=== PATIENT | male | born 1945 | race Caucasian/White ===

== ENCOUNTER 2018-05-28 19:17 | Emergency (ER) | payer MEDICARE, OTHER, SELFPAY ==
[2018-05-28 19:19] VITALS: BP 155/89; PULSE 85; PULSE 89; RESP 17; TEMP 36.7; O2SAT 95; BMI 34.6
[2018-05-28] MEDS: Ondansetron 4 MG/2 ML Vial IV (19:55)
[2018-05-28] MEDS: Morphine 4 MG/ML Syringe IV (19:55)
[2018-05-28] MEDS: 0.9% Normal Saline 1,000 ML 100 ML IV (19:55)
--- NOTE | 2018-05-28 20:10 | RAD_ITS ---
STUDY: X-RAY CHEST REASON FOR EXAM: Male, 72 years old. Cough, chills. TECHNIQUE: PA and lateral views of the chest. COMPARISON: November 28, 2013 FINDINGS: The lungs remain hyperinflated. There is no new focal consolidation. Normal size heart. Normal mediastinum and lou. Normal visualized pulmonary arteries. Normal visualized aortic arch and descending thoracic aorta. There are diffuse degenerative changes of the visualized thoracic spine. Normal visualized ribs, clavicles, and shoulders. There are air-fluid levels within distended loops of small bowel within the visualized abdomen. RAD/Chest PA and Lateral IMPRESSION: No acute cardiopulmonary process. Possible small bowel ileus or evolving partial obstruction. Electronically Signed: Deisy Henriquez MD at 21:13 EST Tel , Service support ,
[2018-05-28 20:16] LABS: Absolute Lymphocyte Count 0.95 X10^3/ul (0.83-4.51); Absolute Neutrophil Count 4.9 X10^3/uL (2.0-7.7); Basophil# 0.02 X10^3/uL; Basophil% 0.3 % (0-1); Eosinophil# 0.22 X10^3/uL; Eosinophils% 3.3 % (0-5); Hematocrit 45.4 % (40-54); Hemoglobin 14.7 g/dl (13.0-16.5); Lymphocyte # 0.95 X10^3/ul (4.0); Lymphocyte % 14.2 % (19-41); Mean Corp Hgb Conc 32.4 g/gl (32-36); Mean Corpuscular Hgb 29.1 pg (27.0-32.0); Mean Corpuscular Volume 89.7 fL (80-94); Mean Platelet Vol. 9.3 fl (6.2-12.0); Neutrophil # 4.87 X10^3/uL (2.7-7.7); Neutrophil % 73.1 % (47-70); POSITIVE COUNT NO; POSITIVE DIFFERENTIAL NO; POSITIVE MORPHOLOGY NO; Platelet Count 140 K/mm3 (150-450); RBC Distribution Width CV 14.2 % (11.6-14.6); RBC Distribution Width SD 46.1 fl (35.1-43.9); Red Blood Count 5.06 M/mm3 (4.6-6.2); White Blood Count 6.7 K/mm3 (4.4-11.0)
[2018-05-28 20:30] LABS: AST(SGOT) 22 U/L (15-37); Alanine Aminotransfer ALT/SGPT 36 U/L (16-61); Albumin, Serum 3.5 g/dL (3.2-5.0); Alkaline Phosphatase 87 U/L (45-117); Anion Gap 9 (5-15); BUN 17 mg/dL (7-18); BUN/Creat Ratio 9.2 RATIO (10-20); Bilirubin, Direct 0.13 mg/dL (0.00-0.30); Calcium,Total 8.9 mg/dL (8.5-10.1); Chloride 105 mmol/L (98-107); Creatinine, Serum 1.85 mg/dL (0.70-1.30); EST Glomerular Filtration Rate 38 mL/min (>60); Est Glom Filt Rate - Afr Amer 47 mL/min (>60); Estimated Creatinine Clearance 33.05 ml/min; Globulin 3.3 g/dL (2.2-4.2); Glucose 158 mg/dL (74-106); Potassium 3.9 mmol/L (3.5-5.1); Protein, Total 6.8 g/dL (6.4-8.2); Sodium Level 139 mmol/L (136-145)
[2018-05-28 20:42] LABS: Bacteria 0 SEEN /hpf (None Seen); Mucous, Urine 0 SEEN /hpf (<or=2+)
[2018-05-28 20:46] LABS: Color, Urine Yellow (Yellow); Glucose, Dipstick Normal (Normal); Ketone-Dipstick Negative (Negative); Leukocyte Esterase-Dipstick 25 /ul (Negative); Nitrite-Dipstick Negative (Negative); Occult Blood-Urine 25 /ul (Negative); Protein-Dipstick 15 mg/dl (Negative); Urine Bilirubin Dipstick Negative (Negative); Urine Clarity Clear (Clear); Urine Urobilinogen Normal (Normal)
[2018-05-28 21:13] LABS: Red Blood Cells-Urine 0-5 SEEN /hpf (0-5); Squamous Epithelial Cells - UA 0-5 SEEN /hpf (0-5); White Blood Cells 0-5 SEEN /hpf (0-5)
--- NOTE | 2018-05-28 22:11 | ED.DCSUM_ITS ---
- ER Visit Summary Date of Service: 05/28/18 Chief Complaint: Cough, chills, body aches History of Present Illness: The patient is a 72 M who became ill yesterday with body aches, chills, cough. He has not been bringing up any mucus. He has tried Tylenol and Robitussin without relief of his symptoms. He has a history of CHF and tells me he has a bad liver. Physical Examination: Vital signs gross unremarkable. He is afebrile here. Head neck examination reveals dry mucous membranes. Heart is regular rate and rhythm. Lungs sounds are mildly diminished. No wheezes or rhonchi. Abdomen is soft and nontender. Hypoactive but present bowel sounds are noted throughout. Lower extreme examination was no significant calf tenderness. Test Results: CBC is significant only for platelet count of 140,000. Chemistry studies significant for a creatinine 1.85. LFTs normal. Urinalysis unremarkable. Influenza swab negative. Two-view chest x-ray shows no acute process in the lungs. There is a possible small bowel ileus or evolving partial obstruction. Emergency Department Course and Treatment: Patient received IV fluids at 100 cc/h, morphine, and Zofran. On repeat exam patient feels improved. We discussed the abdominal findings on his x-ray. He reports having chronic diarrhea for greater than 1 year. He is passing gas and having bowel movements. He denies abdominal pain. He will continue to monitor his symptoms and if his abdominal symptoms worsen at all he will return. Treatment Plan: [] Disposition: Discharge Impression: Viral syndrome This note was generated with [employer] dictation software. It may contain incorrect words, spelling, and punctuation that were not noted in review of the chart prior to signing ED Disposition - Plan for ED Patient: Chief Complaint: General Illness Referrals: [facility] ,Out of [Primary Care Provider] -
--- NOTE | 2018-05-28 22:11 | ED.DEP ---
ED Disposition - Plan for ED Patient: Disposition: Home or Assisted Living Chief Complaint: General Illness Instructions: ED Viral Syndrome Referrals: [facility],Out of [Primary Care Provider] - 3-5 Days if not improving
[2018-05-28 22:27] VITALS: BP 132/95; PULSE 72; RESP 18
== END 2018-05-28 22:27 | disposition home or self-care (01) ==
PROVIDERS: Emergency Provider Emergency Medicine
DX: B34.9 Viral infection, unspecified (principal); I50.9 Heart failure, unspecified; Z79.51 Long term (current) use of inhaled steroids; Z79.899 Other long term (current) drug therapy
CPT/HCPCS: 71046; 80048; 80076; 81001; 85025; 87804; 96361; 96374; 96375; 99283; J7030; J2405

== ENCOUNTER → 2018-07-29 12:37 | Outpatient (CLI) | payer MEDICARE, OTHER, SELFPAY ==
--- NOTE | 2018-07-29 12:48 | RAD_ITS ---
STUDY: X-RAY CHEST REASON FOR EXAM: Male, 72 years old. Cough TECHNIQUE: Frontal and lateral views of the chest. COMPARISON: None. FINDINGS: The lungs are clear and expanded. There is no demonstrated pleural abnormality. Normal size heart. Normal mediastinum and lou. Normal visualized pulmonary arteries. Normal visualized aortic arch and descending thoracic aorta. Normal visualized thoracic spine. Normal visualized ribs, clavicles, and shoulders. Stable upper lumbar compression deformity. There is no demonstrated abnormality of the visualized soft tissue structures of the upper abdomen. RAD/Chest PA and Lateral IMPRESSION: No acute pulmonary findings. Electronically Signed: Saturnino Sky MD at 15:14 EDT Tel , Service support ,
== END ==
PROVIDERS: Referring Provider Internal Medicine; Visit Provider Internal Medicine
DX: R06.02 Shortness of breath (principal)
CPT/HCPCS: 71046

== ENCOUNTER → 2018-10-09 | Outpatient (CLI) | payer MEDICARE, OTHER, SELFPAY ==
--- NOTE | 2018-10-09 10:45 | STEWCON_ITS ---
Reason For Study: Chest Pain Stress Results Protocol: Luc Protocol WITH DEFINITY Maximum Predicted HR: 148 bpm Target HR: 126 bpm % Maximum Predicted HR: 85 % Heart Stage Duration Rate BP Comment (mm:ss) (bpm) Baseline 62 140/901 cc definity Unable to obtain BP d/t this nurse assisting with supporting on STAGE 1 3:00 117 / treadmill. Noted Increased SOB and leg discomfort at end of stage 1 STAGE 2 1:02 126 / Leg weakness and increased SOB noted, 1cc definity Recovery 84 152/94 Stress Duration: 4:02 mm:ss Maximum Stress HR: 126 bpm Baseline Echocardiogram Findings The estimated ejection fraction is 65 %. Stress Echo Wall motion Data Resting WM Intermediate WM Stress WM Resting Wall Motion Wall Motion Stress No regional wall motion Anterio-Basal: Hypokinetic. abnormalities noted. Basal anteroseptal: Mildly hypokinetic. Mid-anteroseptal : Mildly hypokinetic. EKG Data The baseline ECG displays normal sinus rhythm. The patient exercised according to the regular Luc protocol for a total duration of 4:01. The maximum heart rate attained was 127 beats per minute. This was 85% of maximum predicted heart rate. The patient exercised into stage 2 of the Luc protocol. During stress, there were no ST or T wave changes noted to suggest ischemia. No clinical angina was noted. Interpretation Summary The estimated ejection fraction is 65 %. Abnormal, adequate, treadmill echocardiogram. Positive for ischemia by echocardiographic criteria. No anginal symptoms noted. Rare PVCs noted. Appropriate blood pressure response to exercise. Below average exercise capacity for age. Patient appeared to develop mid anteroseptal hypokinesis at peak exercise. Poor echo windows requiring Definity contrast agent may affect results of echocardiogram test. Test terminated due to the attainment of target heart rate, and severe dyspnea. No complications. The study was technically difficult. Contrast injection was performed. Performed By: Christiano Bowers RCS
== END | disposition home or self-care (01) ==
LOC: CVS 10:40
DX: R07.89 Other chest pain (principal)
CPT/HCPCS: 93017; 93350; Q9957; A4216; C8928

== ENCOUNTER → 2018-11-10 | Outpatient (CLI) | payer MEDICARE, OTHER, SELFPAY ==
[2018-11-10 08:25] VITALS: BMI 33.9
--- NOTE | 2018-11-10 10:25 | ECHOCS_ITS ---
Reason For Study: CHF Procedure This was a 2D Doppler, Color Flow transthoracic echocardiogram. The study was technically difficult. Contrast injection was performed. Exam performed in department. Left Ventricle Normal size and thickness. The estimated ejection fraction is 60 %. Stage 1 diastolic dysfunction. No regional wall motion abnormalities noted. Right Ventricle Normal size and thickness. Normal systolic function. Atria Normal left atrium. Normal right atrium. Normal atrial septum. Mitral Valve The mitral valve is structurally normal. No prolapse or stenosis seen. Tricuspid Valve Normal tricuspid valve. Trivial tricuspid valve insufficiency. Right ventricular systolic pressure estimated to be 19 mmHg. Aortic Valve Normal aortic valve. Trisinus/trileaflet aortic valve. Pulmonic Valve Normal pulmonic valve. Great Vessels Normal aortic root. Normal arch. Normal inferior vena cava. Inferior vena cava collapse with sniff. Pericardium/Pleural No pericardial effusion. Medication 22 gauge I.V. with prn adaptor inserted into right arm. Diluted definity 3ml given slow IV push to enhance endocardial definition. MMode/2D Measurements & Calculations LVIDd: 4.2 cm IVSd: 1.2 cm LA dimension: 4.2 cm LVIDs: 2.9 cm LVPWd: 0.92 cm FS: 32.0 % LAV(MOD-bp): 50.5 ml LVAd ap4: 33.2 cm2 SV(MOD-sp4): 52.3 ml LAV(MOD-bp) Indexed: 24.7 ml/m2 EDV(MOD-sp4): 104.1 ml LAV(MOD-sp2): 41.5 ml EDV(sp4-el): 111.1 ml LAV(MOD-sp4): 55.3 ml LVAs ap4: 20.5 cm2 ESV(MOD-sp4): 51.9 ml ESV(sp4-el): 52.9 ml EF(MOD-sp4): 50.2 % EF(sp4-el): 52.4 % SV(sp4-el): 58.2 ml LA A4 area: 19.7 cm2 RA A4 area: 11.1 cm2 Time Measurements MV dec time: 0.30 sec Doppler Measurements & Calculations MV E max ariel: 48.7 cm/sec Lat Peak E' Ariel: 4.5 cm/sec Med Peak E' Ariel: 4.8 cm/sec MV A max ariel: 80.4 cm/sec E/E' lat: 10.9 E/E' med: 10.2 MV E/A: 0.61 MV V2 max: 78.9 cm/sec MV P1/2t max ariel: 52.2 cm/sec Ao V2 max: 87.4 cm/sec MV max P.5 mmHg MV P1/2t: 85.1 msec Ao max P.1 mmHg MV V2 mean: 38.1 cm/sec Ao V2 mean: 57.7 cm/sec MV mean P.71 mmHg MV dec slope: 179.6 cm/sec2 Ao mean P.5 mmHg MV V2 VTI: 19.8 cm MVA(P1/2t): 2.6 cm2 Ao V2 VTI: 17.4 cm LV V1 max: 81.5 cm/sec PA V2 max: 129.0 cm/sec TR max ariel: 202.2 cm/sec LV V1 max P.7 mmHg TR max P.5 mmHg LV V1 mean P.2 mmHg LV V1 mean: 51.1 cm/sec LV V1 VTI: 15.8 cm Interpretation Summary The estimated ejection fraction is 60 %. Stage 1 diastolic dysfunction. Trivial tricuspid valve insufficiency. Right ventricular systolic pressure estimated to be 19 mmHg. The study was technically difficult. Contrast injection was performed. There is no comparison study available. Ordering Physician: Louie Mercado Referring Physician: Louie Mercado Performed By: Christiano Bowers [facility]
== END | disposition home or self-care (01) ==
LOC: CVS 10:06
PROVIDERS: Referring Provider Internal Medicine Cardiovascular Disease; Visit Provider Internal Medicine Cardiovascular Disease
DX: I50.22 Chronic systolic (congestive) heart failure (principal); R94.39 Abnormal result of other cardiovascular function study; R07.9 Chest pain, unspecified; R06.02 Shortness of breath
CPT/HCPCS: 93306; Q9957; A4216; C8929

== ENCOUNTER 2018-11-12 06:17 | Day surgery (SDC) | payer MEDICARE, OTHER, SELFPAY ==
[2018-11-10 08:25] VITALS: BMI 33.9
[2018-11-10 10:51] LABS: Hematocrit 45.7 % (40-54); Hemoglobin 14.8 g/dl (13.0-16.5); Mean Corp Hgb Conc 32.4 g/gl (32-36); Mean Corpuscular Volume 86.4 fL (80-94); Mean Platelet Vol. 9.5 fl (6.2-12.0); Platelet Count 207 K/mm3 (150-450); RBC Distribution Width CV 14.7 % (11.6-14.6); RBC Distribution Width SD 46.8 fl (35.1-43.9); Red Blood Count 5.29 M/mm3 (4.6-6.2); White Blood Count 6.1 K/mm3 (4.4-11.0)
[2018-11-10 10:55] LABS: Scan Indicated on CBC? Y/N NO
[2018-11-10 11:02] LABS: International Normalized Ratio 1.1; Prothrombin Time (Protime)PT. 13.5 SECONDS (11.7-14.9)
[2018-11-10 11:03] LABS: Partial Thromboplast Time 36.5 Seconds (24.1-36.2)
[2018-11-10 11:16] LABS: AST(SGOT) 19 U/L (15-37); Alanine Aminotransfer ALT/SGPT 29 U/L (16-61); Albumin, Serum 3.5 g/dL (3.2-5.0); Alkaline Phosphatase 106 U/L (45-117); Anion Gap 8 (5-15); BUN 26 mg/dL (7-18); BUN/Creat Ratio 12.4 RATIO (10-20); Bilirubin, Direct 0.13 mg/dL (0.00-0.30); Calcium,Total 9.2 mg/dL (8.5-10.1); Chloride 104 mmol/L (98-107); Cholesterol 171 mg/dL (200); Creatinine, Serum 2.09 mg/dL (0.70-1.30); EST Glomerular Filtration Rate 33 mL/min (>60); Est Glom Filt Rate - Afr Amer 40 mL/min (>60); Glucose 111 mg/dL (74-106); High Density Lipoprotein 46 mg/dL; Potassium 4.3 mmol/L (3.5-5.1); Protein, Total 7.5 g/dL (6.4-8.2); Sodium Level 140 mmol/L (136-145); Triglycerides 138 mg/dL; Very Low Density Lipoprotein 28 mg/dL (5-40)
[2018-11-11 08:15] VITALS: BMI 33.9
--- NOTE | 2018-11-12 08:40 | CL.D_ITS ---
Patient Name: REBEKAH REID Study Date: 11/12/2018 Performing: Louie Mercado MD Ht: 66.14 inches 168 cm : 1945 Wt: 209.44 lbs 95 kg Age: 73 Gender: male BSA: 2.04 PROCEDURE(S) PERFORMED TM33-COV/COR/LV CLINICAL PROFILE AND INDICATIONS Indications: New Onset Angina <= 2 months, Suspected CAD Heart Failure: None Stress/Imaging Date: 10/09/2018Stress Echocardiogram: Positive Low Risk Angina Classification Anginal Classification w/in 2 Weeks: CCS III CAD Presentations: Unstable angina. Other: Dyspnea on exertion Comorbidities/Risk Factors: Hypertension CONCLUSIONS Normal coronary arteries Normal LV size, wall motion,and systolic function Normal Left Ventricular systolic function LVEF: by LV gram 60 % Normal Left Ventricular End Diastolic Pressure RECOMMENDATIONS No recommendations -> Normal findings D/c plavix, f/u with Dr Awad for pulmonary Wegeners Manual sheath removal. DESCRIPTION OF PROCEDURE The patient arrived to the procedure lab. The risks and benefits of the procedure as well as a full d escription of our services here and current unavailability of surgical backup were fully explained to the patient and/or their significant other prior to the catheterization. The Timeout was completed, verifying the correct patient and procedure. The patient's procedural site was prepped and draped in the usual fashion. Local anesthetic was given subcutaneously to right groin region with Lidocaine 2%. Using a modified Seldinger technique, arterial access was obtained via the right femoral artery, a 4 Fr sheath was inserted Left Coronary Artery selective angiography was performed in multiple views us ing a 4 Fr. JL5 catheter. Right Coronary Artery selective angiography was then performed in multiple views using a 4 Fr. 3DRC catheter. Left Ventriculography was performed in STERN projection using a 4 Fr . Pigtail catheter. LV to AO pullback pressures were then recorded.The arterial sheath was pulled and manual compression applied until hemostasis is achieved. CORONARY ANGIOGRAPHY DOMINANCE: Co- Dominant LEFT HEART ASSESSMENT Left Ventricular Ejection Fraction: by LV Gram 55-60 % Normal LV wall motion Normal Left Ventricular systolic function Normal Left Ventricular systolic function LVEDP: 6 mmHg LEFT MAIN: Angiographically normal LEFT ANTERIOR DESCENDING ARTERY: Angiographically normal CIRCUMFLEX ARTERY: Angiographically normal RIGHT CORONARY ARTERY: Angiographically normal COMPLICATIONS No Complications PROCEDURE MEDICATIONS Oxygen: 2 L/min via nasal cannula IV Fluids: .9 NaCl IV started @ 200 ml/hr 11/12/2018 07:11:52 SUMMARY OF HEMODYNAMIC DATA Time AIR REST ECG 07:07:09 AO 148/90 (111) SA 08:19:29 LV 133/-10, 6 08:26:09 LV 134/-9, 12 08:26:16 LVp 131/-11, 6 08:26:22 AOp 136/82 (103) 08:26:27 Signed By Louie Mercado MD On 11/12/2018 08:39:27 Louie Mercado MD
== END 2018-11-12 12:55 | disposition home or self-care (01) ==
LOC: CLSP 06:18
PROVIDERS: Referring Provider Internal Medicine Cardiovascular Disease; Visit Provider Internal Medicine Cardiovascular Disease
DX: I20.9 Angina pectoris, unspecified (principal); R07.9 Chest pain, unspecified; E78.5 Hyperlipidemia, unspecified; M31.31 Wegener's granulomatosis with renal involvement; N18.3 Chronic kidney disease, stage 3 (moderate); I11.0 Hypertensive heart disease with heart failure; I50.22 Chronic systolic (congestive) heart failure; G47.33 Obstructive sleep apnea (adult) (pediatric); R06.02 Shortness of breath; N40.0 Benign prostatic hyperplasia without lower urinary tract symptoms; Z87.891 Personal history of nicotine dependence; Z79.51 Long term (current) use of inhaled steroids; Z79.899 Other long term (current) drug therapy
CPT/HCPCS: 36415; 80048; 80061; 80076; 85027; 85610; 85730; 93458; J7040; Q9967; C1769

== ENCOUNTER 2018-12-05 23:51 | Emergency (ER) | payer MEDICARE, OTHER, SELFPAY ==
[2018-11-11 08:15] VITALS: BMI 33.9
[2018-12-05 23:52] VITALS: BP 144/94; PULSE 82; RESP 18; TEMP 36.6; O2SAT 97; BMI 34.5
--- NOTE | 2018-12-06 00:19 | ED.VIS.GEN ---
History of Present Illness Chief Complaint: Other, Pain/Inj Informant: Patient Onset: Days - Several Context: Gradual Onset Timing: Continuous Quality: Achy Location: Joints of all 4 extremities, back mostly lower Current Severity: Severe Maximum Severity: Severe Worsened by: Moving around Relieved by: Rest. Tylenol did not help much. Did not try any other medicines. Associated Symptoms: Swelling in ankles only Narrative: Achy in all joints, mostly ankles, fingers, shoulders, and low back but the low back discomfort is more to the right. No other back problem. Hurts more to move around, better to rest. No fevers, redness, no injury, no recent illness. - Past Medical History (1) BPH (benign prostatic hyperplasia) Status: Chronic (2) Chronic systolic heart failure Status: Chronic Comment: 65% per echo 11/29/[address] Driscoll @ [facility]; 46% per echo 04/03/14 @ [facility]. 65% per stress echo 10/10/18. (3) Essential hypertension Status: Chronic (4) Obstructive sleep apnea Status: Chronic (5) Prediabetes Status: Chronic (6) Zach's granulomatosis Status: Chronic Past Medical History - Allergies and Home Meds Allergies/Adverse Reactions: Allergies aspirin Adverse Reaction (Severe, Verified 12/05/18 23:52) cannot take d/t Zach's Vasculitis Primary Care Physician: [facility],Out of [Primary Care Provider] - Surgical History: total knee arthroplasty Lives: With Family Smoking Status: Former smoker - Family History Maternal Family History: Family History (Last Reviewed 11/10/18 @ 08:25 by Carolann Gutierres) Mother CAD (coronary artery disease) Congestive heart failure Father Prostate cancer Lung cancer Brother Colon cancer Sister Colon cancer Family History: Reports: No pertinent history Review of Systems General: Denies: Chills, Fever, Sweats Eyes: Denies: Visual changes - bilaterally, Diplopia ENT: Denies: Rhinorrhea, Sore throat Cardiovascular: Denies: Chest pain, Palpitations Respiratory: Denies: Dyspnea, Cough, Dyspnea on exertion Gastrointestinal: Reports: Diarrhea - Chronic, unchanged. Probiotics help temporarily.. Denies: Abdominal pain, Nausea, Vomiting, Melena, Hematochezia Genitourinary: Reports: - - Urinating as usual. Denies: Dysuria, Hematuria, Frequency Musculoskeletal: Reports: Arthralgias, Back pain, Swelling, Extremity Pain Skin: Denies: Rash, Wounds Neurological: Denies: Headache, Weakness, Numbness Physical Exam Vital Signs/Narrative: Vital Signs Temp Pulse Resp BP Pulse Ox 12/05/18 23:52 97.8 F 82 18 144/94 H 97 Inital Vital Signs reviewed: Yes General: Well nourished, Well developed, Obese - Truncal, No Acute Distress Head: Normocephalic, Atraumatic Eyes: Perrl, EOMI ENT: Moist mucous membranes, No rhinorrhea Neck: Supple, Nontender Cardiovascular: Regular rate, Regular rhythm, No murmurs. Negative for: Tachycardia Respiratory: No distress, CTA bilaterally, Chest nontender Abdomen: Soft, Nontender, Nondistended, Normal bowel sounds, Ventral hernia, Hernia reducible Back: Nontender, Normal Inspection. Negative for: CVA tenderness, Spinal tenderness Extremities: Tenderness - Both ankles, no warmth or erythema, Edema - Both ankles, but not proximal to this. 1+. Symmetric.. Negative for: Calf Tenderness Skin: Normal color, No rash, No Trauma Neurological: Alert, Oriented x3, Cranial nerves II-XII grossly intact, Normal Strength, Normal Sensation Psychological: Normal affect, Normal Mood Diagnostic/Tx/Re-eval Laboratory Results 12/06/18 12/06/18 12/06/18 00:30 00:30 00:37 WBC 8.4 RBC 5.11 Hgb 14.5 Hct 44.8 MCV 87.7 MCH 28.4 MCHC 32.4 RDW Std Deviation 49.1 H RDW Coeff of Misael 15.3 H Plt Count 178 MPV 9.0 Immature Gran % (Auto) 1.100 H Neut % (Auto) 73.8 H Lymph % (Auto) 13.5 L [place] % (Auto) 8.2 Eos % (Auto) 2.7 Baso % (Auto) 0.7 Absolute Neuts (auto) 6.2 Absolute Lymphs (auto) 1.14 Absolute Nucleated RBC 0.00 Nucleated RBC % 0 Sodium 132 L Potassium 4.4 Chloride 101 Carbon Dioxide 29.0 Anion Gap 2 L BUN 26 H Creatinine 1.82 H Estim Creat Clear Calc 33.11 Est GFR (MDRD) Af Amer 47 L Est GFR (MDRD) Non-Af 39 L BUN/Creatinine Ratio 14.3 Glucose 117 H Calcium 9.7 Urine Color Yellow Urine Clarity Sl. Cloudy Urine pH 6.0 Ur Specific [place] 1.015 Urine Protein 30 H Urine Glucose (UA) Normal Urine Ketones Negative Urine Occult Blood 150 H Urine Nitrite Negative Urine Bilirubin Negative Urine Urobilinogen Normal Ur Leukocyte Esterase Negative Urine RBC 10-25 SEEN Urine WBC 0-5 SEEN Ur Squamous Epith Cells 0 SEEN Urine Bacteria 0 SEEN Urine Mucus 0 SEEN - Medical Decision Making Lab shows some renal insufficiency, improved compared with a month ago, and the rest of them are unremarkable. Patient now tells me that a week ago he decided to take 20 mg of leftover prednisone one day and it helped this, but then the symptoms gradually returned. I do think prednisone is a reasonable empiric treatment to try, I will give him 40 mg daily for 5 days and advised that he follow-up. He is comfortable with that plan. ED Disposition - Plan for ED Patient: Disposition: Home or Assisted Living Diagnosis: Diffuse arthralgia, Zach's granulomatosis Instructions: Arthralgia Prescriptions: Prednisone [Deltasone] 40 mg PO DAILY #10 tab Transmission Status: Pending to [id number] Referrals: [facility] Doctor,Out of [Primary Care Provider] - 3-5 Days if not improving
[2018-12-06 00:34] LABS: Absolute Lymphocyte Count 1.14 X10^3/uL (0.83-4.51); Absolute Neutrophil Count 6.2 X10^3/uL (2.0-7.7); Basophil# 0.06 X10^3/uL; Basophil% 0.7 % (0-1); Eosinophil# 0.23 X10^3/uL; Eosinophils% 2.7 % (0-5); Hematocrit 44.8 % (40-54); Hemoglobin 14.5 g/dL (13.0-16.5); Lymphocyte # 1.14 X10^3/ul (4.0); Lymphocyte % 13.5 % (19-41); Mean Corp Hgb Conc 32.4 g/dL (32-36); Mean Corpuscular Hgb 28.4 pg (27.0-32.0); Mean Corpuscular Volume 87.7 fL (80-94); Monocyte# 0.69 X10^3/uL; Monocyte% 8.2 % (0-10); NRBC Flagged by Analyzer 0 % (0-5); Neutrophil # 6.22 X10^3/uL (2.7-7.7); Neutrophil % 73.8 % (47-70); Platelet Count 178 K/mm3 (150-450); RBC Distribution Width CV 15.3 % (11.6-14.6); RBC Distribution Width SD 49.1 fl (35.1-43.9); Red Blood Count 5.11 M/mm3 (4.6-6.2); White Blood Count 8.4 K/mm3 (4.4-11.0)
[2018-12-06 00:38] LABS: POSITIVE COUNT NO; POSITIVE DIFFERENTIAL NO; POSITIVE MORPHOLOGY NO
[2018-12-06 00:46] LABS: Anion Gap 2 (5-15); BUN 26 mg/dL (7-18); BUN/Creat Ratio 14.3 RATIO (10-20); Calcium,Total 9.7 mg/dL (8.5-10.1); Chloride 101 mmol/L (98-107); Creatinine, Serum 1.82 mg/dL (0.70-1.30); EST Glomerular Filtration Rate 39 mL/min (>60); Est Glom Filt Rate - Afr Amer 47 mL/min (>60); Estimated Creatinine Clearance 33.11 ml/min; Glucose 117 mg/dL (74-106); Potassium 4.4 mmol/L (3.5-5.1); Sodium Level 132 mmol/L (136-145)
[2018-12-06 00:47] LABS: Bacteria 0 SEEN /hpf (None Seen); Mucous, Urine 0 SEEN /hpf (<or=2+); Squamous Epithelial Cells - UA 0 SEEN /hpf (0-5)
[2018-12-06 00:49] LABS: Color, Urine Yellow (Yellow); Glucose, Dipstick Normal (Normal); Ketone-Dipstick Negative (Negative); Leukocyte Esterase-Dipstick Negative /ul (Negative); Nitrite-Dipstick Negative (Negative); Occult Blood-Urine 150 /ul (Negative); Protein-Dipstick 30 mg/dl (Negative); Specific Gravity, Urine 1.015 (1.002-1.030); Urine Bilirubin Dipstick Negative (Negative); Urine Clarity Sl. Cloudy (Clear); Urine Urobilinogen Normal (Normal)
[2018-12-06 01:01] LABS: Red Blood Cells-Urine 10-25 SEEN /hpf (0-5); White Blood Cells 0-5 SEEN /hpf (0-5)
[2018-12-06 02:02] VITALS: BP 154/97; PULSE 91; RESP 22; O2SAT 97
[2018-12-06 02:59] VITALS: BP 137/58; PULSE 81; RESP 18; O2SAT 95
== END 2018-12-06 03:00 | disposition home or self-care (01) ==
PROVIDERS: Emergency Provider Emergency Medicine
DX: M31.30 Wegener's granulomatosis without renal involvement (principal); M25.572 Pain in left ankle and joints of left foot; M25.571 Pain in right ankle and joints of right foot; M25.542 Pain in joints of left hand; M25.541 Pain in joints of right hand; M25.512 Pain in left shoulder; M25.511 Pain in right shoulder; M54.5 Low back pain; I11.0 Hypertensive heart disease with heart failure; I50.22 Chronic systolic (congestive) heart failure; N40.0 Benign prostatic hyperplasia without lower urinary tract symptoms; G47.33 Obstructive sleep apnea (adult) (pediatric); Z79.899 Other long term (current) drug therapy; Z87.891 Personal history of nicotine dependence; E66.9 Obesity, unspecified
CPT/HCPCS: 80048; 81001; 85025; 99282

== ENCOUNTER 2019-02-25 20:33 | Emergency (ER) | payer MEDICARE, OTHER, SELFPAY ==
[2019-02-25 20:34] VITALS: BP 111/70; PULSE 88; RESP 14; TEMP 37; O2SAT 97; BMI 33.0
--- NOTE | 2019-02-25 20:41 | EKG12_ITS ---
Test Reason : Blood Pressure : / mmHG Vent. Rate : 085 BPM Atrial Rate : 085 BPM P-R Int : 166 ms QRS Dur : 068 ms QT Int : 368 ms P-R-T Axes : 044 033 037 degrees QTc Int : 437 ms Normal sinus rhythm Normal ECG Confirmed by DANYA SUMMERS, RUFUS ([id number]), manager editorial SHELBY SWANN ([id number]) on 03/03/2019 9:37:09 AM Referred By: JOSHUA Confirmed By:JANET HAGAN MD
--- NOTE | 2019-02-25 20:41 | RAD_ITS ---
STUDY: X-RAY CHEST REASON FOR EXAM: Male, 73 years old. Chest pain and hypotension. TECHNIQUE: Single AP portable view of the chest. COMPARISON: Prior chest radiograph of July 29, 2018. FINDINGS: The lungs are clear and expanded. Negative for new consolidation, focal atelectasis or a substantial pleural effusion. Normal size heart. Normal mediastinum and lou. Normal visualized pulmonary arteries. Normal visualized aortic arch and descending thoracic aorta. There are diffuse degenerative changes of the visualized thoracic spine. Normal visualized ribs, clavicles, and shoulders. There is no demonstrated abnormality of the visualized soft tissue structures of the upper abdomen. RAD/Chest 1 View (Portable) IMPRESSION: No acute cardiopulmonary findings or changes. Electronically Signed: Nubia Pepper MD at 21:07 EDT , Service support ,
[2019-02-25 20:50] VITALS: O2SAT 95
[2019-02-25 21:01] LABS: Absolute Lymphocyte Count 1.04 X10^3/uL (0.83-4.51); Absolute Neutrophil Count 5.4 X10^3/uL (2.0-7.7); Basophil# 0.07 X10^3/uL; Eosinophil# 0.18 X10^3/uL; Eosinophils% 2.5 % (0-5); Hematocrit 44.6 % (40-54); Hemoglobin 14.4 g/dL (13.0-16.5); Lymphocyte # 1.04 X10^3/ul (4.0); Lymphocyte % 14.3 % (19-41); Mean Corp Hgb Conc 32.3 g/dL (32-36); Mean Corpuscular Hgb 28.7 pg (27.0-32.0); Mean Corpuscular Volume 88.8 fL (80-94); Mean Platelet Vol. 8.9 fl (6.2-12.0); Monocyte# 0.51 X10^3/uL; NRBC Flagged by Analyzer 0 % (0-5); Neutrophil # 5.42 X10^3/uL (2.7-7.7); Neutrophil % 74.8 % (47-70); Platelet Count 214 K/mm3 (150-450); RBC Distribution Width SD 45.5 fl (35.1-43.9); Red Blood Count 5.02 M/mm3 (4.6-6.2); White Blood Count 7.3 K/mm3 (4.4-11.0)
--- NOTE | 2019-02-25 21:17 | ED.VIS.GEN ---
History of Present Illness Chief Complaint: Hypotension Informant: Patient Onset: Today Current Severity: Mild Maximum Severity: Mild Narrative: Patient complains of generalized fatigue and a blood pressure at home of about 90. Indicates he has a main diagnosis of Zach's granulomatosis and some renal insufficiency, he has no history of ID PE or DVT. Indicates that he takes Lasix for his medical conditions, he usually takes 80 a day, yesterday he took 120 and all night long he indicates he urinated at least a gallon of urine: A large amount of urine more than his normal he woke up feeling relatively normal except slightly fatigued he was able to actually go fishing he was out in the sun for a few hours, as he was coming home he felt fatigued, he ate dinner and was more fatigued took his blood pressure was about 85-90 he was brought to the hospital He indicates it is not unusual for him to have a low blood pressure to that range it usually responds without therapy, he indicates he has had no fever no cough no chest pain normal bowel bladder habits except of the above increased urination with Lasix, his current blood pressure is about 110 without specific therapy he is resting comfortably in the bed in no distress, at one point time the doctors were concerned he might have congestive heart failure but it turns out he does not have that condition and indicates he does not have any history of cardiovascular disease other than blood pressure issues from the Zach's and occasional hematuria from Zach's but has not had either recently Past Medical History - Allergies and Home Meds Allergies/Adverse Reactions: Allergies aspirin Adverse Reaction (Severe, Verified 02/25/19 20:36) cannot take d/t Zach's Vasculitis Primary Care Physician: [facility] Doctor,Out of [Primary Care Provider] - Past Medical History: - - Zach's granulomatosis and renal condition, and blood pressure issues by his report Surgical History: total knee arthroplasty Smoking Status: Former smoker - Family History Maternal Family History: Family History (Last Reviewed 11/10/18 @ 08:25 by Carolann Gutierres) Mother CAD (coronary artery disease) Congestive heart failure Father Prostate cancer Lung cancer Brother Colon cancer Sister Colon cancer Family History: Reports: No pertinent history Review of Systems General: Reports: - - Only complaint is generalized fatigue. Denies: Chills, Fever, Sweats Eyes: Denies: Visual changes - bilaterally, Diplopia ENT: Denies: Rhinorrhea, Sore throat Cardiovascular: Denies: Chest pain, Palpitations Respiratory: Denies: Dyspnea, Cough, Dyspnea on exertion Gastrointestinal: Denies: Abdominal pain, Nausea, Vomiting, Diarrhea, Melena, Hematochezia Genitourinary: Denies: Dysuria, Hematuria, Frequency Musculoskeletal: Denies: Back pain, Extremity Pain Skin: Denies: Rash, Wounds Neurological: Denies: Headache, Weakness, Numbness Physical Exam Vital Signs/Narrative: Vital Signs Temp Pulse Resp BP Pulse Ox 02/25/19 20:50 95 02/25/19 20:34 98.6 F 88 14 111/70 97 General: Well nourished, Well developed, No Acute Distress Head: Normocephalic, Atraumatic Eyes: Perrl, EOMI ENT: Moist mucous membranes, No rhinorrhea Neck: Supple, Nontender Cardiovascular: Regular rate, Regular rhythm, No murmurs Respiratory: No distress, CTA bilaterally, Chest nontender Abdomen: Soft, Nontender, Nondistended, Normal bowel sounds Back: Nontender, Normal Inspection Extremities: Nontender, No edema Skin: Normal color, No rash Neurological: Alert, Oriented x3, Cranial nerves II-XII grossly intact, Normal Strength, Normal Sensation Psychological: Normal affect, Normal Mood Diagnostic/Tx/Re-eval - Medical Decision Making Physical exam is unremarkable he is resting comfortably in the bed his blood pressure is within normal range at this time he is moving all 4 extremities his family is in the room with him all the above EKG is obtained which shows a sinus rhythm no acute injury pattern appreciated all intervals normal labs IV fluids oral fluids, he is taking oral fluids IV fluids, creatinine baseline is around 2 today 3 Evaluation is resting company the bed his blood pressure is about 100/60 he is had blood pressures as high as 110/60 we discussed inpatient versus outpatient management him in the family he does not wish to be admitted he prefers outpatient management he states he feels fine he is under the belief that the Lasix caused excessive diuresis yesterday which is happened in the past he knows how to use the Lasix and he prefers outpatient management He will avoid the Lasix, rest drink plenty of fluids including Gatorade without sugar, follow-up with his outpatient providers and return for change in symptoms Home stable Final impression genRealized weakness and hypotension suspect related to dehydration excess Lasix use, history of renal insufficiency Zach's granulomatosis ED Disposition - Plan for ED Patient: Diagnosis: Zach's granulomatosis, Generalized weakness, Hypotension Instructions: HYPOTENSION, Orthostatic, HYPOTENSION, All Causes Referrals: [facility] Doctor,Out of [Primary Care Provider] -
[2019-02-25 21:19] LABS: Anion Gap 9 (5-15); BUN 37 mg/dL (7-18); BUN/Creat Ratio 12.1 RATIO (10-20); Chloride 99 mmol/L (98-107); Creatinine, Serum 3.07 mg/dL (0.70-1.30); EST Glomerular Filtration Rate 21 mL/min (>60); Est Glom Filt Rate - Afr Amer 26 mL/min (>60); Estimated Creatinine Clearance 19.63 ml/min; Glucose 205 mg/dL (74-106); Potassium 3.8 mmol/L (3.5-5.1); Sodium Level 134 mmol/L (136-145)
[2019-02-25 21:31] LABS: BNP,B-Type NATRIURETIC PEPTIDE 23.8 pg/mL (0-100)
[2019-02-25 21:57] VITALS: BP 101/68; PULSE 82; RESP 15; O2SAT 96
[2019-02-25 22:22] VITALS: BP 93/66; PULSE 75; RESP 18; O2SAT 98
== END 2019-02-25 22:22 | disposition home or self-care (01) ==
LOC: ED 20:59
PROVIDERS: Emergency Provider Emergency Medicine
DX: M31.30 Wegener's granulomatosis without renal involvement (principal); I95.9 Hypotension, unspecified; R53.1 Weakness; N28.9 Disorder of kidney and ureter, unspecified; Z79.899 Other long term (current) drug therapy; Z87.891 Personal history of nicotine dependence
CPT/HCPCS: 71045; 80048; 83880; 84484; 85025; 93005; 96360; 99284; J7030; A4216

== ENCOUNTER 2019-12-11 20:46 | Emergency (ER) | payer MEDICARE, SELFPAY ==
[2019-12-11 20:48] VITALS: BP 154/93; PULSE 76; RESP 22; TEMP 36; O2SAT 96; BMI 31.4
--- NOTE | 2019-12-11 22:06 | EKG12_ITS ---
Test Reason : Blood Pressure : / mmHG Vent. Rate : 078 BPM Atrial Rate : 078 BPM P-R Int : 142 ms QRS Dur : 066 ms QT Int : 360 ms P-R-T Axes : 056 006 050 degrees QTc Int : 410 ms Sinus rhythm with frequent and consecutive Premature ventricular complexes Abnormal ECG Confirmed by AFSHAN SUMMERS, DAVID ([id number]), newspaper managing editor SHELBY SWANN ([id number]) on 12/13/2019 1:14:51 PM Referred By: Confirmed By:DAVID CAVANAUGH MD
--- NOTE | 2019-12-11 22:10 | RAD_ITS ---
STUDY: X-RAY CHEST REASON FOR EXAM: Male, 74 years old. Fatigue. TECHNIQUE: AP portable upright COMPARISON: 02/25/2019 CXR FINDINGS: No evidence of pneumonia, pulmonary edema, pneumothorax or pleural effusion. Cardiac silhouette, hilar and mediastinal contours with no acute findings. Heart size normal. Atherosclerosis of the thoracic aorta. Degenerative osseous changes with no acute osseous abnormality. RAD/Chest 1 View (Portable) IMPRESSION: No acute findings. Electronically Signed: Boom Estes, at 22:54 EDT Tel , Service support ,
[2019-12-11 22:28] LABS: Hematocrit 35.1 % (40-54); Mean Corp Hgb Conc 31.3 g/dL (32-36); Mean Corpuscular Hgb 28.1 pg (27.0-32.0); Mean Corpuscular Volume 89.8 fL (80-94); Mean Platelet Vol. 9.4 fl (6.2-12.0); POSITIVE COUNT YES; POSITIVE DIFFERENTIAL YES; Platelet Count 92 K/mm3 (150-450); RBC Distribution Width CV 18.5 % (11.6-14.6); RBC Distribution Width SD 59.8 fl (35.1-43.9); Red Blood Count 3.91 M/mm3 (4.6-6.2); White Blood Count 7.4 K/mm3 (4.4-11.0)
[2019-12-11 22:35] LABS: ALB/GLOB Ratio 1.2 RATIO (0.9-2.4); AST(SGOT) 9 U/L (15-37); Alanine Aminotransfer ALT/SGPT 29 U/L (16-61); Albumin, Serum 2.9 g/dL (3.2-5.0); Alkaline Phosphatase 37 U/L (45-117); Anion Gap 7 (5-15); BUN 62 mg/dL (7-18); BUN/Creat Ratio 20.7 RATIO (10-20); Calcium,Total 7.9 mg/dL (8.5-10.1); Chloride 109 mmol/L (98-107); EST Glomerular Filtration Rate 22 mL/min (>60); Est Glom Filt Rate - Afr Amer 27 mL/min (>60); Estimated Creatinine Clearance 19.79 ml/min; Globulin 2.5 g/dL (2.2-4.2); Glucose 209 mg/dL (74-106); Potassium 5.2 mmol/L (3.5-5.1); Protein, Total 5.4 g/dL (6.4-8.2); Sodium Level 137 mmol/L (136-145)
[2019-12-11 22:45] LABS: Bacteria 0 SEEN /hpf (None Seen); Mucous, Urine 0 SEEN /hpf (<or=2+); White Blood Cells 0 SEEN /hpf (0-5)
[2019-12-11 22:51] LABS: Color, Urine Yellow (Yellow); Glucose, Dipstick 250 mg/dl (Normal); Ketone-Dipstick Negative (Negative); Leukocyte Esterase-Dipstick Negative /ul (Negative); Nitrite-Dipstick Negative (Negative); Occult Blood-Urine 150 /ul (Negative); Protein-Dipstick 100 mg/dl (Negative); Specific Gravity, Urine 1.015 (1.002-1.030); Urine Bilirubin Dipstick Negative (Negative); Urine Clarity Clear (Clear); Urine Urobilinogen Normal (Normal)
--- NOTE | 2019-12-11 22:56 | ED.VISSUMM ---
- ER Visit Summary Date of Service: 12/11/19 Chief Complaint: Fatigue and weakness History of Present Illness: The patient is a [address] Mendez and Dr. Calle. 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 His last dose was November 14. He reports that typically after chemo he feels fatigued and weak. However, this time he has not bounced back. Patient reports that he has mild shortness of breath. He denies any fever, chills, or cough. He denies any abdominal pain, nausea, vomiting, diarrhea. He had loose stools for the past 2 days. No melena or hematochezia. He had frequent urination, but no dysuria. Patient denies sick contacts. He does report he is been wearing a mask when he goes out. Physical Examination: Vitals: Stable. Afebrile. General: Well-nourished and well-developed. Head: Normocephalic atraumatic. Neck: Supple, no lymphadenopathy. No JVD. Nontender. Cardiovascular: Regular rate and rhythm. 2 out of 6 systolic murmur. Respiratory: No respiratory distress. Clear to auscultation bilaterally. Abdominal: Soft, nontender, nondistended, normal bowel sounds. No guarding, rebound, or peritoneal signs. Back: Nontender. Extremities: Nontender, 1+ pitting edema lower extremities bilaterally. Skin: Normal color, no rash. Neurologic: Alert and oriented ?3. Cranial nerves II through XII are intact. Normal strength and sensation. Psych: Normal affect. Test Results: CBC shows an H&H 11.0 and 35.1, platelets 92, 7 neutrophils of 90, lymphocytes of 3. He has immature GliaSite to 5%. Chem-7 shows a potassium of 5.2, chloride 109, glucose of 2 9, creatinine 3.0. His baseline creatinine is 1.85?3.07 in 2019. LFTs show globulin of 5.4 and albumin of 2.9. His corrected calcium is 8.8. Alk phos is 37 and AST is 9. UA shows 5-10 red blood cells. Troponin is negative. COVID is negative. Chest x-ray shows chronic changes. Emergency Department Course and Treatment: Patient was given a liter of normal saline and is resting comfortably. He would like to go home. Treatment Plan: Patient be discharged with instructions to follow-up with his primary care physician in 2 days if not improving. Return to the emergency department for any worsening symptoms. Disposition: To home in improved and stable condition. Impression: 1. Fatigue, uncertain cause. 2. Chronic renal insufficiency. 3. Zach's granulomatosis on chemotherapy. This note was generated with [employer] dictation software. It may contain incorrect words, spelling, and punctuation that were not noted in review of the chart prior to signing ED Disposition - Plan for ED Patient: Disposition: Home or Assisted Living Instructions: ED Weakness [facility] Referrals: Doctor,Your [STAFF PHYSICIAN] - 2 Days
[2019-12-11 23:02] LABS: BNP,B-Type NATRIURETIC PEPTIDE 54.4 pg/mL (0-100)
[2019-12-11 23:03] LABS: Red Blood Cells-Urine 5-10 SEEN /hpf (0-5); Squamous Epithelial Cells - UA 0-5 SEEN /hpf (0-5)
[2019-12-11 23:16] VITALS: BP 138/93; PULSE 74; RESP 18; O2SAT 95
[2019-12-11 23:53] LABS: Differential Indicated MANUAL DIFF
[2019-12-12 00:02] LABS: Differential Comment SCANNED; Lymphocyte 6 % (19-41); Monocyte 2 % (0-10); Myelocyte 2 (0-0); Neutrophil-Band 1 % (0-5); Neutrophil-Segmented 89 % (47-70)
[2019-12-12 00:03] LABS: Anisocytosis 2+; Ovalocyte RARE; Platelet Estimate MOD DEC (ADEQ); Tear Drop Cell RARE
[2019-12-12 00:05] LABS: Absolute Lymphocyte Count 0.44 X10^3/uL (0.83-4.51); Absolute Neutrophil Count 6.7 X10^3/uL (2.0-7.7); Lymphocyte # 0.44 X10^3/ul (4.0); Neutrophil # 6.66 X10^3/uL (2.7-7.7)
[2019-12-12 00:20] LABS: Probe Check PASS; Specimen Processing Control PASS
[2019-12-12 00:35] VITALS: BP 147/91; PULSE 76; RESP 13; O2SAT 97
[2019-12-13 12:57] LABS: Pathologist Review Reviewed
== END 2019-12-12 00:35 | disposition home or self-care (01) ==
LOC: ED 22:02
PROVIDERS: Emergency Provider Emergency Medicine
DX: R53.83 Other fatigue (principal); M31.31 Wegener's granulomatosis with renal involvement; I11.0 Hypertensive heart disease with heart failure; I50.9 Heart failure, unspecified; E11.9 Type 2 diabetes mellitus without complications; Z79.899 Other long term (current) drug therapy
CPT/HCPCS: 71045; 80053; 81001; 83880; 84484; 85025; 87635; 93005; 94799; 96360; 99284; J7030; A4216; U0003

== ENCOUNTER 2020-11-04 13:42 | Observation (INO) | payer MEDICARE, OTHER, SELFPAY ==
[2020-11-04] VITALS (9 sets, daily range): BP systolic 142–163; BP diastolic 88–98; PULSE 80–92; RESP 14–20; TEMP 36.8–38.4; O2SAT 95–99; BMI 31.8; BMI 31.6
--- NOTE | 2020-11-04 15:04 | EKG12_ITS ---
Test Reason : SOB Blood Pressure : / mmHG Vent. Rate : 092 BPM Atrial Rate : 092 BPM P-R Int : 160 ms QRS Dur : 070 ms QT Int : 344 ms P-R-T Axes : 044 013 040 degrees QTc Int : 425 ms Sinus rhythm with frequent Premature ventricular complexes Otherwise normal ECG Confirmed by DANYA SUMMERS, RUFUS ([id number]), continuity editor AURORA DEL VALLE ([id number]) on 11/06/2020 10:43:02 A M Referred By: CRISTHIAN Confirmed By:JANET HAGAN MD
--- NOTE | 2020-11-04 15:15 | RAD_ITS ---
HISTORY: FATIGUE EXAMINATION/TECHNIQUE: XR Chest 1 View: AP portable upright chest x-ray COMPARISON: 12/11/19 FINDINGS: LINES/DEVICES: None. LUNGS: No consolidation, edema or effusion. No pneumothorax. MEDIASTINUM AND CARDIOVASCULAR STRUCTURES: Cardiac silhouette not enlarged. Central airways and mediastinal contour are unremarkable. BONES AND SOFT TISSUES: No acute bony abnormalities. RAD/Chest 1 View (Portable) IMPRESSION: No radiographic evidence of acute cardiopulmonary disease. at 1615 Reported and signed by: Hadley Melton MD Electronically Signed: Hadley Melton MD at 16:14 EDT Tel , Service support ,
--- NOTE | 2020-11-04 15:29 | EDS_ITS ---
HPI History of Present Illness Chief Complaint: Fatigue Detail of Chief Complaint: Cough and generalized weakness Informant: patient and spouse/S.O. Onset/Context/Timing Onset: Yesterday Context: Gradual Onset Timing: Continuous Current Severity: Mild Maximum Severity: Moderate Narrative Narrative: 75-year-old male history of Zach's granulomatosis with renal insufficiency. Had chemotherapy for his Zach's approximately a year ago. Said yesterday started having a cough progressively gotten more fatigued and weak in the last 24 hours. States the cough is nonproductive. He denies any nausea vomiting or diarrhea. He denies any fever chills clinically feels warm. He did get his Covid vaccinations x2. He denies any recent hospitalization. Prior similar symptoms: No Recent Illness/Hospitalization: No PFSH PFSH Medical History Abnormal stress echo BPH (benign prostatic hyperplasia) Chest pain Chronic kidney disease, stage 3 (moderate) Chronic systolic heart failure Claudication Essential hypertension Hard of hearing History of tobacco use Obstructive sleep apnea Prediabetes Shortness of breath Zach's granulomatosis Home Medications albuterol sulfate 2 puff INHALATION Q6H PRN PRN 05/28/18 [History Last Taken Unknown] fluticasone propionate 2 spray NASAL DAILY PRN 05/28/18 [History Last Taken Unknown] metoprolol tartrate 25 mg PO BID 05/28/18 [History Last Taken 11/12/18] omeprazole 40 mg capsule,delayed release 40 mg PO DAILY 11/04/18 [History Last Taken 11/12/18] gabapentin 100 mg capsule 100 mg PO DAILY cap 11/10/18 [History Last Taken Unknown] omega-3 fatty acids 1,000 mg capsule 1,000 mg PO DAILY 11/10/18 [History Last Taken Unknown] sodium bicarbonate 1 tab PO TID 12/11/19 [History Last Taken Unknown] azathioprine 100 mg PO DAILY 11/04/20 [History Last Taken Unknown] cholecalciferol (vitamin D3) [Vitamin D3] 25 mcg PO DAILY 11/04/20 [History Last Taken Unknown] clotrimazole [Mycelex] 10 mg MUCOUS MEMBRANE TID 11/04/20 [History Last Taken Unknown] gabapentin 200 mg PO QHS 11/04/20 [History Last Taken Unknown] oxycodone-acetaminophen 1 tab PO Q6H PRN 11/04/20 [History Last Taken Unknown] sulfamethoxazole-trimethoprim 1 tab PO DAILY 11/04/20 [History Last Taken Unknown] Allergy/AdvReac Type Severity Reaction Status Date / Time aspirin AdvReac Severe cannot Verified 11/04/20 13:47 take d/t Zach's Vasculitis Family History Mother CAD (coronary artery disease) Congestive heart failure Father Prostate cancer Lung cancer Brother Colon cancer Sister Colon cancer Surgical History H/O arthroscopy of left knee (1988) History of colonoscopy History of endoscopy (01/02/16) History of left heart catheterization (11/12/18) History of prostate biopsy (01/11/14) History of total right hip arthroplasty (02/05/16) S/P arthroscopic surgery of left knee (1989) Status post biopsy of kidney (12/2013) Social History Smoking Status: Never smoker ROS ROS ED ROS Narrative Cough and fatigue. Review of Systems ROS Unobtainable: Denies due to encephalopathy Constitutional Constitutional ED: Reports chills; Denies fever(s) Eyes Eyes: Denies change in vision ENT ENT ED: Denies ear pain or sore throat Cardiovascular Cardiovascular: Denies chest pain or palpitations Respiratory/Chest Respiratory/Chest: Reports cough and dyspnea; Denies sputum Gastrointestinal Gastrointestinal: Denies abdominal pain, diarrhea, nausea or vomiting Genitourinary Genitourinary ED: Denies dysuria or hematuria Musculoskeletal Musculoskeletal: Reports myalgias Integumentary Denies abscess or rash Neurologic Neurologic: Denies headache(s) Psychiatric Psychiatric: Denies depression Endocrine Endocrinology: Denies polyuria Allergic/Immunologic Allergic/Immunologic ED: Denies urticaria EXAM Physical Exam Narrative Exam Narrative: Elderly male looks generally weak. His vital signs are stable his temperature is 99 to I presume is actually warmer than that. Pulse ox 96% on room air. Initial blood pressure is 163/93. HEENT exam unremarkable mildly dry mucous membranes. Neck nontender no lymphadenopathy. Lungs wet cough no rales or rhonchi. Heart regular rhythm rate about 90 no murmur. Abdomen soft nontender normal bowel sounds no peritoneal signs. Extremities moves all 4. Calves nontender without edema or cords. Neurologically patient is awake alert with no focal motor deficits. Const Vital Signs: 11/04/20 13:43 11/04/20 15:12 11/04/20 16:14 Temperature 99.2 F H 99.2 F H Temperature Source Oral Temporal Pulse Rate 89 92 Respiratory Rate 14 20 H Respiratory Pattern Normal Blood Pressure 163/93 H 159/92 H Blood Pressure Mean 116 114 Pulse Ox 96 96 97 Oxygen Delivery Method Room Air Room Air Room Air 11/04/20 16:53 Temperature 101.1 F H Temperature Source Oral Pulse Rate 89 Respiratory Rate 20 H Respiratory Pattern Blood Pressure 146/91 H Blood Pressure Mean 109 Pulse Ox 97 Oxygen Delivery Method Room Air Positive well nourished and well developed General Appearance ED: well developed HEENT Reports dry mucous membranes Negative for trauma or tenderness Mouth ED: Yes dry mucous membranes Mouth: dry mucous membranes Eyes PERRL and EOMs intact bilaterally Neck no lymphadenopathy, supple and no JVD General: Negative for tenderness Chest Wall inspection of chest normal and palpation of chest normal Resp normal respiratory effort and clear to auscultation bilaterally Effort and Inspection: Negative for pain with movement Auscultation: Negative for rhonchi or diminished lung sounds Cardio regular rate, regular rhythm and no murmurs GI normal to inspection, nondistended, normoactive bowel sounds, non-tender, non- distended and no masses Auscultation: normoactive bowel sounds Palpation: soft; Negative for tender or guarding Back/Spine no CVA tenderness General Back: Negative for CVA tenderness Extremity normal to inspection General Extremety ED: Negative for edema or tenderness General Extremity: Negative for edema Neuro oriented x3 and CN's II-XII intact bilaterally Sensorium / Orientation: alert Motor Exam: strength 5/5 throughout Psych mental status grossly normal Skin no rashes or lesions noted and no wounds MDM MDM MDM Narrative Medical decision making narrative: Older male with fatigue and cough differential diagnosis obviously infectious etiology pneumonia versus Covid versus other. Undergo a septic work-up and received IV fluids. And will need admission. Repeat exam no change at 5:20 PM. Patient feel that he is too weak to go home and he cannot walk at home. I spoke to the hospitalist there also could obtain a Covid PCR the patient will be admitted. Lab Data Attestation: I reviewed the patient's lab results. Lab results narrative: CBC normal white count of 7. Hemoglobin 13. Electrolytes unremarkable gap is 7. He is known chronic renal insufficiency his creatinine is 3.6 and at his baseline. Lactic acid normal 1.0. PT INR unremarkable. Chest x-ray shows chronic changes portable 1 view interpreted bot h by myself and the radiologist. Labs: Laboratory Results - last 24 hr 11/04/20 11/04/20 11/04/20 15:08 15:08 15:43 WBC 7.1 RBC 4.42 L Hgb 13.6 Hct 42.3 MCV 95.7 H MCH 30.8 MCHC 32.2 RDW Std Deviation 48.5 H RDW Coeff of Imsael 13.7 Plt Count 141 L MPV 9.9 Immature Gran % (Auto) 0.600 Neut % (Auto) 86.3 H Lymph % (Auto) 6.3 L Bradley % (Auto) 6.1 Eos % (Auto) 0.4 Baso % (Auto) 0.3 Absolute Neuts (auto) 6.1 Absolute Lymphs (auto) 0.45 L Nucleated RBC % 0 PT INR APTT Sodium 137 Potassium 5.0 Chloride 105 Carbon Dioxide 25.0 Anion Gap 7 BUN 35 H Creatinine 3.63 H Estim Creat Clear Calc 17.27 Est GFR (MDRD) Af Amer 21 L Est GFR (MDRD) Non-Af 18 L BUN/Creatinine Ratio 9.6 L Glucose 116 H Lactic Acid 1.0 Calcium 9.5 11/04/20 16:30 WBC RBC Hgb Hct MCV MCH MCHC RDW Std Deviation RDW Coeff of Misael Plt Count MPV Immature Gran % (Auto) Neut % (Auto) Lymph % (Auto) Bradley % (Auto) Eos % (Auto) Baso % (Auto) Absolute Neuts (auto) Absolute Lymphs (auto) Nucleated RBC % PT 13.8 INR 1.1 APTT 30.5 Sodium Potassium Chloride Carbon Dioxide Anion Gap BUN Creatinine Estim Creat Clear Calc Est GFR (MDRD) Af Amer Est GFR (MDRD) Non-Af BUN/Creatinine Ratio Glucose Lactic Acid Calcium Radiography Chest X-Ray - ED: 1 View, Read by ED Physician, Read by Radiologist, Unchanged, Normal, Heart, Lungs, Mediastinum and Bony Structures Diagnostic Testing: Radiology Impression Chest X-Ray 11/04/20 15:15 IMPRESSION: No radiographic evidence of acute cardiopulmonary disease. at 1615 Reported and signed by: Hadley Melton MD Electronically Signed: Hadley Melton MD at 16:14 EDT Tel , Service support , Rhythm Strip Rhythm Strip: Sinus Rhythm Rate: 92 Ectopy: PVC(s) EKG Initial EKG: Attestation: I personally reviewed and interpreted this EKG as follows: Interpretation: Sinus Rhythm and No Acute Injury Pattern Comments: Normal sinus rhythm rate of 92 with PVCs. No signs of NV nor ischemia. Prior EKG tracings: not available for review Discharge Plan Dx/Rx/DC Orders Clinical Impression: Upper respiratory infection, viral, Generalized weakness, Zach's granulomatosis Disposition Disposition: Acute Care Hospital [facility]
[2020-11-04 15:35] LABS: Absolute Lymphocyte Count 0.45 X10^3/uL (0.83-4.51); Absolute Neutrophil Count 6.1 X10^3/uL (2.0-7.7); Basophil# 0.02 X10^3/uL; Basophil% 0.3 % (0-1); Eosinophil# 0.03 X10^3/uL; Eosinophils% 0.4 % (0-5); Hematocrit 42.3 % (40-54); Hemoglobin 13.6 g/dL (13.0-16.5); Lymphocyte # 0.45 X10^3/ul (0.83-4.51); Lymphocyte % 6.3 % (19-41); Mean Corp Hgb Conc 32.2 g/dL (32-36); Mean Corpuscular Hgb 30.8 pg (27.0-32.0); Mean Corpuscular Volume 95.7 fL (80-94); Mean Platelet Vol. 9.9 fl (6.2-12.0); Monocyte# 0.43 X10^3/uL; Monocyte% 6.1 % (0-10); NRBC Flagged by Analyzer 0 % (0-5); Neutrophil # 6.13 X10^3/uL (2.7-7.7); Neutrophil % 86.3 % (47-70); POSITIVE DIFFERENTIAL YES; Platelet Count 141 K/mm3 (150-450); RBC Distribution Width CV 13.7 % (11.6-14.6); RBC Distribution Width SD 48.5 fl (35.1-43.9); Red Blood Count 4.42 M/mm3 (4.6-6.2); White Blood Count 7.1 K/mm3 (4.4-11.0)
[2020-11-04 15:39] LABS: Differential Indicated SCAN CRITERIA MET
[2020-11-04 15:40] LABS: Anion Gap 7 (5-15); BUN 35 mg/dL (7-18); BUN/Creat Ratio 9.6 RATIO (10-20); Calcium,Total 9.5 mg/dL (8.5-10.1); Chloride 105 mmol/L (98-107); Creatinine, Serum 3.63 mg/dL (0.70-1.30); EST Glomerular Filtration Rate 18 mL/min (>60); Est Glom Filt Rate - Afr Amer 21 mL/min (>60); Estimated Creatinine Clearance 17.27 ml/min; Glucose 116 mg/dL (74-106); Sodium Level 137 mmol/L (136-145)
[2020-11-04] MEDS: Acetaminophen 500 MG Tablet 1000 MG PO (16:29)
[2020-11-04] MEDS: 0.9% Normal Saline 1,000 ML 999 ML IV (16:29)
[2020-11-04 16:46] LABS: International Normalized Ratio 1.1; Partial Thromboplast Time 30.5 Seconds (24.1-36.2); Prothrombin Time (Protime)PT. 13.8 SECONDS (11.7-14.9)
--- NOTE | 2020-11-04 17:28 | HP.PCM.HOS_ITS ---
HPI - General General Date of Admission: 11/04/20 HPI Narrative REBEKAH REID, is a 75 M with a PMH as outlined who was admitted through the ED on 11/04/2020 with a complaint of general debility and cough. He has been getting progressively weaker over the last 24 hours. He denied any fever chills denied any nausea vomiting or diarrhea. Review of systems otherwise negative. Patient has received his Covid vaccinations. Vitals in the ED showed blood pressure of 146/91, respiratory rate of 20 and temperature of 101.1 Fahrenheit with pulse rate of 89. CBC showed hemoglobin of 13.6 with WBC of 7.1 and platelets of 141. Chemistry showed creatinine of 3.63 but was otherwise unrema rkable. Chest x-ray showed no acute cardiopulmonary process. Covid antigen testing was negative and PCR was pending. He has been admitted to be managed for debility and upper respiratory tract infection. [facility] Medical History (Updated 11/04/20 @ 21:43 by Melissa Quintana) Abnormal stress echo BPH (benign prostatic hyperplasia) Chest pain Chronic kidney disease, stage 3 (moderate) Chronic systolic heart failure Claudication Congestive heart failure (CHF) Essential hypertension Former smoker GERD (gastroesophageal reflux disease) Hard of hearing History of tobacco use Hypertension Irregular heart beat Kidney disease Obstructive sleep apnea Prediabetes Shortness of breath Zach's granulomatosis Home Medications fluticasone propionate 2 spray NASAL DAILY PRN 05/28/18 [History Last Taken Unknown] metoprolol tartrate 25 mg PO BID 05/28/18 [History Last Taken 11/04/20 08:00] omeprazole 40 mg capsule,delayed release 40 mg PO DAILY 11/04/18 [History Last Taken 11/04/20 08:00] gabapentin 100 mg capsule 100 mg PO DAILY cap 11/10/18 [History Last Taken 11/04/20 08:00] sodium bicarbonate 1 tab PO TID 12/11/19 [History Last Taken 11/04/20 12:00] azathioprine 100 mg PO DAILY 11/04/20 [History Last Taken 11/04/20 12:00] cholecalciferol (vitamin D3) [Vitamin D3] 25 mcg PO DAILY 11/04/20 [History Last Taken 11/04/20 12:00] clotrimazole [Mycelex] 10 mg MUCOUS MEMBRANE TID 11/04/20 [History Last Taken 11/04/20 12:00] gabapentin 200 mg PO QHS 11/04/20 [History Last Taken 11/03/20 20:00] oxycodone-acetaminophen 1 tab PO Q6H PRN 11/04/20 [History Last Taken 11/04/20 10:00] sulfamethoxazole-trimethoprim 1 tab PO DAILY 11/04/20 [History Last Taken 11/04/20 12:00] Allergy/AdvReac Type Severity Reaction Status Date / Time aspirin AdvReac Severe cannot Verified 11/04/20 13:47 take d/t Zach's Vasculitis Family History Mother CAD (coronary artery disease) Congestive heart failure Father Prostate cancer Lung cancer Brother Colon cancer Sister Colon cancer Surgical History H/O arthroscopy of left knee (1988) History of colonoscopy History of endoscopy (01/02/16) History of left heart catheterization (11/12/18) History of prostate biopsy (01/11/14) History of total right hip arthroplasty (02/05/16) S/P arthroscopic surgery of left knee (1989) Status post biopsy of kidney (12/2013) Social History Smoking Status: Former smoker ROS Review of Systems ROS Unobtainable: Denies due to encephalopathy Constitutional Constitutional: Reports anorexia, chills, fatigue, malaise and weakness; Denies change in weight or fever(s) Eyes Eyes: Denies blurry vision ENT HEENT: Denies dysphagia, hearing loss or nasal discharge Cardiovascular Cardiovascular: Denies chest pain, dyspnea on exertion, lightheadedness or orthopnea Respiratory/Chest Respiratory/Chest: Reports cough, dyspnea, productive cough, shortness of breath at rest and shortness of breath with exertion; Denies excessive phlegm production, hemoptysis or wheezing Gastrointestinal Gastrointestinal: Denies abdominal pain, constipation, diarrhea, dyspepsia, melena, nausea or vomiting Genitourinary Genitourinary: Denies burning urination or dysuria Musculoskeletal Musculoskeletal: Denies arthralgias, joint pain or joint swelling Neurologic Neurologic: Denies confusion, dizziness or focal weakness Psychiatric Psychiatric: Denies anxiety Endocrine Endocrinology: Denies change in body appearance Vital Signs Vital Signs Vital Signs: 11/04/20 13:43 11/04/20 15:12 11/04/20 16:14 Temperature 99.2 F H 99.2 F H Temperature Source Oral Temporal Pulse Rate 89 92 Respiratory Rate 14 20 H Respiratory Pattern Normal Blood Pressure 163/93 H 159/92 H Blood Pressure Mean 116 114 Pulse Ox 96 96 97 Oxygen Delivery Method Room Air Room Air Room Air 11/04/20 16:53 Temperature 101.1 F H Temperature Source Oral Pulse Rate 89 Respiratory Rate 20 H Respiratory Pattern Blood Pressure 146/91 H Blood Pressure Mean 109 Pulse Ox 97 Oxygen Delivery Method Room Air Weight Weight: 209 lb 7.026 oz Body Mass Index (BMI) 31.8 Physical Exam Const alert and oriented x3 General Appearance: cooperative Orientation / Consciousness: lethargic HEENT normocephalic, head/scalp atraumatic, hearing grossly normal bilaterally and moist oral mucous membranes Eyes PERRL, EOMs intact bilaterally and conjunctivae normal Neck no lymphadenopathy, supple, no JVD and no carotid bruits Resp normal respiratory effort, no retractions, no use of accessory muscles and clear to auscultation bilaterally Cardio regular rate, regular rhythm, S1 normal heart sound, S2 normal heart sound and no murmurs GI normal to inspection, nondistended, normoactive bowel sounds, soft to palpation, non-tender and non-distended Extremity normal to inspection and full ROM Peripheral Pulses: Yes pulses 2+ throughout Skin no rashes or lesions noted Neuro oriented x3 Sensorium / Orientation: awake and alert Psych affect normal Results Lab / Micro Data Result Diagrams: 11/05/20 04:31 11/05/20 04:31 Labs: Laboratory Results - last 24 hr 11/04/20 11/04/20 11/04/20 15:08 15:08 15:43 WBC 7.1 RBC 4.42 L Hgb 13.6 Hct 42.3 MCV 95.7 H MCH 30.8 MCHC 32.2 RDW Std Deviation 48.5 H RDW Coeff of Misael 13.7 Plt Count 141 L MPV 9.9 Immature Gran % (Auto) 0.600 Neut % (Auto) 86.3 H Lymph % (Auto) 6.3 L Mcintosh % (Auto) 6.1 Eos % (Auto) 0.4 Baso % (Auto) 0.3 Absolute Neuts (auto) 6.1 Absolute Lymphs (auto) 0.45 L Nucleated RBC % 0 PT INR APTT Sodium 137 Potassium 5.0 Chloride 105 Carbon Dioxide 25.0 Anion Gap 7 BUN 35 H Creatinine 3.63 H Estim Creat Clear Calc 17.27 Est GFR (MDRD) Af Amer 21 L Est GFR (MDRD) Non-Af 18 L BUN/Creatinine Ratio 9.6 L Glucose 116 H Lactic Acid 1.0 Calcium 9.5 11/04/20 16:30 WBC RBC Hgb Hct MCV MCH MCHC RDW Std Deviation RDW Coeff of Misael Plt Count MPV Immature Gran % (Auto) Neut % (Auto) Lymph % (Auto) Mcintosh % (Auto) Eos % (Auto) Baso % (Auto) Absolute Neuts (auto) Absolute Lymphs (auto) Nucleated RBC % PT 13.8 INR 1.1 APTT 30.5 Sodium Potassium Chloride Carbon Dioxide Anion Gap BUN Creatinine Estim Creat Clear Calc Est GFR (MDRD) Af Amer Est GFR (MDRD) Non-Af BUN/Creatinine Ratio Glucose Lactic Acid Calcium Micro: Microbiology 11/04/20 15:17 SARS-CoV-2 Antigen (Rapid) - Final Mucosa - Nose Radiology Impression Chest X-Ray 11/04/20 15:15 IMPRESSION: No radiographic evidence of acute cardiopulmonary disease. at 1615 Reported and signed by: Hadley Melton MD Electronically Signed: Hadley Melton MD at 16:14 EDT Tel , Service support , Assessment & Plan Assessment/Plan (1) Upper respiratory infection, viral: (2) Generalized weakness: PLAN: 75 y/o admitted with a complaint of generalised weakness and cough. #Debility due to URTI * Covid antigen test was negative. Covid PCR pending. * [facility] * Breathing treatments bronchodilators. Tylenol for fever and pain as needed. * Titrate oxygen to maintain saturations above 90%. * check respiratory panel * CXR showed no acute cardiopulmonary process * #Zach's granulomatosis: Stable. On azathioprine and Bactrim daily #Hypertension: On metoprolol DVT prophylaxis: Lovenox CODE STATUS: Full code * Patient and counseled about differences between full code, DNR CCA and DNR CCA. Patient elects to be full code. * Total [id number] time 17 minutes. Charges/Coding Visit Charges Inpatient E&M: 67894 Init Hosp L3 Multi Select Codes Hospitalists' Procedures Procedures: 04681 Advncd Care Plan 30 Min
[2020-11-04 18:32] LABS: Bacteria 0 SEEN /hpf (None Seen); Mucous, Urine 0 SEEN /hpf (<or=2+); Squamous Epithelial Cells - UA 0 SEEN /hpf (0-5); White Blood Cells 0 SEEN /hpf (0-5)
[2020-11-04 18:34] LABS: Color, Urine Yellow (Yellow); Glucose, Dipstick Normal (Normal); Ketone-Dipstick Negative (Negative); Leukocyte Esterase-Dipstick Negative /ul (Negative); Nitrite-Dipstick Negative (Negative); Occult Blood-Urine 25 /ul (Negative); Protein-Dipstick 100 mg/dl (Negative); Urine Bilirubin Dipstick Negative (Negative); Urine Clarity Clear (Clear); Urine Urobilinogen Normal (Normal)
[2020-11-04 18:39] LABS: Red Blood Cells-Urine 0-5 SEEN /hpf (0-5)
[2020-11-04] MEDS: Metoprolol Tartrate 25 MG Tablet PO (22:33)
[2020-11-04] MEDS: Clotrimazole 10 MG Troche MUCOUS MEM (22:33)
[2020-11-04] MEDS: Gabapentin 100 MG Capsule 200 MG PO (22:33)
[2020-11-04] MEDS: Sodium Bicarbonate 650 MG Tablet PO (22:33)
[2020-11-04] MEDS: 0.9% Normal Saline 1,000 ML 125 ML IV (22:34)
[2020-11-04] MEDS: Acetaminophen 325 MG Tablet 650 MG PO (22:36)
[2020-11-04] MEDS: guaiFENesin 10 ML UDC (200MG/10ML) 20 ML PO (22:37)
[2020-11-04] MEDS: Albuterol 2.5 MG/3 ML VIAL.NEB. INHALATION (22:52)
[2020-11-05] VITALS (11 sets, daily range): BP systolic 142–151; BP diastolic 80–98; PULSE 75–101; RESP 18; TEMP 36.8–37.2; O2SAT 97–98
[2020-11-05] MEDS: oxyCODONE 5 MG Tablet PO (03:28)
[2020-11-05 04:57] LABS: Absolute Lymphocyte Count 0.39 X10^3/uL (0.83-4.51); Absolute Neutrophil Count 4.1 X10^3/uL (2.0-7.7); Basophil# 0.03 X10^3/uL; Basophil% 0.6 % (0-1); Eosinophil# 0.05 X10^3/uL; Hematocrit 35.4 % (40-54); Hemoglobin 11.6 g/dL (13.0-16.5); Lymphocyte # 0.39 X10^3/ul (0.83-4.51); Lymphocyte % 7.8 % (19-41); Mean Corp Hgb Conc 32.8 g/dL (32-36); Mean Corpuscular Volume 94.7 fL (80-94); Mean Platelet Vol. 9.3 fl (6.2-12.0); NRBC Flagged by Analyzer 0 % (0-5); Neutrophil # 4.13 X10^3/uL (2.7-7.7); Neutrophil % 82.2 % (47-70); POSITIVE DIFFERENTIAL YES; Platelet Count 101 K/mm3 (150-450); RBC Distribution Width CV 13.6 % (11.6-14.6); RBC Distribution Width SD 47.8 fl (35.1-43.9); Red Blood Count 3.74 M/mm3 (4.6-6.2)
[2020-11-05 05:04] LABS: Differential Indicated SCAN CRITERIA MET
[2020-11-05 05:28] LABS: Anion Gap 7 (5-15); BUN 31 mg/dL (7-18); BUN/Creat Ratio 10.1 RATIO (10-20); Calcium,Total 8.8 mg/dL (8.5-10.1); Chloride 108 mmol/L (98-107); Creatinine, Serum 3.06 mg/dL (0.70-1.30); EST Glomerular Filtration Rate 21 mL/min (>60); Est Glom Filt Rate - Afr Amer 26 mL/min (>60); Estimated Creatinine Clearance 20.49 ml/min; Glucose 98 mg/dL (74-106); Potassium 4.4 mmol/L (3.5-5.1); Sodium Level 139 mmol/L (136-145)
[2020-11-05] MEDS: Sodium Bicarbonate 650 MG Tablet PO ×3 (06:20→21:31)
[2020-11-05] MEDS: Clotrimazole 10 MG Troche MUCOUS MEM ×3 (06:20→21:31)
[2020-11-05] MEDS: 0.9% Normal Saline 1,000 ML 125 ML IV (06:20)
[2020-11-05] MEDS: Gabapentin 100 MG Capsule PO (08:14)
[2020-11-05] MEDS: Cholecalciferol (VIT D3) 25 MCG TABLET (1,000 UNITS) PO (08:14)
[2020-11-05] MEDS: azaTHIOprine 50 MG Tablet 100 MG PO (08:14)
[2020-11-05] MEDS: Pantoprazole Sodium 40 MG Tablet PO (08:14)
[2020-11-05] MEDS: Smz/Tmp Ds Tablet 0.5 TABLET PO (08:14)
[2020-11-05] MEDS: Metoprolol Tartrate 25 MG Tablet PO ×2 (08:14→21:31)
--- NOTE | 2020-11-05 13:31 | PCM.PN.HOSP ---
Subjective Subjective Patient seen and examined. He still complains of coughing and feeling weak but thinks he is improving relative to yesterday when he presented. He denied any fever or chills or shortness of breath and review of systems otherwise negative. He has remained hemodynamically stable. Objective Data Objective Data Vital Signs: Vital Signs Temp Pulse Resp BP Pulse Ox 98.5 F 91 18 147/80 H 98 11/05/20 09:07 11/05/20 09:07 11/05/20 09:07 11/05/20 09:07 11/05/20 09:07 Oxygen Delivery Method Room Air Weight: 208 lb 1.862 oz Body Mass Index (BMI) 31.6 Intake & Output: Intake and Output for Last 24 Hours 11/03/20 11/04/20 11/05/20 23:59 23:59 23:59 Intake Total 1240 / 1240 1320.83 / 1320.83 Output Total 250 / 250 400 / 400 Balance 990 / 990 920.83 / 920.83 Lab / Micro Data Result Diagrams: 11/05/20 04:31 11/05/20 04:31 Labs: Laboratory Results - last 24 hr 11/04/20 11/04/20 11/04/20 15:08 15:08 15:43 WBC 7.1 RBC 4.42 L Hgb 13.6 Hct 42.3 MCV 95.7 H MCH 30.8 MCHC 32.2 RDW Std Deviation 48.5 H RDW Coeff of Misael 13.7 Plt Count 141 L MPV 9.9 Immature Gran % (Auto) 0.600 Neut % (Auto) 86.3 H Lymph % (Auto) 6.3 L Blanco % (Auto) 6.1 Eos % (Auto) 0.4 Baso % (Auto) 0.3 Absolute Neuts (auto) 6.1 Absolute Lymphs (auto) 0.45 L Nucleated RBC % 0 PT INR APTT Sodium 137 Potassium 5.0 Chloride 105 Carbon Dioxide 25.0 Anion Gap 7 BUN 35 H Creatinine 3.63 H Estim Creat Clear Calc 17.27 Est GFR (MDRD) Af Amer 21 L Est GFR (MDRD) Non-Af 18 L BUN/Creatinine Ratio 9.6 L Glucose 116 H Lactic Acid 1.0 Calcium 9.5 Urine Color Urine Clarity Urine pH Ur Specific [place] Urine Protein Urine Glucose (UA) Urine Ketones Urine Occult Blood Urine Nitrite Urine Bilirubin Urine Urobilinogen Ur Leukocyte Esterase Urine RBC Urine WBC Ur Squamous Epith Cells Urine Bacteria Urine Mucus COVID-19 ([facility]) 11/04/20 11/04/20 11/04/20 16:30 18:25 18:29 WBC RBC Hgb Hct MCV MCH MCHC RDW Std Deviation RDW Coeff of Misael Plt Count MPV Immature Gran % (Auto) Neut % (Auto) Lymph % (Auto) Blanco % (Auto) Eos % (Auto) Baso % (Auto) Absolute Neuts (auto) Absolute Lymphs (auto) Nucleated RBC % PT 13.8 INR 1.1 APTT 30.5 Sodium Potassium Chloride Carbon Dioxide Anion Gap BUN Creatinine Estim Creat Clear Calc Est GFR (MDRD) Af Amer Est GFR (MDRD) Non-Af BUN/Creatinine Ratio Glucose Lactic Acid Calcium Urine Color Yellow Urine Clarity Clear Urine pH 6.0 Ur Specific [place] 1.010 Urine Protein 100 H Urine Glucose (UA) Normal Urine Ketones Negative Urine Occult Blood 25 H Urine Nitrite Negative Urine Bilirubin Negative Urine Urobilinogen Normal Ur Leukocyte Esterase Negative Urine RBC 0-5 SEEN Urine WBC 0 SEEN Ur Squamous Epith Cells 0 SEEN Urine Bacteria 0 SEEN Urine Mucus 0 SEEN COVID-19 ([facility]) Not Detected 11/05/20 11/05/20 04:31 04:31 WBC 5.0 RBC 3.74 L Hgb 11.6 L Hct 35.4 L MCV 94.7 H MCH 31.0 MCHC 32.8 RDW Std Deviation 47.8 H RDW Coeff of Misael 13.6 Plt Count 101 L MPV 9.3 Immature Gran % (Auto) 0.400 Neut % (Auto) 82.2 H Lymph % (Auto) 7.8 L Blanco % (Auto) 8.0 Eos % (Auto) 1.0 Baso % (Auto) 0.6 Absolute Neuts (auto) 4.1 Absolute Lymphs (auto) 0.39 L Nucleated RBC % 0 PT INR APTT Sodium 139 Potassium 4.4 Chloride 108 H Carbon Dioxide 24.0 Anion Gap 7 BUN 31 H Creatinine 3.06 H Estim Creat Clear Calc 20.49 Est GFR (MDRD) Af Amer 26 L Est GFR (MDRD) Non-Af 21 L BUN/Creatinine Ratio 10.1 Glucose 98 Lactic Acid Calcium 8.8 Urine Color Urine Clarity Urine pH Ur Specific [place] Urine Protein Urine Glucose (UA) Urine Ketones Urine Occult Blood Urine Nitrite Urine Bilirubin Urine Urobilinogen Ur Leukocyte Esterase Urine RBC Urine WBC Ur Squamous Epith Cells Urine Bacteria Urine Mucus COVID-19 ([facility]) Micro: Microbiology 11/04/20 18:29 Urine, Clean Catch Urine Culture - Preliminary Culture exhibits no growth. 11/04/20 18:25 Mucosa - Nose Respiratory Panel (PCR) - Final Rhinovirus 11/04/20 15:17 Mucosa - Nose SARS-CoV-2 Antigen (Rapid) - Final Radiography Diagnostic Testing: Radiology Impression Chest X-Ray 11/04/20 15:15 IMPRESSION: No radiographic evidence of acute cardiopulmonary disease. at 1615 Reported and signed by: Hadley Melton MD Electronically Signed: Hadley Melton MD at 16:14 EDT Tel , Service support , Rhythm Strip Rhythm Strip: Sinus Rhythm Rate: 92 Ectopy: PVC(s) Physical Exam Const alert, oriented x3 and no apparent distress General Appearance: cooperative Exam Limitations: no limitations HEENT normocephalic, head/scalp atraumatic, hearing grossly normal bilaterally and moist oral mucous membranes Head and Scalp: normocephalic Eyes PERRL, EOMs intact bilaterally and conjunctivae normal Neck no lymphadenopathy, supple, no JVD and no carotid bruits Resp normal respiratory effort, no retractions, no use of accessory muscles and clear to auscultation bilaterally Cardio regular rate, regular rhythm, S1 normal heart sound, S2 normal heart sound and no murmurs GI normal to inspection, nondistended, normoactive bowel sounds, soft to palpation, non-tender and non-distended Extremity normal to inspection and full ROM Peripheral Pulses: Yes pulses 2+ throughout Skin no rashes or lesions noted Neuro oriented x3 Sensorium / Orientation: awake and alert Psych affect normal Assessment & Plan Assessment/Plan (1) Upper respiratory infection, viral: (2) Generalized weakness: PLAN: #Debility due to URTI Covid PCR was negative respiratory panel positive for Rhinovirus Admit to [facility] telemetry Breathing treatments bronchodilators. Tylenol for fever and pain as needed. Titrate oxygen to maintain saturations above 90%. CXR showed no acute cardiopulmonary process #URTI due to Rhinovirus infection: as above #Zach's granulomatosis: Stable. On azathioprine and Bactrim daily #Hypertension: On metoprolol DVT prophylaxis: Lovenox Disposition: for likely DC home tomorrow, patient wants to stay one more day. CODE STATUS: Full code Charges/Coding Visit Charges Inpatient E&M: 58595 Subs Hosp L2
[2020-11-05] MEDS: guaiFENesin 10 ML UDC (200MG/10ML) 20 ML PO ×2 (13:55→21:30)
[2020-11-05] MEDS: Gabapentin 100 MG Capsule 200 MG PO (21:30)
[2020-11-05] MEDS: Calcium Carbonate 500 MG Tablet 1000 MG PO (21:30)
[2020-11-06 02:48] VITALS: BP 159/94; PULSE 74; RESP 18; TEMP 36.8; O2SAT 96
[2020-11-06 03:02] VITALS: PULSE 76
[2020-11-06] MEDS: Clotrimazole 10 MG Troche MUCOUS MEM (06:32)
[2020-11-06] MEDS: guaiFENesin 10 ML UDC (200MG/10ML) 20 ML PO (06:32)
[2020-11-06] MEDS: Sodium Bicarbonate 650 MG Tablet PO ×2 (06:32→14:10)
[2020-11-06 07:03] LABS: Absolute Lymphocyte Count 0.77 X10^3/uL (0.83-4.51); Absolute Neutrophil Count 3.1 X10^3/uL (2.0-7.7); Basophil# 0.03 X10^3/uL; Basophil% 0.6 % (0-1); Eosinophil# 0.19 X10^3/uL; Eosinophils% 4.1 % (0-5); Hematocrit 39.6 % (40-54); Hemoglobin 12.7 g/dL (13.0-16.5); Lymphocyte # 0.77 X10^3/ul (0.83-4.51); Lymphocyte % 16.6 % (19-41); Mean Corp Hgb Conc 32.1 g/dL (32-36); Mean Corpuscular Hgb 30.5 pg (27.0-32.0); Mean Corpuscular Volume 95.2 fL (80-94); Mean Platelet Vol. 9.5 fl (6.2-12.0); Monocyte# 0.55 X10^3/uL; Monocyte% 11.9 % (0-10); NRBC Flagged by Analyzer 0 % (0-5); Neutrophil # 3.09 X10^3/uL (2.7-7.7); Neutrophil % 66.6 % (47-70); Platelet Count 118 K/mm3 (150-450); RBC Distribution Width CV 13.4 % (11.6-14.6); RBC Distribution Width SD 47.7 fl (35.1-43.9); Red Blood Count 4.16 M/mm3 (4.6-6.2); White Blood Count 4.6 K/mm3 (4.4-11.0)
[2020-11-06 07:27] LABS: Anion Gap 8 (5-15); BUN 32 mg/dL (7-18); BUN/Creat Ratio 11.1 RATIO (10-20); Calcium,Total 9.5 mg/dL (8.5-10.1); Chloride 104 mmol/L (98-107); Creatinine, Serum 2.88 mg/dL (0.70-1.30); EST Glomerular Filtration Rate 23 mL/min (>60); Est Glom Filt Rate - Afr Amer 28 mL/min (>60); Estimated Creatinine Clearance 21.77 ml/min; Glucose 94 mg/dL (74-106); Potassium 4.2 mmol/L (3.5-5.1); Sodium Level 137 mmol/L (136-145)
[2020-11-06 08:53] VITALS: BP 148/99; PULSE 89; RESP 16; TEMP 36.8; O2SAT 95
[2020-11-06 09:05] VITALS: PULSE 89
[2020-11-06] MEDS: Pantoprazole Sodium 40 MG Tablet PO (09:05)
[2020-11-06] MEDS: Smz/Tmp Ds Tablet 0.5 TABLET PO (09:05)
[2020-11-06] MEDS: Cholecalciferol (VIT D3) 25 MCG TABLET (1,000 UNITS) PO (09:05)
[2020-11-06] MEDS: Gabapentin 100 MG Capsule PO (09:05)
[2020-11-06] MEDS: Metoprolol Tartrate 25 MG Tablet PO (09:05)
[2020-11-06] MEDS: azaTHIOprine 50 MG Tablet 100 MG PO (09:06)
--- NOTE | 2020-11-06 11:20 | CASEMGMT ---
SEBAS ARRIOLA Assessment: Face to Face with pt for initial transition planning/care coordination assessment. SEBAS ARRIOLA introduced self and role at [facility], pt voices understanding and consents to assessment. Pt is A/O x4 and answers all questions appropriately at this time. Pt in no distress and is at bedside. Care providers, pharmacy, and demographics verified/updated. 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 His DPOA is his daughter Leonarda Rosario. LNOK: Kaley Burton, ; Leonarda Rosario, daughter Living Arrangements: Pt lives in a double wide with 3 steps to enter with rail with his . Pt reports being I in ADL's and denies concerns at home. Transportation: Pt drives as well as his . Denies concerns with transportation. DME/HHC/SNF: Pt has a straight cane at home. Pt reports having HHC in the past but is unsure of the agency. Pt denies SNF stays. Pt aware of the recommendation of a FWW and further therapy by therapy. Pt is agreeable to the FWW. Pt provided list of local in network DME companies. Pt chose [facility]. Pt also provided a list of HHC providers including quality and resource use data and consistent with the patient?s preferred geographic region, medical needs, and insurance network. Pt states that he feels that he is at his baseline. He states he feels therapy would be a waste of their time and mine. Pt very kind when expressing this. 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 Pt is aware that if he changes his mind, he can contact his PCP to order. Script for FWW signed and faxed to [facility], spoke to Lina with confirmation of receipt. Pt states no concerns with going home at time of dc. Pt states no further concerns/needs. CM to follow. Advised pt to ask CM if any further question/concerns/needs arise, voices understanding. Pt Goal: Home Plan: Home with family support.
--- NOTE | 2020-11-06 11:47 | PCM.DC ---
Discharge Instructions Diet Discharge Diet: Low fat / Low cholesterol Activity Discharge Activity: Return to Normal Activity Dressing / Incision Call your doctor if you observe: Fever of 101 or Higher, Shortness of breath, Dizziness, Swelling in the ankles, Chest pain and Increased palpitations (irregular heartbeat) Follow Up Care Test Results: Test results from this visit will be discussed in further detail at your follow-up appointment, if applicable. Discharge Plan Admission Admit Date/Time: 11/04/20 17:45 Attending Provider: Cornel Martinez Instructions Patient Instructions: ED Chest Pain, Noncardiac Discharge Orders/Prescriptions Prescriptions: Continued omeprazole 40 mg capsule,delayed release(DR/EC) 40 mg PO DAILY RF: 0 fluticasone propionate 1 SPRAY spray,suspension 2 spray NASAL DAILY PRN (Reason: allergies) RF: 0 metoprolol tartrate 25 MG tablet 25 mg PO BID RF: 0 gabapentin 100 mg capsule 100 mg PO DAILY RF: 0 sodium bicarbonate 650 mg tablet 1 tab PO TID RF: 0 clotrimazole 10 mg Jade 10 mg MUCOUS MEMBRANE TID RF: 0 sulfamethoxazole-trimethoprim 400-80 mg tablet 1 tab PO DAILY RF: 0 azathioprine 50 mg tablet 100 mg PO DAILY RF: 0 oxycodone-acetaminophen 5-325 mg tablet 1 tab PO Q6H PRN (Reason: Pain) RF: 0 gabapentin 100 mg Capsule 200 mg PO QHS RF: 0 cholecalciferol (vitamin D3) [Vitamin D3] 25 mcg (1,000 unit) Tablet 25 mcg PO DAILY RF: 0 Referrals / Follow Up: RAHEL MATA [Other] RAHEL MATA [Other] Disposition Disposition (needs filled in before D/C Order can be placed): Home, self care
--- NOTE | 2020-11-06 12:26 | PHA.DC.MR ---
Pharmacy Service has performed discharge medication reconciliation for this patient. The patient's discharge medication list was reviewed for discrepancies and discrepancies were resolved. Home Medications fluticasone propionate 2 spray NASAL DAILY PRN 05/28/18 metoprolol tartrate 25 mg PO BID 05/28/18 omeprazole 40 mg capsule,delayed release 40 mg PO DAILY 11/04/18 gabapentin 100 mg capsule 100 mg PO DAILY cap 11/10/18 sodium bicarbonate 1 tab PO TID 12/11/19 azathioprine 100 mg PO DAILY 11/04/20 cholecalciferol (vitamin D3) [Vitamin D3] 25 mcg PO DAILY 11/04/20 clotrimazole 10 mg MUCOUS MEMBRANE TID 11/04/20 gabapentin 200 mg PO QHS 11/04/20 oxycodone-acetaminophen 1 tab PO Q6H PRN 11/04/20 sulfamethoxazole-trimethoprim 1 tab PO DAILY 11/04/20
[2020-11-06 14:03] VITALS: BP 143/98; PULSE 70; RESP 18; TEMP 36.5; O2SAT 96
--- NOTE | 2020-11-06 15:04 | CASEMGMT ---
Noted pt had been dc'd prior to [employer] delivering walker. TC to pt cell phone and spoke with patient. Pt to return to hospital and came to floor to leaf size picker walker.
--- NOTE | 2020-11-06 15:32 | CASEMGMT ---
RN CM: Pt with a LACE strata of 3 indicating pt at risk for readmission. Palliative care screening tool completed and pt does not meet criteria for palliative care at this time. Aguilar Carrion RN CM
--- NOTE | 2020-11-06 16:03 | PCM.DC.SUM ---
Providers Date of Admission: 11/04/20 Primary Care Physician: RAHEL MATA Reason For Visit: URTI, DEBILITY Diagnosis Discharge Diagnosis (1) Upper respiratory infection, viral: Status: Acute Code(s): J06.9 - Acute upper respiratory infection, unspecified (2) Generalized weakness: Status: Acute Code(s): R53.1 - Weakness Medications at Discharge Home Medications fluticasone propionate 2 spray NASAL DAILY PRN 05/28/18 metoprolol tartrate 25 mg PO BID 05/28/18 omeprazole 40 mg capsule,delayed release 40 mg PO DAILY 11/04/18 gabapentin 100 mg capsule 100 mg PO DAILY cap 11/10/18 sodium bicarbonate 1 tab PO TID 12/11/19 azathioprine 100 mg PO DAILY 11/04/20 cholecalciferol (vitamin D3) [Vitamin D3] 25 mcg PO DAILY 11/04/20 clotrimazole 10 mg MUCOUS MEMBRANE TID 11/04/20 gabapentin 200 mg PO QHS 11/04/20 oxycodone-acetaminophen 1 tab PO Q6H PRN 11/04/20 sulfamethoxazole-trimethoprim 1 tab PO DAILY 11/04/20 Hospital Course Operations None Procedures None Summary of Care Provided Minutes Spent on Discharge: 37 Hospital Course: Per HPI: REBEKAH REID, is a 75 M with a PMH as outlined who was admitted through the ED on 11/04/2020 with a complaint of general debility and cough. He has been getting progressively weaker over the last 24 hours. He denied any fever chills denied any nausea vomiting or diarrhea. Review of systems otherwise negative. Patient has received his Covid vaccinations. Vitals in the ED showed blood pressure of 146/91, respiratory rate of 20 and temperature of 101.1 Fahrenheit with pulse rate of 89. CBC showed hemoglobin of 13.6 with WBC of 7.1 and platelets of 141. Chemistry showed creatinine of 3.63 but was otherwise unremarkable. Chest x-ray showed no acute cardiopulmonary process. Covid antigen testing was negative and PCR was pending. He has been admitted to be managed for debility and upper respiratory tract infection. Hospital Course: 1. Debility secondary to a [id number]-old male presented to the hospital with increased weakness over the last 24 hours prior to admission. He denies any fevers or chills and has been vaccinated for Covid. His Covid PCR was negative but he did test positive for rhinovirus. He is on room air and ambulating well though still weak, PT/OT evaluated him and felt he needed additional therapy however he prefers to go home. His agrees that he should come home with her and is willing to take care of him. We did discuss with him the potential advantages of having home PT however he did not want that either. I did discuss with him the plan for discharge today and he expressed understanding of the risk and benefits of going home and still wants to go home today. 2. Hypertension, Zach's granulomatosis her chronic medical conditions which complicate his care. His home medications were continued where appropriate. Physical Exam Const alert, oriented x3 and no apparent distress General Appearance: cooperative HEENT normocephalic and moist oral mucous membranes Eyes PERRL, EOMs intact bilaterally and conjunctivae normal Neck supple and no JVD Resp normal respiratory effort, no retractions, no use of accessory muscles and clear to auscultation bilaterally Auscultation: Negative for crackles, rales, rhonchi or wheezes Cardio regular rate, regular rhythm, S1 normal heart sound, S2 normal heart sound and no murmurs GI soft to palpation, non-tender and non-distended; Negative for hepatosplenomegaly Extremity no clubbing, cyanosis or edema Skin no rashes or lesions noted Neuro no focal motor deficits and no sensory deficits noted Psych affect normal Appearance: appropriate Weight / BMI Weight Weight: 208 lb 1.862 oz Body Mass Index (BMI) 31.6 ABG / Lab / Microbiology Data Result Diagrams: 11/06/20 06:35 11/06/20 06:35 Laboratory: Laboratory Results - last 24 hr 11/06/20 11/06/20 06:35 06:35 WBC 4.6 RBC 4.16 L Hgb 12.7 L Hct 39.6 L MCV 95.2 H MCH 30.5 MCHC 32.1 RDW Std Deviation 47.7 H RDW Coeff of Misael 13.4 Plt Count 118 L MPV 9.5 Immature Gran % (Auto) 0.200 Neut % (Auto) 66.6 Lymph % (Auto) 16.6 L Atkinson % (Auto) 11.9 H Eos % (Auto) 4.1 Baso % (Auto) 0.6 Absolute Neuts (auto) 3.1 Absolute Lymphs (auto) 0.77 L Nucleated RBC % 0 Sodium 137 Potassium 4.2 Chloride 104 Carbon Dioxide 25.0 Anion Gap 8 BUN 32 H Creatinine 2.88 H Estim Creat Clear Calc 21.77 Est GFR (MDRD) Af Amer 28 L Est GFR (MDRD) Non-Af 23 L BUN/Creatinine Ratio 11.1 Glucose 94 Calcium 9.5 Microbiology: Microbiology 11/04/20 18:29 Urine Culture - Final Urine, Clean Catch Mixed Gram Positive Organisms Microbiology 11/04/20 18:29 Urine, Clean Catch Urine Culture - Final Mixed Gram Positive Organisms 11/04/20 18:25 Mucosa - Nose Respiratory Panel (PCR) - Final Rhinovirus 11/04/20 15:17 Mucosa - Nose SARS-CoV-2 Antigen (Rapid) - Final D/C Instructions Discharge Diet: Low fat / Low cholesterol Call your doctor if you observe: Fever of 101 or Higher, Shortness of breath, Dizziness, Swelling in the ankles, Chest pain and Increased palpitations (irregular heartbeat) Meaningful Use Info Meaningful Use Diagnoses (Choose all that apply): None applicable Discharge Plan Admission Admit Date/Time: 11/04/20 17:45 Attending Provider: Cornel Martinez Instructions Patient Instructions: ED Chest Pain, Noncardiac Discharge Orders/Prescriptions Prescriptions: Continued omeprazole 40 mg capsule,delayed release(DR/EC) 40 mg PO DAILY RF: 0 fluticasone propionate 1 SPRAY spray,suspension 2 spray NASAL DAILY PRN (Reason: allergies) RF: 0 metoprolol tartrate 25 MG tablet 25 mg PO BID RF: 0 gabapentin 100 mg capsule 100 mg PO DAILY RF: 0 sodium bicarbonate 650 mg tablet 1 tab PO TID RF: 0 clotrimazole 10 mg Jade 10 mg MUCOUS MEMBRANE TID RF: 0 sulfamethoxazole-trimethoprim 400-80 mg tablet 1 tab PO DAILY RF: 0 azathioprine 50 mg tablet 100 mg PO DAILY RF: 0 oxycodone-acetaminophen 5-325 mg tablet 1 tab PO Q6H PRN (Reason: Pain) RF: 0 gabapentin 100 mg Capsule 200 mg PO QHS RF: 0 cholecalciferol (vitamin D3) [Vitamin D3] 25 mcg (1,000 unit) Tablet 25 mcg PO DAILY RF: 0 Referrals / Follow Up: RAHEL MATA [Other] RAHEL MATA [Other] Disposition Disposition (needs filled in before D/C Order can be placed): Home, self care Charges/Coding Visit Charges OBSV E&M: 93676 Observation care discharge
== END 2020-11-06 14:33 | disposition home or self-care (01) ==
LOC: ED 17:31 → MS3 17:52
PROVIDERS: Admitting Provider Student in an Organized Health Care Education/Training Program; Emergency Provider Emergency Medicine; Visit Provider Family Medicine
DX: J06.9 Acute upper respiratory infection, unspecified (principal); R53.1 Weakness; I13.0 Hypertensive heart and chronic kidney disease with heart failure and stage 1 through stage 4 chronic kidney disease, or unspecified chronic kidney disease; I50.22 Chronic systolic (congestive) heart failure; N18.30 Chronic kidney disease, stage 3 unspecified; N40.0 Benign prostatic hyperplasia without lower urinary tract symptoms; G47.33 Obstructive sleep apnea (adult) (pediatric); R73.03 Prediabetes; M31.30 Wegener's granulomatosis without renal involvement; K21.9 Gastro-esophageal reflux disease without esophagitis; Z87.891 Personal history of nicotine dependence; Z79.899 Other long term (current) drug therapy
CPT/HCPCS: 36415; 71045; 80048; 81001; 83605; 85025; 85610; 85730; 87040; 87086; 87088; 87426; 87633; 87635; 93005; 94640; 96360; 96361; 97110; 97162; 97165; 97530; 97535; 97802; 99218; 99285; J7030; U0005; A4216; G0378; U0003

== ENCOUNTER 2021-02-09 17:19 | Emergency (ER) | payer MEDICARE, OTHER, SELFPAY ==
[2021-02-09 17:19] VITALS: BP 143/99; PULSE 83; RESP 18; TEMP 36.7; O2SAT 97; BMI 34.2
--- NOTE | 2021-02-09 19:51 | EKG12_ITS ---
Test Reason : DYSRHYTHMIA Blood Pressure : / mmHG Vent. Rate : 068 BPM Atrial Rate : 068 BPM P-R Int : 168 ms QRS Dur : 074 ms QT Int : 386 ms P-R-T Axes : 046 010 038 degrees QTc Int : 410 ms Sinus rhythm with occasional Premature ventricular complexes Otherwise normal ECG Confirmed by KEMAL SUMMERS, LUIGI ([id number]), non linear editor [facility] ([id number]) on 02/12/2021 11:37:51 AM Referred By: WARREN Confirmed By:LUIGI SOMMER MD
--- NOTE | 2021-02-09 19:51 | EDS_ITS ---
HPI History of Present Illness Chief Complaint: Weakness Detail of Chief Complaint: Generalized weakness that started today Informant: patient Narrative Narrative: Patient states that he just has no energy and has had a low-grade temp at home. Patient denies cough or sore throat. 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 Patient denies any dysuria. Patient has had a Covid vaccine. Patient denies any chest pain. He denies nausea or vomiting or diarrhea. Patient denies any blood in the stool or black tarry stool. Patient states he had similar episodes like this in the past and no etiology has been found. Prior similar symptoms: Yes [facility] Medical History (Updated 02/09/21 @ 22:[address] Isela Pendleton, DO) Abnormal stress echo BPH (benign prostatic hyperplasia) Chest pain Chronic kidney disease, stage 3 (moderate) Chronic systolic heart failure Claudication Congestive heart failure (CHF) Essential hypertension Former smoker GERD (gastroesophageal reflux disease) Hard of hearing History of tobacco use Hypertension Irregular heart beat Kidney disease Obstructive sleep apnea Prediabetes Shortness of breath Zach's granulomatosis Home Medications fluticasone propionate 2 spray NASAL DAILY PRN 05/28/18 [History Last Taken Unknown] metoprolol tartrate 25 mg PO BID 05/28/18 [History Last Taken 11/04/20 08:00] omeprazole 40 mg capsule,delayed release 40 mg PO DAILY 11/04/18 [History Last Taken 11/04/20 08:00] gabapentin 100 mg capsule 100 mg PO DAILY cap 11/10/18 [History Last Taken 11/04/20 08:00] sodium bicarbonate 1 tab PO TID 12/11/19 [History Last Taken 11/04/20 12:00] azathioprine 100 mg PO DAILY 11/04/20 [History Last Taken 11/04/20 12:00] cholecalciferol (vitamin D3) [Vitamin D3] 25 mcg PO DAILY 11/04/20 [History Last Taken 11/04/20 12:00] clotrimazole 10 mg MUCOUS MEMBRANE TID 11/04/20 [History Last Taken 11/04/20 12:00] gabapentin 200 mg PO QHS 11/04/20 [History Last Taken 11/03/20 20:00] oxycodone-acetaminophen 1 tab PO Q6H PRN 11/04/20 [History Last Taken 11/04/20 10:00] sulfamethoxazole-trimethoprim 1 tab PO DAILY 11/04/20 [History Last Taken 11/04/20 12:00] Allergy/AdvReac Type Severity Reaction Status Date / Time aspirin AdvReac Severe cannot Verified 02/09/21 17:21 take d/t Zach's Vasculitis Family History Mother CAD (coronary artery disease) Congestive heart failure Father Prostate cancer Lung cancer Brother Colon cancer Sister Colon cancer Surgical History H/O arthroscopy of left knee (1988) History of colonoscopy History of endoscopy (01/02/16) History of left heart catheterization (11/12/18) History of prostate biopsy (01/11/14) History of total right hip arthroplasty (02/05/16) S/P arthroscopic surgery of left knee (1989) Status post biopsy of kidney (12/2013) Social History Smoking Status: Former smoker ROS ROS ED ROS Narrative Generalized weakness Constitutional Constitutional ED: Reports systems reviewed and no addt'l complaints, except as documented, chills, fever(s) and sweats; Denies body ache(s) or change in weight Eyes Eyes: Denies acute decrease in peripheral vision, change in vision, double vision or loss of vision ENT ENT ED: Reports none; Denies ear pain, lip swelling, loss taste/smell, neck pain, otalgia or sore throat Cardiovascular Cardiovascular: Reports none; Denies abdominal pain, chest pain with activity, leg edema, lightheadedness, palpitations, rapid heart rate or syncope Respiratory/Chest Respiratory/Chest: Reports none; Denies change in mental status, dry cough, dyspnea, hemoptysis, shortness of breath at rest or shortness of breath with exertion Gastrointestinal Gastrointestinal: Reports none; Denies abdominal pain, change in stool character, diarrhea, hematemesis, hematochezia, melena, rectal bleeding or vomiting Genitourinary Genitourinary ED: Reports none; Denies abdominal discomfort, anuria, dysuria, genital pain or polyuria Musculoskeletal Musculoskeletal: Reports none; Denies arthralgias, back pain, difficulty walking, extremity pain, muscle weakness or myalgias Integumentary Reports none; Denies abscess or rash Neurologic Neurologic: Reports none; Denies abnormal gait, confusion, focal weakness, frequent falls, headache(s), loss of vision, numbness, paresthesias, radicular pain, vertigo or weakness Psychiatric Psychiatric: Reports systems reviewed and no addt'l complaints, except as documented and none; Denies behavioral changes, confusion, difficulty concentrating, hallucinations, suicidal ideation, tactile hallucinations or visual hallucinations Endocrine Endocrinology: Denies none, cold intolerance, excessive sweating, fatigue or heat intolerance Hematologic/Lymphatic Hematologic/Lymphatic: Reports none; Denies anemia, easy bleeding or easy bruising Allergic/Immunologic Allergic/Immunologic ED: Denies as per HPI, none, lip swelling, mouth swelling, throat swelling, tongue swelling or hives EXAM Physical Exam Const Vital Signs: 02/09/21 17:19 02/09/21 20:29 02/09/21 21:51 Temperature 98.1 F 98.5 F Temperature Source Temporal Oral Pulse Rate 83 66 Respiratory Rate 18 16 Respiratory Effort Normal Non-Labored Respiratory Pattern Normal Blood Pressure 143/99 H 153/96 H Blood Pressure Mean 113 115 Pulse Ox 97 97 Oxygen Delivery Method Room Air Room Air Positive well nourished and well developed General Appearance ED: well developed and NAD HEENT Reports TM's clear and moist mucous membranes normocephalic and atraumatic; Negative for trauma or tenderness Tympanic Membrane ED: Yes TM's clear Eyes PERRL and EOMs intact bilaterally General Eye ED: Negative for pale conjunctiva or scleral icterus Neck no lymphadenopathy, supple and no JVD General: Negative for tenderness Chest Wall inspection of chest normal and palpation of chest normal Chest: Negative for tenderness Resp normal respiratory effort and clear to auscultation bilaterally Effort and Inspection: Negative for respiratory distress or pain with movement Auscultation: Negative for rhonchi, wheezes or diminished lung sounds Cardio regular rate, regular rhythm, S1 normal heart sound, S2 normal heart sound and no murmurs Peripheral Pulses: pulses 2+ throughout GI normal to inspection, nondistended, normoactive bowel sounds, soft to palpation, non-tender, non-distended and no masses Back/Spine no CVA tenderness and no thoracic nor lumbar tenderness Extremity normal to inspection General Extremety ED: Negative for edema General Extremity: Negative for edema Neuro oriented x3, CN's II-XII intact bilaterally, no sensory deficits noted and gait normal Sensorium / Orientation: awake, alert, oriented to person, oriented to place and oriented to time Motor Exam: strength 5/5 throughout and strength abnormal Psych mental status grossly normal Skin no rashes or lesions noted and no wounds MDM MDM MDM Narrative Medical decision making narrative: IV line established on arrival. Patient had an IV line established he was given IV fluids. Blood cultures ordered and will be pending. At this point etiology of his symptoms are unclear. Patient looks well and actually states that he feels much better. He will be discharged to home with instructions to follow-up with primary care physician in 3 to 5 days. Lab Data Attestation: I reviewed the patient's lab results. Labs: Laboratory Results - last 24 hr 02/09/21 02/09/21 02/09/21 20:20 20:20 20:20 WBC 8.6 RBC 4.30 L Hgb 13.3 Hct 40.8 MCV 94.9 H MCH 30.9 MCHC 32.6 RDW Std Deviation 46.3 H RDW Coeff of Misael 13.2 Plt Count 138 L MPV 9.5 Immature Gran % (Auto) 0.200 Neut % (Auto) 79.7 H Lymph % (Auto) 12.1 L [place] % (Auto) 6.9 Eos % (Auto) 0.5 Baso % (Auto) 0.6 Absolute Neuts (auto) 6.9 Absolute Lymphs (auto) 1.04 Nucleated RBC % 0 Sodium 135 L Potassium 4.7 Chloride 107 Carbon Dioxide 27.0 Anion Gap 1 L BUN 38 H Creatinine 3.24 H Estim Creat Clear Calc 18.05 Est GFR (MDRD) Af Amer 24 L Est GFR (MDRD) Non-Af 20 L BUN/Creatinine Ratio 11.7 Glucose 103 Lactic Acid 1.0 Calcium 9.3 Troponin I High Sens 7 Urine Color Urine Clarity Urine pH Ur Specific Butler Urine Protein Urine Glucose (UA) Urine Ketones Urine Occult Blood Urine Nitrite Urine Bilirubin Urine Urobilinogen Ur Leukocyte Esterase Urine RBC Urine WBC Ur Squamous Epith Cells Urine Bacteria Urine Mucus 02/09/21 21:40 WBC RBC Hgb Hct MCV MCH MCHC RDW Std Deviation RDW Coeff of Misael Plt Count MPV Immature Gran % (Auto) Neut % (Auto) Lymph % (Auto) [place] % (Auto) Eos % (Auto) Baso % (Auto) Absolute Neuts (auto) Absolute Lymphs (auto) Nucleated RBC % Sodium Potassium Chloride Carbon Dioxide Anion Gap BUN Creatinine Estim Creat Clear Calc Est GFR (MDRD) Af Amer Est GFR (MDRD) Non-Af BUN/Creatinine Ratio Glucose Lactic Acid Calcium Troponin I High Sens Urine Color Yellow Urine Clarity Clear Urine pH 7.0 Ur Specific Butler 1.010 Urine Protein 100 H Urine Glucose (UA) Normal Urine Ketones Negative Urine Occult Blood 10 H Urine Nitrite Negative Urine Bilirubin Negative Urine Urobilinogen Normal Ur Leukocyte Esterase Negative Urine RBC 0-5 SEEN Urine WBC 0 SEEN Ur Squamous Epith Cells 0-5 SEEN Urine Bacteria 0 SEEN Urine Mucus 0 SEEN Radiography Chest X-Ray - ED: 1 View Diagnostic Testing: Radiology Impression Chest X-Ray 02/09/21 20:55 IMPRESSION: No acute radiographic abnormalities. Electronically Signed: Michael Valentine MD at 21:53 EDT Tel , Service support , 1 view chest x-ray obtained interpreted by myself as no acute disease process. Radiology in agreement. EKG Initial EKG: Attestation: I personally reviewed and interpreted this EKG as follows: Comments: Sinus rhythm with a ventricular rate of 68 bpm with occasional PVCs. Discharge Plan Triage Chief Complaint: Weakness ED Provider: Isela Pendleton Dx/Rx/DC Orders Clinical Impression: Fever, Weakness Instructions: ED FUO Adult, ED Weakness (Uncertain Cause) Prescriptions: No Action omeprazole 40 mg capsule,delayed release(DR/EC) 40 mg PO DAILY RF: 0 fluticasone propionate 1 SPRAY spray,suspension 2 spray NASAL DAILY PRN (Reason: allergies) RF: 0 metoprolol tartrate 25 MG tablet 25 mg PO BID RF: 0 gabapentin 100 mg capsule 100 mg PO DAILY RF: 0 sodium bicarbonate 650 mg tablet 1 tab PO TID RF: 0 clotrimazole 10 mg Jade 10 mg MUCOUS MEMBRANE TID RF: 0 sulfamethoxazole-trimethoprim 400-80 mg tablet 1 tab PO DAILY RF: 0 azathioprine 50 mg tablet 100 mg PO DAILY RF: 0 oxycodone-acetaminophen 5-325 mg tablet 1 tab PO Q6H PRN (Reason: Pain) RF: 0 gabapentin 100 mg Capsule 200 mg PO QHS RF: 0 cholecalciferol (vitamin D3) [Vitamin D3] 25 mcg (1,000 unit) Tablet 25 mcg PO DAILY RF: 0 Referrals: RAHEL MATA [Other] Activity Restrictions/Additional Instructions: Follow-up with primary care physician in 3 to 5 days. Disposition Disposition: Home, Self Care
[2021-02-09 20:38] LABS: Absolute Lymphocyte Count 1.04 X10^3/uL (0.83-4.51); Absolute Neutrophil Count 6.9 X10^3/uL (2.0-7.7); Basophil# 0.05 X10^3/uL; Basophil% 0.6 % (0-1); Eosinophil# 0.04 X10^3/uL; Eosinophils% 0.5 % (0-5); Hematocrit 40.8 % (40-54); Hemoglobin 13.3 g/dL (13.0-16.5); Lymphocyte # 1.04 X10^3/ul (0.83-4.51); Lymphocyte % 12.1 % (19-41); Mean Corp Hgb Conc 32.6 g/dL (32-36); Mean Corpuscular Hgb 30.9 pg (27.0-32.0); Mean Corpuscular Volume 94.9 fL (80-94); Mean Platelet Vol. 9.5 fl (6.2-12.0); Monocyte# 0.59 X10^3/uL; Monocyte% 6.9 % (0-10); NRBC Flagged by Analyzer 0 % (0-5); Neutrophil # 6.87 X10^3/uL (2.7-7.7); Neutrophil % 79.7 % (47-70); Platelet Count 138 K/mm3 (150-450); RBC Distribution Width CV 13.2 % (11.6-14.6); RBC Distribution Width SD 46.3 fl (35.1-43.9); White Blood Count 8.6 K/mm3 (4.4-11.0)
[2021-02-09 20:54] LABS: Anion Gap 1 (5-15); BUN 38 mg/dL (7-18); BUN/Creat Ratio 11.7 RATIO (10-20); Calcium,Total 9.3 mg/dL (8.5-10.1); Chloride 107 mmol/L (98-107); Creatinine, Serum 3.24 mg/dL (0.70-1.30); EST Glomerular Filtration Rate 20 mL/min (>60); Est Glom Filt Rate - Afr Amer 24 mL/min (>60); Estimated Creatinine Clearance 18.05 ml/min; Glucose 103 mg/dL (74-106); Potassium 4.7 mmol/L (3.5-5.1); Sodium Level 135 mmol/L (136-145); Troponin-I HS 7 pg/mL (3.0-78.0)
--- NOTE | 2021-02-09 20:55 | RAD_ITS ---
INDICATION: fever EXAMINATION/TECHNIQUE: X-RAY - XR Chest 1 View COMPARISON: 11/04/2020. FINDINGS: The lungs are clear. The cardiomediastinal silhouette is unremarkable. No pleural effusion or pneumothorax. No acute osseous abnormalities. RAD/Chest 1 View (Portable) IMPRESSION: No acute radiographic abnormalities. Electronically Signed: Michael Valentine MD at 21:53 EDT Tel , Service support ,
[2021-02-09] MEDS: 0.9% Normal Saline 1,000 ML 150 ML IV (21:44)
[2021-02-09 21:51] VITALS: BP 153/96; PULSE 66; RESP 16; TEMP 36.9; O2SAT 97
[2021-02-09 21:51] LABS: Bacteria 0 SEEN /hpf (None Seen); Mucous, Urine 0 SEEN /hpf (<or=2+); White Blood Cells 0 SEEN /hpf (0-5)
[2021-02-09 22:03] LABS: Color, Urine Yellow (Yellow); Glucose, Dipstick Normal (Normal); Ketone-Dipstick Negative (Negative); Leukocyte Esterase-Dipstick Negative /ul (Negative); Nitrite-Dipstick Negative (Negative); Occult Blood-Urine 10 /ul (Negative); Protein-Dipstick 100 mg/dl (Negative); Urine Bilirubin Dipstick Negative (Negative); Urine Clarity Clear (Clear); Urine Urobilinogen Normal (Normal)
[2021-02-09 22:15] LABS: Red Blood Cells-Urine 0-5 SEEN /hpf (0-5); Squamous Epithelial Cells - UA 0-5 SEEN /hpf (0-5)
== END 2021-02-09 22:41 | disposition home or self-care (01) ==
PROVIDERS: Emergency Provider Emergency Medicine
DX: R53.1 Weakness (principal); R50.9 Fever, unspecified; M31.30 Wegener's granulomatosis without renal involvement; I13.0 Hypertensive heart and chronic kidney disease with heart failure and stage 1 through stage 4 chronic kidney disease, or unspecified chronic kidney disease; N18.30 Chronic kidney disease, stage 3 unspecified; I50.22 Chronic systolic (congestive) heart failure; K21.9 Gastro-esophageal reflux disease without esophagitis; Z79.899 Other long term (current) drug therapy; Z87.891 Personal history of nicotine dependence
CPT/HCPCS: 71045; 80048; 81001; 83605; 84484; 85025; 87040; 87426; 93005; 96360; 99284; J7030; A4216

== ENCOUNTER 2021-05-26 15:38 | Emergency (ER) | payer MEDICARE, OTHER, SELFPAY ==
[2021-05-26 15:38] VITALS: BP 127/73; PULSE 78; RESP 18; TEMP 36.1; O2SAT 100; BMI 36.0
--- NOTE | 2021-05-26 16:01 | EKG12_ITS ---
Test Reason : SOB\CP Blood Pressure : / mmHG Vent. Rate : 077 BPM Atrial Rate : 077 BPM P-R Int : 178 ms QRS Dur : 080 ms QT Int : 370 ms P-R-T Axes : 053 013 048 degrees QTc Int : 418 ms Sinus rhythm with occasional Premature ventricular complexes Low voltage QRS (limb leads) Confirmed by KEMAL SUMMERS, LUIGI ([id number]), society editor SHEFALI BRODY ([id number]) on 05/29/2021 12:49:11 PM Referred By: CRUZITO/CRISTHIAN Confirmed By:LUIGI SOMMER MD
--- NOTE | 2021-05-26 16:04 | EDS_ITS ---
HPI History of Present Illness Chief Complaint: Chest Pain Informant: patient Narrative Narrative: Patient presents with episode of lower chest pain. He states he was standing at home next to a table. It just came on. It was a deep ache. It radiated from his lower middle chest out really everywhere to his upper chest and shoulders. It did radiate into his back a little bit under his shoulder blades. It did not go down in the abdomen. He felt short of breath when it occurred. However, he was not lightheaded or near syncopal or syncopal. He did not have nausea vomiting or diaphoresis. The pain lasted for about 20 or 30 minutes. It then came down but has not gone completely away. The dyspnea is gone. He states is just an ache now. He has had this before but it is not this bad normally. He did have a heart catheterization that I looked up from about 2-1/2 years ago. That showed overall normal coronary arteries and preserved ejection fraction. Patient does have a history of Zach's granulomatosis. He has had mostly renal dysfunction with this. [facility] Medical History Abnormal stress echo BPH (benign prostatic hyperplasia) Chest pain Chronic kidney disease, stage 3 (moderate) Chronic systolic heart failure Claudication Congestive heart failure (CHF) Essential hypertension Former smoker GERD (gastroesophageal reflux disease) Hard of hearing History of tobacco use Hypertension Irregular heart beat Kidney disease Obstructive sleep apnea Prediabetes Shortness of breath Zach's granulomatosis Home Medications metoprolol tartrate 25 mg PO BID 05/28/18 [History Last Taken 11/04/20 08:00] omeprazole 40 mg capsule,delayed release 40 mg PO DAILY 11/04/18 [History Last Taken 11/04/20 08:00] gabapentin 100 mg capsule 100 mg PO DAILY cap 11/10/18 [History Last Taken 11/04/20 08:00] sodium bicarbonate 1 tab PO TID 12/11/19 [History Last Taken 11/04/20 12:00] azathioprine 100 mg PO DAILY 11/04/20 [History Last Taken 11/04/20 12:00] cholecalciferol (vitamin D3) [Vitamin D3] 25 mcg PO DAILY 11/04/20 [History Last Taken 11/04/20 12:00] clotrimazole 10 mg MUCOUS MEMBRANE TID 11/04/20 [History Last Taken 11/04/20 12:00] gabapentin 200 mg PO QHS 11/04/20 [History Last Taken 11/03/20 20:00] oxycodone-acetaminophen 1 tab PO Q6H PRN 11/04/20 [History Last Taken 11/04/20 10:00] sulfamethoxazole-trimethoprim 1 tab PO DAILY 11/04/20 [History Last Taken 11/04/20 12:00] Allergy/AdvReac Type Severity Reaction Status Date / Time aspirin AdvReac Severe cannot Verified 05/26/21 15:55 take d/t Zach's Vasculitis Family History Mother CAD (coronary artery disease) Congestive heart failure Father Prostate cancer Lung cancer Brother Colon cancer Sister Colon cancer Surgical History H/O arthroscopy of left knee (1988) History of colonoscopy History of endoscopy (01/02/16) History of left heart catheterization (11/12/18) History of prostate biopsy (01/11/14) History of total right hip arthroplasty (02/05/16) S/P arthroscopic surgery of left knee (1989) Status post biopsy of kidney (12/2013) Social History Smoking Status: Former smoker ROS ROS ED Constitutional Constitutional ED: Denies chills or fever(s) Eyes Eyes: Denies blurry vision or change in vision ENT ENT ED: Denies rhinorrhea or sore throat Cardiovascular Cardiovascular: Reports as per HPI Respiratory/Chest Respiratory/Chest: Reports dyspnea; Denies cough, dyspnea on exertion or sputum Gastrointestinal Gastrointestinal: Denies abdominal pain, nausea or vomiting Musculoskeletal Musculoskeletal: Denies back pain Integumentary Denies rash Neurologic Neurologic: Denies headache(s), paresthesias or weakness Endocrine Endocrinology: Denies polydipsia or polyuria Hematologic/Lymphatic Hematologic/Lymphatic: Denies easy bleeding or easy bruising Allergic/Immunologic Allergic/Immunologic ED: Denies mouth swelling or urticaria EXAM Physical Exam Const Vital Signs: 05/26/21 15:38 05/26/21 16:04 05/26/21 16:48 Temperature 97.0 F L Temperature Source Temporal Pulse Rate 78 79 Respiratory Rate 18 21 H Blood Pressure 127/73 H Blood Pressure Mean 91 Pulse Ox 100 Oxygen Delivery Method Room Air Room Air 05/26/21 17:05 05/26/21 18:27 Temperature Temperature Source Pulse Rate 74 106 H Respiratory Rate 19 H 14 Blood Pressure 138/77 H Blood Pressure Mean 97 Pulse Ox 100 Oxygen Delivery Method Room Air Positive well nourished, well developed and obese General Appearance ED: well developed and NAD Nutritional Appearance: obese HEENT Reports moist mucous membranes Eyes General Eye ED: Negative for pale conjunctiva or scleral icterus Neck no JVD Chest Wall inspection of chest normal and palpation of chest normal Resp normal respiratory effort and clear to auscultation bilaterally Resp Narrative: No pain with deep breath Effort and Inspection: Negative for respiratory distress or pain with movement Auscultation: Negative for rales, rhonchi or wheezes Cardio regular rate and regular rhythm Rate: other Other Details: No murmur heard. Tones are not muffled. Equal pulses x4 extremities. GI normal to inspection, nondistended, normoactive bowel sounds, soft to palpation, non-tender, non-distended and no masses GI Narrative: Abdomen is obese but benign. There is no tenderness. I hear no bruit. I feel no mass. No discomfort whatsoever pressing on the abdomen. Back/Spine no CVA tenderness Extremity normal to inspection General Extremety ED: Negative for edema, pulses abnormal or tenderness General Extremity: Negative for edema or pulses abnormal Neuro Sensorium / Orientation: awake and alert Psych mental status grossly normal Skin no rashes or lesions noted MDM MDM MDM Narrative Medical decision making narrative: Patient CBC showed some mildly low white count. With this we did add Covid which was negative. Hemoglobin is stable for him. His creatinine is slowly worsening but he knows that. They are planning to get a vascular access for possible dialysis soon. Glucose is minimally up at 132. Troponin is only 8 despite symptoms starting at 930 this morning. D-dimer was negative. Chest x-ray showed no acute process. We did do CT scan of his chest and abdomen without contrast. We had a long talk that this does not show vascular structures as well. But we also do not want to hasten the loss of his kidneys. There is no sign of significant aneurysm blood abscess or other issue. Patient now states he has had this happen before it is just that this was worse than normal. He states he was standing up and he turned to the left and as soon as he turned he got the pain. He does not know if he strained something. But he states he feels fine now. He would prefer to go home. We did talk about repeating the troponin. However he states since his symptoms started so long ago would not the test be positive. And I agreed that it likely would. He also has a heart catheterization summer 2018 that showed angiographically normal coronaries. We discussed reasons to return. Lab Data Attestation: I reviewed the patient's lab results. Labs: Laboratory Results - last 24 hr 05/26/21 05/26/21 05/26/21 16:11 16:11 16:11 WBC 4.1 L RBC 3.94 L Hgb 11.7 L Hct 37.8 L MCV 95.9 H MCH 29.7 MCHC 31.0 L RDW Std Deviation 47.4 H RDW Coeff of Misael 13.3 Plt Count 119 L MPV 9.1 Immature Gran % (Auto) 0.200 Neut % (Auto) 66.9 Lymph % (Auto) 22.3 [place] % (Auto) 8.2 Eos % (Auto) 1.7 Baso % (Auto) 0.7 Absolute Neuts (auto) 2.8 Absolute Lymphs (auto) 0.92 Nucleated RBC % 0 D-Dimer Quant (PE/DVT) 0.46 Sodium 138 Potassium 5.0 Chloride 107 Carbon Dioxide 24.0 Anion Gap 7 BUN 43 H Creatinine 3.85 H Estim Creat Clear Calc 15.19 Est GFR (MDRD) Af Amer 20 L Est GFR (MDRD) Non-Af 16 L BUN/Creatinine Ratio 11.2 Glucose 132 H Calcium 9.0 Troponin I High Sens 8 Radiography Diagnostic Testing: Clinical Impression(s) from Imaging Studies Chest X-Ray 05/26/21 16:15 IMPRESSION: No radiographic evidence of acute cardiopulmonary disease. at 1700 Reported and signed by: Lamont San MD Electronically Signed: Lamont San MD at 16:59 EST Tel , Service support , Chest/Abdomen/Pelvis CT 05/26/21 16:59 IMPRESSION: Moderate stool in the colon which may represent early constipation. No other acute abnormalities are identified. Individualized dose optimization techniques were used for this CT. at 1846 Reported and signed by: Lamont San MD Electronically Signed: Lamont San MD at 18:45 EST Tel , Service support , EKG Initial EKG: Comments: EKG done for chest pain read by me showed normal sinus rhythm with overall rate of 77. There was a rare PVC. No acute ST elevation or depression. [place] interval, QRS S duration and QTc are all normal. Discharge Plan Triage Chief Complaint: Chest Pain ED Provider: Ez Campos Dx/Rx/DC Orders Clinical Impression: Chest pain Instructions: ED Chest Pain, Uncertain Cause Prescriptions: No Action omeprazole 40 mg capsule,delayed release(DR/EC) 40 mg PO DAILY RF: 0 metoprolol tartrate 25 MG tablet 25 mg PO BID RF: 0 gabapentin 100 mg capsule 100 mg PO DAILY RF: 0 sodium bicarbonate 650 mg tablet 1 tab PO TID RF: 0 clotrimazole 10 mg Jade 10 mg MUCOUS MEMBRANE TID RF: 0 sulfamethoxazole-trimethoprim 400-80 mg tablet 1 tab PO DAILY RF: 0 azathioprine 50 mg tablet 100 mg PO DAILY RF: 0 oxycodone-acetaminophen 5-325 mg tablet 1 tab PO Q6H PRN (Reason: Pain) RF: 0 gabapentin 100 mg Capsule 200 mg PO QHS RF: 0 cholecalciferol (vitamin D3) [Vitamin D3] 25 mcg (1,000 unit) Tablet 25 mcg PO DAILY RF: 0 Referrals: RAHEL MATA [Other] - 3-5 Days Disposition Disposition: Home, Self Care
--- NOTE | 2021-05-26 16:15 | RAD_ITS ---
EXAM: XR CHEST, 1 VIEW : 1945 CLINICAL INDICATION: chest pain TECHNIQUE: Frontal view of the chest. This report was created using [employer] report generation technology. COMPARISON: 02/09/2021 FINDINGS: LUNGS AND PLEURAL SPACES: Unremarkable. No consolidation or edema. No pneumothorax. No effusion. HEART: Unremarkable. Cardiac silhouette not enlarged. MEDIASTINUM: Central airways and mediastinal contour are unremarkable. BONES/JOINTS: Unremarkable. SOFT TISSUES: Unremarkable. RAD/Chest 1 View (Portable) IMPRESSION: No radiographic evidence of acute cardiopulmonary disease. at 1700 Reported and signed by: Lamont San MD Electronically Signed: Lamont San MD at 16:59 EST Tel , Service support ,
[2021-05-26 16:17] LABS: Absolute Lymphocyte Count 0.92 X10^3/uL (0.83-4.51); Absolute Neutrophil Count 2.8 X10^3/uL (2.0-7.7); Basophil# 0.03 X10^3/uL; Basophil% 0.7 % (0-1); Eosinophil# 0.07 X10^3/uL; Eosinophils% 1.7 % (0-5); Hematocrit 37.8 % (40-54); Hemoglobin 11.7 g/dL (13.0-16.5); Lymphocyte # 0.92 X10^3/ul (0.83-4.51); Lymphocyte % 22.3 % (19-41); Mean Corpuscular Hgb 29.7 pg (27.0-32.0); Mean Corpuscular Volume 95.9 fL (80-94); Mean Platelet Vol. 9.1 fl (6.2-12.0); Monocyte# 0.34 X10^3/uL; Monocyte% 8.2 % (0-10); NRBC Flagged by Analyzer 0 % (0-5); Neutrophil # 2.76 X10^3/uL (2.7-7.7); Neutrophil % 66.9 % (47-70); Platelet Count 119 K/mm3 (150-450); RBC Distribution Width CV 13.3 % (11.6-14.6); RBC Distribution Width SD 47.4 fl (35.1-43.9); Red Blood Count 3.94 M/mm3 (4.6-6.2); White Blood Count 4.1 K/mm3 (4.4-11.0)
[2021-05-26 16:29] LABS: D-Dimer Quantitative (DVT/PE) 0.46 FEU/ug/m (0.27-0.49)
[2021-05-26 16:39] LABS: Anion Gap 7 (5-15); BUN 43 mg/dL (7-18); BUN/Creat Ratio 11.2 RATIO (10-20); Chloride 107 mmol/L (98-107); Creatinine, Serum 3.85 mg/dL (0.70-1.30); EST Glomerular Filtration Rate 16 mL/min (>60); Est Glom Filt Rate - Afr Amer 20 mL/min (>60); Estimated Creatinine Clearance 15.19 ml/min; Glucose 132 mg/dL (74-106); Sodium Level 138 mmol/L (136-145); Troponin-I HS 8 pg/mL (3.0-78.0)
[2021-05-26 16:48] VITALS: PULSE 79; RESP 21
--- NOTE | 2021-05-26 16:59 | CT_ITS ---
EXAM: CT CHEST, ABDOMEN AND PELVIS WITHOUT INTRAVENOUS CONTRAST : 1945 CLINICAL INDICATION: pain -- NO IV contrast TECHNIQUE: Helically acquired images were obtained of the chest, abdomen and pelvis without intravenous contrast. This CT exam was performed using one or more of the following dose reduction techniques: automated exposure control, adjustment of the mA and/or kV according to patient size, and/or use of iterative reconstruction technique. This report was created using [employer] report generation technology. COMPARISON: None. FINDINGS: CHEST: LUNGS AND PLEURAL SPACES: Unremarkable. No mass. No consolidation or edema. No pleural effusion or thickening. No pneumothorax. HEART: Unremarkable. Heart size is normal. No pericardial effusion. No significant coronary artery calcifications. MEDIASTINUM: There is a calcified subcarinal node. Esophagus is unremarkable. No hiatal hernia. THYROID: Unremarkable. No thyroid lesions. ABDOMEN: LIVER: Unremarkable. Homogeneous. GALLBLADDER AND BILE DUCTS: Unremarkable. No calcified gallstones. No gallbladder distention or wall edema. No intra- or extrahepatic biliary ductal dilation. PANCREAS: Unremarkable. No focal cystic mass. SPLEEN: Unremarkable. Normal size without focal cystic or solid mass. ADRENALS: Unremarkable. No nodules. KIDNEYS AND URETERS: There is a low-density mass in the left kidney compatible with a cyst. No follow-up imaging is necessary. No hydronephrosis. STOMACH AND BOWEL: There is moderate stool in the colon which may represent constipation. No stomach or bowel distention. No focal inflammatory change. PELVIS: APPENDIX: No evidence of acute appendicitis. BLADDER: Unremarkable. REPRODUCTIVE: Unremarkable as visualized. No mass. CHEST, ABDOMEN and PELVIS: INTRAPERITONEAL SPACE: Unremarkable. No ascites or other fluid collection. No free air. BONES/JOINTS: There is beam hardening artifact from a right hip prosthesis. No suspicious lytic or blastic abnormality. SOFT TISSUES: Unremarkable. No discrete abdominal or pelvic wall hernia. VASCULATURE: Unremarkable. Aorta is non-dilated. LYMPH NODES: See above. CT/CT Chest, Abd, Pelvis WO Cont IMPRESSION: Moderate stool in the colon which may represent early constipation. No other acute abnormalities are identified. Individualized dose optimization techniques were used for this CT. at 1846 Reported and signed by: Lamont San MD Electronically Signed: Lamont San MD at 18:45 EST Tel , Service support ,
[2021-05-26 17:05] VITALS: PULSE 74; RESP 19
[2021-05-26 18:27] VITALS: BP 138/77; PULSE 106; RESP 14; O2SAT 100
[2021-05-26 20:03] VITALS: BP 137/88; PULSE 81; RESP 17; O2SAT 98
== END 2021-05-26 20:04 | disposition home or self-care (01) ==
PROVIDERS: Emergency Provider Emergency Medicine; Visit Provider Emergency Medicine
DX: R07.9 Chest pain, unspecified (principal); M31.30 Wegener's granulomatosis without renal involvement; I13.0 Hypertensive heart and chronic kidney disease with heart failure and stage 1 through stage 4 chronic kidney disease, or unspecified chronic kidney disease; I50.22 Chronic systolic (congestive) heart failure; N18.30 Chronic kidney disease, stage 3 unspecified; R06.02 Shortness of breath; Z87.891 Personal history of nicotine dependence; N40.0 Benign prostatic hyperplasia without lower urinary tract symptoms; K21.9 Gastro-esophageal reflux disease without esophagitis; G47.33 Obstructive sleep apnea (adult) (pediatric); Z79.899 Other long term (current) drug therapy; E66.9 Obesity, unspecified; I49.3 Ventricular premature depolarization; Z68.36 Body mass index [BMI] 36.0-36.9, adult
CPT/HCPCS: 71045; 71250; 74176; 80048; 84484; 85025; 85379; 87426; 93005; 99284

== ENCOUNTER 2022-01-18 18:15 | Observation (INO) | payer MEDICARE, OTHER, SELFPAY ==
[2022-01-18] VITALS (9 sets, daily range): BP systolic 106–171; BP diastolic 71–94; PULSE 84–89; RESP 13–18; TEMP 37–37.9; O2SAT 95–97; BMI 33.7; BMI 30.5
[2022-01-18 18:36] LABS: Mucous, Urine 0 SEEN /hpf (<or=2+); Red Blood Cells-Urine 0 SEEN /hpf (0-5); Squamous Epithelial Cells - UA 0 SEEN /hpf (0-5); White Blood Cells 0 SEEN /hpf (0-5)
[2022-01-18 18:46] LABS: Color, Urine Yellow (Yellow); Glucose, Dipstick Normal (Normal); Ketone-Dipstick Negative (Negative); Leukocyte Esterase-Dipstick Negative /ul (Negative); Nitrite-Dipstick Negative (Negative); Occult Blood-Urine 10 /ul (Negative); Protein-Dipstick 100 mg/dl (Negative); Urine Bilirubin Dipstick Negative (Negative); Urine Clarity Clear (Clear); Urine Urobilinogen Normal (Normal)
[2022-01-18 18:59] LABS: Bacteria RARE /hpf (None Seen)
--- NOTE | 2022-01-18 20:07 | EKG12_ITS ---
Test Reason : SYNCOPE Blood Pressure : / mmHG Vent. Rate : 085 BPM Atrial Rate : 085 BPM P-R Int : 170 ms QRS Dur : 070 ms QT Int : 346 ms P-R-T Axes : 048 008 032 degrees QTc Int : 411 ms Normal sinus rhythm Normal ECG Confirmed by DANYA SUMMERS, RUFUS ([id number]), publications editor [employer] ([id number]) on 01/22/2022 8:59:16 AM Referred By: ZARINA Confirmed By:JANET HAGAN MD
--- NOTE | 2022-01-18 20:08 | EX.ED.DYSGE1 ---
HPI History of Present Illness Chief Complaint: Complaint Detail of Chief Complaint: Weakness and confusion, possible UTI Informant: patient, spouse/S.O. and family Onset/Context/Timing Onset: Today Narrative Narrative: Patient presents with family secondary to evaluation of weakness and confusion. They state in the past when he is got like this he had an infection and the most recent episode was from UTI. Family states that he seemed very confused and just want to sit at rest today and not take part in activities. They deny that he has had a cough. He has not been eating well recently. He does have renal failure and is undergoing the process to initiate dialysis. He has not yet started dialysis, states it was going to be reevaluated in February. [facility] Medical History Abnormal stress echo BPH (benign prostatic hyperplasia) Chest pain Chronic kidney disease, stage 3 (moderate) Chronic systolic heart failure Claudication Congestive heart failure (CHF) Essential hypertension Former smoker GERD (gastroesophageal reflux disease) Hard of hearing History of tobacco use Hypertension Irregular heart beat Kidney disease Obstructive sleep apnea Prediabetes Shortness of breath Zach's granulomatosis Home Medications metoprolol tartrate 25 mg tablet 25 mg PO BID BP 05/28/18 [History Last Taken 11/04/20 08:00] omeprazole 40 mg capsule,delayed release 40 mg PO DAILY stomach 11/04/18 [History Last Taken 11/04/20 08:00] sodium bicarbonate 650 mg tablet 1 tab PO TID supplement & stomach 12/11/19 [History Last Taken 11/04/20 12:00] azathioprine 50 mg tablet 100 mg PO DAILY chemo 11/04/20 [History Last Taken 11/04/20 12:00] cholecalciferol (vitamin D3) 25 mcg (1,000 unit) tablet (Vitamin D3) 25 mcg PO DAILY supplement 11/04/20 [History Last Taken 11/04/20 12:00] clotrimazole 10 mg chuy 10 mg mucous membrane TID mouth sores 11/04/20 [History Last Taken 11/04/20 12:00] gabapentin 100 mg capsule 100 mg PO TID neuropathy 11/04/20 [History Last Taken 11/03/20 20:00] oxycodone-acetaminophen 5 mg-325 mg tablet 1 tab PO Q8H PRN Pain 11/04/20 [History Last Taken 11/04/20 10:00] sulfamethoxazole 400 mg-trimethoprim 80 mg tablet 1 tab PO DAILY infection 11/04/20 [History Last Taken 11/04/20 12:00] patiromer calcium sorbitex 8.4 gram oral powder packet (Veltassa) 8.4 g PO DAILY 01/18/22 [History Last Taken Unknown] Allergy/AdvReac Type Severity Reaction Status Date / Time aspirin AdvReac Severe cannot Verified 01/18/22 18:19 take d/t Zach's Vasculitis Family History Mother CAD (coronary artery disease) Congestive heart failure Father Prostate cancer Lung cancer Brother Colon cancer Sister Colon cancer Surgical History H/O arthroscopy of left knee (1988) History of colonoscopy History of endoscopy (01/02/16) History of left heart catheterization (11/12/18) History of prostate biopsy (01/11/14) History of total right hip arthroplasty (02/05/16) S/P arthroscopic surgery of left knee (1989) Status post biopsy of kidney (12/2013) Social History Smoking Status: Former smoker ROS ROS ED Constitutional Constitutional ED: Reports chills; Denies fever(s) Eyes Eyes: Denies change in vision or discharge from eye(s) ENT ENT ED: Denies discharge from eye(s), rhinorrhea or sore throat Cardiovascular Cardiovascular: Denies chest pain or palpitations Respiratory/Chest Respiratory/Chest: Denies cough or dyspnea Gastrointestinal Gastrointestinal: Denies abdominal pain, nausea or vomiting Genitourinary Genitourinary ED: Denies difficulty urinating or dysuria Musculoskeletal Musculoskeletal: Denies back pain or extremity pain Integumentary Denies Abrasions or rash Neurologic Neurologic: Reports weakness; Denies headache(s) Allergic/Immunologic Allergic/Immunologic ED: Denies lip swelling or urticaria EXAM Physical Exam Const Vital Signs: 01/18/22 18:15 01/18/22 18:19 01/18/22 19:19 Temperature 98.9 F 98.9 F 100.2 F H Temperature Source Temporal Temporal Oral Pulse Rate 89 89 86 Respiratory Rate 18 18 16 Blood Pressure 134/74 H 134/74 H 148/71 H Blood Pressure Mean 94 94 96 Pulse Ox 96 96 97 Oxygen Delivery Method Room Air Room Air Room Air 01/18/22 20:13 01/18/22 20:14 01/18/22 22:27 Temperature 99.4 F H Temperature Source Oral Pulse Rate 86 Respiratory Rate 13 Blood Pressure 171/94 H Blood Pressure Mean 119 Pulse Ox 95 97 Oxygen Delivery Method Room Air Room Air 01/18/22 22:28 Temperature 98.7 F Temperature Source Temporal Pulse Rate Respiratory Rate Blood Pressure Blood Pressure Mean Pulse Ox Oxygen Delivery Method Positive well nourished and well developed General Appearance ED: well developed HEENT Reports dry mucous membranes Mouth ED: Yes dry mucous membranes Mouth: dry mucous membranes Eyes EOMs intact bilaterally Chest Wall inspection of chest normal and palpation of chest normal Resp normal respiratory effort and clear to auscultation bilaterally Cardio regular rate and regular rhythm GI non-tender Palpation: soft Extremity normal to inspection Neuro oriented x3 Sensorium / Orientation: alert Skin no rashes or lesions noted MDM MDM MDM Narrative Medical decision making narrative: Sepsis work-up initiated. COVID and flu swabs also obtained. Lab Data Attestation: I reviewed the patient's lab results. Labs: Laboratory Results - last 24 hr 01/18/22 01/18/22 01/18/22 18:32 19:53 19:53 WBC 4.6 RBC 4.33 L Hgb 13.4 Hct 41.1 MCV 94.9 H MCH 30.9 MCHC 32.6 RDW Std Deviation 47.4 H RDW Coeff of Misael 13.4 Plt Count 131 L MPV 10.3 Immature Gran % (Auto) 0.600 Neut % (Auto) 82.1 H Lymph % (Auto) 5.8 L [place] % (Auto) 10.0 Eos % (Auto) 1.1 Baso % (Auto) 0.4 Absolute Neuts (auto) 3.8 Absolute Lymphs (auto) 0.27 L Nucleated RBC % 0 Differential Comment SCANNED PT 13.8 INR 1.1 APTT 30.2 Sodium Potassium Chloride Carbon Dioxide Anion Gap BUN Creatinine Estim Creat Clear Calc Est GFR (MDRD) Af Amer Est GFR (MDRD) Non-Af BUN/Creatinine Ratio Glucose Lactic Acid Calcium Total Bilirubin AST ALT Alkaline Phosphatase Total Protein Albumin Globulin Albumin/Globulin Ratio Urine Color Yellow Urine Clarity Clear Urine pH 8.0 Ur Specific [place] 1.010 Urine Protein 100 H Urine Glucose (UA) Normal Urine Ketones Negative Urine Occult Blood 10 H Urine Nitrite Negative Urine Bilirubin Negative Urine Urobilinogen Normal Ur Leukocyte Esterase Negative Urine RBC 0 SEEN Urine WBC 0 SEEN Ur Squamous Epith Cells 0 SEEN Urine Bacteria RARE Urine Mucus 0 SEEN 01/18/22 01/18/22 19:53 19:53 WBC RBC Hgb Hct MCV MCH MCHC RDW Std Deviation RDW Coeff of Misael Plt Count MPV Immature Gran % (Auto) Neut % (Auto) Lymph % (Auto) [place] % (Auto) Eos % (Auto) Baso % (Auto) Absolute Neuts (auto) Absolute Lymphs (auto) Nucleated RBC % Differential Comment PT INR APTT Sodium 137 Potassium 5.3 H Chloride 106 Carbon Dioxide 25.0 Anion Gap 6 BUN 31 H Creatinine 3.43 H Estim Creat Clear Calc 16.79 Est GFR (MDRD) Af Amer 23 L Est GFR (MDRD) Non-Af 19 L BUN/Creatinine Ratio 9.0 L Glucose 111 H Lactic Acid 0.9 Calcium 9.0 Total Bilirubin 0.50 AST 13 L ALT 16 Alkaline Phosphatase 114 Total Protein 6.9 Albumin 3.9 Globulin 3.0 Albumin/Globulin Ratio 1.3 Urine Color Urine Clarity Urine pH Ur Specific [place] Urine Protein Urine Glucose (UA) Urine Ketones Urine Occult Blood Urine Nitrite Urine Bilirubin Urine Urobilinogen Ur Leukocyte Esterase Urine RBC Urine WBC Ur Squamous Epith Cells Urine Bacteria Urine Mucus Radiography Chest X-Ray - ED: 1 View, Read by ED Physician and Chronic Changes Diagnostic Testing: Clinical Impression(s) from Imaging Studies Chest X-Ray 01/18/22 20:32 IMPRESSION: No radiographic evidence of acute cardiopulmonary disease and no interval change when compared to 05/26/2021. Electronically Signed: Steve Flores MD at 21:01 EDT , EKG Initial EKG: Attestation: I personally reviewed and interpreted this EKG as follows: Interpretation: Sinus Rhythm (Sinus 85 with no acute ischemia.) Treatment and Re-Evaluation Narrative: CBC, coags, urinalysis all unremarkable. COVID test is positive. Chemistry studies significant for slightly elevated potassium at 5.3 with chronic renal failure at baseline. Creatinine is 3.43. Lactic acid is normal. Chest x-ray per my interpretation reveals no acute findings, chronic changes only. Radiology interpretation is also reviewed. Test results are discussed with patient and family at bedside. Given his significant weakness and unable to care for him prior to arrival I do feel he will require observation overnight. I will speak with the hospitalist. At this time patient is not hypoxic. Discharge Plan Triage Chief Complaint: Complaint ED Provider: Maegan Donohue Dx/Rx/DC Orders Clinical Impression: COVID-19, Weakness, Hyperkalemia, Chronic kidney failure Prescriptions: No Action omeprazole 40 mg capsule,delayed release(DR/EC) 40 mg PO DAILY metoprolol tartrate 25 MG tablet 25 mg PO BID Label Comments: Heart medication sodium bicarbonate 650 mg tablet 1 tab PO TID Label Comments: TAKE 1 TABLET BY MOUTH TWICE DAILY FOR 30 DAYS clotrimazole 10 mg Chuy 10 mg MUCOUS MEMBRANE TID sulfamethoxazole-trimethoprim 400-80 mg tablet 1 tab PO DAILY azathioprine 50 mg tablet 100 mg PO DAILY oxycodone-acetaminophen 5-325 mg tablet 1 tab PO Q8H PRN (Reason: Pain) gabapentin 100 mg Capsule 100 mg PO TID cholecalciferol (vitamin D3) [Vitamin D3] 25 mcg (1,000 unit) Tablet 25 mcg PO DAILY Veltassa 8.4 gram Powder In Packet 8.4 g PO DAILY Primary Care Provider: RAHEL AMTA Referrals: RAHEL MATA [Other] Disposition Disposition: Acute Care Hospital [facility]
[2022-01-18 20:30] LABS: Absolute Lymphocyte Count 0.27 X10^3/uL (0.83-4.51); Absolute Neutrophil Count 3.8 X10^3/uL (2.0-7.7); Basophil# 0.02 X10^3/uL; Basophil% 0.4 % (0-1); Eosinophil# 0.05 X10^3/uL; Eosinophils% 1.1 % (0-5); Hematocrit 41.1 % (40-54); Hemoglobin 13.4 g/dL (13.0-16.5); Lymphocyte # 0.27 X10^3/ul (0.83-4.51); Lymphocyte % 5.8 % (19-41); Mean Corp Hgb Conc 32.6 g/dL (32-36); Mean Corpuscular Hgb 30.9 pg (27.0-32.0); Mean Corpuscular Volume 94.9 fL (80-94); Mean Platelet Vol. 10.3 fl (6.2-12.0); Monocyte# 0.46 X10^3/uL; NRBC Flagged by Analyzer 0 % (0-5); Neutrophil # 3.79 X10^3/uL (2.7-7.7); Neutrophil % 82.1 % (47-70); POSITIVE DIFFERENTIAL YES; Platelet Count 131 K/mm3 (150-450); RBC Distribution Width CV 13.4 % (11.6-14.6); RBC Distribution Width SD 47.4 fl (35.1-43.9); Red Blood Count 4.33 M/mm3 (4.6-6.2); White Blood Count 4.6 K/mm3 (4.4-11.0)
--- NOTE | 2022-01-18 20:32 | RAD_ITS ---
EXAM: XR CHEST, 1 VIEW CLINICAL INDICATION: Fever. TECHNIQUE: Frontal view of the chest. This report was created using [employer] report generation technology. COMPARISON: 05/26/2021. FINDINGS: LUNGS AND PLEURAL SPACES: Unremarkable. No consolidation or edema. No pneumothorax. No effusion. HEART: Unremarkable. Cardiac silhouette not enlarged. MEDIASTINUM: Central airways and mediastinal contour are unremarkable. BONES/JOINTS: Unremarkable. SOFT TISSUES: Unremarkable. RAD/Chest 1 View (Portable) IMPRESSION: No radiographic evidence of acute cardiopulmonary disease and no interval change when compared to 05/26/2021. Electronically Signed: Steve Flores MD at 21:01 EDT ,
[2022-01-18 20:36] LABS: Lactic Acid 0.9 mmol/L (0.4-1.9)
[2022-01-18 20:48] LABS: International Normalized Ratio 1.1; Prothrombin Time (Protime)PT. 13.8 SECONDS (11.7-14.9)
[2022-01-18 20:49] LABS: Partial Thromboplast Time 30.2 Seconds (24.1-36.2)
[2022-01-18 20:52] LABS: Differential Indicated SCAN CRITERIA MET
[2022-01-18 21:00] LABS: ALB/GLOB Ratio 1.3 RATIO (0.9-2.4); AST(SGOT) 13 U/L (15-37); Alanine Aminotransfer ALT/SGPT 16 U/L (16-61); Albumin, Serum 3.9 g/dL (3.2-5.0); Alkaline Phosphatase 114 U/L (45-117); Anion Gap 6 (5-15); BUN 31 mg/dL (7-18); Chloride 106 mmol/L (98-107); Creatinine, Serum 3.43 mg/dL (0.70-1.30); EST Glomerular Filtration Rate 19 mL/min (>60); Est Glom Filt Rate - Afr Amer 23 mL/min (>60); Estimated Creatinine Clearance 16.79 ml/min; Glucose 111 mg/dL (74-106); Potassium 5.3 mmol/L (3.5-5.1); Protein, Total 6.9 g/dL (6.4-8.2); Sodium Level 137 mmol/L (136-145)
[2022-01-18 21:15] LABS: Differential Comment SCANNED
[2022-01-18] MEDS: Acetaminophen 325 MG Tablet 650 MG PO (22:26)
--- NOTE | 2022-01-18 23:01 | HP.PCM.HOS_ITS ---
HPI - General General Date of Admission: 01/18/22 Date of Service: 01/18/22 Chief Complaint: Weakness HPI Narrative REBEKAH REID, is a 76 M with a significant history of granulomatosis with polyangiitis and on azathioprine and Bactrim who presents to the emergency department with persistent weakness that started on the same day of prese ntation. Patient is so weak the family unable to take care of him. Further he reports malaise and. Per family patient had some confusion. Patient has poor appetite. [facility] Medical History Abnormal stress echo BPH (benign prostatic hyperplasia) Chest pain Chronic kidney disease, stage 3 (moderate) Chronic systolic heart failure Claudication Congestive heart failure (CHF) Essential hypertension Former smoker GERD (gastroesophageal reflux disease) Hard of hearing History of tobacco use Hypertension Irregular heart beat Kidney disease Obstructive sleep apnea Prediabetes Shortness of breath Zach's granulomatosis Home Medications metoprolol tartrate 25 mg tablet 25 mg PO BID BP 05/28/18 [History Last Taken 11/04/20 08:00] omeprazole 40 mg capsule,delayed release 40 mg PO DAILY stomach 11/04/18 [History Last Taken 11/04/20 08:00] sodium bicarbonate 650 mg tablet 1 tab PO TID supplement & stomach 12/11/19 [History Last Taken 11/04/20 12:00] azathioprine 50 mg tablet 100 mg PO DAILY chemo 11/04/20 [History Last Taken 11/04/20 12:00] cholecalciferol (vitamin D3) 25 mcg (1,000 unit) tablet (Vitamin D3) 25 mcg PO DAILY supplement 11/04/20 [History Last Taken 11/04/20 12:00] clotrimazole 10 mg chuy 10 mg mucous membrane TID mouth sores 11/04/20 [History Last Taken 11/04/20 12:00] gabapentin 100 mg capsule 100 mg PO TID neuropathy 11/04/20 [History Last Taken 11/03/20 20:00] oxycodone-acetaminophen 5 mg-325 mg tablet 1 tab PO Q8H PRN Pain 11/04/20 [History Last Taken 11/04/20 10:00] sulfamethoxazole 400 mg-trimethoprim 80 mg tablet 1 tab PO DAILY infection 11/04/20 [History Last Taken 11/04/20 12:00] patiromer calcium sorbitex 8.4 gram oral powder packet (Veltassa) 8.4 g PO DAILY 01/18/22 [History Last Taken Unknown] Allergy/AdvReac Type Severity Reaction Status Date / Time aspirin AdvReac Severe cannot Verified 01/18/22 18:19 take d/t Zach's Vasculitis Family History Mother CAD (coronary artery disease) Congestive heart failure Father Prostate cancer Lung cancer Brother Colon cancer Sister Colon cancer Surgical History H/O arthroscopy of left knee (1988) History of colonoscopy History of endoscopy (01/02/16) History of left heart catheterization (11/12/18) History of prostate biopsy (01/11/14) History of total right hip arthroplasty (02/05/16) S/P arthroscopic surgery of left knee (1989) Status post biopsy of kidney (12/2013) Social History Smoking Status: Former smoker ROS ROS Narrative Pertinent positives and pertinent negatives as noted in HPI. All other systems were reviewed and are negative Vital Signs Vital Signs Vital Signs: 01/18/22 18:15 01/18/22 18:19 01/18/22 19:19 Temperature 98.9 F 98.9 F 100.2 F H Temperature Source Temporal Temporal Oral Pulse Rate 89 89 86 Respiratory Rate 18 18 16 Blood Pressure 134/74 H 134/74 H 148/71 H Blood Pressure Mean 94 94 96 Pulse Ox 96 96 97 Oxygen Delivery Method Room Air Room Air Room Air 01/18/22 20:13 01/18/22 20:14 01/18/22 22:27 Temperature 99.4 F H Temperature Source Oral Pulse Rate 86 Respiratory Rate 13 Blood Pressure 171/94 H Blood Pressure Mean 119 Pulse Ox 95 97 Oxygen Delivery Method Room Air Room Air 01/18/22 22:28 Temperature 98.7 F Temperature Source Temporal Pulse Rate Respiratory Rate Blood Pressure Blood Pressure Mean Pulse Ox Oxygen Delivery Method Weight Weight: 94.801 kg Body Mass Index (BMI) 33.7 Physical Exam Narrative Physical exam: General: Well-nourished, well-developed. Head: Normocephalic, atraumatic, no tenderness Eyes: Vision is grossly intact. EOMI ENT, no trauma, moist mucous membranes, no rhinorrhea Neck: Nontender, full range of motion CVS: Regular rate and rhythm. S1-S2 present. No murmur, gallop or rub. Respiratory : Rales at bilateral bases, chest wall nontender, no wheezing Abdomen: Soft, nontender, nondistended, normal bowel sounds, no masses : Deferred Back: Nontender, no CVA tenderness. Extremities: Dialysis fistula with thrill and bruit in left upper extremity. Nontender full range of motion, no trauma Skin: Normal color, no trauma, abrasions Neuro: Lethargic, knows where he is. Knows his name. Knows the year. Does not know the month. Psychiatry: Normal mood. Normal affect. Psychomotor retardation. Results Lab / Micro Data Result Diagrams: 01/18/22 19:53 01/18/22 19:53 Labs: Laboratory Results - last 24 hr 01/18/22 18:32: Urine Color Yellow, Urine Clarity Clear, Urine pH 8.0, Ur Specific [place] 1.010, Urine Protein 100 H, Urine Glucose (UA) Normal, Urine Ketones Negative, Urine Occult Blood 10 H, Urine Nitrite Negative, Urine Bilirubin Negative, Urine Urobilinogen Normal, Ur Leukocyte Esterase Negative, Urine RBC 0 SEEN, Urine WBC 0 SEEN, Ur Squamous Epith Cells 0 SEEN, Urine Bacteria RARE, Urine Mucus 0 SEEN 01/18/22 19:53: WBC 4.6, RBC 4.33 L, Hgb 13.4, Hct 41.1, MCV 94.9 H, MCH 30.9, MCHC 32.6, RDW Std Deviation 47.4 H, RDW Coeff of Misael 13.4, Plt Count 131 L, MPV 10.3, Immature Gran % (Auto) 0.600, Neut % (Auto) 82.1 H, Lymph % (Auto) 5.8 L, [place] % (Auto) 10.0, Eos % (Auto) 1.1, Baso % (Auto) 0.4, Absolute Neuts (auto) 3.8, Absolute Lymphs (auto) 0.27 L, Nucleated RBC % 0, Differential Comment SCANNED 01/18/22 19:53: PT 13.8, INR 1.1, APTT 30.2 01/18/22 19:53: Sodium 137, Potassium 5.3 H, Chloride 106, Carbon Dioxide 25.0, Anion Gap 6, BUN 31 H, Creatinine 3.43 H, Estim Creat Clear Calc 16.79, Est GFR (MDRD) Af Amer 23 L, Est GFR (MDRD) Non-Af 19 L, BUN/Creatinine Ratio 9.0 L, Glucose 111 H, Calcium 9.0, Total Bilirubin 0.50, AST 13 L, ALT 16, Alkaline Phosphatase 114, Total Protein 6.9, Albumin 3.9, Globulin 3.0, Albumin/Globulin Ratio 1.3 01/18/22 19:53: Lactic Acid 0.9 Micro: Microbiology 01/18/22 20:10 Nasal Secretion SARS-CoV-2 & FLU Antigen (Rapid) - Final SARS-CoV-2 (COVID 19) Radiology Impression Chest X-Ray 01/18/22 20:32 IMPRESSION: No radiographic evidence of acute cardiopulmonary disease and no interval change when compared to 05/26/2021. Electronically Signed: Steve Flores MD at 21:01 EDT , Assessment & Plan Assessment/Plan (1) Generalized weakness: (2) COVID-19: (3) Hyperkalemia: (4) Chronic kidney failure: (5) Encephalopathy acute: PLAN: Plan Generalized weakness/debility PT and OT to work with patient for strengthening and balance training. Case management consult for disposition. Acute encephalopathy Improved. Discussed with patient we will hold gabapentin and oxycodone for now. As needed Tylenol for pain. Check TSH. Check vitamin B12. COVID-19 infection Rapid COVID 19 antigen positive. Enhanced contact isolation precautions. CXR was visualized independent interpreted and agree with interpretation of no acute cardiopulmonary process and no interval change compared to previous. 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 Stable Hyperkalemia Potassium presentation was 5.3. Likely secondary to CKD. Trend BMP. DVT Prophylaxis: Subcutaneous Lovenox ordered Charges/Coding Visit Charges OBSV E&M: 17392 Initial observation care L3
[2022-01-19] MEDS: Acetaminophen 325 MG Tablet 650 MG PO ×2 (04:50→12:52)
[2022-01-19 05:45] VITALS: BP 150/82; PULSE 84; RESP 17; TEMP 36.8; O2SAT 95
[2022-01-19 07:01] LABS: Absolute Lymphocyte Count 0.34 X10^3/uL (0.83-4.51); Absolute Neutrophil Count 2.8 X10^3/uL (2.0-7.7); Basophil# 0.02 X10^3/uL; Basophil% 0.6 % (0-1); Eosinophil# 0.01 X10^3/uL; Eosinophils% 0.3 % (0-5); Hematocrit 40.6 % (40-54); Lymphocyte # 0.34 X10^3/ul (0.83-4.51); Lymphocyte % 9.6 % (19-41); Mean Corpuscular Hgb 30.2 pg (27.0-32.0); Mean Corpuscular Volume 94.4 fL (80-94); Mean Platelet Vol. 9.2 fl (6.2-12.0); Monocyte# 0.42 X10^3/uL; Monocyte% 11.8 % (0-10); NRBC Flagged by Analyzer 0 % (0-5); Neutrophil # 2.75 X10^3/uL (2.7-7.7); Neutrophil % 77.1 % (47-70); POSITIVE COUNT YES; POSITIVE DIFFERENTIAL YES; Platelet Count 98 K/mm3 (150-450); RBC Distribution Width CV 13.5 % (11.6-14.6); RBC Distribution Width SD 46.6 fl (35.1-43.9); White Blood Count 3.6 K/mm3 (4.4-11.0)
[2022-01-19 07:05] LABS: Differential Indicated SCAN CRITERIA MET
[2022-01-19 07:26] LABS: Differential Comment SCANNED; Platelet Estimate SLT DEC (ADEQ)
[2022-01-19 07:38] LABS: Anion Gap 8 (5-15); BUN 30 mg/dL (7-18); BUN/Creat Ratio 9.4 RATIO (10-20); Calcium,Total 8.7 mg/dL (8.5-10.1); Chloride 105 mmol/L (98-107); EST Glomerular Filtration Rate 20 mL/min (>60); Est Glom Filt Rate - Afr Amer 25 mL/min (>60); Glucose 102 mg/dL (74-106); Potassium 4.6 mmol/L (3.5-5.1); Sodium Level 135 mmol/L (136-145); Thyroid Stim Hormone (TSH) 1.14 uIU/mL (0.358-3.74)
[2022-01-19 07:44] VITALS: O2SAT 95
[2022-01-19 09:45] VITALS: BP 149/74; PULSE 88; RESP 16; TEMP 36.6; O2SAT 97
[2022-01-19] MEDS: Metoprolol Tartrate 25 MG Tablet PO (09:45)
[2022-01-19] MEDS: Pantoprazole Sodium 40 MG Tablet PO (09:45)
[2022-01-19] MEDS: Sodium Bicarbonate 650 MG Tablet PO ×2 (09:45→12:52)
[2022-01-19] MEDS: Cholecalciferol (VIT D3) 25 MCG TABLET (1,000 UNITS) PO (09:45)
[2022-01-19] MEDS: azaTHIOprine 50 MG Tablet 100 MG PO (09:45)
[2022-01-19] MEDS: Smz/Tmp Ds Tablet 0.5 TABLET PO (09:45)
--- NOTE | 2022-01-19 11:56 | PCM.PN.HOSP ---
Subjective Subjective Doing well, no issues overnight. Maintaining his oxygen saturations on room air Objective Data Objective Data Vital Signs: Vital Signs Temp Pulse Resp BP Pulse Ox O2 Del Method 97.9 F 88 16 149/74 H 97 Room Air 01/19/22 09:45 01/19/22 09:45 01/19/22 09:45 01/19/22 09:45 01/19/22 09:45 01/19/22 09:45 Oxygen Delivery Method Room Air Weight: 201 lb 0.985 oz Body Mass Index (BMI) 30.5 Lab / Micro Data Result Diagrams: 01/19/22 06:50 01/19/22 06:50 Labs: Laboratory Results - last 24 hr 01/18/22 18:32: Urine Color Yellow, Urine Clarity Clear, Urine pH 8.0, Ur Specific [place] 1.010, Urine Protein 100 H, Urine Glucose (UA) Normal, Urine Ketones Negative, Urine Occult Blood 10 H, Urine Nitrite Negative, Urine Bilirubin Negative, Urine Urobilinogen Normal, Ur Leukocyte Esterase Negative, Urine RBC 0 SEEN, Urine WBC 0 SEEN, Ur Squamous Epith Cells 0 SEEN, Urine Bacteria RARE, Urine Mucus 0 SEEN 01/18/22 19:53: WBC 4.6, RBC 4.33 L, Hgb 13.4, Hct 41.1, MCV 94.9 H, MCH 30.9, MCHC 32.6, RDW Std Deviation 47.4 H, RDW Coeff of Misael 13.4, Plt Count 131 L, MPV 10.3, Immature Gran % (Auto) 0.600, Neut % (Auto) 82.1 H, Lymph % (Auto) 5.8 L, [place] % (Auto) 10.0, Eos % (Auto) 1.1, Baso % (Auto) 0.4, Absolute Neuts (auto) 3.8, Absolute Lymphs (auto) 0.27 L, Nucleated RBC % 0, Differential Comment SCANNED 01/18/22 19:53: PT 13.8, INR 1.1, APTT 30.2 01/18/22 19:53: Sodium 137, Potassium 5.3 H, Chloride 106, Carbon Dioxide 25.0, Anion Gap 6, BUN 31 H, Creatinine 3.43 H, Estim Creat Clear Calc 16.79, Est GFR (MDRD) Af Amer 23 L, Est GFR (MDRD) Non-Af 19 L, BUN/Creatinine Ratio 9.0 L, Glucose 111 H, Calcium 9.0, Total Bilirubin 0.50, AST 13 L, ALT 16, Alkaline Phosphatase 114, Total Protein 6.9, Albumin 3.9, Globulin 3.0, Albumin/Globulin Ratio 1.3 01/18/22 19:53: Lactic Acid 0.9 01/19/22 06:50: WBC 3.6 L, RBC 4.30 L, Hgb 13.0, Hct 40.6, MCV 94.4 H, MCH 30.2, MCHC 32.0, RDW Std Deviation 46.6 H, RDW Coeff of Misael 13.5, Plt Count 98 L, MPV 9.2, Immature Gran % (Auto) 0.600, Neut % (Auto) 77.1 H, Lymph % (Auto) 9.6 L, [place] % (Auto) 11.8 H, Eos % (Auto) 0.3, Baso % (Auto) 0.6, Absolute Neuts (auto) 2.8, Absolute Lymphs (auto) 0.34 L, Nucleated RBC % 0, Differential Comment SCANNED, Diff Path Review September, Platelet Estimate SLT 01/19/22 06:50: Sodium 135 L, Potassium 4.6, Chloride 105, Carbon Dioxide 22.0, Anion Gap 8, BUN 30 H, Creatinine 3.20 H, Estim Creat Clear Calc 19.30, Est GFR (MDRD) Af Amer 25 L, Est GFR (MDRD) Non-Af 20 L, BUN/Creatinine Ratio 9.4 L, Glucose 102, Calcium 8.7, TSH 1.14 Micro: Microbiology 01/18/22 20:10 Nasal Secretion SARS-CoV-2 & FLU Antigen (Rapid) - Final SARS-CoV-2 (COVID 19) Radiography Diagnostic Testing: Radiology Impression Chest X-Ray 01/18/22 20:32 IMPRESSION: No radiographic evidence of acute cardiopulmonary disease and no interval change when compared to 05/26/2021. Electronically Signed: Steve Flores MD at 21:01 EDT , Physical Exam Narrative General: Alert, Oriented x3, Cooperative, No apparent distress HEENT: Atraumatic, PERRLA, EOMI, Normocephalic Oral: Moist Mucosa Neck: Supple, No JVD Lungs: Clear to auscultation, Normal air movement, No rhonchi, No wheeze, No rales Cardiovascular: Regular rate, Regular Rhythm, Normal S1, Normal S2, No murmurs Abdomen: Soft, Non Tender, Non-Distended, No Hepato-splenomegaly Extremities: No edema, Capillary Refill Less than 3 Seconds Skin: No rashes, No breakdown Musculoskeletal: No Tenderness to Palpation of Joints or Extremities Neurological: Cranial nerves II-XII grossly intact, Motor Exam 5/5 strength throughout, Sensory exam intact to light touch and pain Psych/Mental Status: Normal Affect, Appropriate Assessment & Plan Assessment/Plan (1) Generalized weakness: (2) COVID-19: (3) Hyperkalemia: (4) Chronic kidney failure: (5) Encephalopathy acute: PLAN: Plan Generalized weakness/debility PT and OT to work with patient for strengthening and balance training. Case management consult for disposition. Acute encephalopathy Improved. Discussed with patient we will hold gabapentin and oxycodone for now. As needed Tylenol for pain. Check TSH. Check vitamin B12. COVID-19 infection Rapid COVID 19 antigen positive. Enhanced contact isolation precautions. CXR was visualized independent interpreted and agree with interpretation of no acute cardiopulmonary process and no interval change compared to previous. 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 Stable Hyperkalemia Potassium presentation was 5.3. Likely secondary to CKD. Trend BMP. DVT Prophylaxis: Subcutaneous Lovenox ordered
--- NOTE | 2022-01-19 13:09 | CASEMGMT ---
Social Work As per admitting industrial manufacturing technician, Estephania Rosario is pt's medical POA. Pt is not able to bring in LW/POA papers at this time. JACK Rogers
[2022-01-19 14:13] VITALS: BP 156/78; PULSE 82; RESP 18; TEMP 36.7; O2SAT 96
[2022-01-19 14:17] VITALS: O2SAT 96; O2SAT 97
--- NOTE | 2022-01-19 14:18 | DCINST_ITS ---
Discharge Instructions Diet Discharge Diet: Low fat / Low cholesterol Activity Discharge Activity: Return to Normal Activity Dressing / Incision Call your doctor if you observe: Fever of 101 or Higher, Shortness of breath, Dizziness, Fainting spells, Swelling in the ankles, Chest pain and Increased palpitations (irregular heartbeat) Follow Up Care Test Results: Test results from this visit will be discussed in further detail at your follow- up appointment, if applicable. Discharge Plan Admission Admit Date/Time: 01/18/22 22:53 Attending Provider: Cornel Martinez Primary Care Provider: RAHEL MATA Consulting Providers: José Miguel Mitchell Discharge Orders/Prescriptions Prescriptions: Continued omeprazole 40 mg capsule,delayed release(DR/EC) 40 mg PO DAILY metoprolol tartrate 25 MG tablet 25 mg PO BID Label Comments: Heart medication sodium bicarbonate 650 mg tablet 1 tab PO TID Label Comments: TAKE 1 TABLET BY MOUTH TWICE DAILY FOR 30 DAYS sulfamethoxazole-trimethoprim [Bactrim] 400-80 mg tablet 1 tab PO DAILY azathioprine 50 mg tablet 100 mg PO DAILY oxycodone-acetaminophen 5-325 mg tablet 1 tab PO Q8H PRN PRN (Reason: Pain) gabapentin 100 mg Capsule 100 mg PO TID Referrals / Follow Up: RAHEL MATA [Other] RAHEL MATA [Other] Disposition Disposition (needs filled in before D/C Order can be placed): Home, Self Care
--- NOTE | 2022-01-19 14:20 | DS.PCM_ITS ---
Providers Date of Admission: 01/18/22 Primary Care Physician: RAHEL MATA Reason For Visit: COVID, WEAKNESS, CONFUSION Diagnosis Discharge Diagnosis (1) Generalized weakness: Status: Acute Code(s): R53.1 - Weakness (2) COVID-19: Status: Acute Code(s): U07.1 - COVID-19 (3) Hyperkalemia: Status: Acute Code(s): E87.5 - Hyperkalemia (4) Chronic kidney failure: Status: Chronic Code(s): N18.9 - Chronic kidney disease, unspecified (5) Encephalopathy acute: Status: Acute Code(s): G93.40 - Encephalopathy, unspecified Medications at Discharge Home Medications metoprolol tartrate 25 mg tablet 25 mg PO BID BP 05/28/18 omeprazole 40 mg capsule,delayed release 40 mg PO DAILY stomach 11/04/18 sodium bicarbonate 650 mg tablet 1 tab PO TID supplement & stomach 12/11/19 azathioprine 50 mg tablet 100 mg PO DAILY chemo 11/04/20 gabapentin 100 mg capsule 100 mg PO TID neuropathy 11/04/20 oxycodone-acetaminophen 5 mg-325 mg tablet 1 tab PO Q8H PRN PRN Pain 11/04/20 sulfamethoxazole 400 mg-trimethoprim 80 mg tablet (Bactrim) 1 tab PO DAILY infection 11/04/20 Hospital Course Operations None Procedures None Summary of Care Provided Minutes Spent on Discharge: 39 Hospital Course: Per HPI: REBEKAH REID, is a 76 M with a significant history of granulomatosis with polyangiitis and on azathioprine and Bactrim who presents to the emergency department with persistent weakness that started on the same day of presentation.? Patient is so weak the family unable to take care of him.? Further he reports malaise and.? Per family patient had some confusion. Patient has poor appetite. Hospital Course: 1. COVID-19 with generalized weakness and encephalopathy?76-year-old male presents from home with generalized weakness. 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 He tested positive for COVID on the day of presentation and he was extremely weak which is why family brought him in. He states that he has probably noticed some increased joint achiness for about the last week or 2 which may be the start of his COVID symptoms. Today he is feeling much better and is ambulating without any assistance. His confusion has completely resolved and he would like to go home. I discussed with him and his that going home is a possibility, and they expressed understanding of the risk and benefits of going home and they would still like to go home. I did offer the possibility of staying 1 more day just to monitor his renal function and any progressive shortness of breath that he could develop with COVID however they still elected to go home. He did have an ambulatory pulse ox prior to discharge and he did not need any oxygen. On his admission his potassium was also 5.3, this has resolved and his renal function remains at baseline with CKD stage IV. 2. 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 His home medications were continued where appropriate Physical Exam Narrative General: Alert, Oriented x3, Cooperative, No apparent distress HEENT: Atraumatic, PERRLA, EOMI, Normocephalic Oral: Moist Mucosa Neck: Supple, No JVD Lungs: Clear to auscultation, Normal air movement, No rhonchi, No wheeze, No rales Cardiovascular: Regular rate, Regular Rhythm, Normal S1, Normal S2, No murmurs Abdomen: Soft, Non Tender, Non-Distended, No Hepato-splenomegaly Extremities: No edema, Capillary Refill Less than 3 Seconds Skin: No rashes, No breakdown Musculoskeletal: No Tenderness to Palpation of Joints or Extremities Neurological: Cranial nerves II-XII grossly intact, Motor Exam 5/5 strength throughout, Sensory exam intact to light touch and pain Psych/Mental Status: Normal Affect, Appropriate Weight / BMI Weight Weight: 201 lb 0.985 oz Body Mass Index (BMI) 30.5 ABG / Lab / Microbiology Data Result Diagrams: 01/19/22 06:50 01/19/22 06:50 Laboratory: Laboratory Results - last 24 hr 01/18/22 18:32: Urine Color Yellow, Urine Clarity Clear, Urine pH 8.0, Ur Specific [place] 1.010, Urine Protein 100 H, Urine Glucose (UA) Normal, Urine Ketones Negative, Urine Occult Blood 10 H, Urine Nitrite Negative, Urine Bilirubin Negative, Urine Urobilinogen Normal, Ur Leukocyte Esterase Negative, Urine RBC 0 SEEN, Urine WBC 0 SEEN, Ur Squamous Epith Cells 0 SEEN, Urine Bacteria RARE, Urine Mucus 0 SEEN 01/18/22 19:53: WBC 4.6, RBC 4.33 L, Hgb 13.4, Hct 41.1, MCV 94.9 H, MCH 30.9, MCHC 32.6, RDW Std Deviation 47.4 H, RDW Coeff of Misael 13.4, Plt Count 131 L, MPV 10.3, Immature Gran % (Auto) 0.600, Neut % (Auto) 82.1 H, Lymph % (Auto) 5.8 L, [place] % (Auto) 10.0, Eos % (Auto) 1.1, Baso % (Auto) 0.4, Absolute Neuts (auto) 3.8, Absolute Lymphs (auto) 0.27 L, Nucleated RBC % 0, Differential Comment SCANNED 01/18/22 19:53: PT 13.8, INR 1.1, APTT 30.2 01/18/22 19:53: Sodium 137, Potassium 5.3 H, Chloride 106, Carbon Dioxide 25.0, Anion Gap 6, BUN 31 H, Creatinine 3.43 H, Estim Creat Clear Calc 16.79, Est GFR (MDRD) Af Amer 23 L, Est GFR (MDRD) Non-Af 19 L, BUN/Creatinine Ratio 9.0 L, Glucose 111 H, Calcium 9.0, Total Bilirubin 0.50, AST 13 L, ALT 16, Alkaline Phosphatase 114, Total Protein 6.9, Albumin 3.9, Globulin 3.0, Albumin/Globulin Ratio 1.3 01/18/22 19:53: Lactic Acid 0.9 01/19/22 06:50: WBC 3.6 L, RBC 4.30 L, Hgb 13.0, Hct 40.6, MCV 94.4 H, MCH 30.2, MCHC 32.0, RDW Std Deviation 46.6 H, RDW Coeff of Misael 13.5, Plt Count 98 L, MPV 9.2, Immature Gran % (Auto) 0.600, Neut % (Auto) 77.1 H, Lymph % (Auto) 9.6 L, [place] % (Auto) 11.8 H, Eos % (Auto) 0.3, Baso % (Auto) 0.6, Absolute Neuts (auto) 2.8, Absolute Lymphs (auto) 0.34 L, Nucleated RBC % 0, Differential Comment SCANNED, Diff Path Review September foll, Platelet Estimate SLT 01/19/22 06:50: Sodium 135 L, Potassium 4.6, Chloride 105, Carbon Dioxide 22.0, Anion Gap 8, BUN 30 H, Creatinine 3.20 H, Estim Creat Clear Calc 19.30, Est GFR (MDRD) Af Amer 25 L, Est GFR (MDRD) Non-Af 20 L, BUN/Creatinine Ratio 9.4 L, Glucose 102, Calcium 8.7, TSH 1.14 Microbiology: Microbiology 01/18/22 18:32 Urine, Clean Catch Urine Culture - Preliminary Mixed Gram Pos & Gram Neg Org 01/18/22 20:10 Nasal Secretion SARS-CoV-2 & FLU Antigen (Rapid) - Final SARS-CoV-2 (COVID 19) Radiography Diagnostic Testing: Radiology Impression Chest X-Ray 01/18/22 20:32 IMPRESSION: No radiographic evidence of acute cardiopulmonary disease and no interval change when compared to 05/26/2021. Electronically Signed: Steve Flores MD at 21:01 EDT , D/C Instructions Discharge Diet: Low fat / Low cholesterol Call your doctor if you observe: Fever of 101 or Higher, Shortness of breath, Di zziness, Fainting spells, Swelling in the ankles, Chest pain and Increased palpitations (irregular heartbeat) Meaningful Use Info Meaningful Use Diagnoses (Choose all that apply): None applicable Discharge Plan Admission Admit Date/Time: 01/18/22 22:53 Attending Provider: Cornel Martinez Primary Care Provider: RAHEL MATA Consulting Providers: José Migule Mitchell Discharge Orders/Prescriptions Prescriptions: Continued omeprazole 40 mg capsule,delayed release(DR/EC) 40 mg PO DAILY metoprolol tartrate 25 MG tablet 25 mg PO BID Label Comments: Heart medication sodium bicarbonate 650 mg tablet 1 tab PO TID Label Comments: TAKE 1 TABLET BY MOUTH TWICE DAILY FOR 30 DAYS sulfamethoxazole-trimethoprim [Bactrim] 400-80 mg tablet 1 tab PO DAILY azathioprine 50 mg tablet 100 mg PO DAILY oxycodone-acetaminophen 5-325 mg tablet 1 tab PO Q8H PRN PRN (Reason: Pain) gabapentin 100 mg Capsule 100 mg PO TID Referrals / Follow Up: RAHEL MATA [Other] RAHEL MATA [Other] Disposition Disposition (needs filled in before D/C Order can be placed): Home, Self Care Charges/Coding Visit Charges OBSV E&M: 04222 Observation care discharge
[2022-01-21 08:46] LABS: Vitamin B12 289 pg/mL (211-911)
[2022-01-22 13:42] LABS: Pathologist Review Reviewed
== END 2022-01-19 14:18 | disposition home or self-care (01) ==
LOC: ED 22:48 → PCU 01-19 01:30
PROVIDERS: Admitting Provider Hospitalist; Emergency Provider Emergency Medicine; Visit Provider Family Medicine
DX: U07.1 COVID-19 (principal); I50.22 Chronic systolic (congestive) heart failure; I13.0 Hypertensive heart and chronic kidney disease with heart failure and stage 1 through stage 4 chronic kidney disease, or unspecified chronic kidney disease; N18.4 Chronic kidney disease, stage 4 (severe); G93.40 Encephalopathy, unspecified; E87.5 Hyperkalemia; R53.1 Weakness; Z87.891 Personal history of nicotine dependence; Z79.899 Other long term (current) drug therapy; N40.0 Benign prostatic hyperplasia without lower urinary tract symptoms; G47.33 Obstructive sleep apnea (adult) (pediatric); R73.03 Prediabetes
CPT/HCPCS: 36415; 71045; 80048; 80053; 81001; 82607; 83605; 84443; 85025; 85610; 85730; 87040; 87086; 87088; 87428; 93005; 97802; 99218; 99285; A4216; G0378

== ENCOUNTER 2022-06-25 07:59 | Day surgery (SDC) | payer MEDICARE, OTHER, SELFPAY ==
[2022-06-25] VITALS (7 sets, daily range): BP systolic 122–152; BP diastolic 59–79; PULSE 62–68; RESP 16–18; TEMP 36.1–37.1; O2SAT 94–97; BMI 33.4
--- NOTE | 2022-06-25 | COLBX_PTH ---
PATIENT: REBEKAH REID LOC: EN U#:[id number] AGE/SX: 76/M ROOM: RE06/25/[address]: Dr. Julio Davidson MD : 1945 BED: DIS: 06/25/2022 SPEC #: [id number] RECD: 06/25/22 12:31 STATUS: NIGEL TONY #: [id number] ECHO: 06/25/22 00:[address]: Julio Davidson DEPT: SURGICAL PATHOLOGY RECD BY: Carlin Nichols ENTERED: 06/25/22 12:31 SP TYPE: COLON BX OTHR DR: Dr. Catalina Noguera MD Tissues: A - Cecum, NOS B - Ascending colon C - Transverse colon Procedures: Surgery Specimen Level IV HEADER OPERATION: Colonoscopy (MAC) with polypectomy PRE-OP DIAGNOSIS: GERD, family history malignant neoplasm of colon TISSUE SUBMITTED: A ? Cecum polyp x3 snare and biopsy, B ? Proximal ascending colon polyp biopsy and hot snare, C ? Proximal transverse colon polyp MICROSCOPIC DIAGNOSIS A. Cecum polyp, biopsy: Fragments of tubular adenoma. B. Proximal ascending colon, biopsy: Tubular adenoma. C. Proximal transverse colon polyp, biopsy: Rare benign glandular epithelium. AM:jacqueline 06/26/22 MICROSCOPIC DESCRIPTION Slides are reviewed. GROSS DESCRIPTION A. Received is one container labeled with the patient?s name and designated cecum polyp. The specimen consists of three irregular fragments of light downs soft tissue that in aggregate measure 1 x 0.8 x 0.1 cm. The specimen is totally submitted in one cassette. B. Received is one container labeled with the patient?s name and designated proximal ascending colon. The specimen consists of one irregular fragment of light downs soft tissue that measures 0.3 x 0.3 x 0.3 cm. The specimen is totally submitted in one cassette. C. Received is one container labeled with the patient?s name and designated proximal transverse colon polyp. The specimen consists of light downs mucoid material that measures 0.1 x <0.1 x <0.1 cm. The specimen is totally submitted in one cassette. /AM:jacqueline 06/26/2022 TC: 5 CPT: 06034 x3
--- NOTE | 2022-06-25 08:36 | HP.PCM_ITS ---
History and Physical Date of Admission: 06/25/22 Visit Reasons:?COLONOSCOPY Chief Complaint: colonscopy Is patient in pain?: No Allergies aspirin Adverse Reaction (Severe, Verified 06/14/22 09:06) cannot take d/t Zach's Vasculitis Medications metoprolol tartrate 25 mg tablet 25 mg PO BID BP 05/28/18 [History Confirmed 06/14/22] omeprazole 40 mg capsule,delayed release 40 mg PO DAILY stomach 11/04/18 [History Confirmed 06/14/22] sodium bicarbonate 650 mg tablet 1 tab PO TID supplement & stomach 12/11/19 [History Confirmed 06/14/22] azathioprine 50 mg tablet 100 mg PO DAILY chemo 11/04/20 [History Confirmed 06/14/22] sulfamethoxazole 400 mg-trimethoprim 80 mg tablet (Bactrim) 1 tab PO DAILY infection 11/04/20 [History Confirmed 06/14/22] clotrimazole 10 mg chuy 10 mg mucous membrane TID 02/13/22 [History Confirmed 06/14/22] gabapentin 100 mg capsule 200 mg PO QHS neuropathy 02/13/22 [History Confirmed 06/14/22] oxycodone-acetaminophen 5 mg-325 mg tablet 1 tab PO .Q6 PRN PRN Pain 02/13/22 [History Confirmed 06/14/22] patiromer calcium sorbitex 8.4 gram oral powder packet (Veltassa) 8.4 g PO DAILY 02/13/22 [History Confirmed 06/14/22] PFSH Medical History?(Updated 06/14/22 @ 05:[address] Julio Davidson MD) Abnormal stress echo BPH (benign prostatic hyperplasia) Chest pain Chronic kidney disease, stage 3 (moderate) Chronic systolic heart failure Claudication Essential hypertension Former smoker GERD (gastroesophageal reflux disease) Hard of hearing History of tobacco use Irregular heart beat Obstructive sleep apnea Prediabetes Rheumatoid arthritis Shortness of breath Zach's granulomatosis Surgical History? AV fistula Cataract extraction status H/O arthroscopy of left knee (1988) History of colonoscopy History of endoscopy (01/02/16) History of left heart catheterization (11/12/18) History of prostate biopsy (01/11/14) History of total right hip arthroplasty (02/05/16) S/P arthroscopic surgery of left knee (1989) S/P TURP Status post biopsy of kidney (12/2013) Family History? Mother CAD (coronary artery disease) Congestive heart failureFather Prostate cancer Lung cancerBrother Colon cancerSister Colon cancerGrandmother Diabetes Social History? household members:? spouse housing:? house 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 status:? 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 Former smoker quit date: 07/26/81 pack-years: 19 Electronic Cigarette Use:? not used alcohol intake:? never substance use type:? does not use what type of physical activity do you participate in:? none seatbelt use:? always do you feel safe at home:? Yes HPI HPI HPI: 76-year-old gentleman who is being referred by Dr. Beti Noguera for surgical consultation regarding a screening colonoscopy and a written copy of my surgical consult recommendations will return to her.? 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 He does take omeprazole for heartburn symptoms.? The patient has chronic pain issues and is on chronic narcotics.? He does have a history of sleep apnea.? The patient has a family history of colon cancer in her brother and his sister. The patient has Zach's granulomatosis.? He was treated with steroids which cause diabetes and fluid retention and congestive heart failure.? He was not felt to survive that.? Subsequently he stabilized to the point where he is not yet on hemodialysis.? About a year ago he had a left upper arm brachiocephalic arteriovenous hemodialysis fistula created has not been utilized.? Is functioning well. The timing of any previous colonoscopy is indeterminate.? He is being referred for screening examination. The patient has symptoms of gastroesophageal reflux disease and has been on long-term omeprazole therapy. ROS General General: Yes fatigue; No weight change, appetite, colon cancer, breast cancer or weakness HEENT HEENT: Yes eye surgery; No difficulty swallowing, eye injury, swollen glands or hoarseness Endo Endocrine: No thyroid disease, diabetes mellitus, thyroid cancer, Hair loss, heat intolerance or cold intolerance Skin Skin: No rash or changing moles Musc Musculoskeletal: No back problems, arthritis, rheumatoid arthritis, gout or joint pain Cardio Cardiovascular: Yes heart disease and high blood pressure; No murmur, pacemaker, atrial fibrillation, heart attack, heart stent, palpitations, shortness of breat with exertion or chest pain Psych Psychiatric: No depression, anxiety or hearing voices Resp Respiratory: No shortness of breath, No sleep apnea, No cough, No COPD, No asthma, No emphysema and No wheezing Gastro Gastrointestinal: No abdominal pain, No nausea or vomiting, No diarrhea, Yes constipation, No blood in stool, Yes acid reflux, No hemorrhoids, No ulcers, No gallbladder problem and No black,tarry stools Héctor Hematologic: No blood thinners, No blood disorders, No bleeding, No anemia and No blood clots Neuro Neurologic: No system reviewed and no additional complaints, except as documented, No as per HPI, No abnormal gait, No abnormal hearing, No abnormal movements, No abnormal speech, No behavioral changes, No burning sensations, No confusion, No convulsions, No disequilibrium, No dizziness, No localized weakness, No frequent falls, No headache(s), No lack of coordination, No loss of vision, No memory loss, No numbness, No other visual disturbances, No radicular pain, No restless legs, No sensory deficit, No syncope, No tingling, No t remor(s), No weakness and No other Exam Const General: cooperative, comfortable and no acute distress Other: Hard of hearing [facility] Head: normal to inspection Eyes General: appearance normal, both eyes and all related structures Resp Effort & Inspection: normal respiratory effort Auscultation: clear to auscultation bilaterally Cardio Rate: regular rate Rhythm: regular rhythm Other: 2/6 systolic ejection murmur GI Other: Soft, mildly overweight, nontender Skin General: no rashes or lesions noted Neuro General: patient alert, patient awake and patient oriented x3 Other: Hard of hearing Extrem Other: 2+ bilateral extremity edema Psych Appearance: grossly normal Assessment and Plan Assessment and Plan (1) GERD (gastroesophageal reflux disease): ?Status:?Acute (2) Family history of malignant neoplasm of colon: ?Status:?Acute ?Plan: 76-year-old gentleman.? I do concur that with a personal history of colon polyps that a follow-up colonoscopy would pertinent.? He currently is not yet on hemodialysis and has been relatively stable. He also has gastroesophageal reflux disease symptoms.? I have offered him consideration for combining an esophagogastroduodenoscopy at that same setting. He has declined this offer He has had an opportunity ask and have questions answered.? We will proceed at his discretion. Copy: Dr. Beti Davidson M.D., F.A.C.S I have examined the patient and the H&P has been reviewed. There are no clinical changes since date of exam. Julio Davidson M.D., F.A.C.S.
--- NOTE | 2022-06-25 10:39 | OP.CCLET_ITS ---
06/25/2022 Catalina Noguera Md Re : Colonoscopy procedure for Franklin Burton Dear Chuckie This procedure was performed on Saturday, June 25, 2022. My impressions and recommendations are as follows: Impressions : - Non-thrombosed external hemorrhoids, non-thrombosed internal hemorrhoids, internal hemorrhoids that prolapse with straining, but spontaneously regress to the resting position (Grade II) and enlarged prostate found on digital rectal exam. - Diverticulosis in the entire examined colon. - Three 2 to 4 mm polyps in the cecum, removed with a hot snare. Resected and retrieved. - One 4 mm polyp in the proximal ascending colon, removed with a hot snare. Resected and retrieved. - One 4 mm polyp in the proximal ascending colon, removed with a cold biopsy forceps. Resected and retrieved. - One 6 mm polyp in the proximal transverse colon, removed with a hot snare. Resected and retrieved. Recommendations : - Repeat colonoscopy in 3 years for surveillance. - Telephone my office for pathology results in 1 week. - Continue present medications. My findings are described in the full procedure note, which is enclosed. If I can be of further assistance, please feel free to contact me at Doctor phone number(s): Work: . Sincerely, Julio Davidson MD 06/25/2022 10:39:04 AM This report has been signed electronically.
--- NOTE | 2022-06-25 10:39 | OP.COLON_ITS ---
Patient Name: Franklin Burton Procedure Date: 06/25/2022 10:05 AM Date of : 1945 Age: 76 Procedure: Colonoscopy Indications: High risk colon cancer surveillance: Personal history of colonic polyps Providers: Julio Davidson MD Medicines: See the Anesthesia note for documentation of the administered medications Patient Profile: Last Colonoscopy: date unknown. Complications: No immediate complications. Procedure: Pre-Anesthesia Assessment: - Prior to the procedure, a History and Physical was performed, and patient medications and allergies were reviewed. The patient's tolerance of previous anesthesia was also reviewed. The risks and benefits of the procedure and the sedation options and risks were discussed with the patient. All questions were answered, and informed consent was obtained. Prior Anticoagulants: The patient has taken no previous anticoagulant or antiplatelet agents. ASA Grade Assessment: III - A patient with severe systemic disease. After reviewing the risks and benefits, the patient was deemed in satisfactory condition to undergo the procedure. After I obtained informed consent, the scope was passed under direct vision. Throughout the procedure, the patient's blood pressure, pulse, and oxygen saturations were monitored continuously. The adult colonoscope was introduced through the anus and advanced to the cecum, identified by appendiceal orifice and ileocecal valve. The colonoscopy was somewhat difficult due to a redundant colon. The patient tolerated the procedure well. The quality of the bowel preparation was adequate to identify polyps. The ileocecal valve was photographed. Scope In: 10:08:16 AM Scope Withdrawal Time 0 hours 18 minutes 58 seconds Scope Out: 10:32:27 AM Total Procedure Duration Time 0 hours 24 minutes 11 seconds Findings: The digital rectal exam findings include non-thrombosed external hemorrhoids, non-thrombosed internal hemorrhoids, internal hemorrhoids that prolapse with straining, but spontaneously regress to the resting position (Grade II) and enlarged prostate. Multiple diverticula were found in the entire colon. Three sessile polyps were found in the cecum. The polyps were 2 to 4 mm in size. These polyps were removed with a hot snare. Resection and retrieval were complete. A 4 mm polyp was found in the proximal ascending colon. The polyp was sessile. The polyp was removed with a hot snare. Resection and retrieval were complete. A 4 mm polyp was found in the proximal ascending colon. The polyp was sessile. The polyp was removed with a cold biopsy forceps. Resection and retrieval were complete. A 6 mm polyp was found in the proximal transverse colon. The polyp was sessile. The polyp was removed with a hot snare. Resection and retrieval were complete. Impression: - Non-thrombosed external hemorrhoids, non-thrombosed internal hemorrhoids, internal hemorrhoids that prolapse with straining, but spontaneously regress to the resting position (Grade II) and enlarged prostate found on digital rectal exam. - Diverticulosis in the entire examined colon. - Three 2 to 4 mm polyps in the cecum, removed with a hot snare. Resected and retrieved. - One 4 mm polyp in the proximal ascending colon, removed with a hot snare. Resected and retrieved. - One 4 mm polyp in the proximal ascending colon, removed with a cold biopsy forceps. Resected and retrieved. - One 6 mm polyp in the proximal transverse colon, removed with a hot snare. Resected and retrieved. Recommendation: - Repeat colonoscopy in 3 years for surveillance. - Telephone my office for pathology results in 1 week. - Continue present medications. Procedure Code(s): --- Professional --- 19906, Colonoscopy, flexible; with removal of tumor(s), polyp(s), or other lesion(s) by snare technique 54127, 59, Colonoscopy, flexible; with biopsy, single or multiple Diagnosis Code(s): --- Professional --- Z86.010, Personal history of colonic polyps K64.1, Second degree hemorrhoids K64.4, Residual hemorrhoidal skin tags D12.0, Benign neoplasm of cecum D12.2, Benign neoplasm of ascending colon D12.3, Benign neoplasm of transverse colon (hepatic flexure or splenic flexure) N40.0, Benign prostatic hyperplasia without lower urinary tract symptoms K57.30, Diverticulosis of large intestine without perforation or abscess without bleeding CPT copyright 2017 [employer]. All rights reserved. The codes documented in this report are preliminary and upon labor relations worker review may be revised to meet current compliance requirements. Julio Davidson MD 06/25/2022 10:39:04 AM This report has been signed electronically. Number of Addenda: 0 Note Initiated On: 06/25/2022 10:05 AM
== END 2022-06-25 11:55 | disposition home or self-care (01) ==
LOC: EN 07:59 → AC 08:01
PROVIDERS: PCP Internal Medicine; Referring Provider Internal Medicine; Visit Provider Surgery
PROC: 0DJD8ZZ Inspection of Lower Intestinal Tract, Via Natural or Artificial Opening Endoscopic (ICD-10-PCS; CPT 45378; principal; 2022-06-25 09:25)
DX: Z12.11 Encounter for screening for malignant neoplasm of colon (principal); I50.22 Chronic systolic (congestive) heart failure; I13.0 Hypertensive heart and chronic kidney disease with heart failure and stage 1 through stage 4 chronic kidney disease, or unspecified chronic kidney disease; E11.22 Type 2 diabetes mellitus with diabetic chronic kidney disease; N18.30 Chronic kidney disease, stage 3 unspecified; K57.30 Diverticulosis of large intestine without perforation or abscess without bleeding; Z87.891 Personal history of nicotine dependence; K64.4 Residual hemorrhoidal skin tags; K21.9 Gastro-esophageal reflux disease without esophagitis; Z86.010 Personal history of colon polyps; G89.29 Other chronic pain; Z79.899 Other long term (current) drug therapy; K64.1 Second degree hemorrhoids; N40.0 Benign prostatic hyperplasia without lower urinary tract symptoms; D12.0 Benign neoplasm of cecum; D12.2 Benign neoplasm of ascending colon
CPT/HCPCS: 45380; 45385; 88305; J7040; J7120; J2405

== ENCOUNTER → 2022-09-10 | Outpatient (CLI) | payer MEDICARE, OTHER, SELFPAY | END | disposition home or self-care (01) | LOC: LAB 11:13 | PROVIDERS: PCP Internal Medicine; Referring Provider Urology; Visit Provider Urology | DX: R97.20 Elevated prostate specific antigen [PSA] (principal) | CPT/HCPCS: 36415; 84153 ==

== ENCOUNTER 2022-11-09 06:09 | Emergency (ER) | payer MEDICARE, OTHER, SELFPAY ==
[2022-11-09 06:10] VITALS: BP 203/122; PULSE 86; RESP 16; TEMP 35.6; O2SAT 99; BMI 33.5
--- NOTE | 2022-11-09 06:19 | EX.ED.GUMALE ---
HPI History of Present Illness Chief Complaint: Complaint Detail of Chief Complaint: Unable to urinate since 9 PM last night. Informant: patient Pain Onset: Today and Hours Context: Gradual Onset Timing: Continuous Current Severity: Mild Maximum Severity: Mild Narrative Narrative: 77-year-old male history of BPH, CHF, end-stage renal disease dialysis. Went to bed last night around 9 PM. Was unable to urinate since that time. He has had a history of urinary retention before. He is not on oral anticoagulants but he does get heparin when he gets dialysis. When he was unable to urinate he tried to straight cath himself and was only able to get blood clots. Last dialysis was Friday. Yesterday's dialysis was unsuccessful due to an issue with the dialysis needle Prior similar symptoms: Yes Recent Illness/Hospitalization: No PFSH PFSH Medical History Abnormal stress echo Anemia Arthritis Back pain BPH (benign prostatic hyperplasia) Cardiology follow-up encounter Chest pain Chronic kidney disease, stage 3 (moderate) Chronic systolic heart failure Claudication Essential hypertension Former smoker Gastric reflux GERD (gastroesophageal reflux disease) Hard of hearing History of CHF (congestive heart failure) History of echocardiogram History of edema History of renal disease History of tobacco use Irregular heart beat Neuropathy Normal stress echocardiogram Obstructive sleep apnea Prediabetes Prostate disease Rheumatoid arthritis Shortness of breath Wears dentures Wears glasses Wears hearing aid Zach's granulomatosis Home Medications metoprolol tartrate 25 mg tablet 25 mg PO BID BP 05/28/18 [History Last Taken 06/25/22] omeprazole 40 mg capsule,delayed release 40 mg PO DAILY stomach 11/04/18 [History Last Taken 01/18/22] gabapentin 100 mg tablet 200 mg PO QHS 08/29/22 [History Last Taken Unknown] handicap placard #1 ea 08/29/22 [Rx Last Taken Unknown] leg brace (ANDRÉS Ankle Brace) #1 ea 08/29/22 [Rx Last Taken Unknown] oxycodone-acetaminophen 5 mg-325 mg tablet 1 tab PO Q8H PRN Pain 30 days #90 tabs 11/04/22 [Rx Last Taken Unknown] Allergy/AdvReac Type Severity Reaction Status Date / Time aspirin AdvReac Severe cannot Verified 08/29/22 09:56 take d/t Zach's Vasculitis Family History Mother CAD (coronary artery disease) Congestive heart failure Father Prostate cancer Lung cancer Brother Colon cancer Sister Colon cancer Grandmother Diabetes Surgical History AV fistula Cataract extraction status H/O arthroscopy of left knee (1988) History of colonoscopy History of endoscopy (01/02/16) History of left heart catheterization (11/12/18) History of prostate biopsy (01/11/14) History of total right hip arthroplasty (02/05/16) Hx of bilateral cataract extraction S/P arthroscopic surgery of left knee (1989) S/P TURP Status post biopsy of kidney (12/2013) Social History household members: spouse housing: house 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 Review of Systems ROS Unobtainable: Denies due to encephalopathy Constitutional Constitutional ED: Denies chills Eyes Eyes: Denies blurry vision ENT ENT ED: Denies ear pain Cardiovascular Cardiovascular: Denies chest pain Respiratory/Chest Respiratory/Chest: Denies cough Gastrointestinal Gastrointestinal: Denies abdominal pain Genitourinary Genitourinary ED: Denies dysuria Musculoskeletal Musculoskeletal: Denies arthralgias Integumentary Denies abscess Neurologic Neurologic: Denies headache(s) Psychiatric Psychiatric: Denies anxiety Endocrine Endocrinology: Denies polydipsia Hematologic/Lymphatic Hematologic/Lymphatic: Denies easy bleeding Allergic/Immunologic Allergic/Immunologic ED: Denies mouth swelling EXAM Physical Exam Narrative Exam Narrative: 77-year-old male. Complaining of suprapubic pain. Vital signs are stable. Blood pressure is elevated at 203/122 most likely elevated due to pain. H EENT exam unremarkable. Lungs clear. Heart regular rhythm rate about 85. Abdomen soft, nondistended normal bowel sounds no peritoneal signs. He does have tenderness in his suprapubic region. Moving all 4 extremities. Trace edema both lower extremities. Neurologically is awake alert with no focal motor deficits. Const Vital Signs: 11/09/22 06:10 Temperature 96.0 F L Temperature Source Temporal Pulse Rate 86 Respiratory Rate 16 Blood Pressure 203/122 H Blood Pressure Mean 149 Pulse Ox 99 Oxygen Delivery Method Room Air Positive well nourished and well developed; Negative for cachectic or contractures General Appearance ED: well developed; Negative for cachectic, contractures, NAD or pallor Nutritional Appearance: Negative for cachectic HEENT Reports moist mucous membranes normocephalic and atraumatic; Negative for trauma or tenderness Eyes PERRL and EOMs intact bilaterally General Eye ED: Negative for pale conjunctiva, scleral icterus or other Neck no lymphadenopathy, supple and no JVD General: Negative for tenderness Resp normal respiratory effort and clear to auscultation bilaterally Effort and Inspection: Negative for retractions Auscultation: Negative for rales, rhonchi or wheezes Cardio regular rate, regular rhythm, S1 normal heart sound, S2 normal heart sound and no murmurs Rate: Negative for bradycardia or tachycardic Rhythm: Negative for abnormal rhythm Heart Sounds: Negative for other GI non-distended and no masses; Negative for non-tender GI Narrative: Suprapubic tenderness only. Inspection: Negative for abdominal distention Auscultation: normoactive bowel sounds Palpation: soft and tender Extremity Negative for normal to inspection General Extremety ED: Yes edema General Extremity: edema Neuro oriented x3, CN's II-XII intact bilaterally, moves all extremities and no focal motor deficits Sensorium / Orientation: alert, oriented to person, oriented to place and oriented to time; Negative for orientation impaired, confused, lethargic or stuporous Motor Exam: strength 5/5 throughout Psych mental status grossly normal Attitude: No agitated Mood & Affect: Negative for depressed, anxious or tearful Thought Process: normal thought process Thought Content: normal thought content Skin General Skin Exam: Negative for jaundice or pallor Lesions: no lesions Rashes: no rashes Trauma: Negative for abrasion or laceration MDM MDM MDM Narrative Medical decision making narrative: 77-year-old with end-stage renal disease but still makes urine. Was unable to urinate today due to urinary retention. Tried to straight cath himself finally had blood clots return. Nurses were attempting to place a Villanueva catheter. They were unsuccessful both with a regular 22 [place]ian Villanueva catheter and a coud? catheter. They were able to enter the urethra but not get past the prostate. They did obtain a bladder scan and it was 457 cc of urine. I spoke to Dr. Sarath Decker on-call for urology who being evaluate the patient and attempt to place Villanueva catheter. Patient will be turned over to the incoming [facility] emergency physician. History & Record Review Discussion w/independent historian: Patient and Family Additional record(s) reviewed:: Prior inpatient record, Prior outpatient record, Prior ED visit and Prior labs Discharge Plan Triage Chief Complaint: Complaint ED Provider: Vinay Gomez Dx/Rx/DC Orders Clinical Impression: Acute urinary retention, History of BPH, History of end stage renal disease Prescriptions: No Action omeprazole 40 mg capsule,delayed release(DR/EC) 40 mg PO DAILY gabapentin 100 mg tablet 200 mg PO QHS (DME) ANDRÉS Ankle Brace Misc See Rx Instructions .Route Qty: 1 0RF Rx Instructions: daily (DME) handicap placard See Rx Instructions .ROUTE .MEDSUPPLY Qty: 1 0RF Rx Instructions: Length of time: 5 years Diagnosis: Impaired physical mobility z74.09 metoprolol tartrate 25 MG tablet 25 mg PO BID Label Comments: Heart medication oxycodone-acetaminophen 5-325 mg tablet 1 tab PO Q8H PRN (Reason: Pain) 30 Days Qty: 90 0RF Primary Care Provider: Catalina Noguera Referrals: Catalina Noguera MD [Primary Care Provider] - Kael Decker MD [Med Staff - Active Staff] - As soon as possible Activity Restrictions/Additional Instructions: Follow-up with Dr. Sarath Decker to be reevaluated and to determine when he will remove your Villanueva catheter. Any problems with the Villanueva catheter such as its not working, not draining or leaking follow-up with his office or return to the emergency department. Disposition Disposition: Home, Self Care
--- NOTE | 2022-11-09 06:48 | ED.RN ---
ATTEMPTED TO PLACE CATHTERX2 WITH ASSIST OF TWO NURSES AND UNABLE. DR MORROW MADE AWARE,PAGE TO DR SHEPHERD.
--- NOTE | 2022-11-09 07:58 | CON.PCM.UR_ITS ---
Assessment & Plan Assessment/Plan (1) BPH (benign prostatic hyperplasia): PLAN: Plan to do cystoscopy and Villanueva placement (2) Acute urinary retention: HPI Consult Data Date of Consult: 11/09/22 HPI Narrative Reason for Consultation: Retention of urine gross hematuria HPI Narrative: REBEKAH REID, is a 77 M who presents to the emergency room he typically self caths to empty his bladder he is on dialysis but still makes plenty of urine last night he was not able to catheterize himself developed retention of urine and could not catheterize himself came to the emergency room and the nursing staff tried a few times carefully to place a catheter but there was still unsuccessful so I was called in. When I saw the patient I tried to catheterize him as well advance an 18 [place]i catheter through the urethra and then somewhere in the prostate the catheter was not getting into the bladder did not force it remove the catheter I tried to place a wire x2 with no success so we will have to do a surgical procedure to place a catheter. [facility] Medical History Abnormal stress echo Anemia Arthritis Back pain BPH (benign prostatic hyperplasia) Cardiology follow-up encounter Chest pain Chronic kidney disease, stage 3 (moderate) Chronic systolic heart failure Claudication Essential hypertension Former smoker Gastric reflux GERD (gastroesophageal reflux disease) Hard of hearing History of CHF (congestive heart failure) History of echocardiogram History of edema History of renal disease History of tobacco use Irregular heart beat Neuropathy Normal stress echocardiogram Obstructive sleep apnea Prediabetes Prostate disease Rheumatoid arthritis Shortness of breath Wears dentures Wears glasses Wears hearing aid Zach's granulomatosis Home Medications metoprolol tartrate 25 mg tablet 25 mg PO BID BP 05/28/18 [History Last Taken 06/25/22] omeprazole 40 mg capsule,delayed release 40 mg PO DAILY stomach 11/04/18 [History Last Taken 01/18/22] gabapentin 100 mg tablet 200 mg PO QHS 08/29/22 [History Last Taken Unknown] handicap placard #1 ea 08/29/22 [Rx Last Taken Unknown] leg brace (ANDRÉS Ankle Brace) #1 ea 08/29/22 [Rx Last Taken Unknown] oxycodone-acetaminophen 5 mg-325 mg tablet 1 tab PO Q8H PRN Pain 30 days #90 tabs 11/04/22 [Rx Last Taken Unknown] Allergy/AdvReac Type Severity Reaction Status Date / Time aspirin AdvReac Severe cannot Verified 08/29/22 09:56 take d/t Zach's Vasculitis Family History Mother CAD (coronary artery disease) Congestive heart failure Father Prostate cancer Lung cancer Brother Colon cancer Sister Colon cancer Grandmother Diabetes Surgical History AV fistula Cataract extraction status H/O arthroscopy of left knee (1988) History of colonoscopy History of endoscopy (01/02/16) History of left heart catheterization (11/12/18) History of prostate biopsy (01/11/14) History of total right hip arthroplasty (02/05/16) Hx of bilateral cataract extraction S/P arthroscopic surgery of left knee (1989) S/P TURP Status post biopsy of kidney (12/2013) Social History household members: spouse housing: house 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 Smoking Status: Former smoker quit date: 07/26/81 pack-years: 19 Electronic Cigarette Use: not used alcohol intake: never substance use type: does not use what type of physical activity do you participate in: none seatbelt use: always do you feel safe at home: Yes ROS Constitutional Constitutional: Denies chills, fever(s) or malaise Eyes Eyes: Denies blurry vision or change in vision ENT HEENT: Reports none Cardiovascular Cardiovascular: Denies chest pain or palpitations Respiratory/Chest Respiratory/Chest: Denies cough or shortness of breath with exertion Gastrointestinal Gastrointestinal: Denies abdominal pain, constipation or diarrhea Musculoskeletal Musculoskeletal: Denies back pain, joint stiffness or joint swelling Integumentary Integumentary: Denies dry skin, jaundice, lesions or rash Neurologic Neurologic: Denies confusion, syncope or weakness Psychiatric Psychiatric: Reports none; Denies anxiety or depression Endocrine Endocrinology: Denies excessive sweating, fatigue or flushing Hematologic/Lymphatic Hematologic/Lymphatic: Denies anemia, easy bleeding or easy bruising Physical Exam Const alert and oriented x3 General Appearance: cooperative HEENT normocephalic, head/scalp atraumatic, EAC's normal and TM's normal bilaterally Eyes PERRL and EOMs intact bilaterally Pupil: sluggish Neck no lymphadenopathy, supple and no JVD General: trachea midline Lymph Lymphatic: no lymphadenopathy noted, lymphedema and lymphadenopathy Resp normal respiratory effort, normal air movement and clear to auscultation bilate rally Cardio regular rate, regular rhythm and peripheral pulses 2+ throughout GI soft to palpation, non-tender and non-distended Narrative: Uncircumcised penis normal Epididymis: Right: Normal and Left: Normal Extremity normal capillary refill and no clubbing, cyanosis or edema General Extremity: no tenderness to palpation of joints or extremities Skin no rashes or lesions noted General Skin Exam: turgor normal Lesions: no lesions Rashes: no rashes Neuro CN's II-XII intact bilaterally Speech: speech normal Motor Exam: strength 5/5 throughout; Negative for general weakness Psych thought process normal, cooperative and affect normal Appearance: appropriate
[2022-11-09] MEDS: oxyCODONE 5 MG Tablet PO (08:01)
--- NOTE | 2022-11-09 08:01 | OP.PCM_ITS ---
Report of Operation Date of Procedure: 11/09/22 Pre-Operative Diagnosis: BPH retention of urine difficult Villanueva Post-Operative Diagnosis: The same Surgery/Procedure Performed:: Cystoscopy and Villanueva placement Description of Surgical Findings:: Penis and testicles were prepped and draped in usual sterile fashion went through the urethra with a flexible cystoscope then along the entire urethra channel there was a significant amount of blood difficult to see got to the sphincter and turned up to the prostate and then I was able to navigate through the prostate again is very bloody very difficult to see but finally got into the bladder then through the cystoscope advanced a wire backloaded the scope off the wire and then over the wire I placed a 16 [place] tip catheter into the bladder he had an immediate return of over a liter of urine and a significant relief of pain and the urine was fairly bloody. He will to go home with a catheter prior leave this in 2 to 3 weeks let it heal up he can follow-up in my office to remove the catheter and resume self-catheterization. Surgeon: Kael Decker Type of Anesthesia: General Drains: 16 [place] catheter Admit VTE Documentation VTE Present on Admission: No VTE Mechan Device Prophylaxis: SCD's VTE Pharm Prophylaxis ordered?: No
[2022-11-09 08:10] VITALS: RESP 20
[2022-11-09] MEDS: Cephalexin 250 MG Capsule 500 MG PO (08:27)
== END 2022-11-09 08:31 | disposition home or self-care (01) ==
LOC: ED 06:58
PROVIDERS: Emergency Provider Emergency Medicine; PCP Internal Medicine; Visit Provider Emergency Medicine
DX: R33.9 Retention of urine, unspecified (principal); I13.2 Hypertensive heart and chronic kidney disease with heart failure and with stage 5 chronic kidney disease, or end stage renal disease; Z99.2 Dependence on renal dialysis; I50.22 Chronic systolic (congestive) heart failure; N18.6 End stage renal disease; Z87.891 Personal history of nicotine dependence; N40.1 Benign prostatic hyperplasia with lower urinary tract symptoms
CPT/HCPCS: 51702; 99284; J7030

== ENCOUNTER 2022-11-27 03:49 | Emergency (ER) | payer MEDICARE, OTHER, SELFPAY ==
[2022-11-27 03:50] VITALS: BP 151/88; PULSE 89; RESP 20; TEMP 36.4; O2SAT 93; BMI 33.2
--- NOTE | 2022-11-27 06:04 | EX.ED.DYSGE1 ---
HPI History of Present Illness Chief Complaint: Complaint Informant: patient and spouse/S.O. Narrative Narrative: Patient is a 77-year-old male with past medical history of end-stage renal disease on dialysis however he still makes urine. He also has history of systolic heart failure hypertension and Zach's granulomatosis. Patient was seen in the ER a few weeks ago secondary to acute urinary retention and had a Villanueva catheter placed. He had the catheter kept in since that time and it was removed 2 days ago. Patient states that after the catheter was removed he has been able to urinate small amounts but he does not feel he has been completely emptying his bladder. He reports that he believes he last had a small amount of urination last night November 26 around 9 PM. However since that time he has been able to sleep as he has had increasing abdominal discomfort and pain and difficulty urinating and therefore comes in for evaluation [facility] Medical History Abnormal stress echo Anemia Arthritis Back pain BPH (benign prostatic hyperplasia) Cardiology follow-up encounter Chest pain Chronic kidney disease, stage 3 (moderate) Chronic systolic heart failure Claudication Essential hypertension Former smoker Gastric reflux GERD (gastroesophageal reflux disease) Hard of hearing History of CHF (congestive heart failure) History of echocardiogram History of edema History of renal disease History of tobacco use Irregular heart beat Neuropathy Normal stress echocardiogram Obstructive sleep apnea Prediabetes Prostate disease Rheumatoid arthritis Shortness of breath Wears dentures Wears glasses Wears hearing aid Zach's granulomatosis Home Medications metoprolol tartrate 25 mg tablet 25 mg PO BID BP 05/28/18 [History Last Taken 06/25/22] omeprazole 40 mg capsule,delayed release 40 mg PO DAILY stomach 11/04/18 [History Last Taken 01/18/22] gabapentin 100 mg tablet 200 mg PO QHS 08/29/22 [History Last Taken Unknown] handicap placard #1 ea 08/29/22 [Rx Last Taken Unknown] leg brace (ANDRÉS Ankle Brace) #1 ea 08/29/22 [Rx Last Taken Unknown] oxycodone-acetaminophen 5 mg-325 mg tablet 1 tab PO Q8H PRN Pain 30 days #90 tabs 11/04/22 [Rx Last Taken Unknown] cephalexin 500 mg capsule 500 mg PO Q12 #14 CAPSULES 11/09/22 [Rx Last Taken Unknown] Allergy/AdvReac Type Severity Reaction Status Date / Time aspirin AdvReac Severe cannot Verified 11/27/22 03:50 take d/t Zach's Vasculitis Family History Mother CAD (coronary artery disease) Congestive heart failure Father Prostate cancer Lung cancer Brother Colon cancer Sister Colon cancer Grandmother Diabetes Surgical History AV fistula Cataract extraction status H/O arthroscopy of left knee (1988) History of colonoscopy History of endoscopy (01/02/16) History of left heart catheterization (11/12/18) History of prostate biopsy (01/11/14) History of total right hip arthroplasty (02/05/16) Hx of bilateral cataract extraction S/P arthroscopic surgery of left knee (1989) S/P TURP Status post biopsy of kidney (12/2013) Social History household members: spouse housing: house 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 status: 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 Smoking Status: Former smoker quit date: 07/26/81 pack-years: 19 Electronic Cigarette Use: not used alcohol intake: never substance use type: does not use what type of physical activity do you participate in: none seatbelt use: always do you feel safe at home: Yes ROS ROS ED Constitutional Constitutional ED: Denies chills or fever(s) ENT ENT ED: Denies sore throat Cardiovascular Cardiovascular: Denies chest pain Respiratory/Chest Respiratory/Chest: Denies cough or dyspnea Gastrointestinal Gastrointestinal: Reports abdominal pain; Denies diarrhea, nausea or vomiting Genitourinary Genitourinary ED: Reports hematuria and other Details: Positive urinary retention Musculoskeletal Musculoskeletal: Denies myalgias Integumentary Denies rash Neurologic Neurologic: Denies headache(s) Hematologic/Lymphatic Hematologic/Lymphatic: Denies easy bleeding or easy bruising EXAM Physical Exam Const Vital Signs: 11/27/22 03:50 Temperature 97.6 F L Temperature Source Temporal Pulse Rate 89 Respiratory Rate 20 H Blood Pressure 151/88 H Blood Pressure Mean 109 Pulse Ox 93 Positive well nourished, well developed and obese General Appearance ED: well developed Nutritional Appearance: obese HEENT Reports moist mucous membranes Eyes PERRL and EOMs intact bilaterally General Eye ED: Negative for scleral icterus Neck supple Resp normal respiratory effort and clear to auscultation bilaterally Cardio regular rate and regular rhythm GI GI Narrative: In the suprapubic/lower midline region there is organomegaly present consistent with a distended bladder. There is pain on palpation at the site. The upper abdomen is soft and nondistended with normal active bowel sounds. No pulsatile mass Auscultation: normoactive bowel sounds Palpation: soft Narrative: No testicular swelling or masses. No obvious bleeding at the urethral meatus. No surrounding soft tissue changes to suggest Cosme's gangrene Extremity normal to inspection Neuro oriented x3 and CN's II-XII intact bilaterally Sensorium / Orientation: alert Psych mental status grossly normal Skin no rashes or lesions noted MDM MDM MDM Narrative Medical decision making narrative: Patient presented to the ER afebrile with a history and exam consistent with recurrent urinary retention. Secondary to this a Villanueva catheter was placed. Upon inserting the Villanueva catheter there is a large amount of blood and clots present most likely the reason for the patient's recurrent retention and discomfort. The patient underwent continuous irrigation secondary to this. With irrigation the urine cleared. After irrigation was completed the patient was watched for another 15 to 20 minutes. There was still production of urine however it now was returning to blood-tinged discoloration but was translucent in nature indicating old blood and not an acute bleed. As its only been roughly 9 hours since the patient's last urination I felt no need to check laboratory studies as my concern for infection is low and as patient already has end-stage renal disease on dialysis kidney function changes would not change treatment. The patient denies any blood thinner use other than heparin injections after dialysis. At this time patient has no signs of recurrent obstruction and therefore the Villanueva catheter will be kept in place. This plan of care was discussed with urology on-call Dr. Decker. He has seen the patient in the past and he does agree with this plan of care and will follow him as an outpatient. He reports that the patient had a stricture at his initial visit and that he fell keeping the catheter in from was 10 days would be sufficient for healing but that as bleeding returned leading to recurrent obstruction but the catheter must stay in longer in order for healing to take place History & Record Review Discussion w/independent historian: Patient and Significant other Discharge Plan Triage Chief Complaint: Complaint ED Provider: Beau Cardenas Dx/Rx/DC Orders Clinical Impression: Acute urinary retention, Zach's granulomatosis, Essential hypertension, End-stage renal disease needing dialysis Prescriptions: No Action omeprazole 40 mg capsule,delayed release(DR/EC) 40 mg PO DAILY gabapentin 100 mg tablet 200 mg PO QHS (DME) ANDR[employer]S Ankle Brace Misc See Rx Instructions .Route Qty: 1 0RF Rx Instructions: daily (DME) handicap placard See Rx Instructions .ROUTE .MEDSUPPLY Qty: 1 0RF Rx Instructions: Length of time: 5 years Diagnosis: Impaired physical mobility z74.09 metoprolol tartrate 25 MG tablet 25 mg PO BID Patient Comments: Heart medication cephalexin 500 mg capsule 500 mg PO Q12 Qty: 14 0RF oxycodone-acetaminophen 5-325 mg tablet 1 tab PO Q8H PRN (Reason: Pain) 30 Days Qty: 90 0RF Primary Care Provider: Catalina Noguera Referrals: Catalina Noguera MD [Primary Care Provider] - Kael Decker MD [Med Staff - Active Staff] - Activity Restrictions/Additional Instructions: Please contact Dr. Decker's office to schedule a repeat evaluation and if you have any worsening of symptoms or return of obstruction return for repeat evaluation Disposition Disposition: Home, Self Care
[2022-11-27 06:40] VITALS: BP 134/71; PULSE 65; RESP 18; O2SAT 99
== END 2022-11-27 06:43 | disposition home or self-care (01) ==
PROVIDERS: Emergency Provider Emergency Medicine; PCP Internal Medicine; Visit Provider Emergency Medicine
DX: R33.9 Retention of urine, unspecified (principal); I13.2 Hypertensive heart and chronic kidney disease with heart failure and with stage 5 chronic kidney disease, or end stage renal disease; Z99.2 Dependence on renal dialysis; M31.30 Wegener's granulomatosis without renal involvement; I50.22 Chronic systolic (congestive) heart failure; N18.6 End stage renal disease; Z87.891 Personal history of nicotine dependence; R31.9 Hematuria, unspecified; E66.9 Obesity, unspecified
CPT/HCPCS: 51702; 99283; A4216

== ENCOUNTER → 2022-11-28 | Outpatient (CLI) | payer MEDICARE, OTHER, SELFPAY ==
[2022-11-28 11:10] LABS: Bacteria 0 SEEN /hpf (None Seen); Mucous, Urine 0 SEEN /hpf (<or=2+)
[2022-11-28 12:33] LABS: Basophil# 0.05 X10^3/uL; Basophil% 0.7 % (0-1); Eosinophil# 0.16 X10^3/uL; Eosinophils% 2.3 % (0-5); Hematocrit 35.5 % (40-54); Hemoglobin 11.1 g/dL (13.0-16.5); Mean Corp Hgb Conc 31.3 g/dL (32-36); Mean Corpuscular Hgb 30.4 pg (27.0-32.0); Mean Corpuscular Volume 97.3 fL (80-94); Mean Platelet Vol. 9.3 fl (6.2-12.0); Monocyte# 0.59 X10^3/uL; Monocyte% 8.6 % (0-10); NRBC Flagged by Analyzer 0 % (0-5); Neutrophil # 4.95 X10^3/uL (2.7-7.7); Platelet Count 163 K/mm3 (150-450); RBC Distribution Width CV 13.9 % (11.6-14.6); RBC Distribution Width SD 49.6 fl (35.1-43.9); Red Blood Count 3.65 M/mm3 (4.6-6.2); White Blood Count 6.9 K/mm3 (4.4-11.0)
[2022-11-28 12:47] LABS: Color, Urine Amber (Yellow); Glucose, Dipstick Normal (Normal); Ketone-Dipstick 5 mg/dl (Negative); Leukocyte Esterase-Dipstick 500 /ul (Negative); Nitrite-Dipstick Negative (Negative); Occult Blood-Urine 250 /ul (Negative); Protein-Dipstick 500 mg/dl (Negative); Specific Gravity, Urine 1.015 (1.002-1.030); Urine Bilirubin Dipstick Negative (Negative); Urine Clarity Cloudy (Clear); Urine Urobilinogen Normal (Normal); Urine pH 6.5 (5.0 - 8.0)
[2022-11-28 13:03] LABS: White Blood Cells >100 SEEN /hpf (0-5)
[2022-11-28 13:04] LABS: Red Blood Cells-Urine > 100 SEEN /hpf (0-5); Squamous Epithelial Cells - UA 5-10 SEEN /hpf (0-5)
[2022-11-28 13:15] LABS: ALB/GLOB Ratio 1.1 RATIO (0.9-2.4); AST(SGOT) 16 U/L (15-37); Alanine Aminotransfer ALT/SGPT 16 U/L (16-61); Albumin, Serum 3.4 g/dL (3.2-5.0); Alkaline Phosphatase 86 U/L (45-117); Anion Gap 6 (5-15); BUN 41 mg/dL (7-18); BUN/Creat Ratio 8.3 RATIO (10-20); Calcium,Total 8.9 mg/dL (8.5-10.1); Chloride 101 mmol/L (98-107); Cholesterol 149 mg/dL (200); Creatinine, Serum 4.96 mg/dL (0.70-1.30); EST Glomerular Filtration Rate 12 mL/min (>60); Est Glom Filt Rate - Afr Amer 15 mL/min (>60); Glucose 88 mg/dL (74-106); High Density Lipoprotein 52 mg/dL; Potassium 4.9 mmol/L (3.5-5.1); Protein, Total 6.4 g/dL (6.4-8.2); Sodium Level 134 mmol/L (136-145); Triglycerides 98 mg/dL; Very Low Density Lipoprotein 20 mg/dL (5-40)
== END | disposition home or self-care (01) ==
LOC: BIMLAB 10:38
PROVIDERS: PCP Internal Medicine; Referring Provider Internal Medicine; Visit Provider Internal Medicine
DX: R33.8 Other retention of urine (principal); M31.31 Wegener's granulomatosis with renal involvement; N18.4 Chronic kidney disease, stage 4 (severe)
CPT/HCPCS: 36415; 80053; 80061; 81001; 85025; 87077; 87086; 87088; 87186

== ENCOUNTER 2023-02-25 17:56 | Emergency (ER) | payer MEDICARE, OTHER, SELFPAY ==
[2023-02-25 17:56] VITALS: BP 155/75; PULSE 96; RESP 16; TEMP 36.1; O2SAT 98; BMI 32.2
--- NOTE | 2023-02-25 20:26 | CT_ITS ---
STUDY: CT ABDOMEN AND PELVIS WITH CONTRAST REASON FOR EXAM: Male, 77 years old. Abdominal pain RADIATION DOSAGE (If Supplied By Facility): CTDIvol = ( 21.82 ) mGy, DLP = ( 1481.19 ) mGycm TECHNIQUE: IV 100mL Isovue-370 was administered. Transaxial images were obtained from the dome of the diaphragm to the symphysis pubis. Multiplanar coronal and sagittal images were reformatted. Individualized Dose Optimization Techniques Were Used For This CT. COMPARISON: Prior study dated: 05/26/2021. FINDINGS: The visualized lung bases are unremarkable. The visualized portions of the heart are within normal limits. Normal liver. Contracted gallbladder without evidence of gallstones There are multiple benign calcified granulomata of the spleen. 5 mm low-density in the spleen could represent cyst. There is diffuse atrophy of the pancreas. 1.1 cm low-density nodule adjacent to the body of the pancreas essentially unchanged. Similar 1.2 cm low-density adjacent to the pancreas again unchanged. Normal bilateral adrenal glands. Somewhat atrophic kidneys. Stable 3.9 cm simple cyst in the left kidney for which no further follow-up exam is needed. No evidence of hydronephrosis. Fluid-filled antrum and proximal duodenum. Normal caliber small bowel loops. Diverticulosis of the ethmoid: Without evidence of acute diverticulitis. History distention. 3 There is diffuse atherosclerotic calcification of the abdominal aorta with elongation and tortuosity, but without a demonstrated aneurysm. No retroperitoneal adenopathy. Circumferential thickening of the bladder wall. Bladder however is not well distended. There is enlargement of the prostate gland. Drainage catheter entering the abdomen just right to the umbilicus and extends to the pelvic region. There is a small umbilical hernia containing fat. Severe compression fracture of L1 vertebra unchanged. Degenerative changes. CT/Abdomen/Pelvis W IV Cont ONLY IMPRESSION: 1. Nonspecific fluid-filled gastric antrum and proximal duodenum could reflect gastritis and duodenitis. Endoscopy might be of value. 2. Diverticulosis without evidence of acute diverticulitis. 3. Circumferential thickening of the bladder wall could be due to underdistention. Cystitis or chronic bladder outlet obstruction cannot be excluded. 4. Enlarged prostate. Correlation with PSA level is recommended. 5. Low-density lesion/cysts adjacent to the body and head of the pancreas essentially unchanged prior exam. Electronically Signed: Pollo Flowers MD at 21:45 EDT ,
--- NOTE | 2023-02-25 20:30 | EX.ED.DYSGE1 ---
HPI History of Present Illness Chief Complaint: Constipation Narrative Narrative: 77-year-old male on home peritoneal dialysis presenting to the emergency room with abdominal pain. Patient states that on Friday night he had diarrhea. He then developed a gradual diffuse abdominal pain that becomes sharp around his umbilicus particularly with breathing. No fevers. He states he did dialysis today and did not notice really anything with the fluid other than it was at 3800 cc instead of 3600 cc. He states he did have a bowel movement on Friday or today. PFSH [facility] Medical History Abnormal stress echo Anemia Arthritis Back pain BPH (benign prostatic hyperplasia) Cardiology follow-up encounter Chest pain Chronic kidney disease, stage 3 (moderate) Chronic systolic heart failure Claudication Dialysis patient Essential hypertension Former smoker Gastric reflux GERD (gastroesophageal reflux disease) Hard of hearing History of CHF (congestive heart failure) History of echocardiogram History of edema History of renal disease History of tobacco use Irregular heart beat Neuropathy Normal stress echocardiogram Obstructive sleep apnea Prediabetes Prostate disease Rheumatoid arthritis Shortness of breath Wears dentures Wears glasses Wears hearing aid Zach's granulomatosis Home Medications omeprazole 40 mg capsule,delayed release 40 mg PO DAILY stomach 11/04/18 [History Last Taken 01/18/22] gabapentin 100 mg tablet 200 mg PO QHS 08/29/22 [History Last Taken Unknown] handicap placard #1 ea 08/29/22 [Rx Last Taken Unknown] oxybutynin chloride 10 mg tablet,extended release 24 hr 10 mg PO DAILY 11/28/22 [History Last Taken Unknown] metoprolol tartrate 25 mg tablet 25 mg PO DAILY BP 01/14/23 [History Last Taken Unknown] oxycodone-acetaminophen 5 mg-325 mg tablet (Percocet) 1 tab PO Q8H PRN pain 30 days #90 tabs 02/17/23 [Rx Last Taken Unknown] Allergy/AdvReac Type Severity Reaction Status Date / Time aspirin AdvReac Severe cannot Verified 02/25/23 17:56 take d/t Zach's Vasculitis Family History Mother CAD (coronary artery disease) Congestive heart failure Father Prostate cancer Lung cancer Brother Colon cancer Sister Colon cancer Grandmother Diabetes Surgical History AV fistula Cataract extraction status H/O arthroscopy of left knee (1988) History of colonoscopy History of endoscopy (01/02/16) History of left heart catheterization (11/12/18) History of prostate biopsy (01/11/14) History of total right hip arthroplasty (02/05/16) Hx of bilateral cataract extraction S/P arthroscopic surgery of left knee (1989) S/P TURP Status post biopsy of kidney (12/2013) Social History household members: spouse housing: house 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 Smoking Status: Former smoker quit date: 07/26/81 pack-years: 19 Electronic Cigarette Use: not used alcohol intake: never substance use type: does not use what type of physical activity do you participate in: none seatbelt use: always do you feel safe at home: Yes ROS ROS ED Constitutional Constitutional ED: Denies chills, fever(s) or weight loss Eyes Eyes: Denies change in vision or diplopia ENT ENT ED: Denies ear pain, rhinorrhea or sore throat Cardiovascular Cardiovascular: Denies chest pain, orthopnea, palpitations or racing heartbeat Respiratory/Chest Respiratory/Chest: Denies cough, dyspnea or orthopnea Gastrointestinal Gastrointestinal: Reports abdominal pain, constipation and diarrhea; Denies nausea or vomiting Genitourinary Genitourinary ED: Denies dysuria, hematuria or urinary frequency Musculoskeletal Musculoskeletal: Denies arthralgias or myalgias Integumentary Denies abscess or rash Neurologic Neurologic: Denies headache(s) or weakness Psychiatric Psychiatric: Denies anxiety, depression, suicidal ideation or suicidal thoughts Endocrine Endocrinology: Denies polydipsia, polyphagia or polyuria Allergic/Immunologic Allergic/Immunologic ED: Denies mouth swelling, tongue swelling or urticaria EXAM Physical Exam Const Vital Signs: 02/25/23 17:56 Temperature 97 F L Temperature Source Temporal Pulse Rate 96 Respiratory Rate 16 Blood Pressure 155/75 H Blood Pressure Mean 101 Pulse Ox 98 Positive well nourished and well developed General Appearance ED: well developed HEENT Reports normocephalic, head/scalp atraumatic and moist mucous membranes Eyes PERRL and EOMs intact bilaterally Neck no lymphadenopathy, supple and no JVD Resp normal respiratory effort and clear to auscultation bilaterally Cardio regular rate, regular rhythm and no murmurs GI Inspection: Negative for abdominal distention Auscultation: normoactive bowel sounds Palpation: soft and tender epigastric, LUQ, RUQ and periumbilical Back/Spine no CVA tenderness and normal ROM Extremity normal to inspection General Extremety ED: Negative for edema General Extremity: Negative for edema Neuro oriented x3 and CN's II-XII intact bilaterally Sensorium / Orientation: alert Motor Exam: strength 5/5 throughout Psych mental status grossly normal Mood & Affect: Negative for depressed or tearful Skin no rashes or lesions noted and no wounds MDM MDM MDM Narrative Medical decision making narrative: White count is normal at 5.6. Hemoglobin 11.8. Creatinine 3.14 which is chronic. CO2 of 29. Lactic acid is normal at 1. Cyst tender when he 5 white cells no bacteria negative nitrates. Liver enzymes are within normal limits and lipase is normal at 16. CT of the abdomen pelvis with IV contrast was obtained. This demonstrates no obvious bowel obstruction. Nonspecific fluid-filled gastric antrum and proximal duodenum which could reflect gastritis and duodenitis. Patient received a GI cocktail. He achieved no significant change. I reevaluated the patient and asked him to again take me through his story. This time he is pointing to his epigastrium and radiating down to the right into the left as the area that hurts particularly with bending forward and deep breathing. The abdomen is soft. It is tender but without rebound. Based on the location of pain and the exam with lack of fever normal white count normal lactic acid I doubt that this is acute peritonitis. Lab Data Attestation: I reviewed the patient's lab results. Labs: Laboratory Results - last 24 hr 02/25/23 20:55 WBC 5.6 RBC 3.67 L Hgb 11.8 L Hct 35.6 L MCV 97.0 H MCH 32.2 H MCHC 33.1 RDW Std Deviation 48.9 H RDW Coeff of Misael 13.7 Plt Count 120 L MPV 9.3 Immature Gran % (Auto) 0.400 Neut % (Auto) 78.8 H Lymph % (Auto) 12.[address] [place] % (Auto) 6.6 Eos % (Auto) 1.4 Baso % (Auto) 0.4 Absolute Neuts (auto) 4.4 Absolute Lymphs (auto) 0.69 L Nucleated RBC % 0 Sodium 137 Potassium 4.1 Chloride 105 Carbon Dioxide 29.0 Anion Gap 3 L BUN 31 H Creatinine 3.14 H Estim Creat Clear Calc 19.36 Est GFR (MDRD) Af Amer 25 L Est GFR (MDRD) Non-Af 21 L BUN/Creatinine Ratio 9.9 L Glucose 122 H Lactic Acid 1.0 Calcium 8.4 L Total Bilirubin 0.40 Direct Bilirubin 0.22 AST 22 ALT 28 Alkaline Phosphatase 114 Total Protein 5.3 L Albumin 2.8 L Globulin 2.5 Lipase 16 Urine Color Yellow Urine Clarity Clear Urine pH 7.0 Ur Specific [place] 1.010 Urine Protein 30 H Urine Glucose (UA) 50 H Urine Ketones Negative Urine Occult Blood 10 H Urine Nitrite Negative Urine Bilirubin Negative Urine Urobilinogen Normal Ur Leukocyte Esterase 100 H Urine RBC 0-5 SEEN Urine WBC 10-25 SEEN Ur Squamous Epith Cells 0 SEEN Urine Bacteria 0 SEEN Urine Mucus 0 SEEN Radiography Diagnostic Testing: Clinical Impression(s) from Imaging Studies Abdomen/Pelvis CT 02/25/23 20:26 IMPRESSION: 1. Nonspecific fluid-filled gastric antrum and proximal duodenum could reflect gastritis and duodenitis. Endoscopy might be of value. 2. Diverticulosis without evidence of acute diverticulitis. 3. Circumferential thickening of the bladder wall could be due to underdistention. Cystitis or chronic bladder outlet obstruction cannot be excluded. 4. Enlarged prostate. Correlation with PSA level is recommended. 5. Low-density lesion/cysts adjacent to the body and head of the pancreas essentially unchanged prior exam. Electronically Signed: Pollo Flowers MD at 21:45 EDT , Discharge Plan Triage Chief Complaint: Constipation ED Provider: Louie Aguilar Dx/Rx/DC Orders Clinical Impression: Peritoneal dialysis status, Abdominal pain Instructions: Abdominal Pain Prescriptions: No Action omeprazole 40 mg capsule,delayed release(DR/EC) 40 mg PO DAILY gabapentin 100 mg tablet 200 mg PO QHS (DME) handicap placard See Rx Instructions .ROUTE .MEDSUPPLY Qty: 1 0RF Rx Instructions: Length of time: 5 years Diagnosis: Impaired physical mobility z74.09 oxybutynin chloride 10 mg tablet extended release 24hr 10 mg PO DAILY metoprolol tartrate 25 mg tablet 25 mg PO DAILY Patient Comments: Heart medication oxycodone-acetaminophen [Percocet] 5-325 mg tablet 1 tab PO Q8H PRN (Reason: pain) 30 Days Qty: 90 0RF Primary Care Provider: Catalina Noguera Referrals: Catalina Noguera MD [Primary Care Provider] - 1-2 Days if not improving Activity Restrictions/Additional Instructions: Please monitor for any changes in the pain. Monitor for fever. At this time I do not see an obvious cause for your pain. Please continue to monitor return if any concerns Disposition Disposition: Home, Self Care
[2023-02-25 21:05] LABS: Bacteria 0 SEEN /hpf (None Seen); Mucous, Urine 0 SEEN /hpf (<or=2+); Squamous Epithelial Cells - UA 0 SEEN /hpf (0-5)
[2023-02-25 21:09] LABS: Absolute Lymphocyte Count 0.69 X10^3/uL (0.83-4.51); Absolute Neutrophil Count 4.4 X10^3/uL (2.0-7.7); Basophil# 0.02 X10^3/uL; Basophil% 0.4 % (0-1); Eosinophil# 0.08 X10^3/uL; Eosinophils% 1.4 % (0-5); Hematocrit 35.6 % (40-54); Hemoglobin 11.8 g/dL (13.0-16.5); Lymphocyte # 0.69 X10^3/ul (0.83-4.51); Lymphocyte % 12.4 % (19-41); Mean Corp Hgb Conc 33.1 g/dL (32-36); Mean Corpuscular Hgb 32.2 pg (27.0-32.0); Mean Platelet Vol. 9.3 fl (6.2-12.0); Monocyte# 0.37 X10^3/uL; Monocyte% 6.6 % (0-10); NRBC Flagged by Analyzer 0 % (0-5); Neutrophil % 78.8 % (47-70); Platelet Count 120 K/mm3 (150-450); RBC Distribution Width CV 13.7 % (11.6-14.6); RBC Distribution Width SD 48.9 fl (35.1-43.9); Red Blood Count 3.67 M/mm3 (4.6-6.2); White Blood Count 5.6 K/mm3 (4.4-11.0)
[2023-02-25 21:10] LABS: Color, Urine Yellow (Yellow); Glucose, Dipstick 50 mg/dl (Normal); Ketone-Dipstick Negative (Negative); Leukocyte Esterase-Dipstick 100 /ul (Negative); Nitrite-Dipstick Negative (Negative); Occult Blood-Urine 10 /ul (Negative); Protein-Dipstick 30 mg/dl (Negative); Urine Bilirubin Dipstick Negative (Negative); Urine Clarity Clear (Clear); Urine Urobilinogen Normal (Normal)
[2023-02-25 21:17] LABS: Red Blood Cells-Urine 0-5 SEEN /hpf (0-5); White Blood Cells 10-25 SEEN /hpf (0-5)
[2023-02-25 21:25] LABS: AST(SGOT) 22 U/L (15-37); Alanine Aminotransfer ALT/SGPT 28 U/L (16-61); Albumin, Serum 2.8 g/dL (3.2-5.0); Alkaline Phosphatase 114 U/L (45-117); Anion Gap 3 (5-15); BUN 31 mg/dL (7-18); BUN/Creat Ratio 9.9 RATIO (10-20); Bilirubin, Direct 0.22 mg/dL (0.00-0.30); Calcium,Total 8.4 mg/dL (8.5-10.1); Chloride 105 mmol/L (98-107); Creatinine, Serum 3.14 mg/dL (0.70-1.30); EST Glomerular Filtration Rate 21 mL/min (>60); Est Glom Filt Rate - Afr Amer 25 mL/min (>60); Estimated Creatinine Clearance 19.36 ml/min; Globulin 2.5 g/dL (2.2-4.2); Glucose 122 mg/dL (74-106); Lipase 16 U/L (13-75); Potassium 4.1 mmol/L (3.5-5.1); Protein, Total 5.3 g/dL (6.4-8.2); Sodium Level 137 mmol/L (136-145)
[2023-02-25] MEDS: Mag Hydrox/Al Hydrox/Simeth 30 ML UDC PO (23:03)
[2023-02-25] MEDS: Famotidine 20 MG Tablet 40 MG PO (23:50)
[2023-02-25] MEDS: HYDROcodone Bitartrate/Apap 5/325 Tablet PO (23:50)
== END 2023-02-25 23:56 | disposition home or self-care (01) ==
PROVIDERS: Emergency Provider Emergency Medicine; PCP Internal Medicine; Visit Provider Emergency Medicine
DX: R10.9 Unspecified abdominal pain (principal); Z99.2 Dependence on renal dialysis; I50.22 Chronic systolic (congestive) heart failure; I13.0 Hypertensive heart and chronic kidney disease with heart failure and stage 1 through stage 4 chronic kidney disease, or unspecified chronic kidney disease; N18.30 Chronic kidney disease, stage 3 unspecified; Z87.891 Personal history of nicotine dependence
CPT/HCPCS: 99283; 74177; 80048; 80076; 81001; 83605; 83690; 85025; Q9967; A4216

== ENCOUNTER 2023-02-27 04:08 | Inpatient (IN) | payer MEDICARE, OTHER, SELFPAY ==
[2023-02-27] VITALS (9 sets, daily range): BP systolic 123–189; BP diastolic 62–101; PULSE 79–126; RESP 16–19; TEMP 36.8–37.6; O2SAT 96–99; BMI 33.3; BMI 32.0
--- NOTE | 2023-02-27 04:26 | EKG12_ITS ---
Test Reason : DYSRHYTHMIA Blood Pressure : / mmHG Vent. Rate : 118 BPM Atrial Rate : 118 BPM P-R Int : 172 ms QRS Dur : 066 ms QT Int : 296 ms P-R-T Axes : 065 038 056 degrees QTc Int : 414 ms Sinus tachycardia with occasional Premature ventricular complexes Otherwise normal ECG Confirmed by AFSHAN SUMMERS, DAVID ([id number]), digital editor MATT ECKERT ([id number]) on 03/03/2023 2:03:58 PM Referred By: Confirmed By:DAVID CAVANAUGH MD
--- NOTE | 2023-02-27 04:26 | RAD_ITS ---
EXAM: XR CHEST, 1 VIEW CLINICAL INDICATION: weakness TECHNIQUE: Frontal view of the chest. COMPARISON: Previous chest radiographs of 01/18/2022 and 05/26/2021. FINDINGS: LUNGS AND PLEURAL SPACES: Unremarkable. No consolidation or edema. No pneumothorax. No effusion. HEART: Upper normal heart size. Normal pulmonary vasculature. MEDIASTINUM: Minimal elongation of the thoracic aorta. BONES/JOINTS: Thoracic degenerative spurring. No acute osseous abnormality. SOFT TISSUES: Unremarkable. RAD/Chest 1 View (Portable) IMPRESSION: No significant interval change. No radiographic evidence of acute cardiopulmonary disease. Electronically Signed: Darien Cole MD at 5:28 EDT ,
--- NOTE | 2023-02-27 04:29 | CT_ITS ---
EXAM: CT HEAD WITHOUT INTRAVENOUS CONTRAST CLINICAL INDICATION: confusion TECHNIQUE: Multiple axial images were obtained of the head without intravenous contrast. This CT exam was performed using one or more of the following dose reduction techniques: automated exposure control, adjustment of the mA and/or kV according to patient size, and/or use of iterative reconstruction technique. RADIATION DOSE: Total DLP: 779.24 mGy-cm. COMPARISON: No relevant prior studies available. FINDINGS: BRAIN AND EXTRA-AXIAL SPACES : Mild age-related atrophy is present with prominence of cortical sulci, basal cisterns, sylvian fissures and ventricles. Minimal chronic small vessel ischemic changes noted within the deep white matter tracts. Prominent perivascular space noted within the inferior right basal ganglia. No intra- or extra-axial hemorrhage. No intracranial mass or mass effect. Posterior fossa structures are unremarkable. Bates-white matter differentiation is preserved. BONES/JOINTS: Unremarkable. No discrete lytic or blastic abnormalities. VASCULATURE: Atherosclerotic vascular calcification is present. The middle cerebral arteries are not hyperdense. SINUSES: : Minimal mucosal thickening at the base of the maxillary antra, left greater than right. No paranasal sinus air-fluid levels. MASTOID AIR CELLS: Unremarkable. Clear. ORBITS: Visualized globes, extraocular muscles, optic nerves and retrobulbar fat appear unremarkable. CT/Brain/Head without Contrast IMPRESSION: 1. Mild age-related atrophy. 2. Minimal maxillary sinus mucosal disease. 3. No hemorrhage or other acute intracranial abnormality. Electronically Signed: Darien Cole MD at 5:32 EDT ,
--- NOTE | 2023-02-27 04:30 | EX.ED.DYSGE1 ---
HPI History of Present Illness Chief Complaint: Syncope Informant: patient and family Narrative Narrative: Patient presenting after waking up on the floor after apparently falling out of bed in the middle of the night. He denies having any pain or injury. Family is concerned that he is a little disoriented from his normal and complaining of abdominal pain which is their main concern. They present at 4 AM. Patient states he started having abdominal pain last night at 7 PM when he injected his peritoneal dialysis fluid. They called the kidney nurse who advised them to withdraw all the fluid, he states that the pain improved then but has not gone away. It is still there now but not as bad. Apparently this has been off-and-on for the past 3 or [address] Pacheco for nephrology. Has been on peritoneal dialysis since July, was doing hemodialysis before that. At 1 point patient states that the peritoneal dialysis fluid, when he withdraws it, looks similar to usual. At another point, he states it was cloudy. The family does not know for sure. Patient denies any other symptoms recently. [facility] Medical History Abnormal stress echo Anemia Arthritis Back pain BPH (benign prostatic hyperplasia) Cardiology follow-up encounter Chest pain Chronic kidney disease, stage 3 (moderate) Chronic systolic heart failure Claudication Dialysis patient Essential hypertension Former smoker Gastric reflux GERD (gastroesophageal reflux disease) Hard of hearing History of CHF (congestive heart failure) History of echocardiogram History of edema History of renal disease History of tobacco use Irregular heart beat Neuropathy Normal stress echocardiogram Obstructive sleep apnea Prediabetes Prostate disease Rheumatoid arthritis Shortness of breath Wears dentures Wears glasses Wears hearing aid Zach's granulomatosis Home Medications omeprazole 40 mg capsule,delayed release 40 mg PO DAILY stomach 11/04/18 [History Last Taken 01/18/22] gabapentin 100 mg tablet 200 mg PO QHS 08/29/22 [History Last Taken Unknown] handicap placard #1 ea 08/29/22 [Rx Last Taken Unknown] oxybutynin chloride 10 mg tablet,extended release 24 hr 10 mg PO DAILY 11/28/22 [History Last Taken Unknown] metoprolol tartrate 25 mg tablet 25 mg PO DAILY BP 01/14/23 [History Last Taken Unknown] oxycodone-acetaminophen 5 mg-325 mg tablet (Percocet) 1 tab PO Q8H PRN pain 30 days #90 tabs 02/17/23 [Rx Last Taken Unknown] Allergy/AdvReac Type Severity Reaction Status Date / Time aspirin AdvReac Severe cannot Verified 02/25/23 17:56 take d/t Zach's Vasculitis Family History Mother CAD (coronary artery disease) Congestive heart failure Father Prostate cancer Lung cancer Brother Colon cancer Sister Colon cancer Grandmother Diabetes Surgical History AV fistula Cataract extraction status H/O arthroscopy of left knee (1988) History of colonoscopy History of endoscopy (01/02/16) History of left heart catheterization (11/12/18) History of prostate biopsy (01/11/14) History of total right hip arthroplasty (02/05/16) Hx of bilateral cataract extraction S/P arthroscopic surgery of left knee (1989) S/P TURP Status post biopsy of kidney (12/2013) Social History household members: spouse housing: house 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 status: retired 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 Smoking Status: Former smoker quit date: 07/26/81 pack-years: 19 Electronic Cigarette Use: not used alcohol intake: never substance use type: does not use what type of physical activity do you participate in: none seatbelt use: always do you feel safe at home: Yes ROS ROS ED Constitutional Constitutional ED: Reports malaise and weakness; Denies chills or fever(s) Eyes Eyes: Denies change in vision or diplopia ENT ENT ED: Denies rhinorrhea or sore throat Cardiovascular Cardiovascular: Denies chest pain or palpitations Respiratory/Chest Respiratory/Chest: Denies cough or dyspnea Gastrointestinal Gastrointestinal: Reports abdominal pain; Denies melena, nausea or vomiting Genitourinary Genitourinary ED: Denies dysuria or hematuria Musculoskeletal Musculoskeletal: Denies back pain or neck pain Integumentary Denies abscess or rash Neurologic Neurologic: Reports as per HPI and confusion; Denies focal weakness, headache(s), paresthesias, seizure-like activity or syncope Psychiatric Psychiatric: Denies depression or suicidal thoughts EXAM Physical Exam Const Vital Signs: 10/12/23 04:09 02/27/23 04:47 02/27/23 06:22 Temperature 99.7 F H Temperature Source Temporal Pulse Rate 126 H 118 H Respiratory Rate 18 18 Blood Pressure 189/101 H 157/92 H Blood Pressure Mean 130 113 Pulse Ox 96 Oxygen Delivery Method Room Air Room Air Positive well nourished, well developed and obese General Appearance ED: well developed and NAD Nutritional Appearance: obese HEENT Reports moist mucous membranes normocephalic and atraumatic Eyes PERRL and EOMs intact bilaterally Neck full ROM and supple Resp normal respiratory effort and clear to auscultation bilaterally Cardio regular rate, regular rhythm and no murmurs Rate: tachycardic GI GI Narrative: Tender throughout upper abdomen, with some involuntary guarding and mild rebound tenderness throughout although nontender lower abdomen except for the right lower quadrant where he is just mildly tender. Peritoneal dialysis tubing site is benign. There is no fluid within the tubing. Inspection: abdominal distention Auscultation: normoactive bowel sounds Palpation: soft Back/Spine no CVA tenderness General Back: other FROM Extremity normal to inspection General Extremety ED: Negative for edema, pulses abnormal or tenderness General Extremity: Negative for edema or pulses abnormal Neuro CN's II-XII intact bilaterally and no sensory deficits noted Sensorium / Orientation: awake, alert and orientation impaired Motor Exam: strength 5/5 throughout Psych mental status grossly normal Skin no rashes or lesions noted and no wounds MDM MDM MDM Narrative Medical decision making narrative: Has tachycardia, low-grade fever, some peritoneal signs, and a little disoriented after a fall out of bed. Wide differential, however I reviewed the EMR and the patient was here 2 days ago, which was not mentioned by the family but I reviewed that visit. He had a work-up including a CT of the abdomen/pelvis that showed chronic findings without anything acute requiring treatment. Clinically I am most concerned about peritonitis given the history and exam and now low-grade fever 99.7 and patient is becoming somewhat encephalopathic. His white blood count is only 6.9 but he does have a predilection for neutrophils. His chronic kidney disease is noted, his electrolytes are stable, CT of the head shows no acute explanation for his disorientation, my interpretation of the CT agrees with that of the radiologist. Chest x-ray 1 view shows no acute infiltrates on my interpretation, of which radiology is in agreement. His lactic acid is within normal limits, his vital signs of remained stable he is hypertensive but not emergently so, his tachycardia has improved with some IV fluids and Tylenol. I discussed with his pit worker power shovel Dr. Pacheco, who does not come to this hospital which I did not realize, he states usually the [facility] sees his patient so I discussed with Dr. Smith who was on-call for them. He agrees with admitting the patient, and recommends giving ceftaz and vancomycin immediately after we obtain a sample of his peritoneal fluid from his dialysis catheter empirically without waiting for results (we do not have ceftazidime at this hospital, so we will give a different third-generation cephalosporin, ceftriaxone instead). At the current time at this hospital, we do not have peritoneal dialysis services, and we do not have the necessary equipment to perform peritoneal dialysis, however the patient has all of this necessary equipment at home. We require this in order to even obtain a sample from his catheter, because he has the sterile caps and we do not have those at this hospital. Family does want him to stay here, and they went home to get the equipment so that we can obtain a sample and start the appropriate antibiotics. We did discuss doing a paracentesis instead, although certainly this would in my judgment put the patient at increased risk for injury and complications of the procedure, and I think these risks outweigh the potential benefits of getting a sample sooner because the patient is not septic and is doing relatively well clinically I think he can wait 1-2 hours for the patient's family to go home and get the equipment at return. Will discuss with hospitalist for admission. History & Record Review Additional record(s) reviewed:: Prior ED visit Lab Data Attestation: I reviewed the patient's lab results. Labs: Laboratory Results - last 24 hr 02/27/23 02/27/23 02/27/23 04:26 04:44 04:53 WBC 6.9 RBC 4.04 L Hgb 12.6 L Hct 38.7 L MCV 95.8 H MCH 31.2 MCHC 32.6 RDW Std Deviation 48.0 H RDW Coeff of Misael 13.5 Plt Count 128 L MPV 9.5 Immature Gran % (Auto) 0.400 Neut % (Auto) 89.2 H Lymph % (Auto) 4.9 L Todd % (Auto) 4.6 Eos % (Auto) 0.6 Baso % (Auto) 0.3 Absolute Neuts (auto) 6.1 Absolute Lymphs (auto) 0.34 L Nucleated RBC % 0 Differential Comment SCANNED PT 14.2 INR 1.1 APTT 31.2 Sodium 134 L Potassium 4.2 Chloride 104 Carbon Dioxide 27.0 Anion Gap 3 L BUN 27 H Creatinine 3.18 H Estim Creat Clear Calc 18.48 Est GFR (MDRD) Af Amer 25 L Est GFR (MDRD) Non-Af 20 L BUN/Creatinine Ratio 8.5 L Glucose 140 H Lactic Acid 0.9 Calcium 8.8 Total Bilirubin 0.70 AST 19 ALT 27 Alkaline Phosphatase 136 H Troponin I High Sens 18 Total Protein 6.1 L Albumin 3.0 L Globulin 3.1 Albumin/Globulin Ratio 1.0 Lipase 14 Urine Color Yellow Urine Clarity Clear Urine pH 7.0 Ur Specific Page 1.005 Urine Protein 30 H Urine Glucose (UA) Normal Urine Ketones Negative Urine Occult Blood 25 H Urine Nitrite Negative Urine Bilirubin Negative Urine Urobilinogen Normal Ur Leukocyte Esterase 500 H Urine RBC 0-5 SEEN Urine WBC 25-50 SEEN Ur Squamous Epith Cells 0 SEEN Urine Bacteria 1+ Urine Mucus 0 SEEN Radiography Diagnostic Testing: Clinical Impression(s) from Imaging Studies Chest X-Ray 02/27/23 04:26 IMPRESSION: No significant interval change. No radiographic evidence of acute cardiopulmonary disease. Electronically Signed: Darien Cole MD at 5:28 EDT Reading Location ID and State: [facility] / [place] Tel , Service support , Brain CT 02/27/23 04:29 IMPRESSION: 1. Mild age-related atrophy. 2. Minimal maxillary sinus mucosal disease. 3. No hemorrhage or other acute intracranial abnormality. Electronically Signed: Darine Cole MD at 5:32 EDT , Rhythm Strip Rhythm Strip: Sinus Tach Rate: 125 Ectopy: None EKG Initial EKG: Attestation: I personally reviewed and interpreted this EKG as follows: Interpretation: No Acute Injury Pattern and Sinus Tachycardia Management Discussion w/another healthcare provider: Hospitalist and Turn Down Worker (nephrology Drs. Pacheco, Sarah) Discharge Plan Triage Chief Complaint: Syncope ED Provider: Tha Leblanc Dx/Rx/DC Orders Clinical Impression: ESRD on peritoneal dialysis, Acute encephalopathy, Acute peritonitis Prescriptions: No Action omeprazole 40 mg capsule,delayed release(DR/EC) 40 mg PO DAILY gabapentin 100 mg tablet 200 mg PO QHS (DME) handicap placard See Rx Instructions .ROUTE .MEDSUPPLY Qty: 1 0RF Rx Instructions: Length of time: 5 years Diagnosis: Impaired physical mobility z74.09 oxybutynin chloride 10 mg tablet extended release 24hr 10 mg PO DAILY metoprolol tartrate 25 mg tablet 25 mg PO DAILY Patient Comments: Heart medication oxycodone-acetaminophen [Percocet] 5-325 mg tablet 1 tab PO Q8H PRN (Reason: pain) 30 Days Qty: 90 0RF Primary Care Provider: Catalina Noguera Referrals: Ctaalina Noguera MD [Primary Care Provider] -
[2023-02-27 04:41] LABS: Absolute Lymphocyte Count 0.34 X10^3/uL (0.83-4.51); Absolute Neutrophil Count 6.1 X10^3/uL (2.0-7.7); Basophil# 0.02 X10^3/uL; Basophil% 0.3 % (0-1); Eosinophil# 0.04 X10^3/uL; Eosinophils% 0.6 % (0-5); Hematocrit 38.7 % (40-54); Hemoglobin 12.6 g/dL (13.0-16.5); Lymphocyte # 0.34 X10^3/ul (0.83-4.51); Lymphocyte % 4.9 % (19-41); Mean Corp Hgb Conc 32.6 g/dL (32-36); Mean Corpuscular Hgb 31.2 pg (27.0-32.0); Mean Corpuscular Volume 95.8 fL (80-94); Mean Platelet Vol. 9.5 fl (6.2-12.0); Monocyte# 0.32 X10^3/uL; Monocyte% 4.6 % (0-10); NRBC Flagged by Analyzer 0 % (0-5); Neutrophil # 6.14 X10^3/uL (2.7-7.7); Neutrophil % 89.2 % (47-70); POSITIVE DIFFERENTIAL YES; Platelet Count 128 K/mm3 (150-450); RBC Distribution Width CV 13.5 % (11.6-14.6); Red Blood Count 4.04 M/mm3 (4.6-6.2); White Blood Count 6.9 K/mm3 (4.4-11.0)
[2023-02-27 04:42] LABS: Differential Indicated SCAN CRITERIA MET
[2023-02-27 04:48] LABS: Color, Urine Yellow (Yellow); Glucose, Dipstick Normal (Normal); Ketone-Dipstick Negative (Negative); Leukocyte Esterase-Dipstick 500 /ul (Negative); Mucous, Urine 0 SEEN /hpf (<or=2+); Nitrite-Dipstick Negative (Negative); Occult Blood-Urine 25 /ul (Negative); Protein-Dipstick 30 mg/dl (Negative); Specific Gravity, Urine 1.005 (1.002-1.030); Squamous Epithelial Cells - UA 0 SEEN /hpf (0-5); Urine Bilirubin Dipstick Negative (Negative); Urine Clarity Clear (Clear); Urine Urobilinogen Normal (Normal)
[2023-02-27 04:50] LABS: International Normalized Ratio 1.1; Prothrombin Time (Protime)PT. 14.2 SECONDS (11.7-14.9)
[2023-02-27 04:51] LABS: Partial Thromboplast Time 31.2 Seconds (24.1-36.2)
[2023-02-27] MEDS: 0.9% Normal Saline (250mL Bag) 250 ML 999 ML IV (04:55)
[2023-02-27 05:01] LABS: Bacteria 1+ /hpf (None Seen); Red Blood Cells-Urine 0-5 SEEN /hpf (0-5); White Blood Cells 25-50 SEEN /hpf (0-5)
[2023-02-27 05:04] LABS: Differential Comment SCANNED
[2023-02-27 05:18] LABS: AST(SGOT) 19 U/L (15-37); Alanine Aminotransfer ALT/SGPT 27 U/L (16-61); Alkaline Phosphatase 136 U/L (45-117); Anion Gap 3 (5-15); BUN 27 mg/dL (7-18); BUN/Creat Ratio 8.5 RATIO (10-20); Calcium,Total 8.8 mg/dL (8.5-10.1); Chloride 104 mmol/L (98-107); Creatinine, Serum 3.18 mg/dL (0.70-1.30); EST Glomerular Filtration Rate 20 mL/min (>60); Est Glom Filt Rate - Afr Amer 25 mL/min (>60); Estimated Creatinine Clearance 18.48 ml/min; Globulin 3.1 g/dL (2.2-4.2); Glucose 140 mg/dL (74-106); Lipase 14 U/L (13-75); Potassium 4.2 mmol/L (3.5-5.1); Protein, Total 6.1 g/dL (6.4-8.2); Sodium Level 134 mmol/L (136-145); Troponin-I HS 18 pg/mL (3.0-78.0)
[2023-02-27 05:48] LABS: Lactic Acid 0.9 mmol/L (0.4-1.9)
[2023-02-27] MEDS: Acetaminophen 500 MG Tablet 1000 MG PO (06:59)
--- NOTE | 2023-02-27 07:22 | ED.RN ---
atb's not up d/t need of peritoneal fluid for cx. family to bring in supplies for
--- NOTE | 2023-02-27 08:02 | PCM.HP.STD ---
HPI - General General Date of Admission: 02/27/23 Date of Service: 02/27/23 Chief Complaint: Abd pain, gen weakness HPI Narrative REBEKAH REID, is a 77-year-old male with end-stage renal disease on peritoneal dialysis since July and hemodialysis before, BPH, heart failure with preserved ejection fraction who presented to [facility] 02/27/2023 after he woke up on the floor after a fall last night. His main complaint was abdominal pain and he endorsed that last night at 7 PM he infused his peritoneal dialysis fluid when he began to have the pain, there dialysis nurse recommended removing fluid and it helped some but he still had the pain and upon further discussion its been present off and on for 3 to [address] Pacheco with nephrology on outpatient basis. In ED patient slightly confused and temp 99.7 and patient tachycardic. Despite white blood cell count being 6.9 he has a left shift and there is concern for peritonitis. Our nephrology team contacted as his car driver does not come to our hospital and it was recommended giving ceftaz (nonformulary so we will give Rocephin) and Vanco after getting a peritoneal fluid sample. Hospitalist contacted for admission. Patient seen with at bedside, he does endorse the abdominal pain off and on for several days that is worse anytime he puts and or takes out peritoneal fluid, also hurts when he moves and touches his abdomen. Feels generally weak and tired and has had a dull headache. Reports chronically he gets some intermittent tingling in his fingers though that is not necessarily new, denies diarrhea, does make urine. Denies any other acute complaints. Patient and do endorse that family is bringing in peritoneal dialysis supplies and that patient does this at home with his 's help and they verbalized understanding that they will have to do it while he is inpatient here as we do not have the capabilities. This was confirmed multiple times that they understood this requirement [facility] Medical History Abnormal stress echo Anemia Arthritis Back pain BPH (benign prostatic hyperplasia) Cardiology follow-up encounter Chest pain Chronic kidney disease, stage 3 (moderate) Chronic systolic heart failure Claudication Dialysis patient Essential hypertension Former smoker Gastric reflux GERD (gastroesophageal reflux disease) Hard of hearing History of CHF (congestive heart failure) History of echocardiogram History of edema History of renal disease History of tobacco use Irregular heart beat Neuropathy Normal stress echocardiogram Obstructive sleep apnea Prediabetes Prostate disease Rheumatoid arthritis Shortness of breath Wears dentures Wears glasses Wears hearing aid Zach's granulomatosis Home Medications omeprazole 40 mg capsule,delayed release 40 mg PO DAILY stomach 11/04/18 [History Last Taken 01/18/22] gabapentin 100 mg tablet 200 mg PO QHS 08/29/22 [History Last Taken Unknown] handicap placard #1 ea 08/29/22 [Rx Last Taken Unknown] oxybutynin chloride 10 mg tablet,extended release 24 hr 10 mg PO DAILY 11/28/22 [History Last Taken Unknown] metoprolol tartrate 25 mg tablet 25 mg PO DAILY BP 01/14/23 [History Last Taken Unknown] oxycodone-acetaminophen 5 mg-325 mg tablet (Percocet) 1 tab PO Q8H PRN pain 30 days #90 tabs 02/17/23 [Rx Last Taken Unknown] Allergy/AdvReac Type Severity Reaction Status Date / Time aspirin AdvReac Severe cannot Verified 02/25/23 17:56 take d/t Zach's Vasculitis Family History Mother CAD (coronary artery disease) Congestive heart failure Father Prostate cancer Lung cancer Brother Colon cancer Sister Colon cancer Grandmother Diabetes Surgical History AV fistula Cataract extraction status H/O arthroscopy of left knee (1988) History of colonoscopy History of endoscopy (01/02/16) History of left heart catheterization (11/12/18) History of prostate biopsy (01/11/14) History of total right hip arthroplasty (02/05/16) Hx of bilateral cataract extraction S/P arthroscopic surgery of left knee (1989) S/P TURP Status post biopsy of kidney (12/2013) Social History household members: spouse housing: house 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 status: 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 Smoking Status: Former smoker quit date: 07/26/81 pack-years: 19 Electronic Cigarette Use: not used alcohol intake: never substance use type: does not use what type of physical activity do you participate in: none seatbelt use: always do you feel safe at home: Yes ROS ROS Narrative General: Denies fever/chills at home HENT: Dull headache, denies stuffy nose, denies sore throat EYES: Denies changes in vision Resp: Denies cough, denies shortness of breath Cardiac: Denies chest pain GI: Generalized abdominal pain, denies changes in bowel, denies nausea/vomiting : Denies changes in urination Extremity: Some chronic ankle swelling MSK: Generalized weakness Neuro: Occasional tingling in hands Heme: Denies any bleeding or bruising Skin: Denies rashes Psychiatric: No complaints voiced Vital Signs Vital Signs Vital Signs: 02/27/23 04:09 02/27/23 04:47 02/27/23 06:22 Temperature 99.7 F H Temperature Source Temporal Pulse Rate 126 H 118 H Respiratory Rate 18 18 Blood Pressure 189/101 H 157/92 H Blood Pressure Mean 130 113 Pulse Ox 96 Oxygen Delivery Method Room Air Room Air 02/27/23 07:40 Temperature 98.7 F Temperature Source Pulse Rate 114 H Respiratory Rate 19 H Blood Pressure 137/86 H Blood Pressure Mean 103 Pulse Ox 97 Oxygen Delivery Method Weight Weight: 96.7 kg Body Mass Index (BMI) 33.3 Physical Exam Narrative General: Awake and answering questions, does appear tired HEENT: Atraumatic, normocephalic Eyes: Anicteric, normal conjunctiva, extraocular movements grossly intact Neck: Supple Respiratory: Clear to auscultation bilaterally, normal respiratory effort Cardiovascular: Regular rate and rhythm GI: Soft, slightly distended, diffusely tender but not overtly rigid Extremities: 1+ bilateral lower extremity edema Musculoskeletal: Moving all extremities Neuro: No overt focal neurological deficits Skin: No rashes appreciated Psych: Cooperative Results Lab / Micro Data 02/27/23 04:26 02/27/23 04:26 Labs: Laboratory Results - last 24 hr 02/27/23 04:26: WBC 6.9, RBC 4.04 L, Hgb 12.6 L, Hct 38.7 L, MCV 95.8 H, MCH 31.2, MCHC 32.6, RDW Std Deviation 48.0 H, RDW Coeff of Misael 13.5, Plt Count 128 L, MPV 9.5, Immature Gran % (Auto) 0.400, Neut % (Auto) 89.2 H, Lymph % (Auto) 4.9 L, [place] % (Auto) 4.6, Eos % (Auto) 0.6, Baso % (Auto) 0.3, Absolute Neuts (auto) 6.1, Absolute Lymphs (auto) 0.34 L, Nucleated RBC % 0, Differential Comment SCANNED, PT 14.2, INR 1.1, APTT 31.2, Sodium 134 L, Potassium 4.2, Chloride 104, Carbon Dioxide 27.0, Anion Gap 3 L, BUN 27 H, Creatinine 3.18 H, Estim Creat Clear Calc 18.48, Est GFR (MDRD) Af Amer 25 L, Est GFR (MDRD) Non-Af 20 L, BUN/Creatinine Ratio 8.5 L, Glucose 140 H, Calcium 8.8, Total Bilirubin 0.70, AST 19, ALT 27, Alkaline Phosphatase 136 H, Troponin I High Sens 18, Total Protein 6.1 L, Albumin 3.0 L, Globulin 3.1, Albumin/Globulin Ratio 1.0, Lipase 14 02/27/23 04:44: Urine Color Yellow, Urine Clarity Clear, Urine pH 7.0, Ur Specific Rossiter 1.005, Urine Protein 30 H, Urine Glucose (UA) Normal, Urine Ketones Negative, Urine Occult Blood 25 H, Urine Nitrite Negative, Urine Bilirubin Negative, Urine Urobilinogen Normal, Ur Leukocyte Esterase 500 H, Urine RBC 0-5 SEEN, Urine WBC 25-50 SEEN, Ur Squamous Epith Cells 0 SEEN, Urine Bacteria 1+, Urine Mucus 0 SEEN 02/27/23 04:53: Lactic Acid 0.9 Rhythm Strip Rhythm Strip: Sinus Tach Rate: 125 Ectopy: None Radiology Impression Chest X-Ray 02/27/23 04:26 IMPRESSION: No significant interval change. No radiographic evidence of acute cardiopulmonary disease. Electronically Signed: Darien Cole MD at 5:28 EDT , Brain CT 02/27/23 04:29 IMPRESSION: 1. Mild age-related atrophy. 2. Minimal maxillary sinus mucosal disease. 3. No hemorrhage or other acute intracranial abnormality. Electronically Signed: Darien Cole MD at 5:32 EDT , Assessment & Plan Assessment/Plan (1) Abdominal pain: (2) BPH (benign prostatic hyperplasia): (3) Chronic kidney failure: QUALIFIERS: Chronic kidney disease stage: stage 5 Qualified Code(s): N18.5 - Chronic kidney disease, stage 5 (4) ESRD on peritoneal dialysis: (5) Essential hypertension: PLAN: Plan #Abdominal pain and concern for peritonitis in setting of ESRD on PD -Family to bring in PD supplies for PD to continue and also so PD sample can be obtained-discussed with patient and and they verbalized their understanding that they would have to complete the peritoneal dialysis as we do not have those capabilities -Given pt not septic currently awaiting supplies to arrive to get sample for cx to start abx, cefepime and vanc -Does feel generally weak and is mildly tachycardic, given very small amount of fluid in ED, suspect this will improve with antibiotics -Blood cultures -C/s nephro -Await cx, supportive care #End-stage renal disease on peritoneal dialysis -Patient's family bringing in his old supply and patient verbalized understanding multiple times that they would be responsible for his peritoneal dialysis while he was in the hospital as we do not yet have these capabilities -Daily weights, I's and O's #Macrocytic anemia -Similar to previous, suspect due to chronic disease/kidney failure -Continue to monitor #Thrombocytopenia -Platelets 128, were 120 several days ago -May be secondary to illness -Trend -Treat underlying cause which I suspect is infection related #Overactive bladder -Continue oxybutynin #GERD -Continue PPI #Hypertension/chronic heart failure with preserved ejection fraction -EF within normal limits in 2019 but had stage I diastolic dysfunction -Continue metoprolol -Daily weights, I's and O's #DVT ppx: Heparin subcu Chey Bates MD Time spent in the patient's overall evaluation,decision-making process, review of diagnostic data, adjustment of management, discussion with other providers, nursing nursing and ancillary staff involved in patient's care documentation, 60 minutes Charges/Coding Visit Charges Inpatient E&M: 36207 Init Hosp L2
[2023-02-27 09:57] LABS: Body Fluid Mononuclear WBC # 0.379 10^3/uL; Body Fluid Mononuclear WBC % 33.1 %; Body Fluid Polynuclear WBC # 0.765 10^3/uL; Body Fluid Polynuclear WBC % 66.9 %; White Blood Count/Body Fluid 1.144 10^3/uL
--- NOTE | 2023-02-27 10:26 | CON.PCM.RE_ITS ---
Documented by User: EDER Gonzalez 02/27/23 10:42 Assessment & Plan Assessment/Plan (1) Abdominal pain: (2) ESRD on peritoneal dialysis: PLAN: Plan This is a 77-year-old male with past medical history significant for end-stage renal disease who is on peritoneal dialysis who was admitted to the hospital after presenting with complaints of abdominal pain, concern for peritonitis. Patient last had his peritoneal dialysis on Friday. It was attempted to obtain PD culture and cell count today however there was small amount of fluid in abdomen so not sure if enough fluid obtained for cultures. Patient and family aware they are to bring in PD cycler and solutions. Patient and family will attempt to dwell 2 L PD solution today in and out and attempt to obtain PD cell count and culture again. Patient is afebrile, white count is normal. We will probably plan for peritoneal dialysis tomorrow however if unable to do peritoneal dialysis, patient does have functioning AV fistula for hemodialysis. There is no acute indication for COOK DINNER today. Volume status, potassium and acid- base acceptable. CT scan abdomen reviewed, CXR clear. Patient has received IV antibiotics, vancomycin ceftriaxone. Cefepime ordered. Patient is constipated therefore we will give lactulose until good bm. Further orders forthcoming as hospitalization evolves, thank you for allowing us to participate in the care of Mr. Reid. HPI Consult Data Date of Consult: 02/27/23 HPI Narrative HPI Narrative: REBEKAH REID, is a 77 M with past medical history significant for ESRD who is on peritoneal dialysis support who presented to the emergency room with complaints of abdominal pain and generalized weakness. Patient was admitted for further evaluation and treatment; concern for peritonitis. Patient is followed by Dr. Pacheoc. Patient just recently transitioned from in center hemodialysis via left upper arm AV fistula to peritoneal dialysis support. Patient reports that he had been using cycler at night for peritoneal dialysis however recently had issues with his cycler machine therefore transition to manual peritoneal exchanges. Patient reports his last peritoneal dialysis was on Friday. Patient denies any recent fevers or chills at home. Patient reports peritoneal dialysis solution has been clear. Denies any shortness of breath. Denies noting any drainage from around PD catheter insertion site. Patient does report that last week he had loose bowel movements and after taking something for diarrhea patient has not had a bowel movement since at least Friday. [facility] Medical History Abnormal stress echo Anemia Arthritis Back pain BPH (benign prostatic hyperplasia) Cardiology follow-up encounter Chest pain Chronic kidney disease, stage 3 (moderate) Chronic systolic heart failure Claudication Dialysis patient Essential hypertension Former smoker Gastric reflux GERD (gastroesophageal reflux disease) Hard of hearing History of CHF (congestive heart failure) History of echocardiogram History of edema History of renal disease History of tobacco use Irregular heart beat Neuropathy Normal stress echocardiogram Obstructive sleep apnea Prediabetes Prostate disease Rheumatoid arthritis Shortness of breath Wears dentures Wears glasses Wears hearing aid Zach's granulomatosis Home Medications omeprazole 40 mg capsule,delayed release 40 mg PO DAILY stomach 11/04/18 [History Last Taken 01/18/22] gabapentin 100 mg tablet 200 mg PO QHS 08/29/22 [History Last Taken Unknown] handicap placard #1 ea 08/29/22 [Rx Last Taken Unknown] oxybutynin chloride 10 mg tablet,extended release 24 hr 10 mg PO DAILY 11/28/22 [History Last Taken Unknown] metoprolol tartrate 25 mg tablet 25 mg PO DAILY BP 01/14/23 [History Last Taken Unknown] oxycodone-acetaminophen 5 mg-325 mg tablet (Percocet) 1 tab PO Q8H PRN pain 30 days #90 tabs 02/17/23 [Rx Last Taken Unknown] Allergy/AdvReac Type Severity Reaction Status Date / Time aspirin AdvReac Severe cannot Verified 02/25/23 17:56 take d/t Zach's Vasculitis Family History Mother CAD (coronary artery disease) Congestive heart failure Father Prostate cancer Lung cancer Brother Colon cancer Sister Colon cancer Grandmother Diabetes Surgical History AV fistula Cataract extraction status H/O arthroscopy of left knee (1988) History of colonoscopy History of endoscopy (01/02/16) History of left heart catheterization (11/12/18) History of prostate biopsy (01/11/14) History of total right hip arthroplasty (02/05/16) Hx of bilateral cataract extraction S/P arthroscopic surgery of left knee (1989) S/P TURP Status post biopsy of kidney (12/2013) Social History household members: spouse housing: house 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 PD catheter intact. Removed dressing no redness or drainage noted around PD catheter/ insertion site No edema Left upper arm AV fistula positive thrill and bruit Lab / Micro Data 02/27/23 04:26 02/27/23 04:26 Labs: Laboratory Results - last 24 hr 02/27/23 04:26: WBC 6.9, RBC 4.04 L, Hgb 12.6 L, Hct 38.7 L, MCV 95.8 H, MCH 31.2, MCHC 32.6, RDW Std Deviation 48.0 H, RDW Coeff of Misael 13.5, Plt Count 128 L, MPV 9.5, Immature Gran % (Auto) 0.400, Neut % (Auto) 89.2 H, Lymph % (Auto) 4.9 L, [place] % (Auto) 4.6, Eos % (Auto) 0.6, Baso % (Auto) 0.3, Absolute Neuts (auto) 6.1, Absolute Lymphs (auto) 0.34 L, Nucleated RBC % 0, Differential Comment SCANNED, PT 14.2, INR 1.1, APTT 31.2, Sodium 134 L, Potassium 4.2, Chloride 104, Carbon Dioxide 27.0, Anion Gap 3 L, BUN 27 H, Creatinine 3.18 H, Estim Creat Clear Calc 18.48, Est GFR (MDRD) Af Amer 25 L, Est GFR (MDRD) Non-Af 20 L, BUN/Creatinine Ratio 8.5 L, Glucose 140 H, Calcium 8.8, Total Bilirubin 0.70, AST 19, ALT 27, Alkaline Phosphatase 136 H, Troponin I High Sens 18, Total Protein 6.1 L, Albumin 3.0 L, Globulin 3.1, Albumin/Globulin Ratio 1.0, Lipase 14 02/27/23 04:44: Urine Color Yellow, Urine Clarity Clear, Urine pH 7.0, Ur Specific [place] 1.005, Urine Protein 30 H, Urine Glucose (UA) Normal, Urine Ketones Negative, Urine Occult Blood 25 H, Urine Nitrite Negative, Urine Bilirubin Negative, Urine Urobilinogen Normal, Ur Leukocyte Esterase 500 H, Urine RBC 0-5 SEEN, Urine WBC 25-50 SEEN, Ur Squamous Epith Cells 0 SEEN, Urine Bacteria 1+, Urine Mucus 0 SEEN 02/27/23 04:53: Lactic Acid 0.9 Rhythm Strip Rhythm Strip: Sinus Tach Rate: 125 Ectopy: None Radiology Impression Chest X-Ray 02/27/23 04:26 IMPRESSION: No significant interval change. No radiographic evidence of acute cardiopulmonary disease. Electronically Signed: Darien Cole MD at 5:28 EDT , Brain CT 02/27/23 04:29 IMPRESSION: 1. Mild age-related atrophy. 2. Minimal maxillary sinus mucosal disease. 3. No hemorrhage or other acute intracranial abnormality. Electronically Signed: Darien Cole MD at 5:32 EDT , Documented by User: Dr. Jazmyne Smith MD 02/27/23 17:11 Assessment & Plan Assessment/Plan (1) Abdominal pain: (2) ESRD on peritoneal dialysis: PLAN: Plan This is a 77-year-old male with past medical history significant for end-stage renal disease who is on peritoneal dialysis who was admitted to the hospital after presenting with complaints of abdominal pain, concern for peritonitis. Patient last had his peritoneal dialysis on Friday. It was attempted to obtain PD culture and cell count today however there was small amount of fluid in abdomen so not sure if enough fluid obtained for cultures. Patient and family aware they are to bring in PD cycler and solutions. Patient and family will attempt to dwell 2 L PD solution today in and out and attempt to obtain PD cell count and culture again. Patient is afebrile, white count is normal. We will probably plan for peritoneal dialysis tomorrow however if unable to do peritoneal dialysis, patient does have functioning AV fistula for hemodialysis. There is no acute indication for COOK DINNER today. Volume status, potassium and acid- base acceptable. CT scan abdomen reviewed, CXR clear. Patient has received IV antibiotics, vancomycin ceftriaxone. Cefepime ordered. Patient is constipated therefore we will give lactulose until good bm. Further orders forthcoming as hospitalization evolves, thank you for allowing us to participate in the care of Mr. Reid. dw [place] ESRD on HD. recently started PD. Presented with abdomen pain. PD fluid analysis with WBC 1100 consistent with peritonitis. cultures pending. continue IV vanco and ceftaz for now. We may just do HD while inpatient. called and spoke to PD nurse. he does have antibiotic kits at home. They can train on IP abx at the time of dc. HPI Consult Data Date of Consult: 02/27/23 [facility] Medical History Abnormal stress echo Anemia Arthritis Back pain BPH (benign prostatic hyperplasia) Cardiology follow-up encounter Chest pain Chronic kidney disease, stage 3 (moderate) Chronic systolic heart failure Claudication Dialysis patient Essential hypertension Former smoker Gastric reflux GERD (gastroesophageal reflux disease) Hard of hearing History of CHF (congestive heart failure) History of echocardiogram History of edema History of renal disease History of tobacco use Irregular heart beat Neuropathy Normal stress echocardiogram Obstructive sleep apnea Prediabetes Prostate disease Rheumatoid arthritis Shortness of breath Wears dentures Wears glasses Wears hearing aid Zach's granulomatosis Home Medications omeprazole 40 mg capsule,delayed release 40 mg PO DAILY stomach 11/04/18 [History Last Taken 01/18/22] gabapentin 100 mg tablet 200 mg PO QHS 08/29/22 [History Last Taken Unknown] handicap placard #1 ea 08/29/22 [Rx Last Taken Unknown] oxybutynin chloride 10 mg tablet,extended release 24 hr 10 mg PO DAILY 11/28/22 [History Last Taken Unknown] metoprolol tartrate 25 mg tablet 25 mg PO DAILY BP 01/14/23 [History Last Taken Unknown] oxycodone-acetaminophen 5 mg-325 mg tablet (Percocet) 1 tab PO Q8H PRN pain 30 days #90 tabs 02/17/23 [Rx Last Taken Unknown] Allergy/AdvReac Type Severity Reaction Status Date / Time aspirin AdvReac Severe cannot Verified 02/25/23 17:56 take d/t Zach's Vasculitis Family History Mother CAD (coronary artery disease) Congestive heart failure Father Prostate cancer Lung cancer Brother Colon cancer Sister Colon cancer Grandmother Diabetes Surgical History AV fistula Cataract extraction status H/O arthroscopy of left knee (1988) History of colonoscopy History of endoscopy (01/02/16) History of left heart catheterization (11/12/18) History of prostate biopsy (01/11/14) History of total right hip arthroplasty (02/05/16) Hx of bilateral cataract extraction S/P arthroscopic surgery of left knee (1989) S/P TURP Status post biopsy of kidney (12/2013) Social History household members: spouse housing: house 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
[2023-02-27] MEDS: Cefepime HCl 2 GM in 0.9% Normal Saline (100mL MB+) 100 ML IV (10:37)
[2023-02-27] MEDS: Metoprolol Tartrate 25 MG Tablet 12.5 MG PO ×2 (10:39→21:14)
[2023-02-27] MEDS: Tolterodine Tartrate 2 MG CAP.SA PO (10:40)
[2023-02-27] MEDS: Pantoprazole Sodium 40 MG Tablet PO (10:40)
--- NOTE | 2023-02-27 10:55 | CASEMGMT ---
RN CM Face to Face with patient for initial transition planning/care coordination assessment. RN CM introduced self and role at [facility]. Patient lying in bed, alert and oriented, son and daughter at bedside. Patient willing to participate in assessment and is able to answer all questions appropriately. Care providers, pharmacy, and demographics verified. Patient wishes to discharge home, denies need for home health at this time, will monitor progress with therapy. Patient states he has no further needs or concerns at this time. CM to follow for discharge planning needs that may arise. PCP: Chuckie Specialists: Brianne, urologist; Sarah, bow making machine operator Preferred Pharmacy: [facility] Insurance: [employer], [employer] [place] Prescription Benefit: yes Living Will/HPOA: yes, son Nathan Burton and daughter Leonarda Rosario LNOK:, son, daughter Living Arrangements: Patient lives with in a single story home with 4 steps and railing at home. Patient states he is independent at home. Transportation: self, son, DME/HHC: Patient has shower chair, raised toilet, cane, grab bars, power wheelchair. Patient completed Peritoneal Dialysis at home. Patient has had HHC in the past but does not recall agency. No previous SNF. Disposition Plan: Patient to discharge home with family support and follow-up plans in place. Will monitor for HHC pending therapy. Coty MAHAJAN, RN, CM
[2023-02-27 11:26] LABS: Appearance/Body Fluid SL CLDY; Auto B Fluid Analyzer BKGD Ct COUNTS W/IN LIMITS (W/IN LIMITS); Color/Body Fluid COLORLESS; Source- Body Fluid PERITONEAL FLUID
[2023-02-27] MEDS: Vancomycin HCl 1,500 MG in 0.9% Normal Saline (500mL Bag) 500 ML 250 MG IV (11:32)
[2023-02-27] MEDS: Lactulose 20 GM/30 ML UDC PO (11:33)
--- NOTE | 2023-02-27 11:46 | PCM.RX.CS ---
Consult Antibiotic Management Pharmacy has been consulted to manage selected antiobiotic: Vancomycin Type of Intervention Type of Consult: New start Suspected Infection Suspected Infection: Other (INTRA-ABDOMINAL) Prior Doses of Antibiotics Prior Doses of Antibiotics Received/Current Regimen: Vancomycin 1500 mg IV x 1 loading dose on 02/27/23 @ 1132 Labs Labs: Sodium 134 mmol/L (136-145) L 02/27/23 04:26 Potassium 4.2 mmol/L (3.5-5.1) 02/27/23 04:26 Chloride 104 mmol/L (98-107) 02/27/23 04:26 Carbon Dioxide 27.0 mmol/L (21.0-32.0) 02/27/23 04:26 Anion Gap 3 (5-15) L 02/27/23 04:26 BUN 27 mg/dL (7-18) H 02/27/23 04:26 Creatinine 3.18 mg/dL (0.70-1.30) H 02/27/23 04:26 Est GFR (MDRD) Af Amer 25 mL/min (>60) L 02/27/23 04:26 Est GFR (MDRD) Non-Af 20 mL/min (>60) L 02/27/23 04:26 BUN/Creatinine Ratio 8.5 RATIO (10-20) L 02/27/23 04:26 Glucose 140 mg/dL (74-106) H 02/27/23 04:26 Dosing Weight Weight used for dosin kg Goal Trough Goal Trough: 15-20 mcg/mL Pharmacy Plan for Drug Dosing Pharmacy Plan for Drug Dosing: Vancomycin 1500 mg IV x 1 given on 02/27/23. Patient is on peritoneal dialysis, will only give loading dose and get a random level on 03/01 in the AM. Pharmacy Service will continue to monitor and adjust dosing as required. Follow-Up Labs Follow-Up Labs: Trough: Vancomycin (random) Date/Time Labs Ordered Labs to be done on [date and time ordered]: 03/01/23 @ 0600
--- NOTE | 2023-02-27 12:44 | CHAPLAIN ---
Type of Pastoral Visit _x__ Initial Visit ___ Follow-up Visit ___ On-call Visit ___ General Patient Visit ___ Spiritual Assessment ___ Family Conference ___ Bereavement ___ Rapid Response ___ Code Blue ___ Other (describe below) Pastoral Care Referral From _x__ Patient ___ Family ___ Nurse ___ Physician ___ Tower Operator ___ Control Panel Assembler ___ Other (describe below) Sacrament/Intervention _x__ Active listening ___ Anointing ___ Mu-Ism ___ Bereavement ___ Communion _x__ Briseyda exploration ___ _x__ Life review _x__ Prayer ___ Reconciliation ___ Sacrament of Sick _x__ Supportive presence ___ Wedding ___ Other (describe below) Pastoral Comments patient reports on his health need and hope for answers; pt also reports on how this has impacted his briseyda and thoughts about eternal life; pt has already survived longer than doctors told him to expect and he credits God; pt has good family support but gets emotional when speaks of the briseyda community and their great care and provision for him; a daughter and a son are present with pt; pt welcomes prayer for support and expresses thanks for the visit
[2023-02-27 13:13] LABS: Red Cell Count/Body Fluid < 0 /mm3
[2023-02-27] MEDS: Oxycodone/Apap 5/325 Tablet PO (13:40)
[2023-02-27 14:24] LABS: Body Fluid QC Type(s) BF1Q
[2023-02-27] MEDS: Acetaminophen 325 MG Tablet 650 MG PO (16:14)
[2023-02-27] MEDS: Gabapentin 100 MG Capsule 200 MG PO (21:15)
[2023-02-28] VITALS (15 sets, daily range): BP systolic 128–247; BP diastolic 51–98; PULSE 91–119; RESP 12–18; TEMP 36.7–37; O2SAT 97–100; BMI 32.2; BMI 32.0
[2023-02-28 06:15] LABS: Absolute Lymphocyte Count 0.44 X10^3/uL (0.83-4.51); Absolute Neutrophil Count 5.5 X10^3/uL (2.0-7.7); Basophil# 0.03 X10^3/uL; Basophil% 0.5 % (0-1); Eosinophil# 0.12 X10^3/uL; Eosinophils% 1.8 % (0-5); Hematocrit 33.9 % (40-54); Hemoglobin 11.2 g/dL (13.0-16.5); Lymphocyte # 0.44 X10^3/ul (0.83-4.51); Lymphocyte % 6.8 % (19-41); Mean Corpuscular Volume 96.9 fL (80-94); Mean Platelet Vol. 9.4 fl (6.2-12.0); Monocyte% 6.2 % (0-10); NRBC Flagged by Analyzer 0 % (0-5); Neutrophil # 5.48 X10^3/uL (2.7-7.7); Neutrophil % 84.4 % (47-70); POSITIVE DIFFERENTIAL YES; Platelet Count 113 K/mm3 (150-450); RBC Distribution Width CV 13.8 % (11.6-14.6); RBC Distribution Width SD 49.6 fl (35.1-43.9); White Blood Count 6.5 K/mm3 (4.4-11.0)
[2023-02-28 06:55] LABS: ALB/GLOB Ratio 0.8 RATIO (0.9-2.4); AST(SGOT) 17 U/L (15-37); Alanine Aminotransfer ALT/SGPT 21 U/L (16-61); Albumin, Serum 2.4 g/dL (3.2-5.0); Alkaline Phosphatase 115 U/L (45-117); Anion Gap 9 (5-15); BUN 26 mg/dL (7-18); BUN/Creat Ratio 8.7 RATIO (10-20); Calcium,Total 8.4 mg/dL (8.5-10.1); Chloride 106 mmol/L (98-107); EST Glomerular Filtration Rate 22 mL/min (>60); Est Glom Filt Rate - Afr Amer 26 mL/min (>60); Estimated Creatinine Clearance 20.27 ml/min; Globulin 2.9 g/dL (2.2-4.2); Glucose 100 mg/dL (74-106); Magnesium 2.4 mg/dL (1.6-2.6); Phosphorus 2.1 mg/dL (2.5-4.9); Potassium 4.7 mmol/L (3.5-5.1); Protein, Total 5.3 g/dL (6.4-8.2); Sodium Level 138 mmol/L (136-145)
[2023-02-28 07:05] LABS: Differential Indicated SCAN CRITERIA MET
[2023-02-28 07:06] LABS: Differential Comment SCANNED
--- NOTE | 2023-02-28 07:42 | PN.HOSP_ITS ---
Reason for Visit Reason for Visit: Diagnoses Essential (primary) hypertension (02/27/23) Chronic kidney disease, stage 5 (02/27/23) End stage renal disease (02/27/23) Benign prostatic hyperplasia without lower urinary tract symptoms (02/27/23) Unspecified abdominal pain (02/27/23) Dependence on renal dialysis (02/27/23) Subjective Subjective Still continues to have abdominal pain, mostly when pushing it or moving around Objective Data Objective Data Vital Signs: Vital Signs Temp Pulse Resp BP Pulse Ox O2 Del Method 98.2 F 95 16 142/82 H 100 Room Air 02/28/23 03:00 02/28/23 03:00 02/28/23 03:00 02/28/23 03:00 02/28/23 03:00 02/28/23 03:00 Oxygen Delivery Method Room Air Weight: 96.1 kg Body Mass Index (BMI) 32.2 Intake & Output: Intake and Output for Last 24 Hours 02/26/23 02/27/23 02/28/23 23:59 23:59 23:59 Intake Total 1600 / 1600 Output Total 550 / 1000 450 / 450 Balance 1050 / 600 -450 / -450 Lab / Micro Data 02/28/23 05:32 02/28/23 05:32 Labs: Laboratory Results - last 24 hr 02/27/23 08:45: Fluid Source PERITONEAL FLUID, Fluid Color COLORLESS, Fluid Appearance SL CLDY, Fluid WBC 1.144, Fluid RBC < 0, Fluid Tot Cell Count 1.190, Fld Polynuclear WBCs # 0.765, Fld Polynuclear WBCs % 66.9, Fluid Mononuclear WBCs 0.379, Fld Mononuclear WBCs % 33.1, Fl Pathologist Comment May follow, Fluid Comment 2 SEE COMMENT 02/28/23 05:32: WBC 6.5, RBC 3.50 L, Hgb 11.2 L, Hct 33.9 L, MCV 96.9 H, MCH 32.0, MCHC 33.0, RDW Std Deviation 49.6 H, RDW Coeff of Misael 13.8, Plt Count 113 L, MPV 9.4, Immature Gran % (Auto) 0.300, Neut % (Auto) 84.4 H, Lymph % (Auto) 6.8 L, [place] % (Auto) 6.2, Eos % (Auto) 1.8, Baso % (Auto) 0.5, Absolute Neuts (auto) 5.5, Absolute Lymphs (auto) 0.44 L, Nucleated RBC % 0, Differential Comment SCANNED, Sodium 138, Potassium 4.7, Chloride 106, Carbon Dioxide 23.0, Anion Gap 9, BUN 26 H, Creatinine 3.00 H, Estim Creat Clear Calc 20.27, Est GFR (MDRD) Af Amer 26 L, Est GFR (MDRD) Non-Af 22 L, BUN/Creatinine Ratio 8.7 L, Glucose 100, Calcium 8.4 L, Phosphorus 2.1 L, Magnesium 2.4, Total Bilirubin 0.70, AST 17, ALT 21, Alkaline Phosphatase 115, Total Protein 5.3 L, Albumin 2.4 L, Globulin 2.9, Albumin/Globulin Ratio 0.8 L Rhythm Strip Rhythm Strip: Sinus Tach Rate: 125 Ectopy: None Physical Exam Narrative General: Awake and answering questions, appears more alert today HEENT: Atraumatic, normocephalic Eyes: Anicteric, normal conjunctiva, extraocular movements grossly intact Neck: Supple Respiratory: Clear to auscultation bilaterally, normal respiratory effort Cardiovascular: Regular rate and rhythm GI: Soft, slightly distended, diffusely tender but not rigid Extremities: 1+ bilateral lower extremity edema Musculoskeletal: Moving all extremities Neuro: No overt focal neurological deficits Skin: No rashes appreciated Psych: Cooperative Assessment & Plan Assessment/Plan (1) Abdominal pain: (2) BPH (benign prostatic hyperplasia): (3) Chronic kidney failure: QUALIFIERS: Chronic kidney disease stage: stage 5 Qualified Code(s): N18.5 - Chronic kidney disease, stage 5 (4) ESRD on peritoneal dialysis: (5) Essential hypertension: PLAN: Plan #Abdominal pain and concern for peritonitis in setting of ESRD on PD -Family to bring in PD supplies for PD to continue and also so PD sample can be obtained-discussed with patient and and they verbalized their understanding that they would have to complete the peritoneal dialysis as we do not have those capabilities -Given pt not septic currently awaiting supplies to arrive to get sample for cx to start abx, cefepime and vanc -Does feel generally weak and is mildly tachycardic, given very small amount of fluid in ED, suspect this will improve with antibiotics -Blood cultures -C/s nephro -Await cx, supportive care -02/28: Peritoneal fluid with elevated white blood cell count and PMNs, concern for peritonitis, continue cefepime and vancomycin, monitoring cultures. Patient with improvement in his tachycardia after initiation of antibiotics. Discussed with nephrology, patient having pain with peritoneal dialysis and was unable to complete this, will do HD today but needs transfer to a facility with those capabilities. [facility] accepted, pending transfer #End-stage renal disease on peritoneal dialysis -Patient's family bringing in his old supply and patient verbalized understanding multiple times that they would be responsible for his peritoneal dialysis while he was in the hospital as we do not yet have these capabilities -Daily weights, I's and O's -02/28: We will have HD today pending transfer to [facility] #Macrocytic anemia -Similar to previous, suspect due to chronic disease/kidney failure -Continue to monitor -02/28: Slightly down compared to yesterday however similar to previous and all cell lines slightly down #Thrombocytopenia -Platelets 128, were 120 several days ago -May be secondary to illness -Trend -Treat underlying cause which I suspect is infection related -02/28: Continue to monitor for improvement now the patient has had antibiotics initiated #Overactive bladder -Continue oxybutynin #GERD -Continue PPI #Hypertension/chronic heart failure with preserved ejection fraction -EF within normal limits in 2019 but had stage I diastolic dysfunction -Continue metoprolol -Daily weights, I's and O's -02/28: Continue to monitor BP, daily weights, I's and O's/fluid status #DVT ppx: SCDs Chey Bates MD Time spent in the patient's overall evaluation,decision-making process, review of diagnostic data, adjustment of management, discussion with other providers, nursing nursing and ancillary staff involved in patient's care documentation, 40 minutes Charges/Coding Visit Charges Inpatient E&M: 28941 Subs Hosp L2
--- NOTE | 2023-02-28 08:56 | NURSING ---
Patient peritoneal catheter dressing soiled & not sticking to skin. This RN removed old dressing. catheter exit site appears slightly reddened & patient c/o of tenderness around exit site. site cleansed w/ chlorohexidine & new sterile 4x4 dressing applied- secured on 3 sides w/ surgical tape w/ no tape applied to catheter tubing- findings discussed w/ SLAG EXPANDER Judith Ocampo.
[2023-02-28] MEDS: Cefepime HCl 2 GM in 0.9% Normal Saline (100mL MB+) 100 ML IV (09:10)
[2023-02-28] MEDS: 0.9% Saline Lock 10 ML Syringe IV (09:14)
[2023-02-28] MEDS: Lactulose 20 GM/30 ML UDC PO ×2 (09:15→17:45)
[2023-02-28] MEDS: Oxycodone/Apap 5/325 Tablet PO ×2 (09:16→17:06)
[2023-02-28] MEDS: Senna/Docusate Sodium 1 Tablet 2 TABLET PO (09:17)
[2023-02-28] MEDS: Metoprolol Tartrate 25 MG Tablet 12.5 MG PO ×2 (09:17→21:16)
[2023-02-28] MEDS: Pantoprazole Sodium 40 MG Tablet PO (09:18)
[2023-02-28] MEDS: Tolterodine Tartrate 2 MG CAP.SA PO (09:18)
--- NOTE | 2023-02-28 09:37 | PN.RENAL_ITS ---
Subjective Subjective Resting in bed. Family at bedside. Had small bowel movement last evening. Complains of abdominal pain. Objective Data Objective Data Vital Signs: Vital Signs Temp Pulse Resp BP Pulse Ox O2 Del Method 98.6 F 119 H 16 128/76 H 98 Room Air 02/28/23 09:07 02/28/23 09:17 02/28/23 09:07 02/28/23 09:17 02/28/23 09:07 02/28/23 09:07 Oxygen Delivery Method Room Air Weight: 96.1 kg Body Mass Index (BMI) 32.2 Intake & Output: Intake and Output for Last 24 Hours 02/26/23 02/27/23 02/28/23 23:59 23:59 23:59 Intake Total 1600 / 1600 Output Total 550 / 1000 450 / 450 Balance 1050 / 600 -450 / -450 Lab / Micro Data 02/28/23 05:32 02/28/23 05:32 Labs: Laboratory Results - last 24 hr 02/27/23 08:45: Fluid Source PERITONEAL FLUID, Fluid Color COLORLESS, Fluid Appearance SL CLDY, Fluid WBC 1.144, Fluid RBC < 0, Fluid Tot Cell Count 1.190, Fld Polynuclear WBCs # 0.765, Fld Polynuclear WBCs % 66.9, Fluid Mononuclear WBCs 0.379, Fld Mononuclear WBCs % 33.1, Fl Pathologist Comment May follow, Fluid Comment 2 SEE COMMENT 02/28/23 05:32: WBC 6.5, RBC 3.50 L, Hgb 11.2 L, Hct 33.9 L, MCV 96.9 H, MCH 32.0, MCHC 33.0, RDW Std Deviation 49.6 H, RDW Coeff of Misael 13.8, Plt Count 113 L, MPV 9.4, Immature Gran % (Auto) 0.300, Neut % (Auto) 84.4 H, Lymph % (Auto) 6.8 L, [place] % (Auto) 6.2, Eos % (Auto) 1.8, Baso % (Auto) 0.5, Absolute Neuts (auto) 5.5, Absolute Lymphs (auto) 0.44 L, Nucleated RBC % 0, Differential Comment SCANNED, Sodium 138, Potassium 4.7, Chloride 106, Carbon Dioxide 23.0, Anion Gap 9, BUN 26 H, Creatinine 3.00 H, Estim Creat Clear Calc 20.27, Est GFR (MDRD) Af Amer 26 L, Est GFR (MDRD) Non-Af 22 L, BUN/Creatinine Ratio 8.7 L, Glucose 100, Calcium 8.4 L, Phosphorus 2.1 L, Magnesium 2.4, Total Bilirubin 0.70, AST 17, ALT 21, Alkaline Phosphatase 115, Total Protein 5.3 L, Albumin 2.4 L, Globulin 2.9, Albumin/Globulin Ratio 0.8 L Rhythm Strip Rhythm Strip: Sinus Tach Rate: 125 Ectopy: None Physical Exam Narrative Alert and oriented x3, no apparent stress S1, S2, RRR Lung sounds clear anteriorly and posteriorly, no wheezes, rhonchi or rales noted Abdomen soft, positive bowel sounds, tender upon palpation. PD catheter intact. No drainage noted around PD catheter/ insertion site No edema to legs or arms Left upper arm AV fistula positive thrill and bruit Assessment & Plan Assessment/Plan (1) Abdominal pain: (2) ESRD on peritoneal dialysis: PLAN: Plan This is a 77-year-old male with past medical history significant for end-stage renal disease who recently started peritoneal dialysis (had been dialyzing in- center at [facility] via left UA AVF; followed by Dr. Pacheco) who was admitted to the hospital after presenting with complaints of abdominal pain, concern for peritonitis. Patient last had his peritoneal dialysis on 02/25/2023. - abdominal pain/ PD fluid analysis WBC 1100 consistent with peritonitis; Patient (with help of ) attempted to instill 2 L of 1.5% Dianeal solution into abdomen yesterday however unable to tolerate as patient immediately devel oped pain to abdomen as soon as solution was instilled. PD fluid analysis with WBC 1100 consistent with peritonitis, cultures pending. Given concern for Peritonitis recommend transfer to tertiary center. We will hold off on peritoneal dialysis today, patient does have functioning AV fistula for he modialysis therefore patient to undergo hemodialysis today over 3.5 hours on 2K bath with minimal to no fluid removal. Patient appears to be near dry weight. CT scan abdomen reviewed, diverticulosis without evidence of acute diverticulitis. CXR clear. Patient has received IV antibiotics, vancomycin, ceftriaxone. Cefepime ordered. Continue laculose prn for constipation. - anemia of chronic disease; hgb 11.2 - bps acceptable on metoprolol - discussed with Dr. Bates
[2023-02-28] MEDS: 0.9% Normal Saline 1,000 ML IV.SOLN. 1000 ML OPERA.SITE (11:05)
[2023-02-28] MEDS: PureFlow B 2K Dialysis Soln 1 BAG 6 BAG PF (11:05)
[2023-02-28 13:19] LABS: Pathologist Comment/Body Fluid Reviewed
[2023-02-28] MEDS: Lidocaine/Prilocaine HCl 5 GM Tube TOPICAL (15:09)
--- NOTE | 2023-02-28 20:31 | NURSING ---
Notified [facility] of transfer tonight to [facility]. States eta is 45 minutes
[2023-02-28] MEDS: Gabapentin 100 MG Capsule 200 MG PO (21:16)
--- NOTE | 2023-02-28 21:54 | NURSING ---
Hospitalist Dr Mitchell was notified that patient has been transferred.
== END 2023-02-28 21:40 | disposition short-term general hospital (02) | DRG 919 ==
LOC: ED 04:54 → PCU 07:59
PROVIDERS: Admitting Provider Internal Medicine; Emergency Provider Emergency Medicine; PCP Internal Medicine; Visit Provider Internal Medicine
DX: T85.71XA Infection and inflammatory reaction due to peritoneal dialysis catheter, initial encounter (principal); K65.0 Generalized (acute) peritonitis; N18.6 End stage renal disease; I13.2 Hypertensive heart and chronic kidney disease with heart failure and with stage 5 chronic kidney disease, or end stage renal disease; I50.32 Chronic diastolic (congestive) heart failure; D63.1 Anemia in chronic kidney disease; Z99.2 Dependence on renal dialysis; M06.9 Rheumatoid arthritis, unspecified; K21.9 Gastro-esophageal reflux disease without esophagitis; G47.33 Obstructive sleep apnea (adult) (pediatric); K59.00 Constipation, unspecified; Y82.8 Other medical devices associated with adverse incidents; N32.81 Overactive bladder; N40.0 Benign prostatic hyperplasia without lower urinary tract symptoms; Z87.891 Personal history of nicotine dependence
CPT/HCPCS: 36415; 70450; 71045; 74177; 80048; 80053; 80076; 81001; 83605; 83690; 83735; 84100; 84484; 85025; 85610; 85730; 87040; 87070; 87075; 87077; 87086; 87088; 87186; 87205; 89050; 90937; 93005; 94668; 97162; 97166; 99283; 99284; J7030; J7040; J7050; Q9967; A4216; G0257

== ENCOUNTER 2023-03-17 19:35 | Emergency (ER) | payer MEDICARE, OTHER, SELFPAY ==
[2023-03-17 19:36] VITALS: BP 119/70; PULSE 104; RESP 16; TEMP 36.4; O2SAT 98
--- NOTE | 2023-03-17 20:11 | EDS_ITS ---
<Statement entered by Maegan Donohue MD - 03/17/23 21:04> I have personally performed a face to face assessment of the patient and have reviewed the KUSH Note. Patient presents secondary to abdominal wound packing. He had surgery at [facility] on the to have his peritoneal dialysis catheter removed. He had packing placed at that time. He has seen his primary care physician as well as another local ER since that time but no one else has removed the packing. He states he went to his hemodialysis appointment today and they told him it should be removed before it gets infected. He has not followed up with his surgeon and just presented to the emergency room hoping to get his packing removed. Patient lying in bed no acute distress. Heart is regular rate and rhythm. Lung sounds are clear. Abdominal exam reveals abdomen to be soft and nontender. He has a small wound that is packed with iodoform gauze just to the right of the umbilicus. No surrounding erythema. No drainage. Packing is removed without difficulty. Wound is cleansed. Antibiotic ointment is placed along with a dressing. Wound care as discussed. HPI History of Present Illness Chief Complaint: Wound Narrative Narrative: Patient is a 77-year-old male with history of Zach's disease, end-stage renal disease on dialysis GERD, CHF who presents to the emergency department for a wound check. Patient had peritoneal dialysis catheter removed on March 05, 2023. He still has the packing in from the original surgery on the and was told he needs to get it removed. The patient's family, the patient did not call the surgeons office, states he did not get great instructions. Patient denies any significant pain, he does would like this out. [facility] Medical History Abnormal stress echo Anemia Arthritis Back pain BPH (benign prostatic hyperplasia) Cardiology follow-up encounter Chest pain Chronic kidney disease, stage 3 (moderate) Chronic systolic heart failure Claudication Dialysis patient Essential hypertension Former smoker Gastric reflux GERD (gastroesophageal reflux disease) Hard of hearing History of CHF (congestive heart failure) History of echocardiogram History of edema History of renal disease History of tobacco use Irregular heart beat Neuropathy Normal stress echocardiogram Obstructive sleep apnea Prediabetes Prostate disease Rheumatoid arthritis Shortness of breath Wears dentures Wears glasses Wears hearing aid Zach's granulomatosis Home Medications omeprazole 40 mg capsule,delayed release 40 mg PO DAILY stomach 11/04/18 [History Last Taken 01/18/22] gabapentin 100 mg tablet 200 mg PO QHS 08/29/22 [History Last Taken Unknown] handicap placard #1 ea 08/29/22 [Rx Last Taken Unknown] metoprolol tartrate 25 mg tablet 25 mg PO DAILY BP 01/14/23 [History Last Taken Unknown] oxycodone-acetaminophen 5 mg-325 mg tablet (Percocet) 1 tab PO Q8H PRN pain 30 days #90 tabs 02/17/23 [Rx Last Taken Unknown] azathioprine 50 mg tablet 50 mg PO DAILY 03/12/23 [History Last Taken Unknown] handicap placard #1 ea 03/12/23 [Rx Last Taken Unknown] levofloxacin 500 mg tablet 500 mg PO Q48H 03/12/23 [History Last Taken Unknown] minocycline 100 mg capsule 100 mg PO BID 03/12/23 [History Last Taken Unknown] mirtazapine 15 mg tablet 15 mg PO QHS 03/12/23 [History Last Taken Unknown] polyethylene glycol 3350 17 gram/dose oral powder (ClearLax) 4 g PO DAILY 03/12/23 [History Last Taken Unknown] pregabalin 25 mg capsule 25 mg PO BID 03/12/23 [History Last Taken Unknown] sennosides 8.6 mg tablet (senna) 17.2 mg PO BID 03/12/23 [History Last Taken Unknown] Allergy/AdvReac Type Severity Reaction Status Date / Time aspirin AdvReac Severe cannot Verified 03/12/23 09:43 take d/t Zach's Vasculitis Family History Mother CAD (coronary artery disease) Congestive heart failure Father Prostate cancer Lung cancer Brother Colon cancer Sister Colon cancer Grandmother Diabetes Surgical History AV fistula Cataract extraction status H/O arthroscopy of left knee (1988) History of colonoscopy History of endoscopy (01/02/16) History of left heart catheterization (11/12/18) History of prostate biopsy (01/11/14) History of total right hip arthroplasty (02/05/16) Hx of bilateral cataract extraction S/P arthroscopic surgery of left knee (1989) S/P TURP Status post biopsy of kidney (12/2013) Social History household members: spouse housing: house 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 Smoking Status: Former smoker quit date: 07/26/81 pack-years: 19 Electronic Cigarette Use: not used alcohol intake: never substance use type: does not use what type of physical activity do you participate in: none seatbelt use: always do you feel safe at home: Yes ROS ROS ED ROS Narrative Constitutional: Negative for fever, chills, weight loss, weakness Eyes: Negative for vision loss, vision change, double vision ENT: Negative for any sore throat, ear pain, congestion Cardiovascular: Negative for any chest pain, tightness, palpitations Respiratory: Negative for any cough, sputum production, hemoptysis, dyspnea, dyspnea on exertion, orthopnea Gastrointestinal: Negative for any abdominal pain, nausea, vomiting, diarrhea, constipation, blood in stool, blood in vomit : Negative for any urinary frequency, dysuria, retention, blood in urine Muscle skeletal: Negative for any muscle joint pain, stiffness, myalgias, arthralgias, neck pain, back pain Neurological: Negative for any headache, syncope, numbness or tingling, dizziness Skin: Negative for any rashes, lumps, itching, abrasions, lacerations. Patient has a packing to the right lower abdomen where the peritoneal dialysis port was located. Psychiatric: Negative for any depression, anxiety, stress, suicidal ideation, homicidal ideation Hematologic: Negative for any easy bruising, excessive bruising, easy bleeding Allergies: Negative for any eczema, hives, rash EXAM Physical Exam Narrative Exam Narrative: Vital signs reviewed. HEET: Head normocephalic atraumatic, TMs clear bilaterally. Posterior pharynx is clear, moist mucous membranes. Nares clear bilaterally. Neck: Supple with no lymphadenopathy or tenderness. No signs of meningismus, negative jolt sign. Cardiac: Regular rate and rhythm no murmurs gallops or rubs, equal peripheral pulses bilaterally. Respiratory: Lungs clear to auscultation bilaterally. No chest tenderness. Abdomen: Soft, nontender, nondistended. No abdominal bruit or pulsatile masses. No hepatosplenomegaly to the right lower quadrant has a packing 1 inch where the peritoneal catheter was. There is no crepitus, there is no peritoneal signs. Active bowel sounds in all quadrants. There is some drainage however no significant cellulitis. Extremities: No peripheral edema, no signs of gross trauma or deformity. Active full range of motion of all extremities. Neuro: Cranial nerves II through XII intact, no focal neurological deficits. Skin: Clean dry and intact with no rash, purpura, petechiae, vesicles or pustules. Backs/flank: No CVA tenderness, no midline spinal tenderness, no deformity. Psych: Normal mood and affect. No SI, HI or acute psychosis. Const Vital Signs: 03/17/23 19:36 Temperature 97.5 F L Temperature Source Temporal Pulse Rate 104 H Respiratory Rate 16 Blood Pressure 119/70 Blood Pressure Mean 86 Pulse Ox 98 Oxygen Delivery Method Room Air Positive well nourished and well developed General Appearance ED: well developed MDM MDM Treatment and Re-Evaluation :: Patient appears generally well, patient appears nontoxic, vital signs are stable. Presenting to the emergency department with complaints of a wound chec k. Patient has a packing in place to the right lower abdomen where the peritoneal dialysis catheter was. They are here to have it removed. They were unsure about the instructions, they have not called the surgeons office from [facility] regarding this issue. The attending in the emergency department did pull out the packing. Roughly 14 cm long. It was clean. Patient was redressed. Patient continue to follow-up outpatient. At this time, is no evidence of any cellulitis, deep tissue infection. Instructed return for any worsening symptoms. Patient will keep his scheduled with his hemodialysis. Stable for discharge Discharge Plan Triage Chief Complaint: Wound ED Midlevel Provider: Puneet Sanchez ED Provider: Maegan Donohue Dx/Rx/DC Orders Clinical Impression: Visit for wound check Instructions: ED Wound Care Prescriptions: No Action omeprazole 40 mg capsule,delayed release(DR/EC) 40 mg PO DAILY gabapentin 100 mg tablet 200 mg PO QHS (DME) handicap placard See Rx Instructions .ROUTE .MEDSUPPLY Qty: 1 0RF Rx Instructions: Length of time: 5 years Diagnosis: Impaired physical mobility z74.09 sennosides [senna] 8.6 mg tablet 17.2 mg PO BID minocycline 100 mg capsule 100 mg PO BID azathioprine 50 mg tablet 50 mg PO DAILY mirtazapine 15 mg tablet 15 mg PO QHS polyethylene glycol 3350 [ClearLax] 17 gram/dose powder 4 g PO DAILY levofloxacin 500 mg tablet 500 mg PO Q48H pregabalin 25 mg capsule 25 mg PO BID (DME) handicap placard See Rx Instructions .ROUTE .MEDSUPPLY Qty: 1 0RF Rx Instructions: Length of time: 5 years Diagnosis: Impaired physical mobility z74.09 metoprolol tartrate 25 mg tablet 25 mg PO DAILY Patient Comments: Heart medication oxycodone-acetaminophen [Percocet] 5-325 mg tablet 1 tab PO Q8H PRN (Reason: pain) 30 Days Qty: 90 0RF Primary Care Provider: Catalina Noguera Referrals: Catalina Noguera MD [Primary Care Provider] - Activity Restrictions/Additional Instructions: Please keep the area clean and dry. Follow-up outpatient. Disposition Disposition: Home, Self Care
== END 2023-03-17 20:43 | disposition home or self-care (01) ==
LOC: ED 20:37
PROVIDERS: Emergency Provider Emergency Medicine; PCP Internal Medicine; Visit Provider Emergency Medicine
DX: Z48.01 Encounter for change or removal of surgical wound dressing (principal); I13.2 Hypertensive heart and chronic kidney disease with heart failure and with stage 5 chronic kidney disease, or end stage renal disease; Z99.2 Dependence on renal dialysis; I50.22 Chronic systolic (congestive) heart failure; N18.6 End stage renal disease; Z87.891 Personal history of nicotine dependence
CPT/HCPCS: 99282

== ENCOUNTER → 2023-04-03 | Outpatient (CLI) | payer MEDICARE, OTHER, SELFPAY ==
[2023-04-03 13:59] LABS: Absolute Lymphocyte Count 0.63 X10^3/uL (0.83-4.51); Absolute Neutrophil Count 3.5 X10^3/uL (2.0-7.7); Basophil# 0.05 X10^3/uL; Eosinophil# 0.21 X10^3/uL; Eosinophils% 4.4 % (0-5); Hemoglobin 9.2 g/dL (13.0-16.5); Lymphocyte # 0.63 X10^3/ul (0.83-4.51); Lymphocyte % 13.1 % (19-41); Mean Corp Hgb Conc 30.7 g/dL (32-36); Mean Platelet Vol. 9.6 fl (6.2-12.0); Monocyte# 0.43 X10^3/uL; Monocyte% 8.9 % (0-10); NRBC Flagged by Analyzer 0 % (0-5); Neutrophil # 3.47 X10^3/uL (2.7-7.7); Platelet Count 101 K/mm3 (150-450); RBC Distribution Width CV 15.1 % (11.6-14.6); RBC Distribution Width SD 56.4 fl (35.1-43.9); Red Blood Count 2.97 M/mm3 (4.6-6.2); White Blood Count 4.8 K/mm3 (4.4-11.0)
[2023-04-03 14:25] LABS: AST(SGOT) 18 U/L (15-37); Alanine Aminotransfer ALT/SGPT 17 U/L (16-61); Albumin, Serum 2.7 g/dL (3.2-5.0); Alkaline Phosphatase 85 U/L (45-117); Anion Gap 3 (5-15); BUN 27 mg/dL (7-18); BUN/Creat Ratio 8.4 RATIO (10-20); Calcium,Total 8.5 mg/dL (8.5-10.1); Chloride 102 mmol/L (98-107); Creatinine, Serum 3.22 mg/dL (0.70-1.30); EST Glomerular Filtration Rate 20 mL/min (>60); Est Glom Filt Rate - Afr Amer 24 mL/min (>60); Ferritin 754 ng/mL (26-388); Globulin 2.8 g/dL (2.2-4.2); Glucose 132 mg/dL (74-106); Iron 53 ug/dL (65-175); Iron Binding Capacity,Total 220 ug/dL (250-450); PERCENT IRON SATURATION 24.1 % (15.0-55.0); Potassium 3.8 mmol/L (3.5-5.1); Protein, Total 5.5 g/dL (6.4-8.2); Sodium Level 138 mmol/L (136-145); Vitamin B12 538 pg/mL (211-911)
[2023-04-03 14:28] LABS: Hemoglobin A1c 5.8 % (3.8-5.6)
== END | disposition home or self-care (01) ==
LOC: LAB 13:24
PROVIDERS: PCP Internal Medicine; Visit Provider Internal Medicine
DX: I50.22 Chronic systolic (congestive) heart failure (principal); Z99.2 Dependence on renal dialysis; N18.6 End stage renal disease; E53.8 Deficiency of other specified B group vitamins; R73.03 Prediabetes
CPT/HCPCS: 36415; 80053; 82607; 82728; 83036; 83540; 83550; 85025

== ENCOUNTER → 2023-05-26 | Outpatient (CLI) | payer MEDICARE, OTHER, SELFPAY | END | disposition home or self-care (01) | LOC: LAB 14:00 | PROVIDERS: PCP Internal Medicine; Referring Provider Nurse Practitioner; Visit Provider Nurse Practitioner | DX: R97.20 Elevated prostate specific antigen [PSA] (principal) | CPT/HCPCS: 36415; 84153 ==

== ENCOUNTER → 2023-09-09 | Outpatient (CLI) | payer MEDICARE, OTHER, SELFPAY | END | disposition home or self-care (01) | PROVIDERS: PCP Internal Medicine; Visit Provider Internal Medicine | DX: G89.29 Other chronic pain (principal); Z79.2 Long term (current) use of antibiotics | CPT/HCPCS: 36415 ==

== ENCOUNTER → 2024-01-27 | Outpatient (CLI) | payer MEDICARE, OTHER, SELFPAY ==
--- NOTE | 2024-01-27 08:41 | BI_ITS ---
MAMMOGRAPHY - BILATERAL DIAGNOSTIC REASON FOR EXAM: Male, 78 years old. 6 month history of bilateral breast pain. PERTINENT HISTORY: Non-contributory. TECHNIQUE: Digital bilateral breast sascha (3D mammographic acquisition) in the CC and MLO projections. 2-D mediolateral oblique (MLO) and craniocaudad (CC) views of both breasts were obtained. CAD: Full Field Digital Mammography with Computer Added Detection was performed. COMPARISON: None. Baseline examination. FINDINGS: Breast Composition: There are scattered areas of fibroglandular density. Asymmetry of breast tissue in the retroareolar region of both breasts more prominent on the left side. This most likely represents gynecomastia although a targeted ultrasound correlation recommended. No other significant abnormalities are identified. BI/DIAG MAMM W/CAD, BILAT IMPRESSION: Asymmetrical retroareolar breast tissue more prominent on the left side suggestive of bilateral gynecomastia. Correlation with a targeted ultrasound recommended. ASSESSMENT CATEGORY: BIRADS Category 0: Incomplete. Need additional imaging evaluation. A letter regarding these results will be sent to the patient by the facility within 30 days. Approximately 10% of breast cancers are not detected by mammography. A normal mammogram should not delay biopsy of a clinically suspicious abnormality. Electronically Signed: Robin Bingham MD at 10:41 EDT ,
--- NOTE | 2024-01-27 08:41 | US_ITS ---
STUDY: ULTRASOUND BREAST - RIGHT REASON FOR EXAM: Male, 78 years old. Pain in the right breast. TECHNIQUE: Axial and longitudinal images of the RIGHT breast were performed with a high resolution ultrasound transducer. # OF IMAGES: 25 COMPARISON: Comparison is made with prior mammogram done earlier today. FINDINGS: RIGHT Breast: The retroareolar region of the breast was examined with ultrasound. There is evidence of retroareolar breast tissue in keeping with gynecomastia. IMPRESSION: Findings suggestive of gynecomastia. ASSESSMENT CATEGORY: BIRADS Category 2: Benign. A letter regarding these results will be sent to the patient by the facility within 30 days. Electronically Signed: Robin Bingham MD at 14:45 EDT , STUDY: ULTRASOUND BREAST - LEFT REASON FOR EXAM: Male, 78 years old. Retroareolar pain. TECHNIQUE: Axial and longitudinal images of the LEFT breast were performed with a high resolution ultrasound transducer. # OF IMAGES: 25 COMPARISON: Comparison is made with prior mammogram done earlier today. FINDINGS: LEFT Breast: The retroareolar region of the left breast was examined with ultrasound. There is evidence of glandular tissue in keeping with gynecomastia. US/Breast Limited Unilateral IMPRESSION: Findings in keeping with gynecomastia. ASSESSMENT CATEGORY: BIRADS Category 2: Benign. A letter regarding these results will be sent to the patient by the facility within 30 days. Electronically Signed: Robin Bingham MD at 14:46 EDT ,
== END | disposition home or self-care (01) ==
LOC: OPBI 08:40
PROVIDERS: PCP Internal Medicine; Referring Provider Physician Assistant; Visit Provider Physician Assistant
DX: N64.4 Mastodynia (principal)
CPT/HCPCS: 76642; 77062; 77066; G0279

== ENCOUNTER → 2024-03-09 | Outpatient (CLI) | payer MEDICARE, OTHER, SELFPAY ==
[2024-03-09 12:24] LABS: Absolute Lymphocyte Count 0.67 X10^3/uL (0.83-4.51); Absolute Neutrophil Count 3.3 X10^3/uL (2.0-7.7); Basophil# 0.03 X10^3/uL; Basophil% 0.7 % (0-1); Eosinophil# 0.08 X10^3/uL; Eosinophils% 1.8 % (0-5); Hematocrit 39.7 % (40-54); Hemoglobin 12.9 g/dL (13.0-16.5); Lymphocyte # 0.67 X10^3/ul (0.83-4.51); Mean Corp Hgb Conc 32.5 g/dL (32-36); Mean Corpuscular Hgb 31.6 pg (27.0-32.0); Mean Corpuscular Volume 97.3 fL (80-94); Mean Platelet Vol. 9.9 fl (6.2-12.0); Monocyte# 0.37 X10^3/uL; Monocyte% 8.3 % (0-10); NRBC Flagged by Analyzer 0 % (0-5); Neutrophil # 3.31 X10^3/uL (2.7-7.7); Neutrophil % 73.8 % (47-70); Platelet Count 137 K/mm3 (150-450); RBC Distribution Width CV 13.2 % (11.6-14.6); RBC Distribution Width SD 47.8 fl (35.1-43.9); Red Blood Count 4.08 M/mm3 (4.6-6.2); White Blood Count 4.5 K/mm3 (4.4-11.0)
[2024-03-09 12:37] LABS: Hemoglobin A1c 6.3 % (3.8-5.6)
[2024-03-09 12:47] LABS: AST(SGOT) 16 U/L (15-37); Alanine Aminotransfer ALT/SGPT 21 U/L (16-61); Albumin, Serum 3.4 g/dL (3.2-5.0); Alkaline Phosphatase 90 U/L (45-117); Anion Gap 5 (5-15); BUN 34 mg/dL (7-18); BUN/Creat Ratio 7.4 RATIO (10-20); Calcium,Total 9.5 mg/dL (8.5-10.1); Chloride 97 mmol/L (98-107); Cholesterol 158 mg/dL (200); Creatinine, Serum 4.59 mg/dL (0.70-1.30); EST Glomerular Filtration Rate 13 mL/min (>60); Est Glom Filt Rate - Afr Amer 16 mL/min (>60); Globulin 3.5 g/dL (2.2-4.2); Glucose 151 mg/dL (74-106); High Density Lipoprotein 44 mg/dL; Potassium 3.6 mmol/L (3.5-5.1); Protein, Total 6.9 g/dL (6.4-8.2); Sodium Level 135 mmol/L (136-145); Triglycerides 154 mg/dL; Very Low Density Lipoprotein 31 mg/dL (5-40)
== END | disposition home or self-care (01) ==
LOC: BIMLAB 10:08
PROVIDERS: PCP Internal Medicine; Visit Provider Internal Medicine
DX: I50.22 Chronic systolic (congestive) heart failure (principal); R73.03 Prediabetes
CPT/HCPCS: 36415; 80053; 80061; 83036; 85025

== ENCOUNTER 2024-04-19 13:19 | Emergency (ER) | payer MEDICARE, OTHER, SELFPAY ==
[2024-04-19] VITALS (7 sets, daily range): BP systolic 105–128; BP diastolic 70–87; PULSE 84–101; RESP 16–19; TEMP 36.1–37.2; O2SAT 94–96; BMI 35.1
--- NOTE | 2024-04-19 15:25 | EX.ED.DYSGE1 ---
HPI History of Present Illness Chief Complaint: Weakness Informant: patient, spouse/S.O. and family Onset/Context/Timing Onset: Days Context: Gradual Onset Timing: Continuous Quality: Weakness Location: Generalized Worsened by: Activity Relieved by: Nothing Narrative Narrative: Patient presents with generalized weakness that has been getting worse over the past few days. Patient went to dialysis today and had a complete run of dialysis. Patient states that the staff at the dialysis center told him he was too weak to go home and that he should go to the emergency department. Patient states he has been having a cough. Patient denies any shortness of breath. Patient denies any fevers or chills. Patient states his weakness is worse with any activity. Patient states he feels weak all over. Patient states nothing seems to help with it. Patient admits to occasional low back pain. [facility] Medical History Dialysis patient Wears hearing aid Wears dentures Wears glasses Arthritis Prostate disease Anemia History of renal disease Back pain Gastric reflux Neuropathy History of edema History of CHF (congestive heart failure) History of echocardiogram Normal stress echocardiogram Cardiology follow-up encounter Family history of malignant neoplasm of colon Rheumatoid arthritis GERD (gastroesophageal reflux disease) Former smoker Irregular heart beat Chronic systolic heart failure Hard of hearing Obstructive sleep apnea Zach's granulomatosis BPH (benign prostatic hyperplasia) Chronic kidney disease, stage 3 (moderate) Claudication Prediabetes Essential hypertension History of tobacco use Shortness of breath Chest pain Abnormal stress echo Home Medications ?Medication ?Instructions ?Recorded ?Last Taken ?Type handicap placard #1 ea 08/29/22 Unknown Rx handicap placard #1 ea 03/12/23 Unknown Rx salicylic acid 6 % topical cream 1 applic topical QHS #454 grams 09/09/23 Unknown Rx triamcinolone acetonide 0.1 % 1 applic topical DAILY PRN 09/09/23 Unknown Rx topical ointment rash/itching #15 grams tamsulosin 0.4 mg capsule 0.8 mg PO QDAY 01/15/24 Unknown History azathioprine 50 mg tablet 50 mg PO DAILY #30 tabs 02/06/24 Unknown Rx omeprazole 40 mg capsule,delayed 40 mg PO DAILY stomach #90 caps 02/09/24 Unknown Rx release metoprolol tartrate 25 mg tablet 25 mg PO DAILY BP #90 tabs 03/09/24 Unknown Rx mirtazapine 15 mg tablet 15 mg PO QHS #30 tabs 03/09/24 Unknown Rx gabapentin 100 mg capsule 200 mg (2 x 100 mg) PO QHS #60 caps 04/12/24 Unknown Rx oxycodone-acetaminophen 5 mg-325 1 tab PO Q8H PRN pain 30 days #90 04/12/24 Unknown Rx mg tablet (Percocet) tabs pregabalin 25 mg capsule 25 mg PO BID #60 caps 04/12/24 Unknown Rx Allergy/AdvReac Type Severity Reaction Status Date / Time finasteride Allergy Intermediate mastodynia Verified 04/19/24 13:19 aspirin AdvReac Severe cannot Verified 04/19/24 13:19 take d/t Zach's Vasculitis Family History Mother CAD (coronary artery disease) Congestive heart failure Father Prostate cancer Lung cancer Brother Colon cancer Sister Colon cancer Grandmother Diabetes Surgical History Hx of bilateral cataract extraction S/P TURP Cataract extraction status AV fistula History of left heart catheterization (11/12/18) History of endoscopy (01/02/16) History of prostate biopsy (01/11/14) S/P arthroscopic surgery of left knee (1989) H/O arthroscopy of left knee (1988) Status post biopsy of kidney (12/2013) History of total right hip arthroplasty (02/05/16) History of colonoscopy Social History household members: spouse housing: house 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 status: 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 Smoking Status: Former smoker quit date: 07/26/81 pack-years: 19 Electronic Cigarette Use: not used alcohol intake: never substance use type: does not use what type of physical activity do you participate in: none seatbelt use: always do you feel safe at home: Yes ROS ROS ED Constitutional Constitutional ED: Denies chills or fever(s) Eyes Eyes: Denies blurry vision or change in vision ENT ENT ED: Reports rhinorrhea and sore throat Cardiovascular Cardiovascular: Denies chest pain or palpitations Respiratory/Chest Respiratory/Chest: Reports cough; Denies dyspnea Gastrointestinal Gastrointestinal: Denies nausea or vomiting Genitourinary Genitourinary ED: Denies dysuria or hematuria Musculoskeletal Musculoskeletal: Reports back pain; Denies neck pain Integumentary Denies abscess or rash Neurologic Neurologic: Denies headache(s) or weakness Allergic/Immunologic Allergic/Immunologic ED: Denies mouth swelling or urticaria EXAM Physical Exam Const Vital Signs: 04/19/24 13:19 04/19/24 14:58 04/19/24 14:58 Temperature 98.9 F 98.3 F Temperature Source Oral Oral Pulse Rate 101 H 89 Pulse Rate [Lying] Pulse Rate [Sitting (for 1 minute prior to obtaining)] Pulse Rate [Standing (for 1 minute prior to obtaining)] Respiratory Rate 18 19 H 19 H Respiratory Effort Respiratory Pattern Blood Pressure 122/75 H 119/75 Blood Pressure [Lying] Blood Pressure [Sitting (for 1 minute prior to obtaining)] Blood Pressure [Standing (for 1 minute prior to obtaining)] Blood Pressure Mean 90 89 Blood Pressure Mean [Lying] Blood Pressure Mean [Sitting (for 1 minute prior to obtaining)] Blood Pressure Mean [Standing (for 1 minute prior to obtaining)] Pulse Ox 95 96 96 Oxygen Delivery Method Room Air Room Air Room Air 04/19/24 14:59 04/19/24 14:59 04/19/24 15:57 Temperature 98.8 F Temperature Source Oral Pulse Rate 91 Pulse Rate [Lying] Pulse Rate [Sitting (for 1 minute prior to obtaining)] Pulse Rate [Standing (for 1 minute prior to obtaining)] Respiratory Rate 16 Respiratory Effort Normal Non-Labored Respiratory Pattern Normal Blood Pressure 111/74 Blood Pressure [Lying] Blood Pressure [Sitting (for 1 minute prior to obtaining)] Blood Pressure [Standing (for 1 minute prior to obtaining)] Blood Pressure Mean 86 Blood Pressure Mean [Lying] Blood Pressure Mean [Sitting (for 1 minute prior to obtaining)] Blood Pressure Mean [Standing (for 1 minute prior to obtaining)] Pulse Ox 96 Oxygen Delivery Method Room Air Room Air 04/19/24 17:00 04/19/24 18:55 04/19/24 18:57 Temperature 98.1 F 98.1 F Temperature Source Oral Oral Pulse Rate 86 84 Pulse Rate [Lying] 84 Pulse Rate [Sitting (for 1 minute prior to obtaining)] 84 Pulse Rate [Standing (for 1 minute prior to obtaining)] 84 Respiratory Rate 19 H 18 Respiratory Effort Respiratory Pattern Blood Pressure 105/73 128/83 H Blood Pressure [Lying] 113/87 H Blood Pressure [Sitting (for 1 minute prior to obtaining)] 113/70 Blood Pressure [Standing (for 1 minute prior to obtaining)] 128/83 H Blood Pressure Mean 83 98 Blood Pressure Mean [Lying] 95 Blood Pressure Mean [Sitting (for 1 minute prior to obtaining)] 84 Blood Pressure Mean [Standing (for 1 minute prior to obtaining)] 98 Pulse Ox 95 96 Oxygen Delivery Method Room Air Positive well nourished and well developed General Appearance ED: well developed and NAD HEENT Reports moist mucous membranes Eyes PERRL and EOMs intact bilaterally General Eye ED: Negative for scleral icterus Neck supple and no JVD Resp normal respiratory effort and clear to auscultation bilaterally Cardio regular rate and regular rhythm GI non-tender and non-distended Palpation: soft Extremity normal to inspection General Extremety ED: Negative for edema or tenderness General Extremity: Negative for edema Neuro oriented x3, CN's II-XII intact bilaterally and no sensory deficits noted Sensorium / Orientation: alert Motor Exam: strength 5/5 throughout Psych mental status grossly normal Skin no rashes or lesions noted MDM MDM MDM Narrative Medical decision making narrative: Differential diagnosis includes urinary tract infection, pneumonia, electrolyte abnormality, cardiac dysrhythmia, cardiac ischemia, and viral illness. EKG will be obtained to assess for cardiac dysrhythmia and cardiac ischemia. Chest x-ray will be obtained to assess for pneumonia and pneumothorax. CBC will be obtained to assess for leukocytosis and anemia. Comprehensive metabolic profile will be obtained to assess for hepatic function, renal function, and electrolyte abnormality. Urinalysis will be obtained to assess for urinary tract infection and hematuria. COVID-19, influenza, and RSV PCR will be obtained to assess for viral illness. Lab Data Attestation: I reviewed the patient's lab results. Lab results narrative: CBC was reviewed. There is a mild anemia with a hemoglobin of 12.9 and hematocrit of 38.8. Platelets are slightly low at 142. The remainder is within normal limits. Comprehensive metabolic profile was reviewed. CO2 was 33. BUN was 22 and creatinine was 3.95. These are improved from previous results. Glucose was 134. Alkaline phosphatase was slightly elevated at 126. The remainder is within normal limits. Serum lactate was reviewed and was normal. PT with INR and PTT were reviewed and were within normal limits. COVID-19 PCR was reviewed and was negative. Influenza PCR was reviewed and was negative for influenza A and influenza B. RSV PCR was reviewed and was negative. Labs: Laboratory Results - last 24 hr 04/19/24 15:50 WBC 6.5 RBC 4.08 L Hgb 12.9 L Hct 38.8 L MCV 95.1 H MCH 31.6 MCHC 33.2 RDW Std Deviation 46.3 H RDW Coeff of Misael 13.2 Plt Count 142 L MPV 9.5 Immature Gran % (Auto) 0.300 Neut % (Auto) 78.4 H Lymph % (Auto) 9.6 L [place] % (Auto) 9.9 Eos % (Auto) 1.2 Baso % (Auto) 0.6 Absolute Neuts (auto) 5.1 Absolute Lymphs (auto) 0.63 L Nucleated RBC % 0 PT 13.8 INR 1.1 APTT 29.9 Sodium 136 Potassium 3.8 Chloride 96 L Carbon Dioxide 33.0 H Anion Gap 7 BUN 22 H Creatinine 3.95 H Estim Creat Clear Calc 18.41 Est GFR (MDRD) Af Amer 19 L Est GFR (MDRD) Non-Af 16 L BUN/Creatinine Ratio 5.6 L Glucose 134 H Lactic Acid 1.6 Calcium 9.5 Total Bilirubin 0.60 Direct Bilirubin 0.26 AST 23 ALT 34 Alkaline Phosphatase 126 H Total Protein 7.4 Albumin 3.6 Globulin 3.8 Radiography Diagnostic Testing: Clinical Impression(s) from Imaging Studies Chest X-Ray 04/19/24 16:05 IMPRESSION: No radiographic evidence of acute cardiopulmonary disease. Electronically Signed: Chance Gonzales DO at 16:31 EST Reading Location ID and State: [facility] / [place] Tel [phone], Service support , [place] and lateral chest x-ray was obtained. There are 2 views. On my independent interpretation, lung mccabe are clear. There is normal cardiac silhouette. Bony thorax is normal. There is no acute process noted. Radiologist also interpreted the x-ray and agrees. EKG Initial EKG: Attestation: I personally reviewed and interpreted this EKG as follows: Interpretation: Sinus Rhythm (With occasional PACs with a rate of 88) and No Acute Injury Pattern Comments: EKG was obtained. On my independent interpretation, it showed a normal sinus rhythm with occasional PACs with a rate of 88. [place] interval, QRS interval, and QTc intervals were all normal. [place] was normal. There are no acute ST or T wave changes. Treatment and Re-Evaluation :: Patient was given a dose of Tylenol here. Patient was advised of his findings. Patient was feeling better on reevaluation. Patient had no urine in his bladder to assess for urinary tract infection. Patient states he only makes minimal urine. Patient was able to ambulate here in the emergency department without difficulty. Patient feels better and wants to go home. Patient was instructed to follow-up with his primary care physician in 3 to 5 days. Patient was instructed to return if worse in any way. Patient understood and was agreeable with the plan. All questions were answered. Discharge Plan Triage Chief Complaint: Weakness ED Provider: Jesus Christian Dx/Rx/DC Orders Clinical Impression: Episode of generalized weakness, Zach's granulomatosis, Dialysis patient Instructions: ED Weakness (Uncertain Cause) Prescriptions: No Action (DME) handicap placard See Rx Instructions .ROUTE .MEDSUPPLY Qty: 1 0RF Rx Instructions: Length of time: 5 years Diagnosis: Impaired physical mobility z74.09 (DME) handicap placard See Rx Instructions .ROUTE .MEDSUPPLY Qty: 1 0RF Rx Instructions: Length of time: 5 years Diagnosis: Impaired physical mobility z74.09 triamcinolone acetonide 0.1 % ointment 1 applic topical DAILY PRN (Reason: rash/itching) Qty: 15 0RF salicylic acid 6 % cream 1 applic topical QHS Qty: 454 0RF Rx Instructions: hydrate skin for >=5 mins before use; occlude area overnight; wash off in morning mirtazapine 15 mg tablet 15 mg PO QHS Qty: 30 2RF metoprolol tartrate 25 mg tablet 25 mg PO DAILY Qty: 90 1RF tamsulosin 0.4 mg capsule 0.8 mg PO QDAY azathioprine 50 mg tablet 50 mg PO DAILY Qty: 30 0RF omeprazole 40 mg capsule,delayed release(DR/EC) 40 mg PO DAILY Qty: 90 1RF gabapentin 100 mg capsule 200 mg PO QHS Qty: 60 0RF pregabalin 25 mg capsule 25 mg PO BID Qty: 60 0RF oxycodone-acetaminophen [Percocet] 5-325 mg tablet 1 tab PO Q8H PRN (Reason: pain) 30 Days Qty: 90 0RF Primary Care Provider: Catalina Noguera Referrals: Catalina Noguera MD [Primary Care Provider] - 3-5 Days Print Language: Malian Disposition Disposition: Home, Self Care
--- NOTE | 2024-04-19 15:32 | EKG12_ITS ---
Test Reason : WEAKNESS Blood Pressure : */* mmHG Vent. Rate : 88 BPM Atrial Rate : 88 BPM P-R Int : 178 ms QRS Dur : 74 ms QT Int : 348 ms P-R-T Axes : 57 53 68 degrees QTcB Int : 421 ms Sinus rhythm with Premature supraventricular complexes Otherwise normal ECG When compared with ECG of 27-Feb-2023 04:51, Premature ventricular complexes are no longer Present Premature supraventricular complexes are now Present Confirmed by Fawad Whittaker ([id number]), business editor SHEFALI BRODY ([id number]) on 04/23/2024 6:47:47 AM Referred By: Confirmed By: Fawad Whittaker
[2024-04-19] MEDS: Acetaminophen 325 MG Tablet 650 MG PO (15:55)
--- NOTE | 2024-04-19 16:05 | RAD_ITS ---
INDICATION: Weakness EXAMINATION/TECHNIQUE: X-RAY - XR Chest 2 Views COMPARISON: FINDINGS: LINES/DEVICES: None. LUNGS: No consolidation, edema or effusion. No pneumothorax. MEDIASTINUM AND CARDIOVASCULAR STRUCTURES: Cardiac silhouette not enlarged. Central airways and mediastinal contour are unremarkable. BONES AND SOFT TISSUES: Degenerative vertebral changes. Compression of lower thoracic and upper lumbar vertebral segments. RAD/Chest PA and Lateral IMPRESSION: No radiographic evidence of acute cardiopulmonary disease. Electronically Signed: Chance Gonzales DO at 16:31 EST ,
[2024-04-19 16:10] LABS: Absolute Lymphocyte Count 0.63 X10^3/uL (0.83-4.51); Absolute Neutrophil Count 5.1 X10^3/uL (2.0-7.7); Basophil# 0.04 X10^3/uL; Basophil% 0.6 % (0-1); Eosinophil# 0.08 X10^3/uL; Eosinophils% 1.2 % (0-5); Hematocrit 38.8 % (40-54); Hemoglobin 12.9 g/dL (13.0-16.5); Lymphocyte # 0.63 X10^3/ul (0.83-4.51); Lymphocyte % 9.6 % (19-41); Mean Corp Hgb Conc 33.2 g/dL (32-36); Mean Corpuscular Hgb 31.6 pg (27.0-32.0); Mean Corpuscular Volume 95.1 fL (80-94); Mean Platelet Vol. 9.5 fl (6.2-12.0); Monocyte# 0.65 X10^3/uL; Monocyte% 9.9 % (0-10); NRBC Flagged by Analyzer 0 % (0-5); Neutrophil # 5.12 X10^3/uL (2.7-7.7); Neutrophil % 78.4 % (47-70); Platelet Count 142 K/mm3 (150-450); RBC Distribution Width CV 13.2 % (11.6-14.6); RBC Distribution Width SD 46.3 fl (35.1-43.9); Red Blood Count 4.08 M/mm3 (4.6-6.2); White Blood Count 6.5 K/mm3 (4.4-11.0)
[2024-04-19 16:22] LABS: International Normalized Ratio 1.1; Partial Thromboplast Time 29.9 Seconds (24.1-36.2); Prothrombin Time (Protime)PT. 13.8 SECONDS (11.7-14.9)
[2024-04-19 16:29] LABS: AST(SGOT) 23 U/L (15-37); Alanine Aminotransfer ALT/SGPT 34 U/L (16-61); Albumin, Serum 3.6 g/dL (3.2-5.0); Alkaline Phosphatase 126 U/L (45-117); Bilirubin, Direct 0.26 mg/dL (0.00-0.30); Globulin 3.8 g/dL (2.2-4.2); Protein, Total 7.4 g/dL (6.4-8.2)
[2024-04-19 16:31] LABS: Anion Gap 7 (5-15); BUN 22 mg/dL (7-18); BUN/Creat Ratio 5.6 RATIO (10-20); Calcium,Total 9.5 mg/dL (8.5-10.1); Chloride 96 mmol/L (98-107); Creatinine, Serum 3.95 mg/dL (0.70-1.30); EST Glomerular Filtration Rate 16 mL/min (>60); Est Glom Filt Rate - Afr Amer 19 mL/min (>60); Estimated Creatinine Clearance 18.41 ml/min; Glucose 134 mg/dL (74-106); Potassium 3.8 mmol/L (3.5-5.1); Sodium Level 136 mmol/L (136-145)
[2024-04-19 16:40] LABS: Lactic Acid 1.6 mmol/L (0.4-1.9)
--- NOTE | 2024-04-19 18:58 | ED.RN ---
Assisted patient to bedside to use urinal with no results. Repositioned in bed and straight cath preformed with no results. Doctor updated.
== END 2024-04-19 20:01 | disposition home or self-care (01) ==
PROVIDERS: Emergency Provider Emergency Medicine; PCP Internal Medicine; Visit Provider Emergency Medicine
DX: R53.1 Weakness (principal); M06.9 Rheumatoid arthritis, unspecified; M31.30 Wegener's granulomatosis without renal involvement; I50.22 Chronic systolic (congestive) heart failure; I13.0 Hypertensive heart and chronic kidney disease with heart failure and stage 1 through stage 4 chronic kidney disease, or unspecified chronic kidney disease; N18.30 Chronic kidney disease, stage 3 unspecified; R05.9 Cough, unspecified; I49.1 Atrial premature depolarization; D64.9 Anemia, unspecified; M54.50 Low back pain, unspecified; K21.9 Gastro-esophageal reflux disease without esophagitis; N40.0 Benign prostatic hyperplasia without lower urinary tract symptoms; G62.9 Polyneuropathy, unspecified; G47.33 Obstructive sleep apnea (adult) (pediatric); Z99.2 Dependence on renal dialysis; Z79.899 Other long term (current) drug therapy; Z87.891 Personal history of nicotine dependence; Z96.641 Presence of right artificial hip joint
CPT/HCPCS: 71046; 80048; 80076; 83605; 85025; 85610; 85730; 87631; 93005; 94760; 99285; P9612; A4216

== ENCOUNTER → 2024-07-20 | Outpatient (CLI) | payer MEDICARE, OTHER, SELFPAY ==
[2024-07-20 12:55] LABS: PSA,Total- Diagnostic 5.52 ng/mL (0.00-4.00)
== END | disposition home or self-care (01) ==
LOC: LAB 11:09
PROVIDERS: PCP Internal Medicine; Referring Provider Urology; Visit Provider Urology
DX: N40.1 Benign prostatic hyperplasia with lower urinary tract symptoms (principal)
CPT/HCPCS: 36415; 84153

== ENCOUNTER 2024-12-08 01:14 | Emergency (ER) | payer MEDICARE, OTHER, SELFPAY ==
[2024-12-08 01:16] VITALS: BP 121/66; PULSE 86; RESP 17; TEMP 36.5; O2SAT 99; BMI 33.3
--- NOTE | 2024-12-08 01:44 | EKG12_ITS ---
Test Reason : SYNCOPE Blood Pressure : */* mmHG Vent. Rate : 88 BPM Atrial Rate : 88 BPM P-R Int : 148 ms QRS Dur : 74 ms QT Int : 366 ms P-R-T Axes : 1 8 36 degrees QTcB Int : 442 ms Sinus rhythm with occasional Premature ventricular complexes Otherwise normal ECG Confirmed by Fawad Whittaker ([id number]), science editor SHEFALI BRODY ([id number]) on 12/08/2024 1:49:40 PM Referred By: CONCEPCION Confirmed By: Fawad Whittaker
--- NOTE | 2024-12-08 01:44 | CT_ITS ---
PROCEDURE: BRAIN/HEAD WITHOUT CONTRAST 12/08/2024 REASON FOR EXAM: SYNCOPE TECHNIQUE: BRAIN/HEAD WITHOUT CONTRAST Coronal and Sagittal reconstruction series were provided. One or more dose reduction techniques were used (e.g., Automated exposure control, adjustment of the mA and/or kV according to patient size, use of iterative reconstruction technique. RADIATION DOSE SUMMARY: CTDlvol: 45 mGy DLP: 847 mGycm COMPARISON: 02/27/2023 FINDINGS: Mild atrophy. Arterial calcifications. 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 Mild white matter change. No acute abnormal brain densities. No intracranial hemorrhage. No hydrocephalus or midline shift. Bilateral lens extraction. Clear sinuses. CT/Brain/Head without Contrast IMPRESSION: No acute intracranial findings [facility]
[2024-12-08 01:55] LABS: Hematocrit 33.2 % (40-54); Hemoglobin 10.8 g/dL (13.0-16.5); Immature Granulocytes Count 0.040 X10^3/uL (0.0-0.0); Mean Corp Hgb Conc 32.5 g/dL (32-36); Mean Corpuscular Volume 93.3 fL (80-94); Mean Platelet Vol. 9.7 fl (6.2-12.0); NRBC Flagged by Analyzer 0 % (0-5); POSITIVE DIFFERENTIAL YES; Platelet Count 167 K/mm3 (150-450); RBC Distribution Width CV 13.5 % (11.6-14.6); RBC Distribution Width SD 46.2 fl (35.1-43.9); Red Blood Count 3.56 M/mm3 (4.6-6.2); White Blood Count 6.5 K/mm3 (4.4-11.0)
--- NOTE | 2024-12-08 01:55 | RAD_ITS ---
PROCEDURE: CHEST 1 VIEW (PORTABLE) 12/08/2024 REASON FOR EXAM: WEAKNESS TECHNIQUE: Frontal view of the chest. COMPARISON: 04/19/2024 FINDINGS: Normal heart size. Slightly under aerated lung bases. Faint left mid and lower lung zone airspace opacity. Otherwise, no consolidation effusion or pneumothorax. RAD/Chest 1 View (Portable) IMPRESSION: There is faint left mid and lower lung zone airspace opacity, atelectasis/conso lidation. Recommend follow up imaging. Reading Location: [facility]-
[2024-12-08 02:12] LABS: Anion Gap 11 (5-15); BUN 20 mg/dL (4-19); BUN/Creat Ratio 5.1 RATIO (10-20); Calcium,Total 9.2 mg/dL (7.6-11.0); Carbon Dioxide 25.8 mmol/L (21.0-32.0); Chloride 97 mmol/L (98-108); Estimated Creatinine Clearance 17.61 ml/min (50-250); Glucose 139 mg/dL (70-99); Magnesium 2.0 mg/dL (1.5-2.2); Potassium 4.2 mmol/L (3.3-5.1)
[2024-12-08] MEDS: 0.9% Normal Saline (500mL Bag) 500 ML 999 ML IV ×2 (02:36→03:45)
--- NOTE | 2024-12-08 02:37 | ED.RN ---
This RN attempted to complete the patient's medication reconciliation, however neither the patient nor the family members at bedside know the patient's medications. notified
[2024-12-08 02:38] LABS: Mucous, Urine 0 SEEN /hpf (<or=2+); Squamous Epithelial Cells - UA 0 SEEN /hpf (0-5)
[2024-12-08 02:41] LABS: Color, Urine Yellow (Yellow); Glucose, Dipstick 50 mg/dl (Normal); Ketone-Dipstick Negative (Negative); Leukocyte Esterase-Dipstick 100 /ul (Negative); Nitrite-Dipstick Negative (Negative); Occult Blood-Urine 10 /ul (Negative); Protein-Dipstick 30 mg/dl (Negative); Specific Gravity, Urine 1.010 (1.002-1.030); Urine Bilirubin Dipstick Negative (Negative)
--- OUTSIDE RECORDS SUMMARY | 2024-12-08 02:53 | XMS RPT_ITS | CCD ---
Author Organization [facility] Care Team Providers Care Artist Manager Name Role Phone Danielle Graf Unavailable Unavailable Rahel Mendez Unavailable Unavailable PROVIDER, UNKNOWN Unavailable Unavailable Abby Arango Unavailable Kaelyn Zamorano Unavailable Unavailable Charlotte Kingsley Unavailable Unavailable Unavailable Unavailable Abby Arango Attending Unavailable Abby Arango Consulting Unavailable Rahel Mendez Primary Care Provider Rahel Mendez Primary Care Provider Rahel Mendez Primary Care Provider Rahel Mendez MD Primary Care Provide r Rahel Mendez MD Primary Care Provide r RAHEL MATA Primary Care Provider [phone] Dr. Maegan Donohue Emergency Provider Dr. José Miguel Mitchell Admit Provider Dr. José Miguel Mitchell Attending Provider Dr. José Miguel Mitchell Other Provider Dr. Cornel Martinez Attending Provider Dr. Cornel Martinez Other Provider Dr. Matilde Noguera Primary Care Provider Dr. Matilde Noguera Attending Provider Dr. Matilde Noguera Referring Provider Dr. Julio Davidson Attending Provider Dr. Julio Davidson Other Provider Dr. Matilde Noguera Primary Care Provider Dr. Matilde Noguera Attending Provider [phone] Dr. Matilde Noguera Referring Provider [phone] Dr. Julio Davidson Attending Provider Dr. Julio Davidson Other Provider Andrea SUMMERS, Rahel [facility] Provide r Dr. Matilde Noguera Primary Care Provider Dr. Matilde Noguera Attending Provider [phone]) Dr. Matilde Noguera Referring Provider 1([facility])347 Unavailable Primary Care Provider Unavailrebecca Mendez MD, Rahel [facility] Provide r Dr. Matilde Noguera Primary Care Provider Dr. Matilde Noguera Attending Provider [phone] Dr. Matilde Noguera Referring Provider 1([facility])[phone] Tha Leblanc Emergency Provider 1([facility])[phone] Chey Bates Admit Provider Dr. Chey Bates Attending Provider 1([facility])[phone] Chey Bates Other Provider Dr. Jazmyne Smith Other Provider [phone] Tha Leblanc Emergency Provider [phone] Chey Bates Admit Provider Dr. Chey Bates Attending Provider 1([facility])[phone] Chey Bates Other Provider Dr. Jazmyne Smith Other Provider JAMES YADAV Attending Unavaila BRIGITTE Watters Consulting UnavailCHEY Krueger Referring Unavailable CHIDI FRAZIER Admitting Unavailable Dr. Matilde Noguera Primary Care Provider Dr. Matilde Noguera Attending Provider [phone]) Dr. Matilde Noguera Referring Provider [phone]) Dr. Tha Leblanc Emergency Provider [phone] Chey Bates Admit Provider Dr. Chey Bates Attending Provider Dr. Chey Bates Other Provider Dr. Jazmyne Smith Other Provider Dr. Matilde Noguera Primary Care Provider Dr. Matilde Noguera Attending Provider 1(330) Dr. Matilde Noguera Referring Provider 1(330) INOCENTE White Attending Provider Unavailable Unavailable Primary Care Provider Unavailabl e Dr. Matilde Noguera Primary Care Provider Dr. Matilde Noguera Attending Provider 1(330) Dr. Matilde Noguera Referring Provider 1(330) JULIUS Grove Attending Provider 1(330) Dr. Matilde Noguera MD Primary Care Provider [phone] Dr. Jesus Christian DO Attending Provider Dr. Jesus Christian DO Emergency Provider Dr. Matilde Noguera MD Attending Provider Alice SUMMERS, Dr. Arnold Referring Provider Brianne SUMMERS, Dr. Kael Clemens Attending Provider Brianne SUMMERS, Dr. Kael Clemens Referring Provider [phone] Alice SUMMERS, Dr. Arnold Primary Care Provider [phone]) Alice SUMMERS, Dr. Arnold Attending Provider Alice SUMMERS, Dr. Arnold Referring Provider José Miguel Grove Attending Provider Matilde Noguera MD Primary Care Provider JOSÉ MIGUEL HEWITT DO Attending Unavailable JOSÉ MIGUEL HEWITT DO Primary Care Unavailable JOSÉ MIGUEL HEWITT DO Admitting Unavailable BUCKTOWARSINJoanne, INO SUMMERS Admitting Unava ilable BUCKTOWARSING, INO SUMMERS Attending Unava ilable BUCKTOWARSING, INO SUMMERS Primary Care Unava ilable JAQUI, TAYLOR Referring Unavailable ALICE, MATILDE Primary Care Unavailable JAQUI, TAYLOR Referring Unavailable ALICE, MATILDE Primary Care Unavailable JOSÉ MIGUEL HEWITT Referring Unavailable ALICE, MATILDE Primary Care Unavailable FANG SMALLWOOD Consulting Unavailable FLOR JENSEN Admitting Unavailable AZIZA CHRISTIANSON Attending Unavailable José Miguel Ruelas Attending Unavailable [place], Matilde Primary Care Unavailable Alice, Matilde Referring Unavailable Alice, Matilde Primary Care Unavailable Denise Livingston Attending Unavailable Alice, Matilde Referring Unavailable José Miguel Ruelas Attending Unavailable [place], Matilde Referring Unavailable Alice, Matilde Primary Care Unavailable Alice, Matilde Attending Unavailable Alice, Matilde Referring Unavailable Alice, Matilde Primary Care Unavailable [place], Matilde Primary Care Unavailable Jesus Christian Attending Unavailable BrianneKael Attending Unavailable BrianneKael Referring Unavailable [place], Matilde Primary Care Unavailable [place], Matilde Primary Care Unavailable Alice, Matilde Attending Unavailable José Miguel Ruelas Attending Unavailable José Miguel Ruelas Referring Unavailable Alice, Matilde Primary Care Unavailable [place], Matilde Primary Care Unavailable Alice, Matilde Attending Unavailable [place], Matilde Referring Unavailable [place], Matilde Primary Care Unavailable [place], Matilde Attending Unavailable [place], Matilde Referring Unavailable Alice, Matilde Attending Unavailable [place], Matilde Referring Unavailable Alice, Matilde Primary Care Unavailable Alice, Matilde Primary Care Unavailable Alice, Matilde Attending Unavailable [place], Matilde Referring Unavailable Allergies Allergy Classification Reported Allergen(s) Allergy Type Date of Onset Reaction(s) Facility (20 sources) Aluminum aspirin; Translations: [ASPIRIN] Drug Allergy 9 Other [place], [place] (16 sources) Aspirin Drug Allergy 2 Other: See Comments [place] (16 sources) Other Allergy to substance 2 [facility] (3 sources) Seasonal allergy; Translations: [SEASONAL ALLERGIES] Propensity to adverse reactions (disorder) 2 Other: See Comments [facility] Repository (3 sources) Finasteride Drug Allergy 5 mastodynia [place] (1 source) Aspirin Drug Allergy [facility] Repository (1 source) Aspirin Drug Allergy 5 [place] [facility] (1 source) Finasteride Drug Allergy 5 [place] Repository Medications Current Medications Medication Drug Class(es) Dates Sig (Normalized) Sig (Original) acetaminophen 325 mg / oxyCODONE hydrochloride 5 mg oral tablet (20 sources) Opioid Agonist Start: 11-30-2024 End: 12-05-2024 take 1 tablet by mouth every six hours as needed for pain oxyCODONE-acetami nophen (Percocet) 5-325 MG tablet Indications: Neuropathy Take 1 tablet by mouth every 6 hours as needed for severe pain (7-10) for up to 5 days. 15 tablet 11/30/2024 12/05/2024 Active Start: 08-30-2024 End: 09-28-2024 Oxycodone-Acetaminophen (Per cocet) 5-325 mg tablet Active 1 {tbl} PO Q8H as needed for pain September 28, 2024 October 27, 2024 12:00am Start: 07-26-2024 End: 08-25-2024 Oxycodone-Acetaminophen (Per cocet) 5-325 mg tablet Discontinued 1 {tbl} PO Q8H as needed for pain 90 July 26, 2024 August 24, 2024 12:00am August 25, 2024 12:09am Start: 06-23-2024 End: 07-23-2024 Oxycodone-Acetaminophen (Per cocet) 5-325 mg tablet Discontinued 1 {tbl} PO Q8H as needed for pain 90 June 23, 2024 July 22, 2024 1:00am July 23, 2024 1:15am Start: 05-19-2024 End: 06-18-2024 Oxycodone-Acetaminophen (Per cocet) 5-325 mg tablet Discontinued 1 {tbl} PO Q8H as needed for pain May 19, 2024 June 17, 2024 1:00am June 18, 2024 1:19am Start: 04-12-2024 End: 05-12-2024 Oxycodone-Acetaminophen (Per cocet) 5-325 mg tablet Discontinued 1 {tbl} PO Q8H as needed for pain April 12, 2024 May 11, 2024 1:00am May 12, 2024 1:09am Start: 03-09-2024 End: 04-08-2024 Oxycodone-Acetaminophen (Per cocet) 5-325 mg tablet Discontinued 1 {tbl} PO Q8H as needed for pain March 09, 2024 April 07, 2024 1:00am April 08, 2024 1:09am Start: 02-06-2024 End: 03-07-2024 Oxycodone-Acetaminophen (Per cocet) 5-325 mg tablet Discontinued 1 {tbl} PO Q8H as needed for pain February 06, 2024 March 06, 2024 12:00am March 07, 2024 12:08am Start: 01-06-2024 End: 02-05-2024 Oxycodone-Acetaminophen (Per cocet) 5-325 mg tablet Discontinued 1 {tbl} PO Q8H as needed for pain January 06, 2024 February 04, 2024 12:00am February 05, 2024 12:05am Start: 11-21-2023 End: 12-29-2023 Oxycodone-Acetaminophen (Per cocet) 5-325 mg tablet Discontinued 1 {tbl} PO Q8H as needed for pain 17 03December 19, 2023 December 28, 2023 12:00am December 29, 2023 12:04am Start: 10-19-2023 End: 11-18-2023 Oxycodone-Acetaminophen (Per cocet) 5-325 mg tablet Discontinued 1 {tbl} PO Q8H as needed for pain October 19, 2023 November 17, 2023 12:00am November 18, 2023 12:04am Start: 09-09-2023 End: 10-09-2023 Oxycodone-Acetaminophen (Per cocet) 5-325 mg tablet Discontinued 1 {tbl} PO Q8H as needed for pain September 09, 2023 October 08, 2023 12:00am October 09, 2023 12:04am Start: 08-05-2023 End: 09-04-2023 Oxycodone-Acetaminophen (Per cocet) 5-325 mg tablet Discontinued 1 {tbl} PO Q8H as needed for pain August 05, 2023 September 03, 2023 12:00am September 04, 2023 12:06am Start: 07-02-2023 End: 08-01-2023 Oxycodone-Acetaminophen (Per cocet) 5-325 mg tablet Discontinued 1 {tbl} PO Q8H as needed for pain July 02, 2023 July 31, 2023 12:00am August 01, 2023 12:06am Start: 05-27-2023 End: 06-26-2023 Oxycodone-Acetaminophen (Per cocet) 5-325 mg tablet Discontinued 1 {tbl} PO Q8H as needed for pain May 27, 2023 June 25, 2023 1:00am June 26, 2023 1:03am Start: 04-24-2023 End: 05-24-2023 Oxycodone-Acetaminophen (Per cocet) 5-325 mg tablet Discontinued 1 {tbl} PO Q8H as needed for pain April 24, 2023 May 23, 2023 1:00am May 24, 2023 1:25am Start: 03-24-2023 End: 04-02-2023 Oxycodone-Acetaminophen (Per cocet) 5-325 mg tablet Discontinued 1 {tbl} PO Q8H as needed for pain March 24, 2023 April 22, 2023 1:00am April 02, 2023 9:30am Start: 02-17-2023 End: 03-19-2023 Oxycodone-Acetaminophen (Per cocet) 5-325 mg tablet Discontinued 1 {tbl} PO Q8H as needed for pain 90 February 17, 2023 March 18, 2023 12:00am March 19, 2023 12:05am Start: 01-14-2023 End: 02-13-2023 Oxycodone-Acetaminophen (Per cocet) 5-325 mg tablet Discontinued 1 {tbl} PO Q8H as needed for pain January 14, 2023 February 12, 2023 12:00am February 13, 2023 12:04am Start: 12-31-2022 End: 01-05-2023 take 1 tablet by mouth every six hours as needed for pain oxyCODONE-acetaminophen (Percocet) 5-325 MG tablet Indications: Peritoneal dialysis catheter in place (CMS/HCC) (HCC) Take 1 tablet by mouth every 6 hours as needed for severe pain (7-10) for up to 5 days. 15 tablet 0 12/31/2022 01/05/2023 Active Start: 12-05-2022 End: 01-04-2023 take 1 tablet by mouth every eight hours Oxycodone-Acetaminophen Discontinued 1 TABLET PO Q8H 90 December 05, 2022 January 04, 2023 12:10am Start: 11-04-2022 End: 12-04-2022 take 1 tablet by mouth every eight hours Oxycodone-Acetaminophen Discontinued 1 TABLET PO Q8H 90 November 04, 2022 December 04, 2022 12:03am Start: 10-01-2022 End: 10-31-2022 take 1 tablet by mouth every eight hours Oxycodone-Acetaminophen Discontinued 1 TABLET PO Q8H 90 October 01, 2022 October 31, 2022 12:04am Start: 08-31-2022 End: 09-30-2022 take 1 tablet by mouth every eight hours Oxycodone-Acetaminophen Discontinued 1 TABLET PO Q8H 90 August 31, 2022 September 30, 2022 12:04am Start: 07-02-2022 End: 08-29-2022 take 1 tablet by mouth every eight hours Oxycodone-Acetaminophen Discontinued 1 TABLET PO Q8H 90 August 01, 2022 August 29, 2022 10:46am Start: 02-13-2022 End: 07-02-2022 take 6 tablets by mouth once as needed for pain Oxycodone-Acetaminophen 5-325 mg tablet Discontinued 1 {tbl} PO .Q6 PRN as needed for Pain February 13, 2022 10:38am July 02, 2022 2:05pm Start: 02-13-2022 End: 07-02-2022 take 6 tablets by mouth once as needed Oxycodone-Acetaminophen Discontinued 1 TABLET PO .Q6 PRN February 13, 2022 10:38am July 02, 2022 2:05pm Start: 01-11-2021 End: 02-10-2021 take 1 tablet by mouth every twelve hours as needed for pain oxyCODONE-acetaminophen (PERCOCET) 5-325 MG per tablet Indications: Other chronic pain Take 1 tablet by mouth every 12 hours as needed for Pain for up to 30 days. Take lowest dose possible to manage pain 60 tablet 0 01/11/2021 02/10/2021 Active Start: 11-04-2020 End: 11-25-2024 Oxycodone-Acetaminophen 5-32 5 mg tablet Discontinued 1 {tbl} PO Q8H as needed for Pain 90 30 December 05, 2022 January 03, 2023 12:00am January 04, 2023 12:10am Start: 11-04-2020 End: 02-13-2022 take 1 tablet by mouth every eight hours as needed Oxycodone-Acetaminophen Discontinued 1 TABLET PO EVERY 8 HOURS NEEDED November 04, 2020 12:00am February 13, 2022 10:41am Start: 04-06-2020 oxyCODONE-acet aminophen (PERCOCET) 5-325 MG per tablet 1 tablet Start: 03-09-2020 End: 04-07-2020 take 1 tablet by mouth every twelve hours as needed for pain, then take 1 tablet by mouth as needed for pain oxyCODONE-acetaminophen (PERCOCET) 5-325 MG per tablet Indications: Other chronic pain Take 1 tablet by mouth every 12 hours as needed for Pain for up to 14 days. Intended supply: 14 days. Take lowest dose possible to manage pain 28 tablet 0 03/24/2020 04/07/2020 Active Start: 12-02-2019 End: 12-16-2019 take 1 tablet by mouth every twelve hours as needed for pain 1 tablet, Oral, EVERY 12 HOURS PRN, Pain Moderate (4-6), Starting Fri12/14/19 at 0125 Maximum dose of acetaminophen is 4000 mg from all sources in 24 hours. Start: 11-03-2019 End: 11-10-2019 take 1 tablet by mouth every six hours as needed for pain, then take 1 tablet by mouth as needed for pain oxyCODONE-acetaminophen (PERCOCET) 5-325 MG per tablet Indications: Compression fracture of L1 vertebra, sequela Take 1 tablet by mouth every 6 hours as needed for Pain for up to 7 days. Intended supply: 3 days. Take lowest dose possible to manage pain 28 tablet 0 11/03/2019 11/10/2019 Active Start: 10-21-2019 take 1 tablet by wolfgang every six hours as needed for pain 1 tablet, Oral, EVERY 6 HOURS PRN, Pain Moderate (4-6), Pain Severe (7-10), Starting Samia 10/21/19 at 0022 Maximum dose of acetaminophen is 4000 mg from all sources in 24 hours. Comment on above: TAKE 1 TABLET BY WOLFGANG EVERY 8 HOURS NEEDED FOR PAIN FOR 30 DAYS albuterol 0.833 mg/ml / ipratropium bromide 0.167 mg/ml inhalant solution (1 source) Anticholinergic, beta2-Adrenergic Agonist Start: 0 1 ampule, Inhalation, EVERY 4 HOURS PRN, Shortness of Breath, Starting Fri10/20/19 at 2227 albuterol sulfate HFA 108 (90 Base) MCG/ACT inhaler 2 puff (1 source) Start: 0 take 2 puff(s) by inhalation every six hours as needed for wheezing 2 puff, Inhalation, EVERY 6 HOURS PRN, Wheezing, Starting Samia 04/06/20 at 1615 aspirin 81 mg chewable tablet (20 sources) Platelet Aggregation Inhibitor, Nonsteroidal Anti-inflammatory Drug Start: 0 aspirin chewable tablet 81 mg Start: 12-03-2013 take 1 tablet by wolfgang th in the morning aspirin 81 MG EC tablet Take 81 mg by mouth in the morning. 0 12/03/2013 Active Start: 03-18-2013 End: 12-01-2013 take 1 tablet by mouth every four hours as needed for pain Aspirin 325 MG tablet Discontinued 325 mg PO EVERY 4 HOURS NEEDED as needed for Pain March 18, 2013 12:00am December 01, 2013 9:36am take 1 tablet by wolfgang th every six hours as needed aspirin 325 mg tablet Take 325 mg by mouth every 6 hours as needed. For pain 0 Active Comment on above: Take 325 mg by mouth every 6 hours as needed. For pain Take 1 tablet by wolfgang th once daily. atorvastatin 40 mg oral tablet (20 sources) HMG-CoA Reductase Inhibitor Start: 5 End: 5 take 1 tablet by mouth once daily atorvastatin (Lipitor) 40 MG tablet Take 1 tablet (40 mg) by mouth Nightly. 30 tablet 1 11/30/2024 01/29/2025 Active Start: 10-21-2019 End: 12-13-2019 take 40 mg by mouth once daily 40 mg, Oral, DAILY, Fir st dose on Samia 10/21/19 at 0900 Start: 06-25-2018 End: 11-10-2018 take 1 tablet by mouth at bedtime Atorvastatin 40 mg tablet Discontinued 40 mg PO AT BEDTIME November 04, 2018 12:00am November 10, 2018 8:48am benzocaine 200 mg/ml topical spray (4 sources) Standardized Chemical Allergen Start: 11-30-2024 End: 12-30-2024 benzocaine (Hurricaine) 20 % aerosol Use 2 sprays in the mouth or throat as needed (sore throat). 57 g 11/30/2024 12/30/2024 Active Start: 11-28-2024 End: 11-30-2024 2 spray, Mouth/Throat, PRN, sore throat, Starting on 11/28/24 at 1049 benzonatate 100 mg oral capsule (1 source) Non-narcotic Antitussive Start: 10-20-2019 take 100 mg by mouth three times daily as needed for cough 100 mg, Oral, 3 TIMES DAILY PRN, Cough, Starting Fri10/20/19 at 2232 betamethasone 0.0005 mg/mg topical ointment (1 source) Corticosteroid Start: 04-06-2020 apply 1 dose topically twice daily Topical, 2 TIMES DAILY, First dose on Samia 04/06/20 at 2100 Apply to tip of penis. Substituted for Betamethasone valerate (VALISONE). budesonide 0.25 mg/ml inhalant solution (12 sources) Corticosteroid Start: 04-06-2020 take 500 ug by mouth twice daily 500 mcg, Nebulization, 2 TIMES DAILY, First dose on Samia 04/06/20 at 2100 Rinse mouth out with water (without swallowing) after every dose. Start: 12-14-2019 take 500 ug by mouth twice daily 500 mcg, Nebulization, 2 TIMES DAILY, First dose on Fri12/14/19 at 0145 Rinse mouth out with water (without swallowing) after every dose. Start: 07-22-2019 budesonide (PU LMICORT) 0.5 MG/2ML nebulizer suspension Take 2 mLs by nebulization 2 times daily Add 1 ampule into saline nasal rinse per use 60 ampule 3 07/22/2019 Active capsaicin 0.25 mg/ml topical cream (4 sources) Start: 11-29-2024 End: 11-30-2025 capsaicin (Zostrix) 0.025 % cream Apply topically 2 times daily. 56.6 g 11/30/2024 11/30/2025 Active carboxymethylcellulose sodium 5 mg/ml ophthalmic solution (4 sources) Start: 11-26-2024 End: 11-30-2024 take 1 drop(s) into the eye(s) four times daily as needed carboxymethylcellulose PF (Refresh Plus) 0.5 % ophthalmic solution Administer 1 drop into both eyes 4 times daily as needed for dry eyes. 30 each 11/30/2024 Active cefdinir 300 mg oral capsule (1 source) Cephalosporin Antibacterial Start: 04-25-2020 End: 05-02-2020 take 1 capsule by mouth once daily cefdinir (OMNICEF) 300 MG capsule Take 1 capsule by mouth daily for 7 days 7 capsule 0 04/25/2020 05/02/2020 Active ciprofloxacin 500 mg oral tablet (3 sources) Quinolone Antimicrobial Start: 12-15-2019 End: 12-17-2019 take 1 tablet by mouth once daily ciprofloxacin (CIPRO) 500 MG tablet Take 1 tablet by mouth daily for 1 day 1 tablet 0 12/16/2019 12/17/2019 Active Start: 12-14-2019 End: 12-14-2019 ciprofloxacin (CIPRO) IVPB 4 00 mg clopidogrel 75 mg oral tablet (19 sources) P2Y12 Platelet Inhibitor Start: 11-25-2024 End: 01-30-2025 take 1 tablet by mouth once daily clopidogrel (Plavix) 75 MG tablet Take 1 tablet (75 mg) by mouth daily. 30 tablet 1 12/01/2024 01/30/2025 Active Start: 11-10-2018 End: 11-10-2018 take 1 tablet by mouth once daily Clopidogrel (Plavix) 75 mg tablet Discontinued 75 mg PO .COMPLEX November 10, 2018 12:00am November 10, 2018 9:39am 75 mg PO Take 4 tablets by mouth today 11/10/18 then one tablet daily for cath on 11/12/18; clotrimazole 10 mg oral lozenge (1 source) Azole Antifungal Start: 11-04-2020 Clotrimazole Active 10 MG MUCOUS MEM THREE TIMES A DAY November 04, 2020 12:00am dicyclomine hydrochloride 10 mg oral capsule (1 source) Anticholinergic Start: 10-20-2019 take 10 mg by mouth three times daily as needed for pain 10 mg, Oral, 3 TIMES DAILY PRN, abdominal cramping/pain, Starting 10/20/19 at 2232 250 ml DOBUTamine 2 mg/ml injection (1 source) beta-Adrenergic Agonist Start: 12-14-2019 DOBUTamine (DOBUTREX) 500 mg in dextrose 5 % 250 mL infusion docusate sodium 50 mg / sennosides, shelter 8.6 mg oral tablet (4 sources) Start: 11-26-2024 End: 01-30-2025 take 2 tablets by mouth once daily senna-docusate sodium (Senokot-S) 8.6-50 MG tablet Take 2 tablets by mouth daily. 60 tablet 1 12/01/2024 01/30/2025 Active doxycycline hyclate 100 mg oral tablet (1 source) Tetracycline-class Drug take 1 tablet by mouth twice daily doxycycline hyclate (VIBRA-TABS) 100 MG tablet Take 100 mg by mouth 2 times daily 0 Active 0.3 ml enoxaparin sodium 100 mg/ml prefilled syringe (2 sources) Low Molecular Weight Heparin Start: 04-06-2020 inject 30 mg by subcutaneous injection once daily 30 mg, Subcutaneous, DAILY, First dose on Samia 04/06/20 at 1645 Start: 12-14-2019 enoxaparin (LO VENOX) injection 30 mg 1 ml EPINEPHrine 1 mg/ml injection (1 source) alpha-Adrenergic Agonist, beta-Adrenergic Agonist, Catecholamine Start: 10-25-2019 EPINEPHrine PF 1 MG/ML injection 0.3 mg fexofenadine hydrochloride 180 mg oral tablet (1 source) Histamine-1 Receptor Antagonist take 1 tablet by mouth once daily fexofenadine (SM FEXOFENADINE HCL) 180 MG tablet Take 180 mg by mouth daily 0 Active finasteride 5 mg oral tablet (5 sources) 5-alpha Reductase Inhibitor take 1 tablet by mouth once daily finasteride (Proscar) 5 MG tablet Take 5 mg by mouth daily. Do not crush, chew, or split. Active handicap placard (20 sources) Start: 03-12-2023 handicap placard Active 0 .ROUTE .MEDSUPPLY March 12, 2023 9:33am Length of time: 5 years Diagnosis: Impaired physical mobility z74.09 Start: 03-12-[address] Active 0 .ROUTE .MEDSUPPLY March 12, 2023 10:33am Length of time: 5 years Diagnosis: Impaired physical mobility z74.09 Start: 03-12-2023 End: 03-12-2023 handicap placard Discontinue d 0 .ROUTE .MEDSUPPLY March 12, 2023 9:31am March 12, 2023 9:33am Length of time: 5 years Diagnosis: Impaired physical mobility z74.09 Start: 03-12-2023 End: 03-12-2023 handicap placard Discontinue d 0 .ROUTE .MEDSUPPLY March 12, 2023 10:31am March 12, 2023 10:33am Length of time: 5 years Diagnosis: Impaired physical mobility z74.09 Start: 03-12-2023 End: 03-12-2023 handicap placard Discontinue d 0 .ROUTE .MEDSUPPLY March 11, 2023 11:00pm March 12, 2023 9:31am Length of time: 5 years Diagnosis: Impaired physical mobility Start: 03-12-2023 End: 03-12-2023 handicap placard Discontinue d 0 .ROUTE .MEDSUPPLY March 12, 2023 12:00am March 12, 2023 10:31am Length of time: 5 years Diagnosis: Impaired physical mobility Start: 08-29-[address] Active 0 .ROUTE .MEDSUPPLY 1 August 29, 2022 9:30am Length of time: 5 years Diagnosis: Impaired physical mobility z74.09 Start: 08-29-[address] Active 0 .ROUTE .MEDSUPPLY 1 August 29, 2022 10:30am Length of time: 5 years Diagnosis: Impaired physical mobility z74.09 Start: 08-29-2022 End: 08-29-2022 handicap placard Discontinue d 0 .ROUTE .MEDSUPPLY 1 August 29, 2022 9:29am August 29, 2022 9:31am Length of time: 5 years Diagnosis: Impaired physical mobility z74.09 Start: 08-29-2022 End: 08-29-2022 handicap placard Discontinue d 0 .ROUTE .MEDSUPPLY 1 August 29, 2022 10:29am August 29, 2022 10:31am Length of time: 5 years Diagnosis: Impaired physical mobility z74.09 Start: 08-29-2022 End: 08-29-2022 handicap placard Discontinue d 0 .ROUTE .MEDSUPPLY 1 August 28, 2022 11:00pm August 29, 2022 9:30am Length of time: 5 years Diagnosis: Impaired physical mobility z74.09 Start: 08-29-2022 End: 08-29-2022 handicap placard Discontinue d 0 .ROUTE .MEDSUPPLY 1 August 29, 2022 12:00am August 29, 2022 10:30am Length of time: 5 years Diagnosis: Impaired physical mobility z74.09 Handicap Placard MISC (2 sources) Start: 11-17-[address] MISC by Does not apply route Dx: Debility. Duration: 5 years 2 each 0 11/17/2017 Active hydrALAZINE hydrochloride 25 mg oral tablet (2 sources) Arteriolar Vasodilator Start: 12-11-2020 take 1 tablet by mouth twice daily hydrALAZINE (APRESOLINE) 25 MG tablet Take 1 tablet by mouth 2 times daily 180 tablet 3 12/11/2020 Active Start: 10-21-2019 End: 10-21-2019 hydrALAZINE (APRESOLINE) inj ection insulin glargine 100 unt/ml injectable solution (11 sources) Insulin Analog Start: 12-14-2019 inject 5 [IU] by subcutaneous injection once daily in the morning 5 Units, Subcutaneous, EVERY MORNING, First dose on Fri12/14/19 at 0900 Start: 10-26-2019 insulin glargi ne (LANTUS) 100 UNIT/ML injection vial Inject 5 Units into the skin every morning 1 vial 3 10/26/2019 Active Start: 10-26-2019 insulin glargi ne (LANTUS) injection vial 5 Units insulin lispro 100 unt/ml injectable solution (4 sources) Insulin Analog Start: 12-15-2019 insulin lispro (HUMALOG) injection vial 0-12 Units Start: 10-22-2019 insulin lispro (HUMALOG) injection vial 0-3 Units magna life (2 sources) Start: 10-15-2024 magna life Act gavi TOPICAL October 15, 2024 12:00am magna life cream topically to bilateral feet every evening melatonin 5 mg oral tablet (9 sources) Start: 11-28-2024 End: 11-30-2024 take 1 tablet by mouth once daily melatonin 5 MG tablet Take 1 tablet (5 mg) by mouth Nightly. 1 tablet 11/30/2024 Active Start: 09-07-2024 End: 10-14-2024 take 1 capsule by mouth at bedtime as needed for sleep Melatonin 3 mg capsule Active 3 mg PO BEDTIME as needed for sleep October 14, 2024 2:43pm Start: 10-20-2019 take 3 mg by mouth o nce daily as needed for sleep 3 mg, Oral, NIGHTLY PRN, Sleep, Starting Fri10/20/19 at 2232 Mis. Devices MISC (10 sources) Start: 07-09-2019 Misc. 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 Use prn bathing. 1 Device 0 07/09/2019 Active morphine sulfate (PF) injection 2 mg (1 source) Start: 04-06-2020 morphine sulfa te (PF) injection 2 mg mupirocin 0.02 mg/mg topical ointment (10 sources) RNA Synthetase Inhibitor Antibacterial Start: 07-22-2019 mupirocin (BACTROBAN ) 2 % ointment Add 1/2 inch in nasal rinse per application 1 Tube 1 07/22/2019 Active naloxone hydrochloride 40 mg/ml nasal spray (4 sources) Opioid Antagonist Start: 11-30-2024 End: 11-30-2025 naloxone (Narcan) 4 MG/0.1ML nasal spray Administer 1 spray (4 mg) into affected nostril(s) as needed for opioid reversal. May repeat every 2-3 minutes if needed, alternating nostrils, until medical assistance becomes available. 2 each 11/30/2024 11/30/2025 Active Start: 11-30-2024 End: 11-30-2024 0.4 mg, IntraVENous, Every 5 min PRN, opioid reversal, respiratory depression, Starting on Fri11/30/24 at 0637, +++ For RR nitroglycerin 0.4 mg sublingual tablet (1 source) Nitrate Vasodilator Start: 12-13-2019 nitroGLYCERIN (NITROSTAT) SL tablet 0.4 mg omeprazole 40 mg delayed release oral capsule (20 sources) Proton Pump Inhibitor Start: 06-25-2018 End: 07-26-2024 take 1 capsule by mouth once daily omeprazole (PriLOSEC) [address] capsule Take 1 capsule (40 mg) by mouth daily. 90 capsule 3 10/15/2022 Active Start: 12-03-2013 take 1 capsule by mo ut once daily before breakfast omeprazole (PRILOSEC) 20 mg capsule Take 1 capsule by mouth daily before breakfast. 1/2 hr before meal. 0 12/03/2013 Active Start: 11-29-2013 End: 11-04-2018 take 2 capsules by mouth once daily Omeprazole 20 MG capsule Discontinued 40 mg PO DAILY November 29, 2013 12:00am November 04, 2018 12:30pm Start: 11-29-2013 End: 11-04-2018 take 40 mg by mouth once daily Omeprazole Discontinued 40 MG PO DAILY November 29, 2013 12:00am November 04, 2018 12:30pm Comment on above: Take 1 capsule by mo ut daily before breakfast. 1/2 hr before meal. 2 ml ondansetron 2 mg/ml injection (2 sources) Serotonin-3 Receptor Antagonist Start: 12-13-2019 ondansetron (ZOFRAN) injection 4 mg Start: 10-20-2019 take 4 mg by mouth e very eight hours as needed for nausea 4 mg, Oral, EVERY 8 HOURS PRN, Nausea, Vomiting, Starting Fri10/20/19 at 2232 pantoprazole 40 mg delayed release oral tablet (2 sources) Proton Pump Inhibitor Start: 12-14-2019 take 40 mg by mouth once daily before breakfast 40 mg, Oral, DAILY BEFORE BREAKFAST, First dose on Tu12/14/19 at 0700 Do not crush or break. Substituted for Omeprazole (PRILOSEC). Start: 10-21-2019 take 40 mg by mouth once daily before breakfast 40 mg, Oral, DAILY BEFORE BREAKFAST, First dose on Samia 10/21/19 at 0700 Do not crush or break. Substituted for Omeprazole (PRILOSEC). patiromer 8400 mg powder for oral suspension (13 sources) Potassium Binder Start: 01-18-2022 Patiromer Michael cium Sorbitex (Veltassa) 8.4 gram Powder In Packet Active 8.4 GM PO DAILY January 18, 2022 12:00am End: 08-07-2023 Patiromer Sorbitex Calcium 8 .4 g pack Take 8.4 g by mouth. 0 08/07/2023 Discontinued perflutren lipid microspheres (DEFINITY) injection 1.65 mg (1 source) Start: 12-14-2019 perflutren lip id microspheres (DEFINITY) injection 1.65 mg Promethazine (2 sources) Phenothiazine Start: 04-06-2020 promethazine ( PHENERGAN) tablet 12.5 mg Start: 10-20-2019 take 12.5 mg intrave nous route every six hours as needed for nausea 12.5 mg, Intravenous, EVERY 6 HOURS PRN, Nausea, Vomiting, Starting Fri10/20/19 at 2232 If PO nausea medication ordered, please use PO FIRST. Use IV or IM Phenergan if patient cannot tolerate PO order or use following PO medication if the patient is having breakthrough nausea For IV administration, dilute to 10ml with normal saline. Must be administered over at least 10 minutes. simethicone 80 mg chewable tablet (4 sources) Start: 11-26-2024 End: 12-10-2024 simethicone (Mylicon) 80 MG chewable tablet Chew 1 tablet (80 mg) 4 times daily as needed for flatulence for up to 10 days. 30 tablet 11/30/2024 12/10/2024 Active sodium chloride flush 0.9 % injection 3 mL (2 sources) Start: 04-25-2020 sodium chlorid e flush 0.9 % injection 3 mL Start: 12-13-2019 sodium chlorid e flush 0.9 % injection 3 mL triamcinolone acetonide 0.001 mg/mg topical ointment (17 sources) Corticosteroid Start: 09-09-2023 Triamcinolone Acetonide 0.1 % ointment Active 1 NMA TOPICAL DAILY as needed for rash/itching September 09, 2023 12:00am Start: 02-20-2022 End: 08-07-2023 triamcinolone (Kenalog) 0.1 % ointment Apply topically 2 times daily. 0 02/20/2022 08/07/2023 Discontinued Start: 04-02-2019 End: 04-09-2019 triamcinolone (KENALOG) 0.1 % ointment Apply topically 2 times daily. 15 g 1 04/02/2019 04/09/2019 Active Completed/Discontinued Medications Medication Drug Class(es) Dates Sig (Normalized) Sig (Original) acetaminophen 500 mg oral tablet (18 sources) Start: 11-30-2024 End: 11-30-2024 take 1 tablet by mouth every eight hours 500 mg, Oral, Every 8 hours, First dose on Fri11/30/24 at 0600, Maximum dose of acetaminophen is 4000 mg from all sources in 24 hours. Start: 11-25-2024 End: 11-25-2024 650 mg, IntraVENous, at 260 mL/hr, Administer over 15 Minutes, Once, On Fri11/25/24 at 1230, For 1 dose Start: 12-31-2022 End: 12-31-2022 acetaminophen (Tylenol) tabl et 1,000 mg Start: 04-06-2020 650 mg, Oral, EVERY 4 HOURS PRN, Pain Mild (1-3), Pain Mild (1-3) or Fever greater than 100.5 F (38 C), Starting Fri04/06/20 at 1615 Maximum dose of acetaminophen is 4000 mg from all sources in 24 hours. Start: 04-06-2020 End: 04-06-2020 acetaminophen (TYLENOL) tabl et 1,000 mg Start: 12-14-2019 acetaminophen (TYLENOL) tablet 1,000 mg Start: 11-15-2019 End: 11-15-2019 acetaminophen (TYLENOL) tabl et 650 mg Start: 11-08-2019 End: 11-08-2019 acetaminophen (TYLENOL) tabl et 650 mg Start: 11-01-2019 End: 11-01-2019 acetaminophen (TYLENOL) tabl et 650 mg Start: 10-25-2019 End: 10-25-2019 acetaminophen (TYLENOL) tabl et 650 mg Start: 10-20-2019 acetaminophen (TYLENOL) tablet 650 mg acetaminophen (T ylenol Extra Strength) 500 MG tablet every 6 hours. Active acetaminophen 300 mg / codeine phosphate 30 mg oral tablet (1 source) Opioid Agonist Start: 01-21-2014 End: 12-01-2022 take 1 tablet by mouth every six hours as needed acetaminophen-codeine (TYLENOL-CODEINE #3) 300-30 mg per tablet Take 1 tablet by mouth every 6 hours as needed for Pain. 30 tablet 0 01/21/2014 12/01/2022 Discontinued Comment on above: Take 1 tablet by wolfgang every 6 hours as needed for Pain. [id number] 200 actuat albuterol 0.09 mg/actuat metered dose inhaler (20 sources) beta2-Adrener gic Agonist Start: 02-13-2022 End: 02-13-2022 Albuterol Sulfate (Proair Hfa) 90 mcg/actuation HFA aerosol inhaler Discontinued 2 NMA INHALATION EVERY 6 HOURS as needed February 13, 2022 12:00am February 13, 2022 10:41am Start: 02-13-2022 End: 02-13-2022 take 1 puff(s) by inhalation every six hours Albuterol Sulfate (Proair Hfa) 90 mcg/actuation HFA aerosol inhaler Discontinued 2 PUFF INHALATION EVERY 6 HOURS February 13, 2022 12:00am February 13, 2022 10:41am Start: 06-05-2020 End: 08-07-2023 take 2 puff(s) by inhalation every six hours as needed albuterol 108 (90 Base) MCG/ACT inhaler Inhale 2 puffs every 6 hours as needed. 0 06/05/2020 08/07/2023 Discontinued Start: 06-05-2016 take 2 puff(s) by in halation every six hours as needed for wheezing albuterol sulfate HFA 108 (90 BASE) MCG/ACT inhaler Inhale 2 puffs into the lungs every 6 hours as needed for Wheezing 1 Inhaler 3 06/05/2016 Active Start: 06-05-2016 take 2 puff(s) by in halation every six hours as needed for wheezing albuterol sulfate HFA 108 (90 BASE) MCG/ACT inhaler Inhale 2 puffs into the lungs every 6 hours as needed for Wheezing 1 Inhaler 3 06/05/2016 Active Start: 12-02-2013 take 2 puff(s) by in halation every four hours as needed albuterol HFA (PROAIR HFA) 90 mcg/actuation inhaler Inhale 2 Puffs as instructed every 4 hours as needed. 0 12/02/2013 Active Albuterol Sulfat e HFA 108 (90 Base) MCG/ACT Inhalation Aerosol Solution 2 puffs for wheezing prn prn (108 (90 Base) MCG/ACT) Active Comment on above: Inhale 2 Puffs as in structed every 4 hours as needed. ALPRAZolam 0.25 mg disintegrating oral tablet (1 source) Benzodiazepine Start: 023 End: ALPRAZolam (Xanax) disintegrating tablet 0.25 mg amitriptyline hydrochloride 50 mg oral tablet (2 sources) Tricyclic Antidepressant Start: End: take 1 mg by mouth once daily at bedtime Amitriptyline HCl 50 MG Oral Tablet 1 (one) Milligram qhs for 0 days Quantity: 30 {Tablet} Refills: 2 Ordered: 12-Aug-2018 Abby Arango DO, DO, Kathleen Start : 12-Aug-2018 End : 12-Aug-2018 Discontinued Comments: insomnia Start: 07-29-2018 take 1 mg by mouth o nce daily at bedtime Amitriptyline HCl 50 MG Oral Tablet 1 (one) Milligram qhs for 0 days Quantity: 30 {Tablet} Refills: 2 Ordered: 29-Jul-2018 Abby Arango DO, DO, Kathleen Start : 29-Jul-2018 Active Comment on above: insomnia amoxicillin 500 mg / clavulanate 125 mg oral tablet (5 sources) Penicillin-class Antibacterial Start: 05-04-2024 End: 06-08-2024 Amoxicillin-Pot Clavulanate (Augmentin) 500-125 mg tablet Discontinued 1 {tbl} PO daily May 04, 2024 1:00am June 08, 2024 11:14am take after dialysis on dialysis days take 1 tablet by mouth twice otilio ly Amoxicillin-Pot Clavulanate 875-125 MG Oral Tablet 1 bid (875-125 MG) Active azaTHIOprine 50 mg oral tablet (20 sources) Purine Antimetabolite Start: 12-04-2020 take 2 tablets by mouth once daily azaTHIOprine (Imuran) 50 MG tablet TAKE 2 TABLETS BY MOUTH ONCE DAILY 0 12/04/2020 Active Start: 11-04-2020 End: 11-30-2024 take 50 mg by mouth once daily at lunch 50 mg, Oral, Daily With Lunch, First dose on Fri11/25/24 at 1200 Start: 11-04-2020 End: 08-29-2022 take 100 mg by mouth once daily Azathioprine Discontinued 100 MG PO DAILY November 04, 2020 12:00am August 29, 2022 9:57am betamethasone 0.5 mg/ml / clotrimazole 10 mg/ml topical cream (15 sources) Azole Antifungal, Corticosteroid Start: 04-07-2020 End: 08-07-2023 clotrimazole-betamethasone (Lotrisone) cream Apply topically 2 times daily as needed. 0 04/07/2020 08/07/2023 Discontinued Start: 04-07-2020 clotrimazole-b etamethasone (LOTRISONE) 1-0.05 % cream Apply topically 2 times daily. 45 g 0 04/07/2020 Active calcitriol 0.16023 mg oral capsule (20 sources) Vitamin D3 Analog Start: 03-04-2022 End: 08-29-2022 Calcitriol 0.25 mcg capsule Discontinued 0.25 ug PO .3 TIMES WEEKLY June 20, 2022 1:00am August 29, 2022 9:57am Start: 03-04-2022 End: 08-07-2023 take 2 capsules by mouth every other day calcitriol (Rocaltrol) 0.25 MCG capsule Take 2 capsules by mouth every other day. M-W-F 0 03/04/2022 08/07/2023 Discontinued calcium chloride 0.0014 meq/ml / potassium chloride 0.004 meq/ml / sodium chloride 0.103 meq/ml / sodium lactate 0.028 meq/ml injectable solution (1 source) Start: 04-06-2020 End: 04-06-2020 lactated ringers infusion cephalexin 500 mg oral capsule (13 sources) Cephalosporin Antibacterial Start: 11-09-2022 End: 01-14-2023 take 1 capsule by mouth every twelve hours Cephalexin 500 mg capsule Discontinued 500 mg PO EVERY 12 HOURS 14 November 09, 2022 12:00am January 14, 2023 11:32am Start: 04-04-2020 End: 04-25-2020 take 1 capsule by mouth twice daily cephALEXin (KEFLEX) 500 MG capsule Take 1 capsule by mouth 2 times daily 14 capsule 0 04/04/2020 04/25/2020 Discontinued (LIST CLEANUP) cholecalciferol 0.025 mg oral capsule (20 sources) Vitamin D Start: 02-13-2022 End: 02-13-2022 take 1 capsule by mouth once daily Cholecalciferol (Vitamin D3) 25 mcg (1,000 unit) capsule Discontinued 25 ug PO DAILY February 13, 2022 12:00am February 13, 2022 10:41am Start: 11-04-2020 take 1 tablet by wolfgang once daily Cholecalciferol (Vitamin D3) (Vitamin D3) 25 mcg (1,000 unit) Tablet Active 25 MCG PO DAILY November 04, 2020 12:00am cholecalciferol (Vitamin D-3) 1.25 MG (13767 UT) capsule Take by mouth. 0 Active cholecalciferol 9.52 unt/ml / glucose 357 mg/ml oral gel (2 sources) Vitamin D Start: 11-25-2024 End: 11-30-2024 15 g, Oral, As needed, low blood sugar, Starting on Samia 11/25/24 at 1710, If blood glucose less than 50 mg/dL and patient ALERT and NOT NPO, give 2 tubes glucose gel. If blood glucose less than 70 mg/dL and patient ALERT and NOT NPO, give 1 tube glucose gel. Repeat blood glucose in 15 minutes. If blood glucose is less than 70 mg/dL, repeat treatment and recheck blood glucose in 15 minutes x2 and notify provider. codeine phosphate 2 mg/ml / guaiFENesin 20 mg/ml oral solution (1 source) Opioid Agonist Start: 12-02-2013 take 5-10 mL by mouth every six hours as needed codeine-guaiFENesin 10-100 mg/5 mL syrup Take 5-10 mL by mouth four times daily as needed for Cough. May cause drowsiness. 120 mL 0 12/02/2013 Active Comment on above: Take 5-10 mL by mout h four times daily as needed for Cough. May cause drowsiness. 100 ml dexmedetomidine 0.004 mg/ml injection (2 sources) Central alpha-2 Adrenergic Agonist Start: 11-25-2024 End: 11-27-2024 0.1-1.5 mcg/kg/hr 103 kg (2.575-38.625 mL/hr, rounded to 2.58-38.63 mL/hr), IntraVENous, Continuous, Starting on Samia 11/25/24 at 1815, If Titrate Infusion? is "No": Disregard instructions below. If Titrate infusion? is "Yes": Titrate in increments of 0.2 mcg/kg/hr no more frequently than every 30 minutes to goal of therapy. If after titration rate change patient exhibits adverse hemodynamic response, next titration rate change may be adjusted by one-half of the previous rate change. If patient fails sedation interruption, resume dexmedetomidine infusion at 50% of previous rate., Titrate Infusion? Yes, Initial Infusion Dose: 0.2 mcg/kg/hr, Goal of Therapy: RASS 0 to -1, Contact Provider if: New onset HR less than 50 bpm, New onset SBP less than 90 mmHg, Patient is receiving maximum dose and is not achieving the goal of therapy, If held outside of ordered parameters contact provider for further direction diphenhydrAMINE hydrochloride 25 mg oral tablet (4 sources) Histamine-1 Receptor Antagonist Start: 11-15-2019 End: 11-15-2019 diphenhydrAMINE (BENADRYL) tablet 25 mg Start: 11-08-2019 End: 11-08-2019 diphenhydrAMINE (BENADRYL) t ablet 25 mg Start: 11-01-2019 End: 11-01-2019 diphenhydrAMINE (BENADRYL) t ablet 25 mg Start: 10-25-2019 End: 10-25-2019 diphenhydrAMINE (BENADRYL) i njection 25 mg famotidine 20 mg oral tablet (2 sources) Histamine-2 Receptor Antagonist Start: 12-31-2022 End: 12-31-2022 famotidine (Pepcid) tablet 20 mg Start: 04-06-2020 End: 04-06-2020 famotidine (PEPCID) tablet 2 0 mg 2 ml fentaNYL 0.05 mg/ml injection (2 sources) Opioid Agonist Start: 12-31-2022 End: 12-31-2022 fentaNYL (Sublimaze) injection 25 mcg Start: 10-21-2019 End: 10-21-2019 fentaNYL (SUBLIMAZE) injecti on 60 actuat fluticasone propionate 0.05 mg/actuat dry powder inhaler (20 sources) Corticosteroid Start: 02-13-2022 End: 02-13-2022 Fluticasone Propionate 50 mcg/actuation blister with device Discontinued 2 NMA INHALATION TWICE A DAY as needed February 13, 2022 12:00am February 13, 2022 10:41am Start: 02-13-2022 End: 02-13-2022 Fluticasone Propionate Disco ntinued 2 INH INHALATION TWICE A DAY February 13, 2022 12:00am February 13, 2022 10:41am Start: 04-06-2020 2 spray, Nasal , DAILY, First dose on Samia 04/06/20 at 1645 Start: 12-14-2019 2 spray, Nasal , DAILY, First dose on 12/14/19 at 0900 Start: 10-21-2019 2 spray, Nasal , DAILY, First dose on Samia 10/21/19 at 0900 Start: 02-02-2015 take 2 spray(s) nasa l route in the morning fluticasone (Flonase) 50 MCG/ACT nasal spray Administer 2 sprays into affected nostril(s) in the morning. 0 02/02/2015 Active Start: 02-02-2015 fluticasone (F LONASE) 50 MCG/ACT nasal spray 2 sprays by Nasal route daily 1 Bottle 3 02/02/2015 Active End: 08-07-2023 fluticasone (Flonase) 50 MCG /ACT nasal spray Every 24 hours. 0 08/07/2023 Discontinued furosemide 80 mg oral tablet (20 sources) Loop Diuretic Start: 11-17-2017 End: 10-25-2019 take 1 tablet by mouth once daily furosemide (LASIX) 80 MG tablet Take 1 tablet by mouth daily 60 tablet 3 11/17/2017 10/25/2019 Discontinued (Stop Taking at Discharge) Start: 04-08-2014 End: 11-04-2018 Furosemide 40 MG tablet Disc ontinued 80 mg PO NEEDED as needed for Swelling April 08, 2014 1:00am November 04, 2018 12:31pm Start: 04-08-2014 End: 11-04-2018 Furosemide Discontinued 80 M G PO NEEDED April 08, 2014 1:00am November 04, 2018 12:31pm End: 08-07-2023 furosemide (Lasix) 40 MG tab let Every 24 hours. 0 08/07/2023 Discontinued gabapentin 300 mg oral capsule (20 sources) Anti-epileptic Agent Start: 11-30-2024 End: 11-30-2024 take 300 mg by mouth once daily 300 mg, Oral, Nightly, First dose (after last modification) on Fri11/30/24 at 2099 Start: 11-30-2024 End: 11-30-2024 take 300 mg by mouth once daily 300 mg, Oral, Nightly, First dose (after last modification) on Fri11/30/24 at 2099 Start: 11-30-2024 End: 11-30-2025 take 1 capsule by mouth once daily gabapentin (Neurontin) 300 MG capsule Take 1 capsule (300 mg) by mouth Nightly. 30 capsule 11/30/2024 11/30/2025 Active Start: 11-25-2024 End: 11-30-2024 take 200 mg by mouth once daily 200 mg, Oral, Nightly, First dose on Fri11/25/242099 Start: 04-18-2023 End: 09-01-2023 take 200 mg by mouth at bedtime Gabapentin Active 200 MG PO AT BEDTIME 60 September 01, 2023 7:59pm Start: 08-29-2022 End: 04-18-2023 take 200 mg by mouth at bedtime Gabapentin Discontinue d 200 MG PO AT BEDTIME August 29, 2022 12:00am April 18, 2023 5:10pm Start: 08-29-2022 End: 04-18-2023 take 200 mg by mouth at bedtime Gabapentin Discontinue d 200 MG PO AT BEDTIME August 28, 2022 11:00pm April 18, 2023 4:10pm Start: 08-29-2022 take 200 mg by mouth at bedtim e Gabapentin Active 200 MG PO AT BEDTIME August 28, 2022 11:00pm Start: 08-29-2022 take 200 mg by mouth at bedtim e Gabapentin Active 200 MG PO AT BEDTIME August 29, 2022 12:00am Start: 02-13-2022 End: 11-30-2024 take 2 capsules by mouth once daily gabapentin (Neurontin) 100 MG capsule Take 2 capsules by mouth Nightly. 03/04/2022 11/30/2024 Discontinued (Stop taking at discharge) Start: 02-13-2022 End: 08-29-2022 take 200 mg by mouth at bedtime Gabapentin Discontinue d 200 MG PO AT BEDTIME February 13, 2022 10:37am August 29, 2022 9:57am Start: 11-04-2020 End: 02-13-2022 take 1 capsule by mouth three times daily Gabapentin 100 mg Capsule Discontinued 100 mg PO THREE TIMES A DAY November 04, 2020 12:00am February 13, 2022 10:41am Start: 08-25-2019 End: 05-30-2020 take 1 capsule by mouth three times daily gabapentin (NEURONTIN) 100 MG capsule Take 1 capsule by mouth 3 times daily for 180 days. 270 capsule 3 12/02/2019 05/30/2020 Active Start: 05-28-2018 End: 05-03-2019 take 1 capsule by mouth three times daily Gabapentin 100 MG capsule Discontinued 100 mg PO THREE TIMES A DAY May 28, 2018 1:00am November 10, 2018 8:49am Comment on above: TAKE 2 CAPSULES BY M OUTH ONCE DAILY AT BEDTIME FOR 90 DAYS gelatin adsorbable (GELFOAM) sponge (1 source) Start: 10-21-2019 End: 10-21-2019 gelatin adsorbable (GELFOAM) sponge glucagon (rdna) 1 mg injection (4 sources) Antihypoglycemic Agent Start: 11-25-2024 End: 11-30-2024 1 mg, IntraMUSCular, PRN, low blood sugar, Blood glucose less than 70 mg/dL and patient NOT ALERT or NPO and does not have IV access., Starting on Fri11/25/24 at 1710, After administration, attempt intravenous access and start D5W at 100 mL/hr. Repeat blood glucose in 15 minutes x2 and notify provider. Start: 12-14-2019 glucagon (rDNA ) injection 1 mg Start: 10-22-2019 glucagon (rDNA ) injection 1 mg 50 ml glucose 50 mg/ml injection (10 sources) Start: 11-25-2024 End: 11-30-2024 100 mL/hr, IntraVENous, PRN, Blood sugar less than 70mg/dL, Starting on Samia 11/25/24 at 1710, Start infusion following administration of dextrose 50% or glucagon. Start: 11-25-2024 End: 11-30-2024 12.5 g, IntraVENous, PRN, lo w blood sugar, Blood glucose less than 70 mg/dL and patient NOT ALERT or NPO., Starting on Fri11/25/24 at 1710, If patient does not respond within 5 minutes, repeat dose x1. Start D5W at 100 mL/hour until ordering provider can be reached. Repeat blood glucose in 15 minutes. If blood glucose is less than 70 mg/dL, repeat treatment and recheck blood glucose in 15 minutes x2. If using Glucostabilizer, dose as instructed per system. Start: 12-14-2019 glucose (GLUTO SE) 40 % oral gel 15 g Start: 12-14-2019 dextrose 50 % IV solution Start: 12-14-2019 dextrose 5 % s olution Start: 10-22-2019 dextrose 5 % s olution Start: 10-22-2019 glucose (GLUTO SE) 40 % oral gel 15 g Start: 10-22-2019 dextrose 50 % IV solution 1 ml haloperidol 5 mg/ml prefilled syringe (2 sources) Typical Antipsychotic Start: 11-29-2024 End: 11-30-2024 inject 0.5 mg by intramuscular injection every six hours as needed 0.5 mg, IntraMUSCular, Every 6 hours PRN, agitation, second line for agitation, [place] PRN Haldol for ONLY if danger to self/others/treatment, Starting on Fri11/29/24 at 1243, IM route of administration preferred. Because of the risk of TdP and QT prolongation, ECG monitoring is recommended if haloperidol is given IV 0.5 ml heparin sodium, porcine 79105 unt/ml prefilled syringe (4 sources) Unfractionated Heparin, Anti-coagulant Start: 11-25-2024 End: 11-30-2024 inject 1 dose by subcutaneous injection twice daily 5,000 Units, SubCUTAneous, Every 12 hours scheduled (2 times per day), First dose on Samia 11/25/24 at 0900 Start: 10-25-2019 End: 10-26-2019 heparin flush 100 UNIT/ML injection 500 Units Start: 10-20-2019 inject 5000 [IU] by subcutaneous injection every eight hours 5,000 Units, Subcutaneous, EVERY 8 HOURS, First dose on Fri10/20/19 at 2300 1 ml HYDROmorphone hydrochloride 1 mg/ml cartridge (1 source) Opioid Agonist Start: 04-06-2020 End: 04-06-2020 HYDROmorphone (DILAUDID) injection 0.5 mg hydrOXYzine pamoate 25 mg oral capsule (2 sources) Antihistamine Start: 11-28-2024 End: 11-28-2024 take 25 mg by mouth once 25 mg, Oral, Once, On Fri11/28/24 at 1930, For 1 dose iron sucrose (VENOFER) 100 mg in sodium chloride 0.9 % 100 mL IVPB (1 source) Start: 10-24-2019 End: 10-24-2019 iron sucrose (VENOFER) 100 mg in sodium chloride 0.9 % 100 mL IVPB iron sucrose (VENOFER) 300 mg in sodium chloride 0.9 % 250 mL IVPB (1 source) Start: 04-02-2019 End: 04-02-2019 iron sucrose (VENOFER) 300 mg in sodium chloride 0.9 % 250 mL IVPB 4 ml labetalol hydrochloride 5 mg/ml cartridge (2 sources) beta-Adrenergic Richy Start: 04-06-2020 End: 04-06-2020 labetalol (NORMODYNE;TRANDATE ) injection 5 mg Start: 10-20-2019 10 mg, Intrave nous, EVERY 4 HOURS PRN, High Blood Pressure, SBP>160. Use first prior to hydralazine order, Starting Fri10/20/19 at 2232 HOLD for HR<60 Leg Brace (Andrés Ankle Brace) misc (12 sources) Start: 08-29-2022 End: 11-28-2022 Leg Brace (Andrés Ankle Brace) misc Discontinued 0 .Route 1 August 28, 2022 11:00pm November 28, 2022 8:54am daily Start: 08-29-2022 End: 11-28-2022 Leg Brace (Andrés Ankle Brace) misc Discontinued 0 .Route August 29, 2022 12:00am November 28, 2022 9:54am daily Start: 08-29-2022 Leg Brace ([employer]) misc Active 0 .Route 1 August 29, 2022 12:00am daily levoFLOXacin 500 mg oral tablet (20 sources) Quinolone Antimicrobial Start: 03-12-2023 End: 04-02-2023 Levofloxacin 500 mg tablet Discontinued 500 mg PO Q48H March 12, 2023 12:00am April 02, 2023 9:30am Start: 11-21-2013 End: 12-01-2013 take 1 tablet by mouth once daily Levofloxacin 500 MG tablet Discontinued 500 mg PO DAILY November 21, 2013 12:00am December 01, 2013 9:42am 10 ml lidocaine hydrochloride 10 mg/ml injection (1 source) Antiarrhythmic, Amide Local Anesthetic Start: 10-21-2019 End: 10-21-2019 lidocaine PF 1 % injection 1 ml LORazepam 2 mg/ml injection (2 sources) Benzodiazepine Start: 11-25-2024 End: 11-25-2024 0.25 mg, IntraVENous, Once, On Samia 11/25/24 at 0930, For 1 dose, For IV doses dilute dose with 1ml NS. 1 ml meperidine hydrochloride 25 mg/ml cartridge (1 source) Opioid Agonist Start: 04-06-2020 End: 04-06-2020 meperidine (DEMEROL) injection 12.5 mg methylPREDNISolone sodium (SOLU-MEDROL) 1,000 mg in sodium chloride 0.9 % 250 mL IVPB (2 sources) Start: 10-23-2019 End: 10-23-2019 methylPREDNISolone sodium (SOLU-MEDROL) 1,000 mg in sodium chloride 0.9 % 250 mL IVPB Start: 10-21-2019 End: 10-22-2019 methylPREDNISolone sodium (S STEFAN-MEDROL) 1,000 mg in sodium chloride 0.9 % 250 mL IVPB metoprolol tartrate 25 mg oral tablet (20 sources) beta-Adrenergic Richy Start: 11-25-2024 End: 11-30-2024 take 25 mg by mouth twice daily 25 mg, Oral, 2 times daily, First dose on Samia 11/25/24 at 0900 Start: 01-14-2023 End: 09-13-2024 take 1 tablet by mouth once daily Metoprolol Tartrate 25 mg tablet Discontinued 25 mg PO DAILY December 01, 2023 4:07pm December 11, 2023 10:45am Start: 12-14-2019 metoprolol (LO PRESSOR) injection 5 mg Start: 05-28-2018 End: 01-14-2023 take 1 tablet by mouth twice daily Metoprolol Tartrate 25 MG tablet Discontinued 25 mg PO TWICE A DAY May 28, 2018 8:45pm January 14, 2023 9:36am Start: 12-20-2013 take 0.5 tablet by m outh twice daily metoprolol tartrate, short acting, 25 mg tablet Take 0.5 tablets by mouth twice daily. 30 tablet 0 12/20/2013 Active Start: 12-01-2013 End: 05-28-2018 Metoprolol Tartrate 25 MG ta blet Discontinued 12.5 mg PO TWICE A DAY December 01, 2013 12:00am May 28, 2018 8:46pm Start: 12-01-2013 End: 05-28-2018 take 12.5 mg by mouth twice daily Metoprolol Tartrate Discontinued 12.5 MG PO TWICE A DAY December 01, 2013 12:00am May 28, 2018 8:46pm metoprolol tartr ate (Lopressor) 25 MG tablet every 12 hours. Active Comment on above: Take 0.5 tablets by mouth twice daily. 1 ml midazolam 5 mg/ml cartridge (1 source) Benzodiazepine Start: 10-21-19 End: 10-21-19 midazolam (VERSED) injection minocycline 100 mg oral capsule (7 sources) Tetracycline-class Drug Start: 03-12-20 End: 04-02-20 take 1 capsule by mouth twice daily Minocycline 100 mg capsule Discontinued 100 mg PO TWICE A DAY March 12, 2023 12:00am April 02, 2023 9:30am mirtazapine 15 mg oral tablet (20 sources) Start: 03-12-20 End: 06-08-19 take 1 tablet by mouth at bedtime Mirtazapine 15 mg tablet Discontinued 15 mg PO AT BEDTIME December 10, 2023 4:27pm March 09, 2024 11:09am nystatin [id number] unt/ml oral suspension (12 sources) Polyene Antifungal Start: 12-02-19 End: 08-07-19 nystatin (Mycostatin) [id number] UNIT/ML suspension Start: 12-01-2022 End: 12-15-2022 nystatin (MYCOSTATIN) 100,00 0 unit/mL suspension Indications: Thrush (oral) Take 5 mL by mouth four times daily for 14 days. 1tsp swish in mouth for several minutes, then swallow (or expectorate) 4 times daily until gone. 200 mL 0 12/01/2022 12/15/2022 Active Comment on above: Take 5 mL by mouth f our times daily for 14 days. 1tsp swish in mouth for several minutes, then swallow (or expectorate) 4 times daily until gone. 24 hr oxybutynin chloride 10 mg extended release oral tablet (20 sources) Cholinergic Muscarinic Antagonist Start: 11-13-19 End: 08-07-19 take 1 tablet by mouth once daily Oxybutynin Chloride 10 mg tablet extended release 24hr Discontinued 10 mg PO DAILY November 28, 2022 12:00am March 12, 2023 9:51am oxyCODONE hydrochloride 5 mg oral capsule (1 source) Opioid Agonist End: 08-07-19 oxyCODONE (Oxy-IR) 5 MG immediate release capsule every 6 hours. 0 08/07/2023 Discontinued perflutren protein A microsphere (Optison) 3 mL in sodium chloride (PF) 0.9 % 10 mL IV (4 sources) Start: 11-29-19 End: 12-01-19 Start: 11-25-2024 End: 11-25-2024 0-10 mL, IntraVENous, IMG on ce PRN, other, Starting on Samia 11/25/24 at 1450, For 1 dose, CV Procedural Medications, Draw entire 3 mL vial of perflutren protein A microspheres into a syringe along with 7 ml of NS from a vial to a total volume of 10 mL. polyethylene glycol 3350 41034 mg powder for oral solution (12 sources) Osmotic Laxative Start: 11-25-2024 End: 11-30-2024 take 17 g by mouth every twenty-four hours as needed for constipation Start: 03-12-2023 End: 04-02-2023 Polyethylene Glycol 3350 (Cl earlax) 17 gram/dose powder Discontinued 4 g PO DAILY March 12, 2023 12:00am April 02, 2023 9:30am Start: 04-06-2020 17 g, Oral, DA FREDA PRN, Constipation, Starting [facility] 04/06/20 at 1615 First line therapy for constipation Start: 12-13-2019 polyethylene g lycol (GLYCOLAX) packet 17 g Start: 10-20-2019 17 g, Oral, DA FREDA PRN, Constipation, Starting [facility] 10/20/19 at 2229 First line therapy for constipation potassium phosphate 155 mg / sodium phosphate, dibasic 852 mg / sodium phosphate, monobasic 130 mg oral tablet (2 sources) Start: 11-28-2024 End: 11-28-2024 1 tablet (250 mg), Oral, Onc e, On Fri11/28/24 at 1600, For 1 dose, Each tablet contains 250 mg phosphorus, 298 mg sodium, 1.1 mEq potassium. predniSONE 2.5 mg oral table t (13 sources) Start: 01-27-2020 End: 04-07-2020 predniSONE (DELTASONE) 2.5 M G tablet Take by mouth 0 01/27/2020 04/07/2020 Discontinued (Stop Taking at Discharge) Start: 12-16-2019 End: 12-26-2019 take 2 tablets by mouth once daily predniSONE (DELTASONE) 20 MG tablet Indications: pt already has this medication at home Take 2 tablets by mouth daily for 10 days Indications: pt already has this medication at home 20 tablet 0 12/16/2019 12/26/2019 Active Start: 12-14-2019 take 40 mg by mouth once daily 40 mg, Oral, DAILY, First dose on Fri12/14/19 at 0900 Start: 10-25-2019 End: 12-15-2019 take 3 tablets by mouth once daily predniSONE (DELTASONE) 20 MG tablet Take 3 tablets by mouth daily 150 tablet 0 10/25/2019 12/15/2019 Discontinued (Stop Taking at Discharge) Start: 10-24-2019 predniSONE (DE LTASONE) tablet 60 mg Start: 12-03-2013 take 1 tablet by wolfgang th twice daily predniSONE 20 mg tablet Take 1 tablet by mouth twice daily. 0 12/03/2013 Active Start: 12-02-2013 take 4 tablets by mo [facility] once daily at mealtime predniSONE 10 mg tablet Take 40 mg po daily with food. 0 12/02/2013 Active Comment on above: Take 40 mg po daily with food. Take 1 tablet by wolfgang twice daily. pregabalin 25 mg oral capsule (20 sources) Start: 3 End: take 1 capsule by mouth twice daily Pregabalin 25 mg capsule Discontinued 25 mg PO TWICE A DAY 60 August 30, 2024 4:15pm September 28, 2024 8:44am QUEtiapine 25 mg oral tablet (8 sources) Atypical Antipsychotic Start: 5 End: take 12.5 mg by mouth twice daily as needed 12.5 mg, Oral, 2 times daily PRN, agitation, first line for agitation,[place] PRN Seroquel for ONLY if danger to self/others/treatmen t, Starting on Fri11/29/24 at 1242 Start: 11-27-2024 End: 11-30-2024 take 1 tablet by mouth once daily QUEtiapine (SEROquel) 25 MG tablet Take 1 tablet (25 mg) by mouth Nightly. 30 tablet 11/30/2024 11/30/2024 Discontinued (Stop taking at discharge) Start: 11-27-2024 End: 11-27-2024 take 12.5 mg by mouth once 12.5 mg, Oral, Once, On 11/27/24 at 0200, For 1 dose Start: 11-27-2024 End: 11-27-2024 take 12.5 mg by mouth once 12.5 mg, Oral, Once, On 11/27/24 at 0200, For 1 dose riTUXimab (RITUXAN) 770 mg i n sodium chloride 0.9 % 500 mL chemo IVPB (2 sources) Start: 11-15-2019 End: 11-15-2019 riTUXimab (RITUXAN) 770 mg i n sodium chloride 0.9 % 500 mL chemo IVPB Start: 10-25-2019 End: 10-25-2019 riTUXimab (RITUXAN) 770 mg i n sodium chloride 0.9 % 500 mL chemo IVPB riTUXimab (RITUXAN) 780 mg i n sodium chloride 0.9 % 500 mL chemo IVPB (2 sources) Start: 11-08-2019 End: 11-08-2019 riTUXimab (RITUXAN) 780 mg i n sodium chloride 0.9 % 500 mL chemo IVPB Start: 11-01-2019 End: 11-01-2019 riTUXimab (RITUXAN) 780 mg i n sodium chloride 0.9 % 500 mL chemo IVPB salicylic acid 30 mg/ml topical cream (8 sources) Start: 09-09-2023 End: 09-09-2023 Salicylic Acid 3 % cream Discontinued 1 NMA TOPICAL DAILY September 09, 2023 12:00am September 09, 2023 2:29pm Start: 09-09-2023 End: 10-15-2024 Salicylic Acid 6 % cream Dis continued 1 NMA TOPICAL AT BEDTIME 454 September 09, 2023 12:00am October 15, 2024 1:14pm hydrate skin for >=5 mins before use; occlude area overnight; wash off in morning Start: 09-09-2023 Salicylic Acid Active 1 APPLIC TOPICAL AT BEDTIME 454 September 09, 2023 12:00am hydrate skin for >=5 mins before use; occlude area overnight; wash off in morning Sennosides (Senna) 8.6 mg tablet (7 sources) Start: 03-12-2023 End: 04-02-2023 take 2 tablets by mouth twice daily Sennosides (Senna) 8.6 mg tablet Discontinued 17.2 mg PO TWICE A DAY March 12, 2023 12:00am April 02, 2023 9:30am Start: 03-12-2023 End: 04-02-2023 take 2 tablets by mouth twice daily Sennosides (Senna) 8.6 mg tablet Discontinued 17.2 MG PO TWICE A DAY March 12, 2023 12:00am April 02, 2023 9:30am Start: 03-12-2023 End: 04-02-2023 take 2 tablets by mouth twice daily Sennosides (Senna) 8.6 mg tablet Discontinued 17.2 MG PO TWICE A DAY March 11, 2023 11:00pm April 02, 2023 8:30am Start: 03-12-2023 take 2 tablets by mo [facility] twice daily Sennosides (Senna) 8.6 mg tablet Active 17.2 MG PO TWICE A DAY March 12, 2023 12:00am sodium bicarbonate 650 mg or al tablet (20 sources) Start: 12-11-2019 End: 08-29-2022 Sodium Bicarbonate 650 mg ta blet Discontinued 1 {tbl} PO THREE TIMES A DAY December 11, 2019 12:00am August 29, 2022 9:57am Start: 12-11-2019 End: 08-29-2022 take 1 tablet by mouth three times daily Sodium Bicarbonate Discontinued 1 TABLET PO THREE TIMES A DAY December 11, 2019 12:00am August 29, 2022 9:57am Start: 10-23-2019 take 1 tablet by [facility] twice daily sodium bicarbonate 650 MG tablet Take 1 tablet by mouth 2 times daily 30 tablet 0 10/25/2019 Active 50 ml sodium chloride 9 mg/ml injection (20 sources) Start: 11-25-2024 End: 11-27-2024 take 50 mL intravenously every hour 50 mL/hr, IntraVENous, Continuous, Starting on Fri11/25/24 at 0630 Start: 11-25-2024 End: 11-30-2024 take 5-40 mL intravenously every twelve hours 5-40 mL, IntraVENous, Every 12 hours, First dose on Fri11/25/24 at 0630, For Line Patency: Peripheral IV = 5 mL; Midline or Central Line = 10 mL/lumen. If following IV push medication, administer flush at same rate as the IV push. Flush volume is determined by type of infusion therapy being given. For non-viscous solutions use: Peripheral IV = 5 mL Midline or Central Line = 10 mL/lumen For viscous solutions (i.e. blood components, parenteral nutrition, contrast media, or after obtaining blood sample) use: Peripheral IV = 10 mL Midline or Central Line = 20 mL/lumen Start: 11-25-2024 End: 11-30-2024 Start: 11-25-2024 End: 11-30-2024 Start: 12-31-2022 End: 12-31-2022 sodium chloride 0.9% (NS) fl ush 10 mL Start: 12-31-2022 End: 12-31-2022 sodium chloride 0.9 % infusi on Start: 12-31-2022 End: 12-31-2022 sodium chloride 0.9% (NS) fl ush 5-40 mL Start: 04-06-2020 10 mL, Intrave nous, EVERY 12 HOURS SCHEDULED (2 times per day), First dose on Samia 04/06/20 at 2100 Start: 04-06-2020 Intravenous, a t 150 mL/hr, CONTINUOUS, Starting Samia 04/06/20 at 1645 Start: 04-06-2020 take 10 mL intraveno us route once as needed 10 mL, Intravenous, PRN, Line Care, After every IV line use, Starting Samia 04/06/20 at 1615 Start: 12-13-2019 sodium chlorid e flush 0.9 % injection 10 mL Start: 12-13-2019 End: 12-14-2019 0.9 % sodium chloride bolus Start: 11-15-2019 End: 11-15-2019 0.9 % sodium chloride infusi on Start: 11-08-2019 End: 11-08-2019 0.9 % sodium chloride infusi on Start: 11-01-2019 End: 11-01-2019 0.9 % sodium chloride infusi on Start: 10-25-2019 End: 10-26-2019 sodium chloride flush 0.9 % injection 5 mL Start: 10-25-2019 End: 10-25-2019 0.9 % sodium chloride infusi on Start: 10-20-2019 10 mL, Intrave nous, EVERY 12 HOURS SCHEDULED (2 times per day), First dose on Fri10/20/19 at 2300 Start: 10-20-2019 take 10 mL intraveno us route once as needed 10 mL, Intravenous, PRN, Line Care, After every IV line use, Starting Fri10/20/19 at 2229 sodium phosphates 10 mmol in dextrose 5 % 100 mL IVPB (2 sources) Start: 11-27-2024 End: 11-27-2024 10 mmol, IntraVENous, at 66.7 mL/hr, Administer over 90 Minutes, Once, On 11/27/24 at 0630, For 1 dose sulfamethoxazole 400 mg / trimethoprim 80 mg oral tablet (20 sources) Dihydrofolate Reductase Inhibitor Antibacterial, Sulfonamide Antimicrobial Start: 11-04-2020 take 1 tablet by mouth once daily Sulfamethoxazole- Trimethoprim Active 1 TABLET PO DAILY November 04, 2020 12:00am Start: 09-04-2020 End: 08-07-2023 Sulfamethoxazole-Trimethopri m (Bactrim) 400-80 mg tablet Discontinued 1 {tbl} PO DAILY November 04, 2020 12:00am August 29, 2022 9:57am Start: 09-04-2020 take 1 tablet by wolfgang th in the morning sulfamethoxazole-trimethoprim (Bactrim) 400-80 MG tablet Take 1 tablet by mouth in the morning. 0 09/04/2020 Active Start: 10-26-2019 End: 05-08-2020 take 1 tablet by mouth once daily sulfamethoxazole-trimethoprim (BACTRIM;SEPTRA) 400-80 MG per tablet Take 1 tablet by mouth daily 90 tablet 1 02/08/2020 05/08/2020 Active Start: 10-24-2019 sulfamethoxazo le-trimethoprim (BACTRIM;SEPTRA) 400-80 MG per tablet 1 tablet tamsulosin hydrochloride 0.4 mg oral capsule (20 sources) alpha-Adrenergic Richy Start: 11-25-2024 End: 11-30-2024 take 0.4 mg by mouth once daily 0.4 mg, Oral, Daily, First dose on Fri11/25/24 at 0900, Do not crush, chew, or split. Start: 01-15-2024 End: 08-30-2024 take 2 capsules by mouth once daily Tamsulosin 0.4 mg capsule Active 0.8 mg PO daily 60 August 30, 2024 4:14pm Start: 12-28-2019 take 1 capsule by mo ut twice daily tamsulosin (FLOMAX) 0.4 MG capsule Take 1 capsule by mouth 2 times daily 60 capsule 5 12/28/2019 Active Start: 08-11-2018 take 0.4 mg by mouth once pretty y 0.4 mg, Oral, DAILY, First dose on Fri12/14/19 at 0900 Do not crush or break. tamsulosin (Flom ax) 0.4 MG 24 hr capsule Every 24 hours. Active take 1 capsule by mo uth every twenty-four hours in the morning tamsulosin (Flomax) 0.4 MG 24 hr capsule Take 1 capsule by mouth in the morning. 0 Active Comment on above: Take 0.4 mg by mouth once daily. traZODone hydrochloride 50 mg oral tablet (1 source) Serotonin Reuptake Inhibitor End: 4 traZODone (Desyrel) 50 MG tablet Every 24 hours. 0 08/07/2023 Discontinued zolpidem tartrate 5 mg oral tablet (1 source) gamma-Aminobutyric Acid-ergic Agonist Start: 4 take 1 tablet by mouth every twenty-four hours as needed zolpidem (AMBIEN) 5 mg tablet Take 1 tablet by mouth at bedtime as needed for Sedation. 0 12/02/2013 Active Comment on above: Take 1 tablet by wolfgang th at bedtime as needed for Sedation. Problems Active Problems Problem Classification Problem Date Documented Date Episodic/Chronic Acute and unspecified renal failure (10 sources) [id number] renal failure; Translations: [Acute worsening of stage 4 chronic kidney disease (HCC)] Onset: 6 10-20-2019 Chronic Administrative/social admission (4 sources) Counseling procedure with explicit context; Translations: [Persons encountering health services in other specified circumstances] 07-29-2018 Episodic Allergic reactions (11 sources) Allergic condition; Translations: [Allergy, unspecified, initial encounter] Onset: 3 08-07-2023 Episodic Chronic kidney disease (20 sources) Chronic kidney disease stage 3; Translations: [Chronic kidney disease] Onset: 6 07-29-2018 Chronic Comment on above: Began tx 08/02/22 Coagulation and hemorrhagic disorders (5 sources) Blood coagulation disorder; Translations: [Coagulation defect, unspecified] Onset: 3 08-07-2023 Chronic Congestive heart failure; nonhypertensive (20 sources) Congestive heart failure, unspecified; Translations: [Heart failure] Onset: 1 Resolved: 0 07-29-2018 Chronic Comment on above: 65% per echo 11/29/[address] Driscoll @ [facility]; 46% per echo 04/03/14 @ [facility]/[place].65% per stress echo 10/10/18. Diabetes mellitus with complications (20 sources) Type 2 diabetes mellitus with diabetic chronic kidney disease; Translations: [Type 2 diabetes mellitus in obese] Onset: 9 Resolved: 9 08-12-2018 Chronic Diabetes mellitus without complication (20 sources) Prediabetes; Translations: [Prediabetes] Onset: 3 12-06-2018 Episodic Diabetes mellitus without complication (3 sources) Diabetes mellitus without complication Diverticulosis and diverticulitis (20 sources) Diverticulosis of large intestine without diverticulitis; Translations: [Diverticulosis of large intestine without perforation or abscess without bleeding] Onset: 8 08-22-2017 Chronic Esophageal disorders (20 sources) Gastroesophageal reflux disease; Translations: [Gastro-esophageal reflux disease without esophagitis] Onset: 0 07-29-2018 Chronic Esophageal disorders (2 sources) Esophageal disorders Essential hypertension (20 sources) Hypertensive disorder; Translations: [Essential (primary) hypertension] Onset: 0 07-29-2018 Chronic Comment on above: pt to work on wt los s Genitourinary symptoms and ill-defined conditions (12 sources) Urge incontinence of urine; Translations: [Urge incontinence] Onset: 7 07-24-2016 Chronic Genitourinary symptoms and ill-defined conditions (20 sources) Increased frequency of urination; Translations: [Delay when starting to pass urine] Onset: 3 Resolved: 9 03-10-2017 Episodic Hemorrhoids (1 source) Internal hemorrhoids grade I; Translations: [First degree hemorrhoids] 08-22-2017 Hyperplasia of prostate (20 sources) Benign prostatic hypertrophy with outflow obstruction; Translations: [Benign prostatic hyperplasia with lower urinary tract symptoms] Onset: 7 07-29-2018 Chronic Hypertension with complications and secondary hypertension (20 sources) 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; Translations: [Hypertensive chronic kidney disease with stage 5 chronic kidney disease or end stage renal disease] Onset: 1 03-01-2022 Chronic Miscellaneous mental health disorders (12 sources) Psychophysiologic insomnia; Translations: [Insomnia, unspecified] Onset: 4 04-02-2023 Chronic Mycoses (1 source) Candidiasis of mouth; Translations: [Candidal stomatitis] 12-01-2022 Episodic Neoplasms of unspecified nature or uncertain behavior (5 sources) Neoplasm of unspecified behavior of bone, soft tissue, and skin; Translations: [Neoplasm of unspecified nature of bone, soft tissue, and skin] 01-14-2023 Episodic Nutritional deficiencies (20 sources) Vitamin D deficiency; Translations: [Vitamin D deficiency, unspecified] Onset: 6 11-29-2015 Chronic Open wounds of head; neck; and trunk (1 source) Tear of skin; Translations: [Full-term ] 09-09-2023 Episodic Osteoporosis (20 sources) Age-related osteoporosis without current pathological fracture; Translations: [Osteoporosis] Onset: 6 10-09-2015 Chronic Other aftercare (7 sources) Wound finding; Translations: [Encounter for other specified aftercare] 03-17-2023 Episodic Other aftercare (3 sources) Encounter for follow-up examination after completed treatment for conditions other than malignant neoplasm; Translations: [Other follow-up examination] 03-12-2023 Episodic Other aftercare (1 source) Other fci (current) drug therapy; Translations: [Other fci (current) drug therapy] Onset: 5 Episodic Other bone disease and musculoskeletal deformities (20 sources) Avascular necrosis of bone of hip; Translations: [Idiopathic aseptic necrosis of unspecified femur] Onset: 6 07-09-2019 Chronic Other bone disease and musculoskeletal deformities (2 sources) Other specified disorders of bone density and structure, unspecified site; Translations: [Oth disrd of bone density and structure, unspecified site] Onset: 8 Episodic Other circulatory disease (16 sources) Arteriovenous fistula; Translations: [Arteriovenous fistula, acquired] Onset: 2 03-01-2022 Chronic Other circulatory disease (15 sources) Low blood pressure; Translations: [Hypotension, unspecified] 02-26-2019 Episodic Other connective tissue disease (1 source) History of total replacement of right hip joint; Translations: [Presence of right artificial hip joint] 08-07-2023 Chronic Other connective tissue disease (17 sources) Neuralgia and neuritis, unspecified; Translations: [Neuralgia, neuritis, and radiculitis, unspecified] 06-03-2022 Episodic Other connective tissue disease (1 source) Trochanteric bursitis of right hip; Translations: [Trochanteric bursitis, right hip] 08-07-2023 Episodic Other connective tissue disease (12 sources) Neurological symptom; Translations: [Unspecified symptoms and signs involving the nervous system] Onset: 5 11-25-2024 Episodic Other connective tissue disease (2 sources) Unspecified symptoms and signs involving the nervous system; Translations: [Unspecified symptoms and signs involving the nervous system] Onset: 5 Episodic Other diseases of kidney and ureters (5 sources) Hyperparathyroidism due to renal insufficiency; Translations: [Secondary hyperparathyroidism of renal origin] Onset: 3 08-07-2023 Chronic Other ear and sense organ disorders (20 sources) Hearing loss; Translations: [Unspecified hearing loss, unspecified ear] Onset: 5 04-04-2015 Chronic Comment on above: wears hearing aids Other ear and sense organ disorders (5 sources) Sensorineural hearing loss, bilateral; Translations: [Sensorineural hearing loss, bilateral] Onset: 4 08-07-2023 Chronic Other gastrointestinal disorders (13 sources) Heartburn; Translations: [Heartburn] 06-03-2022 Episodic Other hereditary and degenerative nervous system conditions (20 sources) Restless legs; Translations: [Restless legs syndrome] Onset: 3 05-30-2022 Chronic Other hereditary and degenerative nervous system conditions (4 sources) Restless legs syndrome; Translations: [Restless legs syndrome (RLS)] 04-02-2023 Chronic Other lower respiratory disease (20 sources) Dyspnea; Translations: [Shortness of breath] Resolved: 9 07-29-2018 Episodic Comment on above: due to thick mucous -- so will resume and see if hleps hwile doing w/u Other lower respiratory disease (1 source) Cough; Translations: [Cough in adult] 05-04-2024 Episodic Other male genital disorders (11 sources) H/O: male genital disorder; Translations: [Personal history of other diseases of male genital organs] 11-09-2022 Episodic Other nervous system disorders (20 sources) Neuropathy; Translations: [Polyneuropathy, unspecified] Onset: 2 07-29-2018 Chronic Comment on above: woudl like improvemt n with degree of it -- cont neurontin and try adding amitryplline woudl like improvemt n with degree of it -- cont neurontin and try adding amitryplline-- dint tolerate -- if needed in future: consider increasing gabapentin Other nervous system disorders (20 sources) Toxic polyneuropathy; Translations: [Polyneuropathy due to other toxic agents] Onset: 8 11-17-2017 Chronic Other nervous system disorders (20 sources) Disorder of brain; Translations: [Encephalopathy, unspecified] Onset: 2 02-12-2022 Chronic Other nervous system disorders (9 sources) Encephalopathy, unspecified; Translations: [Encephalopathy, unspecified] Onset: 5 Chronic Other nervous system disorders (3 sources) Polyneuropathy, unspecified; Translations: [Peripheral polyneuropathy] Onset: 3 Chronic Other nervous system disorders (1 source) Tremor, unspecified; Translations: [Abnormal involuntary movements] 06-09-2023 Episodic Other nervous system disorders (3 sources) Finding of hand region; Translations: [Tremor, unspecified] 12-11-2023 Episodic Other nervous system disorders (4 sources) Impaired cognition; Translations: [Other symptoms and signs involving cognitive functions and awareness] 11-30-2024 Episodic Other nervous system disorders (2 sources) Other symptoms and signs involving cognitive functions and awareness; Translations: [Other symptoms and signs involving cognitive functions and awareness] Onset: 5 Episodic Other non-traumatic joint disorders (5 sources) Pain in left ankle and joints of left foot; Translations: [Pain in joint, ankle and foot] 06-03-2022 Episodic Other non-traumatic joint disorders (3 sources) Effusion, right wrist; Translations: [Effusion of joint, forearm] 03-12-2023 Episodic Other nutritional; endocrine; and metabolic disorders (19 sources) Body mass index 30+ - obesity; Translations: [Obesity, unspecified] Onset: 8 07-29-2018 Chronic Other nutritional; endocrine; and metabolic disorders (20 sources) Morbid obesity; Translations: [Morbid (severe) obesity due to excess calories] Onset: 9 Resolved: 9 10-21-2019 Chronic Other skin disorders (6 sources) Actinic keratosis; Translations: [Actinic keratosis] 06-03-2022 Episodic Other skin disorders (1 source) Disorder of the skin and subcutaneous tissue, unspecified; Translations: [Unspecified disorder of skin and subcutaneous tissue] 09-09-2023 Episodic Other upper respiratory disease (5 sources) Allergic rhinitis; Translations: [Allergic rhinitis, unspecified] Onset: 4 08-07-2023 Chronic Other upper respiratory infections (17 sources) Chronic ethmoidal sinusitis; Translations: [Chronic ethmoidal sinusitis] Onset: 5 Resolved: 8 07-30-2017 Chronic Peripheral and visceral atherosclerosis (20 sources) Intermittent claudication; Translations: [Peripheral vascular disease, unspecified] Onset: 3 12-06-2018 Chronic Peritonitis and intestinal abscess (18 sources) Acute peritonitis; Translations: [Generalized (acute) peritonitis] Onset: 3 02-27-2023 Episodic Residual codes; unclassified (20 sources) Obstructive sleep apnea syndrome; Translations: [Obstructive sleep apnea (adult) (pediatric)] Onset: 0 10-20-2019 Chronic Residual codes; unclassified (2 sources) Obstructive sleep apnea (adult) (pediatric); Translations: [Obstructive sleep apnea (adult)(pediatric)] 06-03-2022 Chronic Residual codes; unclassified (2 sources) H/O: Disorder; Translations: [Diabetic Neuropathy] 07-29-2018 Episodic Residual codes; unclassified (20 sources) Family history of cancer of colon; Translations: [Family history of malignant neoplasm of digestive organs] Onset: 6 Resolved: 7 03-10-2017 Episodic Residual codes; unclassified (4 sources) Family history of malignant neoplasm of digestive organs; Translations: [Family history of malignant neoplasm of gastrointestinal tract] 06-03-2022 Episodic Residual codes; unclassified (3 sources) Altered mental status, unspecified; Translations: [Altered mental status, unspecified] Onset: Episodic Screening and history of mental health and substance abuse codes (15 sources) Tobacco use and exposure - finding; Translations: [Personal history of nicotine dependence] 06-03-2022 Episodic Sexually transmitted infections (not HIV or hepatitis) (1 source) Early congenital syphilitic osteochondropathy; Translations: [Early congenital syphilitic osteochondropathy] Onset: 5 Episodic Systemic lupus erythematosus and connective tissue disorders (20 sources) Granulomatosis with polyangiitis; Translations: [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] Onset: 5 Resolved: 7 07-29-2018 Chronic Unclassified (2 sources) Nutritional counseling Unclassified (2 sources) Diarrhea, unspecified type Unclassified (3 sources) BPH associated with nocturia Unclassified (3 sources) Hypertension, unspecified type Unclassified (2 sources) Elevated blood pressure reading Unclassified (3 sources) BMI 36.0-36.9,adult Unclassified (1 source) Cough, unspecified; Translations: [Cough, unspecified] Onset: 5 Urinary tract infections (1 source) Urinary tract infectious disease; Translations: [Urinary tract infection without hematuria, site unspecified] Episodic Past or Other Problems Problem Classification Problem Date Documented Da te Episodic/Chronic Abdominal hernia (20 sources) Hernia of abdominal cavity; Translations: [Left inguinal hernia ] Onset: 3 07-09-2019 Episodic Abdominal pain (15 sources) Abdominal pain; Translations: [Unspecified abdominal pain] Onset: 3 02-25-2023 Episodic Chronic obstructive pulmonary disease and bronchiectasis (20 sources) Bronchitis; Translations: [Bronchitis, not specified as acute or chronic] Onset: 3 02-12-2022 Episodic Complication of device; implant or graft (8 sources) Pain due to hip joint prosthesis; Translations: [Pain due to internal orthopedic prosthetic devices, implants and grafts, initial encounter] Onset: 3 08-04-2023 Episodic Deficiency and other anemia (20 sources) Iron deficiency anemia; Translations: [Iron deficiency anemia, unspecified] Onset: 9 10-21-2019 Episodic Diabetes mellitus without complication (14 sources) Diabetes mellitus without mention of complication, type II or unspecified type, not stated as uncontrolled; Translations: [Diabetes mellitus without complication] Onset: 7 Resolved: 1 07-29-2018 Chronic Esophageal disorders (12 sources) Disorder of esophagus; Translations: [Other specified diseases of esophagus] Resolved: 8 11-17-2017 Episodic Fever of unknown origin (20 sources) Fever; Translations: [Fever, unspecified] Onset: 3 02-17-2021 Episodic Fluid and electrolyte disorders (20 sources) Hyperkalemia; Translations: [Hyperkalemia] Onset: 2 Episodic Genitourinary congenital anomalies (4 sources) H/O: urinary anomaly; Translations: [Personal history of other specified conditions] Onset: 0 03-01-2020 Episodic Hemorrhoids (1 source) Internal hemorrhoids grade I 08-22-2017 Episodic Malaise and fatigue (20 sources) Fatigue; Translations: [Asthenia] Onset: 2 07-29-2018 Episodic Comment on above: mutifactorial -- win ter and overwt and lack of fitness-- and autoimmunity process -- with Wegners-- he states when he feels good he isnt tired Noninfectious gastroenteritis (5 sources) Noninfectious gastroenteritis; Translations: [Noninfective gastroenteritis and colitis, unspecified] Onset: 3 08-07-2023 Episodic Nonmalignant breast conditions (4 sources) Breast lump; Translations: [Unspecified lump in unspecified breast] Onset: 4 01-15-2024 Episodic Nonspecific chest pain (20 sources) Chest pain; Translations: [Chest pain, unspecified] Onset: 0 12-13-2019 Episodic Other aftercare (1 source) Anticoagulant effect; Translations: [half-way (current) use of anticoagulants] Resolved: 6 03-04-2016 Episodic Other and unspecified benign neoplasm (12 sources) Benign neoplasm of cecum; Translations: [Benign neoplasm of cecum] Resolved: 8 11-17-2017 Episodic Other and unspecified benign neoplasm (14 sources) History of adenomatous polyp of colon; Translations: [Personal history of colonic polyps] Onset: 8 Resolved: 8 07-30-2017 Episodic Other and unspecified benign neoplasm (20 sources) Adenomatous polyp of colon ; Translations: [Benign neoplasm of colon, unspecified] Onset: 6 01-27-2016 Episodic Other and unspecified benign neoplasm (12 sources) History of polyp of colon; Translations: [Personal history of colonic polyps] Resolved: 8 11-17-2017 Episodic Other circulatory disease (17 sources) Elevated blood pressure; Translations: [Elevated blood-pressure reading, without diagnosis of hypertension] Onset: 3 07-29-2018 Episodic Other connective tissue disease (12 sources) History of total hip arthroplasty; Translations: [Presence of right artificial hip joint] Onset: 6 Resolved: 7 03-10-2017 Chronic Other connective tissue disease (1 source) History of repair of hip joint; Translations: [Presence of right artificial hip joint] Onset: 6 Resolved: 0 07-09-2019 Chronic Other connective tissue disease (2 sources) Plantar fascial fibromatosis; Translations: [Plantar fascia syndrome] Onset: 7 12-16-2016 Episodic Other connective tissue disease (20 sources) Chronic neuropathic pain; Translations: [Neuralgia and neuritis, unspecified] Onset: 3 06-03-2022 Episodic Other connective tissue disease (5 sources) Swelling of upper limb; Translations: [Other specified soft tissue disorders] Onset: 4 08-07-2023 Episodic Other disorders of stomach and duodenum (12 sources) Nonulcer dyspepsia; Translations: [Other diseases of stomach and duodenum] Resolved: 8 11-17-2017 Episodic Other ear and sense organ disorders (5 sources) Bilateral tinnitus; Translations: [Tinnitus, bilateral] Onset: 4 08-07-2023 Episodic Other fractures (20 sources) Compression fracture of lumbar spine; Translations: [Wedge compression fracture of first lumbar vertebra, initial encounter for closed fracture] Onset: 5 12-30-2014 Episodic Other gastrointestinal disorders (17 sources) Diarrhea; Translations: [Diarrhea, unspecified] Onset: 3 07-29-2018 Episodic Comment on above: no blood -- EGD adn colonoscopy 2017-- both normal per patient-- DR Brian in [facility] did scope--if no better try XIfaxin Other gastrointestinal disorders (12 sources) Gastrointestinal symptom; Translations: [Other specified symptoms and signs involving the digestive system and abdomen] Resolved: 8 11-17-2017 Episodic Other gastrointestinal disorders (12 sources) H/O: gastrointestinal disease; Translations: [Personal history of other specified conditions] Resolved: 8 11-17-2017 Episodic Other gastrointestinal disorders (18 sources) Heartburn; Translations: [Heartburn] Onset: 3 12-02-2022 Episodic Other injuries and conditions due to external causes (6 sources) Motion sickness; Translations: [Motion sickness, initial encounter] Onset: 3 12-24-2022 Episodic Other nervous system disorders (5 sources) Tremor; Translations: [Tremor, unspecified] Onset: 4 08-07-2023 Episodic Other non-traumatic joint disorders (20 sources) Joint pain; Translations: [Pain in unspecified joint] Onset: 3 12-07-2018 Episodic Other non-traumatic joint disorders (15 sources) Ankle pain; Translations: [Pain in unspecified ankle and joints of unspecified foot] Onset: 3 12-02-2022 Episodic Other screening for suspected conditions (not mental disorders or infectious disease) (20 sources) Raised prostate specific antigen; Translations: [Elevated prostate specific antigen [PSA]] Onset: 3 12-16-2016 Episodic Other upper respiratory disease (20 sources) Bleeding from nose; Translations: [Epistaxis] Onset: 3 07-29-2018 Episodic Comment on above: h/o weroque -- s/p b alloon by Dr Orozco- and he was instructed to call them for instructions-- he will try nasal spry ( prob degocn) to see if holep coughetc again Other upper respiratory disease (5 sources) Nasal obstruction; Translations: [Other specified disorders of nose and nasal sinuses] Onset: 4 08-07-2023 Episodic Other upper respiratory disease (5 sources) Perforation of nasal septum; Translations: [Other specified disorders of nose and nasal sinuses] Onset: 4 08-07-2023 Episodic Other upper respiratory infections (20 sources) Viral upper respiratory tract infection; Translations: [Acute upper respiratory infection, unspecified] Onset: 3 02-12-2022 Episodic Residual codes; unclassified (12 sources) Past history of procedure; Translations: [Other specified postprocedural states] Onset: 6 Resolved: 6 01-30-2016 Episodic Residual codes; unclassified (12 sources) Family history of malignant neoplasm of gastrointestinal tract; Translations: [Family history of malignant neoplasm of digestive organs] Resolved: 9 06-25-2018 Episodic Residual codes; unclassified (13 sources) Family history of prostate cancer; Translations: [Family history of malignant neoplasm of prostate] Onset: 3 Resolved: 9 06-25-2018 Episodic Residual codes; unclassified (1 source) Patient care statuses; Translations: [Other specified health status] Onset: 6 Resolved: 7 03-10-2017 Episodic Residual codes; unclassified (15 sources) History of cardiac catheterization; Translations: [Other specified postprocedural states] Onset: 9 02-12-2022 Episodic Comment on above: Normal coronary sosa carly; Normal LV size, wall motion,and systolic function; Normal Left Ventricular systolic function; LVEF: by LV gram 60 %; Normal Left Ventricular End Diastolic Pressure Residual codes; unclassified (5 sources) Pain; Translations: [Pain, unspecified] Onset: 3 08-07-2023 Episodic Spondylosis; intervertebral disc disorders; other back problems (20 sources) Backache; Translations: [Dorsalgia, unspecified] Onset: 7 Resolved: 7 03-10-2017 Episodic Unclassified (2 sources) Non-smoker; Translations: [Non-smoker] 08-12-2018 Unclassified (1 source) Unclassified (11 sources) Anticoagulant effect; Translations: [Anticoagulated on Coumadin] Resolved: 6 03-04-2016 Unclassified (11 sources) History of repair of hip joint; Translations: [Status post right hip replacement] Onset: 6 Resolved: 0 07-09-2019 Unclassified (11 sources) Patient care statuses; Translations: [Health alf, active care coordination] Onset: 6 Resolved: 7 03-10-2017 Viral infection (20 sources) Disease caused by 2019-nCoV; Translations: [COVID-19] Onset: 2 Episodic Results Test Name Value Interpretation Reference Range Facility 25-hydroxyvitamin D3 [Mass/V ol]on 11-30-2024 Interpretation and review of laboratory results Normal [facility] Target concentration : 30 - 40 ng/mL; toxicity seen at concentrations >100 ng/mL Less than 20 ng/mL: Indicative of Vit D deficiency Test performed by [facility], measuring Total Vitamin D, not individual fractions. [facility] 30on 11-30-2024 30 Problem: Knowledge Deficit Goal: Patient/family/caregi reyes demonstrates understanding of disease process, treatment plan, medications, and discharge instructions Outcome: Adequate for Discharge Problem: Neurological Deficit Goal: Neurological status is stable or improving Outcome: Adequate for Discharge Problem: Activity Intolerance/Impaired Mobility Goal: Mobility/activity is maintained at optimum level for patient Outcome: Adequate for Discharge Problem: Potential for Aspiration Goal: Non-ventilated patient's risk of aspiration is minimized Outcome: Adequate for Discharge Goal: Ventilated patient's risk of aspiration is minimized Outcome: Adequate for Discharge Problem: Nutrition Goal: Nutritional status is improving Outcome: Adequate for Discharge Normal [facility] 30 Problem: Knowledge Deficit Goal: Patient/family/caregi reyes demonstrates understanding of disease process, treatment plan, medications, and discharge instructions Outcome: Progressing Problem: Neurological Deficit Goal: Neurological status is stable or improving Outcome: Progressing Problem: Activity Intolerance/Impaired Mobility Goal: Mobility/activity is maintained at optimum level for patient Outcome: Progressing Problem: Potential for Aspiration Goal: Non-ventilated patient's risk of aspiration is minimized Outcome: Progressing Goal: Ventilated patient's risk of aspiration is minimized Outcome: Progressing Normal [facility] [id number] 11-30-2024 [id number] Patient Choice Patient Name: FRANKLIN BURTON Date of : 1945 All Providers Sent Referral Name: Jaswinder Padilla (Formerly [facility]) Address: [address] [place] [address] Name: [facility] Phone: [phone] Address: [address] [place] [address] [address] [place] [address] Name: [facility] Phone: [phone] Address: [address] [place], [place] [address] [address] Name: [facility] Phone: [phone] Address: [address] [place] [address] Name: [facility] Address: [address] [place] [address] Name: [facility] Address: [address] [place] [address] Name: [facility] Address: [address] [place] [address] Name: [facility] (formerly known as [facility]) Phone: [phone] Address: [address] [facility] [address] [place] [address] Name: [facility] Address: [address] [facility] [address] [place] [address] Name: [facility] Phone: [phone] Address: [address] [place] [address] Name: [facility] Address: [address] [facility] [address] [place] [address] Name: [facility] [place] [facility] Address: [address] [place] [address] Name: [facility] Address: [address] [facility] [address] [place] [address] Name: [facility] Address: [address] [facility] [address] [place] [address] Name: [facility] Phone: [phone] Address: [address] [place] [address] Name: [facility] Phone: [phone] Address: [address] [facility] [address] [place] [address] Normal [facility] Bacteria identified Cx Nom ( Bld)on 11-30-2024 Interpretation and review of laboratory results Normal [facility] Blood Collection Site: Right Antecubital [facility] Interpretation and review of laboratory results Normal [facility] Blood Collection Site: Left Forearm [facility] CBC (HEMOGRAM)on 11-30-2024 Erythrocyte distribution width (RBC) [Ratio] 13.0 % Normal 11.5-15.0 [facility] Comment on above: Performed By: #### L [id number] ####Chief Gauger: LYNDSEY NICOLE ([id number])[facility])[address] [place] [address] Hematocrit (Bld) [Volume fraction] 36.0 % Low 40.0-52.0 [facility] Comment on above: Performed By: #### L [id number] ####Chief Gauger: LYNDSEY NICOLE ([id number])[facility])[address] [place] [address] Hemoglobin (Bld) [Mass/Vol] 12.0 g/dL Low 13.0-18.0 [facility] Comment on above: Performed By: #### L [id number] ####Chief Gauger: LYNDSEY NICOLE ([id number])[facility])[address] [place] [address] MCH (RBC) [Entitic mass] 30.8 pg Normal 26.0-34.0 [facility] Comment on above: Performed By: #### L [id number] ####Chief Gauger: LYNDSEY NICOLE ([id number])[facility])[address] [place] [address] MCHC 33.3 % Normal 30.5-36.0 [facility] Comment on above: Performed By: #### L [id number] ####Chief Gauger: LYNDSEY NICOLE ([id number])[facility] ([facility])[address] [place] [address] MCV (RBC) [Entitic vol] 92.5 fL Normal 77.0-99.0 [facility] Comment on above: Performed By: #### L [id number] ####Chief Gauger: LYNDSEY NICOLE ([id number])[facility])[address] [place] [address] Platelet mean volume (Bld) [Entitic vol] 9.5 fL Normal 9.0-12.7 [facility] Comment on above: Performed By: #### L [id number] ####Chief Gauger: LYNDSEY NICOLE ([id number])[facility])[address] [place] [address] Platelets (Bld) [#/Vol] 152 10*3/uL Normal 140-440 [facility] Comment on above: Performed By: #### L [id number] ####Chief Gauger: LYNDSEY NICOLE ([phone])[address] RBC (Bld) [#/Vol] 3.89 10*6/uL Low 4.40-5.90 [facility] Comment on above: Performed By: #### L [id number] ####Chief Gauger: LYNDSEY NICOLE ([id number])[facility] ([facility])[address] [place] [address] WBC (Bld) [#/Vol] 5.2 10*3/uL Normal 3.6-10.7 [facility] Comment on above: Performed By: #### L [id number] ####Chief Gauger: LYNDSEY NICOLE ([id number])[address] CBC panel Auto (Bld)on 11-30 Erythrocyte distribution width (RBC) [Ratio] 13 % 11.5 - 15.0 % [facility] Hematocrit (Bld) [Volume fraction] 36 % Low 40.0 - 52.0 % [facility] Hemoglobin (Bld) [Mass/Vol] 12 g/dL Low 13.0 - 18.0 g/dL [facility] Interpretation and review of laboratory results Abnormal [facility] MCH (RBC) [Entitic mass] 30.8 pg 26.0 - 34.0 pg [facility] MCHC (RBC) [Mass/Vol] 33.3 % 30.5 - 36.0 % [facility] MCV (RBC) [Entitic vol] 92.5 fL 77.0 - 99.0 fL [facility] Platelet mean volume (Bld) [Entitic vol] 9.5 fL 9.0 - 12.7 fL [facility] Platelets (Bld) [#/Vol] 152 10*3/uL 140 - 440 10*3/uL [facility] RBC (Bld) [#/Vol] 3.89 10*6/uL Low 4.40 - 5.9 0 10*6/uL [facility] WBC (Bld) [#/Vol] 5.2 10*3/uL 3.6 - 10.7 10*3/uL [facility] COMPREHENSIVE METABOLIC PANE Jase 11-30-2024 Albumin [Mass/Vol] 3.4 g/dL Normal 3.4-4.8 [facility] Comment on above: Performed By: #### L AB108, [id number], [id number], LAB17 ####Chief Gauger: LYNDSEY NICOLE ([id number])[facility] ([facility])[address] [place] [address] ALP [Catalytic activity/Vol] 105 U/L Normal 40-150 [facility] Comment on above: Performed By: #### L AB108, [id number], [id number], LAB17 ####Chief Gauger: LYNDSEY NICOLE ([id number])[facility] ([facility])[address] [place] [address] ALT [Catalytic activity/Vol] 28 U/L Normal <40 [facility] Comment on above: Performed By: #### L AB108, [id number], [id number], LAB17 ####Chief Gauger: LYNDSEY NICOLE ([id number])[facility] ([facility])[address] [place] [address] Anion gap [Moles/Vol] 5 mmol/L Normal 3-13 [facility] Comment on above: Performed By: #### L AB108, [id number], [id number], LAB17 ####Chief Gauger: LYNDSEY NICOLE ([id number])[facility] ([facility])[address] [place] [address] AST [Catalytic activity/Vol] 33 U/L Normal <34 [facility] Comment on above: Performed By: #### L AB108, [id number], [id number], LAB17 ####Chief Gauger: LYNDSEY NICOLE ([id number])[facility])[address] [place] [address] Bilirubin [Mass/Vol] 0.9 mg/dL Normal <1.2 [facility] Comment on above: Performed By: #### L AB108, [id number], [id number], LAB17 ####Chief Gauger: LYNDSEY NICOLE ([id number])[facility])[address] [place] [address] Calcium [Mass/Vol] 9.5 mg/dL Normal 8.8-10.0 [facility] Comment on above: Performed By: #### L AB108, [id number], ANQ897, LAB17 ####Chief Gauger: LYNDSEY NICOLE ([id number])[facility] [place] [address] [place] Chloride [Moles/Vol] 105 mmol/L Normal 98-107 [facility] Comment on above: Performed By: #### L AB108, [id number], JGS291, LAB17 ####Chief Gauger: LYNDSEY NICOLE ([id number])[facility] [place] [address] CO2 [Moles/Vol] 25 mmol/L Normal 23-31 [facility] Comment on above: Performed By: #### L AB108, [id number], [id number], LAB17 ####Chief Gauger: LYNDSEY NICOLE ([id number])[facility] [place] [address] Creatinine [Mass/Vol] 2.91 mg/dL High 0.72-1.25 [facility] Comment on above: Performed By: #### L AB108, JAN751, ISA225, LAB17 ####Chief Gauger: LYNDSEY NICOLE ([id number])[facility] ([facility])[address] [place] [address] [place] GLOMERULAR FILTRATION RATE ML/MIN/1.73 SQ M.PREDICTED 21.4 mL/min/1.73m*2 Low >60.0 [facility] Comment on above: Result Comment: Calc ulation based on the Chronic Kidney Disease Epidemiology Collaboration (CKD-EPI) equation refit without adjustment for race Performed By: #### L AB108, SSF074, XQD246, LAB17 ####Chief Gauger: LYNDSEY NICOLE ([id number])[facility] [place] [address] [place] Glucose [Mass/Vol] 108 mg/dL Normal 82-115 [facility] Comment on above: Performed By: #### L AB108, [id number], ILO838, LAB17 ####Chief Gauger: LYNDSEY NICOLE ([id number])[facility])[address] [place] [address] Potassium [Moles/Vol] 4.0 mmol/L Normal 3.5-5.1 [facility] Comment on above: Result Comment: [facility] potassium values may be up to 0.5 mmol/L lower than serum values. Performed By: #### L AB108, [id number], RYD538, LAB17 ####Chief Gauger: LYNDSEY NICOLE ([id number])[facility] ([facility])[address] [place] [address] Protein [Mass/Vol] 6.6 g/dL Normal 6.4-8.3 [facility] Comment on above: Performed By: #### L AB108, [id number], [id number], LAB17 ####Chief Gauger: LYNDSEY NICOLE ([id number])[facility] ([facility])[address] [place] [address] Sodium [Moles/Vol] 135 mmol/L Low 136-145 [facility] Comment on above: Performed By: #### L AB108, [id number], [id number], LAB17 ####Chief Gauger: LYNDSEY NICOLE ([phone])[facility] ([facility])[address] [place] [address] Urea nitrogen [Mass/Vol] 14 mg/dL Normal 9-23 [facility] Comment on above: Performed By: #### L AB108, [id number], [id number], LAB17 ####Chief Gauger: LYNDSEY NICOLE ([phone])[facility] ([facility])[address] [place] [address] Comprehensive metabolic 1998 panelOrdered By: Miah Mathews on 11-30-2024 Albumin [Mass/Vol] 3.4 g/dL 3.4 - 4.8 g/dL [facility] ALP [Catalytic activity/Vol] 105 U/L 40 - 150 U/L [facility] ALT [Catalytic activity/Vol] 28 U/L NINF - 40 U/L [facility] Anion gap [Moles/Vol] 5 mmol/L 3 - 13 mmol/L [facility] AST [Catalytic activity/Vol] 33 [facility] Bilirubin [Mass/Vol] 0.9 mg/dL NINF - 1.2 mg/dL [facility] Calcium [Mass/Vol] 9.5 mg/dL 8.8 - 10. 0 mg/dL [facility] Chloride [Moles/Vol] 105 mmol/L 98 - 10 7 mmol/L [facility] CO2 [Moles/Vol] 25 mmol/L 23 - 31 mmol/L [facility] Creatinine [Mass/Vol] 2.91 mg/dL High 0.72 - 1.25 mg/dL [facility] GFR/1.73 sq M.predicted (S/P/Bld) [Vol rate/Area] 21.4 mL/min Low - PINF [facility] Comment on above: Calculation based on the Chronic Kidney Disease Epidemiology Collaboration (CKD-EPI) equation refit without adjustment for race Glucose [Mass/Vol] 108 mg/dL 82 - 115 mg/dL [facility] Interpretation and review of laboratory results Abnormal [facility] Potassium [Moles/Vol] 4 mmol/L 3.5 - 5.1 mmol/L [facility] Comment on above: Plasma potassium carson ues may be up to 0.5 mmol/L lower than serum values. Protein [Mass/Vol] 6.6 g/dL 6.4 - 8.3 g/dL [facility] Sodium [Moles/Vol] 135 mmol/L Low 136 - 145 mmol/L [facility] Urea nitrogen [Mass/Vol] 14 mg/dL 9 - 23 mg/dL [facility] Laboratory - Chemistry and C hemistry - challengeon 11-30-2024 25-hydroxyvitamin D3 [Mass/Vol] 49 ng/mL 20 - 50 ng/mL [facility] Glucose [Mass/Vol] 106 mg/dL High 70 - 100 mg/dL [facility] Parathyrin.intact [Mass/Vol] 202.5 pg/mL High 22.6 - 120.3 pg/mL [facility] Magnesium [Mass/Vol] 2 mg/dL 1.6 - 2 .6 mg/dL [facility] Laboratory - Microbiology an d Antimicrobial susceptibilityon 11-30-2024 Bacteria identified Cx Nom (Bld) No growth at 5 days [facility] Bacteria identified Cx Nom (Bld) No growth at 5 days [facility] MAGNESIUMon 11-30-2024 Magnesium [Mass/Vol] 2.0 mg/dL Normal 1.6-2.6 [facility] Comment on above: Result Comment: KP Martínez COMMENTS: Higher values can be expected in females during menses. Performed By: #### L AB108, [id number], [id number], LAB17 ####Chief Gauger: LYNDSEY NICOLE ([phone])[facility] ([facility])[address] [place] [address] Magnesium [Mass/Vol]on 11-30 Interpretation and review of laboratory results Normal [facility] Higher values can be expected in females during menses. [facility] No Panel Informationon 11-30 Interpretation and review of laboratory results Abnormal [facility] Performed by: [place] [address] CLIA ID: [id number] [facility] PHOSPHORUSon 11-30-2024 Phosphate [Mass/Vol] 2.1 mg/dL Low 2.3-4.7 [facility] Comment on above: Performed By: #### L AB108, [id number], [id number], LAB17 ####Chief Gauger: LYNDSEY NICOLE ([phone])[facility])[address] [place] [address] PTH INTACTon 11-30-2024 PTH, INTACT 202.5 pg/mL High 22.6-120.3 [facility] Comment on above: Performed By: #### L AB108, [id number], JYM019, LAB17 ####Chief Gauger: LYNDSEY NICOLE ([phone])[facility])[address] [place] [address] Parathyrin.intact [Mass/Vol] on 11-30-2024 Interpretation and review of laboratory results Abnormal [facility] Phosphate [Moles/Vol]on 11-16 Interpretation and review of laboratory results Abnormal [facility] Phosphate [Mass/Vol] 2.1 mg/dL Low 2.3 - 4 .7 mg/dL [facility] [employer] Progress Noteon 11-30-2024 Progress Note Speech-Language Pathology SPEECH LANGUAGE PATHOLOGY [facility] Dysphagia Treatment Note Patient Name: Franklin Burton Evaluation Date: 11/30/2024 Date of : 1945 Admission Date: 11/25/2024 5:45 AM Age: 79 y.o. Room[facility]: [facility] A Subjective Patient was awake and cooperative. Decreased appetite reported. Current Diet: Dietary Orders (From admission, onward) Start Ordered 11/29/24 1252 Adult diet Dysphagia - Minced and Moist Diet effective now Comments: Pureed/thin with 1:1 assist Question: Diet type Answer: Dysphagia - Minced and Moist 11/29/24 1251 11/26/24 1536 Supplement:Lunch, Dinner; Vanilla Magic Cup Until discontinued Question Answer Comment Frequency Lunch Frequency Dinner Select supplement: Vanilla Magic Cup 11/26/24 1536 Aspiration Precautions: - Upright positioning for all PO intake - Slow rate of intake - Small bites/sips - Supervision with PO - Alternate solid and liquids Oxygen: Oxygen Therapy: None (Room air) Pain: Pt denies any current pain. Does report mouth pain when consuming harder foods. PPE Worn: gloves Objective & Assessment Dysphagia Treatment # of Activities: 1 Dysphagia Activity 1: assess diet tolerance and potential for advancement Patient was presented with minced/moist solids and thin liquid via straw. Also given a very small amount of soft solids. Mastication was prolonged - especially with a bite sized piece of solids. Suspect same is due to recently pulled lower teeth. Oral clearance was achieved when given extra time. No s/s of aspiration with any PO presented. Tolerating current diet, not appropriate for diet advancement until gums heal. Plan & Recommendations Recommend Minced and moist solids and Thin liquids and meds as tolerated and the following precautions: - Upright positioning for all PO intake - Slow rate of intake - Small bites/sips - Alternate solid and liquids Patient has achieved all acute care [employer] goals. Speech therapy to sign off at this time. D/C Recommendations: No follow up therapy recommended post discharge Education Education Given: swallowing strategies, diet recommendations Given To: patient and spouse and daughter? Response: verbalizes understanding Goals Patient Stated Goal: to order soup for lunch Encounter Problems Encounter Problems (Resolved) Swallowing Patient will tolerate the least restrictive diet consistency to allow for safe consumption of daily meals (Completed) Start: 11/25/24 Expected End: 12/09/24 Resolved: 11/30/24 Patient will demonstrate safe swallowing Intervention/techniqu es (Completed) Start: 11/25/24 Expected End: 12/09/24 Resolved: 11/30/24 Patient will participate in repeat clinical dysphagia evaluation (Completed) Start: 11/25/24 Expected End: 12/09/24 Resolved: 11/26/24 Therapy Time [employer] Individual Minutes Time In: 1020 Time Out: 1030 Minutes: 10 Yana Pleitez MA, CCC/[employer] Normal [facility] Progress Note [facility] Geriatric Medicine Inpatient Consult Service Admission Date: 11/25/2024 Assessment Principal Problem: Stroke-like symptoms Active Problems: Stroke-like symptom Plan Acute Metabolic Encephalopathy --Improved, likely at cognitive baseline --Etiology likely multifactorial related to medication effect, polypharmacy, hospital environment. Risk factors include age, cognitive deficits. --Evaluated by neurology. EEG with no observed seizures. 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 Recommend to wean as able. Hold for sedation. Do not anticipate needing at discharge --[place] PRN Seroquel and Haldol for ONLY if danger to self/others/treatment --If antipsychotics are necessary for agitation, recommend seroquel 12.5 mg BID prn agitation (first line) and haldol 0.5 mg IM q6hr prn agitation (2nd line) ---Would avoid benzodiazepines in this older adult patient as this drug class increases risk of falls and confusion along with other potentially negative side effects which would outweigh any theoretical benefit. --Continue scheduled melatonin at HS --Monitor for constipation/urinary retention - last BM 11/30 --Possible medication contributions: Agree with continuing gabapentin due to risk for withdrawal (see below) Recommend to avoid hydroxyzine due to anticholinergic side effects, Cognitive deficits --+ history of cognitive decline at home. Unclear history of decline in ADL's and IADL's --TSH WNL, B12 WNL --Head imaging - MRI brain on 11/27 showing chronic ischemic and atrophic changes --Recommend outpatient follow up at [facility] ([facility]) for more in depth cognitive evaluation when in usual state of health. Discussed with family again today. Information placed on discharge paperwork. Polypharmacy Medications reviewed with geriatric pharmacist with recommendations as below. Discussed recommendations with patient, , and daughter at bedside today with geriatric pharmacist. --Recommend to stop pregabalin at discharge, plan to continue gabapentin at increased dose nightly to reduce risk for withdrawal (see below) --Continue gabapentin 300 mg nightly at discharge --Recommend prescripting Narcan at discharge as he is prescribed Percocet outpatient --Continue home Percocet 5-325 mg PRN BID --Recommend scheduled acetaminophen 500 mg BID for pain control --Ensure referral to pain management is placed --Recommend increased family supervision for medication management and administration Debility --Related to acute illness, deconditioning, diabetes, RLS, neuropathy --Continue PT/OT as able while inpatient --Anticipate d/c to SNF for ongoing daily PT/OT per PT recommendations. Patient and family plan for patient to return home with [facility] at discharge -- vitamin D level pending Neuropathy RLS -Denies symptoms of RLS at time of visit. Pain well controlled at time time. -Agree with continuing gabapentin 300 mg nighly to avoid withdrawal. -Agree with renally dosing given his diagnosis of end-stage renal disease on hemodialysis. Plan discussed with Dr. Christianson, geriatric pharmacist, and patient's and daughter at bedside. Addendum: Call placed to patient's daughter Leonarda. Recommend not to continue scheduled Seroquel at discharge as this medication was used acutely during hospitalization for management of agitation. Loenarda verbalized understanding. Discussed with Dr. Christianson. Follow-up: Follow up at [facility] in 4 weeks Subjective Chief Complaint: stroke-like symptoms Geriatrics consulted for "rec confusion" HPI- The patient is known to me. 79 y.o. year-old male admitted to acute care from outside facility for altered mental stays. Diagnosed with acute metabolic encephalopathy. Admitted for neurological evaluation however complicated by agitation. Ammonia, vitamin B12 WNL. Patient transferred to ICU for completion management of agitation to complete EEG and MRI brain. Transferred from ICU 11/28. Hospital stay complicated by delirium. Interval History: Remains on 3W. No documented overnight events. Labs reviewed with sodium 135, BUN 14, creatinine 2.91, hemoglobin 12.0. Has not received PRN medications. Completed HD session yesterday. Plan for discharge home with [facility]. Patient awake and alert in bed with daughter and at bedside. Conversation held regarding recommendations for patient's medications at time of discharge as mentioned above. Patient reports his leg and back pain sometimes wakes him at night and he may take extra doses of medication (he states Tylenol or Percocet) to help with pain. Long conversation regarding only taking medications how he i (more content not included)... Normal [facility] VITAMIN D DEFICIENCY SCREENI NG (VIT D 25)on 11-30-2024 VIT D 25-OH, TOTAL 49 ng/mL Normal See comment [facility] Comment on above: Result Comment: KP Martínez COMMENTS: Target concentration: 30 - 40 ng/mL; toxicity seen at concentrations >100 ng/mL Less than 20 ng/mL: Indicative of Vit D deficiency Test performed by [employer], measuring Total Vitamin D, not individual fractions. Performed By: #### L [id number] ####Chief Gauger: LYNDSEY NICOLE ([phone])[facility] ([address] 3011-29-2024 30 Problem: Knowledge Deficit Goal: Patient/family/caregi reyes demonstrates understanding of disease process, treatment plan, medications, and discharge instructions Outcome: Progressing Problem: Neurological Deficit Goal: Neurological status is stable or improving Outcome: Progressing Problem: Activity Intolerance/Impaired Mobility Goal: Mobility/activity is maintained at optimum level for patient Outcome: Progressing Problem: Potential for Aspiration Goal: Non-ventilated patient's risk of aspiration is minimized Outcome: Progressing Goal: Ventilated patient's risk of aspiration is minimized Outcome: Progressing Problem: Nutrition Goal: Nutritional status is improving Outcome: Progressing Normal [facility] [id number] 11-29-2024 [phone] [facility] is agency of choice. [facility] unable to service as patient is out of service area. Educated patient and daughter Leonarda on Home Care and services available. Patient is agreeable to receiving home care services at this time. Patient was given choice of home care agencies available in the area and is agreeable to having referrals made with agencies that staff the patients service location. Referrals have been sent via [employer]. Liaison to discuss available agencies to accept case with patient upon receiving responses. [facility] [phone] Planning Intern following case for Discharge Needs. [facility] [phone] 11-29-2024 [phone] Met with patient, Kaley and daughter Leonarda discussed patient would like a new PCP did not have a PCP in mind. Scheduled with [facility] in [place]. Plan of Treatment Plan of Treatment - Upcoming Encounters Upcoming Encounters Date Type Department Care Team (Latest Contact Info) Description 01/13/2025 11:00 AM EDT Office Visit Family Medicine [place] [address] [place] [address], [place] [phone] Alycia Jennings MD [address], [place] [phone] Normal [facility] CBC (HEMOGRAM)on 11-29-2024 Erythrocyte distribution width (RBC) [Ratio] 12.9 % Normal 11.5-15.0 [facility] Comment on above: Performed By: #### L [id number] ####Chief Gauger: LYNDSEY NICOLE ([phone])[address] Hematocrit (Bld) [Volume fraction] 32.1 % Low 40.0-52.0 [facility] Comment on above: Performed By: #### L AB294 ####Chief Gauger: LYNDSEY NICOLE ([phone])[address] Hemoglobin (Bld) [Mass/Vol] 10.7 g/dL Low 13.0-18.0 [facility] Comment on above: Performed By: #### L [id number] ####Chief Gauger: LYNDSEY NICOLE ([phone])[address] [place] [address] [place] MCH (RBC) [Entitic mass] 30.9 pg Normal 26.0-34.0 [facility] Comment on above: Performed By: #### L AB294 ####Chief Gauger: LYNDSEY NICOLE ([phone])[facility] ([facility])[address] [place] [address] MCHC 33.3 % Normal 30.5-36.0 [facility] Comment on above: Performed By: #### L AB294 ####Chief Gauger: LYNDSEY NICOLE ([phone])[facility] ([facility])[address] [place] [address] MCV (RBC) [Entitic vol] 92.8 fL Normal 77.0-99.0 [facility] Comment on above: Performed By: #### L [id number] ####Chief Gauger: LYNDSEY NICOLE ([phone])[facility] ([facility])[address] [place] [address] Platelet mean volume (Bld) [Entitic vol] 10.1 fL Normal 9.0-12.7 [facility] Comment on above: Performed By: #### L AB294 ####Chief Gauger: LYNDSEY NICOLE ([phone])[facility] ([facility])[address] [place] [address] Platelets (Bld) [#/Vol] 123 10*3/uL Low 140-440 [facility] Comment on above: Performed By: #### L AB294 ####Chief Gauger: LYNDSEY NICOLE ([phone])[facility] ([facility])[address] [place] [address] RBC (Bld) [#/Vol] 3.46 10*6/uL Low 4.40-5.90 [facility] Comment on above: Performed By: #### L AB294 ####Chief Gauger: LYNDSEY NICOLE ([phone])[facility] ([facility])[address] [place] [address] WBC (Bld) [#/Vol] 4.2 10*3/uL Normal 3.6-10.7 [facility] Comment on above: Performed By: #### L AB294 ####Chief Gauger: LYNDSEY NICOLE ([phone])[facility] ([facility])[address] [place] [address] CBC panel Auto (Bld)on 11-29 Erythrocyte distribution width (RBC) [Ratio] 12.9 % 11.5 - 15.0 % [facility] Hematocrit (Bld) [Volume fraction] 32.1 % Low 40.0 - 52.0 % [facility] Hemoglobin (Bld) [Mass/Vol] 10.7 g/dL Low 13.0 - 18.0 g/dL [facility] Interpretation and review of laboratory results Abnormal [facility] MCH (RBC) [Entitic mass] 30.9 pg 26.0 - 34.0 pg [facility] MCHC (RBC) [Mass/Vol] 33.3 % 30.5 - 36.0 % [facility] MCV (RBC) [Entitic vol] 92.8 fL 77.0 - 99.0 fL [facility] Platelet mean volume (Bld) [Entitic vol] 10.1 fL 9.0 - 12.7 fL [facility] Platelets (Bld) [#/Vol] 123 10*3/uL Low 140 - 440 10*3/uL [facility] RBC (Bld) [#/Vol] 3.46 10*6/uL Low 4.40 - 5.9 0 10*6/uL [facility] WBC (Bld) [#/Vol] 4.2 10*3/uL 3.6 - 10.7 10*3/uL [facility] COMPREHENSIVE METABOLIC PANE Jase 11-29-2024 Albumin [Mass/Vol] 3.2 g/dL Low 3.4-4.8 [facility] Comment on above: Performed By: #### L AB129, [id number], PCI248, LAB17 ####Chief Gauger: LYNDSEY NICOLE ([phone])[facility] ([facility])[address] [place] [address] ALP [Catalytic activity/Vol] 91 U/L Normal 40-150 [facility] Comment on above: Performed By: #### L AB129, [id number], ZGE046, LAB17 ####Chief Gauger: LYNDSEY NICOLE ([phone])[facility] ([facility])[address] [place] [address] ALT [Catalytic activity/Vol] 25 U/L Normal <40 [facility] Comment on above: Performed By: #### L AB129, SIP857, VOH706, LAB17 ####Chief Gauger: LYNDSEY NICOLE ([phone])[facility] ([facility])[address] [place] [address] Anion gap [Moles/Vol] 7 mmol/L Normal 3-13 [facility] Comment on above: Performed By: #### L AB129, [id number], EGR596, LAB17 ####Chief Gauger: LYNDSEY NICOLE ([phone])[facility] ([facility])[address] [place] [address] AST [Catalytic activity/Vol] 35 U/L High <34 [facility] Comment on above: Performed By: #### L AB129, [id number], [id number], LAB17 ####Chief Gauger: LYNDSEY INCOLE ([phone])[facility] ([facility])[address] [place] [address] Bilirubin [Mass/Vol] 0.9 mg/dL Normal <1.2 [facility] Comment on above: Performed By: #### L AB129, [id number], RNC515, LAB17 ####Chief Gauger: LYNDSEY NICOLE ([phone])[facility] ([facility])[address] [place] [address] Calcium [Mass/Vol] 8.8 mg/dL Normal 8.8-10.0 [facility] Comment on above: Performed By: #### L AB129, [id number], QIL282, LAB17 ####Chief Gauger: LYNDSEY NICOLE ([phone])[facility])[address] [place] [address] Chloride [Moles/Vol] 106 mmol/L Normal 98-107 [facility] Comment on above: Performed By: #### L AB129, [id number], GBY987, LAB17 ####Chief Gauger: LYNDSEY NICOLE ([id number])[facility])[address] [place] [address] CO2 [Moles/Vol] 21 mmol/L Low 23-31 [facility] Comment on above: Performed By: #### L AB129, BFF134, XCH481, LAB17 ####Chief Gauger: LYNDSEY NICOLE ([id number])[facility])[address] [place] [address] Creatinine [Mass/Vol] 4.03 mg/dL High 0.72-1.25 [facility] Comment on above: Performed By: #### L AB129, YHR518, FEJ113, LAB17 ####Chief Gauger: LYNDSEY NICOLE ([phone])[facility])[address] [place] [address] GLOMERULAR FILTRATION RATE ML/MIN/1.73 SQ M.PREDICTED 14.5 mL/min/1.73m*2 Low >60.0 [facility] Comment on above: Result Comment: Calc ulation based on the Chronic Kidney Disease Epidemiology Collaboration (CKD-EPI) equation refit without adjustment for race Performed By: #### L AB129, [id number], YGH831, LAB17 ####Chief Gauger: LYNDSEY NICOLE ([phone])[facility])[address] [place] [address] Glucose [Mass/Vol] 94 mg/dL Normal 82-115 [facility] Comment on above: Performed By: #### L AB129, [id number], RHM489, LAB17 ####Chief Gauger: LYNDSEY NICOLE ([phone])[address] Potassium [Moles/Vol] 3.8 mmol/L Normal 3.5-5.1 [facility] Comment on above: Result Comment: [facility] potassium values may be up to 0.5 mmol/L lower than serum values. Performed By: #### L AB129, NHN217, BZT866, LAB17 ####Chief Gauger: LYNDSEY NICOLE ([id number])[facility] ([facility])[address] [place] [address] Protein [Mass/Vol] 6.1 g/dL Low 6.4-8.3 [facility] Comment on above: Performed By: #### L AB129, TDN801, ZDI165, LAB17 ####Chief Gauger: LYNDSEY NICOLE ([id number])[facility] ([facility])[address] [place] [address] Sodium [Moles/Vol] 134 mmol/L Low 136-145 [facility] Comment on above: Performed By: #### L AB129, VWV999, TMM664, LAB17 ####Chief Gauger: LYNDSEY NICOLE ([id number])[facility] ([facility])[address] [place] [address] Urea nitrogen [Mass/Vol] 31 mg/dL High 9-23 [facility] Comment on above: Performed By: #### L AB129, ATI183, URC279, LAB17 ####Chief Gauger: LYNDSEY NICOLE ([id number])[facility] [place] [address] Comprehensive metabolic 1998 panelon 11-29-2024 Albumin [Mass/Vol] 3.2 g/dL Low 3.4 - 4.8 g/dL [facility] ALP [Catalytic activity/Vol] 91 U/L 40 - 150 U/L [facility] ALT [Catalytic activity/Vol] 25 U/L NINF - 40 U/L [facility] Anion gap [Moles/Vol] 7 mmol/L 3 - 13 mmol/L [facility] AST [Catalytic activity/Vol] 35 U/L High NINF - 34 U/L [facility] Bilirubin [Mass/Vol] 0.9 mg/dL NINF - 1.2 mg/dL [facility] Calcium [Mass/Vol] 8.8 mg/dL 8.8 - 10. 0 mg/dL [facility] Chloride [Moles/Vol] 106 mmol/L 98 - 10 7 mmol/L [facility] CO2 [Moles/Vol] 21 mmol/L Low 23 - 31 mmol/L [facility] Creatinine [Mass/Vol] 4.03 mg/dL High 0.72 - 1.25 mg/dL [facility] [employer] GFR/1.73 sq M.predicted (S/P/Bld) [Vol rate/Area] 14.5 mL/min Low - PINF [facility] Comment on above: Calculation based on the Chronic Kidney Disease Epidemiology Collaboration (CKD-EPI) equation refit without adjustment for race Glucose [Mass/Vol] 94 mg/dL 82 - 115 mg/dL [facility] Interpretation and review of laboratory results Abnormal [facility] [employer] Potassium [Moles/Vol] 3.8 mmol/L 3.5 - 5.1 mmol/L [facility] Comment on above: Plasma potassium carson ues may be up to 0.5 mmol/L lower than serum values. Protein [Mass/Vol] 6.1 g/dL Low 6.4 - 8.3 g/dL [facility] [employer] Sodium [Moles/Vol] 134 mmol/L Low 136 - 145 mmol/L [facility] Urea nitrogen [Mass/Vol] 31 mg/dL High 9 - 23 mg/dL [facility] ED MED ADMINISTRATION DETAIL on 11-29-2024 ED MED ADMINISTRATION DETAIL University Archivist Medication Administration Record [address] [place] [address] [id number] 11/24/2024 Patient: FRANKLIN BURTON Sex: Male : 1945 Age: 79y MEASUREMENTS: Wt: 99.8 kg, Ht/Jhon: 66.0 in, BMI: 35.51 ALLERGIES: aspirin Medication Ordered Medication Administration Date/Time LORazepam 20:43 07 LORazepam (Ativan) IVP 0.5 mg given via Site# 1. Given (Ativan) IVP 0.5 mg Allergies verified and confirmed 5 rights. IV patency established. IV 20:43 11/24/2024 (NOW x1) site checked: no pain, redness, or swelling. IV flushed thoroughly Addie Montano R.N. pre-medication administration. IVP given by nurse. Information Scanned reviewed with patient and spouse including sedative warning. Verbalizes understanding. Medication Wastage: 1.5 mg wasted. - 20:43 Addie Montano R.N. LORazepam 23:39 0709 LORazepam (Ativan) IVP 0.5 mg given via Site# 1. Given (Ativan) IVP 0.5 mg Allergies verified and confirmed 5 rights. IV patency established. IV 23:39 11/24/2024 (NOW x1) site checked: no pain, redness, or swelling. IV flushed thoroughly Addie Montano R.N. pre-medication administration. IVP given by nurse. Information Scanned reviewed with patient and spouse including sedative warning. Verbalizes understanding. Medication Wastage: 1.5 mg wasted. - 23:40 Addie Montano R.N. LORazepam 02:11/25 LORazepam (Ativan) IVP 0.5 mg given via Site# 1. Given (Ativan) IVP 0.5 mg Allergies verified and confirmed 5 rights. IV patency established. IV 02:23 11/25/2024 (NOW x1) site checked: no pain, redness, or swelling. IV flushed thoroughly Addie Montano R.N. pre-medication administration. IVP given by nurse. Information Scanned reviewed with patient and family including sedative warning. Verbalizes understanding. Medication Wastage: 1.5 mg wasted. - 02:24 Addie Montano R.N. 1 of 2 University Archivist 2 of 2 [facility] ED NURSES CLINICAL NOTEon ED NURSES CLINICAL NOTE Nurse Narrative Nurse Clinical Narrative [address] [address] [id number] 11/24/2024 17:02:00 Patient: FRANKLIN BURTON Sex: Male : 1945 Age: 79y Disposition: Transfer to [facility] Disposition Decision Time: 19:34 11/24/2024 Departure Time: 04:18 11/25/2024 TRIAGE Arrived by EMS. Historian: (patient and family). Accompanied by family. Triage time: 17:13 11/24/2024. Acuity: LEVEL 2. Chief Complaint: FACIAL DROOP. This started today. Patient was last known well (16:00 11/24/2024). The patient has had altered mental status. EMS Treatment HEADER SET UP OPERATOR: Finger stick glucose performed (110). SEPSIS SCREEN: NEGATIVE. SIRS criteria negative. No possible sources of infection. NIH STROKE SCALE: Score 10. Performed at 17:14 11/24/2024. Level of Consciousness: drowsy (1). LOC Questions: neither (2). LOC Commands: both (0). Best gaze: normal (0). Visual field loss: none (0). Facial palsy: minor (1). Motor arm: no drift left arm (0) and some effort against gravity right arm (2). Motor leg: no drift left leg (0) and some effort against gravity right leg (2). Limb ataxia: none (0). Sensory loss: none (0). Aphasia: mild to moderate (1). Dysarthria: mild to moderate (1). Extinction and inattention: none (0). -- 17:11/24/24 ELIDA Meyers R.N. 17:11/24/24. BP: 135/72 MAP: 93. HR: 72. RR: 16. O2 saturation: 95% Temperature: 98.2 F. Pain level now 0/10. -- 17:11/24/24 ELIDA Meyers R.N. 1 of 5 Nurse Narrative Measurements: 17:11/24/24 Wt: 99.8 kg, Ht/Jhon: 66.0 in, BMI: 35.51 -- 17:11/24/24 ELIDA Meyers R.N. Medications: tamsulosin 0.4 mg capsule -- 17:11/24/24 ELIDA Meyesr R.N. oxycodone-acetaminoph en 5 mg-325 mg tablet -- 17:11/24/24 ELIDA Meyers R.N. melatonin 3 mg tablet: TAKE 1 TABLET BY MOUTH AT BEDTIME NEEDED FOR SLEEP -- 17:11/24/24 ELIDA Meyers R.N. gabapentin 100 mg capsule -- 17:11/24/24 ELIDA Meyers R.N. metoprolol tartrate 25 mg tablet -- 17:11/24/24 ELIDA Meyers R.N. omeprazole 40 mg capsule,delayed release -- 17:11/24/24 ELIDA Meyers R.N. pregabalin 25 mg capsule -- 17:33 11/24/24 EDT Praneeth Meyers R.N. Allergies: aspirin -- 17:50 11/24/24 EDT Clayton Del Real R.N. 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 Chronic kidney disease (disorder) -- 17:29 11/24/24 EDT Praneeth Meyers R.N. Hypertension -- 17:30 11/24/24 TOOT Praneeth Meyers R.N. Surgeries: fistula placement -- 17:30 11/24/24 TOOT Praneeth Meyers R.N. History 17:13 11/24/24. SOCIAL HX: Never smoker. No alcohol use or drug use. The patient has not traveled outside the [place] Infectious disease exposure: No infectious disease exposure. ABUSE ASSESSMENT: No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 11/26/24 1536 Supplement:Lunch, Dinner; Vanilla Magic Cup Until discontinued Question Answer Comment Frequency Lunch Frequency Dinner Select supplement: Vanilla Magic Cup 11/26/24 1536 11/26/24 1030 Adult diet Dysphagia - Pureed Diet effective now Comments: Pureed/thin with 1:1 assist Question: Diet type Answer: Dysphagia - Pureed 11/26/24 1031 Aspiration Precautions: - Upright positioning for all PO intake - Slow rate of intake - Small bites/sips - PO when fully alert - 1:1 Assistance - as needed - Single sips Oxygen: Oxygen Therapy: None (Room air) O2 Delivery Method: Nasal cannula O2 Flow Rate (L/min): 2 L/min Pain: Pt denies any current pain. PPE Worn: gloves Objective & Assessment Activity 1: diet tolerance Pt was repositioned in bed to be upright. Agreeable to PO trials. Reports bottom dentition were pulled last month and gums are "Finally healing". Upper dentures in place. Accepted liquids via cup edge, self-fed, WFL. Tolerated puree solids WFL. Trialed minced/moist & soft/bite sized textures this date. Pt tolerated minced/moist solids with timely mastication, achieved full bolus clearance. Soft/bite sized solids resulted in more prolonged mastication/oral holding "I have to let it soak in my mouth a bit". Pt did clear soft/bite sized solids but also complained of gums "feeling sore". There were no overt s/s of aspiration/penetratio n noted. Vocal quality remained clear. Appropriate for small diet advancement. Plan & Recommendations Plan: Continue acute [employer] therapy per initial plan of care and established goals. Recommend Minced and moist solids and Thin liquids and meds as tolerated and the following precautions: - Upright positioning for all PO intake - Slow rate of intake - Small bites/sips - Supervision with PO - Alternate solid and liquids D/C Recommendations: to be determined Education Education Given: swallowing strategies, diet recommendations Given To: patient, spouse, and RN Response: verbalizes understanding Goals Patient Stated Goal: get up and move a bit" Encounter Problems Encounter Problems (Active) Swallowing Patient will tolerate the least restrictive diet consistency to allow for safe consumption of daily meals (Progressing) Start: 11/25/24 Expected End: 12/09/24 Patient will demonstrate safe swallowing Intervention/techniqu es (Progressing) Start: 11/25/24 Expected End: 12/09/24 Patient will participate in repeat clinical dysphagia evaluation (Completed) Start: 11/25/24 Expected End: 12/09/24 Resolved: 11/26/24 Therapy Time [employer] Individual Minutes Time In: 1110 Time Out: 1125 Minutes: 15 Sarah Bass CCC-[employer] Normal [facility] Progress Note [facility] Geriatric Medicine Inpatient Consult Service Admission Date: 11/25/2024 Assessment Principal Problem: Stroke-like symptoms Active Problems: Stroke-like symptom Plan Acute Metabolic Encephalopathy --Waxing/waning --Etiology likely multifactorial related to medication effect, polypharmacy, dialysis, hospital environment. Risk factors include age, cognitive deficits. --Evaluated by neurology. EEG with no observed seizures. 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 Recommend to wean as able. Hold for sedation. --[place] PRN Seroquel and Haldol for ONLY if danger to self/others/treatment --If antipsychotics are necessary for agitation, recommend seroquel 12.5 mg BID prn agitation (first line) and haldol 0.5 mg IM q6hr prn agitation (2nd line) ---Would avoid benzodiazepines in this older adult patient as this drug class increases risk of falls and confusion along with other potentially negative side effects which would outweigh any theoretical benefit. --Continue scheduled melatonin at HS --Monitor for constipation/urinary retention - last BM 11/29 --Possible medication contributions: Agree with continuing gabapentin due to risk for withdrawal Recommend to avoid hydroxyzine due to anticholinergic side effects, Cognitive deficits --+ history of cognitive decline at home. Unclear history of decline in ADL's and IADL's --TSH WNL, B12 WNL --Head imaging - MRI brain on 11/27 showing chronic ischemic and atrophic changes --Recommend outpatient follow up at [facility]) for more in depth cognitive evaluation when in usual state of health. Polypharmacy Medications reviewed with geriatric pharmacist with recommendations as below --Monitor for opioid withdrawal symptoms and uncontrolled pain. Consider initiation of oxycodone 2.5 mg PO BID PRN moderate-severe pain or low-dose oral hydromorphone (0.5 mg PO BID PRN moderate-severe pain). If agitated, first screen for pain. --Uncertain need for both pregabalin and gabapentin. Agree with elimination of pregabalin but, to avoid withdrawal, consider changing gabapentin to 300 mg PO QHS if pregabalin 25 mg PO BID is stopped abruptly. --Agree with fasting iron panel to detect reversible contributors to restless legs syndrome. --Consider initiation of acetaminophen 1000 mg PO TID and discontinuation of PRN order. Debility --Related to acute illness, deconditioning, diabetes, RLS, neuropathy --Continue PT/OT as able while inpatient --Anticipate d/c to SNF for ongoing daily PT/OT --Will check vitamin D level Neuropathy RLS -Denies symptoms of RLS at time of visit. Pain well controlled at time time. - Agree with continuing gabapentin to avoid withdrawal. - Agree with renally dosing given his diagnosis of end-stage renal disease on hemodialysis. Plan discussed with Dr. Lott and geriatric pharmacist. Follow-up: will follow with you Subjective Chief Complaint: stroke-like symptoms Geriatrics consulted for "rec confusion" HPI- The patient is new to me but seen by the Geriatric Inpatient Consult team. 79 y.o. year-old male admitted to acute care from outside facility for altered mental stays. Diagnosed with acute metabolic encephalopathy. Admitted for neurological evaluation however complicated by agitation. Ammonia, vitamin B12 WNL. Patient transferred to ICU for completion management of agitation to complete EEG and MRI brain. Interval History: Transferred to telemetry. Per review of chart, mentation improved on 11/26 and felt to be dialysis disequilibrium syndrome per neurology evaluation. Received PRN Haldol 2 mg overnight and PRN hydroxyzine. Seen by nephology this morning with AMS unlikely to be Dds. Plan for HD today. Per progress note, information provided for new PCP. Labs reviewed with sodium 134, BUN 31, creatinine 4.03, hemoglobin 10.7. Patient awake and alert in bed. Ambulated back to bed with nurse aide and nurse strawberry grower at bedside. Patient denies pain and reports he slept well overnight. Reports he takes pregabalin, gabapentin, and percocet for RLS to help with the pain. Spoke to at bedside. Patient's mentation has improved since his admission. He is close to baseline mentation. Overnight he told his he had screws and was looking for a drawer to put the screws in. She states he was not this confused at night prior to admission. Reports he was forgetful at times. She is agreeable to follow up with geriatrics outpatient. Will provide information on discharge paperwork. Spoke to nurse strawberry grower at bedside. Patient was agitated overnight and received PRN medications. No reported agitation this mor (more content not included)... Normal [facility] THYROID STIMULATING HORMONEo n 11-29-2024 THYROID STIMULATING HORMONE 1.38 uIU/mL Normal 0.35-4.94 [facility] Comment on above: Performed By: #### L AB129, QAI140, [id number], LAB17 ####Chief Gauger: LYNDSEY NICOLE ([id number])[facility] ([facility])[address] [place] [address] TSH Qnon 11-29-2024 Interpretation and review of laboratory results Normal [facility] 30on 11-28-2024 30 Problem: Knowledge Deficit Goal: Patient/family/caregi reyes demonstrates understanding of disease process, treatment plan, medications, and discharge instructions Outcome: Progressing Problem: Neurological Deficit Goal: Neurological status is stable or improving Outcome: Progressing Problem: Activity Intolerance/Impaired Mobility Goal: Mobility/activity is maintained at optimum level for patient Outcome: Progressing Problem: Potential for Aspiration Goal: Non-ventilated patient's risk of aspiration is minimized Outcome: Progressing Goal: Ventilated patient's risk of aspiration is minimized Outcome: Progressing Problem: Nutrition Goal: Nutritional status is improving Outcome: Progressing Normal [facility] 30 Problem: Knowledge Deficit Goal: Patient/family/caregi reyes demonstrates understanding of disease process, treatment plan, medications, and discharge instructions 11/28/2024 05 by Lucero Coelho RN Outcome: Progressing 11/28/2024 0546 by Lucero Coelho RN Outcome: Progressing Problem: Neurological Deficit Goal: Neurological status is stable or improving 11/28/2024 0555 by Lucero Coelho RN Outcome: Progressing 11/28/2024 0546 by Lucero Coelho RN Outcome: Progressing Problem: Activity Intolerance/Impaired Mobility Goal: Mobility/activity is maintained at optimum level for patient 11/28/2024 05 by Lucero Coelho RN Outcome: Progressing 11/28/2024 0546 by Lucero Coelho RN Outcome: Progressing Problem: Potential for Aspiration Goal: Non-ventilated patient's risk of aspiration is minimized 11/28/2024 0555 by Lucero Coelho RN Outcome: Progressing 11/28/2024 0546 by Lucero Coelho RN Outcome: Progressing Goal: Ventilated patient's risk of aspiration is minimized 11/28/2024 0555 by Lucero Coelho RN Outcome: Progressing 11/28/2024 0546 by Lucero Coelho RN Outcome: Progressing Problem: Nutrition Goal: Nutritional status is improving 11/28/2024 0555 by Lucero Coelho RN Outcome: Progressing 11/28/2024 0546 by Lucero Coelho RN Outcome: Progressing Normal [facility] 30 Problem: Knowledge Deficit Goal: Patient/family/caregi reyes demonstrates understanding of disease process, treatment plan, medications, and discharge instructions Outcome: Progressing Problem: Neurological Deficit Goal: Neurological status is stable or improving Outcome: Progressing Problem: Activity Intolerance/Impaired Mobility Goal: Mobility/activity is maintained at optimum level for patient Outcome: Progressing Problem: Potential for Aspiration Goal: Non-ventilated patient's risk of aspiration is minimized Outcome: Progressing Goal: Ventilated patient's risk of aspiration is minimized Outcome: Progressing Problem: Nutrition Goal: Nutritional status is improving Outcome: Progressing Normal [facility] CBC (HEMOGRAM)on 11-28-2024 Erythrocyte distribution width (RBC) [Ratio] 13.1 % Normal 11.5-15.0 [facility] Comment on above: Performed By: #### L AB294 ####Chief Gauger: LYNDSEY NICOLE ([id number])[facility])[address] [place] [address] Hematocrit (Bld) [Volume fraction] 31.9 % Low 40.0-52.0 [facility] Comment on above: Performed By: #### L AB294 ####Chief Gauger: LYNDSEY NICOLE ([id number])[facility])[address] [place] [address] Hemoglobin (Bld) [Mass/Vol] 10.5 g/dL Low 13.0-18.0 [facility] Comment on above: Performed By: #### L AB294 ####Chief Gauger: LYNDSEY NICOLE ([phone])[facility])[address] [place] [address] MCH (RBC) [Entitic mass] 30.8 pg Normal 26.0-34.0 [facility] Comment on above: Performed By: #### L AB294 ####Chief Gauger: LYNDSEY NICOLE ([id number])[facility])[address] [place] [address] MCHC 32.9 % Normal 30.5-36.0 [facility] Comment on above: Performed By: #### L AB294 ####Chief Gauger: LYNDSEY NICOLE ([id number])[facility])[address] [place] [address] MCV (RBC) [Entitic vol] 93.5 fL Normal 77.0-99.0 [facility] Comment on above: Performed By: #### L AB294 ####Chief Gauger: LYNDSEY NICOLE ([id number])[facility])[address] [place] [address] Platelet mean volume (Bld) [Entitic vol] 9.8 fL Normal 9.0-12.7 [facility] Comment on above: Performed By: #### L AB294 ####Chief Gauger: LYNDSEY NICOLE ([id number])[facility] ([facility])[address] [place] [address] Platelets (Bld) [#/Vol] 118 10*3/uL Low 140-440 [facility] Comment on above: Performed By: #### L AB294 ####Chief Gauger: LYNDSEY NICOLE ([id number])[facility] ([facility])[address] [place] [address] RBC (Bld) [#/Vol] 3.41 10*6/uL Low 4.40-5.90 [facility] Comment on above: Performed By: #### L AB294 ####Chief Gauger: LYNDSEY NICOLE ([id number])[facility] ([facility])[address] [place] [address] WBC (Bld) [#/Vol] 4.6 10*3/uL Normal 3.6-10.7 [facility] Comment on above: Performed By: #### L AB294 ####Chief Gauger: LYNDSEY NICOLE ([id number])[facility] ([facility])[address] [place] [address] CBC panel Auto (Bld)on 11-28 Erythrocyte distribution width (RBC) [Ratio] 13.1 % 11.5 - 15.0 % [facility] Hematocrit (Bld) [Volume fraction] 31.9 % Low 40.0 - 52.0 % [facility] Hemoglobin (Bld) [Mass/Vol] 10.5 g/dL Low 13.0 - 18.0 g/dL [facility] Interpretation and review of laboratory results Abnormal [facility] MCH (RBC) [Entitic mass] 30.8 pg 26.0 - 34.0 pg [facility] MCHC (RBC) [Mass/Vol] 32.9 % 30.5 - 36.0 % [facility] MCV (RBC) [Entitic vol] 93.5 fL 77.0 - 99.0 fL [facility] Platelet mean volume (Bld) [Entitic vol] 9.8 fL 9.0 - 12.7 fL [facility] Platelets (Bld) [#/Vol] 118 10*3/uL Low 140 - 440 10*3/uL [facility] RBC (Bld) [#/Vol] 3.41 10*6/uL Low 4.40 - 5.9 0 10*6/uL [facility] WBC (Bld) [#/Vol] 4.6 10*3/uL 3.6 - 10.7 10*3/uL [facility] COMPREHENSIVE METABOLIC PANE Jase 11-28-2024 Albumin [Mass/Vol] 3.1 g/dL Low 3.4-4.8 [facility] Comment on above: Performed By: #### L AB103, WQC109, LAB17 ####Chief Gauger: LYNDSEY NICOLE ([id number])[facility] ([facility])[address] [place] [address] ALP [Catalytic activity/Vol] 82 U/L Normal 40-150 [facility] Comment on above: Performed By: #### L AB103, UTT213, LAB17 ####Chief Gauger: LYNDSEY NICOLE ([id number])[facility] ([facility])[address] [place] [address] ALT [Catalytic activity/Vol] 16 U/L Normal <40 [facility] Comment on above: Performed By: #### L AB103, PMQ914, LAB17 ####Chief Gauger: LYNDSEY NICOLE ([id number])[facility])[address] [place] [address] Anion gap [Moles/Vol] 7 mmol/L Normal 3-13 [facility] Comment on above: Performed By: #### L AB103, NDG133, LAB17 ####Chief Gauger: LYNDSEY NICOLE ([id number])[facility])[address] [place] [address] AST [Catalytic activity/Vol] 31 U/L Normal <34 [facility] Comment on above: Performed By: #### L AB103, GIC210, LAB17 ####Chief Gauger: LYNDSEY NICOLE ([id number])[facility] [place] [address] [place] Bilirubin [Mass/Vol] 0.8 mg/dL Normal <1.2 [facility] Comment on above: Performed By: #### L AB103, XUT978, LAB17 ####Chief Gauger: LYNDSEY NICOLE ([id number])[facility])[address] [place] [address] Calcium [Mass/Vol] 8.8 mg/dL Normal 8.8-10.0 [facility] Comment on above: Performed By: #### L AB103, RHV353, LAB17 ####Chief Gauger: LYNDSEY NICOLE ([id number])[facility])[address] [place] [address] Chloride [Moles/Vol] 105 mmol/L Normal 98-107 [facility] Comment on above: Performed By: #### L AB103, HVO587, LAB17 ####Chief Gauger: LYNDSEY NICOLE ([id number])[facility] [place] [address] [place] CO2 [Moles/Vol] 22 mmol/L Low 23-31 [facility] Comment on above: Performed By: #### L AB103, ETI981, LAB17 ####Chief Gauger: LYNDSEY NICOLE ([id number])[facility])[address] [place] [address] Creatinine [Mass/Vol] 3.52 mg/dL High 0.72-1.25 [facility] Comment on above: Performed By: #### L AB103, OGG558, LAB17 ####Chief Gauger: LYNDSEY NICOLE ([id number])[facility])[address] [place] [address] [place] GLOMERULAR FILTRATION RATE ML/MIN/1.73 SQ M.PREDICTED 17.0 mL/min/1.73m*2 Low >60.0 [facility] Comment on above: Result Comment: Calc ulation based on the Chronic Kidney Disease Epidemiology Collaboration (CKD-EPI) equation refit without adjustment for race Performed By: #### Jin AB103, FAL699, LAB17 ####Chief Gauger: LYNDSEY NICOLE ([id number])[facility])[address] [place] [address] Glucose [Mass/Vol] 97 mg/dL Normal 82-115 [facility] Comment on above: Performed By: #### Jin ABReyna, YGD266, LAB17 ####Chief Gauger: LYNDSEY NICOLE ([id number])[facility])[address] [place] [address] Potassium [Moles/Vol] 4.1 mmol/L Normal 3.5-5.1 [facility] Comment on above: Result Comment: [facility] potassium values may be up to 0.5 mmol/L lower than serum values. Performed By: #### Jin ABReyna, [id number], LAB17 ####Chief Gauger: LYNDSEY NICOLE ([phone])[facility])[address] [place] [address] Protein [Mass/Vol] 6.0 g/dL Low 6.4-8.3 [facility] Comment on above: Performed By: #### Jin SARAH, [id number], LAB17 ####Chief Gauger: LYNDSEY NICOLE ([phone])[facility])[address] [place] [address] Sodium [Moles/Vol] 134 mmol/L Low 136-145 [facility] Comment on above: Performed By: #### Jin SARAH, [id number], LAB17 ####Chief Gauger: LYNDSEY NICOLE ([phone])[facility])[address] [place] [address] [place] Urea nitrogen [Mass/Vol] 26 mg/dL High 9-23 [facility] Comment on above: Performed By: #### Jin AB103, UCM525, LAB17 ####Chief Gauger: LYNDSEY NICOLE ([phone])[facility])[address] [place] [address] Comprehensive metabolic 1998 panelon 11-28-2024 Albumin [Mass/Vol] 3.1 g/dL Low 3.4 - 4.8 g/dL [facility] ALP [Catalytic activity/Vol] 82 U/L 40 - 150 U/L [facility] ALT [Catalytic activity/Vol] 16 U/L NINF - 40 U/L [facility] Anion gap [Moles/Vol] 7 mmol/L 3 - 13 mmol/L [facility] AST [Catalytic activity/Vol] 31 U/L NINF - 34 U/L [facility] Bilirubin [Mass/Vol] 0.8 mg/dL NINF - 1.2 mg/dL [facility] Calcium [Mass/Vol] 8.8 mg/dL 8.8 - 10. 0 mg/dL [facility] Chloride [Moles/Vol] 105 mmol/L 98 - 10 7 mmol/L [facility] CO2 [Moles/Vol] 22 mmol/L Low 23 - 31 mmol/L [facility] Creatinine [Mass/Vol] 3.52 mg/dL High 0.72 - 1.25 mg/dL [facility] GFR/1.73 sq M.predicted (S/P/Bld) [Vol rate/Area] 17 mL/min Low - PINF [facility] Comment on above: Calculation based on the Chronic Kidney Disease Epidemiology Collaboration (CKD-EPI) equation refit without adjustment for race Glucose [Mass/Vol] 97 mg/dL 82 - 115 mg/dL [facility] Potassium [Moles/Vol] 4.1 mmol/L 3.5 - 5.1 mmol/L [facility] Comment on above: Plasma potassium carson ues may be up to 0.5 mmol/L lower than serum values. Protein [Mass/Vol] 6 g/dL Low 6.4 - 8.3 g/dL [facility] Sodium [Moles/Vol] 134 mmol/L Low 136 - 145 mmol/L [facility] Urea nitrogen [Mass/Vol] 26 mg/dL High 9 - 23 mg/dL [facility] Laboratory - Chemistry and C hemistry - challengeon 11-28-2024 Glucose [Mass/Vol] 112 mg/dL High 70 - 100 mg/dL [facility] Glucose [Mass/Vol] 119 mg/dL High 70 - 100 mg/dL [facility] Glucose [Mass/Vol] 107 mg/dL High 70 - 100 mg/dL [facility] Magnesium [Mass/Vol] 1.9 mg/dL 1.6 - 2 .6 mg/dL [facility] Glucose [Mass/Vol] 96 mg/dL 70 - 100 mg/dL [facility] MAGNESIUMon 11-28-2024 Magnesium [Mass/Vol] 1.9 mg/dL Normal 1.6-2.6 [facility] Comment on above: Result Comment: KP Martínez COMMENTS: Higher values can be expected in females during menses. Performed By: #### L AB103, [id number], LAB17 ####Chief Gauger: LYNDSEY NICOLE ([phone])[facility] [place] [address] [place] Magnesium [Mass/Vol]on 11-28 Interpretation and review of laboratory results Normal [facility] Higher values can be expected in females during menses. [facility] [employer] No Panel Informationon 11-28 Interpretation and review of laboratory results Abnormal [facility] [employer] Performed by: [address] [address] CLIA ID: [id number] [facility] Interpretation and review of laboratory results Abnormal [facility] Performed by: [address] [address] CLIA ID: [id number] [facility] Interpretation and review of laboratory results Abnormal [facility] Performed by: [address] [address] CLIA ID: [id number] [facility] Interpretation and review of laboratory results Abnormal [facility] Interpretation and review of laboratory results Normal [facility] Performed by: [address] [address] CLIA ID: [id number] [facility] PHOSPHORUSon 11-28-2024 Phosphate [Mass/Vol] 2.0 mg/dL Low 2.3-4.7 [facility] Comment on above: Performed By: #### L AB103, [id number], LAB17 ####Chief Gauger: LYNDSEY NICOLE ([phone])[facility] ([facility])[address] [place] [address] [place] Phosphate [Moles/Vol]on 11-16 Phosphate [Mass/Vol] 2 mg/dL Low 2.3 - 4 .7 mg/dL [facility] CBC (HEMOGRAM)on 11-27-2024 Erythrocyte distribution width (RBC) [Ratio] 13.1 % Normal 11.5-15.0 [facility] Comment on above: Performed By: #### L AB294 ####Chief Gauger: LYNDSEY NICOLE ([phone])[facility])[address] [place] [address] Hematocrit (Bld) [Volume fraction] 33.7 % Low 40.0-52.0 [facility] Comment on above: Performed By: #### L AB294 ####Chief Gauger: LYNDSEY NICOLE ([phone])[facility])[address] [place] [address] Hemoglobin (Bld) [Mass/Vol] 11.1 g/dL Low 13.0-18.0 [facility] Comment on above: Performed By: #### L AB294 ####Chief Gauger: LYNDSEY NICOLE ([phone])[facility])[address] [place] [address] MCH (RBC) [Entitic mass] 30.8 pg Normal 26.0-34.0 [facility] Comment on above: Performed By: #### L AB294 ####Chief Gauger: LYNDSEY NICOLE ([phone])[facility])[address] [place] [address] MCHC 32.9 % Normal 30.5-36.0 [facility] Comment on above: Performed By: #### L AB294 ####Chief Gauger: LYNDSEY NICOLE ([phone])[facility])[address] [place] [address] MCV (RBC) [Entitic vol] 93.6 fL Normal 77.0-99.0 [facility] Comment on above: Performed By: #### L AB294 ####Chief Gauger: LYNDSEY NICOLE ([phone])[facility])[address] [place] [address] Platelet mean volume (Bld) [Entitic vol] 9.7 fL Normal 9.0-12.7 [facility] Comment on above: Performed By: #### L AB294 ####Chief Gauger: LYNDSEY NICOLE ([phone])[facility] ([facility])[address] [place] [address] Platelets (Bld) [#/Vol] 114 10*3/uL Low 140-440 [facility] Comment on above: Performed By: #### L AB294 ####Chief Gauger: LYNDSEY NICOLE ([phone])[facility] ([facility])[address] [place] [address] RBC (Bld) [#/Vol] 3.60 10*6/uL Low 4.40-5.90 [facility] Comment on above: Performed By: #### L AB294 ####Chief Gauger: LYNDSEY NICOLE ([phone])[facility] ([facility])[address] [place] [address] WBC (Bld) [#/Vol] 5.9 10*3/uL Normal 3.6-10.7 [facility] Comment on above: Performed By: #### L AB294 ####Chief Gauger: LYNDSEY NICOLE ([phone])[facility] ([facility])[address] [place] [address] CBC panel Auto (Bld)on 11-27 Erythrocyte distribution width (RBC) [Ratio] 13.1 % 11.5 - 15.0 % [facility] Hematocrit (Bld) [Volume fraction] 33.7 % Low 40.0 - 52.0 % [facility] Hemoglobin (Bld) [Mass/Vol] 11.1 g/dL Low 13.0 - 18.0 g/dL [facility] Interpretation and review of laboratory results Abnormal [facility] MCH (RBC) [Entitic mass] 30.8 pg 26.0 - 34.0 pg [facility] MCHC (RBC) [Mass/Vol] 32.9 % 30.5 - 36.0 % [facility] MCV (RBC) [Entitic vol] 93.6 fL 77.0 - 99.0 fL [facility] Platelet mean volume (Bld) [Entitic vol] 9.7 fL 9.0 - 12.7 fL [facility] Platelets (Bld) [#/Vol] 114 10*3/uL Low 140 - 440 10*3/uL [facility] RBC (Bld) [#/Vol] 3.6 10*6/uL Low 4.40 - 5.9 0 10*6/uL [facility] WBC (Bld) [#/Vol] 5.9 10*3/uL 3.6 - 10.7 10*3/uL [facility] COMPREHENSIVE METABOLIC PANE Jase 11-27-2024 Albumin [Mass/Vol] 3.3 g/dL Low 3.4-4.8 [facility] Comment on above: Performed By: #### Jin AB17, YRG379, DBZ382 ####Chief Gauger: LYNDSEY NICOLE ([phone])[facility] ([facility])[address] [place] [address] ALP [Catalytic activity/Vol] 83 U/L Normal 40-150 [facility] Comment on above: Performed By: #### Jin AB17, TQR841, TMG843 ####Chief Gauger: LYNDSEY NICOLE ([phone])[facility] ([facility])[address] [place] [address] ALT [Catalytic activity/Vol] 9 U/L Normal <40 [facility] Comment on above: Performed By: #### Jin AB17, TAD453, KPP233 ####Chief Gauger: LYNDSEY NICOLE ([phone])[facility] ([facility])[address] [place] [address] Anion gap [Moles/Vol] 9 mmol/L Normal 3-13 [facility] Comment on above: Performed By: #### L AB17, OAH081, KEV012 ####Chief Gauger: LYNDSEY NICOLE ([phone])[facility])[address] [place] [address] AST [Catalytic activity/Vol] 27 U/L Normal <34 [facility] Comment on above: Performed By: #### L AB17, GZT115, ZMT656 ####Chief Gauger: LYNDSEY NICOLE ([phone])[facility] ([facility])[address] [place] [address] [place] Bilirubin [Mass/Vol] 1.2 mg/dL High <1.2 [facility] Comment on above: Performed By: #### L AB17, LQR529, TPW111 ####Chief Gauger: LYNDSEY NICOLE ([phone])[facility])[address] [place] [address] Calcium [Mass/Vol] 8.9 mg/dL Normal 8.8-10.0 [facility] Comment on above: Performed By: #### L AB17, ILF223, ENL612 ####Chief Gauger: LYNDSEY NICOLE ([phone])[facility])[address] [place] [address] Chloride [Moles/Vol] 103 mmol/L Normal 98-107 [facility] Comment on above: Performed By: #### L AB17, PIT516, LZI497 ####Chief Gauger: LYNDSEY NICOLE ([phone])[facility])[address] [place] [address] CO2 [Moles/Vol] 24 mmol/L Normal 23-31 [facility] Comment on above: Performed By: #### L AB17, HGS244, GJB428 ####Chief Gauger: LYNDSEY NICOLE ([phone])[facility] ([facility])[address] [place] [address] [place] Creatinine [Mass/Vol] 2.84 mg/dL High 0.72-1.25 [facility] Comment on above: Performed By: #### L AB17, FPT828, VDQ356 ####Chief Gauger: LYNDSEY NICOLE ([phone])[facility])[address] [place] [address] [place] GLOMERULAR FILTRATION RATE ML/MIN/1.73 SQ M.PREDICTED 22.0 mL/min/1.73m*2 Low >60.0 [facility] Comment on above: Result Comment: Calc ulation based on the Chronic Kidney Disease Epidemiology Collaboration (CKD-EPI) equation refit without adjustment for race Performed By: #### Jin AB17, TUH865, UTE983 ####Chief Gauger: LYNDSEY NICOLE ([id number])[facility])[address] [place] [address] Glucose [Mass/Vol] 110 mg/dL Normal 82-115 [facility] Comment on above: Performed By: #### Jin AB17, WLH053, FXT107 ####Chief Gauger: LYNDSEY NICOLE ([phone])[facility])[address] [place] [address] Potassium [Moles/Vol] 3.9 mmol/L Normal 3.5-5.1 [facility] Comment on above: Result Comment: [facility] potassium values may be up to 0.5 mmol/L lower than serum values. Performed By: #### Jin HURTADO17, SJZ128, HCA888 ####Chief Gauger: LYNDSEY NICOLE ([phone])[facility])[address] [place] [address] Protein [Mass/Vol] 6.3 g/dL Low 6.4-8.3 [facility] Comment on above: Performed By: #### Jin MCWILLIAMS, WRY705, GTS242 ####Chief Gauger: LYNDSEY NICOLE ([phone])[facility])[address] [place] [address] Sodium [Moles/Vol] 136 mmol/L Normal 136-145 [facility] Comment on above: Performed By: #### Jin MCWILLIAMS, BBR743, NCA795 ####Chief Gauger: LYNDSEY NICOLE ([phone])[facility])[address] [place] [address] Urea nitrogen [Mass/Vol] 16 mg/dL Normal 9-23 [facility] Comment on above: Performed By: #### Jin AB17, EEV356, RIJ929 ####Chief Gauger: LYNDSEY NICOLE ([phone])[facility])[address] [place] [address] Comprehensive metabolic 1998 panelOrdered By: Meghna Jensen on 11-27-2024 Albumin [Mass/Vol] 3.3 g/dL Low 3.4 - 4.8 g/dL [facility] ALP [Catalytic activity/Vol] 83 U/L 40 - 150 U/L [facility] ALT [Catalytic activity/Vol] 9 U/L NINF - 40 U/L [facility] Anion gap [Moles/Vol] 9 mmol/L 3 - 13 mmol/L [facility] AST [Catalytic activity/Vol] 27 U/L NINF - 34 U/L [facility] Bilirubin [Mass/Vol] 1.2 mg/dL High NINF - 1.2 mg/dL [facility] Calcium [Mass/Vol] 8.9 mg/dL 8.8 - 10. 0 mg/dL [facility] Chloride [Moles/Vol] 103 mmol/L 98 - 10 7 mmol/L [facility] CO2 [Moles/Vol] 24 mmol/L 23 - 31 mmol/L [facility] Creatinine [Mass/Vol] 2.84 mg/dL High 0.72 - 1.25 mg/dL [facility] GFR/1.73 sq M.predicted (S/P/Bld) [Vol rate/Area] 22 mL/min Low - PINF [facility] Comment on above: Calculation based on the Chronic Kidney Disease Epidemiology Collaboration (CKD-EPI) equation refit without adjustment for race Glucose [Mass/Vol] 110 mg/dL 82 - 115 mg/dL [facility] Interpretation and review of laboratory results Abnormal [facility] Potassium [Moles/Vol] 3.9 mmol/L 3.5 - 5.1 mmol/L [facility] Comment on above: Plasma potassium carson ues may be up to 0.5 mmol/L lower than serum values. Protein [Mass/Vol] 6.3 g/dL Low 6.4 - 8.3 g/dL [facility] Sodium [Moles/Vol] 136 mmol/L 136 - 145 mmol/L [facility] Urea nitrogen [Mass/Vol] 16 mg/dL 9 - 23 mg/dL [facility] Laboratory - Chemistry and C hemistry - challengeon 11-27-2024 Glucose [Mass/Vol] 110 mg/dL High 70 - 100 mg/dL [facility] Glucose [Mass/Vol] 100 mg/dL 70 - 100 mg/dL [facility] Magnesium [Mass/Vol] 1.9 mg/dL 1.6 - 2 .6 mg/dL [facility] Glucose [Mass/Vol] 111 mg/dL High 70 - 100 mg/dL [facility] MAGNESIUMon 11-27-2024 Magnesium [Mass/Vol] 1.9 mg/dL Normal 1.6-2.6 [facility] Comment on above: Result Comment: KP Martínez COMMENTS: Higher values can be expected in females during menses. Performed By: #### L AB17, [id number], PER029 ####Chief Gauger: LYNDSEY NICOLE ([phone])[facility] ([facility])[address] [place] [address] MR Brain WO contraston 11-27 1. No acute intracranial findings. 2. Probable chronic ischemic and atrophic changes. Report Dictated on Electronically Signed By: Robin Sandoval MD Electronically Signed Date/Time: 11/27/2024 12:01 AM EDT [facility] Patient Name: FRANKLIN BURTON : 1945 Exam Date/Time: 11/26/2024 16:53 Procedure: MR BRAIN WO CONTRAST Ordering Provider: WEINBERG LATHA Reason For Exam: Stroke, follow up; COncerns for dialysis dysequilibrium syndrome MRI OF THE BRAIN WITHOUT GADOLINIUM CLINICAL INDICATION: Stroke, follow up; Concerns for dialysis dysequilibrium syndrome TECHNIQUE: Routine MRI of the brain without IV gadolinium. COMPARISON: CT brain, 1 day prior. FINDINGS: Motion artifact limits examination somewhat. No apparent mass, mass effect, hemorrhage, midline shift or hydrocephalus. No acute infarct seen on diffusion weighted imaging. Patchy foci of T2 and FLAIR bright signal in the periventricular and subcortical white matter are nonspecific, but may relate to chronic small vessel ischemic change. Mild-moderate, diffuse volume loss. No pathologic extra-axial fluid collection. No pineal region or sellar masses. No cerebellar tonsillar herniation. [facility] Robin Sandoval MD - 11/27/2024 Patient Name: FRANKLIN BURTON : 1945 Exam Date/Time: 11/26/2024 16:53 Procedure: MR BRAIN WO CONTRAST Ordering Provider: WEINBERG LATHA Reason For Exam: Stroke, follow up; COncerns for dialysis dysequilibrium syndrome MRI OF THE BRAIN WITHOUT GADOLINIUM CLINICAL INDICATION: Stroke, follow up; Concerns for dialysis dysequilibrium syndrome TECHNIQUE: Routine MRI of the brain without IV gadolinium. COMPARISON: CT brain, 1 day prior. FINDINGS: Motion artifact limits examination somewhat. No apparent mass, mass effect, hemorrhage, midline shift or hydrocephalus. No acute infarct seen on diffusion weighted imaging. Patchy foci of T2 and FLAIR bright signal in the periventricular and subcortical white matter are nonspecific, but may relate to chronic small vessel ischemic change. Mild-moderate, diffuse volume loss. No pathologic extra-axial fluid collection. No pineal region or sellar masses. No cerebellar tonsillar herniation. IMPRESSION: 1. No acute intracranial findings. 2. Probable chronic ischemic and atrophic changes. Report Dictated on Electronically Signed By: Robin Sandoval MD Electronically Signed Date/Time: 11/27/2024 12:01 AM EDT [facility] MR Brain WO contrastOrdered By: Robin Sandoval on 11-27-2024 [facility] [employer] Work Phone: Magnesium [Mass/Vol]on 11-27 Interpretation and review of laboratory results Normal [facility] Higher values can be expected in females during menses. [facility] No Panel Informationon 11-27 Interpretation and review of laboratory results Abnormal [facility] Performed by: [address] [address] CLIA ID: [id number] [facility] Interpretation and review of laboratory results Normal [facility] Performed by: [address] [address] CLIA ID: [id number] [facility] Joselito Rehman MD PhD 11/27/2024 1:21 PM [facility] [address] [place] [address] CONTINUOUS LONG-TERM VIDEO EEG MONITORING REPORT Patient Name: Franklin Burton : 1945 Date of Study: 11/27/2024 Duration Recorded: 13:50:00 EEG#: [id number] STAMP MAKER: Alvaro HARDY PROVIDER REQUESTING STUDY: Erasmo Singh DO REASON FOR EXAM: Evaluate for seizures DIAGNOSIS TAG: Encephalopathy NOS (ENC-NOS) HISTORY: Franklin Burton is a 79 y.o. male with history of rFanklin is a 79 y.o. male with past medical history below who was transferred from outside hospital for altered mentation. Patient not able to provide any history. Family at bedside. Reported that a few hours after dialysis patient became confused. Not coherent. Family reports having same episodes previously as well after dialysis. Which seems to have improved much earlier rather than this time. No fever. No recent travel no sick contacts family has not noticed any seizures. Patient evaluated at outside hospital and transferred to [facility] for further evaluation management. MEDICATIONS: Current Medications[1] TECHNICAL ASPECTS: This continuous scalp EEG study with video was carried out at [facility]. Scalp electrodes were positioned in person by an cytogenetic technologist, following patient education, according to the 10-20 International system of electrode placement and maintained for integrity and quality of the recording. An abbreviated set of electrodes was placed which included FP1/2, T7/8, C3/4, O1/2, Fz-Cz-Pz. EEG data with video was recorded continuously and digitally stored. The cytogenetic technologist reviewed all automated detections and manual events and prepared the data for archiving and provider review. Referential and bipolar montages were used for review. TECHNOLOGIST NOTES: No skull or scalp defects were observed. This video-EEG monitoring was continuously monitored, 4 patients per technologist. BACKGROUND ACTIVITY: Posterior background activity: A continuous organized 7-8 Hz, 10-25 uV rhythm was seen over the posterior head regions bilaterally. Beta range: Diffuse alpha-beta range activity (8-25 Hz, 10-20 uV) was seen. Sleep: Stage N2 sleep was reached as evidenced by the appearance of vertex waves and sleep spindles seen over the fronto-central head regions bilaterally. Normal Variants: None 00:00:37 -Background activity (AP Bipolar, LFF=1Hz, HFF=70Hz, Sens=7 uV/mm) SLOWING: Continuous (greater than 90% of the recording) diffuse delta range (6.5-7.5 Hz, 10-35 uV) irregular to semirhythmical slow wave activity was seen non-responsive to stimulation. INTERICTAL EPILEPTIFORM ACTIVITY: No epileptiform activity was seen. ICTAL ACTIVITY: No ictal activity was seen. NON-EPILEPTIC EVENTS: None. ACTIVATION PROCEDURES: Photic stimulation was not performed. Hyperventilation was not performed. IMPRESSION AND ACTIONS TAKEN: This continuous EEG with video is abnormal. Continuous diffuse mild slowing is seen not responsive to stimulation. Sleep architecture is observed. Posterior dominant rhythms are seen during wakefulness. No interictal epileptiform activity or seizures are observed. The findings are supportive of a stable mild global encephalopathy non-specific as to etiology. Compared with the previous recording, no change in the background rhythms are appreciated. The findings were communicated to the neurocritical care service (Dr. Emmanuelle Joseph) at 13:15 on 11/27/2024. Will disconnect vEEG monitoring. Joselito Rehman MD PhD Epilepsy Attending [1] Current Facility-Administered Medications Medication Dose Route Frequency Provider Last Rate Last Admin acetaminophen (Tylenol) tablet 650 mg 650 mg Oral q6h PRN Erasmo Singh DO 650 mg at 11/26/241999 Or acetaminophen (Tylenol) suppository 650 mg 650 mg Rectal q6h PRN Erasmo Singh DO atorvastatin (Lipitor) tablet 40 mg 40 mg Oral Nightly Erasmo Singh DO 40 mg at 11/26/241999 azaTHIOprine (Imuran) tablet 50 mg 50 mg Oral Lunch Erasmo Singh DO bisacodyl (Dulcolax) suppository 10 mg 10 mg Rectal Daily PRN Erasmo Singh DO carboxymethylcellulos e PF (Refresh Plus) 0.5 % ophthalmic solution 1 drop 1 drop Both Eyes 4x daily PRN Cristi Dasilva MD clopidogrel (Plavix) tablet 75 mg 75 mg Oral Daily Erasmo Singh DO 75 mg at 11/26/24 1015 dextrose 5 % infusion 100 mL/hr IntraVENous PRN Erasmo Singh DO dextrose 50 % solution 12.5 g 12.5 g IntraVENous PRN Erasmo Singh DO gabapentin (Neurontin) capsule 200 mg 200 mg Oral Nightly Erasmo Singh DO 200 mg at 11/26/241999 glucagon (human recombinant) (more content not included)... [facility] Interpretation and review of laboratory results Abnormal [facility] Performed by: [facility], [address] [place] [address] CLIA ID: [id number] [facility] PHOSPHORUSon 11-27-2024 Phosphate [Mass/Vol] 1.6 mg/dL Low 2.3-4.7 [facility] Comment on above: Performed By: #### L AB17, RGS189, IGY582 ####Chief Gauger: LYNDSEY NICOLE ([phone])[facility] ([facility])[address] [place], [place] [id number] [facility] Phosphate [Moles/Vol]on 11-16 Interpretation and review of laboratory results Abnormal [facility] Phosphate [Mass/Vol] 1.6 mg/dL Low 2.3 - 4 .7 mg/dL [facility] Progress Noteon 11-27-2024 Progress Note - Attestation signed by Fawad Ruiz MD at 11/27/2024 4:23 PM (Updated) I have personally seen the patient and examined along with the resident. I personally obtained the jorge and relevent portions of the history and performed physical exam. I reviewed the chart including MAR, labs, and radiology and agree with the patient's plan of action as discussed with the resident. This note reflects my plan of care as I have edited the note to reflect my findings and my assessment and plan. ROS documentation was reviewed and negative unless otherwise stated in HPI. Chief Complaint: Acute Metabolic Encephalopathy Additional pertinent interval history, ROS, and physical exam findings: Patient seen and examined. Asleep on precedex. Non-labored breathing. MRI without acute intracranial findings. Assessment and Plan: Acute Encephalopathy - unclear etiology ESRD on HD MWF Chronic anemia Thrombocytopenia Back pain with neuropathy DMII without hyperglycemia Hx ROYAL Hx RLS HFpEF - Avoid benzodiazepines given concern for worsening delirium - Stop precedex. Can utilize haldol/seroquel for agitation. - Nephrology following for HD - NeuroCC consulted - no need for LP. - NPO pending improvement. - speech eval - PT/OT Code Status: DNR-CCA, ok for intubation Disposition: Transfer to [facility] Time spent preparing to see the patient, obtaining/reviewing separately obtained history, completing an appropriate medical examination of the patient, ordering medications/tests/pro cedures, documenting clinical information on the EMR, and/or coordinating care is a subsequent visit: 35 minutes (Level II). Fawad Ruiz MD Pulmonary and Critical Care Medicine Attending Pager #[phone] ICU Progress Note Name: Franklin Burton : 1945(79 y.o.) Date: 11/27/24 Team: MICU Attending: Dr. Ruiz Subjective: Hospital Summary: 79 y/o M with PMHx ESRD on iHD, BPH, T2DM, Obesity, ROYAL, RLS, GPA, HFpEF (EF 50% on 11/25/24), chronic back pain with neuropathy who presented to [facility] as a transfer from outside facility for evaluation of AMS. Pt admitted to the hospitalist service with neurology consult. Plan is for EEG and MRI for further evaluation. However, the patient was notably too agitated for these studies to be completed. ICU consulted for admission for control of agitation. Interval Events: Overnight, patient became delirious and required 12.5 mg of Seroquel and was restarted on precedex. Also, he was complaining of abdominal discomfort so senna and simethicone were given. This morning patient is heavily sedated due to precedex. He is only responding to verbal stimuli and is not following commands. Family updated regarding plan for potential transfer to floor later in the day. Scheduled Meds:Scheduled Meds[1] Continuous Infusions:Continuous Meds[2] Objective: Last Vitals: BP MAP 144/66 (11/27/24 0600) 87 (11/27/24 06) Arterial BP MAP Temp 36.9 ?C (98.4 ?F) (11/27/24 0400) Pulse 80 (11/27/24 06) Resp (!) 27 (11/27/24 06) SpO2 96 % (11/27/24599) Weight 103 kg (228 lb) (11/25/24 1336) BMI Body mass index is 34.68 kg/m?. I/O: 11/26 699 - 11/27 658 In: 1510.3 [I.V.:1510.3] Out: 225 [Urine:225] Ventilator: Oxygen Delivery: O2 Flow Rate (L/min): 2 L/min Invasive Lines / Tubes / Drains: Peripheral IV 11/25/24 Anterior;Distal;Right ;Upper Arm (Active) Number of days: 1 Peripheral IV 11/26/24 Anterior;Distal;Right Forearm (Active) Number of days: 0 Central Line Indication: NA - patient does not have a central line Osorio Indications: Hourly I&Os (Critical Care ONLY) Restraints: NA - patient is not restrained. Wounds: Constitutional: General Appearance [x]WDWN [x]Obese []Cachectic []Thin []Ill Eyes: Inspection of Pupils/Irises Pupils round and react: []Yes []No Sclera: []Icteric []Non-Icteric Inspection of Conjunctiva/Lids Conjunctiva: []Injected []Non-Injected Lids: [x]Intact []Lesion Present ENT/Mouth: External Inspection of ears/nose [] Normal [] Scar/Lesion/Mass Inspection of teeth/lips/gums Dentition: [][place] Teeth []Dentures Lips/Gums: []Intact []Lesion Present Mucosa: [][place] []Moist []Dry Neck: External Appearance Overall Appearance: []Normal []Lesion/Mass/Crepitu s Present Trachea midline: []Yes []No Thyroid []Normal []Enlarged []Tender []Mass []Absent Respiratory: Respiratory effort []Labored [x]Non-Labored [] Mechanically-Ventilat ed Auscultation [x]Clear []Crackles []Wheezes []Rhonchi Cardiovascular: Auscultation Rate: [x]Regular []Irregular []Tachycardia []Bradycardia Rhythm: [x]Regular []Irregular Murmur: []Present [x]Absent Extremities Peripheral Edema: (more content not included)... Normal [facility] BLOOD GAS, VENOUSon 11-27-19 25 AMOUNT OF OXYGEN Normal [facility] Comment on above: Result Comment: KP Martínez COMMENTS: Assessment of oxygenation is best done with an arterial blood gas determination. Reference ranges for pO2, bicarbonate, and base excess are for mixed venous blood. Specimens drawn from a peripheral vein will often have higher values. Performed By: #### L [id number] ####Chief Gauger: LYNDSEY NICOLE ([phone])[facility])[address] [place] [address] Base excess Calc (BldV) [Moles/Vol] -1.3000 mmol/L Normal -3.0-3.0 [facility] Comment on above: Performed By: #### L [id number] ####Chief Gauger: LYNDSEY NICOLE ([phone])[facility])[address] [place] [address] CO2 [Moles/Vol] 26.0 mmol/L Normal 24.0-28.0 [facility] Comment on above: Performed By: #### L [id number] ####Chief Gauger: LYNDSEY NICOLE ([phone])[facility])[address] [place] [address] HCO3 (Bld) [Moles/Vol] 24.6 mmol/L Normal 23.0-27.0 [facility] Comment on above: Performed By: #### L [id number] ####Chief Gauger: LYNDSEY NICOLE ([phone])[facility])[address] [place] [address] Hemoglobin (Bld) [Mass/Vol] 12.0 g/dL Normal Screen only [facility] Comment on above: Performed By: #### L [id number] ####Chief Gauger: LYNDSEY [id number])[facility])[address] [place] [address] OXYGEN (MM HG) IN VENOUS BLOOD 58.4 mm Hg Normal [facility] Comment on above: Performed By: #### L [id number] ####Chief Gauger: LYNDSEY NICOLE ([phone])[facility])[address] [place] [address] OXYGEN SATURATION (%) IN VENOUS BLOOD 87.5 % Normal [facility] Comment on above: Performed By: #### L [id number] ####Chief Gauger: LYNDSEY NICOLE ([phone])[facility] ([facility])[address] [place] [address] PCO2, JANKI 46.2 mm Hg Normal 40.0-55.0 [facility] Comment on above: Performed By: #### L [id number] ####Chief Gauger: LYNDSEY NICOLE ([phone])[facility])[address] [place] [address] PH VENOUS 7.344 Normal 7.330-7.430 [facility] Comment on above: Performed By: #### L [id number] ####Chief Gauger: LYNDSEY NICOLE ([phone])[facility] ([facility])[address] [place] [address] SOURCE OF OXYGEN Nasal Cannula (LPM) Normal [facility] Comment on above: Performed By: #### L [id number] ####Chief Gauger: LYNDSEY NICOLE ([phone])[facility])[address] [place] [address] CBC (HEMOGRAM)on 11-26-2024 Erythrocyte distribution width (RBC) [Ratio] 13.1 % Normal 11.5-15.0 [facility] Comment on above: Performed By: #### L [id number] ####Chief Gauger: LYNDSEY NICOLE ([phone])[facility])[address] [place] [address] Hematocrit (Bld) [Volume fraction] 35.8 % Low 40.0-52.0 [facility] Comment on above: Performed By: #### L [id number] ####Chief Gauger: LYNDSEY [id number])[facility] ([facility])[address] [place] [address] Hemoglobin (Bld) [Mass/Vol] 11.6 g/dL Low 13.0-18.0 [facility] Comment on above: Performed By: #### L [id number] ####Chief Gauger: LYNDSEY NICOLE ([phone])[facility])[address] [place] [address] MCH (RBC) [Entitic mass] 30.9 pg Normal 26.0-34.0 [facility] Comment on above: Performed By: #### L [id number] ####Chief Gauger: LYNDSEY NICOLE ([phone])[facility])[address] [place] [address] MCHC 32.4 % Normal 30.5-36.0 [facility] Comment on above: Performed By: #### L [id number] ####Chief Gauger: LYNDSEY NICOLE ([id number])[facility] ([facility])[address] [place] [address] MCV (RBC) [Entitic vol] 95.5 fL Normal 77.0-99.0 [facility] Comment on above: Performed By: #### L [id number] ####Chief Gauger: LYNDSEY NICOLE ([id number])[facility])[address] [place] [address] Platelet mean volume (Bld) [Entitic vol] 9.5 fL Normal 9.0-12.7 [facility] Comment on above: Performed By: #### L [id number] ####Chief Gauger: LYNDSEY NICOLE ([phone])[facility] ([facility])[address] [place] [address] Platelets (Bld) [#/Vol] 101 10*3/uL Low 140-440 [facility] Comment on above: Performed By: #### L [id number] ####Chief Gauger: LYNDSEY NICOLE ([phone])[facility])[address] [place] [address] RBC (Bld) [#/Vol] 3.75 10*6/uL Low 4.40-5.90 [facility] Comment on above: Performed By: #### L [id number] ####Chief Gauger: LYNDSEY NICOLE ([id number])[facility] ([facility])[address] [place] [address] WBC (Bld) [#/Vol] 6.5 10*3/uL Normal 3.6-10.7 [facility] Comment on above: Performed By: #### L [id number] ####Chief Gauger: LYNDSEY NICOLE ([phone])[facility] [place] [address] CBC panel Auto (Bld)on 11-26 Erythrocyte distribution width (RBC) [Ratio] 13.1 % 11.5 - 15.0 % [facility] Hematocrit (Bld) [Volume fraction] 35.8 % Low 40.0 - 52.0 % [facility] Hemoglobin (Bld) [Mass/Vol] 11.6 g/dL Low 13.0 - 18.0 g/dL [facility] Interpretation and review of laboratory results Abnormal [facility] MCH (RBC) [Entitic mass] 30.9 pg 26.0 - 34.0 pg [facility] MCHC (RBC) [Mass/Vol] 32.4 % 30.5 - 36.0 % [facility] MCV (RBC) [Entitic vol] 95.5 fL 77.0 - 99.0 fL [facility] Platelet mean volume (Bld) [Entitic vol] 9.5 fL 9.0 - 12.7 fL [facility] Platelets (Bld) [#/Vol] 101 10*3/uL Low 140 - 440 10*3/uL [facility] RBC (Bld) [#/Vol] 3.75 10*6/uL Low 4.40 - 5.9 0 10*6/uL [facility] WBC (Bld) [#/Vol] 6.5 10*3/uL 3.6 - 10.7 10*3/uL [facility] COMPREHENSIVE METABOLIC PANE Jase 11-26-2024 Albumin [Mass/Vol] 3.4 g/dL Normal 3.4-4.8 [facility] Comment on above: Performed By: #### L [id number], LAB17, NFX125, [id number] ####Chief Gauger: LYNDSEY NICOLE ([phone])[facility] ([facility])[address] [place] [address] ALP [Catalytic activity/Vol] 81 U/L Normal 40-150 [facility] Comment on above: Performed By: #### L [id number], LAB17, [id number], [id number] ####Chief Gauger: LYNDSEY NICOLE ([phone])[facility] ([facility])[address] [place] [address] ALT [Catalytic activity/Vol] 10 U/L Normal <40 [facility] Comment on above: Performed By: #### Jin [id number], LAB17, [id number], FEP230 ####Chief Gauger: LYNDSEY NICOLE ([id number])[facility] ([facility])[address] [place] [address] Anion gap [Moles/Vol] 4 mmol/L Normal 3-13 [facility] Comment on above: Performed By: #### L [id number], LAB17, ODM396, BHD024 ####Chief Gauger: LYNDSEY NICOLE ([id number])[facility] ([facility])[address] [place] [address] AST [Catalytic activity/Vol] 25 U/L Normal <34 [facility] Comment on above: Performed By: #### Jin [id number], LAB17, JTU918, [id number] ####Chief Gauger: LYNDSEY NICOLE ([id number])[facility] ([facility])[address] [place] [address] Bilirubin [Mass/Vol] 0.8 mg/dL Normal <1.2 [facility] Comment on above: Performed By: #### L [id number], LAB17, ENK632, UQQ744 ####Chief Gauger: LYNDSEY NICOLE ([id number])[facility] ([facility])[address] [place] [address] Calcium [Mass/Vol] 9.0 mg/dL Normal 8.8-10.0 [facility] Comment on above: Performed By: #### L [id number], LAB17, QIF545, FCM438 ####Chief Gauger: LYNDSEY NICOLE ([id number])[facility] ([facility])[address] [place] [address] Chloride [Moles/Vol] 102 mmol/L Normal 98-107 [facility] Comment on above: Performed By: #### L [id number], LAB17, YZE382, GRL830 ####Chief Gauger: LYNDSEY NICOLE ([id number])[facility] ([facility])[address] [place] [address] CO2 [Moles/Vol] 24 mmol/L Normal 23-31 [facility] Comment on above: Performed By: #### L [id number], LAB17, DIN883, [id number] ####Chief Gauger: LYNDSEY NICOLE ([id number])[facility])[address] [place] [address] Creatinine [Mass/Vol] 3.67 mg/dL High 0.72-1.25 [facility] Comment on above: Performed By: #### L [id number], LAB17, HEM586, ZMU455 ####Chief Gauger: LYNDSEY NICOLE ([phone])[facility] ([facility])[address] [place] [address] GLOMERULAR FILTRATION RATE ML/MIN/1.73 SQ M.PREDICTED 16.2 mL/min/1.73m*2 Low >60.0 [facility] Comment on above: Result Comment: Calc ulation based on the Chronic Kidney Disease Epidemiology Collaboration (CKD-EPI) equation refit without adjustment for race Performed By: #### L [id number], LAB17, VQI330, WWL088 ####Chief Gauger: LYNDSEY NICOLE ([phone])[facility])[address] [place] [address] Glucose [Mass/Vol] 108 mg/dL Normal 82-115 [facility] Comment on above: Performed By: #### L [id number], LAB17, YXT259, EBS823 ####Chief Gauger: LYNDSEY NICOLE ([id number])[facility])[address] [place] [address] Potassium [Moles/Vol] 5.6 mmol/L High 3.5-5.1 [facility] Comment on above: Result Comment: [facility] potassium values may be up to 0.5 mmol/L lower than serum values. Performed By: #### L [id number], LAB17, FDP824, TRS373 ####Chief Gauger: LYNDSEY NICOLE ([phone])[facility] ([facility])[address] [place] [address] Protein [Mass/Vol] 6.5 g/dL Normal 6.4-8.3 [facility] Comment on above: Performed By: #### L [id number], LAB17, NOH363, KBA348 ####Chief Gauger: LYNDSEY NICOLE ([id number])[facility])[address] [place] [address] Sodium [Moles/Vol] 130 mmol/L Low 136-145 [facility] Comment on above: Performed By: #### L [id number], LAB17, SKS835, FQE922 ####Chief Gauger: LYNDSEY NICOLE ([id number])[facility])[address] [place] [address] Urea nitrogen [Mass/Vol] 18 mg/dL Normal 9-23 [facility] Comment on above: Performed By: #### L [id number], LAB17, EWT395, SOM306 ####Chief Gauger: LYNDSEY NICOLE ([id number])[facility])[address] [place] [address] Comprehensive metabolic 1998 panelOrdered By: Maribeth Carlson on 11-26-2024 Albumin [Mass/Vol] 3.4 g/dL 3.4 - 4.8 g/dL [facility] ALP [Catalytic activity/Vol] 81 U/L 40 - 150 U/L [facility] ALT [Catalytic activity/Vol] 10 U/L NINF - 40 U/L [facility] Anion gap [Moles/Vol] 4 mmol/L 3 - 13 mmol/L [facility] AST [Catalytic activity/Vol] 25 U/L NINF - 34 U/L [facility] Bilirubin [Mass/Vol] 0.8 mg/dL NINF - 1.2 mg/dL [facility] Calcium [Mass/Vol] 9 mg/dL 8.8 - 10. 0 mg/dL [facility] Chloride [Moles/Vol] 102 mmol/L 98 - 10 7 mmol/L [facility] CO2 [Moles/Vol] 24 mmol/L 23 - 31 mmol/L [facility] Creatinine [Mass/Vol] 3.67 mg/dL High 0.72 - 1.25 mg/dL [facility] GFR/1.73 sq M.predicted (S/P/Bld) [Vol rate/Area] 16.2 mL/min Low - PINF [facility] Comment on above: Calculation based on the Chronic Kidney Disease Epidemiology Collaboration (CKD-EPI) equation refit without adjustment for race Glucose [Mass/Vol] 108 mg/dL 82 - 115 mg/dL [facility] Interpretation and review of laboratory results Abnormal [facility] Potassium [Moles/Vol] 5.6 mmol/L High 3.5 - 5.1 mmol/L [facility] Comment on above: Plasma potassium carson ues may be up to 0.5 mmol/L lower than serum values. Protein [Mass/Vol] 6.5 g/dL 6.4 - 8.3 g/dL [facility] Sodium [Moles/Vol] 130 mmol/L Low 136 - 145 mmol/L [facility] Urea nitrogen [Mass/Vol] 18 mg/dL 9 - 23 mg/dL [facility] Consulton 11-26-2024 Consult Acknowledges case management consult. Case management will follow for discharge planning. Normal [facility] Consult [facility] Geriatric Medicine Inpatient Consult Service Admission Date: 11/25/2024 Admission Status: INPATIENT Reason for Appointment No chief complaint on file. Geriatrics consulted for rec confusion Assessment Principal Problem: Stroke-like symptoms Active Problems: Stroke-like symptom Plan During this encounter, I spent 55 minutes -Reviewing previous notes, -Reviewing labs, -Obtaining and/or reviewing separately obtained history, -Counseling/educating the patient/family/caregi reyes, -Documenting clinical information in the patients electronic record, -Coordination of care for the patient, and -Performing a medically appropriate exam and/or evaluation. Encephalopathy -Improving. Unclear etiology. Agree with ruling out neurologic event as symptoms do seem to be most consistent with this. Predisposing factors for this patient include: Advanced age, cognitive impairment, end-stage renal disease Precipitating factors for this patient include: Medication effect, medication withdrawal, dialysis, ICU stay - He did not tolerate Precedex. 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 - Agree with continuing gabapentin and lyrica to avoid withdrawal as a contributor to any confusion that he may be having. -Delirium protocol - Continue evidence-based nonpharmacologic interventions for prevention and treatment of delirium: - redirect/reorient/francisco ssure frequently - avoid restraints and instead utilize sitter as needed for safety - early mobilization as medically appropriate, OOB for meals as able - have patient use glasses and hearing aides - use familiar objects (family photos and items from home) - sleep hygiene, limit nighttime care to promote sleep/wake cycle - hydrate and encourage PO intake when medically appropriate - minimize/camouflage lines and tethers as able - minimize narcotics as long as pain is adequately controlled - avoid benzos and anticholinergic medications -Avoid antipsychotics unless patient is a danger to themselves or others. -Encourage PO intake, time up in chair, family visits, supervised ambulation, and sleep hygiene -If agitated, assess for and consider treating for pain -QTc= 438 -Monitor for constipation/urinary retention - Cognitive Impairment -Plan for f/up with [facility]. - He does endorse some worsening memory and his [id number] and other family members endorse concern for his driving. Debility - PT/OT evaluation pending. - May benefit from rehab following admission. Neuropathy -Poorly controlled per his report - Agree with continuing gabapentin and pregabalin to avoid withdrawal. - Agree with renally dosing gabapentin and Neurontin given his diagnosis of end-stage renal disease on hemodialysis. Subjective: HPI 79 y.o. year-old male presented from outside hospital for altered mental status on 11/25/2024 . He was transferred from an outside hospital to [facility]. Per review of history and physical episode of confusion was fairly acute onset following dialysis. CT head showed no acute findings. Diffuse cortical volume loss and chronic small vessel ischemic changes noted. Neurology consulted MRI brain ordered. MRI brain unable to be obtained due to agitation. He was ultimately transferred to the ICU due to persistent confusion and possible need for a Precedex drip. Nephrology was consulted as he is on hemodialysis B12 within normal limits ammonia and troponin within normal limits. His spouse told the ICU team that the evening after dialysis his mental status became altered and persisted into the next morning. EEG showed findings supportive of a moderate to marked global encephalopathy that was nonspecific. No interictal epileptiform activity or seizures observed. He did receive Precedex while in the ICU but became somnolent so this was discontinued. He had noticeable improvement in his mentation while in the ICU and primary team this morning reports that he was following commands and answering simple questions. Further into the day they noted that he became alert and oriented x 4. EEG performed today showed notable improvement on the encephalopathy degree. MRI brain showedno acute intracranial fat lesions probable chronic ischemic and atrophic changes noted. Collateral history obtained from , [id number]. Feels that this memory is slipping away. States that he would not drive if he felt that he was losing the ability to do so. Takes lyrica and gabapentin. States that he takes them togetehr because his doctor felt that the lyrica would enhance the gabapentin effect. He also takes percocet q 8 hours. States that he does not feel that he is getting relief from his current regimen. Wishes that he could take the percocet more frequently. Familky states that he has had other epiisodes of altered (more content not included)... Normal [facility] HIGH SENSITIVITY TROPONIN, S AGA THIRD TESTon 11-26-2024 4H TROPONIN HS (SERIAL 3RD TROPONIN) 16 ng/L Normal <=35 [facility] Comment on above: Result Comment: 4h t roponin (3rd troponin) samples collected between 1h 40 min and 2h and 20 min of the 2h troponin collection time can be utilized to interpret delta troponins as per [facility] algorithms. Samples collected outside this timeframe need to be interpreted clinically. Rising or falling troponin delta between 2 ??? 15 ng/L as compared to 2h troponin value requires further evaluation. Performed By: #### L [id number], LAB17, [id number], [id number] ####Chief Gauger: LYNDSEY NICOLE ([id number])[facility] [place] [address] Laboratory - Chemistry and C hemistry - challengeOrdered By: Glen Rod on 11-26-2024 Base excess Calc (BldV) [Moles/Vol] -1.3000 mmol/L -3.0 - 3.0 mmol/L [facility] CO2 (BldV) [Partial pressure] 46.2 mm[Hg] [facility] CO2 [Moles/Vol] 26 mmol/L 24.0 - 28.0 mmol/L [facility] HCO3 (Bld) [Moles/Vol] 24.6 mmol/L 23.0 - 27.0 mmol/L [facility] Oxygen (BldV) [Partial pressure] 58.4 mm[Hg] mm Hg [facility] pH (BldV) 7.344 [pH] 7.330 - 7.430 [facility] - Chemistry and C hemistry - challengeon 11-26-2024 Glucose [Mass/Vol] 104 mg/dL High 70 - 100 mg/dL [facility] Magnesium [Mass/Vol] 2 mg/dL 1.6 - 2 .6 mg/dL [facility] Glucose [Mass/Vol] 111 mg/dL High 70 - 100 mg/dL [facility] - Hematology and Cell countsOrdered By: Glen Rod on 11-26-2024 Hemoglobin (Bld) [Mass/Vol] 12 g/dL 7.0 g/dl [facility] MAGNESIUMon 11-26-2024 Magnesium [Mass/Vol] 2.0 mg/dL Normal 1.6-2.6 [facility] Comment on above: Result Comment: KP Martínez COMMENTS: Higher values can be expected in females during menses. Performed By: #### L [id number], LAB17, [id number], IFZ901 ####Chief Gauger: LYNDSEY NICOLE ([phone])[facility] ([facility])[address] [place] [address] MR Brain WO contraston 11-26 Radiology Study observation (narrative) [facility] Magnesium [Mass/Vol]on 11-26 Interpretation and review of laboratory results Normal [facility] Higher values can be expected in females during menses. [facility] No Panel Informationon 11-26 Joselito Rehman MD PhD 11/27/2024 1:16 PM [facility] [address] [place] [address] CONTINUOUS LONG-TERM VIDEO EEG MONITORING REPORT Patient Name: Franklin Burton : 1945 Date of Study: 11/26/2024 Duration Recorded: 18:45:43 EEG#: [id number] STAMP MAKER: Alvaro HARDY PROVIDER REQUESTING STUDY: Erasmo Singh DO REASON FOR EXAM: Evaluate for seizures DIAGNOSIS TAG: Encephalopathy NOS (ENC-NOS) HISTORY: Franklin Burton is a 79 y.o. male with history of Franklin is a 79 y.o. male with past medical history below who was transferred from outside hospital for altered mentation. Patient not able to provide any history. Family at bedside. Reported that a few hours after dialysis patient became confused. Not coherent. Family reports having same episodes previously as well after dialysis. Which seems to have improved much earlier rather than this time. No fever. No recent travel no sick contacts family has not noticed any seizures. Patient evaluated at outside hospital and transferred to [facility] for further evaluation management. MEDICATIONS: Current Medications[1] TECHNICAL ASPECTS: This continuous scalp EEG study with video was carried out at [facility]. Scalp electrodes were positioned in person by an cytogenetic technologist, following patient education, according to the 10-20 International system of electrode placement and maintained for integrity and quality of the recording. An abbreviated set of electrodes was placed which included FP1/2, T7/8, C3/4, O1/2, Fz-Cz-Pz. EEG data with video was recorded continuously and digitally stored. The cytogenetic technologist reviewed all automated detections and manual events and prepared the data for archiving and provider review. Referential and bipolar montages were used for review. TECHNOLOGIST NOTES: No skull or scalp defects were observed. This video-EEG monitoring was continuously monitored, 4 patients per technologist. BACKGROUND ACTIVITY: Posterior background activity: A continuous organized 7-8 Hz, 10-25 uV rhythm was seen over the posterior head regions bilaterally. Beta range: Diffuse alpha-beta range activity (8-25 Hz, 10-20 uV) was seen. Sleep: Stage N2 sleep was reached as evidenced by the appearance of vertex waves and sleep spindles seen over the fronto-central head regions bilaterally. Normal Variants: None 09:06:38 -Background activity (Referential to average, LFF=1Hz, HFF=30Hz, Sens=7 uV/mm) SLOWING: Continuous (greater than 90% of the recording) diffuse delta range (6.5-7.5 Hz, 10-35 uV) irregular to semirhythmical slow wave activity was seen non-responsive to stimulation. INTERICTAL EPILEPTIFORM ACTIVITY: No epileptiform activity was seen. ICTAL ACTIVITY: No ictal activity was seen. NON-EPILEPTIC EVENTS: None. ACTIVATION PROCEDURES: Photic stimulation was not performed. Hyperventilation was not performed. IMPRESSION AND ACTIONS TAKEN: This continuous EEG with video is abnormal. Continuous diffuse mild slowing is seen non-responsive to stimulation. Sleep architecture is observed. Posterior dominant rhythms are seen during wakefulness. No interictal epileptiform activity or seizures are observed. The findings are supportive of an improving mild global encephalopathy non-specific as to etiology. Compared with the previous recording, there is a notable improvement on the degree of encephalopathy. Anam Guerrier, PhD Clinical Neurophysiologist Joselito Rehman MD PhD Epilepsy Attending [1] Current Facility-Administered Medications Medication Dose Route Frequency Provider Last Rate Last Admin acetaminophen (Tylenol) tablet 650 mg 650 mg Oral q6h PRN Erasmo Singh DO Or acetaminophen (Tylenol) suppository 650 mg 650 mg Rectal q6h PRN Erasmo Singh DO atorvastatin (Lipitor) tablet 40 mg 40 mg Oral Nightly Erasmo Singh DO azaTHIOprine (Imuran) tablet 50 mg 50 mg Oral Lunch Erasmo Singh DO bisacodyl (Dulcolax) suppository 10 mg 10 mg Rectal Daily PRN Erasmo Singh DO clopidogrel (Plavix) tablet 75 mg 75 mg Oral Daily Erasmo Singh DO 75 mg at 11/26/24 1015 dexmedeTOMIDine in NS (Precedex) 400 mcg in 100 mL (4 mcg/mL) infusion 0.1-1.5 mcg/kg/hr IntraVENous Continuous Erasmo Singh DO Stopped at 11/26/24 0438 dextrose 5 % infusion 100 mL/hr IntraVENous PRN Erasmo Singh DO dextrose 50 % solution 12.5 g 12.5 g IntraVENous PRN Erasmo Singh DO gabapentin (Neurontin) capsule 200 mg 200 mg Oral Nightly Erasmo Singh DO glucagon (human recombinant) injection 1 mg 1 mg IntraMUSCular PRN Erasmo Singh DO gluc (more content not included)... [facility] Interpretation and review of laboratory results Abnormal [facility] Performed by: [facility], [address] [place] [id number] CLIA ID: [id number] [facility] 4h Troponin HS (Serial 3rd Troponin) 16 ng/L NINF - 35 ng/L [facility] Comment on above: 4h troponin (3rd tro ponin) samples collected between 1h 40 min and 2h and 20 min of the 2h troponin collection time can be utilized to interpret delta troponins as per [facility] algorithms. Samples collected outside this timeframe need to be interpreted clinically. Rising or falling troponin delta between 2 15 ng/L as compared to 2h troponin value requires further evaluation. Interpretation and review of laboratory results Normal [facility] Interpretation and review of laboratory results Abnormal [facility] Performed by: [address] [address] CLIA ID: [id number] [facility] No Panel InformationOrdered By: Glen Rod on 11-26-2024 Amount Of Oxygen [facility] Source Of Oxygen Nasal Cannula (LPM) [facility] Assessment of oxygenation is best done with an arterial blood gas determination. Reference ranges for pO2, bicarbonate, and base excess are for mixed venous blood. Specimens drawn from a peripheral vein will often have higher values. [facility] Nursing Noteon 11-26-2024 Nursing Note 2L removed with tx, less than 10min hold time per site, dressing c/d/I 11/26/24 1440 Vital Signs BP 147/77 During Hemodialysis Assessment Blood Flow Rate (mL/min) 400 mL/min Arterial Pressure (mmHg) -140 mmHg Venous Pressure (mmHg) 170 mmHg TMP 70 DFR 500 Intra-Hemodialysis Comments LVSD, HD complpleted, blood rinsed back without diffiuclty, dressing c/d/i Access Visible Yes Hemodialysis Arteriovenous Fistula 11/25/24 Left Upper arm Placement Date/Time: 11/25/24 (c) 1840 Earliest Known Present: 11/25/24 Orientation: Left Access Location: Upper arm AV Fistula Thrill present;Bruit present Site Assessment Clean;Dry;Intact Status Deaccessed Dressing Status Clean, dry & intact Dressing Intervention New dressing Post-Hemodialysis Assessment Post-Treatment Procedures Blood returned;Access bleeding time < 10 minutes Machine Disinfection Process Exterior Machine Disinfection Rinseback Volume (mL) 200 mL Total Liters Processed (L/min) 80.7 L/min Dialyzer Clearance Lightly streaked Hemodialysis Intake (ml) 400 ml Hemodialysis Output (ml) 2400 ml NET Removed (ml) 2000 ml Tolerated Treatment Good Patient Response to Treatment stable condition Physician Notified No Patient Disposition Remain in ICU/ED $ IP Hemodialysis Charge Hemodialysis Normal [facility] PHOSPHORUSon 11-26-2024 Phosphate [Mass/Vol] 2.7 mg/dL Normal 2.3-4.7 [facility] Comment on above: Performed By: #### L [id number], [id number], [id number], [id number] ####Chief Gauger: LYNDSEY NICOLE ([id number])[facility] ([facility])[address] [place] [address] Phosphate [Moles/Vol]on 11-16 Interpretation and review of laboratory results Normal [facility] Phosphate [Mass/Vol] 2.7 mg/dL 2.3 - 4 .7 mg/dL [facility] Progress Noteon 11-26-2024 Progress Note Nutrition Assessment Type and Reason for Visit: Initial Nutrition Recommendations/Plan: Continue with pureed diet. Ordered Magic Cup on lunch and dinner via MNT protocol. Monitor nutritional status. Malnutrition Assessment: Malnutrition Status: Insufficient data Context: Acute Illness Nutrition Assessment: Pt is a 79-year-old male with PMH significant for ESRD on HD, BPH, DMII, obesity, ROYAL, RLS, HFpEF 50% who presented from outside facility with altered mental status. Admitted for neurology evaluation and further work up however patient persistently agitated prohibiting further work up. CT head demonstrated chronic small vessel changes. Metabolic encephalopathy work up including ammonia, troponin, and B12 were normal. Neurology requesting MRI brain, cEEG monitoring however patient unable to cooperate and agitated prohibiting evaluation. Per reports patient treated with ativan however had not received any anti-psychotics while on the floor. ICU consulted for management of agitation. Pt calm this a.m. [employer] evaluated today and recommends a pureed solids and Thin liquids and meds crushed in puree diet; pt is on same. Multiple staff in room, unable to interview pt. Estimated Daily Nutrient Needs: Energy Requirements Based On: Kcal/kg Weight Used for Energy Requirements: [place] Weight for Energy Calculation (kg): 70 kg Total Energy Requirements (kcals/day): 25-30 kcals/kg = 9566-6212 kcals/day Weight Used for Protein Requirements: [place] Weight in Kg Used for Protein Requirements: 70 kg Estimated Total Protein (g/day): 1.1-1.3g protein/kg IBW = 77-91g protein/day Estimated Daily Total Fluid (ml/day): 1750 mls Nutrition Related Findings: Net IO Since Admission: -85.23 mL [11/26/24 1531] Lives with: Spouse/significant other, Children, Orientation Level: Oriented to place, Oriented to time, Oriented to person, Cognition: Follows commands, Best Verbal Response: Oriented, Patient Behaviors/Mood: Calm, Cooperative Teeth: Dentures upper Feeding: Dependent Room Service Room Service: Assist Shawn Scale Score: 15. Gastrointestinal (WDL): Within Defined Limits Edema: Generalized Edema: Non-pitting, RUE Edema: None, LUE Edema: None, RLE Edema: Non-pitting, LLE Edema: Non-pitting Oxygen Therapy: None (Room air), O2 Delivery Method: Nasal cannula, O2 Flow Rate (L/min): 2 L/min Meds reviewed: Scheduled: Scheduled Meds[1] Continuous: Continuous Meds[2] Current Nutrition Therapies: Adult diet Dysphagia - Pureed Current Oral Intake Average Meal Intake: Unable to assess Average Supplements Intake: None Ordered Anthropometric Measures: Height: 172.7 cm (5' 7.99") Current Body Weight: 103 kg (227 lb 1.2 oz) [place] Body Weight (lbs) (Calculated): 154 lbs [place] Body Weight (Kg) (Calculated): 70 kg % [place] Body Weight (Calculated): 147.5 % BMI (kg/m2) (Calculated): 34.5 BMI Categories: Obese Class 1 (BMI 30.0-34.9) Wt Readings from Last 10 Encounters: 11/25/24 103 kg (228 lb) 08/07/23 103 kg (228 lb) 01/09/23 96.6 kg (213 lb) 12/31/22 97.1 kg (214 lb) 12/24/22 97.1 kg (214 lb) 12/16/22 95.3 kg (210 lb) 11/28/21 92.3 kg (203 lb 6.4 oz) 07/25/21 96.6 kg (213 lb) 05/16/21 101 kg (222 lb) 05/16/21 101 kg (222 lb) LABS: Recent Labs 11/25/24 0702 11/26/24 0420 NA 133* 130* K 4.6 5.6* CL 101 102 CO2 27 24 BUN 13 18 CREATININE 3.06* 3.67* GLUCOSE 103 108 CALCIUM 9.2 9.0 MG -- 2.0 PHOS -- 2.7 Cr - elevated, BUN is low for pt on HD, low Na+ Recent Labs 11/25/24 0702 11/26/24 0420 AST 22 25 ALT 13 10 BILITOT 0.6 0.8 ALKPHOS 81 81 TRIG 104 -- Nutrition Diagnosis: Swallowing difficulty related to swallowing difficulty as evidenced by swallow study results Nutrition Interventions: Nutrition Education/Counseling: No recommendation at this time Coordination of Nutrition Care: Continue to monitor while inpatient Goals: Goals: PO intake 50% or greater, by next RD assessment Nutrition Monitoring and Evaluation: Food/Nutrient Intake Outcomes: Food and Nutrient Intake, Supplement Intake Physical Signs/Symptoms Outcomes: Biochemical Data, GI Status, Weight, Skin, Nutrition Focused Physical Findings, Hemodynamic Status, Fluid Status or Edema Discharge Planning: Too soon to determine Yana Pulido RD,LD,CNSC Contact: *[phone] or [facility] Chat [1] atorvastatin, 40 mg, Oral, Nightly azaTHIOprine, 50 mg, Oral, Lunch clopidogrel, 75 mg, Oral, Daily gabapentin, 200 mg, Oral, Nightly heparin, 5,000 Units, SubCUTAneous, 2 times per day metoprolol tartrate, 25 mg, Oral, BID pantoprazole, 40 mg, Oral, Nightly Or pantoprazole (ProtoNix) 40 mg in sodium chloride (PF) 0.9 % 10 mL injection, 40 mg, IntraVENous, Nightly sodium chloride 0.9%, 5-40 mL, IntraVENous, q12h tamsulosin, 0.4 mg, Oral, Daily [2] dexmedeTOMIDine in NS, 0.1-1.5 mcg/kg/hr, Last Rate: Stopped (11/26/24 0438) sodium chloride, 50 mL/hr, Last Rate: 50 mL/hr (0 (more content not included)... Normal [facility] Progress Note General Neurology Follow-up Date of Service: 11/26/2024 Chief complaint: Encephalopathy Subjective: Much improved in mentation today, in the ICU, off the Precedex drip Medications: Scheduled Meds:Scheduled Meds[1] Continuous Infusions:Continuous Meds[2] PRN Meds:PRN Meds[3] Allergies[4] Objective: Exam: BP 143/79 Pulse 90 Temp 36.6 ?C (97.9 ?F) Resp 21 Ht 5' 7.99" (1.727 m) Wt 228 lb (103 kg) SpO2 100% BMI 34.68 kg/m? GENERAL APPEARANCE: Not in distress. HEENT: Normocephalic and atraumatic; PERRL, neck supple. Oropharynx unremarkable. NEURO: MENTAL STATUS: Patient awake but lethargic, he is oriented to self, place, month and the year which is much improved from yesterday. Speech is fluent, with no aphasia or dysarthria CRANIAL NERVES: CN II: Visual field unremarkable CN III, IV, : Pupils equal, round and reactive to light and accommodation; extra ocular movements full and intact. CN V: Facial sensation normal. CN VII: No facial asymmetry. CN IX, X: Palate elevates symmetrically. CN XII: Tongue protrusion midline. MOTOR: Normal bulk. Tone normal and symmetrical throughout. Strength 5/5 in bilateral uppers, 4/5 in bilateral lowers Bicep Tricep Delt Grasp IP Q H DF PF EHL Left Right SENSATION: Sensation grossly intact to fine touch, COORDINATION: [id number] normal for age and symmetric. Data: LABS: Recent Results (from the past 24 hours) Ammonia Collection Time: 11/25/24 12:58 PM Result Value Ref Range AMMONIA 20 18 - 72 umol/L Blood culture Site #1 - Suspected Infection Collection Time: 11/25/24 12:58 PM Specimen: Blood, Venous Result Value Ref Range Blood Culture Blood culture incubation started Transthoracic echocardiogram (TTE) complete with contrast, bubble, strain, and 3D PRN Collection Time: 11/25/24 2:35 PM Result Value Ref Range IVSd 1.0 0.6 - 1.0 cm LVIDd 4.4 4.2 - 5.9 cm LVIDs 3.2 cm LVOT Diameter 2.0 cm LVPWd 0.9 0.6 - 1.0 cm EF BP 50 (A) 55 - 100 % LV Ejection Fraction A2C 44 % LV Ejection Fraction A4C 58 % LV EDV A2C 107 mL LV EDV A4C 156 mL LV EDV BP 129 67 - 155 mL LV ESV A2C 60 mL LV ESV A4C 65 mL LV ESV BP 65 (A) 22 - 58 mL LVOT Cardiac Output 10.1 liter/minute LVOT Peak Gradient 10 mmHg LVOT Mean Gradient 4 mmHg LVOT SV 94.8 ml LVOT Peak Velocity 1.6 m/s LVOT VTI 30.2 cm RV Free Wall Peak S' 22 cm/s LA Diameter 4.8 cm LA Volume A/L 55 mL LA Volume 2C 61 (A) 18 - 58 mL LA Volume 4C 42 18 - 58 mL LA Volume BP 52 18 - 58 mL RA Area 4C 35.5 mL AV Area by Peak Velocity 2.8 cm2 AV Area by VTI 2.7 cm2 AV Peak Gradient 14 mmHg AV Mean Gradient 7 mmHg AV Peak Velocity 1.9 m/s AV Mean Velocity 1.2 m/s AV VTI 36.8 cm LV E' Lateral Velocity 12 cm/s LV E' Septal Velocity 11 cm/s TAPSE 1.9 >=1.7 cm TR Peak Gradient 54 mmHg TR Max Velocity 3.68 m/s Ascending Aorta 3.6 cm Fractional Shortening 2D 27 28 - 44 % LV ESV Index BP 30 mL/m2 LV EDV Index BP 60 mL/m2 LV ESV Index A4C 30 mL/m2 LV EDV Index A4C 72 mL/m2 LV ESV Index A2C 28 mL/m2 LV EDV Index A2C 50 mL/m2 LVIDd Index 2.04 cm/m2 LVIDs Index 1.48 cm/m2 LV RWT Ratio 0.41 LV Mass 2D 137.8 88 - 224 g LV Mass 2D Index 63.8 49 - 115 g/m2 LA Volume Index BP 24 16 - 34 ml/m2 LA Volume Index A/L 25 16 - 34 mL/m2 LVOT Stroke Volume Index 43.9 mL/m2 LVOT Area 3.1 cm2 LA Volume Index 2C 28 16 - 34 mL/m2 LA Volume Index 4C 19 16 - 34 mL/m2 LA Size Index 2.22 cm/m2 Ascending Aorta Index 1.67 cm/m2 AV Velocity Ratio 0.84 LVOT:AV VTI Index 0.82 MELANIE/BSA VTI 1.3 cm2/m2 MELANIE/BSA Peak Velocity 1.3 cm2/m2 Aortic Sinus Valsalva 3.2 cm Aortic Sinus Valsalva Index 1.48 cm/m2 POCT glucose meter Collection Time: 11/26/24 12:32 AM Result Value Ref Range Glucose 111 (H) 70 - 100 mg/dL Troponin, Serial, Third Test Collection Time: 11/26/24 4:20 AM Result Value Ref Range 4h Troponin HS (Serial 3rd Troponin) 16 <=35 ng/L Comprehensive metabolic panel Collection Time: 11/26/24 4:20 AM Result Value Ref Range SODIUM 130 (L) 136 - 145 mmol/L POTASSIUM 5.6 (H) 3.5 - 5.1 mmol/L CHLORIDE 102 98 - 107 mmol/L CARBON DIOXIDE 24 23 - 31 mmol/L ANION GAP 4 3 - 13 mmol/L UREA NITROGEN 18 9 - 23 mg/dL CREATININE 3.67 (H) 0.72 - 1.25 mg/dL GLUCOSE 108 82 - 115 mg/dL CALCIUM 9.0 8.8 - 10.0 mg/dL AST (SGOT) 25 <34 U/L ALT 10 <40 U/L ALKALINE PHOSPHATASE 81 40 - 150 U/L ALBUMIN 3.4 3.4 - 4.8 g/dL BILIRUBIN, TOTAL 0.8 <1.2 mg/dL TOTAL PROTEIN 6.5 6.4 - 8.3 g/dL eGFR 16.2 (L) >60.0 mL/min/1.73m*2 CBC Collection Time: 11/26/24 4:20 AM Result Value Ref Range Auto WBC 6.5 3.6 - 10.7 10*3/uL RBC 3.75 (L) 4.40 - 5.90 10*6/uL Hemoglobin 11.6 (L) 13.0 - 18.0 g/dL Hematocrit 35.8 (L) 40.0 - 52.0 % MCV 95.5 77.0 - 99.0 fL MCH 30.9 26.0 - 34.0 pg MCHC 32.4 30.5 - 36.0 % RDW 13.1 11.5 - 15.0 % Platelets 101 (L) 140 - 440 10*3/uL MPV 9.5 9.0 - 12.7 fL Magnesium Collection Time: 11/26/24 (more content not included)... Normal [facility] Progress Note PHYSICAL THERAPY [facility] Name/MRN: Franklin Burton ([id number]) Date: 11/26/2024 Attempt note Pt on iHD. Will re-attempt as able. Andrés Beachaldito, PT Normal [facility] Progress Note Speech-Language Pathology SPEECH LANGUAGE PATHOLOGY [facility] Dysphagia Treatment Note Patient Name: Franklin Burton Evaluation Date: 11/26/2024 Date of : 1945 Admission Date: 11/25/2024 5:45 AM Age: 79 y.o. Room/Bed: T2-/T2 A Subjective Patient lethargic and cooperative. Seen upright in bed. Answers some basic questions with clear vocal quality. Follows all basic commands. Visitors at bedside - spouse and family. Spoke with SEBAS Bolivar who cleared pt for treatment. Current Diet: Dietary Orders (From admission, onward) Start Ordered 11/25/24 0620 NPO diet without enteral medications Diet effective now Comments: May complete swallow screen. Question: Medications? Answer: without enteral medications 11/25/24 0624 Aspiration Precautions: - Upright positioning for all PO intake - Slow rate of intake - Small bites/sips - PO when fully alert - 1:1 Assistance - Single sips Oxygen: Oxygen Therapy: None (Room air) Pain: Pt denies any current pain. PPE Worn: gloves Objective & Assessment Dysphagia Treatment # of Activities: 1 Dysphagia Activity 1: Re-assess swallow function Patient is significantly more co-operative this date, requesting water. Patient's upper denture is loose fitting and patient is agreeable to removal so it can soak in spinneret cleaner. Patient with minimal dried secretions in posterior oral cavity. Oral care with suctioning is provided. Patient complains of mouth pain and pain with swallow - posterior oral cavity does appear slightly red with dry tongue. Patient trials ice chips and thin liquids by spoon, cup sip, and small straw sip. Patient's swallow is slightly effortful, suspect secondary to pain. Patient performs 2-3 swallows per bolus with clinically timely swallow onset. There is no change in vocal quality or cough post swallow. Patient further trials puree bolus. His bolus management is slightly prolonged, but functional with full oral clearance. Patient is appropriate to start a conservative diet at this time. Plan & Recommendations Plan: ST to follow to ensure diet tolerance and advance as able. Continue acute [employer] therapy per initial plan of care and established goals. Recommend Pureed solids and Thin liquids and meds crushed in puree and the following precautions: - Upright positioning for all PO intake - Slow rate of intake - Small bites/sips - 1:1 Assistance - PO only when fully alert - Single sips D/C Recommendations: to be determined Education Education Given: swallowing strategies, diet recommendations Given To: patient, spouse, and RN Response: verbalizes understanding Goals Patient Stated Goal: To have more water. Encounter Problems Encounter Problems (Active) Swallowing Patient will tolerate the least restrictive diet consistency to allow for safe consumption of daily meals (Progressing) Start: 11/25/24 Expected End: 12/09/24 Patient will demonstrate safe swallowing Intervention/techniqu es (Progressing) Start: 11/25/24 Expected End: 12/09/24 Patient will participate in repeat clinical dysphagia evaluation (Completed) Start: 11/25/24 Expected End: 12/09/24 Resolved: 11/26/24 Therapy Time [employer] Individual Minutes Time In: 0848 Time Out: 0903 Minutes: 15 JAILENE Trujillo [facility] Progress Note - Attestation signed by Fawad Ruiz MD at 11/26/2024 4:42 PM I have personally seen the patient and examined along with the resident. I personally obtained the jorge and relevent portions of the history and performed physical exam. I reviewed the chart including MAR, labs, and radiology and agree with the patient's plan of action as discussed with the resident. This note reflects my plan of care as I have edited the note to reflect my findings and my assessment and plan. ROS documentation was reviewed and negative unless otherwise stated in HPI. Chief Complaint: Acute Metabolic encephalopathy Additional pertinent interval history, ROS, and physical exam findings: Patient seen and examined. Awake, alert, remains on precedex 0.6. On cEEG. Non-labored breathing otherwise in no acute distress. Assessment and Plan: Acute Encephalopathy - unclear etiology ESRD on HD MWF Chronic anemia Thrombocytopenia Back pain with neuropathy DMII without hyperglycemia Hx ROYAL Hx RLS HFpEF - Avoid benzodiazepines given concern for worsening delirium - continue precedex for MRI and cEEG evaluation - will need LP in coming days, follow initial studies. - Nephrology following for HD - NeuroCC consulted - NPO pending improvement. - speech eval - PT/OT Code Status: DNR-CCA, ok for intubation Disposition: Remain in ICU for ongoing care Time spent preparing to see the patient, obtaining/reviewing separately obtained history, completing an appropriate medical examination of the patient, ordering medications/tests/pro cedures, documenting clinical information on the EMR, and/or coordinating care is a subsequent visit: 35 minutes (Level II). Fawad Ruiz MD Pulmonary and Critical Care Medicine Attending Pager #[phone] ICU Progress Note Name: Franklin Burton : 1945(79 y.o.) Date: 11/26/24 Team: MICU Attending: Dr. Ruiz Subjective: Hospital Summary: 79 y/o M with PMHx ESRD on iHD, BPH, T2DM, Obesity, ROYAL, RLS, GPA, HFpEF (EF 50% on 11/25/24), chronic back pain with neuropathy who presented to [facility] as a transfer from outside facility for evaluation of AMS. Pt admitted to the hospitalist service with neurology consult. Plan is for EEG and MRI for further evaluation. However, the patient was notably too agitated for these studies to be completed. ICU consulted for admission for control of agitation. Interval Events: This morning, we were paged about the patient being somnolent while on precedex. Precedex was turned off and later in the morning patient was following commands and answering simple questions. He denies any chest pain, shortness of breath, and abdominal pain. He is oriented only to person. Later in the afternoon, he became Aox4. Patients son was in the room and says he his mostly independent at baseline. Able to drive and converse normally with occasional incompressible content. Also, reports that this has happened multiple times post dialysis. Scheduled Meds:Scheduled Meds[1] Continuous Infusions:Continuous Meds[2] Objective: Last Vitals: BP MAP 122/67 (11/26/24699) 84 (11/26/24699) Arterial BP MAP Temp 36.2 ?C (97.1 ?F) (11/26/24 0400) Pulse 67 (11/26/24699) Resp 24 (11/26/24699) SpO2 100 % (11/26/24699) Weight 103 kg (228 lb) (11/25/24 1336) BMI Body mass index is 34.67 kg/m?. I/O: 11/25 699 - 11/26 0559 In: 189.8 [I.V.:189.8] Out: 300 [Urine:300] Ventilator: Oxygen Delivery: O2 Flow Rate (L/min): 2 L/min Invasive Lines / Tubes / Drains: Peripheral IV 11/25/24 Anterior;Distal;Right ;Upper Arm (Active) Number of days: 1 Peripheral IV 11/26/24 Anterior;Distal;Right Forearm (Active) Number of days: 0 Central Line Indication: NA - patient does not have a central line Osorio Indications: Hourly I&Os (Critical Care ONLY) Restraints: NA - patient is not restrained. Wounds: Constitutional: General Appearance [x]WDWN [x]Obese []Cachectic []Thin []Ill Eyes: Inspection of Pupils/Irises Pupils round and react: [x]Yes []No Sclera: []Icteric [x]Non-Icteric Inspection of Conjunctiva/Lids Conjunctiva: []Injected [x]Non-Injected Lids: [x]Intact []Lesion Present ENT/Mouth: External Inspection of ears/nose [] Normal [] Scar/Lesion/Mass Inspection of teeth/lips/gums Dentition: [][place] Teeth []Dentures Lips/Gums: []Intact []Lesion Present Mucosa: [][place] []Moist []Dry Neck: External Appearance Overall Appearance: []Normal []Lesion/Mass/Crepitu s Present Trachea midline: []Yes []No Thyroid []Normal []Enlarged []Tender []Mass []Absent Respiratory: Respiratory effort []Labored [x]Non-Labored [] Mechanically-Ventilat ed Auscultation [x]Clear []Crackl (more content not included)... Normal [facility] Vital signsOrdered By: Rickey Rod on 11-26-2024 Oxygen saturation in Venous blood 87.5 % [facility] 30on 11-25-2024 30 Problem: Knowledge Deficit Goal: Patient/family/caregi reyes demonstrates understanding of disease process, treatment plan, medications, and discharge instructions 11/25/20241616 by Katheryn Wong RN Outcome: Progressing 11/25/2024 1009 by Katheryn Wong RN Outcome: Progressing Problem: Neurological Deficit Goal: Neurological status is stable or improving 11/25/20241616 by Katheryn Wong RN Outcome: Progressing 11/25/2024 1009 by Katheryn Wong RN Outcome: Progressing Problem: Activity Intolerance/Impaired Mobility Goal: Mobility/activity is maintained at optimum level for patient 11/25/20241616 by Katheryn Wong RN Outcome: Progressing 11/25/2024 1009 by Katheryn Wong RN Outcome: Progressing Problem: Potential for Aspiration Goal: Non-ventilated patient's risk of aspiration is minimized 11/25/20247 by Katheryn Wong RN Outcome: Progressing 11/25/2024 1009 by Katheryn Wong RN Outcome: Progressing Normal [facility] 30 Problem: Knowledge Deficit Goal: Patient/family/caregi reyes demonstrates understanding of disease process, treatment plan, medications, and discharge instructions Outcome: Progressing Problem: Neurological Deficit Goal: Neurological status is stable or improving Outcome: Progressing Problem: Activity Intolerance/Impaired Mobility Goal: Mobility/activity is maintained at optimum level for patient Outcome: Progressing Problem: Potential for Aspiration Goal: Non-ventilated patient's risk of aspiration is minimized Outcome: Progressing Normal [facility] AMMONIAon 11-25-2024 Ammonia (P) [Moles/Vol] 20 umol/L Normal 18-72 [facility] Comment on above: Performed By: #### L [id number] ####Chief Gauger: LYNDSEY NICOLE ([phone])[facility])[address] [place] [address] BLOOD CULTUREon 11-25-2024 Bacteria identified Cx Nom (Bld) BLOOD CULTURE Reference No growth at 5 days ORDER COMMENTS: Blood Collection Site: Right Antecubital [ S = SUSCEPTIBLE R = RESISTANT I = INTERMEDIATE S-DD = Susceptible-dose dependent NS = Non-susceptible NO = No Interpretation ] Normal [facility] Comment on above: Performed By: #### L [id number] #### Chief Gauger: LYNDSEY NICOLE ([phone]) [facility]) [address] [place] [address] Bacteria identified Cx Nom (Bld) BLOOD CULTURE Reference No growth at 5 days ORDER COMMENTS: Blood Collection Site: Left Forearm [ S = SUSCEPTIBLE R = RESISTANT I = INTERMEDIATE S-DD = Susceptible-dose dependent NS = Non-susceptible NO = No Interpretation ] Normal [facility] Comment on above: Performed By: #### L [id number] ####Chief Gauger: LYNDSEY NICOLE ([phone])[facility])[address] [place] [address] CBC (HEMOGRAM)on 11-25-2024 Erythrocyte distribution width (RBC) [Ratio] 13.2 % Normal 11.5-15.0 [facility] Comment on above: Performed By: #### L [id number] ####Chief Gauger: LYNDSEY NICOLE ([phone])[facility])[address] [place] [address] Hematocrit (Bld) [Volume fraction] 35.2 % Low 40.0-52.0 [facility] Comment on above: Performed By: #### L [id number] ####Chief Gauger: LYNDSEY NICOLE ([phone])[facility])[address] [place] [address] Hemoglobin (Bld) [Mass/Vol] 11.3 g/dL Low 13.0-18.0 [facility] Comment on above: Performed By: #### L [id number] ####Chief Gauger: LYNDSEY NICOLE ([phone])[facility] ([facility])[address] [place] [address] MCH (RBC) [Entitic mass] 30.8 pg Normal 26.0-34.0 [facility] Comment on above: Performed By: #### L [id number] ####Chief Gauger: LYNDSEY NICOLE ([phone])[facility] ([facility])[address] [place] [address] MCHC 32.1 % Normal 30.5-36.0 [facility] Comment on above: Performed By: #### L [id number] ####Chief Gauger: LYNDSEY NICOLE ([id number])[facility] ([facility])[address] [place] [address] MCV (RBC) [Entitic vol] 95.9 fL Normal 77.0-99.0 [facility] Comment on above: Performed By: #### L [id number] ####Chief Gauger: LYNDSEY NICOLE ([phone])[facility] ([facility])[address] [place] [address] Platelet mean volume (Bld) [Entitic vol] 9.7 fL Normal 9.0-12.7 [facility] Comment on above: Performed By: #### L [id number] ####Chief Gauger: LYNDSEY NICOLE ([phone])[facility] ([facility])[address] [place] [address] Platelets (Bld) [#/Vol] 114 10*3/uL Low 140-440 [facility] Comment on above: Performed By: #### L [id number] ####Chief Gauger: LYNDSEY NICOLE ([phone])[facility] ([facility])[address] [place] [address] RBC (Bld) [#/Vol] 3.67 10*6/uL Low 4.40-5.90 [facility] Comment on above: Performed By: #### L [id number] ####Chief Gauger: LYNDSEY NICOLE ([phone])[facility] ([facility])[address] [place] [address] WBC (Bld) [#/Vol] 6.3 10*3/uL Normal 3.6-10.7 [facility] Comment on above: Performed By: #### L [id number] ####Chief Gauger: LYNDSEY NICOLE ([phone])[facility] ([facility])[address] [place] [address] CBC panel Auto (Bld)on 11-25 Erythrocyte distribution width (RBC) [Ratio] 13.2 % 11.5 - 15.0 % [facility] Hematocrit (Bld) [Volume fraction] 35.2 % Low 40.0 - 52.0 % [facility] Hemoglobin (Bld) [Mass/Vol] 11.3 g/dL Low 13.0 - 18.0 g/dL [facility] Interpretation and review of laboratory results Abnormal [facility] MCH (RBC) [Entitic mass] 30.8 pg 26.0 - 34.0 pg [facility] MCHC (RBC) [Mass/Vol] 32.1 % 30.5 - 36.0 % [facility] MCV (RBC) [Entitic vol] 95.9 fL 77.0 - 99.0 fL [facility] Platelet mean volume (Bld) [Entitic vol] 9.7 fL 9.0 - 12.7 fL [facility] Platelets (Bld) [#/Vol] 114 10*3/uL Low 140 - 440 10*3/uL [facility] RBC (Bld) [#/Vol] 3.67 10*6/uL Low 4.40 - 5.9 0 10*6/uL [facility] WBC (Bld) [#/Vol] 6.3 10*3/uL 3.6 - 10.7 10*3/uL [facility] COMPREHENSIVE METABOLIC PANE Jase 11-25-2024 Albumin [Mass/Vol] 3.7 g/dL Normal 3.4-4.8 [facility] Comment on above: Performed By: #### L [id number], LAB67, LAB18, LAB17 ####Chief Gauger: LYNDSEY NICOLE ([id number])[facility] [place] [address] ALP [Catalytic activity/Vol] 81 U/L Normal 40-150 [facility] Comment on above: Performed By: #### L [id number], LAB67, LAB18, LAB17 ####Chief Gauger: LYNDSEY NICOLE ([phone])[facility] ([facility])[address] [place] [address] ALT [Catalytic activity/Vol] 13 U/L Normal <40 [facility] Comment on above: Performed By: #### L [id number], LAB67, LAB18, LAB17 ####Chief Gauger: LYNDSEY NICOLE ([phone])[facility] ([facility])[address] [place] [address] Anion gap [Moles/Vol] 5 mmol/L Normal 3-13 [facility] Comment on above: Performed By: #### L [id number], LAB67, LAB18, LAB17 ####Chief Gauger: LYNDSEY NICOLE ([phone])[facility] ([facility])[address] [place] [address] AST [Catalytic activity/Vol] 22 U/L Normal <34 [facility] Comment on above: Performed By: #### L [id number], LAB67, LAB18, LAB17 ####Chief Gauger: LYNDSEY NICOLE ([phone])[facility] ([facility])[address] [place] [address] Bilirubin [Mass/Vol] 0.6 mg/dL Normal <1.2 [facility] Comment on above: Performed By: #### L [id number], LAB67, LAB18, LAB17 ####Chief Gauger: LYNDSEY NICOLE ([phone])[facility] ([facility])[address] [place] [address] Calcium [Mass/Vol] 9.2 mg/dL Normal 8.8-10.0 [facility] Comment on above: Performed By: #### L [id number], LAB67, LAB18, LAB17 ####Chief Gauger: LYNDSEY NICOLE ([id number])[facility] ([facility])[address] [place] [address] Chloride [Moles/Vol] 101 mmol/L Normal 98-107 [facility] Comment on above: Performed By: #### L [id number], LAB67, LAB18, LAB17 ####Chief Gauger: LYNDSEY NICOLE ([phone])[facility] ([facility])[address] [place] [address] CO2 [Moles/Vol] 27 mmol/L Normal 23-31 [facility] Comment on above: Performed By: #### L [id number], LAB67, LAB18, LAB17 ####Chief Gauger: LYNDSEY NICOLE ([phone])[facility])[address] [place] [address] Creatinine [Mass/Vol] 3.06 mg/dL High 0.72-1.25 [facility] Comment on above: Performed By: #### L [id number], LAB67, LAB18, LAB17 ####Chief Gauger: LYNDSEY NICOLE ([phone])[facility])[address] [place] [address] GLOMERULAR FILTRATION RATE ML/MIN/1.73 SQ M.PREDICTED 20.1 mL/min/1.73m*2 Low >60.0 [facility] Comment on above: Result Comment: Calc ulation based on the Chronic Kidney Disease Epidemiology Collaboration (CKD-EPI) equation refit without adjustment for race Performed By: #### L [id number], LAB67, LAB18, LAB17 ####Chief Gauger: LYNDSEY NICOLE ([phone])[facility] ([facility])[address] [place] [address] [place] Glucose [Mass/Vol] 103 mg/dL Normal 82-115 [facility] Comment on above: Performed By: #### L [id number], LAB67, LAB18, LAB17 ####Chief Gauger: LYNDSEY NICOLE ([phone])[facility] ([address] Potassium [Moles/Vol] 4.6 mmol/L Normal 3.5-5.1 [facility] Comment on above: Result Comment: [facility] potassium values may be up to 0.5 mmol/L lower than serum values. Performed By: #### L [id number], LAB67, LAB18, LAB17 ####Chief Gauger: LYNDSEY NICOLE ([phone])[facility])[address] [place] [address] Protein [Mass/Vol] 6.8 g/dL Normal 6.4-8.3 [facility] Comment on above: Performed By: #### L [id number], LAB67, LAB18, LAB17 ####Chief Gauger: LYNDSEY NICOLE ([phone])[facility])[address] [place] [address] Sodium [Moles/Vol] 133 mmol/L Low 136-145 [facility] Comment on above: Performed By: #### L [id number], LAB67, LAB18, LAB17 ####Chief Gauger: LYNDSEY NICOLE ([phone])[facility])[address] [place] [address] Urea nitrogen [Mass/Vol] 13 mg/dL Normal 9-23 [facility] Comment on above: Performed By: #### L [id number], LAB67, LAB18, LAB17 ####Chief Gauger: LYNDSEY NICOLE ([phone])[address] HEAD WO IV CONTRASTon CT HEAD WO IV CONTRAST Patient Name: FRANKLIN BURTON : 1945 Exam Date/Time: 11/25/2024 10:53 Procedure: CT HEAD WO IV CONTRAST Ordering Provider: HEBERT HARINOOR Reason For Exam: Neuro deficit, acute, stroke suspected; Seizure, new-onset, no history of trauma EXAM: CT Head Without Intravenous Contrast CLINICAL INDICATION: Neuro deficit, acute, stroke suspected; Seizure, new-onset, no history of trauma TECHNIQUE: Axial computed tomography images of the head/brain without intravenous contrast. This CT exam was performed using one or more of the following dose reduction techniques: automated exposure control, adjustment of the mA and/or kV according to patient size, and/or use of iterative reconstruction technique. COMPARISON: CT sinus study from 12/31/2013. FINDINGS: BRAIN AND EXTRA-AXIAL SPACES: Moderate diffuse cortical volume loss. Chronic small vessel ischemic changes in the bilateral periventricular white matter. No acute intracranial hemorrhage. No midline shift. BONES/JOINTS: Unremarkable. No acute fracture. SOFT TISSUES: Unremarkable. SINUSES: Mild mucosal thickening in the right maxillary sinus. MASTOID AIR CELLS: Unremarkable as visualized. No mastoid effusion. IMPRESSION: 1. No acute intracranial abnormality. 2. Diffuse cortical volume loss and chronic small vessel ischemic changes. Report Dictated on Electronically Signed By: Mehreen Vargas MD Electronically Signed Date/Time: 11/25/2024 11:35 AM EDT Best possible, patient medicated and out of it. Won't hold still Normal [facility] CT Head WO contraston 2024 1. No acute intracranial abnormality. 2. Diffuse cortical volume loss and chronic small vessel ischemic changes. Report Dictated on Electronically Signed By: Mehreen Vargas MD Electronically Signed Date/Time: 11/25/2024 11:35 AM EDT [facility] 1945 [id number] Exam Date/Time: 11/25/2024 10:53 Procedure: CT HEAD WO IV CONTRAST Ordering Provider: HEBERT HARINOOR Reason For Exam: Neuro deficit, acute, stroke suspected; Seizure, new-onset, no history of trauma EXAM: CT Head Without Intravenous Contrast CLINICAL INDICATION: Neuro deficit, acute, stroke suspected; Seizure, new-onset, no history of trauma TECHNIQUE: Axial computed tomography images of the head/brain without intravenous contrast. This CT exam was performed using one or more of the following dose reduction techniques: automated exposure control, adjustment of the mA and/or kV according to patient size, and/or use of iterative reconstruction technique. COMPARISON: CT sinus study from 12/31/2013. FINDINGS: BRAIN AND EXTRA-AXIAL SPACES: Moderate diffuse cortical volume loss. Chronic small vessel ischemic changes in the bilateral periventricular white matter. No acute intracranial hemorrhage. No midline shift. BONES/JOINTS: Unremarkable. No acute fracture. SOFT TISSUES: Unremarkable. SINUSES: Mild mucosal thickening in the right maxillary sinus. MASTOID AIR CELLS: Unremarkable as visualized. No mastoid effusion. [facility] Mehreen Vargas M D - 11/25/2024 [facility] Name: FRANK[facility]UR[facility] 1945 [id number] Exam Date/Time: 11/25/2024 10:53 Procedure: CT HEAD WO IV CONTRAST Ordering Provider: HEBERT HARINOOR Reason For Exam: Neuro deficit, acute, stroke suspected; Seizure, new-onset, no history of trauma EXAM: CT Head Without Intravenous Contrast CLINICAL INDICATION: Neuro deficit, acute, stroke suspected; Seizure, new-onset, no history of trauma TECHNIQUE: Axial computed tomography images of the head/brain without intravenous contrast. This CT exam was performed using one or more of the following dose reduction techniques: automated exposure control, adjustment of the mA and/or kV according to patient size, and/or use of iterative reconstruction technique. COMPARISON: CT sinus study from 12/31/2013. FINDINGS: BRAIN AND EXTRA-AXIAL SPACES: Moderate diffuse cortical volume loss. Chronic small vessel ischemic changes in the bilateral periventricular white matter. No acute intracranial hemorrhage. No midline shift. BONES/JOINTS: Unremarkable. No acute fracture. SOFT TISSUES: Unremarkable. SINUSES: Mild mucosal thickening in the right maxillary sinus. MASTOID AIR CELLS: Unremarkable as visualized. No mastoid effusion. IMPRESSION: 1. No acute intracranial abnormality. 2. Diffuse cortical volume loss and chronic small vessel ischemic changes. Report Dictated on Electronically Signed By: Mehreen Vargas MD Electronically Signed Date/Time: 11/25/2024 11:35 AM EDT [facility] Radiology Study observation (narrative) [facility] alth Cobalamin (Vitamin B12) [Mas s/Vol]on 11-25-2024 Interpretation and review of laboratory results Normal [facility] Comprehensive metabolic 1998 panelon 11-25-2024 Albumin [Mass/Vol] 3.7 g/dL 3.4 - 4.8 g/dL [facility] ALP [Catalytic activity/Vol] 81 U/L 40 - 150 U/L [facility] ALT [Catalytic activity/Vol] 13 U/L NINF - 40 U/L [facility] Anion gap [Moles/Vol] 5 mmol/L 3 - 13 mmol/L [facility] AST [Catalytic activity/Vol] 22 U/L NINF - 34 U/L [facility] Bilirubin [Mass/Vol] 0.6 mg/dL NINF - 1.2 mg/dL [facility] Calcium [Mass/Vol] 9.2 mg/dL 8.8 - 10. 0 mg/dL [facility] Chloride [Moles/Vol] 101 mmol/L 98 - 10 7 mmol/L [facility] CO2 [Moles/Vol] 27 mmol/L 23 - 31 mmol/L [facility] Creatinine [Mass/Vol] 3.06 mg/dL High 0.72 - 1.25 mg/dL [facility] GFR/1.73 sq M.predicted (S/P/Bld) [Vol rate/Area] 20.1 mL/min Low - PINF [facility] Comment on above: Calculation based on the Chronic Kidney Disease Epidemiology Collaboration (CKD-EPI) equation refit without adjustment for race Glucose [Mass/Vol] 103 mg/dL 82 - 115 mg/dL [facility] Potassium [Moles/Vol] 4.6 mmol/L 3.5 - 5.1 mmol/L [facility] Comment on above: Plasma potassium carson ues may be up to 0.5 mmol/L lower than serum values. Protein [Mass/Vol] 6.8 g/dL 6.4 - 8.3 g/dL [facility] Sodium [Moles/Vol] 133 mmol/L Low 136 - 145 mmol/L [facility] Urea nitrogen [Mass/Vol] 13 mg/dL 9 - 23 mg/dL [facility] Consulton 11-25-2024 Consult - Attestation signed by Fawad Ruiz MD at 11/25/2024 8:48 PM Attending Supervising Physician's Attestation Statement for ICU Admission I have personally seen the patient and examined along with the resident. I personally obtained the jorge and relevent portions of the history and performed physical exam. I reviewed the chart including MAR, labs, and radiology and agree with the patient's plan of action as discussed with the resident. This note reflects my plan of care as I have edited the note to reflect my findings and my assessment and plan. ROS documentation was reviewed and negative unless otherwise stated in HPI. Chief Complaint: Acute Metabolic Encephalopathy Additional pertinent history, ROS, and physical exam findings: 79 yo M PMH ESRD on HD, BPH, DMII, obesity, ROYAL, RLS, HFpEF 50% who presented from outside facility with altered mental status. Admitted for neurology evaluation and further work up however patient persistently agitated prohibiting further work up. CT head demonstrated chronic small vessel changes. Metabolic encephalopathy work up including ammonia, troponin, and B12 were normal. Neurology requesting MRI brain, cEEG monitoring however patient unable to cooperate and agitated prohibiting evaluation. Per reports patient treated with ativan however had not received any anti-psychotics while on the floor. ICU consulted for management of agitation. Patient seen and examined upon transfer to ICU. Awake, alert, calm. Denies acute complaints. Pleasantly confused but not agitated or aggressive. Non-labored breathing. Physical Exam Constitutional: General Appearance [x]Elderly []Obese []Cachectic []Thin []Ill Eyes: Inspection of Pupils/Irises Pupils round and react: [x]Yes []No Sclera: []Icteric [x]Non-Icteric Inspection of Conjunctiva/Lids Conjunctiva:[]Injecte d [x]Non-Injected Lids: [x]Intact []Lesion Present ENT/Mouth: External Inspection of ears/nose [x] Normal [] Scar/Lesion/Mass Inspection of teeth/lips/gums Dentition:[][place] Teeth []Dentures Lips/Gums:[x]Intact []Lesion Present Mucosa: [x][place] [x]Moist []Dry Neck: External Appearance Overall Appearance:[x]Normal []Lesion/Mass/Crepitu s Present Trachea midline:[x]Yes []No Thyroid [x]Normal []Enlarged []Tender []Mass []Absent Respiratory: Respiratory effort []Labored[x]Non-Labor ed[] Mechanically-Ventilat ed Auscultation [x]Clear[]Crackles[]W heezes[]Rhonchi Cardiovascular: Auscultation Rate: [x]Regular[]Irregular []Tachycardia []Bradycardia Rhythm:[x]Regular []Irregular Murmur:[]Present[x]Ab sent Extremities Peripheral Edema:[]Present [x]Absent Varicosities: []Present []Absent Gastrointestinal: Abdomen Palpation: [x]Soft []Firm[]Tender[x]Non- Tender []Distended [x]Non-distended Mass: []Present [x]Absent Bowel Sounds:[x]Present []Absent Hernia:[]Present []Absent Liver/Spleen:[]Hepato splenomegaly []Organomegaly Absent Musculoskeletal: Inspection of Digits and Nails Cyanosis:[]Present [x]Absent Clubbing:[]Present [x]Absent Ischemia:[]Present [x]Absent Infection:[]Present [x]Absent Extremities CROOKS Equally: Except ([]RUE []RLE []LUE []LLE) Strength/Tone: Intact and Normal ([x]RUE [x]RLE [x]LUE [x]LLE) Skin: Inspection [x]Normal[]Rash[]Lesi on[]Ulcer Palpation [x]Warm []Cool []Dry []Clammy []Nodules []Induration []Skin-tightening Cap-Refill: [x] <3 sec [] >3 seconds (delayed) Neurologic: GCS EYE: 4 - Opens spontaneously GCS MOTOR: 6 - Obeys commands for movement GCS VERBAL: 4 - Confused Total GCS: 14 [x] Sensation grossly intact Psych: Mental Status Alert:[x]Yes[] No Oriented: []x0 [x]X1[]X2[]x3 Mood/Affect [x]Normal []Flat []Agitated []Depressed []Anxious []Calm []Sedated []NAD Assessment and Plan: Acute Encephalopathy - unclear etiology ESRD on HD MWF Chronic anemia Thrombocytopenia Back pain with neuropathy DMII without hyperglycemia Hx ROYAL Hx RLS HFpEF - Transfer to ICU - Avoid benzodiazepines given concern for worsening delirium - can start precedex for agitation however not requiring as of yet - plan for cEEG monitoring and MRI - will need LP in coming days, follow initial studies. - Nephrology following for HD - NeuroCC consulted - NPO pending improvement. - speech eval - continue home eval Code Status: DNR-CCA, ok for intubation Disposition: Transfer to ICU Time spent preparing to see the patient, obtaining/reviewing separately obtained history, completing an appropriate medical examination of the patient, ordering medications/tests/pro cedures, documenting clinical information on the EMR, and/or coordinating care is an initial visit: 75 minutes (Level III). Fawad Ruiz MD Pulmonary and Critical Care Medicine Attending Pager #[phone] ----- (more content not included)... [facility] Consult Nephrology Consult Note Patient: Franklin Burton Room number: [id number]/[id number] A Date of Admit: 11/25/2024 LOS: 0 days Referring physician: Taylor Weinberg MD Outpatient Armored Car Guard: Tamia [facility] Reason for Consult ESRD on HD Chief complaint: AMS Assessment / Plan Franklin Burton is a 79 y.o. male with a past medical history of ESRD on HD MWF at [facility], GPA, DM type 2, HTN, HFrEF, BPH, GERD, ROYAL, OA, obesity, RLS, neuropathy, who was brought in from OSH due to AMS. Pt had HD yesterday and went home, then woke up agitated, feeling nauseated and confused. Renal plan: 1-ESRD on HD: -will plan for next HD tomorrow -he is on gabapentin, lyrica discontinued -would be careful with hydration, currently on NS @ 50 ml/hr -will obtain records from dialysis facility 2-Anemia: -Hgb 11.3, above goal -hold JENNIFER 3-QAMAR: -last Ca was 9.2 -will check a phosphorus level 4-BP/volume status: -last BP was 168/101 -he is on metoprolol 25 mg bid -TTE ordered -will investigate EDW 5-AMS: -neuro following -MRI planned -critical care consulted 6-ID: -blood cx sent -consider checking urine studies -not on Abs currently -he is on azathioprine Thank you for allowing us to participate in the care of this patient. Please call with any questions. Aleyda Martinez MD [facility] ([facility]) Office phone: [phone] Office fax: [phone] 11/25/2024 History of Present Illness Franklin Burton is a 79 y.o. male with a past medical history of ESRD on HD MWF at [facility], GPA, DM type 2, HTN, HFrEF, BPH, GERD, ROYAL, OA, obesity, RLS, neuropathy, who was brought in from OSH due to AMS. Pt had HD yesterday and went home, then woke up agitated, feeling nauseated and confused. He was brought to [facility], then here to [facility]. Upon transfer here, his temp was 97.7 HR 93 RR 18 BP 154/87 and O2sat 95% on 2 L NC. Neurology was consulted and imaging was obtained. Spouse and family are at bedside this afternoon. They report he has had about 3-4 episodes where this has happened before. Last one was about 1 year ago. This has been the most severe one. They report he was otherwise doing ok over the last several days but complained of severe back pain. They didn't notice any fever or chills. He still makes urine, he didn't have any complaints about urination. Family reports prior hospitalizations this year for prostate issues. They can't comment on new medication changes, they said sister is the one who manages meds and she is out of state. Home Medications: reviewed. Past Medical History Allergic rhinitis BPH (benign prostatic hyperplasia) BPH (benign prostatic hyperplasia) CHF (congestive heart failure) ([facility]) Chronic back pain Chronic kidney disease Chronic systolic heart failure ([facility]) 06/05/2020 Compression fracture spring 2014 T12 Diabetes mellitus without complication ([facility]) ([facility]) 07/24/2016 no diabetes GERD (gastroesophageal reflux disease) [place] (hard of hearing) 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 Hypertension Indwelling Osorio catheter present Obesity ROYAL (obstructive sleep apnea) Osteoarthritis Restless legs syndrome Status post right hip replacement 03/19/2016 Urge incontinence 07/24/2016 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HCC) Past Surgical History CATARACT EXTRACTION Bilateral COLONOSCOPY COLONOSCOPY 01/02/2016 Repeat in 3 years, colon polyps, diverticulosis and internal hemorrhoid COLONOSCOPY 08/24/2017 by Joana Moreno, repeat in 5 years, diverticulosis, internal hemorrhoid EYE SURGERY HIP ARTHROPLASTY Right 02/05/2016 right hip HX AV FISTULA CREATION Left 02/20/2021 JOINT REPLACEMENT KNEE ARTHROSCOPY Left 1988 ORTHOPEDIC SURGERY Left 1989 knee- left knee mensicus arthroscopic surgery PROSTATE BIOPSY 01/11/2014 trus bx- negative RENAL BIOPSY 12/2013 TRANSURETHRAL RESECTION OF PROSTATE 04/06/2020 Button TURP. [place] UPPER GASTROINTESTINAL ENDOSCOPY 01/02/2016 gasttitis, duodentits, GERD with esophagitis UPPER GASTROINTESTINAL ENDOSCOPY 08/22/[address] Bernard, no BE , gastritis, duodenitis and esophagus WISDOM TOOTH EXTRACTION Family History Bleeding Prob Other Diabetes Maternal Grandmother Colon cancer Sister 70.00 Colon cancer Brother Tucker 70.00 Prostate cancer Father Lung cancer Father Heart failure Mother Heart disease Mother Social History Social History[1] Medications Scheduled Meds:Scheduled Meds[2] Continuous Infusions:Continuous Meds[3] Allergies Allergies[4] Review of Systems Unable to obtain Vital Signs Vitals: 11/25/24 0606 11/25/24 1023 11/25/24 1336 BP: 154/87 (!) 168/101 BP Location: Right arm Patient Position: Lying Pulse: 93 97 Resp: 18 20 Temp: 36.5 ?C (97.7 ?F) 36.3 ?C (97.4 ?F) TempSrc: Temporal Temporal SpO2: 95% 94% Weight: 103 kg (228 lb) Height: 1.727 m (5' 8") Wt Readings from Last 3 Enc (more content not included)... Normal [facility] ECG 12-LEADon 11-25-2024 ECG 12-LEAD IMPRESSION: Sinus rhythm Occasional PAC Baseline wander in multiple leads Electronically Signed On 11-25-2024 07:44:47 EDT by Evan Hyman Normal [facility] HBV surface Ab IA Qnon 11-25 Interpretation: <8.0 Non-Reactive 8.0-11.9 Equivocal >= 12.0 Ab Detected Note: If an equivocal result is interpreted, an antibody status is unable to be determined. Collect new specimen if clinically indicated. [facility] HBV surface Ag IA Qlon 11-25 Interpretation and review of laboratory results Normal [facility] HEMOGLOBIN A1Con 11-25-2024 Glucose [Mass/Vol] 120 mg/dL Normal [facility] Comment on above: Result Comment: KP Martínez COMMENTS: HbA1c values of 5.7-6.4 percent indicate an increased risk for developing diabetes mellitus. HbA1c values greater than or equal to 6.5 percent are diagnostic of diabetes mellitus. For diagnosis of diabetes in individuals without unequivocal hyperglycemia, results should be confirmed by repeat testing. Performed By: #### L [id number] ####Chief Gauger: LYNDSEY NICOLE ([id number])[address] HEMOGLOBIN A1C 5.8 %HbA1C High <5.7 [facility] Comment on above: Result Comment: Norm al less than 5.7% Prediabetes 5.7% to 6.4% Diabetes 6.5% or higher --HgbA1C levels may not be accurate in patients who have renal disease, received recent blood transfusions, are anemic, or who have dyshemoglobinemia. Performed By: #### L [id number] ####Chief Gauger: LYNDSEY NICOLE ([id number])[address] HEPATITIS B SURFACE ANTIBODY on 11-25-2024 HEPATITIS B VIRUS SURFACE AB 23.8 mIU/mL Normal [facility] Comment on above: Result Comment: KP R COMMENTS: Interpretation: <8.0 Non-Reactive 8.0-11.9 Equivocal >= 12.0 Ab Detected Note: If an equivocal result is interpreted, an antibody status is unable to be determined. Collect new specimen if clinically indicated. Performed By: #### L [id number], [id number] ####Chief Gauger: LYNDSEY NICOLE ([id number])[address] HEPATITIS B SURFACE ANTIGENo n 11-25-2024 HEPATITIS B VIRUS SURFACE AG Not detected Normal Not Detected [facility] Comment on above: Performed By: #### L [id number], [id number] ####Chief Gauger: LYNDSEY NICOLE ([id number])[facility] ([facility])[address] [place] [address] HIGH SENSITIVITY TROPONIN, S ERIAL BASELINEon 11-25-2024 TROPONIN HS SERIAL BASELINE 5 ng/L Normal <=35 [facility] Comment on above: Result Comment: In i ndividuals presenting with symptoms > 2h, a baseline troponin <= 5 ng/L suggests acute cardiac injury is unlikely and further serial testing is generally not indicated. Performed By: #### L [id number], [id number], LAB18, LAB17 ####Chief Gauger: LYNDSEY NICOLE ([phone])[facility] ([facility])[address] [place] [address] HIGH SENSITIVITY TROPONIN, S ERIAL, SECOND TESTon 11-25-2024 2H TROPONIN HS (SERIAL 2ND TROPONIN) 7 ng/L Normal <=35 [facility] Comment on above: Result Comment: 2h t roponin (2nd troponin) samples collected between 1h 40 min and 2h and 20 min of the baseline collection time can be utilized to interpret delta troponins as per [employer] algorithms. Samples collected outside this timeframe need to be interpreted clinically. Rising or falling troponin delta below 2 ng/L as compared to baseline value suggests that acute cardiac injury is unlikely. Performed By: #### L [id number] ####Chief Gauger: LYNDSEY NICOLE ([id number])[facility] ([facility])[address] [place] [address] LIPID PANELon 11-25-2024 Cholesterol [Mass/Vol] 146 mg/dL Normal <200 [facility] Comment on above: Performed By: #### L [id number], LAB67, LAB18, LAB17 ####Chief Gauger: LYNDSEY NICOLE ([id number])[facility])[address] [place] [address] Cholesterol in HDL [Mass/Vol] 39 mg/dL Low >=60 [facility] Comment on above: Performed By: #### L [id number], LAB67, LAB18, LAB17 ####Chief Gauger: LYNDSEY NICOLE ([id number])[facility])[address] [place] [address] Cholesterol.total/Carol sterol in HDL [Mass ratio] 4 {ratio} Normal [facility] Comment on above: Result Comment: Ref Range: < 3 Low Risk for CHD 3-6 Mod Risk for CHD > 6 High Risk for CHD Performed By: #### L [id number], LAB67, LAB18, LAB17 ####Chief Gauger: LYNDSEY NICOLE ([id number])[facility] ([facility])[address] [place] [address] LOW DENSITY LIPOPROTEIN 86 mg/dL Normal 0-<100 [facility] Comment on above: Performed By: #### Jin [id number], LAB67, LAB18, LAB17 ####Chief Gauger: LYNDSEY NICOLE ([id number])[facility] ([facility])[address] [place] [address] NON-HDL CHOLESTEROL, CALCULATED 107 Normal <130 [facility] Comment on above: Performed By: #### Jin [id number], LAB67, LAB18, LAB17 ####Chief Gauger: LYNDSEY NICOLE ([id number])[facility] ([facility])[address] [place] [address] Triglyceride [Mass/Vol] 104 mg/dL Normal <150 [facility] Comment on above: Performed By: #### Jin [id number], LAB67, LAB18, LAB17 ####Chief Gauger: LYNDSEY NICOLE ([id number])[facility] ([facility])[address] [place] [address] VERY LOW DENSITY LIPOPROTEIN, CALCULATED 21 mg/dL Normal <=30 [facility] Comment on above: Performed By: #### L [id number], LAB67, LAB18, LAB17 ####Chief Gauger: LYNDSEY NICOLE ([id number])[facility])[address] [place] [address] Laboratory - Chemistry and C hemistry - challengeon 11-25-2024 Cobalamin (Vitamin B12) [Mass/Vol] 429 pg/mL 213 - 816 pg/mL [facility] Ammonia (P) [Moles/Vol] 20 umol/L 18 - 72 umol/L [facility] Average glucose Estimated from glycated hemoglobin (Bld) [Mass/Vol] 120 mg/dL [facility] Laboratory - Hematology and Cell countson 11-25-2024 HbA1c (Bld) [Mass fraction] 5.8 % High [facility] Comment on above: Normal less than 5.7 % Prediabetes 5.7% to 6.4% Diabetes 6.5% or higher --HgbA1C levels may not be accurate in patients who have renal disease, received recent blood transfusions, are anemic, or who have dyshemoglobinemia. Laboratory - Microbiology an d Antimicrobial susceptibilityon 11-25-2024 HBV surface Ab IA Qn 23.8 m[IU]/mL mIU/mL [facility] HBV surface Ag IA Ql Not detected Not Detected [facility] Lipid 1996 panelon 5 Cholesterol [Mass/Vol] 146 mg/dL NINF - 200 mg/dL [facility] Cholesterol in HDL [Mass/Vol] 39 mg/dL Low 60 - PINF mg/dL [facility] Cholesterol in LDL [Mass/Vol] 86 mg/dL 0 - <100 [facility] Cholesterol.total/Carol sterol in HDL [Mass ratio] 4 {ratio} [facility] Comment on above: Ref Range: < 3 Low Risk for CHD 3-6 Mod Risk for CHD > 6 High Risk for CHD NON-HDL CHOLESTEROL, CALCULATED 107 NINF - 130 [facility] Triglyceride [Mass/Vol] 104 mg/dL [facility] mg/dL [facility] VERY LOW DENSITY LIPOPROTEIN, CALCULATED 21 mg/dL [facility] - 30 mg/dL [facility] Medical Studenton 11-25-2024 Medical Student - Attestation signed by Nuha Hebert MD at 11/25/2024 1:50 PM (Updated) I have personally performed a face to face diagnostic evaluation on this patient . I have reviewed and agree with the care plan as documented above by my KUSH/resident with exceptions as listed below. 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 The history was obtained by talking to the patient's son and who are at bedside. This is the fourth episode of this happening. Per the son, every time he has this episode, it is worse than the last 1. Between these episodes, he is usually at his baseline. There is also some concern of very slow onset of some memory issues for some time now. Per the son, this always happens after his dialysis and he usually gets better within 48 hours. Yesterday, the patient was in his usual state of health, no fevers, recent sicknesses and drove himself to the dialysis. Followed by this, he came home and laid down to rest. Soon after, started yelling his 's name and he was noticed that he was significantly confused and his speech was not clear. [facility] where he had a CT scan of the head and CT angiogram of the head and neck. He was offered tenecteplase but the family refused given similar episodes in the past. He was then transferred to [facility]. At [facility] on arrival, blood pressure 154/87, blood work showed sodium 133, creatinine 3.06, LDL 86, A1c 5.8. On exam, the patient is stuporous, does open commands and answer me questions, able to tell me his name, states that he is in the hospital, unable to tell me the current year. He is able to follow simple commands. On cranial examination, pupils are equal reactive, extraocular muscle movements are intact, no facial droop, no facial numbness, tongue is midline and palate elevation is symmetric. He has 5/5 strength in bilateral upper extremities, on exam he does have some asterixis but no [id number] dystaxia or dysmetria. No numbness on light touch in his arms or leg. Able to lift both legs antigravity with 4/5 strength bilaterally. Reflexes are 1+ in the uppers, unable to elicit in the lowers. Denies any spine tenderness. Negative Kernig's and Brezinski. 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 There is no clear seizure-like activity but postdialysis disequilibrium syndrome can also cause seizures and we will get a urgent EEG. I have repeated a stat CT head which did not show any significant abnormality. With the possibility it is PRES given he is on Imuran versus toxic metabolic etiologies versus infectious etiology which is less likely but if his symptoms do not start to improve, he might need a spinal tap. Addendum: discussed with primary: will need med rec, I do not recommend both Gabapentin and Lyrica I personally spent [] 25 [x]79 minutes in time for this patient. During that time I performed a face to face diagnostic evaluation of this patient reviewing labs, imaging studies and the electronic medical record; as well as counseling/coordinati ng care and provided discussion regarding diagnostic impressions and the plan of care with the consulting team Nuha Hebert MD INITIAL CONSULT NOTE. STROKE SERVICE Patient Name: Franklin Burton Patient : 1945 Acct: [id number] Date of Admission: 11/25/2024 [facility] PCP: Matilde Noguera MD History of Present Ilness: 79 y.o. male with PMH of granulomatosis with polyangiitis, ESRD on hemodialysis, HTN, neuropathy, and pre-diabetes who presents with the chief Complaint of: altered mental status and confusion following a dialysis session. According to the patient's son, [id number], and , Mr. Burton returned from a routine dialysis session on 11/24 and laid down to rest. Soon after, he began yelling his 's name and was observed having his knees give out to collapse. He did not hit his head but was nauseous, severely confused, and his speech was not clear. At baseline, he speaks fluently with only occasional incomprehensibility of content. He is able to drive himself to and from dialysis appointments but uses a wheelchair and walker to ambulate. The patient was taken to [facility], where the stroke neurologist determined that he was not having any LVO based on CTA and did not need TNK. The team at [facility] felt this may have been related to fluid shift in relation (more content not included)... Normal [facility] No Panel Informationon 11-25 Joselito Rehman MD PhD 11/27/2024 1:15 PM [facility] [address] [place] [address] CONTINUOUS LONG-TERM VIDEO EEG MONITORING REPORT Patient Name: Franklin Burton : 1945 Date of Study: 11/25/2024 Duration Recorded: 02:14:39 EEG#: [id number] STAMP MAKER: Alvaro HARDY PROVIDER REQUESTING STUDY: Erasmo Singh DO REASON FOR EXAM: Evaluate for seizures DIAGNOSIS TAG: Encephalopathy NOS (ENC-NOS) HISTORY: Franklni Burton is a 79 y.o. male with history of Franklin is a 79 y.o. male with past medical history below who was transferred from outside hospital for altered mentation. Patient not able to provide any history. Family at bedside. Reported that a few hours after dialysis patient became confused. Not coherent. Family reports having same episodes previously as well after dialysis. Which seems to have improved much earlier rather than this time. No fever. No recent travel no sick contacts family has not noticed any seizures. Patient evaluated at outside hospital and transferred to [facility] for further evaluation management. MEDICATIONS: Current Medications[1] TECHNICAL ASPECTS: This continuous scalp EEG study with video was carried out at [facility]. Scalp electrodes were positioned in person by an cytogenetic technologist, following patient education, according to the 10-20 International system of electrode placement and maintained for integrity and quality of the recording. An abbreviated set of electrodes was placed which included FP1/2, T7/8, C3/4, O1/2, Fz-Cz-Pz. EEG data with video was recorded continuously and digitally stored. The cytogenetic technologist reviewed all automated detections and manual events and prepared the data for archiving and provider review. Referential and bipolar montages were used for review. TECHNOLOGIST NOTES: No skull or scalp defects were observed. This video-EEG monitoring was continuously monitored, 4 patients per technologist. BACKGROUND ACTIVITY: Posterior background activity: No observable posterior dominant rhythm was seen. Beta range: Diffuse alpha-beta range activity (8-25 Hz, 10-20 uV) was seen, at times reminiscent of sleep architecture. Sleep: No clearcut sleep architecture was observed. Normal Variants: None SLOWING: Continuous (greater than 90% of the recording) diffuse delta range (0.5-7 Hz, 20-45 uV) irregular to semirhythmical slow wave activity is seen These features are non-responsive to stimulation. 21:56:05 -Continuous slowing, generalized + diffuse alpha range activuty (AP Bipolar, LFF=1Hz, HFF=30Hz, Sens=5 uV/mm) INTERICTAL EPILEPTIFORM ACTIVITY: No epileptiform activity was seen. ICTAL ACTIVITY: No ictal activity was seen. NON-EPILEPTIC EVENTS: None. ACTIVATION PROCEDURES: Photic stimulation was not performed. Hyperventilation was not performed. IMPRESSION AND ACTIONS TAKEN: This continuous EEG with video is abnormal. Continuous diffuse moderate to marked slowing is seen non-responsive to stimulation. No interictal epileptiform activity or seizures are observed. The findings are supportive of a mbwtlnwa-ha-gaxupr global encephalopathy non-specific as to etiology. Anam Guerrier, PhD Clinical Neurophysiologist Joselito Rehman MD PhD Epilepsy Attending [1] Current Facility-Administered Medications Medication Dose Route Frequency Provider Last Rate Last Admin acetaminophen (Tylenol) tablet 650 mg 650 mg Oral q6h PRN Erasmo Singh DO Or acetaminophen (Tylenol) suppository 650 mg 650 mg Rectal q6h PRN Erasmo Singh DO atorvastatin (Lipitor) tablet 40 mg 40 mg Oral Nightly Erasmo Singh DO azaTHIOprine (Imuran) tablet 50 mg 50 mg Oral Lunch Erasmo Singh DO bisacodyl (Dulcolax) suppository 10 mg 10 mg Rectal Daily PRN Erasmo Singh DO clopidogrel (Plavix) tablet 75 mg 75 mg Oral Daily Erasmo Yoseph Kabellar, DO dexmedeTOMIDine in NS (Precedex) 400 mcg in 100 mL (4 mcg/mL) infusion 0.1-1.5 mcg/kg/hr IntraVENous Continuous Erasmo Singh DO 15.45 mL/hr at 11/25/242240 0.6 mcg/kg/hr at 11/25/242240 dextrose 5 % infusion 100 mL/hr IntraVENous PRN Erasmo Singh, DO dextrose 50 % solution 12.5 g 12.5 g IntraVENous PRN Erasmo Singh DO gabapentin (Neurontin) capsule 200 mg 200 mg Oral Nightly Erasmo Singh DO glucagon (human recombinant) injection 1 mg 1 mg IntraMUSCular PRN Erasmo Singh DO glucose oral gel 15 g 15 g Oral PRN Erasmo Singh, DO heparin injection 5,000 Units 5,000 Units SubCUTAneous 2 times per day Erasmo Singh DO 5,000 Units at 11/25/242107 labetalol (Normodyne,Trandate) in (more content not included)... [facility] Interpretation and review of laboratory results Normal [facility] 2h Troponin HS (Serial 2nd Troponin) 7 ng/L NINF - 35 ng/L [facility] Comment on above: 2h troponin (2nd tro ponin) samples collected between 1h 40 min and 2h and 20 min of the baseline collection time can be utilized to interpret delta troponins as per [facility] algorithms. Samples collected outside this timeframe need to be interpreted clinically. Rising or falling troponin delta below 2 ng/L as compared to baseline value suggests that acute cardiac injury is unlikely. Interpretation and review of laboratory results Normal [facility] Loree Jamison 11/25/2024 8:39 AM I attempted to complete routine EEG, pt thrashing around in bed, family currently in room and does not feel patient will tolerate testing at this time. Please re-order when patient is more cooperative [facility] Interpretation and review of laboratory results Abnormal [facility] HbA1c values of 5.7-6.4 percent indicate an increased risk for developing diabetes mellitus. HbA1c values greater than or equal to 6.5 percent are diagnostic of diabetes mellitus. For diagnosis of diabetes in individuals without unequivocal hyperglycemia, results should be confirmed by repeat testing. [facility] Sinus rhythm Occasional PAC Baseline wander in multiple leads Electronically Signed On 11-25-2024 07:44:47 EDT by Evan Hyman CV Evan Eden MD - 11/25/2024 IMPRESSION: Sinus rhythm Occasional PAC Baseline wander in multiple leads Electronically Signed On 11-25-2024 07:44:47 EDT by Evan Hyman [facility] Interpretation and review of laboratory results Normal [facility] Troponin HS Serial Baseline 5 ng/L NINF - 35 ng/L [facility] Comment on above: In individuals prese nting with symptoms > 2h, a baseline troponin <= 5 ng/L suggests acute cardiac injury is unlikely and further serial testing is generally not indicated. [facility] Interpretation and review of laboratory results Abnormal [employer] No Panel InformationOrdered By: Evan Hyman on 11-25-2024 P Cosby 68 degrees [facility] Work Phone: WA Interval 185 ms [facility] Work Phone: QRS Cosby 35 degrees [employer] Work Phone: QRSD Interval 83 ms [employer] [facility] Work Phone: QT Interval 347 ms [employer] Work Phone: QTC Interval 438 ms [employer] Work Phone: T Wave Cosby 38 degrees [employer] Work Phone: [facility] Work Phone: Nursing Noteon 11-25-2024 Nursing Note - Attestation signed by Nuha Hebert MD at 11/25/2024 12:43 PM Made aware of the ativan ordered by primary. Told the nurse not to give it and I was informed that it was already given [address] Weinberg after pt seen thrashing about in bed seeming restless. Family reports pt does have restless leg syndrome, and also requested that he have something to aid in his level of comfort. 0843 Dr. Weibnerg stated he would see the patient, and this RN responded "Ok, he is quite uncomfortable so I hope that is soon". 0906 Dr. Weinberg put in for seroquel PO. Patient has been NPO since failing swallow test early this morning. 0907 This RN messaged to educate Dr. Weinberg that pt was NPO, and clarified further that he had failed a swallow test. 0912 Patient continues to thrash in bed, continued restlessness as physicians continue to put orders for imaging in for patient, added Dr. Hebert from neurology to chat so he was aware of situaton and difficulty that would be had getting appropriate imaging considering patient's inability to stay still. 1023 Dr Hernandez states patient should be able to lie flat for a CT. Neuro team was then on the floor and approached this RN asking why he could not have imaging done. This RN again reported patients unresolved psychomotor agitation and restlessness, for which Dr. Weinberg had put in an order for 0.[address] Hernandez had been added to the chat. At this time neuro expressed concern regarding administration of medication, which they unfortunately were not able to advise against administering despite being aware of patient's needs for medication due to discomfort as evidenced by restlessness that has persisted since 0837 AM. Normal [facility] Progress Noteon 11-25-2024 Progress Note I spoke with family at bedside (, adult son, and [id number]) as well as daughter via telephone, all of whom confirm that the patient would want to be DNR-CCA, OK for intubation & ICU transfer. Code status updated. Normal [facility] Progress Note Speech-Language Pathology SPEECH LANGUAGE PATHOLOGY [facility] Bedside Swallow Evaluation Patient Name: Franklin Burton Evaluation Date: 11/25/2024 Date of : 1945 Admission Date: 11/25/2024 5:45 AM Age: 79 y.o. Room[facility]Bed: [facility] IMPRESSION: S/s oropharyngeal dysphagia. No overt clinical s/s pulmonary compromise with PO. Risk factors for aspiration include decreased mentation, previous nausea (none currently), MS changes, ESRD. RECOMMENDATION: Recommend strict NPO with ok for few ice chips per RN for comfort. NON-oral medications. Dysphagia NOMS: Level 2: Individual is not able to swallow safely by mouth for nutrition and hydration, but may take some consistency with consistent maximal cues in a therapy env only. Alternative method of feeding is required. Pt would benefit from skilled acute [employer] services to ensure patient tolerance of the recommended diet, assess for potential diet upgrade, and repeat bedside swallow evaluation. Frequency: 3 days/wk for 2 weeks Barriers: Confusion and decreased mentation Prognosis: fair D/C Recommendations: to be determined Subjective Patient lethargic and cooperative, with increased arousal. Seen upright in bed, after repositioning. Answers few basic questions with hoarse vocal quality. Follows some basic commands. Visitors at bedside - and family. Spoke with SEBAS Campa who cleared pt to be evaluated. Dysphagia History: No history of [employer] services in EMR with retrospective chart review Baseline Diet: Regular diet with thin liquids Current Diet: Dietary Orders (From admission, onward) Start Ordered 11/25/24 0620 NPO diet without enteral medications Diet effective now Comments: May complete swallow screen. Question: Medications? Answer: without enteral medications 11/25/24 0624 Tube Feeding: no Tracheostomy: no Recent Chest Xray/CT of Chest: No results found for this visit on 11/25/24. Oxygen: Oxygen Therapy: None (Room air) Past Medical History: Medical History[1] Past Surgical History: Surgical History[2] Admission Diagnosis: Patient Active Problem List Diagnosis Date Noted Stroke-like symptom 11/25/2024 Stroke-like symptoms 11/25/2024 Allergic rhinitis 08/07/2023 Chronic insomnia 08/07/2023 Chronic maxillary sinusitis 08/07/2023 Nasal obstruction 08/07/2023 Nasal septal perforation 08/07/2023 Sensorineural hearing loss (SNHL), bilateral 08/07/2023 Swelling of upper extremity 08/07/2023 Tinnitus, bilateral 08/07/2023 Tremor 08/07/2023 Malnutrition of mild degree ([facility]) 03/09/2023 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 ([facility]) 03/01/2023 Peritoneal dialysis catheter in situ (CMS/HCC) ([facility]) 03/01/2023 Periumbilical abdominal pain 03/01/2023 Motion sickness 12/24/2022 Arthralgia 12/02/2022 Bronchitis 12/02/2022 Chest pain 12/02/2022 Chronic back pain 12/02/2022 Diarrhea 12/02/2022 Epistaxis 12/02/2022 Fever 12/02/2022 Finding of above normal blood pressure 12/02/2022 Hearing loss 12/02/2022 Heartburn 12/02/2022 Intermittent claudication ([facility]) 12/02/2022 Obesity with body mass index 30 or greater 12/02/2022 Prediabetes 12/02/2022 Restless legs syndrome 12/02/2022 Viral upper respiratory tract infection 12/02/2022 Chronic neuropathic pain 11/28/2022 Pain, unspecified 10/25/2022 Ankle pain 08/29/2022 Other mechanical complication of surgically created arteriovenous fistula, initial encounter ([facility]) 08/21/2022 Coagulation defect, unspecified ([facility]) 08/20/2022 Abnormal echocardiography 08/05/2022 Allergy, unspecified, initial encounter 08/01/2022 Anaphylactic shock, unspecified, initial encounter 08/01/2022 ESRD (end stage renal disease) ([facility]) 08/01/2022 Anemia in chronic kidney disease 07/30/2022 Dialysis patient ([facility]) 07/30/2022 Noninfective gastroenteritis and colitis, unspecified 07/30/2022 Secondary hyperparathyroidism of renal origin ([facility]) 07/30/2022 Chronic systolic heart failure ([facility]) 06/03/2022 Neuropathy 03/26/2022 Heart failure ([facility]) 03/26/2022 Disease due to severe acute respiratory syndrome coronavirus 2 (SARS-CoV-2) 01/22/2022 Disorder of brain 01/22/2022 Fatigue 01/22/2022 Hyperkalemia 01/22/2022 Stage 3 chronic kidney disease ([facility]) 01/22/2022 Arteriovenous fistula (CMS/HCC) ([facility]) 07/25/2021 Stage 5 chronic kidney disease due to hypertension ([facility]) 02/20/2021 BPH with urinary obstruction 04/06/2020 Zach's granulomatosis with renal involvement ([facility]) 10/27/2019 Gastroesophageal reflux disease 10/21/2019 Hypertension 10/21/2019 Morbidly obese ([facility]) 10/21/2019 Iron deficiency anemia, unspecified 10/21/2019 Obstructive sleep apnea syndrome 10/20/2019 Avascular necrosis of bone of hip ([facility]) ([facility]) 07/09/2019 Abdominal hernia 07/09/2019 Polyneuropathy due to other toxic agents ([facility]) 11/17/2017 Diverticulosis of large intestine without diverticulitis 08/22/2017 BPH (more content not included)... [facility] Progress Note At bedside with family to discuss pt's evolving mental status, agitation, and reports of pain. Pt has chronic muscular back pain with neuropathy for which he is chronically treated with acetaminophen, gabapentin, and pregabalin. Pt is currently NPO and unable to take any of these medications due to his mental status. Given the concern for pt's admitting diagnosis of mental status change and the current wide differentials for etiology of this problem, opiates and benzodiazepines are not a good choice of medications as they may further affect his mentation and alter his course of treatment. I discussed these concerns with the family, who understood the need to allow the patient to wake on his own and our concern for iatrogenically worsening his mental status. I also discussed these concerns with the RN. We decided to try IV acetaminophen for now. We will try a dose of haldol to see if this can facilitate testing to help narrow our diagnosis and therefore treatment plan. EEG and MRI need to be planned accordingly. If this dose of haldol is ineffective, a consult to ICU can be considered so that precedex can be used for sedation without affecting his neuro exam. This plan was discussed in consultation with Dr. Hebert. Kya Mcfarland, FACING CUTTING MACHINE OPERATOR - FURNITURE POLISHER/WHEEL SETTER [facility] US Heart TransthoracicOrdere d By: Jose Arreola on 11-25-2024 Aortic Sinus Valsalva 3.2 cm [facility] [employer] Work Phone: Aortic Sinus Valsalva Index 1.48 cm/m2 [facility] [employer] Work Phone: Aortic valve Mean systole pressure gradient by US.doppler derived full Bernoulli 7 mmHg [facility] Work Phone: Aortic valve Orifice area by US 3.1 cm2 [facility] Work Phone: Aortic valve Peak systolic flow by US.doppler 1.2 m/s [facility] Work Phone: Ascending Aorta 3.6 cm [facility] Work Phone: Ascending Aorta Index 1.67 cm/m2 [facility] Work Phone: AV Area by Peak Velocity 2.8 cm2 [facility] Work Phone: AV Area by VTI 2.7 cm2 [facility] Work Phone: AV Peak Gradient 14 mmHg [facility] Work Phone: AV Peak Velocity 1.9 m/s [facility] Work Phone: AV Velocity Ratio 0.84 [facility]alt Work Phone: AV VTI 36.8 cm [facility] Work Phone: MELANIE/BSA Peak Velocity 1.3 cm2/m2 [facility] Work Phone: MELANIE/BSA VTI 1.3 cm2/m2 [facility] Work Phone: Fractional Shortening 2D 27 % 28 - 44 % [facility] [employer] Work Phone: Interpretation and review of laboratory results Abnormal [facility] Work Phone: IVSd 1 cm 0.6 - 1.0 cm [facility] Work Phone: LA Diameter 4.8 cm [facility] Work Phone: LA Size Index 2.22 cm/m2 [facility] Work Phone: LA Volume 2C 61 mL Abnormal 18 - 58 mL [facility] Work Phone: LA Volume 4C 42 mL 18 - 58 mL [facility] Work Phone: LA Volume A/L 55 mL [facility] Work Phone: LA Volume BP 52 mL 18 - 58 mL [facility] Work Phone: LA Volume Index 2C 28 mL/m2 16 - 34 mL/m2 [facility] Work Phone: LA Volume Index 4C 19 mL/m2 16 - 34 mL/m2 [facility] Work Phone: LA Volume Index A/L 25 mL/m2 16 - 34 mL/m2 [facility] Work Phone: LA Volume Index BP 24 ml/m2 16 - 34 ml/m2 [facility] Work Phone: Left ventricular Ejection fraction by US.2D+Calculated by biplane method of disks 50 % Abnormal 55 - 100 % [facility] Work Phone: LV E' Lateral Velocity 12 cm/s [facility] Work Phone: LV E' Septal Velocity 11 cm/s [facility] Work Phone: LV EDV A2C 107 mL [facility] Work Phone: LV EDV A4C 156 mL [facility] Work Phone: LV EDV BP 129 mL 67 - 155 mL [facility] Work Phone: LV EDV Index A2C 50 mL/m2 [facility] Work Phone: LV EDV Index A4C 72 mL/m2 [facility] Work Phone: LV EDV Index BP 60 mL/m2 [facility] Work Phone: LV Ejection Fraction A2C 44 % [facility] Work Phone: LV Ejection Fraction A4C 58 % [facility] Work Phone: LV ESV A2C 60 mL [facility] Work Phone: LV ESV A4C 65 mL [facility] Work Phone: LV ESV BP 65 mL Abnormal 22 - 58 mL [facility] Work Phone: LV ESV Index A2C 28 mL/m2 [facility] Work Phone: LV ESV Index A4C 30 mL/m2 [facility] Work Phone: LV ESV Index BP 30 mL/m2 [facility] Work Phone: LV Mass 2D 137.8 g 88 - 224 g [facility] Work Phone: LV Mass 2D Index 63.8 g/m2 49 - 115 g/m2 [facility] Work Phone: LV RWT Ratio 0.41 [facility] Work Phone: LVIDd 4.4 cm 4.2 - 5.9 cm [facility] Work Phone: LVIDd Index 2.04 cm/m2 [facility] Work Phone: LVIDs 3.2 cm [facility] Work Phone: LVIDs Index 1.48 cm/m2 [facility] Work Phone: LVOT Cardiac Output 10.1 liter/minute [facility] Work Phone: LVOT Diameter 2 cm [facility] Work Phone: LVOT Mean Gradient 4 mmHg [facility] Work Phone: LVOT Peak Gradient 10 mmHg [facility] Work Phone: LVOT Peak Velocity 1.6 m/s [facility] Work Phone: LVOT Stroke Volume Index 43.9 mL/m2 [facility] Work Phone: LVOT SV 94.8 ml [facility] Work Phone: LVOT VTI 30.2 cm [facility] Work Phone: LVOT:AV VTI Index 0.82 [facility] Work Phone: LVPWd 0.9 cm 0.6 - 1.0 cm [facility] Work Phone: RA Area 4C 35.5 mL [facility] Work Phone: RV Free Wall Peak S' 22 cm/s [facility] Work Phone: TAPSE 1.9 cm 1.7 cm [facility] Work Phone: TR Max Velocity 3.68 m/s [facility] Work Phone: TR Peak Gradient 54 mmHg Rossana Stone [facility] Work Phone: [facility] Work Phone: Heart Transthoracicon Technically difficul t study. Left Ventricle: Left ventricle size is normal. Normal wall thickness. Low normal left ventricular systolic function. EF by 2D Simpsons Biplane is 50%. Normal wall motion. Right Ventricle: Not well visualized. Normal systolic function. Tricuspid Valve: Unable to accurately assess RVSP due to not being able to assess RA pressure. RVSP is at least 57 mmHg. Pulmonary Arteries: Pulmonary artery was not well visualized. Pulmonary hypertension present. Aorta: Normal sized sinuses of Valsalva. Mildly dilated ascending aorta. Ao ascending diameter is 3.6 cm. Left Ventricle Left ventricle size is normal. Normal wall thickness. Low normal left ventricular systolic function. EF by 2D Simpsons Biplane is 50%. Normal wall motion. Indeterminate diastolic function. Right Ventricle Not well visualized. Normal systolic function. Left Atrium Left atrium size is normal (LA volume index 16-34 mL/m2).LA Vol Index is 24 ml/m2. LA Volume Index A/L is 25 mL/m2. Right Atrium Right atrium size is normal. IVC/SVC IVC was not well visualized. Cannot estimate RA pressure due to the IVC not being visualized. Mitral Valve Valve structure is normal. Trace regurgitation. No stenosis noted. Tricuspid Valve Not well visualized. Mild (1+) regurgitation. Unable to accurately assess RVSP due to not being able to assess RA pressure. RVSP is at least 57 mmHg. Aortic Valve Trileaflet. Mildly calcified cusps. Moderate annular calcification. Trace regurgitation. No stenosis. Pulmonic Valve The pulmonic valve was not well visualized. Trace regurgitation. Ascending Aorta Normal sized sinuses of Valsalva. Mildly dilated ascending aorta. Ao ascending diameter is 3.6 cm. Pericardium No pericardial effusion. Septum Interatrial septum was not well visualized. Pulmonary Artery Pulmonary artery was not well visualized. Pulmonary hypertension present. Study Details Image quality: technically difficult. Heart rate: 99 bpm. Blood pressure: 168/101 mmHg. Technical qualifiers: Technically difficult study, technically difficult study with poor endocardial visualization, technically difficult study due to patient's body habitus and procedure performed with the patient in a supine position. Ultrasound enhancement agent was given to enhance imaging. Patient supine and unable to stop moving/shaking throughout exam. Comparison Study There is no prior study available for comparison Echo Additional Conclusions Technically difficult study. CV CPACS VITAMIN B1, WHOLE BLOOD (BKR QUEST)on 11-25-2024 [employer] VITAMIN B1 (THIAMINE), BLOOD, LC/MS/MS 98 nmol/L Normal 78-185 [facility] Comment on above: Result Comment: Vitamin supplementation within 24 hours prior to blood draw may affect the accuracy of the results. This test was developed and its analytical performance characteristics have been determined by [employer] [place], [place]. It has not been cleared or approved by the U.S. Food and Drug Administration. This assay has been validated pursuant to the CLIA regulations and is used for clinical purposes. Test Performed by [facility], [employer] [facility], [address] [place] [address] Jerod Briseno M.D., Ph.D., Director of Laboratories , CLIA [id number] Performed By: #### L [id number] #### [employer] (AMDB[employer]) [address] [place] [address] [facility] VITAMIN B12on 11-25-2024 Cobalamin (Vitamin B12) [Mass/Vol] 429 pg/mL Normal 213-816 [facility] Comment on above: Performed By: #### L [id number], [id number], LAB18, LAB17 ####Chief Gauger: LYNDSEY NICOLE ([id number])[facility] ([address] Vital signsOrdered By: Cherie Hyman on 11-25-2024 Heart rate 96 /min bpm [facility] [employer] Work Phone: XR ABDOMEN 1 VIEWon 11-26-19 25 XR ABDOMEN 1 VIEW Patient Name: FRANKLIN BURTON : 1945 Exam Date/Time: 11/25/2024 10:40 Procedure: XR ABDOMEN 1 VIEW Ordering Provider: WEINBERG LATHA Reason For Exam: MRI clearance EXAM: XR Abdomen, 1 View CLINICAL INDICATION: MRI clearance TECHNIQUE: Frontal supine view of the abdomen/pelvis. COMPARISON: Pelvic radiograph from 02/03/2017 FINDINGS: GASTROINTESTINAL TRACT: Nonobstructive bowel gas pattern. BONES/JOINTS: Right hip arthroplasty. Mild left hip joint DJD. Degenerative change of the lower lumbar spine. Bilateral sacroiliac joint DJD. No acute fracture. IMPRESSION: No findings that preclude MR imaging. Report Dictated on Electronically Signed By: Mehreen Vargas MD Electronically Signed Date/Time: 11/25/2024 12:22 PM EDT [facility] XR Abdomen Single viewon No findings that preclude MR imaging. Report Dictated on Electronically Signed By: Mehreen Vargas MD Electronically Signed Date/Time: 11/25/2024 12:22 PM EDT [facility] Patient Name: FRANKLIN BURTON : 1945 Exam Date/Time: 11/25/2024 10:40 Procedure: XR ABDOMEN 1 VIEW Ordering Provider: WEINBERG LATHA Reason For Exam: MRI clearance EXAM: XR Abdomen, 1 View CLINICAL INDICATION: MRI clearance TECHNIQUE: Frontal supine view of the abdomen/pelvis. COMPARISON: Pelvic radiograph from 02/03/2017 FINDINGS: GASTROINTESTINAL TRACT: Nonobstructive bowel gas pattern. BONES/JOINTS: Right hip arthroplasty. Mild left hip joint DJD. Degenerative change of the lower lumbar spine. Bilateral sacroiliac joint DJD. No acute fracture. [facility] Mehreen Vargas M D - 11/25/2024 Patient Name: FRANKLIN BURTON : 1945 Exam Date/Time: 11/25/2024 10:40 Procedure: XR ABDOMEN 1 VIEW Ordering Provider: WEINBERG LATHA Reason For Exam: MRI clearance EXAM: XR Abdomen, 1 View CLINICAL INDICATION: MRI clearance TECHNIQUE: Frontal supine view of the abdomen/pelvis. COMPARISON: Pelvic radiograph from 02/03/2017 FINDINGS: GASTROINTESTINAL TRACT: Nonobstructive bowel gas pattern. BONES/JOINTS: Right hip arthroplasty. Mild left hip joint DJD. Degenerative change of the lower lumbar spine. Bilateral sacroiliac joint DJD. No acute fracture. IMPRESSION: No findings that preclude MR imaging. Report Dictated on Electronically Signed By: Mehreen Vargas MD Electronically Signed Date/Time: 11/25/2024 12:22 PM EDT [facility] [employer] Radiology Study observation (narrative) [facility] XR Abdomen Single viewOrdere d By: Mehreen Vargas on 11-25-2024 [employer] Work Phone: XR CHEST 1 VIEWon 11-25-2024 XR CHEST 1 VIEW Patient Name: FRANKLIN BURTON : 1945 Exam Date/Time: 11/25/2024 16:04 Procedure: XR CHEST 1 VIEW Ordering Provider: WEINBERG LATHA Reason For Exam: for mri CHEST X-RAY AP CLINICAL INDICATION: MRI clearance AP radiograph of the chest was obtained. COMPARISON: April 25, 2020 FINDINGS: The cardiac silhouette is within normal limits. No focal consolidation or opacification is seen within the lungs. No pleural effusion or pneumothorax is identified. Degenerative changes of the thoracic spine are noted. IMPRESSION: No acute cardiopulmonary process. The patient may proceed with MRI in regards to this exam. Report Dictated on Electronically Signed By: Carlin Esteban MD Electronically Signed Date/Time: 11/25/2024 7:40 PM EDT Normal [facility] XR Chest Single viewon 11-25 No acute cardiopulmonary process. The patient may proceed with MRI in regards to this exam. Report Dictated on Electronically Signed By: Carlin Esteban MD Electronically Signed Date/Time: 11/25/2024 7:40 PM EDT [facility] Patient Name: FRANKLIN BURTON : 1945 Exam Date/Time: 11/25/2024 16:04 Procedure: XR CHEST 1 VIEW Ordering Provider: WEINBERG LATHA Reason For Exam: for mri CHEST X-RAY AP CLINICAL INDICATION: MRI clearance AP radiograph of the chest was obtained. COMPARISON: April 25, 2020 FINDINGS: The cardiac silhouette is within normal limits. No focal consolidation or opacification is seen within the lungs. No pleural effusion or pneumothorax is identified. Degenerative changes of the thoracic spine are noted. [facility] Carlin Esteban MD - 11/25/2024 Patient Name: FRANKLIN BURTON : 1945 Exam Date/Time: 11/25/2024 16:04 Procedure: XR CHEST 1 VIEW Ordering Provider: WEINBERG LATHA Reason For Exam: for mri CHEST X-RAY AP CLINICAL INDICATION: MRI clearance AP radiograph of the chest was obtained. COMPARISON: April 25, 2020 FINDINGS: The cardiac silhouette is within normal limits. No focal consolidation or opacification is seen within the lungs. No pleural effusion or pneumothorax is identified. Degenerative changes of the thoracic spine are noted. IMPRESSION: No acute cardiopulmonary process. The patient may proceed with MRI in regards to this exam. Report Dictated on Electronically Signed By: Carlin Esteban MD Electronically Signed Date/Time: 11/25/2024 7:40 PM EDT [facility] Radiology Study observation (narrative) [facility]th XR Chest Single viewOrdered By: Carlin Esteban on 11-25-2024 [facility] Work Phone: APTTon 11-24-2024 aPTT Coag (Bld) [Time] 24.8 s Low 25.4 - 38.4 J [facility] Comment on above: Performed By: #### [id number] #### [facility],[address] [place] [address] CBC + DIFFon 07-09-2025 Baso # 0.01 x10EE3/UL Normal 0.00 - 0.10 [facility] Comment on above: Performed By: #### [id number] #### [facility],[address] [place] [id number] Basophils/100 WBC (Bld) 0.3 % Normal 0.0 - 2.0 [facility] Comment on above: Performed By: #### 2 [id number] #### [facility],[address] [place] [address] CBC + DIFF Normal [facility] Comment on above: Result Comment: CBC- COMPLETE BLOOD COUNT Performed By: #### 2 [id number] #### [facility],[address] [place] [address] EO # 0.09 x10EE3/UL Normal 0.00 - 0.50 [facility] Comment on above: Performed By: #### 2 [id number] #### [facility],[address] [place] [address] Eosinophils/100 WBC (Bld) 2.7 % Normal 0.0 - 7.0 [facility] Comment on above: Performed By: #### 2 [id number] #### [facility],[address] [place] [address] Erythrocyte distribution width (RBC) [Ratio] 13.0 % Normal 12.0 - 15.6 [facility] Comment on above: Performed By: #### 2 [id number] #### [facility],[address] [place] [address] Hematocrit (Bld) [Volume fraction] 28.3 % Low 40.0 - 52.0 [facility] Comment on above: Performed By: #### 2 73071 #### [facility],[address] [place], [place] [id number] Hemoglobin (Bld) [Mass/Vol] 9.5 g/dL Low 13.0 - 17.5 [facility] Comment on above: Performed By: #### 2 86617 #### [facility],[address] [place] [address] 93952 Lymph # 0.51 x10EE3/UL Low 0.80 - 2.80 [facility] Comment on above: Performed By: #### 2 79987 #### [facility],[address] [place] [address] 61243 Lymphocytes/100 WBC (Bld) 16.0 % Low 20.0 - 45.0 [facility] Comment on above: Performed By: #### 2 21157 #### [facility],[address] [place] [address] MANUAL DIFF N/A Normal [facility] Comment on above: Performed By: #### 2 05231 #### [facility],[address] [place] [address] MCH (RBC) [Entitic mass] 31 pg Normal 27 - 33 [facility] Comment on above: Performed By: #### 2 53123 #### [facility],[address] [place] [address] MCHC 34 X10 3 Normal 32 - 36 [facility] Comment on above: Performed By: #### 2 22828 #### [facility],[address] [place] [address] 55211 MCV (RBC) [Entitic vol] 93 fL Normal 81 - 98 [facility] Comment on above: Performed By: #### 2 18706 #### [facility],[address] [place] [address] 42785 Chippewa # 0.25 x10EE3/UL Normal 0.20 - 1.00 [facility] Comment on above: Performed By: #### 2 87741 #### [facility],[address] [place] [address] 14340 MONOS % 7.9 % Normal 0.0 - 10.0 [facility] Comment on above: Performed By: #### 2 99044 #### [facility],[address] [place] [address] 60375 Morphology Yunior (Bld) [Interp] N/A Normal [facility] Comment on above: Performed By: #### 2 78729 #### [facility],[address] [place] [address] 08990 Neut # 2.36 x10EE3/UL Normal 1.50 - 7.10 [facility] Comment on above: Performed By: #### 2 12004 #### [facility],[address] [place] [address] 44700 Neutrophils/100 WBC (Bld) 73.2 % Normal 46.0 - 76.0 [facility] Comment on above: Performed By: #### 2 93767 #### [facility],[address] [place] [address] 45864 PLATELET 104 x10EE3/UL Low 150 - 450 [facility] Comment on above: Performed By: #### 2 28106 #### [facility],[address] [place] [address] 71446 Platelet mean volume (Bld) [Entitic vol] 7.5 fL Normal 6.4 - 10.5 [facility] Comment on above: Result Comment: AUTO MATED DIFFERENTIAL Performed By: #### 2 92505 #### [facility],[address] [place] [address] 91308 RBC 3.04 x 10EE6/UL Low 4.50 - 6.00 [facility] Comment on above: Performed By: #### 2 39081 #### [facility],[address] [place] [address] 73760 WBC 3.2 x 10EE3/UL Low 4.5 - 10.8 [facility] Comment on above: Performed By: #### 2 89018 #### [facility],[address] [place] [address] 05648 CHEST 1 VIEWon 11-24-2024 CHEST 1 VIEW [place] [address] Patient: FRANKLIN BURTON Phone#: : 1945 Age: 79 Gender: M Pt. Type: ER Account: [id number] Location: [facility] Ordering: DR. JOSÉ MIGUEL HEWITT Exam Date: 11/24/2024/18:19 Family Phys: Charge Code: [id number] Physician: Dimmit Order #: [id number] Dose#: PROCEDURE: X-RAY CHEST 1 VIEW COMPARISON: [facility], XR, CHEST 1 VIEW, 03/14/2023, 20:37. INDICATIONS: Weakness. FINDINGS: LUNGS: Normal. No significant pulmonary parenchymal abnormalities. VASCULATURE: Normal. Unremarkable pulmonary vasculature. CARDIAC: Normal. No cardiac silhouette abnormality or cardiomegaly. MEDIASTINUM: The aorta is ectatic. PLEURA: Normal. No effusion or pleural thickening. BONES: Normal. No fracture or visible bony lesion. OTHER: Negative. CONCLUSION: No acute disease. No significant change has occurred. Dictated by: Davida Lazar MD on 11/24/2024 at 19:19 Approved by: Davida Lazar MD on 11/24/2024 at 19:21 Normal [facility] CMP with eGFRon 11-24-2024 AGE 79 years Normal [facility] Comment on above: Performed By: #### 2 51766 #### [facility],[address] [place] [address] 22960 Albumin [Mass/Vol] 2.8 g/dL Low 3.4 - 5.0 [facility] Comment on above: Performed By: #### 2 07644 #### [facility],[address] [place] [address] 91231 Albumin/Globulin [Mass ratio] 1.0 {ratio} Normal 0.9 - 1.6 [facility] Comment on above: Performed By: #### 2 13870 #### [facility],[address] [place] [address] 81040 ALK PHOS 60 U/L Normal 46 - 116 [facility] Comment on above: Performed By: #### 2 79008 #### [facility],[address] [place] [address] 06495 ALT [Catalytic activity/Vol] 14 U/L Low 16 - 63 [facility] Comment on above: Performed By: #### 2 31575 #### [facility],[address] [place] [address] 10479 Anion gap [Moles/Vol] 8 mmol/L Low 10 - 20 [facility] Comment on above: Performed By: #### 2 75487 #### [facility],[address] [place] [address] 76759 AST [Catalytic activity/Vol] 13 U/L Low 15 - 37 [facility] Comment on above: Performed By: #### 2 97224 #### [facility],[address] [place] [address] 94568 B/C RATIO 4 ratio Normal 0 - 30 [facility] Comment on above: Performed By: #### 2 09590 #### [facility],[address] [place] [address] 08843 Bilirubin [Mass/Vol] 0.3 mg/dL Normal 0.2 - 1.0 [facility] Comment on above: Performed By: #### 2 20048 #### [facility],[address] [place] [address] 76633 Calcium [Mass/Vol] 7.8 mg/dL Low 8.5 - 10.1 [facility] Comment on above: Performed By: #### 2 44227 #### [facility],[address] [place] [address] 21979 Chloride [Moles/Vol] 100 mmol/L Normal 98 - 107 [facility] Comment on above: Performed By: #### 2 21874 #### [facility],[address] [place] [address] 46010 CMP with eGFR Normal [facility] Comment on above: Result Comment: COMP REHENSIVE METABOLIC PANEL Performed By: #### 2 33214 #### [facility],[address] [place] [address] 71678 CO2 [Moles/Vol] 31.8 mmol/L Normal 21.0 - 32.0 [facility] Comment on above: Performed By: #### 2 21979 #### [facility],[address] [place] [address] 74613 Creatinine [Mass/Vol] 2.26 mg/dL High 0.70 - 1.30 [facility] Comment on above: Performed By: #### 2 28047 #### [facility],[address] [place] [address] eGFR 28 ML/MINUTE Low 60 - 999 [facility] Comment on above: Performed By: #### 2 58232 #### [facility],[address] [place] [address] 65475 eGFR(AA) 34 ML/MINUTE Low 60 - 999 [facility] Comment on above: Result Comment: ACCO RDING TO THE NATIONAL KIDNEY DISEASE EDUCATION PROGRAM(NKDE), A NORMAL eGFR IS A VALUE GREATER THAN OR EQUAL TO 60 ML/MIN/1.73 SQ METERS. CHRONIC KIDNEY DISEASE: <60mL/MIN/1.73 SQ METERS KIDNEY FAILURE: <15mL/MIN/1.73 SQ METERS THIS TEST SHOULD ONLY BE USED FOR PATIENTS 18 YEARS OF AGE AND OLDER. Performed By: #### 2 67995 #### [facility],[address] [place] [address] 23596 Globulin (S) [Mass/Vol] 2.8 g/dL Normal 1.5 - 3.8 [facility] Comment on above: Performed By: #### 2 78893 #### [facility],[address] [place] [address] 69619 Glucose [Mass/Vol] 115 mg/dL High 74 - 106 [facility] Comment on above: Performed By: #### 2 17356 #### [facility],[address] [place] [address] 29228 Potassium [Moles/Vol] 4.3 mmol/L Normal 3.5 - 5.1 [facility] Comment on above: Performed By: #### 2 38342 #### [facility],[address] [place] [address] 14000 Protein [Mass/Vol] 5.6 g/dL Low 6.4 - 8.2 [facility] Comment on above: Performed By: #### 2 28664 #### [facility],[address] [place] [address] 86110 Sodium [Moles/Vol] 135 mmol/L Low 136 - 145 [facility] Comment on above: Performed By: #### 2 54755 #### [facility],[address] [place] [address] 79531 Urea nitrogen [Mass/Vol] 9 mg/dL Normal 7 - 18 [facility] Comment on above: Performed By: #### 2 51747 #### [facility],[address] [place] [address] ANGIOGRAPHY HEAD W/CONTRA STon 11-24-2024 CT ANGIOGRAPHY HEAD W/CONTRAST [place] [address] Patient: FRANKLIN BURTON Phone#: : 1945 Age: 79 Gender: M Pt. Type: ER Account: [id number] Location: [facility] Ordering: DR. JOSÉ MIGUEL HEWITT Exam Date: 11/24/2024/17:09 Family Phys: Charge Code: [id number] Physician: Dimmit Order #: [id number] Dose#: 8.1 PROCEDURE: CT ANGIOGRAPHY HEAD WITH CONTRAST COMPARISON: None. INDICATIONS: stroke alert TECHNIQUE: After obtaining the patient's consent, CT images of the head were obtained with non- ionic contrast, and MPR and 3D imaging were created and interpreted to optimize visualization of vascular anatomy. All CT scans at this facility use dose modulation, iterative reconstruction, and/or weight based dosing when appropriate to reduce radiation dose to as low as reasonably achievable. IV CONTRAST: Visipaque 320,70ml TOTAL DOSE: 8.10 CTDIvol(mGy) FINDINGS: VASCULATURE: Normal. No significant stenosis. No visible aneurysm or vascular malformation. VENTRICLES: Normal for age. No enlargement or displacement. CEREBRUM: Normal for age. No excessive atrophy, mass, or hemorrhage, or abnormal enhancement. CEREBELLUM: Normal for age. No excessive atrophy, mass, or hemorrhage, or abnormal enhancement. BRAINSTEM: Normal for age. No excessive atrophy, mass, or hemorrhage, or abnormal enhancement. BASAL CISTERNS: Normal. No subarachnoid hemorrhage or effacement. SKULL: Negative. CONCLUSION: 1. There is no evidence of significant stenosis or aneurysmal dilatation. Dictated by: Davida Lazar MD on 11/24/2024 at 17:57 Approved by: Davida Lazar MD on 11/24/2024 at 18:03 Normal [facility] CT ANGIOGRAPHY [facility] 2024 CT ANGIOGRAPHY [place] [address] Patient: FRANKLIN BURTON Phone#: : 1945 Age: 79 Gender: M Pt. Type: ER Account: [id number] Location: [facility] Ordering: DR. JOSÉ MIGUEL HEWITT Exam Date: 11/24/2024/17:09 Family Phys: Charge Code: [id number] Physician: Dimmit Order #: [id number] Dose#: 8.1 PROCEDURE: CT ANGIOGRAPHY CAROTIDS WITH CONTRAST COMPARISON: None. INDICATIONS: stroke protocol TECHNIQUE: After obtaining the patient's consent, CT images of the neck were obtained with non- ionic intravenous contrast material. MPR/MIPS and 3D images were created to optimize visualization of vascular anatomy. All CT scans at this facility use dose modulation, iterative reconstruction, and/or weight based dosing when appropriate to reduce radiation dose to as low as reasonably achievable. IV CONTRAST: No IV contrast used,ml TOTAL DOSE: CTDIvol(mGy) FINDINGS: LEFT INTERNAL CAROTID: No hemodynamically significant stenosis or dissection. EXTERNAL CAROTID: No hemodynamically significant stenosis or dissection. COMMON CAROTID: No hemodynamically significant stenosis or dissection. Hard plaque is present at the bulb without significant stenosis. VERTEBRAL: No hemodynamically significant stenosis or dissection. Left vertebral artery is dominant. RIGHT INTERNAL CAROTID: No hemodynamically significant stenosis or dissection. EXTERNAL CAROTID: No hemodynamically significant stenosis or dissection. COMMON CAROTID: No hemodynamically significant stenosis or dissection. Hard plaque is present at the bulb without significant stenosis. VERTEBRAL: No hemodynamically significant stenosis or dissection. OTHER: The visualized soft tissues of the neck are also unremarkable. CONCLUSION: Continued Report - Page 2 of 2 Patient: FRANKLIN BURTON Phone#: : 1945 Age: 79 Gender: M Pt. Type: ER Account: [id number] Location: 052 Ordering: DR. JOSÉ MIGUEL HEWITT Exam Date: 11/24/202417:09 Family Phys: Charge Code: [id number] Physician: Dimmit Order #: [id number] Dose#: 8.1 1. Hard plaque is present at the bulb bilaterally. There is no evidence of significant stenosis or aneurysmal dilatation. Dictated by: Davida Lazar MD on 11/24/2024 at 18:03 Approved by: Davida Lazar MD on 11/24/2024 at 18:05 Normal [facility] CT BRAIN W/O CONTRASTon 07-0 CT BRAIN W/O CONTRAST [place] [address] Patient: FRANKLIN BURTON Phone#: : 1945 Age: 79 Gender: M Pt. Type: ER Account: [id number] Location: 052 Ordering: DR. JOSÉ MIGUEL HEIWTT Exam Date: 11/24/2024/17:09 Family Phys: Charge Code: [id number] Physician: Dimmit Order #: [id number] Dose#: 8.20 mGy PROCEDURE: CT BRAIN WITHOUT CONTRAST COMPARISON: None. INDICATIONS: stroke alert TECHNIQUE: CT images were obtained without contrast material. All CT scans at this facility use dose modulation, iterative reconstruction, and/or weight based dosing when appropriate to reduce radiation dose to as low as reasonably achievable. IV CONTRAST: No IV contrast used,0ml TOTAL DOSE: CTDIvol(mGy) FINDINGS: CEREBRUM: Age-appropriate atrophy is present, without visible acute hemorrhage or lesion. CEREBELLUM: No edema, hemorrhage, mass, acute infarction, or inappropriate atrophy. BRAINSTEM: No edema, hemorrhage, mass, acute infarction, or inappropriate atrophy. CSF SPACES: Ventricles, cisterns, and sulci are appropriate for age. No hydrocephalus, subarachnoid hemorrhage, or mass. SKULL: No mass or other significant visible lesion. SINUSES: There is mild mucosal thickening in the ethmoid and maxillary sinuses. ORBITS: Limited views are unremarkable. OTHER: Negative. CONCLUSION: 1. There is no evidence of acute intracranial abnormality. Dictated by: Davida Lazar MD on 11/24/2024 at 17:51 Approved by: Davida Lazar MD on 11/24/2024 at 17:57 Normal [facility] MAGNESIUMon 11-24-2024 Magnesium [Mass/Vol] 1.7 mg/dL Low 1.8 - 2.4 [facility] Comment on above: Performed By: #### 2 98937 #### [facility],[address] [place], [place] [address] PROTHROMBIN TIME AND INRon 0 11-24-2024 INR Coag (PPP) [Relative time] 1.1 {INR} Normal 0.8 - 1.2 [facility] Comment on above: Result Comment: T HE HEMOSIL THROMBOPLASTIN REAGENT USED IN THE PROTHROMBIN TIME TEST INTERACTS WITH THE DRUG CUBICIN (DAPTOMYCIN) AND WILL RESULT IN FALSELY ELEVATED PT / INR RESULTS INR INTERPRETATION INR INDICATION PREVENTION AND TREATMENT OF THROMBOEMBOLISM ASSOCIATED WITH: 2.0 - 3.0 ATRIAL FIBRILLATION, BIOPROSTHETIC HEART VALVES, PULMONARY EMBOLISM, VENOUS THROMBOSIS, SYSTEMIC EMBOLISM POST MYOCARDIAL INFARCTION 2.5 - 3.5 MECHANICAL HEART VALVES Performed By: #### 2 83005 #### [facility],[address] [place] [address] 61436 PROTHROMBIN TIME AND INR Normal [facility] Comment on above: Result Comment: PROT HROMBIN TIME AND INR Performed By: #### 2 39527 #### [facility],[address] [place] [address] 70712 PT-COUMADIN 12.9 sec Normal 9.3 - 14.1 [facility] Comment on above: Performed By: #### 2 40371 #### [facility],[address] [place] [address] 43131 SEDRATEon 11-24-2024 SEDRATE 14 mm/hr Normal 0 - 20 [facility] Comment on above: Performed By: #### 2 99012 #### [facility],[address] [place] [address] 35016 TROPONINon 11-24-2024 HS TROPONIN 8.2 pg/mL Normal 0.0 - 76.2 [facility] Comment on above: Performed By: #### 2 80290 #### [facility],[address] [place], [place] [address] Internal Medicine Office Vis iton 10-15-2024 Internal Medicine Office Visit [facility] [address] [place] [address] [place] [address] OFFICE VISIT Date of Service: 10/15/24 MR#: [id number] Acct: [id number] Name: FRANKLIN BURTON Rep #: [id number] : 1945 Provider: JULIUS Lazo Age/Sex: 79/M Location: [facility] Status: Signed Intake Vital Signs 09/07/24 08:59 10/15/24 13:17 Height 5 ft 8 in 5 ft 8 in Weight: 230 lb 229 lb BMI 34.9 34.8 BP 112/66 134/78 H Blood Pressure Location Rt brachial Rt brachial Position Sitting Sitting Respiration 18 19 H Pulse 74 83 Pulse Source Monitor Monitor Temp 97.6 F L 98.5 F Temp Source Temporal Temporal Pulse Oximetry (%) 98 98 Oxygen Delivery Method room air room air Intake Visit Reasons: ACUTE-ITCHY AREAS ON WRIST/ANKLE Chief Complaint: ACUTE- ITCHY AREAS ON WRIST/ANKLE Is patient in pain?: Yes (5 in feet ) Allergies finasteride Allergy (Intermediate, Verified 09/07/24 08:45) mastodynia aspirin Adverse Reaction (Severe, Verified 09/07/24 08:45) cannot take d/t Zach's Vasculitis Medications ???Medication ???Instructions ???Recorded ???Confirmed ???Type handicap placard #1 ea 08/29/22 10/15/24 Rx handicap placard #1 ea 03/12/23 10/15/24 Rx triamcinolone acetonide 0.1 % 1 applic topical DAILY PRN 4 10/15/24 Rx topical ointment rash/itching #15 grams mirtazapine 15 mg tablet 15 mg PO QHS #90 tabs 06/08/24 Rx omeprazole 40 mg capsule,delayed 40 mg PO DAILY stomach #90 caps 10/15/24 Rx release tamsulosin 0.4 mg capsule 0.8 mg (2 x 0.4 mg) PO QDAY #60 10/15/24 Rx caps metoprolol tartrate 25 mg tablet 25 mg PO DAILY BP #90 tabs 5 10/15/24 Rx oxycodone-acetaminoph en 5 mg-325 1 tab PO Q8H PRN pain 30 days #90 09/28/24 10/15/24 Rx mg tablet (Percocet) tabs pregabalin 25 mg capsule 25 mg PO BID #60 caps 09/28/24 Rx gabapentin 100 mg capsule 200 mg (2 x 100 mg) PO QHS #60 cap s 10/12/24 10/15/24 Rx melatonin 3 mg capsule 3 mg PO HS PRN sleep #30 caps 09/1710/15/24 Rx magna life topical 10/15/24 History Have you fallen in the past year?: No Nurse's Note: pt reports that for the past week he has been having "itchy bumps on left wrist and both ankles" pt states he has tried over the counter medications including benadryl to try to have relief. reports these have been inneffective pt reports that he stopped taking Azathioprine, mirtazapine, calcitrol PFSH Medical History Dialysis patient Wears hearing aid Wears dentures Wears glasses Arthritis Prostate disease Anemia History of renal disease Back pain Gastric reflux Neuropathy History of edema History of CHF (congestive heart failure) History of echocardiogram Normal stress echocardiogram Cardiology follow-up encounter Family history of malignant neoplasm of colon Rheumatoid arthritis GERD (gastroesophageal reflux disease) Former smoker Irregular heart beat Chronic systolic heart failure Hard of hearing Obstructive sleep apnea Zach's granulomatosis BPH (benign prostatic hyperplasia) Chronic kidney disease, stage 3 (moderate) Claudication Prediabetes Essential hypertension History of tobacco use Shortness of breath Chest pain Abnormal stress echo Surgical History Hx of bilateral cataract extraction S/P TURP Cataract extraction status AV fistula History of left heart catheterization (11/12/18) History of endoscopy (01/02/16) History of prostate biopsy (01/11/14) S/P arthroscopic surgery of left knee (1989) H/O arthroscopy of left knee (1988) Status post biopsy of kidney (12/2013) History of total right hip arthroplasty (02/05/16) History of colonoscopy Family History Mother CAD (coronary artery disease) Congestive heart failure Father Prostate cancer Lung cancer Brother Colon cancer Sister Colon cancer Grandmother Diabetes Social History household members: spouse housing: house 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 Normal [place] BUNon 09-10-2024 Urea nitrogen [Mass/Vol] 41 mg/dL High 7 - 18 [facility] Comment on above: Performed By: #### 2 17571 #### [facility],[address] [place] [address] 38787 Urea nitrogen [Mass/Vol] 11 mg/dL Normal [facility] Comment on above: Performed By: #### 2 77764 #### [facility],[address] [place] [address] 76096 CBC + DIFFon 09-10-2024 Baso # 0.01 x10EE3/UL Normal 0.00 - 0.10 [facility] Comment on above: Performed By: #### 2 49929 #### [facility],[address] [place], [place] [address] Basophils/100 WBC (Bld) 0.4 % Normal 0.0 - 2.0 [facility] Comment on above: Performed By: #### 2 97781 #### [facility],[address] [place] [address] CBC + DIFF Normal [facility] Comment on above: Result Comment: CBC- COMPLETE BLOOD COUNT Performed By: #### 2 24923 #### [facility],[address] [place] [address] 25311 CELL COUNT 100 Normal [facility] Comment on above: Performed By: #### 2 22184 #### [facility],[address] [place] [address] 77275 EO 4.0 % Normal 0.0 - 7.0 [facility] Comment on above: Performed By: #### 2 86079 #### [facility],[address] [place] [address] 70508 EO # 0.15 x10EE3/UL Normal 0.00 - 0.50 [facility] Comment on above: Performed By: #### 2 60359 #### [facility],[address] [place] [address] 11133 Eosinophils/100 WBC (Bld) 3.6 % Normal 0.0 - 7.0 [facility] Comment on above: Performed By: #### 2 12562 #### [facility],[address] [place] [address] Erythrocyte distribution width (RBC) [Ratio] 13.7 % Normal 12.0 - 15.6 [facility] Comment on above: Performed By: #### 2 12368 #### [facility],[address] [place] [address] Hematocrit (Bld) [Volume fraction] 34.7 % Low 40.0 - 52.0 [facility] Comment on above: Performed By: #### 2 43372 #### [facility],[address] [place] [address] Hemoglobin (Bld) [Mass/Vol] 11.8 g/dL Low 13.0 - 17.5 [facility] Comment on above: Performed By: #### 2 87585 #### [facility],[address] [place] [address] Lymph # 0.93 x10EE3/UL Normal 0.80 - 2.80 [facility] Comment on above: Performed By: #### 2 05712 #### [facility],[address] [place] [address] Lymphocytes/100 WBC (Bld) 22.0 % Normal 20.0 - 45.0 [facility] Comment on above: Performed By: #### 2 18150 #### [facility],[address] [place] [address] Lymphocytes/100 WBC (Bld) 24 % Normal 20 - 45 [facility] Comment on above: Performed By: #### 2 15632 #### [facility],[address] [place] [address] MANUAL DIFF SEE BELOW Normal [facility] Comment on above: Performed By: #### 2 54268 #### [facility],[address],[place] [address] MCH (RBC) [Entitic mass] 32 pg Normal 27 - 33 [facility] Comment on above: Performed By: #### 2 13106 #### [facility],[address] [place] [address] MCHC 34 X10 3 Normal 32 - 36 [facility] Comment on above: Performed By: #### 2 56618 #### Main [facility],[address] [place] [address] MCV (RBC) [Entitic vol] 93 fL Normal 81 - 98 [facility] Comment on above: Performed By: #### 2 60735 #### [facility],[address] [place] [address] [place]wa # 0.31 x10EE3/UL Normal 0.20 - 1.00 [facility] Comment on above: Performed By: #### 2 65093 #### [facility],[address] [place] [address] 11580 MONOS 7 % Normal 0 - 10 [facility] Comment on above: Performed By: #### 2 77729 #### [facility],[address] [place] [address] 12076 MONOS % 7.4 % Normal 0.0 - 10.0 [facility] Comment on above: Performed By: #### 2 41236 #### [facility],[address] [place], [place] [id number] Morphology Yunior (Bld) [Interp] NORMAL Normal [facility] Comment on above: Performed By: #### 2 11414 #### [facility],[address] [place] [address] Neut # 2.80 x10EE3/UL Normal 1.50 - 7.10 [facility] Comment on above: Performed By: #### 2 68513 #### [facility],[address] [place] [address] Neutrophils/100 WBC (Bld) 66.6 % Normal 46.0 - 76.0 [facility] Comment on above: Performed By: #### 2 49067 #### [facility],[address] [place] [address]25 PLATELET 136 x10EE3/UL Low 150 - 450 [facility] Comment on above: Performed By: #### 2 96336 #### [facility],[address] [place] [address] Platelet mean volume (Bld) [Entitic vol] 8.3 fL Normal 6.4 - 10.5 [facility] Comment on above: Result Comment: AUTO MATED DIFFERENTIAL Performed By: #### 2 63672 #### [facility],[address] [place] [address] RBC 3.74 x 10EE6/UL Low 4.50 - 6.00 [facility] Comment on above: Performed By: #### 2 31954 #### [facility],[address] [place] [address] SEGS 65 % Normal 46 - 76 [facility] Comment on above: Performed By: #### 2 76611 #### [facility],[address] [place] [address] 12077 WBC 4.2 x 10EE3/UL Low 4.5 - 10.8 [facility] Comment on above: Performed By: #### 2 80292 #### [facility],[address] [place] [address] POTASSIUMon 09-10-2024 Potassium [Moles/Vol] 3.7 mmol/L Normal 3.5 - 5.1 [facility] Comment on above: Performed By: #### 2 37914 #### [facility],[address] [place] [address] Laboratory - Hematology and Cell countsOrdered By: Matilde Noguera on 09-07-2024 HbA1c (Bld) [Mass fraction] 6.3 % 4.2-6.3 [facility] Office Vis iton 09-06-2024 Internal Medicine Office Visit [facility] [address] [place] [address] [place] [address] OFFICE VISIT Date of Service: 09/07/24 MR#: [id number] Acct: [id number] Name: FRANKLIN BURTON Rep #: [id number] : 1945 Provider: Dr. Matilde hernandez MD Age/Sex: 79/M Location: [facility] Status: Signed Intake Vital Signs 06/08/24 09:47 09/07/24 08:59 Height 5 ft 8 in 5 ft 8 in Weight: 230 lb BMI 34.9 BP 112/66 Blood Pressure Location Rt brachial Position Sitting Respiration 18 Pulse 74 Pulse Source Monitor Temp 97.6 F L Temp Source Temporal Pulse Oximetry (%) 98 Oxygen Delivery Method room air Intake Visit Reasons: 3 M FU Chief Complaint: f/u Plastic Cutter Required: No Is patient in pain?: No Allergies finasteride Allergy (Intermediate, Verified 09/07/24 08:45) mastodynia aspirin Adverse Reaction (Severe, Verified 09/07/24 08:45) cannot take d/t Zach's Vasculitis Medications ???Medication ???Instructions ???Recorded ???Confirmed ???Type handicap placard #1 ea 08/29/22 09/07/24 Rx handicap placard #1 ea 03/12/23 09/07/24 Rx salicylic acid 6 % topical cream 1 applic topical QHS #454 grams 09/07/24 Rx triamcinolone acetonide 0.1 % 1 applic topical DAILY PRN 4 09/07/24 Rx topical ointment rash/itching #15 grams azathioprine 50 mg tablet 50 mg PO DAILY #30 tabs 02/06/24 0 09/07/24 Rx metoprolol tartrate 25 mg tablet 25 mg PO DAILY BP #90 tabs 4 09/07/24 Rx mirtazapine 15 mg tablet 15 mg PO QHS #90 tabs 06/08/24 Rx omeprazole 40 mg capsule,delayed 40 mg PO DAILY stomach #90 caps 09/07/24 Rx release oxycodone-acetaminoph en 5 mg-325 1 tab PO Q8H PRN pain 30 days #90 08/30/24 09/07/24 Rx mg tablet (Percocet) tabs pregabalin 25 mg capsule 25 mg PO BID #60 caps 08/30/24 Rx tamsulosin 0.4 mg capsule 0.8 mg (2 x 0.4 mg) PO QDAY #60 09/07/24 Rx caps gabapentin 100 mg capsule 200 mg (2 x 100 mg) PO QHS #60 cap s 09/07/24 09/07/24 Rx melatonin 3 mg capsule 3 mg PO HS PRN sleep #30 caps /07/1309/07/24 Rx Have you fallen in the past year?: No Nurse's Note: Pt States he is having a lot of itching all over, off and on for most of his life and it can not be calmed. Pt states there is no rash or visible differences in skin. This episode has been going on for a month now. Has tried a special bath soap to help w/ itching which helps some. He states the itching is worse at night when he lays down. has not tried anithistamine or any creams. Wonders if it is all physcological as his mind wanders. Also states he is waking up frequently and is unable to stay asleep. Even w/ all the meds he is on he is able to get to sleep, but only gets a few hours he states there is not a reason to the nighttime awakenings and is unable to fall back asleep. this has been going on for a long time. He sometimes can get back to sleep w/ an additional percocet but doesn't like to take them if they are not needed and he is not in pain. [facility] Medical History Dialysis patient Wears hearing aid Wears dentures Wears glasses Arthritis Prostate disease Anemia History of renal disease Back pain Gastric reflux Neuropathy History of edema History of CHF (congestive heart failure) History of echocardiogram Normal stress echocardiogram Cardiology follow-up encounter Family history of malignant neoplasm of colon Rheumatoid arthritis GERD (gastroesophageal reflux disease) Former smoker Irregular heart beat Chronic systolic heart failure Hard of hearing Obstructive sleep apnea Zach's granulomatosis BPH (benign prostatic hyperplasia) Chronic kidney disease, stage 3 (moderate) Claudication Prediabetes Essential hypertension History of tobacco use Shortness of breath Chest pain Abnormal stress echo Surgical History Hx of bilateral cataract extraction S/P TURP Cataract extraction status AV fistula History of left heart catheterization (11/12/18) History of endoscopy (01/02/16) History of prostate biopsy (01/11/14) S/P arthroscopic surgery of left knee (1989) H/O arthroscopy of left knee (1988) Status post biopsy of kidney (12/2013) History of total right hip arthroplasty (02/05/16) History of colonoscopy Family History Mother CAD (coronary artery disease) Congestive heart failure Father Prostate cancer Lung cancer Brother Colon cancer Sister Colon cancer Grandmother Diabetes Social History household members: spouse housing: house 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 status: retired [employer] (more content not included)... Normal [facility] total prostate sp ecific antigen (PSA) measurementOrdered By: Kael Decker on 07-20-2024 Prostate Specific Antigen Total 5.52 ng/mL High 0.00-4.00 [facility] Comment on above: This test was perfor med using the [facility] [employer] tPSA method. Measured values of a patient sample can vary depending on the testing procedure used. PSA values determined on patient samples by different testing procedures cannot be used interchangeably. If there is a change in PSA assays while monitoring therapy, sequential testing should be performed to confirm baseline values. PSA,Total- [employer] PSA, DIAGNOSTIC 5.52 ng/mL High 0.00-4.00 [facility] Comment on above: Result Comment: This test was performed using the [facility] [employer] tPSA method. Measured values of a patient??sample can vary depending on the testing procedure used. PSA values determined on patient samples by different testing procedures cannot be used interchangeably. If there is a change in PSA assays while monitoring therapy, sequential testing should be performed to confirm baseline values. Performed By: #### L [phone] #### [facility] [address] [place], [address] Internal Medicine Office Vis iton 06-07-2024 Internal Medicine Office Visit [facility] [address] [place] [address] [place] [address] OFFICE VISIT Date of Service: 06/08/24 MR#: [id number] Acct: [id number] Name: FRANKLIN BURTON Rep #: [id number] : 1945 Provider: Dr. Matilde hernandez MD Age/Sex: 78/M Location: [facility] Status: Signed Intake Vital Signs 03/09/24 09:26 05/04/24 07:26 06/08/24 09:47 Height 5 ft 8 in 5 ft 8 in 5 ft 8 in Weight: 229 lb BMI 34.8 BP 112/78 Blood Pressure Location Rt brachial Position Sitting Respiration 16 Pulse 61 Pulse Source Monitor Temp 96.1 F L Temp Source Temporal Pulse Oximetry (%) 98 Oxygen Delivery Method room air Intake Visit Reasons: 3 M FU Chief Complaint: f/u Plastic Cutter Required: No Accompanied by: Self Is patient in pain?: No Allergies finasteride Allergy (Intermediate, Verified 06/08/24 09:44) mastodynia aspirin Adverse Reaction (Severe, Verified 06/08/24 09:44) cannot take d/t Zach's Vasculitis Medications ???Medication ???Instructions ???Recorded ???Confirmed ???Type handicap placard #1 ea 08/29/22 06/08/24 Rx handicap placard #1 ea 03/12/23 06/08/24 Rx salicylic acid 6 % topical cream 1 applic topical QHS #454 grams 09/09/23 06/08/24 Rx triamcinolone acetonide 0.1 % 1 applic topical DAILY PRN 09/09/23 06/08/24 Rx topical ointment rash/itching #15 grams tamsulosin 0.4 mg capsule 0.8 mg PO QDAY 01/15/24 06/08/24 History azathioprine 50 mg tablet 50 mg PO DAILY #30 tabs 02/06/24 06/08/24 Rx omeprazole 40 mg capsule,delayed 40 mg PO DAILY stomach #90 caps 02/09/24 06/08/24 Rx release metoprolol tartrate 25 mg tablet 25 mg PO DAILY BP #90 tabs 03/09/24 06/08/24 Rx gabapentin 100 mg capsule 200 mg (2 x 100 mg) PO QHS #60 caps 05/19/24 06/08/24 Rx oxycodone-acetaminoph en 5 mg-325 1 tab PO Q8H PRN pain 30 days #90 05/19/24 06/08/24 Rx mg tablet (Percocet) tabs pregabalin 25 mg capsule 25 mg PO BID #60 caps 05/19/24 06/08/24 Rx mirtazapine 15 mg tablet 15 mg PO QHS #90 tabs 06/08/24 06/08/24 Rx Have you fallen in the past year?: No PFSH Medical History Dialysis patient Wears hearing aid Wears dentures Wears glasses Arthritis Prostate disease Anemia History of renal disease Back pain Gastric reflux Neuropathy History of edema History of CHF (congestive heart failure) History of echocardiogram Normal stress echocardiogram Cardiology follow-up encounter Family history of malignant neoplasm of colon Rheumatoid arthritis GERD (gastroesophageal reflux disease) Former smoker Irregular heart beat Chronic systolic heart failure Hard of hearing Obstructive sleep apnea Zach's granulomatosis BPH (benign prostatic hyperplasia) Chronic kidney disease, stage 3 (moderate) Claudication Prediabetes Essential hypertension History of tobacco use Shortness of breath Chest pain Abnormal stress echo Surgical History Hx of bilateral cataract extraction S/P TURP Cataract extraction status AV fistula History of left heart catheterization (11/12/18) History of endoscopy (01/02/16) History of prostate biopsy (01/11/14) S/P arthroscopic surgery of left knee (1989) H/O arthroscopy of left knee (1988) Status post biopsy of kidney (12/2013) History of total right hip arthroplasty (02/05/16) History of colonoscopy Family History Mother CAD (coronary artery disease) Congestive heart failure Father Prostate cancer Lung cancer Brother Colon cancer Sister Colon cancer Grandmother Diabetes Social History household members: spouse housing: house 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 He is up to date on his routine blood work.??? He is up to date on his screening and isn't due for any immunizations. He reports he had his flu shot done at the dialysis center.??? The patient doesn't smoke and does need refills today.??? He reports he is eating healthy.??? He reports his activity level has been low. 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 He follows with nephrology. He is currently doing hemodialysis and tolerating that well. He goes MWF and reports it has been going well. He does still make urine. The pat (more content not included)... Normal [facility] Vis blaine 05-03-2024 Internal Medicine Office Visit [facility] [facility] [place] [address] OFFICE VISIT Date of Service: 05/04/24 MR#: [id number] Acct: [id number] Name: FRANKLIN BURTON Rep #: [id number] : 1945 Provider: Dr. Matilde hernandez MD Age/Sex: 78/M Location: [facility] Status: Signed Intake Vital Signs 04/19/24 15:56 05/04/24 07:26 Height 5 ft 8.11 in 5 ft 8 in Weight: 234 lb BMI 35.6 BP 122/78 H Blood Pressure Location Rt brachial Position Sitting Respiration 20 H Pulse 87 Pulse Source Monitor Temp 97.9 F Temp Source Temporal Pulse Oximetry (%) 99 Oxygen Delivery Method room air Intake Visit Reasons: BAD COUGH Chief Complaint: f/u Plastic Cutter Required: No Is patient in pain?: No Allergies finasteride Allergy (Intermediate, Verified 05/04/24 07:20) mastodynia aspirin Adverse Reaction (Severe, Verified 05/04/24 07:20) cannot take d/t Zach's Vasculitis Medications ???Medication ???Instructions ???Recorded ???Confirmed ???Type handicap placard #1 ea 08/29/22 05/04/24 Rx handicap placard #1 ea 03/12/23 05/04/24 Rx salicylic acid 6 % topical cream 1 applic topical QHS #454 grams 09/09/23 05/04/24 Rx triamcinolone acetonide 0.1 % 1 applic topical DAILY PRN 09/09/23 05/04/24 Rx topical ointment rash/itching #15 grams tamsulosin 0.4 mg capsule 0.8 mg PO QDAY 01/15/24 05/04/24 History azathioprine 50 mg tablet 50 mg PO DAILY #30 tabs 02/06/24 05/04/24 Rx omeprazole 40 mg capsule,delayed 40 mg PO DAILY stomach #90 caps 02/09/24 05/04/24 Rx release metoprolol tartrate 25 mg tablet 25 mg PO DAILY BP #90 tabs 03/09/24 05/04/24 Rx mirtazapine 15 mg tablet 15 mg PO QHS #30 tabs 03/09/24 05/04/24 Rx gabapentin 100 mg capsule 200 mg (2 x 100 mg) PO QHS #60 caps 04/12/24 05/04/24 Rx oxycodone-acetaminoph en 5 mg-325 1 tab PO Q8H PRN pain 30 days #90 04/12/24 05/04/24 Rx mg tablet (Percocet) tabs pregabalin 25 mg capsule 25 mg PO BID #60 caps 04/12/24 05/04/24 Rx amoxicillin 500 mg-potassium 1 tab PO QDAY #10 tabs 05/04/24 05/04/24 Rx clavulanate 125 mg tablet (Augmentin) Have you fallen in the past year?: No Nurse's Note: States for a couple of weeks he has had nasal congestion, SOB on exertion chest congestion a bad cough which is nonproductive and tight. Denies body aches, fevers, chills. Has been using dayquil. [facility] Medical History Dialysis patient Wears hearing aid Wears dentures Wears glasses Arthritis Prostate disease Anemia History of renal disease Back pain Gastric reflux Neuropathy History of edema History of CHF (congestive heart failure) History of echocardiogram Normal stress echocardiogram Cardiology follow-up encounter Family history of malignant neoplasm of colon Rheumatoid arthritis GERD (gastroesophageal reflux disease) Former smoker Irregular heart beat Chronic systolic heart failure Hard of hearing Obstructive sleep apnea Zach's granulomatosis BPH (benign prostatic hyperplasia) Chronic kidney disease, stage 3 (moderate) Claudication Prediabetes Essential hypertension History of tobacco use Shortness of breath Chest pain Abnormal stress echo Surgical History Hx of bilateral cataract extraction S/P TURP Cataract extraction status AV fistula History of left heart catheterization (11/12/18) History of endoscopy (01/02/16) History of prostate biopsy (01/11/14) S/P arthroscopic surgery of left knee (1989) H/O arthroscopy of left knee (1988) Status post biopsy of kidney (12/2013) History of total right hip arthroplasty (02/05/16) History of colonoscopy Family History Mother CAD (coronary artery disease) Congestive heart failure Father Prostate cancer Lung cancer Brother Colon cancer Sister Colon cancer Grandmother Diabetes Social History household members: spouse housing: house 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 He has concerns about a cough and congestion. He reports it started a couple of weeks ago. He has been taking dayquil which was helping, but doesn't seem to be helping any longer. He denies any sick contacts. The patient was seen in the ED (more content not included)... Normal [facility] 12 Lead EKGon 04-19-2024 12 Lead EKG [facility] [address] [place] [address] 12 Lead EKG 04/19/24 1546 MR#: [id number] Acct: [id number] Name: FRANKLIN BURTON Rep #: [id number] : 1945 78 From: Fawad Whittaker MD Attending Dr: Status: DEP ER Ordering Dr: Jesus Christian DO Date: 04/19/24 Location: ED Sex: M C Admitted: Test Reason : WEAKNESS Blood Pressure : */* mmHG Vent. Rate : 88 BPM Atrial Rate : 88 BPM P-R Int : 178 ms QRS Dur : 74 ms QT Int : 348 ms P-R-T Axes : 57 53 68 degrees QTcB Int : 421 ms Sinus rhythm with Premature supraventricular complexes Otherwise normal ECG When compared with ECG of 27-Feb-2023 04:51, Premature ventricular complexes are no longer Present Premature supraventricular complexes are now Present Confirmed by Fawad Whittaker ([id number]), videotape editor SHEFALI BRODY ([id number]) on 04/23/2024 6:47:47 AM Referred By: Confirmed By: Fawad Whittaker 04/23/24 0647 Date Fawad Whittaker MD CC: Dr. Matilde Noguera MD; Dr. Jesus Christian DO Signed Normal [facility] Absolute neutrophil countOrd ered By: Jesus Christian on 04-19-2024 Neutrophils (Bld) [#/Vol] 5.1 10*3/uL 2.0-7.7 [facility] Basic Metabolic Profile (BMP )on 04-19-2024 BUN/CRE 5.6 RATIO Low 03-07 [facility] Comment on above: Performed By: #### L 500.2500, L100.0100 #### [facility] [address] [place], [address] CA,Total 9.5 mg/dL Normal 8.5-10.1 [facility] Comment on above: Performed By: #### L 500.2500, L100.0100 #### [facility] [address] [place], [address] Chloride [Moles/Vol] 96 mmol/L Low 98-107 [facility] Comment on above: Performed By: #### L 500.2500, L100.0100 #### [facility] [address] [place], [address] CO2 [Moles/Vol] 33.0 mmol/L High 21.0-32.0 [facility] Comment on above: Performed By: #### L 500.2500, L100.0100 #### [facility] [address] [place], [address] Creatinine [Mass/Vol] 3.95 mg/dL High 0.70-1.30 [facility] Comment on above: Result Comment: The validity of the calculated GFR GFRAA in patients over 70 years has not been determined. Clinical correlation is essential. Performed By: #### L 500.2500, L100.0100 #### [facility] [address] [place], [address] ECRCL 18.41 ml/min Normal [facility] Comment on above: Performed By: #### L 500.2500, L100.0100 #### [facility] [address] [place], [address] EST GFR - AA 19 mL/min Low >60 [facility] Comment on above: Result Comment: Afri can Sudanese GFR Calc Performed By: #### L 500.2500, L100.0100 #### [facility] [address] [place], [address] GAP 7 Normal 5-15 [facility] Comment on above: Performed By: #### L 500.2500, L100.0100 #### [facility] [address] [place], [address] GFR/1.73 sq M.predicted among non-blacks MDRD (S/P/Bld) [Vol rate/Area] 16 mL/min/{1.73_m2} Low >60 [facility] Comment on above: Result Comment: Non- GFR Calc Performed By: #### L 500.2500, L100.0100 #### [facility] [address] [place], [address] Glucose [Mass/Vol] 134 mg/dL High 74-106 [facility] Comment on above: Result Comment: Fast ing Glucose result greater than or equal to 126 mg/dL suggests DIABETES MELLITUS per A.D.A. criteria. Performed By: #### L 500.2500, L100.0100 #### [facility] [address] [place], [address] Potassium [Moles/Vol] 3.8 mmol/L Normal 3.5-5.1 [facility] Comment on above: Performed By: #### L 500.2500, L100.0100 #### [facility] [address] [place], [address] Sodium [Moles/Vol] 136 mmol/L Normal 136-145 [facility] Comment on above: Performed By: #### L 500.2500, L100.0100 #### [facility] [address] [place], [address] Urea nitrogen [Mass/Vol] 22 mg/dL High 7-18 [facility] Comment on above: Performed By: #### L 500.2500, L100.0100 #### [facility] [address] [place], [address] Basophil percentageOrdered B y: Jesus Christian on 04-19-2024 Basophils/100 WBC (Bld) 0.6 % 0-[address] [facility] Bilirubin directOrdered By: Jesus Christian on 04-19-2024 Bilirubin.direct [Mass/Vol] 0.26 mg/dL 0.00-0.30 [facility] Bilirubin, totalOrdered By: Jesus Christian on 04-19-2024 Bilirubin [Mass/Vol] 0.60 mg/dL 0.20-1.00 [facility] Comment on above: For patients on eltr ombopag therapy, use of Dimension [place] TBIL is not recommended. Blood urea nitrogen (BUN)/cr eatinine ratioOrdered By: Jesus Christian on 04-19-2024 Urea nitrogen/Creatinine [Mass ratio] 5.6 mg/mg Low 10-20 [facility] CBC W/Diff, Automatedon - Absolute Lymph 0.63 X10 3/uL Low 0.83-4.51 [facility] Comment on above: Performed By: #### L 500.2500, L100.0100 #### [facility] [address] [place], [address] Absolute Neut 5.1 X10 3/uL Normal 2.0-7.7 [facility] Comment on above: Performed By: #### L 500.2500, L100.0100 #### [facility] [address] [place], [address] Basophils/100 WBC (Bld) 0.6 % Normal 0-[address] [facility] Comment on above: Performed By: #### L 500.2500, L100.0100 #### [facility] [address] [place], [address] Eosinophils/100 WBC (Bld) 1.2 % Normal 0-5 [facility] Comment on above: Performed By: #### L 500.2500, L100.0100 #### [facility] [address] [place], [address] Erythrocyte distribution width (RBC) [Ratio] 13.2 % Normal 11.6-14.6 [facility] Comment on above: Performed By: #### L 500.2500, L100.0100 #### [facility] [address] [place], [address] Hematocrit (Bld) [Volume fraction] 38.8 % Low 40-54 [facility] Comment on above: Performed By: #### L 500.2500, L100.0100 #### [facility] [address] [place], [address] Hemoglobin (Bld) [Mass/Vol] 12.9 g/dL Low 13.0-16.5 [facility] Comment on above: Performed By: #### L 500.2500, L100.0100 #### [facility] [address] [place], [address] IG% 0.300 Normal 0.0-0.9 [facility] Comment on above: Result Comment: IG% - Immature Granulocytes (promyelocytes, myelocytes and metamyelocytes) > 1% indicates that a LEFT SHIFT is Present. Performed By: #### L 500.2500, L100.0100 #### [facility] [address] [place], [address] Lymphocytes/100 WBC (Bld) 9.6 % Low 19-41 [facility] Comment on above: Performed By: #### L 500.2500, L100.0100 #### [facility] [address] [place], [address] MCH (RBC) [Entitic mass] 31.6 pg Normal 27.0-32.0 [facility] Comment on above: Performed By: #### L 500.2500, L100.0100 #### [facility] [address] [place], [address] MCHC (RBC) [Mass/Vol] 33.2 g/dL Normal 32-36 [facility] Comment on above: Performed By: #### L 500.2500, L100.0100 #### [facility] [address] [place], [address] MCV (RBC) [Entitic vol] 95.1 fL High 80-[address] [facility] Comment on above: Performed By: #### L 500.2500, L100.0100 #### [facility] [address] [place], [address] Monocytes/100 WBC (Bld) 9.9 % Normal 0-10 [facility] Comment on above: Performed By: #### L 500.2500, L100.0100 #### [facility] [address] [place], [address] Neutrophils/100 WBC (Bld) 78.4 % High 47-70 [facility] Comment on above: Performed By: #### L 500.2500, L100.0100 #### [facility] [address] [place], [address] Nucleated RBC (Bld) [#/Vol] 0 10*3/uL Normal 0-5 [facility] Comment on above: Performed By: #### L 500.2500, L100.0100 #### [facility] [address] [place], [address] Platelet mean volume (Bld) [Entitic vol] 9.5 fL Normal 6.2-12.0 [facility] Comment on above: Performed By: #### L 500.2500, L100.0100 #### [facility] [address] [place], [address] Platelets (Bld) [#/Vol] 142 10*3/uL Low 150-450 [facility] Comment on above: Performed By: #### L 500.2500, L100.0100 #### [facility] [address] [place], [address] RBC (Bld) [#/Vol] 4.08 10*6/uL Low 4.6-6.2 [facility] Comment on above: Performed By: #### L 500.2500, L100.0100 #### [facility] [address] [place], [address] RDW SD 46.3 fl High 35.1-43.9 [facility] Comment on above: Performed By: #### L 500.2500, L100.0100 #### [facility] [address] [place], [address] WBC (Bld) [#/Vol] 6.5 10*3/uL Normal 4.4-11.0 [facility] Comment on above: Performed By: #### L 500.2500, L100.0100 #### [facility] [address] [place], [address] Carbon dioxide measurementOr dered By: Jesus Christian on 04-19-2024 CO2 [Moles/Vol] 33.0 mmol/L High 21.0-32.0 [facility] Chest PA and Lateralon 04-19 Chest PA and Lateral [facility] Imaging Services [address] [place] [address] Chest PA and Lateral MR#: [id number] Acct: [id number] Name: FRANKLIN BURTON Rep #: [id number] : 1945 M 78 From: Chance Gonzales DO PCP: Dr. Matilde Noguera MD Status: [facility] ER Study: Chest PA and Lateral Date of Exam: 04/19/24 Exam# [id number] Ordering Dr: Jesus Christian DO [id number] INDICATION: Weakness EXAMINATION/TECHNIQUE : X-RAY - XR Chest 2 Views COMPARISON: __ FINDINGS: LINES/DEVICES: None. LUNGS: No consolidation, edema or effusion. No pneumothorax. MEDIASTINUM AND CARDIOVASCULAR STRUCTURES: Cardiac silhouette not enlarged. Central airways and mediastinal contour are unremarkable. BONES AND SOFT TISSUES: Degenerative vertebral changes. Compression of lower thoracic and upper lumbar vertebral segments. RAD/Chest PA and Lateral IMPRESSION: No radiographic evidence of acute cardiopulmonary disease. Electronically Signed: Chance Gonzales DO at 16:31 EST , CC: Dr. Matilde Noguera MD; Dr. Jesus Christian DO Mission Commander: Signed Normal [facility] Chloride measurementOrdered By: Jesus Christian on 04-19-2024 Chloride [Moles/Vol] 96 mmol/L Low 98-107 [facility] Emergency Department Summary on 04-19-2024 Emergency Department Summary [facility] Medical Records Department [address] [place] [address] Emergency Department Summary 04/19/24 MR#: [id number] Acct: [id number] Name: FRANKLIN BURTON Rep #: [id number] : 1945 78 From: Jesus Christian DO PCP: Dr. Matilde Noguera MD Status:DEP ER Location: ED HPI History of Present Illness Chief Complaint: Weakness Informant: patient, spouse/S.O. and family Onset/Context/Timing Onset: Days Context: Gradual Onset Timing: Continuous Quality: Weakness Location: Generalized Worsened by: Activity Relieved by: Nothing Narrative Narrative: Patient presents with generalized weakness that has been getting worse over the past few days. Patient went to dialysis today and had a complete run of dialysis. Patient states that the staff at the dialysis center told him he was too weak to go home and that he should go to the emergency department. Patient states he has been having a cough. Patient denies any shortness of breath. Patient denies any fevers or chills. Patient states his weakness is worse with any activity. Patient states he feels weak all over. Patient states nothing seems to help with it. Patient admits to occasional low back pain. [facility] Dialysis patient Wears hearing aid Wears dentures Wears glasses Arthritis Prostate disease Anemia History of renal disease Back pain Gastric reflux Neuropathy History of edema History of CHF (congestive heart failure) History of echocardiogram Normal stress echocardiogram Cardiology follow-up encounter Family history of malignant neoplasm of colon Rheumatoid arthritis GERD (gastroesophageal reflux disease) Former smoker Irregular heart beat Chronic systolic heart failure Hard of hearing Obstructive sleep apnea Zach's granulomatosis BPH (benign prostatic hyperplasia) Chronic kidney disease, stage 3 (moderate) Claudication Prediabetes Essential hypertension History of tobacco use Shortness of breath Chest pain Abnormal stress echo Home Medications ???Medication ???Instructions ???Recorded ???Last Taken ???Type handicap placard #1 ea 08/29/22 Unknown Rx handicap placard #1 ea 03/12/23 Unknown Rx salicylic acid 6 % topical cream 1 applic topical QHS #454 grams 09/09/23 Unknown Rx triamcinolone acetonide 0.1 % 1 applic topical DAILY PRN 09/09/23 Unknown Rx topical ointment rash/itching #15 grams tamsulosin 0.4 mg capsule 0.8 mg PO QDAY 01/15/24 Unknown History azathioprine 50 mg tablet 50 mg PO DAILY #30 tabs 02/06/24 Unknown Rx omeprazole 40 mg capsule,delayed 40 mg PO DAILY stomach #90 caps 02/09/24 Unknown Rx release metoprolol tartrate 25 mg tablet 25 mg PO DAILY BP #90 tabs 03/09/24 Unknown Rx mirtazapine 15 mg tablet 15 mg PO QHS #30 tabs 03/09/24 Unknown Rx gabapentin 100 mg capsule 200 mg (2 x 100 mg) PO QHS #60 caps 04/12/24 Unknown Rx oxycodone-acetaminoph en 5 mg-325 1 tab PO Q8H PRN pain 30 days #90 04/12/24 Unknown Rx mg tablet (Percocet) tabs pregabalin 25 mg capsule 25 mg PO BID #60 caps 04/12/24 Unknown Rx Allergy/AdvReac Type Severity Reaction Status Date / Time finasteride Allergy Intermediate mastodynia Verified 04/19/24 13:19 aspirin AdvReac Severe cannot Verified 04/19/24 13:19 take d/t Zach's Vasculitis Family History Mother CAD (coronary artery disease) Congestive heart failure Father Prostate cancer Lung cancer Brother Colon cancer Sister Colon cancer Grandmother Diabetes Surgical History Hx of bilateral cataract extraction S/P TURP Cataract extraction status AV fistula History of left heart catheterization (11/12/18) History of endoscopy (01/02/16) History of prostate biopsy (01/11/14) S/P arthroscopic surgery of left knee (1989) H/O arthroscopy of left knee (1988) Status post biopsy of kidney (12/2013) History of total right hip arthroplasty (02/05/16) History of colonoscopy Social History household members: spouse housing: house 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 Normal [facility] Eosinophil percentageOrdered By: Jesus Christian on 04-19-2024 Eosinophils/100 WBC (Bld) 1.2 % 0-5 [facility] Erythrocyte distribution wid th ratioOrdered By: Jesus Christian on 04-19-2024 Erythrocyte distribution width (RBC) [Ratio] 13.2 % 11.6-14.6 [facility] Erythrocyte distribution wid th standard deviationOrdered By: Jesus Christian on 04-19-2024 Erythrocyte distribution width (RBC) [Entitic vol] 46.3 fL High 35.1-43.9 [facility] Estimated glomerular filtrat ion rate (GFR) AmericanOrdered By: Jesus Christian on 04-19-2024 Estimated GFR (MDRD) Amer 19 mL/min Low >60 [facility] Comment on above: GFR Calc Estimation of creatinine shanthi aranceOrdered By: Jesus Christian on 04-19-2024 Estimated Creatinine Clearance Calc 18.41 ml/min [facility] Glomerular filtration rate ( GFR) estimationOrdered By: Jesus Christian on 04-19-2024 Estimated GFR (MDRD) Non-Af Amer 16 mL/min Low >60 [facility] Comment on above: Non- GFR Calc Glucose measurementOrdered B y: Jesus Christian on 04-19-2024 Glucose [Mass/Vol] 134 mg/dL High 74-106 [facility] Comment on above: Fasting Glucose resu lt greater than or equal to 126 mg/dL suggests DIABETES MELLITUS per A.D.A. criteria. Hematocrit Auto (Bld) [Volum e fraction]Ordered By: Jesus Christian on 04-19-2024 Hematocrit (Bld) [Volume fraction] 38.8 % Low 40-54 [facility] Hemoglobin measurementOrdere d By: Jesus Christian on 04-19-2024 Hemoglobin (Bld) [Mass/Vol] 12.9 g/dL Low 13.0-16.5 [facility] Immature granulocytes/100 WB C Auto (Bld)Ordered By: Jesus Christian on 04-19-2024 Immature granulocytes/100 WBC (Bld) 0.300 % 0.0-0.9 [facility] Comment on above: IG% - Immature Granu locytes (promyelocytes, myelocytes and metamyelocytes) > 1% indicates that a LEFT SHIFT is Present. Influenza virus A and B and SARS-CoV-2 (COVID-19) and Respiratory syncytial virus RNAOrdered By: Jesus Christian on 04-19-2024 SARS-CoV-2 (COVID-19) RNA SHAE+probe Ql (Unsp spec) [facility] normalized rat io (INR) calculationOrdered By: Jesus Christian on 04-19-2024 INR Coag (Bld) [Relative time] 1.1 {INR} [facility] - Chemistry and C hemistry - challengeOrdered By: Jesus Christian on 04-19-2024 AST [Catalytic activity/Vol] 23 U/L 15-37 [facility] Lactic Acidon 12-02-2024 Lactate [Moles/Vol] 1.6 mmol/L Normal 0.4-1.9 [facility] Comment on above: Order Comment: Y Performed By: #### L 503.6005, L300.4310, L300.3900, L500.3400 ####[facility] [address] [place], [address] Lactic acid measurementOrder ed By: Jesus Christian on 04-19-2024 Lactate [Moles/Vol] 1.6 mmol/L 0.4-2.0 [facility] Liver Profileon 04-19-2024 Albumin [Mass/Vol] 3.6 g/dL Normal 3.2-5.0 [facility] Comment on above: Performed By: #### L 503.6005, L300.4310, L300.3900, L500.3400 #### [facility] [address] [place], [address] ALK P 126 U/L High 45-117 [facility] Comment on above: Performed By: #### L 503.6005, L300.4310, L300.3900, L500.3400 #### [facility] [address] [place], [address] ALT [Catalytic activity/Vol] 34 U/L Normal 16-61 [facility] Comment on above: Performed By: #### L 503.6005, L300.4310, L300.3900, L500.3400 #### [facility] [address] [place], [address] AST [Catalytic activity/Vol] 23 U/L Normal 15-37 [facility] Comment on above: Performed By: #### L 503.6005, L300.4310, L300.3900, L500.3400 #### [facility] [address] [place], [address] Bilirubin [Mass/Vol] 0.60 mg/dL Normal 0.20-1.00 [facility] Comment on above: Result Comment: For patients on eltrombopag therapy, use of Dimension [place] TBIL is not recommended. Performed By: #### L 503.6005, L300.4310, L300.3900, L500.3400 #### [facility] [address] [place], [address] Bilirubin.direct [Mass/Vol] 0.26 mg/dL Normal 0.00-0.30 [facility] Comment on above: Performed By: #### L 503.6005, L300.4310, L300.3900, L500.3400 #### [facility] [address] [place], [address] Globulin (S) [Mass/Vol] 3.8 g/dL Normal 2.2-4.2 [facility] Comment on above: Performed By: #### L 503.6005, L300.4310, L300.3900, L500.3400 #### [facility] [address] [place], [address] T PROT 7.4 g/dL Normal 6.4-8.2 [facility] Comment on above: Performed By: #### L 503.6005, L300.4310, L300.3900, L500.3400 #### [facility] [address] [place], [address] Lymphocytes Auto (Unsp spec) [#/Vol]Ordered By: Jesus Christian on 04-19-2024 Lymphocytes (Bld) [#/Vol] 0.63 10*3/uL Low 0.83-4.51 [facility] Lymphocytes/100 WBC Auto (Un sp spec)Ordered By: Jesus Christian on 04-19-2024 Lymphocytes/100 WBC (Bld) 9.6 % Low 19-41 [facility] M100.678on 04-19-2024 M100.678 Pending SARS-CoV-2 (COVID 19) Negative INFLUENZA A Negative INFLUENZA B Negative RSV PCR Negative Normal [facility] Comment on above: Performed By: #### L 500.4100, L501.9985, L500.4050, L100.0100 #### [facility] [address] [place], [place], [id number] MCV (mean corpuscular volume ) determinationOrdered By: Jesus Christian on 04-19-2024 MCV (RBC) [Entitic vol] 95.1 fL High 80-[address] [facility] Mean corpuscular hemoglobin (MCH) determinationOrdered By: Jesus Christian on 04-19-2024 MCH (RBC) [Entitic mass] 31.6 pg 27.0-32.0 [facility] Mean corpuscular hemoglobin concentration (MCHC) determinationOrdered By: Jesus Christian on 04-19-2024 MCHC (RBC) [Mass/Vol] 33.2 g/dL 32-36 [facility] Mean platelet volume determi nationOrdered By: Jesus Christian on 04-19-2024 Platelet mean volume (Bld) [Entitic vol] 9.5 fL 6.2-12.0 [facility] Monocyte percentageOrdered B y: Jesus Christian on 04-19-2024 Monocytes/100 WBC (Bld) 9.9 % 0-[address] [facility] Neutrophil percentageOrdered By: Jesus Christian on 04-19-2024 Neutrophils/100 WBC (Bld) 78.4 % High 47-70 [facility] Nucleated red blood cell per centageOrdered By: Jesus Christian on 04-19-2024 Nucleated RBC/100 WBC (Bld) [Ratio] 0 % 0-5 [facility] Partial Thromboplast Timeon 04-19-2024 aPTT Coag (Bld) [Time] 29.9 s Normal 24.1-36.2 [facility] Comment on above: Performed By: #### L 503.6005, L300.4310, L300.3900, L500.3400 ####[facility] [address] [place], [place], [id number] Platelet countOrdered By: Jeannie Christian on 04-19-2024 Platelets (Bld) [#/Vol] 142 10*3/uL Low 150-450 [facility] Potassium measurementOrdered By: Jesus Christian on 04-19-2024 Potassium [Moles/Vol] 3.8 mmol/L 3.5-5.1 [facility] Prothrombin Time w/INRon INR Coag (PPP) [Relative time] 1.1 {INR} Normal [facility] Comment on above: Performed By: #### L 503.6005, L300.4310, L300.3900, L500.3400 ####[facility] [address] [place], [address] PT Coag (PPP) [Time] 13.8 s Normal 11.7-14.9 [facility] Comment on above: Performed By: #### L 503.6005, L300.4310, L300.3900, L500.3400 ####[facility] [address] [place], [address] Prothrombin timeOrdered By: Jesus Christian on 04-19-2024 PT Coag (PPP) [Time] 13.8 s 11.7-14.9 [facility] RBC Auto (Bld) [#/Vol]Ordere d By: Jesus Christian on 04-19-2024 RBC (Bld) [#/Vol] 4.08 10*6/uL Low 4.6-6.2 [facility] Serum anion gap measurementO rdered By: Jesus Christian on 04-19-2024 Anion gap [Moles/Vol] 7 mmol/L 5-15 [facility] Serum globulin measurementOr dered By: Jesus Christian on 04-19-2024 Globulin (S) [Mass/Vol] 3.8 g/dL 2.2-4.2 [facility] Serum or plasma alanine suresh otransferase (ALT) measurementOrdered By: Jesus Christian on 04-19-2024 ALT [Catalytic activity/Vol] 34 U/L 16-61 [facility] Serum or plasma albumin satish urement (mass/volume)Ordered By: Jesus Christian on 04-19-2024 Albumin [Mass/Vol] 3.6 g/dL 3.2-5.0 [facility] Serum or plasma alkaline jennifer sphatase measurementOrdered By: Jesus Christian on 04-19-2024 ALP [Catalytic activity/Vol] 126 U/L High 45-117 [facility] Serum or plasma calcium satish urement (mass/volume)Ordered By: Jesus Christian on 04-19-2024 Calcium [Mass/Vol] 9.5 mg/dL 8.5-10.1 [facility] Serum or plasma creatinine m easurement (mass/volume)Ordered By: Jesus Christian on 04-19-2024 Creatinine [Mass/Vol] 3.95 mg/dL High 0.70-1.30 [facility] Comment on above: The validity of the calculated GFR & GFRAA in patients over 70 years has not been determined. Clinical correlation is essential. Serum or plasma urea nitroge n measurement (mass/volume)Ordered By: Jesus Christian on 04-19-2024 Urea nitrogen [Mass/Vol] 22 mg/dL High 7-18 [facility] Sodium levelOrdered By: Jesus Christian on 04-19-2024 Sodium [Moles/Vol] 136 mmol/L 136-145 [facility] Total proteinOrdered By: Soo Christian on 04-19-2024 Protein [Mass/Vol] 7.4 g/dL 6.4-8.2 [facility] Urinalysis, Completeon 04-19 BACTERIA Normal None Seen [facility] Comment on above: Order Comment: CLEAN CATCH Result Comment: PT D ISCHARGED Performed By: #### L 500.4100, L501.9985, L500.4050, L100.0100 #### [facility] [address] [place], [address] BILIRUBIN URINE Normal Negative [facility] Comment on above: Order Comment: CLEAN CATCH Result Comment: PT D ISCHARGED Performed By: #### L 500.4100, L501.9985, L500.4050, L100.0100 #### [facility] [address] [place], [address] Clarity (U) Normal Clear [facility] Comment on above: Order Comment: CLEAN CATCH Result Comment: PT D ISCHARGED Performed By: #### L 500.4100, L501.9985, L500.4050, L100.0100 #### [facility] [address] [place], [address] Color (U) Normal Yellow [facility] Comment on above: Order Comment: CLEAN CATCH Result Comment: PT D ISCHARGED Performed By: #### L 500.4100, L501.9985, L500.4050, L100.0100 #### [facility] [address] [place], [address] EPI,SQUAMOUS Normal 0-5 [facility] Comment on above: Order Comment: CLEAN CATCH Result Comment: PT D ISCHARGED Performed By: #### L 500.4100, L501.9985, L500.4050, L100.0100 #### [facility] [address] [place], [address] GLUCOSE, UR Normal Normal [facility] Comment on above: Order Comment: CLEAN CATCH Result Comment: PT D ISCHARGED Performed By: #### L 500.4100, L501.9985, L500.4050, L100.0100 #### [facility] [address] [place], [address] KETONE UR Normal Negative [facility] Comment on above: Order Comment: CLEAN CATCH Result Comment: PT D ISCHARGED Performed By: #### L 500.4100, L501.9985, L500.4050, L100.0100 #### [facility] [address] [place], [address] LEUK ESTERASE Normal Negative [facility] Comment on above: Order Comment: CLEAN CATCH Result Comment: PT D ISCHARGED Performed By: #### L 500.4100, L501.9985, L500.4050, L100.0100 #### [facility] [address] [place], [address] Mucus Ql (Urine sed) Normal [facility] Comment on above: Order Comment: CLEAN CATCH Result Comment: PT D ISCHARGED Performed By: #### L 500.4100, L501.9985, L500.4050, L100.0100 #### [facility] [address] [place], [address] Nitrite Ql (U) Normal Negative [facility] Comment on above: Order Comment: CLEAN CATCH Result Comment: PT D ISCHARGED Performed By: #### L 500.4100, L501.9985, L500.4050, L100.0100 #### [facility] [address] [place], [address] OCCULT BLOOD-UR Normal Negative [facility] Comment on above: Order Comment: CLEAN CATCH Result Comment: PT D ISCHARGED Performed By: #### L 500.4100, L501.9985, L500.4050, L100.0100 #### [facility] [address] [place], [address] pH UR Normal 5.0 - 8.0 [facility] Comment on above: Order Comment: CLEAN CATCH Result Comment: PT D ISCHARGED Performed By: #### L 500.4100, L501.9985, L500.4050, L100.0100 #### [facility] [address] [place], [address] PROT DIPSTX Normal Negative [facility] Comment on above: Order Comment: CLEAN CATCH Result Comment: PT D ISCHARGED Performed By: #### L 500.4100, L501.9985, L500.4050, L100.0100 #### [facility] [address] [place], [address] RBC Normal 0-5 [facility] Comment on above: Order Comment: CLEAN CATCH Result Comment: PT D ISCHARGED Performed By: #### L 500.4100, L501.9985, L500.4050, L100.0100 #### [facility] [address] [place], [address] SP.GR. DIPSTX Normal 1.002-1.030 [facility] Comment on above: Order Comment: CLEAN CATCH Result Comment: PT D ISCHARGED Performed By: #### L 500.4100, L501.9985, L500.4050, L100.0100 #### [facility] [address] [place], [address] UR Preservative Normal [facility] Comment on above: Order Comment: CLEAN CATCH Result Comment: PT D ISCHARGED Performed By: #### L 500.4100, L501.9985, L500.4050, L100.0100 #### [facility] [address] [place], [address] UROBILI Normal Normal [facility] Comment on above: Order Comment: CLEAN CATCH Result Comment: PT D ISCHARGED Performed By: #### L 500.4100, L501.9985, L500.4050, L100.0100 #### [facility] [address] [place], [address] WBC Normal 0-5 [facility] Comment on above: Order Comment: CLEAN CATCH Result Comment: PT D ISCHARGED Performed By: #### L 500.4100, L501.9985, L500.4050, L100.0100 #### [facility] [address] [place], [address] White blood cell (WBC) count Ordered By: Jesus Christian on 04-19-2024 WBC (Bld) [#/Vol] 6.5 10*3/uL 4.4-11.0 [facility] aPTT Coag (PPP) [Time]Ordere d By: Jesus Christian on 04-19-2024 aPTT Coag (Bld) [Time] 29.9 s 24.1-36.2 [facility] CBC W/Diff, Automatedon 10-2 -2023 Absolute Lymph 0.67 X10 3/uL Low 0.83-4.51 [facility] Comment on above: Performed By: #### L 500.4100, L501.9985, L500.4050, L100.0100 #### [facility] [address] [place], [address] Absolute Neut 3.3 X10 3/uL Normal 2.0-7.7 [facility] Comment on above: Performed By: #### L 500.4100, L501.9985, L500.4050, L100.0100 #### [facility] [address] [place], [address] Basophils/100 WBC (Bld) 0.7 % Normal 0-[address] [facility] Comment on above: Performed By: #### L 500.4100, L501.9985, L500.4050, L100.0100 #### [facility] [address] [place], [address] Eosinophils/100 WBC (Bld) 1.8 % Normal 0-5 [facility] Comment on above: Performed By: #### L 500.4100, L501.9985, L500.4050, L100.0100 #### [facility] [address] [place], [address] Erythrocyte distribution width (RBC) [Ratio] 13.2 % Normal 11.6-14.6 [facility] Comment on above: Performed By: #### L 500.4100, L501.9985, L500.4050, L100.0100 #### [facility] [address] [place], [address] Hematocrit (Bld) [Volume fraction] 39.7 % Low 40-54 [facility] Comment on above: Performed By: #### L 500.4100, L501.9985, L500.4050, L100.0100 #### [facility] [address] [place], [address] Hemoglobin (Bld) [Mass/Vol] 12.9 g/dL Low 13.0-16.5 [facility] Comment on above: Performed By: #### L 500.4100, L501.9985, L500.4050, L100.0100 #### [facility] [address] [place], [address] IG% 0.400 Normal 0.0-0.9 [facility] Comment on above: Result Comment: IG% - Immature Granulocytes (promyelocytes, myelocytes and metamyelocytes) > 1% indicates that a LEFT SHIFT is Present. Performed By: #### L 500.4100, L501.9985, L500.4050, L100.0100 #### [facility] [address] [place], [address] Lymphocytes/100 WBC (Bld) 15.0 % Low 19-41 [facility] Comment on above: Performed By: #### L 500.4100, L501.9985, L500.4050, L100.0100 #### [facility] [address] [place], [address] MCH (RBC) [Entitic mass] 31.6 pg Normal 27.0-32.0 [facility] Comment on above: Performed By: #### L 500.4100, L501.9985, L500.4050, L100.0100 #### [facility] [address] [place], [address] MCHC (RBC) [Mass/Vol] 32.5 g/dL Normal 32-36 [facility] Comment on above: Performed By: #### L 500.4100, L501.9985, L500.4050, L100.0100 #### [facility] [address] [place], [address] MCV (RBC) [Entitic vol] 97.3 fL High 80-[address] [facility] Comment on above: Performed By: #### L 500.4100, L501.9985, L500.4050, L100.0100 #### [facility] [address] [place], [address] Monocytes/100 WBC (Bld) 8.3 % Normal 0-[address] [facility] Comment on above: Performed By: #### L 500.4100, L501.9985, L500.4050, L100.0100 #### [facility] [address] [place], [address] Neutrophils/100 WBC (Bld) 73.8 % High 47-70 [facility] Comment on above: Performed By: #### L 500.4100, L501.9985, L500.4050, L100.0100 #### [facility] [address] [place], [address] Nucleated RBC (Bld) [#/Vol] 0 10*3/uL Normal 0-5 [facility] Comment on above: Performed By: #### L 500.4100, L501.9985, L500.4050, L100.0100 #### [facility] [address] [place], [address] Platelet mean volume (Bld) [Entitic vol] 9.9 fL Normal 6.2-12.0 [facility] Comment on above: Performed By: #### L 500.4100, L501.9985, L500.4050, L100.0100 #### [facility] [address] [place], [address] Platelets (Bld) [#/Vol] 137 10*3/uL Low 150-450 [facility] Comment on above: Performed By: #### L 500.4100, L501.9985, L500.4050, L100.0100 #### [facility] [address] [place], [address] RBC (Bld) [#/Vol] 4.08 10*6/uL Low 4.6-6.2 [facility] Comment on above: Performed By: #### L 500.4100, L501.9985, L500.4050, L100.0100 #### [facility] [address] [place], [address] RDW SD 47.8 fl High 35.1-43.9 [facility] Comment on above: Performed By: #### L 500.4100, L501.9985, L500.4050, L100.0100 #### [facility] [address] [place], [address] WBC (Bld) [#/Vol] 4.5 10*3/uL Normal 4.4-11.0 [facility] Comment on above: Performed By: #### L 500.4100, L501.9985, L500.4050, L100.0100 #### [facility] [address] [place], [address] Comprehensive Metabolic [facility] 03-09-2024 Albumin [Mass/Vol] 3.4 g/dL Normal 3.2-5.0 [facility] Comment on above: Performed By: #### L 500.4100, L501.9985, L500.4050, L100.0100 #### [facility] [address] [place], [address] Albumin/Globulin [Mass ratio] 1.0 {ratio} Normal 0.9-2.4 [facility] Comment on above: Performed By: #### L 500.4100, L501.9985, L500.4050, L100.0100 #### [facility] [address] [place], [address] ALK P 90 U/L Normal 45-117 [facility] Comment on above: Performed By: #### L 500.4100, L501.9985, L500.4050, L100.0100 #### [facility] [address] [place], [address] ALT [Catalytic activity/Vol] 21 U/L Normal 16-61 [facility] Comment on above: Performed By: #### L 500.4100, L501.9985, L500.4050, L100.0100 #### [facility] [address] [place], [address] AST [Catalytic activity/Vol] 16 U/L Normal 15-37 [facility] Comment on above: Performed By: #### L 500.4100, L501.9985, L500.4050, L100.0100 #### [facility] [address] [place], [address] Bilirubin [Mass/Vol] 0.80 mg/dL Normal 0.20-1.00 [facility] Comment on above: Result Comment: For patients on eltrombopag therapy, use of Dimension [place] TBIL is not recommended. Performed By: #### L 500.4100, L501.9985, L500.4050, L100.0100 #### [facility] [address] [place], [address] BUN/CRE 7.4 RATIO Low 10-20 [facility] Comment on above: Performed By: #### L 500.4100, L501.9985, L500.4050, L100.0100 #### [facility] [address] [place], [address] CA,Total 9.5 mg/dL Normal 8.5-10.1 [facility] Comment on above: Performed By: #### L 500.4100, L501.9985, L500.4050, L100.0100 #### [facility] [address] [place], [address] Chloride [Moles/Vol] 97 mmol/L Low 98-107 [facility] Comment on above: Performed By: #### L 500.4100, L501.9985, L500.4050, L100.0100 #### [facility] [address] [place], [address] CO2 [Moles/Vol] 33.0 mmol/L High 21.0-32.0 [facility] Comment on above: Performed By: #### L 500.4100, L501.9985, L500.4050, L100.0100 #### [facility] [address] [place], [address] Creatinine [Mass/Vol] 4.59 mg/dL High 0.70-1.30 [facility] Comment on above: Result Comment: The validity of the calculated GFR GFRAA in patients over 70 years has not been determined. Clinical correlation is essential. Performed By: #### L 500.4100, L501.9985, L500.4050, L100.0100 #### [facility] [address] [place], [address] EST GFR - AA 16 mL/min Low >60 [facility] Comment on above: Result Comment: Afri can Sudanese GFR Calc Performed By: #### L 500.4100, L501.9985, L500.4050, L100.0100 #### [facility] [address] [place], [address] GAP 5 Normal 5-15 [facility] Comment on above: Performed By: #### L 500.4100, L501.9985, L500.4050, L100.0100 #### [facility] [address] [place], [address] GFR/1.73 sq M.predicted among non-blacks MDRD (S/P/Bld) [Vol rate/Area] 13 mL/min/{1.73_m2} Low >60 [facility] Comment on above: Result Comment: Non- GFR Calc Performed By: #### L 500.4100, L501.9985, L500.4050, L100.0100 #### [facility] [address] [place], [address] Globulin (S) [Mass/Vol] 3.5 g/dL Normal 2.2-4.2 [facility] Comment on above: Performed By: #### L 500.4100, L501.9985, L500.4050, L100.0100 #### [facility] [address] [place], [address] Glucose [Mass/Vol] 151 mg/dL High 74-106 [facility] Comment on above: Result Comment: Fast ing Glucose result greater than or equal to 126 mg/dL suggests DIABETES MELLITUS per A.D.A. criteria. Performed By: #### L 500.4100, L501.9985, L500.4050, L100.0100 #### [facility] [address] [place], [address] Potassium [Moles/Vol] 3.6 mmol/L Normal 3.5-5.1 [facility] Comment on above: Performed By: #### L 500.4100, L501.9985, L500.4050, L100.0100 #### [facility] [address] [place], [address] Sodium [Moles/Vol] 135 mmol/L Low 136-145 [facility] Comment on above: Performed By: #### L 500.4100, L501.9985, L500.4050, L100.0100 #### [facility] [address] [place], [address] T PROT 6.9 g/dL Normal 6.4-8.2 [facility] Comment on above: Performed By: #### L 500.4100, L501.9985, L500.4050, L100.0100 #### [facility] [address] [place], [address] Urea nitrogen [Mass/Vol] 34 mg/dL High 7-18 [facility] Comment on above: Performed By: #### L 500.4100, L501.9985, L500.4050, L100.0100 #### [facility] [address] [place], [address] Hemoglobin A1con 03-09-2024 HbA1c (Bld) [Mass fraction] 6.3 % High 3.8-5.6 [facility] Comment on above: Result Comment: Norm al < 5.7 % Prediabetic 5.7 - 6.4 % Diabetic >or= 6.5 % Please note range changes. Performed By: #### L 500.4100, L501.9985, L500.4050, L100.0100 #### [facility] [address] [place], [address] Lipid Profileon 03-09-2024 Cholesterol [Mass/Vol] 158 mg/dL Normal 200 [facility] Comment on above: Result Comment: <200 mg/dL Desirable 200-240 mg/dL Borderline >240 mg/dL High Risk Performed By: #### L 500.4100, L501.9985, L500.4050, L100.0100 #### [facility] [address] [place], [address] Cholesterol in HDL [Mass/Vol] 44 mg/dL Normal [facility] Comment on above: Result Comment: The drugs N-Acetylcysteine and Metamizole may falsely depress this assay. Reference Range HDL <40 mg/dL Low HDL Cholesterol HDL >or= 60 mg/dL High HDL Cholesterol Performed By: #### L 500.4100, L501.9985, L500.4050, L100.0100 #### [facility] [address] [place], [address] Cholesterol in LDL [Mass/Vol] 83 mg/dL Normal 0-130 [facility] Comment on above: Performed By: #### L 500.4100, L501.9985, L500.4050, L100.0100 #### [facility] [address] [place], [address] Cholesterol in VLDL [Mass/Vol] 31 mg/dL Normal 5-40 [facility] Comment on above: Performed By: #### L 500.4100, L501.9985, L500.4050, L100.0100 #### [facility] [address] [place], [address] Triglyceride [Mass/Vol] 154 mg/dL Normal [facility] Comment on above: Result Comment: The drugs N-Acetylcysteine and Metamizole may falsely depress this assay. Serum Triglycerides Reference Interval Normal <150 mg/dL Borderline high 150 - 199 mg/dL High 200 - 499 mg/dL Very High > or = 500 mg/dL Performed By: #### L 500.4100, L501.9985, L500.4050, L100.0100 #### [facility] [address] [place], [address] Internal Medicine Office Vis [place] 03-08-2024 Internal Medicine Office Visit [facility] [address] [place] [address] [place] [address] OFFICE VISIT Date of Service: 03/09/24 MR#: [id number] Acct: [id number] Name: FRANKLIN BURTON Rep #: [id number] : 1945 Provider: Dr. Matilde hernandez MD Age/Sex: 78/M Location: [facility] Status: Signed Intake Vital Signs 12/11/23 10:03 01/15/24 14:22 03/09/24 09:26 Height 5 ft 8 in 5 ft 8 in 5 ft 8 in Weight: 230 lb BMI 34.9 BP 122/72 H Blood Pressure Location Lt brachial Position Sitting Respiration 16 Pulse 70 Pulse Source Monitor Temp 97.3 F L Temp Source Temporal Pulse Oximetry (%) 99 Oxygen Delivery Method room air Intake Visit Reasons: 3 M FU Chief Complaint: f/u Plastic Cutter Required: No Accompanied by: Is patient in pain?: No Allergies finasteride Allergy (Intermediate, Verified 03/09/24 09:19) mastodynia aspirin Adverse Reaction (Severe, Verified 03/09/24 09:19) cannot take d/t Zach's Vasculitis Medications ???Medication ???Instructions ???Recorded ???Confirmed ???Type handicap placard #1 ea 08/29/22 03/09/24 Rx handicap placard #1 ea 03/12/23 03/09/24 Rx salicylic acid 6 % topical cream 1 applic topical QHS #454 grams 09/09/23 03/09/24 Rx triamcinolone acetonide 0.1 % 1 applic topical DAILY PRN 09/09/23 03/09/24 Rx topical ointment rash/itching #15 grams tamsulosin 0.4 mg capsule 0.8 mg PO QDAY 01/15/24 03/09/24 History azathioprine 50 mg tablet 50 mg PO DAILY #30 tabs 02/06/24 03/09/24 Rx omeprazole 40 mg capsule,delayed 40 mg PO DAILY stomach #90 caps 02/09/24 03/09/24 Rx release gabapentin 100 mg capsule 200 mg (2 x 100 mg) PO QHS #60 caps 03/09/24 03/09/24 Rx metoprolol tartrate 25 mg tablet 25 mg PO DAILY BP #90 tabs 03/09/24 03/09/24 Rx mirtazapine 15 mg tablet 15 mg PO QHS #30 tabs 03/09/24 03/09/24 Rx oxycodone-acetaminoph en 5 mg-325 1 tab PO Q8H PRN pain 30 days #90 03/09/24 03/09/24 Rx mg tablet (Percocet) tabs pregabalin 25 mg capsule 25 mg PO BID #60 caps 03/09/24 03/09/24 Rx Have you fallen in the past year?: No PFSH Medical History Dialysis patient Wears hearing aid Wears dentures Wears glasses Arthritis Prostate disease Anemia History of renal disease Back pain Gastric reflux Neuropathy History of edema History of CHF (congestive heart failure) History of echocardiogram Normal stress echocardiogram Cardiology follow-up encounter Family history of malignant neoplasm of colon Rheumatoid arthritis GERD (gastroesophageal reflux disease) Former smoker Irregular heart beat Chronic systolic heart failure Hard of hearing Obstructive sleep apnea Zach's granulomatosis BPH (benign prostatic hyperplasia) Chronic kidney disease, stage 3 (moderate) Claudication Prediabetes Essential hypertension History of tobacco use Shortness of breath Chest pain Abnormal stress echo Surgical History Hx of bilateral cataract extraction S/P TURP Cataract extraction status AV fistula History of left heart catheterization (11/12/18) History of endoscopy (01/02/16) History of prostate biopsy (01/11/14) S/P arthroscopic surgery of left knee (1989) H/O arthroscopy of left knee (1988) Status post biopsy of kidney (12/2013) History of total right hip arthroplasty (02/05/16) History of colonoscopy Family History Mother CAD (coronary artery disease) Congestive heart failure Father Prostate cancer Lung cancer Brother Colon cancer Sister Colon cancer Grandmother Diabetes Social History household members: spouse housing: house 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 He is due for some routine blood work.??? He is up to date on his screening and isn't due for any immunizations. He reports he had his flu shot done at the dialysis center.??? The patient doesn't smoke and does need refills today.??? He reports he is eating healthy.??? He reports his activity level has been low. 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 He follows with nephrology. He is currently doing hemodialysis and tolerating that well. He goes MWF and reports it has been going well. He does still make urine. The patient reports his heartb (more content not included)... Normal [facility] Limited Unilateralon 01-27-2024 Breast Limited Unilateral [facility] [address] [place] [address] Breast Limited Unilateral MR#: [id number] Acct: [id number] Name: FRANKLIN BURTON Rep #: [id number] : 1945 M 78 From: Robin ahumada MD PCP: Dr. Matilde Noguera MD Status: REG CLI Study: Breast Limited Unilateral Date of Exam: Exam# [id number] Ordering Dr: Vivienne Yadav MD [id number] STUDY: ULTRASOUND BREAST - RIGHT REASON FOR EXAM: Male, 78 years old. Pain in the right breast. TECHNIQUE: Axial and longitudinal images of the RIGHT breast were performed with a high resolution ultrasound transducer. # OF IMAGES: 25 COMPARISON: Comparison is made with prior mammogram done earlier today. FINDINGS: RIGHT Breast: The retroareolar region of the breast was examined with ultrasound. There is evidence of retroareolar breast tissue in keeping with gynecomastia. IMPRESSION: Findings suggestive of gynecomastia. ASSESSMENT CATEGORY: BIRADS Category 2: Benign. A letter regarding these results will be sent to the patient by the facility within 30 days. Electronically Signed: Robin Bingham MD at 14:45 EDT , [id number] STUDY: ULTRASOUND BREAST - LEFT REASON FOR EXAM: Male, 78 years old. Retroareolar pain. TECHNIQUE: Axial and longitudinal images of the LEFT breast were performed with a high resolution ultrasound transducer. # OF IMAGES: 25 COMPARISON: Comparison is made with prior mammogram done earlier today. FINDINGS: LEFT Breast: The retroareolar region of the left breast was examined with ultrasound. There is evidence of glandular tissue in keeping with gynecomastia. US/Breast Limited Unilateral IMPRESSION: Findings in keeping with gynecomastia. ASSESSMENT CATEGORY: BIRADS Category 2: Benign. A letter regarding these results will be sent to the patient by the facility within 30 days. Electronically Signed: Robin Bingham MD at 14:46 EDT , CC: Dr. Matilde Noguera MD; Dr. Vivienne Yadav MD Mission Commander: Signed Normal [facility] DIAG MAMM W/CAD, BILATon DIAG MAMM W/CAD, [facility] [address] [place], [place] [id number] DIAG MAMM W/CAD, BILAT MR#: [id number] Acct: [id number] Name: FRANKLIN BURTON Rep #: [id number] : 1945 M 78 From: Robin ahumada MD PCP: Dr. Matilde Noguera MD Status: REG CL Study: DIAG MAMM W/CAD, BILAT Date of Exam: 01/27/24 Exam# [id number] Ordering Dr: José Miguel Reulas [place] [id number] MAMMOGRAPHY - BILATERAL DIAGNOSTIC REASON FOR EXAM: Male, 78 years old. 6 month history of bilateral breast pain. PERTINENT HISTORY: Non-contributory. TECHNIQUE: Digital bilateral breast sascha (3D mammographic acquisition) in the CC and MLO projections. 2-D mediolateral oblique (MLO) and craniocaudad (CC) views of both breasts were obtained. CAD: Full Field Digital Mammography with Computer Added Detection was performed. COMPARISON: None. Baseline examination. FINDINGS: Breast Composition: There are scattered areas of fibroglandular density. Asymmetry of breast tissue in the retroareolar region of both breasts more prominent on the left side. This most likely represents gynecomastia although a targeted ultrasound correlation recommended. No other significant abnormalities are identified. BI/DIAG MAMM W/CAD, BILAT IMPRESSION: Asymmetrical retroareolar breast tissue more prominent on the left side suggestive of bilateral gynecomastia. Correlation with a targeted ultrasound recommended. ASSESSMENT CATEGORY: BIRADS Category 0: Incomplete. Need additional imaging evaluation. A letter regarding these results will be sent to the patient by the facility within 30 days. Approximately 10% of breast cancers are not detected by mammography. A normal mammogram should not delay biopsy of a clinically suspicious abnormality. Electronically Signed: Robin Bingham MD at 10:41 EDT , CC: Dr. Matilde Noguera MD; JULIUS Lazo Mission Commander: Signed Normal [facility] Office Vis it[place] 01-15-2024 Internal Medicine Office Visit [facility] [address] [place] [address] [place] [address] OFFICE VISIT Date of Service: 01/15/24 MR#: [id number] Acct: [id number] Name: FRANKLIN BURTON Rep #: [id number] : 1945 Provider: JULIUS Lazo Age/Sex: 78/M Location: [facility] Status: Signed Intake Vital Signs 12/11/23 10:03 01/15/24 14:22 Height 5 ft 8 in 5 ft 8 in Weight: 228 lb 232 lb BMI 34.7 35.2 BP 122/80 H 112/70 Blood Pressure Location Rt brachial Lt brachial Position Sitting Sitting Respiration 16 14 Pulse 82 63 Pulse Source Monitor Monitor Temp 98.9 F 100.2 F H Temp Source Temporal Temporal Pulse Oximetry (%) 92 99 Oxygen Delivery Method room air room air Intake Visit Reasons: acute - concerns about breasts Chief Complaint: f/u Plastic Cutter Required: No Is patient in pain?: No Allergies finasteride Allergy (Intermediate, Verified 01/15/24 14:12) mastodynia aspirin Adverse Reaction (Severe, Verified 01/15/24 14:12) cannot take d/t Zach's Vasculitis Medications ???Medication ???Instructions ???Recorded ???Confirmed ???Type handicap placard #1 ea 08/29/22 01/15/24 Rx handicap placard #1 ea 03/12/23 01/15/24 Rx salicylic acid 6 % topical cream 1 applic topical QHS #454 grams 09/09/23 01/15/24 Rx triamcinolone acetonide 0.1 % 1 applic topical DAILY PRN 09/09/23 01/15/24 Rx topical ointment rash/itching #15 grams pregabalin 25 mg capsule 25 mg PO BID #60 caps 12/01/23 01/15/24 Rx mirtazapine 15 mg tablet 15 mg PO QHS #30 tabs 12/10/23 01/15/24 Rx metoprolol tartrate 25 mg tablet 25 mg PO DAILY BP #90 tabs 12/11/23 01/15/24 Rx omeprazole 40 mg capsule,delayed 40 mg PO DAILY stomach #90 caps 12/11/23 01/15/24 Rx release gabapentin 100 mg capsule 200 mg (2 x 100 mg) PO QHS #60 caps 01/06/24 01/15/24 Rx oxycodone-acetaminoph en 5 mg-325 1 tab PO Q8H PRN pain 30 days #90 01/06/24 01/15/24 Rx mg tablet (Percocet) tabs pregabalin 25 mg capsule 25 mg PO BID #60 caps 01/06/24 01/15/24 Rx azathioprine 50 mg tablet 50 mg PO DAILY #30 tabs 01/14/24 01/15/24 Rx tamsulosin 0.4 mg capsule 0.8 mg PO QDAY 01/15/24 01/15/24 History Have you fallen in the past year?: No Nurse's Note: States his whole L breast is sore and the nipple is very tender. he states the R one is somewhat tender but not as bad as the L. States it has been going on a couple of months. He states when he started on finasteride is when it started. Denies any skin changes or lumps. Has not taken finasteride for some time now. It is not improving with dc'd finasteride. States he is having trouble sleeping because when he rolls and touches it is sharp. Denies any breast changes including discharge, itching, lumps, skin changes, puckering. States he was on a med previously that can cause breast cancer even though it shrinks prostate in men. [facility] Medical History Dialysis patient Wears hearing aid Wears dentures Wears glasses Arthritis Prostate disease Anemia History of renal disease Back pain Gastric reflux Neuropathy History of edema History of CHF (congestive heart failure) History of echocardiogram Normal stress echocardiogram Cardiology follow-up encounter Family history of malignant neoplasm of colon Rheumatoid arthritis GERD (gastroesophageal reflux disease) Former smoker Irregular heart beat Chronic systolic heart failure Hard of hearing Obstructive sleep apnea Zach's granulomatosis BPH (benign prostatic hyperplasia) Chronic kidney disease, stage 3 (moderate) Claudication Prediabetes Essential hypertension History of tobacco use Shortness of breath Chest pain Abnormal stress echo Surgical History Hx of bilateral cataract extraction S/P TURP Cataract extraction status AV fistula History of left heart catheterization (11/12/18) History of endoscopy (01/02/16) History of prostate biopsy (01/11/14) S/P arthroscopic surgery of left knee (1989) H/O arthroscopy of left knee (1988) Status post biopsy of kidney (12/2013) History of total right hip arthroplasty (02/05/16) History of colonoscopy Family History Mother CAD (coronary artery disease) Congestive heart failure Father Prostate cancer Lung cancer Brother Colon cancer Sister Colon cancer Grandmother Diabetes Social History household members: spouse housing: house 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 Normal [facility] Office Vis [place] 12-11-2023 Internal Medicine Office Visit [facility] [place] [address] [place] [address] OFFICE VISIT Date of Service: 12/11/23 MR#: [id number] Acct: [id number] Name: FRANKLIN BURTON Rep #: [id number] : 1945 Provider: EDER de la rosa Age/Sex: 78/M Location: [facility] Status: Signed with Addenda ADDENDUM by EDER Livingston on 12/11/23 at 1403 HPI Details: FRANKLIN BURTON, is a 78 M who presents to the office today for Assessment and Plan Assessment and Plan (1) Essential hypertension: Status: Chronic (2) ESRD on peritoneal dialysis: Status: Acute (3) BPH (benign prostatic hyperplasia): Status: Chronic Qualifiers: Lower urinary tract symptom presence: symptoms absent Qualified Code(s): N40.0 - Benign prostatic hyperplasia without lower urinary tract symptoms (4) GERD (gastroesophageal reflux disease): Status: Acute Qualifiers: Esophagitis presence: without esophagitis Qualified Code(s): K21.9 - Gastro-esophageal reflux disease without esophagitis (5) Prediabetes: Status: Chronic (6) Chronic back pain: Status: Chronic Qualifiers: Back pain location: low back pain Back pain laterality: bilateral Sciatica presence: without sciatica Qualified Code(s): M54.50 - Low back pain, unspecified; G89.29 - Other chronic pain (7) RLS (restless legs syndrome): Status: Acute (8) Tremor of both hands: Status: Acute (9) Zach's granulomatosis: Status: Chronic Qualifiers: Granulomatosis renal involvement: with renal involvement Qualified Code(s): M31.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 Discussed fall risks. Orders: Orders POC A1C Today R73.03 - Prediabetes Medications: Refilled metoprolol tartrate 25 mg PO DAILY 90 tabs 1RF BP omeprazole 40 mg PO DAILY 90 caps 1RF stomach 12/11/23 1403 Date Denise Livingston ASSOCIATE APPLICATION DEVELOPER-C cc: * Signed Intake Vital Signs 09/09/23 09:08 12/11/23 10:03 Height 5 ft 8 in 5 ft 8 in Weight: 232 lb 228 lb BMI 35.2 34.7 BP 110/68 122/80 H Blood Pressure Location Rt brachial Rt brachial Position Sitting Sitting Respiration 18 16 Pulse 56 L 82 Pulse Source Monitor Monitor Temp 98.5 F 98.9 F Temp Source Temporal Temporal Pulse Oximetry (%) 98 92 Oxygen Delivery Method room air room air Intake Visit Reasons: 3 M FU Chief Complaint: f/u Plastic Cutter Required: No Is patient in pain?: No Allergies finasteride Allergy (Intermediate, Verified 12/11/23 10:03) mastodynia aspirin Adverse Reaction (Severe, Verified 12/11/23 09:50) cannot take d/t Zach's Vasculitis Medications ???Medication ???Instructions ???Recorded ???Confirmed ???Type handicap placard #1 ea 08/29/22 12/11/23 Rx azathioprine 50 mg tablet 50 mg PO DAILY 03/12/23 12/11/23 History handicap placard #1 ea 03/12/23 12/11/23 Rx salicylic acid 6 % topical cream 1 applic topical QHS #454 grams 09/09/23 12/11/23 Rx triamcinolone acetonide 0.1 % 1 applic topical DAILY PRN 09/09/23 12/11/23 Rx topical ointment rash/itching #15 grams oxycodone-acetaminoph en 5 mg-325 1 tab PO Q8H PRN pain 30 days #90 11/21/23 12/11/23 Rx mg tablet (Percocet) tabs gabapentin 100 mg capsule 200 mg (2 x 100 mg) PO QHS #60 caps 12/01/23 12/11/23 Rx pregabalin 25 mg capsule 25 mg PO BID #60 caps 12/01/23 12/11/23 Rx mirtazapine 15 mg tablet 15 mg PO QHS #30 tabs 12/10/23 12/11/23 Rx metoprolol tartrate 25 mg tablet 25 mg PO DAILY BP #90 tabs 12/11/23 12/11/23 Rx omeprazole 40 mg capsule,delayed 40 mg PO DAILY stomach #90 caps 12/11/23 12/11/23 Rx release Have you fallen in the past year?: No Nurse's Note: Is wanting scripts rewritten for metoporol, and omeprazole. Is concerned about hands shaking, has been going on last 3 months . Is worse upon movement and holding things. Denies dropping anything. bilateral hands are affected. he notices it more when he needs to hold still. [facility] Medical History Abnormal stress echo Anemia Arthritis Back pain BPH (benign prostatic hyperplasia) Cardiology follow-up encounter Chest pain Chronic kidney disease, stage 3 (moderate) Chronic systolic heart failure Claudication Dialysis patient Essential hypertension Family history of malignant neoplasm of colon Former smoker Gastric reflux GERD (gastroesophageal reflux disease) Hard of hearing History of CHF (congestive heart failure) History of echocardiogram History of edema History of renal disease History of tobacco use Irregular heart beat Neuropathy Normal stress echocardiogram Obstructive sleep apnea Prediabetes Prostate disease Rheumatoid arthritis Shortness of breath Wears dentu (more content not included)... Normal [facility] - Hematology and Cell countson 09-09-2023 HbA1c (Bld) [Mass fraction] 6.4 % 4.2-6.3 [facility] No Panel InformationOrdered By: Ally Pruitt on 05-26-2023 Prostate Specific Antigen Total 11.00 ng/mL 0.0-4.0 [facility] Comment on above: This test was perfor med using the TPSA assay method for [employer] chemistry system. Values obtained with differentassay methods cannot be used interchangably.When changing PSA assays in the course of monitoring apatient, additional sequential testing should be carriedout to confirm baseline values. Absolute lymphocyte countOrd ered By: Matilde Noguera on 04-03-2023 Lymphocytes Auto (Unsp spec) [#/Vol] 0.63 10*3/uL 0.83-4.51 [facility] Basophil percentageOrdered B y: Matilde Noguera on 04-03-2023 Basophils/100 WBC (Bld) 1.0 % 0-[address] [facility] Bilirubin [Mass/Vol] 0.50 mg/dL 0.20-1.00 [facility] Comment on above: For patients on eltr ombopag therapy, use of Dimension [place] TBIL is not recommended. Chloride [Moles/Vol] 102 mmol/L 98-107 [facility] Eosinophils/100 WBC (Bld) 4.4 % 0-5 [facility] Glucose [Mass/Vol] 132 mg/dL 74-106 [facility] Comment on above: Fasting Glucose resu lt greater than or equal to 126 mg/dL suggests DIABETES MELLITUS per A.D.A. criteria. Neutrophils (Bld) [#/Vol] 3.5 10*3/uL 2.0-7.7 [facility] Neutrophils/100 WBC (Bld) 72.0 % 47-70 [facility] Potassium [Moles/Vol] 3.8 mmol/L 3.5-5.1 [facility] Protein [Mass/Vol] 5.5 g/dL 6.4-8.2 [facility] Sodium [Moles/Vol] 138 mmol/L 136-145 [facility] WBC (Bld) [#/Vol] 4.8 10*3/uL 4.4-11.0 [facility] Blood erythrocytes count (nu mber/volume)Ordered By: Matilde Noguera on 04-03-2023 RBC (Bld) [#/Vol] 2.97 10*6/uL 4.6-6.2 [facility] Blood hemoglobin measurement (mass/volume)Ordered By: Matilde Noguera on 04-03-2023 Hemoglobin (Bld) [Mass/Vol] 9.2 g/dL 13.0-16.5 [facility] Blood lymphocytes/100 leukoc ytesOrdered By: Matilde Noguera on 04-03-2023 Lymphocytes/100 WBC (Bld) 13.1 % 19-41 [facility] Blood monocytes/100 leukocyt esOrdered By: Matilde Noguera on 04-03-2023 Monocytes/100 WBC (Bld) 8.9 % 0-[address] [facility] Blood platelet mean volumeOr dered By: Matilde Noguera on 04-03-2023 Platelet mean volume (Bld) [Entitic vol] 9.6 fL 6.2-12.0 [facility] Determination of erythrocyte mean corpuscular volume (MCV)Ordered By: Matilde Noguera on 04-03-2023 MCV (RBC) [Entitic vol] 101.0 fL 80-[address] [facility] Hematocrit Auto (Bld) [Volum e fraction]Ordered By: Matilde Noguera on 04-03-2023 Hematocrit (Bld) [Volume fraction] 30.0 % 40-54 [facility] Iron measurement (mass/mass) Ordered By: Matilde Noguera on 04-03-2023 Iron (Unsp spec) [Mass/Mass] 53 ug/dL 65-175 [facility] - Chemistry and C hemistry - challengeOrdered By: Matilde Noguera on 04-03-2023 ALP [Catalytic activity/Vol] 85 U/L 45-117 [facility] ALT [Catalytic activity/Vol] 17 U/L 16-61 [facility] CO2 [Moles/Vol] 33.0 mmol/L 21.0-32.0 [facility] Cobalamin (Vitamin B12) [Mass/Vol] 538 pg/mL 211-911 [facility] Globulin (S) [Mass/Vol] 2.8 g/dL 2.2-4.[address] [facility] Urea nitrogen/Creatinine [Mass ratio] 8.4 mg/mg 10-20 [facility] - Hematology and Cell countsOrdered By: Matilde Noguera on 04-03-2023 Erythrocyte distribution width (RBC) [Entitic vol] 56.4 fL 35.1-43.9 [facility] Erythrocyte distribution width (RBC) [Ratio] 15.1 % 11.6-14.6 [facility] Immature granulocytes/100 WBC (Bld) 0.600 % 0.0-0.9 [facility] Comment on above: IG% - Immature Granu locytes (promyelocytes, myelocytes and metamyelocytes) > 1% indicates that a LEFT SHIFT is Present. MCH (RBC) [Entitic mass] 31.0 pg 27.0-32.0 [facility] Nucleated RBC/100 WBC (Bld) [Ratio] 0 % 0-5 [facility] MCHC Auto (RBC) [Mass/Vol]Or dered By: Matilde Noguera on 04-03-2023 MCHC (RBC) [Mass/Vol] 30.7 g/dL 32-36 [facility] No Panel InformationOrdered By: Matilde Noguera on 04-03-2023 Estimated GFR (MDRD) Amer 24 mL/min >60 [facility] Comment on above: GFR Calc Estimated GFR (MDRD) Non-Af Amer 20 mL/min >60 [facility] Comment on above: Non- GFR Calc Total Iron Binding Capacity 220 ug/dL 250-450 [facility] Platelets bldOrdered By: Kwasi Noguera on 04-03-2023 Platelets (Bld) [#/Vol] 101 10*3/uL 150-450 [facility] Serum or plasma albumin satish urement (mass/volume)Ordered By: Matilde Noguera on 04-03-2023 Albumin [Mass/Vol] 2.7 g/dL 3.2-5.0 [facility] Serum or plasma albumin/glob ulin mass ratioOrdered By: Matilde Noguera on 04-03-2023 Albumin/Globulin [Mass ratio] 1.0 {ratio} 0.9-2.4 [facility] Serum or plasma calcium satish urement (mass/volume)Ordered By: Matilde Noguera on 04-03-2023 Calcium [Mass/Vol] 8.5 mg/dL 8.5-10.1 [facility] Serum or plasma creatinine m easurement (mass/volume)Ordered By: Matilde Noguera on 04-03-2023 Creatinine [Mass/Vol] 3.22 mg/dL 0.70-1.30 [facility] Comment on above: The validity of the calculated GFR & GFRAA in patients over 70 years has not been determined. Clinical correlation is essential. Serum or plasma ferritin deandre surement (mass/volume)Ordered By: Matilde Noguera on 04-03-2023 Ferritin [Mass/Vol] 754 ng/mL 26-388 [facility] Serum or plasma iron saturat ion measurement (mass fraction)Ordered By: Matilde Noguera on 04-03-2023 Iron saturation [Mass fraction] 24.1 % 15.0-55.0 [facility] Serum or plasma urea nitroge n measurement (mass/volume)Ordered By: Matilde Noguera on 04-03-2023 Urea nitrogen [Mass/Vol] 27 mg/dL 7-18 [facility] Thin prep Papanicolaou smear with manual screeningOrdered By: Matilde Noguera on 04-03-2023 Thin prep Papanicolaou smear with manual screening 18 U/L 15-37 [facility] Thin prep Papanicolaou smear with manual screening 3 5-15 [facility] Whole blood hemoglobin A1c/t otal hemoglobin ratio (mass fraction)Ordered By: Matilde Noguera on 04-03-2023 HbA1c (Bld) [Mass fraction] 5.8 % 3.8-5.6 [facility] Comment on above: Normal < 5.7 % Predi abetic 5.7 - 6.4 % Diabetic >or= 6.5 % Please note range changes. [place] 03-10-2023 CNDS HNO ID: [id number] Author: James Yadav MD Service: Hospital Medicine Author Type: Physician Type: Discharge Summary Filed: 03/10/2023 2:55 PM Note Text: DISCHARGE SUMMARY PATIENT NAME: Franklin Burton Code Status: Full Code Highest Readmission Risk Score: 22 The 30 day readmissions risk score is derived from an internally validated risk model which evaluates patient level characteristics, utilization history, medication orders and lab results up until the day of discharge. Patients with a score of 40 or above are considered highest risk for readmission. Specific patient level drivers will be listed at the bottom of the summary. Admission Information Admission Information ADMIT DATE: 02/28/2023 DISCHARGE DATE 03/10/2023 MY DOCTORS AND MEDICAL TEAM: My Main Hospital Doctor: James Yadav,* Primary Care Provider: No primary care provider on file. My Medical Team Members: Treatment Team: Attending Provider: James Yadav MD Consulting: Daniel Pacheco MD Primary Service: CANDACE BARCLAY MY CONDITION AT DISCHARGE: Stable REASON I WAS IN THE HOSPITAL: Bacterial peritonitis SUMMARY OF WHAT HAPPENED WHILE I WAS IN THE HOSPITAL: 77-year-old male with history of end-stage renal disease who recently had peritoneal dialysis catheter placed. Presented to hospital with abdominal pain. Diagnosed with peritoneal dialysis catheter related to bacterial peritonitis. Peritoneal fluid cultures growing stenotrophomonas maltophilia. Peritoneal dialysis catheter was removed and patient treated with IV antibiotics and oral antibiotics as well. Patient had tunneled hemodialysis catheter placed by vascular surgery. Significant improvement overall and patient stable for discharge home. Patient to follow-up with primary care physician in 1 week. Outpatient hemodialysis has been set up. 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 His peritoneal dialysis catheter was removed 03/05/2023. He was started on levofloxacin eravacycline inpatient with plans to send home on levofloxacin and minocycline. 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 - S/p PD catheter removal 03/05. - Cont levofloxacin and eravacycline (home on levofloxacin and minocycline) - Patient needs a community HD chair. CM following. 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 HD via LUE fistula 03/05 # Abdominal pain due to peritonitis - Oxycodone worked better than Dilaudid - Oxycodone 5 to 10 mg p.o. for moderate to severe pain respectively #Peripheral neuropathy. Controlled. Continue gabapentin 100 mg p.o. twice daily #HTN. Controlled. Continue metoprolol 12.5 mg p.o. twice daily #CKD anemia. Hb stable. Monitor #Constipation. 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 Normal [facility] THERAPY NTon 03-10-2023 THERAPY NT HNO ID: [id number] Author: Judith Dupont, PT Service: Physical Therapy Author Type: Physical Therapist Type: Therapy (PT/OT/Speech/Resp) Filed: 03/10/2023 9:47 AM Note Text: PHYSICAL THERAPY MISSED VISIT SERVICE DATE: 03/10/2023 SERVICE TIME: 945 to 945 ROOM: [place] [address] Patient not seen due to Test / Procedure. Called to see patient, transportation present to take patient to HD. Will reattempt as able. SIGNATURE: Judith Dupont, PT PATIENT NAME: Franklin Burton DATE: March 10, 2023 TIME: 9:46 AM Normal [facility] NUTRITIONon 03-09-2023 NUTRITION HNO ID: [id number] Author: Lacey Garcia RD Service: Nutrition Therapy Author Type: Registered Dietitian Type: Nutrition Filed: 03/09/2023 2:55 PM Note Text: INITIAL ASSESSMENT SERVICE DATE: 03/09/2023 SERVICE TIME: 1140 AM Nutrition Assessment: Recommended Malnutrition Diagnosis: Mild Protein-Calorie Malnutrition In the context of: Acute Illness or Injury Based on: Insufficient Energy Intake Nutrition Diagnosis: Problem: Suboptimal oral intake Related to: Acute illness As evidenced by: Medical condition, Patient/family self-report Estimated kilocalorie needs: 2653-2666 Calorie Calculation Method: [place] Body Weight, 30-35 kcals/kg Estimated protein needs (grams): 84-105 Grams protein determined by: 1.2 - 1.5 g/kg, [place] body weight Care Plan: Continue current diet Supplements: Nepro (BID) Monitor and Evaluation: Meet greater than 75% of estimated needs, Monitor bowel function, Monitor fluid/electrolyte balance, Monitor labs, I/Os, vital signs, weight Discharge Recommendations: Diet Diet: Renal HPI: 77 yo male, LOS 8 days, presented with abdominal pain - found to have peritoneal dialysis related bacterial peritonitis with stenotrophomonas maltophilia, on antibiotics, ID and Nephrology following, awaiting OP dialysis setup, on dental soft diet with po good, BM 03/03. Meds and labs reviewed - lytes noted, afebrile, no edema with wt 96.5 kg (admit wt 96.5 kg), and GI with tender abdomen. Intake History: Nutrition Intake Prior to Admission: Greater than 75% estimated energy needs greater than or equal to 3 months Current Nutrition Intake: Less than 75% estimated energy needs Current Intake Over time: Greater than or equal to 7 days (reports decreased appetite and not hungry) Diet Orders (From admission, onward) Start Ordered 03/08/23 1800 DIET FOOD CONSISTENCY CONTROLLED START NOW Question: Food Consistency Answer: DENTAL SOFT 03/08/23 5957 Anthropometrics: Height: 172.7 cm (5' 8") Weight: 96.5 kg (212 lb 11.2 oz) Dosing Weight: 69.9 kg (154 lb) Usual Weight: 96.2 kg (212 lb) Past year Usual Weight Obtained From: Patient Body mass index is 32.34 kg/m?. Weight change percentage over time: Stable Last Wt 02/28/23 : 96.5 kg (212 lb 11.2 oz) 12/01/22 : 96.6 kg (213 lb) 12/03/13 : 88 kg (194 lb) 03/22/13 : 92.1 kg (203 lb) 02/26/13 : 91.9 kg (202 lb 11.2 oz) 02/04/13 : 88.6 kg (195 lb 6.4 oz) 01/19/13 : 90.7 kg (200 lb) 01/11/13 : 89.8 kg (198 lb) 12/28/12 : 91.7 kg (202 lb 3.2 oz) 12/08/12 : 90.7 kg (200 lb) 12/03/12 : 92.4 kg (203 lb 12.8 oz) 09/07/12 : 97 kg (213 lb 12.8 oz) 09/17/11 : 91.9 kg (202 lb 9.6 oz) Physical Exam: Subcutaneous fat loss: No fat loss Muscle loss: No muscle loss Potential micronutrient deficiency: No deficiency identified Edema/Ascites: No edema GI Symptoms: None Functional Status: No Change Potential Signs of Inflammation: Hypoalbuminemia, Chronic condition, Microbiologic cultures CKD MNT Billing: $ Initial Assessment: 1-15 minutes SIGNATURE: Lacey Garcia RD PATIENT NAME: Franklin Burton DATE: March 09, 2023 TIME: 10:17 AM Normal [facility] Renal function 2000 panelon 03-09-2023 Albumin [Mass/Vol] 3.0 g/dL Low 3.9-4.9 [facility] Comment on above: Order Comment: Camilo redman Type: BLOOD SPECIMEN Ordering Facility: [facility] Address: [address] [place] [address] Performed By: #### 2 4362-6 #### [facility] CLIA [id number] [address] STATES [place] [facility] Anion gap [Moles/Vol] 9 mmol/L Normal 9-18 [facility] Comment on above: Order Comment: Camilo redman Type: BLOOD SPECIMEN Ordering Facility: [facility] Address: [address] [place] [address] Performed By: #### 2 4362-6 #### [facility] CLIA [id number] [address] [place] Calcium [Mass/Vol] 8.4 mg/dL Low 8.5-10.2 [facility] Comment on above: Order Comment: Camilo redman Type: BLOOD SPECIMEN Ordering Facility: [facility] Address: [address] [place] [address] Performed By: #### 2 4362-6 #### [facility] CLIA [id number] [address] [place] Chloride [Moles/Vol] 100 mmol/L Normal 97-105 [facility] Comment on above: Order Comment: Speci men Type: BLOOD SPECIMEN Ordering Facility: [facility] Address: [address] [place] [address] Performed By: #### 2 4362-6 #### [facility] CLIA [id number] [address] [place] CO2 [Moles/Vol] 24 mmol/L Normal 22-30 [facility] Comment on above: Order Comment: Speci men Type: BLOOD SPECIMEN Ordering Facility: [facility] Address: [address] [place] [address] Performed By: #### 2 4362-6 #### [facility] CLIA [id number] [address] [place] [address] [place] Creatinine [Mass/Vol] 3.44 mg/dL High 0.73-1.22 [facility] Comment on above: Order Comment: Speci men Type: BLOOD SPECIMEN Ordering Facility: [facility] Address: [address] [place] [address] Performed By: #### 2 4362-6 #### [facility] CLIA [id number] [address] Creatinine and Glomerular filtration rate.predicted panel (S/P/Bld) 18 mL/min/1.73m??? Low >=60 [facility] Comment on above: Order Comment: Speci men Type: BLOOD SPECIMEN Ordering Facility: [facility] Address: [address] [place] [address] Result Comment: Zoë mated Glomerular Filtration Rate (eGFR) is calculated using the 2020 CKD-EPI creatinine equation. This equation utilizes serum creatinine, sex, and age as parameters. The creatinine assay has traceable calibration to isotope dilution-mass spectrometry. Refer to KDIGO guidelines for clinical interpretation. In patients with unstable renal function, e.g. those with acute kidney injury, the eGFR may not accurately reflect actual GFR. Performed By: #### 2 4362-6 #### [facility] CLIA [id number] [address] [place] [address] [place] Glucose [Mass/Vol] 99 mg/dL Normal 74-99 [facility] Comment on above: Order Comment: Camilo redman Type: BLOOD SPECIMEN Ordering Facility: [facility] Address: [address] [place] [address] Result Comment: The [place] [employer] (ADA) provides guidance for cutoff values for fasting glucose and random glucose. The ADA defines fasting as no caloric intake for at least 8 hours. Fasting plasma glucose results between 100 to 125 mg/dL indicate increased risk for diabetes (prediabetes). Fasting plasma glucose results greater than or equal to 126 mg/dL meet the criteria for diagnosis of diabetes. In the absence of unequivocal hyperglycemia, results should be confirmed by repeat testing. In a patient with classic symptoms of hyperglycemia or hyperglycemic crisis, random plasma glucose results greater than or equal to 200 mg/dL meet the criteria for diagnosis of diabetes. Reference: Standards of Medical Care in Diabetes 2016, [place] [employer]. Diabetes Care. 2016.39(Suppl 1). Performed By: #### 2 4362-6 #### [facility] CLIA [id number] [address] [place] [address] [place] Phosphate [Mass/Vol] 3.2 mg/dL Normal 2.7-4.8 [facility] Comment on above: Order Comment: Camilo redman Type: BLOOD SPECIMEN Ordering Facility: [facility] Address: [address] [place] [address] Performed By: #### 2 4362-6 #### [facility] CLIA [id number] [address] [place] [address] [place] Potassium [Moles/Vol] 4.6 mmol/L Normal 3.7-5.1 [facility] Comment on above: Order Comment: Camilo redman Type: BLOOD SPECIMEN Ordering Facility: [facility] Address: [address] [place] [address] Performed By: #### 2 4362-6 #### [facility] CLIA [id number] [address] Sodium [Moles/Vol] 133 mmol/L Low 136-144 [facility] Comment on above: Order Comment: Speci men Type: BLOOD SPECIMEN Ordering Facility: [facility] Address: [address] [place] [address] Performed By: #### 2 4362-6 #### [facility] CLIA [id number] [address] Urea nitrogen [Mass/Vol] 47 mg/dL High 9-24 [facility] Comment on above: Order Comment: Speci men Type: BLOOD SPECIMEN Ordering Facility: [facility] Address: [address] [place] [address] Performed By: #### 2 4362-6 #### [facility] CLIA [id number] [address] NURSING PROGon 03-08-2023 NURSING PROG HNO ID: [id number] Author: Kwasi Milton, RN Service: Nursing Author Type: Registered Nurse Type: Nursing Progress Note Filed: 03/08/2023 6:12 PM Note Text: Nursing Progress Note Patient Name: Franklin Burton Patient Location: [id number]/[place] [id number] [id number] Top of patient's right arm noted to be slightly edematous, red, and warm. Dr. Yadav notified. Received OK to remove IV access. This note was completed by: Kwasi Milton Normal [facility] Renal function 2000 panelon 03-08-2023 Albumin [Mass/Vol] 2.8 g/dL Low 3.9-4.9 [facility] Comment on above: Order Comment: Speci men Type: BLOOD SPECIMEN Ordering Facility: [facility] Address: [address] [place] [address] Performed By: #### 5 7021-8 #### [facility] CLIA [id number] [address] [place] Anion gap [Moles/Vol] 10 mmol/L Normal 9-18 [facility] Comment on above: Order Comment: Speci men Type: BLOOD SPECIMEN Ordering Facility: [facility] Address: [address] [place] [address] Performed By: #### 5 7021-8 #### [facility] CLIA [id number] [address] [place] [address] [place] Calcium [Mass/Vol] 8.2 mg/dL Low 8.5-10.2 [facility] Comment on above: Order Comment: Speci men Type: BLOOD SPECIMEN Ordering Facility: [facility] Address: [address] [place] [address] Performed By: #### 5 7021-8 #### [facility] CLIA [id number] [address] [place] [address] [place] Chloride [Moles/Vol] 99 mmol/L Normal 97-105 [facility] Comment on above: Order Comment: Speci men Type: BLOOD SPECIMEN Ordering Facility: [facility] Address: [address] [place] [address] Performed By: #### 5 7021-8 #### [facility] CLIA [id number] [address] [place] CO2 [Moles/Vol] 24 mmol/L Normal 22-30 [facility] Comment on above: Order Comment: Speci men Type: BLOOD SPECIMEN Ordering Facility: [facility] Address: [address] [place] [address] Performed By: #### 5 7021-8 #### [facility] CLIA [id number] [address] [place] [address] [place] Creatinine [Mass/Vol] 2.79 mg/dL High 0.73-1.22 [facility] Comment on above: Order Comment: Speci men Type: BLOOD SPECIMEN Ordering Facility: [facility] Address: [address] [place] [address] Performed By: #### 5 7021-8 #### [facility] CLIA [id number] [address] [place] Creatinine and Glomerular filtration rate.predicted panel (S/P/Bld) 23 mL/min/1.73m??? Low >=60 [facility] Comment on above: Order Comment: Camilo redman Type: BLOOD SPECIMEN Ordering Facility: [facility] Address: [address] [place] [address] Result Comment: Zoë mated Glomerular Filtration Rate (eGFR) is calculated using the 2020 CKD-EPI creatinine equation. This equation utilizes serum creatinine, sex, and age as parameters. The creatinine assay has traceable calibration to isotope dilution-mass spectrometry. Refer to KDIGO guidelines for clinical interpretation. In patients with unstable renal function, e.g. those with acute kidney injury, the eGFR may not accurately reflect actual GFR. Performed By: #### 5 7021-8 #### [facility] CLIA [id number] [address] [place] [address] [place] Glucose [Mass/Vol] 96 mg/dL Normal 74-99 [facility] Comment on above: Order Comment: Camilo redman Type: BLOOD SPECIMEN Ordering Facility: [facility] Address: [address] [place] [address] Result Comment: The [place] [employer] (ADA) provides guidance for cutoff values for fasting glucose and random glucose. The ADA defines fasting as no caloric intake for at least 8 hours. Fasting plasma glucose results between 100 to 125 mg/dL indicate increased risk for diabetes (prediabetes). Fasting plasma glucose results greater than or equal to 126 mg/dL meet the criteria for diagnosis of diabetes. In the absence of unequivocal hyperglycemia, results should be confirmed by repeat testing. In a patient with classic symptoms of hyperglycemia or hyperglycemic crisis, random plasma glucose results greater than or equal to 200 mg/dL meet the criteria for diagnosis of diabetes. Reference: Standards of Medical Care in Diabetes 2016, [place] [employer]. Diabetes Care. 2016.39(Suppl 1). Performed By: #### 5 7021-8 #### [facility] CLIA [id number] 1 [place] [address] [place] Phosphate [Mass/Vol] 3.1 mg/dL Normal 2.7-4.8 [facility] Comment on above: Order Comment: Speci men Type: BLOOD SPECIMEN Ordering Facility: [facility] Address: [address] [place] [address] Performed By: #### 5 7021-8 #### [facility] CLIA [id number] [address] [place] Potassium [Moles/Vol] 4.3 mmol/L Normal 3.7-5.1 [facility] Comment on above: Order Comment: Speci men Type: BLOOD SPECIMEN Ordering Facility: [facility] Address: [address] [place] [address] Performed By: #### 5 7021-8 #### [facility] CLIA [id number] [address] Sodium [Moles/Vol] 133 mmol/L Low 136-144 [facility] Comment on above: Order Comment: Speci men Type: BLOOD SPECIMEN Ordering Facility: [facility] Address: [address] [place] [address] Performed By: #### 5 7021-8 #### [facility] CLIA [id number] [address] [place] [facility] Urea nitrogen [Mass/Vol] 37 mg/dL High 9-24 [facility] Comment on above: Order Comment: Speci men Type: BLOOD SPECIMEN Ordering Facility: [facility] Address: [address] [place] [address] Performed By: #### 5 7021-8 #### [facility] CLIA [id number] [address] [place] ANES POSTPROC EVALon 023 ANES POSTPROC EVAL HNO ID: [id number] Author: Junior Garcia MD Service: Anesthesiology Author Type: Anesthesiologist Type: Anesthesia Postprocedure Evaluation Filed: 03/07/2023 6:40 AM Note Text: POST ANESTHESIA EVALUATION NOTE : 1945 Procedure Summary Date: 03/05/23 Room / Location: [place] OR 17 / [place] OR Anesthesia Start: 843 Anesthesia Stop: 939 Procedure: REMOVAL OF PERMANENT INTRAPERITONEAL CATHETER (Abdomen) Diagnosis: Peritonitis (HCC) (Peritonitis (HCC) [K65.9]) Surgeons: Louie Lee MD Responsible Provider: Junior Garcia MD Anesthesia Type: general ASA Status: 3 Anesthesia Type: general Airway Type: ETT Last Vitals Vitals Value Taken Time BP 138/66 03/05/23 1015 Temp 36.1 ?C (97 ?F) 03/05/23 1015 HR SpO2 75 03/05/23 1023 Resp 17 03/05/23 1023 SpO2 94 % 03/05/23 1023 Vitals shown include unvalidated device data. Post Anesthesia Patient Status Patient Evaluation: PACU. PACU/ICU Patient Condition: stable. Anticipated Disposition: inpatient floor planned admission. Neurological Status: aware and responsive. Pulmonary Status: breathing comfortably on supplemental oxygen Airway Control: returned to baseline unsupported. Cardiovascular Status: stable. Pain Management: clinically adequate Postoperative Hydration: acceptable. Intraoperative Events: no significant anesthesia events Post Operative Nausea/Vomiting Status: no significant post operative nausea or vomiting Recommendation: further care per PACU/ICU/floor team. Anesthesia Observations No Documentation SIGNATURE: Junior Garcia MD PATIENT NAME: Franklin Burton DATE: March 07, 2023 TIME: 6:39 AM CSN: [id number] Normal [facility] NURSING PROGon 03-07-2023 NURSING PROG HNO ID: [id number] Author: Marine Perdomo RN Service: ? Author Type: Registered Nurse Type: Nursing Progress Note Filed: 03/07/2023 12:19 PM Note Text: Hemodialysis tx completed Negra well Stable Fluid Balance -1000 ml off Last bp 94/67 p 100 rr 18 temp 36.5 See flow sheet for details Report given Normal [facility] Renal function 2000 panelon 03-07-2023 Albumin [Mass/Vol] 3.2 g/dL Low 3.9-4.9 [facility] Comment on above: Order Comment: Speci men Type: BLOOD SPECIMEN Ordering Facility: [facility] Address: [address] [place] [address] Performed By: #### 2 2654-6 #### [facility] CLIA [id number] [address] [place] Anion gap [Moles/Vol] 7 mmol/L Low 9-18 [facility] Comment on above: Order Comment: Speci men Type: BLOOD SPECIMEN Ordering Facility: [facility] Address: [address] [place] [address] Performed By: #### 2 4362-6 #### [facility] CLIA [id number] 1 [place] [address] [place] Calcium [Mass/Vol] 8.8 mg/dL Normal 8.5-10.2 [facility] Comment on above: Order Comment: Speci men Type: BLOOD SPECIMEN Ordering Facility: [facility] Address: [address] [place] [address] Performed By: #### 2 4362-6 #### [facility] [facility] CLIA [id number] [address] [place] Chloride [Moles/Vol] 100 mmol/L Normal 97-105 [facility] Comment on above: Order Comment: Speci men Type: BLOOD SPECIMEN Ordering Facility: [facility] Address: [address] [place] [address] Performed By: #### 2 4362-6 #### [facility] CLIA [id number] [address] [place] CO2 [Moles/Vol] 24 mmol/L Normal 22-30 [facility] Comment on above: Order Comment: Speci men Type: BLOOD SPECIMEN Ordering Facility: [facility] Address: [address] [place] [address] Performed By: #### 2 4362-6 #### [facility] CLIA [id number] [address] [place] Creatinine [Mass/Vol] 2.70 mg/dL High 0.73-1.22 [facility] Comment on above: Order Comment: Speci men Type: BLOOD SPECIMEN Ordering Facility: [facility] Address: [address] [place] [address] Performed By: #### 2 4362-6 #### [facility] CLIA [id number] 1 [place] [address] [place] Creatinine and Glomerular filtration rate.predicted panel (S/P/Bld) 24 mL/min/1.73m??? Low >=60 [facility] Comment on above: Order Comment: Camilo redman Type: BLOOD SPECIMEN Ordering Facility: [facility] Address: [place] [address] Result Comment: Zoë mated Glomerular Filtration Rate (eGFR) is calculated using the 2020 CKD-EPI creatinine equation. This equation utilizes serum creatinine, sex, and age as parameters. The creatinine assay has traceable calibration to isotope dilution-mass spectrometry. Refer to KDIGO guidelines for clinical interpretation. In patients with unstable renal function, e.g. those with acute kidney injury, the eGFR may not accurately reflect actual GFR. Performed By: #### 2 4362-6 #### [facility] CLIA [id number] 1 [place] [address] [place] Glucose [Mass/Vol] 101 mg/dL High 74-99 [facility] Comment on above: Order Comment: Specloretta redman Type: BLOOD SPECIMEN Ordering Facility: [facility] Address: [address] [place] [address] Result Comment: The [place] Diabetes [employer] (ADA) provides guidance for cutoff values for fasting glucose and random glucose. The ADA defines fasting as no caloric intake for at least 8 hours. Fasting plasma glucose results between 100 to 125 mg/dL indicate increased risk for diabetes (prediabetes). Fasting plasma glucose results greater than or equal to 126 mg/dL meet the criteria for diagnosis of diabetes. In the absence of unequivocal hyperglycemia, results should be confirmed by repeat testing. In a patient with classic symptoms of hyperglycemia or hyperglycemic crisis, random plasma glucose results greater than or equal to 200 mg/dL meet the criteria for diagnosis of diabetes. Reference: Standards of Medical Care in Diabetes 2016, [place] [employer]. Diabetes Care. 2016.39(Suppl 1). Performed By: #### 2 4362-6 #### [facility] CLIA [id number] 1 [place] [address] [place] Phosphate [Mass/Vol] 2.6 mg/dL Low 2.7-4.8 [facility] Comment on above: Order Comment: Speci men Type: BLOOD SPECIMEN Ordering Facility: [facility] Address: [address] [place] [address] Performed By: #### 2 4362-6 #### [facility] CLIA [id number] [address] [facility] Potassium [Moles/Vol] 4.9 mmol/L Normal 3.7-5.1 [facility] Comment on above: Order Comment: Speci men Type: BLOOD SPECIMEN Ordering Facility: [facility] Address: [address] [place] [address] Performed By: #### 2 4362-6 #### [facility] CLIA [id number] [address] Sodium [Moles/Vol] 131 mmol/L Low 136-144 [facility] Comment on above: Order Comment: Speci men Type: BLOOD SPECIMEN Ordering Facility: [facility] Address: [address] [place] [address] Performed By: #### 2 4362-6 #### [facility] CLIA [id number] [address] Urea nitrogen [Mass/Vol] 40 mg/dL High 9-24 [facility] Comment on above: Order Comment: Speci men Type: BLOOD SPECIMEN Ordering Facility: [facility] Address: [address] [place] [address] Performed By: #### 2 4362-6 #### [facility] CLIA [id number] [address] OF [facility] THERAPY NTon 03-07-2023 THERAPY NT HNO ID: [id number] Author: Charlotte Agosto OTR/L Service: Occupational Therapy Author Type: Occupational Therapist Type: Therapy (PT/OT/Speech/Resp) Filed: 03/07/2023 3:43 PM Note Text: Occupational Therapy Evaluation SERVICE DATE: 03/07/2023 SERVICE TIME: 1420 to 1443 ROOM: [id number] Recommended Discharge Disposition: Home OT Recommended Discharge Disposition Comments: Family able to assist as needed Anticipated Discharge Needs: Physical Assist at Home Physical Assist at Home for: Transportation, Shopping, Cleaning, Laundry OT 6 Clicks Score: 19 Patient seen bedside, agreeable to OT. Patient is currently requiring increased assist with ADLs and functional transfers due to increased weakness. Pt motivated to work with OT. Recommend Home OT and assist from family as needed. 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) s/p laparoscopic peritoneal dialysis catheter placement 12/31/22 Response to Therapy Interventions: Good Participation in Activities Continued Skilled Needs Due to: Functional Impairment Occupational Therapy Problem List: Impaired Self Care Cognition/Communicati on Deficits Responsiveness: Alert Follows Commands: 3-step Commands, Cueing Needed Cueing to Follow Commands: Minimum Treatment Interventions: Self Care/Home Management Plan for Next Visit: Bathing Training, Bed Mobility, Dressing Training, Fall Prevention, Grooming Training Home Environment Patient Lives With: Spouse (and sometimes adult son) Assistance Available: 24-Hour Entry To Home: Stairs Number Of Stairs Into Home: 3 (has stair lift) Number Of Stairs To Bed/Bath: 0 Tub/Shower Type: walk in shower Laundry: spouse does the laundry Equipment Owned: Cane, Grab Bars- Shower, Shower Chair, Walker- Wheeled Prior Functional Level: Within Functional Limits Prior Functional Level Comments: Per patient he is normally independent with self care and IADLs Baseline Cognition: Oriented to self, Oriented to place, Oriented to time, Oriented to situation Occupational Factors Life Roles: Spouse/Significant Other, Parent, Family Member, Friend Identified Strengths: Good Support System, Involvement in Hobbies/Leisure Activities, Positive Coping Strategies, Self-Regulation, Effective Communication Skills, Strong Awareness of Deficit(s), Open to Adaptive Equipment/Strategies, Motivation, Safety Awareness, Health Literacy, Memory/Attention, Follows Multi-Step Commands, Problem-Solving Skills, Access to Healthcare Identified Barriers: Difficulty with ADLs/IADLs Subjective: Pt seen bedside, agreeable to OT CURRENT FUNCTIONAL STATUS: Most recent performance Current Activities of Daily Living Assist Level Additional Information Feeding Independent Grooming Set Up, Additional Information provided patient with the opportunity to complete grooming task while seated in chair, provided setup assist to complete task Bathing Upper Body Set Up Bathing Lower Body Minimal Assistance Dressing Upper Body Set Up Dressing Lower Body Contact Guard Assistance, Additional Information Provided patient with cues for proper sequencing to complete LB dressing task Toileting Contact Guard Assistance Instrumental Activities of Daily Living Assist Level Additional Information Meal/Beverage Prep Cleaning Laundry Medication Management with Strategies Functional Mobility Assist Level Additional Information Rolling Supine to Sit Sit to Supine Scooting Sit to Stand Contact Guard Assistance, Additional Information provided patient with cues for proper hand placement to complete sit to stand from chair Stand to Sit Contact Guard Assistance Bed to Chair Toilet/Commode Shower Functional Mobility Contact Guard Assistance Blank mccabe indicate activity not attempted Range of Motion: WFL Strength: Upper Extremity Comments Right Upper Extremity Strength Comments: 4/5 Left Upper Extremity Strength Comments: 4/5 Activity Tolerance: Sitting Activity, Standing Activity Sitting Activity: LB ADLS Sitting Activity Tolerance (in minutes): 5 Standing Activity: functional mobility Standing Activity Tolerance (in minutes): 2 Learning/Educational Needs: Discharge Plan, Self Care, Safety Goals for Plan of Care: Patient/Caregiver Goals: Participate in meaningful activities Upper Body Bathing with: Independent Upper Body Dressing with: Independent Lower Body Bathing with: Independent Lower Body Dressing with: Independent Toilet Hygiene with: Independent Toilet Transfer with: Independent Tolerate (minutes of functional activity): 20 Functional Activity with: Independent Rehab Potential: Good Patient will be disconti (more content not included)... Normal [facility] THERAPY NT HNO ID: [id number] Author: Mónica Hughes PT Service: Physical Therapy Author Type: Physical Therapist Type: Therapy (PT/OT/Speech/Resp) Filed: 03/07/2023 12:06 PM Note Text: PHYSICAL THERAPY MISSED VISIT SERVICE DATE: 03/07/2023 SERVICE TIME: 1131 to 1131 ROOM: [place] [address] ([facility]) Patient not seen due to Test / Procedure (at HD). SIGNATURE: Mónica Hughes PT PATIENT NAME: Franklin Burton DATE: March 07, 2023 TIME: 12:06 PM Normal [facility] CBC W Auto Differential pane l (Bld)on 03-06-2023 Basophils (Bld) [#/Vol] 0.06 10*3/uL Normal <0.11 [facility] Comment on above: Order Comment: Speci men Type: BLOOD SPECIMEN Ordering Facility: [facility] Address: [address] [place] [address] Performed By: #### 5 7021-8 #### [facility] CLIA [id number] [address] Basophils/100 WBC (Bld) 0.6 % Normal A [facility] Comment on above: Order Comment: Speci men Type: BLOOD SPECIMEN Ordering Facility: [facility] Address: [address] [place] [address] Performed By: #### 5 7021-8 #### [facility] CLIA [id number] [address] Differential cell count method Nom (Bld) Auto Normal [facility] Comment on above: Order Comment: Speci men Type: BLOOD SPECIMEN Ordering Facility: [facility] Address: [address] [place] [address] Performed By: #### 5 7021-8 #### [facility] CLIA [id number] [address] [place] Eosinophils (Bld) [#/Vol] 0.06 10*3/uL Normal <0.46 [facility] Comment on above: Order Comment: Speci men Type: BLOOD SPECIMEN Ordering Facility: [facility] Address: [address] [place] [address] Performed By: #### 5 7021-8 #### [facility] CLIA [id number] [address] Eosinophils/100 WBC (Bld) 0.6 % Normal [facility] Comment on above: Order Comment: Speci men Type: BLOOD SPECIMEN Ordering Facility: [facility] Address: [address] [place] [address] Performed By: #### 5 7021-8 #### [facility] CLIA [id number] [address] [place] Erythrocyte distribution width (RBC) [Ratio] 13.2 % Normal 11.5-15.0 [facility] Comment on above: Order Comment: Speci men Type: BLOOD SPECIMEN Ordering Facility: [facility] Address: [address] [place] [address] Performed By: #### 5 7021-8 #### [facility] CLIA [id number] [address] [place] Hematocrit (Bld) [Volume fraction] 36.3 % Low 39.0-51.0 [facility] Comment on above: Order Comment: Speci men Type: BLOOD SPECIMEN Ordering Facility: [facility] Address: [address] [place] [address] Performed By: #### 5 7021-8 #### [facility] CLIA [id number] [address] [place] Hemoglobin (Bld) [Mass/Vol] 12.2 g/dL Low 13.0-17.0 [facility] Comment on above: Order Comment: Speci men Type: BLOOD SPECIMEN Ordering Facility: [facility] Address: [address] [place] [address] Performed By: #### 5 7021-8 #### [facility] CLIA [id number] [address] [place] Immature granulocytes (Bld) [#/Vol] 0.08 10*3/uL Normal <0.10 [facility] Comment on above: Order Comment: Speci men Type: BLOOD SPECIMEN Ordering Facility: [facility] Address: [address] [place] [address] Performed By: #### 5 7021-8 #### [facility] CLIA [id number] [address] [place] Immature granulocytes/100 WBC (Bld) 0.8 % Normal [facility] Comment on above: Order Comment: Speci men Type: BLOOD SPECIMEN Ordering Facility: [facility] Address: [address] [place] [address] Performed By: #### 5 7021-8 #### [facility] CLIA [id number] [address] OF [facility] Lymphocytes (Bld) [#/Vol] 0.95 10*3/uL Low 1.00-4.00 [facility] Comment on above: Order Comment: Speci men Type: BLOOD SPECIMEN Ordering Facility: [facility] Address: [address] [place] [address] Performed By: #### 5 7021-8 #### [facility] CLIA [id number] [address] Lymphocytes/100 WBC (Bld) 9.6 % Normal [facility] Comment on above: Order Comment: Speci men Type: BLOOD SPECIMEN Ordering Facility: [facility] Address: [address] [place] [address] Performed By: #### 5 7021-8 #### [facility] CLIA [id number] [address] OF [facility] MCH (RBC) [Entitic mass] 31.4 pg Normal 26.0-34.0 [facility] Comment on above: Order Comment: Speci men Type: BLOOD SPECIMEN Ordering Facility: [facility] Address: [address] [place] [address] Performed By: #### 5 7021-8 #### [facility] CLIA [id number] [address] STATES OF [facility] MCHC (RBC) [Mass/Vol] 33.6 g/dL Normal 30.5-36.0 [facility] Comment on above: Order Comment: Speci men Type: BLOOD SPECIMEN Ordering Facility: [facility] Address: [address] [place] [address] Performed By: #### 5 7021-8 #### [facility] CLIA [id number] [address] MCV (RBC) [Entitic vol] 93.3 fL Normal 80.0-100.0 [facility] Comment on above: Order Comment: Speci men Type: BLOOD SPECIMEN Ordering Facility: [facility] Address: [address] [place] [address] Performed By: #### 5 7021-8 #### [facility] CLIA [id number] [address] [place] Monocytes (Bld) [#/Vol] 0.99 10*3/uL High <0.87 [facility] Comment on above: Order Comment: Speci men Type: BLOOD SPECIMEN Ordering Facility: [facility] Address: [address] [place] [address] Performed By: #### 5 7021-8 #### [facility] CLIA [id number] [address] Monocytes/100 WBC (Bld) 10.0 % Normal A [facility] Comment on above: Order Comment: Speci men Type: BLOOD SPECIMEN Ordering Facility: [facility] Address: [address] [place] [address] Performed By: #### 5 7021-8 #### [facility] CLIA [id number] [address] [place] Neutrophils (Bld) [#/Vol] 7.72 10*3/uL High 1.45-7.50 [facility] Comment on above: Order Comment: Speci men Type: BLOOD SPECIMEN Ordering Facility: [facility] Address: [address] [place] [address] Performed By: #### 5 7021-8 #### [facility] CLIA [id number] [address] Neutrophils/100 WBC (Bld) 78.4 % Normal [facility] Comment on above: Order Comment: Speci men Type: BLOOD SPECIMEN Ordering Facility: [facility] Address: [address] [place] [address] Performed By: #### 5 7021-8 #### [facility] CLIA [id number] [address] [place] Nucleated RBC (Bld) [#/Vol] 10*3/uL Normal <0.01 [facility] Comment on above: Order Comment: Speci men Type: BLOOD SPECIMEN Ordering Facility: [facility] Address: [address] [place] [address] Performed By: #### 5 7021-8 #### [facility] CLIA [id number] [address] [place] Nucleated RBC/100 WBC (Bld) [Ratio] 0.0 /100 WBC Normal [facility] Comment on above: Order Comment: Speci men Type: BLOOD SPECIMEN Ordering Facility: [facility] Address: [address] [place] [address] Performed By: #### 5 7021-8 #### [facility] CLIA [id number] [address] [place] Platelet mean volume (Bld) [Entitic vol] 9.3 fL Normal 9.0-12.7 [facility] Comment on above: Order Comment: Speci men Type: BLOOD SPECIMEN Ordering Facility: [facility] Address: [address] [place] [address] Performed By: #### 5 7021-8 #### [facility] CLIA [id number] [address] [place] Platelets (Bld) [#/Vol] 203 10*3/uL Normal 150-400 [facility] Comment on above: Order Comment: Speci men Type: BLOOD SPECIMEN Ordering Facility: [facility] Address: [address] [place] [address] Performed By: #### 5 7021-8 #### [facility] CLIA [id number] [address] [place] RBC (Bld) [#/Vol] 3.89 10*6/uL Low 4.20-6.00 [facility] Comment on above: Order Comment: Speci men Type: BLOOD SPECIMEN Ordering Facility: [facility] Address: [address] [place] [address] Performed By: #### 5 7021-8 #### [facility] CLIA [id number] [address] [place] WBC (Bld) [#/Vol] 9.86 10*3/uL Normal 3.70-11.00 [facility] Comment on above: Order Comment: Speci men Type: BLOOD SPECIMEN Ordering Facility: [facility] Address: [place] [address] Performed By: #### 5 7021-8 #### [facility] CLIA [id number] [address] [place] [id number] [place] CONSULT PROGon 03-06-2023 CONSULT PROG HNO ID: [id number] Author: January Hunter MD Service: Infectious Disease Author Type: Physician Type: Consult Progress Note Filed: 03/06/2023 5:57 PM Note Text: PROGRESS NOTE INFECTIOUS DISEASE Attending saw patient March 06 at 1600 independently BRIEF SUMMARY: This is a 77 YO Quaker male who was seen by ID consultation for PD catheter infection. Patient is a 77 YO male with past medical history of ESRD due to GPA, HTN, T2DM who was transferred from [facility] for peritonits in the setting of peritoneal dialysis associated infection. House medicine requested consult based on [facility] medical records revealing PD catheter aspirate was positive for stenotrophomonas maltophilia. PD catheter was removed. ASSESSMENT: Patient has peritoneal dialysis related infection with stenotrophomonas maltophilia. Blood cultures show no growth for 2 days. This morning he appears more fatigued, diaphoretic. His abdomen is non distended, soft, and displays no signs of peritonitis. PD catheter insertion site is dry without warmth, drainage, erythema. Patient is currently afebrile. 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 Recommend treatment for 2 to 3 weeks levofloxacin and eravacycline -Blood cultures no growth for 4 days -Home will be PO of levofloxacin and minocycline #Peritonits from PD catheter -Patient's catheter will no flush or aspirate fluid, can try to salvage or consider removal, would recommend removal if nephrology agrees based on catheter's current non patent status and patient's ability to do hemodialysis via AV fistula #Fever and Chills from infection -CBC shows WBC continuing to trend down -Continue monitoring patient's clinical status, vitals, and CBC #ESRD in the setting of GPA -Patient placed back on hemodialysis -may affect dosages of abx, levofloxacin is cleared 80% by kidney, eravacycline does not require renal dose adjustments RECOMMENDATIONS: - Continue levofloxacin, eravacycline IV and switch to oral equivalents at discharge -PD catheter removed on 03/05/2023, monitor anaerobic culture results in case antibiotic regimen change is needed Agree with above assessment and plan but see attending independent assessment and plan below Subjective SUBJECTIVE: Interval Events: 03/06 today patient is feeling better, but overall still feels "lousy". He still has some abdominal pain, but says there is no increase in pain with movement. He describes the pain as constant and achy. He endorses nausea and feels like he needs to vomit, but there is nothing coming up". He endorses a minor tension headache of 3/10, gum soreness which makes it difficult to eat, and pain on defecation w/o any blood in stool. He denies fever chills, diarrhea, chills, rigors, CVA tenderness, vertebral tenderness, neck stiffness. Independent attending history: Agree with above states he is feeling a little better but still has the peritoneal pain no worse since the line came out. Currently no complaints of headache, fever, chills, nausea or vomiting, antibiotic issues. Not sure yet when his dialysis schedule cycles will be Active Antimicrobials (From admission, onward) Start Stop 03/04/23 0900 levoFLOXacin 500 mg tab(s) (LEVAQUIN) 500 mg, ORAL, EVERY 48 HOURS -- 03/03/23 1500 eravacycline 100 mg in NaCl 0.9% 250 mL (XERAVA) 1 mg/kg/dose, INTRAVENOUS, EVERY 12 HOURS -- 03/01/23 1300 nystatin 5 mL oral liquid (MYCOSTATIN) 5 mL, ORAL, 4 TIMES DAILY -- Immunosuppressant: Patient does not take any immunosuppressant medication Objective Medications: Current Facility-Administered Medications Medication Dose Route Frequency NaCl 0.9% iv flush bag 20 mL INTRAVENOUS PRN metoprolol tartrate (short acting) 12.5 mg tab(s) (LOPRESSOR) 12.5 mg ORAL BID heparin 5,000 Units injection 5,000 Units SUBCUTANEOUS q 12 H senna 17.2 mg tab(s) (SENOKOT) 17.2 mg ORAL DAILY polyethylene glycol 3350 17 g packet 17 g ORAL DAILY nystatin 5 mL oral liquid (MYCOSTATIN) 5 mL ORAL QID pregabalin 25 mg cap(s) (LYRICA) 25 mg ORAL BID oxyCODONE IR 5-10 mg tab(s) (ROXICODONE) 5-10 mg ORAL q 6 H PRN levoFLOXacin 500 mg tab(s) (LEVAQUIN) 500 mg ORAL q 48 HR eravacycline 100 mg in NaCl 0.9% 250 mL (XERAVA) 1 mg/kg/dose INTRAVENOUS q 12 H metoclopramide HCl 5 mg (REGLAN) 5 mg ORAL q 8 H PRN oxymetazoline 0.05 % 2 [place] (GENASAL) 2 [place] EACH NOSTRIL BID PRN calcium carbonate 1,000 mg chewable tab(s) (TUMS) 1,000 mg ORAL TID PRN OBJECTIVE: Physical Exam: BP 143/77 Pulse 93 Temp (Src) 98.6 (Oral) Resp 18 Ht 5' 8" (1.73m) Wt 212 lb 11.2 oz (96.5kg) SpO2 95% BMI 32.35 kg/(m2). O2 Therapy: Room Air Lines, Drains, and Airways Line Duration Peripheral 03/04/232136 [facility] (more content not included)... Normal [facility] Renal function 2000 panelon 03-06-2023 Albumin [Mass/Vol] 3.4 g/dL Low 3.9-4.9 [facility] Comment on above: Order Comment: Speci men Type: BLOOD SPECIMEN Ordering Facility: [facility] Address: [address] [place] [address] Performed By: #### 5 7021-8 #### [facility] CLIA [id number] [address] [place] [address] STATES OF [facility] Anion gap [Moles/Vol] 9 mmol/L Normal 9-18 [facility] Comment on above: Order Comment: Speci men Type: BLOOD SPECIMEN Ordering Facility: [facility] Address: [address] [place] [address] Performed By: #### 5 7021-8 #### [facility] CLIA [id number] [address] STATES OF [facility] Calcium [Mass/Vol] 8.8 mg/dL Normal 8.5-10.2 [facility] Comment on above: Order Comment: Speci men Type: BLOOD SPECIMEN Ordering Facility: [facility] Address: [address] [place] [address] Performed By: #### 5 7021-8 #### [facility] CLIA [id number] [address] Chloride [Moles/Vol] 99 mmol/L Normal 97-105 [facility] Comment on above: Order Comment: Speci men Type: BLOOD SPECIMEN Ordering Facility: [facility] Address: [address] [place] [address] Performed By: #### 5 7021-8 #### [facility] CLIA [id number] [address] CO2 [Moles/Vol] 25 mmol/L Normal 22-30 [facility] Comment on above: Order Comment: Speci men Type: BLOOD SPECIMEN Ordering Facility: [facility] Address: [address] [place] [address] Performed By: #### 5 7021-8 #### [facility] CLIA [id number] [address] OF [facility] Creatinine [Mass/Vol] 2.39 mg/dL High 0.73-1.22 [facility] Comment on above: Order Comment: Speci men Type: BLOOD SPECIMEN Ordering Facility: [facility] Address: [address] [place] [address] Performed By: #### 5 7021-8 #### [facility] CLIA [id number] [address] Creatinine and Glomerular filtration rate.predicted panel (S/P/Bld) 27 mL/min/1.73m??? Low >=60 [facility] Comment on above: Order Comment: Speci men Type: BLOOD SPECIMEN Ordering Facility: [facility] Address: [address] [place] [address] Result Comment: Zoë mated Glomerular Filtration Rate (eGFR) is calculated using the 2020 CKD-EPI creatinine equation. This equation utilizes serum creatinine, sex, and age as parameters. The creatinine assay has traceable calibration to isotope dilution-mass spectrometry. Refer to KDIGO guidelines for clinical interpretation. In patients with unstable renal function, e.g. those with acute kidney injury, the eGFR may not accurately reflect actual GFR. Performed By: #### 5 7021-8 #### [facility] CLIA [id number] [address] [place] [address] [place] Glucose [Mass/Vol] 118 mg/dL High 74-99 [facility] Comment on above: Order Comment: Camilo redman Type: BLOOD SPECIMEN Ordering Facility: [facility] Address: [address] [place] [address] Result Comment: The [place] [employer] (ADA) provides guidance for cutoff values for fasting glucose and random glucose. The ADA defines fasting as no caloric intake for at least 8 hours. Fasting plasma glucose results between 100 to 125 mg/dL indicate increased risk for diabetes (prediabetes). Fasting plasma glucose results greater than or equal to 126 mg/dL meet the criteria for diagnosis of diabetes. In the absence of unequivocal hyperglycemia, results should be confirmed by repeat testing. In a patient with classic symptoms of hyperglycemia or hyperglycemic crisis, random plasma glucose results greater than or equal to 200 mg/dL meet the criteria for diagnosis of diabetes. Reference: Standards of Medical Care in Diabetes 2016, [place] [employer]. Diabetes Care. 2016.39(Suppl 1). Performed By: #### 5 7021-8 #### [facility] CLIA [id number] [address] [place] [address] [place] Phosphate [Mass/Vol] 2.5 mg/dL Low 2.7-4.8 [facility] Comment on above: Order Comment: Camilo redman Type: BLOOD SPECIMEN Ordering Facility: [facility] Address: [address] [place] [address] Performed By: #### 5 7021-8 #### [facility] CLIA [id number] [address] [place] [address] [place] Potassium [Moles/Vol] 4.3 mmol/L Normal 3.7-5.1 [facility] Comment on above: Order Comment: Camilo redman Type: BLOOD SPECIMEN Ordering Facility: [facility] Address: [address] [place] [address] Performed By: #### 5 7021-8 #### [facility] CLIA [id number] [address] Sodium [Moles/Vol] 133 mmol/L Low 136-144 [facility] Comment on above: Order Comment: Speci men Type: BLOOD SPECIMEN Ordering Facility: [facility] Address: [address] [place] [address] Performed By: #### 5 7021-8 #### [facility] CLIA [id number] [address] Urea nitrogen [Mass/Vol] 29 mg/dL High 9-24 [facility] Comment on above: Order Comment: Speci men Type: BLOOD SPECIMEN Ordering Facility: [facility] Address: [address] [place] [address] Performed By: #### 5 7021-8 #### [facility] CLIA [id number] [address] THERAPY NTon 03-06-2023 THERAPY NT HNO ID: [id number] Author: Anay Burnett OT/Jin Service: Occupational Therapy Author Type: Occupational Therapist Type: Therapy (PT/OT/Speech/Resp) Filed: 03/06/2023 3:53 PM Note Text: OCCUPATIONAL THERAPY MISSED VISIT SERVICE DATE: 03/06/2023 SERVICE TIME: 1548 to 1550 ROOM: [place] [address] Patient not seen due to declined Treatment .Patient not feeling well, c/o increased abdominal pain and not feeling up to any activity. RN confirms Having a rough day. Maybe tomorrow." Patient had been getting up to bathroom with limited assist of one, but has had increased weakness and not up as much.Will follow up as patient status and schedule permit. SIGNATURE: HERMELINDA [place] PATIENT NAME: Franklin Burton DATE: March 06, 2023 TIME: 3:52 PM Normal [facility] ANES PRE-OPon 03-05-2023 ANES PRE-OP HNO ID: [id number] Author: Junior Garcia MD Service: Anesthesiology Author Type: Anesthesiologist Type: Anesthesia Preprocedure Evaluation Filed: 03/05/2023 8:10 AM Note Text: ANESTHESIOLOGY DAY OF SURGERY NOTE : 1945 Procedure Information Date/Time: 03/05/23829 Procedure: REMOVAL OF PERMANENT INTRAPERITONEAL CATHETER (Abdomen) Location: [place] OR 17 / [place] [facility] Surgeons: Louie Lee MD Estimated body mass index is 32.34 kg/m? as calculated from the following: Height as of this encounter: 172.7 cm (5' 8"). Weight as of this encounter: 96.5 kg (212 lb 11.2 oz). 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 Dialyzed MWF via LUE AVF. Last dialysis 03/03. K 4.9 this AM Peritonitis 2/2 PD catheter infection. Afebrile, HDS on RA. WBC WNL Hx G2a view with DL. I - PHYSICAL EVALUATION AIRWAY Patient intubated: No. Tracheostomy tube not present Mallampati: III. TM distance: >3 FB. Neck ROM: full ROM without neurological symptoms. Mouth opening: adequate. Short neck: no. Thick neck: no Sarkar present: yes DENTAL Dental findings: edentulous. Additional exam findings: no II - ANESTHESIA PLAN ASA Score: 3 Anesthetic Plan: general Airway type: ETT The patient is not a current smoker. NPO Status: adequate Beta Richy Monitoring Plan Monitoring plan: standard ASA. Post Procedure Analgesic Plan Postoperative analgesic plan: parenteral or oral opioids. Informed Consent Anesthetic risks, benefits, alternatives, personnel and consent discussed: yes. Patient / Responsible [employer] agrees to proceed: yes Patient / Surrogate agrees to blood products: Yes Significant changes in the patient condition since the History and Physical, not otherwise documented in primary service progress note: no. Potential Anesthesia issues that may suggest increased risk of complications or contraindication to planned procedure: none. Vitals Value Taken Time BP 130/82 03/05/23531 Pulse 87 03/05/23531 Resp 18 03/05/23531 Temp 37.1 ?C (98.8 ?F) 03/05/23531 SpO2 97 % 03/05/23531 Facility-Administered Medications as of 03/05/2023 Medication Dose Route Frequency - metoclopramide HCl 5 mg (REGLAN) 5 mg ORAL q 8 H PRN - oxymetazoline 0.05 % 2 [place] (GENASAL) 2 [place] EACH NOSTRIL BID PRN - calcium carbonate 1,000 mg chewable tab(s) (TUMS) 1,000 mg ORAL TID PRN - oxyCODONE IR 5-10 mg tab(s) (ROXICODONE) 5-10 mg ORAL q 6 H PRN - levoFLOXacin 500 mg tab(s) (LEVAQUIN) 500 mg ORAL q 48 HR - eravacycline 100 mg in NaCl 0.9% 250 mL (XERAVA) 1 mg/kg/dose INTRAVENOUS q 12 H - metoprolol tartrate (short acting) 12.5 mg tab(s) (LOPRESSOR) 12.5 mg ORAL BID - heparin 5,000 Units injection 5,000 Units SUBCUTANEOUS q 12 H - senna 17.2 mg tab(s) (SENOKOT) 17.2 mg ORAL DAILY - polyethylene glycol 3350 17 g packet 17 g ORAL DAILY - nystatin 5 mL oral liquid (MYCOSTATIN) 5 mL ORAL QID - [] peritoneal dialysis dextrose 1.5% low Ca 500 mL solution (DIANEAL) 500 mL INTRAPERITONEAL ONCE - [COMPLETED] vancomycin 1.5 g in D5W 250 mL (VANCOCIN) 1.5 g INTRAVENOUS ONCE - pregabalin 25 mg cap(s) (LYRICA) 25 mg ORAL BID - [COMPLETED] acetaminophen 650 mg tab(s) (TYLENOL) 650 mg ORAL ONCE - [COMPLETED] acetaminophen 325 mg tab(s) (TYLENOL) 325 mg ORAL ONCE - NaCl 0.9% iv flush bag 20 mL INTRAVENOUS PRN Outpatient Medications as of 03/05/2023 Medication Sig - gabapentin (NEURONTIN) 100 mg capsule TAKE 2 CAPSULES BY MOUTH ONCE DAILY AT BEDTIME FOR 90 DAYS - oxyCODONE-acetaminoph en (PERCOCET) 5-325 mg tablet TAKE 1 TABLET BY MOUTH EVERY 8 HOURS NEEDED FOR PAIN FOR 30 DAYS - metoprolol tartrate, short acting, 25 mg tablet Take 0.5 tablets by mouth twice daily. - omeprazole (PRILOSEC) 20 mg capsule Take 1 capsule by mouth daily before breakfast. 1/2 hr before meal. (Patient taking differently: Take 40 mg by mouth daily before breakfast. 1/2 hr before meal.) I have interviewed and examined the patient. I have reviewed the medical record and/or the pre-anesthesia evaluation, pertinent labs, and test results. This contains updated information obtained within 48 hours of Surgery/Procedure. SIGNATURE: Junior Garcia MD PATIENT NAME: Franklin Burton DATE: March 05, 2023 TIME: 7:18 AM CSN: [id number] [facility] BRIEF OP NOTon 03-05-2023 BRIEF OP NOT HNO ID: [id number] Author: Yair Hassan DO Service: General Surgery Author Type: Resident Type: Brief Op Note Filed: 03/05/2023 9:47 AM Note Text: Attestation signed by Louie Lee MD at 04/01/2023 12:37 PM Attestation: I was present for the critical and jorge portions of the surgery and I was immediately available to provide assistance. Louie Lee MD GENERAL SURGERY BRIEF OP NOTE LOG ID: [id number] Surgery/Procedure Date: 03/05/2023 Incision/Procedure Start Time: 9:12 AM Incision Close/Procedure End Time: 9:40 AM Surgeon(s) and Business Sales Consultant(s): Surgeon(s) and Role: * Louie Lee MD - Primary * Yair Hassan DO - Resident - Assisting * Irving Osorio DO - Resident - Assisting No Additional Staff Procedure(s): REMOVAL OF PERMANENT INTRAPERITONEAL DIALYSIS CATHETER Anesthesia: General Findings: Well incorporated PD catheter Please see operative report for full details Drains: None IV Fluids: Per anesthesia report Estimated Blood Loss: 5 cc Estimated Urine Output: 0cc, Per anesthesia report Specimens: ID Type Source Tests Collected by Time Destination 1 : PERITONEAL DIALYSIS CATHETER TIP Device NONVASCULAR TIP ABSCESS AND WOUND CULTURE WITH GRAM STAIN, ANAEROBE CULTURE FOR OR Louie Lee MD 03/05/2023 9:23 AM A : PERITONEAL DIALYSIS CATHETER Device DEVICE SURGICAL PATHOLOGY Louie Lee MD 03/05/2023 9:25 AM Wound Classification: Class 4, operative dirty wound with acute bacterial inflammation Complications: None Pre-Op/Pre-Procedure Diagnosis: Pre-Op Diagnosis Codes: * Peritonitis (HCC) [K65.9] Post-Op/Post-Procedur e Diagnosis: * Peritonitis (HCC) [K65.9] * PD catheter infection SIGNATURE: Yair Hassan DO PATIENT NAME: Franklin Burton DATE: March 05, 2023 TIME: 9:46 AM PAGER/CONTACT #: [phone] From 5pm to 6 am and on weekends, please page general surgery on-call [phone] Normal [facility] Bacteria Spec Anaerobe Culto n 03-05-2023 Bacteria identified Anaer cx Nom (Unsp spec) Negative Normal [facility] Comment on above: Performed By: #### 6 35-3, 6462-6 ####[facility] [id number] [place] [address] [place] Bacteria Wnd Culton 03-05-20 23 Bacteria identified Cx Nom (Wound) ORGANISM ID: 1 Few Stenotrophomonas maltophilia This test was developed and its performance characteristics determined by [facility]'s [facility]io [facility]). It has not been cleared or approved by the FDA. [facility] is regulated under CLIA as q ualified to perform high-complexity testing. This test is used for clinical purposes. It should not be regarded as investigational or for research. GRAM STAIN: No organisms seen Many Polymorphonuclear leukocytes ORGANISM ID: 1 (STENOTROPHOMONAS MALTOPHILIA) ------ ANTIBIOTIC INTERPRETATION OLAYINKA STATUS REFERENCE RANGE ------ Trimeth sulfameth S 1 F Stenotrophomonas maltophilia is intrinsically resistant to aminoglycosides and most B-lactam agents including carbapenem. Levofloxacin S 1 F Susceptible <=2 , Intermediate >2 , Resistant >4 Abnormal [facility] Comment on above: Performed By: #### 6 35-3, 6462-6 ####[facility] [id number] [place] [id number] [place] NURSING PROGon 03-05-2023 NURSING PROG HNO ID: [id number] Author: Marine Perdomo RN Service: ? Author Type: Registered Nurse Type: Nursing Progress Note Filed: 03/05/2023 4:49 PM Note Text: Hemodialysis tx completed Negra well Stable Fluid Balance -300 ml off Last bp 131/76 p 93 rr 18 temp 36.5 See flow sheet for details Report given Normal [facility] OPERATIVE NOon 03-05-2023 OPERATIVE NO HNO ID: [id number] Author: Yair Hassan DO Service: General Surgery Author Type: Resident Type: Operative Report Filed: 03/05/2023 9:54 AM Note Text: Attestation signed by Louie Lee MD at 03/13/2023 3:43 PM Attestation: I was present for the critical and jorge portions of the surgery and I was immediately available to provide assistance. Louie Lee MD OPERATIVE REPORT LOG ID: [id number] Surgery/Procedure Date: 03/05/2023 Incision/Procedure Start Time: 9:12 AM Incision Close/Procedure End Time: 9:40 AM Surgeon(s)/Procedural ist(s) and Business Sales Consultant(s): Surgeon(s) and Role: * Louie Lee MD - Primary * Yair Hassan DO - Resident - Assisting * Irving Osorio DO - Resident - Assisting No Additional Staff Procedure(s): REMOVAL OF PERMANENT INTRAPERITONEAL DIALYSIS CATHETER Anesthesia: General Findings: Well incorporated PD catheter Please see operative report for full details Drains: None IV Fluids: Per anesthesia report Estimated Blood Loss: 5 cc Estimated Urine Output: 0cc, Per anesthesia report Specimens: ID Type Source Tests Collected by Time Destination 1 : PERITONEAL DIALYSIS CATHETER TIP Device NONVASCULAR TIP ABSCESS AND WOUND CULTURE WITH GRAM STAIN, ANAEROBE CULTURE FOR OR Louie Lee MD 03/05/2023 9:23 AM A : PERITONEAL DIALYSIS CATHETER Device DEVICE SURGICAL PATHOLOGY Louie Lee MD 03/05/2023 9:25 AM Antibiotics: Current Anti-Infective Meds (From admission, onward) Start Stop Route Frequency Ordered 03/02/23 0730 cefepime 1 g in D5W 100 mL Vial-Bag (MAXIPIME) Status: Discontinued 03/03/23 1412 INTRAVENOUS Every 12 hours 03/02/23 0711 03/01/23 0900 cefTRIAXone iv piggyback 1 g in dextrose (iso-osmotic) 50 mL (ROCEPHIN) Status: Discontinued 03/02/23 0711 INTRAVENOUS EVERY 24 HOURS 02/28/23 2336 03/03/23 1500 [Held on Transfer] eravacycline 100 mg in NaCl 0.9% 250 mL (XERAVA) (Held on Transfer since Fri03/05/2023 at 0718.Hold Reason: Hold Unreviewed Transfer Orders) -- INTRAVENOUS EVERY 12 HOURS 03/03/23 1412 03/04/23 0900 [Held on Transfer] levoFLOXacin 500 mg tab(s) (LEVAQUIN) (Held on Transfer since Fri03/05/2023 at 0718.Hold Reason: Hold Unreviewed Transfer Orders) -- ORAL EVERY 48 HOURS 03/03/23 1412 03/02/23 1400 levoFLOXacin 750 mg tab(s) (LEVAQUIN) Status: Discontinued 03/02/23 1447 ORAL EVERY 48 HOURS 03/02/23 1400 03/03/23 0900 levoFLOXacin iv piggyback 250 mg in D5W 50 mL (LEVAQUIN) Status: Discontinued 03/02/23 1400 INTRAVENOUS DAILY 03/02/23 1230 03/02/23 1230 levoFLOXacin iv piggyback 750 mg in D5W 150 mL (LEVAQUIN) Status: Discontinued 03/02/23 1400 INTRAVENOUS ONCE 03/02/23 1230 03/01/23 1300 [Held on Transfer] nystatin 5 mL oral liquid (MYCOSTATIN) (Held on Transfer since Fri03/05/2023 at 0718.Hold Reason: Hold Unreviewed Transfer Orders) -- ORAL 4 TIMES DAILY 03/01/23 1104 03/03/23 1300 sulfamethoxazole-trim ethoprim 800-160 mg 0.5 tablet (BACTRIM DS) Status: Discontinued 03/03/23 1412 ORAL EVERY FRI-FRI-Fri03/03/23 1239 03/01/23 1130 vancomycin 1.5 g in D5W 250 mL (VANCOCIN) 03/01/23 1334 INTRAVENOUS ONCE 03/01/23 1121 03/01/23 0000 vancomycin iv piggyback 1 g in D5W 200 mL (VANCOCIN) Status: Discontinued 02/28/23 2347 INTRAVENOUS EVERY 12 HOURS 02/28/236 Wound Classification: Class 4, operative dirty wound with acute bacterial inflammation Complications: None Pre-Op/Pre-Procedure Diagnosis: Pre-Op Diagnosis Codes: * Peritonitis (HCC) [K65.9] Post-Op/Post-Procedur e Diagnosis: * Peritonitis (HCC) [K65.9] * PD catheter infection Indication for Procedure: Franklin Burton is a 77 year old who presented with abdominal pain he had fluid cultures of his peritoneal cavity that were growing stenotrophomonas maltophilia, infectious disease was consulted and recommended PD cath removal. History, exam, laboratory evaluation and imaging were notable for peritonitis and peritoneal dialysis catheter infection. 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 The risks discussed include but are not limited to potential complications of anesthesia, infection, bleeding, nerve injury, postoperative pain, need for a blood transfusion, infection, operative site hernia, injury to adjacent structures, need for additional operation or procedure and other factors. All questions were answered and consent was obtained from the patient. Description of Procedure: After a pre-operative huddle the patient was taken to the operating room. After induction of general anesthesia, administration/confir mation of marlyn-operative antibiotics and VTE prophylaxis, the patient was positioned, prepped and draped in us (more content not included)... Normal [facility] PT panel Coag (PPP)on 2022 INR Coag (PPP) [Relative time] 1.2 {INR} Normal 0.9-1.3 [facility] Comment on above: Order Comment: Speci men Type: BLOOD SPECIMEN Ordering Facility: [facility] Address: [address] [place] [address] Result Comment: Lidia min K Antagonist (VKA) Therapeutic Range: INR 2 to 3 (Target INR of 2.5) Note: For patients treated with VKA drugs, such as warfarin, the [employer] 2012 Guideline recommends a therapeutic INR range of 2 to 3 (target INR of 2.5). This recommendation includes high-risk patients with antiphospholipid syndrome with previous arterial or venous thromboembolism, current-generation mechanical or bioprosthetic aortic heart valve replacement. Note: Patients with mechanical aortic valve replacement and additional risk factors for thromboembolic events (atrial fibrillation, previous thromboembolism, LV dysfunction, hypercoagulable conditions) or an older generation mechanical AVR (i.e., ball in-Cage) or any mechanical MVR should have a INR therapeutic range of 2.5 to 3.5 (target INR of 3). Manoj MARTINEZ, et al. Chest 2012, 141:7S-47S Nidia WEST et al. [facility] 2017, 70: 252-289 Performed By: #### 5 7021-8 #### [facility] CLIA [id number] [address] OF [facility] PT Coag (PPP) [Time] 12.2 s Normal 9.7-13.0 [facility] Comment on above: Order Comment: Specloretta redman Type: BLOOD SPECIMEN Ordering Facility: [facility] Address: [address] [place] [address] Performed By: #### 5 7021-8 #### [facility] CLIA [id number] [address] [place] Renal function 2000 panelon 03-05-2023 Albumin [Mass/Vol] 3.4 g/dL Low 3.9-4.9 [facility] Comment on above: Order Comment: Camilo redman Type: BLOOD SPECIMEN Ordering Facility: [facility] Address: [address] [place] [address] Performed By: #### 5 7021-8 #### [facility] CLIA [id number] [address] Anion gap [Moles/Vol] 8 mmol/L Low - [facility] Comment on above: Order Comment: Speci men Type: BLOOD SPECIMEN Ordering Facility: [facility] Address: [address] [place] [address] Performed By: #### 5 7021-8 #### [facility] CLIA [id number] [address] Calcium [Mass/Vol] 9.3 mg/dL Normal 8.5-10.2 [facility] Comment on above: Order Comment: Mykei men Type: BLOOD SPECIMEN Ordering Facility: [facility] Address: [address] [place] [address] Performed By: #### 5 7021-8 #### [facility] CLIA [id number] [address] [place] Chloride [Moles/Vol] 101 mmol/L Normal 97-105 [facility] Comment on above: Order Comment: Speci feroz Type: BLOOD SPECIMEN Ordering Facility: [facility] Address: [address] [place] [address] Performed By: #### 5 7021-8 #### [facility] CLIA [id number] [address] OF [facility] CO2 [Moles/Vol] 23 mmol/L Normal 22-30 [facility] Comment on above: Order Comment: Camilo redman Type: BLOOD SPECIMEN Ordering Facility: [facility] Address: [address] [place] [address] Performed By: #### 5 7021-8 #### [facility] CLIA [id number] [address] STATES OF [facility] Creatinine [Mass/Vol] 2.55 mg/dL High 0.73-1.22 [facility] Comment on above: Order Comment: Speci feroz Type: BLOOD SPECIMEN Ordering Facility: [facility] Address: [address] [place] [address] Performed By: #### 5 7021-8 #### [facility] CLIA [id number] [address] Creatinine and Glomerular filtration rate.predicted panel (S/P/Bld) 25 mL/min/1.73m??? Low >=60 [facility] Comment on above: Order Comment: Camilo redman Type: BLOOD SPECIMEN Ordering Facility: [facility] Address: [address] [place] [address] Result Comment: Zoë mated Glomerular Filtration Rate (eGFR) is calculated using the 2020 CKD-EPI creatinine equation. This equation utilizes serum creatinine, sex, and age as parameters. The creatinine assay has traceable calibration to isotope dilution-mass spectrometry. Refer to KDIGO guidelines for clinical interpretation. In patients with unstable renal function, e.g. those with acute kidney injury, the eGFR may not accurately reflect actual GFR. Performed By: #### 5 7021-8 #### [facility] CLIA [id number] [address] [place] [address] [place] Glucose [Mass/Vol] 102 mg/dL High 74-99 [facility] Comment on above: Order Comment: Camilo redman Type: BLOOD SPECIMEN Ordering Facility: [facility] Address: [address] [place] [address] Result Comment: The [place] [employer] (ADA) provides guidance for cutoff values for fasting glucose and random glucose. The ADA defines fasting as no caloric intake for at least 8 hours. Fasting plasma glucose results between 100 to 125 mg/dL indicate increased risk for diabetes (prediabetes). Fasting plasma glucose results greater than or equal to 126 mg/dL meet the criteria for diagnosis of diabetes. In the absence of unequivocal hyperglycemia, results should be confirmed by repeat testing. In a patient with classic symptoms of hyperglycemia or hyperglycemic crisis, random plasma glucose results greater than or equal to 200 mg/dL meet the criteria for diagnosis of diabetes. Reference: Standards of Medical Care in Diabetes 2016, [place] [employer]. Diabetes Care. 2016.39(Suppl 1). Performed By: #### 5 7021-8 #### [facility] CLIA [id number] 1 [place] [address] [place] Phosphate [Mass/Vol] 2.9 mg/dL Normal 2.7-4.8 [facility] Comment on above: Order Comment: Camilo redman Type: BLOOD SPECIMEN Ordering Facility: [facility] Address: [address] [place] [address] Performed By: #### 5 7021-8 #### [facility] CLIA [id number] 1 [place] [address] [place] Potassium [Moles/Vol] 4.9 mmol/L Normal 3.7-5.1 [facility] Comment on above: Order Comment: Camilo redman Type: BLOOD SPECIMEN Ordering Facility: [facility] Address: [address] [place] [address] Performed By: #### 5 7021-8 #### [facility] CLIA [id number] [address] Sodium [Moles/Vol] 132 mmol/L Low 136-144 [facility] Comment on above: Order Comment: Speci men Type: BLOOD SPECIMEN Ordering Facility: [facility] Address: [address] [place] [address] Performed By: #### 5 7021-8 #### [facility] CLIA [id number] [address] Urea nitrogen [Mass/Vol] 33 mg/dL High 9-24 [facility] Comment on above: Order Comment: Speci men Type: BLOOD SPECIMEN Ordering Facility: [facility] Address: [address] [place] [address] Performed By: #### 5 7021-8 #### [facility] CLIA [id number] [address] SURGICAL PATHOLOGYon CASE REPORT Normal [facility] Comment on above: Order Comment: Speci men Type: DEVICE SPECIMEN Ordering Facility: [facility] Address: [address] [place] [address] Result Comment: Surg ica Pathology Report Case: [id number] Authorizing Provider: Louie Lee MD Collected: 03/05/2023 09:25 AM Ordering Location: [facility] Received: 03/05/2023 01:22 PM Pathologist: Jesus Newton MD Specimen: DEVICE, PERITONEAL DIALYSIS CATHETER Performed By: #### S #### [facility] CLIA [id number] [address] CLINICAL HISTORY Normal [facility] Comment on above: Order Comment: Speci men Type: DEVICE SPECIMEN Ordering Facility: [facility] Address: [address] [place] [address] Result Comment: Pre- op diagnosis: Peritonitis (HCC) [K65.9] Performed By: #### S #### [facility] CLIA [id number] [address] [place] FINAL DIAGNOSIS Normal [facility] Comment on above: Order Comment: Speci men Type: DEVICE SPECIMEN Ordering Facility: [facility] Address: [address] [place] [address] Result Comment: A. P eritoneal dialysis catheter, removal: - Unremarkable medical receptionist. Gross diagnosis only Performed By: #### S #### [facility] CLIA [id number] [address] FINAL PERFORMING LAB Normal [facility] Comment on above: Order Comment: Speci men Type: DEVICE SPECIMEN Ordering Facility: [facility] Address: [address] [place] [address] Result Comment: Diag nostic interpretation performed at [facility], [address] [place] [address] CLIA# [id number] Gas Or Water Meter Installer: Jesus Newton M.D. Performed By: #### S #### [facility] CLIA [id number] [address] [place] [address] GROSS DESCRIPTION A. DEVICE Normal [facility] Comment on above: Order Comment: Speci men Type: DEVICE SPECIMEN Ordering Facility: [facility] Address: [address] [place] [address] Result Comment: A. R eceived fresh labeled "peritoneal dialysis catheter" is a segment of tubing measuring 33 cm in length and 0.5 cm in greatest width. No sections are submitted. The specimen is for gross examination only. Gross examination performed at [facility], [address] [place] [address] KVB March 05, 2023 2:16 PM Performed By: #### S #### [facility] CLIA [id number] [address] [place] [address] XR CHEST 1V FRONTALon 2022 XR CHEST 1V FRONTAL * * *Final Report* * * DATE OF EXAM: Mar 05 2023 12:41PM [id number] [id number] - XR CHEST 1V FRONTAL / PROCEDURE REASON: Pre-op * * * * Physician Interpretation * * * * EXAMINATION: CHEST RADIOGRAPH (SINGLE VIEW AP OR PA) CLINICAL HISTORY: Pre-op MQ: XC1_5 Comparison: No significant additional findings. RESULT: Lines, tubes, and devices: None. Lungs and pleura: Lung volumes with probable atelectasis at the lung bases. Lungs are otherwise clear. Cardiomediastinal silhouette: Normal cardiomediastinal silhouette. Other: No significant additional findings. IMPRESSION: Small lung volumes with probable subsegmental atelectasis at the lung bases. Mission Commander: PSCB Transcribe Date/Time: Mar 05 2023 1:35P Dictated by : DANIEL RAMIREZ MD This examination was interpreted and the report reviewed and electronically signed by: DANIEL RAMIREZ MD on Mar 05 2023 1:36PM EST [id number] Normal [facility] CONSULTon 03-04-2023 CONSULT HNO ID: [id number] Author: Leanne Sanchez DO Service: General Surgery Author Type: Resident Type: Consults Filed: 03/04/2023 10:38 AM Note Text: Attestation signed by Louie Lee MD at 04/01/2023 12:38 PM I personally saw and examined the patient on 03/04/23. I reviewed the resident's note. I agree with the resident's assessment and plan unless otherwise noted. Louie Lee MD CONSULT: [facility] SERVICE DATE: 03/04/2023 SERVICE TIME: 10:09 AM REASON FOR CONSULT: infected PD catheter REQUESTING PHYSICIAN: Dr. 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 Initially presented to [facility] and 02/25 CTAP showed gastritis, duodenitis; bladder wall thickening, enlarged prostate. He had fluid cultures of his peritonael cavity that were growing stenotrophomonas maltophilia. He had his PD catheter placed by Dr. Thoams at [facility] on 12/31/22. He has a RUE AVF for which he has been receiving dialysis through (placed in 2021). Denies drainage or surrounding erythema or cellulitis on abdominal wall. States his abdominal pain is worse with a BM but has been urinating and having regular bowel movements. Admits to fevers, chills and sweats. ID is following and he is on levaquin and eravacyclin, planning for an extended course of a few weeks. His PD catheter can be flushed but will not draw back. FUNCTIONAL STATUS: Independent No past medical history on file. PAST SURGICAL HISTORY Procedure Laterality Date KNEE ARTHROSCOPY/SURGERY [address] Left knee-[address] FAMILY HISTORY Problem Relation Age of Onset Prostate Cancer Father Heart Mother Diabetes Maternal Grandmother Diabetes Paternal Grandmother Social History Tobacco Use Smoking status: Former Types: Cigarettes Quit date: 05/19/1981 Years since quittin.8 Substance Use Topics Alcohol use: No Drug use: No gabapentin (NEURONTIN) 100 mg capsule, TAKE 2 CAPSULES BY MOUTH ONCE DAILY AT BEDTIME FOR 90 DAYS, Disp: , Rfl: oxyCODONE-acetaminoph en (PERCOCET) 5-325 mg tablet, TAKE 1 TABLET BY MOUTH EVERY 8 HOURS NEEDED FOR PAIN FOR 30 DAYS, Disp: , Rfl: metoprolol tartrate, short acting, 25 mg tablet, Take 0.5 tablets by mouth twice daily., Disp: 30 tablet, Rfl: 0 omeprazole (PRILOSEC) 20 mg capsule, Take 1 capsule by mouth daily before breakfast. 1/2 hr before meal. (Patient taking differently: Take 40 mg by mouth daily before breakfast. 1/2 hr before meal.), Disp: , Rfl: 0 Current Facility-Administered Medications Medication Dose Route Frequency NaCl 0.9% iv flush bag 20 mL INTRAVENOUS PRN metoprolol tartrate (short acting) 12.5 mg tab(s) (LOPRESSOR) 12.5 mg ORAL BID heparin 5,000 Units injection 5,000 Units SUBCUTANEOUS q 12 H senna 17.2 mg tab(s) (SENOKOT) 17.2 mg ORAL DAILY polyethylene glycol 3350 17 g packet 17 g ORAL DAILY nystatin 5 mL oral liquid (MYCOSTATIN) 5 mL ORAL QID pregabalin 25 mg cap(s) (LYRICA) 25 mg ORAL BID oxyCODONE IR 5-10 mg tab(s) (ROXICODONE) 5-10 mg ORAL q 6 H PRN levoFLOXacin 500 mg tab(s) (LEVAQUIN) 500 mg ORAL q 48 HR eravacycline 100 mg in NaCl 0.9% 250 mL (XERAVA) 1 mg/kg/dose INTRAVENOUS q 12 H metoclopramide HCl 5 mg (REGLAN) 5 mg ORAL q 8 H PRN Allergies As of Date: 02/28/2023 Allergen Noted Reaction ASPIRIN 12/01/2022 Other: See Comments SEASONAL ALLERGIES 09/17/2011 Other: See Comments Fully Assessed 02/28/2023 COMPLETE REVIEW OF SYSTEMS: GENERAL: denies fevers or chills HEAD: denies headache or dizziness RESPIRATORY: denies shortness of breath or cough CARDIOVASCULAR: denies chest pain or palpitations GI: + abdominal pain, denies nausea : denies hematuria or dysuria SKIN: denies jaundice or rashes NEURO: denies numbness or weakness PHYSICAL EXAM: GENERAL: resting comfortably, in no acute distress HEENT: normocephalic, atraumatic, EOMI NECK: trachea midline, no JVD LUNGS: Unlabored breathing on RA, equal chest rise bilaterally, no use of accessory muscles CARDIAC: Regular rate as above, extremities warm and well perfused ABDOMEN: Soft, TTP in low midline and LLQ with guarding, PD catheter CDI without surrounding cellulitis or drainage EXTREMITIES: CROOKS, No gross deformities SKIN: Skin color, texture, turgor normal NEURO: AANDO, no gross neurological deficits PSYCH: normal mood and affect DATA: Labs: Recent Labs 03/04/23 0443 03/03/23 0453 NA 135* 134* K 4.5 4.7 CHLOR 101 102 CO2 24 22 BUN 23 28* CREAT 2.28* 2.82* GLUC 104* 100* ANION 10 10 CA 8.3* 9.0 P 2.1* 2.3* ALB 3.4* 3.3* WBC -- 6.44 HB -- 11.0* (more content not included)... Normal [facility] Renal function 2000 panelon 03-04-2023 Albumin [Mass/Vol] 3.4 g/dL Low 3.9-4.9 [facility] Comment on above: Order Comment: Speci men Type: BLOOD SPECIMEN Ordering Facility: [facility] Address: [address] [place] [address] Performed By: #### 2 4362-6 #### [facility] CLIA [id number] [address] [place] Anion gap [Moles/Vol] 10 mmol/L Normal 9-18 [facility] Comment on above: Order Comment: Speci men Type: BLOOD SPECIMEN Ordering Facility: [facility] Address: [address] [place] [address] Performed By: #### 2 4362-6 #### [facility] CLIA [id number] [address] [place] Calcium [Mass/Vol] 8.3 mg/dL Low 8.5-10.2 [facility] Comment on above: Order Comment: Speci men Type: BLOOD SPECIMEN Ordering Facility: [facility] Address: [address] [place] [address] Performed By: #### 2 4362-6 #### [facility] CLIA [id number] 1 [place] [address] [place] Chloride [Moles/Vol] 101 mmol/L Normal 97-105 [facility] Comment on above: Order Comment: Speci men Type: BLOOD SPECIMEN Ordering Facility: [facility] Address: [address] [place] [address] Performed By: #### 2 4362-6 #### [facility] CLIA [id number] 1 [place] [address] [place] CO2 [Moles/Vol] 24 mmol/L Normal 22-30 [facility] Comment on above: Order Comment: Camilo redman Type: BLOOD SPECIMEN Ordering Facility: [facility] Address: [address] [place] [address] Performed By: #### 2 4362-6 #### [facility] CLIA [id number] [address] [place] Creatinine [Mass/Vol] 2.28 mg/dL High 0.73-1.22 [facility] Comment on above: Order Comment: Camilo feroz Type: BLOOD SPECIMEN Ordering Facility: [facility] Address: [address] [place] [address] Performed By: #### 2 4362-6 #### [facility] CLIA [id number] [address] Creatinine and Glomerular filtration rate.predicted panel (S/P/Bld) 29 mL/min/1.73m??? Low >=60 [facility] Comment on above: Order Comment: Camilo feroz Type: BLOOD SPECIMEN Ordering Facility: [facility] Address: [address] [place] [address] Result Comment: Zoë mated Glomerular Filtration Rate (eGFR) is calculated using the 2020 CKD-EPI creatinine equation. This equation utilizes serum creatinine, sex, and age as parameters. The creatinine assay has traceable calibration to isotope dilution-mass spectrometry. Refer to KDIGO guidelines for clinical interpretation. In patients with unstable renal function, e.g. those with acute kidney injury, the eGFR may not accurately reflect actual GFR. Performed By: #### 2 4362-6 #### [facility] CLIA [id number] [address] [place] [address] [place] Glucose [Mass/Vol] 104 mg/dL High 74-99 [facility] Comment on above: Order Comment: Camilo feroz Type: BLOOD SPECIMEN Ordering Facility: [facility] Address: [address] [place] [address] Result Comment: The [place] [employer] (ADA) provides guidance for cutoff values for fasting glucose and random glucose. The ADA defines fasting as no caloric intake for at least 8 hours. Fasting plasma glucose results between 100 to 125 mg/dL indicate increased risk for diabetes (prediabetes). Fasting plasma glucose results greater than or equal to 126 mg/dL meet the criteria for diagnosis of diabetes. In the absence of unequivocal hyperglycemia, results should be confirmed by repeat testing. In a patient with classic symptoms of hyperglycemia or hyperglycemic crisis, random plasma glucose results greater than or equal to 200 mg/dL meet the criteria for diagnosis of diabetes. Reference: Standards of Medical Care in Diabetes 2016, [place] [employer]. Diabetes Care. 2016.39(Suppl 1). Performed By: #### 2 4362-6 #### [facility] CLIA [id number] [address] STATES OF [facility] Phosphate [Mass/Vol] 2.1 mg/dL Low 2.7-4.8 [facility] Comment on above: Order Comment: Camilo men Type: BLOOD SPECIMEN Ordering Facility: [facility] Address: [address] [place] [address] Performed By: #### 2 4362-6 #### [facility] CLIA [id number] [address] [place] [address] [place] Potassium [Moles/Vol] 4.5 mmol/L Normal 3.7-5.1 [facility] Comment on above: Order Comment: Mykei men Type: BLOOD SPECIMEN Ordering Facility: [facility] Address: [address] [place] [address] Performed By: #### 2 4362-6 #### [facility] CLIA [id number] [address] [place] [address] [place] Sodium [Moles/Vol] 135 mmol/L Low 136-144 [facility] Comment on above: Order Comment: Speci men Type: BLOOD SPECIMEN Ordering Facility: [facility] Address: [address] [place] [address] Performed By: #### 2 4362-6 #### [facility] CLIA [id number] [address] [place] [address] [place] Urea nitrogen [Mass/Vol] 23 mg/dL Normal 9-24 [facility] Comment on above: Order Comment: Mykei men Type: BLOOD SPECIMEN Ordering Facility: [facility] Address: [address] [place] [address] Performed By: #### 2 4362-6 #### [facility] [id number] [address] THERAPY NTon 03-04-2023 THERAPY NT HNO ID: [id number] Author: Christine Osorio OTR/L Service: Occupational Therapy Author Type: Occupational Therapist Type: Therapy (PT/OT/Speech/Resp) Filed: 03/04/2023 4:08 PM Note Text: OCCUPATIONAL THERAPY MISSED VISIT SERVICE DATE: 03/04/2023 SERVICE TIME: 1553 to 1604 ROOM: [place] [address] Patient not seen due to Clinical Appropriateness. Pt currently nauseated and had episode of emesis a few minutes prior to start of session. Discussed home set up and prior level of functioning with pt and , Kaley. Will reattempt as able/appropriate. SIGNATURE: SUMMER Gore PATIENT NAME: Franklin Burton DATE: March 04, 2023 TIME: 4:07 PM Normal [facility] THERAPY NT HNO ID: [id number] Author: Mónica Hughes, PT Service: Physical Therapy Author Type: Physical Therapist Type: Therapy (PT/OT/Speech/Resp) Filed: 03/04/2023 12:06 PM Note Text: Physical Therapy Evaluation SERVICE DATE: 03/04/2023 SERVICE TIME: 1015 to 1030 ROOM: [place] [address] Recommended Discharge Disposition: Home PT 6 Clicks Score: 20 Isolation Type: None Current Hospital Course: peripheral neuropathy, ESRD, laparoscopic PD cath placement 12/31/22 Reason for Hospital Admission: abdominal pain Response to Therapy Interventions: Good Participation in Activities, Low Activity Tolerance, Multiple Ongoing Medical Issues Continued Skilled Needs Due to: Functional Mobility/Skill Impairments Physical Therapy Problem List: Education Deficit, Safety Deficits, Decreased Strength, Functional Mobility Impairment, Balance Impaired Treatment Interventions: Education, Strengthening, Functional Mobility Training, Balance Training Home Environment Patient Lives With: Spouse (and sometimes adult son) Assistance Available: 24-Hour Entry To Home: Stairs Number Of Stairs Into Home: 3 (has a stairlift if he didnt want to walk up the steps) Tub/Shower Type: tub Laundry: spouse does Equipment Owned: Cane, Grab Bars- Shower, Shower Chair, Walker- Wheeled Prior Functional Level: Within Functional Limits Prior Functional Level Comments: Independent, does his own ADLs, spouse does majority of IADLs, drives Subjective: peritonitis due to PD cath, stenotrophomomas maltophelia infection. CURRENT FUNCTIONAL STATUS: Most recent performance Current Functional Mobility Assist Level Additional Information Rolling Supine to Sit Stand By Assistance Sit to Supine Stand By Assistance Scooting Sit to Stand Additional Information limited by nauesa Stand to Sit Bed to Chair Toilet/Commode Gait Stairs Curb Step Car Transfer Blank mccabe indicate activity not attempted Range of Motion: WFL Strength: WFL JH-HLM: 3: Sit at edge of bed Learning/Educational Needs: Discharge Plan, Functional Activities/Mobility, Plan of Care, Safety Goals for Plan of Care: Patient/Caregiver Goals: Go Home Able to Perform HEP with: Independent Rolling with: Independent Transfer Supine to/from Sit with: Independent Transfer Sit to/from Stand with: Independent Ambulate with: Independent Distance: 100 Device: No Device Rehab Potential: Good Patient will be discontinued from Physical Therapy when no further skilled needs are identified in this setting. PLAN: PT Frequency: 3 Times Per Week (2-3) Plan of Care developed with: Patient TREATMENT INTERVENTIONS: Therapy Diagnosis: Reduced mobility-other, Muscle Weakness (generalized) Interventions Provided: Evaluation $ Evaluation-Low (96863) Billed Units: 1 unit Training AND Education Provided in: Benefits of In-Hospital Mobility, Role of Physical Therapy The Following Therapeutic Skills Were Used: Movement Facilitation Skilled Treatment Time (minutes): 15 Please see discipline specific clinical documentation flowsheet for complete details for this therapy evaluation/treatment. SIGNATURE: Mónica Hughes, PT PATIENT NAME: Franklin Burton DATE: March 04, 2023 TIME: 12:06 PM Normal [facility] CBC W Auto Differential pane l (Bld)on 03-03-2023 Basophils (Bld) [#/Vol] 0.04 10*3/uL Normal <0.11 [facility] Comment on above: Order Comment: Speci men Type: BLOOD SPECIMEN Ordering Facility: [facility] Address: [address] [place] [address] Performed By: #### 5 7021-8 #### [facility] CLIA [id number] [address] Basophils/100 WBC (Bld) 0.6 % Normal A [facility] Comment on above: Order Comment: Speci men Type: BLOOD SPECIMEN Ordering Facility: [facility] Address: [address] [place] [address] Performed By: #### 5 7021-8 #### [facility] CLIA [id number] [address] Differential cell count method Nom (Bld) Auto Normal [facility] Comment on above: Order Comment: Speci men Type: BLOOD SPECIMEN Ordering Facility: [facility] Address: [address] [place] [address] Performed By: #### 5 7021-8 #### [facility] CLIA [id number] [address] Eosinophils (Bld) [#/Vol] 0.27 10*3/uL Normal <0.46 [facility] Comment on above: Order Comment: Speci men Type: BLOOD SPECIMEN Ordering Facility: [facility] Address: [address] [place] [address] Performed By: #### 5 7021-8 #### [facility] CLIA [id number] [address] Eosinophils/100 WBC (Bld) 4.2 % Normal [facility] Comment on above: Order Comment: Speci men Type: BLOOD SPECIMEN Ordering Facility: [facility] Address: [address] [place] [address] Performed By: #### 5 7021-8 #### [facility] CLIA [id number] [address] [place] Erythrocyte distribution width (RBC) [Ratio] 13.4 % Normal 11.5-15.0 [facility] Comment on above: Order Comment: Speci men Type: BLOOD SPECIMEN Ordering Facility: [facility] Address: [address] [place] [address] Performed By: #### 5 7021-8 #### [facility] CLIA [id number] [address] [place] Hematocrit (Bld) [Volume fraction] 33.4 % Low 39.0-51.0 [facility] Comment on above: Order Comment: Speci men Type: BLOOD SPECIMEN Ordering Facility: [facility] Address: [address] [place] [address] Performed By: #### 5 7021-8 #### [facility] CLIA [id number] [address] [place] [address] [place] Hemoglobin (Bld) [Mass/Vol] 11.0 g/dL Low 13.0-17.0 [facility] Comment on above: Order Comment: Speci men Type: BLOOD SPECIMEN Ordering Facility: [facility] Address: [address] [place] [address] Performed By: #### 5 7021-8 #### [facility] CLIA [id number] [address] [place] Immature granulocytes (Bld) [#/Vol] 0.07 10*3/uL Normal <0.10 [facility] Comment on above: Order Comment: Speci men Type: BLOOD SPECIMEN Ordering Facility: [facility] Address: [address] [place] [address] Performed By: #### 5 7021-8 #### [facility] CLIA [id number] [address] [place] Immature granulocytes/100 WBC (Bld) 1.1 % Normal [facility] Comment on above: Order Comment: Speci men Type: BLOOD SPECIMEN Ordering Facility: [facility] Address: [address] [place] [address] Performed By: #### 5 7021-8 #### [facility] CLIA [id number] [address] [place] Lymphocytes (Bld) [#/Vol] 0.54 10*3/uL Low 1.00-4.00 [facility] Comment on above: Order Comment: Speci men Type: BLOOD SPECIMEN Ordering Facility: [facility] Address: [address] [place] [address] Performed By: #### 5 7021-8 #### [facility] CLIA [id number] [address] Lymphocytes/100 WBC (Bld) 8.4 % Normal [facility] Comment on above: Order Comment: Speci men Type: BLOOD SPECIMEN Ordering Facility: [facility] Address: [address] [place] [address] Performed By: #### 5 7021-8 #### [facility] CLIA [id number] [address] MCH (RBC) [Entitic mass] 31.3 pg Normal 26.0-34.0 [facility] Comment on above: Order Comment: Speci men Type: BLOOD SPECIMEN Ordering Facility: [facility] Address: [address] [place] [address] Performed By: #### 5 7021-8 #### [facility] CLIA [id number] [address] MCHC (RBC) [Mass/Vol] 32.9 g/dL Normal 30.5-36.0 [facility] Comment on above: Order Comment: Speci men Type: BLOOD SPECIMEN Ordering Facility: [facility] Address: [address] [place] [address] Performed By: #### 5 7021-8 #### [facility] CLIA [id number] [address] MCV (RBC) [Entitic vol] 95.2 fL Normal 80.0-100.0 [facility] Comment on above: Order Comment: Speci men Type: BLOOD SPECIMEN Ordering Facility: [facility] Address: [address] [place] [address] Performed By: #### 5 7021-8 #### [facility] CLIA [id number] [address] Monocytes (Bld) [#/Vol] 0.61 10*3/uL Normal <0.87 [facility] Comment on above: Order Comment: Speci men Type: BLOOD SPECIMEN Ordering Facility: [facility] Address: [address] [place] [address] Performed By: #### 5 7021-8 #### [facility] CLIA [id number] [address] [place] Monocytes/100 WBC (Bld) 9.5 % Normal A [facility] Comment on above: Order Comment: Speci men Type: BLOOD SPECIMEN Ordering Facility: [facility] Address: [address] [place] [address] Performed By: #### 5 7021-8 #### [facility] CLIA [id number] [address] [place] [address] [place] Neutrophils (Bld) [#/Vol] 4.91 10*3/uL Normal 1.45-7.50 [facility] Comment on above: Order Comment: Speci men Type: BLOOD SPECIMEN Ordering Facility: [facility] Address: [address] [place] [address] Performed By: #### 5 7021-8 #### [facility] CLIA [id number] [address] [place] Neutrophils/100 WBC (Bld) 76.2 % Normal [facility] Comment on above: Order Comment: Speci men Type: BLOOD SPECIMEN Ordering Facility: [facility] Address: [address] [place] [address] Performed By: #### 5 7021-8 #### [facility] CLIA [id number] [address] [place] Nucleated RBC (Bld) [#/Vol] 10*3/uL Normal <0.01 [facility] Comment on above: Order Comment: Speci men Type: BLOOD SPECIMEN Ordering Facility: [facility] Address: [address] [place] [address] Performed By: #### 5 7021-8 #### [facility] CLIA [id number] [address] [place] Nucleated RBC/100 WBC (Bld) [Ratio] 0.0 /100 WBC Normal [facility] Comment on above: Order Comment: Speci men Type: BLOOD SPECIMEN Ordering Facility: [facility] Address: [address] [place] [address] Performed By: #### 5 7021-8 #### [facility] CLIA [id number] [address] Platelet mean volume (Bld) [Entitic vol] 9.6 fL Normal 9.0-12.7 [facility] Comment on above: Order Comment: Speci men Type: BLOOD SPECIMEN Ordering Facility: [facility] Address: [address] [place] [address] Performed By: #### 5 7021-8 #### [facility] CLIA [id number] [address] [place] Platelets (Bld) [#/Vol] 140 10*3/uL Low 150-400 [facility] Comment on above: Order Comment: Speci men Type: BLOOD SPECIMEN Ordering Facility: [facility] Address: [address] [place] [address] Performed By: #### 5 7021-8 #### [facility] CLIA [id number] [address] [place] RBC (Bld) [#/Vol] 3.51 10*6/uL Low 4.20-6.00 [facility] Comment on above: Order Comment: Speci men Type: BLOOD SPECIMEN Ordering Facility: [facility] Address: [address] [place] [address] Performed By: #### 5 7021-8 #### [facility] CLIA [id number] [address] [place] WBC (Bld) [#/Vol] 6.44 10*3/uL Normal 3.70-11.00 [facility] Comment on above: Order Comment: Speci men Type: BLOOD SPECIMEN Ordering Facility: [facility] Address: [address] [place] [address] Performed By: #### 5 7021-8 #### [facility] CLIA [id number] [address] [place] CONSULTon 03-03-2023 CONSULT HNO ID: [id number] Author: January Hunter MD Service: Infectious Disease Author Type: Physician Type: Consults Filed: 03/03/2023 2:10 PM Note Text: INITIAL CONSULT INFECTIOUS DISEASE SERVICE DATE: 03/03/2023 SERVICE TIME: 1120 We were asked to evaluate Mr. Franklin Burton, a 77 year old yo male by Dr. Sandovalist for PD catheter with infection/peritonitis can we salvage catheter?. Our findings and recommendations will be communicated through the shared medical record. 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 Would treat 2 to 3 weeks possibly 3 since this organism likes to become resistant and there has been data for combination therapy for serious infection such as pneumonia. Cefepime frequently does not cover this so I will change him over to levofloxacin if it is not already ordered as he did receive a dose on the and also eravacycline for now. Possibly home could be levofloxacin and minocycline #2-peritonitis from PD catheter-even if catheter was fully functional and he could get proper therapy for 2- 3 weeks, all we can say is you can attempt salvage understanding the fact that there is a higher risk of recurrence and you would have to start all over and remove the catheter at that point. This patient however has a catheter that is not functioning so my opinion if renal agrees it might need to be removed #3-fever and chills from earlier in infection currently down #4-dialysis patient now back on hemodialysis which affects dosing #5-comorbidities of hypertension, history of Zach's granulomatosis 6-antibiotic monitoring-tolerates RECOMMENDATIONS: -Levofloxacin and have a cyclin for now with eventual possibly all oral equals IV therapy at discharge -Strongly consider catheter change since its not working and therefore high risk of retained organisms causing treatment failure. This needs to be discussed with renal Subjective SUBJECTIVE: HPI: 77 year old male , Quaker male on PD since December 31, 2022 when he had his first catheter put in (hemodialysis with left arm AV fistula since July 2022), history of Zach's granulomatosis that he states no longer on medications for but in 2013 had some chemotherapy and other medications that he cannot remember-H [employer] list this is in remission, still has bad sinuses plus the kidney failure but not sure about lung disease, presented to [facility] 02/[facility]/2023 for transfer from [facility] where he had been for about 3 days after about 10 to 14 days of progressive abdominal pain and inability to do peritoneal dialysis due to pain exacerbation with such. Transferred here with PD associated peritonitis and catheter infection. Patient cannot remember antibiotics at [facility] but currently on cefepime and recently had vancomycin which may have done a phlebitis with pain and itching of the right forearm from an IV site that is now removed as of 03/02, and states some improvement in peritonitis pain. Some of the history is per his and daughter whom he gives permission to be in the room and later his son and [id number]. Patient states he is feeling better and that he has very lower abdominal pain but not as severe and not as much. Had a fever and chills since he has been here and felt worse and weak when he first went in the [facility]. He is now back on dialysis. Denies antibiotic issues, shortness of breath, cardiac complaints. Per pharmacy note on February 28 patient must of started on vancomycin February 27 Patient had fluid aspirate sent at [facility] but apparently they cannot draw back on the catheter here nor flush. Apparently he initially came over on vancomycin and ceftriaxone. No antibiotic allergies Active Antimicrobials (From admission, onward) Start Stop 03/03/23 1300 sulfamethoxazole-trim ethoprim 800-160 mg 0.5 tablet (BACTRIM DS) 0.5 tablet, ORAL, EVERY FRI-FRI-FRI -- 03/02/23 0730 cefepime 1 g in D5W 100 mL Vial-Bag (MAXIPIME) 1 g, INTRAVENOUS, Every 12 hours -- 03/01/23 1300 nystatin 5 mL oral liquid (MYCOSTATIN) 5 mL, ORAL, 4 TIMES DAILY -- 03/01/23 0000 vancomycin dosing and monitoring per pharmacy OTHER, DIRECTED -- Immunosuppressants: Patient cannot remember when he went off of the Current other medications reviewed. Current Facility-Administered Medications Medication Dose Route Frequency vancomycin dosing and monitoring per pharmacy OTHER As Directed NaCl 0.9% iv flush bag 20 mL INTRAVENOUS PRN metoprolol tartrate (short acting) 12.5 mg tab(s) (LOPRESSOR) 12.5 mg ORAL BID heparin 5,000 Units injection 5,000 Units SUBCUTANEOUS q 12 H senna 17.2 mg tab(s) (SENOKOT) 17.2 mg ORAL DAILY polyethylene glycol 3350 17 g packet 17 g ORAL DAILY nystatin 5 mL oral liquid (MYCOSTATIN) 5 mL ORAL QID pregabalin 25 mg cap(s) (LYRICA) 25 mg ORAL BID cefepime 1 g in D5W 100 mL Vial-Bag (MAXIPIME) 1 g INTRAVENOUS q12 (more content not included)... Normal [facility] CONSULT PROGon 03-03-2023 CONSULT PROG HNO ID: [id number] Author: Maurice Kiran MD Service: Nephrology Author Type: Physician Type: Consult Progress Note Filed: 03/03/2023 6:26 PM Note Text: Medical Intensive Care Consult Note / HANDP March 03, 2023 Patient Name: Franklin Burton Patient Location: [id number]* Admission Date: 02/28/2023 Length of Stay: 2 History of present illness: This is a 77-year-old male who was seen by nephrology consultation for peritoneal dialysis, resulting peritonitis. 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 Patient has a left arm fistula in place, and reportedly he received hemodialysis but was took. He is also scheduled to receive hemodialysis today. Per records from [facility], cultures of the PD catheter showed stenotrophomis maltphitous, sensitive to Bactrim and ceftriaxone. Patient however has been on Vanco and cefepime. Subjective ROS REVIEW OF SYSTEMS 10 points of ROS completed Patient denies any fever, chills No double or blurry vision, no headache or dizziness No cough, dyspnea or any chest pain No abd pain diarrhea or constipation No dysuria, or incontinence No skin rash or lesion or itching No weight loss No mood change or insomnia The rest of positive findings seen in HPI No past medical history on file. PAST SURGICAL HISTORY Procedure Laterality Date KNEE ARTHROSCOPY/SURGERY [address] knee-[address] Family History Problem Relation Age of Onset Prostate Cancer Father Heart Mother Diabetes Maternal Grandmother Diabetes Paternal Grandmother Social History Tobacco Use Smoking status: Former Types: Cigarettes Quit date: 05/19/1981 Years since quittin.8 Substance Use Topics Alcohol use: No Drug use: No No current facility-administered medications on file prior to encounter. Current Outpatient Medications on File Prior to Encounter Medication Sig gabapentin (NEURONTIN) 100 mg capsule TAKE 2 CAPSULES BY MOUTH ONCE DAILY AT BEDTIME FOR 90 DAYS metoprolol tartrate, short acting, 25 mg tablet Take 0.5 tablets by mouth twice daily. omeprazole (PRILOSEC) 20 mg capsule Take 1 capsule by mouth daily before breakfast. 1/2 hr before meal. (Patient taking differently: Take 40 mg by mouth daily before breakfast. 1/2 hr before meal.) oxyCODONE-acetaminoph en (PERCOCET) 5-325 mg tablet TAKE 1 TABLET BY MOUTH EVERY 8 HOURS NEEDED FOR PAIN FOR 30 DAYS Objective Present Condition: 03/02/23 1800 03/02/23 2130 03/03/23 0443 03/03/23 0749 BP: 146/77 140/77 124/71 149/76 Pulse: 86 66 75 94 Resp: 20 18 18 18 Temp: 36.8 ?C (98.2 ?F) 36.9 ?C (98.4 ?F) 37.2 ?C (99 ?F) 36.9 ?C (98.4 ?F) TempSrc: Oral Oral Oral Oral SpO2: 96% 96% 98% 97% Weight: Height: Physical Exam Constitutional: Appearance: Normal appearance. HENT: Head: Normocephalic and atraumatic. Nose: Nose normal. Mouth/Throat: Mouth: Mucous membranes are moist. Eyes: Extraocular Movements: Extraocular movements intact. Cardiovascular: Rate and Rhythm: Normal rate and regular rhythm. Abdominal: General: Abdomen is flat. There is distension. Palpations: Abdomen is soft. Tenderness: There is abdominal tenderness. Musculoskeletal: Right lower leg: No edema. Left lower leg: No edema. Skin: Capillary Refill: Capillary refill takes less than 2 seconds. Neurological: Mental Status: He is alert. Labs: CBC: Recent Labs 03/03/23 0453 03/01/23 0946 WBC 6.44 7.12 HB 11.0* 10.6* HCT 33.4* 32.3* PLT 140* 118* MCV 95.2 95.3 RDWCV 13.4 14.0 NEUTP 76.2 83.3 ABSNEUT 4.91 5.93 LYMPHP 8.4 7.4 MONOP 9.5 4.8 COAG: No results for input(s): "APTT", "INR" in the last 168 hours. BMP: Recent Labs 03/03/2345203/02/23 0256 03/01/23 0946 GLUC 100* 127* 154* NA 134* 131* 134* K 4.7 4.5 4.2 CHLOR 102 101 103 CO2 22 22 22 ANION 10 8* 9 BUN 28* 26* 22 CREAT 2.82* 2.94* 2.71* 2.71* CHEM: Recent Labs 03/03/233 03/02/23 0256 03/01/23 0946 ALB 3.3* 3.1* 3.1* TPROT -- -- 5.3* CA 9.0 8.7 8.7 HEPATIC: Recent Labs 03/01/23 0946 ALKPHOS 125* ALT 14 AST 19 TBILI 0.4 URINALYSIS:No results for input(s): "PH", "SPGR", "UGLUC", "UBILI", "UKET", "UHB", "UPROT", "UROBIL", "UWBC", "SSA" in the last 168 hours. Invalid input(s): NITR CARDIAC: No results for input(s): "CKTEST", "CKMB", "CKMBP" in the last 168 hours.TROPONIN@:8,No results found for: "BNP":8)@ Assessment/Plan Assessment/Plan: ESRD on PD, now requiring HD with currently fistula Scheduled for HD today F/u ID recc's on antibiotics May need PD catheter replacement Will continue to follow Signed: Constantin Fernandez MD, PGY-3 Pager: [phone] Date: March 03, 2023 Time: 2:40 PM Recommendations are not finalized until co-signed by Staff physician. JACINDA (more content not included)... Normal [facility] CONSULT PROG HNO ID: [id number] Author: Talia Amador RPh Service: Pharmacy Author Type: Pharmacist Type: Consult Progress Note Filed: 03/03/2023 2:35 PM Note Text: PHARMACY VANCOMYCIN DOSING NOTE Patient Name: Franklin Burton Admission Date: 02/28/2023 Date of Consult: 03/03/2023 Time of Consult: 2:34 PM Vancomycin therapy has been discontinued. Vancomycin level(s) have been discontinued: Yes. Pharmacy vancomycin dosing service will sign off. Thank you for allowing us to participate in this patient's care. Please contact pharmacy if there are questions. Talia Amador, [facility] Normal [facility] HBV surface Ag Ser Qlon 10-1 HBV surface Ag Ql (S) Non-Reactive Normal Nonreactive [facility] Comment on above: Order Comment: Camilo redman Type: BLOOD SPECIMEN Ordering Facility: [facility] Address: [address] [place] [address] Performed By: #### 5 195-3 #### [facility] CLIA [id number] [address] [place] Renal function 2000 panelon 03-03-2023 Albumin [Mass/Vol] 3.3 g/dL Low 3.9-4.9 [facility] Comment on above: Order Comment: Camilo redman Type: BLOOD SPECIMEN Ordering Facility: [facility] Address: [address] [place] [address] Performed By: #### 2 4362-6 #### [facility] CLIA [id number] [address] [place] [address] [place] Anion gap [Moles/Vol] 10 mmol/L Normal 9-18 [facility] Comment on above: Order Comment: Camilo redman Type: BLOOD SPECIMEN Ordering Facility: [facility] Address: [address] [place] [address] Performed By: #### 2 4362-6 #### [facility] CLIA [id number] [address] [place] [address] [place] Calcium [Mass/Vol] 9.0 mg/dL Normal 8.5-10.2 [facility] Comment on above: Order Comment: Mykei men Type: BLOOD SPECIMEN Ordering Facility: [facility] Address: [address] [place] [address] Performed By: #### 2 4362-6 #### [facility] CLIA [id number] [address] [place] [address] [place] Chloride [Moles/Vol] 102 mmol/L Normal 97-105 [facility] Comment on above: Order Comment: Speci men Type: BLOOD SPECIMEN Ordering Facility: [facility] Address: [address] [place] [address] Performed By: #### 2 4362-6 #### [facility] CLIA [id number] [address] [place] CO2 [Moles/Vol] 22 mmol/L Normal 22-30 [facility] Comment on above: Order Comment: Speci men Type: BLOOD SPECIMEN Ordering Facility: [facility] Address: [address] [place] [address] Performed By: #### 2 4362-6 #### [facility] CLIA [id number] [address] [place] [address] [facility] Creatinine [Mass/Vol] 2.82 mg/dL High 0.73-1.22 [facility] Comment on above: Order Comment: Speci men Type: BLOOD SPECIMEN Ordering Facility: [facility] Address: [address] [place] [address] Performed By: #### 2 4362-6 #### [facility] CLIA [id number] [address] [place] [address] Creatinine and Glomerular filtration rate.predicted panel (S/P/Bld) 22 mL/min/1.73m??? Low >=60 [facility] Comment on above: Order Comment: Speci men Type: BLOOD SPECIMEN Ordering Facility: [facility] Address: [address] [place] [address] Result Comment: Zoë mated Glomerular Filtration Rate (eGFR) is calculated using the 2020 CKD-EPI creatinine equation. This equation utilizes serum creatinine, sex, and age as parameters. The creatinine assay has traceable calibration to isotope dilution-mass spectrometry. Refer to KDIGO guidelines for clinical interpretation. In patients with unstable renal function, e.g. those with acute kidney injury, the eGFR may not accurately reflect actual GFR. Performed By: #### 2 4362-6 #### [facility] CLIA [id number] [address] [place] [address] [place] Glucose [Mass/Vol] 100 mg/dL High 74-99 [facility] Comment on above: Order Comment: Camilo redman Type: BLOOD SPECIMEN Ordering Facility: [facility] Address: [address] [place] [address] Result Comment: The [place] [employer] (ADA) provides guidance for cutoff values for fasting glucose and random glucose. The ADA defines fasting as no caloric intake for at least 8 hours. Fasting plasma glucose results between 100 to 125 mg/dL indicate increased risk for diabetes (prediabetes). Fasting plasma glucose results greater than or equal to 126 mg/dL meet the criteria for diagnosis of diabetes. In the absence of unequivocal hyperglycemia, results should be confirmed by repeat testing. In a patient with classic symptoms of hyperglycemia or hyperglycemic crisis, random plasma glucose results greater than or equal to 200 mg/dL meet the criteria for diagnosis of diabetes. Reference: Standards of Medical Care in Diabetes 2016, [place] [employer]. Diabetes Care. 2016.39(Suppl 1). Performed By: #### 2 4362-6 #### [facility] CLIA [id number] 1 [place] [address] [place] Phosphate [Mass/Vol] 2.3 mg/dL Low 2.7-4.8 [facility] Comment on above: Order Comment: Camilo redman Type: BLOOD SPECIMEN Ordering Facility: [facility] Address: [address] [place] [address] Performed By: #### 2 4362-6 #### [facility] CLIA [id number] 1 [place] [address] [place] Potassium [Moles/Vol] 4.7 mmol/L Normal 3.7-5.1 [facility] Comment on above: Order Comment: Camilo redman Type: BLOOD SPECIMEN Ordering Facility: [facility] Address: [address] [place] [address] Performed By: #### 2 4362-6 #### [facility] CLIA [id number] 1 [place] [address] [place] Sodium [Moles/Vol] 134 mmol/L Low 136-144 [facility] Comment on above: Order Comment: Camilo redman Type: BLOOD SPECIMEN Ordering Facility: [facility] Address: [address] [place] [address] Performed By: #### 2 4362-6 #### [facility] CLIA [id number] [address] STATES OF [facility] Urea nitrogen [Mass/Vol] 28 mg/dL High 9-24 [facility] Comment on above: Order Comment: Speci men Type: BLOOD SPECIMEN Ordering Facility: [facility] Address: [place] [address] Performed By: #### 2 4362-6 #### [facility] CLIA [id number] [address] [place] THERAPY NTon 03-03-2023 THERAPY NT HNO ID: [id number] Author: Mónica Hughes, PT Service: Physical Therapy Author Type: Physical Therapist Type: Therapy (PT/OT/Speech/Resp) Filed: 03/03/2023 1:41 PM Note Text: PHYSICAL THERAPY MISSED VISIT SERVICE DATE: 03/03/2023 SERVICE TIME: 1339 to 1339 ROOM: [place] [address] ([facility]) Patient not seen due to Test / Procedure (at HD). SIGNATURE: Mónica Hughes, PT PATIENT NAME: Franklin Burton DATE: March 03, 2023 TIME: 1:40 PM Normal [facility] Vancomycin random [Mass/Vol] on 03-03-2023 Vancomycin [Mass/Vol] 15.8 ug/mL Normal 10.0-20.0 [facility] Comment on above: Order Comment: Speci men Type: BLOOD SPECIMEN Ordering Facility: [facility] Address: [address] [place] [address] Result Comment: Refe rence ranges and high/low indicator flags are provided as general guidelines only. The treating physician must determine appropriate target levels/dosing based on the specific clinical situation. Performed By: #### 2 4362-6 #### [facility] CLIA [id number] [address] [place] Bacteria Bld Culton 03-02-20 23 Bacteria identified Cx Nom (Bld) CULTURE, BLOOD: No growth 5 days Normal [facility] Comment on above: Performed By: #### 6 00-7 #### [facility] CLIA [id number] [address] Bacteria identified Cx Nom (Bld) CULTURE, BLOOD: No growth 5 days Normal [facility] Comment on above: Performed By: #### 6 00-7 #### [facility] CLIA [id number] [address] CONSULT PROGon 03-02-2023 CONSULT PROG HNO ID: [id number] Author: Coty Sheppard RPh Service: Pharmacy Author Type: Pharmacist Type: Consult Progress Note Filed: 03/02/2023 7:20 AM Note Text: PHARMACY PROGRESS NOTE Patient Name: Franklin Burton Admission Date: 02/28/2023 Date of Consult: 03/02/2023 Time of Consult: 7:19 AM In accordance with the pharmacy dose optimization service, the following medication changes have been made: Medication Dose Frequency Indication Assessment/Plan Cefepime 1g q12H Infection Order has been modified to standard dosing based on the patient's estimated renal function: CrCl 24.1ml/min Medications opted-in to the pharmacy dose optimization service (From admission, onward) Start Ordered 03/02/23 0900 cefepime 1 g in D5W 100 mL Vial-Bag (MAXIPIME) EVERY 24 HOURS Question Answer Comment Antimicrobial indication Empiric Pharmacist may modify dose per [facility] dose optimization consult agreement Yes 03/02/23 0711 For medications which dose is dependent on renal function, a pharmacist will monitor renal function daily and adjust doses accordingly. Any dose adjustments needed based on changes in indication will require an LIP to enter a new order. Estimated Creatinine Clearance: 24.1 mL/min (A) (based on SCr of 2.94 mg/dL (H)). Serum creatinine and eGFR results 72 hours 03/02/2023 03/01/2023 2:56 AM 9:46 AM SCr 2.94 2.71 2.71 eGFR 21 24 24 Comment for eGFR at 2:56 AM on 03/02/2023: Estimated Glomerular Filtration Rate (eGFR) is calculated using the 2020 CKD-EPI creatinine equation. This equation utilizes serum creatinine, sex, and age as parameters. The creatinine assay has traceable calibration to isotope dilution-mass spectrometry. Refer to KDIGO guidelines for clinical interpretation. In patients with unstable renal function, e.g. those with acute kidney injury, the eGFR may not accurately reflect actual GFR. Comment for eGFR at 9:46 AM on 03/01/2023: Estimated Glomerular Filtration Rate (eGFR) is calculated using the 2020 CKD-EPI creatinine equation. This equation utilizes serum creatinine, sex, and age as parameters. The creatinine assay has traceable calibration to isotope dilution-mass spectrometry. Refer to KDIGO guidelines for clinical interpretation. In patients with unstable renal function, e.g. those with acute kidney injury, the eGFR may not accurately reflect actual GFR. Comment for eGFR at 9:46 AM on 03/01/2023: Estimated Glomerular Filtration Rate (eGFR) is calculated using the 2020 CKD-EPI creatinine equation. This equation utilizes serum creatinine, sex, and age as parameters. The creatinine assay has traceable calibration to isotope dilution-mass spectrometry. Refer to KDIGO guidelines for clinical interpretation. In patients with unstable renal function, e.g. those with acute kidney injury, the eGFR may not accurately reflect actual GFR. Estimated Glomerular Filtration Rate (eGFR) is calculated using the 2020 CKD-EPI creatinine equation. This equation utilizes serum creatinine, sex, and age as parameters. The creatinine assay has traceable calibration to isotope dilution-mass spectrometry. Refer to KDIGO guidelines for clinical interpretation. In patients with unstable renal function, e.g. those with acute kidney injury, the eGFR may not accurately reflect actual GFR. Allergies: ALLERGIES Allergen Reactions Aspirin Other: See Comments Kidney issues Seasonal Allergies Other: See Comments Sneezing, itchy and watery eyes Last 3 Encounter Wt Readings: Date: Wt: 02/28/2023 96.5 kg (212 lb 11.2 oz) 12/01/2022 96.6 kg (213 lb) 12/03/2013 88 kg (194 lb) Last 1 Encounter Ht Readings: Date: Ht: 02/28/2023 172.7 cm (5' 8") Temp (24hrs), Av.8 ?C (100.1 ?F), Min:36.6 ?C (97.9 ?F), Max:39.3 ?C (102.7 ?F) - Current Temp: 36.6 ?C (97.9 ?F) Coty Sheppard, [facility] March 02, 2023 7:19 AM Normal [facility] Renal function 2000 panelon 03-02-2023 Albumin [Mass/Vol] 3.1 g/dL Low 3.9-4.9 [facility] Comment on above: Order Comment: Speci men Type: BLOOD SPECIMEN Ordering Facility: [facility] Address: [address] [place] [address] Performed By: #### 2 4362-6 #### [facility] CLIA [id number] 1 [place] [address] [place] Anion gap [Moles/Vol] 8 mmol/L Low 9-18 [facility] Comment on above: Order Comment: Speci men Type: BLOOD SPECIMEN Ordering Facility: [facility] Address: [address] [place] [address] Performed By: #### 2 4362-6 #### [facility] CLIA [id number] 1 [place] [address] [place] Calcium [Mass/Vol] 8.7 mg/dL Normal 8.5-10.2 [facility] Comment on above: Order Comment: Speci men Type: BLOOD SPECIMEN Ordering Facility: [facility] Address: [address] [place] [address] Performed By: #### 2 4362-6 #### [facility] CLIA [id number] 1 [place] [address] [place] Chloride [Moles/Vol] 101 mmol/L Normal 97-105 [facility] Comment on above: Order Comment: Speci men Type: BLOOD SPECIMEN Ordering Facility: [facility] Address: [address] [place] [address] Performed By: #### 2 4362-6 #### [facility] CLIA [id number] 1 [place] [address] [place] CO2 [Moles/Vol] 22 mmol/L Normal 22-30 [facility] Comment on above: Order Comment: Speci men Type: BLOOD SPECIMEN Ordering Facility: [facility] Address: [address] [place] [address] Performed By: #### 2 4362-6 #### [facility] CLIA [id number] 1 [place] [address] [place] Creatinine [Mass/Vol] 2.94 mg/dL High 0.73-1.22 [facility] Comment on above: Order Comment: Specloretta redman Type: BLOOD SPECIMEN Ordering Facility: [facility] Address: [address] [place] [address] Performed By: #### 2 4362-6 #### [facility] CLIA [id number] [address] OF [facility] Creatinine and Glomerular filtration rate.predicted panel (S/P/Bld) 21 mL/min/1.73m??? Low >=60 [facility] Comment on above: Order Comment: Camilo redman Type: BLOOD SPECIMEN Ordering Facility: [facility] Address: [address] [place] [address] Result Comment: Zoë mated Glomerular Filtration Rate (eGFR) is calculated using the 2020 CKD-EPI creatinine equation. This equation utilizes serum creatinine, sex, and age as parameters. The creatinine assay has traceable calibration to isotope dilution-mass spectrometry. Refer to KDIGO guidelines for clinical interpretation. In patients with unstable renal function, e.g. those with acute kidney injury, the eGFR may not accurately reflect actual GFR. Performed By: #### 2 4362-6 #### [facility] CLIA [id number] [address] [place] Glucose [Mass/Vol] 127 mg/dL High 74-99 [facility] Comment on above: Order Comment: Camilo redman Type: BLOOD SPECIMEN Ordering Facility: [facility] Address: [address] [place] [address] Result Comment: The [place] Diabetes Association (ADA) provides guidance for cutoff values for fasting glucose and random glucose. The ADA defines fasting as no caloric intake for at least 8 hours. Fasting plasma glucose results between 100 to 125 mg/dL indicate increased risk for diabetes (prediabetes). Fasting plasma glucose results greater than or equal to 126 mg/dL meet the criteria for diagnosis of diabetes. In the absence of unequivocal hyperglycemia, results should be confirmed by repeat testing. In a patient with classic symptoms of hyperglycemia or hyperglycemic crisis, random plasma glucose results greater than or equal to 200 mg/dL meet the criteria for diagnosis of diabetes. Reference: Standards of Medical Care in Diabetes 2016, [place] [employer]. Diabetes Care. 2016.39(Suppl 1). Performed By: #### 2 4362-6 #### [facility] CLIA [id number] [address] STATES [place] [facility] Phosphate [Mass/Vol] 2.6 mg/dL Low 2.7-4.8 [facility] Comment on above: Order Comment: Speci men Type: BLOOD SPECIMEN Ordering Facility: [facility] Address: [address] [place] [address] Performed By: #### 2 4362-6 #### [facility] CLIA [id number] [address] [place] Potassium [Moles/Vol] 4.5 mmol/L Normal 3.7-5.1 [facility] Comment on above: Order Comment: Speci men Type: BLOOD SPECIMEN Ordering Facility: [facility] Address: [address] [place] [address] Performed By: #### 2 4362-6 #### [facility] CLIA [id number] [address] STATES [facility] Sodium [Moles/Vol] 131 mmol/L Low 136-144 [facility] Comment on above: Order Comment: Speci men Type: BLOOD SPECIMEN Ordering Facility: [facility] Address: [address] [place] [address] Performed By: #### 2 4362-6 #### [facility] CLIA [id number] [address] [place] Urea nitrogen [Mass/Vol] 26 mg/dL High 9-24 [facility] Comment on above: Order Comment: Speci men Type: BLOOD SPECIMEN Ordering Facility: [facility] Address: [address] [place] [address] Performed By: #### 2 4362-6 #### [facility] CLIA [id number] [address] OF [facility] CBC W Auto Differential pane l (Bld)on 03-01-2023 Basophils (Bld) [#/Vol] 10*3/uL Normal <0.11 [facility] Comment on above: Order Comment: Speci men Type: BLOOD SPECIMEN Ordering Facility: [facility] Address: [address] [place] [address] Performed By: #### 5 7021-8 #### [facility] CLIA [id number] [address] Basophils/100 WBC (Bld) 0.3 % Normal A [facility] Comment on above: Order Comment: Speci men Type: BLOOD SPECIMEN Ordering Facility: [facility] Address: [address] [place] [address] Performed By: #### 5 7021-8 #### [facility] CLIA [id number] [address] Differential cell count method Nom (Bld) Auto Normal [facility] Comment on above: Order Comment: Speci men Type: BLOOD SPECIMEN Ordering Facility: [facility] Address: [address] [place] [address] Performed By: #### 5 7021-8 #### [facility] CLIA [id number] [address] OF [facility] Eosinophils (Bld) [#/Vol] 0.25 10*3/uL Normal <0.46 [facility] Comment on above: Order Comment: Speci men Type: BLOOD SPECIMEN Ordering Facility: [facility] Address: [address] [place] [address] Performed By: #### 5 7021-8 #### [facility] CLIA [id number] [address] Eosinophils/100 WBC (Bld) 3.5 % Normal [facility] Comment on above: Order Comment: Speci men Type: BLOOD SPECIMEN Ordering Facility: [facility] Address: [address] [place] [address] Performed By: #### 5 7021-8 #### [facility] CLIA [id number] [address] Erythrocyte distribution width (RBC) [Ratio] 14.0 % Normal 11.5-15.0 [facility] Comment on above: Order Comment: Speci men Type: BLOOD SPECIMEN Ordering Facility: [facility] Address: [address] [place] [address] Performed By: #### 5 7021-8 #### [facility] CLIA [id number] [address] OF [facility] Hematocrit (Bld) [Volume fraction] 32.3 % Low 39.0-51.0 [facility] Comment on above: Order Comment: Speci men Type: BLOOD SPECIMEN Ordering Facility: [facility] Address: [address] [place] [address] Performed By: #### 5 7021-8 #### [facility] CLIA [id number] [address] [place] Hemoglobin (Bld) [Mass/Vol] 10.6 g/dL Low 13.0-17.0 [facility] Comment on above: Order Comment: Speci men Type: BLOOD SPECIMEN Ordering Facility: [facility] Address: [address] [place] [address] Performed By: #### 5 7021-8 #### [facility] CLIA [id number] [address] Immature granulocytes (Bld) [#/Vol] 0.05 10*3/uL Normal <0.10 [facility] Comment on above: Order Comment: Speci men Type: BLOOD SPECIMEN Ordering Facility: [facility] Address: [address] [place] [address] Performed By: #### 5 7021-8 #### [facility] CLIA [id number] [address] Immature granulocytes/100 WBC (Bld) 0.7 % Normal [facility] Comment on above: Order Comment: Speci men Type: BLOOD SPECIMEN Ordering Facility: [facility] Address: [address] [place] [address] Performed By: #### 5 7021-8 #### [facility] CLIA [id number] [address] Lymphocytes (Bld) [#/Vol] 0.53 10*3/uL Low 1.00-4.00 [facility] Comment on above: Order Comment: Speci men Type: BLOOD SPECIMEN Ordering Facility: [facility] Address: [address] [place] [address] Performed By: #### 5 7021-8 #### [facility] CLIA [id number] [address] Lymphocytes/100 WBC (Bld) 7.4 % Normal [facility] Comment on above: Order Comment: Speci men Type: BLOOD SPECIMEN Ordering Facility: [facility] Address: [address] [place] [address] Performed By: #### 5 7021-8 #### [facility] CLIA [id number] [address] MCH (RBC) [Entitic mass] 31.3 pg Normal 26.0-34.0 [facility] Comment on above: Order Comment: Speci men Type: BLOOD SPECIMEN Ordering Facility: [facility] Address: [address] [place] [address] Performed By: #### 5 7021-8 #### [facility] CLIA [id number] [address] MCHC (RBC) [Mass/Vol] 32.8 g/dL Normal 30.5-36.0 [facility] Comment on above: Order Comment: Speci men Type: BLOOD SPECIMEN Ordering Facility: [facility] Address: [address] [place] [address] Performed By: #### 5 7021-8 #### [facility] CLIA [id number] [address] MCV (RBC) [Entitic vol] 95.3 fL Normal 80.0-100.0 [facility] Comment on above: Order Comment: Speci men Type: BLOOD SPECIMEN Ordering Facility: [facility] Address: [address] [place] [address] Performed By: #### 5 7021-8 #### [facility] CLIA [id number] [address] [place] Monocytes (Bld) [#/Vol] 0.34 10*3/uL Normal <0.87 [facility] Comment on above: Order Comment: Speci men Type: BLOOD SPECIMEN Ordering Facility: [facility] Address: [address] [place] [address] Performed By: #### 5 7021-8 #### [facility] CLIA [id number] [address] Monocytes/100 WBC (Bld) 4.8 % Normal A [facility] Comment on above: Order Comment: Speci men Type: BLOOD SPECIMEN Ordering Facility: [facility] Address: [address] [place] [address] Performed By: #### 5 7021-8 #### [facility] CLIA [id number] [address] [place] Neutrophils (Bld) [#/Vol] 5.93 10*3/uL Normal 1.45-7.50 [facility] Comment on above: Order Comment: Speci men Type: BLOOD SPECIMEN Ordering Facility: [facility] Address: [address] [place] [address] Performed By: #### 5 7021-8 #### [facility] CLIA [id number] [address] [place] Neutrophils/100 WBC (Bld) 83.3 % Normal [facility] Comment on above: Order Comment: Speci men Type: BLOOD SPECIMEN Ordering Facility: [facility] Address: [address] [place] [address] Performed By: #### 5 7021-8 #### [facility] CLIA [id number] [address] [place] Nucleated RBC (Bld) [#/Vol] 10*3/uL Normal <0.01 [facility] Comment on above: Order Comment: Speci men Type: BLOOD SPECIMEN Ordering Facility: [facility] Address: [address] [place] [address] Performed By: #### 5 7021-8 #### [facility] CLIA [id number] [address] [place] Nucleated RBC/100 WBC (Bld) [Ratio] 0.0 /100 WBC Normal [facility] Comment on above: Order Comment: Speci men Type: BLOOD SPECIMEN Ordering Facility: [facility] Address: [address] [place] [address] Performed By: #### 5 7021-8 #### [facility] CLIA [id number] [address] [place] Platelet mean volume (Bld) [Entitic vol] 9.1 fL Normal 9.0-12.7 [facility] Comment on above: Order Comment: Speci men Type: BLOOD SPECIMEN Ordering Facility: [facility] Address: [address] [place] [address] Performed By: #### 5 7021-8 #### [facility] CLIA [id number] [address] [place] Platelets (Bld) [#/Vol] 118 10*3/uL Low 150-400 [facility] Comment on above: Order Comment: Speci men Type: BLOOD SPECIMEN Ordering Facility: [facility] Address: [address] [place] [address] Performed By: #### 5 7021-8 #### [facility] CLIA [id number] [address] [place] [address] [place] RBC (Bld) [#/Vol] 3.39 10*6/uL Low 4.20-6.00 [facility] Comment on above: Order Comment: Speci men Type: BLOOD SPECIMEN Ordering Facility: [facility] Address: [address] [place] [address] Performed By: #### 5 7021-8 #### [facility] CLIA [id number] [address] [place] WBC (Bld) [#/Vol] 7.12 10*3/uL Normal 3.70-11.00 [facility] Comment on above: Order Comment: Speci men Type: BLOOD SPECIMEN Ordering Facility: [facility] Address: [place] [address] Performed By: #### 5 7021-8 #### [facility] CLIA [id number] [address] CONSULTon 03-01-2023 CONSULT HNO ID: [id number] Author: Aleyda Wright MD Service: Nephrology Author Type: Physician Type: Consults Filed: 03/01/2023 11:01 AM Note Text: [facility] ([facility]) Nephrology Consult HANDP March 01, 2023 10:47 AM Patient: Franklin Burton [id number]* Date of Admit: 02/28/2023 LOS: 0 Referring physician: Chidi Frazier MD Outpatient Armored Car Guard: Tara Reason for Consult Peritonitis Chief complaint: abdominal pain Assessment AND Plan Franklin Burton is a 77 year old male with a past medical history of ESRD on PD, GPA, DM type 2, HTN, HFrEF, BPH, GERD, ROYAL, OA, obesity, RLS, who was transferred from [facility] with peritonitis. Recommendations: 1.ESRD on PD: -per sign out there was no cell count or culture available. Will see if patient is able to tolerate a dwell of 500 ml of 1.5% solution over 4 hours to obtain cell count and culture, though it appears he has been on antibiotics for a few days. -he is on ceftriaxone and vancomycin by levels. -please recheck vanc level as he had hemodialysis yesterday. -will add nystatin for fungal prophylaxis while on broad spectrum antibiotics -last BUN was 22 and serum creatinine was 2.7. Patient reports he had regular HD yesterday. States he has been very sore on his abdomen and not sure if he can tolerate a dwell. Will see how he does today with dwell, with tentative plan for HD on Friday. 2. Electrolytes/acid-bas e: last Na was 134, K 4.2, bicarb 22, stable. 3. Anemia: last Hgb was 10.6, he is on mircera per protocol. 4. QAMAR: last Ca was 8.7, will add a phosphorus level. He is not on any binder at this time. 5.BP/volume status: he is on metoprolol 12.5 mg bid. Last BP was 126/77. 6-ID: he is on ceftriaxone and vancomycin per pharmacy dosing. 7-Syncope: work up per primary team. Thank you for allowing us to participate in the care of this patient. Please call with any questions Signed: Aleyda Martinez MD [facility] ([facility]) Personal Pager: [phone] Office Number: [phone] Office March 01, 2023 10:47 AM History of Present Illness Franklin Burton is a 77 year old male with a past medical history of ESRD on PD, GPA, DM type 2, HTN, HFrEF, BPH, GERD, ROYAL, OA, obesity, RLS, who was transferred from [facility] with peritonitis. Per patient, he was previously on HD since July 2022 and was transitioned to PD about 1 month ago. This last Friday he noticed it was painful when he started PD. He reports [facility], and he didn't know how he got there. He reports he was started on treatment for presumptive peritonitis. Per ict educator, PD cell counts and culture were not done. He underwent dialysis through his [facility] yesterday. Patient reports his abdomen is still very sore. He denied any fever, chills, nausea, vomiting, SOB. He reports last BM was 2 days ago. He makes a lot of urine. He is no longer having LE edema. Review of Systems Significant as listed in HPI otherwise 10 point ROS negative Past Medical History As above. Past Surgical History PAST SURGICAL HISTORY Procedure Laterality Date KNEE ARTHROSCOPY/SURGERY [address] knee-[address] Family History FAMILY HISTORY Problem Relation Age of Onset Prostate Cancer Father Heart Mother Diabetes Maternal Grandmother Diabetes Paternal Grandmother Social History Social History Tobacco Use Smoking status: Former Types: Cigarettes Quit date: 05/19/1981 Years since quittin.8 Substance Use Topics Alcohol use: No Drug use: No Medications Home Meds: reviewed. Inpatient Meds: Current Facility-Administered Medications Medication Dose Route Frequency cefTRIAXone iv piggyback 1 g in dextrose (iso-osmotic) 50 mL (ROCEPHIN) 1 g INTRAVENOUS q 24 H vancomycin dosing and monitoring per pharmacy OTHER As Directed NaCl 0.9% iv flush bag 20 mL INTRAVENOUS PRN metoprolol tartrate (short acting) 12.5 mg tab(s) (LOPRESSOR) 12.5 mg ORAL BID gabapentin 100 mg cap(s) (NEURONTIN) 100 mg ORAL q 12 H heparin 5,000 Units injection 5,000 Units SUBCUTANEOUS q 12 H HYDROmorphone 0.5 mg injection (DILAUDID) 0.5 mg INTRAVENOUS q 3 H PRN HYDROmorphone 2 mg tab(s) (DILAUDID) 2 mg ORAL q 3 H PRN senna 17.2 mg tab(s) (SENOKOT) 17.2 mg ORAL DAILY polyethylene glycol 3350 17 g packet 17 g ORAL DAILY ALLERGIES Allergen Reactions Aspirin Other: See Comments Kidney issues Seasonal Allergies Other: See Comments Sneezing, itchy and watery eyes Vital Signs 02/28/238 02/28/23 2312 03/01/23 0928 BP: 138/76 126/77 Pulse: 108 106 Resp: 18 18 Temp: 36.7 ?C (98.1 ?F) 37.1 ?C (98.8 ?F) TempSrc: Oral Oral SpO2: 97% 96% Weight: 96.5 kg (212 lb 11.2 oz) Height: 172.7 cm (5' 8") BP 126/77 Pulse 106 Temp 37.1 ?C (98.8 ?F) (Oral) Resp 18 Ht 172.7 cm (5' 8") Wt 96.5 kg (212 lb 11.2 oz (more content not included)... Normal [facility] CONSULT PROGon 03-01-2023 CONSULT PROG HNO ID: [id number] Author: Beau Day RPh Service: Pharmacy Author Type: Pharmacist Type: Consult Progress Note Filed: 03/01/2023 11:24 AM Note Text: PHARMACY VANCOMYCIN DOSING NOTE Patient Name: Franklin Burton Admission Date: 02/28/2023 Date of Consult: 03/01/2023 Time of Consult: 11:21 AM Indication: Intra-abdominal infection Goal Range: 10-20 mcg/mL RECOMMENDATIONS/PLAN: Pharmacy consulted for vancomycin dosing for Franklin Burton, a 77 year old male. 1. Patient is currently ordered Vancomycin dosed by level. Today is day 3 of therapy. 2. The most recent vancomycin level was 8.8 mcg/mL drawn at 946 on 03/01. This is a ~45 hour level on the 3 day of therapy. 3. Vancomycin level is below or within therapeutic goal. Will re dose vancomycin 1.5 g x 1 dose today. 4. The next vancomycin level has been ordered for 03/03 (Completed) We will follow patient renal function, vancomycin levels and doses with you during the course of therapy. Additional recommendations will appear in follow up notes. If you have [place] [phone]. Age: [age] year old Allergies: ALLERGIES Allergen Reactions Aspirin Other: See Comments Kidney issues Seasonal Allergies Other: See Comments Sneezing, itchy and watery eyes Last 3 Encounter Wt Readings: Date: Wt: 02/28/2023 96.5 kg (212 lb 11.2 oz) 12/01/2022 96.6 kg (213 lb) 12/03/2013 88 kg (194 lb) Last 1 Encounter Ht Readings: Date: Ht: 02/28/2023 172.7 cm (5' 8") Peritoneal hemodialysis Temp (24hrs), Av.9 ?C (98.5 ?F), Min:36.7 ?C (98.1 ?F), Max:37.1 ?C (98.8 ?F) - Current Temp: 37.1 ?C (98.8 ?F) Labs BUN (mg/dL) Date Value 03/01/2023 22 06/03/2014 63 (H) 12/28/2012 12 Creatinine (mg/dL) Date Value 03/01/2023 2.71 (H) 03/01/2023 2.71 (H) 06/03/2014 2.88 (H) 06/03/2014 36.54 (H) WBC (k/uL) Date Value 03/01/2023 7.12 12/28/2012 9.76 Vancomycin Levels: Vancomycin (ug/mL) Date/Time Value 03/01/2023 0946 8.8 (L) Beau Day [facility] Normal [facility] CONSULT PROG HNO ID: [id number] Author: Alyssa Esposito RPh Service: Pharmacy Author Type: Pharmacist Type: Consult Progress Note Filed: 03/01/2023 3:13 AM Note Text: PHARMACY VANCOMYCIN DOSING NOTE Patient Name: Franklin Burton Admission Date: 02/28/2023 Date of Consult: 02/28/2023 Time of Consult: 11:46 PM Indication: Intra-abdominal infection Goal Range: 10-20 mcg/mL RECOMMENDATIONS/PLAN: Pharmacy consulted for vancomycin dosing for Franklin Burton, a 77 year old male. 1. Patient is currently ordered Vancomycin 1 g IV q12h. Today is day 2 of therapy. The patient is a transfer from [facility] where chart documentation states patient was started on vancomycin 02/27/2023. (Confirmed the patient received a dose of vancomycin 1.5 grams IV x ONCE 02/27/2023 @ 1132 in [place].) 2. No vancomycin level has been drawn for this dosing regimen. 3. The patient receives peritoneal dialysis. We will discontinue scheduled regimen at this time and order level as appropriate. 4. The next vancomycin level has been ordered for 03/01/2023 @ 1000 48 hours post dose (Completed) We will follow patient renal function, vancomycin levels and doses with you during the course of therapy. Additional recommendations will appear in follow up notes. If you have any questions[place] [phone]. Age: [age] year old Allergies: ALLERGIES Allergen Reactions Aspirin Other: See Comments Kidney issues Seasonal Allergies Other: See Comments Sneezing, itchy and watery eyes Last 3 Encounter Wt Readings: Date: Wt: 02/28/2023 96.5 kg (212 lb 11.2 oz) 12/01/2022 96.6 kg (213 lb) 12/03/2013 88 kg (194 lb) Last 1 Encounter Ht Readings: Date: Ht: 02/28/2023 172.7 cm (5' 8") Peritoneal hemodialysis Temp (24hrs), Av.7 ?C (98.1 ?F), Min:36.7 ?C (98.1 ?F), Max:36.7 ?C (98.1 ?F) - Current Temp: 36.7 ?C (98.1 ?F) Labs BUN (mg/dL) Date Value 06/03/2014 63 (H) 12/28/2012 12 Creatinine (mg/dL) Date Value 06/03/2014 2.88 (H) 06/03/2014 36.54 (H) 12/28/2012 0.95 WBC (k/uL) Date Value 12/28/2012 9.76 Vancomycin Levels: No results found for: JOSH Esposito, D., [facility] Normal [facility] CREATININE BLDon 03-01-2023 Creatinine [Mass/Vol] 2.71 mg/dL High 0.73-1.22 [facility] Comment on above: Order Comment: Speci men Type: BLOOD SPECIMEN Ordering Facility: [facility] Address: [address] [place] [address] Performed By: #### 5 7021-8 #### [facility] CLIA [id number] [address] [place] [address] Creatinine and Glomerular filtration rate.predicted panel (S/P/Bld) 24 mL/min/1.73m??? Low >=60 [facility] Comment on above: Order Comment: Speci men Type: BLOOD SPECIMEN Ordering Facility: [facility] Address: [address] [place] [address] Result Comment: Zoë mated Glomerular Filtration Rate (eGFR) is calculated using the 202 CKD-EPI creatinine equation. This equation utilizes serum creatinine, sex, and age as parameters. The creatinine assay has traceable calibration to isotope dilution-mass spectrometry. Refer to KDIGO guidelines for clinical interpretation. In patients with unstable renal function, e.g. those with acute kidney injury, the eGFR may not accurately reflect actual GFR. Estimated Glomerular Filtration Rate (eGFR) is calculated using the 2021 CKD-EPI creatinine equation. This equation utilizes serum creatinine, sex, and age as parameters. The creatinine assay has traceable calibration to isotope dilution-mass spectrometry. Refer to KDIGO guidelines for clinical interpretation. In patients with unstable renal function, e.g. those with acute kidney injury, the eGFR may not accurately reflect actual GFR. Performed By: #### 5 7021-8 #### [facility] CLIA [id number] [address] [place] [address] [place] Result Comment: Zoë mated Glomerular Filtration Rate (eGFR) is calculated using the 2020 CKD-EPI creatinine equation. This equation utilizes serum creatinine, sex, and age as parameters. The creatinine assay has traceable calibration to isotope dilution-mass spectrometry. Refer to KDIGO guidelines for clinical interpretation. In patients with unstable renal function, e.g. those with acute kidney injury, the eGFR may not accurately reflect actual GFR. Comprehensive metabolic 2000 panelon 03-01-2023 Albumin [Mass/Vol] 3.1 g/dL Low 3.9-4.9 [facility] Comment on above: Order Comment: Speci men Type: BLOOD SPECIMEN Ordering Facility: [facility] Address: [address] [place] [address] Performed By: #### 5 7021-8 #### [facility] CLIA [id number] [address] [place] [address] ALP [Catalytic activity/Vol] 125 U/L High 38-113 [facility] Comment on above: Order Comment: Mykei men Type: BLOOD SPECIMEN Ordering Facility: [facility] Address: [address] [place] [address] Performed By: #### 5 7021-8 #### [facility] CLIA [id number] [address] [place] [address] ALT With P-5'-P [Catalytic activity/Vol] 14 U/L Normal 10-54 [facility] Comment on above: Order Comment: Speci men Type: BLOOD SPECIMEN Ordering Facility: [facility] Address: [address] [place] [address] Performed By: #### 5 7021-8 #### [facility] CLIA [id number] [address] [place] [address] Anion gap [Moles/Vol] 9 mmol/L Normal 9-18 [facility] Comment on above: Order Comment: Mykei men Type: BLOOD SPECIMEN Ordering Facility: [facility] Address: [address] [place] [address] Performed By: #### 5 7021-8 #### [facility] CLIA [id number] [address] [place] [address] [place] AST With P-5'-P [Catalytic activity/Vol] 19 U/L Normal 14-40 [facility] Comment on above: Order Comment: Speci men Type: BLOOD SPECIMEN Ordering Facility: [facility] Address: [address] [place] [address] Performed By: #### 5 7021-8 #### [facility] CLIA [id number] [address] [place] Bilirubin [Mass/Vol] 0.4 mg/dL Normal 0.2-1.3 [facility] Comment on above: Order Comment: Speci men Type: BLOOD SPECIMEN Ordering Facility: [facility] Address: [address] [place] [address] Performed By: #### 5 7021-8 #### [facility] CLIA [id number] [address] [place] Calcium [Mass/Vol] 8.7 mg/dL Normal 8.5-10.2 [facility] Comment on above: Order Comment: Speci men Type: BLOOD SPECIMEN Ordering Facility: [facility] Address: [address] [place] [address] Performed By: #### 5 7021-8 #### [facility] CLIA [id number] [address] [place] [address] [place] Chloride [Moles/Vol] 103 mmol/L Normal 97-105 [facility] Comment on above: Order Comment: Speci men Type: BLOOD SPECIMEN Ordering Facility: [facility] Address: [address] [place] [address] Performed By: #### 5 7021-8 #### [facility] CLIA [id number] [address] [place] [address] [place] CO2 [Moles/Vol] 22 mmol/L Normal 22-30 [facility] Comment on above: Order Comment: Speci men Type: BLOOD SPECIMEN Ordering Facility: [facility] Address: [address] [place] [address] Performed By: #### 5 7021-8 #### [facility] CLIA [id number] [address] [place] [address] [place] Glucose [Mass/Vol] 154 mg/dL High 74-99 [facility] Comment on above: Order Comment: Camilo redman Type: BLOOD SPECIMEN Ordering Facility: [facility] Address: [address] [place] [address] Result Comment: The [place] [employer] (ADA) provides guidance for cutoff values for fasting glucose and random glucose. The ADA defines fasting as no caloric intake for at least 8 hours. Fasting plasma glucose results between 100 to 125 mg/dL indicate increased risk for diabetes (prediabetes). Fasting plasma glucose results greater than or equal to 126 mg/dL meet the criteria for diagnosis of diabetes. In the absence of unequivocal hyperglycemia, results should be confirmed by repeat testing. In a patient with classic symptoms of hyperglycemia or hyperglycemic crisis, random plasma glucose results greater than or equal to 200 mg/dL meet the criteria for diagnosis of diabetes. Reference: Standards of Medical Care in Diabetes 2016, [place] [employer]. Diabetes Care. 2016.39(Suppl 1). Performed By: #### 5 7021-8 #### [facility] CLIA [id number] [address] [place] [address] [place] Potassium [Moles/Vol] 4.2 mmol/L Normal 3.7-5.1 [facility] Comment on above: Order Comment: Camilo redman Type: BLOOD SPECIMEN Ordering Facility: [facility] Address: [address] [place] [address] Performed By: #### 5 7021-8 #### [facility] CLIA [id number] [address] [place] [address] [place] Protein [Mass/Vol] 5.3 g/dL Low 6.3-8.0 [facility] Comment on above: Order Comment: Camilo redman Type: BLOOD SPECIMEN Ordering Facility: [facility] Address: [address] [place] [address] Performed By: #### 5 7021-8 #### [facility] CLIA [id number] [address] [place] [address] [place] Sodium [Moles/Vol] 134 mmol/L Low 136-144 [facility] Comment on above: Order Comment: Speci men Type: BLOOD SPECIMEN Ordering Facility: [facility] Address: [place] [address] Performed By: #### 5 7021-8 #### [facility] CLIA [id number] [address] Urea nitrogen [Mass/Vol] 22 mg/dL Normal 9-24 [facility] Comment on above: Order Comment: Speci men Type: BLOOD SPECIMEN Ordering Facility: [facility] Address: [place] [address] Performed By: #### 5 7021-8 #### [facility] CLIA [id number] [address] [facility] HISTORY PHYSICALon HISTORY PHYSICAL HNO ID: [id number] Author: Chidi Frazier MD Service: Hospital Medicine Author Type: Physician Type: HANDP Filed: 03/01/2023 2:21 PM Note Text: INTERNAL MEDICINE ADMISSION NOTE HISTORY AND PHYSICAL Patient Name: Franklin Burton Admission Date: 02/28/2023 Date of Evaluation: 03/01/2023 Time of Evaluation: 1417 Subjective CHIEF COMPLAINT: " Abdominal pain". 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 Patient noted worsening abdominal pain associated with PD dialysate infusion. Pain worse with movement. Afebrile. Patient denies sob, headache, N/V, diarrhea, or dysuria. REVIEW OF SYSTEMS: (since the onset of symptoms) All other systems reviewed and are negative. Please refer to the pertinent positives in the HPI. PAST MEDICAL HISTORY: No past medical history on file. PAST SURGICAL HISTORY: PAST SURGICAL HISTORY Procedure Laterality Date KNEE ARTHROSCOPY/SURGERY 1988 Left knee-St SOCIAL HISTORY: Social History Tobacco Use Smoking status: Former Types: Cigarettes Quit date: 05/19/1981 Years since quittin.8 Substance Use Topics Alcohol use: No Drug use: No FAMILY HISTORY: FAMILY HISTORY Problem Relation Age of Onset Prostate Cancer Father Heart Mother Diabetes Maternal Grandmother Diabetes Paternal Grandmother HOME MEDICATIONS: Current Facility-Administered Medications Medication Dose Route Frequency cefTRIAXone iv piggyback 1 g in dextrose (iso-osmotic) 50 mL (ROCEPHIN) 1 g INTRAVENOUS q 24 H gabapentin 100 mg cap(s) (NEURONTIN) 100 mg ORAL q 12 H heparin 5,000 Units injection 5,000 Units SUBCUTANEOUS q 12 H HYDROmorphone 0.5 mg injection (DILAUDID) 0.5 mg INTRAVENOUS q 3 H PRN HYDROmorphone 2 mg tab(s) (DILAUDID) 2 mg ORAL q 3 H PRN metoprolol tartrate (short acting) 12.5 mg tab(s) (LOPRESSOR) 12.5 mg ORAL BID NaCl 0.9% iv flush bag 20 mL INTRAVENOUS PRN nystatin 5 mL oral liquid (MYCOSTATIN) 5 mL ORAL QID peritoneal dialysis dextrose 1.5% low Ca 500 mL solution (DIANEAL) 500 mL INTRAPERITONEAL ONCE polyethylene glycol 3350 17 g packet 17 g ORAL DAILY senna 17.2 mg tab(s) (SENOKOT) 17.2 mg ORAL DAILY vancomycin dosing and monitoring per pharmacy OTHER As Directed ALLERGIES: ALLERGIES Allergen Reactions Aspirin Other: See Comments Kidney issues Seasonal Allergies Other: See Comments Sneezing, itchy and watery eyes Objective PHYSICAL EXAM: Vital Signs: BP 126/77 Pulse 106 Temp 37.1 ?C (98.8 ?F) (Oral) Resp 18 Ht 172.7 cm (5' 8") Wt 96.5 kg (212 lb 11.2 oz) SpO2 96% BMI 32.34 kg/m? Body mass index is 32.34 kg/m?. General: No acute distress Eyes: Sclera anicteric ENMT: MMM. No LAD. No JVD Pulm: CTAB CV: RRR, S1/2 audible, no murmur Abd: Soft, lower abdominal tenderness , non-distended. BS+. Peritoneal dialysis insertion site without warmth or erythema Ext: No edema. Atraumatic Neuro: AANDO DATA: LABORATORY TESTS: CBC: Recent Labs 03/01/23 0946 WBC 7.12 HB 10.6* PLT 118* MCV 95.3 NEUTP 83.3 ABSNEUT 5.93 LYMPHP 7.4 CHEM: Recent Labs 03/01/23 0946 NA 134* K 4.2 CA 8.7 P 1.9* ANION 9 CHLOR 103 CO2 22 GLUC 154* BUN 22 CREAT 2.71* 2.71* HEPATIC: Recent Labs 03/01/23 0946 ALT 14 AST 19 TBILI 0.4 ALKPHOS 125* ALB 3.1* TPROT 5.3* URINALYSIS:No results for input(s): "SPGR", "UBACTERIA", "LEUKEST", "SSA", "UWBC", "URBC", "UHB", "UPROT", "UGLUC", "UKET" in the last 168 hours. Invalid input(s): NITR COAG: No results for input(s): "APTT", "INR" in the last 168 hours. CARDIAC: No results for input(s): "CKMB", "CKMBP", "TROPT", "PBNP" in the last 168 hours. Lab Results Component Value Date/Time CULT No growth (<1,000 CFU/ml) 12/08/2012 12:50 PM RADIOLOGY: CT-Brain/Head without Contrast IMPORT Result Date: 02/28/2023 Images were obtained outside of [facility] CT-Abdomen/Pelvis W IV Cont ONLY IMPORT Result Date: 02/28/2023 Images were obtained outside of [facility] OT-Chest 1 View (Portable) IMPORT Result Date: 02/28/2023 Images were obtained outside of [facility] Assessment/Plan Peritonitis (HCC) (POA: Yes) ESRD (end stage renal disease) (HCC) (POA: Yes) Peritoneal dialysis catheter in situ (HCC) (POA: Yes) 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 (HCC) (POA: Yes) History of granulomatosis with polyangiitis (POA: Yes) Periumbilical abdominal pain (POA: Yes) Peripheral polyneuropathy (POA: Yes) ASSESSMENT: Franklin Burton is a 77 year old with PMH of HTN, peripheral neuropathy, ESRD due to h/o GPA (in remission) s/p laparoscopic peritoneal dialysis catheter placeme (more content not included)... Normal [facility] NURSING PROGon 03-01-2023 NURSING PROG HNO ID: [id number] Author: Maegan Veliz, RN Service: Nursing Author Type: Registered Nurse Type: Nursing Progress Note Filed: 03/01/2023 7:47 PM Note Text: Other: sound paged for sepsis alert. HR 124 Temp 39.3 1945 Repeated temp 38.2 oral and 38.1 oral HR 118 Normal [facility] Phosphate SerPl-mCncon 03-01 Phosphate [Mass/Vol] 1.9 mg/dL Low 2.7-4.8 [facility] Comment on above: Order Comment: Speci men Type: BLOOD SPECIMEN Ordering Facility: [facility] Address: [address] [place] [address] Performed By: #### 5 7021-8 #### [facility] CLIA [id number] [address] Vancomycin random [Mass/Vol] on 03-01-2023 Vancomycin [Mass/Vol] 8.8 ug/mL Low 10.0-20.0 [facility] Comment on above: Order Comment: Speci men Type: BLOOD SPECIMEN Ordering Facility: [facility] Address: [address] [place] [address] Result Comment: Refe rence ranges and high/low indicator flags are provided as general guidelines only. The treating physician must determine appropriate target levels/dosing based on the specific clinical situation. Performed By: #### 2 4362-6 #### [facility] CLIA [id number] [address] [place] XR ABDOMEN 1V SUPINEon 03-01 XR ABDOMEN 1V SUPINE * * *Final Report* * * DATE OF EXAM: Mar 01 2023 7:55PM [id number] - XR ABDOMEN 1V SUPINE / PROCEDURE REASON: Evaluate tube, line or lead position * * * * Physician Interpretation * * * * Supine view of the abdomen, 03/01/2023. Reason for examination: Evaluate peritoneal dialysis catheter position. COMPARISON: CT of the abdomen and pelvis dated February 25, 2023. FINDINGS: The patient's peritoneal dialysis catheter projects over the pelvis with the internal portion coiled over the mid pelvic region. Positioning is likely within normal limits. No obvious catheter discontinuity is appreciated. There is mild gastric distention. Gas is noted within nondistended small bowel segments and colonic segments. 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 There is a partially visualized right hip arthroplasty. IMPRESSION: Grossly intact peritoneal dialysis catheter which appears to be within normal limits in terms of positioning. Mission Commander: KRISS Transcribe Date/Time: Mar 02 2023 10:58A Dictated by : DIMITRI HERNANDEZ MD This examination was interpreted and the report reviewed and electronically signed by: DIMITRI HERNANDEZ MD on Mar 02 2023 11:02AM EST [id number] Normal [facility] Absolute lymphocyte countOrd ered By: Chey Paulo on 02-28-2023 Lymphocytes Auto (Unsp spec) [#/Vol] 0.44 10*3/uL 0.83-4.51 [place] Basophil percentageOrdered B y: Chey Bates on 02-28-2023 Basophil percentage 2.1 mg/dL 2.5-4.9 [facility] Basophils/100 WBC (Bld) 0.5 % 0-1 [facility] Bilirubin [Mass/Vol] 0.70 mg/dL 0.20-1.00 [facility] Comment on above: For patients on eltr ombopag therapy, use of Dimension [place] TBIL is not recommended. Chloride [Moles/Vol] 106 mmol/L 98-107 [facility] Eosinophils/100 WBC (Bld) 1.8 % 0-5 [place] Glucose [Mass/Vol] 100 mg/dL 74-106 [facility] Comment on above: Fasting Glucose resu lt from 100 to 125 mg/dL suggests IMPAIRED HOMEOSTASIS per A.D.A. criteria. Neutrophils (Bld) [#/Vol] 5.5 10*3/uL 2.0-7.7 [place] Neutrophils/100 WBC (Bld) 84.4 % 47-70 [place] Potassium [Moles/Vol] 4.7 mmol/L 3.5-5.1 [place] Protein [Mass/Vol] 5.3 g/dL 6.4-8.2 [facility] Sodium [Moles/Vol] 138 mmol/L 136-145 [facility] WBC (Bld) [#/Vol] 6.5 10*3/uL 4.4-11.0 [facility] Blood erythrocytes count (nu mber/volume)Ordered By: Chey Bates on 02-28-2023 RBC (Bld) [#/Vol] 3.50 10*6/uL 4.6-6.2 [facility] [facility] Blood hemoglobin measurement (mass/volume)Ordered By: Chey Bates on 02-28-2023 Hemoglobin (Bld) [Mass/Vol] 11.2 g/dL 13.0-16.5 [place] Blood lymphocytes/100 leukoc ytesOrdered By: Chey Bates on 02-28-2023 Lymphocytes/100 WBC (Bld) 6.8 % 19-41 [place] Blood manual differential co mment interpretation (narrative result)Ordered By: Chey Bates on 02-28-2023 Manual differential comment Yunior (Bld) [Interp] SCANNED [place] Comment on above: LYMPHOPENIA NOTED Blood monocytes/100 leukocyt esOrdered By: Chey Bates on 02-28-2023 Monocytes/100 WBC (Bld) 6.2 % 0-[address] [facility] Blood platelet mean volumeOr dered By: Chey Bates on 02-28-2023 Platelet mean volume (Bld) [Entitic vol] 9.4 fL 6.2-12.0 [place] Determination of erythrocyte mean corpuscular volume (MCV)Ordered By: Chey Bates on 02-28-2023 MCV (RBC) [Entitic vol] 96.9 fL 80-[address] [facility] Hematocrit Auto (Bld) [Volum e fraction]Ordered By: Chey Bates on 02-28-2023 Hematocrit (Bld) [Volume fraction] 33.9 % 40-54 [place] [facility] - Chemistry and C hemistry - challengeOrdered By: Chey Bates on 02-28-2023 ALP [Catalytic activity/Vol] 115 U/L 45-117 [place] ALT [Catalytic activity/Vol] 21 U/L 16-61 [place] CO2 [Moles/Vol] 23.0 mmol/L 21.0-32.0 [place] Globulin (S) [Mass/Vol] 2.9 g/dL 2.2-4.[address] [facility] Magnesium [Mass/Vol] 2.4 mg/dL 1.6-2.6 [facility] Urea nitrogen/Creatinine [Mass ratio] 8.7 mg/mg 10-20 [facility] - Hematology and Cell countsOrdered By: Chey Bates on 02-28-2023 Erythrocyte distribution width (RBC) [Entitic vol] 49.6 fL 35.1-43.9 [facility] Erythrocyte distribution width (RBC) [Ratio] 13.8 % 11.6-14.6 [facility] Immature granulocytes/100 WBC (Bld) 0.300 % 0.0-0.9 [facility] Comment on above: IG% - Immature Granu locytes (promyelocytes, myelocytes and metamyelocytes) > 1% indicates that a LEFT SHIFT is Present. MCH (RBC) [Entitic mass] 32.0 pg 27.0-32.0 [facility] Nucleated RBC/100 WBC (Bld) [Ratio] 0 % 0-5 [facility] MCHC Auto (RBC) [Mass/Vol]Or dered By: Chey Bates on 02-28-2023 MCHC (RBC) [Mass/Vol] 33.0 g/dL 32-36 [facility] No Panel InformationOrdered By: Chey Bates on 02-28-2023 Estimated Creatinine Clearance Calc 20.27 ml/min [facility] Estimated GFR (MDRD) Amer 26 mL/min >60 [facility] Comment on above: GFR Calc Estimated GFR (MDRD) Non-Af Amer 22 mL/min >60 [facility] Comment on above: Non- GFR Calc Platelets bldOrdered By: Tc Bates on 02-28-2023 Platelets (Bld) [#/Vol] 113 10*3/uL 150-450 [facility] Serum or plasma albumin satish urement (mass/volume)Ordered By: Chey Bates on 02-28-2023 Albumin [Mass/Vol] 2.4 g/dL 3.2-5.0 [facility] Serum or plasma albumin/glob ulin mass ratioOrdered By: Chey Bates on 02-28-2023 Albumin/Globulin [Mass ratio] 0.8 {ratio} 0.9-2.4 [facility] Serum or plasma calcium satish urement (mass/volume)Ordered By: Chey Bates on 02-28-2023 Calcium [Mass/Vol] 8.4 mg/dL 8.5-10.1 [facility] Serum or plasma creatinine m easurement (mass/volume)Ordered By: Chey Bates on 02-28-2023 Creatinine [Mass/Vol] 3.00 mg/dL 0.70-1.30 [facility] Comment on above: The validity of the calculated GFR & GFRAA in patients over 70 years has not been determined. Clinical correlation is essential. Serum or plasma urea nitroge n measurement (mass/volume)Ordered By: Chey Bates on 02-28-2023 Urea nitrogen [Mass/Vol] 26 mg/dL 7-18 [facility] Thin prep Papanicolaou smear with manual screeningOrdered By: Chey Bates on 02-28-2023 Thin prep Papanicolaou smear with manual screening 17 U/L 15-37 [facility] Thin prep Papanicolaou smear with manual screening 9 5-15 [facility] Absolute lymphocyte countOrd ered By: Tha Leblanc on 02-27-2023 Lymphocytes Auto (Unsp spec) [#/Vol] 0.34 10*3/uL 0.83-4.51 [facility] Anaerobic cultureOrdered By: Tha Leblanc on 02-27-2023 Bacteria identified Anaer cx Nom (Unsp spec) No growth in 5 days. [facility] Bacteria identified Anaer cx Nom (Unsp spec) No growth in 5 days. [facility] Bacteria identified Cx Nom ( Body fld)Ordered By: Tha Leblanc on 02-27-2023 Body Fluid Culture Stenotrophomonas maltophilia [facility] Basophil percentageOrdered B y: Tha Leblanc on 02-27-2023 Lactate [Moles/Vol] 0.9 mmol/L 0.4-2.0 [facility] Basophil percentage 25-50 SEEN /hpf 0-5 [facility] Basophils/100 WBC (Bld) 0.3 % 0-[address] [facility] Bilirubin [Mass/Vol] 0.70 mg/dL 0.20-1.00 [facility] Comment on above: For patients on eltr ombopag therapy, use of Dimension [place] TBIL is not recommended. Chloride [Moles/Vol] 104 mmol/L 98-107 [facility] Eosinophils/100 WBC (Bld) 0.6 % 0-5 [facility] Glucose [Mass/Vol] 140 mg/dL 74-106 [facility] Comment on above: Fasting Glucose resu lt greater than or equal to 126 mg/dL suggests DIABETES MELLITUS per A.D.A. criteria. Neutrophils (Bld) [#/Vol] 6.1 10*3/uL 2.0-7.7 [facility] Neutrophils/100 WBC (Bld) 89.2 % 47-70 [facility] Potassium [Moles/Vol] 4.2 mmol/L 3.5-5.1 [facility] Protein [Mass/Vol] 6.1 g/dL 6.4-8.2 [facility] Sodium [Moles/Vol] 134 mmol/L 136-145 [facility] WBC (Bld) [#/Vol] 6.9 10*3/uL 4.4-11.0 [facility] Bilirubin Test strip Ql (U)O rdered By: Tha Leblanc on 02-27-2023 Bilirubin Ql (U) Negative Negative [facility] Blood erythrocytes count (nu mber/volume)Ordered By: Tha Leblanc on 02-27-2023 RBC (Bld) [#/Vol] 4.04 10*6/uL 4.6-6.2 [facility] Blood hemoglobin measurement (mass/volume)Ordered By: Tha Leblanc on 02-27-2023 Hemoglobin (Bld) [Mass/Vol] 12.6 g/dL 13.0-16.5 [facility] Blood lymphocytes/100 leukoc ytesOrdered By: Tha Leblanc on 02-27-2023 Lymphocytes/100 WBC (Bld) 4.9 % 19-41 [facility] Blood manual differential co mment interpretation (narrative result)Ordered By: Tha Leblanc on 02-27-2023 Manual differential comment Yunior (Bld) [Interp] SCANNED [facility] Comment on above: LYMPHOPENIA NOTED Blood monocytes/100 leukocyt esOrdered By: Tha Leblanc on 02-27-2023 Monocytes/100 WBC (Bld) 4.6 % 0-[address] [facility] Blood platelet mean volumeOr dered By: Tha Leblanc on 02-27-2023 Platelet mean volume (Bld) [Entitic vol] 9.5 fL 6.2-12.0 [facility] Body fluid appearanceOrdered By: Tha Leblanc on 02-27-2023 Appearance (Body fld) SL CLDY [facility] Body fluid color determinati onOrdered By: Tha Leblanc on 02-27-2023 Color (Body fld) COLORLESS [facility] Body fluid leukocytes count (number/volume)Ordered By: Tha Leblanc on 02-27-2023 WBC (Body fld) [#/Vol] 1.144 10*3/uL [facility] Culture, urineOrdered By: rTuong Leblanc on 02-27-2023 Bacteria identified Cx Nom (U) Meth. resistant Staph. aureus [facility] Bacteria identified Cx Nom (U) Meth. resistant Staph. aureus [facility] Determination of erythrocyte mean corpuscular volume (MCV)Ordered By: Tha Leblanc on 02-27-2023 MCV (RBC) [Entitic vol] 95.8 fL 80-[address] [facility] Gram stain for investigation of transfusion reactionOrdered By: Tha Leblanc on 02-27-2023 Microscopic observation Gram stain Nom (Unsp spec) [facility] Microscopic observation Gram stain Nom (Unsp spec) [facility] Hematocrit Auto (Bld) [Volum e fraction]Ordered By: Tha Leblanc on 02-27-2023 Hematocrit (Bld) [Volume fraction] 38.7 % 40-54 [facility] INR in Blood by Coagulation assayOrdered By: Tha Leblanc on 02-27-2023 INR Coag (Bld) [Relative time] 1.1 {INR} [facility] Ketones Test strip Ql (U)Ord ered By: Tha Leblanc on 02-27-2023 Ketones Ql (U) Negative Negative [facility] - Chemistry and C hemistry - challengeOrdered By: Tha Leblanc on 02-27-2023 ALP [Catalytic activity/Vol] 136 U/L 45-117 [facility] ALT [Catalytic activity/Vol] 27 U/L 16-61 [facility] CO2 [Moles/Vol] 27.0 mmol/L 21.0-32.0 [facility] Globulin (S) [Mass/Vol] 3.1 g/dL 2.2-4.[address] [facility] Lipase [Catalytic activity/Vol] 14 U/L 13-75 [facility] Comment on above: Please note:LIPASE r evised reference range effective 22. New Lipase methodology. Expected to produce lower values than the previous assay method. NEW Reference Range: 13 - 75 U/L Urea nitrogen/Creatinine [Mass ratio] 8.5 mg/mg 10-20 [facility] - CoagulationOrde red By: Tha Leblanc on 02-27-2023 aPTT Coag (Bld) [Time] 31.2 s 24.1-36.2 [facility] Coag (PPP) [Time] 14.2 s 11.7-14.9 [facility] - Hematology and Cell countsOrdered By: Tha Leblanc on 02-27-2023 Erythrocyte distribution width (RBC) [Entitic vol] 48.0 fL 35.1-43.9 [facility] Erythrocyte distribution width (RBC) [Ratio] 13.5 % 11.6-14.6 [facility] Immature granulocytes/100 WBC (Bld) 0.400 % 0.0-0.9 [facility] Comment on above: IG% - Immature Granu locytes (promyelocytes, myelocytes and metamyelocytes) > 1% indicates that a LEFT SHIFT is Present. MCH (RBC) [Entitic mass] 31.2 pg 27.0-32.0 [facility] Nucleated RBC/100 WBC (Bld) [Ratio] 0 % 0-5 [facility] - Microbiology an d Antimicrobial susceptibilityOrdered By: Tha Leblanc on 02-27-2023 Bacteria identified Cx Nom (Bld) No growth in 5 days. [facility] Bacteria identified Cx Nom (Bld) No growth in 5 days. [facility] MCHC Auto (RBC) [Mass/Vol]Or dered By: Tha Leblanc on 02-27-2023 MCHC (RBC) [Mass/Vol] 32.6 g/dL 32-36 [facility] Mononuclear cells Auto (Body fld) [#/Vol]Ordered By: Tha Leblanc on 02-27-2023 Mononuclear cells (Body fld) [#/Vol] 0.379 10*3/uL [facility] Mucus LM Ql (Urine sed)Order ed By: Tha Leblanc on 02-27-2023 Mucus Ql (Urine sed) 0 SEEN /hpf [facility] Nitrite Test strip Ql (U)Ord ered By: Tha Leblanc on 02-27-2023 Nitrite Ql (U) Negative Negative [facility] No Panel InformationOrdered By: Tha Leblanc on 02-27-2023 Body Fluid Comment 2 SEE COMMENT [facility] Comment on above: .INTERPRETATION OF R ESULTS: Differentiation of transudate and exudate fluid: TRANSUDATE EXUDATE Color- Clear,straw colored Clear,turbid,bloody,purulent RBCs- Usually none to few Often present in high numbers WBCs- Usually none to few Often present in high numbers DIFF Few lymphocytes or Lymphocytes, neutrophils, andCount- mesothelial cells. polymorphonuclear cells . Body Fluid Mononuclear WBCs (%) 33.1 % [facility] Body Fluid Pathologist Comment Reviewed [facility] Comment on above: Previous reported re sult: May follow Edited by: BRIAN on 02/28/23:1319Abundant bacteria present.Clinical correlation necessary.Joss Shaw D.O. 02/28/23 AMENDED REPORT 02/28/23 1319 PATH COMM/BF previously reported as: May follow Body Fluid Polynuclear WBCs (#) 0.765 10^3/uL [facility] Body Fluid Polynuclear WBCs (%) 66.9 % [facility] Body Fluid RBC < 0 /mm3 [facility] Estimated Creatinine Clearance Calc 18.48 ml/min [facility] Estimated GFR (MDRD) Amer 25 mL/min >60 [facility] Comment on above: GFR Calc Estimated GFR (MDRD) Non-Af Amer 20 mL/min >60 [facility] Comment on above: Non- GFR Calc Troponin I High Sensitivity 18 pg/mL 3.0-78.0 [facility] Comment on above: Please Note: New Margareth t Units and Gender Specific Reference Ranges. For more information see Policy Stat Procedure [place] High Sensitivity Troponin (TNIH) and attachments. Platelets bldOrdered By: Dipesh Leblanc on 02-27-2023 Platelets (Bld) [#/Vol] 128 10*3/uL 150-450 [facility] Protein Test strip Ql (U)Ord ered By: Tha Leblanc on 02-27-2023 Protein Ql (U) 30 mg/dl Negative [facility] Serum or plasma albumin satish urement (mass/volume)Ordered By: Tha Leblanc on 02-27-2023 Albumin [Mass/Vol] 3.0 g/dL 3.2-5.0 [facility] Serum or plasma albumin/glob ulin mass ratioOrdered By: Tha Leblanc on 02-27-2023 Albumin/Globulin [Mass ratio] 1.0 {ratio} 0.9-2.4 [facility] Serum or plasma calcium satish urement (mass/volume)Ordered By: Tha Leblanc on 02-27-2023 Calcium [Mass/Vol] 8.8 mg/dL 8.5-10.1 [facility] Serum or plasma creatinine m easurement (mass/volume)Ordered By: Tha Leblanc on 02-27-2023 Creatinine [Mass/Vol] 3.18 mg/dL 0.70-1.30 [facility] Comment on above: The validity of the calculated GFR & GFRAA in patients over 70 years has not been determined. Clinical correlation is essential. Serum or plasma urea nitroge n measurement (mass/volume)Ordered By: Tha Leblanc on 02-27-2023 Urea nitrogen [Mass/Vol] 27 mg/dL 7-18 [facility] Specimen source identificati on of body fluidOrdered By: Tha Leblanc on 02-27-2023 Specimen source Nom (Body fld) PERITONEAL FLUID [facility] Squamous epithelial cells de tection in urine sediment by light microscopyOrdered By: Tha Leblanc on 02-27-2023 Epithelial cells.squamous LM Ql (Urine sed) 0 SEEN /hpf 0-5 [facility] Thin prep Papanicolaou smear with manual screeningOrdered By: Tha Leblanc on 02-27-2023 Thin prep Papanicolaou smear with manual screening 19 U/L 15-37 [facility] Thin prep Papanicolaou smear with manual screening 3 5-15 [facility] Total cell countOrdered By: Tha Leblanc on 02-27-2023 Cells counted Molgen (Bld/Tiss) [#] 1.190 10^3/ul [facility] Comment on above: This is the Total Nu mber of Nucleated Cell Types in the Body Fluid. Urine blood detectionOrdered By: Tha Leblanc on 02-27-2023 RBC Ql (U) 25 /ul Negative [facility] RBC Ql (U) 0-5 SEEN /hpf 0-5 [facility] Urine clarityOrdered By: Dipesh Leblanc on 02-27-2023 Clarity (U) Clear Clear [facility] Urine color determinationOrd ered By: Tha Leblanc on 02-27-2023 Color (U) Yellow Yellow [facility] Urine glucose detectionOrder ed By: Tha Leblanc on 02-27-2023 Glucose Ql (U) Normal mg/dl Normal [facility] Urine leukocyte esterase det ection by dipstickOrdered By: Tha Leblanc on 02-27-2023 Leukocyte esterase Test strip Ql (U) 500 /ul Negative [facility] Urine pHOrdered By: Tha Leblanc on 02-27-2023 pH (U) 7.0 [pH] 5.0 - 8.0 [facility] Urine sediment bacteria coun t by microscopy (number/high power field)Ordered By: Tah Leblanc on 02-27-2023 Bacteria LM.HPF (Urine sed) [#/Area] 1 /[HPF] None Seen [facility] Urine specific gravity measu rementOrdered By: Tha Leblanc on 02-27-2023 Specific gravity (U) [Rel density] 1.005 1.002-1.030 [facility] Urobilinogen Auto test strip Ql (U)Ordered By: Tha Leblanc on 02-27-2023 Urobilinogen Ql (U) Normal mg/dl Normal [facility] Absolute lymphocyte countOrd ered By: Louie Aguilar on 02-25-2023 Lymphocytes Auto (Unsp spec) [#/Vol] 0.69 10*3/uL 0.83-4.51 [facility] Basophil percentageOrdered B y: Louie Aguilar on 02-25-2023 Basophil percentage 10-25 SEEN /hpf 0-5 [facility] Basophils/100 WBC (Bld) 0.4 % 0-[address] [facility] Bilirubin [Mass/Vol] 0.40 mg/dL 0.20-1.00 [facility] Comment on above: For patients on eltr ombopag therapy, use of Dimension [place] TBIL is not recommended. Chloride [Moles/Vol] 105 mmol/L 98-107 [facility] Eosinophils/100 WBC (Bld) 1.4 % 0-5 [facility] Glucose [Mass/Vol] 122 mg/dL 74-106 [facility] Comment on above: Fasting Glucose resu lt from 100 to 125 mg/dL suggests IMPAIRED HOMEOSTASIS per A.D.A. criteria. Lactate [Moles/Vol] 1.0 mmol/L 0.4-2.0 [facility] Neutrophils (Bld) [#/Vol] 4.4 10*3/uL 2.0-7.7 [facility] Neutrophils/100 WBC (Bld) 78.8 % 47-70 [facility] Potassium [Moles/Vol] 4.1 mmol/L 3.5-5.1 [facility] Protein [Mass/Vol] 5.3 g/dL 6.4-8.2 [facility] Sodium [Moles/Vol] 137 mmol/L 136-145 [facility] WBC (Bld) [#/Vol] 5.6 10*3/uL 4.4-11.0 [facility] Bilirubin Test strip Ql (U)O rdered By: Louie Aguilar on 02-25-2023 Bilirubin Ql (U) Negative Negative [facility] Blood erythrocytes count (nu mber/volume)Ordered By: Louie Aguilar on 02-25-2023 RBC (Bld) [#/Vol] 3.67 10*6/uL 4.6-6.2 [facility] Blood hemoglobin measurement (mass/volume)Ordered By: Louie Aguilar on 02-25-2023 Hemoglobin (Bld) [Mass/Vol] 11.8 g/dL 13.0-16.5 [facility] Blood lymphocytes/100 leukoc ytesOrdered By: Louie Aguilar on 02-25-2023 Lymphocytes/100 WBC (Bld) 12.4 % 19-41 [facility] Blood monocytes/100 leukocyt esOrdered By: Louie Aguilar on 02-25-2023 Monocytes/100 WBC (Bld) 6.6 % 0-[address] [facility] Blood platelet mean volumeOr dered By: Louie Aguilar on 02-25-2023 Platelet mean volume (Bld) [Entitic vol] 9.3 fL 6.2-12.0 [facility] Determination of erythrocyte mean corpuscular volume (MCV)Ordered By: Louie Aguilar on 02-25-2023 MCV (RBC) [Entitic vol] 97.0 fL 80-[address] [facility] Direct bilirubinOrdered By: Louie Aguilar on 02-25-2023 Bilirubin.direct [Mass/Vol] 0.22 mg/dL 0.00-0.30 [facility] Hematocrit Auto (Bld) [Volum e fraction]Ordered By: Louie Aguilar on 02-25-2023 Hematocrit (Bld) [Volume fraction] 35.6 % 40-54 [facility] Ketones Test strip Ql (U)Ord ered By: Louie Aguilar on 02-25-2023 Ketones Ql (U) Negative Negative [facility] - Chemistry and C hemistry - challengeOrdered By: Louie Aguilar on 02-25-2023 ALP [Catalytic activity/Vol] 114 U/L 45-117 [facility] ALT [Catalytic activity/Vol] 28 U/L 16-61 [facility] CO2 [Moles/Vol] 29.0 mmol/L 21.0-32.0 [facility] Globulin (S) [Mass/Vol] 2.5 g/dL 2.2-4.[address] [facility] Lipase [Catalytic activity/Vol] 16 U/L 13-75 [facility] Comment on above: Please note:LIPASE r evised reference range effective 22. New Lipase methodology. Expected to produce lower values than the previous assay method. NEW Reference Range: 13 - 75 U/L Urea nitrogen/Creatinine [Mass ratio] 9.9 mg/mg 10-20 [facility] - Hematology and Cell countsOrdered By: Louie Aguilar on 02-25-2023 Erythrocyte distribution width (RBC) [Entitic vol] 48.9 fL 35.1-43.9 [facility] Erythrocyte distribution width (RBC) [Ratio] 13.7 % 11.6-14.6 [facility] Immature granulocytes/100 WBC (Bld) 0.400 % 0.0-0.9 [facility] Comment on above: IG% - Immature Granu locytes (promyelocytes, myelocytes and metamyelocytes) > 1% indicates that a LEFT SHIFT is Present. MCH (RBC) [Entitic mass] 32.2 pg 27.0-32.0 [facility] Nucleated RBC/100 WBC (Bld) [Ratio] 0 % 0-5 [facility] MCHC Auto (RBC) [Mass/Vol]Or dered By: Louie Aguilar on 02-25-2023 MCHC (RBC) [Mass/Vol] 33.1 g/dL 32-36 [facility] Mucus LM Ql (Urine sed)Order ed By: Louei Aguilar on 02-25-2023 Mucus Ql (Urine sed) 0 SEEN /hpf [facility] Nitrite Test strip Ql (U)Ord ered By: Louie Aguilar on 02-25-2023 Nitrite Ql (U) Negative Negative [facility] No Panel InformationOrdered By: Louie Aguilar on 02-25-2023 Estimated Creatinine Clearance Calc 19.36 ml/min [facility] Estimated GFR (MDRD) Amer 25 mL/min >60 [facility] Comment on above: GFR Calc Estimated GFR (MDRD) Non-Af Amer 21 mL/min >60 [facility] Comment on above: Non- GFR Calc Platelets bldOrdered By: John Aguilar on 02-25-2023 Platelets (Bld) [#/Vol] 120 10*3/uL 150-450 [facility] Protein Test strip Ql (U)Ord ered By: Louie Aguilar on 02-25-2023 Protein Ql (U) 30 mg/dl Negative [facility] Serum or plasma albumin satish urement (mass/volume)Ordered By: Louie Aguilar on 02-25-2023 Albumin [Mass/Vol] 2.8 g/dL 3.2-5.0 [facility] Serum or plasma calcium satish urement (mass/volume)Ordered By: Louie Aguilar on 02-25-2023 Calcium [Mass/Vol] 8.4 mg/dL 8.5-10.1 [facility] Serum or plasma creatinine m easurement (mass/volume)Ordered By: Louie Aguilar on 02-25-2023 Creatinine [Mass/Vol] 3.14 mg/dL 0.70-1.30 [facility] Comment on above: The validity of the calculated GFR & GFRAA in patients over 70 years has not been determined. Clinical correlation is essential. Serum or plasma urea nitroge n measurement (mass/volume)Ordered By: Louie Aguilar on 02-25-2023 Urea nitrogen [Mass/Vol] 31 mg/dL 7-18 [facility] Squamous epithelial cells de tection in urine sediment by light microscopyOrdered By: Louie Aguilar on 02-25-2023 Epithelial cells.squamous LM Ql (Urine sed) 0 SEEN /hpf 0-5 [facility] Thin prep Papanicolaou smear with manual screeningOrdered By: Louie Aguilar on 02-25-2023 Thin prep Papanicolaou smear with manual screening 22 U/L 15-37 [facility] Thin prep Papanicolaou smear with manual screening 3 5-15 [facility] Urine blood detectionOrdered By: Louie Aguilar on 02-25-2023 RBC Ql (U) 10 /ul Negative [facility] RBC Ql (U) 0-5 SEEN /hpf 0-5 [facility] Urine clarityOrdered By: John Aguilar on 02-25-2023 Clarity (U) Clear Clear [facility] Urine color determinationOrd ered By: Louie Aguilar on 02-25-2023 Color (U) Yellow Yellow [facility] Urine glucose detectionOrder ed By: Louie Aguilar on 02-25-2023 Glucose Ql (U) 50 mg/dl Normal [facility] Urine leukocyte esterase det ection by dipstickOrdered By: Louie Aguilar on 02-25-2023 Leukocyte esterase Test strip Ql (U) 100 /ul Negative [facility] Urine pHOrdered By: Louie pulliam on 02-25-2023 pH (U) 7.0 [pH] 5.0 - 8.0 [facility] Urine sediment bacteria coun t by microscopy (number/high power field)Ordered By: Louie Aguilar on 02-25-2023 Bacteria LM.HPF (Urine sed) [#/Area] 0 /[HPF] None Seen [facility] Urine specific gravity measu rementOrdered By: Louie Aguilar on 02-25-2023 Specific gravity (U) [Rel density] 1.010 1.002-1.030 [facility] Urobilinogen Auto test strip Ql (U)Ordered By: Louie Aguilar on 02-25-2023 Urobilinogen Ql (U) Normal mg/dl Normal [facility] Basic metabolic 1998 panelon 12-31-2022 Anion gap [Moles/Vol] 9 mmol/L 3 - 13 mmol/L [facility] Calcium [Mass/Vol] 8.8 mg/dL 8.4 - 10. 4 mg/dL [facility] Chloride [Moles/Vol] 96 mmol/L Low 98 - 10 7 mmol/L [facility] CO2 [Moles/Vol] 29 mmol/L 22 - 30 mmol/L [facility] Creatinine [Mass/Vol] 3.17 mg/dL High 0.66 - 1.25 mg/dL [facility] GFR/1.73 sq M.predicted MDRD (S/P/Bld) [Vol rate/Area] 19.5 mL/min/{1.73_m2} Low - PINF [facility] th Comment on above: Calculation based on the Chronic Kidney Disease Epidemiology Collaboration (CKD-EPI) equation refit without adjustment for race Glucose [Mass/Vol] 98 mg/dL 70 - 100 mg/dL [facility] Interpretation and review of laboratory results Abnormal [facility] Potassium [Moles/Vol] 3.8 mmol/L 3.5 - 5.1 mmol/L [facility] [employer] Sodium [Moles/Vol] 134 mmol/L Low 135 - 145 mmol/L [facility] Urea nitrogen [Mass/Vol] 24 mg/dL High 9 - 20 mg/dL [facility] POCT glucose meteron 023 Glucose [Mass/Vol] 103 mg/dL High 70 - 100 mg/dL [facility] Interpretation and review of laboratory results Abnormal [facility], [address], [place] [address] CLIA ID: [id number] [facility] CNOVon 12-01-2022 CNOV Office Visit (UCWSTR ) FRANKLIN BURTON ([id number]) 1945 M Date Time Provider Department 12/01/22 11:30 AM [facility] During your visit today, we recorded the following information about you: Temperature Pulse Respiration Blood pressure 98.8 degrees 63/minute 18/minute 110/70 Weight 96.6 kg Ilene Vasques APRN.CNP 12/01/2022 11:48 AM Signed ASSESSMENT/PLAN: 1. Sore throat - ICD9: 462, ICD10: J02.9 (primary diagnosis) - Alere Strep Test negative, no culture pending - Discussed supportive care treatment with fluids, rest and analgesia. - STREP A MOLECULAR (POC) 2. Thrush (oral) - ICD9: 112.0, ICD10: B37.0 - NYSTATIN 100,000 UNIT/ML ORAL SUSPENSION - likely due to recent antibiotic use. - Follow-up with your PCP in 3-5 days if symptoms have not improved or sooner if symptoms worsen - Discussed red flags and need for immediate medical evaluation if any occur. - Discussed supportive care treatment with fluids, rest and analgesia. - Discussed expected course of illness HUONG Mabry APRN.CNP 12/01/2022 11:56 AM Signed Subjective Sore Throat Pertinent negatives include no congestion, coughing, ear pain or headaches. Franklin Burton is a 77 year old male who presents with a sore mouth and throat. He has had this for 4 days but it got much worse last night. He states his mouth is very dry and his tongue felt swollen last night. He has used a sore throat spray at home without relief. He denies fever or any associated URI symptoms. Review of Systems Constitutional: Negative for chills and fever. HENT: Positive for sore throat. Negative for congestion and ear pain. See HPI Respiratory: Negative for cough. Cardiovascular: Negative. Musculoskeletal: Negative. Neurological: Negative for headaches. BP 110/70 Pulse 63 Temp 37.1 ?C (98.8 ?F) Resp 18 Wt 96.6 kg (213 lb) SpO2 97% BMI 34.38 kg/m? No past medical history on file. PAST SURGICAL HISTORY Procedure Laterality Date KNEE ARTHROSCOPY/SURGERY 1988 Left knee-St ALLERGIES Aspirin and Seasonal Allergies MEDICATIONS gabapentin (NEURONTIN) 100 mg capsule TAKE 2 CAPSULES BY MOUTH ONCE DAILY AT BEDTIME FOR 90 DAYS oxyCODONE-acetaminoph en (PERCOCET) 5-325 mg tablet TAKE 1 TABLET BY MOUTH EVERY 8 HOURS NEEDED FOR PAIN FOR 30 DAYS metoprolol tartrate, short acting, 25 mg tablet Take 0.5 tablets by mouth twice daily. omeprazole (PRILOSEC) 20 mg capsule Take 1 capsule by mouth daily before breakfast. 1/2 hr before meal. (Patient taking differently: Take 40 mg by mouth daily before breakfast. 1/2 hr before meal.) nystatin (MYCOSTATIN) 100,000 unit/mL suspension Take 5 mL by mouth four times daily for 14 days. 1tsp swish in mouth for several minutes, then swallow (or expectorate) 4 times daily until gone. albuterol HFA (PROAIR HFA) 90 mcg/actuation inhaler Inhale 2 Puffs as instructed every 4 hours as needed. (Patient not taking: Reported on 12/01/2022) codeine-guaiFENesin 10-100 mg/5 mL syrup Take 5-10 mL by mouth four times daily as needed for Cough. May cause drowsiness. (Patient not taking: Reported on 12/01/2022) zolpidem (AMBIEN) 5 mg tablet Take 1 tablet by mouth at bedtime as needed for Sedation. (Patient not taking: Reported on 12/01/2022) predniSONE 10 mg tablet Take 40 mg po daily with food. (Patient not taking: Reported on 12/01/2022) aspirin, enteric coated (ASPIR-LOW) 81 mg EC tablet Take 1 tablet by mouth once daily. (Patient not taking: Reported on 12/01/2022) predniSONE 20 mg tablet Take 1 tablet by mouth twice daily. (Patient not taking: Reported on 12/01/2022) tamsulosin 0.4 mg cp24 Take 0.4 mg by mouth once daily. (Patient not taking: Reported on 12/01/2022) aspirin 325 mg tablet Take 325 mg by mouth every 6 hours as needed. For pain (Patient not taking: Reported on 12/01/2022) FAMILY HISTORY Problem Relation Age of Onset Prostate Cancer Father Heart Mother Diabetes Maternal Grandmother Diabetes Paternal Grandmother Social History Tobacco Use Smoking status: Former Types: Cigarettes Quit date: 05/19/1981 Years since quittin.5 Substance Use Topics Alcohol use: No Drug use: No Objective Physical Exam Vitals and nursing note reviewed. Constitutional: Appearance: Normal appearance. HENT: Mouth/Throat: Lips: [place]. Mouth: Mucous membranes are dry. Pharynx: Posterior oropharyngeal erythema present. Cardiovascular: Rate and Rhythm: Normal rate and regular rhythm. Heart sounds: Murmur heard. Pulmonary: Effort: Pulmonary effort is normal. No respiratory distress. Breath sounds: Normal breath sounds. No wheezing or rales. Neurological: Mental Status: He is alert. ASSESSMENT/PLAN: 1. Sore throat - ICD9: 462, ICD10: J02.9 (primary diagnosis) - Alere Strep Test negative, no culture pending - Di (more content not included)... Normal [facility] STREP A MOLECULAR (POC)on Procedural Control Valid [facility] Strep A (POCT) Negative Negative [facility] Absolute lymphocyte countOrd ered By: Matilde Noguera on 11-28-2022 Lymphocytes Auto (Unsp spec) [#/Vol] 1.10 10*3/uL 0.83-4.51 [place] Basophil percentageOrdered B y: Matilde Noguera on 11-28-2022 Basophil percentage >100 SEEN /hpf 0-[address] [facility] Basophils/100 WBC (Bld) 0.7 % 0-[address] [facility] Bilirubin [Mass/Vol] 0.70 mg/dL 0.20-1.00 [facility] Comment on above: For patients on eltr ombopag therapy, use of Dimension [place] TBIL is not recommended. Chloride [Moles/Vol] 101 mmol/L 98-107 [facility] Cholesterol [Mass/Vol] 149 mg/dL <200 [facility] Comment on above: <200 mg/dL Desirable 200-240 mg/dL Borderline >240 mg/dL High Risk Eosinophils/100 WBC (Bld) 2.3 % 0-5 [place] Glucose [Mass/Vol] 88 mg/dL 74-106 [facility] Neutrophils (Bld) [#/Vol] 5.0 10*3/uL 2.0-7.7 [place] Neutrophils/100 WBC (Bld) 72.0 % 47-70 [place] Potassium [Moles/Vol] 4.9 mmol/L 3.5-5.1 [place] Protein [Mass/Vol] 6.4 g/dL 6.4-8.2 [facility] Sodium [Moles/Vol] 134 mmol/L 136-145 [facility] Triglyceride [Mass/Vol] 98 mg/dL <[address] [facility] Comment on above: The drugs N-Acetylcy steine and Metamizole may falsely depress this assay.Serum Triglycerides Reference Interval Normal <150 mg/dL Borderline high 150 - 199 mg/dL High 200 - 499 mg/dL Very High > or = 500 mg/dL WBC (Bld) [#/Vol] 6.9 10*3/uL 4.4-11.0 [facility] Bilirubin Test strip Ql (U)O rdered By: Matilde Noguera on 11-28-2022 Bilirubin Ql (U) Negative Negative [place] Blood erythrocytes count (nu mber/volume)Ordered By: Matilde Noguera on 11-28-2022 RBC (Bld) [#/Vol] 3.65 10*6/uL 4.6-6.2 [facility] Blood hemoglobin measurement (mass/volume)Ordered By: Matilde Noguera on 11-28-2022 Hemoglobin (Bld) [Mass/Vol] 11.1 g/dL 13.0-16.5 [place] Blood lymphocytes/100 leukoc ytesOrdered By: Matilde Noguera on 11-28-2022 Lymphocytes/100 WBC (Bld) 16.0 % 19-41 [place] Blood monocytes/100 leukocyt esOrdered By: Matilde Noguera on 11-28-2022 Monocytes/100 WBC (Bld) 8.6 % 0-[address] [facility] Blood platelet mean volumeOr dered By: Matilde Noguera on 11-28-2022 Platelet mean volume (Bld) [Entitic vol] 9.3 fL 6.2-12.0 [place] Culture, urineOrdered By: Marvin Noguera on 11-28-2022 Bacteria identified Cx Nom (U) Meth. resistant Staph. aureus [place] Determination of erythrocyte mean corpuscular volume (MCV)Ordered By: Matilde Noguera on 11-28-2022 MCV (RBC) [Entitic vol] 97.3 fL 80-[address] [facility] Hematocrit Auto (Bld) [Volum e fraction]Ordered By: Matilde Noguera on 11-28-2022 Hematocrit (Bld) [Volume fraction] 35.5 % 40-54 [place] Ketones Test strip Ql (U)Ord ered By: Matilde Noguera on 11-28-2022 Ketones Ql (U) 5 mg/dl Negative [place] [facility] - Chemistry and C hemistry - challengeOrdered By: Matilde Noguera on 11-28-2022 ALP [Catalytic activity/Vol] 86 U/L 45-117 [place] ALT [Catalytic activity/Vol] 16 U/L 16-61 [place] CO2 [Moles/Vol] 27.0 mmol/L 21.0-32.0 [place] Globulin (S) [Mass/Vol] 3.0 g/dL 2.2-4.[address] [facility] Urea nitrogen/Creatinine [Mass ratio] 8.3 mg/mg 10-20 [place] [facility] - Hematology and Cell countsOrdered By: Matilde Noguera on 11-28-2022 Erythrocyte distribution width (RBC) [Entitic vol] 49.6 fL 35.1-43.9 [place] Erythrocyte distribution width (RBC) [Ratio] 13.9 % 11.6-14.6 [place] Immature granulocytes/100 WBC (Bld) 0.400 % 0.0-0.9 [place] Comment on above: IG% - Immature Granu locytes (promyelocytes, myelocytes and metamyelocytes) > 1% indicates that a LEFT SHIFT is Present. MCH (RBC) [Entitic mass] 30.4 pg 27.0-32.0 [place] Nucleated RBC/100 WBC (Bld) [Ratio] 0 % 0-5 [place] MCHC Auto (RBC) [Mass/Vol]Or dered By: Matilde Noguera on 11-28-2022 MCHC (RBC) [Mass/Vol] 31.3 g/dL 32-36 [place] Mucus LM Ql (Urine sed)Order ed By: Matilde Noguera on 11-28-2022 Mucus Ql (Urine sed) 0 SEEN /hpf [place] Nitrite Test strip Ql (U)Ord ered By: Matilde Noguera on 11-28-2022 Nitrite Ql (U) Negative Negative [place] No Panel InformationOrdered By: Matilde Noguera on 11-28-2022 Urine Transitional Epithelial Cells See comment 0-5 [place] Comment on above: Microscopic field is filled. Other elements may be obscured. Estimated GFR (MDRD) Amer 15 mL/min >60 [place] Comment on above: GFR Calc Estimated GFR (MDRD) Non-Af Amer 12 mL/min >60 [place] Comment on above: Non- GFR Calc Platelets bldOrdered By: Kwasi Noguera on 11-28-2022 Platelets (Bld) [#/Vol] 163 10*3/uL 150-450 [place] Protein Test strip Ql (U)Ord ered By: Matilde Noguera on 11-28-2022 Protein Ql (U) 500 mg/dl Negative [place] Serum or plasma albumin satish urement (mass/volume)Ordered By: Matilde Noguera on 11-28-2022 Albumin [Mass/Vol] 3.4 g/dL 3.2-5.0 [facility] Serum or plasma albumin/glob ulin mass ratioOrdered By: Matilde Noguera on 11-28-2022 Albumin/Globulin [Mass ratio] 1.1 {ratio} 0.9-2.4 [place] Serum or plasma calcium satish urement (mass/volume)Ordered By: Matilde Noguera on 11-28-2022 Calcium [Mass/Vol] 8.9 mg/dL 8.5-10.1 [facility] Serum or plasma cholesterol in HDL measurement (mass/volume)Ordered By: Matilde Noguera on 11-28-2022 Cholesterol in HDL [Mass/Vol] 52 mg/dL >40 [place] Comment on above: The drugs N-Acetylcy steine and Metamizole may falsely depress this assay. Reference Range HDL <40 mg/dL Low HDL Cholesterol HDL >or= 60 mg/dL High HDL Cholesterol Serum or plasma cholesterol in VLDL measurement (mass/volume)Ordered By: Matilde Noguera on 11-28-2022 Cholesterol in VLDL [Mass/Vol] 20 mg/dL 5-40 [place] Serum or plasma creatinine m easurement (mass/volume)Ordered By: Matilde Noguera on 11-28-2022 Creatinine [Mass/Vol] 4.96 mg/dL 0.70-1.30 [place] Comment on above: The validity of the calculated GFR & GFRAA in patients over 70 years has not been determined. Clinical correlation is essential. Serum or plasma low density lipoprotein (LDL) cholesterol measurement (mass/volume)Ordered By: Matilde Noguera on 11-28-2022 Cholesterol in LDL [Mass/Vol] 77 mg/dL 0-130 [place] Serum or plasma urea nitroge n measurement (mass/volume)Ordered By: Matilde Noguera on 11-28-2022 Urea nitrogen [Mass/Vol] 41 mg/dL 7-18 [place] Squamous epithelial cells de tection in urine sediment by light microscopyOrdered By: Matilde Noguera on 11-28-2022 Epithelial cells.squamous LM Ql (Urine sed) 5-10 SEEN /hpf 0-5 [place] Thin prep Papanicolaou smear with manual screeningOrdered By: Matilde Noguera on 11-28-2022 Thin prep Papanicolaou smear with manual screening 16 U/L 15-37 [place] Thin prep Papanicolaou smear with manual screening 6 5-15 [place] Urine blood detectionOrdered By: Matilde Noguera on 11-28-2022 RBC Ql (U) 250 /ul Negative [place] RBC Ql (U) > 100 SEEN /hpf 0-5 [place] Urine clarityOrdered By: Kwasi Noguera on 11-28-2022 Clarity (U) Cloudy Clear [place] Urine color determinationOrd ered By: Matilde Noguera on 11-28-2022 Color (U) Leydi Yellow [place] Urine glucose detectionOrder ed By: Matilde Noguera on 11-28-2022 Glucose Ql (U) Normal mg/dl Normal [place] Urine leukocyte esterase det ection by dipstickOrdered By: Matilde Noguera on 11-28-2022 Leukocyte esterase Test strip Ql (U) 500 /ul Negative [place] Urine pHOrdered By: Matilde villa on 11-28-2022 pH (U) 6.5 [pH] 5.0 - 8.0 [place] Urine sediment bacteria coun t by microscopy (number/high power field)Ordered By: Matilde Noguera on 11-28-2022 Bacteria LM.HPF (Urine sed) [#/Area] 0 /[HPF] None Seen [place] Urine specific gravity measu rementOrdered By: Matilde Noguera on 11-28-2022 Specific gravity (U) [Rel density] 1.015 1.002-1.030 [place] Urobilinogen Auto test strip Ql (U)Ordered By: Matilde Noguera on 11-28-2022 Urobilinogen Ql (U) Normal mg/dl Normal [place] No Panel InformationOrdered By: Dr. Decker on 09-10-2022 Prostate Specific Antigen Total 11.40 ng/mL 0.0-4.0 [place] Comment on above: This test was perfor med using the TPSA assay method for theIotera2theloo chemistry system. Values obtained with differentassay methods cannot be used interchangably.When changing PSA assays in the course of monitoring apatient, additional sequential testing should be carriedout to confirm baseline values. HBV core IgM Ser Qlon 2022 HBV core IgM Ql (S) Negative Normal Negative [facility] Comment on above: Order Comment: Speci men Type: BLOOD SPECIMEN Ordering Facility: [facility] Address: [facility] [place] [address] Result Comment: No e vidence of recent infection with Hepatitis B virus. Should recent infection be suspected, repeat testing may be considered 3-4 weeks after this draw. Performed By: #### 5 195-3, 69571-8, 30437-1 #### [facility] CLIA [id number] [address] [place] [address] [place] HBV surface Ab Ql (S)on 06-20 HBV surface Ab Qn (S) <8.00 Low >=12.00 [facility] Comment on above: Order Comment: Speci [facility] Type: BLOOD SPECIMEN Ordering Facility: [facility] Address: [facility] [place] [address] Performed By: #### 5 -3, , 02889-7 #### [facility] CLIA [id number] [address] [place] [address] [place] HBV surface Ab Ser Qlon 06-20 HBV surface Ab Ql (S) Negative Abnormal Positive [facility] Comment on above: Order Comment: Speci [facility] Type: BLOOD SPECIMEN Ordering Facility: [facility] Address: [facility] [place] [address] Result Comment: No e vidence of antibodies to Hepatitis B surface antigen. Performed By: #### 5 -3, , 83973-4 #### [facility] CLIA [id number] [address] [place] [address] [place] HBV surface Ag Ser Qlon 06-20 HBV surface Ag Ql (S) Negative Normal Negative [facility] Comment on above: Order Comment: Speci [facility] Type: BLOOD SPECIMEN Ordering Facility: [facility] Address: [facility] [place] [address] Performed By: #### 5 195-3, 93291-1, 26449-2 #### [facility] CLIA [id number] [address] [place] [address] [place] PROTEINASE 3 ANTIBODYon 02-0 Proteinase 3 Ab Qn (S) 1.0 AI High <1.0 [facility] Comment on above: Order Comment: Speci men Type: BLOOD SPECIMEN Ordering Facility: [facility] Address[facility] [place] [address] Performed By: #### A NCAC #### [facility] CLIA [id number] [address] [place] [address] [place] PTH-Intact SerPl-mCncon 02-0 Parathyrin.intact [Mass/Vol] 160 pg/mL High 15-65 [facility] Comment on above: Order Comment: Speci men Type: BLOOD SPECIMEN Ordering Facility: [facility] [place] [address] Performed By: #### 2 731-8 #### [facility] CLIA [id number] [address] [place] [address] [place] PROTEINASE 3 ANTIBODYon 10-0 Proteinase 3 Ab Qn (S) 1.1 AI High <1.0 [facility] Comment on above: Order Comment: Speci men Type: BLOOD SPECIMEN Ordering Facility: [facility] Address: [facility] [place] [address] Performed By: #### A NCAC #### [facility] CLIA [id number] [address] [place] [address] [place] PTH-Intact SerPl-mCncon 100 Parathyrin.intact [Mass/Vol] 150 pg/mL High 15-65 [facility] Comment on above: Order Comment: Speci men Type: BLOOD SPECIMENOrdering Facility: [facility] Address: [facility] [place] [address] Performed By: #### 2 731-8 ####[facility] [id number] [place] [address] [place] Absolute lymphocyte counton 01-19-2022 Lymphocytes Auto (Unsp spec) [#/Vol] 0.34 10*3/uL 0.83-4.51 [place] Work Phone: Basophil percentageon 2021 Basophils/100 WBC (Bld) 0.6 % 0-[address] [facility] Work Phone: Chloride [Moles/Vol] 105 mmol/L 98-107 [facility] Work Phone: Eosinophils/100 WBC (Bld) 0.3 % 0-5 [place] Work Phone: Glucose [Mass/Vol] 102 mg/dL 74-106 [facility] Work Phone: Comment on above: Fasting Glucose resu lt from 100 to 125 mg/dL suggests IMPAIRED HOMEOSTASIS per A.D.A. criteria. Neutrophils (Bld) [#/Vol] 2.8 10*3/uL 2.0-7.7 [place] Work Phone: Neutrophils/100 WBC (Bld) 77.1 % 47-70 [place] Work Phone: Potassium [Moles/Vol] 4.6 mmol/L 3.5-5.1 [facility] Work Phone: Sodium [Moles/Vol] 135 mmol/L 136-145 [facility] Work Phone: WBC (Bld) [#/Vol] 3.6 10*3/uL 4.4-11.0 [facility] Work Phone: Blood erythrocytes count (nu mber/volume)on 01-19-2022 RBC (Bld) [#/Vol] 4.30 10*6/uL 4.6-6.2 [facility] Work Phone: Blood hemoglobin measurement (mass/volume)on 01-19-2022 Hemoglobin (Bld) [Mass/Vol] 13.0 g/dL 13.0-16.5 [place] Work Phone: Blood lymphocytes/100 leukoc yteson 01-19-2022 Lymphocytes/100 WBC (Bld) 9.6 % 19-41 [place] Work Phone: Blood manual differential co mment interpretation (narrative result)on 01-19-2022 Manual differential comment Yunior (Bld) [Interp] SCANNED [place] Work Phone: Blood monocytes/100 leukocyt eson 01-19-2022 Monocytes/100 WBC (Bld) 11.8 % 0-[address] [facility] Work Phone: Blood platelet adequacy dete ction by light microscopyon 01-19-2022 Platelets LM Ql (Bld) SLT DEC ADEQ [place] Work Phone: Blood platelet mean volumeon 01-19-2022 Platelet mean volume (Bld) [Entitic vol] 9.2 fL 6.2-12.0 [place] Work Phone: Determination of erythrocyte mean corpuscular volume (MCV)on 01-19-2022 MCV (RBC) [Entitic vol] 94.4 fL 80-[address] [facility] Work Phone: Hematocrit Auto (Bld) [Volum e fraction]on 01-19-2022 Hematocrit (Bld) [Volume fraction] 40.6 % 40-54 [place] Work Phone: Laboratory - Chemistry and C hemistry - challengeon 01-19-2022 CO2 [Moles/Vol] 22.0 mmol/L 21.0-32.0 [place] Work Phone: Urea nitrogen/Creatinine [Mass ratio] 9.4 mg/mg 10-20 [place] Work Phone: Laboratory - Hematology and Cell countson 01-19-2022 Erythrocyte distribution width (RBC) [Entitic vol] 46.6 fL 35.1-43.9 [place] Work Phone: Erythrocyte distribution width (RBC) [Ratio] 13.5 % 11.6-14.6 [place] Work Phone: Immature granulocytes/100 WBC (Bld) 0.600 % 0.0-0.9 [place] Work Phone: Comment on above: IG% - Immature Granu locytes (promyelocytes, myelocytes and metamyelocytes) > 1% indicates that a LEFT SHIFT is Present. MCH (RBC) [Entitic mass] 30.2 pg 27.0-32.0 [place] Work Phone: Nucleated RBC/100 WBC (Bld) [Ratio] 0 % 0-5 [place] Work Phone: MCHC Auto (RBC) [Mass/Vol]on 01-19-2022 MCHC (RBC) [Mass/Vol] 32.0 g/dL 32-36 [place] Work Phone: No Panel Informationon 01-19 Estimated Creatinine Clearance Calc 19.30 ml/min [place] Work Phone: Estimated GFR (MDRD) Amer 25 mL/min >60 [place] Work Phone: Comment on above: GFR Calc Estimated GFR (MDRD) Non-Af Amer 20 mL/min >60 [place] Work Phone: Comment on above: Non- GFR Calc Thyroid Stimulating Hormone (TSH) 1.14 uIU/mL 0.358-3.74 [place] Work Phone: Platelets bldon 01-19-2022 Platelets (Bld) [#/Vol] 98 10*3/uL 150-[address] [facility] Work Phone: Review by pathologiston Pathologist review Yunior (Unsp spec) [Interp] September hu [place] Work Phone: Serum or plasma calcium satish urement (mass/volume)on 01-19-2022 Calcium [Mass/Vol] 8.7 mg/dL 8.5-10.1 [facility] Work Phone: Serum or plasma creatinine m easurement (mass/volume)on 01-19-2022 Creatinine [Mass/Vol] 3.20 mg/dL 0.70-1.30 [place] Work Phone: Comment on above: The validity of the calculated GFR & GFRAA in patients over 70 years has not been determined. Clinical correlation is essential. Serum or plasma urea nitroge n measurement (mass/volume)on 01-19-2022 Urea nitrogen [Mass/Vol] 30 mg/dL 7-18 [place] Work Phone: Thin prep Papanicolaou smear with manual screeningon 01-19-2022 Thin prep Papanicolaou smear with manual screening 8 5-15 [place] Work Phone: Absolute lymphocyte counton 01-18-2022 Lymphocytes Auto (Unsp spec) [#/Vol] 0.27 10*3/uL 0.83-4.51 [place] Work Phone: Basophil percentageon 2021 Basophils/100 WBC (Bld) 0.4 % 0-[address] [facility] Work Phone: Bilirubin [Mass/Vol] 0.50 mg/dL 0.20-1.00 [facility] Work Phone: Comment on above: For patients on eltr ombopag therapy, use of Dimension [place] TBIL is not recommended. Chloride [Moles/Vol] 106 mmol/L 98-107 [facility] Work Phone: Eosinophils/100 WBC (Bld) 1.1 % 0-5 [place] Work Phone: Glucose [Mass/Vol] 111 mg/dL 74-106 [facility] Work Phone: Comment on above: Fasting Glucose resu lt from 100 to 125 mg/dL suggests IMPAIRED HOMEOSTASIS per A.D.A. criteria. Lactate [Moles/Vol] 0.9 mmol/L 0.4-2.0 [facility] Work Phone: Neutrophils (Bld) [#/Vol] 3.8 10*3/uL 2.0-7.7 [place] Work Phone: Neutrophils/100 WBC (Bld) 82.1 % 47-70 [place] Work Phone: Potassium [Moles/Vol] 5.3 mmol/L 3.5-5.1 [facility] Work Phone: Protein [Mass/Vol] 6.9 g/dL 6.4-8.[address] [facility] [facility] Work Phone: Sodium [Moles/Vol] 137 mmol/L 136-[address] [facility] Work Phone: WBC (Bld) [#/Vol] 4.6 10*3/uL 4.4-11.0 [facility] Work Phone: Basophil percentage 0 SEEN /hpf 0-5 [facility] Work Phone: Bilirubin Test strip Ql (U)o n 01-18-2022 Bilirubin Ql (U) Negative Negative [place] Work Phone: Blood erythrocytes count (nu mber/volume)on 01-18-2022 RBC (Bld) [#/Vol] 4.33 10*6/uL 4.6-6.2 [facility] Work Phone: Blood hemoglobin measurement (mass/volume)on 01-18-2022 Hemoglobin (Bld) [Mass/Vol] 13.4 g/dL 13.0-16.5 [place] Work Phone: Blood lymphocytes/100 leukoc yteson 01-18-2022 Lymphocytes/100 WBC (Bld) 5.8 % 19-41 [place] Work Phone: Blood manual differential co mment interpretation (narrative result)on 01-18-2022 Manual differential comment Yunior (Bld) [Interp] SCANNED [place] Work Phone: Comment on above: LYMPHOPENIA NOTED Blood monocytes/100 leukocyt eson 01-18-2022 Monocytes/100 WBC (Bld) 10.0 % 0-[address] [facility] Work Phone: Blood platelet mean volumeon 01-18-2022 Platelet mean volume (Bld) [Entitic vol] 10.3 fL 6.2-12.0 [place] Work Phone: Determination of erythrocyte mean corpuscular volume (MCV)on 01-18-2022 MCV (RBC) [Entitic vol] 94.9 fL 80-[address] [facility] Work Phone: Hematocrit Auto (Bld) [Volum e fraction]on 01-18-2022 Hematocrit (Bld) [Volume fraction] 41.1 % 40-54 [place] Work Phone: INR in Blood by Coagulation assayon 01-18-2022 INR Coag (Bld) [Relative time] 1.1 {INR} [place] Work Phone: Ketones Test strip Ql (U)on 01-18-2022 Ketones Ql (U) Negative Negative [place] Work Phone: Laboratory - Chemistry and C hemistry - challengeon 01-18-2022 ALP [Catalytic activity/Vol] 114 U/L 45-117 [place] Work Phone: ALT [Catalytic activity/Vol] 16 U/L 16-61 [place] Work Phone: CO2 [Moles/Vol] 25.0 mmol/L 21.0-32.0 [place] Work Phone: Globulin (S) [Mass/Vol] 3.0 g/dL 2.2-4.[address] [facility] Work Phone: Urea nitrogen/Creatinine [Mass ratio] 9.0 mg/mg 10-20 [place] Work Phone: Laboratory - Coagulationon 0 01-18-2022 aPTT Coag (Bld) [Time] 30.2 s 24.1-36.2 [facility] Work Phone: PT Coag (PPP) [Time] 13.8 s 11.7-14.9 [facility] Work Phone: Laboratory - Hematology and Cell countson 01-18-2022 Erythrocyte distribution width (RBC) [Entitic vol] 47.4 fL 35.1-43.9 [place] Work Phone: Erythrocyte distribution width (RBC) [Ratio] 13.4 % 11.6-14.6 [place] Work Phone: Immature granulocytes/100 WBC (Bld) 0.600 % 0.0-0.9 [place] Work Phone: Comment on above: IG% - Immature Granu locytes (promyelocytes, myelocytes and metamyelocytes) > 1% indicates that a LEFT SHIFT is Present. MCH (RBC) [Entitic mass] 30.9 pg 27.0-32.0 [place] Work Phone: Nucleated RBC/100 WBC (Bld) [Ratio] 0 % 0-5 [place] Work Phone: MCHC Auto (RBC) [Mass/Vol]on 01-18-2022 MCHC (RBC) [Mass/Vol] 32.6 g/dL 32-36 [place] Work Phone: Mucus LM Ql (Urine sed)on Mucus Ql (Urine sed) 0 SEEN /hpf [place] Work Phone: Nitrite Test strip Ql (U)on 01-18-2022 Nitrite Ql (U) Negative Negative [place] Work Phone: No Panel Informationon 01-18 Estimated Creatinine Clearance Calc 16.79 ml/min [place] Work Phone: Estimated GFR (MDRD) Amer 23 mL/min >60 [place] Work Phone: Comment on above: GFR Calc Estimated GFR (MDRD) Non-Af Amer 19 mL/min >60 [place] Work Phone: Comment on above: Non- GFR Calc Platelets bldon 01-18-2022 Platelets (Bld) [#/Vol] 131 10*3/uL 150-450 [place] Work Phone: Protein Test strip Ql (U)on 01-18-2022 Protein Ql (U) 100 mg/dl Negative [place] Work Phone: Serum or plasma albumin satish urement (mass/volume)on 01-18-2022 Albumin [Mass/Vol] 3.9 g/dL 3.2-5.0 [facility] Work Phone: Serum or plasma albumin/glob ulin mass ratioon 01-18-2022 Albumin/Globulin [Mass ratio] 1.3 {ratio} 0.9-2.4 [place] Work Phone: Serum or plasma calcium satish urement (mass/volume)on 01-18-2022 Calcium [Mass/Vol] 9.0 mg/dL 8.5-10.1 [facility] Work Phone: Serum or plasma creatinine m easurement (mass/volume)on 01-18-2022 Creatinine [Mass/Vol] 3.43 mg/dL 0.70-1.30 [place] Work Phone: Comment on above: The validity of the calculated GFR & GFRAA in patients over 70 years has not been determined. Clinical correlation is essential. Serum or plasma urea nitroge n measurement (mass/volume)on 01-18-2022 Urea nitrogen [Mass/Vol] 31 mg/dL 7-18 [place] Work Phone: Squamous epithelial cells de tection in urine sediment by light microscopyon 01-18-2022 Epithelial cells.squamous LM Ql (Urine sed) 0 SEEN /hpf 0-5 [place] Work Phone: Thin prep Papanicolaou smear with manual screeningon 01-18-2022 Thin prep Papanicolaou smear with manual screening 13 U/L 15-37 [place] Work Phone: Thin prep Papanicolaou smear with manual screening 6 5-15 [place] Work Phone: Urine blood detectionon 09-0 2-2022 RBC Ql (U) 10 /ul Negative [place] Work Phone: RBC Ql (U) 0 SEEN /hpf 0-5 [place] Work Phone: Urine clarityon 01-18-2022 Clarity (U) Clear Clear [place] Work Phone: Urine color determinationon 01-18-2022 Color (U) Yellow Yellow [place] Work Phone: Urine glucose detectionon Glucose Ql (U) Normal mg/dl Normal [place] Work Phone: Urine leukocyte esterase det ection by dipstickon 01-18-2022 Leukocyte esterase Test strip Ql (U) Negative Negative [place] Work Phone: Urine pHon 01-18-2022 pH (U) 8.0 [pH] 5.0 - 8.0 [place] Work Phone: Urine sediment bacteria coun t by microscopy (number/high power field)on 01-18-2022 Bacteria LM.HPF (Urine sed) [#/Area] RARE /hpf None Seen [place] Work Phone: Urine specific gravity measu rementon 01-18-2022 Specific gravity (U) [Rel density] 1.010 1.002-1.030 [place] Work Phone: Urobilinogen Auto test strip Ql (U)on 01-18-2022 Urobilinogen Ql (U) Normal mg/dl Normal [place] Work Phone: PROTEINASE 3 ANTIBODYon 08-0 Proteinase 3 Ab Qn (S) 1.3 AI High <1.0 [facility] Comment on above: Order Comment: Speci men Type: BLOOD SPECIMEN Ordering Facility: [facility] Address: [address] [place] [address] Performed By: #### A NCAC #### [facility] CLIA [id number] [address] [place] [address] [place] PTH-Intact SerPl-mCncon 08-0 Parathyrin.intact [Mass/Vol] 129 pg/mL High 15-65 [facility] Comment on above: Order Comment: Speci men Type: BLOOD SPECIMEN Ordering Facility: [facility] Address: [address] [place] [address] Performed By: #### 2 731-8 #### [facility] CLIA [id number] [address] [facility] [place] [address] [place] HepB SurfaceAb,Quanton 07-12 HepB SurfaceAb,Quant <8.00 Normal <8.00 [facility] Comment on above: Performed By: #### P THI #### [facility] Routine Lab [address] [place] [address] Hepatitis B Surf. Agon 07-12 Hepatitis B Surf. Ag NEGAT Normal Negative [facility] Comment on above: Performed By: #### P THI #### [facility] Routine Lab [address] [place], [place] [address] PTH, Intacton 07-12-2021 PTH, Intact 99 pg/mL High - [facility] Comment on above: Performed By: #### P THI #### [facility] Routine Lab [address] [place], [place] [address] Proteinase 3 Abon 07-12-2021 Proteinase 3 Ab 1.1 AI High <1.0 [facility] Comment on above: Performed By: #### P THI #### [facility] Routine Lab [address] [place], [place] [address] C3 Complementon 07-11-2021 C3 Complement 125 mg/dL Normal 86-166 [facility] Comment on above: Performed By: #### P THI #### [facility] Routine Lab [address] [place], [place] [address] C4 Complementon 07-11-2021 C4 Complement 18 mg/dL Normal 13-46 [facility] Comment on above: Performed By: #### P THI #### [facility] Routine Lab [address] [place] [phone] PSA, Freeon 06-16-2021 PSA, Diagnostic 11.62 ng/mL High <2.60 [facility] Comment on above: Performed By: #### P SATF #### [facility] Routine Lab [address] [place] [phone] PSA, Percent Free DO NOT OR 25 % Normal [facility] Comment on above: Performed By: #### P SATF #### [facility] Routine Lab [address] [place] [phone] PTH, Intacton 05-30-2021 PTH, Intact 123 pg/mL High 15-65 [facility] Comment on above: Performed By: #### P THI #### [facility] Routine Lab [address] [phone] Proteinase 3 Abon 05-30-2021 Proteinase 3 Ab 1.1 AI High <1.0 [facility] Comment on above: Performed By: #### P THI #### [facility] Routine Lab [address] [place] [phone] C3 Complementon 05-29-2021 C3 Complement 114 mg/dL Normal 86-166 [facility] Comment on above: Performed By: #### H BSAG, C4COMP, AHBSQ, C3COMP #### [facility] Routine Lab [address] [place] [phone] #### ANCAC #### [facility] Immuno Assay [address] [phone] C4 Complementon 05-29-2021 C4 Complement 17 mg/dL Normal 13-46 [facility] Comment on above: Performed By: #### H BSAG, C4COMP, AHBSQ, C3COMP #### [facility] Routine Lab [address] [place] [phone] #### ANCAC #### [facility] Immuno Assay [address] [place], [place] [address] HepB SurfaceAb,Quanton 05-29 HepB SurfaceAb,Quant <8.00 Normal <8.00 [facility] Comment on above: Performed By: #### P THI #### [facility] Routine Lab [address] [place] [address] Hepatitis B Surf. Agon 05-29 Hepatitis B Surf. Ag NEGAT Normal Negative [facility] Comment on above: Performed By: #### P THI #### [facility] Routine Lab [address] [place] [address] PTH, Intacton 03-03-2021 PTH, Intact Normal 15-65 [facility] Comment on above: Result Comment: Unab le to assay. Specimen too old to perorm test. Account Credited Performed By: #### P THI #### [facility] Routine Lab [address] [place] [address] C3 Complementon 02-28-2021 C3 Complement 124 mg/dL Normal 86-166 [facility] Comment on above: Performed By: #### A NCAC #### [facility] [employer] Immuno Assay [address] [place] [address] #### C3COMP, C4COMP #### [facility] Routine Lab [address] [place] [address] C4 Complementon 02-28-2021 C4 Complement 19 mg/dL Normal 13-46 [facility] Comment on above: Performed By: #### A NCAC #### [facility] [employer] Immuno Assay [address] [place] [address] #### C3COMP, C4COMP #### [facility] Routine Lab [address] [place] [phone] Proteinase 3 Abon 02-28-2021 Proteinase 3 Ab 1.2 AI High <1.0 [facility] Comment on above: Performed By: #### A NCAC #### [facility] Immuno Assay [address], [place] [id number] #### C3COMP, C4COMP #### [facility] Routine Lab [address], [place] [phone] Urea Nitrogen,Ur,Ranon 02-28 Urea nitrogen [Mass/Vol] 483 mg/dL Normal 140-1500 [facility] Comment on above: Performed By: #### U UNR #### [facility] Routine Lab [address] [place] [id number] Op Noteon 02-20-2021 Op Note PATIENT: FRANKLIN BURTON ADMISSION DATE: 02/20/2021 SURGERY DATE: 02/20/2021 DATE OF : 1945 AGE: 75 ADMITTING PHYSICIAN: Rambo Jade MD ATTENDING PHYSICIAN: Rambo Jade MD DICTATING PHYSICIAN: Rambo Jade MD OPERATIVE RECORD Procedure: LEFT UPPER ARM BRACHIOCEPHALIC ARTERIOVENOUS FISTULA. Preoperative Diagnosis: Chronic kidney disease. Postoperative Diagnosis: Chronic kidney disease. Anesthesia: Regional block. Resident Surgeon: Dr. Mandeep Patel. Estimated Blood Loss: 10 cc. Indications: The patient is a 75-year-old gentleman with worsening stage 5 chronic kidney disease, referred by Nephrology for hemodialysis access. He is right-handed. Vein mapping was reviewed and looked better proximal to the elbow. He presents now for arteriovenous fistula for hemodialysis access. Description of Procedure: After informed consent, the patient was brought to the operating room. After regional block, left upper extremity was prepped and draped circumferentially in sterile fashion. IV Ancef was given prior to skin incision for antibiotic prophylaxis. A transverse incision was made proximal to the antecubital fossa. Laterally, the cephalic vein was identified. This was mobilized as far as possible through this incision, double ligated with hemoclips and divided. This was freed up proximally to mobilize to the brachial artery. The vein was easily flushed with heparinized saline. The vein was marked out at anterior surface. Medial in the incision the fascia was opened. The brachial artery was exposed and encircled proximally and distally with vessel loops. Heparin 3000 units given intravenously. The artery was occluded with vessel loops and opened on its anterior surface with 11 blade, extended longitudinally with Lin scissors for 4 mm. A spatulated end-to-side anastomosis was created between the cephalic vein and the brachial artery using running 6-0 Prolene suture circumferentially. Prior to tying the final sutures, the anastomosis was flushed, back bled, and irrigated. Final sutures were tied. Clamps and vessel loops were released. There was a palpable thrill. There was a strong Doppler signal over the fistula and radial and ulnar arteries. The wounds were irrigated. Subcutaneous tissue was approximated with 3-0 Vicryl suture. Skin was closed with running 4-0 Vicryl subcuticular. Steri-Strips and sterile dressings were applied. The counts were correct at the end of the case. The patient tolerated the procedure well and was transferred to recovery room in stable condition. Diskriter Job ID: [id number] Rambo Jade MD DOD:02/20/2021 11:57 A AMBROSIO/mary DOT:02/20/2021 01:26 P Job Number: [id number] Document Number: [id number] cc: Rambo Jade MD [facility], [facility] [address] [address] [facility] [address] Normal [facility] Basic Metabolic Panelon 09-2 Anion gap [Moles/Vol] 4 mmol/L Normal 3-13 [facility] Comment on above: Performed By: #### H GHCT CMP3 #### [address] [address] Calcium [Mass/Vol] 9.0 mg/dL Normal 8.4-10.4 [facility] Comment on above: Performed By: #### H GHCT, CMP3 #### [facility] [address] [place] [address] CO2 [Moles/Vol] 27 mmol/L Normal 22-30 [facility] Comment on above: Performed By: #### H GHCT, CMP3 #### [facility] [address] [place] [address] Glucose [Mass/Vol] 94 mg/dL Normal 70-100 [facility] Comment on above: Performed By: #### H GHCT, CMP3 #### [facility] [address] [place] [address] Urea nitrogen [Mass/Vol] 36 mg/dL High 7-17 [facility] Comment on above: Performed By: #### H GHCT, CMP3 #### [facility] [address] [place] [address] Creatinine [Mass/Vol] 3.00 mg/dL High 0.52-1.25 [facility] Comment on above: Performed By: #### H GHCT, CMP3 #### [facility] [address] [place] [address] GFR/1.73 sq M.predicted among blacks MDRD (S/P/Bld) [Vol rate/Area] 22.6 mL/min/{1.73_m2} Abnormal >60 [facility] Comment on above: Performed By: #### H GHCT, CMP3 #### [facility] [address] [place] [address] GFR/1.73 sq M.predicted among non-blacks MDRD (S/P/Bld) [Vol rate/Area] 19.5 mL/min/{1.73_m2} Abnormal >60 [facility] Comment on above: Result Comment: KDIG O guidelines provide the following GFR categories: Stage GFR(ml/min/1.73 m2) Terms G1 >=90 Normal or high G2 60-89 Mildly decreased* G3a 45-59 Mildly to moderately decreased G3b 30-44 Moderately to severely decreased G4 15-29 Severely decreased G5 <15 Kidney failure *Relative to young adult level. In the absence of evidence of kidney damage, neither GFR category G1 nor G2 fulfill the criteria for CKD. The CKD-EPI equation is validated in individuals 18 years of age and older. Currently the best equation for estimating glomerular filtration rate (GFR) from serum creatinine in children is the Bedside Zayas equation. It is less accurate in patients with extremes of muscle mass, restriction of dietary protein, ingestion of creatine, extra-renal metabolism of creatinine, or treatment with medications that affect renal tubular creatinine secretion. Performed By: #### H CLAUDIA CMP3 #### [place] [address] [address] [place], [place] Chloride [Moles/Vol] 106 mmol/L Normal 98-107 [facility] Comment on above: Performed By: #### H CLAUDIA CMP3 #### [address] [address] [address] [place], [place] Potassium [Moles/Vol] 5.2 mmol/L High 3.5-5.1 [facility] Comment on above: Performed By: #### H CLAUDIA CMP3 #### [address] [place] [address] [address] [place], [place] Sodium [Moles/Vol] 137 mmol/L Normal 135-145 [facility] Comment on above: Performed By: #### H CLAUDIA CMP3 #### [address] [address] [address] [place], [place] Hemogramon 02-14-2021 Erythrocyte distribution width (RBC) [Ratio] 14.5 % Normal 11.5-14.5 [facility] Comment on above: Performed By: #### H CLAUDIA CMP3 #### [address] [place] [address] [address] [place], [place] Hematocrit (Bld) [Volume fraction] 37.7 % Low 40.0-52.0 [facility] Comment on above: Performed By: #### H CLAUDIA CMP3 #### [address] [address] [address] [place], [place] Hemoglobin (Bld) [Mass/Vol] 12.5 g/dL Low 13.0-18.0 [facility] Comment on above: Performed By: #### H CLAUDIA CMP3 #### [address] [address] [address] [place], [place] MCH (RBC) [Entitic mass] 31.4 pg Normal 26.0-34.0 [facility] Comment on above: Performed By: #### H CLAUDIA CMP3 #### [address] [address] [address] [place], [place] MCHC 33.1 % Normal 32.0-36.0 [facility] Comment on above: Performed By: #### H JUANCT CMP3 #### [address] [address] [address] [place], [place] MCV (RBC) [Entitic vol] 95.1 fL Normal 80.0-98.0 S [facility] Comment on above: Performed By: #### H GHCT, CMP3 #### [address] [address] [address] [place], [place] Platelet mean volume (Bld) [Entitic vol] 7.9 fL Normal 7.4-10.4 [facility] Comment on above: Performed By: #### H GHCT, CMP3 #### [address] [address] [address] [place], [place] Platelets (Bld) [#/Vol] 149 10*3/uL Normal 140-440 [facility] Comment on above: Performed By: #### H GHCT, CMP3 #### [address] [address] [address] [place], [place] RBC (Bld) [#/Vol] 3.97 10*6/uL Low 4.40-5.90 [facility] Comment on above: Performed By: #### H GHCT, CMP3 #### [address] [address] [address] [place], [place] WBC (Bld) [#/Vol] 4.6 10*3/uL Normal 3.6-10.7 [facility] Comment on above: Performed By: #### H GHCT, CMP3 #### [address] [address] [address] [place], [place] VL Vessel Map Pre Dialy Acc Lc Up [place] 01-19-2021 VL Vessel Map Pre Dialy Acc Lc Up Ext Patient Name: FRANKLIN BURTON Ultrasound ACCESSION EXAM DATE/TIME PROCEDURE ORDERING PROVIDER [id number] 01/19/2021 16:29 EDT VL Vessel Map Pre Dialy FANG SMALLWOOD Acc Lc Up Ext CPT code 29871 Reason For Exam (VL Vessel Map Pre Dialy Acc Lc Up Ext) encounter for preprocedural examination, chronic kidney disease, stage 4 severe Report [facility] -------- Preoperative Hemodialysis Access Mapping Patient Josephine, : 1945 Study 01/19/2021 Name: Franklin Abdi (75yrs) Date: Patient [id number] Age: 75 Account: [id number] ID: Gender: M Loc: BP: Ordering Physician: Fang Smallwood [employer] Counselor: Sanjana Wilcox Trisha Interpreting Physician: Usman Gold MD -------- Location: [address] -------- Indications: End stage kidney disease. -------- Conclusions 1. Normal arterial inflow involving the right upper extremity and left upper extremity. 2. The right cephalic vein from the wrist to the upper arm and right basilic vein above the elbow demonstrate a diameter suitable for vascular reconstruction. . 3. The left cephalic and left basilic veins above the elbow demonstrate a diameter suitable for vascular reconstruction. . -------- History: Risk factors: Former tobacco use. Hypertension. Obese. Age over 65 years. -------- Study data: Upper extremity evaluation for hemodialysis access. Grayscale 2D imaging, color Doppler imaging, and spectral Doppler Ultrasound Report analysis. Location: Vascular laboratory. Objective: Pre-procedural evaluation for dialysis access surgery. Procedure: A vascular evaluation was performed with the patient in the supine position. Images were obtained using a [employer] E9 vascular ultrasound machine. -------- Arterial flow: + + +------- ----+ +Location +Diameter AP+PSV(cm/sec)+ + + +------- ----+ +R axillary , mid +1.09 cm +72 + + + +------- ----+ +R brachial , distal+0.47 cm +76 + + + +------- ----+ +R brachial , mid +0.42 cm +78 + + + +------- ----+ +R brachial , prox +0.46 cm +89 + + + +------- ----+ +R radial , distal +0.29 cm +55 + + + +------- ----+ +R radial , mid +0.33 cm +42 + + + +------- ----+ +R radial , prox +0.36 cm +53 + + + +------- ----+ +L axillary , mid +0.98 cm +44 + + + +------- ----+ +L brachial , distal+0.58 cm +47 + + + +------- ----+ +L brachial , mid +0.51 cm +50 + + + +------- ----+ +L brachial , prox +0.47 cm +74 + + + +------- ----+ +L radial , distal +0.27 cm +52 + + + +------- ----+ +L radial , mid +0.32 cm +52 + + + +------- ----+ +L radial , prox +0.29 cm +55 + + + +------- ----+ Venous flow and imaging: + +------- + -------+ +Location +Overall+Properties + + +------- + -------+ +R innominate+Patent +Spontaneous; normal augmentation + + +------- + -------+ +R subclavian+Patent +Normal phasicity; spontaneous; normal + + + +augmentation; compressible + + +------- + -------+ +R axillary +Patent +Normal phasicity; spontaneous; normal + + + +augmentation + + +------- + -------+ +R brachial +Patent +Normal phasicity; spontaneous; normal + + + +augmentation; compressible + + +------- + -------+ +R basilic +Patent +Compressible + + +------- + -------+ +R cephalic +Patent +Compressible + + +------- + -------+ +L innominate+Patent +Spontaneous; normal augmentation + + +------- + -------+ +L subclavian+Patent +Normal phasicity; spontaneous; normal + Ultrasound Report + + +augmentation; compressible + + + (more content not included)... Normal [facility] Hemoglobin A1con 08-30-2020 Glucose [Mass/Vol] 120 mg/dL Normal [facility] Comment on above: Performed By: #### P THI #### [facility] Routine Lab [address] [place], [place] [address] HbA1c (Bld) [Mass fraction] 5.8 % High 4.3-5.6 [facility] Comment on above: Performed By: #### P THI #### [facility] [employer] Routine Lab [address] [place], [place] [address] LDL-Chol, Directon 1 LDL-Chol, Direct 110 mg/dL High <100 [facility] Comment on above: Performed By: #### P THI #### [facility] [employer] Routine Lab [address] [place], [place] [address] VLDL Cholesterol NOTI Normal <30 [facility] Comment on above: Performed By: #### P THI #### [facility] [employer] Routine Lab [address] [place], [place] [address] C3 Complementon 08-08-2020 C3 Complement 118 mg/dL Normal 86-166 [facility] Comment on above: Performed By: #### P THI #### [facility] [employer] Routine Lab [address] [place], [place] [address] C4 Complementon 08-08-2020 C4 Complement 16 mg/dL Normal 13-46 [facility] Comment on above: Performed By: #### P THI #### [facility] [employer] Routine Lab [address] [place], [place] [address] PTH, Intacton 08-08-2020 PTH, Intact 103 pg/mL High 15-65 [facility] Comment on above: Performed By: #### P THI #### [facility] Routine Lab [address] [place] [address] Proteinase 3 Abon 08-08-2020 Proteinase 3 Ab <0.2 Normal <1.0 [facility] Comment on above: Performed By: #### P THI #### [facility] Routine Lab [address] [place] [address] Basic Metabolic Panelon 12-0 8 Anion Gap 7 Normal [facility] Comment on above: Performed By: #### B MP3, TROPN, LACT3, HEMDF #### [address] [address] [address] [place], [place] Calcium [Mass/Vol] 9.1 mg/dL Normal 8.4-10.4 [facility] Comment on above: Performed By: #### B MP3, TROPN, LACT3, HEMDF #### [address] [address] [place], [place] CO2 [Moles/Vol] 22 mmol/L Normal 22-30 [facility] Comment on above: Performed By: #### B MP3, TROPN, LACT3, HEMDF #### [address] Glucose [Mass/Vol] 100 mg/dL Normal 70-100 [facility] Comment on above: Performed By: #### B MP3, TROPN, LACT3, HEMDF #### [address] [address] [address] [place], [place] Urea nitrogen [Mass/Vol] 34 mg/dL High 7-20 [facility] Comment on above: Performed By: #### B MP3, TROPN, LACT3, HEMDF #### [address] Creatinine [Mass/Vol] 3.24 mg/dL High 0.52-1.25 [facility] Comment on above: Performed By: #### B MP3, TROPN, LACT3, HEMDF #### [address] [address] [place], [place] GFR/1.73 sq M.predicted among blacks MDRD (S/P/Bld) [Vol rate/Area] 20.7 mL/min/{1.73_m2} Abnormal >60 [facility] Comment on above: Performed By: #### B MP3, TROPN, LACT3, HEMDF #### [address] [address] [place], [place] GFR/1.73 sq M.predicted among non-blacks MDRD (S/P/Bld) [Vol rate/Area] 17.9 mL/min/{1.73_m2} Abnormal >60 [facility] Comment on above: Result Comment: KDIG O guidelines provide the following GFR categories: Stage GFR(ml/min/1.73 m2) Terms G1 >=90 Normal or high G2 60-89 Mildly decreased* G3a 45-59 Mildly to moderately decreased G3b 30-44 Moderately to severely decreased G4 15-29 Severely decreased G5 <15 Kidney failure *Relative to young adult level. In the absence of evidence of kidney damage, neither GFR category G1 nor G2 fulfill the criteria for CKD. The CKD-EPI equation is validated in individuals 18 years of age and older. Currently the best equation for estimating glomerular filtration rate (GFR) from serum creatinine in children is the Bedside Zayas equation. It is less accurate in patients with extremes of muscle mass, restriction of dietary protein, ingestion of creatine, extra-renal metabolism of creatinine, or treatment with medications that affect renal tubular creatinine secretion. Performed By: #### B MP3, TROPN, LACT3, HEMDF #### [address] Potassium [Moles/Vol] 4.6 mmol/L Normal 3.5-5.1 [facility] Comment on above: Performed By: #### B MP3, TROPN, LACT3, HEMDF #### [address] Chloride [Moles/Vol] 104 mmol/L Normal 98-107 [facility] Comment on above: Performed By: #### B MP3, TROPN, LACT3, HEMDF #### [address] [address] Sodium [Moles/Vol] 133 mmol/L Low 135-145 [facility] Comment on above: Performed By: #### B MP3, TROPN, LACT3, HEMDF #### [facility] [address] [place] [address] Anion gap [Moles/Vol] 7 mmol/L [place], [place] Calcium [Mass/Vol] 9.1 mg/dL 8.4 - 10. 4 mg/dL [place], [place] Chloride [Moles/Vol] 104 mmol/L 98 - 10 7 mmol/L [place], [place] CO2 [Moles/Vol] 22 mmol/L 22 - 30 mmol/L [place] [place] Creatinine [Mass/Vol] 3.24 mg/dL High 0.52 - 1.25 mg/dL [place] EGFR IF NonAfrican Sudanese 17.9 mL/min Abnormal >60 [place] Comment on above: KDIGO guidelines pro vide the following GFR categories: Stage GFR(ml/min/1.73 m2) Terms G1 >=90 Normal or high G2 60-89 Mildly decreased* G3a 45-59 Mildly to moderately decreased G3b 30-44 Moderately to severely decreased G4 15-29 Severely decreased G5 <15 Kidney failure *Relative to young adult level. In the absence of evidence of kidney damage, neither GFR category G1 nor G2 fulfill the criteria for CKD. The CKD-EPI equation is validated in individuals 18 years of age and older. Currently the best equation for estimating glomerular filtration rate (GFR) from serum creatinine in children is the Bedside Zayas equation. It is less accurate in patients with extremes of muscle mass, restriction of dietary protein, ingestion of creatine, extra-renal metabolism of creatinine, or treatment with medications that affect renal tubular creatinine secretion. GFR/1.73 sq M predicted among blacks MDRD (S/P/Bld) [Vol rate/Area] 20.7 mL/min/{1.73_m2} Abnormal >60 [place], [place] Glucose [Mass/Vol] 100 mg/dL 70 - 100 mg/dL [place] Interpretation and review of laboratory results Abnormal [place] Potassium [Moles/Vol] 4.6 mmol/L 3.5 - 5.1 mmol/L [place] Sodium [Moles/Vol] 133 mmol/L Low 135 - 145 mmol/L [place] Urea nitrogen [Mass/Vol] 34 mg/dL High 7 - 20 mg/dL [place] Test Performed by [facility], [address] [place] [address] [place] COVID and Resp PCR Panelon 1 06-26-2019 SARS-CoV-2 (COVID-19) RNA SHAE+probe Ql (Unsp spec) COVID and Resp PCR Panel --> Status: F NEGATIVE: No targets were detected by the [employer] Upper Respiratory Pathogens PCR Panel. _ Expected Result: Not Detected The [employer] Upper Respiratory Pathogens PCR Panel can detect the following targets: SARS-CoV-2, Adenovirus, Coronavirus 229E, Coronavirus HKU1, Coronavirus NL63, Coronavirus OC43, Human Metapneumovirus, Human Rhinovirus/Enteroviru s, Influenza A, Influenza B, Parainfluenza Virus 1, Parainfluenza Virus 2, Parainfluenza Virus 3, Parainfluenza Virus 4, Respiratory Syncytial Virus, Bordetella pertussis, Bordetella parapertussis, Chlamydia pneumoniae, Mycoplasma pneumoniae. Negative results do not preclude SARS-CoV-2 infection and should not be used as the sole basis for treatment or other patient management decisions. This assay was developed by [employer] and distributed under an Emergency Use Authorization (EUA) granted by the FDA for the qualitative detection of SARS-CoV-2 nucleic acid. Provider and patient fact sheets can be found at https://www.fda.gov/m edia/499115/download and https://www.fda.gov/m edia/041506/download. Respiratory Pathogens PCR Panel. _ Expected Result: Not Detected The [employer] Upper Respiratory Pathogens PCR Panel can detect the following targets: SARS-CoV-2, Adenovirus, Coronavirus 229E, Coronavirus HKU1, Coronavirus NL63, Coronavirus OC43, Human Metapneumovirus, Human Rhinovirus/Enteroviru s, Influenza A, Influenza B, Parainfluenza Virus 1, Parainfluenza Virus 2, Parainfluenza Virus 3, Parainfluenza Virus 4, Respiratory Syncytial Virus, Bordetella pertussis, Bordetella parapertussis, Chlamydia pneumoniae, Mycoplasma pneumoniae. Negative results do not preclude SARS-CoV-2 infection and should not be used as the sole basis for treatment or other patient management decisions. This assay was developed by [employer] and distributed under an Emergency Use Authorization (EUA) granted by the FDA for the qualitative detection of SARS-CoV-2 nucleic acid. Provider and patient fact sheets can be found at https://www.[facility].gov/ edia/959726/download and https://www.fda.gov/m edia/823969/download. Normal [facility] Comment on above: Performed By: #### H GH[facility], [facility] #### [address] [place] [address] CR Chest Portableon 04-25-20 20 CR Chest Portable Patient Name: FRANKLIN BURTON Diagnostic Radiology ACCESSION EXAM DATE/TIME PROCEDURE ORDERING PROVIDER [id number] 04/25/2020 13:34 EST CR Chest Portable [id number] YOSEPH GARCIA CPT code 65141 Reason For Exam (CR Chest Portable) Generalized fatigue Report PORTABLE CHEST X-RAY CLINICAL INDICATION: Generalized fatigue A portable frontal view of the chest was obtained. COMPARISON: None FINDINGS: The cardiac silhouette is within normal limits. No focal consolidation is seen within the lungs. There is no large pleural effusion or pneumothorax. The bony structures of the chest are unremarkable as visualized. IMPRESSION: No acute cardiopulmonary disease. Report Dictated on Final Dictated: 04/25/2020 1:35 pm Dictating Physician: MD LUQUE JONATHAN R Signed Date and Time: 04/25/2020 1:35 pm Signed by: MD LUQUE JONATHAN R Transcribed Date and Time: 04/25/2020 1:35 Normal [facility] Complete Urinalysison 2019 Appearance (U) Turbid Abnormal Clear [facility] Comment on above: Result Comment: . Performed By: #### C UA2 #### [facility] [address] [place], [place] Bacteria Moderate Abnormal Negative [facility] Comment on above: Result Comment: . Performed By: #### C UA2 #### [facility] [address] [place], [place] Bilirubin,Urine Negative Normal Negative [facility] Comment on above: Result Comment: . Performed By: #### C UA2 #### [facility] [address] [place], [place] Color (U) Yellow Normal Lt. Yellow [facility] Comment on above: Result Comment: . Performed By: #### C UA2 #### [facility] [address] [place], [place] Glucose Ql (U) Normal Normal Normal (<70) [facility] Comment on above: Result Comment: . Performed By: #### C UA2 #### [facility] [address] [place], [place] Ketone,Urine Negative Normal Negative [facility] Comment on above: Result Comment: . Performed By: #### C UA2 #### [facility] [address] [place], [place] Leukocytes,Urine 250 Karla/uL Abnormal Negative [facility] Comment on above: Result Comment: . Performed By: #### C UA2 #### [facility] [address] [place], [place] Mucous Threads Few Normal Negative [facility] Comment on above: Result Comment: . Performed By: #### C UA2 #### [facility] [address] [place], [place] Nitrites,Urine Negative Normal Negative [facility] Comment on above: Result Comment: . Performed By: #### C UA2 #### [facility] [address] [place], [place] Occult Blood,Urine > 1.0 Abnormal Negative [facility] Comment on above: Result Comment: . Performed By: #### C UA2 #### [facility] [address] [place], [place] pH,Urine 5.5 Normal 5.0-8.0 [facility] Comment on above: Result Comment: . Performed By: #### C UA2 #### [facility] [address] [place], [place] Protein (U) [Mass/Vol] 100 mg/dL Abnormal Negative [facility] Comment on above: Result Comment: . Performed By: #### C UA2 #### [facility] [address] [place], [place] RBC, Urine 51 - 100 Abnormal 0-2 [facility] Comment on above: Result Comment: . Performed By: #### C UA2 #### [facility] [address] [place], [place] Specific [place],Urine 1.013 Normal 1.005 - 1.030 [facility] Comment on above: Result Comment: . Performed By: #### C UA2 #### [facility] [address] [place], [place] Urobilinogen,Urine Normal Normal Normal (0-1) [facility] Comment on above: Result Comment: . Performed By: #### C UA2 #### [facility] [address] [place], [place] WBC, Urine 26 - 50 Abnormal 0-5 [facility] Comment on above: Result Comment: . Performed By: #### C UA2 #### [facility] [address] [place], [place] ED Provider Noteon 0 ED Provider Note - Attestation signed by Cornel Lozano MD at 04/25/2020 6:22 PM Emergency Medicine Attending Please see previously documented note. Cornel [facility] Patient: Franklin Burton : 1945 Date of Evaluation: 04/25/2020 ED K[place] Provider: JULIUS Lyles EDcare was supervised by Dr. lozano who independently examined and evaluated the patient. Please see their attestation note for further details. Does this patient come from an ECF, SNF, Rehab, Care Home or other Congregate setting: no (If yes to above patient needs a Covid-19 test) Chief Complaint Chief Complaint Patient presents with ? Fatigue pt states he's been feeling weak for a couple weeks, this morning too weak to walk. Also c/o DUTTA, body aches and has fever 100.6. Had prostate surgery 04/06 and has been having urinary frequency but it stopped last night. [place] Franklin Burton is a 74 y.o. male who presents to the emergency department with reports of generalized fatigue and weakness has been worsening over the past 2 weeks. No modifying factors. Denies known sick contacts. Patient also states that he has some associated diarrhea and myalgia. Patient states he typically has urinary urgency/frequency at his baseline however curiously last night and into this morning he was not voiding as much. 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 He follows with Dr. Tucker for nephrology. He has also seen Dr. zarco during inpatient stay on 04/06/2020 with a cystoscopy performed and transurethral resection of part of his prostate. Patient adamantly denying chest pain, shortness of breath, cough, abdominal pain, diaphoresis or known sick contacts, hematuria dysuria. patient was on chronic Bactrim therapy until about one week ago when he states he was stopped by his physician. ROS: Review of Systems At least 10 systems reviewed and otherwise acutely negative except as in the [place]. Past History Past Medical History: Diagnosis Date ? Allergic rhinitis ? BPH (benign prostatic hyperplasia) ? CHF (congestive heart failure) (HCC) ? Chronic back pain ? Chronic kidney disease ? Compression fracture spring 2014 T12 ? Diabetes mellitus (HCC) while on steroids had high glucose ? GERD (gastroesophageal reflux disease) ? Heart failure (HCC) EF 45% ? 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 Hypertension ? Obesity ? ROYAL (obstructive sleep apnea) ? Osteoarthritis ? Restless legs syndrome ? Status post right hip replacement 03/19/2016 ? Urge incontinence 07/24/2016 ? 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HCC) Past Surgical History: Procedure Laterality Date ? CATARACT REMOVAL Bilateral ? COLONOSCOPY 01/02/2016 Repeat in 3 years, colon polyps, diverticulosis and internal hemorrhoid ? COLONOSCOPY 08/24/2017 by Joana Moreno, repeat in 5 years, diverticulosis, internal hemorrhoid ? ENDOSCOPY, COLON, DIAGNOSTIC ? EYE SURGERY ? HIP ARTHROPLASTY Right 02/05/2016 right hip ? JOINT REPLACEMENT ? KIDNEY BIOPSY 12/2013 ? KNEE ARTHROSCOPY Left 1988 ? ORTHOPEDIC SURGERY Left 1989 knee- left knee mensicus arthroscopic surgery ? PROSTATE BIOPSY 01/11/2014 trus bx- negative ? TURP 04/06/2020 Button TURP. Spear ? UPPER GASTROINTESTINAL ENDOSCOPY 01/02/2016 gasttitis, duodentits, GERD with esophagitis ? UPPER GASTROINTESTINAL ENDOSCOPY 08/22/[address] Bernard, no BE , gastritis, duodenitis and esophagus Social History Socioeconomic History ? Marital status: Spouse name: None ? Number of children: None ? Years of education: None ? Highest education level: None Occupational History ? Occupation: Retired Social Needs ? Financial resource strain: None ? Food insecurity Worry: None Inability: None ? Transportation needs Medical: None Non-medical: None Tobacco Use ? Smoking status: Former Smoker Packs/day: 1.00 Years: 19.00 Pack years: 19.00 Types: Cigarettes Start date: 07/08/1962 Last attempt to quit: 07/26/1981 Years since quittin.7 ? Smokeless tobacco: Never Used Substance and Sexual Activity ? Alcohol use: No Alcohol/week: 0.0 standard drinks Comment: last drinking 2011 ? Drug use: No ? Sexual activity: Yes Partners: Female Comment: Lifestyle ? Physical activity Days per week: None Minutes per session: None ? Stress: None Relationships ? Social connections Talks on phone: None Gets together: None Attends alevism service: None Active member of club or organization: None Attends meetings of clubs or organizations: None Relationship status: None (more content not included)... Normal [facility] Hemogram (CBC) w/Auto Diffon 04-25-2020 Absolute Baso # 0.0 10*3/uL 0 - 0.2 10*3/uL [place] Absolute Neut # 4.1 10*3/uL 1.8 - 7 10*3/uL [place] Basophils/100 WBC (Bld) 0.7 % 0 - 2 % [place] Eosinophils (Bld) [#/Vol] 0.1 10*3/uL 0 - 0.5 10*3/uL [place] Eosinophils/100 WBC (Bld) 1.2 % 1 - 6 % [place] Erythrocyte distribution width (RBC) [Ratio] 14.8 % High 11.5 - 14.5 % [place] Granulocytes/100 WBC (Bld) 78.0 % 40 - 80 % [place] Hematocrit (Bld) [Volume fraction] 31.6 % Low 40 - 52 % [place] Hemoglobin (Bld) [Mass/Vol] 10.7 g/dL Low 13 - 18 g/dL [place] Interpretation and review of laboratory results Abnormal [place] Lymphocytes (Bld) [#/Vol] 0.6 10*3/uL Low 1 - 4.3 10*3/uL [place] Lymphocytes/100 WBC (Bld) 11.5 % Low 20 - 40 % [place] MCH (RBC) [Entitic mass] 30.5 pg 26 - 34 pg [place] MCHC (RBC) [Mass/Vol] 33.7 % 32 - 36 % [place] MCV (RBC) [Entitic vol] 90.4 fL 80 - 98 fL [place] Monocytes (Bld) [#/Vol] 0.5 10*3/uL 0 - 0.8 10*3/uL [place] Monocytes/100 WBC (Bld) 8.6 % 2 - 10 % [place] Platelet mean volume (Bld) [Entitic vol] 7.4 fL 7.4 - 10.4 fL [place] Platelets (Bld) [#/Vol] 184 10*3/uL 140 - 440 10*3/uL [place] RBC (Bld) [#/Vol] 3.50 10*6/uL Low 4.4 - 5.9 10*6/uL [place] WBC (Bld) [#/Vol] 5.3 10*3/uL 3.6 - 10.7 10*3/uL [place] Test Performed by [facility], [address] [place] [id number] [place] [address] Hemogram w/ Autodiffon 04-25 Abs Baso Cnt 0.0 10*3/uL Normal 0.0-0.2 [facility] Comment on above: Performed By: #### B MP3, TROPN, LACT3, HEMDF #### [address] [address] Abs Neutrophile Cnt 4.1 10*3/uL Normal 1.8-7.0 [facility] Comment on above: Performed By: #### B MP3, TROPN, LACT3, HEMDF #### [address] [address] Basophils/100 WBC (Bld) 0.7 % Normal 0.0-2.0 S [facility] Comment on above: Performed By: #### B MP3, TROPN, LACT3, HEMDF #### [address] [address] Eosinophils (Bld) [#/Vol] 0.1 10*3/uL Normal 0.0-0.5 [facility] Comment on above: Performed By: #### B MP3, TROPN, LACT3, HEMDF #### [address] [address] Eosinophils/100 WBC (Bld) 1.2 % Normal 1.0-6.0 [facility] Comment on above: Performed By: #### B MP3, TROPN, LACT3, HEMDF #### [address] [place], [place] Erythrocyte distribution width (RBC) [Ratio] 14.8 % High 11.5-14.5 [facility] Comment on above: Performed By: #### B MP3, TROPN, LACT3, HEMDF #### [address] [place], [place] Granulocytes/100 WBC (Bld) 78.0 % Normal 40.0-80.0 [facility] Comment on above: Performed By: #### B MP3, TROPN, LACT3, HEMDF #### [address] [place], [place] Hematocrit (Bld) [Volume fraction] 31.6 % Low 40.0-52.0 [facility] Comment on above: Performed By: #### B MP3, TROPN, LACT3, HEMDF #### [address] [place], [place] Hemoglobin (Bld) [Mass/Vol] 10.7 g/dL Low 13.0-18.0 [facility] Comment on above: Performed By: #### B MP3, TROPN, LACT3, HEMDF #### [address] [place], [place] Lymphocytes (Bld) [#/Vol] 0.6 10*3/uL Low 1.0-4.3 [facility] Comment on above: Performed By: #### B MP3, TROPN, LACT3, HEMDF #### [address] [place], [place] Lymphocytes/100 WBC (Bld) 11.5 % Low 20.0-40.0 [facility] Comment on above: Performed By: #### B MP3, TROPN, LACT3, HEMDF #### [address] [place], [place] MCH (RBC) [Entitic mass] 30.5 pg Normal 26.0-34.0 [facility] Comment on above: Performed By: #### B MP3, TROPN, LACT3, HEMDF #### [address] [place] MCHC 33.7 % Normal 32.0-36.0 [facility] Comment on above: Performed By: #### B MP3, TROPN, LACT3, HEMDF #### [address] [place], [place] MCV (RBC) [Entitic vol] 90.4 fL Normal 80.0-98.0 S [facility] Comment on above: Performed By: #### B MP3, TROPN, LACT3, HEMDF #### [address] [place], [place] Monocytes (Bld) [#/Vol] 0.5 10*3/uL Normal 0.0-0.8 [facility] Comment on above: Performed By: #### B MP3, TROPN, LACT3, HEMDF #### [address] [address] [place], [place] Monocytes/100 WBC (Bld) 8.6 % Normal 2.0-10.0 S [facility] Comment on above: Performed By: #### B MP3, TROPN, LACT3, HEMDF #### [address] [place] Platelet mean volume (Bld) [Entitic vol] 7.4 fL Normal 7.4-10.4 [facility] Comment on above: Performed By: #### B MP3, TROPN, LACT3, HEMDF #### [address] [place], [place] Platelets (Bld) [#/Vol] 184 10*3/uL Normal 140-440 [facility] Comment on above: Performed By: #### B MP3, TROPN, LACT3, HEMDF #### [address] [address] [place], [place] RBC (Bld) [#/Vol] 3.50 10*6/uL Low 4.40-5.90 [facility] Comment on above: Performed By: #### B MP3, TROPN, LACT3, HEMDF #### [address] [place] [address] WBC (Bld) [#/Vol] 5.3 10*3/uL Normal 3.6-10.7 [facility] Comment on above: Performed By: #### B MP3, TROPN, LACT3, HEMDF #### [facility] [address] [place] [address] Lactic Acidon 04-25-2020 Lactate [Moles/Vol] 0.7 mmol/L Normal 0.7-2.0 [facility] Comment on above: Performed By: #### B MP3, TROPN, LACT3, HEMDF #### [address] [address] Lactic Acid, Plasmaon 2019 Lactate [Moles/Vol] 0.7 mmol/L 0.7 - 2 mmol/L [place] Test Performed by [id number] [place] [address] Troponin Ion 04-25-2020 Troponin I.cardiac [Mass/Vol] ng/mL Normal 0.000-0.034 [facility] Comment on above: Result Comment: . Performed By: #### B MP3, TROPN, LACT3, HEMDF #### [address] [address] Troponin x1on 04-25-2020 Troponin I.cardiac [Mass/Vol] ng/mL 0 - 0.034 ng/mL [place] Comment on above: . Test Performed by [facility], [address] [place] [id number] [place] [address] Urinalysison 04-25-2020 Appearance (U) Turbid Abnormal Clear [place] Comment on above: . Bacteria, UA Moderate Abnormal Negative /[HPF] [place] Comment on above: . Bilirubin Urine Negative Negative mg/dL [place] Comment on above: . Color (U) Yellow Lt. Yellow NA [place] Comment on above: . Glucose, Ur Normal Normal (<70) mg/dL [place] Comment on above: . Interpretation and review of laboratory results Abnormal [place] Ketones Ql (U) Negative Negative mg/dL [place] Comment on above: . LEUKOCYTES, UA 250 Abnormal Negative Karla/uL [place] Comment on above: . Mucous Threads Few Negative /[LPF] [place] Comment on above: . Nitrite, Urine Negative Negative NA [place] Comment on above: . Occult Blood,Urine >1.0 Abnormal Negative mg/dL [place] Comment on above: . pH (U) 5.5 [pH] [place] Comment on above: . Protein (U) [Mass/Vol] 100 mg/dL Abnormal Negative [place] Comment on above: . RBC (U) [#/Vol] 51-100 Abnormal 0 - 2 /[HPF] [place], [place] Comment on above: . Specific [place], Urine 1.013 M [place], [place] Comment on above: . Urobilinogen, Urine Normal Normal ( 0-1) mg/dL [place] Comment on above: . WBC, UA 26-50 Abnormal 0 - 5 /[HPF] [place], [place] Comment on above: . Test Performed by [address] [address] [place] XR CHEST PORTABLEon 04-25-20 Patient Name: FRANKLIN BURTON Diagnostic Radiology ACCESSION EXAM DATE/TIME PROCEDURE ORDERING PROVIDER [id number] 04/25/2020 13:34 EST CR Chest Portable [id number] YOSEPH GARCIA CPT code 15072 Reason For Exam (CR Chest Portable) Generalized fatigue Report PORTABLE CHEST X-RAY CLINICAL INDICATION: Generalized fatigue A portable frontal view of the chest was obtained. COMPARISON: None FINDINGS: The cardiac silhouette is within normal limits. No focal consolidation is seen within the lungs. There is no large pleural effusion or pneumothorax. The bony structures of the chest are unremarkable as visualized. IMPRESSION: No acute cardiopulmonary disease. Report Dictated on --- Final --- Dictated: 04/25/2020 1:35 pm Dictating Physician: MD LUQUE JONATHAN R Signed Date and Time: 04/25/2020 1:35 pm Signed by: MD LUQUE JONATHAN R Transcribed Date and Time: 04/25/2020 1:35 [facility] Incoming Radiology Results From [facility] - 04/25/2020 1:36 PM EST [id number] Radiology ACCESSION EXAM DATE/TIME PROCEDURE ORDERING PROVIDER [id number] 04/25/2020 13:34 EST CR Chest Portable [id number] YOSEPH GARCIA CPT code 14133 Reason For Exam (CR Chest Portable) Generalized fatigue Report PORTABLE CHEST X-RAY CLINICAL INDICATION: Generalized fatigue A portable frontal view of the chest was obtained. COMPARISON: None FINDINGS: The cardiac silhouette is within normal limits. No focal consolidation is seen within the lungs. There is no large pleural effusion or pneumothorax. The bony structures of the chest are unremarkable as visualized. IMPRESSION: No acute cardiopulmonary disease. Report Dictated on --- Final --- Dictated: 04/25/2020 1:35 pm Dictating Physician: MD LUQUE JONATHAN R Signed Date and Time: 04/25/2020 1:35 pm Signed by: MD LUQUE JONATHAN R Transcribed Date and Time: 04/25/2020 1:35 [place] Basic Metabolic Panelon 11-1 Anion Gap 9 Normal [facility] Comment on above: Performed By: #### B MP3 #### [facility] [address] [place] [address] Calcium [Mass/Vol] 9.1 mg/dL Normal 8.4-10.4 [facility] Comment on above: Performed By: #### B MP3 #### [facility] [address] [place] [address] CO2 [Moles/Vol] 24 mmol/L Normal 22-30 [facility] Comment on above: Performed By: #### B MP3 #### [facility] [address] [place], [place] Glucose [Mass/Vol] 98 mg/dL Normal 70-100 [facility] Comment on above: Performed By: #### B MP3 #### [facility] [address] [place], [place] Urea nitrogen [Mass/Vol] 37 mg/dL High 7-20 [facility] Comment on above: Performed By: #### B MP3 #### [facility] [address] [place], [place] Creatinine [Mass/Vol] 2.92 mg/dL High 0.52-1.25 [facility] Comment on above: Performed By: #### B MP3 #### [facility] [address] [place] [address] GFR/1.73 sq M.predicted among blacks MDRD (S/P/Bld) [Vol rate/Area] 23.5 mL/min/{1.73_m2} Abnormal >60 [facility] Comment on above: Performed By: #### B MP3 #### [facility] [address] [place], [place] GFR/1.73 sq M.predicted among non-blacks MDRD (S/P/Bld) [Vol rate/Area] 20.3 mL/min/{1.73_m2} Abnormal >60 [facility] Comment on above: Result Comment: KDIG O guidelines provide the following GFR categories: Stage GFR(ml/min/1.73 m2) Terms G1 >=90 Normal or high G2 60-89 Mildly decreased* G3a 45-59 Mildly to moderately decreased G3b 30-44 Moderately to severely decreased G4 15-29 Severely decreased G5 <15 Kidney failure *Relative to young adult level. In the absence of evidence of kidney damage, neither GFR category G1 nor G2 fulfill the criteria for CKD. The CKD-EPI equation is validated in individuals 18 years of age and older. Currently the best equation for estimating glomerular filtration rate (GFR) from serum creatinine in children is the Bedside Zayas equation. It is less accurate in patients with extremes of muscle mass, restriction of dietary protein, ingestion of creatine, extra-renal metabolism of creatinine, or treatment with medications that affect renal tubular creatinine secretion. Performed By: #### B MP3 #### [facility] [address] [place] [address] Potassium [Moles/Vol] 5.0 mmol/L Normal 3.5-5.1 [facility] Comment on above: Performed By: #### B MP3 #### [facility] [address] [place] [address] Sodium [Moles/Vol] 137 mmol/L Normal 135-145 [facility] Comment on above: Performed By: #### B MP3 #### [facility] [address] [place] [address] Chloride [Moles/Vol] 104 mmol/L Normal 98-107 [facility] Comment on above: Performed By: #### B MP3 #### [facility] [address], [place] Anion gap [Moles/Vol] 9 mmol/L [place], [place] Calcium [Mass/Vol] 9.1 mg/dL 8.4 - 10. 4 mg/dL [place] Chloride [Moles/Vol] 104 mmol/L 98 - 10 7 mmol/L [place] CO2 [Moles/Vol] 24 mmol/L 22 - 30 mmol/L [place] Creatinine [Mass/Vol] 2.92 mg/dL High 0.52 - 1.25 mg/dL [place] EGFR IF NonAfrican Sudanese 20.3 mL/min Abnormal >60 [place] Comment on above: KDIGO guidelines pro vide the following GFR categories: Stage GFR(ml/min/1.73 m2) Terms G1 >=90 Normal or high G2 60-89 Mildly decreased* G3a 45-59 Mildly to moderately decreased G3b 30-44 Moderately to severely decreased G4 15-29 Severely decreased G5 <15 Kidney failure *Relative to young adult level. In the absence of evidence of kidney damage, neither GFR category G1 nor G2 fulfill the criteria for CKD. The CKD-EPI equation is validated in individuals 18 years of age and older. Currently the best equation for estimating glomerular filtration rate (GFR) from serum creatinine in children is the Bedside Zayas equation. It is less accurate in patients with extremes of muscle mass, restriction of dietary protein, ingestion of creatine, extra-renal metabolism of creatinine, or treatment with medications that affect renal tubular creatinine secretion. GFR/1.73 sq M predicted among blacks MDRD (S/P/Bld) [Vol rate/Area] 23.5 mL/min/{1.73_m2} Abnormal >60 [place], [place] Glucose [Mass/Vol] 98 mg/dL 70 - 100 mg/dL [place] Interpretation and review of laboratory results Abnormal [place] Potassium [Moles/Vol] 5.0 mmol/L 3.5 - 5.1 mmol/L [place] Sodium [Moles/Vol] 137 mmol/L 135 - 145 mmol/L [place] Urea nitrogen [Mass/Vol] 37 mg/dL High 7 - 20 mg/dL [place] Test Performed by [facility], [address] [place] [address] [place], [place] Glucose,Bedsideon 04-06-2020 Glucose [Mass/Vol] 124 mg/dL High 70-100 [facility] Comment on above: Result Comment: Test performed by glucose meter. Results may be 10%-15% lower than serum/plasma values. (CLIA ID [id number]) Performed By: #### B GLU #### [address] [address] Op Noteon 04-06-2020 Op Note PreOp Dx BPH with obstruction PostOp Dx Same Operation Cystoscopy, Transurethral resection of Prostate Surgeon Bravo Zarco MD Assist CATHIE Santos EBL 20cc Drains None Osorio [address] 30[address] balloon Specimen None Condition To PACU Indications This is a 74 y.o. pt who presents with BPH with obstruction. After a thorough discussion of his risks, benefits and treatment options he does wish to proceed forward with surgical intervention. Discussed Risks, expectations. Risks include, but are not limited to Bleeding, infection, failure of treatment,need for additional procedures, [place], stroke, embolus, DVT and . Patient understands. Informed consent obtained. Operation Patient was brought to the operating room. A thorough time out was performed and all present were in agreement. Patient was placed on OR table and anesthesia induced. Airways and lines were maintained by anesthesia team. Patient was placed into dorsal lithotomy position. Pressure points were padded. Prepped and draped in usual sterile fashion. A 22 fr ACMI cystourethroscope was inserted through the male urethra. The entire bladder was inspected using a 30 degree angled lens. Next the cystourethroscope was exchanged for a continuous flow resectoscope sheath. This was placed using the guided obturator. Using the bipolar button, the prostate was resected carefully. This was begun starting at the bladder neck-the enlarged median lobe was resected initially, being sure the ureteral orifices were out of the resection area and were safe. Then created trough at the 6 O'Clock position to near Veru. Then treated the lateral lobes working from bladder neck distally to the verumontanum.Care was taken to avoid resection distally to the verumontanum to avoid injury to the external urethral sphincter. Hemostasis was maintained during the procedure using the cautery function. Lastly the anterior tissue was resected down to near the level of the prostatic capsule. After achieving hemostasis the bladder was irrigated and all cautery artifact and debris was evacuated from the bladder. On re-inspection, any bleeding was point cauterized until hemostasis was excellent. The resectoscope was withdrawn and a [address] catheter with 30 ml balloon was inserted. The bladder was irrigated and the urine found to be light pink/ clear. The patient will be admitted for observation. [facility] PO[facility] Glucoseon 04-06-2020 Glucose [Mass/Vol] 124 mg/dL High 70 - 100 mg/dL [place] Comment on above: Test performed by VOSS ucose meter. Results may be 10%-15% lower than serum/plasma values. (CLIA ID [id number]) Interpretation and review of laboratory results Abnormal [place] Test [facility] by [facility], [address] [place] [address] [place] CULTURE URINEon 03-16-2020 CULTURE URINE 1 Organism Morganell a morganii >100,000 CFU/ml For serious infections outside of the urinary tract, third generation cephalosporins may not be effective, even if test results indicate the organism is sensitive. 1 Organism Antibiotic Result Intrp Ampicillin(OLAYINKA) R Cefazolin(OLAYINKA) R Ceftriaxone(OLAYINKA) <= 1 S Cefepime(OLAYINKA) <= 1 S Aztreonam(OLAYINKA) <= 1 S Amoxicillin/Clavulani c Acid(OLAYINKA) R Ampicillin/Sulbactam( OLAYINKA) R Pip/Tazobactam(OLAYINKA) <= 4 S Meropenem(OLAYINKA) <= 0.25 S Ciprofloxacin(OLAYINKA) <= 0.25 S Trimeth/Sulfa(OLAYINKA) >= 320 R Nitrofurantoin(OLAYINKA) R Gentamicin(OLAYINKA) <= 1 S Amikacin(OLAYINKA) <= 2 S Normal [facility] Comment on above: Order Comment: Speci men Source Comment:Urine, clean catch Performed By: #### H ISACC TAYLOR3 #### [facility] [address], [place] Comp Metabolic Panelon 03-14 ALP [Catalytic activity/Vol] 58 U/L Normal 38-126 [facility] Comment on above: Performed By: #### H ISACC TAYLOR3 #### [facility] [address], [place] ALT [Catalytic activity/Vol] 15 U/L Normal 0-49 [facility] Comment on above: Result Comment: The ALT test is performed by an updated assay method. Please note that the reference intervals have been changed and are now sex specific. Performed By: #### H ISACC TAYLOR3 #### [facility] [address], [place] Anion Gap 7 Normal [facility] Comment on above: Performed By: #### H ISACC TAYLOR3 #### [facility] [address] [place] [address] AST [Catalytic activity/Vol] 22 U/L Normal 15-46 [facility] Comment on above: Performed By: #### H GHCT, CMP3 #### [facility] [address] [place] [address] Bilirubin [Mass/Vol] 0.4 mg/dL Normal 0.2-1.3 [facility] Comment on above: Performed By: #### H GHCT CMP3 #### [facility] [address] [place] [address] Calcium [Mass/Vol] 9.4 mg/dL Normal 8.4-10.4 [facility] Comment on above: Performed By: #### H GHCT CMP3 #### [facility] [address] [place] [address] CO2 [Moles/Vol] 29 mmol/L Normal 22-30 [facility] Comment on above: Performed By: #### H GHCT CMP3 #### [facility] [address] [place] [address] Glucose [Mass/Vol] 100 mg/dL Normal 70-100 [facility] Comment on above: Performed By: #### H GHCT CMP3 #### [facility] [address] [place] [address] Protein [Mass/Vol] 6.5 g/dL Normal 6.3-8.2 [facility] Comment on above: Performed By: #### H GHCT CMP3 #### [facility] [address] [place] [address] Urea nitrogen [Mass/Vol] 36 mg/dL High 7-20 [facility] Comment on above: Performed By: #### H GHCT, CMP3 #### [facility] [address] [place] [address] Creatinine [Mass/Vol] 3.46 mg/dL High 0.52-1.25 [facility] Comment on above: Performed By: #### H GHCT CMP3 #### [facility] [address] [place] [address] GFR/1.73 sq M.predicted among blacks MDRD (S/P/Bld) [Vol rate/Area] 19.1 mL/min/{1.73_m2} Abnormal >60 [facility] Comment on above: Performed By: #### H GHCT CMP3 #### [facility] [address] [place] [address] GFR/1.73 sq M.predicted among non-blacks MDRD (S/P/Bld) [Vol rate/Area] 16.5 mL/min/{1.73_m2} Abnormal >60 [facility] Comment on above: Result Comment: KDIG O guidelines provide the following GFR categories: Stage GFR(ml/min/1.73 m2) Terms G1 >=90 Normal or high G2 60-89 Mildly decreased* G3a 45-59 Mildly to moderately decreased G3b 30-44 Moderately to severely decreased G4 15-29 Severely decreased G5 <15 Kidney failure *Relative to young adult level. In the absence of evidence of kidney damage, neither GFR category G1 nor G2 fulfill the criteria for CKD. The CKD-EPI equation is validated in individuals 18 years of age and older. Currently the best equation for estimating glomerular filtration rate (GFR) from serum creatinine in children is the Bedside Zayas equation. It is less accurate in patients with extremes of muscle mass, restriction of dietary protein, ingestion of creatine, extra-renal metabolism of creatinine, or treatment with medications that affect renal tubular creatinine secretion. Performed By: #### H GHCT CMP3 #### [facility] [employer] [place] [address], [place] Albumin [Mass/Vol] 3.9 g/dL Normal 3.5-5.0 [facility] Comment on above: Performed By: #### H GHCT CMP3 #### [facility] [employer] [facility] [address], [place] Chloride [Moles/Vol] 103 mmol/L Normal 98-107 [facility] Comment on above: Performed By: #### H GHCT, CMP3 #### [place] [address] [place] [address] Potassium [Moles/Vol] 5.3 mmol/L High 3.5-5.1 [facility] Comment on above: Performed By: #### H GHCT, CMP3 #### [facility] [address], [place] Sodium [Moles/Vol] 140 mmol/L Normal 135-145 [facility] Comment on above: Performed By: #### H GHCT, CMP3 #### [facility] [address], [place] Comprehensive Metabolic Pane jase 03-14-2020 Albumin [Mass/Vol] 3.9 g/dL 3.5 - 5 g/dL [place], [place] ALP [Catalytic activity/Vol] 58 U/L 38 - 126 U/L [place] ALT [Catalytic activity/Vol] 15 U/L 0 - 49 U/L [place] Comment on above: The ALT test is perf ormed by an updated assay method. Please note that the reference intervals have been changed and are now sex specific. Anion gap [Moles/Vol] 7 mmol/L [place], [place] AST [Catalytic activity/Vol] 22 U/L 15 - 46 U/L [place] Bilirubin Ql (U) 0.4 mg/dL 0.2 - 1.3 mg/dL [place] Calcium [Mass/Vol] 9.4 mg/dL 8.4 - 10. 4 mg/dL [place] Chloride [Moles/Vol] 103 mmol/L 98 - 10 7 mmol/L [place] CO2 [Moles/Vol] 29 mmol/L 22 - 30 mmol/L [place] Creatinine [Mass/Vol] 3.46 mg/dL High 0.52 - 1.25 mg/dL [place] EGFR IF NonAfrican [place]ese 16.5 mL/min Abnormal >60 [place] Comment on above: KDIGO guidelines pro vide the following GFR categories: Stage GFR(ml/min/1.73 m2) Terms G1 >=90 Normal or high G2 60-89 Mildly decreased* G3a 45-59 Mildly to moderately decreased G3b 30-44 Moderately to severely decreased G4 15-29 Severely decreased G5 <15 Kidney failure *Relative to young adult level. In the absence of evidence of kidney damage, neither GFR category G1 nor G2 fulfill the criteria for CKD. The CKD-EPI equation is validated in individuals 18 years of age and older. Currently the best equation for estimating glomerular filtration rate (GFR) from serum creatinine in children is the Bedside Zayas equation. It is less accurate in patients with extremes of muscle mass, restriction of dietary protein, ingestion of creatine, extra-renal metabolism of creatinine, or treatment with medications that affect renal tubular creatinine secretion. GFR/1.73 sq M predicted among blacks MDRD (S/P/Bld) [Vol rate/Area] 19.1 mL/min/{1.73_m2} Abnormal >60 [place], [place] Glucose [Mass/Vol] 100 mg/dL 70 - 100 mg/dL [place] Interpretation and review of laboratory results Abnormal [place] Potassium [Moles/Vol] 5.3 mmol/L High 3.5 - 5.1 mmol/L [place] Protein [Mass/Vol] 6.5 g/dL 6.3 - 8.2 g/dL [place] Sodium [Moles/Vol] 140 mmol/L 135 - 145 mmol/L [place] Urea nitrogen [Mass/Vol] 36 mg/dL High 7 - 20 mg/dL [place] Test Performed by [facility], [address] [place] [address] [place] Hemoglobin AND Hematocriton 03-14-2020 Hematocrit (Bld) [Volume fraction] 32.5 % Low 40.0-52.0 [facility] Comment on above: Performed By: #### H CT, CMP3 #### [address] [address] Hemoglobin (Bld) [Mass/Vol] 10.9 g/dL Low 13.0-18.0 [facility] Comment on above: Performed By: #### H JUANCT, CMP3 #### [address] [address] Hemoglobin and Hematocrit, B loodon 03-14-2020 Hematocrit (Bld) [Volume fraction] 32.5 % Low 40 - 52 % [place] Hemoglobin (Bld) [Mass/Vol] 10.9 g/dL Low 13 - 18 g/dL [place] Interpretation and review of laboratory results Abnormal [place] Test Performed by [address] [address] [place] Basic Metabolic Panelon 07-2 Anion gap [Moles/Vol] 7 mmol/L [place] Calcium [Mass/Vol] 8.4 mg/dL 8.4 - 10. 4 mg/dL [place] CO2 [Moles/Vol] 18 mmol/L Low 22 - 30 mmol/L [place] Creatinine [Mass/Vol] 3.6 mg/dL High 0.52 - 1.25 mg/dL [place] EGFR IF NonAfrican Sudanese 15.8 mL/min Abnormal >60 [place] Comment on above: KDIGO guidelines pro vide the following GFR categories: Stage GFR(ml/min/1.73 m2) Terms G1 >=90 Normal or high G2 60-89 Mildly decreased* G3a 45-59 Mildly to moderately decreased G3b 30-44 Moderately to severely decreased G4 15-29 Severely decreased G5 <15 Kidney failure *Relative to young adult level. In the absence of evidence of kidney damage, neither GFR category G1 nor G2 fulfill the criteria for CKD. The CKD-EPI equation is validated in individuals 18 years of age and older. Currently the best equation for estimating glomerular filtration rate (GFR) from serum creatinine in children is the Bedside Zayas equation. It is less accurate in patients with extremes of muscle mass, restriction of dietary protein, ingestion of creatine, extra-renal metabolism of creatinine, or treatment with medications that affect renal tubular creatinine secretion. GFR/1.73 sq M predicted among blacks MDRD (S/P/Bld) [Vol rate/Area] 18.3 mL/min/{1.73_m2} Abnormal >60 [place] Glucose [Mass/Vol] 153 mg/dL High 70 - 100 mg/dL [place] Interpretation and review of laboratory results Abnormal [place] Potassium [Moles/Vol] 4.8 mmol/L 3.5 - 5.1 mmol/L [place] Sodium [Moles/Vol] 135 mmol/L 135 - 145 mmol/L [place] Urea nitrogen [Mass/Vol] 67 mg/dL High 7 - 20 mg/dL [place] Test Performed by [facility], [address] [place] [address] [place] Anion gap [Moles/Vol] 6 mmol/L [place] Calcium [Mass/Vol] 8.5 mg/dL 8.4 - 10. 4 mg/dL [place] CO2 [Moles/Vol] 20 mmol/L Low 22 - 30 mmol/L [place] Creatinine [Mass/Vol] 3.65 mg/dL High 0.52 - 1.25 mg/dL [place] EGFR IF NonAfrican [place]ese 15.5 mL/min Abnormal >60 [place] Comment on above: KDIGO guidelines pro vide the following GFR categories: Stage GFR(ml/min/1.73 m2) Terms G1 >=90 Normal or high G2 60-89 Mildly decreased* G3a 45-59 Mildly to moderately decreased G3b 30-44 Moderately to severely decreased G4 15-29 Severely decreased G5 <15 Kidney failure *Relative to young adult level. In the absence of evidence of kidney damage, neither GFR category G1 nor G2 fulfill the criteria for CKD. The CKD-EPI equation is validated in individuals 18 years of age and older. Currently the best equation for estimating glomerular filtration rate (GFR) from serum creatinine in children is the Bedside Zayas equation. It is less accurate in patients with extremes of muscle mass, restriction of dietary protein, ingestion of creatine, extra-renal metabolism of creatinine, or treatment with medications that affect renal tubular creatinine secretion. GFR/1.73 sq M predicted among blacks MDRD (S/P/Bld) [Vol rate/Area] 18.0 mL/min/{1.73_m2} Abnormal >60 [place] Glucose [Mass/Vol] 142 mg/dL High 70 - 100 mg/dL [place] Potassium [Moles/Vol] 5.4 mmol/L High 3.5 - 5.1 mmol/L [place] Sodium [Moles/Vol] 134 mmol/L Low 135 - 145 mmol/L [place] Urea nitrogen [Mass/Vol] 68 mg/dL High 7 - 20 mg/dL [place] CBCon 12-15-2019 Erythrocyte distribution width (RBC) [Ratio] 19.8 % High 11.5 - 14.5 % [place] Hematocrit (Bld) [Volume fraction] 32.7 % Low 40 - 52 % [place] Hemoglobin (Bld) [Mass/Vol] 11.0 g/dL Low 13 - 18 g/dL [place] Interpretation and review of laboratory results Abnormal [place] MCH (RBC) [Entitic mass] 29.1 pg 26 - 34 pg [place] MCHC (RBC) [Mass/Vol] 33.7 % 32 - 36 % [place] MCV (RBC) [Entitic vol] 86.4 fL 80 - 98 fL [place], [place] Platelet mean volume (Bld) [Entitic vol] 7.9 fL 7.4 - 10.4 fL [place] Platelets (Bld) [#/Vol] 81 10*3/uL Low 140 - 440 10*3/uL [place] RBC (Bld) [#/Vol] 3.78 10*6/uL Low 4.4 - 5.9 10*6/uL [place] WBC (Bld) [#/Vol] 7.1 10*3/uL 3.6 - 10.7 10*3/uL [place] Test Performed by [facility], [address] [place] [address] [place] Metabolic Panelon 12-15-2019 Chloride [Moles/Vol] 109 mmol/L High 98 - 10 7 mmol/L [place] Otheron 12-15-2019 Interpretation and review of laboratory results Abnormal [place] Test Performed by [facility], [address] [place] [address] [place] POCT Glucoseon 12-15-2019 Glucose [Mass/Vol] 157 mg/dL High 70 - 100 mg/dL [place] Comment on above: Test performed by [facility] ucose meter. Results may be 10%-15% lower than serum/plasma values. (CLIA ID [id number]) Interpretation and review of laboratory results Abnormal [facility] Test Performed by [facility], [address] [place] [address] [place] Glucose [Mass/Vol] 136 mg/dL High 70 - 100 mg/dL [facility] Comment on above: Test performed by [facility] ucose meter. Results may be 10%-15% lower than serum/plasma values. (CLIA ID [id number]) Glucose [Mass/Vol] 191 mg/dL High 70 - 100 mg/dL [facility] Comment on above: Test performed by [facility] ucose meter. Results may be 10%-15% lower than serum/plasma values. (CLIA ID [id number]) Interpretation and review of laboratory results Abnormal [facility] Test Performed by [facility], [facility] [place] [address] [facility] Add On Lab Teston 12-14-2019 Sodium [Moles/Vol] Accepted [facility] Comment on above: Specimen available & acceptable for analysis. ECHO Pharmacological Stress Imagingon 12-14-2019 James, [facility] Incoming Cardiology Results From [facility] - 12/14/2019 3:49 PM EDT STRESS ECHOCARDIOGRAM Dobutamine PATIENT: Franklin Burton STUDY DATE: 12/14/2019 Jin : 1945 AGE: 74 HT/WT: 167.6 cm (66 88.5 kg (194.6 in) lb) GENDER: M BP: 138 / 97 LOCATION: [facility] PATIENT Observation main STATUS: *ORDERING PHYSICIAN: * Angelia Hinson *SUPERVISING PHYSICIAN: * José Miguel Casanova, *RN: * Keri Pleitez RN MD *READING PHYSICIAN: * José Miguel Branch, *INSPECTOR ADVANCED COMPOSITE: * Nubia CAST, ROSMERY, CHRISTOFER Cevallos [facility] [[email or web address]] -------- INDICATIONS: (Chest pain). -------- HISTORY: Renal disease. Last Calcium Channel Richy taken 12/13/2019 08:00 AM Tobacco use former ROYAL, GERD, Wegeners glomerulernephritis Diabetic insulin dependent Medications: Insulin. Allergies: No known allergies. Patient is NPO per policy. Hemoglobin, potassium and/or troponin x2 are within policy guidelines -------- CONCLUSIONS SUMMARY: 1. Normal study after pharmacologic stress. The stress electrocardiography portion appears to be a false positive. Sensitivity of this study is limited due to submaximal stress. 2. Peak dose: LV size is appropriately decreased from the prior stage. LV global systolic function is hyperdynamic. No evidence for new LV regional wall motion abnormalities. 3. Stress echo: There is no evidence for stress-induced ischemia. 4. Stress ECG conclusions: The stress ECG is equivocal for ischemia. 5. Left ventricle: Systolic function is normal by the biplane method of disks. The estimated ejection fraction is 60%. -------- STUDY DATA: Stress echocardiogram. Procedure: Initial setup. A baseline ECG was recorded. Surface ECG leads and blood pressure measurements were monitored. Image quality was good. Dobutamine stress test. Dobutamine was administered by intravenous infusion at an initial rate of 10 mcg/kg/min; the rate was advanced to a final rate of 20 mcg/kg/min. Heart rate response was augmented by the addition of hand packaging line attendant. The infusion was terminated after achieving the target heart rate. Transthoracic stress echocardiography. Images were captured at baseline, low dose, peak dose, and recovery. Total time of infusion 3 min 50 sec Limited 2D and color flow Doppler images were acquired and archived for permanent storage and are available for subsequent review. Study status: Routine. Patient status: Observation. Pre pain assessment is 0 out of 10. Post pain assessment is 7 out of 10. Location: Echo laboratory. Consent: The procedure was reviewed with the patient and the patient voices understanding. Study completion: The patient tolerated the procedure well. There were no complications. Discharge: Discharge instructions given [facility] -------- FINDINGS LEFT VENTRICLE: The cavity size is normal. Wall thickness is mildly increased. Systolic function is normal by the biplane method of disks. The estimated ejection fraction is 60%. There are no regional wall motion abnormalities. RIGHT VENTRICLE: The cavity size is normal. Systolic function is normal. Right ventricular systolic pressure is within the normal range. MITRAL VALVE: Structurally normal valve. Doppler: There is no regurgitation. AORTIC VALVE: Structurally normal valve. Trileaflet. Doppler: There is no regurgitation. TRICUSPID VALVE: Structurally normal valve. Doppler: There is trivial, less than 1+ regurgitation. AORTA: The aorta is normal. PERICARDIUM: There is no pericardial effusion. BASELINE ECG: Isolated ventricular ectopy. Normal sinus rhythm. STRESS PROTOCOL: + ---+---+ + -------+ +Stage +HR +BP +Symptoms + + ---+---+ + -------+ +Baseline +101+136/86 (103) +5/10 Lower back pain. + + ---+---+ + -------+ +Dobutamine 10 ug/kg/min+114+136/86 (103) + -------+ + ---+---+ + -------+ +Peak stress +125+153/93 (113) +7/10 lower back pain. + + ---+---+ + -------+ +Recovery; 2 min +139+141/99 (113) +Subsiding. + + ---+---+ + -------+ +Late recovery +99 +140/104 (116)+Lower back pain continues + + + + +that patient states is his + + + + +bladder/kidneys. + + ---+---+ + -------+ STRESS RESULTS: There is an appropriate blood pressure response to stress. The rate-pressure product for the peak heart rate and blood pressure was 73728 mm Hg/min. Stress testing did not produce any symptoms suggestive of coronary artery disease. Peak heart rate during stress was 139 bpm (95% of maximal predicted heart rate). The maximal predicted heart rate was 147 bpm.The target heart rate was achieved. The heart rate response to stress was normal. STRESS ECG: There are no stress arrhythmias or conduction abnormalities. The stress ECG is equivocal for ischemia. Horizontal ST depression: 0.5-1 mm. ECG changes occurred in inferior leads. Baseline: LV size is normal. LV global systolic function is normal. Normal wall motion; no LV regional wall motion abnormalities. Wall motion score: 1.00. Low dose: LV size is appropriately decreased from baseline. No evidence for new LV regional wall motion abnormalities. Peak dose: LV size is appropriately decreased from the prior stage. LV global systolic function is hyperdynamic. No evidence for new LV regional wall motion abnormalities. Recovery: LV size is unchanged from the prior stage. Normal wall motion; no LV regional wall motion abnormalities. Wall motion score: 1.00. STRESS ECHO RESULTS: There is no evidence for stress-induced ischemia. -------- Measurements Value 11/07/2016 Reference Ascending aorta ID, A-P, S 3.0 cm --------- Ascending aorta ID/bsa, A-P, 1.4 cm/m^2 --------- S Left ventricle Value 11/07/2016 Reference LV ID, ED (L) 4.1 cm 4.1 4.2 - 5.8 LV ID, ES 2.7 cm 2.8 2.5 - 4.0 LV ID/bsa, ED (L) 2.0 cm/m^2 2.2 - 3.0 LV ID/bsa, ES 1.3 cm/m^2 1.3 - 2.1 LV PW thickness, ED 0.9 cm 1.2 0.6 - 1.0 LV PW/LV ID ratio, ED 0.22 --------- LV wall mass 145 g 96 - 200 LV wall mass/bsa 71 g/m^2 50 - 102 Stroke volume/bsa, 1-p A2C 17.3 ml/m^2 --------- LV end-diastolic volume, 1-p 82 ml 59 69 - 185 A4C LV end-systolic volume, 1-p 33 ml 34 22 - 78 A4C LV end-diastolic volume, 2-p 76 ml 59 62 - 150 LV end-systolic volume, 2-p 31 ml 29 21 - 61 LV ejection fraction, 2-p 60 % 50 52 - 72 Ventricular septum Value 11/07/2016 Reference IVS thickness, ED (H) 1.2 cm 1.2 0.6 - 1.0 LVOT Value 11/07/2016 Reference LVOT ID, A-P 2.0 cm 1.9 --------- Tricuspid valve Value 11/07/2016 Reference Tricuspid regurg peak 2.5 m/sec 2.4 <=2.8 velocity Tricuspid peak RV-RA 26 mm Hg 23 --------- gradient Legend: (L) and (H) capo values outside specified reference range. Electronically signed by José Miguel Branch DO, ROSMERY, FACC 12/14/2019 15:49 Prior Signatures: [facility], [place] STRESS ECHOCARDIOGRA M Dobutamine PATIENT: Franklin Burton STUDY DATE: 12/14/2019 L : 1945 AGE: 74 HT/WT: 167.6 cm (66 88.5 kg (194.6 in) lb) GENDER: M BP: 138 / 97 LOCATION: [facility] PATIENT Observation main STATUS: *ORDERING PHYSICIAN: * Angelia Hinson *SUPERVISING PHYSICIAN: * José Miguel Casanova, *RN: * Keri Pleitez RN MD *READING PHYSICIAN: * José Miguel Branch, *INSPECTOR ADVANCED COMPOSITE: * ROSMERY Dealcruz DO, [facility] Ban [facility] [email or web address]] -------- INDICATIONS: (Chest pain). -------- HISTORY: Renal disease. Last Calcium Channel Richy taken 12/13/2019 08:00 AM Tobacco use former ROYAL, GERD, [place] glomerulernephritis Diabetic insulin dependent Medications: Insulin. Allergies: No known allergies. Patient is NPO per policy. Hemoglobin, potassium and/or troponin x2 are within policy guidelines -------- CONCLUSIONS SUMMARY: 1. Normal study after pharmacologic stress. The stress electrocardiography portion appears to be a false positive. Sensitivity of this study is limited due to submaximal stress. 2. Peak dose: LV size is appropriately decreased from the prior stage. LV global systolic function is hyperdynamic. No evidence for new LV regional wall motion abnormalities. 3. Stress echo: There is no evidence for stress-induced ischemia. 4. Stress ECG conclusions: The stress ECG is equivocal for ischemia. 5. Left ventricle: Systolic function is normal by the biplane method of disks. The estimated ejection fraction is 60%. -------- STUDY DATA: Stress echocardiogram. Procedure: Initial setup. A baseline ECG was recorded. Surface ECG leads and blood pressure measurements were monitored. Image quality was good. Dobutamine stress test. Dobutamine was administered by intravenous infusion at an initial rate of 10 mcg/kg/min; the rate was advanced to a final rate of 20 mcg/kg/min. Heart rate response was augmented by the addition of hand packaging line attendant. The infusion was terminated after achieving the target heart rate. Transthoracic stress echocardiography. Images were captured at baseline, low dose, peak dose, and recovery. Total time of infusion 3 min 50 sec Limited 2D and color flow Doppler images were acquired and archived for permanent storage and are available for subsequent review. Study status: Routine. Patient status: Observation. Pre pain assessment is 0 out of 10. Post pain assessment is 7 out of 10. Location: Echo laboratory. Consent: The procedure was reviewed with the patient and the patient voices understanding. Study completion: The patient tolerated the procedure well. There were no complications. Discharge: Discharge instructions given [facility] -------- FINDINGS LEFT VENTRICLE: The cavity size is normal. Wall thickness is mildly increased. Systolic function is normal by the biplane method of disks. The estimated ejection fraction is 60%. There are no regional wall motion abnormalities. RIGHT VENTRICLE: The cavity size is normal. Systolic function is normal. Right ventricular systolic pressure is within the normal range. MITRAL VALVE: Structurally normal valve. Doppler: There is no regurgitation. AORTIC VALVE: Structurally normal valve. Trileaflet. Doppler: There is no regurgitation. TRICUSPID VALVE: Structurally normal valve. Doppler: There is trivial, less than 1+ regurgitation. AORTA: The aorta is normal. PERICARDIUM: There is no pericardial effusion. BASELINE ECG: Isolated ventricular ectopy. Normal sinus rhythm. STRESS PROTOCOL: + ---+---+ + -------+ +Stage +HR +BP +Symptoms + + ---+---+ + -------+ +Baseline +101+136/86 (103) +5/10 Lower back pain. + + ---+---+ + -------+ +Dobutamine 10 ug/kg/min+114+136/86 (103) + -------+ + ---+---+ + -------+ +Peak stress +125+153/93 (113) +7/10 lower back pain. + + ---+---+ + -------+ +Recovery; 2 min +139+141/99 (113) +Subsiding. + + ---+---+ + -------+ +Late recovery +99 +140/104 (116)+Lower back pain continues + + + + +that patient states is his + + + + +bladder/kidneys. + + ---+---+ + -------+ STRESS RESULTS: There is an appropriate blood pressure response to stress. The rate-pressure product for the peak heart rate and blood pressure was 16350 mm Hg/min. Stress testing did not produce any symptoms suggestive of coronary artery disease. Peak heart rate during stress was 139 bpm (95% of maximal predicted heart rate). The maximal predicted heart rate was 147 bpm.The target heart rate was achieved. The heart rate response to stress was normal. STRESS ECG: There are no stress arrhythmias or conduction abnormalities. The stress ECG is equivocal for ischemia. Horizontal ST depression: 0.5-1 mm. ECG changes occurred in inferior leads. Baseline: LV size is normal. LV global systolic function is normal. Normal wall motion; no LV regional wall motion abnormalities. Wall motion score: 1.00. Low dose: LV size is appropriately decreased from baseline. No evidence for new LV regional wall motion abnormalities. Peak dose: LV size is appropriately decreased from the prior stage. LV global systolic function is hyperdynamic. No evidence for new LV regional wall motion abnormalities. Recovery: LV size is unchanged from the prior stage. Normal wall motion; no LV regional wall motion abnormalities. Wall motion score: 1.00. STRESS ECHO RESULTS: There is no evidence for stress-induced ischemia. -------- Measurements Value 11/07/2016 Reference Ascending aorta ID, A-P, S 3.0 cm --------- Ascending aorta ID/bsa, A-P, 1.4 cm/m^2 --------- S Left ventricle Value 11/07/2016 Reference LV ID, ED (L) 4.1 cm 4.1 4.2 - 5.8 LV ID, ES 2.7 cm 2.8 2.5 - 4.0 LV ID/bsa, ED (L) 2.0 cm/m^2 2.2 - 3.0 LV ID/bsa, ES 1.3 cm/m^2 1.3 - 2.1 LV PW thickness, ED 0.9 cm 1.2 0.6 - 1.0 LV PW/LV ID ratio, ED 0.22 --------- LV wall mass 145 g 96 - 200 LV wall mass/bsa 71 g/m^2 50 - 102 Stroke volume/bsa, 1-p A2C 17.3 ml/m^2 --------- LV end-diastolic volume, 1-p 82 ml 59 69 - 185 A4C LV end-systolic volume, 1-p 33 ml 34 22 - 78 A4C LV end-diastolic volume, 2-p 76 ml 59 62 - 150 LV end-systolic volume, 2-p 31 ml 29 21 - 61 LV ejection fraction, 2-p 60 % 50 52 - 72 Ventricular septum Value 11/07/2016 Reference IVS thickness, ED (H) 1.2 cm 1.2 0.6 - 1.0 LVOT Value 11/07/2016 Reference LVOT ID, A-P 2.0 cm 1.9 --------- Tricuspid valve Value 11/07/2016 Reference Tricuspid regurg peak 2.5 m/sec 2.4 <=2.8 velocity Tricuspid peak RV-RA 26 mm Hg 23 --------- gradient Legend: (L) and (H) capo values outside specified reference range. Electronically signed by José Miguel Branch DO, FSVM, [facility] 12/14/2019 15:49 Prior Signatures: [facility], [place] EKG 12 Lead - Chest Painon 0 12-14-2019 [facility] Test Date: 2019-12-13 Pat Name: Franklin Beaulieuh Department: [facility] Room: [facility] Gender: M Spreader: LOU : 1945 Requested By: RU HAMPTON Order Number: [id number] Reading MD: Sierra Steen Measurements Intervals Cosby Rate: 120 P: 53 WA: 137 QRS: 7 QRSD: 69 T: 30 QT: 280 QTc: 396 Interpretive Statements Sinus tachycardia Multiform ventricular premature complexes Electronically Signed On 12-14-2019 13:45:09 EDT by Sierra Steen [facility], GEOFF James, [facility] Incoming Cardiology Results From [facility] - 12/14/2019 1:46 PM EDT [facility] Test Date: 2019-12-13 Pat Name: Franklin Beaulieuh Department: [facility] Room: [facility] Gender: M Spreader: : 1945 Requested By: RU HAMPTON Order Number: [id number] Reading MD: Sierra Steen Measurements Intervals Cosby Rate: 120 P: 53 WA: 137 QRS: 7 QRSD: 69 T: 30 QT: 280 QTc: 396 Interpretive Statements Sinus tachycardia Multiform ventricular premature complexes Electronically Signed On 12-14-2019 13:45:09 EDT by Sierra Steen [facility] 12-14-2019 Test Performed by [facility] [place] [address] [place] [address] [place], [place] Test Performed by [facility] [place] [address] [place] [address] [facility], [place] POCT Glucoseon 12-14-2019 Glucose [Mass/Vol] 272 mg/dL High 70 - 100 mg/dL [place], [place] Comment on above: Test performed by gl ucose meter. Results may be 10%-15% lower than serum/plasma values. (CLIA ID [id number]) Interpretation and review of laboratory results Abnormal [place] Test Performed by [facility], [facility] [place] [address] [place] Glucose [Mass/Vol] 161 mg/dL High 70 - 100 mg/dL [place], [place] Comment on above: Test performed by gl ucose meter. Results may be 10%-15% lower than serum/plasma values. (CLIA ID [id number]) Interpretation and review of laboratory results Abnormal [place] Test Performed by [facility], [facility] [address] [place], [place] [id number] [place] [address] Glucose [Mass/Vol] 75 mg/dL 70 - 100 mg/dL [place], [place] Comment on above: Test performed by gl ucose meter. Results may be 10%-15% lower than serum/plasma values. (CLIA ID [id number]) Test Performed by [facility], [facility] [address] [place], [place] [id number] [place] [address] Glucose [Mass/Vol] 77 mg/dL 70 - 100 mg/dL [place], [place] Comment on above: Test performed by gl ucose meter. Results may be 10%-15% lower than serum/plasma values. (CLIA ID [id number]) TSH without Reflexon 020 TSH Qn 2.598 u[IU]/mL 0.465 - 4.68 u[IU]/mL [place], [place] Troponinon 12-14-2019 Troponin I.cardiac [Mass/Vol] 0.020 ng/mL 0 - 0.034 ng/mL [place], [place] Comment on above: . Test Performed by [facility], [address] [place], [place] [id number] [place] [address] Urinalysison 12-14-2019 Appearance (U) Clear Clear NA [place], [place] Comment on above: . Bacteria, UA Few Abnormal Negative /[HPF] [place], [place] Comment on above: . Bilirubin Urine Negative Negative mg/dL [place] Comment on above: . Color (U) Light-Yellow Lt. Yellow NA [place], [place] Comment on above: . Glucose, Ur Normal Normal (<70) mg/dL [place], [place] Comment on above: . Hyaline Casts, UA Negative Negative /[LPF] [place], [place] Comment on above: . Interpretation and review of laboratory results Abnormal [place] Ketones Ql (U) Negative Negative mg/dL [place] Comment on above: . LEUKOCYTES, UA 250 Abnormal Negative Karla/uL [place], [place] Comment on above: . Mucous Threads Few Negative /[LPF] [place] Comment on above: . Nitrite, Urine Positive Abnormal Negative NA [place], [place] Comment on above: . Occult Blood,Urine 0.2 mg/dL Abnormal Negative [place], [place] Comment on above: . pH (U) 6.0 [pH] [place], [place] Comment on above: . Protein (U) [Mass/Vol] 70 mg/dL Abnormal Negative Me [place], [place] Comment on above: . RBC (U) [#/Vol] 11-25 Abnormal 0 - 2 /[HPF] [place], [place] Comment on above: . Specific [place], Urine 1.012 M [place], [place] Comment on above: . Squam Epithel, UA Negative 3 - 5 /[HPF] [place], [place] Comment on above: . Urobilinogen, Urine Normal Normal ( 0-1) mg/dL [place], [place] Comment on above: . WBC, UA 11-25 Abnormal 0 - 5 /[HPF] [place], [place] Comment on above: . Add On Lab Teston 12-13-2019 Sodium [Moles/Vol] Accepted [place], [place] Comment on above: Specimen available & acceptable for analysis. Test Performed by [facility], [address] [place] [address] [place] Sodium [Moles/Vol] Accepted [place], [place] Comment on above: Specimen available & acceptable for analysis. Test Performed by [facility], [address] [place] [address] [place], [place] Basic Metabolic Panelon 07-2 Anion gap [Moles/Vol] 8 mmol/L [place], [place] Calcium [Mass/Vol] 8.6 mg/dL 8.4 - 10. 4 mg/dL [place] Chloride [Moles/Vol] 107 mmol/L 98 - 10 7 mmol/L [place] CO2 [Moles/Vol] 19 mmol/L Low 22 - 30 mmol/L [place] Creatinine [Mass/Vol] 3.02 mg/dL High 0.52 - 1.25 mg/dL [place] EGFR IF NonAfrican [place]ese 19.5 mL/min Abnormal >60 [place], [place] Comment on above: KDIGO guidelines pro vide the following GFR categories: Stage GFR(ml/min/1.73 m2) Terms G1 >=90 Normal or high G2 60-89 Mildly decreased* G3a 45-59 Mildly to moderately decreased G3b 30-44 Moderately to severely decreased G4 15-29 Severely decreased G5 <15 Kidney failure *Relative to young adult level. In the absence of evidence of kidney damage, neither GFR category G1 nor G2 fulfill the criteria for CKD. The CKD-EPI equation is validated in individuals 18 years of age and older. Currently the best equation for estimating glomerular filtration rate (GFR) from serum creatinine in children is the Bedside Zayas equation. It is less accurate in patients with extremes of muscle mass, restriction of dietary protein, ingestion of creatine, extra-renal metabolism of creatinine, or treatment with medications that affect renal tubular creatinine secretion. GFR/1.73 sq M predicted among blacks MDRD (S/P/Bld) [Vol rate/Area] 22.6 mL/min/{1.73_m2} Abnormal >60 [place], [place] Glucose [Mass/Vol] 95 mg/dL 70 - 100 mg/dL [place] Potassium [Moles/Vol] 4.6 mmol/L 3.5 - 5.1 mmol/L [place] Sodium [Moles/Vol] 134 mmol/L Low 135 - 145 mmol/L [place] Urea nitrogen [Mass/Vol] 62 mg/dL High 7 - 20 mg/dL [place] Brain Natriuretic Peptideon 12-13-2019 Interpretation and review of laboratory results Abnormal [place] Natriuretic peptide B (Bld) [Mass/Vol] 1201 pg/mL High 0 - 125 pg/mL [place], [place] Test Performed by [facility], [address] [place] [address] [place] Hemogram (CBC) w/Auto Diffon 12-13-2019 Absolute Baso # 0.0 10*3/uL 0 - 0.2 10*3/uL [place] Absolute Neut # 9.0 10*3/uL High 1.8 - 7 10*3/uL [place] Basophils/100 WBC (Bld) 0.1 % 0 - 2 % [place], [place] Eosinophils (Bld) [#/Vol] 0.0 10*3/uL 0 - 0.5 10*3/uL [place] Eosinophils/100 WBC (Bld) 0.1 % Low 1 - 6 % [place] Erythrocyte distribution width (RBC) [Ratio] 19.6 % High 11.5 - 14.5 % [place] Granulocytes/100 WBC (Bld) 91.7 % High 40 - 80 % [place] Hematocrit (Bld) [Volume fraction] 38.1 % Low 40 - 52 % [place] Hemoglobin (Bld) [Mass/Vol] 12.6 g/dL Low 13 - 18 g/dL [place] Interpretation and review of laboratory results Abnormal [place] Lymphocytes (Bld) [#/Vol] 0.4 10*3/uL Low 1 - 4.3 10*3/uL [place] Lymphocytes/100 WBC (Bld) 3.9 % Low 20 - 40 % [place] MCH (RBC) [Entitic mass] 29.0 pg 26 - 34 pg [place] MCHC (RBC) [Mass/Vol] 33.1 % 32 - 36 % [place], [place] MCV (RBC) [Entitic vol] 87.5 fL 80 - 98 fL M [place], [place] Monocytes (Bld) [#/Vol] 0.4 10*3/uL 0 - 0.8 10*3/uL [place], [place] Monocytes/100 WBC (Bld) 4.2 % 2 - 10 % [place], [place] Platelet mean volume (Bld) [Entitic vol] 7.3 fL Low 7.4 - 10.4 fL [place], [place] Platelets (Bld) [#/Vol] 90 10*3/uL Low 140 - 440 10*3/uL [place] RBC (Bld) [#/Vol] 4.36 10*6/uL Low 4.4 - 5.9 10*6/uL [place] WBC (Bld) [#/Vol] 9.8 10*3/uL 3.6 - 10.7 10*3/uL [place] Test Performed by [address] [address] [place], [place] Hepatic Function Panelon Albumin [Mass/Vol] 3.2 g/dL Low 3.5 - 5 g/dL [place], [place] ALP [Catalytic activity/Vol] 48 U/L 38 - 126 U/L [place] ALT [Catalytic activity/Vol] 30 U/L 0 - 49 U/L [place] Comment on above: The ALT test is perf ormed by an updated assay method. Please note that the reference intervals have been changed and are now sex specific. AST [Catalytic activity/Vol] 28 U/L 15 - 46 U/L [place] Bilirubin Ql (U) 0.5 mg/dL 0.2 - 1.3 mg/dL [place] Bilirubin.direct [Mass/Vol] 0.0 mg/dL 0 - 0.3 mg/dL [place] Protein [Mass/Vol] 5.5 g/dL Low 6.3 - 8.2 g/dL [place] Lipaseon 12-13-2019 Lipase [Catalytic activity/Vol] 150 U/L 23 - 300 U/L [place], [place] Otheron 12-13-2019 Interpretation and review of laboratory results Abnormal [place] Test Performed by [facility], [facility] [place], [place] [id number] [place] [address] POCT Glucoseon 12-13-2019 Glucose [Mass/Vol] 86 mg/dL 70 - 100 mg/dL [place], [place] Comment on above: Test performed by ucose meter. Results may be 10%-15% lower than serum/plasma values. (CLIA ID [id number]) Test Performed by [facility], [facility] [address] [place], [place] [id number] [place] [address] Troponinon 12-13-2019 Troponin I.cardiac [Mass/Vol] 0.021 ng/mL 0 - 0.034 ng/mL [place], [place] Comment on above: . Test Performed by [facility], [facility] [place], [place] [id number] [place] [address] Troponin x1on 12-13-2019 Troponin I.cardiac [Mass/Vol] 0.015 ng/mL 0 - 0.034 ng/mL [place], [place] Comment on above: . Test Performed by [facility], [facility] [place], [place] [id number] [place] [address] XR CHEST PORTABLEon 12-13-19 20 [facility], [facility] Incoming Radiology Results From [facility] - 12/13/2019 8:23 PM EDT Patient Name: FRANKLIN BURTON ---Diagnostic Radiology--- Exam Date/Time 12/13/2019 20:23:19 EDT Exam CR Chest Portable Ordering Physician OLGA HAMPTON RYAN Accession Number [id number] CPT4 Codes 13417 () Reason For Exam CP Report CLINICAL INFORMATION: Chest pain. CHEST X-RAY, PORTABLE, 1958: An AP portable view is compared to the prior examination of 07/09/2018. There is no abnormality of the mediastinum or cardiac silhouette. No pleural effusion, vascular congestion, focal consolidation or pneumothorax is seen. IMPRESSION: No evidence of acute cardiopulmonary process or significant interval change. Report Dictated on --- Final --- Dictated: 12/13/2019 8:22 pm Dictating Physician: MD SANFORD HARLAN Signed Date and Time: 12/13/2019 8:22 pm Signed by: MD SANFORD HARLAN Transcribed Date and Time: 12/13/2019 8:22 [place] Patient Name: FRANKLIN BURTON ---Diagnostic Radiology--- Exam Date/Time 12/13/2019 20:23:19 EDT Exam CR Chest Portable Ordering Physician OLGA HAMPTON RYAN Accession Number [id number] CPT4 Codes 63125 () Reason For Exam CP Report CLINICAL INFORMATION: Chest pain. CHEST X-RAY, PORTABLE, 1958: An AP portable view is compared to the prior examination of 07/09/2018. There is no abnormality of the mediastinum or cardiac silhouette. No pleural effusion, vascular congestion, focal consolidation or pneumothorax is seen. IMPRESSION: No evidence of acute cardiopulmonary process or significant interval change. Report Dictated on --- Final --- Dictated: 12/13/2019 8:22 pm Dictating Physician: MD SANFORD HARLAN Signed Date and Time: 12/13/2019 8:22 pm Signed by: MD SANFORD HARLAN Transcribed Date and Time: 12/13/2019 8:22 [place] C3 Complementon 11-15-2019 C3 Complement 93 mg/dL 85 - 165 mg/dL [place] C4 Complementon 11-15-2019 C4 Complement 20 mg/dL 14 - 44 mg/dL [place] CBC Auto Differentialon 10-18 Absolute Baso # 0.0 10*3/uL 0 - 0.2 10*3/uL [place] Absolute Neut # 7.3 10*3/uL High 1.8 - 7 10*3/uL [place] Basophils/100 WBC (Bld) 0.1 % 0 - 2 % [place], [place] Eosinophils (Bld) [#/Vol] 0.0 10*3/uL 0 - 0.5 10*3/uL [place] Eosinophils/100 WBC (Bld) 0.1 % Low 1 - 6 % [place] Erythrocyte distribution width (RBC) [Ratio] 19.5 % High 11.5 - 14.5 % [place] Granulocytes/100 WBC (Bld) 90.1 % High 40 - 80 % [place] Hematocrit (Bld) [Volume fraction] 34.6 % Low 40 - 52 % [place] Hemoglobin (Bld) [Mass/Vol] 11.2 g/dL Low 13 - 18 g/dL [place] Interpretation and review of laboratory results Abnormal [place] Lymphocytes (Bld) [#/Vol] 0.4 10*3/uL Low 1 - 4.3 10*3/uL [place] Lymphocytes/100 WBC (Bld) 4.6 % Low 20 - 40 % [place] MCH (RBC) [Entitic mass] 27.7 pg 26 - 34 pg [place] MCHC (RBC) [Mass/Vol] 32.5 % 32 - 36 % [place] MCV (RBC) [Entitic vol] 85.2 fL 80 - 98 fL [place] Monocytes (Bld) [#/Vol] 0.4 10*3/uL 0 - 0.8 10*3/uL [place] Monocytes/100 WBC (Bld) 5.1 % 2 - 10 % [place] Platelet mean volume (Bld) [Entitic vol] 8.3 fL 7.4 - 10.4 fL [place] Platelets (Bld) [#/Vol] 112 10*3/uL Low 140 - 440 10*3/uL [place] RBC (Bld) [#/Vol] 4.06 10*6/uL Low 4.4 - 5.9 10*6/uL [place] WBC (Bld) [#/Vol] 8.1 10*3/uL 3.6 - 10.7 10*3/uL [place] Test Performed by [facility], [address] [place] [address], [place] [address] [place], [place] Creatinine, Random Urineon 0 11-15-2019 Creatinine (U) [Mass/Vol] 23.8 mg/dL No Range [place], [place] High sensitivity CRPon 11-14 CRP High Sensitivity 0.32 mg/L 0 - 3 mg/L [place], [place] Comment on above: Classification for C ardiovascular Disease Risk Low <1.00 mg/L Average 1.00-3.00 mg/L High >3.00-10.00 mg/L Indeterminant* >10.00 mg/L *May be indication of another source of inflammation or infection. Otheron 11-15-2019 [facility], [address] [place], [place] [address] [place], [place] Test Performed by [facility], [address] [place] [address] [place], [place] Protein, urine, randomon Interpretation and review of laboratory results Abnormal [place], [place] Protein (U) [Mass/Vol] 60 mg/dL High No Range [place], [place] Renal Function Panelon 11-14 Albumin [Mass/Vol] 3.1 g/dL Low 3.5 - 5 g/dL [place], [place] Anion gap [Moles/Vol] 9 mmol/L [place], [place] Calcium [Mass/Vol] 8.6 mg/dL 8.4 - 10. 4 mg/dL [place], [place] Chloride [Moles/Vol] 103 mmol/L 98 - 10 7 mmol/L [place] CO2 [Moles/Vol] 18 mmol/L Low 22 - 30 mmol/L [place] Creatinine [Mass/Vol] 2.68 mg/dL High 0.52 - 1.25 mg/dL [place], [place] EGFR IF NonAfrican [place]ese 22.5 mL/min Abnormal >60 [place], [place] Comment on above: KDIGO guidelines pro vide the following GFR categories: Stage GFR(ml/min/1.73 m2) Terms G1 >=90 Normal or high G2 60-89 Mildly decreased* G3a 45-59 Mildly to moderately decreased G3b 30-44 Moderately to severely decreased G4 15-29 Severely decreased G5 <15 Kidney failure *Relative to young adult level. In the absence of evidence of kidney damage, neither GFR category G1 nor G2 fulfill the criteria for CKD. The CKD-EPI equation is validated in individuals 18 years of age and older. Currently the best equation for estimating glomerular filtration rate (GFR) from serum creatinine in children is the Bedside Zayas equation. It is less accurate in patients with extremes of muscle mass, restriction of dietary protein, ingestion of creatine, extra-renal metabolism of creatinine, or treatment with medications that affect renal tubular creatinine secretion. GFR/1.73 sq M predicted among blacks MDRD (S/P/Bld) [Vol rate/Area] 26.1 mL/min/{1.73_m2} Abnormal >60 [place], [place] Glucose [Mass/Vol] 98 mg/dL 70 - 100 mg/dL [place] Interpretation and review of laboratory results Abnormal [place] Phosphate [Mass/Vol] 3.9 mg/dL 2.5 - 4 .5 mg/dL [place], [place] Potassium [Moles/Vol] 5.3 mmol/L High 3.5 - 5.1 mmol/L [place], [place] Sodium [Moles/Vol] 130 mmol/L Low 135 - 145 mmol/L [place], [place] Urea nitrogen [Mass/Vol] 65 mg/dL High 7 - 20 mg/dL [place] Test Performed by [id number] [place] [address] Sedimentation Rateon 020 Sed Rate 3 mm/h 0 - 10 mm/h [place], [place] Test Performed by [id number] [place] [address] Urinalysison 11-15-2019 Appearance (U) Clear Clear NA [place], [place] Comment on above: . Bacteria, UA Negative Negative /[HPF] [place], [place] Comment on above: . Bilirubin Urine Negative Negative mg/dL [place], [place] Comment on above: . Color (U) Colorless Lt. Yellow NA [place], [place] Comment on above: . Glucose, Ur 70 mg/dL Normal (<70) [place], [place] Comment on above: . Hyaline Casts, UA Negative Negative /[LPF] [place], [place] Comment on above: . Interpretation and review of laboratory results Abnormal [place] Ketones Ql (U) Negative Negative mg/dL [place], [place] Comment on above: . LEUKOCYTES, UA Negative Negative Karla/uL [place], [place] Comment on above: . Nitrite, Urine Negative Negative NA [place], [place] Comment on above: . Occult Blood,Urine 0.1 mg/dL Abnormal Negative [place], [place] Comment on above: . pH (U) 6.5 [pH] [place], [place] Comment on above: . Protein (U) [Mass/Vol] 30 mg/dL Abnormal Negative [place], [place] Comment on above: . RBC (U) [#/Vol] 0-2 0 - 2 /[HPF] [place], [place] Comment on above: . Specific [place], Urine 1.008 M [place], [place] Comment on above: . Squam Epithel, UA Negative 3 - 5 /[HPF] [place], [place] Comment on above: . Urobilinogen, Urine Normal Normal ( 0-1) mg/dL [place], [place] Comment on above: . WBC, UA 0-2 0 - 5 /[HPF] [place], [place] Comment on above: . Test Performed by [facility], [address] [place] [address] [place], [place] CBCon 10-25-2019 Erythrocyte distribution width (RBC) [Ratio] 16.4 % High 11.5 - 14.5 % [place], [place] Hematocrit (Bld) [Volume fraction] 28.5 % Low 40 - 52 % [place], [place] Hemoglobin (Bld) [Mass/Vol] 9.5 g/dL Low 13 - 18 g/dL [place], [place] Interpretation and review of laboratory results Abnormal [place], [place] MCH (RBC) [Entitic mass] 27.4 pg 26 - 34 pg [place], [place] MCHC (RBC) [Mass/Vol] 33.4 % 32 - 36 % [place] MCV (RBC) [Entitic vol] 82.1 fL 80 - 98 fL [place], [place] Platelet mean volume (Bld) [Entitic vol] 7.9 fL 7.4 - 10.4 fL [place], [place] Platelets (Bld) [#/Vol] 161 10*3/uL 140 - 440 10*3/uL [place], [place] RBC (Bld) [#/Vol] 3.47 10*6/uL Low 4.4 - 5.9 10*6/uL [place], [place] WBC (Bld) [#/Vol] 6.3 10*3/uL 3.6 - 10.7 10*3/uL [place], [place] Test Performed by [address] Hepatitis Panel, Acuteon HAV IgM IA Qn (S) NOT DETECTED Not-Detect ed [place], [place] Hep B Core Ab, IgM NOT DETECTED Not-Detec anselmo [place], [place] Hepatitis B Surface Ag NOT DETECTED Not-D etected [place] Hepatitis C Ab NOT DETECTED Not-Detected [place], [place] Comment on above: Patients with DETECT ED Hepatitis C Ab results should have a new specimen submitted for supplemental testing with a Hepatitis C Quantitative RNA assay (viral load), if clinically indicated. Test Performed by [facility], [address] [place] [address] POCT Glucoseon 10-25-2019 Glucose [Mass/Vol] 102 mg/dL High 70 - 100 mg/dL [place], [place] Comment on above: Test performed by ucose meter. Results may be 10%-15% lower than serum/plasma values. (CLIA ID [id number]) Interpretation and review of laboratory results Abnormal [place] Test Performed by [address] Renal Function Panelon 10-24 Albumin [Mass/Vol] 3.2 g/dL Low 3.5 - 5 g/dL [place], [place] Anion gap [Moles/Vol] 9 mmol/L [place], [place] Calcium [Mass/Vol] 8.6 mg/dL 8.4 - 10. 4 mg/dL [place], [place] Chloride [Moles/Vol] 103 mmol/L 98 - 10 7 mmol/L [place], [place] CO2 [Moles/Vol] 20 mmol/L Low 22 - 30 mmol/L [place], [place] Creatinine [Mass/Vol] 3.12 mg/dL High 0.52 - 1.25 mg/dL [place], [place] EGFR IF NonAfrican [place]ese 18.8 mL/min Abnormal >60 [place], [place] Comment on above: KDIGO guidelines pro vide the following GFR categories: Stage GFR(ml/min/1.73 m2) Terms G1 >=90 Normal or high G2 60-89 Mildly decreased* G3a 45-59 Mildly to moderately decreased G3b 30-44 Moderately to severely decreased G4 15-29 Severely decreased G5 <15 Kidney failure *Relative to young adult level. In the absence of evidence of kidney damage, neither GFR category G1 nor G2 fulfill the criteria for CKD. The CKD-EPI equation is validated in individuals 18 years of age and older. Currently the best equation for estimating glomerular filtration rate (GFR) from serum creatinine in children is the Bedside Zayas equation. It is less accurate in patients with extremes of muscle mass, restriction of dietary protein, ingestion of creatine, extra-renal metabolism of creatinine, or treatment with medications that affect renal tubular creatinine secretion. GFR/1.73 sq M predicted among blacks MDRD (S/P/Bld) [Vol rate/Area] 21.7 mL/min/{1.73_m2} Abnormal >60 [place], [place] Glucose [Mass/Vol] 147 mg/dL High 70 - 100 mg/dL [place], [place] Interpretation and review of laboratory results Abnormal [place] Phosphate [Mass/Vol] 3.5 mg/dL 2.5 - 4 .5 mg/dL [place], [place] Potassium [Moles/Vol] 4.7 mmol/L 3.5 - 5.1 mmol/L [place], [place] Sodium [Moles/Vol] 133 mmol/L Low 135 - 145 mmol/L [place], [place] Urea nitrogen [Mass/Vol] 68 mg/dL High 7 - 20 mg/dL [place], [place] Test Performed by [facility], [address] [place] [address] [place], [place] CBCon 10-24-2019 Erythrocyte distribution width (RBC) [Ratio] 16.3 % High 11.5 - 14.5 % [place], [place] Hematocrit (Bld) [Volume fraction] 27.8 % Low 40 - 52 % [place], [place] Hemoglobin (Bld) [Mass/Vol] 9.3 g/dL Low 13 - 18 g/dL [place] Interpretation and review of laboratory results Abnormal [place] MCH (RBC) [Entitic mass] 27.2 pg 26 - 34 pg [place], [place] MCHC (RBC) [Mass/Vol] 33.3 % 32 - 36 % [place] MCV (RBC) [Entitic vol] 81.9 fL 80 - 98 fL [place], [place] Platelet mean volume (Bld) [Entitic vol] 8.1 fL 7.4 - 10.4 fL [place], [place] Platelets (Bld) [#/Vol] 188 10*3/uL 140 - 440 10*3/uL [place], [place] RBC (Bld) [#/Vol] 3.40 10*6/uL Low 4.4 - 5.9 10*6/uL [place], [place] WBC (Bld) [#/Vol] 8.7 10*3/uL 3.6 - 10.7 10*3/uL [place] Test Performed by [facility], [address] [place] [address] [place], [place] POCT Glucoseon 10-24-2019 Glucose [Mass/Vol] 223 mg/dL High 70 - 100 mg/dL [place], [place] Comment on above: Test performed by ucose meter. Results may be 10%-15% lower than serum/plasma values. (CLIA ID [id number]) Interpretation and review of laboratory results Abnormal [place] Test Performed by [facility], [facility] [address] [place], [place] Glucose [Mass/Vol] 154 mg/dL High 70 - 100 mg/dL [place], [place] Comment on above: Test performed by gl ucose meter. Results may be 10%-15% lower than serum/plasma values. (CLIA ID [id number]) Interpretation and review of laboratory results Abnormal [place] Test Performed by [facility], [facility] [address] [place], [place] Glucose [Mass/Vol] 162 mg/dL High 70 - 100 mg/dL [place], [place] Comment on above: Test performed by gl ucose meter. Results may be 10%-15% lower than serum/plasma values. (CLIA ID [id number]) Interpretation and review of laboratory results Abnormal [place] Test Performed by [facility], [facility] [address] [place], [place] Glucose [Mass/Vol] 171 mg/dL High 70 - 100 mg/dL [place], [place] Comment on above: Test performed by gl ucose meter. Results may be 10%-15% lower than serum/plasma values. (CLIA ID [id number]) Interpretation and review of laboratory results Abnormal [place] Test Performed by [facility], [facility] [address] [place] Renal Function Panelon 10-23 Albumin [Mass/Vol] 3.3 g/dL Low 3.5 - 5 g/dL [place], [place] Anion gap [Moles/Vol] 10 mmol/L [place], [place] Calcium [Mass/Vol] 8.7 mg/dL 8.4 - 10. 4 mg/dL [place], [place] Chloride [Moles/Vol] 104 mmol/L 98 - 10 7 mmol/L [place] CO2 [Moles/Vol] 18 mmol/L Low 22 - 30 mmol/L [place] Creatinine [Mass/Vol] 3.23 mg/dL High 0.52 - 1.25 mg/dL [place], [place] EGFR IF NonAfrican [place]ese 18.0 mL/min Abnormal >60 [place], [place] Comment on above: KDIGO guidelines pro vide the following GFR categories: Stage GFR(ml/min/1.73 m2) Terms G1 >=90 Normal or high G2 60-89 Mildly decreased* G3a 45-59 Mildly to moderately decreased G3b 30-44 Moderately to severely decreased G4 15-29 Severely decreased G5 <15 Kidney failure *Relative to young adult level. In the absence of evidence of kidney damage, neither GFR category G1 nor G2 fulfill the criteria for CKD. The CKD-EPI equation is validated in individuals 18 years of age and older. Currently the best equation for estimating glomerular filtration rate (GFR) from serum creatinine in children is the Bedside Zayas equation. It is less accurate in patients with extremes of muscle mass, restriction of dietary protein, ingestion of creatine, extra-renal metabolism of creatinine, or treatment with medications that affect renal tubular creatinine secretion. GFR/1.73 sq M predicted among blacks MDRD (S/P/Bld) [Vol rate/Area] 20.9 mL/min/{1.73_m2} Abnormal >60 [place], [place] Glucose [Mass/Vol] 153 mg/dL High 70 - 100 mg/dL [place] Interpretation and review of laboratory results Abnormal [place] Phosphate [Mass/Vol] 4.0 mg/dL 2.5 - 4 .5 mg/dL [place] Potassium [Moles/Vol] 4.4 mmol/L 3.5 - 5.1 mmol/L [place], [place] Sodium [Moles/Vol] 133 mmol/L Low 135 - 145 mmol/L [place], [place] Urea nitrogen [Mass/Vol] 64 mg/dL High 7 - 20 mg/dL [place] Test Performed by [address] [address] [place], [place] CBCon 10-23-2019 Erythrocyte distribution width (RBC) [Ratio] 16.2 % High 11.5 - 14.5 % [place] Hematocrit (Bld) [Volume fraction] 28.5 % Low 40 - 52 % [place] Hemoglobin (Bld) [Mass/Vol] 9.5 g/dL Low 13 - 18 g/dL [place], [place] Interpretation and review of laboratory results Abnormal [place], [place] MCH (RBC) [Entitic mass] 27.1 pg 26 - 34 pg [place] MCHC (RBC) [Mass/Vol] 33.2 % 32 - 36 % [place] MCV (RBC) [Entitic vol] 81.5 fL 80 - 98 fL M [place], [place] Platelet mean volume (Bld) [Entitic vol] 7.9 fL 7.4 - 10.4 fL [place], [place] Platelets (Bld) [#/Vol] 183 10*3/uL 140 - 440 10*3/uL [place] RBC (Bld) [#/Vol] 3.50 10*6/uL Low 4.4 - 5.9 10*6/uL [place], [place] WBC (Bld) [#/Vol] 11.3 10*3/uL High 3.6 - 10.7 10*3/uL [place] Test Performed by [facility], [facility] [employer] Creatinine, Random Urineon 0 10-23-2019 Creatinine (U) [Mass/Vol] 65.4 mg/dL No Range [place], [place] Hepatitis B Surface Antibody on 10-23-2019 HBV surface Ab (S) [Titer] <8.0 m[IU]/mL [place], [place] Comment on above: Interpretation: <8.0 Non-Reactive 8.0-11.9 Equivocal >= 12.0 Ab Detected Hepatitis B Surface Antigeno n 10-23-2019 Hepatitis B Surface Ag NOT DETECTED Not-D etected NA [place] Hepatitis C Antibodyon 10-22 Hepatitis C Ab NOT DETECTED Not-Detected NA [place], [place] Comment on above: Patients with DETECT ED Hepatitis C Ab results should have a new specimen submitted for supplemental testing with a Hepatitis C Quantitative RNA assay (viral load), if clinically indicated. Otheron 10-23-2019 Test Performed by [facility], [facility] [employer]. [address] Test Performed by [place] [address] POCT Glucoseon 10-23-2019 Glucose [Mass/Vol] 187 mg/dL High 70 - 100 mg/dL [facility] [place], [place] Comment on above: Test performed by gl ucose meter. Results may be 10%-15% lower than serum/plasma values. (CLIA ID [id number]) Interpretation and review of laboratory results Abnormal [facility] [place] Test Performed by [facility], [address] [place] [address] [facility] [place], [place] Glucose [Mass/Vol] 185 mg/dL High 70 - 100 mg/dL [facility] [place], [place] Comment on above: Test performed by gl ucose meter. Results may be 10%-15% lower than serum/plasma values. (CLIA ID [id number]) Interpretation and review of laboratory results Abnormal [facility] [place] Test Performed by [facility], [facility] [place] [address] [facility], [place] Glucose [Mass/Vol] 137 mg/dL High 70 - 100 mg/dL [facility], [place] Comment on above: Test performed by gl ucose meter. Results may be 10%-15% lower than serum/plasma values. (CLIA ID [id number]) Interpretation and review of laboratory results Abnormal [facility] [place] Test Performed by [facility], [facility] [place] [address] [facility], [place] Glucose [Mass/Vol] 157 mg/dL High 70 - 100 mg/dL [facility], [place] Comment on above: Test performed by gl ucose meter. Results may be 10%-15% lower than serum/plasma values. (CLIA ID [id number]) Interpretation and review of laboratory results Abnormal [facility] [place] Test Performed by [facility], [address] [place] [address] [facility], [place] Protein, urine, randomon Interpretation and review of laboratory results Abnormal [facility] [employer] [place], [place] Protein (U) [Mass/Vol] 162 mg/dL High No Range [facility] [employer] [place], [place] Renal Function Panelon 10-22 Albumin [Mass/Vol] 3.6 g/dL 3.5 - 5 g/dL [facility] [place] Anion gap [Moles/Vol] 11 mmol/L [place], [place] Calcium [Mass/Vol] 9.2 mg/dL 8.4 - 10. 4 mg/dL [place] Chloride [Moles/Vol] 105 mmol/L 98 - 10 7 mmol/L [place] CO2 [Moles/Vol] 17 mmol/L Low 22 - 30 mmol/L [place] Creatinine [Mass/Vol] 3.58 mg/dL High 0.52 - 1.25 mg/dL [place], [place] EGFR IF NonAfrican [place]ese 15.9 mL/min Abnormal >60 [place], [place] Comment on above: KDIGO guidelines pro vide the following GFR categories: Stage GFR(ml/min/1.73 m2) Terms G1 >=90 Normal or high G2 60-89 Mildly decreased* G3a 45-59 Mildly to moderately decreased G3b 30-44 Moderately to severely decreased G4 15-29 Severely decreased G5 <15 Kidney failure *Relative to young adult level. In the absence of evidence of kidney damage, neither GFR category G1 nor G2 fulfill the criteria for CKD. The CKD-EPI equation is validated in individuals 18 years of age and older. Currently the best equation for estimating glomerular filtration rate (GFR) from serum creatinine in children is the Bedside Zayas equation. It is less accurate in patients with extremes of muscle mass, restriction of dietary protein, ingestion of creatine, extra-renal metabolism of creatinine, or treatment with medications that affect renal tubular creatinine secretion. GFR/1.73 sq M predicted among blacks MDRD (S/P/Bld) [Vol rate/Area] 18.4 mL/min/{1.73_m2} Abnormal >60 [place], [place] Glucose [Mass/Vol] 154 mg/dL High 70 - 100 mg/dL [place] Interpretation and review of laboratory results Abnormal [place] Phosphate [Mass/Vol] 3.5 mg/dL 2.5 - 4 .5 mg/dL [place] Potassium [Moles/Vol] 4.6 mmol/L 3.5 - 5.1 mmol/L [place] Sodium [Moles/Vol] 133 mmol/L Low 135 - 145 mmol/L [place], [place] Urea nitrogen [Mass/Vol] 55 mg/dL High 7 - 20 mg/dL [place] Test Performed by [facility], [facility] [place] [address] [place], [place] CBCon 10-22-2019 Erythrocyte distribution width (RBC) [Ratio] 16.2 % High 11.5 - 14.5 % [place] Hematocrit (Bld) [Volume fraction] 31.3 % Low 40 - 52 % [place] Hemoglobin (Bld) [Mass/Vol] 10.2 g/dL Low 13 - 18 g/dL [place], [place] Interpretation and review of laboratory results Abnormal [place] MCH (RBC) [Entitic mass] 26.7 pg 26 - 34 pg [place] MCHC (RBC) [Mass/Vol] 32.6 % 32 - 36 % [place] MCV (RBC) [Entitic vol] 81.7 fL 80 - 98 fL [place], [place] Platelet mean volume (Bld) [Entitic vol] 7.6 fL 7.4 - 10.4 fL [place], [place] Platelets (Bld) [#/Vol] 186 10*3/uL 140 - 440 10*3/uL [place] RBC (Bld) [#/Vol] 3.83 10*6/uL Low 4.4 - 5.9 10*6/uL [place] WBC (Bld) [#/Vol] 5.4 10*3/uL 3.6 - 10.7 10*3/uL [place] Test Performed by [facility], [facility] [place] [address] [place], [place] Ferritinon 10-22-2019 Ferritin [Mass/Vol] 516 ng/mL High 18 - 464 ng/mL [place] Interpretation and review of laboratory results Abnormal [place] Test Performed by [facility], [facility] [place] [address] [place] Iron and TIBCon 10-22-2019 Interpretation and review of laboratory results Abnormal [place] Iron [Mass/Vol] 38 ug/dL Low 49 - 181 ug/dL [place] Sat 16 % 15 - 50 % [place] TIBC 233 ug/dL Low 261 - 497 ug/dL [place] Test Performed by [facility], [address] [place] [address] [place], [place] POCT Glucoseon 10-22-2019 Glucose [Mass/Vol] 212 mg/dL High 70 - 100 mg/dL [place], [place] Comment on above: Test performed by gl ucose meter. Results may be 10%-15% lower than serum/plasma values. (CLIA ID [id number]) Interpretation and review of laboratory results Abnormal [facility], [place] Test Performed by [facility], [address] [place] [address] [place], [place] Glucose [Mass/Vol] 176 mg/dL High 70 - 100 mg/dL [place], [place] Comment on above: Test performed by gl ucose meter. Results may be 10%-15% lower than serum/plasma values. (CLIA ID [id number]) Interpretation and review of laboratory results Abnormal [facility], [place] Test Performed by [facility], [facility] [place] [address] [place], [place] Glucose [Mass/Vol] 196 mg/dL High 70 - 100 mg/dL [place], [place] Comment on above: Test performed by gl ucose meter. Results may be 10%-15% lower than serum/plasma values. (CLIA ID [id number]) Interpretation and review of laboratory results Abnormal [facility] [place] Test Performed by [facility], [address] [place] [address] [place] Glucose [Mass/Vol] 199 mg/dL High 70 - 100 mg/dL [place], [place] Comment on above: Test performed by gl ucose meter. Results may be 10%-15% lower than serum/plasma values. (CLIA ID [id number]) Interpretation and review of laboratory results Abnormal [facility] [employer] [place] Test Performed by [facility], [address] [place] [address] [place] Renal Function Panelon 10-21 Albumin [Mass/Vol] 3.8 g/dL 3.5 - 5 g/dL [place], [place] Anion gap [Moles/Vol] 9 mmol/L [place], [place] Calcium [Mass/Vol] 9.1 mg/dL 8.4 - 10. 4 mg/dL [place] Chloride [Moles/Vol] 104 mmol/L 98 - 10 7 mmol/L [place] CO2 [Moles/Vol] 19 mmol/L Low 22 - 30 mmol/L [place] Creatinine [Mass/Vol] 3.54 mg/dL High 0.52 - 1.25 mg/dL [place] EGFR IF NonAfrican [place]ese 16.1 mL/min Abnormal >60 [place], [place] Comment on above: KDIGO guidelines pro vide the following GFR categories: Stage GFR(ml/min/1.73 m2) Terms G1 >=90 Normal or high G2 60-89 Mildly decreased* G3a 45-59 Mildly to moderately decreased G3b 30-44 Moderately to severely decreased G4 15-29 Severely decreased G5 <15 Kidney failure *Relative to young adult level. In the absence of evidence of kidney damage, neither GFR category G1 nor G2 fulfill the criteria for CKD. The CKD-EPI equation is validated in individuals 18 years of age and older. Currently the best equation for estimating glomerular filtration rate (GFR) from serum creatinine in children is the Bedside Zayas equation. It is less accurate in patients with extremes of muscle mass, restriction of dietary protein, ingestion of creatine, extra-renal metabolism of creatinine, or treatment with medications that affect renal tubular creatinine secretion. GFR/1.73 sq M predicted among blacks MDRD (S/P/Bld) [Vol rate/Area] 18.7 mL/min/{1.73_m2} Abnormal >60 [place], [place] Glucose [Mass/Vol] 211 mg/dL High 70 - 100 mg/dL [place] Interpretation and review of laboratory results Abnormal [place] Phosphate [Mass/Vol] 2.3 mg/dL Low 2.5 - 4 .5 mg/dL [place], [place] Potassium [Moles/Vol] 5.2 mmol/L High 3.5 - 5.1 mmol/L [place] Sodium [Moles/Vol] 132 mmol/L Low 135 - 145 mmol/L [place], [place] Urea nitrogen [Mass/Vol] 47 mg/dL High 7 - 20 mg/dL [place] Test Performed by [facility], [facility] [place] [address] [place] Add On Lab Teston 10-21-2019 Sodium [Moles/Vol] Accepted [place], [place] Comment on above: Specimen available & acceptable for analysis. Test Performed by [facility], [facility] [place] [address] [place] Sodium [Moles/Vol] Rejected [place], [place] Comment on above: No specimen availabl e for addon. Test Performed by [facility], [facility] [place] [address] [place], KY CBCon 10-21-2019 Erythrocyte distribution width (RBC) [Ratio] 16.1 % High 11.5 - 14.5 % [place] Hematocrit (Bld) [Volume fraction] 28.7 % Low 40 - 52 % [place] Hemoglobin (Bld) [Mass/Vol] 9.5 g/dL Low 13 - 18 g/dL [place] Interpretation and review of laboratory results Abnormal [place] MCH (RBC) [Entitic mass] 27.1 pg 26 - 34 pg [place] MCHC (RBC) [Mass/Vol] 33.1 % 32 - 36 % [place] MCV (RBC) [Entitic vol] 82.1 fL 80 - 98 fL [place], [place] Platelet mean volume (Bld) [Entitic vol] 7.3 fL Low 7.4 - 10.4 fL [place], [place] Platelets (Bld) [#/Vol] 188 10*3/uL 140 - 440 10*3/uL [place] RBC (Bld) [#/Vol] 3.49 10*6/uL Low 4.4 - 5.9 10*6/uL [place] [place] WBC (Bld) [#/Vol] 5.0 10*3/uL 3.6 - 10.7 10*3/uL [place], [place] Test Performed by [id number] [place] [address] Protime/INR & PTTon 10-21-19 20 aPTT Coag (Bld) [Time] 28.1 s 20 - 30.5 s M [place], [place] Comment on above: NOTE: The therapeuti c time for Heparin anticoagulation, based on Xa activity inhibition, is an APTT of 46-80 seconds. INR Coag (PPP) [Relative time] 1.0 {INR} [place], [place] Comment on above: Recommended Anticoag ulant Therapy: SEE BELOW ----- INR of 2.0 - 3.0 : - Prophylaxis of Venous Thrombosis (high-risk surgery) - Treatment of Venous Thrombosis - Treatment of Pulmonary Embolism (Includes tissue heart valves, Acute Myocardial Infarction to prevent systemic embolism, Valvular Heart Disease, and Atrial Fibrillation) ----- INR of 2.5 - 3.5 : - Mechanical Prosthetic Valves (high risk) - If oral anticoagulant therapy is used to prevent Myocardial Infarction PT Coag (PPP) [Time] 11.1 s 9 - 12 s [place], [place] Comment on above: . Test Performed by [id number] [place] [address] RENAL + LIVER PROFon 020 Albumin [Mass/Vol] 3.6 g/dL 3.5 - 5 g/dL [place], [place] ALP [Catalytic activity/Vol] 121 U/L 38 - 126 U/L [place] ALT [Catalytic activity/Vol] 13 U/L 0 - 49 U/L [place], [place] Comment on above: The ALT test is perf ormed by an updated assay method. Please note that the reference intervals have been changed and are now sex specific. Anion gap [Moles/Vol] 10 mmol/L [place], [place] AST [Catalytic activity/Vol] 25 U/L 15 - 46 U/L [place] Bilirubin Ql (U) 0.3 mg/dL 0.2 - 1.3 mg/dL [place] Bilirubin.direct [Mass/Vol] 0.0 mg/dL 0 - 0.3 mg/dL [place] Calcium [Mass/Vol] 8.9 mg/dL 8.4 - 10. 4 mg/dL [place] Chloride [Moles/Vol] 104 mmol/L 98 - 10 7 mmol/L [place] CO2 [Moles/Vol] 21 mmol/L Low 22 - 30 mmol/L [place] Creatinine [Mass/Vol] 3.62 mg/dL High 0.52 - 1.25 mg/dL [place] EGFR IF NonAfrican Sudanese 15.7 mL/min Abnormal >60 [place], [place] Comment on above: KDIGO guidelines pro vide the following GFR categories: Stage GFR(ml/min/1.73 m2) Terms G1 >=90 Normal or high G2 60-89 Mildly decreased* G3a 45-59 Mildly to moderately decreased G3b 30-44 Moderately to severely decreased G4 15-29 Severely decreased G5 <15 Kidney failure *Relative to young adult level. In the absence of evidence of kidney damage, neither GFR category G1 nor G2 fulfill the criteria for CKD. The CKD-EPI equation is validated in individuals 18 years of age and older. Currently the best equation for estimating glomerular filtration rate (GFR) from serum creatinine in children is the Bedside Zayas equation. It is less accurate in patients with extremes of muscle mass, restriction of dietary protein, ingestion of creatine, extra-renal metabolism of creatinine, or treatment with medications that affect renal tubular creatinine secretion. GFR/1.73 sq M predicted among blacks MDRD (S/P/Bld) [Vol rate/Area] 18.2 mL/min/{1.73_m2} Abnormal >60 [place], [place] Glucose [Mass/Vol] 126 mg/dL High 70 - 100 mg/dL [place] Interpretation and review of laboratory results Abnormal [place] Phosphate [Mass/Vol] 4.2 mg/dL 2.5 - 4 .5 mg/dL [place] Potassium [Moles/Vol] 4.9 mmol/L 3.5 - 5.1 mmol/L [place] Protein [Mass/Vol] 6.5 g/dL 6.3 - 8.2 g/dL [place] Sodium [Moles/Vol] 134 mmol/L Low 135 - 145 mmol/L [place] Urea nitrogen [Mass/Vol] 46 mg/dL High 7 - 20 mg/dL [place] Test Performed by [facility], [address] [place] [id number] [place] BIOPSY RENAL RIGHT PERCon 10-21-2019 Patient Name: FRANKLIN BURTON ---Ultrasound--- Exam Date/Time 10/21/2019 11:11:54 EDT Exam US Biopsy Renal Right Ordering Physician FANG SMALLWOOD Accession Number [id number] CPT4 Codes 40198 (), 44739 () Reason For Exam roderick, ckd 3, microscopic hematuria Report EXAMINATION: Ultrasound guided kidney biopsy. CLINICAL INFORMATION: Medical renal failure. Microscopic hematuria. The patient (or guardian) agrees to proceed with the procedure, and understands the benefits and risks given their co-morbidities/chroni c conditions and quality of life. This includes the discussion regarding the risk of felix COVID-19 and the impact of that possibility on the post-recovery process. ANESTHESIA: Moderate conscious sedation was provided with 1 mg Versed and 50 mcg Fentanyl. An independent observer monitored the patient during the procedure. The intra service time was 30 minutes. Cardiorespiratory monitoring was provided and the patient left department in stable condition. 10 mg of IV hydralazine were administered for elevated blood pressure. Systolic blood pressure of 150s to 130s following IV hydralazine administration. PROCEDURE: The patient was placed prone on the ultrasound table. A limited ultrasound scan through the kidneys demonstrates no focal abnormalities. There is no evidence of hydronephrosis. A site overlying the lower pole of the right kidney was picked for percutaneous biopsy. This area was prepped and draped in the usual fashion. Under direct ultrasound guidance, a 17 gauge coaxial needle was advanced without difficulty into the kidney. Subsequently, several 18 gauge core samples were acquired. Postprocedure ultrasound demonstrates no significant bleeding in this region. There were no immediate complications. The patient tolerated the procedure without difficulty and was transferred to the recovery room in stable condition. IMPRESSION: 1. Successful biopsy of the lower pole of the right kidney as detailed above. Several 18 gauge core samples were sent to pathology for analysis. Report Dictated on --- Final --- Dictated: 10/21/2019 12:23 pm Dictating Physician: JANUARY MCLAEN DO, I Signed Date and Time: 10/21/2019 12:25 pm Signed by: JANUARY MCLEAN DO, I Transcribed Date and Time: 10/21/2019 12:23 [place], [place], [facility] Incoming Radiology Results From [facility] - 10/21/2019 12:26 PM EDT Patient Name: FRANKLIN BURTON ---Ultrasound--- Exam Date/Time 10/21/2019 11:11:54 EDT Exam US Biopsy Renal Right Ordering Physician FANG SMALLWOOD Accession Number [id number] CPT4 Codes 94776 (), 48732 () Reason For Exam roderick, ckd 3, microscopic hematuria Report EXAMINATION: Ultrasound guided kidney biopsy. CLINICAL INFORMATION: Medical renal failure. Microscopic hematuria. The patient (or guardian) agrees to proceed with the procedure, and understands the benefits and risks given their co-morbidities/chroni c conditions and quality of life. This includes the discussion regarding the risk of felix COVID-19 and the impact of that possibility on the post-recovery process. ANESTHESIA: Moderate conscious sedation was provided with 1 mg Versed and 50 mcg Fentanyl. An independent observer monitored the patient during the procedure. The intra service time was 30 minutes. Cardiorespiratory monitoring was provided and the patient left department in stable condition. 10 mg of IV hydralazine were administered for elevated blood pressure. Systolic blood pressure of 150s to 130s following IV hydralazine administration. PROCEDURE: The patient was placed prone on the ultrasound table. A limited ultrasound scan through the kidneys demonstrates no focal abnormalities. There is no evidence of hydronephrosis. A site overlying the lower pole of the right kidney was picked for percutaneous biopsy. This area was prepped and draped in the usual fashion. Under direct ultrasound guidance, a 17 gauge coaxial needle was advanced without difficulty into the kidney. Subsequently, several 18 gauge core samples were acquired. Postprocedure ultrasound demonstrates no significant bleeding in this region. There were no immediate complications. The patient tolerated the procedure without difficulty and was transferred to the recovery room in stable condition. IMPRESSION: 1. Successful biopsy of the lower pole of the right kidney as detailed above. Several 18 gauge core samples were sent to pathology for analysis. Report Dictated on --- Final --- Dictated: 10/21/2019 12:23 pm Dictating Physician: JANUARY MCLEAN DO, I Signed Date and Time: 10/21/2019 12:25 pm Signed by: JANUARY MCLEAN DO, I Transcribed Date and Time: 10/21/2019 12:23 [place] US RETROPERITONEAL COMPLETEo n 10-21-2019 [facility], [facility] Incoming Radiology Results From [facility] - 10/21/2019 1:46 PM EDT Patient Name: FRANKLIN BURTON ---Ultrasound--- Exam Date/Time 10/21/2019 11:11:54 EDT Exam US Retroperitoneal Complete Ordering Physician FANG SMALLWOOD Accession Number [id number] CPT4 Codes 62161 () Reason For Exam RODERICK on CKD 3 Report Renal ultrasound: 10/21/2019. CLINICAL INFORMATION: Chronic kidney disease. FINDINGS: Sonographic examination of the kidneys was compared to the prior study 05/24/2019. The echogenicity of the kidney cortices is increased. This can be seen with glomerulonephritis, nephrosclerosis or collagen vascular disease. Both kidneys are within normal limits in size. The right kidney measures approximately 8.8 x 4.4 x 4.4 cm. The left kidney measures approximately 9.7 x 4.2 x 4.9 cm. There is a cyst from the inferior aspect of the left kidney. No other contour abnormalities are identified on either side. No hydronephrosis is seen. Cursory examination of the urinary bladder reveals no gross abnormalities. The prostate is enlarged measuring upwards of 6.5 cm in greatest diameter. Of incidental note is splenomegaly. Further evaluation may be warranted. IMPRESSION: Findings consistent with medical renal disease. Splenomegaly. Report Dictated on Workstation: [id number] --- Final --- Dictated: 10/21/2019 1:42 pm Dictating Physician: MD MOON RISA Signed Date and Time: 10/21/2019 1:45 pm Signed by: MD MOON RISA Transcribed Date and Time: 10/21/2019 1:42 [place] Patient Name: FRANKLIN BURTON ---Ultrasound--- Exam Date/Time 10/21/2019 11:11:54 EDT Exam US Retroperitoneal Complete Ordering Physician FANG SMALLWOOD Accession Number [id number] CPT4 Codes 82498 () Reason For Exam RODERICK on CKD 3 Report Renal ultrasound: 10/21/2019. CLINICAL INFORMATION: Chronic kidney disease. FINDINGS: Sonographic examination of the kidneys was compared to the prior study 05/24/2019. The echogenicity of the kidney cortices is increased. This can be seen with glomerulonephritis, nephrosclerosis or collagen vascular disease. Both kidneys are within normal limits in size. The right kidney measures approximately 8.8 x 4.4 x 4.4 cm. The left kidney measures approximately 9.7 x 4.2 x 4.9 cm. There is a cyst from the inferior aspect of the left kidney. No other contour abnormalities are identified on either side. No hydronephrosis is seen. Cursory examination of the urinary bladder reveals no gross abnormalities. The prostate is enlarged measuring upwards of 6.5 cm in greatest diameter. Of incidental note is splenomegaly. Further evaluation may be warranted. IMPRESSION: Findings consistent with medical renal disease. Splenomegaly. Report Dictated on Workstation: [id number] --- Final --- Dictated: 10/21/2019 1:42 pm Dictating Physician: MD MOON RISA Signed Date and Time: 10/21/2019 1:45 pm Signed by: MD MOON RISA Transcribed Date and Time: 10/21/2019 1:42 [place] XR CHEST PORTABLEon 10-21-19 Patient Name: FRANKLIN BURTON ---Diagnostic Radiology--- Exam Date/Time 10/21/2019 17:21:54 EDT Exam CR Chest Portable Ordering Physician MD STYLES LAUREN Accession Number [id number] CPT4 Codes 01867 () Reason For Exam dyspnea, hx of GPA Report Portable chest /10/21/2019: Clinical Information: Dyspnea. Findings: A single AP portable view of the chest was obtained at 1624 hours. Comparison was made to the prior study 07/09/2018. The trachea is midline. The heart is not enlarged. No focal areas of consolidation or volume loss are seen. There are no pleural effusions. The pulmonary vasculature does not appear congested. The visualized bony structures are intact. Impression: No acute process. Report Dictated on Workstation: [id number] --- Final --- Dictated: 10/21/2019 4:41 pm Dictating Physician: MD MOON RISA Signed Date and Time: 10/21/2019 4:41 pm Signed by: MD MOON RISA Transcribed Date and Time: 10/21/2019 4:41 [place] [facility], [facility] Incoming Radiology Results From [facility] - 10/21/2019 5:22 PM EDT Patient Name: FRANKLIN BURTON ---Diagnostic Radiology--- Exam Date/Time 10/21/2019 17:21:54 EDT Exam CR Chest Portable Ordering Physician MD STYLES LAUREN Accession Number [id number] CPT4 Codes 01768 () Reason For Exam dyspnea, hx of GPA Report Portable chest /10/21/2019: Clinical Information: Dyspnea. Findings: A single AP portable view of the chest was obtained at 1624 hours. Comparison was made to the prior study 07/09/2018. The trachea is midline. The heart is not enlarged. No focal areas of consolidation or volume loss are seen. There are no pleural effusions. The pulmonary vasculature does not appear congested. The visualized bony structures are intact. Impression: No acute process. Report Dictated on Workstation: [id number] --- Final --- Dictated: 10/21/2019 4:41 pm Dictating Physician: MD MOON RISA Signed Date and Time: 10/21/2019 4:41 pm Signed by: MD MOON RISA Transcribed Date and Time: 10/21/2019 4:41 [place] US RETROPERITONEAL COMPLETEO rdered By: Fang Smallwood on 05-24-2019 Patient Name: FRANKLIN BURTON ---Ultrasound--- Exam Date/Time 05/24/2019 14:07:40 EST Exam US Retroperitoneal Complete Ordering Physician FANG SMALLWOOD Accession Number [id number] CPT4 Codes 95584 () Reason For Exam ckd Report Retroperitoneal ultrasound, 05/24/2019. Reason for examination: Stage III chronic kidney disease. COMPARISON: Abdominal ultrasound dated April 10, 2015. FINDINGS: The right kidney measures 8.7 x 4.5 x 4.5 cm. The left kidney measures 9.8 x 5.9 x 5.0 cm. There is a cyst in the lower portion of the left kidney measuring 3.0 x 2.6 x 2.3 cm. No other renal lesion is identified. No hydronephrosis or renal calculus is noted. Limited imaging of the urinary bladder demonstrates no mass or calculus. Prevoid bladder volume is approximately 167 mL. Post void bladder volume is approximately 45 mL. The prostate measures approximately 6.1 x 6.5 x 6.2 cm. IMPRESSION: Cyst in the left kidney. Prostatic hypertrophy. Report Dictated on Workstation: [id number] --- Final --- Dictated: 05/24/2019 2:13 pm Dictating Physician: MD HERNANDEZ JOE M Signed Date and Time: 05/24/2019 2:34 pm Signed by: MD HERNANDEZ JOE M Transcribed Date and Time: 05/24/2019 2:13 [facility] Work Phone: [facility] Results From [facility] - 05/24/2019 2:36 PM EST Patient Name: FRANKLIN BURTON ---Ultrasound--- Exam Date/Time 05/24/2019 14:07:40 EST Exam US Retroperitoneal Complete Ordering Physician FANG SMALLWOOD Accession Number [id number] CPT4 Codes 44018 () Reason For Exam ckd Report Retroperitoneal ultrasound, 05/24/2019. Reason for examination: Stage III chronic kidney disease. COMPARISON: Abdominal ultrasound dated April 10, 2015. FINDINGS: The right kidney measures 8.7 x 4.5 x 4.5 cm. The left kidney measures 9.8 x 5.9 x 5.0 cm. There is a cyst in the lower portion of the left kidney measuring 3.0 x 2.6 x 2.3 cm. No other renal lesion is identified. No hydronephrosis or renal calculus is noted. Limited imaging of the urinary bladder demonstrates no mass or calculus. Prevoid bladder volume is approximately 167 mL. Post void bladder volume is approximately 45 mL. The prostate measures approximately 6.1 x 6.5 x 6.2 cm. IMPRESSION: Cyst in the left kidney. Prostatic hypertrophy. Report Dictated on Workstation: [id number] --- Final --- Dictated: 05/24/2019 2:13 pm Dictating Physician: MD HERNANDEZ JOE M Signed Date and Time: 05/24/2019 2:34 pm Signed by: MD HERNANDEZ JOE M Transcribed Date and Time: 05/24/2019 2:13 [facility] Work Phone: LUZ CULTURE-STOOL ([id number])on 08-03-2018 Bacteria identified Cx Nom (Unsp spec) NSS Normal [facility] Work Phone: Comment on above: No Salmonella or Sydney gella recovered. PATIENT NOT FASTINGP ERFORMED BY: CB [facility] [id number] [place] [id number] Information: ADD O T P SRC:ST SRC:ST Bacteria identified Cx Nom (Unsp spec) NCI Normal [facility] Work Phone: Comment on above: No Campylobacter spe cies isolated. PATIENT NOT FASTINGP ERFORMED BY: CB [facility] [id number] [place] [id number] Information: ADD O T P SRC:ST SRC:ST Campylobacter sp identified Org specific cx Nom (St) Final report Normal [facility] Work Phone: Comment on above: PATIENT NOT FASTINGP ERFORMED BY: CB [facility] [id number] [place] [id number] Information: ADD O T P SRC:ST SRC:ST E. coli shiga-like toxin IA Ql (St) Negative Normal [facility] Work Phone: Comment on above: PATIENT NOT FASTINGP ERFORMED BY: CB [facility] [id number] [address] [facility] [id number] Information: ADD O T P SRC:ST SRC:ST Salmonella and Shigella sp identified Org specific cx Nom (St) Final report Normal Comprehensi ve [facility] Work Phone: Comment on above: PATIENT NOT FASTINGP ERFORMED BY: CB [facility] [id number] [address] [facility] [place] [id number] Information: ADD O T P SRC:ST SRC:ST C-DIFFICILE, STOOL ([id number])on 08-03-2018 C. difficile toxin A+B IA Ql (St) Negative Normal [facility] Work Phone: Comment on above: PATIENT NOT FASTINGP ERFORMED BY: CB [facility] [id number] [address] [facility] [place] [id number] LEUKOCYTE COUNT, FECAL ([phone])on 08-03-2018 WBC LM Ql (St) Final report Normal Comprehe nsive [facility] Work Phone: Comment on above: PATIENT NOT FASTINGP ERFORMED BY: CB [facility] [id number] [place] [facility] [place] [id number] WBC LM Ql (St) NWBC Normal Comprehens gavi [facility] Work Phone: Comment on above: No white blood cells seen. PATIENT NOT FASTINGP ERFORMED BY: CB [facility] [id number] [address] [facility] [place] [id number] OCCULT BLOOD FECES SCREEN ([phone])on 08-03-2018 Lower GI hemoglobin IA Ql (St) Negative Normal [facility] Work Phone: Comment on above: PATIENT NOT FASTINGP ERFORMED BY: CB [facility] [id number] [address] [facility] [place] [id number] Ova + Parasite [place] 2018 Ova and parasites identified Concentration Nom (St) NOCP1 Normal Comprehen sive [facility] Work Phone: Comment on above: No ova, cysts, or pa rasites seen. .One negative specimen does not rule out the possibility of aparasitic infection. PATIENT NOT FASTINGP ERFORMED BY: CB [facility] [id number] [address] [facility] [place] [id number] Ova and parasites identified LM Nom (Unsp spec) Final report Normal [facility] Work Phone: Comment on above: These results were o btained using wet preparation(s) and trichromestained smear. This test does not include testing for Cryptosporidiumparvum, Cyclospora, or Microsporidia. PATIENT NOT FASTINGP ERFORMED BY: [facility] [id number] MADAN (ANTINUCLEAR ANTIBODY) ( [id number])on 07-29-2018 Nuclear Ab Ql (S) Negative Normal Compreh ensive [facility] Work Phone: Comment on above: PATIENT NOT FASTINGP ERFORMED BY: [facility] [id number] C-REACTIVE PROTEIN ([id number])on 07-29-2018 CRP mass conc 2.8 mg/L Normal 0.0-4.9 Comprehensi ve [facility] Work Phone: Comment on above: PATIENT NOT FASTINGP ERFORMED BY: [facility] [id number] CBC W/AUTO DIFF WBC (55911)o n 07-29-2018 Basophils #/vol (Bld) 0.0 {x10E3/uL} Normal 0.0-0.2 [facility] Work Phone: Comment on above: PATIENT NOT FASTINGP ERFORMED BY: [facility] [facility] [id number] Basophils/100 WBC (Bld) 0 % Normal C omprehensive [facility] Work Phone: Comment on above: PATIENT NOT FASTINGP ERFORMED BY: [facility] Dbxmrr2855 [facility] [id number] Eosinophils #/vol (Bld) 0.0 {x10E3/uL} Normal 0.0-0.4 [facility] Work Phone: Comment on above: PATIENT NOT FASTINGP ERFORMED BY: [facility] [facility] [id number] Eosinophils/100 WBC (Bld) 0 % Normal [facility] Work Phone: Comment on above: PATIENT NOT FASTINGP ERFORMED BY: MOISES [facility] [id number] [address] [facility] [place] [id number] Erythrocyte distribution width Ratio (RBC) 14.7 % Normal 12.3-15.4 [facility] Work Phone: Comment on above: PATIENT NOT FASTINGP ERFORMED BY: MOISES [facility] [id number] [address] [facility] [id number] Hematocrit Volume Fraction (Bld) 46.2 % Normal 37.5-51.0 [facility] Work Phone: Comment on above: PATIENT NOT FASTINGP ERFORMED BY: MOISES [facility] [id number] [address] [facility] [id number] Hemoglobin mass conc (Bld) 15.5 g/dL Normal 13.0-17.7 [facility] Work Phone: Comment on above: PATIENT NOT FASTINGP ERFORMED BY: MOISES Haris [id number] [address] [facility] [id number] Immature granulocytes #/vol (Bld) 0.0 {x10E3/uL} Normal 0.0-0.1 [facility] Work Phone: Comment on above: PATIENT NOT FASTINGP ERFORMED BY: MOISES Haris [id number] [address] [facility] [id number] Immature granulocytes/100 WBC (Bld) 0 % Normal [facility] Work Phone: Comment on above: PATIENT NOT FASTINGP ERFORMED BY: MOISES [facility] [id number] [address] [facility] [id number] Lymphocytes #/vol (Bld) 1.7 {x10E3/uL} Normal 0.7-3.1 [facility] Work Phone: Comment on above: PATIENT NOT FASTINGP ERFORMED BY: MOISES [facility] [id number] [address] [facility] [place] [id number] Lymphocytes/100 WBC (Bld) 14 % Normal [facility] Work Phone: Comment on above: PATIENT NOT FASTINGP ERFORMED BY: MOISES LabColorie EscalanteWazrky1339 [address] RoadDublin [place] [id number] MCH Entitic mass (RBC) 29.2 pg Normal 26.6-33.0 [facility] Work Phone: Comment on above: PATIENT NOT FASTINGP ERFORMED BY: MOISES LabSyeda EscalanteAxlxrm0145 [address] RoadDublin [place] [id number] MCHC mass conc (RBC) 33.5 g/dL Normal 31.5-35.7 [facility] Work Phone: Comment on above: PATIENT NOT FASTINGP ERFORMED BY: MOISES LabColorie EscalanteAusjok9480 [address]Dublin [place] [id number] MCV Entitic volume (RBC) 87 fL Normal 79-97 [facility] Work Phone: Comment on above: PATIENT NOT FASTINGP ERFORMED BY: MOISES Plata6370 [address] [place] [id number] Monocytes #/vol (Bld) 0.5 {x10E3/uL} Normal 0.1-0.9 [facility] Work Phone: Comment on above: PATIENT NOT FASTINGP ERFORMED BY: MOISES Escalantelin6370 [address]Dublin [place] [id number] Monocytes/100 WBC (Bld) 4 % Normal C [facility] Work Phone: Comment on above: PATIENT NOT FASTINGP ERFORMED BY: MOISES LabSyeda EscalanteIporyn9569 [address] RoadDublin [place] [id number] Neutrophils #/vol (Bld) 9.4 {x10E3/uL} Abnormal 1.4-7.0 [facility] Work Phone: Comment on above: PATIENT NOT FASTINGP ERFORMED BY: MOISES LabColorie EscalanteKmjozw2688 [address]Dublin [place] [id number] Neutrophils/100 WBC (Bld) 82 % Normal [facility] Work Phone: Comment on above: PATIENT NOT FASTINGP ERFORMED BY: MOISES LabColorie EscalanteJiufrb3855 [address]Dublin [place] [id number] Platelets #/vol (Bld) 244 {x10E3/uL} Normal 150-379 [facility] Work Phone: Comment on above: PATIENT NOT FASTINGP ERFORMED BY: MOISES [facility] [id number] [address] [facility] [id number] RBC #/vol (Bld) 5.31 {x10E6/uL} Normal 4.14-5.80 Comp rehensive Internal Medicine Work Phone: Comment on above: PATIENT NOT FASTINGP ERFORMED BY: CB [facility] [id number] [facility] [id number] WBC #/vol (Bld) 11.7 {x10E3/uL} Abnormal 3.4-10.8 Comp rehensive [facility] Work Phone: Comment on above: PATIENT NOT FASTINGP ERFORMED BY: [facility] [id number] [facility] [id number] Folate ([id number])on 07-29-2018 Folate mass conc 6.8 ng/mL Normal Comprehe nsive Internal Medicine Work Phone: Comment on above: A serum folate angelina ntration of less than 3.1 ng/mL isconsidered to represent clinical deficiency. PATIENT NOT FASTINGP ERFORMED BY: [facility] [id number] [facility] [id number] METABOLIC PANEL, COMPREHENSI VE ([id number])on 07-29-2018 Albumin mass conc 4.2 g/dL Normal 3.5-4.8 Compreh ensive [facility] Medicine Work Phone: Comment on above: PATIENT NOT FASTINGP ERFORMED BY: [facility] [id number] [facility] [id number] Albumin/Globulin mass ratio 1.1 {ratio} Abnormal 1.2-2.2 [facility] Work Phone: Comment on above: PATIENT NOT FASTINGP ERFORMED BY: [facility] [id number] [facility] [id number] ALP enzyme act/vol 100 [iU]/L Normal 39-117 Compre hensive Internal Medicine Work Phone: Comment on above: PATIENT NOT FASTINGP ERFORMED BY: CB [facility] [id number] [address] [place] [id number] ALT enzyme act/vol 46 [iU]/L Abnormal 0-44 [facility] Internal Medicine Work Phone: Comment on above: PATIENT NOT FASTINGP ERFORMED BY: CB [facility] [id number] [address] RoadD[address] [place] [id number] AST enzyme act/vol 30 [iU]/L Normal 0-[address] [facility] Work Phone: Comment on above: PATIENT NOT FASTINGP ERFORMED BY: CB [facility] [id number] [address] Road[address] [place] [id number] Bilirubin mass conc 0.4 mg/dL Normal 0.0-1.2 Compr ensive Internal Medicine Work Phone: Comment on above: PATIENT NOT FASTINGP ERFORMED BY: CB [facility] [id number] [address] [place] [id number] Calcium mass conc 9.9 mg/dL Normal 8.6-10.[address] [facility] Work Phone: Comment on above: PATIENT NOT FASTINGP ERFORMED BY: CB [facility] [id number] [address] [place] [id number] Chloride molar conc 96 mmol/L Normal 96-106 Compr [facility] Internal Medicine Work Phone: Comment on above: PATIENT NOT FASTINGP ERFORMED BY: CB [facility] [id number] [address] [place] [id number] CO2 molar conc 23 mmol/L Normal 20-29 Comprehens gavi Internal Medicine Work Phone: Comment on above: PATIENT NOT FASTINGP ERFORMED BY: CB [facility] [id number] [address] [place] [id number] Creatinine mass conc 1.60 mg/dL Abnormal 0.76-1.27 Comp [facility] Work Phone: Comment on above: PATIENT NOT FASTINGP ERFORMED BY: CB [facility] [id number] [address] [place] [id number] GFR/1.73 sq M predicted among blacks CKD-EPI vol rate/area (S/P/Bld) 49 mL/min/1.73 Abnormal Comprehe nsive Internal Medicine Work Phone: Comment on above: PATIENT NOT FASTINGP ERFORMED BY: MOISES Harislorie EscalanteEwpmrr0775 [facility] [id number] GFR/1.73 sq M predicted among non-blacks CKD-EPI vol rate/area (S/P/Bld) 43 mL/min/1.73 Abnormal [facility] Work Phone: Comment on above: PATIENT NOT FASTINGP ERFORMED BY: MOISES LeonoraSyeda [id number] [facility] [id number] Globulin mass conc (S) 3.9 g/dL Normal 1.5-4.5 Co mprehensive [facility] Medicine Work Phone: Comment on above: PATIENT NOT FASTINGP ERFORMED BY: MOISES LabSyeda [id number] [facility] [id number] Glucose mass conc 95 mg/dL Normal 65-99 Compreh ensive Internal Medicine Work Phone: Comment on above: PATIENT NOT FASTINGP ERFORMED BY: MOISES LeonoraSyeda [id number] [facility] [id number] Potassium molar conc 5.0 mmol/L Normal 3.5-5.2 Comp rehensive Internal Medicine Work Phone: Comment on above: PATIENT NOT FASTINGP ERFORMED BY: MOISES LabSyeda [id number] [facility] [id number] Protein mass conc 8.1 g/dL Normal 6.0-8.5 Compreh ensive Internal Medicine Work Phone: Comment on above: PATIENT NOT FASTINGP ERFORMED BY: MOISES LabColorie EscalanteFdzbkr7649 [facility] [id number] Sodium molar conc 135 mmol/L Normal 134-144 Compreh ensive Internal Medicine Work Phone: Comment on above: PATIENT NOT FASTINGP ERFORMED BY: MOISES LabColorie EscalanteQkzirv2055 [facility] [id number] Urea nitrogen mass conc 29 mg/dL Abnormal 8-27 [facility] Work Phone: Comment on above: PATIENT NOT FASTINGP ERFORMED BY: MOISES LeonoraSyeda EscalanteUyaprh9993 [address] [facility] [place] [id number] Urea nitrogen/Creatinine mass ratio 18 mg/mg Normal 10-24 [facility] Work Phone: Comment on above: PATIENT NOT FASTINGP ERFORMED BY: MOISES Escalantelin6370 [facility] [facility] [place] [id number] RHEUMATOID FACTOR-QUANT ([id number])on 07-29-2018 Rheumatoid factor Qn [IU]/mL Normal 0.0-13.9 [facility] Work Phone: Comment on above: PATIENT NOT FASTINGP ERFORMED BY: MOISES Plata6370 [facility] [id number] SED RATE ERYTHROCYTE ([id number]) on 07-29-2018 ESR Velocity (Bld) 8 mm/h Normal 0-[address] [facility] Work Phone: Comment on above: PATIENT NOT FASTINGP ERFORMED BY: MOISES Escalantelin6370 [facility] [id number] TSH ([id number])on 07-29-2018 Thyrotropin Qn 2.030 {uIU/mL} Normal 0.450-4.500 [facility]: Comment on above: PATIENT NOT FASTINGP ERFORMED BY: MOISES Escalantelin6370 [facility] [place] [id number] VITAMIN B-12 (CYANOCOBALAMIN ) ([id number])on 07-29-2018 Cobalamin (Vitamin B12) mass conc 578 pg/mL Normal 232-1245 [facility] Work Phone: Comment on above: PATIENT NOT FASTINGP ERFORMED BY: MOISES Escalantelin6370 [facility] [place] [id number] OT Bone Density DEXA Axial S kenyatta 12-30-2017 OT Bone Density DEXA Axial Skeleton Patient Name: FRANKLIN BURTON Bone Density Exam Date/Time 12/30/2017 09:52:51 EDT Exam OT Bone Density DEXA Axial Skeleton Ordering Physician MD MARILUZ, [facility] Accession Number [id number] CPT4 Codes 92692 () Reason For Exam osteoporosis Report DXA BONE DENSITOMETRY: CLINICAL INDICATION: Osteoporosis COMPARISON: December 26, 2015 TECHNIQUE: Quantitative bone mineral densitometry of the hip and lumbar spine was performed with a dual energy x-ray observed absorptiometry device - HoloWiseBanyan W. Regions of interest were obtained through the left proximal femur and compared to the normal value of the young adult. Regions of interest were also obtained through the lumbar vertebrae with an average value determined and compared with the young adult. The measured bone density minus the bone density of the young normal reference divided by the reference standard deviation is expressed as the T score. Using the same formula adjusting the reference density and standard deviation for age and race determines the Z score. According to World Health Organization criteria: T-score of -1.0 or higher is normal. T-score between -1.0 and -2.5 is low bone density or "osteopenia." T-score of -2.5 or lower is abnormally low, compatible with osteoporosis. T-score of -2.5 or less plus fragility fracture indicates severe osteoporosis." FINDINGS: Hip: Femoral neck Density: 0.655 g/cm2. T-score: -2.0 Z-score: -0.8 Hip: Total hip Density: 0.847 g/cm2. T-score: -1.2 Z-score: -0.5 Comparison from prior examination: The prior comparison exam left total hip bone mineral density was measured as 0.753 g /cm2. Spine: L1-L4 Density 0.911 g/cm2. T-score: -1.6 Z-score: -0.7 Comparison from prior examination: The prior comparison exam lumbar L1-L4 bone mineral density was measured as 0.953 g /cm2. IMPRESSION: Bone mineral density indicative of osteopenia. FRACTURE RISK: The estimated 10 year risk for a hip fracture is 3.0 % and for a major osteoporosis-related fracture is 12 %. (FRAX web version 3.11). RECOMMENDATIONS: General recommendations for prevention of bone loss include: 0301-9987 mg calcium intake per day for adults >50yrs, and no history of renal calculi 800-1000 IU of vitamin D3 per day for adults >50yrs, and no history of renal calculi Weight bearing exercise Discontinue smoking Avoid excessive use of caffeine, soft drinks, and alcoholic beverages. In addition, balance training and fall prevention programs can help reduce the risk of fractures. Pharmacologic treatment recommendations: Initiate pharmacologic treatment in patients with: -Hip or vertebral fracture. -In those with T scores /= 3% or a 10 year major osteoporosis-related fracture probability >/= 20% based on the [place]-adapted WHO fracture risk model (FRAX). Current FDA-approved pharmacologic options for osteoporosis treatment include bisphosphonates (Fosamax), ibandronate (Boniva), risedronate (Actonel), zoledronic acid (Reclast), estrogens and other hormonal therapies (Evista), parathyroid hormone (Forteo), and denosumab (Prolia). Initiation of pharmacologic therapy should happen only after thorough medical evaluation, discussion of risks and benefits, and with regular monitoring of the therapeutic regimen. FOLLOW-UP RECOMMENDATIONS: Patients with osteoporosis or or at high risk for fracture should have follow-up bone density tests. For Medicare patients, routine testing is allowed every 2 years. Patients who have low bone mass (T score -2.0 to -2.49), who are currently on treatment for low bone mass, or having risk factors for accelerated bone loss (glucocorticoids, aromatase inhibitors, etc.), consider repeat DXA in 1-2 years. Patients with osteopenia and no risk factors may consider follow-up every 3-5 years. REFERENCES: National Osteoporosis Foundation. Clinician's Guide to Prevention and Treatment of Osteoporosis. Osteoporosis International. Rajput, 2014. DXA Scan Screening, Reporting (FRAX Score) and Follow-up. Eva of Knowledge Evidence - based Summaries. [employer]. 2017 Report Dictated on Final Dictating Physician: JOY JAMISON Signed Date and Time: 12/30/2017 10:17 am Signed by: JOY JAMISON Transcribed Date and Time: 12/30/2017 10:18 Normal [facility] No Panel Information SARS-CoV-2 & FLU Antigen (Rapid) SARS-CoV-2 (COVID 19) [place] Work Phone: Vital Signs Date Time Vital Sign Value Performing Clinician Facility 11-30-2024 14:01-0400 Body temperature 98.1 [degF] Daniel Marshall MD Work Phone: [facility] 11-30-2024 14:01-0400 Diastolic blood pressure 88 mm[Hg] Daniel Marshall MD Work Phone: [facility] 11-30-2024 14:01-0400 Heart rate 101 /min Daniel Marshall MD Work Phone: [facility] 11-30-2024 14:01-0400 Respiratory rate 18 /min Daniel Marshall MD Work Phone: [facility] 11-30-2024 14:01-0400 SaO2% (BldA) [Mass fraction] 98 % Daniel Marshall MD Work Phone: [facility] 11-30-2024 14:01-0400 Systolic blood pressure 154 mm[Hg] Daniel Marshall MD Work Phone: [facility] 11-26-2024 11:23-0400 Body height 172.7 cm Daniel Marshall MD Work Phone: [facility] 11-25-2024 13:36-0400 Body mass index (BMI) [Ratio] 34.68 kg/m2 Daniel Marshall MD Work Phone: [facility] 11-25-2024 13:36-0400 Body weight 103.42 kg Daniel Marshall MD Work Phone: [facility] 10-15-2024 13:17-0400 Body height 172.[address] Matilde Noguera MD Work Phone: [place] 10-15-2024 13:17-0400 Body mass index (BMI) [Ratio] 34.8 kg/m2 Dr. Matilde Noguera MD Work Phone: [place] 10-15-2024 13:17-0400 Body temperature 98.5 [degF] Dr. Matilde Noguera MD Work Phone: [place] 10-15-2024 13:17-0400 Body weight 103.[address] Matilde Noguera MD Work Phone: [place] 10-15-2024 13:17-0400 Diastolic blood pressure 78 mm[Hg] Dr. Matilde Noguera MD Work Phone: [place] 10-15-2024 13:17-0400 Heart rate 83 /min Dr. Matilde Noguera MD Work Phone: [place] 10-15-2024 13:17-0400 Respiratory rate 19 /min Dr. Matilde Noguera MD Work Phone: [place] 10-15-2024 13:17-0400 SaO2% (BldA) [Mass fraction] 98 % Dr. Matilde Noguera MD Work Phone: [place] 10-15-2024 13:17-0400 Systolic blood pressure 134 mm[Hg] Dr. Matilde Noguera MD Work Phone: [place] 09-07-2024 08:59-0400 Body mass index (BMI) [Ratio] 34.9 kg/m2 Dr. Matilde Noguera MD Work Phone: [place] 09-07-2024 08:59-0400 Body temperature 97.6 [degF] Dr. Matilde Noguera MD Work Phone: [place] 09-07-2024 08:59-0400 Body weight 104.[address] Matilde Noguera MD Work Phone: [place] 09-07-2024 08:59-0400 Diastolic blood pressure 66 mm[Hg] Dr. Matilde Noguera MD Work Phone: [place] 09-07-2024 08:59-0400 Heart rate 74 /min Dr. Matilde Noguera MD Work Phone: [place] 09-07-2024 08:59-0400 Respiratory rate 18 /min Dr. Matilde Noguera MD Work Phone: [place] 09-07-2024 08:59-0400 SaO2% (BldA) [Mass fraction] 98 % Dr. Matilde Noguera MD Work Phone: [place] 09-07-2024 08:59-0400 Systolic blood pressure 112 mm[Hg] Dr. Matilde Noguera MD Work Phone: [place] 06-08-2024 09:47-0500 Body height 172.[address] Matilde Noguera MD Work Phone: [place] 06-08-2024 09:47-0500 Body mass index (BMI) [Ratio] 34.8 kg/m2 Dr. Matilde Noguera MD Work Phone: [place] 06-08-2024 09:47-0500 Body temperature 96.1 [degF] Dr. Matilde Noguera MD Work Phone: [place] 06-08-2024 09:47-0500 Body weight 103.[address] Matilde Noguera MD Work Phone: [place] 06-08-2024 09:47-0500 Diastolic blood pressure 78 mm[Hg] Dr. Matilde Noguera MD Work Phone: [place] 06-08-2024 09:47-0500 Heart rate 61 /min Dr. Matilde Noguera MD Work Phone: [place] 06-08-2024 09:47-0500 Respiratory rate 16 /min Dr. Matilde Noguera MD Work Phone: [place] 06-08-2024 09:47-0500 SaO2% (BldA) [Mass fraction] 98 % Dr. Matilde Noguera MD Work Phone: [place] 06-08-2024 09:47-0500 Systolic blood pressure 112 mm[Hg] Dr. Matilde Noguera MD Work Phone: [place] 05-04-2024 07:26-0500 Body mass index (BMI) [Ratio] 35.6 kg/m2 Dr. Matilde Noguera MD Work Phone: [place] 05-04-2024 07:26-0500 Body temperature 97.9 [degF] Dr. Matilde Noguera MD Work Phone: [place] 05-04-2024 07:26-0500 Body weight 106.[address] Matilde Noguera MD Work Phone: [place] 05-04-2024 07:26-0500 Diastolic blood pressure 78 mm[Hg] Dr. Matilde Noguera MD Work Phone: [place] 05-04-2024 07:26-0500 Heart rate 87 /min Dr. Matilde Noguera MD Work Phone: [place] 05-04-2024 07:26-0500 Respiratory rate 20 /min Dr. Matilde Noguera MD Work Phone: [place] 05-04-2024 07:26-0500 SaO2% (BldA) [Mass fraction] 99 % Dr. Matilde Noguera MD Work Phone: [place] 05-04-2024 07:26-0500 Systolic blood pressure 122 mm[Hg] Dr. Matilde Noguera MD Work Phone: [place] 04-19-2024 19:52-0500 Body temperature 97 [degF] Dr. Matilde Noguera MD Work Phone: [place] 04-19-2024 19:52-0500 Diastolic blood pressure 70 mm[Hg] Dr. Matilde Noguera MD Work Phone: [place] 04-19-2024 19:52-0500 Heart rate 87 /min Dr. Matilde Noguera MD Work Phone: [place] 04-19-2024 19:52-0500 Respiratory rate 17 /min Dr. Matilde Noguera MD Work Phone: [place] 04-19-2024 19:52-0500 SaO2% (BldA) [Mass fraction] 94 % Dr. Matilde Noguera MD Work Phone: [place] 04-19-2024 19:52-0500 Systolic blood pressure 108 mm[Hg] Dr. Matilde Noguera MD Work Phone: [place] 04-19-2024 15:56-0500 Body mass index (BMI) [Ratio] 35.1 kg/m2 Dr. Matilde Noguera MD Work Phone: [place] 04-19-2024 15:56-0500 Body weight 105.[address] Matilde Noguera MD Work Phone: [place] 09-09-2023 09:08-0400 Body height 172.[address] Matilde Noguera Work Phone: [place] 09-09-2023 09:08-0400 Body mass index (BMI) [Ratio] 35.2 kg/m2 Dr. Matilde Noguera Work Phone: [place] 09-09-2023 09:08-0400 Body temperature 98.5 [degF] Dr. Matilde Noguera Work Phone: [place] 09-09-2023 09:08-0400 Body weight 105.[address] Matilde Noguera Work Phone: [place] 09-09-2023 09:08-0400 Diastolic blood pressure 68 mm[Hg] Dr. Matilde Noguera Work Phone: [place] 09-09-2023 09:08-0400 Heart rate 56 /min Dr. Matilde Noguera Work Phone: [place] 09-09-2023 09:08-0400 Respiratory rate 18 /min Dr. Matilde Noguera Work Phone: [place] 09-09-2023 09:08-0400 SaO2% (BldA) [Mass fraction] 98 % Dr. Matilde Noguera Work Phone: [place] 09-09-2023 09:08-0400 Systolic blood pressure 110 mm[Hg] Dr. Matilde Noguera Work Phone: [place] 08-07-2023 09:17-0400 Body height 172.7 cm Sky Kerr MD Work Phone: [facility] 08-07-2023 09:17-0400 Body mass index (BMI) [Ratio] 34.67 kg/m2 Sky Kerr MD Work Phone: [facility] 08-07-2023 09:17-0400 Body weight 103.42 kg Sky Kerr MD Work Phone: [facility] 08-07-2023 09:17-0400 Diastolic blood pressure 65 mm[Hg] Sky Kerr MD Work Phone: [facility] 08-07-2023 09:17-0400 Heart rate 65 /min Sky Kerr MD Work Phone: [facility] 08-07-2023 09:17-0400 Systolic blood pressure 106 mm[Hg] Sky Kerr MD Work Phone: [facility] 07-23-2023 17:12-0500 Heart rate 96 /min Dr. Matilde Noguera Work Phone: [place] 07-23-2023 15:45-0500 Body mass index (BMI) [Ratio] 34 kg/m2 Dr. Matilde Noguera Work Phone: [place] 07-23-2023 15:45-0500 Body temperature 97.6 [degF] Dr. Matilde Noguera Work Phone: [place] 07-23-2023 15:45-0500 Body weight 101.[address] Matilde Noguera Work Phone: [place] 07-23-2023 15:45-0500 Diastolic blood pressure 82 mm[Hg] Dr. Matilde Noguera Work Phone: [place] 07-23-2023 15:45-0500 Respiratory rate 16 /min Dr. Matilde Noguera Work Phone: [place] 07-23-2023 15:45-0500 SaO2% (BldA) [Mass fraction] 97 % Dr. Matilde Noguera Work Phone: [place] 07-23-2023 15:45-0500 Systolic blood pressure 120 mm[Hg] Dr. Matilde Noguera Work Phone: [place] 06-09-2023 10:23-0500 Body mass index (BMI) [Ratio] 34 kg/m2 Dr. Matilde Noguera Work Phone: [place] 06-09-2023 10:23-0500 Body temperature 99.2 [degF] Dr. Matilde Noguera Work Phone: [place] 06-09-2023 10:23-0500 Body weight 101.[address] Matilde Noguera Work Phone: [place] 06-09-2023 10:23-0500 Diastolic blood pressure 68 mm[Hg] Dr. Matilde Noguera Work Phone: [place] 06-09-2023 10:23-0500 Heart rate 70 /min Dr. Matilde Noguera Work Phone: [place] 06-09-2023 10:23-0500 Respiratory rate 18 /min Dr. Matilde Noguera Work Phone: [place] 06-09-2023 10:23-0500 SaO2% (BldA) [Mass fraction] 99 % Dr. Matilde Noguera Work Phone: [place] 06-09-2023 10:23-0500 Systolic blood pressure 112 mm[Hg] Dr. Matilde Noguera Work Phone: [place] 04-02-2023 08:31-0500 Body height 172.[address] Matilde Noguera Work Phone: [place] 04-02-2023 08:31-0500 Body mass index (BMI) [Ratio] 33.3 kg/m2 Dr. Matilde Noguera Work Phone: [place] 04-02-2023 08:31-0500 Body temperature 97.8 [degF] Dr. Matilde Noguera Work Phone: [place] 04-02-2023 08:31-0500 Body weight 99.[address] Matilde Noguera Work Phone: [place] 04-02-2023 08:31-0500 Diastolic blood pressure 84 mm[Hg] Dr. Matilde Noguera Work Phone: [place] 04-02-2023 08:31-0500 Heart rate 82 /min Dr. Matilde Noguera Work Phone: [place] 04-02-2023 08:31-0500 Respiratory rate 16 /min Dr. Matilde Noguera Work Phone: [place] 04-02-2023 08:31-0500 SaO2% (BldA) [Mass fraction] 99 % Dr. Matilde Noguera Work Phone: [place] 04-02-2023 08:31-0500 Systolic blood pressure 128 mm[Hg] Dr. Matilde Noguera Work Phone: [place] 03-17-2023 19:36-0400 Body height 172.[address] Matilde Noguera Work Phone: [place] 03-17-2023 19:36-0400 Body temperature 97.5 [degF] Dr. Matilde Noguera Work Phone: [place] 03-17-2023 19:36-0400 Diastolic blood pressure 70 mm[Hg] Dr. Matilde Noguera Work Phone: [place] 03-17-2023 19:36-0400 Heart rate 104 /min Dr. Matilde Noguera Work Phone: [place] 03-17-2023 19:36-0400 Respiratory rate 16 /min Dr. Matilde Noguera Work Phone: [place] 03-17-2023 19:36-0400 SaO2% (BldA) [Mass fraction] 98 % Dr. Matilde Noguera Work Phone: [place] 03-17-2023 19:36-0400 Systolic blood pressure 119 mm[Hg] Dr. Matilde Noguera Work Phone: [place] 03-12-2023 09:56-0400 Body temperature 97.7 [degF] Dr. Matilde Noguera Work Phone: [place] 03-12-2023 09:56-0400 Diastolic blood pressure 60 mm[Hg] Dr. Matilde Noguera Work Phone: [place] 03-12-2023 09:56-0400 Heart rate 78 /min Dr. Matilde Noguera Work Phone: [place] 03-12-2023 09:56-0400 Respiratory rate 16 /min Dr. Matilde Noguera Work Phone: [place] 03-12-2023 09:56-0400 SaO2% (BldA) [Mass fraction] 99 % Dr. Matilde Noguera Work Phone: [place] 03-12-2023 09:56-0400 Systolic blood pressure 106 mm[Hg] Dr. Matilde Noguera Work Phone: [place] 02-28-2023 21:52-0400 Body temperature 98.2 [degF] Dr. Matilde Noguera Work Phone: [place] 02-28-2023 21:52-0400 Diastolic blood pressure 71 mm[Hg] Dr. Matilde Noguera Work Phone: [place] 02-28-2023 21:52-0400 Heart rate 96 /min Dr. Matilde Noguera Work Phone: [place] 02-28-2023 21:52-0400 Respiratory rate 18 /min Dr. Matilde Noguera Work Phone: [place] 02-28-2023 21:52-0400 SaO2% (BldA) [Mass fraction] 97 % Dr. Matilde Noguera Work Phone: [place] 02-28-2023 21:52-0400 Systolic blood pressure 149 mm[Hg] Dr. Matilde Noguera Work Phone: [place] 02-28-2023 21:16-0400 Diastolic blood pressure 81 mm[Hg] Dr. Matilde Noguera Work Phone: [place] 02-28-2023 21:16-0400 Heart rate 91 /min Dr. Matilde Noguera Work Phone: [place] 02-28-2023 21:16-0400 Systolic blood pressure 158 mm[Hg] Dr. Matilde Noguera Work Phone: [place] 02-28-2023 15:15-0400 Body temperature 98.4 [degF] Dr. Matilde Noguera Work Phone: [place] 02-28-2023 15:15-0400 Respiratory rate 16 /min Dr. Matilde Noguera Work Phone: [place] 02-28-2023 15:15-0400 SaO2% (BldA) [Mass fraction] 97 % Dr. Matilde Noguera Work Phone: [place] 02-28-2023 14:08-0400 Body mass index (BMI) [Ratio] 32 kg/m2 Dr. Matilde Noguera Work Phone: [place] 02-28-2023 14:08-0400 Body weight 95.[address] Matilde Noguera Work Phone: [place] 02-27-2023 13:07-0400 Body height 172.[address] Matilde Noguera Work Phone: [place] 02-27-2023 07:40-0400 Body temperature 98.7 [degF] Dr. Matilde Noguera Work Phone: [place] 02-27-2023 07:40-0400 Diastolic blood pressure 86 mm[Hg] Dr. Matilde Noguera Work Phone: [place] 02-27-2023 07:40-0400 Heart rate 114 /min Dr. Matilde Noguera Work Phone: [place] 02-27-2023 07:40-0400 Respiratory rate 19 /min Dr. Matilde Noguera Work Phone: [place] 02-27-2023 07:40-0400 SaO2% (BldA) [Mass fraction] 97 % Dr. Matilde Noguera Work Phone: [place] 02-27-2023 07:40-0400 Systolic blood pressure 137 mm[Hg] Dr. Matilde Noguera Work Phone: [place] 02-27-2023 04:09-0400 Body height 170.[address] Matilde Noguera Work Phone: [place] 02-27-2023 04:09-0400 Body mass index (BMI) [Ratio] 33.3 kg/m2 Dr. Matilde Noguera Work Phone: [place] 02-27-2023 04:09-0400 Body weight 96.[address] Matilde Noguera Work Phone: [place] 02-25-2023 17:56-0400 Body mass index (BMI) [Ratio] 32.2 kg/m2 Dr. Matilde Noguera Work Phone: [place] 02-25-2023 17:56-0400 Body temperature 97 [degF] Dr. Matilde Noguera Work Phone: [place] 02-25-2023 17:56-0400 Body weight 96.[address] Matilde Noguera Work Phone: [place] 02-25-2023 17:56-0400 Diastolic blood pressure 75 mm[Hg] Dr. Matilde Noguera Work Phone: [place] 02-25-2023 17:56-0400 Heart rate 96 /min Dr. Matilde Noguera Work Phone: [place] 02-25-2023 17:56-0400 Respiratory rate 16 /min Dr. Matilde Noguera Work Phone: [place] 02-25-2023 17:56-0400 SaO2% (BldA) [Mass fraction] 98 % Dr. Matilde Noguera Work Phone: [place] 02-25-2023 17:56-0400 Systolic blood pressure 155 mm[Hg] Dr. Matilde Noguera Work Phone: [place] 01-14-2023 09:38-0400 Body mass index (BMI) [Ratio] 31.7 kg/m2 Dr. Matilde Noguera Work Phone: [place] 01-14-2023 09:38-0400 Body temperature 97.9 [degF] Dr. Matilde Noguera Work Phone: [place] 01-14-2023 09:38-0400 Body weight 94.[address] Matilde Noguera Work Phone: [place] 01-14-2023 09:38-0400 Diastolic blood pressure 80 mm[Hg] Dr. Matilde Noguera Work Phone: [place] 01-14-2023 09:38-0400 Heart rate 70 /min Dr. Matilde Noguera Work Phone: [place] 01-14-2023 09:38-0400 Respiratory rate 16 /min Dr. Matilde Noguera Work Phone: [place] 01-14-2023 09:38-0400 SaO2% (BldA) [Mass fraction] 97 % Dr. Matilde Noguera Work Phone: [place] 01-14-2023 09:38-0400 Systolic blood pressure 130 mm[Hg] Dr. Matilde Noguera Work Phone: [place] 12-31-2022 16:45-0400 Diastolic blood pressure 75 mm[Hg] Elroy Thomas MD Work Phone: [facility] 12-31-2022 16:45-0400 Heart rate 77 /min Elroy Thomas MD Work Phone: [facility] 12-31-2022 16:45-0400 Respiratory rate 16 /min Elroy Thomas MD Work Phone: [facility] 12-31-2022 16:45-0400 SaO2% (BldA) [Mass fraction] 95 % Elroy Thomas MD Work Phone: [facility] 12-31-2022 16:45-0400 Systolic blood pressure 127 mm[Hg] Elroy Thomas MD Work Phone: [facility] 12-31-2022 14:40-0400 Body temperature 97 [degF] Elroy Thomas MD Work Phone: [facility] 12-31-2022 12:39-0400 Body height 162.6 cm Elroy Thomas MD Work Phone: [facility] [employer] 12-31-2022 12:39-0400 Body mass index (BMI) [Ratio] 36.73 kg/m2 Elroy Thomas MD Work Phone: [facility] [employer] 12-31-2022 12:39-0400 Body weight 97.07 kg Elroy Thomas MD Work Phone: [facility] 12-16-2022 13:45-0400 Body height 172.7 cm Elroy Thomas MD Work Phone: [facility] 12-16-2022 13:45-0400 Body mass index (BMI) [Ratio] 31.93 kg/m2 Elroy Thomas MD Work Phone: [facility] 12-16-2022 13:45-0400 Body temperature 98.6 [degF] Elroy Thomas MD Work Phone: [facility] 12-16-2022 13:45-0400 Body weight 95.25 kg Elroy Thomas MD Work Phone: [facility] 12-16-2022 13:45-0400 Diastolic blood pressure 77 mm[Hg] Elroy Thomas MD Work Phone: [facility] 12-16-2022 13:45-0400 Heart rate 91 /min Elroy Thomas MD Work Phone: [facility] 12-16-2022 13:45-0400 Systolic blood pressure 133 mm[Hg] Elroy Thomas MD Work Phone: [facility] 12-01-2022 11:37-0400 Body temperature 98.8 [degF] Ilene Praisler-Wood FACING CUTTING MACHINE OPERATOR.WHEEL SETTER Work Phone: [facility] 12-01-2022 11:37-0400 Body weight 96.62 kg Ilene Praisler-Wood FACING CUTTING MACHINE OPERATOR.WHEEL SETTER Work Phone: [facility] 12-01-2022 11:37-0400 Diastolic blood pressure 70 mm[Hg] Ilene Praisler-Wood FACING CUTTING MACHINE OPERATOR.WHEEL SETTER Work Phone: [facility] 12-01-2022 11:37-0400 Heart rate 63 /min Ilene Praisler-Wood FACING CUTTING MACHINE OPERATOR.WHEEL SETTER Work Phone: [facility] 12-01-2022 11:37-0400 Respiratory rate 18 /min Ilene Praisler-Wood FACING CUTTING MACHINE OPERATOR.WHEEL SETTER Work Phone: [facility] 12-01-2022 11:37-0400 SaO2% (BldA) [Mass fraction] 97 % Ilene Praisler-Wood FACING CUTTING MACHINE OPERATOR.WHEEL SETTER Work Phone: [facility] 12-01-2022 11:37-0400 Systolic blood pressure 110 mm[Hg] Ilene Praisler-Wood FACING CUTTING MACHINE OPERATOR.WHEEL SETTER Work Phone: [facility] 11-28-2022 09:59-0400 Body mass index (BMI) [Ratio] 32.5 kg/m2 Dr. Matilde Noguera Work Phone: [place] 11-28-2022 09:59-0400 Body temperature 97.8 [degF] Dr. Matilde Noguera Work Phone: [place] 11-28-2022 09:59-0400 Body weight 97.[address] Matilde Noguera Work Phone: [place] 11-28-2022 09:59-0400 Diastolic blood pressure 60 mm[Hg] Dr. Matilde Noguera Work Phone: [place] 11-28-2022 09:59-0400 Heart rate 67 /min Dr. Matilde Noguera Work Phone: [place] 11-28-2022 09:59-0400 Respiratory rate 16 /min Dr. Matilde Noguera Work Phone: [place] 11-28-2022 09:59-0400 SaO2% (BldA) [Mass fraction] 98 % Dr. Matilde Noguera Work Phone: [place] 11-28-2022 09:59-0400 Systolic blood pressure 110 mm[Hg] Dr. Matilde Noguera Work Phone: [place] 11-27-2022 06:40-0400 Diastolic blood pressure 71 mm[Hg] Dr. Matilde Noguera Work Phone: [place] 11-27-2022 06:40-0400 Heart rate 65 /min Dr. Matilde Noguera Work Phone: [place] 11-27-2022 06:40-0400 Respiratory rate 18 /min Dr. Matilde Noguera Work Phone: [place] 11-27-2022 06:40-0400 SaO2% (BldA) [Mass fraction] 99 % Dr. Matilde Noguera Work Phone: [place] 11-27-2022 06:40-0400 Systolic blood pressure 134 mm[Hg] Dr. Matilde Noguera Work Phone: [place] 11-27-2022 03:50-0400 Body height 172.[address] Matilde Noguera Work Phone: [place] 11-27-2022 03:50-0400 Body mass index (BMI) [Ratio] 33.2 kg/m2 Dr. Matilde Noguera Work Phone: [place] 11-27-2022 03:50-0400 Body temperature 97.6 [degF] Dr. Matilde Noguera Work Phone: [place] 11-27-2022 03:50-0400 Body weight 99.[address] Matilde Noguera Work Phone: [place] 11-09-2022 08:10-0400 Respiratory rate 20 /min Dr. Matilde Noguera Work Phone: [place] 11-09-2022 06:10-0400 Body height 172.[address] Matilde Noguera Work Phone: [place] 11-09-2022 06:10-0400 Body mass index (BMI) [Ratio] 33.5 kg/m2 Dr. Matilde Noguera Work Phone: [place] 11-09-2022 06:10-0400 Body temperature 96 [degF] Dr. Matilde Noguera Work Phone: [place] 11-09-2022 06:10-0400 Body weight 99.[address] Matilde Noguera Work Phone: [place] 11-09-2022 06:10-0400 Diastolic blood pressure 122 mm[Hg] Dr. Matilde Noguera Work Phone: [place] 11-09-2022 06:10-0400 Heart rate 86 /min Dr. Matilde Noguera Work Phone: [place] 11-09-2022 06:10-0400 SaO2% (BldA) [Mass fraction] 99 % Dr. Matilde Noguera Work Phone: [place] 11-09-2022 06:10-0400 Systolic blood pressure 203 mm[Hg] Dr. Matilde Noguera Work Phone: [place] 08-29-2022 10:00-0400 Body height 167.[address] Matilde Noguera Work Phone: [place] 08-29-2022 10:00-0400 Body mass index (BMI) [Ratio] 33.2 kg/m2 Dr. Matilde Noguera Work Phone: [place] 08-29-2022 10:00-0400 Body temperature 97.2 [degF] Dr. Matilde Noguera Work Phone: [place] 08-29-2022 10:00-0400 Body weight 93.[address] Matilde Noguera Work Phone: [place] 08-29-2022 10:00-0400 Diastolic blood pressure 70 mm[Hg] Dr. Matilde Noguera Work Phone: [place] 08-29-2022 10:00-0400 Heart rate 63 /min Dr. Matilde Noguera Work Phone: [place] 08-29-2022 10:00-0400 Respiratory rate 14 /min Dr. Matilde Noguera Work Phone: [place] 08-29-2022 10:00-0400 SaO2% (BldA) [Mass fraction] 96 % Dr. Matilde Noguera Work Phone: [place] 08-29-2022 10:00-0400 Systolic blood pressure 124 mm[Hg] Dr. Matilde Noguera Work Phone: [place] 06-25-2022 10:55-0500 Body temperature 98.6 [degF] Dr. Matilde Noguera Work Phone: [place] 06-25-2022 10:55-0500 Diastolic blood pressure 61 mm[Hg] Dr. Matilde Noguera Work Phone: [place] 06-25-2022 10:55-0500 Heart rate 62 /min Dr. Matilde Noguera Work Phone: [place] 06-25-2022 10:55-0500 Respiratory rate 16 /min Dr. Matilde Noguera Work Phone: [place] 06-25-2022 10:55-0500 SaO2% (BldA) [Mass fraction] 96 % Dr. Matilde Noguera Work Phone: [place] 06-25-2022 10:55-0500 Systolic blood pressure 125 mm[Hg] Dr. Matilde Noguera Work Phone: [place] 06-25-2022 08:32-0500 Body height 167.[address] Matilde Noguera Work Phone: [place] 06-25-2022 08:32-0500 Body mass index (BMI) [Ratio] 33.4 kg/m2 Dr. Matilde Noguera Work Phone: [place] 06-25-2022 08:32-0500 Body weight [address] Matilde Noguera Work Phone: [place] 06-14-2022 09:05-0500 Body temperature 97.2 [degF] Dr. Matilde Noguera Work Phone: [place] 06-14-2022 09:05-0500 Body weight 94.[address] Matilde Noguera Work Phone: [place] 06-14-2022 09:05-0500 Diastolic blood pressure 80 mm[Hg] Dr. Matilde Noguera Work Phone: [place] 06-14-2022 09:05-0500 Heart rate 61 /min Dr. Matilde Noguera Work Phone: [place] 06-14-2022 09:05-0500 Respiratory rate 17 /min Dr. Matilde Noguera Work Phone: [place] 06-14-2022 09:05-0500 SaO2% (BldA) [Mass fraction] 99 % Dr. Matilde Noguera Work Phone: [place] 06-14-2022 09:05-0500 Systolic blood pressure 146 mm[Hg] Dr. Matilde Noguera Work Phone: [place] 06-03-2022 16:31-0500 Body mass index (BMI) [Ratio] 31.7 kg/m2 Dr. Matilde Noguera Work Phone: [place] 06-03-2022 16:31-0500 Body temperature 97.7 [degF] Dr. Matilde Noguera Work Phone: [place] 06-03-2022 16:31-0500 Body weight 94.[address] Matilde Noguera Work Phone: [place] 06-03-2022 16:31-0500 Diastolic blood pressure 80 mm[Hg] Dr. Matilde Noguera Work Phone: [place] 06-03-2022 16:31-0500 Heart rate 57 /min Dr. Matilde Noguera Work Phone: [place] 06-03-2022 16:31-0500 Respiratory rate 16 /min Dr. Matilde Noguera Work Phone: [place] 06-03-2022 16:31-0500 SaO2% (BldA) [Mass fraction] 99 % Dr. Matilde Noguera Work Phone: [place] 06-03-2022 16:31-0500 Systolic blood pressure 148 mm[Hg] Dr. Matilde Noguera Work Phone: [place] 01-19-2022 14:17-0400 SaO2% (BldA) [Mass fraction] 97 % RAHEL ESCALONAELL Work Phone: [place] Work Phone: 01-19-2022 14:13-0400 Body temperature 98 [degF] RAHEL MATA Work Phone: [place] Work Phone: 01-19-2022 14:13-0400 Diastolic blood pressure 78 mm[Hg] RAHEL ESCALONAELL Work Phone: [place] Work Phone: 01-19-2022 14:13-0400 Heart rate 82 /min RAHEL ESCALONAELL Work Phone: [place] Work Phone: 01-19-2022 14:13-0400 Respiratory rate 18 /min RAHEL MATA Work Phone: [place] Work Phone: 01-19-2022 14:13-0400 Systolic blood pressure 156 mm[Hg] RAHEL VOSSONNELL Work Phone: [place] Work Phone: 01-19-2022 11:21-0400 Body height 172.72 cm RAHEL [facility] Work Phone: [place] Work Phone: 01-19-2022 11:21-0400 Body [facility].2 [facility] [place] Work Phone: 01-18-2022 23:45-0400 Body mass index (BMI) [Ratio] 30.5 kg/m2 [facility] Work Phone: [place] Work Phone: 01-18-2022 23:37-0400 Body temperature 98.7 [degF] [facility] Work Phone: 01-18-2022 23:37-0400 Diastolic blood pressure 94 mm[Hg] [place] Work Phone: 01-18-2022 23:37-0400 Heart rate 86 /min [facility] Work Phone: 01-18-2022 23:37-0400 Respiratory rate 13 /min [facility] Work Phone: 01-18-2022 23:37-0400 SaO2% (BldA) [Mass fraction] 97 % [place] Work Phone: 01-18-2022 23:37-0400 Systolic blood pressure 171 mm[Hg] [place] Work Phone: 01-18-2022 18:15-0400 Body height 167.64 cm [facility] Work Phone: 01-18-2022 18:15-0400 Body mass index (BMI) [Ratio] 33.7 kg/m2 [place] Work Phone: 01-18-2022 18:15-0400 Body weight 94.8 kg [facility] Work Phone: 04-25-2020 11:26-0500 BMI (Body Mass Index) 34.95 kg/m2 [facility] [place] 04-25-2020 11:26-0500 Body Temperature 100.6 [degF] Cornel Lozano [facility] [place] 04-25-2020 11:26-0500 Body weight 95.25 kg Cornel Lozano [facility] [place] 04-25-2020 11:26-0500 BP Diastolic 86 mm[Hg] [facility] [place] 04-25-2020 11:26-0500 BP Systolic 120 mm[Hg] [facility] [place] 04-25-2020 11:26-0500 Height 165.1 cm [facility] [place] 04-25-2020 11:26-0500 Pulse (Heart Rate) 83 /min Cornel Narayanan [facility] [place] 04-25-2020 11:26-0500 Pulse Oximetry 96 % [facility] [place] 04-25-2020 11:26-0500 Respiratory Rate 16 /min Cornel Lozano [facility] [place] 04-07-2020 06:09-0500 Body Temperature 98.1 [degF] [facility] [place] 04-07-2020 06:09-0500 BP Diastolic 78 mm[Hg] [facility]ravo [facility] [place] [facility] [place] 04-07-2020 06:09-0500 BP Systolic 150 mm[Hg] [facility]ravo [facility] [place] 04-07-2020 06:09-0500 Pulse (Heart Rate) 91 /min [facility] [place] 04-07-2020 06:09-0500 Pulse Oximetry 95 % [facility] [place] 04-07-2020 06:09-0500 Respiratory Rate 18 /min [facility] [place] 04-06-2020 08:50-0500 BMI (Body Mass Index) 35.02 kg/m2 [facility] [place] 04-06-2020 08:50-0500 Body weight 98.43 kg [facility] [place] 04-06-2020 08:50-0500 Height 167.6 cm [facility] [place] 03-14-2020 09:59-0400 BMI (Body Mass Index) 35.15 kg/m2 [facility] [place] 03-14-2020 09:59-0400 Body Temperature 97.2 [degF] [facility] [place] 03-14-2020 09:59-0400 Body weight 98.79 kg Bravo [facility] [place] 03-14-2020 09:59-0400 BP Diastolic 85 mm[Hg] Bravo Zarco [facility] [place] , [place] 03-14-2020 09:59-0400 BP Systolic 135 mm[Hg] Bravo Zarco [facility] [place] 03-14-2020 09:59-0400 Height 167.6 cm [facility] [place] [facility] [place] 03-14-2020 09:59-0400 Pulse (Heart Rate) 65 /min Bravo Narayanan [facility] [place] 03-14-2020 09:59-0400 Pulse Oximetry 98 % Bravo Narayanan [facility] [place] , [place] 12-15-2019 10:27-0400 Body Temperature 98.6 [degF] Daniel [facility] [place] 12-15-2019 10:27-0400 BP Diastolic 84 mm[Hg] [facility] [place] [facility] [place] 12-15-2019 10:27-0400 BP Systolic 137 mm[Hg] [facility] [place] [facility] [place] 12-15-2019 10:27-0400 Pulse (Heart Rate) 60 /min Daniel [facility] [place] 12-15-2019 10:27-0400 Pulse Oximetry 99 % [facility] [place] 12-15-2019 10:27-0400 Respiratory Rate 18 /min [facility] [place] 12-13-2019 18:30-0400 BMI (Body Mass Index) 31.47 kg/m2 [facility] [place] 12-13-2019 18:30-0400 Body weight 88.45 kg Daniel [facility] [place] , [place] 12-13-2019 18:30-0400 Height 167.6 cm Daniel Marshall [facility] , [place] 11-15-2019 08:15-0400 BMI (Body Mass Index) 32.56 kg/m2 Fang Narayanan [facility] [place] 11-15-2019 08:15-0400 Body Temperature 97.7 [degF] Fang Smallwood [facility] [place] 11-15-2019 08:15-0400 Body weight 91.49 kg Fang [facility] [place] 11-15-2019 08:15-0400 BP Diastolic 76 mm[Hg] Fang Smallwood [facility] 11-15-2019 08:15-0400 BP Systolic 127 mm[Hg] Fang Smallwood [facility] [place] 11-15-2019 08:150400 Height 167.6 cm Fang Smallwood [facility], [place] 11-15-2019 08:15-0400 Pulse (Heart Rate) 51 /min [facility] [place] 11-15-2019 08:15-0400 Respiratory Rate 18 /min [facility] [place] 11-08-2019 12:21-0400 BP Diastolic 70 mm[Hg] Fang Smallwood [facility] 11-08-2019 12:21-0400 BP Systolic 122 mm[Hg] Fang Smallwood [facility] 11-08-2019 12:21-0400 Pulse (Heart Rate) 61 /min [facility] [place] 11-08-2019 12:21-0400 Respiratory Rate 16 /min Fang Smallwood [facility] [place] 11-08-2019 08:13-0400 BMI (Body Mass Index) 32.73 kg/m2 Fang Narayanan [facility], [place] 11-08-2019 08:13-0400 Body Temperature 98.2 [degF] [facility] [place] 11-08-2019 08:13-0400 Body weight 91.99 kg Fang [facility] [place] 11-08-2019 08:13-0400 Height 167.6 cm Fang Smallwood [facility] [place] 11-01-2019 12:15-0400 BP Diastolic 79 mm[Hg] Fang [facility]wood [facility] [place] 11-01-2019 12:15-0400 BP Systolic 149 mm[Hg] [facility] [place] 11-01-2019 12:15-0400 Pulse (Heart Rate) 57 /min Fangceasar [facility] [place] 11-01-2019 12:15-0400 Respiratory Rate 14 /min Fang [facility] 11-01-2019 08:11-0400 BMI (Body Mass Index) 32.6 kg/m2 Fang [facility] 11-01-2019 08:11-0400 Body Temperature 97.59 [degF] Fang [facility] [place] 11-01-2019 08:11-0400 Body weight 91.63 kg Fang [facility] [place] 11-01-2019 08:11-0400 Height 167.6 cm Fang Smallwood [facility] [place] 10-25-2019 16:58-0400 Body Temperature 97.39 [degF] [facility] [place] 10-25-2019 16:58-0400 BP Diastolic 83 mm[Hg] [facility] [place] 10-25-2019 16:58-0400 BP Systolic 136 mm[Hg] [facility] [place] 10-25-2019 16:58-0400 Pulse (Heart Rate) 74 /min [facility] [place] 10-25-2019 16:58-0400 Pulse Oximetry 98 % [facility] [place] 10-25-2019 16:58-0400 Respiratory Rate 16 /min [facility] [place] 10-25-2019 08:45-0400 BMI (Body Mass Index) 31.97 kg/m2 [facility] [place] 10-25-2019 08:45-0400 Body weight 89.86 kg Nimrit Lotey [facility] , [place] 10-25-2019 08:45-0400 Height 167.6 cm Marya Ramos [facility] , [place] 04-02-2019 10:40-0500 Body Temperature 98.4 [degF] Fang Smallwood [facility], [place] 04-02-2019 10:40-0500 BP Diastolic 77 mm[Hg] [facility] [place] 04-02-2019 10:40-0500 BP Systolic 138 mm[Hg] [facility] [place] 04-02-2019 10:40-0500 Pulse (Heart Rate) 75 /[facility] [place] 04-02-2019 10:40-0500 Respiratory Rate 17 /min Fang [facility] rexl[facility]ta [facility], [place] 08-12-2018 11:15-0400 BMI (Body Mass Index) 36.07 kg/m2 Abby Arango [facility] Work Phone: 08-12-2018 11:15-0400 BP Diastolic 88 mm[Hg] Abby Arango [facility] Work Phone: Comment on above: Patient Position: Sitting; Cuff Location : Left Arm; Cuff Size: Large 08-12-2018 11:15-0400 BP Systolic 132 mm[Hg] Abby Arango [facility] Work Phone: Comment on above: Patient Position: Sitting; Cuff Location : Left Arm; Cuff Size: Large 08-12-2018 11:15-0400 BSA (Body Surface Area) 2 m2 Abby Arango [facility] Work Phone: 08-12-2018 11:15-0400 Height 162.56 cm Abby Arango [facility] Work Phone: 08-12-2018 11:15-0400 Pulse (Heart Rate) 62 /min Abby Arango [facility] Work Phone: Comment on above: Pattern: Regular 08-12-2018 11:15-0400 Pulse Oximetry 97 % Abby Arango [facility] Work Phone: Comment on above: Room air 08-12-2018 11:15-0400 Respiratory Rate 18 /min Abby Arango [facility] Work Phone: Comment on above: Pattern: Unlabored 08-12-2018 11:15-0400 Weight 95.31 kg Abby Arango [facility] Work Phone: 07-29-2018 10:35-0400 BMI (Body Mass Index) 36.05 kg/m2 Abby Arango [facility] Work Phone: 07-29-2018 10:35-0400 Body Temperature 97.2 [degF] Abby Arango [facility] Work Phone: Comment on above: Method: Temporal 07-29-2018 10:35-0400 BP Diastolic 90 mm[Hg] Abby Arango [facility] Work Phone: Comment on above: Patient Position: Sitting; Cuff Location : Left Arm; Cuff Size: Standard 07-29-2018 10:35-0400 BP Systolic 137 mm[Hg] Abby Arango [facility] Work Phone: Comment on above: Patient Position: Sitting; Cuff Location : Left Arm; Cuff Size: Standard 07-29-2018 10:35-0400 BSA (Body Surface Area) 2 m2 Abby Arango [facility] Work Phone: 07-29-2018 10:35-0400 Height 162.56 cm Abby Arango [facility] Work Phone: 07-29-2018 10:35-0400 Pulse (Heart Rate) 54 /min Abby Arango [facility] Work Phone: Comment on above: Pattern: Regular 07-29-2018 10:35-0400 Pulse Oximetry 99 % Abby Arango [facility] Work Phone: Comment on above: Room air 07-29-2018 10:35-0400 Respiratory Rate 16 /min Abby Arango [facility] Work Phone: Comment on above: Pattern: Unlabored 07-29-2018 10:35-0400 Weight 95.26 kg Abby Malagon [facility] Work Phone: Encounters Encounter Date Encounter Type Care Provider Facility [facility] Start: 11-26-2024 End: 11-26-2024 ambulatory 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 Work Phone: Start: 10-15-2024 End: 10-15-[address] Matilde Noguera MD Work Phone: [facility] Work Phone: Start: 09-10-2024 End: 09-10-2024 ambulatory INO SUMMERS [facility] Start: 09-07-2024 End: 09-07-[address] Matilde Noguera MD [facility] Work Phone: Start: 09-07-2024 End: 09-07-2024 ambulatory Matilde Noguera Facility:[facility] Start: 07-20-2024 End: 07-20-[address] Matilde Noguera MD Work Phone: [place] Work Phone: Start: 07-20-2024 End: 07-20-[address] Kael Decker MD -Laboratory Work Phone: Start: 07-20-2024 End: 07-20-2024 ambulatory Kael Decker Facility:[place] Start: 06-08-2024 End: 06-08-[address] Matilde Noguera MD -[facility] Work Phone: Start: 06-08-2024 End: 06-08-2024 ambulatory Matilde Noguera Facility:[facility] Start: 05-04-2024 End: 05-04-[address] Matilde Noguera MD -[facility] Work Phone: Start: 05-04-2024 End: 05-04-2024 ambulatory Matilde Noguera Facility:[facility] Start: 04-19-2024 End: 04-19-2024 Emergency department patient visit Dr. Jesus Christian DO -Emergency Department Work Phone: Start: 03-09-2024 End: 03-09-2024 ambulatory Matilde Noguera Facility:[facility] Start: 03-09-2024 End: 03-09-2024 ambulatory Matilde Noguera Facility:[place] Start: 01-27-2024 End: 01-27-2024 ambulatory [facility] Facility:[place] Start: 01-15-2024 End: [facility] Start: 12-11-2023 End: 12-11-2023 ambulatory Matilde Noguera Facility:[facility] Start: 09-09-2023 End: 09-09-[address] Matilde Noguera Work Phone: [place] Work Phone: Start: 09-09-2023 End: 09-09-[address] Matilde Noguera Work Phone: [facility] Work Phone: Start: 08-07-2023 End: 08-07-2023 Office outpatient new 30 minutes Sky Kerr MD Work Phone: [facility] Comment on above: Pain due to total hi p replacement, initial encounter ([facility]) ([facility]); H/O total hip arthroplasty, right; Trochanteric bursitis of right hip Start: 08-07-2023 End: 08-07-2023 Subsequent hospital visit by physician Sky Kerr MD Work Phone: [facility] X-ray Imaging Comment on above: Pain due to total hi p replacement, initial encounter ([facility]) ([facility]) Start: 07-23-2023 End: 07-23-[address] Matilde Noguera Work Phone: [facility] Internal Medicine Work Phone: Start: 06-09-2023 End: 06-09-[address] Matilde Noguera Work Phone: [facility] Internal Medicine Work Phone: Start: 05-26-2023 End: 05-26-[address] Matilde Noguera Work Phone: [place] Work Phone: Start: 05-26-2023 End: 05-26-[address] Matilde Noguera Work Phone: [place] Work Phone: Start: 04-18-2023 Non-patient / Non-visit Dr. Moon Work Phone: [facility] Internal Medicine Work Phone: Start: 04-03-2023 End: 04-03-[address] Matilde Noguera Work Phone: [place] Work Phone: Start: 04-03-2023 End: 04-03-[address] Matilde Noguera Work Phone: [place] Work Phone: Start: 04-02-2023 End: 04-02-[address] Matilde Noguera Work Phone: [facility] Internal Medicine Work Phone: Start: 03-17-2023 End: 03-17-2023 Emergency department patient [facility]: Start: 03-12-2023 End: 03-12-[address] Matilde Noguera Work Phone: [facility] Internal Medicine Work Phone: Start: 03-01-2023 End: 03-10-2023 Evaluation and management of inpatient JAMES YADAV Facility:[facility] Start: 02-28-2023 Non-patient / Non-visit Dr. Moon Work Phone: [facility] In[facility] Physicians Work Phone: Start: 02-27-2023 Non-patient / Non-visit Dr. Moon Work Phone: [facility] Work Phone: Start: 02-27-2023 End: 02-28-2023 Evaluation and management of inpatient Dr. Matilde Noguera Work Phone: [place] Work Phone: Start: 02-25-2023 End: 02-25-2023 Emergency department patient visit Dr. Matilde Noguera Work Phone: [place] Work Phone: Start: 01-14-2023 End: 01-14-[address] Matilde Noguera Work Phone: [facility] Internal Medicine Work Phone: Start: 12-31-2022 End: 12-31-2022 Subsequent hospital visit by physician Elroy Thomas MD Work Phone: [facility] MAIN OR Comment on above: Peritoneal dialysis catheter in place (CMS/HCC) (HCC) (Primary Dx) Start: 12-19-2022 Admission to [facility] Breonna Melendez PA-C Work Phone: [facility] Start: 12-19-2022 ambulatory Breonna Isai on PA-C Work Phone: [facility] Start: 12-19-2022 Telephone encounter Elroy whitlock MD Work Phone: [facility] Comment on above: Release of Informati on Start: 12-16-2022 End: 12-16-2022 Office outpatient new 30 minutes Elroy Thomas MD Work Phone: [facility] Comment on above: ESRD (end stage judd l disease) (HCC) (Primary Dx) Start: 12-02-2022 Telephone encounter Elroy whitlock MD Work Phone: [facility] Start: 12-01-2022 End: 12-01-2022 ambulatory Facility:[facility] Start: 12-01-2022 End: 12-01-2022 Patient encounter procedure Ilene Vasques APRN.CNP Work Phone: [facility] Comment on above: Sore throat (Primary Dx); Thrush (oral) Start: 11-28-2022 End: 11-28-[address] Matilde Noguera Work Phone: [facility] Internal Medicine Work Phone: Start: 11-27-2022 End: 11-27-2022 Emergency department patient visit Dr. Matilde Noguera Work Phone: [place] Work Phone: Start: 11-09-2022 End: 11-09-2022 Emergency department patient visit Dr. Matilde Noguera Work Phone: [place] Start: 10-15-2022 Haim Mendez MD Work Phone: [facility] Internal Medicine Start: 09-10-2022 End: 09-10-[address] Matilde Noguera Work Phone: [place] Work Phone: Start: 09-10-2022 End: 09-10-[address] Matilde Noguera Work Phone: [place] Start: 08-29-2022 End: 08-29-[address] Matilde Noguera Work Phone: [facility] Internal Medicine Start: 06-25-2022 Non-patient / Non-visit Dr. Moon Work Phone: [facility] Start: 06-25-2022 End: 06-25-2022 Admission to same day surgery center Dr. Matilde Noguera Work Phone: [place] Start: 06-25-2022 End: 06-25-[address] Matilde Noguera Work Phone: [place] Work Phone: Start: 06-14-2022 End: 06-14-[address] Matilde Noguera Work Phone: [facility] Start: 06-03-2022 End: 06-03-[address] Matilde Noguera Work Phone: [facility] Internal Medicine Start: 01-19-2022 Non-patient / Non-visit RAHEL MATA Work Phone: [facility] Start: 01-18-2022 Non-patient / Non-visit RAHEL MATA [facility] Start: 01-18-2022 End: 01-19-2022 Evaluation and management of inpatient [place] Start: 01-18-2022 End: 01-19-2022 observation encounter RAHEL MATA Work Phone: [place] Work Phone: Start: 01-19-2021 End: 01-19-2021 Patient encounter status Fang Smallwood Work Phone: [facility] [address] [facility] Start: 01-19-2021 End: 01-19-2021 Subsequent hospital visit by physician Fang Smallwood Work Phone: [facility] [address] [facility] Comment on above: Encounter for other preprocedural examination; Chronic kidney disease, stage 4 (severe) ([facility]) Start: 04-25-2020 End: 04-25-2020 Emergency department patient visit Cornel Lozano Work Phone: [facility] Emergency Dept Comment on above: Urinary tract infect ion without hematuria, site unspecified (Primary Dx); Other fatigue Start: 04-06-2020 End: 04-07-2020 Subsequent hospital visit by physician Bravo Zarco Work Phone: [facility] Comment on above: Arrived Start: 03-14-2020 End: 03-14-2020 Subsequent hospital visit by physician Bravo Zarco Work Phone: [facility] Pre-Admit Testing Comment on above: Bacteria in urine Start: 12-13-2019 End: 12-15-2019 Emergency department patient visit Daniel Marshall Work Phone: [facility] CDU Comment on above: Chest pain, unspecif ied type (Primary Dx); Fatigue, unspecified type; Chronic kidney disease, unspecified CKD stage Start: 11-15-2019 End: 11-15-2019 Subsequent hospital visit by physician Fang Smallwood Work Phone: [facility] Laboratory Start: 11-15-2019 End: 11-15-2019 Subsequent hospital visit by physician Fang Smallwood Work Phone: [facility] Comment on above: 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) Start: 11-08-2019 End: 11-08-2019 Subsequent hospital visit by physician Fang Smallwood Work Phone: [facility] Comment on above: 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) Start: 11-01-2019 End: 11-01-2019 Subsequent hospital visit by physician Fang Smallwood Work Phone: [facility] Comment on above: 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) Start: 10-20-2019 End: 10-25-2019 Evaluation and management of inpatient Nimrit Marquita Ramos Work Phone: [facility] 7E Oncology Comment on above: Zach's-associated glomerulonephritis (HCC) (Primary Dx) Start: 05-24-2019 End: 05-24-2019 Subsequent hospital visit by physician Fang Smallwood Work Phone: [facility] [address] Ultrasound Comment on above: Arrived Start: 04-02-2019 End: 04-02-2019 Subsequent hospital visit by physician Fang Smallwood Work Phone: [facility] POP Comment on above: Other iron deficienc y anemia Start: 08-12-2018 End: 08-12-2018 Office outpatient visit 25 minutes Abby [facility] Start: 08-04-2018 Patient encounter procedure Abby [facility] Internal Med Start: 07-29-2018 End: 07-29-2018 Office outpatient new 60 minutes Abby [facility] Start: 12-30-2017 Patient encounter Danielle Graf [facility] Procedures Date Procedure Procedure Detail Performing Clinician Start: 11-30-2024 Glucose quantitative blood xcpt reagent strip Aziza Christianson MD Work Phone: Start: 11-30-2024 Comprehensive metabolic panel Cristi sofia MD Work Phone: Start: 11-29-2024 End: 11-29-2024 Assay of ferritin Vijay Lott MD Work Phone: Start: 11-29-2024 Glucose quantitative blood xcpt reagent strip Vijay Lott MD Work Phone: Start: 11-29-2024 Glucose quantitative blood xcpt reagent strip Vijay Lott MD Work Phone: Start: 11-29-2024 Comprehensive metabolic panel Cristi sofia MD Work Phone: Start: 11-29-2024 Glucose quantitative blood xcpt reagent strip Vijay Lott MD Work Phone: Start: 11-28-2024 Glucose quantitative blood xcpt reagent strip Vijay Lott MD Work Phone: Start: 11-28-2024 Glucose quantitative blood xcpt reagent strip Vijay Lott MD Work Phone: Start: 11-28-2024 Glucose quantitative blood xcpt reagent strip Flor Jensen MD Work Phone: Start: 11-28-2024 End: 11-28-2024 Comprehensive metabolic panel Cristi sofia MD Work Phone: Start: 11-27-2024 Glucose quantitative blood xcpt reagent strip Fawad Ruiz MD Work Phone: Start: 11-27-2024 Glucose quantitative blood xcpt reagent strip Fawad Ruiz MD Work Phone: Start: 11-27-2024 EEG CONTINUOUS MONITORING Erasmo Singh DO Work Phone: Start: 11-27-2024 Comprehensive metabolic panel Cristi sofia MD Work Phone: Start: 11-27-2024 Glucose quantitative blood xcpt reagent strip Fawad Ruiz MD Work Phone: Start: 11-26-2024 Mri brain brain stem w/o contrast material Erasmo Singh DO Work Phone: Start: 11-26-2024 EEG CONTINUOUS MONITORING Erasmo Singh DO Work Phone: Start: 11-26-2024 Blood gases any combination ph [id number] [id number] Cristi Dasilva MD Work Phone: Start: 11-26-2024 Glucose quantitative blood xcpt reagent strip Fawad Ruiz MD Work Phone: Start: 11-26-2024 Comprehensive metabolic panel Cristi sofia MD Work Phone: Start: 11-26-2024 Glucose quantitative blood xcpt reagent strip Fawad Ruiz MD Work Phone: Start: 11-25-2024 EEG CONTINUOUS MONITORING Erasmo Singh DO Work Phone: Start: 11-25-2024 Radiologic exam chest single view Erasmo Singh DO Work Phone: Start: 11-25-2024 TTE w or wo fol wcon,Doppler Daniel Marshall MD Work Phone: Start: 11-25-2024 End: 11-25-2024 Assay of ammonia Nuha Hebert MD Work Phone: Start: 11-25-2024 End: 11-25-2024 Bacteria identified in Blood by Culture Nuha Hebert MD Work Phone: Start: 11-25-2024 Hepatitis b surf antibody hbsab Aleyda Martinez MD Work Phone: Start: 11-25-2024 Iaad ia hepatitis b surface antigen Aleyda Martinez MD Work Phone: Start: 11-25-2024 Ct head/brain w/o contrast material Nuha Hebert MD Work Phone: Start: 11-25-2024 Radiologic exam abdomen 1 view Taylor Weinberg MD Work Phone: Start: 11-25-2024 Electroencephalogram Nuha Hebert MD Work Phone: Start: 11-25-2024 Comprehensive metabolic panel Daniel walker MD Work Phone: Start: 11-25-2024 Lipid panel Daniel Marshall MD Work Phone: Start: 11-25-2024 Ecg routine ecg w/least 12 lds trcg only w/o i&r Daniel Marshall MD Work Phone: Start: 07-20-2024 Assay of prostate specific antigen total Dr. Matilde Noguera MD Work Phone: Comment on above: This test was performed using the [employer] tPSA method. Measured values of a patient sample can vary depending on the testing procedure used. PSA values determined on patient samples by different testing procedures cannot be used interchangeably. If there is a change in PSA assays while monitoring therapy, sequential testing should be performed to confirm baseline values. Start: 04-19-2024 X-ray of chest, PA and lateral views Dr. Matilde Noguera MD Work Phone: Start: 04-19-2024 SARS-CoV-2, Influenza & RSV (PCR) Dr. Matilde Noguera MD Work Phone: Start: 02-27-[address] Matilde villa Work Phone: Start: 02-27-2023 Bacteria identified in Blood by Culture Dr. Matilde Noguera Work Phone: Start: 02-27-[address] Matilde Noguera Work Phone: Start: 02-27-2023 Investigation of transfusion reaction Dr. Matilde Noguera Work Phone: Start: 02-27-[address] Matilde Noguera Work Phone: Start: 02-27-2023 CT of head without contrast Dr. Matilde villa Work Phone: Start: 02-27-2023 Plain chest X-ray Dr. Matilde Noguera Work Phone: Start: 02-25-2023 Computed tomography of abdomen and pelvis with intravenous contrast Dr. Matilde Noguera Work Phone: Start: 12-31-2022 Glucose quantitative blood xcpt reagent strip Elroy Thomas MD Work Phone: Start: 12-31-2022 End: 12-31-2022 Laps insertion tunneled intraperitoneal catheter Elroy Thomas MD Work Phone: Start: 12-31-2022 Basic metabolic panel calcium total Breonna Melendez PA-C Work Phone: Start: 12-01-2022 STREP A MOLECULAR (POC) Ilene Vasques APRN.WHEEL SETTER Work Phone: Start: 11-28-[address] Matilde Noguera Work Phone: Start: 06-25-[address] Matilde Noguera Work Phone: Start: 01-18-2022 Plain chest X-ray Start: 01-19-2021 VL VESSEL MAP FOR PREOP DIALYSIS ACCESS BILATERAL UPPER EXTREMITIES Fang Lion Smallwood Work Phone: Start: 04-25-2020 Radiologic exam chest single view Yosephgeorge Randolph Work Phone: Start: 04-25-2020 Assay of lactate Yosephgeorge Randolph Work Phone: Start: 04-25-2020 Assay of troponin quantitative Yoseph Mj Jeffreyjhonymarquita Work Phone: Start: 04-25-2020 Basic metabolic panel calcium total Yoseph Randolph Work Phone: Start: 04-25-2020 Blood count complete auto&auto difrntl wbc Yoseph Randolph Work Phone: Start: 04-25-2020 Urnls dip stick/tablet rgnt auto w/o microscopy Yoseph D Jeffreyjhonymarquita Work Phone: Start: 04-25-2020 Ecg routine ecg w/least 12 lds w/i&r Yoseph D Agustín Work Phone: Start: 04-06-2020 OPERATIVE REPORT 3m Scanning Start: 04-06-2020 Gluc bld gluc mntr dev cleared fda spec home use Bravo Zarco Work Phone: Start: 04-06-2020 Basic metabolic panel calcium total Ana Peterson Work Phone: Start: 03-14-2020 Blood count hemoglobin Ana Peterson Work Phone: Start: 03-14-2020 Comprehensive metabolic panel Ana de santiago Work Phone: Start: 03-14-2020 Ecg routine ecg w/least 12 lds w/i&r Ana Peterson Work Phone: Start: 12-15-2019 Gluc bld gluc mntr dev cleared fda spec home use Daniel Marshall Work Phone: Start: 12-15-2019 Basic metabolic panel calcium total Geminocente Abdul Work Phone: Start: 12-15-2019 Gluc bld gluc mntr dev cleared fda spec home use Daniel Marshall Work Phone: Start: 12-15-2019 Blood count complete automated Beatriz Abdul Work Phone: Start: 12-15-2019 Basic metabolic panel calcium total Gemma LFlorence Abdul Work Phone: Start: 12-15-2019 Gluc bld gluc mntr dev cleared fda spec home use Daniel Marshall Work Phone: Start: 12-14-2019 Gluc bld gluc mntr dev cleared fda spec home use Daniel Marshall Work Phone: Start: 12-14-2019 Gluc bld gluc mntr dev cleared fda spec home use Daniel Marshall Work Phone: Start: 12-14-2019 ECHOCARDIOGRAM PHARMACOLOGICAL STRESS TEST Angelia [employer] Phone: Start: 12-14-2019 End: 12-14-2019 Gluc bld gluc mntr dev cleared fda spec home use Daniel Marshall Work Phone: Start: 12-14-2019 ADD ON LAB TEST [employer] Phone: Start: 12-14-2019 Assay of troponin quantitative [employer] Phone: Start: 12-14-2019 Urnls dip stick/tablet rgnt auto w/o microscopy [employer] Phone: Start: 12-13-2019 ADD ON LAB TEST [employer] Phone: Start: 12-13-2019 Gluc bld gluc mntr dev cleared fda spec home use Daniel Marshall Work Phone: Start: 12-13-2019 Assay of thyroid stimulating hormone tsh Angelia Hinson Work Phone: Start: 12-13-2019 Assay of troponin quantitative Angelia Hinson Work Phone: Start: 12-13-2019 ADD ON LAB TEST Ru Hampton Work Phone: Start: 12-13-2019 Radiologic exam chest single view Ru Hampton Work Phone: Start: 12-13-2019 Assay of lipase Ru Hampton Work Phone: Start: 12-13-2019 Assay of troponin quantitative Ru Hampton Work Phone: Start: 12-13-2019 Basic metabolic panel calcium total Ru Hampton Work Phone: Start: 12-13-2019 Blood count complete auto&auto difrntl wbc Ru Hampton Work Phone: Start: 12-13-2019 Hepatic function panel Ru Hampton Work Phone: Start: 12-13-2019 Natriuretic peptide Ru Hampton Work Phone: Start: 12-13-2019 Ecg routine ecg w/least 12 lds w/i&r Ru Hampton Work Phone: Start: 11-15-2019 Blood count complete auto&auto difrntl wbc Fang Seymour Gayomali Work Phone: Start: 11-15-2019 C-reactive protein high sensitivity Fang P Gayomali Work Phone: Start: 11-15-2019 Complement antigen each component Fang P Gayomali Work Phone: Start: 11-15-2019 Creatinine other source Fang Gossoma li Work Phone: Start: 11-15-2019 Protein total xcpt refractometry urine Fang Seymour Gayomali Work Phone: Start: 11-15-2019 Renal function panel Fang P Gayomali Work Phone: Start: 11-15-2019 Sedimentation rate rbc automated Fang Smallwood Work Phone: Start: 11-15-2019 Urnls dip stick/tablet rgnt auto w/o microscopy Fang Smallwood Work Phone: Start: 10-25-2019 Gluc bld gluc mntr dev cleared fda spec home use Nimrit K [employer] Work Phone: Start: 10-25-2019 Acute hepatitis panel Fang Smallwood Work Phone: Start: 10-25-2019 Blood count complete automated Cely Birmingham Work Phone: Start: 10-25-2019 Renal function panel Cely Birmingham Work Phone: Start: 10-24-2019 Gluc bld gluc mntr dev cleared fda spec home use Nimrit K [employer] Work Phone: Start: 10-24-2019 Gluc bld gluc mntr dev cleared fda spec home use Nimrit K [employer] Work Phone: Start: 10-24-2019 Gluc bld gluc mntr dev cleared fda spec home use Nimrit K [employer] Work Phone: Start: 10-24-2019 Blood count complete automated Cely Birmingham Work Phone: Start: 10-24-2019 Renal function panel Cely Birmingham Work Phone: Start: 10-24-2019 Gluc bld gluc mntr dev cleared fda spec home use Nimrit K [employer] Work Phone: Start: 10-23-2019 Gluc bld gluc mntr dev cleared fda spec home use Nimrit K [employer] Work Phone: Start: 10-23-2019 Gluc bld gluc mntr dev cleared fda spec home use Nimrit K [employer] Work Phone: Start: 10-23-2019 Gluc bld gluc mntr dev cleared fda spec home use Nimrit K [employer] Work Phone: Start: 10-23-2019 Gluc bld gluc mntr dev cleared fda spec home use Nimrit K [employer] Work Phone: Start: 10-23-2019 Blood count complete automated Cely Birmingham Work Phone: Start: 10-23-2019 Hepatitis b surf antibody hbsab Fang Gossomali Work Phone: Start: 10-23-2019 Hepatitis c antibody Fang Seymour Gayomali Work Phone: Start: 10-23-2019 Iaad ia hepatitis b surface antigen Fang Seymour Gayomali Work Phone: Start: 10-23-2019 Renal function panel Cely Birmingham Work Phone: Start: 10-23-2019 Creatinine other source Fang Anne li Work Phone: Start: 10-23-2019 Protein total xcpt refractometry urine Fang Seymour Gayomali Work Phone: Start: 10-22-2019 Gluc bld gluc mntr dev cleared fda spec home use Nimrit K [employer] Work Phone: Start: 10-22-2019 Gluc bld gluc mntr dev cleared fda spec home use Nimrit K [employer] Work Phone: Start: 10-22-2019 Gluc bld gluc mntr dev cleared fda spec home use Nimrit K [employer] Work Phone: Start: 10-22-2019 Gluc bld gluc mntr dev cleared fda spec home use Nimrit K [employer] Work Phone: Start: 10-22-2019 Assay of ferritin Nimrit K [employer] Work Phone: Start: 10-22-2019 Blood count complete automated Cely Birmingham Work Phone: Start: 10-22-2019 Iron binding capacity Nimrit K Lot[employer] Work Phone: Start: 10-22-2019 Renal function panel Cely Birmingham Work Phone: Start: 10-21-2019 Radiologic exam chest single view Camila Styles Work Phone: Start: 10-21-2019 Renal biopsy prq trocar/needle Fang Smallwood Work Phone: Start: 10-21-2019 Us retroperitoneal real time w/image complete Fang Smallwood Work Phone: Start: 10-21-2019 End: 10-21-2019 ADD ON LAB TEST Nimrit Marquita Ramos Work Phone: Start: 10-21-2019 Blood count complete automated Cely Birmingham Work Phone: Start: 10-21-2019 PROTIME/INR & PTT Cely Birmingham Work Phone: Start: 10-21-2019 RENAL + LIVER PROF Cely Birmingham Work Phone: Start: 05-24-2019 Us retroperitoneal real time w/image complete Fang Smallwood Work Phone: Start: 07-29-2018 End: 07-30-2018 Chest PA and Lateral Comments: See Note; NOTES: [facility] Imaging Services [address] [place] [id number] Chest PA and Lateral MR#: [id number] Acct: [id number] Name: FRANKLIN BURTON Rep #: [id number] : 1945 M 72 From: Saturnino Sky MD PCP: Care Physician, No Primary Status: REG CLI Study: Chest PA and Lateral Date of Exam: 07/29/18 Exam# [id number] Ordering Dr: Abby Arango DO STUDY: X-RAY CHEST REASON FOR EXAM: Male, 72 years old. Cough TECHNIQUE: Frontal and lateral views of the chest. COMPARISON: None. FINDINGS: The lungs are clear and expanded. There is no demonstrated pleural abnormality. Normal size heart. Normal mediastinum and lou. Normal visualized pulmonary arteries. Normal visualized aortic arch and descending thoracic aorta. Normal visualized thoracic spine. Normal visualized ribs, clavicles, and shoulders. Stable upper lumbar compression deformity. There is no demonstrated abnormality of the visualized soft tissue structures of the upper abdomen. RAD/Chest PA and Lateral IMPRESSION: No acute pulmonary findings. Electronically Signed: Saturnino Sky MD at 15:14 EDT Tel , Service support , CC: No Primary Care Physician; Abby Arango DO Mission Commander: Signed Abby Arango Work Phone: [facility] Comment on above: lt 1990 Knee sx [facility] Comment on above: lt 1990 SARS-CoV-2 & FLU Ant igen (Rapid) Total replacement of hip [facility] Comment on above: rt 2015 Total replacement of hip [facility] Comment on above: rt 2016 Plan of Treatment Date Care Activity Detail Author Start: 08-23-2027 Colon cancer screen colonoscopy Colon cancer screen colonoscopy [place], [place] Start: 08-23-2027 Screening for malignant neoplasm of colon Colon cancer screen colonoscopy [place], [place] Start: 11-30-2025 Creatinine measurement Creatinine Level [facility] Start: 11-30-2025 Potassium measurement Potassium Level [facility] Start: 11-25-2025 Echocardiography Echocardiogram [facility] Start: 10-08-2025 DTaP/Tdap/Td vaccine (2 - Td or Tdap) DTaP/Tdap/Td vaccine (2 - Td or Tdap) [facility] Work Phone: Start: 10-08-2025 DTaP/Tdap/Td vaccine (2 - Td) DTaP/Tdap/Td vaccine (2 - Td) [place] Start: 10-08-2025 DTaP/Tdap/Td Vaccines (2 - Td or Tdap) DTaP/Tdap/Td Vaccines (2 - Td or Tdap) [facility] Start: 01-17-2025 Influenza vaccination Influenza Vaccine (#1) [facility] Start: 11-13-2024 DIABETES SCREEN DIABETES SCREEN [facility] Start: 04-19-2024 [place] Start: 04-19-2024 [place] Start: 01-18-2024 COVID-19 Vaccine ( season) COVID-19 Vaccine ( season) [facility] Start: 01-01-2024 Creatinine measurement Creatinine Level [facility] Start: 01-01-2024 Potassium measurement Potassium Level [facility] Start: 12-31-2023 Hepatitis B Vaccines (8 of 8 - Risk Dialysis Recombivax 3-dose series) Hepatitis B Vaccines (8 of 8 - Risk Dialysis Recombivax 3-dose series) [facility] Start: 12-24-2023 Lipid panel Lipid screen [facility] [facility] Work Phone: Start: 09-09-2023 Procedure [place] Start: 08-04-2023 End: 08-03-2024 XR Hip - right Views XR hip 4+ views right Imaging Routine 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, initial encounter (HCC) (HCC) Expected: 08/04/2023, Expires: 08/03/2024 [facility] [employer] Work Phone: Comment on above: Expected: 08/04/2023, Expires: Start: 03-17-2023 [place] Start: 03-12-2023 Patient referral [place] Work Phone: Start: 03-04-2023 [place] Start: 03-03-2023 [place] Start: 03-02-2023 [place] Start: 03-01-2023 [place] Start: 02-28-2023 Referral to occupational therapist [place] Start: 02-28-2023 End: 02-28-2023 [place] Start: 02-28-2023 Hemodialysis care [place] Start: 02-28-2023 Referral to service [place] Start: 02-28-2023 Patient discharge [place] Start: 02-27-2023 Application of intermittent pneumatic compression device [place] Start: 02-27-2023 Anaerobic Culture Anaerobic Culture [place] Start: 02-27-2023 Bacteria identified in Blood by Culture Blood Culture [place] Start: 02-27-2023 Bacteria identified in Urine by Culture Urine Culture [place] Start: 02-27-2023 Bacterial culture Body Fluid Culture [place] Start: 02-27-2023 Urine culture Urine Culture [place] Start: 02-27-2023 [place] Start: 02-27-2023 Assessment of risk of venous thromboembolism [place] Start: 02-27-2023 Incentive spirometry [place] Start: 02-27-2023 Insertion of catheter into peripheral vein [place] Start: 02-27-2023 Measuring intake and output [place] Start: 02-27-2023 Providing care according to standard [place] Start: 02-27-2023 Provision of activity privileges [place] Start: 02-27-2023 Referral to home health administrator [facility] Start: 02-27-2023 Referral to service [place] Start: 02-27-2023 [place] Start: 02-27-2023 Following clinical pathway protocol [place] Start: 02-27-2023 Admission procedure [place] Start: 02-27-2023 Hospital admission, emergency, from emergency room, medical nature [place] Start: 02-27-2023 Cell count and Differential panel - Body fluid [place] Start: 02-27-2023 Microbial culture, body fluid [place] Start: 02-27-2023 End: 02-27-2023 Blood culture [place] Start: 02-27-2023 End: 02-27-2023 [place] Start: 02-25-2023 End: 02-25-2023 [place] Start: 02-25-2023 Emergency department visit moderate severity EMERGENCY DEPT VISIT LOW MDM [place] Start: 01-17-2023 COVID-19 Vaccine ( season) COVID-19 Vaccine ( season) [facility] Start: 01-17-2023 Influenza vaccination [facility] Start: 01-14-2023 Patient referral [place] Work Phone: Start: 01-08-2023 End: 01-08-2023 Patient encounter procedure 01/08/2023 11:30 AM EDT Office Visit [facility] [address] [place] [phone] [facility] Start: 12-31-2022 End: 12-31-2022 Admission to same day surgery center 12/31/2022 2:30 PM EDT - 12/31/2022 4:00 PM EDT Surgery [facility] MA[facility] OR [address] [place] [phone] Elroy Thomas MD [address] [place] [address] [place] [id number] LAPAROSCOPIC CONTINUOUS AMBULATORY PERITONEAL DIALYSIS CATHETER PLACEMENT WITH OMENTOPEXY, POSSIBLE OPEN [93376 (CPT )] [facility] Comment on above: LAPAROSCOPIC CONTINUOUS AMBULATORY PERIT KHANNA DIALYSIS CATHETER PLACEMENT WITH OMENTOPEXY, POSSIBLE OPEN [65415 (CPT )] Start: 12-31-2022 End: 12-31-2022 Laparoscopy w/omentopexy LAPAROSCOPY WITH OMENTOPEXY (OMENTAL TACKING PROCEDURE) End stage renal disease (HCC) 12/31/2022 2:30 PM EDT [facility] Operating Room Start: 12-31-2022 End: 12-31-2022 Laps insertion tunneled intraperitoneal catheter LAPAROSCOPY WITH INSERTION OF INTRAPERITONEAL CANNULA OR CATHETER PERMANENT End stage renal disease (HCC) 12/31/2022 2:30 PM EDT [facility] Operating Room Start: 12-31-2022 Subsequent hospital visit by physician 12/31/2022 2:30 PM EDT Hospital Encounter [facility] MA[facility] OR [address] [place] [phone] Elroy Thomas MD [address] [place] [address] [place] [id number] [facility] OR Start: 12-24-2022 End: 12-24-2022 Admission to establishment 12/24/2022 1:30 PM EDT Pre-Admission Testing [facility] Pre-Admit Testing [address] [place] [phone] [facility] Pre-Admit Testing Start: 12-16-2022 End: 12-16-2022 Patient encounter procedure 12/16/2022 1:45 PM EDT Office Visit [facility] [address] [place] [phone] Elroy Thomas MD [address] [place] [address] [facility] Start: 11-28-2022 Patient referral [place] Work Phone: Start: 06-25-2022 Colonoscopy w/biopsy single/multiple COLONOSCOPY AND BIOPSY [place] Start: 06-25-2022 Colsc flx w/rmvl of tumor polyp lesion snare tq COLONOSCOPY W/LESION REMOVAL [place] Start: 06-25-2022 Patient discharge [place] Start: 06-03-2022 Patient referral [place] Work Phone: Start: 05-19-2022 ADVANCE DIRECTIVE DISCUSSION ADVANCE DIRECTIVE DISCUSSION [facility] Start: 05-19-2022 DEPRESSION ASSESSMENT DEPRESSION ASSESSMENT [facility] Start: 05-09-2022 Medicare Annual Wellness (AWV) Medicare Annual Wellness (AWV) [facility] Start: 04-09-2022 Creatinine measurement Creatinine Level [facility] Start: 04-09-2022 Potassium measurement Potassium Level [facility] Start: 01-19-2022 Patient discharge [place] Work Phone: Start: 01-19-2022 Vitamin B12 measurement [facility] Work Phone: Start: 01-19-2022 Following clinical pathway protocol [place] Work Phone: Start: 01-19-2022 Patient referral to dietitian [place] Work Phone: Start: 01-18-2022 Assessment of risk of venous thromboembolism [place] Work Phone: Start: 01-18-2022 Insertion of catheter into peripheral vein [place] Work Phone: Start: 01-18-2022 Oxygen therapy [place] Work Phone: Start: 01-18-2022 Providing care according to standard [place] Work Phone: Start: 01-18-2022 Provision of activity privileges [place] Work Phone: Start: 01-18-2022 Referral to occupational therapist [place] Work Phone: Start: 01-18-2022 Referral to service [place] Work Phone: Start: 01-18-2022 [place] Work Phone: Start: 01-18-2022 Verification routine [place] Work Phone: Start: 01-18-2022 Admission procedure [place] Work Phone: Start: 01-18-2022 End: 01-18-2022 Blood culture [place] Work Phone: Start: 01-18-2022 [place] Work Phone: Start: 01-18-2022 [place] Work Phone: Start: 2021 RSV Immunization for Adults (1 - 1-dose 75+ series) RSV Immunization for Adults (1 - 1-dose 75+ series) [facility] Start: 06-19-2021 COVID-19 Vaccine (4 - Booster for Moderna series) COVID-19 Vaccine (4 - Booster for Moderna series) [facility] Start: 06-19-2021 COVID-19 VACCINE (4 - Moderna series) COVID-19 VACCINE (4 - Moderna series) [facility] Start: 05-16-2021 End: 05-16-2021 Patient encounter procedure 05/16/2021 Office Visit Urology Bravo Zarco MD [address] [facility] [address] [place] [address] [facility] [place] Start: 04-25-2021 Creatinine measurement [facility] Work [facility]: Start: 04-25-2021 Potassium monitoring Potassium monitoring [facility] Work Phone: Start: 04-09-2021 End: 04-09-2021 Patient encounter procedure 04/09/2021 Office Visit Internal Medicine Rahel Mendez MD [address] [place] [address] [phone] [facility] Internal Medicine Start: 04-06-2021 Creatinine measurement Creatinine monitoring [facility] [place] Start: 04-06-2021 Potassium monitoring Potassium monitoring [facility] [place] [place] Start: 01-17-2021 Influenza vaccination Flu vaccine (#1) [facility] Work Phone: Start: 12-14-2020 Creatinine measurement Creatinine monitoring [facility] [place] Start: 12-14-2020 Potassium monitoring Potassium monitoring [facility] [place] [place] Start: 11-29-2020 End: 11-29-2020 Office Visit 11/29/2020 Office Visit Urology Bravo Zarco MD [address] [place] [phone] [facility] [place] Start: 11-14-2020 Creatinine measurement Creatinine monitoring [facility] [place] Start: 11-14-2020 Potassium monitoring Potassium monitoring [facility] [place] [place] Start: 10-24-2020 Creatinine measurement Creatinine monitoring [facility] [place] Start: 10-24-2020 Potassium monitoring Potassium monitoring [facility] [place] [place] Start: 10-23-2020 Creatinine measurement Creatinine monitoring [facility] [place] Start: 10-23-2020 Potassium monitoring Potassium monitoring [facility] [place] [place] Start: 06-05-2020 End: 06-05-2020 Office Visit 06/05/2020 Office Visit Internal Medicine Rahel Mendez MD [address] [place] [address] [phone] [facility] Internal Medicine Start: 05-10-2020 End: 05-10-2020 Office Visit 05/10/2020 Office Visit UrologBravo Loiaza MD [address] [place] [phone] [facility] [place] Start: 04-19-2020 Creatinine monitoring Creatinine monitoring [facility] Work Phone: Start: 04-19-2020 Potassium monitoring Potassium monitoring [facility] Work Phone: Start: 04-19-2020 End: 04-19-2020 Office Visit 04/19/2020 Office Visit Endocrinology Danielle Aguirre MD [address] [place] [address] [phone] [facility] Start: 03-21-2020 End: 03-21-2020 Appointment 03/21/2020 Appointment General Surgery Bravo Zarco MD [address] [place] [phone] [facility] General Surgery Start: 01-27-2020 End: 01-27-2020 Office Visit 01/27/2020 Office Visit Internal Medicine Rahel Mendez MD [address] [place], [place] [phone] [facility] Internal Medicine Start: 01-18-2020 Influenza vaccination Flu vaccine (#1) [place] Start: 12-24-2019 Lipid panel Lipid [place] Start: 12-24-2019 Lipid screen Lipid [place] Start: 12-15-2019 Annual Wellness Visit (AWV) Annual Wellness Visit (AWV) [place] Start: 11-24-2019 End: 11-24-2019 Office Visit 11/24/2019 Office Visit Urology Bravo Zarco MD [address] [place] [phone] [facility] [place] Start: 11-15-2019 End: 11-15-2019 Appointment 11/15/2019 Appointment Infusion Therapy [facility] Start: 11-08-2019 End: 11-08-2019 Appointment 11/08/2019 Appointment Infusion Therapy [facility] Start: 09-08-2019 End: 09-08-2019 Office Visit 09/08/2019 Office Visit Urology Bravo Zarco MD [address] [place] [phone] [facility] [place] Start: 07-09-2019 Creatinine monitoring Creatinine monitoring [place] Start: 07-09-2019 Potassium monitoring Potassium monitoring [place] Start: 07-09-2019 End: 07-09-2019 Office Visit 07/09/2019 Office Visit Internal Medicine Rahel Mendez MD [address] [place] [address] [phone] [facility] Internal Medicine Start: 06-25-2019 A1C test (Diabetic or Prediabetic) A1C test (Diabetic or Prediabetic) [place] Start: 06-25-2019 HbA1c (Bld) [Mass fraction] A1C test (Diabetic or Prediabetic) [place] Start: 06-25-2019 Hemoglobin A1c measurement A1C test (Diabetic or Prediabetic) [facility] Work Phone: Start: 04-19-2019 End: 04-19-2019 Office Visit 04/19/2019 Office Visit Endocrinology Danielle Aguirre MD [address] [place], [place] [phone] [facility] Start: 01-17-2019 Influenza vaccination Flu vaccine (#1) [place] Start: 11-04-2018 Annual Wellness Visit (AWV) Annual Wellness Visit (AWV) [place] Start: 07-29-2018 Assay of folic acid serum Folate (51400) [facility] Work Phone: Start: 07-29-2018 Blood count complete automated CBC (AUTO) (94835) [facility] Work Phone: Start: 07-29-2018 Cobalamin (Vitamin B12) mass conc VITAMIN B-12 (CYANOCOBALAMIN) (41058) [facility] Work Phone: Start: 07-29-2018 Nuclear Ab IF titer (S) MADAN (ANTINUCLEAR ANTIBODY) (21797) [facility] Work Phone: Start: 07-29-2018 Rheumatoid factor quantitative RHEUMATOID FACTOR-QUANT (83790) [facility] Work Phone: Start: 07-29-2018 Thyrotropin Qn TSH (98251) [facility] Work Phone: Start: 07-29-2018 Sedimentation rate rbc non-automated SED RATE ERYTHROCYTE (30609) [facility] Work Phone: Start: 07-29-2018 CRP mass conc C-REACTIVE PROTEIN (74889) [facility] Work Phone: Start: 07-29-2018 Blood occult peroxidase actv qual feces 1 deter OCCULT BLOOD FECES SCREEN (60047) [facility] Work Phone: Start: 07-29-2018 Leukocyte assmt fecal qual/semiquantitative LEUKOCYTE COUNT, FECAL (51500) [facility] Work Phone: Start: 07-29-2018 Culture bacterial any source anaerobic iso&id C-DIFFICILE, STOOL (82619) [facility] Work Phone: Start: 07-29-2018 Cul bact stool aerobic isol salmonella&shigell LUZ CULTURE-STOOL (19199) [facility] Work Phone: Start: 07-29-2018 Hemoglobin A1c/Hemoglobin.total mass fraction (Bld) HGB A1C (38576) [facility] Work Phone: Start: 07-29-2018 25 hydroxy includes fractions if performed [facility] Work Phone: Start: 07-29-2018 Urine albumin quantitative MICROALBUMIN: CREATININE RATIO (84283) AND (94259) [facility] Work Phone: Start: 07-29-2018 Comprehensive metabolic panel METABOLIC PANEL, COMPREHENSIVE (92012) [facility] Work Phone: Start: 07-29-2018 Protein mass conc NMR Profile (89868) [facility] Work Phone: Start: 07-29-2018 Blood count complete auto&auto difrntl wbc [facility] Work Phone: Start: 12-25-2016 Screening for osteoporosis Bone Density Scan [facility] Start: 09-06-2011 PNEUMOCOCCAL: 65+ (1 - PCV) PNEUMOCOCCAL: 65+ (1 - PCV) [facility] Start: 2006 RSV Immunization aged 60 or older (1 - 1-dose 60+ series) RSV Immunization aged 60 or older (1 - 1-dose 60+ series) [facility] Start: 1996 Shingles Vaccine (1 of 2) Shingles Vaccine (1 of 2) [place] Start: 1996 SHINGRIX VACCINE (1 of 2) SHINGRIX VACCINE (1 of 2) [facility] Start: 1965 Hepatitis B vaccine (1 of 3 - Risk 3-dose series) Hepatitis B vaccine (1 of 3 - Risk 3-dose series) [place] Start: 1965 Urine microalbumin profile DTAP,TDAP,TD (1 - Tdap) [facility] Start: 1965 Zoster Vaccines (1 of 2) Zoster Vaccines (1 of 2) [facility] Start: 1964 Diabetes mellitus screening Diabetes Screening [facility] Start: 1964 HEPATITIS C SCREENING HEPATITIS C SCREENING [facility] Start: 1958 COVID-19 Vaccine (1) COVID-19 Vaccine (1) [facility] Work Phone: Start: 1958 Depression Screening Depression Screening [facility] Start: 1956 [object Object] Diabetic foot exam [place] Start: 1956 Diabetic foot examination Diabetic foot exam [place] Start: 1956 Diabetic retinal exam Diabetic retinal exam [place], [place] Start: 03-07-1947 COVID-19 Vaccine (#1) COVID-19 Vaccine (#1) [facility] Start: 1946 AAA screen AAA screen [place], [place] Start: 1946 Abdominal aortic aneurysm screening AAA screen [place] Start: 1946 Echocardiography Echocardiogram [facility] Start: 1946 Hepatitis C screen Hepatitis C screen [place] Start: 1946 Lipid panel Lipid Panel [facility] Start: 04-20-1947 Medicare Annual Wellness (AWV) Medicare Annual Wellness (AWV) [facility] Start: 1946 Screening for osteoporosis Bone Density Scan [facility] End: 10-23-2019 Anti-DNA Antibody, Double-Stranded Anti-DNA Antibody, Double-Stranded Lab Routine Tomorrow AM for 1 Occurrences starting 10/23/2019 until 10/23/2019 [facility] Tomorrow AM for 1 Occurrences starting 0 10/23/2019 until 10/23/2019 Anti-DNA Antibody, Double-Stranded Anti-DNA Antibody, Double-Stranded Lab Routine 10/23/2019 5:24 AM EDT [facility] End: 03-14-2020 Bacteria identified Cx Nom (U) Urine Culture Microbiology Routine Bacteria in urine 1 Occurrences starting 03/14/2020 until 03/14/2020 [facility] Comment on above: 1 Occurrences starting 03/14/2020 until 03/14/2020 Bacteria identified in Blood by Culture Blood Culture [place] Work Phone: Bacteria identified in Unspecified specimen by Anaerobe culture [place] Bacteria identified in Urine by Culture Urine Culture [place] Work Phone: Basic metabolic 2000 panel Basic Metabolic Panel Lab Routine Daily until discontinued starting 10/22/2019 [facility] Comment [facility] above: Daily until discontinued starting 2019 Blood culture [facility] Work Phone: CBC CBC Lab Routine Daily until discontinued starting 10/22/2019, 4 completed [facility] Comment [facility]: Daily until discontinued starting 2019, 4 completed End: 12-14-2019 CBC Auto Differential CBC Auto Differential Lab Routine One Time for 1 Occurrences starting 12/14/2019 until 12/14/2019 [facility] Comment on above: One Time for 1 Occurrences starting 11/17 until 12/14/2019 CBC Auto Differential CBC Auto D ifferential Lab Routine 12/14/2019 9:01 PM EDT [facility] Comment on above: As Needed until discontinued starting Electrophoresis Prot ein, Serum without Reflex to Immunofixation Electrophoresis Protein, Serum without Reflex to Immunofixation Lab Routine 10/23/2019 5:24 AM EDT [place] End: 10-23-2019 Glomerular Basement Membrane (GBM) Antibody IgG Glomerular Basement Membrane (GBM) Antibody IgG Lab Routine Tomorrow AM for 1 Occurrences starting 10/23/2019 until 10/23/2019 [place] Comment on above: Tomorrow AM for 1 Occurrences starting 0 10/23/2019 until 10/23/2019 Glomerular Basement Membrane (GBM) Antibody IgG Glomerular Basement Membrane (GBM) Antibody IgG Lab Routine 10/23/2019 5:24 AM EDT [place] HHN Treatment HHN Treatment Respiratory Care Routine Every 4hr As Needed until discontinued starting 10/20/2019 [place] Comment on above: Every 4hr As Needed until discontinued s tarting 10/20/2019 Initiate Oxygen Ther apy Protocol [place] Comment on above: Daily until discontinued starting 2019 Daily until disconti nued starting 10/21/2019 As Needed until disc ontinued starting 10/25/2019 Lipid 1996 panel - S gagandeep or Plasma [place] End: 10-23-2019 MYELOPEROXIDASE AB MYELOPEROXIDASE AB Lab Routine Tomorrow AM for 1 Occurrences starting 10/23/2019 until 10/23/2019 [place] Comment on above: Tomorrow AM for 1 Occurrences starting 0 10/23/2019 until 10/23/2019 MYELOPEROXIDASE AB MYELOPEROXIDA SE AB Lab Routine 10/23/2019 5:24 AM EDT [place] End: 12-14-2019 Nasal Cannula Oxygen Nasal Cannula Oxygen Respiratory Care Routine As Needed until discontinued starting 12/14/2019 [place] Comment on above: As Needed until discontinued starting End: 10-23-2019 Nuclear Ab IF (S) [Titer] MADAN Lab Routine Tomorrow AM for 1 Occurrences starting 10/23/2019 until 10/23/2019 [place] Comment on above: Tomorrow AM for 1 Occurrences starting 0 10/23/2019 until 10/23/2019 Nuclear Ab IF (S) [Titer] MADAN La b Routine 10/23/2019 5:24 AM EDT [place] Oxygen therapy Initiate Oxygen Therapy Protocol Respiratory Care Routine Daily until discontinued starting 12/13/2019 [place] Comment on above: Daily until discontinued starting 2019 Oxygen therapy [[facility] Data Set] Initiate Oxygen Therapy Protocol Respiratory Care Routine Daily until discontinued starting 04/06/2020 [place] Comment on above: Daily until discontinued starting 2019 Patient Education [facility] Work Phone: Patient referral [facility] Work Phone: POCT glucose [facility] [place] Comment on above: 4X Daily (AC & HS) until discontinued st arting 10/22/2019 As Needed until disc ontinued starting 10/22/2019 As Needed until disc ontinued starting 12/14/2019 End: 10-23-2019 Proteinase 3 Ab Proteinase 3 Ab Lab Routine Tomorrow AM for 1 Occurrences starting 10/23/2019 until 10/23/2019 [place] Comment on above: Tomorrow AM for 1 Occurrences starting 0 10/23/2019 until 10/23/2019 Proteinase 3 Ab [place] End: 11-15-2019 Proteinase 3 Ab Proteinase 3 Ab Lab Routine Once for 1 Occurrences starting 11/15/2019 until 11/15/2019 [place] Comment on above: Once for 1 Occurrences starting 11/15/19 20 until 11/15/2019 Renal Function Panel Renal Funct ion Panel Lab STAT Daily until discontinued starting 10/21/2019, 4 completed [place] Comment on above: Daily until discontinued starting 2019, 4 completed End: 04-25-2020 Respiratory Panel, Molecular, with COVID-19 (Restricted: peds pts or suitable admitted adults) [place] Comment on above: One Time for 1 Occurrences starting 12/2019 until 04/25/2020 Respiratory Panel, Molecular, with COVID-19 (Restricted: peds pts or suitable admitted adults) [place] End: 10-21-2019 Surgical Pathology Surgical Pathology Lab Routine Once for 1 Occurrences starting 10/21/2019 until 10/21/2019 [place] Comment on above: Once for 1 Occurrences starting 10/21/19 20 until 10/21/2019 Surgical Pathology Surgical Path ology Lab Routine 10/21/2019 11:00 AM EDT [facility] [place] [place] Urine culture Urine Culture [facility] Work Phone: End: 11-25-2024 Vitamin B1, whole blood [facility] Work Phone: Comment on above: Once (Lab) for 1 Occurrences starting until 11/25/2024 Vitamin B12 measurement [facility] Work Phone: VL Vessel Map for Pr eop Dialysis Access Bilateral Upper Extremities VL Vessel Map for Preop Dialysis Access Bilateral Upper Extremities Imaging Routine 01/19/2021 4:29 PM EDT [facility] Work Phone: End: 08-07-2023 XR Hip - right Views [facility] [employer] Comment on above: Once for 1 Occurrences starting 08/07/19 until 08/07/2023 [facility] Work Phone: [facility] Work Phone: [facility] Work Phone: [facility] Work Phone: [facility] Work Phone: BMI 36.0-36.9,ad ult : Eprescribed prescriptions (G8553) [facility] Work Phone: Immunizations Immunization Date Immunization Notes Care Provider [facility] 12-30-2022 Hepatitis B vaccine (recombinant), CpG adjuvanttoo Kerr MD Work Phone: [facility] 10-28-2022 Hepatitis B vaccine (recombinant), CpG adjuvanttoo Kerr MD Work Phone: [facility] 09-23-2022 Hepatitis B vaccine (recombinant), CpG clovis Kerr MD Work Phone: [facility] 08-26-2022 Hepatitis B vaccine (recombinant), CpG clovis Kerr MD Work Phone: [facility] 07-08-2022 Influenza, high dose seasonal Dr. Matilde Noguera MD Work Phone: [place] 07-08-2022 influenza, high dose seasonal, preservative-free Dr. Matilde Noguera Work Phone: [place] 07-08-2022 influenza, injectabl e, quadrivalent, preservative free Dr. Matilde Noguera Work Phone: [place] 07-08-2022 influenza virus vacc ine, unspecified formulation Elroy Thomas MD Work Phone: [facility] 03-04-2022 Influenza, high dose seasonal Dr. Matilde Noguera MD Work Phone: [place] 03-04-2022 influenza, high dose seasonal, preservative-free Dr. Matilde Noguera Work Phone: [place] 03-04-2022 influenza, injectabl e, quadrivalent, preservative free Dr. Matilde Noguera Work Phone: [place] 03-04-2022 Influenza, Seasonal, Quadrivalent, Adjuvanted Sky Kerr MD Work Phone: [facility] 11-22-2021 hepatitis B vaccine, adult dosage Dr. Matilde Noguera Work Phone: [place] 07-25-2021 hepatitis B vaccine, adult dosage Dr. Matilde Noguera Work Phone: [place] 06-11-2021 hepatitis B vaccine, adult dosage Dr. Matilde Noguera Work Phone: [place] 04-24-2021 Covid (Moderna) Dr. Matilde villa Work Phone: [place] 02-16-2021 influenza, injectabl e, quadrivalent, preservative free Dr. Matilde Noguera Work Phone: [place] 02-16-2021 influenza, seasonal, injectable RAHEL MATA Work Phone: [place] 07-20-2020 Covid (Moderna) RAHEL RUBI Work Phone: [place] 06-22-2020 Covid (Moderna) RAHEL RUBI Work Phone: [place] 04-17-2020 Influenza High-Dose Quadrivalent Dr. Matilde Noguera Work Phone: [place] 04-17-2020 Influenza, high dose seasonal Dr. Matilde Noguera MD Work Phone: [place] 04-17-2020 influenza, high dose seasonal, preservative-free Dr. Matilde Noguera Work Phone: [place] 03-23-2019 Influenza, high dose seasonal Dr. Matilde Noguera MD Work Phone: [place] 03-23-2019 influenza, high dose seasonal, preservative-free Nim[facility] 03-23-2019 Seasonal trivalent influenza vaccine, adjuvanted, preservative free Sky Kerr MD Work Phone: [facility] 04-06-2018 Influenza, high dose seasonal Dr. Matilde Noguera MD Work Phone: [place] 04-06-2018 influenza, high dose seasonal, [facility] 11-17-2017 pneumococcal conjuga te vaccine, 13 valent [facility] 03-31-2017 influenza virus vacc ine, unspecified formulation [facility] 03-31-2017 Influenza, high dose seasonal Dr. Matilde Noguera MD Work Phone: [place] 03-31-2017 influenza, high dose seasonal, preservative-free [facility] 10-09-2015 tetanus toxoid, redu alexei diphtheria toxoid, and acellular pertussis vaccine, adsorbed [facility] 07-12-2015 pneumococcal polysaccharide vaccine, 23 valent [facility] 08-27-2014 influenza virus vacc ine, whole virus [facility] [place] 08-27-2014 influenza, injectabl e, quadrivalent, preservative free Dr. Matilde Noguera Work Phone: [place] 08-27-2014 influenza, seasonal, injectable Dr. Matilde Noguera Work Phone: [place] Payers Date Payer Category Payer Self-pay [id number] 2020 Medicare supplementa l policy (as second payer) HUMANA MEDICARE SUPPLEMENT [id number] 2020 Private Health Insurance HUMANA HUMANA MEDICARE SUPPLEMENT [id number] 2020-Present [address] [place] [address] Commercial [id number] 2019 Medicare HUMANA MEDICARE HUMANA CHOICE-PPO MEDICARE [id number] 2019-Present [address] [place] [address] [id number] 2018 Medicare [id number] 2014 Medicare MEDICARE MEDICAR E PART A AND B xxxxxxxxxxx 2014-Present [phone] [place] [address] xxxxxxxxxxx [id number] 2014 Private Health Insurance HUMANA HUMANA MEDICARE SUPP xxxxxxxxx 2014-Present [address] [address] [place] [address] xxxxxxxxx [id number] 2013 Private Health Insurance [id number] 2011 Medicare 2011 Medicare [id number] 1945 Unknown [id number] 1945 Unknown [id number]. 2.651 Unknown Unknown [id number]. 2.462 Unknown [id number]. 2.462 Unknown [id number]. 2.462 Unknown [id number]. 2.462 Unknown [id number]. 2.462 Unknown [id number] [id number]. 2.462 Unknown [id number]. 2.462 Unknown [id number] [id number]. 2.462 Unknown [id number]. 2.462 Unknown [id number] [id number]. 2.462 Unknown [id number] [id number]. 2.462 Unknown [id number]. 2.462 Social History Date Type Detail Facility Living Situation: Lives with spouse. [facility] Work Phone: Start: 10-21-2019 End: 11-25-2024 No Caffeine Use [employer] [facility] Work Phone: Start: 10-21-2019 End: 11-25-2024 Tobacco smoking status NHIS Former smoker [facility] Start: 07-08-1962 End: 07-26-1981 History of tobacco use Current smoker [place] Start: 07-08-1962 End: 07-26-1981 History of tobacco use Cigarette Smoker [place] Start: 10-21-2019 End: 12-18-2022 Alcohol intake Current non-drinker of alcohol (finding) [place] Start: 07-08-2017 Alcohol Comment last drinking 2011 M [place], [place] Start: 1945 Sex Assigned At Not on file [place], [place] Exposure to SARS-CoV -2 (event) Unable to assess [place] Start: 12-13-2019 End: 11-25-2024 Tobacco use and exposure Never used [place] Start: 12-06-2022 End: 12-31-2022 Exposure to SARS-CoV-2 (event) Not sure [place] Start: 12-11-2020 History 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 Start: 12-01-2022 End: 11-25-2024 Tobacco use panel [facility] Start: 12-31-2022 End: 11-25-2024 Alcohol intake Lifetime non-drinker (finding) [facility] Start: 12-17-2021 End: 07-30-2024 Sex Male (finding) [place] How often do you nee d to have someone help you when you read instructions, pamphlets, or other written material from your doctor or pharmacy [SILS] Sometimes [facility] Has the [employer], [employer], or [employer] threatened to shut off services in your home in past 12Mo No [facility] In a typical week, h ow many times do you talk on the telephone with family, friends, or neighbors? Patient declined [facility] Are you now , , , , never or living with a partner? [facility] How often to you hav e a drink containing alcohol? Never [facility] (I/We) worried wheth er (my/our) food would run out before (I/we) got money to buy more. Never true [facility] Goals Date Patient Goal Desired Activity /State Functional Status Date Assessment Result Facility 02-28-2023 Functional status Activity Abili ty Unable to Assess;Bedrest [place] Work Phone: 02-27-2023 Functional status Patient Activity Bedres t [place] Work Phone: 01-19-2022 Functional status Ambulates [facility] Work Phone: [facility] Mental Status Date Assessment Result Facility 04-19-2024 Cognitive function Level Of Cons ciousness Awake;Alert;Appropriate;Follow s Commands [place] Work Phone: 02-28-2023 Cognitive function Voice/Name [facility] Work Phone: 02-27-2023 Cognitive function Level Of Cons ciousness Awake;Alert;Appropriate;Follow s Commands [place] Work Phone: 06-25-2022 Cognitive function Voice/Name [facility] Work Phone: 01-19-2022 Cognitive function Voice/Name [facility] Work Phone: Clinical Notes 04-07-2020 to 11-30-2024 Care Coordination - Unknown Case Management - 11/30/2024 1:42 PM EDTCare Plan - Glen De La O RN - 11/30/2024 1:21 PM EDTCare Coordination - Kelin Pulido RN - 11/30/2024 12:27 PM EDT Note Date & Type Note Facility 11-30-2024 Miscellaneous Notes Patient Choice Patient Name: FRANKLIN BURTON Date of : 1945 All Providers Sent Referral Name: [facility] Address: [address] [place] [address] Name: [facility] Phone: [phone] Address: [address] [place] [address] Name: [facility] Phone: [phone] Address: [address] [place] [address] Name: [employer] [facility] Phone: [phone] Address: [address] [place] [address] Name: [facility] Address: [address] [place] [address] Name: [facility] Address: [address] [place] [address] Name: [facility] Address: [address] [place] [address] Name: [employer] [facility] [employer] [facility] ([facility] known [facility]) Phone: [phone] Address: [address] [place] [address] Name: [facility] Address: [address] [place] [address] Name: [facility] Phone: [phone] Address: [address] [place] [address] Name: [facility] Address: [address] [place] [address] Name: [facility] Address: [address] [place] [address] Name: [facility] Address: [address] [place] [address] Name: [facility] Address: [address] [place] [address] Name: [facility] Phone: [phone] Address: [facility] [place] [address] Name: [facility] Phone: [phone] Address: [address] [place] [address] Problem: Knowledge Deficit Goal: Patient/family/caregiver demonstrates understanding of disease process, treatment plan, medications, and discharge instructions Outcome: Adequate for Discharge Problem: Neurological Deficit Goal: Neurological status is stable or improving Outcome: Adequate for Discharge Problem: Activity Intolerance/Impaired Mobility Goal: Mobility/activity is maintained at optimum level for patient Outcome: Adequate for Discharge Problem: Potential for Aspiration Goal: Non-ventilated patient's risk of aspiration is minimized Outcome: Adequate for Discharge Goal: Ventilated patient's risk of aspiration is minimized Outcome: Adequate for Discharge Problem: Nutrition Goal: Nutritional status is improving Outcome: Adequate for Discharge Care Management Progress Note Short Medical why still here: Pt admitted with stroke like symptoms. Stroke workup negative. Worsening Cognition and ADL decline suspected to be chronic in nature. Pt active with [facility] in [place]. [phone] Chair times MWF Tamia willl hold chair 30 days. Family has opted for Home care services at this time. Home Care following. Home Care referrals pending. Costumed Character Entertainer consulted to assist family with finding new PCP. New PCP appointment scheduled for January 13 2025 with [place] Alycia Jennings. Spoke with Pts daughter Leonarda today and she voiced understanding that Pt will have to follow up with current PCP at least once for Home Care set up, and once established with new PCP home car can switch over to the new PCP. Gave daughter information for [facility]" just in case they get home need additional resources Planned Discharge Disposition: Home Health Services Barriers/Today we still Wait: Home Care set up Length of Stay (Days): 5 GMLOS: 4.6 TCC to follow for discharge needs. Problem: Knowledge Deficit Goal: Patient/family/caregiver demonstrates understanding of disease process, treatment plan, medications, and discharge instructions Outcome: Progressing Problem: Neurological Deficit Goal: Neurological status is stable or improving Outcome: Progressing Problem: Activity Intolerance/Impaired Mobility Goal: Mobility/activity is maintained at optimum level for patient Outcome: Progressing Problem: Potential for Aspiration Goal: Non-ventilated patient's risk of aspiration is minimized Outcome: Progressing Goal: Ventilated patient's risk of aspiration is minimized Outcome: Progressing Problem: Knowledge Deficit Goal: Patient/family/caregiver demonstrates understanding of disease process, treatment plan, medications, and discharge instructions Outcome: Progressing Problem: Neurological Deficit Goal: Neurological status is stable or improving Outcome: Progressing Problem: Activity Intolerance/Impaired Mobility Goal: Mobility/activity is maintained at optimum level for patient Outcome: Progressing Problem: Potential for Aspiration Goal: Non-ventilated patient's risk of aspiration is minimized Outcome: Progressing Goal: Ventilated patient's risk of aspiration is minimized Outcome: Progressing Problem: Nutrition Goal: Nutritional status is improving Outcome: Progressing Care Management Progress Note Short Medical why still here: Follow up discussion with Pt's daughter Leonarda. Family has decided to try Home Care at this time. SNF will be back up plan. Home Care following. Pt has health ins and prescription drug cov. Pt has a PCP. Planned Discharge Disposition: Home Care pending Barriers/Today we still Wait: Clinical stability home care set up Length of Stay (Days): 4 GMLOS: 4.6 TCC to follow for discharge needs. Met with patient, Ada and daughter Leonarda discussed patient would like a new PCP did not have a PCP in mind. Scheduled with [facility] in [place]. Plan of Treatment Plan of Treatment - Upcoming Encounters Upcoming Encounters Date Type Department Care Team (Latest Contact Info) Description 01/13/2025 11:00 AM EDT Office Visit [facility] [place] [address] [place] [address] Alycia Jennings MD [address] [place], [place] [address] [facility]. JOHN unable to service as patient is out of service area. Educated patient and daughter Leonarda on Home Care and services available. Patient is agreeable to receiving home care services at this time. Patient was given choice of home care agencies available in the area and is agreeable to having referrals made with agencies that staff the patients service location. Referrals have been sent via [facility]. Liaison to discuss available agencies to accept case with patient upon receiving responses. Planning Intern following case for Discharge Needs. Care Management Progress Note Short Medical why still here: Pt admitted with stroke like symptoms. Stroke team consulted. Stroke workup negative. Worsening Cognition and ADL decline suspected to be chronic in nature. Met with pt's spouse Kaley and daughter Leonarda who were at bedside. Introduced self and role. Discussed possible SNF options Gave patient SNF list. Consulted hospital account liaison. Costumed Character Entertainer consulted to assist family with finding new PCP. Pt is from home with family. Planned Discharge Disposition: Long-Term Facility Barriers/Today we still Wait: Clinical stability Length of Stay (Days): 4 GMLOS: 4.6 TCC to follow for discharge needs. Problem: Knowledge Deficit Goal: Patient/family/caregiver demonstrates understanding of disease process, treatment plan, medications, and discharge instructions Outcome: Progressing Problem: Neurological Deficit Goal: Neurological status is stable or improving Outcome: Progressing Problem: Activity Intolerance/Impaired Mobility Goal: Mobility/activity is maintained at optimum level for patient Outcome: Progressing Problem: Potential for Aspiration Goal: Non-ventilated patient's risk of aspiration is minimized Outcome: Progressing Goal: Ventilated patient's risk of aspiration is minimized Outcome: Progressing Problem: Nutrition Goal: Nutritional status is improving Outcome: Progressing Problem: Knowledge Deficit Goal: Patient/family/caregiver demonstrates understanding of disease process, treatment plan, medications, and discharge instructions 11/28/2024 05 by Lucero Coelho RN Outcome: Progressing 11/28/2024 0546 by Lucero Coelho RN Outcome: Progressing Problem: Neurological Deficit Goal: Neurological status is stable or improving 11/28/2024 0555 by Lucero Coelho RN Outcome: Progressing 11/28/2024 0546 by Lucero Coelho RN Outcome: Progressing Problem: Activity Intolerance/Impaired Mobility Goal: Mobility/activity is maintained at optimum level for patient 11/28/2024 0555 by Lucero Coelho RN Outcome: Progressing 11/28/2024 0546 by Lucero Coelho RN Outcome: Progressing Problem: Potential for Aspiration Goal: Non-ventilated patient's risk of aspiration is minimized 11/28/2024 0555 by Lucero Coelho RN Outcome: Progressing 11/28/2024 0546 by Lucero Coelho RN Outcome: Progressing Goal: Ventilated patient's risk of aspiration is minimized 11/28/2024 0555 by Lucero Coelho RN Outcome: Progressing 11/28/2024 0546 by Lucero Coelho RN Outcome: Progressing Problem: Nutrition Goal: Nutritional status is improving 11/28/2024 0555 by Lucero Coelho RN Outcome: Progressing 11/28/2024 0546 by Lucero Coelho RN Outcome: Progressing Problem: Knowledge Deficit Goal: Patient/family/caregiver demonstrates understanding of disease process, treatment plan, medications, and discharge instructions Outcome: Progressing Problem: Neurological Deficit Goal: Neurological status is stable or improving Outcome: Progressing Problem: Activity Intolerance/Impaired Mobility Goal: Mobility/activity is maintained at optimum level for patient Outcome: Progressing Problem: Potential for Aspiration Goal: Non-ventilated patient's risk of aspiration is minimized Outcome: Progressing Goal: Ventilated patient's risk of aspiration is minimized Outcome: Progressing Problem: Nutrition Goal: Nutritional status is improving Outcome: Progressing Care Management Progress Note Transferred to T2 ICU for aggitation, precedex gtt, iHD baseline MWF - nephrology following. PT/OT pending. Planned Discharge Disposition: Other (Comment) (TBD) iHD - [facility] - MWF CM called [facility] [phone] regarding chair hold. Will hold chair for 30 days. CM updated EHR/MELBA with dialysis information. Barriers/Today we still Wait: Administering IV medications, Clinical stability, Buffer Operator recommendations (comment) Length of Stay (Days): 1 GMLOS: No GMLOS Documented Case management will continue to follow for discharge planning. Problem: Knowledge Deficit Goal: Patient/family/caregiver demonstrates understanding of disease process, treatment plan, medications, and discharge instructions 11/25/2024 1617 by Katheryn Wong RN Outcome: Progressing 11/25/2024 1009 by Katheryn Wong RN Outcome: Progressing Problem: Neurological Deficit Goal: Neurological status is stable or improving 11/25/2024 1617 by Katheryn Wong RN Outcome: Progressing 11/25/2024 1009 by Katheryn Wong RN Outcome: Progressing Problem: Activity Intolerance/Impaired Mobility Goal: Mobility/activity is maintained at optimum level for patient 11/25/2024 1617 by Katheryn Wong RN Outcome: Progressing 11/25/2024 1009 by Katheryn Wong RN Outcome: Progressing Problem: Potential for Aspiration Goal: Non-ventilated patient's risk of aspiration is minimized 11/25/2024 1617 by Katheryn Wong RN Outcome: Progressing 11/25/2024 1009 by Katheryn Wong RN Outcome: Progressing Care Management Progress Note Short Medical why still here: PT Direct admit from [facility], where the stroke neurologist determined that he was not having any LVO based on CTA and did not need TNK. Transferred to [facility] for further stroke work up related to Worsening facial droop. NIH 1, continued AMS. Pt with hx of CKD on HD. Cr-3.06, Hyponatremia 133, HTN 160's /100's. Nephro and stroke team consulted stroke workup ordered. PT agitated and uncooperative with care. MRI, TTE and EEG pending. TCC attempted to meet with patient or family. Pt was out of room . TCC will check back later and attempt to contact family via telephone. Pt has health ins. And prescription drug cov. Pt has a PCP. Planned Discharge Disposition: Home or Self Care Barriers/Today we still Wait: Clinical stability Length of Stay (Days): 0 GMLOS: No GMLOS Documented TCC to follow for discharge needs. INITIAL CONSULT NOTE. STROKE SERVICE Patient Name: Franklin Burton Patient : 1945 Acct: [id number] Date of Admission: 11/25/2024 Room[facility] A PCP: Matilde Noguera MD History of Present Ilness: 79 y.o. male with PMH of granulomatosis with polyangiitis, ESRD on hemodialysis, HTN, neuropathy, and pre-diabetes who presents with the chief Complaint of: altered mental status and confusion following a dialysis session. According to the patient's son, [id number], and , Mr. Burton returned from a routine dialysis session on 11/24 and laid down to rest. Soon after, he began yelling his 's name and was observed having his knees give out to collapse. He did not hit his head but was nauseous, severely confused, and his speech was not clear. At baseline, he speaks fluently with only occasional incomprehensibility of content. He is able to drive himself to and from dialysis appointments but uses a wheelchair and walker to ambulate. The patient was taken to [facility], where the stroke neurologist determined that he was not having any LVO based on CTA and did not need TNK. The team at [facility] felt this may have been related to fluid shift in relation to dialysis and transferred patient to [facility] for further imaging due to non-availability at [place]. Of note, Mr. [place] has presented with similar symptoms after dialysis at least two other previous times, and the family thinks his symptoms are getting worse each time. His family denies any known fever, chills, seizures, vision/hearing loss, gait abnormalities, or recent illness. They mention some back pain and loss of appetite that have presented over the past couple weeks. Past Medical History: Medical History[1] Past Surgical History: Surgical History[2] Home Medications: Prior to Admission medications Medication Sig Start Date End Date Taking? Authorizing Provider acetaminophen (Tylenol Extra Strength) 500 MG tablet every 6 hours. Historical Provider, azaTHIOprine (Imuran) 50 MG tablet Daily with lunch. 12/04/20 Historical Provider, finasteride (Proscar) 5 MG tablet Take 5 mg by mouth daily. Do not crush, chew, or split. Historical Provider, gabapentin (Neurontin) 100 MG capsule Take 2 capsules by mouth Nightly. 03/04/22 Historical Provider, metoprolol tartrate (Lopressor) 25 MG tablet every 12 hours. Historical Provider, mirtazapine (Remeron) 15 MG tablet Take 15 mg by mouth Nightly. Historical Provider, omeprazole (PriLOSEC) [address] capsule Take 1 capsule (40 mg) by mouth daily. 10/15/22 Rahle Mendez MD oxyCODONE-acetaminophen (Percocet) 5-325 MG tablet Take 1 tablet by mouth every 8 hours as needed for severe pain (7-10) or moderate pain (4-6). Historical Provider, pregabalin (Lyrica) 25 MG capsule Take 25 mg by mouth 2 times daily. Historical Provider, tamsulosin (Flomax) 0.4 MG 24 hr capsule Every 24 hours. Historical Provider, Current Hospital Medications: Current Medications[3] Continuous Infusions: Continuous Meds[4] Allergies: Aspirin and Other Social History: TOBACCO: reports that he quit smoking about 43 years ago. His smoking use included cigarettes. He started smoking about 62 years ago. He has a 19 pack-year smoking history. He has never used smokeless tobacco. ETOH: reports no history of alcohol use. RECREATIONAL DRUG USE: Social History Substance and Sexual Activity Drug Use Never Family History: Family History[5] ROS; :Unable to obtain review of systems due to patient's mental status and lack of cooperation. ROS according to patient's family. Review of Systems Constitutional: Positive for appetite change and fatigue. Negative for chills and fever. HENT: Negative for hearing loss. Eyes: Negative for visual disturbance. Neurological: Negative for tremors, seizures and syncope. Patient presents with altered mental status, confusion, and fatigue. Psychiatric/Behavioral: Positive for agitation (Patient reportedly has restless leg syndrome at baseline. Patient is restless in hospital bed but not aggressive.) and confusion. Physical Examination: Patient Vitals for the past 8 hrs: BP Temp Temp src Pulse Resp SpO2 11/25/24 1023 (!) 168/101 36.3 C (97.4 F) Temporal 97 20 94 % 11/25/24 0606 154/87 36.5 C (97.7 F) Temporal 93 18 95 % No intake/output data recorded. General Physical Examination: General: Orthodromic HEENT:Normocephalic, atraumaticl CV: S1+S2, RRR, no MRG. Pulm:Normal work of breathing Abdomen:Non-distended Back: No tenderness to palpation, no fluctuant skin Skin: Intact without ulcers, breakdowns or discoloration Extremities: normal with no edema or cyanosis Neurological Examination: Higher Functions: Mental Status Exam: Level of Alertness:Somnolent but arrousable Orientation: Waxing and waning orientation to person, place, and time. Memory: Limited by level of consciousness Fund of Knowledge: Limited by level ofconsciousness Language: Soft, slow speech. Level of comprehension and speech dependent on fluctuating mentation. Dysarthria not present Cranial Nerves: -II Visual acuity: normal -II Visual mccabe: normal -III Pupils equal, round, reactive to light -III-IV- Extraocular Movements: intact -Nystagmus not present -Saccades and pursuits normal - V Unable to be assessed -VII Facial strength: intact -VIII Hearing: intact -IX-X- Gag reflex Not assessed -X Palate: Not assessed -XI Shoulder shrug: Not assessed -XII Tongue movement: normal Motor Examination: Tone after evaluation of 4 limbs, the following findings applied: Normal . all limbs -Bulk: normal -Muscle Stretchafter evaluation of all limbs, and axial musculature the following findings applied: Drift: absent -Reflexes: after evaluation of 4 limbs, the following findings applied ; normal all limbs -Plantar responce: Flexor bilaterally Sensory patient unable to assist with exam due toaphasia,level of consciousness, cognition or poor participation Coordination: Arms Normal finger to nose Tremors asterixis Gait abnormal, patient unable to walk due to acute circumstances / bedrest / safety concerns NIHSS: 1 Results Labs: Last 24hrs Recent Results (from the past 24 hours) ECG 12 lead if not done in the ED Collection Time: 11/25/24 6:48 AM Result Value Ref Range Heart Rate 96 bpm QRSD Interval 83 ms QT Interval 347 ms QTC Interval 438 ms P Cosby 68 degrees QRS Cosby 35 degrees T Wave Cosby 38 degrees WA Interval 185 ms Hemoglobin A1c Collection Time: 11/25/24 7:02 AM Result Value Ref Range HEMOGLOBIN A1C 5.8 (H) <5.7 %HbA1C ESTIMATED AVERAGE GLUCOSE 120 mg/dL Lipid panel - fasting Collection Time: 11/25/24 7:02 AM Result Value Ref Range TRIGLYCERIDE 104 <150 mg/dL CHOLESTEROL 146 <200 mg/dL HDL CHOLESTEROL 39 (L) >=60 mg/dL CHOL/HDL 4 VERY LOW DENSITY LIPOPROTEIN, CALCULATED 21 <=30 mg/dL NON-HDL CHOLESTEROL, CALCULATED 107 <130 LOW DENSITY LIPOPROTEIN 86 0 - <100 mg/dL CBC Collection Time: 11/25/24 7:02 AM Result Value Ref Range Auto WBC 6.3 3.6 - 10.7 10*3/uL RBC 3.67 (L) 4.40 - 5.90 10*6/uL Hemoglobin 11.3 (L) 13.0 - 18.0 g/dL Hematocrit 35.2 (L) 40.0 - 52.0 % MCV 95.9 77.0 - 99.0 fL MCH 30.8 26.0 - 34.0 pg MCHC 32.1 30.5 - 36.0 % RDW 13.2 11.5 - 15.0 % Platelets 114 (L) 140 - 440 10*3/uL MPV 9.7 9.0 - 12.7 fL Serial Troponin, High Sensitivity Collection Time: 11/25/24 7:02 AM Result Value Ref Range Troponin HS Serial Baseline 5 <=35 ng/L Comprehensive metabolic panel Collection Time: 11/25/24 7:02 AM Result Value Ref Range SODIUM 133 (L) 136 - 145 mmol/L POTASSIUM 4.6 3.5 - 5.1 mmol/L CHLORIDE 101 98 - 107 mmol/L CARBON DIOXIDE 27 23 - 31 mmol/L ANION GAP 5 3 - 13 mmol/L UREA NITROGEN 13 9 - 23 mg/dL CREATININE 3.06 (H) 0.72 - 1.25 mg/dL GLUCOSE 103 82 - 115 mg/dL CALCIUM 9.2 8.8 - 10.0 mg/dL AST (SGOT) 22 <34 U/L ALT 13 <40 U/L ALKALINE PHOSPHATASE 81 40 - 150 U/L ALBUMIN 3.7 3.4 - 4.8 g/dL BILIRUBIN, TOTAL 0.6 <1.2 mg/dL TOTAL PROTEIN 6.8 6.4 - 8.3 g/dL eGFR 20.1 (L) >60.0 mL/min/1.73m*2 Since admission: No results for input(s): "CKTOTAL", "TROPONINI" in the last 72 hours. Recent Labs 11/25/24 0702 ALKPHOS 81 ALT 13 AST 22 BILITOT 0.6 @[facility]) ABGs:)No results for input(s): "PH", "PO2", "PCO2", "HCO3", "O2SAT" in the last 72 hours. No lab exists for component: "BE" Cultures: Blood culture #1: No lab exists for component: "BC" Blood culture #2: No lab exists for component: "BLOODCULT2" Antiepileptic levels: No results for input(s): "PHENYTOIN", "PHENOBARB", "VALPROATE" in the last 72 hours. No lab exists for component: "CARBTOT", "LAMOTRIG", "KEPPRA" Coagulation: No results for input(s): "INR" in the last 72 hours. CSF: No results for input(s): "CULTURE", "PROTEIN" in the last 72 hours. No lab exists for component: "CHARCSF", "CELL COUNT", "GRAM STAIN" Stroke Specific: Lipids: Recent Labs 11/25/24 0702 CHOL 146 TRIG 104 HDL 39* HgA1c: No lab exists for component: "LABA1C" Radiology Personal review: 11/25/24 CT Head w/o IV Contrast IMPRESSION: No acute intracranial abnormality. Diffuse cortical volume loss and chronic small vessel ischemic changes. CTA performed at [facility], results to be uploaded to patient's chart by [facility] CT. ASSESSMENT / PLAN / SUGGESTIONS : Mr. Franklin Burton is a 79-year-old male presenting for 1-day history of acute altered mental status and confusion following a routine hemodialysis session. Patient has had similar episodes at least twice before, each time in temporal relation to a hemodialysis session. He first presented to [facility], where initial CTA imaging ruled out LVO or need for TNK. He was then sent to [facility] to obtain further imaging and workup due to non-availability of equipment at original hospital. Patient has fluctuating levels of alertness and mentation during stay. He does not have any fever, chills, or leukocytosis, but his family does endorse back pain manifesting over the course of the past two weeks. He has no recent history of trauma, substance use, or observed seizures. Neurologically, he does not have focal symptoms that are immediately indicative of worrisome vascular etiologies such as TIA or stroke, but MRI imaging has been ordered to rule it out. He has no myelopathic signs and does not appear to have any signs of potential abscess. At this time, differential diagnoses for potential etiology of AMS are broad and many avenues must be considered in workup. Possible leading differential diagnoses include dialysis disequilibrium syndrome (given temporal relation to repetitive symptoms, but this may usually present more chronically), metabolic/SIADH (given Na of 133, though baseline may be consistent), PRES due to Imuran use, infectious (unlikely given lack of symptoms and SIRS criteria), and uremic encephalopathy (given observed asterixis in setting of ESRD on dialysis). #Altered Mental Status #Confusion #ESRD on dialysis #Sx onset after dialysis #Imuran use - Awaiting results of MRI, EEG, and TTE - CT Head performed 11/25/24, no acute intracranial abnormality observed - UA and urine cultures ordered along with blood cultures - Vitamin panel ordered - Ammonia ordered - Fluid restriction - Avoid medications that can worsen altered mental status (benzodiazepines, antihistamines, sedatives) - Precautionary delirium protocol (lights on during day, protect sleep at night, Seroquel if needed at night for sleep, regular monitoring, keeping patient alert throughout daylight) Patient seen and discussed with Dr. Hebert [1] Past Medical History: Diagnosis Date Allergic rhinitis BPH (benign prostatic hyperplasia) BPH (benign prostatic hyperplasia) CHF (congestive heart failure) ([facility]) Chronic back pain Chronic kidney disease Chronic systolic heart failure (HCC) 06/05/2020 Compression fracture spring 2014 T12 Diabetes mellitus without complication (CMS/HCC) (HCC) 07/24/2016 no diabetes GERD (gastroesophageal reflux disease) [place] (hard of hearing) 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 Hypertension Indwelling Osorio catheter present Obesity ROYAL (obstructive sleep apnea) Osteoarthritis Restless legs syndrome Status post right hip replacement 03/19/2016 Urge incontinence 07/24/2016 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[facility]) [2] Past Surgical History: Procedure Laterality Date CATARACT EXTRACTION Bilateral COLONOSCOPY COLONOSCOPY 01/02/2016 Repeat in 3 years, colon polyps, diverticulosis and internal hemorrhoid COLONOSCOPY 08/24/2017 by Joana Moreno, repeat in 5 years, diverticulosis, internal hemorrhoid EYE SURGERY HIP ARTHROPLASTY Right 02/05/2016 right hip 9/ 19/16 HX AV FISTULA CREATION Left 02/20/2021 JOINT REPLACEMENT KNEE ARTHROSCOPY Left 1988 ORTHOPEDIC SURGERY Left 1989 knee- left knee mensicus arthroscopic surgery PROSTATE BIOPSY 01/11/2014 trus bx- negative RENAL BIOPSY 12/2013 TRANSURETHRAL RESECTION OF PROSTATE 04/06/2020 Button TURPFlorence Zarco UPPER GASTROINTESTINAL ENDOSCOPY 01/02/2016 gasttitis, duodentits, GERD with esophagitis UPPER GASTROINTESTINAL ENDOSCOPY 08/22/[address] Bernard, no BE , gastritis, duodenitis and esophagus WISDOM TOOTH EXTRACTION [3] Current Facility-Administered Medications: acetaminophen (Tylenol) tablet 650 mg, 650 mg, Oral, q6h PRN OR acetaminophen (Tylenol) suppository 650 mg, 650 mg, Rectal, q6h PRN, Daniel Marshall MD atorvastatin (Lipitor) tablet 40 mg, 40 mg, Oral, Nightly, Daniel Marshall MD azaTHIOprine (Imuran) tablet 50 mg, 50 mg, Oral, Lunch, Daniel Marshall MD bisacodyl (Dulcolax) suppository 10 mg, 10 mg, Rectal, Daily PRN, Daniel Marshall MD clopidogrel (Plavix) tablet 75 mg, 75 mg, Oral, Daily, Daniel Marshall MD gabapentin (Neurontin) capsule 200 mg, 200 mg, Oral, Nightly, Daniel Marshall MD heparin injection 5,000 Units, 5,000 Units, SubCUTAneous, 2 times per day, Daniel Marshall MD labetalol (Normodyne,Trandate) injection 10 mg, 10 mg, IntraVENous, q10 min PRN, Daniel Marshall MD metoprolol tartrate (Lopressor) tablet 25 mg, 25 mg, Oral, BID, Daniel Marshall MD ondansetron ODT (Zofran-ODT) disintegrating tablet 4 mg, 4 mg, Oral, q8h PRN OR ondansetron (Zofran) injection 4 mg, 4 mg, IntraVENous, q6h PRN, Daniel Marshall MD polyethylene glycol (PEG) 3350 (Miralax) packet 17 g, 17 g, Oral, Daily PRN, Daniel Marshall MD pregabalin (Lyrica) capsule 25 mg, 25 mg, Oral, BID, Daniel Marshall MD QUEtiapine (SEROquel) tablet 12.5 mg, 12.5 mg, Oral, Once, Taylor Weinberg MD sodium chloride 0.9 % infusion, 5-250 mL/hr, IntraVENous, PRN, Daniel Marshall MD sodium chloride 0.9 % infusion, 50 mL/hr, IntraVENous, Continuous, Daniel Marshall MD, Last Rate: 50 mL/hr at 11/25/24701, 50 mL/hr at 11/25/24701 sodium chloride 0.9% (NS) flush 5-40 mL, 5-40 mL, IntraVENous, q12h, Daniel Marshall MD sodium chloride 0.9% (NS) flush 5-40 mL, 5-40 mL, IntraVENous, PRN, Daniel Marshall MD tamsulosin (Flomax) 24 hr capsule 0.4 mg, 0.4 mg, Oral, Daily, Daniel Marshall MD [4] sodium chloride, 50 mL/hr, Last Rate: 50 mL/hr (11/25/24701) [5] Family History Problem Relation Name Age of Onset Bleeding Prob Other Diabetes Maternal Grandmother Colon cancer Sister 70.00 Colon cancer Brother Tucker 70.00 Prostate cancer Father Lung cancer Father Heart failure Mother Heart disease Mother Cosigned by Nuha Hebert MD at 11/25/2024 1:50 PM EDT Associated attestation - Nuha Hebert MD - 11/25/2024 1:50 PM EDT Images from the original note were not included. I have personally performed a face to face diagnostic evaluation on this patient . I have reviewed and agree with the care plan as documented above by my KUSH/resident with exceptions as listed below. 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 The history was obtained by talking to the patient's son and who are at bedside. This is the fourth episode of this happening. Per the son, every time he has this episode, it is worse than the last 1. Between these episodes, he is usually at his baseline. There is also some concern of very slow onset of some memory issues for some time now. Per the son, this always happens after his dialysis and he usually gets better within 48 hours. Yesterday, the patient was in his usual state of health, no fevers, recent sicknesses and drove himself to the dialysis. Followed by this, he came home and laid down to rest. Soon after, started yelling his 's name and he was noticed that he was significantly confused and his speech was not clear. [facility] he had a CT scan of the head and CT angiogram of the head and neck. He was offered tenecteplase but the family refused given similar episodes in the past. He was then transferred to [facility]. At [facility] on arrival, blood pressure 154/87, blood work showed sodium 133, creatinine 3.06, LDL 86, A1c 5.8. On exam, the patient is stuporous, does open commands and answer me questions, able to tell me his name, states that he is in the hospital, unable to tell me the current year. He is able to follow simple commands. On cranial examination, pupils are equal reactive, extraocular muscle movements are intact, no facial droop, no facial numbness, tongue is midline and palate elevation is symmetric. He has 5/5 strength in bilateral upper extremities, on exam he does have some asterixis but no [id number] dystaxia or dysmetria. No numbness on light touch in his arms or leg. Able to lift both legs antigravity with 4/5 strength bilaterally. Reflexes are 1+ in the uppers, unable to elicit in the lowers. Denies any spine tenderness. Negative Kernig's and Brezinski. 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 There is no clear seizure-like activity but postdialysis disequilibrium syndrome can also cause seizures and we will get a urgent EEG. I have repeated a stat CT head which did not show any significant abnormality. With the possibility it is PRES given he is on Imuran versus toxic metabolic etiologies versus infectious etiology which is less likely but if his symptoms do not start to improve, he might need a spinal tap. Addendum: discussed with primary: will need med rec, I do not recommend both Gabapentin and Lyrica I personally spent [] 25 [x]79 minutes in time for this patient. During that time I performed a face to face diagnostic evaluation of this patient reviewing labs, imaging studies and the electronic medical record; as well as counseling/coordinating care and provided discussion regarding diagnostic impressions and the plan of care with the consulting team Nuha Hebert MD Problem: Knowledge Deficit Goal: Patient/family/caregiver demonstrates understanding of disease process, treatment plan, medications, and discharge instructions Outcome: Progressing Problem: Neurological Deficit Goal: Neurological status is stable or improving Outcome: Progressing Problem: Activity Intolerance/Impaired Mobility Goal: Mobility/activity is maintained at optimum level for patient Outcome: Progressing Problem: Potential for Aspiration Goal: Non-ventilated patient's risk of aspiration is minimized Outcome: Progressing documented in this encounter [facility] 11-30-2024 Note Formatting of this n ote might be different from the original. Patient Choice Patient Name: FRANKLIN BURTON Date of : 1945 All Providers Sent Referral Name: [facility] ([facility] Address: [address] [place] [address] [address] [place] [address] Name: [facility] Phone: [phone] Address: [address] [address] [place] [address] Name: [facility] Phone: [phone] Address: [address] [place] [address] Name: [facility] Phone: [phone] Address: [address] [place] [address] Name: [facility] Address: [address] [place] [address] Name: [facility] Address: [address] [place] [address] Name: [facility] Address: [address] [place] [address] Name: [facility] (formerly known as [facility]) Phone: [phone] Address: [address] [place] [address] Name: [facility] Address: [address] [place] [address] Name: [facility] Phone: [phone] Address: [address] [place] [address] Name: [facility] Address: [address] [place] [address] Name: [facility] Address: [address] [place] [address] Name: [facility] Address: [address] [place] [address] Name: [facility] Address: [address] [place] [address] Name: [facility] Phone: [phone] Address: [address] [place] [address] Name: [facility] Phone: [phone] Address: [address] [facility] [place] [facility] [address] [place] [address] [facility] 11-30-2024 Note Formatting of this n ote might be different from the original. Patient Choice Patient Name: FRANKLIN BURTON Date of : 1945 All Providers Sent Referral Name: [facility] ([facility]) Address: [address] [place] [address] Name: [facility] Phone: [phone] Address: [address] [facility] [address] [place] [address] Name: [facility] Phone: [phone] Address: [address] [place] [address] Name: [facility] Phone: [phone] Address: [place] [address] Name: [facility] Address: [address] [place] [address] Name: [facility] Address: [address] [place] [address] Name: [facility] Address: [address] [place] [address] Name: [facility] (formerly known [facility]) Phone: [phone] Address: [address] [place] [address] Name: [facility] Address: [address] [place] [address] Name: [facility] Phone: [phone] Address: [address] [place] [address] Name: [facility] Address: [address] [place] [address] Name: [facility] Address: [address] [place] [address] Name: [facility] Address: [address] [place] [address] Name: [facility] Address: [address] [place] [address] Name: [facility] Phone: [phone] Address: [address] [place] [address] Name: [facility] Phone: [phone] Address: [address] [place] [address] [facility] 11-30-2024 Plan of care note Problem: Knowledge Deficit Goal: Patient/family/caregiver demonstrates understanding of disease process, treatment plan, medications, and discharge instructions Outcome: Adequate for Discharge Problem: Neurological Deficit Goal: Neurological status is stable or improving Outcome: Adequate for Discharge Problem: Activity Intolerance/Impaired Mobility Goal: Mobility/activity is maintained at optimum level for patient Outcome: Adequate for Discharge Problem: Potential for Aspiration Goal: Non-ventilated patient's risk of aspiration is minimized Outcome: Adequate for Discharge Goal: Ventilated patient's risk of aspiration is minimized Outcome: Adequate for Discharge Problem: Nutrition Goal: Nutritional status is improving Outcome: Adequate for Discharge [facility] 11-30-2024 Note Formatting of this n ote might be different from the original. Care Management Progress Note Short Medical why still here: Pt admitted with stroke like symptoms. Stroke workup negative. Worsening Cognition and ADL decline suspected to be chronic in nature. Pt [facility] [place]. [phone] Chair times MW [facility] willl hold chair 30 days. Family has opted for Home care services at this time. Home Care following. Home Care referrals pending. Cost[employer] Character Entertainer consulted to assist family with finding new PCP. New PCP appointment scheduled for January 13 2025 with Mr. Alycia Jennings. Spoke with Pts farhana Brower today and she voiced understanding that Pt will have to follow up with current PCP at least once for Home Care set up, and once established with new PCP home car can switch over to the new PCP. Gave daughter information for [facility]" just in case they get home need additional resources Planned Discharge Disposition: Home Health Services Barriers/Today we still Wait: Home Care set up Length of Stay (Days): 5 GMLOS: 4.6 TCC to follow for discharge needs. [facility] 11-30-2024 Note Formatting of this n ote might be different from the original. Care Management Progress Note Short Medical why still here: Pt admitted with stroke like symptoms. Stroke workup negative. Worsening Cognition and ADL decline suspected to be chronic in nature. Pt active with [facility] in [place]. [phone] Chair times [facility] will[facility] hold chair 30 days. Family has opted for Home care services at this time. Home Care following. Home Care referrals pending. Cost[employer]tainer consulted to assist family with finding new PCP. New PCP appointment scheduled for January 13 2025 with Mr. Alycia Jennings. Spoke with Pts farhana Brower today and she voiced understanding that Pt will have to follow up with current PCP at least once for Home Care set up, and once established with new PCP home car can switch over to the new PCP. Gave daughter information for "[facility]" just in case they get home need additional resources Planned Discharge Disposition: Home Health Services Barriers/Today we still Wait: Home Care set up Length of Stay (Days): 5 GMLOS: 4.6 TCC to follow for discharge needs. [facility] 11-30-2024 Note Care Management Prog ress Note Short Medical why still here: Pt admitted with stroke like symptoms. Stroke workup negative. Worsening Cognition and ADL decline suspected to be chronic in nature. Pt active with [facility] in [place]. [phone] Chair times MWF [facility] will hold chair 30 days. Family has opted for Home care services at this time. Home Care following. Home Care referrals pending. Costumed Character Entertainer consulted to assist family with finding new PCP. New PCP appointment scheduled for January 13 2025 with Mr. Alycia Jennings. Spoke with Pts daughter Leonarda today and she voiced understanding that Pt will have to follow up with current PCP at least once for Home Care set up, and once established with new PCP home car can switch over to the new PCP. Gave daughter information for "[facility]" just in case they get home need additional resources Planned Discharge Disposition: Home Health Services Barriers/Today we still Wait: Home Care set up Length of Stay (Days): 5 GMLOS: 4.6 TCC to follow for discharge needs. [facility] 11-30-2024 Note Nephrology Progress Note Patient: Franklin Burton Room number: W3-332/W3-332 A Date of Admit: 11/25/2024 LOS: 5 days Referring physician: Aziza Christianson MD Outpatient Armored Car Guard: [facility] Assessment / Plan Franklin Burton is a 79 y.o. male with a past medical history of ESRD on HD MWF at [facility], GPA, DM type 2, HTN, HFrEF, BPH, GERD, ROYAL, OA, obesity, RLS, neuropathy, who was brought in from OSH due to AMS. Pt had HD and went home, then woke up agitated, feeling nauseated and confused, underwent neurologic work up. Renal plan: 1-ESRD on HD MWF -will plan for next HD tomorrow -he is on gabapentin, lyrica discontinued 2-Anemia: -Hgb 12, at goal -hold JENNIFER 3-QAMAR: -last Ca was 9.5 and phosphorus 2.1 post HD -not on binders 4-BP/volume status: -last BP was 138/100 -he is on metoprolol 25 mg bid -TTE EF 50%. pHTN present. IVC not visualized. -will investigate EDW -he had 2 L off yesterday 5-AMS: -unlikely to be dds -geriatrics consulted -etiology suspected to be related to patient taking gabapentin and lyrica at random doses, sending on gabapentin 300 mg hs 6-ID: -blood cx NGTD -not on Abs currently -he is on azathioprine for GPA, establishing with Dr. Palma ([facility]) He is planned for dc today. Thank you for allowing us to participate in the care of this patient. Please call with any questions. Aleyda Martinez MD [facility] ([place]) Office phone: [phone] Office fax: [phone] 11/30/2024 Subjective Patient was seen and examined this am. Family at bedside. He was complaining doing ok, complained of back and ankle pain. No nausea, vomiting or SOB. Mentation seems at baseline. Medications Scheduled Meds:Scheduled Meds[1] Continuous Infusions:Continuous Meds[2] Review of Systems As above Vital Signs Vitals: 11/29/24 2249 11/30/24 0159 11/30/24 0524 11/30/24 1008 BP: 150/90 145/85 (!) 174/79 138/100 BP Location: Right arm Right arm Patient Position: Sitting Pulse: 107 84 91 118 Resp: 20 16 20 16 Temp: 36.4 ?C (97.6 ?F) 36.2 ?C (97.2 ?F) 36.7 ?C (98.1 ?F) 36.6 ?C (97.8 ?F) TempSrc: Temporal Temporal Temporal Temporal SpO2: 92% 95% 94% 98% Weight: Height: Wt Readings from Last 3 Encounters: 11/25/24 103 kg (228 lb) 08/07/23 103 kg (228 lb) 01/09/23 96.6 kg (213 lb) Admit Wt: Weight: 103 kg (228 lb) Estimated body mass index is 34.68 kg/m? as calculated from the following: Height as of this encounter: 1.727 m (5' 7.99"). Weight as of this encounter: 103 kg (228 lb). Physical Exam General: awake and alert, lying comfortable in bed in NAD, on RA. HEENT: Sclera clear, EOMI, MMM, Nose/ears/hearing grossly normal Neck: Supple, trachea midline, no mass Chest: Normal excusion Heart: RRR, no rub/heave Lungs: Clear bilaterally, unlabored Abd: Soft, (+) BS, non-tender, non distended Ext: No edema Neuro: No tremor/myoclonus Skin: warm and dry, no rash LUE AVF with thrill and bruit present LABS Labs reviewed. Recent Labs 11/28/24 02011/29/248 11/30/24 0545 WBC 4.6 4.2 5.2 HGB 10.5* 10.7* 12.0* HCT 31.9* 32.1* 36.0* MCV 93.5 92.8 92.5 PLT 118* 123* 152 Recent Labs 11/28/24 02011/29/248 11/30/24 0545 ALT 16 25 28 AST 31 35* 33 ALKPHOS 82 91 105 BILITOT 0.8 0.9 0.9 Diagnostic Studies MRI brain 11/27: 1. No acute intracranial findings. 2. Probable chronic ischemic and atrophic changes. CXR 11/25: No acute cardiopulmonary process. The patient may proceed with MRI in regards to this exam. CT head 11/25: 1. No acute intracranial abnormality. 2. Diffuse cortical volume loss and chronic small vessel ischemic changes. [1] acetaminophen, 500 mg, Oral, q8h atorvastatin, 40 mg, Oral, Nightly azaTHIOprine, 50 mg, Oral, Lunch capsaicin, , Topical, BID clopidogrel, 75 mg, Oral, Daily gabapentin, 300 mg, Oral, Nightly heparin, 5,000 Units, SubCUTAneous, 2 times per day melatonin, 5 mg, Oral, Nightly metoprolol tartrate, 25 mg, Oral, BID QUEtiapine, 25 mg, Oral, Nightly senna-docusate sodium, 2 tablet, Oral, Daily sodium chloride 0.9%, 5-40 mL, IntraVENous, q12h tamsulosin, 0.4 mg, Oral, Daily [2] [facility] 11-30-2024 History of Present illness Narrative Images from the original note were not included. Nephrology Progress Note Patient: Franklin Burton Room number: W3-332/W3-332 A Date of Admit: 11/25/2024 LOS: 5 days Referring physician: Aziza Christianson MD Outpatient Armored Car Guard: Tamia Marquez Assessment / Plan Franklin Burton is a 79 y.o. male with a past medical history of ESRD on HD MWF at [facility], GPA, DM type 2, HTN, HFrEF, BPH, GERD, ROYAL, OA, obesity, RLS, neuropathy, who was brought in from OSH due to AMS. Pt had HD and went home, then woke up agitated, feeling nauseated and confused, underwent neurologic work up. Renal plan: 1-ESRD on HD MWF -will plan for next HD tomorrow -he is on gabapentin, lyrica discontinued 2-Anemia: -Hgb 12, at goal -hold JENNIFER 3-QAMAR: -last Ca was 9.5 and phosphorus 2.1 post HD -not on binders 4-BP/volume status: -last BP was 138/100 -he is on metoprolol 25 mg bid -TTE EF 50%. pHTN present. IVC not visualized. -will investigate EDW -he had 2 L off yesterday 5-AMS: -unlikely to be dds -geriatrics consulted -etiology suspected to be related to patient taking gabapentin and lyrica at random doses, sending on gabapentin 300 mg hs 6-ID: -blood cx NGTD -not on Abs currently -he is on azathioprine for GPA, establishing with Dr. Palma ([facility]) He is planned for dc today. Thank you for allowing us to participate in the care of this patient. Please call with any questions. Aleyda Martinez MD [facility] ([place]) Office phone: [phone] Office fax: [phone] 11/30/2024 Subjective Patient was seen and examined this am. Family at bedside. He was complaining doing ok, complained of back and ankle pain. No nausea, vomiting or SOB. Mentation seems at baseline. Medications Scheduled Meds:Scheduled Meds[1] Continuous Infusions:Continuous Meds[2] Review of Systems As above Vital Signs Vitals: 11/29/24 2249 11/30/24 0159 11/30/24 0524 11/30/24 1008 BP: 150/90 145/85 (!) 174/79 138/100 BP Location: Right arm Right arm Patient Position: Sitting Pulse: 107 84 91 118 Resp: 20 16 20 16 Temp: 36.4 C (97.6 F) 36.2 C (97.2 F) 36.7 C (98.1 F) 36.6 C (97.8 F) TempSrc: Temporal Temporal Temporal Temporal SpO2: 92% 95% 94% 98% Weight: Height: Wt Readings from Last 3 Encounters: 11/25/24 103 kg (228 lb) 08/07/23 103 kg (228 lb) 01/09/23 96.6 kg (213 lb) Admit Wt: Weight: 103 kg (228 lb) Estimated body mass index is 34.68 kg/m as calculated from the following: Height as of this encounter: 1.727 m (5' 7.99"). Weight as of this encounter: 103 kg (228 lb). Physical Exam General: awake and alert, lying comfortable in bed in NAD, on RA. HEENT: Sclera clear, EOMI, MMM, Nose/ears/hearing grossly normal Neck: Supple, trachea midline, no mass Chest: Normal excusion Heart: RRR, no rub/heave Lungs: Clear bilaterally, unlabored Abd: Soft, (+) BS, non-tender, non distended Ext: No edema Neuro: No tremor/myoclonus Skin: warm and dry, no rash LUE AVF with thrill and bruit present LABS Labs reviewed. Recent Labs 11/28/24 02011/29/24 0348 11/30/24 0545 WBC 4.6 4.2 5.2 HGB 10.5* 10.7* 12.0* HCT 31.9* 32.1* 36.0* MCV 93.5 92.8 92.5 PLT 118* 123* 152 Recent Labs 11/28/24 0201 11/29/24 0348 11/30/24 0545 ALT 16 25 28 AST 31 35* 33 ALKPHOS 82 91 105 BILITOT 0.8 0.9 0.9 Diagnostic Studies MRI brain 11/27: 1. No acute intracranial findings. 2. Probable chronic ischemic and atrophic changes. CXR 11/25: No acute cardiopulmonary process. The patient may proceed with MRI in regards to this exam. CT head 11/25: 1. No acute intracranial abnormality. 2. Diffuse cortical volume loss and chronic small vessel ischemic changes. [1] acetaminophen, 500 mg, Oral, q8h atorvastatin, 40 mg, Oral, Nightly azaTHIOprine, 50 mg, Oral, Lunch capsaicin, , Topical, BID clopidogrel, 75 mg, Oral, Daily gabapentin, 300 mg, Oral, Nightly heparin, 5,000 Units, SubCUTAneous, 2 times per day melatonin, 5 mg, Oral, Nightly metoprolol tartrate, 25 mg, Oral, BID QUEtiapine, 25 mg, Oral, Nightly senna-docusate sodium, 2 tablet, Oral, Daily sodium chloride 0.9%, 5-40 mL, IntraVENous, q12h tamsulosin, 0.4 mg, Oral, Daily [2] Images from the original note were not included. OCCUPATIONAL THERAPY [facility] Initial Evaluation Name/MRN: Franklin Burton ([id number]) Evaluation Date: 11/30/2024 Date of : 1945 Admission Date: 11/25/2024 5:45 AM Age: 79 y.o. Room/Bed: W3-332/W3-332 A Discharge Recommendation: IP Rehab Other: Continue to assess Assessment IMPRESSION: Pt presented with Stroke-like symptoms and AMS upon admission. Pt is a poor historian, A&O x 1 (person). Per and other family member, pt requires assist for ADL's at times, but can ambulate w/Mod I short distances w/FWW, but mainly uses w/c. Pt is currently presenting below baseline and is limited by diminished cognition as well as diminished strength, endurance, balance, and safety. Pt is currently Mod A for bed mobility, Min A for STS from EOB w/FWW, and Min A-CGA for functional ambulation to/from door w/FWW. Pt requires more assist with turns and is unsteady. Pt is currently Max-Min A for ADL's. Recommending IPR at discharge as pt is unsafe to return home, pt is motivated, and can tolerate daily therapy. If family decline IPR, then recommend 24 hour assist and home OT. Pt will continue to benefit from acute OT services while admitted to increase functional independence. Admitting Diagnosis: Stroke-like symptoms Performance Deficits /Impairments: Decreased Functional Mobility, Decreased ADL status, Decreased Strength, Decreased Safety Awareness, Decreased Endurance, Decreased Balance, Decreased High Level IADLs, Decreased Cognition, and Decreased Posture Prognosis: Fair Decision Making: Medium Complexity Subjective Pt supine in bed upon OT arrival w/ and other family member present; pt agreeable to OT eval. Rn cleared for therapy. Pt sitting in recliner at end of session with call light within reach, chair alarm on, family present, and RN notified. Pain: Pt sates pain, but does not say where or provide rating. Past Medical History: Medical History[1] Past Surgical History: Surgical History[2] Admission Diagnosis: Patient Active Problem List Diagnosis Date Noted Stroke-like symptom 11/25/2024 Stroke-like symptoms 11/25/2024 Allergic rhinitis 08/07/2023 Chronic insomnia 08/07/2023 Chronic maxillary sinusitis 08/07/2023 Nasal obstruction 08/07/2023 Nasal septal perforation 08/07/2023 Sensorineural hearing loss (SNHL), bilateral 08/07/2023 Swelling of upper extremity 08/07/2023 Tinnitus, bilateral 08/07/2023 Tremor 08/07/2023 Malnutrition of mild degree (HCC) 03/09/2023 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 (HCC) 03/01/2023 Peritoneal dialysis catheter in situ (CMS/HCC) (HCC) 03/01/2023 Periumbilical abdominal pain 03/01/2023 Motion sickness 12/24/2022 Arthralgia 12/02/2022 Bronchitis 12/02/2022 Chest pain 12/02/2022 Chronic back pain 12/02/2022 Diarrhea 12/02/2022 Epistaxis 12/02/2022 Fever 12/02/2022 Finding of above normal blood pressure 12/02/2022 Hearing loss 12/02/2022 Heartburn 12/02/2022 Intermittent claudication (HCC) 12/02/2022 Obesity with body mass index 30 or greater 12/02/2022 Prediabetes 12/02/2022 Restless legs syndrome 12/02/2022 Viral upper respiratory tract infection 12/02/2022 Chronic neuropathic pain 11/28/2022 Pain, unspecified 10/25/2022 Ankle pain 08/29/2022 Other mechanical complication of surgically created arteriovenous fistula, initial encounter ([facility]) 08/21/2022 Coagulation defect, unspecified ([facility]) 08/20/2022 Abnormal echocardiography 08/05/2022 Allergy, unspecified, initial encounter 08/01/2022 Anaphylactic shock, unspecified, initial encounter 08/01/2022 ESRD (end stage renal disease) ([facility]) 08/01/2022 Anemia in chronic kidney disease 07/30/2022 Dialysis patient ([facility]) 07/30/2022 Noninfective gastroenteritis and colitis, unspecified 07/30/2022 Secondary hyperparathyroidism of renal origin ([facility]) 07/30/2022 Chronic systolic heart failure ([facility]) 06/03/2022 Neuropathy 03/26/2022 Heart failure ([facility]) 03/26/2022 Disease due to severe acute respiratory syndrome coronavirus 2 (SARS-CoV-2) 01/22/2022 Disorder of brain 01/22/2022 Fatigue 01/22/2022 Hyperkalemia 01/22/2022 Stage 3 chronic kidney disease ([facility]) 01/22/2022 Arteriovenous fistula ([facility]) ([facility]) 07/25/2021 Stage 5 chronic kidney disease due to hypertension ([facility]) 02/20/2021 BPH with urinary obstruction 04/06/2020 Zach's granulomatosis with renal involvement ([facility]) 10/27/2019 Gastroesophageal reflux disease 10/21/2019 Hypertension 10/21/2019 Morbidly obese ([facility]) 10/21/2019 Iron deficiency anemia, unspecified 10/21/2019 Obstructive sleep apnea syndrome 10/20/2019 Avascular necrosis of bone of hip ([facility]) ([facility]) 07/09/2019 Abdominal hernia 07/09/2019 Polyneuropathy due to other toxic agents ([facility]) 11/17/2017 Diverticulosis of large intestine without diverticulitis 08/22/2017 BPH with obstruction/lower urinary tract symptoms 07/24/2016 Adenomatous colon polyp 01/27/2016 Vitamin D deficiency 11/29/2015 Osteoporosis 10/09/2015 Granulomatosis with polyangiitis ([facility]) 12/30/2014 Compression fracture of L1 lumbar vertebra ([facility]) 12/30/2014 Medical Precautions: No active isolations Proper PPE donned/doffed in accordance with facility standards. Fall Risk: Faustin Fall Risk Score: 45 (High Risk) Precautions/Restrictions: Fall Precautions Bed/chair alarm Family/Caregiver Present: spouse and other family member Overall Cognitive Status: Exceptions - Arousal/alertness: appropriate responses to stimuli - Following commands: follows one step commands with increased time and follows one step commands with repetition - Safety judgement: decreased awareness of need for safety - Problem solving: assistance required to identify errors made and assistance required to correct errors made - Sequencing: requires cues for some Overall Orientation Status: Oriented to Person Social/Functional History Patient admitted from home. Lives With: Spouse Type of Home: mobile home Home Layout: Single Level Home Home Access: Stairs to Enter with Rails (# of stairs: 4) Bathroom Shower/Tub: Toilet: Standard Home Equipment: front wheeled walker, rollator, cane, and wheelchair - manual Homemaking Responsibilities: Needs Assist Receives Help From: Significant other Active Stock Clerk: Yes Prior Level of Function Prior Level of ADL Function: Required Assist Prior Level of Mobility: Independent; Device: Front wheeled walker and w/c Prior Level of Transfers: Independent Objective ADLs ADL's not directly perform during session due to pt politely declining, Pt is currently Max-Min A for ADL's given current skill set and limitations. Upper Extremity Assessment AROM: WFL PROM: Not assessed this session Strength: WFL Grossly 4/5 Bed Mobility Supine to sit: Mod Assist, To lift trunk OOB HOB Elevated Use of bed rail(s) Transfers/Mobility Sit to stand: Min Assist Stand to sit: Min Assist, poor eccentric control Sitting balance: SBA, Contact Guard Standing balance: Contact Guard, Min Assist Functional mobility: Contact Guard, Min Assist Pt is currently Min A for STS from EOB w/FWW, and Min A-CGA for functional ambulation to/from door w/FWW. Pt requires more assist with turns and is unsteady. Pt requires VC's to stay within FWW and to reach back to lower self onto stable surface. Device(s) used: Front wheeled walker Coordination: Ataxic and during functional screen Tone: Normal Tone Sensation: pt denies numbness or tingling Vision: No Visual Deficits Tremors: No Heart Failure on Admission Dyspnea: No Heart failure diagnosis: Yes AM-PAC AM-PAC Inpatient Daily Activity Raw Score: 16 ADL Inpatient CMS G-Code Modifier: CK Plan Pt would benefit from skilled acute OT services to address Strengthening, Balance Training, Self-Care/ADL Training, Functional Mobility Training, Endurance Training, Safety Education and Training, Equipment Evaluation/Education, and Cognitive Reorientation Frequency: 4x/week for 4 weeks Barriers: Impaired balance, Lower extremity weakness, Upper extremity weakness, Decreased endurance, Limited safety awareness, and Confusion Safety/Education Safety Safety Devices in place: All fall risk precautions in place, call light within reach, left in chair, chair alarm in place, gait belt, patient at risk for falls, and nurse notified Restraints: No Education Education Given To: patient and spouse Education Provided: OT Role, Plan of Care, ADL Adaptive Strategies, Transfer Training, Orientation, Equipment, Fall Prevention Education, Discharge Recommendations, and Benefits of Increasing Activity Education Method: Verbal Barriers to Learning: Cognition Education Outcome: Continued Education Needed Goals Patient Stated Goal: "To get up". Encounter Problems Encounter Problems (Active) Balance Patient will maintain dynamic standing balance for 5-10 minutes with supervision in order to demonstrate decreased risk of falling. Start: 11/30/24 Expected End: 12/30/24 Dressings Lower Extremities Patient will dress lower body with SBA Start: 11/30/24 Expected End: 12/30/24 Grooming Patient will complete daily grooming tasks with supervision Start: 11/30/24 Expected End: 12/30/24 Mobility Patient will demonstrate functional ambulation with SBA Start: 11/30/24 Expected End: 12/30/24 Toileting Patient will complete toileting tasks at standard toilet with SBA. Start: 11/30/24 Expected End: 12/30/24 Transfers Patient will complete functional transfer with least restrictive device with SBA in order to prepare for ambulation. Start: 11/30/24 Expected End: 12/30/24 Patient will perform bed mobility with CGA in order to improve independence and prepare for out of bed mobility. Start: 11/30/24 Expected End: 12/30/24 Therapy Time Individual Co-Treatment Co-Evaluation Time In 1120 Time Out 1135 Minutes 15 Erasmo Kenney OT Patient's Occupational Therapy Plan of Care supervision is transferred to a [facility] Occupational Therapist. Goals and/or treatment plan was established in collaboration with patient/family/other representatives. [1] Past Medical History: Diagnosis Date Allergic rhinitis BPH (benign prostatic hyperplasia) BPH (benign prostatic hyperplasia) CHF (congestive heart failure) (HCC) Chronic back pain Chronic kidney disease Chronic systolic heart failure (HCC) 06/05/2020 Compression fracture spring 2014 T12 Diabetes mellitus without complication (HCC) 07/24/2016 no diabetes GERD (gastroesophageal reflux disease) [place] (hard of hearing) 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 Hypertension Indwelling Osorio catheter present Obesity ROYAL (obstructive sleep apnea) Osteoarthritis Restless legs syndrome Status post right hip replacement 03/19/2016 Urge incontinence 07/24/2016 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[facility]) [2] Past Surgical History: Procedure Laterality Date CATARACT EXTRACTION Bilateral COLONOSCOPY COLONOSCOPY 01/02/2016 Repeat in 3 years, colon polyps, diverticulosis and internal hemorrhoid COLONOSCOPY 08/24/2017 by Joana Moreno, repeat in 5 years, diverticulosis, internal hemorrhoid EYE SURGERY HIP ARTHROPLASTY Right 02/05/2016 right hip HX AV FISTULA CREATION Left 02/20/2021 JOINT REPLACEMENT KNEE ARTHROSCOPY Left 1988 ORTHOPEDIC SURGERY Left 1989 knee- left knee mensicus arthroscopic surgery PROSTATE BIOPSY 01/11/2014 trus bx- negative RENAL BIOPSY 12/2013 TRANSURETHRAL RESECTION OF PROSTATE 04/06/2020 Button TURP. [place] UPPER GASTROINTESTINAL ENDOSCOPY 01/02/2016 gasttitis, duodentits, GERD with esophagitis UPPER GASTROINTESTINAL ENDOSCOPY 08/22/[address] Bernard, no BE , gastritis, duodenitis and esophagus WISDOM TOOTH EXTRACTION Images from the original note were not included. Speech-Language Pathology SPEECH LANGUAGE PATHOLOGY [facility] Dysphagia Treatment Note Patient Name: Franklin Burton Evaluation Date: 11/30/2024 Date of : 1945 Admission Date: 11/25/2024 5:45 AM Age: 79 y.o. Room[facility]Bed: [facility]/3332 A Subjective Patient was awake and cooperative. Decreased appetite reported. Current Diet: Dietary Orders (From admission, onward) Start Ordered 11/29/24 1252 Adult diet Dysphagia - Minced and Moist Diet effective now Comments: Pureed/thin with 1:1 assist Question: Diet type Answer: Dysphagia - Minced and Moist 11/29/24 1251 11/26/24 1536 Supplement:Lunch, Dinner; Vanilla Magic Cup Until discontinued Question Answer Comment Frequency Lunch Frequency Dinner Select supplement: Vanilla Magic Cup 11/26/24 1536 Aspiration Precautions: - Upright positioning for all PO intake - Slow rate of intake - Small bites/sips - Supervision with PO - Alternate solid and liquids Oxygen: Oxygen Therapy: None (Room air) Pain: Pt denies any current pain. Does report mouth pain when consuming harder foods. PPE Worn: gloves Objective & Assessment Dysphagia Treatment # of Activities: 1 Dysphagia Activity 1: assess diet tolerance and potential for advancement Patient was presented with minced/moist solids and thin liquid via straw. Also given a very small amount of soft solids. Mastication was prolonged - especially with a bite sized piece of solids. Suspect same is due to recently pulled lower teeth. Oral clearance was achieved when given extra time. No s/s of aspiration with any PO presented. Tolerating current diet, not appropriate for diet advancement until gums heal. Plan & Recommendations Recommend Minced and moist solids and Thin liquids and meds as tolerated and the following precautions: - Upright positioning for all PO intake - Slow rate of intake - Small bites/sips - Alternate solid and liquids Patient has achieved all acute care [employer] goals. Speech therapy to sign off at this time. D/C Recommendations: No follow up therapy recommended post discharge Education Education Given: swallowing strategies, diet recommendations Given To: patient and spouse and daughter? Response: verbalizes understanding Goals Patient Stated Goal: to order soup for lunch Encounter Problems Encounter Problems (Resolved) Swallowing Patient will tolerate the least restrictive diet consistency to allow for safe consumption of daily meals (Completed) Start: 11/25/24 Expected End: 12/09/24 Resolved: 11/30/24 Patient will demonstrate safe swallowing Intervention/techniques (Completed) Start: 11/25/24 Expected End: 12/09/24 Resolved: 11/30/24 Patient will participate in repeat clinical dysphagia evaluation (Completed) Start: 11/25/24 Expected End: 12/09/24 Resolved: 11/26/24 Therapy Time [employer] Individual Minutes Time In: 1020 Time Out: 1030 Minutes: 10 Yana Pleitez MA, CCC/[employer]IGATION [employer] [facility] Geriatric Medicine Inpatient Consult Service Admission Date: 11/25/2024 Assessment Principal Problem: Stroke-like symptoms Active Problems: Stroke-like symptom Plan Acute Metabolic Encephalopathy --Improved, likely at cognitive baseline --Etiology likely multifactorial related to medication effect, polypharmacy, hospital environment. Risk factors include age, cognitive deficits. --Evaluated by neurology. EEG with no observed seizures. 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 Recommend to wean as able. Hold for sedation. Do not anticipate needing at discharge --[place] PRN Seroquel and Haldol for ONLY if danger to self/others/treatment --If antipsychotics are necessary for agitation, recommend seroquel 12.5 mg BID prn agitation (first line) and haldol 0.5 mg IM q6hr prn agitation (2nd line) ---Would avoid benzodiazepines in this older adult patient as this drug class increases risk of falls and confusion along with other potentially negative side effects which would outweigh any theoretical benefit. --Continue scheduled melatonin at HS --Monitor for constipation/urinary retention - last BM 11/30 --Possible medication contributions: Agree with continuing gabapentin due to risk for withdrawal (see below) Recommend to avoid hydroxyzine due to anticholinergic side effects, Cognitive deficits --+ history of cognitive decline at home. Unclear history of decline in ADL's and IADL's --TSH WNL, B12 WNL --Head imaging - MRI brain on 11/27 showing chronic ischemic and atrophic changes --Recommend outpatient follow up at [facility] ([facility]A [facility]) for more in depth cognitive evaluation when in usual state of health. Discussed with family again today. Information placed on discharge paperwork. Polypharmacy Medications reviewed with geriatric pharmacist with recommendations as below. Discussed recommendations with patient, , and daughter at bedside today with geriatric pharmacist. --Recommend to stop pregabalin at discharge, plan to continue gabapentin at increased dose nightly to reduce risk for withdrawal (see below) --Continue gabapentin 300 mg nightly at discharge --Recommend prescripting Narcan at discharge as he is prescribed Percocet outpatient --Continue home Percocet 5-325 mg PRN BID --Recommend scheduled acetaminophen 500 mg BID for pain control --Ensure referral to pain management is placed --Recommend increased family supervision for medication management and administration Debility --Related to acute illness, deconditioning, diabetes, RLS, neuropathy --Continue PT/OT as able while inpatient --Anticipate d/c to SNF for ongoing daily PT/OT per PT recommendations. Patient and family plan for patient to return home with [facility] at discharge -- vitamin D level pending Neuropathy RLS -Denies symptoms of RLS at time of visit. Pain well controlled at time time. -Agree with continuing gabapentin 300 mg nighly to avoid withdrawal. -Agree with renally dosing given his diagnosis of end-stage renal disease on hemodialysis. Plan discussed with Dr. Christianson, geriatric pharmacist, and patient's and daughter at bedside. Addendum: Call placed to patient's daughter Leonarda. Recommend not to continue scheduled Seroquel at discharge as this medication was used acutely during hospitalization for management of agitation. Leonarda verbalized understanding. Discussed with Dr. Christianson. Follow-up: Follow up at [facility] in 4 weeks Subjective Chief Complaint: stroke-like symptoms Geriatrics consulted for "rec confusion" HPI- The patient is known to me. 79 y.o. year-old male admitted to acute care from outside facility for altered mental stays. Diagnosed with acute metabolic encephalopathy. Admitted for neurological evaluation however complicated by agitation. Ammonia, vitamin B12 WNL. Patient transferred to ICU for completion management of agitation to complete EEG and MRI brain. Transferred from ICU 11/28. Hospital stay complicated by delirium. Interval History: Remains on 3W. No documented overnight events. Labs reviewed with sodium 135, BUN 14, creatinine 2.91, hemoglobin 12.0. Has not received PRN medications. Completed HD session yesterday. Plan for discharge home with [facility]. Patient awake and alert in bed with daughter and at bedside. Conversation held regarding recommendations for patient's medications at time of discharge as mentioned above. Patient reports his leg and back pain sometimes wakes him at night and he may take extra doses of medication (he states Tylenol or Percocet) to help with pain. Long conversation regarding only taking medications how he is prescribed as these high risk medications (gabapentin, pregabalin, and Percocet) can increase risk for confusion if it is not taking on a consistent basis or if missing doses. Patient reports he at times will run out of these medications and go a few days without. Reinforced only taking medications as prescribed and educated family to oversee medication management and administration. Recommendations discussed with primary service and patient open to pain medicine referral. -I spent 35 minutes talking with geriatric pharmacist and patient/family at bedside regarding plan as above. Spoke to RN. No reported overnight events. Plan to discharge home today. 11/30: Seen by [employer]. Recommending minced and moist solids and thin liquids and meds as tolerated. Seen by PT. Min, contact guard assist. Ambulated 120 ft x2. Recommending short term SNF for rehab. Review of Systems Constitutional: Positive for activity change and appetite change. Negative for fatigue. Respiratory: Positive for cough. Negative for shortness of breath. Gastrointestinal: Negative for abdominal pain and constipation. Genitourinary: Negative for difficulty urinating. Musculoskeletal: Positive for arthralgias and back pain. Negative for gait problem. Neurological: Negative for dizziness and headaches. Psychiatric/Behavioral: Negative for agitation, confusion and sleep disturbance. The patient is not nervous/anxious. Objective BP 138/100 (BP Location: Right arm, Patient Position: Sitting) Pulse 118 Temp 36.6 C (97.8 F) (Temporal) Resp 16 Ht 5' 7.99" (1.727 m) Wt 228 lb (103 kg) SpO2 98% BMI 34.68 kg/m Intake/Output Summary (Last 24 hours) at 11/30/2024 1141 Last data filed at 11/30/2024 0800 Gross per 24 hour Intake 800 ml Output -- Net 800 ml Wt Readings from Last 3 Encounters: 11/25/24 228 lb (103 kg) 08/07/23 228 lb (103 kg) 01/09/23 213 lb (96.6 kg) Current Medications[1] Physical Exam Vitals reviewed. Constitutional: No acute distress, well-nourished, well kempt Psych: Mood and affect Appropriate. Good eye contact. Cardiovascular: Regular rate and rhythm, no BLE edema Pulmonary/Chest: Clear to auscultation anterior only, normal respiratory effort, no coughing noted Abdominal: Soft, not distended, no tenderness to palpation, BS present, Neurological: alert, attentive, speech is clear and appropriate , oriented x month, year, city, and self, follows commands, no tremor Musculoskeletal: Muscle strength 5/5 RLE, 5/5 LLE. Gait: steady with assist by nurse aide, rolling walker Skin: warm and dry, no visible rashes or wounds Labs and Imaging: Recent Results (from the past 24 hours) POCT glucose meter Collection Time: 11/29/24 12:44 PM Result Value Ref Range Glucose 110 (H) 70 - 100 mg/dL Iron and TIBC Collection Time: 11/29/24 7:05 PM Result Value Ref Range IRON, TOTAL 46 (L) 65 - 175 ug/dL IRON BINDING CAPACITY 200 (L) 250 - 450 ug/dL IRON SATURATION 23.0 20.0 - 50.0 % Ferritin Collection Time: 11/29/24 7:05 PM Result Value Ref Range FERRITIN 1,202 (H) 22 - 275 ng/mL POCT glucose meter Collection Time: 11/29/24 7:31 PM Result Value Ref Range Glucose 98 70 - 100 mg/dL Comprehensive metabolic panel Collection Time: 11/30/24 5:45 AM Result Value Ref Range SODIUM 135 (L) 136 - 145 mmol/L POTASSIUM 4.0 3.5 - 5.1 mmol/L CHLORIDE 105 98 - 107 mmol/L CARBON DIOXIDE 25 23 - 31 mmol/L ANION GAP 5 3 - 13 mmol/L UREA NITROGEN 14 9 - 23 mg/dL CREATININE 2.91 (H) 0.72 - 1.25 mg/dL GLUCOSE 108 82 - 115 mg/dL CALCIUM 9.5 8.8 - 10.0 mg/dL AST (SGOT) 33 <34 U/L ALT 28 <40 U/L ALKALINE PHOSPHATASE 105 40 - 150 U/L ALBUMIN 3.4 3.4 - 4.8 g/dL BILIRUBIN, TOTAL 0.9 <1.2 mg/dL TOTAL PROTEIN 6.6 6.4 - 8.3 g/dL eGFR 21.4 (L) >60.0 mL/min/1.73m*2 CBC Collection Time: 11/30/24 5:45 AM Result Value Ref Range Auto WBC 5.2 3.6 - 10.7 10*3/uL RBC 3.89 (L) 4.40 - 5.90 10*6/uL Hemoglobin 12.0 (L) 13.0 - 18.0 g/dL Hematocrit 36.0 (L) 40.0 - 52.0 % MCV 92.5 77.0 - 99.0 fL MCH 30.8 26.0 - 34.0 pg MCHC 33.3 30.5 - 36.0 % RDW 13.0 11.5 - 15.0 % Platelets 152 140 - 440 10*3/uL MPV 9.5 9.0 - 12.7 fL Magnesium Collection Time: 11/30/24 5:45 AM Result Value Ref Range MAGNESIUM 2.0 1.6 - 2.6 mg/dL Phosphorus Collection Time: 11/30/24 5:45 AM Result Value Ref Range PHOSPHORUS 2.1 (L) 2.3 - 4.7 mg/dL PTH, intact Collection Time: 11/30/24 5:45 AM Result Value Ref Range PTH, INTACT 202.5 (H) 22.6 - 120.3 pg/mL POCT glucose meter Collection Time: 11/30/24 7:45 AM Result Value Ref Range Glucose 106 (H) 70 - 100 mg/dL Lab Results Component Value Date TSH 1.38 11/29/2024 Lab Results Component Value Date [id number] 11/25/2024 Lab Results Component Value Date [id number] 46 04/19/2019 Reviewed: allergies, imaging, active problem lists, medications, and labs [1] Current Facility-Administered Medications: acetaminophen (Tylenol) tablet 500 mg, 500 mg, Oral, q8h, Vijay Lott MD atorvastatin (Lipitor) tablet 40 mg, 40 mg, Oral, Nightly, Cristi Dasilva MD, 40 mg at 11/29/24 2140 azaTHIOprine (Imuran) tablet 50 mg, 50 mg, Oral, Lunch, Cristi Dasilva MD, 50 mg at 11/30/24 1009 benzocaine (Hurricaine) 20 % mouth spray 2 spray, 2 spray, Mouth/Throat, PRN, Vijay Lott MD, 2 spray at 11/30/24 1012 capsaicin (Zostrix) 0.025 % cream, , Topical, BID, Vijay Lott MD, Given at 11/30/24 1019 carboxymethylcellulose PF (Refresh Plus) 0.5 % ophthalmic solution 1 drop, 1 drop, Both Eyes, 4x daily PRN, Cristi Dasilva MD clopidogrel (Plavix) tablet 75 mg, 75 mg, Oral, Daily, Cristi Dasilva MD, 75 mg at 11/30/24 1009 dextrose 5 % infusion, 100 mL/hr, IntraVENous, PRN, Cristi Dasilva MD dextrose 50 % solution 12.5 g, 12.5 g, IntraVENous, PRN, Cristi Dasilva MD gabapentin (Neurontin) capsule 300 mg, 300 mg, Oral, Nightly, Vijay Lott MD glucagon (human recombinant) injection 1 mg, 1 mg, IntraMUSCular, PRN, Cristi Dasilva MD glucose oral gel 15 g, 15 g, Oral, PRN, Cristi Dasilva MD haloperidol lactate (Haldol) injection 0.5 mg, 0.5 mg, IntraMUSCular, q6h PRN, aZinab Doss, FACING CUTTING MACHINE OPERATOR - WHEEL SETTER heparin injection 5,000 Units, 5,000 Units, SubCUTAneous, 2 times per day, Cristi Dasilva MD, 5,000 Units at 11/29/24 1022 melatonin tablet 5 mg, 5 mg, Oral, Nightly, Temi Araujo, OLGA, 5 mg at 11/29/24 2139 metoprolol tartrate (Lopressor) tablet 25 mg, 25 mg, Oral, BID, Cristi Dasilva MD, 25 mg at 11/30/24 1009 naloxone (Narcan) injection 0.4 mg, 0.4 mg, IntraVENous, q5 min PRN, Aziza Christianson MD oxyCODONE-acetaminophen (Percocet) 5-325 MG per tablet 1 tablet, 1 tablet, Oral, q6h PRN, Vijay Lott MD perflutren protein A microsphere (Optison) 3 mL in sodium chloride (PF) 0.9 % 10 mL IV, 0-10 mL, IntraVENous, Once PRN, Daniel Marshall MD polyethylene glycol (PEG) 3350 (Miralax) packet 17 g, 17 g, Oral, Daily PRN, Cristi Dasilva MD QUEtiapine (SEROquel) tablet 12.5 mg, 12.5 mg, Oral, BID PRN, DENISHA Cabrera CNP QUEtiapine (SEROquel) tablet 25 mg, 25 mg, Oral, Nightly, Cristi Dasilva MD, 25 mg at 11/29/24 2139 senna-docusate sodium (Senokot-S) 8.6-50 MG tablet 2 tablet, 2 tablet, Oral, Daily, Cristi Dasilva MD, 2 tablet at 11/30/24 1009 simethicone (Mylicon) chewable tablet 80 mg, 80 mg, Oral, 4x daily PRN, Cristi Dasilva MD sodium chloride 0.9 % infusion, 5-250 mL/hr, IntraVENous, PRN, Cristi Dasilva MD sodium chloride 0.9% (NS) flush 5-40 mL, 5-40 mL, IntraVENous, q12h, Cristi Dasilva MD, 10 mL at 11/30/24 0546 sodium chloride 0.9% (NS) flush 5-40 mL, 5-40 mL, IntraVENous, PRN, Cristi Dasilva MD tamsulosin (Flomax) 24 hr capsule 0.4 mg, 0.4 mg, Oral, Daily, Cristi Dasilva MD, 0.4 mg at 11/30/24 1009 Hospitalist Progress Note - [facility] - [employer] ([facility]) 11/29/2024 1:27 PM [phone]: Please page me for patient care issues. [phone]: Please page [facility] for any issues. Subjective and Objective: Admit Date: 11/25/2024 PCP: Matilde Noguera MD No chief complaint on file. Hospital course: ICU course per Dr. Dasilva: "79 y/o M with PMHx ESRD on iHD, BPH, T2DM, Obesity, ROYAL, RLS, GPA, HFpEF (EF 50% on 11/25/24), chronic back pain with neuropathy who presented to [facility] as a transfer from outside facility for evaluation of AMS. Pt admitted to the hospitalist service with neurology consult. Plan is for EEG and MRI for further evaluation. However, the patient was notably too agitated for these studies to be completed. ICU consulted for admission for control of agitation. [11/27 events:] Overnight, patient became delirious and required 12.5 mg of Seroquel and was restarted on precedex. Also, he was complaining of abdominal discomfort so senna and simethicone were given. This morning patient is heavily sedated due to precedex. He is only responding to verbal stimuli and is not following commands. Family updated regarding plan for potential transfer to floor later in the day." Pt transferred to [facility] 11/28. Neurocritical care advised against LP. [employer] eval ordered for dysphagia, diet advanced with improvement in encephalopathy. MRI brain 11/26 with probable chronic ischemic and atrophic changes. EEG performed 11/27, interpreted as Continuous diffuse mild slowing is seen not responsive to stimulation...findings are supportive of a stable mild global encephalopathy non-specific as to etiology." Neuro was concerned for dialysis disequilibrium syndrome, however nephrology did not suspect this was the cause given that the patient did not possess typical risk factors for large swings in solutes as far as new onset dialysis or when restarting dialysis after significant lapses in treatment. Per discussions with family, pt was taking extra of pain medications including lyrica and gabapentin. Takes for restless legs + LE neuropathy. Inconsistent dosing may have resulted in unintentional dose accumulation leading up to his presentation. Prior episode approx 1yr ago was preceded by severe back pain a few days before, therefore concern that pt could have been taking extra doses at that time too. Geriatrics consulted for AMS workup. Interval Updates: 11/29/24 -Per discussions with family, pt was taking extra of pain medications including lyrica and gabapentin. Takes for restless legs + LE neuropathy. Inconsistent dosing (some days takes extra then will skip other days) in conjunction with dialysis dependence (skipping vs extra doses on dialysis or nondialysis days?) may have resulted in dose accumulation and neurological sequelae. Was instructed to take medications as prescribed to avoid this possible side effect. -Ordered restless leg workup including iron studies, PTH. -Appreciated geriatrics recs. Will be coming by with [facility] to see patient tomorrow prior to discharged, I asked pt and family to discuss whether it would be better to stop (wean off) chronic medication (gabapentin) or relatively newer medication (lyrica). Lyrica discontinued for now. -Family would like for pt to be transported home due to weakness if he is unable to ambulate/pivot without assistance (home uses walker, wheelchair). Need to discuss with staff to arrange transportation. DC in AM; family wants [facility] Adult diet Dysphagia - Minced and Moist Dietary Orders (From admission, onward) Start Ordered 11/29/24 1252 Adult diet Dysphagia - Minced and Moist Diet effective now Comments: Pureed/thin with 1:1 assist Question: Diet type Answer: Dysphagia - Minced and Moist 11/29/24 1251 11/26/24 1536 Supplement:Lunch, Dinner; Vanilla Magic Cup Until discontinued Question Answer Comment Frequency Lunch Frequency Dinner Select supplement: Vanilla Magic Cup 11/26/24 1536 I/O last 3 completed shifts: In: - (0 mL/kg) Out: 100 (1 mL/kg) [Urine:100 (0 mL/kg/hr)] Weight: 103.4 kg @IODETAILS@ @[id number]@ Medications: Continuous Meds[1] Scheduled Meds[2] Recent Labs 11/27/2431411/28/2420011/29/24347 WBC 5.9 4.6 4.2 HGB 11.1* 10.5* 10.7* PLT 114* 118* 123* Recent Labs 11/27/2431411/28/2420011/29/24347 NA 136 134* 134* K 3.9 4.1 3.8 CL 103 105 106 CO2 24 22* 21* BUN 16 26* 31* CREATININE 2.84* 3.52* 4.03* GLUCOSE 110 97 94 Recent Labs 11/27/24314 11/28/24 0201 11/29/24 0348 AST 27 31 35* ALT 9 16 25 BILITOT 1.2* 0.8 0.9 ALKPHOS 83 82 91 No results found for: "TRIG", "HDL", "LDLCALC", "CHOL" No results found for: "PHART", "PO2ART", "IHX8EKA" No results for input(s): "INR" in the last 72 hours. No results for input(s): "CKTOTAL", "CKMB", "TROPONINI" in the last 72 hours. No results for input(s): "DDIMER" in the last 72 hours. No results found for: "HGBA1C" Lab Results Component Value Date TSH 1.38 11/29/2024 Urine Culture: No results found for this or any previous visit. Objective: Vitals: BP 151/96 (BP Location: Right arm, Patient Position: Sitting) Pulse 96 Temp 36.4 C (97.5 F) (Temporal) Resp 16 Ht 5' 7.99" (1.727 m) Wt 228 lb (103 kg) SpO2 94% BMI 34.68 kg/m Pulse Ox: SpO2 Av.5 % Min: 93 % Max: 96 % Physical Exam Vitals reviewed. Constitutional: General: He is not in acute distress. Appearance: He is not ill-appearing or toxic-appearing. HENT: Mouth/Throat: Mouth: Mucous membranes are moist. Eyes: Extraocular Movements: Extraocular movements intact. Cardiovascular: Rate and Rhythm: Normal rate. Pulmonary: Effort: Pulmonary effort is normal. Skin: General: Skin is dry. Neurological: Mental Status: He is alert and oriented to person, place, and time. Psychiatric: Mood and Affect: Mood normal. ANATOMY/TUBES/LINES: N/A Running Summary, Assessment, and Plan Acute, acute on chronic, unstable/uncontrolled chronic problems/diagnoses: Acute encephalopathy, suspect polypharmacy related (resolved) Delirium, improved -Avoiding narcotics and benzos. -Patient became delirious overnight on 11/26 -Delirium protocol in place -Is not tolerating the precedex -Scheduled Seroquel 25 mg nightly -Neurology consulted: Neuro suspect dialysis disequilibrium syndrome, nephro does not believe it was. MRI brain showing only chronic ischemic and atrophic changes. -Geriatrics consulted, appreciated recs -Infectious workup including blood cultures and UA. Low suspicion for infection. -BUN normal, Ammonia normal Debility, progressive -Skilled for SNF, family and pt prefer [facility] Stable chronic problems affecting care, new non-acute diagnoses: ESRD on HD MWF - nephro following, appreciated recs Chronic anemia Thrombocytopenia, acute on chronic/borderline HFpEF, HTN - Hx ROYAL - does not use PAP at home Hx RLS - home gabapentin T2DM As a result of the above findings & factors, the following mgmt was pursued: - as above - am labs, replace lytes prn - PT/OT/CM/SW as appropriate - delirium precautions: limit night-time awakening - DVT prophylaxis: sqh Complexity: Acute illness or injury posing a threat to life or body function (HIGH). Risk: Admission to hospital-level care was considered or occurred (HIGH). Anticipated Discharge - Date - 11/30 - Location - [facility] - Pending the following - medically ready, req transportation for home Total time spent (which include face to face and non face to face encounters) in minutes: 51 Extended Emergency Contact Information Primary Emergency Contact: Dimitri Burton Mobile Relation: Son Secondary Emergency Contact: Leonarda Carmona Relation: Child Vijay Lott MD Division of Hospitalist Medicine Inpatient Medical Services/[facility] [1] [2] atorvastatin, 40 mg, Oral, Nightly azaTHIOprine, 50 mg, Oral, Lunch capsaicin, , Topical, BID clopidogrel, 75 mg, Oral, Daily gabapentin, 200 mg, Oral, Nightly heparin, 5,000 Units, SubCUTAneous, 2 times per day melatonin, 5 mg, Oral, Nightly metoprolol tartrate, 25 mg, Oral, BID QUEtiapine, 25 mg, Oral, Nightly senna-docusate sodium, 2 tablet, Oral, Daily sodium chloride 0.9%, 5-40 mL, IntraVENous, q12h tamsulosin, 0.4 mg, Oral, Daily Images from the original note were not included. Speech-Language Pathology SPEECH LANGUAGE PATHOLOGY [facility] Dysphagia Treatment Note Patient Name: Franklin Burton Evaluation Date: 11/29/2024 Date of : 1945 Admission Date: 11/25/2024 5:45 AM Age: 79 y.o. Room/Bed: [facility]332/3[facility] A Subjective Patient alert and cooperative. Seen upright in bed. Answers all basic questions with clear, strong vocal quality. Follows all basic commands. Visitors at bedside - spouse. Spoke with RN, Glen, who cleared pt for treatment. Current Diet: Dietary Orders (From admission, onward) Start Ordered 11/26/24 1536 Supplement:Lunch, Dinner; Vanilla Magic Cup Until discontinued Question Answer Comment Frequency Lunch Frequency Dinner Select supplement: Vanilla Magic Cup 11/26/24 1536 11/26/24 1030 Adult diet Dysphagia - Pureed Diet effective now Comments: Pureed/thin with 1:1 assist Question: Diet type Answer: Dysphagia - Pureed 11/26/24 1031 Aspiration Precautions: - Upright positioning for all PO intake - Slow rate of intake - Small bites/sips - PO when fully alert - 1:1 Assistance - as needed - Single sips Oxygen: Oxygen Therapy: None (Room air) O2 Delivery Method: Nasal cannula O2 Flow Rate (L/min): 2 L/min Pain: Pt denies any current pain. PPE Worn: gloves Objective & Assessment Activity 1: diet tolerance Pt was repositioned in bed to be upright. Agreeable to PO trials. Reports bottom dentition were pulled last month and gums are "Finally healing". Upper dentures in place. Accepted liquids via cup edge, self-fed, WFL. Tolerated puree solids WFL. Trialed minced/moist & soft/bite sized textures this date. Pt tolerated minced/moist solids with timely mastication, achieved full bolus clearance. Soft/bite sized solids resulted in more prolonged mastication/oral holding "I have to let it soak in my mouth a bit". Pt did clear soft/bite sized solids but also complained of gums "feeling sore". There were no overt s/s of aspiration/penetration noted. Vocal quality remained clear. Appropriate for small diet advancement. Plan & Recommendations Plan: Continue acute [employer] therapy per initial plan of care and established goals. Recommend Minced and moist solids and Thin liquids and meds as tolerated and the following precautions: - Upright positioning for all PO intake - Slow rate of intake - Small bites/sips - Supervision with PO - Alternate solid and liquids D/C Recommendations: to be determined Education Education Given: swallowing strategies, diet recommendations Given To: patient, spouse, and RN Response: verbalizes understanding Goals Patient Stated Goal: "get up and move a bit" Encounter Problems Encounter Problems (Active) Swallowing Patient will tolerate the least restrictive diet consistency to allow for safe consumption of daily meals (Progressing) Start: 11/25/24 Expected End: 12/09/24 Patient will demonstrate safe swallowing Intervention/techniques (Progressing) Start: 11/25/24 Expected End: 12/09/24 Patient will participate in repeat clinical dysphagia evaluation (Completed) Start: 11/25/24 Expected End: 12/09/24 Resolved: 11/26/24 Therapy Time [employer] Individual Minutes Time In: 1110 Time Out: 1125 Minutes: 15 Sarah Bass CCC-[employer] Images from the original note were not included. Nephrology Progress Note Patient: Franklin Burton Room number: [id number] A Date of Admit: 11/25/2024 LOS: 4 days Referring physician: Vijay Lott MD Outpatient Armored Car Guard: Tamia Marquez Assessment / Plan Franklin Burton is a 79 y.o. male with a past medical history of ESRD on HD MWF at [facility], GPA, DM type 2, HTN, HFrEF, BPH, GERD, ROYAL, OA, obesity, RLS, neuropathy, who was brought in from OSH due to AMS. Pt had HD and went home, then woke up agitated, feeling nauseated and confused, undergoing neurologic work up. Renal plan: 1-ESRD on HD MWF -will plan for next HD today -he is on gabapentin, lyrica discontinued 2-Anemia: -Hgb 10.7, at goal -hold JENNIFER 3-QAMAR: -last Ca was 8.8 and phosphorus 2.6 -not on binders 4-BP/volume status: -last BP was 151/96 -he is on metoprolol 25 mg bid -TTE EF 50%. pHTN present. IVC not visualized. -will investigate EDW -HD today with 2 L UF goal 5-AMS: -neuro following -unlikely to be dds -geriatrics consulted 6-ID: -blood cx NGTD -not on Abs currently -he is on azathioprine for GPA, establishing with Dr. Palma ([facility]) next week Thank you for allowing us to participate in the care of this patient. Please call with any questions. Aleyda Martinez MD [facility] ([facility]) Office phone: [phone] Office fax: [phone] 11/29/2024 Subjective Patient was seen and examined this am. Family at bedside. He was complaining of a sore throat. He denies any cough, nausea, vomiting, SOB or abdominal pain. He can't recall last BM. Family notes he is less restless this am. Medications Scheduled Meds:Scheduled Meds[1] Continuous Infusions:Continuous Meds[2] Review of Systems As above Vital Signs Vitals: 11/28/24 2136 11/29/24 0146 11/29/24 0516 11/29/24 0935 BP: (!) 171/97 158/95 156/96 151/96 BP Location: Right arm Right arm Right arm Right arm Patient Position: Sitting Sitting Sitting Sitting Pulse: 87 93 89 96 Resp: 16 24 20 16 Temp: 36.5 C (97.7 F) 36.5 C (97.7 F) 36.3 C (97.4 F) 36.4 C (97.5 F) TempSrc: Temporal Temporal Temporal Temporal SpO2: 96% 95% 93% 94% Weight: Height: Wt Readings from Last 3 Encounters: 11/25/24 103 kg (228 lb) 08/07/23 103 kg (228 lb) 01/09/23 96.6 kg (213 lb) Admit Wt: Weight: 103 kg (228 lb) Estimated body mass index is 34.68 kg/m as calculated from the following: Height as of this encounter: 1.727 m (5' 7.99"). Weight as of this encounter: 103 kg (228 lb). Physical Exam General: awake and alert, lying comfortable in bed in NAD, still somewhat slow to answer questions. He is on RA. HEENT: Sclera clear, EOMI, MMM, Nose/ears/hearing grossly normal Neck: Supple, trachea midline, no mass Chest: Normal excusion Heart: RRR, no rub/heave Lungs: Clear bilaterally, unlabored Abd: Soft, (+) BS, non-tender, non distended Ext: No edema Neuro: No tremor/myoclonus Skin: warm and dry, no rash LUE AVF with thrill and bruit present LABS Labs reviewed. Recent Labs 11/27/2431411/28/2420011/29/24347 WBC 5.9 4.6 4.2 HGB 11.1* 10.5* 10.7* HCT 33.7* 31.9* 32.1* MCV 93.6 93.5 92.8 PLT 114* 118* 123* Recent Labs 11/27/2431411/28/2420011/29/24347 ALT 9 16 25 AST 27 31 35* ALKPHOS 83 82 91 BILITOT 1.2* 0.8 0.9 Diagnostic Studies MRI brain 11/27: 1. No acute intracranial findings. 2. Probable chronic ischemic and atrophic changes. CXR 11/25: No acute cardiopulmonary process. The patient may proceed with MRI in regards to this exam. CT head 11/25: 1. No acute intracranial abnormality. 2. Diffuse cortical volume loss and chronic small vessel ischemic changes. [1] atorvastatin, 40 mg, Oral, Nightly azaTHIOprine, 50 mg, Oral, Lunch clopidogrel, 75 mg, Oral, Daily gabapentin, 200 mg, Oral, Nightly heparin, 5,000 Units, SubCUTAneous, 2 times per day melatonin, 5 mg, Oral, Nightly metoprolol tartrate, 25 mg, Oral, BID QUEtiapine, 25 mg, Oral, Nightly senna-docusate sodium, 2 tablet, Oral, Daily sodium chloride 0.9%, 5-40 mL, IntraVENous, q12h tamsulosin, 0.4 mg, Oral, Daily [2] [facility] Geriatric Medicine Inpatient Consult Service Admission Date: 11/25/2024 Assessment Principal Problem: Stroke-like symptoms Active Problems: Stroke-like symptom Plan Acute Metabolic Encephalopathy --Waxing/waning --Etiology likely multifactorial related to medication effect, polypharmacy, dialysis, hospital environment. Risk factors include age, cognitive deficits. --Evaluated by neurology. EEG with no observed seizures. 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 Recommend to wean as able. Hold for sedation. --[place] PRN Seroquel and Haldol for ONLY if danger to self/others/treatment --If antipsychotics are necessary for agitation, recommend seroquel 12.5 mg BID prn agitation (first line) and haldol 0.5 mg IM q6hr prn agitation (2nd line) ---Would avoid benzodiazepines in this older adult patient as this drug class increases risk of falls and confusion along with other potentially negative side effects which would outweigh any theoretical benefit. --Continue scheduled melatonin at HS --Monitor for constipation/urinary retention - last BM 11/29 --Possible medication contributions: Agree with continuing gabapentin due to risk for withdrawal Recommend to avoid hydroxyzine due to anticholinergic side effects, Cognitive deficits --+ history of cognitive decline at home. Unclear history of decline in ADL's and IADL's --TSH WNL, B12 WNL --Head imaging - MRI brain on 11/27 showing chronic ischemic and atrophic changes --Recommend outpatient follow up at [facility] for more in depth cognitive evaluation when in usual state of health. Polypharmacy Medications reviewed with geriatric pharmacist with recommendations as below --Monitor for opioid withdrawal symptoms and uncontrolled pain. Consider initiation of oxycodone 2.5 mg PO BID PRN moderate-severe pain or low-dose oral hydromorphone (0.5 mg PO BID PRN moderate-severe pain). If agitated, first screen for pain. --Uncertain need for both pregabalin and gabapentin. Agree with elimination of pregabalin but, to avoid withdrawal, consider changing gabapentin to 300 mg PO QHS if pregabalin 25 mg PO BID is stopped abruptly. --Agree with fasting iron panel to detect reversible contributors to restless legs syndrome. --Consider initiation of acetaminophen 1000 mg PO TID and discontinuation of PRN order. Debility --Related to acute illness, deconditioning, diabetes, RLS, neuropathy --Continue PT/OT as able while inpatient --Anticipate d/c to SNF for ongoing daily PT/OT --Will check vitamin D level Neuropathy RLS -Denies symptoms of RLS at time of visit. Pain well controlled at time time. - Agree with continuing gabapentin to avoid withdrawal. - Agree with renally dosing given his diagnosis of end-stage renal disease on hemodialysis. Plan discussed with Dr. Lott and geriatric pharmacist. Follow-up: will follow with you Subjective Chief Complaint: stroke-like symptoms Geriatrics consulted for "rec confusion" HPI- The patient is new to me but seen by the Geriatric Inpatient Consult team. 79 y.o. year-old male admitted to acute care from outside facility for altered mental stays. Diagnosed with acute metabolic encephalopathy. Admitted for neurological evaluation however complicated by agitation. Ammonia, vitamin B12 WNL. Patient transferred to ICU for completion management of agitation to complete EEG and MRI brain. Interval History: Transferred to telemetry. Per review of chart, mentation improved on 11/26 and felt to be dialysis disequilibrium syndrome per neurology evaluation. Received PRN Haldol 2 mg overnight and PRN hydroxyzine. Seen by nephology this morning with AMS unlikely to be Dds. Plan for HD today. Per progress note, information provided for new PCP. Labs reviewed with sodium 134, BUN 31, creatinine 4.03, hemoglobin 10.7. Patient awake and alert in bed. Ambulated back to bed with nurse aide and nurse strawberry grower at bedside. Patient denies pain and reports he slept well overnight. Reports he takes pregabalin, gabapentin, and percocet for RLS to help with the pain. Spoke to at bedside. Patient's mentation has improved since his admission. He is close to baseline mentation. Overnight he told his he had screws and was looking for a drawer to put the screws in. She states he was not this confused at night prior to admission. Reports he was forgetful at times. She is agreeable to follow up with geriatrics outpatient. Will provide information on discharge paperwork. Spoke to nurse strawberry grower at bedside. Patient was agitated overnight and received PRN medications. No reported agitation this morning. 11/29: Seen by [employer]. Recommending minced and moist solids and thin liquids and meds as tolerated. Seen by PT. Min, contact guard assist. Ambulated 120 ft x2. Recommending short term SNF for rehab. Review of Systems Constitutional: Positive for appetite change (decreased). Negative for activity change and fatigue. Respiratory: Positive for cough. Negative for shortness of breath. Gastrointestinal: Negative for abdominal pain and constipation. Genitourinary: Negative for difficulty urinating. Musculoskeletal: Negative for arthralgias and gait problem. Neurological: Negative for dizziness and headaches. Psychiatric/Behavioral: Negative for agitation, confusion and sleep disturbance. The patient is not nervous/anxious. Objective BP 156/96 (BP Location: Right arm, Patient Position: Sitting) Pulse 89 Temp 36.3 C (97.4 F) (Temporal) Resp 20 Ht 5' 7.99" (1.727 m) Wt 228 lb (103 kg) SpO2 93% BMI 34.68 kg/m Intake/Output Summary (Last 24 hours) at 11/29/2024 0902 Last data filed at 11/29/2024 0835 Gross per 24 hour Intake 480 ml Output -- Net 480 ml Wt Readings from Last 3 Encounters: 11/25/24 228 lb (103 kg) 08/07/23 228 lb (103 kg) 01/09/23 213 lb (96.6 kg) Current Medications[1] Physical Exam Vitals reviewed. Constitutional: No acute distress, well-nourished, well kempt Psych: Mood and affect Appropriate. Good eye contact. Cardiovascular: Regular rate and rhythm, no BLE edema Pulmonary/Chest: Clear to auscultation anterior only, normal respiratory effort, no coughing noted Abdominal: Soft, not distended, no tenderness to palpation, BS present, Neurological: alert, attentive, speech is clear but vague , oriented x month, year, city, and self, follows commands, no tremor Musculoskeletal: Muscle strength 5/5 RLE, 5/5 LLE. Gait: steady with assist by nurse aide and nurse strawberry grower at bedside, rolling walker Skin: warm and dry, no visible rashes or wounds Labs and Imaging: Recent Results (from the past 24 hours) POCT glucose meter Collection Time: 11/28/24 11:51 AM Result Value Ref Range Glucose 119 (H) 70 - 100 mg/dL POCT glucose meter Collection Time: 11/28/24 6:34 PM Result Value Ref Range Glucose 112 (H) 70 - 100 mg/dL POCT glucose meter Collection Time: 11/29/24 1:48 AM Result Value Ref Range Glucose 103 (H) 70 - 100 mg/dL Comprehensive metabolic panel Collection Time: 11/29/24 3:48 AM Result Value Ref Range SODIUM 134 (L) 136 - 145 mmol/L POTASSIUM 3.8 3.5 - 5.1 mmol/L CHLORIDE 106 98 - 107 mmol/L CARBON DIOXIDE 21 (L) 23 - 31 mmol/L ANION GAP 7 3 - 13 mmol/L UREA NITROGEN 31 (H) 9 - 23 mg/dL CREATININE 4.03 (H) 0.72 - 1.25 mg/dL GLUCOSE 94 82 - 115 mg/dL CALCIUM 8.8 8.8 - 10.0 mg/dL AST (SGOT) 35 (H) <34 U/L ALT 25 <40 U/L ALKALINE PHOSPHATASE 91 40 - 150 U/L ALBUMIN 3.2 (L) 3.4 - 4.8 g/dL BILIRUBIN, TOTAL 0.9 <1.2 mg/dL TOTAL PROTEIN 6.1 (L) 6.4 - 8.3 g/dL eGFR 14.5 (L) >60.0 mL/min/1.73m*2 CBC Collection Time: 11/29/24 3:48 AM Result Value Ref Range Auto WBC 4.2 3.6 - 10.7 10*3/uL RBC 3.46 (L) 4.40 - 5.90 10*6/uL Hemoglobin 10.7 (L) 13.0 - 18.0 g/dL Hematocrit 32.1 (L) 40.0 - 52.0 % MCV 92.8 77.0 - 99.0 fL MCH 30.9 26.0 - 34.0 pg MCHC 33.3 30.5 - 36.0 % RDW 12.9 11.5 - 15.0 % Platelets 123 (L) 140 - 440 10*3/uL MPV 10.1 9.0 - 12.7 fL Magnesium Collection Time: 11/29/24 3:48 AM Result Value Ref Range MAGNESIUM 1.9 1.6 - 2.6 mg/dL Phosphorus Collection Time: 11/29/24 3:48 AM Result Value Ref Range PHOSPHORUS 2.6 2.3 - 4.7 mg/dL POCT glucose meter Collection Time: 11/29/24 5:52 AM Result Value Ref Range Glucose 94 70 - 100 mg/dL Lab Results Component Value Date TSH 3.739 04/09/2021 Lab Results Component Value Date [id number] 429 11/25/2024 Lab Results Component Value Date VITD25 46 04/19/2019 Reviewed: allergies, imaging, active problem lists, medications, and labs [1] Current Facility-Administered Medications: acetaminophen (Tylenol) tablet 650 mg, 650 mg, Oral, q6h PRN, 650 mg at 11/26/241999 OR acetaminophen (Tylenol) suppository 650 mg, 650 mg, Rectal, q6h PRN, Cristi Dasilva MD atorvastatin (Lipitor) tablet 40 mg, 40 mg, Oral, Nightly, Cristi Dasilva MD, 40 mg at 11/28/242105 azaTHIOprine (Imuran) tablet 50 mg, 50 mg, Oral, Lunch, Cristi Dasilva MD, 50 mg at 11/28/24 0836 benzocaine (Hurricaine) 20 % mouth spray 2 spray, 2 spray, Mouth/Throat, PRN, Vijay Lott MD carboxymethylcellulose PF (Refresh Plus) 0.5 % ophthalmic solution 1 drop, 1 drop, Both Eyes, 4x daily PRN, Cristi Dasilva MD clopidogrel (Plavix) tablet 75 mg, 75 mg, Oral, Daily, Cristi Dasilva MD, 75 mg at 11/28/24 0837 dextrose 5 % infusion, 100 mL/hr, IntraVENous, PRN, Cristi Dasilva MD dextrose 50 % solution 12.5 g, 12.5 g, IntraVENous, PRN, Cristi Dasilva MD gabapentin (Neurontin) capsule 200 mg, 200 mg, Oral, Nightly, Cristi Dasilva MD, 200 mg at 11/28/242104 glucagon (human recombinant) injection 1 mg, 1 mg, IntraMUSCular, PRN, Cristi Dasilva MD glucose oral gel 15 g, 15 g, Oral, PRN, Cristi Dasilva MD heparin injection 5,000 Units, 5,000 Units, SubCUTAneous, 2 times per day, Cristi Dasilva MD, 5,000 Units at 11/28/242104 melatonin tablet 5 mg, 5 mg, Oral, Nightly, Temi Araujo, OLGA, 5 mg at 11/28/24 234 metoprolol tartrate (Lopressor) tablet 25 mg, 25 mg, Oral, BID, Cristi Dasilva MD, 25 mg at 11/28/242104 perflutren protein A microsphere (Optison) 3 mL in sodium chloride (PF) 0.9 % 10 mL IV, 0-10 mL, IntraVENous, Once PRN, Daniel Marshall MD polyethylene glycol (PEG) 3350 (Miralax) packet 17 g, 17 g, Oral, Daily PRN, Cristi Dasilva MD QUEtiapine (SEROquel) tablet 25 mg, 25 mg, Oral, Nightly, Cristi Dasilva MD, 25 mg at 11/28/242105 senna-docusate sodium (Senokot-S) 8.6-50 MG tablet 2 tablet, 2 tablet, Oral, Daily, Cristi Dasilva MD, 2 tablet at 11/28/24 0842 simethicone (Mylicon) chewable tablet 80 mg, 80 mg, Oral, 4x daily PRN, Cristi Dasilva MD sodium chloride 0.9 % infusion, 5-250 mL/hr, IntraVENous, PRN, Cristi Dasilva MD sodium chloride 0.9% (NS) flush 5-40 mL, 5-40 mL, IntraVENous, q12h, Cristi Dasilva MD, 10 mL at 11/29/24 0548 sodium chloride 0.9% (NS) flush 5-40 mL, 5-40 mL, IntraVENous, PRN, Cristi Dasilva MD tamsulosin (Flomax) 24 hr capsule 0.4 mg, 0.4 mg, Oral, Daily, Cristi Dasilva MD, 0.4 mg at 11/28/24 0837 Hospitalist Progress Note - [facility] [employer] ([facility]) 11/28/2024 10:46 AM [phone]: Please page me for patient care issues. [phone]: Please page [facility] for any issues. Subjective and Objective: Admit Date: 11/25/2024 PCP: Matilde Noguera MD No chief complaint on file. Hospital course: ICU course per Dr. Dasilva: "79 y/o M with PMHx ESRD on iHD, BPH, T2DM, Obesity, ROYAL, RLS, GPA, HFpEF (EF 50% on 11/25/24), chronic back pain with neuropathy who presented to [facility] as a transfer from outside facility for evaluation of AMS. Pt admitted to the hospitalist service with neurology consult. Plan is for EEG and MRI for further evaluation. However, the patient was notably too agitated for these studies to be completed. ICU consulted for admission for control of agitation. [11/27 events:] Overnight, patient became delirious and required 12.5 mg of Seroquel and was restarted on precedex. Also, he was complaining of abdominal discomfort so senna and simethicone were given. This morning patient is heavily sedated due to precedex. He is only responding to verbal stimuli and is not following commands. Family updated regarding plan for potential transfer to floor later in the day." Pt transferred to [facility] 11/28. Neurocritical care advised against LP. [employer] eval ordered. EEG performed 11/27, interpreted as Continuous diffuse mild slowing is seen not responsive to stimulation...findings are supportive of a stable mild global encephalopathy non-specific as to etiology." Interval Updates: 11/28/24 -Phos 2.0 (1.6), BMP stable, CBC stable. -VSS -Met with pt and family at bedside, ultimately pt's mentation improving but still mildly encephalopathic. Nephro does not believe this was dialysis dysequilibrium syndrome. Consider discussion with geriatrics tomorrow for dementia/delirium -Skilled for SNF, discuss with TCC tomorrow. Pt reports progressive debility over course of some months Adult diet Dysphagia - Pureed Dietary Orders (From admission, onward) Start Ordered 11/26/24 1536 Supplement:Lunch, Dinner; Vanilla Magic Cup Until discontinued Question Answer Comment Frequency Lunch Frequency Dinner Select supplement: Vanilla Magic Cup 11/26/24 1536 11/26/24 1030 Adult diet Dysphagia - Pureed Diet effective now Comments: Pureed/thin with 1:1 assist Question: Diet type Answer: Dysphagia - Pureed 11/26/24 1031 I/O last 3 completed shifts: In: 1310.3 (12.7 mL/kg) [I.V.:1310.3 (12.7 mL/kg)] Out: 150 (1.5 mL/kg) [Urine:150 (0 mL/kg/hr)] Weight: 103.4 kg @IODETAILS@ @[id number]@ Medications: Continuous Meds[1] Scheduled Meds[2] Recent Labs 11/26/2441911/26/24 0647 11/27/2431411/28/24 0201 WBC 6.5 -- 5.9 4.6 HGB 11.6* 12.0 11.1* 10.5* PLT 101* -- 114* 118* Recent Labs 11/26/2441911/27/245 11/28/24 0201 NA 130* 136 134* K 5.6* 3.9 4.1 CL 102 103 105 CO2 24 24 22* BUN 18 16 26* CREATININE 3.67* 2.84* 3.52* GLUCOSE 108 110 97 Recent Labs 11/26/2441911/27/245 11/28/24 0201 AST 25 27 31 ALT 10 9 16 BILITOT 0.8 1.2* 0.8 ALKPHOS 81 83 82 No results found for: "TRIG", "HDL", "LDLCALC", "CHOL" No results found for: "PHART", "PO2ART", "ACU6LZE" No results for input(s): "INR" in the last 72 hours. No results for input(s): "CKTOTAL", "CKMB", "TROPONINI" in the last 72 hours. No results for input(s): "DDIMER" in the last 72 hours. No results found for: "HGBA1C" No results found for: "TSH" Urine Culture: No results found for this or any previous visit. Objective: Vitals: BP 143/80 (BP Location: Right arm, Patient Position: Lying) Pulse 92 Temp 36.7 C (98.1 F) (Temporal) Resp 16 Ht 5' 7.99" (1.727 m) Wt 228 lb (103 kg) SpO2 95% BMI 34.68 kg/m Pulse Ox: SpO2 Av % Min: 93 % Max: 100 % Physical Exam Vitals reviewed. Constitutional: General: He is not in acute distress. Appearance: He is not ill-appearing or toxic-appearing. HENT: Mouth/Throat: Mouth: Mucous membranes are moist. Eyes: Extraocular Movements: Extraocular movements intact. Cardiovascular: Rate and Rhythm: Normal rate. Pulmonary: Effort: Pulmonary effort is normal. Skin: General: Skin is dry. Neurological: Mental Status: He is alert and oriented to person, place, and time. Comments: Oriented but still encephalopathic Psychiatric: Mood and Affect: Mood normal. ANATOMY/TUBES/LINES: N/A Running Summary, Assessment, and Plan Acute, acute on chronic, unstable/uncontrolled chronic problems/diagnoses: Acute encephalopathy, unclear etiology -Avoiding narcotics and benzos. -Patient became delirious overnight on 11/26 -Delirium protocol in place -Is not tolerating the precedex -Scheduled Seroquel 25 mg nightly -Neurology consulted: Neuro suspect dialysis disequilibrium syndrome, nephro does not believe it was. MRI brain showing only chronic ischemic and atrophic changes. -Geriatrics consulted, appreciated recs -Infectious workup including blood cultures and UA. Low suspicion for infection. -BUN normal, Ammonia normal Debility, progressive -Skilled for SNF, discuss placement vs home with TCC Stable chronic problems affecting care, new non-acute diagnoses: ESRD on HD MWF - nephro following, appreciated recs Chronic anemia Thrombocytopenia, acute on chronic/borderline HFpEF, HTN - Hx ROYAL - does not use PAP at home Hx RLS - home gabapentin T2DM As a result of the above findings & factors, the following mgmt was pursued: - as above - am labs, replace lytes prn - PT/OT/CM/SW as appropriate - delirium precautions: limit night-time awakening - DVT prophylaxis: sqh Complexity: Acute illness or injury posing a threat to life or body function (HIGH). Risk: Admission to hospital-level care was considered or occurred (HIGH). Anticipated Discharge - Date - tbd - Location - tbd - Pending the following - clinical course, specialist recs, improved mentation Total time spent (which include face to face and non face to face encounters) in minutes: 51 Extended Emergency Contact Information Primary Emergency Contact: Dimitri Burton Mobile Relation: Son Secondary Emergency Contact: Mathew,Leonarda Relation: Child Vijay Lott MD Division of Hospitalist Medicine Inpatient Medical Services/[facility] [1] [2] atorvastatin, 40 mg, Oral, Nightly azaTHIOprine, 50 mg, Oral, Lunch clopidogrel, 75 mg, Oral, Daily gabapentin, 200 mg, Oral, Nightly heparin, 5,000 Units, SubCUTAneous, 2 times per day metoprolol tartrate, 25 mg, Oral, BID QUEtiapine, 25 mg, Oral, Nightly senna-docusate sodium, 2 tablet, Oral, Daily sodium chloride 0.9%, 5-40 mL, IntraVENous, q12h tamsulosin, 0.4 mg, Oral, Daily Images from the original note were not included. PHYSICAL THERAPY [facility] Initial Evaluation Name/MRN: Franklin Burton ([id number]) Evaluation Date: 11/28/2024 Date of : 1945 Admission Date: 11/25/2024 5:45 AM Age: 79 y.o. Room/Bed: 3332/[facility] A Discharge Recommendation: Long-Term Facility Equipment Needed: No Assessment IMPRESSION: Pt admitted for AMS at dialysis. He is currently Min-Mod assist for bed mobility, transfers and ambulation with the FWW. Pt reported feeling weaker than usual as well. Currently at risk for falls. Recommend disch to SNF. Admitting Diagnosis: Stroke-like symptoms Prognosis: fair Performance Deficits /Impairments: Decreased Functional Mobility, Decreased ADL status, Decreased Endurance, Decreased Balance, and Decreased High Level IADLs Decision Making: Medium Complexity Subjective Pt in the bed and agreeable to PT. RN OK with PT to see pt. Pt reported he is feeling better than yesterday but still weak. Pain: Pt denies any current pain. Past Medical History: Medical History[1] Past Surgical History: Surgical History[2] Admission Diagnosis: Patient Active Problem List Diagnosis Date Noted Stroke-like symptom 11/25/2024 Stroke-like symptoms 11/25/2024 Allergic rhinitis 08/07/2023 Chronic insomnia 08/07/2023 Chronic maxillary sinusitis 08/07/2023 Nasal obstruction 08/07/2023 Nasal septal perforation 08/07/2023 Sensorineural hearing loss (SNHL), bilateral 08/07/2023 Swelling of upper extremity 08/07/2023 Tinnitus, bilateral 08/07/2023 Tremor 08/07/2023 Malnutrition of mild degree ([facility]) 03/09/2023 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 ([facility]) 03/01/2023 Peritoneal dialysis catheter in situ ([facility]) ([facility]) 03/01/2023 Periumbilical abdominal pain 03/01/2023 Motion sickness 12/24/2022 Arthralgia 12/02/2022 Bronchitis 12/02/2022 Chest pain 12/02/2022 Chronic back pain 12/02/2022 Diarrhea 12/02/2022 Epistaxis 12/02/2022 Fever 12/02/2022 Finding of above normal blood pressure 12/02/2022 Hearing loss 12/02/2022 Heartburn 12/02/2022 Intermittent claudication ([facility]) 12/02/2022 Obesity with body mass index 30 or greater 12/02/2022 Prediabetes 12/02/2022 Restless legs syndrome 12/02/2022 Viral upper respiratory tract infection 12/02/2022 Chronic neuropathic pain 11/28/2022 Pain, unspecified 10/25/2022 Ankle pain 08/29/2022 Other mechanical complication of surgically created arteriovenous fistula, initial encounter ([facility]) 08/21/2022 Coagulation defect, unspecified ([facility]) 08/20/2022 Abnormal echocardiography 08/05/2022 Allergy, unspecified, initial encounter 08/01/2022 Anaphylactic shock, unspecified, initial encounter 08/01/2022 ESRD (end stage renal disease) ([facility]) 08/01/2022 Anemia in chronic kidney disease 07/30/2022 Dialysis patient ([facility]) 07/30/2022 Noninfective gastroenteritis and colitis, unspecified 07/30/2022 Secondary hyperparathyroidism of renal origin ([facility]) 07/30/2022 Chronic systolic heart failure ([facility]) 06/03/2022 Neuropathy 03/26/2022 Heart failure ([facility] [facility] 03/26/2022 Disease due to severe acute respiratory syndrome coronavirus 2 (SARS-CoV-2) 01/22/2022 Disorder of brain 01/22/2022 Fatigue 01/22/2022 Hyperkalemia 01/22/2022 Stage 3 chronic kidney disease ([facility]) 01/22/2022 Arteriovenous fistula ([facility]HCC) (HCC) 07/25/2021 Stage 5 chronic kidney disease due to hypertension ([facility]) 02/20/2021 BPH with urinary obstruction 04/06/2020 Zach's granulomatosis with renal involvement ([facility]) 10/27/2019 Gastroesophageal reflux disease 10/21/2019 Hypertension 10/21/2019 Morbidly obese ([facility]) 10/21/2019 Iron deficiency anemia, unspecified 10/21/2019 Obstructive sleep apnea syndrome 10/20/2019 Avascular necrosis of bone of hip (CMS/HCC) ([facility]) 07/09/2019 Abdominal hernia 07/09/2019 Polyneuropathy due to other toxic agents ([facility]) 11/17/2017 Diverticulosis of large intestine without diverticulitis 08/22/2017 BPH with obstruction/lower urinary tract symptoms 07/24/2016 Adenomatous colon polyp 01/27/2016 Vitamin D deficiency 11/29/2015 Osteoporosis 10/09/2015 Granulomatosis with polyangiitis ([facility]) 12/30/2014 Compression fracture of L1 lumbar vertebra ([facility]) 12/30/2014 Medical Precautions: No active isolations Proper PPE donned/doffed in accordance with facility standards. Fall Risk: Faustin Fall Risk Score: 60 (High Risk) Precautions/Restrictions: Fall Precautions Bed/chair alarm Family/Caregiver Present: none Overall Cognitive Status: WFL Overall Orientation Status: Oriented to Place, Oriented to Time, and Oriented to Person Vision: Not Assessed Hearing: normal Social/Functional History Patient admitted from home. Lives With: Spouse Type of Home: mobile home Home Layout: Single Level Home Home Access: Stairs to Enter with Rails (# of stairs: 4) Bathroom Shower/Tub: Toilet: Standard Home Equipment: front wheeled walker, rollator, cane, and wheelchair - manual Homemaking Responsibilities: Needs Assist Receives Help From: Significant other Active Stock Clerk: Yes Prior Level of Function Prior Level of ADL Function: Required Assist Prior Level of Mobility: Independent; Device: Cane in the community and electric WC inside the home Prior Level of Transfers: Independent Objective Lower Extremity Assessment AROM: WFL PROM: Not assessed this session Strength: WFL 5/5 knee extension and ankle DF Sensation: Not assessed this session Balance: Balance During Session: Posture: good Sitting - Static: Independent Sitting - Dynamic: SBA Standing - Static: SBA Standing - Dynamic: Mod Assist Bed Mobility: Supine to sit: Mod Assist Scooting: Min Assist Transfers Sit to stand: Min Assist Stand to sit: Min Assist Retro leaning initially in standing with PT assist to prevent fall backwards to bed Ambulation Ambulation 1 Assistive device(s) used: Front wheeled walker Assist level: Contact Guard, Min Assist Distance (ft): 120 ft x 2 Quality of gait: slow hernán, shuffling feet most of the time. Increased assist for turning with the FWW. Pt offered use of a cane that he would use when in the community, pt declined use of a cane d/t unsteadiness. Stairs Stairs 1 Assistive device(s) used: None Assist level: Contact Guard # of steps: 4 Rails: bilateral Additional factors: non-reciprocal going up, non-reciprocal going down Heart Failure on Admission Dyspnea: No Heart failure diagnosis: Yes Outcome Measures AM-PAC How much HELP from another person do you currently need Turning from your back to your side while in a flat bed without using bedrails?: A Little Moving from lying on your back to sitting on the side of a flat bed without using bedrails?: A Lot Moving to and from a bed to a chair (including a wheelchair)?: A Little Standing up from a chair using your arms (wheelchair or bedside chair)?: A Little Walking in a hospital room?: A Little Stair climbing assessed?: No AM-PAC Inpatient Mobility Raw Score (No Stairs) : 14 [facility] Score: Walked 25 ft or more (i.e. walked outside of room) Plan Pt would benefit from skilled acute PT services to address Strengthening, ROM, Gait Training, Balance Training, Self-Care/ADL Training, Functional Mobility Training, Endurance Training, Stair Training, and Positioning. Frequency: 3x/week for 2 weeks Barriers: Impaired balance, Decreased endurance, Stairs at home, and Limited family support Safety/Education Safety Safety Devices in place: call light within reach, left in chair, chair alarm in place, gait belt, patient at risk for falls, and nurse notified Restraints: No Education Education Given To: patient Education Provided: PT Role, PT Goals, Gait Training, Plan of Care, Precautions, and Benefits of Increasing Activity Education Method: Verbal and Demonstration Barriers to Learning: None Education Outcome: Verbalized Understanding Goals Patient Stated Goal: To return to home and get stronger Encounter Problems Encounter Problems (Active) Mobility Patient will ambulate 200 feet with modified independence and least restrictive device in order to improve safety and independence with mobility. Start: 11/28/24 Expected End: 12/12/24 Patient will ascend and descend 4 stairs with least restrictive device and modified independence in order to safely negotiate home. Start: 11/28/24 Expected End: 12/12/24 Transfers Patient will perform bed mobility with independence in order to improve independence and prepare for out of bed mobility. Start: 11/28/24 Expected End: 12/12/24 Patient will complete functional transfer with least restrictive device with modified independence in order to prepare for ambulation. Start: 11/28/24 Expected End: 12/12/24 Therapy Time Individual Co-Treatment Co-Evaluation Time In 0843 Time Out 0904 Minutes 21 Letty Meyer PT Patient's Physical Therapy Plan of Care supervision is transferred to a [facility] Services Physical Therapist. Goals and/or treatment plan was established in collaboration with patient/family/other representatives. [1] Past Medical History: Diagnosis Date Allergic rhinitis BPH (benign prostatic hyperplasia) BPH (benign prostatic hyperplasia) CHF (congestive heart failure) (HCC) Chronic back pain Chronic kidney disease Chronic systolic heart failure (HCC) 06/05/2020 Compression fracture spring 2014 T12 Diabetes mellitus without complication (HCC) 07/24/2016 no diabetes GERD (gastroesophageal reflux disease) [place] (hard of hearing) 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 Hypertension Indwelling Osorio catheter present Obesity ROYAL (obstructive sleep apnea) Osteoarthritis Restless legs syndrome Status post right hip replacement 03/19/2016 Urge incontinence 07/24/2016 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HCC) [2] Past Surgical History: Procedure Laterality Date CATARACT EXTRACTION Bilateral COLONOSCOPY COLONOSCOPY 01/02/2016 Repeat in 3 years, colon polyps, diverticulosis and internal hemorrhoid COLONOSCOPY 08/24/2017 by Joana Moreno, repeat in 5 years, diverticulosis, internal hemorrhoid EYE SURGERY HIP ARTHROPLASTY Right 02/05/2016 right hip HX AV FISTULA CREATION Left 02/20/2021 JOINT REPLACEMENT KNEE ARTHROSCOPY Left 1988 ORTHOPEDIC SURGERY Left 1989 knee- left knee mensicus arthroscopic surgery PROSTATE BIOPSY 01/11/2014 trus bx- negative RENAL BIOPSY 12/2013 TRANSURETHRAL RESECTION OF PROSTATE 04/06/2020 Button TURP. [place] UPPER GASTROINTESTINAL ENDOSCOPY 01/02/2016 gasttitis, duodentits, GERD with esophagitis UPPER GASTROINTESTINAL ENDOSCOPY 08/22/[address] Bernard, no BE , gastritis, duodenitis and esophagus WISDOM TOOTH EXTRACTION [facility] Respiratory Care Department Progress Note Comment or reasoning for refusal: Patient was seen in attempts to fulfill CPAP/BiPAP/AutoPAP order. Patient refused PAP therapy/study at this time. Patient was educated on medical need and reasoning for physician order to ensure patient was making an informed medical decision. All of the patient's questions were answered at this time and patient was informed that if the patient changes their mind regarding wearing PAP to hit their "call light" or inform their nurse to contact Respiratory. A second, consecutive night of refusing PAP therapy/study results in order completion in the EMR. If future CPAP/BiPAP/AutoPAP therapy or study is indicated please place another order in the EMR and the assigned Respiratory Therapist will reattempt to fulfill orders. Reason for refusal: Stated he does not wear one. X2 Thank you for involving Respiratory in the care of this patient, Images from the original note were not included. Nephrology Progress Note Patient: Franklin Burton Room number: T2-207/T2-207 A Date of Admit: 11/25/2024 LOS: 2 days Referring physician: Fawad Ruiz MD Outpatient Armored Car Guard: Tamia Marquez Assessment / Plan Franklin Burton is a 79 y.o. male with a past medical history of ESRD on HD MWF at [facility], GPA, DM type 2, HTN, HFrEF, BPH, GERD, ROYAL, OA, obesity, RLS, neuropathy, who was brought in from OSH due to AMS. Pt had HD and went home, then woke up agitated, feeling nauseated and confused, undergoing neurologic work up. Renal plan: 1-ESRD on HD MWF -Continue HD MWF, next 11/29 -he is on gabapentin, lyrica discontinued -would be careful with hydration, currently on NS @ 50 ml/hr, can discontinue 2-Anemia: -Hgb 11.1, above goal -hold JENNIFER 3-QAMAR: -last Ca was 8.9 and phosphorus 1.6 -not on binders -OK for gentle phos replacement per primary, will rise off HD 4-BP/volume status: -last BP was 114/57 -he is on metoprolol 25 mg bid -TTE EF 50%. pHTN present. IVC not visualized. -will investigate EDW 5-AMS: -neuro following -MRI brain without acute findings, chronic ischemic/atrophic changes -dialysis dysequilibrium syndrome usually seen with large swings in solutes such as with HD initiation or when restating after significant missed time, less likely between routine HD sessions 6-ID: -blood cx NGTD -not on Abs currently -he is on azathioprine for GPA, establishing with Dr. Palma ([facility]) next week Thank you for allowing us to participate in the care of this patient. Please call with any questions. Fawad Robison MD [facility] ([facility]) Office phone: [phone] Office fax: [phone] 11/27/2024 Subjective Patient was seen and examined this am. Per mentation worsened overnight. Given seroquel and precedex gtt. HD with 2L off yesterday, ran without issue. Medications Scheduled Meds:Scheduled Meds[1] Continuous Infusions:Continuous Meds[2] Review of Systems Unable to obtain Vital Signs Vitals: 11/27/24 0900 11/27/24 1000 11/27/24 1100 11/27/24 1200 BP: 118/62 105/56 (!) 109/49 114/57 Pulse: 75 76 69 62 Resp: (!) 29 (!) 27 25 20 Temp: TempSrc: SpO2: 97% 98% 99% 99% Weight: Height: Wt Readings from Last 3 Encounters: 11/25/24 103 kg (228 lb) 08/07/23 103 kg (228 lb) 01/09/23 96.6 kg (213 lb) Admit Wt: Weight: 103 kg (228 lb) Estimated body mass index is 34.68 kg/m as calculated from the following: Height as of this encounter: 1.727 m (5' 7.99"). Weight as of this encounter: 103 kg (228 lb). Physical Exam General: obtunded, NAD HEENT: Sclera clear, EOMI, MMM, Nose/ears grossly normal Neck: Supple, trachea midline, no mass Chest: Normal excusion Heart: RRR, no rub/heave Lungs: Clear bilaterally, unlabored Abd: Soft, (+) BS, non-tender, non distended Ext: No edema Neuro: No tremor/myoclonus Skin: warm and dry, no rash LUE AVF with thrill and bruit present LABS Labs reviewed. Recent Labs 11/25/24 0711/26/24 0420 11/26/24 0647 11/27/24 0315 WBC 6.3 6.5 -- 5.9 HGB 11.3* 11.6* 12.0 11.1* HCT 35.2* 35.8* -- 33.7* MCV 95.9 95.5 -- 93.6 PLT 114* 101* -- 114* Recent Labs 11/25/24 0702 11/26/24 0420 11/27/24 0315 ALT 13 10 9 AST 22 25 27 ALKPHOS 81 81 83 BILITOT 0.6 0.8 1.2* Diagnostic Studies CXR 11/25: No acute cardiopulmonary process. The patient may proceed with MRI in regards to this exam. CT head 11/25: 1. No acute intracranial abnormality. 2. Diffuse cortical volume loss and chronic small vessel ischemic changes. [1] atorvastatin, 40 mg, Oral, Nightly azaTHIOprine, 50 mg, Oral, Lunch clopidogrel, 75 mg, Oral, Daily gabapentin, 200 mg, Oral, Nightly heparin, 5,000 Units, SubCUTAneous, 2 times per day metoprolol tartrate, 25 mg, Oral, BID pantoprazole, 40 mg, Oral, Nightly Or pantoprazole (ProtoNix) 40 mg in sodium chloride (PF) 0.9 % 10 mL injection, 40 mg, IntraVENous, Nightly QUEtiapine, 25 mg, Oral, Nightly senna-docusate sodium, 2 tablet, Oral, Daily sodium chloride 0.9%, 5-40 mL, IntraVENous, q12h tamsulosin, 0.4 mg, Oral, Daily [2] sodium chloride, 50 mL/hr, Last Rate: 50 mL/hr (11/27/24 0211) ICU Progress Note Name: Franklin Burton : 1945(79 y.o.) Date: 11/27/24 Team: MICU Attending: Dr. Ruiz Subjective: Hospital Summary: 79 y/o M with PMHx ESRD on iHD, BPH, T2DM, Obesity, ROYAL, RLS, GPA, HFpEF (EF 50% on 11/25/24), chronic back pain with neuropathy who presented to [facility] as a transfer from outside facility for evaluation of AMS. Pt admitted to the hospitalist service with neurology consult. Plan is for EEG and MRI for further evaluation. However, the patient was notably too agitated for these studies to be completed. ICU consulted for admission for control of agitation. Interval Events: Overnight, patient became delirious and required 12.5 mg of Seroquel and was restarted on precedex. Also, he was complaining of abdominal discomfort so senna and simethicone were given. This morning patient is heavily sedated due to precedex. He is only responding to verbal stimuli and is not following commands. Family updated regarding plan for potential transfer to floor later in the day. Scheduled Meds:Scheduled Meds[1] Continuous Infusions:Continuous Meds[2] Objective: Last Vitals: BP MAP 144/66 (11/27/24 06) 87 (11/27/24599) Arterial BP MAP Temp 36.9 C (98.4 F) (11/27/24 0400) Pulse 80 (11/27/24599) Resp (!) 27 (11/27/24 06) SpO2 96 % (11/27/24599) Weight 103 kg (228 lb) (11/25/24 1336) BMI Body mass index is 34.68 kg/m . I/O: 11/26 699 - 11/27 658 In: 1510.3 [I.V.:1510.3] Out: 225 [Urine:225] Ventilator: Oxygen Delivery: O2 Flow Rate (L/min): 2 L/min Invasive Lines / Tubes / Drains: Peripheral IV 11/25/24 Anterior;Distal;Right;Upper Arm (Active) Number of days: 1 Peripheral IV 11/26/24 Anterior;Distal;Right Forearm (Active) Number of days: 0 Central Line Indication: NA - patient does not have a central line Osorio Indications: Hourly I&Os (Critical Care ONLY) Restraints: NA - patient is not restrained. Wounds: Constitutional: General Appearance [x]WDWN [x]Obese []Cachectic []Thin []Ill Eyes: Inspection of Pupils/Irises Pupils round and react: []Yes []No Sclera: []Icteric []Non-Icteric Inspection of Conjunctiva/Lids Conjunctiva: []Injected []Non-Injected Lids: [x]Intact []Lesion Present ENT/Mouth: External Inspection of ears/nose [] Normal [] Scar/Lesion/Mass Inspection of teeth/lips/gums Dentition: [][place] Teeth []Dentures Lips/Gums: []Intact []Lesion Present Mucosa: [][place] []Moist []Dry Neck: External Appearance Overall Appearance: []Normal []Lesion/Mass/Crepitus Present Trachea midline: []Yes []No Thyroid []Normal []Enlarged []Tender []Mass []Absent Respiratory: Respiratory effort []Labored [x]Non-Labored [] Mechanically-Ventilated Auscultation [x]Clear []Crackles []Wheezes [][place] Cardiovascular: Auscultation Rate: [x]Regular []Irregular []Tachycardia []Bradycardia Rhythm: [x]Regular []Irregular Murmur: []Present [x]Absent Extremities Peripheral Edema: []Present [x]Absent Varicosities: []Present [x]Absent Gastrointestinal: Abdomen Palpation: [x]Soft []Firm []Tender [x]Non-Tender []Distended [x]Non-distended Mass: []Present []Absent Bowel Sounds: [x]Present []Absent Hernia: []Present []Absent Liver/Spleen: []Hepatosplenomegaly []Organomegaly Absent Musculoskeletal: Inspection of Digits and Nails Cyanosis: []Present [x]Absent Clubbing: []Present [x]Absent Ischemia: []Present [x]Absent Infection: []Present [x]Absent Extremities CROOKS Equally: Except ([]RUE []RLE []LUE []LLE) Strength/Tone: Intact and Normal ([]RUE []RLE []LUE []LLE) Skin: Inspection [x]Normal []Rash []Lesion []Ulcer Palpation [x]Warm []Cool []Dry []Clammy []Nodules []Induration []Skin-tightening Cap-Refill: [x] <3 sec [] >3 seconds (delayed) Neurologic: GCS EYE: 2 - Opens to pain GCS MOTOR: 4 - Withdraws from pain GCS VERBAL: 2 - Incomprehensible sounds Total GCS: 8 [x] Sensation grossly intact Psych: Mental Status Alert: []Yes [x] No Oriented: [x]x0 []X1 []X2 [x]x3 Mood/Affect []Normal []Flat []Agitated []Depressed []Anxious []Calm [x]Sedated []NAD [facility] Labs within last 24 hours- BMP: Recent Labs 11/25/24 0711/26/2441911/27/24314 NA 133* 130* 136 K 4.6 5.6* 3.9 CL 101 102 103 CO2 27 24 24 BUN 13 18 16 CREATININE 3.06* 3.67* 2.84* CALCIUM 9.2 9.0 8.9 MG -- 2.0 1.9 PHOS -- 2.7 1.6* LFTs: Recent Labs 11/25/24 0711/26/24 0420 11/27/24 031 AST 22 25 27 ALT 13 10 9 PROT 6.8 6.5 6.3* ALBUMIN 3.7 3.4 3.3* BILITOT 0.6 0.8 1.2* ALKPHOS 81 81 83 Glucose: Recent Labs 11/25/24 0702 11/26/24 0032 11/26/24 0420 11/26/24 0555 11/27/24 0035 11/27/24 0315 GLUCOSE 103 -- 108 -- -- 110 POCGLU -- 111* -- 104* 111* -- Procal: No results for input(s): "PROCAL" in the last 72 hours. CBC: Recent Labs 11/25/24 0702 11/26/24 0420 11/26/24 0647 11/27/24 0315 WBC 6.3 6.5 -- 5.9 HGB 11.3* 11.6* 12.0 11.1* HCT 35.2* 35.8* -- 33.7* PLT 114* 101* -- 114* MCV 95.9 95.5 -- 93.6 RDW 13.2 13.1 -- 13.1 ABGs: Recent Labs 11/26/24 0647 Q2OMEVRB Nasal Cannula (LPM) Lactic Acid: No results for input(s): "LACTATE" in the last 72 hours. INR: No results for input(s): "INR" in the last 72 hours. Cardiac Injury Profile: No results for input(s): "CKTOTAL", "CKMB", "TROPONINI" in the last 72 hours. Labs in Last 3 months: Lab Results Component Value Date TSH 3.739 04/09/2021 VITD25 46 04/19/2019 INR 1.2 03/05/2023 Microbiology- Urine Cx: No results found for: URINECX Blood Cx: Lab Results Component Value Date BLOODCX No growth at 24 hours 11/25/2024 Sputum Cx: No results found for: RESPCULT Gram Stain: No results found for: LABGRAM PNA PCR: No results found for: HUMANMETAPNE COVID19: No results found for: COVID19 Legionella Ag: No results found for: "LEGIONELLAPN" Strep Ag: No results for input(s): "STREPPNEUMO" in the last 72 hours. Imaging- MR brain wo contrast Final Result 1. No acute intracranial findings. 2. Probable chronic ischemic and atrophic changes. Report Dictated on Electronically Signed By: Robin Sandoval MD Electronically Signed Date/Time: 11/27/2024 12:01 AM EDT XR chest 1 view Final Result No acute cardiopulmonary process. The patient may proceed with MRI in regards to this exam. Report Dictated on Electronically Signed By: Carlin Esteban MD Electronically Signed Date/Time: 11/25/2024 7:[address] head wo IV contrast Final Result 1. No acute intracranial abnormality. 2. Diffuse cortical volume loss and chronic small vessel ischemic changes. Report Dictated on Electronically Signed By: Mehreen Vargas MD Electronically Signed Date/Time: 11/25/2024 11:35 AM EDT XR abdomen 1 view Final Result No findings that preclude MR imaging. Report Dictated on Electronically Signed By: Mehreen Vargas MD Electronically Signed Date/Time: 11/25/2024 12:22 PM EDT Assessment and Plan: Principal Problem: Stroke-like symptoms Active Problems: Stroke-like symptom Assessment and Plan: Acute Encephalopathy -Will likely be stable for floor transfer once arouses from sedation. -Avoiding narcotics and benzos. 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 -Ok to stop EEG -Geriatrics consult -Infectious workup including blood cultures and UA. Low suspicion for infection -BUN normal, Ammonia normal ESRD on HD MWF -nephrology consult for HD Chronic anemia -Hgb around baseline of 11 -Continue to monitor Thrombocytopenia HFpEF, HTN Hx ROYAL -Does not normally use PAP overnight Hx RLS -Continue home gabapentin GI Prophylaxis: Pantoprazole IV DVT Prophylaxis: Heparin subcutaneous Disposition: Remain in ICU Status Critical Care Time: Total critical care time caring for this patient with life threatening, unstable organ failure, including direct patient contact, management of life support systems, review of data including imaging and labs, discussions with other team members and physicians, excluding procedures. [1] atorvastatin, 40 mg, Oral, Nightly azaTHIOprine, 50 mg, Oral, Lunch clopidogrel, 75 mg, Oral, Daily gabapentin, 200 mg, Oral, Nightly heparin, 5,000 Units, SubCUTAneous, 2 times per day metoprolol tartrate, 25 mg, Oral, BID pantoprazole, 40 mg, Oral, Nightly Or pantoprazole (ProtoNix) 40 mg in sodium chloride (PF) 0.9 % 10 mL injection, 40 mg, IntraVENous, Nightly QUEtiapine, 25 mg, Oral, Nightly senna-docusate sodium, 2 tablet, Oral, Daily sodium chloride 0.9%, 5-40 mL, IntraVENous, q12h sodium phosphate in D5, 10 mmol, IntraVENous, Once tamsulosin, 0.4 mg, Oral, Daily [2] dexmedeTOMIDine in NS, 0.1-1.5 mcg/kg/hr, Last Rate: 1 mcg/kg/hr (11/27/24 0537) sodium chloride, 50 mL/hr, Last Rate: 50 mL/hr (11/27/24 0211) Cosigned by Fawad Ruiz MD at 11/27/2024 4:23 PM EDT Associated attestation - Fawad Ruiz MD - 11/27/2024 4:23 PM EDT I have personally seen the patient and examined along with the resident. I personally obtained the jorge and relevent portions of the history and performed physical exam. I reviewed the chart including MAR, labs, and radiology and agree with the patient's plan of action as discussed with the resident. This note reflects my plan of care as I have edited the note to reflect my findings and my assessment and plan. ROS documentation was reviewed and negative unless otherwise stated in HPI. Chief Complaint: Acute Metabolic Encephalopathy Additional pertinent interval history, ROS, and physical exam findings: Patient seen and examined. Asleep on precedex. Non-labored breathing. MRI without acute intracranial findings. Assessment and Plan: Acute Encephalopathy - unclear etiology ESRD on HD MWF Chronic anemia Thrombocytopenia Back pain with neuropathy DMII without hyperglycemia Hx ROYAL Hx RLS HFpEF - Avoid benzodiazepines given concern for worsening delirium - Stop precedex. Can utilize haldol/seroquel for agitation. - Nephrology following for HD - NeuroCC consulted - no need for LP. - NPO pending improvement. - speech eval - PT/OT Code Status: DNR-CCA, ok for intubation Disposition: Transfer to [facility] Time spent preparing to see the patient, obtaining/reviewing separately obtained history, completing an appropriate medical examination of the patient, ordering medications/tests/procedures, documenting clinical information on the EMR, and/or coordinating care is a subsequent visit: 35 minutes (Level II). Fawad Ruiz MD Pulmonary and Critical Care Medicine Attending Pager #[phone] Family Communication Spoke with and daughter in the room. Updated them on neurology's thoughts that this is dialysis disequilibrium syndrome and attempted to explain what this is. Informed that we are stopping the EEG due to no seizure activity and we will call and update with MRI brain results. Nutrition Assessment Type and Reason for Visit: Initial Nutrition Recommendations/Plan: Continue with pureed diet. Ordered Magic Cup on lunch and dinner via MNT protocol. Monitor nutritional status. Malnutrition Assessment: Malnutrition Status: Insufficient data Context: Acute Illness Nutrition Assessment: Pt is a 79-year-old male with PMH significant for ESRD on HD, BPH, DMII, obesity, ROYAL, RLS, HFpEF 50% who presented from outside facility with altered mental status. Admitted for neurology evaluation and further work up however patient persistently agitated prohibiting further work up. CT head demonstrated chronic small vessel changes. Metabolic encephalopathy work up including ammonia, troponin, and B12 were normal. Neurology requesting MRI brain, cEEG monitoring however patient unable to cooperate and agitated prohibiting evaluation. Per reports patient treated with ativan however had not received any anti-psychotics while on the floor. ICU consulted for management of agitation. Pt calm this a.m. [employer] evaluated today and recommends a pureed solids and Thin liquids and meds crushed in puree diet; pt is on same. Multiple staff in room, unable to interview pt. Estimated Daily Nutrient Needs: Energy Requirements Based On: Kcal/kg Weight Used for Energy Requirements: [place] Weight for Energy Calculation (kg): 70 kg Total Energy Requirements (kcals/day): 25-30 kcals/kg = 0379-5918 kcals/day Weight Used for Protein Requirements: [place] Weight in Kg Used for Protein Requirements: 70 kg Estimated Total Protein (g/day): 1.1-1.3g protein/kg IBW = 77-91g protein/day Estimated Daily Total Fluid (ml/day): 1750 mls Nutrition Related Findings: Net IO Since Admission: -85.23 mL [11/26/24 1531] Lives with: Spouse/significant other, Children, Orientation Level: Oriented to place, Oriented to time, Oriented to person, Cognition: Follows commands, Best Verbal Response: Oriented, Patient Behaviors/Mood: Calm, Cooperative Teeth: Dentures upper Feeding: Dependent Room Service Room Service: Assist Shawn Scale Score: 15. Gastrointestinal (WDL): Within Defined Limits Edema: Generalized Edema: Non-pitting, RUE Edema: None, LUE Edema: None, RLE Edema: Non-pitting, LLE Edema: Non-pitting Oxygen Therapy: None (Room air), O2 Delivery Method: Nasal cannula, O2 Flow Rate (L/min): 2 L/min Meds reviewed: Scheduled: Scheduled Meds[1] Continuous: Continuous Meds[2] Current Nutrition Therapies: Adult diet Dysphagia - Pureed Current Oral Intake Average Meal Intake: Unable to assess Average Supplements Intake: None Ordered Anthropometric Measures: Height: 172.7 cm (5' 7.99") Current Body Weight: 103 kg (227 lb 1.2 oz) [place] Body Weight (lbs) (Calculated): 154 lbs [place] Body Weight (Kg) (Calculated): 70 kg % [place] Body Weight (Calculated): 147.5 % BMI (kg/m2) (Calculated): 34.5 BMI Categories: Obese Class 1 (BMI 30.0-34.9) Wt Readings from Last 10 Encounters: 11/25/24 103 kg (228 lb) 08/07/23 103 kg (228 lb) 01/09/23 96.6 kg (213 lb) 12/31/22 97.1 kg (214 lb) 12/24/22 97.1 kg (214 lb) 12/16/22 95.3 kg (210 lb) 11/28/21 92.3 kg (203 lb 6.4 oz) 07/25/21 96.6 kg (213 lb) 05/16/21 101 kg (222 lb) 05/16/21 101 kg (222 lb) LABS: Recent Labs 11/25/24 0702 11/26/24 042 NA 133* 130* K 4.6 5.6* CL 101 102 CO2 27 24 BUN 13 18 CREATININE 3.06* 3.67* GLUCOSE 103 108 CALCIUM 9.2 9.0 MG -- 2.0 PHOS -- 2.7 Cr - elevated, BUN is low for pt on HD, low Na+ Recent Labs 11/25/24 0711/26/24419 AST 22 25 ALT 13 10 BILITOT 0.6 0.8 ALKPHOS 81 81 TRIG 104 -- Nutrition Diagnosis: Swallowing difficulty related to swallowing difficulty as evidenced by swallow study results Nutrition Interventions: Nutrition Education/Counseling: No recommendation at this time Coordination of Nutrition Care: Continue to monitor while inpatient Goals: Goals: PO intake 50% or greater, by next RD assessment Nutrition Monitoring and Evaluation: Food/Nutrient Intake Outcomes: Food and Nutrient Intake, Supplement Intake Physical Signs/Symptoms Outcomes: Biochemical Data, GI Status, Weight, Skin, Nutrition Focused Physical Findings, Hemodynamic Status, Fluid Status or Edema Discharge Planning: Too soon to determine Yana Pulido RD,LD,CNSC Contact: *[phone] or Epic Chat [1] atorvastatin, 40 mg, Oral, Nightly azaTHIOprine, 50 mg, Oral, Lunch clopidogrel, 75 mg, Oral, Daily gabapentin, 200 mg, Oral, Nightly heparin, 5,000 Units, SubCUTAneous, 2 times per day metoprolol tartrate, 25 mg, Oral, BID pantoprazole, 40 mg, Oral, Nightly Or pantoprazole (ProtoNix) 40 mg in sodium chloride (PF) 0.9 % 10 mL injection, 40 mg, IntraVENous, Nightly sodium chloride 0.9%, 5-40 mL, IntraVENous, q12h tamsulosin, 0.4 mg, Oral, Daily [2] dexmedeTOMIDine in NS, 0.1-1.5 mcg/kg/hr, Last Rate: Stopped (11/26/24437) sodium chloride, 50 mL/hr, Last Rate: 50 mL/hr (11/25/24701) [facility] Respiratory Care Department Progress Note Patient was seen in attempts to fulfill CPAP/BiPAP/AutoPAP order. Patient refused PAP therapy/study at this time. Patient was educated on medical need and reasoning for physician order to ensure patient was making an informed medical decision. All of the patient's questions were answered at this time and patient was informed that if the patient changes their mind regarding wearing PAP to hit their "call light" or inform their nurse to contact Respiratory. A second, consecutive night of refusing PAP therapy/study results in order completion in the EMR. If future CPAP/BiPAP/AutoPAP therapy or study is indicated please place another order in the EMR and the assigned Respiratory Therapist will reattempt to fulfill orders. Reason for refusal: Pt states he hasn't worn PAP in yrs & doesn't want to start now Thank you for involving Respiratory in the care of this patient, .3 General Neurology Follow-up Date of Service: 11/26/2024 Chief complaint: Encephalopathy Subjective: Much improved in mentation today, in the ICU, off the Precedex drip Medications: Scheduled Meds:Scheduled Meds[1] Continuous Infusions:Continuous Meds[2] PRN Meds:PRN Meds[3] Allergies[4] Objective: Exam: BP 143/79 Pulse 90 Temp 36.6 C (97.9 F) Resp 21 Ht 5' 7.99" (1.727 m) Wt 228 lb (103 kg) SpO2 100% BMI 34.68 kg/m GENERAL APPEARANCE: Not in distress. HEENT: Normocephalic and atraumatic; PERRL, neck supple. Oropharynx unremarkable. NEURO: MENTAL STATUS: Patient awake but lethargic, he is oriented to self, place, month and the year which is much improved from yesterday. Speech is fluent, with no aphasia or dysarthria CRANIAL NERVES: CN II: Visual field unremarkable CN III, IV, : Pupils equal, round and reactive to light and accommodation; extra ocular movements full and intact. CN V: Facial sensation normal. CN VII: No facial asymmetry. CN IX, X: Palate elevates symmetrically. CN XII: Tongue protrusion midline. MOTOR: Normal bulk. Tone normal and symmetrical throughout. Strength 5/5 in bilateral uppers, 4/5 in bilateral lowers Bicep Tricep Delt Grasp IP Q H DF PF EHL Left Right SENSATION: Sensation grossly intact to fine touch, COORDINATION: [id number] normal for age and symmetric. Data: LABS: Recent Results (from the past 24 hours) Ammonia Collection Time: 11/25/24 12:58 PM Result Value Ref Range AMMONIA 20 18 - 72 umol/L Blood culture Site #1 - Suspected Infection Collection Time: 11/25/24 12:58 PM Specimen: Blood, Venous Result Value Ref Range Blood Culture Blood culture incubation started Transthoracic echocardiogram (TTE) complete with contrast, bubble, strain, and 3D PRN Collection Time: 11/25/24 2:35 PM Result Value Ref Range IVSd 1.0 0.6 - 1.0 cm LVIDd 4.4 4.2 - 5.9 cm LVIDs 3.2 cm LVOT Diameter 2.0 cm LVPWd 0.9 0.6 - 1.0 cm EF BP 50 (A) 55 - 100 % LV Ejection Fraction A2C 44 % LV Ejection Fraction A4C 58 % LV EDV A2C 107 mL LV EDV A4C 156 mL LV EDV BP 129 67 - 155 mL LV ESV A2C 60 mL LV ESV A4C 65 mL LV ESV BP 65 (A) 22 - 58 mL LVOT Cardiac Output 10.1 liter/minute LVOT Peak Gradient 10 mmHg LVOT Mean Gradient 4 mmHg LVOT SV 94.8 ml LVOT Peak Velocity 1.6 m/s LVOT VTI 30.2 cm RV Free Wall Peak S' 22 cm/s LA Diameter 4.8 cm LA Volume A/L 55 mL LA Volume 2C 61 (A) 18 - 58 mL LA Volume 4C 42 18 - 58 mL LA Volume BP 52 18 - 58 mL RA Area 4C 35.5 mL AV Area by Peak Velocity 2.8 cm2 AV Area by VTI 2.7 cm2 AV Peak Gradient 14 mmHg AV Mean Gradient 7 mmHg AV Peak Velocity 1.9 m/s AV Mean Velocity 1.2 m/s AV VTI 36.8 cm LV E' Lateral Velocity 12 cm/s LV E' Septal Velocity 11 cm/s TAPSE 1.9 >=1.7 cm TR Peak Gradient 54 mmHg TR Max Velocity 3.68 m/s Ascending Aorta 3.6 cm Fractional Shortening 2D 27 28 - 44 % LV ESV Index BP 30 mL/m2 LV EDV Index BP 60 mL/m2 LV ESV Index A4C 30 mL/m2 LV EDV Index A4C 72 mL/m2 LV ESV Index A2C 28 mL/m2 LV EDV Index A2C 50 mL/m2 LVIDd Index 2.04 cm/m2 LVIDs Index 1.48 cm/m2 LV RWT Ratio 0.41 LV Mass 2D 137.8 88 - 224 g LV Mass 2D Index 63.8 49 - 115 g/m2 LA Volume Index BP 24 16 - 34 ml/m2 LA Volume Index A/L 25 16 - 34 mL/m2 LVOT Stroke Volume Index 43.9 mL/m2 LVOT Area 3.1 cm2 LA Volume Index 2C 28 16 - 34 mL/m2 LA Volume Index 4C 19 16 - 34 mL/m2 LA Size Index 2.22 cm/m2 Ascending Aorta Index 1.67 cm/m2 AV Velocity Ratio 0.84 LVOT:AV VTI Index 0.82 MELANIE/BSA VTI 1.3 cm2/m2 MELANIE/BSA Peak Velocity 1.3 cm2/m2 Aortic Sinus Valsalva 3.2 cm Aortic Sinus Valsalva Index 1.48 cm/m2 POCT glucose meter Collection Time: 11/26/24 12:32 AM Result Value Ref Range Glucose 111 (H) 70 - 100 mg/dL Troponin, Serial, Third Test Collection Time: 11/26/24 4:20 AM Result Value Ref Range 4h Troponin HS (Serial 3rd Troponin) 16 <=35 ng/L Comprehensive metabolic panel Collection Time: 11/26/24 4:20 AM Result Value Ref Range SODIUM 130 (L) 136 - 145 mmol/L POTASSIUM 5.6 (H) 3.5 - 5.1 mmol/L CHLORIDE 102 98 - 107 mmol/L CARBON DIOXIDE 24 23 - 31 mmol/L ANION GAP 4 3 - 13 mmol/L UREA NITROGEN 18 9 - 23 mg/dL CREATININE 3.67 (H) 0.72 - 1.25 mg/dL GLUCOSE 108 82 - 115 mg/dL CALCIUM 9.0 8.8 - 10.0 mg/dL AST (SGOT) 25 <34 U/L ALT 10 <40 U/L ALKALINE PHOSPHATASE 81 40 - 150 U/L ALBUMIN 3.4 3.4 - 4.8 g/dL BILIRUBIN, TOTAL 0.8 <1.2 mg/dL TOTAL PROTEIN 6.5 6.4 - 8.3 g/dL eGFR 16.2 (L) >60.0 mL/min/1.73m*2 CBC Collection Time: 11/26/24 4:20 AM Result Value Ref Range Auto WBC 6.5 3.6 - 10.7 10*3/uL RBC 3.75 (L) 4.40 - 5.90 10*6/uL Hemoglobin 11.6 (L) 13.0 - 18.0 g/dL Hematocrit 35.8 (L) 40.0 - 52.0 % MCV 95.5 77.0 - 99.0 fL MCH 30.9 26.0 - 34.0 pg MCHC 32.4 30.5 - 36.0 % RDW 13.1 11.5 - 15.0 % Platelets 101 (L) 140 - 440 10*3/uL MPV 9.5 9.0 - 12.7 fL Magnesium Collection Time: 11/26/24 4:20 AM Result Value Ref Range MAGNESIUM 2.0 1.6 - 2.6 mg/dL Phosphorus Collection Time: 11/26/24 4:20 AM Result Value Ref Range PHOSPHORUS 2.7 2.3 - 4.7 mg/dL POCT glucose meter Collection Time: 11/26/24 5:55 AM Result Value Ref Range Glucose 104 (H) 70 - 100 mg/dL Blood gas, venous Collection Time: 11/26/24 6:47 AM Result Value Ref Range pH, Venous 7.344 7.330 - 7.430 pCO2, Venous 46.2 40.0 - 55.0 mm Hg pO2, Venous 58.4 mm Hg HCO3, Venous 24.6 23.0 - 27.0 mmol/L O2 Sat, Venous 87.5 % Base Excess, Venous -1.3 -3.0 - 3.0 mmol/L Hgb, blood gas 12.0 Screen only g/dl TCO2, Venous 26.0 24.0 - 28.0 mmol/L Source Of Oxygen Nasal Cannula (LPM) Amount Of Oxygen RADIOLOGY: POCT glucose meter Result Date: 11/26/2024 [facility], [address] [place] [address] CLIA ID: [id number] POCT glucose meter Result Date: 11/26/2024 Performed by: [facility], [address] [place] [address] CLIA ID: [id number] XR chest 1 view Result Date: 11/25/2024 Patient Name: FRANKLIN BURTON : 1945 Exam Date/Time: 11/25/2024 16:04 Procedure: XR CHEST 1 VIEW Ordering Provider: WEINBERG LATHA Reason For Exam: for mri CHEST X-RAY AP CLINICAL INDICATION: MRI clearance AP radiograph of the chest was obtained. COMPARISON: April 25, 2020 FINDINGS: The cardiac silhouette is within normal limits. No focal consolidation or opacification is seen within the lungs. No pleural effusion or pneumothorax is identified. Degenerative changes of the thoracic spine are noted. No acute cardiopulmonary process. The patient may proceed with MRI in regards to this exam. Report Dictated on Electronically Signed By: Carlin Esteban MD Electronically Signed Date/Time: 11/25/2024 7:40 PM EDT Transthoracic echocardiogram (TTE) complete with contrast, bubble, strain, and 3D PRN Result Date: 11/25/2024 Technically difficult study. Left Ventricle: Left ventricle size is normal. Normal wall thickness. Low normal left ventricular systolic function. EF by 2D Simpsons Biplane is 50%. Normal wall motion. Right Ventricle: Not well visualized. Normal systolic function. Tricuspid Valve: Unable to accurately assess RVSP due to not being able to assess RA pressure. RVSP is at least 57 mmHg. Pulmonary Arteries: Pulmonary artery was not well visualized. Pulmonary hypertension present. Aorta: Normal sized sinuses of Valsalva. Mildly dilated ascending aorta. Ao ascending diameter is 3.6 cm. XR abdomen 1 view Result Date: 11/25/2024 Patient Name: FRANKLIN BURTON : 1945 Exam Date/Time: 11/25/2024 10:40 Procedure: XR ABDOMEN 1 VIEW Ordering Provider: WEINBERG LATHA Reason For Exam: MRI clearance EXAM: XR Abdomen, 1 View CLINICAL INDICATION: MRI clearance TECHNIQUE: Frontal supine view of the abdomen/pelvis. COMPARISON: Pelvic radiograph from 02/03/2017 FINDINGS: GASTROINTESTINAL TRACT: Nonobstructive bowel gas pattern. BONES/JOINTS: Right hip arthroplasty. Mild left hip joint DJD. Degenerative change of the lower lumbar spine. Bilateral sacroiliac joint DJD. No acute fracture. No findings that preclude MR imaging. Report Dictated on Electronically Signed By: Mehreen Vargas MD Electronically Signed Date/Time: 11/25/2024 12:[address] head wo IV contrast Result Date: 11/25/2024 Patient Name: FRANKLIN BURTON : 1945 Exam Date/Time: 11/25/2024 10:53 Procedure: CT HEAD WO IV CONTRAST Ordering Provider: HEBERT HARINOOR Reason For Exam: Neuro deficit, acute, stroke suspected; Seizure, new-onset, no history of trauma EXAM: CT Head Without Intravenous Contrast CLINICAL INDICATION: Neuro deficit, acute, stroke suspected; Seizure, new-onset, no history of trauma TECHNIQUE: Axial computed tomography images of the head/brain without intravenous contrast. This CT exam was performed using one or more of the following dose reduction techniques: automated exposure control, adjustment of the mA and/or kV according to patient size, and/or use of iterative reconstruction technique. COMPARISON: CT sinus study from 12/31/2013. FINDINGS: BRAIN AND EXTRA-AXIAL SPACES: Moderate diffuse cortical volume loss. Chronic small vessel ischemic changes in the bilateral periventricular white matter. No acute intracranial hemorrhage. No midline shift. BONES/JOINTS: Unremarkable. No acute fracture. SOFT TISSUES: Unremarkable. SINUSES: Mild mucosal thickening in the right maxillary sinus. MASTOID AIR CELLS: Unremarkable as visualized. No mastoid effusion. 1. No acute intracranial abnormality. 2. Diffuse cortical volume loss and chronic small vessel ischemic changes. Report Dictated on Electronically Signed By: Mehreen Vargas MD Electronically Signed Date/Time: 11/25/2024 11:35 AM EDT EEG Result Date: 11/25/2024 Loree Jamison 11/25/2024 8:39 AM I attempted to complete routine EEG, pt thrashing around in bed, family currently in room and does not feel patient will tolerate testing at this time. 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 The history was obtained by talking to the patient's son and who are at bedside. This is the fourth episode of this happening. Per the son, every time he has this episode, it is worse than the last 1. Between these episodes, he is usually at his baseline. There is also some concern of very slow onset of some memory issues for some time now. Per the son, this always happens after his dialysis and he usually gets better within 48 hours. 11/24 the patient was in his usual state of health, no fevers, recent sicknesses and drove himself to the dialysis. Followed by this, he came home and laid down to rest. Soon after, started yelling his 's name and he was noticed that he was significantly confused and his speech was not clear. He was taken to outside hospital where he had a CT scan of the head and CT angiogram of the head and neck. He was offered tenecteplase but the family refused given similar episodes in the past. He was then transferred to [facility]. At [facility] on arrival, blood pressure 154/87, blood work showed sodium 133, creatinine 3.06, LDL 86, A1c 5.8. Yesterday, the patient was stuporous but his exam has improved a lot, per the family, he is very close to his baseline. This essentially rules out an infectious pathology Etiology of the symptoms likely dialysis disequilibrium syndrome Can be taken off the continuous EEG today and transfer out of the ICU MRI brain for completion If EEG report does not show any seizures and MRI brain is unremarkable, no further workup from a neurological standpoint I personally spent [] 25 [x]38 minutes in time for this patient. During that time I performed a face to face diagnostic evaluation of this patient reviewing labs, imaging studies and the electronic medical record; as well as counseling/coordinating care and provided discussion regarding diagnostic impressions and the plan of care with the consulting team Nuha Hebert MD [1] atorvastatin, 40 mg, Oral, Nightly azaTHIOprine, 50 mg, Oral, Lunch clopidogrel, 75 mg, Oral, Daily gabapentin, 200 mg, Oral, Nightly heparin, 5,000 Units, SubCUTAneous, 2 times per day metoprolol tartrate, 25 mg, Oral, BID pantoprazole, 40 mg, Oral, Nightly Or pantoprazole (ProtoNix) 40 mg in sodium chloride (PF) 0.9 % 10 mL injection, 40 mg, IntraVENous, Nightly sodium chloride 0.9%, 5-40 mL, IntraVENous, q12h tamsulosin, 0.4 mg, Oral, Daily [2] dexmedeTOMIDine in NS, 0.1-1.5 mcg/kg/hr, Last Rate: Stopped (11/26/24 0438) sodium chloride, 50 mL/hr, Last Rate: 50 mL/hr (11/25/24 0702) [3] PRN medications: acetaminophen OR acetaminophen, bisacodyl, dextrose, dextrose, glucagon (rDNA), glucose, labetalol, naloxone, ondansetron ODT OR ondansetron, polyethylene glycol (PEG) 3350, sodium chloride, sodium chloride 0.9% [4] Allergies Allergen Reactions Aspirin Other Cannot have due to kidney disease Other reaction(s): cannot take d/t Zach's Vasculitis Kidney issues Other Other reaction(s): Other: See Comments Sneezing, itchy and watery eyes Images from the original note were not included. PHYSICAL THERAPY [facility] Name/MRN: Franklin Burton ([id number]) Date: 11/26/2024 Attempt note Pt on iHD. Will re-attempt as able. Andrés Calhoun PT Images from the original note were not included. Nephrology Progress Note Patient: Franklin Burton Room number: T2-207/T2-207 A Date of Admit: 11/25/2024 LOS: 1 days Referring physician: Fawad Ruiz MD Outpatient Armored Car Guard: Tamia Marquez Assessment / Plan Franklin Burton is a 79 y.o. male with a past medical history of ESRD on HD MWF at [facility], GPA, DM type 2, HTN, HFrEF, BPH, GERD, ROYAL, OA, obesity, RLS, neuropathy, who was brought in from OSH due to AMS. Pt had HD and went home, then woke up agitated, feeling nauseated and confused, undergoing neurologic work up. Renal plan: 1-ESRD on HD MWF -will plan for next HD today -he is on gabapentin, lyrica discontinued -would be careful with hydration, currently on NS @ 50 ml/hr, can discontinue 2-Anemia: -Hgb 11.6, above goal -hold JENNIFER 3-QAMAR: -last Ca was 9 and phosphorus 2.7 -not on binders 4-BP/volume status: -last BP was 150/84 -he is on metoprolol 25 mg bid -TTE EF 50%. pHTN present. IVC not visualized. -will investigate EDW -HD today with 2 L UF goal 5-AMS: -neuro following -MRI planned 6-ID: -blood cx NGTD -not on Abs currently -he is on azathioprine Thank you for allowing us to participate in the care of this patient. Please call with any questions. Dr. Robison covering this weekend. Aleyda Martinez MD [facility] ([facility]) Office phone: [phone] Office fax: [phone] 11/26/2024 Subjective Patient was seen and examined this am. Family at bedside. He was awake and alert today, interactive, answering questions. Denies any nausea, vomiting, SOB or abdominal pain. Doesn't remember how he ended up in the hospital. Medications Scheduled Meds:Scheduled Meds[1] Continuous Infusions:Continuous Meds[2] Review of Systems Unable to obtain Vital Signs Vitals: 11/26/24 0900 11/26/24 1000 11/26/24 1109 11/26/24 1115 BP: 146/84 148/82 156/78 150/84 Pulse: 72 74 75 81 Resp: Temp: 36.6 C (97.8 F) TempSrc: Temporal SpO2: 100% 100% 100% 100% Weight: Height: Wt Readings from Last 3 Encounters: 11/25/24 103 kg (228 lb) 08/07/23 103 kg (228 lb) 01/09/23 96.6 kg (213 lb) Admit Wt: Weight: 103 kg (228 lb) Estimated body mass index is 34.67 kg/m as calculated from the following: Height as of this encounter: 1.727 m (5' 8"). Weight as of this encounter: 103 kg (228 lb). Physical Exam General: awake and alert, answering questions, knows where he is HEENT: Sclera clear, EOMI, MMM, Nose/ears/hearing grossly normal Neck: Supple, trachea midline, no mass Chest: Normal excusion Heart: RRR, no rub/heave Lungs: Clear bilaterally, unlabored Abd: Soft, (+) BS, non-tender, non distended Ext: No edema Neuro: No tremor/myoclonus Skin: warm and dry, no rash LUE AVF with thrill and bruit present LABS Labs reviewed. Recent Labs 11/25/24 0702 11/26/24 0420 11/26/24 0647 WBC 6.3 6.5 -- HGB 11.3* 11.6* 12.0 HCT 35.2* 35.8* -- MCV 95.9 95.5 -- PLT 114* 101* -- Recent Labs 11/25/24 0702 11/26/24 0420 ALT 13 10 AST 22 25 ALKPHOS 81 81 BILITOT 0.6 0.8 Diagnostic Studies CXR 11/25: No acute cardiopulmonary process. The patient may proceed with MRI in regards to this exam. CT head 11/25: 1. No acute intracranial abnormality. 2. Diffuse cortical volume loss and chronic small vessel ischemic changes. [1] atorvastatin, 40 mg, Oral, Nightly azaTHIOprine, 50 mg, Oral, Lunch clopidogrel, 75 mg, Oral, Daily gabapentin, 200 mg, Oral, Nightly heparin, 5,000 Units, SubCUTAneous, 2 times per day metoprolol tartrate, 25 mg, Oral, BID pantoprazole, 40 mg, Oral, Nightly Or pantoprazole (ProtoNix) 40 mg in sodium chloride (PF) 0.9 % 10 mL injection, 40 mg, IntraVENous, Nightly sodium chloride 0.9%, 5-40 mL, IntraVENous, q12h tamsulosin, 0.4 mg, Oral, Daily [2] dexmedeTOMIDine in NS, 0.1-1.5 mcg/kg/hr, Last Rate: Stopped (11/26/24 0438) sodium chloride, 50 mL/hr, Last Rate: 50 mL/hr (11/25/24 07) Images from the original note were not included. Speech-Language Pathology SPEECH LANGUAGE PATHOLOGY [facility] Dysphagia Treatment Note Patient Name: Franklin Burton Evaluation Date: 11/26/2024 Date of : 1945 Admission Date: 11/25/2024 5:45 AM Age: 79 y.o. Room/Bed: T2/T2 A Subjective Patient lethargic and cooperative. Seen upright in bed. Answers some basic questions with clear vocal quality. Follows all basic commands. Visitors at bedside - spouse and family. Spoke with SEBAS Bolivar who cleared pt for treatment. Current Diet: Dietary Orders (From admission, onward) Start Ordered 11/25/24 0620 NPO diet without enteral medications Diet effective now Comments: May complete swallow screen. Question: Medications? Answer: without enteral medications 11/25/24 0624 Aspiration Precautions: - Upright positioning for all PO intake - Slow rate of intake - Small bites/sips - PO when fully alert - 1:1 Assistance - Single sips Oxygen: Oxygen Therapy: None (Room air) Pain: Pt denies any current pain. PPE Worn: gloves Objective & Assessment Dysphagia Treatment # of Activities: 1 Dysphagia Activity 1: Re-assess swallow function Patient is significantly more co-operative this date, requesting water. Patient's upper denture is loose fitting and patient is agreeable to removal so it can soak in spinneret cleaner. Patient with minimal dried secretions in posterior oral cavity. Oral care with suctioning is provided. Patient complains of mouth pain and pain with swallow - posterior oral cavity does appear slightly red with dry tongue. Patient trials ice chips and thin liquids by spoon, cup sip, and small straw sip. Patient's swallow is slightly effortful, suspect secondary to pain. Patient performs 2-3 swallows per bolus with clinically timely swallow onset. There is no change in vocal quality or cough post swallow. Patient further trials puree bolus. His bolus management is slightly prolonged, but functional with full oral clearance. Patient is appropriate to start a conservative diet at this time. Plan & Recommendations Plan: ST to follow to ensure diet tolerance and advance as able. Continue acute [employer] therapy per initial plan of care and established goals. Recommend Pureed solids and Thin liquids and meds crushed in puree and the following precautions: - Upright positioning for all PO intake - Slow rate of intake - Small bites/sips - 1:1 Assistance - PO only when fully alert - Single sips D/C Recommendations: to be determined Education Education Given: swallowing strategies, diet recommendations Given To: patient, spouse, and RN Response: verbalizes understanding Goals Patient Stated Goal: To have more water. Encounter Problems Encounter Problems (Active) Swallowing Patient will tolerate the least restrictive diet consistency to allow for safe consumption of daily meals (Progressing) Start: 11/25/24 Expected End: 12/09/24 Patient will demonstrate safe swallowing Intervention/techniques (Progressing) Start: 11/25/24 Expected End: 12/09/24 Patient will participate in repeat clinical dysphagia evaluation (Completed) Start: 11/25/24 Expected End: 12/09/24 Resolved: 11/26/24 Therapy Time [employer] Individual Minutes Time In: 0848 Time Out: 0903 Minutes: 15 JAIL[facility] ICU Progress Note Name: Franklin Burton : 1945(79 y.o.) Date: 11/26/24 Team: MICU Attending: Dr. Ruiz Subjective: Hospital Summary: 79 y/o M with PMHx ESRD on iHD, BPH, T2DM, Obesity, ROYAL, RLS, GPA, HFpEF (EF 50% on 11/25/24), chronic back pain with neuropathy who presented to [facility] as a transfer from outside facility for evaluation of AMS. Pt admitted to the hospitalist service with neurology consult. Plan is for EEG and MRI for further evaluation. However, the patient was notably too agitated for these studies to be completed. ICU consulted for admission for control of agitation. Interval Events: This morning, we were paged about the patient being somnolent while on precedex. Precedex was turned off and later in the morning patient was following commands and answering simple questions. He denies any chest pain, shortness of breath, and abdominal pain. He is oriented only to person. Later in the afternoon, he became Aox4. Patients son was in the room and says he his mostly independent at baseline. Able to drive and converse normally with occasional incompressible content. Also, reports that this has happened multiple times post dialysis. Scheduled Meds:Scheduled Meds[1] Continuous Infusions:Continuous Meds[2] Objective: Last Vitals: BP MAP 122/67 (11/26/24699) 84 (11/26/24699) Arterial BP MAP Temp 36.2 C (97.1 F) (11/26/24 0400) Pulse 67 (11/26/24699) Resp 24 (11/26/24699) SpO2 100 % (11/26/24699) Weight 103 kg (228 lb) (11/25/24 1336) BMI Body mass index is 34.67 kg/m . I/O: 11/25 699 - 11/26 658 In: 189.8 [I.V.:189.8] Out: 300 [Urine:300] Ventilator: Oxygen Delivery: O2 Flow Rate (L/min): 2 L/min Invasive Lines / Tubes / Drains: Peripheral IV 11/25/24 Anterior;Distal;Right;Upper Arm (Active) Number of days: 1 Peripheral IV 11/26/24 Anterior;Distal;Right Forearm (Active) Number of days: 0 Central Line Indication: NA - patient does not have a central line Osorio Indications: Hourly I&Os (Critical Care ONLY) Restraints: NA - patient is not restrained. Wounds: Constitutional: General Appearance [x]WDWN [x]Obese []Cachectic []Thin []Ill Eyes: Inspection of Pupils/Irises Pupils round and react: [x]Yes []No Sclera: []Icteric [x]Non-Icteric Inspection of Conjunctiva/Lids Conjunctiva: []Injected [x]Non-Injected Lids: [x]Intact []Lesion Present ENT/Mouth: External Inspection of ears/nose [] Normal [] Scar/Lesion/Mass Inspection of teeth/lips/gums Dentition: [][place] Teeth []Dentures Lips/Gums: []Intact []Lesion Present Mucosa: [][place] []Moist []Dry Neck: External Appearance Overall Appearance: []Normal []Lesion/Mass/Crepitus Present Trachea midline: []Yes []No Thyroid []Normal []Enlarged []Tender []Mass []Absent Respiratory: Respiratory effort []Labored [x]Non-Labored [] Mechanically-Ventilated Auscultation [x]Clear []Crackles []Wheezes [][place] Cardiovascular: Auscultation Rate: [x]Regular []Irregular []Tachycardia []Bradycardia Rhythm: [x]Regular []Irregular Murmur: []Present [x]Absent Extremities Peripheral Edema: []Present [x]Absent Varicosities: []Present [x]Absent Gastrointestinal: Abdomen Palpation: []Soft []Firm []Tender []Non-Tender []Distended []Non-distended Mass: []Present []Absent Bowel Sounds: []Present []Absent Hernia: []Present []Absent Liver/Spleen: []Hepatosplenomegaly []Organomegaly Absent Musculoskeletal: Inspection of Digits and Nails Cyanosis: []Present []Absent Clubbing: []Present []Absent Ischemia: []Present []Absent Infection: []Present []Absent Extremities CROOKS Equally: Except ([]RUE []RLE []LUE []LLE) Strength/Tone: Intact and Normal ([]RUE []RLE []LUE []LLE) Skin: Inspection []Normal []Rash []Lesion []Ulcer Palpation []Warm []Cool []Dry []Clammy []Nodules []Induration []Skin-tightening Cap-Refill: [] <3 sec [] >3 seconds (delayed) Neurologic: GCS EYE: 4 - Opens spontaneously GCS MOTOR: 6 - Obeys commands for movement GCS VERBAL: 5 - Oriented to person, place, time Total GCS: 15 [x] Sensation grossly intact Psych: Mental Status Alert: [x]Yes [] No Oriented: []x0 []X1 []X2 [x]x3 Mood/Affect [x]Normal []Flat []Agitated []Depressed []Anxious []Calm []Sedated [x]NAD [facility] Labs within last 24 hours- BMP: Recent Labs 11/25/24 0702 11/26/24 0420 NA 133* 130* K 4.6 5.6* CL 101 102 CO2 27 24 BUN 13 18 CREATININE 3.06* 3.67* CALCIUM 9.2 9.0 MG -- 2.0 PHOS -- 2.7 LFTs: Recent Labs 11/25/24 0702 11/26/24 0420 AST 22 25 ALT 13 10 PROT 6.8 6.5 ALBUMIN 3.7 3.4 BILITOT 0.6 0.8 ALKPHOS 81 81 Glucose: Recent Labs 11/25/24 0702 11/26/24 0032 11/26/24 0420 11/26/24 0555 GLUCOSE 103 -- 108 -- POCGLU -- 111* -- 104* Procal: No results for input(s): "PROCAL" in the last 72 hours. CBC: Recent Labs 11/25/24 0702 11/26/24 0420 11/26/24 0647 WBC 6.3 6.5 -- HGB 11.3* 11.6* 12.0 HCT 35.2* 35.8* -- PLT 114* 101* -- MCV 95.9 95.5 -- RDW 13.2 13.1 -- ABGs: Recent Labs 11/26/24 0647 [id number] Nasal Cannula (LPM) Lactic Acid: No results for input(s): "LACTATE" in the last 72 hours. INR: No results for input(s): "INR" in the last 72 hours. Cardiac Injury Profile: No results for input(s): "CKTOTAL", "CKMB", "TROPONINI" in the last 72 hours. Labs in Last 3 months: Lab Results Component Value Date TSH 3.739 04/09/2021 VITD25 46 04/19/2019 INR 1.2 03/05/2023 Microbiology- Urine Cx: No results found for: URINECX Blood Cx: Lab Results Component Value Date BLOODCX Blood culture incubation started 11/25/2024 Sputum Cx: No results found for: RESPCULT Gram Stain: No results found for: LABGRAM PNA PCR: No results found for: HUMANMETAPNE COVID19: No results found for: COVID19 Legionella Ag: No results found for: "LEGIONELLAPN" Strep Ag: No results for input(s): "STREPPNEUMO" in the last 72 hours. Imaging- XR chest 1 view Final Result No acute cardiopulmonary process. The patient may proceed with MRI in regards to this exam. Report Dictated on Electronically Signed By: Carlin Esteban MD Electronically Signed Date/Time: 11/25/2024 7:[address] head wo IV contrast Final Result 1. No acute intracranial abnormality. 2. Diffuse cortical volume loss and chronic small vessel ischemic changes. Report Dictated on Electronically Signed By: Mehreen Vargas MD Electronically Signed Date/Time: 11/25/2024 11:35 AM EDT XR abdomen 1 view Final Result No findings that preclude MR imaging. Report Dictated on Electronically Signed By: Mehreen Vargas MD Electronically Signed Date/Time: 11/25/2024 12:22 PM EDT MR brain wo contrast (Results Pending) Assessment and Plan: Principal Problem: Stroke-like symptoms Active Problems: Stroke-like symptom Assessment and Plan: Acute Encephalopathy -Avoiding narcotics and benzos. 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 Low suspicion for infection -BUN normal, Ammonia normal ESRD on HD MWF -nephrology consult for HD -K elevated at 5.7 this morning. Underwent dialysis today Chronic anemia -Hgb around baseline of 11 -Continue to monitor Thrombocytopenia HFpEF, HTN Hx ROYAL -Does not normally use PAP overnight Hx RLS -Continue home gabapentin GI Prophylaxis: Pantoprazole IV DVT Prophylaxis: Heparin subcutaneous Disposition: Remain in ICU Status Critical Care Time: Total critical care time caring for this patient with life threatening, unstable organ failure, including direct patient contact, management of life support systems, review of data including imaging and labs, discussions with other team members and physicians, excluding procedures. [1] atorvastatin, 40 mg, Oral, Nightly azaTHIOprine, 50 mg, Oral, Lunch clopidogrel, 75 mg, Oral, Daily gabapentin, 200 mg, Oral, Nightly heparin, 5,000 Units, SubCUTAneous, 2 times per day metoprolol tartrate, 25 mg, Oral, BID sodium chloride 0.9%, 5-40 mL, IntraVENous, q12h tamsulosin, 0.4 mg, Oral, Daily [2] dexmedeTOMIDine in NS, 0.1-1.5 mcg/kg/hr, Last Rate: Stopped (11/26/24 0438) sodium chloride, 50 mL/hr, Last Rate: 50 mL/hr (11/25/24 0702) Cosigned by Fawad Ruiz MD at 11/26/2024 4:42 PM EDT Associated attestation - Fawad Ruiz MD - 11/26/2024 4:42 PM EDT I have personally seen the patient and examined along with the resident. I personally obtained the jorge and relevent portions of the history and performed physical exam. I reviewed the chart including MAR, labs, and radiology and agree with the patient's plan of action as discussed with the resident. This note reflects my plan of care as I have edited the note to reflect my findings and my assessment and plan. ROS documentation was reviewed and negative unless otherwise stated in HPI. Chief Complaint: Acute Metabolic encephalopathy Additional pertinent interval history, ROS, and physical exam findings: Patient seen and examined. Awake, alert, remains on precedex 0.6. On cEEG. Non-labored breathing otherwise in no acute distress. Assessment and Plan: Acute Encephalopathy - unclear etiology ESRD on HD MWF Chronic anemia Thrombocytopenia Back pain with neuropathy DMII without hyperglycemia Hx ROYAL Hx RLS HFpEF - Avoid benzodiazepines given concern for worsening delirium - continue precedex for MRI and cEEG evaluation - will need LP in coming days, follow initial studies. - Nephrology following for HD - NeuroCC consulted - NPO pending improvement. - speech eval - PT/OT Code Status: DNR-CCA, ok for intubation Disposition: Remain in ICU for ongoing care Time spent preparing to see the patient, obtaining/reviewing separately obtained history, completing an appropriate medical examination of the patient, ordering medications/tests/procedures, documenting clinical information on the EMR, and/or coordinating care is a subsequent visit: 35 minutes (Level II). Fawad Ruiz MD Pulmonary and Critical Care Medicine Attending Pager #[phone] I spoke with family at bedside (, adult son, and [id number]) as well as daughter via telephone, all of whom confirm that the patient would want to be DNR-CCA, OK for intubation & ICU transfer. Code status updated. Images from the original note were not included. Speech-Language Pathology SPEECH LANGUAGE PATHOLOGY [facility] Bedside Swallow Evaluation Patient Name: Franklin Burton Evaluation Date: 11/25/2024 Date of : 1945 Admission Date: 11/25/2024 5:45 AM Age: 79 y.o. [facility] IMPRESSION: S/s oropharyngeal dysphagia. No overt clinical s/s pulmonary compromise with PO. Risk factors for aspiration include decreased mentation, previous nausea (none currently), MS changes, ESRD. RECOMMENDATION: Recommend strict NPO with ok for few ice chips per RN for comfort. NON-oral medications. Dysphagia NOMS: Level 2: Individual is not able to swallow safely by mouth for nutrition and hydration, but may take some consistency with consistent maximal cues in a therapy env only. Alternative method of feeding is required. Pt would benefit from skilled acute [employer] services to ensure patient tolerance of the recommended diet, assess for potential diet upgrade, and repeat bedside swallow evaluation. Frequency: 3 days/wk for 2 weeks Barriers: Confusion and decreased mentation Prognosis: fair D/C Recommendations: to be determined Subjective Patient lethargic and cooperative, with increased arousal. Seen upright in bed, after repositioning. Answers few basic questions with hoarse vocal quality. Follows some basic commands. Visitors at bedside - and family. Spoke with SEBAS Campa who cleared pt to be evaluated. Dysphagia History: No history of [employer] services in EMR with retrospective chart review Baseline Diet: Regular diet with thin liquids Current Diet: Dietary Orders (From admission, onward) Start Ordered 11/25/24 0620 NPO diet without enteral medications Diet effective now Comments: May complete swallow screen. Question: Medications? Answer: without enteral medications 11/25/24 0624 Tube Feeding: no Tracheostomy: no Recent Chest Xray/CT of Chest: No results found for this visit on 11/25/24. Oxygen: Oxygen Therapy: None (Room air) Past Medical History: Medical History[1] Past Surgical History: Surgical History[2] Admission Diagnosis: Patient Active Problem List Diagnosis Date Noted Stroke-like symptom 11/25/2024 Stroke-like symptoms 11/25/2024 Allergic rhinitis 08/07/2023 Chronic insomnia 08/07/2023 Chronic maxillary sinusitis 08/07/2023 Nasal obstruction 08/07/2023 Nasal septal perforation 08/07/2023 Sensorineural hearing loss (SNHL), bilateral 08/07/2023 Swelling of upper extremity 08/07/2023 Tinnitus, bilateral 08/07/2023 Tremor 08/07/2023 Malnutrition of mild degree (HCC) 03/09/2023 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 (HCC) 03/01/2023 Peritoneal dialysis catheter in situ (CMS/HCC) (HCC) 03/01/2023 Periumbilical abdominal pain 03/01/2023 Motion sickness 12/24/2022 Arthralgia 12/02/2022 Bronchitis 12/02/2022 Chest pain 12/02/2022 Chronic back pain 12/02/2022 Diarrhea 12/02/2022 Epistaxis 12/02/2022 Fever 12/02/2022 Finding of above normal blood pressure 12/02/2022 Hearing loss 12/02/2022 Heartburn 12/02/2022 Intermittent claudication (HCC) 12/02/2022 Obesity with body mass index 30 or greater 12/02/2022 Prediabetes 12/02/2022 Restless legs syndrome 12/02/2022 Viral upper respiratory tract infection 12/02/2022 Chronic neuropathic pain 11/28/2022 Pain, unspecified 10/25/2022 Ankle pain 08/29/2022 Other mechanical complication of surgically created arteriovenous fistula, initial encounter ([facility]) 08/21/2022 Coagulation defect, unspecified ([facility]) 08/20/2022 Abnormal echocardiography 08/05/2022 Allergy, unspecified, initial encounter 08/01/2022 Anaphylactic shock, unspecified, initial encounter 08/01/2022 ESRD (end stage renal disease) ([facility]) 08/01/2022 Anemia in chronic kidney disease 07/30/2022 Dialysis patient ([facility]) 07/30/2022 Noninfective gastroenteritis and colitis, unspecified 07/30/2022 Secondary hyperparathyroidism of renal origin ([facility]) 07/30/2022 Chronic systolic heart failure ([facility]) 06/03/2022 Neuropathy 03/26/2022 Heart failure ([facility]) 03/26/2022 Disease due to severe acute respiratory syndrome coronavirus 2 (SARS-CoV-2) 01/22/2022 Disorder of brain 01/22/2022 Fatigue 01/22/2022 Hyperkalemia 01/22/2022 Stage 3 chronic kidney disease ([facility]) 01/22/2022 Arteriovenous fistula ([facility]) ([facility]) 07/25/2021 Stage 5 chronic kidney disease due to hypertension ([facility]) 02/20/2021 BPH with urinary obstruction 04/06/2020 Zach's granulomatosis with renal involvement ([facility]) 10/27/2019 Gastroesophageal reflux disease 10/21/2019 Hypertension 10/21/2019 Morbidly obese ([facility]) 10/21/2019 Iron deficiency anemia, unspecified 10/21/2019 Obstructive sleep apnea syndrome 10/20/2019 Avascular necrosis of bone of hip ([facility]) ([facility]) 07/09/2019 Abdominal hernia 07/09/2019 Polyneuropathy due to other toxic agents ([facility]) 11/17/2017 Diverticulosis of large intestine without diverticulitis 08/22/2017 BPH with obstruction/lower urinary tract symptoms 07/24/2016 Adenomatous colon polyp 01/27/2016 Vitamin D deficiency 11/29/2015 Osteoporosis 10/09/2015 Granulomatosis with polyangiitis ([facility]) 12/30/2014 Compression fracture of L1 lumbar vertebra ([facility]) 12/30/2014 History of Present Illness: 79 y.o. male with PMH of granulomatosis with polyangiitis, ESRD on hemodialysis, HTN, neuropathy, and pre-diabetes who presents with the chief Complaint of: altered mental status and confusion following a dialysis session. According to the patient's son, [id number], and , Mr. Burton returned from a routine dialysis session on 11/24 and laid down to rest. Soon after, he began yelling his 's name and was observed having his knees give out to collapse. He did not hit his head but was nauseous, severely confused, and his speech was not clear. At baseline, he speaks fluently with only occasional incomprehensibility of content. He is able to drive himself to and from dialysis appointments but uses a wheelchair and walker to ambulate. The patient was taken to [facility], where the stroke neurologist determined that he was not having any LVO based on CTA and did not need TNK. The team at [facility] felt this may have been related to fluid shift in relation to dialysis and transferred patient to [facility] for further imaging due to non-availability at [facility]. Of note, Mr. Burton has presented with similar symptoms after dialysis at least two other previous times, and the family thinks his symptoms are getting worse each time. His family denies any known fever, chills, seizures, vision/hearing loss, gait abnormalities, or recent illness. They mention some back pain and loss of appetite that have presented over the past couple weeks. Patient Complaint: Lethargic, failed RN swallowing screening. Pain: Pt denies any current pain. PPE Worn: gloves Objective Bedside swallow eval completed. Oral Motor Mechanism Limited. Lingual ROM WFL, unable to visualize palatal elevation. Lip licking was WFL. Dry mucosa, moistened with swab. Oral Hygiene: dried secretions Swallowing Examination PO Trials - ice chips, (teaspoon) - thin liquid, (cup edge) - puree, (teaspoon) Oral Phase Pt with impaired oral receipt of PO trials. Min anterior spillage. Unable to assess mastication.. Oral transit time appears prolonged. Min, No oral residue. Additional Observations: Pt was spitting out ice chips when he did not want any further. Acceptance improved with visualization of spoon bolus. Did not always open his mouth enough. Slower transit of bolus of applesauce (1/2 tsp x2 bites) 3 ice chips (spit out 1). Pharyngeal Phase Hyolaryngeal excursion clinically appears adequate yet delayed at times per palpation. 1-2 swallows palpated per bolus, likely indicative of adequate pharyngeal clearance. No overt clinical s/s airway penetration as evidenced by no cough, no throat clear, and no change in vocal quality. Tolerated very small boli when able to remain on task and alert. Calmer than previous part of day. Education Education Given: diet recommendations Given To: patient and spouse and daughter Response: verbalizes understanding (family) pt not alert enough Goals Patient Stated Goal: Patient unable to participate in goal setting at this time. Talking about hay stacks and a alutiiq. Encounter Problems Encounter Problems (Active) Swallowing Patient will tolerate the least restrictive diet consistency to allow for safe consumption of daily meals Start: 11/25/24 Expected End: 12/09/24 Patient will demonstrate safe swallowing Intervention/techniques Start: 11/25/24 Expected End: 12/09/24 Patient will participate in repeat clinical dysphagia evaluation Start: 11/25/24 Expected End: 12/09/24 Therapy Time [employer] Individual Minutes Time In: 1504 Time Out: 1521 Minutes: 17 Lyndsey Borges, [employer] [1] Past Medical History: Diagnosis Date Allergic rhinitis BPH (benign prostatic hyperplasia) BPH (benign prostatic hyperplasia) CHF (congestive heart failure) ([facility]) Chronic back pain Chronic kidney disease Chronic systolic heart failure (HCC) 06/05/2020 Compression fracture spring 2014 T12 Diabetes mellitus without complication (CMS/HCC) (HCC) 07/24/2016 no diabetes GERD (gastroesophageal reflux disease) [place] (hard of hearing) 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 Hypertension Indwelling Osorio catheter present Obesity ROYAL (obstructive sleep apnea) Osteoarthritis Restless legs syndrome Status post right hip replacement 03/19/2016 Urge incontinence 07/24/2016 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[facility]) [2] Past Surgical History: Procedure Laterality Date CATARACT EXTRACTION Bilateral COLONOSCOPY COLONOSCOPY 01/02/2016 Repeat in 3 years, colon polyps, diverticulosis and internal hemorrhoid COLONOSCOPY 08/24/2017 by Joana Moreno, repeat in 5 years, diverticulosis, internal hemorrhoid EYE SURGERY HIP ARTHROPLASTY Right 02/05/2016 right hip HX AV FISTULA CREATION Left 02/20/2021 JOINT REPLACEMENT KNEE ARTHROSCOPY Left 1988 ORTHOPEDIC SURGERY Left 1989 knee- left knee mensicus arthroscopic surgery PROSTATE BIOPSY 01/11/2014 trus bx- negative RENAL BIOPSY 12/2013 TRANSURETHRAL RESECTION OF PROSTATE 04/06/2020 Button TURP. [place] UPPER GASTROINTESTINAL ENDOSCOPY 01/02/2016 gasttitis, duodentits, GERD with esophagitis UPPER GASTROINTESTINAL ENDOSCOPY 08/22/[address] Bernard, no BE , gastritis, duodenitis and esophagus WISDOM TOOTH EXTRACTION At bedside with family to discuss pt's evolving mental status, agitation, and reports of pain. Pt has chronic muscular back pain with neuropathy for which he is chronically treated with acetaminophen, gabapentin, and pregabalin. Pt is currently NPO and unable to take any of these medications due to his mental status. Given the concern for pt's admitting diagnosis of mental status change and the current wide differentials for etiology of this problem, opiates and benzodiazepines are not a good choice of medications as they may further affect his mentation and alter his course of treatment. I discussed these concerns with the family, who understood the need to allow the patient to wake on his own and our concern for iatrogenically worsening his mental status. I also discussed these concerns with the RN. We decided to try IV acetaminophen for now. We will try a dose of haldol to see if this can facilitate testing to help narrow our diagnosis and therefore treatment plan. EEG and MRI need to be planned accordingly. If this dose of haldol is ineffective, a consult to ICU can be considered so that precedex can be used for sedation without affecting his neuro exam. This plan was discussed in consultation with Dr. Hebert. DENISHA Castillo/WHEEL SETTER Physical Therapy Evaluation and Treatment Order Received. Pt is out of the room at this time. Will continue to follow. documented in this encounter [facility] 11-30-2024 Note OCCUPATIONAL THERAPY [facility] Initial Evaluation Name/MRN: Franklin Burton ([id number]) Evaluation Date: 11/30/2024 Date of : 1945 Admission Date: 11/25/2024 5:45 AM Age: 79 y.o. Room/Bed: W3-332/W3-332 A Discharge Recommendation: IP Rehab Other: Continue to assess Assessment IMPRESSION: Pt presented with Stroke-like symptoms and AMS upon admission. Pt is a poor historian, A&O x 1 (person). Per and other family member, pt requires assist for ADL's at times, but can ambulate w/Mod I short distances w/FWW, but mainly uses w/c. Pt is currently presenting below baseline and is limited by diminished cognition as well as diminished strength, endurance, balance, and safety. Pt is currently Mod A for bed mobility, Min A for STS from EOB w/FWW, and Min A-CGA for functional ambulation to/from door w/FWW. Pt requires more assist with turns and is unsteady. Pt is currently Max-Min A for ADL's. Recommending IPR at discharge as pt is unsafe to return home, pt is motivated, and can tolerate daily therapy. If family decline IPR, then recommend 24 hour assist and home OT. Pt will continue to benefit from acute OT services while admitted to increase functional independence. Admitting Diagnosis: Stroke-like symptoms Performance Deficits /Impairments: Decreased Functional Mobility, Decreased ADL status, Decreased Strength, Decreased Safety Awareness, Decreased Endurance, Decreased Balance, Decreased High Level IADLs, Decreased Cognition, and Decreased Posture Prognosis: Fair Decision Making: Medium Complexity Subjective Pt supine in bed upon OT arrival w/ and other family member present; pt agreeable to OT eval. Rn cleared for therapy. Pt sitting in recliner at end of session with call light within reach, chair alarm on, family present, and RN notified. Pain: Pt sates pain, but does not say where or provide rating. Past Medical History: Medical History[1] Past Surgical History: Surgical History[2] Admission Diagnosis: Patient Active Problem List Diagnosis Date Noted Stroke-like symptom 11/25/2024 Stroke-like symptoms 11/25/2024 Allergic rhinitis 08/07/2023 Chronic insomnia 08/07/2023 Chronic maxillary sinusitis 08/07/2023 Nasal obstruction 08/07/2023 Nasal septal perforation 08/07/2023 Sensorineural hearing loss (SNHL), bilateral 08/07/2023 Swelling of upper extremity 08/07/2023 Tinnitus, bilateral 08/07/2023 Tremor 08/07/2023 Malnutrition of mild degree ([facility]) 03/09/2023 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 ([facility]) 03/01/2023 Peritoneal dialysis catheter in situ ([facility]HCC) ([facility]) 03/01/2023 Periumbilical abdominal pain 03/01/2023 Motion sickness 12/24/2022 Arthralgia 12/02/2022 Bronchitis 12/02/2022 Chest pain 12/02/2022 Chronic back pain 12/02/2022 Diarrhea 12/02/2022 Epistaxis 12/02/2022 Fever 12/02/2022 Finding of above normal blood pressure 12/02/2022 Hearing loss 12/02/2022 Heartburn 12/02/2022 Intermittent claudication ([facility]) 12/02/2022 Obesity with body mass index 30 or greater 12/02/2022 Prediabetes 12/02/2022 Restless legs syndrome 12/02/2022 Viral upper respiratory tract infection 12/02/2022 Chronic neuropathic pain 11/28/2022 Pain, unspecified 10/25/2022 Ankle pain 08/29/2022 Other mechanical complication of surgically created arteriovenous fistula, initial encounter ([facility]) 08/21/2022 Coagulation defect, unspecified ([facility]) 08/20/2022 Abnormal echocardiography 08/05/2022 Allergy, unspecified, initial encounter 08/01/2022 Anaphylactic shock, unspecified, initial encounter 08/01/2022 ESRD (end stage renal disease) ([facility]) 08/01/2022 Anemia in chronic kidney disease 07/30/2022 Dialysis patient ([facility]) 07/30/2022 Noninfective gastroenteritis and colitis, unspecified 07/30/2022 Secondary hyperparathyroidism of renal origin ([facility]) 07/30/2022 Chronic systolic heart failure ([facility]) 06/03/2022 Neuropathy 03/26/2022 Heart failure ([facility]) 03/26/2022 Disease due to severe acute respiratory syndrome coronavirus 2 (SARS-CoV-2) 01/22/2022 Disorder of brain 01/22/2022 Fatigue 01/22/2022 Hyperkalemia 01/22/2022 Stage 3 chronic kidney disease ([facility]) 01/22/2022 Arteriovenous fistula (CMS/HCC) (HCC) 07/25/2021 Stage 5 chronic kidney disease due to hypertension (HCC) 02/20/2021 BPH with urinary obstruction 04/06/2020 Zach's granulomatosis with renal involvement (HCC) 10/27/2019 Gastroesophageal reflux disease 10/21/2019 Hypertension 10/21/2019 Morbidly obese (HCC) 10/21/2019 Iron deficiency anemia, unspecified 10/21/2019 Obstructive sleep apnea syndrome 10/20/2019 Avascular necrosis of bone of hip (CMS/HCC) (HCC) 07/09/2019 Abdominal hernia 07/09/2019 Polyneuropathy due to other toxic agents ([facility]) 11/17/2017 Diverticulosis of large intestine without diverticulitis 08/22/2017 BPH with obstruction/lower urinary tract symptoms 07/24/2016 Adenomatous colon polyp (more content not included)... [facility] 11-30-2024 Note Hospitalist Discharg e Summary Franklin Burton : 1945 Admit date: 11/25/2024 Discharge date: 11/30/2024 Admitting Physician: Flor Jensen MD Primary Care Physician: Matilde Noguera MD Visit Status: IP Code Status: DNR-CCA BRIEF HOSPITAL COURSE: PER PRIOR ICU course per Dr. Dasilva: "79 y/o M with PMHx ESRD on iHD, BPH, T2DM, Obesity, ROYAL, RLS, GPA, HFpEF (EF 50% on 11/25/24), chronic back pain with neuropathy who presented to [facility] as a transfer from outside facility for evaluation of AMS. Pt admitted to the hospitalist service with neurology consult. Plan is for EEG and MRI for further evaluation. However, the patient was notably too agitated for these studies to be completed. ICU consulted for admission for control of agitation. [11/27 events:] Overnight, patient became delirious and required 12.5 mg of Seroquel and was restarted on precedex. Also, he was complaining of abdominal discomfort so senna and simethicone were given. This morning patient is heavily sedated due to precedex. He is only responding to verbal stimuli and is not following commands. Family updated regarding plan for potential transfer to floor later in the day." Pt transferred to [facility] 11/28. Neurocritical care advised against LP. [employer] kayal ordered. EEG performed 11/27, interpreted as Continuous diffuse mild slowing is seen not responsive to stimulation...findings are supportive of a stable mild global encephalopathy non-specific as to etiology." SNF was recommended however patient wanting to go home with family. Geriatrics outpatient as well 11/30 and made recommendations for home-going medications and adjustments. Was discontinued off Lyrica and started on gabapentin. Daughter to continue helping patient with his medication management. New PCP appointment set up, referral sent to [facility] in [place] near [facility]. They are also to follow-up with nephrology and HD center regarding his abnormal parathyroid level and this will be managed by them. Acute, acute on chronic, unstable/uncontrolled chronic problems/discharge diagnoses: Acute encephalopathy suspected from polypharmacy; suspected disequilibrium syndrome per neurology, nephrology does not suspect this is the case Encephalopathy due to taking extra lyrica and gabapentin not taken as prescribed Delirium improved Debility progressive Stable chronic problems affecting care, new non-acute discharge diagnoses: Medical History[1] Procedures: as above Hospital Course: See discharge diagnoses list above and medication adjustments below in med rec.The patient is discharged in improved and stable condition. Consults: IP CONSULT TO CASE MANAGEMENT IP CONSULT TO NEUROLOGY IP CONSULT TO GERIATRICS IP CONSULT TO NEPHROLOGY IP CONSULT TO WOUND PREVENTION IP CONSULT TO HOME CARE NEEDS Discharge Instructions: Diet: Dietary Orders (From admission, onward) Start Ordered 11/29/24 1252 Adult diet Dysphagia - Minced and Moist Diet effective now Comments: Pureed/thin with 1:1 assist Question: Diet type Answer: Dysphagia - Minced and Moist 11/29/24 1251 11/26/24 1536 Supplement:Lunch, Dinner; Vanilla Magic Cup Until discontinued Question Answer Comment Frequency Lunch Frequency Dinner Select supplement: Vanilla Magic Cup 11/26/24 1536 Activity: as tolerated Recommended Outpatient Tests: Disposition: Patient discharged in stable condition to Home with . Greater than 31 minutes spent discharging the patient and coming up with patient discharge plan. Vitals: BP (!) 174/79 (BP Location: Right arm) Pulse 91 Temp 36.7 ?C (98.1 ?F) (Temporal) Resp 20 Ht 5' 7.99" (1.727 m) Wt 228 lb (103 kg) SpO2 94% BMI 34.68 kg/m? Pulse Ox: SpO2 Av.1 % Min: 92 % Max: 98 % Supplemental O2: O2 Flow Rate (L/min): 2 L/min Physical Exam Vitals reviewed. Constitutional: General: He is not in acute distress. Appearance: Normal appearance. He is not ill-appearing or toxic-appearing. Cardiovascular: Rate and Rhythm: Normal rate. Pulmonary: Effort: Pulmonary effort is normal. No respiratory distress. Musculoskeletal: General: No deformity. Right lower leg: No edema. Left lower leg: No edema. Skin: General: Skin is warm. Neurological: Mental Status: He is alert. Psychiatric: Mood and Affect: Mood normal. Behavior: Behavior normal. Thought Content: Thought content normal. LABS: Recent Labs 11/28/2420011/29/248 11/30/24 0545 NA 134* 134* 135* K 4.1 3.8 4.0 CL 105 106 105 CO2 22* 21* 25 BUN 26* 31* 14 CREATININE 3.52* 4.03* 2.91* GLUCOSE 97 94 108 CALCIUM 8.8 8.8 9.5 Recent Labs 11/28/24 02011/29/248 11/30/24 0545 WBC 4.6 4.2 5.2 RBC 3.41* 3.46* 3.89* HGB 10.5* 10.7* 12.0* HCT 31.9* 32.1* 36.0* MCV 93.5 92.8 92.5 MCH 30.8 30.9 30.8 MCHC 32.9 33.3 33.3 RDW 13.1 12.9 13.0 PLT 118* 123* 152 MPV 9.8 10.1 9.5 Discharge Medications: Medication List (more content not included)... [facility] 11-30-2024 Hospital course Narrative Hospitalist Discharge Summary Franklin Burton : 1945 Admit date: 11/25/2024 Discharge date: 11/30/2024 Admitting Physician: Flor Jensen MD Primary Care Physician: Matilde Noguera MD Visit Status: IP Code Status: DNR-CCA BRIEF HOSPITAL COURSE: PER PRIOR ICU course per Dr. Dasilva: "79 y/o M with PMHx ESRD on iHD, BPH, T2DM, Obesity, ROYAL, RLS, GPA, HFpEF (EF 50% on 11/25/24), chronic back pain with neuropathy who presented to [facility] as a transfer from outside facility for evaluation of AMS. Pt admitted to the hospitalist service with neurology consult. Plan is for EEG and MRI for further evaluation. However, the patient was notably too agitated for these studies to be completed. ICU consulted for admission for control of agitation. [11/27 events:] Overnight, patient became delirious and required 12.5 mg of Seroquel and was restarted on precedex. Also, he was complaining of abdominal discomfort so senna and simethicone were given. This morning patient is heavily sedated due to precedex. He is only responding to verbal stimuli and is not following commands. Family updated regarding plan for potential transfer to floor later in the day." Pt transferred to [facility] 11/28. Neurocritical care advised against LP. [employer] eval ordered. EEG performed 11/27, interpreted as Continuous diffuse mild slowing is seen not responsive to stimulation...findings are supportive of a stable mild global encephalopathy non-specific as to etiology." SNF was recommended however patient wanting to go home with family. Geriatrics outpatient as well 11/30 and made recommendations for home-going medications and adjustments. Was discontinued off Lyrica and started on gabapentin. Daughter to continue helping patient with his medication management. New PCP appointment set up, referral sent to [facility] in [place] near [facility]. They are also to follow-up with nephrology and HD center regarding his abnormal parathyroid level and this will be managed by them. Acute, acute on chronic, unstable/uncontrolled chronic problems/discharge diagnoses: Acute encephalopathy suspected from polypharmacy; suspected disequilibrium syndrome per neurology, nephrology does not suspect this is the case Delirium improved Debility progressive Stable chronic problems affecting care, new non-acute discharge diagnoses: Medical History[1] Procedures: as above Hospital Course: See discharge diagnoses list above and medication adjustments below in med rec.The patient is discharged in improved and stable condition. Consults: IP CONSULT TO CASE MANAGEMENT IP CONSULT TO NEUROLOGY IP CONSULT TO GERIATRICS IP CONSULT TO NEPHROLOGY IP CONSULT TO WOUND PREVENTION IP CONSULT TO HOME CARE NEEDS Discharge Instructions: Diet: Dietary Orders (From admission, onward) Start Ordered 11/29/24 1252 Adult diet Dysphagia - Minced and Moist Diet effective now Comments: Pureed/thin with 1:1 assist Question: Diet type Answer: Dysphagia - Minced and Moist 11/29/24 1251 11/26/24 1536 Supplement:Lunch, Dinner; Vanilla Magic Cup Until discontinued Question Answer Comment Frequency Lunch Frequency Dinner Select supplement: Vanilla Magic Cup 11/26/24 1536 Activity: as tolerated Recommended Outpatient Tests: Disposition: Patient discharged in stable condition to Home with . Greater than 31 minutes spent discharging the patient and coming up with patient discharge plan. Vitals: BP (!) 174/79 (BP Location: Right arm) Pulse 91 Temp 36.7 C (98.1 F) (Temporal) Resp 20 Ht 5' 7.99" (1.727 m) Wt 228 lb (103 kg) SpO2 94% BMI 34.68 kg/m Pulse Ox: SpO2 Av.1 % Min: 92 % Max: 98 % Supplemental O2: O2 Flow Rate (L/min): 2 L/min Physical Exam Vitals reviewed. Constitutional: General: He is not in acute distress. Appearance: Normal appearance. He is not ill-appearing or toxic-appearing. Cardiovascular: Rate and Rhythm: Normal rate. Pulmonary: Effort: Pulmonary effort is normal. No respiratory distress. Musculoskeletal: General: No deformity. Right lower leg: No edema. Left lower leg: No edema. Skin: General: Skin is warm. Neurological: Mental Status: He is alert. Psychiatric: Mood and Affect: Mood normal. Behavior: Behavior normal. Thought Content: Thought content normal. LABS: Recent Labs 11/28/2420011/29/2434711/30/24 0545 NA 134* 134* 135* K 4.1 3.8 4.0 CL 105 106 105 CO2 22* 21* 25 BUN 26* 31* 14 CREATININE 3.52* 4.03* 2.91* GLUCOSE 97 94 108 CALCIUM 8.8 8.8 9.5 Recent Labs 11/28/2420011/29/248 11/30/24 0545 WBC 4.6 4.2 5.2 RBC 3.41* 3.46* 3.89* HGB 10.5* 10.7* 12.0* HCT 31.9* 32.1* 36.0* MCV 93.5 92.8 92.5 MCH 30.8 30.9 30.8 MCHC 32.9 33.3 33.3 RDW 13.1 12.9 13.0 PLT 118* 123* 152 MPV 9.8 10.1 9.5 Discharge Medications: Medication List ASK your doctor about these medications azaTHIOprine 50 MG tablet Commonly known as: Imuran finasteride 5 MG tablet Commonly known as: Proscar gabapentin 100 MG capsule Commonly known as: Neurontin metoprolol tartrate 25 MG tablet Commonly known as: Lopressor mirtazapine 15 MG tablet Commonly known as: Remeron omeprazole [address] capsule Commonly known as: PriLOSEC Take 1 capsule (40 mg) by mouth daily. pregabalin 25 MG capsule Commonly known as: Lyrica tamsulosin 0.4 MG 24 hr capsule Commonly known as: Flomax Tylenol Extra Strength 500 MG tablet Generic drug: acetaminophen Recommended Follow-up: [address] [id number] Alycia Jennings MD [address] [facility]. [place], [place] [id number] Follow up on 01/13/2025 Follow up from hospital stay at 11:00 AM NEW PATIENT APPOINTMENT Complexity of Follow up: [] Moderate Complexity: follow up within 7-14 calendar days (47891) [x] Severe Complexity: follow up within 7 calendar days (44350) Follow up Testing, Pending results or Referrals at Transitional Care Visit: [x] yes [] no Instructions to MA: Please call patient on day after discharge (must document patient contacted within 2 business days of discharge). Follow up questions for MA: 1. Did you get medications filled and taking them as instructed from discharge? 2. Are you following your discharge instructions from your hospital stay? 3. Please confirm patient is scheduled for a follow up appointment within the above time frame. Signed: Aziza Christianson MD Division of Hospitalist Medicine [facility] 11/30/2024, 8:51 AM [1] Past Medical History: Diagnosis Date Allergic rhinitis BPH (benign prostatic hyperplasia) BPH (benign prostatic hyperplasia) CHF (congestive heart failure) (HCC) Chronic back pain Chronic kidney disease Chronic systolic heart failure (HCC) 06/05/2020 Compression fracture spring 2014 T12 Diabetes mellitus without complication (HCC) 07/24/2016 no diabetes GERD (gastroesophageal reflux disease) [place] (hard of hearing) 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 Hypertension Indwelling Osorio catheter present Obesity ROYAL (obstructive sleep apnea) Osteoarthritis Restless legs syndrome Status post right hip replacement 03/19/2016 Urge incontinence 07/24/2016 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[facility]) documented in this encounter [facility] 11-30-2024 Plan of care note Problem: Knowledge Deficit Goal: Patient/family/caregiver demonstrates understanding of disease process, treatment plan, medications, and discharge instructions Outcome: Progressing Problem: Neurological Deficit Goal: Neurological status is stable or improving Outcome: Progressing Problem: Activity Intolerance/Impaired Mobility Goal: Mobility/activity is maintained at optimum level for patient Outcome: Progressing Problem: Potential for Aspiration Goal: Non-ventilated patient's risk of aspiration is minimized Outcome: Progressing Goal: Ventilated patient's risk of aspiration is minimized Outcome: Progressing [facility] 11-29-2024 Plan of care note Problem: Knowledge Deficit Goal: Patient/family/caregiver demonstrates understanding of disease process, treatment plan, medications, and discharge instructions Outcome: Progressing Problem: Neurological Deficit Goal: Neurological status is stable or improving Outcome: Progressing Problem: Activity Intolerance/Impaired Mobility Goal: Mobility/activity is maintained at optimum level for patient Outcome: Progressing Problem: Potential for Aspiration Goal: Non-ventilated patient's risk of aspiration is minimized Outcome: Progressing Goal: Ventilated patient's risk of aspiration is minimized Outcome: Progressing Problem: Nutrition Goal: Nutritional status is improving Outcome: Progressing [facility] 11-29-2024 Note Formatting of this n ote might be different from the original. Care Management Progress Note Short Medical why still here: Follow up discussion with Pt's daughter Leonarda. Family has decided to try Home Care at this time. SNF will be back up plan. Home Care following. Pt has health ins and prescription drug cov. Pt has a PCP. Planned Discharge Disposition: Home Care pending Barriers/Today we still Wait: Clinical stability home care set up Length of Stay (Days): 4 GMLOS: 4.6 TCC to follow for discharge needs. T [facility] 11-29-2024 Note Formatting of this n ote might be different from the original. Care Management Progress Note Short Medical why still here: Follow up discussion with Pt's daughter Leonarda. Family has decided to try Home Care at this time. SNF will be back up plan. Home Care following. Pt has health ins and prescription drug cov. Pt has a PCP. Planned Discharge Disposition: Home Care pending Barriers/Today we still Wait: Clinical stability home care set up Length of Stay (Days): 4 GMLOS: 4.6 TCC to follow for discharge needs. T [facility] 11-29-2024 Note Care Management Prog ress Note Short Medical why still here: Follow up discussion with Pt's daughter Leonarda. Family has decided to try Home Care at this time. SNF will be back up plan. Home Care following. Pt has health ins and prescription drug cov. Pt has a PCP. Planned Discharge Disposition: Home Care pending Barriers/Today we still Wait: Clinical stability home care set up Length of Stay (Days): 4 GMLOS: 4.6 TCC to follow for discharge needs. [facility] 11-29-2024 Nurse Note Patient Name: Franklin Burton Patient : 1945 Acct: [id number] Date of Admission: 11/25/2024 Room/Bed: W3-332/W3-332 A Code Status: DNR-CCA Allergies: Allergies[1] Diagnosis: Problem List[2] Treatment: Hemodilaysis 2:1 Priority: Routine Location: Acute Room Diabetic: Yes NPO: No Isolation Precautions: Dialysis Consent for Treatment Verified: Yes Blood Consent Verified: Not Applicable ICEBOAT: Identify, Consent, Equipment, HepB Status, Orders Complete, Access Verified, Timeliness (o2 and suction functional @ bedside) Second Clinician Verifying: Yannick Villanueva RN Time out performed prior to access at 1406. Report Received from Primary RN at 1057. Primary RN (First Initial, Last Name, Title): Germaine DE LA O RN Incapacitated Nurse Education Completed: george villanueva rn HBsAg ONLY: Date Drawn: November 25, 2024 Results: Negative HBsAb: Date Drawn: November 25, 2024 Results: Immune >10 Order Dialyzer: Nipro Na+ Modeling: Not Applicable Dialysate Temperature (C): 36 Blood Flow Rate (BFR): 400 Dialysate Flow Rate (DFR): 500 Access to be Utilized Access: AVF Location: Upper Extremity Side: Left Needle gauge: 15 + Bruit/Thrill: Yes First Use X-ray Verified: Not Applicable OK to use line order: Not Applicable Site Assessment: Signs and Symptoms of Infection/Inflammation: None If yes: Not Applicable Dressing: na Site Prep: Medical Aseptic Technique Dressing Changed this Treatment: na If yes, by whom: na Date of Last Dressing Change: na na20[address]?: na Red Alcohol Caps in place?: na Gauze Dressing?: na Non-Dialysis Use?: No Comment: Flows: Good and Patent If access problem, who was notified: Pre and Post-Assessment Patient Vitals for the past 8 hrs: Level of Consciousness Heart Rhythm O2 Device Bilateral Breath Sounds Skin Condition/Temp Abdomen Inspection Bowel Sounds (All Quadrants) Edema Generalized Edema RUE Edema LUE Edema RLE Edema LLE Edema 11/29/24 1145 -- -- -- Diminished -- Soft;Rounded;Distended Active Right upper extremity;Left upper extremity;Right lower extremity;Left lower extremity Non-pitting -- None Non-pitting Non-pitting 11/29/24 1240 -- -- -- Diminished -- Soft;Rounded;Distended Active Left upper extremity;Right upper extremity;Left lower extremity;Right lower extremity Non-pitting None None Non-pitting Non-pitting 11/29/24 1349 Alert (0) Regular Nasal cannula Diminished Warm;Dry Soft;Rounded Audible Right lower extremity;Left lower extremity -- -- -- Non-pitting Non-pitting 11/29/24 1811 Alert (0) Regular -- -- -- -- -- -- -- -- -- -- -- Labs Lab Results Component Value Date/Time WBC 4.2 11/29/2024347 HGB 10.7 (L) 11/29/2024347 HGB 12.0 11/26/2024 0647 HCT 32.1 (L) 11/29/2024347 PLT 123 (L) 11/29/2024347 NA 134 (L) 11/29/2024347 K 3.8 11/29/2024347 CL 106 11/29/2024347 CO2 21 (L) 11/29/2024347 BUN 31 (H) 11/29/2024347 CREATININE 4.03 (H) 11/29/2024347 CREATININE 3.20 (H) 04/09/2021 1352 CALCIUM 8.8 11/29/2024347 PHOS 2.6 11/29/2024347 IV Drips and Rate/Dose Continuous Meds[3] Safety - Before each treatment: Dialysis Machine No.: [id number] RO Machine Number: [id number] Dialyzer Lot No.: [id number] Tubing Lot Number: [id number] All [employer]ctions Secure: Yes Venous Parameters Set: Yes Arterial Parameters Set: Yes NS Bag: Yes Saline Line Double Clamped: Yes Dialyzer: Nipro Prime Volume (mL): 200 mL RO Machine Number: [id number] RO Machine Log Sheet Completed: Yes Machine Alarm Self Test: Completed, Passed (11/29/24 1313) Air Foam Detector: Tested, Proper Function, pH Reading Extracorporeal Circuit Tested for Integrity: Yes Machine Conductivity: 13.7 Manual Conductivity: 13.6 Manual Ph: 7.2 Bleach Test (Neg): Yes Bath Temperature: 36 C (96.8 F) Conductivity Meter Serial #: [id number] Machine Functioning Alarm Free? Yes Dialysis Bath: K+ (Potassium): 2 Ca+ (Calcium): 2.5 Na+ (Sodium): 138 HCO3 (Bicarb): 33 Bicarbonate Concentrate Lot No.: [id number] Acid Concentrate Lot No.: [id number] Chlorine Testing - Before each treatment and every 4 hours: Time On: 1411 Time Off: 1811 Treatment Goal: 2L Weight Height: 172.7 cm (5' 7.99") (11/26/24 1123) Weight: 103 kg (228 lb) (11/25/24 1336) BMI (Calculated): 34.68 (11/25/24 1336) 1st check: less than 0.1 ppm at: 1145 2nd check: less than 0.1 ppm at: 1445 3rd check: less than 0.1 ppm at 1745 (if greater than 0.1 ppm, then check every 30 minutes from secondary) Access Flows and Pressures Patient Vitals for the past 8 hrs: Blood Flow Rate (mL/min) Ultrafiltration Rate (ml/hr) Arterial Pressure (mmHg) Venous Pressure (mmHg) TMP DFR Access Visible Intra-Hemodialysis Comments 11/29/24 1349 -- -- -- -- -- -- Yes pt aware of call light within reach and educated on use of call light 11/29/24 1411 200 mL/min 630 ml/hr -20 mmHg 30 mmHg 70 500 Yes tx iniated lines secured pt stable 11/29/24 1412 400 mL/min 630 ml/hr -80 mmHg 70 mmHg 100 500 Yes bfr increased 11/29/24 1432 400 mL/min 630 ml/hr -120 mmHg 140 mmHg 90 500 Yes pt resting, removed 219 11/29/24 1445 400 mL/min 630 ml/hr -120 mmHg 150 mmHg 90 500 Yes pt alert, removed 359 11/29/24 1500 400 mL/min 630 ml/hr -120 mmHg 150 mmHg 90 500 Yes Pt sleeping rmvd 539. b 11/29/24 1515 400 mL/min 630 ml/hr -120 mmHg 150 mmHg 90 500 Yes Pt sleeping. Rmvd 694. Lines secure. . 11/29/24 1530 400 mL/min 630 ml/hr -130 mmHg 160 mmHg 90 500 Yes pt alert, removed 832 11/29/24 1550 400 mL/min 630 ml/hr -140 mmHg 150 mmHg 90 500 Yes pt alert, removed 1040 11/29/24 1600 400 mL/min 630 ml/hr -140 mmHg 160 mmHg 90 500 Yes pt alert, stable, removed 1171 11/29/24 1615 400 mL/min 630 ml/hr -140 mmHg 160 mmHg 90 500 Yes pt watching tv, removed 1298 11/29/24 1630 400 mL/min 630 ml/hr -140 mmHg 160 mmHg 90 500 Yes pt stable watching tv 1441 uf removed 11/29/24 1645 400 mL/min 630 ml/hr -150 mmHg 160 mmHg 90 500 Yes pt alert, removed 16211/29/24 1700 400 mL/min 630 ml/hr -150 mmHg 160 mmHg 80 500 Yes pt alert, removed 1800 11/29/24 1715 400 mL/min 630 ml/hr -140 mmHg 170 mmHg 80 500 Yes pt alert, lines secure, removed 194111/29/24 1730 400 mL/min 630 ml/hr -150 mmHg 170 mmHg 80 500 Yes pt alert, stable, nremoved 210911/29/24 1745 400 mL/min 630 ml/hr -150 mmHg 170 mmHg 80 500 Yes pt alert, removed 225911/29/24 1800 400 mL/min 630 ml/hr -150 mmHg 170 mmHg 80 500 Yes pt alert, stable, removed 24111/29/241810 -- -- -- -- -- -- Yes tx complete pt stable 2500 uf removed Vital Signs Patient Vitals for the past 24 hrs: BP Temp Temp src Pulse Resp SpO2 11/29/24 1846 133/92 36.2 C (97.1 F) Temporal 99 16 97 % 11/29/241817 -- -- -- -- (!) 96 -- 11/29/241810 (!) 162/103 36.2 C (97.1 F) -- 98 16 98 % 11/29/24 1800 155/80 -- -- 93 -- -- 11/29/24 1745 142/79 -- -- 93 -- -- 11/29/24 1730 157/87 -- -- 95 -- -- 11/29/24 1715 155/87 -- -- 93 -- -- 11/29/24 1700 151/86 -- -- 92 -- -- 11/29/24 1645 118/93 -- -- 95 -- -- 11/29/24 1630 (!) 154/104 -- -- 89 -- -- 11/29/24 1615 151/98 -- -- 84 -- -- 11/29/24 1600 (!) 166/84 -- -- 84 -- -- 11/29/24 1550 (!) 162/96 -- -- 86 -- -- 11/29/24 1530 (!) 163/102 -- -- 86 -- -- 11/29/24 1515 (!) 175/83 -- -- 84 -- -- 11/29/24 1500 149/81 -- -- 83 -- -- 11/29/24 1445 (!) 165/87 -- -- 83 -- -- 11/29/24 1432 (!) 161/85 -- -- 81 -- -- 11/29/24 1412 152/85 -- -- 78 -- -- 11/29/24 1411 158/79 -- -- 81 -- -- 11/29/24 1355 155/87 36.3 C (97.4 F) -- 77 14 95 % 11/29/24 1343 145/80 36.6 C (97.9 F) Temporal 83 12 96 % 11/29/24 0935 151/96 36.4 C (97.5 F) Temporal 96 16 94 % 11/29/24 0516 156/96 36.3 C (97.4 F) Temporal 89 20 93 % 11/29/24 0146 158/95 36.5 C (97.7 F) Temporal 93 24 95 % 11/28/24 2136 (!) 171/97 36.5 C (97.7 F) Temporal 87 16 96 % Post-Dialysis Arterial Catheter Locking Solution: Not Applicable Venous Catheter Locking Solution: Not Applicable Post-Treatment Procedures: Blood returned, Access bleeding time < 10 minutes Machine Disinfection Process: Exterior Machine Disinfection Rinseback Volume (mL): 300 mL Total Liters Processed (L/min): 91.2 L/min Dialyzer Clearance: Lightly streaked Hemodialysis Intake (ml): 500 ml Hemodialysis Output (ml): 2500 ml NET Removed (ml): 2000 ml Tolerated Treatment: Good Patient Response to Treatment: stable Physician Notified: No Patient Disposition: Return to room Charge: $ IP Hemodialysis Charge: Hemodialysis Provider Notification Provider Notification Reason for Communication: Change in Status (Pt becoming more restless and agitated. interfering with monitoring equipment and high risk for falls) Provider Name: Dr. Alexis Provider Role: Resident Method of Communication: Secure chat Response: See orders (Dex restarted) Notification Date: 11/27/24 Notification Time: 302 Provider Role: Resident Method of Communication: Secure chat Response: See orders (Dex restarted) Notification Time: 302 Handoff complete and report given to Primary RN at 1823. Primary RN (First Initial, Last Name, Title): Germaine DE LA O RN Education Person Educated: Patient Knowledge Base: Substantial Barriers to Learning?: None Preferred method of Learning: Oral Topic(s): call light, Access Care, Signs and Symptoms of Infection, Fluid Management, and Procedural Teaching Tools: Explanation Response to Education: Verbalized Understanding [1] Allergies Allergen Reactions Aspirin Other Cannot have due to kidney disease Other reaction(s): cannot take d/t Zach's Vasculitis Kidney issues Other Other reaction(s): Other: See Comments Sneezing, itchy and watery eyes [2] Patient Active Problem List Diagnosis BPH with urinary obstruction Avascular necrosis of bone of hip (CMS/HCC) ([facility]) Gastroesophageal reflux disease Polyneuropathy due to other toxic agents ([facility]) Diverticulosis of large intestine without diverticulitis Zach's granulomatosis with renal involvement ([facility]) Hypertension 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 ([facility]) BPH with obstruction/lower urinary tract symptoms Obstructive sleep apnea syndrome Compression fracture of L1 lumbar vertebra ([facility]) Arteriovenous fistula ([facility]/HCC) ([facility]) Vitamin D deficiency Osteoporosis Morbidly obese ([facility]) Iron deficiency anemia, unspecified Abdominal hernia Neuropathy Heart failure ([facility]) Abnormal echocardiography Ankle pain Arthralgia Bronchitis Chest pain Chronic back pain Chronic systolic heart failure (HCC) Diarrhea Disease due to severe acute respiratory syndrome coronavirus 2 (SARS-CoV-2) Disorder of brain Epistaxis Fatigue Fever Finding of above normal blood pressure Hearing loss Heartburn Hyperkalemia Intermittent claudication ([facility]) Obesity with body mass index 30 or greater Prediabetes Restless legs syndrome Stage 3 chronic kidney disease ([facility]) Viral upper respiratory tract infection Chronic neuropathic pain Motion sickness Allergic rhinitis Allergy, unspecified, initial encounter Anaphylactic shock, unspecified, initial encounter Anemia in chronic kidney disease Chronic insomnia Chronic maxillary sinusitis Coagulation defect, unspecified (HCC) Dialysis patient (HCC) ESRD (end stage renal disease) (HCC) 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 (HCC) Malnutrition of mild degree (HCC) Nasal obstruction Nasal septal perforation Noninfective gastroenteritis and colitis, unspecified Other mechanical complication of surgically created arteriovenous fistula, initial encounter (HCC) Pain, unspecified Peritoneal dialysis catheter in situ (CMS/HCC) (HCC) Periumbilical abdominal pain Secondary hyperparathyroidism of renal origin (HCC) Sensorineural hearing loss (SNHL), bilateral Swelling of upper extremity Tinnitus, bilateral Tremor Stroke-like symptom Stroke-like symptoms [3] [facility] 11-29-2024 Nurse Note Patient Name: Franklin Burton Patient : 1945 Acct: [id number] Date of Admission: 11/25/2024 Room[facility]: [facility] A Code Status: DNR-CCA Allergies: Allergies[1] Diagnosis: Problem List[2] Treatment: Hemodilaysis 2:1 Priority: Routine Location: Acute Room Diabetic: Yes NPO: No Isolation Precautions: Dialysis Consent for Treatment Verified: Yes Blood Consent Verified: Not Applicable ICEBOAT: Identify, Consent, Equipment, HepB Status, Orders Complete, Access Verified, Timeliness (o2 and suction functional @ bedside) Second Clinician Verifying: Yannick Villanueva RN Time out performed prior to access at 1406. Report Received from Primary RN at 1057. Primary RN (First Initial, Last Name, Title): Germaine DE LA O RN Incapacitated Nurse Education Completed: george villanueva rn HBsAg ONLY: Date Drawn: November 25, 2024 Results: Negative HBsAb: Date Drawn: November 25, 2024 Results: Immune >10 Order Dialyzer: Nipro Na+ Modeling: Not Applicable Dialysate Temperature (C): 36 Blood Flow Rate (BFR): 400 Dialysate Flow Rate (DFR): 500 Access to be Utilized Access: AVF Location: Upper Extremity Side: Left Needle gauge: 15 + Bruit/Thrill: Yes First Use X-ray Verified: Not Applicable OK to use line order: Not Applicable Site Assessment: Signs and Symptoms of Infection/Inflammation: None If yes: Not Applicable Dressing: na Site Prep: Medical Aseptic Technique Dressing Changed this Treatment: na If yes, by whom: na Date of Last Dressing Change: na [id number]?: na Red Alcohol Caps in place?: na Gauze Dressing?: na Non-Dialysis Use?: No Comment: Flows: Good and Patent If access problem, who was notified: Pre and Post-Assessment Patient Vitals for the past 8 hrs: Level of Consciousness Heart Rhythm O2 Device Bilateral Breath Sounds Skin Condition/Temp Abdomen Inspection Bowel Sounds (All Quadrants) Edema Generalized Edema RUE Edema LUE Edema RLE Edema LLE Edema 11/29/24 1145 -- -- -- Diminished -- Soft;Rounded;Distended Active Right upper extremity;Left upper extremity;Right lower extremity;Left lower extremity Non-pitting -- None Non-pitting Non-pitting 11/29/24 1240 -- -- -- Diminished -- Soft;Rounded;Distended Active Left upper extremity;Right upper extremity;Left lower extremity;Right lower extremity Non-pitting None None Non-pitting Non-pitting 11/29/24 1349 Alert (0) Regular Nasal cannula Diminished Warm;Dry Soft;Rounded Audible Right lower extremity;Left lower extremity -- -- -- Non-pitting Non-pitting 11/29/24 1811 Alert (0) Regular -- -- -- -- -- -- -- -- -- -- -- Labs Lab Results Component Value Date/Time WBC 4.2 11/29/2024347 HGB 10.7 (L) 11/29/2024347 HGB 12.0 11/26/2024 0647 HCT 32.1 (L) 11/29/2024347 PLT 123 (L) 11/29/2024347 NA 134 (L) 11/29/2024347 K 3.8 11/29/2024347 CL 106 11/29/2024347 CO2 21 (L) 11/29/2024347 BUN 31 (H) 11/29/2024347 CREATININE 4.03 (H) 11/29/2024347 CREATININE 3.20 (H) 04/09/2021 1352 CALCIUM 8.8 11/29/2024347 PHOS 2.6 11/29/2024 0348 IV Drips and Rate/Dose Continuous Meds[3] Safety - Before each treatment: Dialysis Machine No.: [id number] RO Machine Number: [id number] Dialyzer Lot No.: [id number] Tubing Lot Number: [id number] [employer] Secure: Yes Venous Parameters Set: Yes Arterial Parameters Set: Yes NS Bag: Yes Saline Line Double Clamped: Yes Dialyzer: Nipro Prime Volume (mL): 200 mL RO Machine Number: [id number] RO Machine Log Sheet Completed: Yes Machine Alarm Self Test: Completed, Passed (11/29/24 1313) Air Foam Detector: Tested, Proper Function, pH Reading Extracorporeal Circuit Tested for Integrity: Yes Machine Conductivity: 13.7 Manual Conductivity: 13.6 Manual Ph: 7.2 Bleach Test (Neg): Yes Bath Temperature: 36 C (96.8 F) Conductivity Meter Serial #: [id number] Machine Functioning Alarm Free? Yes Dialysis Bath: K+ (Potassium): 2 Ca+ (Calcium): 2.5 Na+ (Sodium): 138 HCO3 (Bicarb): 33 Bicarbonate Concentrate Lot No.: [id number] Acid Concentrate Lot No.: [id number] Chlorine Testing - Before each treatment and every 4 hours: Time On: 1411 Time Off: 1811 Treatment Goal: 2L Weight Height: 172.7 cm (5' 7.99") (11/26/24 1123) Weight: 103 kg (228 lb) (11/25/24 1336) BMI (Calculated): 34.68 (11/25/24 1336) 1st check: less than 0.1 ppm at: 1145 2nd check: less than 0.1 ppm at: 1445 3rd check: less than 0.1 ppm at 1745 (if greater than 0.1 ppm, then check every 30 minutes from secondary) Access Flows and Pressures Patient Vitals for the past 8 hrs: Blood Flow Rate (mL/min) Ultrafiltration Rate (ml/hr) Arterial Pressure (mmHg) Venous Pressure (mmHg) TMP DFR Access Visible Intra-Hemodialysis Comments 11/29/24 1349 -- -- -- -- -- -- Yes pt aware of call light within reach and educated on use of call light 11/29/24 1411 200 mL/min 630 ml/hr -20 mmHg 30 mmHg 70 500 Yes tx iniated lines secured pt stable 11/29/24 1412 400 mL/min 630 ml/hr -80 mmHg 70 mmHg 100 500 Yes bfr increased 11/29/24 1432 400 mL/min 630 ml/hr -120 mmHg 140 mmHg 90 500 Yes pt resting, removed 219 11/29/24 1445 400 mL/min 630 ml/hr -120 mmHg 150 mmHg 90 500 Yes pt alert, removed 359 11/29/24 1500 400 mL/min 630 ml/hr -120 mmHg 150 mmHg 90 500 Yes Pt sleeping rmvd 539. b 11/29/24 1515 400 mL/min 630 ml/hr -120 mmHg 150 mmHg 90 500 Yes Pt sleeping. Rmvd 694. Lines secure. . 11/29/24 1530 400 mL/min 630 ml/hr -130 mmHg 160 mmHg 90 500 Yes pt alert, removed 832 11/29/24 1550 400 mL/min 630 ml/hr -140 mmHg 150 mmHg 90 500 Yes pt alert, removed 1040 11/29/24 1600 400 mL/min 630 ml/hr -140 mmHg 160 mmHg 90 500 Yes pt alert, stable, removed 1171 11/29/24 1615 400 mL/min 630 ml/hr -140 mmHg 160 mmHg 90 500 Yes pt watching tv, removed 1298 11/29/24 1630 400 mL/min 630 ml/hr -140 mmHg 160 mmHg 90 500 Yes pt stable watching tv 1441 uf removed 11/29/24 1645 400 mL/min 630 ml/hr -150 mmHg 160 mmHg 90 500 Yes pt alert, removed 1622 11/29/24 1700 400 mL/min 630 ml/hr -150 mmHg 160 mmHg 80 500 Yes pt alert, removed 1800 11/29/24 1715 400 mL/min 630 ml/hr -140 mmHg 170 mmHg 80 500 Yes pt alert, lines secure, removed 19411/29/24 1730 400 mL/min 630 ml/hr -150 mmHg 170 mmHg 80 500 Yes pt alert, stable, nremoved 210911/29/24 1745 400 mL/min 630 ml/hr -150 mmHg 170 mmHg 80 500 Yes pt alert, removed 225911/29/24 1800 400 mL/min 630 ml/hr -150 mmHg 170 mmHg 80 500 Yes pt alert, stable, removed 24111/29/24 1811 -- -- -- -- -- -- Yes tx complete pt stable 2500 uf removed Vital Signs Patient Vitals for the past 24 hrs: BP Temp Temp src Pulse Resp SpO2 11/29/24 1846 133/92 36.2 C (97.1 F) Temporal 99 16 97 % 11/29/24 1818 -- -- -- -- (!) 96 -- 11/29/24 1811 (!) 162/103 36.2 C (97.1 F) -- 98 16 98 % 11/29/24 1800 155/80 -- -- 93 -- -- 11/29/24 1745 142/79 -- -- 93 -- -- 11/29/24 1730 157/87 -- -- 95 -- -- 11/29/24 1715 155/87 -- -- 93 -- -- 11/29/24 1700 151/86 -- -- 92 -- -- 11/29/24 1645 118/93 -- -- 95 -- -- 11/29/24 1630 (!) 154/104 -- -- 89 -- -- 11/29/24 1615 151/98 -- -- 84 -- -- 11/29/24 1600 (!) 166/84 -- -- 84 -- -- 11/29/24 1550 (!) 162/96 -- -- 86 -- -- 11/29/24 1530 (!) 163/102 -- -- 86 -- -- 11/29/24 1515 (!) 175/83 -- -- 84 -- -- 11/29/24 1500 149/81 -- -- 83 -- -- 11/29/24 1445 (!) 165/87 -- -- 83 -- -- 11/29/24 1432 (!) 161/85 -- -- 81 -- -- 11/29/24 1412 152/85 -- -- 78 -- -- 11/29/24 1411 158/79 -- -- 81 -- -- 11/29/24 1355 155/87 36.3 C (97.4 F) -- 77 14 95 % 11/29/24 1343 145/80 36.6 C (97.9 F) Temporal 83 12 96 % 11/29/24 0935 151/96 36.4 C (97.5 F) Temporal 96 16 94 % 11/29/24 0516 156/96 36.3 C (97.4 F) Temporal 89 20 93 % 11/29/24 0146 158/95 36.5 C (97.7 F) Temporal 93 24 95 % 11/28/24 2136 (!) 171/97 36.5 C (97.7 F) Temporal 87 16 96 % Post-Dialysis Arterial Catheter Locking Solution: Not Applicable Venous Catheter Locking Solution: Not Applicable Post-Treatment Procedures: Blood returned, Access bleeding time < 10 minutes Machine Disinfection Process: Exterior Machine Disinfection Rinseback Volume (mL): 300 mL Total Liters Processed (L/min): 91.2 L/min Dialyzer Clearance: Lightly streaked Hemodialysis Intake (ml): 500 ml Hemodialysis Output (ml): 2500 ml NET Removed (ml): 2000 ml Tolerated Treatment: Good Patient Response to Treatment: stable Physician Notified: No Patient Disposition: Return to room Charge: $ IP Hemodialysis Charge: Hemodialysis Provider Notification Provider Notification Reason for Communication: Change in Status (Pt becoming more restless and agitated. interfering with monitoring equipment and high risk for falls) Provider Name: Dr. Alexis Provider Role: Resident Method of Communication: Secure chat Response: See orders (Dex restarted) Notification Date: 11/27/24 Notification Time: 0303 Provider Role: Resident Method of Communication: Secure chat Response: See orders (Dex restarted) Notification Time: 030 Handoff complete and report given to Primary RN at 1823. Primary RN (First Initial, Last Name, Title): Germaine DE LA O RN Education Person Educated: Patient Knowledge Base: Substantial Barriers to Learning?: None Preferred method of Learning: Oral Topic(s): call light, Access Care, Signs and Symptoms of Infection, Fluid Management, and Procedural Teaching Tools: Explanation Response to Education: Verbalized Understanding [1] Allergies Allergen Reactions Aspirin Other Cannot have due to kidney disease Other reaction(s): cannot take d/t Zach's Vasculitis Kidney issues Other Other reaction(s): Other: See Comments Sneezing, itchy and watery eyes [2] Patient Active Problem List Diagnosis BPH with urinary obstruction Avascular necrosis of bone of hip (CMS/HCC) (HCC) Gastroesophageal reflux disease 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) Diverticulosis of large intestine without diverticulitis Zach's granulomatosis with renal involvement (HCC) Hypertension Granulomatosis with polyangiitis (HCC) Adenomatous colon polyp Stage 5 chronic kidney disease due to hypertension (HCC) BPH with obstruction/lower urinary tract symptoms Obstructive sleep apnea syndrome Compression fracture of L1 lumbar vertebra (HCC) Arteriovenous fistula (CMS/HCC) (HCC) Vitamin D deficiency Osteoporosis Morbidly obese (HCC) Iron deficiency anemia, unspecified Abdominal hernia Neuropathy Heart failure (HCC) Abnormal echocardiography Ankle pain Arthralgia Bronchitis Chest pain Chronic back pain Chronic systolic heart failure (HCC) Diarrhea Disease due to severe acute respiratory syndrome coronavirus 2 (SARS-CoV-2) Disorder of brain Epistaxis Fatigue Fever Finding of above normal blood pressure Hearing loss Heartburn Hyperkalemia Intermittent claudication (HCC) Obesity with body mass index 30 or greater Prediabetes Restless legs syndrome Stage 3 chronic kidney disease (HCC) Viral upper respiratory tract infection Chronic neuropathic pain Motion sickness Allergic rhinitis Allergy, unspecified, initial encounter Anaphylactic shock, unspecified, initial encounter Anemia in chronic kidney disease Chronic insomnia Chronic maxillary sinusitis Coagulation defect, unspecified (HCC) Dialysis patient (HCC) ESRD (end stage renal disease) (HCC) 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 (HCC) Malnutrition of mild degree (HCC) Nasal obstruction Nasal septal perforation Noninfective gastroenteritis and colitis, unspecified Other mechanical complication of surgically created arteriovenous fistula, initial encounter ([facility]) Pain, unspecified Peritoneal dialysis catheter in situ (CMS/HCC) (HCC) Periumbilical abdominal pain Secondary hyperparathyroidism of renal origin (HCC) Sensorineural hearing loss (SNHL), bilateral Swelling of upper extremity Tinnitus, bilateral Tremor Stroke-like symptom Stroke-like symptoms [3] 2L removed with tx, less than 10min hold time per site, dressing c/d/I 11/26/24 1440 Vital Signs BP 147/77 During Hemodialysis Assessment Blood Flow Rate (mL/min) 400 mL/min Arterial Pressure (mmHg) -140 mmHg Venous Pressure (mmHg) 170 mmHg TMP 70 DFR 500 Intra-Hemodialysis Comments LVSD, HD complpleted, blood rinsed back without diffiuclty, dressing c/d/i Access Visible Yes Hemodialysis Arteriovenous Fistula 11/25/24 Left Upper arm Placement Date/Time: 11/25/24 (c) 1840 Earliest Known Present: 11/25/24 Orientation: Left Access Location: Upper arm AV Fistula Thrill present;Bruit present Site Assessment Clean;Dry;Intact Status Deaccessed Dressing Status Clean, dry & intact Dressing Intervention New dressing Post-Hemodialysis Assessment Post-Treatment Procedures Blood returned;Access bleeding time < 10 minutes Machine Disinfection Process Exterior Machine Disinfection Rinseback Volume (mL) 200 mL Total Liters Processed (L/min) 80.7 L/min Dialyzer Clearance Lightly streaked Hemodialysis Intake (ml) 400 ml Hemodialysis Output (ml) 2400 ml NET Removed (ml) 2000 ml Tolerated Treatment Good Patient Response to Treatment stable condition Physician Notified No Patient Disposition Remain in ICU/ED $ IP Hemodialysis Charge Hemodialysis [address] Weinberg after pt seen thrashing about in bed seeming restless. Family reports pt does have restless leg syndrome, and also requested that he have something to aid in his level of comfort. 0843 Dr. Weinberg stated he would see the patient, and this RN responded "Ok, he is quite uncomfortable so I hope that is soon". 0906 Dr. Weinberg put in for seroquel PO. Patient has been NPO since failing swallow test early this morning. 0907 This RN messaged to educate Dr. Weinberg that pt was NPO, and clarified further that he had failed a swallow test. 0912 Patient continues to thrash in bed, continued restlessness as physicians continue to put orders for imaging in for patient, added Dr. Hebert from neurology to chat so he was aware of situaton and difficulty that would be had getting appropriate imaging considering patient's inability to stay still. 1023 Dr Hernandez states patient should be able to lie flat for a CT. Neuro team was then on the floor and approached this RN asking why he could not have imaging done. This RN again reported patients unresolved psychomotor agitation and restlessness, for which Dr. Weinberg had put in an order for 0.[address] Hernandez had been added to the chat. At this time neuro expressed concern regarding administration of medication, which they unfortunately were not able to advise against administering despite being aware of patient's needs for medication due to discomfort as evidenced by restlessness that has persisted since 0837 AM. Cosigned by Nuha Hebert MD at 11/25/2024 12:43 PM EDT Associated attestation - Nuha Hebert MD - 11/25/2024 12:43 PM EDT Made aware of the ativan ordered by primary. Told the nurse not to give it and I was informed that it was already given documented in this encounter [facility] 11-29-2024 Note Hospitalist Progress Note - [facility] - [employer] ([facility]) 11/29/2024 1:27 PM [phone]: Please page me for patient care issues. [phone]: Please page [facility] Hospitalist - [facility] for any issues. Subjective and Objective: Admit Date: 11/25/2024 PCP: Matilde Noguera MD No chief complaint on file. Hospital course: ICU course per Dr. Dasilva: "79 y/o M with PMHx ESRD on iHD, BPH, T2DM, Obesity, ROYAL, RLS, GPA, HFpEF (EF 50% on 11/25/24), chronic back pain with neuropathy who presented to [facility] as a transfer from outside facility for evaluation of AMS. Pt admitted to the hospitalist service with neurology consult. Plan is for EEG and MRI for further evaluation. However, the patient was notably too agitated for these studies to be completed. ICU consulted for admission for control of agitation. [11/27 events:] Overnight, patient became delirious and required 12.5 mg of Seroquel and was restarted on precedex. Also, he was complaining of abdominal discomfort so senna and simethicone were given. This morning patient is heavily sedated due to precedex. He is only responding to verbal stimuli and is not following commands. Family updated regarding plan for potential transfer to floor later in the day." Pt transferred to [facility] 11/28. Neurocritical care advised against LP. [employer]IGATION LIEUTENANT eval ordered for dysphagia, diet advanced with improvement in encephalopathy. MRI brain 11/26 with probable chronic ischemic and atrophic changes. EEG performed 11/27, interpreted as "Continuous diffuse mild slowing is seen not responsive to stimulation...findings are supportive of a stable mild global encephalopathy non-specific as to etiology." Neuro was concerned for dialysis disequilibrium syndrome, however nephrology did not suspect this was the cause given that the patient did not possess typical risk factors for large swings in solutes as far as new onset dialysis or when restarting dialysis after significant lapses in treatment. Per discussions with family, pt was taking extra of pain medications including lyrica and gabapentin. Takes for restless legs + LE neuropathy. Inconsistent dosing may have resulted in unintentional dose accumulation leading up to his presentation. Prior episode approx 1yr ago was preceded by severe back pain a few days before, therefore concern that pt could have been taking extra doses at that time too. Geriatrics consulted for AMS workup. Interval Updates: 11/29/24 -Per discussions with family, pt was taking extra of pain medications including lyrica and gabapentin. Takes for restless legs + LE neuropathy. Inconsistent dosing (some days takes extra then will skip other days) in conjunction with dialysis dependence (skipping vs extra doses on dialysis or nondialysis days?) may have resulted in dose accumulation and neurological sequelae. Was instructed to take medications as prescribed to avoid this possible side effect. -Ordered restless leg workup including iron studies, PTH. -Appreciated geriatrics recs. Will be coming by with [facility] to see patient tomorrow prior to discharged, I asked pt and family to discuss whether it would be better to stop (wean off) chronic medication (gabapentin) or relatively newer medication (lyrica). Lyrica discontinued for now. -Family would like for pt to be transported home due to weakness if he is unable to ambulate/pivot without assistance (home uses walker, wheelchair). Need to discuss with staff to arrange transportation. DC in AM; family wants [facility] Adult diet Dysphagia - Minced and Moist Dietary Orders (From admission, onward) Start Ordered 11/29/24 1252 Adult diet Dysphagia - Minced and Moist Diet effective now Comments: Pureed/thin with 1:1 assist Question: Diet type Answer: Dysphagia - Minced and Moist 11/29/24 1251 11/26/24 1536 Supplement:Lunch, Dinner; Vanilla Magic Cup Until discontinued Question Answer Comment Frequency Lunch Frequency Dinner Select supplement: Vanilla Magic Cup 11/26/241535 I/O last 3 completed shifts: In: - (0 mL/kg) Out: 100 (1 mL/kg) [Urine:100 (0 mL/kg/hr)] Weight: 103.4 kg @IODETAILS@ @[id number]@ Medications: Continuous Meds[1] Scheduled Meds[2] Recent Labs 11/27/2431411/28/2420011/29/24347 WBC 5.9 4.6 4.2 HGB 11.1* 10.5* 10.7* PLT 114* 118* 123* Recent Labs 11/27/2431411/28/2420011/29/24 034 NA 136 134* 134* K 3.9 4.1 3.8 CL 103 105 106 CO2 24 22* 21* BUN 16 26* 31* CREATININE 2.84* 3.52* 4.03* GLUCOSE 110 97 94 Recent Labs 11/27/2431411/28/2420011/29/24 0348 AST 27 31 35* ALT 9 16 25 BILITOT 1.2* 0.8 0.9 ALKPHOS 83 82 91 No results found for: "TRIG", "HDL", "LDLCALC", "CHOL" No results found for: "PHART", "PO2ART", "NYZ6LEI" No results for input(s): "INR" in the last 72 hours. No results for input(s): "CKTOTAL", "CKMB", "TROPONINI" in the last 72 hours. No results for input(s): "DDIMER" in the last 72 elías (more content not included)... [facility] 11-29-2024 Note Formatting of this n ote is different from the original. Met with patient, Kaley and daughter Leonarda discussed patient would like a new PCP did not have a PCP in mind. Scheduled with [facility] in [place]. Plan of Treatment Plan of Treatment - Upcoming Encounters Upcoming Encounters Date Type Department Care Team (Latest Contact Info) Description 01/13/2025 11:00 AM EDT Office Visit [facility] [place] [address] [place] [address] Alycia Jennings MD [address], [place] [phone] [facility] 11-29-2024 Note Formatting of this n ote is different from the original. Met with patient, Ada and daughter Leonarda discussed patient would like a new PCP did not have a PCP in mind. Scheduled with [facility] in [place]. Plan of Treatment Plan of Treatment - Upcoming Encounters Upcoming Encounters Date Type Department Care Team (Latest Contact Info) Description 01/13/2025 11:00 AM EDT Office Visit [facility] [address] [place] [address] Alycia Jennings MD [address], [place] [phone] [facility] 11-29-2024 Note Formatting of this n ote might be different from the original. [facility] is agency of choice. [facility] unable to service as patient is out of service area. Educated patient and daughter Leonarda on Home Care and services available. Patient is agreeable to receiving home care services at this time. Patient was given choice of home care agencies available in the area and is agreeable to having referrals made with agencies that staff the patients service location. [facility] Liaison to discuss available agencies to accept case with patient upon receiving responses. [facility] 11-29-2024 Note Formatting of this n ote might be different from the original. [facility] is agency of choice. [facility] unable to service as patient is out of service area. Educated patient and daughter Leonarda on Home Care and services available. Patient is agreeable to receiving home care services at this time. Patient was given choice of home care agencies available in the area and is agreeable to having referrals made with agencies that staff the patients service location. Referrals have been sent via [facility]. Liaison to discuss available agencies to accept case with patient upon receiving responses. [facility] [employer] 11-29-2024 Note Formatting of this n ote might be different from the original. Planning Intern following case for Discharge Needs. [facility] [employer] 11-29-2024 Note Formatting of this n ote might be different from the original. Planning Intern following case for Discharge Needs. [facility] [employer] 11-29-2024 Note Formatting of this n ote might be different from the original. Care Management Progress Note Short Medical why still here: Pt admitted with stroke like symptoms. Stroke team consulted. Stroke workup negative. Worsening Cognition and ADL decline suspected to be chronic in nature. Met with pt's spouse Kaley and daughter Leonarda who were at bedside. Introduced self and role. Discussed possible SNF options Gave patient SNF list. Consulted hospital account liaison. Costumed Character Entertainer consulted to assist family with finding new PCP. Pt is from home with family. Planned Discharge Disposition: Long-Term Facility Barriers/Today we still Wait: Clinical stability Length of Stay (Days): 4 GMLOS: 4.6 TCC to follow for discharge needs. [facility] 11-29-2024 Note Formatting of this n ote might be different from the original. Care Management Progress Note Short Medical why still here: Pt admitted with stroke like symptoms. Stroke team consulted. Stroke workup negative. Worsening Cognition and ADL decline suspected to be chronic in nature. Met with pt's spouse Kaley and daughter Leonarda who were at bedside. Introduced self and role. Discussed possible SNF options Gave patient SNF list. Consulted hospital account liaison. Costumed Character Entertainer consulted to assist family with finding new PCP. Pt is from home with family. Planned Discharge Disposition: Long-Term Facility Barriers/Today we still Wait: Clinical stability Length of Stay (Days): 4 GMLOS: 4.6 TCC to follow for discharge needs. [facility] 11-29-2024 Note Care Management Prog ress Note Short Medical why still here: Pt admitted with stroke like symptoms. Stroke team consulted. Stroke workup negative. Worsening Cognition and ADL decline suspected to be chronic in nature. Met with pt's spouse Kaley and daughter Leonarda who were at bedside. Introduced self and role. Discussed possible SNF options Gave patient SNF list. Consulted hospital account liaison. Costumed Character Entertainer consulted to assist family with finding new PCP. Pt is from home with family. Planned Discharge Disposition: Long-Term Facility Barriers/Today we still Wait: Clinical stability Length of Stay (Days): 4 GMLOS: 4.6 TCC to follow for discharge needs. [facility] 11-29-2024 Note Nephrology Progress Note Patient: Franklin Burton Room number: [id number] A Date of Admit: 11/25/2024 LOS: 4 days Referring physician: Vijay Lott MD Outpatient Armored Car Guard: [facility] Assessment / Plan Franklin Burton is a 79 y.o. male with a past medical history of ESRD on HD MWF at [facility], GPA, DM type 2, HTN, HFrEF, BPH, GERD, ROYAL, OA, obesity, RLS, neuropathy, who was brought in from OSH due to AMS. Pt had HD and went home, then woke up agitated, feeling nauseated and confused, undergoing neurologic work up. Renal plan: 1-ESRD on HD MWF -will plan for next HD today -he is on gabapentin, lyrica discontinued 2-Anemia: -Hgb 10.7, at goal -hold JENNIFER 3-QAMAR: -last Ca was 8.8 and phosphorus 2.6 -not on binders 4-BP/volume status: -last BP was 151/96 -he is on metoprolol 25 mg bid -TTE EF 50%. pHTN present. IVC not visualized. -will investigate EDW -HD today with 2 L UF goal 5-AMS: -neuro following -unlikely to be dds -geriatrics consulted 6-ID: -blood cx NGTD -not on Abs currently -he is on azathioprine for GPA, establishing with Dr. Palma ([facility]) next week Thank you for allowing us to participate in the care of this patient. Please call with any questions. Aleyda Martinez MD [facility] ([facility] Office phone: [phone] Office fax: [phone] 11/29/2024 Subjective Patient was seen and examined this am. Family at bedside. He was complaining of a sore throat. He denies any cough, nausea, vomiting, SOB or abdominal pain. He can't recall last BM. Family notes he is less restless this am. Medications Scheduled Meds:Scheduled Meds[1] Continuous Infusions:Continuous Meds[2] Review of Systems As above Vital Signs Vitals: 11/28/24 2136 11/29/24 0146 11/29/24 0516 11/29/24 0935 BP: (!) 171/97 158/95 156/96 151/96 BP Location: Right arm Right arm Right arm Right arm Patient Position: Sitting Sitting Sitting Sitting Pulse: 87 93 89 96 Resp: 16 24 20 16 Temp: 36.5 ?C (97.7 ?F) 36.5 ?C (97.7 ?F) 36.3 ?C (97.4 ?F) 36.4 ?C (97.5 ?F) TempSrc: Temporal Temporal Temporal Temporal SpO2: 96% 95% 93% 94% Weight: Height: Wt Readings from Last 3 Encounters: 11/25/24 103 kg (228 lb) 08/07/23 103 kg (228 lb) 01/09/23 96.6 kg (213 lb) Admit Wt: Weight: 103 kg (228 lb) Estimated body mass index is 34.68 kg/m? as calculated from the following: Height as of this encounter: 1.727 m (5' 7.99"). Weight as of this encounter: 103 kg (228 lb). Physical Exam General: awake and alert, lying comfortable in bed in NAD, still somewhat slow to answer questions. He is on RA. HEENT: Sclera clear, EOMI, MMM, Nose/ears/hearing grossly normal Neck: Supple, trachea midline, no mass Chest: Normal excusion Heart: RRR, no rub/heave Lungs: Clear bilaterally, unlabored Abd: Soft, (+) BS, non-tender, non distended Ext: No edema Neuro: No tremor/myoclonus Skin: warm and dry, no rash LUE AVF with thrill and bruit present LABS Labs reviewed. Recent Labs 11/27/2431411/28/2420011/29/24 0348 WBC 5.9 4.6 4.2 HGB 11.1* 10.5* 10.7* HCT 33.7* 31.9* 32.1* MCV 93.6 93.5 92.8 PLT 114* 118* 123* Recent Labs 11/27/2431411/28/24 0201 11/29/24 0348 ALT 9 16 25 AST 27 31 35* ALKPHOS 83 82 91 BILITOT 1.2* 0.8 0.9 Diagnostic Studies MRI brain 11/27: 1. No acute intracranial findings. 2. Probable chronic ischemic and atrophic changes. CXR 11/25: No acute cardiopulmonary process. The patient may proceed with MRI in regards to this exam. CT head 11/25: 1. No acute intracranial abnormality. 2. Diffuse cortical volume loss and chronic small vessel ischemic changes. [1] atorvastatin, 40 mg, Oral, Nightly azaTHIOprine, 50 mg, Oral, Lunch clopidogrel, 75 mg, Oral, Daily gabapentin, 200 mg, Oral, Nightly heparin, 5,000 Units, SubCUTAneous, 2 times per day melatonin, 5 mg, Oral, Nightly metoprolol tartrate, 25 mg, Oral, BID QUEtiapine, 25 mg, Oral, Nightly senna-docusate sodium, 2 tablet, Oral, Daily sodium chloride 0.9%, 5-40 mL, IntraVENous, q12h tamsulosin, 0.4 mg, Oral, Daily [2] [facility] 11-28-2024 Plan of care note Problem: Knowledge Deficit Goal: Patient/family/caregiver demonstrates understanding of disease process, treatment plan, medications, and discharge instructions Outcome: Progressing Problem: Neurological Deficit Goal: Neurological status is stable or improving Outcome: Progressing Problem: Activity Intolerance/Impaired Mobility Goal: Mobility/activity is maintained at optimum level for patient Outcome: Progressing Problem: Potential for Aspiration Goal: Non-ventilated patient's risk of aspiration is minimized Outcome: Progressing Goal: Ventilated patient's risk of aspiration is minimized Outcome: Progressing Problem: Nutrition Goal: Nutritional status is improving Outcome: Progressing [facility] 11-28-2024 Note Hospitalist Progress Note - [facility] [employer] ([facility]) 11/28/2024 10:46 AM [phone]: Please page me for patient care issues. [phone]: Please page [facility] Hospitalist - [facility] for any issues. Subjective and Objective: Admit Date: 11/25/2024 PCP: Matilde Noguera MD No chief complaint on file. Hospital course: ICU course per Dr. Dasilva: "79 y/o M with PMHx ESRD on iHD, BPH, T2DM, Obesity, ROYAL, RLS, GPA, HFpEF (EF 50% on 11/25/24), chronic back pain with neuropathy who presented to [facility] as a transfer from outside facility for evaluation of AMS. Pt admitted to the hospitalist service with neurology consult. Plan is for EEG and MRI for further evaluation. However, the patient was notably too agitated for these studies to be completed. ICU consulted for admission for control of agitation. [11/27 events:] Overnight, patient became delirious and required 12.5 mg of Seroquel and was restarted on precedex. Also, he was complaining of abdominal discomfort so senna and simethicone were given. This morning patient is heavily sedated due to precedex. He is only responding to verbal stimuli and is not following commands. Family updated regarding plan for potential transfer to floor later in the day." Pt transferred to [facility] 11/28. Neurocritical care advised against LP. [employer]ATION [employer]NT eval ordered. EEG performed 11/27, interpreted as Continuous diffuse mild slowing is seen not responsive to stimulation...findings are supportive of a stable mild global encephalopathy non-specific as to etiology." Interval Updates: 11/28/24 -Phos 2.0 (1.6), BMP stable, CBC stable. -VSS -Met with pt and family at bedside, ultimately pt's mentation improving but still mildly encephalopathic. Nephro does not believe this was dialysis dysequilibrium syndrome. Consider discussion with geriatrics tomorrow for dementia/delirium -Skilled for SNF, discuss with TCC tomorrow. Pt reports progressive debility over course of some months Adult diet Dysphagia - Pureed Dietary Orders (From admission, onward) Start Ordered 11/26/24 1536 Supplement:Lunch, Dinner; Vanilla Magic Cup Until discontinued Question Answer Comment Frequency Lunch Frequency Dinner Select supplement: Vanilla Magic Cup 11/26/24 1536 11/26/24 1030 Adult diet Dysphagia - Pureed Diet effective now Comments: Pureed/thin with 1:1 assist Question: Diet type Answer: Dysphagia - Pureed 11/26/24 1031 I/O last 3 completed shifts: In: 1310.3 (12.7 mL/kg) [I.V.:1310.3 (12.7 mL/kg)] Out: 150 (1.5 mL/kg) [Urine:150 (0 mL/kg/hr)] Weight: 103.4 kg @IODETAILS@ @[id number]@ Medications: Continuous Meds[1] Scheduled Meds[2] Recent Labs 11/26/24 0420 11/26/24 0647 11/27/24 0315 11/28/24 0201 WBC 6.5 -- 5.9 4.6 HGB 11.6* 12.0 11.1* 10.5* PLT 101* -- 114* 118* Recent Labs 11/26/24 0420 11/27/24 0315 11/28/24 0201 NA 130* 136 134* K 5.6* 3.9 4.1 CL 102 103 105 CO2 24 24 22* BUN 18 16 26* CREATININE 3.67* 2.84* 3.52* GLUCOSE 108 110 97 Recent Labs 11/26/24 0420 11/27/24 0315 11/28/24 0201 AST 25 27 31 ALT 10 9 16 BILITOT 0.8 1.2* 0.8 ALKPHOS 81 83 82 No results found for: "TRIG", "HDL", "LDLCALC", "CHOL" No results found for: "PHART", "PO2ART", "[id number]" No results for input(s): "INR" in the last 72 hours. No results for input(s): "CKTOTAL", "CKMB", "TROPONINI" in the last 72 hours. No results for input(s): "DDIMER" in the last 72 hours. No results found for: "HGBA1C" No results found for: "TSH" Urine Culture: No results found for this or any previous visit. Objective: Vitals: BP 143/80 (BP Location: Right arm, Patient Position: Lying) Pulse 92 Temp 36.7 ?C (98.1 ?F) (Temporal) Resp 16 Ht 5' 7.99" (1.727 m) Wt 228 lb (103 kg) SpO2 95% BMI 34.68 kg/m? Pulse Ox: SpO2 Av % Min: 93 % Max: 100 % Physical Exam Vitals reviewed. Constitutional: General: He is not in acute distress. Appearance: He is not ill-appearing or toxic-appearing. HENT: Mouth/Throat: Mouth: Mucous membranes are moist. Eyes: Extraocular Movements: Extraocular movements intact. Cardiovascular: Rate and Rhythm: Normal rate. Pulmonary: Effort: Pulmonary effort is normal. Skin: General: Skin is dry. Neurological: Mental Status: He is alert and oriented to person, place, and time. Comments: Oriented but still encephalopathic Psychiatric: Mood and Affect: Mood normal. ANATOMY/TUBES/LINES: N/A Running Summary, Assessment, and Plan Acute, acute on chronic, unstable/uncontrolled chronic problems/diagnoses: Acute encephalopathy, unclear etiology -Avoiding narcotics and benzos. -Patient became delirious overnight on 11/26 -Delirium protocol in place -Is not tolerating the precedex -Scheduled Seroquel 25 mg nightly -Neurology consulted: Neuro suspect dialysis disequilibrium syndrome, nephro does not believe it was. MRI brain showing only chronic ischemic and atrophic changes. -Allan (more content not included)... [facility] 11-28-2024 Note PHYSICAL THERAPY [facility] Initial Evaluation Name/MRN: Franklin Burton ([id number]) Evaluation Date: 11/28/2024 Date of : 1945 Admission Date: 11/25/2024 5:45 AM Age: 79 y.o. Room/Bed: W3332/3[facility] A Discharge Recommendation: Long-Term Facility Equipment Needed: No Assessment IMPRESSION: Pt admitted for AMS at dialysis. He is currently Min-Mod assist for bed mobility, transfers and ambulation with the FWW. Pt reported feeling weaker than usual as well. Currently at risk for falls. Recommend disch to SNF. Admitting Diagnosis: Stroke-like symptoms Prognosis: fair Performance Deficits /Impairments: Decreased Functional Mobility, Decreased ADL status, Decreased Endurance, Decreased Balance, and Decreased High Level IADLs Decision Making: Medium Complexity Subjective Pt in the bed and agreeable to PT. RN OK with PT to see pt. Pt reported he is feeling better than yesterday but still weak. Pain: Pt denies any current pain. Past Medical History: Medical History[1] Past Surgical History: Surgical History[2] Admission Diagnosis: Patient Active Problem List Diagnosis Date Noted Stroke-like symptom 11/25/2024 Stroke-like symptoms 11/25/2024 Allergic rhinitis 08/07/2023 Chronic insomnia 08/07/2023 Chronic maxillary sinusitis 08/07/2023 Nasal obstruction 08/07/2023 Nasal septal perforation 08/07/2023 Sensorineural hearing loss (SNHL), bilateral 08/07/2023 Swelling of upper extremity 08/07/2023 Tinnitus, bilateral 08/07/2023 Tremor 08/07/2023 Malnutrition of mild degree (HCC) 03/09/2023 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 (HCC) 03/01/2023 Peritoneal dialysis catheter in situ (CMS/HCC) (HCC) 03/01/2023 Periumbilical abdominal pain 03/01/2023 Motion sickness 12/24/2022 Arthralgia 12/02/2022 Bronchitis 12/02/2022 Chest pain 12/02/2022 Chronic back pain 12/02/2022 Diarrhea 12/02/2022 Epistaxis 12/02/2022 Fever 12/02/2022 Finding of above normal blood pressure 12/02/2022 Hearing loss 12/02/2022 Heartburn 12/02/2022 Intermittent claudication (HCC) 12/02/2022 Obesity with body mass index 30 or greater 12/02/2022 Prediabetes 12/02/2022 Restless legs syndrome 12/02/2022 Viral upper respiratory tract infection 12/02/2022 Chronic neuropathic pain 11/28/2022 Pain, unspecified 10/25/2022 Ankle pain 08/29/2022 Other mechanical complication of surgically created arteriovenous fistula, initial encounter ([facility]) 08/21/2022 Coagulation defect, unspecified ([facility]) 08/20/2022 Abnormal echocardiography 08/05/2022 Allergy, unspecified, initial encounter 08/01/2022 Anaphylactic shock, unspecified, initial encounter 08/01/2022 ESRD (end stage renal disease) ([facility]) 08/01/2022 Anemia in chronic kidney disease 07/30/2022 Dialysis patient ([facility]) 07/30/2022 Noninfective gastroenteritis and colitis, unspecified 07/30/2022 Secondary hyperparathyroidism of renal origin ([facility]) 07/30/2022 Chronic systolic heart failure ([facility]) 06/03/2022 Neuropathy 03/26/2022 Heart failure ([facility]) 03/26/2022 Disease due to severe acute respiratory syndrome coronavirus 2 (SARS-CoV-2) 01/22/2022 Disorder of brain 01/22/2022 Fatigue 01/22/2022 Hyperkalemia 01/22/2022 Stage 3 chronic kidney disease ([facility]) 01/22/2022 Arteriovenous fistula (CMS/HCC) ([facility]) 07/25/2021 Stage 5 chronic kidney disease due to hypertension ([facility]) 02/20/2021 BPH with urinary obstruction 04/06/2020 Zach's granulomatosis with renal involvement ([facility]) 10/27/2019 Gastroesophageal reflux disease 10/21/2019 Hypertension 10/21/2019 Morbidly obese ([facility]) 10/21/2019 Iron deficiency anemia, unspecified 10/21/2019 Obstructive sleep apnea syndrome 10/20/2019 Avascular necrosis of bone of hip (CMS/HCC) (HCC) 07/09/2019 Abdominal hernia 07/09/2019 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 Fall Risk: Faustin Fall Risk Score: 60 (High Risk) Precautions/Restrictions: Fall Precautions Bed/chair alarm Family/Caregiver Present: none Overall Cognitive Status: WFL Overall Orientation Status: Oriented to Place, Oriented to Time, and Oriented to Person Vision: Not Assessed Hearing: normal Social/Functional History Patient admitted from home. Lives With: Spouse Type of Home: mobile home Home Layout: Single Level Home Home Access: Stairs to Enter with Rails (# of stairs: 4) Bathroom Shower/Tub: Toilet: Standard Home Equipment: front wheeled walker, rollator, cane, and wheelchair - ma (more content not included)... [facility] 11-28-2024 Plan of care note Problem: Knowledge Deficit Goal: Patient/family/caregiver demonstrates understanding of disease process, treatment plan, medications, and discharge instructions 11/28/2024554 by Lucero Coelho RN Outcome: Progressing 11/28/2024545 by Lucero Coelho RN Outcome: Progressing Problem: Neurological Deficit Goal: Neurological status is stable or improving 11/28/2024554 by Lucero Coelho RN Outcome: Progressing 11/28/2024545 by Lucero Coelho RN Outcome: Progressing Problem: Activity Intolerance/Impaired Mobility Goal: Mobility/activity is maintained at optimum level for patient 11/28/2024554 by Lucero Coelho RN Outcome: Progressing 11/28/2024545 by Lucero Coelho RN Outcome: Progressing Problem: Potential for Aspiration Goal: Non-ventilated patient's risk of aspiration is minimized 11/28/2024 0555 by Lucero Coelho RN Outcome: Progressing 11/28/2024 0546 by Lucero Coelho RN Outcome: Progressing Goal: Ventilated patient's risk of aspiration is minimized 11/28/2024 0555 by Lucero Coelho RN Outcome: Progressing 11/28/2024 0546 by Lucero Coelho RN Outcome: Progressing Problem: Nutrition Goal: Nutritional status is improving 11/28/2024 0555 by Lucero Coelho RN Outcome: Progressing 11/28/2024 0546 by Lucero Coelho RN Outcome: Progressing [facility] 11-28-2024 Plan of care note Problem: Knowledge Deficit Goal: Patient/family/caregiver demonstrates understanding of disease process, treatment plan, medications, and discharge instructions Outcome: Progressing Problem: Neurological Deficit Goal: Neurological status is stable or improving Outcome: Progressing Problem: Activity Intolerance/Impaired Mobility Goal: Mobility/activity is maintained at optimum level for patient Outcome: Progressing Problem: Potential for Aspiration Goal: Non-ventilated patient's risk of aspiration is minimized Outcome: Progressing Goal: Ventilated patient's risk of aspiration is minimized Outcome: Progressing Problem: Nutrition Goal: Nutritional status is improving Outcome: Progressing [facility] 11-27-2024 Note [facility] Respiratory Care Department Progress Note Comment or reasoning for refusal: Patient was seen in attempts to fulfill CPAP/BiPAP/AutoPAP order. Patient refused PAP therapy/study at this time. Patient was educated on medical need and reasoning for physician order to ensure patient was making an informed medical decision. All of the patient's questions were answered at this time and patient was informed that if the patient changes their mind regarding wearing PAP to hit their "call light" or inform their nurse to contact Respiratory. A second, consecutive night of refusing PAP therapy/study results in order completion in the EMR. If future CPAP/BiPAP/AutoPAP therapy or study is indicated please place another order in the EMR and the assigned Respiratory Therapist will reattempt to fulfill orders. Reason for refusal: Stated he does not wear one. X2 Thank you for involving Respiratory in the care of this patient, [facility] 11-27-2024 Note Nephrology Progress Note Patient: Franklin Burton Room number: T2/ A Date of Admit: 11/25/2024 LOS: 2 days Referring physician: Fawad Ruiz MD Outpatient Armored Car Guard: Tamia Marquez Assessment / Plan Franklin Burton is a 79 y.o. male with a past medical history of ESRD on HD MWF at [facility], GPA, DM type 2, HTN, HFrEF, BPH, GERD, ROYAL, OA, obesity, RLS, neuropathy, who was brought in from OSH due to AMS. Pt had HD and went home, then woke up agitated, feeling nauseated and confused, undergoing neurologic work up. Renal plan: 1-ESRD on HD MWF -Continue HD MWF, next 11/29 -he is on gabapentin, lyrica discontinued -would be careful with hydration, currently on NS @ 50 ml/hr, can discontinue 2-Anemia: -Hgb 11.1, above goal -hold JENNIFER 3-QAMAR: -last Ca was 8.9 and phosphorus 1.6 -not on binders -OK for gentle phos replacement per primary, will rise off HD 4-BP/volume status: -last BP was 114/57 -he is on metoprolol 25 mg bid -TTE EF 50%. pHTN present. IVC not visualized. -will investigate EDW 5-AMS: -neuro following -MRI brain without acute findings, chronic ischemic/atrophic changes -dialysis dysequilibrium syndrome usually seen with large swings in solutes such as with HD initiation or when restating after significant missed time, less likely between routine HD sessions 6-ID: -blood cx NGTD -not on Abs currently -he is on azathioprine for GPA, establishing with Dr. Palma ([facility]) next week Thank you for allowing us to participate in the care of this patient. Please call with any questions. Fawad Robison MD [facility] ([facility]) Office phone: [phone] Office fax: [phone] 11/27/2024 Subjective Patient was seen and examined this am. Per mentation worsened overnight. Given seroquel and precedex gtt. HD with 2L off yesterday, ran without issue. Medications Scheduled Meds:Scheduled Meds[1] Continuous Infusions:Continuous Meds[2] Review of Systems Unable to obtain Vital Signs Vitals: 11/27/24 0900 11/27/24 1000 11/27/24 1100 11/27/24 1200 BP: 118/62 105/56 (!) 109/49 114/57 Pulse: 75 76 69 62 Resp: (!) 29 (!) 27 25 20 Temp: TempSrc: SpO2: 97% 98% 99% 99% Weight: Height: Wt Readings from Last 3 Encounters: 11/25/24 103 kg (228 lb) 08/07/23 103 kg (228 lb) 01/09/23 96.6 kg (213 lb) Admit Wt: Weight: 103 kg (228 lb) Estimated body mass index is 34.68 kg/m? as calculated from the following: Height as of this encounter: 1.727 m (5' 7.99"). Weight as of this encounter: 103 kg (228 lb). Physical Exam General: obtunded, NAD HEENT: Sclera clear, EOMI, MMM, Nose/ears grossly normal Neck: Supple, trachea midline, no mass Chest: Normal excusion Heart: RRR, no rub/heave Lungs: Clear bilaterally, unlabored Abd: Soft, (+) BS, non-tender, non distended Ext: No edema Neuro: No tremor/myoclonus Skin: warm and dry, no rash LUE AVF with thrill and bruit present LABS Labs reviewed. Recent Labs 11/25/24 0702 11/26/24 0420 11/26/24 0647 11/27/24 0315 WBC 6.3 6.5 -- 5.9 HGB 11.3* 11.6* 12.0 11.1* HCT 35.2* 35.8* -- 33.7* MCV 95.9 95.5 -- 93.6 PLT 114* 101* -- 114* Recent Labs 11/25/24 0702 11/26/24 0420 11/27/24 0315 ALT 13 10 9 AST 22 25 27 ALKPHOS 81 81 83 BILITOT 0.6 0.8 1.2* Diagnostic Studies CXR 11/25: No acute cardiopulmonary process. The patient may proceed with MRI in regards to this exam. CT head 11/25: 1. No acute intracranial abnormality. 2. Diffuse cortical volume loss and chronic small vessel ischemic changes. [1] atorvastatin, 40 mg, Oral, Nightly azaTHIOprine, 50 mg, Oral, Lunch clopidogrel, 75 mg, Oral, Daily gabapentin, 200 mg, Oral, Nightly heparin, 5,000 Units, SubCUTAneous, 2 times per day metoprolol tartrate, 25 mg, Oral, BID pantoprazole, 40 mg, Oral, Nightly Or pantoprazole (ProtoNix) 40 mg in sodium chloride (PF) 0.9 % 10 mL injection, 40 mg, IntraVENous, Nightly QUEtiapine, 25 mg, Oral, Nightly senna-docusate sodium, 2 tablet, Oral, Daily sodium chloride 0.9%, 5-40 mL, IntraVENous, q12h tamsulosin, 0.4 mg, Oral, Daily [2] sodium chloride, 50 mL/hr, Last Rate: 50 mL/hr (11/27/24 0211) [facility] 11-27-2024 Note [facility] [address] [place] [address] CONTINUOUS LONG-TERM VIDEO EEG MONITORING REPORT Patient Name: Franklin Burton : 1945 Date of Study: 11/27/2024 Duration Recorded: 13:50:00 EEG#: [id number] STAMP MAKER: Alvaro HARDY PROVIDER REQUESTING STUDY: Erasmo Singh DO REASON FOR EXAM: Evaluate for seizures DIAGNOSIS TAG: Encephalopathy NOS (ENC-NOS) HISTORY: Franklin Burton is a 79 y.o. male with history of Franklin is a 79 y.o. male with past medical history below who was transferred from outside hospital for altered mentation. Patient not able to provide any history. Family at bedside. Reported that a few hours after dialysis patient became confused. Not coherent. Family reports having same episodes previously as well after dialysis. Which seems to have improved much earlier rather than this time. No fever. No recent travel no sick contacts family has not noticed any seizures. Patient evaluated at outside hospital and transferred to [facility] for further evaluation management. MEDICATIONS: Current Medications[1] TECHNICAL ASPECTS: This continuous scalp EEG study with video was carried out at [facility]. Scalp electrodes were positioned in person by an cytogenetic technologist, following patient education, according to the 10-20 International system of electrode placement and maintained for integrity and quality of the recording. An abbreviated set of electrodes was placed which included FP1/2, T7/8, C3/4, O1/2, Fz-Cz-Pz. EEG data with video was recorded continuously and digitally stored. The cytogenetic technologist reviewed all automated detections and manual events and prepared the data for archiving and provider review. Referential and bipolar montages were used for review. TECHNOLOGIST NOTES: No skull or scalp defects were observed. This video-EEG monitoring was continuously monitored, 4 patients per technologist. BACKGROUND ACTIVITY: Posterior background activity: A continuous organized 7-8 Hz, 10-25 uV rhythm was seen over the posterior head regions bilaterally. Beta range: Diffuse alpha-beta range activity (8-25 Hz, 10-20 uV) was seen. Sleep: Stage N2 sleep was reached as evidenced by the appearance of vertex waves and sleep spindles seen over the fronto-central head regions bilaterally. Normal Variants: None 00:00:37 -Background activity (AP Bipolar, LFF=1Hz, HFF=70Hz, Sens=7 uV/mm) SLOWING: Continuous (greater than 90% of the recording) diffuse delta range (6.5-7.5 Hz, 10-35 uV) irregular to semirhythmical slow wave activity was seen non-responsive to stimulation. INTERICTAL EPILEPTIFORM ACTIVITY: No epileptiform activity was seen. ICTAL ACTIVITY: No ictal activity was seen. NON-EPILEPTIC EVENTS: None. ACTIVATION PROCEDURES: Photic stimulation was not performed. Hyperventilation was not performed. IMPRESSION AND ACTIONS TAKEN: This continuous EEG with video is abnormal. Continuous diffuse mild slowing is seen not responsive to stimulation. Sleep architecture is observed. Posterior dominant rhythms are seen during wakefulness. No interictal epileptiform activity or seizures are observed. The findings are supportive of a stable mild global encephalopathy non-specific as to etiology. Compared with the previous recording, no change in the background rhythms are appreciated. The findings were communicated to the neurocritical care service (Dr. Emmanuelle Joseph) at 13:15 on 11/27/2024. Will disconnect vEEG monitoring. Joselito Rehman MD PhD Epilepsy Attending [1] Current Facility-Administered Medications Medication Dose Route Frequency Provider Last Rate Last Admin acetaminophen (Tylenol) tablet 650 mg 650 mg Oral q6h PRN Erasmo Singh, DO 650 mg at 11/26/241999 Or acetaminophen (Tylenol) suppository 650 mg 650 mg Rectal q6h PRN Erasmo Singh, DO atorvastatin (Lipitor) tablet 40 mg 40 mg Oral Nightly Erasmo Singh, DO 40 mg at 11/26/241999 azaTHIOprine (Imuran) tablet 50 mg 50 mg Oral Lunch Erasmo Singh, DO bisacodyl (Dulcolax) suppository 10 mg 10 mg Rectal Daily PRN Erasmo Singh, DO carboxymethylcellulose PF (Refresh Plus) 0.5 % ophthalmic solution 1 drop 1 drop Both Eyes 4x daily PRN Cristi Dasilva MD clopidogrel (Plavix) tablet 75 mg 75 mg Oral Daily Erasmo Singh, DO 75 mg at 11/26/24 1015 dextrose 5 % infusion 100 mL/hr IntraVENous PRN Erasmo Singh, dextrose 50 % solution 12.5 g 12.5 g IntraVENous PRN Erasmo Singh, DO gabapentin (Neurontin) capsule 200 mg 200 mg Oral Nightly Erasmo Singh, DO 200 mg at 11/26/241999 glucagon (human recombinant) injection 1 mg 1 mg IntraMUSCular PRN Erasmo Singh, DO glucose oral gel 15 g 15 g Oral PRN Erasmo Singh, heparin injection 5,000 Units 5,000 Units SubCUTAneous 2 time (more content not included)... [facility] 11-27-2024 Procedure note Associated Ord er(s): EEG CONTINUOUS MONITORING Images from the original note were not included. [facility] [address] [place] [address] CONTINUOUS LONG-TERM VIDEO EEG MONITORING REPORT Patient Name: Franklin Burton : 1945 Date of Study: 11/27/2024 Duration Recorded: 13:50:00 EEG#: [id number] STAMP MAKER: Alvaro HARYD PROVIDER REQUESTING STUDY: Erasmo Singh DO REASON FOR EXAM: Evaluate for seizures DIAGNOSIS TAG: Encephalopathy NOS (ENC-NOS) HISTORY: Franklin Burton is a 79 y.o. male with history of Franklin is a 79 y.o. male with past medical history below who was transferred from outside hospital for altered mentation. Patient not able to provide any history. Family at bedside. Reported that a few hours after dialysis patient became confused. Not coherent. Family reports having same episodes previously as well after dialysis. Which seems to have improved much earlier rather than this time. No fever. No recent travel no sick contacts family has not noticed any seizures. Patient evaluated at outside hospital and transferred to [facility] for further evaluation management. MEDICATIONS: Current Medications[1] TECHNICAL ASPECTS: This continuous scalp EEG study with video was carried out at [facility]. Scalp electrodes were positioned in person by an cytogenetic technologist, following patient education, according to the 10-20 International system of electrode placement and maintained for integrity and quality of the recording. An abbreviated set of electrodes was placed which included FP1/2, T7/8, C3/4, O1/2, Fz-Cz-Pz. EEG data with video was recorded continuously and digitally stored. The cytogenetic technologist reviewed all automated detections and manual events and prepared the data for archiving and provider review. Referential and bipolar montages were used for review. TECHNOLOGIST NOTES: No skull or scalp defects were observed. This video-EEG monitoring was continuously monitored, 4 patients per technologist. BACKGROUND ACTIVITY: Posterior background activity: A continuous organized 7-8 Hz, 10-25 uV rhythm was seen over the posterior head regions bilaterally. Beta range: Diffuse alpha-beta range activity (8-25 Hz, 10-20 uV) was seen. Sleep: Stage N2 sleep was reached as evidenced by the appearance of vertex waves and sleep spindles seen over the fronto-central head regions bilaterally. Normal Variants: None 00:00:37 -Background activity (AP Bipolar, LFF=1Hz, HFF=70Hz, Sens=7 uV/mm) SLOWING: Continuous (greater than 90% of the recording) diffuse delta range (6.5-7.5 Hz, 10-35 uV) irregular to semirhythmical slow wave activity was seen non-responsive to stimulation. INTERICTAL EPILEPTIFORM ACTIVITY: No epileptiform activity was seen. ICTAL ACTIVITY: No ictal activity was seen. NON-EPILEPTIC EVENTS: None. ACTIVATION PROCEDURES: Photic stimulation was not performed. Hyperventilation was not performed. IMPRESSION AND ACTIONS TAKEN: This continuous EEG with video is abnormal. Continuous diffuse mild slowing is seen not responsive to stimulation. Sleep architecture is observed. Posterior dominant rhythms are seen during wakefulness. No interictal epileptiform activity or seizures are observed. The findings are supportive of a stable mild global encephalopathy non-specific as to etiology. Compared with the previous recording, no change in the background rhythms are appreciated. The findings were communicated to the neurocritical care service (Dr. Emmanuelle Joseph) at 13:15 on 11/27/2024. Will disconnect vEEG monitoring. Joselito Rehman MD PhD Epilepsy Attending [1] Current Facility-Administered Medications Medication Dose Route Frequency Provider Last Rate Last Admin acetaminophen (Tylenol) tablet 650 mg 650 mg Oral q6h PRN Erasmo Singh DO 650 mg at 11/26/241999 Or acetaminophen (Tylenol) suppository 650 mg 650 mg Rectal q6h PRN Erasmo Singh DO atorvastatin (Lipitor) tablet 40 mg 40 mg Oral Nightly Erasmo Singh DO 40 mg at 11/26/241999 azaTHIOprine (Imuran) tablet 50 mg 50 mg Oral Lunch Erasmo Singh DO bisacodyl (Dulcolax) suppository 10 mg 10 mg Rectal Daily PRN Erasmo Singh DO carboxymethylcellulose PF (Refresh Plus) 0.5 % ophthalmic solution 1 drop 1 drop Both Eyes 4x daily PRN Cristi Dasilva MD clopidogrel (Plavix) tablet 75 mg 75 mg Oral Daily Erasmo Singh DO 75 mg at 11/26/24 1015 dextrose 5 % infusion 100 mL/hr IntraVENous PRN Erasmo Singh DO dextrose 50 % solution 12.5 g 12.5 g IntraVENous PRN Erasmo Singh DO gabapentin (Neurontin) capsule 200 mg 200 mg Oral Nightly Erasmo Singh DO 200 mg at 11/26/241999 glucagon (human recombinant) injection 1 mg 1 mg IntraMUSCular PRN Erasmo Singh DO glucose oral gel 15 g 15 g Oral PRN Erasmo Singh DO heparin injection 5,000 Units 5,000 Units SubCUTAneous 2 times per day Erasmo Singh DO 5,000 Units at 11/27/24 0833 labetalol (Normodyne,Trandate) injection 10 mg 10 mg IntraVENous q10 min PRN Erasmo Singh DO metoprolol tartrate (Lopressor) tablet 25 mg 25 mg Oral BID Erasmo Singh DO 25 mg at 11/26/241999 naloxone (Narcan) injection 0.4 mg 0.4 mg IntraVENous q5 min PRN Erasmo Singh DO ondansetron ODT (Zofran-ODT) disintegrating tablet 4 mg 4 mg Oral q8h PRN Erasmo Singh DO 4 mg at 11/26/242122 Or ondansetron (Zofran) injection 4 mg 4 mg IntraVENous q6h PRN Erasmo Singh DO pantoprazole (ProtoNix) EC tablet 40 mg 40 mg Oral Nightly Cristi Dasilva MD 40 mg at 11/26/241999 Or pantoprazole (ProtoNix) 40 mg in sodium chloride (PF) 0.9 % 10 mL injection 40 mg IntraVENous Nightly Cristi Dasilva MD polyethylene glycol (PEG) 3350 (Miralax) packet 17 g 17 g Oral Daily PRN Erasmo Singh DO QUEtiapine (SEROquel) tablet 25 mg 25 mg Oral Nightly Janak Jensen DO senna-docusate sodium (Senokot-S) 8.6-50 MG tablet 2 tablet 2 tablet Oral Daily Christopher Alexis DO 2 tablet at 11/26/242122 simethicone (Mylicon) chewable tablet 80 mg 80 mg Oral 4x daily PRN Christopher Alexis DO sodium chloride 0.9 % infusion 5-250 mL/hr IntraVENous PRN Erasmo Singh DO sodium chloride 0.9 % infusion 50 mL/hr IntraVENous Continuous Erasmo Singh DO 50 mL/hr at 11/27/24210 50 mL/hr at 07/12/25 0211 sodium chloride 0.9% (NS) flush 5-40 mL 5-40 mL IntraVENous q12h Erasmo Singh DO sodium chloride 0.9% (NS) flush 5-40 mL 5-40 mL IntraVENous PRN Erasmo Singh DO tamsulosin (Flomax) 24 hr capsule 0.4 mg 0.4 mg Oral Daily Erasmo Singh DO 0.4 mg at 11/26/24 1015 [facility] [employer] Work Phone: 11-27-2024 Procedure note Associated Ord er(s): EEG CONTINUOUS MONITORING Images from the original note were not included. [facility] [address] [place] [address] CONTINUOUS LONG-TERM VIDEO EEG MONITORING REPORT Patient Name: Franklin Burton : 1945 Date of Study: 11/27/2024 Duration Recorded: 13:50:00 EEG#: [id number] STAMP MAKER: Alvaro HARDY PROVIDER REQUESTING STUDY: Erasmo Singh DO REASON FOR EXAM: Evaluate for seizures DIAGNOSIS TAG: Encephalopathy NOS (ENC-NOS) HISTORY: Franklin Burton is a 79 y.o. male with history of Franklin is a 79 y.o. male with past medical history below who was transferred from outside hospital for altered mentation. Patient not able to provide any history. Family at bedside. Reported that a few hours after dialysis patient became confused. Not coherent. Family reports having same episodes previously as well after dialysis. Which seems to have improved much earlier rather than this time. No fever. No recent travel no sick contacts family has not noticed any seizures. Patient evaluated at outside hospital and transferred to [facility] for further evaluation management. MEDICATIONS: Current Medications[1] TECHNICAL ASPECTS: This continuous scalp EEG study with video was carried out at [facility]. Scalp electrodes were positioned in person by an cytogenetic technologist, following patient education, according to the 10-20 International system of electrode placement and maintained for integrity and quality of the recording. An abbreviated set of electrodes was placed which included FP1/2, T7/8, C3/4, O1/2, Fz-Cz-Pz. EEG data with video was recorded continuously and digitally stored. The cytogenetic technologist reviewed all automated detections and manual events and prepared the data for archiving and provider review. Referential and bipolar montages were used for review. TECHNOLOGIST NOTES: No skull or scalp defects were observed. This video-EEG monitoring was continuously monitored, 4 patients per technologist. BACKGROUND ACTIVITY: Posterior background activity: A continuous organized 7-8 Hz, 10-25 uV rhythm was seen over the posterior head regions bilaterally. Beta range: Diffuse alpha-beta range activity (8-25 Hz, 10-20 uV) was seen. Sleep: Stage N2 sleep was reached as evidenced by the appearance of vertex waves and sleep spindles seen over the fronto-central head regions bilaterally. Normal Variants: None 00:00:37 -Background activity (AP Bipolar, LFF=1Hz, HFF=70Hz, Sens=7 uV/mm) SLOWING: Continuous (greater than 90% of the recording) diffuse delta range (6.5-7.5 Hz, 10-35 uV) irregular to semirhythmical slow wave activity was seen non-responsive to stimulation. INTERICTAL EPILEPTIFORM ACTIVITY: No epileptiform activity was seen. ICTAL ACTIVITY: No ictal activity was seen. NON-EPILEPTIC EVENTS: None. ACTIVATION PROCEDURES: Photic stimulation was not performed. Hyperventilation was not performed. IMPRESSION AND ACTIONS TAKEN: This continuous EEG with video is abnormal. Continuous diffuse mild slowing is seen not responsive to stimulation. Sleep architecture is observed. Posterior dominant rhythms are seen during wakefulness. No interictal epileptiform activity or seizures are observed. The findings are supportive of a stable mild global encephalopathy non-specific as to etiology. Compared with the previous recording, no change in the background rhythms are appreciated. The findings were communicated to the neurocritical care service (Dr. Emmanuelle Joseph) at 13:15 on 11/27/2024. Will disconnect vEEG monitoring. Joselito Rehman MD PhD Epilepsy Attending [1] Current Facility-Administered Medications Medication Dose Route Frequency Provider Last Rate Last Admin acetaminophen (Tylenol) tablet 650 mg 650 mg Oral q6h PRN Erasmo Singh DO 650 mg at 11/26/241999 Or acetaminophen (Tylenol) suppository 650 mg 650 mg Rectal q6h PRN Erasmo Singh DO atorvastatin (Lipitor) tablet 40 mg 40 mg Oral Nightly Erasmo Singh DO 40 mg at 11/26/241999 azaTHIOprine (Imuran) tablet 50 mg 50 mg Oral Lunch Erasmo Singh DO bisacodyl (Dulcolax) suppository 10 mg 10 mg Rectal Daily PRN Erasmo Singh DO carboxymethylcellulose PF (Refresh Plus) 0.5 % ophthalmic solution 1 drop 1 drop Both Eyes 4x daily PRN Cristi Dasilva MD clopidogrel (Plavix) tablet 75 mg 75 mg Oral Daily Erasmo Singh DO 75 mg at 11/26/24 1015 dextrose 5 % infusion 100 mL/hr IntraVENous PRN Erasmo Singh DO dextrose 50 % solution 12.5 g 12.5 g IntraVENous PRN Erasmo Singh DO gabapentin (Neurontin) capsule 200 mg 200 mg Oral Nightly Erasmo Singh DO 200 mg at 11/26/241999 glucagon (human recombinant) injection 1 mg 1 mg IntraMUSCular PRN Erasmo Singh DO glucose oral gel 15 g 15 g Oral PRN Erasmo Singh DO heparin injection 5,000 Units 5,000 Units SubCUTAneous 2 times per day Erasmo Singh DO 5,000 Units at 11/27/24 0833 labetalol (Normodyne,Trandate) injection 10 mg 10 mg IntraVENous q10 min PRN Erasmo Singh DO metoprolol tartrate (Lopressor) tablet 25 mg 25 mg Oral BID Erasmo Singh DO 25 mg at 11/26/241999 naloxone (Narcan) injection 0.4 mg 0.4 mg IntraVENous q5 min PRN Erasmo Singh DO ondansetron ODT (Zofran-ODT) disintegrating tablet 4 mg 4 mg Oral q8h PRN Erasmo Singh DO 4 mg at 11/26/242122 Or ondansetron (Zofran) injection 4 mg 4 mg IntraVENous q6h PRN Erasmo Singh DO pantoprazole (ProtoNix) EC tablet 40 mg 40 mg Oral Nightly Cristi Dasilva MD 40 mg at 11/26/241999 Or pantoprazole (ProtoNix) 40 mg in sodium chloride (PF) 0.9 % 10 mL injection 40 mg IntraVENous Nightly Cristi Dasilva MD polyethylene glycol (PEG) 3350 (Miralax) packet 17 g 17 g Oral Daily PRN Eramso Singh DO QUEtiapine (SEROquel) tablet 25 mg 25 mg Oral Nightly Janak Jensen DO senna-docusate sodium (Senokot-S) 8.6-50 MG tablet 2 tablet 2 tablet Oral Daily Christopher Alexis DO 2 tablet at 11/26/243 simethicone (Mylicon) chewable tablet 80 mg 80 mg Oral 4x daily PRN Christopher Alexis DO sodium chloride 0.9 % infusion 5-250 mL/hr IntraVENous PRN Erasmo Singh DO sodium chloride 0.9 % infusion 50 mL/hr IntraVENous Continuous Erasmo Singh DO 50 mL/hr at 11/27/24 0211 50 mL/hr at 11/27/24 0211 sodium chloride 0.9% (NS) flush 5-40 mL 5-40 mL IntraVENous q12h Erasmo Singh DO sodium chloride 0.9% (NS) flush 5-40 mL 5-40 mL IntraVENous PRN Erasmo Singh DO tamsulosin (Flomax) 24 hr capsule 0.4 mg 0.4 mg Oral Daily Erasmo Singh DO 0.4 mg at 11/26/24 1015 Associated Order(s): EEG CONTINUOUS MONITORING Images from the original note were not included. [facility] [address] [place] [id number] CONTINUOUS LONG-TERM VIDEO EEG MONITORING REPORT Patient Name: Franklin Burton : 1945 Date of Study: 11/26/2024 Duration Recorded: 18:45:43 EEG#: [id number] STAMP MAKER: Alvaro HARDY PROVIDER REQUESTING STUDY: Erasmo Singh DO REASON FOR EXAM: Evaluate for seizures DIAGNOSIS TAG: Encephalopathy NOS (ENC-NOS) HISTORY: Franklin Burton is a 79 y.o. male with history of Franklin is a 79 y.o. male with past medical history below who was transferred from outside hospital for altered mentation. Patient not able to provide any history. Family at bedside. Reported that a few hours after dialysis patient became confused. Not coherent. Family reports having same episodes previously as well after dialysis. Which seems to have improved much earlier rather than this time. No fever. No recent travel no sick contacts family has not noticed any seizures. Patient evaluated at outside hospital and transferred to [facility] for further evaluation management. MEDICATIONS: Current Medications[1] TECHNICAL ASPECTS: This continuous scalp EEG study with video was carried out at [facility]. Scalp electrodes were positioned in person by an cytogenetic technologist, following patient education, according to the 10-20 International system of electrode placement and maintained for integrity and quality of the recording. An abbreviated set of electrodes was placed which included FP1/2, T7/8, C3/4, O1/2, Fz-Cz-Pz. EEG data with video was recorded continuously and digitally stored. The cytogenetic technologist reviewed all automated detections and manual events and prepared the data for archiving and provider review. Referential and bipolar montages were used for review. TECHNOLOGIST NOTES: No skull or scalp defects were observed. This video-EEG monitoring was continuously monitored, 4 patients per technologist. BACKGROUND ACTIVITY: Posterior background activity: A continuous organized 7-8 Hz, 10-25 uV rhythm was seen over the posterior head regions bilaterally. Beta range: Diffuse alpha-beta range activity (8-25 Hz, 10-20 uV) was seen. Sleep: Stage N2 sleep was reached as evidenced by the appearance of vertex waves and sleep spindles seen over the fronto-central head regions bilaterally. Normal Variants: None 09:06:38 -Background activity (Referential to average, LFF=1Hz, HFF=30Hz, Sens=7 uV/mm) SLOWING: Continuous (greater than 90% of the recording) diffuse delta range (6.5-7.5 Hz, 10-35 uV) irregular to semirhythmical slow wave activity was seen non-responsive to stimulation. INTERICTAL EPILEPTIFORM ACTIVITY: No epileptiform activity was seen. ICTAL ACTIVITY: No ictal activity was seen. NON-EPILEPTIC EVENTS: None. ACTIVATION PROCEDURES: Photic stimulation was not performed. Hyperventilation was not performed. IMPRESSION AND ACTIONS TAKEN: This continuous EEG with video is abnormal. Continuous diffuse mild slowing is seen non-responsive to stimulation. Sleep architecture is observed. Posterior dominant rhythms are seen during wakefulness. No interictal epileptiform activity or seizures are observed. The findings are supportive of an improving mild global encephalopathy non-specific as to etiology. Compared with the previous recording, there is a notable improvement on the degree of encephalopathy. Anam Guerrier, PhD Clinical Neurophysiologist Joselito Rehman MD PhD Epilepsy Attending [1] Current Facility-Administered Medications Medication Dose Route Frequency Provider Last Rate Last Admin acetaminophen (Tylenol) tablet 650 mg 650 mg Oral q6h PRN Erasmo Singh DO Or acetaminophen (Tylenol) suppository 650 mg 650 mg Rectal q6h PRN Erasmo Singh DO atorvastatin (Lipitor) tablet 40 mg 40 mg Oral Nightly Erasmo Singh DO azaTHIOprine (Imuran) tablet 50 mg 50 mg Oral Lunch Erasmo Singh DO bisacodyl (Dulcolax) suppository 10 mg 10 mg Rectal Daily PRN Erasmo Singh DO clopidogrel (Plavix) tablet 75 mg 75 mg Oral Daily Erasmo Singh DO 75 mg at 11/26/24 1015 dexmedeTOMIDine in NS (Precedex) 400 mcg in 100 mL (4 mcg/mL) infusion 0.1-1.5 mcg/kg/hr IntraVENous Continuous Erasmo Singh DO Stopped at 11/26/24 0438 dextrose 5 % infusion 100 mL/hr IntraVENous PRN Erasmo Singh DO dextrose 50 % solution 12.5 g 12.5 g IntraVENous PRN Erasmo Singh DO gabapentin (Neurontin) capsule 200 mg 200 mg Oral Nightly Erasmo Singh DO glucagon (human recombinant) injection 1 mg 1 mg IntraMUSCular PRN Erasmo Singh DO glucose oral gel 15 g 15 g Oral PRN Erasmo Singh DO heparin injection 5,000 Units 5,000 Units SubCUTAneous 2 times per day Erasmo Singh DO 5,000 Units at 11/26/24 1014 labetalol (Normodyne,Trandate) injection 10 mg 10 mg IntraVENous q10 min PRN Erasmo Singh DO metoprolol tartrate (Lopressor) tablet 25 mg 25 mg Oral BID Erasmo Singh DO naloxone (Narcan) injection 0.4 mg 0.4 mg IntraVENous q5 min PRN Erasmo Singh DO ondansetron ODT (Zofran-ODT) disintegrating tablet 4 mg 4 mg Oral q8h PRN Erasmo Singh DO Or ondansetron (Zofran) injection 4 mg 4 mg IntraVENous q6h PRN Erasmo Singh DO pantoprazole (ProtoNix) EC tablet 40 mg 40 mg Oral Nightly Cristi Dasilva MD Or pantoprazole (ProtoNix) 40 mg in sodium chloride (PF) 0.9 % 10 mL injection 40 mg IntraVENous Nightly Cristi Dasilva MD polyethylene glycol (PEG) 3350 (Miralax) packet 17 g 17 g Oral Daily PRN Erasmo Singh DO sodium chloride 0.9 % infusion 5-250 mL/hr IntraVENous PRN Erasmo Singh DO sodium chloride 0.9 % infusion 50 mL/hr IntraVENous Continuous Erasmo Singh DO 50 mL/hr at 11/25/24 0702 50 mL/hr at 11/25/24 0702 sodium chloride 0.9% (NS) flush 5-40 mL 5-40 mL IntraVENous q12h Erasmo Singh DO sodium chloride 0.9% (NS) flush 5-40 mL 5-40 mL IntraVENous PRN Erasmo Singh DO tamsulosin (Flomax) 24 hr capsule 0.4 mg 0.4 mg Oral Daily Earsmo Singh DO 0.4 mg at 11/26/24 1015 Associated Order(s): EEG CONTINUOUS MONITORING Images from the original note were not included. [facility] [address] [place] [address] CONTINUOUS LONG-TERM VIDEO EEG MONITORING REPORT Patient Name: Franklin Burton : 1945 Date of Study: 11/25/2024 Duration Recorded: 02:14:39 EEG#: [id number] STAMP MAKER: Alvaro HARDY PROVIDER REQUESTING STUDY: Erasmo Singh DO REASON FOR EXAM: Evaluate for seizures DIAGNOSIS TAG: Encephalopathy NOS (ENC-NOS) HISTORY: Franklin Burton is a 79 y.o. male with history of Franklin is a 79 y.o. male with past medical history below who was transferred from outside hospital for altered mentation. Patient not able to provide any history. Family at bedside. Reported that a few hours after dialysis patient became confused. Not coherent. Family reports having same episodes previously as well after dialysis. Which seems to have improved much earlier rather than this time. No fever. No recent travel no sick contacts family has not noticed any seizures. Patient evaluated at outside hospital and transferred to [facility] for further evaluation management. MEDICATIONS: Current Medications[1] TECHNICAL ASPECTS: This continuous scalp EEG study with video was carried out at [facility]. Scalp electrodes were positioned in person by an cytogenetic technologist, following patient education, according to the 10-20 International system of electrode placement and maintained for integrity and quality of the recording. An abbreviated set of electrodes was placed which included FP1/2, T7/8, C3/4, O1/2, Fz-Cz-Pz. EEG data with video was recorded continuously and digitally stored. The cytogenetic technologist reviewed all automated detections and manual events and prepared the data for archiving and provider review. Referential and bipolar montages were used for review. TECHNOLOGIST NOTES: No skull or scalp defects were observed. This video-EEG monitoring was continuously monitored, 4 patients per technologist. BACKGROUND ACTIVITY: Posterior background activity: No observable posterior dominant rhythm was seen. Beta range: Diffuse alpha-beta range activity (8-25 Hz, 10-20 uV) was seen, at times reminiscent of sleep architecture. Sleep: No clearcut sleep architecture was observed. Normal Variants: None SLOWING: Continuous (greater than 90% of the recording) diffuse delta range (0.5-7 Hz, 20-45 uV) irregular to semirhythmical slow wave activity is seen These features are non-responsive to stimulation. 21:56:05 -Continuous slowing, generalized + diffuse alpha range activuty (AP Bipolar, LFF=1Hz, HFF=30Hz, Sens=5 uV/mm) INTERICTAL EPILEPTIFORM ACTIVITY: No epileptiform activity was seen. ICTAL ACTIVITY: No ictal activity was seen. NON-EPILEPTIC EVENTS: None. ACTIVATION PROCEDURES: Photic stimulation was not performed. Hyperventilation was not performed. IMPRESSION AND ACTIONS TAKEN: This continuous EEG with video is abnormal. Continuous diffuse moderate to marked slowing is seen non-responsive to stimulation. No interictal epileptiform activity or seizures are observed. The findings are supportive of a [id number] global encephalopathy non-specific as to etiology. Anam Guerrier, PhD Clinical Neurophysiologist Joselito Rehman MD PhD Epilepsy Attending [1] Current Facility-Administered Medications Medication Dose Route Frequency Provider Last Rate Last Admin acetaminophen (Tylenol) tablet 650 mg 650 mg Oral q6h PRN Erasmo Singh DO Or acetaminophen (Tylenol) suppository 650 mg 650 mg Rectal q6h PRN Erasmo Singh DO atorvastatin (Lipitor) tablet 40 mg 40 mg Oral Nightly Erasmo Sinhg DO azaTHIOprine (Imuran) tablet 50 mg 50 mg Oral Lunch Erasmo Singh DO bisacodyl (Dulcolax) suppository 10 mg 10 mg Rectal Daily PRN Erasmo Singh DO clopidogrel (Plavix) tablet 75 mg 75 mg Oral Daily Erasmo Singh DO dexmedeTOMIDine in NS (Precedex) 400 mcg in 100 mL (4 mcg/mL) infusion 0.1-1.5 mcg/kg/hr IntraVENous Continuous Erasmo Singh DO 15.45 mL/hr at 11/25/242240 0.6 mcg/kg/hr at 11/25/242240 dextrose 5 % infusion 100 mL/hr IntraVENous PRN Erasmo Singh DO dextrose 50 % solution 12.5 g 12.5 g IntraVENous PRN Erasmo Singh DO gabapentin (Neurontin) capsule 200 mg 200 mg Oral Nightly Erasmo Singh DO glucagon (human recombinant) injection 1 mg 1 mg IntraMUSCular PRN Erasmo Singh DO glucose oral gel 15 g 15 g Oral PRN Erasmo Singh DO heparin injection 5,000 Units 5,000 Units SubCUTAneous 2 times per day Erasmo Singh DO 5,000 Units at 11/25/242107 labetalol (Normodyne,Trandate) injection 10 mg 10 mg IntraVENous q10 min PRN Erasmo Singh DO metoprolol tartrate (Lopressor) tablet 25 mg 25 mg Oral BID Erasmo Singh DO naloxone (Narcan) injection 0.4 mg 0.4 mg IntraVENous q5 min PRN Erasmo Singh DO ondansetron ODT (Zofran-ODT) disintegrating tablet 4 mg 4 mg Oral q8h PRN Erasmo Singh DO Or ondansetron (Zofran) injection 4 mg 4 mg IntraVENous q6h PRN Erasmo Singh DO polyethylene glycol (PEG) 3350 (Miralax) packet 17 g 17 g Oral Daily PRN Erasmo Singh DO sodium chloride 0.9 % infusion 5-250 mL/hr IntraVENous PRN Erasmo Singh DO sodium chloride 0.9 % infusion 50 mL/hr IntraVENous Continuous Erasmo Singh DO 50 mL/hr at 11/25/24 0702 50 mL/hr at 11/25/24 0702 sodium chloride 0.9% (NS) flush 5-40 mL 5-40 mL IntraVENous q12h Erasmo Singh DO sodium chloride 0.9% (NS) flush 5-40 mL 5-40 mL IntraVENous PRN Erasmo Singh DO tamsulosin (Flomax) 24 hr capsule 0.4 mg 0.4 mg Oral Daily Erasmo Singh DO 2nd attempt to complete routine EEG, pt uncooperative. Will attempt again tomorrow Associated Order(s): EEG I attempted to complete routine EEG, pt thrashing around in bed, family currently in room and does not feel patient will tolerate testing at this time. Please re-order when patient is more cooperative documented in this encounter [facility] 11-26-2024 Note Family Communication Spoke with and daughter in the room. Updated them on neurology's thoughts that this is dialysis disequilibrium syndrome and attempted to explain what this is. Informed that we are stopping the EEG due to no seizure activity and we will call and update with MRI brain results. [facility] 11-26-2024 Note [facility] Respiratory Care Department Progress Note Patient was seen in attempts to fulfill CPAP/BiPAP/AutoPAP order. Patient refused PAP therapy/study at this time. Patient was educated on medical need and reasoning for physician order to ensure patient was making an informed medical decision. All of the patient's questions were answered at this time and patient was informed that if the patient changes their mind regarding wearing PAP to hit their "call light" or inform their nurse to contact Respiratory. A second, consecutive night of refusing PAP therapy/study results in order completion in the EMR. If future CPAP/BiPAP/AutoPAP therapy or study is indicated please place another order in the EMR and the assigned Respiratory Therapist will reattempt to fulfill orders. Reason for refusal: Pt states he hasn't worn PAP in yrs & doesn't want to start now Thank you for involving Respiratory in the care of this patient, .3 [facility] 11-26-2024 Nurse Note 2L removed with tx, less than 10min hold time per site, dressing c/d/I 11/26/24 1440 Vital Signs BP 147/77 During Hemodialysis Assessment Blood Flow Rate (mL/min) 400 mL/min Arterial Pressure (mmHg) -140 mmHg Venous Pressure (mmHg) 170 mmHg TMP 70 DFR 500 Intra-Hemodialysis Comments LVSD, HD complpleted, blood rinsed back without diffiuclty, dressing c/d/i Access Visible Yes Hemodialysis Arteriovenous Fistula 11/25/24 Left Upper arm Placement Date/Time: 11/25/24 (c) 1840 Earliest Known Present: 11/25/24 Orientation: Left Access Location: Upper arm AV Fistula Thrill present;Bruit present Site Assessment Clean;Dry;Intact Status Deaccessed Dressing Status Clean, dry & intact Dressing Intervention New dressing Post-Hemodialysis Assessment Post-Treatment Procedures Blood returned;Access bleeding time < 10 minutes Machine Disinfection Process Exterior Machine Disinfection Rinseback Volume (mL) 200 mL Total Liters Processed (L/min) 80.7 L/min Dialyzer Clearance Lightly streaked Hemodialysis Intake (ml) 400 ml Hemodialysis Output (ml) 2400 ml NET Removed (ml) 2000 ml Tolerated Treatment Good Patient Response to Treatment stable condition Physician Notified No Patient Disposition Remain in ICU/ED $ IP Hemodialysis Charge Hemodialysis [facility] 11-26-2024 Note Formatting of this n ote might be different from the original. Care Management Progress Note Transferred to T2 ICU for aggitation, precedex gtt, iHD baseline MWF - nephrology following. PT/OT pending. Planned Discharge Disposition: Other (Comment) (TBD) iHD - [facility] Dialysis - MWF CM called [facility] [phone] regarding chair hold. Will hold chair for 30 days. CM updated EHR/MELBA with dialysis information. Barriers/Today we still Wait: Administering IV medications, Clinical stability, Buffer Operator recommendations (comment) Length of Stay (Days): 1 GMLOS: No GMLOS Documented Case management will continue to follow for discharge planning. [facility] 11-26-2024 Note Formatting of this n ote might be different from the original. Care Management Progress Note Transferred to T2 ICU for aggitation, precedex gtt, iHD baseline MWF - nephrology following. PT/OT pending. Planned Discharge Disposition: Other (Comment) (TBD) iHD - [facility] Dialysis - MWF CM called [facility] [phone] regarding chair hold. Will hold chair for 30 days. CM updated EHR/MELBA with dialysis information. Barriers/Today we still Wait: Administering IV medications, Clinical stability, Buffer Operator recommendations (comment) Length of Stay (Days): 1 GMLOS: No GMLOS Documented Case management will continue to follow for discharge planning. [facility] 11-26-2024 Note Care Management Prog ress Note Transferred to T2 ICU for aggitation, precedex gtt, iHD baseline MWF - nephrology following. PT/OT pending. Planned Discharge Disposition: Other (Comment) (TBD) iHD - [facility] Dialysis - MWF CM called [facility] [phone] regarding chair hold. Will hold chair for 30 days. CM updated EHR/MELBA with dialysis information. Barriers/Today we still Wait: Administering IV medications, Clinical stability, Buffer Operator recommendations (comment) Length of Stay (Days): 1 GMLOS: No GMLOS Documented Case management will continue to follow for discharge planning. [facility] 11-26-2024 Note [facility] [address] [place] [id number] CONTINUOUS LONG-TERM VIDEO EEG MONITORING REPORT Patient Name: Franklin Burton : 1945 Date of Study: 11/26/2024 Duration Recorded: 18:45:43 EEG#: [id number] STAMP MAKER: Alvaro HARDY PROVIDER REQUESTING STUDY: Erasmo Singh DO REASON FOR EXAM: Evaluate for seizures DIAGNOSIS TAG: Encephalopathy NOS (ENC-NOS) HISTORY: Franklin Burton is a 79 y.o. male with history of Franklin is a 79 y.o. male with past medical history below who was transferred from outside hospital for altered mentation. Patient not able to provide any history. Family at bedside. Reported that a few hours after dialysis patient became confused. Not coherent. Family reports having same episodes previously as well after dialysis. Which seems to have improved much earlier rather than this time. No fever. No recent travel no sick contacts family has not noticed any seizures. Patient evaluated at outside hospital and transferred to [facility] for further evaluation management. MEDICATIONS: Current Medications[1] TECHNICAL ASPECTS: This continuous scalp EEG study with video was carried out at [facility]. Scalp electrodes were positioned in person by an cytogenetic technologist, following patient education, according to the 10-20 International system of electrode placement and maintained for integrity and quality of the recording. An abbreviated set of electrodes was placed which included FP1/2, T7/8, C3/4, O1/2, Fz-Cz-Pz. EEG data with video was recorded continuously and digitally stored. The cytogenetic technologist reviewed all automated detections and manual events and prepared the data for archiving and provider review. Referential and bipolar montages were used for review. TECHNOLOGIST NOTES: No skull or scalp defects were observed. This video-EEG monitoring was continuously monitored, 4 patients per technologist. BACKGROUND ACTIVITY: Posterior background activity: A continuous organized 7-8 Hz, 10-25 uV rhythm was seen over the posterior head regions bilaterally. Beta range: Diffuse alpha-beta range activity (8-25 Hz, 10-20 uV) was seen. Sleep: Stage N2 sleep was reached as evidenced by the appearance of vertex waves and sleep spindles seen over the fronto-central head regions bilaterally. Normal Variants: None 09:06:38 -Background activity (Referential to average, LFF=1Hz, HFF=30Hz, Sens=7 uV/mm) SLOWING: Continuous (greater than 90% of the recording) diffuse delta range (6.5-7.5 Hz, 10-35 uV) irregular to semirhythmical slow wave activity was seen non-responsive to stimulation. INTERICTAL EPILEPTIFORM ACTIVITY: No epileptiform activity was seen. ICTAL ACTIVITY: No ictal activity was seen. NON-EPILEPTIC EVENTS: None. ACTIVATION PROCEDURES: Photic stimulation was not performed. Hyperventilation was not performed. IMPRESSION AND ACTIONS TAKEN: This continuous EEG with video is abnormal. Continuous diffuse mild slowing is seen non-responsive to stimulation. Sleep architecture is observed. Posterior dominant rhythms are seen during wakefulness. No interictal epileptiform activity or seizures are observed. The findings are supportive of an improving mild global encephalopathy non-specific as to etiology. Compared with the previous recording, there is a notable improvement on the degree of encephalopathy. Anam Vasiliy-Hassan, PhD Clinical Neurophysiologist Joselito Rehman MD PhD Epilepsy Attending [1] Current Facility-Administered Medications Medication Dose Route Frequency Provider Last Rate Last Admin acetaminophen (Tylenol) tablet 650 mg 650 mg Oral q6h PRN Erasmo Singh DO Or acetaminophen (Tylenol) suppository 650 mg 650 mg Rectal q6h PRN Erasmo Singh DO atorvastatin (Lipitor) tablet 40 mg 40 mg Oral Nightly Erasmo Singh DO azaTHIOprine (Imuran) tablet 50 mg 50 mg Oral Lunch Erasmo Singh DO bisacodyl (Dulcolax) suppository 10 mg 10 mg Rectal Daily PRN Erasmo Singh DO clopidogrel (Plavix) tablet 75 mg 75 mg Oral Daily Erasmo Singh DO 75 mg at 11/26/24 1015 dexmedeTOMIDine in NS (Precedex) 400 mcg in 100 mL (4 mcg/mL) infusion 0.1-1.5 mcg/kg/hr IntraVENous Continuous Erasmo Singh DO Stopped at 11/26/24 0438 dextrose 5 % infusion 100 mL/hr IntraVENous PRN Erasmo Singh DO dextrose 50 % solution 12.5 g 12.5 g IntraVENous PRN Erasmo Singh DO gabapentin (Neurontin) capsule 200 mg 200 mg Oral Nightly Erasmo Singh DO glucagon (human recombinant) injection 1 mg 1 mg IntraMUSCular PRN Erasmo Singh DO glucose oral gel 15 g 15 g Oral PRN Erasmo Singh DO heparin injection 5,000 Units 5,000 Units SubCUTAneous 2 times per day Erasmo Singh DO 5,000 Units at 11/26/24 1014 labeta (more content not included)... [facility] 11-26-2024 Procedure note Associated Ord er(s): EEG CONTINUOUS MONITORING Images from the original note were not included. [facility] [address] [place] [id number] CONTINUOUS LONG-TERM VIDEO EEG MONITORING REPORT Patient Name: Franklin Burton : 1945 Date of Study: 11/26/2024 Duration Recorded: 18:45:43 EEG#: [id number] STAMP MAKER: Alvaro HARDY PROVIDER REQUESTING STUDY: Erasmo Singh DO REASON FOR EXAM: Evaluate for seizures DIAGNOSIS TAG: Encephalopathy NOS (ENC-NOS) HISTORY: Franklin Burton is a 79 y.o. male with history of Franklin is a 79 y.o. male with past medical history below who was transferred from outside hospital for altered mentation. Patient not able to provide any history. Family at bedside. Reported that a few hours after dialysis patient became confused. Not coherent. Family reports having same episodes previously as well after dialysis. Which seems to have improved much earlier rather than this time. No fever. No recent travel no sick contacts family has not noticed any seizures. Patient evaluated at outside hospital and transferred to [facility] for further evaluation management. MEDICATIONS: Current Medications[1] TECHNICAL ASPECTS: This continuous scalp EEG study with video was carried out at [facility]. Scalp electrodes were positioned in person by an cytogenetic technologist, following patient education, according to the 10-20 International system of electrode placement and maintained for integrity and quality of the recording. An abbreviated set of electrodes was placed which included FP1/2, T7/8, C3/4, O1/2, Fz-Cz-Pz. EEG data with video was recorded continuously and digitally stored. The cytogenetic technologist reviewed all automated detections and manual events and prepared the data for archiving and provider review. Referential and bipolar montages were used for review. TECHNOLOGIST NOTES: No skull or scalp defects were observed. This video-EEG monitoring was continuously monitored, 4 patients per technologist. BACKGROUND ACTIVITY: Posterior background activity: A continuous organized 7-8 Hz, 10-25 uV rhythm was seen over the posterior head regions bilaterally. Beta range: Diffuse alpha-beta range activity (8-25 Hz, 10-20 uV) was seen. Sleep: Stage N2 sleep was reached as evidenced by the appearance of vertex waves and sleep spindles seen over the fronto-central head regions bilaterally. Normal Variants: None 09:06:38 -Background activity (Referential to average, LFF=1Hz, HFF=30Hz, Sens=7 uV/mm) SLOWING: Continuous (greater than 90% of the recording) diffuse delta range (6.5-7.5 Hz, 10-35 uV) irregular to semirhythmical slow wave activity was seen non-responsive to stimulation. INTERICTAL EPILEPTIFORM ACTIVITY: No epileptiform activity was seen. ICTAL ACTIVITY: No ictal activity was seen. NON-EPILEPTIC EVENTS: None. ACTIVATION PROCEDURES: Photic stimulation was not performed. Hyperventilation was not performed. IMPRESSION AND ACTIONS TAKEN: This continuous EEG with video is abnormal. Continuous diffuse mild slowing is seen non-responsive to stimulation. Sleep architecture is observed. Posterior dominant rhythms are seen during wakefulness. No interictal epileptiform activity or seizures are observed. The findings are supportive of an improving mild global encephalopathy non-specific as to etiology. Compared with the previous recording, there is a notable improvement on the degree of encephalopathy. Anam Guerrier, PhD Clinical Neurophysiologist Joselito Rehman MD PhD Epilepsy Attending [1] Current Facility-Administered Medications Medication Dose Route Frequency Provider Last Rate Last Admin acetaminophen (Tylenol) tablet 650 mg 650 mg Oral q6h PRN Erasmo Singh DO Or acetaminophen (Tylenol) suppository 650 mg 650 mg Rectal q6h PRN Erasmo Singh DO atorvastatin (Lipitor) tablet 40 mg 40 mg Oral Nightly Erasmo Singh DO azaTHIOprine (Imuran) tablet 50 mg 50 mg Oral Lunch Erasmo Singh DO bisacodyl (Dulcolax) suppository 10 mg 10 mg Rectal Daily PRN Erasmo Singh DO clopidogrel (Plavix) tablet 75 mg 75 mg Oral Daily Erasmo Singh DO 75 mg at 11/26/24 1015 dexmedeTOMIDine in NS (Precedex) 400 mcg in 100 mL (4 mcg/mL) infusion 0.1-1.5 mcg/kg/hr IntraVENous Continuous Erasmo Singh DO Stopped at 11/26/24 0438 dextrose 5 % infusion 100 mL/hr IntraVENous PRN Erasmo Singh DO dextrose 50 % solution 12.5 g 12.5 g IntraVENous PRN Erasmo Singh DO gabapentin (Neurontin) capsule 200 mg 200 mg Oral Nightly Erasmo Singh DO glucagon (human recombinant) injection 1 mg 1 mg IntraMUSCular PRN Erasmo Singh DO glucose oral gel 15 g 15 g Oral PRN Erasmo Singh DO heparin injection 5,000 Units 5,000 Units SubCUTAneous 2 times per day Erasmo Singh DO 5,000 Units at 11/26/24 1014 labetalol (Normodyne,Trandate) injection 10 mg 10 mg IntraVENous q10 min PRN Erasmo Singh DO metoprolol tartrate (Lopressor) tablet 25 mg 25 mg Oral BID Erasmo Singh DO naloxone (Narcan) injection 0.4 mg 0.4 mg IntraVENous q5 min PRN Erasmo Singh DO ondansetron ODT (Zofran-ODT) disintegrating tablet 4 mg 4 mg Oral q8h PRN Erasmo Singh DO Or ondansetron (Zofran) injection 4 mg 4 mg IntraVENous q6h PRN Erasmo Sinhg DO pantoprazole (ProtoNix) EC tablet 40 mg 40 mg Oral Nightly Cristi Dasilva MD Or pantoprazole (ProtoNix) 40 mg in sodium chloride (PF) 0.9 % 10 mL injection 40 mg IntraVENous Nightly Cristi Dasilva MD polyethylene glycol (PEG) 3350 (Miralax) packet 17 g 17 g Oral Daily PRN Erasmo Singh DO sodium chloride 0.9 % infusion 5-250 mL/hr IntraVENous PRN Erasmo Singh DO sodium chloride 0.9 % infusion 50 mL/hr IntraVENous Continuous Erasmo Singh DO 50 mL/hr at 11/25/24 0702 50 mL/hr at 11/25/24 0702 sodium chloride 0.9% (NS) flush 5-40 mL 5-40 mL IntraVENous q12h Erasmo Singh DO sodium chloride 0.9% (NS) flush 5-40 mL 5-40 mL IntraVENous PRN Erasmo Singh DO tamsulosin (Flomax) 24 hr capsule 0.4 mg 0.4 mg Oral Daily Erasmo Singh DO 0.4 mg at 11/26/24 1015 [facility] 11-26-2024 Note Nephrology Progress Note Patient: Franklin Burton Room number: T2-207/T2-207 A Date of Admit: 11/25/2024 LOS: 1 days Referring physician: Fawad Ruiz MD Outpatient Armored Car Guard: Tamia Marquez Assessment / Plan Franklin Burton is a 79 y.o. male with a past medical history of ESRD on HD MWF at [facility], GPA, DM type 2, HTN, HFrEF, BPH, GERD, ROYAL, OA, obesity, RLS, neuropathy, who was brought in from OSH due to AMS. Pt had HD and went home, then woke up agitated, feeling nauseated and confused, undergoing neurologic work up. Renal plan: 1-ESRD on HD MWF -will plan for next HD today -he is on gabapentin, lyrica discontinued -would be careful with hydration, currently on NS @ 50 ml/hr, can discontinue 2-Anemia: -Hgb 11.6, above goal -hold JENNIFER 3-QAMAR: -last Ca was 9 and phosphorus 2.7 -not on binders 4-BP/volume status: -last BP was 150/84 -he is on metoprolol 25 mg bid -TTE EF 50%. pHTN present. IVC not visualized. -will investigate EDW -HD today with 2 L UF goal 5-AMS: -neuro following -MRI planned 6-ID: -blood cx NGTD -not on Abs currently -he is on azathioprine Thank you for allowing us to participate in the care of this patient. Please call with any questions. Dr. Robison covering this weekend. Aleyda Martinez MD [facility] ([facility]) Office phone: [phone] Office fax: [phone] 11/26/2024 Subjective Patient was seen and examined this am. Family at bedside. He was awake and alert today, interactive, answering questions. Denies any nausea, vomiting, SOB or abdominal pain. Doesn't remember how he ended up in the hospital. Medications Scheduled Meds:Scheduled Meds[1] Continuous Infusions:Continuous Meds[2] Review of Systems Unable to obtain Vital Signs Vitals: 11/26/24 0900 11/26/24 1000 11/26/24 1109 11/26/24 1115 BP: 146/84 148/82 156/78 150/84 Pulse: 72 74 75 81 Resp: Temp: 36.6 ?C (97.8 ?F) TempSrc: Temporal SpO2: 100% 100% 100% 100% Weight: Height: Wt Readings from Last 3 Encounters: 11/25/24 103 kg (228 lb) 08/07/23 103 kg (228 lb) 01/09/23 96.6 kg (213 lb) Admit Wt: Weight: 103 kg (228 lb) Estimated body mass index is 34.67 kg/m? as calculated from the following: Height as of this encounter: 1.727 m (5' 8"). Weight as of this encounter: 103 kg (228 lb). Physical Exam General: awake and alert, answering questions, knows where he is HEENT: Sclera clear, EOMI, MMM, Nose/ears/hearing grossly normal Neck: Supple, trachea midline, no mass Chest: Normal excusion Heart: RRR, no rub/heave Lungs: Clear bilaterally, unlabored Abd: Soft, (+) BS, non-tender, non distended Ext: No edema Neuro: No tremor/myoclonus Skin: warm and dry, no rash LUE AVF with thrill and bruit present LABS Labs reviewed. Recent Labs 11/25/24 0702 11/26/24 0420 11/26/24 0647 WBC 6.3 6.5 -- HGB 11.3* 11.6* 12.0 HCT 35.2* 35.8* -- MCV 95.9 95.5 -- PLT 114* 101* -- Recent Labs 11/25/24 0702 11/26/24 0420 ALT 13 10 AST 22 25 ALKPHOS 81 81 BILITOT 0.6 0.8 Diagnostic Studies CXR 11/25: No acute cardiopulmonary process. The patient may proceed with MRI in regards to this exam. CT head 11/25: 1. No acute intracranial abnormality. 2. Diffuse cortical volume loss and chronic small vessel ischemic changes. [1] atorvastatin, 40 mg, Oral, Nightly azaTHIOprine, 50 mg, Oral, Lunch clopidogrel, 75 mg, Oral, Daily gabapentin, 200 mg, Oral, Nightly heparin, 5,000 Units, SubCUTAneous, 2 times per day metoprolol tartrate, 25 mg, Oral, BID pantoprazole, 40 mg, Oral, Nightly Or pantoprazole (ProtoNix) 40 mg in sodium chloride (PF) 0.9 % 10 mL injection, 40 mg, IntraVENous, Nightly sodium chloride 0.9%, 5-40 mL, IntraVENous, q12h tamsulosin, 0.4 mg, Oral, Daily [2] dexmedeTOMIDine in NS, 0.1-1.5 mcg/kg/hr, Last Rate: Stopped (11/26/24 0438) sodium chloride, 50 mL/hr, Last Rate: 50 mL/hr (11/25/24 0702) [facility] 11-26-2024 Consult note Associated Order (s): IP CONSULT TO CASE MANAGEMENT Acknowledges case management consult. Case management will follow for discharge planning. [facility] 11-26-2024 Consult note Associated Order (s): IP CONSULT TO CASE MANAGEMENT Acknowledges case management consult. Case management will follow for discharge planning. Associated Order(s): IP CONSULT TO GERIATRICS Images from the original note were not included. [facility] Geriatric Medicine Inpatient Consult Service Admission Date: 11/25/2024 Admission Status: INPATIENT Reason for Appointment No chief complaint on file. Geriatrics consulted for rec confusion Assessment Principal Problem: Stroke-like symptoms Active Problems: Stroke-like symptom Plan During this encounter, I spent 55 minutes -Reviewing previous notes, -Reviewing labs, -Obtaining and/or reviewing separately obtained history, -Counseling/educating the patient/family/caregiver, -Documenting clinical information in the patients electronic record, -Coordination of care for the patient, and -Performing a medically appropriate exam and/or evaluation. Encephalopathy -Improving. Unclear etiology. Agree with ruling out neurologic event as symptoms do seem to be most consistent with this. Predisposing factors for this patient include: Advanced age, cognitive impairment, end-stage renal disease Precipitating factors for this patient include: Medication effect, medication withdrawal, dialysis, ICU stay - He did not tolerate Precedex. 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 - Agree with continuing gabapentin and lyrica to avoid withdrawal as a contributor to any confusion that he may be having. -Delirium protocol - Continue evidence-based nonpharmacologic interventions for prevention and treatment of delirium: - redirect/reorient/reassure frequently - avoid restraints and instead utilize sitter as needed for safety - early mobilization as medically appropriate, OOB for meals as able - have patient use glasses and hearing aides - use familiar objects (family photos and items from home) - sleep hygiene, limit nighttime care to promote sleep/wake cycle - hydrate and encourage PO intake when medically appropriate - minimize/camouflage lines and tethers as able - minimize narcotics as long as pain is adequately controlled - avoid benzos and anticholinergic medications -Avoid antipsychotics unless patient is a danger to themselves or others. -Encourage PO intake, time up in chair, family visits, supervised ambulation, and sleep hygiene -If agitated, assess for and consider treating for pain -QTc= 438 -Monitor for constipation/urinary retention - Cognitive Impairment -Plan for f/up with [facility]. - He does endorse some worsening memory and his [id number] and other family members endorse concern for his driving. Debility - PT/OT evaluation pending. - May benefit from rehab following admission. Neuropathy -Poorly controlled per his report - Agree with continuing gabapentin and pregabalin to avoid withdrawal. - Agree with renally dosing gabapentin and Neurontin given his diagnosis of end-stage renal disease on hemodialysis. Subjective: HPI 79 y.o. year-old male presented from outside hospital for altered mental status on 11/25/2024 . He was transferred from an outside hospital to [facility]. Per review of history and physical episode of confusion was fairly acute onset following dialysis. CT head showed no acute findings. Diffuse cortical volume loss and chronic small vessel ischemic changes noted. Neurology consulted MRI brain ordered. MRI brain unable to be obtained due to agitation. He was ultimately transferred to the ICU due to persistent confusion and possible need for a Precedex drip. Nephrology was consulted as he is on hemodialysis B12 within normal limits ammonia and troponin within normal limits. His spouse told the ICU team that the evening after dialysis his mental status became altered and persisted into the next morning. EEG showed findings supportive of a moderate to marked global encephalopathy that was nonspecific. No interictal epileptiform activity or seizures observed. He did receive Precedex while in the ICU but became somnolent so this was discontinued. He had noticeable improvement in his mentation while in the ICU and primary team this morning reports that he was following commands and answering simple questions. Further into the day they noted that he became alert and oriented x 4. EEG performed today showed notable improvement on the encephalopathy degree. MRI brain showed no acute intracranial fat lesions probable chronic ischemic and atrophic changes noted. Collateral history obtained from , [id number]. Feels that this memory is slipping away. States that he would not drive if he felt that he was losing the ability to do so. Takes lyrica and gabapentin. States that he takes them togetehr because his doctor felt that the lyrica would enhance the gabapentin effect. He also takes percocet q 8 hours. States that he does not feel that he is getting relief from his current regimen. Wishes that he could take the percocet more frequently. Christina states that he has had other epiisodes of altered mental status but they were not this bad. His said tgaht she heard him call her name and then he seemed to not be able to speak she thought he was having a stroke. Quick Cognitive Screen (QCS): Nursing Delirium Screen (Nu-Desc): Nursing Delirium Symptom Checklist Total Score: 6 Known to the [facility]? No Allergies[1] Medications reviewed in hospital records. Medical History[2] Surgical History[3] Social History Tobacco Use Smoking status: Former Current packs/day: 0.00 Average packs/day: 1 pack/day for 19.0 years (19.0 ttl pk-yrs) Types: Cigarettes Start date: 07/08/1962 Quit date: 07/26/1981 Years since quittin.3 Smokeless tobacco: Never Substance Use Topics Alcohol use: Never Present at visit: , sister, [id number] Marital status: Children: yes Living arrangement: with spouse Household safety problems: weakness, memory loss Driving safety concerns: He denies any but family endorse concerns about driving. [id number] states that she would not let him drive her children Elder abuse: Community resources: .unknown Healthcare Power of Spray Foam Installer: unknown Living Will: unknown Code Status: DNR-CCA Family History Family History[4] Family Status Relation Name Status Other (Not Specified) MGM (Not Specified) Sister Brother Norris Father Mother No partnership data on file Review of Systems Psychiatric/Behavioral: Positive for memory loss. Functional Status Prior to Admission (I: Independent, A: Assisted, D: Dependent) ADLs I A D Notes Bathing [x] [] [] Dressing [x] [] [] Toileting [x] [] [] Transfers [x] [] [] Feeding [x] [] [] Ambulation [x] [] [] Assistive devices: straight cane and walker IADLs I A D Telephone [x] [] [] Transportation [x] [] [] Shopping [] [] [] Meal prep [] [] [] Housework [] [] [] Medications [x] [] [] Finances [] [x] [] manages and has for some time after he was ill. Objective: BP 122/67 Pulse 67 Temp 36.2 C (97.1 F) (Temporal) Resp 24 Ht 5' 8" (1.727 m) Wt 228 lb (103 kg) SpO2 100% BMI 34.67 kg/m Physical Exam Constitutional: General: He is not in acute distress. Cardiovascular: Rate and Rhythm: Tachycardia present. Pulmonary: Effort: Pulmonary effort is normal. No respiratory distress. Musculoskeletal: Right lower leg: No edema. Left lower leg: No edema. Skin: General: Skin is warm and dry. Neurological: Mental Status: He is alert and oriented to person, place, and time. Psychiatric: Mood and Affect: Mood normal. Behavior: Behavior normal. Thought Content: Thought content normal. 3 item recall/short term memory: NA Clock Drawing Test: NA Labs and Imaging: Lab Results Component Value Date WBC 6.5 11/26/2024 HGB 12.0 11/26/2024 HCT 35.8 (L) 11/26/2024 MCV 95.5 11/26/2024 PLT 101 (L) 11/26/2024 Lab Results Component Value Date NA 130 (L) 11/26/2024 K 5.6 (H) 11/26/2024 CL 102 11/26/2024 CO2 24 11/26/2024 BUN 18 11/26/2024 CREATININE 3.67 (H) 11/26/2024 GLUCOSE 108 11/26/2024 CALCIUM 9.0 11/26/2024 PROT 6.5 11/26/2024 BILITOT 0.8 11/26/2024 ALKPHOS 81 11/26/2024 AST 25 11/26/2024 ALT 10 11/26/2024 Lab Results Component Value Date VITD25 46 04/19/2019 TSH 3.739 04/09/2021 UA: No results found for: "APPEARANCE", "COLORU", "LABSPEC", "LABPH", "URINE", "GLUCOSEU", "UROBILINOGEN", "BILIRUBINUR", OCBU No results found for the last 90 days. Pain Management Panel No data to display === 11/25/24 === CT HEAD WO IV CONTRAST - Impression - 1. No acute intracranial abnormality. 2. Diffuse cortical volume loss and chronic small vessel ischemic changes. Report Dictated on Electronically Signed By: Mehreen Vargas MD Electronically Signed Date/Time: 11/25/2024 11:35 AM EDT No results found for this or any previous visit from the past 365 days. === 11/25/24 === XR CHEST 1 VIEW - Impression - No acute cardiopulmonary process. The patient may proceed with MRI in regards to this exam. Report Dictated on Electronically Signed By: Carlin Esteban MD Electronically Signed Date/Time: 11/25/2024 7:40 PM EDT Comment: Please note that portions of this report were produced using speech recognition software and may contain errors related to that system including errors in grammar, punctuation, and spelling, as well as words and phrases that may be inappropriate. If there are any questions or concerns please feel free to contact the dictating provider for clarification. [1] Allergies Allergen Reactions Aspirin Other Cannot have due to kidney disease Other reaction(s): cannot take d/t Zach's Vasculitis Kidney issues Other Other reaction(s): Other: See Comments Sneezing, itchy and watery eyes [2] Past Medical History: Diagnosis Date Allergic rhinitis BPH (benign prostatic hyperplasia) BPH (benign prostatic hyperplasia) CHF (congestive heart failure) (HCC) Chronic back pain Chronic kidney disease Chronic systolic heart failure (HCC) 06/05/2020 Compression fracture spring 2014 T12 Diabetes mellitus without complication (HCC) 07/24/2016 no diabetes GERD (gastroesophageal reflux disease) [place] (hard of hearing) 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 Hypertension Indwelling Osorio catheter present Obesity ROYAL (obstructive sleep apnea) Osteoarthritis Restless legs syndrome Status post right hip replacement 03/19/2016 Urge incontinence 07/24/2016 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HCC) [3] Past Surgical History: Procedure Laterality Date CATARACT EXTRACTION Bilateral COLONOSCOPY COLONOSCOPY 01/02/2016 Repeat in 3 years, colon polyps, diverticulosis and internal hemorrhoid COLONOSCOPY 08/24/2017 by Joana Moreno, repeat in 5 years, diverticulosis, internal hemorrhoid EYE SURGERY HIP ARTHROPLASTY Right 02/05/2016 right hip HX AV FISTULA CREATION Left 02/20/2021 JOINT REPLACEMENT KNEE ARTHROSCOPY Left 1988 ORTHOPEDIC SURGERY Left 1989 knee- left knee mensicus arthroscopic surgery PROSTATE BIOPSY 01/11/2014 trus bx- negative RENAL BIOPSY 12/2013 TRANSURETHRAL RESECTION OF PROSTATE 04/06/2020 Button TURP. [place] UPPER GASTROINTESTINAL ENDOSCOPY 01/02/2016 gasttitis, duodentits, GERD with esophagitis UPPER GASTROINTESTINAL ENDOSCOPY 08/22/[address] Bernard, no BE , gastritis, duodenitis and esophagus WISDOM TOOTH EXTRACTION [4] Family History Problem Relation Name Age of Onset Bleeding Prob Other Diabetes Maternal Grandmother Colon cancer Sister 70.00 Colon cancer Brother Norris 70.00 Prostate cancer Father Lung cancer Father Heart failure Mother Heart disease Mother Images from the original note were not included. Internal Medicine: MICU Initial History and Physical Name: Franklin Burton : 1945(79 y.o.) Date: 11/25/24 Attending: Dr. Ruiz Subjective: Chief Complaint: AMS HPI: 79 y/o M with PMHx ESRD on iHD, BPH, T2DM, Obesity, ROYAL, RLS, GPA, HFpEF (EF 50% on 11/25/24), chronic back pain with neuropathy who presented to [facility] as a transfer from outside facility for evaluation of AMS. Pt admitted to the hospitalist service with neurology consult. Plan is for EEG and MRI for further evaluation. However, the patient was notably too agitated for these studies to be completed. ICU consulted for admission for control of agitation. On review of chart, VSS. CMP consistent with h/o kidney disease. B12 WNL. CBC shows chronic stable anemia and thrombocytosis. CT head shows chronic small vessel changes without acute changes. Blood cx pending. Troponin normal. UA ordered. Ammonia normal. On evaluation by MICU team, the patient is clearly encephalopathic. He appears uncomfortable and has spontaneous movement of all four extremities. The patient is unable to answer questions or provide history. He does occasionally speak words that are comprehensible, but are notably inappropriate. Family at bedside provides additional history. reports that the patient woke up yesterday morning feeling his normal self. She denies recent illness. He did go to his scheduled dialysis and was able to complete the session. He was notably tired afterwards, but the states that this is not uncommon for him. That evening, his mental status became altered. This persisted into the next morning which prompted his visit to the emergency department. They deny any recent medication changes. His only complaint to them was some acute on chronic musculoskeletal back pain. They report that he was possibly not eating and drinking as well as he normally does. He was having regular bowel movements. Medical History[1] Surgical History[2] Family History[3] Social History Socioeconomic History Marital status: Spouse name: Not on file Number of children: Not on file Years of education: Not on file Highest education level: Not on file Occupational History Not on file Tobacco Use Smoking status: Former Current packs/day: 0.00 Average packs/day: 1 pack/day for 19.0 years (19.0 ttl pk-yrs) Types: Cigarettes Start date: 07/08/1962 Quit date: 07/26/1981 Years since quittin.3 Smokeless tobacco: Never Vaping Use Vaping status: Never Used Substance and Sexual Activity Alcohol use: Never Drug use: Never Sexual activity: Not on file Comment: Other Topics Concern Not on file Social History Narrative Not on file Social Drivers of Health Financial Resource Strain: Low Risk (03/04/2023) Received from [facility] Overall Financial Resource Strain (CARDIA) Difficulty of Paying Living Expenses: Not hard at all Food Insecurity: No Food Insecurity (03/04/2023) Received from [facility] Hunger Vital Sign Worried About Running Out of Food in the Last Year: Never true Ran Out of Food in the Last Year: Never true Transportation Needs: No Transportation Needs (03/04/2023) Received from [facility] PRAPARE - Transportation Lack of Transportation (Medical): No Lack of Transportation (Non-Medical): No Physical Activity: Not on file Stress: Not on file Social Connections: Not on file Intimate Partner Violence: Not on file Housing Stability: Unknown (03/04/2023) Received from [facility] Housing Stability Vital Sign Unable to Pay for Housing in the Last Year: No Number of Places Lived in the Last Year: Not on file Unstable Housing in the Last Year: No Allergies[4] Prior to Admission medications Medication Sig Start Date End Date Taking? Authorizing Provider acetaminophen (Tylenol Extra Strength) 500 MG tablet every 6 hours. Historical Provider, azaTHIOprine (Imuran) 50 MG tablet Daily with lunch. 12/04/20 Historical Provider, finasteride (Proscar) 5 MG tablet Take 5 mg by mouth daily. Do not crush, chew, or split. Historical Provider, gabapentin (Neurontin) 100 MG capsule Take 2 capsules by mouth Nightly. 03/04/22 Historical Provider, metoprolol tartrate (Lopressor) 25 MG tablet every 12 hours. Historical Provider, mirtazapine (Remeron) 15 MG tablet Take 15 mg by mouth Nightly. Historical Provider, omeprazole (PriLOSEC) [address] capsule Take 1 capsule (40 mg) by mouth daily. 10/15/22 Rahel Mendez MD pregabalin (Lyrica) 25 MG capsule Take 25 mg by mouth 2 times daily. Historical Provider, tamsulosin (Flomax) 0.4 MG 24 hr capsule Every 24 hours. Historical Provider, oxyCODONE-acetaminophen (Percocet) 5-325 MG tablet Take 1 tablet by mouth every 8 hours as needed for severe pain (7-10) or moderate pain (4-6). 11/25/24 Historical Provider, Objective: Oxygen Delivery: O2 Flow Rate (L/min): 2 L/min VITALS: BP (!) 168/101 (BP Location: Right arm, Patient Position: Lying) Pulse 97 Temp 36.3 C (97.4 F) (Temporal) Resp 20 Ht 1.727 m (5' 8") Wt 103 kg (228 lb) SpO2 94% BMI 34.67 kg/m CURRENT PULSE OXIMETRY: SpO2: 94 % Review of Systems Unable to perform ROS: Mental status change Constitutional: General Appearance [x]WDWN []Obese []Cachectic []Thin []Ill Eyes: Inspection of Pupils/Irises Pupils round and react: [x]Yes []No Sclera: []Icteric [x]Non-Icteric Inspection of Conjunctiva/Lids Conjunctiva: []Injected []Non-Injected Lids: [x]Intact []Lesion Present ENT/Mouth: External Inspection of ears/nose [] Normal [] Scar/Lesion/Mass Inspection of teeth/lips/gums Dentition: [][place] Teeth []Dentures Lips/Gums: [x]Intact []Lesion Present Mucosa: [][place] []Moist [x]Dry Neck: External Appearance Overall Appearance: [x]Normal []Lesion/Mass/Crepitus Present Trachea midline: []Yes []No Thyroid []Normal []Enlarged []Tender []Mass []Absent Respiratory: Respiratory effort []Labored [x]Non-Labored [] Mechanically-Ventilated Auscultation [x]Clear []Crackles []Wheezes []Rhonchi Cardiovascular: Auscultation Rate: []Regular []Irregular [x]Tachycardia []Bradycardia Rhythm: [x]Regular []Irregular Murmur: []Present [x]Absent Extremities Peripheral Edema: []Present [x]Absent Varicosities: []Present []Absent Gastrointestinal: Abdomen Palpation: [x]Soft []Firm []Tender [x]Non-Tender []Distended [x]Non-distended Mass: []Present []Absent Bowel Sounds: [x]Present []Absent Hernia: []Present []Absent Liver/Spleen: []Hepatosplenomegaly []Organomegaly Absent Musculoskeletal: Inspection of Digits and Nails Cyanosis: []Present [x]Absent Clubbing: []Present []Absent Ischemia: []Present []Absent Infection: []Present []Absent Extremities CROOKS Equally: Except ([]RUE []RLE []LUE []LLE) Strength/Tone: Intact and Normal ([]RUE []RLE []LUE []LLE) Skin: Inspection [x]Normal []Rash []Lesion []Ulcer Palpation [x]Warm []Cool [x]Dry []Clammy []Nodules []Induration []Skin-tightening Cap-Refill: [] <3 sec [] >3 seconds (delayed) Neurologic: GCS EYE: 2 - Opens to pain GCS MOTOR: 5 - Localizes to pain (purposeful movements to painful stimulus) GCS VERBAL: 1 - No response Total GCS: 8 [] Sensation grossly intact Psych: Mental Status Alert: []Yes [] No Oriented: [x]x0 []X1 []X2 []x3 Mood/Affect []Normal []Flat [x]Agitated []Depressed []Anxious []Calm []Sedated []NAD [facility] within last 24 hours- BMP: Recent Labs 11/25/24 0702 NA 133* K 4.6 CL 101 CO2 27 BUN 13 CREATININE 3.06* CALCIUM 9.2 LFTs: Recent Labs 11/25/24 0702 AST 22 ALT 13 PROT 6.8 ALBUMIN 3.7 BILITOT 0.6 ALKPHOS 81 Glucose: Recent Labs 11/25/24 0702 GLUCOSE 103 Procal: No results for input(s): "PROCAL" in the last 72 hours. CBC: Recent Labs 11/25/24 0702 WBC 6.3 HGB 11.3* HCT 35.2* PLT 114* MCV 95.9 RDW 13.2 ABGs: No results for input(s): "PHART", "NXR3YPF", "PO2ART", "YKP1SXZ", "SO2ART", "Q8YDVEQV" in the last 72 hours. Lactic Acid: No results for input(s): "LACTATE" in the last 72 hours. INR: No results for input(s): "INR" in the last 72 hours. Cardiac Injury Profile: No results for input(s): "CKTOTAL", "CKMB", "TROPONINI" in the last 72 hours. Labs in Last 3 months: Lab Results Component Value Date TSH 3.739 04/09/2021 VITD25 46 04/19/2019 INR 1.2 03/05/2023 Microbiology- Urine Cx: No results found for: URINECX Blood Cx: Lab Results Component Value Date BLOODCX Blood culture incubation started 11/25/2024 Sputum Cx: No results found for: RESPCULT Gram Stain: No results found for: LABGRAM PNA PCR: No results found for: HUMANMETAPNE COVID19: No results found for: COVID19 Legionella Ag: No results found for: "LEGIONELLAPN" Strep Ag: No results for input(s): "STREPPNEUMO" in the last 72 hours. Imaging- CT head wo IV contrast Final Result 1. No acute intracranial abnormality. 2. Diffuse cortical volume loss and chronic small vessel ischemic changes. Report Dictated on Electronically Signed By: Mehreen Vargas MD Electronically Signed Date/Time: 11/25/2024 11:35 AM EDT XR abdomen 1 view Final Result No findings that preclude MR imaging. Report Dictated on Electronically Signed By: Mehreen Vargas MD Electronically Signed Date/Time: 11/25/2024 12:22 PM EDT MR brain wo contrast (Results Pending) XR chest 1 view (Results Pending) Assessment and Plan: Principal Problem: Stroke-like symptoms Active Problems: Stroke-like symptom Assessment: Encephalopathy of unclear etiology ESRD on iHD (M/W/Fr) Chronic stable anemia Thrombocytopenia Chronic back pain with neuropathy Hx of T2DM ROYAL Hx of RLS HFpEF Plan: Admit to T3 Precedex for agitation. Avoid benzos MRI and cEEG per neuro Will need LP at some point Monitor on telemetry Daily labs Nephrology consult for iHD Neurology to follow NPO. Hold PO meds for now. 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 Pt not on insulin therapy. Glucose checks with hypoglycemia protocol GI Prophylaxis: Not indicated DVT Prophylaxis: Heparin subcutaneous BMI Classification: Body mass index is 34.67 kg/m . obesity BMI 30-39.9 Disposition: Remain in ICU Status [1] Past Medical History: Diagnosis Date Allergic rhinitis BPH (benign prostatic hyperplasia) BPH (benign prostatic hyperplasia) CHF (congestive heart failure) (HCC) Chronic back pain Chronic kidney disease Chronic systolic heart failure (HCC) 06/05/2020 Compression fracture spring 2014 T12 Diabetes mellitus without complication (CMS/HCC) (HCC) 07/24/2016 no diabetes GERD (gastroesophageal reflux disease) [place] (hard of hearing) 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 Hypertension Indwelling Osorio catheter present Obesity ROYAL (obstructive sleep apnea) Osteoarthritis Restless legs syndrome Status post right hip replacement 03/19/2016 Urge incontinence 07/24/2016 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[facility]) [2] Past Surgical History: Procedure Laterality Date CATARACT EXTRACTION Bilateral COLONOSCOPY COLONOSCOPY 01/02/2016 Repeat in 3 years, colon polyps, diverticulosis and internal hemorrhoid COLONOSCOPY 08/24/2017 by Joana Moreno, repeat in 5 years, diverticulosis, internal hemorrhoid EYE SURGERY HIP ARTHROPLASTY Right 02/05/2016 right hip HX AV FISTULA CREATION Left 02/20/2021 JOINT REPLACEMENT KNEE ARTHROSCOPY Left 1988 ORTHOPEDIC SURGERY Left 1989 knee- left knee mensicus arthroscopic surgery PROSTATE BIOPSY 01/11/2014 trus bx- negative RENAL BIOPSY 12/2013 TRANSURETHRAL RESECTION OF PROSTATE 04/06/2020 Button TURP. [place] UPPER GASTROINTESTINAL ENDOSCOPY 01/02/2016 gasttitis, duodentits, GERD with esophagitis UPPER GASTROINTESTINAL ENDOSCOPY 08/22/[address] Bernard, no BE , gastritis, duodenitis and esophagus WISDOM TOOTH EXTRACTION [3] Family History Problem Relation Name Age of Onset Bleeding Prob Other Diabetes Maternal Grandmother Colon cancer Sister 70.00 Colon cancer Brother Tucker 70.00 Prostate cancer Father Lung cancer Father Heart failure Mother Heart disease Mother [4] Allergies Allergen Reactions Aspirin Other Cannot have due to kidney disease Other reaction(s): cannot take d/t Zach's Vasculitis Kidney issues Other Other reaction(s): Other: See Comments Sneezing, itchy and watery eyes Cosigned by Fawad Ruiz MD at 11/25/2024 8:48 PM EDT Associated attestation - Fawad Ruiz MD - 11/25/2024 8:48 PM EDT Attending Supervising Physician's Attestation Statement for ICU Admission I have personally seen the patient and examined along with the resident. I personally obtained the jorge and relevent portions of the history and performed physical exam. I reviewed the chart including MAR, labs, and radiology and agree with the patient's plan of action as discussed with the resident. This note reflects my plan of care as I have edited the note to reflect my findings and my assessment and plan. ROS documentation was reviewed and negative unless otherwise stated in HPI. Chief Complaint: Acute Metabolic Encephalopathy Additional pertinent history, ROS, and physical exam findings: 79 yo M PMH ESRD on HD, BPH, DMII, obesity, ROYAL, RLS, HFpEF 50% who presented from outside facility with altered mental status. Admitted for neurology evaluation and further work up however patient persistently agitated prohibiting further work up. CT head demonstrated chronic small vessel changes. Metabolic encephalopathy work up including ammonia, troponin, and B12 were normal. Neurology requesting MRI brain, cEEG monitoring however patient unable to cooperate and agitated prohibiting evaluation. Per reports patient treated with ativan however had not received any anti-psychotics while on the floor. ICU consulted for management of agitation. Patient seen and examined upon transfer to ICU. Awake, alert, calm. Denies acute complaints. Pleasantly confused but not agitated or aggressive. Non-labored breathing. Physical Exam Constitutional: General Appearance [x]Elderly []Obese []Cachectic []Thin []Ill Eyes: Inspection of Pupils/Irises Pupils round and react: [x]Yes []No Sclera: []Icteric [x]Non-Icteric Inspection of Conjunctiva/Lids Conjunctiva: []Injected [x]Non-Injected Lids: [x]Intact []Lesion Present ENT/Mouth: External Inspection of ears/nose [x] Normal [] Scar/Lesion/Mass Inspection of teeth/lips/gums Dentition: [][place] Teeth []Dentures Lips/Gums: [x]Intact []Lesion Present Mucosa: [x][place] [x]Moist []Dry Neck: External Appearance Overall Appearance: [x]Normal []Lesion/Mass/Crepitus Present Trachea midline: [x]Yes []No Thyroid [x]Normal []Enlarged []Tender []Mass []Absent Respiratory: Respiratory effort []Labored [x]Non-Labored [] Mechanically-Ventilated Auscultation [x]Clear []Crackles []Wheezes []Rhonchi Cardiovascular: Auscultation Rate: [x]Regular []Irregular []Tachycardia []Bradycardia Rhythm: [x]Regular []Irregular Murmur: []Present [x]Absent Extremities Peripheral Edema: []Present [x]Absent Varicosities: []Present []Absent Gastrointestinal: Abdomen Palpation: [x]Soft []Firm []Tender [x]Non-Tender []Distended [x]Non-distended Mass: []Present [x]Absent Bowel Sounds: [x]Present []Absent Hernia: []Present []Absent Liver/Spleen: []Hepatosplenomegaly []Organomegaly Absent Musculoskeletal: Inspection of Digits and Nails Cyanosis: []Present [x]Absent Clubbing: []Present [x]Absent Ischemia: []Present [x]Absent Infection: []Present [x]Absent Extremities CROOKS Equally: Except ([]RUE []RLE []LUE []LLE) Strength/Tone: Intact and Normal ([x]RUE [x]RLE [x]LUE [x]LLE) Skin: Inspection [x]Normal []Rash []Lesion []Ulcer Palpation [x]Warm []Cool []Dry []Clammy []Nodules []Induration []Skin-tightening Cap-Refill: [x] <3 sec [] >3 seconds (delayed) Neurologic: GCS EYE: 4 - Opens spontaneously GCS MOTOR: 6 - Obeys commands for movement GCS VERBAL: 4 - Confused Total GCS: 14 [x] Sensation grossly intact Psych: Mental Status Alert: [x]Yes [] No Oriented: []x0 [x]X1 []X2 []x3 Mood/Affect [x]Normal []Flat []Agitated []Depressed []Anxious []Calm []Sedated []NAD Assessment and Plan: Acute Encephalopathy - unclear etiology ESRD on HD MWF Chronic anemia Thrombocytopenia Back pain with neuropathy DMII without hyperglycemia Hx ROYAL Hx RLS HFpEF - Transfer to ICU - Avoid benzodiazepines given concern for worsening delirium - can start precedex for agitation however not requiring as of yet - plan for cEEG monitoring and MRI - will need LP in coming days, follow initial studies. - Nephrology following for HD - NeuroCC consulted - NPO pending improvement. - speech eval - continue home eval Code Status: DNR-CCA, ok for intubation Disposition: Transfer to ICU Time spent preparing to see the patient, obtaining/reviewing separately obtained history, completing an appropriate medical examination of the patient, ordering medications/tests/procedures, documenting clinical information on the EMR, and/or coordinating care is an initial visit: 75 minutes (Level III). Fawad Ruiz MD Pulmonary and Critical Care Medicine Attending Pager #[phone] Associated Order(s): IP CONSULT TO NEPHROLOGY Images from the original note were not included. Nephrology Consult Note Patient: Franklin Burton Room number: [id number] A Date of Admit: 11/25/2024 LOS: 0 days Referring physician: Taylor Weinberg MD Outpatient Armored Car Guard: Tamia Marquez Reason for Consult ESRD on HD Chief complaint: AMS Assessment / Plan Franklin Burton is a 79 y.o. male with a past medical history of ESRD on HD MWF at [facility], GPA, DM type 2, HTN, HFrEF, BPH, GERD, ROYAL, OA, obesity, RLS, neuropathy, who was brought in from OSH due to AMS. Pt had HD yesterday and went home, then woke up agitated, feeling nauseated and confused. Renal plan: 1-ESRD on HD: -will plan for next HD tomorrow -he is on gabapentin, lyrica discontinued -would be careful with hydration, currently on NS @ 50 ml/hr -will obtain records from dialysis facility 2-Anemia: -Hgb 11.3, above goal -hold JENNIFER 3-QAMAR: -last Ca was 9.2 -will check a phosphorus level 4-BP/volume status: -last BP was 168/101 -he is on metoprolol 25 mg bid -TTE ordered -will investigate EDW 5-AMS: -neuro following -MRI planned -critical care consulted 6-ID: -blood cx sent -consider checking urine studies -not on Abs currently -he is on azathioprine Thank you for allowing us to participate in the care of this patient. Please call with any questions. Aleyda Martinez MD [facility] ([facility]) Office phone: [phone] Office fax: [phone] 11/25/2024 History of Present Illness Franklin Burton is a 79 y.o. male with a past medical history of ESRD on HD MWF at [facility], GPA, DM type 2, HTN, HFrEF, BPH, GERD, ROYAL, OA, obesity, RLS, neuropathy, who was brought in from OSH due to AMS. Pt had HD yesterday and went home, then woke up agitated, feeling nauseated and confused. He was brought to [facility], then here to [facility]. Upon transfer here, his temp was 97.7 HR 93 RR 18 BP 154/87 and O2sat 95% on 2 L NC. Neurology was consulted and imaging was obtained. Spouse and family are at bedside this afternoon. They report he has had about 3-4 episodes where this has happened before. Last one was about 1 year ago. This has been the most severe one. They report he was otherwise doing ok over the last several days but complained of severe back pain. They didn't notice any fever or chills. He still makes urine, he didn't have any complaints about urination. Family reports prior hospitalizations this year for prostate issues. They can't comment on new medication changes, they said sister is the one who manages meds and she is [place] of state. Home Medications: reviewed. Past Medical History Allergic rhinitis BPH (benign prostatic hyperplasia) BPH (benign prostatic hyperplasia) CHF (congestive heart failure) ([facility]) Chronic back pain Chronic kidney disease Chronic systolic heart failure ([facility]) 06/05/2020 Compression fracture spring 2014 T12 Diabetes mellitus without complication ([facility]/HCC) ([facility]) 07/24/2016 no diabetes GERD (gastroesophageal reflux disease) [place] (hard of hearing) 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 Hypertension Indwelling Osorio catheter present Obesity ROYAL (obstructive sleep apnea) Osteoarthritis Restless legs syndrome Status post right hip replacement 03/19/2016 Urge incontinence 07/24/2016 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[facility]) Past Surgical History CATARACT EXTRACTION Bilateral COLONOSCOPY COLONOSCOPY 01/02/2016 Repeat in 3 years, colon polyps, diverticulosis and internal hemorrhoid COLONOSCOPY 08/24/2017 by Joana Moreno, repeat in 5 years, diverticulosis, internal hemorrhoid EYE SURGERY HIP ARTHROPLASTY Right 02/05/2016 right hip HX AV FISTULA CREATION Left 02/20/2021 JOINT REPLACEMENT KNEE ARTHROSCOPY Left 1988 ORTHOPEDIC SURGERY Left 1989 knee- left knee mensicus arthroscopic surgery PROSTATE BIOPSY 01/11/2014 trus bx- negative RENAL BIOPSY 12/2013 TRANSURETHRAL RESECTION OF PROSTATE 04/06/2020 Button TURP. [place] UPPER GASTROINTESTINAL ENDOSCOPY 01/02/2016 gasttitis, duodentits, GERD with esophagitis UPPER GASTROINTESTINAL ENDOSCOPY 08/22/[address] Bernard, no BE , gastritis, duodenitis and esophagus WISDOM TOOTH EXTRACTION Family History Bleeding Prob Other Diabetes Maternal Grandmother Colon cancer Sister 70.00 Colon cancer Brother Norris 70.00 Prostate cancer Father Lung cancer Father Heart failure Mother Heart disease Mother Social History Social History[1] Medications Scheduled Meds:Scheduled Meds[2] Continuous Infusions:Continuous Meds[3] Allergies Allergies[4] Review of Systems Unable to obtain Vital Signs Vitals: 11/25/24 0606 11/25/24 1023 11/25/24 1336 BP: 154/87 (!) 168/101 BP Location: Right arm Patient Position: Lying Pulse: 93 97 Resp: 18 20 Temp: 36.5 C (97.7 F) 36.3 C (97.4 F) TempSrc: Temporal Temporal SpO2: 95% 94% Weight: 103 kg (228 lb) Height: 1.727 m (5' 8") Wt Readings from Last 3 Encounters: 11/25/24 103 kg (228 lb) 08/07/23 103 kg (228 lb) 01/09/23 96.6 kg (213 lb) Admit Wt: Weight: 103 kg (228 lb) Estimated body mass index is 34.67 kg/m as calculated from the following: Height as of this encounter: 1.727 m (5' 8"). Weight as of this encounter: 103 kg (228 lb). Physical Exam General: lethargic, restless, eyes closed, doesn't follow commands HEENT: Sclera clear, EOMI, MMM, Nose/ears/hearing grossly normal Neck: Supple, trachea midline, no mass Chest: Normal excusion Heart: RRR, no rub/heave Lungs: Clear bilaterally, unlabored Abd: Soft, (+) BS, non-tender, non distended Ext: No edema Neuro: No tremor/myoclonus Skin: warm and dry, no rash LUE AVF with thrill and bruit present LABS Labs reviewed. Recent Labs 11/25/24 0702 WBC 6.3 HGB 11.3* HCT 35.2* MCV 95.9 PLT 114* Recent Labs 11/25/24 0702 ALT 13 AST 22 ALKPHOS [address] head 11/25: 1. No acute intracranial abnormality. 2. Diffuse cortical volume loss and chronic small vessel ischemic changes. [1] Social History Socioeconomic History Marital status: Tobacco Use Smoking status: Former Current packs/day: 0.00 Average packs/day: 1 pack/day for 19.0 years (19.0 ttl pk-yrs) Types: Cigarettes Start date: 07/08/1962 Quit date: 07/26/1981 Years since quittin.3 Smokeless tobacco: Never Vaping Use Vaping status: Never Used Substance and Sexual Activity Alcohol use: Never Drug use: Never Social Drivers of Health Financial Resource Strain: Low Risk (03/04/2023) Received from [facility] Overall Financial Resource Strain (CARDIA) Difficulty of Paying Living Expenses: Not hard at all Food Insecurity: No Food Insecurity (03/04/2023) Received from [facility] Hunger Vital Sign Worried About Running Out of Food in the Last Year: Never true Ran Out of Food in the Last Year: Never true Transportation Needs: No Transportation Needs (03/04/2023) Received from [facility] PRAPARE - Transportation Lack of Transportation (Medical): No Lack of Transportation (Non-Medical): No Housing Stability: Unknown (03/04/2023) Received from [facility] Housing Stability Vital Sign Unable to Pay for Housing in the Last Year: No Unstable Housing in the Last Year: No [2] acetaminophen, 650 mg, IntraVENous, Once atorvastatin, 40 mg, Oral, Nightly azaTHIOprine, 50 mg, Oral, Lunch clopidogrel, 75 mg, Oral, Daily gabapentin, 200 mg, Oral, Nightly haloperidol lactate, 5 mg, IntraVENous, Once heparin, 5,000 Units, SubCUTAneous, 2 times per day metoprolol tartrate, 25 mg, Oral, BID sodium chloride 0.9%, 5-40 mL, IntraVENous, q12h tamsulosin, 0.4 mg, Oral, Daily [3] sodium chloride, 50 mL/hr, Last Rate: 50 mL/hr (11/25/24 07) [4] Allergies Allergen Reactions Aspirin Other Cannot have due to kidney disease Other reaction(s): cannot take d/t Zach's Vasculitis Kidney issues Other Other reaction(s): Other: See Comments Sneezing, itchy and watery eyes documented in this encounter [facility] 11-26-2024 Consult note Associated Order (s): IP CONSULT TO GERIATRICS Images from the original note were not included. [facility] Geriatric Medicine Inpatient Consult Service Admission Date: 11/25/2024 Admission Status: INPATIENT Reason for Appointment No chief complaint on file. Geriatrics consulted for rec confusion Assessment Principal Problem: Stroke-like symptoms Active Problems: Stroke-like symptom Plan During this encounter, I spent 55 minutes -Reviewing previous notes, -Reviewing labs, -Obtaining and/or reviewing separately obtained history, -Counseling/educating the patient/family/caregiver, -Documenting clinical information in the patients electronic record, -Coordination of care for the patient, and -Performing a medically appropriate exam and/or evaluation. Encephalopathy -Improving. Unclear etiology. Agree with ruling out neurologic event as symptoms do seem to be most consistent with this. Predisposing factors for this patient include: Advanced age, cognitive impairment, end-stage renal disease Precipitating factors for this patient include: Medication effect, medication withdrawal, dialysis, ICU stay - He did not tolerate Precedex. 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 - Agree with continuing gabapentin and lyrica to avoid withdrawal as a contributor to any confusion that he may be having. -Delirium protocol - Continue evidence-based nonpharmacologic interventions for prevention and treatment of delirium: - redirect/reorient/reassure frequently - avoid restraints and instead utilize sitter as needed for safety - early mobilization as medically appropriate, OOB for meals as able - have patient use glasses and hearing aides - use familiar objects (family photos and items from home) - sleep hygiene, limit nighttime care to promote sleep/wake cycle - hydrate and encourage PO intake when medically appropriate - minimize/camouflage lines and tethers as able - minimize narcotics as long as pain is adequately controlled - avoid benzos and anticholinergic medications -Avoid antipsychotics unless patient is a danger to themselves or others. -Encourage PO intake, time up in chair, family visits, supervised ambulation, and sleep hygiene -If agitated, assess for and consider treating for pain -QTc= 438 -Monitor for constipation/urinary retention - Cognitive Impairment -Plan for f/up with [facility]. - He does endorse some worsening memory and his [id number] and other family members endorse concern for his driving. Debility - PT/OT evaluation pending. - May benefit from rehab following admission. Neuropathy -Poorly controlled per his report - Agree with continuing gabapentin and pregabalin to avoid withdrawal. - Agree with renally dosing gabapentin and Neurontin given his diagnosis of end-stage renal disease on hemodialysis. Subjective: HPI 79 y.o. year-old male presented from outside hospital for altered mental status on 11/25/2024 . He was transferred from an outside hospital to [facility]. Per review of history and physical episode of confusion was fairly acute onset following dialysis. CT head showed no acute findings. Diffuse cortical volume loss and chronic small vessel ischemic changes noted. Neurology consulted MRI brain ordered. MRI brain unable to be obtained due to agitation. He was ultimately transferred to the ICU due to persistent confusion and possible need for a Precedex drip. Nephrology was consulted as he is on hemodialysis B12 within normal limits ammonia and troponin within normal limits. His spouse told the ICU team that the evening after dialysis his mental status became altered and persisted into the next morning. EEG showed findings supportive of a moderate to marked global encephalopathy that was nonspecific. No interictal epileptiform activity or seizures observed. He did receive Precedex while in the ICU but became somnolent so this was discontinued. He had noticeable improvement in his mentation while in the ICU and primary team this morning reports that he was following commands and answering simple questions. Further into the day they noted that he became alert and oriented x 4. EEG performed today showed notable improvement on the encephalopathy degree. MRI brain showed no acute intracranial fat lesions probable chronic ischemic and atrophic changes noted. Collateral history obtained from , [id number]. Feels that this memory is slipping away. States that he would not drive if he felt that he was losing the ability to do so. Takes lyrica and gabapentin. States that he takes them togetehr because his doctor felt that the lyrica would enhance the gabapentin effect. He also takes percocet q 8 hours. States that he does not feel that he is getting relief from his current regimen. Wishes that he could take the percocet more frequently. Christina states that he has had other epiisodes of altered mental status but they were not this bad. His said tgaht she heard him call her name and then he seemed to not be able to speak she thought he was having a stroke. Quick Cognitive Screen (QCS): Nursing Delirium Screen (Nu-Desc): Nursing Delirium Symptom Checklist Total Score: 6 Known to the [facility]? No Allergies[1] Medications reviewed in hospital records. Medical History[2] Surgical History[3] Social History Tobacco Use Smoking status: Former Current packs/day: 0.00 Average packs/day: 1 pack/day for 19.0 years (19.0 ttl pk-yrs) Types: Cigarettes Start date: 07/08/1962 Quit date: 07/26/1981 Years since quittin.3 Smokeless tobacco: Never Substance Use Topics Alcohol use: Never Present at visit: , sister, [id number] Marital status: Children: yes Living arrangement: with spouse Household safety problems: weakness, memory loss Driving safety concerns: He denies any but family endorse concerns about driving. [id number] states that she would not let him drive her children Elder abuse: Community resources: .unknown Healthcare Power of Spray Foam Installer: unknown Living Will: unknown Code Status: DNR-CCA Family History Family History[4] Family Status Relation Name Status Other (Not Specified) MGM (Not Specified) Sister Brother Norris Father Mother No partnership data on file Review of Systems Psychiatric/Behavioral: Positive for memory loss. Functional Status Prior to Admission (I: Independent, A: Assisted, D: Dependent) ADLs I A D Notes Bathing [x] [] [] Dressing [x] [] [] Toileting [x] [] [] Transfers [x] [] [] Feeding [x] [] [] Ambulation [x] [] [] Assistive devices: straight cane and walker IADLs I A D Telephone [x] [] [] Transportation [x] [] [] Shopping [] [] [] Meal prep [] [] [] Housework [] [] [] Medications [x] [] [] Finances [] [x] [] manages and has for some time after he was ill. Objective: BP 122/67 Pulse 67 Temp 36.2 C (97.1 F) (Temporal) Resp 24 Ht 5' 8" (1.727 m) Wt 228 lb (103 kg) SpO2 100% BMI 34.67 kg/m Physical Exam Constitutional: General: He is not in acute distress. Cardiovascular: Rate and Rhythm: Tachycardia present. Pulmonary: Effort: Pulmonary effort is normal. No respiratory distress. Musculoskeletal: Right lower leg: No edema. Left lower leg: No edema. Skin: General: Skin is warm and dry. Neurological: Mental Status: He is alert and oriented to person, place, and time. Psychiatric: Mood and Affect: Mood normal. Behavior: Behavior normal. Thought Content: Thought content normal. 3 item recall/short term memory: NA Clock Drawing Test: NA Labs and Imaging: Lab Results Component Value Date WBC 6.5 11/26/2024 HGB 12.0 11/26/2024 HCT 35.8 (L) 11/26/2024 MCV 95.5 11/26/2024 PLT 101 (L) 11/26/2024 Lab Results Component Value Date NA 130 (L) 11/26/2024 K 5.6 (H) 11/26/2024 CL 102 11/26/2024 CO2 24 11/26/2024 BUN 18 11/26/2024 CREATININE 3.67 (H) 11/26/2024 GLUCOSE 108 11/26/2024 CALCIUM 9.0 11/26/2024 PROT 6.5 11/26/2024 BILITOT 0.8 11/26/2024 ALKPHOS 81 11/26/2024 AST 25 11/26/2024 ALT 10 11/26/2024 Lab Results Component Value Date VITD25 46 04/19/2019 TSH 3.739 04/09/2021 UA: No results found for: "APPEARANCE", "COLORU", "LABSPEC", "LABPH", "URINE", "GLUCOSEU", "UROBILINOGEN", "BILIRUBINUR", OCBU No results found for the last 90 days. Pain Management Panel No data to display === 11/25/24 === CT HEAD WO IV CONTRAST - Impression - 1. No acute intracranial abnormality. 2. Diffuse cortical volume loss and chronic small vessel ischemic changes. Report Dictated on Electronically Signed By: Mehreen Vargas MD Electronically Signed Date/Time: 11/25/2024 11:35 AM EDT No results found for this or any previous visit from the past 365 days. === 11/25/24 === XR CHEST 1 VIEW - Impression - No acute cardiopulmonary process. The patient may proceed with MRI in regards to this exam. Report Dictated on Electronically Signed By: Carlin Esteban MD Electronically Signed Date/Time: 11/25/2024 7:40 PM EDT Comment: Please note that portions of this report were produced using speech recognition software and may contain errors related to that system including errors in grammar, punctuation, and spelling, as well as words and phrases that may be inappropriate. If there are any questions or concerns please feel free to contact the dictating provider for clarification. [1] Allergies Allergen Reactions Aspirin Other Cannot have due to kidney disease Other reaction(s): cannot take d/t Zach's Vasculitis Kidney issues Other Other reaction(s): Other: See Comments Sneezing, itchy and watery eyes [2] Past Medical History: Diagnosis Date Allergic rhinitis BPH (benign prostatic hyperplasia) BPH (benign prostatic hyperplasia) CHF (congestive heart failure) ([facility]) Chronic back pain Chronic kidney disease Chronic systolic heart failure ([facility]) 06/05/2020 Compression fracture spring 2014 T12 Diabetes mellitus without complication ([facility]) 07/24/2016 no diabetes GERD (gastroesophageal reflux disease) [place] (hard of hearing) 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 Hypertension Indwelling Osorio catheter present Obesity ROYAL (obstructive sleep apnea) Osteoarthritis Restless legs syndrome Status post right hip replacement 03/19/2016 Urge incontinence 07/24/2016 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[facility]) [3] Past Surgical History: Procedure Laterality Date CATARACT EXTRACTION Bilateral COLONOSCOPY COLONOSCOPY 01/02/2016 Repeat in 3 years, colon polyps, diverticulosis and internal hemorrhoid COLONOSCOPY 08/24/2017 by Joana Moreno, repeat in 5 years, diverticulosis, internal hemorrhoid EYE SURGERY HIP ARTHROPLASTY Right 02/05/2016 right hip HX AV FISTULA CREATION Left 02/20/2021 JOINT REPLACEMENT KNEE ARTHROSCOPY Left 1988 ORTHOPEDIC SURGERY Left 1989 knee- left knee mensicus arthroscopic surgery PROSTATE BIOPSY 01/11/2014 trus bx- negative RENAL BIOPSY 12/2013 TRANSURETHRAL RESECTION OF PROSTATE 04/06/2020 Button TURP. Spear UPPER GASTROINTESTINAL ENDOSCOPY 01/02/2016 gasttitis, duodentits, GERD with esophagitis UPPER GASTROINTESTINAL ENDOSCOPY 08/22/[address] Bernard, no BE , gastritis, duodenitis and esophagus WISDOM TOOTH EXTRACTION [4] Family History Problem Relation Name Age of Onset Bleeding Prob Other Diabetes Maternal Grandmother Colon cancer Sister 70.00 Colon cancer Brother Tucker 70.00 Prostate cancer Father Lung cancer Father Heart failure Mother Heart disease Mother [facility] 11-25-2024 Note [facility] [address] [place] [id number] CONTINUOUS LONG-TERM VIDEO EEG MONITORING REPORT Patient Name: Franklin Burton : 1945 Date of Study: 11/25/2024 Duration Recorded: 02:14:39 EEG#: [id number] STAMP MAKER: Alvaro HARDY PROVIDER REQUESTING STUDY: Erasmo Singh DO REASON FOR EXAM: Evaluate for seizures DIAGNOSIS TAG: Encephalopathy NOS (ENC-NOS) HISTORY: Franklin Burton is a 79 y.o. male with history of Franklin is a 79 y.o. male with past medical history below who was transferred from outside hospital for altered mentation. Patient not able to provide any history. Family at bedside. Reported that a few hours after dialysis patient became confused. Not coherent. Family reports having same episodes previously as well after dialysis. Which seems to have improved much earlier rather than this time. No fever. No recent travel no sick contacts family has not noticed any seizures. Patient evaluated at outside hospital and transferred to [facility] for further evaluation management. MEDICATIONS: Current Medications[1] TECHNICAL ASPECTS: This continuous scalp EEG study with video was carried out at [facility]. Scalp electrodes were positioned in person by an cytogenetic technologist, following patient education, according to the 10-20 International system of electrode placement and maintained for integrity and quality of the recording. An abbreviated set of electrodes was placed which included FP1/2, T7/8, C3/4, O1/2, Fz-Cz-Pz. EEG data with video was recorded continuously and digitally stored. The cytogenetic technologist reviewed all automated detections and manual events and prepared the data for archiving and provider review. Referential and bipolar montages were used for review. TECHNOLOGIST NOTES: No skull or scalp defects were observed. This video-EEG monitoring was continuously monitored, 4 patients per technologist. BACKGROUND ACTIVITY: Posterior background activity: No observable posterior dominant rhythm was seen. Beta range: Diffuse alpha-beta range activity (8-25 Hz, 10-20 uV) was seen, at times reminiscent of sleep architecture. Sleep: No clearcut sleep architecture was observed. Normal Variants: None SLOWING: Continuous (greater than 90% of the recording) diffuse delta range (0.5-7 Hz, 20-45 uV) irregular to semirhythmical slow wave activity is seen These features are non-responsive to stimulation. 21:56:05 -Continuous slowing, generalized + diffuse alpha range activuty (AP Bipolar, LFF=1Hz, HFF=30Hz, Sens=5 uV/mm) INTERICTAL EPILEPTIFORM ACTIVITY: No epileptiform activity was seen. ICTAL ACTIVITY: No ictal activity was seen. NON-EPILEPTIC EVENTS: None. ACTIVATION PROCEDURES: Photic stimulation was not performed. Hyperventilation was not performed. IMPRESSION AND ACTIONS TAKEN: This continuous EEG with video is abnormal. Continuous diffuse moderate to marked slowing is seen non-responsive to stimulation. No interictal epileptiform activity or seizures are observed. The findings are supportive of a oxayeixr-fl-fquiyq global encephalopathy non-specific as to etiology. Anam Guerrier, PhD Clinical Neurophysiologist Joselito Rehman MD PhD Epilepsy Attending [1] Current Facility-Administered Medications Medication Dose Route Frequency Provider Last Rate Last Admin acetaminophen (Tylenol) tablet 650 mg 650 mg Oral q6h PRN Erasmo Singh DO Or acetaminophen (Tylenol) suppository 650 mg 650 mg Rectal q6h PRN Erasmo Singh DO atorvastatin (Lipitor) tablet 40 mg 40 mg Oral Nightly Erasmo Singh DO azaTHIOprine (Imuran) tablet 50 mg 50 mg Oral Lunch Erasmo Singh DO bisacodyl (Dulcolax) suppository 10 mg 10 mg Rectal Daily PRN Erasmo Singh DO clopidogrel (Plavix) tablet 75 mg 75 mg Oral Daily Erasmo Singh DO dexmedeTOMIDine in NS (Precedex) 400 mcg in 100 mL (4 mcg/mL) infusion 0.1-1.5 mcg/kg/hr IntraVENous Continuous Erasmo Singh DO 15.45 mL/hr at 11/25/24 2241 0.6 mcg/kg/hr at 11/25/24 2241 dextrose 5 % infusion 100 mL/hr IntraVENous PRN Erasmo Singh DO dextrose 50 % solution 12.5 g 12.5 g IntraVENous PRN Erasmo Singh DO gabapentin (Neurontin) capsule 200 mg 200 mg Oral Nightly Erasmo Singh DO glucagon (human recombinant) injection 1 mg 1 mg IntraMUSCular PRN Erasmo Singh DO glucose oral gel 15 g 15 g Oral PRN Erasmo Singh DO heparin injection 5,000 Units 5,000 Units SubCUTAneous 2 times per day Erasmo Singh DO 5,000 Units at 11/25/24 2108 labetalol (Normodyne,Trandate) injection 10 mg 10 mg IntraVENous q10 min PRN Erasmo Singh DO metoprolol tartrate (Lopressor) tablet 25 mg 25 mg Oral BID Erasmo Singh DO naloxone (Narcan) injection 0.4 mg 0.4 mg IntraVENo (more content not included)... [facility] 11-25-2024 Procedure note Associated Ord er(s): EEG CONTINUOUS MONITORING Images from the original note were not included. [facility] [address] [place] [id number] CONTINUOUS LONG-TERM VIDEO EEG MONITORING REPORT Patient Name: Franklin Burton : 1945 Date of Study: 11/25/2024 Duration Recorded: 02:14:39 EEG#: [id number] STAMP MAKER: Alvaro HARDY PROVIDER REQUESTING STUDY: Erasmo Singh DO REASON FOR EXAM: Evaluate for seizures DIAGNOSIS TAG: Encephalopathy NOS (ENC-NOS) HISTORY: Franklin Burton is a 79 y.o. male with history of Franklin is a 79 y.o. male with past medical history below who was transferred from outside hospital for altered mentation. Patient not able to provide any history. Family at bedside. Reported that a few hours after dialysis patient became confused. Not coherent. Family reports having same episodes previously as well after dialysis. Which seems to have improved much earlier rather than this time. No fever. No recent travel no sick contacts family has not noticed any seizures. Patient evaluated at outside hospital and transferred to [facility] for further evaluation management. MEDICATIONS: Current Medications[1] TECHNICAL ASPECTS: This continuous scalp EEG study with video was carried out at [facility]. Scalp electrodes were positioned in person by an cytogenetic technologist, following patient education, according to the 10-20 International system of electrode placement and maintained for integrity and quality of the recording. An abbreviated set of electrodes was placed which included FP1/2, T7/8, C3/4, O1/2, Fz-Cz-Pz. EEG data with video was recorded continuously and digitally stored. The cytogenetic technologist reviewed all automated detections and manual events and prepared the data for archiving and provider review. Referential and bipolar montages were used for review. TECHNOLOGIST NOTES: No skull or scalp defects were observed. This video-EEG monitoring was continuously monitored, 4 patients per technologist. BACKGROUND ACTIVITY: Posterior background activity: No observable posterior dominant rhythm was seen. Beta range: Diffuse alpha-beta range activity (8-25 Hz, 10-20 uV) was seen, at times reminiscent of sleep architecture. Sleep: No clearcut sleep architecture was observed. Normal Variants: None SLOWING: Continuous (greater than 90% of the recording) diffuse delta range (0.5-7 Hz, 20-45 uV) irregular to semirhythmical slow wave activity is seen These features are non-responsive to stimulation. 21:56:05 -Continuous slowing, generalized + diffuse alpha range activuty (AP Bipolar, LFF=1Hz, HFF=30Hz, Sens=5 uV/mm) INTERICTAL EPILEPTIFORM ACTIVITY: No epileptiform activity was seen. ICTAL ACTIVITY: No ictal activity was seen. NON-EPILEPTIC EVENTS: None. ACTIVATION PROCEDURES: Photic stimulation was not performed. Hyperventilation was not performed. IMPRESSION AND ACTIONS TAKEN: This continuous EEG with video is abnormal. Continuous diffuse moderate to marked slowing is seen non-responsive to stimulation. No interictal epileptiform activity or seizures are observed. The findings are supportive of a sggzkdkl-xk-ihzzcx global encephalopathy non-specific as to etiology. Anam Guerrier, PhD Clinical Neurophysiologist Joselito Rehman MD PhD Epilepsy Attending [1] Current Facility-Administered Medications Medication Dose Route Frequency Provider Last Rate Last Admin acetaminophen (Tylenol) tablet 650 mg 650 mg Oral q6h PRN Erasmo Singh DO Or acetaminophen (Tylenol) suppository 650 mg 650 mg Rectal q6h PRN Erasmo Singh DO atorvastatin (Lipitor) tablet 40 mg 40 mg Oral Nightly Erasmo Singh DO azaTHIOprine (Imuran) tablet 50 mg 50 mg Oral Lunch Erasmo Singh DO bisacodyl (Dulcolax) suppository 10 mg 10 mg Rectal Daily PRN Erasmo Singh DO clopidogrel (Plavix) tablet 75 mg 75 mg Oral Daily Erasmo Sinhg DO dexmedeTOMIDine in NS (Precedex) 400 mcg in 100 mL (4 mcg/mL) infusion 0.1-1.5 mcg/kg/hr IntraVENous Continuous Erasmo Singh DO 15.45 mL/hr at 11/25/242240 0.6 mcg/kg/hr at 11/25/242240 dextrose 5 % infusion 100 mL/hr IntraVENous PRN Erasmo Singh DO dextrose 50 % solution 12.5 g 12.5 g IntraVENous PRN Erasmo Singh DO gabapentin (Neurontin) capsule 200 mg 200 mg Oral Nightly Erasmo Singh DO glucagon (human recombinant) injection 1 mg 1 mg IntraMUSCular PRN Erasmo Singh DO glucose oral gel 15 g 15 g Oral PRN Erasmo Singh DO heparin injection 5,000 Units 5,000 Units SubCUTAneous 2 times per day Erasmo Singh DO 5,000 Units at 11/25/242107 labetalol (Normodyne,Trandate) injection 10 mg 10 mg IntraVENous q10 min PRN Erasmo Singh DO metoprolol tartrate (Lopressor) tablet 25 mg 25 mg Oral BID Erasmo Singh DO naloxone (Narcan) injection 0.4 mg 0.4 mg IntraVENous q5 min PRN Erasmo Singh DO ondansetron ODT (Zofran-ODT) disintegrating tablet 4 mg 4 mg Oral q8h PRN Erasmo Singh DO Or ondansetron (Zofran) injection 4 mg 4 mg IntraVENous q6h PRN Erasmo Singh DO polyethylene glycol (PEG) 3350 (Miralax) packet 17 g 17 g Oral Daily PRN Erasmo Singh DO sodium chloride 0.9 % infusion 5-250 mL/hr IntraVENous PRN Erasmo Singh DO sodium chloride 0.9 % infusion 50 mL/hr IntraVENous Continuous Erasmo Singh DO 50 mL/hr at 11/25/24 0702 50 mL/hr at 11/25/24 0702 sodium chloride 0.9% (NS) flush 5-40 mL 5-40 mL IntraVENous q12h Erasmo Singh DO sodium chloride 0.9% (NS) flush 5-40 mL 5-40 mL IntraVENous PRN Erasmo Singh DO tamsulosin (Flomax) 24 hr capsule 0.4 mg 0.4 mg Oral Daily Erasmo Singh DO [facility] 11-25-2024 Plan of care note Problem: Knowledge Deficit Goal: Patient/family/caregiver demonstrates understanding of disease process, treatment plan, medications, and discharge instructions 11/25/20241616 by aKtheryn Wong RN Outcome: Progressing 11/25/2024 1009 by Katheryn Wong RN Outcome: Progressing Problem: Neurological Deficit Goal: Neurological status is stable or improving 11/25/20241616 by Katheryn Wong RN Outcome: Progressing 11/25/2024 1009 by Katheryn Wong RN Outcome: Progressing Problem: Activity Intolerance/Impaired Mobility Goal: Mobility/activity is maintained at optimum level for patient 11/25/2024 1617 by Katheryn Wong RN Outcome: Progressing 11/25/2024 1009 by Katheryn Wong RN Outcome: Progressing Problem: Potential for Aspiration Goal: Non-ventilated patient's risk of aspiration is minimized 11/25/2024 1617 by Katheryn Wong RN Outcome: Progressing 11/25/2024 1009 by Katheryn Wong RN Outcome: Progressing [facility] 11-25-2024 Consult note Formatting of th is note is different from the original. Images from the original note were not included. Internal Medicine: MICU Initial History and Physical Name: Franklin Burton : 1945(79 y.o.) Date: 11/25/24 Attending: Dr. Ruiz Subjective: Chief Complaint: AMS HPI: 79 y/o M with PMHx ESRD on iHD, BPH, T2DM, Obesity, ROYAL, RLS, GPA, HFpEF (EF 50% on 11/25/24), chronic back pain with neuropathy who presented to [facility] as a transfer from outside facility for evaluation of AMS. Pt admitted to the hospitalist service with neurology consult. Plan is for EEG and MRI for further evaluation. However, the patient was notably too agitated for these studies to be completed. ICU consulted for admission for control of agitation. On review of chart, VSS. CMP consistent with h/o kidney disease. B12 WNL. CBC shows chronic stable anemia and thrombocytosis. CT head shows chronic small vessel changes without acute changes. Blood cx pending. Troponin normal. UA ordered. Ammonia normal. On evaluation by MICU team, the patient is clearly encephalopathic. He appears uncomfortable and has spontaneous movement of all four extremities. The patient is unable to answer questions or provide history. He does occasionally speak words that are comprehensible, but are notably inappropriate. Family at bedside provides additional history. reports that the patient woke up yesterday morning feeling his normal self. She denies recent illness. He did go to his scheduled dialysis and was able to complete the session. He was notably tired afterwards, but the states that this is not uncommon for him. That evening, his mental status became altered. This persisted into the next morning which prompted his visit to the emergency department. They deny any recent medication changes. His only complaint to them was some acute on chronic musculoskeletal back pain. They report that he was possibly not eating and drinking as well as he normally does. He was having regular bowel movements. Medical History[1] Surgical History[2] Family History[3] Social History Socioeconomic History Marital status: Spouse name: Not on file Number of children: Not on file Years of education: Not on file Highest education level: Not on file Occupational History Not on file Tobacco Use Smoking status: Former Current packs/day: 0.00 Average packs/day: 1 pack/day for 19.0 years (19.0 ttl pk-yrs) Types: Cigarettes Start date: 07/08/1962 Quit date: 07/26/1981 Years since quittin.3 Smokeless tobacco: Never Vaping Use Vaping status: Never Used Substance and Sexual Activity Alcohol use: Never Drug use: Never Sexual activity: Not on file Comment: Other Topics Concern Not on file Social History Narrative Not on file Social Drivers of Health Financial Resource Strain: Low Risk (03/04/2023) Received from [facility] Overall Financial Resource Strain (CARDIA) Difficulty of Paying Living Expenses: Not hard at all Food Insecurity: No Food Insecurity (03/04/2023) Received from [facility] Hunger Vital Sign Worried About Running Out of Food in the Last Year: Never true Ran Out of Food in the Last Year: Never true Transportation Needs: No Transportation Needs (03/04/2023) Received from [facility] PRAPARE - Transportation Lack of Transportation (Medical): No Lack of Transportation (Non-Medical): No Physical Activity: Not on file Stress: Not on file Social Connections: Not on file Intimate Partner Violence: Not on file Housing Stability: Unknown (03/04/2023) Received from [facility] Housing Stability Vital Sign Unable to Pay for Housing in the Last Year: No Number of Places Lived in the Last Year: Not on file Unstable Housing in the Last Year: No Allergies[4] Prior to Admission medications Medication Sig Start Date End Date Taking? Authorizing Provider acetaminophen (Tylenol Extra Strength) 500 MG tablet every 6 hours. Historical Provider, azaTHIOprine (Imuran) 50 MG tablet Daily with lunch. 12/04/20 Historical Provider, finasteride (Proscar) 5 MG tablet Take 5 mg by mouth daily. Do not crush, chew, or split. Historical Provider, gabapentin (Neurontin) 100 MG capsule Take 2 capsules by mouth Nightly. 03/04/22 Historical Provider, metoprolol tartrate (Lopressor) 25 MG tablet every 12 hours. Historical Provider, mirtazapine (Remeron) 15 MG tablet Take 15 mg by mouth Nightly. Historical Provider, omeprazole (PriLOSEC) [address] capsule Take 1 capsule (40 mg) by mouth daily. 10/15/22 Rahel Mendez MD pregabalin (Lyrica) 25 MG capsule Take 25 mg by mouth 2 times daily. Historical Provider, tamsulosin (Flomax) 0.4 MG 24 hr capsule Every 24 hours. Historical Provider, oxyCODONE-acetaminophen (Percocet) 5-325 MG tablet Take 1 tablet by mouth every 8 hours as needed for severe pain (7-10) or moderate pain (4-6). 11/25/24 Historical Provider, Objective: Oxygen Delivery: O2 Flow Rate (L/min): 2 L/min VITALS: BP (!) 168/101 (BP Location: Right arm, Patient Position: Lying) Pulse 97 Temp 36.3 C (97.4 F) (Temporal) Resp 20 Ht 1.727 m (5' 8") Wt 103 kg (228 lb) SpO2 94% BMI 34.67 kg/m CURRENT PULSE OXIMETRY: SpO2: 94 % Review of Systems Unable to perform ROS: Mental status change Constitutional: General Appearance [x]WDWN []Obese []Cachectic []Thin []Ill Eyes: Inspection of Pupils/Irises Pupils round and react: [x]Yes []No Sclera: []Icteric [x]Non-Icteric Inspection of Conjunctiva/Lids Conjunctiva: []Injected []Non-Injected Lids: [x]Intact []Lesion Present ENT/Mouth: External Inspection of ears/nose [] Normal [] Scar/Lesion/Mass Inspection of teeth/lips/gums Dentition: [][place] Teeth []Dentures Lips/Gums: [x]Intact []Lesion Present Mucosa: [][place] []Moist [x]Dry Neck: External Appearance Overall Appearance: [x]Normal []Lesion/Mass/Crepitus Present Trachea midline: []Yes []No Thyroid []Normal []Enlarged []Tender []Mass []Absent Respiratory: Respiratory effort []Labored [x]Non-Labored [] Mechanically-Ventilated Auscultation [x]Clear []Crackles []Wheezes []Rhonchi Cardiovascular: Auscultation Rate: []Regular []Irregular [x]Tachycardia []Bradycardia Rhythm: [x]Regular []Irregular Murmur: []Present [x]Absent Extremities Peripheral Edema: []Present [x]Absent Varicosities: []Present []Absent Gastrointestinal: Abdomen Palpation: [x]Soft []Firm []Tender [x]Non-Tender []Distended [x]Non-distended Mass: []Present []Absent Bowel Sounds: [x]Present []Absent Hernia: []Present []Absent Liver/Spleen: []Hepatosplenomegaly []Organomegaly Absent Musculoskeletal: Inspection of Digits and Nails Cyanosis: []Present [x]Absent Clubbing: []Present []Absent Ischemia: []Present []Absent Infection: []Present []Absent Extremities CROOKS Equally: Except ([]RUE []RLE []LUE []LLE) Strength/Tone: Intact and Normal ([]RUE []RLE []LUE []LLE) Skin: Inspection [x]Normal []Rash []Lesion []Ulcer Palpation [x]Warm []Cool [x]Dry []Clammy []Nodules []Induration []Skin-tightening Cap-Refill: [] <3 sec [] >3 seconds (delayed) Neurologic: GCS EYE: 2 - Opens to pain GCS MOTOR: 5 - Localizes to pain (purposeful movements to painful stimulus) GCS VERBAL: 1 - No response Total GCS: 8 [] Sensation grossly intact Psych: Mental Status Alert: []Yes [] No Oriented: [x]x0 []X1 []X2 []x3 Mood/Affect []Normal []Flat [x]Agitated []Depressed []Anxious []Calm []Sedated []NAD [facility] within last 24 hours- BMP: Recent Labs 11/25/24 0702 NA 133* K 4.6 CL 101 CO2 27 BUN 13 CREATININE 3.06* CALCIUM 9.2 LFTs: Recent Labs 11/25/24 07 AST 22 ALT 13 PROT 6.8 ALBUMIN 3.7 BILITOT 0.6 ALKPHOS 81 Glucose: Recent Labs 11/25/24 07 GLUCOSE 103 Procal: No results for input(s): "PROCAL" in the last 72 hours. CBC: Recent Labs 11/25/24 07 WBC 6.3 HGB 11.3* HCT 35.2* PLT 114* MCV 95.9 RDW 13.2 ABGs: No results for input(s): "PHART", "SDV8PJV", "PO2ART", "UMU2LND", "SO2ART", "S2ORRXIS" in the last 72 hours. Lactic Acid: No results for input(s): "LACTATE" in the last 72 hours. INR: No results for input(s): "INR" in the last 72 hours. Cardiac Injury Profile: No results for input(s): "CKTOTAL", "CKMB", "TROPONINI" in the last 72 hours. Labs in Last 3 months: Lab Results Component Value Date TSH 3.739 04/09/2021 VITD25 46 04/19/2019 INR 1.2 03/05/2023 Microbiology- Urine Cx: No results found for: URINECX Blood Cx: Lab Results Component Value Date BLOODCX Blood culture incubation started 11/25/2024 Sputum Cx: No results found for: RESPCULT Gram Stain: No results found for: LABGRAM PNA PCR: No results found for: HUMANMETAPNE COVID19: No results found for: COVID19 Legionella Ag: No results found for: "LEGIONELLAPN" Strep Ag: No results for input(s): "STREPPNEUMO" in the last 72 hours. Imaging- CT head wo IV contrast Final Result 1. No acute intracranial abnormality. 2. Diffuse cortical volume loss and chronic small vessel ischemic changes. Report Dictated on Electronically Signed By: Mehreen Vargas MD Electronically Signed Date/Time: 11/25/2024 11:35 AM EDT XR abdomen 1 view Final Result No findings that preclude MR imaging. Report Dictated on Electronically Signed By: Mehreen Vargas MD Electronically Signed Date/Time: 11/25/2024 12:22 PM EDT MR brain wo contrast (Results Pending) XR chest 1 view (Results Pending) Assessment and Plan: Principal Problem: Stroke-like symptoms Active Problems: Stroke-like symptom Assessment: Encephalopathy of unclear etiology ESRD on iHD (M/W/Fr) Chronic stable anemia Thrombocytopenia Chronic back pain with neuropathy Hx of T2DM ROYAL Hx of RLS HFpEF Plan: Admit to T3 Precedex for agitation. Avoid benzos MRI and cEEG per neuro Will need LP at some point Monitor on telemetry Daily labs Nephrology consult for iHD Neurology to follow NPO. Hold PO meds for now. 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 Pt not on insulin therapy. Glucose checks with hypoglycemia protocol GI Prophylaxis: Not indicated DVT Prophylaxis: Heparin subcutaneous BMI Classification: Body mass index is 34.67 kg/m . obesity BMI 30-39.9 Disposition: Remain in ICU Status [1] Past Medical History: Diagnosis Date Allergic rhinitis BPH (benign prostatic hyperplasia) BPH (benign prostatic hyperplasia) CHF (congestive heart failure) (HCC) Chronic back pain Chronic kidney disease Chronic systolic heart failure (HCC) 06/05/2020 Compression fracture spring 2014 T12 Diabetes mellitus without complication (CMS/HCC) (HCC) 07/24/2016 no diabetes GERD (gastroesophageal reflux disease) [place] (hard of hearing) 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 Hypertension Indwelling Osorio catheter present Obesity ROYAL (obstructive sleep apnea) Osteoarthritis Restless legs syndrome Status post right hip replacement 03/19/2016 Urge incontinence 07/24/2016 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HCC) [2] Past Surgical History: Procedure Laterality Date CATARACT EXTRACTION Bilateral COLONOSCOPY COLONOSCOPY 01/02/2016 Repeat in 3 years, colon polyps, diverticulosis and internal hemorrhoid COLONOSCOPY 08/24/2017 by Joana Moreno, repeat in 5 years, diverticulosis, internal hemorrhoid EYE SURGERY HIP ARTHROPLASTY Right 02/05/2016 right hip HX AV FISTULA CREATION Left 02/20/2021 JOINT REPLACEMENT KNEE ARTHROSCOPY Left 1988 ORTHOPEDIC SURGERY Left 1989 knee- left knee mensicus arthroscopic surgery PROSTATE BIOPSY 01/11/2014 trus bx- negative RENAL BIOPSY 12/2013 TRANSURETHRAL RESECTION OF PROSTATE 04/06/2020 Button TURP. [place] UPPER GASTROINTESTINAL ENDOSCOPY 01/02/2016 gasttitis, duodentits, GERD with esophagitis UPPER GASTROINTESTINAL ENDOSCOPY 08/22/[address] Bernard, no BE , gastritis, duodenitis and esophagus WISDOM TOOTH EXTRACTION [3] Family History Problem Relation Name Age of Onset Bleeding Prob Other Diabetes Maternal Grandmother Colon cancer Sister 70.00 Colon cancer Brother Tucker 70.00 Prostate cancer Father Lung cancer Father Heart failure Mother Heart disease Mother [4] Allergies Allergen Reactions Aspirin Other Cannot have due to kidney disease Other reaction(s): cannot take d/t Azch's Vasculitis Kidney issues Other Other reaction(s): Other: See Comments Sneezing, itchy and watery eyes Cosigned by Fawad Ruiz MD at 11/25/2024 8:48 PM EDT Associated attestation - Fawad Ruiz MD - 11/25/2024 8:48 PM EDT Attending Supervising Physician's Attestation Statement for ICU Admission I have personally seen the patient and examined along with the resident. I personally obtained the jorge and relevent portions of the history and performed physical exam. I reviewed the chart including MAR, labs, and radiology and agree with the patient's plan of action as discussed with the resident. This note reflects my plan of care as I have edited the note to reflect my findings and my assessment and plan. ROS documentation was reviewed and negative unless otherwise stated in HPI. Chief Complaint: Acute Metabolic Encephalopathy Additional pertinent history, ROS, and physical exam findings: 79 yo M PMH ESRD on HD, BPH, DMII, obesity, ROYAL, RLS, HFpEF 50% who presented from outside facility with altered mental status. Admitted for neurology evaluation and further work up however patient persistently agitated prohibiting further work up. CT head demonstrated chronic small vessel changes. Metabolic encephalopathy work up including ammonia, troponin, and B12 were normal. Neurology requesting MRI brain, cEEG monitoring however patient unable to cooperate and agitated prohibiting evaluation. Per reports patient treated with ativan however had not received any anti-psychotics while on the floor. ICU consulted for management of agitation. Patient seen and examined upon transfer to ICU. Awake, alert, calm. Denies acute complaints. Pleasantly confused but not agitated or aggressive. Non-labored breathing. Physical Exam Constitutional: General Appearance [x]Elderly []Obese []Cachectic []Thin []Ill Eyes: Inspection of Pupils/Irises Pupils round and react: [x]Yes []No Sclera: []Icteric [x]Non-Icteric Inspection of Conjunctiva/Lids Conjunctiva: []Injected [x]Non-Injected Lids: [x]Intact []Lesion Present ENT/Mouth: External Inspection of ears/nose [x] Normal [] Scar/Lesion/Mass Inspection of teeth/lips/gums Dentition: [][place] Teeth []Dentures Lips/Gums: [x]Intact []Lesion Present Mucosa: [x][place] [x]Moist []Dry Neck: External Appearance Overall Appearance: [x]Normal []Lesion/Mass/Crepitus Present Trachea midline: [x]Yes []No Thyroid [x]Normal []Enlarged []Tender []Mass []Absent Respiratory: Respiratory effort []Labored [x]Non-Labored [] Mechanically-Ventilated Auscultation [x]Clear []Crackles []Wheezes []Rhonchi Cardiovascular: Auscultation Rate: [x]Regular []Irregular []Tachycardia []Bradycardia Rhythm: [x]Regular []Irregular Murmur: []Present [x]Absent Extremities Peripheral Edema: []Present [x]Absent Varicosities: []Present []Absent Gastrointestinal: Abdomen Palpation: [x]Soft []Firm []Tender [x]Non-Tender []Distended [x]Non-distended Mass: []Present [x]Absent Bowel Sounds: [x]Present []Absent Hernia: []Present []Absent Liver/Spleen: []Hepatosplenomegaly []Organomegaly Absent Musculoskeletal: Inspection of Digits and Nails Cyanosis: []Present [x]Absent Clubbing: []Present [x]Absent Ischemia: []Present [x]Absent Infection: []Present [x]Absent Extremities CROOKS Equally: Except ([]RUE []RLE []LUE []LLE) Strength/Tone: Intact and Normal ([x]RUE [x]RLE [x]LUE [x]LLE) Skin: Inspection [x]Normal []Rash []Lesion []Ulcer Palpation [x]Warm []Cool []Dry []Clammy []Nodules []Induration []Skin-tightening Cap-Refill: [x] <3 sec [] >3 seconds (delayed) Neurologic: GCS EYE: 4 - Opens spontaneously GCS MOTOR: 6 - Obeys commands for movement GCS VERBAL: 4 - Confused Total GCS: 14 [x] Sensation grossly intact Psych: Mental Status Alert: [x]Yes [] No Oriented: []x0 [x]X1 []X2 []x3 Mood/Affect [x]Normal []Flat []Agitated []Depressed []Anxious []Calm []Sedated []NAD Assessment and Plan: Acute Encephalopathy - unclear etiology ESRD on HD MWF Chronic anemia Thrombocytopenia Back pain with neuropathy DMII without hyperglycemia Hx ROYAL Hx RLS HFpEF - Transfer to ICU - Avoid benzodiazepines given concern for worsening delirium - can start precedex for agitation however not requiring as of yet - plan for cEEG monitoring and MRI - will need LP in coming days, follow initial studies. - Nephrology following for HD - NeuroCC consulted - NPO pending improvement. - speech eval - continue home eval Code Status: DNR-CCA, ok for intubation Disposition: Transfer to ICU Time spent preparing to see the patient, obtaining/reviewing separately obtained history, completing an appropriate medical examination of the patient, ordering medications/tests/procedures, documenting clinical information on the EMR, and/or coordinating care is an initial visit: 75 minutes (Level III). Fawad Ruiz MD Pulmonary and Critical Care Medicine Attending Pager #[phone] [facility] 11-25-2024 Note Formatting of this n ote might be different from the original. Care Management Progress Note Short Medical why still here: PT Direct admit from [facility], where the stroke neurologist determined that he was not having any LVO based on CTA and did not need TNK. Transferred to [facility] for further stroke work up related to Worsening facial droop. NIH 1, continued AMS. Pt with hx of CKD on HD. Cr-3.06, Hyponatremia 133, HTN 160's /100's. Nephro and stroke team consulted stroke workup ordered. PT agitated and uncooperative with care. MRI, TTE and EEG pending. TCC attempted to meet with patient or family. Pt was out of room . TCC will check back later and attempt to contact family via telephone. Pt has health ins. And prescription drug cov. Pt has a PCP. Planned Discharge Disposition: Home or Self Care Barriers/Today we still Wait: Clinical stability Length of Stay (Days): 0 GMLOS: No GMLOS Documented TCC to follow for discharge needs. [facility] 11-25-2024 Note Formatting of this n ote might be different from the original. Care Management Progress Note Short Medical why still here: PT Direct admit from [facility], where the stroke neurologist determined that he was not having any LVO based on CTA and did not need TNK. Transferred to [facility] for further stroke work up related to Worsening facial droop. NIH 1, continued AMS. Pt with hx of CKD on HD. Cr-3.06, Hyponatremia 133, HTN 160's /100's. Nephro and stroke team consulted stroke workup ordered. PT agitated and uncooperative with care. MRI, TTE and EEG pending. TCC attempted to meet with patient or family. Pt was out of room . TCC will check back later and attempt to contact family via telephone. Pt has health ins. And prescription drug cov. Pt has a PCP. Planned Discharge Disposition: Home or Self Care Barriers/Today we still Wait: Clinical stability Length of Stay (Days): 0 GMLOS: No GMLOS Documented TCC to follow for discharge needs. [facility] 11-25-2024 Note Care Management Prog ress Note Short Medical why still here: PT Direct admit from [facility], where the stroke neurologist determined that he was not having any LVO based on CTA and did not need TNK. Transferred to [facility] for further stroke work up related to Worsening facial droop. NIH 1, continued AMS. Pt with hx of CKD on HD. Cr-3.06, Hyponatremia 133, HTN 160's /100's. Nephro and stroke team consulted stroke workup ordered. PT agitated and uncooperative with care. MRI, TTE and EEG pending. TCC attempted to meet with patient or family. Pt was out of room . TCC will check back later and attempt to contact family via telephone. Pt has health ins. And prescription drug cov. Pt has a PCP. Planned Discharge Disposition: Home or Self Care Barriers/Today we still Wait: Clinical stability Length of Stay (Days): 0 GMLOS: No GMLOS Documented TCC to follow for discharge needs. [facility] 11-25-2024 Note 2nd attempt to compl ete routine EEG, pt uncooperative. Will attempt again tomorrow [facility] 11-25-2024 Procedure note 2nd attempt to complete routine EEG, pt uncooperative. Will attempt again tomorrow [facility] 11-25-2024 Consult note Associated Order (s): IP CONSULT TO NEPHROLOGY Images from the original note were not included. Nephrology Consult Note Patient: Franklin Burton Room number: [id number] A Date of Admit: 11/25/2024 LOS: 0 days Referring physician: Taylor Weinberg MD Outpatient Armored Car Guard: [facility] Reason for Consult ESRD on HD Chief complaint: AMS Assessment / Plan Franklin Burton is a 79 y.o. male with a past medical history of ESRD on HD MWF at [facility], GPA, DM type 2, HTN, HFrEF, BPH, GERD, ROYAL, OA, obesity, RLS, neuropathy, who was brought in from OSH due to AMS. Pt had HD yesterday and went home, then woke up agitated, feeling nauseated and confused. Renal plan: 1-ESRD on HD: -will plan for next HD tomorrow -he is on gabapentin, lyrica discontinued -would be careful with hydration, currently on NS @ 50 ml/hr -will obtain records from dialysis facility 2-Anemia: -Hgb 11.3, above goal -hold JENNIFER 3-QAMAR: -last Ca was 9.2 -will check a phosphorus level 4-BP/volume status: -last BP was 168/101 -he is on metoprolol 25 mg bid -TTE ordered -will investigate EDW 5-AMS: -neuro following -MRI planned -critical care consulted 6-ID: -blood cx sent -consider checking urine studies -not on Abs currently -he is on azathioprine Thank you for allowing us to participate in the care of this patient. Please call with any questions. Aleyda Martinez MD [facility] ([facility]) Office phone: [phone] Office fax: [phone] 11/25/2024 History of Present Illness Franklin Burton is a 79 y.o. male with a past medical history of ESRD on HD MWF at [facility], GPA, DM type 2, HTN, HFrEF, BPH, GERD, ROYAL, OA, obesity, RLS, neuropathy, who was brought in from OSH due to AMS. Pt had HD yesterday and went home, then woke up agitated, feeling nauseated and confused. He was brought to [facility], then here to [facility]. Upon transfer here, his temp was 97.7 HR 93 RR 18 BP 154/87 and O2sat 95% on 2 L NC. Neurology was consulted and imaging was obtained. Spouse and family are at bedside this afternoon. They report he has had about 3-4 episodes where this has happened before. Last one was about 1 year ago. This has been the most severe one. They report he was otherwise doing ok over the last several days but complained of severe back pain. They didn't notice any fever or chills. He still makes urine, he didn't have any complaints about urination. Family reports prior hospitalizations this year for prostate issues. They can't comment on new medication changes, they said sister is the one who manages meds and she is [place] of state. Home Medications: reviewed. Past Medical History Allergic rhinitis BPH (benign prostatic hyperplasia) BPH (benign prostatic hyperplasia) CHF (congestive heart failure) (HCC) Chronic back pain Chronic kidney disease Chronic systolic heart failure (HCC) 06/05/2020 Compression fracture spring 2014 T12 Diabetes mellitus without complication (CMS/HCC) (HCC) 07/24/2016 no diabetes GERD (gastroesophageal reflux disease) [place] (hard of hearing) 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 Hypertension Indwelling Osorio catheter present Obesity ROYAL (obstructive sleep apnea) Osteoarthritis Restless legs syndrome Status post right hip replacement 03/19/2016 Urge incontinence 07/24/2016 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HCC) Past Surgical History CATARACT EXTRACTION Bilateral COLONOSCOPY COLONOSCOPY 01/02/2016 Repeat in 3 years, colon polyps, diverticulosis and internal hemorrhoid COLONOSCOPY 08/24/2017 by Joana Moreno, repeat in 5 years, diverticulosis, internal hemorrhoid EYE SURGERY HIP ARTHROPLASTY Right 02/05/2016 right hip HX AV FISTULA CREATION Left 02/20/2021 JOINT REPLACEMENT KNEE ARTHROSCOPY Left 1988 ORTHOPEDIC SURGERY Left 1989 knee- left knee mensicus arthroscopic surgery PROSTATE BIOPSY 01/11/2014 trus bx- negative RENAL BIOPSY 12/2013 TRANSURETHRAL RESECTION OF PROSTATE 04/06/2020 Button TURP. [place] UPPER GASTROINTESTINAL ENDOSCOPY 01/02/2016 gasttitis, duodentits, GERD with esophagitis UPPER GASTROINTESTINAL ENDOSCOPY 08/22/[address] Bernard, no BE , gastritis, duodenitis and esophagus WISDOM TOOTH EXTRACTION Family History Bleeding Prob Other Diabetes Maternal Grandmother Colon cancer Sister 70.00 Colon cancer Brother Norris 70.00 Prostate cancer Father Lung cancer Father Heart failure Mother Heart disease Mother Social History Social History[1] Medications Scheduled Meds:Scheduled Meds[2] Continuous Infusions:Continuous Meds[3] Allergies Allergies[4] Review of Systems Unable to obtain Vital Signs Vitals: 11/25/24 0606 11/25/24 1023 11/25/24 1336 BP: 154/87 (!) 168/101 BP Location: Right arm Patient Position: Lying Pulse: 93 97 Resp: 18 20 Temp: 36.5 C (97.7 F) 36.3 C (97.4 F) TempSrc: Temporal Temporal SpO2: 95% 94% Weight: 103 kg (228 lb) Height: 1.727 m (5' 8") Wt Readings from Last 3 Encounters: 11/25/24 103 kg (228 lb) 08/07/23 103 kg (228 lb) 01/09/23 96.6 kg (213 lb) Admit Wt: Weight: 103 kg (228 lb) Estimated body mass index is 34.67 kg/m as calculated from the following: Height as of this encounter: 1.727 m (5' 8"). Weight as of this encounter: 103 kg (228 lb). Physical Exam General: lethargic, restless, eyes closed, doesn't follow commands HEENT: Sclera clear, EOMI, MMM, Nose/ears/hearing grossly normal Neck: Supple, trachea midline, no mass Chest: Normal excusion Heart: RRR, no rub/heave Lungs: Clear bilaterally, unlabored Abd: Soft, (+) BS, non-tender, non distended Ext: No edema Neuro: No tremor/myoclonus Skin: warm and dry, no rash LUE AVF with thrill and bruit present LABS Labs reviewed. Recent Labs 11/25/24 0702 WBC 6.3 HGB 11.3* HCT 35.2* MCV 95.9 PLT 114* Recent Labs 11/25/24 0702 ALT 13 AST 22 ALKPHOS [address] head 11/25: 1. No acute intracranial abnormality. 2. Diffuse cortical volume loss and chronic small vessel ischemic changes. [1] Social History Socioeconomic History Marital status: Tobacco Use Smoking status: Former Current packs/day: 0.00 Average packs/day: 1 pack/day for 19.0 years (19.0 ttl pk-yrs) Types: Cigarettes Start date: 07/08/1962 Quit date: 07/26/1981 Years since quittin.3 Smokeless tobacco: Never Vaping Use Vaping status: Never Used Substance and Sexual Activity Alcohol use: Never Drug use: Never Social Drivers of Health Financial Resource Strain: Low Risk (03/04/2023) Received from [facility] Overall Financial Resource Strain (CARDIA) Difficulty of Paying Living Expenses: Not hard at all Food Insecurity: No Food Insecurity (03/04/2023) Received from [facility] Hunger Vital Sign Worried About Running Out of Food in the Last Year: Never true Ran Out of Food in the Last Year: Never true Transportation Needs: No Transportation Needs (03/04/2023) Received from [facility] PRAPARE - Transportation Lack of Transportation (Medical): No Lack of Transportation (Non-Medical): No Housing Stability: Unknown (03/04/2023) Received from [facility] Housing Stability Vital Sign Unable to Pay for Housing in the Last Year: No Unstable Housing in the Last Year: No [2] acetaminophen, 650 mg, IntraVENous, Once atorvastatin, 40 mg, Oral, Nightly azaTHIOprine, 50 mg, Oral, Lunch clopidogrel, 75 mg, Oral, Daily gabapentin, 200 mg, Oral, Nightly haloperidol lactate, 5 mg, IntraVENous, Once heparin, 5,000 Units, SubCUTAneous, 2 times per day metoprolol tartrate, 25 mg, Oral, BID sodium chloride 0.9%, 5-40 mL, IntraVENous, q12h tamsulosin, 0.4 mg, Oral, Daily [3] sodium chloride, 50 mL/hr, Last Rate: 50 mL/hr (11/25/24 0702) [4] Allergies Allergen Reactions Aspirin Other Cannot have due to kidney disease Other reaction(s): cannot take d/t Zach's Vasculitis Kidney issues Other Other reaction(s): Other: See Comments Sneezing, itchy and watery eyes [facility] 11-25-2024 History and physical note Attending History and Physical Admit Date: 11/25/2024 PCP: Matilde Noguera MD CHIEF COMPLAINT: Transferred from outside hospital for altered mental status Reason for Admission: Altered mental status History Obtained From: Medical records, patient's family HISTORY OF PRESENT ILLNESS: Franklin is a 79 y.o. male with past medical history below who was transferred from outside hospital for altered mentation. Patient not able to provide any history. Family at bedside. Reported that a few hours after dialysis patient became confused. Not coherent. Family reports having same episodes previously as well after dialysis. Which seems to have improved much earlier rather than this time. No fever. No recent travel no sick contacts family has not noticed any seizures. Patient evaluated at outside hospital and transferred to [facility] for further evaluation management Upon my evaluation, patient not opening eyes, saying he wants to pee. Labs noted today creatinine 3.0, sodium 133, troponin negative, ammonia 20, WBC 6.3, platelets 104 CT head IMPRESSION: 1. No acute intracranial abnormality. 2. Diffuse cortical volume loss and chronic small vessel ischemic changes. Neurology has been consulted. Patient has been evaluated by neurology team. Past Medical History: Medical History[1] Past Surgical History: Surgical History[2] Social History: Social History Socioeconomic History Marital status: Spouse name: Not on file Number of children: Not on file Years of education: Not on file Highest education level: Not on file Occupational History Not on file Tobacco Use Smoking status: Former Current packs/day: 0.00 Average packs/day: 1 pack/day for 19.0 years (19.0 ttl pk-yrs) Types: Cigarettes Start date: 07/08/1962 Quit date: 07/26/1981 Years since quittin.3 Smokeless tobacco: Never Vaping Use Vaping status: Never Used Substance and Sexual Activity Alcohol use: Never Drug use: Never Sexual activity: Not on file Comment: Other Topics Concern Not on file Social History Narrative Not on file Social Drivers of Health Financial Resource Strain: Low Risk (03/04/2023) Received from [facility] Overall Financial Resource Strain (CARDIA) Difficulty of Paying Living Expenses: Not hard at all Food Insecurity: No Food Insecurity (03/04/2023) Received from [facility] Hunger Vital Sign Worried About Running Out of Food in the Last Year: Never true Ran Out of Food in the Last Year: Never true Transportation Needs: No Transportation Needs (03/04/2023) Received from [facility] PRAPARE - Transportation Lack of Transportation (Medical): No Lack of Transportation (Non-Medical): No Physical Activity: Not on file Stress: Not on file Social Connections: Not on file Intimate Partner Violence: Not on file Housing Stability: Unknown (03/04/2023) Received from [facility] Housing Stability Vital Sign Unable to Pay for Housing in the Last Year: No Number of Places Lived in the Last Year: Not on file Unstable Housing in the Last Year: No Family History: Family History[3] Medications Prior to Admission: Current Medications[4] Medications Reconciliation: Allergies: Allergies[5] REVIEW OF SYSTEMS: Review of system is limited obtained from the family Vitals: BP (!) 168/101 (BP Location: Right arm, Patient Position: Lying) Pulse 97 Temp 36.3 C (97.4 F) (Temporal) Resp 20 SpO2 94% BMI Classification: Obese (BMI 30.0-39.9) Pulse Ox: SpO2 Av.5 % Min: 94 % Max: 95 % Supplemental O2: O2 Flow Rate (L/min): 2 L/min PHYSICAL EXAM: Physical Exam General appearance: No apparent distress, HEENT: Eyes: No scleral icterus No pallor Oral: Tongue is semi-moist Cardiovascular: S1S2 heard, mildly tachycardic Respiratory: Decrease breath sound both bases Abdomen: Soft, non-distended with normal bowel sounds. Musculoskeletal: No obvious deformities seen Skin: No visible rashes or lesions. Neurology-confused, moving all extremities Extremity- no peripheral edema both lower extremities Left upper extremity AV fistula DATA: CBC: Recent Labs 11/25/24 0702 WBC 6.3 RBC 3.67* HGB 11.3* HCT 35.2* MCV 95.9 RDW 13.2 PLT 114* BMP: Recent Labs 11/25/24 0702 NA 133* K 4.6 CL 101 CO2 27 BUN 13 CREATININE 3.06* GLUCOSE 103 CALCIUM 9.2 ANIONGAP 5 LIVER PROFILE: Recent Labs 11/25/24 0702 AST 22 ALT 13 BILITOT 0.6 ALKPHOS 81 PROT 6.8 PT/INR: No results for input(s): "PROTIME", "INR" in the last 72 hours. CARDIAC ENZYMES: No results for input(s): "TROPONINI" in the last 72 hours. Procalcitonin: No results found for: "PROCAL" Urine Culture: No results found for this or any previous visit. COVID-19 PCR: No results for input(s): "COVID19" in the last 72 hours. I reviewed: [x] laboratory results [x] radiographic results At the time of today's encounter. Pt was advised of the results. Data: (LOW: 2x CAT1 or independent historian MOD: 3x CAT1 or 1x CAT3 EXTENSIVE: 3x CAT1 and 1x CAT3) Assessment Discussed management with the ED provider and agree with hospitalization. Acute, acute on chronic, unstable/uncontrolled chronic problems/diagnoses: Acute encephalopathy etiology unclear End-stage renal disease on hemodialysis Thrombocytopenia Stable chronic problems affecting care, new non-acute diagnoses: Medical History[6] Plan As a result of the above findings & factors, the following mgmt was pursued: - Patient will remain n.p.o. -Gentle IV fluids -Discussed with neurology Dr. Hebert, recommending to avoid IV narcotics, was given IV acetaminophen for questionable pain. -MRI brain pending, EEG pending -Consult nephrology for hemodialysis Consult geriatrics - am labs, replace lytes prn - PT/OT/CM/SW - delirium precautions: - DVT prophylaxis: Heparin subcu Discussed with patient family at bedside. Prognosis guarded Complexity: Risk: Advance Directive: Full Code Anticipated Discharge - Pending clinical course Taylor Weinberg MD Division of Hospitalist Medicine [facility] [1] Past Medical History: Diagnosis Date Allergic rhinitis BPH (benign prostatic hyperplasia) BPH (benign prostatic hyperplasia) CHF (congestive heart failure) ([facility]) Chronic back pain Chronic kidney disease Chronic systolic heart failure (HCC) 06/05/2020 Compression fracture spring 2014 T12 Diabetes mellitus without complication (CMS/HCC) (HCC) 07/24/2016 no diabetes GERD (gastroesophageal reflux disease) [place] (hard of hearing) 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 Hypertension Indwelling Osorio catheter present Obesity ROYAL (obstructive sleep apnea) Osteoarthritis Restless legs syndrome Status post right hip replacement 03/19/2016 Urge incontinence 07/24/2016 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[facility]) [2] Past Surgical History: Procedure Laterality Date CATARACT EXTRACTION Bilateral COLONOSCOPY COLONOSCOPY 01/02/2016 Repeat in 3 years, colon polyps, diverticulosis and internal hemorrhoid COLONOSCOPY 08/24/2017 by Joana Moreno, repeat in 5 years, diverticulosis, internal hemorrhoid EYE SURGERY HIP ARTHROPLASTY Right 02/05/2016 right hip HX AV FISTULA CREATION Left 02/20/2021 JOINT REPLACEMENT KNEE ARTHROSCOPY Left 1988 ORTHOPEDIC SURGERY Left 1989 knee- left knee mensicus arthroscopic surgery PROSTATE BIOPSY 01/11/2014 trus bx- negative RENAL BIOPSY 12/2013 TRANSURETHRAL RESECTION OF PROSTATE 04/06/2020 Button TURP. [place] UPPER GASTROINTESTINAL ENDOSCOPY 01/02/2016 gasttitis, duodentits, GERD with esophagitis UPPER GASTROINTESTINAL ENDOSCOPY 08/22/[address] Bernard, no BE , gastritis, duodenitis and esophagus WISDOM TOOTH EXTRACTION [3] Family History Problem Relation Name Age of Onset Bleeding Prob Other Diabetes Maternal Grandmother Colon cancer Sister 70.00 Colon cancer Brother Tucker 70.00 Prostate cancer Father Lung cancer Father Heart failure Mother Heart disease Mother [4] Current Facility-Administered Medications: acetaminophen (Ofirmev) 650 mg 65 mL IVPB, 650 mg, IntraVENous, Once, Taylor Weinberg MD acetaminophen (Tylenol) tablet 650 mg, 650 mg, Oral, q6h PRN OR acetaminophen (Tylenol) suppository 650 mg, 650 mg, Rectal, q6h PRN, Daniel Marshall MD atorvastatin (Lipitor) tablet 40 mg, 40 mg, Oral, Nightly, Daniel Marshall MD azaTHIOprine (Imuran) tablet 50 mg, 50 mg, Oral, Lunch, Daniel Marshall MD bisacodyl (Dulcolax) suppository 10 mg, 10 mg, Rectal, Daily PRN, Daniel Marshall MD clopidogrel (Plavix) tablet 75 mg, 75 mg, Oral, Daily, Daniel Marshall MD gabapentin (Neurontin) capsule 200 mg, 200 mg, Oral, Nightly, Daniel Marshall MD heparin injection 5,000 Units, 5,000 Units, SubCUTAneous, 2 times per day, Daniel Marshall MD labetalol (Normodyne,Trandate) injection 10 mg, 10 mg, IntraVENous, q10 min PRN, Daniel Marshall MD metoprolol tartrate (Lopressor) tablet 25 mg, 25 mg, Oral, BID, Daniel Marshall MD ondansetron ODT (Zofran-ODT) disintegrating tablet 4 mg, 4 mg, Oral, q8h PRN OR ondansetron (Zofran) injection 4 mg, 4 mg, IntraVENous, q6h PRN, Daniel Marshall MD polyethylene glycol (PEG) 3350 (Miralax) packet 17 g, 17 g, Oral, Daily PRN, Daniel Marshall MD pregabalin (Lyrica) capsule 25 mg, 25 mg, Oral, BID, Daniel Marshall MD QUEtiapine (SEROquel) tablet 12.5 mg, 12.5 mg, Oral, Once, Taylor Weinberg MD sodium chloride 0.9 % infusion, 5-250 mL/hr, IntraVENous, PRN, Daniel Marshall MD sodium chloride 0.9 % infusion, 50 mL/hr, IntraVENous, Continuous, Daniel Marshall MD, Last Rate: 50 mL/hr at 11/25/24 0702, 50 mL/hr at 11/25/24 0702 sodium chloride 0.9% (NS) flush 5-40 mL, 5-40 mL, IntraVENous, q12h, Daniel Marshall MD sodium chloride 0.9% (NS) flush 5-40 mL, 5-40 mL, IntraVENous, PRN, Daniel Marshall MD tamsulosin (Flomax) 24 hr capsule 0.4 mg, 0.4 mg, Oral, Daily, Daniel Marshall MD [5] Allergies Allergen Reactions Aspirin Other Cannot have due to kidney disease Other reaction(s): cannot take d/t Zach's Vasculitis Kidney issues Other Other reaction(s): Other: See Comments Sneezing, itchy and watery eyes [6] Past Medical History: Diagnosis Date Allergic rhinitis BPH (benign prostatic hyperplasia) BPH (benign prostatic hyperplasia) CHF (congestive heart failure) ([facility]) Chronic back pain Chronic kidney disease Chronic systolic heart failure ([facility]) 06/05/2020 Compression fracture spring 2014 T12 Diabetes mellitus without complication ([facility]/HCC) (HCC) 07/24/2016 no diabetes GERD (gastroesophageal reflux disease) [place] (hard of hearing) 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 Hypertension Indwelling Osorio catheter present Obesity ROYAL (obstructive sleep apnea) Osteoarthritis Restless legs syndrome Status post right hip replacement 03/19/2016 Urge incontinence 07/24/2016 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[facility]) WhatsApp Phone: 11-25-2024 Note Attending History an d Physical Admit Date: 11/25/2024 PCP: Matilde Noguera MD CHIEF COMPLAINT: Transferred from outside hospital for altered mental status Reason for Admission: Altered mental status History Obtained From: Medical records, patient's family HISTORY OF PRESENT ILLNESS: Franklin is a 79 y.o. male with past medical history below who was transferred from outside hospital for altered mentation. Patient not able to provide any history. Family at bedside. Reported that a few hours after dialysis patient became confused. Not coherent. Family reports having same episodes previously as well after dialysis. Which seems to have improved much earlier rather than this time. No fever. No recent travel no sick contacts family has not noticed any seizures. Patient evaluated at outside hospital and transferred to [facility] for further evaluation management Upon my evaluation, patient not opening eyes, saying he wants to pee. Labs noted today creatinine 3.0, sodium 133, troponin negative, ammonia 20, WBC 6.3, platelets 104 CT head IMPRESSION: 1. No acute intracranial abnormality. 2. Diffuse cortical volume loss and chronic small vessel ischemic changes. Neurology has been consulted. Patient has been evaluated by neurology team. Past Medical History: Medical History[1] Past Surgical History: Surgical History[2] Social History: Social History Socioeconomic History Marital status: Spouse name: Not on file Number of children: Not on file Years of education: Not on file Highest education level: Not on file Occupational History Not on file Tobacco Use Smoking status: Former Current packs/day: 0.00 Average packs/day: 1 pack/day for 19.0 years (19.0 ttl pk-yrs) Types: Cigarettes Start date: 07/08/1962 Quit date: 07/26/1981 Years since quittin.3 Smokeless tobacco: Never Vaping Use Vaping status: Never Used Substance and Sexual Activity Alcohol use: Never Drug use: Never Sexual activity: Not on file Comment: Other Topics Concern Not on file Social History Narrative Not on file Social Drivers of Health Financial Resource Strain: Low Risk (03/04/2023) Received from [facility] Overall Financial Resource Strain (CARDIA) Difficulty of Paying Living Expenses: Not hard at all Food Insecurity: No Food Insecurity (03/04/2023) Received from [facility] Hunger Vital Sign Worried About Running Out of Food in the Last Year: Never true Ran Out of Food in the Last Year: Never true Transportation Needs: No Transportation Needs (03/04/2023) Received from [facility] PRAPARE - Transportation Lack of Transportation (Medical): No Lack of Transportation (Non-Medical): No Physical Activity: Not on file Stress: Not on file Social Connections: Not on file Intimate Partner Violence: Not on file Housing Stability: Unknown (03/04/2023) Received from [facility] Housing Stability Vital Sign Unable to Pay for Housing in the Last Year: No Number of Places Lived in the Last Year: Not on file Unstable Housing in the Last Year: No Family History: Family History[3] Medications Prior to Admission: Current Medications[4] Medications Reconciliation: Allergies: Allergies[5] REVIEW OF SYSTEMS: Review of system is limited obtained from the family Vitals: BP (!) 168/101 (BP Location: Right arm, Patient Position: Lying) Pulse 97 Temp 36.3 ?C (97.4 ?F) (Temporal) Resp 20 SpO2 94% BMI Classification: Obese (BMI 30.0-39.9) Pulse Ox: SpO2 Av.5 % Min: 94 % Max: 95 % Supplemental O2: O2 Flow Rate (L/min): 2 L/min PHYSICAL EXAM: Physical Exam General appearance: No apparent distress, HEENT: Eyes: No scleral icterus No pallor Oral: Tongue is semi-moist Cardiovascular: S1S2 heard, mildly tachycardic Respiratory: Decrease breath sound both bases Abdomen: Soft, non-distended with normal bowel sounds. Musculoskeletal: No obvious deformities seen Skin: No visible rashes or lesions. Neurology-confused, moving all extremities Extremity- no peripheral edema both lower extremities Left upper extremity AV fistula DATA: CBC: Recent Labs 11/25/24 0702 WBC 6.3 RBC 3.67* HGB 11.3* HCT 35.2* MCV 95.9 RDW 13.2 PLT 114* BMP: Recent Labs 11/25/24 0702 NA 133* K 4.6 CL 101 CO2 27 BUN 13 CREATININE 3.06* GLUCOSE 103 CALCIUM 9.2 ANIONGAP 5 LIVER PROFILE: Recent Labs 11/25/24 0702 AST 22 ALT 13 BILITOT 0.6 ALKPHOS 81 PROT 6.8 PT/INR: No results for input(s): "PROTIME", "INR" in the last 72 hours. CARDIAC ENZYMES: No results for input(s): "TROPONINI" in the last 72 hours. Procalcitonin: No results found for: "PROCAL" Urine Culture: No results found for this or any previous visit. COVID-19 PCR: No results for input(s): "COVID19" in the last 72 hours. I reviewed: [x] laboratory results [x] radiographic results At the time of today's encou (more content not included)... [facility] 11-25-2024 History and physical note Attending History and Physical Admit Date: 11/25/2024 PCP: Matilde Noguera MD CHIEF COMPLAINT: Transferred from outside hospital for altered mental status Reason for Admission: Altered mental status History Obtained From: Medical records, patient's family HISTORY OF PRESENT ILLNESS: Franklin is a 79 y.o. male with past medical history below who was transferred from outside hospital for altered mentation. Patient not able to provide any history. Family at bedside. Reported that a few hours after dialysis patient became confused. Not coherent. Family reports having same episodes previously as well after dialysis. Which seems to have improved much earlier rather than this time. No fever. No recent travel no sick contacts family has not noticed any seizures. Patient evaluated at outside hospital and transferred to [facility] for further evaluation management Upon my evaluation, patient not opening eyes, saying he wants to pee. Labs noted today creatinine 3.0, sodium 133, troponin negative, ammonia 20, WBC 6.3, platelets 104 CT head IMPRESSION: 1. No acute intracranial abnormality. 2. Diffuse cortical volume loss and chronic small vessel ischemic changes. Neurology has been consulted. Patient has been evaluated by neurology team. Past Medical History: Medical History[1] Past Surgical History: Surgical History[2] Social History: Social History Socioeconomic History Marital status: Spouse name: Not on file Number of children: Not on file Years of education: Not on file Highest education level: Not on file Occupational History Not on file Tobacco Use Smoking status: Former Current packs/day: 0.00 Average packs/day: 1 pack/day for 19.0 years (19.0 ttl pk-yrs) Types: Cigarettes Start date: 07/08/1962 Quit date: 07/26/1981 Years since quittin.3 Smokeless tobacco: Never Vaping Use Vaping status: Never Used Substance and Sexual Activity Alcohol use: Never Drug use: Never Sexual activity: Not on file Comment: Other Topics Concern Not on file Social History Narrative Not on file Social Drivers of Health Financial Resource Strain: Low Risk (03/04/2023) Received from [facility] Overall Financial Resource Strain (CARDIA) Difficulty of Paying Living Expenses: Not hard at all Food Insecurity: No Food Insecurity (03/04/2023) Received from [facility] Hunger Vital Sign Worried About Running Out of Food in the Last Year: Never true Ran Out of Food in the Last Year: Never true Transportation Needs: No Transportation Needs (03/04/2023) Received from [facility] PRAPARE - Transportation Lack of Transportation (Medical): No Lack of Transportation (Non-Medical): No Physical Activity: Not on file Stress: Not on file Social Connections: Not on file Intimate Partner Violence: Not on file Housing Stability: Unknown (03/04/2023) Received from [facility] Housing Stability Vital Sign Unable to Pay for Housing in the Last Year: No Number of Places Lived in the Last Year: Not on file Unstable Housing in the Last Year: No Family History: Family History[3] Medications Prior to Admission: Current Medications[4] Medications Reconciliation: Allergies: Allergies[5] REVIEW OF SYSTEMS: Review of system is limited obtained from the family Vitals: BP (!) 168/101 (BP Location: Right arm, Patient Position: Lying) Pulse 97 Temp 36.3 C (97.4 F) (Temporal) Resp 20 SpO2 94% BMI Classification: Obese (BMI 30.0-39.9) Pulse Ox: SpO2 Av.5 % Min: 94 % Max: 95 % Supplemental O2: O2 Flow Rate (L/min): 2 L/min PHYSICAL EXAM: Physical Exam General appearance: No apparent distress, HEENT: Eyes: No scleral icterus No pallor Oral: Tongue is semi-moist Cardiovascular: S1S2 heard, mildly tachycardic Respiratory: Decrease breath sound both bases Abdomen: Soft, non-distended with normal bowel sounds. Musculoskeletal: No obvious deformities seen Skin: No visible rashes or lesions. Neurology-confused, moving all extremities Extremity- no peripheral edema both lower extremities Left upper extremity AV fistula DATA: CBC: Recent Labs 11/25/24 0702 WBC 6.3 RBC 3.67* HGB 11.3* HCT 35.2* MCV 95.9 RDW 13.2 PLT 114* BMP: Recent Labs 11/25/24 0702 NA 133* K 4.6 CL 101 CO2 27 BUN 13 CREATININE 3.06* GLUCOSE 103 CALCIUM 9.2 ANIONGAP 5 LIVER PROFILE: Recent Labs 11/25/24 0702 AST 22 ALT 13 BILITOT 0.6 ALKPHOS 81 PROT 6.8 PT/INR: No results for input(s): "PROTIME", "INR" in the last 72 hours. CARDIAC ENZYMES: No results for input(s): "TROPONINI" in the last 72 hours. Procalcitonin: No results found for: "PROCAL" Urine Culture: No results found for this or any previous visit. COVID-19 PCR: No results for input(s): "COVID19" in the last 72 hours. I reviewed: [x] laboratory results [x] radiographic results At the time of today's encounter. Pt was advised of the results. Data: (LOW: 2x CAT1 or independent historian MOD: 3x CAT1 or 1x CAT3 EXTENSIVE: 3x CAT1 and 1x CAT3) Assessment Discussed management with the ED provider and agree with hospitalization. Acute, acute on chronic, unstable/uncontrolled chronic problems/diagnoses: Acute encephalopathy etiology unclear End-stage renal disease on hemodialysis Thrombocytopenia Stable chronic problems affecting care, new non-acute diagnoses: Medical History[6] Plan As a result of the above findings & factors, the following mgmt was pursued: - Patient will remain n.p.o. -Gentle IV fluids -Discussed with neurology Dr. Hebert, recommending to avoid IV narcotics, was given IV acetaminophen for questionable pain. -MRI brain pending, EEG pending -Consult nephrology for hemodialysis Consult geriatrics - am labs, replace lytes prn - PT/OT/CM/SW - delirium precautions: - DVT prophylaxis: Heparin subcu Discussed with patient family at bedside. Prognosis guarded Complexity: Risk: Advance Directive: Full Code Anticipated Discharge - Pending clinical course Taylor Weinberg MD Division of Hospitalist Medicine [facility] [1] Past Medical History: Diagnosis Date Allergic rhinitis BPH (benign prostatic hyperplasia) BPH (benign prostatic hyperplasia) CHF (congestive heart failure) (HCC) Chronic back pain Chronic kidney disease Chronic systolic heart failure (HCC) 06/05/2020 Compression fracture spring 2014 T12 Diabetes mellitus without complication (CMS/HCC) (HCC) 07/24/2016 no diabetes GERD (gastroesophageal reflux disease) [place] (hard of hearing) 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 Hypertension Indwelling Osorio catheter present Obesity ROYAL (obstructive sleep apnea) Osteoarthritis Restless legs syndrome Status post right hip replacement 03/19/2016 Urge incontinence 07/24/2016 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HCC) [2] Past Surgical History: Procedure Laterality Date CATARACT EXTRACTION Bilateral COLONOSCOPY COLONOSCOPY 01/02/2016 Repeat in 3 years, colon polyps, diverticulosis and internal hemorrhoid COLONOSCOPY 08/24/2017 by Joana Moreno, repeat in 5 years, diverticulosis, internal hemorrhoid EYE SURGERY HIP ARTHROPLASTY Right 02/05/2016 right hip HX AV FISTULA CREATION Left 02/20/2021 JOINT REPLACEMENT KNEE ARTHROSCOPY Left 1988 ORTHOPEDIC SURGERY Left 1989 knee- left knee mensicus arthroscopic surgery PROSTATE BIOPSY 01/11/2014 trus bx- negative RENAL BIOPSY 12/2013 TRANSURETHRAL RESECTION OF PROSTATE 04/06/2020 Button TURP. [place] UPPER GASTROINTESTINAL ENDOSCOPY 01/02/2016 gasttitis, duodentits, GERD with esophagitis UPPER GASTROINTESTINAL ENDOSCOPY 08/22/[address] Bernard, no BE , gastritis, duodenitis and esophagus WISDOM TOOTH EXTRACTION [3] Family History Problem Relation Name Age of Onset Bleeding Prob Other Diabetes Maternal Grandmother Colon cancer Sister 70.00 Colon cancer Brother Norris 70.00 Prostate cancer Father Lung cancer Father Heart failure Mother Heart disease Mother [4] Current Facility-Administered Medications: acetaminophen (Ofirmev) 650 mg 65 mL IVPB, 650 mg, IntraVENous, Once, Taylor Weinberg MD acetaminophen (Tylenol) tablet 650 mg, 650 mg, Oral, q6h PRN OR acetaminophen (Tylenol) suppository 650 mg, 650 mg, Rectal, q6h PRN, Daniel Marshall MD atorvastatin (Lipitor) tablet 40 mg, 40 mg, Oral, Nightly, Daniel Marshall MD azaTHIOprine (Imuran) tablet 50 mg, 50 mg, Oral, Lunch, Daniel Marshall MD bisacodyl (Dulcolax) suppository 10 mg, 10 mg, Rectal, Daily PRN, Daniel Marshall MD clopidogrel (Plavix) tablet 75 mg, 75 mg, Oral, Daily, Daniel Marshall MD gabapentin (Neurontin) capsule 200 mg, 200 mg, Oral, Nightly, Daniel Marshall MD heparin injection 5,000 Units, 5,000 Units, SubCUTAneous, 2 times per day, Daniel Marshall MD labetalol (Normodyne,Trandate) injection 10 mg, 10 mg, IntraVENous, q10 min PRN, Daniel Marshall MD metoprolol tartrate (Lopressor) tablet 25 mg, 25 mg, Oral, BID, Daniel Marshall MD ondansetron ODT (Zofran-ODT) disintegrating tablet 4 mg, 4 mg, Oral, q8h PRN OR ondansetron (Zofran) injection 4 mg, 4 mg, IntraVENous, q6h PRN, Daniel Marshall MD polyethylene glycol (PEG) 3350 (Miralax) packet 17 g, 17 g, Oral, Daily PRN, Daniel Marshall MD pregabalin (Lyrica) capsule 25 mg, 25 mg, Oral, BID, Daniel Marshall MD QUEtiapine (SEROquel) tablet 12.5 mg, 12.5 mg, Oral, Once, Taylor Weinberg MD sodium chloride 0.9 % infusion, 5-250 mL/hr, IntraVENous, PRN, Daniel Marshall MD sodium chloride 0.9 % infusion, 50 mL/hr, IntraVENous, Continuous, Daniel Marshall MD, Last Rate: 50 mL/hr at 11/25/24 0702, 50 mL/hr at 11/25/24 0702 sodium chloride 0.9% (NS) flush 5-40 mL, 5-40 mL, IntraVENous, q12h, Daniel Marshall MD sodium chloride 0.9% (NS) flush 5-40 mL, 5-40 mL, IntraVENous, PRN, Daniel Marshall MD tamsulosin (Flomax) 24 hr capsule 0.4 mg, 0.4 mg, Oral, Daily, Daniel Marshall MD [5] Allergies Allergen Reactions Aspirin Other Cannot have due to kidney disease Other reaction(s): cannot take d/t Zach's Vasculitis Kidney issues Other Other reaction(s): Other: See Comments Sneezing, itchy and watery eyes [6] Past Medical History: Diagnosis Date Allergic rhinitis BPH (benign prostatic hyperplasia) BPH (benign prostatic hyperplasia) CHF (congestive heart failure) (HCC) Chronic back pain Chronic kidney disease Chronic systolic heart failure (HCC) 06/05/2020 Compression fracture spring 2014 T12 Diabetes mellitus without complication (CMS/HCC) (HCC) 07/24/2016 no diabetes GERD (gastroesophageal reflux disease) [place] (hard of hearing) 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 Hypertension Indwelling Osorio catheter present Obesity ROYAL (obstructive sleep apnea) Osteoarthritis Restless legs syndrome Status post right hip replacement 03/19/2016 Urge incontinence 07/24/2016 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HCC) documented in this encounter [facility] 11-25-2024 Nurse Note [address] Weinberg after pt seen thrashing about in bed seeming restless. Family reports pt does have restless leg syndrome, and also requested that he have something to aid in his level of comfort. 0843 Dr. Weinberg stated he would see the patient, and this RN responded "Ok, he is quite uncomfortable so I hope that is soon". 0906 Dr. Weinberg put in for seroquel PO. Patient has been NPO since failing swallow test early this morning. 0907 This RN messaged to educate Dr. Weinberg that pt was NPO, and clarified further that he had failed a swallow test. 0912 Patient continues to thrash in bed, continued restlessness as physicians continue to put orders for imaging in for patient, added Dr. Hebert from neurology to chat so he was aware of situaton and difficulty that would be had getting appropriate imaging considering patient's inability to stay still. 1023 Dr Hernandez states patient should be able to lie flat for a CT. Neuro team was then on the floor and approached this RN asking why he could not have imaging done. This RN again reported patients unresolved psychomotor agitation and restlessness, for which Dr. Weinberg had put in an order for 0.[address] Hernandez had been added to the chat. At this time neuro expressed concern regarding administration of medication, which they unfortunately were not able to advise against administering despite being aware of patient's needs for medication due to discomfort as evidenced by restlessness that has persisted since 0837 AM. Cosigned by Nuha Hebert MD at 11/25/2024 12:43 PM EDT Associated attestation - Nuha Hebert MD - 11/25/2024 12:43 PM EDT Made aware of the ativan ordered by primary. Told the nurse not to give it and I was informed that it was already given [facility] 11-25-2024 Progress note Formatting of t his note is different from the original. INITIAL CONSULT NOTE. STROKE SERVICE Patient Name: Franklin Burton Patient : 1945 Acct: [id number] Date of Admission: 11/25/2024 Room[facility]: [facility] A PCP: Matilde Noguera MD History of Present Ilness: 79 y.o. male with PMH of granulomatosis with polyangiitis, ESRD on hemodialysis, HTN, neuropathy, and pre-diabetes who presents with the chief Complaint of: altered mental status and confusion following a dialysis session. According to the patient's son, [id number], and , Mr. Burton returned from a routine dialysis session on 11/24 and laid down to rest. Soon after, he began yelling his 's name and was observed having his knees give out to collapse. He did not hit his head but was nauseous, severely confused, and his speech was not clear. At baseline, he speaks fluently with only occasional incomprehensibility of content. He is able to drive himself to and from dialysis appointments but uses a wheelchair and walker to ambulate. The patient was taken to [facility], where the stroke neurologist determined that he was not having any LVO based on CTA and did not need TNK. The team at [facility] felt this may have been related to fluid shift in relation to dialysis and transferred patient to [facility] for further imaging due to non-availability at [facility]. Of note, Mr. Burton has presented with similar symptoms after dialysis at least two other previous times, and the family thinks his symptoms are getting worse each time. His family denies any known fever, chills, seizures, vision/hearing loss, gait abnormalities, or recent illness. They mention some back pain and loss of appetite that have presented over the past couple weeks. Past Medical History: Medical History[1] Past Surgical History: Surgical History[2] Home Medications: Prior to Admission medications Medication Sig Start Date End Date Taking? Authorizing Provider acetaminophen (Tylenol Extra Strength) 500 MG tablet every 6 hours. Historical Provider, azaTHIOprine (Imuran) 50 MG tablet Daily with lunch. 12/04/20 Historical Provider, finasteride (Proscar) 5 MG tablet Take 5 mg by mouth daily. Do not crush, chew, or split. Historical Provider, gabapentin (Neurontin) 100 MG capsule Take 2 capsules by mouth Nightly. 03/04/22 Historical Provider, metoprolol tartrate (Lopressor) 25 MG tablet every 12 hours. Historical Provider, mirtazapine (Remeron) 15 MG tablet Take 15 mg by mouth Nightly. Historical Provider, omeprazole (PriLOSEC) [address] capsule Take 1 capsule (40 mg) by mouth daily. 10/15/22 Rahel Mendez MD oxyCODONE-acetaminophen (Percocet) 5-325 MG tablet Take 1 tablet by mouth every 8 hours as needed for severe pain (7-10) or moderate pain (4-6). Historical Provider, pregabalin (Lyrica) 25 MG capsule Take 25 mg by mouth 2 times daily. Historical Provider, tamsulosin (Flomax) 0.4 MG 24 hr capsule Every 24 hours. Historical Provider, Current Hospital Medications: Current Medications[3] Continuous Infusions: Continuous Meds[4] Allergies: Aspirin and Other Social History: TOBACCO: reports that he quit smoking about 43 years ago. His smoking use included cigarettes. He started smoking about 62 years ago. He has a 19 pack-year smoking history. He has never used smokeless tobacco. ETOH: reports no history of alcohol use. RECREATIONAL DRUG USE: Social History Substance and Sexual Activity Drug Use Never Family History: Family History[5] ROS; :Unable to obtain review of systems due to patient's mental status and lack of cooperation. ROS according to patient's family. Review of Systems Constitutional: Positive for appetite change and fatigue. Negative for chills and fever. HENT: Negative for hearing loss. Eyes: Negative for visual disturbance. Neurological: Negative for tremors, seizures and syncope. Patient presents with altered mental status, confusion, and fatigue. Psychiatric/Behavioral: Positive for agitation (Patient reportedly has restless leg syndrome at baseline. Patient is restless in hospital bed but not aggressive.) and confusion. Physical Examination: Patient Vitals for the past 8 hrs: BP Temp Temp src Pulse Resp SpO2 11/25/24 1023 (!) 168/101 36.3 C (97.4 F) Temporal 97 20 94 % 11/25/24 0606 154/87 36.5 C (97.7 F) Temporal 93 18 95 % No intake/output data recorded. General Physical Examination: General: Orthodromic HEENT:Normocephalic, atraumaticl CV: S1+S2, RRR, no MRG. Pulm:Normal work of breathing Abdomen:Non-distended Back: No tenderness to palpation, no fluctuant skin Skin: Intact without ulcers, breakdowns or discoloration Extremities: normal with no edema or cyanosis Neurological Examination: Higher Functions: Mental Status Exam: Level of Alertness:Somnolent but arrousable Orientation: Waxing and waning orientation to person, place, and time. Memory: Limited by level of consciousness Fund of Knowledge: Limited by level ofconsciousness Language: Soft, slow speech. Level of comprehension and speech dependent on fluctuating mentation. Dysarthria not present Cranial Nerves: -II Visual acuity: normal -II Visual mccabe: normal -III Pupils equal, round, reactive to light -III-IV- Extraocular Movements: intact -Nystagmus not present -Saccades and pursuits normal - V Unable to be assessed -VII Facial strength: intact -VIII Hearing: intact -IX-X- Gag reflex Not assessed -X Palate: Not assessed -XI Shoulder shrug: Not assessed -XII Tongue movement: normal Motor Examination: Tone after evaluation of 4 limbs, the following findings applied: Normal . all limbs -Bulk: normal -Muscle Stretchafter evaluation of all limbs, and axial musculature the following findings applied: Drift: absent -Reflexes: after evaluation of 4 limbs, the following findings applied ; normal all limbs -Plantar responce: Flexor bilaterally Sensory patient unable to assist with exam due toaphasia,level of consciousness, cognition or poor participation Coordination: Arms Normal finger to nose Tremors asterixis Gait abnormal, patient unable to walk due to acute circumstances / bedrest / safety concerns NIHSS: 1 Results Labs: Last 24hrs Recent Results (from the past 24 hours) ECG 12 lead if not done in the ED Collection Time: 11/25/24 6:48 AM Result Value Ref Range Heart Rate 96 bpm QRSD Interval 83 ms QT Interval 347 ms QTC Interval 438 ms P Cosby 68 degrees QRS Cosby 35 degrees T Wave Cosby 38 degrees WA Interval 185 ms Hemoglobin A1c Collection Time: 11/25/24 7:02 AM Result Value Ref Range HEMOGLOBIN A1C 5.8 (H) <5.7 %HbA1C ESTIMATED AVERAGE GLUCOSE 120 mg/dL Lipid panel - fasting Collection Time: 11/25/24 7:02 AM Result Value Ref Range TRIGLYCERIDE 104 <150 mg/dL CHOLESTEROL 146 <200 mg/dL HDL CHOLESTEROL 39 (L) >=60 mg/dL CHOL/HDL 4 VERY LOW DENSITY LIPOPROTEIN, CALCULATED 21 <=30 mg/dL NON-HDL CHOLESTEROL, CALCULATED 107 <130 LOW DENSITY LIPOPROTEIN 86 0 - <100 mg/dL CBC Collection Time: 11/25/24 7:02 AM Result Value Ref Range Auto WBC 6.3 3.6 - 10.7 10*3/uL RBC 3.67 (L) 4.40 - 5.90 10*6/uL Hemoglobin 11.3 (L) 13.0 - 18.0 g/dL Hematocrit 35.2 (L) 40.0 - 52.0 % MCV 95.9 77.0 - 99.0 fL MCH 30.8 26.0 - 34.0 pg MCHC 32.1 30.5 - 36.0 % RDW 13.2 11.5 - 15.0 % Platelets 114 (L) 140 - 440 10*3/uL MPV 9.7 9.0 - 12.7 fL Serial Troponin, High Sensitivity Collection Time: 11/25/24 7:02 AM Result Value Ref Range Troponin HS Serial Baseline 5 <=35 ng/L Comprehensive metabolic panel Collection Time: 11/25/24 7:02 AM Result Value Ref Range SODIUM 133 (L) 136 - 145 mmol/L POTASSIUM 4.6 3.5 - 5.1 mmol/L CHLORIDE 101 98 - 107 mmol/L CARBON DIOXIDE 27 23 - 31 mmol/L ANION GAP 5 3 - 13 mmol/L UREA NITROGEN 13 9 - 23 mg/dL CREATININE 3.06 (H) 0.72 - 1.25 mg/dL GLUCOSE 103 82 - 115 mg/dL CALCIUM 9.2 8.8 - 10.0 mg/dL AST (SGOT) 22 <34 U/L ALT 13 <40 U/L ALKALINE PHOSPHATASE 81 40 - 150 U/L ALBUMIN 3.7 3.4 - 4.8 g/dL BILIRUBIN, TOTAL 0.6 <1.2 mg/dL TOTAL PROTEIN 6.8 6.4 - 8.3 g/dL eGFR 20.1 (L) >60.0 mL/min/1.73m*2 Since admission: No results for input(s): "CKTOTAL", "TROPONINI" in the last 72 hours. Recent Labs 11/25/24 0702 ALKPHOS 81 ALT 13 AST 22 BILITOT 0.6 @[facility]) ABGs:)No results for input(s): "PH", "PO2", "PCO2", "HCO3", "O2SAT" in the last 72 hours. No lab exists for component: "BE" Cultures: Blood culture #1: No lab exists for component: "BC" Blood culture #2: No lab exists for component: "BLOODCULT2" Antiepileptic levels: No results for input(s): "PHENYTOIN", "PHENOBARB", "VALPROATE" in the last 72 hours. No lab exists for component: "CARBTOT", "LAMOTRIG", "KEPPRA" Coagulation: No results for input(s): "INR" in the last 72 hours. CSF: No results for input(s): "CULTURE", "PROTEIN" in the last 72 hours. No lab exists for component: "CHARCSF", "CELL COUNT", "GRAM STAIN" Stroke Specific: Lipids: Recent Labs 11/25/24 0702 CHOL 146 TRIG 104 HDL 39* HgA1c: No lab exists for component: "LABA1C" Radiology Personal review: 11/25/24 CT Head w/o IV Contrast IMPRESSION: No acute intracranial abnormality. Diffuse cortical volume loss and chronic small vessel ischemic changes. CTA performed at [facility], results to be uploaded to patient's chart by [facility]. ASSESSMENT / PLAN / SUGGESTIONS : Mr. Franklin Burton is a 79-year-old male presenting for 1-day history of acute altered mental status and confusion following a routine hemodialysis session. Patient has had similar episodes at least twice before, each time in temporal relation to a hemodialysis session. He first presented to [facility], where initial CTA imaging ruled out LVO or need for TNK. He was then sent to [facility] to obtain further imaging and workup due to non-availability of equipment at original hospital. Patient has fluctuating levels of alertness and mentation during stay. He does not have any fever, chills, or leukocytosis, but his family does endorse back pain manifesting over the course of the past two weeks. He has no recent history of trauma, substance use, or observed seizures. Neurologically, he does not have focal symptoms that are immediately indicative of worrisome vascular etiologies such as TIA or stroke, but MRI imaging has been ordered to rule it out. He has no myelopathic signs and does not appear to have any signs of potential abscess. At this time, differential diagnoses for potential etiology of AMS are broad and many avenues must be considered in workup. Possible leading differential diagnoses include dialysis disequilibrium syndrome (given temporal relation to repetitive symptoms, but this may usually present more chronically), metabolic/SIADH (given Na of 133, though baseline may be consistent), PRES due to Imuran use, infectious (unlikely given lack of symptoms and SIRS criteria), and uremic encephalopathy (given observed asterixis in setting of ESRD on dialysis). #Altered Mental Status #Confusion #ESRD on dialysis #Sx onset after dialysis #Imuran use - Awaiting results of MRI, EEG, and TTE - CT Head performed 11/25/24, no acute intracranial abnormality observed - UA and urine cultures ordered along with blood cultures - Vitamin panel ordered - Ammonia ordered - Fluid restriction - Avoid medications that can worsen altered mental status (benzodiazepines, antihistamines, sedatives) - Precautionary delirium protocol (lights on during day, protect sleep at night, Seroquel if needed at night for sleep, regular monitoring, keeping patient alert throughout daylight) Patient seen and discussed with Dr. Hebert [1] Past Medical History: Diagnosis Date Allergic rhinitis BPH (benign prostatic hyperplasia) BPH (benign prostatic hyperplasia) CHF (congestive heart failure) (HCC) Chronic back pain Chronic kidney disease Chronic systolic heart failure (HCC) 06/05/2020 Compression fracture spring 2014 T12 Diabetes mellitus without complication (CMS/HCC) (HCC) 07/24/2016 no diabetes GERD (gastroesophageal reflux disease) [place] (hard of hearing) 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 Hypertension Indwelling Osorio catheter present Obesity ROYAL (obstructive sleep apnea) Osteoarthritis Restless legs syndrome Status post right hip replacement 03/19/2016 Urge incontinence 07/24/2016 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HCC) [2] Past Surgical History: Procedure Laterality Date CATARACT EXTRACTION Bilateral COLONOSCOPY COLONOSCOPY 01/02/2016 Repeat in 3 years, colon polyps, diverticulosis and internal hemorrhoid COLONOSCOPY 08/24/2017 by Joana Moreno, repeat in 5 years, diverticulosis, internal hemorrhoid EYE SURGERY HIP ARTHROPLASTY Right 02/05/2016 right hip HX AV FISTULA CREATION Left 02/20/2021 JOINT REPLACEMENT KNEE ARTHROSCOPY Left 1988 ORTHOPEDIC SURGERY Left 1989 knee- left knee mensicus arthroscopic surgery PROSTATE BIOPSY 01/11/2014 trus bx- negative RENAL BIOPSY 12/2013 TRANSURETHRAL RESECTION OF PROSTATE 04/06/2020 Button TURP. [place] UPPER GASTROINTESTINAL ENDOSCOPY 01/02/2016 gasttitis, duodentits, GERD with esophagitis UPPER GASTROINTESTINAL ENDOSCOPY 08/22/[address] Bernard, no BE , gastritis, duodenitis and esophagus WISDOM TOOTH EXTRACTION [3] Current Facility-Administered Medications: acetaminophen (Tylenol) tablet 650 mg, 650 mg, Oral, q6h PRN OR acetaminophen (Tylenol) suppository 650 mg, 650 mg, Rectal, q6h PRN, Daniel Marshall MD atorvastatin (Lipitor) tablet 40 mg, 40 mg, Oral, Nightly, Daniel Marshall MD azaTHIOprine (Imuran) tablet 50 mg, 50 mg, Oral, Lunch, Daniel Marshall MD bisacodyl (Dulcolax) suppository 10 mg, 10 mg, Rectal, Daily PRN, Daniel Marshall MD clopidogrel (Plavix) tablet 75 mg, 75 mg, Oral, Daily, Daniel Marshall MD gabapentin (Neurontin) capsule 200 mg, 200 mg, Oral, Nightly, Daniel Marshall MD heparin injection 5,000 Units, 5,000 Units, SubCUTAneous, 2 times per day, Daniel Marshall MD labetalol (Normodyne,Trandate) injection 10 mg, 10 mg, IntraVENous, q10 min PRN, Daniel Marshall MD metoprolol tartrate (Lopressor) tablet 25 mg, 25 mg, Oral, BID, Daniel Marshall MD ondansetron ODT (Zofran-ODT) disintegrating tablet 4 mg, 4 mg, Oral, q8h PRN OR ondansetron (Zofran) injection 4 mg, 4 mg, IntraVENous, q6h PRN, Daniel Marshall MD polyethylene glycol (PEG) 3350 (Miralax) packet 17 g, 17 g, Oral, Daily PRN, Daniel Marshall MD pregabalin (Lyrica) capsule 25 mg, 25 mg, Oral, BID, Daniel Marshall MD QUEtiapine (SEROquel) tablet 12.5 mg, 12.5 mg, Oral, Once, Taylor Weinberg MD sodium chloride 0.9 % infusion, 5-250 mL/hr, IntraVENous, PRN, Daniel Marshall MD sodium chloride 0.9 % infusion, 50 mL/hr, IntraVENous, Continuous, Daniel Marshall MD, Last Rate: 50 mL/hr at 11/25/24701, 50 mL/hr at 11/25/24701 sodium chloride 0.9% (NS) flush 5-40 mL, 5-40 mL, IntraVENous, q12h, Daniel Marshall MD sodium chloride 0.9% (NS) flush 5-40 mL, 5-40 mL, IntraVENous, PRN, Daniel Marshall MD tamsulosin (Flomax) 24 hr capsule 0.4 mg, 0.4 mg, Oral, Daily, Daniel Marshall MD [4] sodium chloride, 50 mL/hr, Last Rate: 50 mL/hr (11/25/24701) [5] Family History Problem Relation Name Age of Onset Bleeding Prob Other Diabetes Maternal Grandmother Colon cancer Sister 70.00 Colon cancer Brother Norris 70.00 Prostate cancer Father Lung cancer Father Heart failure Mother Heart disease Mother Cosigned by Nuha Hebert MD at 11/25/2024 1:50 PM EDT Associated attestation - Nuha Hebert MD - 11/25/2024 1:50 PM EDT Images from the original note were not included. I have personally performed a face to face diagnostic evaluation on this patient . I have reviewed and agree with the care plan as documented above by my KUSH/resident with exceptions as listed below. 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 The history was obtained by talking to the patient's son and who are at bedside. This is the fourth episode of this happening. Per the son, every time he has this episode, it is worse than the last 1. Between these episodes, he is usually at his baseline. There is also some concern of very slow onset of some memory issues for some time now. Per the son, this always happens after his dialysis and he usually gets better within 48 hours. Yesterday, the patient was in his usual state of health, no fevers, recent sicknesses and drove himself to the dialysis. Followed by this, he came home and laid down to rest. Soon after, started yelling his 's name and he was noticed that he was significantly confused and his speech was not clear. He was taken to [facility] where he had a CT scan of the head and CT angiogram of the head and neck. He was offered tenecteplase but the family refused given similar episodes in the past. He was then transferred to [facility]. At [facility] on arrival, blood pressure 154/87, blood work showed sodium 133, creatinine 3.06, LDL 86, A1c 5.8. On exam, the patient is stuporous, does open commands and answer me questions, able to tell me his name, states that he is in the hospital, unable to tell me the current year. He is able to follow simple commands. On cranial examination, pupils are equal reactive, extraocular muscle movements are intact, no facial droop, no facial numbness, tongue is midline and palate elevation is symmetric. He has 5/5 strength in bilateral upper extremities, on exam he does have some asterixis but no [id number] dystaxia or dysmetria. No numbness on light touch in his arms or leg. Able to lift both legs antigravity with 4/5 strength bilaterally. Reflexes are 1+ in the uppers, unable to elicit in the lowers. Denies any spine tenderness. Negative Kernig's and Brezinski. 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 There is no clear seizure-like activity but postdialysis disequilibrium syndrome can also cause seizures and we will get a urgent EEG. I have repeated a stat CT head which did not show any significant abnormality. With the possibility it is PRES given he is on Imuran versus toxic metabolic etiologies versus infectious etiology which is less likely but if his symptoms do not start to improve, he might need a spinal tap. Addendum: discussed with primary: will need med rec, I do not recommend both Gabapentin and Lyrica I personally spent [] 25 [x]79 minutes in time for this patient. During that time I performed a face to face diagnostic evaluation of this patient reviewing labs, imaging studies and the electronic medical record; as well as counseling/coordinating care and provided discussion regarding diagnostic impressions and the plan of care with the consulting team Nuha Hebert MD [facility] 11-25-2024 Note Physical Therapy Halie luation and Treatment Order Received. Pt is out of the room at this time. Will continue to follow. [facility] 11-25-2024 Plan of care note Problem: Knowledge Deficit Goal: Patient/family/caregiver demonstrates understanding of disease process, treatment plan, medications, and discharge instructions Outcome: Progressing Problem: Neurological Deficit Goal: Neurological status is stable or improving Outcome: Progressing Problem: Activity Intolerance/Impaired Mobility Goal: Mobility/activity is maintained at optimum level for patient Outcome: Progressing Problem: Potential for Aspiration Goal: Non-ventilated patient's risk of aspiration is minimized Outcome: Progressing [facility] 11-25-2024 Note I attempted to compl ete routine EEG, pt thrashing around in bed, family currently in room and does not feel patient will tolerate testing at this time. Please re-order when patient is more cooperative [facility] 11-25-2024 Procedure note Associated Ord er(s): EEG I attempted to complete routine EEG, pt thrashing around in bed, family currently in room and does not feel patient will tolerate testing at this time. Please re-order when patient is more cooperative [facility] 11-25-2024 Hospital Discharge instructions Aziza Christianson MD - 11/25/2024 7:34 AM EDT Refer to the Understanding Stroke Booklet given to you, written material provided to patient/family, addressing all signs & symptoms of a stroke, which are: sudden numbness or weakness of the face, arm or leg, especially on one side of the body sudden confusion sudden difficulty speaking or understanding sudden trouble seeing in one or both eyes sudden trouble walking,dizziness, loss of balance or coordination sudden severe headache with no known cause syncope or temporary loss of consciousness seizure Explained the need to call EMS ([phone]) immediately if signs & symptoms occur. Discussed medications that the patient is taking, will review medications again prior to discharge, risk factors, and the need for follow-up with a physician/[employer]/PA after discharge. Katheryn Lakhani RN on 11/25/24 at 7:33 AM Discussed the patient s personal risk factors for Stroke /TIA with patient/family, and ways to reduce the risk for a recurrent stroke. Patient's personal risk factors which were identified are: [x] High blood pressure [] High cholesterol [] Atrial fibrillation [] Diabetes [] Smoking/e-cigarettes/vaping [] Smokeless tobacco [x] Overweight [x] Lack of Exercise [] Sleep apnea [] Prior heart disease or heart attack [] Excessive alcohol use [] Marijuana/cannabis use [] Illicit drug use [] Personal history of previous TIA or stroke [x] Family history of stroke or heart disease [] Carotid stenosis [] Heart failure [] Patent Foramen Ovale [] Migraine [] Hormone replacement therapy [] Current (up to six weeks post ) [] Depression [] Sickle Cell [] Renal insufficiency - chronic [] None Refer to Understanding Stroke Booklet. Advised patient that risk for stroke/TIA can be reduced by modifying/controlling risk factors. Patient advised to take medications as prescribed, which will be detailed in the discharge instructions, and to not stop taking them without consulting a physician. In addition, pt. advised to maintain a healthy diet, exercise regularly and to not smoke. Katheryn Lakhani RN on 11/25/24 at 7:33 AM [facility] [address] [facility] [address], [place] [address] [employer] Glen De La O RN - 11/26/2024 11:40 AM EDT documented in this encounter [facility] 09-07-2024 Evaluation note Diagnosis Onset Date Resolution Chronic neuropathic pain acute September 07, 2024 8:24am RLS (restless legs syndrome) acute September 07, 2024 8:24am Chronic back pain chronic August 182024 8:24am Essential hypertension chronic Ap 2024 8:24am Prediabetes chronic September 07 8:24am Zach's granulomatosis chronic September 07, 2024 8:24am Elevated PSA noneactive September 07, 2024 8:24am Heartburn noneactive September 07 8:24am Chronic insomnia noneactive September 072024 8:24am [place] [employer] Work Phone: 1(330) 358-372812-17-2024 Evaluation note* Diagnosis Onset Date Resolution Status Admit Date Cough in adult noneactive April 182023 7:19am Chronic neuropathic pain acute June 08, 2024 9:42am RLS (restless legs syndrome) acute June 08, 2024 9:42am Chronic back pain chronic June 08, 2024 9:42am Essential hypertension chronic Ja nuary 2024 9:42am Prediabetes chronic June 08, 2024 9:42am Zach's granulomatosis chronic June 08, 2024 9:42am Elevated PSA noneactive May 9:42am Skin growth noneactive June 08, 2024 9:42am Heartburn noneactive June 08, 2024 9:42am Chronic insomnia noneactive June 08, 2024 9:42am Generalized weakness noneactive Bonilla stephens2024 9:42am [place] Work Phone: 1(877) 841-862203-21-2024 History of Present illness Narrative* Sky Kerr MD - 08/07/2023 10:20 AM EDT Images from the original note were not included. [facility] [address] [place] [id number] Dept: [phone] Dept 08/07/2023 Chief Complaint Patient presents with New Patient Right hip pain, h/o right ANGEL DOS 02/05/2016 Subjective: Franklin is approximately 7.5 years out from a Right total hip arthroplasty. Pain is mild at rest and moderate with weight bearing/walking/climbing stairs. Franklin reports increased right hip pain that started about 3 months ago. He denies recent injury or trauma. He describes the pain as aching, located in the groin, lateral hip, and down the thigh. Assistive device for ambulation: straight cane. Pre-operative symptoms are significantly improved. Franklin denies calf pain. He states that his pain started improving a few days ago. Review of Systems Constitutional: Negative for activity change. HENT: Negative for congestion. Cardiovascular: Negative for leg swelling. Musculoskeletal: Positive for arthralgias, gait problem and joint swelling. Skin: Negative for wound. Neurological: Negative for weakness. Objective: BP 106/65 Pulse 65 Ht 5' 8" (1.727 m) Wt 228 lb (103 kg) BMI 34.67 kg/m Ortho Exam Franklin looks well today and non-toxic. Incision is well-healed. Skin otherwise is warm, dry and intact. Edema is absent. Hip ROM is smooth and non-tender with no signs or symptoms of instability. Flexion/IR is 90/30. Franklin remains neuro intact to the Right leg. Tender to palpation over the greater trochanteric bursa. Gait is antalgic. No evidence of DVT seen on physical exam. Negative Mor's sign. No cords or calf tenderness. No significant calf/ankle edema. Single leg stance shows strong abductors. The patient does not appreciate a leg length discrepancy. XRAYS: Images reviewed with patient today at [facility] Indication: status post Right total hip arthroplasty Exam Ordered: Radiographs taken today include an anteroposterior pelvis, an AP and lateral view of the left proximal femur including the hip joint Details of Examination: Today's exam show a well fixed, well positioned total hip arthroplasty withno evidence of wear, osteolysis, or loosening. Impression: Status post Right total hip arthroplasty, implant in good position with no abnormality Assessment 1. 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, initial encounter ([facility]) ([facility]) 2. H/O total hip arthroplasty, right 3. Trochanteric bursitis of right hip Plan Franklin was having significant pain in his right thigh with weightbearing. He reports over the last week his pain is significantly improved and denies pain today. I am unable to reproduce pain with range of motion of the hip and he is able to bear weight without pain. I reviewed his x-rays look good with no signs of loosening or wear. We discussed if his pain does return I recommend ESR and CRP. Wediscussed that this is normal this could be coming from his back given his history of lumbar arthritis and chronic back pain This treatment will consist of... ~ Activity modification ~ NSAID's (OTC preferred) - The risks and benefits of NSAID medications were discussed. NSAID's canhave potential renal/cardiac/gastric side effects. ~ Tylenol Electronically signed by Sky Kerr M.D. 08/07/2023 at 9:45 AM. Dictated using [employer] Version 2.4 Proof read however unrecognized voice recognition errors may have occurred documented in this [facility]10-23-2023 NoteHNO ID: [id number] Author: Cornel Pittman RN Service: Care Management Author Type: Registered Nurse Type: Care Mgt Progress Note Filed: 03/10/2023 4:46 PM Note Text: CARE MANAGEMENT DISCHARGE NOTE SERVICE DATE: March 10, 2023 SERVICE TIME: 1600 Admission Date: 02/28/2023 LOS: 9 days Discharge Arrangement Discharge Arrangement: Home with Self Care Services Arranged Provider Name: Dr. Rahel Mendez Caregiver Assessment Caregiver is ready, willing and able to meet the patient's needs as recommended by the inter-professional team: No Caregiver needed Transportation Arrangements Transportation Arrangements: Car Handoff Communication: Additional Information: Patient returning home with new outpatient dialysis set up with [facility]. Patient's family to provide transport. No additional needs noted at D/C. Discharge Information Row Name Admission (Current) from 02/28/2023 in [facility] CARD/HF/PD Medical Follow-Up Appointment Specialty Outpatient Dialysis Provider Name Tam[facility] Address [address] [address] Appointment Date 03/12/23 Appointment Time 2:00pm Additional Instructions Your Outpatient Pialysis schedule is Friday, Friday, Friday at 2:00pm. Please arrive 30 minutes early to your first appointment to complete new patient paperwork. Please call the above number with any questions. SIGNATURE: Cornel Pittman RN PATIENT NAME: Franklin Burton DATE: March 10, 2023 TIME: 4:44 PM CONTACT #: [phone] HNO ID: [id number] Author: Coty Sheppard RPh Service: Pharmacy Author Type: Pharmacist Type: Plan of Care Filed: 03/10/2023 4:26 PM Note Text: DISCHARGE MEDICATION REVIEW BY PHARMACY Patient Name: Franklin Burton Account #: Data Unavailable Admission Date: 02/28/2023 Date of Contact: March 10, 2023 Time of Contact: 4:26 PM Medication list was reviewed by a Pharmacist for drug interactions or drug related problems:Yes Below is a summary of pharmacist recommendations discussed with LIP: No Recommendations at this time from Discharge Medication List. Coty Sheppard RPh March 10, 2023 4:26 PM Medication List START taking these medications ANTACID (CALCIUM CARBONATE) 500 mg Chew Generic drug: calcium carbonate Take 2 tablets by mouth three times a day for 2 days. CLEARLAX 17 gram packet Generic drug: polyethylene glycol 3350 Take 1 Packet by mouth once daily for 5 days. Dissolve dose in 4 - 8 ounces of liquid and take as directed. Start taking on: March 11, 2023 levoFLOXacin 500 mg tablet Commonly known as: LEVAQUIN Take 1 tablet by mouth every 48 hours for 9 days. minocycline 100 mg capsule Commonly known as: MINOCIN, DYNACIN Take 1 capsule by mouth two times a day for 9 days. mirtazapine 15 mg tablet Commonly known as: REMERON Take 1 tablet by mouth daily at bedtime. pregabalin 25 mg capsule Commonly known as: LYRICA Take 1 capsule by mouth two times a day for 90 days. senna 8.6 mg Tab Commonly known as: SENOKOT Take 2 tablets by mouth two times a day. CONTINUE taking these medications azaTHIOprine 50 mg tablet Commonly known as: IMURAN calcitriol 0.5 mcg capsule Commonly known as: ROCALTROL gabapentin 100 mg capsule Commonly known as: NEURONTIN metoprolol tartrate (short acting) 25 mg tablet Commonly known as: LOPRESSOR Take 1 tablet by mouth once daily. omeprazole 20 mg capsule Commonly known as: PriLOSEC Take 2 capsules by mouth daily before breakfast. 1/2 hr before meal. oxyCODONE-acetaminophen 5-325 mg tablet Commonly known as: PERCOCET STOP taking these medications finasteride 5 mg tablet Commonly known as: PROSCAR tamsulosin 0.4 mg Commonly known as: FLOMAX Where to Get Your Medications These medications were sent to [facility] [address] [place] [address] Hours: Friday-Friday, 8am-6:30pm ANTACID (CALCIUM CARBONATE) 500 mg Chew CLEARLAX 17 gram packet levoFLOXacin 500 mg tablet metoprolol tartrate (short acting) 25 mg tablet minocycline 100 mg capsule mirtazapine 15 mg tablet pregabalin 25 mg capsule senna 8.6 mg [facility]10-23-2023 NoteHNO ID: [id number] Author: Kelly Dacsota CPhT Service: Pharmacy Author Type: Reel Film Inspector Type: Plan of Care Filed: 03/10/2023 4:10 PM Note Text: PHARMACY BEDSIDE DELIVERY SERVICE Patient Name: Franklin Burton The marked outpatient medications were Filled at: [facility] and delivered to the patient's bedside to patient Medication List START taking these medications ANTACID (CALCIUM CARBONATE) 500 mg Chew Generic drug: calcium carbonate Take 2 tablets by mouth three times a day for 2 days. CLEARLAX 17 gram packet Generic drug: polyethylene glycol 3350 Take 1 Packet by mouth once daily for 5 days. Dissolve dose in 4 - 8 ounces of liquid and take as directed. Start taking on: March 11, 2023 levoFLOXacin 500 mg tablet Commonly known as: LEVAQUIN Take 1 tablet by mouth every 48 hours for 9 days. minocycline 100 mg capsule Commonly known as: MINOCIN, DYNACIN Take 1 capsule by mouth two times a day for 9 days. mirtazapine 15 mg tablet Commonly known as: REMERON Take 1 tablet by mouth daily at bedtime. pregabalin 25 mg capsule Commonly known as: LYRICA Take 1 capsule by mouth two times a day for 90 days. senna 8.6 mg Tab Commonly known as: SENOKOT Take 2 tablets by mouth two times a day. CONTINUE taking these medications azaTHIOprine 50 mg tablet Commonly known as: IMURAN calcitriol 0.5 mcg capsule Commonly known as: ROCALTROL gabapentin 100 mg capsule Commonly known as: NEURONTIN metoprolol tartrate (short acting) 25 mg tablet Commonly known as: LOPRESSOR Take 1 tablet by mouth once daily. omeprazole 20 mg capsule Commonly known as: PriLOSEC Take 2 capsules by mouth daily before breakfast. 1/2 hr before meal. oxyCODONE-acetaminophen 5-325 mg tablet Commonly known as: PERCOCET You might also be taking other medications not listed above. If you have questions about any of your other medications, talk to the person who prescribed them or your Primary Care Provider. STOP taking these medications finasteride 5 mg tablet Commonly known as: PROSCAR tamsulosin 0.4 mg Commonly known as: FLOMAX Kelly Dacosta CPhT PAGER: Kelly Dacosta [phone] 03/10/23 4:10 PM March 10, 2023 4:09 [facility]10-23-2023 NoteHNO ID: [id number] Author: Maurice Kiran MD Service: Nephrology Author Type: Physician Type: Progress Notes Filed: 03/10/2023 3:19 PM Note Text: NEPHROLOGY DIALYSIS NOTE Visit date: 03/10/23, 3:16 PM Patient: Franklin Burton Room number: [id number]* Date of Admit: 02/28/2023 LOS: 9 days Referring physician: James Yadav,* Outpatient Armored Car Guard: Daniel Pacheco MD ASSESSMENT: ESRD Anemia of ESRD Secondary Hyperparathyroidism of ESRD Hyponatremia Hypoalbuminemia PD peritonitis - S. maltophilia PLAN: Will plan dialysis on MWF schedule via his left upper extremity AVF Access: left UE AVF, no issues Daily weights Fluid restriction: 1200 mL daily Oral levofloxacin and minocycline as outpatient per ID recommendations. Ok for discharge from renal standpoint once outpatient dialysis unit is confirmed SUBJECTIVE: Patient with chronic, stable medical conditions as documented in the initial consultation. Last Dialysis Performed: 03/10 Approximate UF: 1 liters Interval history reviewed: tolerated dialysis Patient reports dialysis treatments have been going better Had some RLS symptoms at end of treatment today Notes some acid reflux OBJECTIVE: CURRENT MEDICATIONS: calcium carbonate 1,000 mg chewable tab(s) (TUMS), 1,000 mg, ORAL, TID, James Yadav MD simethicone, chewable 160 mg tab(s) (MYLICON), 160 mg, ORAL, TID after MEALS, James Yadav MD minocycline 100 mg cap(s) (MINOCIN, DYNACIN), 100 mg, ORAL, BID, James Yadav MD, 100 mg at 03/10/23 0841 prochlorperazine 10 mg injection (COMPAZINE), 10 mg, INTRAVENOUS, q 6 H PRN, Hagen, Firas, DO metoclopramide HCl 5 mg (REGLAN), 5 mg, ORAL, q 8 H PRN, Hagen, Firas, DO, 5 mg at 03/07/23 1323 promethazine 25 mg tab(s) (PHENERGAN), 25 mg, ORAL, q 6 H PRN, Hagen, Firas, DO mirtazapine 15 mg (REMERON), 15 mg, ORAL, AT BEDTIME, Hagen, Firas, DO, 15 mg at 03/09/232040 pantoprazole DR 40 mg tab(s) (PROTONIX), 40 mg, ORAL, DAILY (6 AM), Hagen, Firas, DO, 40 mg at 03/10/23 0601 azaTHIOprine 50 mg tab(s) (IMURAN), 50 mg, ORAL, DAILY, Hagen, Firas, DO, 50 mg at 03/10/23 08 finasteride 5 mg tab(s) (PROSCAR), 5 mg, ORAL, DAILY, Hagen, Firas, DO, 5 mg at 03/10/23 08 tamsulosin 0.4 mg cap(s) (FLOMAX), 0.4 mg, ORAL, BID, Hagen, Firas, DO, 0.4 mg at 03/10/23 08 calcitriol 0.5 mcg cap(s) (ROCALTROL), 0.5 mcg, ORAL, q 48 HR, Hagen, Firas, DO, 0.5 mcg at 03/09/23 08 oxyCODONE IR 5-10 mg tab(s) (ROXICODONE), 5-10 mg, ORAL, q 6 H PRN, Irving Osorio DO, 10 mg at 03/09/232044 levoFLOXacin 500 mg tab(s) (LEVAQUIN), 500 mg, ORAL, q 48 HR, Irving Osorio DO, 500 mg at 03/10/23840 metoprolol tartrate (short acting) 12.5 mg tab(s) (LOPRESSOR), 12.5 mg, ORAL, BID, Irving Osorio DO, 12.5 mg at 03/10/23 08 heparin 5,000 Units injection, 5,000 Units, SUBCUTANEOUS, q 12 H, Irving Osorio DO, 5,000 Units at 03/09/232040 senna 17.2 mg tab(s) (SENOKOT), 17.2 mg, ORAL, DAILY, Irving Osorio DO, 17.2 mg at 03/10/23 08 polyethylene glycol 3350 17 g packet, 17 g, ORAL, DAILY, Irving Osorio DO, 17 g at 03/10/23 0840 pregabalin 25 mg cap(s) (LYRICA), 25 mg, ORAL, BID, Irving Osorio, , 25 mg at 03/10/23 0841 NaCl 0.9% iv flush bag, 20 mL, INTRAVENOUS, PRN, Irving Osorio DO, Last Rate: 250 mL/hr at 03/06/23 0829, 20 mL at 03/06/23 0829 mirtazapine (REMERON) 15 mg tablet, Take 1 tablet by mouth daily at bedtime., Disp: 90 tablet, Rfl: 0 calcium carbonate (TUMS) 500 mg chew, Take 2 tablets by mouth three times a day for 2 days., Disp: 12 tablet, Rfl: 0 pregabalin (LYRICA) 25 mg capsule, Take 1 capsule by mouth two times a day for 90 days., Disp: 60 capsule, Rfl: 2 metoprolol tartrate, short acting, (LOPRESSOR) 25 mg tablet, Take 1 tablet by mouth once daily., Disp: 30 tablet, Rfl: 2 [START ON 03/11/2023] polyethylene glycol 3350 17 gram packet, Take 1 Packet by mouth once daily for 5 days. Dissolve dose in 4 - 8 ounces of liquid and take as directed., Disp: 5 Packet, Rfl: 0 senna (SENOKOT) 8.6 mg tab, Take 2 tablets by mouth two times a day., Disp: 5 tablet, Rfl: 0 omeprazole (PRILOSEC) 20 mg capsule, Take 2 capsules by mouth daily before breakfast. 1/2 hr before meal., Disp: 60 capsule, Rfl: 0 minocycline (MINOCIN, DYNACIN) 100 mg capsule, Take 1 capsule by mouth two times a day for 9 days., Disp: 18 capsule, Rfl: 0 levoFLOXacin (LEVAQUIN) 500 mg tablet, Take 1 tablet by mouth every 48 hours for 9 days., Disp: 5 tablet, Rfl: 0 PHYSICAL EXAMINATION: 03/09/235 03/10/23 0530 03/10/23 0841 03/10/23 1420 BP: 136/86 (!) 124/44 134/69 134/74 Pulse: 110 101 94 99 Resp: 18 18 18 18 Temp: 37.8 ?C (100 ?F) 36.9 ?C (98.4 ?F) 36.1 ?C (97 ?F) 36.9 ?C (98.4 ?F) TempSrc: Oral Oral Oral Oral SpO2: 95% 95% Weight: Height: Admit (more content not included)...[facility]10-23-2023 Note HNO ID: [id number] Author: Clay Grullon RN Service: Dialysis Author Type: Registered Nurse Type: Nursing Progress Note Filed: 03/10/2023 1:08 PM Note Text: Hemo treatment complete, tolerated well,fluid [facility] 1 [facility]23 NoteHNO ID: [id number] Author: James Yadav MD Service: Hospital Medicine Author Type: Physician Type: Progress Notes Filed: 03/10/2023 2:56 PM Note Text: DEPARTMENT OF HOSPITAL MEDICINE PROGRESS NOTE SERVICE DATE: 03/09/2023 SERVICE TIME: 11:45 AM Hospital Medicine/Primary Attending: James Yadav MD NIGHT AND WEEKEND COVERAGE: After 7pm please page [phone] CHIEF COMPLAINT: Follow-up for peritoneal 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 Daughters in the room visiting. Pain and swelling in RUE better Updated regarding plan of care. All questions answered and concerns addressed. OBJECTIVE: PHYSICAL EXAM: BP 141/80 Pulse 110 Temp (Src) 98.8 (Oral) Resp 18 Ht 5' 8" (1.73m) Wt 212 lb 11.2 oz (96.5kg) SpO2 95% BMI 32.35 kg/(m2). O2 Therapy: Room Air General - AANDOx3, NAD, Calm, elderly man, chronically ill-appearing, not in painful distress CV - RRR S1 S2, No M/R/G RESP - CTA B/L No wheezes, ronchi, rales ABD - soft, NT, ND +BS EXT -IV access in the right forearm proximally and distally both indurated, red warm and tender. NEURO - CN II-XII grossly intact, no focal deficits MEDICATIONS: Current Facility-Administered Medications Medication Dose Route Frequency NaCl 0.9% iv flush bag 20 mL INTRAVENOUS PRN metoprolol tartrate (short acting) 12.5 mg tab(s) (LOPRESSOR) 12.5 mg ORAL BID heparin 5,000 Units injection 5,000 Units SUBCUTANEOUS q 12 H senna 17.2 mg tab(s) (SENOKOT) 17.2 mg ORAL DAILY polyethylene glycol 3350 17 g packet 17 g ORAL DAILY pregabalin 25 mg cap(s) (LYRICA) 25 mg ORAL BID oxyCODONE IR 5-10 mg tab(s) (ROXICODONE) 5-10 mg ORAL q 6 H PRN levoFLOXacin 500 mg tab(s) (LEVAQUIN) 500 mg ORAL q 48 HR prochlorperazine 10 mg injection (COMPAZINE) 10 mg INTRAVENOUS q 6 H PRN metoclopramide HCl 5 mg (REGLAN) 5 mg ORAL q 8 H PRN promethazine 25 mg tab(s) (PHENERGAN) 25 mg ORAL q 6 H PRN mirtazapine 15 mg (REMERON) 15 mg ORAL AT BEDTIME pantoprazole DR 40 mg tab(s) (PROTONIX) 40 mg ORAL DAILY (6 AM) azaTHIOprine 50 mg tab(s) (IMURAN) 50 mg ORAL DAILY finasteride 5 mg tab(s) (PROSCAR) 5 mg ORAL DAILY tamsulosin 0.4 mg cap(s) (FLOMAX) 0.4 mg ORAL BID calcitriol 0.5 mcg cap(s) (ROCALTROL) 0.5 mcg ORAL q 48 HR minocycline 100 mg cap(s) (MINOCIN, DYNACIN) 100 mg ORAL BID DATA: Diagnostic tests reviewed for today's visit: CBC: No results for input(s): "WBC", "RBC", "HB", "HCT", "PLT", "MCV", "MCH", "MPV", "RDW" in the last 24 hours. Coags: No results for input(s): "PT", "INR", "APTT" in the last 24 hours. BMP: Recent Labs 03/08/23418 NA 133* K 4.3 CHLOR 99 CO2 24 BUN 37* CREAT 2.79* GLUC 96 CMP: Recent Labs 03/08/23418 NA 133* K 4.3 CHLOR 99 CO2 24 BUN 37* CREAT 2.79* GLUC 96 CA 8.2* ANION 10 Cardiac Enzymes: No results for input(s): "CK", "MB", "CKMB", "TROPT" in the last 24 hours. Liver Function, Amylase, Lipase: Recent Labs 03/08/23418 ALB 2.8* MG/PHOS: Recent Labs 03/08/23418 P 3.1 Renal Panel: Recent Labs 03/08/23418 CREAT 2.79* BUN 37* GLUC 96 CA 8.2* P 3.1 CHLOR 99 K 4.3 CO2 24 NA 133* Heme: No results for input(s): "RETICP", "ABSRETIC", "LD", "AMANDA", "FE", "TIBC", "TRANSFERSAT" in the last 24 hours. 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 - S/p PD catheter removal 03/05. - Lost IV access. We will continue with levofloxacin's family milligrams daily and per infectious disease okay to switch to oral minocycline 100 mg twice a day. Appreciate input from infectious disease. 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 HD via LUE fistula 03/05 # Abdominal pain due to peritonitis - Oxycodone worked better than Dilaudid - Oxycodone 5 to 10 mg p.o. for moderate to severe pain respectively. Monitor for sedation and undue side effects given patient's renal failure. #Peripheral neuropathy. Controlled. Continue gabapentin 100 mg p.o. twice daily #HTN. Controlled. Continue metoprolol 12.5 mg p.o. twice daily #CKD anemia. Hb stable. Monitor #Constipation. Senna and MiraLAX VTE Prophylaxis: As per primary team Disposition: Home Plan of care discussed with: Provider, RN, Patient SIGNATURE: James Yadav MD PATIENT NAME: Franklin Burton DATE: March 09, 2023 TIME: 11:45 AM PAGER/CONTACT #: [facility]10-21-2023 NoteHNO ID: [id number] Author: James Yadav MD Service: Hospital Medicine Author Type: Physician Type: Progress Notes Filed: 03/08/2023 5:49 PM Note Text: DEPARTMENT OF HOSPITAL MEDICINE PROGRESS NOTE SERVICE DATE: 03/08/2023 SERVICE TIME: 5:45 PM Hospital Medicine/Primary Attending: James Yadav MD NIGHT AND WEEKEND COVERAGE: After 7pm please page [phone] CHIEF COMPLAINT: Follow-up for peritoneal 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 Spouse in the room visiting. Updated regarding plan of care. All questions answered and concerns addressed. Patient complaining of pain and redness involving IV line sites in his right upper extremity. OBJECTIVE: PHYSICAL EXAM: BP 141/80 Pulse 110 Temp (Src) 98.8 (Oral) Resp 18 Ht 5' 8" (1.73m) Wt 212 lb 11.2 oz (96.5kg) SpO2 95% BMI 32.35 kg/(m2). O2 Therapy: Room Air General - AANDOx3, NAD, Calm, elderly man, chronically ill-appearing, mild painful distress CV - RRR S1 S2, No M/R/G RESP - CTA B/L No wheezes, ronchi, rales ABD - soft, NT, ND +BS EXT -IV access in the right forearm proximally and distally both indurated, red warm and tender. NEURO - CN II-XII grossly intact, no focal deficits MEDICATIONS: Current Facility-Administered Medications Medication Dose Route Frequency NaCl 0.9% iv flush bag 20 mL INTRAVENOUS PRN metoprolol tartrate (short acting) 12.5 mg tab(s) (LOPRESSOR) 12.5 mg ORAL BID heparin 5,000 Units injection 5,000 Units SUBCUTANEOUS q 12 H senna 17.2 mg tab(s) (SENOKOT) 17.2 mg ORAL DAILY polyethylene glycol 3350 17 g packet 17 g ORAL DAILY pregabalin 25 mg cap(s) (LYRICA) 25 mg ORAL BID oxyCODONE IR 5-10 mg tab(s) (ROXICODONE) 5-10 mg ORAL q 6 H PRN levoFLOXacin 500 mg tab(s) (LEVAQUIN) 500 mg ORAL q 48 HR prochlorperazine 10 mg injection (COMPAZINE) 10 mg INTRAVENOUS q 6 H PRN metoclopramide HCl 5 mg (REGLAN) 5 mg ORAL q 8 H PRN promethazine 25 mg tab(s) (PHENERGAN) 25 mg ORAL q 6 H PRN mirtazapine 15 mg (REMERON) 15 mg ORAL AT BEDTIME pantoprazole DR 40 mg tab(s) (PROTONIX) 40 mg ORAL DAILY (6 AM) azaTHIOprine 50 mg tab(s) (IMURAN) 50 mg ORAL DAILY finasteride 5 mg tab(s) (PROSCAR) 5 mg ORAL DAILY tamsulosin 0.4 mg cap(s) (FLOMAX) 0.4 mg ORAL BID calcitriol 0.5 mcg cap(s) (ROCALTROL) 0.5 mcg ORAL q 48 HR minocycline 100 mg cap(s) (MINOCIN, DYNACIN) 100 mg ORAL BID DATA: Diagnostic tests reviewed for today's visit: CBC: No results for input(s): "WBC", "RBC", "HB", "HCT", "PLT", "MCV", "MCH", "MPV", "RDW" in the last 24 hours. Coags: No results for input(s): "PT", "INR", "APTT" in the last 24 hours. BMP: Recent Labs 03/08/23418 NA 133* K 4.3 CHLOR 99 CO2 24 BUN 37* CREAT 2.79* GLUC 96 CMP: Recent Labs 03/08/23418 NA 133* K 4.3 CHLOR 99 CO2 24 BUN 37* CREAT 2.79* GLUC 96 CA 8.2* ANION 10 Cardiac Enzymes: No results for input(s): "CK", "MB", "CKMB", "TROPT" in the last 24 hours. Liver Function, Amylase, Lipase: Recent Labs 03/08/23418 ALB 2.8* MG/PHOS: Recent Labs 03/08/23418 P 3.1 Renal Panel: Recent Labs 03/08/23418 CREAT 2.79* BUN 37* GLUC 96 CA 8.2* P 3.1 CHLOR 99 K 4.3 CO2 24 NA 133* Heme: No results for input(s): "RETICP", "ABSRETIC", "LD", "AMANDA", "FE", "TIBC", "TRANSFERSAT" in the last 24 hours. 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 - S/p PD catheter removal 03/05. - Lost IV access. We will continue with levofloxacin's family milligrams daily and per infectious disease okay to switch to oral minocycline 100 mg twice a day. Appreciate input from infectious disease. 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 HD via LUE fistula 03/05 # Abdominal pain due to peritonitis - Oxycodone worked better than Dilaudid - Oxycodone 5 to 10 mg p.o. for moderate to severe pain respectively. Monitor for sedation and undue side effects given patient's renal failure. #Peripheral neuropathy. Controlled. Continue gabapentin 100 mg p.o. twice daily #HTN. Controlled. Continue metoprolol 12.5 mg p.o. twice daily #CKD anemia. Hb stable. Monitor #Constipation. Senna and MiraLAX VTE Prophylaxis: As per primary team Disposition: Home Plan of care discussed with: Provider, RN, Patient SIGNATURE: James Yadav MD PATIENT NAME: Franklin Burton DATE: March 08, 2023 TIME: 5:45 PM PAGER/CONTACT #: [facility]10-20-2023 NoteHNO ID: [id number] Author: Cornel Pittman RN Service: Care Management Author Type: Registered Nurse Type: Care Mgt Progress Note Filed: 03/07/2023 4:46 PM Note Text: CARE MANAGEMENT PROGRESS NOTE SERVICE DATE: 03/07/2023 SERVICE TIME: 5 LOS: 6 days Possible weekend D/C? Awaiting dialysis approval, still pending with [facility]. Family able to transport at D/C. Will continue to follow. SIGNATURE: Cornel Pittman RN PATIENT NAME: Franklin Burton DATE: March 07, 2023 TIME: 4:45 PM PAGER/CONTACT #: [phone] NoteHNO ID: [id number] Author: Maurice Kiran MD Service: Nephrology Author Type: Physician Type: Progress Notes Filed: 03/07/2023 3:32 PM Note Text: NEPHROLOGY DIALYSIS NOTE Visit date: 03/07/23, 3:26 PM Patient: Franklin Burton Room number: [id number]* Date of Admit: 02/28/2023 LOS: 6 days Referring physician: Sheri Hagen DO Outpatient Armored Car Guard: Daniel Pacheco MD ASSESSMENT: ESRD Anemia of ESRD Secondary Hyperparathyroidism of ESRD Hyponatremia Hypoalbuminemia PD peritonitis - S. maltophilia PLAN: Will plan dialysis on MWF schedule via his left upper extremity AVF Access: left UE AVF, no issues Daily weights Fluid restriction: 1200 mL daily Levofloxacin and eravacycline as inpatient, convert to oral levofloxacin and minocycline as outpatient per ID recommendations. Patient ok for discharge from renal standpoint once new unit has been confirmed. He would be ok for discharge this weekend without dialysis even if he is to start TTS as outpatient Dr. Yoseph Osborne to provide renal coverage 03/08 and 03/09. SUBJECTIVE: Patient with chronic, stable medical conditions as documented in the initial consultation. Last Dialysis Performed: 03/07 Approximate UF: 1 liters Interval history reviewed: no acute events Patient reports feeling poorly overall, although no specific complaints/ Still having some abdominal pain. Notes issues with RLS while on dialysis OBJECTIVE: CURRENT MEDICATIONS: prochlorperazine 10 mg injection (COMPAZINE), 10 mg, INTRAVENOUS, q 6 H PRN, Hagen, Firas, DO metoclopramide HCl 5 mg (REGLAN), 5 mg, ORAL, q 8 H PRN, Sheri Hagen, DO, 5 mg at 03/07/23 1323 promethazine 25 mg tab(s) (PHENERGAN), 25 mg, ORAL, q 6 H PRN, Hagen, Firas, DO mirtazapine 15 mg (REMERON), 15 mg, ORAL, AT BEDTIME, Hagen, Firas, DO, 15 mg at 03/06/[address] 40 mg tab(s) (PROTONIX), 40 mg, ORAL, DAILY (6 AM), Hagen, Firas, DO, 40 mg at 03/07/23 0536 aluminum-magnesium hydroxide-simethicone 200-200-20 mg/5 mL 30 mL, 30 mL, ORAL, q 6 H PRN, Hagen, Firas, DO azaTHIOprine 50 mg tab(s) (IMURAN), 50 mg, ORAL, DAILY, Hagen, Firas, DO, 50 mg at 03/07/23 1324 finasteride 5 mg tab(s) (PROSCAR), 5 mg, ORAL, DAILY, Hagen, Firas, DO, 5 mg at 03/07/23 1323 tamsulosin 0.4 mg cap(s) (FLOMAX), 0.4 mg, ORAL, BID, Hagen, Firas, DO, 0.4 mg at 03/07/23 1324 calcitriol 0.5 mcg cap(s) (ROCALTROL), 0.5 mcg, ORAL, q 48 HR, Hagen, Firas, DO, 0.5 mcg at 03/07/23 1324 calcium carbonate 1,000 mg chewable tab(s) (TUMS), 1,000 mg, ORAL, TID PRN, Irving Osorio DO, 1,000 mg at 03/06/23 2102 oxyCODONE IR 5-10 mg tab(s) (ROXICODONE), 5-10 mg, ORAL, q 6 H PRN, Irving Osorio DO, 10 mg at 03/07/23 1324 levoFLOXacin 500 mg tab(s) (LEVAQUIN), 500 mg, ORAL, q 48 HR, Irving Osorio, , 500 mg at 03/06/23 1001 eravacycline 100 mg in NaCl 0.9% 250 mL (XERAVA), 1 mg/kg/dose, INTRAVENOUS, q 12 H, Irving Osorio DO, Stopped at 03/06/23 2256 metoprolol tartrate (short acting) 12.5 mg tab(s) (LOPRESSOR), 12.5 mg, ORAL, BID, Irving Osorio DO, 12.5 mg at 03/06/23 2102 heparin 5,000 Units injection, 5,000 Units, SUBCUTANEOUS, q 12 H, Irving Osorio DO, 5,000 Units at 03/03/23 0853 senna 17.2 mg tab(s) (SENOKOT), 17.2 mg, ORAL, DAILY, DevonIrving brunson, DO, 17.2 mg at 03/07/23 1323 polyethylene glycol 3350 17 g packet, 17 g, ORAL, DAILY, Devon, Irving, DO, 17 g at 03/02/23 0810 pregabalin 25 mg cap(s) (LYRICA), 25 mg, ORAL, BID, Devon, Irving, DO, 25 mg at 03/07/23 1323 NaCl 0.9% iv flush bag, 20 mL, INTRAVENOUS, PRN, Devon, Irving, DO, Last Rate: 250 mL/hr at 03/06/23 0829, 20 mL at 03/06/23 0829 No current [facility]-ordered outpatient medications on file. PHYSICAL EXAMINATION: 03/06/23 0754 03/06/23 1440 03/06/23 2058 03/07/23 1328 BP: 143/77 143/66 157/77 (!) 97/47 Pulse: 93 77 84 79 Resp: 18 18 18 Temp: 37 ?C (98.6 ?F) 37.2 ?C (99 ?F) 37.2 ?C (99 ?F) TempSrc: Oral Oral Oral SpO2: 95% 97% 95% Weight: Height: Admit Wt: Weight: 96.5 kg (212 lb 11.2 oz) Todays Wt: Weight: 96.5 kg (212 lb 11.2 oz) Average, Min, and Max for last 24 hours Vitals: TEMPERATURE: Temp Av.2 ?C (99 ?F) Min: 37.2 ?C (99 ?F) Max: 37.2 ?C (99 ?F) RESPIRATIONS RANGE: Resp Av Min: 18 Max: 18 PULSE RANGE: Pulse Av.5 Min: 79 Max: 84 BLOOD PRESSURE RANGE: Systolic (24hrs), Av , Min:97 , Max:157 Diastolic (24hrs), Av, Min:47, Max:77 PULSE OXIMETRY RANGE: SpO2 Av % Min: 95 % Max: 95 % Estimated body mass index is 32.34 kg/m? as calculated from the following: Height as of this encounter: 172.7 cm (5' 8"). Weight as of this encounter: 96.5 kg (212 lb 11.2 oz). Intake/Output Summary (Last 24 hours) at 03/07/2023 1526 Last data filed at 03/06/2023 1812 Gross per 24 hour Intake 120 ml Output -- Net 120 ml Genera (more content not included)...[facility]10-20-2023 Note HNO ID: [id number] Author: Sheri Hagen DO Service: Hospital Medicine Author Type: Physician Type: Progress Notes Filed: 03/07/2023 3:06 PM Note Text: HOSPITAL MEDICINE PROGRESS NOTE SERVICE DATE: March 07, 2023 SERVICE TIME: 3:06 PM Hospital Medicine/Primary Attending: Sheri Hagen DO NIGHT AND WEEKEND COVERAGE: After 7pm please page [phone] CHIEF COMPLAINT: Peritonitis (HCC) (POA: Yes) ESRD (end stage renal disease) (HCC) (POA: Yes) Peritoneal dialysis catheter in situ (HCC) (POA: Yes) 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 His peritoneal dialysis catheter was removed 03/05/2023. He was started on levofloxacin eravacycline inpatient with plans to send home on levofloxacin and minocycline. 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 - S/p PD catheter removal 03/05. - Cont levofloxacin and eravacycline (home on levofloxacin and minocycline) - Patient needs a community HD chair. CM following. 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 HD via LUE fistula 03/05 # Abdominal pain due to peritonitis - Oxycodone worked better than Dilaudid - Oxycodone 5 to 10 mg p.o. for moderate to severe pain respectively #Peripheral neuropathy. Controlled. Continue gabapentin 100 mg p.o. twice daily #HTN. Controlled. Continue metoprolol 12.5 mg p.o. twice daily #CKD anemia. Hb stable. Monitor #Constipation. Senna and MiraLAX SUBJECTIVE: Pt seen and examined. Patient denies CP, SOB, fevers, chills, nausea, or emesis. OBJECTIVE: PHYSICAL EXAM: BP 97/47 Pulse 79 Temp (Src) 99 (Oral) Resp 18 Ht 5' 8" (1.73m) Wt 212 lb 11.2 oz (96.5kg) SpO2 95% BMI 32.35 kg/(m2). Physical Exam Vitals and nursing note reviewed. Constitutional: General: He is not in acute distress. Eyes: General: Right eye: No discharge. Left eye: No discharge. Pulmonary: Effort: No respiratory distress. Abdominal: General: There is no distension. Tenderness: There is no guarding. Musculoskeletal: General: No swelling. Skin: Coloration: Skin is not jaundiced. Neurological: Mental Status: He is alert. Mental status is at baseline. Psychiatric: Mood and Affect: Mood normal. MEDICATIONS: Current Facility-Administered Medications Medication Dose Route Frequency NaCl 0.9% iv flush bag 20 mL INTRAVENOUS PRN metoprolol tartrate (short acting) 12.5 mg tab(s) (LOPRESSOR) 12.5 mg ORAL BID heparin 5,000 Units injection 5,000 Units SUBCUTANEOUS q 12 H senna 17.2 mg tab(s) (SENOKOT) 17.2 mg ORAL DAILY polyethylene glycol 3350 17 g packet 17 g ORAL DAILY pregabalin 25 mg cap(s) (LYRICA) 25 mg ORAL BID oxyCODONE IR 5-10 mg tab(s) (ROXICODONE) 5-10 mg ORAL q 6 H PRN levoFLOXacin 500 mg tab(s) (LEVAQUIN) 500 mg ORAL q 48 HR eravacycline 100 mg in NaCl 0.9% 250 mL (XERAVA) 1 mg/kg/dose INTRAVENOUS q 12 H calcium carbonate 1,000 mg chewable tab(s) (TUMS) 1,000 mg ORAL TID PRN prochlorperazine 10 mg injection (COMPAZINE) 10 mg INTRAVENOUS q 6 H PRN metoclopramide HCl 5 mg (REGLAN) 5 mg ORAL q 8 H PRN promethazine 25 mg tab(s) (PHENERGAN) 25 mg ORAL q 6 H PRN mirtazapine 15 mg (REMERON) 15 mg ORAL AT BEDTIME pantoprazole DR 40 mg tab(s) (PROTONIX) 40 mg ORAL DAILY (6 AM) aluminum-magnesium hydroxide-simethicone 200-200-20 mg/5 mL 30 mL 30 mL ORAL q 6 H PRN azaTHIOprine 50 mg tab(s) (IMURAN) 50 mg ORAL DAILY finasteride 5 mg tab(s) (PROSCAR) 5 mg ORAL DAILY tamsulosin 0.4 mg cap(s) (FLOMAX) 0.4 mg ORAL BID calcitriol 0.5 mcg cap(s) (ROCALTROL) 0.5 mcg ORAL q 48 HR DATA: Diagnostic tests reviewed for today's visit: CBC: No results for input(s): "WBC", "RBC", "HB", "HCT", "PLT", "MCV", "MCH", "MPV", "RDW" in the last 24 hours. Coags: No results for input(s): "PT", "INR", "APTT" in the last 24 hours. BMP: Recent Labs 03/07/23 0542 NA 131* K 4.9 CHL (more content not included)...[facility]10-19-2023 NoteHNO ID: [id number] Author: Sheri Hagen DO Service: Hospital Medicine Author Type: Physician Type: Progress Notes Filed: 03/06/2023 6:00 PM Note Text: HOSPITAL MEDICINE PROGRESS NOTE SERVICE DATE: March 06, 2023 SERVICE TIME: 6:00 PM Hospital Medicine/Primary Attending: Sheri Hagen DO NIGHT AND WEEKEND COVERAGE: After 7pm please page [phone] CHIEF COMPLAINT: Peritonitis (HCC) (POA: Yes) ESRD (end stage renal disease) (HCC) (POA: Yes) Peritoneal dialysis catheter in situ (HCC) (POA: Yes) 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 Sensitive to Bactrim, levofloxacin - Nephrology and ID following. Discussed 03/04; team in agreement to remove PD catheter. S/p PD catheter removal 03/05. - S/p IV vancomycin, ceftriaxone, cefepime - Cont levofloxacin and eravacycline D1 03/03- - Patient needs a community HD chair. CM following. 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 HD via LUE fistula 03/05 # Abdominal pain due to peritonitis - Oxycodone worked better than Dilaudid - Oxycodone 5 to 10 mg p.o. for moderate to severe pain respectively #Peripheral neuropathy. Controlled. Continue gabapentin 100 mg p.o. twice daily #HTN. Controlled. Continue metoprolol 12.5 mg p.o. twice daily #CKD anemia. Hb stable. Monitor #Constipation. Senna and MiraLAX SUBJECTIVE: Pt seen and examined. Patient denies CP, SOB, fevers, chills, nausea, or emesis. OBJECTIVE: PHYSICAL EXAM: BP 143/66 Pulse 77 Temp (Src) 99 (Oral) Resp 18 Ht 5' 8" (1.73m) Wt 212 lb 11.2 oz (96.5kg) SpO2 97% BMI 32.35 kg/(m2). O2 Therapy: Room Air Physical Exam Vitals and nursing note reviewed. Constitutional: General: He is not in acute distress. Eyes: General: Right eye: No discharge. Left eye: No discharge. Pulmonary: Effort: No respiratory distress. Abdominal: General: There is no distension. Tenderness: There is no guarding. Musculoskeletal: General: No swelling. Skin: Coloration: Skin is not jaundiced. Neurological: Mental Status: He is alert. Mental status is at baseline. Psychiatric: Mood and Affect: Mood normal. MEDICATIONS: Current Facility-Administered Medications Medication Dose Route Frequency NaCl 0.9% iv flush bag 20 mL INTRAVENOUS PRN metoprolol tartrate (short acting) 12.5 mg tab(s) (LOPRESSOR) 12.5 mg ORAL BID heparin 5,000 Units injection 5,000 Units SUBCUTANEOUS q 12 H senna 17.2 mg tab(s) (SENOKOT) 17.2 mg ORAL DAILY polyethylene glycol 3350 17 g packet 17 g ORAL DAILY pregabalin 25 mg cap(s) (LYRICA) 25 mg ORAL BID oxyCODONE IR 5-10 mg tab(s) (ROXICODONE) 5-10 mg ORAL q 6 H PRN levoFLOXacin 500 mg tab(s) (LEVAQUIN) 500 mg ORAL q 48 HR eravacycline 100 mg in NaCl 0.9% 250 mL (XERAVA) 1 mg/kg/dose INTRAVENOUS q 12 H oxymetazoline 0.05 % 2 [place] (GENASAL) 2 [place] EACH NOSTRIL BID PRN calcium carbonate 1,000 mg chewable tab(s) (TUMS) 1,000 mg ORAL TID PRN prochlorperazine 10 mg injection (COMPAZINE) 10 mg INTRAVENOUS q 6 H PRN metoclopramide HCl 5 mg (REGLAN) 5 mg ORAL q 8 H PRN promethazine 25 mg tab(s) (PHENERGAN) 25 mg ORAL q 6 H PRN mirtazapine 15 mg (REMERON) 15 mg ORAL AT BEDTIME [START ON 03/07/2023] pantoprazole DR 40 mg tab(s) (PROTONIX) 40 mg ORAL DAILY (6 AM) aluminum-magnesium hydroxide-simethicone 200-200-20 mg/5 mL 30 mL 30 mL ORAL q 6 H PRN azaTHIOprine 50 mg tab(s) (IMURAN) 50 mg ORAL DAILY finasteride 5 mg tab(s) (PROSCAR) 5 mg ORAL DAILY tamsulosin 0.4 mg cap(s) (FLOMAX) 0.4 mg ORAL BID [START ON 03/07/2023] calcitriol 0.5 mcg cap(s) (ROCALTROL) 0.5 mcg ORAL q 48 HR DATA: Diagnostic tests reviewed for today's visit: CBC: Recent Labs 03/06/23 0506 WBC 9.86 RBC 3.89* HB 12.2* HCT 36.3* PLT 203 MCV 93.3 MCH 31.4 MPV 9.3 Co (more content not included)...[facility]10-19-2023 NoteHNO ID: [id number] Author: Irving Garcia RPh Service: Pharmacy Author Type: Pharmacist Type: Plan of Care Filed: 03/06/2023 1:42 PM Note Text: PHARMACY MEDICATION REVIEW Patient Name: Franklin Burton : 1945 The following medications were updated within the HEADER SET UP OPERATOR medication list: Medications ADDED to HEADER SET UP OPERATOR medication list Finasteride Tamuslosin Azathioprine Calcitriol Medications CHANGED on HEADER SET UP OPERATOR medication list Omeprazole 20 mg to 40 mg daily Metoprolol 12.5 mg bid to 25 mg daily Medications REMOVED from HEADER SET UP OPERATOR medication list N/A Additional comments: Confirmed meds with patient and family who were not completely sure of meds. Called home pharmacy and confirmed all meds with pharmacist. Per family think he only takes metoprolol once daily, patient agrees, filled for bid though. Tamsulosin filled for 0.4 bid, family thinks only once daily but not sure, left as prescribed. The below information represents the best possible medication history: Yes Medication history completed by: Pharmacist: Irving Garcia RPh Source of history: Patient: Reliability of source: unable to provide, Pharmacy records: [facility], and [facility] records Medication nonadherence identified: No barriers noted Reconciliation completed: Yes Completed by: KELSI All HEADER SET UP OPERATOR medications addressed by LIP Patient interested in Bedside Delivery Services or using OP Pharmacy at discharge? Yes. Discharge Pharmacy Updated Pref[facility] outpatient [facility]: [id number] [place] [id number] - [address] [facility] - [phone] [id number] [facility] [address] [facility] [place] [id number] [facility] [address] - [phone] [facility] [address] [place] [address] [address] [facility] - [phone] [facility] [address] [place] [address] - [address] [facility] [phone] [facility] Allergies: Aspirin Other: See Comments Comment:Kidney issues Seasonal Allergies Other: See Comments Comment:Sneezing, itchy and watery eyes Prior to Admission Medications Prescriptions Last Dose Informant Patient Reported? Taking? azaTHIOprine (IMURAN) 50 mg tablet Yes Yes Sig: Take 50 mg by mouth once daily. calcitriol (ROCALTROL) 0.5 mcg capsule Yes Yes Sig: Take 0.5 mcg by mouth every 48 hours. finasteride (PROSCAR) 5 mg tablet Yes Yes Sig: Take 5 mg by mouth once daily. gabapentin (NEURONTIN) 100 mg capsule Yes Yes Sig: TAKE 2 CAPSULES BY MOUTH ONCE DAILY AT BEDTIME FOR 90 DAYS metoprolol tartrate, short acting, 25 mg tablet No Yes Sig: Take 0.5 tablets by mouth twice daily. Patient taking differently: Take 25 mg by mouth once daily. omeprazole (PRILOSEC) 20 mg capsule No Yes Sig: Take 1 capsule by mouth daily before breakfast. 1/2 hr before meal. Patient taking differently: Take 40 mg by mouth daily before breakfast. 1/2 hr before meal. oxyCODONE-acetaminophen (PERCOCET) 5-325 mg tablet Yes Yes Sig: TAKE 1 TABLET BY MOUTH EVERY 8 HOURS NEEDED FOR PAIN FOR 30 DAYS tamsulosin (FLOMAX) 0.4 mg Yes Yes Sig: Take 0.4 mg by mouth two times a day. Facility-Administered Medications: None Irving Garcia RPh 03/06/2023[facility]10-19-2023 NoteHNO ID: [id number] Author: Maurice Kiran MD Service: Nephrology Author Type: Physician Type: Progress Notes Filed: 03/06/2023 3:15 PM Note Text: DAILY NEPHROLOGY SERVICE PROGRESS NOTE PATIENT NAME: Franklin Burton ROOM:[address] SERVICE DATE: 03/06/2023 SERVICE TIME: 7:28 AM Length of stay:5 day(s) Subjective INTERVAL HISTORY: No acute overnight events. Patient with some persistent abdominal pain and bloating. Has had a bowel movement since removal of PD cath. Some difficulty eating food, but able to get soup down today. ROS: denies fevers, chills, chest pain, dyspnea, palpitations, new rash, or hiccups. All other ROS negative. MEDICATIONS: Current Medications Reviewed/MARS checked. Objective PHYSICAL EXAM: 03/05/23 1717 03/05/23 1921 03/05/238 03/06/23 0007 BP: 140/72 130/70 126/63 110/60 Pulse: 78 97 88 70 Resp: 18 18 Temp: 36.5 ?C (97.7 ?F) 37.1 ?C (98.8 ?F) 36.8 ?C (98.2 ?F) TempSrc: Temporal Oral Oral SpO2: 96% 95% 96% Weight: Height: Admission weight: 96.5 kg (212 lb 11.2 oz) Last Wt 02/28/23 : 96.5 kg (212 lb 11.2 oz) 12/01/22 : 96.6 kg (213 lb) 12/03/13 : 88 kg (194 lb) 03/22/13 : 92.1 kg (203 lb) 02/26/13 : 91.9 kg (202 lb 11.2 oz) Intake/Output 03/02/23 07 - 03/03/23 0659 03/03/23699 - 03/04/23 0659 03/04/23 07 - 03/05/23 0659 03/05/23 07 - 03/06/23 0659 Intake (ml) -- 650 -- 770 Output (ml) 400 1400 -- -700 Net (ml) -400 -750 -- 1470 Date 03/05/23 0700 - 03/06/23 0659 03/06/23 0700 - 03/07/23 0659 Shift 1568-4968 2600-5766 3019-4113 24 Hour Total 1497-7203 7381-4035 4275-9179 24 Hour Total INTAKE PO 120 120 PO 120 120 IV 250 250 Volume (mL) (eravacycline 100 mg in NaCl 0.9% 250 mL (XERAVA)) 250 250 Dialysis 400 400 Dialysis intake 400 400 Shift Total 370 400 770 OUTPUT Dialysis -700 -700 Dialysis Output (Ultrafiltration) -700 -700 Shift Total -700 -700 Weight (kg) 96.5 96.5 96.5 96.5 96.5 96.5 96.5 96.5 General Appearance No acute distress, comfortable appearing, looks stated age, alert and oriented x 3 HEENT Neck anicteric sclera, moist mucus membranes, normal external ears/nares, no facial edema. supple neck, midline trachea without tracheal deviation, no discernible JVD, no palpable cervical or supraclavicular lymph nodes Chest symmetric, normal shape/expansion Heart RRR, nl S1 AND S2, no audible pericardial rubs, no audible murmurs, no palpable LV heave. Lungs clear to auscultation bilaterally, unlabored respirations without conversational dyspnea, no accessory muscle use Abdomen Skin soft without distension, no palpable organomegaly, normal bowel sounds, no abdominal striae, no rebound or guarding no rash or subcutaneous nodules, warm and dry skin with good turgor Musculoskeletal Extremities no synovitis or joint effusions noted, no leg edema, normal hair distribution on legs Vascular Access: Permanent Vascular access: Left upper extremity AVF. Access site demonstrates: normal thrill/bruit no osorio catheter present Neurologic no resting tremor, asterixis or ankle clonus. Able to follow commands. Psychiatric mood and affect animated, insight and judgment intact. Memory recall intact AVAILABLE DATA REVIEWED: Recent Labs 03/06/23 0506 03/05/23 0102 03/04/23 0443 03/03/23 0453 03/02/23 0256 03/01/23 0946 NA 133* 132* 135* 134* 131* 134* K 4.3 4.9 4.5 4.7 4.5 4.2 CHLOR 99 101 101 102 101 103 CO2 25 23 24 22 22 22 BUN 29* 33* 23 28* 26* 22 CREAT 2.39* 2.55* 2.28* 2.82* 2.94* 2.71* 2.71* GLUC 118* 102* 104* 100* 127* 154* ANION 9 8* 10 10 8* 9 CA 8.8 9.3 8.3* 9.0 8.7 8.7 ALB 3.4* 3.4* 3.4* 3.3* 3.1* 3.1* TPROT -- -- -- -- -- 5.3* ALKPHOS -- -- -- -- -- 125* Recent Labs 03/01/23 0946 AST 19 ALT 14 TBILI 0.4 Recent Labs 03/03/23 1046 03/01/23 0946 VANCORA 15.8 8.8* Recent Labs 03/06/23 0506 03/03/23 0453 03/01/23 0946 WBC 9.86 6.44 7.12 HB 12.2* 11.0* 10.6* HCT 36.3* 33.4* 32.3* PLT 203 140* 118* MCV 93.3 95.2 95.3 NEUTP 78.4 76.2 83.3 ABSNEUT 7.72* 4.91 5.93 LYMPHP 9.6 8.4 7.4 ABSLYMPH 0.95* 0.54* 0.53* MONOP 10.0 9.5 4.8 EOSINP 0.6 4.2 3.5 ABSEOSIN 0.06 0.27 0.25 No results for input(s): "FE", "TRANSFERSAT", "AMANDA", "FOLATE", "B12" in the last 2160 hours. Recent Labs 03/05/23 0102 INR 1.2 No results for input(s): "HGBU", "NITRITES", "SPGR", "UPH", "LEUKEST", "URBC", "UWBC", "BACTERIAUR", "HYALC" in the last 168 hours. No results for input(s): "MACREATRAT", "UPROT", "PCRAT", "EOSINSCRN", "UCR", "SSNA24", "UUNUR", "SSK24U" in the last 2160 hours. Recent Labs 03/03/23 1046 HBSAG Nonreactive No results for input(s): "MPAIGG", "MPAIGA", "MPAIGM", "INTP", "MPASTF", "UMPARSLT", "UMPASTREV" in the last 720 hours. No results for input(s): "CCLUR24", "CA24HR", "UCITC", "UNAT", "UOXALC", "UURICC" in the last 720 hours. Assessment/Plan 77 ye (more content not included)...[facility]10-19-2023 Note HNO ID: [id number] Author: Yair Hassan DO Service: General Surgery Author Type: Resident Type: Progress Notes Filed: 03/06/2023 1:19 PM Note Text: Attestation signed by Louie Lee MD at 03/26/2023 12:00 PM Attending Note I personally saw and examined the patient. I reviewed the resident's note. I agree with the resident's assessment and plan unless otherwise noted. Signature: Louie Lee MD Resident Supervision of Medical Student I personally saw and examined the patient. I reviewed the medical student's note. I agree with the medical student's assessment and plan unless otherwise noted below. - PPD 1 peritoneal dialysis catheter removal - Still experiencing nausea however abdominal pain is improved -Abdominal packing removed, wound inspected. Abdominal packing replaced and dry gauze applied over top. - Remove packing wick daily AND REPLACE DAILY for 1 week. - change overlying gauze once daily/PRN - No further surgical intervention at this time. -Continue antibiotic regimen per ID and primary team. -Anticipate general surgery signing off at this time. Please reach out to us should there be any questions or concerns regarding this patient. -Remainder of care per primary team Signature: Irving Osorio DO Date: 03/06/2023 Time: 7:37 AM Emergency General Surgery Progress Note SERVICE DATE: March 06, 2023 Emergency General Surgery Service Pager: For questions or concerns Mon-Fri 6a-5p please page [phone]. After 5pm and on Weekends and Holidays, please page [phone] if in ICU or [phone] if on RNF. SUBJECTIVE: Pt in some discomfort this morning, continues to have abdominal pain, 8/10 with movement. Is not tolerating diet due to nausea when eating. Had bowel movement yesterday and denies fever, shortness of breath. Diet: DIET RENAL Nausea with food Flatus Yes Bowel movement Yes Pain Controlled Yes Ambulating Yes OBJECTIVE: Vitals: Temp (24hrs), Av.7 ?C (98.1 ?F), Min:36.1 ?C (97 ?F), Max:37.6 ?C (99.7 ?F) BP 110/60 Pulse 70 Temp 36.8 ?C (98.2 ?F) (Oral) Resp 18 Ht 172.7 cm (5' 8") Wt 96.5 kg (212 lb 11.2 oz) SpO2 96% BMI 32.34 kg/m? O2 Therapy: Room Air IANDO: Date 03/05/23699 - 03/06/23 0603/06/23699 - 03/07/23 0659 Shift 2975-2258 3195-5556 7466-2206 24 Hour Total 2480-7996 5100-8358 0817-6495 24 Hour Total INTAKE PO 120 120 PO 120 120 IV 250 250 Volume (mL) (eravacycline 100 mg in NaCl 0.9% 250 mL (XERAVA)) 250 250 Dialysis 400 400 Dialysis intake 400 400 Shift Total 370 400 770 OUTPUT Dialysis -700 -700 Dialysis Output (Ultrafiltration) -700 -700 Shift Total -700 -700 Weight (kg) 96.5 96.5 96.5 96.5 96.5 96.5 96.5 96.5 MEDICATIONS Current Facility-Administered Medications Medication Dose Route Frequency - metoclopramide HCl 5 mg (REGLAN) 5 mg ORAL q 8 H PRN - oxymetazoline 0.05 % 2 [place] (GENASAL) 2 [place] EACH NOSTRIL BID PRN - calcium carbonate 1,000 mg chewable tab(s) (TUMS) 1,000 mg ORAL TID PRN - oxyCODONE IR 5-10 mg tab(s) (ROXICODONE) 5-10 mg ORAL q 6 H PRN - levoFLOXacin 500 mg tab(s) (LEVAQUIN) 500 mg ORAL q 48 HR - eravacycline 100 mg in NaCl 0.9% 250 mL (XERAVA) 1 mg/kg/dose INTRAVENOUS q 12 H - metoprolol tartrate (short acting) 12.5 mg tab(s) (LOPRESSOR) 12.5 mg ORAL BID - heparin 5,000 Units injection 5,000 Units SUBCUTANEOUS q 12 H - senna 17.2 mg tab(s) (SENOKOT) 17.2 mg ORAL DAILY - polyethylene glycol 3350 17 g packet 17 g ORAL DAILY - nystatin 5 mL oral liquid (MYCOSTATIN) 5 mL ORAL QID - pregabalin 25 mg cap(s) (LYRICA) 25 mg ORAL BID - NaCl 0.9% iv flush bag 20 mL INTRAVENOUS PRN Labs: Recent Labs 03/06/23 0506 03/05/23 0102 NA 133* 132* K 4.3 4.9 CHLOR 99 101 CO2 25 23 BUN 29* 33* CREAT 2.39* 2.55* GLUC 118* 102* ANION 9 8* CA 8.8 9.3 P 2.5* 2.9 ALB 3.4* 3.4* WBC 9.86 -- HB 12.2* -- HCT 36.3* -- PLT 203 -- INR -- 1.2 Physical Exam: GENERAL: No distress, Alert NEURO: AANDOx3, CN II-XII grossly intact HEENT: normocephalic, atraumatic LUNGS: Unlabored breathing, equal chest rise bilaterally CARDIAC: Regular rate, warm and well perfused distal extremities ABDOMEN: Soft, no localized tenderness to palpation, non-distended, surgical site was not closed after catheter removal to allow drainage. 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 Will continue to follow. SIGNATURE: Cornel Pittman RN PATIENT NAME: Franklin Burton DATE: March 05, 2023 TIME: 4:18 PM PAGER/CONTACT #: [phone] NoteHNO ID: [id number] Author: Chidi Frazier MD Service: Hospital Medicine Author Type: Physician Type: Progress Notes Filed: 03/05/2023 12:05 PM Note Text: INTERNAL MEDICINE PROGRESS NOTE Subjective Had surgery this morning. It went well. Abdominal pain 7/10. Nausea is better. No shortness of breath. Objective PHYSICAL EXAM: Vital Signs: BP 146/77 Pulse 79 Temp 36.8 ?C (98.2 ?F) (Oral) Resp 18 Ht 172.7 cm (5' 8") Wt 96.5 kg (212 lb 11.2 oz) SpO2 97% BMI 32.34 kg/m? Body mass index is 32.34 kg/m?. General: No acute distress Pulm: CTAB CV: RRR Abd: Soft, no abdominal tenderness , non-distended. BS+. Neuro: AANDO DATA: LABORATORY TESTS: CBC: Recent Labs 03/03/2345203/01/2346 WBC 6.44 7.12 HB 11.0* 10.6* PLT 140* 118* MCV 95.2 95.3 NEUTP 76.2 83.3 ABSNEUT 4.91 5.93 LYMPHP 8.4 7.4 CHEM: Recent Labs 03/05/2310103/04/2344203/03/23452 NA 132* 135* 134* K 4.9 4.5 4.7 CA 9.3 8.3* 9.0 P 2.9 2.1* 2.3* ANION 8* 10 10 CHLOR 101 101 102 CO2 23 24 22 GLUC 102* 104* 100* BUN 33* 23 28* CREAT 2.55* 2.28* 2.82* HEPATIC: Recent Labs 03/05/2310103/04/2344203/03/2345203/02/236 03/01/2346 ALT -- -- -- -- 14 AST -- -- -- -- 19 TBILI -- -- -- -- 0.4 ALKPHOS -- -- -- -- 125* ALB 3.4* 3.4* 3.3* < > 3.1* TPROT -- -- -- -- 5.3* < > = values in this interval not displayed. URINALYSIS:No results for input(s): "SPGR", "UBACTERIA", "LEUKEST", "SSA", "UWBC", "URBC", "UHB", "UPROT", "UGLUC", "UKET" in the last 168 hours. Invalid input(s): "NITR" COAG: Recent Labs 03/05/23101 INR 1.2 CARDIAC: No results for input(s): "CKMB", "CKMBP", "TROPT", "PBNP" in the last 168 hours. Lab Results Component Value Date/Time CULT No growth 3 days 03/02/2023 08:36 AM CULT No growth (<1,000 CFU/ml) 12/08/2012 12:50 PM RADIOLOGY: CT-Brain/Head without Contrast IMPORT Result Date: 02/28/2023 Images were obtained outside of [facility] CT-Abdomen/Pelvis W IV Cont ONLY IMPORT Result Date: 02/28/2023 Images were obtained outside of [facility] OT-Chest 1 View (Portable) IMPORT Result Date: 02/28/2023 Images were obtained outside of [facility] Assessment/Plan Peritonitis (HCC) (POA: Yes) ESRD (end stage renal disease) (HCC) (POA: Yes) Peritoneal dialysis catheter in situ (HCC) (POA: Yes) 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 (HCC) (POA: Yes) History of granulomatosis with polyangiitis (POA: Yes) Periumbilical abdominal pain (POA: Yes) Peripheral polyneuropathy (POA: Yes) 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 Sensitive to Bactrim, levofloxacin - Nephrology and ID following. Discussed 03/04; team in agreement to remove PD catheter. S/p PD catheter removal 03/05. - S/p IV vancomycin, ceftriaxone, cefepime - Cont levofloxacin and eravacycline D1 03/03- - Patient needs a community HD chair. CM following. 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 HD via LUE fistula 03/05 # Abdominal pain due to peritonitis - Oxycodone worked better than Dilaudid - Oxycodone 5 to 10 mg p.o. for moderate to severe pain respectively #Peripheral neuropathy. Controlled. Continue gabapentin 100 mg p.o. twice daily #HTN. Controlled. Continue metoprolol 12.5 mg p.o. twice daily #CKD anemia. Hb stable. Monitor #Constipation. Senna and MiraLAX QUALITY METRICS: VTE Prophylaxis: Heparin 5000 units Sub Q BID Disposition: Home Functional Status Prior to Admit: Independent. Lives with Code Status: Full code Plan of care discussed with: Provider, RN, Patient. Disclaimer This dictation was created using voice recognition software. Phonetic and/or minor grammatical errors may exist. This note is not final until staffed by the attending physician and authenticated by responsible provider. SIGNATURE: Chidi Frazier, [facility]10-18-2023 NoteHNO ID: [id number] Author: Irving Osorio DO Service: General Surgery Author Type: Resident Type: Progress Notes Filed: 03/05/2023 11:20 AM Note Text: Attestation signed by Louie Lee MD at 03/26/2023 11:57 AM Attending Note I personally saw and examined the patient. I reviewed the resident's note. I agree with the resident's assessment and plan unless otherwise noted. Signature: Louie Lee MD Emergency General Surgery Progress Note SERVICE DATE: March 05, 2023 Emergency General Surgery Service Pager: For questions or concerns Mon-Fri 6a-5p please page [phone]. After 5pm and on Weekends and Holidays, please page [phone] if in ICU or [phone] if on RNF. SUBJECTIVE: No acute events overnight. Patient states that his abdominal pain is mildly improved however he feels nauseous and is dry heaving. States that he had dialysis yesterday through his left AV fistula. Slated to have intraperitoneal dialysis catheter removed today in the OR. Tolerating diet DIET RENAL Nausea Yes Emesis No Flatus Yes Bowel movement No Pain Controlled Yes Ambulating No OBJECTIVE: Vitals: Temp (24hrs), Av.6 ?C (97.9 ?F), Min:36.1 ?C (97 ?F), Max:37.1 ?C (98.8 ?F) BP 146/77 Pulse 79 Temp 36.8 ?C (98.2 ?F) (Oral) Resp 18 Ht 172.7 cm (5' 8") Wt 96.5 kg (212 lb 11.2 oz) SpO2 97% BMI 32.34 kg/m? O2 Therapy: Room Air IANDO: Date 03/04/23 0700 - 03/05/23 0659 03/05/23 0700 - 03/06/23 0659 Shift 0596-6041 8397-2576 8648-9550 24 Hour Total 5895-8307 9630-0243 5623-6354 24 Hour Total INTAKE IV 250 250 Volume (mL) (eravacycline 100 mg in NaCl 0.9% 250 mL (XERAVA)) 250 250 Shift Total 250 250 OUTPUT Shift Total Weight (kg) 96.5 96.5 96.5 96.5 96.5 96.5 96.5 96.5 MEDICATIONS Current Facility-Administered Medications Medication Dose Route Frequency - metoclopramide HCl 5 mg (REGLAN) 5 mg ORAL q 8 H PRN - oxymetazoline 0.05 % 2 [place] (GENASAL) 2 [place] EACH NOSTRIL BID PRN - calcium carbonate 1,000 mg chewable tab(s) (TUMS) 1,000 mg ORAL TID PRN - oxyCODONE IR 5-10 mg tab(s) (ROXICODONE) 5-10 mg ORAL q 6 H PRN - levoFLOXacin 500 mg tab(s) (LEVAQUIN) 500 mg ORAL q 48 HR - eravacycline 100 mg in NaCl 0.9% 250 mL (XERAVA) 1 mg/kg/dose INTRAVENOUS q 12 H - metoprolol tartrate (short acting) 12.5 mg tab(s) (LOPRESSOR) 12.5 mg ORAL BID - heparin 5,000 Units injection 5,000 Units SUBCUTANEOUS q 12 H - senna 17.2 mg tab(s) (SENOKOT) 17.2 mg ORAL DAILY - polyethylene glycol 3350 17 g packet 17 g ORAL DAILY - nystatin 5 mL oral liquid (MYCOSTATIN) 5 mL ORAL QID - pregabalin 25 mg cap(s) (LYRICA) 25 mg ORAL BID - NaCl 0.9% iv flush bag 20 mL INTRAVENOUS PRN Labs: Recent Labs 03/05/23 0102 03/04/23 0443 03/03/23 0453 NA 132* 135* 134* K 4.9 4.5 4.7 CHLOR 101 101 102 CO2 23 24 22 BUN 33* 23 28* CREAT 2.55* 2.28* 2.82* GLUC 102* 104* 100* ANION 8* 10 10 CA 9.3 8.3* 9.0 P 2.9 2.1* 2.3* ALB 3.4* 3.4* 3.3* WBC -- -- 6.44 HB -- -- 11.0* HCT -- -- 33.4* PLT -- -- 140* INR 1.2 -- -- Physical Exam: GENERAL: No distress, Alert NEURO: AANDOx3, CN II-XII grossly intact HEENT: normocephalic, atraumatic LUNGS: Unlabored breathing, equal chest rise bilaterally CARDIAC: Regular rate, warm and well perfused distal extremities ABDOMEN: Soft, tenderness and erythema noted around peritoneal dialysis catheter site. 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 03/03/2023 - Fever and chills 03/03/2023 - Encounter for long-term (current) use of antibiotics 03/03/2023 - Dialysis patient ([facility]) 03/03/2023 - Dialysis-associated peritonitis (HCC) 03/03/2023 - ESRD (end stage renal disease) ([facility]) 03/01/2023 - Peritoneal dialysis catheter in situ ([facility]) 03/01/2023 - 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 After consultation with ID and nephrology, EGS consulted for removal of catheter. Hospital Course/Operations/Procedures: 03/05/2023 Procedure(s): REMOVAL OF PERMANENT INTRAPERITONEAL CATHETER Plan: Bacterial peritonitis secondary to perit (more content not included)...[facility]10-18-2023 NoteHNO ID: [id number] Author: Cornel Baez APRN.DISTILLATION OPERATOR Service: ? Author Type: Nurse Plant Pathologist Type: Anesthesia Procedure Notes Filed: 03/05/2023 9:13 AM Note Text: ANESTHESIOLOGY PROCEDURE NOTE Airway General Information Procedure Start Time/Medication Administration: 03/05/2023 8:50 AM Patient location during procedure: OR Timeout Performed Pre-procedure: timeout performed Consent Obtained: Yes Patient identity confirmed: arm band and patient Staffing Performed by: DISTILLATION OPERATOR Indications and Patient Condition Indications for airway management: anesthesia Preoxygenated: yes anesthesia circuit Patient position: sniffing Method: rapid sequence Cricoid Pressure: Yes Final Airway Details Final airway type: endotracheal airway Final Endotracheal Airway: ETT Cuffed: yes Successful intubation technique: direct laryngoscopy Blade: Aroldo Blade size: #4 ETT size (mm): 7.5 Cormack-Lehane Classification: grade I - full view of glottis Number of attempts at approach: 1 SIGNATURE: Cornel Baez APRN.DISTILLATION OPERATOR PATIENT NAME: Franklin Burton DATE: March 05, 2023 TIME: 9:13 AM CSN: [id number] NoteHNO ID: [id number] Author: Maurice Kiran MD Service: Nephrology Author Type: Physician Type: Progress Notes Filed: 03/04/2023 5:37 PM Note Text: NEPHROLOGY DIALYSIS NOTE Visit date: 03/04/23, 5:29 PM Patient: Franklin Burton Room number: [id number]* Date of Admit: 02/28/2023 LOS: 3 days Referring physician: Chidi Frazier MD Outpatient Armored Car Guard: Daniel Pacheco MD ASSESSMENT: ESRD Anemia of ESRD Secondary Hyperparathyroidism of ESRD PD peritonitis - S. maltophilia PLAN: Will plan dialysis on MWF schedule via his left upper extremity AVF Access: PD catheter, non-functional; left UE AVF, no issues Daily weights Fluid restriction: 1200 mL daily Levofloxacin and eravacycline per ID recommendations. Discussed care with Dr. Hunter. At this point, prudent approach would be to remove PD catheter (since it is non-functional) and treat the peritonitis for 2 weeks after removal. He has recommended an additional 2 weeks after antibiotics are complete prior to replacing the catheter. I discussed this with patient and he is in agreement. Per General Surgery, plan is for removal on 03/05 He will require placement in a dialysis unit for hemodialysis. He has requested [facility] as it is within a few miles of his home SUBJECTIVE: Patient with chronic, stable medical conditions as documented in the initial consultation. Last Dialysis Performed: 03/03 Approximate UF: 1 liters Interval history reviewed: no acute events Patient has controlled abdominal pain on opioid analgesics. Overall, he continues to feel poorly. OBJECTIVE: CURRENT MEDICATIONS: metoclopramide HCl 5 mg (REGLAN), 5 mg, ORAL, q 8 H PRN, Chidi Frazier MD, 5 mg at 03/04/23 1616 oxymetazoline 0.05 % 2 [place] (GENASAL), 2 [place], EACH NOSTRIL, BID PRN, Chidi Frazier MD calcium carbonate 1,000 mg chewable tab(s) (TUMS), 1,000 mg, ORAL, TID PRN, Chidi Frazier MD, 1,000 mg at 03/04/23 1539 oxyCODONE IR 5-10 mg tab(s) (ROXICODONE), 5-10 mg, ORAL, q 6 H PRN, Chidi Frazier MD, 10 mg at 03/04/23 0804 levoFLOXacin 500 mg tab(s) (LEVAQUIN), 500 mg, ORAL, q 48 HR, January Hunter MD, 500 mg at 03/04/23 0805 eravacycline 100 mg in NaCl 0.9% 250 mL (XERAVA), 1 mg/kg/dose, INTRAVENOUS, q 12 H, January Hunter MD, Stopped at 03/04/23 0950 metoprolol tartrate (short acting) 12.5 mg tab(s) (LOPRESSOR), 12.5 mg, ORAL, BID, Chidi Frazier MD, 12.5 mg at 03/04/23 0806 heparin 5,000 Units injection, 5,000 Units, SUBCUTANEOUS, q 12 H, Chidi Frazier MD, 5,000 Units at 03/03/23 0853 senna 17.2 mg tab(s) (SENOKOT), 17.2 mg, ORAL, DAILY, Chidi Frazier MD, 17.2 mg at 03/04/23 0805 polyethylene glycol 3350 17 g packet, 17 g, ORAL, DAILY, Chidi Frazier MD, 17 g at 03/02/23 0810 nystatin 5 mL oral liquid (MYCOSTATIN), 5 mL, ORAL, QID, Aleyda Wright MD, 5 mL at 03/04/23 1616 pregabalin 25 mg cap(s) (LYRICA), 25 mg, ORAL, BID, Chidi Frazier MD, 25 mg at 03/04/23 0806 NaCl 0.9% iv flush bag, 20 mL, INTRAVENOUS, PRN, Sukhdeep Cedeno MD No current [facility]-ordered outpatient medications on file. PHYSICAL EXAMINATION: 03/04/23 0428 03/04/23 0653 03/04/23 0802 03/04/23 1610 BP: 132/69 151/81 135/73 Pulse: 96 89 87 Resp: 18 18 18 Temp: 37.6 ?C (99.7 ?F) 36.9 ?C (98.4 ?F) 36.8 ?C (98.2 ?F) 36.7 ?C (98.1 ?F) TempSrc: Oral Oral Oral SpO2: 97% 97% 99% Weight: Height: Admit Wt: Weight: 96.5 kg (212 lb 11.2 oz) Todays Wt: Weight: 96.5 kg (212 lb 11.2 oz) Average, Min, and Max for last 24 hours Vitals: TEMPERATURE: Temp Av.9 ?C (98.5 ?F) Min: 36.7 ?C (98.1 ?F) Max: 37.6 ?C (99.7 ?F) RESPIRATIONS RANGE: Resp Av Min: 18 Max: 18 PULSE RANGE: Pulse Av.8 Min: 87 Max: 96 BLOOD PRESSURE RANGE: Systolic (24hrs), Av , Min:132 , Max:151 Diastolic (24hrs), Av, Min:69, Max:81 PULSE OXIMETRY RANGE: SpO2 Av % Min: 95 % Max: 99 % Estimated body mass index is 32.34 kg/m? as calculated from the following: Height as of this encounter: 172.7 cm (5' 8"). Weight as of this encounter: 96.5 kg (212 lb 11.2 oz). Intake/Output Summary (Last 24 hours) at 03/04/2023 1729 Last data filed at 03/03/2023 2301 Gross per 24 hour Intake 250 ml Output -- Net 250 ml Constitutional: Appearance: Normal appearance. HENT: Head: Normocephalic and atraumatic. Nose: Nose normal. Mouth/Throat: Mouth: Mucous membranes are moist. Eyes: Extraocular Movements: Extraocular movements intact. Cardiovascular: Rate and Rhythm: Normal rate and regular rhythm. Abdominal: General: Abdomen is flat. There is distension. Palpations: Abdomen is soft. Tenderness: There is abdominal tenderness. Musculoskeletal: Right lower leg: No edema. Left lower leg: No edema. Skin: Capillary Refill: Capillary refill takes less than 2 seconds. Neurological: Mental Status: He is alert. DATA: Recent (more content not included)...[facility]10-17-2023 Note HNO ID: [id number] Author: Cornel Pittman RN Service: Care Management Author Type: Registered Nurse Type: Care Mgt Initial Assessment Filed: 03/04/2023 4:11 PM Note Text: CARE MANAGEMENT: ASSESSMENT AND DISCHARGE PLAN SERVICE DATE: March 04, 2023 SERVICE TIME: 1544 PCP: No primary care provider on file. 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 Attempted to Assist with AD Completion: Yes Action: Education Provided Current Living Arrangements and Support Lives with: Spouse/significant other Type of Residence: Private Residence (House) Support: Baptism/lio community, Family members, Spouse/significant other How do you manage to accomplish the following: Independent: Ambulation;Bathe/Shower;Dress;Meals/Meal Prep;Going to the bathroom;Medication Management;Transportation to appointments/community Current Services/Equipment Current Post-Acute Service(s): DME Current DME Type: Grab bars, Rolling walker Discharge Planning Patient Goal(s): Be able to go home, General wellness [place] of Choice Explained: Are you interested in bedside delivery of your medications? Yes Discharge Planning Participant(s): Patient;Spouse/significant other Patient/Family Comments: Caregiver Assessment: Caregiver is ready, willing and able to meet the patient's needs as recommended by the inter-professional team: No Caregiver needed Transport at Discharge: Transportation Arrangements: Car Needs Prior to Discharge: Needs Prior to Discharge: Other: See Comment (Outpatient Dialysis Set Up) Post-Acute Discharge Plan: Met with patient and at bedside. Patient from home with , independent HEADER SET UP OPERATOR. +Rx, +PCP, +DME, Family able to transport. Current D/c plan for home with self care and family support. Outpatient dialysis set up started with Tamia Liu, awaiting approval and chair time. Will continue to follow. SIGNATURE: Cornel Pittman RN PATIENT NAME: Franklin Burton DATE: March 04, 2023 TIME: 4:09 PM CONTACT #: [phone] Note HNO ID: [id number] Author: Chidi Frazier MD Service: Hospital Medicine Author Type: Physician Type: Progress Notes Filed: 03/04/2023 2:17 PM Note Text: INTERNAL MEDICINE PROGRESS NOTE Subjective Feeling well today. Feels lousy. Nausea but no vomiting. Lower abdominal pain with movement. Objective PHYSICAL EXAM: Vital Signs: BP 151/81 Pulse 89 Temp 36.8 ?C (98.2 ?F) (Oral) Resp 18 Ht 172.7 cm (5' 8") Wt 96.5 kg (212 lb 11.2 oz) SpO2 97% BMI 32.34 kg/m? Body mass index is 32.34 kg/m?. General: No acute distress Pulm: CTAB CV: RRR Abd: Soft, no abdominal tenderness , non-distended. BS+. Peritoneal dialysis insertion site without warmth or erythema Neuro: AANDO DATA: LABORATORY TESTS: CBC: Recent Labs 03/03/2345203/01/23945 WBC 6.44 7.12 HB 11.0* 10.6* PLT 140* 118* MCV 95.2 95.3 NEUTP 76.2 83.3 ABSNEUT 4.91 5.93 LYMPHP 8.4 7.4 CHEM: Recent Labs 03/04/2344203/03/2345203/02/23255 NA 135* 134* 131* K 4.5 4.7 4.5 CA 8.3* 9.0 8.7 P 2.1* 2.3* 2.6* ANION 10 10 8* CHLOR 101 102 101 CO2 24 22 22 GLUC 104* 100* 127* BUN 23 28* 26* CREAT 2.28* 2.82* 2.94* HEPATIC: Recent Labs 03/04/2344203/03/2345203/02/2325503/01/23945 ALT -- -- -- 14 AST -- -- -- 19 TBILI -- -- -- 0.4 ALKPHOS -- -- -- 125* ALB 3.4* 3.3* 3.1* 3.1* TPROT -- -- -- 5.3* URINALYSIS:No results for input(s): "SPGR", "UBACTERIA", "LEUKEST", "SSA", "UWBC", "URBC", "UHB", "UPROT", "UGLUC", "UKET" in the last 168 hours. Invalid input(s): "NITR" COAG: No results for input(s): "APTT", "INR" in the last 168 hours. CARDIAC: No results for input(s): "CKMB", "CKMBP", "TROPT", "PBNP" in the last 168 hours. Lab Results Component Value Date/Time CULT No growth 2 days 03/02/2023 08:36 AM CULT No growth (<1,000 CFU/ml) 12/08/2012 12:50 PM RADIOLOGY: CT-Brain/Head without Contrast IMPORT Result Date: 02/28/2023 Images were obtained outside of [facility] CT-Abdomen/Pelvis W IV Cont ONLY IMPORT Result Date: 02/28/2023 Images were obtained outside of [facility] OT-Chest 1 View (Portable) IMPORT Result Date: 02/28/2023 Images were obtained outside of [facility] Assessment/Plan Peritonitis (HCC) (POA: Yes) ESRD (end stage renal disease) (HCC) (POA: Yes) Peritoneal dialysis catheter in situ (HCC) (POA: Yes) 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 (HCC) (POA: Yes) History of granulomatosis with polyangiitis (POA: Yes) Periumbilical abdominal pain (POA: Yes) Peripheral polyneuropathy (POA: Yes) 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 # Peritonitis due to peritoneal dialysis catheter stenotrophomomas maltophilia infection - Fever 101.3 03/01, afebrile since - PD culture at [facility] grew stenotrophomomas maltophilia. Sensitive to Bactrim and levofloxacin - Unable to send peritoneal fluid for cell count, Gram stain and culture as unable to tolerate dwell 03/01 - Nephrology and ID following. Discussed 03/04; team in agreement to remove PD catheter. Gen surgery consulted. Plan to remove PD catheter 03/05. N.p.o. after midnight. - S/p IV vancomycin, ceftriaxone, cefepime - Cont levofloxacin and eravacycline D1 03/03- # ESRD due to h/o GPA (in remission) - Nephrology following. HD 03/03 # Abdominal pain due to peritonitis - Oxycodone worked better than Dilaudid - Oxycodone 5 to 10 mg p.o. for moderate to severe pain respectively #Peripheral neuropathy. Controlled. Continue gabapentin 100 mg p.o. twice daily #HTN. Controlled. Continue metoprolol 12.5 mg p.o. twice daily #CKD anemia. Hb stable. Monitor #Constipation. Senna and MiraLAX QUALITY METRICS: VTE Prophylaxis: Heparin 5000 units Sub Q BID Disposition: Home Functional Status Prior to Admit: Independent. Lives with Code Status: Full code Plan of care discussed with: Provider, RN, Patient. Disclaimer This dictation was created using voice recognition software. Phonetic and/or minor grammatical errors may exist. This note is not final until staffed by the attending physician and authenticated by responsible provider. SIGNATURE: Chidi Frazier, [facility]10-17-2023 NoteHNO ID: [id number] Author: January Hunter MD Service: Infectious Disease Author Type: Physician Type: Progress Notes Filed: 03/04/2023 6:45 PM Note Text: PROGRESS NOTE INFECTIOUS DISEASE Attending seen independently on 03/04 at 1715 BRIEF SUMMARY: This is a 77 YO Quaker male who was seen by ID consultation for PD catheter infection. Patient is a 77 YO male with past medical history of ESRD due to GPA, HTN, T2DM who was transferred from [facility] for peritonits in the setting of peritoneal dialysis associated infection. House medicine requested consult based on [facility] medical records revealing PD catheter aspirate was positive for stenotrophomonas maltophilia. ASSESSMENT: Patient has peritoneal dialysis related infection with stenotrophomonas maltophilia. Blood cultures show no growth for 2 days. This morning he appears more fatigued, diaphoretic. His abdomen is non distended, soft, and displays no signs of peritonitis. PD catheter insertion site is dry without warmth, drainage, erythema. Patient is currently afebrile. 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 Recommend treatment for 2 to 3 weeks levofloxacin and eravacycline -Home will be PO of levofloxacin and minocycline #Peritonits from PD catheter -Patient's catheter will no flush or aspirate fluid, can try to salvage or consider removal, would recommend removal if nephrology agrees based on catheter's current non patent status and patient's ability to do hemodialysis via AV fistula #Fever and Chills from infection -CBC shows WBC continuing to trend down -Continue monitoring patient's clinical status, vitals, and CBC #ESRD in the setting of GPA -Patient placed back on hemodialysis -may affect dosages of abx, levofloxacin is cleared 80% by kidney, eravacycline does not require renal dose adjustments #HTN #Antibiotic monitoring -Increased fatigue compared to yesterday -No complaints of infusion site issues, such as burning, itching, thrombophlebitis Agree with above but see independent assessment and plan. Fevers and chills are now down what part of the diagnosis RECOMMENDATIONS: - Continue levofloxacin, eravacycline IV and switch to oral equivalents at discharge -Strongly consider catheter removal and change, catheter no longer functional increasing risk of retained organisms leading to treatment failure, further discussion with nephrology required Attending amendment: Patient to have line removed tomorrow after discussion with other attending Subjective SUBJECTIVE: Interval Events: 03/04-patient reports no acute overnight events. This morning he is feeling more fatigued, nauseated, diaphoretic, lost his appetite, and overall endorses feeling worse overall. Explains his abdomen feels about the same as yesterday and rates the pain as 3/10. Patient notes a small headache that is more discomfort than pain. There is no increased pain in abdomen with movement. He denies vomiting, neck stiffness, CVA tenderness, dysuria, spine tenderness, congestion, cough, diarrhea, arthralgia, joint swelling. Independent attending history: As above but now he is not as nauseated fatigued or diaphoretic. Still has about the same pain and tenderness. Right now they are happy to get this lined out and will continue hemodialysis. They are not sure they are going back to peritoneal but I told him that can be discussed with renal down the road Active Antimicrobials (From admission, onward) Start Stop 03/04/23 0900 levoFLOXacin 500 mg tab(s) (LEVAQUIN) 500 mg, ORAL, EVERY 48 HOURS -- 03/03/23 1500 eravacycline 100 mg in NaCl 0.9% 250 mL (XERAVA) 1 mg/kg/dose, INTRAVENOUS, EVERY 12 HOURS -- 03/01/23 1300 nystatin 5 mL oral liquid (MYCOSTATIN) 5 mL, ORAL, 4 TIMES DAILY -- Immunosuppressant: Objective Medications: Current Facility-Administered Medications Medication Dose Route Frequency NaCl 0.9% iv flush bag 20 mL INTRAVENOUS PRN metoprolol tartrate (short acting) 12.5 mg tab(s) (LOPRESSOR) 12.5 mg ORAL BID heparin 5,000 Units injection 5,000 Units SUBCUTANEOUS q 12 H senna 17.2 mg tab(s) (SENOKOT) 17.2 mg ORAL DAILY polyethylene glycol 3350 17 g packet 17 g ORAL DAILY nystatin 5 mL oral liquid (MYCOSTATIN) 5 mL ORAL QID pregabalin 25 mg cap(s) (LYRICA) 25 mg ORAL BID oxyCODONE IR 5-10 mg tab(s) (ROXICODONE) 5-10 mg ORAL q 6 H PRN levoFLOXacin 500 mg tab(s) (LEVAQUIN) 500 mg ORAL q 48 HR eravacycline 100 mg in NaCl 0.9% 250 mL (XERAVA) 1 mg/kg/dose INTRAVENOUS q 12 H metoclopramide HCl 5 mg (REGLAN) 5 mg ORAL q 8 H PRN OBJECTIVE: Physical Exam: BP 151/81 Pulse 89 Temp (Src) 98.2 (Oral) Resp 18 Ht 5' 8" (1.73m) Wt 212 lb 11.2 oz (96.5kg) SpO2 97% BMI 32.35 kg/(m2). O2 Therapy: Room (more content not included)...[facility] 03-03-2023 NoteHNO ID: [id number] Author: Neris Quezada, RN Service: ? Author Type: Registered Nurse Type: Progress Notes Filed: 03/03/2023 4:17 PM Note Text: Hemodialysis completed, pt tolerated well. See flow sheet. Fluid balance -1000 [facility]10-16-2023 NoteHNO ID: [id number] Author: Chidi Frazier MD Service: Hospital Medicine Author Type: Physician Type: Progress Notes Filed: 03/03/2023 12:42 PM Note Text: INTERNAL MEDICINE PROGRESS NOTE Subjective Pain with movement and defecation is unchanged. Patient denies sob, fever, N/V, diarrhea, or dysuria. Objective PHYSICAL EXAM: Vital Signs: BP 149/76 Pulse 94 Temp 36.9 ?C (98.4 ?F) (Oral) Resp 18 Ht 172.7 cm (5' 8") Wt 96.5 kg (212 lb 11.2 oz) SpO2 97% BMI 32.34 kg/m? Body mass index is 32.34 kg/m?. General: No acute distress Pulm: CTAB CV: RRR Abd: Soft, no abdominal tenderness , non-distended. BS+. Peritoneal dialysis insertion site without warmth or erythema Neuro: AANDO DATA: LABORATORY TESTS: CBC: Recent Labs 03/03/2345203/01/2346 WBC 6.44 7.12 HB 11.0* 10.6* PLT 140* 118* MCV 95.2 95.3 NEUTP 76.2 83.3 ABSNEUT 4.91 5.93 LYMPHP 8.4 7.4 CHEM: Recent Labs 03/03/2345203/02/2325503/01/23 0946 NA 134* 131* 134* K 4.7 4.5 4.2 CA 9.0 8.7 8.7 P 2.3* 2.6* 1.9* ANION 10 8* 9 CHLOR 102 101 103 CO2 22 22 22 GLUC 100* 127* 154* BUN 28* 26* 22 CREAT 2.82* 2.94* 2.71* 2.71* HEPATIC: Recent Labs 03/03/2345203/02/2325503/01/23 0946 ALT -- -- 14 AST -- -- 19 TBILI -- -- 0.4 ALKPHOS -- -- 125* ALB 3.3* 3.1* 3.1* TPROT -- -- 5.3* URINALYSIS:No results for input(s): "SPGR", "UBACTERIA", "LEUKEST", "SSA", "UWBC", "URBC", "UHB", "UPROT", "UGLUC", "UKET" in the last 168 hours. Invalid input(s): "NITR" COAG: No results for input(s): "APTT", "INR" in the last 168 hours. CARDIAC: No results for input(s): "CKMB", "CKMBP", "TROPT", "PBNP" in the last 168 hours. Lab Results Component Value Date/Time CULT No growth 1 day 03/02/2023 08:36 AM CULT No growth (<1,000 CFU/ml) 12/08/2012 12:50 PM RADIOLOGY: CT-Brain/Head without Contrast IMPORT Result Date: 02/28/2023 Images were obtained outside of [facility] CT-Abdomen/Pelvis W IV Cont ONLY IMPORT Result Date: 02/28/2023 Images were obtained outside of [facility] OT-Chest 1 View (Portable) IMPORT Result Date: 02/28/2023 Images were obtained outside of [facility] Assessment/Plan Peritonitis (HCC) (POA: Yes) ESRD (end stage renal disease) (HCC) (POA: Yes) Peritoneal dialysis catheter in situ (HCC) (POA: Yes) 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 Discussed with ED. Patient needs admission for further work-up and management # Peritonitis due to peritoneal dialysis catheter stenotrophomomas maltophilia infection - Fever 101.3 03/01, afebrile since - PD culture at [facility] grew stenotrophomomas maltophilia. Sensitive to Bactrim and levofloxacin - Unable to send peritoneal fluid for cell count, Gram stain and culture as unable to tolerate dwell 03/01 - Nephrology following. - ID consulted. Discussed in person 03/02 and recommended antibiotics with attempt to salvage the catheter - Continue IV vancomycin per pharmacy - Stop ceftriaxone 1 g IV 03/01-03/02 - C/w ceftriaxone 1 g IV every 24 03/02 - - Trial of IV levofloxacin complicated by pain at IV site. Patient was reluctant to oral levofloxacin. ID recommended Bactrim - Bactrim MWF 03/03 - - 03/03/2023 WBC 6, Hb 11, platelet 140, creatinine 2.8. Stable # ESRD due to h/o GPA (in remission) # Nephrology following. HD 03/03 #Abdominal pain due to peritonitis - Oxycodone worked better than Dilaudid - Oxycodone 5 to 10 mg p.o. for moderate to severe pain respectively #Peripheral neuropathy. Controlled. Continue gabapentin 100 mg p.o. twice daily #HTN. Controlled. Continue metoprolol 12.5 mg p.o. twice daily #CKD anemia. Hb stable. Monitor #Constipation. Senna and MiraLAX QUALITY METRICS: VTE Prophylaxis: Heparin 5000 units Sub Q BID Disposition: Home Functional Status Prior to Admit: Independent. Lives with Code Status: Full code Plan of care discussed with: Provider, RN, Patient. Disclaimer This dictation was created using voice recognition software. Phonetic and/or minor grammatical errors may exist. This note is not final until staffed by the attending physician and authenticated by responsible provider. SIGNATURE: Chidi Frazier, [facility]10-15-2023 NoteHNO ID: [id number] Author: Chidi Frazier MD Service: Hospital Medicine Author Type: Physician Type: Progress Notes Filed: 03/02/2023 11:46 AM Note Text: INTERNAL MEDICINE PROGRESS NOTE Subjective Fever last evening. Feels confused at the time. Feeling better this morning. Ongoing abdominal pain related to movement. Had a BM yesterday and that exacerbated pain. Patient denies sob, fever, N/V, diarrhea, or dysuria. Objective PHYSICAL EXAM: Vital Signs: BP 111/68 Pulse 80 Temp 36.6 ?C (97.9 ?F) (Oral) Resp 18 Ht 172.7 cm (5' 8") Wt 96.5 kg (212 lb 11.2 oz) SpO2 97% BMI 32.34 kg/m? Body mass index is 32.34 kg/m?. General: No acute distress Pulm: CTAB CV: RRR Abd: Soft, lower abdominal tenderness , non-distended. BS+. Peritoneal dialysis insertion site without warmth or erythema Neuro: AANDO DATA: LABORATORY TESTS: CBC: Recent Labs 03/01/23945 WBC 7.12 HB 10.6* PLT 118* MCV 95.3 NEUTP 83.3 ABSNEUT 5.93 LYMPHP 7.4 CHEM: Recent Labs 03/02/2325503/01/23945 NA 131* 134* K 4.5 4.2 CA 8.7 8.7 P 2.6* 1.9* ANION 8* 9 CHLOR 101 103 CO2 22 22 GLUC 127* 154* BUN 26* 22 CREAT 2.94* 2.71* 2.71* HEPATIC: Recent Labs 03/02/2325503/01/23945 ALT -- 14 AST -- 19 TBILI -- 0.4 ALKPHOS -- 125* ALB 3.1* 3.1* TPROT -- 5.3* URINALYSIS:No results for input(s): "SPGR", "UBACTERIA", "LEUKEST", "SSA", "UWBC", "URBC", "UHB", "UPROT", "UGLUC", "UKET" in the last 168 hours. Invalid input(s): "NITR" COAG: No results for input(s): "APTT", "INR" in the last 168 hours. CARDIAC: No results for input(s): "CKMB", "CKMBP", "TROPT", "PBNP" in the last 168 hours. Lab Results Component Value Date/Time CULT Blood culture incubating 03/02/2023 08:36 AM CULT No growth (<1,000 CFU/ml) 12/08/2012 12:50 PM RADIOLOGY: CT-Brain/Head without Contrast IMPORT Result Date: 02/28/2023 Images were obtained outside of [facility] CT-Abdomen/Pelvis W IV Cont ONLY IMPORT Result Date: 02/28/2023 Images were obtained outside of [facility] OT-Chest 1 View (Portable) IMPORT Result Date: 02/28/2023 Images were obtained outside of [facility] Assessment/Plan Peritonitis (HCC) (POA: Yes) ESRD (end stage renal disease) (HCC) (POA: Yes) Peritoneal dialysis catheter in situ (HCC) (POA: Yes) 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 Discussed with ED. 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 Sensitive to Bactrim and levofloxacin - Unable to send peritoneal fluid for cell count, Gram stain and culture as unable to tolerate dwell 03/01 - Nephrology following. Discussed in person. PD catheter would likely need removal. Consult ID - Continue IV vancomycin per pharmacy - Stop ceftriaxone 1 g IV 03/01-03/02 - Start ceftriaxone 1 g IV every 24 03/02 - - Bcx sent 03/02 #ESRD due to h/o GPA (in remission) # Nephrology following. Last HD 02/28, next 03/03 #Abdominal pain due to peritonitis - Dilaudid 2 mg p.o. every 3 hours for moderate to severe pain, Dilaudid 0.5 mg IV every 3 hours for breakthrough. Monitor toxicities; mentation, respiratory rate #Peripheral neuropathy. Controlled. Continue gabapentin 100 mg p.o. twice daily #HTN. Controlled. Continue metoprolol 12.5 mg p.o. twice daily #CKD anemia. Hb stable. Monitor #Constipation. Senna and MiraLAX QUALITY METRICS: VTE Prophylaxis: Heparin 5000 units Sub Q BID Disposition: Home Functional Status Prior to Admit: Independent. Lives with Code Status: Full code Plan of care discussed with: Provider, RN, Patient. Disclaimer This dictation was created using voice recognition software. Phonetic and/or minor grammatical errors may exist. This note is not final until staffed by the attending physician and authenticated by responsible provider. SIGNATURE: Chidi Frazier, [facility]10-15-2023 NoteHNO ID: [id number] Author: Aleyda Wright MD Service: Nephrology Author Type: Physician Type: Progress Notes Filed: 03/02/2023 11:17 AM Note Text: [facility] ([facility]) Nephrology Progress HANDP March 02, 2023 10:49 AM Patient: Franklin Burton [id number]* Date of Admit: 02/28/2023 LOS: 1 Referring physician: Chidi Frazier MD Outpatient Armored Car Guard: Tara Assessment AND Plan Franklin Burton is a 77 year old male with a past medical history of ESRD on PD, GPA, DM type 2, HTN, HFrEF, BPH, GERD, ROYAL, OA, obesity, RLS, who was transferred from [facility] with peritonitis. Chart reviewed. Per notes, PD cell count on 02/27 was WBC 1144, total cell toun 1190, polynuclear 67%. No RBCs. Notes from [facility] reviewed: patient presenting with abdominal pain on 02/25 (last PD was on 02/25), fluid analysis consistent with peritonitis. Patient and attempted to instill fluid but patient immediately developed abdominal pain as soon as solution instilled. CT showed diverticulosis without diverticulitis. He was initially treated with ceftriaxone and vancomycin, then switched to cefepime. Recommendations: 1.ESRD on PD: #1 PD catheter not working -yesterday we tried to obtained a repeat PD cell count. Patient was able to tolerate infusion of 500 ml of 1.5% solution but unable to get fluid out. RN attempted 200 ml infusion and couldn't retrieve anything out. -AXR sent and image reviewed, PD catheter tip on the lower pelvis. -discussed with primary team, will get opinion from ID #2 Peritonitis -he was broadened to cefepime and vancomycin today. -vancomycin level 8, received another dose yesterday -Febrile, blood cx sent -added nystatin for fungal prophylaxis while on broad spectrum antibiotics -spoke with [facility]: -gram stain 4+ gram neg rods, no cells seen, unable to centrifuge specimen due to insufficient volume -PD culture positive for stenotrophomomas maltophilia, they only checked sensitivity to bactrim and levofloxacin for this organism, it was sensitive, report obtained and placed on physical record. Per lab, urine cx had less 1000 colonies of MRSA. Recommend an ID consultation-discussed with primary team, they will obtain. #3 Dialysis needs -last BUN was 26 and serum creatinine was 2.94. Last HD was on Friday. -Will plan for HD on Friday via LUE AVF 2. Electrolytes/acid-base: last Na was 131, K 4.5, bicarb 22, stable. 3. Anemia: last Hgb was 10.6, he is on mircera per protocol. 4. QAMAR: last Ca was 8.7, repeat phosp was 2.6 today. He is not on any binders at this time. He is on calcitriol as outpatient. 5.BP/volume status: he is on metoprolol 12.5 mg bid. Last BP was 111/68. Per notes, it was thought he was close to TW on Friday. Thank you for allowing us to participate in the care of this patient. Please call with any questions. Dr. Kiran will be starting coverage tomorrow. Signed: Aleyda Martinez MD [facility] ([facility]) Personal Pager: [phone] Office Number: [phone] Office March 01, 2023 10:47 AM History of Present Illness Patient seen this am. Family at bedside. He reports ongoing abdominal pain this morning. He also reports night sweats. He had a temperature yesterday of 100.8. No nausea, vomiting or SOB. He had 1 BM yesterday and has been tolerating diet. Review of Systems Significant as listed in HPI otherwise 10 point ROS negative Medications Home Meds: reviewed. Inpatient Meds: Current Facility-Administered Medications Medication Dose Route Frequency vancomycin dosing and monitoring per pharmacy OTHER As Directed NaCl 0.9% iv flush bag 20 mL INTRAVENOUS PRN metoprolol tartrate (short acting) 12.5 mg tab(s) (LOPRESSOR) 12.5 mg ORAL BID heparin 5,000 Units injection 5,000 Units SUBCUTANEOUS q 12 H HYDROmorphone 0.5 mg injection (DILAUDID) 0.5 mg INTRAVENOUS q 3 H PRN HYDROmorphone 2 mg tab(s) (DILAUDID) 2 mg ORAL q 3 H PRN senna 17.2 mg tab(s) (SENOKOT) 17.2 mg ORAL DAILY polyethylene glycol 3350 17 g packet 17 g ORAL DAILY nystatin 5 mL oral liquid (MYCOSTATIN) 5 mL ORAL QID pregabalin 25 mg cap(s) (LYRICA) 25 mg ORAL BID cefepime 1 g in D5W 100 mL Vial-Bag (MAXIPIME) 1 g INTRAVENOUS q12h ALLERGIES Allergen Reactions Aspirin Other: See Comments Kidney issues Seasonal Allergies Other: See Comments Sneezing, itchy and watery eyes Vital Signs 03/01/237 03/01/23 2331 03/02/23 0253 03/02/23 0746 BP: 147/91 124/77 119/68 111/68 Pulse: 120 95 80 80 Resp: 20 20 18 18 Temp: (!) 38.5 ?C (101.3 ?F) 37 ?C (98.6 ?F) 36.6 ?C (97.9 ?F) 36.6 ?C (97.9 ?F) TempSrc: Oral Oral Oral Oral SpO2: 94% 97% 96% 97% Weight: Height: BP 111/68 Pulse 80 Temp 36.6 ?C (97.9 ?F) (Oral) Resp 18 Ht 172.7 cm (5' 8") Wt 96.5 kg (212 lb 11.2 oz) SpO2 97% BMI 32.34 kg/m (more content not included)...[facility]10-14-2023 Note HNO ID: [id number] Author: Neris Quezada, RN Service: ? Author Type: Registered Nurse Type: Progress Notes Filed: 03/01/2023 7:13 PM Note Text: Attempted to obtain cell count from PD catheter, unable to get fluid to drain out, instilled 200 ml more solution easily but unable to get the catheter to drain. PD cath dressing changed, site scabbed and reddened at insertion site. Dr Martinez notified and [facility]-2023 NoteHNO ID: [id number] Author: Neris Quezada, RN Service: ? Author Type: Registered Nurse Type: Progress Notes Filed: 03/01/2023 2:16 PM Note Text: Attempted to obtain PD fluid sample for culture, no fluid to drain at this time. 500 CC PD solution instilled in order to obtain culture later. Pt c/o severe abdominal pain when [facility] 03-01-2023 NoteHNO ID: [id number] Author: Note, Interface Service: ? Author Type: ? Type: Progress Notes Filed: 03/01/2023 5:03 AM Note Text: Epic Scheduled Downtime: 03/01/2023 1:00:00 AM to 03/01/2023 1:28:00 [facility]10-13-2023 Progress note Author Chey Bates [place] February 28, 2023 9:43am Note Date/Time February 28, 2023 7 :46am [facility] Medical Records Department [address] [place] [id number] Progress Note - Hospitalist 02/28/23 0742 MR#: [id number] Acct: [id number] Name: FRANKLIN BURTON Rep #:[id number] : 1945 77 From: Chey Bates MD PCP: Dr. Matilde Noguera MD Status:ADM IN Location: [place] [address] Reason for Visit Reason for Visit: Diagnoses Essential (primary) hypertension (02/27/23) Chronic kidney disease, stage 5 (02/27/23) End stage renal disease (02/27/23) Benign prostatic hyperplasia without lower urinary tract symptoms (02/27/23) Unspecified abdominal pain (02/27/23) Dependence on renal dialysis (02/27/23) Subjective Subjective Still continues to have abdominal pain, mostly when pushing it or moving around Objective Data Objective Data Vital Signs: Vital Signs Temp Pulse Resp BP Pulse Ox O2 Del Method 98.2 F 95 16 142/82 H 100 Room Air 02/28/23 03:00 02/28/23 03:00 02/28/23 03:00 02/28/23 03:00 02/28/23 03:00 02/28/23 03:00 Oxygen Delivery Method Room Air Weight: 96.1 kg Body Mass Index (BMI) 32.2 Intake & Output: Intake and Output for Last 24 Hours 02/26/23 02/27/23 02/28/23 23:59 23:59 23:59 Intake Total 1600 / 1600 Output Total 550 / 1000 450 / 450 Balance 1050 / 600 -450 / -450 Lab / Micro Data 02/28/23 05:32 02/28/23 05:32 Labs: Laboratory Results - last 24 hr 02/27/23 08:45: Fluid Source PERITONEAL FLUID, Fluid Color COLORLESS, Fluid Appearance SL CLDY, Fluid WBC 1.144, Fluid RBC < 0, Fluid Tot Cell Count 1.190, Fld Polynuclear WBCs # 0.765, Fld Polynuclear WBCs % 66.9, Fluid Mononuclear WBCs 0.379, Fld Mononuclear WBCs % 33.1, Fl Pathologist Comment May follow, Fluid Comment 2 SEE COMMENT 02/28/23 05:32: WBC 6.5, RBC 3.50 L, Hgb 11.2 L, Hct 33.9 L, MCV 96.9 H, MCH 32.0, MCHC 33.0, RDW Std Deviation 49.6 H, RDW Coeff of Misael 13.8, Plt Count 113 L, MPV 9.4, Immature Gran % (Auto) 0.300, Neut % (Auto) 84.4 H, Lymph % (Auto) 6.8 L, [place]pewa % (Auto) 6.2, Eos % (Auto) 1.8, Baso % (Auto) 0.5, Absolute Neuts (auto) 5.5, Absolute Lymphs (auto) 0.44 L, Nucleated RBC % 0, Differential Comment SCANNED, Sodium 138, Potassium 4.7, Chloride 106, Carbon Dioxide 23.0, Anion Gap 9, BUN 26 H, Creatinine 3.00 H, Estim Creat Clear Calc 20.27, Est GFR (MDRD) Af Amer 26 L, Est GFR (MDRD) Non-Af 22 L, BUN/Creatinine Ratio 8.7 L, Glucose 100, Calcium 8.4 L, Phosphorus 2.1 L, Magnesium 2.4, Total Bilirubin 0.70, AST 17, ALT 21, Alkaline Phosphatase 115, Total Protein 5.3 L, Albumin 2.4L, Globulin 2.9, Albumin/Globulin Ratio 0.8 L Rhythm Strip Rhythm Strip: Sinus Tach Rate: 125 Ectopy: None Physical Exam Narrative General: Awake and answering questions, appears more alert today HEENT: Atraumatic, normocephalic Eyes: Anicteric, normal conjunctiva, extraocular movements grossly intact Neck: Supple Respiratory: Clear to auscultation bilaterally, normal respiratory effort Cardiovascular: Regular rate and rhythm GI: Soft, slightly distended, diffusely tender but not rigid Extremities: 1+ bilateral lower extremity edema Musculoskeletal: Moving all extremities Neuro: No overt focal neurological deficits Skin: No rashes appreciated Psych: Cooperative Assessment & Plan Assessment/Plan (1) Abdominal pain: (2) BPH (benign prostatic hyperplasia): (3) Chronic kidney failure: QUALIFIERS: Chronic kidney disease stage: stage 5 Qualified Code(s): N18.5 - Chronic kidney disease, stage 5 (4) ESRD on peritoneal dialysis: (5) Essential hypertension: PLAN: Plan #Abdominal pain and concern for peritonitis in setting of ESRD on PD -Family to bring in PD supplies for PD to continue and also so PD sample can be obtained-discussed with patient and and they verbalized their understandingthat they would have to complete the peritoneal dialysis as we do not have thosecapabilities -Given pt not septic currently awaiting supplies to arrive to get sample for cx to start abx, cefepime and vanc -Does feel generally weak and is mildly tachycardic, given very small amount of fluid in ED, suspect this will improve with antibiotics -Blood cultures -C/s nephro -Await cx, supportive care -02/28: Peritoneal fluid with elevated white blood cell count and PMNs, concern for peritonitis, continue cefepime and vancomycin, monitoring cultures. Patientwith improvement in his tachycardia after initiation of antibiotics. Discussed with nephrology, patient having pain with peritoneal dialysis and was unable to complete this, will do HD today but needs transfer to a facility with those capabilities. [facility] accepted, pending transfer #End-stage renal disease on peritoneal dialysis -Patient's family bringing in his old supply and patient verbalized understanding multiple times that they would be responsible for his peritoneal dialysis while he was in the hospital as we do not yet have these capabilities -Daily weights, I's and O's -02/28: We will have HD today pending transfer to [facility] #Macrocytic anemia -Similar to previous, suspect due to chronic disease/kidney failure -Continue to monitor -02/28: Slightly down compared to yesterday however similar to previous and all cell lines slightly down #Thrombocytopenia -Platelets 128, were 120 several days ago -May be secondary to illness -Trend -Treat underlying cause which I suspect is infection related -02/28: Continue to monitor for improvement now the patient has had antibiotics initiated #Overactive bladder -Continue oxybutynin #GERD -Continue PPI #Hypertension/chronic heart failure with preserved ejection fraction -EF within normal limits in 2019 but had stage I diastolic dysfunction -Continue metoprolol -Daily weights, I's and O's -02/28: Continue to monitor BP, daily weights, I's and O's/fluid status #DVT ppx: SCDs Chey Bates MD Time spent in the patient's overall evaluation,decision-making process, review of diagnostic data, adjustment of management, discussion with other providers, nursing nursing and ancillary staff involved in patient's care documentation, 40minutes Charges/Coding Visit Charges Inpatient E&M: 03069 Subs Hosp L2 02/28/23 0943 <Electronically signed by Chey Bates MD> Cosigner Signature (if applicable): CC: ~ Signed [place] Work Phone: 1(546) 782-771510-13-2023 Consult note Author Chey Bates [place] February 28, 2023 8:50am Note Date/Time February 27, 2023 1 1:46am [facility] Medical Records Department [address] [place] [id number] Pharmacokinetic/Renal -Consult 02/27/23 1146 MR#: [id number] Acct: [id number] Name: FRANKLIN BURTON Rep #:[id number] : 1945 77 From: Jd Shields PCP: Dr. Matilde Noguera MD Status:ADM IN Location: [place] [address] Consult Antibiotic Management Pharmacy has been consulted to manage selected antiobiotic: Vancomycin Type of Intervention Type of Consult: New start Suspected Infection Suspected Infection: Other (INTRA-ABDOMINAL) Prior Doses of Antibiotics Prior Doses of Antibiotics Received/Current Regimen: Vancomycin 1500 mg IV x 1 loading dose on 02/27/23 @ 1132 Labs Labs: Sodium 134 mmol/L (136-145) L 02/27/23 04:26 Potassium 4.2 mmol/L (3.5-5.1) 02/27/23 04:26 Chloride 104 mmol/L (98-107) 02/27/23 04:26 Carbon Dioxide 27.0 mmol/L (21.0-32.0) 02/27/23 04:26 Anion Gap 3 (5-15) L 02/27/23 04:26 BUN 27 mg/dL (7-18) H 02/27/23 04:26 Creatinine 3.18 mg/dL (0.70-1.30) H 02/27/23 04:26 Est GFR (MDRD) Af Amer 25 mL/min (>60) L 02/27/23 04:26 Est GFR (MDRD) Non-Af 20 mL/min (>60) L 02/27/23 04:26 BUN/Creatinine Ratio 8.5 RATIO (10-20) L 02/27/23 04:26 Glucose 140 mg/dL (74-106) H 02/27/23 04:26 Dosing Weight Weight used for dosin kg Goal Trough Goal Trough: 15-20 mcg/mL Pharmacy Plan for Drug Dosing Pharmacy Plan for Drug Dosing: Vancomycin 1500 mg IV x 1 given on 02/27/23. Patient is on peritoneal dialysis, will only give loading dose and get a random level on 03/01 in the AM. Pharmacy Service will continue to monitor and adjust dosing as required. Follow-Up Labs Follow-Up Labs: Trough: Vancomycin (random) Date/Time Labs Ordered Labs to be done on [date and time ordered]: 03/01/23 @ 0600 02/27/23 1148 <Electronically signed by Jd martínez> Date _ Jd Shields 02/28/23 0850 <Electronically signed by Chey Bates MD> Cosigner Signature (if applicable): Date Chey Bates MD CC: ~ Signed [place] Work Phone: 1(263) 617-630910-12-2023 Consult note Author Jazmyne Smith [place] February 27, 2023 5:11pm Note Date/Time February 27, 2023 1 0:39am [facility] Medical Records Department [address] [place] [address] Consultation - Nephrology 02/27/23 1026 MR#: [id number] Acct: [id number] Name: FRANKLIN BURTON Rep #:[id number] : 1945 77 From: Judith GAINES PCP: Dr. Matilde Noguera MD Status:ADM IN Location: [place] [address] Documented by User: EDER Gonzalez 02/27/23 10:42 Assessment & Plan Assessment/Plan (1) Abdominal pain: (2) ESRD on peritoneal dialysis: PLAN: Plan This is a 77-year-old male with past medical history significant for end-stage renal disease who is on peritoneal dialysis who was admitted to the hospital after presenting with complaints of abdominal pain, concern for peritonitis. Patient last had his peritoneal dialysis on Friday. It was attempted to obtainPD culture and cell count today however there was small amount of fluid in abdomen so not sure if enough fluid obtained for cultures. Patient and family aware they are to bring in PD cycler and solutions. Patient and family will attempt to dwell 2 L PD solution today in and out and attempt to obtain PD cell count and culture again. Patient is afebrile, white count is normal. We will probably plan for peritoneal dialysis tomorrow however if unable to do peritoneal dialysis, patient does have functioning AV fistula for hemodialysis. There is no acute indication for PARENT [employer]NER today. Volume status, potassium and acid-base acceptable. CT scan abdomen reviewed, CXR clear. Patient has received IV antibiotics, vancomycin ceftriaxone. Cefepime ordered. Patient is constipated therefore we will give lactulose until good bm. Further orders forthcoming as hospitalization evolves, thank you for allowing us to participate in the care ofMr. Burton. HPI Consult Data Date of Consult: 02/27/23 HPI Narrative HPI Narrative: FRANKLIN BURTON, is a 77 M with past medical history significant for ESRD who tessa peritoneal dialysis support who presented to the emergency room with complaints of abdominal pain and generalized weakness. Patient was admitted forfurther evaluation and treatment; concern for peritonitis. Patient is followed by Dr. Pacheco. Patient just recently transitioned from in center hemodialysis via left upper arm AV fistula to peritoneal dialysis support. Patient reports that he had been using cycler at night for peritoneal dialysis however recently had issues with his cycler machine therefore transition to manual peritoneal exchanges. Patient reports his last peritoneal dialysis was on Friday. Patient denies any recent fevers or chills at home. Patient reports peritoneal dialysis solution has been clear. Denies any shortness of breath. Denies noting any drainage from around PD catheter insertion site. Patient does reportthat last week he had loose bowel movements and after taking something for diarrhea patient has not had a bowel movement since at least Friday. [facility] Medical History Abnormal stress echo Anemia Arthritis Back pain BPH (benign prostatic hyperplasia) Cardiology follow-up encounter Chest pain Chronic kidney disease, stage 3 (moderate) Chronic systolic heart failure Claudication Dialysis patient Essential hypertension Former smoker Gastric reflux GERD (gastroesophageal reflux disease) Hard of hearing History of CHF (congestive heart failure) History of echocardiogram History of edema History of renal disease History of tobacco use Irregular heart beat Neuropathy Normal stress echocardiogram Obstructive sleep apnea Prediabetes Prostate disease Rheumatoid arthritis Shortness of breath Wears dentures Wears glasses Wears hearing aid Zach's granulomatosis Home Medications omeprazole 40 mg capsule,delayed release 40 mg PO DAILY stomach 11/04/18 [History Last Taken 01/18/22] gabapentin 100 mg tablet 200 mg PO QHS 08/29/22 [History Last Taken Unknown] handicap placard #1 ea 08/29/22 [Rx Last Taken Unknown] oxybutynin chloride 10 mg tablet,extended release 24 hr 10 mg PO DAILY 11/28/22 [History Last Taken Unknown] metoprolol tartrate 25 mg tablet 25 mg PO DAILY BP 01/14/23 [History Last Taken Unknown] oxycodone-acetaminophen 5 mg-325 mg tablet (Percocet) 1 tab PO Q8H PRN pain 30 days #90 tabs 02/17/23 [Rx Last Taken Unknown] Allergy/AdvReac Type Severity Reaction Status Date / Time aspirin AdvReac Severe cannot Verified 02/25/23 17:56 take d/t Zach's Vasculitis Family History Mother CAD (coronary artery disease) Congestive heart failure Father Prostate cancer Lung cancer Brother Colon cancer Sister Colon cancer Grandmother Diabetes Surgical History AV fistula Cataract extraction status H/O arthroscopy of left knee (1988) History of colonoscopy History of endoscopy (01/02/16) History of left heart catheterization (11/12/18) History of prostate biopsy (01/11/14) History of total right hip arthroplasty (02/05/16) Hx of bilateral cataract extraction S/P arthroscopic surgery of left knee (1989) S/P TURP Status post biopsy of kidney (12/2013) Social History household members: spouse housing: house 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 PD catheter intact. Removed dressing no redness or drainage noted around PD catheter/ insertion site No edema Left upper arm AV fistula positive thrill and bruit Lab / Micro Data 02/27/23 04:26 02/27/23 04:26 Labs: Laboratory Results - last 24 hr 02/27/23 04:26: WBC 6.9, RBC 4.04 L, Hgb 12.6 L, Hct 38.7 L, MCV 95.8 H, MCH 31.2, MCHC 32.6, RDW Std Deviation 48.0 H, RDW Coeff of Misael 13.5, Plt Count 128 L, MPV 9.5, Immature Gran % (Auto) 0.400, Neut % (Auto) 89.2 H, Lymph % (Auto) 4.9 L, Chippewa % (Auto) 4.6, Eos % (Auto) 0.6, Baso % (Auto) 0.3, Absolute Neuts (auto) 6.1, Absolute Lymphs (auto) 0.34 L, Nucleated RBC % 0, Differential Comment SCANNED, PT 14.2, INR 1.1, APTT 31.2, Sodium 134 L, Potassium 4.2, Chloride 104, Carbon Dioxide 27.0, Anion Gap 3 L, BUN 27 H, Creatinine 3.18 H, Estim Creat Clear Calc 18.48, Est GFR (MDRD) Af Amer 25 L, Est GFR (MDRD) Non-Af20 L, BUN/Creatinine Ratio 8.5 L, Glucose 140 H, Calcium 8.8, Total Bilirubin 0.70, AST 19, ALT 27, Alkaline Phosphatase 136 H, Troponin I High Sens 18, TotalProtein 6.1 L, Albumin 3.0 L, Globulin 3.1, Albumin/Globulin Ratio 1.0, Lipase 14 02/27/23 04:44: Urine Color Yellow, Urine Clarity Clear, Urine pH 7.0, Ur Specific [place] 1.005, Urine Protein 30 H, Urine Glucose (UA) Normal, Urine Ketones Negative, Urine Occult Blood 25 H, Urine Nitrite Negative, Urine Bilirubin Negative, Urine Urobilinogen Normal, Ur Leukocyte Esterase 500 H, Urine RBC 0-5 SEEN, Urine WBC 25-50 SEEN, Ur Squamous Epith Cells 0 SEEN, Urine Bacteria 1+, Urine Mucus 0 SEEN 02/27/23 04:53: Lactic Acid 0.9 Rhythm Strip Rhythm Strip: Sinus Tach Rate: 125 Ectopy: None Radiology Impression Chest X-Ray 02/27/23 04:26 IMPRESSION: No significant interval change. No radiographic evidence of acute cardiopulmonary disease. Electronically Signed: Darien Cole MD at 5:28 EDT , Brain CT 02/27/23 04:29 IMPRESSION: 1. Mild age-related atrophy. 2. Minimal maxillary sinus mucosal disease. 3. No hemorrhage or other acute intracranial abnormality. Electronically Signed: Darien Cole MD at 5:32 EDT , Documented by User: Dr. Jazmyne Smith MD 02/27/23 17:11 Assessment & Plan Assessment/Plan (1) Abdominal pain: (2) ESRD on peritoneal dialysis: PLAN: Plan This is a 77-year-old male with past medical history significant for end-stage renal disease who is on peritoneal dialysis who was admitted to the hospital after presenting with complaints of abdominal pain, concern for peritonitis. Patient last had his peritoneal dialysis on Friday. It was attempted to obtain PD culture and cell count today however there was small amount of fluid in abdomen so not sure if enough fluid obtained for cultures. Patient and family aware they are to bring in PD cycler and solutions. Patient and family will attempt to dwell 2 L PD solution today in and out and attempt to obtain PD cell count and culture again. Patient is afebrile, white count is normal. We will probably plan for peritoneal dialysis tomorrow however if unable to do peritoneal dialysis, patient does have functioning AV fistula for hemodialysis. There is no acute indication for PARENT PARTNER today. Volume status, potassium and acid-base acceptable. CT scan abdomen reviewed, CXR clear. Patient has received IV antibiotics, vancomycin ceftriaxone. Cefepime ordered. Patient is constipated therefore we will give lactulose until good bm. Further orders forthcoming as hospitalization evolves, thank you for allowing us to participate in the care ofMr. Burton. 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 recently started PD. Presented with abdomen pain. PD fluid analysis with WBC 1100 consistent with peritonitis. cultures pending. continue IV vanco and ceftaz for now. We may just do HD while inpatient. called and spoke to PD nurse. he does have antibiotic kits at home. They can train on IP abx at the time of dc. HPI Consult Data Date of Consult: 02/27/23 [facility] Medical History Abnormal stress echo Anemia Arthritis Back pain BPH (benign prostatic hyperplasia) Cardiology follow-up encounter Chest pain Chronic kidney disease, stage 3 (moderate) Chronic systolic heart failure Claudication Dialysis patient Essential hypertension Former smoker Gastric reflux GERD (gastroesophageal reflux disease) Hard of hearing History of CHF (congestive heart failure) History of echocardiogram History of edema History of renal disease History of tobacco use Irregular heart beat Neuropathy Normal stress echocardiogram Obstructive sleep apnea Prediabetes Prostate disease Rheumatoid arthritis Shortness of breath Wears dentures Wears glasses Wears hearing aid Zach's granulomatosis Home Medications omeprazole 40 mg capsule,delayed release 40 mg PO DAILY stomach 11/04/18 [History Last Taken 01/18/22] gabapentin 100 mg tablet 200 mg PO QHS 08/29/22 [History Last Taken Unknown] handicap placard #1 ea 08/29/22 [Rx Last Taken Unknown] oxybutynin chloride 10 mg tablet,extended release 24 hr 10 mg PO DAILY 11/28/22 [History Last Taken Unknown] metoprolol tartrate 25 mg tablet 25 mg PO DAILY BP 01/14/23 [History Last Taken Unknown] oxycodone-acetaminophen 5 mg-325 mg tablet (Percocet) 1 tab PO Q8H PRN pain 30 days #90 tabs 02/17/23 [Rx Last Taken Unknown] Allergy/AdvReac Type Severity Reaction Status Date / Time aspirin AdvReac Severe cannot Verified 02/25/23 17:56 take d/t Zach's Vasculitis Family History Mother CAD (coronary artery disease) Congestive heart failure Father Prostate cancer Lung cancer Brother Colon cancer Sister Colon cancer Grandmother Diabetes Surgical History AV fistula Cataract extraction status H/O arthroscopy of left knee (1988) History of colonoscopy History of endoscopy (01/02/16) History of left heart catheterization (11/12/18) History of prostate biopsy (01/11/14) History of total right hip arthroplasty (09/19/16) Hx of bilateral cataract extraction S/P arthroscopic surgery of left knee (1989) S/P TURP Status post biopsy of kidney (12/2013) Social History household members: spouse housing: house 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 Matilde Noguera MD; Dr. Jazmyne Smith MD~ Signed [place] Work Phone: 1(952) 758-707610-12-2023 History and physical note Author Chey Bates [place] February 27, 2023 8:18am Note Date/Time February 27, 2023 8 :05am [facility] Medical Records Department [address] [place] [address] H&P Exam - Hospitalist 02/27/23 0802 MR#: [id number] Acct: [id number] Name: FRANKLIN BURTON Rep #:[id number] : 1945 77 From: Chey Bates MD PCP: Dr. Matilde Noguera MD Status:ADM IN Location: [place] [address] HPI - General General Date of Admission: 02/27/23 Date of Service: 02/27/23 Chief Complaint: Abd pain, gen weakness HPI Narrative FRANKLIN BURTON, is a 77-year-old male with end-stage renal disease on peritoneal dialysis since July and hemodialysis before, BPH, heart failure withpreserved ejection fraction who presented to [place] 02/27/2023 after he woke up on the floor after a fall last night. His main complaint was abdominal pain and he endorsed that last night at 7 PM he infused his peritoneal dialysis fluid when he began to have the pain, there dialysis nurse recommended removing fluid and it helped some but he still had the pain and upon further discussion its been present off and on for 3 to [address] Pacheco with nephrology on outpatient basis. In ED patient slightly confused and temp 99.7 and patient tachycardic. Despite white blood cell count being 6.9 he has a left shift and there is concern for peritonitis. Our nephrology team contacted as his home health administrator does not come to our hospital and it was recommended giving ceftaz (nonformulary so we will give Rocephin) andVanco after getting a peritoneal fluid sample. Hospitalist contacted for admission. Patient seen with at bedside, he does endorse the abdominal pain off and on for several days that is worse anytime he puts and or takes out peritoneal fluid, also hurts when he moves and touches his abdomen. Feels generally weak and tired and has had a dull headache. Reports chronically he getssome intermittent tingling in his fingers though that is not necessarily new, denies diarrhea, does make urine. Denies any other acute complaints. Patient and do endorse that family is bringing in peritoneal dialysis supplies and that patient does this at home with his 's help and they verbalized understanding that they will have to do it while he is inpatient here as we do not have the capabilities. This was confirmed multiple times that they understood this requirement [facility] Medical History Abnormal stress echo Anemia Arthritis Back pain BPH (benign prostatic hyperplasia) Cardiology follow-up encounter Chest pain Chronic kidney disease, stage 3 (moderate) Chronic systolic heart failure Claudication Dialysis patient Essential hypertension Former smoker Gastric reflux GERD (gastroesophageal reflux disease) Hard of hearing History of CHF (congestive heart failure) History of echocardiogram History of edema History of renal disease History of tobacco use Irregular heart beat Neuropathy Normal stress echocardiogram Obstructive sleep apnea Prediabetes Prostate disease Rheumatoid arthritis Shortness of breath Wears dentures Wears glasses Wears hearing aid Zach's granulomatosis Home Medications omeprazole 40 mg capsule,delayed release 40 mg PO DAILY stomach 11/04/18 [History Last Taken 01/18/22] gabapentin 100 mg tablet 200 mg PO QHS 08/29/22 [History Last Taken Unknown] handicap placard #1 ea 08/29/22 [Rx Last Taken Unknown] oxybutynin chloride 10 mg tablet,extended release 24 hr 10 mg PO DAILY 11/28/22 [History Last Taken Unknown] metoprolol tartrate 25 mg tablet 25 mg PO DAILY BP 01/14/23 [History Last Taken Unknown] oxycodone-acetaminophen 5 mg-325 mg tablet (Percocet) 1 tab PO Q8H PRN pain 30 days #90 tabs 02/17/23 [Rx Last Taken Unknown] Allergy/AdvReac Type Severity Reaction Status Date / Time aspirin AdvReac Severe cannot Verified 02/25/23 17:56 take d/t Zach's Vasculitis Family History Mother CAD (coronary artery disease) Congestive heart failure Father Prostate cancer Lung cancer Brother Colon cancer Sister Colon cancer Grandmother Diabetes Surgical History AV fistula Cataract extraction status H/O arthroscopy of left knee (1988) History of colonoscopy History of endoscopy (01/02/16) History of left heart catheterization (11/12/18) History of prostate biopsy (01/11/14) History of total right hip arthroplasty (02/05/16) Hx of bilateral cataract extraction S/P arthroscopic surgery of left knee (1989) S/P TURP Status post biopsy of kidney (12/2013) Social History household members: spouse housing: house 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 Status: Former smoker quit date: 07/26/81 pack-years: 19 Electronic Cigarette Use: not used alcohol intake: never substance use type: does not use what type of physical activity do you participate in: none seatbelt use: always do you feel safe at home: Yes ROS ROS Narrative General: Denies fever/chills at home HENT: Dull headache, denies stuffy nose, denies sore throat EYES: Denies changes in vision Resp: Denies cough, denies shortness of breath Cardiac: Denies chest pain GI: Generalized abdominal pain, denies changes in bowel, denies nausea/vomiting : Denies changes in urination Extremity: Some chronic ankle swelling MSK: Generalized weakness Neuro: Occasional tingling in hands Heme: Denies any bleeding or bruising Skin: Denies rashes Psychiatric: No complaints voiced Vital Signs Vital Signs Vital Signs: 02/27/23 04:09 02/27/23 04:47 02/27/23 06:22 Temperature 99.7 F H Temperature Source Temporal Pulse Rate 126 H 118 H Respiratory Rate 18 18 Blood Pressure 189/101 H 157/92 H Blood Pressure Mean 130 113 Pulse Ox 96 Oxygen Delivery Method Room Air Room Air 02/27/23 07:40 Temperature 98.7 F Temperature Source Pulse Rate 114 H Respiratory Rate 19 H Blood Pressure 137/86 H Blood Pressure Mean 103 Pulse Ox 97 Oxygen Delivery Method Weight Weight: 96.7 kg Body Mass Index (BMI) 33.3 Physical Exam Narrative General: Awake and answering questions, does appear tired HEENT: Atraumatic, normocephalic Eyes: Anicteric, normal conjunctiva, extraocular movements grossly intact Neck: Supple Respiratory: Clear to auscultation bilaterally, normal respiratory effort Cardiovascular: Regular rate and rhythm GI: Soft, slightly distended, diffusely tender but not overtly rigid Extremities: 1+ bilateral lower extremity edema Musculoskeletal: Moving all extremities Neuro: No overt focal neurological deficits Skin: No rashes appreciated Psych: Cooperative Results Lab / Micro Data 02/27/23 04:26 02/27/23 04:26 Labs: Laboratory Results - last 24 hr 02/27/23 04:26: WBC 6.9, RBC 4.04 L, Hgb 12.6 L, Hct 38.7 L, MCV 95.8 H, MCH 31.2, MCHC 32.6, RDW Std Deviation 48.0 H, RDW Coeff of Misael 13.5, Plt Count 128 L, MPV 9.5, Immature Gran % (Auto) 0.400, Neut % (Auto) 89.2 H, Lymph % (Auto) 4.9 L, [place] % (Auto) 4.6, Eos % (Auto) 0.6, Baso % (Auto) 0.3, Absolute Neuts (auto) 6.1, Absolute Lymphs (auto) 0.34 L, Nucleated RBC % 0, Differential Comment SCANNED, PT 14.2, INR 1.1, APTT 31.2, Sodium 134 L, Potassium 4.2, Chloride 104, Carbon Dioxide 27.0, Anion Gap 3 L, BUN 27 H, Creatinine 3.18 H, Estim Creat Clear Calc 18.48, Est GFR (MDRD) Af Amer 25 L, Est GFR (MDRD) Non-Af20 L, BUN/Creatinine Ratio 8.5 L, Glucose 140 H, Calcium 8.8, Total Bilirubin 0.70, AST 19, ALT 27, Alkaline Phosphatase 136 H, Troponin I High Sens 18, TotalProtein 6.1 L, Albumin 3.0 L, Globulin 3.1, Albumin/Globulin Ratio 1.0, Lipase 14 02/27/23 04:44: Urine Color Yellow, Urine Clarity Clear, Urine pH 7.0, Ur Specific [place] 1.005, Urine Protein 30 H, Urine Glucose (UA) Normal, Urine Ketones Negative, Urine Occult Blood 25 H, Urine Nitrite Negative, Urine Bilirubin Negative, Urine Urobilinogen Normal, Ur Leukocyte Esterase 500 H, Urine RBC 0-5 SEEN, Urine WBC 25-50 SEEN, Ur Squamous Epith Cells 0 SEEN, Urine Bacteria 1+, Urine Mucus 0 SEEN 02/27/23 04:53: Lactic Acid 0.9 Rhythm Strip Rhythm Strip: Sinus Tach Rate: 125 Ectopy: None Radiology Impression Chest X-Ray 02/27/23 04:26 IMPRESSION: No significant interval change. No radiographic evidence of acute cardiopulmonary disease. Electronically Signed: Darien Cole MD at 5:28 EDT Reading Location ID and State: [facility] / [place] Tel , Service support , Brain CT 02/27/23 04:29 IMPRESSION: 1. Mild age-related atrophy. 2. Minimal maxillary sinus mucosal disease. 3. No hemorrhage or other acute intracranial abnormality. Electronically Signed: Darien Cole MD at 5:32 EDT , Assessment & Plan Assessment/Plan (1) Abdominal pain: (2) BPH (benign prostatic hyperplasia): (3) Chronic kidney failure: QUALIFIERS: Chronic kidney disease stage: stage 5 Qualified Code(s): N18.5 - Chronic kidney disease, stage 5 (4) ESRD on peritoneal dialysis: (5) Essential hypertension: PLAN: Plan #Abdominal pain and concern for peritonitis in setting of ESRD on PD -Family to bring in PD supplies for PD to continue and also so PD sample can be obtained-discussed with patient and and they verbalized their understandingthat they would have to complete the peritoneal dialysis as we do not have thosecapabilities -Given pt not septic currently awaiting supplies to arrive to get sample for cx to start abx, cefepime and vanc -Does feel generally weak and is mildly tachycardic, given very small amount of fluid in ED, suspect this will improve with antibiotics -Blood cultures -C/s nephro -Await cx, supportive care #End-stage renal disease on peritoneal dialysis -Patient's family bringing in his old supply and patient verbalized understanding multiple times that they would be responsible for his peritoneal dialysis while he was in the hospital as we do not yet have these capabilities -Daily weights, I's and O's #Macrocytic anemia -Similar to previous, suspect due to chronic disease/kidney failure -Continue to monitor #Thrombocytopenia -Platelets 128, were 120 several days ago -May be secondary to illness -Trend -Treat underlying cause which I suspect is infection related #Overactive bladder -Continue oxybutynin #GERD -Continue PPI #Hypertension/chronic heart failure with preserved ejection fraction -EF within normal limits in 2019 but had stage I diastolic dysfunction -Continue metoprolol -Daily weights, I's and O's #DVT ppx: Heparin subcu Chey Bates MD Time spent in the patient's overall evaluation,decision-making process, review of diagnostic data, adjustment of management, discussion with other providers, nursing nursing and ancillary staff involved in patient's care documentation, 60minutes Charges/Coding Visit Charges Inpatient E&M: 26720 Init Hosp L2 02/27/23 0818 <Electronically signed by Chey Bates MD> Cosigner Signature (if applicable): CC: Dr. Matilde Noguera MD; Dr. Chey Bates MD~ Signed [place] Work Phone: 1(865) 331-713410-12-2023 Discharge summary Author Tha Leblanc [place] February 27, 2023 7:30am Note Date/Time February 27, 2023 4 :37am [facility] Medical Records Department [address] [place] [address] Emergency Department Summary 02/27/23 MR#: [id number] Acct: [id number] Name: FRANKLIN BURTON Rep #:[id number] : 1945 77 From: Tha Leblanc MD PCP: Dr. Matilde Noguera MD Status:REG ER Location: ED HPI History of Present Illness Chief Complaint: Syncope Informant: patient and family Narrative Narrative: Patient presenting after waking up on the floor after apparently falling out of bed in the middle of the night. He denies having any pain or injury. Family isconcerned that he is a little disoriented from his normal and complaining of abdominal pain which is their main concern. They present at 4 AM. Patient states he started having abdominal pain last night at 7 PM when he injected his peritoneal dialysis fluid. They called the kidney nurse who advised them to withdraw all the fluid, he states that the pain improved then but has not gone away. It is still there now but not as bad. Apparently this has been off-and-on for the past 3 or [address] Pacheco for nephrology. Has been on peritoneal dialysis since July, was doing hemodialysis before that. At 1 point patient states that the peritoneal dialysis fluid, when he withdraws it, looks similar to usual. At another point, he states it was cloudy. The family does not know for sure. Patient denies any other symptoms recently. [facility] Medical History Abnormal stress echo Anemia Arthritis Back pain BPH (benign prostatic hyperplasia) Cardiology follow-up encounter Chest pain Chronic kidney disease, stage 3 (moderate) Chronic systolic heart failure Claudication Dialysis patient Essential hypertension Former smoker Gastric reflux GERD (gastroesophageal reflux disease) Hard of hearing History of CHF (congestive heart failure) History of echocardiogram History of edema History of renal disease History of tobacco use Irregular heart beat Neuropathy Normal stress echocardiogram Obstructive sleep apnea Prediabetes Prostate disease Rheumatoid arthritis Shortness of breath Wears dentures Wears glasses Wears hearing aid Zach's granulomatosis Home Medications omeprazole 40 mg capsule,delayed release 40 mg PO DAILY stomach 11/04/18 [History Last Taken 01/18/22] gabapentin 100 mg tablet 200 mg PO QHS 08/29/22 [History Last Taken Unknown] handicap placard #1 ea 08/29/22 [Rx Last Taken Unknown] oxybutynin chloride 10 mg tablet,extended release 24 hr 10 mg PO DAILY 11/28/22 [History Last Taken Unknown] metoprolol tartrate 25 mg tablet 25 mg PO DAILY BP 01/14/23 [History Last Taken Unknown] oxycodone-acetaminophen 5 mg-325 mg tablet (Percocet) 1 tab PO Q8H PRN pain 30 days #90 tabs 02/17/23 [Rx Last Taken Unknown] Allergy/AdvReac Type Severity Reaction Status Date / Time aspirin AdvReac Severe cannot Verified 02/25/23 17:56 take d/t Zach's Vasculitis Family History Mother CAD (coronary artery disease) Congestive heart failure Father Prostate cancer Lung cancer Brother Colon cancer Sister Colon cancer Grandmother Diabetes Surgical History AV fistula Cataract extraction status H/O arthroscopy of left knee (1988) History of colonoscopy History of endoscopy (01/02/16) History of left heart catheterization (11/12/18) History of prostate biopsy (01/11/14) History of total right hip arthroplasty (02/05/16) Hx of bilateral cataract extraction S/P arthroscopic surgery of left knee (1989) S/P TURP Status post biopsy of kidney (12/2013) Social History household members: spouse housing: house 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 Status: Former smoker quit date: 07/26/81 pack-years: 19 Electronic Cigarette Use: not used alcohol intake: never substance use type: does not use what type of physical activity do you participate in: none seatbelt use: always do you feel safe at home: Yes ROS ROS ED Constitutional Constitutional ED: Reports malaise and weakness; Denies chills or fever(s) Eyes Eyes: Denies change in vision or diplopia ENT ENT ED: Denies rhinorrhea or sore throat Cardiovascular Cardiovascular: Denies chest pain or palpitations Respiratory/Chest Respiratory/Chest: Denies cough or dyspnea Gastrointestinal Gastrointestinal: Reports abdominal pain; Denies melena, nausea or vomiting Genitourinary Genitourinary ED: Denies dysuria or hematuria Musculoskeletal Musculoskeletal: Denies back pain or neck pain Integumentary Denies abscess or rash Neurologic Neurologic: Reports as per HPI and confusion; Denies focal weakness, headache(s), paresthesias, seizure-like activity or syncope Psychiatric Psychiatric: Denies depression or suicidal thoughts EXAM Physical Exam Const Vital Signs: 02/27/23 04:09 02/27/23 04:47 02/27/23 06:22 Temperature 99.7 F H Temperature Source Temporal Pulse Rate 126 H 118 H Respiratory Rate 18 18 Blood Pressure 189/101 H 157/92 H Blood Pressure Mean 130 113 Pulse Ox 96 Oxygen Delivery Method Room Air Room Air Positive well nourished, well developed and obese General Appearance ED: well developed and NAD Nutritional Appearance: obese HEENT Reports moist mucous membranes normocephalic and atraumatic Eyes PERRL and EOMs intact bilaterally Neck full ROM and supple Resp normal respiratory effort and clear to auscultation bilaterally Cardio regular rate, regular rhythm and no murmurs Rate: tachycardic GI GI Narrative: Tender throughout upper abdomen, with some involuntary guarding and mild reboundtenderness throughout although nontender lower abdomen except for the right lower quadrant where he is just mildly tender. Peritoneal dialysis tubing site is benign. There is no fluid within the tubing. Inspection: abdominal distention Auscultation: normoactive bowel sounds Palpation: soft Back/Spine no CVA tenderness General Back: other FROM Extremity normal to inspection General Extremety ED: Negative for edema, pulses abnormal or tenderness General Extremity: Negative for edema or pulses abnormal Neuro CN's II-XII intact bilaterally and no sensory deficits noted Sensorium / Orientation: awake, alert and orientation impaired Motor Exam: strength 5/5 throughout Psych mental status grossly normal Skin no rashes or lesions noted and no wounds MDM MDM MDM Narrative Medical decision making narrative: Has tachycardia, low-grade fever, some peritoneal signs, and a little disoriented after a fall out of bed. Wide differential, however I reviewed the EMR and the patient was here 2 days ago, which was not mentioned by the family but I reviewed that visit. He had a work-up including a CT of the abdomen/pelvis that showed chronic findings without anything acute requiring treatment. Clinically I am most concerned about peritonitis given the history and exam and now low-grade fever 99.7 and patient is becoming somewhat encephalopathic. His white blood count is only 6.9 but he does have a predilection for neutrophils. His chronic kidney disease is noted, his electrolytes are stable, CT of the head shows no acute explanation for his disorientation, my interpretation of the CT agrees with that of the radiologist. Chest x-ray 1 view shows no acute infiltrates on my interpretation, of which radiology is in agreement. His lactic acid is within normal limits, his vital signs of remained stable he is hypertensive but not emergently so, his tachycardia has improved with some IV fluids and Tylenol. I discussed with his home health administrator Dr. Pacheco, who does not come to this hospital which I did not realize, he states usually the [facility] sees his patient so I discussed with Dr. Smith who was on-call for them. He agrees with admitting the patient, and recommends giving ceftaz and vancomycin immediately after we obtain a sample of his peritoneal fluid from his dialysis catheter empirically without waiting for results (we do not have ceftazidime at this hospital, so we will give a different third-generation cephalosporin, ceftriaxone instead). At the current time at this hospital, we do not have peritoneal dialysis services, and we do not have the necessary equipment to perform peritoneal dialysis, however the patient has all of this necessary equipment at home. We require this in order to even obtain a sample from his catheter, because he has the sterile caps and we do not have those at this hospital. Family does want him tostay here, and they went home to get the equipment so that we can obtain a sample and start the appropriate antibiotics. We did discuss doing a paracentesis instead, although certainly this would in my judgment put the patient at increased risk for injury and complications of the procedure, and I think these risks outweigh the potential benefits of getting a sample sooner because the patient is not septic and is doing relatively well clinically I think he can wait 1-2 hours for the patient's family to go home and get the equipment at return. Will discuss with hospitalist for admission. History & Record Review Additional record(s) reviewed:: Prior ED visit Lab Data Attestation: I reviewed the patient's lab results. Labs: Laboratory Results - last 24 hr 02/27/23 02/27/23 02/27/23 04:26 04:44 04:53 WBC 6.9 RBC 4.04 L Hgb 12.6 L Hct 38.7 L MCV 95.8 H MCH 31.2 MCHC 32.6 RDW Std Deviation 48.0 H RDW Coeff of Misael 13.5 Plt Count 128 L MPV 9.5 Immature Gran % (Auto) 0.400 Neut % (Auto) 89.2 H Lymph % (Auto) 4.9 L [place]pewa % (Auto) 4.6 Eos % (Auto) 0.6 Baso % (Auto) 0.3 Absolute Neuts (auto) 6.1 Absolute Lymphs (auto) 0.34 L Nucleated RBC % 0 Differential Comment SCANNED PT 14.2 INR 1.1 APTT 31.2 Sodium 134 L Potassium 4.2 Chloride 104 Carbon Dioxide 27.0 Anion Gap 3 L BUN 27 H Creatinine 3.18 H Estim Creat Clear Calc 18.48 Est GFR (MDRD) Af Amer 25 L Est GFR (MDRD) Non-Af 20 L BUN/Creatinine Ratio 8.5 L Glucose 140 H Lactic Acid 0.9 Calcium 8.8 Total Bilirubin 0.70 AST 19 ALT 27 Alkaline Phosphatase 136 H Troponin I High Sens 18 Total Protein 6.1 L Albumin 3.0 L Globulin 3.1 Albumin/Globulin Ratio 1.0 Lipase 14 Urine Color Yellow Urine Clarity Clear Urine pH 7.0 Ur Specific [place] 1.005 Urine Protein 30 H Urine Glucose (UA) Normal Urine Ketones Negative Urine Occult Blood 25 H Urine Nitrite Negative Urine Bilirubin Negative Urine Urobilinogen Normal Ur Leukocyte Esterase 500 H Urine RBC 0-5 SEEN Urine WBC 25-50 SEEN Ur Squamous Epith Cells 0 SEEN Urine Bacteria 1+ Urine Mucus 0 SEEN Radiography Diagnostic Testing: Clinical Impression(s) from Imaging Studies Chest X-Ray 02/27/23 04:26 IMPRESSION: No significant interval change. No radiographic evidence of acute cardiopulmonary disease. Electronically Signed: Darien Cole MD at 5:28 EDT , Brain CT 02/27/23 04:29 IMPRESSION: 1. Mild age-related atrophy. 2. Minimal maxillary sinus mucosal disease. 3. No hemorrhage or other acute intracranial abnormality. Electronically Signed: Darien Cole MD at 5:32 EDT , Rhythm Strip Rhythm Strip: Sinus Tach Rate: 125 Ectopy: None EKG Initial EKG: Attestation: I personally reviewed and interpreted this EKG as follows: Interpretation: No Acute Injury Pattern and Sinus Tachycardia Management Discussion w/another healthcare provider: Hospitalist and Buffer Operator (nephrologySarah Anne) Discharge Plan Triage Chief Complaint: Syncope ED Provider: Tha Leblanc Dx/Rx/DC Orders Clinical Impression: ESRD on peritoneal dialysis, Acute encephalopathy, Acute peritonitis Prescriptions: No Action omeprazole 40 mg capsule,delayed release(DR/EC) 40 mg PO DAILY gabapentin 100 mg tablet 200 mg PO QHS (DME) handicap placard See Rx Instructions .ROUTE .MEDSUPPLY Qty: 1 0RF Rx Instructions: Length of time: 5 years Diagnosis: Impaired physical mobility z74.09 oxybutynin chloride 10 mg tablet extended release 24hr 10 mg PO DAILY metoprolol tartrate 25 mg tablet 25 mg PO DAILY Patient Comments: Heart medication oxycodone-acetaminophen [Percocet] 5-325 mg tablet 1 tab PO Q8H PRN (Reason: pain) 30 Days Qty: 90 0RF Primary Care Provider: Matilde Noguera Referrals: Matilde Noguera MD [Primary Care Provider] - What to do if you have Problems For any increased pain, shortness of breath, bleeding, nausea or vomiting, chestpain, or any unexpected problems, contact your Primary Care Provider. Call [facility] ([phone]) or report to the closest Emergency Room. Call 911 if necessary. 02/27/23 0730 <Electronically signed by Tha Leblanc MD> Cosigner Signature (if applicable): CC: Dr. Matilde Noguera MD ~ Signed [place] Work Phone: 1(687) 281-204810-12-2023 Discharge summary Author Tha Leblanc [place] February 27, 2023 7:30am Note Date/Time February 27, 2023 4 :37am [facility] Medical Records Department [address] [place] [address] Emergency Department Summary 02/27/23 MR#: [id number] Acct: [id number] Name: FRANKLIN BURTON Rep #:[id number] : 1945 77 From: Tha Leblanc MD PCP: Dr. Matilde Noguera MD Status:REG ER Location: ED HPI History of Present Illness Chief Complaint: Syncope Informant: patient and family Narrative Narrative: Patient presenting after waking up on the floor after apparently falling out of bed in the middle of the night. He denies having any pain or injury. Family isconcerned that he is a little disoriented from his normal and complaining of abdominal pain which is their main concern. They present at 4 AM. Patient states he started having abdominal pain last night at 7 PM when he injected his peritoneal dialysis fluid. They called the kidney nurse who advised them to withdraw all the fluid, he states that the pain improved then but has not gone away. It is still there now but not as bad. Apparently this has been off-and-on for the past 3 or [address] Pacheco for nephrology. Has been on peritoneal dialysis since July, was doing hemodialysis before that. At 1 point patient states that the peritoneal dialysis fluid, when he withdraws it, looks similar to usual. At another point, he states it was cloudy. The family does not know for sure. Patient denies any other symptoms recently. [facility] Medical History Abnormal stress echo Anemia Arthritis Back pain BPH (benign prostatic hyperplasia) Cardiology follow-up encounter Chest pain Chronic kidney disease, stage 3 (moderate) Chronic systolic heart failure Claudication Dialysis patient Essential hypertension Former smoker Gastric reflux GERD (gastroesophageal reflux disease) Hard of hearing History of CHF (congestive heart failure) History of echocardiogram History of edema History of renal disease History of tobacco use Irregular heart beat Neuropathy Normal stress echocardiogram Obstructive sleep apnea Prediabetes Prostate disease Rheumatoid arthritis Shortness of breath Wears dentures Wears glasses Wears hearing aid Zach's granulomatosis Home Medications omeprazole 40 mg capsule,delayed release 40 mg PO DAILY stomach 11/04/18 [History Last Taken 01/18/22] gabapentin 100 mg tablet 200 mg PO QHS 08/29/22 [History Last Taken Unknown] handicap placard #1 ea 08/29/22 [Rx Last Taken Unknown] oxybutynin chloride 10 mg tablet,extended release 24 hr 10 mg PO DAILY 11/28/22 [History Last Taken Unknown] metoprolol tartrate 25 mg tablet 25 mg PO DAILY BP 01/14/23 [History Last Taken Unknown] oxycodone-acetaminophen 5 mg-325 mg tablet (Percocet) 1 tab PO Q8H PRN pain 30 days #90 tabs 02/17/23 [Rx Last Taken Unknown] Allergy/AdvReac Type Severity Reaction Status Date / Time aspirin AdvReac Severe cannot Verified 02/25/23 17:56 take d/t Zach's Vasculitis Family History Mother CAD (coronary artery disease) Congestive heart failure Father Prostate cancer Lung cancer Brother Colon cancer Sister Colon cancer Grandmother Diabetes Surgical History AV fistula Cataract extraction status H/O arthroscopy of left knee (1988) History of colonoscopy History of endoscopy (01/02/16) History of left heart catheterization (11/12/18) History of prostate biopsy (01/11/14) History of total right hip arthroplasty (02/05/16) Hx of bilateral cataract extraction S/P arthroscopic surgery of left knee (1989) S/P TURP Status post biopsy of kidney (12/2013) Social History household members: spouse housing: house 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 Status: Former smoker quit date: 07/26/81 pack-years: 19 Electronic Cigarette Use: not used alcohol intake: never substance use type: does not use what type of physical activity do you participate in: none seatbelt use: always do you feel safe at home: Yes ROS ROS ED Constitutional Constitutional ED: Reports malaise and weakness; Denies chills or fever(s) Eyes Eyes: Denies change in vision or diplopia ENT ENT ED: Denies rhinorrhea or sore throat Cardiovascular Cardiovascular: Denies chest pain or palpitations Respiratory/Chest Respiratory/Chest: Denies cough or dyspnea Gastrointestinal Gastrointestinal: Reports abdominal pain; Denies melena, nausea or vomiting Genitourinary Genitourinary ED: Denies dysuria or hematuria Musculoskeletal Musculoskeletal: Denies back pain or neck pain Integumentary Denies abscess or rash Neurologic Neurologic: Reports as per HPI and confusion; Denies focal weakness, headache(s), paresthesias, seizure-like activity or syncope Psychiatric Psychiatric: Denies depression or suicidal thoughts EXAM Physical Exam Const Vital Signs: 02/27/23 04:09 02/27/23 04:47 02/27/23 06:22 Temperature 99.7 F H Temperature Source Temporal Pulse Rate 126 H 118 H Respiratory Rate 18 18 Blood Pressure 189/101 H 157/92 H Blood Pressure Mean 130 113 Pulse Ox 96 Oxygen Delivery Method Room Air Room Air Positive well nourished, well developed and obese General Appearance ED: well developed and NAD Nutritional Appearance: obese HEENT Reports moist mucous membranes normocephalic and atraumatic Eyes PERRL and EOMs intact bilaterally Neck full ROM and supple Resp normal respiratory effort and clear to auscultation bilaterally Cardio regular rate, regular rhythm and no murmurs Rate: tachycardic GI GI Narrative: Tender throughout upper abdomen, with some involuntary guarding and mild reboundtenderness throughout although nontender lower abdomen except for the right lower quadrant where he is just mildly tender. Peritoneal dialysis tubing site is benign. There is no fluid within the tubing. Inspection: abdominal distention Auscultation: normoactive bowel sounds Palpation: soft Back/Spine no CVA tenderness General Back: other FROM Extremity normal to inspection General Extremety ED: Negative for edema, pulses abnormal or tenderness General Extremity: Negative for edema or pulses abnormal Neuro CN's II-XII intact bilaterally and no sensory deficits noted Sensorium / Orientation: awake, alert and orientation impaired Motor Exam: strength 5/5 throughout Psych mental status grossly normal Skin no rashes or lesions noted and no wounds MDM MDM MDM Narrative Medical decision making narrative: Has tachycardia, low-grade fever, some peritoneal signs, and a little disoriented after a fall out of bed. Wide differential, however I reviewed the EMR and the patient was here 2 days ago, which was not mentioned by the family but I reviewed that visit. He had a work-up including a CT of the abdomen/pelvis that showed chronic findings without anything acute requiring treatment. Clinically I am most concerned about peritonitis given the history and exam and now low-grade fever 99.7 and patient is becoming somewhat encephalopathic. His white blood count is only 6.9 but he does have a predilection for neutrophils. His chronic kidney disease is noted, his electrolytes are stable, CT of the head shows no acute explanation for his disorientation, my interpretation of the CT agrees with that of the radiologist. Chest x-ray 1 view shows no acute infiltrates on my interpretation, of which radiology is in agreement. His lactic acid is within normal limits, his vital signs of remained stable he is hypertensive but not emergently so, his tachycardia has improved with some IV fluids and Tylenol. I discussed with his home health administrator Dr. Pacheco, who does not come to this hospital which I did not realize, he states usually the [facility] sees his patient so I discussed with Dr. Smith who was on-call for them. He agrees with admitting the patient, and recommends giving ceftaz and vancomycin immediately after we obtain a sample of his peritoneal fluid from his dialysis catheter empirically without waiting for results (we do not have ceftazidime at this hospital, so we will give a different third-generation cephalosporin, ceftriaxone instead). At the current time at this hospital, we do not have peritoneal dialysis services, and we do not have the necessary equipment to perform peritoneal dialysis, however the patient has all of this necessary equipment at home. We require this in order to even obtain a sample from his catheter, because he has the sterile caps and we do not have those at this hospital. Family does want him tostay here, and they went home to get the equipment so that we can obtain a sample and start the appropriate antibiotics. We did discuss doing a paracentesis instead, although certainly this would in my judgment put the patient at increased risk for injury and complications of the procedure, and I think these risks outweigh the potential benefits of getting a sample sooner because the patient is not septic and is doing relatively well clinically I think he can wait 1-2 hours for the patient's family to go home and get the equipment at return. Will discuss with hospitalist for admission. History & Record Review Additional record(s) reviewed:: Prior ED visit Lab Data Attestation: I reviewed the patient's lab results. Labs: Laboratory Results - last 24 hr 02/27/23 02/27/23 02/27/23 04:26 04:44 04:53 WBC 6.9 RBC 4.04 L Hgb 12.6 L Hct 38.7 L MCV 95.8 H MCH 31.2 MCHC 32.6 RDW Std Deviation 48.0 H RDW Coeff of Misael 13.5 Plt Count 128 L MPV 9.5 Immature Gran % (Auto) 0.400 Neut % (Auto) 89.2 H Lymph % (Auto) 4.9 L [place] % (Auto) 4.6 Eos % (Auto) 0.6 Baso % (Auto) 0.3 Absolute Neuts (auto) 6.1 Absolute Lymphs (auto) 0.34 L Nucleated RBC % 0 Differential Comment SCANNED PT 14.2 INR 1.1 APTT 31.2 Sodium 134 L Potassium 4.2 Chloride 104 Carbon Dioxide 27.0 Anion Gap 3 L BUN 27 H Creatinine 3.18 H Estim Creat Clear Calc 18.48 Est GFR (MDRD) Af Amer 25 L Est GFR (MDRD) Non-Af 20 L BUN/Creatinine Ratio 8.5 L Glucose 140 H Lactic Acid 0.9 Calcium 8.8 Total Bilirubin 0.70 AST 19 ALT 27 Alkaline Phosphatase 136 H Troponin I High Sens 18 Total Protein 6.1 L Albumin 3.0 L Globulin 3.1 Albumin/Globulin Ratio 1.0 Lipase 14 Urine Color Yellow Urine Clarity Clear Urine pH 7.0 Ur Specific [place] 1.005 Urine Protein 30 H Urine Glucose (UA) Normal Urine Ketones Negative Urine Occult Blood 25 H Urine Nitrite Negative Urine Bilirubin Negative Urine Urobilinogen Normal Ur Leukocyte Esterase 500 H Urine RBC 0-5 SEEN Urine WBC 25-50 SEEN Ur Squamous Epith Cells 0 SEEN Urine Bacteria 1+ Urine Mucus 0 SEEN Radiography Diagnostic Testing: Clinical Impression(s) from Imaging Studies Chest X-Ray 02/27/23 04:26 IMPRESSION: No significant interval change. No radiographic evidence of acute cardiopulmonary disease. Electronically Signed: Darien Cole MD at 5:28 EDT , Brain CT 02/27/23 04:29 IMPRESSION: 1. Mild age-related atrophy. 2. Minimal maxillary sinus mucosal disease. 3. No hemorrhage or other acute intracranial abnormality. Electronically Signed: Darien Cole MD at 5:32 EDT , Rhythm Strip Rhythm Strip: Sinus Tach Rate: 125 Ectopy: None EKG Initial EKG: Attestation: I personally reviewed and interpreted this EKG as follows: Interpretation: No Acute Injury Pattern and Sinus Tachycardia Management Discussion w/another healthcare provider: Hospitalist and Buffer Operator (nephrologySarah Anne) Discharge Plan Triage Chief Complaint: Syncope ED Provider: Tha Leblanc Dx/Rx/DC Orders Clinical Impression: ESRD on peritoneal dialysis, Acute encephalopathy, Acute peritonitis Prescriptions: No Action omeprazole 40 mg capsule,delayed release(DR/EC) 40 mg PO DAILY gabapentin 100 mg tablet 200 mg PO QHS (DME) handicap placard See Rx Instructions .ROUTE .MEDSUPPLY Qty: 1 0RF Rx Instructions: Length of time: 5 years Diagnosis: Impaired physical mobility z74.09 oxybutynin chloride 10 mg tablet extended release 24hr 10 mg PO DAILY metoprolol tartrate 25 mg tablet 25 mg PO DAILY Patient Comments: Heart medication oxycodone-acetaminophen [Percocet] 5-325 mg tablet 1 tab PO Q8H PRN (Reason: pain) 30 Days Qty: 90 0RF Primary Care Provider: Matilde Noguera Referrals: Matilde Noguera MD [Primary Care Provider] - What to do if you have Problems For any increased pain, shortness of breath, bleeding, nausea or vomiting, chestpain, or any unexpected problems, contact your Primary Care Provider. Call [facility] ([phone]) or report to the closest Emergency Room. Call 911 if necessary. 02/27/23 0730 <Electronically signed by Tha Leblanc MD> Cosigner Signature (if applicable): CC: Dr. Matilde Noguera MD ~ Signed [place] Work Phone: [phone] Miscellaneous Notes* Perioperative Nursing Note - Freda Avila RN - 12/31/2022 4:00 PM EDT Pt ambulated in hallway with RN denies dizziness/nausea. Pt changed. INT removed. Pending pt son toarrive for dc. * Perioperative Nursing Note - Freda Avila RN - 12/31/2022 3:10 PM EDT Family/visitor at bedside with patient. Discharge information given to the . Patient and family verbalized understanding of information. All questions were answered before discharge. Tolerating PO fluids and crackers. Vital signs are stable. * Op Note - Elroy Thomas MD - 12/31/2022 1:42 PM EDT Images from the original note were not included. ELROY THOMAS MD , FACS, [facility] MINIMALLY INVASIVE & METABOLIC / BARIATRIC SURGERY [facility] OPERATIVE REPORT 12/31/2022 PATIENT: Franklin Burton DATE OF : 1945 PROCEDURE: LAPAROSCOPIC PERITONEAL DIALYSIS CATHETER PLACEMENT (57597) LAPAROSCOPIC OMENTOPEXY (92364) SURGEON: Elroy Thomas MD [employer] SUPERVISOR: Allison Torres MD. - Dr. Allison Torres was requested to assist on this complex minimally invasive procedure as not qualified assistants were available. PRE-OPERATIVE DIAGNOSES: End Stage Renal Disease POST-OPERATIVE DIAGNOSES: Same ANESTHESIA: General endotracheal FLUIDS: Crystalloid ESTIMATED BLOOD LOSS: Minimal URINE OUTPUT: Not recorded PREOPERATIVE MEDICATIONS: Pre-operative IV antibiotics: 2 gm cefazolin INDICATIONS FOR PROCEDURE: The patient is a 77 y.o. male with end stage renal disease requiring renal replacement therapy. The patient was evaluated at the office and wished to proceed with peritoneal dialysis. The risks, benefits and options were reviewed and all questions were answered to the patient's satisfaction. DESCRIPTION OF PROCEDURE: The patient was transported to the operating room and identified by name and number. The patient was placed on the operating room table in the supine position and general endotracheal anesthesia was administered by members of the anesthesia team. Following placement of sequ ential compression devices, the patients extremities were positioned and protected. The abdomen wasprepped and draped in standard surgical fashion. An operating room team "time out" was performed confirming the identity of the patient and the planned procedure. Access to the abdominal cavity was obtained in the left upper quadrant at Waldrop's point using an optical trocar. Pneumoperitoneum was established and a brief exploration of the abdominal cavity was performed. An additional 5-mm trocars were carefully placed under direct visualization in the extreme left abdomen and another at the catheter exit site, slightly inferior and lateral to the umbilicuson the right. Following this, the omentum was reflected cephalad and the omental edges identified. A #2-0 silk suture was placed around the edge of the omentum in [id number] fashion and pulled out in the right upper quadrant near the rib cage using a transabdominal suture passer. This was tied down creatingan omentopexy to the right upper quadrant abdominal wall near the costal margin. Our attention was then taken to the lower abdomen. The patient was placed in slight Trendelenburg position. The dome of the urinary bladder and the dependent portions of the pelvis were identified. The periumbilical incision was extended slightly and a blunt 10-mm trocar introducer was advanced in the preperitoneal space and tunneled toward the supra-pubic area Following this, the dialysis catheter was placed into the abdominal cavity. The trocar was removed and it was verified that the tissue ingrowth cuffs were positioned preperitoneally and subcutaneously. The catheter was positioned properly in the pelvis. The laparoscopic trocars were removed under direct visualization, allowing the pne umoperitoneum to escape. The catheter site was soaked with betadine and closed using 2-0 silk suture in interrupted fashion and a drain suture. A silk suture was also placed to the skin to avoid inadvertent pulling of the catheter. The catheter was flushed with heparinized saline and a betadine capwas applied to the catheter extension. The skin incisions were closed using 4-0 Vycril suture in subcuticular fashion. This was followed by steri strips and sterile dressings. The catheter site was dressed in standard fashion using bacitracin ointment and a sterile bio- occlusive dressing. The needle, sponge and instrument counts were correct. The patient tolerated the procedure and the anesthesia well without any major complications. The patients was transported to the post-anesthesiacare unit in stable condition. I was present for the entire duration of the procedure. Additional Informantion: Armored Car Guard: * Brief Op Note - Allison Torres MD - 12/31/2022 1:42 PM EDT Date: 12/31/2022 Location: [facility] OR Name: Franklin Burton, : 1945, Diagnosis Pre-op Diagnosis * End stage renal disease (HCC) [N18.6] Post-op Diagnosis * End stage renal disease (HCC) [N18.6] Procedures LAPAROSCOPIC CONTINUOUS AMBULATORY PERITONEAL DIALYSIS CATHETER PLACEMENT WITH OMENTOPEXY, 43097 - WA LAPS INSERTION TUNNELED INTRAPERITONEAL CATHETER LAPAROSCOPY WITH OMENTOPEXY (OMENTAL TACKING PROCEDURE) 82387 - [place] LAPAROSCOPY W/OMENTOPEXY Surgeons * Elroy Thomas - Primary Procedure Summary Anesthesia: General ASA: III Estimated Blood Loss: Minimal Drains: Urethral Catheter (Active) Staff: Windows Server Specialist: Shobha Zapien RN Scrub Person: Adilia Espinosa Findings: PD catheter placed in appropriate position Complications: None; patient tolerated the procedure well. Specimens Collected: Order Name Source Comment Collection Info Order Time BASIC METABOLIC PANEL Blood, Venous Collected By: Lyndsey Chun RN 12/31/2022 12:34 PM PROTHROMBIN TIME If patient on coumadin within 4 days prior. 12/31/2022 12:34 PM Wound Class: Class I: Clean Blood Products: None Prophylactic Antibiotics: Procedure appropriate prophylactic antibiotic(s) given within 1 hour of surgical incision (two hours if receiving Vancomycin or flouroquinolone) documented in this [facility]08-15-2023 Note* Perioperative Nursing Note - Freda Avila RN - 12/31/2022 4:00 PM EDT Pt ambulated in hallway with RN denies dizziness/nausea. Pt changed. INT removed. Pending pt son toarrive for dc. [place] [id number] Note* Perioperative Nursing Note - Freda Avila RN - 12/31/2022 3:10 PM EDT Family/visitor at bedside with patient. Discharge information given to the . Patient and family verbalized understanding of information. All questions were answered before discharge. Tolerating PO fluids and crackers. Vital signs are stable. [place] [id number] Attending History and physical note* Elroy Thomas MD - 12/31/2022 1:42 PM EDT H&P reviewed. The patient was examined and there are no changes to the H&P. Source Note - Destiny Muir APRN - [place] - 12/24/2022 1:30 PM EDT Images from the original note were not included. Comprehensive Pre Surgical History and Physical ? Name: Franklin Burton : 1945 (Age-77 y.o.) Date of Service: Pt seen/examined on 12/24/2022 Procedure Information Date/Time: 12/31/22 1430 Procedures: LAPAROSCOPIC CONTINUOUS AMBULATORY PERITONEAL DIALYSIS CATHETER PLACEMENT WITH OMENTOPEXY, POSSIBLEOPEN (Abdomen) LAPAROSCOPY WITH OMENTOPEXY (OMENTAL TACKING PROCEDURE) (Abdomen) Location: [address] Operating Room Surgeons: Elroy Thomas MD Chief Complaint: End stage renal disease (HCC) [N18.6] ASSESSMENT/PLAN: Patient is considered intermediate risk for this low/intermediate risk procedure/surgery () with noreducible risk factors. Based on the above evaluation, the benefits of the planned procedure likelyexceed the risks. The patient is medically optimized to proceed with the planned procedure without any further cardiopulmonary testing. 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 - Follows OP Nephrology 5) GERD - managed on Prilosec - avoid triggers 8) BPH - managed on Osorio Catheter - s/p prostate bx- 12/2013 - managed on Ditropan XL 9) ROYAL - managed on CPAP-no complaint Visit Type: Pre-Admission Testing Visit Labs Ordered: YES - PER [facility] PROTOCOL Sleep Referral Ordered: NO - ALREADY DIAGNOSED WITH ROYAL AND PATIENT IS NOT COMPLIANT WITH CPAP Total time spent (which include face to face and non face to face encounters) : 30 minutes Toxic drug monitoring/narrow therapeutic index drug monitoring : # Drug name : n/a # Route administered : n/a # Method of monitoring : n/a PAT Protocol referenced includes: 1. Anesthesia Lab Protocol Orders 2. Perioperative Cardiovascular Risk Assessment 3. Anesthesia Assessment 4. Pain Assessment and Acute Pain Service Consult (if appropriate) 5. Medical Clearance/Consult from Internal Medicine ([facility]) 6. Shower/Wash Order (for designated surgeries) 7. ROYAL Screen and Sleep Clinic Referral (if appropriate) History Of Present Illness: 77 y.o. male who we are asked to see/evaluate by Elroy Thomas MD for pre- operative evaluation prior to above procedure. Patient presented to [facility] with his in no acute physical distress. He reports several years with CKD and is currently receiving HD through his [facility] AV fistula. Patient states hewould like to start getting treatments at home because he has to drive a long distance. Last OV with Elroy Thomas MD 12/16/2022. He denies sob, cp, palpitations, abdominal discomfort, n/v/d/c fever or chills. Denies history of IN, CAD, CHF, TIA, CVA, diabetes, seizures, strokes. Past Medical History: Past Medical History: No date: Allergic rhinitis No date: BPH (benign prostatic hyperplasia) No date: CHF (congestive heart failure) (CMS/HCC) ([facility]) No date: Chronic back pain No date: Chronic kidney disease 06/05/2020: Chronic systolic heart failure (CMS/HCC) ([facility]) spring 2014: Compression fracture Comment: T12 07/24/2016: Diabetes mellitus without complication ([facility]/HCC) ([facility]) Comment: no diabetes No date: GERD (gastroesophageal reflux disease) No date: [place] (hard of hearing) Comment: 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 No date: Hypertension No date: Obesity No date: ROYAL (obstructive sleep apnea) No date: Osteoarthritis No date: Restless legs syndrome 03/19/2016: Status post right hip replacement 07/24/2016: Urge incontinence No date: 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[facility]) Past Surgical History: Past Surgical History: No date: CATARACT EXTRACTION; Bilateral No date: COLONOSCOPY 01/02/2016: COLONOSCOPY Comment: Repeat in 3 years, colon polyps, diverticulosis and internal hemorrhoid 08/24/2017: COLONOSCOPY Comment: by Joana Moreno, repeat in 5 years, diverticulosis, internal hemorrhoid No date: EYE SURGERY 02/05/2016: HIP ARTHROPLASTY; Right Comment: right hip 02/20/2021: HX AV FISTULA CREATION; Left No date: JOINT REPLACEMENT 1988: KNEE ARTHROSCOPY; Left 1989: ORTHOPEDIC SURGERY; Left Comment: knee- left knee mensicus arthroscopic surgery 01/11/2014: PROSTATE BIOPSY Comment: trus bx- negative 12/2013: RENAL BIOPSY 04/06/2020: TRANSURETHRAL RESECTION OF PROSTATE Comment: Button TURPFlorence Zarco 01/02/2016: UPPER GASTROINTESTINAL ENDOSCOPY Comment: gasttitis, duodentits, GERD with esophagitis 08/22/2017: UPPER GASTROINTESTINAL ENDOSCOPY Comment: by Dr. Bernard, no BE , gastritis, duodenitis and esophagus No date: WISDOM TOOTH EXTRACTION Medications Prior to Admission: Current Outpatient Medications on File Prior to Visit Medication Sig Dispense Refill azaTHIOprine (Imuran) 50 MG tablet Daily with lunch. calcitriol (Rocaltrol) 0.25 MCG capsule Take 2 capsules by mouth every other day. -- gabapentin (Neurontin) 100 MG capsule Take 2 capsules by mouth Nightly. metoprolol tartrate (Lopressor) 25 MG tablet Take 1 tablet by mouth in the morning and 1 tablet before bedtime. nystatin (Mycostatin) 698242 UNIT/ML suspension omeprazole (PriLOSEC) [address] capsule Take 1 capsule (40 mg) by mouth daily. 90 capsule 3 oxybutynin XL (Ditropan-XL) 10 MG 24 hr tablet Take 10 mg by mouth every evening. oxyCODONE-acetaminophen (Percocet) 5-325 MG tablet TAKE 1 TABLET BY MOUTH EVERY 8 HOURS NEEDED FOR PAIN FOR 30 DAYS sulfamethoxazole-trimethoprim (Bactrim) 400-80 MG tablet Take 1 tablet by mouth Daily with lunch. albuterol 108 (90 Base) MCG/ACT inhaler Inhale 2 puffs every 6 hours as needed. clotrimazole-betamethasone (Lotrisone) cream Apply topically 2 times daily as needed. Patiromer Sorbitex Calcium 8.4 g pack Take 8.4 g by mouth. triamcinolone (Kenalog) 0.1 % ointment Apply topically 2 times daily. [DISCONTINUED] aspirin 81 MG EC tablet Take 81 mg by mouth in the morning. [DISCONTINUED] cholecalciferol (Vitamin D-3) 1.25 MG (24717 UT) capsule Take by mouth. [DISCONTINUED] fluticasone (Flonase) 50 MCG/ACT nasal spray Administer 2 sprays into affected nostril(s) in the morning. [DISCONTINUED] sodium bicarbonate 650 MG tablet Take 1 tablet by mouth in the morning and 1 tablet at noon and 1 tablet before bedtime. [DISCONTINUED] tamsulosin (Flomax) 0.4 MG 24 hr capsule Take 1 capsule by mouth in the morning. No current facility-administered medications on file prior to visit. CHRONIC NARCOTIC USE: Yes, Percocet Allergies: Aspirin and Other If patient has opioid allergy, is it okay to take Acetaminophen: Yes Social History: TOBACCO: reports that he quit smoking about 41 years ago. His smoking use included cigarettes. He started smoking about 60 years ago. He smoked an average of 1 pack per day. He has never used smokeless tobacco. ETOH: reports no history of alcohol use. Social History Substance and Sexual Activity Drug Use No Family History: Family History Problem Relation Name Age of Onset Bleeding Prob Other Diabetes Maternal Grandmother Colon cancer Sister 70.00 Colon cancer Brother Norris 70.00 Prostate cancer Father Lung cancer Father Heart failure Mother Heart disease Mother REVIEW OF SYSTEMS: Review of Systems Constitutional: Negative for chills and fever. HENT: Negative for congestion and trouble swallowing. Eyes: Negative for visual disturbance. Respiratory: Negative for cough and shortness of breath. Cardiovascular: Negative for chest pain, palpitations and leg swelling. Gastrointestinal: Negative for blood in stool and nausea. Genitourinary: Negative for difficulty urinating and dysuria. Skin: Negative for rash. Neurological: Negative for dizziness, syncope, light-headedness and headaches. Psychiatric/Behavioral: Negative for agitation and confusion. Physical Exam: Physical Exam Constitutional: General: He is not in acute distress. Appearance: Normal appearance. HENT: Head: Normocephalic and atraumatic. Mouth/Throat: Mouth: Mucous membranes are moist. Eyes: Extraocular Movements: Extraocular movements intact. Cardiovascular: Rate and Rhythm: Normal rate and regular rhythm. Heart sounds: Normal heart sounds. Arteriovenous access: Left arteriovenous access is present. Comments: + thrill and bruit Pulmonary: Effort: Pulmonary effort is normal. Breath sounds: Normal breath sounds. Musculoskeletal: General: Normal range of motion. Cervical back: Normal range of motion and neck supple. Skin: General: Skin is warm and dry. Neurological: General: No focal deficit present. Mental Status: He is alert. Mental status is at baseline. Psychiatric: Mood and Affect: Mood normal. Behavior: Behavior normal. Vitals: Vitals Value Taken Time BP 118/65 12/24/22 1325 Temp 37.1 C (98.8 F) 12/24/22 1325 Pulse 76 12/24/22 1325 Resp 16 12/24/22 1325 SpO2 96 % 12/24/22 1325 Labs: Lab Results Component Value Date WBC 5.1 04/09/2021 HGB 13.4 04/09/2021 MCV 94.3 04/09/2021 Lab Results Component Value Date NA 136 04/09/2021 K 5.8 (H) 04/09/2021 CL 106 04/09/2021 CO2 22 04/09/2021 BUN 38 (H) 04/09/2021 CREATININE 3.20 (H) 04/09/2021 GLUCOSE 111 (H) 04/09/2021 CALCIUM 9.3 04/09/2021 PROT 6.2 (L) 04/09/2021 ALKPHOS 81 04/09/2021 AST 27 04/09/2021 Joe's Simple Cardiac Risk Index: Interpretation: 0 Points Class I 0.5% 1 Point Class II 1.3% 2 Points Class III 3.6% 3+ Points Class IV 9.1% PAT Pain Score: Postop Pain Management Plan (Pain consult ordered?): Pain consult not indicated at this time EKG: ordered and reviewed per PAT protocol ? EK02/14/2021 ECHO and EF:Echo 12/14/2019 EF 60% METS <4 sob NO CP. Does not have to stop Electronically signed by: DENISHA Jasso CNP Date: 12/24/2022 at 1:33 PM [facility] [employer] Work Phone: [phone] 144-287808-15-2023 Note* Op Note - Elroy Thomas MD - 12/31/2022 1:42 PM EDT Images from the original note were not included. ELROY THOMAS MD , FACS, [facility] MINIMALLY INVASIVE & METABOLIC / BARIATRIC SURGERY [facility] OPERATIVE REPORT 12/31/2022 PATIENT: Franklin Burton DATE OF : 1945 PROCEDURE: LAPAROSCOPIC PERITONEAL DIALYSIS CATHETER PLACEMENT (53256) LAPAROSCOPIC OMENTOPEXY (79882) SURGEON: Elroy Thomas MD [employer] SUPERVISOR: Allison Torres MD. - Dr. Allison Torres was requested to assist on this complex minimally invasive procedure as not qualified assistants were available. PRE-OPERATIVE DIAGNOSES: End Stage Renal Disease POST-OPERATIVE DIAGNOSES: Same ANESTHESIA: General endotracheal FLUIDS: Crystalloid ESTIMATED BLOOD LOSS: Minimal URINE OUTPUT: Not recorded PREOPERATIVE MEDICATIONS: Pre-operative IV antibiotics: 2 gm cefazolin INDICATIONS FOR PROCEDURE: The patient is a 77 y.o. male with end stage renal disease requiring renal replacement therapy. The patient was evaluated at the office and wished to proceed with peritoneal dialysis. The risks, benefits and options were reviewed and all questions were answered to the patient's satisfaction. DESCRIPTION OF PROCEDURE: The patient was transported to the operating room and identified by name and number. The patient was placed on the operating room table in the supine position and general endotracheal anesthesia was administered by members of the anesthesia team. Following placement of sequ ential compression devices, the patients extremities were positioned and protected. The abdomen wasprepped and draped in standard surgical fashion. An operating room team "time out" was performed confirming the identity of the patient and the planned procedure. Access to the abdominal cavity was obtained in the left upper quadrant at Waldrop's point using an optical trocar. Pneumoperitoneum was established and a brief exploration of the abdominal cavity was performed. An additional 5-mm trocars were carefully placed under direct visualization in the extreme left abdomen and another at the catheter exit site, slightly inferior and lateral to the umbilicuson the right. Following this, the omentum was reflected cephalad and the omental edges identified. A #2-0 silk suture was placed around the edge of the omentum in vmxhwc-vy-wzyjk fashion and pulled out in the right upper quadrant near the rib cage using a transabdominal suture passer. This was tied down creatingan omentopexy to the right upper quadrant abdominal wall near the costal margin. Our attention was then taken to the lower abdomen. The patient was placed in slight Trendelenburg position. The dome of the urinary bladder and the dependent portions of the pelvis were identified. The periumbilical incision was extended slightly and a blunt 10-mm trocar introducer was advanced in the preperitoneal space and tunneled toward the supra-pubic area Following this, the dialysis catheter was placed into the abdominal cavity. The trocar was removed and it was verified that the tissue ingrowth cuffs were positioned preperitoneally and subcutaneously. The catheter was positioned properly in the pelvis. The laparoscopic trocars were removed under direct visualization, allowing the pne umoperitoneum to escape. The catheter site was soaked with betadine and closed using 2-0 silk suture in interrupted fashion and a drain suture. A silk suture was also placed to the skin to avoid inadvertent pulling of the catheter. The catheter was flushed with heparinized saline and a betadine capwas applied to the catheter extension. The skin incisions were closed using 4-0 Vycril suture in subcuticular fashion. This was followed by steri strips and sterile dressings. The catheter site was dressed in standard fashion using bacitracin ointment and a sterile bio- occlusive dressing. The needle, sponge and instrument counts were correct. The patient tolerated the procedure and the anesthesia well without any major complications. The patients was transported to the post-anesthesiacare unit in stable condition. I was present for the entire duration of the procedure. Additional Informantion: [employer]: [id number] Note* Brief Op Note - Allison Torres MD - 12/31/2022 1:42 PM EDT Date: 12/31/2022 Location: [facility] OR Name: Franklin Burton, : 1945, Diagnosis Pre-op Diagnosis * End stage renal disease (HCC) [N18.6] Post-op Diagnosis * End stage renal disease (HCC) [N18.6] Procedures LAPAROSCOPIC CONTINUOUS AMBULATORY PERITONEAL DIALYSIS CATHETER PLACEMENT WITH OMENTOPEXY, 28027 - WA LAPS INSERTION TUNNELED INTRAPERITONEAL CATHETER LAPAROSCOPY WITH OMENTOPEXY (OMENTAL TACKING PROCEDURE) 54326 - [place] LAPAROSCOPY W/OMENTOPEXY Surgeons * Elroy Thomas - Primary Procedure Summary Anesthesia: General ASA: III Estimated Blood Loss: Minimal Drains: Urethral Catheter (Active) Staff: Windows Server Specialist: Shobha Zapien RN Scrub Person: Adilia Espinosa Findings: PD catheter placed in appropriate position Complications: None; patient tolerated the procedure well. Specimens Collected: Order Name Source Comment Collection Info Order Time BASIC METABOLIC PANEL Blood, Venous Collected By: Lyndsey Chun RN 12/31/2022 12:34 PM PROTHROMBIN TIME If patient on coumadin within 4 days prior. 12/31/2022 12:34 PM Wound Class: Class I: Clean Blood Products: None Prophylactic Antibiotics: Procedure appropriate prophylactic antibiotic(s) given within 1 hour of surgical incision (two hours if receiving Vancomycin or flouroquinolone) [id number] History and physical note* Elroy Thomas MD - 12/31/2022 1:42 PM EDT H&P reviewed. The patient was examined and there are no changes to the H&P. Source Note - Destiny Muir APRN - WHEEL SETTER - 12/24/2022 1:30 PM EDT Images from the original note were not included. Comprehensive Pre Surgical History and Physical ? Name: Franklin Burton : 1945 (Age-77 y.o.) Date of Service: Pt seen/examined on 12/24/2022 Procedure Information Date/Time: 12/31/22 1430 Procedures: LAPAROSCOPIC CONTINUOUS AMBULATORY PERITONEAL DIALYSIS CATHETER PLACEMENT WITH OMENTOPEXY, POSSIBLEOPEN (Abdomen) LAPAROSCOPY WITH OMENTOPEXY (OMENTAL TACKING PROCEDURE) (Abdomen) Location: [facility] OR [address] [place] [address] Operating Room Surgeons: Elroy Thomas MD Chief Complaint: End stage renal disease (HCC) [N18.6] ASSESSMENT/PLAN: Patient is considered intermediate risk for this low/intermediate risk procedure/surgery () with noreducible risk factors. Based on the above evaluation, the benefits of the planned procedure likelyexceed the risks. The patient is medically optimized to proceed with the planned procedure without any further cardiopulmonary testing. 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 - Follows OP Nephrology 5) GERD - managed on Prilosec - avoid triggers 8) BPH - managed on Osorio Catheter - s/p prostate bx- 12/2013 - managed on Ditropan XL 9) ROYAL - managed on CPAP-no complaint Visit Type: Pre-Admission Testing Visit Labs Ordered: YES - PER PAT PROTOCOL Sleep Referral Ordered: NO - ALREADY DIAGNOSED WITH ROYAL AND PATIENT IS NOT COMPLIANT WITH CPAP Total time spent (which include face to face and non face to face encounters) : 30 minutes Toxic drug monitoring/narrow therapeutic index drug monitoring : # Drug name : n/a # Route administered : n/a # Method of monitoring : n/a PAT Protocol referenced includes: 1. Anesthesia Lab Protocol Orders 2. Perioperative Cardiovascular Risk Assessment 3. Anesthesia Assessment 4. Pain Assessment and Acute Pain Service Consult (if appropriate) 5. Medical Clearance/Consult from Internal Medicine (IMS) 6. Shower/Wash Order (for designated surgeries) 7. ROYAL Screen and Sleep Clinic Referral (if appropriate) History Of Present Illness: 77 y.o. male who we are asked to see/evaluate by Elroy Thomas MD for pre- operative evaluation prior to above procedure. Patient presented to [facility] with his in no acute physical distress. He reports several years with CKD and is currently receiving HD through his [facility] AV fistula. Patient states hewould like to start getting treatments at home because he has to drive a long distance. Last OV with Elroy Thomas MD 12/16/2022. He denies sob, cp, palpitations, abdominal discomfort, n/v/d/c fever or chills. Denies history of IN, CAD, CHF, TIA, CVA, diabetes, seizures, strokes. Past Medical History: Past Medical History: No date: Allergic rhinitis No date: BPH (benign prostatic hyperplasia) No date: CHF (congestive heart failure) ([facility]) ([facility]) No date: Chronic back pain No date: Chronic kidney disease 06/05/2020: Chronic systolic heart failure ([facility]) ([facility]) spring 2014: Compression fracture Comment: T12 07/24/2016: Diabetes mellitus without complication ([facility]) ([facility]) Comment: no diabetes No date: GERD (gastroesophageal reflux disease) No date: [place] (hard of hearing) Comment: 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 No date: Hypertension No date: Obesity No date: ROYAL (obstructive sleep apnea) No date: Osteoarthritis No date: Restless legs syndrome 03/19/2016: Status post right hip replacement 07/24/2016: Urge incontinence No date: 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[facility]) Past Surgical History: Past Surgical History: No date: CATARACT EXTRACTION; Bilateral No date: COLONOSCOPY 01/02/2016: COLONOSCOPY Comment: Repeat in 3 years, colon polyps, diverticulosis and internal hemorrhoid 08/24/2017: COLONOSCOPY Comment: by Joana Moreno, repeat in 5 years, diverticulosis, internal hemorrhoid No date: EYE SURGERY 02/05/2016: HIP ARTHROPLASTY; Right Comment: right hip 02/20/2021: HX AV FISTULA CREATION; Left No date: JOINT REPLACEMENT 1988: KNEE ARTHROSCOPY; Left 1989: ORTHOPEDIC SURGERY; Left Comment: knee- left knee mensicus arthroscopic surgery 01/11/2014: PROSTATE BIOPSY Comment: trus bx- negative 12/2013: RENAL BIOPSY 04/06/2020: TRANSURETHRAL RESECTION OF PROSTATE Comment: Button TURP. [place] 01/02/2016: UPPER GASTROINTESTINAL ENDOSCOPY Comment: gasttitis, duodentits, GERD with esophagitis 08/22/2017: UPPER GASTROINTESTINAL ENDOSCOPY Comment: by Dr. Bernard, no BE , gastritis, duodenitis and esophagus No date: WISDOM TOOTH EXTRACTION Medications Prior to Admission: Current Outpatient Medications on File Prior to Visit Medication Sig Dispense Refill azaTHIOprine (Imuran) 50 MG tablet Daily with lunch. calcitriol (Rocaltrol) 0.25 MCG capsule Take 2 capsules by mouth every other day. -W- gabapentin (Neurontin) 100 MG capsule Take 2 capsules by mouth Nightly. metoprolol tartrate (Lopressor) 25 MG tablet Take 1 tablet by mouth in the morning and 1 tablet before bedtime. nystatin (Mycostatin) 459990 UNIT/ML suspension omeprazole (PriLOSEC) [address] capsule Take 1 capsule (40 mg) by mouth daily. 90 capsule 3 oxybutynin XL (Ditropan-XL) 10 MG 24 hr tablet Take 10 mg by mouth every evening. oxyCODONE-acetaminophen (Percocet) 5-325 MG tablet TAKE 1 TABLET BY MOUTH EVERY 8 HOURS NEEDED FOR PAIN FOR 30 DAYS sulfamethoxazole-trimethoprim (Bactrim) 400-80 MG tablet Take 1 tablet by mouth Daily with lunch. albuterol 108 (90 Base) MCG/ACT inhaler Inhale 2 puffs every 6 hours as needed. clotrimazole-betamethasone (Lotrisone) cream Apply topically 2 times daily as needed. Patiromer Sorbitex Calcium 8.4 g pack Take 8.4 g by mouth. triamcinolone (Kenalog) 0.1 % ointment Apply topically 2 times daily. [DISCONTINUED] aspirin 81 MG EC tablet Take 81 mg by mouth in the morning. [DISCONTINUED] cholecalciferol (Vitamin D-3) 1.25 MG (11318 UT) capsule Take by mouth. [DISCONTINUED] fluticasone (Flonase) 50 MCG/ACT nasal spray Administer 2 sprays into affected nostril(s) in the morning. [DISCONTINUED] sodium bicarbonate 650 MG tablet Take 1 tablet by mouth in the morning and 1 tablet at noon and 1 tablet before bedtime. [DISCONTINUED] tamsulosin (Flomax) 0.4 MG 24 hr capsule Take 1 capsule by mouth in the morning. No current facility-administered medications on file prior to visit. CHRONIC NARCOTIC USE: Yes, Percocet Allergies: Aspirin and Other If patient has opioid allergy, is it okay to take Acetaminophen: Yes Social History: TOBACCO: reports that he quit smoking about 41 years ago. His smoking use included cigarettes. He started smoking about 60 years ago. He smoked an average of 1 pack per day. He has never used smokeless tobacco. ETOH: reports no history of alcohol use. Social History Substance and Sexual Activity Drug Use No Family History: Family History Problem Relation Name Age of Onset Bleeding Prob Other Diabetes Maternal Grandmother Colon cancer Sister 70.00 Colon cancer Brother Tucker 70.00 Prostate cancer Father Lung cancer Father Heart failure Mother Heart disease Mother REVIEW OF SYSTEMS: Review of Systems Constitutional: Negative for chills and fever. HENT: Negative for congestion and trouble swallowing. Eyes: Negative for visual disturbance. Respiratory: Negative for cough and shortness of breath. Cardiovascular: Negative for chest pain, palpitations and leg swelling. Gastrointestinal: Negative for blood in stool and nausea. Genitourinary: Negative for difficulty urinating and dysuria. Skin: Negative for rash. Neurological: Negative for dizziness, syncope, light-headedness and headaches. Psychiatric/Behavioral: Negative for agitation and confusion. Physical Exam: Physical Exam Constitutional: General: He is not in acute distress. Appearance: Normal appearance. HENT: Head: Normocephalic and atraumatic. Mouth/Throat: Mouth: Mucous membranes are moist. Eyes: Extraocular Movements: Extraocular movements intact. Cardiovascular: Rate and Rhythm: Normal rate and regular rhythm. Heart sounds: Normal heart sounds. Arteriovenous access: Left arteriovenous access is present. Comments: + thrill and bruit Pulmonary: Effort: Pulmonary effort is normal. Breath sounds: Normal breath sounds. Musculoskeletal: General: Normal range of motion. Cervical back: Normal range of motion and neck supple. Skin: General: Skin is warm and dry. Neurological: General: No focal deficit present. Mental Status: He is alert. Mental status is at baseline. Psychiatric: Mood and Affect: Mood normal. Behavior: Behavior normal. Vitals: Vitals Value Taken Time BP 118/65 12/24/22 1325 Temp 37.1 C (98.8 F) 12/24/22 1325 Pulse 76 12/24/22 1325 Resp 16 12/24/22 1325 SpO2 96 % 12/24/22 1325 Labs: Lab Results Component Value Date WBC 5.1 04/09/2021 HGB 13.4 04/09/2021 MCV 94.3 04/09/2021 Lab Results Component Value Date NA 136 04/09/2021 K 5.8 (H) 04/09/2021 CL 106 04/09/2021 CO2 22 04/09/2021 BUN 38 (H) 04/09/2021 CREATININE 3.20 (H) 04/09/2021 GLUCOSE 111 (H) 04/09/2021 CALCIUM 9.3 04/09/2021 PROT 6.2 (L) 04/09/2021 ALKPHOS 81 04/09/2021 AST 27 04/09/2021 Joe's Simple Cardiac Risk Index: Interpretation: 0 Points Class I 0.5% 1 Point Class II 1.3% 2 Points Class III 3.6% 3+ Points Class IV 9.1% PAT Pain Score: Postop Pain Management Plan (Pain consult ordered?): Pain consult not indicated at this time EKG: ordered and reviewed per PAT protocol ? EK02/14/2021 ECHO and EF:Echo 12/14/2019 EF 60% METS <4 sob NO CP. Does not have to stop Electronically signed by: Destiny Muir APRN - WHEEL SETTER Date: 12/24/2022 at 1:33 PM documented in this [facility]08-15-2023 Hospital Discharge instructions* Discharge Instructions* Allison Torres MD - 12/31/2022 9:25 AM EDT Images from the original note were not included. ELROY THOMAS MD , FACS, [facility] MINIMALLY INVASIVE & METABOLIC / BARIATRIC SURGERY [facility] DISCHARGE INSTRUCTIONS 12/31/2022 PATIENT: Franklin Burton DATE OF : 1945 Call your surgeon in 1 to 2 days to schedule a follow-up appointment in 1-2 weeks. OK to shower. OK for activity as tolerated. No lifting over 15 pounds. Wound Care: keep wound clean and dry If you have steri-strips, you may remove them 5 days after your surgery. If your steri-strips fall off sooner, you may leave them off. If you have pacheco, they can be removed in 14 days after your surgery by your surgeon or PCP. If you have a drain, please record daily output amounts and bring the recordings with you to your office follow up. No driving while taking narcotic pain medications. You may take an over the counter stool softener while on narcotics for constipation as needed (colace, miralax, etc). Call your Physician or return to the Emergency Room if you experience: -New or increased pain. -New or increased bleeding. -Nausea & vomitting. -Fever & chills. -Shortness of breath. -Chest pain. -Abdominal distention. Y THOMAS MD, [facility], [facility] Chief Gauger - Weight Management [facility] [employer] Architect - [facility], Foregut and Bariatric Surgery Fellowship ---[facility]--- documented in this encounterSAdena Regional Medical [id number] Telephone encounter Note* Telephone Encounter - Judie Saenz - 12/19/2022 12:47 PM EDT Message released to patient as written. Patient's further questions if applicable: n/a Were all questions from office addressed or relayed to the patient from encounter: Yes [place] [id number] Miscellaneous Notes* Telephone Encounter - Judie Saenz - 12/19/2022 12:47 PM EDT Message released to patient as written. Patient's further questions if applicable: n/a Were all questions from office addressed or relayed to the patient from encounter: Yes documented in [place]SPat[place] [id number] Telephone encounter Note* Telephone Encounter - Niurka Hall MA - 12/18/2022 2:04 PM EDT I called back and got voicemail. If she calls back please give dates and times for PAT and surgery [place] [id number] Miscellaneous Notes* Telephone Encounter - Niurka Hall MA - 12/18/2022 2:04 PM EDT I called back and got voicemail. If she calls back please give dates and times for PAT and surgery * Telephone Encounter - Lyndsey Diaz - 12/18/2022 1:09 PM EDT Pt 's daughter returning call. * Telephone Encounter - Niurka Hall MA - 12/18/2022 9:32 AM EDT LMVM to return call to go over surgical itinerary * Telephone Encounter - Niurka Hall MA - 12/17/2022 3:48 PM EDT LMVM to go over surgical Itinerary * Telephone Encounter - Niurka Hall MA - 12/12/2022 8:07 AM EDT I spoke with patients daughter, She states she will contact nephrology and call us when patient is ready to schedule. FYI * Telephone Encounter - Sherri Rodriguez PA-C - 12/10/2022 4:[address] Pacheco is patient's home health administrator so if he is clearing him, then he can be evaluated by Dr Thomas. Patient's daughter cancelled appt until patient was evaluated for MRSA * Telephone Encounter - Lacey Collins - 12/10/2022 3:[address] Gallego's office called and states that they spoke the [employer] and was informed that due to the level of mcclelland patient has is so small that he would not be treated and that he can have surgery. Their number is [phone] and [employer] pager number is [phone] I spoke to Mohan and she said per Sherri to cancel but Dr Gallego's office garcia not want it cancelled * Telephone Encounter - Mohan Simms MA - 12/02/2022 10:52 AM EDT Pt 's daughter called in saying that pt's PCP says that he has mcclelland and is canceling his appt. I told her to back once he is done with his treatment for mcclelland. She states understanding documented in this [place] [id number] Telephone encounter Note* Telephone Encounter - Lyndsey Diaz - 12/18/2022 1:09 PM EDT Pt 's daughter returning call. [place] [id number] Telephone encounter Note* Telephone Encounter - Niurka Hall MA - 12/18/2022 9:32 AM EDT LMVM to return call to go over surgical itinerary [place] [id number] Telephone encounter Note* Telephone Encounter - Niurka Hall MA - 12/17/2022 3:48 PM EDT LMVM to go over surgical Itinerary [place] [id number] Miscellaneous Notes* Telephone Encounter - Niurka Hall MA - 12/17/2022 3:48 PM EDT LMVM to go over surgical Itinerary * Telephone Encounter - Niurka Hall MA - 12/12/2022 8:07 AM EDT I spoke with patients daughter, She states she will contact nephrology and call us when patient is ready to schedule. FYI * Telephone Encounter - Sherri Rodriguez PA-C - 12/10/2022 4:[address] Pacheco is patient's home health administrator so if he is clearing him, then he can be evaluated by Dr Thomas. Patient's daughter cancelled appt until patient was evaluated for MRSA * Telephone Encounter - Lacey Collins - 12/10/2022 3:[address] Gallego's office called and states that they spoke the [employer] and was informed that due to the level of mcclelland patient has is so small that he would not be treated and that he can have surgery. Their number is [phone] and [employer] pager number is [phone] I spoke to Mohan and she said per Sherri to cancel but Dr Gallego's office garcia not want it cancelled * Telephone Encounter - Mohan Simms MA - 12/02/2022 10:52 AM EDT Pt 's daughter called in saying that pt's PCP says that he has mcclelland and is canceling his appt. I told her to back once he is done with his treatment for mcclelland. She states understanding documented in this [facility]07-31-2023 History of Present illness Narrative* Erika Cornell MA - 12/16/2022 1:45 PM EDT * Elroy Thomas MD - 12/16/2022 1:45 PM EDT Images from the original note were not included. ELROY THOMAS MD , FACS, [facility] ADVANCED LAPAROSCOPIC - ROBOTIC & BARIATRIC SURGERY [facility] HISTORY AND PHYSICAL 12/18/22 PATIENT: Franklin Burton DATE OF : 1945 CHIEF COMPLAINT End Stage Renal Disease - Seeking evaluation for peritoneal dialysis catheter HISTORY OF PRESENT ILLNESS Franklin Burton is a 77 y.o. male who was referred for evaluation for laparoscopic placement of aContinuous Ambulatory Peritoneal Dialysis (CAPD) catheter placement. The patient has been sufferingfrom renal insufficiency which has been worsening in nature and is secondary to diabetes and hypertension The patient is not undergoing evaluation for renal transplant. The patientis currently undergoing dialyis and is ready for immediate scheduling of surgery for catheter placement. The patient does nothave a history of previous peritoneal dialysis catheters or extensive abdominal surgical procedureswhich would decrease the likelihood of success with PD. No previous abdominal surgeries. H/o DM, HTN, CHF, ROYAL, BPH (TURP 2020), chronic pain (prescribed percocet TID by PCP). Former smoker (quit 1981). HE does not drink. Review of Symptoms Constitutional: negative for chills, fevers, night sweats, and weight loss Eyes: negative Ears, nose, mouth, throat, and face: negative Respiratory: negative for cough, dyspnea on exertion, hemoptysis, and sputum Cardiovascular: negative for chest pain, chest pressure/discomfort, dyspnea, irregular heart beat, palpitations, and syncope Integument/breasts: negative for dry skin and rash Gastrointestinal: negative for abdominal pain, constipation, diarrhea, dysphagia, melena, reflux symptoms, and vomiting Genitourinary: negative for dysuria, hematuria, and urinary incontinence. Positive for decreased urination Musculoskeletal:negative for back pain and myalgias Neurological: negative for dizziness, paresthesia, seizures, and positive for weakness Behavioral/Psych: negative for anxiety, irritability, and sleep disturbance Hematologic/lymphatic: negative for bleeding, easy bruising, lymphadenopathy, and petechiae Endocrine: negative for temperature intolerance Allergic/Immunologic: negative for anaphylaxis and hay fever PAST HISTORIES Past Medical History: Diagnosis Date Allergic rhinitis BPH (benign prostatic hyperplasia) CHF (congestive heart failure) ([facility]) ([facility]) Chronic back pain Chronic kidney disease Chronic systolic heart failure ([facility]) ([facility]) 06/05/2020 Compression fracture spring 2014 T12 Diabetes mellitus without complication ([facility]) ([facility]) 07/24/2016 no diabetes GERD (gastroesophageal reflux disease) [place] (hard of hearing) 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 Hypertension Obesity ROYAL (obstructive sleep apnea) Osteoarthritis Restless legs syndrome Status post right hip replacement 03/19/2016 Urge incontinence 07/24/2016 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[facility]) Past Surgical History: Procedure Laterality Date CATARACT EXTRACTION Bilateral COLONOSCOPY COLONOSCOPY 01/02/2016 Repeat in 3 years, colon polyps, diverticulosis and internal hemorrhoid COLONOSCOPY 08/24/2017 by Joana Moreno, repeat in 5 years, diverticulosis, internal hemorrhoid EYE SURGERY HIP ARTHROPLASTY Right 02/05/2016 right hip HX AV FISTULA CREATION Left 02/20/2021 JOINT REPLACEMENT KNEE ARTHROSCOPY Left 1988 ORTHOPEDIC SURGERY Left 1989 knee- left knee mensicus arthroscopic surgery PROSTATE BIOPSY 01/11/2014 trus bx- negative RENAL BIOPSY 12/2013 TRANSURETHRAL RESECTION OF PROSTATE 04/06/2020 Button TURP. [place] UPPER GASTROINTESTINAL ENDOSCOPY 01/02/2016 gasttitis, duodentits, GERD with esophagitis UPPER GASTROINTESTINAL ENDOSCOPY 08/22/[address] Bernard, no BE , gastritis, duodenitis and esophagus WISDOM TOOTH EXTRACTION Family History Problem Relation Name Age of Onset Bleeding Prob Other Diabetes Maternal Grandmother Colon cancer Sister 70.00 Colon cancer Brother Tucker 70.00 Prostate cancer Father Lung cancer Father Heart failure Mother Heart disease Mother Social History Tobacco Use Smoking status: Former Packs/day: 1.00 Types: Cigarettes Start date: 07/08/1962 Quit date: 07/26/1981 Years since quittin.4 Smokeless tobacco: Never Substance Use Topics Alcohol use: No Alcohol/week: 0.0 standard drinks of alcohol Current Outpatient Medications Medication Sig Dispense Refill albuterol 108 (90 Base) MCG/ACT inhaler Inhale 2 puffs every 6 hours as needed. azaTHIOprine (Imuran) 50 MG tablet TAKE 2 TABLETS BY MOUTH ONCE DAILY calcitriol (Rocaltrol) 0.25 MCG capsule Take 1 capsule by mouth in the morning and 1 capsule at noon and 1 capsule before bedtime. cholecalciferol (Vitamin D-3) 1.25 MG (26175 UT) capsule Take by mouth. gabapentin (Neurontin) 100 MG capsule Take 2 capsules by mouth Nightly. metoprolol tartrate (Lopressor) 25 MG tablet Take 1 tablet by mouth in the morning and 1 tablet before bedtime. nystatin (Mycostatin) 008977 UNIT/ML suspension omeprazole (PriLOSEC) [address] capsule Take 1 capsule (40 mg) by mouth daily. 90 capsule 3 oxybutynin XL (Ditropan-XL) 10 MG 24 hr tablet Take 10 mg by mouth daily. oxyCODONE-acetaminophen (Percocet) 5-325 MG tablet TAKE 1 TABLET BY MOUTH EVERY 8 HOURS NEEDED FOR PAIN FOR 30 DAYS sulfamethoxazole-trimethoprim (Bactrim) 400-80 MG tablet Take 1 tablet by mouth in the morning. aspirin 81 MG EC tablet Take 81 mg by mouth in the morning. clotrimazole-betamethasone (Lotrisone) cream Apply topically 2 times daily. fluticasone (Flonase) 50 MCG/ACT nasal spray Administer 2 sprays into affected nostril(s) in the morning. Patiromer Sorbitex Calcium 8.4 g pack Take 8.4 g by mouth. sodium bicarbonate 650 MG tablet Take 1 tablet by mouth in the morning and 1 tablet at noon and 1 tablet before bedtime. tamsulosin (Flomax) 0.4 MG 24 hr capsule Take 1 capsule by mouth in the morning. triamcinolone (Kenalog) 0.1 % ointment Apply topically 2 times daily. No current facility-administered medications for this visit. Allergies Allergen Reactions Aspirin Other Cannot have due to kidney disease Other reaction(s): cannot take d/t Zach's Vasculitis Kidney issues Other Other reaction(s): Other: See Comments Sneezing, itchy and watery eyes PHYSICAL EXAM BP 133/77 (BP Location: Right arm, Patient Position: Sitting, BP Cuff Size: Large adult) Pulse 91 Temp 37 C (98.6 F) (Temporal) Ht 5' 8" (1.727 m) Wt 210 lb (95.3 kg) BMI 31.93 kg/m Physical Exam Constitutional: Appearance: Normal appearance. She is not ill-appearing. HENT: Head: Normocephalic and atraumatic. Mouth/Throat: Mouth: Mucous membranes are moist. Eyes: Pupils: Pupils are equal, round, and reactive to light. Cardiovascular: Rate and Rhythm: Normal rate and rhythm. No murmur Pulses: Normal pulses. Pulmonary: Effort: Pulmonary effort is normal. Breath sounds: decreased breath sounds bilaterally. CTAB Abdominal: General: Obese, there is no distension. Palpations: Abdomen is soft. There is no mass. +diastasis Tenderness: There is no rebound. Musculoskeletal: General: No tenderness. Normal range of motion. No edema. Ecchymosis LUE at AV fistula site Skin: General: Skin is warm and dry. Psychiatric: Behavior: Behavior normal. no hernias found on exam LABORATORY STUDIES AND IMAGING Laboratory Studies: No results for input(s): NA, K, CL, CO2, BUN, CREATININE, GLUCOSE, CALCIUM in the last 72 hours. No results for input(s): WBC, RBC, HGB, HCT, MCV, MCH, MCHC, RDW, PLT, MPV in the last 72 hours. No results for input(s): ALKPHOS, ALT, AST, PROT, BILITOT, BILIDIR, LIPASE in the last 72 hours. No lab exists for component: LABALBU Imaging Studies: None ASSESSMENT End Stage Renal Disease requiring renal replacement therapy Based on today's evaluation, the patient is a candidate for laparoscopic placement of CAPD catheterand omentopexy. PLAN Proceed with laparoscopic placement of CAPD catheter and omentopexy with Dr. Elroy Thomas on 12/31/22. Medical risk stratification by the PAT clinic and primary care physician Additional work-up and pre-op testing: K+ level pre-op on the day of surgery Additional orders and instructions: Instruct patient to make appointment with dialysis center for flushing within 5 days after surgery. We discussed the possibility of the risk of surgery including bleeding, injury to surrounding organs, conversion to open, poor catheter function, risk of post- op infection, the possible need for re-operation, the possibility of post-op ileus, the risks of general anesthetic including IN, CVA, sudden or even reaction to anesthetic medications. The patient understands the risks, any and all questions were answered to the patient's satisfaction. ATTESTATION I personally interviewed and examined the patient. I have reviewed their past medical, surgical, medication, allergy, social and family histories. I have performed an independent physical examinationand have reviewed all pertinent laboratory and imaging results. I have reviewed with the patient myassessment of their condition as well as the treatment recommendations and the associated risks, benefits and options. I have spent a total of 30 minutes for this office visit in [id number] discussion, counseling of this patient, reviewing medical records and documenting the encounter. Y THOMAS MD, FACS, [facility] - Weight Management [employer] - [facility] and Bariatric Surgery Fellowship ---[facility]--- Patient Care Team: Rahel Mendez MD as PCP - General hf documented in this encounterSAdena Regional Medical [id number] Telephone encounter Note* Telephone Encounter - Niurka Hall MA - 12/12/2022 8:07 AM EDT I spoke with patients daughter, She states she will contact nephrology and call us when patient is ready to schedule. FYI [id number] Miscellaneous Notes* Telephone Encounter - Niurka Hall MA - 12/12/2022 8:07 AM EDT I spoke with patients daughter, She states she will contact nephrology and call us when patient is ready to schedule. FYI * Telephone Encounter - Sherri Rodriguez PA-C - 12/10/2022 4:[address] Pacheco is patient's home health administrator so if he is clearing him, then he can be evaluated by Dr Thomas. Patient's daughter cancelled appt until patient was evaluated for MRSA * Telephone Encounter - Lacey Collins - 12/10/2022 3:[address] Gallego's office called and states that they spoke the [employer] and was informed that due to the level of mcclelland patient has is so small that he would not be treated and that he can have surgery. Their number is [phone] and [employer] pager number is [phone] I spoke to Mohan and she said per Sherri to cancel but Dr Gallego's office garcia not want it cancelled * Telephone Encounter - Mohan Simms MA - 12/02/2022 10:52 AM EDT Pt 's daughter called in saying that pt's PCP says that he has mcclelland and is canceling his appt. I told her to back once he is done with his treatment for mcclelland. She states understanding documented in [facility]Sp[facility] [id number] Telephone encounter Note* Telephone Encounter - Sherri Rodriguez PA-C - 12/10/2022 4:[address] Pacheco is patient's home health administrator so if he is clearing him, then he can be evaluated by Dr Thomas. Patient's daughter cancelled appt until patient was evaluated for MRSA WhatsApp Phone: [phone] Telephone encounter Note* Telephone Encounter - Lacey Collins - 12/10/2022 3:[address] Gallego's office called and states that they spoke the [employer] and was informed that due to the level of mcclelland patient has is so small that he would not be treated and that he can have surgery. Their number is [phone] and [employer] pager number is [phone] I spoke to Mohan and she said jennifer Sherri to cancel but Dr Gallego's office garcia not want it cancelled [facility] [id number] Telephone encounter Note* Telephone Encounter - Mohan Simms MA - 12/02/2022 10:52 AM EDT Pt 's daughter called in saying that pt's PCP says that he has mcclelland and is canceling his appt. I told her to back once he is done with his treatment for mcclelland. She states understanding [facility] [id number] NoteHNO ID: [id number] Author: Ilene Vasques APRN.WHEEL SETTER Service: ? Author Type: Nurse Practitioner Type: Progress Notes Filed: 12/01/2022 11:56 AM Note Text: Subjective Sore Throat Pertinent negatives include no congestion, coughing, ear pain or headaches. Franklin Burton is a 77 year old male who presents with a sore mouth and throat. He has had this for 4 days but it got much worse last night. He states his mouth is very dry and his tongue felt swollen last night. He has used a sore throat spray at home without relief. He denies fever or any associated URI symptoms. Review of Systems Constitutional: Negative for chills and fever. HENT: Positive for sore throat. Negative for congestion and ear pain. See HPI Respiratory: Negative for cough. Cardiovascular: Negative. Musculoskeletal: Negative. Neurological: Negative for headaches. BP 110/70 Pulse 63 Temp 37.1 ?C (98.8 ?F) Resp 18 Wt 96.6 kg (213 lb) SpO2 97% BMI 34.38 kg/m? No past medical history on file. PAST SURGICAL HISTORY Procedure Laterality Date KNEE ARTHROSCOPY/SURGERY 1988 Left knee-St ALLERGIES Aspirin and Seasonal Allergies MEDICATIONS gabapentin (NEURONTIN) 100 mg capsule TAKE 2 CAPSULES BY MOUTH ONCE DAILY AT BEDTIME FOR 90 DAYS oxyCODONE-acetaminophen (PERCOCET) 5-325 mg tablet TAKE 1 TABLET BY MOUTH EVERY 8 HOURS NEEDED FOR PAIN FOR 30 DAYS metoprolol tartrate, short acting, 25 mg tablet Take 0.5 tablets by mouth twice daily. omeprazole (PRILOSEC) 20 mg capsule Take 1 capsule by mouth daily before breakfast. 1/2 hr before meal. (Patient taking differently: Take 40 mg by mouth daily before breakfast. 1/2 hr before meal.) nystatin (MYCOSTATIN) 100,000 unit/mL suspension Take 5 mL by mouth four times daily for 14 days. 1tsp swish in mouth for several minutes, then swallow (or expectorate) 4 times daily until gone. albuterol HFA (PROAIR HFA) 90 mcg/actuation inhaler Inhale 2 Puffs as instructed every 4 hours as needed. (Patient not taking: Reported on 12/01/2022) codeine-guaiFENesin 10-100 mg/5 mL syrup Take 5-10 mL by mouth four times daily as needed for Cough. May cause drowsiness. (Patient not taking: Reported on 12/01/2022) zolpidem (AMBIEN) 5 mg tablet Take 1 tablet by mouth at bedtime as needed for Sedation. (Patient not taking: Reported on 12/01/2022) predniSONE 10 mg tablet Take 40 mg po daily with food. (Patient not taking: Reported on 12/01/2022) aspirin, enteric coated (ASPIR-LOW) 81 mg EC tablet Take 1 tablet by mouth once daily. (Patient not taking: Reported on 12/01/2022) predniSONE 20 mg tablet Take 1 tablet by mouth twice daily. (Patient not taking: Reported on 12/01/2022) tamsulosin 0.4 mg cp24 Take 0.4 mg by mouth once daily. (Patient not taking: Reported on 12/01/2022) aspirin 325 mg tablet Take 325 mg by mouth every 6 hours as needed. For pain (Patient not taking: Reported on 12/01/2022) FAMILY HISTORY Problem Relation Age of Onset Prostate Cancer Father Heart Mother Diabetes Maternal Grandmother Diabetes Paternal Grandmother Social History Tobacco Use Smoking status: Former Types: Cigarettes Quit date: 05/19/1981 Years since quittin.5 Substance Use Topics Alcohol use: No Drug use: No Objective Physical Exam Vitals and nursing note reviewed. Constitutional: Appearance: Normal appearance. HENT: Mouth/Throat: Lips: [place]. Mouth: Mucous membranes are dry. Pharynx: Posterior oropharyngeal erythema present. Cardiovascular: Rate and Rhythm: Normal rate and regular rhythm. Heart sounds: Murmur heard. Pulmonary: Effort: Pulmonary effort is normal. No respiratory distress. Breath sounds: Normal breath sounds. No wheezing or rales. Neurological: Mental Status: He is alert. ASSESSMENT/PLAN: 1. Sore throat - ICD9: 462, ICD10: J02.9 (primary diagnosis) - Alere Strep Test negative, no culture pending - Discussed supportive care treatment with fluids, rest and analgesia. - STREP A MOLECULAR (POC) 2. Thrush (oral) - ICD9: 112.0, ICD10: B37.0 - NYSTATIN 100,000 UNIT/ML ORAL SUSPENSION - likely due to recent antibiotic use. - Follow-up with your PCP in 3-5 days if symptoms have not improved or sooner if symptoms worsen - Discussed red flags and need for immediate medical evaluation if any occur. - Discussed supportive care treatment with fluids, rest and analgesia. - Discussed expected course of illness Ilene Vasques APRN.[facility]07-16-2023 History of Present illness Narrative* Ilene Vasques APRN.WHEEL SETTER - 12/01/2022 11:49 AM EDT Images from the original note were not included. Subjective Sore Throat Pertinent negatives include no congestion, coughing, ear pain or headaches. Franklin Burton is a 77 year old male who presents with a sore mouth and throat. He has had this for 4 days but it got much worse last night. He states his mouth is very dry and his tongue felt swollen last night. He has used a sore throat spray at home without relief. He denies fever or any associated URI symptoms. Review of Systems Constitutional: Negative for chills and fever. HENT: Positive for sore throat. Negative for congestion and ear pain. See HPI Respiratory: Negative for cough. Cardiovascular: Negative. Musculoskeletal: Negative. Neurological: Negative for headaches. BP 110/70 Pulse 63 Temp 37.1 C (98.8 F) Resp 18 Wt 96.6 kg (213 lb) SpO2 97% BMI 34.38 kg/m No past medical history on file. PAST SURGICAL HISTORY Procedure Laterality Date KNEE ARTHROSCOPY/SURGERY 1988 Left knee-St ALLERGIES Aspirin and Seasonal Allergies MEDICATIONS gabapentin (NEURONTIN) 100 mg capsule TAKE 2 CAPSULES BY MOUTH ONCE DAILY AT BEDTIME FOR 90 DAYS oxyCODONE-acetaminophen (PERCOCET) 5-325 mg tablet TAKE 1 TABLET BY MOUTH EVERY 8 HOURS NEEDED FOR PAIN FOR 30 DAYS metoprolol tartrate, short acting, 25 mg tablet Take 0.5 tablets by mouth twice daily. omeprazole (PRILOSEC) 20 mg capsule Take 1 capsule by mouth daily before breakfast. 1/2 hr before meal. (Patient taking differently: Take 40 mg by mouth daily before breakfast. 1/2 hr before meal.) nystatin (MYCOSTATIN) 100,000 unit/mL suspension Take 5 mL by mouth four times daily for 14 days. 1tsp swish in mouth for several minutes, then swallow (or expectorate) 4 times daily until gone. albuterol HFA (PROAIR HFA) 90 mcg/actuation inhaler Inhale 2 Puffs as instructed every 4 hours as needed. (Patient not taking: Reported on 12/01/2022) codeine-guaiFENesin 10-100 mg/5 mL syrup Take 5-10 mL by mouth four times daily as needed for Cough. May cause drowsiness. (Patient not taking: Reported on 12/01/2022) zolpidem (AMBIEN) 5 mg tablet Take 1 tablet by mouth at bedtime as needed for Sedation. (Patient not taking: Reported on 12/01/2022) predniSONE 10 mg tablet Take 40 mg po daily with food. (Patient not taking: Reported on 12/01/2022) aspirin, enteric coated (ASPIR-LOW) 81 mg EC tablet Take 1 tablet by mouth once daily. (Patient nottaking: Reported on 12/01/2022) predniSONE 20 mg tablet Take 1 tablet by mouth twice daily. (Patient not taking: Reported on 12/01/2022) tamsulosin 0.4 mg cp24 Take 0.4 mg by mouth once daily. (Patient not taking: Reported on 12/01/2022) aspirin 325 mg tablet Take 325 mg by mouth every 6 hours as needed. For pain (Patient not taking: Reported on 12/01/2022) FAMILY HISTORY Problem Relation Age of Onset Prostate Cancer Father Heart Mother Diabetes Maternal Grandmother Diabetes Paternal Grandmother Social History Tobacco Use Smoking status: Former Types: Cigarettes Quit date: 05/19/1981 Years since quittin.5 Substance Use Topics Alcohol use: No Drug use: No Objective Physical Exam Vitals and nursing note reviewed. Constitutional: Appearance: Normal appearance. HENT: Mouth/Throat: Lips: [place]. Mouth: Mucous membranes are dry. Pharynx: Posterior oropharyngeal erythema present. Cardiovascular: Rate and Rhythm: Normal rate and regular rhythm. Heart sounds: Murmur heard. Pulmonary: Effort: Pulmonary effort is normal. No respiratory distress. Breath sounds: Normal breath sounds. No wheezing or rales. Neurological: Mental Status: He is alert. ASSESSMENT/PLAN: 1. Sore throat - ICD9: 462, ICD10: J02.9 (primary diagnosis) - Alere Strep Test negative, no culture pending - Discussed supportive care treatment with fluids, rest and analgesia. - STREP A MOLECULAR (POC) 2. Thrush (oral) - ICD9: 112.0, ICD10: B37.0 - NYSTATIN 100,000 UNIT/ML ORAL SUSPENSION - likely due to recent antibiotic use. - Follow-up with your PCP in 3-5 days if symptoms have not improved or sooner if symptoms worsen - Discussed red flags and need for immediate medical evaluation if any occur. - Discussed supportive care treatment with fluids, rest and analgesia. - Discussed expected course of illness Ilene Vasques APRN.MIGDALIA documented in this encounterCleveland [facility]07-16-2023 Instructions* Patient Instructions* Ilene Vasques APRN.CNP - 12/01/2022 11:48 AM EDT ASSESSMENT/PLAN: 1. Sore throat - ICD9: 462, ICD10: J02.9 (primary diagnosis) - Alere Strep Test negative, no culture pending - Discussed supportive care treatment with fluids, rest and analgesia. - STREP A MOLECULAR (POC) 2. Thrush (oral) - ICD9: 112.0, ICD10: B37.0 - NYSTATIN 100,000 UNIT/ML ORAL SUSPENSION - likely due to recent antibiotic use. - Follow-up with your PCP in 3-5 days if symptoms have not improved or sooner if symptoms worsen - Discussed red flags and need for immediate medical evaluation if any occur. - Discussed supportive care treatment with fluids, rest and analgesia. - Discussed expected course of illness Ilene Vasques APRN.CNP documented in this encounterCleveland Clinic Medina Hospital06-24-2023 [facility]WSt[facility]2023 Procedure [facility]02-07-2023 History and physical note Author Dr. Davidson [place] June 25, 2022 8:36am Note Date/Time June 25, 2022 8 :36am [facility] Medical Records Department [address] [place] [address] History & Physical Exam 06/25/22 0836 MR#: [id number] Acct: [id number] Name: FRANKLIN BURTON Rep #:[id number] : 1945 76 From: Julio Davidson MD PCP: Dr. Matilde Noguera MD Status:[facility] Location: [place] [address] History and Physical Date of Admission: 06/25/22 Visit Reasons:?COLONOSCOPY Chief Complaint: colonscopy Is patient in pain?: No Allergies aspirin Adverse Reaction (Severe, Verified 06/14/22 09:06) cannot take d/t Zach's Vasculitis Medications metoprolol tartrate 25 mg tablet 25 mg PO BID BP 05/28/18 [History Confirmed 06/14/22] omeprazole 40 mg capsule,delayed release 40 mg PO DAILY stomach 11/04/18 [History Confirmed 06/14/22] sodium bicarbonate 650 mg tablet 1 tab PO TID supplement & stomach 12/11/19 [History Confirmed 06/14/22] azathioprine 50 mg tablet 100 mg PO DAILY chemo 11/04/20 [History Confirmed 06/14/22] sulfamethoxazole 400 mg-trimethoprim 80 mg tablet (Bactrim) 1 tab PO DAILY infection 11/04/20 [History Confirmed 06/14/22] clotrimazole 10 mg chuy 10 mg mucous membrane TID 02/13/22 [History Confirmed 06/14/22] gabapentin 100 mg capsule 200 mg PO QHS neuropathy 02/13/22 [History Confirmed 06/14/22] oxycodone-acetaminophen 5 mg-325 mg tablet 1 tab PO .Q6 PRN PRN Pain 02/13/22 [History Confirmed 01/27/23] patiromer calcium sorbitex 8.4 gram oral powder packet ([place]) 8.4 g PO DAILY02/13/22 [History Confirmed 06/14/22] PFS Medical History?(Updated 06/14/22 @ 05:[address] Julio Davidson MD) Abnormal stress echo BPH (benign prostatic hyperplasia) Chest pain Chronic kidney disease, stage 3 (moderate) Chronic systolic heart failure Claudication Essential hypertension Former smoker GERD (gastroesophageal reflux disease) Hard of hearing History of tobacco use Irregular heart beat Obstructive sleep apnea Prediabetes Rheumatoid arthritis Shortness of breath Zach's granulomatosis Surgical History? AV fistula Cataract extraction status H/O arthroscopy of left knee (1988) History of colonoscopy History of endoscopy (01/02/16) History of left heart catheterization (11/12/18) History of prostate biopsy (01/11/14) History of total right hip arthroplasty (02/05/16) S/P arthroscopic surgery of left knee (1989) S/P TURP Status post biopsy of kidney (12/2013) Family History? Mother CAD (coronary artery disease) Congestive heart failureFather Prostate cancer Lung cancerBrother Colon cancerSister Colon cancerGrandmother Diabetes Social History? household members:? spouse housing:? house 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 status:? 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 Former smoker quit date: 07/26/81 pack-years: 19 Electronic Cigarette Use:? not used alcohol intake:? never substance use type:? does not use what type of physical activity do you participate in:? none seatbelt use:? always do you feel safe at home:? Yes HPI HPI HPI: 76-year-old gentleman who is being referred by Dr. Beti Noguera for surgical consultation regarding a screening colonoscopy and a written copy of my surgicalconsult recommendations will return to her.? 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 He does take omeprazole for heartburn symptoms.? The patient has chronic pain issues and is on chronic narcotics.? He does have a history of sleep apnea.? The patient has a family history of colon cancer in her brother and his sister. The patient has Zach's granulomatosis.? He was treated with steroids which cause diabetes and fluid retention and congestive heart failure.? He was not felt to survive that.? Subsequently he stabilized to the point where he is not yet on hemodialysis.? About a year ago he had a left upper arm brachiocephalic arteriovenous hemodialysis fistula created has not been utilized.? Is functioning well. The timing of any previous colonoscopy is indeterminate.? He is being referred for screening examination. The patient has symptoms of gastroesophageal reflux disease and has been on long-term omeprazole therapy. ROS General General: Yes fatigue; No weight change, appetite, colon cancer, breast cancer or weakness HEENT HEENT: Yes eye surgery; No difficulty swallowing, eye injury, swollen glands or hoarseness Endo Endocrine: No thyroid disease, diabetes mellitus, thyroid cancer, Hair loss, heat intolerance or cold intolerance Skin Skin: No rash or changing moles Musc Musculoskeletal: No back problems, arthritis, rheumatoid arthritis, gout or joint pain Cardio Cardiovascular: Yes heart disease and high blood pressure; No murmur, pacemaker, atrial fibrillation, heart attack, heart stent, palpitations, shortness of breat with exertion or chest pain Psych Psychiatric: No depression, anxiety or hearing voices Resp Respiratory: No shortness of breath, No sleep apnea, No cough, No COPD, No asthma, No emphysema and No wheezing Gastro Gastrointestinal: No abdominal pain, No nausea or vomiting, No diarrhea, Yes constipation, No blood in stool, Yes acid reflux, No hemorrhoids, No ulcers, No gallbladder problem and No black,tarry stools Héctor Hematologic: No blood thinners, No blood disorders, No bleeding, No anemia and No blood clots Neuro Neurologic: No system reviewed and no additional complaints, except as documented, No as per HPI, No abnormal gait, No abnormal hearing, No abnormal movements, No abnormal speech, No behavioral changes, No burning sensations, No confusion, No convulsions, No disequilibrium, No dizziness, No localized weakness, No frequent falls, No headache(s), No lack of coordination, No loss ofvision, No memory loss, No numbness, No other visual disturbances, No radicular pain, No restless legs, No sensory deficit, No syncope, No tingling, No tremor(s), No weakness and No other Exam Const General: cooperative, comfortable and no acute distress Other: Hard of hearing HENMT Head: normal to inspection Eyes General: appearance normal, both eyes and all related structures Resp Effort & Inspection: normal respiratory effort Auscultation: clear to auscultation bilaterally Cardio Rate: regular rate Rhythm: regular rhythm Other: 2/6 systolic ejection murmur GI Other: Soft, mildly overweight, nontender Skin General: no rashes or lesions noted Neuro General: patient alert, patient awake and patient oriented x3 Other: Hard of hearing Extrem Other: 2+ bilateral extremity edema Psych Appearance: grossly normal Assessment and Plan Assessment and Plan (1) GERD (gastroesophageal reflux disease): ?Status:?Acute (2) Family history of malignant neoplasm of colon: ?Status:?Acute ?Plan: 76-year-old gentleman.? I do concur that with a personal history of colon polypsthat a follow-up colonoscopy would pertinent.? He currently is not yet on hemodialysis and has been relatively stable. He also has gastroesophageal reflux disease symptoms.? I have offered him consideration for combining an esophagogastroduodenoscopy at that same setting. He has declined this offer He has had an opportunity ask and have questions answered.? We will proceed at his discretion. Copy: Dr. Beti Davidson M.D., F.A.C.S I have examined the patient and the H&P has been reviewed. There are no clinicalchanges since date of exam. Julio Davidson M.D., F.A.C.S. 06/25/22 0836 <Electronically signed by Julio Davidson MD> Cosigner Signature (if applicable): CC: Dr. Matilde Noguera MD; Dr. Julio Davidson MD~ Signed [place] Work Phone: [phone] 552-576312-08-2020 NoteEmergency Medicine Attending Note I performed a history and physical examination on this patient and discussed the management plans with the security professionals. History 74 year old male complains of generalized weakness over the last 2-3 days. He has had a low-grade fever. States 10 days ago he had a prostate surgery. He states over the last few weeks his Zach's granulomatosis has worsened. No cough. Always has pain on urination. Denies chest pain exposure to Doss it or shortness of breath. Able to move his arms and legs. Exam Low grade fever nontoxic no focal motor or sensory weakness Electrocardiogram sinus rhythm, rate 86, PVC, axis normal, intervals normal, no ST-T wave or acute ischemic changes; impression PVC otherwise normal electrocardiogram; when compared to 03/14/2020 there is been no significant interval change Medical Decision Making / ED Course weakness most likely related to his urinary tract infection. No evidence of urinary retention on post void residual. No evidence of systemic spread of his infection. No evidence of myocardial ischemia or stroke. Hemoglobin and creatinine both abnormal but ultimately unchanged compared to previous. Care coordination with urology and pharmacy. Discussed options of inpatient treatment because of his impaired renal function versus outpatient treatment because of high Covid burden in the hospital. Patient appears competent and to understand the risks and benefits. After shared decision making patient elects to go home. He is aware he may return at any time. He was ambulatory without difficulty in the emergency department Impression urinary tract infection Zach's granulomatosis Plan antibiotics and outpatient follow up (Please note that portions of this note may have been completed with a voice recognition program. Efforts were made to edit the dictations but occasionally words are mis-transcribed.) MD Cornel Chu MD 04/25/[address] [place], [place] [id number] Note48 Hour Discharge Summary Note Patient ID: Franklin Burton [id number] 74 y.o. 1945 Admit date: 04/06/2020 Discharge date: 04/07/20 Admitting Physician: Bravo Zarco MD Discharge Physician: Juan Hernandez MD Consults: none Admission Diagnoses: BPH with urinary obstruction [N40.1, N13.8] BPH with urinary obstruction [N40.1, N13.8] Procedure: Cystoscopy, TURP Treatment: surgery: see above Pertinent Findings and Labs noted during admission: see Epic Significant Diagnostic Studies: N/A Discharge Diagnoses: BPH with urinary obstruction [N40.1, N13.8] BPH with urinary obstruction [N40.1, N13.8] Discharged Condition: good Homegoing Instructions: activity as tolerated Recommended Follow-up: Follow up with Dr. Zarco Diet: regular diet Discharge Medications: Franklin Burton Home Medication Instructions TIM:[id number] Printed on:04/07/20716 Medication Information albuterol sulfate HFA 108 (90 BASE) MCG/ACT inhaler Inhale 2 puffs into the lungs every 6 hours as needed for Wheezing budesonide (PULMICORT) 0.5 MG/2ML nebulizer suspension Take 2 mLs by nebulization 2 times daily Add 1 ampule into saline nasal rinse per use cephALEXin (KEFLEX) 500 MG capsule Take 1 capsule by mouth 2 times daily clotrimazole-betamethasone (LOTRISONE) 1-0.05 % cream Apply topically 2 times daily. fluticasone (FLONASE) 50 MCG/ACT nasal spray 2 sprays by Nasal route daily gabapentin (NEURONTIN) 100 MG capsule Take 1 capsule by mouth 3 times daily for 180 days. insulin glargine (LANTUS) 100 UNIT/ML injection vial Inject 5 Units into the skin every morning metoprolol tartrate (LOPRESSOR) 25 MG tablet Take 1 tablet by mouth 2 times daily Misc. Devices MISC Shower chair. Use prn bathing. mupirocin (BACTROBAN) 2 % ointment Add 1/2 inch in nasal rinse per application omeprazole (PRILOSEC) 40 MG delayed release capsule TAKE 1 CAPSULE BY MOUTH ONCE DAILY oxyCODONE-acetaminophen (PERCOCET) 5-325 MG per tablet Take 1 tablet by mouth every 12 hours as needed for Pain for up to 14 days. Intended supply: 14 days. Take lowest dose possible to manage pain sodium bicarbonate 650 MG tablet Take 1 tablet by mouth 2 times daily sulfamethoxazole-trimethoprim (BACTRIM;SEPTRA) 400-80 MG per tablet Take 1 tablet by mouth daily tamsulosin (FLOMAX) 0.4 MG capsule Take 1 capsule by mouth 2 times daily [facility] for [facility] Narrative* Chief Complaint COVID, WEAKNESS, CON FUSION Reason for Visit COVID-19 Encephalopathy acute Weakness Hyperkalemia Chronic kidney failure [place] Work Phone: Consult note [facility] November 09, 2022 8:01am Note Date/Time November 09, 2022 8:01 am [facility] Medical Records Department [address] [place] [address] Consultation - Urology 11/09/22 0758 MR#: [id number] Acct: [id number] Name: FRANKLIN BURTON Rep #:[id number] : 1945 77 From: Kael Decker MD PCP: Dr. Matilde Noguera MD Status:REG ER Location: ED Assessment & Plan Assessment/Plan (1) BPH (benign prostatic hyperplasia): PLAN: Plan to do cystoscopy and Osorio placement (2) Acute urinary retention: HPI Consult Data Date of Consult: 11/09/22 HPI Narrative Reason for Consultation: Retention of urine gross hematuria HPI Narrative: FRANKLIN BURTON, is a 77 M who presents to the emergency room he typically self caths to empty his bladder he is on dialysis but still makes plenty of urine last night he was not able to catheterize himself developed retention of urine and could not catheterize himself came to the emergency room and the nursing staff tried a few times carefully to place a catheter but there was still unsuccessful so I was called in. When I saw the patient I tried to catheterize him as well advance an 18 Czech catheter through the urethra and then somewherein the prostate the catheter was not getting into the bladder did not force it remove the catheter I tried to place a wire x2 with no success so we will have to do a surgical procedure to place a catheter. [facility] Medical History Abnormal stress echo Anemia Arthritis Back pain BPH (benign prostatic hyperplasia) Cardiology follow-up encounter Chest pain Chronic kidney disease, stage 3 (moderate) Chronic systolic heart failure Claudication Essential hypertension Former smoker Gastric reflux GERD (gastroesophageal reflux disease) Hard of hearing History of CHF (congestive heart failure) History of echocardiogram History of edema History of renal disease History of tobacco use Irregular heart beat Neuropathy Normal stress echocardiogram Obstructive sleep apnea Prediabetes Prostate disease Rheumatoid arthritis Shortness of breath Wears dentures Wears glasses Wears hearing aid Zach's granulomatosis Home Medications metoprolol tartrate 25 mg tablet 25 mg PO BID BP 05/28/18 [History Last Taken 06/25/22] omeprazole 40 mg capsule,delayed release 40 mg PO DAILY stomach 11/04/18 [History Last Taken 01/18/22] gabapentin 100 mg tablet 200 mg PO QHS 08/29/22 [History Last Taken Unknown] handicap placard #1 ea 08/29/22 [Rx Last Taken Unknown] leg brace (ANDRÉS Ankle Brace) #1 ea 08/29/22 [Rx Last Taken Unknown] oxycodone-acetaminophen 5 mg-325 mg tablet 1 tab PO Q8H PRN Pain 30 days #90 tabs 11/04/22 [Rx Last Taken Unknown] Allergy/AdvReac Type Severity Reaction Status Date / Time aspirin AdvReac Severe cannot Verified 08/29/22 09:56 take d/t Zach's Vasculitis Family History Mother CAD (coronary artery disease) Congestive heart failure Father Prostate cancer Lung cancer Brother Colon cancer Sister Colon cancer Grandmother Diabetes Surgical History AV fistula Cataract extraction status H/O arthroscopy of left knee (1988) History of colonoscopy History of endoscopy (01/02/16) History of left heart catheterization (11/12/18) History of prostate biopsy (01/11/14) History of total right hip arthroplasty (02/05/16) Hx of bilateral cataract extraction S/P arthroscopic surgery of left knee (1989) S/P TURP Status post biopsy of kidney (12/2013) Social History household members: spouse housing: house 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 Status: Former smoker quit date: 07/26/81 pack-years: 19 Electronic Cigarette Use: not used alcohol intake: never substance use type: does not use what type of physical activity do you participate in: none seatbelt use: always do you feel safe at home: Yes ROS Constitutional Constitutional: Denies chills, fever(s) or malaise Eyes Eyes: Denies blurry vision or change in vision ENT HEENT: Reports none Cardiovascular Cardiovascular: Denies chest pain or palpitations Respiratory/Chest Respiratory/Chest: Denies cough or shortness of breath with exertion Gastrointestinal Gastrointestinal: Denies abdominal pain, constipation or diarrhea Musculoskeletal Musculoskeletal: Denies back pain, joint stiffness or joint swelling Integumentary Integumentary: Denies dry skin, jaundice, lesions or rash Neurologic Neurologic: Denies confusion, syncope or weakness Psychiatric Psychiatric: Reports none; Denies anxiety or depression Endocrine Endocrinology: Denies excessive sweating, fatigue or flushing Hematologic/Lymphatic Hematologic/Lymphatic: Denies anemia, easy bleeding or easy bruising Physical Exam Const alert and oriented x3 General Appearance: cooperative HEENT normocephalic, head/scalp atraumatic, EAC's normal and TM's normal bilaterally Eyes PERRL and EOMs intact bilaterally Pupil: sluggish Neck no lymphadenopathy, supple and no JVD General: trachea midline Lymph Lymphatic: no lymphadenopathy noted, lymphedema and lymphadenopathy Resp normal respiratory effort, normal air movement and clear to auscultation bilaterally Cardio regular rate, regular rhythm and peripheral pulses 2+ throughout GI soft to palpation, non-tender and non-distended Narrative: Uncircumcised penis normal Epididymis: Right: Normal and Left: Normal Extremity normal capillary refill and no clubbing, cyanosis or edema General Extremity: no tenderness to palpation of joints or extremities Skin no rashes or lesions noted General Skin Exam: turgor normal Lesions: no lesions Rashes: no rashes Neuro CN's II-XII intact bilaterally Speech: speech normal Motor Exam: strength 5/5 throughout; Negative for general weakness Psych thought process normal, cooperative and affect normal Appearance: appropriate 11/09/22 0801 <Electronically signed by Kael Decker MD> Cosigner Signature (if applicable): CC: Dr. Matilde Noguera MD~ Signed [place] Work Phone: Discharge summary Author Beau Cardenas [place] November 27, 2022 6:18am Note Date/Time November 27, 2022 6:06 am [facility] Medical Records Department [address] [place] [address] Emergency Department Summary 11/27/22 MR#: [id number] Acct: [id number] Name: FRANKLIN BURTON Jin Rep #:[id number] : 1945 77 From: Beau Cardenas DO PCP: Dr. Matilde Noguera MD Status:REG ER Location: ED HPI History of Present Illness Chief Complaint: Complaint Informant: patient and spouse/S.O. Narrative Narrative: Patient is a 77-year-old male with past medical history of end-stage renal disease on dialysis however he still makes urine. He also has history of systolic heart failure hypertension and Zach's granulomatosis. Patient was seen in the ER a few weeks ago secondary to acute urinary retention and had a Osorio catheter placed. He had the catheter kept in since that time and it was removed 2 days ago. Patient states that after the catheter was removed he has been able to urinate small amounts but he does not feel he has been "completely emptying his bladder." He reports that he believes he last had a small amount of urination last night November 26 around 9 PM. However since that time he has been able to sleep as he has had increasing abdominal discomfort and pain and difficulty urinating and therefore comes in for evaluation [facility] Medical History Abnormal stress echo Anemia Arthritis Back pain BPH (benign prostatic hyperplasia) Cardiology follow-up encounter Chest pain Chronic kidney disease, stage 3 (moderate) Chronic systolic heart failure Claudication Essential hypertension Former smoker Gastric reflux GERD (gastroesophageal reflux disease) Hard of hearing History of CHF (congestive heart failure) History of echocardiogram History of edema History of renal disease History of tobacco use Irregular heart beat Neuropathy Normal stress echocardiogram Obstructive sleep apnea Prediabetes Prostate disease Rheumatoid arthritis Shortness of breath Wears dentures Wears glasses Wears hearing aid Zach's granulomatosis Home Medications metoprolol tartrate 25 mg tablet 25 mg PO BID BP 05/28/18 [History Last Taken 06/25/22] omeprazole 40 mg capsule,delayed release 40 mg PO DAILY stomach 11/04/18 [History Last Taken 01/18/22] gabapentin 100 mg tablet 200 mg PO QHS 08/29/22 [History Last Taken Unknown] handicap placard #1 ea 08/29/22 [Rx Last Taken Unknown] leg brace (ANDRÉS Ankle Brace) #1 ea 08/29/22 [Rx Last Taken Unknown] oxycodone-acetaminophen 5 mg-325 mg tablet 1 tab PO Q8H PRN Pain 30 days #90 tabs 11/04/22 [Rx Last Taken Unknown] cephalexin 500 mg capsule 500 mg PO Q12 #14 CAPSULES 11/09/22 [Rx Last Taken Unknown] Allergy/AdvReac Type Severity Reaction Status Date / Time aspirin AdvReac Severe cannot Verified 11/27/22 03:50 take d/t Zach's Vasculitis Family History Mother CAD (coronary artery disease) Congestive heart failure Father Prostate cancer Lung cancer Brother Colon cancer Sister Colon cancer Grandmother Diabetes Surgical History AV fistula Cataract extraction status H/O arthroscopy of left knee (1988) History of colonoscopy History of endoscopy (01/02/16) History of left heart catheterization (11/12/18) History of prostate biopsy (01/11/14) History of total right hip arthroplasty (02/05/16) Hx of bilateral cataract extraction S/P arthroscopic surgery of left knee (1989) S/P TURP Status post biopsy of kidney (12/2013) Social History household members: spouse housing: house 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 Status: Former smoker quit date: 07/26/81 pack-years: 19 Electronic Cigarette Use: not used alcohol intake: never substance use type: does not use what type of physical activity do you participate in: none seatbelt use: always do you feel safe at home: Yes ROS ROS ED Constitutional Constitutional ED: Denies chills or fever(s) ENT ENT ED: Denies sore throat Cardiovascular Cardiovascular: Denies chest pain Respiratory/Chest Respiratory/Chest: Denies cough or dyspnea Gastrointestinal Gastrointestinal: Reports abdominal pain; Denies diarrhea, nausea or vomiting Genitourinary Genitourinary ED: Reports hematuria and other Details: Positive urinary retention Musculoskeletal Musculoskeletal: Denies myalgias Integumentary Denies rash Neurologic Neurologic: Denies headache(s) Hematologic/Lymphatic Hematologic/Lymphatic: Denies easy bleeding or easy bruising EXAM Physical Exam Const Vital Signs: 11/27/22 03:50 Temperature 97.6 F L Temperature Source Temporal Pulse Rate 89 Respiratory Rate 20 H Blood Pressure 151/88 H Blood Pressure Mean 109 Pulse Ox 93 Positive well nourished, well developed and obese General Appearance ED: well developed Nutritional Appearance: obese HEENT Reports moist mucous membranes Eyes PERRL and EOMs intact bilaterally General Eye ED: Negative for scleral icterus Neck supple Resp normal respiratory effort and clear to auscultation bilaterally Cardio regular rate and regular rhythm GI GI Narrative: In the suprapubic/lower midline region there is organomegaly present consistentwith a distended bladder. There is pain on palpation at the site. The upper abdomen is soft and nondistended with normal active bowel sounds. No pulsatile mass Auscultation: normoactive bowel sounds Palpation: soft Narrative: No testicular swelling or masses. No obvious bleeding at the urethral meatus. No surrounding soft tissue changes to suggest Cosme's gangrene Extremity normal to inspection Neuro oriented x3 and CN's II-XII intact bilaterally Sensorium / Orientation: alert Psych mental status grossly normal Skin no rashes or lesions noted MDM MDM MDM Narrative Medical decision making narrative: Patient presented to the ER afebrile with a history and exam consistent with recurrent urinary retention. Secondary to this a Osorio catheter was placed. Upon inserting the Osorio catheter there is a large amount of blood and clots present most likely the reason for the patient's recurrent retention and discomfort. The patient underwent continuous irrigation secondary to this. With irrigation the urine cleared. After irrigation was completed the patient was watched for another 15 to 20 minutes. There was still production of urine however it now was returning to blood-tinged discoloration but was translucent in nature indicating old blood and not an acute bleed. As its only been roughly9 hours since the patient's last urination I felt no need to check laboratory studies as my concern for infection is low and as patient already has end-stage renal disease on dialysis kidney function changes would not change treatment. The patient denies any blood thinner use other than heparin injections after dialysis. At this time patient has no signs of recurrent obstruction and therefore the Osorio catheter will be kept in place. This plan of care was discussed with urology on-call Dr. Decker. He has seen the patient in the past and he does agree with this plan of care and will follow him as an outpatient. He reports that the patient had a stricture at his initial visit and that he fell keeping the catheter in from was 10 days would be sufficient for healing but that as bleeding returned leading to recurrent obstruction but the catheter must stay in longer in order for healing to take place History & Record Review Discussion w/independent historian: Patient and Significant other Discharge Plan Triage Chief Complaint: Complaint ED Provider: Beau Cardenas Dx/Rx/DC Orders Clinical Impression: Acute urinary retention, Zach's granulomatosis, Essential hypertension, End- stage renal disease needing dialysis Prescriptions: No Action omeprazole 40 mg capsule,delayed release(DR/EC) 40 mg PO DAILY gabapentin 100 mg tablet 200 mg PO QHS (DME) ANDRÉS Ankle Brace Misc See Rx Instructions .Route Qty: 1 0RF Rx Instructions: daily (DME) handicap placard See Rx Instructions .ROUTE .MEDSUPPLY Qty: 1 0RF Rx Instructions: Length of time: 5 years Diagnosis: Impaired physical mobility z74.09 metoprolol tartrate 25 MG tablet 25 mg PO BID Patient Comments: Heart medication cephalexin 500 mg capsule 500 mg PO Q12 Qty: 14 0RF oxycodone-acetaminophen 5-325 mg tablet 1 tab PO Q8H PRN (Reason: Pain) 30 Days Qty: 90 0RF Primary Care Provider: Matilde Noguera Referrals: Matilde Noguera MD [Primary Care Provider] - Kael Decker MD [Med Staff - Active Staff] - Activity Restrictions/Additional Instructions: Please contact Dr. Decker's office to schedule a repeat evaluation and if you have any worsening of symptoms or return of obstruction return for repeat evaluation Disposition Disposition: Home, Self Care What to do if you have Problems For any increased pain, shortness of breath, bleeding, nausea or vomiting, chestpain, or any unexpected problems, contact your Primary Care Provider. Call [facility] ([phone]) or report to the closest Emergency Room. Call 911 if necessary. 11/27/22617 <Electronically signed by Beau Cardenas DO> Cosigner Signature (if applicable): CC: Dr. Matilde Noguera MD ~ Signed [place] Work Phone: Evaluation note* Diagnosis Encounter for other preprocedural examination Chronic kidney disease, stage 4 (severe) (HCC) [facility] Work [facility]: [facility] note* Diagnosis Onset Date Resolution Status COVID-19 acute Encephalopathy acute acute Weakness acute Hyperkalemia acute Chronic kidney failure chron ic [place] Work Phone: Evaluation note* Diagnosis Onset Date Resolution Status Chronic neuropathic pain acu te Chronic kidney failure chron ic Chronic systolic heart failure chronic Essential hypertension chron ic Obstructive sleep apnea 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 Prediabetes chronic Zach's granulomatosis chr onic Screening for colon cancer n oneactive Family history of colon cancer noneactive Actinic keratoses noneactive Establishing care with new doctor, encounter for noneactive Heartburn noneactive Left ankle pain noneactive Family history of malignant neoplasm of colon acute GERD (gastroesophageal reflux disease) acute [place] Work Phone: Evaluation note* Diagnosis Onset Date Resolution Status Chronic neuropathic pain acu te Chronic kidney failure chron ic Chronic systolic heart failure chronic Essential hypertension chron ic Obstructive sleep apnea 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 Prediabetes chronic Zach's granulomatosis chr onic Screening for colon cancer n oneactive Family history of colon cancer noneactive Actinic keratoses noneactive Establishing care with new doctor, encounter for noneactive Heartburn noneactive Left ankle pain noneactive Family history of malignant neoplasm of colon acute GERD (gastroesophageal reflux disease) acute Chronic neuropathic pain acu te Essential hypertension chron ic Zach's granulomatosis chr onic Heartburn noneactive Left ankle pain noneactive [place] Work Phone: Evaluation note* Diagnosis Onset Date Resolution Status Chronic neuropathic pain acu te Essential hypertension chron ic Zach's granulomatosis chr onic Heartburn noneactive Left ankle pain noneactive [place] Work Phone: Evaluation note* Diagnosis Sore throat- Primary Acute pharyngitis Thrush (oral) [facility] ESRD (end stage renal disease) (HCC)- Primary End stage renal disease End stage renal disease (HCC) End stage renal disease [facility] Diagnosis Peritoneal dialysis catheter in place (CMS/HCC) (HCC)- Primary [facility]* Diagnosis Onset Date Resolution Status Chronic neuropathic pain acu te Essential hypertension chron ic Zach's granulomatosis chr onic Heartburn noneactive Chronic neuropathic pain acu te Skin growth noneactive Actinic keratosis noneactive Peritoneal dialysis catheter in place noneactive Acute encephalopathy acute Acute peritonitis acute ESRD on peritoneal dialysis acute [place] Work Phone: Evaluation note* Diagnosis Onset Date Resolution Status Chronic neuropathic pain acu te Essential hypertension chron ic Zach's granulomatosis chr onic Heartburn noneactive Chronic neuropathic pain acu te Skin growth noneactive Actinic keratosis noneactive Peritoneal dialysis catheter in place noneactive Abdominal pain acute Acute encephalopathy acute Acute peritonitis acute ESRD on peritoneal dialysis acute BPH (benign prostatic hyperplasia) chronic Chronic kidney failure chron ic Essential hypertension chron ic [place] Work Phone: Evaluation note* Diagnosis Onset Date Resolution Status Chronic neuropathic pain acu te Essential hypertension chron ic Zach's granulomatosis chr onic Heartburn noneactive Chronic neuropathic pain acu te Skin growth noneactive Actinic keratosis noneactive Peritoneal dialysis catheter in place noneactive Acute encephalopathy acute Acute peritonitis acute ESRD on peritoneal dialysis acute BPH (benign prostatic hyperplasia) chronic Chronic kidney failure chron ic Essential hypertension chron ic Acute peritonitis acute Chronic neuropathic pain acu te Essential hypertension chron ic Zach's granulomatosis chr onic Swelling of right wrist none active Heartburn noneactive Generalized weakness noneact gavi Hospital discharge follow-up noneactive [place] Work Phone: Evaluation note* Diagnosis Onset Date Resolution Status Chronic neuropathic pain acu te Skin growth noneactive Actinic keratosis noneactive Peritoneal dialysis catheter in place noneactive Acute encephalopathy acute Acute peritonitis acute ESRD on peritoneal dialysis acute BPH (benign prostatic hyperplasia) chronic Chronic kidney failure chron ic Essential hypertension chron ic Acute peritonitis acute Chronic neuropathic pain acu te Essential hypertension chron ic Zach's granulomatosis chr onic Swelling of right wrist none active Heartburn noneactive Generalized weakness noneact g[facility] Hospital discharge follow-up noneactive RLS (restless legs syndrome) acute Chronic insomnia noneactive Generalized weakness noneact gavi ESRD (end stage renal disease) on dialysis noneactive [place] Work Phone: Evaluation note* Diagnosis Onset Date Resolution Status Acute encephalopathy acute Acute peritonitis acute ESRD on peritoneal dialysis acute BPH (benign prostatic hyperplasia) chronic Chronic kidney failure chron ic Essential hypertension chron ic Acute peritonitis acute Chronic neuropathic pain acu te Essential hypertension chron ic Zach's granulomatosis chr onic Swelling of right wrist none active Heartburn noneactive Generalized weakness noneact gavi Hospital discharge follow-up noneactive RLS (restless legs syndrome) acute Chronic insomnia noneactive Generalized weakness noneact gavi ESRD (end stage renal disease) on dialysis noneactive [place] Work Phone: Evaluation note* Diagnosis 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, initial encounter ([facility]) H/O total hip arthroplasty, right Trochanteric bursitis of right hip [facility] Diagnosis 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, initial encounter ([facility]) [facility] Diagnosis Onset Date Resolution Status Chronic neuropathic pain acu te RLS (restless legs syndrome) acute Essential hypertension chron ic Zach's granulomatosis chr onic Heartburn noneactive URI with cough and congestion noneactive Chronic insomnia noneactive Generalized weakness noneact gavi Shakiness noneactive ESRD on peritoneal dialysis acute Chronic neuropathic pain acu te RLS (restless legs syndrome) acute Essential hypertension chron ic Prediabetes chronic Zach's granulomatosis chr onic Elevated PSA noneactive Heartburn noneactive Chronic insomnia noneactive Generalized weakness noneact gavi Skin lesion noneactive Skin tear noneactive [place] Work Phone: Evaluation note* Diagnosis Stroke-like symptoms- Primary Stroke-like symptom 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 Dis[facility] instructions Additional Instructions Follow-up with Dr. Sarath Decker to be reevaluated and to determine when he will remove your Osorio catheter. Any problems with the Osorio catheter such as its not working, not draining or leaking follow-up with his office or return to the emergency department.[place] Work Phone: Hospital Discharge instructions Additional Instructions Please contact Dr. Decker's office to schedule a repeat evaluation and if you have any worsening of symptoms or return of obstruction [facility] Hospital Discharge instructions Additional Instructions Please keep the area clean and dry. Follow-up outpatient.[place] Work Phone: Reason for referral (narrative)No reason for referral information availableWSt. [facility] Work Phone: Reason for visit Narrative* Auth/Cert (Routine) Specialty Diagnoses / Procedures Referred By Contac t Referred To Contact Diagnoses Stroke-like symptoms AMS Procedures .. Daniel [place] MD [address] [place] [address] Phone: tel: fax: [facility] Trauma Neuro Progressive Care Unit [address] [place] [address] Phone: tel: Referral ID Status Reason Start Date Expiration Date Visits Re quested Visits Authorized [id number] [facility] Health Summary Purpose Family History No Family History Records FoundUnknown Family Member Name Dates Details No Known Family History 29-Jul-2018 Status:Active Unknown Family Member Name Dates Details No Known Family History 29-Jul-2018 Status:Active Relationship Condition Age at Onset Recorded Date/T frederic mother Coronary artery disease Unknown Congestive heart failure Unknown father Malignant neoplasm of prostate Unknown Malignant neoplasm of lung Unknown brother Malignant neoplasm of colon Unknown sister Malignant neoplasm of colon Unknown Relationship Condition Age at Onset Recorded Date/T frederic mother Coronary artery disease Unknown Congestive heart failure Unknown father Malignant neoplasm of prostate Unknown Malignant neoplasm of lung Unknown brother Malignant neoplasm of colon Unknown sister Malignant neoplasm of colon Unknown grandmother Diabetes mellitus Unknown Advance Directives No Advanced Directives Records FoundDocuments on File Type Date Recorded Patient Vice President Client Services Expl anation Advance Directives and Living Will Power of Spray Foam Installer Latest Code Status on File Code Status Date Activated Date Inactivated Comments Full Code 10/20/2019 10:33 PM Full Code 08/22/2017 1:39 PM 08/23/2017 1:27 AM Full Code 02/05/2016 12:20 PM 02/07/2016 2:52 PM Full Code 02/05/2016 6:21 AM 02/05/2016 12:17 PM Full Code 01/29/2016 4:43 PM 01/30/2016 2:37 AM Latest Code Status on File Code Status Date Activated Date Inactivated Comments Full Code 10/20/2019 10:33 PM 10/25/2019 8:37 PM Latest Code Status on File Code Status Date Activated Date Inactivated Comments Full Code 12/13/2019 10:55 PM Full Code 10/20/2019 10:33 PM 10/25/2019 8:37 PM Documents on File Type Date Recorded Patient Vice President Client Services Expl anation ACP-Advance Directive ACP-Power of Spray Foam Installer Latest Code Status on File Code Status Date Activated Date Inactivated Comments Full Code 04/06/2020 4:15 PM Full Code 04/06/2020 8:41 AM 04/06/2020 3:56 PM Full Code 04/06/2020 8:41 AM 04/06/2020 8:41 AM Full Code 12/13/2019 10:55 PM 12/15/2019 5:22 PM Latest Code Status on File Code Status Date Activated Date Inactivated Comments Full Code 04/06/2020 4:15 PM 04/07/2020 1:43 PM Latest Code Status on File Code Status Date Activated Date Inactivated Comments Full Code 08/22/2017 1:39 PM 08/23/2017 1:27 AM Latest Code Status on File Code Status Date Activated Date Inactivated Comments Full Code 12/13/2019 10:55 PM 12/15/2019 5:22 PM Documents on File Type Date Recorded Patient Vice President Client Services Expl anation ACP-Advance Directive ACP-Power of Spray Foam Installer 12/11/2020 11:32 AM Advance Directive Response Recorded Date/ Time Advance Directives Yes November 12 7:05am Living Will Yes January 18 7:17pm Power of Spray Foam Installer No January 18, 2022 7:17pm Advance Directive Response Recorded Date/ Time Name of Medical Power of Spray Foam Installer Leonarda Carmona ([email or web address]) January 18, 2022 11:45pm Advance Directives Yes November 12 7:05am Living Will Yes January 18 11:45pm Power of Spray Foam Installer Yes January 18, 2022 11:45pm Advance Directive Response Recorded Date/ Time Name of Medical Power of Spray Foam Installer CORTES CARMONA June 20, 2022 10:58am Advance Directives Yes November 12 6:05am Living Will Yes June 20 10:58am Power of Spray Foam Installer Yes June 20, 2022 10:58am Advance Directive Response Recorded Date/ Time Name of Medical Power of Spray Foam Installer CORTES MATHEW June 20, 2022 11:58am Advance Directives Yes November 12 7:05am Living Will Yes June 20 11:58am Power of Spray Foam Installer Yes June 20, 2022 11:58am Advance Directive Response Recorded Date/ Time Advance Directives Yes November 12 7:05am Living Will No November 09, 2022 6:13am Power of Spray Foam Installer No November 09 6:13am Advance Directive Response Recorded Date/ Time Advance Directives Yes November 12 7:05am Living Will No November 27, 2022 3:50am Power of Spray Foam Installer No November 27 3:50am Latest Code Status on File Code Status Date Activated Date Inactivated Comments Full Code 12/31/2022 12:34 PM 12/31/2022 6:48 PM Advance Directive Response Recorded Date/ Time Name of Medical Power of Spray Foam Installer RICKEY Epps February 27, 2023 4:21am Advance Directives Yes November 12 7:05am Living Will Yes February 27 4:21am Power of Spray Foam Installer Yes February 27, 2023 4:21am Advance Directive Response Recorded Date/ Time Name of Medical Power of Spray Foam Installer RICKEY BURTON & LEONARDA MATHEW February 27, 2023 8:09a m Advance Directives Yes November 12 7:05am Living Will Yes February 27 8:09am Power of Spray Foam Installer Yes February 27, 2023 8:09am Advance Directive Response Recorded Date/ Time Name of Medical Power of Spray Foam Installer RICKEY BURTON & LEONARDA MATHEW February 27, 2023 8:09a m Name of Medical Power of Spray Foam Installer . March 17, 2023 8:05pm Advance Directives Yes November 12 7:05am Living Will Yes March 17 8:05pm Power of Spray Foam Installer Yes March 17, 2023 8:05pm Advance Directive Response Recorded Date/ Time Name of Medical Power of Spray Foam Installer RICKEY BURTON & LEONARDA MATHEW February 27, 2023 7:09a m Name of Medical Power of Spray Foam Installer . March 17, 2023 7:05pm Advance Directives Yes November 12 6:05am Living Will Yes March 17 7:05pm Power of Spray Foam Installer Yes March 17, 2023 7:05pm Latest Code Status on File Code Status Date Activated Date Inactivated Comments Full Code 12/31/2022 12:34 PM 12/31/2022 6:48 PM Advance Directive Response Recorded Date/ Time Advance Directives Yes November 12 7:05am Living Will Yes March 17 8:05pm Power of Spray Foam Installer Yes March 17, 2023 8:05pm Advance Directive Response Recorded Date/ Time Living Will No April 19 3:59pm Power of Spray Foam Installer No April 19, 2024 3:59pm Advance Directives Yes November 12 7:05am Advance Directive Response Recorded Date/ Time Advance Directives Yes November 12 7:05am Documents on File Type Date Recorded Patient Vice President Client Services Expl anation DNR (Do Not Resuscitate) 11/30/2024 12:45 PM [place] DNR Form Date Activated Date Inactivated Comments 11/25/2024 5:46 PM 11/30/2024 4:42 PM Question Answer Comments ICU transfer: Yes Intubation: Yes Date Activated Date Inactivated Comments 11/25/2024 6:24 AM 11/25/2024 5:46 PM Date Activated Date Inactivated Comments 12/31/2022 12:34 PM 12/31/2022 6:48 PM Instructions Name Dates Details BMI 36.0-36.9,adult : How to access health information online Indication:BMI 36.0-36.9,adult BMI 36.0-36.9,adult : How to access health information online - Detail Indication:BMI 36.0-36.9,adult BMI 36.0-36.9,adult : Patien t Instructions Indication:BMI 36.0-36.9,adult Name Dates Details Non-smoker : How to access h ealth information online Indication:Non-smoker Non-smoker : How to access h ealth information online - Detail Indication:Non-smoker Non-smoker : Patient Instruc tions Indication:Non-smoker BMI 36.0-36.9,adult : How to access health information online Indication:BMI 36.0-36.9,adult BMI 36.0-36.9,adult : How to access health information online - Detail Indication:BMI 36.0-36.9,adult BMI 36.0-36.9,adult : Patien t Instructions Indication:BMI 36.0-36.9,adult History of Present Illness * Fang Smallwood - 10/25/2019 1:44 PM EDT Nephrology Progress Note Patient: Franklin Burton Room number: [id number] Date of Admit: 10/20/2019 LOS: 5 days Admitting physician: Marya Ramos MD Referring physician: Marya Ramos MD Assessment/Plan: RODERICK on CKD III Hematuria-baseline cr 1.9-2.2 since 2019, now elevated to peak Cr 3.7, now at 3.2 -suspect due to below -outpatient FeUrea, FeNa suggestive of intrinsic disease; urinalysis has 26-5- RBCs, upcr = 2.4 g; re-ordered serologies: outpt bloodwork was not sent ->re-sent here, still processing -avoid nephrotoxins. 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 and tubulointerstitial inflammation, c/w pauci immune vasculitits -was treated with steroids and 6 months of IV cytoxan -in on imuran as maintenance therapy -2019, PR3 Ab + but Cr stable 1.9-2.2 with proteinuria ranging from 250-600 mg, patient wasn't sureabout wanting biopsy/chemo so was just monitoring closely Plan: -renal biopsy formal results pending but did discuss with pathologist Dr Leigh, 22 glomeruli, 11 with glomerulosclerosis but the remaining glomeruli was showing active inflammation, no crescents, asof now, looks like 30% interstitial fibrosis -s/p solumedrol 1g q daily x 3 doses (last dose Sat 10/22) -CXR: u/r - proteinase 3 Ab ordered as outpt, awaiting results; (10/17) C3 122, C4 17 normal (not low) -discussed with pt/dtr Leonarda (HPOA) [phone]; with relapsing disease, initiate rituximab 375 mg/m2 weekly x 4 weeks (1st dose to be given in-house) -prednisone 60 mg daily, this dose probably for 2-4 weeks with goal of 20 mg/day by end of 2 months, overall tapering dose by 4-6 months -Bactrim prophylaxis: pt prefers the daily dosing so Bactrim SS daily (instead of Bactrim DS 3x/week) Steroid induced hyperglycemia -on lantus 5 and lispro SSI, may need insulin at home as he had in the past BPH -continue Flomax. Renal us no hydronephrosis Vit D def, Secondary hyperparathyroidism -goal PTH is 35-70, vit D >30 MICHAEL - goal hgb 10-11 with TSAT >22 and ferritin >100. (10/17) fe 47, tsat 19, ferritin 465 - s/p Venofer dose yesterday Metabolic acidosis - + Na bicarb Hyperkalemia - resolved Attending: Pt seen and examined independently from resident. Agree with above HPI/PE/A/P along withmy additional recommendations. Cr today 3.12. Discussed with RN, he tolerated the Rituxan infusion well - standing weight today was 198 lbs. No uremic sx. Ok to go home from renal standpoint. I will arrange for weekly rituxan infusion x 3 more doses, cont pred 60 mg daily (to be taken with meals), Bactrim SS daily for prophylaxis. Will have PCP follow his sugars because he has Hx of steroid induced hyperglycemia in the past. I will arrange for outpt ffup with me in 4 weeks. Fang Smallwood MD Pager [phone] [facility] [phone] HPI: Franklin Burton is a 74 y.o. male with chronic stable problems described in initial consult note. Interval history/events: States that he feels tired. Complains of being "swimming headed" when he stands up too quickly. Past Medical History: Diagnosis Date Allergic rhinitis BPH (benign prostatic hyperplasia) CHF (congestive heart failure) ([facility]) Chronic back pain Chronic kidney disease Compression fracture spring 2014 T12 Diabetes mellitus (HCC) while on steroids had high glucose GERD (gastroesophageal reflux disease) Heart failure (HCC) EF 45% [place] (hard of hearing) 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 Hypertension Obesity ROYAL (obstructive sleep apnea) Osteoarthritis Restless legs syndrome Status post right hip replacement 03/19/2016 Urge incontinence 07/24/2016 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HCC) Medications: MARS reviewed. Review of Systems: All other ROS negative except those noted above. Physical Exam: Vitals: 10/25/19 0845 10/25/19 1144 10/25/19 1303 10/25/19 1337 BP: 138/88 111/60 136/78 Pulse: (!) 45 72 64 Resp: 16 16 16 Temp: 97.7 F (36.5 C) 97.7 F (36.5 C) 98 F (36.7 C) TempSrc: Oral Oral Oral SpO2: 96% 98% 99% Weight: 198 lb 1.6 oz (89.9 kg) Height: 5' 6" (1.676 m) Admission weight: 207 lb 9.6 oz (94.2 kg) Wt Readings from Last 3 Encounters: 10/25/19 198 lb 1.6 oz (89.9 kg) 07/29/19 213 lb (96.6 kg) 07/22/19 215 lb (97.5 kg) Date 10/25/19 0000 - 10/25/19 2359 Shift 0967-5367 9697-5233 5613-3571 24 Hour Total INTAKE P.O.(mL/kg/hr) 300(0.4) 240 540 Shift Total(mL/kg) 300(3.3) 240(2.7) 540(6) OUTPUT Shift Total(mL/kg) Weight (kg) 90 89.9 89.9 89.9 Gen: Well nourished, tired. Appears stated age. Getting into bed. HENT: Normocephalic, atraumatic. Ears and nares grossly normal, + hearing loss, MMM no oral lesions Eyes: EOMI. PERLLA. Anicteric sclerae Neck: no palpable neck masses. No stiffness, no JVD, no SC/CLAD, no thyromegaly. Cv: regular rate and rhythm. No murmurs, rubs, or gallops/heave Resp: Normal work of breathing. Clear to ausculation bilaterally Abd: bowel sounds present. Non tender, non distended MSK: no joint deformities. Full ROM Ext: No calf tenderness or swelling Skin: warm and dry. No lesions noted Neuro: no tremors/myoclonus, no focal deficits Psych: appropriate mood and affect. Intact memory, fair judgment, Agreeable to care. LABS: Recent Labs 10/23/19 0524 10/24/19 0704 10/25/19 0538 WBC 11.3* 8.7 6.3 HGB 9.5* 9.3* 9.5* HCT 28.5* 27.8* 28.5* MCV 81.5 81.9 82.1 PLT 183 188 161 Lab Results Component Value Date IRON 38 (L) 10/22/2019 TIBC 233 (L) 10/22/2019 FERRITIN 516 (H) 10/22/2019 Lab Results Component Value Date [id number] 394 05/29/2016 Recent Labs 10/23/19 0523 10/24/19 0704 10/25/19 0538 NA 133* 133* 133* K 4.6 4.4 4.7 CL 105 104 103 CO2 17* 18* 20* BUN 55* 64* 68* CREATININE 3.58* 3.23* 3.12* GLUCOSE 154* 153* 147* CALCIUM 9.2 8.7 8.6 PHOS 3.5 4.0 3.5 ANIONGAP 11 10 9 Lab Results Component Value Date CALCIUM 8.6 10/25/2019 PHOS 3.5 10/25/2019 No components found for: [id number] No results for input(s): COLORU, CLARITYU, PH, PHUR, LABSPEC, GLUCOSEU, BLOODU, LEUKOCYTESUR, NITRITE, BILIRUBINUR, UROBILINOGEN, RBCUA, WBCUA, BACTERIA, AMORPHOUS, CRYSTAL in the last 72 hours. Invalid input(s): PROTEINUA, KEYTONESU, CASTS Diagnostic Studies: Personally reviewed available data [labs, MARS, radiologic studies, and electronic records]. Pleasecall with any questions. * Marya Ramos MD - 10/25/2019 1:43 PM EDT [facility] Progress Note Franklin Burton : 1945(74 y.o.) Date: 10/25/19 Subjective: HPI The patient complains of : fatigue, sent in by home health administrator The patient feels their symptoms areunchanged no events or new concerns Chart and interval hx reviewed. Assuming care. 74yo WM with PMHx Zach's granulomatosis w/glomperulonephritis, ROYAL (noncompliant with CPAP), HFrEF (45%) who presented as direct admission per home health administrator recommendation. Patient lives far away and would need to come to [place] daily for steroid infusions for GN and renal biopsy. Endorsed fatigue (worsened than normal). Labs and vitals reviewed. Afebrile, BP normotensive. SCr around baseline (mid 3's) BGT running higher today, now on 60mg prednisone daily. rituxin scheduled for today. Wants to wait to see how he tolerates it before going home. Scheduled Meds: diphenhydrAMINE 50 mg Intravenous Once hydrocortisone sodium succinate PF 100 mg Intravenous Once methylPREDNISolone 125 mg Intravenous Once famotidine (PEPCID) injection 20 mg Intravenous Once predniSONE 60 mg Oral Daily sulfamethoxazole-trimethoprim 1 tablet Oral Daily sodium bicarbonate 650 mg Oral BID insulin lispro 0-6 Units Subcutaneous TID WC insulin lispro 0-3 Units Subcutaneous Nightly atorvastatin 40 mg Oral Daily fluticasone 2 spray Nasal Daily gabapentin 100 mg Oral TID metoprolol tartrate 25 mg Oral BID pantoprazole 40 mg Oral QAM AC tamsulosin 0.4 mg Oral Daily sodium chloride flush 10 mL Intravenous 2 times per day heparin (porcine) 5,000 Units Subcutaneous Q8H Continuous Infusions: sodium chloride sodium chloride dextrose PRN Meds:sodium chloride flush, sodium chloride flush, heparin flush, EPINEPHrine, glucose, dextrose, glucagon (rDNA), dextrose, oxyCODONE- acetaminophen, ipratropium-albuterol, sodium chloride flush,acetaminophen OR acetaminophen, polyethylene glycol, melatonin, labetalol, benzonatate, dicyclom ine, ondansetron, promethazine Review of Systems Constitutional: Positive for fatigue. Negative for chills and fever. Gastrointestinal: Positive for abdominal pain. Negative for nausea and vomiting. Genitourinary: Negative for dysuria and flank pain. Neurological: Positive for weakness. Negative for dizziness and light-headedness. Interval Pertinent History: Social History Tobacco Use Smoking status: Former Smoker Packs/day: 1.00 Years: 19.00 Pack years: 19.00 Types: Cigarettes Start date: 07/08/1962 Last attempt to quit: 07/26/1981 Years since quittin.2 Smokeless tobacco: Never Used Substance Use Topics Alcohol use: No Alcohol/week: 0.0 standard drinks Comment: last drinking 2011 Objective: Patient Vitals for the past 24 hrs: BP Temp Temp src Pulse Resp SpO2 Height Weight 10/25/19 1337 136/78 98 F (36.7 C) Oral 64 16 99 % 10/25/19 1303 111/60 97.7 F (36.5 C) Oral 72 16 98 % 10/25/19 1144 138/88 97.7 F (36.5 C) Oral (!) 45 16 96 % 10/25/19 0845 5' 6" (1.676 m) 198 lb 1.6 oz (89.9 kg) 10/25/19 0806 (!) 150/85 97 F (36.1 C) Temporal 65 16 98 % 10/25/19 0614 198 lb 6.4 oz (90 kg) 10/25/19 0255 (!) 141/77 97.4 F (36.3 C) Temporal 62 18 98 % 10/24/19 2310 122/77 97.7 F (36.5 C) Temporal 60 16 96 % 10/24/19 1845 (!) 144/90 97.8 F (36.6 C) Tympanic 70 16 95 % 10/24/19 1512 124/62 98.1 F (36.7 C) Temporal 56 16 100 % Average, Min, and Max for last 24 hours Vitals: TEMPERATURE: Temp Av.7 F (36.5 C) Min: 97 F (36.1 C) Max: 98.1 F (36.7 C) RESPIRATIONS RANGE: Resp Av.3 Min: 16 Max: 18 PULSE RANGE: Pulse Av.8 Min: 45 Max: 72 BLOOD PRESSURE RANGE: Systolic (24hrs), Av , Min:111 , Max:150 ; Diastolic (24hrs), Av, Min:60, Max:90 PULSE OXIMETRY RANGE: SpO2 Av.5 % Min: 95 % Max: 100 % I/O last 3 completed shifts: In: 420 [P.O.:420] Out: - Physical Exam Vitals signs and nursing note reviewed. Constitutional: Appearance: Normal appearance. He is obese. He is not diaphoretic. Eyes: General: No scleral icterus. Cardiovascular: Rate and Rhythm: Normal rate and regular rhythm. Abdominal: Palpations: Abdomen is soft. Tenderness: There is abdominal tenderness (with deep palpation). Skin: General: Skin is warm and dry. Neurological: Mental Status: He is alert and oriented to person, place, and time. Lab Results Component Value Date WBC 6.3 10/25/2019 HGB 9.5 (L) 10/25/2019 HCT 28.5 (L) 10/25/2019 MCV 82.1 10/25/2019 PLT 161 10/25/2019 Lab Results Component Value Date NA 133 10/25/2019 K 4.7 10/25/2019 CL 103 10/25/2019 CO2 20 10/25/2019 BUN 68 10/25/2019 CREATININE 3.12 10/25/2019 GLUCOSE 147 10/25/2019 CALCIUM 8.6 10/25/2019 Lab Results Component Value Date LABA1C 6.1 06/25/2018 Additional results of the last 24 hours have been reviewed. Assessment and Plan: Principal Problem: Zach's-associated glomerulonephritis (HCC) Active Problems: Hypertension ROYAL (obstructive sleep apnea) Acute worsening of stage 4 chronic kidney disease (HCC) Gastroesophageal reflux disease Morbidly obese (HCC) Iron deficiency anemia, unspecified Resolved Problems: * No resolved hospital problems. * Assessment/Plan: # Zach's glomerulonephritis, relapse - admitted for renal biopsy and stress-dose steroids - biopsy 10/21/19 - appreciate nephro - IV solumedrol 1g/day x3 days, now pred 60mg - IV rituxin q-week, first dosey 10/25/19 # Steroid induced hyperglycemia, history - monitor once steroids started - renal carb control diet - start basal insulin (d/w PCP) # Abdominal discomfort - LFTs unchanged, vague sensation - bowel regimen # Acute on chronic kidney disease IV - secondary to above - baseline SCr 2.2 --> 3.62 at admission - hold lasix # Anemia, normocytic - iron studies, but highly suspect anemia of CKD - no s/s bleeding, INR normal # HFrEF (50%) - stable, appears euvolemic - home meds: statin, lopressor, lasix (held) # ROYAL (noncompliant) - may be contributing to fatigue - on inhalers # Obesity DVTProphylaxis: heparin 5000 q 8 hour Disposition:await test results, await wallpaper consultant recommendations and await clinical improvement I spent over 51% of total time providing counseling or incoordination of care: 35 minutes patient and family updated, I personally examined the patient and I personally reviewed chart, data, labs radiology reports D/w Dr. Smallwood extensively, informally d/w PCP 6AM-6PM please page: 6PM-6AM please page: [facility] [place] Internal Medicine * Fang Smallwood P - 10/24/2019 3:09 PM EDT Nephrology Progress Note Patient: Franklin Burton Room number: [id number] Date of Admit: 10/20/2019 LOS: 4 days Admitting physician: Marya Ramos MD Referring physician: Marya Ramos MD Assessment/Plan: RODERICK on CKD III Hematuria-baseline cr 1.9-2.2 since 2019, now elevated to peak Cr 3.7, now at 3.2 -suspect due to below -outpatient FeUrea, FeNa suggestive of intrinsic disease; urinalysis has 26-5- RBCs, upcr = 2.4 g; re-ordered serologies: outpt bloodwork was not sent ->re-sent here -avoid nephrotoxins. 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 -2013 lung biopsy with palisaded granulomatous inflammation c/w wewesers 2013 renal biopsy with segmental necrotizing glomerulitis with epithelial crescent formation and tubulointerstitial inflammation, c/w pauci immune vasculitits -was treated with steroids and 6 months of IV cytoxan -in on imuran as maintenance therapy -2019, PR3 Ab + but Cr stable 1.9-2.2 with proteinuria ranging from 250-600 mg, patient wasn't sureabout wanting biopsy/chemo so was just monitoring closely Plan: -renal biopsy formal results pending but did discuss with pathologist Dr Leigh, 22 glomeruli, 11 with glomerulosclerosis but the remaining glomeruli was showing active inflammation, no crescents, asof now, looks like 30% interstitial fibrosis -s/p solumedrol 1g q daily x 3 doses (last dose Sat 10/22) -CXR: u/r - proteinase 3 Ab ordered as outpt, awaiting results; (10/17) C3 122, C4 17 normal (not low) -discussed with pt/dtr Leonarda ([facility]) [phone]; with relapsing disease, initiate rituximab 375 mg/m2 weekly x 4 weeks (1st dose to be given in-house) -prednisone 60 mg daily, this dose probably for 2-4 weeks with goal of 20 mg/day by end of 2 months, overall tapering dose by 4-6 months -Bactrim prophylaxis: pt prefers the daily dosing so Bactrim SS daily (instead of Bactrim DS 3x/week) BPH -continue Flomax. Renal us no hydronephrosis Vit D def, Secondary hyperparathyroidism -goal PTH is 35-70, vit D >30 MICHAEL - goal hgb 10-11 with TSAT >22 and ferritin >100. (10/17) fe 47, tsat 19, ferritin 465 - can benefit from Venofer Metabolic acidosis - + Na bicarb Hyperkalemia - resolved Fang Smallwood MD Pager [phone] [facility] [phone] Ramos, dtr Leonarda HPI: Franklin Burton is a 74 y.o. male with chronic stable problems described in initial consult note. Interval history/events: NAEO. Patient states that he feels marginally better. Past Medical History: Diagnosis Date Allergic rhinitis BPH (benign prostatic hyperplasia) CHF (congestive heart failure) (HCC) Chronic back pain Chronic kidney disease Compression fracture spring 2014 T12 Diabetes mellitus (HCC) while on steroids had high glucose GERD (gastroesophageal reflux disease) Heart failure (HCC) EF 45% [place] (hard of hearing) 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 Hypertension Obesity ROYAL (obstructive sleep apnea) Osteoarthritis Restless legs syndrome Status post right hip replacement 03/19/2016 Urge incontinence 07/24/2016 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HCC) Medications: MARS reviewed. Review of Systems: All other ROS negative except those noted above. Physical Exam: Vitals: 10/23/19 2000 10/24/19 0049 10/24/19 0815 10/24/19 1121 BP: (!) 146/93 119/78 (!) 131/91 119/76 Pulse: 71 50 70 (!) 44 Resp: Temp: 97.6 F (36.4 C) 96.7 F (35.9 C) 98.7 F (37.1 C) 98 F (36.7 C) TempSrc: Temporal Temporal Temporal Temporal SpO2: 98% 98% 96% 98% Weight: Height: Admission weight: 207 lb 9.6 oz (94.2 kg) Wt Readings from Last 3 Encounters: 10/23/19 215 lb 9.6 oz (97.8 kg) 07/29/19 213 lb (96.6 kg) 07/22/19 215 lb (97.5 kg) Gen: Well nourished, tired. Appears stated age. Laying flat in bed, Alert, oriented x 3 HENT: Normocephalic, atraumatic. Ears and nares grossly normal, + hearing loss, MMM no oral lesions Eyes: EOMI. PERLLA. Anicteric sclerae Neck: no palpable neck masses. No stiffness, no JVD, no SC/CLAD, no thyromegaly. Cv: regular rate and rhythm. No murmurs, rubs, or gallops/heave Resp: Normal work of breathing. Clear to ausculation bilaterally Abd: bowel sounds present. Non tender, non distended MSK: no joint deformities. Full ROM Back: biopsy side non tender, not bleeding. Bandage covering. Ext: No calf tenderness or swelling Skin: warm and dry. No lesions noted Neuro: no tremors/myoclonus, no focal deficits Psych: appropriate mood and affect. Intact memory, fair judgment, Agreeable to care. AOx3 LABS: Recent Labs 10/22/19 0630 10/23/19 0524 10/24/19 0704 WBC 5.4 11.3* 8.7 HGB 10.2* 9.5* 9.3* HCT 31.3* 28.5* 27.8* MCV 81.7 81.5 81.9 PLT 186 183 188 Lab Results Component Value Date IRON 38 (L) 10/22/2019 TIBC 233 (L) 10/22/2019 FERRITIN 516 (H) 10/22/2019 Lab Results Component Value Date [id number] 394 05/29/2016 Recent Labs 10/22/19 0630 10/23/19 0523 10/24/19 0704 NA 132* 133* 133* K 5.2* 4.6 4.4 CL 104 105 104 CO2 19* 17* 18* BUN 47* 55* 64* CREATININE 3.54* 3.58* 3.23* GLUCOSE 211* 154* 153* CALCIUM 9.1 9.2 8.7 PHOS 2.3* 3.5 4.0 ANIONGAP 9 11 10 Lab Results Component Value Date CALCIUM 8.7 10/24/2019 PHOS 4.0 10/24/2019 No components found for: [id number] No results for input(s): COLORU, CLARITYU, PH, PHUR, LABSPEC, GLUCOSEU, BLOODU, LEUKOCYTESUR, NITRITE, BILIRUBINUR, UROBILINOGEN, RBCUA, WBCUA, BACTERIA, AMORPHOUS, CRYSTAL in the last 72 hours. Invalid input(s): PROTEINUA, KEYTONESU, CASTS Diagnostic Studies: Personally reviewed available data [labs, MARS, radiologic studies, and electronic records]. Pleasecall with any questions. * Marya Ramos MD - 10/24/2019 8:09 AM EDT [facility] Progress Note Franklin Burton : 1945(74 y.o.) Date: 10/24/19 Subjective: HPI The patient complains of : fatigue, sent in by home health administrator The patient feels their symptoms areunchanged no events or new concerns Chart and interval hx reviewed. Assuming care. 74yo WM with PMHx Zach's granulomatosis w/glomperulonephritis, ROYAL (noncompliant with CPAP), HFrEF (45%) who presented as direct admission per home health administrator recommendation. Patient lives far away and would need to come to [place] daily for steroid infusions for GN and renal biopsy. Endorsed fatigue (worsened than normal). Labs and vitals reviewed. Afebrile, BP normotensive. SCr around baseline (mid 3's) Completed IV steroids yesterday - awaiting call for biopsy results. Blood sugars controlled (< 180) Scheduled Meds: sodium bicarbonate 650 mg Oral BID insulin lispro 0-6 Units Subcutaneous TID WC insulin lispro 0-3 Units Subcutaneous Nightly atorvastatin 40 mg Oral Daily fluticasone 2 spray Nasal Daily gabapentin 100 mg Oral TID metoprolol tartrate 25 mg Oral BID pantoprazole 40 mg Oral QAM AC tamsulosin 0.4 mg Oral Daily sodium chloride flush 10 mL Intravenous 2 times per day heparin (porcine) 5,000 Units Subcutaneous Q8H Continuous Infusions: dextrose PRN Meds:glucose, dextrose, glucagon (rDNA), dextrose, oxyCODONE-acetaminophen, ipratropium-albuterol, sodium chloride flush, acetaminophen OR acetaminophen, polyethylene glycol, melatonin, labetalol, benzonatate, dicyclomine, ondansetron, promethazine Review of Systems Constitutional: Positive for fatigue. Negative for chills and fever. Gastrointestinal: Positive for abdominal pain. Negative for nausea and vomiting. Genitourinary: Negative for dysuria and flank pain. Neurological: Positive for weakness. Negative for dizziness and light-headedness. Interval Pertinent History: Social History Tobacco Use Smoking status: Former Smoker Packs/day: 1.00 Years: 19.00 Pack years: 19.00 Types: Cigarettes Start date: 07/08/1962 Last attempt to quit: 07/26/1981 Years since quittin.2 Smokeless tobacco: Never Used Substance Use Topics Alcohol use: No Alcohol/week: 0.0 standard drinks Comment: last drinking 2011 Objective: Patient Vitals for the past 24 hrs: BP Temp Temp src Pulse Resp SpO2 Height 10/24/19 0049 119/78 96.7 F (35.9 C) Temporal 50 20 98 % 10/23/19 2000 (!) 146/93 97.6 F (36.4 C) Temporal 71 20 98 % 10/23/19 1537 (!) 146/86 97.3 F (36.3 C) Temporal 70 16 97 % 10/23/19 1232 5' 6" (1.676 m) 10/23/19 1151 (!) 147/82 97.7 F (36.5 C) Temporal 68 20 96 % Average, Min, and Max for last 24 hours Vitals: TEMPERATURE: Temp Av.3 F (36.3 C) Min: 96.7 F (35.9 C) Max: 97.7 F (36.5 C) RESPIRATIONS RANGE: Resp Av Min: 16 Max: 20 PULSE RANGE: Pulse Av.8 Min: 50 Max: 71 BLOOD PRESSURE RANGE: Systolic (24hrs), Av , Min:119 , Max:147 ; Diastolic (24hrs), Av, Min:78, Max:93 PULSE OXIMETRY RANGE: SpO2 Av.3 % Min: 96 % Max: 98 % No intake/output data recorded. Physical Exam Vitals signs and nursing note reviewed. Constitutional: Appearance: Normal appearance. He is obese. He is not diaphoretic. Eyes: General: No scleral icterus. Cardiovascular: Rate and Rhythm: Normal rate and regular rhythm. Abdominal: Palpations: Abdomen is soft. Tenderness: There is abdominal tenderness (with deep palpation). Skin: General: Skin is warm and dry. Neurological: Mental Status: He is alert and oriented to person, place, and time. Lab Results Component Value Date WBC 8.7 10/24/2019 HGB 9.3 (L) 10/24/2019 HCT 27.8 (L) 10/24/2019 MCV 81.9 10/24/2019 PLT 188 10/24/2019 Lab Results Component Value Date NA 133 10/24/2019 K 4.4 10/24/2019 CL 104 10/24/2019 CO2 18 10/24/2019 BUN 64 10/24/2019 CREATININE 3.23 10/24/2019 GLUCOSE 153 10/24/2019 CALCIUM 8.7 10/24/2019 Lab Results Component Value Date LABA1C 6.1 06/25/2018 Additional results of the last 24 hours have been reviewed. Assessment and Plan: Principal Problem: Zach's-associated glomerulonephritis (HCC) Active Problems: Hypertension ROYAL (obstructive sleep apnea) Acute worsening of stage 4 chronic kidney disease (HCC) Gastroesophageal reflux disease Morbidly obese (HCC) Iron deficiency anemia, unspecified Resolved Problems: * No resolved hospital problems. * Assessment/Plan: # Zach's glomerulonephritis - admitted for renal biopsy and stress-dose steroids - biopsy 10/21/19 - appreciate nephro - IV solumedrol 1g/day x3 days - Dr. Smallwood awaiting biopsy results to determine rituxin vs plasmapharesis # Steroid induced hyperglycemia, history - monitor once steroids started - renal carb control diet - start SSI and monitor units required # Abdominal discomfort - LFTs unchanged, vague sensation - bowel regimen # Acute on chronic kidney disease IV - secondary to above - baseline SCr 2.2 --> 3.62 at admission - hold lasix # Anemia, normocytic - iron studies, but highly suspect anemia of CKD - no s/s bleeding, INR normal # HFrEF (50%) - stable, appears euvolemic - home meds: statin, lopressor, lasix (held) # ROYAL (noncompliant) - may be contributing to fatigue - on inhalers # Obesity DVTProphylaxis: heparin 5000 q 8 hour Disposition:await test results, await wallpaper consultant recommendations and await clinical improvement I spent over 51% of total time providing counseling or incoordination of care: 35 minutes patient and family updated, I personally examined the patient and I personally reviewed chart, data, labs radiology reports D/w Dr. Smallwood 6AM-6PM please page: 6PM-6AM please page: [facility] [place] Internal Medicine * Fang Smallwood - 10/23/2019 3:25 PM EDT Nephrology Progress Note Patient: Franklin Burton Room number: [id number] Date of Admit: 10/20/2019 LOS: 3 days Admitting physician: Marya Ramos MD Referring physician: Marya Ramos MD Assessment/Plan: RODERICK on CKD III Hematuria-baseline cr 1.9-2.2 since 2019, now elevated to 3.4- 3.7, cr stable 3.5 -suspect due to below -outpatient FeUrea, FeNa suggestive of intrinsic disease; urinalysis has 26-5- RBCs, upcr = 2.4 g; re-ordered serologies: outpt bloodwork was not sent -renal biopsy pending -avoid nephrotoxins. Daily BMP - no overt uremic sx Granulomatosis with polyangiitis -diagnosed in 2013 -2013 lung biopsy with palisaded granulomatous inflammation c/w wegners 2013 renal biopsy with segmental necrotizing glomerulitis with epithelial crescent formation and tubulointerstitial inflammation, c/w pauci immune vasculitits -was treated with steroids and 6 months of IV cytoxan -in on imuran as maintenance therapy -2019, PR3 Ab + but Cr stable 1.9-2.2 with proteinuria ranging from 250-600 mg, patient wasn't sureabout wanting biopsy/chemo so was just monitoring closely Plan: -continue solumedrol 1g q daily x 3 doses (last dose today) - CXR - proteinase 3 Ab ordered as outpt, awaiting results; (10/17) C3 122, C4 17 normal (not low) - awaiting call back from Pathology, if no crescents/not suggestive of RPGN and no significant fibrosis - will likely initiate Rituximab therapy; if with crescents - need plasmapheresis BPH -continue Flomax. Renal us no hydronephrosis Vit D def, Secondary hyperparathyroidism -goal PTH is 35-70, vit D >30 MICHAEL - goal hgb 10-11 with TSAT >22 and ferritin >100. (10/17) fe 47, tsat 19, ferritin 465 - can benefit from iron supplementation Metabolic acidosis - + Na bicarb Hyperkalemia - resolved Fang Smallwood MD Pager [phone] [facility] [phone] Ramos HPI: Franklin Burton is a 74 y.o. male with chronic stable problems described in initial consult note. Interval history/events: NAEO. Patient states that he feels marginally better. Past Medical History: Diagnosis Date Allergic rhinitis BPH (benign prostatic hyperplasia) CHF (congestive heart failure) (HCC) Chronic back pain Chronic kidney disease Compression fracture spring 2014 T12 Diabetes mellitus (HCC) while on steroids had high glucose GERD (gastroesophageal reflux disease) Heart failure (HCC) EF 45% [place] (hard of hearing) 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 Hypertension Obesity ROYAL (obstructive sleep apnea) Osteoarthritis Restless legs syndrome Status post right hip replacement 03/19/2016 Urge incontinence 07/24/2016 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HCC) Medications: MARS reviewed. Review of Systems: All other ROS negative except those noted above. Physical Exam: Vitals: 10/23/19 0621 10/23/19 0807 10/23/19 1151 10/23/19 1232 BP: 133/78 (!) 147/82 Pulse: 79 68 Resp: 12 20 Temp: 97.6 F (36.4 C) 97.7 F (36.5 C) TempSrc: Temporal Temporal SpO2: 95% 96% Weight: 215 lb 9.6 oz (97.8 kg) Height: 5' 6" (1.676 m) Admission weight: 207 lb 9.6 oz (94.2 kg) Wt Readings from Last 3 Encounters: 10/23/19 215 lb 9.6 oz (97.8 kg) 07/29/19 213 lb (96.6 kg) 07/22/19 215 lb (97.5 kg) Gen: Well nourished, tired. Appears stated age. Laying flat in bed, Alert, oriented x 3 HENT: Normocephalic, atraumatic. Ears and nares grossly normal, + hearing loss, MMM no oral lesions Eyes: EOMI. PERLLA. Anicteric sclerae Neck: no palpable neck masses. No stiffness, no JVD, no SC/CLAD, no thyromegaly. Cv: regular rate and rhythm. No murmurs, rubs, or gallops/heave Resp: Normal work of breathing. Clear to ausculation bilaterally Abd: bowel sounds present. Non tender, non distended MSK: no joint deformities. Full ROM Back: biopsy side non tender, not bleeding. Bandage covering. Ext: No calf tenderness or swelling Skin: warm and dry. No lesions noted Neuro: no tremors/myoclonus, no focal deficits Psych: appropriate mood and affect. Intact memory, fair judgment, Agreeable to care. AOx3 LABS: Recent Labs 10/21/19 0121 10/22/19 0630 10/23/19 0524 WBC 5.0 5.4 11.3* HGB 9.5* 10.2* 9.5* HCT 28.7* 31.3* 28.5* MCV 82.1 81.7 81.5 PLT 188 186 183 Lab Results Component Value Date IRON 38 (L) 10/22/2019 TIBC 233 (L) 10/22/2019 FERRITIN 516 (H) 10/22/2019 Lab Results Component Value Date [id number] 394 05/29/2016 Recent Labs 10/21/19 0121 10/22/19 0630 10/23/19 0523 NA 134* 132* 133* K 4.9 5.2* 4.6 CL 104 104 105 CO2 21* 19* 17* BUN 46* 47* 55* CREATININE 3.62* 3.54* 3.58* GLUCOSE 126* 211* 154* CALCIUM 8.9 9.1 9.2 PHOS 4.2 2.3* 3.5 ANIONGAP 10 9 11 Lab Results Component Value Date CALCIUM 9.2 10/23/2019 PHOS 3.5 10/23/2019 No components found for: [id number] No results for input(s): COLORU, CLARITYU, PH, PHUR, LABSPEC, GLUCOSEU, BLOODU, LEUKOCYTESUR, NITRITE, BILIRUBINUR, UROBILINOGEN, RBCUA, WBCUA, BACTERIA, AMORPHOUS, CRYSTAL in the last 72 hours. Invalid input(s): PROTEINUA, KEYTONESU, CASTS Diagnostic Studies: Personally reviewed available data [labs, MARS, radiologic studies, and electronic records]. Pleasecall with any questions. * Alyssa Carlson RD, LD - 10/23/2019 12:53 PM EDT Nutrition Assessment Type and Reason for Visit: Initial(Clay Hoister referral) Nutrition Recommendations: 1. Continue with diet as ordered, monitor renal/bowel function, po intake as well as need to liberalize diet order. 2. Monitor goals of care and aggressiveness of nutrition intervention. 3. Continue to monitor and follow weekly. Nutrition Assessment: Per chart, PMHx Zach's Granulomatosis with Glomerulonephritis, ROYAL - non-compliant, HFrEF who presents as a direct admit for further w/u of worsening renal function- Stage 4 CKD. Patient said he's been feeling very tired and bodily fatigued in the last few weeks. He said inrecent days, he has gotten up to eat breakfast, and has to immediately go back to bed after becausehe is physically incapable of doing anything. He also notes a feeling of discomfort throughout his abdomen at times. He says it is random and not associated with eating and he has difficulty describing it further. Malnutrition Assessment: Malnutrition Status: Insufficient data Context: Acute illness or injury Findings of the 6 clinical characteristics of malnutrition (Minimum of 2 out of 6 clinical characteristics is required to make the diagnosis of moderate or severe Protein Calorie Malnutrition based on AND/ASPEN Guidelines): 1. Energy Intake-Unable to assess, Unable to assess 2. Weight Loss-Unable to assess, unable to assess 3. Fat Loss-Unable to assess, 4. Muscle Loss-Unable to assess, 5. Fluid Accumulation-Unable to assess, 6. Funeral Attendant Strength-Not measured Nutrition Risk Level: High Nutrition Diagnosis: Problem: Altered nutrition-related lab values Etiology: related to Renal dysfunction ? Signs and symptoms: as evidenced by Lab values Objective Information: Nutrition-Focused Physical Findings: + bowel sounds; Noted: Na 133, BUN 55^, Cr 3.58^, Glu 137 Current Nutrition Therapies: Oral Diet Orders: Carb Control 4 Carbs/Meal, Renal Oral Diet intake: 76-100% Anthropometric Measures: Ht: 5' 6" (167.6 cm) Current Body Wt: 215 lb (97.5 kg) [place] Body Wt: 142 lb (64.4 kg), % [place] Body 151% BMI Classification: BMI 30.0 - 34.9 Obese Class I Nutrition Interventions: Continue current diet Continued Inpatient Monitoring Nutrition Evaluation: Evaluation: Goals set Goals: Pt. to consume >75% po diet. Monitoring: Nutrition Progression, Monitor Bowel Function, Monitor Hemodynamic Status, Pertinent Labs, Diet Tolerance, Meal Intake, Skin Integrity, I&O, Weight Contact Number: pager [phone] * Marya Ramos MD - 10/23/2019 8:21 AM EDT [facility] Progress Note Franklin Burton : 1945(74 y.o.) Date: 10/23/19 Subjective: HPI The patient complains of : fatigue, sent in by home health administrator The patient feels their symptoms areunchanged no events or new concerns Chart and interval hx reviewed. Assuming care. 74yo WM with PMHx Zach's granulomatosis w/glomperulonephritis, ROYAL (noncompliant with CPAP), HFrEF (45%) who presented as direct admission per home health administrator recommendation. Patient lives far away and would need to come to [place] daily for steroid infusions for GN and renal biopsy. Endorsed fatigue (worsened than normal). Labs and vitals reviewed. Afebrile, BP normotensive. SCr around baseline (mid 3's) with mild hyperK. Glad to hear BGTs remain stable. Day 3 of steroids today. Awaiting jimbo kang - Dr. Smallwood called lab regarding biopsy to determine if needs plasmapharesis Scheduled Meds: insulin lispro 0-6 Units Subcutaneous TID WC insulin lispro 0-3 Units Subcutaneous Nightly methylPREDNISolone 1,000 mg Intravenous Daily atorvastatin 40 mg Oral Daily fluticasone 2 spray Nasal Daily gabapentin 100 mg Oral TID metoprolol tartrate 25 mg Oral BID pantoprazole 40 mg Oral QAM AC tamsulosin 0.4 mg Oral Daily sodium chloride flush 10 mL Intravenous 2 times per day heparin (porcine) 5,000 Units Subcutaneous Q8H Continuous Infusions: dextrose PRN Meds:glucose, dextrose, glucagon (rDNA), dextrose, oxyCODONE-acetaminophen, ipratropium-albuterol, sodium chloride flush, acetaminophen OR acetaminophen, polyethylene glycol, melatonin, labetalol, benzonatate, dicyclomine, ondansetron, promethazine Review of Systems Constitutional: Positive for fatigue. Negative for chills and fever. Gastrointestinal: Positive for abdominal pain. Negative for nausea and vomiting. Genitourinary: Negative for dysuria and flank pain. Neurological: Positive for weakness. Negative for dizziness and light-headedness. Interval Pertinent History: Social History Tobacco Use Smoking status: Former Smoker Packs/day: 1.00 Years: 19.00 Pack years: 19.00 Types: Cigarettes Start date: 07/08/1962 Last attempt to quit: 07/26/1981 Years since quittin.2 Smokeless tobacco: Never Used Substance Use Topics Alcohol use: No Alcohol/week: 0.0 standard drinks Comment: last drinking 2011 Objective: Patient Vitals for the past 24 hrs: BP Temp Temp src Pulse Resp SpO2 Weight 10/23/19 0807 133/78 97.6 F (36.4 C) Temporal 79 12 95 % 10/23/19 0621 215 lb 9.6 oz (97.8 kg) 10/22/19 2248 129/89 98 F (36.7 C) Temporal 84 18 98 % 10/22/19 1957 (!) 153/90 97.6 F (36.4 C) Temporal 85 16 97 % 10/22/19 1713 (!) 142/89 97.4 F (36.3 C) Temporal 69 22 96 % 10/22/19 1118 (!) 147/93 97.8 F (36.6 C) Temporal 59 16 96 % Average, Min, and Max for last 24 hours Vitals: TEMPERATURE: Temp Av.7 F (36.5 C) Min: 97.4 F (36.3 C) Max: 98 F (36.7 C) RESPIRATIONS RANGE: Resp Av.8 Min: 12 Max: 22 PULSE RANGE: Pulse Av.2 Min: 59 Max: 85 BLOOD PRESSURE RANGE: Systolic (24hrs), Av , Min:129 , Max:153 ; Diastolic (24hrs), Av, Min:78, Max:93 PULSE OXIMETRY RANGE: SpO2 Av.4 % Min: 95 % Max: 98 % I/O last 3 completed shifts: In: 1190 [P.O.:1190] Out: 450 [Urine:450] Physical Exam Vitals signs and nursing note reviewed. Constitutional: Appearance: Normal appearance. He is obese. He is not diaphoretic. Eyes: General: No scleral icterus. Cardiovascular: Rate and Rhythm: Normal rate and regular rhythm. Abdominal: Palpations: Abdomen is soft. Tenderness: There is abdominal tenderness (with deep palpation). Skin: General: Skin is warm and dry. Neurological: Mental Status: He is alert and oriented to person, place, and time. Lab Results Component Value Date WBC 11.3 (H) 10/23/2019 HGB 9.5 (L) 10/23/2019 HCT 28.5 (L) 10/23/2019 MCV 81.5 10/23/2019 PLT 183 10/23/2019 Lab Results Component Value Date NA 133 10/23/2019 K 4.6 10/23/2019 CL 105 10/23/2019 CO2 17 10/23/2019 BUN 55 10/23/2019 CREATININE 3.58 10/23/2019 GLUCOSE 154 10/23/2019 CALCIUM 9.2 10/23/2019 Lab Results Component Value Date LABA1C 6.1 06/25/2018 Additional results of the last 24 hours have been reviewed. Assessment and Plan: Principal Problem: Zach's-associated glomerulonephritis (HCC) Active Problems: Hypertension ROYAL (obstructive sleep apnea) Acute worsening of stage 4 chronic kidney disease (HCC) Gastroesophageal reflux disease Morbidly obese (HCC) Iron deficiency anemia, unspecified Resolved Problems: * No resolved hospital problems. * Assessment/Plan: # Zach's glomerulonephritis - admitted for renal biopsy and stress-dose steroids - biopsy 10/21/19 - appreciate nephro - IV solumedrol 1g/day x3 days with ?steroids and/or plasmapharesis # Steroid induced hyperglycemia, history - monitor once steroids started - renal carb control diet - start SSI and monitor units required # Abdominal discomfort - LFTs unchanged, vague sensation - bowel regimen # Acute on chronic kidney disease IV - secondary to above - baseline SCr 2.2 --> 3.62 at admission - hold lasix # Anemia, normocytic - iron studies, but highly suspect anemia of CKD - no s/s bleeding, INR normal # HFrEF (50%) - stable, appears euvolemic - home meds: statin, lopressor, lasix (held) # ROYAL (noncompliant) - may be contributing to fatigue - on inhalers # Obesity DVTProphylaxis: heparin 5000 q 8 hour Disposition:await test results, await wallpaper consultant recommendations and await clinical improvement I spent over 51% of total time providing counseling or incoordination of care: 35 minutes patient and family updated, I personally examined the patient and I personally reviewed chart, data, labs radiology reports 6AM-6PM please page: 6PM-6AM please page: [facility] [place] Internal Medicine * Fang Smallwood P - 10/22/2019 9:16 AM EDT Nephrology Progress Note Patient: Franklin Burton Room number: 1555/[id number] Date of Admit: 10/20/2019 LOS: 2 days Admitting physician: Marya aRmos MD Referring physician: Marya Ramos MD Assessment/Plan: RODERICK on CKD III Hematuria-baseline cr 1.9-2.2 since 2019, now elevated to 3.4- 3.7, cr stable 3.5 -suspect due to below -outpatient FeUrea, FeNa suggestive of intrinsic disease; urinalysis has 26-5- RBCs, upcr = 2 g -renal biopsy pending -avoid nephrotoxins. Daily BMP Granulomatosis with polyangiitis -diagnosed in 2013 -2013 lung biopsy with palisaded granulomatous inflammation c/w wegners 2013 renal biopsy with segmental necrotizing glomerulitis with epithelial crescent formation and tubulointerstitial inflammation, c/w pauci immune vasculitits -was treated with steroids and 6 months of IV cytoxan -in on imuran as maintenance therapy -2019, PR3 Ab + but Cr stable 1.9-2.2 with proteinuria ranging from 250-600 mg, patient wasn't sureabout wanting biopsy/chemo so was just monitoring closely Plan: -continue solumedrol 1g q daily x 3 doses - CXR - proteinase 3 Ab ordered as outpt, awaiting results; (10/17) C3 122, C4 17 normal (not low) BPH -continue Flomax. Renal us no hydronephrosis Vit D def, Secondary hyperparathyroidism -goal PTH is 35-70, vit D >30 MICHAEL - goal hgb 10-11 with TSAT >22 and ferritin >100. (10/17) fe 47, tsat 19, ferritin 465 - can benefit from iron supplementation Metabolic acidosis - if worsening + Na bicarb Hyperkalemia, mild Attending: Pt seen and examined independently from resident. Agree with above HPI/PE/A/P along withmy additional recommendations. Awaiting renal bx results, left message with [facility]. Making sure we are not dealing with crescentric GN/RPGN which will require plasmapheresis. His Cr stable, good UO, no uremic sx. Sending rest of serologies (for proteinuria as well) - outpt lab saying sample sent was mislabeled, so unclear if we will get results from that sample drawn 10/17. Solumedrol 1 g x 3 days. Discussed with him that if this is truly a recurrence - our likely plan is rituximab + steroids. Fang Smallwood MD Pager [phone] [facility] [phone] HPI: Franklin Burton is a 74 y.o. male with chronic stable problems described in initial consult note. Interval history/events: NAEO. Patient states that he feels marginally better. Past Medical History: Diagnosis Date Allergic rhinitis BPH (benign prostatic hyperplasia) CHF (congestive heart failure) (HCC) Chronic back pain Chronic kidney disease Compression fracture spring 2014 T12 Diabetes mellitus (HCC) while on steroids had high glucose GERD (gastroesophageal reflux disease) Heart failure (HCC) EF 45% [place] (hard of hearing) 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 Hypertension Obesity ROYAL (obstructive sleep apnea) Osteoarthritis Restless legs syndrome Status post right hip replacement 03/19/2016 Urge incontinence 07/24/2016 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HCC) Medications: MARS reviewed. Review of Systems: All other ROS negative except those noted above. Physical Exam: Vitals: 10/22/19 0048 10/22/19 0345 10/22/19 0500 10/22/19 0737 BP: (!) 139/90 (!) 147/88 Pulse: 64 74 58 Resp: 20 16 Temp: 97.3 F (36.3 C) 97.4 F (36.3 C) TempSrc: Temporal Temporal SpO2: 95% 97% Weight: 203 lb 11.2 oz (92.4 kg) Height: Admission weight: 207 lb 9.6 oz (94.2 kg) Wt Readings from Last 3 Encounters: 10/22/19 203 lb 11.2 oz (92.4 kg) 07/29/19 213 lb (96.6 kg) 07/22/19 215 lb (97.5 kg) Date 10/22/19 0000 - 10/22/19 2359 Shift [id number] 0767-1584 7131-3196 24 Hour Total INTAKE P.O.(mL/kg/hr) 200(0.3) 360 560 Shift Total(mL/kg) 200(2.2) 360(3.9) 560(6.1) OUTPUT Urine(mL/kg/hr) 350(0.5) 150 500 Shift Total(mL/kg) 350(3.8) 150(1.6) 500(5.4) Weight (kg) 92.4 92.4 92.4 92.4 Gen: Well nourished, tired. Appears stated age. Laying flat in bed, Alert, oriented x 3 HENT: Normocephalic, atraumatic. Ears and nares grossly normal, + hearing loss, MMM no oral lesions Eyes: EOMI. PERLLA. Anicteric sclerae Neck: no palpable neck masses. No stiffness, no JVD, no SC/CLAD, no thyromegaly. Cv: regular rate and rhythm. No murmurs, rubs, or gallops/heave Resp: Normal work of breathing. Clear to ausculation bilaterally Abd: bowel sounds present. Non tender, non distended MSK: no joint deformities. Full ROM Back: biopsy side non tender, not bleeding. Bandage covering. Ext: No calf tenderness or swelling Skin: warm and dry. No lesions noted Neuro: no tremors/myoclonus, no focal deficits Psych: appropriate mood and affect. Intact memory, fair judgment, Agreeable to care. AOx3 LABS: Recent Labs 10/21/19 01210/22/19 0630 WBC 5.0 5.4 HGB 9.5* 10.2* HCT 28.7* 31.3* MCV 82.1 81.7 PLT 188 186 Lab Results Component Value Date IRON 38 (L) 10/22/2019 TIBC 233 (L) 10/22/2019 FERRITIN 516 (H) 10/22/2019 Lab Results Component Value Date [id number] 394 05/29/2016 Recent Labs 10/21/19 0121 10/22/19 0630 NA 134* 132* K 4.9 5.2* CL 104 104 CO2 21* 19* BUN 46* 47* CREATININE 3.62* 3.54* GLUCOSE 126* 211* CALCIUM 8.9 9.1 PHOS 4.2 2.3* ANIONGAP 10 9 Lab Results Component Value Date CALCIUM 9.1 10/22/2019 PHOS 2.3 (L) 10/22/2019 No components found for: [id number] No results for input(s): COLORU, CLARITYU, PH, PHUR, LABSPEC, GLUCOSEU, BLOODU, LEUKOCYTESUR, NITRITE, BILIRUBINUR, UROBILINOGEN, RBCUA, WBCUA, BACTERIA, AMORPHOUS, CRYSTAL in the last 72 hours. Invalid input(s): PROTEINUA, KEYTONESU, CASTS Diagnostic Studies: Personally reviewed available data [labs, MARS, radiologic studies, and electronic records]. Pleasecall with any questions. * Marya Ramos MD - 10/22/2019 9:01 AM EDT [facility] Progress Note Franklin Burton : 1945(74 y.o.) Date: 10/22/19 Subjective: HPI The patient complains of : fatigue, sent in by home health administrator The patient feels their symptoms areunchanged no events or new concerns Chart and interval hx reviewed. Assuming care. 74yo WM with PMHx Zach's granulomatosis w/glomperulonephritis, ROYAL (noncompliant with CPAP), HFrEF (45%) who presented as direct admission per home health administrator recommendation. Patient lives far away and would need to come to [facility] daily for steroid infusions for GN and renal biopsy. Endorsed fatigue (worsened than normal). Labs and vitals reviewed. Afebrile, BP normotensive. SCr around baseline (mid 3's) with mild hyperK. Iron saturation normal. Feels much better today after having eaten and slept. Denies chest pain or SOB. No jitteriness from steroids. Urinating. Scheduled Meds: methylPREDNISolone 1,000 mg Intravenous Daily atorvastatin 40 mg Oral Daily fluticasone 2 spray Nasal Daily gabapentin 100 mg Oral TID metoprolol tartrate 25 mg Oral BID pantoprazole 40 mg Oral QAM AC tamsulosin 0.4 mg Oral Daily sodium chloride flush 10 mL Intravenous 2 times per day heparin (porcine) 5,000 Units Subcutaneous Q8H Continuous Infusions: PRN Meds:oxyCODONE-acetaminophen, ipratropium-albuterol, sodium chloride flush, acetaminophen OR acetaminophen, polyethylene glycol, melatonin, labetalol, benzonatate, dicyclomine, ondansetron, promethazine Review of Systems Constitutional: Positive for fatigue. Negative for chills and fever. Gastrointestinal: Positive for abdominal pain. Negative for nausea and vomiting. Genitourinary: Negative for dysuria and flank pain. Neurological: Positive for weakness. Negative for dizziness and light-headedness. Interval Pertinent History: Social History Tobacco Use Smoking status: Former Smoker Packs/day: 1.00 Years: 19.00 Pack years: 19.00 Types: Cigarettes Start date: 07/08/1962 Last attempt to quit: 07/26/1981 Years since quittin.2 Smokeless tobacco: Never Used Substance Use Topics Alcohol use: No Alcohol/week: 0.0 standard drinks Comment: last drinking 2011 Objective: Patient Vitals for the past 24 hrs: BP Temp Temp src Pulse Resp SpO2 Weight 10/22/19 0737 (!) 147/88 97.4 F (36.3 C) Temporal 58 16 97 % 10/22/19 0500 203 lb 11.2 oz (92.4 kg) 10/22/19 0345 (!) 139/90 97.3 F (36.3 C) Temporal 74 20 95 % 10/22/19 0048 64 10/22/19 0022 115/80 97.8 F (36.6 C) Temporal (!) 42 20 95 % 10/21/19 2006 (!) 143/91 98.8 F (37.1 C) Temporal 87 20 96 % 10/21/19 1634 112/76 98.1 F (36.7 C) Temporal 84 16 96 % 10/21/19 1105 123/79 73 19 99 % 10/21/19 1100 128/70 72 14 100 % 10/21/19 1055 130/77 65 13 100 % 10/21/19 1050 (!) 142/81 64 15 94 % 10/21/19 1045 (!) 141/90 65 17 99 % 10/21/19 1040 (!) 150/90 67 14 100 % Average, Min, and Max for last 24 hours Vitals: TEMPERATURE: Temp Av.9 F (36.6 C) Min: 97.3 F (36.3 C) Max: 98.8 F (37.1 C) RESPIRATIONS RANGE: Resp Av.7 Min: 13 Max: 20 PULSE RANGE: Pulse Av.9 Min: 42 Max: 87 BLOOD PRESSURE RANGE: Systolic (24hrs), Av , Min:112 , Max:150 ; Diastolic (24hrs), Av, Min:70, Max:91 PULSE OXIMETRY RANGE: SpO2 Av.4 % Min: 94 % Max: 100 % I/O last 3 completed shifts: In: 600 [P.O.:600] Out: 750 [Urine:750] Physical Exam Vitals signs and nursing note reviewed. Constitutional: Appearance: Normal appearance. He is obese. He is not diaphoretic. Eyes: General: No scleral icterus. Cardiovascular: Rate and Rhythm: Normal rate and regular rhythm. Abdominal: Palpations: Abdomen is soft. Tenderness: There is abdominal tenderness (with deep palpation). Skin: General: Skin is warm and dry. Neurological: Mental Status: He is alert and oriented to person, place, and time. Lab Results Component Value Date WBC 5.4 10/22/2019 HGB 10.2 (L) 10/22/2019 HCT 31.3 (L) 10/22/2019 MCV 81.7 10/22/2019 PLT 186 10/22/2019 Lab Results Component Value Date NA 132 10/22/2019 K 5.2 10/22/2019 CL 104 10/22/2019 CO2 19 10/22/2019 BUN 47 10/22/2019 CREATININE 3.54 10/22/2019 GLUCOSE 211 10/22/2019 CALCIUM 9.1 10/22/2019 Lab Results Component Value Date LABA1C 6.1 06/25/2018 Additional results of the last 24 hours have been reviewed. Assessment and Plan: Principal Problem: Zach's-associated glomerulonephritis (HCC) Active Problems: Hypertension ROYAL (obstructive sleep apnea) Acute worsening of stage 4 chronic kidney disease (HCC) Gastroesophageal reflux disease Morbidly obese (HCC) Iron deficiency anemia, unspecified Resolved Problems: * No resolved hospital problems. * Assessment/Plan: # Zach's glomerulonephritis - admitted for renal biopsy and stress-dose steroids - biopsy 10/21/19 - appreciate nephro - IV solumedrol 1g/day x3 day # Steroid induced hyperglycemia, history - monitor once steroids started - renal carb control diet - start SSI and monitor units required # Abdominal discomfort - LFTs unchanged, vague sensation - bowel regimen # Acute on chronic kidney disease IV - secondary to above - baseline SCr 2.2 --> 3.62 at admission - hold lasix # Anemia, normocytic - iron studies, but highly suspect anemia of CKD - no s/s bleeding, INR normal # HFrEF (50%) - stable, appears euvolemic - home meds: statin, lopressor, lasix (held) # ROYAL (noncompliant) - may be contributing to fatigue - on inhalers # Obesity DVTProphylaxis: heparin 5000 q 8 hour Disposition:await test results, await wallpaper consultant recommendations and await clinical improvement I spent over 51% of total time providing counseling or incoordination of care: 35 minutes patient and family updated, I personally examined the patient and I personally reviewed chart, data, labs radiology reports D/w Dr. Smallwood (nephro) 6AM-6PM please page: 6PM-6AM please page: [facility] [place] Internal Medicine * Maegan Jackson - 10/22/2019 9:01 AM EDT Nutrition rescreen completed. Patient referred to the Dietitian. SEAN Hayes * Sindhu Ballard RN - 10/21/2019 10:17 AM EDT Patient arrived to US department for right kidney biopsy. Dr. Mclean in to speak with patient regarding procedure and informed consent obtained. Patient placed pron . truck rental service attendant on and initial scan done. Right mid back marked, prepped and drapped in sterile fashion per protocol. core needle biopsies obtained and sent to lab. Bandaid applied to site. Patient tolerated procedure well. * Marya Ramos MD - 10/21/2019 8:05 AM EDT [facility] Progress Note Franklin Burton : 1945(74 y.o.) Date: 10/21/19 Subjective: HPI The patient complains of : fatigue, sent in by home health administrator The patient feels their symptoms areunchanged no events or new concerns Chart and interval hx reviewed. Assuming care. 74yo WM with PMHx Zach's granulomatosis w/glomperulonephritis, ROYAL (noncompliant with CPAP), HFrEF (45%) who presented as direct admission per home health administrator recommendation. Patient lives far away and would need to come to [facility] daily for steroid infusions for GN and renal biopsy. Endorsed fatigue (worsened than normal). Seen this morning after biopsy. Biggest complaint is hunger and wants to eat lunch. Denies pain from biopsy currently. No chest pain or SOB right now - endorses "feeling winded" with movement. No dysuria or hematuria Scheduled Meds: atorvastatin 40 mg Oral Daily fluticasone 2 spray Nasal Daily gabapentin 100 mg Oral TID metoprolol tartrate 25 mg Oral BID pantoprazole 40 mg Oral QAM AC tamsulosin 0.4 mg Oral Daily sodium chloride flush 10 mL Intravenous 2 times per day heparin (porcine) 5,000 Units Subcutaneous Q8H Continuous Infusions: PRN Meds:oxyCODONE-acetaminophen, ipratropium-albuterol, sodium chloride flush, acetaminophen OR acetaminophen, polyethylene glycol, melatonin, labetalol, benzonatate, dicyclomine, ondansetron, promethazine Review of Systems Constitutional: Positive for fatigue. Negative for chills and fever. Gastrointestinal: Positive for abdominal pain. Negative for nausea and vomiting. Genitourinary: Negative for dysuria and flank pain. Neurological: Positive for weakness. Negative for dizziness and light-headedness. Interval Pertinent History: Social History Tobacco Use Smoking status: Former Smoker Packs/day: 1.00 Years: 19.00 Pack years: 19.00 Types: Cigarettes Start date: 07/08/1962 Last attempt to quit: 07/26/1981 Years since quittin.2 Smokeless tobacco: Never Used Substance Use Topics Alcohol use: No Alcohol/week: 0.0 standard drinks Comment: last 2011 Objective: Patient Vitals for the past 24 hrs: BP Temp Temp src Pulse Resp SpO2 Height Weight 10/21/19 0311 136/74 98.5 F (36.9 C) Temporal 72 18 97 % 205 lb 14.4 oz (93.4 kg) 10/20/19 2343 (!) 143/92 Temporal 75 18 207 lb 9.6 oz (94.2 kg) 10/20/19 2342 97.9 F (36.6 C) Temporal 74 97 % 10/20/19 2048 (!) 144/87 98.2 F (36.8 C) Temporal 70 18 98 % 5' 6" (1.676 m) 207 lb 9.6 oz (94.2 kg) Average, Min, and Max for last 24 hours Vitals: TEMPERATURE: Temp Av.2 F (36.8 C) Min: 97.9 F (36.6 C) Max: 98.5 F (36.9 C) RESPIRATIONS RANGE: Resp Av Min: 18 Max: 18 PULSE RANGE: Pulse Av.8 Min: 70 Max: 75 BLOOD PRESSURE RANGE: Systolic (24hrs), Av , Min:136 , Max:144 ; Diastolic (24hrs), Av, Min:74, Max:92 PULSE OXIMETRY RANGE: SpO2 Av.3 % Min: 97 % Max: 98 % No intake/output data recorded. Physical Exam Vitals signs and nursing note reviewed. Constitutional: Appearance: Normal appearance. He is obese. He is not diaphoretic. Eyes: General: No scleral icterus. Cardiovascular: Rate and Rhythm: Normal rate and regular rhythm. Abdominal: Palpations: Abdomen is soft. Tenderness: There is abdominal tenderness (with deep palpation). Skin: General: Skin is warm and dry. Neurological: Mental Status: He is alert and oriented to person, place, and time. Lab Results Component Value Date WBC 5.0 10/21/2019 HGB 9.5 (L) 10/21/2019 HCT 28.7 (L) 10/21/2019 MCV 82.1 10/21/2019 PLT 188 10/21/2019 Lab Results Component Value Date NA 134 10/21/2019 K 4.9 10/21/2019 CL 104 10/21/2019 CO2 21 10/21/2019 BUN 46 10/21/2019 CREATININE 3.62 10/21/2019 GLUCOSE 126 10/21/2019 CALCIUM 8.9 10/21/2019 Lab Results Component Value Date LABA1C 6.1 06/25/2018 Additional results of the last 24 hours have been reviewed. Assessment and Plan: Principal Problem: Zach's-associated glomerulonephritis (HCC) Active Problems: ROYAL (obstructive sleep apnea) Acute worsening of stage 4 chronic kidney disease (HCC) Resolved Problems: * No resolved hospital problems. * Assessment/Plan: # Zach's glomerulonephritis - admitted for renal biopsy and stress-dose steroids - appreciate nephro - NPO, renal biopsy today prior to steroid administration # Abdominal discomfort - LFTs unchanged, vague sensation - bowel regimen # Acute on chronic kidney disease IV - secondary to above - baseline SCr 2.2 --> 3.62 at admission - hold lasix # Anemia, normocytic - check iron studies, but highly suspect anemia of CKD - no s/s bleeding, INR normal # Steroid induced hyperglycemia - monitor once steroids started # HFrEF (50%) - stable, appears euvolemic - home meds: statin, lopressor, lasix (held) # ROYAL (noncompliant) - may be contributing to fatigue - on inhalers # Obesity DVTProphylaxis: heparin 5000 q 8 hour Disposition:await test results, await wallpaper consultant recommendations and await clinical improvement I spent over 51% of total time providing counseling or incoordination of care: 35 minutes patient and family updated, I personally examined the patient and I personally reviewed chart, data, labs radiology reports D/w SEBAS Smith 6AM-6PM please page: 6PM-6AM please page: [facility] [place] Internal Medicine documented in this encounter* Evangelina Santos, SEBAS - 11/01/2019 8:00 AM EDT Pt arrived ambulatory today for Rituxan cycle 2. Pt has first cycle inpatient. No labs due. Per pt is permitted to take beta blockers prior to Rituxan. No changes to plan of care today. Pt has had Rituxan in the past. Pt voiced understanding for POC and purpose of visit. Pt continues maxwell on Prednisone concurrent with Rituxan for his renal disease. Covid consent signed and reviewed. 0950 pt reporting restless legs from Benadryl. 1218 Pt tolerated treatment well without incident. Pt verbalizes an understanding of their discharge instructions and when to call their physician. Pt aware of their next scheduled appointment. documented in this encounter* Cheyanne Bartlett RN - 11/08/2019 8:03 AM EDT Here for week 3 of 4 of Rituxan, no labs ordered. Pt denies any toxicities from treatment, he is most bothered by restless legs from the bendaryl. Denies any questions or concerns today. 1226-rituxan tolerated well, denies any complaints, next appt reviewed and pt voices understanding. documented in this encounter* Alycia Guzman RN - 11/15/2019 8:10 AM EDT Patient arrived via WC stating he is extremely tired and that each treatment seems to take longer to "get over". He does take beta blockers before treatment. IV started with ease. Courtesy labs drawnper IV start as follows: C4, Protinease-3 Ab, C3, CRP high sensitivity, CBC with diff, Renal panel,sed rate to outreach lab. Urine protein, creatinine, and urinalysis to outreach lab. Patient tolerated well. Discharged to home. He has OV scheduled with Dr. Smallwood after infusion today. documented in this encounter* Peg Nur RN - 12/15/2019 1:40 PM EDT Patient requesting to take his afternoon Gabapentin when he gets home. * Peg Nur RN - 12/15/2019 1:34 PM EDT Discharge instructions given to and reviewed in detail with patient. Patient educated on follow up appointments, new medication and times of ALL next medication doses due. Patient educated on s/s to call his doctor and come back to ED. Patient verbalized understanding of all discharge instructions,denies having any questions. IV discontinued per orders. Patient to be discharged with all belongings. * Peg Nur RN - 12/15/2019 8:24 AM EDT Left message for Beatriz Abdul ASSOCIATE APPLICATION DEVELOPER patient refused Lovenox and Aspirin. Patient educated patient on rationale for medications, patient still refused. * Beatriz Abdul, FACING CUTTING MACHINE OPERATOR - WHEEL SETTER - 12/14/2019 9:44 AM EDT CDU Progress Note 12/14/2019 9:44 AM Subjective: Admit Date: 12/13/2019 PCP: Rahel Mendez MD Interval History: Denies chest pain, sob, nausea, vomiting, diarrhea, constipation, fevers, or chills. Pt states he was able to get intermittent sleep overnight but kept waking up with abdominal/suprapubic pain. This AM he had 6/10 abd pain and slight nausea. Pt has a history of BPH and states he has to self cath at home typically once a week with the last time being Mon/Tu last week. States heuses a clean cath each time and does not reuse supplies. Pt has seen Dr. Zarco in the past with thelast visit at the beginning of November. Pt is now presenting with abd pain and UTI, urology consult placed and explained to pt. Denies any hematuria, dysuria, or burning but does report frequency. DIET CARDIAC; No Caffeine Diet NPO, After Midnight Date 12/14/19 0000 - 12/14/19 2359 Shift [id number] 24 Hour Total INTAKE Shift Total(mL/kg) OUTPUT Urine(mL/kg/hr) 300(0.4) 300 Shift Total(mL/kg) 300(3.4) 300(3.4) Weight (kg) 88.5 88.5 88.5 88.5 Patient Vitals for the past 96 hrs (Last 3 readings): Weight 12/13/19 1830 195 lb (88.5 kg) Medications: DOBUTamine dextrose ciprofloxacin 400 mg Intravenous Q24H budesonide 500 mcg Nebulization BID fluticasone 2 spray Nasal Daily gabapentin 100 mg Oral TID insulin glargine 5 Units Subcutaneous QAM metoprolol tartrate 25 mg Oral BID pantoprazole 40 mg Oral QAM AC predniSONE 40 mg Oral Daily sodium bicarbonate 650 mg Oral BID sulfamethoxazole-trimethoprim 1 tablet Oral Daily tamsulosin 0.4 mg Oral Daily sodium chloride flush 3 mL Intravenous Q8H sodium chloride flush 10 mL Intravenous 2 times per day aspirin 81 mg Oral Daily enoxaparin 30 mg Subcutaneous Daily LABS: Recent Results (from the past 24 hour(s)) Hemogram (CBC) w/Auto Diff Collection Time: 12/13/19 6:56 PM Result Value Ref Range WBC 9.8 3.6 - 10.7 10*3/uL RBC 4.36 (L) 4.40 - 5.90 10*6/uL Hemoglobin 12.6 (L) 13.0 - 18.0 g/dL Hematocrit 38.1 (L) 40.0 - 52.0 % MCV 87.5 80.0 - 98.0 fL MCH 29.0 26.0 - 34.0 pg MCHC 33.1 32.0 - 36.0 % RDW 19.6 (H) 11.5 - 14.5 % Platelets 90 (L) 140 - 440 10*3/uL MPV 7.3 (L) 7.4 - 10.4 fL Granulocytes % 91.7 (H) 40.0 - 80.0 % Lymphocyte % 3.9 (L) 20.0 - 40.0 % Monocytes 4.2 2.0 - 10.0 % Eosinophils 0.1 (L) 1.0 - 6.0 % Basophils 0.1 0.0 - 2.0 % Absolute Neut # 9.0 (H) 1.8 - 7.0 10*3/uL Absolute Lymph # 0.4 (L) 1.0 - 4.3 10*3/uL Absolute [place] # 0.4 0.0 - 0.8 10*3/uL Absolute Eos # 0.0 0.0 - 0.5 10*3/uL Absolute Baso # 0.0 0.0 - 0.2 10*3/uL Basic Metabolic Panel Collection Time: 12/13/19 6:56 PM Result Value Ref Range Sodium 134 (L) 135 - 145 mmol/L Potassium 4.6 3.5 - 5.1 mmol/L Chloride 107 98 - 107 mmol/L CO2 19 (L) 22 - 30 mmol/L Anion Gap 8 NA Glucose 95 70 - 100 mg/dL BUN 62 (H) 7 - 20 mg/dL CREATININE 3.02 (H) 0.52 - 1.25 mg/dL eGFR 22.6 (A) >60 mL/min EGFR IF NonAfrican Sudanese 19.5 (A) >60 mL/min Calcium 8.6 8.4 - 10.4 mg/dL Hepatic Function Panel Collection Time: 12/13/19 6:56 PM Result Value Ref Range Albumin,Serum 3.2 (L) 3.5 - 5.0 g/dL Total Protein 5.5 (L) 6.3 - 8.2 g/dL Total Bilirubin 0.5 0.2 - 1.3 mg/dL Bilirubin, Direct 0.0 0.0 - 0.3 mg/dL Alkaline Phosphatase 48 38 - 126 U/L ALT 30 0 - 49 U/L AST 28 15 - 46 U/L Lipase Collection Time: 12/13/19 6:56 PM Result Value Ref Range Lipase 150 23 - 300 U/L Troponin x1 Collection Time: 12/13/19 6:56 PM Result Value Ref Range Troponin I 0.015 0.000 - 0.034 ng/mL Brain Natriuretic Peptide Collection Time: 12/13/19 6:56 PM Result Value Ref Range NT Pro-BNP 1,201 (H) 0 - 125 pg/mL Add On Lab Test Collection Time: 12/13/19 8:04 PM Result Value Ref Range Add On Accepted NA Troponin Collection Time: 12/13/19 10:13 PM Result Value Ref Range Troponin I 0.021 0.000 - 0.034 ng/mL TSH without Reflex Collection Time: 12/13/19 10:13 PM Result Value Ref Range TSH 2.598 0.465 - 4.680 u[IU]/mL POCT Glucose Collection Time: 12/13/19 11:28 PM Result Value Ref Range POC Glucose 86 70 - 100 mg/dL Add On Lab Test Collection Time: 12/13/19 11:42 PM Result Value Ref Range Add On Accepted NA Urinalysis Collection Time: 12/14/19 12:11 AM Result Value Ref Range Glucose, Ur Normal Normal (<70) mg/dL Total Protein, Urine 70 (A) Negative mg/dL Bilirubin Urine Negative Negative mg/dL Urobilinogen, Urine Normal Normal (0-1) mg/dL pH, Urine 6.0 5.0 - 8.0 NA Specific [place], Urine 1.012 1.005 - 1.030 NA Occult Blood,Urine 0.2 (A) Negative mg/dL Ketones, Urine Negative Negative mg/dL Nitrite, Urine Positive (A) Negative NA LEUKOCYTES, UA 250 (A) Negative Karla/uL Appearance Clear Clear NA Color, Urine Light-Yellow Lt. Yellow NA RBC, UA 11-25 (A) 0 - 2 /[HPF] WBC, UA 11-25 (A) 0 - 5 /[HPF] Squam Epithel, UA Negative 3 - 5 /[HPF] Bacteria, UA Few (A) Negative /[HPF] Mucous Threads Few Negative /[LPF] Hyaline Casts, UA Negative Negative /[LPF] Troponin Collection Time: 12/14/19 1:48 AM Result Value Ref Range Troponin I 0.020 0.000 - 0.034 ng/mL Add On Lab Test Collection Time: 12/14/19 6:00 AM Result Value Ref Range Add On Accepted NA POCT Glucose Collection Time: 12/14/19 8:32 AM Result Value Ref Range POC Glucose 77 70 - 100 mg/dL Urine Culture: Results for orders placed or performed during the hospital encounter of 07/03/16 Urine Culture Specimen: Urine, Nephrostomy Result Value Ref Range Urine Culture, Routine No growth (<1,000 CFU/ml). REVIEW OF SYSTEMS: Ten systems reviewed and negative except for HPI. Objective: Vitals: BP 139/88 Pulse 89 Temp 97.1 F (36.2 C) (Temporal) Resp 11 Ht 5' 6" (1.676 m) Wt 195 lb (88.5 kg) SpO2 99% BMI 31.47 kg/m Pulse Ox: SpO2 Av.2 % Min: 96 % Max: 99 % Supplemental O2: none General appearance: alert, appears stated age and cooperative, lethargic Skin: Skin color, texture, turgor normal. No rashes or lesions HEENT: Normocephalic, no lesions, without obvious abnormality. Neck: no adenopathy, no carotid bruit, no JVD, supple, symmetrical, trachea midline Lungs: clear to auscultation bilaterally, non labored breathing Heart: regular rate and rhythm, S1, S2 normal, no murmur, click, rub or gallop Chest Wall: No tenderness to palpation at chest wall, sternum, and anterior shoulders Abdomen: soft, non-tender; bowel sounds normal; no masses Extremities: extremities normal, atraumatic, no cyanosis or edema, 2+ PP Neurologic: Alert, oriented, thought content appropriate, EOMI, CNII-CNXII grossly intact Assessment and Plan 1. Chest pain: troponin (0.015, 0.021, 0.020), no ischemic EKG changes, will continue tele observation. DSE today. Will obtain cardiac records from [facility]. 2. Weakness/Fatgue: electrolytes WNL, TSH wnl, and echo, UA positive - placed on Cipro 400 BID for 3 days per pharmacy recommendation - culture pending. 3. Abdominal pain: work-up so far is benign, will obtain records from [facility] 4. CKD: creatinine at baseline 5. HTN: Currently controlled on home medications. 6. HPL: Currently controlled on home medications. 7. Hx of BPH/retention: pt active with urology (Dr Zarco). Bladder scan this AM for 511cc. Pt self catheterized himself (typically does at home weekly-reports using clean supplies each time). With active UTI and abdominal/suprapubic pain on admission consult placed to urology. Diagnosis Date Allergic rhinitis BPH (benign prostatic hyperplasia) CHF (congestive heart failure) (HCC) Chronic back pain Chronic kidney disease Compression fracture spring 2014 T12 Diabetes mellitus (HCC) while on steroids had high glucose GERD (gastroesophageal reflux disease) Heart failure (HCC) EF 45% [place] (hard of hearing) 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 Hypertension Obesity ROYAL (obstructive sleep apnea) Osteoarthritis Restless legs syndrome Status post right hip replacement 03/19/2016 Urge incontinence 07/24/2016 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[facility]) -DVT prophylaxis: [x] Lovenox [] Heparin [] SCDs [x] Encourage ambulation [] Already on Anticoagulation Advance Directive: Full Code Discharge planning: Awaiting results of DSE and urology consult. Discharge when medically stable. Beatriz Abdul CNP Associated attestation - Flor Jensen MD - 12/14/2019 9:36 PM EDT I have personally reviewed the case with the residents or K[facility]. I agree with the current plan of care including the workup, evaluation, management, and diagnosis. Care plan has been discussed. The above documentation has been reviewed and edited as needed to reflect the findings of my evaluation. Due to the current efforts to prevent transmission of COVID-19 and also the need to preserve PPE for other caregivers, a [id number] encounter with the patient was not performed. That being said, all relevant records and diagnostic tests were reviewed, including laboratory results and imaging. Please reference any relevant documentation elsewhere. . * Angelia Hinson PA - 12/14/2019 1:07 AM EDT Pt's urine resulted as (+) nitrates, and leukocytes, few bacteria. Pt currently on preventative dosing of bactrim for Zach's granulomatosis. Pharmacy was contacted regarding antibiotic options, [facility]oo recommended Ciprofloxacin 400mg BID x 3 days. Pt does report increased urinary frequency. Angelia Hinson PAC documented in this encounter* Al Anderson RN - 04/07/2020 10:27 AM EST Pt educated on prevention of infection and prevention of falls. post void residual of 11 after osorio removal. Educated pt to come in if he cannot urinate. Spoke with daughter who is coming to pick upfather. * Janelle Alfonso - 04/06/2020 6:59 PM EST Belongings taken to pt admit room H5-[address] [place] documented in this encounter Assessments Diagnosis Zach's-associated glomerulonephritis (HCC) Acute worsening of stage 4 chronic kidney disease (HCC) ROYAL (obstructive sleep apnea) Obstructive sleep apnea (adult) (pediatric) Iron deficiency anemia, unspecified Morbidly obese (HCC) Morbid obesity Gastroesophageal reflux disease Esophageal reflux Hypertension Unspecified essential hypertension Diagnosis Zach's granulomatosis with renal involvement (HCC) Zach's granulomatosis Diagnosis Chest pain, unspecified type Fatigue, unspecified type Chronic kidney disease, unspecified CKD stage Diagnosis BPH with urinary obstruction Hypertrophy of prostate with urinary obstruction and other lower urinary tract symptoms (LUTS) Diagnosis Urinary tract infection without hematuria, site unspecified Other fatigue Diagnosis Other iron deficiency anemia Diagnosis Bacteria in urine Other nonspecific finding on examination of urine Discharge Instructions * Discharge Instr - Activity* Beatriz Abdul APRN - CNP - 12/15/2019 11:41 AM EDT As tolerated. * Attachments The following attachments cannot be sent through Care Everywhere. * Chest Pain: Musculoskeletal (Kittitian) * UTI (Urinary Tract Infection): Male (Kittitian) documented in this encounter* Attachments The following attachments cannot be sent through Care Everywhere. * TURP: Post-op (Kittitian) documented in this encounter* Instructions* Yoseph Randolph PA - 04/25/2020 You have been diagnosed with a urinary tract infection (UTI). A UTI can be painful, especially withurination, and make you feel as you have to urinate often. You may notice that you urinate just a small amount. That is typical for this disorder. Make certain to take medications as prescribed. Increase your clear fluid intake to flush this disorder out of your system. If you develop flank/back pain and/or fever either see your doctor immediately or follow-up with the emergency room. The same applies if you just generally feel worse. Take fever reducers as needed for fever such as Tylenol. Reducing your fever alone will help you feel much better. Follow-up with your doctor in 2-4 days. documented in this encounter* Instructions* Lora Duffy RN - 03/14/2020 Shower with an antibacterial soap such as Dial or Safeguard. Please bring your [facility] Information folder on the day of surgery. Please capo the last dose taken (date and time ) on your Daily Medications List provided in your After Visit Summary. Please bring a photo ID and insurance information TAKE the following medications the morning of your surgery: LOPRESSOR,GABPENTIN,OMEPRAZOLE. MAY USEALBUTEROL AND PULMICORT IF NEEDED. You may take your prescription pain medications- PERCOCET. You may take Tylenol (Acetaminophen) if needed for pain. No Motrin, Ibuprofen, or Advil 24 hours prior to surgery, or longer if instructed by your surgeon. No Aleve or Naprosyn 3 days prior to surgery, or longer if instructed by your surgeon. Do not take aspirin or aspirin containing products for 5 days before surgery, or longer if instructed by your surgeon. Follow all instructions given to you by Dr. ZARCO. You will receive a reminder call the day before surgery with your Same Day Surgery arrival time. If you have specific questions, please call your surgeon. You may use the free [employer] parking located at the main entrance on [address] [facility] and take the H elevator to the first floor for same day surgery. Take a left after exiting the elevator and checkin at the desk. * Attachments The following attachments cannot be sent through Care Everywhere. * TURP: Pre-op (Kittitian) documented in this encounter Chief Complaint and Reason for Visit Chief Complaint COVID, WEAKNESS, CON FUSION COVID, WEAKNESS, CONFUSION COVID, WEAKNESS, CONFUSION Reason for Visit COVID-19 Encephalopathy acute Weakness Hyperkalemia Chronic kidney failure Chief Complaint Pain in feet COLONOSCOPY Reason for Visit Chronic neuropathic pain Chronic kidney failure Chronic systolic heart failure Essential hypertension Obstructive sleep apnea Prediabetes Zach's granulomatosis Screening for colon cancer Family history of colon cancer Actinic keratoses Establishing care with new doctor, encounter for Heartburn Left ankle pain Family history of malignant neoplasm of colon GERD (gastroesophageal reflux disease) Chief Complaint Pain in feet COLONOSCOPY 3 M FU Reason for Visit Chronic neuropathic pain Chronic kidney failure Chronic systolic heart failure Essential hypertension Obstructive sleep apnea Prediabetes Zach's granulomatosis Screening for colon cancer Family history of colon cancer Actinic keratoses Establishing care with new doctor, encounter for Heartburn Left ankle pain Family history of malignant neoplasm of colon GERD (gastroesophageal reflux disease) Chronic neuropathic pain Essential hypertension Zach's granulomatosis Heartburn Left ankle pain Chief Complaint 3 M FU Reason for Visit Chronic neuropathic pain Essential hypertension Zach's granulomatosis Heartburn Left ankle pain Chief Complaint 3 M FU urinary retention Reason for Visit Chronic neuropathic pain Essential hypertension Zach's granulomatosis Heartburn Left ankle pain Chief Complaint urinary retention 3 M FU GROWTH ON LIP CONSTIPATION SYNCOPE Reason for Visit Chronic neuropathic pain Essential hypertension Zach's granulomatosis Heartburn Chronic neuropathic pain Skin growth Actinic keratosis Peritoneal dialysis catheter in place Acute encephalopathy Acute peritonitis ESRD on peritoneal dialysis Chief Complaint urinary retention 3 M FU GROWTH ON LIP CONSTIPATION SYNCOPE Syncope Syncope Reason for Visit Chronic neuropathic pain Essential hypertension Zach's granulomatosis Heartburn Chronic neuropathic pain Skin growth Actinic keratosis Peritoneal dialysis catheter in place Abdominal pain Acute encephalopathy Acute peritonitis ESRD on peritoneal dialysis BPH (benign prostatic hyperplasia) Chronic kidney failure Essential hypertension Chief Complaint urinary retention 3 M FU GROWTH ON LIP CONSTIPATION SYNCOPE Syncope [facility] WOUND Reason for Visit Chronic neuropathic pain Essential hypertension Zach's granulomatosis Heartburn Chronic neuropathic pain Skin growth Actinic keratosis Peritoneal dialysis catheter in place Acute encephalopathy Acute peritonitis ESRD on peritoneal dialysis BPH (benign prostatic hyperplasia) Chronic kidney failure Essential hypertension Acute peritonitis Chronic neuropathic pain Essential hypertension Zach's granulomatosis Swelling of right wrist Heartburn Generalized weakness Hospital discharge follow-up Chief Complaint GROWTH ON LIP CONSTIPATION SYNCOPE Syncope [facility] WOUND DEPRESSION/RESTLESS LEG Reason for Visit Chronic neuropathic pain Skin growth Actinic keratosis Peritoneal dialysis catheter in place Acute encephalopathy Acute peritonitis ESRD on peritoneal dialysis BPH (benign prostatic hyperplasia) Chronic kidney failure Essential hypertension Acute peritonitis Chronic neuropathic pain Essential hypertension Zach's granulomatosis Swelling of right wrist Heartburn Generalized weakness Hospital discharge follow-up RLS (restless legs syndrome) Chronic insomnia Generalized weakness ESRD (end stage renal disease) on dialysis Chief Complaint CONSTIPATION SYNCOPE Syncope [facility] WOUND DEPRESSION/RESTLESS LEG Amb Documentation Reason for Visit Acute encephalopathy Acute peritonitis ESRD on peritoneal dialysis BPH (benign prostatic hyperplasia) Chronic kidney failure Essential hypertension Acute peritonitis Chronic neuropathic pain Essential hypertension Zach's granulomatosis Swelling of right wrist Heartburn Generalized weakness Hospital discharge follow-up RLS (restless legs syndrome) Chronic insomnia Generalized weakness ESRD (end stage renal disease) on dialysis Chief Complaint 3 M FU acute - discuss getting back on med 3 M FU Reason for Visit Chronic neuropathic pain RLS (restless legs syndrome) Essential hypertension Zach's granulomatosis Heartburn URI with cough and congestion Chronic insomnia Generalized weakness Shakiness ESRD on peritoneal dialysis Chronic neuropathic pain RLS (restless legs syndrome) Essential hypertension Prediabetes Zach's granulomatosis Elevated PSA Heartburn Chronic insomnia Generalized weakness Skin lesion Skin tear Chief Complaint Admit Date weakness April 19, 2024 1 :19pm BAD COUGH May 04, 2024 7:19am 3 M FU June 08, 2024 9 :42am Reason for Visit Admit Date Cough in adult May 04, 2024 7:19am Chronic neuropathic pain June 08 025 9:42am RLS (restless legs syndrome) May 9:42am Chronic back pain June 08, 2024 9 :42am Essential hypertension June 08 9:42am Prediabetes June 08, 2024 9 :42am Zach's granulomatosis June 08 025 9:42am Elevated PSA June 08, 2024 9 :42am Skin growth June 08, 2024 9 :42am Heartburn June 08, 2024 9 :42am Chronic insomnia June 08, 2024 9 :42am Generalized weakness June 08, 2024 9:42am Chief Complaint Admit Date 3 M FU September 07, 2024 8:2 4am ACUTE-ITCHY AREAS ON WRIST/ANKLE September 1:02pm Reason for Visit Admit Date Chronic neuropathic pain September 07 8:24am RLS (restless legs syndrome) September 07, 2024 8:24am Chronic back pain September 07, 2024 8:2 4am Essential hypertension September 07, 2024 8:24am Prediabetes September 07, 2024 8:2 4am Zach's granulomatosis September 07 8:24am Elevated PSA September 07, 2024 8:2 4am Heartburn September 07, 2024 8:2 4am Chronic insomnia September 07, 2024 8:2 4am Additional Source Comments (unrecognized sect ion and content) No Status Records FoundNo Status Records FoundNo Status Records FoundNo Status Records FoundNo Status Records FoundNo Status Records FoundNo Status Records FoundNo Status Records FoundNo Status Records Found INFORMATION SOURCE (unrecogn ized section and content) DATE CREATED AUTHOR 01/09/2018 [facility] DATE CREATED AUTHOR AUTHOR'S ORGANIZ ATION 08/04/2018 [facility] DATE CREATED AUTHOR AUTHOR[facility] ORGANIZ AT[facility] DATE CREATED AUTHOR AUTHOR'S ORGANIZ ATION 07/12/2021 [facility] DATE CREATED AUTHOR AUTHOR'S ORGANIZ ATION 12/01/2022 [facility] DATE CREATED AUTHOR AUTHOR'S ORGANIZ ATION 04/02/2023 [facility] DATE CREATED AUTHOR AUTHOR'S ORGANIZ ATION 12/03/[address] [facility] DATE CREATED AUTHOR AUTHOR'S ORGANIZ ATION 12/05/2024 [facility] DATE CREATED AUTHOR AUTHOR'S ORGANIZ ATION 12/06/2024 [facility] Reason for Visit (unrecogniz ed section and content) Reason Comments Reason Comments Abdominal Pain upper abdomen, yeste rday a little bit and worse this afternoon Fatigue 'a couple weeks, but worse the last 3-4 days' Chest Pain started 'a couple ho urs' ago Chills earlier today Shortness of Breath 'when i get tired, i loose my breath' Reason Comments Fatigue pt states he's been feeling weak for a couple weeks, this morning too weak to walk. Also c/o DUTTA, body aches and has fever 100.6. Had prostate surgery 04/06 and has been having urinary frequency but it stopped last night. 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 [place] [facility] Specialty Diagnoses / Procedures Referred By Dahlia rico Referred To Contact General Surgery Diagnoses Chronic kidney disease, stage 4 (severe) (HCC) Procedures WA OFFICE CONSULTATION NEW/ESTAB PATIENT 15 MIN Daniel Pacheco MD [address] [place] [id number] Elroy Thomas MD [address] [place] [id number] Referral ID Status Reason Start Date Expiration Date V isits Requested Visits Authorized [id number] Pending Review 12/13/2022 05/23/2023 1 1 Reason Onset Date Comments Release of Information 12/19/2022 Specialty Diagnoses / Procedures Referred By Dahlia rico Referred To Contact Diagnoses End stage renal disease (HCC) End stage renal disease (HCC) [N18.6] Procedures WA LAPS INSERTION TUNNELED INTRAPERITONEAL CATHETER WA LAPAROSCOPY W/OMENTOPEXY LAPAROSCOPIC CONTINUOUS AMBULATORY PERITONEAL DIALYSIS CATHETER PLACEMENT WITH OMENTOPEXY, POSSIBLE OPEN LAPAROSCOPY WITH OMENTOPEXY (OMENTAL TACKING PROCEDURE) Elroy Thomas MD [address] [place] [address] [facility] Main Or [address] [place] [address] Referral ID Status Reason Start Date Expiration Date Visits Re quested Visits Authorized [id number] 1 1 Reason Comments New Patient Right hip pain, h/o right ANGEL DOS 02/05/2016 Goals (unrecognized section and content) Goals may be documented in a n alternate sectionGoals may be documented in an alternate sectionGoals may be documented in an alternate sectionGoals may be documented in an alternate sectionGoals may be documented in an alternate sectionGoals may be documented in an alternate sectionGoals may be documented in an alternate sectionGoals may be documented in an alternate section Care Teams (unrecognized sec tion and content) Team Status: Active Member Role Status Dates RAHEL MATA Family Provider Active Dr. Matilde Noguera MD Primary Care Provider Active Team Status: Inactive Member Role Status Dates Dr. Matilde Noguera MD Primary Care Pro vider, Attending Provider, Referring Provider Active Team Status: Inactive Member Role Status Dates Dr. Matilde Noguera MD Primary Care Provider, Referri ng Provider Active Dr. Julio Davidson MD Attending Provider Active Team Status: Active Member Role Status Dates Dr. Matilde Noguera MD Primary Care Provider, Referri ng Provider Active Dr. Julio Davidson MD Attending Provider, Other Prov ider Active Team Status: Inactive Member Role Status Dates Dr. Matilde Noguera MD Primary Care Provider Active Dr. Kael Decker MD Attending Provider, Referr ing Provider Active Artist Manager Relationship Specialty Start Date End Date Rahel Mendez MD [address] [place] [address] PCP - General 10/17/18 Team Status: Inactive Member Role Status Dates Dr. Matilde Noguera MD Primary Care Provider Active Dr. Vinay Gomez MD Emergency Provider Active Team Status: Inactive Member Role Status Dates Dr. Matilde Noguera MD Primary Care Provider Active Dr. Vinay Gomez MD Attending Provider, Emergency Pro vider Active Team Status: Inactive Member Role Status Dates Dr. Matilde Noguera MD Primary Care Provider Active Dr. Beau Cardenas DO Emergency Provider Active Artist Manager Relationship Specialty Start Date End Date Rahel Mendez MD [address] [place] [address] PCP - General 10/17/18 Artist Manager Relationship Specialty Start Date End Date Rahel Mendez MD [address] [place] [address] PCP - General 10/17/18 Artist Manager Relationship Specialty Start Date End Date Rahel Mendez MD [address] [place] [id number] PCP - General 10/17/18 Artist Manager Relationship Specialty Start Date End Date Rahel Mendez MD [address] [place] [address] PCP - General 10/17/18 Artist Manager Relationship Specialty Start Date End Date Rahel Mendez MD [address] [place] [address] PCP - General 10/17/18 Artist Manager Relationship Specialty Start Date End Date Rahel Mendez MD [address] [place] [address] PCP - General 10/17/18 Artist Manager Relationship Specialty Start Date End Date Rahel Mendez MD [address] [place] [address] PCP - General 10/17/18 Team Status: Inactive Member Role Status Dates Dr. Matilde Noguera MD Primary Care Provider Active Dr. Beau Cardenas DO Attending Provider, Emergency Pr ovider Active Team Status: Inactive Member Role Status Dates Dr. Matilde Noguera MD Primary Care Provider Active Dr. Louie Aguilar DO Emergency Provider Active Team Status: Active Member Role Status Dates Dr. Matilde Noguera MD Primary Care Provider Active Dr. Tha Leblanc MD Emergency Provider Active Dr. Chey Bates MD Admit Provider, Attending Provid er Active Team Status: Active Member Role Status Dates Dr. Matilde Noguera MD Primary Care Provider Active Dr. Tha Leblanc MD Emergency Provider Active Dr. Chey Bates MD Admit Provider, At tending Provider, Other Provider Active Dr. Jazmyne Smith MD Other Provider Active Team Status: Inactive Member Role Status Dates Dr. Matilde Noguera MD Primary Care Provider Active Dr. Tha Leblanc MD Emergency Provider Active Dr. Chey Bates MD Admit Provider, Attending Provid er Active Dr. Jazmyne Smith MD Other Provider Active Team Status: Inactive Member Role Status Dates Dr. Matilde Noguera MD Primary Care Provider Active Dr. Louie Aguilar DO Attending Provider, Emergency P ben Active Team Status: Inactive Member Role Status Dates Dr. Matilde Noguera MD Primary Care Provider Active Dr. Maegan Donohue MD Emergency Provider Active Team Status: Inactive Member Role Status Dates Dr. Matilde Noguera MD Primary Care Provider, Attendi ng Provider Active Team Status: Inactive Member Role Status Dates Dr. Matilde Noguera MD Primary Care Provider Active Dr. Maegan Donohue MD Attending Provider, Emergency Provider Active Team Status: Active Member Role Status Dates Dr. Matilde Noguera MD Primary Care Provider Active Rose White MA Attending Provider Active Team Status: Inactive Member Role Status Dates Dr. Matilde Noguera MD Primary Care Provider Active Ally Pruitt Attending Provider, Referring Provide r Active Team Status: Inactive Member Role Status Dates Dr. Matilde Noguera MD Primary Care Provider, Referri ng Provider Active José Miguel Ruelas PA, PA Attending Provider Active Team Status: Inactive Member Role Status Dates Dr. Matilde Noguera MD Primary Care Provider Active Start: April 19, 2024 End: April 19, 2024 Dr. Jesus Christian DO Attending Provider Active Start: April 19, 2024 End: April 19, 2024 Dr. Jesus Christian DO Emergency Provider Active Start: April 19, 2024 End: April 19, 2024 Team Status: Inactive Member Role Status Dates Dr. Matilde Noguera MD Primary Care Provider Active Start: May 04, 2024 End: May 04, 2024 Dr. Matilde Noguera MD Attending Provider Active Start: May 04, 2024 End: May 04, 2024 Dr. Matilde Noguera MD Referring Provider Active Start: May 04, 2024 End: May 04, 2024 Team Status: Inactive Member Role Status Dates Dr. Matilde Noguera MD Primary Care Provider Active Start: June 08, 2024 End: June 08, 2024 Dr. Matilde Noguera MD Attending Provider Active Start: June 08, 2024 End: June 08, 2024 Dr. Matilde Noguera MD Referring Provider Active Start: June 08, 2024 End: June 08, 2024 Team Status: Inactive Member Role Status Dates Dr. Matilde Noguera MD Primary Care Provider Active Start: July 20, 2024 End: July 20, 2024 Dr. Kael Decker MD Attending Provider Active Start: July 20, 2024 End: July 20, 2024 Dr. Kael Decker MD Referring Provider Active Start: July 20, 2024 End: July 20, 2024 Team Status: Inactive Member Role Status Dates Dr. Matilde Noguera MD Primary Care Provider Active Start: September 07, 2024 End: September 07, 2024 Dr. Matilde Noguera MD Attending Provider Active Start: September 07, 2024 End: September 07, 2024 Dr. Matilde Noguera MD Referring Provider Active Start: September 07, 2024 End: September 07, 2024 Team Status: Inactive Member Role Status Dates Dr. Matilde Nougera MD Primary Care Provider Active Start: October 15, 2024 End: October 15, 2024 Dr. Matilde Noguear MD Referring Provider Active Start: October 15, 2024 End: October 15, 2024 JULIUS Thomas Attending Provider Active St art: October 15, 2024 End: October 15, 2024 Artist Manager Relationship Specialty Start Date End Date Matilde Noguera MD [address] [address] PCP - General Internal Medicine 11/25/24 Source Comments (unrecognize d section and content) In the event this informatio n is protected by the Federal Confidentiality of Alcohol and Drug Abuse Patient Records regulations: The Federal rules restrict any use of the information to criminally investigate or prosecute any alcohol or drug abuse patient.[facility] Scheduled Active and Recently Administ ered Medications (unrecognized section and content) Medication Order 12/29/2022 12/30/2022 12/31/2022 acetaminophen (Tylenol) tablet 1,000 mg (COMPLETED) 1,000 mg, Oral, Once, On Fri12/31/22 at 1245, For 1 dose, Preprocedure, Maximum dose of acetaminophen is 4000 mg from all sources in 24 hours. Do not administer if patient has taken tylenol <4 hours earlier. Do not give if contraindicated ie. patient has active liver disease or cirrhosis. 1257 (Given - Provid er: Lyndsey Chun RN) ceFAZolin in dextrose 4% (Ancef) IVPB 2,000 mg (COMPLETED) 2,000 mg, IntraVENous, Administer over 30 Minutes, Marine Railway Operator to O.R., On Fri12/31/22 at 1245, For 1 dose, Preprocedure, Administer within 1 hour prior to incision. Recommend to repeat in 3-4 hours after initial dose if still intra-op. premix bag, Suspected Indication (Select all that apply): Surgical Prophylaxis 1355 (Given - Provid er: Rambo Cervantes APRN - DISTILLATION OPERATOR) famotidine (Pepcid) tablet 20 mg (COMPLETED) 20 mg, Oral, Once, On Fri12/31/22 at 1245, For 1 dose, Preprocedure 1258 (Given - Provid er: Lyndsey Chun RN) sodium chloride 0.9% (NS) flush 10 mL 10 mL, IntraVENous, Every 12 hours scheduled (2 times per day), First dose on Fri12/31/22 at 2100, Preprocedure sodium chloride 0.9% (NS) flush 5-40 mL 5-40 mL, IntraVENous, Every 12 hours, First dose on Fri12/31/22 at 1245, Preprocedure, For Line Patency: Peripheral IV = 5 mL; Midline or Central Line = 10 mL/lumen. If following IV push medication, administer flush at same rate as the IV push. Flush volume is determined by type of infusion therapy being given. For non-viscous solutions use: Peripheral IV = 5 mL Midline or Central Line = 10 mL/lumen For viscous solutions (i.e. blood components, parenteral nutrition, contrast media, or after obtaining blood sample) use: Peripheral IV = 10 mL Midline or Central Line = 20 mL/lumen 1245 (Canceled Entry - Provider: Automatic Discharge Provider - Comment: Automatically canceled at discontinue of medication order) Continuous Medication Order 12/29/2022 12/30/2022 12/31/2022 sodium chloride 0.9 % infusion 50 mL/hr, IntraVENous, Continuous, Starting on Fri12/31/22 at 1245, Preprocedure, Upon admission to sameday - please start iv if patient does not have iv access. 1258 (New Bag - Prov ider: Lyndsey Chun RN)1341 (Paused - Provider: DENISHA Adams CRNA - Comment: Switch to gravity)1342 (Restarted - Provider: DENISHA Adams CRNA)1421 (Stopped - Provider: DENISHA Adams CRNA) PRN Medication Order 12/29/2022 12/30/2022 12/31/2022 ALPRAZolam (Xanax) disintegrating tablet 0.25 mg (COMPLETED) 0.25 mg, Oral, PRN, anxiety, Starting on Fri12/31/22 at 1233, For 1 dose, Preprocedure, Using dry hands, place tablet on top of tongue and allow to disintegrate. Administration with water is not necessary. 1258 (Given - Provid er: Lyndsey Chun RN) bacitracin-polymyxin b (Polysporin) ointment (CANCELED) As needed, Starting on Fri12/31/22 at 1417, Intraprocedure 1417 (Given - Provid er: Elroy Thomas MD - Comment: catheter site) fentaNYL (Sublimaze) injection 25 mcg (CANCELED) 25 mcg, IntraVENous, Every 5 min PRN, moderate pain (4-6), Starting on Fri12/31/22 at 1427, For 3 doses, Recovery (only), Phase I and Phase II- Initial therapy for moderate pain (4-6). Restricted to a 90 minute time frame starting when the patient can verbally state their pain score. If after 2 doses the pain score does not decrease by more than one point, then call the provider. If oral meds are utilized, do not return to initial therapy medications. 1500 (Given - Provid er: Freda Avila RN) heparin flush injection (CANCELED) As needed, Starting on Fri12/31/22 at 1252, Intraprocedure 1252 (Given - Provid er: Elroy Thomas MD - Comment: TO FLUSH CATHETER) sodium chloride 0.9 % infusion 5-250 mL/hr, IntraVENous, PRN, if patient receiving piggyback infusions and maintenance fluids are not ordered OR KVO fluids to protect IV site / prevent frequent line interruptions/ long duration, Starting on Fri12/31/22 at 1233, Preprocedure, For piggyback infusion, administer at same rate as piggyback for a total of 25 mL. Enter 25 mL into dose field and piggyback rate into rate field of order. If piggyback is infusing at a rate less than 100 mL/hr, enter 25 mL into dose field and 100 mL/hr into rate field of order. For KVO fluids, enter rate of 20 mL/hr or less into rate field of order. sodium chloride 0.9 % infusion 5-250 mL/hr, IntraVENous, PRN, if patient receiving piggyback infusions and maintenance fluids are not ordered OR KVO fluids to protect IV site / prevent frequent line interruptions / long duration, Starting on Fri12/31/22 at 1233, Preprocedure, For piggyback infusion, administer at same rate as piggyback for a total of 25 mL. Enter 25 mL into dose field and piggyback rate into rate field of order. If piggyback is infusing at a rate less than 100 mL/hr, enter 25 mL into dose field and 100 mL/hr into rate field of order. For KVO fluids, enter rate of 20 mL/hr or less into rate field of order. sodium chloride 0.9% (NS) flush 10 mL 10 mL, IntraVENous, PRN, line care, Starting on Fri12/31/22 at 1233, Preprocedure, After every IV line use sodium chloride 0.9% (NS) flush 5-40 mL 5-40 mL, IntraVENous, PRN, line care, After every IV line use, Starting on Fri12/31/22 at 1233, Preprocedure, For Line Patency: Peripheral IV = 5 mL; Midline or Central Line = 10 mL/lumen. If following IV push medication, administer flush at same rate as the IV push. Flush volume is determined by type of infusion therapy being given. For non-viscous solutions use: Peripheral IV = 5 mL Midline or Central Line = 10 mL/lumen For viscous solutions (i.e. blood components, parenteral nutrition, contrast media, or after obtaining blood sample) use: Peripheral IV = 10 mL Midline or Central Line = 20 mL/lumen sterile water irrigation solution (CANCELED) As needed, Starting on Fri12/31/22 at 1251, Intraprocedure 1251 (Given - Provid er: Elroy Thomas MD - Comment: ESPINOZA TEMPLE) Scheduled Medication Order 11/28/2024 11/29/2024 11/30/2024 acetaminophen (Tylenol) tablet 500 mg 500 mg, Oral, Every 8 hours, First dose on Fri11/30/24 at 0600, Maximum dose of acetaminophen is 4000 mg from all sources in 24 hours. 1310 (Given - Provider: Glen Hall) atorvastatin (Lipitor) tablet 40 mg 40 mg, Oral, Nightly, First dose on Fri11/25/24 at 2100 2106 (Given - Provider: Lucero Coelho RN) 2140 (Given - Provider: Madisyn Pereira SEBAS) azaTHIOprine (Imuran) tablet 50 mg 50 mg, Oral, Daily With Lunch, First dose on Fri11/25/24 at 1200 0836 (Given - Provider: Nia Alonso) 1247 (Given - Provider: Glen Hall) 1009 (Given - Provider: Glen Hall) capsaicin (Zostrix) 0.025 % cream Topical, 2 times daily, First dose on Fri11/29/24 at 1330 1901 (Not Given - Provider: Glen De La O RN - Reason: Patient not available)2139 (Given - Provider: Madisyn Pereira RN) 101 (Given - Provider: Glen Hall) clopidogrel (Plavix) tablet 75 mg 75 mg, Oral, Daily, First dose on Fri11/25/24 at 0900 0837 (Given - Provider: Nia Alonso) 102 (Given - Provider: Glen Hall) 100 (Given - Provider: Glen Hall) gabapentin (Neurontin) capsule 200 mg (CANCELED) 200 mg, Oral, Nightly, First dose on Fri11/25/24 at 2100 210 (Given - Provider: Lucero Coelho RN) 2139 (Given - Provider: Madisyn Pereira RN) gabapentin (Neurontin) capsule 300 mg 300 mg, Oral, Nightly, First dose (after last modification) on Fri11/30/24 at 2100 heparin injection 5,000 Units 5,000 Units, SubCUTAneous, Every 12 hours scheduled (2 times per day), First dose on Fri11/25/24 at 0900 0837 (Not Given - Provider: Nia Alonso - Reason: Patient/family refused)2104 (Given - Provider: Lucero Coelho, SEBAS) 102 (Given - Provider: Glen Hall)2138 (Not Given - Provider: Madisyn Pereira RN - Reason: Patient/family refused) 101 (Not Given - Provider: Glen Hall - Reason: Patient/family refused) hydrOXYzine pamoate (Vistaril) capsule 25 mg (COMPLETED) 25 mg, Oral, Once, On Fri11/28/24 at 1930, For 1 dose 2103 (Given - Provider: Lucero Coelho, ESBAS) melatonin tablet 5 mg 5 mg, Oral, Nightly, First dose on 11/28/24 at 2345 2341 (Given - Provider: Lucero Coelho RN) 2138 (Given - Provider: Madisyn Pereira, SEBAS) metoprolol tartrate (Lopressor) tablet 25 mg 25 mg, Oral, 2 times daily, First dose on Samia 11/25/24 at 0900 0837 (Given - Provider: Nia Alonso)210 (Given - Provider: Lucero Coelho RN) 1022 (Given - Provider: Glen Hall)214 (Given - Provider: Madisyn Pereira RN) 1009 (Given - Provider: Glen Hall) phosphorus (K Phos Neutral) tablet 1 tablet (COMPLETED) 1 tablet (250 mg), Oral, Once, On 11/28/24 at 1600, For 1 dose, Each tablet contains 250 mg phosphorus, 298 mg sodium, 1.1 mEq potassium. 1727 (Given - Provider: Nia Alonso) QUEtiapine (SEROquel) tablet 25 mg 25 mg, Oral, Nightly, First dose on Fri11/27/24 at 2100 2106 (Given - Provider: Lucero Coelho RN) 2138 (Given - Provider: Madisyn Pereira RN) senna-docusate sodium (Senokot-S) 8.6-50 MG tablet 2 tablet 2 tablet, Oral, Daily, First dose on Fri11/26/24 at 2100 0842 (Given - Provider: Nia Alonso) 1022 (Given - Provider: Glen Hall) 1009 (Given - Provider: Glen Hall) sodium chloride 0.9% (NS) flush 5-40 mL 5-40 mL, IntraVENous, Every 12 hours, First dose on Samia 11/25/24 at 0630, For Line Patency: Peripheral IV = 5 mL; Midline or Central Line = 10 mL/lumen. If following IV push medication, administer flush at same rate as the IV push. Flush volume is determined by type of infusion therapy being given. For non-viscous solutions use: Peripheral IV = 5 mL Midline or Central Line = 10 mL/lumen For viscous solutions (i.e. blood components, parenteral nutrition, contrast media, or after obtaining blood sample) use: Peripheral IV = 10 mL Midline or Central Line = 20 mL/lumen 0544 (Given - Provider: Lucero Coelho, RN)1732 (Given - Provider: Nia Alonso) 0548 (Given - Provider: Lucero Coelho, SEBAS)1739 (Not Given - Provider: Glen De La O RN - Reason: Patient not available) 0546 (Given - Provider: Madisyn Pereira, SEBAS) tamsulosin (Flomax) 24 hr capsule 0.4 mg 0.4 mg, Oral, Daily, First dose on Fri11/25/24 at 0900, Do not crush, chew, or split. 0837 (Given - Provider: Nia Alonso) 1022 (Given - Provider: Glen Hall) 1009 (Given - Provider: Glen Hall) PRN Medication Order 11/28/2024 11/29/2024 11/30/2024 benzocaine (Hurricaine) 20 % mouth spray 2 spray 2 spray, Mouth/Throat, PRN, sore throat, Starting on Fri11/28/24 at 1049 1249 (Given - Provider: Glen Hall) 1012 (Given - Provider: Glen Hall) carboxymethylcellulose PF (Refresh Plus) 0.5 % ophthalmic solution 1 drop 1 drop, Both Eyes, 4 times daily PRN, dry eyes, Starting on Fri11/26/24 at 1307 dextrose 5 % infusion 100 mL/hr, IntraVENous, PRN, Blood sugar less than 70mg/dL, Starting on Samia 11/25/24 at 1710, Start infusion following administration of dextrose 50% or glucagon. dextrose 50 % solution 12.5 g 12.5 g, IntraVENous, PRN, low blood sugar, Blood glucose less than 70 mg/dL and patient NOT ALERT or NPO., Starting on Samia 11/25/24 at 1710, If patient does not respond within 5 minutes, repeat dose x1. Start D5W at 100 mL/hour until ordering provider can be reached. Repeat blood glucose in 15 minutes. If blood glucose is less than 70 mg/dL, repeat treatment and recheck blood glucose in 15 minutes x2. If using Glucostabilizer, dose as instructed per system. glucagon (human recombinant) injection 1 mg 1 mg, IntraMUSCular, PRN, low blood sugar, Blood glucose less than 70 mg/dL and patient NOT ALERT or NPO and does not have IV access., Starting on Samia 11/25/24 at 1710, After administration, attempt intravenous access and start D5W at 100 mL/hr. Repeat blood glucose in 15 minutes x2 and notify provider. glucose oral gel 15 g 15 g, Oral, As needed, low blood sugar, Starting on Samia 11/25/24 at 1710, If blood glucose less than 50 mg/dL and patient ALERT and NOT NPO, give 2 tubes glucose gel. If blood glucose less than 70 mg/dL and patient ALERT and NOT NPO, give 1 tube glucose gel. Repeat blood glucose in 15 minutes. If blood glucose is less than 70 mg/dL, repeat treatment and recheck blood glucose in 15 minutes x2 and notify provider. haloperidol (Haldol) tablet 2 mg (COMPLETED)(Linked Group 1) 2 mg, Oral, Once PRN, agitation, Starting on Fri11/28/24 at 0229, For 1 dose 0246 (Given - Provider: Lucero Coelho, SEBAS) haloperidol (Haldol) tablet 2 mg (COMPLETED)(Linked Group 2) 2 mg, Oral, Once PRN, agitation, Starting on Fri11/28/24 at 2337, For 1 dose 2341 (Given - Provider: Lucero Coelho, SEBAS) haloperidol lactate (Haldol) injection 0.5 mg 0.5 mg, IntraMUSCular, Every 6 hours PRN, agitation, second line for agitation, [place] PRN Haldol for ONLY if danger to self/others/treatment, Starting on Fri11/29/24 at 1243, IM route of administration preferred. Because of the risk of TdP and QT prolongation, ECG monitoring is recommended if haloperidol is given IV naloxone (Narcan) injection 0.4 mg 0.4 mg, IntraVENous, Every 5 min PRN, opioid reversal, respiratory depression, Starting on Fri11/30/24 at 0637, +++ For RR <10, pinpoint pupils, over sedation for opioid reversal - MUST notify fuel conversion technician provider immediately after first dose, may give IM or SQ if no IV access +++ oxyCODONE-acetaminophen (Percocet) 5-325 MG per tablet 1 tablet 1 tablet, Oral, Every 6 hours PRN, severe pain (7-10), Starting on Fri11/30/24 at 0600, Maximum dose of acetaminophen is 4000 mg from all sources in 24 hours. perflutren protein A microsphere (Optison) 3 mL in sodium chloride (PF) 0.9 % 10 mL IV 0-10 mL, IntraVENous, IMG once PRN, other, Suboptimal echo image, Starting on Fri11/28/24 at 0230, For 1 dose, CV Procedural Medications, Administer via slow IVP for suboptimal echocardiogram enhancement. May administer as divided doses to reach optimal image enhancement polyethylene glycol (PEG) 3350 (Miralax) packet 17 g 17 g, Oral, Daily PRN, constipation, Starting on Samia 11/25/24 at 0619, 1st line for treatment of constipation - give scheduled if no bowel movement in past 24 hours. QUEtiapine (SEROquel) tablet 12.5 mg 12.5 mg, Oral, 2 times daily PRN, agitation, first line for agitation,[place] PRN Seroquel for ONLY if danger to self/others/treatment, Starting on Fri11/29/24 at 1242 simethicone (Mylicon) chewable tablet 80 mg 80 mg, Oral, 4 times daily PRN, flatulence, Starting on Fri11/26/24 at 2049 sodium chloride 0.9 % infusion 5-250 mL/hr, IntraVENous, PRN, if patient receiving piggyback infusions and maintenance fluids are not ordered OR KVO fluids to protect IV site / prevent frequent line interruptions / long duration, Starting on Samia 11/25/24 at 0619, For piggyback infusion, administer at same rate as piggyback for a total of 25 mL. Enter 25 mL into dose field and piggyback rate into rate field of order. If piggyback is infusing at a rate less than 100 mL/hr, enter 25 mL into dose field and 100 mL/hr into rate field of order. For KVO fluids, enter rate of 20 mL/hr or less into rate field of order. sodium chloride 0.9% (NS) flush 5-40 mL 5-40 mL, IntraVENous, PRN, line care, After every IV line use, Starting on Samia 11/25/24 at 0619, For Line Patency: Peripheral IV = 5 mL; Midline or Central Line = 10 mL/lumen. If following IV push medication, administer flush at same rate as the IV push. Flush volume is determined by type of infusion therapy being given. For non-viscous solutions use: Peripheral IV = 5 mL Midline or Central Line = 10 mL/lumen For viscous solutions (i.e. blood components, parenteral nutrition, contrast media, or after obtaining blood sample) use: Peripheral IV = 10 mL Midline or Central Line = 20 mL/lumen Linked Groups Order Group 1: haloperidol (Haldol) tablet 2 mg (COMPLETED)Jump to med 2 mg, Oral, Once PRN, agitation, Starting on 11/28/24 at 0229, For 1 dose Or haloperidol lactate (Haldol) injection 2 mg (COMPLETED) 2 mg, IntraMUSCular, Once PRN, agitation, Starting on 11/28/24 at 0229, For 1 dose, Unable to IM route of administration preferred. Because of the risk of TdP and QT prolongation, ECG monitoring is recommended if haloperidol is given IV Group 2: haloperidol (Haldol) tablet 2 mg (COMPLETED)Jump to med 2 mg, Oral, Once PRN, agitation, Starting on 11/28/24 at 2337, For 1 dose Or haloperidol lactate (Haldol) injection 2 mg (COMPLETED) 2 mg, IntraMUSCular, Once PRN, agitation, Starting on 11/28/24 at 2337, For 1 dose, Unable to IM route of administration preferred. Because of the risk of TdP and QT prolongation, ECG monitoring is recommended if haloperidol is given IV FOR RECORDS PERTAINING TO PATIENTS WHO ARE OR HAVE BEEN ENROLLED IN A CHEMICAL DEPENDENCY/SUBSTANCEABUSE PROGRAM, SOME INFORMATION MAY BE OMITTED. This clinical summary was aggregated from multiple sources. Caution should be exercised in using it in the provision of clinical care. This summary normalizes information from multiple sources, and as a consequence, information in this document may materially change the coding, format and clinical context of patient data. In addition, data may be omitted in some cases. CLINICAL DECISIONS SHOULD BE BASED ON THE PRIMARY CLINICAL RECORDS. [facility]. provides no warranty or guarantee of the accuracy or completeness of information in this document.
[2024-12-08 02:56] LABS: Red Blood Cells-Urine 5-10 SEEN /hpf (0-5)
[2024-12-08 03:00] VITALS: BP 125/82; PULSE 94; RESP 18; O2SAT 98
--- NOTE | 2024-12-08 04:24 | EX.ED.DYSGE1 ---
HPI History of Present Illness Chief Complaint: General Illness Informant: patient and spouse/S.O. Narrative Narrative: Patient is a 79-year-old male with past medical history of hypertension chronic renal failure on dialysis restless leg syndrome and BPH. The patient receives dialysis on Friday and Friday and did so on Friday as he normally would. According to patient and he has been very fatigued/lethargic this evening. He states that there has been no fever or chills and no associated abdominal pain nausea vomiting or diarrhea. He states he still urinates and has been doing so without any type of dysuria. However this evening the states she found him sitting on the toilet fully clothed and slow to respond. Secondary to this he was brought in for evaluation. [facility] Medical History Dialysis patient Wears hearing aid Wears dentures Wears glasses Arthritis Prostate disease Anemia History of renal disease Back pain Gastric reflux Neuropathy History of edema History of CHF (congestive heart failure) History of echocardiogram Normal stress echocardiogram Cardiology follow-up encounter Family history of malignant neoplasm of colon Rheumatoid arthritis GERD (gastroesophageal reflux disease) Former smoker Irregular heart beat Chronic systolic heart failure Hard of hearing Obstructive sleep apnea Zach's granulomatosis BPH (benign prostatic hyperplasia) Chronic kidney disease, stage 3 (moderate) Claudication Prediabetes Essential hypertension History of tobacco use Shortness of breath Chest pain Abnormal stress echo Home Medications Medication Instructions Recorded Last Taken Type handicap placard #1 ea 08/29/22 Unknown Rx handicap placard #1 ea 03/12/23 Unknown Rx triamcinolone acetonide 0.1 % 1 applic topical DAILY PRN 09/09/23 Unknown Rx topical ointment rash/itching #15 grams mirtazapine 15 mg tablet 15 mg PO QHS #90 tabs 06/08/24 Unknown Rx omeprazole 40 mg capsule,delayed 40 mg PO DAILY stomach #90 caps 07/26/24 Unknown Rx release metoprolol tartrate 25 mg tablet 25 mg PO DAILY BP #90 tabs 09/13/24 Unknown Rx melatonin 3 mg capsule 3 mg PO HS PRN sleep #30 caps 10/14/24 Unknown Rx magna life topical 10/15/24 Unknown History tamsulosin 0.4 mg capsule 0.8 mg (2 x 0.4 mg) PO QDAY #60 11/15/24 Unknown Rx caps gabapentin 100 mg capsule 300 mg PO QHS 12/07/24 Unknown History ropinirole 0.25 mg tablet 0.25 mg PO QHS #30 tabs 12/07/24 Unknown Rx Allergy/AdvReac Type Severity Reaction Status Date / Time finasteride Allergy Intermediate mastodynia Verified 12/08/24 01:20 aspirin AdvReac Severe cannot Verified 12/08/24 01:20 take d/t Zach's Vasculitis Family History Mother CAD (coronary artery disease) Congestive heart failure Father Prostate cancer Lung cancer Brother Colon cancer Sister Colon cancer Grandmother Diabetes Surgical History Hx of bilateral cataract extraction S/P TURP Cataract extraction status AV fistula History of left heart catheterization (11/12/18) History of endoscopy (01/02/16) History of prostate biopsy (01/11/14) S/P arthroscopic surgery of left knee (1989) H/O arthroscopy of left knee (1988) Status post biopsy of kidney (12/2013) History of total right hip arthroplasty (02/05/16) History of colonoscopy Social History household members: spouse housing: house 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 Smoking Status: Former smoker quit date: 07/26/81 pack-years: 19 Electronic Cigarette Use: not used alcohol intake: never substance use type: does not use what type of physical activity do you participate in: none seatbelt use: always do you feel safe at home: Yes ROS ROS ED Constitutional Constitutional ED: Denies chills or fever(s) Eyes Eyes: Denies change in vision ENT ENT ED: Denies sore throat Cardiovascular Cardiovascular: Denies chest pain or palpitations Respiratory/Chest Respiratory/Chest: Denies cough or dyspnea Gastrointestinal Gastrointestinal: Denies abdominal pain, diarrhea, nausea or vomiting Genitourinary Genitourinary ED: Denies dysuria Musculoskeletal Musculoskeletal: Denies myalgias Integumentary Denies rash Neurologic Neurologic: Reports weakness EXAM Physical Exam Const Vital Signs: 12/08/24 01:16 12/08/24 01:21 12/08/24 03:00 Temperature 97.7 F L Temperature Source Oral Pulse Rate 86 94 Respiratory Rate 17 18 Respiratory Effort Normal Blood Pressure 121/66 H 125/82 H Blood Pressure Mean 84 96 Pulse Ox 99 98 Oxygen Delivery Method Room Air Room Air 12/08/24 04:37 Temperature 98.3 F Temperature Source Pulse Rate 99 Respiratory Rate 19 H Respiratory Effort Blood Pressure 124/78 H Blood Pressure Mean 93 Pulse Ox 95 Oxygen Delivery Method Positive well nourished, well developed and obese General Appearance ED: well developed; Negative for pallor Nutritional Appearance: obese HEENT Reports dry mucous membranes HEENT Narrative: Normocephalic atraumatic No tongue or lip swelling no oral lesions no airway edema or compromise; no secondary findings in the posterior pharynx to suggest infection Mucous membranes are dry and tacky however Mouth ED: Yes dry mucous membranes Mouth: dry mucous membranes Eyes PERRL and EOMs intact bilaterally General Eye ED: Negative for scleral icterus Neck supple Neck Narrative: No nuchal rigidity or meningeal signs Resp normal respiratory effort and clear to auscultation bilaterally Resp Narrative: Breath sounds are diminished throughout but overall clear to auscultation without nasal flaring retractions tachypnea or accessory muscle use Cardio regular rate and regular rhythm GI normal to inspection, nondistended, normoactive bowel sounds, non-tender, non-distended and no masses GI Narrative: Abdomen is soft nontender nondistended with normal active bowel sounds No voluntary guarding or rigidity or pulsatile mass No peritoneal signs No pain over McBurney's point Auscultation: normoactive bowel sounds Palpation: soft Extremity normal to inspection Extremity Narrative: No signs of long bone injury such as bony deformity or joint effusion Compartments are soft and compressible going against compartment syndrome Fistula is present in the left upper arm with palpable thrill and good bruit Neuro oriented x3, CN's II-XII intact bilaterally and no sensory deficits noted Neuro Narrative: GCS of 15 Cranial nerves II through XII are grossly intact without focal neurologic deficit No pronator drift no dysmetria no truncal ataxia NIH stroke scale score of 0 Sensorium / Orientation: alert Motor Exam: strength 5/5 throughout Psych Psych Narrative: Patient has a depressed/flat affect Skin No skin turgor normal Skin Narrative: Skin turgor is increased consistent with dehydration However no overlying soft tissue skin changes to suggest trauma or infection General Skin Exam: Negative for jaundice or pallor MDM MDM MDM Narrative Medical decision making narrative: Patient arrived to the ER with stable vital. He is awake and alert and oriented with a nonfocal neurologic exam. History and exam is concerning for a near syncopal event. Patient's physical exam suggest that dehydration/orthostatics is the main component for this. However in order to ensure he does not have a brain mass or spontaneous subarachnoid and subdural hemorrhage versus an infectious process such as pneumonia or UTI or clinically significant electrolyte problems such as hyper or hypokalemia or phosphatemia I did elect to perform basic laboratory studies with chest x-ray and head CT. Head CT revealed no acute findings. Chest x-ray questioned atelectasis versus infiltrate on the left. However the patient does not have a fever he is not coughing he is not in respiratory distress he does not have a white count or left shift indicating this is most likely atelectasis. Urine sample also shows no signs of overt infection. His potassium and phosphorus are also in normal range going against an acute electrolyte abnormality. As the patient's history and physical exam is most consistent with dehydration he was given 2 500 mL fluid boluses. After receiving this his vitals remained stable and he was able to ambulate with steady gait. Therefore this time I do not feel there is need for antibiotics as the patient is afebrile without white count or left shift and his workup does not suggest pneumonia or UTI. The history exam and workup is most consistent with dehydration is at his been corrected with fluid I do not feel the need for further intervention and patient is otherwise safe for discharge. This plan of care was discussed with patient and and as the patient was able to ambulate with out bouts of syncope they report they do feel comfortable heading home History & Record Review Discussion w/independent historian: Patient and Significant other Lab Data Attestation: I reviewed the patient's lab results. Labs: Laboratory Results - last 24 hr 12/08/24 12/08/24 01:22 02:30 WBC 6.5 RBC 3.56 L Hgb 10.8 L Hct 33.2 L MCV 93.3 MCH 30.3 MCHC 32.5 RDW Std Deviation 46.2 H RDW Coeff of Misael 13.5 Plt Count 167 MPV 9.7 Immature Gran % (Auto) 0.600 Neut % (Auto) 86.7 H Lymph % (Auto) 6.5 L [place] % (Auto) 4.3 Eos % (Auto) 1.1 Baso % (Auto) 0.8 Absolute Neuts (auto) 5.6 Absolute Lymphs (auto) 0.42 L Nucleated RBC % 0 Sodium 134 Potassium 4.2 Chloride 97 L Carbon Dioxide 25.8 Anion Gap 11 BUN 20 H Creatinine 3.95 H Estim Creat Clear Calc 17.61 L Est GFR (MDRD) Non-Af 15 L BUN/Creatinine Ratio 5.1 L Glucose 139 H Calcium 9.2 Phosphorus 2.8 Magnesium 2.0 Urine Color Yellow Urine Clarity Clear Urine pH 7.0 Ur Specific [place] 1.010 Urine Protein 30 H Urine Glucose (UA) 50 H Urine Ketones Negative Urine Occult Blood 10 H Urine Nitrite Negative Urine Bilirubin Negative Urine Urobilinogen Normal Ur Leukocyte Esterase 100 H Urine RBC 5-10 SEEN Urine WBC 50-100 SEEN Ur Squamous Epith Cells 0 SEEN Urine Bacteria RARE Urine Mucus 0 SEEN Radiography Diagnostic Testing: Clinical Impression(s) from Imaging Studies Brain CT 12/08/24 01:44 IMPRESSION: No acute intracranial findings Reading Location: [facility] Chest X-Ray 12/08/24 01:55 IMPRESSION: There is faint left mid and lower lung zone airspace opacity, atelectasis/consolidation. Recommend follow up imaging. Reading Location: [facility] Chest x-ray as interpreted by the emergency medicine physician shows atelectasis in the left lung base without acute infiltrate or pneumothorax or pleural effusion Discharge Plan Triage Chief Complaint: General Illness Other Complaint: Alt LOC ED Provider: Beau Cardenas Dx/Rx/DC Orders Clinical Impression: Dehydration, Near syncope, BPH (benign prostatic hyperplasia), RLS (restless legs syndrome), Essential hypertension, End stage renal disease on dialysis Instructions: ED Dehydration (Adult), ED Near-Fainting, Uncertain Cause Prescriptions: No Action (DME) handicap placard See Rx Instructions .ROUTE .MEDSUPPLY Qty: 1 0RF Rx Instructions: Length of time: 5 years Diagnosis: Impaired physical mobility z74.09 (DME) handicap placard See Rx Instructions .ROUTE .MEDSUPPLY Qty: 1 0RF Rx Instructions: Length of time: 5 years Diagnosis: Impaired physical mobility z74.09 triamcinolone acetonide 0.1 % ointment 1 applic topical DAILY PRN (Reason: rash/itching) Qty: 15 0RF mirtazapine 15 mg tablet 15 mg PO QHS Qty: 90 1RF gabapentin 100 mg capsule 300 mg PO QHS ropinirole 0.25 mg tablet 0.25 mg PO QHS Qty: 30 0RF magna life topical Rx Instructions: magna life cream topically to bilateral feet every evening omeprazole 40 mg capsule,delayed release(DR/EC) 40 mg PO DAILY Qty: 90 1RF metoprolol tartrate 25 mg tablet 25 mg PO DAILY Qty: 90 1RF melatonin 3 mg capsule 3 mg PO HS PRN (Reason: sleep) Qty: 30 0RF tamsulosin 0.4 mg capsule 0.8 mg PO QDAY Qty: 60 1RF Primary Care Provider: Catalina Noguera Referrals: Catalina Noguera MD [Primary Care Provider] - Activity Restrictions/Additional Instructions: Your workup today did not show any signs of acute stroke or abnormal heart rhythm or signs of infection such as a UTI or pneumonia. Your history and physical exam is most consistent with dehydration. Please still obtain your dialysis today but inform them of your need for the ER visit and IV fluids as this should prompt them to not take so much fluid off during your session. Continue all of your home medications as directed by your doctor and return to the ER should you have any further concerns Print Language: Mohawk Disposition Disposition: Home, Self Care Discharge Date/Time: 12/08/24 04:39
[2024-12-08 04:37] VITALS: BP 124/78; PULSE 99; RESP 19; TEMP 36.8; O2SAT 95
== END 2024-12-08 04:39 | disposition home or self-care (01) ==
PROVIDERS: Emergency Provider Emergency Medicine; PCP Internal Medicine; Visit Provider Emergency Medicine
DX: E86.0 Dehydration (principal); I13.2 Hypertensive heart and chronic kidney disease with heart failure and with stage 5 chronic kidney disease, or end stage renal disease; N18.6 End stage renal disease; M06.9 Rheumatoid arthritis, unspecified; I50.22 Chronic systolic (congestive) heart failure; R55 Syncope and collapse; E66.9 Obesity, unspecified; Z99.2 Dependence on renal dialysis; N40.0 Benign prostatic hyperplasia without lower urinary tract symptoms; K21.9 Gastro-esophageal reflux disease without esophagitis; G62.9 Polyneuropathy, unspecified; G25.81 Restless legs syndrome; G47.33 Obstructive sleep apnea (adult) (pediatric); Z79.899 Other long term (current) drug therapy; Z87.891 Personal history of nicotine dependence
CPT/HCPCS: 70450; 71045; 80048; 81001; 83735; 84100; 85025; 93005; 96360; 99283; A4216

== ENCOUNTER 2025-01-05 12:16 | Emergency (ER) | payer MEDICARE, OTHER, SELFPAY ==
[2025-01-05 12:17] VITALS: BP 145/76; PULSE 86; RESP 16; TEMP 36.9; O2SAT 94
--- NOTE | 2025-01-05 12:30 | EX.ED.GUMALE ---
HPI History of Present Illness Chief Complaint: Complaint Informant: patient and spouse/S.O. Pain Onset: Weeks Context: Gradual Onset Timing: Intermittent Current Severity: Mild Maximum Severity: Mild Narrative Narrative: 79-year-old male history of end-stage renal disease dialysis. Dialyzed Friday was dialyzed a full run this morning. History of anemia, CHF and Zach's. States that about a month ago he started small amount of blood in his urine. It was intermittent. He has had it over the last 3 days each day. Small clots. He is able to urinate. Said he is having a normal stream. Feels like he is emptying his bladder. He is on no blood thinners not even aspirin. He does see urologist Dr. Sarath Decker. Denies any history of bladder cancer. History of prior TURP procedure. Prior similar symptoms: No Recent Illness/Hospitalization: Yes [facility] Medical History Dialysis patient Wears hearing aid Wears dentures Wears glasses Arthritis Prostate disease Anemia History of renal disease Back pain Gastric reflux Neuropathy History of edema History of CHF (congestive heart failure) History of echocardiogram Normal stress echocardiogram Cardiology follow-up encounter Family history of malignant neoplasm of colon Rheumatoid arthritis GERD (gastroesophageal reflux disease) Former smoker Irregular heart beat Chronic systolic heart failure Hard of hearing Obstructive sleep apnea Zach's granulomatosis BPH (benign prostatic hyperplasia) Chronic kidney disease, stage 3 (moderate) Claudication Prediabetes Essential hypertension History of tobacco use Shortness of breath Chest pain Abnormal stress echo Home Medications ?Medication ?Instructions ?Recorded ?Last Taken ?Type handicap placard #1 ea 08/29/22 Unknown Rx handicap placard #1 ea 03/12/23 Unknown Rx triamcinolone acetonide 0.1 % 1 applic topical DAILY PRN 09/09/23 Unknown Rx topical ointment rash/itching #15 grams mirtazapine 15 mg tablet 15 mg PO QHS #90 tabs 06/08/24 Unknown Rx omeprazole 40 mg capsule,delayed 40 mg PO DAILY stomach #90 caps 07/26/24 Unknown Rx release metoprolol tartrate 25 mg tablet 25 mg PO DAILY BP #90 tabs 09/13/24 Unknown Rx melatonin 3 mg capsule 3 mg PO HS PRN sleep #30 caps 10/14/24 Unknown Rx magna life topical 10/15/24 Unknown History tamsulosin 0.4 mg capsule 0.8 mg (2 x 0.4 mg) PO QDAY #60 11/15/24 Unknown Rx caps gabapentin 100 mg capsule 300 mg PO QHS 12/07/24 Unknown History ropinirole 0.25 mg tablet 0.25 mg PO QHS #30 tabs 12/07/24 Unknown Rx ciprofloxacin HCl 500 mg tablet 500 mg PO BID 10 days #20 tabs 01/05/25 Unknown Rx (Cipro) Allergy/AdvReac Type Severity Reaction Status Date / Time finasteride Allergy Intermediate mastodynia Verified 01/05/25 12:19 aspirin AdvReac Severe cannot Verified 01/05/25 12:19 take d/t Zach's Vasculitis Family History Mother CAD (coronary artery disease) Congestive heart failure Father Prostate cancer Lung cancer Brother Colon cancer Sister Colon cancer Grandmother Diabetes Surgical History Hx of bilateral cataract extraction S/P TURP Cataract extraction status AV fistula History of left heart catheterization (11/12/18) History of endoscopy (01/02/16) History of prostate biopsy (01/11/14) S/P arthroscopic surgery of left knee (1989) H/O arthroscopy of left knee (1988) Status post biopsy of kidney (12/2013) History of total right hip arthroplasty (02/05/16) History of colonoscopy Social History household members: spouse housing: house 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 Intermittent gross hematuria. No dysuria. No fever. Able to urinate. Constitutional Constitutional ED: Denies chills or fever(s) Eyes Eyes: Denies blurry vision ENT ENT ED: Denies ear pain Cardiovascular Cardiovascular: Denies chest pain Respiratory/Chest Respiratory/Chest: Denies cough or dyspnea Gastrointestinal Gastrointestinal: Denies abdominal pain, diarrhea, nausea or vomiting Genitourinary Genitourinary ED: Reports hematuria; Denies dysuria or urinary frequency Musculoskeletal Musculoskeletal: Denies arthralgias Integumentary Denies abscess Neurologic Neurologic: Denies headache(s) Psychiatric Psychiatric: Denies anxiety Endocrine Endocrinology: Denies polydipsia, polyphagia or polyuria Hematologic/Lymphatic Hematologic/Lymphatic: Denies easy bleeding, easy bruising or lymphadenopathy Allergic/Immunologic Allergic/Immunologic ED: Denies mouth swelling, tongue swelling or urticaria EXAM Physical Exam Narrative Exam Narrative: Well-appearing 79-year-old male sitting upright in bed. present in room. Vital signs stable afebrile. No acute distress. He walked from triage into the room. H EENT exam pupils round reactive light. Moist mucous membranes. Neck nontender no JVD. Lungs clear to auscultation bilaterally. Heart regular rhythm rate about 85 no murmur. Chest wall and ribs nontender. Abdomen soft, nontender, nondistended, normal bowel sounds without peritoneal signs. No suprapubic tenderness. Moving all 4 extremities. Normal strength. Back nontender. Neurologically he is awake and alert. Answering questions following commands. Const Vital Signs: 01/05/25 12:17 Temperature 98.5 F Temperature Source Oral Pulse Rate 86 Respiratory Rate 16 Blood Pressure 145/76 H Blood Pressure Mean 99 Pulse Ox 94 Oxygen Delivery Method Room Air Positive well nourished and well developed; Negative for cachectic, contractures or unkempt General Appearance ED: well developed and NAD; Negative for unkempt, cachectic, contractures or pallor Nutritional Appearance: Negative for cachectic HEENT Reports moist mucous membranes normocephalic and atraumatic Eyes PERRL and EOMs intact bilaterally Neck no lymphadenopathy, supple and no JVD General: Negative for tenderness Resp normal respiratory effort and clear to auscultation bilaterally Cardio regular rate, regular rhythm, S1 normal heart sound, S2 normal heart sound and no murmurs GI non-tender, non-distended and no masses Inspection: Negative for abdominal distention Auscultation: normoactive bowel sounds Palpation: soft; Negative for tender or guarding no CVA tenderness Back/Spine no CVA tenderness Extremity normal to inspection Extremity Narrative: Dialysis shunt left upper arm good thrill. General Extremety ED: Negative for edema, pulses abnormal or tenderness General Extremity: Negative for edema or pulses abnormal Neuro oriented x3, CN's II-XII intact bilaterally, moves all extremities and no focal motor deficits Sensorium / Orientation: alert, oriented to person, oriented to place and oriented to time Motor Exam: strength 5/5 throughout Psych mental status grossly normal Appearance: Negative for unkempt Thought Process: normal thought process Thought Content: normal thought content Skin General Skin Exam: Negative for jaundice or pallor Lesions: no lesions Rashes: no rashes MDM MDM MDM Narrative Medical decision making narrative: 71-year-old male with history of dialysis still makes urine. Complaining of intermittent gross hematuria for months consistent the last 3 days. UA OB obtained to evaluate for possible UTI. He is on no blood thinners. CBC and chemistry be obtained. Will check a bladder scan but he states he is urinating fine and has a good stream. Repeat exam at 2:45 PM patient doing well. No further complaints. Again states he is urinating and able to urinate. Does not want a catheter at this time. He does not need one at this time. He will follow-up with his urologist Dr. Sarath Decker. He will be started on antibiotics Cipro 500 twice daily for 10 days first dose given here. History & Record Review Discussion w/independent historian: Patient and Family Additional record(s) reviewed:: Prior outpatient record, Prior ED visit and Prior labs Lab Data Attestation: I reviewed the patient's lab results. Lab results narrative: CBC shows a white count 3.6. H&H of 11.0 and 33. Platelets 136. Electrolytes show a gap at 10. BUN 9 creatinine 2.63 has got a history of Renal failure on dialysis. CBC is consistent with prior. Glucose 114. Urinalysis shows 150 occult blood. No nitrates. 500 leukocyte esterase. 25-50 red cells. Greater than 100 white cells. 1+ bacteria. Urine culture will be sent. Is to be treated as a UTI. Patient be started on oral antibiotics. Labs: Laboratory Results - last 24 hr 01/05/25 01/05/25 12:35 13:45 WBC 3.6 L RBC 3.53 L Hgb 11.0 L Hct 33.6 L MCV 95.2 H MCH 31.2 MCHC 32.7 RDW Std Deviation 49.5 H RDW Coeff of Misael 14.2 Plt Count 136 L MPV 9.2 Immature Gran % (Auto) 0.300 Neut % (Auto) 68.9 Lymph % (Auto) 17.2 L [place] % (Auto) 9.7 Eos % (Auto) 2.8 Baso % (Auto) 1.1 H Absolute Neuts (auto) 2.5 Absolute Lymphs (auto) 0.62 L Nucleated RBC % 0 Sodium 139 Potassium 3.8 Chloride 99 Carbon Dioxide 30.4 Anion Gap 10 BUN 9 Creatinine 2.63 H Est GFR (MDRD) Non-Af 24 L BUN/Creatinine Ratio 3.3 L Glucose 114 H Calcium 9.0 Urine Color Yellow Urine Clarity Cloudy Urine pH 8.0 Ur Specific [place] 1.010 Urine Protein 100 H Urine Glucose (UA) 50 H Urine Ketones Negative Urine Occult Blood 150 H Urine Nitrite Negative Urine Bilirubin Negative Urine Urobilinogen Normal Ur Leukocyte Esterase 500 H Urine RBC 25-50 SEEN Urine WBC >100 SEEN Ur Squamous Epith Cells 0-5 SEEN Urine Bacteria 1+ Urine Mucus 0 SEEN Discharge Plan Triage Chief Complaint: Complaint ED Provider: Vinay Gomez Dx/Rx/DC Orders Clinical Impression: Hematuria, Urinary tract infection, History of end stage renal disease Instructions: ED Hematuria, ED Urinary Tract Infections in Men Prescriptions: New ciprofloxacin HCl [Cipro] 500 mg tablet 500 mg PO BID 10 Days Qty: 20 0RF No Action (DME) handicap placard See Rx Instructions .ROUTE .MEDSUPPLY Qty: 1 0RF Rx Instructions: Length of time: 5 years Diagnosis: Impaired physical mobility z74.09 (DME) handicap placard See Rx Instructions .ROUTE .MEDSUPPLY Qty: 1 0RF Rx Instructions: Length of time: 5 years Diagnosis: Impaired physical mobility z74.09 triamcinolone acetonide 0.1 % ointment 1 applic topical DAILY PRN (Reason: rash/itching) Qty: 15 0RF mirtazapine 15 mg tablet 15 mg PO QHS Qty: 90 1RF gabapentin 100 mg capsule 300 mg PO QHS ropinirole 0.25 mg tablet 0.25 mg PO QHS Qty: 30 0RF magna life topical Rx Instructions: magna life cream topically to bilateral feet every evening omeprazole 40 mg capsule,delayed release(DR/EC) 40 mg PO DAILY Qty: 90 1RF metoprolol tartrate 25 mg tablet 25 mg PO DAILY Qty: 90 1RF melatonin 3 mg capsule 3 mg PO HS PRN (Reason: sleep) Qty: 30 0RF tamsulosin 0.4 mg capsule 0.8 mg PO QDAY Qty: 60 1RF Primary Care Provider: Alycia Jennings Referrals: Catalina Noguera MD [Med Staff - Active Staff] - Kael Decker MD [Med Staff - Active Staff] - As soon as possible Activity Restrictions/Additional Instructions: You have a urinary tract infection. A urine culture will be sent. Will start you on antibiotics Cipro 1 pill twice a day for 10 days. Call and follow-up with your urologist as soon as possible. If the blood does not clear up sometimes will consider doing a cystoscopy whether go on your bladder and look with the scope. Plenty of fluids to prevent clotting. Urinate frequently. If the bleeding gets a lot worse or you are unable to urinate return we may have to place a Villanueva catheter. We do not have to at this time. Print Language: Slovenian Disposition Disposition: Home, Self Care
[2025-01-05 12:45] LABS: Hematocrit 33.6 % (40-54); Hemoglobin 11.0 g/dL (13.0-16.5); Immature Granulocytes Count 0.010 X10^3/uL (0.0-0.0); Mean Corp Hgb Conc 32.7 g/dL (32-36); Mean Corpuscular Volume 95.2 fL (80-94); Mean Platelet Vol. 9.2 fl (6.2-12.0); NRBC Flagged by Analyzer 0 % (0-5); Platelet Count 136 K/mm3 (150-450); RBC Distribution Width CV 14.2 % (11.6-14.6); RBC Distribution Width SD 49.5 fl (35.1-43.9); Red Blood Count 3.53 M/mm3 (4.6-6.2); White Blood Count 3.6 K/mm3 (4.4-11.0)
[2025-01-05 13:15] LABS: Anion Gap 10 (5-15); BUN 9 mg/dL (4-19); BUN/Creat Ratio 3.3 RATIO (10-20); Calcium,Total 9.0 mg/dL (7.6-11.0); Carbon Dioxide 30.4 mmol/L (21.0-32.0); Chloride 99 mmol/L (98-108); Glucose 114 mg/dL (70-99); Potassium 3.8 mmol/L (3.3-5.1)
[2025-01-05 13:53] LABS: Mucous, Urine 0 SEEN /hpf (<or=2+)
[2025-01-05 13:55] LABS: Color, Urine Yellow (Yellow); Glucose, Dipstick 50 mg/dl (Normal); Ketone-Dipstick Negative (Negative); Leukocyte Esterase-Dipstick 500 /ul (Negative); Nitrite-Dipstick Negative (Negative); Occult Blood-Urine 150 /ul (Negative); Protein-Dipstick 100 mg/dl (Negative); Specific Gravity, Urine 1.010 (1.002-1.030); Urine Bilirubin Dipstick Negative (Negative)
[2025-01-05] MEDS: HYDROcodone Bitartrate/Apap 5/325 Tablet PO (13:57)
[2025-01-05 14:16] VITALS: BP 120/77; PULSE 73
[2025-01-05 14:24] LABS: Red Blood Cells-Urine 25-50 SEEN /hpf (0-5)
[2025-01-05 14:25] LABS: Squamous Epithelial Cells - UA 0-5 SEEN /hpf (0-5)
[2025-01-05 15:28] VITALS: BP 120/77; PULSE 73; RESP 16; TEMP 36.9; O2SAT 94
== END 2025-01-05 15:28 | disposition home or self-care (01) ==
PROVIDERS: Emergency Provider Emergency Medicine; PCP Pediatrics; Visit Provider Emergency Medicine
DX: R31.9 Hematuria, unspecified (principal); I13.2 Hypertensive heart and chronic kidney disease with heart failure and with stage 5 chronic kidney disease, or end stage renal disease; N18.6 End stage renal disease; I50.22 Chronic systolic (congestive) heart failure; N39.0 Urinary tract infection, site not specified; Z87.891 Personal history of nicotine dependence
CPT/HCPCS: 80048; 81001; 85025; 87077; 87086; 87088; 87186; 99283

== ENCOUNTER → 2025-02-01 | Outpatient (CLI) | payer MEDICARE, OTHER, SELFPAY ==
--- NOTE | 2025-02-01 15:50 | CT_ITS ---
PROCEDURE: ABDOMEN/PELVIS W IV CONT ONLY 02/01/2025 REASON FOR EXAM: GROSS HEMATURIA TECHNIQUE: Procedure Code: [id number] Modality: CT Procedure: ABDOMEN/PELVIS W IV CONT ONLY Coronal and Sagittal reconstruction series were provided. CONTRAST: Isovue-300 VOLUME: 95 mL One or more dose reduction techniques were used (e.g., Automated exposure control, adjustment of the mA and/or kV according to patient size, use of iterative reconstruction technique. RADIATION DOSE SUMMARY: DLP: 1660.5 mGycm COMPARISON: Previous CT of the abdomen and pelvis of 02/25/2023 FINDINGS: Lung bases: Mild dependent atelectasis Liver: Normal size. No mass. Gallbladder: Decompressed. Spleen: Calcified granulomata. No mass or splenomegaly. Pancreas: Diffuse pancreatic atrophy. Multi cystic lesions in the pancreas including a 2.6 cm lesion in the head of the pancreas, a 2.1 cm cystic lesion in the uncinate process and a 1.3 cm lesion in the body. The lesion of the pancreatic head appears increased since previous exam. Adrenals: Normal Kidneys: Atrophic kidneys. 3.8 cm left renal cysts. No hydronephrosis. No nephrolithiasis. Bladder: Diffuse thickening of the bladder wall. Reproductive Organs: Enlarged prostate gland measuring 5.5 x 6.2 cm. Bowel: Diverticulosis without active diverticulitis. No bowel obstruction. Appendix: The appendix is not identified. There is no inflammatory process identified in the right lower quadrant to suggest appendicitis. Lymph nodes: No pelvic or retroperitoneal lymphadenopathy. Vasculature: Atherosclerosis of the aorta without aneurysm Peritoneum / Retroperitoneum: No ascites. No peritoneal implant. Bones: Compression fracture deformity of L1. This appears chronic. No destructive bone lesion. CT/Abdomen/Pelvis W IV Cont ONLY IMPRESSION: Circumferential thickening of the bladder wall which is underdistended with mil d inflammatory changes. Underlying cystitis can not be excluded. Markedly enlarged prostate gland. No hydronephrosis or nephrolithiasis. Simple left renal cysts. Severe atrophy of the pancreas with prominent cystic lesion in the head of the pancreas measuring 2 cm. This could reflect a side branch duct intraductal papillary mucinous neoplasm. Additional cystic st ructures are scattered through the pancreatic body. No ductal dilatation. Correlation with MRCP with and without contrast i s recommended. Reading Location: [facility]
== END | disposition home or self-care (01) ==
LOC: CT 15:34
PROVIDERS: PCP Internal Medicine; Referring Provider Urology; Visit Provider Urology
DX: R31.0 Gross hematuria (principal)
CPT/HCPCS: 74177; Q9967

== ENCOUNTER 2025-02-23 11:07 | Day surgery (SDC) | payer MEDICARE, OTHER, SELFPAY ==
--- NOTE | 2025-02-21 12:16 | PAT.ANESEVAL ---
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 When Was Last Pacemaker Check QUESTION #4 FULL TEXT: You/Your Family Experience fever (hyperthermia) with Anesthesia Last Oral Intake Last Oral intake: Last Oral Intake NPO since Meds taken in AM with sips of water? Meds patient instructed to take am of surgery PONV PONV - [employer] assistant manager: PONV - [employer] assistant manager Female No 02/18/25 16:26 HX of Motion Sickness No 02/18/25 16:26 HX of N/V After Surgery No 02/18/25 16:26 Non-Smoker Yes 02/18/25 16:26 Duration of Surgery greater Yes 02/18/25 16:26 than 60 minutes Number of Risk Factors 2 02/18/25 16:26 PONV Score Moderate Risk 02/18/25 16:26 Height & Weight Height & Weight: Anesthesia: Height & Weight Height 5 ft 8 in 01/05/25 12:17 Respiratory Assessment Respiratory Assessment - [employer] assistant manager: Respiratory Tract Infection Hx - [employer] assistant manager Hx Respiratory Tract Infection No 02/18/25 16:26 STOP Sleep Apnea STOP Sleep Apnea - [employer] assistant manager: STOP Sleep Apnea - [employer] assistant manager Hx Hypertension Yes 02/18/25 16:26 Hx Sleep Apnea No 02/18/25 16:26 CPAP No 02/18/25 16:26 BIPAP No 02/18/25 16:26 Do you snore loudly (louder No 02/18/25 16:26 than talking or can be heard Do you often feel tired/ No 02/18/25 16:26 fatigued/ sleepy during daytime? Has anyone observed you stop No 02/18/25 16:26 breathing during sleep? STOP Results Negative 02/18/25 16:26 QUESTION #5 FULL TEXT : Do you snore loudly (louder than talking or can be heard through closed doors)? 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 Specify any problems Hx of Preganancy in last 3 N/A 02/18/25 16:26 Months Nurse Filling Out Transfusion ZAC 02/18/25 16:26 & Questions: Date: 02/18/25 02/18/25 16:26 Time: 16:31 02/18/25 16:26 Patient unable to answer at this time (ie. confused, unrespo /Reproduction History /Reproductive History - [employer] assistant manager: /Reproductive Hx- [employer] assistant manager Hx Now Gestational Age (in weeks): EDC: Hx Hx Para Hx Section SAB COUNTS INCLUDE 234 BEDS AT THE [facility] Medical History (Updated 02/18/25 @ 16:41 by Salima Corral) Uses wheelchair Walker as ambulation aid Ambulates with cane Shortness of breath on exertion Dialysis patient Wears hearing aid Wears dentures Arthritis Prostate disease Anemia History of renal disease Back pain Gastric reflux Neuropathy History of edema History of CHF (congestive heart failure) History of echocardiogram Normal stress echocardiogram Cardiology follow-up encounter Family history of malignant neoplasm of colon Rheumatoid arthritis GERD (gastroesophageal reflux disease) Former smoker Irregular heart beat Chronic systolic heart failure Hard of hearing Obstructive sleep apnea Zach's granulomatosis BPH (benign prostatic hyperplasia) Chronic kidney disease, stage 3 (moderate) Claudication Prediabetes Essential hypertension History of tobacco use Shortness of breath Chest pain Abnormal stress echo Home Medications ?Medication ?Instructions ?Recorded ?Last Taken ?Type handicap placard #1 ea 04/13/23 Unknown Rx handicap placard #1 ea 03/12/23 Unknown Rx triamcinolone acetonide 0.1 % 1 applic topical DAILY PRN 09/09/23 Unknown Rx topical ointment rash/itching #15 grams mirtazapine 15 mg tablet 15 mg PO QHS #90 tabs 06/08/24 Unknown Rx omeprazole 40 mg capsule,delayed 40 mg PO DAILY stomach #90 caps 07/26/24 Unknown Rx release metoprolol tartrate 25 mg tablet 25 mg PO DAILY BP #90 tabs 09/13/24 Unknown Rx melatonin 3 mg capsule 3 mg PO HS PRN sleep #30 caps 10/14/24 Unknown Rx magna life 1 dose topical QHS PRN 10/15/24 Unknown History gabapentin 100 mg capsule 300 mg PO QHS 12/07/24 Unknown History ropinirole 0.25 mg tablet 0.25 mg PO QHS #30 tabs 01/11/25 Unknown Rx tamsulosin 0.4 mg capsule 0.8 mg (2 x 0.4 mg) PO QDAY #60 01/20/25 Unknown Rx caps Allergy/AdvReac Type Severity Reaction Status Date / Time finasteride Allergy Intermediate mastodynia Verified 02/18/25 16:21 aspirin AdvReac Severe cannot Verified 02/18/25 16:21 take d/t Zach's Vasculitis Family History Mother CAD (coronary artery disease) Congestive heart failure Father Prostate cancer Lung cancer Brother Colon cancer Sister Colon cancer Grandmother Diabetes Surgical History Hx of bilateral cataract extraction S/P TURP Cataract extraction status AV fistula History of left heart catheterization (11/12/18) History of endoscopy (01/02/16) History of prostate biopsy (01/11/14) S/P arthroscopic surgery of left knee (1989) H/O arthroscopy of left knee (1988) Status post biopsy of kidney (12/2013) History of total right hip arthroplasty (02/05/16) History of colonoscopy Social History household members: spouse housing: house 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 Sinus rhythm with occasional PVC. Stress test pertinent findings: 10/09/2018. EF is 65%. Positive for ischemia by echo cardiogenic criteria. Patient appeared to develop mid anteroseptal hypokinesis at peak exercise. (See cath below) Echo (EF%) pertinent findings: 11/10/2018. EF of 60%. RVSP of 19 mmHg. No aortic stenosis. Heart catheterization pertinent findings: 11/12/2018. Normal coronary arteries. EF of 60%. Additional pertinent findings: Patient has an elevated creatinine of 2.63. However this is actually better than any creatinine in her last 5 years. Recommendation Anesthesia Recommendation Anesthesia recommendation: OPTIMIZED for anesthesia
[2025-02-23] VITALS (7 sets, daily range): BP systolic 98–128; BP diastolic 59–82; PULSE 76–80; RESP 14–18; TEMP 36.2–36.7; O2SAT 96–99; BMI 32.8
--- NOTE | 2025-02-23 11:31 | PCM.PRE.AN2 ---
ASA Classification* ASA Classification ASA Classification: 3 Assessment & Plan Anesthesia* Anesthesia Assessment Anesthesia Assessment: Discussed sedation and/or anesthesia options, risks, benefits, and alternatives with patient/parents/legal guardian/POA. Questions invited. The patient/parents/legal guardian/POA seems to understand and agrees to proceed with anesthesia plan. Reviewed the physical assessment, medical history, allergy history and patient home medications list prior to surgery/procedure/anesthetic and documented any changes. Performed airway and anesthesia risk assessments. Anesthesia Type Anesthesia Type: General History Source History Obtained from:: Patient and Chart Anesthesia Focused Assessment* Oxygen Delivery Method: Room Air Airway Assessment Mouth opens: >3 cm Mallampati Score: II Teeth Condition: Dentures Neck Range of motion (ROM): Limited ROM Labs Anesthesia Preop lab: CBC WBC, (4.4-11.0) 3.6 K/mm3 L 01/05/25, 12:35 RBC, (4.6-6.2) 3.53 M/mm3 L 01/05/25, 12:35 Hgb, (13.0-16.5) 11.0 g/dL L 01/05/25, 12:35 Hct, (40-54) 33.6 % L 01/05/25, 12:35 Plt Count, (150-450) 136 K/mm3 L 01/05/25, 12:35 CHEMISTRY Potassium, (3.3-5.1) 3.8 mmol/L 01/05/25, 12:35 Sodium, (133-145) 139 mmol/L 01/05/25, 12:35 Magnesium, (1.5-2.2) 2.0 mg/dL 12/08/24, 01:22 Phosphorus, (2.7-4.5) 2.8 mg/dL 12/08/24, 01:22 BUN, (4-19) 9 mg/dL 01/05/25, 12:35 Creatinine, (0.70-1.20) 2.63 mg/dL H 01/05/25, 12:35 Glucose, (70-99) 114 mg/dL H 01/05/25, 12:35 TSH, (0.358-3.74) 1.14 uIU/mL 01/19/22, 06:50 COAG PT, (11.7-14.9) 13.8 SECONDS 04/19/24, 15:50 Pre-Assessment Diagnosis/Proposed Procedure Planned Operative Procedure(s): Circumcision Anesthesia History Anesthesia History - retail product demo specialist: Anesthesia History - retail product demo specialist Hx Hospitalization Yes: 11/2024 STROKE-LIKE 02/18/25 16:26 SYMPTOMS; R/T MEDS Any Problems With Anesthesia No 02/18/25 16:26 Cholinesterase deficiency No 02/18/25 16:26 You/Your Family Experience No 02/18/25 16:26 fever (hyperthermia) with Relationship Recent Exposure to Contagious No 06/25/22 08:32 Disease Does patient have nerve No 02/18/25 16:26 stimulator Patient instructed to have device shut off --Does patient have Pacemaker or ICD? When Was Last Pacemaker Check QUESTION #4 FULL TEXT: You/Your Family Experience fever (hyperthermia) with Anesthesia Last Oral Intake Last Oral intake: Last Oral Intake NPO since Meds taken in AM with sips of water? Meds patient instructed to take am of surgery PONV PONV - retail product demo specialist: PONV - retail product demo specialist Female No 02/18/25 16:26 HX of Motion Sickness No 02/18/25 16:26 HX of N/V After Surgery No 02/18/25 16:26 Non-Smoker Yes 02/18/25 16:26 Duration of Surgery greater Yes 02/18/25 16:26 than 60 minutes Number of Risk Factors 2 02/18/25 16:26 PONV Score Moderate Risk 02/18/25 16:26 Height & Weight Height & Weight: Anesthesia: Height & Weight Height 5 ft 8 in 01/05/25 12:17 Respiratory Assessment Respiratory Assessment - retail product demo specialist: Respiratory Tract Infection Hx - retail product demo specialist Hx Respiratory Tract Infection No 02/18/25 16:26 STOP Sleep Apnea STOP Sleep Apnea - retail product demo specialist: STOP Sleep Apnea - retail product demo specialist Hx Hypertension Yes 02/18/25 16:26 Hx Sleep Apnea No 02/18/25 16:26 CPAP No 02/18/25 16:26 BIPAP No 02/18/25 16:26 Do you snore loudly (louder No 02/18/25 16:26 than talking or can be heard Do you often feel tired/ No 02/18/25 16:26 fatigued/ sleepy during daytime? Has anyone observed you stop No 02/18/25 16:26 breathing during sleep? STOP Results Negative 02/18/25 16:26 QUESTION #5 FULL TEXT : Do you snore loudly (louder than talking or can be heard through closed doors)? 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 Specify any problems Hx of Preganancy in last 3 N/A 02/18/25 16:26 Months Nurse Filling Out Transfusion MGRIFFITH 02/18/25 16:26 & Questions: Date: 02/18/25 02/18/25 16:26 Time: 16:31 02/18/25 16:26 Patient unable to answer at this time (ie. confused, unrespo /Reproduction History /Reproductive History - retail product demo specialist: /Reproductive Hx- retail product demo specialist Hx Now Gestational Age (in weeks): EDC: Hx Hx Para Hx Section SAB Active Medications Active Medications: Current Medications Generic Name Dose Route Start Last Admin Trade Name Freq PRN Reason Stop Dose Admin Cefazolin Sodium 2 gm/ Sodium 110 mls @ 200 mls/hr 02/23/25 12:20 Chloride IV 02/23/25 12:52 INTRAOP ONE Lactated Ringer's 1,000 mls @ 15 mls/hr 02/23/25 11:15 IV .Q48H JUANY PFSH Medical History Uses wheelchair Walker as ambulation aid Ambulates with cane Shortness of breath on exertion Dialysis patient Wears hearing aid Wears dentures Arthritis Prostate disease Anemia History of renal disease Back pain Gastric reflux Neuropathy History of edema History of CHF (congestive heart failure) History of echocardiogram Normal stress echocardiogram Cardiology follow-up encounter Family history of malignant neoplasm of colon Rheumatoid arthritis GERD (gastroesophageal reflux disease) Former smoker Irregular heart beat Chronic systolic heart failure Hard of hearing Obstructive sleep apnea Zach's granulomatosis BPH (benign prostatic hyperplasia) Chronic kidney disease, stage 3 (moderate) Claudication Prediabetes Essential hypertension History of tobacco use Shortness of breath Chest pain Abnormal stress echo Home Medications ?Medication ?Instructions ?Recorded ?Last Taken ?Type handicap placard #1 ea 08/29/22 Unknown Rx handicap placard #1 ea 03/12/23 Unknown Rx triamcinolone acetonide 0.1 % 1 applic topical DAILY PRN 09/09/23 Unknown Rx topical ointment rash/itching #15 grams mirtazapine 15 mg tablet 15 mg PO QHS #90 tabs 06/08/24 Unknown Rx omeprazole 40 mg capsule,delayed 40 mg PO DAILY stomach #90 caps 07/26/24 Unknown Rx release metoprolol tartrate 25 mg tablet 25 mg PO DAILY BP #90 tabs 09/13/24 Unknown Rx melatonin 3 mg capsule 3 mg PO HS PRN sleep #30 caps 10/14/24 Unknown Rx magna life 1 dose topical QHS PRN 10/15/24 Unknown History gabapentin 100 mg capsule 300 mg PO QHS 12/07/24 Unknown History ropinirole 0.25 mg tablet 0.25 mg PO QHS #30 tabs 01/11/25 Unknown Rx tamsulosin 0.4 mg capsule 0.8 mg (2 x 0.4 mg) PO QDAY #60 01/20/25 Unknown Rx caps Allergy/AdvReac Type Severity Reaction Status Date / Time finasteride Allergy Intermediate mastodynia Verified 02/23/25 11:30 aspirin AdvReac Severe cannot Verified 02/23/25 11:30 take d/t Zach's Vasculitis Family History Mother CAD (coronary artery disease) Congestive heart failure Father Prostate cancer Lung cancer Brother Colon cancer Sister Colon cancer Grandmother Diabetes Surgical History Hx of bilateral cataract extraction S/P TURP Cataract extraction status AV fistula History of left heart catheterization (11/12/18) History of endoscopy (01/02/16) History of prostate biopsy (01/11/14) S/P arthroscopic surgery of left knee (1989) H/O arthroscopy of left knee (1988) Status post biopsy of kidney (12/2013) History of total right hip arthroplasty (02/05/16) History of colonoscopy Social History household members: spouse housing: house 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
[2025-02-23] MEDS: 0.9% Normal Saline (500mL Bag) 500 ML 15 ML IV (11:44)
[2025-02-23] MEDS: 0.9% Normal Saline (1000mL) 300 ML IV (12:37)
--- NOTE | 2025-02-23 12:45 | PCM.DC ---
Discharge Instructions DC O2, CPAP, BIPAP needs Home O2 Discharge instructions: No Dressing / Incision Discharge Activity: Return to Normal Activity and May Not Drive (while taking narcotic pain medications.) Dressing / Incision Call your doctor if you observe: Fever of 101 or Higher Follow Up Care Please Follow Up With: Kael Decker MD When: Call [phone] for an appointment Test Results: Test results from this visit will be discussed in further detail at your follow-up appointment, if applicable. Discharge Plan Admission Primary Reason for Your Visit: circumcision Attending Provider: Kael Decker Primary Care Provider: Alycia Jennings Instructions Print Language: Guatemalan Discharge Orders/Prescriptions Prescriptions: New cephalexin 500 mg capsule 500 mg PO TID Qty: 12 0RF Neosporin (wka-fia-wecys) 3.5mg-400 unit- 5,000 unit/gram ointment 1 applic topical TID Qty: 28.3 0RF Rx Instructions: apply to circumcision oxycodone 5 mg tablet 5 mg PO Q6H PRN (Reason: pain) 7 Days Qty: 10 0RF Continued (DME) handicap placard See Rx Instructions .ROUTE .MEDSUPPLY Qty: 1 0RF Rx Instructions: Length of time: 5 years Diagnosis: Impaired physical mobility z74.09 (DME) handicap placard See Rx Instructions .ROUTE .MEDSUPPLY Qty: 1 0RF Rx Instructions: Length of time: 5 years Diagnosis: Impaired physical mobility z74.09 triamcinolone acetonide 0.1 % ointment 1 applic topical DAILY PRN (Reason: rash/itching) Qty: 15 0RF mirtazapine 15 mg tablet 15 mg PO QHS Qty: 90 1RF gabapentin 100 mg capsule 300 mg PO QHS magna life 1 dose topical QHS PRN Rx Instructions: magna life cream topically to bilateral feet every evening oxycodone-acetaminophen 5-325 mg tablet 1 tab PO Q6H PRN PRN (Reason: severe pain) omeprazole 40 mg capsule,delayed release(DR/EC) 40 mg PO DAILY Qty: 90 1RF metoprolol tartrate 25 mg tablet 25 mg PO DAILY Qty: 90 1RF melatonin 3 mg capsule 3 mg PO HS PRN (Reason: sleep) Qty: 30 0RF ropinirole 0.25 mg tablet 0.25 mg PO QHS Qty: 30 2RF tamsulosin 0.4 mg capsule 0.8 mg PO QDAY Qty: 60 1RF Referrals / Follow Up: Kael Decker MD [Med Staff - Active Staff, Urology] Alycia Jennings MD [Primary Care Provider, Family Practice] Disposition Disposition (needs filled in before D/C Order can be placed): Home, Self Care
--- NOTE | 2025-02-23 12:45 | PCM.OPRPT ---
Operative Report (Standard) Operative Information Date of Procedure: 02/23/25 Pre-Operative Diagnosis: Phimosis Post-Operative Diagnosis: The same Surgery/Procedure Performed: Circumcision continuous drier helper: No Type of Anesthesia: General RN Documented Start/Stop Times: Operation Date: 02/23/25 12:35 Case Time Into Pre-Op 02/23/25 11:10 Procedure Start Time: 12:20 Procedure Stop Time: 13:15 Select all DRAINS/GRAFTS/IMPLANTS that apply: None Estimated Blood Loss: 10 cc Specimen collected: No Description of surgery: Indications 79-year-old male with significant phimosis of the foreskin unable to retract it or clean the head of the penis explained to the patient that it may be difficult to clean the penis risk for cancer etc. also risk that if he ever needs a catheter is coming a possible put in so he agreed to proceed with a circumcision. Patient was taken back to the operating room after smooth duction of anesthesia the table penis and testicles were prepped and draped in shaven usual sterile fashion made a circumferential incision around the circumcision line use electrocautery to dissect the foreskin off the penis I then used interrupted 3-0 chromic sutures to do interrupted sutures all the way around to reattach the shaft skin to the subcoronal skin had to put extra stitches in 1 side there was bleeding but then this stopped dressings and pressure dressing was placed on the penis patient anesthetic was reversed plan to see him back in a few weeks for checkup Surgical Findings: Circumcision completed Complications Complications: No Admit VTE Documentation VTE Present on Admission: No VTE Mechan Device Prophylaxis: SCD's VTE Pharm Prophylaxis ordered?: No
[2025-02-23] MEDS: Lidocaine 1% (5 ml sdv) 5 ML Vial IV (12:46)
[2025-02-23] MEDS: fentaNYL 100 MCG/2 ML Ampul 50 MCG IV (12:46)
[2025-02-23] MEDS: Cefazolin 1 GM/5 ML Vial 2 GM IV (12:47)
--- NOTE | 2025-02-23 13:27 | PCM.POST.ANE ---
Anesthesia: Postop Eval I Current Vital Signs Temperature: 98.1 F Pulse Rate: 80 Blood Pressure: 127/72 Respiratory Rate: 16 Pulse Ox: 98 Assessment Airway patent: Yes Spontaneous unlabored respirations: Yes nausea: No Vomiting: No Anesthesia Complication: No Fluid Hydration Crystalloid volume administer (ml): 300 Total IV fluid infused: 300 Progress Note Anesthesia document: Postop Eval 1 completed: Yes
--- NOTE | 2025-02-23 15:14 | POSTOPAN2_ITS ---
Anesthesia Postop Eval I Sum Postop Eval Completion status Anesthesia document: Postop Eval 1 completed: Yes Anesthesia Postop Eval I Summary Anesthesia Postop Eval I Summary: Anesthesia Postop Eval I: Assessment Summary Airway patent Yes 02/23/25 13:27 BIOLOGICAL SCIENCES [email or web address].[email or web address] Spontaneous unlabored Yes 02/23/25 13:27 BIOLOGICAL SCIENCES PROFESSOR.SHOF respirations Mental status nausea No 02/23/25 13:27 BIOLOGICAL SCIENCES PROFESSOR.SHOF Vomiting No 02/23/25 13:27 BIOLOGICAL SCIENCES PROFESSOR.SHOF Anesthesia Postop Eval I: Fluid Summary Crystalloid volume administer 300 02/23/25 13:27 BIOLOGICAL SCIENCES PROFESSOR.SHOF (ml) Colloids volume administered ( ml) Blood Product volume administered (ml) Total IV fluid infused 300 02/23/25 13:27 BIOLOGICAL SCIENCES PROFESSOR.SHOF Anesthesia Postop Eval I: Summary Notes Anesthesia Complication No 02/23/25 13:27 BIOLOGICAL SCIENCES PROFESSOR.SHOF Anesthesia Complication Comment: Post-operative progress note Anesthesia: Postop Eval II Evaluation Mental status: Awake and Calm Pain Level: 1 nausea: No Vomiting: No Complications Anesthesia Complication: No
--- NOTE | 2025-02-23 15:14 | PCM.POSTANE2 ---
Anesthesia Postop Eval I Sum Postop Eval Completion status Anesthesia document: Postop Eval 1 completed: Yes Anesthesia Postop Eval I Summary Anesthesia Postop Eval I Summary: Anesthesia Postop Eval I: Assessment Summary Airway patent Yes 02/23/25 13:27 [employer]SHOF Spontaneous unlabored Yes 02/23/25 13:27 [employer].SHOF respirations Mental status nausea No 02/23/25 13:27 [employer] FARM MA[employer]GER.SHOF Vomiting No 02/23/25 13:27 [employer]ARM MA[employer]GER.SHOF Anesthesia Postop Eval I: Fluid Summary Crystalloid volume administer 300 02/23/25 13:27 PIG FARM MANAGER.SHOF (ml) Colloids volume administered ( ml) Blood Product volume administered (ml) Total IV fluid infused 300 02/23/25 13:27 P[employer] FARM MANAGER.SHOF Anesthesia Postop Eval I: Summary Notes Anesthesia Complication No 02/23/25 13:27 P[employer] FARM MANAGER.SHOF Anesthesia Complication Comment: Post-operative progress note Anesthesia: Postop Eval II Evaluation Mental status: Awake and Calm Pain Level: 1 nausea: No Vomiting: No Complications Anesthesia Complication: No
== END 2025-02-23 14:44 | disposition home or self-care (01) ==
LOC: SDC 11:08 → AC 11:09
PROVIDERS: PCP Pediatrics; Referring Provider Urology; Visit Provider Urology
PROC: (CPT 54161; principal; 2025-02-23 12:25)
DX: N47.1 Phimosis (principal); I50.22 Chronic systolic (congestive) heart failure; I11.0 Hypertensive heart disease with heart failure; Z79.899 Other long term (current) drug therapy; N40.1 Benign prostatic hyperplasia with lower urinary tract symptoms; R31.0 Gross hematuria; Z87.891 Personal history of nicotine dependence; K21.9 Gastro-esophageal reflux disease without esophagitis
CPT/HCPCS: 54161; 00920; J2405

== ENCOUNTER → 2025-03-14 | Outpatient (CLI) | payer MEDICARE, OTHER, SELFPAY ==
--- NOTE | 2025-03-14 12:46 | AVDS_ITS ---
Reason For Study Reason For Study: Lt AVF Evaluation LEFT Inflow - 179.7/95.7 cm/s Inflow - 3835 ml/min Anastomosis - 668.8/406.4 cm/s Anastomosis - 3994 ml/min Prox AVF - 242.3/127.9 cm/s Prox AVF - 19236 ml/min Mid AVF - 276.9/119.6 cm/s Mid AVF - 93040 ml/min Dist AVF - 209.4/106.1 cm/s Dist AVF - 22544 ml/min Outflow - 100.1/58.4 cm/s Outflow - 2098 ml/min. VL/AV Fistula/Dialysis Graft Scan Interpretation Summary Left upper extremity fistula with adequate flow volume, no evidence of stenosis . Aneurysmal throughout. Ordering Physician: Kerri Mccormack Referring Physician: Alycia Jennings Performed By: Cholo Fishman RVT and Student
== END | disposition home or self-care (01) ==
LOC: CVS 12:41
PROVIDERS: PCP Pediatrics; Referring Provider Physician Assistant; Visit Provider Physician Assistant
DX: N18.6 End stage renal disease (principal); Z99.2 Dependence on renal dialysis
CPT/HCPCS: 93990

== ENCOUNTER 2025-04-20 19:36 | Emergency (ER) | payer MEDICARE, OTHER, SELFPAY ==
[2025-04-20] VITALS (8 sets, daily range): BP systolic 110–166; BP diastolic 74–96; PULSE 80–90; RESP 18–22; TEMP 36.2–36.7; O2SAT 97–99; BMI 35.4
--- NOTE | 2025-04-20 19:56 | ED.VIS.DYS ---
HPI History of Present Illness Chief Complaint: Shortness of Breath Informant: patient Onset/Context/Timing Onset: Weeks Context: gradual Timing: Continuous Quality: Positive for Orthopnea Worsened by: Lying flat Relieved by: Nothing Associated Symptoms cough; Negative for rhinorrhea, post nasal drip, ear pain, fever, sore throat, chills, clear sputum, white sputum, yellow sputum or green sputum Chest Pain: Positive for None Narrative Narrative: Patient presents with shortness of breath that has been getting worse over the past few weeks. Patient states that is gradually getting worse. Patient states he has a history of chronic kidney disease and is on dialysis. Patient states he went to dialysis today and had a full run of dialysis. Patient states he still feels like he is filling up with fluid. Patient states his breathing is worse when he lays flat. Patient states nothing seems to help with it. Patient admits to a mild cough but denies any sputum production. Patient denies any fevers or chills. Patient denies any chest pain. [facility] Medical History Uses wheelchair Walker as ambulation aid Ambulates with cane Shortness of breath on exertion Dialysis patient Wears hearing aid Wears dentures Arthritis Prostate disease Anemia History of renal disease Back pain Gastric reflux Neuropathy History of edema History of CHF (congestive heart failure) History of echocardiogram Normal stress echocardiogram Cardiology follow-up encounter Family history of malignant neoplasm of colon Rheumatoid arthritis GERD (gastroesophageal reflux disease) Former smoker Irregular heart beat Chronic systolic heart failure Hard of hearing Obstructive sleep apnea Zach's granulomatosis BPH (benign prostatic hyperplasia) Chronic kidney disease, stage 3 (moderate) Claudication Prediabetes Essential hypertension History of tobacco use Shortness of breath Chest pain Abnormal stress echo Home Medications ?Medication ?Instructions ?Recorded ?Last Taken ?Type handicap placard #1 ea 08/29/22 Unknown Rx handicap placard #1 ea 03/12/23 Unknown Rx triamcinolone acetonide 0.1 % 1 applic topical DAILY PRN 09/09/23 Unknown Rx topical ointment rash/itching #15 grams mirtazapine 15 mg tablet 15 mg PO QHS #90 tabs 06/08/24 Unknown Rx omeprazole 40 mg capsule,delayed 40 mg PO DAILY stomach #90 caps 07/26/24 02/23/25 Rx release melatonin 3 mg capsule 3 mg PO HS PRN sleep #30 caps 10/14/24 02/22/25 Rx magna life 1 dose topical QHS PRN 10/15/24 02/22/25 History gabapentin 100 mg capsule 300 mg PO QHS 12/07/24 02/22/25 History ropinirole 0.25 mg tablet 0.25 mg PO QHS #30 tabs 01/11/25 02/22/25 Rx tamsulosin 0.4 mg capsule 0.8 mg (2 x 0.4 mg) PO QDAY #60 01/20/25 02/22/25 Rx caps cephalexin 500 mg capsule 500 mg PO TID #12 caps 02/23/25 Unknown Rx neomycin-bacitracn Zn-polymyx 3.5 1 applic topical TID #28.3 grams 02/23/25 Unknown Rx mg-400 unit-5,000 unit/gram top oint (Neosporin ([id number])) oxycodone 5 mg tablet 5 mg PO Q6H PRN pain 7 days #10 02/23/25 Unknown Rx tabs oxycodone-acetaminophen 5 mg-325 1 tab PO Q6H PRN PRN severe pain 02/23/25 02/23/25 History mg tablet metoprolol tartrate 25 mg tablet 25 mg PO DAILY BP #90 tabs 03/21/25 Unknown Rx Allergy/AdvReac Type Severity Reaction Status Date / Time finasteride Allergy Intermediate mastodynia Verified 04/20/25 19:42 aspirin AdvReac Severe cannot Verified 04/20/25 19:42 take d/t Zach's Vasculitis Family History Mother CAD (coronary artery disease) Congestive heart failure Father Prostate cancer Lung cancer Brother Colon cancer Sister Colon cancer Grandmother Diabetes Surgical History Hx of bilateral cataract extraction S/P TURP Cataract extraction status AV fistula History of left heart catheterization (11/12/18) History of endoscopy (01/02/16) History of prostate biopsy (01/11/14) S/P arthroscopic surgery of left knee (1989) H/O arthroscopy of left knee (1988) Status post biopsy of kidney (12/2013) History of total right hip arthroplasty (02/05/16) History of colonoscopy Social History household members: spouse housing: house 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 Smoking Status: Former smoker quit date: 07/26/81 pack-years: 19 Electronic Cigarette Use: not used alcohol intake: never substance use type: does not use what type of physical activity do you participate in: none seatbelt use: always do you feel safe at home: Yes ROS ROS ED Constitutional Constitutional ED: Denies chills or fever(s) Eyes Eyes: Denies blurry vision or change in vision ENT ENT ED: Denies rhinorrhea or sore throat Cardiovascular Cardiovascular: Denies chest pain or palpitations Respiratory/Chest Respiratory/Chest: Reports cough and dyspnea Gastrointestinal Gastrointestinal: Denies nausea or vomiting Genitourinary Genitourinary ED: Reports urinary frequency; Denies dysuria or hematuria Musculoskeletal Musculoskeletal: Denies back pain or neck pain Integumentary Denies abscess or rash Neurologic Neurologic: Denies headache(s) or weakness Allergic/Immunologic Allergic/Immunologic ED: Denies mouth swelling or urticaria EXAM Physical Exam Const Vital Signs: 04/20/25 19:37 04/20/25 19:41 04/20/25 19:57 Temperature 97.2 F L 97.2 F L Temperature Source Temporal Temporal Pulse Rate 90 90 Respiratory Rate 22 H 22 H Respiratory Effort Normal Non-Labored Respiratory Depth Normal Respiratory Pattern Normal Blood Pressure 154/74 H 154/74 H Blood Pressure Mean 100 100 Pulse Ox 98 98 Oxygen Delivery Method Room Air Room Air Room Air 04/20/25 20:33 04/20/25 21:00 04/20/25 22:21 Temperature 97.8 F Temperature Source Oral Pulse Rate 85 87 Respiratory Rate 20 H 19 H Respiratory Effort Respiratory Depth Respiratory Pattern Blood Pressure 150/78 H 166/78 H 110/96 H Blood Pressure Mean 102 107 100 Pulse Ox 97 99 Oxygen Delivery Method Room Air Room Air 04/20/25 22:46 Temperature Temperature Source Pulse Rate 80 Respiratory Rate 18 Respiratory Effort Respiratory Depth Respiratory Pattern Blood Pressure 162/82 H Blood Pressure Mean 108 Pulse Ox 98 Oxygen Delivery Method Room Air Positive well nourished and well developed Constitutional Narrative: BMI is 35.6. General Appearance ED: well developed and NAD HEENT Reports moist mucous membranes Neck supple and no JVD Resp normal respiratory effort and clear to auscultation bilaterally Auscultation: diminished lung sounds bilateral lower Cardio regular rate and regular rhythm GI non-tender and non-distended Palpation: soft Extremity Extremity Narrative: There is trace edema of the lower extremities bilaterally. General Extremety ED: Negative for tenderness Neuro oriented x3, CN's II-XII intact bilaterally and no sensory deficits noted [place] Coma Scale: document GCS findings Spontaneous Obeys Commands Oriented 15 Sensorium / Orientation: alert Speech: speech normal Motor Exam: strength 5/5 throughout Psych mental status grossly normal MDM MDM MDM Narrative Medical decision making narrative: Differential diagnosis includes cardiac dysrhythmia, cardiac ischemia, pneumonia, bronchitis, congestive heart failure, electrolyte abnormality, urinary tract infection, and chronic kidney disease. EKG will be obtained to assess for cardiac dysrhythmia and cardiac ischemia. Chest x-ray will be obtained to assess for pneumonia, bronchitis, and congestive heart failure. CBC will be obtained to assess for leukocytosis and anemia. Basic metabolic profile will be obtained to assess for electrolyte abnormality renal function. High-sensitivity troponin will be obtained to assess for cardiac ischemia. 2-hour repeat high-sensitivity troponin will be obtained to assess for ongoing cardiac ischemia. BNP will be obtained to assess for congestive heart failure. Urinalysis will be obtained to assess for urinary tract infection. Lab Data Attestation: I reviewed the patient's lab results. Lab results narrative: CBC was reviewed. There is a slight anemia with a hemoglobin of 10.9 and hematocrit 34.1. Platelets are slightly low at 122. Basic metabolic profile was reviewed. BUN was 30 and creatinine was 3.18. These are consistent with previous results. Initial high-sensitivity troponin was reviewed and was normal at 25. BNP was reviewed and was slightly elevated at 2096. Urinalysis was reviewed. There is no evidence of urinary tract infection or hematuria. 2-hour repeat high-sensitivity troponin was reviewed and was normal at 25. Labs: Laboratory Results - last 24 hr 04/20/25 04/20/25 04/20/25 19:58 20:44 21:58 WBC 7.5 RBC 3.49 L Hgb 10.9 L Hct 34.1 L MCV 97.7 H MCH 31.2 MCHC 32.0 RDW Std Deviation 52.3 H RDW Coeff of Misael 14.5 Plt Count 122 L MPV 9.7 Immature Gran % (Auto) 1.200 H Neut % (Auto) 79.5 H Lymph % (Auto) 10.3 L [place] % (Auto) 7.6 Eos % (Auto) 0.9 Baso % (Auto) 0.5 Absolute Neuts (auto) 5.9 Absolute Lymphs (auto) 0.77 L Nucleated RBC % 0 Sodium 139 Potassium 4.3 Chloride 100 Carbon Dioxide 26.8 Anion Gap 11 BUN 30 H Creatinine 3.18 H Estim Creat Clear Calc 22.62 L Est GFR (MDRD) Non-Af 19 L BUN/Creatinine Ratio 9.4 L Glucose 146 H Calcium 8.9 Troponin T High Sens 25 H Troponin T Hi Sens 2 Hr 25 H NT pro BNP II 2095 H Urine Color Yellow Urine Clarity Clear Urine pH 8.0 Ur Specific [place] 1.010 Urine Protein 30 H Urine Glucose (UA) 250 H Urine Ketones Negative Urine Occult Blood Negative Urine Nitrite Negative Urine Bilirubin Negative Urine Urobilinogen Normal Ur Leukocyte Esterase Negative Urine RBC 0-5 SEEN Urine WBC 0-5 SEEN Ur Squamous Epith Cells 0-5 SEEN Urine Bacteria 0 SEEN Urine Mucus 0 SEEN Radiography Chest X-Ray - ED: 2 View, Read by ED Physician, Read by Radiologist and No Acute Disease Diagnostic Testing: Clinical Impression(s) from Imaging Studies Chest X-Ray 04/20/25 20:40 IMPRESSION: No evidence of acute cardiopulmonary disease. Reading Location: [facility] and lateral chest x-ray was obtained. There are 2 views. On my independent interpretation, lung mccabe are clear. There is normal cardiac silhouette. Bony thorax is normal. There is no acute process noted. Radiologist also interpreted the x-ray and agrees. EKG Initial EKG: Attestation: I personally reviewed and interpreted this EKG as follows: Interpretation: Sinus Rhythm (With occasional PACs with a rate of 85) and No Acute Injury Pattern Comments: EKG was obtained. On my independent interpretation, it showed a normal sinus rhythm with occasional PACs with a rate of 85. NM interval, QRS interval, and QTc intervals were all normal. [place] was normal. There are no acute ST or T wave changes. Prior EKG tracings: available for review Prior: Unchanged (12/08/2024) Treatment and Re-Evaluation :: Patient was given a dose of Lasix here. Patient was requesting a dose of oxycodone for his restless leg syndrome. This was given. Patient was feeling somewhat better on reevaluation. Patient was advised of his findings. Patient is not hypoxic. Patient states he is scheduled for dialysis again in 2 days. Patient states he does take hemodialysis. Patient no longer takes peritoneal dialysis. Patient was instructed to follow-up with his dialysis session in 2 days. Patient was instructed to follow-up with his primary care physician in 3 to 5 days. Patient was instructed to return if worse in any way. Patient understood and was agreeable with plan. All questions were answered. Discharge Plan Triage Chief Complaint: Shortness of Breath ED Provider: Jesus Christian Dx/Rx/DC Orders Clinical Impression: Chronic systolic heart failure, Zach's granulomatosis, Chronic kidney failure, Essential hypertension Instructions: ED Heart Failure, Congestive (CHF), ED Chronic Kidney Disease (CKD) Prescriptions: No Action (DME) handicap placard See Rx Instructions .ROUTE .MEDSUPPLY Qty: 1 0RF Rx Instructions: Length of time: 5 years Diagnosis: Impaired physical mobility z74.09 (DME) handicap placard See Rx Instructions .ROUTE .MEDSUPPLY Qty: 1 0RF Rx Instructions: Length of time: 5 years Diagnosis: Impaired physical mobility z74.09 triamcinolone acetonide 0.1 % ointment 1 applic topical DAILY PRN (Reason: rash/itching) Qty: 15 0RF mirtazapine 15 mg tablet 15 mg PO QHS Qty: 90 1RF gabapentin 100 mg capsule 300 mg PO QHS magna life 1 dose topical QHS PRN Rx Instructions: magna life cream topically to bilateral feet every evening oxycodone-acetaminophen 5-325 mg tablet 1 tab PO Q6H PRN PRN (Reason: severe pain) cephalexin 500 mg capsule 500 mg PO TID Qty: 12 0RF Neosporin (wxp-ska-ujyco) 3.5mg-400 unit- 5,000 unit/gram ointment 1 applic topical TID Qty: 28.3 0RF Rx Instructions: apply to circumcision oxycodone 5 mg tablet 5 mg PO Q6H PRN (Reason: pain) 7 Days Qty: 10 0RF omeprazole 40 mg capsule,delayed release(DR/EC) 40 mg PO DAILY Qty: 90 1RF melatonin 3 mg capsule 3 mg PO HS PRN (Reason: sleep) Qty: 30 0RF ropinirole 0.25 mg tablet 0.25 mg PO QHS Qty: 30 2RF tamsulosin 0.4 mg capsule 0.8 mg PO QDAY Qty: 60 1RF metoprolol tartrate 25 mg tablet 25 mg PO DAILY Qty: 90 0RF Primary Care Provider: Alycia Jennings Referrals: Alycia Jennings MD [Primary Care Provider, Family Practice] - 3-5 Days Print Language: Kyrgyz Disposition Disposition: Home, Self Care
--- OUTSIDE RECORDS SUMMARY | 2025-04-20 20:24 | XMS RPT_ITS | CCD ---
Author Organization [facility] Care Team Providers Care Humanities Coordinator Name Role Phone Danielle Graf Unavailable Unavailable [...] Provide r RAHEL MATA Primary Care Provider [phone] Dr. Maegan Donohue Emergency Provider Dr. José Miguel Mitchell Admit Provider Dr. José Miguel Mitchell Attending Provider Dr. José Miguel Mitchell Other Provider Dr. Cornel Martinez Attending Provider Dr. Cornel Martinez Other Provider Dr. Matilde Noguera Primary Care Provider Dr. Matilde Noguera Attending Provider Dr. Matilde Noguera Referring Provider Cetashia, Dr. Julio Monteiro Attending Provider Stuart, Dr. Julio Monteiro Other Provider Dr. Matilde Noguera Primary Care Provider Dr. Matilde Noguera Attending Provider [phone] Dr. Matilde Noguera Referring Provider [phone] Cebul, Dr. Julio Monteiro Attending Provider Cetashia, Dr. Julio Monteiro Other Provider Andrea SUMMERS, [facility] Provide r Dr. Matilde Noguera Primary Care Provider Dr. Matilde Noguera Attending Provider [phone] Dr. Matilde Noguera Referring Provider [phone] Unavailable Primary Care Provider Unavailabl e Andrea SUMMERS, [facility] Provide r Dr. Matilde Noguera Primary Care Provider Dr. Matilde Noguera Attending Provider [phone] Dr. Matilde Noguera Referring Provider [phone] Dr. Tha Leblanc Emergency Provider [phone] Chey Bates Admit Provider Dr. Chey Bates Attending Provider Dr. Chey Bates Other Provider Dr. Jazmyne Smith Other Provider Dr. Tha Leblanc Emergency Provider [phone] Chey Bates Admit Provider Dr. Chey Bates Attending Provider Dr. Chey Bates Other Provider Dr. Jazmyne Smith Other Provider JAMES YADAV Attending Unavaila BRIGITTE Watters Consulting Unavailrebecca e CHEY BATES Referring Unavailable ZENOBIACHIDI JIMENEZ Admitting Unavailable Dr. Matilde Noguera Primary Care Provider Dr. Matilde Noguera Attending Provider [phone] Dr. Matilde Noguera Referring Provider [phone] Tha Leblanc Emergency Provider [phone] Chey Bates Admit Provider Dr. Chey Bates Attending Provider Dr. Chey Bates Other Provider Dr. Jazmyne Smith Other Provider [phone] Matilde Noguera Primary Care Provider Dr. Matilde Noguera Attending Provider [phone] Dr. Matilde Noguera Referring Provider [phone] CHRISTIAN White Attending Provider Unavailable Unavailable Primary Care Provider UnavailDr. Matilde Kaplan Primary Care Provider Dr. Matilde Noguera Attending Provider [phone] Dr. Matilde Noguera Referring Provider [phone] JULIUS Grove Attending Provider [phone] Dr. Matilde Noguera MD Primary Care Provider [phone] Dr. Jesus Christian DO Attending Provider Dr. Jesus Christian DO Emergency Provider Dr. Matilde Noguera MD Attending Provider Dr. Matilde Noguera MD Referring Provider Brianne SUMMERS, Dr. Kael Clemens Attending Provider Brianne SUMMERS, Dr. Kael Clemens Referring Provider [phone] Alice SUMMERS, Dr. Arnold Primary Care Provider [phone] Alice SUMMERS, Dr. Arnold Attending Provider Dr. Matilde Noguera MD Referring Provider José Miguel Grove Attending Provider Alice SUMMERS, Matilde Kenney Primary Care Provider [phone] JOSÉ MIGUEL HEWITT DO Attending Unavailable JOSÉ MIGUEL HEWITT DO Primary Care Unavailable JOSÉ MIGUEL HEWITT DO Admitting Unavailable BUCKTOWARSININO Walker MD Admitting Unava ilable BUCKTOWARSING, INO SUMMERS Attending Unava ilable BUCKTOWARSINJoanne, INO SUMMERS Primary Care Unava ilable JAQUI, TAYLOR Referring Unavailable ALICE, MATILDE Primary Care Unavailable JAQUI, TAYLOR Referring Unavailable ALICE, MATILDE Primary Care Unavailable JOSÉ MIGUEL HEWITT Referring Unavailable ALICE, MATILDE Primary Care Unavailable GAYREYNA, FANG Consulting Unavailable FLOR JENSEN Admitting Unavailable AZIZA CHRISTIANSON Attending Unavailable Alice SUMMERS, Dr. Arnold Primary Care Provider [phone] Ronald CAST, Dr. Yanez Attending Provider Dr. Beau Cardenas DO Emergency Provider Jason SUMMERS, Dr. Mclean Emergency Provider Radha SUMMERS, Dr. Kyler Gaona Primary Care Provider Kyler Garcia MD [facility] Care Provider Dr. Matilde Noguera MD Primary Care Physician Dr. Matilde Noguera MD Attending Physician [phone] Dr. Matilde Noguera MD Referring Provider Dr. Beau Cardenas DO Attending Physician Dr. Beau Cardenas DO Emergency Department Physic kait Dr. Vinay Gomez MD Attending Physician Jason SUMMERS, Dr. Mclean Emergency Department Physici an Radha SUMMERS, Dr. Kyler Gaona Primary Care Physician Brianne SUMMERS, Dr. Kael Clemens Attending Physician Brianne SUMMERS, Dr. Kael Clemens Referring Provider KYLER GARCIA Attending Unavailable GARCIA, KYLER Primary Care Unavailable GARCIAKYLER Attending Unavailable GARCIA, KYLER Primary Care Unavailable DAVIS FORTE, NATHANAEL Referring Unavailab le GARCIA, KYLER Primary Care Unavailable DAVIS FORTE, NATHANAEL Attending Unavailab le RADHA, KYLER Primary Care Unavailable KYLER GARCIA Referring Unavailable GARCIA, KYLER Primary Care Unavailable Radha SUMMERS, Dr. Kyler Gaona Referring Provider [phone] Easton MADRID, Kerri Attending Physician [phone] Kerri Raza Referring Provider [phone] Chel SUMMERS, Dr. Lee Attending Physician [phone] Kyler Garcia Primary Care Unavailable Vinay Gomez Attending Unavailable Brianne, Kael Clemens Referring Unavailable BrianneKael howe Attending Unavailable GarciaKyler Primary Care Unavailable Rewey, Matilde Primary Care Unavailable Brianne, Hesham Referring Unavailable Brianne, Kael Clemens Attending Unavailable Brianne, Hesham Attending Unavailable Brianne, Hesham Referring Unavailable GarciaKyler Primary Care Unavailable Alice, Matilde Primary Care Unavailable Rewey, Matilde Referring Unavailable José Miguel Ruelas Attending Unavailable Alice, Matilde Primary Care Unavailable Alice, Matilde Referring Unavailable Alice, Matilde Attending Unavailable Jesus Milligan Attending Unavailable Garcia, Kyler Primary Care Unavailable Mccormack, Kerri Referring Unavailable Garcia Kyler Referring Unavailable Garcia, Kyler Primary Care Unavailable Mccormack, Kerri Attending Unavailable Alice, Matilde Referring Unavailable Rewey, Matilde Attending Unavailable Rewey, Matilde Primary Care Unavailable Rewey, Matilde Referring Unavailable Alice, Matilde Attending Unavailable Rewey, Matilde Primary Care Unavailable Rewey, Matilde Primary Care Unavailable Rewey, Matilde Referring Unavailable Rewey, Matilde Attending Unavailable Garcia, Kyler Primary Care Unavailable Mccormack, Kerri Referring Unavailable Mccormack, Kerri Attending Unavailable Brianne, Hesham Referring Unavailable Brianne, Hesham Attending Unavailable Alice, Matilde Primary Care Unavailable Jesus Christian Attending Unavailable Rewey, Matilde Primary Care Unavailable Rewey, Matilde Primary Care Unavailable Beau Cardenas Attending Unavailable Allergies Allergy Classification Reported Allergen(s) Allergy Type Date of Onset Reaction(s) Facility (20 sources) Aluminum aspirin; Translations: [ASPIRIN] Drug Allergy 9 Other [place], [place] (20 sources) Aspirin Drug Allergy 2 Other: See Comments [facility] (16 sources) Other Allergy to substance 2 [facility] (8 sources) Seasonal allergy; Translations: [SEASONAL ALLERGIES] Allergy to substance 2 Other: See Comments [facility] (7 sources) Finasteride Drug Allergy 5 mastodynia [facility] (1 source) Aspirin Drug Allergy [facility] (1 source) Aspirin Drug Allergy 5 [facility] (1 source) Finasteride Drug Allergy 5 [facility] Medications Current Medications Medication Drug Class(es) Dates Sig (Normalized) Sig (Original) acetaminophen 325 mg / oxyCODONE hydrochloride 5 mg oral tablet (20 sources) Opioid Agonist Start: 02-23-2025 Start: 11-30-2024 End: 12-05-2024 take 1 tablet by mouth every six hours as needed for pain oxyCODONE-acetaminophen (Percocet) 5-325 MG tablet Indications: Neuropathy Take 1 tablet by mouth every 6 hours as needed for severe pain (7-10) for up to 5 days. 15 tablet 11/30/2024 12/05/2024 Active Start: 12-31-2022 End: 01-05-2023 take 1 tablet [...] 0 01/11/2021 02/10/2021 Active Start: 11-04-2020 End: 02-12-2025 Oxycodone-Acetaminophen (Per cocet) 5-325 mg tablet Discontinued 1 {tbl} PO Q8H as needed for pain 90 30 0 November 01, 2024 November 30, 2024 12:00am December 01, 2024 12:07am Chronic neuropathic pain Neuralgia and neuritis, unspecified Other chronic pain Start: 11-04-2020 End: 02-13-2022 take 1 tablet [...] 12 HOURS PRN, Pain Moderate (4-6), Starting 12/14/19 at 0125 Maximum dose of acetaminophen is [...] Start: 10-21-2019 take 1 tablet by wolfgang th every six hours as needed for pain 1 tablet, Oral, EVERY 6 HOURS PRN, Pain Moderate (4-6), Pain Severe (7-10), Starting Samia 10/21/19 at 0022 Maximum dose of acetaminophen is 4000 mg from all sources in 24 hours. Comment on above: TAKE 1 TABLET BY WOLFGANG TH EVERY 8 HOURS NEEDED FOR PAIN FOR 30 DAYS albuterol 0.833 mg/ml / ipratropium bromide 0.167 mg/ml inhalant solution (1 source) Anticholinergic, beta2-Adrenergic Agonist Start: 0 1 ampule, Inhalation, EVERY 4 HOURS PRN, Shortness of Breath, Starting 10/20/19 at 2227 albuterol sulfate HFA 108 (90 [...] 04, 2018 12:00am November 10, 2018 8:48am bacitracin 0.4 unt/mg / neomycin 0.0035 mg/mg / polymyxin b 5 unt/mg topical ointment (2 sources) Aminoglycoside Antibacterial, Polymyxin-class Antibacterial Start: 02-23-2025 benzocaine 200 mg/ml topical spray (9 sources) Standardized Chemical Allergen Start: 11-30-2024 End: 12-30-2024 benzocaine (Hurricaine) 20 % aerosol Use 2 sprays in the mouth or throat as needed (sore throat). 57 g 11/30/2024 12/30/2024 Active Start: 11-28-2024 End: 11-30-2024 2 spray, Mouth/Throat, PRN, sore throat, Starting on 11/28/24 at 1049 take 2 spray(s) by m out four times daily as needed benzocaine (AMERICAINE) 20 % oral spray Apply 2 sprays to affected area four times a day as needed. Active benzonatate 100 mg oral capsule (1 source) Non-narcotic Antitussive Start: 10-20-2019 take 100 mg by mouth three times daily as needed for cough 100 mg, Oral, 3 TIMES DAILY PRN, Cough, Starting Fri10/20/19 at 2232 betamethasone 0.0005 mg/mg topical ointment (1 source) Corticosteroid Start: 04-06-2020 apply 1 dose topically twice daily Topical, 2 TIMES DAILY, First dose on Fri04/06/20 at 2100 Apply to tip of penis. Substituted for Betamethasone valerate (VALISONE). budesonide 0.25 mg/ml inhalant solution (12 sources) Corticosteroid Start: 04-06-2020 take 500 ug by mouth twice daily 500 mcg, Nebulization, 2 TIMES DAILY, First dose on Fri04/06/20 at 2100 Rinse mouth out with water [...] per use 60 ampule 3 07/22/2019 Active calcium carbonate 500 mg chewable tablet (5 sources) Start: 03-10-2023 take 2 tablets by mouth three times daily in the evening calcium carbonate (TUMS) 500 mg chew Take 2 tablets by mouth three times a day for 2 days. 12 tablet 03/10/2023 4:07 PM EDT 03/10/2023 Active capsaicin 0.25 mg/ml topical cream (9 sources) Start: 11-29-2024 End: 11-30-2025 capsaicin (Zostrix) 0.025 % cream Apply topically 2 times daily. 56.6 g 11/30/2024 11/30/2025 Active CAPSAICIN TOP Ap ply 1 application to affected area two times a day. Active carboxymethylcellulose sodium 5 mg/ml ophthalmic solution (9 sources) Start: 11-26-2024 End: 11-30-2024 take 1 drop(s) into the eye(s) four times daily as needed carboxymethylcellulose PF (Refresh Plus) 0.5 % ophthalmic solution Administer 1 drop into both eyes 4 times daily as needed for dry eyes. 30 each 11/30/2024 Active carboxymethylcel lulose (REFRESH) 0.5 % drop 1 drop as needed. Active cefdinir 300 mg oral capsule (1 source) Cephalosporin Antibacterial Start: 04-25-2020 End: 05-02-2020 take 1 capsule by mouth once daily cefdinir (OMNICEF) 300 MG capsule Take 1 capsule by mouth daily for 7 days 7 capsule 0 04/25/2020 05/02/2020 Active cephalexin 500 mg oral capsule (19 sources) Cephalosporin Antibacterial Start: 02-23-2025 take 1 capsule by mouth three times daily Start: 11-09-2022 End: 01-14-2023 take 1 capsule by mouth every twelve hours Cephalexin 500 mg capsule Discontinued 500 mg PO EVERY 12 HOURS 14 0 November 09, 2022 12:00am January 14, 2023 11:32am Start: 04-04-2020 End: 04-25-2020 take 1 capsule by mouth twice daily cephALEXin (KEFLEX) 500 MG capsule Take 1 capsule by mouth 2 times daily 14 capsule 0 04/04/2020 04/25/2020 Discontinued (LIST CLEANUP) ciprofloxacin 500 mg oral tablet (12 sources) Quinolone Antimicrobial Start: 01-05-2025 take 1 tablet by mouth every twelve hours ciprofloxacin HCl (CIPRO) 500 mg tablet Indications: Recurrent UTI (urinary tract infection) Take 1 tablet by mouth every 12 hours. 01/05/2025 Active Start: 01-05-2025 End: 02-18-2025 take 1 tablet by mouth twice daily Ciprofloxacin Hcl (Cipro) 500 mg tablet Discontinued 500 mg PO TWICE A DAY 20 10 0 January 05, 2025 12:00am February 18, 2025 4:21pm Start: 12-15-2019 End: 12-17-2019 take 1 tablet by mouth once daily ciprofloxacin (CIPRO) 500 MG tablet Take 1 tablet by mouth daily for 1 day 1 tablet 0 12/16/2019 12/17/2019 Active Start: 12-14-2019 End: 12-14-2019 ciprofloxacin (CIPRO) IVPB 4 00 mg clopidogrel 75 mg oral tablet (20 sources) P2Y12 Platelet Inhibitor Start: 11-25-2024 End: 01-30-2025 take 1 tablet by mouth once daily clopidogrel (Plavix) 75 MG tablet Take 1 tablet (75 mg) by mouth daily. 30 tablet 1 12/01/2024 01/30/2025 Active Start: 11-10-2018 End: 11-10-2018 take 1 tablet by mouth once daily Clopidogrel (Plavix) 75 mg tablet Discontinued 75 mg PO .COMPLEX 30 3 November 10, 2018 12:00am November 10, 2018 [...] 3 TIMES DAILY PRN, abdominal cramping/pain, Starting Fri10/20/19 at 2232 250 ml DOBUTamine 2 mg/ml injection (1 source) beta-Adrenergic Agonist Start: 12-14-2019 DOBUTamine (DOBUTREX) 500 mg in dextrose 5 % 250 mL infusion docusate sodium 50 mg / sennosides, pen[facility] 8.6 mg oral tablet (4 sources) Start: [...] 0 Active finasteride 5 mg oral tablet (10 sources) 5-alpha Reductase Inhibitor take 1 tablet by mouth once daily finasteride (PROSCAR) 5 mg tablet Indications: Benign prostatic hyperplasia without lower urinary tract symptoms Take 5 mg by mouth once daily. Active gabapentin 100 mg oral capsule (20 sources) Anti-epileptic Agent Start: 12-07-2024 take 3 capsules by mouth at bedtime Start: 11-30-2024 End: 11-30-2024 take 300 mg by mouth once daily 300 mg, Oral, Nightly, First dose (after last modification) on Fri11/30/24 at 2100 Start: 11-30-2024 End: 11-30-2024 take 300 mg by mouth once daily 300 mg, Oral, Nightly, First dose (after last modification) on Fri11/30/24 at 2100 Start: 11-30-2024 End: 11-30-2025 take 1 capsule by mouth once daily gabapentin (Neurontin) 300 MG capsule Take 1 capsule (300 mg) by mouth Nightly. 30 capsule 11 11/30/2024 11/30/2025 Active Start: 11-25-2024 End: 11-30-2024 take 200 mg by mouth once daily 200 mg, Oral, Nightly, First dose on Samia 11/25/24 at 2100 Start: 04-18-2023 End: 09-01-2023 take 200 mg [...] August 29, 2022 12:00am Start: 02-13-2022 End: 01-13-2025 take 2 capsules by mouth at bedtime Gabapentin 100 mg capsule Discontinued 200 mg PO AT BEDTIME 60 0 November 15, 2024 4:53pm December 07, 2024 10:25am Start: 02-13-2022 End: 08-29-2022 take 200 mg by mouth at bedtime Gabapentin Discontinue d 200 MG PO AT BEDTIME February 13, 2022 10:37am August 29, 2022 9:57am Start: 11-04-2020 End: 02-13-2022 take 1 capsule by mouth three times daily Gabapentin 100 mg Capsule Discontinued 100 mg PO THREE TIMES A DAY November 04, 2020 12:00am February 13, 2022 10:41am neuropathy Start: 08-25-2019 End: 05-30-2020 take 1 capsule [...] ONCE DAILY AT BEDTIME FOR 90 DAYS handicap placard (20 sources) Start: 03-12-2023 handicap placard Active 0 .ROUTE .MEDSUPPLY 1 March 12, 2023 10:33am Impaired physical mobility Other reduced mobility Length of time: 5 years Diagnosis: Impaired [...] placard Discontinue d 0 .ROUTE .MEDSUPPLY 1 March 12, 2023 10:31am March 12, 2023 10:33am Impaired physical mobility Other reduced mobility Length of time: 5 years Diagnosis: Impaired [...] placard Discontinue d 0 .ROUTE .MEDSUPPLY 1 March 12, 2023 12:00am March 12, 2023 10:31am Impaired physical mobility Other reduced mobility Length of time: 5 years Diagnosis: Impaired physical mobility Start: 03-12-2023 End: 03-12-2023 handicap placard Discontinue d 0 .ROUTE .MEDSUPPLY 1 March 11, 2023 11:00pm March 12, 2023 9:31am Length of time: 5 years Diagnosis: Impaired physical mobility Start: 03-12-2023 End: 03-12-2023 handicap placard Discontinue d 0 .ROUTE .MEDSUPPLY March 12, 2023 12:00am March 12, 2023 10:31am Length of time: 5 years Diagnosis: Impaired physical mobility Start: 08-29-[address] Active 0 .ROUTE .MEDSUPPLY 1 0 August 29, 2022 10:30am Impaired physical mobility Other reduced mobility Length of time: 5 years Diagnosis: Impaired [...] placard Discontinue d 0 .ROUTE .MEDSUPPLY 1 0 August 29, 2022 10:29am August 29, 2022 10:31am Impaired physical mobility Other reduced mobility Length of time: 5 years Diagnosis: Impaired [...] placard Discontinue d 0 .ROUTE .MEDSUPPLY 1 0 August 29, 2022 12:00am August 29, 2022 10:30am Impaired physical mobility Other reduced mobility Length of time: 5 years Diagnosis: Impaired [...] (HUMALOG) injection vial 0-3 Units magna life (6 sources) Start: 10-15-2024 Start: 10-15-2024 magna life Act gavi 1 NMA TOPICAL AT BEDTIME NEEDED October 15, 2024 12:00am magna life cream topically to bilateral feet every evening Complies with drug therapy Start: 10-15-2024 Start: 10-15-2024 magna life Act gavi TOPICAL October 15, 2024 12:00am magna life cream topically to bilateral feet every evening melatonin 5 mg oral tablet (20 sources) Start: 11-28-2024 End: 11-30-2024 take 1 tablet by mouth once daily melatonin 5 MG tablet Take 1 tablet (5 mg) by mouth Nightly. 1 tablet 11/30/2024 Active Start: 09-07-2024 End: 10-14-2024 take 1 capsule by mouth at bedtime as needed for sleep Start: 10-20-2019 take 3 mg by mouth o nce daily as needed for sleep 3 mg, Oral, NIGHTLY PRN, Sleep, Starting Fri10/20/19 at 2232 metoprolol tartrate 25 mg oral tablet (20 sources) beta-Adrenergic Richy Start: 11-25-2024 End: 11-30-2024 take 25 mg by mouth twice daily 25 mg, Oral, 2 times daily, First dose on Fri11/25/24 at 0900 Start: 01-14-2023 End: 04-13-2025 take 1 tablet by mouth once daily Metoprolol Tartrate 25 mg tablet Discontinued 25 mg PO DAILY 90 0 December 01, 2023 4:07pm December 11, 2023 10:45am BP Start: 12-14-2019 metoprolol (LO PRESSOR) injection 5 mg Start: 05-28-2018 End: 01-14-2023 take 1 tablet by mouth twice daily Metoprolol Tartrate 25 MG tablet Discontinued 25 mg PO TWICE A DAY May 28, 2018 8:45pm January 14, 2023 9:36am BP Start: 12-20-2013 take 0.5 tablet by m outh twice daily metoprolol tartrate, short acting, 25 mg tablet Take 0.5 tablets by mouth twice daily. 30 tablet 0 12/20/2013 Active Start: 12-01-2013 End: 05-28-2018 Metoprolol Tartrate 25 MG ta blet Discontinued 12.5 mg PO TWICE A DAY 14 0 December 01, 2013 12:00am May 28, 2018 8:46pm Start: 12-01-2013 End: 05-28-2018 take 12.5 mg by mouth twice daily Metoprolol Tartrate Discontinued 12.5 MG PO TWICE A DAY 14 December 01, 2013 12:00am May 28, 2018 8:46pm metoprolol tartr ate (Lopressor) 25 MG tablet every 12 hours. Active Comment on above: Take 0.5 tablets by mouth twice daily. Misc. Devices MISC (10 sources) Start: 07-09-2019 Misc. 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 Use prn bathing. 1 Device 0 07/09/2019 Active morphine sulfate (PF) injection 2 mg (1 source) Start: 04-06-2020 morphine sulfate (PF) injection 2 mg mupirocin 0.02 mg/mg topical ointment (10 sources) RNA Synthetase Inhibitor Antibacterial Start: 07-22-2019 mupirocin (BACTROBAN) 2 % ointment Add 1/2 [...] on Fri11/30/24 at 0637, +++ For RR naloxone 4 mg/actuation nasal spray (NARCAN) (5 sources) Start: 11-30-2024 End: 11-30-2025 naloxone 4 mg/actuation nasal spray (NARCAN) Indications: Chronic midline low back pain without sciatica Use 4 mg in the nose as directed. 11/30/2024 11/30/2025 Active nitroglycerin 0.4 mg sublingual tablet (1 source) Nitrate Vasodilator Start: 12-13-2019 nitroGLYCE RIN (NITROSTAT) SL tablet 0.4 mg 2 ml ondansetron 2 mg/ml injection (2 sources) Serotonin-3 Receptor Antagonist Start: 12-13-2019 ondansetron (ZOFRAN) injection 4 mg Start: 10-20-2019 take 4 mg by mouth e very eight hours as needed for nausea 4 mg, Oral, EVERY 8 HOURS PRN, Nausea, Vomiting, Starting Fri10/20/19 at 2232 oxyCODONE hydrochloride 5 mg oral tablet (3 sources) Opioid Agonist Start: 02-23-2025 take 1 tablet by mouth every six hours as needed for pain End: 08-07-2023 oxyCODONE (Oxy-IR) 5 MG imme diate release capsule every 6 hours. 0 08/07/2023 Discontinued pantoprazole 40 mg delayed release oral tablet (2 sources) Proton Pump Inhibitor Start: 12-14-2019 take 40 mg by mouth once daily before breakfast 40 mg, Oral, DAILY BEFORE BREAKFAST, First dose on Fri12/14/19 at 0700 Do not crush or break. Substituted for Omeprazole (PRILOSEC). Start: 10-21-2019 take 40 mg by mouth once daily before breakfast 40 mg, Oral, DAILY BEFORE BREAKFAST, First dose on Fri10/21/19 at 0700 Do not crush or break. [...] be administered over at least 10 minutes. rOPINIRole 0.25 mg oral tablet (7 sources) Nonergot Dopamine Agonist Start: 12-07-2024 End: 01-11-2025 take 1 tablet by mouth at bedtime sennosides, penitentiary 8.6 mg oral tablet (9 sources) Start: 01-13-2025 take 2 tablets by mouth once daily senna (SENOKOT) 8.6 mg tab Take 2 tablets by mouth once daily. 01/13/2025 Active Start: 03-10-2023 End: 01-13-2025 take 2 tablets by mouth twice daily Sennosides (Senna) 8.6 mg tablet Discontinued 17.2 mg PO TWICE A DAY March 12, 2023 12:00am April 02, 2023 9:30am simethicone 80 mg chewable tablet (9 sources) Start: 11-26-2024 End: 12-10-2024 simethicone (Mylicon) 80 MG chewable tablet Chew 1 tablet (80 mg) 4 times daily as needed for flatulence for up to 10 days. 30 tablet 11/30/2024 12/10/2024 Active take 1 tablet by wolfgang th every six hours as needed for gastroesophageal reflux disease and gastroesophageal reflux disease simethicone, chewable (MYLICON) 80 mg chewable tablet Indications: Gastroesophageal reflux disease, unspecified whether esophagitis present Take 80 mg by mouth every 6 hours as needed. Active sodium chloride flush 0.9 % injection 3 mL (2 sources) Start: 04-25-2020 sodium chlorid e flush 0.9 % injection 3 mL Start: 12-13-2019 sodium chlorid e flush 0.9 % injection 3 mL tamsulosin hydrochloride 0.4 mg oral capsule (20 sources) alpha-Adrenergic Richy Start: 11-25-2024 End: 11-30-2024 take 0.4 mg by mouth once daily 0.4 mg, Oral, Daily, First dose on Fri11/25/24 at 0900, Do not crush, chew, or split. Start: 01-15-2024 End: 01-20-2025 take 2 capsules by mouth once daily Tamsulosin 0.4 mg capsule Discontinued 0.8 mg PO daily 60 1 November 15, 2024 4:53pm January 20, 2025 12:51pm Start: 12-28-2019 take 1 capsule by mo uth twice daily tamsulosin (FLOMAX) 0.4 MG capsule Take 1 capsule by mouth 2 times daily 60 capsule 5 12/28/2019 Active Start: 08-11-2018 take 0.4 mg by mouth once pretty y 0.4 mg, Oral, DAILY, First dose on Fri12/14/19 at 0900 Do not crush or break. take 0.8 mg by mouth once daily tamsulosin (FLOMAX) 0.4 mg Indications: Benign prostatic hyperplasia without lower urinary tract symptoms Take 0.8 mg by mouth once daily. Active tamsulosin (Flom ax) 0.4 MG 24 hr capsule Every 24 hours. Active take 1 capsule by mo uth every twenty-four hours in the morning tamsulosin (Flomax) 0.4 MG 24 hr capsule Take 1 capsule by mouth in the morning. 0 Active Comment on above: Take 0.4 mg by mouth once daily. triamcinolone acetonide 0.00 1 mg/mg topical ointment (20 sources) Corticosteroid Start: 09-09-2023 Start: 02-20-2022 End: 08-07-2023 triamcinolone (Kenalog) 0.1 % ointment Apply topically 2 times daily. 0 02/20/2022 08/07/2023 Discontinued Start: 04-02-2019 End: 04-09-2019 triamcinolone (KENALOG) 0.1 % ointment Apply topically 2 times daily. 15 g 1 04/02/2019 04/09/2019 Active Completed/Discontinued Medications Medication Drug Class(es) Dates Sig (Normalized) Sig (Original) acetaminophen 500 mg oral tablet (20 sources) Start: 11-30-2024 End: 11-30-2024 take 1 [...] greater than 100.5 F (38 C), Starting Samia 04/06/20 at 1615 Maximum dose of acetaminophen is [...] Start: 10-20-2019 acetaminophen (TYLENOL) tablet 650 mg take 1 tablet by wolfgang th every six hours as needed acetaminophen (TYLENOL) 500 mg tablet Take 500 mg by mouth every 6 hours as needed. Active acetaminophen 300 mg / codeine phosphate 30 mg oral tablet (1 source) Opioid Agonist Start: 01-21-2014 End: 12-01-2022 take 1 tablet by mouth every six hours as needed acetaminophen-codeine (TYLENOL-CODEINE #3) 300-30 mg per tablet Take 1 tablet by mouth every 6 hours as needed for Pain. 30 tablet 0 01/21/2014 12/01/2022 Discontinued Comment on above: Take 1 tablet by wolfgang th every 6 hours as needed for Pain. [id number] 200 actuat albuterol 0.09 mg/actuat metered dose [...] disintegrating oral tablet (1 source) Benzodiazepine Start: End: ALPRAZolam (Xanax) disintegrating tablet 0.25 mg [...] mg / clavulanate 125 mg oral tablet (9 sources) Penicillin-class Antibacterial Start: 05-04-2024 End: 06-08-2024 Amoxicillin-Pot Clavulanate (Augmentin) 500-125 mg tablet Discontinued 1 {tbl} PO daily 10 May 04, 2024 1:00am June 08, 2024 [...] 12/04/2020 Active Start: 11-04-2020 End: 11-30-2024 take 1 tablet by mouth once daily Azathioprine 50 mg tablet Discontinued 50 mg PO DAILY 30 February 06, 2024 11:46am October 15, 2024 1:14pm Start: 11-04-2020 End: 08-29-2022 take 100 mg by mouth once daily Azathioprine Discontin ued 100 MG PO DAILY November 04, 2020 12:00am August 29, 2022 9:57am betamethasone 0.5 mg/ml / clotrimazole 10 mg/ml topical cream (15 sources) Azole Antifungal, Corticosteroid Start: 04-07-2020 End: 08-07-2023 clotrimazole-betamethasone (Lotrisone) cream Apply topically 2 times daily as needed. 0 04/07/2020 08/07/2023 Discontinued Start: 04-07-2020 clotrimazole-b etamethasone (LOTRISONE) 1-0.05 % cream Apply topically 2 times daily. 45 g 0 04/07/2020 Active calcitriol 0.35542 mg oral capsule (20 sources) Vitamin D3 Analog Start: 03-04-2022 End: 08-29-2022 Calcitriol 0.25 mcg capsule Discontinued 0.25 ug PO .3 TIMES WEEKLY June 20, 2022 1:00am August 29, 2022 9:57am Start: 03-04-2022 End: 08-07-2023 take 2 capsules by mouth every other day calcitriol (Rocaltrol) 0.25 MCG capsule Take 2 capsules by mouth every other day. M-W-F 0 03/04/2022 08/07/2023 Discontinued calcitriol (MARGARITO LTROL) 0.5 mcg capsule Take 0.5 mcg by mouth every 48 hours. Active calcium chloride 0.0014 meq/ml / potassium chloride 0.004 meq/ml / sodium chloride 0.103 meq/ml / sodium lactate 0.028 meq/ml injectable solution (1 source) Start: 04-06-2020 End: 04-06-2020 lactated ringers infusion cholecalciferol 0.025 mg oral capsule (20 sources) Vitamin D Start: 02-13-2022 End: 02-13-2022 take 1 capsule by mouth once daily Cholecalciferol (Vitamin D3) 25 mcg (1,000 unit) capsule Discontinued 25 ug PO DAILY February 13, 2022 12:00am February 13, 2022 10:41am Start: 11-04-2020 take 1 tablet by wolfgang th once daily Cholecalciferol (Vitamin D3) (Vitamin D3) 25 mcg (1,000 unit) Tablet Active 25 MCG PO DAILY November 04, 2020 12:00am cholecalciferol (Vitamin D-3) 1.25 MG (28325 UT) capsule Take by mouth. 0 Active [...] 11/25/24 at 1815, If Titrate Infusion? is No: Disregard instructions below. If Titrate infusion? is Yes: Titrate in increments of 0.2 mcg/kg/hr no [...] spray, Nasal , DAILY, First dose on Fri12/14/19 at 0900 Start: 10-21-2019 2 spray, Nasal [...] let Every 24 hours. 0 08/07/2023 Discontinued gelatin adsorbable (GELFOAM) sponge (1 source) Start: [...] Blood sugar less than 70mg/dL, Starting on Fri11/25/24 at 1710, Start infusion following administration of [...] hours PRN, agitation, second line for agitation, [place] PRN Haldol for ONLY if danger to self/others/treatment, Starting on Fri11/29/24 at 1243, IM route of administration preferred. Because of the risk of TdP and QT prolongation, ECG monitoring is recommended if haloperidol is given IV 0.5 ml heparin sodium, porcine [id number] unt/ml prefilled syringe (4 sources) Unfractionated Heparin, Anti-coagulant Start: 11-25-2024 End: 11-30-2024 inject 1 dose by subcutaneous injection twice daily 5,000 Units, SubCUTAneous, Every 12 hours scheduled (2 times per day), First dose on Fri11/25/24 at 0900 Start: 10-25-2019 End: 10-26-2019 heparin [...] HR<60 Leg Brace (Andrés Ankle Brace) misc (16 sources) Start: 08-29-2022 End: 11-28-2022 Leg Brace (Andrés Ankle Brace) misc Discontinued 0 .Route 1 0 August 29, 2022 12:00am November 28, 2022 9:54am Left ankle pain Pain in left ankle and joints of left foot daily Start: 08-29-2022 End: 11-28-2022 Leg Brace (Andrés Ankle Brace) misc Discontinued 0 .Route 1 August 28, 2022 11:00pm November 28, 2022 8:54am daily Start: 08-29-2022 End: 11-28-2022 Leg Brace (Andrés Ankle Brace) misc Discontinued 0 .Route 1 August 29, 2022 12:00am November 28, 2022 [...] sodium chloride 0.9 % 250 mL IVPB 1 ml midazolam 5 mg/ml cartridge (1 source) Benzodiazepine Start: 10-21-2019 End: 10-21-2019 midazolam (VERSED) injection minocycline 100 mg oral capsule (11 sources) Tetracycline-class Drug Start: 03-12-2023 End: 04-02-2023 take 1 capsule by mouth twice daily Minocycline 100 mg capsule Discontinued 100 mg PO TWICE A DAY March 12, 2023 12:00am April 02, 2023 9:30am mirtazapine 15 mg oral tablet (20 sources) Start: 03-10-2023 End: 06-08-2024 take 1 tablet by mouth at bedtime Mirtazapine 15 mg tablet Discontinued 15 mg PO AT BEDTIME 30 December 10, 2023 4:27pm March 09, 2024 11:09am nystatin [id number] unt/ml oral suspension (12 sources) Polyene Antifungal Start: 12-01-2022 End: 08-07-2023 nystatin (Mycostatin) [id number] UNIT/ML suspension Start: 12-01-2022 End: 12-15-2022 nystatin [...] (or expectorate) 4 times daily until gone. omeprazole 40 mg delayed release oral capsule (20 sources) Proton Pump Inhibitor Start: 03-10-20 End: 01-14-20 take 2 capsules by mouth once daily before breakfast omeprazole (PRILOSEC) 20 mg capsule Take 2 capsules by mouth daily before breakfast. 1/2 hr before meal. 60 capsule 03/10/2023 01/13/2025 Discontinued Start: 06-25-2018 End: 07-26-2024 take 1 capsule by mouth once daily Omeprazole 40 mg capsule,delayed release(DR/EC) Discontinued 40 mg PO DAILY 90 February 09, 2024 12:07pm July 26, 2024 3:28pm stomach Start: 12-03-2013 take 1 capsule by [facility] once daily before breakfast omeprazole (PRILOSEC) 20 [...] Comment on above: Take 1 capsule by [facility] daily before breakfast. 1/2 hr before meal. 24 hr oxybutynin chloride 10 mg extended release oral tablet (20 sources) Cholinergic Muscarinic Antagonist Start: 3 End: 4 take 1 tablet by mouth once daily Oxybutynin Chloride 10 mg tablet extended release 24hr Discontinued 10 mg PO DAILY November 28, 2022 12:00am March 12, 2023 9:51am perflutren protein A microsphere (Optison) 3 mL in sodium chloride (PF) 0.9 % 10 mL IV (4 sources) Start: 5 End: 5 Start: 11-25-2024 End: 11-25-2024 0-10 mL, IntraVENous, IMG on ce PRN, other, Starting on Samia 11/25/24 at 1450, For 1 dose, CV Procedural Medications, Draw entire 3 mL vial of perflutren protein A microspheres into a syringe along with 7 ml of NS from a vial to a total volume of 10 mL. polyethylene glycol 3350 89277 mg powder for oral solution (16 sources) Osmotic Laxative Start: 11-25-2024 End: 11-30-2024 take 17 g by mouth every twenty-four hours as needed for constipation Start: 03-12-2023 End: 04-02-2023 Polyethylene Glycol 3350 (Cl earlax) 17 gram/dose powder Discontinued 4 g PO DAILY March 12, 2023 12:00am April 02, 2023 9:30am Start: 04-06-2020 17 g, Oral, DA FREAD PRN, Constipation, Starting Samia 04/06/20 at 1615 First line therapy for constipation Start: 12-13-2019 polyethylene g lycol (GLYCOLAX) packet 17 g Start: 10-20-2019 17 g, Oral, DA FREDA PRN, Constipation, Starting Fri10/20/19 at 2229 First line therapy for constipation potassium phosphate 155 mg / sodium phosphate, dibasic 852 mg / sodium phosphate, monobasic 130 mg oral tablet (2 sources) Start: 11-28-2024 End: 11-28-2024 1 tablet (250 mg), Oral, Onc e, On 11/28/24 at 1600, For 1 dose, [...] Start: 12-02-2013 take 4 tablets by mo [facility] once daily at mealtime predniSONE 10 mg tablet Take 40 mg po daily with food. 0 12/02/2013 Active Comment on above: Take 40 mg po daily with food. Take 1 tablet by wolfgang th twice daily. pregabalin 25 mg oral capsule (20 sources) Start: 3 End: 5 take 1 capsule by mouth twice daily Pregabalin 25 mg capsule Discontinued 25 mg PO TWICE A DAY 60 0 November 15, 2024 4:53pm December 07, 2024 10:25am Chronic neuropathic pain Neuralgia and neuritis, unspecified Other chronic pain QUEtiapine 25 mg oral tablet (8 sources) Atypical Antipsychotic Start: End: take 12.5 mg by mouth twice daily as needed 12.5 mg, Oral, 2 times daily PRN, agitation, first line for agitation,[place] PRN Seroquel for ONLY if danger to self/others/treatmen t, Starting on 11/29/24 at 1242 Start: 11-27-2024 End: 11-30-2024 take [...] IVPB salicylic acid 30 mg/ml topical cream (16 sources) Start: 09-09-2023 End: 09-09-2023 Salicylic Acid 3 % cream Discontinued 1 NMA TOPICAL DAILY 21 0 September 09, 2023 12:00am September 09, 2023 2:29pm Start: 09-09-2023 End: 10-15-2024 Salicylic Acid 6 % cream Dis continued 1 NMA TOPICAL AT BEDTIME 454 0 September 09, 2023 12:00am October 15, 2024 1:14pm hydrate skin for >=5 mins before use; occlude area overnight; wash off in morning Start: 09-09-2023 Salicylic Acid Active 1 APPLIC TOPICAL AT BEDTIME 454 September 09, 2023 12:00am hydrate skin for >=5 mins before use; occlude area overnight; wash off in morning Sennosides (Senna) 8.6 mg tablet (8 sources) Start: 03-12-2023 End: 04-02-2023 take 2 [...] Start: 03-12-2023 take 2 tablets by mo [facility] twice daily Sennosides (Senna) 8.6 mg tablet Active 17.2 MG PO TWICE A DAY March 12, 2023 12:00am sodium bicarbonate 650 mg or al tablet (20 sources) Start: 12-11-2019 End: 08-29-2022 Sodium Bicarbonate 650 mg ta blet Discontinued 1 {tbl} PO THREE TIMES A DAY December 11, 2019 12:00am August 29, 2022 9:57am supplement & stomach Start: 12-11-2019 End: 08-29-2022 take 1 tablet by mouth three times daily Sodium Bicarbonate Discontinued 1 TABLET PO THREE TIMES A DAY December 11, 2019 12:00am August 29, 2022 9:57am Start: 10-23-2019 take 1 tablet by wolfgang th twice daily sodium bicarbonate 650 MG tablet Take 1 tablet by mouth 2 times daily 30 tablet 0 10/25/2019 Active 50 ml sodium chloride 9 mg/ml injection (20 sources) Start: 11-25-2024 End: 11-27-2024 take 50 mL intravenously every hour 50 mL/hr, IntraVENous, Continuous, Starting on Samia 11/25/24 at 0630 Start: 11-25-2024 End: 11-30-2024 take [...] (2 times per day), First dose on 10/20/19 at 2300 Start: 10-20-2019 take 10 mL intraveno us route once as needed 10 mL, Intravenous, PRN, Line Care, After every IV line use, Starting 10/20/19 at 2229 sodium phosphates 10 mmol in [...] 04, 2020 12:00am August 29, 2022 9:57am infection Start: 09-04-2020 take 1 tablet by wolfgang [...] (BACTRIM;SEPTRA) 400-80 MG per tablet 1 tablet traZODone hydrochloride 50 mg oral tablet (1 source) Serotonin Reuptake Inhibitor End: 08-07-2023 traZODone (Desyrel) 50 MG tablet Every 24 hours. 0 08/07/2023 Discontinued zolpidem tartrate 5 mg oral tablet (1 source) gamma-Aminobutyr ic Acid-ergic Agonist Start: 12-02-2013 take 1 tablet by mouth every twenty-four hours as needed zolpidem (AMBIEN) 5 mg tablet Take 1 tablet by mouth at bedtime as needed for Sedation. 0 12/02/2013 Active Comment on above: Take 1 tablet by wolfgang th at bedtime as needed for Sedation. Problems Active Problems Problem Classification Problem Date Documented Date Episodic/Chronic Abdominal pain (20 sources) Abdominal pain; Translations: [Unspecified abdominal pain] Onset: 3 02-25-2023 Episodic Acute and unspecified renal failure (10 sources) [id number] renal failure; Translations: [Acute worsening of stage 4 chronic kidney disease (HCC)] Onset: 6 10-20-2019 Chronic Administrative/social admission (6 sources) Counseling procedure with explicit context; Translations: [Persons encountering health services in other specified circumstances] Onset: 5 07-29-2018 Episodic Allergic reactions (11 sources) Allergic condition; Translations: [Allergy, unspecified, initial encounter] Onset: 3 08-07-2023 Episodic Chronic kidney disease (20 sources) Chronic kidney disease stage 3; Translations: [Chronic kidney disease] Onset: 6 07-29-2018 Chronic Comment on above: Began tx 08/02/22 Chronic obstructive pulmonary disease and bronchiectasis (20 sources) Bronchitis; Translations: [Bronchitis, not specified as acute or chronic] Onset: 3 02-12-2022 Episodic Coagulation and hemorrhagic disorders (5 sources) Blood coagulation disorder; Translations: [Coagulation defect, unspecified] Onset: 3 08-07-2023 Chronic Congestive heart failure; nonhypertensive (20 sources) Congestive heart failure, unspecified; Translations: [Heart failure] Onset: 1 Resolved: 0 07-29-2018 Chronic Comment on above: 65% per echo 11/29/[address] Driscoll @ [facility]; 46% per echo 04/03/14 @ [facility].65% per stress echo 10/10/18. Diabetes mellitus with complications (20 sources) Type 2 diabetes mellitus with diabetic chronic kidney disease; Translations: [Type 2 diabetes mellitus in obese] Onset: 9 Resolved: 9 08-12-2018 Chronic Diabetes mellitus without complication (3 sources) Diabetes mellitus without complication Disorders of lipid metabolism (2 sources) Hyperlipidemia; Translations: [Hyperlipidemia, unspecified] Onset: 5 01-14-2025 Chronic Diverticulosis and diverticulitis (20 sources) Diverticulosis of [...] pt to work on wt los s Fever of unknown origin (20 sources) Fever; Translations: [Fever, unspecified] Onset: 3 02-17-2021 Episodic Fluid and electrolyte disorders (20 sources) Hyperkalemia; Translations: [Hyperkalemia] Onset: 2 Episodic Genitourinary symptoms and ill-defined conditions (12 sources) [...] stage renal disease] Onset: 1 03-01-2022 Chronic Immunizations and screening for infectious disease (1 source) Encounter for immunization; Translations: [Encounter for immunization] Onset: 5 Episodic Miscellaneous mental health disorders (20 sources) Psychophysiologic insomnia; Translations: [Insomnia, unspecified] Onset: 4 04-02-2023 Chronic Mycoses (1 source) Candidiasis of mouth; Translations: [Candidal stomatitis] 12-01-2022 Episodic Neoplasms of unspecified nature or uncertain behavior (5 sources) Neoplasm of unspecified behavior of bone, soft tissue, and skin; Translations: [Neoplasm of unspecified nature of bone, soft tissue, and skin] 01-14-2023 Episodic Nonmalignant breast conditions (7 sources) Breast lump; Translations: [Unspecified lump in unspecified breast] 01-15-2024 Episodic Nonspecific chest pain (20 sources) Chest pain; Translations: [Chest pain, unspecified] Onset: 0 12-13-2019 Episodic Nutritional deficiencies (20 sources) Vitamin D deficiency; Translations: [Vitamin D deficiency, unspecified] Onset: 6 11-29-2015 Chronic Open wounds of head; neck; and trunk (1 source) Tear of skin; Translations: [Full-term infant] 09-09-2023 Episodic Osteoporosis (20 sources) Age-related osteoporosis without current pathological fracture; Translations: [Osteoporosis] Onset: 6 10-09-2015 Chronic Other aftercare (11 sources) Wound finding; Translations: [Encounter for other specified aftercare] 03-17-2023 Episodic Other aftercare (1 source) Other alf (current) drug therapy; Translations: [Other alf (current) drug therapy] Onset: 5 Episodic Other aftercare (4 sources) Post-discharge follow-up; Translations: [Encounter for follow-up examination after completed treatment for conditions other than malignant neoplasm] 12-07-2024 Episodic Other bone disease and musculoskeletal deformities (20 sources) Avascular necrosis of bone of hip; Translations: [Idiopathic aseptic necrosis of unspecified femur] Onset: 6 07-09-2019 Chronic Other bone disease and musculoskeletal deformities (2 sources) Other specified disorders of bone density and structure, unspecified site; Translations: [Oth disrd of bone density and structure, unspecified site] Onset: 8 Episodic Other circulatory disease (18 sources) Arteriovenous fistula; Translations: [Arteriovenous fistula, acquired] Onset: 2 03-01-2022 Chronic Other circulatory disease (19 sources) Low blood pressure; Translations: [Hypotension, unspecified] 02-26-2019 Episodic Other connective tissue disease (1 source) History of total replacement of right hip joint; Translations: [Presence of right artificial hip joint] 08-07-2023 Chronic Other connective tissue disease (20 sources) Chronic neuropathic pain; Translations: [Neuralgia and neuritis, unspecified] Onset: 3 06-03-2022 Episodic Other connective tissue disease (1 [...] the nervous system] Onset: 5 Episodic Other connective tissue disease (1 source) Myalgia, unspecified site; Translations: [Myalgia] Onset: 5 Episodic Other diseases of kidney [...] loss, bilateral] Onset: 4 08-07-2023 Chronic Other ear and sense organ disorders (3 sources) Bilateral hearing loss; Translations: [Unspecified hearing loss, bilateral] 01-14-2025 Chronic Other ear and sense organ disorders (1 source) Unspecified hearing loss, bilateral; Translations: [Bilateral hearing loss, unspecified hearing loss type] Onset: 5 Chronic Other gastrointestinal disorders (20 sources) Heartburn; Translations: [Heartburn] Onset: 3 12-02-2022 Episodic Other hereditary and degenerative nervous system conditions (20 sources) Restless legs; Translations: [Restless legs syndrome] Onset: 3 05-30-2022 Chronic Other hereditary and degenerative nervous system conditions (5 sources) Restless legs syndrome; Translations: [Restless legs syndrome (RLS)] Onset: 5 04-02-2023 Chronic Other lower respiratory disease (20 sources) Dyspnea; Translations: [Shortness of breath] Resolved: 9 07-29-2018 Episodic Comment on above: due to thick mucous -- so will resume and see if hleps hwile doing w/u Other lower respiratory disease (1 source) Cough; Translations: [Cough in adult] 05-04-2024 Episodic Other male genital disorders (15 sources) H/O: male genital disorder; Translations: [Personal history of other diseases of male genital organs] 11-09-2022 Episodic Other male genital disorders (2 sources) Phimosis; Translations: [Phimosis] 02-23-2025 Episodic Other male genital disorders (1 source) Phimosis; Translations: [Phimosis] Onset: 5 Episodic Other male genital disorders (1 source) Disorder of male genital organs, unspecified; Translations: [Disorder of male genital organs, unspecified] Onset: 5 Episodic Other nervous system disorders (20 sources) [...] Onset: 5 Chronic Other nervous system disorders (4 sources) Polyneuropathy, unspecified; Translations: [Peripheral polyneuropathy] Onset: 3 Chronic Other nervous system disorders (5 sources) Polyneuropathy; Translations: [Polyneuropathy, unspecified] Onset: 3 03-10-2023 Chronic Other nervous system disorders (2 sources) Other chronic pain; Translations: [Chronic midline low back pain without sciatica] Onset: 5 Chronic Other nervous system disorders (1 source) Tremor, unspecified; Translations: [Abnormal involuntary movements] 06-09-2023 Episodic Other nervous system disorders (7 sources) Finding of hand region; Translations: [Tremor, unspecified] 12-11-2023 Episodic Other nervous system disorders (4 sources) Impaired cognition; Translations: [Other symptoms and signs involving cognitive functions and awareness] 11-30-2024 Episodic Other nervous system disorders (2 sources) Other symptoms and signs involving cognitive functions and awareness; Translations: [Other symptoms and signs involving cognitive functions and awareness] Onset: 5 Episodic Other non-traumatic joint disorders (20 sources) Joint pain; Translations: [Pain in unspecified joint] Onset: 3 12-07-2018 Episodic Other non-traumatic joint disorders (5 sources) [...] Onset: 9 Resolved: 9 10-21-2019 Chronic Other nutritional; endocrine; and metabolic disorders (5 sources) Obese class I; Translations: [Obesity, Class I, BMI 30-34.9] Onset: 3 03-10-2023 Chronic Other skin disorders (6 sources) Actinic keratosis; Translations: [Actinic keratosis] 06-03-2022 Episodic Other skin disorders (1 source) Disorder of the skin and subcutaneous tissue, unspecified; Translations: [Unspecified disorder of skin and subcutaneous tissue] 09-09-2023 Episodic Other skin disorders (5 sources) Eruption; Translations: [Rash and other nonspecific skin eruption] 10-15-2024 Episodic Other upper respiratory disease (5 sources) Allergic rhinitis; Translations: [Allergic rhinitis, unspecified] Onset: 4 08-07-2023 Chronic Other upper respiratory infections (18 sources) Chronic ethmoidal sinusitis; Translations: [Chronic ethmoidal sinusitis] Onset: 5 Resolved: 8 07-30-2017 Chronic Other upper respiratory infections (20 sources) Viral upper respiratory tract infection; Translations: [Acute upper respiratory infection, unspecified] Onset: 3 02-12-2022 Episodic Otitis media and related conditions (1 source) Chronic serous otitis media, left ear; Translations: [Left chronic serous otitis media] Onset: 5 Chronic Pancreatic disorders (not diabetes) (1 source) Disease of pancreas, unspecified; Translations: [Pancreatic lesion (HCC)] Onset: 5 Episodic Peripheral and visceral atherosclerosis (20 sources) Intermittent claudication; Translations: [Peripheral vascular disease, unspecified] Onset: 3 12-06-2018 Chronic Peritonitis and intestinal abscess (20 sources) Acute peritonitis; Translations: [Generalized (acute) peritonitis] Onset: 3 02-27-2023 Episodic Residual codes; unclassified (20 sources) Obstructive sleep apnea syndrome; Translations: [Obstructive sleep apnea (adult) (pediatric)] Onset: 0 10-20-2019 Chronic Residual codes; unclassified (3 sources) Obstructive sleep apnea (adult) (pediatric); Translations: [Obstructive sleep apnea (adult)(pediatric)] Onset: 5 06-03-2022 Chronic Residual codes; unclassified (20 sources) Family history [...] unspecified; Translations: [Altered mental status, unspecified] Onset: 5 Episodic Residual codes; unclassified (4 sources) Chronic back pain ; Translations: [Chronic back pain] Episodic Residual codes; unclassified (4 sources) Delirium; Translations: [Disorientation, unspecified] 12-07-2024 Episodic Residual codes; unclassified (1 source) Chronic disease - general; Translations: [Illness, unspecified] 01-13-2025 Episodic Residual codes; unclassified (1 source) Illness, unspecified; Translations: [Chronic illness] Onset: 5 Episodic Screening and history of mental health and substance abuse codes (20 sources) Tobacco use and exposure - finding; Translations: [Personal history of nicotine dependence] Onset: 5 06-03-2022 Episodic Sexually transmitted infections (not HIV or hepatitis) (1 source) Early congenital syphilitic osteochondropathy; Translations: [Early congenital syphilitic osteochondropathy] Onset: 5 Episodic Spondylosis; intervertebral disc disorders; other back problems (20 sources) Backache; Translations: [Dorsalgia, unspecified] Onset: 7 Resolved: 7 03-10-2017 Episodic Syncope (5 sources) Near syncope; Translations: [Syncope and collapse] Onset: 5 12-16-2024 Episodic Systemic lupus erythematosus and connective tissue [...] (3 sources) BMI 36.0-36.9,adult Unclassified (1 source) Chronic neuropathic pain Unclassified (4 sources) M79.2 - Neuralgia and neuritis, unspecified,G89.29 - Other chronic pain,M54.50 - Low back pain, unspecified Unclassified (1 source) Chronic disease - general 01-14-2025 Unclassified (1 source) Chronic midline low back pain without sciatica; Translations: [Chronic midline low back pain without sciatica] Onset: 5 Unclassified (1 source) Low back pain, unspecified; Translations: [Low back pain, unspecified] Onset: 5 Unclassified (1 source) Cough, unspecified; Translations: [Cough, unspecified] Onset: 5 Urinary tract infections (7 sources) Urinary tract infectious disease; Translations: [Urinary tract infection, site not specified] Onset: 5 01-05-2025 Episodic Viral infection (20 sources) Disease caused by 2019-nCoV; Translations: [COVID-19] Onset: 2 Episodic Past or Other Problems Problem Classification Problem Date Documented Da te Episodic/Chronic Abdominal hernia (20 sources) Hernia of abdominal cavity; Translations: [Left inguinal hernia ] Onset: 3 07-09-2019 Episodic Bacterial infection; unspecified site (5 sources) Infection due to resistant bacteria; Translations: [Other bacterial infections of unspecified site] Onset: 3 03-10-2023 Episodic Complication of device; implant or graft (13 sources) Pain due to hip joint prosthesis; [...] complication] Onset: 7 Resolved: 1 07-29-2018 Chronic Diabetes mellitus without complication (20 sources) Prediabetes; Translations: [Prediabetes] Onset: 3 12-06-2018 Episodic Esophageal disorders (12 sources) Disorder of esophagus; Translations: [Other specified diseases of esophagus] Resolved: 8 11-17-2017 Episodic Genitourinary congenital anomalies (4 sources) H/O: [...] and colitis, unspecified] Onset: 3 08-07-2023 Episodic Other aftercare (1 source) Anticoagulant effect; Translations: [care home (current) use of anticoagulants] Resolved: 6 03-04-2016 Episodic Other aftercare (4 sources) Encounter for follow-up examination after completed treatment for conditions other than malignant neoplasm; Translations: [Other follow-up examination] Onset: 5 03-12-2023 Episodic Other and unspecified benign neoplasm (12 [...] 7 12-16-2016 Episodic Other connective tissue disease (18 sources) Neuralgia and neuritis, unspecified; Translations: [Neuralgia, neuritis, and radiculitis, unspecified] Onset: 5 06-03-2022 Episodic Other connective tissue disease (5 [...] both normal per patient-- DR Brian in [facility] did scope--if no better try XIfaxin Other gastrointestinal disorders (12 sources) Gastrointestinal symptom; Translations: [Other specified symptoms and signs involving the digestive system and abdomen] Resolved: 8 11-17-2017 Episodic Other gastrointestinal disorders (12 sources) H/O: gastrointestinal disease; Translations: [Personal history of other specified conditions] Resolved: 8 11-17-2017 Episodic Other gastrointestinal disorders (14 sources) Heartburn; Translations: [Heartburn] Onset: 5 06-03-2022 Episodic Other injuries and conditions due to external causes (6 sources) Motion sickness; Translations: [Motion sickness, initial encounter] Onset: 3 12-24-2022 Episodic Other nervous system disorders (5 sources) Tremor; Translations: [Tremor, unspecified] Onset: 4 08-07-2023 Episodic Other non-traumatic joint disorders (15 sources) [...] 3 07-29-2018 Episodic Comment on above: h/o wegners -- s/p b alloon by Dr Orozco- [...] and nasal sinuses] Onset: 4 08-07-2023 Episodic Residual codes; unclassified (7 sources) H/O: Disorder; Translations: [Personal history of other diseases of the musculoskeletal system and connective tissue] Onset: 3 07-29-2018 Episodic Residual codes; unclassified (12 sources) Past history of procedure; Translations: [Other specified postprocedural states] Onset: 6 Resolved: 6 01-30-2016 Episodic Residual codes; unclassified (12 sources) Family history of malignant neoplasm of gastrointestinal tract; Translations: [Family history of malignant neoplasm of digestive organs] Resolved: 9 06-25-2018 Episodic Residual codes; unclassified (18 sources) Family history of prostate cancer; Translations: [Family history of malignant neoplasm of prostate] Onset: 3 Resolved: 9 06-25-2018 Episodic Residual codes; unclassified (1 source) Patient care statuses; Translations: [Other specified health status] Onset: 6 Resolved: 7 03-10-2017 Episodic Residual codes; unclassified (19 sources) History of cardiac catheterization; Translations: [Other specified postprocedural states] Onset: 9 02-12-2022 Episodic Comment on above: Normal coronary sosa carly; Normal LV size, wall motion,and systolic function; Normal Left Ventricular systolic function; LVEF: by LV gram 60 %; Normal Left Ventricular End Diastolic Pressure Residual codes; unclassified (5 sources) Pain; Translations: [Pain, unspecified] Onset: 3 08-07-2023 Episodic Residual codes; unclassified (1 source) Disorientation, unspecified; Translations: [Disorientation, unspecified] Onset: 5 Episodic Unclassified (2 sources) Non-smoker; Translations: [Non-smoker] 08-12-2018 Unclassified (1 source) Unclassified (11 sources) Anticoagulant effect; Translations: [Anticoagulated on Coumadin] Resolved: 6 03-04-2016 Unclassified (11 sources) History of repair of hip joint; Translations: [Status post right hip replacement] Onset: 6 Resolved: 0 07-09-2019 Unclassified (11 sources) Patient care statuses; Translations: [Health assisted, active care coordination] Onset: 6 Resolved: 7 03-10-2017 Unclassified (1 source) Patient encounter status 01-14-2025 Results Test Name Value Interpretation Reference Range Facility AV Fistula/Dialysis Graft Sc anon 03-14-2025 AV Fistula/Dialysis Graft Scan [facility] [address] [place] [address] AV Fistula/Dialysis Graft Scan 03/14/25 1303 MR#: [id number] Acct: [id number] Name: FRANKLIN BURTON Rep #: [id number] : 1945 79 From: Jesus Milligan MD Attending Dr: JULIUS Regalado Status: REG CLI Ordering Dr: Kerri Mccormack Date: 03/14/25 Location: CVS Sex: M C Admitted: Reason For Study Reason For Study: Lt AVF Evaluation LEFT Inflow - 179.7/95.7 cm/s Inflow - 3835 ml/min Anastomosis - 668.8/406.4 cm/s Anastomosis - 3994 ml/min Prox AVF - 242.3/127.9 cm/s Prox AVF - 41242 ml/min Mid AVF - 276.9/119.6 cm/s Mid AVF - 97325 ml/min Dist AVF - 209.4/106.1 cm/s Dist AVF - 86358 ml/min Outflow - 100.1/58.4 cm/s Outflow - 2098 ml/min. VL/AV Fistula/Dialysis Graft Scan Interpretation Summary Left upper extremity fistula with adequate flow volume, no evidence of stenosis. Aneurysmal throughout. Ordering Physician: Kerri Mccormack Referring Physician: Kyler Garcia Performed By: Cholo Fishman RVT and Student 03/15/25732 Date Jesus Milligan MD CC: JULIUS Regalado; Kyler Garcia MD Date Dictated: 03/14/25 1303 Date Transcribed: 03/15/25732 Supervisor [employer] Room: Signed [facility] MR/BMS.BVSon 03-03-2025 MR/BMS.BVS [facility] Vascular Surgery [address] [place] [address] OFFICE VISIT Date of Service: 03/04/25 MR#: [id number] Acct: [id number] Name: FRANKLIN BURTON Rep #: [id number] : 1945 Provider: JULIUS Regalado Age/Sex: 79/M Location: [facility] Status: Signed Intake Vital Signs 02/23/25 11:31 03/04/25 14:40 Height 5 ft 8 in Weight: 222 lb BP 117/68 Blood Pressure Location Rt brachial Position Sitting Respiration 16 Pulse 73 Pulse Source Monitor Temp 98.4 F Temp Source Temporal Pulse Oximetry (%) 97 Oxygen Delivery Method room air Intake Visit Reasons: CONSULT FOR FISTULAGRAM Is patient in pain?: No Allergies finasteride Allergy (Intermediate, Verified 03/04/25 14:41) mastodynia aspirin Adverse Reaction (Severe, Verified 03/04/25 14:41) cannot take d/t Zach's Vasculitis Medications ???Medication ???Instructions ???Recorded ???Confirmed ???Type handicap placard #1 ea 08/29/22 03/04/25 Rx handicap placard #1 ea 03/12/23 03/04/25 Rx triamcinolone acetonide 0.1 % 1 applic topical DAILY PRN 4 03/04/25 Rx topical ointment rash/itching #15 grams mirtazapine 15 mg tablet 15 mg PO QHS #90 tabs 06/08/24 Rx omeprazole 40 mg capsule,delayed 40 mg PO DAILY stomach #90 caps 03/04/25 Rx release metoprolol tartrate 25 mg tablet 25 mg PO DAILY BP #90 tabs 5 03/04/25 Rx melatonin 3 mg capsule 3 mg PO HS PRN sleep #30 caps 09/1703/04/25 Rx magna life 1 dose topical QHS PRN 10/15/24 History gabapentin 100 mg capsule 300 mg PO QHS 12/07/24 03/04/25 Hi story ropinirole 0.25 mg tablet 0.25 mg PO QHS #30 tabs 01/11/25 1 Rx tamsulosin 0.4 mg capsule 0.8 mg (2 x 0.4 mg) PO QDAY #60 03/04/25 Rx caps cephalexin 500 mg capsule 500 mg PO TID #12 caps 02/23/25 Rx neomycin-bacitracn Zn-polymyx 3.5 1 applic topical TID #28.3 grams 02/23/25 03/04/25 Rx mg-400 unit-5,000 unit/gram top oint (Neosporin (jur-rna-simdx)) oxycodone 5 mg tablet 5 mg PO Q6H PRN pain 7 days #10 03/04/25 Rx tabs oxycodone-acetaminophe n 5 mg-325 1 tab PO Q6H PRN PRN severe pain 1 03/04/25 History mg tablet Have you fallen in the past year?: Yes [facility] Medical History Uses wheelchair Walker as ambulation aid Ambulates with cane Shortness of breath on exertion Dialysis patient Wears hearing aid Wears dentures Arthritis Prostate disease Anemia History of renal [...] Chest pain Abnormal stress echo Surgical History (Updated 03/04/25 @ 15:07 by JULIUS Regalado) Hx of bilateral cataract extraction S/P TURP [...] house 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 He has had this L upper arm fistula for about 3 years, started dialysis about 2 year ago. He reports that at dialysis a week or so ago, his fistula infiltrated so he developed bruising and swellin (more content not included)... Normal [facility] Discharge Instructionon 10-0 Discharge Instruction [facility] Medical Records Department [address] [place] [address] Instructions for Home/Discharge Instructions 02/23/25 1245 MR#: [id number] Acct: [id number] Name: FRANKLIN BURTON Rep #: [id number] : 1945 79 From: Kael Decker MD PCP: Kyler Garcia MD Status:REG SDC Discharge Instructions DC O2, CPAP, BIPAP needs Home O2 Discharge instructions: No Dressing / Incision Discharge Activity: Return to Normal Activity and May Not Drive (while taking narcotic pain medications.) Dressing / Incision Call your doctor if you observe: Fever of 101 or Higher Follow Up Care Please Follow Up With: Kael Decker MD When: Call [phone] for an appointment Test Results: Test results from this visit will be discussed in further detail at your follow-up appointment, if applicable. Discharge Plan Admission Primary Reason for Your Visit: circumcision Attending Provider: Kael Decker Primary Care Provider: Kyler Garcia Instructions Print Language: Ukrainian Discharge Orders/Prescriptions Prescriptions: New cephalexin 500 mg capsule 500 mg PO TID Qty: 12 0RF Neosporin (gdj-jxq-onrtx) 3.5mg-400 unit- 5,000 unit/gram ointment 1 applic topical TID Qty: 28.3 0RF Rx Instructions: apply to circumcision oxycodone 5 mg tablet 5 mg PO Q6H PRN (Reason: pain) 7 Days Qty: 10 0RF Continued (DME) handicap placard See Rx Instructions .ROUTE .MEDSUPPLY Qty: 1 0RF Rx Instructions: Length of time: 5 years Diagnosis: Impaired physical mobility z74.09 (DME) handicap placard See Rx Instructions .ROUTE .MEDSUPPLY Qty: 1 0RF Rx Instructions: Length of time: 5 years Diagnosis: Impaired physical mobility z74.09 triamcinolone acetonide 0.1 % ointment 1 applic topical DAILY PRN (Reason: rash/itching) Qty: 15 0RF mirtazapine 15 mg tablet 15 mg PO QHS Qty: 90 1RF gabapentin 100 mg capsule 300 mg PO QHS magna life 1 dose topical QHS PRN Rx Instructions: magna life cream topically to bilateral feet every evening oxycodone-acetaminophe n 5-325 mg tablet 1 tab PO Q6H PRN PRN (Reason: severe pain) omeprazole 40 mg capsule,delayed release(DR/EC) 40 mg PO DAILY Qty: 90 1RF metoprolol tartrate 25 mg tablet 25 mg PO DAILY Qty: 90 1RF melatonin 3 mg capsule 3 mg PO HS PRN (Reason: sleep) Qty: 30 0RF ropinirole 0.25 mg tablet 0.25 mg PO QHS Qty: 30 2RF tamsulosin 0.4 mg capsule 0.8 mg PO QDAY Qty: 60 1RF Referrals / Follow Up: Kael Decker MD [Med Staff - Active Staff, Urology] Kyler Garcia MD [Primary Care Provider, Family Practice] Disposition Disposition (needs filled in before D/C Order can be placed): Home, Self Care 02/23/25 1245 Kael Decker MD CC: Kyler Garcia MD Signed [facility] MR/POSTOP.ANE 02-23-2025 MR/POSTOP.[facility] Medical Records Department [address] [place] [address] Anesthesia Postop Eval I 02/23/25 1327 MR#: [id number] Acct: [id number] Name: FRANKLIN BURTON Rep #: [id number] : 1945 79 From: Evan Groves CRNA PCP: Kyler Garcia MD Status:REG [facility] Y Race: C Location: [place] [address] Anesthesia: Postop Eval I Current Vital Signs Temperature: 98.1 F Pulse Rate: 80 Blood Pressure: 127/72 Respiratory Rate: 16 Pulse Ox: 98 Assessment Airway patent: Yes Spontaneous unlabored respirations: Yes nausea: No Vomiting: No Anesthesia Complication: No Fluid Hydration Crystalloid volume administer (ml): 300 Total IV fluid infused: 300 Progress Note Anesthesia document: Postop Eval 1 completed: Yes 02/23/25 1328 Date Evan Groves EMERGENCY CREW SUPERVISOR Cosigner Signature: Date CC: Signed [facility] MR/KRJJMIAH3fd 02-23-2025 MR/POSTOPAN2 [facility] Medical Records Department [address] [place] [address] Anesthesia Postop Eval II 02/23/25 1514 MR#: [id number] Acct: [id number] Name: FRANKLIN BURTON Rep #: [id number] : 1945 79 From: Rasheed Troncoso MD PCP: Kyler Garcia MD Status:DEP [facility] Y Race: C Location: [facility] Anesthesia Postop Eval I Sum Postop Eval Completion status Anesthesia document: Postop Eval 1 completed: Yes Anesthesia Postop Eval I Summary Anesthesia Postop Eval I Summary: Anesthesia Postop Eval I: Assessment Summary Airway patent Yes 02/23/25 13:27 EMERGENCY CREW SUPERVISOR.SHOF Spontaneous unlabored Yes 02/23/25 13:27 EMERGENCY CREW SUPERVISOR.SHOF respirations Mental status nausea No 02/23/25 13:27 EMERGENCY CREW SUPERVISOR.SHOF Vomiting No 02/23/25 13:27 EMERGENCY CREW SUPERVISOR.SHOF Anesthesia Postop Eval I: Fluid Summary Crystalloid volume administer 300 02/23/25 13:27 EMERGENCY CREW SUPERVISOR.SHOF (ml) Colloids volume administered ( ml) Blood Product volume administered (ml) Total IV fluid infused 300 02/23/25 13:27 EMERGENCY CREW SUPERVISOR.SHOF Anesthesia Postop Eval I: Summary Notes Anesthesia Complication No 02/23/25 13:27 EMERGENCY CREW SUPERVISOR.SHOF Anesthesia Complication Comment: Post-operative progress note Anesthesia: Postop Eval II Evaluation Mental status: Awake and Calm Pain Level: 1 nausea: No Vomiting: No Complications Anesthesia Complication: No 02/23/25 1515 Date Rasheed Troncoso MD Cosigner Signature: Date CC: Signed Normal [facility] Operative Reporton 5 Operative Report [facility] Medical Records Department [address] [place] [address] Operative Report 02/23/25 1245 MR#: [id number] Acct: [id number] Name: FRANKLIN BURTON Jin Rep #: [id number] : 1945 79 From: Kael Decker MD PCP: Kyler Garcia MD Status:REG [facility] Location: [place] [address] Operative Report (Standard) Operative Information Date of Procedure: 02/23/25 Pre-Operative Diagnosis: Phimosis Post-Operative Diagnosis: The same Surgery/Procedure Performed: Circumcision airplane inspector: No Type of Anesthesia: General RN Documented Start/Stop Times: Operation Date: 02/23/25 12:35 Case Time Into Pre-Op 02/23/25 11:10 Procedure Start Time: 12:20 Procedure Stop Time: 13:15 Select all DRAINS/GRAFTS/IMPLANTS that apply: None Estimated Blood Loss: 10 cc Specimen collected: No Description of surgery: Indications 79-year-old male with significant phimosis of the foreskin unable to retract it or clean the head of the penis explained to the patient that it may be difficult to clean the penis risk for cancer etc. also risk that if he ever needs a catheter is coming a possible put in so he agreed to proceed with a circumcision. Patient was taken back to the operating room after smooth duction of anesthesia the table penis and testicles were prepped and draped in shaven usual sterile fashion made a circumferential incision around the circumcision line use electrocautery to dissect the foreskin off the penis I then used interrupted 3-0 chromic sutures to do interrupted sutures all the way around to reattach the shaft skin to the subcoronal skin had to put extra stitches in 1 side there was bleeding but then this stopped dressings and pressure dressing was placed on the penis patient anesthetic was reversed plan to see him back in a few weeks for checkup Surgical Findings: Circumcision completed Complications Complications: No Admit VTE Documentation VTE Present on Admission: No VTE Mechan Device Prophylaxis: SCD's VTE Pharm Prophylaxis ordered?: No 02/23/25 1317 Cosigner Signature (if applicable): CC: Dr. aKel Decker MD; Kyler Garcia MD Signed Normal [facility] MR/PATDarcy 02-21-2025 MR/PAT.[facility] Medical Records Department [address] [place] [address] PAT - Anesthesia 02/21/25 1216 MR#: [id number] Acct: [id number] Name: FRANKLIN BURTON Rep #: [id number] : 1945 79 From: Alistair Goss MD PCP: Kyler Garcia MD Status:PRE [facility] Y Race: C Location: [facility] Pre-Assessment Diagnosis/Proposed Procedure Planned Operative Procedure(s): Circumcision Anesthesia History Anesthesia History - linoleum mechanic: Anesthesia History - linoleum mechanic Hx Hospitalization Yes: 11/2024 STROKE-LIKE 02/18/25 16:26 SYMPTOMS; R/T MEDS Any Problems With Anesthesia No 02/18/25 16:26 Cholinesterase deficiency No 02/18/25 16:26 You/Your Family Experience No 02/18/25 16:26 fever (hyperthermia) with Relationship Recent Exposure to Contagious No 06/25/22 08:32 Disease Does patient have nerve No 02/18/25 16:26 stimulator Patient instructed to have device shut off --Does patient have Pacemaker or ICD? When Was Last Pacemaker Check QUESTION #4 FULL TEXT: You/Your Family Experience fever (hyperthermia) with Anesthesia Last Oral Intake Last Oral intake: Last Oral Intake NPO since Meds taken in AM with sips of water? Meds patient instructed to take am of surgery PONV PONV - linoleum mechanic: PONV - linoleum mechanic Female No 02/18/25 16:26 HX of Motion Sickness No 02/18/25 16:26 HX of N/V After Surgery No 02/18/25 16:26 Non-Smoker Yes 02/18/25 16:26 Duration of Surgery greater Yes 02/18/25 16:26 than 60 minutes Number of Risk Factors 2 02/18/25 16:26 PONV Score Moderate Risk 02/18/25 16:26 Height Weight Height Weight: Anesthesia: Height Weight Height 5 ft 8 in 01/05/25 12:17 Respiratory Assessment Respiratory Assessment - linoleum mechanic: Respiratory Tract Infection Hx - linoleum mechanic Hx Respiratory Tract Infection No 02/18/25 16:26 STOP Sleep Apnea STOP Sleep Apnea - linoleum mechanic: STOP Sleep Apnea - linoleum mechanic Hx Hypertension Yes 02/18/25 16:26 Hx Sleep Apnea No 02/18/25 16:26 CPAP No 02/18/25 16:26 BIPAP No 02/18/25 16:26 Do you snore loudly (louder No 02/18/25 16:26 than talking or can be heard Do you often feel tired/ No 02/18/25 16:26 fatigued/ sleepy during daytime? Has anyone observed you stop No 02/18/25 16:26 breathing during sleep? STOP Results Negative 02/18/25 16:26 QUESTION #5 FULL TEXT : Do you snore loudly (louder than talking or can be heard through closed doors)? 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 Specify any problems Hx of Preganancy in last 3 N/A 02/18/25 16:26 Months Nurse Filling Out Transfusion ZAC 02/18/25 16:26 Questions: Date: 02/18/25 02/18/25 16:26 Time: 16:31 02/18/25 16:26 Patient unable to answer at this time (ie. confused, unrespo /Reproduction History /Reproductive History - linoleum mechanic: /Reproductive Hx- linoleum mechanic Hx Now Gestational Age (in weeks): EDC: Hx Hx Para Hx Section SAB [facility] Medical History (Updated 02/18/25 @ 16:41 by Salima Corral) Uses wheelchair Walker as ambulation aid Ambulates with cane Shortness of breath on exertion Dialysis patient Wears hearing aid Wears dentures Arthritis Prostate disease Anemia History of renal [...] (moderate) Claudication Prediabetes Essential hypertension History of t (more content not included)... Normal [facility] CNOVon 02-17-2025 [facility] Office Visit (FAMPWS ) JOSEPHINEFRANKLIN Abdi ([id number]) 1945 M Date Time Provider Department 02/17/25 11:20 AM [facility] visit today, we recorded the following information about you: Pulse Respiration Blood pressure Weight 56/minute 16/minute 122/66 101.2 kg Kyler Garcia MD 02/18/2025 8:18 PM Signed Family Medicine OUTPATIENT VISIT February 17, 2025 CC: Pancreatic lesion HPI: 79 year old male patient with a history of T2DM not on meds. Last A1c in normal range iso iHD Peripheral neuropathy on gabapetin 300 Insomnia on melatonin, mirtazapine- also using percocet as a sleeping aid though advised this is not purpose of this prescription HTN on metoprolol 25 BID HLD on atorvastatin 40 On plavix 75 For unclear reasons, denies hx of PAD, CAD, past OK, past strokes Hernia GERD on omprazole and simethicone Chronic pain on percocet ESRD on iHD MWF, follows at [facility] and sees check out cashier there. 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 Elevated PSA follows with urology Obesity Abnormal parathyroid level, managed by nephrology Encephalopathy, likely multifactorial with admission for this 12/10 and possibly 2/2 gabapentin and lyrica being taken not as prescribed since resolved Chronic debility Metabolic bone disease, last dexa 2017 osteopenia managed by nephro at dialysis On plavix for unclear reasons, patient has been requested to obtain records from prior PCP, cards, or current nephrology to determine why he is on this KATHY on 01/10 At that visit, discussed he should try to clarify with his outside system physicians why he is on plavix Endorsed symptoms anxiety depression but did not want to discuss. Asked if he could get information from check out cashier so we could disuss care. He was using Mcadoo for chronic back pain and as a sleeping aid. Consulted pall med for ESRD and medical fraily, not wanting to be listed for transplant. Bp was controlled. PSG ordered, hd given away his CPAP. Labs: LDL 30 A1c 5.6 PSA 8.2 Did not obtain echo Interval events: They declined pall med referral as they did not want to go to [facility]. Rheum visit 02/10, ordered CT sinus. Considering prednisone BP at home: 115/70 would be a typical number he states though did not bring a log today. Has been out of opiates for about two weeks. Prior to that he was using it BID. Did not send in refill request. Reports no withdrawal symptoms. Saw urology on Friday. They are doing a circumcision to address his prostate issues to allow them to place a catheter. He reportedly is not planning to do a prostate biopsy. Review of Systems PAIN ASSESSMENT: chronic generalized pain. GENERAL: No weight loss, or fevers HEENT: Negative for frequent or significant headaches RESPIRATORY: Negative for cough, wheezing, shortness of breath CARDIOVASCULAR: Negative for chest pain, palpitations, PND or orthopnea GI: No nausea, vomiting, or diarrhea or abdominal pain. No TX bleeding or melana : Does make urine. Health maintenance: Dilated Retinal Exam Never done Diabetic Foot Exam Never done Shingrix Vaccine(1 of 2) Never done Medicare Annual Wellness Visit Never done RSV Vaccine(1 - 1-dose 75+ series) Never done Hepatitis B Vaccine(8 of 8 - Risk Dialysis 4-dose series) due on 12/31/2023 Advance Directive Discussion Never done Covid-19 Vaccine( season) due on 01/17/2025 Allergies: ALLERGIES Allergen Reactions Aspirin Other: See Comments Kidney issues Seasonal Allergies Other: See Comments Sneezing, itchy and watery eyes Medications: clopidogrel (PLAVIX) 75 mg tablet Take 1 tablet by mouth once daily. iv contrast (will be provided with radiology test) MRI PANC/LC Inject, intravenously, once for 1 dose. No IV access, insert saline lock prior to the beginning of sedation, infusion, injection of imaging exam. Discontinue saline lock post exam. If Pt. has a central line or IVAD, may access for administration according to line specific nursing protocol. Once exam is complete flush line and de-access according to line specific nursing protocol in the MR contrast administration guidelines link. acetaminophen (TYLENOL) 500 mg tablet Take 1 tablet by mouth every 6 hours as needed for pain. atorvastatin (LIPITOR) 40 mg tablet Take 1 tablet by mouth every evening. benzocaine (AMERICAINE) 20 % oral spray Apply 1 application to affected area four times a day as needed. Capsaicin 0.1 % crea Apply to affected area two times a day. carboxymethylcellulose (REFRESH) 0.5 % drop Use 1 drop in both eyes as needed. finasteride (PROSCAR) 5 mg tablet Take 1 tablet by mouth once daily. gabapentin (NEURONTIN) 300 mg capsule Take 1 capsule by mouth daily at bedtime. melatonin (more content not included)... Normal [facility] 02-17-2025 [facility] Telephone ([facility]) FRANKLIN BURTON ([id number]) 1945 M Date Time Provider Department 02/17/25 KYLER GARCIA [facility] During your visit today, we recorded the following information about you: Letha Pretty LPN 02/17/2025 12:44 PM Signed [facility] pharmacist [facility] pharmacy calling asking if the Benzocaine 20% going to be used orally topically can he give patient Ambesol 20% to be used orally? They do not carry the spray. Please advise Jessica Barnett RN 02/21/2025 9:53 AM Signed [facility] Pharmacist with [facility] calls to check on status of request. Verbal order given as ok'd by Dr. Garcia: Alejandro Monae, that is alright thank you Jessica Barnett RN Allergies As of Date: 02/17/2025 Noted Allergy Reaction ASPIRIN 12/01/2022 14 - Other: See Comments Comments: Kidney issues SEASONAL ALLERGIES 09/17/2011 14 - Other: See Comments Comments: Sneezing, itchy and watery eyes Date Reviewed: 02/17/2025 Reviewed by: Daniel Staton LPN - Fully Assessed Reason for Visit: Medication Question [1478] Prescriptions as of 02/21/2025 - acetaminophen (TYLENOL) 500 mg tablet Take 1 tablet by mouth every 6 hours as needed for pain. - atorvastatin (LIPITOR) 40 mg tablet Take 1 tablet by mouth every evening. - benzocaine (AMERICAINE) 20 % oral spray Apply 1 application to affected area four times a day as needed. - Capsaicin 0.1 % crea Apply to affected area two times a day. - carboxymethylcellulose (REFRESH) 0.5 % drop Use 1 drop in both eyes as needed. - finasteride (PROSCAR) 5 mg tablet Take 1 tablet by mouth once daily. - gabapentin (NEURONTIN) 300 mg capsule Take 1 capsule by mouth daily at bedtime. - melatonin 5 mg tablet Take 1 tablet by mouth daily at bedtime. - metoprolol tartrate, short acting, (LOPRESSOR) 25 mg tablet Take 1 tablet by mouth once daily. - mirtazapine (REMERON) 15 mg tablet Take 1 tablet by mouth daily at bedtime. - naloxone 4 mg/actuation nasal spray (NARCAN) 1 spray by nasal (alternating) route as directed. - omeprazole (PRILOSEC) 40 mg capsule Take 1 capsule by mouth once daily. - rOPINIRole (REQUIP) 0.25 mg tablet Take 1 tablet by mouth daily at bedtime. - senna (SENOKOT) 8.6 mg tab Take 2 tablets by mouth once daily. - simethicone, chewable (MYLICON) 80 mg chewable tablet Take 1 tablet by mouth every 6 hours as needed. - tamsulosin (FLOMAX) 0.4 mg Take 2 capsules by mouth once daily. - clopidogrel (PLAVIX) 75 mg tablet Take 1 tablet by mouth once daily. - ciprofloxacin HCl (CIPRO) 500 mg tablet Take 1 tablet by mouth every 12 hours. - calcium carbonate (TUMS) 500 mg chew Take 2 tablets by mouth three times a day for 2 days. - calcitriol (ROCALTROL) 0.5 mcg capsule Take 0.5 mcg by mouth every 48 hours. Problem List As Of Date 02/17/2025 Noted Resolved Elevated PSA [R97.20] 12/08/2012 Dysuria [R30.0] 12/08/2012 Frequency of urination [R35.0] 12/08/2012 Family history of prostate cancer [Z80.42] 12/08/2012 Hesitancy of micturition [R39.11] 12/08/2012 Left inguinal hernia [K40.90] 12/08/2012 Peritonitis (HCC) [K65.9] 03/01/2023 ESRD (end stage renal disease) (HCC) [N18.6] 03/01/2023 Peritoneal dialysis catheter in situ (HCC) [Z99*03/01/2023 Hypertension associated with stage 5 chronic ki*03/01/2023 History of granulomatosis with polyangiitis [Z8*03/01/2023 Periumbilical abdominal pain [R10.33] 03/01/2023 Peripheral polyneuropathy [G62.9] 03/01/2023 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*03/03/2023 Fever and chills [R50.9] 03/03/2023 Dialysis patient (HCC) [Z99.2] 03/03/2023 Dialysis-associated peritonitis (HCC) [T85.71XA]03/03/2023 Malnutrition of mild degree (HCC) [E44.1] 03/09/2023 Obesity, Class I, BMI 30-34.9 [E66.811] 03/10/2023 Encounter Status:Closed by JESSICA BARNETT on 02/21/25 [facility] CT SINUS WO IVCONon 02-05-20 CT SINUS WO IVCON * * *Final Report* * * DATE OF EXAM: Feb 04 2025 3:06PM [facility] 0488 - CT SINUS WO IVCON / PROCEDURE REASON: multiple diagnoses * * * * Physician Interpretation * * * * EXAMINATION: CT SINUS WO IVCON CLINICAL HISTORY: Granulomatous with polyangiitis and renal involvement. TECHNIQUE: Spiral high resolution axial unenhanced CT images were obtained through the paranasal sinuses with sagittal, coronal reconstructions. MQ: CTSI_1 CT Radiation dose: Integrated Dose-Length Product (DLP) for this visit = 170 mGy*cm. CT Dose Reduction Employed: Automated exposure control(AEC) and iterative recon COMPARISON: None. RESULT: Post-Surgical Findings: Right maxillary ostium is slightly enlarged which should be correlated with any prior surgery. Sinus Chambers: Sinuses are clear. LEFT [place] Adin Score: 0 RIGHT Shaylee Adin Score: 0 TOTAL [place] Luis Carlos Score: 0 Nasal Cavities: Nasal septal deviation towards the right with small area of perforation anteriorly. Developmental Anomalies: None Other: The visualized mastoid air cells and middle ear cavities are clear. The soft tissues of the face and orbits are within normal limits within the limitations of the study. Localizer images: No additional findings. IMPRESSION: Perforated nasal septum can be seen as a result of granulomatosis. No other destructive change in sinonasal air chambers. No significant mucosal thickening to suggest active inflammatory process. Mastoid air cells and middle ear cavities are clear bilaterally. Supervisor Cutting And Sewing Room: [facility] Transcribe Date/Time: Feb 04 2025 3:15P Dictated by : ASHELY SMITH MD This examination was interpreted and the report reviewed and electronically signed by: ASHELY SMITH MD on Feb 04 2025 3:17PM EST [id number] Normal [facility] CNOVon 02-03-2025 CNOV Office Visit (RHEUMN ) FRANKLIN BURTON ([id number]) 1945 M Date Time Provider Department 02/03/25 9:00 AM NATHANEAL BLACK During your visit today, we recorded the following information about you: Temperature Pulse Blood pressure Weight 97.8 degrees 99/minute 117/74 101.7 kg Height 1.6 m Nathanael Black MD 02/22/2025 8:19 AM Signed Franklin Abdi Josephine is a 79 year old male. Consultation was requested by Dr. Kyler Garcia for an opinion regarding GPA; my final assessment and recommendations will be communicated back to the requesting physician by way of shared medical record, or by letter via fax or [place] mail or telephone call. Evaluation Date: 02/03/2025 Chief Complaint: The patient is a 79-year-old male with GPA, ESRD on hemodialysis, and DM, presenting for evaluation of a possible GPA flare. HPI: History was obtained from the patient and from outside records. Franklin Burton is a 79-year-old male with a history of granulomatosis with polyangiitis (GPA), presenting for evaluation of worsening symptoms. Franklin was initially diagnosed with GPA in 2013 following a hospitalization at [facility]. Initial symptoms began in 2012 and included severe myalgias in the shoulders, thighs, and throughout the body, along with fatigue and low-grade fevers. He was initially diagnosed with polymyalgia rheumatica and treated with prednisone, which provided significant relief. However, symptoms recurred in 2013, leading to a diagnosis of GPA confirmed by lung and kidney biopsies showing granulomas and glomerulonephritis, respectively. During the 2013 hospitalization, he experienced pulmonary involvement, renal failure, neuropathy with numbness, tingling, dizziness, and pain, as well as significant sinonasal issues, including congestion, drainage, and epistaxis. He also suffered from severe hearing loss. He was treated with high-dose steroids (1 g Solu-Medrol daily for 3 days, followed by prednisone 80 mg daily) and a 6-month course of IV cyclophosphamide starting in January 2014, transitioning to azathioprine in July 2014, which was discontinued in October 2015. In 2015, he was hospitalized for avascular necrosis of the hip, requiring hip replacement surgery. He also experienced shortness of breath in August 2015, treated with IV steroids and a prednisone taper. He reports a second round of cyclophosphamide treatment around 2016, though this is not documented in available records. 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 He also has a history of heart failure and is currently on dialysis, which he began in January 2022 after transitioning from peritoneal dialysis due to peritonitis in February 2023. Currently, he reports worsening myalgias, particularly in the feet, arms, hands, and back, which are not relieved by Tylenol but are managed with Percocet. He also experiences neuropathic pain in the feet, managed with gabapentin 300 mg at bedtime. He reports worsening sinonasal symptoms, including sinus pressure, occasional sinus pain, and ear fullness with crackling and popping sounds, particularly in the left ear. He notes worsening hearing loss, stating he is almost deaf without hearing aids. He denies recent epistaxis, chest pain, dyspnea, hemoptysis, skin rashes, or eye pain, but reports occasional itchy and watery eyes. He has not been on prednisone for several years and is not currently taking azathioprine. He denies symptoms of sleep apnea, such as snoring or waking up gasping for breath, but reports restless legs and pelvic discomfort affecting sleep. He denies daytime somnolence. He has not had an echocardiogram in many years but reports a clear cardiac catheterization 3-4 years ago. He has not seen an ENT specialist in 3 years. Recent imaging includes a chest X-ray in November 2024 showing clear lungs and a brain MRI showing chronic ischemic changes without acute findings. ROS GENERAL: fatigue FEVER: none WEIGHT CHANGE: none HEAD: negative for, headache ENT: negative for, nasal crusting, epistaxis, bloody nasal drainage, ear pain, sore throat, difficulty swallowing, mouth lesions, voice changes, loud noisy breathing or stridor EYES: negative for , pain, diplopia GASTROINTESTINAL: negative for, abdominal pain URINARY: negative for, dysuria, hematuria MUSCULOSKELETAL: negative for, joint swelling NEUROLOGIC: negative for, focal weakness SKIN: negative for, rash PAST SURGICAL HISTORY: PAST SURGICAL HISTORY Procedure Laterality Date KNEE ARTHROSCOPY/SURGERY 05/19/[address] knee-[address] PERITONEAL DIALYSIS CURRENT MEDICATIONS: Current Outpatient Medications Medication Sig rOPINIRole (REQUIP) 0.25 mg tablet Take 0.25 mg by mouth daily at bedtime. atorvastatin (LIPITOR) 40 mg tablet Take (more content not included)... Normal [facility] Abdomen/Pelvis W IV Cont ONL Yon 02-01-2025 Abdomen/Pelvis W IV Cont ONLY [facility] Imaging Services [address] [place] [address] Abdomen/Pelvis W IV Cont ONLY MR#: [id number] Acct: [id number] Name: FRANKLIN BURTON Rep #: [id number] : 1945 M 79 From: [place] MD PCP: Dr. Matilde Noguera MD Status: REG CLI Study: Abdomen/Pelvis W IV Cont ONLY Date of Exam: Exam# [id number] Ordering Dr: Kael Decker MD PROCEDURE: ABDOMEN/PELVIS W IV CONT ONLY 02/01/2025 REASON FOR EXAM: GROSS HEMATURIA TECHNIQUE: Procedure Code: [id number] Modality: CT Procedure: ABDOMEN/PELVIS W IV CONT ONLY Coronal and Sagittal reconstruction series were provided. CONTRAST: Isovue-300 VOLUME: 95 mL One or more dose reduction techniques were used (e.g., Automated exposure control, adjustment of the mA and/or kV according to patient size, use of iterative reconstruction technique. RADIATION DOSE SUMMARY: DLP: 1660.5 mGycm COMPARISON: Previous CT of the abdomen and pelvis of 02/25/2023 FINDINGS: Lung bases: Mild dependent atelectasis Liver: Normal size. No mass. Gallbladder: Decompressed. Spleen: Calcified granulomata. No mass or splenomegaly. Pancreas: Diffuse pancreatic atrophy. Multi cystic lesions in the pancreas including a 2.6 cm lesion in the head of the pancreas, a 2.1 cm cystic lesion in the uncinate process and a 1.3 cm lesion in the body. The lesion of the pancreatic head appears increased since previous exam. Adrenals: Normal Kidneys: Atrophic kidneys. 3.8 cm left renal cysts. No hydronephrosis. No nephrolithiasis. Bladder: Diffuse thickening of the bladder wall. Reproductive Organs: Enlarged prostate gland measuring 5.5 x 6.2 cm. Bowel: Diverticulosis without active diverticulitis. No bowel obstruction. Appendix: The appendix is not identified. There is no inflammatory process identified in the right lower quadrant to suggest appendicitis. Lymph nodes: No pelvic or retroperitoneal lymphadenopathy. Vasculature: Atherosclerosis of the aorta without aneurysm Peritoneum / Retroperitoneum: No ascites. No peritoneal implant. Bones: Compression fracture deformity of L1. This appears chronic. No destructive bone lesion. CT/Abdomen/Pelvis W IV Cont ONLY IMPRESSION: Circumferential thickening of the bladder wall which is underdistended with mild inflammatory changes. Underlying cystitis can not be excluded. Markedly enlarged prostate gland. No hydronephrosis or nephrolithiasis. Simple left renal cysts. Severe atrophy of the pancreas with prominent cystic lesion in the head of the pancreas measuring 2 cm. This could reflect a side branch duct intraductal papillary mucinous neoplasm. Additional cystic structures are scattered through the pancreatic body. No ductal dilatation. Correlation with MRCP with and without contrast is recommended. Reading Location: [facility] CC: Dr. Matilde Noguera MD; Dr. Kael Decker MD Supervisor Cutting And Sewing Room: Signed [facility] 01-31-2025 [facility] FRANKLIN BURTON ([id number]) 1945 M Date Time Provider Department 01/31/25 KYLER GARCIA [facility] During your visit today, we recorded the following information about you: Joselito Patient Administrative SupervisorIan 01/31/2025 11:48 AM Signed Referring provider, if any (patient's can self-refer): pcp Primary diagnosis or reason being seen: ESRD (end stage renal disease) (HCC) [N18.6] Chronic midline low back pain without sciatica [ Has patient been seen by inpatient provider? No Any recent notes pertaining to palliative care referral, please add here: noted for silvia Cristofermarquita Loree 01/31/2025 12:58 PM Signed Spoke with daughter to try to schedule appointment with palliaitive care. I explained we do virtual initial consults and then possible [facility] when it opens or do virtualbecause we do not have provider going to homes there. Daughter stated at this time she did not want to schedule but if she changes her mind she will call us Allergies As of Date: 01/31/2025 Noted Allergy Reaction ASPIRIN 12/01/2022 14 - Other: See Comments Comments: Kidney issues SEASONAL ALLERGIES 09/17/2011 14 - Other: See Comments Comments: Sneezing, itchy and watery eyes Date Reviewed: 01/13/2025 Reviewed by: Kyler Garcia MD - Fully Assessed Reason for Visit: 45584 Palliative Care [Other] Prescriptions as of 01/31/2025 - atorvastatin (LIPITOR) 40 mg tablet Take 40 mg by mouth every evening. - benzocaine (AMERICAINE) 20 % oral spray Apply 2 sprays to affected area four times a day as needed. - CAPSAICIN TOP Apply 1 application to affected area two times a day. - carboxymethylcellulose (REFRESH) 0.5 % drop 1 drop as needed. - clopidogrel (PLAVIX) 75 mg tablet Take 75 mg by mouth once daily. - finasteride (PROSCAR) 5 mg tablet Take 5 mg by mouth once daily. - gabapentin (NEURONTIN) 300 mg capsule Take 300 mg by mouth daily at bedtime. - melatonin 5 mg tablet Take 5 mg by mouth daily at bedtime. - naloxone 4 mg/actuation nasal spray (NARCAN) Use 4 mg in the nose as directed. - omeprazole (PRILOSEC) 40 mg capsule Take 40 mg by mouth once daily. - tamsulosin (FLOMAX) 0.4 mg Take 0.8 mg by mouth once daily. - acetaminophen (TYLENOL) 500 mg tablet Take 500 mg by mouth every 6 hours as needed. - simethicone, chewable (MYLICON) 80 mg chewable tablet Take 80 mg by mouth every 6 hours as needed. - ciprofloxacin HCl (CIPRO) 500 mg tablet Take 1 tablet by mouth every 12 hours. - senna (SENOKOT) 8.6 mg tab Take 2 tablets by mouth once daily. - metoprolol tartrate, short acting, (LOPRESSOR) 25 mg tablet Take 1 tablet by mouth once daily. - oxyCODONE-acetaminophe n (PERCOCET) 5-325 mg tablet Take 1 tablet by mouth every 8 hours as needed for pain for up to 30 days. TAKE 1 TABLET BY MOUTH EVERY 8 HOURS NEEDED FOR PAIN FOR 30 DAYS - mirtazapine (REMERON) 15 mg tablet Take 1 tablet by mouth daily at bedtime. - calcium carbonate (TUMS) 500 mg chew Take 2 tablets by mouth three times a day for 2 days. - azaTHIOprine (IMURAN) 50 mg tablet Take 50 mg by mouth once daily. - calcitriol (ROCALTROL) 0.5 mcg capsule Take 0.5 mcg by mouth every 48 hours. Problem List As Of Date 01/31/2025 Noted Resolved Elevated PSA [R97.20] 12/08/2012 Dysuria [R30.0] 12/08/2012 Frequency of urination [R35.0] 12/08/2012 Family history of prostate cancer [Z80.42] 12/08/2012 Hesitancy of micturition [R39.11] 12/08/2012 Left inguinal hernia [K40.90] 12/08/2012 Peritonitis (HCC) [K65.9] 03/01/2023 ESRD (end stage renal disease) (HCC) [N18.6] 03/01/2023 Peritoneal dialysis catheter in situ (HCC) [Z99*03/01/2023 Hypertension associated with stage 5 chronic ki*03/01/2023 History of granulomatosis with polyangiitis [Z8*03/01/2023 Periumbilical abdominal pain [R10.33] 03/01/2023 Peripheral polyneuropathy [G62.9] 03/01/2023 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*03/03/2023 Fever and chills [R50.9] 03/03/2023 Dialysis patient (HCC) [Z99.2] 03/03/2023 Dialysis-associated peritonitis (HCC) [T85.71XA]03/03/2023 Malnutrition of mild degree (HCC) [E44.1] 03/09/2023 Obesity, Class I, BMI 30-34.9 [E66.811] 03/10/2023 Encounter Status:Closed by JOSELITO PATIENT DIGITAL MARKETING MANAGERIAN on 01/31/25 [facility] 01-15-2025 [facility] Telephone ([facility]) FRANKLIN BURTON ([id number]) 1945 M Date Time Provider Department 01/15/25 KYLER GARCIA During your visit today, we recorded the following information about you: Daniel Staton LPN 01/15/2025 9:57 AM Signed ----- Message from Kyler Garcia MD sent at 01/14/2025 1:24 PM EDT ----- Hello, could we please try to call and just let him know PSA is elevated but stable from prior and he should discuss with his urologist he sees out of system. I tried to give them a call but he was not able to come to the phone to discuss. Thank you! Daniel Staton LPN 01/15/2025 10:01 AM Signed PATIENT NOTIFIED OF SAME. Allergies As of Date: 01/15/2025 Noted Allergy Reaction ASPIRIN 12/01/2022 14 - Other: See Comments Comments: Kidney issues SEASONAL ALLERGIES 09/17/2011 14 - Other: See Comments Comments: Sneezing, itchy and watery eyes Date Reviewed: 01/13/2025 Reviewed by: Kyler Garcia MD - Fully Assessed Prescriptions as of 01/15/2025 - atorvastatin (LIPITOR) 40 mg tablet Take 40 mg by mouth every evening. - benzocaine (AMERICAINE) 20 % oral spray Apply 2 sprays to affected area four times a day as needed. - CAPSAICIN TOP Apply 1 application to affected area two times a day. - carboxymethylcellulose (REFRESH) 0.5 % drop 1 drop as needed. - clopidogrel (PLAVIX) 75 mg tablet Take 75 mg by mouth once daily. - finasteride (PROSCAR) 5 mg tablet Take 5 mg by mouth once daily. - gabapentin (NEURONTIN) 300 mg capsule Take 300 mg by mouth daily at bedtime. - melatonin 5 mg tablet Take 5 mg by mouth daily at bedtime. - naloxone 4 mg/actuation nasal spray (NARCAN) Use 4 mg in the nose as directed. - omeprazole (PRILOSEC) 40 mg capsule Take 40 mg by mouth once daily. - tamsulosin (FLOMAX) 0.4 mg Take 0.8 mg by mouth once daily. - acetaminophen (TYLENOL) 500 mg tablet Take 500 mg by mouth every 6 hours as needed. - simethicone, chewable (MYLICON) 80 mg chewable tablet Take 80 mg by mouth every 6 hours as needed. - ciprofloxacin HCl (CIPRO) 500 mg tablet Take 1 tablet by mouth every 12 hours. - senna (SENOKOT) 8.6 mg tab Take 2 tablets by mouth once daily. - metoprolol tartrate, short acting, (LOPRESSOR) 25 mg tablet Take 1 tablet by mouth once daily. - oxyCODONE-acetaminophe n (PERCOCET) 5-325 mg tablet Take 1 tablet by mouth every 8 hours as needed for pain for up to 30 days. TAKE 1 TABLET BY MOUTH EVERY 8 HOURS NEEDED FOR PAIN FOR 30 DAYS - mirtazapine (REMERON) 15 mg tablet Take 1 tablet by mouth daily at bedtime. - calcium carbonate (TUMS) 500 mg chew Take 2 tablets by mouth three times a day for 2 days. - azaTHIOprine (IMURAN) 50 mg tablet Take 50 mg by mouth once daily. - calcitriol (ROCALTROL) 0.5 mcg capsule Take 0.5 mcg by mouth every 48 hours. Problem List As Of Date 01/15/2025 Noted Resolved Elevated PSA [R97.20] 12/08/2012 Dysuria [R30.0] 12/08/2012 Frequency of urination [R35.0] 12/08/2012 Family history of prostate cancer [Z80.42] 12/08/2012 Hesitancy of micturition [R39.11] 12/08/2012 Left inguinal hernia [K40.90] 12/08/2012 Peritonitis (HCC) [K65.9] 03/01/2023 ESRD (end stage renal disease) (HCC) [N18.6] 03/01/2023 Peritoneal dialysis catheter in situ (HCC) [Z99*03/01/2023 Hypertension associated with stage 5 chronic ki*03/01/2023 History of granulomatosis with polyangiitis [Z8*03/01/2023 Periumbilical abdominal pain [R10.33] 03/01/2023 Peripheral polyneuropathy [G62.9] 03/01/2023 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*03/03/2023 Fever and chills [R50.9] 03/03/2023 Dialysis patient (HCC) [Z99.2] 03/03/2023 Dialysis-associated peritonitis (HCC) [T85.71XA]03/03/2023 Malnutrition of mild degree (HCC) [E44.1] 03/09/2023 Obesity, Class I, BMI 30-34.9 [E66.811] 03/10/2023 Encounter Status:Closed by DANIEL STATON on 01/15/25 Normal [facility] HbA1c (Bld)on 01-14-2025 Average glucose Estimated from glycated hemoglobin (Bld) [Mass/Vol] 114 mg/dL [facility] Comment on above: eAG: (Estimated aver age glucose) is a calculated value from HgbA1c and is in home sales representative of the average blood glucose level in the last 2-3 month period. HbA1c (Bld) [Mass fraction] 5.6 % 4.3 - 5.6 % [facility] Comment on above: [place] Diabetes As sociation guidelines indicate that patients with HgbA1c in the range 5.7-6.4% are at increased risk for development of diabetes, and intervention by lifestyle modification may be beneficial. HgbA1c greater or equal to 6.5% is considered diagnostic of diabetes. [facility] LIPID PANEL, NONFASTINGon Cholesterol [Mass/Vol] 95 mg/dL NINF - 200 mg/dL [facility] Comment on above: <200 mg/dL, Desirabl e 200-239 mg/dL, Borderline high >239 mg/dL, High HDL Cholesterol, Nonfasting 47 mg/dL 39 - PINF mg/dL [facility] Comment on above: 40-59 mg/dL, Accepta ble >59 mg/dL, High: Negative risk factor for coronary heart disease <40 mg/dL, Low: Positive risk factor for coronary heart disease Interpretation and review of laboratory results Normal [facility] LDL Cholesterol Calculated, Nonfasting 30 mg/dL NINF - 100 mg/dL [facility] Comment on above: <100 mg/dL, Optimal 100-129 mg/dL, Near optimal/above optimal 130-159 mg/dL, Borderline high 160-189 mg/dL, High >189 mg/dL, Very high Secondary prevention optimal LDL Cholesterol levels are recommended to be <70 mg/dL LDL cholesterol is calculated using the Martinez-NIH equation. LDL/HDL Ratio, Nonfasting 0.64 mg/dL NINF - 2.54 mg/dL [facility] Comment on above: Reference: 1. National Cholesterol Education Program ATP III Guideline At-A-Glance Quick Desk Reference: National Heart, Lung, and Blood [place]. National Institutes of Health. 2001: NIH Publication No. 01-3305. 2. An International Atherosclerosis Society position paper: global recommendations for the management of dyslipidemia: executive summary, Atherosclerosis. 2014: 232(2):410-413. Non HDL Cholesterol, Nonfasting 48 mg/dL NINF - 130 mg/dL [facility] Comment on above: <130 mg/dL, Optimal 130-159 mg/dL, Near optimal/above optimal 160-189 mg/dL, Borderline high 190-219 mg/dL, High >219 mg/dL, Very high Secondary prevention optimal non HDL Cholesterol levels are recommended to be <100 mg/dL Total Chol/HDL Ratio, Nonfasting 2.02 mg/dL NINF - 5.10 mg/dL [facility] Triglycerides, Nonfasting 95 mg/dL NINF - 150 mg/dL [facility] Comment on above: <150 mg/dL, Normal 150-199 mg/dL, Borderline high 200-499 mg/dL, High >499 mg/dL, Very high VLDL Cholesterol, Nonfasting 13 mg/dL NINF - 30 mg/dL [facility] PSA/PROSTATE SPECIFIC ANTIGE N SCREENINGon 01-14-2025 Interpretation and review of laboratory results Abnormal [facility] Prostate specific Ag [Mass/Vol] 8.23 ng/mL High NINF - 2.60 ng/mL [facility] Comment on above: Total PSA test metho dology used is the Electrochemiluminescence Immunoassay by [employer]. Total PSA values by differing methodologies cannot be interchanged. For an individual patient, the significance of a PSA level should be interpreted in a broad clinical context, including age, race, family history, digital rectal exam, prostate size, results of prior testing (prostate biopsy, free PSA, PCA3), and use of 5-alpha reductase inhibitors. Considering the high incidence of asymptomatic cancer in the general population that may not pose an ultimate risk to a patient, the decision to recommend urological evaluation or prostate biopsy should be individualized after consideration of all these factors. REFERENCE: Toni Smith M.D., M.P.H., Miah Valadez M.D., Ph.D., Saturnino Casas M.D., Jcarlos Davis, M.P.H., Lora Flores Sc.D. Effect of Verification Bias on Screening for Prostate Cancer by Measurement of Prostatic Specific Antigen. N Engl J Med 2003,349:335-42. [facility] TOXICOLOGY SCREEN, ROUTINE U RINEon 01-14-2025 Amphetamines Confirm (U) [Mass/Vol] Negative Negative [facility] Comment on above: Cutoff threshold at 1000 ng/mL. Barbiturates, Urine Negative Negative [facility] Comment on above: Cutoff threshold at 200 ng/mL. Benzodiazepines, Urine Negative Negative [facility] Comment on above: Cutoff threshold at 200 ng/mL. Cannabinoids Screen Ql (U) Negative Negative [facility] Comment on above: Cutoff threshold at 50 ng/mL. Cocaine Ql (U) Negative Negative [facility] Comment on above: Cutoff threshold at 300 ng/mL. Ethanol (U) [Mass/Vol] mg/dL NINF - 11 mg/dL [facility] fentaNYL Screen Ql (U) Negative Negative [facility] Comment on above: Cutoff threshold at 5 ng/mL. Interpretation and review of laboratory results Abnormal [facility] Opiates Screen Ql (U) Negative Negative [facility] Comment on above: Cutoff threshold at 300 ng/mL. oxyCODONE cutoff Screen (U) [Mass/Vol] Positive Abnormal Negative [facility] Comment on above: Cutoff threshold at 100 ng/mL. Phencyclidine Ql (U) Negative Negative [facility] Comment on above: Cutoff threshold at 25 ng/mL. Immunoassay screen only. Cross reactivity with other substances can occur with immunoassay screening. Detection of any drug(s) in this urine toxicology panel is presumptive only. These tests are for medical purposes only and should not be used for compliance monitoring, legal, or forensic use. Samples should be within normal physiological conditions (e.g. pH). This assay does not include adulteration/specimen validity testing. In clinical settings, confirmatory testing is at the practitioner's discretion [1]. If clinically indicated, confirmation by high specificity, quantitative methodology, which includes adulteration/specimen validity testing, may be requested on the same specimen through Client Services ([phone]) if contacted within 48 hours of initial testing. [1]Substance Abuse and Mental Health Services Administration (2012). Clinical Drug Testing in Primary Care Technical Assistance Publication Series 32. Department of Health and Human Services, [place], p.10. [facility] CNOVon 01-13-2025 CNOV Office Visit (FAMPWS ) FRANKLIN BURTON ([id number]) 1945 M Date Time Provider Department 01/13/25 11:20 AM KYLER GARCIA During your visit today, we recorded the following information about you: Temperature Pulse Respiration Blood pressure 98.8 degrees 79/minute 16/minute 106/60 Weight Height 98.2 kg 1.6 m Kyler Garcia MD 01/14/2025 3:39 PM Addendum Family Medicine OUTPATIENT VISIT January 13, 2025 CC: Establish care HPI: 79 year old male patient with a history of T2DM not on meds. Peripheral neuropathy on gabapetin 300 Insomnia on melatonin, mirtazapine HTN on metoprolol 25 BID HLD on atorvastatin 40 On plavix 75 For unclear reasons, denies hx of PAD, CAD, past OK, past strokes Hernia GERD on omprazole and simethicone Chronic pain on percocet ESRD on iHD MWF, follows at [facility] and sees check out cashier there. BPH on finasteride, flomax, follows with urology ROYAL RLS GPA on azothioprine HFpEF (EF 50% 12/10) Chronic back pain, on percet. Elevated PSA Obesity Abnormal parathyroid level Encephalopathy, likely multifactorial with admission for this 12/10 and possibly 2/2 gabapentin and lyrica being taken not as prescribed Chronic debility Metabolic bone disease, last dexa 2018 osteopenia Recent admission in October for AMS, debility ED visit 01/05 for UTI started on CIPRO for morganella UTI, cipro susceptible, notably was having hematuria with this event. He does see urology Dr. Sarath Decker. Seeing them January 18 out of system. It is not totally clear why he is on plavix. Has not had cardiac stents. Denies his anxiety is to the degree it is impacting his life. He had a CPAP machine but gave it to his son in law who he felt had worse sleep apnea. He is on Percocet for chronic back pain. He has been on it for 15 years. He is also using it to treat his ROYAL and insomnia, saying he does not need CPAP as he just takes a percocet and I go right to sleep. No issues with falls or ambulation around his home. Was having home PT after hospital stay but says they discharged him as he was doing well. Unclear why he stopped taking calcitriol. He is not sure what the management plan is for his metabolic bone disease. His UTI symptoms have resolved. Has a few days left of Cipro. Transplant had been brought up but he says that he is it an option but he does not want to pursue it due to age. He has a POA. would want to be revived if he arrested unless on slot floor attendant life support. Review of Systems PAIN ASSESSMENT: Chronic back pain GENERAL: No weight loss, or fevers HEENT: Negative for frequent or significant headaches RESPIRATORY: Negative for cough, wheezing, shortness of breath CARDIOVASCULAR: Negative for chest pain, palpitations, PND or orthopnea GI: No nausea, vomiting, or diarrhea or abdominal pain. No TX bleeding or melana : No history of dysuria, frequency, urgency, or change in urine appearance NEURO: No history of headaches, numbness, weakness, or changes to vision or hearing Health maintenance: Dilated Retinal Exam Never done Diabetic Foot Exam Never done Shingrix Vaccine(1 of 2) Never done Medicare Annual Wellness Visit Never done RSV Vaccine(1 - 1-dose 75+ series) Never done Hepatitis B Vaccine(8 of 8 - Risk Dialysis 4-dose series) due on 12/31/2023 Advance Directive Discussion Never done Allergies: ALLERGIES Allergen Reactions Aspirin Other: See Comments Kidney issues Seasonal Allergies Other: See Comments Sneezing, itchy and watery eyes Medications: atorvastatin (LIPITOR) 40 mg tablet Take 40 mg by mouth every evening. benzocaine (AMERICAINE) 20 % oral spray Apply 2 sprays to affected area four times a day as needed. CAPSAICIN TOP Apply 1 application to affected area two times a day. carboxymethylcellulose (REFRESH) 0.5 % drop 1 drop as needed. clopidogrel (PLAVIX) 75 mg tablet Take 75 mg by mouth once daily. finasteride (PROSCAR) 5 mg tablet Take 5 mg by mouth once daily. gabapentin (NEURONTIN) 300 mg capsule Take 300 mg by mouth daily at bedtime. melatonin 5 mg tablet Take 5 mg by mouth daily at bedtime. naloxone 4 mg/actuation nasal spray (NARCAN) Use 4 mg in the nose as directed. omeprazole (PRILOSEC) 40 mg capsule Take 40 mg by mouth once daily. tamsulosin (FLOMAX) 0.4 mg Take 0.8 mg by mouth once daily. acetaminophen (TYLENOL) 500 mg tablet Take 500 mg by mouth every 6 hours as needed. simethicone, chewable (MYLICON) 80 mg chewable tablet Take 80 mg by mouth every 6 hours as needed. ciprofloxacin HCl (CIPRO) 500 mg tablet Take 1 tablet by mouth every 12 hours. mirtazapine (REMERON) 15 mg tablet Take 1 tablet by mouth daily at bedtime. calcium carbonate (TUMS) 500 mg chew Take 2 tablets by mouth three times a day for 2 days. azaTHIOprine (IMURAN) 50 mg tablet Take 50 mg by mouth once daily. senna (SENOKOT) 8.6 mg (more content not included)... Normal [facility] HbA1c (Bld)on 01-13-2025 Average glucose Estimated from glycated hemoglobin (Bld) [Mass/Vol] 114 mg/dL Normal [facility] Comment on above: Order Comment: Specloretta men Type: BLOOD SPECIMENOrdering Facility: [facility] Address: [address] [place] [address] Result Comment: eAG: (Estimated average glucose) is a calculated value from HgbA1c and is in home sales representative of the average blood glucose level in the last 2-3 month period. Performed By: #### 5 5454-3 ####[facility] LABCLIA [id number] [place] [address] [place] HbA1c (Bld) [Mass fraction] 5.6 % Normal 4.3-5.6 [facility] Comment on above: Order Comment: Camilo redman Type: BLOOD SPECIMENOrdering Facility: [facility] Address: [address] [place] [address] Result Comment: Ramon ican Diabetes Association guidelines indicate that patients with HgbA1c in the range 5.7-6.4% are at increased risk for development of diabetes, and intervention by lifestyle modification may be beneficial. HgbA1c greater or equal to 6.5% is considered diagnostic of diabetes. Performed By: #### 5 5454-3 ####[facility] LABCLIA [id number] [address] [facility] LIPID PANEL, NONFASTINGon Cholesterol [Mass/Vol] 95 mg/dL Normal <200 [facility] Comment on above: Order Comment: Speci men Type: BLOOD SPECIMENOrdering Facility: [facility] Address: [address] [place] [address] Result Comment: <200 mg/dL, Desirable 200-239 mg/dL, Borderline high >239 mg/dL, High Performed By: #### L IPNF ####[facility] LABCLIA [id number] [address] STATES [facility] HDL CHOLESTEROL, NF 47 mg/dL Normal >39 [facility] Comment on above: Order Comment: Speci men Type: BLOOD SPECIMENOrdering Facility: [facility] Address: [address] [place] [address] Result Comment: 40-5 9 mg/dL, Acceptable >59 mg/dL, High: Negative risk factor for coronary heart disease <40 mg/dL, Low: Positive risk factor for coronary heart disease Performed By: #### L IPNF ####[facility] LABCLIA [id number] [address] LDL CHOLESTEROL CALCULATED, NF 30 mg/dL Normal <100 [facility] Comment on above: Order Comment: Speci men Type: BLOOD SPECIMENOrdering Facility: [facility] Address: [address] [place] [address] Result Comment: <100 mg/dL, Optimal 100-129 mg/dL, Near optimal/above optimal 130-159 mg/dL, Borderline high 160-189 mg/dL, High >189 mg/dL, Very high Secondary prevention optimal LDL Cholesterol levels are recommended to be <70 mg/dL LDL cholesterol is calculated using the Martinez-NIH equation. Performed By: #### L IPNF ####[facility] LABCLIA [id number] [address] [place] LDL/HDL RATIO, NF 0.64 mg/dL Normal <2.54 [facility] Comment on above: Order Comment: Speci men Type: BLOOD SPECIMENOrdering Facility: [facility] Address: [address] [place] [address] Result Comment: Refe jatinderce: 1. National Cholesterol Education Program ATP III Guideline At-A-Glance Quick Desk Reference: National Heart, Lung, and Blood [place]. National Institutes of Health. 2001: NIH Publication No. 01-3305. 2. An International Atherosclerosis Society position paper: global recommendations for the management of dyslipidemia: executive summary, Atherosclerosis. 2014: 232(2):410-413. Performed By: #### L IPNF ####[facility] LABCLIA [id number] [address] [place] NON HDL CHOL, NF 48 mg/dL Normal <130 [facility] Comment on above: Order Comment: Speci men Type: BLOOD SPECIMENOrdering Facility: [facility] Address: [address] [place] [address] Result Comment: <130 mg/dL, Optimal 130-159 mg/dL, Near optimal/above optimal 160-189 mg/dL, Borderline high 190-219 mg/dL, High >219 mg/dL, Very high Secondary prevention optimal non HDL Cholesterol levels are recommended to be <100 mg/dL Performed By: #### L IPNF ####[facility] LABCLIA [id number] [place] [address] [place] T CHOL/HDL RATIO NF 2.02 mg/dL Normal <5.10 [facility] Comment on above: Order Comment: Speci men Type: BLOOD SPECIMENOrdering Facility: [facility] Address: [address] [place] [address] Performed By: #### L IPNF ####[facility] LABCLIA [id number] [place] [id number] [place] TRIGLYCERIDES, NF 95 mg/dL Normal <150 [facility] Comment on above: Order Comment: Speci men Type: BLOOD SPECIMENOrdering Facility: [facility] Address: [address] [place] [address] Result Comment: <150 mg/dL, Normal 150-199 mg/dL, Borderline high 200-499 mg/dL, High >499 mg/dL, Very high Performed By: #### L IPNF ####[facility] LABCLIA [id number] [place] [address] [place] VLDL CHOLESTEROL, NF 13 mg/dL Normal <30 [facility] Comment on above: Order Comment: Speci men Type: BLOOD SPECIMENOrdering Facility: [facility] Address: [address] [place] [address] Performed By: #### L IPNF ####[facility] LABCLIA [id number] [place] [address] [place] PSA/PROSTATE SPECIFIC ANTIGE N SCREENINGon 01-13-2025 Prostate specific Ag [Mass/Vol] 8.23 ng/mL High <2.60 [facility] Comment on above: Order Comment: Speci men Type: BLOOD SPECIMENOrdering Facility: [facility] Address: [address] [place] [address] Result Comment: Octavia abdi PSA test methodology used is the Electrochemiluminescence Immunoassay by [employer]. Total PSA values by differing methodologies cannot be interchanged. For an individual patient, the significance of a PSA level should be interpreted in a broad clinical context, including age, race, family history, digital rectal exam, prostate size, results of prior testing (prostate biopsy, free PSA, PCA3), and use of 5-alpha reductase inhibitors. Considering the high incidence of asymptomatic cancer in the general population that may not pose an ultimate risk to a patient, the decision to recommend urological evaluation or prostate biopsy should be individualized after consideration of all these factors. REFERENCE: Toni Smith M.D., M.P.H., Miah Valadez M.D., Ph.D., Saturnino Casas M.D., Jcarlos Davis, M.P.H., Lora Flores, Sc.D. Effect of Verification Bias on Screening for Prostate Cancer by Measurement of Prostatic Specific Antigen. N Engl J Med 2003,349:335-42. Performed By: #### P SAS1 ####[facility] [id number] [place] [address] [place] TOXICOLOGY SCREEN, ROUTINE U RINEon 01-13-2025 Amphetamines Confirm (U) [Mass/Vol] Negative Normal Negative [facility] Comment on above: Order Comment: Speci men Type: URINE SPECIMENOrdering Facility: [facility] Address: [address] [place] [address] Result Comment: Cuto ff threshold at 1000 ng/mL. Performed By: #### U TOX2 ####[facility] [id number] [place] [address] [place] BARBITURATES, URINE Negative Normal Negative [facility] Comment on above: Order Comment: Speci men Type: URINE SPECIMENOrdering Facility: [facility] Address: [address] [place] [address] Result Comment: Cuto ff threshold at 200 ng/mL. Performed By: #### U TOX2 ####[facility] [id number] [place] [address] [place] BENZODIAZEPINES, URINE Negative Normal Negative [facility] Comment on above: Order Comment: Speci men Type: URINE SPECIMENOrdering Facility: [facility] Address: [address] [place] [address] Result Comment: Cuto ff threshold at 200 ng/mL. Performed By: #### U TOX2 ####[facility] LABIA [id number] [place] [address] [place] Cannabinoids Screen Ql (U) Negative Normal Negative [facility] Comment on above: Order Comment: Speci men Type: URINE SPECIMENOrdering Facility: [facility] Address: [address] [place] [address] Result Comment: Cuto ff threshold at 50 ng/mL. Performed By: #### U TOX2 ####[facility] LABCLIA [id number] [place] [address] [place] Cocaine Ql (U) Negative Normal Negative [facility] Comment on above: Order Comment: Speci men Type: URINE SPECIMENOrdering Facility: [facility] Address: [address] [place] [address] Result Comment: Cuto ff threshold at 300 ng/mL. Performed By: #### U TOX2 ####[facility] LABCLIA [id number] [place] [address] [place] Ethanol (U) [Mass/Vol] <11 Normal <11 [facility] Comment on above: Order Comment: Speci men Type: URINE SPECIMENOrdering Facility: [facility] Address: [address] [place] [address] Performed By: #### U TOX2 ####[facility] LABCLIA [id number] [place] [address] [place] fentaNYL Screen Ql (U) Negative Normal Negative [facility] Comment on above: Order Comment: Speci men Type: URINE SPECIMENOrdering Facility: [facility] Address: [address] [place] [address] Result Comment: Cuto ff threshold at 5 ng/mL. Performed By: #### U TOX2 ####[facility] LABCLIA [id number] [place] [address] [place] Opiates Screen Ql (U) Negative Normal Negative [facility] Comment on above: Order Comment: Speci men Type: URINE SPECIMENOrdering Facility: [facility] Address: [address] [place] [address] Result Comment: Cuto ff threshold at 300 ng/mL. Performed By: #### U TOX2 ####[facility] LABCLIA [id number] [place] [address] [place] oxyCODONE cutoff Screen (U) [Mass/Vol] Positive Abnormal Negative [facility] Comment on above: Order Comment: Speci men Type: URINE SPECIMENOrdering Facility: [facility] Address: [address] [place] [address] Result Comment: Cuto ff threshold at 100 ng/mL. Performed By: #### U TOX2 ####[facility] LABCLIA [id number] [address] Phencyclidine Ql (U) Negative Normal Negative [facility] Comment on above: Order Comment: Speci men Type: URINE SPECIMENOrdering Facility: [facility] Address: [address] [place] [address] Result Comment: Cuto ff threshold at 25 ng/mL. Performed By: #### U TOX2 ####[facility] LABCLIA [id number] [address] [facility] Urine Cultureon 01-07-2025 URC Morganella morganii sp morgani [place] Count 25,000-50,000 Morganella morganii sp morgani: REACTION Ampicillin Islt OLAYINKA >=32 Ampicillin+Sulbac Islt OLAYINKA 8 S Ciprofloxacin Islt OLAYINKA <=0.06 S Gentamicin Islt OLAYINKA <=1 S levoFLOXacin Islt OLAYINKA <=0.12 S Meropenem Islt OLAYINKA <=0.25 S Nitrofurantoin Islt OLAYINKA R Pip+Tazo Islt OLAYINKA <=4 S TMP SMX Islt OLAYINKA >=320 R Normal [facility] Comment on above: Performed By: #### M 100.2200 #### [facility] [address] [place], [address] Absolute lymphocyte countOrd ered By: Vinay Gomez on 01-05-2025 Lymphocytes Auto (Unsp spec) [#/Vol] 0.62 10*3/uL Low 0.83-4.51 [facility] Absolute neutrophil countOrd ered By: Vinay Gomez on 01-05-2025 Neutrophils (Bld) [#/Vol] 2.5 10*3/uL 2.0-7.7 [facility] Anion gap in Serum or Plasma Ordered By: Vinay Gomez on 01-05-2025 Anion gap [Moles/Vol] 10 mmol/L 5-15 [facility] Automated lymphocyte count a s percentage of total leukocytesOrdered By: Vinay Gomez on 01-05-2025 Lymphocytes/100 WBC Auto (Unsp spec) 17.2 % Low 19-41 [facility] BUN/creatinine ratioOrdered By: Vinay Gomez on 01-05-2025 Urea nitrogen/Creatinine [Mass ratio] 3.3 mg/mg Low 10- [facility] Basic Metabolic Profile (BMP )on 01-05-2025 BUN/CRE 3.3 RATIO Low - [facility] Comment on above: Performed By: #### L 500.2500, L100.0100 #### [facility] [address] [place], [address] Calcium [Mass/Vol] 9.0 mg/dL Normal 7.6-11.0 [facility] Comment on above: Performed By: #### L 500.2500, L100.0100 #### [facility] [address] [place], [address] Chloride [Moles/Vol] 99 mmol/L Normal 98-108 [facility] Comment on above: Performed By: #### L 500.2500, L100.0100 #### [facility] [address] [place], [address] CO2 [Moles/Vol] 30.4 mmol/L Normal 21.0-32.0 [facility] Comment on above: Performed By: #### L 500.2500, L100.0100 #### [facility] [address] [place], [address] Creatinine [Mass/Vol] 2.63 mg/dL High 0.70-1.20 [facility] Comment on above: Performed By: #### L 500.2500, L100.0100 #### [facility] [address] [place], [address] GAP 10 Normal 5-15 [facility] Comment on above: Performed By: #### L 500.2500, L100.0100 #### [facility] [address] [place], [address] GFR/1.73 sq M.predicted among non-blacks MDRD (S/P/Bld) [Vol rate/Area] 24 mL/min/{1.73_m2} Low >60 [facility] Comment on above: Result Comment: mL/m in/1.73m2 CKD-EPI Creatinine Equation (2020) Performed By: #### L 500.2500, L100.0100 #### [facility] [address] [place], [address] Glucose [Mass/Vol] 114 mg/dL High 70-99 [facility] Comment on above: Performed By: #### L 500.2500, L100.0100 #### [facility] [address] [place], [address] Potassium [Moles/Vol] 3.8 mmol/L Normal 3.3-5.1 [facility] Comment on above: Performed By: #### L 500.2500, L100.0100 #### [facility] [address] [place], [address] Sodium [Moles/Vol] 139 mmol/L Normal 133-145 [facility] Comment on above: Performed By: #### L 500.2500, L100.0100 #### [facility] [address] [place], [address] Urea nitrogen [Mass/Vol] 9 mg/dL Normal 4-19 [facility] Comment on above: Performed By: #### L 500.2500, L100.0100 #### [facility] [address] [place], [address] Basophil percentageOrdered B y: Vinay Gomez on 01-05-2025 Basophils/100 WBC (Bld) 1.1 % High 0-1 [facility] Bilirubin Test strip Ql (U)O rdered By: Vinay Gomez on 01-05-2025 Bilirubin Ql (U) Negative Negative [facility] CBC W/Diff, Automatedon 12-18 Absolute Lymph 0.62 X10 3/uL Low 0.83-4.51 [facility] Comment on above: Performed By: #### L 500.2500, L100.0100 #### [facility] [address] [place], [address] Absolute Neut 2.5 X10 3/uL Normal 2.0-7.7 [facility] Comment on above: Performed By: #### L 500.2500, L100.0100 #### [facility] [address] [place], [address] Basophils/100 WBC (Bld) 1.1 % High 0-1 [facility] Comment on above: Performed By: #### L 500.2500, L100.0100 #### [facility] [address] [place], [address] Eosinophils/100 WBC (Bld) 2.8 % Normal 0-5 [facility] Comment on above: Performed By: #### L 500.2500, L100.0100 #### [facility] [address] [place], [address] Erythrocyte distribution width (RBC) [Ratio] 14.2 % Normal 11.6-14.6 [facility] Comment on above: Performed By: #### L 500.2500, L100.0100 #### [facility] [address] [place], [address] Hematocrit (Bld) [Volume fraction] 33.6 % Low 40-54 [facility] Comment on above: Performed By: #### L 500.2500, L100.0100 #### [facility] [address] [place], [address] Hemoglobin (Bld) [Mass/Vol] 11.0 g/dL Low 13.0-16.5 [facility] Comment on above: Performed By: #### L 500.2500, L100.0100 #### [facility] [address] [place], [address] IG% 0.300 Normal 0.0-0.9 [facility] Comment on above: Result Comment: IG% - Immature Granulocytes (promyelocytes, myelocytes and metamyelocytes) > 1% indicates that a LEFT SHIFT is Present. Performed By: #### L 500.2500, L100.0100 #### [facility] [address] [place], [address] Lymphocytes/100 WBC (Bld) 17.2 % Low 19-41 [facility] Comment on above: Performed By: #### L 500.2500, L100.0100 #### [facility] [address] [place], [address] MCH (RBC) [Entitic mass] 31.2 pg Normal 27.0-32.0 [facility] Comment on above: Performed By: #### L 500.2500, L100.0100 #### [facility] [address] [place], [address] MCHC (RBC) [Mass/Vol] 32.7 g/dL Normal 32-36 [facility] Comment on above: Performed By: #### L 500.2500, L100.0100 #### [facility] [address] [place], [address] MCV (RBC) [Entitic vol] 95.2 fL High 80-94 [facility] Comment on above: Performed By: #### L 500.2500, L100.0100 #### [facility] [address] [place], [address] Monocytes/100 WBC (Bld) 9.7 % Normal 0-10 [facility] Comment on above: Performed By: #### L 500.2500, L100.0100 #### [facility] [address] [place], [address] Neutrophils/100 WBC (Bld) 68.9 % Normal 47-70 [facility] Comment on above: Performed By: #### L 500.2500, L100.0100 #### [facility] [address] [place], [address] Nucleated RBC (Bld) [#/Vol] 0 10*3/uL Normal 0-5 [facility] Comment on above: Performed By: #### L 500.2500, L100.0100 #### [facility] [address] [place], [address] Platelet mean volume (Bld) [Entitic vol] 9.2 fL Normal 6.2-12.0 [facility] Comment on above: Performed By: #### L 500.2500, L100.0100 #### [facility] [address] [place], [address] Platelets (Bld) [#/Vol] 136 10*3/uL Low 150-450 [facility] Comment on above: Performed By: #### L 500.2500, L100.0100 #### [facility] [address] [place], [address] RBC (Bld) [#/Vol] 3.53 10*6/uL Low 4.6-6.2 [facility] Comment on above: Performed By: #### L 500.2500, L100.0100 #### [facility] [address] [place], [address] RDW SD 49.5 fl High 35.1-43.9 [facility] Comment on above: Performed By: #### L 500.2500, L100.0100 #### [facility] [address] [place], [address] WBC (Bld) [#/Vol] 3.6 10*3/uL Low 4.4-11.0 [facility] Comment on above: Performed By: #### L 500.2500, L100.0100 #### [facility] [address] [place], [address] Carbon dioxide, total [Moles /volume] in Central venous bloodOrdered By: Vinay Gomez on 01-05-2025 CO2 [Moles/Vol] 30.4 mmol/L 21.0-32.0 [facility] Chloride assayOrdered By: Marcelino Gomez on 01-05-2025 Chloride [Moles/Vol] 99 mmol/L 98-108 [facility] Emergency Department Summary on 01-05-2025 Emergency Department Summary [facility] Medical Records Department [address] [place] [address] Emergency Department Summary 01/05/25 MR#: [id number] Acct: [id number] Name: FRANKLIN BURTON Rep #: [id number] : 1945 79 From: Vinay Gomez MD PCP: Kyler Garcia MD Status:REG ER Location: ED HPI History of Present Illness Chief Complaint: Complaint Informant: patient and spouse/S.O. Pain Onset: Weeks Context: Gradual Onset Timing: Intermittent Current Severity: Mild Maximum Severity: Mild Narrative Narrative: 79-year-old male history of end-stage renal disease dialysis. Dialyzed Friday was dialyzed a full run this morning. History of anemia, CHF and Zach's. States that about a month ago he started small amount of blood in his urine. It was intermittent. He has had it over the last 3 days each day. Small clots. He is able to urinate. Said he is having a normal stream. Feels like he is emptying his bladder. He is on no blood thinners not even aspirin. He does see urologist Dr. Sarath Decker. Denies any history of bladder cancer. History of prior TURP procedure. Prior similar symptoms: No Recent Illness/Hospitalizatio n: Yes PFSH [facility] Medical History Dialysis patient Wears hearing aid [...] handicap placard #1 ea 03/12/23 Unknown Rx triamcinolone acetonide 0.1 % 1 applic topical DAILY PRN 4 Unknown Rx topical ointment rash/itching #15 grams mirtazapine 15 mg tablet 15 mg PO QHS #90 tabs 06/08/24 Unk nown Rx omeprazole 40 mg capsule,delayed 40 mg PO DAILY stomach #90 caps Unknown Rx release metoprolol tartrate 25 mg tablet 25 mg PO DAILY BP #90 tabs 5 Unknown Rx melatonin 3 mg capsule 3 mg PO HS PRN sleep #30 caps 09/17 02/10 Unknown Rx magna life topical 10/15/24 Unknown History tamsulosin 0.4 mg capsule 0.8 mg (2 x 0.4 mg) PO QDAY #60 Unknown Rx caps gabapentin 100 mg capsule 300 mg PO QHS 12/07/24 Unknown His tory ropinirole 0.25 mg tablet 0.25 mg PO QHS #30 tabs 12/07/24 U nknown Rx ciprofloxacin HCl 500 mg tablet 500 mg PO BID 10 days #20 tabs Unknown Rx (Cipro) Allergy/AdvReac Type Severity Reaction Status Date / Time finasteride Allergy Intermediate mastodynia Verified 01/05/25 12:19 aspirin AdvReac Severe cannot Verified 01/05/25 12:19 take d/t Zach's Vasculitis Family History Mother [...] house 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 Intermittent gross hematuria. No dysuria. No fever. Able to urinate. Constitutional Constitutional ED: Denies chills or fever(s) Eyes Eyes: Denies blurry vision ENT ENT ED: Denies ear pain Cardiovascular Cardiovascular: Denies chest pain Respiratory/Chest Res (more content not included)... Normal [facility] Eosinophil percentageOrdered By: Vinay Gomez on 01-05-2025 Eosinophils/100 WBC (Bld) 2.8 % 0-5 [facility] Erythrocyte distribution wid th ratioOrdered By: Vinay Gomez on 01-05-2025 Erythrocyte distribution width (RBC) [Ratio] 14.2 % 11.6-14.6 [facility] Erythrocyte distribution wid th standard deviationOrdered By: Vinay Gomez on 01-05-2025 Erythrocyte distribution width (RBC) [Ratio] 49.5 fl High 35.1-43.9 [facility] Glomerular filtration rate ( GFR) estimation/1.73 sq m using serum, plasma, or whole bOrdered By: Vinay Gomez on 01-05-2025 GFR/1.73 sq M.predicted among non-blacks MDRD (S/P/Bld) [Vol rate/Area] 24 mL/min/{1.73_m2} Low >60 [facility] Comment on above: mL/min/1.73m2 CKD-EP I Creatinine Equation (2020) Hematocrit Auto (Bld) [Volum e fraction]Ordered By: Vinay Gomez on 01-05-2025 Hematocrit (Bld) [Volume fraction] 33.6 % Low 40-54 [facility] Hemoglobin measurementOrdere d By: Vinay Gomez on 01-05-2025 Hemoglobin (Bld) [Mass/Vol] 11.0 g/dL Low 13.0-16.5 [facility] Immature granulocytes/100 WB C Auto (Bld)Ordered By: Vinay Gomez on 01-05-2025 Immature granulocytes/100 WBC (Bld) 0.300 % 0.0-0.9 [facility] Comment on above: IG% - Immature Granu locytes (promyelocytes, myelocytes and metamyelocytes) > 1% indicates that a LEFT SHIFT is Present. Ketones Test strip Ql (U)Ord ered By: Vinay Gomez on 01-05-2025 Ketones Ql (U) Negative Negative [facility] MCV (mean corpuscular volume ) determinationOrdered By: Vinay Gomez on 01-05-2025 MCV (RBC) [Entitic vol] 95.2 fL High 80-94 [facility] Mean corpuscular hemoglobin (MCH) determinationOrdered By: Vinay Gomez on 01-05-2025 MCH (RBC) [Entitic mass] 31.2 pg 27.0-32.0 [facility] Mean corpuscular hemoglobin concentration (MCHC) determinationOrdered By: Vinay Gomez on 01-05-2025 MCHC (RBC) [Mass/Vol] 32.7 g/dL 32-36 [facility] Mean platelet volume determi nationOrdered By: Vinay Gomez on 01-05-2025 Platelet mean volume (Bld) [Entitic vol] 9.2 fL 6.2-12.0 [facility] Microscopic analysis of urin e for red blood cells (RBC)Ordered By: Vinay Gomez on 01-05-2025 Microscopic analysis of urine for red blood cells (RBC) 25-50 SEEN /hpf 0-5 [facility] Monocyte percentageOrdered B y: Vinay Gomez on 01-05-2025 Monocytes/100 WBC (Bld) 9.7 % 0-10 [facility] Mucus LM Ql (Urine sed)Order ed By: Vinay Gomez on 01-05-2025 Mucus Ql (Urine sed) 0 SEEN /hpf [facility] Neutrophil percentageOrdered By: Vinay Gomez on 01-05-2025 Neutrophils/100 WBC (Bld) 68.9 % 47-70 [facility] Nitrite Test strip Ql (U)Ord ered By: Vinay Gomez on 01-05-2025 Nitrite Ql (U) Negative Negative [facility] Nucleated red blood cell per centageOrdered By: Vinay Gomez on 01-05-2025 Nucleated RBC/100 WBC (Bld) [Ratio] 0 % 0-5 [facility] Platelet countOrdered By: Marcelino Gomez on 01-05-2025 Platelets (Bld) [#/Vol] 136 10*3/uL Low 150-450 [facility] Potassium measurement (mass/ volume)Ordered By: Vinay Gomez on 01-05-2025 Potassium (Unsp spec) [Mass/Vol] 3.8 mmol/L 3.3-5.1 [facility] Protein Test strip Ql (U)Ord ered By: Vinay Gomez on 01-05-2025 Protein Ql (U) 100 mg/dl High Negative [facility] RBC Auto (Bld) [#/Vol]Ordere d By: Vinay Gomez on 01-05-2025 RBC (Bld) [#/Vol] 3.53 10*6/uL Low 4.6-6.2 [facility] Serum creatinine measurement (mass/volume)Ordered By: Vinay Gomez on 01-05-2025 Creatinine [Mass/Vol] 2.63 mg/dL High 0.70-1.20 [facility] Serum glucose measurement (m ass/volume)Ordered By: Vinay Gomez on 01-05-2025 Glucose [Mass/Vol] 114 mg/dL High 70-99 [facility] Serum or plasma calcium satish urement (mass/volume)Ordered By: Vinay Gomez on 01-05-2025 Calcium [Mass/Vol] 9.0 mg/dL 7.6-11.0 [facility] Serum or plasma urea nitroge n measurement (mass/volume)Ordered By: Vinay Gomez on 01-05-2025 Urea nitrogen [Mass/Vol] 9 mg/dL 4-19 [facility] Sodium levelOrdered By: Vinay Gomez on 01-05-2025 Sodium [Moles/Vol] 139 mmol/L 133-145 [facility] Squamous epithelial cells de tection in urine sediment by light microscopyOrdered By: Vinay Gomez on 01-05-2025 Epithelial cells.squamous LM Ql (Urine sed) 0-5 SEEN /hpf 0-5 [facility] Urinalysis, Completeon 01-05 BACTERIA 1+ /hpf Normal None Seen [facility] Comment on above: Order Comment: CLEAN CATCH Performed By: #### L 400.0001 ####[facility] [address] [place] [address] EPI,SQUAMOUS 0-5 SEEN Normal 0-5 [facility] Comment on above: Order Comment: CLEAN CATCH Performed By: #### L 400.0001 ####[facility] [address] [facility] [address] RBC 25-50 SEEN Normal 0-5 [facility] Comment on above: Order Comment: CLEAN CATCH Performed By: #### L 400.0001 ####[facility] [address] [facility] [address] WBC >100 SEEN Normal 0-5 [facility] Comment on above: Order Comment: CLEAN CATCH Performed By: #### L 400.0001 ####[facility] [address] [facility] [address] Mucus Ql (Urine sed) 0 SEEN Normal [facility] Comment on above: Order Comment: CLEAN CATCH Performed By: #### L 400.0001 ####[facility] [address] [facility] [id number] Urine clarityOrdered By: Brad Gomez on 01-05-2025 Clarity (U) Cloudy Clear [facility] Urine color determinationOrd ered By: Vinay Gomez on 01-05-2025 Color (U) Yellow Yellow [facility] Urine cultureOrdered By: Brad Gomez on 01-05-2025 Bacteria identified Cx Nom (U) Morganella morganii sp morgani Abnormal [facility] Urine glucose detectionOrder ed By: Vinay Gomez on 01-05-2025 Glucose Ql (U) 50 mg/dl High Normal [facility] Urine leukocyte esterase det ection by dipstickOrdered By: Vinay Gomez on 01-05-2025 Leukocyte esterase Test strip Ql (U) 500 /ul High Negative [facility] Urine pHOrdered By: Vinay lima on 01-05-2025 pH (U) 8.0 [pH] 5.0 - 8.0 [facility] Urine sediment bacteria coun t by microscopy (number/high power field)Ordered By: Vinay Gomez on 01-05-2025 Bacteria LM.HPF (Urine sed) [#/Area] 1 /[HPF] None Seen [facility] Urine specific gravity measu rementOrdered By: Vinay Gomez on 01-05-2025 Specific gravity (U) [Rel density] 1.010 1.002-1.030 [facility] Urine urobilinogen measureme ntOrdered By: Vinay Gomez on 01-05-2025 Urobilinogen Ql (U) Normal mg/dl Normal [facility] White blood cell (WBC) count Ordered By: Vinay Gomez on 01-05-2025 WBC (Bld) [#/Vol] 3.6 10*3/uL Low 4.4-11.0 [facility] White blood cell countOrdere d By: Vinay Gomez on 01-05-2025 White blood cell count >100 SEEN /hpf 0-5 [facility] [id number] 12-24-2024 [id number] Patient Choice Patient Name: FRANKLIN BURTON Date of : 1945 Normal [facility] 12 Lead EKGon 12-08-2024 12 Lead EKG [facility] Cardiovascular Services [address] [place] [address] 12 Lead EKG 12/08/24 0148 MR#: [id number] Acct: [id number] Name: FRANKLIN BURTON Rep #: [id number] : 1945 79 From: Fawad Whittaker MD Attending Dr: Status: DEP ER Ordering Dr: Beau Cardenas DO Date: 12/08/24 Location: ED Sex: M C Admitted: Test Reason : SYNCOPE Blood Pressure : */* mmHG Vent. Rate : 88 BPM Atrial Rate : 88 BPM P-R Int : 148 ms QRS Dur : 74 ms QT Int : 366 ms P-R-T Axes : 1 8 36 degrees QTcB Int : 442 ms Sinus rhythm with occasional Premature ventricular complexes Otherwise normal ECG Confirmed by Fawad Whittaker ([id number]), state editor SHEFALI BRODY ([id number]) on 12/08/2024 1:49:40 PM Referred By: CONCEPCION Confirmed By: Fawad Whittaker 12/08/24 1349 Date Fawad Whittaker MD CC: Dr. Matilde Noguera MD; Beau Cardenas DO Signed Normal [facility] Absolute lymphocyte countOrd ered By: Beau Cardenas on 12-08-2024 Lymphocytes Auto (Unsp spec) [#/Vol] 0.42 10*3/uL Low 0.83-4.51 [facility] Absolute neutrophil countOrd ered By: Beau Cardenas on 12-08-2024 Neutrophils (Bld) [#/Vol] 5.6 10*3/uL 2.0-7.7 [facility] Anion gap in Serum or Plasma Ordered By: Beau Cardenas on 12-08-2024 Anion gap [Moles/Vol] 11 mmol/L 5-15 [facility] Automated lymphocyte count a s percentage of total leukocytesOrdered By: Beau Cardenas on 12-08-2024 Lymphocytes/100 WBC Auto (Unsp spec) 6.5 % Low 19-41 [facility] BUN/creatinine ratioOrdered By: Beau Cardenas on 12-08-2024 Urea nitrogen/Creatinine [Mass ratio] 5.1 mg/mg Low 10- [facility] Basic Metabolic Profile (BMP )on 12-08-2024 BUN/CRE 5.1 RATIO Low 03-07 [facility] Comment on above: Performed By: #### L 100.0100, L500.2500, L501.5200, L501.2300 ####[facility] [address] [place], [address] Calcium [Mass/Vol] 9.2 mg/dL Normal 7.6-11.0 [facility] Comment on above: Performed By: #### L 100.0100, L500.2500, L501.5200, L501.2300 ####[facility] [address] [place], [address] Chloride [Moles/Vol] 97 mmol/L Low 98-108 [facility] Comment on above: Performed By: #### L 100.0100, L500.2500, L501.5200, L501.2300 ####[facility] [address] [place], [address] CO2 [Moles/Vol] 25.8 mmol/L Normal 21.0-32.0 [facility] Comment on above: Performed By: #### L 100.0100, L500.2500, L501.5200, L501.2300 ####[facility] [address] [place], [address] Creatinine [Mass/Vol] 3.95 mg/dL High 0.70-1.20 [facility] Comment on above: Performed By: #### L 100.0100, L500.2500, L501.5200, L501.2300 ####[facility] [address] [place], [address] ECRCL 17.61 ml/min Low 50-250 [facility] Comment on above: Performed By: #### L 100.0100, L500.2500, L501.5200, L501.2300 ####[facility] [address] [place], [address] GAP 11 Normal 5-15 [facility] Comment on above: Performed By: #### L 100.0100, L500.2500, L501.5200, L501.2300 ####[facility] [address] [place], [address] GFR/1.73 sq M.predicted among non-blacks MDRD (S/P/Bld) [Vol rate/Area] 15 mL/min/{1.73_m2} Low >60 [facility] Comment on above: Result Comment: mL/m in/1.73m2 CKD-EPI Creatinine Equation (2020) Performed By: #### L 100.0100, L500.2500, L501.5200, L501.2300 ####[facility] [address] [place], [address] Glucose [Mass/Vol] 139 mg/dL High 70-99 [facility] Comment on above: Performed By: #### L 100.0100, L500.2500, L501.5200, L501.2300 ####[facility] [address] [place], [address] Potassium [Moles/Vol] 4.2 mmol/L Normal 3.3-5.1 [facility] Comment on above: Performed By: #### L 100.0100, L500.2500, L501.5200, L501.2300 ####[facility] [address] [place], [address] Sodium [Moles/Vol] 134 mmol/L Normal 133-145 [facility] Comment on above: Performed By: #### L 100.0100, L500.2500, L501.5200, L501.2300 ####[facility] [address] [place], [address] Urea nitrogen [Mass/Vol] 20 mg/dL High 4-19 [facility] Comment on above: Performed By: #### L 100.0100, L500.2500, L501.5200, L501.2300 ####[facility] [address] [place], [place], [address] Basophil percentageOrdered B y: Beau Cardenas on 12-08-2024 Basophils/100 WBC (Bld) 0.8 % 0-1 [facility] Bilirubin Test strip Ql (U)O rdered By: Beau Villasenordaniel on 12-08-2024 Bilirubin Ql (U) Negative Negative [facility] Brain/Head without Contrasto n 12-08-2024 Brain/Head without Contrast [facility] Imaging Services [address] [place], [place] [address] Brain/Head without Contrast MR#: [id number] Acct: [id number] Name: FRANKLIN BURTON Rep #: [id number] : 1945 M 79 From: Jerod Lagunas MD PCP: Dr. Matilde Noguera MD Status: PRE ER Study: Brain/Head without Contrast Date of Exam: 11/17 08/10 Exam# [id number] Ordering Dr: Beau Cardenas DO PROCEDURE: BRAIN/HEAD WITHOUT CONTRAST 12/08/2024 REASON FOR EXAM: SYNCOPE TECHNIQUE: BRAIN/HEAD WITHOUT CONTRAST Coronal and Sagittal reconstruction series were provided. One or more dose reduction techniques were used (e.g., Automated exposure control, adjustment of the mA and/or kV according to patient size, use of iterative reconstruction technique. RADIATION DOSE SUMMARY: CTDlvol: 45 mGy DLP: 847 mGycm COMPARISON: 02/27/2023 FINDINGS: Mild atrophy. Arterial calcifications. 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 Mild white matter change. No acute abnormal brain densities. No intracranial hemorrhage. No hydrocephalus or midline shift. Bilateral lens extraction. Clear sinuses. CT/Brain/Head without Contrast IMPRESSION: No acute intracranial findings Reading Location: [place] [address] CC: Dr. Matilde Noguera MD; Beau Cardenas DO Supervisor [employer] Room: Signed Normal [facility] CBC W/Diff, Automatedon 11-17 Absolute Lymph 0.42 X10 3/uL Low 0.83-4.51 [facility] Comment on above: Performed By: #### L 100.0100, L500.2500, L501.5200, L501.2300 ####[facility] [address] [place], [address] Absolute Neut 5.6 X10 3/uL Normal 2.0-7.7 [facility] Comment on above: Performed By: #### L 100.0100, L500.2500, L501.5200, L501.2300 ####[facility] [address] [place], [address] Basophils/100 WBC (Bld) 0.8 % Normal 0-1 [facility] Comment on above: Performed By: #### L 100.0100, L500.2500, L501.5200, L501.2300 ####[facility] [address] [place], [address] Eosinophils/100 WBC (Bld) 1.1 % Normal 0-5 [facility] Comment on above: Performed By: #### L 100.0100, L500.2500, L501.5200, L501.2300 ####[facility] [address] [place], [address] Erythrocyte distribution width (RBC) [Ratio] 13.5 % Normal 11.6-14.6 [facility] Comment on above: Performed By: #### L 100.0100, L500.2500, L501.5200, L501.2300 ####[facility] [address] [place], [address] Hematocrit (Bld) [Volume fraction] 33.2 % Low 40-54 [facility] Comment on above: Performed By: #### L 100.0100, L500.2500, L501.5200, L501.2300 ####[facility] [address] [place], [address] Hemoglobin (Bld) [Mass/Vol] 10.8 g/dL Low 13.0-16.5 [facility] Comment on above: Performed By: #### L 100.0100, L500.2500, L501.5200, L501.2300 ####[facility] [address] [place], [address] IG% 0.600 Normal 0.0-0.9 [facility] Comment on above: Result Comment: IG% - Immature Granulocytes (promyelocytes, myelocytes and metamyelocytes) > 1% indicates that a LEFT SHIFT is Present. Performed By: #### L 100.0100, L500.2500, L501.5200, L501.2300 ####[facility] [address] [place], [address] Lymphocytes/100 WBC (Bld) 6.5 % Low 19-41 [facility] Comment on above: Performed By: #### L 100.0100, L500.2500, L501.5200, L501.2300 ####[facility] [address] [place], [address] MCH (RBC) [Entitic mass] 30.3 pg Normal 27.0-32.0 [facility] Comment on above: Performed By: #### L 100.0100, L500.2500, L501.5200, L501.2300 ####[facility] [address] [place], [address] MCHC (RBC) [Mass/Vol] 32.5 g/dL Normal 32-36 [facility] Comment on above: Performed By: #### L 100.0100, L500.2500, L501.5200, L501.2300 ####[facility] [address] [place], [address] MCV (RBC) [Entitic vol] 93.3 fL Normal 80-94 [facility] Comment on above: Performed By: #### L 100.0100, L500.2500, L501.5200, L501.2300 ####[facility] [address] [place], [address] Monocytes/100 WBC (Bld) 4.3 % Normal 0-10 [facility] Comment on above: Performed By: #### L 100.0100, L500.2500, L501.5200, L501.2300 ####[facility] [address] [place], [address] Neutrophils/100 WBC (Bld) 86.7 % High 47-70 [facility] Comment on above: Performed By: #### L 100.0100, L500.2500, L501.5200, L501.2300 ####[facility] [address] [place], [address] Nucleated RBC (Bld) [#/Vol] 0 10*3/uL Normal 0-5 [facility] Comment on above: Performed By: #### L 100.0100, L500.2500, L501.5200, L501.2300 ####[facility] [address] [place], [address] Platelet mean volume (Bld) [Entitic vol] 9.7 fL Normal 6.2-12.0 [facility] Comment on above: Performed By: #### L 100.0100, L500.2500, L501.5200, L501.2300 ####[facility] [address] [place], [address] Platelets (Bld) [#/Vol] 167 10*3/uL Normal 150-450 [facility] Comment on above: Performed By: #### L 100.0100, L500.2500, L501.5200, L501.2300 ####[facility] [address] [place], [address] RBC (Bld) [#/Vol] 3.56 10*6/uL Low 4.6-6.2 [facility] Comment on above: Performed By: #### L 100.0100, L500.2500, L501.5200, L501.2300 ####[facility] [address] [place], [address] RDW SD 46.2 fl High 35.1-43.9 [facility] Comment on above: Performed By: #### L 100.0100, L500.2500, L501.5200, L501.2300 ####[facility] [address] [place], [address] WBC (Bld) [#/Vol] 6.5 10*3/uL Normal 4.4-11.0 [facility] Comment on above: Performed By: #### L 100.0100, L500.2500, L501.5200, L501.2300 ####[facility] [address] [place], [address] Carbon dioxide, total [Moles /volume] in Central venous bloodOrdered By: Beau Cardenas on 12-08-2024 CO2 [Moles/Vol] 25.8 mmol/L 21.0-32.0 [facility] Chest 1 View (Portable)on Chest 1 View (Portable) [facility] Imaging Services [address] [place] [address] Chest 1 View (Portable) MR#: [id number] Acct: [id number] Name: FRANKLIN BURTON Rep #: [id number] : 1945 M 79 From: Jerod Lagunas MD PCP: Dr. Matilde Noguera MD Status: PRE ER Study: Chest 1 View (Portable) Date of Exam: 12/08/24 Exam# [id number] Ordering Dr: Beau Cardenas DO PROCEDURE: CHEST 1 VIEW (PORTABLE) 12/08/2024 REASON FOR EXAM: WEAKNESS TECHNIQUE: Frontal view of the chest. COMPARISON: 04/19/2024 FINDINGS: Normal heart size. Slightly under aerated lung bases. Faint left mid and lower lung zone airspace opacity. Otherwise, no consolidation effusion or pneumothorax. RAD/Chest 1 View (Portable) IMPRESSION: There is faint left mid and lower lung zone airspace opacity, atelectasis/consolidat ion. Recommend follow up imaging. Reading Location: [place] [address] CC: Dr. Matilde Noguera MD; Beau Cardenas DO Supervisor [employer] Room: Signed Normal [facility] Chloride assayOrdered By: Marina Cardenas on 12-08-2024 Chloride [Moles/Vol] 97 mmol/L Low 98-108 [facility] Emergency Department Summary on 12-08-2024 Emergency Department Summary [facility] Medical Records Department [address] [place] [address] Emergency Department Summary 12/08/24 MR#: [id number] Acct: [id number] Name: FRANKLIN BURTON Rep #: [id number] : 1945 79 From: Beau Cardenas DO PCP: Dr. Matilde Noguera MD Status:DEP ER Location: ED HPI History of Present Illness Chief Complaint: General Illness Informant: patient and spouse/S.O. Narrative Narrative: Patient is a 79-year-old male with past medical history of hypertension chronic renal failure on dialysis restless leg syndrome and BPH. The patient receives dialysis on Friday and Friday and did so on Friday as he normally would. According to patient and he has been very fatigued/lethargic this evening. He states that there has been no fever or chills and no associated abdominal pain nausea vomiting or diarrhea. He states he still urinates and has been doing so without any type of dysuria. However this evening the states she found him sitting on the toilet fully clothed and slow to respond. Secondary to this he was brought in for evaluation. [facility] Medical History Dialysis patient Wears hearing aid [...] handicap placard #1 ea 03/12/23 Unknown Rx triamcinolone acetonide 0.1 % 1 applic topical DAILY PRN 4 Unknown Rx topical ointment rash/itching #15 grams mirtazapine 15 mg tablet 15 mg PO QHS #90 tabs 06/08/24 Unk nown Rx omeprazole 40 mg capsule,delayed 40 mg PO DAILY stomach #90 caps Unknown Rx release metoprolol tartrate 25 mg tablet 25 mg PO DAILY BP #90 tabs 5 Unknown Rx melatonin 3 mg capsule 3 mg PO HS PRN sleep #30 caps 09/17 02/10 Unknown Rx magna life topical 10/15/24 Unknown History tamsulosin 0.4 mg capsule 0.8 mg (2 x 0.4 mg) PO QDAY #60 Unknown Rx caps gabapentin 100 mg capsule 300 mg PO QHS 12/07/24 Unknown His tory ropinirole 0.25 mg tablet 0.25 mg PO QHS #30 tabs 12/07/24 U nknown Rx Allergy/AdvReac Type Severity Reaction Status Date / Time finasteride Allergy Intermediate mastodynia Verified 12/08/24 01:20 aspirin AdvReac Severe cannot Verified 12/08/24 01:20 take d/t Zach's Vasculitis Family History Mother [...] house 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 Status: Former smoker quit date: 07/26/81 pack-years: 19 Electronic Cigarette Use: not used alcohol intake: never substance use type: does not use what type of physical activity do you participate in: none seatbelt use: always do you feel safe at home: Yes ROS ROS ED Constitutional Constitutional ED: Denies chills or fever(s) Eyes Eyes: Denies change in vision ENT ENT ED: Denies sore throat Cardiovascular Cardiovascular: Denies chest pain or palpitations Respiratory/Chest Respiratory/Chest: Denies cough or dyspnea Gastrointestinal Gastrointestinal: Denies abdominal pain, diarrhea, nausea or vomiting Genitourinary Genitourinary ED: Denies dysuria Musculoskeletal Musculoskeletal: Denies myalgias (more content not included)... Normal [facility] Eosinophil percentageOrdered By: Beau Cardenas on 12-08-2024 Eosinophils/100 WBC (Bld) 1.1 % 0-5 [facility] Erythrocyte distribution wid th ratioOrdered By: Beau Cardenas on 12-08-2024 Erythrocyte distribution width (RBC) [Ratio] 13.5 % 11.6-14.6 [facility] Erythrocyte distribution wid th standard deviationOrdered By: Beau Cardenas on 12-08-2024 Erythrocyte distribution width (RBC) [Ratio] 46.2 fl High 35.1-43.9 [facility] Glomerular filtration rate ( GFR) estimation/1.73 sq m using serum, plasma, or whole bOrdered By: Beau Cardenas on 12-08-2024 GFR/1.73 sq M.predicted among non-blacks MDRD (S/P/Bld) [Vol rate/Area] 15 mL/min/{1.73_m2} Low >60 [facility] Comment on above: mL/min/1.73m2 CKD-EP I Creatinine Equation (2020) Hematocrit Auto (Bld) [Volum e fraction]Ordered By: Beau Cardenas on 12-08-2024 Hematocrit (Bld) [Volume fraction] 33.2 % Low 40-54 [facility] Hemoglobin measurementOrdere d By: Beau Cardenas on 12-08-2024 Hemoglobin (Bld) [Mass/Vol] 10.8 g/dL Low 13.0-16.5 [facility] Immature granulocytes/100 WB C Auto (Bld)Ordered By: Beau Cardenas on 12-08-2024 Immature granulocytes/100 WBC (Bld) 0.600 % 0.0-0.9 [facility] Comment on above: IG% - Immature Granu locytes (promyelocytes, myelocytes and metamyelocytes) > 1% indicates that a LEFT SHIFT is Present. Ketones Test strip Ql (U)Ord ered By: Beau Cardenas on 12-08-2024 Ketones Ql (U) Negative Negative [facility] MCV (mean corpuscular volume ) determinationOrdered By: Beau Cardenas on 12-08-2024 MCV (RBC) [Entitic vol] 93.3 fL 80-94 [facility] Magnesiumon 12-08-2024 Magnesium [Mass/Vol] 2.0 mg/dL Normal 1.5-2.2 [facility] Comment on above: Performed By: #### L 100.0100, L500.2500, L501.5200, L501.2300 ####[facility] [address] [place], [place], [id number] Magnesium measurement (mass/ volume)Ordered By: Beau Cardenas on 12-08-2024 Magnesium (Unsp spec) [Mass/Vol] 2.0 mg/dL 1.5-2.2 [facility] Mean corpuscular hemoglobin (MCH) determinationOrdered By: Beau Cardenas on 12-08-2024 MCH (RBC) [Entitic mass] 30.3 pg 27.0-32.0 [facility] Mean corpuscular hemoglobin concentration (MCHC) determinationOrdered By: Beau Cardenas on 12-08-2024 MCHC (RBC) [Mass/Vol] 32.5 g/dL 32-36 [facility] Mean platelet volume determi nationOrdered By: Beau Cardenas on 12-08-2024 Platelet mean volume (Bld) [Entitic vol] 9.7 fL 6.2-12.0 [facility] Microscopic analysis of urin e for red blood cells (RBC)Ordered By: Beau Cardenas on 12-08-2024 Microscopic analysis of urine for red blood cells (RBC) 5-10 SEEN /hpf 0-5 [facility] Monocyte percentageOrdered B y: Beau Cardenas on 12-08-2024 Monocytes/100 WBC (Bld) 4.3 % 0-10 [facility] Mucus LM Ql (Urine sed)Order ed By: Beau Cardenas on 12-08-2024 Mucus Ql (Urine sed) 0 SEEN /hpf [facility] Neutrophil percentageOrdered By: Beau Cardenas on 12-08-2024 Neutrophils/100 WBC (Bld) 86.7 % High 47-70 [facility] Nitrite Test strip Ql (U)Ord ered By: Beau Cardenas on 12-08-2024 Nitrite Ql (U) Negative Negative [facility] Nucleated red blood cell per centageOrdered By: Beau Cardenas on 12-08-2024 Nucleated RBC/100 WBC (Bld) [Ratio] 0 % 0-5 [facility] Phosphoruson 12-08-2024 Phosphate [Mass/Vol] 2.8 mg/dL Normal 2.7-4.5 [facility] Comment on above: Performed By: #### L 100.0100, L500.2500, L501.5200, L501.2300 ####[facility] [address] [place], [place], [id number] Platelet countOrdered By: Marina Cardenas on 12-08-2024 Platelets (Bld) [#/Vol] 167 10*3/uL 150-450 [facility] Potassium measurement (mass/ volume)Ordered By: Beau Cardenas on 12-08-2024 Potassium (Unsp spec) [Mass/Vol] 4.2 mmol/L 3.3-5.1 [facility] Protein Test strip Ql (U)Ord ered By: Beau Cardenas on 12-08-2024 Protein Ql (U) 30 mg/dl High Negative [facility] RBC Auto (Bld) [#/Vol]Ordere d By: Beau Cardenas on 12-08-2024 RBC (Bld) [#/Vol] 3.56 10*6/uL Low 4.6-6.2 [facility] Serum creatinine measurement (mass/volume)Ordered By: Beau Cardenas on 12-08-2024 Creatinine [Mass/Vol] 3.95 mg/dL High 0.70-1.20 [facility] Serum glucose measurement (m ass/volume)Ordered By: Beau Cardenas on 12-08-2024 Glucose [Mass/Vol] 139 mg/dL High 70-99 [facility] Serum or plasma calcium satish urement (mass/volume)Ordered By: Beau Cardenas on 12-08-2024 Calcium [Mass/Vol] 9.2 mg/dL 7.6-11.0 [facility] Serum or plasma urea nitroge n measurement (mass/volume)Ordered By: Beau Cardenas on 12-08-2024 Urea nitrogen [Mass/Vol] 20 mg/dL High 4-19 [facility] Sodium levelOrdered By: Reynaldo Cardenas on 12-08-2024 Sodium [Moles/Vol] 134 mmol/L 133-145 [facility] Squamous epithelial cells de tection in urine sediment by light microscopyOrdered By: Beau Cardenas on 12-08-2024 Epithelial cells.squamous LM Ql (Urine sed) 0 SEEN /hpf 0-5 [facility] Urinalysis, Completeon 12-08 BACTERIA RARE Normal None Seen [facility] Comment on above: Order Comment: VENKATESH DIOROR TO SPECIFY Performed By: #### L 400.0001 #### [facility] [address] [place], [place], [id number] RBC 5-10 SEEN Normal 0-5 [facility] Comment on above: Order Comment: VENKATESH CTOR TO SPECIFY Performed By: #### L 400.0001 #### [facility] [address] [place], [address] WBC 50-100 SEEN Normal 0-5 [facility] Comment on above: Order Comment: VENKATESH CTOR TO SPECIFY Performed By: #### L 400.0001 #### [facility] [address] [place], [address] BILIRUBIN URINE Negative Normal Negative [facility] Comment on above: Order Comment: VENKATESH CTOR TO SPECIFY Performed By: #### L 400.0001 #### [facility] [address] [place], [address] Clarity (U) Clear Normal Clear [facility] Comment on above: Order Comment: VENKATESH CTOR TO SPECIFY Performed By: #### L 400.0001 #### [facility] [address] [place], [address] Color (U) Yellow Normal Yellow [facility] Comment on above: Order Comment: VENKATESH CTOR TO SPECIFY Performed By: #### L 400.0001 #### [facility] [address] [place], [address] GLUCOSE, UR 50 mg/dl Abnormal Normal [facility] Comment on above: Order Comment: VENKATESH CTOR TO SPECIFY Performed By: #### L 400.0001 #### [facility] [address] [place], [address] KETONE UR Negative Normal Negative [facility] Comment on above: Order Comment: VENKATESH CTOR TO SPECIFY Performed By: #### L 400.0001 #### [facility] [address] [place], [address] LEUK ESTERASE 100 /ul Abnormal Negative [facility] Comment on above: Order Comment: VENKATESH CTOR TO SPECIFY Performed By: #### L 400.0001 #### [facility] [address] [place], [address] Nitrite Ql (U) Negative Normal Negative [facility] Comment on above: Order Comment: VENKATESH CTOR TO SPECIFY Performed By: #### L 400.0001 #### [facility] [address] [place], [address] OCCULT BLOOD-UR 10 /ul Abnormal Negative [facility] Comment on above: Order Comment: VENKATESH CTOR TO SPECIFY Performed By: #### L 400.0001 #### [facility] [address] [place], [address] pH UR 7.0 Normal 5.0 - 8.0 [facility] Comment on above: Order Comment: VENKATESH CTOR TO SPECIFY Performed By: #### L 400.0001 #### [facility] [address] [place], [address] PROT DIPSTX 30 mg/dl Abnormal Negative [facility] Comment on above: Order Comment: VENKATESH CTOR TO SPECIFY Performed By: #### L 400.0001 #### [facility] [address] [place], [address] SP.GR. DIPSTX 1.010 Normal 1.002-1.030 [facility] Comment on above: Order Comment: VENKATESH CTOR TO SPECIFY Performed By: #### L 400.0001 #### [facility] [address] [place], [address] UROBILI Normal Normal Normal [facility] Comment on above: Order Comment: VENKATESH CTOR TO SPECIFY Performed By: #### L 400.0001 #### [facility] [address] [place], [address] EPI,SQUAMOUS 0 SEEN Normal 0-5 [facility] Comment on above: Order Comment: VENKATESH CTOR TO SPECIFY Performed By: #### L 400.0001 #### [facility] [address] [place], [address] Mucus Ql (Urine sed) 0 SEEN Normal [facility] Comment on above: Order Comment: VENKATESH CTOR TO SPECIFY Performed By: #### L 400.0001 #### [facility] [address] [place], [address] Urine clarityOrdered By: Vicente Cardenas on 12-08-2024 Clarity (U) Clear Clear [facility] Urine color determinationOrd ered By: Beau Cardenas on 12-08-2024 Color (U) Yellow Yellow [facility] Urine glucose detectionOrder ed By: Beau Cardenas on 12-08-2024 Glucose Ql (U) 50 mg/dl High Normal [facility] Urine leukocyte esterase det ection by dipstickOrdered By: Beau Cardenas on 12-08-2024 Leukocyte esterase Test strip Ql (U) 100 /ul High Negative [facility] Urine pHOrdered By: Beau vitale on 12-08-2024 pH (U) 7.0 [pH] 5.0 - 8.0 [facility] Urine sediment bacteria coun t by microscopy (number/high power field)Ordered By: Beau Cardenas on 12-08-2024 Bacteria LM.HPF (Urine sed) [#/Area] RARE /hpf None Seen [facility] Urine specific gravity measu rementOrdered By: Beau Cardenas on 12-08-2024 Specific gravity (U) [Rel density] 1.010 1.002-1.030 [facility] Urine urobilinogen measureme ntOrdered By: Beau Cardenas on 12-08-2024 Urobilinogen Ql (U) Normal mg/dl Normal [facility] White blood cell (WBC) count Ordered By: Beau Cardenas on 12-08-2024 WBC (Bld) [#/Vol] 6.5 10*3/uL 4.4-11.0 [facility] White blood cell countOrdere d By: Beau Cardenas on 12-08-2024 White blood cell count 50-100 SEEN /hpf 0-5 [facility] Internal Medicine Office Vis iton 12-02-2024 Internal Medicine Office Visit [facility] [address] [place] [address] [place] [address] OFFICE VISIT Date of Service: 12/07/24 MR#: [id number] Acct: [id number] Name: FRANKLIN BURTON Rep #: [id number] : 1945 Provider: Dr. Matilde hernandez MD Age/Sex: 79/M Location: [facility] Status: Signed Intake Vital Signs 09/07/24 08:59 10/15/24 13:17 12/07/24 10:12 Height 5 ft 8 in 5 ft 8 in 5 ft 8 in Weight: 219 lb BMI 33.3 BP 126/68 H Blood Pressure Location Rt brachial Position Sitting Respiration 16 Pulse 54 L Pulse Source Monitor Temp 98.2 F Temp Source Temporal Pulse Oximetry (%) 99 Oxygen Delivery Method room air Intake Visit Reasons: [facility] [employer] Required: No Is patient in pain?: Yes (neuropathy feet) Pain scale (1-10): 5 Allergies finasteride Allergy (Intermediate, Verified 12/07/24 09:59) mastodynia aspirin Adverse Reaction (Severe, Verified 12/07/24 09:59) cannot take d/t Zach's Vasculitis Medications ???Medication [...] DAILY stomach #90 caps 10/15/24 Rx release metoprolol tartrate 25 mg tablet 25 mg PO DAILY BP #90 tabs 09/13/2 5 10/15/24 Rx melatonin 3 mg capsule 3 mg PO HS PRN sleep #30 caps 09/1710/15/24 Rx magna life topical 10/15/24 History tamsulosin 0.4 mg capsule 0.8 mg (2 x 0.4 mg) PO QDAY #60 Rx caps gabapentin 100 mg capsule 300 mg PO QHS 12/07/24 12/07/24 Hi story ropinirole 0.25 mg tablet 0.25 mg PO QHS #30 tabs 12/07/24 0 12/07/24 Rx Have you fallen in the past year?: No Nurse's Note: Pt was in [facility] f/u pt states he went in for R hip pain and stroke sx's. Has OT coming today. Pt states there was med changes but uncertain of what they were. Uncertain of dx's. Unable to obtain quickly due to 91 pages. Pt states pain is better but neuopathy is always present and unchanged. 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 He is up to date on his routine blood work.??? He is up to date on his screening and isn't due for any immunizations.??? The patient doesn't smoke and does not need refills today.??? He reports he is eating healthy.??? He reports his activity level has been good. 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 He follows with nephrology. He is current (more content not included)... Normal [facility] 25-hydroxyvitamin D3 [Mass/V ol]on 11-30-2024 Interpretation and review of laboratory results Normal [facility] Target concentration : 30 - 40 ng/mL; toxicity seen at concentrations >100 ng/mL Less than 20 ng/mL: Indicative of Vit D deficiency Test performed by [employer], measuring Total Vitamin D, not individual fractions. [facility] 30on 11-30-2024 30 Problem: Knowledge Deficit Goal: Patient/family/caregiv er demonstrates understanding of disease process, treatment plan, [...] is improving Outcome: Adequate for Discharge Normal [facility] 30 Problem: Knowledge Deficit Goal: Patient/family/caregiv er demonstrates understanding of disease process, treatment plan, [...] of aspiration is minimized Outcome: Progressing Normal [facility] [id number] 11-30-2024 [phone] [facility] [address] [facility] [phone] [id number] Patient/Family Choice [facility] [phone] Next Site of Care Admission Date: 11/25/2024 05:45 AM Patient Name: FRANKLIN BURTON Location: [address] [id number] A Date of : 1945 ---- Placement Information ---- Referral Type:Home Health Care Services - [facility] Referral ID:[id number] [facility]:[address] Address 2: City:[place] Selection Factors:Patient/Family Choice State:[place] Normal [facility] Bacteria identified Cx Nom ( Bld)on 11-30-2024 Interpretation and review of laboratory results Normal [facility] Blood Collection Sit e: Right Antecubital [facility] Interpretation and review of laboratory results Normal [facility] Blood Collection Sit e: Left Forearm [facility] CBC (HEMOGRAM)on 11-30-2024 Erythrocyte distribution width (RBC) [Ratio] 13.0 % Normal 11.5-15.0 [facility] Comment on above: Performed By: #### L AB294 ####Regulatory Internship: LYNDSEY NICOLE ([id number])[facility])[address] [place] [address] Hematocrit (Bld) [Volume fraction] 36.0 % Low 40.0-52.0 [facility] Comment on above: Performed By: #### L AB294 ####Regulatory Internship: LYNDSEY NICOLE ([id number])[address] Hemoglobin (Bld) [Mass/Vol] 12.0 g/dL Low 13.0-18.0 [facility] Comment on above: Performed By: #### L [id number] ####Regulatory Internship: LYNDSEY NICOLE ([id number])[facility])[address] [place] [address] MCH (RBC) [Entitic mass] 30.8 pg Normal 26.0-34.0 [facility] Comment on above: Performed By: #### L [id number] ####Regulatory Internship: LYNDSEY NICOLE ([id number])[facility])[address] [place] [address] MCHC 33.3 % Normal 30.5-36.0 [facility] Comment on above: Performed By: #### L [id number] ####Regulatory Internship: LYNDSEY NICOLE ([id number])[address] MCV (RBC) [Entitic vol] 92.5 fL Normal 77.0-99.0 [facility] Comment on above: Performed By: #### L [id number] ####Regulatory Internship: LYNDSEY NICOLE ([id number])[facility])[address] [place] [address] Platelet mean volume (Bld) [Entitic vol] 9.5 fL Normal 9.0-12.7 [facility] Comment on above: Performed By: #### L [id number] ####Regulatory Internship: LYNDSEY NICOLE ([id number])[facility] ([facility])[address] [place] [address] Platelets (Bld) [#/Vol] 152 10*3/uL Normal 140-440 [facility] Comment on above: Performed By: #### L [id number] ####Regulatory Internship: LYNDSEY NICOLE ([id number])[facility])[address] [place] [address] RBC (Bld) [#/Vol] 3.89 10*6/uL Low 4.40-5.90 [facility] Comment on above: Performed By: #### L [id number] ####Regulatory Internship: LYNDSEY NICOLE ([id number])[facility])[address] [place] [address] WBC (Bld) [#/Vol] 5.2 10*3/uL Normal 3.6-10.7 [facility] Comment on above: Performed By: #### L [id number] ####Regulatory Internship: LYNDSEY NICOLE ([id number])[facility])[address] [place] [address] CBC panel Auto (Bld)on 11-30 Erythrocyte distribution width (RBC) [Ratio] 13 % 11.5 - 15.0 % [facility] Hematocrit (Bld) [Volume fraction] 36 % Low 40.0 - 52.0 % [facility] Hemoglobin (Bld) [Mass/Vol] 12 g/dL Low 13.0 - 18.0 g/dL [facility] Interpretation and review of laboratory results Abnormal [facility] MCH (RBC) [Entitic mass] 30.8 pg 26.0 - 34.0 pg [facility] MCHC (RBC) [Mass/Vol] 33.3 % 30.5 - 36.0 % [facility] MCV (RBC) [Entitic vol] 92.5 fL 77.0 - 99.0 fL [facility] Platelet mean volume (Bld) [Entitic vol] 9.5 fL 9.0 - 12.7 fL [facility] Platelets (Bld) [#/Vol] 152 10*3/uL 140 - 440 10*3/uL [facility] RBC (Bld) [#/Vol] 3.89 10*6/uL Low 4.40 - 5.9 0 10*6/uL [facility] WBC (Bld) [#/Vol] 5.2 10*3/uL 3.6 - 10.7 10*3/uL [facility] COMPREHENSIVE METABOLIC PANE Jase 11-30-2024 Albumin [Mass/Vol] 3.4 g/dL Normal 3.4-4.8 [facility] Comment on above: Performed By: #### L AB103, [id number], LAB17, DAM034 ####Regulatory Internship: LYNDSEY NICOLE ([id number])[facility] ([facility])[address] [place] [address] ALP [Catalytic activity/Vol] 105 U/L Normal 40-150 [facility] Comment on above: Performed By: #### L AB103, [id number], LAB17, FLG268 ####Regulatory Internship: LYNDSEY NICOLE ([id number])[facility] ([facility])[address] [place] [address] ALT [Catalytic activity/Vol] 28 U/L Normal <40 [facility] Comment on above: Performed By: #### L AB103, [id number], LAB17, GYR644 ####Regulatory Internship: LYNDSEY NICOLE ([id number])[facility] ([facility])[address] [place] [address] Anion gap [Moles/Vol] 5 mmol/L Normal 3-13 [facility] Comment on above: Performed By: #### L AB103, ZEN415, LAB17, WSZ226 ####Regulatory Internship: LYNDSEY NICOLE ([id number])[facility])[address] AST [Catalytic activity/Vol] 33 U/L Normal <34 [facility] Comment on above: Performed By: #### L AB103, WCR635, LAB17, MWZ979 ####Regulatory Internship: LYNDSEY NICOLE ([id number])[facility] [place] [address] Bilirubin [Mass/Vol] 0.9 mg/dL Normal <1.2 [facility] Comment on above: Performed By: #### L AB103, MOZ077, LAB17, FBW313 ####Regulatory Internship: LYNDSEY NICOLE ([id number])[facility] ([facility])[address] [place] [address] Calcium [Mass/Vol] 9.5 mg/dL Normal 8.8-10.0 [facility] Comment on above: Performed By: #### L AB103, WTD239, LAB17, VLY034 ####Regulatory Internship: LYNDSEY NICOLE ([id number])[facility] [place] [address] Chloride [Moles/Vol] 105 mmol/L Normal 98-107 [facility] Comment on above: Performed By: #### L AB103, GQM644, LAB17, GHW920 ####Regulatory Internship: LYNDSEY NICOLE ([id number])[facility] [place] [address] CO2 [Moles/Vol] 25 mmol/L Normal 23-31 [facility] Comment on above: Performed By: #### L AB103, UTV814, LAB17, QPS727 ####Regulatory Internship: LYNDSEY NICOLE ([id number])[facility] [place] [address] [place] Creatinine [Mass/Vol] 2.91 mg/dL High 0.72-1.25 [facility] Comment on above: Performed By: #### L AB103, QUF763, LAB17, RVE500 ####Regulatory Internship: LYNDSEY NICOLE ([id number])[facility] ([facility] GLOMERULAR FILTRATION RATE ML/MIN/1.73 SQ M.PREDICTED 21.4 mL/min/1.73m*2 Low >60.0 [facility] Comment on above: Result Comment: Calc ulation based on the Chronic Kidney Disease Epidemiology Collaboration (CKD-EPI) equation refit without adjustment for race Performed By: #### L AB103, ZLY910, LAB17, LSY770 ####Regulatory Internship: LYNDSEY NICOLE ([id number])[facility])[address] [place] [address] Glucose [Mass/Vol] 108 mg/dL Normal 82-115 [facility] Comment on above: Performed By: #### L AB103, TPT202, LAB17, CWT198 ####Regulatory Internship: LYNDSEY NICOLE ([id number])[facility])[address] [place] [address] Potassium [Moles/Vol] 4.0 mmol/L Normal 3.5-5.1 [facility] Comment on above: Result Comment: [facility] potassium values may be up to 0.5 mmol/L lower than serum values. Performed By: #### L AB103, VJV535, LAB17, ECA494 ####Regulatory Internship: LYNDSEY NICOLE ([id number])[facility])[address] [place] [address] Protein [Mass/Vol] 6.6 g/dL Normal 6.4-8.3 [facility] Comment on above: Performed By: #### L AB103, TBM691, LAB17, ELZ937 ####Regulatory Internship: LYNDSEY NICOLE ([id number])[facility])[address] [place] [address] Sodium [Moles/Vol] 135 mmol/L Low 136-145 [facility] Comment on above: Performed By: #### L AB103, DSO385, LAB17, ELB839 ####Regulatory Internship: LYNDSEY NICOLE ([id number])[facility])[address] [place] [address] [place] Urea nitrogen [Mass/Vol] 14 mg/dL Normal 9-23 [facility] Comment on above: Performed By: #### L AB103, GAN771, LAB17, ERQ523 ####Regulatory Internship: LYNDSEY NICOLE ([id number])[facility] ([facility] Comprehensive metabolic 1998 panelOrdered By: Miah Mathews on 11-30-2024 Albumin [Mass/Vol] 3.4 g/dL 3.4 - 4.8 g/dL [facility] ALP [Catalytic activity/Vol] 105 U/L 40 - 150 U/L [facility] ALT [Catalytic activity/Vol] 28 U/L NINF - 40 U/L [facility] Anion gap [Moles/Vol] 5 mmol/L 3 - 13 mmol/L [facility] AST [Catalytic activity/Vol] 33 U/L NINF - 34 U/L [facility] Bilirubin [Mass/Vol] 0.9 mg/dL NINF - 1.2 mg/dL [facility] Calcium [Mass/Vol] 9.5 mg/dL 8.8 - 10. 0 mg/dL [facility] Chloride [Moles/Vol] 105 mmol/L 98 - 10 7 mmol/L [facility] CO2 [Moles/Vol] 25 mmol/L 23 - 31 mmol/L [facility] Creatinine [Mass/Vol] 2.91 mg/dL High 0.72 - 1.25 mg/dL [facility] GFR/1.73 sq M.predicted (S/P/Bld) [Vol rate/Area] 21.4 mL/min Low - PINF [facility] Comment on above: Calculation based on the Chronic Kidney Disease Epidemiology Collaboration (CKD-EPI) equation refit without adjustment for race Glucose [Mass/Vol] 108 mg/dL 82 - 115 mg/dL [facility] Interpretation and review of laboratory results Abnormal [facility] Potassium [Moles/Vol] 4 mmol/L 3.5 - 5.1 mmol/L [facility] Comment on above: Plasma potassium carson ues may be up to 0.5 mmol/L lower than serum values. Protein [Mass/Vol] 6.6 g/dL 6.4 - 8.3 g/dL [facility] Sodium [Moles/Vol] 135 mmol/L Low 136 - 145 mmol/L [facility] Urea nitrogen [Mass/Vol] 14 mg/dL 9 - 23 mg/dL [facility] - Chemistry and C hemistry - challengeon 11-30-2024 25-hydroxyvitamin D3 [Mass/Vol] 49 ng/mL 20 - 50 ng/mL [facility] Glucose [Mass/Vol] 106 mg/dL High 70 - 100 mg/dL [facility] Parathyrin.intact [Mass/Vol] 202.5 pg/mL High 22.6 - 120.3 pg/mL [facility] Magnesium [Mass/Vol] 2 mg/dL 1.6 - 2 .6 mg/dL [facility] - Microbiology an d Antimicrobial susceptibilityon 11-30-2024 Bacteria identified Cx Nom (Bld) No growth at 5 days [facility] Bacteria identified Cx Nom (Bld) No growth at 5 days [facility] MAGNESIUMon 11-30-2024 Magnesium [Mass/Vol] 2.0 mg/dL Normal 1.6-2.6 [facility] Comment on above: Result Comment: KP Martínez COMMENTS: Higher values can be expected in females during menses. Performed By: #### L AB103, OKX644, LAB17, MSO966 ####Regulatory Internship: LYNDSEY NICOLE ([id number])[address] Magnesium [Mass/Vol]on 11-30 Interpretation and review of laboratory results Normal [facility] Higher values can be expected in females during menses. [facility] No Panel Informationon 11-30 Interpretation and review of laboratory results Abnormal [facility] Performed by: [facility], [address] [place] [address] CLIA ID: [id number] [facility] PHOSPHORUSon 11-30-2024 Phosphate [Mass/Vol] 2.1 mg/dL Low 2.3-4.7 [facility] Comment on above: Performed By: #### L AB103, VYZ849, LAB17, CRX546 ####Regulatory Internship: LYNDSEY NICOLE ([id number])[facility] ([facility])[address] [place] [address] [place] PTH INTACTon 11-30-2024 PTH, INTACT 202.5 pg/mL High 22.6-120.3 [facility] Comment on above: Performed By: #### L AB103, LJC116, LAB17, OIG749 ####Regulatory Internship: LYNDSEY NICOLE ([id number])[facility] ([facility])[address] [place] [address] Parathyrin.intact [Mass/Vol] on 11-30-2024 Interpretation and review of laboratory results Abnormal [facility] Phosphate [Moles/Vol]on 11-16 Interpretation and review of laboratory results Abnormal [facility] Phosphate [Mass/Vol] 2.1 mg/dL Low 2.3 - 4 .7 mg/dL [facility] Progress Noteon 11-30-2024 Progress Note Speech-Language Pathology SPEECH LANGUAGE PATHOLOGY [facility] Dysphagia Treatment Note Patient Name: Franklin Burton Evaluation Date: 11/30/2024 Date of : 1945 Admission Date: 11/25/2024 5:45 AM Age: 79 y.o. Room/Bed: [facility] A Subjective Patient was awake and cooperative. [...] liquids Patient has achieved all acute care YARD OPERATOR goals. Speech therapy to sign off at [...] Resolved: 11/30/24 Patient will demonstrate safe swallowing Intervention/technique s (Completed) Start: 11/25/24 Expected End: 12/09/24 Resolved: 11/30/24 Patient will participate in repeat clinical dysphagia evaluation (Completed) Start: 11/25/24 Expected End: 12/09/24 Resolved: 11/26/24 Therapy Time YARD OPERATOR Individual Minutes Time In: 1020 Time Out: 1030 Minutes: 10 Yana Pleitez MA, CCC/YARD OPERATOR Normal [facility] Progress Note [facility] Geriatric Medicine Inpatient Consult Service Admission [...] sedation. Do not anticipate needing at discharge --[place] PRN Seroquel and Haldol for ONLY if [...] changes --Recommend outpatient follow up at [facility] ([facility] [place] [facility]) for more in depth cognitive evaluation [...] plan for patient to return home with [facility] at discharge -- vitamin D level [...] with Dr. Christianson. Follow-up: Follow up at [place] [facility] in 4 weeks Subjective Chief Complaint: stroke-like symptoms Geriatrics consulted for rec confusion HPI- The patient is known to me. [...] session yesterday. Plan for discharge home with [facility]. Patient awake and alert in bed [...] he i (more content not included)... Normal [facility] VITAMIN D DEFICIENCY SCREENI NG (VIT D 25)on 11-30-2024 VIT D 25-OH, TOTAL 49 ng/mL Normal See comment [facility] Comment on above: Result Comment: KP Martínez COMMENTS: Target concentration: 30 - 40 ng/mL; toxicity seen at concentrations >100 ng/mL Less than 20 ng/mL: Indicative of Vit D deficiency Test performed by [employer], measuring Total Vitamin D, not individual fractions. Performed By: #### L AB535 ####Regulatory Internship: LYNDSEY NICOLE ([id number])[facility] ([address] 30on 11-29-2024 30 Problem: Knowledge Deficit Goal: Patient/family/caregiv er demonstrates understanding of disease process, treatment plan, [...] Nutritional status is improving Outcome: Progressing Normal [facility] [id number] 11-29-2024 [id number] [facility] unable to [...] service location. Referrals have been sent via [employer]. Liaison to discuss available agencies to accept case with patient upon receiving responses. [facility] [phone] Relations Mgr following case for Discharge Needs. [facility] [id number] 11-29-2024 [id number] Met with patient, wi rossy Roche and daughter Leonarda discussed patient would like a new PCP did not have a PCP in mind. Scheduled with [facility] in [place]. Plan of Treatment Plan of Treatment - Upcoming Encounters Upcoming Encounters Date Type Department Care Team (Latest Contact Info) Description 01/13/2025 11:00 AM EDT Office Visit [facility] Medicine [place] [address], [place] [address] Kyler Garcia MD [address], [place] [id number] Normal [facility] CBC (HEMOGRAM)on 11-29-2024 Erythrocyte distribution width (RBC) [Ratio] 12.9 % Normal 11.5-15.0 [facility] Comment on above: Performed By: #### L [id number] ####Regulatory Internship: LYNDSEY NICOLE ([id number])[facility] [place] [address] Hematocrit (Bld) [Volume fraction] 32.1 % Low 40.0-52.0 [facility] Comment on above: Performed By: #### L AB294 ####Regulatory Internship: LYNDSEY NICOLE ([id number])[facility])[address] [place] [address] Hemoglobin (Bld) [Mass/Vol] 10.7 g/dL Low 13.0-18.0 [facility] Comment on above: Performed By: #### L AB294 ####Regulatory Internship: LYNDSEY NICOLE ([id number])[facility] ([facility])[address] [place] [address] MCH (RBC) [Entitic mass] 30.9 pg Normal 26.0-34.0 [facility] Comment on above: Performed By: #### L AB294 ####Regulatory Internship: LYNDSEY NICOLE ([id number])[facility])[address] [place] [address] MCHC 33.3 % Normal 30.5-36.0 [facility] Comment on above: Performed By: #### L AB294 ####Regulatory Internship: LYNDSEY NICOLE ([id number])[facility] ([facility])[address] [place] [address] MCV (RBC) [Entitic vol] 92.8 fL Normal 77.0-99.0 [facility] Comment on above: Performed By: #### L AB294 ####Regulatory Internship: LYNDSEY NICOLE ([id number])[facility])[address] [place] [address] Platelet mean volume (Bld) [Entitic vol] 10.1 fL Normal 9.0-12.7 [facility] Comment on above: Performed By: #### L AB294 ####Regulatory Internship: LYNDSEY NICOLE ([id number])[facility])[address] [place] [address] Platelets (Bld) [#/Vol] 123 10*3/uL Low 140-440 [facility] Comment on above: Performed By: #### L AB294 ####Regulatory Internship: LYNDSEY NICOLE ([id number])[facility] ([facility])[address] [place] [address] RBC (Bld) [#/Vol] 3.46 10*6/uL Low 4.40-5.90 [facility] Comment on above: Performed By: #### L AB294 ####Regulatory Internship: LYNDSEY NICOLE ([id number])[facility] ([facility])[address] [place] [address] WBC (Bld) [#/Vol] 4.2 10*3/uL Normal 3.6-10.7 [facility] Comment on above: Performed By: #### L [id number] ####Regulatory Internship: LYNDSEY NICOLE ([id number])[facility] ([facility])[address] [place] [address] CBC panel Auto (Bld)on 11-29 Erythrocyte distribution width (RBC) [Ratio] 12.9 % 11.5 - 15.0 % [facility] Hematocrit (Bld) [Volume fraction] 32.1 % Low 40.0 - 52.0 % [facility] Hemoglobin (Bld) [Mass/Vol] 10.7 g/dL Low 13.0 - 18.0 g/dL [facility] Interpretation and review of laboratory results Abnormal [facility] MCH (RBC) [Entitic mass] 30.9 pg 26.0 - 34.0 pg [facility] MCHC (RBC) [Mass/Vol] 33.3 % 30.5 - 36.0 % [facility] MCV (RBC) [Entitic vol] 92.8 fL 77.0 - 99.0 fL [facility] Platelet mean volume (Bld) [Entitic vol] 10.1 fL 9.0 - 12.7 fL [facility] Platelets (Bld) [#/Vol] 123 10*3/uL Low 140 - 440 10*3/uL [facility] RBC (Bld) [#/Vol] 3.46 10*6/uL Low 4.40 - 5.9 0 10*6/uL [facility] WBC (Bld) [#/Vol] 4.2 10*3/uL 3.6 - 10.7 10*3/uL [facility] COMPREHENSIVE METABOLIC PANE Jase 11-29-2024 Albumin [Mass/Vol] 3.2 g/dL Low 3.4-4.8 [facility] Comment on above: Performed By: #### L AB103, TXP316, LAB17, BXN257 ####Regulatory Internship: LYNDSEY NICOLE ([id number])[facility] ([facility])[address] [place] [address] ALP [Catalytic activity/Vol] 91 U/L Normal 40-150 [facility] Comment on above: Performed By: #### L AB103, SFB789, LAB17, LFI291 ####Regulatory Internship: LYNDSEY NICOLE ([id number])[facility])[address] [place] [address] ALT [Catalytic activity/Vol] 25 U/L Normal <40 [facility] Comment on above: Performed By: #### L AB103, LSO434, LAB17, TTJ394 ####Regulatory Internship: LYNDSEY NICOLE ([id number])[facility] ([facility])[address] [place] [address] Anion gap [Moles/Vol] 7 mmol/L Normal 3-13 [facility] Comment on above: Performed By: #### L AB103, HHG472, LAB17, ZMW120 ####Regulatory Internship: LYNDSEY NICOLE ([id number])[facility] ([facility])[address] [place] [address] AST [Catalytic activity/Vol] 35 U/L High <34 [facility] Comment on above: Performed By: #### L AB103, ONI483, LAB17, STR868 ####Regulatory Internship: LYNDSEY NICOLE ([id number])[facility] ([facility])[address] [place] [address] Bilirubin [Mass/Vol] 0.9 mg/dL Normal <1.2 [facility] Comment on above: Performed By: #### L AB103, HTP722, LAB17, JFA884 ####Regulatory Internship: LYNDSEY NICOLE ([id number])[facility])[address] [place] [address] Calcium [Mass/Vol] 8.8 mg/dL Normal 8.8-10.0 [facility] Comment on above: Performed By: #### L AB103, KMP854, LAB17, UNA230 ####Regulatory Internship: LYNDSEY NICOLE ([id number])[facility] [place] [address] Chloride [Moles/Vol] 106 mmol/L Normal 98-107 [facility] Comment on above: Performed By: #### L AB103, GPL304, LAB17, OJA077 ####Regulatory Internship: LYNDSEY NICOLE ([id number])[facility] ([facility])[address] [place] [address] CO2 [Moles/Vol] 21 mmol/L Low 23-31 [facility] Comment on above: Performed By: #### L AB103, SEN284, LAB17, IUO265 ####Regulatory Internship: LYNDSEY NICOLE ([id number])[facility] ([facility])[address] [place] [address] Creatinine [Mass/Vol] 4.03 mg/dL High 0.72-1.25 [facility] Comment on above: Performed By: #### L AB103, YDT618, LAB17, YHO203 ####Regulatory Internship: LYNDSEY NICOLE ([id number])[facility] ([facility])[address] [place] [address] [place] GLOMERULAR FILTRATION RATE ML/MIN/1.73 SQ M.PREDICTED 14.5 mL/min/1.73m*2 Low >60.0 [facility] Comment on above: Result Comment: Calc ulation based on the Chronic Kidney Disease Epidemiology Collaboration (CKD-EPI) equation refit without adjustment for race Performed By: #### L AB103, FVL032, LAB17, AJN573 ####Regulatory Internship: LYNDSEY NICOLE ([id number])[facility] [place] [address] [place] Glucose [Mass/Vol] 94 mg/dL Normal 82-115 [facility] Comment on above: Performed By: #### L AB103, HNO348, LAB17, HPM160 ####Regulatory Internship: LYNDSEY NICOLE ([id number])[facility])[address] [place] [address] Potassium [Moles/Vol] 3.8 mmol/L Normal 3.5-5.1 [facility] Comment on above: Result Comment: [facility] potassium values may be up to 0.5 mmol/L lower than serum values. Performed By: #### L AB103, GRO358, LAB17, ILZ132 ####Regulatory Internship: LYNDSEY NICOLE ([id number])[facility] ([facility])[address] [place] [address] Protein [Mass/Vol] 6.1 g/dL Low 6.4-8.3 [facility] Comment on above: Performed By: #### L AB103, BZO234, LAB17, WHG113 ####Regulatory Internship: LYNDSEY NICOLE ([id number])[facility])[address] [place] [address] Sodium [Moles/Vol] 134 mmol/L Low 136-145 [facility] Comment on above: Performed By: #### L AB103, GOU943, LAB17, SIS948 ####Regulatory Internship: LYNDSEY NICOLE ([id number])[facility])[address] [place] [address] Urea nitrogen [Mass/Vol] 31 mg/dL High 9-23 [facility] Comment on above: Performed By: #### L AB103, APR925, LAB17, DGL143 ####Regulatory Internship: LYNDSEY NICOLE ([id number])[facility])[address] [place] [address] Comprehensive metabolic 1998 panelon 11-29-2024 Albumin [Mass/Vol] 3.2 g/dL Low 3.4 - 4.8 g/dL [facility] ALP [Catalytic activity/Vol] 91 U/L 40 - 150 U/L [facility] ALT [Catalytic activity/Vol] 25 U/L NINF - 40 U/L [facility] Anion gap [Moles/Vol] 7 mmol/L 3 - 13 mmol/L [facility] AST [Catalytic activity/Vol] 35 U/L High NINF - 34 U/L [facility] Bilirubin [Mass/Vol] 0.9 mg/dL NINF - 1.2 mg/dL [facility] Calcium [Mass/Vol] 8.8 mg/dL 8.8 - 10. 0 mg/dL [facility] [facility] Chloride [Moles/Vol] 106 mmol/L 98 - 10 7 mmol/L [facility] CO2 [Moles/Vol] 21 mmol/L Low 23 - 31 mmol/L [facility] Creatinine [Mass/Vol] 4.03 mg/dL High 0.72 - 1.25 mg/dL [facility] GFR/1.73 sq M.predicted (S/P/Bld) [Vol rate/Area] 14.5 mL/min Low - PINF [facility] Comment on above: Calculation based on the Chronic Kidney Disease Epidemiology Collaboration (CKD-EPI) equation refit without adjustment for race Glucose [Mass/Vol] 94 mg/dL 82 - 115 mg/dL [facility] Interpretation and review of laboratory results Abnormal [facility] Potassium [Moles/Vol] 3.8 mmol/L 3.5 - 5.1 mmol/L [facility] Comment on above: Plasma potassium carson ues may be up to 0.5 mmol/L lower than serum values. Protein [Mass/Vol] 6.1 g/dL Low 6.4 - 8.3 g/dL [facility] Sodium [Moles/Vol] 134 mmol/L Low 136 - 145 mmol/L [facility] Urea nitrogen [Mass/Vol] 31 mg/dL High 9 - 23 mg/dL [facility] ED MED ADMINISTRATION DETAIL on 11-29-2024 ED MED ADMINISTRATION DETAIL Funeral Director And Embalmer Medication Administration Record [address] [place] [address] [id number] 11/24/2024 Patient: FRANKLIN BURTON Sex: Male : 1945 Age: 79y MEASUREMENTS: Wt: 99.8 kg, Ht/Jhon: 66.0 in, BMI: 35.51 ALLERGIES: aspirin Medication Ordered Medication Administration Date/Time LORazepam 20:43 11/24 LORazepam (Ativan) IVP 0.5 mg given via [...] - 20:43 Addie Montano R.N. LORazepam 23:39 11/24 LORazepam (Ativan) IVP 0.5 mg given via [...] wasted. - 23:40 Addie Montano R.N. LORazepam 02:23 11/25 LORazepam (Ativan) IVP 0.5 mg given via [...] 02:24 Addie Montano R.N. 1 of 2 Funeral Director And Embalmer 2 of 2 Normal [facility] ED NURSES CLINICAL NOTEon ED NURSES CLINICAL NOTE Nurse Narrative Nurse Clinical Narrative [address] [address] [phone] 11/24/2024 17:02:00 Patient: FRANKLIN BURTON Sex: Male : 1945 Age: 79y Disposition: Transfer to [facility] Disposition Decision Time: 19:34 11/24/2024 Departure Time: 04:18 11/25/2024 TRIAGE Arrived by EMS. Historian: (patient and family). Accompanied by family. Triage time: 17:13 11/24/2024. Acuity: LEVEL 2. Chief Complaint: FACIAL DROOP. This started today. Patient was last known well (16:00 11/24/2024). The patient has had altered mental status. EMS Treatment ENVIRONMENT[employer] SCIENTISTS: Finger stick glucose performed (110). SEPSIS SCREEN: [...] 98.2 F. Pain level now 0/10. -- 17:28 11/24/24 ELIDA Meyers R.N. 1 of 5 Nurse Narrative Measurements: 17:11/24/24 Wt: 99.8 kg, Ht/Jhon: 66.0 in, BMI: 35.51 -- :11/24/24 ELIDA Meyers R.N. Medications: tamsulosin 0.4 mg capsule -- 17:11/24/24 ELIDA Meyers R.N. oxycodone-acetaminophe n 5 mg-325 mg tablet -- 17:11/24/24 EDT Praneeth Meyers R.N. melatonin 3 mg tablet: TAKE 1 TABLET BY MOUTH AT BEDTIME NEEDED FOR SLEEP -- 17:33 11/24/24 TOOT Praneeth Meyers R.N. gabapentin 100 mg capsule -- 17:11/24/24 EDT Praneeth Meyers R.N. metoprolol tartrate 25 mg tablet -- 17:33 11/24/24 TOOT Praneeth Meyers R.N. omeprazole 40 mg capsule,delayed release -- 17:33 11/24/24 EDT Praneeth Meyers R.N. pregabalin 25 mg capsule -- 17:11/24/24 EDT Praneeth Meyers R.N. Allergies: aspirin -- 17:50 11/24/24 EDT Clayton Del Real R.N. 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 Chronic kidney disease (disorder) -- 17:29 11/24/24 TOOT Praneeth Meyers R.N. Hypertension -- 17:30 11/24/24 EDT Praneeth Meyers R.N. Surgeries: fistula placement -- 17:11/24/24 TOOT Praneeth Meyers R.N. History 17:11/24/24. SOCIAL HX: Never smoker. No alcohol use [...] greater than 65 years. -- 17:31 11/24/24 TOOT Praneeth Meyers R.N. Interventions 17:11/24/24. Advanced care plan discussed with family. Patient [...] and lower extremity. Strength is unequal; left cable wirer is greater than the right cable wirer. The patient has weakness. No sensory deficit. HEENT: Right-sided facial weakness. Pupils equal, round and reactive to light. EOM intact. RESPIRATORY: Decreased breath sounds in the bases bilaterally. Respirations not labored. CVS: Normal sinus rhythm noted. SKIN: Skin is warm and dry. -- 17:35 11/24/24 EDT Clayton Del Real R.N. 22:50 11/24/24. GENERAL / [...] to arrival (more content not included)... Normal [facility] ED ORDER SHEET (CPOE ONLY)on 11-29-2024 ED ORDER SHEET (CPOE ONLY) Order Sheet Order Sheet [address] [place] [address] [phone] 11/24/2024 Patient: FRANKLIN BURTON Sex: Male : 1945 Age: 79y MEASUREMENTS: Wt: 99.8 kg, Ht/Jhon: 66.0 in, BMI: 35.51 ALLERGIES: aspirin MEDICATION/IV/DRIP/FLU ID ORDERS Order Description Priority Entered Acknowledged Completed LORazepam (Ativan) IVP0.5 mg 20:39 11/24/2024 20:40 20:43 (NOW x1) José Miguel Hewitt, 11/24/2024 11/24/2024 Clarissa Gross R.NFlorence Reason for ordering with alerts: Benefits outweigh risks --20:39 11/24/2024 José Miguel Hewitt D.O. LORazepam (Ativan) IVP0.5 mg 23:34 11/24/2024 23:39 23:40 (NOW x1) January Rosenberg D.O. 11/24/2024 11/24/2024 Clarissa Quintero R.N. Reason for ordering with alerts: Clinical consideration given --23:34 11/24/2024 January Rosenberg D.O. LORazepam (Ativan) IVP0.5 mg 02:10 11/25/2024 02:20 02:24 (NOW x1) January Rosenberg D.O. 11/25/2024 11/25/2024 Clarissa Quintero RFlorenceNFlorence Reason for ordering with alerts: Clinical consideration given --02:10 11/25/2024 January Rosenberg D.O. 1 of 5 Order Sheet LAB ORDERS Order Description Priority Entered Acknowledged Collected Completed CBC w Diff Stat Stat 17:11/24/2024 17:36 11/24/2024 17:36 11/24/2024 Clayton Aguero, Mo.NFlorence Del Real R.N. D.O. CMP Stat Stat 17:11/24/2024 17:36 11/24/2024 Clayton Aguero R.N. D.O. Glucose Bedside Stat Stat 17:11 11/24/2024 17:36 11/24/2024 Clayton Aguero R.N. D.O. EKG - ED Stat Stat 17:11 11/24/2024 17:36 11/24/2024 17:36 11/24/2024 Clayton Aguero, R.N. Clarissa OchoaO. Magnesium Stat Stat 17:12 11/24/2024 17:36 11/24/2024 Clayton Aguero, Clarissa DeniseO. Troponin-I Stat Stat 17:12 11/24/2024 17:36 11/24/2024 Clayton Aguero R.N. D.O. PTT Stat Stat 18:19 11/24/2024 18:32 11/24/2024 Clayton Aguero, Clarissa DeniseO. PT with INR Stat Stat 18:19 11/24/2024 18:32 11/24/2024 Clayton Aguero, ROsvaldo 2 of 5 Order Sheet D.O. Sed. Rate Stat Stat 18:19 11/24/2024 18:32 11/24/2024 Clayton Aguero, Clarissa DeniseO. DIAGNOSTIC STUDY ORDERS Order Description Priority Entered Acknowledged Completed CT Brain wo Cont Stat Stat 17:11 11/24/2024 17:36 José Miguel Hewitt, 11/24/2024 D.O. Clayton Del Real, R.N. Reason for Study: Altered Mental Status CTA Head [place] w Stat 17:12 11/24/2024 17:36 [...] in neutral position Clayton Aguero R.N. D.O. Refrigerator Tester 17:11 11/24/2024 17:36 11/24/2024 Clayton Aguero R.N. D.O. Pulse Oximeter 17:11 11/24/2024 17:36 11/24/2024 Clayton Aguero R.N. D.O. NPO 17:11 11/24/2024 17:36 11/24/2024 Clayton Aguero R.N. D.OFlorence Vital signs every 15 17:11 11/24/2024 17:36 [...] (11/29/2024 18:35 EDT)] 5 of 5 Normal [facility] ED PHYSICIAN CLINICAL REPORT on 11-29-2024 ED PHYSICIAN CLINICAL REPORT Narrative Physician Clinical Narrative [place] [address] [place] [address] [id number] 11/24/2024 17:02:00 Patient: FRANKLIN BURTON [facility]#: [id number] Sex: Male : 1945 Age: 79y Disposition: Transfer to [facility] Disposition Decision Time: 19:34 11/24/2024 Departure Time: [...] mg tablet omeprazole 40 mg capsule,delayed release oxycodone-acetaminophe n 5 mg-325 mg tablet pregabalin 25 mg [...] exudate or swelling TMs normal bilaterally. No lymphangitis/lymphedem a. HEAD/NECK normocephalic atraumatic, no facial trauma, neck [...] 11/24/2024 17:40 (more content not included)... Normal [facility] ED [facility] 11-29-2024 ED [facility] [address] [place] [address] [id number] 11/24/2024 Patient: FRANKLIN BURTON Sex: Male : 1945 Age: 79y Facility Professional Category Item Description Code Code Quantity Fee Total Drugs Normal Saline 921501 1 $0.00 $0.00 1000cc (079990) Nurse/E/M EMERGENCY 354092 1 $0.00 $0.00 DEPT VISIT HIGH SEVERITYFUNCJ (39822-94) Nurse/IV/IM/Infusions IVP initial (22810) 766975 1 $0.00 $0.00 Nurse/IV/IM/Infusions IVP same med 996564 2 $0.00 $0.00 (31 min apart) (52232) Nurse/Supplies Oxygen in the ED 310997 1 $0.00 $0.00 (553406) Grand $0.00 Total Providers José Miguel Hewitt D.O. Chief Complaint 1 of 2 Superbill CHANGED MENTAL STATUS. Principal Diagnosis (Altered Mental Status). 2 of 2 Normal [facility] ED VISIT SUMMARYon ED VISIT SUMMARY Visit Overview Visit Overview [place] [address] [place] [address] [phone] 11/24/2024 Patient: FRANKLIN BURTON Sex: Male : 1945 Age: 79y 11/29/2024 06:35 PM EDT ED Arrival:17:02 11/24/2024 EDT Status: Recent Travel:no Language:eng Adv Directive:No Isolation Status: Ethnicity:N Fall Risk:risk Infectious Disease Exposure:no Measurements:5'6 / 167.6 Self-Harm Status:unknown risk Sepsis Screen:negative cm 220.0 lb / 99.8 kg Chief Complaint:FACIAL DROOP, (110), and (17:14 11/24/2024) ALLERGIES aspirin HOME MEDICATIONS gabapentin 100 mg capsule melatonin 3 mg tablet: TAKE 1 TABLET BY MOUTH AT BEDTIME NEEDED FOR SLEEP metoprolol tartrate 25 mg tablet omeprazole 40 mg capsule,delayed release oxycodone-acetaminophe n 5 mg-325 mg tablet pregabalin 25 mg [...] Vitals Temp 17:27 11/24/24 98.2 F Temp 04:11 11/25/24 BP 17:27 11/24/24 135/72 BP 04:11/25/24 160/84 2 of 3 Visit Overview First Vitals Last Vitals HR 17:27 11/24/24 72 HR 04:11/25/24 94 RR 17:27 11/24/24 16 RR 04:11 11/25/24 O2 Sat 17:27 11/24/24 95% O2 Sat 04:11 11/25/24 Pain 17:27 11/24/24 0 Pain 04:11 11/25/24 ETCO2 17:27 11/24/24 ETCO2 04:11 11/25/24 GCS 17:27 11/24/24 GCS 04:11 11/25/24 RTS 17:27 11/24/24 RTS 04:11/25/24 PROCEDURES NURSING INTERVENTIONS LABS / STUDIES LABS / STUDIES ORDERED CBC w Diff Chest 1V CMP CT Brain wo Cont CTA Carotids w IVC Recons CTA Head [place] w Recons EKG - ED Glucose Bedside Magnesium PT with INR PTT Sed. Rate Troponin-I CLINICAL IMPRESSION 3 of 3 Normal [facility] ED VITALS FLOW SHEETon 11-29 ED VITALS FLOW SHEET Vitals Vital Sign Flow Sheet [facility] [address] [place] [address] [phone] 11/24/2024 Patient: FRANKLIN BURTON Sex: Male : [...] 98.2 F 0 3 of 3 Normal [facility] FERRITINon 11-29-2024 Ferritin [Mass/Vol] 1202 ng/mL High 22-275 [facility] Comment on above: Result Comment: KP Martínez COMMENTS: Ferritin levels below 10 ng/mL have been reported as indicative of iron deficiency anemia. Performed By: #### L [id number], LAB68 ####Regulatory Internship: LYNDSEY NICOLE ([id number])[address] Ferritin [Mass/Vol]on 2024 Interpretation and review of laboratory results Abnormal [facility] Ferritin levels belo w 10 ng/mL have been reported as indicative of iron deficiency anemia. [facility] IRON AND TIBCon 11-29-2024 IRON BINDING CAPACITY 200 ug/dL Low 250-450 [facility] Comment on above: Performed By: #### L AB829, LAB68 ####Regulatory Internship: LYNDSEY NICOLE ([id number])[facility] ([facility])[address] [place] [address] [place] IRON SATURATION 23.0 % Normal 20.0-50.0 [facility] Comment on above: Performed By: #### L AB829, LAB68 ####Regulatory Internship: LYNDSEY NICOLE ([id number])[facility] ([facility])[address] [place] [address] IRON, TOTAL 46 ug/dL Low 65-175 [facility] Comment on above: Performed By: #### L [id number], LAB68 ####Regulatory Internship: LYNDSEY NICOLE ([id number])[facility] ([facility])[address] [place] [address] Iron and Iron binding capaci ty panelon 11-29-2024 Interpretation and review of laboratory results Abnormal [facility] Iron [Mass/Vol] 46 ug/dL Low 65 - 175 ug/dL [facility] Iron binding capacity [Mass/Vol] 200 ug/dL Low 250 - 450 ug/dL [facility] Iron saturation [Mass fraction] 23 % 20.0 - 50.0 % [facility] Laboratory - Chemistry and C hemistry - challengeon 11-29-2024 Ferritin [Mass/Vol] 1202 ng/mL High 22 - 275 ng/mL [facility] Glucose [Mass/Vol] 98 mg/dL 70 - 100 mg/dL [facility] Glucose [Mass/Vol] 110 mg/dL High 70 - 100 mg/dL [facility] TSH Qn 1.38 m[IU]/L [facility] Glucose [Mass/Vol] 94 mg/dL 70 - 100 mg/dL [facility] Magnesium [Mass/Vol] 1.9 mg/dL 1.6 - 2 .6 mg/dL [facility] Glucose [Mass/Vol] 103 mg/dL High 70 - 100 mg/dL [facility] MAGNESIUMon 11-29-2024 Magnesium [Mass/Vol] 1.9 mg/dL Normal 1.6-2.6 [facility] Comment on above: Result Comment: KP Martínez COMMENTS: Higher values can be expected in females during menses. Performed By: #### L AB103, [id number], LAB17, [id number] ####Regulatory Internship: LYNDSEY NICOLE ([id number])[facility] ([facility])[address] [place] [address] [place] Magnesium [Mass/Vol]on 11-29 Higher values can be expected in females during menses. [facility] No Panel Informationon 11-29 Interpretation and review of laboratory results Normal [facility] Performed by: Summa Rockledge [address] [address] CLIA ID: [id number] [facility] Interpretation and review of laboratory results Abnormal [facility] Performed by: [address] [address] CLIA ID: [id number] [facility] Interpretation and review of laboratory results Normal [facility] Performed by: [address] [address] CLIA ID: [id number] [facility] Interpretation and review of laboratory results Normal [facility] Interpretation and review of laboratory results Abnormal [facility] Performed by: [address] [address] CLIA ID: [id number] [facility] Nursing Noteon 11-29-2024 Nursing Note Patient Name: Franklin Burton Patient : 1945 Acct: [id number] Date of Admission: 11/25/2024 Room/Bed: [facility] A Code Status: DNR-CCA Allergies: Allergies[1] Diagnosis: [...] Applicable Site Assessment: Signs and Symptoms of Infection/Inflammation : None If yes: Not Applicable Dressing: na [...] CREATININE 3.20 (H) 04/09/2021 1352 CALCIUM 8.8 11/29/2024 0348 PHOS 2.6 11/29/2024 0348 IV Drips and Rate/Dose Continuous Meds[3] Safety - Before each treatment: Dialysis Machine No.: [id number] RO Machine Number: [id number] Dialyzer Lot No.: [id number] Tubing Lot Number: [id number] [employer] Secure: Yes Venous Parameters Set: Yes Arterial Parameters Set: Yes NS Bag: Yes Saline Line Double Clamped: Yes Dialyzer: Nipro Prime Volume (mL): 200 mL RO Machine Number: [id number] RO Machine Log Sheet Completed: Yes Machine Alarm Self Test: Completed, Passed (11/29/24 1313) Air Foam Detector: Tested, Proper Function, pH Reading Extracorporeal Circuit Tested for Integrity: Yes Machine Conductivity: 13.7 Manual Conductivity: 13.6 Manual Ph: 7.2 Bleach Test (Neg): Yes Bath Temperature: 36 ?C (96.8 ?F) Conductivity Meter Serial #: [id number] Machine Functioning Alarm Free? Yes Dialysis Bath: K+ (Potassium): 2 Ca+ (Calcium): 2.5 Na+ (Sodium): 138 HCO3 (Bicarb): 33 Bicarbonate Concentrate Lot No.: [id number] Acid Concentrate Lot No.: [id number] Chlorine Testing - Before each treatment and every 4 hours: Time On: 1411 Time Off: 1811 Treatment Goal: 2L Weight Height: 172.7 cm (5' 7.99) (11/26/24 1123) Weight: 103 kg (228 lb) (11/25/24 133) BMI (Calculated): 34.68 (11/25/24 1336) 1st check: [...] iniated lines (more content not included)... Normal [facility] PHOSPHORUSon 11-29-2024 Phosphate [Mass/Vol] 2.6 mg/dL Normal 2.3-4.7 [facility] Comment on above: Performed By: #### L AB103, [id number], LAB17, KYO617 ####Regulatory Internship: LYNDSEY NICOLE ([id number])[facility] ([facility])[address] [place] [address] Phosphate [Moles/Vol]on 11-16 Phosphate [Mass/Vol] 2.6 mg/dL 2.3 - 4 .7 mg/dL [facility] Progress Noteon 11-29-2024 Progress Note Speech-Language Pathology SPEECH LANGUAGE PATHOLOGY [facility] Dysphagia Treatment Note Patient Name: Franklin Burton Evaluation Date: 11/29/2024 Date of : 1945 Admission Date: 11/25/2024 5:45 AM Age: 79 y.o. Room/Bed: [facility] A Subjective Patient alert and cooperative. Seen [...] were pulled last month and gums are Finally healing. Upper dentures in place. Accepted liquids via cup edge, self-fed, WFL. Tolerated puree solids WFL. Trialed minced/moist & soft/bite sized textures this date. Pt tolerated minced/moist solids with timely mastication, achieved full bolus clearance. Soft/bite sized solids resulted in more prolonged mastication/oral holding I have to let it soak in my mouth a bit. Pt did clear soft/bite sized solids but also complained of gums feeling sore. There were no overt s/s of aspiration/penetration noted. Vocal quality remained clear. Appropriate for small diet advancement. Plan & Recommendations Plan: Continue acute YARD OPERATOR therapy per initial plan of care and [...] Stated Goal: get up and move a bit Encounter Problems Encounter Problems (Active) Swallowing Patient will tolerate the least restrictive diet consistency to allow for safe consumption of daily meals (Progressing) Start: 11/25/24 Expected End: 12/09/24 Patient will demonstrate safe swallowing Intervention/technique s (Progressing) Start: 11/25/24 Expected End: 12/09/24 Patient will participate in repeat clinical dysphagia evaluation (Completed) Start: 11/25/24 Expected End: 12/09/24 Resolved: 11/26/24 Therapy Time YARD OPERATOR Individual Minutes Time In: 1110 Time Out: 1125 Minutes: 15 Sarah Bass CCC-YARD OPERATOR Normal [facility] Progress Note [facility] Geriatric Medicine Inpatient Consult Service Admission [...] to wean as able. Hold for sedation. --[place] PRN Seroquel and Haldol for ONLY if [...] changes --Recommend outpatient follow up at [facility] for more in depth [...] Chief Complaint: stroke-like symptoms Geriatrics consulted for rec confusion HPI- The patient is new to me [...] to bed with nurse aide and nurse internal security manager at bedside. Patient denies pain and reports [...] information on discharge paperwork. Spoke to nurse internal security manager at bedside. Patient was agitated overnight and received PRN medications. No reported agitation this mor (more content not included)... Normal [facility] THYROID STIMULATING HORMONEo n 11-29-2024 THYROID STIMULATING HORMONE 1.38 uIU/mL Normal 0.35-4.94 [facility] Comment on above: Performed By: #### L AB103, DUZ031, LAB17, PGE101 ####Regulatory Internship: LYNDSEY NICOLE ([id number])[facility] ([facility])[address] [place] [address] TSH Qnon 11-29-2024 Interpretation and review of laboratory results Normal [facility] 30on 11-28-2024 30 Problem: Knowledge Deficit Goal: Patient/family/caregiv er demonstrates understanding of disease process, treatment plan, [...] Nutritional status is improving Outcome: Progressing Normal [facility] 30 Problem: Knowledge Deficit Goal: Patient/family/caregiv er demonstrates understanding of disease process, treatment plan, medications, and discharge instructions 11/28/2024 0555 by Nathanael Coelho RN Outcome: Progressing 11/28/2024 0546 by Nathanael Coelho RN Outcome: Progressing Problem: Neurological Deficit Goal: Neurological status is stable or improving 11/28/2024 0555 by Nathanael Coelho RN Outcome: Progressing 11/28/2024 0546 by Nathanael Coelho RN Outcome: Progressing Problem: Activity Intolerance/Impaired Mobility Goal: Mobility/activity is maintained at optimum level for patient 11/28/2024 0555 by Nathanael Coelho RN Outcome: Progressing 11/28/2024 0546 by Nathanael Coelho RN Outcome: Progressing Problem: Potential for Aspiration Goal: Non-ventilated patient's risk of aspiration is minimized 11/28/2024 0555 by Nathanael Coelho RN Outcome: Progressing 11/28/2024 0546 by Nathanael Coelho RN Outcome: Progressing Goal: Ventilated patient's risk of aspiration is minimized 11/28/2024 0555 by Nathanael Coelho RN Outcome: Progressing 11/28/2024 0546 by Nathanael Coelho RN Outcome: Progressing Problem: Nutrition Goal: Nutritional status is improving 11/28/2024 0555 by Nathanael Coelho RN Outcome: Progressing 11/28/2024 0546 by Nathanael Coelho RN Outcome: Progressing Normal [facility] 30 Problem: Knowledge Deficit Goal: Patient/family/caregiv er demonstrates understanding of disease process, treatment plan, [...] Nutritional status is improving Outcome: Progressing Normal [facility] CBC (HEMOGRAM)on 11-28-2024 Erythrocyte distribution width (RBC) [Ratio] 13.1 % Normal 11.5-15.0 [facility] Comment on above: Performed By: #### L [id number] ####Regulatory Internship: LYNDSEY NICOLE ([id number])[address] Hematocrit (Bld) [Volume fraction] 31.9 % Low 40.0-52.0 [facility] Comment on above: Performed By: #### L [id number] ####Regulatory Internship: LYNDSEY NICOLE ([id number])[address] Hemoglobin (Bld) [Mass/Vol] 10.5 g/dL Low 13.0-18.0 [facility] Comment on above: Performed By: #### L [id number] ####Regulatory Internship: LYNDSEY NICOLE ([id number])[address] MCH (RBC) [Entitic mass] 30.8 pg Normal 26.0-34.0 [facility] Comment on above: Performed By: #### L [id number] ####Regulatory Internship: LYNDSEY NICOLE ([id number])[address] MCHC 32.9 % Normal 30.5-36.0 [facility] Comment on above: Performed By: #### L AB294 ####Regulatory Internship: LYNDSEY NICOLE ([id number])[facility] ([facility])[address] [place] [address] MCV (RBC) [Entitic vol] 93.5 fL Normal 77.0-99.0 [facility] Comment on above: Performed By: #### L [id number] ####Regulatory Internship: LYNDSEY NICOLE ([id number])[facility])[address] [place] [address] Platelet mean volume (Bld) [Entitic vol] 9.8 fL Normal 9.0-12.7 [facility] Comment on above: Performed By: #### L [id number] ####Regulatory Internship: LYNDSEY NICOLE ([id number])[facility])[address] [place] [address] Platelets (Bld) [#/Vol] 118 10*3/uL Low 140-440 [facility] Comment on above: Performed By: #### L AB294 ####Regulatory Internship: LYNDSEY NICOLE ([id number])[facility] ([facility])[address] [place] [address] RBC (Bld) [#/Vol] 3.41 10*6/uL Low 4.40-5.90 [facility] Comment on above: Performed By: #### L [id number] ####Regulatory Internship: LYNDSEY NICOLE ([id number])[facility])[address] [place] [address] WBC (Bld) [#/Vol] 4.6 10*3/uL Normal 3.6-10.7 [facility] Comment on above: Performed By: #### L [id number] ####Regulatory Internship: LYNDSEY NICOLE ([id number])[facility])[address] [place] [address] CBC panel Auto (Bld)on 11-28 Erythrocyte distribution width (RBC) [Ratio] 13.1 % 11.5 - 15.0 % [facility] Hematocrit (Bld) [Volume fraction] 31.9 % Low 40.0 - 52.0 % [facility] Hemoglobin (Bld) [Mass/Vol] 10.5 g/dL Low 13.0 - 18.0 g/dL [facility] Interpretation and review of laboratory results Abnormal [facility] MCH (RBC) [Entitic mass] 30.8 pg 26.0 - 34.0 pg [facility] MCHC (RBC) [Mass/Vol] 32.9 % 30.5 - 36.0 % [facility] MCV (RBC) [Entitic vol] 93.5 fL 77.0 - 99.0 fL [facility] Platelet mean volume (Bld) [Entitic vol] 9.8 fL 9.0 - 12.7 fL [facility] Platelets (Bld) [#/Vol] 118 10*3/uL Low 140 - 440 10*3/uL [facility] RBC (Bld) [#/Vol] 3.41 10*6/uL Low 4.40 - 5.9 0 10*6/uL [facility] WBC (Bld) [#/Vol] 4.6 10*3/uL 3.6 - 10.7 10*3/uL [facility] COMPREHENSIVE METABOLIC PANE Jase 11-28-2024 Albumin [Mass/Vol] 3.1 g/dL Low 3.4-4.8 [facility] Comment on above: Performed By: #### Jin MORRIS, LAB17, [id number] ####Regulatory Internship: LYNDSEY NICOLE ([id number])[facility])[address] [place] [address] ALP [Catalytic activity/Vol] 82 U/L Normal 40-150 [facility] Comment on above: Performed By: #### Jin ABGloria, LAB17, [id number] ####Regulatory Internship: LYNDSEY NICOLE ([id number])[facility] ([facility])[address] [place] [address] ALT [Catalytic activity/Vol] 16 U/L Normal <40 [facility] Comment on above: Performed By: #### Jin AB113, LAB17, [id number] ####Regulatory Internship: LYNDSEY NICOLE ([id number])[facility] ([facility])[address] [place] [address] Anion gap [Moles/Vol] 7 mmol/L Normal 3-13 [facility] Comment on above: Performed By: #### L ABGloria, LAB17, [id number] ####Regulatory Internship: LYNDSEY NICOLE ([id number])[facility] ([facility])[address] [place] [address] AST [Catalytic activity/Vol] 31 U/L Normal <34 [facility] Comment on above: Performed By: #### L ABGloria, LAB17, [id number] ####Regulatory Internship: LYNDSEY NICOLE ([id number])[facility] ([facility])[address] [place] [address] Bilirubin [Mass/Vol] 0.8 mg/dL Normal <1.2 [facility] Comment on above: Performed By: #### Jin ABGloria, LAB17, [id number] ####Regulatory Internship: LYNDSEY NICOLE ([id number])[facility])[address] [place] [address] Calcium [Mass/Vol] 8.8 mg/dL Normal 8.8-10.0 [facility] Comment on above: Performed By: #### Jin ABGloria, LAB17, [id number] ####Regulatory Internship: LYNDSEY NICOLE ([id number])[facility] ([facility])[address] [place] [address] Chloride [Moles/Vol] 105 mmol/L Normal 98-107 [facility] Comment on above: Performed By: #### Jin ABGloria, LAB17, [id number] ####Regulatory Internship: LYNDSEY NICOLE ([id number])[facility] ([facility])[address] [place] [address] [place] CO2 [Moles/Vol] 22 mmol/L Low 23-31 [facility] Comment on above: Performed By: #### L ABGloria, LAB17, [id number] ####Regulatory Internship: LYNDSEY NICOLE ([id number])[facility] ([facility])[address] [place] [address] Creatinine [Mass/Vol] 3.52 mg/dL High 0.72-1.25 [facility] Comment on above: Performed By: #### L AB113, LAB17, [id number] ####Regulatory Internship: LYNDSEY NICOLE ([id number])[facility])[address] [place] [address] GLOMERULAR FILTRATION RATE ML/MIN/1.73 SQ M.PREDICTED 17.0 mL/min/1.73m*2 Low >60.0 [facility] Comment on above: Result Comment: Calc ulation based on the Chronic Kidney Disease Epidemiology Collaboration (CKD-EPI) equation refit without adjustment for race Performed By: #### L AB113, LAB17, [id number] ####Regulatory Internship: LYNDSEY NICOLE ([id number])[address] Glucose [Mass/Vol] 97 mg/dL Normal 82-115 [facility] Comment on above: Performed By: #### L AB113, LAB17, [id number] ####Regulatory Internship: LYNDSEY NICOLE ([id number])[address] Potassium [Moles/Vol] 4.1 mmol/L Normal 3.5-5.1 [facility] Comment on above: Result Comment: [facility] potassium values may be up to 0.5 mmol/L lower than serum values. Performed By: #### L AB113, LAB17, [id number] ####Regulatory Internship: LYNDSEY NICOLE ([id number])[place] [address] [place] Protein [Mass/Vol] 6.0 g/dL Low 6.4-8.3 [facility] Comment on above: Performed By: #### L AB113, LAB17, [id number] ####Regulatory Internship: LYNDSEY NICOLE ([id number])[address] Sodium [Moles/Vol] 134 mmol/L Low 136-145 [facility] Comment on above: Performed By: #### L AB113, LAB17, [id number] ####Regulatory Internship: LYNDSEY NICOLE ([id number])[facility] [place] [address] Urea nitrogen [Mass/Vol] 26 mg/dL High 9-23 [facility] Comment on above: Performed By: #### L AB113, LAB17, [id number] ####Regulatory Internship: LYNDSEY NICOLE ([id number])[facility] ([facility])[address] [place] [address] Comprehensive metabolic 1998 panelon 11-28-2024 Albumin [Mass/Vol] 3.1 g/dL Low 3.4 - 4.8 g/dL [facility] ALP [Catalytic activity/Vol] 82 U/L 40 - 150 U/L [facility] ALT [Catalytic activity/Vol] 16 U/L NINF - 40 U/L [facility] Anion gap [Moles/Vol] 7 mmol/L 3 - 13 mmol/L [facility] AST [Catalytic activity/Vol] 31 U/L [facility] - 34 U/L [facility] Bilirubin [Mass/Vol] 0.8 mg/dL NINF - 1.2 mg/dL [facility] Calcium [Mass/Vol] 8.8 mg/dL 8.8 - 10. 0 mg/dL [facility] Chloride [Moles/Vol] 105 mmol/L 98 - 10 7 mmol/L [facility] CO2 [Moles/Vol] 22 mmol/L Low 23 - 31 mmol/L [facility] Creatinine [Mass/Vol] 3.52 mg/dL High 0.72 - 1.25 mg/dL [facility] GFR/1.73 sq M.predicted (S/P/Bld) [Vol rate/Area] 17 mL/min Low - PINF [facility] Comment on above: Calculation based on the Chronic Kidney Disease Epidemiology Collaboration (CKD-EPI) equation refit without adjustment for race Glucose [Mass/Vol] 97 mg/dL 82 - 115 mg/dL [facility] Potassium [Moles/Vol] 4.1 mmol/L 3.5 - 5.1 mmol/L [facility] Comment on above: Plasma potassium carson ues may be up to 0.5 mmol/L lower than serum values. Protein [Mass/Vol] 6 g/dL Low 6.4 - 8.3 g/dL [facility] Sodium [Moles/Vol] 134 mmol/L Low 136 - 145 mmol/L [facility] Urea nitrogen [Mass/Vol] 26 mg/dL High 9 - 23 mg/dL [facility] Laboratory - Chemistry and C hemistry - challengeon 11-28-2024 Glucose [Mass/Vol] 112 mg/dL High 70 - 100 mg/dL [facility] Glucose [Mass/Vol] 119 mg/dL High 70 - 100 mg/dL [facility] Glucose [Mass/Vol] 107 mg/dL High 70 - 100 mg/dL [facility] Magnesium [Mass/Vol] 1.9 mg/dL 1.6 - 2 .6 mg/dL [facility] Glucose [Mass/Vol] 96 mg/dL 70 - 100 mg/dL [facility] MAGNESIUMon 11-28-2024 Magnesium [Mass/Vol] 1.9 mg/dL Normal 1.6-2.6 [facility] Comment on above: Result Comment: KP Martínez COMMENTS: Higher values can be expected in females during menses. Performed By: #### L AB113, LAB17, PLH114 ####Regulatory Internship: LYNDSEY NICOLE ([id number])[facility] ([facility])[address] [place] [address] Magnesium [Mass/Vol]on 11-28 Interpretation and review of laboratory results Normal [facility] Higher values can be expected in females during menses. [facility] No Panel Informationon 11-28 Interpretation and review of laboratory results Abnormal [facility] Performed by: [address] [address] CLIA ID: [id number] [facility] Interpretation and review of laboratory results Abnormal [facility] Performed by: [address] [address] CLIA ID: [id number] [facility] Interpretation and review of laboratory results Abnormal [facility] Performed by: [address] [address] CLIA ID: [id number] [facility] Interpretation and review of laboratory results Abnormal [facility] Interpretation and review of laboratory results Normal [facility] Performed by: [address] [address] CLIA ID: [id number] [facility] PHOSPHORUSon 11-28-2024 Phosphate [Mass/Vol] 2.0 mg/dL Low 2.3-4.7 [facility] Comment on above: Performed By: #### L AB113, LAB17, [id number] ####Regulatory Internship: LYNDSEY NICOLE ([id number])[facility])[address] [place] [address] [place] Phosphate [Moles/Vol]on 11-16 Phosphate [Mass/Vol] 2 mg/dL Low 2.3 - 4 .7 mg/dL [facility] CBC (HEMOGRAM)on 11-27-2024 Erythrocyte distribution width (RBC) [Ratio] 13.1 % Normal 11.5-15.0 [facility] Comment on above: Performed By: #### L AB294 ####Regulatory Internship: LYNDSEY NICOLE ([id number])[facility])[address] [place] [address] Hematocrit (Bld) [Volume fraction] 33.7 % Low 40.0-52.0 [facility] Comment on above: Performed By: #### L AB294 ####Regulatory Internship: LYNDSEY NICOLE ([id number])[facility] ([facility])[address] [place] [address] Hemoglobin (Bld) [Mass/Vol] 11.1 g/dL Low 13.0-18.0 [facility] Comment on above: Performed By: #### L AB294 ####Regulatory Internship: LYNDSEY NICOLE ([id number])[facility])[address] [place] [address] MCH (RBC) [Entitic mass] 30.8 pg Normal 26.0-34.0 [facility] Comment on above: Performed By: #### L AB294 ####Regulatory Internship: LYNDSEY NICOLE ([id number])[facility])[address] [place] [address] MCHC 32.9 % Normal 30.5-36.0 [facility] Comment on above: Performed By: #### L AB294 ####Regulatory Internship: LYNDSEY NICOLE ([id number])[facility] ([facility])[address] [place] [address] MCV (RBC) [Entitic vol] 93.6 fL Normal 77.0-99.0 [facility] Comment on above: Performed By: #### L AB294 ####Regulatory Internship: LYNDSEY NICOLE ([id number])[facility])[address] [place] [address] Platelet mean volume (Bld) [Entitic vol] 9.7 fL Normal 9.0-12.7 [facility] Comment on above: Performed By: #### L AB294 ####Regulatory Internship: LYNDSEY NICOLE ([id number])[facility])[address] [place] [address] Platelets (Bld) [#/Vol] 114 10*3/uL Low 140-440 [facility] Comment on above: Performed By: #### L AB294 ####Regulatory Internship: LYNDSEY NICOLE ([id number])[facility])[address] [place] [address] RBC (Bld) [#/Vol] 3.60 10*6/uL Low 4.40-5.90 [facility] Comment on above: Performed By: #### L AB294 ####Regulatory Internship: LYNDSEY NICOLE ([id number])[facility])[address] [place] [address] WBC (Bld) [#/Vol] 5.9 10*3/uL Normal 3.6-10.7 [facility] Comment on above: Performed By: #### L AB294 ####Regulatory Internship: LYNDSEY NICOLE ([id number])[facility])[address] [place] [address] CBC panel Auto (Bld)on 11-27 Erythrocyte distribution width (RBC) [Ratio] 13.1 % 11.5 - 15.0 % [facility] Hematocrit (Bld) [Volume fraction] 33.7 % Low 40.0 - 52.0 % [facility] Hemoglobin (Bld) [Mass/Vol] 11.1 g/dL Low 13.0 - 18.0 g/dL [facility] Interpretation and review of laboratory results Abnormal [facility] MCH (RBC) [Entitic mass] 30.8 pg 26.0 - 34.0 pg [facility] MCHC (RBC) [Mass/Vol] 32.9 % 30.5 - 36.0 % [facility] MCV (RBC) [Entitic vol] 93.6 fL 77.0 - 99.0 fL [facility] Platelet mean volume (Bld) [Entitic vol] 9.7 fL 9.0 - 12.7 fL [facility] Platelets (Bld) [#/Vol] 114 10*3/uL Low 140 - 440 10*3/uL [facility] RBC (Bld) [#/Vol] 3.6 10*6/uL Low 4.40 - 5.9 0 10*6/uL [facility] WBC (Bld) [#/Vol] 5.9 10*3/uL 3.6 - 10.7 10*3/uL [facility] COMPREHENSIVE METABOLIC PANE Jase 11-27-2024 Albumin [Mass/Vol] 3.3 g/dL Low 3.4-4.8 [facility] Comment on above: Performed By: #### L AB103, UPH089, LAB17 ####Regulatory Internship: LYNDSEY NICOLE ([id number])[facility] ([facility])[address] [place] [address] ALP [Catalytic activity/Vol] 83 U/L Normal 40-150 [facility] Comment on above: Performed By: #### L AB103, IKS697, LAB17 ####Regulatory Internship: LYNDSEY NICOLE ([id number])[facility] ([facility])[address] [place] [address] ALT [Catalytic activity/Vol] 9 U/L Normal <40 [facility] Comment on above: Performed By: #### L AB103, UPL954, LAB17 ####Regulatory Internship: LYNDSEY NICOLE ([id number])[facility] ([facility])[address] [place] [address] Anion gap [Moles/Vol] 9 mmol/L Normal 3-13 [facility] Comment on above: Performed By: #### L AB103, ZZR573, LAB17 ####Regulatory Internship: LYNDSEY NICOLE ([id number])[facility])[address] [place] [address] AST [Catalytic activity/Vol] 27 U/L Normal <34 [facility] Comment on above: Performed By: #### L AB103, ZEY976, LAB17 ####Regulatory Internship: LYNDSEY NICOLE ([id number])[facility] ([facility])[address] [place] [address] Bilirubin [Mass/Vol] 1.2 mg/dL High <1.2 [facility] Comment on above: Performed By: #### L AB103, KAQ459, LAB17 ####Regulatory Internship: LYNDSEY NICOLE ([id number])[facility])[address] [place] [address] Calcium [Mass/Vol] 8.9 mg/dL Normal 8.8-10.0 [facility] Comment on above: Performed By: #### L AB103, YZA032, LAB17 ####Regulatory Internship: LYNDSEY NICOLE ([id number])[facility] ([facility])[address] [place] [address] Chloride [Moles/Vol] 103 mmol/L Normal 98-107 [facility] Comment on above: Performed By: #### L AB103, ACQ587, LAB17 ####Regulatory Internship: LYNDSEY NICOLE ([id number])[facility] ([facility])[address] [place] [address] [place] CO2 [Moles/Vol] 24 mmol/L Normal 23-31 [facility] Comment on above: Performed By: #### L AB103, WQX215, LAB17 ####Regulatory Internship: LYNDSEY NICOLE ([id number])[facility])[address] [place] [address] Creatinine [Mass/Vol] 2.84 mg/dL High 0.72-1.25 [facility] Comment on above: Performed By: #### L AB103, NSB321, LAB17 ####Regulatory Internship: LYNDSEY NICOLE ([id number])[facility])[address] [place] [address] GLOMERULAR FILTRATION RATE ML/MIN/1.73 SQ M.PREDICTED 22.0 mL/min/1.73m*2 Low >60.0 [facility] Comment on above: Result Comment: Calc ulation based on the Chronic Kidney Disease Epidemiology Collaboration (CKD-EPI) equation refit without adjustment for race Performed By: #### L AB103, EGK420, LAB17 ####Regulatory Internship: LYNDSEY NICOLE ([id number])[address] Glucose [Mass/Vol] 110 mg/dL Normal 82-115 [facility] Comment on above: Performed By: #### L AB103, UPS978, LAB17 ####Regulatory Internship: LYNDSEY NICOLE ([id number])[address] Potassium [Moles/Vol] 3.9 mmol/L Normal 3.5-5.1 [facility] Comment on above: Result Comment: [facility] potassium values may be up to 0.5 mmol/L lower than serum values. Performed By: #### L AB103, LPI978, LAB17 ####Regulatory Internship: LYNDSEY NICOLE ([id number])[address] Protein [Mass/Vol] 6.3 g/dL Low 6.4-8.3 [facility] Comment on above: Performed By: #### L AB103, OMX999, LAB17 ####Regulatory Internship: LYNDSEY NICOLE ([id number])[place] [address] [place] Sodium [Moles/Vol] 136 mmol/L Normal 136-145 [facility] Comment on above: Performed By: #### L AB103, KJB612, LAB17 ####Regulatory Internship: LYNDSEY NICOLE ([id number])[facility] [place] [address] Urea nitrogen [Mass/Vol] 16 mg/dL Normal 9-23 [facility] Comment on above: Performed By: #### L AB103, XJP099, LAB17 ####Regulatory Internship: LYNDSEY NICOLE ([id number])[facility] ([facility])[address] [place] [address] Comprehensive metabolic 1998 panelOrdered By: Meghna Jensen on 11-27-2024 Albumin [Mass/Vol] 3.3 g/dL Low 3.4 - 4.8 g/dL [facility] ALP [Catalytic activity/Vol] 83 U/L 40 - 150 U/L [facility] ALT [Catalytic activity/Vol] 9 U/L NINF - 40 U/L [facility] Anion gap [Moles/Vol] 9 mmol/L 3 - 13 mmol/L [facility] AST [Catalytic activity/Vol] 27 U/L NINF - 34 U/L [facility] Bilirubin [Mass/Vol] 1.2 mg/dL High NINF - 1.2 mg/dL [facility] Calcium [Mass/Vol] 8.9 mg/dL 8.8 - 10. 0 mg/dL [facility] Chloride [Moles/Vol] 103 mmol/L 98 - 10 7 mmol/L [facility] CO2 [Moles/Vol] 24 mmol/L 23 - 31 mmol/L [facility] Creatinine [Mass/Vol] 2.84 mg/dL High 0.72 - 1.25 mg/dL [facility] GFR/1.73 sq M.predicted (S/P/Bld) [Vol rate/Area] 22 mL/min Low - PINF [facility] Comment on above: Calculation based on the Chronic Kidney Disease Epidemiology Collaboration (CKD-EPI) equation refit without adjustment for race Glucose [Mass/Vol] 110 mg/dL 82 - 115 mg/dL [facility] Interpretation and review of laboratory results Abnormal [facility] Potassium [Moles/Vol] 3.9 mmol/L 3.5 - 5.1 mmol/L [facility] Comment on above: Plasma potassium carson ues may be up to 0.5 mmol/L lower than serum values. Protein [Mass/Vol] 6.3 g/dL Low 6.4 - 8.3 g/dL [facility] Sodium [Moles/Vol] 136 mmol/L 136 - 145 mmol/L [facility] Urea nitrogen [Mass/Vol] 16 mg/dL 9 - 23 mg/dL [facility] Laboratory - Chemistry and C hemistry - challengeon 11-27-2024 Glucose [Mass/Vol] 110 mg/dL High 70 - 100 mg/dL [facility] Glucose [Mass/Vol] 100 mg/dL 70 - 100 mg/dL [facility] Magnesium [Mass/Vol] 1.9 mg/dL 1.6 - 2 .6 mg/dL [facility] Glucose [Mass/Vol] 111 mg/dL High 70 - 100 mg/dL [facility] MAGNESIUMon 11-27-2024 Magnesium [Mass/Vol] 1.9 mg/dL Normal 1.6-2.6 [facility] Comment on above: Result Comment: KP Martínez COMMENTS: Higher values can be expected in females during menses. Performed By: #### L AB103, CVM259, LAB17 ####Regulatory Internship: LYNDSEY NICOLE ([id number])[address] MR Brain WO contraston 11-27 1. No acute intracranial findings. 2. Probable chronic ischemic and atrophic changes. Report Dictated on Electronically Signed By: Robin Sandoval MD Electronically Signed Date/Time: 11/27/2024 12:01 AM [facility] Name[facility]ANK[facility] BURTON : 1945 [id number] Exam Date/Time: 11/26/2024 16:53 Procedure: MR BRAIN [...] or sellar masses. No cerebellar tonsillar herniation. [facility] Robin Sandoval MD - 11/27/2024 Patient Name: FRANKLIN BURTON : 1945 [id number] Exam Date/Time: 11/26/2024 16:53 Procedure: MR BRAIN [...] Electronically Signed Date/Time: 11/27/2024 12:01 AM EDT [employer] MR Brain WO contrastOrdered By: Robin Sandoval on 11-27-2024 [employer] Work Phone: Magnesium [Mass/Vol]on 11-27 Interpretation and review of laboratory results Normal [facility] Higher values can be expected in females during menses. [employer] No Panel Informationon 11-27 Interpretation and review of laboratory results Abnormal [facility] Performed by: [address] [address] CLIA ID: [id number] [facility] Interpretation and review of laboratory results Normal [facility] Performed by: [address], [place] [address] CLIA ID: [id number] [facility] Joselito Rehman MD PhD 11/27/2024 1:21 PM [facility] [address] [id number] CONTINUOUS LONG-TERM VIDEO EEG MONITORING REPORT Patient Name: Franklin Burton : 1945 Date of Study: 11/27/2024 Duration Recorded: 13:50:00 EEG#: [id number] BILL RECAPITULATION CLERK: Alvaro HARDY PROVIDER REQUESTING STUDY: Erasmo Singh [...] evaluated at outside hospital and transferred to [facility] for further evaluation management. MEDICATIONS: Current Medications[1] TECHNICAL ASPECTS: This continuous scalp EEG study with video was carried out at [facility]. Scalp electrodes were positioned in person by an echo technologist, following patient education, according to the 10-20 International system of electrode placement and maintained for integrity and quality of the recording. An abbreviated set of electrodes was placed which included FP1/2, T7/8, C3/4, O1/2, Fz-Cz-Pz. EEG data with video was recorded continuously and digitally stored. The echo technologist reviewed all automated detections and manual [...] glucagon (human recombinant) (more content not included)... [facility] Interpretation and review of laboratory results Abnormal [facility] Performed by: [facility], [address] [place] [address] CLIA ID: [id number] [facility] PHOSPHORUSon 11-27-2024 Phosphate [Mass/Vol] 1.6 mg/dL Low 2.3-4.7 [facility] Comment on above: Performed By: #### L AB103, RXP897, LAB17 ####Regulatory Internship: LYNDSEY NICOLE ([id number])[facility] ([facility])[address] [place] [address] Phosphate [Moles/Vol]on 11-16 Interpretation and review of laboratory results Abnormal [facility] Phosphate [Mass/Vol] 1.6 mg/dL Low 2.3 - 4 .7 mg/dL [facility] Progress Noteon 11-27-2024 Progress Note -- Attestation signed by Fawad Ruiz MD at [...] DNR-CCA, ok for intubation Disposition: Transfer to [facility] Time spent preparing to see the patient, obtaining/reviewing separately obtained history, completing an appropriate medical examination of the patient, ordering medications/tests/proc edures, documenting clinical information on the EMR, and/or coordinating care is a subsequent visit: 35 minutes (Level II). Fawad Ruiz MD Pulmonary and Critical Care Medicine Attending Pager #[phone] ICU Progress Note Name: Franklin Burton : 1945(79 y.o.) Date: 11/27/24 Team: MICU Attending: Dr. Ruiz Subjective: Hospital Summary: 79 y/o M with PMHx ESRD on iHD, BPH, T2DM, Obesity, ROYAL, RLS, GPA, HFpEF (EF 50% on 11/25/24), chronic back pain with neuropathy who presented to [facility] as a transfer from outside facility [...] 87 (11/27/24599) Arterial BP MAP Temp 36.9 ?C (98.4 ?F) (11/27/24 0400) Pulse 80 (11/27/24599) Resp (!) 27 (11/27/24599) SpO2 96 % (11/27/24599) Weight 103 kg (228 lb) (11/25/24 1336) BMI Body mass index is 34.68 kg/m?. I/O: 11/26 699 - 11/27 658 In: 1510.3 [I.V.:1510.3] Out: 225 [Urine:225] Ventilator: Oxygen Delivery: O2 Flow Rate (L/min): 2 L/min Invasive Lines / Tubes / Drains: Peripheral IV 11/25/24 Anterior;Distal;Right; Upper Arm (Active) Number of days: 1 Peripheral [...] Normal [] Scar/Lesion/Mass Inspection of teeth/lips/gums Dentition: [][place] Teeth []Dentures Lips/Gums: []Intact []Lesion Present Mucosa: [][place] []Moist []Dry Neck: External Appearance Overall Appearance: []Normal []Lesion/Mass/Crepitus Present Trachea midline: []Yes []No Thyroid []Normal []Enlarged []Tender []Mass []Absent Respiratory: Respiratory effort []Labored [x]Non-Labored [] Mechanically-Ventilate d Auscultation [x]Clear []Crackles []Wheezes [][place] Cardiovascular: Auscultation Rate: [x]Regular []Irregular []Tachycardia []Bradycardia Rhythm: [x]Regular []Irregular Murmur: []Present [x]Absent Extremities Peripheral Edema: (more content not included)... Normal [facility] BLOOD GAS, VENOUSon 11-27-19 25 AMOUNT OF OXYGEN Normal [facility] Comment on above: Result Comment: KP Martínez COMMENTS: Assessment of oxygenation is best done with an arterial blood gas determination. Reference ranges for pO2, bicarbonate, and base excess are for mixed venous blood. Specimens drawn from a peripheral vein will often have higher values. Performed By: #### L [id number] ####Regulatory Internship: LYNDSEY NICOLE ([id number])[address] Base excess Calc (BldV) [Moles/Vol] -1.3000 mmol/L Normal -3.0-3.0 [facility] Comment on above: Performed By: #### L AB79 ####Regulatory Internship: LYNDSEY NICOLE ([id number])[facility])[address] [place] [address] CO2 [Moles/Vol] 26.0 mmol/L Normal 24.0-28.0 [facility] Comment on above: Performed By: #### L [id number] ####Regulatory Internship: LYNDSEY NICOLE ([id number])[facility])[address] [place] [address] HCO3 (Bld) [Moles/Vol] 24.6 mmol/L Normal 23.0-27.0 [facility] Comment on above: Performed By: #### L [id number] ####Regulatory Internship: LYNDSEY NICOLE ([id number])[facility] ([facility])[address] [place] [address] Hemoglobin (Bld) [Mass/Vol] 12.0 g/dL Normal Screen only [facility] Comment on above: Performed By: #### L [id number] ####Regulatory Internship: LYNDSEY NICOLE ([id number])[facility] ([facility])[address] [place] [address] OXYGEN (MM HG) IN VENOUS BLOOD 58.4 mm Hg Normal [facility] Comment on above: Performed By: #### L [id number] ####Regulatory Internship: LYNDSEY NICOLE ([id number])[facility] ([facility])[address] [place] [address] OXYGEN SATURATION (%) IN VENOUS BLOOD 87.5 % Normal [facility] Comment on above: Performed By: #### L AB79 ####Regulatory Internship: LYNDSEY NICOLE ([id number])[facility] ([facility])[address] [place] [address] PCO2, JANKI 46.2 mm Hg Normal 40.0-55.0 [facility] Comment on above: Performed By: #### L [id number] ####Regulatory Internship: LYNDSEY NICOLE ([id number])[facility] ([facility])[address] [place] [address] PH VENOUS 7.344 Normal 7.330-7.430 [facility] Comment on above: Performed By: #### L [id number] ####Regulatory Internship: LYNDSEY NICOLE ([id number])[facility] ([facility])[address] [place] [address] SOURCE OF OXYGEN Nasal Cannula (LPM) Normal [facility] Comment on above: Performed By: #### L AB79 ####Regulatory Internship: LYNDSEY NICOLE ([id number])[facility] ([facility])[address] [place] [address] CBC (HEMOGRAM)on 11-26-2024 Erythrocyte distribution width (RBC) [Ratio] 13.1 % Normal 11.5-15.0 [facility] Comment on above: Performed By: #### L [id number] ####Regulatory Internship: LYNDSEY NICOLE ([id number])[address] Hematocrit (Bld) [Volume fraction] 35.8 % Low 40.0-52.0 [facility] Comment on above: Performed By: #### L [id number] ####Regulatory Internship: LYNDSEY NICOLE ([id number])[facility])[address] [place] [address] Hemoglobin (Bld) [Mass/Vol] 11.6 g/dL Low 13.0-18.0 [facility] Comment on above: Performed By: #### L [id number] ####Regulatory Internship: LYNDSEY NICOLE ([id number])[address] MCH (RBC) [Entitic mass] 30.9 pg Normal 26.0-34.0 [facility] Comment on above: Performed By: #### L [id number] ####Regulatory Internship: LYNDSEY NICOLE ([id number])[address] MCHC 32.4 % Normal 30.5-36.0 [facility] Comment on above: Performed By: #### L [id number] ####Regulatory Internship: LYNDSEY NICOLE ([id number])[address] MCV (RBC) [Entitic vol] 95.5 fL Normal 77.0-99.0 [facility] Comment on above: Performed By: #### L [id number] ####Regulatory Internship: LYNDSEY NICOLE ([id number])[address] Platelet mean volume (Bld) [Entitic vol] 9.5 fL Normal 9.0-12.7 [facility] Comment on above: Performed By: #### L [id number] ####Regulatory Internship: LYNDSEY NICOLE ([id number])[facility])[address] [place] [address] Platelets (Bld) [#/Vol] 101 10*3/uL Low 140-440 [facility] Comment on above: Performed By: #### L [id number] ####Regulatory Internship: LYNDSEY NICOLE ([id number])[facility])[address] [place] [address] RBC (Bld) [#/Vol] 3.75 10*6/uL Low 4.40-5.90 [facility] Comment on above: Performed By: #### L [id number] ####Regulatory Internship: LYNDSEY NICOLE ([id number])[facility])[address] [place] [address] WBC (Bld) [#/Vol] 6.5 10*3/uL Normal 3.6-10.7 [facility] Comment on above: Performed By: #### L [id number] ####Regulatory Internship: LYNDSEY NICOLE ([id number])[facility])[address] [place] [address] CBC panel Auto (Bld)on 11-26 Erythrocyte distribution width (RBC) [Ratio] 13.1 % 11.5 - 15.0 % [facility] Hematocrit (Bld) [Volume fraction] 35.8 % Low 40.0 - 52.0 % [facility] Hemoglobin (Bld) [Mass/Vol] 11.6 g/dL Low 13.0 - 18.0 g/dL [facility] Interpretation and review of laboratory results Abnormal [facility] MCH (RBC) [Entitic mass] 30.9 pg 26.0 - 34.0 pg [facility] MCHC (RBC) [Mass/Vol] 32.4 % 30.5 - 36.0 % [facility] MCV (RBC) [Entitic vol] 95.5 fL 77.0 - 99.0 fL [facility] Platelet mean volume (Bld) [Entitic vol] 9.5 fL 9.0 - 12.7 fL [facility] Platelets (Bld) [#/Vol] 101 10*3/uL Low 140 - 440 10*3/uL [facility] RBC (Bld) [#/Vol] 3.75 10*6/uL Low 4.40 - 5.9 0 10*6/uL [facility] WBC (Bld) [#/Vol] 6.5 10*3/uL 3.6 - 10.7 10*3/uL [facility] COMPREHENSIVE METABOLIC PANE Jase 11-26-2024 Albumin [Mass/Vol] 3.4 g/dL Normal 3.4-4.8 [facility] Comment on above: Performed By: #### L AB113, [id number], LAB17, [id number] ####Regulatory Internship: LYNDSEY NICOLE ([id number])[facility])[address] [place] [address] ALP [Catalytic activity/Vol] 81 U/L Normal 40-150 [facility] Comment on above: Performed By: #### L AB113, [id number], LAB17, [id number] ####Regulatory Internship: LYNDSEY NICOLE ([id number])[facility] ([facility])[address] [place] [address] ALT [Catalytic activity/Vol] 10 U/L Normal <40 [facility] Comment on above: Performed By: #### L AB113, [id number], LAB17, [id number] ####Regulatory Internship: LYNDSEY NICOLE ([id number])[facility] ([facility])[address] [place] [address] Anion gap [Moles/Vol] 4 mmol/L Normal 3-13 [facility] Comment on above: Performed By: #### L AB113, [id number], LAB17, [id number] ####Regulatory Internship: LYNDESY NICOLE ([id number])[facility])[address] [place] [address] AST [Catalytic activity/Vol] 25 U/L Normal <34 [facility] Comment on above: Performed By: #### L AB113, [id number], LAB17, [id number] ####Regulatory Internship: LYNDSEY NICOLE ([id number])[facility])[address] [place] [address] Bilirubin [Mass/Vol] 0.8 mg/dL Normal <1.2 [facility] Comment on above: Performed By: #### L AB113, [id number], LAB17, [id number] ####Regulatory Internship: LYNDSEY NICOLE ([id number])[facility])[address] [place] [address] Calcium [Mass/Vol] 9.0 mg/dL Normal 8.8-10.0 [facility] Comment on above: Performed By: #### L AB113, NFU757, LAB17, [id number] ####Regulatory Internship: LYNDSEY NICOLE ([id number])[facility])[address] [place] [address] Chloride [Moles/Vol] 102 mmol/L Normal 98-107 [facility] Comment on above: Performed By: #### L AB113, [id number], LAB17, [id number] ####Regulatory Internship: LYNDSEY NICOLE ([id number])[facility] ([facility])[address] [place] [address] CO2 [Moles/Vol] 24 mmol/L Normal 23-31 [facility] Comment on above: Performed By: #### L AB113, HLO018, LAB17, [id number] ####Regulatory Internship: LYNDSEY NICOLE ([id number])[facility])[address] [place] [address] Creatinine [Mass/Vol] 3.67 mg/dL High 0.72-1.25 [facility] Comment on above: Performed By: #### L AB113, [id number], LAB17, [id number] ####Regulatory Internship: LYNDSEY NICOLE ([id number])[facility])[address] [place] [address] GLOMERULAR FILTRATION RATE ML/MIN/1.73 SQ M.PREDICTED 16.2 mL/min/1.73m*2 Low >60.0 [facility] Comment on above: Result Comment: Calc ulation based on the Chronic Kidney Disease Epidemiology Collaboration (CKD-EPI) equation refit without adjustment for race Performed By: #### L AB113, RRC528, LAB17, [id number] ####Regulatory Internship: LYNDSEY NICOLE ([id number])[facility])[address] [place] [address] Glucose [Mass/Vol] 108 mg/dL Normal 82-115 [facility] Comment on above: Performed By: #### L AB113, SRD010, LAB17, [id number] ####Regulatory Internship: LYNDSEY NICOLE ([id number])[facility])[address] [place] [address] Potassium [Moles/Vol] 5.6 mmol/L High 3.5-5.1 [facility] Comment on above: Result Comment: [facility] potassium values may be up to 0.5 mmol/L lower than serum values. Performed By: #### L AB113, VID726, LAB17, [id number] ####Regulatory Internship: LYNDSEY NICOLE ([id number])[facility])[address] [place] [address] Protein [Mass/Vol] 6.5 g/dL Normal 6.4-8.3 [facility] Comment on above: Performed By: #### L AB113, PQS087, LAB17, [id number] ####Regulatory Internship: LYNDSEY NICOLE ([id number])[facility])[address] [place] [address] Sodium [Moles/Vol] 130 mmol/L Low 136-145 [facility] Comment on above: Performed By: #### L AB113, OPY273, LAB17, [id number] ####Regulatory Internship: LYNDSEY NICOLE ([id number])[facility])[address] [place] [address] [place] Urea nitrogen [Mass/Vol] 18 mg/dL Normal 9-23 [facility] Comment on above: Performed By: #### L AB113, [id number], LAB17, [id number] ####Regulatory Internship: LYNDSEY NICOLE ([id number])[facility] [place] [address] Comprehensive metabolic 1998 panelOrdered By: Maribeth Carlson on 11-26-2024 Albumin [Mass/Vol] 3.4 g/dL 3.4 - 4.8 g/dL [facility] ALP [Catalytic activity/Vol] 81 U/L 40 - 150 U/L [facility] ALT [Catalytic activity/Vol] 10 U/L NINF - 40 U/L [facility] Anion gap [Moles/Vol] 4 mmol/L 3 - 13 mmol/L [facility] AST [Catalytic activity/Vol] 25 U/L NINF - 34 U/L [facility] Bilirubin [Mass/Vol] 0.8 mg/dL NINF - 1.2 mg/dL [facility] Calcium [Mass/Vol] 9 mg/dL 8.8 - 10. 0 mg/dL [facility] Chloride [Moles/Vol] 102 mmol/L 98 - 10 7 mmol/L [facility] CO2 [Moles/Vol] 24 mmol/L 23 - 31 mmol/L [facility] Creatinine [Mass/Vol] 3.67 mg/dL High 0.72 - 1.25 mg/dL [facility] GFR/1.73 sq M.predicted (S/P/Bld) [Vol rate/Area] 16.2 mL/min Low - PINF [facility] Comment on above: Calculation based on the Chronic Kidney Disease Epidemiology Collaboration (CKD-EPI) equation refit without adjustment for race Glucose [Mass/Vol] 108 mg/dL 82 - 115 mg/dL [facility] Interpretation and review of laboratory results Abnormal [facility] Potassium [Moles/Vol] 5.6 mmol/L High 3.5 - 5.1 mmol/L [facility] Comment on above: Plasma potassium carson ues may be up to 0.5 mmol/L lower than serum values. Protein [Mass/Vol] 6.5 g/dL 6.4 - 8.3 g/dL [facility] Sodium [Moles/Vol] 130 mmol/L Low 136 - 145 mmol/L [facility] Urea nitrogen [Mass/Vol] 18 mg/dL 9 - 23 mg/dL [facility] Consulton 11-26-2024 Consult Acknowledges case management consult. Case management will follow for discharge planning. Normal [facility] Consult [facility] Geriatric Medicine Inpatient Consult Service Admission Date: 11/25/2024 Admission Status: INPATIENT Reason for Appointment No chief complaint on file. Geriatrics consulted for rec confusion Assessment Principal Problem: Stroke-like symptoms Active Problems: Stroke-like symptom Plan During this encounter, I spent 55 minutes -Reviewing previous notes, -Reviewing labs, -Obtaining and/or reviewing separately obtained history, -Counseling/educating the patient/family/caregiv er, -Documenting clinical information in the patients electronic [...] for prevention and treatment of delirium: - redirect/reorient/reas sure frequently - avoid restraints and instead utilize [...] - Cognitive Impairment -Plan for f/up with [facility]. - He does endorse some worsening memory and his [id number] and other family members endorse concern for [...] was transferred from an outside hospital to [facility]. Per review of history and physical episode [...] changes noted. Collateral history obtained from , [id number]. Feels that this memory is slipping away. [...] of altered (more content not included)... Normal [facility] HIGH SENSITIVITY TROPONIN, Bubba YUNG, THIRD TESTon 11-26-2024 4H TROPONIN HS (SERIAL 3RD TROPONIN) 16 ng/L Normal <=35 [facility] Comment on above: Result Comment: 4h t roponin (3rd troponin) samples collected between 1h 40 min and 2h and 20 min of the 2h troponin collection time can be utilized to interpret delta troponins as per [facility] algorithms. Samples collected outside this timeframe need to be interpreted clinically. Rising or falling troponin delta between 2 ??? 15 ng/L as compared to 2h troponin value requires further evaluation. Performed By: #### L AB113, [id number], LAB17, [id number] ####Regulatory Internship: LYNDSEY NICOLE ([id number])[facility] ([facility])[address] [place] [address] Laboratory - Chemistry and C hemistry - challengeOrdered By: Glen Rod on 11-26-2024 Base excess Calc (BldV) [Moles/Vol] -1.3000 mmol/L -3.0 - 3.0 mmol/L [facility] CO2 (BldV) [Partial pressure] 46.2 mm[Hg] [facility] CO2 [Moles/Vol] 26 mmol/L 24.0 - 28.0 mmol/L [facility] HCO3 (Bld) [Moles/Vol] 24.6 mmol/L 23.0 - 27.0 mmol/L [facility] Oxygen (BldV) [Partial pressure] 58.4 mm[Hg] mm Hg [facility] pH (BldV) 7.344 [pH] 7.330 - 7.430 [facility] Laboratory - Chemistry and C hemistry - challengeon 11-26-2024 Glucose [Mass/Vol] 104 mg/dL High 70 - 100 mg/dL [facility] Magnesium [Mass/Vol] 2 mg/dL 1.6 - 2 .6 mg/dL [facility] Glucose [Mass/Vol] 111 mg/dL High 70 - 100 mg/dL [facility] Laboratory - Hematology and Cell countsOrdered By: Glen Rod on 11-26-2024 Hemoglobin (Bld) [Mass/Vol] 12 g/dL 7.0 g/dl [facility] MAGNESIUMon 11-26-2024 Magnesium [Mass/Vol] 2.0 mg/dL Normal 1.6-2.6 [facility] Comment on above: Result Comment: KP Martínez COMMENTS: Higher values can be expected in females during menses. Performed By: #### L AB113, [id number], LAB17, [id number] ####Regulatory Internship: LYNDSEY NICOLE ([id number])[facility] ([facility])[address] [place] [address] MR Brain WO contraston 11-26 Radiology Study observation (narrative) [facility] Magnesium [Mass/Vol]on 11-26 Interpretation and review of laboratory results Normal [facility] Higher values can be expected in females during menses. [facility] No Panel Informationon 11-26 Joselito Rehman MD PhD 11/27/2024 1:16 PM [facility] [address] [place] [address] CONTINUOUS LONG-TERM VIDEO EEG MONITORING REPORT Patient Name: Franklin Burton : 1945 Date of Study: 11/26/2024 Duration Recorded: 18:45:43 EEG#: [id number] BILL RECAPITULATION CLERK: Alvaro HARDY PROVIDER REQUESTING STUDY: Erasmo Singh [...] evaluated at outside hospital and transferred to [facility] for further evaluation management. MEDICATIONS: Current Medications[1] TECHNICAL ASPECTS: This continuous scalp EEG study with video was carried out at [facility]. Scalp electrodes were positioned in person by an echo technologist, following patient education, according to the 10-20 International system of electrode placement and maintained for integrity and quality of the recording. An abbreviated set of electrodes was placed which included FP1/2, T7/8, C3/4, O1/2, Fz-Cz-Pz. EEG data with video was recorded continuously and digitally stored. The echo technologist reviewed all automated detections and manual [...] 50 mg 50 mg Oral Lunch Erasmo Yoseph Kabellar, DO bisacodyl (Dulcolax) suppository 10 mg 10 [...] Singh DO gluc (more content not included)... [facility] Interpretation and review of laboratory results Abnormal [facility] Performed by: [place] [address] CLIA ID: [id number] [facility] 4h Troponin HS (Serial 3rd Troponin) 16 ng/L NINF - 35 ng/L [facility] Comment on above: 4h troponin (3rd tro ponin) samples collected between 1h 40 min and 2h and 20 min of the 2h troponin collection time can be utilized to interpret delta troponins as per [facility] algorithms. Samples collected outside this timeframe need to be interpreted clinically. Rising or falling troponin delta between 2 15 ng/L as compared to 2h troponin value requires further evaluation. Interpretation and review of laboratory results Normal [facility] Interpretation and review of laboratory results Abnormal [facility] Performed by: [address] [address] CLIA ID: [id number] [facility] No Panel InformationOrdered By: Glen Rod on 11-26-2024 Amount Of Oxygen [facility] [place] Source Of Oxygen Nasal Cannula (LPM) [facility] Assessment of oxygenation is best done with an arterial blood gas determination. Reference ranges for pO2, bicarbonate, and base excess are for mixed venous blood. Specimens drawn from a peripheral vein will often have higher values. [facility] Nursing Noteon 11-26-2024 Nursing Note 2L removed [...] Left Upper arm Placement Date/Time: 11/25/24 (c) 184 Earliest Known Present: 11/25/24 Orientation: Left Access [...] ICU/ED $ IP Hemodialysis Charge Hemodialysis Normal [facility] PHOSPHORUSon 11-26-2024 Phosphate [Mass/Vol] 2.7 mg/dL Normal 2.3-4.7 [facility] Comment on above: Performed By: #### L AB113, [id number], LAB17, [id number] ####Regulatory Internship: LYNDSEY NICOLE ([id number])[facility] ([address] Phosphate [Moles/Vol]on 11-16 Interpretation and review of laboratory results Normal [facility] Phosphate [Mass/Vol] 2.7 mg/dL 2.3 - 4 .7 mg/dL [facility] Progress Noteon 11-26-2024 Progress Note Nutrition Assessment [...] management of agitation. Pt calm this a.m. YARD OPERATOR evaluated today and recommends a pureed solids and Thin liquids and meds crushed in puree diet; pt is on same. Multiple staff in room, unable to interview pt. Estimated Daily Nutrient Needs: Energy Requirements Based On: Kcal/kg Weight Used for Energy Requirements: [place] Weight for Energy Calculation (kg): 70 kg Total Energy Requirements (kcals/day): 25-30 kcals/kg = 2082-6571 kcals/day Weight Used for Protein Requirements: [place] Weight in Kg Used for Protein Requirements: [...] Ordered Anthropometric Measures: Height: 172.7 cm (5' 7.99) Current Body Weight: 103 kg (227 lb 1.2 oz) [place] Body Weight (lbs) (Calculated): 154 lbs [place] Body Weight (Kg) (Calculated): 70 kg % [place] Body Weight (Calculated): 147.5 % BMI (kg/m2) [...] soon to determine Yana Pulido RD,LD,CNSC Contact: *[phone] or Kenneth Prado [1] atorvastatin, 40 mg, Oral, Nightly azaTHIOprine, [...] mL/hr (0 (more content not included)... Normal [facility] Progress Note General Neurology Follow-up Date of Service: 11/26/2024 Chief complaint: Encephalopathy Subjective: Much improved in mentation today, in the ICU, off the Precedex drip Medications: Scheduled Meds:Scheduled Meds[1] Continuous Infusions:Continuous Meds[2] PRN Meds:PRN Meds[3] Allergies[4] Objective: Exam: BP 143/79 Pulse 90 Temp 36.6 ?C (97.9 ?F) Resp 21 Ht 5' 7.99 (1.727 m) Wt 228 lb (103 kg) [...] Sensation grossly intact to fine touch, COORDINATION: Vrkier-mx-gseg normal for age and symmetric. Data: LABS: [...] Time: 11/26/24 (more content not included)... Normal [facility] Progress Note PHYSICAL THERAPY [facility] Name/MRN: Franklin Burton ([id number]) Date: 11/26/2024 Attempt note Pt on iHD. Will re-attempt as able. Andrés Calhoun, PT Normal [facility] Progress Note Speech-Language Pathology SPEECH LANGUAGE PATHOLOGY [facility] Dysphagia Treatment Note Patient Name: Franklin Burton Evaluation Date: 11/26/2024 Date of : 1945 Admission Date: 11/25/2024 5:45 AM Age: 79 y.o. Room/Bed: T2-207/T2 A Subjective Patient lethargic and cooperative. Seen [...] to removal so it can soak in carbon lamp cleaner. Patient with minimal dried secretions in [...] tolerance and advance as able. Continue acute YARD OPERATOR therapy per initial plan of care and [...] End: 12/09/24 Patient will demonstrate safe swallowing Intervention/technique s (Progressing) Start: 11/25/24 Expected End: 12/09/24 Patient will participate in repeat clinical dysphagia evaluation (Completed) Start: 11/25/24 Expected End: 12/09/24 Resolved: 11/26/24 Therapy Time YARD OPERATOR Individual Minutes Time In: 0848 Time Out: 902 Minutes: 15 JAILENE Trujillo [facility] Progress Note -- Attestation signed by Fawad Ruiz MD at [...] appropriate medical examination of the patient, ordering medications/tests/proc edures, documenting clinical information on the EMR, and/or coordinating care is a subsequent visit: 35 minutes (Level II). Fawad Ruiz MD Pulmonary and Critical Care Medicine Attending Pager #[phone] ICU Progress Note Name: Franklin Burton : 1945(79 y.o.) Date: 11/26/24 Team: MICU Attending: Dr. Ruiz Subjective: Hospital Summary: 79 y/o M with PMHx ESRD on iHD, BPH, T2DM, Obesity, ROYAL, RLS, GPA, HFpEF (EF 50% on 11/25/24), chronic back pain with neuropathy who presented to [facility] as a transfer from outside facility [...] Meds[2] Objective: Last Vitals: BP MAP 122/67 (11/26/24 07) 84 (11/26/24699) Arterial BP MAP Temp 36.2 ?C (97.1 ?F) (11/26/24 0400) Pulse 67 (11/26/24699) Resp 24 (11/26/24 07) SpO2 100 % (11/26/24699) Weight 103 kg (228 lb) (11/25/24 1336) BMI Body mass index is 34.67 kg/m?. I/O: 11/25 699 - 11/26 658 In: 189.8 [I.V.:189.8] Out: 300 [Urine:300] Ventilator: Oxygen Delivery: O2 Flow Rate (L/min): 2 L/min Invasive Lines / Tubes / Drains: Peripheral IV 11/25/24 Anterior;Distal;Right; Upper Arm (Active) Number of days: 1 Peripheral [...] Normal [] Scar/Lesion/Mass Inspection of teeth/lips/gums Dentition: [][place] Teeth []Dentures Lips/Gums: []Intact []Lesion Present Mucosa: [][place] []Moist []Dry Neck: External Appearance Overall Appearance: []Normal []Lesion/Mass/Crepitus Present Trachea midline: []Yes []No Thyroid []Normal []Enlarged []Tender []Mass []Absent Respiratory: Respiratory effort []Labored [x]Non-Labored [] Mechanically-Ventilate d Auscultation [x]Clear []Crackl (more content not included)... Normal [facility] Vital signsOrdered By: Rickey Rod on 11-26-2024 Oxygen saturation in Venous blood 87.5 % [facility] 30on 11-25-2024 30 Problem: Knowledge Deficit Goal: Patient/family/caregiv er demonstrates understanding of disease process, treatment plan, medications, and discharge instructions 11/25/20241616 by Katheryn Wong RN Outcome: Progressing 11/25/2024 100 by Katheryn Wong RN Outcome: Progressing Problem: Neurological Deficit Goal: Neurological status is stable or improving 11/25/20241616 by Katheryn Wong RN Outcome: Progressing 11/25/2024 100 by Katheryn Wong RN Outcome: Progressing Problem: Activity Intolerance/Impaired Mobility Goal: Mobility/activity is maintained at optimum level for patient 11/25/20241616 by Katheryn Wong RN Outcome: Progressing 11/25/2024 100 by Katheryn Wong RN Outcome: Progressing Problem: Potential for Aspiration Goal: Non-ventilated patient's risk of aspiration is minimized 11/25/20241616 by Katheryn Wong RN Outcome: Progressing 11/25/2024 1009 by Katheryn Wong RN Outcome: Progressing Normal [facility] 30 Problem: Knowledge Deficit Goal: Patient/family/caregiv er demonstrates understanding of disease process, treatment plan, medications, and discharge instructions Outcome: Progressing Problem: Neurological Deficit Goal: Neurological status is stable or improving Outcome: Progressing Problem: Activity Intolerance/Impaired Mobility Goal: Mobility/activity is maintained at optimum level for patient Outcome: Progressing Problem: Potential for Aspiration Goal: Non-ventilated patient's risk of aspiration is minimized Outcome: Progressing Normal [facility] AMMONIAon 11-25-2024 Ammonia (P) [Moles/Vol] 20 umol/L Normal 18-72 [facility] Comment on above: Performed By: #### L [id number] ####Regulatory Internship: LYNDSEY NICOLE ([id number])[address] BLOOD CULTUREon 11-25-2024 Bacteria identified Cx Nom (Bld) BLOOD CULTURE Reference No growth at 5 days ORDER COMMENTS: Blood Collection Site: Right Antecubital [ S = SUSCEPTIBLE R = RESISTANT I = INTERMEDIATE S-DD = Susceptible-dose dependent NS = Non-susceptible NO = No Interpretation ] Normal [facility] Comment on above: Performed By: #### L [id number] #### Regulatory Internship: LYNDSEY NICOLE ([id number]) [address] Bacteria identified Cx Nom (Bld) BLOOD CULTURE Reference No growth at 5 days ORDER COMMENTS: Blood Collection Site: Left Forearm [ S = SUSCEPTIBLE R = RESISTANT I = INTERMEDIATE S-DD = Susceptible-dose dependent NS = Non-susceptible NO = No Interpretation ] Normal [facility] Comment on above: Performed By: #### L [id number] ####Regulatory Internship: LYNDSEY NICOLE ([id number])[address] CBC (HEMOGRAM)on 11-25-2024 Erythrocyte distribution width (RBC) [Ratio] 13.2 % Normal 11.5-15.0 [facility] Comment on above: Performed By: #### L [id number] ####Regulatory Internship: LYNDSEY [id number])[facility] ([facility])[address] [place] [address] Hematocrit (Bld) [Volume fraction] 35.2 % Low 40.0-52.0 [facility] Comment on above: Performed By: #### L [id number] ####Regulatory Internship: LYNDSEY NICOLE ([id number])[facility] ([facility])[address] [place] [address] Hemoglobin (Bld) [Mass/Vol] 11.3 g/dL Low 13.0-18.0 [facility] Comment on above: Performed By: #### L [id number] ####Regulatory Internship: LYNDSEY NICOLE ([id number])[facility] ([facility])[address] [place] [address] MCH (RBC) [Entitic mass] 30.8 pg Normal 26.0-34.0 [facility] Comment on above: Performed By: #### L AB294 ####Regulatory Internship: LYNDSEY NICOLE ([id number])[facility] ([facility])[address] [place] [address] MCHC 32.1 % Normal 30.5-36.0 [facility] Comment on above: Performed By: #### L [id number] ####Regulatory Internship: LYNDSEY NICOLE ([id number])[facility] ([facility])[address] [place] [address] MCV (RBC) [Entitic vol] 95.9 fL Normal 77.0-99.0 [facility] Comment on above: Performed By: #### L [id number] ####Regulatory Internship: LYNDSEY NICOLE ([id number])[facility] ([facility])[address] [place] [address] Platelet mean volume (Bld) [Entitic vol] 9.7 fL Normal 9.0-12.7 [facility] Comment on above: Performed By: #### L [id number] ####Regulatory Internship: LYNDSEY NICOLE ([id number])[facility] ([facility])[address] [place] [address] [place] Platelets (Bld) [#/Vol] 114 10*3/uL Low 140-440 [facility] Comment on above: Performed By: #### L [id number] ####Regulatory Internship: LYNDSEY NICOLE ([id number])[facility])[address] [place] [address] RBC (Bld) [#/Vol] 3.67 10*6/uL Low 4.40-5.90 [facility] Comment on above: Performed By: #### L [id number] ####Regulatory Internship: LYNDSEY NICOLE ([id number])[facility] ([facility])[address] [place] [address] WBC (Bld) [#/Vol] 6.3 10*3/uL Normal 3.6-10.7 [facility] Comment on above: Performed By: #### L [id number] ####Regulatory Internship: LYNDSEY NICOLE ([id number])[facility])[address] [place] [address] CBC panel Auto (Bld)on 11-25 Erythrocyte distribution width (RBC) [Ratio] 13.2 % 11.5 - 15.0 % [facility] Hematocrit (Bld) [Volume fraction] 35.2 % Low 40.0 - 52.0 % [facility] Hemoglobin (Bld) [Mass/Vol] 11.3 g/dL Low 13.0 - 18.0 g/dL [facility] Interpretation and review of laboratory results Abnormal [facility] MCH (RBC) [Entitic mass] 30.8 pg 26.0 - 34.0 pg [facility] MCHC (RBC) [Mass/Vol] 32.1 % 30.5 - 36.0 % [facility] MCV (RBC) [Entitic vol] 95.9 fL 77.0 - 99.0 fL [facility] Platelet mean volume (Bld) [Entitic vol] 9.7 fL 9.0 - 12.7 fL [facility] Platelets (Bld) [#/Vol] 114 10*3/uL Low 140 - 440 10*3/uL [facility] RBC (Bld) [#/Vol] 3.67 10*6/uL Low 4.40 - 5.9 0 10*6/uL [facility] WBC (Bld) [#/Vol] 6.3 10*3/uL 3.6 - 10.7 10*3/uL [facility] COMPREHENSIVE METABOLIC PANE Jase 11-25-2024 Albumin [Mass/Vol] 3.7 g/dL Normal 3.4-4.8 [facility] Comment on above: Performed By: #### L AB67, LAB17, LAB18, [id number] ####Regulatory Internship: LYNDSEY NICOLE ([id number])[facility] ([facility])[address] [place] [address] ALP [Catalytic activity/Vol] 81 U/L Normal 40-150 [facility] Comment on above: Performed By: #### Jin AB67, LAB17, LAB18, [id number] ####Regulatory Internship: LYNDSEY NICOLE ([id number])[facility] ([facility])[address] [place] [address] ALT [Catalytic activity/Vol] 13 U/L Normal <40 [facility] Comment on above: Performed By: #### Jin AB67, LAB17, LAB18, [id number] ####Regulatory Internship: LYNDSEY NICOLE ([id number])[facility] ([facility])[address] [place] [address] Anion gap [Moles/Vol] 5 mmol/L Normal 3-13 [facility] Comment on above: Performed By: #### Jin AB67, LAB17, LAB18, [id number] ####Regulatory Internship: LYNDSEY NICOLE ([id number])[facility] ([facility])[address] [place] [address] AST [Catalytic activity/Vol] 22 U/L Normal <34 [facility] Comment on above: Performed By: #### Jin AB67, LAB17, LAB18, [id number] ####Regulatory Internship: LYNDSEY NICOLE ([id number])[facility])[address] [place] [address] Bilirubin [Mass/Vol] 0.6 mg/dL Normal <1.2 [facility] Comment on above: Performed By: #### Jin AB67, LAB17, LAB18, [id number] ####Regulatory Internship: LYNDSEY NICOLE ([id number])[facility])[address] [place] [address] Calcium [Mass/Vol] 9.2 mg/dL Normal 8.8-10.0 [facility] Comment on above: Performed By: #### Jin AB67, LAB17, LAB18, [id number] ####Regulatory Internship: LYNDSEY NICOLE ([id number])[facility] ([facility])[address] [place] [address] Chloride [Moles/Vol] 101 mmol/L Normal 98-107 [facility] Comment on above: Performed By: #### Jin AB67, LAB17, LAB18, [id number] ####Regulatory Internship: LYNDSEY NICOLE ([id number])[facility] ([facility])[address] [place] [address] CO2 [Moles/Vol] 27 mmol/L Normal 23-31 [facility] Comment on above: Performed By: #### Jin FELICIANO, LAB17, LAB18, [id number] ####Regulatory Internship: LYNDSEY NICOLE ([id number])[facility] ([facility])[address] [place] [address] Creatinine [Mass/Vol] 3.06 mg/dL High 0.72-1.25 [facility] Comment on above: Performed By: #### Jin ABPhilip, LAB17, LAB18, [id number] ####Regulatory Internship: LYNDSEY NICOLE ([id number])[facility] ([facility])[address] [place] [address] [place] GLOMERULAR FILTRATION RATE ML/MIN/1.73 SQ M.PREDICTED 20.1 mL/min/1.73m*2 Low >60.0 [facility] Comment on above: Result Comment: Calc ulation based on the Chronic Kidney Disease Epidemiology Collaboration (CKD-EPI) equation refit without adjustment for race Performed By: #### L AB67, LAB17, LAB18, [id number] ####Regulatory Internship: LYNDSEY NICOLE ([id number])[facility] ([facility])[address] [place] [address] Glucose [Mass/Vol] 103 mg/dL Normal 82-115 [facility] Comment on above: Performed By: #### L AB67, LAB17, LAB18, [id number] ####Regulatory Internship: LYNDSEY NICOLE ([id number])[facility] ([facility])[address] [place] [address] Potassium [Moles/Vol] 4.6 mmol/L Normal 3.5-5.1 [facility] Comment on above: Result Comment: [facility] potassium values may be up to 0.5 mmol/L lower than serum values. Performed By: #### L AB67, LAB17, LAB18, [id number] ####Regulatory Internship: LYNDSEY NICOLE ([id number])[facility] ([facility])[address] [place] [address] Protein [Mass/Vol] 6.8 g/dL Normal 6.4-8.3 [facility] Comment on above: Performed By: #### L AB67, LAB17, LAB18, [id number] ####Regulatory Internship: LYNDSEY NICOLE ([id number])[facility] ([facility])[address] [place] [address] Sodium [Moles/Vol] 133 mmol/L Low 136-145 [facility] Comment on above: Performed By: #### L AB67, LAB17, LAB18, [id number] ####Regulatory Internship: LYNDSEY NICOLE ([id number])[facility] ([facility])[address] [place] [address] [place] Urea nitrogen [Mass/Vol] 13 mg/dL Normal 9-23 [facility] Comment on above: Performed By: #### L AB67, LAB17, LAB18, [id number] ####Regulatory Internship: LYNDSEY NICOLE ([id number])[facility])[address] [place] [address] [place] [address] HEAD WO IV CONTRASTon CT HEAD [...] out of it. Won't hold still Normal [facility] CT Head WO contraston 2024 1. No acute intracranial abnormality. 2. Diffuse cortical volume loss and chronic small vessel ischemic changes. Report Dictated on Electronically Signed By: Mehreen Vargas MD Electronically Signed Date/Time: 11/25/2024 11:35 AM EDT [facility] Patient Name: FRANKLIN BURTON : [...] CELLS: Unremarkable as visualized. No mastoid effusion. [facility] Mehreen Vargas M D - 11/25/2024 [facility] Name: [facility]ANK[facility]UR[facility] : 1945 [id number] Exam Date/Time: 11/25/2024 10:53 Procedure: CT HEAD [...] Electronically Signed Date/Time: 11/25/2024 11:35 AM EDT [facility] Radiology Study observation (narrative) [facility] Cobalamin (Vitamin B12) [Mas s/Vol]on 11-25-2024 Interpretation and review of laboratory results Normal [facility] Comprehensive metabolic 1998 panelon 11-25-2024 Albumin [Mass/Vol] 3.7 g/dL 3.4 - 4.8 g/dL [facility] ALP [Catalytic activity/Vol] 81 U/L 40 - 150 U/L [facility] ALT [Catalytic activity/Vol] 13 U/L NINF - 40 U/L [facility] Anion gap [Moles/Vol] 5 mmol/L 3 - 13 mmol/L [facility] AST [Catalytic activity/Vol] 22 U/L NINF - 34 U/L [facility] Bilirubin [Mass/Vol] 0.6 mg/dL NINF - 1.2 mg/dL [facility] Calcium [Mass/Vol] 9.2 mg/dL 8.8 - 10. 0 mg/dL [facility] Chloride [Moles/Vol] 101 mmol/L 98 - 10 7 mmol/L [facility] CO2 [Moles/Vol] 27 mmol/L 23 - 31 mmol/L [facility] Creatinine [Mass/Vol] 3.06 mg/dL High 0.72 - 1.25 mg/dL [facility] GFR/1.73 sq M.predicted (S/P/Bld) [Vol rate/Area] 20.1 mL/min Low - PINF [facility] Comment on above: Calculation based on the Chronic Kidney Disease Epidemiology Collaboration (CKD-EPI) equation refit without adjustment for race Glucose [Mass/Vol] 103 mg/dL 82 - 115 mg/dL [facility] Potassium [Moles/Vol] 4.6 mmol/L 3.5 - 5.1 mmol/L [facility] Comment on above: Plasma potassium carson ues may be up to 0.5 mmol/L lower than serum values. Protein [Mass/Vol] 6.8 g/dL 6.4 - 8.3 g/dL [facility] Sodium [Moles/Vol] 133 mmol/L Low 136 - 145 mmol/L [facility] Urea nitrogen [Mass/Vol] 13 mg/dL 9 - 23 mg/dL [facility] Consulton 11-25-2024 Consult -- Attestation signed by Fawad Ruiz MD at [...] []No Sclera: []Icteric [x]Non-Icteric Inspection of Conjunctiva/Lids Conjunctiva:[]Injected [x]Non-Injected Lids: [x]Intact []Lesion Present ENT/Mouth: External Inspection of ears/nose [x] Normal [] Scar/Lesion/Mass Inspection of teeth/lips/gums Dentition:[][place] Teeth []Dentures Lips/Gums:[x]Intact []Lesion Present Mucosa: [x][place] [x]Moist []Dry Neck: External Appearance Overall Appearance:[x]Normal []Lesion/Mass/Crepitus Present Trachea midline:[x]Yes []No Thyroid [x]Normal []Enlarged []Tender []Mass []Absent Respiratory: Respiratory effort []Labored[x]Non-Labore d[] Mechanically-Ventilate d Auscultation [x]Clear[]Crackles[]Wh eezes[][place]honchi Cardiovascular: Auscultation Rate: [x]Regular[]Irregular []Tachycardia []Bradycardia Rhythm:[x]Regular []Irregular Murmur:[]Present[x]Abs ent Extremities Peripheral Edema:[]Present [x]Absent Varicosities: []Present []Absent Gastrointestinal: Abdomen Palpation: [x]Soft []Firm[]Tender[x]Non-T delphine []Distended [x]Non-distended Mass: []Present [x]Absent Bowel Sounds:[x]Present []Absent Hernia:[]Present []Absent Liver/Spleen:[]Hepatos plenomegaly []Organomegaly Absent Musculoskeletal: Inspection of Digits and Nails Cyanosis:[]Present [x]Absent Clubbing:[]Present [x]Absent Ischemia:[]Present [x]Absent Infection:[]Present [x]Absent Extremities CROOKS Equally: Except ([]RUE []RLE []LUE []LLE) Strength/Tone: Intact and Normal ([x]RUE [x]RLE [x]LUE [x]LLE) Skin: Inspection [x]Normal[]Rash[]Lesio n[]Ulcer Palpation [x]Warm []Cool []Dry []Clammy []Nodules []Induration [...] appropriate medical examination of the patient, ordering medications/tests/proc edures, documenting clinical information on the EMR, and/or coordinating care is an initial visit: 75 minutes (Level III). Fawda Ruiz MD Pulmonary and Critical Care Medicine Attending Pager #[phone] ----- (more content not included)... [facility] Consult Nephrology Consult Note Patient: Franklin Burton Room number: [id number] A Date of Admit: 11/25/2024 LOS: 0 days Referring physician: Taylor Weinberg MD Outpatient Motor Polarizer: [facility] Reason for Consult ESRD on HD Chief complaint: AMS Assessment / Plan Franklin Burton is a 79 y.o. male with a past medical history of ESRD on HD MWF at [facility], GPA, DM type 2, HTN, HFrEF, [...] call with any questions. Aleyda Martinez MD [facility] ([facility]) Office phone: [phone] Office fax: [phone] 11/25/2024 History of Present Illness Franklin Burton is a 79 y.o. male with a past medical history of ESRD on HD MWF at [facility], [facility], DM type 2, HTN, HFrEF, BPH, GERD, ROYAL, OA, obesity, RLS, neuropathy, who was brought in from OSH due to AMS. Pt had HD yesterday and went home, then woke up agitated, feeling nauseated and confused. He was brought to [facility], then here to [facility]. Upon transfer here, his temp was [...] 07/24/2016 no diabetes GERD (gastroesophageal reflux disease) [place] (hard of hearing) RIGHT EAR AND HAS [...] Colon cancer Sister 70.00 Colon cancer Brother [place] 70.00 Prostate cancer Father Lung cancer Father [...] kg (228 lb) Height: 1.727 m (5' 8) Wt Readings from Last 3 Enc (more content not included)... Normal [employer] [facility] ECG 12-LEADon 11-25-2024 ECG 12-LEAD IMPRESSION: Sinus rhythm Occasional PAC Baseline wander in multiple leads Electronically Signed On 11-25-2024 07:44:47 EDT by Evan Hyman Normal [facility] HBV surface Ab IA Qnon 11-25 Interpretation: <8.0 Non-Reactive 8.0-11.9 Equivocal >= 12.0 Ab Detected Note: If an equivocal result is interpreted, an antibody status is unable to be determined. Collect new specimen if clinically indicated. [facility] HBV surface Ag IA Qlon 11-25 Interpretation and review of laboratory results Normal [facility] HEMOGLOBIN A1Con 11-25-2024 Glucose [Mass/Vol] 120 mg/dL Normal [facility] Comment on above: Result Comment: ORDE R COMMENTS: HbA1c values of 5.7-6.4 percent indicate an increased risk for developing diabetes mellitus. HbA1c values greater than or equal to 6.5 percent are diagnostic of diabetes mellitus. For diagnosis of diabetes in individuals without unequivocal hyperglycemia, results should be confirmed by repeat testing. Performed By: #### L AB90 ####Regulatory Internship: LYNDSEY NICOLE ([id number])[facility] [employer] HEMOGLOBIN A1C 5.8 %HbA1C High <5.7 [facility] Comment on above: Result Comment: Norm al less than 5.7% Prediabetes 5.7% to 6.4% Diabetes 6.5% or higher --HgbA1C levels may not be accurate in patients who have renal disease, received recent blood transfusions, are anemic, or who have dyshemoglobinemia. Performed By: #### L AB90 ####Regulatory Internship: LYNDSEY NICOLE ([id number])[facility] ([facility])[address] [place] [address] HEPATITIS B SURFACE ANTIBODY on 11-25-2024 HEPATITIS B VIRUS SURFACE AB 23.8 mIU/mL Normal [facility] Comment on above: Result Comment: ORDE R COMMENTS: Interpretation: <8.0 Non-Reactive 8.0-11.9 Equivocal >= 12.0 Ab Detected Note: If an equivocal result is interpreted, an antibody status is unable to be determined. Collect new specimen if clinically indicated. Performed By: #### L AB472, [id number] ####Regulatory Internship: LYNDSEY NICOLE ([id number])[facility])[address] [place] [address] HEPATITIS B SURFACE ANTIGENo n 11-25-2024 HEPATITIS B VIRUS SURFACE AG Not detected Normal Not Detected [facility] Comment on above: Performed By: #### L AB472, [id number] ####Regulatory Internship: LYNDSEY NICOLE ([id number])[facility] ([facility])[address] [place] [address] HIGH SENSITIVITY TROPONIN, S ERIAL BASELINEon 11-25-2024 TROPONIN HS SERIAL BASELINE 5 ng/L Normal <=35 [facility] Comment on above: Result Comment: In i ndividuals presenting with symptoms > 2h, a baseline troponin <= 5 ng/L suggests acute cardiac injury is unlikely and further serial testing is generally not indicated. Performed By: #### L AB67, LAB17, LAB18, [id number] ####Regulatory Internship: LYNDSEY NICOLE ([id number])[facility] ([facility])[address] [place] [address] HIGH SENSITIVITY TROPONIN, S ERIAL, SECOND TESTon 11-25-2024 2H TROPONIN HS (SERIAL 2ND TROPONIN) 7 ng/L Normal <=35 [facility] Comment on above: Result Comment: 2h [...] injury is unlikely. Performed By: #### L [id number] ####Regulatory Internship: LYNDSEY NICOLE ([id number])[facility])[address] [place] [address] LIPID PANELon 11-25-2024 Cholesterol [Mass/Vol] 146 mg/dL Normal <200 [facility] Comment on above: Performed By: #### L AB67, LAB17, LAB18, [id number] ####Regulatory Internship: LYNDSEY NICOLE ([id number])[facility] [place] [address] Cholesterol in HDL [Mass/Vol] 39 mg/dL Low >=60 [facility] Comment on above: Performed By: #### L AB67, LAB17, LAB18, [id number] ####Regulatory Internship: LYNDSEY NICOLE ([id number])[facility] [place] [address] Cholesterol.total/Chol esterol in HDL [Mass ratio] 4 {ratio} Normal [facility] Comment on above: Result Comment: Ref Range: < 3 Low Risk for CHD 3-6 Mod Risk for CHD > 6 High Risk for CHD Performed By: #### L AB67, LAB17, LAB18, [id number] ####Regulatory Internship: LYNDSEY NICOLE ([id number])[facility] [place] [address] LOW DENSITY LIPOPROTEIN 86 mg/dL Normal 0-<100 [facility] Comment on above: Performed By: #### Jin AB67, LAB17, LAB18, [id number] ####Regulatory Internship: LYNDSEY NICOLE ([id number])[facility] ([facility])[address] [place] [address] NON-HDL CHOLESTEROL, CALCULATED 107 Normal <130 [facility] Comment on above: Performed By: #### L AB67, LAB17, LAB18, [id number] ####Regulatory Internship: LYNDSEY NICOLE ([id number])[facility] ([facility])[address] [place] [address] Triglyceride [Mass/Vol] 104 mg/dL Normal <150 [facility] Comment on above: Performed By: #### L AB67, LAB17, LAB18, [id number] ####Regulatory Internship: LYNDSEY NICOLE ([id number])[facility] [place] [address] VERY LOW DENSITY LIPOPROTEIN, CALCULATED 21 mg/dL Normal <=30 [facility] Comment on above: Performed By: #### L AB67, LAB17, LAB18, [id number] ####Regulatory Internship: LYNDSEY NICOLE ([id number])[address] Laboratory - Chemistry and C hemistry - challengeon 11-25-2024 Cobalamin (Vitamin B12) [Mass/Vol] 429 pg/mL 213 - 816 pg/mL [facility] Ammonia (P) [Moles/Vol] 20 umol/L 18 - 72 umol/L [facility] Average glucose Estimated from glycated hemoglobin (Bld) [Mass/Vol] 120 mg/dL [facility] Laboratory - Hematology and Cell countson 11-25-2024 HbA1c (Bld) [Mass fraction] 5.8 % High [facility] Comment on above: Normal less than 5.7 % Prediabetes 5.7% to 6.4% Diabetes 6.5% or higher --HgbA1C levels may not be accurate in patients who have renal disease, received recent blood transfusions, are anemic, or who have dyshemoglobinemia. Laboratory - Microbiology an d Antimicrobial susceptibilityon 11-25-2024 HBV surface Ab IA Qn 23.8 m[IU]/mL mIU/mL S [facility] HBV surface Ag IA Ql Not detected Not Detected [facility] Lipid 1996 panelon 5 Cholesterol [Mass/Vol] 146 mg/dL NINF - 200 mg/dL [facility] Cholesterol in HDL [Mass/Vol] 39 mg/dL Low 60 - PINF mg/dL [facility] Cholesterol in LDL [Mass/Vol] 86 mg/dL 0 - <100 [facility] Cholesterol.total/Chol esterol in HDL [Mass ratio] 4 {ratio} [facility] Comment on above: Ref Range: < 3 Low Risk for CHD 3-6 Mod Risk for CHD > 6 High Risk for CHD NON-HDL CHOLESTEROL, CALCULATED 107 NINF - 130 [facility] Triglyceride [Mass/Vol] 104 mg/dL NINF - 150 mg/dL [facility] VERY LOW DENSITY LIPOPROTEIN, CALCULATED 21 mg/dL NINF - 30 mg/dL [facility] Medical Studenton 11-25-2024 Medical Student -- Attestation signed by Nuha Hebert MD at [...] was not clear. He was taken to [facility] where he had a CT scan of the head and CT angiogram of the head and neck. He was offered tenecteplase but the family refused given similar episodes in the past. He was then transferred to [facility]. At [facility] on arrival, blood pressure 154/87, blood work [...] he does have some asterixis but no duvcas-vi-gpgf dystaxia or dysmetria. No numbness on light [...] the electronic medical record; as well as counseling/coordinatin g care and provided discussion regarding diagnostic impressions and the plan of care with the consulting team Nuha Hebert MD INITIAL CONSULT NOTE. STROKE SERVICE Patient Name: Franklin Burton Patient : 1945 Acct: [id number] Date of Admission: 11/25/2024 Room/Bed: [facility] A PCP: Matilde Noguera MD History of Present Ilness: 79 y.o. male with PMH of granulomatosis with polyangiitis, ESRD on hemodialysis, HTN, neuropathy, and pre-diabetes who presents with the chief Complaint of: altered mental status and confusion following a dialysis session. According to the patient's son, [id number]-jk-otd, and , Mr. Burton returned from a [...] to ambulate. The patient was taken to [facility], where the stroke neurologist determined that he was not having any LVO based on CTA and did not need TNK. The team at [facility] felt this may have been related to fluid shift in relation (more content not included)... Normal [facility] No Panel Informationon 11-25 Joselito Rehman MD PhD 11/27/2024 1:15 PM [facility] [address] [place] [address] CONTINUOUS LONG-TERM VIDEO EEG MONITORING REPORT Patient Name: Franklin Burton : 1945 Date of Study: 11/25/2024 Duration Recorded: 02:14:39 EEG#: [id number] BILL RECAPITULATION CLERK: Alvaro HARDY PROVIDER REQUESTING STUDY: Erasmo Singh [...] evaluated at outside hospital and transferred to [facility] for further evaluation management. MEDICATIONS: Current Medications[1] TECHNICAL ASPECTS: This continuous scalp EEG study with video was carried out at [facility]. Scalp electrodes were positioned in person by an echo technologist, following patient education, according to the 10-20 International system of electrode placement and maintained for integrity and quality of the recording. An abbreviated set of electrodes was placed which included FP1/2, T7/8, C3/4, O1/2, Fz-Cz-Pz. EEG data with video was recorded continuously and digitally stored. The echo technologist reviewed all automated detections and manual [...] observed. The findings are supportive of a hbhfejfk-nk-efbhub global encephalopathy non-specific as to etiology. Anam [...] 5,000 Units at 11/25/24 2108 labetalol (Normodyne,Trandate) in (more content not included)... [facility] Interpretation and review of laboratory results Normal [facility] 2h Troponin HS (Serial 2nd Troponin) 7 ng/L NINF - 35 ng/L [facility] Comment on above: 2h troponin (2nd tro ponin) samples collected between 1h 40 min and 2h and 20 min of the baseline collection time can be utilized to interpret delta troponins as per [facility] algorithms. Samples collected outside this timeframe need to be interpreted clinically. Rising or falling troponin delta below 2 ng/L as compared to baseline value suggests that acute cardiac injury is unlikely. Interpretation and review of laboratory results Normal [facility] Loree Robertsones 11/26/19 25 8:39 AM I attempted to complete routine EEG, pt thrashing around in bed, family currently in room and does not feel patient will tolerate testing at this time. Please re-order when patient is more cooperative [facility] [employer] Interpretation and review of laboratory results Abnormal [facility] HbA1c values of 5.7-6.4 percent indicate an increased risk for developing diabetes mellitus. HbA1c values greater than or equal to 6.5 percent are diagnostic of diabetes mellitus. For diagnosis of diabetes in individuals without unequivocal hyperglycemia, results should be confirmed by repeat testing. Cyt[employer]n Confabb Sinus rhythm Occasional PAC Baseline wander in multiple leads Electronically Signed On 11-25-2024 07:44:47 EDT by Evan Caldera MD - 11/25/2024 IMPRESSION: Sinus rhythm Occasional PAC Baseline wander in multiple leads Electronically Signed On 11-25-2024 07:44:47 EDT by Evan Hyman [facility] Interpretation and review of laboratory results [facility] Trop[facility] Serial Baseline 5 ng/L NINF - 35 ng/L [employer] Comment on above: In individuals prese nting with symptoms > 2h, a baseline troponin <= 5 ng/L suggests acute cardiac injury is unlikely and further serial testing is generally not indicated. [facility] Interpretation and review of laboratory results Abnormal [facility] Conf[facility] No Panel InformationOrdered By: Evan Hyman on 11-25-2024 P Kenton 68 degrees [employer] Work Phone: TX Interval 185 ms [employer] Work Phone: QRS [place] 35 degrees [employer] Work Phone: QRSD Interval 83 ms [employer] Work Phone: QT Interval 347 ms [employer] Work Phone: QTC Interval 438 ms [employer] Work Phone: T Wave [place] 38 degrees [employer] Work Phone: [employer] Work Phone: Nursing Noteon 11-25-2024 Nursing Note -- Attestation signed by Nuha Hebert MD at [...] see the patient, and this RN responded Ok, he is quite uncomfortable so I hope that is soon. 0906 Dr. Weinberg put in for seroquel PO. Patient has been NPO since failing swallow test early this morning. 09 This RN messaged to educate Dr. Weinberg [...] restlessness that has persisted since 0837 AM. [facility] Progress Noteon 11-25-2024 Progress Note I spoke with family at bedside (, adult son, and qaldgndp-ho-yjc) as well as daughter via telephone, all of whom confirm that the patient would want to be DNR-CCA, OK for intubation & ICU transfer. Code status updated. [facility] Progress Note Speech-Language Pathology SPEECH LANGUAGE PATHOLOGY [facility] Bedside Swallow Evaluation Patient Name: Franklin Burton Evaluation Date: 11/25/2024 Date of : 1945 Admission Date: 11/25/2024 5:45 AM Age: 79 y.o. Room/Bed: [facility] A IMPRESSION: S/s oropharyngeal dysphagia. No overt [...] required. Pt would benefit from skilled acute YARD OPERATOR services to ensure patient tolerance of the [...] be evaluated. 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 ([facility]) 03/01/2023 Peritoneal dialysis catheter in situ ([facility]) ([facility]) 03/01/2023 Periumbilical abdominal pain 03/01/2023 Motion sickness 12/24/2022 Arthralgia 12/02/2022 Bronchitis 12/02/2022 Chest pain 12/02/2022 Chronic back pain 12/02/2022 Diarrhea 12/02/2022 Epistaxis 12/02/2022 Fever 12/02/2022 Finding of above normal blood pressure 12/02/2022 Hearing loss 12/02/2022 Heartburn 12/02/2022 Intermittent claudication ([facility]) 12/02/2022 Obesity with body mass index 30 or greater 12/02/2022 Prediabetes 12/02/2022 Restless legs syndrome 12/02/2022 Viral upper respiratory tract infection 12/02/2022 Chronic neuropathic pain 11/28/2022 Pain, unspecified 10/25/2022 Ankle pain 08/29/2022 Other mechanical complication of surgically created arteriovenous fistula, initial encounter ([facility]) 08/21/2022 Coagulation defect, unspecified ([facility]) 08/20/2022 Abnormal echocardiography 08/05/2022 Allergy, unspecified, initial encounter 08/01/2022 Anaphylactic shock, unspecified, initial encounter 08/01/2022 ESRD (end stage renal disease) ([facility]) 08/01/2022 Anemia in chronic kidney disease 07/30/2022 Dialysis patient ([facility]) 07/30/2022 Noninfective gastroenteritis and colitis, unspecified 07/30/2022 Secondary hyperparathyroidism of renal origin ([facility]) 07/30/2022 Chronic systolic heart failure (HCC) 06/03/2022 Neuropathy 03/26/2022 Heart failure (HCC) 03/26/2022 Disease due to severe acute respiratory syndrome coronavirus 2 (SARS-CoV-2) 01/22/2022 Disorder of brain 01/22/2022 Fatigue 01/22/2022 Hyperkalemia 01/22/2022 Stage 3 chronic kidney disease (HCC) 01/22/2022 Arteriovenous fistula (CMS/HCC) (HCC) 07/25/2021 Stage [...] diverticulitis 08/22/2017 BPH (more content not included)... Normal [facility] Progress Note At bedside with ilene lee to discuss pt's evolving mental status, agitation, [...] in consultation with Dr. Hebert. Kya Mcfarland, ARCHITECTURAL EXAMINER - SET DECORATOR/BLOOD OR BLOOD BANK TECHNICIAN Normal [facility] US Heart TransthoracicOrdere d By: Linda Arreola on 11-25-2024 Aortic Sinus Valsalva 3.2 cm [facility] Work Phone: Aortic Sinus Valsalva Index 1.48 cm/m2 [facility] Work Phone: Aortic valve Mean systole pressure gradient by US.doppler derived full Bernoulli 7 mmHg [facility] Work Phone: Aortic valve Orifice area by US 3.1 cm2 [facility] Work Phone: Aortic valve Peak systolic flow by US.doppler 1.2 m/s [facility] Work Phone: Ascending Aorta 3.6 cm [facility] Work Phone: Ascending Aorta Index 1.67 cm/m2 [facility] Work Phone: AV Area by Peak Velocity 2.8 cm2 [facility] Work Phone: AV Area by VTI 2.7 cm2 [facility] Work Phone: AV Peak Gradient 14 mmHg [facility] Work Phone: AV Peak Velocity 1.9 m/s [facility] Work Phone: AV Velocity Ratio 0.84 [facility] Work Phone: AV VTI 36.8 cm [facility] Work Phone: MELANIE/BSA Peak Velocity 1.3 cm2/m2 [facility] Work Phone: MELANIE/BSA VTI 1.3 cm2/m2 [facility] Work Phone: Fractional Shortening 2D 27 % 28 - 44 % [facility] Work Phone: Interpretation and review of laboratory results Abnormal [facility] Work Phone: IVSd 1 cm 0.6 - 1.0 cm [facility] Work Phone: LA Diameter 4.8 cm [facility] Work Phone: LA Size Index 2.22 cm/m2 [facility] Work Phone: LA Volume 2C 61 mL Abnormal 18 - 58 mL [facility] Work Phone: LA Volume 4C 42 mL 18 - 58 mL [facility] Work Phone: LA Volume A/L 55 mL [facility] Work Phone: LA Volume BP 52 mL 18 - 58 mL [facility] Work Phone: LA Volume Index 2C 28 mL/m2 16 - 34 mL/m2 [facility] Work Phone: LA Volume Index 4C 19 mL/m2 16 - 34 mL/m2 [facility] Work Phone: LA Volume Index A/L 25 mL/m2 16 - 34 mL/m2 [facility] Work Phone: LA Volume Index BP 24 ml/m2 16 - 34 ml/m2 [facility] Work Phone: Left ventricular Ejection fraction by US.2D+Calculated by biplane method of disks 50 % Abnormal 55 - 100 % [facility] Work Phone: LV E' Lateral Velocity 12 cm/s [facility] Work Phone: LV E' Septal Velocity 11 cm/s [facility] Work Phone: LV EDV A2C 107 mL [facility] Work Phone: LV EDV A4C 156 mL [facility] Work Phone: LV EDV BP 129 mL 67 - 155 mL [facility] Work Phone: LV EDV Index A2C 50 mL/m2 [facility] al[facility] Work Phone: LV EDV Index A4C 72 mL/m2 [facility] Work Phone: LV EDV Index BP 60 mL/m2 [facility] Work Phone: LV Ejection Fraction A2C 44 % [facility] Work Phone: LV Ejection Fraction A4C 58 % [facility] Work Phone: LV ESV A2C 60 mL [facility] Work Phone: LV ESV A4C 65 mL [facility] Work Phone: LV ESV BP 65 mL Abnormal 22 - 58 mL [facility] Work Phone: LV ESV Index A2C 28 mL/m2 [facility] Work Phone: LV ESV Index A4C 30 mL/m2 [facility] He [facility] Work Phone: LV ESV Index BP 30 mL/m2 [facility] Work Phone: LV Mass 2D 137.8 g 88 - 224 g [facility] Work Phone: LV Mass 2D Index 63.8 g/m2 49 - 115 g/m2 [facility] Work Phone: LV RWT Ratio 0.41 [facility] Work Phone: LVIDd 4.4 cm 4.2 - 5.9 cm [facility] Work Phone: LVIDd Index 2.04 cm/m2 [facility] Work Phone: LVIDs 3.2 cm [facility] Work Phone: LVIDs Index 1.48 cm/m2 [facility] Work Phone: LVOT Cardiac Output 10.1 liter/minute [facility] Work Phone: LVOT Diameter 2 cm [facility] Work Phone: LVOT Mean Gradient 4 mmHg [facility] Work Phone: LVOT Peak Gradient 10 mmHg [facility] Work Phone: LVOT Peak Velocity 1.6 m/s [facility] Work Phone: LVOT Stroke Volume Index 43.9 mL/m2 [facility] Work Phone: LVOT SV 94.8 ml [facility] Work Phone: LVOT VTI 30.2 cm [facility] Work Phone: LVOT:AV VTI Index 0.82 [facility] Work Phone: LVPWd 0.9 cm 0.6 - 1.0 cm [facility] Work Phone: RA Area 4C 35.5 mL [facility] Work Phone: RV Free Wall Peak S' 22 cm/s [facility] Work Phone: TAPSE 1.9 cm 1.7 cm [facility] Work Phone: TR Max Velocity 3.68 m/s [facility] Work Phone: TR Peak Gradient 54 mmHg [facility] Work Phone: [facility] Work Phone: Heart Transthoracicon Technically difficul [...] VITAMIN B1, WHOLE BLOOD (BKR QUEST)on 11-25-2024 [employer] VITAMIN B1 (THIAMINE), BLOOD, LC/MS/MS 98 nmol/L Normal 78-185 [facility] Comment on above: Result Comment: Vitamin supplementation within 24 hours prior to blood draw may affect the accuracy of the results. This test was developed and its analytical performance characteristics have been determined by [employer] [place], [place]. It has not been cleared or approved by the U.S. Food and Drug Administration. This assay has been validated pursuant to the CLIA regulations and is used for clinical purposes. Test Performed by [facility], [employer] [facility], [address] [place] [address] Jerod Briseno M.D., Ph.D., Director of Laboratories , CLIA [id number] Performed By: #### L [id number] #### [place] (AMDBEAKER) [id number] [place], [place] VITAMIN B12on 11-25-2024 Cobalamin (Vitamin B12) [Mass/Vol] 429 pg/mL Normal 213-816 [facility] Comment on above: Performed By: #### L AB67, LAB17, LAB18, [id number] ####Regulatory Internship: LYNDSEY NICOLE ([id number])[facility] ([facility])[address] [place] [address] Vital signsOrdered By: Cherie Hyman on 11-25-2024 Heart rate 96 /min bpm [employer] Work Phone: XR ABDOMEN 1 VIEWon 11-26-19 [...] Electronically Signed Date/Time: 11/25/2024 12:22 PM EDT [facility] XR Abdomen Single viewon No findings that preclude MR imaging. Report Dictated on Electronically Signed By: Mehreen Vargas MD Electronically Signed Date/Time: 11/25/2024 12:22 PM EDT [facility] Patient Name: FRANKLIN BURTON : [...] Bilateral sacroiliac joint DJD. No acute fracture. [facility] Mehreen Vargas M D - [...] Electronically Signed Date/Time: 11/25/2024 12:22 PM EDT [facility] Radiology Study observation (narrative) [employer] XR Abdomen Single viewOrdere d By: Mehreen Vargas on 11-25-2024 [employer] Work Phone: XR CHEST 1 VIEWon 11-25-2024 [...] Signed Date/Time: 11/25/2024 7:40 PM EDT Normal [facility] XR Chest Single viewon 11-25 No acute cardiopulmonary process. The patient may proceed with MRI in regards to this exam. Report Dictated on Electronically Signed By: Carlin Esteban MD Electronically Signed Date/Time: 11/25/2024 7:40 PM EDT [facility] Patient Name: FRANKLIN BURTON : [...] changes of the thoracic spine are noted. [facility] Carlin Esteban MD - 11/25/2024 Patient Name: [...] Electronically Signed Date/Time: 11/25/2024 7:40 PM EDT [facility] Radiology Study observation (narrative) [facility] XR Chest Single viewOrdered By: Carlin Esteban on 11-25-2024 [facility] Work Phone: APTTon 11-24-2024 aPTT Coag (Bld) [Time] 24.8 s Low 25.4 - 38.4 [facility] Comment on above: Performed By: #### 2 [id number] #### [facility],[address] [place] [address] 37942 CBC + DIFFon 11-24-2024 Baso # 0.01 x10EE3/UL Normal 0.00 - 0.10 [facility] Comment on above: Performed By: #### 2 95576 #### [facility],[address] [place] [address] 16388 Basophils/100 WBC (Bld) 0.3 % Normal 0.0 - 2.0 [facility] Comment on above: Performed By: #### 2 24522 #### [facility],[address] [place] [address] 85766 CBC + DIFF Normal [facility] Comment on above: Result Comment: CBC- COMPLETE BLOOD COUNT Performed By: #### 2 66540 #### [facility],[address] [place] [address] 72929 EO # 0.09 x10EE3/UL Normal 0.00 - 0.50 [facility] Comment on above: Performed By: #### 2 57239 #### [facility],[address] [place] [address] 01809 Eosinophils/100 WBC (Bld) 2.7 % Normal 0.0 - 7.0 [facility] Comment on above: Performed By: #### 2 10639 #### [facility],[address] [place] [address] 99895 Erythrocyte distribution width (RBC) [Ratio] 13.0 % Normal 12.0 - 15.6 [facility] Comment on above: Performed By: #### 2 24510 #### [facility],[address] [place] [address] 11652 Hematocrit (Bld) [Volume fraction] 28.3 % Low 40.0 - 52.0 [facility] Comment on above: Performed By: #### 2 72455 #### [facility],[address] [place] [address] Hemoglobin (Bld) [Mass/Vol] 9.5 g/dL Low 13.0 - 17.5 [facility] Comment on above: Performed By: #### 2 02431 #### [facility],[address] [place] [address] Lymph # 0.51 x10EE3/UL Low 0.80 - 2.80 [facility] Comment on above: Performed By: #### 2 59063 #### [facility],[address] [place] [address] Lymphocytes/100 WBC (Bld) 16.0 % Low 20.0 - 45.0 [facility] Comment on above: Performed By: #### 2 83354 #### [facility],[address] [place], [place] [id number] MANUAL DIFF N/A Normal [facility] Comment on above: Performed By: #### 2 29475 #### [facility],[address] [place] [address] MCH (RBC) [Entitic mass] 31 pg Normal 27 - 33 [facility] Comment on above: Performed By: #### 2 38051 #### [facility],[address] [place] [address] MCHC 34 X10 3 Normal 32 - 36 [facility] Comment on above: Performed By: #### 2 22910 #### [facility],[address] [place], [place] [id number] MCV (RBC) [Entitic vol] 93 fL Normal 81 - 98 [facility] Comment on above: Performed By: #### 2 39401 #### [facility],[address] [place] [address] Baraga # 0.25 x10EE3/UL Normal 0.20 - 1.00 [facility] Comment on above: Performed By: #### 2 07517 #### [facility],[address] [place] [address] 93198 MONOS % 7.9 % Normal 0.0 - 10.0 [facility] Comment on above: Performed By: #### 2 61575 #### [facility],[address] [place] [address] 71472 Morphology Yunior (Bld) [Interp] N/A Normal [facility] Comment on above: Performed By: #### 2 76639 #### [facility],[address] [place] [address] 42764 Neut # 2.36 x10EE3/UL Normal 1.50 - 7.10 [facility] Comment on above: Performed By: #### 2 50109 #### [facility],[address] [place] [address] 54218 Neutrophils/100 WBC (Bld) 73.2 % Normal 46.0 - 76.0 [facility] Comment on above: Performed By: #### 2 10596 #### [facility],[address] [place] [address] 47284 PLATELET 104 x10EE3/UL Low 150 - 450 [facility] Comment on above: Performed By: #### 2 71807 #### [facility],[address] [place] [address] 22366 Platelet mean volume (Bld) [Entitic vol] 7.5 fL Normal 6.4 - 10.5 [facility] Comment on above: Result Comment: AUTO MATED DIFFERENTIAL Performed By: #### 2 87561 #### [facility],[address] [place] [address] 38606 RBC 3.04 x 10EE6/UL Low 4.50 - 6.00 [facility] Comment on above: Performed By: #### 2 77613 #### [facility],[address] [place] [address] 37543 WBC 3.2 x 10EE3/UL Low 4.5 - 10.8 [facility] Comment on above: Performed By: #### 2 80502 #### [facility],[address] [place] [address] 43804 CHEST 1 VIEWon 11-24-2024 CHEST [address] [address] Patient: FRANKLIN BURTON Phone#: : 1945 Age: 79 Gender: M Pt. Type: ER Account: [id number] Location: [facility] Ordering: DR. JOSÉ MIGUEL HEWITT Exam Date: 11/24/2024/18:19 Family Phys: Charge Code: [id number] Physician: Motley Order #: [id number] Dose#: PROCEDURE: X-RAY CHEST 1 VIEW COMPARISON: [facility], XR, CHEST 1 VIEW, 03/14/2023, 20:37. [...] Lazar MD on 11/24/2024 at 19:21 Normal [facility] CMP with eGFRon 11-24-2024 AGE 79 years Normal [facility] Comment on above: Performed By: #### 2 81538 #### [facility],[address] [place] [address] 84477 Albumin [Mass/Vol] 2.8 g/dL Low 3.4 - 5.0 [place] Comment on above: Performed By: #### 2 43924 #### [facility],[address] [place] [address] 64934 Albumin/Globulin [Mass ratio] 1.0 {ratio} Normal 0.9 - 1.6 [facility] Comment on above: Performed By: #### 2 70293 #### [facility],[address] [place] [address] 26331 ALK PHOS 60 U/L Normal 46 - 116 [facility] Comment on above: Performed By: #### 2 44861 #### [facility],[address] [place] [address] 46734 ALT [Catalytic activity/Vol] 14 U/L Low 16 - 63 [facility] Comment on above: Performed By: #### 2 49052 #### [facility],[address] [place] [address] 25475 Anion gap [Moles/Vol] 8 mmol/L Low 10 - 20 [facility] Comment on above: Performed By: #### 2 44812 #### [facility],[address] [place] [address] 22522 AST [Catalytic activity/Vol] 13 U/L Low 15 - 37 [facility] Comment on above: Performed By: #### 2 35406 #### [facility],[address] [place] [address] 96918 B/C RATIO 4 ratio Normal 0 - 30 [facility] Comment on above: Performed By: #### 2 02757 #### [facility],[address] [place] [address] 49418 Bilirubin [Mass/Vol] 0.3 mg/dL Normal 0.2 - 1.0 [facility] Comment on above: Performed By: #### 2 58269 #### [facility],[address] [place] [address] 42313 Calcium [Mass/Vol] 7.8 mg/dL Low 8.5 - 10.1 [place] Comment on above: Performed By: #### 2 17483 #### [facility],[address] [place] [address] 61195 Chloride [Moles/Vol] 100 mmol/L Normal 98 - 107 [facility] Comment on above: Performed By: #### 2 71662 #### [facility],[address] [place] [address] 04345 CMP with eGFR Normal [facility] Comment on above: Result Comment: COMP REHENSIVE METABOLIC PANEL Performed By: #### 2 69690 #### [facility],[address] [place] [address] 52138 CO2 [Moles/Vol] 31.8 mmol/L Normal 21.0 - 32.[address] [facility] Comment on above: Performed By: #### 2 76008 #### [facility],[address] [place] [address] 50663 Creatinine [Mass/Vol] 2.26 mg/dL High 0.70 - 1.30 [facility] Comment on above: Performed By: #### 2 24488 #### [facility],[address] [place] [address] 50334 eGFR 28 ML/MINUTE Low 60 - 999 [facility] Comment on above: Performed By: #### 2 09812 #### [facility],[address] [place] [address] 81362 eGFR(AA) 34 ML/MINUTE Low 60 - 999 [facility] Comment on above: Result Comment: ACCO RDING TO THE NATIONAL KIDNEY DISEASE EDUCATION PROGRAM(NKDE), A NORMAL eGFR IS A VALUE GREATER THAN OR EQUAL TO 60 ML/MIN/1.73 SQ METERS. CHRONIC KIDNEY DISEASE: <60mL/MIN/1.73 SQ METERS KIDNEY FAILURE: <15mL/MIN/1.73 SQ METERS THIS TEST SHOULD ONLY BE USED FOR PATIENTS 18 YEARS OF AGE AND OLDER. Performed By: #### 2 89818 #### [facility],[address] [place] [address] 75125 Globulin (S) [Mass/Vol] 2.8 g/dL Normal 1.5 - 3.8 [facility] Comment on above: Performed By: #### 2 48006 #### [facility],[address] [place] [address] 60637 Glucose [Mass/Vol] 115 mg/dL High 74 - 106 [place] Comment on above: Performed By: #### 2 02698 #### [facility],[address] [place] [address] 38000 Potassium [Moles/Vol] 4.3 mmol/L Normal 3.5 - 5.1 [facility] Comment on above: Performed By: #### 2 19667 #### [facility],[address] [place] [address] 90974 Protein [Mass/Vol] 5.6 g/dL Low 6.4 - 8.2 [place] Comment on above: Performed By: #### 2 88394 #### [facility],[address] [place] [address] 96590 Sodium [Moles/Vol] 135 mmol/L Low 136 - 145 [facility] Comment on above: Performed By: #### 2 69286 #### [facility],[address] [place], [place] [address] Urea nitrogen [Mass/Vol] 9 mg/dL Normal 7 - 18 [facility] Comment on above: Performed By: #### 2 19869 #### [facility],[address] [place], [place] [address] CT ANGIOGRAPHY HEAD W/CONTRA STon 11-24-2024 CT ANGIOGRAPHY HEAD W/CONTRAST [place] [address] Patient: FRANKLIN BURTON Phone#: : 1945 Age: 79 Gender: M Pt. Type: ER Account: [id number] Location: [facility] Ordering: DR. JOSÉ MIGUEL HEWITT Exam Date: 11/24/2024/17:09 Family Phys: Charge Code: 711860 Physician: Motley Order #: [id number] Dose#: 8.1 PROCEDURE: CT ANGIOGRAPHY HEAD WITH [...] Lazar MD on 11/24/2024 at 18:03 Normal [facility] CT ANGIOGRAPHY [facility] 2024 CT ANGIOGRAPHY [place] [address] Patient: FRANKLIN BURTON Phone#: : 1945 Age: 79 Gender: M Pt. Type: ER Account: [id number] Location: 2 Ordering: DR. JOSÉ MIGUEL HEWITT Exam Date: 11/24/2024/17:09 Family Phys: Charge Code: 706729 Physician: Motley Order #: [id number] Dose#: 8.1 PROCEDURE: CT ANGIOGRAPHY CAROTIDS WITH [...] 79 Gender: M Pt. Type: ER Account: [id number] Location: 052 Ordering: DR. JOSÉ MIGUEL HEWITT Exam Date: 11/24/2024/17:09 Family Phys: Charge Code: [id number] Physician: Motley Order #: [id number] Dose#: 8.1 1. Hard plaque is present at the bulb bilaterally. There is no evidence of significant stenosis or aneurysmal dilatation. Dictated by: Davida Lazar MD on 11/24/2024 at 18:03 Approved by: Davida Lazar MD on 11/24/2024 at 18:05 Normal [facility] CT BRAIN W/O CONTRASTon 07-0 CT BRAIN W/O CONTRAST [place] [address] Patient: FRANKLIN BURTON Phone#: : 1945 Age: 79 Gender: M Pt. Type: ER Account: [id number] Location: 052 Ordering: DR. JOSÉ MIGUEL HEWITT Exam Date: 11/24/2024/17:09 Family Phys: Charge Code: [id number] Physician: Motley Order #: [id number] Dose#: 8.20 mGy PROCEDURE: CT BRAIN WITHOUT [...] Lazar MD on 11/24/2024 at 17:57 Normal [facility] MAGNESIUMon 11-24-2024 Magnesium [Mass/Vol] 1.7 mg/dL Low 1.8 - 2.4 [facility] Comment on above: Performed By: #### 2 26182 #### [facility],[address] [place], [place] [address] PROTHROMBIN TIME AND INRon 0 11-24-2024 INR Coag (PPP) [Relative time] 1.1 {INR} Normal 0.8 - 1.2 [facility] Comment on above: Result Comment: T HE [...] MECHANICAL HEART VALVES Performed By: #### 2 82399 #### [facility],[address] [place] [address] PROTHROMBIN TIME AND INR Normal [facility] Comment on above: Result Comment: PROT HROMBIN TIME AND INR Performed By: #### 2 44663 #### [facility],[address] [place] [address] PT-COUMADIN 12.9 sec Normal 9.3 - 14.1 [facility] Comment on above: Performed By: #### 2 36592 #### [facility],[address] [place], [place] [address] SEDRATEon 11-24-2024 SEDRATE 14 mm/hr Normal 0 - 20 [facility] Comment on above: Performed By: #### 2 45415 #### [facility],[address] [place] [address] TROPONINon 11-24-2024 HS TROPONIN 8.2 pg/mL Normal 0.0 - 76.2 [facility] Comment on above: Performed By: #### 2 67063 #### [facility],[address] [place], [place] [address] Internal Medicine Office Vis [facility] 10-15-2024 Internal Medicine Office Visit [facility] [address] [place] [address] [place] [address] OFFICE VISIT Date of Service: 10/15/24 MR#: [id number] Acct: [id number] Name: FRANKLIN BURTON Rep #: [id number] : 1945 Provider: JULIUS Lazo Age/Sex: 79/M Location: [facility] Status: Signed Intake Vital Signs 09/07/24 08:59 [...] DAILY BP #90 tabs 5 10/15/24 Rx oxycodone-acetaminophe n 5 mg-325 1 tab PO Q8H PRN [...] the past week he has been having itchy bumps on left wrist and both ankles pt states he has tried over the [...] house 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 Normal [facility] BUNon 09-10-2024 Urea nitrogen [Mass/Vol] 41 mg/dL High - [facility] Comment on above: Performed By: #### 2 49084 #### [facility],[address] [place] [address] 62528 Urea nitrogen [Mass/Vol] 11 mg/dL Normal - [facility] Comment on above: Performed By: #### 2 49053 #### [facility],[address] [place] [address] 99334 CBC + DIFFon 09-10-2024 Baso # 0.01 x10EE3/UL Normal 0.00 - 0.10 [facility] Comment on above: Performed By: #### 2 67975 #### [facility],[address] [place] [address] 12170 Basophils/100 WBC (Bld) 0.4 % Normal 0.0 - 2.0 [facility] Comment on above: Performed By: #### 2 93323 #### [facility],[address] [place] [address] 02787 CBC + DIFF Normal [facility] Comment on above: Result Comment: CBC- COMPLETE BLOOD COUNT Performed By: #### 2 52790 #### [facility],[address] [place] [address] 55019 CELL COUNT 100 Normal [facility] Comment on above: Performed By: #### 2 17941 #### [facility],[address] [place] [address] 02623 EO 4.0 % Normal 0.0 - 7.0 [facility] Comment on above: Performed By: #### 2 90273 #### [facility],[address] [place] [address] 02270 EO # 0.15 x10EE3/UL Normal 0.00 - 0.50 [facility] Comment on above: Performed By: #### 2 61991 #### [facility],[address] [place] [address] 77510 Eosinophils/100 WBC (Bld) 3.6 % Normal 0.0 - 7.0 [facility] Comment on above: Performed By: #### 2 04716 #### [facility],[address] [place] [address] 22518 Erythrocyte distribution width (RBC) [Ratio] 13.7 % Normal 12.0 - 15.6 [facility] Comment on above: Performed By: #### 2 46679 #### [facility],[address] [place] [address] 84691 Hematocrit (Bld) [Volume fraction] 34.7 % Low 40.0 - 52.0 [facility] Comment on above: Performed By: #### 2 09893 #### [facility],[address] [place] [address] 28412 Hemoglobin (Bld) [Mass/Vol] 11.8 g/dL Low 13.0 - 17.5 [facility] Comment on above: Performed By: #### 2 28492 #### [facility],[address] [place] [address] 66843 Lymph # 0.93 x10EE3/UL Normal 0.80 - 2.80 [facility] Comment on above: Performed By: #### 2 14545 #### [facility],[address] [place] [address] 10779 Lymphocytes/100 WBC (Bld) 22.0 % Normal 20.0 - 45.0 [facility] Comment on above: Performed By: #### 2 06096 #### [facility],[address] [place] [address] 79609 Lymphocytes/100 WBC (Bld) 24 % Normal 20 - 45 [facility] Comment on above: Performed By: #### 2 35070 #### [facility],[address] [place] [address] MANUAL DIFF SEE BELOW Normal [facility] Comment on above: Performed By: #### 2 83215 #### [facility],[address] [place] [address] MCH (RBC) [Entitic mass] 32 pg Normal 27 - 33 [facility] Comment on above: Performed By: #### 2 54667 #### [facility],[address] [place] [address] MCHC 34 X10 3 Normal 32 - 36 [facility] Comment on above: Performed By: #### 2 95004 #### [facility],[address] [place] [address] MCV (RBC) [Entitic vol] 93 fL Normal 81 - 98 [facility] Comment on above: Performed By: #### 2 50131 #### [facility],[address] [place] [address] Baraga # 0.31 x10EE3/UL Normal 0.20 - 1.00 [facility] Comment on above: Performed By: #### 2 52724 #### [facility],[address] [place] [address] MONOS 7 % Normal 0 - 10 [facility] Comment on above: Performed By: #### 2 98471 #### [facility],[address] [place] [address] MONOS % 7.4 % Normal 0.0 - 10.0 [facility] Comment on above: Performed By: #### 2 33798 #### [facility],[address] [place] [address] Morphology Yunior (Bld) [Interp] NORMAL Normal [facility] Comment on above: Performed By: #### 2 49035 #### [facility],[address],[place] [address] Neut # 2.80 x10EE3/UL Normal 1.50 - 7.10 [facility] Comment on above: Performed By: #### 2 13356 #### [facility],[address] [place] [address] 98669 Neutrophils/100 WBC (Bld) 66.6 % Normal 46.0 - 76.0 [facility] Comment on above: Performed By: #### 2 03107 #### [facility],[address] [place] [address] 69075 PLATELET 136 x10EE3/UL Low 150 - 450 [facility] Comment on above: Performed By: #### 2 85301 #### [facility],[address] [place] [address] 30070 Platelet mean volume (Bld) [Entitic vol] 8.3 fL Normal 6.4 - 10.5 [facility] Comment on above: Result Comment: AUTO MATED DIFFERENTIAL Performed By: #### 2 37722 #### [facility],[address] [place] [address] 69495 RBC 3.74 x 10EE6/UL Low 4.50 - 6.00 [facility] Comment on above: Performed By: #### 2 56909 #### [facility],[address] [place] [address] 26854 SEGS 65 % Normal 46 - 76 [facility] Comment on above: Performed By: #### 2 09303 #### [facility],[address] [place] [address] 18980 WBC 4.2 x 10EE3/UL Low 4.5 - 10.8 [facility] Comment on above: Performed By: #### 2 02416 #### [facility],[address] [place] [address] 32535 POTASSIUMon 09-10-2024 Potassium [Moles/Vol] 3.7 mmol/L Normal 3.5 - 5.1 [facility] Comment on above: Performed By: #### 2 38275 #### Dionisio [facility],[address] [place] [id number] Laboratory - Hematology and Cell countsOrdered By: Matilde Noguera on 09-07-2024 HbA1c (Bld) [Mass fraction] 6.3 % 4.2-6.3 [facility] Internal Medicine Office Vis iton 09-06-2024 Internal Medicine Office Visit [facility] [address] [place] [id number] OFFICE VISIT Date of Service: 09/07/24 MR#: [id number] Acct: [id number] Name: FRANKLIN BURTON Rep #: [id number] : 1945 Provider: Dr. Matilde hernandez MD Age/Sex: 79/M Location: [facility] Status: Signed Intake Vital Signs 06/08/24 09:47 [...] Reasons: 3 M FU Chief Complaint: f/u [employer] Required: No Is patient in pain?: No [...] DAILY stomach #90 caps 09/07/24 Rx release oxycodone-acetaminophe n 5 mg-325 1 tab PO Q8H PRN [...] mg PO HS PRN sleep #30 caps 08/1809/07/24 Rx Have you fallen in the past [...] needed and he is not in pain. [facility] Medical History Dialysis patient Wears hearing aid [...] spouse housing: house 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 status: retired curre (more content not included)... Normal [facility] Diagnostic total prostate sp ecific antigen (PSA) measurementOrdered By: Kael Decker on 07-20-2024 Prostate Specific Antigen Total 5.52 ng/mL High 0.00-4.00 [facility] Comment on above: This test was perfor [...] Diagnosticon PSA, DIAGNOSTIC 5.52 ng/mL High 0.00-4.00 [facility] Comment on above: Result Comment: This test [...] values. Performed By: #### L 501.9940 #### [facility] [address] [place], [address] Internal Medicine Office Vis iton 06-07-2024 Internal Medicine Office Visit [facility] [address] [place] [address] [place] [address] OFFICE VISIT Date of Service: 06/08/24 MR#: [id number] Acct: [id number] Name: FRANKLIN BURTON Rep #: [id number] : 1945 Provider: Dr. 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 Normal [facility] Internal Medicine Office Vis iton 05-03-2024 Internal Medicine Office Visit [facility] [address] [place] [address] OFFICE VISIT Date of Service: 05/04/24 MR#: [id number] Acct: [id number] Name: FRANKLIN BURTON Rep #: [id number] : 1945 Provider: Dr. Matilde hernandez MD Age/Sex: 78/M Location: [facility] Status: Signed Intake Vital Signs 04/19/24 15:56 [...] Visit Reasons: BAD COUGH Chief Complaint: f/u [employer] Required: No Is patient in pain?: No [...] PO QHS #60 caps 04/12/24 05/04/24 Rx oxycodone-acetaminophe n 5 mg-325 1 tab PO Q8H PRN [...] aches, fevers, chills. Has been using dayquil. 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 Normal [facility] 12 Lead EKGon 04-19-2024 12 Lead EKG [facility] Cardiovascular Services [address] [place] [address] 12 Lead EKG 04/19/24 1546 MR#: [id number] Acct: [id number] Name: FRANKLIN BURTON Rep #: [id number] : 1945 78 From: Fawad Whittaker MD [...] are now Present Confirmed by Fawad Whittaker ([id number]), state editor SHEFALI BRODY ([id number]) on 04/23/2024 6:47:47 AM Referred By: Confirmed By: Fawad Whittaker 04/23/24 0647 Date Fawad Whittaker MD CC: Dr. Matilde Noguera MD; Dr. Jesus Christian DO Signed Normal [facility] Absolute neutrophil countOrd ered By: Jesus Christian on 04-19-2024 Neutrophils (Bld) [#/Vol] 5.1 10*3/uL 2.0-7.7 [facility] Basic Metabolic Profile (BMP )on 04-19-2024 BUN/CRE 5.6 RATIO Low 10-20 [facility] Comment on above: Performed By: #### L 100.0100, L500.2500 ####[facility] [address] [place], [address] CA,Total 9.5 mg/dL Normal 8.5-10.1 [facility] Comment on above: Performed By: #### L 100.0100, L500.2500 ####[facility] [address] [place], [address] Chloride [Moles/Vol] 96 mmol/L Low 98-107 [facility] Comment on above: Performed By: #### L 100.0100, L500.2500 ####[facility] [address] [place], [address] CO2 [Moles/Vol] 33.0 mmol/L High 21.0-32.0 [facility] Comment on above: Performed By: #### L 100.0100, L500.2500 ####[facility] [address] [place], [address] Creatinine [Mass/Vol] 3.95 mg/dL High 0.70-1.30 [facility] Comment on above: Result Comment: The validity of the calculated GFR GFRAA in patients over 70 years has not been determined. Clinical correlation is essential. Performed By: #### L 100.0100, L500.2500 ####[facility] [address] [place], [address] ECRCL 18.41 ml/min Normal [facility] Comment on above: Performed By: #### L 100.0100, L500.2500 ####[facility] [address] [place], [address] EST GFR - AA 19 mL/min Low >60 [facility] Comment on above: Result Comment: Afri can Monegasque GFR Calc Performed By: #### L 100.0100, L500.2500 ####[facility] [address] [place], [address] GAP 7 Normal 5-15 [facility] Comment on above: Performed By: #### L 100.0100, L500.2500 ####[facility] [address] [place], [address] GFR/1.73 sq M.predicted among non-blacks MDRD (S/P/Bld) [Vol rate/Area] 16 mL/min/{1.73_m2} Low >60 [facility] Comment on above: Result Comment: Non- GFR Calc Performed By: #### L 100.0100, L500.2500 ####[facility] [address] [place], [address] Glucose [Mass/Vol] 134 mg/dL High 74-106 [facility] Comment on above: Result Comment: Fast ing Glucose result greater than or equal to 126 mg/dL suggests DIABETES MELLITUS per A.D.A. criteria. Performed By: #### L 100.0100, L500.2500 ####[facility] [address] [place], [address] Potassium [Moles/Vol] 3.8 mmol/L Normal 3.5-5.1 [facility] Comment on above: Performed By: #### L 100.0100, L500.2500 ####[facility] [address] [place], [address] Sodium [Moles/Vol] 136 mmol/L Normal 136-145 [facility] Comment on above: Performed By: #### L 100.0100, L500.2500 ####[facility] [address] [place], [address] Urea nitrogen [Mass/Vol] 22 mg/dL High 7-18 [facility] Comment on above: Performed By: #### L 100.0100, L500.2500 ####[facility] [address] [place], [address] Basophil percentageOrdered B y: Jesus Christian on 04-19-2024 Basophils/100 WBC (Bld) 0.6 % 0-1 [facility] Bilirubin directOrdered By: Jesus Christian on 04-19-2024 Bilirubin.direct [Mass/Vol] 0.26 mg/dL 0.00-0.30 [facility] Bilirubin, totalOrdered By: Jesus Christian on 04-19-2024 Bilirubin [Mass/Vol] 0.60 mg/dL 0.20-1.00 [facility] Comment on above: For patients on eltr ombopag therapy, use of Dimension [place] TBIL is not recommended. Blood urea nitrogen (BUN)/cr eatinine ratioOrdered By: Jesus Christian on 04-19-2024 Urea nitrogen/Creatinine [Mass ratio] 5.6 mg/mg Low 10-20 [facility] CBC W/Diff, Automatedon 12- Absolute Lymph 0.63 X10 3/uL Low 0.83-4.51 [facility] Comment on above: Performed By: #### L 100.0100, L500.2500 #### [facility] [address] [place], [address] Absolute Neut 5.1 X10 3/uL Normal 2.0-7.7 [facility] Comment on above: Performed By: #### L 100.0100, L500.2500 #### [facility] [address] [place], [address] Basophils/100 WBC (Bld) 0.6 % Normal 0-1 [facility] Comment on above: Performed By: #### L 100.0100, L500.2500 #### [facility] [address] [place], [address] Eosinophils/100 WBC (Bld) 1.2 % Normal 0-5 [facility] Comment on above: Performed By: #### L 100.0100, L500.2500 #### [facility] [address] [place], [address] Erythrocyte distribution width (RBC) [Ratio] 13.2 % Normal 11.6-14.6 [facility] Comment on above: Performed By: #### L 100.0100, L500.2500 #### [facility] [address] [place], [address] Hematocrit (Bld) [Volume fraction] 38.8 % Low 40-54 [facility] Comment on above: Performed By: #### L 100.0100, L500.2500 #### [facility] [address] [place], [address] Hemoglobin (Bld) [Mass/Vol] 12.9 g/dL Low 13.0-16.5 [facility] Comment on above: Performed By: #### L 100.0100, L500.2500 #### [facility] [address] [place], [address] IG% 0.300 Normal 0.0-0.9 [facility] Comment on above: Result Comment: IG% - Immature Granulocytes (promyelocytes, myelocytes and metamyelocytes) > 1% indicates that a LEFT SHIFT is Present. Performed By: #### L 100.0100, L500.2500 #### [facility] [address] [place], [address] Lymphocytes/100 WBC (Bld) 9.6 % Low 19-41 [facility] Comment on above: Performed By: #### L 100.0100, L500.2500 #### [facility] [address] [place], [address] MCH (RBC) [Entitic mass] 31.6 pg Normal 27.0-32.0 [facility] Comment on above: Performed By: #### L 100.0100, L500.2500 #### [facility] [address] [place], [address] MCHC (RBC) [Mass/Vol] 33.2 g/dL Normal 32-36 [facility] Comment on above: Performed By: #### L 100.0100, L500.2500 #### [facility] [address] [place], [address] MCV (RBC) [Entitic vol] 95.1 fL High 80-94 [facility] Comment on above: Performed By: #### L 100.0100, L500.2500 #### [facility] [address] [place], [address] Monocytes/100 WBC (Bld) 9.9 % Normal 0-10 [facility] Comment on above: Performed By: #### L 100.0100, L500.2500 #### [facility] [address] [place], [address] Neutrophils/100 WBC (Bld) 78.4 % High 47-70 [facility] Comment on above: Performed By: #### L 100.0100, L500.2500 #### [facility] [address] [place], [address] Nucleated RBC (Bld) [#/Vol] 0 10*3/uL Normal 0-5 [facility] Comment on above: Performed By: #### L 100.0100, L500.2500 #### [facility] [address] [place], [address] Platelet mean volume (Bld) [Entitic vol] 9.5 fL Normal 6.2-12.0 [facility] Comment on above: Performed By: #### L 100.0100, L500.2500 #### [facility] [address] [place], [address] Platelets (Bld) [#/Vol] 142 10*3/uL Low 150-450 [facility] Comment on above: Performed By: #### L 100.0100, L500.2500 #### [facility] [address] [place], [address] RBC (Bld) [#/Vol] 4.08 10*6/uL Low 4.6-6.2 [facility] Comment on above: Performed By: #### L 100.0100, L500.2500 #### [facility] [address] [place], [address] RDW SD 46.3 fl High 35.1-43.9 [facility] Comment on above: Performed By: #### L 100.0100, L500.2500 #### [facility] [address] [place], [address] WBC (Bld) [#/Vol] 6.5 10*3/uL Normal 4.4-11.0 [facility] Comment on above: Performed By: #### L 100.0100, L500.2500 #### [facility] [address] [place], [address] Carbon dioxide measurementOr dered By: Jesus Christian on 04-19-2024 CO2 [Moles/Vol] 33.0 mmol/L High 21.0-32.0 [facility] Chest PA and Lateralon 04-19 Chest PA and Lateral [facility] Imaging Services [address] [place] [address] Chest PA and Lateral MR#: [id number] Acct: [id number] Name: FRANKLIN BURTON Jin Rep #: [id number] : 1945 M 78 From: Chance Gonzales DO PCP: Dr. Matilde Noguera MD Status: [facility] ER Study: Chest PA and Lateral Date of Exam: 04/19/24 Exam# [id number] Ordering Dr: Jesus Christian DO [id number] INDICATION: Weakness EXAMINATION/TECHNIQUE: X-RAY - XR Chest 2 Views COMPARISON: FINDINGS: LINES/DEVICES: None. LUNGS: No consolidation, edema or effusion. No pneumothorax. MEDIASTINUM AND CARDIOVASCULAR STRUCTURES: Cardiac silhouette not enlarged. Central airways and mediastinal contour are unremarkable. BONES AND SOFT TISSUES: Degenerative vertebral changes. Compression of lower thoracic and upper lumbar vertebral segments. RAD/Chest PA and Lateral IMPRESSION: No radiographic evidence of acute cardiopulmonary disease. Electronically Signed: Chance Gonzales DO at 16:31 EST Reading Location ID and State: [facility] / [place] Tel [phone], Service support , CC: Dr. Matilde Noguera MD; Dr. Jesus Christian DO Supervisor [employer] Room: Signed Normal [facility] Chloride measurementOrdered By: Jesus Christian on 04-19-2024 Chloride [Moles/Vol] 96 mmol/L Low 98-107 [facility] Emergency Department Summary on 04-19-2024 Emergency Department Summary [facility] Medical Records Department [address] [place] [address] Emergency Department Summary 04/19/24 MR#: [id number] Acct: [id number] Name: FRANKLIN BURTON Rep #: [id number] : 1945 78 From: Jesus Christian DO [...] Patient admits to occasional low back pain. 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 Normal [facility] Eosinophil percentageOrdered By: Jesus Christian on 04-19-2024 Eosinophils/100 WBC (Bld) 1.2 % 0-5 [facility] Erythrocyte distribution wid th ratioOrdered By: Jesus Christian on 04-19-2024 Erythrocyte distribution width (RBC) [Ratio] 13.2 % 11.6-14.6 [facility] Erythrocyte distribution wid th standard deviationOrdered By: Jesus Christian on 04-19-2024 Erythrocyte distribution width (RBC) [Entitic vol] 46.3 fL High 35.1-43.9 [facility] Estimated glomerular filtrat ion rate (GFR) AmericanOrdered By: Jesus Christian on 04-19-2024 Estimated GFR (MDRD) Amer 19 mL/min Low >60 [facility] Comment on above: GFR Calc Estimation of creatinine shanthi aranceOrdered By: Jesus Christian on 04-19-2024 Estimated Creatinine Clearance Calc 18.41 ml/min [facility] Glomerular filtration rate ( GFR) estimationOrdered By: Jesus Christian on 04-19-2024 Estimated GFR (MDRD) Non-Af Amer 16 mL/min Low >60 [facility] Comment on above: Non- GFR Calc Glucose measurementOrdered B y: Jesus Christian on 04-19-2024 Glucose [Mass/Vol] 134 mg/dL High 74-106 [facility] Comment on above: Fasting Glucose resu lt greater than or equal to 126 mg/dL suggests DIABETES MELLITUS per A.D.A. criteria. Hematocrit Auto (Bld) [Volum e fraction]Ordered By: Jesus Christian on 04-19-2024 Hematocrit (Bld) [Volume fraction] 38.8 % Low 40-54 [facility] Hemoglobin measurementOrdere d By: Jesus Christian on 04-19-2024 Hemoglobin (Bld) [Mass/Vol] 12.9 g/dL Low 13.0-16.5 [facility] Immature granulocytes/100 WB C Auto (Bld)Ordered By: Jesus Christian on 04-19-2024 Immature granulocytes/100 WBC (Bld) 0.300 % 0.0-0.9 [facility] Comment on above: IG% - Immature Granu locytes (promyelocytes, myelocytes and metamyelocytes) > 1% indicates that a LEFT SHIFT is Present. Influenza virus A and B and SARS-CoV-2 (COVID-19) and Respiratory syncytial virus RNAOrdered By: Jesus Christian on 04-19-2024 SARS-CoV-2 (COVID-19) RNA SHAE+probe Ql (Unsp spec) [facility] International normalized rat io (INR) calculationOrdered By: Jesus Christian on 04-19-2024 INR Coag (Bld) [Relative time] 1.1 {INR} [facility] - Chemistry and C hemistry - challengeOrdered By: Jesus Christian on 04-19-2024 AST [Catalytic activity/Vol] 23 U/L 15-37 [facility] Lactic Acidon 04-19-2024 Lactate [Moles/Vol] 1.6 mmol/L Normal 0.4-1.9 [facility] Comment on above: Order Comment: Y Performed By: #### L 500.3400, L503.6005, L300.4310, L300.3900 ####[facility] [address] [place], [address] Lactic acid measurementOrder ed By: Jesus Christian on 04-19-2024 Lactate [Moles/Vol] 1.6 mmol/L 0.4-2.0 [facility] Liver Profileon 04-19-2024 Albumin [Mass/Vol] 3.6 g/dL Normal 3.2-5.0 [facility] Comment on above: Performed By: #### L 500.3400, L503.6005, L300.4310, L300.3900 ####[facility] [address] [place], [address] ALK P 126 U/L High 45-117 [facility] Comment on above: Performed By: #### L 500.3400, L503.6005, L300.4310, L300.3900 ####[facility] [address] [place], [address] ALT [Catalytic activity/Vol] 34 U/L Normal 16-61 [facility] Comment on above: Performed By: #### L 500.3400, L503.6005, L300.4310, L300.3900 ####[facility] [address] [place], [address] AST [Catalytic activity/Vol] 23 U/L Normal 15-37 [facility] Comment on above: Performed By: #### L 500.3400, L503.6005, L300.4310, L300.3900 ####[facility] [address] [place], [address] Bilirubin [Mass/Vol] 0.60 mg/dL Normal 0.20-1.00 [facility] Comment on above: Result Comment: For patients on eltrombopag therapy, use of Dimension [place] TBIL is not recommended. Performed By: #### L 500.3400, L503.6005, L300.4310, L300.3900 ####[facility] [address] [place], [address] Bilirubin.direct [Mass/Vol] 0.26 mg/dL Normal 0.00-0.30 [facility] Comment on above: Performed By: #### L 500.3400, L503.6005, L300.4310, L300.3900 ####[facility] [address] [place], [address] Globulin (S) [Mass/Vol] 3.8 g/dL Normal 2.2-4.2 [facility] Comment on above: Performed By: #### L 500.3400, L503.6005, L300.4310, L300.3900 ####[facility] [address] [place], [address] T PROT 7.4 g/dL Normal 6.4-8.2 [facility] Comment on above: Performed By: #### L 500.3400, L503.6005, L300.4310, L300.3900 ####[facility] [address] [place], [address] Lymphocytes Auto (Unsp spec) [#/Vol]Ordered By: Jesus Christian on 04-19-2024 Lymphocytes (Bld) [#/Vol] 0.63 10*3/uL Low 0.83-4.51 [facility] Lymphocytes/100 WBC Auto (Un sp spec)Ordered By: Jesus Christian on 04-19-2024 Lymphocytes/100 WBC (Bld) 9.6 % Low 19-41 [facility] M100.678on 04-19-2024 M100.678 Pending SARS-CoV-2 (COVID 19) Negative INFLUENZA A Negative INFLUENZA B Negative RSV PCR Negative Normal [facility] Comment on above: Performed By: #### M 100.678, L400.0001 ####[facility] [address] [place], [address] MCV (mean corpuscular volume ) determinationOrdered By: Jesus Christian on 04-19-2024 MCV (RBC) [Entitic vol] 95.1 fL High 80-94 [facility] Mean corpuscular hemoglobin (MCH) determinationOrdered By: Jesus Christian on 04-19-2024 MCH (RBC) [Entitic mass] 31.6 pg 27.0-32.0 [facility] Mean corpuscular hemoglobin concentration (MCHC) determinationOrdered By: Jesus Christian on 04-19-2024 MCHC (RBC) [Mass/Vol] 33.2 g/dL 32-36 [facility] Mean platelet volume determi nationOrdered By: Jesus Christian on 04-19-2024 Platelet mean volume (Bld) [Entitic vol] 9.5 fL 6.2-12.0 [facility] Monocyte percentageOrdered B y: Jesus Christian on 04-19-2024 Monocytes/100 WBC (Bld) 9.9 % 0-10 [facility] Neutrophil percentageOrdered By: Jesus Christian on 04-19-2024 Neutrophils/100 WBC (Bld) 78.4 % High 47-70 [facility] Nucleated red blood cell per centageOrdered By: Jesus Christian on 04-19-2024 Nucleated RBC/100 WBC (Bld) [Ratio] 0 % 0-5 [facility] Partial Thromboplast Timeon 04-19-2024 aPTT Coag (Bld) [Time] 29.9 s Normal 24.1-36.2 [facility] Comment on above: Performed By: #### L 500.3400, L503.6005, L300.4310, L300.3900 ####[facility] [address] [place], [address] Platelet countOrdered By: Jeannie Christian on 04-19-2024 Platelets (Bld) [#/Vol] 142 10*3/uL Low 150-450 [facility] Potassium measurementOrdered By: Jesus Christian on 04-19-2024 Potassium [Moles/Vol] 3.8 mmol/L 3.5-5.1 [facility] Prothrombin Time w/INRon INR Coag (PPP) [Relative time] 1.1 {INR} Normal [facility] Comment on above: Performed By: #### L 500.3400, L503.6005, L300.4310, L300.3900 ####[facility] [address] [place], [address] PT Coag (PPP) [Time] 13.8 s Normal 11.7-14.9 [facility] Comment on above: Performed By: #### L 500.3400, L503.6005, L300.4310, L300.3900 ####[facility] [address] [place], [address] Prothrombin timeOrdered By: Jesus Christian on 04-19-2024 PT Coag (PPP) [Time] 13.8 s 11.7-14.9 [facility] RBC Auto (Bld) [#/Vol]Ordere d By: Jesus Christian on 04-19-2024 RBC (Bld) [#/Vol] 4.08 10*6/uL Low 4.6-6.2 [facility] Serum anion gap measurementO rdered By: Jesus Christian on 04-19-2024 Anion gap [Moles/Vol] 7 mmol/L 5-15 [facility] Serum globulin measurementOr dered By: Jesus Christian on 04-19-2024 Globulin (S) [Mass/Vol] 3.8 g/dL 2.2-4.2 [facility] Serum or plasma alanine suresh otransferase (ALT) measurementOrdered By: Jesus Christian on 04-19-2024 ALT [Catalytic activity/Vol] 34 U/L 16-61 [facility] Serum or plasma albumin satish urement (mass/volume)Ordered By: Jesus Christian on 04-19-2024 Albumin [Mass/Vol] 3.6 g/dL 3.2-5.0 [facility] Serum or plasma alkaline jennifer sphatase measurementOrdered By: Jesus Christian on 04-19-2024 ALP [Catalytic activity/Vol] 126 U/L High 45-117 [facility] Serum or plasma calcium satish urement (mass/volume)Ordered By: Jesus Christian on 04-19-2024 Calcium [Mass/Vol] 9.5 mg/dL 8.5-10.1 [facility] Serum or plasma creatinine m easurement (mass/volume)Ordered By: Jesus Christian on 04-19-2024 Creatinine [Mass/Vol] 3.95 mg/dL High 0.70-1.30 [facility] Comment on above: The validity of the calculated GFR & GFRAA in patients over 70 years has not been determined. Clinical correlation is essential. Serum or plasma urea nitroge n measurement (mass/volume)Ordered By: Jesus Christian on 04-19-2024 Urea nitrogen [Mass/Vol] 22 mg/dL High 7-18 [facility] Sodium levelOrdered By: Jesus Christian on 04-19-2024 Sodium [Moles/Vol] 136 mmol/L 136-145 [facility] Total proteinOrdered By: Soo Christian on 04-19-2024 Protein [Mass/Vol] 7.4 g/dL 6.4-8.2 [facility] Urinalysis, Completeon 04-19 BACTERIA Normal None Seen [facility] Comment on above: Order Comment: CLEAN CATCH Result Comment: PT D ISCHARGED Performed By: #### M 100.678, L400.0001 ####[facility] [address] [place], [address] BILIRUBIN URINE Normal Negative [facility] Comment on above: Order Comment: CLEAN CATCH Result Comment: PT D ISCHARGED Performed By: #### M 100.678, L400.0001 ####[facility] [address] [place], [address] Clarity (U) Normal Clear [facility] Comment on above: Order Comment: CLEAN CATCH Result Comment: PT D ISCHARGED Performed By: #### M 100.678, L400.0001 ####[facility] [address] [place], [address] Color (U) Normal Yellow [facility] Comment on above: Order Comment: CLEAN CATCH Result Comment: PT D ISCHARGED Performed By: #### M 100.678, L400.0001 ####[facility] [address] [place], [address] EPI,SQUAMOUS Normal 0-5 [facility] Comment on above: Order Comment: CLEAN CATCH Result Comment: PT D ISCHARGED Performed By: #### M 100.678, L400.0001 ####[facility] [address] [place], [address] GLUCOSE, UR Normal Normal [facility] Comment on above: Order Comment: CLEAN CATCH Result Comment: PT D ISCHARGED Performed By: #### M 100.678, L400.0001 ####[facility] [address] [place], [address] KETONE UR Normal Negative [facility] Comment on above: Order Comment: CLEAN CATCH Result Comment: PT D ISCHARGED Performed By: #### M 100.678, L400.0001 ####[facility] [address] [place], [address] LEUK ESTERASE Normal Negative [facility] Comment on above: Order Comment: CLEAN CATCH Result Comment: PT D ISCHARGED Performed By: #### M 100.678, L400.0001 ####[facility] [address] [place], [address] Mucus Ql (Urine sed) Normal [facility] Comment on above: Order Comment: CLEAN CATCH Result Comment: PT D ISCHARGED Performed By: #### M 100.678, L400.0001 ####[facility] [address] [place], [address] Nitrite Ql (U) Normal Negative [facility] Comment on above: Order Comment: CLEAN CATCH Result Comment: PT D ISCHARGED Performed By: #### M 100.678, L400.0001 ####[facility] [address] [place], [address] OCCULT BLOOD-UR Normal Negative [facility] Comment on above: Order Comment: CLEAN CATCH Result Comment: PT D ISCHARGED Performed By: #### M 100.678, L400.0001 ####[facility] [address] [place], [address] pH UR Normal 5.0 - 8.0 [facility] Comment on above: Order Comment: CLEAN CATCH Result Comment: PT D ISCHARGED Performed By: #### M 100.678, L400.0001 ####[facility] [address] [place], [address] PROT DIPSTX Normal Negative [facility] Comment on above: Order Comment: CLEAN CATCH Result Comment: PT D ISCHARGED Performed By: #### M 100.678, L400.0001 ####[facility] [address] [place], [address] RBC Normal 0-5 [facility] Comment on above: Order Comment: CLEAN CATCH Result Comment: PT D ISCHARGED Performed By: #### M 100.678, L400.0001 ####[facility] [address] [place], [address] SP.GR. DIPSTX Normal 1.002-1.030 [facility] Comment on above: Order Comment: CLEAN CATCH Result Comment: PT D ISCHARGED Performed By: #### M 100.678, L400.0001 ####[facility] [address] [place], [address] UR Preservative Normal [facility] Comment on above: Order Comment: CLEAN CATCH Result Comment: PT D ISCHARGED Performed By: #### M 100.678, L400.0001 ####[facility] [address] [place], [address] UROBILI Normal Normal [facility] Comment on above: Order Comment: CLEAN CATCH Result Comment: PT D ISCHARGED Performed By: #### M 100.678, L400.0001 ####[facility] [address] [place], [address] WBC Normal 0-5 [facility] Comment on above: Order Comment: CLEAN CATCH Result Comment: PT D ISCHARGED Performed By: #### M 100.678, L400.0001 ####[facility] [address] [place], [address] White blood cell (WBC) count Ordered By: Jesus Christian on 04-19-2024 WBC (Bld) [#/Vol] 6.5 10*3/uL 4.4-11.0 [facility] aPTT Coag (PPP) [Time]Ordere d By: Jesus Christian on 04-19-2024 aPTT Coag (Bld) [Time] 29.9 s 24.1-36.2 [facility] - Hematology and Cell countson 09-09-2023 HbA1c (Bld) [Mass fraction] 6.4 % 4.2-6.3 [facility] No Panel InformationOrdered By: Ally Pruitt on 05-26-2023 Prostate Specific Antigen Total 11.00 ng/mL 0.0-4.0 [facility] Comment on above: This test was perfor med using the TPSA assay method for theEdvivoIncentive chemistry system. Values obtained with differentassay methods cannot be used interchangably.When changing PSA assays in the course of monitoring apatient, additional sequential testing should be carriedout to confirm baseline values. Absolute lymphocyte countOrd ered By: Matilde Noguera on 04-03-2023 Lymphocytes Auto (Unsp spec) [#/Vol] 0.63 10*3/uL 0.83-4.51 [facility] Basophil percentageOrdered B y: Matilde Noguera on 04-03-2023 Basophils/100 WBC (Bld) 1.0 % 0-1 [facility] Bilirubin [Mass/Vol] 0.50 mg/dL 0.20-1.00 [facility] Comment on above: For patients on eltr ombopag therapy, use of Dimension [place] TBIL is not recommended. Chloride [Moles/Vol] 102 mmol/L 98-107 [facility] Eosinophils/100 WBC (Bld) 4.4 % 0-5 [facility] Glucose [Mass/Vol] 132 mg/dL 74-106 [facility] Comment on above: Fasting Glucose resu lt greater than or equal to 126 mg/dL suggests DIABETES MELLITUS per A.D.A. criteria. Neutrophils (Bld) [#/Vol] 3.5 10*3/uL 2.0-7.7 [facility] Neutrophils/100 WBC (Bld) 72.0 % 47-70 [facility] Potassium [Moles/Vol] 3.8 mmol/L 3.5-5.1 [facility] Protein [Mass/Vol] 5.5 g/dL 6.4-8.2 [facility] Sodium [Moles/Vol] 138 mmol/L 136-145 [facility] WBC (Bld) [#/Vol] 4.8 10*3/uL 4.4-11.0 [facility] Blood erythrocytes count (nu mber/volume)Ordered By: Matilde Noguera on 04-03-2023 RBC (Bld) [#/Vol] 2.97 10*6/uL 4.6-6.2 [facility] Blood hemoglobin measurement (mass/volume)Ordered By: Matilde Noguera on 04-03-2023 Hemoglobin (Bld) [Mass/Vol] 9.2 g/dL 13.0-16.5 [facility] Blood lymphocytes/100 leukoc ytesOrdered By: Matilde Noguera on 04-03-2023 Lymphocytes/100 WBC (Bld) 13.1 % 19-41 [facility] Blood monocytes/100 leukocyt esOrdered By: Matilde Noguera on 04-03-2023 Monocytes/100 WBC (Bld) 8.9 % 0-10 [facility] Blood platelet mean volumeOr dered By: Matilde Noguera on 04-03-2023 Platelet mean volume (Bld) [Entitic vol] 9.6 fL 6.2-12.0 [facility] Determination of erythrocyte mean corpuscular volume (MCV)Ordered By: Matilde Noguera on 04-03-2023 MCV (RBC) [Entitic vol] 101.0 fL 80-94 [facility] Hematocrit Auto (Bld) [Volum e fraction]Ordered By: Matilde Noguera on 04-03-2023 Hematocrit (Bld) [Volume fraction] 30.0 % 40-54 [facility] Iron measurement (mass/mass) Ordered By: Matilde Noguera on 04-03-2023 Iron (Unsp spec) [Mass/Mass] 53 ug/dL 65-175 [facility] - Chemistry and C hemistry - challengeOrdered By: Matilde Noguera on 04-03-2023 ALP [Catalytic activity/Vol] 85 U/L 45-117 [facility] ALT [Catalytic activity/Vol] 17 U/L 16-61 [facility] CO2 [Moles/Vol] 33.0 mmol/L 21.0-32.0 [facility] Cobalamin (Vitamin B12) [Mass/Vol] 538 pg/mL 211-911 [facility] Globulin (S) [Mass/Vol] 2.8 g/dL 2.2-4.2 [facility] Urea nitrogen/Creatinine [Mass ratio] 8.4 mg/mg 10-20 [facility] - Hematology and Cell countsOrdered By: Matilde Noguera on 04-03-2023 Erythrocyte distribution width (RBC) [Entitic vol] 56.4 fL 35.1-43.9 [facility] Erythrocyte distribution width (RBC) [Ratio] 15.1 % 11.6-14.6 [facility] Immature granulocytes/100 WBC (Bld) 0.600 % 0.0-0.9 [facility] Comment on above: IG% - Immature Granu locytes (promyelocytes, myelocytes and metamyelocytes) > 1% indicates that a LEFT SHIFT is Present. MCH (RBC) [Entitic mass] 31.0 pg 27.0-32.0 [facility] Nucleated RBC/100 WBC (Bld) [Ratio] 0 % 0-5 [facility] MCHC Auto (RBC) [Mass/Vol]Or dered By: Matilde Noguera on 04-03-2023 MCHC (RBC) [Mass/Vol] 30.7 g/dL 32-36 [facility] No Panel InformationOrdered By: Matilde Noguera on 04-03-2023 Estimated GFR (MDRD) Amer 24 mL/min >60 [facility] Comment on above: GFR Calc Estimated GFR (MDRD) Non-Af Amer 20 mL/min >60 [facility] Comment on above: Non- GFR Calc Total Iron Binding Capacity 220 ug/dL 250-450 [facility] Platelets bldOrdered By: Kwasi Noguera on 04-03-2023 Platelets (Bld) [#/Vol] 101 10*3/uL 150-450 [facility] Serum or plasma albumin satish urement (mass/volume)Ordered By: Matilde Noguera on 04-03-2023 Albumin [Mass/Vol] 2.7 g/dL 3.2-5.0 [facility] Serum or plasma albumin/glob ulin mass ratioOrdered By: Matilde Noguera on 04-03-2023 Albumin/Globulin [Mass ratio] 1.0 {ratio} 0.9-2.4 [facility] Serum or plasma calcium satish urement (mass/volume)Ordered By: Matilde Noguera on 04-03-2023 Calcium [Mass/Vol] 8.5 mg/dL 8.5-10.1 [facility] Serum or plasma creatinine m easurement (mass/volume)Ordered By: Matilde Noguera on 04-03-2023 Creatinine [Mass/Vol] 3.22 mg/dL 0.70-1.30 [facility] Comment on above: The validity of the calculated GFR & GFRAA in patients over 70 years has not been determined. Clinical correlation is essential. Serum or plasma ferritin deandre surement (mass/volume)Ordered By: Matilde Noguera on 04-03-2023 Ferritin [Mass/Vol] 754 ng/mL 26-388 [facility] Serum or plasma iron saturat ion measurement (mass fraction)Ordered By: Matilde Noguera on 04-03-2023 Iron saturation [Mass fraction] 24.1 % 15.0-55.0 [facility] Serum or plasma urea nitroge n measurement (mass/volume)Ordered By: Matilde Noguera on 04-03-2023 Urea nitrogen [Mass/Vol] 27 mg/dL 7-18 [facility] Thin prep Papanicolaou smear with manual screeningOrdered By: Matilde Noguera on 04-03-2023 Thin prep Papanicolaou smear with manual screening 18 U/L 15-37 [facility] Thin prep Papanicolaou smear with manual screening 3 5-15 [facility] Whole blood hemoglobin A1c/t otal hemoglobin ratio (mass fraction)Ordered By: Matilde Noguera on 04-03-2023 HbA1c (Bld) [Mass fraction] 5.8 % 3.8-5.6 [facility] Comment on above: Normal < 5.7 % Predi abetic 5.7 - 6.4 % Diabetic >or= 6.5 % Please note range changes. 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 Normal [facility] [facility] 03-10-2023 THERAPY NT HNO ID: [id number] Author: Ian Dupont, PT Service: Physical Therapy Author Type: Physical Therapist Type: Therapy (PT/OT/Speech/Resp) Filed: 03/10/2023 9:47 AM Note Text: PHYSICAL THERAPY MISSED VISIT SERVICE DATE: 03/10/2023 SERVICE TIME: 945 to 945 ROOM: [place] [address] Patient not seen due to Test / Procedure. Called to see patient, transportation present to take patient to HD. Will reattempt as able. SIGNATURE: Ian Dupont PT PATIENT NAME: Franklin Burton DATE: March 10, 2023 TIME: 9:46 AM Normal [facility] NUTRITIONon 03-09-2023 NUTRITION HNO ID: [id number] Author: Lacey Garcia RD Service: Nutrition Therapy [...] Medical condition, Patient/family self-report Estimated kilocalorie needs: 9667-4489 Calorie Calculation Method: [place] Body Weight, 30-35 kcals/kg Estimated protein needs (grams): 84-105 Grams protein determined by: 1.2 - 1.5 g/kg, [place] body weight Care Plan: Continue current diet Supplements: Nepro (BID) Monitor and Evaluation: Meet greater than 75% of estimated needs, Monitor bowel function, Monitor fluid/electrolyte balance, Monitor labs, I/Os, vital signs, weight Discharge Recommendations: Diet Diet: Renal --------- ------- HPI: 77 yo male, LOS 8 days, [...] Question: Food Consistency Answer: DENTAL SOFT 03/08/23 5481 Anthropometrics: Height: 172.7 cm (5' 8) Weight: 96.5 kg (212 lb 11.2 oz) [...] March 09, 2023 TIME: 10:17 AM Normal [facility] Renal function 2000 panelon 03-09-2023 Albumin [Mass/Vol] 3.0 g/dL Low 3.9-4.9 [facility] Comment on above: Order Comment: Speci men Type: BLOOD SPECIMEN Ordering Facility: [facility] Address: [address] [place] [address] Performed By: #### 2 4362-6 #### [facility] CLIA [id number] [address] [place] [address] [place] Anion gap [Moles/Vol] 9 mmol/L Normal 9-18 [facility] Comment on above: Order Comment: Speci men Type: BLOOD SPECIMEN Ordering Facility: [facility] Address: [address] [place] [address] Performed By: #### 2 4362-6 #### [facility] CLIA [id number] [address] [place] [address] [place] Calcium [Mass/Vol] 8.4 mg/dL Low 8.5-10.2 [facility] Comment on above: Order Comment: Speci men Type: BLOOD SPECIMEN Ordering Facility: [facility] Address: [address] [place] [address] Performed By: #### 2 4362-6 #### [facility] CLIA [id number] [address] [place] [address] [place] Chloride [Moles/Vol] 100 mmol/L Normal 97-105 [facility] Comment on above: Order Comment: Speci men Type: BLOOD SPECIMEN Ordering Facility: [facility] Address: [address] [place] [address] Performed By: #### 2 4362-6 #### [facility] CLIA [id number] [address] [place] [address] [place] CO2 [Moles/Vol] 24 mmol/L Normal 22-30 [facility] Comment on above: Order Comment: Speci men Type: BLOOD SPECIMEN Ordering Facility: [facility] Address: [address] [place] [address] Performed By: #### 2 4362-6 #### [facility] CLIA [id number] [address] [place] Creatinine [Mass/Vol] 3.44 mg/dL High 0.73-1.22 [facility] Comment on above: Order Comment: Camilo redman Type: BLOOD SPECIMEN Ordering Facility: [facility] Address: [address] [place] [address] Performed By: #### 2 4362-6 #### [facility] CLIA [id number] [address] Creatinine and Glomerular filtration rate.predicted panel (S/P/Bld) 18 mL/min/1.73m??? Low >=60 [facility] Comment on above: Order Comment: Camilo redman Type: BLOOD SPECIMEN Ordering Facility: [facility] Address: [address] [place] [address] Result Comment: Zoë mated Glomerular Filtration Rate [...] GFR. Performed By: #### 2 4362-6 #### [facility] CLIA [id number] [address] [place] [address] [place] Glucose [Mass/Vol] 99 mg/dL Normal 74-99 [facility] Comment on above: Order Comment: Camilo redman Type: BLOOD SPECIMEN Ordering Facility: [facility] Address: [address] [place] [address] Result Comment: The [place] [employer] (ADA) provides guidance for cutoff [...] Standards of Medical Care in Diabetes 2016, [place] [employer]. Diabetes Care. 2016.39(Suppl 1). Performed By: #### 2 4362-6 #### [facility] CLIA [id number] [address] [facility] Phosphate [Mass/Vol] 3.2 mg/dL Normal 2.7-4.8 [facility] Comment on above: Order Comment: Speci men Type: BLOOD SPECIMEN Ordering Facility: [facility] Address: [address] [place] [address] Performed By: #### 2 4362-6 #### [facility] CLIA [id number] [address] [facility] Potassium [Moles/Vol] 4.6 mmol/L Normal 3.7-5.1 [facility] Comment on above: Order Comment: Speci men Type: BLOOD SPECIMEN Ordering Facility: [facility] Address: [address] [place] [address] Performed By: #### 2 4362-6 #### [facility] CLIA [id number] [address] Sodium [Moles/Vol] 133 mmol/L Low 136-144 [facility] Comment on above: Order Comment: Speci men Type: BLOOD SPECIMEN Ordering Facility: [facility] Address: [address] [place] [address] Performed By: #### 2 4362-6 #### [facility] CLIA [id number] [address] STATES [facility] Urea nitrogen [Mass/Vol] 47 mg/dL High 9-24 [facility] Comment on above: Order Comment: Speci men Type: BLOOD SPECIMEN Ordering Facility: [facility] Address: [address] [place] [address] Performed By: #### 2 4362-6 #### [facility] CLIA [id number] [address] [place] NURSING PROGon 03-08-2023 NURSING PROG HNO ID: [id number] Author: Kwasi Milton, RN Service: Nursing Author Type: Registered Nurse Type: Nursing Progress Note Filed: 03/08/2023 6:12 PM Note Text: Nursing Progress Note Patient Name: Franklin Burton Patient Location: [id number]/[facility] 108-01 __ Top of patient's right arm noted to be slightly edematous, red, and warm. Dr. Yadav notified. Received OK to remove IV access. This note was completed by: Kwasi Milton Normal [facility] Renal function 2000 panelon 03-08-2023 Albumin [Mass/Vol] 2.8 g/dL Low 3.9-4.9 [facility] Comment on above: Order Comment: Speci men Type: BLOOD SPECIMEN Ordering Facility: [facility] Address: [address] [place] [address] Performed By: #### 5 7021-8 #### [facility] CLIA [id number] [address] [place] [address] Anion gap [Moles/Vol] 10 mmol/L Normal 9-18 [facility] Comment on above: Order Comment: Speci men Type: BLOOD SPECIMEN Ordering Facility: [facility] Address: [address] [place] [address] Performed By: #### 5 7021-8 #### [facility] CLIA [id number] [address] [place] [address] [facility] Calcium [Mass/Vol] 8.2 mg/dL Low 8.5-10.2 [facility] Comment on above: Order Comment: Speci men Type: BLOOD SPECIMEN Ordering Facility: [facility] Address: [address] [place] [address] Performed By: #### 5 7021-8 #### [facility] CLIA [id number] [address] [place] [address] [place] Chloride [Moles/Vol] 99 mmol/L Normal 97-105 [facility] Comment on above: Order Comment: Speci men Type: BLOOD SPECIMEN Ordering Facility: [facility] Address: [address] [place] [address] Performed By: #### 5 7021-8 #### [facility] CLIA [id number] [address] CO2 [Moles/Vol] 24 mmol/L Normal 22-30 [facility] Comment on above: Order Comment: Speci men Type: BLOOD SPECIMEN Ordering Facility: [facility] Address: [address] [place] [address] Performed By: #### 5 7021-8 #### [facility] CLIA [id number] [address] Creatinine [Mass/Vol] 2.79 mg/dL High 0.73-1.22 [facility] Comment on above: Order Comment: Speci men Type: BLOOD SPECIMEN Ordering Facility: [facility] Address: [address] [place] [address] Performed By: #### 5 7021-8 #### [facility] CLIA [id number] [address] [place] [address] Creatinine and Glomerular filtration rate.predicted panel (S/P/Bld) 23 mL/min/1.73m??? Low >=60 [facility] Comment on above: Order Comment: Speci men Type: BLOOD SPECIMEN Ordering Facility: [facility] Address: [address] [place] [address] Result Comment: Zoë mated Glomerular Filtration Rate [...] 7021-8 #### [facility] CLIA [id number] [address] [place] [address] [place] Glucose [Mass/Vol] 96 mg/dL Normal 74-99 [facility] Comment on above: Order Comment: Camilo redman Type: BLOOD SPECIMEN Ordering Facility: [facility] Address: [address] [place] [address] Result Comment: The [place] Diabetes [employer] (ADA) provides guidance for cutoff [...] Standards of Medical Care in Diabetes 2016, [place] [employer]. Diabetes Care. 2016.39(Suppl 1). Performed By: #### 5 7021-8 #### [facility] CLIA [id number] [address] [place] [address] [place] Phosphate [Mass/Vol] 3.1 mg/dL Normal 2.7-4.8 [facility] Comment on above: Order Comment: Camilo redman Type: BLOOD SPECIMEN Ordering Facility: [facility] Address: [address] [place] [address] Performed By: #### 5 7021-8 #### [facility] CLIA [id number] [address] [place] [address] [place] Potassium [Moles/Vol] 4.3 mmol/L Normal 3.7-5.1 [facility] Comment on above: Order Comment: Mykei feroz Type: BLOOD SPECIMEN Ordering Facility: [facility] Address: [address] [place] [address] Performed By: #### 5 7021-8 #### [facility] CLIA [id number] [address] [place] [address] [place] Sodium [Moles/Vol] 133 mmol/L Low 136-144 [facility] Comment on above: Order Comment: Speci men Type: BLOOD SPECIMEN Ordering Facility: [facility] Address: [place] [id number] Performed By: #### 5 7021-8 #### [facility] CLIA [id number] [address] [place] Urea nitrogen [Mass/Vol] 37 mg/dL High 9-24 [facility] Comment on above: Order Comment: Speci feroz Type: BLOOD SPECIMEN Ordering Facility: [facility] Address: [place] [id number] Performed By: #### 5 7021-8 #### [facility] CLIA [id number] [address] [place] ANES POSTPROC EVALon 023 ANES POSTPROC EVAL HNO ID: [id number] Author: Junior Garcia MD Service: Anesthesiology Author Type: Anesthesiologist Type: Anesthesia Postprocedure Evaluation Filed: 03/07/2023 6:40 AM Note Text: POST ANESTHESIA EVALUATION NOTE : 1945 Procedure Summary Date: 03/05/23 Room / Location: MT OR / [facility] OR Anesthesia Start: 843 Anesthesia Stop: 939 Procedure: REMOVAL OF PERMANENT INTRAPERITONEAL CATHETER (Abdomen) Diagnosis: Peritonitis (HCC) (Peritonitis (HCC) [K65.9]) Surgeons: Ashely Lee MD Responsible Provider: Junior Garcia MD [...] March 07, 2023 TIME: 6:39 AM CSN: [id number] Normal [facility] NURSING PROGon 03-07-2023 NURSING PROG HNO ID: [id number] Author: Marine Perdomo RN Service: ? Author Type: Registered Nurse Type: Nursing Progress Note Filed: 03/07/2023 12:19 PM Note Text: Hemodialysis tx completed Negra well Stable Fluid Balance -1000 ml off Last bp 94/67 p 100 rr 18 temp 36.5 See flow sheet for details Report given Normal [facility] Renal function 2000 panelon 03-07-2023 Albumin [Mass/Vol] 3.2 g/dL Low 3.9-4.9 [facility] Comment on above: Order Comment: Specloretta redman Type: BLOOD SPECIMEN Ordering Facility: [facility] Address: [address] [place] [address] Performed By: #### 2 4362-6 #### [facility] CLIA [id number] [address] [place] [address] [place] Anion gap [Moles/Vol] 7 mmol/L Low 9-18 [facility] Comment on above: Order Comment: Camilo redman Type: BLOOD SPECIMEN Ordering Facility: [facility] Address: [address] [place] [address] Performed By: #### 2 4362-6 #### [facility] CLIA [id number] [address] [place] [address] [place] Calcium [Mass/Vol] 8.8 mg/dL Normal 8.5-10.2 [facility] Comment on above: Order Comment: Mykei feroz Type: BLOOD SPECIMEN Ordering Facility: [facility] Address: [address] [place] [address] Performed By: #### 2 4362-6 #### [facility] CLIA [id number] [address] [place] [address] [place] Chloride [Moles/Vol] 100 mmol/L Normal 97-105 [facility] Comment on above: Order Comment: Speci men Type: BLOOD SPECIMEN Ordering Facility: [facility] Address: [address] [place] [address] Performed By: #### 2 4362-6 #### [facility] CLIA [id number] [address] [place] [address] [place] CO2 [Moles/Vol] 24 mmol/L Normal 22-30 [facility] Comment on above: Order Comment: Speci men Type: BLOOD SPECIMEN Ordering Facility: [facility] Address: [address] [place] [address] Performed By: #### 2 4362-6 #### [facility] CLIA [id number] [address] [place] [address] [place] Creatinine [Mass/Vol] 2.70 mg/dL High 0.73-1.22 [facility] Comment on above: Order Comment: Speci men Type: BLOOD SPECIMEN Ordering Facility: [facility] Address: [address] [place] [address] Performed By: #### 2 4362-6 #### [facility] CLIA [id number] [address] [place] [address] Creatinine and Glomerular filtration rate.predicted panel (S/P/Bld) 24 mL/min/1.73m??? Low >=60 [facility] Comment on above: Order Comment: Speci men Type: BLOOD SPECIMEN Ordering Facility: [facility] Address: [address] [place] [address] Result Comment: Zoë mated Glomerular Filtration Rate [...] GFR. Performed By: #### 2 4362-6 #### [facility] CLIA [id number] [address] [place] [address] [place] Glucose [Mass/Vol] 101 mg/dL High 74-99 [facility] Comment on above: Order Comment: Camilo redman Type: BLOOD SPECIMEN Ordering Facility: [facility] Address: [address] [place] [address] Result Comment: The [place] [employer] (ADA) provides guidance for cutoff [...] Standards of Medical Care in Diabetes 2016, [place] [employer]. Diabetes Care. 2016.39(Suppl 1). Performed By: #### 2 4362-6 #### [facility] CLIA [id number] [address] [place] Phosphate [Mass/Vol] 2.6 mg/dL Low 2.7-4.8 [facility] Comment on above: Order Comment: Camilo redman Type: BLOOD SPECIMEN Ordering Facility: [facility] Address: [address] [place] [address] Performed By: #### 2 4362-6 #### [facility] CLIA [id number] [address] [place] [address] [place] Potassium [Moles/Vol] 4.9 mmol/L Normal 3.7-5.1 [facility] Comment on above: Order Comment: Camilo redman Type: BLOOD SPECIMEN Ordering Facility: [facility] Address: [address] [place] [address] Performed By: #### 2 4362-6 #### [facility] CLIA [id number] [address] [place] [address] [place] Sodium [Moles/Vol] 131 mmol/L Low 136-144 [facility] Comment on above: Order Comment: Camilo redman Type: BLOOD SPECIMEN Ordering Facility: [facility] Address: [address] [place] [address] Performed By: #### 2 4362-6 #### [facility] CLIA [id number] 1 [place] [id number] [place] Urea nitrogen [Mass/Vol] 40 mg/dL High 9-24 [facility] Comment on above: Order Comment: Speci men Type: BLOOD SPECIMEN Ordering Facility: [facility] Address: [place] [id number] Performed By: #### 2 4362-6 #### [facility] CLIA [id number] [address] [place] THERAPY NTon 03-07-2023 THERAPY NT HNO ID: [id number] Author: Charlotte Agosto OTR/L Service: Occupational Therapy Author Type: Occupational Therapist Type: Therapy (PT/OT/Speech/Resp) Filed: 03/07/2023 3:43 PM Note Text: Occupational Therapy Evaluation SERVICE DATE: 03/07/2023 SERVICE TIME: 1420 to 1443 ROOM: [place] [address] Recommended Discharge Disposition: Home OT Recommended Discharge [...] Occupational Therapy Problem List: Impaired Self Care Cognition/Communicatio n Deficits Responsiveness: Alert Follows Commands: 3-step Commands, [...] be disconti (more content not included)... Normal [facility] THERAPY NT HNO ID: [id number] Author: Mónica Hughes PT Service: Physical Therapy Author Type: Physical Therapist Type: Therapy (PT/OT/Speech/Resp) Filed: 03/07/2023 12:06 PM Note Text: PHYSICAL THERAPY MISSED VISIT SERVICE DATE: 03/07/2023 SERVICE TIME: 1131 to 1131 ROOM: [place] [address] ([facility]) Patient not seen due to Test / Procedure (at HD). SIGNATURE: Mónica Hughes PT PATIENT NAME: Franklin Burton DATE: March 07, 2023 TIME: 12:06 PM Normal [facility] CBC W Auto Differential pane l (Bld)on 03-06-2023 Basophils (Bld) [#/Vol] 0.06 10*3/uL Normal <0.11 [facility] Comment on above: Order Comment: Speci men Type: BLOOD SPECIMEN Ordering Facility: [facility] Address: [address] [place] [address] Performed By: #### 5 7021-8 #### [facility] CLIA [id number] [address] [place] [address] [place] Basophils/100 WBC (Bld) 0.6 % Normal [facility] Comment on above: Order Comment: Camilo redman Type: BLOOD SPECIMEN Ordering Facility: [facility] Address: [address] [place] [address] Performed By: #### 5 7021-8 #### [facility] CLIA [id number] [address] [place] [address] [place] Differential cell count method Nom (Bld) Auto Normal [facility] Comment on above: Order Comment: Speci men Type: BLOOD SPECIMEN Ordering Facility: [facility] Address: [address] [place] [address] Performed By: #### 5 7021-8 #### [facility] CLIA [id number] [address] [place] Eosinophils (Bld) [#/Vol] 0.06 10*3/uL Normal <0.46 [facility] Comment on above: Order Comment: Speci men Type: BLOOD SPECIMEN Ordering Facility: [facility] Address: [address] [place] [address] Performed By: #### 5 7021-8 #### [facility] CLIA [id number] [address] [place] Eosinophils/100 WBC (Bld) 0.6 % Normal [facility] Comment on above: Order Comment: Speci men Type: BLOOD SPECIMEN Ordering Facility: [facility] Address: [address] [place] [address] Performed By: #### 5 7021-8 #### [facility] CLIA [id number] [address] [place] Erythrocyte distribution width (RBC) [Ratio] 13.2 % Normal 11.5-15.0 [facility] Comment on above: Order Comment: Speci men Type: BLOOD SPECIMEN Ordering Facility: [facility] Address: [address] [place] [address] Performed By: #### 5 7021-8 #### [facility] CLIA [id number] [address] [place] Hematocrit (Bld) [Volume fraction] 36.3 % Low 39.0-51.0 [facility] Comment on above: Order Comment: Speci men Type: BLOOD SPECIMEN Ordering Facility: [facility] Address: [address] [place] [address] Performed By: #### 5 7021-8 #### [facility] CLIA [id number] [address] [place] Hemoglobin (Bld) [Mass/Vol] 12.2 g/dL Low 13.0-17.0 [facility] Comment on above: Order Comment: Speci men Type: BLOOD SPECIMEN Ordering Facility: [facility] Address: [address] [place] [address] Performed By: #### 5 7021-8 #### [facility] CLIA [id number] [address] Immature granulocytes (Bld) [#/Vol] 0.08 10*3/uL Normal <0.10 [facility] Comment on above: Order Comment: Speci men Type: BLOOD SPECIMEN Ordering Facility: [facility] Address: [address] [place] [address] Performed By: #### 5 7021-8 #### [facility] CLIA [id number] [address] Immature granulocytes/100 WBC (Bld) 0.8 % Normal [facility] Comment on above: Order Comment: Speci men Type: BLOOD SPECIMEN Ordering Facility: [facility] Address: [address] [place] [address] Performed By: #### 5 7021-8 #### [facility] CLIA [id number] [address] Lymphocytes (Bld) [#/Vol] 0.95 10*3/uL Low 1.00-4.00 [facility] Comment on above: Order Comment: Speci men Type: BLOOD SPECIMEN Ordering Facility: [facility] Address: [address] [place] [address] Performed By: #### 5 7021-8 #### [facility] CLIA [id number] [address] Lymphocytes/100 WBC (Bld) 9.6 % Normal [facility] Comment on above: Order Comment: Speci men Type: BLOOD SPECIMEN Ordering Facility: [facility] Address: [address] [place] [address] Performed By: #### 5 7021-8 #### [facility] CLIA [id number] [address] [place] MCH (RBC) [Entitic mass] 31.4 pg Normal 26.0-34.0 [facility] Comment on above: Order Comment: Speci men Type: BLOOD SPECIMEN Ordering Facility: [facility] Address: [address] [place] [address] Performed By: #### 5 7021-8 #### [facility] CLIA [id number] [address] STATES [facility] MCHC (RBC) [Mass/Vol] 33.6 g/dL Normal 30.5-36.0 [facility] Comment on above: Order Comment: Speci men Type: BLOOD SPECIMEN Ordering Facility: [facility] Address: [address] [place] [address] Performed By: #### 5 7021-8 #### [facility] CLIA [id number] [address] MCV (RBC) [Entitic vol] 93.3 fL Normal 80.0-100.0 [facility] Comment on above: Order Comment: Speci men Type: BLOOD SPECIMEN Ordering Facility: [facility] Address: [address] [place] [address] Performed By: #### 5 7021-8 #### [facility] CLIA [id number] [address] Monocytes (Bld) [#/Vol] 0.99 10*3/uL High <0.87 [facility] Comment on above: Order Comment: Speci men Type: BLOOD SPECIMEN Ordering Facility: [facility] Address: [address] [place] [address] Performed By: #### 5 7021-8 #### [facility] CLIA [id number] [address] Monocytes/100 WBC (Bld) 10.0 % Normal [facility] Comment on above: Order Comment: Speci men Type: BLOOD SPECIMEN Ordering Facility: [facility] Address: [address] [place] [address] Performed By: #### 5 7021-8 #### [facility] CLIA [id number] [address] [place] Neutrophils (Bld) [#/Vol] 7.72 10*3/uL High 1.45-7.50 [facility] Comment on above: Order Comment: Speci men Type: BLOOD SPECIMEN Ordering Facility: [facility] Address: [address] [place] [address] Performed By: #### 5 7021-8 #### [facility] CLIA [id number] [address] STATES [facility] Neutrophils/100 WBC (Bld) 78.4 % Normal [facility] Comment on above: Order Comment: Speci men Type: BLOOD SPECIMEN Ordering Facility: [facility] Address: [address] [place] [address] Performed By: #### 5 7021-8 #### [facility] CLIA [id number] [address] [place] Nucleated RBC (Bld) [#/Vol] 10*3/uL Normal <0.01 [facility] Comment on above: Order Comment: Speci men Type: BLOOD SPECIMEN Ordering Facility: [facility] Address: [address] [place] [address] Performed By: #### 5 7021-8 #### [facility] CLIA [id number] [address] [facility] Nucleated RBC/100 WBC (Bld) [Ratio] 0.0 /100 WBC Normal [facility] Comment on above: Order Comment: Speci men Type: BLOOD SPECIMEN Ordering Facility: [facility] Address: [address] [place] [address] Performed By: #### 5 7021-8 #### [facility] CLIA [id number] [address] [place] Platelet mean volume (Bld) [Entitic vol] 9.3 fL Normal 9.0-12.7 [facility] Comment on above: Order Comment: Speci men Type: BLOOD SPECIMEN Ordering Facility: [facility] Address: [address] [place] [address] Performed By: #### 5 7021-8 #### [facility] CLIA [id number] [address] [place] [address] [place] Platelets (Bld) [#/Vol] 203 10*3/uL Normal 150-400 [facility] Comment on above: Order Comment: Speci men Type: BLOOD SPECIMEN Ordering Facility: [facility] Address: [address] [place] [address] Performed By: #### 5 7021-8 #### [facility] CLIA [id number] [address] [place] [address] [place] RBC (Bld) [#/Vol] 3.89 10*6/uL Low 4.20-6.00 [facility] Comment on above: Order Comment: Speci men Type: BLOOD SPECIMEN Ordering Facility: [facility] Address: [address] [place] [address] Performed By: #### 5 7021-8 #### [facility] CLIA [id number] [address] [place] [address] [place] WBC (Bld) [#/Vol] 9.86 10*3/uL Normal 3.70-11.00 [facility] Comment on above: Order Comment: Speci men Type: BLOOD SPECIMEN Ordering Facility: [facility] Address: [address] [place] [address] Performed By: #### 5 7021-8 #### [facility] CLIA [id number] [address] [place] CONSULT PROGon 03-06-2023 CONSULT PROG HNO ID: [id number] Author: January Hunter MD Service: Infectious Disease Author Type: Physician Type: Consult Progress Note Filed: 03/06/2023 5:57 PM Note Text: PROGRESS NOTE INFECTIOUS DISEASE Attending saw patient March 06 at 1600 independently BRIEF SUMMARY: This is a 77 YO Frank male who was seen by ID consultation for PD catheter infection. 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 House medicine requested consult based on [place] medical records revealing PD catheter aspirate was [...] is feeling better, but overall still feels lousy. He still has some abdominal pain, but says there is no increase in pain with movement. He describes the pain as constant and achy. He endorses nausea and feels like he needs to vomit, but there is nothing coming up. He endorses a minor tension headache of [...] 8 H PRN oxymetazoline 0.05 % 2 [employer] (GENASAL) [address] [employer] EACH NOSTRIL BID PRN calcium carbonate 1,000 mg chewable tab(s) (TUMS) 1,000 mg ORAL TID PRN OBJECTIVE: Physical Exam: BP 143/77 Pulse 93 Temp (Src) 98.6 (Oral) Resp 18 Ht 5' 8 (1.73m) Wt 212 lb 11.2 oz (96.5kg) SpO2 95% BMI 32.35 kg/(m2). O2 Therapy: Room Air Lines, Drains, and Airways Line Duration Peripheral 03/04/232136 [facility] (more content not included)... Normal [facility] Renal function 2000 panelon 03-06-2023 Albumin [Mass/Vol] 3.4 g/dL Low 3.9-4.9 [facility] Comment on above: Order Comment: Speci men Type: BLOOD SPECIMEN Ordering Facility: [facility] Address: [address] [place] [address] Performed By: #### 5 7021-8 #### [facility] CLIA [id number] 1 [place] [address] [place] Anion gap [Moles/Vol] 9 mmol/L Normal 9-18 [facility] Comment on above: Order Comment: Speci men Type: BLOOD SPECIMEN Ordering Facility: [facility] Address: [address] [place] [address] Performed By: #### 5 7021-8 #### [facility] CLIA [id number] [address] [place] [address] [place] Calcium [Mass/Vol] 8.8 mg/dL Normal 8.5-10.2 [facility] Comment on above: Order Comment: Speci men Type: BLOOD SPECIMEN Ordering Facility: [facility] Address: [address] [place] [address] Performed By: #### 5 7021-8 #### [facility] CLIA [id number] [address] [place] [address] [place] Chloride [Moles/Vol] 99 mmol/L Normal 97-105 [facility] Comment on above: Order Comment: Speci men Type: BLOOD SPECIMEN Ordering Facility: [facility] Address: [address] [place] [address] Performed By: #### 5 7021-8 #### [facility] CLIA [id number] [address] [place] [address] [place] CO2 [Moles/Vol] 25 mmol/L Normal 22-30 [facility] Comment on above: Order Comment: Speci men Type: BLOOD SPECIMEN Ordering Facility: [facility] Address: [address] [place] [address] Performed By: #### 5 7021-8 #### [facility] CLIA [id number] [address] [place] [address] [place] Creatinine [Mass/Vol] 2.39 mg/dL High 0.73-1.22 [facility] Comment on above: Order Comment: Camilo redman Type: BLOOD SPECIMEN Ordering Facility: [facility] Address: [address] [place] [address] Performed By: #### 5 7021-8 #### [facility] CLIA [id number] [address] [facility] Creatinine and Glomerular filtration rate.predicted panel (S/P/Bld) 27 mL/min/1.73m??? Low >=60 [facility] Comment on above: Order Comment: Camilo redman Type: BLOOD SPECIMEN Ordering Facility: [facility] Address: [address] [place] [address] Result Comment: Zoë mated Glomerular Filtration Rate [...] GFR. Performed By: #### 5 7021-8 #### [facility] CLIA [id number] [address] [place] [address] [place] Glucose [Mass/Vol] 118 mg/dL High 74-99 [facility] Comment on above: Order Comment: Camilo redman Type: BLOOD SPECIMEN Ordering Facility: [facility] Address: [address] [place] [address] Result Comment: The [place] [employer] (ADA) provides guidance for cutoff [...] Standards of Medical Care in Diabetes 2016, [place] [employer]. Diabetes Care. 2016.39(Suppl 1). Performed By: #### 5 7021-8 #### [facility] CLIA [id number] [address] [facility] Phosphate [Mass/Vol] 2.5 mg/dL Low 2.7-4.8 [facility] Comment on above: Order Comment: Speci men Type: BLOOD SPECIMEN Ordering Facility: [facility] Address: [address] [place] [address] Performed By: #### 5 7021-8 #### [facility] CLIA [id number] [address] [place] Potassium [Moles/Vol] 4.3 mmol/L Normal 3.7-5.1 [facility] Comment on above: Order Comment: Speci men Type: BLOOD SPECIMEN Ordering Facility: [facility] Address: [address] [place] [address] Performed By: #### 5 7021-8 #### [facility] CLIA [id number] [address] [facility] Sodium [Moles/Vol] 133 mmol/L Low 136-144 [facility] Comment on above: Order Comment: Speci men Type: BLOOD SPECIMEN Ordering Facility: [facility] Address: [address] [place] [address] Performed By: #### 5 7021-8 #### [facility] CLIA [id number] [address] [place] Urea nitrogen [Mass/Vol] 29 mg/dL High 9-24 [facility] Comment on above: Order Comment: Speci men Type: BLOOD SPECIMEN Ordering Facility: [facility] Address: [address] [place] [address] Performed By: #### 5 7021-8 #### [facility] CLIA [id number] [address] [place] THERAPY NTon 03-06-2023 THERAPY NT HNO ID: [id number] Author: Anay Burnett OT/Jin Service: Occupational Therapy Author Type: Occupational Therapist Type: Therapy (PT/OT/Speech/Resp) Filed: 03/06/2023 3:53 PM Note Text: OCCUPATIONAL THERAPY MISSED VISIT SERVICE DATE: 03/06/2023 SERVICE TIME: 1548 to 1550 ROOM: [id number] Patient not seen due to declined Treatment .Patient not feeling well, c/o increased abdominal pain and not feeling up to any activity. RN confirms Having a rough day. Maybe tomorrow. Patient had been getting up to bathroom with limited assist of one, but has had increased weakness and not up as much.Will follow up as patient status and schedule permit. SIGNATURE: HERMELINDA Oviedo PATIENT NAME: Franklin Burton DATE: March 06, 2023 TIME: 3:52 PM [facility] ANES PRE-OPon 03-05-2023 ANES PRE-OP HNO ID: [id number] Author: Junior Garcia MD Service: Anesthesiology Author Type: Anesthesiologist Type: Anesthesia Preprocedure Evaluation Filed: 03/05/2023 8:10 AM Note Text: ANESTHESIOLOGY DAY OF SURGERY NOTE : 1945 Procedure Information Date/Time: 03/05/23829 Procedure: REMOVAL OF PERMANENT INTRAPERITONEAL CATHETER (Abdomen) Location: [facility] OR / [facility] OR Surgeons: Ashely Lee MD Estimated body mass index is 32.34 kg/m? as calculated from the following: Height as of this encounter: 172.7 cm (5' 8). Weight as of this encounter: 96.5 kg [...] and consent discussed: yes. Patient / Responsible Constitution Party agrees to proceed: yes Patient / Surrogate agrees to blood products: Yes Significant changes in the patient condition since the History and Physical, not otherwise documented in primary service progress note: no. Potential Anesthesia issues that may suggest increased risk of complications or contraindication to planned procedure: none. Vitals Value Taken Time BP 130/82 03/05/23 0532 Pulse 87 03/05/23 0532 Resp 18 03/05/23 0532 Temp 37.1 ?C (98.8 ?F) 03/05/23 0532 SpO2 97 % 03/05/23 0532 Facility-Administered Medications as of 03/05/2023 Medication Dose Route Frequency - metoclopramide HCl 5 mg (REGLAN) 5 mg ORAL q 8 H PRN - oxymetazoline 0.05 % 2 [employer] ([place]SAL) 2 [employer] EACH NOSTRIL BID PRN - calcium carbonate [...] DAILY AT BEDTIME FOR 90 DAYS - oxyCODONE-acetaminophe n (PERCOCET) 5-325 mg tablet TAKE 1 TABLET [...] March 05, 2023 TIME: 7:18 AM CSN: [id number] [facility] BRIEF OP NOTon 03-05-2023 BRIEF OP NOT HNO ID: [id number] Author: Yair Hassan DO Service: General Surgery Author Type: Resident Type: Brief Op Note Filed: 03/05/2023 9:47 AM Note Text: Attestation signed by Ashely Lee MD at 04/01/2023 12:37 PM Attestation: I was present for the critical and jorge portions of the surgery and I was immediately available to provide assistance. Ashely Lee MD GENERAL SURGERY BRIEF OP NOTE LOG ID: [id number] Surgery/Procedure Date: 03/05/2023 Incision/Procedure Start Time: 9:12 AM Incision Close/Procedure End Time: 9:40 AM Surgeon(s) and Machinist Supervisor(s): Surgeon(s) and Role: * Ashely Lee MD - Primary * Yair Hassan [...] WITH GRAM STAIN, ANAEROBE CULTURE FOR OR Ashely Lee MD 03/05/2023 9:23 AM A : PERITONEAL DIALYSIS CATHETER Device DEVICE SURGICAL PATHOLOGY Ashely Lee MD 03/05/2023 9:25 AM Wound Classification: Class 4, operative dirty wound with acute bacterial inflammation Complications: None Pre-Op/Pre-Procedure Diagnosis: Pre-Op Diagnosis Codes: * Peritonitis (HCC) [K65.9] Post-Op/Post-Procedure Diagnosis: * Peritonitis (HCC) [K65.9] * PD catheter infection SIGNATURE: Yair Westling, DO PATIENT NAME: Franklin Burton DATE: March 05, 2023 TIME: 9:46 AM PAGER/CONTACT #: [phone] From 5pm to 6 am and on weekends, please page general surgery on-call [phone] Normal [facility] Bacteria Spec Anaerobe Culto n 03-05-2023 Bacteria identified Anaer cx Nom (Unsp spec) Negative Normal [facility] Comment on above: Performed By: #### 6 35-3, 6462-6 ####[facility] [id number] [place] [address] [place] Bacteria Wnd Culton 03-05-20 Bacteria identified Cx Nom (Wound) ORGANISM ID: 1 Few Stenotrophomonas maltophilia This test was developed and its performance characteristics determined by [facility]'s [facility] Pathology and Laboratory Medicine [place] ([facility]). It has not been cleared or approved by the FDA. [facility] is regulated under CLIA as q ualified to perform high-complexity testing. This test is used for clinical purposes. It should not be regarded as investigational or for research. GRAM STAIN: No organisms seen Many Polymorphonuclear leukocytes ORGANISM ID: 1 (STENOTROPHOMONAS MALTOPHILIA) -- ANTIBIOTIC INTERPRETATION OLAYINKA STATUS REFERENCE RANGE -- Trimeth sulfameth S 1 F Stenotrophomonas maltophilia is intrinsically resistant to aminoglycosides and most B-lactam agents including carbapenem. Levofloxacin S 1 F Susceptible <=2 , Intermediate >2 , Resistant >4 Abnormal [facility] Comment on above: Performed By: #### 6 35-3, 6462-6 ####[facility] [id number] [place] [address] [place] NURSING PROGon 03-05-2023 NURSING PROG HNO ID: [id number] Author: Marine Perdomo RN Service: ? Author Type: Registered Nurse Type: Nursing Progress Note Filed: 03/05/2023 4:49 PM Note Text: Hemodialysis tx completed Negra well Stable Fluid Balance -300 ml off Last bp 131/76 p 93 rr 18 temp 36.5 See flow sheet for details Report given Normal [facility] OPERATIVE NOon 03-05-2023 OPERATIVE NO HNO ID: [id number] Author: Yair Hassan DO Service: General Surgery Author Type: Resident Type: Operative Report Filed: 03/05/2023 9:54 AM Note Text: Attestation signed by Ashely Lee MD at 03/13/2023 3:43 PM Attestation: I was present for the critical and jorge portions of the surgery and I was immediately available to provide assistance. Ashely Lee MD OPERATIVE REPORT LOG ID: [id number] Surgery/Procedure Date: 03/05/2023 Incision/Procedure Start Time: 9:12 AM Incision Close/Procedure End Time: 9:40 AM Surgeon(s)/Procedurali st(s) and Machinist Supervisor(s): Surgeon(s) and Role: * Ashely Lee MD - Primary * Yair Hassan [...] WITH GRAM STAIN, ANAEROBE CULTURE FOR OR Ashely Lee MD 03/05/2023 9:23 AM A : PERITONEAL DIALYSIS CATHETER Device DEVICE SURGICAL PATHOLOGY Ashely Lee MD 03/05/2023 9:25 AM Antibiotics: Current [...] 4 TIMES DAILY 03/01/23 1104 03/03/23 1300 sulfamethoxazole-trime thoprim 800-160 mg 0.5 tablet (BACTRIM DS) Status: Discontinued 03/03/23 1412 ORAL EVERY FRI-FRI-Fri03/03/23 1239 03/01/23 1130 vancomycin 1.5 g in D5W 250 mL (VANCOCIN) 03/01/23 1334 INTRAVENOUS ONCE 03/01/23 1121 03/01/23 0000 vancomycin iv piggyback 1 g in D5W 200 mL (VANCOCIN) Status: Discontinued 02/28/23 2347 INTRAVENOUS EVERY 12 HOURS 02/28/23 2336 Wound Classification: Class 4, operative dirty wound with acute bacterial inflammation Complications: None Pre-Op/Pre-Procedure Diagnosis: Pre-Op Diagnosis Codes: * Peritonitis (HCC) [K65.9] Post-Op/Post-Procedure Diagnosis: * Peritonitis (HCC) [K65.9] * PD [...] family and/or the patient's medical power of ip technology transactions attorney. The risks discussed include but are not [...] operating room. After induction of general anesthesia, administration/confirm ation of marlyn-operative antibiotics and VTE prophylaxis, the patient was positioned, prepped and draped in us (more content not included)... Normal [facility] PT panel Coag (PPP)on 2022 INR Coag (PPP) [Relative time] 1.2 {INR} Normal 0.9-1.3 [facility] Comment on above: Order Comment: Camilo redman Type: BLOOD SPECIMEN Ordering Facility: [facility] Address: [place] [address] Result Comment: Lidia min K Antagonist (VKA) Therapeutic Range: INR 2 to 3 (Target INR of 2.5) Note: For patients treated with VKA drugs, such as warfarin, the [place] [employer] 2012 Guideline recommends [...] to 3.5 (target INR of 3). Manoj GH, et al. Chest 2012, 141:7S-47S Nidia WEST et al. [facility] 2017, 70: 252-289 Performed By: #### 5 7021-8 #### [facility] CLIA [id number] [address] [facility] PT Coag (PPP) [Time] 12.2 s Normal 9.7-13.0 [facility] Comment on above: Order Comment: Camilo redman Type: BLOOD SPECIMEN Ordering Facility: [facility] Address: [place] [address] Performed By: #### 5 7021-8 #### [facility] CLIA [id number] [address] [place] Renal function 2000 panelon 03-05-2023 Albumin [Mass/Vol] 3.4 g/dL Low 3.9-4.9 [facility] Comment on above: Order Comment: Speci men Type: BLOOD SPECIMEN Ordering Facility: [facility] Address: [address] [place] [address] Performed By: #### 5 7021-8 #### [facility] CLIA [id number] [address] [place] [address] [place] Anion gap [Moles/Vol] 8 mmol/L Low 9-18 [facility] Comment on above: Order Comment: Speci men Type: BLOOD SPECIMEN Ordering Facility: [facility] Address: [address] [place] [address] Performed By: #### 5 7021-8 #### [facility] CLIA [id number] [address] [place] [address] [place] Calcium [Mass/Vol] 9.3 mg/dL Normal 8.5-10.2 [facility] Comment on above: Order Comment: Speci men Type: BLOOD SPECIMEN Ordering Facility: [facility] Address: [address] [place] [address] Performed By: #### 5 7021-8 #### [facility] CLIA [id number] [address] [place] [address] [place] Chloride [Moles/Vol] 101 mmol/L Normal 97-105 [facility] Comment on above: Order Comment: Speci men Type: BLOOD SPECIMEN Ordering Facility: [facility] Address: [address] [place] [address] Performed By: #### 5 7021-8 #### [facility] CLIA [id number] [address] [place] [address] [place] CO2 [Moles/Vol] 23 mmol/L Normal 22-30 [facility] Comment on above: Order Comment: Speci men Type: BLOOD SPECIMEN Ordering Facility: [facility] Address: [address] [place] [address] Performed By: #### 5 7021-8 #### [facility] CLIA [id number] [address] [place] [address] [place] Creatinine [Mass/Vol] 2.55 mg/dL High 0.73-1.22 [facility] Comment on above: Order Comment: Camilo redman Type: BLOOD SPECIMEN Ordering Facility: [facility] Address: [place] [address] Performed By: #### 5 7021-8 #### [facility] CLIA [id number] [address] [facility] Creatinine and Glomerular filtration rate.predicted panel (S/P/Bld) 25 mL/min/1.73m??? Low >=60 [facility] Comment on above: Order Comment: Camilo redman Type: BLOOD SPECIMEN Ordering Facility: [facility] Address: [place] [address] Result Comment: Zoë mated Glomerular Filtration Rate [...] GFR. Performed By: #### 5 7021-8 #### [facility] CLIA [id number] [address] [place] [address] [place] Glucose [Mass/Vol] 102 mg/dL High 74-99 [facility] Comment on above: Order Comment: Camilo feroz Type: BLOOD SPECIMEN Ordering Facility: [facility] Address: [address] [place] [address] Result Comment: The [place] Diabetes [employer] (ADA) provides guidance for cutoff [...] Standards of Medical Care in Diabetes 2016, [place] [employer]. Diabetes Care. 2016.39(Suppl 1). Performed By: #### 5 7021-8 #### [facility] CLIA [id number] [address] [place] Phosphate [Mass/Vol] 2.9 mg/dL Normal 2.7-4.8 [facility] Comment on above: Order Comment: Speci men Type: BLOOD SPECIMEN Ordering Facility: [facility] Address: [address] [place] [address] Performed By: #### 5 7021-8 #### [facility] CLIA [id number] [address] [place] Potassium [Moles/Vol] 4.9 mmol/L Normal 3.7-5.1 [facility] Comment on above: Order Comment: Speci men Type: BLOOD SPECIMEN Ordering Facility: [facility] Address: [address] [place] [address] Performed By: #### 5 7021-8 #### [facility] CLIA [id number] [address] [place] Sodium [Moles/Vol] 132 mmol/L Low 136-144 [facility] Comment on above: Order Comment: Speci men Type: BLOOD SPECIMEN Ordering Facility: [facility] Address: [address] [place] [address] Performed By: #### 5 7021-8 #### [facility] CLIA [id number] [address] [place] Urea nitrogen [Mass/Vol] 33 mg/dL High 9-24 [facility] Comment on above: Order Comment: Speci men Type: BLOOD SPECIMEN Ordering Facility: [facility] Address: [address] [place] [address] Performed By: #### 5 7021-8 #### [facility] CLIA [id number] [address] [place] SURGICAL PATHOLOGYon 10-18-2 023 CASE REPORT Normal [facility] Comment on above: Order Comment: Speci men Type: DEVICE SPECIMEN Ordering Facility: [facility] Address: [address] [place], [place] [id number] Result Comment: Surg [facility] Pathology Report Case: [id number] Authorizing Provider: Ashely Lee MD Collected: 03/05/2023 09:25 AM Ordering Location: [facility] Received: 03/05/2023 01:22 PM Pathologist: Jesus Newton MD Specimen: DEVICE, PERITONEAL DIALYSIS CATHETER Performed By: #### S #### [facility] CLIA [id number] [address] CLINICAL HISTORY Normal [facility] Comment on above: Order Comment: Speci men Type: DEVICE SPECIMEN Ordering Facility: [facility] Address: [address] [place] [address] Result Comment: Pre- op diagnosis: Peritonitis (HCC) [K65.9] Performed By: #### S #### [facility] CLIA [id number] [address] FINAL DIAGNOSIS Normal [facility] Comment on above: Order Comment: Speci men Type: DEVICE SPECIMEN Ordering Facility: [facility] Address: [address] [place] [address] Result Comment: A. P eritoneal dialysis catheter, removal: - Unremarkable medical lab director. Gross diagnosis only Performed By: #### S #### [facility] CLIA [id number] [address] FINAL PERFORMING LAB Normal [facility] Comment on above: Order Comment: Speci men Type: DEVICE SPECIMEN Ordering Facility: [facility] Address: [address] [place] [address] Result Comment: Diag nostic interpretation performed at [facility], [address] [place] [address] CLIA# [id number] Supervisor Packing: Jesus Newton M.D. Performed By: #### S #### [facility] CLIA [id number] [address] GROSS DESCRIPTION A. DEVICE Normal [facility] Comment on above: Order Comment: Speci men Type: DEVICE SPECIMEN Ordering Facility: [facility] Address: [address], [place] [address] Result Comment: A. R eceived fresh labeled peritoneal dialysis catheter is a segment of tubing measuring 33 cm in length and 0.5 cm in greatest width. No sections are submitted. The specimen is for gross examination only. Gross examination performed at [facility], [address] [place] [address] KVB March 05, 2023 2:16 PM Performed By: #### S #### [facility] CLIA [id number] [address] [facility] XR CHEST 1V FRONTALon 2022 XR CHEST [...] probable subsegmental atelectasis at the lung bases. [employer] [facility] Transcribe Date/Time: Mar 05 2023 1:35P Dictated by : DANIEL RAMIREZ MD This examination was interpreted and the report reviewed and electronically signed by: DANIEL RAMIREZ MD on Mar 05 2023 1:36PM EST [id number] Normal [facility] CONSULTon 03-04-2023 CONSULT HNO ID: [id number] Author: Leanne Sanchez DO Service: General Surgery Author Type: Resident Type: Consults Filed: 03/04/2023 10:38 AM Note Text: Attestation signed by Ashely Lee MD at 04/01/2023 12:38 PM I personally saw and examined the patient on 03/04/23. I reviewed the resident's note. I agree with the resident's assessment and plan unless otherwise noted. Ashely Lee MD CONSULT: Emergency Geneal Surgery Service SERVICE DATE: 03/04/2023 SERVICE TIME: 10:09 AM REASON FOR CONSULT: infected PD catheter REQUESTING PHYSICIAN: Dr. 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 Initially presented to [place] and 02/25 CTAP showed gastritis, duodenitis; bladder wall thickening, enlarged prostate. He had fluid cultures of his peritonael cavity that were growing stenotrophomonas maltophilia. He had his PD catheter placed by Dr. Thomas at [facility] on 12/31/22. He has a RUE [...] BEDTIME FOR 90 DAYS, Disp: , Rfl: oxyCODONE-acetaminophe n (PERCOCET) 5-325 mg tablet, TAKE 1 TABLET [...] -- 11.0* (more content not included)... Normal [facility] Renal function 2000 panelon 03-04-2023 Albumin [Mass/Vol] 3.4 g/dL Low 3.9-4.9 [facility] Comment on above: Order Comment: Camilo redman Type: BLOOD SPECIMEN Ordering Facility: [facility] Address: [address] [place] [address] Performed By: #### 2 4362-6 #### [facility] CLIA [id number] [address] [place] [address] [place] Anion gap [Moles/Vol] 10 mmol/L Normal 9-18 [facility] Comment on above: Order Comment: Camilo redman Type: BLOOD SPECIMEN Ordering Facility: [facility] Address: [address] [place] [address] Performed By: #### 2 4362-6 #### [facility] CLIA [id number] [address] [place] [address] [place] Calcium [Mass/Vol] 8.3 mg/dL Low 8.5-10.2 [facility] Comment on above: Order Comment: Speci men Type: BLOOD SPECIMEN Ordering Facility: [facility] Address: [address] [place] [address] Performed By: #### 2 4362-6 #### [facility] CLIA [id number] [address] [place] [address] [place] Chloride [Moles/Vol] 101 mmol/L Normal 97-105 [facility] Comment on above: Order Comment: Speci men Type: BLOOD SPECIMEN Ordering Facility: [facility] Address: [address] [place] [address] Performed By: #### 2 4362-6 #### [facility] CLIA [id number] [address] [place] CO2 [Moles/Vol] 24 mmol/L Normal 22-30 [facility] Comment on above: Order Comment: Speci men Type: BLOOD SPECIMEN Ordering Facility: [facility] Address: [address] [place] [address] Performed By: #### 2 4362-6 #### [facility] CLIA [id number] [address] [place] Creatinine [Mass/Vol] 2.28 mg/dL High 0.73-1.22 [facility] Comment on above: Order Comment: Speci men Type: BLOOD SPECIMEN Ordering Facility: [facility] Address: [address] [place] [address] Performed By: #### 2 4362-6 #### [facility] CLIA [id number] [address] [place] Creatinine and Glomerular filtration rate.predicted panel (S/P/Bld) 29 mL/min/1.73m??? Low >=60 [facility] Comment on above: Order Comment: Speci men Type: BLOOD SPECIMEN Ordering Facility: [facility] Address: [address] [place] [address] Result Comment: Zoë mated Glomerular Filtration Rate [...] GFR. Performed By: #### 2 4362-6 #### [facility] CLIA [id number] [address] [place] [address] [place] Glucose [Mass/Vol] 104 mg/dL High 74-99 [facility] Comment on above: Order Comment: Camilo redman Type: BLOOD SPECIMEN Ordering Facility: [facility] Address: [facility] [place] [place] [address] Result Comment: The [place] [employer] (ADA) provides guidance for cutoff [...] Standards of Medical Care in Diabetes 2016, [place] [employer]. Diabetes Care. 2016.39(Suppl 1). Performed By: #### 2 4362-6 #### [facility] CLIA [id number] [address] [place] [address] [place] Phosphate [Mass/Vol] 2.1 mg/dL Low 2.7-4.8 [facility] Comment on above: Order Comment: Camilo redman Type: BLOOD SPECIMEN Ordering Facility: [facility] Address: [place] [address] Performed By: #### 2 4362-6 #### [facility] CLIA [id number] [address] [place] [address] [place] Potassium [Moles/Vol] 4.5 mmol/L Normal 3.7-5.1 [facility] Comment on above: Order Comment: Speci men Type: BLOOD SPECIMEN Ordering Facility: [facility] Address: [address] [place] [address] Performed By: #### 2 4362-6 #### [facility] CLIA [id number] [address] Sodium [Moles/Vol] 135 mmol/L Low 136-144 [facility] Comment on above: Order Comment: Speci men Type: BLOOD SPECIMEN Ordering Facility: [facility] Address: [address] [place] [address] Performed By: #### 2 4362-6 #### [facility] CLIA [id number] [address] Urea nitrogen [Mass/Vol] 23 mg/dL Normal 9-24 [facility] Comment on above: Order Comment: Speci men Type: BLOOD SPECIMEN Ordering Facility: [facility] Address: [address] [place] [address] Performed By: #### 2 4362-6 #### [facility] CLIA [id number] [address] THERAPY NTon 03-04-2023 THERAPY NT HNO ID: [id number] Author: Christine Osorio OTR/Jin Service: Occupational Therapy Author Type: Occupational Therapist Type: Therapy (PT/OT/Speech/Resp) Filed: 03/04/2023 4:08 PM Note Text: OCCUPATIONAL THERAPY MISSED VISIT SERVICE DATE: 03/04/2023 SERVICE TIME: 1553 to 1604 ROOM: [place] [address] Patient not seen due to Clinical Appropriateness. Pt currently nauseated and had episode of emesis a few minutes prior to start of session. Discussed home set up and prior level of functioning with pt and , Ada. Will reattempt as able/appropriate. SIGNATURE: EJ Gore/Jin PATIENT NAME: Franklin Burton DATE: March 04, 2023 TIME: 4:07 PM Normal [facility] THERAPY NT HNO ID: [id number] Author: Mónica Hughes, PT Service: Physical Therapy Author Type: Physical Therapist Type: Therapy (PT/OT/Speech/Resp) Filed: 03/04/2023 12:06 PM Note Text: Physical Therapy Evaluation SERVICE DATE: 03/04/2023 SERVICE TIME: 1015 to 1030 ROOM: [id number] Recommended Discharge Disposition: Home PT 6 Clicks [...] Weakness (generalized) Interventions Provided: Evaluation $ Evaluation-Low (52973) Billed Units: 1 unit Training AND Education Provided in: Benefits of In-Hospital Mobility, Role of Physical Therapy The Following Therapeutic Skills Were Used: Movement Facilitation Skilled Treatment Time (minutes): 15 Please see discipline specific clinical documentation flowsheet for complete details for this therapy evaluation/treatment. SIGNATURE: Mónica Hughes PT PATIENT NAME: Franklin Burton DATE: March 04, 2023 TIME: 12:06 PM Normal [facility] CBC W Auto Differential pane l (Bld)on 03-03-2023 Basophils (Bld) [#/Vol] 0.04 10*3/uL Normal <0.11 [facility] Comment on above: Order Comment: Speci men Type: BLOOD SPECIMEN Ordering Facility: [facility] Address: [address] [place] [address] Performed By: #### 5 7021-8 #### [facility] CLIA [id number] [address] [place] [address] [place] Basophils/100 WBC (Bld) 0.6 % Normal [facility] Comment on above: Order Comment: Speci men Type: BLOOD SPECIMEN Ordering Facility: [facility] Address: [address] [place] [address] Performed By: #### 5 7021-8 #### [facility] CLIA [id number] [address] [place] [address] [place] Differential cell count method Nom (Bld) Auto Normal [facility] Comment on above: Order Comment: Speci men Type: BLOOD SPECIMEN Ordering Facility: [facility] Address: [address] [place] [address] Performed By: #### 5 7021-8 #### [facility] CLIA [id number] [address] [place] [address] [place] Eosinophils (Bld) [#/Vol] 0.27 10*3/uL Normal <0.46 [facility] Comment on above: Order Comment: Speci men Type: BLOOD SPECIMEN Ordering Facility: [facility] Address: [address] [place] [address] Performed By: #### 5 7021-8 #### [facility] CLIA [id number] [address] [place] Eosinophils/100 WBC (Bld) 4.2 % Normal [facility] Comment on above: Order Comment: Speci men Type: BLOOD SPECIMEN Ordering Facility: [facility] Address: [address] [place] [address] Performed By: #### 5 7021-8 #### [facility] CLIA [id number] [address] [place] Erythrocyte distribution width (RBC) [Ratio] 13.4 % Normal 11.5-15.0 [facility] Comment on above: Order Comment: Speci men Type: BLOOD SPECIMEN Ordering Facility: [facility] Address: [address] [place] [address] Performed By: #### 5 7021-8 #### [facility] CLIA [id number] [address] [place] Hematocrit (Bld) [Volume fraction] 33.4 % Low 39.0-51.0 [facility] Comment on above: Order Comment: Speci men Type: BLOOD SPECIMEN Ordering Facility: [facility] Address: [address] [place] [address] Performed By: #### 5 7021-8 #### [facility] CLIA [id number] [address] [place] Hemoglobin (Bld) [Mass/Vol] 11.0 g/dL Low 13.0-17.0 [facility] Comment on above: Order Comment: Speci men Type: BLOOD SPECIMEN Ordering Facility: [facility] Address: [address] [place] [address] Performed By: #### 5 7021-8 #### [facility] CLIA [id number] [address] [place] Immature granulocytes (Bld) [#/Vol] 0.07 10*3/uL Normal <0.10 [facility] Comment on above: Order Comment: Speci men Type: BLOOD SPECIMEN Ordering Facility: [facility] Address: [address] [place] [address] Performed By: #### 5 7021-8 #### [facility] CLIA [id number] [address] Immature granulocytes/100 WBC (Bld) 1.1 % Normal [facility] Comment on above: Order Comment: Speci men Type: BLOOD SPECIMEN Ordering Facility: [facility] Address: [address] [place] [address] Performed By: #### 5 7021-8 #### [facility] CLIA [id number] [address] [place] Lymphocytes (Bld) [#/Vol] 0.54 10*3/uL Low 1.00-4.00 [facility] Comment on above: Order Comment: Speci men Type: BLOOD SPECIMEN Ordering Facility: [facility] Address: [address] [place] [address] Performed By: #### 5 7021-8 #### [facility] CLIA [id number] [address] Lymphocytes/100 WBC (Bld) 8.4 % Normal [facility] Comment on above: Order Comment: Speci men Type: BLOOD SPECIMEN Ordering Facility: [facility] Address: [address] [place] [address] Performed By: #### 5 7021-8 #### [facility] CLIA [id number] [address] MCH (RBC) [Entitic mass] 31.3 pg Normal 26.0-34.0 [facility] Comment on above: Order Comment: Speci men Type: BLOOD SPECIMEN Ordering Facility: [facility] Address: [address] [place] [address] Performed By: #### 5 7021-8 #### [facility] CLIA [id number] [address] MCHC (RBC) [Mass/Vol] 32.9 g/dL Normal 30.5-36.0 [facility] Comment on above: Order Comment: Speci men Type: BLOOD SPECIMEN Ordering Facility: [facility] Address: [address] [place] [address] Performed By: #### 5 7021-8 #### [facility] CLIA [id number] [address] [place] MCV (RBC) [Entitic vol] 95.2 fL Normal 80.0-100.0 [facility] Comment on above: Order Comment: Speci men Type: BLOOD SPECIMEN Ordering Facility: [facility] Address: [address] [place] [address] Performed By: #### 5 7021-8 #### [facility] CLIA [id number] [address] [place] Monocytes (Bld) [#/Vol] 0.61 10*3/uL Normal <0.87 [facility] Comment on above: Order Comment: Speci men Type: BLOOD SPECIMEN Ordering Facility: [facility] Address: [address] [place] [address] Performed By: #### 5 7021-8 #### [facility] CLIA [id number] [address] Monocytes/100 WBC (Bld) 9.5 % Normal [facility] Comment on above: Order Comment: Speci men Type: BLOOD SPECIMEN Ordering Facility: [facility] Address: [address] [place] [address] Performed By: #### 5 7021-8 #### [facility] CLIA [id number] [address] [place] Neutrophils (Bld) [#/Vol] 4.91 10*3/uL Normal 1.45-7.50 [facility] Comment on above: Order Comment: Speci men Type: BLOOD SPECIMEN Ordering Facility: [facility] Address: [address] [place] [address] Performed By: #### 5 7021-8 #### [facility] CLIA [id number] [address] Neutrophils/100 WBC (Bld) 76.2 % Normal [facility] Comment on above: Order Comment: Speci men Type: BLOOD SPECIMEN Ordering Facility: [facility] Address: [address] [place] [address] Performed By: #### 5 7021-8 #### [facility] CLIA [id number] [address] [place] Nucleated RBC (Bld) [#/Vol] 10*3/uL Normal <0.01 [facility] Comment on above: Order Comment: Speci men Type: BLOOD SPECIMEN Ordering Facility: [facility] Address: [address] [place] [address] Performed By: #### 5 7021-8 #### [facility] CLIA [id number] [address] Nucleated RBC/100 WBC (Bld) [Ratio] 0.0 /100 WBC Normal [facility] Comment on above: Order Comment: Speci men Type: BLOOD SPECIMEN Ordering Facility: [facility] Address: [address] [place] [address] Performed By: #### 5 7021-8 #### [facility] CLIA [id number] [address] Platelet mean volume (Bld) [Entitic vol] 9.6 fL Normal 9.0-12.7 [facility] Comment on above: Order Comment: Speci men Type: BLOOD SPECIMEN Ordering Facility: [facility] Address: [address] [place] [address] Performed By: #### 5 7021-8 #### [facility] CLIA [id number] [address] [place] Platelets (Bld) [#/Vol] 140 10*3/uL Low 150-400 [facility] Comment on above: Order Comment: Speci men Type: BLOOD SPECIMEN Ordering Facility: [facility] Address: [address] [place] [address] Performed By: #### 5 7021-8 #### [facility] CLIA [id number] [address] [place] [address] [place] RBC (Bld) [#/Vol] 3.51 10*6/uL Low 4.20-6.00 [facility] Comment on above: Order Comment: Speci men Type: BLOOD SPECIMEN Ordering Facility: [facility] Address: [address] [place] [address] Performed By: #### 5 7021-8 #### [facility] CLIA [id number] [address] [place] WBC (Bld) [#/Vol] 6.44 10*3/uL Normal 3.70-11.00 [facility] Comment on above: Order Comment: Speci men Type: BLOOD SPECIMEN Ordering Facility: [facility] Address: [address] [place] [address] Performed By: #### 5 7021-8 #### [facility] CLIA [id number] [address] CONSULTon 03-03-2023 CONSULT HNO ID: [id number] Author: January Hunter MD Service: Infectious Disease [...] SUBJECTIVE: HPI: 77 year old male , Frank male on PD since December 31, 2022 when he had his first catheter put in (hemodialysis with left arm AV fistula since July 2022), history of Zach's granulomatosis that he states no longer on medications for but in 2013 had some chemotherapy and other medications that he cannot remember-H CART PUSHER list this is in remission, still has bad sinuses plus the kidney failure but not sure about lung disease, presented to [facility] 02/28/2023 for transfer from [facility] where he had been for about 3 days after about 10 to 14 days of progressive abdominal pain and inability to do peritoneal dialysis due to pain exacerbation with such. Transferred here with PD associated peritonitis and catheter infection. Patient cannot remember antibiotics at [place] but currently on cefepime and recently had vancomycin which may have done a phlebitis with pain and itching of the right forearm from an IV site that is now removed as of 03/02, and states some improvement in peritonitis pain. Some of the history is per his and daughter whom he gives permission to be in the room and later his son and [id number]. Patient states he is feeling better and that he has very lower abdominal pain but not as severe and not as much. Had a fever and chills since he has been here and felt worse and weak when he first went in the [place]. He is now back on dialysis. Denies antibiotic issues, shortness of breath, cardiac complaints. Per pharmacy note on February 28 patient must of started on vancomycin February 27 Patient had fluid aspirate sent at [facility] but apparently they cannot draw back on the catheter here nor flush. Apparently he initially came over on vancomycin and ceftriaxone. No antibiotic allergies Active Antimicrobials (From admission, onward) Start Stop 03/03/23 1300 sulfamethoxazole-trime thoprim 800-160 mg 0.5 tablet (BACTRIM DS) 0.5 tablet, ORAL, EVERY MON-WED-FRI -- 03/02/23 0730 cefepime 1 g in [...] INTRAVENOUS q12 (more content not included)... Normal [facility] CONSULT PROGon 03-03-2023 CONSULT PROG HNO ID: [id number] Author: Maurice Kiran MD Service: Nephrology Author Type: Physician Type: Consult Progress Note Filed: 03/03/2023 6:26 PM Note Text: Medical Intensive Care Consult Note / HANDP March 03, 2023 Patient Name: Franklin Burton Patient Location: [id number]* Admission Date: 02/28/2023 Length of Stay: 2 History of present illness: This is a 77-year-old male who was seen by nephrology consultation for peritoneal dialysis, resulting peritonitis. Patient is 77-year-old male history of ESRD due to GPA, GERD, hypertension, type 2 diabetes mellitus, who is presenting from [place] for what seems to be peritonitis due to PD catheter. Patient has a left arm fistula in place, and reportedly he received hemodialysis but was took. He is also scheduled to receive hemodialysis today. Per records from [place], cultures of the PD catheter showed stenotrophomis [...] daily before breakfast. 1/2 hr before meal.) oxyCODONE-acetaminophe n (PERCOCET) 5-325 mg tablet TAKE 1 TABLET [...] He is alert. Labs: CBC: Recent Labs 03/03/2345203/01/23945 WBC 6.44 7.12 HB 11.0* 10.6* HCT 33.4* 32.3* PLT 140* 118* MCV 95.2 95.3 RDWCV 13.4 14.0 NEUTP 76.2 83.3 ABSNEUT 4.91 5.93 LYMPHP 8.4 7.4 MONOP 9.5 4.8 COAG: No results for input(s): APTT, INR in the last 168 hours. BMP: Recent Labs 03/03/2345203/02/2325503/01/2346 GLUC 100* 127* 154* NA 134* 131* 134* K 4.7 4.5 4.2 CHLOR 102 101 103 CO2 22 22 22 ANION 10 8* 9 BUN 28* 26* 22 CREAT 2.82* 2.94* 2.71* 2.71* CHEM: Recent Labs 03/03/2345203/02/2325503/01/2346 ALB 3.3* 3.1* 3.1* TPROT -- -- 5.3* CA 9.0 8.7 8.7 HEPATIC: Recent Labs 03/01/23945 ALKPHOS 125* ALT 14 AST 19 TBILI 0.4 URINALYSIS:No results for input(s): PH, SPGR, UGLUC, UBILI, UKET, UHB, UPROT, UROBIL, UWBC, SSA in the last 168 hours. Invalid input(s): NITR CARDIAC: No results for input(s): CKTEST, CKMB, CKMBP in the last 168 hours.TROPONIN@:8,No results found for: BNP:8)@ Assessment/Plan Assessment/Plan: ESRD on PD, now requiring HD with currently fistula Scheduled for HD today F/u ID recc's on antibiotics May need PD catheter replacement Will continue to follow Signed: Constantin Fernandez MD, PGY-3 Pager: [phone] Date: March 03, 2023 Time: 2:40 PM Recommendations are not finalized until co-signed by Staff physician. JACINDA (more content not included)... Normal [facility] CONSULT PROG HNO ID: [id number] Author: Talia Amador RPh Service: Pharmacy Author [...] contact pharmacy if there are questions. Talia Amador RPh [facility] HBV surface Ag Ser Qlon 02-16 HBV surface Ag Ql (S) Non-Reactive Normal Nonreactive [facility] Comment on above: Order Comment: Camilo redman Type: BLOOD SPECIMEN Ordering Facility: [facility] Address: [address] [place] [address] Performed By: #### 5 195-3 #### [facility] CLIA [id number] [address] [place] [address] [place] Renal function 2000 panelon 03-03-2023 Albumin [Mass/Vol] 3.3 g/dL Low 3.9-4.9 [facility] Comment on above: Order Comment: Camilo redman Type: BLOOD SPECIMEN Ordering Facility: [facility] Address: [address] [place] [address] Performed By: #### 2 4362-6 #### [facility] CLIA [id number] [address] [place] Anion gap [Moles/Vol] 10 mmol/L Normal 9-18 [facility] Comment on above: Order Comment: Speci men Type: BLOOD SPECIMEN Ordering Facility: [facility] Address: [address] [place] [address] Performed By: #### 2 4362-6 #### [facility] CLIA [id number] [address] [place] [address] [place] Calcium [Mass/Vol] 9.0 mg/dL Normal 8.5-10.2 [facility] Comment on above: Order Comment: Speci men Type: BLOOD SPECIMEN Ordering Facility: [facility] Address: [address] [place] [address] Performed By: #### 2 4362-6 #### [facility] CLIA [id number] [address] [place] Chloride [Moles/Vol] 102 mmol/L Normal 97-105 [facility] Comment on above: Order Comment: Speci men Type: BLOOD SPECIMEN Ordering Facility: [facility] Address: [address] [place] [address] Performed By: #### 2 4362-6 #### [facility] CLIA [id number] [address] [place] [address] [place] CO2 [Moles/Vol] 22 mmol/L Normal 22-30 [facility] Comment on above: Order Comment: Speci men Type: BLOOD SPECIMEN Ordering Facility: [facility] Address: [address] [place] [address] Performed By: #### 2 4362-6 #### [facility] CLIA [id number] [address] [place] [address] [place] Creatinine [Mass/Vol] 2.82 mg/dL High 0.73-1.22 [facility] Comment on above: Order Comment: Speci men Type: BLOOD SPECIMEN Ordering Facility: [facility] Address: [address] [place] [address] Performed By: #### 2 4362-6 #### [facility] CLIA [id number] [address] [place] [address] [place] Creatinine and Glomerular filtration rate.predicted panel (S/P/Bld) 22 mL/min/1.73m??? Low >=60 [facility] Comment on above: Order Comment: Camilo redman Type: BLOOD SPECIMEN Ordering Facility: [facility] Address: [address] [place] [address] Result Comment: Zoë mated Glomerular Filtration Rate [...] GFR. Performed By: #### 2 4362-6 #### [facility] CLIA [id number] [address] [place] [address] [place] Glucose [Mass/Vol] 100 mg/dL High 74-99 [facility] Comment on above: Order Comment: Camilo redman Type: BLOOD SPECIMEN Ordering Facility: [facility] Address: [address] [place] [address] Result Comment: The [place] [employer] (ADA) provides guidance for cutoff [...] Standards of Medical Care in Diabetes 2016, [place] [employer]. Diabetes Care. 2016.39(Suppl 1). Performed By: #### 2 4362-6 #### [facility] CLIA [id number] [address] [place] [address] [place] Phosphate [Mass/Vol] 2.3 mg/dL Low 2.7-4.8 [facility] Comment on above: Order Comment: Speci men Type: BLOOD SPECIMEN Ordering Facility: [facility] Address: [address] [place] [address] Performed By: #### 2 4362-6 #### [facility] CLIA [id number] [address] Potassium [Moles/Vol] 4.7 mmol/L Normal 3.7-5.1 [facility] Comment on above: Order Comment: Speci men Type: BLOOD SPECIMEN Ordering Facility: [facility] Address: [address] [place] [address] Performed By: #### 2 4362-6 #### [facility] CLIA [id number] [address] [facility] Sodium [Moles/Vol] 134 mmol/L Low 136-144 [facility] Comment on above: Order Comment: Speci men Type: BLOOD SPECIMEN Ordering Facility: [facility] Address: [address] [place] [address] Performed By: #### 2 4362-6 #### [facility] CLIA [id number] [address] [facility] Urea nitrogen [Mass/Vol] 28 mg/dL High 9-24 [facility] Comment on above: Order Comment: Speci men Type: BLOOD SPECIMEN Ordering Facility: [facility] Address: [address] [place] [address] Performed By: #### 2 4362-6 #### [facility] CLIA [id number] [address] [facility] THERAPY NTon 03-03-2023 THERAPY NT HNO ID: [id number] Author: Mónica Hughes PT Service: Physical Therapy Author Type: Physical Therapist Type: Therapy (PT/OT/Speech/Resp) Filed: 03/03/2023 1:41 PM Note Text: PHYSICAL THERAPY MISSED VISIT SERVICE DATE: 03/03/2023 SERVICE TIME: 1339 to 1339 ROOM: [place] [address] ([facility]) Patient not seen due to Test / Procedure (at ). SIGNATURE: Mónica Hughes PT PATIENT NAME: Franklin Burton DATE: March 03, 2023 TIME: 1:40 PM Normal [facility] Vancomycin random [Mass/Vol] on 03-03-2023 Vancomycin [Mass/Vol] 15.8 ug/mL Normal 10.0-20.0 [facility] Comment on above: Order Comment: Speci men Type: BLOOD SPECIMEN Ordering Facility: [facility] Address: [address] [place] [address] Result Comment: Refe rence ranges and high/low indicator flags are provided as general guidelines only. The treating physician must determine appropriate target levels/dosing based on the specific clinical situation. Performed By: #### 2 4362-6 #### [facility] CLIA [id number] [address] [facility] Bacteria Bld Culton 03-02-20 23 Bacteria identified Cx Nom (Bld) CULTURE, BLOOD: No growth 5 days Normal [facility] Comment on above: Performed By: #### 6 00-7 #### [facility] CLIA [id number] [address] [place] Bacteria identified Cx Nom (Bld) CULTURE, BLOOD: No growth 5 days Normal [facility] Comment on above: Performed By: #### 6 00-7 #### [facility] CLIA [id number] [address] [place] CONSULT PROGon 03-02-2023 CONSULT PROG HNO ID: [id number] Author: Coty Sheppard RPh Service: Pharmacy Author [...] indication Empiric Pharmacist may modify dose per [facility] dose optimization consult agreement Yes 03/02/23 0711 [...] 9:46 AM SCr 2.94 2.71 2.71 eGFR Comment for eGFR at 2:56 AM on [...] Readings: Date: Ht: 02/28/2023 172.7 cm (5' 8) Temp (24hrs), Av.8 ?C (100.1 ?F), Min:36.6 ?C (97.9 ?F), Max:39.3 ?C (102.7 ?F) - Current Temp: 36.6 ?C (97.9 ?F) Coty Sheppard [facility] ED March 02, 2023 7:19 AM Normal [facility] Renal function 2000 panelon 03-02-2023 Albumin [Mass/Vol] 3.1 g/dL Low 3.9-4.9 [facility] Comment on above: Order Comment: Speci feroz Type: BLOOD SPECIMEN Ordering Facility: [facility] Address: [address] [place] [address] Performed By: #### 2 4362-6 #### [facility] CLIA [id number] [address] [facility] Anion gap [Moles/Vol] 8 mmol/L Low 9-18 [facility] Comment on above: Order Comment: Speci men Type: BLOOD SPECIMEN Ordering Facility: [facility] Address: [address] [place] [address] Performed By: #### 2 4362-6 #### [facility] CLIA [id number] [address] [place] Calcium [Mass/Vol] 8.7 mg/dL Normal 8.5-10.2 [facility] Comment on above: Order Comment: Speci men Type: BLOOD SPECIMEN Ordering Facility: [facility] Address: [address] [place] [address] Performed By: #### 2 4362-6 #### [facility] CLIA [id number] [address] [facility] Chloride [Moles/Vol] 101 mmol/L Normal 97-105 [facility] Comment on above: Order Comment: Speci men Type: BLOOD SPECIMEN Ordering Facility: [facility] Address: [address] [place] [address] Performed By: #### 2 4362-6 #### [facility] CLIA [id number] [address] [place] CO2 [Moles/Vol] 22 mmol/L Normal 22-30 [facility] Comment on above: Order Comment: Speci men Type: BLOOD SPECIMEN Ordering Facility: [facility] Address: [address] [place] [address] Performed By: #### 2 4362-6 #### [facility] CLIA [id number] [address] [place] Creatinine [Mass/Vol] 2.94 mg/dL High 0.73-1.22 [facility] Comment on above: Order Comment: Speci men Type: BLOOD SPECIMEN Ordering Facility: [facility] Address: [address] [place] [address] Performed By: #### 2 4362-6 #### [facility] CLIA [id number] [address] Creatinine and Glomerular filtration rate.predicted panel (S/P/Bld) 21 mL/min/1.73m??? Low >=60 [facility] Comment on above: Order Comment: Speci men Type: BLOOD SPECIMEN Ordering Facility: [facility] Address: [address] [place] [address] Result Comment: Zoë mated Glomerular Filtration Rate [...] GFR. Performed By: #### 2 4362-6 #### [facility] CLIA [id number] 1 [place] [address] [place] Glucose [Mass/Vol] 127 mg/dL High 74-99 [facility] Comment on above: Order Comment: Camilo redman Type: BLOOD SPECIMEN Ordering Facility: [facility] Address: [address] [place] [address] Result Comment: The [place] [employer] (ADA) provides guidance for cutoff [...] Standards of Medical Care in Diabetes 2016, [place] [employer]. Diabetes Care. 2016.39(Suppl 1). Performed By: #### 2 4362-6 #### [facility] CLIA [id number] 1 [place] [address] [place] Phosphate [Mass/Vol] 2.6 mg/dL Low 2.7-4.8 [facility] Comment on above: Order Comment: Camilo redman Type: BLOOD SPECIMEN Ordering Facility: [facility] Address: [address] [place] [address] Performed By: #### 2 4362-6 #### [facility] CLIA [id number] 1 [place] [address] [place] Potassium [Moles/Vol] 4.5 mmol/L Normal 3.7-5.1 [facility] Comment on above: Order Comment: Camilo redman Type: BLOOD SPECIMEN Ordering Facility: [facility] Address: [address] [place] [address] Performed By: #### 2 4362-6 #### [facility] CLIA [id number] [address] [place] Sodium [Moles/Vol] 131 mmol/L Low 136-144 [facility] Comment on above: Order Comment: Speci men Type: BLOOD SPECIMEN Ordering Facility: [facility] Address: [address] [place] [address] Performed By: #### 2 4362-6 #### [facility] CLIA [id number] [address] [facility] Urea nitrogen [Mass/Vol] 26 mg/dL High 9-24 [facility] Comment on above: Order Comment: Speci men Type: BLOOD SPECIMEN Ordering Facility: [facility] Address: [address] [place] [address] Performed By: #### 2 4362-6 #### [facility] CLIA [id number] [address] CBC W Auto Differential pane l (Bld)on 03-01-2023 Basophils (Bld) [#/Vol] 10*3/uL Normal <0.11 [facility] Comment on above: Order Comment: Speci men Type: BLOOD SPECIMEN Ordering Facility: [facility] Address: [address] [place] [address] Performed By: #### 5 7021-8 #### [facility] CLIA [id number] [address] Basophils/100 WBC (Bld) 0.3 % Normal [facility] Comment on above: Order Comment: Speci men Type: BLOOD SPECIMEN Ordering Facility: [facility] Address: [address] [place] [address] Performed By: #### 5 7021-8 #### [facility] CLIA [id number] [address] Differential cell count method Nom (Bld) Auto Normal [facility] Comment on above: Order Comment: Speci men Type: BLOOD SPECIMEN Ordering Facility: [facility] Address: [address] [place] [address] Performed By: #### 5 7021-8 #### [facility] CLIA [id number] [address] [place] Eosinophils (Bld) [#/Vol] 0.25 10*3/uL Normal <0.46 [facility] Comment on above: Order Comment: Speci men Type: BLOOD SPECIMEN Ordering Facility: [facility] Address: [address] [place] [address] Performed By: #### 5 7021-8 #### [facility] CLIA [id number] [address] [place] Eosinophils/100 WBC (Bld) 3.5 % Normal [facility] Comment on above: Order Comment: Speci men Type: BLOOD SPECIMEN Ordering Facility: [facility] Address: [address] [place] [address] Performed By: #### 5 7021-8 #### [facility] CLIA [id number] [address] Erythrocyte distribution width (RBC) [Ratio] 14.0 % Normal 11.5-15.0 [facility] Comment on above: Order Comment: Speci men Type: BLOOD SPECIMEN Ordering Facility: [facility] Address: [address] [place] [address] Performed By: #### 5 7021-8 #### [facility] CLIA [id number] [address] [place] Hematocrit (Bld) [Volume fraction] 32.3 % Low 39.0-51.0 [facility] Comment on above: Order Comment: Speci men Type: BLOOD SPECIMEN Ordering Facility: [facility] Address: [address] [place] [address] Performed By: #### 5 7021-8 #### [facility] CLIA [id number] [address] Hemoglobin (Bld) [Mass/Vol] 10.6 g/dL Low 13.0-17.0 [facility] Comment on above: Order Comment: Speci men Type: BLOOD SPECIMEN Ordering Facility: [facility] Address: [address] [place] [address] Performed By: #### 5 7021-8 #### [facility] CLIA [id number] [address] [place] Immature granulocytes (Bld) [#/Vol] 0.05 10*3/uL Normal <0.10 [facility] Comment on above: Order Comment: Speci men Type: BLOOD SPECIMEN Ordering Facility: [facility] Address: [address] [place] [address] Performed By: #### 5 7021-8 #### [facility] CLIA [id number] [address] Immature granulocytes/100 WBC (Bld) 0.7 % Normal [facility] Comment on above: Order Comment: Speci men Type: BLOOD SPECIMEN Ordering Facility: [facility] Address: [address] [place] [address] Performed By: #### 5 7021-8 #### [facility] CLIA [id number] [address] [place] Lymphocytes (Bld) [#/Vol] 0.53 10*3/uL Low 1.00-4.00 [facility] Comment on above: Order Comment: Speci men Type: BLOOD SPECIMEN Ordering Facility: [facility] Address: [address] [place] [address] Performed By: #### 5 7021-8 #### [facility] CLIA [id number] [address] Lymphocytes/100 WBC (Bld) 7.4 % Normal [facility] Comment on above: Order Comment: Speci men Type: BLOOD SPECIMEN Ordering Facility: [facility] Address: [address] [place] [address] Performed By: #### 5 7021-8 #### [facility] CLIA [id number] [address] [place] MCH (RBC) [Entitic mass] 31.3 pg Normal 26.0-34.0 [facility] Comment on above: Order Comment: Speci men Type: BLOOD SPECIMEN Ordering Facility: [facility] Address: [address] [place] [address] Performed By: #### 5 7021-8 #### [facility] CLIA [id number] [address] MCHC (RBC) [Mass/Vol] 32.8 g/dL Normal 30.5-36.0 [facility] Comment on above: Order Comment: Speci men Type: BLOOD SPECIMEN Ordering Facility: [facility] Address: [address] [place] [address] Performed By: #### 5 7021-8 #### [facility] CLIA [id number] [address] MCV (RBC) [Entitic vol] 95.3 fL Normal 80.0-100.0 [facility] Comment on above: Order Comment: Speci men Type: BLOOD SPECIMEN Ordering Facility: [facility] Address: [address] [place] [address] Performed By: #### 5 7021-8 #### [facility] CLIA [id number] [address] [place] Monocytes (Bld) [#/Vol] 0.34 10*3/uL Normal <0.87 [facility] Comment on above: Order Comment: Speci men Type: BLOOD SPECIMEN Ordering Facility: [facility] Address: [address] [place] [address] Performed By: #### 5 7021-8 #### [facility] CLIA [id number] [address] Monocytes/100 WBC (Bld) 4.8 % Normal [facility] Comment on above: Order Comment: Speci men Type: BLOOD SPECIMEN Ordering Facility: [facility] Address: [address] [place] [address] Performed By: #### 5 7021-8 #### [facility] CLIA [id number] [address] [place] Neutrophils (Bld) [#/Vol] 5.93 10*3/uL Normal 1.45-7.50 [facility] Comment on above: Order Comment: Speci men Type: BLOOD SPECIMEN Ordering Facility: [facility] Address: [address] [place] [address] Performed By: #### 5 7021-8 #### [facility] CLIA [id number] [address] Neutrophils/100 WBC (Bld) 83.3 % Normal [facility] Comment on above: Order Comment: Speci men Type: BLOOD SPECIMEN Ordering Facility: [facility] Address: [address] [place] [address] Performed By: #### 5 7021-8 #### [facility] CLIA [id number] [address] Nucleated RBC (Bld) [#/Vol] 10*3/uL Normal <0.01 [facility] Comment on above: Order Comment: Speci men Type: BLOOD SPECIMEN Ordering Facility: [facility] Address: [address] [place] [address] Performed By: #### 5 7021-8 #### [facility] CLIA [id number] [address] Nucleated RBC/100 WBC (Bld) [Ratio] 0.0 /100 WBC Normal [facility] Comment on above: Order Comment: Speci men Type: BLOOD SPECIMEN Ordering Facility: [facility] Address: [address] [place] [address] Performed By: #### 5 7021-8 #### [facility] CLIA [id number] [address] [place] Platelet mean volume (Bld) [Entitic vol] 9.1 fL Normal 9.0-12.7 [facility] Comment on above: Order Comment: Speci men Type: BLOOD SPECIMEN Ordering Facility: [facility] Address: [address] [place] [address] Performed By: #### 5 7021-8 #### [facility] CLIA [id number] [address] [place] [address] [place] Platelets (Bld) [#/Vol] 118 10*3/uL Low 150-400 [facility] Comment on above: Order Comment: Speci men Type: BLOOD SPECIMEN Ordering Facility: [facility] Address: [address] [place] [address] Performed By: #### 5 7021-8 #### [facility] CLIA [id number] [address] [place] [address] [place] RBC (Bld) [#/Vol] 3.39 10*6/uL Low 4.20-6.00 [facility] Comment on above: Order Comment: Speci men Type: BLOOD SPECIMEN Ordering Facility: [facility] Address: [address] [place] [address] Performed By: #### 5 7021-8 #### [facility] CLIA [id number] [address] [place] WBC (Bld) [#/Vol] 7.12 10*3/uL Normal 3.70-11.00 [facility] Comment on above: Order Comment: Speci men Type: BLOOD SPECIMEN Ordering Facility: [facility] Address: [address] [place] [address] Performed By: #### 5 7021-8 #### [facility] CLIA [id number] [address] [place] CONSULTon 03-01-2023 CONSULT HNO ID: [id number] Author: Aleyda Wright MD Service: Nephrology Author Type: Physician Type: Consults Filed: 03/01/2023 11:01 AM Note Text: [facility] ([facility]) Nephrology Consult HANDP March 01, 2023 10:47 AM Patient: Franklin Burton [id number]* Date of Admit: 02/28/2023 LOS: 0 Referring physician: Chidi Raines MD Outpatient Motor Polarizer: Tara Reason for Consult Peritonitis Chief complaint: abdominal pain Assessment AND Plan Franklin Burton is a 77 year old male with a past medical history of ESRD on PD, GPA, DM type 2, HTN, HFrEF, BPH, GERD, ROYAL, OA, obesity, RLS, who was transferred from [place] with peritonitis. Recommendations: 1.ESRD on PD: -per [...] tentative plan for HD on Friday. 2. Electrolytes/acid-base : last Na was 134, K 4.2, bicarb [...] with any questions Signed: Aleyda Martinez MD [facility] ([facility]) Personal Pager: [phone] Office Number: [phone] Office March 01, 2023 10:47 AM History of Present Illness Franklin Burton is a 77 year old male with a past medical history of ESRD on PD, GPA, DM type 2, HTN, HFrEF, BPH, GERD, ROYAL, OA, obesity, RLS, who was transferred from [place] with peritonitis. Per patient, he was previously on HD since July 2022 and was transitioned to PD about 1 month ago. This last Friday he noticed it was painful when he started PD. He reports he was then found to he floor on famiy, and he didn't know how he got there. He reports he was started on treatment for presumptive peritonitis. Per survey supervisor, PD cell counts and culture were not [...] lb 11.2 oz) Height: 172.7 cm (5' 8) BP 126/77 Pulse 106 Temp 37.1 ?C (98.8 ?F) (Oral) Resp 18 Ht 172.7 cm (5' 8) Wt 96.5 kg (212 lb 11.2 oz (more content not included)... Normal [facility] CONSULT PROGon 03-01-2023 CONSULT PROG HNO ID: [id number] Author: Beau Day RPh Service: Pharmacy Author [...] have any questions, [place] [phone]. Age: [age] year old Allergies: ALLERGIES Allergen Reactions Aspirin Other: See Comments Kidney issues Seasonal Allergies Other: See Comments Sneezing, itchy and watery eyes Last 3 Encounter Wt Readings: Date: Wt: 02/28/2023 96.5 kg (212 lb 11.2 oz) 12/01/2022 96.6 kg (213 lb) 12/03/2013 88 kg (194 lb) Last 1 Encounter Ht Readings: Date: Ht: 02/28/2023 172.7 cm (5' 8) Peritoneal hemodialysis Temp (24hrs), Av.9 ?C (98.5 [...] Value 03/01/2023 0946 8.8 (L) Beau Day [facility] Normal [facility] CONSULT PROG HNO ID: [id number] Author: Alyssa Esposito [facility] Service: Pharmacy Author Type: Pharmacist Type: Consult [...] therapy. The patient is a transfer from [facility] where chart documentation states patient was started on vancomycin 02/27/2023. (Confirmed the patient received a dose of vancomycin 1.5 grams IV x ONCE 02/27/2023 @ 1132 in [place].) 2. No vancomycin level has been drawn [...] have any questions, [place] [phone]. Age: [age] year old Allergies: ALLERGIES Allergen Reactions Aspirin Other: See Comments Kidney issues Seasonal Allergies Other: See Comments Sneezing, itchy and watery eyes Last 3 Encounter Wt Readings: Date: Wt: 02/28/2023 96.5 kg (212 lb 11.2 oz) 12/01/2022 96.6 kg (213 lb) 12/03/2013 88 kg (194 lb) Last 1 Encounter Ht Readings: Date: Ht: 02/28/2023 172.7 cm (5' 8) Peritoneal hemodialysis Temp (24hrs), Av.7 ?C (98.1 ?F), Min:36.7 ?C (98.1 ?F), Max:36.7 ?C (98.1 ?F) - Current Temp: 36.7 ?C (98.1 ?F) Labs BUN (mg/dL) Date Value 06/03/2014 63 (H) 12/28/2012 12 Creatinine (mg/dL) Date Value 06/03/2014 2.88 (H) 06/03/2014 36.54 (H) 12/28/2012 0.95 WBC (k/uL) Date Value 12/28/2012 9.76 Vancomycin Levels: No results found for: JOSH Esposito, Pharm.D., [facility] Normal [facility] CREATININE BLDon 03-01-2023 Creatinine [Mass/Vol] 2.71 mg/dL High 0.73-1.22 [facility] Comment on above: Order Comment: Camilo redman Type: BLOOD SPECIMEN Ordering Facility: [facility] Address: [address] [place] [address] Performed By: #### 5 7021-8 #### [facility] CLIA [id number] [address] [place] [address] [place] [facility] Creatinine and Glomerular filtration rate.predicted panel (S/P/Bld) 24 mL/min/1.73m??? Low >=60 [facility] Comment on above: Order Comment: Camilo redman Type: BLOOD SPECIMEN Ordering Facility: [facility] Address: [address] [place] [address] Result Comment: Zoë mated Glomerular Filtration Rate [...] GFR. Performed By: #### 5 7021-8 #### [facility] CLIA [id number] [address] [place] [address] Result Comment: Zoë mated Glomerular Filtration Rate [...] 03-01-2023 Albumin [Mass/Vol] 3.1 g/dL Low 3.9-4.9 [facility] Comment on above: Order Comment: Camilo redman Type: BLOOD SPECIMEN Ordering Facility: [facility] Address: [address] [place] [address] Performed By: #### 5 7021-8 #### [facility] CLIA [id number] [address] ALP [Catalytic activity/Vol] 125 U/L High 38-113 [facility] Comment on above: Order Comment: Camilo redman Type: BLOOD SPECIMEN Ordering Facility: [facility] Address: [address] [place] [address] Performed By: #### 5 7021-8 #### [facility] CLIA [id number] [address] [place] [address] ALT With P-5'-P [Catalytic activity/Vol] 14 U/L Normal 10-54 [facility] Comment on above: Order Comment: Speci men Type: BLOOD SPECIMEN Ordering Facility: [facility] Address: [address] [place] [address] Performed By: #### 5 7021-8 #### [facility] CLIA [id number] [address] Anion gap [Moles/Vol] 9 mmol/L Normal 9-18 [facility] Comment on above: Order Comment: Speci men Type: BLOOD SPECIMEN Ordering Facility: [facility] Address: [address] [place] [address] Performed By: #### 5 7021-8 #### [facility] CLIA [id number] [address] AST With P-5'-P [Catalytic activity/Vol] 19 U/L Normal 14-40 [facility] Comment on above: Order Comment: Speci men Type: BLOOD SPECIMEN Ordering Facility: [facility] Address: [address] [place] [address] Performed By: #### 5 7021-8 #### [facility] CLIA [id number] [address] [place] Bilirubin [Mass/Vol] 0.4 mg/dL Normal 0.2-1.3 [facility] Comment on above: Order Comment: Speci men Type: BLOOD SPECIMEN Ordering Facility: [facility] Address: [address] [place] [address] Performed By: #### 5 7021-8 #### [facility] CLIA [id number] [address] [place] Calcium [Mass/Vol] 8.7 mg/dL Normal 8.5-10.2 [facility] Comment on above: Order Comment: Speci men Type: BLOOD SPECIMEN Ordering Facility: [facility] Address: [address] [place] [address] Performed By: #### 5 7021-8 #### [facility] CLIA [id number] [address] [place] [address] [place] Chloride [Moles/Vol] 103 mmol/L Normal 97-105 [facility] [facility] Comment on above: Order Comment: Speci men Type: BLOOD SPECIMEN Ordering Facility: [facility] Address: [address] [place] [address] Performed By: #### 5 7021-8 #### [facility] CLIA [id number] [address] [place] [address] [place] CO2 [Moles/Vol] 22 mmol/L Normal 22-30 [facility] Comment on above: Order Comment: Speci men Type: BLOOD SPECIMEN Ordering Facility: [facility] Address: [address] [place] [address] Performed By: #### 5 7021-8 #### [facility] CLIA [id number] [address] [place] [address] [place] Glucose [Mass/Vol] 154 mg/dL High 74-99 [facility] Comment on above: Order Comment: Speci men Type: BLOOD SPECIMEN Ordering Facility: [facility] Address: [address] [place] [address] Result Comment: The [place] [employer] (ADA) provides guidance for cutoff [...] Standards of Medical Care in Diabetes 2016, [place] [employer]. Diabetes Care. 2016.39(Suppl 1). Performed By: #### 5 7021-8 #### [facility] CLIA [id number] [address] [place] [address] [place] Potassium [Moles/Vol] 4.2 mmol/L Normal 3.7-5.1 [facility] Comment on above: Order Comment: Speci men Type: BLOOD SPECIMEN Ordering Facility: [facility] Address: [address] [place] [address] Performed By: #### 5 7021-8 #### [facility] CLIA [id number] [address] [place] Protein [Mass/Vol] 5.3 g/dL Low 6.3-8.0 [facility] Comment on above: Order Comment: Speci men Type: BLOOD SPECIMEN Ordering Facility: [facility] Address: [address] [place] [address] Performed By: #### 5 7021-8 #### [facility] CLIA [id number] [address] [facility] Sodium [Moles/Vol] 134 mmol/L Low 136-144 [facility] Comment on above: Order Comment: Speci men Type: BLOOD SPECIMEN Ordering Facility: [facility] Address: [address] [place] [address] Performed By: #### 5 7021-8 #### [facility] CLIA [id number] [address] [place] Urea nitrogen [Mass/Vol] 22 mg/dL Normal 9-24 [facility] Comment on above: Order Comment: Speci men Type: BLOOD SPECIMEN Ordering Facility: [facility] Address: [address] [place] [address] Performed By: #### 5 7021-8 #### [facility] CLIA [id number] [address] [place] HISTORY PHYSICALon HISTORY PHYSICAL HNO ID: [id number] Author: Chidi Raines MD Service: Hospital Medicine Author Type: Physician Type: HANDP Filed: 03/01/2023 2:21 PM Note Text: INTERNAL MEDICINE ADMISSION NOTE HISTORY AND PHYSICAL Patient Name: Franklin Burton Admission Date: 02/28/2023 Date of Evaluation: 03/01/2023 Time of Evaluation: 1417 Subjective CHIEF COMPLAINT: Abdominal pain. HPI: 77 year old male with a [...] (Oral) Resp 18 Ht 172.7 cm (5' 8) Wt 96.5 kg (212 lb 11.2 oz) [...] AANDO DATA: LABORATORY TESTS: CBC: Recent Labs 03/01/2346 WBC 7.12 HB 10.6* PLT 118* MCV 95.3 NEUTP 83.3 ABSNEUT 5.93 LYMPHP 7.4 CHEM: Recent Labs 03/01/23 0946 NA 134* K 4.2 CA 8.7 P 1.9* ANION 9 CHLOR 103 CO2 22 GLUC 154* BUN 22 CREAT 2.71* 2.71* HEPATIC: Recent Labs 03/01/23 0946 ALT 14 AST 19 TBILI 0.4 ALKPHOS 125* ALB 3.1* TPROT 5.3* URINALYSIS:No results for input(s): SPGR, UBACTERIA, LEUKEST, SSA, UWBC, URBC, UHB, UPROT, UGLUC, UKET in the last 168 hours. Invalid input(s): NITR COAG: No results for input(s): APTT, INR in the last 168 hours. CARDIAC: No results for input(s): CKMB, CKMBP, TROPT, PBNP in the last 168 hours. Lab Results Component Value Date/Time CULT No growth (<1,000 CFU/ml) 12/08/2012 12:50 PM RADIOLOGY: CT-Brain/Head without Contrast IMPORT Result Date: 02/28/2023 Images were obtained outside of [facility] CT-Abdomen/Pelvis W IV Cont ONLY IMPORT Result Date: 02/28/2023 Images were obtained outside of [facility] OT-Chest 1 View (Portable) IMPORT Result Date: 02/28/2023 Images were obtained outside of [facility] Assessment/Plan Peritonitis (HCC) (POA: Yes) ESRD [...] catheter placeme (more content not included)... Normal [facility] NURSING PROGon 03-01-2023 NURSING PROG HNO ID: [id number] Author: Maegan Veliz, SEBAS Service: Nursing Author Type: Registered Nurse Type: Nursing Progress Note Filed: 03/01/2023 7:47 PM Note Text: Other: sound paged for sepsis alert. HR 124 Temp 39.3 1944 Repeated temp 38.2 oral and 38.1 oral HR 118 Normal [facility] Phosphate SerPl-mCncon 03-01 Phosphate [Mass/Vol] 1.9 mg/dL Low 2.7-4.8 [facility] Comment on above: Order Comment: Camilo redman Type: BLOOD SPECIMEN Ordering Facility: [facility] Address: [address] [place] [address] Performed By: #### 5 7021-8 #### [facility] CLIA [id number] [address] [place] [address] [place] Vancomycin random [Mass/Vol] on 03-01-2023 Vancomycin [Mass/Vol] 8.8 ug/mL Low 10.0-20.0 [facility] Comment on above: Order Comment: Camilo redman Type: BLOOD SPECIMEN Ordering Facility: [facility] Address: [address] [place] [address] Result Comment: Refe rence ranges and high/low indicator flags are provided as general guidelines only. The treating physician must determine appropriate target levels/dosing based on the specific clinical situation. Performed By: #### 2 4362-6 #### [facility] CLIA [id number] [address] [place] [address] [place] XR ABDOMEN 1V SUPINEon [...] within normal limits in terms of positioning. 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[employer] Room: KRISS Transcribe Date/Time: Mar 02 2023 10:58A Dictated by : DIMITRI HERNANDEZ MD This examination was interpreted and the report reviewed and electronically signed by: DIMITRI HERNANDEZ MD on Mar 02 2023 11:02AM EST [id number] Normal [facility] Absolute lymphocyte countOrd ered By: Chey Bates on 02-28-2023 Lymphocytes Auto (Unsp spec) [#/Vol] 0.44 10*3/uL 0.83-4.51 [facility] Basophil percentageOrdered B y: Chey Bates on 02-28-2023 Basophil percentage 2.1 mg/dL 2.5-4.9 [facility] Basophils/100 WBC (Bld) 0.5 % 0-1 [facility] Bilirubin [Mass/Vol] 0.70 mg/dL 0.20-1.00 [facility] Comment on above: For patients on eltr ombopag therapy, use of Dimension [place] TBIL is not recommended. Chloride [Moles/Vol] 106 mmol/L 98-107 [facility] Eosinophils/100 WBC (Bld) 1.8 % 0-5 [facility] Glucose [Mass/Vol] 100 mg/dL 74-106 [facility] Comment on above: Fasting Glucose resu lt from 100 to 125 mg/dL suggests IMPAIRED HOMEOSTASIS per A.D.A. criteria. Neutrophils (Bld) [#/Vol] 5.5 10*3/uL 2.0-7.7 [facility] Neutrophils/100 WBC (Bld) 84.4 % 47-70 [facility] Potassium [Moles/Vol] 4.7 mmol/L 3.5-5.1 [facility] Protein [Mass/Vol] 5.3 g/dL 6.4-8.2 [facility] Sodium [Moles/Vol] 138 mmol/L 136-145 [facility] WBC (Bld) [#/Vol] 6.5 10*3/uL 4.4-11.0 [facility] Blood erythrocytes count (nu mber/volume)Ordered By: Chey Bates on 02-28-2023 RBC (Bld) [#/Vol] 3.50 10*6/uL 4.6-6.2 [facility] Blood hemoglobin measurement (mass/volume)Ordered By: Chey Bates on 02-28-2023 Hemoglobin (Bld) [Mass/Vol] 11.2 g/dL 13.0-16.5 [facility] Blood lymphocytes/100 leukoc ytesOrdered By: Chey Bates on 02-28-2023 Lymphocytes/100 WBC (Bld) 6.8 % 19-41 [facility] Blood manual differential co mment interpretation (narrative result)Ordered By: Chey Bates on 02-28-2023 Manual differential comment Yunior (Bld) [Interp] SCANNED [facility] Comment on above: LYMPHOPENIA NOTED Blood monocytes/100 leukocyt esOrdered By: Chey Bates on 02-28-2023 Monocytes/100 WBC (Bld) 6.2 % 0-10 [facility] Blood platelet mean volumeOr dered By: Chey Bates on 02-28-2023 Platelet mean volume (Bld) [Entitic vol] 9.4 fL 6.2-12.0 [facility] Determination of erythrocyte mean corpuscular volume (MCV)Ordered By: Chey Bates on 02-28-2023 MCV (RBC) [Entitic vol] 96.9 fL 80-94 [facility] Hematocrit Auto (Bld) [Volum e fraction]Ordered By: Chey Bates on 02-28-2023 Hematocrit (Bld) [Volume fraction] 33.9 % 40-54 [facility] Laboratory - Chemistry and C hemistry - challengeOrdered By: Chey Bates on 02-28-2023 ALP [Catalytic activity/Vol] 115 U/L 45-117 [facility] ALT [Catalytic activity/Vol] 21 U/L 16-61 [facility] CO2 [Moles/Vol] 23.0 mmol/L 21.0-32.0 [facility] Globulin (S) [Mass/Vol] 2.9 g/dL 2.2-4.2 [facility] Magnesium [Mass/Vol] 2.4 mg/dL 1.6-2.6 [facility] Urea nitrogen/Creatinine [Mass ratio] 8.7 mg/mg 10-20 [facility] Laboratory - Hematology and Cell countsOrdered By: Chey Bates on 02-28-2023 Erythrocyte distribution width (RBC) [Entitic vol] 49.6 fL 35.1-43.9 [facility] Erythrocyte distribution width (RBC) [Ratio] 13.8 % 11.6-14.6 [facility] Immature granulocytes/100 WBC (Bld) 0.300 % 0.0-0.9 [facility] Comment on above: IG% - Immature Granu locytes (promyelocytes, myelocytes and metamyelocytes) > 1% indicates that a LEFT SHIFT is Present. MCH (RBC) [Entitic mass] 32.0 pg 27.0-32.0 [facility] Nucleated RBC/100 WBC (Bld) [Ratio] 0 % 0-5 [facility] MCHC Auto (RBC) [Mass/Vol]Or dered By: Chey Bates on 02-28-2023 MCHC (RBC) [Mass/Vol] 33.0 g/dL 32-36 [facility] No Panel InformationOrdered By: Chey Bates on 02-28-2023 Estimated Creatinine Clearance Calc 20.27 ml/min [facility] Estimated GFR (MDRD) Amer 26 mL/min >60 [facility] Comment on above: GFR Calc Estimated GFR (MDRD) Non-Af Amer 22 mL/min >60 [facility] Comment on above: Non- GFR Calc Platelets bldOrdered By: Tc Bates on 02-28-2023 Platelets (Bld) [#/Vol] 113 10*3/uL 150-450 [facility] Serum or plasma albumin satish urement (mass/volume)Ordered By: Chey Bates on 02-28-2023 Albumin [Mass/Vol] 2.4 g/dL 3.2-5.0 [facility] Serum or plasma albumin/glob ulin mass ratioOrdered By: hCey Bates on 02-28-2023 Albumin/Globulin [Mass ratio] 0.8 {ratio} 0.9-2.4 [facility] Serum or plasma calcium satish urement (mass/volume)Ordered By: Chey Bates on 02-28-2023 Calcium [Mass/Vol] 8.4 mg/dL 8.5-10.1 [facility] Serum or plasma creatinine m easurement (mass/volume)Ordered By: Chey Bates on 02-28-2023 Creatinine [Mass/Vol] 3.00 mg/dL 0.70-1.30 [facility] Comment on above: The validity of the calculated GFR & GFRAA in patients over 70 years has not been determined. Clinical correlation is essential. Serum or plasma urea nitroge n measurement (mass/volume)Ordered By: Chey Bates on 02-28-2023 Urea nitrogen [Mass/Vol] 26 mg/dL 7-18 [facility] Thin prep Papanicolaou smear with manual screeningOrdered By: Chey Bates on 02-28-2023 Thin prep Papanicolaou smear with manual screening 17 U/L 15-37 [facility] Thin prep Papanicolaou smear with manual screening 9 5-15 [facility] Absolute lymphocyte countOrd ered By: Tha Leblanc on 02-27-2023 Lymphocytes Auto (Unsp spec) [#/Vol] 0.34 10*3/uL 0.83-4.51 [facility] Anaerobic cultureOrdered By: Tha Leblanc on 02-27-2023 Bacteria identified Anaer cx Nom (Unsp spec) No growth in 5 days. [facility] Bacteria identified Anaer cx Nom (Unsp spec) No growth in 5 days. [facility] Bacteria identified Cx Nom ( Body fld)Ordered By: Tha Leblanc on 02-27-2023 Body Fluid Culture Stenotrophomonas maltophilia [facility] Basophil percentageOrdered B y: Tha Leblanc on 02-27-2023 Lactate [Moles/Vol] 0.9 mmol/L 0.4-2.0 [facility] Basophil percentage 25-50 SEEN /hpf 0-5 [facility] Basophils/100 WBC (Bld) 0.3 % 0-1 [facility] Bilirubin [Mass/Vol] 0.70 mg/dL 0.20-1.00 [facility] Comment on above: For patients on eltr ombopag therapy, use of Dimension [place] TBIL is not recommended. Chloride [Moles/Vol] 104 mmol/L 98-107 [facility] Eosinophils/100 WBC (Bld) 0.6 % 0-5 [facility] Glucose [Mass/Vol] 140 mg/dL 74-106 [facility] Comment on above: Fasting Glucose resu lt greater than or equal to 126 mg/dL suggests DIABETES MELLITUS per A.D.A. criteria. Neutrophils (Bld) [#/Vol] 6.1 10*3/uL 2.0-7.7 [facility] Neutrophils/100 WBC (Bld) 89.2 % 47-70 [facility] Potassium [Moles/Vol] 4.2 mmol/L 3.5-5.1 [facility] Protein [Mass/Vol] 6.1 g/dL 6.4-8.2 [facility] Sodium [Moles/Vol] 134 mmol/L 136-145 [facility] WBC (Bld) [#/Vol] 6.9 10*3/uL 4.4-11.0 [facility] Bilirubin Test strip Ql (U)O rdered By: Tha Leblanc on 02-27-2023 Bilirubin Ql (U) Negative Negative [facility] Blood erythrocytes count (nu mber/volume)Ordered By: Tha Leblanc on 02-27-2023 RBC (Bld) [#/Vol] 4.04 10*6/uL 4.6-6.2 [facility] Blood hemoglobin measurement (mass/volume)Ordered By: Tha Leblanc on 02-27-2023 Hemoglobin (Bld) [Mass/Vol] 12.6 g/dL 13.0-16.5 [facility] Blood lymphocytes/100 leukoc ytesOrdered By: Tha Leblanc on 02-27-2023 Lymphocytes/100 WBC (Bld) 4.9 % 19-41 [facility] Blood manual differential co mment interpretation (narrative result)Ordered By: Tha Leblanc on 02-27-2023 Manual differential comment Yunior (Bld) [Interp] SCANNED [facility] Comment on above: LYMPHOPENIA NOTED Blood monocytes/100 leukocyt esOrdered By: Tha Leblanc on 02-27-2023 Monocytes/100 WBC (Bld) 4.6 % 0-10 [facility] Blood platelet mean volumeOr dered By: Tha Leblanc on 02-27-2023 Platelet mean volume (Bld) [Entitic vol] 9.5 fL 6.2-12.0 [facility] Body fluid appearanceOrdered By: Tha Leblanc on 02-27-2023 Appearance (Body fld) SL CLDY [facility] Body fluid color determinati onOrdered By: Tha Leblanc on 02-27-2023 Color (Body fld) COLORLESS [facility] Body fluid leukocytes count (number/volume)Ordered By: Tha Leblanc on 02-27-2023 WBC (Body fld) [#/Vol] 1.144 10*3/uL [facility] Culture, urineOrdered By: Truong Leblanc on 02-27-2023 Bacteria identified Cx Nom (U) Meth. resistant Staph. aureus [facility] Bacteria identified Cx Nom (U) Meth. resistant Staph. aureus [facility] Determination of erythrocyte mean corpuscular volume (MCV)Ordered By: Tha Leblanc on 02-27-2023 MCV (RBC) [Entitic vol] 95.8 fL 80-94 [facility] Gram stain for investigation of transfusion reactionOrdered By: Tha Leblanc on 02-27-2023 Microscopic observation Gram stain Nom (Unsp spec) [facility] Microscopic observation Gram stain Nom (Unsp spec) [facility] Hematocrit Auto (Bld) [Volum e fraction]Ordered By: Tha Leblanc on 02-27-2023 Hematocrit (Bld) [Volume fraction] 38.7 % 40-54 [facility] INR in Blood by Coagulation assayOrdered By: Tha Leblanc on 02-27-2023 INR Coag (Bld) [Relative time] 1.1 {INR} [facility] Ketones Test strip Ql (U)Ord ered By: Tha Leblanc on 02-27-2023 Ketones Ql (U) Negative Negative [facility] Laboratory - Chemistry and C hemistry - challengeOrdered By: Tha Leblanc on 02-27-2023 ALP [Catalytic activity/Vol] 136 U/L 45-117 [facility] ALT [Catalytic activity/Vol] 27 U/L 16-61 [facility] CO2 [Moles/Vol] 27.0 mmol/L 21.0-32.0 [facility] Globulin (S) [Mass/Vol] 3.1 g/dL 2.2-4.2 [facility] Lipase [Catalytic activity/Vol] 14 U/L 13-75 [facility] Comment on above: Please note:LIPASE r evised reference range effective 22. New Lipase methodology. Expected to produce lower values than the previous assay method. NEW Reference Range: 13 - 75 U/L Urea nitrogen/Creatinine [Mass ratio] 8.5 mg/mg 10-20 [facility] Laboratory - CoagulationOrde red By: Tha Leblanc on 02-27-2023 aPTT Coag (Bld) [Time] 31.2 s 24.1-36.2 [facility] PT Coag (PPP) [Time] 14.2 s 11.7-14.9 [facility] Laboratory - Hematology and Cell countsOrdered By: Tha Leblanc on 02-27-2023 Erythrocyte distribution width (RBC) [Entitic vol] 48.0 fL 35.1-43.9 [facility] Erythrocyte distribution width (RBC) [Ratio] 13.5 % 11.6-14.6 [facility] Immature granulocytes/100 WBC (Bld) 0.400 % 0.0-0.9 [facility] Comment on above: IG% - Immature Granu locytes (promyelocytes, myelocytes and metamyelocytes) > 1% indicates that a LEFT SHIFT is Present. MCH (RBC) [Entitic mass] 31.2 pg 27.0-32.0 [facility] Nucleated RBC/100 WBC (Bld) [Ratio] 0 % 0-5 [facility] Laboratory - Microbiology an d Antimicrobial susceptibilityOrdered By: Tha Leblanc on 02-27-2023 Bacteria identified Cx Nom (Bld) No growth in 5 days. [facility] Bacteria identified Cx Nom (Bld) No growth in 5 days. [facility] MCHC Auto (RBC) [Mass/Vol]Or dered By: Tha Leblanc on 02-27-2023 MCHC (RBC) [Mass/Vol] 32.6 g/dL 32-36 [facility] Mononuclear cells Auto (Body fld) [#/Vol]Ordered By: Tha Leblanc on 02-27-2023 Mononuclear cells (Body fld) [#/Vol] 0.379 10*3/uL [facility] Mucus LM Ql (Urine sed)Order ed By: Tha Leblanc on 02-27-2023 Mucus Ql (Urine sed) 0 SEEN /hpf [facility] Nitrite Test strip Ql (U)Ord ered By: Tha Leblanc on 02-27-2023 Nitrite Ql (U) Negative Negative [facility] No Panel InformationOrdered By: Tha Leblanc on 02-27-2023 Body Fluid Comment 2 SEE COMMENT [facility] Comment on above: .INTERPRETATION OF R ESULTS: Differentiation of transudate and exudate fluid: TRANSUDATE EXUDATE Color- Clear,straw colored Clear,turbid,bloody,purulent RBCs- Usually none to few Often present in high numbers WBCs- Usually none to few Often present in high numbers DIFF Few lymphocytes or Lymphocytes, neutrophils, andCount- mesothelial cells. polymorphonuclear cells . Body Fluid Mononuclear WBCs (%) 33.1 % [facility] Body Fluid Pathologist Comment Reviewed [facility] Comment on above: Previous reported re sult: May follow Edited by: RGOOD on 02/28/23:1319Abundant bacteria present.Clinical correlation necessary.Joss Shaw D.O. 02/28/23 AMENDED REPORT 02/28/23 1319 PATH COMM/BF previously reported as: May follow Body Fluid Polynuclear WBCs (#) 0.765 10^3/uL [facility] Body Fluid Polynuclear WBCs (%) 66.9 % [facility] Body Fluid RBC < 0 /mm3 [facility] Estimated Creatinine Clearance Calc 18.48 ml/min [facility] Estimated GFR (MDRD) Amer 25 mL/min >60 [facility] Comment on above: GFR Calc Estimated GFR (MDRD) Non-Af Amer 20 mL/min >60 [facility] Comment on above: Non- GFR Calc Troponin I High Sensitivity 18 pg/mL 3.0-78.0 [facility] Comment on above: Please Note: New Margareth t Units and Gender Specific Reference Ranges. For more information see Policy Stat Procedure [place] High Sensitivity Troponin (TNIH) and attachments. Platelets bldOrdered By: Dipesh Leblanc on 02-27-2023 Platelets (Bld) [#/Vol] 128 10*3/uL 150-450 [facility] Protein Test strip Ql (U)Ord ered By: Tha Leblanc on 02-27-2023 Protein Ql (U) 30 mg/dl Negative [facility] Serum or plasma albumin satish urement (mass/volume)Ordered By: Tha Leblanc on 02-27-2023 Albumin [Mass/Vol] 3.0 g/dL 3.2-5.0 [facility] Serum or plasma albumin/glob ulin mass ratioOrdered By: Tha Leblanc on 02-27-2023 Albumin/Globulin [Mass ratio] 1.0 {ratio} 0.9-2.4 [facility] Serum or plasma calcium satish urement (mass/volume)Ordered By: Tha Leblanc on 02-27-2023 Calcium [Mass/Vol] 8.8 mg/dL 8.5-10.1 [facility] Serum or plasma creatinine m easurement (mass/volume)Ordered By: Tha Leblanc on 02-27-2023 Creatinine [Mass/Vol] 3.18 mg/dL 0.70-1.30 [facility] Comment on above: The validity of the calculated GFR & GFRAA in patients over 70 years has not been determined. Clinical correlation is essential. Serum or plasma urea nitroge n measurement (mass/volume)Ordered By: Tha Leblanc on 02-27-2023 Urea nitrogen [Mass/Vol] 27 mg/dL 7-18 [facility] Specimen source identificati on of body fluidOrdered By: Tha Leblanc on 02-27-2023 Specimen source Nom (Body fld) PERITONEAL FLUID [facility] Squamous epithelial cells de tection in urine sediment by light microscopyOrdered By: Tha Leblanc on 02-27-2023 Epithelial cells.squamous LM Ql (Urine sed) 0 SEEN /hpf 0-5 [facility] Thin prep Papanicolaou smear with manual screeningOrdered By: Tha Leblanc on 02-27-2023 Thin prep Papanicolaou smear with manual screening 19 U/L 15-37 [facility] Thin prep Papanicolaou smear with manual screening 3 5-15 [facility] Total cell countOrdered By: Tha Leblanc on 02-27-2023 Cells counted Molgen (Bld/Tiss) [#] 1.190 10^3/ul [facility] Comment on above: This is the Total Nu mber of Nucleated Cell Types in the Body Fluid. Urine blood detectionOrdered By: Tha Leblanc on 02-27-2023 RBC Ql (U) 25 /ul Negative [facility] RBC Ql (U) 0-5 SEEN /hpf 0-5 [facility] Urine clarityOrdered By: Dipesh Leblanc on 02-27-2023 Clarity (U) Clear Clear [facility] Urine color determinationOrd ered By: Tha Leblanc on 02-27-2023 Color (U) Yellow Yellow [facility] Urine glucose detectionOrder ed By: Tha Leblanc on 02-27-2023 Glucose Ql (U) Normal mg/dl Normal [facility] Urine leukocyte esterase det ection by dipstickOrdered By: Tha Leblanc on 02-27-2023 Leukocyte esterase Test strip Ql (U) 500 /ul Negative [facility] Urine pHOrdered By: Tah Leblanc on 02-27-2023 pH (U) 7.0 [pH] 5.0 - 8.0 [facility] Urine sediment bacteria coun t by microscopy (number/high power field)Ordered By: Tha Leblanc on 02-27-2023 Bacteria LM.HPF (Urine sed) [#/Area] 1 /[HPF] None Seen [facility] Urine specific gravity measu rementOrdered By: Tha Leblanc on 02-27-2023 Specific gravity (U) [Rel density] 1.005 1.002-1.030 [facility] Urobilinogen Auto test strip Ql (U)Ordered By: Tha Leblanc on 02-27-2023 Urobilinogen Ql (U) Normal mg/dl Normal [facility] Absolute lymphocyte countOrd ered By: Ashely Jeff on 02-25-2023 Lymphocytes Auto (Unsp spec) [#/Vol] 0.69 10*3/uL 0.83-4.51 [facility] Basophil percentageOrdered B y: Ashely Aguilar on 02-25-2023 Basophil percentage 10-25 SEEN /hpf 0-5 [facility] Basophils/100 WBC (Bld) 0.4 % 0-1 [facility] Bilirubin [Mass/Vol] 0.40 mg/dL 0.20-1.00 [facility] Comment on above: For patients on eltr ombopag therapy, use of Dimension [place] TBIL is not recommended. Chloride [Moles/Vol] 105 mmol/L 98-107 [facility] Eosinophils/100 WBC (Bld) 1.4 % 0-5 [facility] Glucose [Mass/Vol] 122 mg/dL 74-106 [facility] Comment on above: Fasting Glucose resu lt from 100 to 125 mg/dL suggests IMPAIRED HOMEOSTASIS per A.D.A. criteria. Lactate [Moles/Vol] 1.0 mmol/L 0.4-2.0 [facility] Neutrophils (Bld) [#/Vol] 4.4 10*3/uL 2.0-7.7 [facility] Neutrophils/100 WBC (Bld) 78.8 % 47-70 [facility] Potassium [Moles/Vol] 4.1 mmol/L 3.5-5.1 [facility] Protein [Mass/Vol] 5.3 g/dL 6.4-8.2 [facility] Sodium [Moles/Vol] 137 mmol/L 136-145 [facility] WBC (Bld) [#/Vol] 5.6 10*3/uL 4.4-11.0 [facility] Bilirubin Test strip Ql (U)O rdered By: Ashely Aguilar on 02-25-2023 Bilirubin Ql (U) Negative Negative [facility] Blood erythrocytes count (nu mber/volume)Ordered By: Ashely Aguilar on 02-25-2023 RBC (Bld) [#/Vol] 3.67 10*6/uL 4.6-6.2 [facility] Blood hemoglobin measurement (mass/volume)Ordered By: Ashely Aguilar on 02-25-2023 Hemoglobin (Bld) [Mass/Vol] 11.8 g/dL 13.0-16.5 [facility] Blood lymphocytes/100 leukoc ytesOrdered By: Ashely Aguilar on 02-25-2023 Lymphocytes/100 WBC (Bld) 12.4 % 19-41 [facility] Blood monocytes/100 leukocyt esOrdered By: Ashely Aguilar on 02-25-2023 Monocytes/100 WBC (Bld) 6.6 % 0-10 [facility] Blood platelet mean volumeOr dered By: Ashely Aguilar on 02-25-2023 Platelet mean volume (Bld) [Entitic vol] 9.3 fL 6.2-12.0 [facility] Determination of erythrocyte mean corpuscular volume (MCV)Ordered By: Ashely Aguilar on 02-25-2023 MCV (RBC) [Entitic vol] 97.0 fL 80-94 [facility] Direct bilirubinOrdered By: Ashely Aguilar on 02-25-2023 Bilirubin.direct [Mass/Vol] 0.22 mg/dL 0.00-0.30 [facility] Hematocrit Auto (Bld) [Volum e fraction]Ordered By: Ashely Aguilar on 02-25-2023 Hematocrit (Bld) [Volume fraction] 35.6 % 40-54 [facility] Ketones Test strip Ql (U)Ord ered By: Ashely Aguilar on 02-25-2023 Ketones Ql (U) Negative Negative [facility] Laboratory - Chemistry and C hemistry - challengeOrdered By: Ashely Aguilar on 02-25-2023 ALP [Catalytic activity/Vol] 114 U/L 45-117 [facility] ALT [Catalytic activity/Vol] 28 U/L 16-61 [facility] CO2 [Moles/Vol] 29.0 mmol/L 21.0-32.0 [facility] Globulin (S) [Mass/Vol] 2.5 g/dL 2.2-4.2 [facility] Lipase [Catalytic activity/Vol] 16 U/L 13-75 [facility] Comment on above: Please note:LIPASE r evised reference range effective 22. New Lipase methodology. Expected to produce lower values than the previous assay method. NEW Reference Range: 13 - 75 U/L Urea nitrogen/Creatinine [Mass ratio] 9.9 mg/mg 10-20 [facility] Laboratory - Hematology and Cell countsOrdered By: Ashely Aguilar on 02-25-2023 Erythrocyte distribution width (RBC) [Entitic vol] 48.9 fL 35.1-43.9 [facility] Erythrocyte distribution width (RBC) [Ratio] 13.7 % 11.6-14.6 [facility] Immature granulocytes/100 WBC (Bld) 0.400 % 0.0-0.9 [facility] Comment on above: IG% - Immature Granu locytes (promyelocytes, myelocytes and metamyelocytes) > 1% indicates that a LEFT SHIFT is Present. MCH (RBC) [Entitic mass] 32.2 pg 27.0-32.0 [facility] Nucleated RBC/100 WBC (Bld) [Ratio] 0 % 0-5 [facility] MCHC Auto (RBC) [Mass/Vol]Or dered By: Ashely Aguilar on 02-25-2023 MCHC (RBC) [Mass/Vol] 33.1 g/dL 32-36 [facility] Mucus LM Ql (Urine sed)Order ed By: Ashely Aguilar on 02-25-2023 Mucus Ql (Urine sed) 0 SEEN /hpf [facility] Nitrite Test strip Ql (U)Ord ered By: Ashely Aguilar on 02-25-2023 Nitrite Ql (U) Negative Negative [facility] No Panel InformationOrdered By: Ashely Aguilar on 02-25-2023 Estimated Creatinine Clearance Calc 19.36 ml/min [facility] Estimated GFR (MDRD) Amer 25 mL/min >60 [facility] Comment on above: GFR Calc Estimated GFR (MDRD) Non-Af Amer 21 mL/min >60 [facility] Comment on above: Non- GFR Calc Platelets bldOrdered By: John Aguilar on 02-25-2023 Platelets (Bld) [#/Vol] 120 10*3/uL 150-450 [facility] Protein Test strip Ql (U)Ord ered By: Ashely Aguilar on 02-25-2023 Protein Ql (U) 30 mg/dl Negative [facility] Serum or plasma albumin satish urement (mass/volume)Ordered By: Ashely Aguilar on 02-25-2023 Albumin [Mass/Vol] 2.8 g/dL 3.2-5.0 [facility] Serum or plasma calcium satish urement (mass/volume)Ordered By: Ashely Aguilar on 02-25-2023 Calcium [Mass/Vol] 8.4 mg/dL 8.5-10.1 [facility] Serum or plasma creatinine m easurement (mass/volume)Ordered By: Ashely Aguilar on 02-25-2023 Creatinine [Mass/Vol] 3.14 mg/dL 0.70-1.30 [facility] Comment on above: The validity of the calculated GFR & GFRAA in patients over 70 years has not been determined. Clinical correlation is essential. Serum or plasma urea nitroge n measurement (mass/volume)Ordered By: Ashely Aguilar on 02-25-2023 Urea nitrogen [Mass/Vol] 31 mg/dL 7-18 [facility] Squamous epithelial cells de tection in urine sediment by light microscopyOrdered By: Ashely Aguilar on 02-25-2023 Epithelial cells.squamous LM Ql (Urine sed) 0 SEEN /hpf 0-5 [facility] Thin prep Papanicolaou smear with manual screeningOrdered By: Ashely Aguilar on 02-25-2023 Thin prep Papanicolaou smear with manual screening 22 U/L 15-37 [facility] Thin prep Papanicolaou smear with manual screening 3 5-15 [facility] Urine blood detectionOrdered By: Ashely Aguilar on 02-25-2023 RBC Ql (U) 10 /ul Negative [facility] RBC Ql (U) 0-5 SEEN /hpf 0-5 [facility] Urine clarityOrdered By: John Aguilar on 02-25-2023 Clarity (U) Clear Clear [facility] Urine color determinationOrd ered By: Ashely Aguilar on 02-25-2023 Color (U) Yellow Yellow [facility] Urine glucose detectionOrder ed By: Ashely Aguilar on 02-25-2023 Glucose Ql (U) 50 mg/dl Normal [facility] Urine leukocyte esterase det ection by dipstickOrdered By: Ashely Aguilar on 02-25-2023 Leukocyte esterase Test strip Ql (U) 100 /ul Negative [facility] Urine pHOrdered By: Ashely pulliam on 02-25-2023 pH (U) 7.0 [pH] 5.0 - 8.0 [facility] Urine sediment bacteria coun t by microscopy (number/high power field)Ordered By: Ashely Aguilar on 02-25-2023 Bacteria LM.HPF (Urine sed) [#/Area] 0 /[HPF] None Seen [facility] Urine specific gravity measu rementOrdered By: Ashely Aguilar on 02-25-2023 Specific gravity (U) [Rel density] 1.010 1.002-1.030 [facility] Urobilinogen Auto test strip Ql (U)Ordered By: Ashely Aguilar on 02-25-2023 Urobilinogen Ql (U) Normal mg/dl Normal [facility] Basic metabolic 1998 panelon 12-31-2022 Anion gap [Moles/Vol] 9 mmol/L 3 - 13 mmol/L [facility] Calcium [Mass/Vol] 8.8 mg/dL 8.4 - 10. 4 mg/dL [facility] Chloride [Moles/Vol] 96 mmol/L Low 98 - 10 7 mmol/L [facility] CO2 [Moles/Vol] 29 mmol/L 22 - 30 mmol/L [facility] Creatinine [Mass/Vol] 3.17 mg/dL High 0.66 - 1.25 mg/dL [facility] GFR/1.73 sq M.predicted MDRD (S/P/Bld) [Vol rate/Area] 19.5 mL/min/{1.73_m2} Low - PINF [facility] Comment on above: Calculation based on the Chronic Kidney Disease Epidemiology Collaboration (CKD-EPI) equation refit without adjustment for race Glucose [Mass/Vol] 98 mg/dL 70 - 100 mg/dL [facility] Interpretation and review of laboratory results Abnormal [facility] Potassium [Moles/Vol] 3.8 mmol/L 3.5 - 5.1 mmol/L [facility] Sodium [Moles/Vol] 134 mmol/L Low 135 - 145 mmol/L [facility] Urea nitrogen [Mass/Vol] 24 mg/dL High 9 - 20 mg/dL [facility] POCT glucose meteron 023 Glucose [Mass/Vol] 103 mg/dL High 70 - 100 mg/dL [facility] Interpretation and review of laboratory results Abnormal [facility] Performed by: [facility], [address] [place] [address] CLIA ID: [id number] [facility] STREP A MOLECULAR (POC)on Procedural Control Valid [facility] Strep A (POCT) Negative Negative [facility] Absolute lymphocyte countOrd ered By: Matilde Noguera on 11-28-2022 Lymphocytes Auto (Unsp spec) [#/Vol] 1.10 10*3/uL 0.83-4.51 [facility] Basophil percentageOrdered B y: Matilde Noguera on 11-28-2022 Basophil percentage >100 SEEN /hpf 0-[address] [facility] Basophils/100 WBC (Bld) 0.7 % 0-1 [facility] Bilirubin [Mass/Vol] 0.70 mg/dL 0.20-1.00 [facility] Comment on above: For patients on eltr ombopag therapy, use of Dimension [place] TBIL is not recommended. Chloride [Moles/Vol] 101 mmol/L 98-107 [facility] Cholesterol [Mass/Vol] 149 mg/dL <200 [facility] Comment on above: <200 mg/dL Desirable 200-240 mg/dL Borderline >240 mg/dL High Risk Eosinophils/100 WBC (Bld) 2.3 % 0-5 [facility] Glucose [Mass/Vol] 88 mg/dL 74-106 [facility] Neutrophils (Bld) [#/Vol] 5.0 10*3/uL 2.0-7.7 [facility] Neutrophils/100 WBC (Bld) 72.0 % 47-70 [facility] Potassium [Moles/Vol] 4.9 mmol/L 3.5-5.1 [facility] Protein [Mass/Vol] 6.4 g/dL 6.4-8.2 [facility] Sodium [Moles/Vol] 134 mmol/L 136-145 [facility] Triglyceride [Mass/Vol] 98 mg/dL <199 [facility] Comment on above: The drugs N-Acetylcy steine and Metamizole may falsely depress this assay.Serum Triglycerides Reference Interval Normal <150 mg/dL Borderline high 150 - 199 mg/dL High 200 - 499 mg/dL Very High > or = 500 mg/dL WBC (Bld) [#/Vol] 6.9 10*3/uL 4.4-11.0 [facility] Bilirubin Test strip Ql (U)O rdered By: Matilde Noguera on 11-28-2022 Bilirubin Ql (U) Negative Negative [facility] Blood erythrocytes count (nu mber/volume)Ordered By: Matilde Noguera on 11-28-2022 RBC (Bld) [#/Vol] 3.65 10*6/uL 4.6-6.2 [facility] Blood hemoglobin measurement (mass/volume)Ordered By: Matilde Noguera on 11-28-2022 Hemoglobin (Bld) [Mass/Vol] 11.1 g/dL 13.0-16.5 [facility] Blood lymphocytes/100 leukoc ytesOrdered By: Matilde Noguera on 11-28-2022 Lymphocytes/100 WBC (Bld) 16.0 % 19-41 [facility] Blood monocytes/100 leukocyt esOrdered By: Matilde Noguera on 11-28-2022 Monocytes/100 WBC (Bld) 8.6 % 0-10 [facility] Blood platelet mean volumeOr dered By: Matilde Noguera on 11-28-2022 Platelet mean volume (Bld) [Entitic vol] 9.3 fL 6.2-12.0 [facility] Culture, urineOrdered By: Marvin Noguera on 11-28-2022 Bacteria identified Cx Nom (U) Meth. resistant Staph. aureus [facility] Determination of erythrocyte mean corpuscular volume (MCV)Ordered By: Matilde Noguera on 11-28-2022 MCV (RBC) [Entitic vol] 97.3 fL 80-94 [facility] Hematocrit Auto (Bld) [Volum e fraction]Ordered By: Matilde Noguera on 11-28-2022 Hematocrit (Bld) [Volume fraction] 35.5 % 40-54 [facility] Ketones Test strip Ql (U)Ord ered By: Matilde Noguera on 11-28-2022 Ketones Ql (U) 5 mg/dl Negative [facility] Laboratory - Chemistry and C hemistry - challengeOrdered By: Matilde Noguera on 11-28-2022 ALP [Catalytic activity/Vol] 86 U/L 45-117 [facility] ALT [Catalytic activity/Vol] 16 U/L 16-61 [facility] CO2 [Moles/Vol] 27.0 mmol/L 21.0-32.0 [facility] Globulin (S) [Mass/Vol] 3.0 g/dL 2.2-4.2 [facility] Urea nitrogen/Creatinine [Mass ratio] 8.3 mg/mg 10-20 [facility] Laboratory - Hematology and Cell countsOrdered By: Matilde Noguera on 11-28-2022 Erythrocyte distribution width (RBC) [Entitic vol] 49.6 fL 35.1-43.9 [facility] Erythrocyte distribution width (RBC) [Ratio] 13.9 % 11.6-14.6 [facility] Immature granulocytes/100 WBC (Bld) 0.400 % 0.0-0.9 [facility] Comment on above: IG% - Immature Granu locytes (promyelocytes, myelocytes and metamyelocytes) > 1% indicates that a LEFT SHIFT is Present. MCH (RBC) [Entitic mass] 30.4 pg 27.0-32.0 [facility] Nucleated RBC/100 WBC (Bld) [Ratio] 0 % 0-5 [facility] MCHC Auto (RBC) [Mass/Vol]Or dered By: Matilde Noguera on 11-28-2022 MCHC (RBC) [Mass/Vol] 31.3 g/dL 32-36 [facility] Mucus LM Ql (Urine sed)Order ed By: Matilde Noguera on 11-28-2022 Mucus Ql (Urine sed) 0 SEEN /hpf [facility] Nitrite Test strip Ql (U)Ord ered By: Matilde Noguera on 11-28-2022 Nitrite Ql (U) Negative Negative [facility] No Panel InformationOrdered By: Matilde Noguera on 11-28-2022 Urine Transitional Epithelial Cells See comment 0-5 [facility] Comment on above: Microscopic field is filled. Other elements may be obscured. Estimated GFR (MDRD) Amer 15 mL/min >60 [facility] Comment on above: GFR Calc Estimated GFR (MDRD) Non-Af Amer 12 mL/min >60 [facility] Comment on above: Non- GFR Calc Platelets bldOrdered By: Kwasi Noguera on 11-28-2022 Platelets (Bld) [#/Vol] 163 10*3/uL 150-450 [facility] Protein Test strip Ql (U)Ord ered By: Matilde Noguera on 11-28-2022 Protein Ql (U) 500 mg/dl Negative [facility] Serum or plasma albumin satish urement (mass/volume)Ordered By: Matilde Noguera on 11-28-2022 Albumin [Mass/Vol] 3.4 g/dL 3.2-5.0 [facility] Serum or plasma albumin/glob ulin mass ratioOrdered By: Matilde Noguera on 11-28-2022 Albumin/Globulin [Mass ratio] 1.1 {ratio} 0.9-2.4 [facility] Serum or plasma calcium satish urement (mass/volume)Ordered By: Matilde Noguera on 11-28-2022 Calcium [Mass/Vol] 8.9 mg/dL 8.5-10.1 [facility] Serum or plasma cholesterol in HDL measurement (mass/volume)Ordered By: Matilde Noguera on 11-28-2022 Cholesterol in HDL [Mass/Vol] 52 mg/dL >40 [facility] Comment on above: The drugs N-Acetylcy steine and Metamizole may falsely depress this assay. Reference Range HDL <40 mg/dL Low HDL Cholesterol HDL >or= 60 mg/dL High HDL Cholesterol Serum or plasma cholesterol in VLDL measurement (mass/volume)Ordered By: Matilde Noguera on 11-28-2022 Cholesterol in VLDL [Mass/Vol] 20 mg/dL 5-40 [facility] Serum or plasma creatinine m easurement (mass/volume)Ordered By: Matilde Noguera on 11-28-2022 Creatinine [Mass/Vol] 4.96 mg/dL 0.70-1.30 [facility] Comment on above: The validity of the calculated GFR & GFRAA in patients over 70 years has not been determined. Clinical correlation is essential. Serum or plasma low density lipoprotein (LDL) cholesterol measurement (mass/volume)Ordered By: Matilde Noguera on 11-28-2022 Cholesterol in LDL [Mass/Vol] 77 mg/dL 0-130 [facility] Serum or plasma urea nitroge n measurement (mass/volume)Ordered By: Matilde Noguera on 11-28-2022 Urea nitrogen [Mass/Vol] 41 mg/dL 7-18 [facility] Squamous epithelial cells de tection in urine sediment by light microscopyOrdered By: Matilde Noguera on 11-28-2022 Epithelial cells.squamous LM Ql (Urine sed) 5-10 SEEN /hpf 0-5 [facility] Thin prep Papanicolaou smear with manual screeningOrdered By: Matilde Noguera on 11-28-2022 Thin prep Papanicolaou smear with manual screening 16 U/L 15-37 [facility] Thin prep Papanicolaou smear with manual screening 6 5-15 [facility] Urine blood detectionOrdered By: Matilde Noguera on 11-28-2022 RBC Ql (U) 250 /ul Negative [facility] RBC Ql (U) > 100 SEEN /hpf 0-5 [facility] Urine clarityOrdered By: Kwasi Noguera on 11-28-2022 Clarity (U) Cloudy Clear [facility] Urine color determinationOrd ered By: Matilde Noguera on 11-28-2022 Color (U) Leydi Yellow [facility] Urine glucose detectionOrder ed By: Matilde Noguera on 11-28-2022 Glucose Ql (U) Normal mg/dl Normal [facility] Urine leukocyte esterase det ection by dipstickOrdered By: Matilde Noguera on 11-28-2022 Leukocyte esterase Test strip Ql (U) 500 /ul Negative [facility] Urine pHOrdered By: Matilde La indakosua on 11-28-2022 pH (U) 6.5 [pH] 5.0 - 8.0 [facility] Urine sediment bacteria coun t by microscopy (number/high power field)Ordered By: Matilde Noguera on 11-28-2022 Bacteria LM.HPF (Urine sed) [#/Area] 0 /[HPF] None Seen [facility] Urine specific gravity measu rementOrdered By: Matilde Noguera on 11-28-2022 Specific gravity (U) [Rel density] 1.015 1.002-1.030 [facility] Urobilinogen Auto test strip Ql (U)Ordered By: Matilde Noguera on 11-28-2022 Urobilinogen Ql (U) Normal mg/dl Normal [facility] No Panel InformationOrdered By: Dr. Decker on 09-10-2022 Prostate Specific Antigen Total 11.40 ng/mL 0.0-4.0 [facility] Comment on above: This test was perfor med using the TPSA assay method for the[facility] chemistry system. Values obtained with differentassay methods cannot be used interchangably.When changing PSA assays in the course of monitoring apatient, additional sequential testing should be carriedout to confirm baseline values. Absolute lymphocyte counton 01-19-2022 Lymphocytes Auto (Unsp spec) [#/Vol] 0.34 10*3/uL 0.83-4.51 [facility] Work Phone: Basophil percentageon 2021 Basophils/100 WBC (Bld) 0.6 % 0-1 [facility] Work Phone: Chloride [Moles/Vol] 105 mmol/L 98-107 [facility] Work Phone: Eosinophils/100 WBC (Bld) 0.3 % 0-5 [facility] Work Phone: Glucose [Mass/Vol] 102 mg/dL 74-106 [facility] Work Phone: Comment on above: Fasting Glucose resu lt from 100 to 125 mg/dL suggests IMPAIRED HOMEOSTASIS per A.D.A. criteria. Neutrophils (Bld) [#/Vol] 2.8 10*3/uL 2.0-7.7 [facility] Work Phone: Neutrophils/100 WBC (Bld) 77.1 % 47-70 [facility] Work Phone: Potassium [Moles/Vol] 4.6 mmol/L 3.5-5.1 [facility] Work Phone: Sodium [Moles/Vol] 135 mmol/L 136-145 [facility] Work Phone: WBC (Bld) [#/Vol] 3.6 10*3/uL 4.4-11.0 [facility] Work Phone: Blood erythrocytes count (nu mber/volume)on 01-19-2022 RBC (Bld) [#/Vol] 4.30 10*6/uL 4.6-6.2 [facility] Work Phone: Blood hemoglobin measurement (mass/volume)on 01-19-2022 Hemoglobin (Bld) [Mass/Vol] 13.0 g/dL 13.0-16.5 [facility] Work Phone: Blood lymphocytes/100 leukoc yteson 01-19-2022 Lymphocytes/100 WBC (Bld) 9.6 % 19-41 [facility] Work Phone: Blood manual differential co mment interpretation (narrative result)on 01-19-2022 Manual differential comment Yunior (Bld) [Interp] SCANNED [facility] Work Phone: Blood monocytes/100 leukocyt eson 01-19-2022 Monocytes/100 WBC (Bld) 11.8 % 0-10 [facility] Work Phone: Blood platelet adequacy dete ction by light microscopyon 01-19-2022 Platelets LM Ql (Bld) SLT DEC [facility] Work [facility]: Blood platelet mean volumeon 01-19-2022 Platelet mean volume (Bld) [Entitic vol] 9.2 fL 6.2-12.0 [facility] Work Phone: Determination of erythrocyte mean corpuscular volume (MCV)on 01-19-2022 MCV (RBC) [Entitic vol] 94.4 fL 80-94 [facility] Work Phone: Hematocrit Auto (Bld) [Volum e fraction]on 01-19-2022 Hematocrit (Bld) [Volume fraction] 40.6 % 40-54 [facility] Work Phone: Laboratory - Chemistry and C hemistry - challengeon 01-19-2022 CO2 [Moles/Vol] 22.0 mmol/L 21.0-32.0 [facility] Work Phone: Urea nitrogen/Creatinine [Mass ratio] 9.4 mg/mg 10-20 [facility] Work Phone: Laboratory - Hematology and Cell countson 01-19-2022 Erythrocyte distribution width (RBC) [Entitic vol] 46.6 fL 35.1-43.9 [facility] Work Phone: Erythrocyte distribution width (RBC) [Ratio] 13.5 % 11.6-14.6 [facility] Work Phone: Immature granulocytes/100 WBC (Bld) 0.600 % 0.0-0.9 [facility] Work Phone: Comment on above: IG% - Immature Granu locytes (promyelocytes, myelocytes and metamyelocytes) > 1% indicates that a LEFT SHIFT is Present. MCH (RBC) [Entitic mass] 30.2 pg 27.0-32.0 [facility] Work Phone: Nucleated RBC/100 WBC (Bld) [Ratio] 0 % 0-5 [facility] Work Phone: MCHC Auto (RBC) [Mass/Vol]on 01-19-2022 MCHC (RBC) [Mass/Vol] 32.0 g/dL 32-36 [facility] Work Phone: No Panel Informationon 01-19 Estimated Creatinine Clearance Calc 19.30 ml/min [facility] Work Phone: Estimated GFR (MDRD) Amer 25 mL/min >60 [facility] Work Phone: Comment on above: GFR Calc Estimated GFR (MDRD) Non-Af Amer 20 mL/min >60 [facility] Work Phone: Comment on above: Non- GFR Calc Thyroid Stimulating Hormone (TSH) 1.14 uIU/mL 0.358-3.74 [facility] Work Phone: Platelets bldon 01-19-2022 Platelets (Bld) [#/Vol] 98 10*3/uL 150-450 [facility] Work Phone: Review by pathologiston Pathologist review Yunior (Unsp spec) [Interp] September [facility] Work Phone: Serum or plasma calcium satish urement (mass/volume)on 01-19-2022 Calcium [Mass/Vol] 8.7 mg/dL 8.5-10.1 [facility] Work Phone: Serum or plasma creatinine m easurement (mass/volume)on 01-19-2022 Creatinine [Mass/Vol] 3.20 mg/dL 0.70-1.30 [facility] Work Phone: Comment on above: The validity of the calculated GFR & GFRAA in patients over 70 years has not been determined. Clinical correlation is essential. Serum or plasma urea nitroge n measurement (mass/volume)on 01-19-2022 Urea nitrogen [Mass/Vol] 30 mg/dL 7-18 [facility] Work Phone: Thin prep Papanicolaou smear with manual screeningon 01-19-2022 Thin prep Papanicolaou smear with manual screening 8 5-15 [facility] Work Phone: Absolute lymphocyte counton 01-18-2022 Lymphocytes Auto (Unsp spec) [#/Vol] 0.27 10*3/uL 0.83-4.51 [facility] Work Phone: Basophil percentageon 2021 Basophils/100 WBC (Bld) 0.4 % 0-1 [facility] Work Phone: Bilirubin [Mass/Vol] 0.50 mg/dL 0.20-1.00 [facility] Work Phone: Comment on above: For patients on eltr ombopag therapy, use of Dimension [place] TBIL is not recommended. Chloride [Moles/Vol] 106 mmol/L 98-107 [facility] Work Phone: Eosinophils/100 WBC (Bld) 1.1 % 0-5 [facility] Work Phone: Glucose [Mass/Vol] 111 mg/dL 74-106 [facility] Work Phone: Comment on above: Fasting Glucose resu lt from 100 to 125 mg/dL suggests IMPAIRED HOMEOSTASIS per A.D.A. criteria. Lactate [Moles/Vol] 0.9 mmol/L 0.4-2.0 [facility] Work Phone: Neutrophils (Bld) [#/Vol] 3.8 10*3/uL 2.0-7.7 [facility] Work Phone: Neutrophils/100 WBC (Bld) 82.1 % 47-70 [facility] Work Phone: Potassium [Moles/Vol] 5.3 mmol/L 3.5-5.1 [facility] Work Phone: Protein [Mass/Vol] 6.9 g/dL 6.4-8.2 [facility] Work Phone: Sodium [Moles/Vol] 137 mmol/L 136-145 [facility] Work Phone: WBC (Bld) [#/Vol] 4.6 10*3/uL 4.4-11.0 [facility] Work Phone: Basophil percentage 0 SEEN /hpf 0-[address] [facility] Work Phone: Bilirubin Test strip Ql (U)o n 01-18-2022 Bilirubin Ql (U) Negative Negative [facility] Work Phone: Blood erythrocytes count (nu mber/volume)on 01-18-2022 RBC (Bld) [#/Vol] 4.33 10*6/uL 4.6-6.2 [facility] Work Phone: Blood hemoglobin measurement (mass/volume)on 01-18-2022 Hemoglobin (Bld) [Mass/Vol] 13.4 g/dL 13.0-16.5 [facility] Work Phone: Blood lymphocytes/100 leukoc yteson 01-18-2022 Lymphocytes/100 WBC (Bld) 5.8 % 19-41 [facility] Work Phone: Blood manual differential co mment interpretation (narrative result)on 01-18-2022 Manual differential comment Yunior (Bld) [Interp] SCANNED [facility] Work Phone: Comment on above: LYMPHOPENIA NOTED Blood monocytes/100 leukocyt eson 01-18-2022 Monocytes/100 WBC (Bld) 10.0 % 0-10 [facility] Work Phone: Blood platelet mean volumeon 01-18-2022 Platelet mean volume (Bld) [Entitic vol] 10.3 fL 6.2-12.0 [facility] Work Phone: Determination of erythrocyte mean corpuscular volume (MCV)on 01-18-2022 MCV (RBC) [Entitic vol] 94.9 fL 80-94 [facility] Work Phone: Hematocrit Auto (Bld) [Volum e fraction]on 01-18-2022 Hematocrit (Bld) [Volume fraction] 41.1 % 40-54 [facility] Work Phone: INR in Blood by Coagulation assayon 01-18-2022 INR Coag (Bld) [Relative time] 1.1 {INR} [facility] Work Phone: Ketones Test strip Ql (U)on 01-18-2022 Ketones Ql (U) Negative Negative [facility] Work Phone: Laboratory - Chemistry and C hemistry - challengeon 01-18-2022 ALP [Catalytic activity/Vol] 114 U/L 45-117 [facility] Work Phone: ALT [Catalytic activity/Vol] 16 U/L 16-61 [facility] Work Phone: CO2 [Moles/Vol] 25.0 mmol/L 21.0-32.0 [facility] Work Phone: Globulin (S) [Mass/Vol] 3.0 g/dL 2.2-4.2 [facility] Work Phone: Urea nitrogen/Creatinine [Mass ratio] 9.0 mg/mg 10-20 [facility] Work Phone: Laboratory - Coagulationon 0 01-18-2022 aPTT Coag (Bld) [Time] 30.2 s 24.1-36.2 [facility] Work Phone: PT Coag (PPP) [Time] 13.8 s 11.7-14.9 [facility] Work Phone: Laboratory - Hematology and Cell countson 01-18-2022 Erythrocyte distribution width (RBC) [Entitic vol] 47.4 fL 35.1-43.9 [facility] Work Phone: Erythrocyte distribution width (RBC) [Ratio] 13.4 % 11.6-14.6 [facility] Work Phone: Immature granulocytes/100 WBC (Bld) 0.600 % 0.0-0.9 [facility] Work Phone: Comment on above: IG% - Immature Granu locytes (promyelocytes, myelocytes and metamyelocytes) > 1% indicates that a LEFT SHIFT is Present. MCH (RBC) [Entitic mass] 30.9 pg 27.0-32.0 [facility] Work Phone: Nucleated RBC/100 WBC (Bld) [Ratio] 0 % 0-5 [facility] Work Phone: MCHC Auto (RBC) [Mass/Vol]on 01-18-2022 MCHC (RBC) [Mass/Vol] 32.6 g/dL 32-36 [facility] Work Phone: Mucus LM Ql (Urine sed)on Mucus Ql (Urine sed) 0 SEEN /hpf [facility] Work Phone: Nitrite Test strip Ql (U)on 01-18-2022 Nitrite Ql (U) Negative Negative [facility] Work Phone: No Panel Informationon 01-18 Estimated Creatinine Clearance Calc 16.79 ml/min [facility] Work Phone: Estimated GFR (MDRD) Amer 23 mL/min >60 [facility] Work Phone: Comment on above: GFR Calc Estimated GFR (MDRD) Non-Af Amer 19 mL/min >60 [facility] Work Phone: Comment on above: Non- GFR Calc Platelets bldon 01-18-2022 Platelets (Bld) [#/Vol] 131 10*3/uL 150-450 [facility] Work Phone: Protein Test strip Ql (U)on 01-18-2022 Protein Ql (U) 100 mg/dl Negative [facility] Work Phone: Serum or plasma albumin satish urement (mass/volume)on 01-18-2022 Albumin [Mass/Vol] 3.9 g/dL 3.2-5.0 [facility] Work Phone: Serum or plasma albumin/glob ulin mass ratioon 01-18-2022 Albumin/Globulin [Mass ratio] 1.3 {ratio} 0.9-2.4 [facility] Work Phone: Serum or plasma calcium satish urement (mass/volume)on 01-18-2022 Calcium [Mass/Vol] 9.0 mg/dL 8.5-10.1 [facility] Work Phone: Serum or plasma creatinine m easurement (mass/volume)on 01-18-2022 Creatinine [Mass/Vol] 3.43 mg/dL 0.70-1.30 [facility] Work Phone: Comment on above: The validity of the calculated GFR & GFRAA in patients over 70 years has not been determined. Clinical correlation is essential. Serum or plasma urea nitroge n measurement (mass/volume)on 01-18-2022 Urea nitrogen [Mass/Vol] 31 mg/dL 7-18 [facility] Work Phone: Squamous epithelial cells de tection in urine sediment by light microscopyon 01-18-2022 Epithelial cells.squamous LM Ql (Urine sed) 0 SEEN /hpf 0-5 [facility] Work Phone: Thin prep Papanicolaou smear with manual screeningon 01-18-2022 Thin prep Papanicolaou smear with manual screening 13 U/L 15-37 [facility] Work Phone: Thin prep Papanicolaou smear with manual screening 6 5-15 [facility] Work Phone: Urine blood detectionon RBC Ql (U) 10 /ul Negative [facility] Work Phone: RBC Ql (U) 0 SEEN /hpf 0-5 [facility] Work Phone: Urine clarityon 01-18-2022 Clarity (U) Clear Clear [facility] Work Phone: Urine color determinationon 01-18-2022 Color (U) Yellow Yellow [facility] Work Phone: Urine glucose detectionon Glucose Ql (U) Normal mg/dl Normal [facility] Work Phone: Urine leukocyte esterase det ection by dipstickon 01-18-2022 Leukocyte esterase Test strip Ql (U) Negative Negative [facility] Work Phone: Urine pHon 01-18-2022 pH (U) 8.0 [pH] 5.0 - 8.0 [facility] Work Phone: Urine sediment bacteria coun t by microscopy (number/high power field)on 01-18-2022 Bacteria LM.HPF (Urine sed) [#/Area] RARE /hpf None Seen [facility] Work Phone: Urine specific gravity measu rementon 01-18-2022 Specific gravity (U) [Rel density] 1.010 1.002-1.030 [facility] Work Phone: Urobilinogen Auto test strip Ql (U)on 01-18-2022 Urobilinogen Ql (U) Normal mg/dl Normal [facility] Work Phone: HepB SurfaceAb,Quanton 07-12 HepB SurfaceAb,Quant <8.00 Normal <8.00 [facility] Comment on above: Performed By: #### P THI #### [facility] [address], [place] [address] Hepatitis B Surf. Agon 07-12 Hepatitis B Surf. Ag NEGAT Normal Negative [facility] Comment on above: Performed By: #### P THI #### [facility] [address] [place], [place] [address] PTH, Intacton 07-12-2021 PTH, Intact 99 pg/mL High 15-65 [facility] Comment on above: Performed By: #### P THI #### [facility] [address] [place], [place] [address] Proteinase 3 Abon 07-12-2021 Proteinase 3 Ab 1.1 AI High <1.0 [facility] Comment on above: Performed By: #### P THI #### [facility] [address], [place] [address] C3 Complementon 07-11-2021 C3 Complement 125 mg/dL Normal 86-166 [facility] Comment on above: Performed By: #### P THI #### [facility] [address] [place] [phone] C4 Complementon 07-11-2021 C4 Complement 18 mg/dL Normal 13-46 [facility] Comment on above: Performed By: #### P THI #### [facility] [address] [place] [address] PSA, Freeon 06-16-2021 PSA, Diagnostic 11.62 ng/mL High <2.60 [facility] Comment on above: Performed By: #### P SATF #### [facility] [address] [place] [address] PSA, Percent Free DO NOT OR 25 % Normal [facility] Comment on above: Performed By: #### P SATF #### [facility] [address] [place] [phone] PTH, Intacton 05-30-2021 PTH, Intact 123 pg/mL High 15-65 [facility] Comment on above: Performed By: #### P THI #### [facility] [address] [place] [phone] Proteinase 3 Abon 05-30-2021 Proteinase 3 Ab 1.1 AI High <1.0 [facility] Comment on above: Performed By: #### P THI #### [facility] [address] [place] [phone] C3 Complementon 05-29-2021 C3 Complement 114 mg/dL Normal 86-166 [facility] Comment on above: Performed By: #### H BSAG, C4COMP, AHBSQ, C3COMP #### [facility] [address] [place] [address] #### ANCAC #### [facility] [address] [place] [address] C4 Complementon 05-29-2021 C4 Complement 17 mg/dL Normal 13-46 [facility] Comment on above: Performed By: #### H BSAG, C4COMP, AHBSQ, C3COMP #### [facility] [address] [place], [place] [address] #### ANCAC #### [facility] [address], [place] [address] HepB SurfaceAb,Quanton 05-29 HepB SurfaceAb,Quant <8.00 Normal <8.00 [facility] Comment on above: Performed By: #### P THI #### [facility] [address], [place] [address] Hepatitis B Surf. Agon 05-29 Hepatitis B Surf. Ag NEGAT Normal Negative [facility] Comment on above: Performed By: #### P THI #### [facility] [address] [place], [place] [address] PTH, Intacton 03-03-2021 PTH, Intact Normal 15-65 [facility] Comment on above: Result Comment: Unab le to assay. Specimen too old to perorm test. Account Credited Performed By: #### P THI #### [facility] [address] [place], [place] [address] C3 Complementon 02-28-2021 C3 Complement 124 mg/dL Normal 86-166 [facility] Comment on above: Performed By: #### A NCAC #### [facility] [address] [place], [place] [address] #### C3COMP, C4COMP #### [facility] [address] [place], [place] [address] C4 Complementon 02-28-2021 C4 Complement 19 mg/dL Normal 13-46 [facility] Comment on above: Performed By: #### A NCAC #### [facility] [address] [place], [place] [address] #### C3COMP, C4COMP #### [facility] [address], [place] [id number] Proteinase 3 Abon 02-28-2021 Proteinase 3 Ab 1.2 AI High <1.0 [facility] Comment on above: Performed By: #### A NCAC #### [facility] [address] [place] [address] #### C3COMP, C4COMP #### [facility] [address] [place] [address] Urea Nitrogen,Ur,Ranon 02-28 Urea nitrogen [Mass/Vol] 483 mg/dL Normal 140-1500 [facility] Comment on above: Performed By: #### U UNR #### [facility] [address] [place] [address] Op Noteon 02-20-2021 Op Note PATIENT: FRANKLIN [...] room in stable condition. Diskriter Job ID: [id number] Rambo Jade MD DOD:02/20/2021 11:57 A AMBROSIO/mary DOT:02/20/2021 01:26 P Job Number: [id number] Document Number: [id number] cc: Rambo Jade MD [facility] [address] [facility] [address] Normal [facility] Basic Metabolic Panelon 09- Anion gap [Moles/Vol] 4 mmol/L Normal 3-13 [facility] Comment on above: Performed By: #### H GHCT, CMP3 #### [place] [address] [place] [address] Calcium [Mass/Vol] 9.0 mg/dL Normal 8.4-10.4 [facility] Comment on above: Performed By: #### H GHCT, CMP3 #### [facility] [address], [place] CO2 [Moles/Vol] 27 mmol/L Normal 22-30 [facility] Comment on above: Performed By: #### H GHCT, CMP3 #### [facility] [address], [place] Glucose [Mass/Vol] 94 mg/dL Normal 70-100 [facility] Comment on above: Performed By: #### H GHCT, CMP3 #### [facility] [address], [place] Urea nitrogen [Mass/Vol] 36 mg/dL High 7-17 [facility] Comment on above: Performed By: #### H GHCT, CMP3 #### [facility] [address], [place] Creatinine [Mass/Vol] 3.00 mg/dL High 0.52-1.25 [facility] Comment on above: Performed By: #### H GHCT, CMP3 #### [facility] [address], [place] GFR/1.73 sq M.predicted among blacks MDRD (S/P/Bld) [Vol rate/Area] 22.6 mL/min/{1.73_m2} Abnormal >60 [facility] Comment on above: Performed By: #### H GHCT, CMP3 #### [facility] [address], [place] GFR/1.73 sq M.predicted among non-blacks MDRD (S/P/Bld) [Vol rate/Area] 19.5 mL/min/{1.73_m2} Abnormal >60 [facility] Comment on above: Result Comment: KDIG [...] tubular creatinine secretion. Performed By: #### H ISACC TAYLOR3 #### [address] Chloride [Moles/Vol] 106 mmol/L Normal 98-107 [facility] Comment on above: Performed By: #### H ISACC TAYLOR3 #### [address] Potassium [Moles/Vol] 5.2 mmol/L High 3.5-5.1 [facility] Comment on above: Performed By: #### H ISACC TAYLOR3 #### [address] Sodium [Moles/Vol] 137 mmol/L Normal 135-145 [facility] Comment on above: Performed By: #### H ISACC TAYLOR3 #### [address] Hemogramon 02-14-2021 Erythrocyte distribution width (RBC) [Ratio] 14.5 % Normal 11.5-14.5 [facility] Comment on above: Performed By: #### H ISACC TAYLOR3 #### [address] Hematocrit (Bld) [Volume fraction] 37.7 % Low 40.0-52.0 [facility] Comment on above: Performed By: #### H ISACC TAYLOR3 #### [address] Hemoglobin (Bld) [Mass/Vol] 12.5 g/dL Low 13.0-18.0 [facility] Comment on above: Performed By: #### H GHCT, CMP3 #### [facility] [address], [place] MCH (RBC) [Entitic mass] 31.4 pg Normal 26.0-34.0 [facility] Comment on above: Performed By: #### H GHCT, CMP3 #### [facility] [address], [place] MCHC 33.1 % Normal 32.0-36.0 [facility] Comment on above: Performed By: #### H GHCT, CMP3 #### [facility] [address], [place] MCV (RBC) [Entitic vol] 95.1 fL Normal 80.0-98.0 [facility] Comment on above: Performed By: #### H GHCT, CMP3 #### [place] [address] [address] [place], [place] Platelet mean volume (Bld) [Entitic vol] 7.9 fL Normal 7.4-10.4 [facility] Comment on above: Performed By: #### H GHCT, CMP3 #### [facility] [address], [place] Platelets (Bld) [#/Vol] 149 10*3/uL Normal 140-440 [facility] Comment on above: Performed By: #### H GHCT, CMP3 #### [facility] [address], [place] RBC (Bld) [#/Vol] 3.97 10*6/uL Low 4.40-5.90 [facility] Comment on above: Performed By: #### H GHCT, CMP3 #### [facility] [address], [place] WBC (Bld) [#/Vol] 4.6 10*3/uL Normal 3.6-10.7 [facility] Comment on above: Performed By: #### H GHCT, CMP3 #### [facility] [address], [place] VL Vessel Map Pre Dialy Acc Lc Up Harleigh 01-19-2021 VL Vessel Map Pre Dialy Acc Lc Up Ext Patient Name: FRANKLIN BURTON Ultrasound ACCESSION EXAM DATE/TIME PROCEDURE ORDERING PROVIDER [id number] 01/19/2021 16:29 EDT VL Vessel Map Pre Antwon FANG SMALLWOOD Acc Lc Up Ext CPT code 32963 Reason For Exam (VL Vessel Map Pre Dialy Acc Lc Up Ext) encounter for preprocedural examination, chronic kidney disease, stage 4 severe Report [facility] ----- Preoperative Hemodialysis Access Mapping Patient Josephine, : 1945 Study 01/19/2021 Name: Franklin Abdi (75yrs) Date: Patient [id number] Age: 75 Account: [id number] ID: Gender: M Loc: BP: Ordering Physician: Fang Smallwood Pest [employer] Service Representative: Sanjana Wilcox RVT Interpreting Physician: Usman Gold MD ----- Location: [address] ----- Indications: End stage kidney disease. ----- Conclusions 1. Normal arterial inflow involving the right upper extremity and left upper extremity. 2. The right cephalic vein from the wrist to the upper arm and right basilic vein above the elbow demonstrate a diameter suitable for vascular reconstruction. . 3. The left cephalic and left basilic veins above the elbow demonstrate a diameter suitable for vascular reconstruction. . ----- History: Risk factors: Former tobacco use. Hypertension. Obese. Age over 65 years. ----- Study data: Upper extremity evaluation for hemodialysis access. Grayscale 2D imaging, color Doppler imaging, and spectral Doppler Ultrasound Report analysis. Location: Vascular laboratory. Objective: Pre-procedural evaluation for dialysis access surgery. Procedure: A vascular evaluation was performed with the patient in the supine position. Images were obtained using a [employer] E9 vascular ultrasound machine. ----- Arterial flow: + +- +--------- --+ +Location +Diameter AP+PSV(cm/sec)+ + +- +--------- --+ +R axillary , mid +1.09 cm +72 + + +- +--------- --+ +R brachial , distal+0.47 cm +76 + + +- +--------- --+ +R brachial , mid +0.42 cm +78 + + +- +--------- --+ +R brachial , prox +0.46 cm +89 + + +- +--------- --+ +R radial , distal +0.29 cm +55 + + +- +--------- --+ +R radial , mid +0.33 cm +42 + + +- +--------- --+ +R radial , prox +0.36 cm +53 + + +- +--------- --+ +L axillary , mid +0.98 cm +44 + + +- +--------- --+ +L brachial , distal+0.58 cm +47 + + +- +--------- --+ +L brachial , mid +0.51 cm +50 + + +- +--------- --+ +L brachial , prox +0.47 cm +74 + + +- +--------- --+ +L radial , distal +0.27 cm +52 + + +- +--------- --+ +L radial , mid +0.32 cm +52 + + +- +--------- --+ +L radial , prox +0.29 cm +55 + + +- +--------- --+ Venous flow and imaging: + +-------+ ----+ +Location +Overall+Properties + + +-------+ ----+ +R innominate+Patent +Spontaneous; normal augmentation + + +-------+ ----+ +R subclavian+Patent +Normal phasicity; spontaneous; normal + + + +augmentation; compressible + + +-------+ ----+ +R axillary +Patent +Normal phasicity; spontaneous; normal + + + +augmentation + + +-------+ ----+ +R brachial +Patent +Normal phasicity; spontaneous; normal + + + +augmentation; compressible + + +-------+ ----+ +R basilic +Patent +Compressible + + +-------+ ----+ +R cephalic +Patent +Compressible + + +-------+ ----+ +L innominate+Patent +Spontaneous; normal augmentation + + +-------+ ----+ +L subclavian+Patent +Normal phasicity; spontaneous; normal + Ultrasound Report + + +augmentation; compressible + + + (more content not included)... Normal [facility] Hemoglobin A1con 08-30-2020 Glucose [Mass/Vol] 120 mg/dL Normal [facility] Comment on above: Performed By: #### P THI #### [facility] [address], [place] [address] HbA1c (Bld) [Mass fraction] 5.8 % High 4.3-5.6 [facility] Comment on above: Performed By: #### P THI #### [facility] [address] [place], [place] [address] LDL-Chol, Directon 1 LDL-Chol, Direct 110 mg/dL High <100 [facility] Comment on above: Performed By: #### P THI #### [facility] [address] [place], [place] [address] VLDL Cholesterol NOTI Normal <30 [facility] Comment on above: Performed By: #### P THI #### [facility] [address] [place], [place] [address] C3 Complementon 08-08-2020 C3 Complement 118 mg/dL Normal 86-166 [facility] Comment on above: Performed By: #### P THI #### [facility] [address] [place], [place] [address] C4 Complementon 08-08-2020 C4 Complement 16 mg/dL Normal 13-46 [facility] Comment on above: Performed By: #### P THI #### [facility] [address] [place], [place] [address] PTH, Intacton 08-08-2020 PTH, Intact 103 pg/mL High 15-65 [facility] Comment on above: Performed By: #### P THI #### [facility] [address] [place] [address] Proteinase 3 Abon 08-08-2020 Proteinase 3 Ab <0.2 Normal <1.0 [facility] Comment on above: Performed By: #### P THI #### [facility] [address] [place] [address] Basic Metabolic Panelon 12-0 8-2020 Anion Gap 7 Normal [facility] Comment on above: Performed By: #### B MP3, TROPN, LACT3, HEMDF #### [address] [address] [place] [address] Calcium [Mass/Vol] 9.1 mg/dL Normal 8.4-10.4 [facility] Comment on above: Performed By: #### B MP3, TROPN, LACT3, HEMDF #### [address] [address] CO2 [Moles/Vol] 22 mmol/L Normal 22-30 [facility] Comment on above: Performed By: #### B MP3, TROPN, LACT3, HEMDF #### [address] [address] [place] [address] Glucose [Mass/Vol] 100 mg/dL Normal 70-100 [facility] Comment on above: Performed By: #### B MP3, TROPN, LACT3, HEMDF #### [address] [address] [place] [address] Urea nitrogen [Mass/Vol] 34 mg/dL High 7-20 [facility] Comment on above: Performed By: #### B MP3, TROPN, LACT3, HEMDF #### [address] Creatinine [Mass/Vol] 3.24 mg/dL High 0.52-1.25 [facility] Comment on above: Performed By: #### B MP3, TROPN, LACT3, HEMDF #### [address] GFR/1.73 sq M.predicted among blacks MDRD (S/P/Bld) [Vol rate/Area] 20.7 mL/min/{1.73_m2} Abnormal >60 [facility] Comment on above: Performed By: #### B MP3, TROPN, LACT3, HEMDF #### [address] GFR/1.73 sq M.predicted among non-blacks MDRD (S/P/Bld) [Vol rate/Area] 17.9 mL/min/{1.73_m2} Abnormal >60 [facility] Comment on above: Result Comment: KDIG [...] #### B MP3, TROPN, LACT3, HEMDF #### [address] Potassium [Moles/Vol] 4.6 mmol/L Normal 3.5-5.1 [facility] Comment on above: Performed By: #### B MP3, TROPN, LACT3, HEMDF #### [facility] [address] [place] [address] Chloride [Moles/Vol] 104 mmol/L Normal 98-107 [facility] Comment on above: Performed By: #### B MP3, TROPN, LACT3, HEMDF #### [facility] [address] [place] [address] Sodium [Moles/Vol] 133 mmol/L Low 135-145 [facility] Comment on above: Performed By: #### B MP3, TROPN, LACT3, HEMDF #### [facility] [address] [place] [address] Anion gap [Moles/Vol] 7 mmol/L [place], [place] Calcium [Mass/Vol] 9.1 mg/dL 8.4 - 10. 4 mg/dL [place], [place] Chloride [Moles/Vol] 104 mmol/L 98 - 10 7 mmol/L [place] CO2 [Moles/Vol] 22 mmol/L 22 - 30 mmol/L [place] Creatinine [Mass/Vol] 3.24 mg/dL High 0.52 - 1.25 mg/dL [place] EGFR IF NonAfrican Monegasque 17.9 mL/min Abnormal >60 [place] Comment on above: KDIGO guidelines pro [...] (S/P/Bld) [Vol rate/Area] 20.7 mL/min/{1.73_m2} Abnormal >60 [place], [place] Glucose [Mass/Vol] 100 mg/dL 70 - 100 mg/dL [place] Interpretation and review of laboratory results Abnormal [place] Potassium [Moles/Vol] 4.6 mmol/L 3.5 - 5.1 mmol/L [place] Sodium [Moles/Vol] 133 mmol/L Low 135 - 145 mmol/L [place] Urea nitrogen [Mass/Vol] 34 mg/dL High 7 - 20 mg/dL [place] Test Performed by [id number] [place] [address] COVID and Resp PCR Panelon 1 06-26-2019 SARS-CoV-2 (COVID-19) RNA SHAE+probe Ql (Unsp spec) COVID and Resp PCR Panel --> Status: F NEGATIVE: No targets were detected by the [employer] Upper Respiratory Pathogens PCR Panel. _ Expected Result: Not Detected The [employer] Upper Respiratory Pathogens PCR Panel can detect the following targets: SARS-CoV-2, Adenovirus, Coronavirus 229E, Coronavirus HKU1, Coronavirus NL63, Coronavirus OC43, Human Metapneumovirus, Human Rhinovirus/Enterovirus , Influenza A, Influenza B, Parainfluenza Virus 1, Parainfluenza Virus 2, Parainfluenza Virus 3, Parainfluenza Virus 4, Respiratory Syncytial Virus, Bordetella pertussis, Bordetella parapertussis, Chlamydia pneumoniae, Mycoplasma pneumoniae. Negative results do not preclude SARS-CoV-2 infection and should not be used as the sole basis for treatment or other patient management decisions. This assay was developed by [employer] and distributed under an Emergency Use Authorization (EUA) granted by the FDA for the qualitative detection of SARS-CoV-2 nucleic acid. Provider and patient fact sheets can be found at https://www.fda.gov/ri cornell/055336/download and https://www.fda.gov/ri cornell/333750/download. Respiratory Pathogens PCR Panel. _ Expected Result: Not Detected The [employer] Upper Respiratory Pathogens PCR Panel can detect the following targets: SARS-CoV-2, Adenovirus, Coronavirus 229E, Coronavirus HKU1, Coronavirus NL63, Coronavirus OC43, Human Metapneumovirus, Human Rhinovirus/Enterovirus , Influenza A, Influenza B, Parainfluenza Virus 1, Parainfluenza Virus 2, Parainfluenza Virus 3, Parainfluenza Virus 4, Respiratory Syncytial Virus, Bordetella pertussis, Bordetella parapertussis, Chlamydia pneumoniae, Mycoplasma pneumoniae. Negative results do not preclude SARS-CoV-2 infection and should not be used as the sole basis for treatment or other patient management decisions. This assay was developed by [employer] and distributed under an Emergency Use Authorization (EUA) granted by the FDA for the qualitative detection of SARS-CoV-2 nucleic acid. Provider and patient fact sheets can be found at [email or web address]/ri [email or web address]/[email or web address]/download and [email or web address]/ri [email or web address]/download. Normal [facility] Comment on above: Performed By: #### H [facility], [facility] #### [address] [address] CR Chest Portableon 04-25-20 20 CR Chest Portable Patient Name: FRANKLIN BURTON Diagnostic Radiology ACCESSION EXAM DATE/TIME PROCEDURE ORDERING PROVIDER [id number] 04/25/2020 13:34 EST CR Chest Portable [id number] YOSEPH GARCIA CPT code 08458 Reason For Exam (CR Chest Portable) Generalized [...] and Time: 04/25/2020 1:35 pm Signed by: SUGANO, MD, LINDA R Transcribed Date and Time: 04/25/2020 1:35 Normal [facility] Complete Urinalysison 2019 Appearance (U) Turbid Abnormal Clear [facility] Comment on above: Result Comment: . Performed By: #### C UA2 #### [facility] [address] [place], [place] Bacteria Moderate Abnormal Negative [facility] Comment on above: Result Comment: . Performed By: #### C UA2 #### [facility] [address], [place] Bilirubin,Urine Negative Normal Negative [facility] Comment on above: Result Comment: . Performed By: #### C UA2 #### [place] [address] [address] [place], [place] Color (U) Yellow Normal Lt. Yellow [facility] Comment on above: Result Comment: . Performed By: #### C UA2 #### [place] [address] [address] [place], [place] Glucose Ql (U) Normal Normal Normal (<70) [facility] Comment on above: Result Comment: . Performed By: #### C UA2 #### [facility] [address] [place], [place] Ketone,Urine Negative Normal Negative [facility] Comment on above: Result Comment: . Performed By: #### C UA2 #### [place] [address] [address] [place], [place] Leukocytes,Urine 250 Karla/uL Abnormal Negative [facility] Comment on above: Result Comment: . Performed By: #### C UA2 #### [facility] [address] [place] Mucous Threads Few Normal Negative [facility] Comment on above: Result Comment: . Performed By: #### C UA2 #### [place] [address] [address] [place], [place] Nitrites,Urine Negative Normal Negative [facility] Comment on above: Result Comment: . Performed By: #### C UA2 #### [place] [address] [address] [place], [place] Occult Blood,Urine > 1.0 Abnormal Negative [facility] Comment on above: Result Comment: . Performed By: #### C UA2 #### [facility] [address], [place] pH,Urine 5.5 Normal 5.0-8.0 [facility] Comment on above: Result Comment: . Performed By: #### C UA2 #### [facility] [address], [place] Protein (U) [Mass/Vol] 100 mg/dL Abnormal Negative [facility] Comment on above: Result Comment: . Performed By: #### C UA2 #### [place] [address] [address] [place], [place] RBC, Urine 51 - 100 Abnormal 0-2 [facility] Comment on above: Result Comment: . Performed By: #### C UA2 #### [place] [address] [address] [place], [place] Specific [place],Urine 1.013 Normal 1.005 - 1.030 [facility] Comment on above: Result Comment: . Performed By: #### C UA2 #### [place] [address] [address] [place], [place] Urobilinogen,Urine Normal Normal Normal (0-1) [facility] Comment on above: Result Comment: . Performed By: #### C UA2 #### [place] [address] [address] [place], [place] WBC, Urine 26 - 50 Abnormal 0-5 [facility] Comment on above: Result Comment: . Performed By: #### C UA2 #### [facility] [address], [place] ED Provider Noteon 0 ED Provider Note -- Attestation signed by Cornel Lozano MD at 04/25/2020 6:22 PM Emergency Medicine Attending Please see previously documented note. Cornel [facility] Patient: Franklin Burton : 1945 Date of Evaluation: 04/25/2020 ED KUSH Provider: JULIUS Lyles EDcare was supervised by Dr. lozano who independently examined and evaluated the patient. Please see their attestation note for further details. Does this patient come from an ECF, SNF, Rehab, Fci or other Congregate setting: no (If yes to above patient needs a Covid-19 test) Chief Complaint Chief Complaint Patient presents with ? Fatigue pt states he's been feeling weak for a couple weeks, this morning too weak to walk. Also c/o DUTTA, body aches and has fever 100.6. Had prostate surgery 04/06 and has been having urinary frequency but it stopped last night. KEKE Burton is a 74 y.o. male who [...] he does try to void he has small dribbles. Patient does have a history of Zach's [...] otherwise acutely negative except as in the [place]. Past History Past Medical History: Diagnosis Date ? Allergic rhinitis ? BPH (benign prostatic hyperplasia) ? CHF (congestive heart failure) (HCC) ? Chronic back pain ? Chronic kidney disease ? Compression fracture spring 2014 T12 ? Diabetes mellitus (HCC) while on steroids had high glucose ? GERD (gastroesophageal reflux disease) ? Heart failure (HCC) EF 45% ? [place] (hard of hearing) RIGHT EAR AND HAS [...] on phone: None Gets together: None Attends hinduism service: None Active member of club or organization: None Attends meetings of clubs or organizations: None Relationship status: None (more content not included)... Normal [facility] Hemogram (CBC) w/Auto Diffon 04-25-2020 Absolute Baso # 0.0 10*3/uL 0 - 0.2 10*3/uL [place] Absolute Neut # 4.1 10*3/uL 1.8 - 7 10*3/uL [place] Basophils/100 WBC (Bld) 0.7 % 0 - 2 % [place] Eosinophils (Bld) [#/Vol] 0.1 10*3/uL 0 - 0.5 10*3/uL [place] Eosinophils/100 WBC (Bld) 1.2 % 1 - 6 % [place] Erythrocyte distribution width (RBC) [Ratio] 14.8 % High 11.5 - 14.5 % [place] Granulocytes/100 WBC (Bld) 78.0 % 40 - 80 % [place] Hematocrit (Bld) [Volume fraction] 31.6 % Low 40 - 52 % [place] Hemoglobin (Bld) [Mass/Vol] 10.7 g/dL Low 13 - 18 g/dL [place] Interpretation and review of laboratory results Abnormal [place] Lymphocytes (Bld) [#/Vol] 0.6 10*3/uL Low 1 - 4.3 10*3/uL [place] Lymphocytes/100 WBC (Bld) 11.5 % Low 20 - 40 % [place] MCH (RBC) [Entitic mass] 30.5 pg 26 - 34 pg [place] MCHC (RBC) [Mass/Vol] 33.7 % 32 - 36 % [place] MCV (RBC) [Entitic vol] 90.4 fL 80 - 98 fL [place] Monocytes (Bld) [#/Vol] 0.5 10*3/uL 0 - 0.8 10*3/uL [place] Monocytes/100 WBC (Bld) 8.6 % 2 - 10 % [place] Platelet mean volume (Bld) [Entitic vol] 7.4 fL 7.4 - 10.4 fL [place] Platelets (Bld) [#/Vol] 184 10*3/uL 140 - 440 10*3/uL [place] RBC (Bld) [#/Vol] 3.50 10*6/uL Low 4.4 - 5.9 10*6/uL [place] WBC (Bld) [#/Vol] 5.3 10*3/uL 3.6 - 10.7 10*3/uL [place] Test Performed by [facility], [address] [place] [address] Hemogram w/ Autodiffon 04-25 Abs Baso Cnt 0.0 10*3/uL Normal 0.0-0.2 [facility] Comment on above: Performed By: #### B MP3, TROPN, LACT3, HEMDF #### [address] Abs Neutrophile Cnt 4.1 10*3/uL Normal 1.8-7.0 [facility] Comment on above: Performed By: #### B MP3, TROPN, LACT3, HEMDF #### [address] [address] Basophils/100 WBC (Bld) 0.7 % Normal 0.0-2.0 [facility] Comment on above: Performed By: #### B MP3, TROPN, LACT3, HEMDF #### [address] [address] Eosinophils (Bld) [#/Vol] 0.1 10*3/uL Normal 0.0-0.5 [facility] Comment on above: Performed By: #### B MP3, TROPN, LACT3, HEMDF #### [address] [place], [place] Eosinophils/100 WBC (Bld) 1.2 % Normal 1.0-6.0 [facility] Comment on above: Performed By: #### B MP3, TROPN, LACT3, HEMDF #### [place] [address] [address] [place], [place] Erythrocyte distribution width (RBC) [Ratio] 14.8 % High 11.5-14.5 [facility] Comment on above: Performed By: #### B MP3, TROPN, LACT3, HEMDF #### [address] [place] [address] [address] [place] Granulocytes/100 WBC (Bld) 78.0 % Normal 40.0-80.0 [facility] Comment on above: Performed By: #### B MP3, TROPN, LACT3, HEMDF #### [address] [address] [place] Hematocrit (Bld) [Volume fraction] 31.6 % Low 40.0-52.0 [facility] Comment on above: Performed By: #### B MP3, TROPN, LACT3, HEMDF #### [address] [place] [address] [address] [place] Hemoglobin (Bld) [Mass/Vol] 10.7 g/dL Low 13.0-18.0 [facility] Comment on above: Performed By: #### B MP3, TROPN, LACT3, HEMDF #### [address] [place] [place] Lymphocytes (Bld) [#/Vol] 0.6 10*3/uL Low 1.0-4.3 [facility] Comment on above: Performed By: #### B MP3, TROPN, LACT3, HEMDF #### [address] Lymphocytes/100 WBC (Bld) 11.5 % Low 20.0-40.0 [facility] Comment on above: Performed By: #### B MP3, TROPN, LACT3, HEMDF #### [place] [address] [address] [place] MCH (RBC) [Entitic mass] 30.5 pg Normal 26.0-34.0 [facility] Comment on above: Performed By: #### B MP3, TROPN, LACT3, HEMDF #### [facility] [address] MCHC 33.7 % Normal 32.0-36.0 [facility] Comment on above: Performed By: #### B MP3, TROPN, LACT3, HEMDF #### [place] [address] [address] [place] MCV (RBC) [Entitic vol] 90.4 fL Normal 80.0-98.0 [facility] Comment on above: Performed By: #### B MP3, TROPN, LACT3, HEMDF #### [place] [place] Monocytes (Bld) [#/Vol] 0.5 10*3/uL Normal 0.0-0.8 [facility] Comment on above: Performed By: #### B MP3, TROPN, LACT3, HEMDF #### [place] [place] Monocytes/100 WBC (Bld) 8.6 % Normal 2.0-10.0 [facility] Comment on above: Performed By: #### B MP3, TROPN, LACT3, HEMDF #### [place] [address] [address] [place] Platelet mean volume (Bld) [Entitic vol] 7.4 fL Normal 7.4-10.4 [facility] Comment on above: Performed By: #### B MP3, TROPN, LACT3, HEMDF #### [place] [address] [address] [place] Platelets (Bld) [#/Vol] 184 10*3/uL Normal 140-440 [facility] Comment on above: Performed By: #### B MP3, TROPN, LACT3, HEMDF #### [place] [address] [address] [place], [place] RBC (Bld) [#/Vol] 3.50 10*6/uL Low 4.40-5.90 [facility] Comment on above: Performed By: #### B MP3, TROPN, LACT3, HEMDF #### [address] [place] [address] [place], [place] WBC (Bld) [#/Vol] 5.3 10*3/uL Normal 3.6-10.7 [facility] Comment on above: Performed By: #### B MP3, TROPN, LACT3, HEMDF #### [address] [place] [address] [place] Lactic Acidon 04-25-2020 Lactate [Moles/Vol] 0.7 mmol/L Normal 0.7-2.0 [facility] Comment on above: Performed By: #### B MP3, TROPN, LACT3, HEMDF #### [address] [place] [address] [place], [place] Lactic Acid, Plasmaon 2019 Lactate [Moles/Vol] 0.7 mmol/L 0.7 - 2 mmol/L [place], [place] Test Performed by [facility], [address] [place] [id number] [place] [address] Troponin Ion 04-25-2020 Troponin I.cardiac [Mass/Vol] ng/mL Normal 0.000-0.034 [facility] Comment on above: Result Comment: . Performed By: #### B MP3, TROPN, LACT3, HEMDF #### [address] Troponin x1on 04-25-2020 Troponin I.cardiac [Mass/Vol] ng/mL 0 - 0.034 ng/mL [place] Comment on above: . Test Performed by [id number] [place] [address] Urinalysison 04-25-2020 Appearance (U) Turbid Abnormal Clear [place] Comment on above: . Bacteria, UA Moderate Abnormal Negative /[HPF] [place] Comment on above: . Bilirubin Urine Negative Negative mg/dL [place] Comment on above: . Color (U) Yellow Lt. Yellow NA [place] Comment on above: . Glucose, Ur Normal Normal (<70) mg/dL [place] Comment on above: . Interpretation and review of laboratory results Abnormal [place] Ketones Ql (U) Negative Negative mg/dL [place] Comment on above: . LEUKOCYTES, UA 250 Abnormal Negative Karla/uL [place] Comment on above: . Mucous Threads Few Negative /[LPF] [place] Comment on above: . Nitrite, Urine Negative Negative [place] Comment on above: . Occult Blood,Urine >1.0 Abnormal Negative mg/dL [place] Comment on above: . pH (U) 5.5 [pH] [place] Comment on above: . Protein (U) [Mass/Vol] 100 mg/dL Abnormal Negative [place] Comment on above: . RBC (U) [#/Vol] 51-100 Abnormal 0 - 2 /[HPF] [place], [place] Comment on above: . Specific [place], Urine 1.013 [place] Comment on above: . Urobilinogen, Urine Normal Normal ( 0-1) mg/dL [place] Comment on above: . WBC, UA 26-50 Abnormal 0 - 5 /[HPF] [place], [place] Comment on above: . Test Performed by [facility], [address] [place] [address] [place] XR CHEST PORTABLEon 04-25-20 Patient Name: FRANKLIN BURTON Diagnostic Radiology ACCESSION EXAM DATE/TIME PROCEDURE ORDERING PROVIDER [id number] 04/25/2020 13:34 EST CR Chest Portable [id number] YOSEPH GARCIA CPT code 49710 Reason For Exam (CR Chest Portable) Generalized [...] R Transcribed Date and Time: 04/25/2020 1:35 [place], [place] [facility] Incoming Radiology Results From [facility] - 04/25/2020 1:36 PM EST Patient Name: FRANKLIN BURTON Diagnostic Radiology ACCESSION EXAM DATE/TIME PROCEDURE ORDERING PROVIDER [id number] 04/25/2020 13:34 EST CR Chest Portable [id number] YOSEPH GARCIA CPT code 22744 Reason For Exam (CR Chest Portable) Generalized [...] R Transcribed Date and Time: 04/25/2020 1:35 [place], [place] Basic Metabolic Panelon 11-1 Anion Gap 9 Normal [facility] Comment on above: Performed By: #### B MP3 #### [address] [place] [address] Calcium [Mass/Vol] 9.1 mg/dL Normal 8.4-10.4 [facility] Comment on above: Performed By: #### B MP3 #### [address] [place] [address] [place] [address] CO2 [Moles/Vol] 24 mmol/L Normal 22-30 [facility] Comment on above: Performed By: #### B MP3 #### [facility] [address] [place] [address] Glucose [Mass/Vol] 98 mg/dL Normal 70-100 [facility] Comment on above: Performed By: #### B MP3 #### [facility] [address] [place] [address] Urea nitrogen [Mass/Vol] 37 mg/dL High 7-20 [facility] Comment on above: Performed By: #### B MP3 #### [facility] [address] [place] [address] Creatinine [Mass/Vol] 2.92 mg/dL High 0.52-1.25 [facility] Comment on above: Performed By: #### B MP3 #### [facility] [address] [place] [address] GFR/1.73 sq M.predicted among blacks MDRD (S/P/Bld) [Vol rate/Area] 23.5 mL/min/{1.73_m2} Abnormal >60 [facility] Comment on above: Performed By: #### B MP3 #### [facility] [address] [place] [address] GFR/1.73 sq M.predicted among non-blacks MDRD (S/P/Bld) [Vol rate/Area] 20.3 mL/min/{1.73_m2} Abnormal >60 [facility] Comment on above: Result Comment: KDIG [...] secretion. Performed By: #### B MP3 #### [facility] [address] [place], [place] Potassium [Moles/Vol] 5.0 mmol/L Normal 3.5-5.1 [facility] Comment on above: Performed By: #### B MP3 #### [facility] [address] [place], [place] Sodium [Moles/Vol] 137 mmol/L Normal 135-145 [facility] Comment on above: Performed By: #### B MP3 #### [facility] [address] [place] Chloride [Moles/Vol] 104 mmol/L Normal 98-107 [facility] Comment on above: Performed By: #### B MP3 #### [facility] [address] [place], [place] Anion gap [Moles/Vol] 9 mmol/L [place] Calcium [Mass/Vol] 9.1 mg/dL 8.4 - 10. 4 mg/dL [place] Chloride [Moles/Vol] 104 mmol/L 98 - 10 7 mmol/L [place] CO2 [Moles/Vol] 24 mmol/L 22 - 30 mmol/L [place] Creatinine [Mass/Vol] 2.92 mg/dL High 0.52 - 1.25 mg/dL [place] EGFR IF NonAfrican [place]onegasque 20.3 mL/min Abnormal >60 [place] Comment on above: KDIGO guidelines pro [...] (S/P/Bld) [Vol rate/Area] 23.5 mL/min/{1.73_m2} Abnormal >60 [place] Glucose [Mass/Vol] 98 mg/dL 70 - 100 mg/dL [place] Interpretation and review of laboratory results Abnormal [place] Potassium [Moles/Vol] 5.0 mmol/L 3.5 - 5.1 mmol/L [place] Sodium [Moles/Vol] 137 mmol/L 135 - 145 mmol/L [place] Urea nitrogen [Mass/Vol] 37 mg/dL High 7 - 20 mg/dL [place] Test [facility], [address] [place] [id number] [place] [address] Glucose,Bedsideon 04-06-2020 Glucose [Mass/Vol] 124 mg/dL High 70-100 [facility] Comment on above: Result Comment: Test performed by glucose meter. Results may be 10%-15% lower than serum/plasma values. (CLIA ID [id number]) Performed By: #### B GLU #### [address] [address] Op Noteon 04-06-2020 Op Note PreOp Dx [...] infection, failure of treatment,need for additional procedures, [place], stroke, embolus, DVT and . Patient understands. [...] patient will be admitted for observation. Normal [facility] POCT Glucoseon 04-06-2020 Glucose [Mass/Vol] 124 mg/dL High 70 - 100 mg/dL [place] Comment on above: Test performed by Stion ucose meter. Results may be 10%-15% lower than serum/plasma values. (CLIA ID [id number]) Interpretation and review of laboratory results Abnormal [place] Test Performed by [facility], [address] [place] [address] [place] CULTURE URINEon 03-16-2020 CULTURE URINE 1 Organism Morganell a morganii >100,000 CFU/ml For serious infections outside of the urinary tract, third generation cephalosporins may not be effective, even if test results indicate the organism is sensitive. 1 Organism Antibiotic Result Intrp Ampicillin(OLAYINKA) R Cefazolin(OLAYINKA) R Ceftriaxone(OLAYINKA) <= 1 S Cefepime(OLAYINKA) <= 1 S Aztreonam(OLAYINKA) <= 1 S Amoxicillin/Clavulanic Acid(OLAYIKNA) R Ampicillin/Sulbactam(M IC) R Pip/Tazobactam(OLAYINKA) <= 4 S Meropenem(OLAYINKA) <= 0.25 S Ciprofloxacin(OLAYINKA) <= 0.25 S Trimeth/Sulfa(OLAYINKA) >= 320 R Nitrofurantoin(OLAYINKA) R Gentamicin(OLAYINKA) <= 1 S Amikacin(OLAYINKA) <= 2 S Normal [facility] Comment on above: Order Comment: Speci men Source Comment:Urine, clean catch Performed By: #### H CLAUDIA CMP3 #### [employer] [address] [place], [place] Comp Metabolic Panelon 03-14 ALP [Catalytic activity/Vol] 58 U/L Normal 38-126 [facility] Comment on above: Performed By: #### H CLAUDIA CMP3 #### [employer] [address] [place] [address] ALT [Catalytic activity/Vol] 15 U/L Normal 0-49 [facility] Comment on above: Result Comment: The ALT test is performed by an updated assay method. Please note that the reference intervals have been changed and are now sex specific. Performed By: #### H GHCT CMP3 #### [facility] [address] [place], [place] Anion Gap 7 Normal [facility] Comment on above: Performed By: #### H GHCT CMP3 #### [facility] [address] [place], [place] AST [Catalytic activity/Vol] 22 U/L Normal 15-46 [facility] Comment on above: Performed By: #### H GHCT CMP3 #### [facility] [address] [place], [place] Bilirubin [Mass/Vol] 0.4 mg/dL Normal 0.2-1.3 [facility] Comment on above: Performed By: #### H GHCT CMP3 #### [facility] [address] [place] Calcium [Mass/Vol] 9.4 mg/dL Normal 8.4-10.4 [facility] Comment on above: Performed By: #### H GHCT CMP3 #### [facility] [address] [place], [place] CO2 [Moles/Vol] 29 mmol/L Normal 22-30 [facility] Comment on above: Performed By: #### H GHCT CMP3 #### [facility] [address] [place], [place] Glucose [Mass/Vol] 100 mg/dL Normal 70-100 [facility] Comment on above: Performed By: #### H GHCT CMP3 #### [facility] [address] [place] Protein [Mass/Vol] 6.5 g/dL Normal 6.3-8.2 [facility] Comment on above: Performed By: #### H GHCT CMP3 #### [facility] [address] [place] Urea nitrogen [Mass/Vol] 36 mg/dL High 7-20 [facility] Comment on above: Performed By: #### H GHCT CMP3 #### [facility] [address] [place], [place] Creatinine [Mass/Vol] 3.46 mg/dL High 0.52-1.25 [facility] Comment on above: Performed By: #### H GHCT CMP3 #### [facility] [address] [place], [place] GFR/1.73 sq M.predicted among blacks MDRD (S/P/Bld) [Vol rate/Area] 19.1 mL/min/{1.73_m2} Abnormal >60 [facility] Comment on above: Performed By: #### H GHCT, CMP3 #### [facility] [address] [place] GFR/1.73 sq M.predicted among non-blacks MDRD (S/P/Bld) [Vol rate/Area] 16.5 mL/min/{1.73_m2} Abnormal >60 [facility] Comment on above: Result Comment: KDIG [...] Performed By: #### H GHCT CMP3 #### [facility] [address] [place] Albumin [Mass/Vol] 3.9 g/dL Normal 3.5-5.0 [facility] Comment on above: Performed By: #### H GHCT, CMP3 #### [facility] [address] [place] Chloride [Moles/Vol] 103 mmol/L Normal 98-107 [facility] Comment on above: Performed By: #### H GHCT, CMP3 #### [facility] [address] [place], [place] Potassium [Moles/Vol] 5.3 mmol/L High 3.5-5.1 [facility] Comment on above: Performed By: #### H GHCT, CMP3 #### [facility] [address] [place], [place] Sodium [Moles/Vol] 140 mmol/L Normal 135-145 [facility] Comment on above: Performed By: #### H GHCT, CMP3 #### [facility] [address] [place], [place] Comprehensive Metabolic Pane jase 03-14-2020 Albumin [Mass/Vol] 3.9 g/dL 3.5 - 5 g/dL [place] ALP [Catalytic activity/Vol] 58 U/L 38 - 126 U/L [place] ALT [Catalytic activity/Vol] 15 U/L 0 - 49 U/L [place] Comment on above: The ALT test is perf ormed by an updated assay method. Please note that the reference intervals have been changed and are now sex specific. Anion gap [Moles/Vol] 7 mmol/L [place] AST [Catalytic activity/Vol] 22 U/L 15 - 46 U/L [place] Bilirubin Ql (U) 0.4 mg/dL 0.2 - 1.3 mg/dL [place] Calcium [Mass/Vol] 9.4 mg/dL 8.4 - 10. 4 mg/dL [place] Chloride [Moles/Vol] 103 mmol/L 98 - 10 7 mmol/L [place] CO2 [Moles/Vol] 29 mmol/L 22 - 30 mmol/L [place] Creatinine [Mass/Vol] 3.46 mg/dL High 0.52 - 1.25 mg/dL [place] EGFR IF NonAfrican [place] 16.5 mL/min Abnormal >60 [place] Comment on above: KDIGO guidelines pro [...] (S/P/Bld) [Vol rate/Area] 19.1 mL/min/{1.73_m2} Abnormal >60 [place] Glucose [Mass/Vol] 100 mg/dL 70 - 100 mg/dL [place] Interpretation and review of laboratory results Abnormal [place] Potassium [Moles/Vol] 5.3 mmol/L High 3.5 - 5.1 mmol/L [place] Protein [Mass/Vol] 6.5 g/dL 6.3 - 8.2 g/dL [place] Sodium [Moles/Vol] 140 mmol/L 135 - 145 mmol/L [place] Urea nitrogen [Mass/Vol] 36 mg/dL High 7 - 20 mg/dL [place] Test Performed by [facility], [address] [place] [id number] [place] [address] Hemoglobin AND Hematocriton 03-14-2020 Hematocrit (Bld) [Volume fraction] 32.5 % Low 40.0-52.0 [facility] Comment on above: Performed By: #### H ISACC TAYLOR3 #### [facility] [address] [address] Hemoglobin (Bld) [Mass/Vol] 10.9 g/dL Low 13.0-18.0 [facility] Comment on above: Performed By: #### H GHCT, CMP3 #### [address] [address] Hemoglobin and Hematocrit, B loodon 03-14-2020 Hematocrit (Bld) [Volume fraction] 32.5 % Low 40 - 52 % [place] Hemoglobin (Bld) [Mass/Vol] 10.9 g/dL Low 13 - 18 g/dL [place] Interpretation and review of laboratory results Abnormal [place] Test Performed by [address] [address] [place] Basic Metabolic Panelon 07-2 Anion gap [Moles/Vol] 7 mmol/L [place] Calcium [Mass/Vol] 8.4 mg/dL 8.4 - 10. 4 mg/dL [place] CO2 [Moles/Vol] 18 mmol/L Low 22 - 30 mmol/L [place] Creatinine [Mass/Vol] 3.6 mg/dL High 0.52 - 1.25 mg/dL [place] EGFR IF NonAfrican Monegasque 15.8 mL/min Abnormal >60 [place], [place] Comment on above: KDIGO guidelines pro [...] (S/P/Bld) [Vol rate/Area] 18.3 mL/min/{1.73_m2} Abnormal >60 [place], [place] Glucose [Mass/Vol] 153 mg/dL High 70 - 100 mg/dL [place] Interpretation and review of laboratory results Abnormal [place] Potassium [Moles/Vol] 4.8 mmol/L 3.5 - 5.1 mmol/L [place] Sodium [Moles/Vol] 135 mmol/L 135 - 145 mmol/L [place] Urea nitrogen [Mass/Vol] 67 mg/dL High 7 - 20 mg/dL [place] Test Performed by [address] [address] [place] Anion gap [Moles/Vol] 6 mmol/L [place] Calcium [Mass/Vol] 8.5 mg/dL 8.4 - 10. 4 mg/dL [place] CO2 [Moles/Vol] 20 mmol/L Low 22 - 30 mmol/L [place] Creatinine [Mass/Vol] 3.65 mg/dL High 0.52 - 1.25 mg/dL [place] EGFR IF NonAfrican [place]onegasque 15.5 mL/min Abnormal >60 [place], [place] Comment on above: KDIGO guidelines pro [...] (S/P/Bld) [Vol rate/Area] 18.0 mL/min/{1.73_m2} Abnormal >60 [place] Glucose [Mass/Vol] 142 mg/dL High 70 - 100 mg/dL [place] Potassium [Moles/Vol] 5.4 mmol/L High 3.5 - 5.1 mmol/L [place] Sodium [Moles/Vol] 134 mmol/L Low 135 - 145 mmol/L [place] Urea nitrogen [Mass/Vol] 68 mg/dL High 7 - 20 mg/dL [place] CBCon 12-15-2019 Erythrocyte distribution width (RBC) [Ratio] 19.8 % High 11.5 - 14.5 % [place] Hematocrit (Bld) [Volume fraction] 32.7 % Low 40 - 52 % [place] Hemoglobin (Bld) [Mass/Vol] 11.0 g/dL Low 13 - 18 g/dL [place] Interpretation and review of laboratory results Abnormal [place] MCH (RBC) [Entitic mass] 29.1 pg 26 - 34 pg [place] MCHC (RBC) [Mass/Vol] 33.7 % 32 - 36 % [place] MCV (RBC) [Entitic vol] 86.4 fL 80 - 98 fL [place] Platelet mean volume (Bld) [Entitic vol] 7.9 fL 7.4 - 10.4 fL [place] Platelets (Bld) [#/Vol] 81 10*3/uL Low 140 - 440 10*3/uL [place] RBC (Bld) [#/Vol] 3.78 10*6/uL Low 4.4 - 5.9 10*6/uL [place] WBC (Bld) [#/Vol] 7.1 10*3/uL 3.6 - 10.7 10*3/uL [place] Test Performed by [address] [address] [place] Metabolic Panelon 12-15-2019 Chloride [Moles/Vol] 109 mmol/L High 98 - 10 7 mmol/L [place] Otheron 12-15-2019 Interpretation and review of laboratory results Abnormal [facility] [place] Test Performed by [facility], [place] [address] [place] POCT Glucoseon 12-15-2019 Glucose [Mass/Vol] 157 mg/dL High 70 - 100 mg/dL [facility] [place] [place] Comment on above: Test performed by gl ucose meter. Results may be 10%-15% lower than serum/plasma values. (CLIA ID [id number]) Interpretation and review of laboratory results Abnormal [place], [place] Test Performed by [employer], [facility] [place] [address] [facility] [place] [place] Glucose [Mass/Vol] 136 mg/dL High 70 - 100 mg/dL [facility] [place] Comment on above: Test performed by gl ucose meter. Results may be 10%-15% lower than serum/plasma values. (CLIA ID [id number]) Glucose [Mass/Vol] 191 mg/dL High 70 - 100 mg/dL [facility] [place] Comment on above: Test performed by gl ucose meter. Results may be 10%-15% lower than serum/plasma values. (CLIA ID [id number]) Interpretation and review of laboratory results Abnormal [place], [place] Test Performed by [employer], [place] [address] [place] Add On Lab Teston 12-14-2019 Sodium [Moles/Vol] Accepted [facility] [place] [place] Comment on above: Specimen available & acceptable for analysis. ECHO Pharmacological Stress Imagingon 12-14-2019 James, [facility] Incoming Cardiology Results From [facility] - 12/14/2019 3:49 PM EDT STRESS ECHOCARDIOGRAM Dobutamine PATIENT: Franklin Burton STUDY DATE: 12/14/2019 L : 1945 AGE: 74 HT/WT: 167.6 cm (66 88.5 kg (194.6 in) lb) GENDER: M BP: 138 / 97 LOCATION: [facility] PATIENT Observation main STATUS: *ORDERING PHYSICIAN: * Angelia Hinson *SUPERVISING PHYSICIAN: * José Miguel Casanova, *RN: * Keri Pleitez RN MD *READING PHYSICIAN: * José Miguel Branch, *ANIMAL CARE ATTENDANT: * ROSMERY Delacruz DO, [facility] Ban [facility] ----- INDICATIONS: (Chest pain). ----- HISTORY: Renal disease. Last Calcium Channel Richy taken 12/13/2019 08:00 AM Tobacco use former ROYAL, GERD, Wegeners glomerulernephritis Diabetic insulin dependent Medications: Insulin. Allergies: No known allergies. Patient is NPO per policy. Hemoglobin, potassium and/or troponin x2 are within policy guidelines ----- CONCLUSIONS SUMMARY: 1. Normal study after pharmacologic [...] disks. The estimated ejection fraction is 60%. ----- STUDY DATA: Stress echocardiogram. Procedure: Initial setup. A baseline ECG was recorded. Surface ECG leads and blood pressure measurements were monitored. Image quality was good. Dobutamine stress test. Dobutamine was administered by intravenous infusion at an initial rate of 10 mcg/kg/min; the rate was advanced to a final rate of 20 mcg/kg/min. Heart rate response was augmented by the addition of hand nail expert. The infusion was terminated after achieving the [...] [facility] ----- FINDINGS LEFT VENTRICLE: The cavity size is [...] ectopy. Normal sinus rhythm. STRESS PROTOCOL: + --+---+ +- ----+ +Stage +HR +BP +Symptoms + + --+---+ +- ----+ +Baseline +101+136/86 (103) +5/10 Lower back pain. + + --+---+ +- ----+ +Dobutamine 10 ug/kg/min+114+136/86 (103) + ------+ + --+---+ +- ----+ +Peak stress +125+153/93 (113) +7/10 lower back pain. + + --+---+ +- ----+ +Recovery; 2 min +139+141/99 (113) +Subsiding. + + --+---+ +- ----+ +Late recovery +99 +140/104 (116)+Lower back pain continues + + + + +that patient states is his + + + + +bladder/kidneys. + + --+---+ +- ----+ STRESS RESULTS: There is an appropriate blood pressure response to stress. The rate-pressure product for the peak heart rate and blood pressure was 52853 mm Hg/min. Stress testing did not produce [...] There is no evidence for stress-induced ischemia. ----- Measurements Value 11/07/2016 Reference Ascending aorta ID, [...] Electronically signed by José Miguel Branch DO, FS, [facility] 12/14/2019 15:49 Prior Signatures: [facility], [place] STRESS ECHOCARDIOGRA M Dobutamine PATIENT: Franklin Burton STUDY DATE: 12/14/2019 [facility] [id number] : 1945 AGE: 74 HT/WT: 167.6 cm (66 88.5 kg (194.6 in) lb) GENDER: M BP: 138 / 97 LOCATION: [facility] PATIENT Observation main STATUS: *ORDERING PHYSICIAN: * Angelia Hinson *SUPERVISING PHYSICIAN: * José Miguel Casanova, *RN: * Keri Pleitez RN MD *READING PHYSICIAN: * José Miguel Branch, *ANIMAL CARE ATTENDANT: * ROSMERY Delacruz DO, [facility] ----- INDICATIONS: (Chest pain). ----- HISTORY: Renal disease. Last Calcium Channel Richy taken 12/13/2019 08:00 AM Tobacco use former ROYAL, GERD, Wegeners glomerulernephritis Diabetic insulin dependent Medications: Insulin. Allergies: No known allergies. Patient is NPO per policy. Hemoglobin, potassium and/or troponin x2 are within policy guidelines ----- CONCLUSIONS SUMMARY: 1. Normal study after pharmacologic [...] disks. The estimated ejection fraction is 60%. ----- STUDY DATA: Stress echocardiogram. Procedure: Initial setup. A baseline ECG was recorded. Surface ECG leads and blood pressure measurements were monitored. Image quality was good. Dobutamine stress test. Dobutamine was administered by intravenous infusion at an initial rate of 10 mcg/kg/min; the rate was advanced to a final rate of 20 mcg/kg/min. Heart rate response was augmented by the addition of hand nail expert. The infusion was terminated after achieving the [...] The patient was transferred to the telemetry [facility]. ----- FINDINGS LEFT VENTRICLE: The cavity size is [...] ectopy. Normal sinus rhythm. STRESS PROTOCOL: + --+---+ +- ----+ +Stage +HR +BP +Symptoms + + --+---+ +- ----+ +Baseline +101+136/86 (103) +5/10 Lower back pain. + + --+---+ +- ----+ +Dobutamine 10 ug/kg/min+114+136/86 (103) + ------+ + --+---+ +- ----+ +Peak stress +125+153/93 (113) +7/10 lower back pain. + + --+---+ +- ----+ +Recovery; 2 min +139+141/99 (113) +Subsiding. + + --+---+ +- ----+ +Late recovery +99 +140/104 (116)+Lower back pain continues + + + + +that patient states is his + + + + +bladder/kidneys. + + --+---+ +- ----+ STRESS RESULTS: There is an appropriate blood pressure response to stress. The rate-pressure product for the peak heart rate and blood pressure was 13930 mm Hg/min. Stress testing did not produce [...] There is no evidence for stress-induced ischemia. ----- Measurements Value 11/07/2016 Reference Ascending aorta ID, [...] Electronically signed by José Miguel Branch DO, FS, FAC 12/14/2019 15:49 Prior Signatures: [email or web address] EKG 12 Lead - Chest Painon 0 12-14-2019 [employer] Test Date: 2019-12-13 Pat Name: Franklin Beaulieuh Department: [facility] Room: G107 Gender: M Sort Manager: LOU CASTB: 1945 Requested By: RU HAMPTON Order Number: [id number] Reading MD: Sierra Steen Measurements Intervals [place] Rate: 120 P: 53 TX: 137 QRS: 7 QRSD: 69 T: 30 QT: 280 QTc: 396 Interpretive Statements Sinus tachycardia Multiform ventricular premature complexes Electronically Signed On 12-14-2019 13:45:09 EDT by Sierra Steen [facility] Edi, [facility] Incoming Cardiology Results From [facility] - 12/14/2019 1:46 PM EDT [employer] Test Date: 2019-12-13 Pat Name: [facility] Department: [facility] Room: G107 Gender: M Sort Manager: LOU CASTB: 1945 Requested By: RU HAMPTON Order Number: [id number] Reading MD: Sierra Steen Measurements Intervals [place] Rate: 120 P: 53 TX: 137 QRS: 7 QRSD: 69 T: 30 QT: 280 QTc: 396 Interpretive Statements Sinus tachycardia Multiform ventricular premature complexes Electronically Signed On 12-14-2019 13:45:09 EDT by Sierra Steen [employer] [facility] Otheron 12-14-2019 Test Performed by [employer] [facility], [address] [place] [address] [place] Test Performed by [facility], [address] [place] [address] [place], [place] POCT Glucoseon 12-14-2019 Glucose [Mass/Vol] 272 mg/dL High 70 - 100 mg/dL [place], [place] Comment on above: Test performed by gl ucose meter. Results may be 10%-15% lower than serum/plasma values. (CLIA ID [id number]) Interpretation and review of laboratory results Abnormal [place] Test Performed by [facility], [address] [place], [place] [id number] [place] [address] Glucose [Mass/Vol] 161 mg/dL High 70 - 100 mg/dL [place], [place] Comment on above: Test performed by gl ucose meter. Results may be 10%-15% lower than serum/plasma values. (CLIA ID [id number]) Interpretation and review of laboratory results Abnormal [place] Test Performed by [facility], [facility] [address] [place], [place] [id number] [place] [address] Glucose [Mass/Vol] 75 mg/dL 70 - 100 mg/dL [place], [place] Comment on above: Test performed by gl ucose meter. Results may be 10%-15% lower than serum/plasma values. (CLIA ID [id number]) Test Performed by [facility], [address] [place], [place] [id number] [place] [address] Glucose [Mass/Vol] 77 mg/dL 70 - 100 mg/dL [place], [place] Comment on above: Test performed by gl ucose meter. Results may be 10%-15% lower than serum/plasma values. (CLIA ID [id number]) TSH without Reflexon 020 TSH Qn 2.598 u[IU]/mL 0.465 - 4.68 u[IU]/mL [place] Troponinon 12-14-2019 Troponin I.cardiac [Mass/Vol] 0.020 ng/mL 0 - 0.034 ng/mL [place] Comment on above: . Test Performed by [facility], [address] [place] [address] [place] Urinalysison 12-14-2019 Appearance (U) Clear Clear [place], [place] Comment on above: . Bacteria, UA Few Abnormal Negative /[HPF] [place], [place] Comment on above: . Bilirubin Urine Negative Negative mg/dL [place], [place] Comment on above: . Color (U) Light-Yellow Lt. Yellow NA [place], [place] Comment on above: . Glucose, Ur Normal Normal (<70) mg/dL [place], [place] Comment on above: . Hyaline Casts, UA Negative Negative /[LPF] [place], [place] Comment on above: . Interpretation and review of laboratory results Abnormal [place] Ketones Ql (U) Negative Negative mg/dL [place], [place] Comment on above: . LEUKOCYTES, UA 250 Abnormal Negative Karla/uL [place], [place] Comment on above: . Mucous Threads Few Negative /[LPF] [place], [place] Comment on above: . Nitrite, Urine Positive Abnormal Negative NA [place], [place] Comment on above: . Occult Blood,Urine 0.2 mg/dL Abnormal Negative [place], [place] Comment on above: . pH (U) 6.0 [pH] [place], [place] Comment on above: . Protein (U) [Mass/Vol] 70 mg/dL Abnormal Negative [place], [place] Comment on above: . RBC (U) [#/Vol] 11-25 Abnormal 0 - 2 /[HPF] [place], [place] Comment on above: . Specific [place], Urine 1.012 [place], [place] Comment on above: . Squam Epithel, UA Negative 3 - 5 /[HPF] [place], [place] Comment on above: . Urobilinogen, Urine Normal Normal ( 0-1) mg/dL [place], [place] Comment on above: . WBC, UA 11-25 Abnormal 0 - 5 /[HPF] [place], [place] Comment on above: . Add On Lab Teston 12-13-2019 Sodium [Moles/Vol] Accepted [place], [place] Comment on above: Specimen available & acceptable for analysis. Test Performed by [facility], [facility] [place] [address] [place] Sodium [Moles/Vol] Accepted [place], [place] Comment on above: Specimen available & acceptable for analysis. Test Performed by [facility], [facility] [place] [address] [place] Basic Metabolic Panelon - Anion gap [Moles/Vol] 8 mmol/L [place] Calcium [Mass/Vol] 8.6 mg/dL 8.4 - 10. 4 mg/dL [place] Chloride [Moles/Vol] 107 mmol/L 98 - 10 7 mmol/L [place] CO2 [Moles/Vol] 19 mmol/L Low 22 - 30 mmol/L [place] Creatinine [Mass/Vol] 3.02 mg/dL High 0.52 - 1.25 mg/dL [place] EGFR IF NonAfrican Monegasque 19.5 mL/min Abnormal >60 [place], [place] Comment on above: KDIGO guidelines pro [...] (S/P/Bld) [Vol rate/Area] 22.6 mL/min/{1.73_m2} Abnormal >60 [place], [place] Glucose [Mass/Vol] 95 mg/dL 70 - 100 mg/dL [place], [place] Potassium [Moles/Vol] 4.6 mmol/L 3.5 - 5.1 mmol/L [place], [place] Sodium [Moles/Vol] 134 mmol/L Low 135 - 145 mmol/L [place], [place] Urea nitrogen [Mass/Vol] 62 mg/dL High 7 - 20 mg/dL [place] Brain Natriuretic Peptideon 12-13-2019 Interpretation and review of laboratory results Abnormal [place], [place] Natriuretic peptide B (Bld) [Mass/Vol] 1201 pg/mL High 0 - 125 pg/mL [place], [place] Test Performed by [facility], [address] [place] [address] [place] Hemogram (CBC) w/Auto Diffon 12-13-2019 Absolute Baso # 0.0 10*3/uL 0 - 0.2 10*3/uL [place], [place] Absolute Neut # 9.0 10*3/uL High 1.8 - 7 10*3/uL [place], [place] Basophils/100 WBC (Bld) 0.1 % 0 - 2 % [place] Eosinophils (Bld) [#/Vol] 0.0 10*3/uL 0 - 0.5 10*3/uL [place] Eosinophils/100 WBC (Bld) 0.1 % Low 1 - 6 % [place] Erythrocyte distribution width (RBC) [Ratio] 19.6 % High 11.5 - 14.5 % [place] Granulocytes/100 WBC (Bld) 91.7 % High 40 - 80 % [place] Hematocrit (Bld) [Volume fraction] 38.1 % Low 40 - 52 % [place] Hemoglobin (Bld) [Mass/Vol] 12.6 g/dL Low 13 - 18 g/dL [place], [place] Interpretation and review of laboratory results Abnormal [place], [place] Lymphocytes (Bld) [#/Vol] 0.4 10*3/uL Low 1 - 4.3 10*3/uL [place], [place] Lymphocytes/100 WBC (Bld) 3.9 % Low 20 - 40 % [place] MCH (RBC) [Entitic mass] 29.0 pg 26 - 34 pg [place], [place] MCHC (RBC) [Mass/Vol] 33.1 % 32 - 36 % [place] MCV (RBC) [Entitic vol] 87.5 fL 80 - 98 fL [place], [place] Monocytes (Bld) [#/Vol] 0.4 10*3/uL 0 - 0.8 10*3/uL [place], [place] Monocytes/100 WBC (Bld) 4.2 % 2 - 10 % [place] Platelet mean volume (Bld) [Entitic vol] 7.3 fL Low 7.4 - 10.4 fL [place] Platelets (Bld) [#/Vol] 90 10*3/uL Low 140 - 440 10*3/uL [place] RBC (Bld) [#/Vol] 4.36 10*6/uL Low 4.4 - 5.9 10*6/uL [place] WBC (Bld) [#/Vol] 9.8 10*3/uL 3.6 - 10.7 10*3/uL [place] Test Performed by [facility], [address] [place] [address] [place] Hepatic Function Panelon Albumin [Mass/Vol] 3.2 g/dL Low 3.5 - 5 g/dL [place] ALP [Catalytic activity/Vol] 48 U/L 38 - 126 U/L [place] ALT [Catalytic activity/Vol] 30 U/L 0 - 49 U/L [place] Comment on above: The ALT test is perf ormed by an updated assay method. Please note that the reference intervals have been changed and are now sex specific. AST [Catalytic activity/Vol] 28 U/L 15 - 46 U/L [place] Bilirubin Ql (U) 0.5 mg/dL 0.2 - 1.3 mg/dL [place] Bilirubin.direct [Mass/Vol] 0.0 mg/dL 0 - 0.3 mg/dL [place] Protein [Mass/Vol] 5.5 g/dL Low 6.3 - 8.2 g/dL [place], [place] Lipaseon 12-13-2019 Lipase [Catalytic activity/Vol] 150 U/L 23 - 300 U/L [place], [place] Otheron 12-13-2019 Interpretation and review of laboratory results Abnormal [place], [place] Test Performed by [facility], [address] [place] [address] POCT Glucoseon 12-13-2019 Glucose [Mass/Vol] 86 mg/dL 70 - 100 mg/dL [place], [place] Comment on above: Test performed by ucose meter. Results may be 10%-15% lower than serum/plasma values. (CLIA ID [id number]) Test Performed by [facility], [address] [place] [address] Troponinon 12-13-2019 Troponin I.cardiac [Mass/Vol] 0.021 ng/mL 0 - 0.034 ng/mL [place], [place] Comment on above: . Test Performed by [facility], [address] [place] [address] Troponin x1on 12-13-2019 Troponin I.cardiac [Mass/Vol] 0.015 ng/mL 0 - 0.034 ng/mL [place], [place] Comment on above: . Test Performed by [facility], [address] [place] [address] XR CHEST PORTABLEon 12-13-19 20 [facility], [facility] Incoming Radiology Results From [facility] - 12/13/2019 8:23 PM EDT Patient Name: FRANKLIN BURTON ---Diagnostic Radiology--- Exam Date/Time 12/13/2019 20:23:19 EDT Exam CR Chest Portable Ordering Physician OLGA HAMPTON RYAN Accession Number [id number] CPT4 Codes 95587 () Reason For Exam CP Report CLINICAL [...] HARLAN Transcribed Date and Time: 12/13/2019 8:22 [place], [place] Patient Name: FRANKLIN BURTON ---Diagnostic Radiology--- Exam Date/Time 12/13/2019 20:23:19 EDT Exam CR Chest Portable Ordering Physician OLGA HAMPTON RYAN Accession Number [id number] CPT4 Codes 26815 () Reason For Exam CP Report CLINICAL [...] HARLAN Transcribed Date and Time: 12/13/2019 8:22 [place], [place] C3 Complementon 11-15-2019 C3 Complement 93 mg/dL 85 - 165 mg/dL [place] C4 Complementon 11-15-2019 C4 Complement 20 mg/dL 14 - 44 mg/dL [place], [place] CBC Auto Differentialon 10-18 Absolute Baso # 0.0 10*3/uL 0 - 0.2 10*3/uL [place], [place] Absolute Neut # 7.3 10*3/uL High 1.8 - 7 10*3/uL [place], [place] Basophils/100 WBC (Bld) 0.1 % 0 - 2 % [place] Eosinophils (Bld) [#/Vol] 0.0 10*3/uL 0 - 0.5 10*3/uL [place], [place] Eosinophils/100 WBC (Bld) 0.1 % Low 1 - 6 % [place] Erythrocyte distribution width (RBC) [Ratio] 19.5 % High 11.5 - 14.5 % [place] Granulocytes/100 WBC (Bld) 90.1 % High 40 - 80 % [place] Hematocrit (Bld) [Volume fraction] 34.6 % Low 40 - 52 % [place] Hemoglobin (Bld) [Mass/Vol] 11.2 g/dL Low 13 - 18 g/dL [place] Interpretation and review of laboratory results Abnormal [place], [place] Lymphocytes (Bld) [#/Vol] 0.4 10*3/uL Low 1 - 4.3 10*3/uL [place], [place] Lymphocytes/100 WBC (Bld) 4.6 % Low 20 - 40 % [place] MCH (RBC) [Entitic mass] 27.7 pg 26 - 34 pg [place] MCHC (RBC) [Mass/Vol] 32.5 % 32 - 36 % [place] MCV (RBC) [Entitic vol] 85.2 fL 80 - 98 fL [place], [place] Monocytes (Bld) [#/Vol] 0.4 10*3/uL 0 - 0.8 10*3/uL [place], [place] Monocytes/100 WBC (Bld) 5.1 % 2 - 10 % [place] Platelet mean volume (Bld) [Entitic vol] 8.3 fL 7.4 - 10.4 fL [place] Platelets (Bld) [#/Vol] 112 10*3/uL Low 140 - 440 10*3/uL [place] RBC (Bld) [#/Vol] 4.06 10*6/uL Low 4.4 - 5.9 10*6/uL [place] WBC (Bld) [#/Vol] 8.1 10*3/uL 3.6 - 10.7 10*3/uL [place] Test Performed by [facility], [address] [place] [address] [place], [place] Creatinine, Random Urineon 0 11-15-2019 Creatinine (U) [Mass/Vol] 23.8 mg/dL No Range [place], [place] High sensitivity CRPon 11-14 CRP High Sensitivity 0.32 mg/L 0 - 3 mg/L [place], [place] Comment on above: Classification for C ardiovascular Disease Risk Low <1.00 mg/L Average 1.00-3.00 mg/L High >3.00-10.00 mg/L Indeterminant* >10.00 mg/L *May be indication of another source of inflammation or infection. Otheron 11-15-2019 Test Performed by [employer] [facility], [address] [facility] [place] [address] [place] Test Performed by [employer] [facility], [address] [place] [address] [place], [place] Protein, urine, randomon Interpretation and review of laboratory results Abnormal [place], [place] Protein (U) [Mass/Vol] 60 mg/dL High No Range [place], [place] Renal Function Panelon 11-14 Albumin [Mass/Vol] 3.1 g/dL Low 3.5 - 5 g/dL [place], [place] Anion gap [Moles/Vol] 9 mmol/L [place] Calcium [Mass/Vol] 8.6 mg/dL 8.4 - 10. 4 mg/dL [place], [place] Chloride [Moles/Vol] 103 mmol/L 98 - 10 7 mmol/L [place] CO2 [Moles/Vol] 18 mmol/L Low 22 - 30 mmol/L [place] Creatinine [Mass/Vol] 2.68 mg/dL High 0.52 - 1.25 mg/dL [place], [place] EGFR IF NonAfrican Monegasque 22.5 mL/min Abnormal >60 [place], [place] Comment on above: KDIGO guidelines pro [...] (S/P/Bld) [Vol rate/Area] 26.1 mL/min/{1.73_m2} Abnormal >60 [place], [place] Glucose [Mass/Vol] 98 mg/dL 70 - 100 mg/dL [place], [place] Interpretation and review of laboratory results Abnormal [place], [place] Phosphate [Mass/Vol] 3.9 mg/dL 2.5 - 4 .5 mg/dL [place] Potassium [Moles/Vol] 5.3 mmol/L High 3.5 - 5.1 mmol/L [place], [place] Sodium [Moles/Vol] 130 mmol/L Low 135 - 145 mmol/L [place], [place] Urea nitrogen [Mass/Vol] 65 mg/dL High 7 - 20 mg/dL [place] Test Performed by [address] Sedimentation Rateon 020 Sed Rate 3 mm/h 0 - 10 mm/h [place] Test Performed by [place] [address] [employer] [place], [place] [id number] [place] [address] Urinalysison 11-15-2019 Appearance (U) Clear Clear NA [place], [place] Comment on above: . Bacteria, UA Negative Negative /[HPF] [place], [place] Comment on above: . Bilirubin Urine Negative Negative mg/dL [place], [place] Comment on above: . Color (U) Colorless Lt. Yellow NA [place], [place] Comment on above: . Glucose, Ur 70 mg/dL Normal (<70) [place], [place] Comment on above: . Hyaline Casts, UA Negative Negative /[LPF] [place], [place] Comment on above: . Interpretation and review of laboratory results Abnormal [place], [place] Ketones Ql (U) Negative Negative mg/dL [place], [place] Comment on above: . LEUKOCYTES, UA Negative Negative Karla/uL [place], [place] Comment on above: . Nitrite, Urine Negative Negative NA [place], [place] Comment on above: . Occult Blood,Urine 0.1 mg/dL Abnormal Negative [place], [place] Comment on above: . pH (U) 6.5 [pH] [place], [place] Comment on above: . Protein (U) [Mass/Vol] 30 mg/dL Abnormal Negative [place] Comment on above: . RBC (U) [#/Vol] 0-2 0 - 2 /[HPF] [place], [place] Comment on above: . Specific [place], Urine 1.008 [place], [place] Comment on above: . Squam Epithel, UA Negative 3 - 5 /[HPF] [place], [place] Comment on above: . Urobilinogen, Urine Normal Normal ( 0-1) mg/dL [place], [place] Comment on above: . WBC, UA 0-2 0 - 5 /[HPF] [place], [place] Comment on above: . Test Performed by [facility] [facility] [address] [address] [place], [place] CBCon 10-25-2019 Erythrocyte distribution width (RBC) [Ratio] 16.4 % High 11.5 - 14.5 % [place] Hematocrit (Bld) [Volume fraction] 28.5 % Low 40 - 52 % [place] Hemoglobin (Bld) [Mass/Vol] 9.5 g/dL Low 13 - 18 g/dL [place] Interpretation and review of laboratory results Abnormal [place] MCH (RBC) [Entitic mass] 27.4 pg 26 - 34 pg [place] MCHC (RBC) [Mass/Vol] 33.4 % 32 - 36 % [place] MCV (RBC) [Entitic vol] 82.1 fL 80 - 98 fL [place], [place] Platelet mean volume (Bld) [Entitic vol] 7.9 fL 7.4 - 10.4 fL [place] Platelets (Bld) [#/Vol] 161 10*3/uL 140 - 440 10*3/uL [place] RBC (Bld) [#/Vol] 3.47 10*6/uL Low 4.4 - 5.9 10*6/uL [place] WBC (Bld) [#/Vol] 6.3 10*3/uL 3.6 - 10.7 10*3/uL [place] Test Performed by [facility], [facility] [address] Hepatitis Panel, Acuteon HAV IgM IA Qn (S) NOT DETECTED Not-Detect ed [place], [place] Hep B Core Ab, IgM NOT DETECTED Not-Detec anselmo [place], [place] Hepatitis B Surface Ag NOT DETECTED Not-D etected [place], [place] Hepatitis C Ab NOT DETECTED Not-Detected [place], [place] Comment on above: Patients with DETECT ED Hepatitis C Ab results should have a new specimen submitted for supplemental testing with a Hepatitis C Quantitative RNA assay (viral load), if clinically indicated. Test Performed by [facility], [facility] [place], [place] [id number] [place] [address] POCT Glucoseon 10-25-2019 Glucose [Mass/Vol] 102 mg/dL High 70 - 100 mg/dL [place], [place] Comment on above: Test performed by ucose meter. Results may be 10%-15% lower than serum/plasma values. (CLIA ID [id number]) Interpretation and review of laboratory results Abnormal [place] Test Performed by [facility], [facility] [address] Renal Function Panelon 10-24 Albumin [Mass/Vol] 3.2 g/dL Low 3.5 - 5 g/dL [place], [place] Anion gap [Moles/Vol] 9 mmol/L [place], [place] Calcium [Mass/Vol] 8.6 mg/dL 8.4 - 10. 4 mg/dL [place], [place] Chloride [Moles/Vol] 103 mmol/L 98 - 10 7 mmol/L [place] CO2 [Moles/Vol] 20 mmol/L Low 22 - 30 mmol/L [place] Creatinine [Mass/Vol] 3.12 mg/dL High 0.52 - 1.25 mg/dL [place], [place] EGFR IF NonAfrican Monegasque 18.8 mL/min Abnormal >60 [place], [place] Comment on above: KDIGO guidelines pro [...] (S/P/Bld) [Vol rate/Area] 21.7 mL/min/{1.73_m2} Abnormal >60 [place], [place] Glucose [Mass/Vol] 147 mg/dL High 70 - 100 mg/dL [place], [place] Interpretation and review of laboratory results Abnormal [place], [place] Phosphate [Mass/Vol] 3.5 mg/dL 2.5 - 4 .5 mg/dL [place] Potassium [Moles/Vol] 4.7 mmol/L 3.5 - 5.1 mmol/L [place], [place] Sodium [Moles/Vol] 133 mmol/L Low 135 - 145 mmol/L [place], [place] Urea nitrogen [Mass/Vol] 68 mg/dL High 7 - 20 mg/dL [place], [place] Test Performed by [address] [address] [place], [place] CBCon 10-24-2019 Erythrocyte distribution width (RBC) [Ratio] 16.3 % High 11.5 - 14.5 % [place] Hematocrit (Bld) [Volume fraction] 27.8 % Low 40 - 52 % [place] Hemoglobin (Bld) [Mass/Vol] 9.3 g/dL Low 13 - 18 g/dL [place], [place] Interpretation and review of laboratory results Abnormal [place], [place] MCH (RBC) [Entitic mass] 27.2 pg 26 - 34 pg [place] MCHC (RBC) [Mass/Vol] 33.3 % 32 - 36 % [place] MCV (RBC) [Entitic vol] 81.9 fL 80 - 98 fL [place], [place] Platelet mean volume (Bld) [Entitic vol] 8.1 fL 7.4 - 10.4 fL [place], [place] Platelets (Bld) [#/Vol] 188 10*3/uL 140 - 440 10*3/uL [place] RBC (Bld) [#/Vol] 3.40 10*6/uL Low 4.4 - 5.9 10*6/uL [place], [place] WBC (Bld) [#/Vol] 8.7 10*3/uL 3.6 - 10.7 10*3/uL [place] Test Performed by [address] [address] [place], [place] POCT Glucoseon 10-24-2019 Glucose [Mass/Vol] 223 mg/dL High 70 - 100 mg/dL [place], [place] Comment on above: Test performed by ucose meter. Results may be 10%-15% lower than serum/plasma values. (CLIA ID [id number]) Interpretation and review of laboratory results Abnormal [place] Test Performed by [employer] [facility], [address] [place] [address] [facility], [place] Glucose [Mass/Vol] 154 mg/dL High 70 - 100 mg/dL [place], [place] Comment on above: Test performed by gl ucose meter. Results may be 10%-15% lower than serum/plasma values. (CLIA ID [id number]) Interpretation and review of laboratory results Abnormal [facility], [place] Test Performed by [employer] [facility], [address] [place] [address] [place], [place] Glucose [Mass/Vol] 162 mg/dL High 70 - 100 mg/dL [place], [place] Comment on above: Test performed by gl ucose meter. Results may be 10%-15% lower than serum/plasma values. (CLIA ID [id number]) Interpretation and review of laboratory results Abnormal [facility], [place] Test Performed by [employer] [facility], [facility] [place] [address] [place], [place] Glucose [Mass/Vol] 171 mg/dL High 70 - 100 mg/dL [place], [place] Comment on above: Test performed by gl ucose meter. Results may be 10%-15% lower than serum/plasma values. (CLIA ID [id number]) Interpretation and review of laboratory results Abnormal [place] Test Performed by [employer] [facility], [facility] [place] [address] [place], [place] Renal Function Panelon 10-23 Albumin [Mass/Vol] 3.3 g/dL Low 3.5 - 5 g/dL [place], [place] Anion gap [Moles/Vol] 10 mmol/L [place], [place] Calcium [Mass/Vol] 8.7 mg/dL 8.4 - 10. 4 mg/dL [place], [place] Chloride [Moles/Vol] 104 mmol/L 98 - 10 7 mmol/L [place] CO2 [Moles/Vol] 18 mmol/L Low 22 - 30 mmol/L [place], [place] Creatinine [Mass/Vol] 3.23 mg/dL High 0.52 - 1.25 mg/dL [place], [place] EGFR IF NonAfrican Monegasque 18.0 mL/min Abnormal >60 [place], [place] Comment on above: KDIGO guidelines pro [...] (S/P/Bld) [Vol rate/Area] 20.9 mL/min/{1.73_m2} Abnormal >60 [place], [place] Glucose [Mass/Vol] 153 mg/dL High 70 - 100 mg/dL [place], [place] Interpretation and review of laboratory results Abnormal [place], [place] Phosphate [Mass/Vol] 4.0 mg/dL 2.5 - 4 .5 mg/dL [place], [place] Potassium [Moles/Vol] 4.4 mmol/L 3.5 - 5.1 mmol/L [place], [place] Sodium [Moles/Vol] 133 mmol/L Low 135 - 145 mmol/L [place], [place] Urea nitrogen [Mass/Vol] 64 mg/dL High 7 - 20 mg/dL [place], [place] Test Performed by [employer] [facility], [address] [place] [address] [place], [place] CBCon 10-23-2019 Erythrocyte distribution width (RBC) [Ratio] 16.2 % High 11.5 - 14.5 % [place] Hematocrit (Bld) [Volume fraction] 28.5 % Low 40 - 52 % [place], [place] Hemoglobin (Bld) [Mass/Vol] 9.5 g/dL Low 13 - 18 g/dL [place], [place] Interpretation and review of laboratory results Abnormal [place] MCH (RBC) [Entitic mass] 27.1 pg 26 - 34 pg [place], [place] MCHC (RBC) [Mass/Vol] 33.2 % 32 - 36 % [place] MCV (RBC) [Entitic vol] 81.5 fL 80 - 98 fL [place], [place] Platelet mean volume (Bld) [Entitic vol] 7.9 fL 7.4 - 10.4 fL [place], [place] Platelets (Bld) [#/Vol] 183 10*3/uL 140 - 440 10*3/uL [place] RBC (Bld) [#/Vol] 3.50 10*6/uL Low 4.4 - 5.9 10*6/uL [place] WBC (Bld) [#/Vol] 11.3 10*3/uL High 3.6 - 10.7 10*3/uL [place], [place] Test Performed by [employer], [facility] [place], [place] [id number] [place] [address] Creatinine, Random Urineon 0 10-23-2019 Creatinine (U) [Mass/Vol] 65.4 mg/dL No Range [place], [place] Hepatitis B Surface Antibody on 10-23-2019 HBV surface Ab (S) [Titer] <8.0 m[IU]/mL [place], [place] Comment on above: Interpretation: <8.0 Non-Reactive 8.0-11.9 Equivocal >= 12.0 Ab Detected Hepatitis B Surface Antigeno n 10-23-2019 Hepatitis B Surface Ag NOT DETECTED Not-D etected NA [place] Hepatitis C Antibodyon 10-22 Hepatitis C Ab NOT DETECTED Not-Detected NA [place] Comment on above: Patients with DETECT ED Hepatitis C Ab results should have a new specimen submitted for supplemental testing with a Hepatitis C Quantitative RNA assay (viral load), if clinically indicated. Otheron 10-23-2019 Test Performed by [employer], [facility] [place] [address] [facility] Test Performed by [employer], [address] [place] [address] [facility]- [place], [place] POCT Glucoseon 10-23-2019 Glucose [Mass/Vol] 187 mg/dL High 70 - 100 mg/dL [facility]- [place], [place] Comment on above: Test performed by gl ucose meter. Results may be 10%-15% lower than serum/plasma values. (CLIA ID [id number]) Interpretation and review of laboratory results Abnormal [facility]- [place] Test Performed by [employer], [address] [place] [address] [facility]- [place] Glucose [Mass/Vol] 185 mg/dL High 70 - 100 mg/dL [facility] Comment on above: Test performed by gl ucose meter. Results may be 10%-15% lower than serum/plasma values. (CLIA ID [id number]) Interpretation and review of laboratory results Abnormal [facility] [place] Test Performed by [employer], [facility] [place] [address] [facility], [place] Glucose [Mass/Vol] 137 mg/dL High 70 - 100 mg/dL [facility], [place] Comment on above: Test performed by gl ucose meter. Results may be 10%-15% lower than serum/plasma values. (CLIA ID [id number]) Interpretation and review of laboratory results Abnormal [facility] [place] Test Performed by [employer], [address] [place] [address] [facility], [place] Glucose [Mass/Vol] 157 mg/dL High 70 - 100 mg/dL [facility], [place] Comment on above: Test performed by gl ucose meter. Results may be 10%-15% lower than serum/plasma values. (CLIA ID [id number]) Interpretation and review of laboratory results Abnormal [facility] [place] Test Performed by [employer], [address] [place] [address] [facility] [place], [place] Protein, urine, randomon Interpretation and review of laboratory results Abnormal [facility] [place] Protein (U) [Mass/Vol] 162 mg/dL High No Range [place], [place] Renal Function Panelon 10-22 Albumin [Mass/Vol] 3.6 g/dL 3.5 - 5 g/dL [place] Anion gap [Moles/Vol] 11 mmol/L [place] Calcium [Mass/Vol] 9.2 mg/dL 8.4 - 10. 4 mg/dL [place] Chloride [Moles/Vol] 105 mmol/L 98 - 10 7 mmol/L [place] CO2 [Moles/Vol] 17 mmol/L Low 22 - 30 mmol/L [place] Creatinine [Mass/Vol] 3.58 mg/dL High 0.52 - 1.25 mg/dL [place] EGFR IF NonAfrican Monegasque 15.9 mL/min Abnormal >60 [place], [place] Comment on above: KDIGO guidelines pro [...] (S/P/Bld) [Vol rate/Area] 18.4 mL/min/{1.73_m2} Abnormal >60 [place], [place] Glucose [Mass/Vol] 154 mg/dL High 70 - 100 mg/dL [place], [place] Interpretation and review of laboratory results Abnormal [place] Phosphate [Mass/Vol] 3.5 mg/dL 2.5 - 4 .5 mg/dL [place] Potassium [Moles/Vol] 4.6 mmol/L 3.5 - 5.1 mmol/L [place] Sodium [Moles/Vol] 133 mmol/L Low 135 - 145 mmol/L [place], [place] Urea nitrogen [Mass/Vol] 55 mg/dL High 7 - 20 mg/dL [place], [place] Test Performed by [facility], [address] [place] [address] [place], [place] CBCon 10-22-2019 Erythrocyte distribution width (RBC) [Ratio] 16.2 % High 11.5 - 14.5 % [place] Hematocrit (Bld) [Volume fraction] 31.3 % Low 40 - 52 % [place] Hemoglobin (Bld) [Mass/Vol] 10.2 g/dL Low 13 - 18 g/dL [place], [place] Interpretation and review of laboratory results Abnormal [place] MCH (RBC) [Entitic mass] 26.7 pg 26 - 34 pg [place], [place] MCHC (RBC) [Mass/Vol] 32.6 % 32 - 36 % [place] MCV (RBC) [Entitic vol] 81.7 fL 80 - 98 fL [place], [place] Platelet mean volume (Bld) [Entitic vol] 7.6 fL 7.4 - 10.4 fL [place], [place] Platelets (Bld) [#/Vol] 186 10*3/uL 140 - 440 10*3/uL [place] RBC (Bld) [#/Vol] 3.83 10*6/uL Low 4.4 - 5.9 10*6/uL [place] WBC (Bld) [#/Vol] 5.4 10*3/uL 3.6 - 10.7 10*3/uL [place] Test Performed by [facility], [address] [place] [address] [place], [place] Ferritinon 10-22-2019 Ferritin [Mass/Vol] 516 ng/mL High 18 - 464 ng/mL [place], [place] Interpretation and review of laboratory results Abnormal [place], [place] Test Performed by [facility], [address] [place] [address] [place] Iron and TIBCon 10-22-2019 Interpretation and review of laboratory results Abnormal [facility] [place] Iron [Mass/Vol] 38 ug/dL Low 49 - 181 ug/dL [place], [place] Sat 16 % 15 - 50 % [place] TIBC 233 ug/dL Low 261 - 497 ug/dL [place] Test Performed by [facility], [facility] [place] [address] [place], [place] POCT Glucoseon 10-22-2019 Glucose [Mass/Vol] 212 mg/dL High 70 - 100 mg/dL [place], [place] Comment on above: Test performed by gl ucose meter. Results may be 10%-15% lower than serum/plasma values. (CLIA ID [id number]) Interpretation and review of laboratory results Abnormal [facility], [place] Test Performed by [employer] [facility], [facility] [place] [address] [place], [place] Glucose [Mass/Vol] 176 mg/dL High 70 - 100 mg/dL [place], [place] Comment on above: Test performed by gl ucose meter. Results may be 10%-15% lower than serum/plasma values. (CLIA ID [id number]) Interpretation and review of laboratory results Abnormal [facility] [place] Test Performed by [employer] [facility], [facility] [place] [address] [place], [place] Glucose [Mass/Vol] 196 mg/dL High 70 - 100 mg/dL [place], [place] Comment on above: Test performed by gl ucose meter. Results may be 10%-15% lower than serum/plasma values. (CLIA ID [id number]) Interpretation and review of laboratory results Abnormal [facility], [place] Test Performed by [employer] [facility], [address] [place] [address] [place], [place] Glucose [Mass/Vol] 199 mg/dL High 70 - 100 mg/dL [place], [place] Comment on above: Test performed by gl ucose meter. Results may be 10%-15% lower than serum/plasma values. (CLIA ID [id number]) Interpretation and review of laboratory results Abnormal [place] Test Performed by [facility], [address] [place] [address] [place] Renal Function Panelon 10-21 Albumin [Mass/Vol] 3.8 g/dL 3.5 - 5 g/dL [place] Anion gap [Moles/Vol] 9 mmol/L [place] Calcium [Mass/Vol] 9.1 mg/dL 8.4 - 10. 4 mg/dL [place], [place] Chloride [Moles/Vol] 104 mmol/L 98 - 10 7 mmol/L [place] CO2 [Moles/Vol] 19 mmol/L Low 22 - 30 mmol/L [place] Creatinine [Mass/Vol] 3.54 mg/dL High 0.52 - 1.25 mg/dL [place], [place] EGFR IF NonAfrican Monegasque 16.1 mL/min Abnormal >60 [place], [place] Comment on above: KDIGO guidelines pro [...] (S/P/Bld) [Vol rate/Area] 18.7 mL/min/{1.73_m2} Abnormal >60 [place], [place] Glucose [Mass/Vol] 211 mg/dL High 70 - 100 mg/dL [place], [place] Interpretation and review of laboratory results Abnormal [place] Phosphate [Mass/Vol] 2.3 mg/dL Low 2.5 - 4 .5 mg/dL [place] Potassium [Moles/Vol] 5.2 mmol/L High 3.5 - 5.1 mmol/L [place] Sodium [Moles/Vol] 132 mmol/L Low 135 - 145 mmol/L [place], [place] Urea nitrogen [Mass/Vol] 47 mg/dL High 7 - 20 mg/dL [place] Test Performed by [place] [address] [place], [place] [id number] [place] [address] Add On Lab Teston 10-21-2019 Sodium [Moles/Vol] Accepted [place], [place] Comment on above: Specimen available & acceptable for analysis. Test Performed by [place] [address] [place], [place] [id number] [place] [address] Sodium [Moles/Vol] Rejected [place], [place] Comment on above: No specimen availabl e for addon. Test Performed by [place] [address] [place] [address] [place], [place] CBCon 10-21-2019 Erythrocyte distribution width (RBC) [Ratio] 16.1 % High 11.5 - 14.5 % [place] Hematocrit (Bld) [Volume fraction] 28.7 % Low 40 - 52 % [place] Hemoglobin (Bld) [Mass/Vol] 9.5 g/dL Low 13 - 18 g/dL [place], [place] Interpretation and review of laboratory results Abnormal [place] MCH (RBC) [Entitic mass] 27.1 pg 26 - 34 pg [place] MCHC (RBC) [Mass/Vol] 33.1 % 32 - 36 % [place] MCV (RBC) [Entitic vol] 82.1 fL 80 - 98 fL [place], [place] Platelet mean volume (Bld) [Entitic vol] 7.3 fL Low 7.4 - 10.4 fL [place], [place] Platelets (Bld) [#/Vol] 188 10*3/uL 140 - 440 10*3/uL [place] RBC (Bld) [#/Vol] 3.49 10*6/uL Low 4.4 - 5.9 10*6/uL [place] WBC (Bld) [#/Vol] 5.0 10*3/uL 3.6 - 10.7 10*3/uL [place] Test Performed by [facility], [address] [place] [id number] [place] [address] Protime/INR & PTTon 10-21-19 20 aPTT Coag (Bld) [Time] 28.1 s 20 - 30.5 s M [place], [place] Comment on above: NOTE: The therapeuti c time for Heparin anticoagulation, based on Xa activity inhibition, is an APTT of 46-80 seconds. INR Coag (PPP) [Relative time] 1.0 {INR} [place], [place] Comment on above: Recommended Anticoag ulant [...] [Time] 11.1 s 9 - 12 s [place], [place] Comment on above: . Test Performed by [facility], [address] [place] [address] [place] RENAL + LIVER PROFon 020 Albumin [Mass/Vol] 3.6 g/dL 3.5 - 5 g/dL [place] ALP [Catalytic activity/Vol] 121 U/L 38 - 126 U/L [place] ALT [Catalytic activity/Vol] 13 U/L 0 - 49 U/L [place] Comment on above: The ALT test is perf ormed by an updated assay method. Please note that the reference intervals have been changed and are now sex specific. Anion gap [Moles/Vol] 10 mmol/L [place] AST [Catalytic activity/Vol] 25 U/L 15 - 46 U/L [place] Bilirubin Ql (U) 0.3 mg/dL 0.2 - 1.3 mg/dL [place] Bilirubin.direct [Mass/Vol] 0.0 mg/dL 0 - 0.3 mg/dL [place] Calcium [Mass/Vol] 8.9 mg/dL 8.4 - 10. 4 mg/dL [place] Chloride [Moles/Vol] 104 mmol/L 98 - 10 7 mmol/L [place] CO2 [Moles/Vol] 21 mmol/L Low 22 - 30 mmol/L [place] Creatinine [Mass/Vol] 3.62 mg/dL High 0.52 - 1.25 mg/dL [place], [place] EGFR IF NonAfrican Monegasque 15.7 mL/min Abnormal >60 [place], [place] Comment on above: KDIGO guidelines pro [...] (S/P/Bld) [Vol rate/Area] 18.2 mL/min/{1.73_m2} Abnormal >60 [place], [place] Glucose [Mass/Vol] 126 mg/dL High 70 - 100 mg/dL [place], [place] Interpretation and review of laboratory results Abnormal [place], [place] Phosphate [Mass/Vol] 4.2 mg/dL 2.5 - 4 .5 mg/dL [place] Potassium [Moles/Vol] 4.9 mmol/L 3.5 - 5.1 mmol/L [place] Protein [Mass/Vol] 6.5 g/dL 6.3 - 8.2 g/dL [place], [place] Sodium [Moles/Vol] 134 mmol/L Low 135 - 145 mmol/L [place], [place] Urea nitrogen [Mass/Vol] 46 mg/dL High 7 - 20 mg/dL [place] Test Performed by [employer] [facility], [address] [place] [address] [place] US BIOPSY RENAL RIGHT PERCon 10-21-2019 Patient Name: FRANKLIN BURTON ---Ultrasound--- Exam Date/Time 10/21/2019 11:11:54 EDT Exam US Biopsy Renal Right Ordering Physician FANG SMALLWOOD Accession Number [id number] CPT4 Codes 91882 (), 76604 () Reason For Exam roderick, ckd 3, microscopic hematuria Report EXAMINATION: Ultrasound guided kidney biopsy. CLINICAL INFORMATION: Medical renal failure. Microscopic hematuria. The patient (or guardian) agrees to proceed with the procedure, and understands the benefits and risks given their co-morbidities/chronic conditions and quality of life. This includes [...] I Transcribed Date and Time: 10/21/2019 12:23 [place] [facility] From [facility] - 10/21/2019 12:26 PM EDT Patient Name: FRANKLIN BURTON ---Ultrasound--- Exam Date/Time 10/21/2019 11:11:54 EDT Exam US Biopsy Renal Right Ordering Physician FANG SMALLWOOD Accession Number [id number] CPT4 Codes 91746 (), 92965 () Reason For Exam roderick, ckd 3, microscopic hematuria Report EXAMINATION: Ultrasound guided kidney biopsy. CLINICAL INFORMATION: Medical renal failure. Microscopic hematuria. The patient (or guardian) agrees to proceed with the procedure, and understands the benefits and risks given their co-morbidities/chronic conditions and quality of life. This includes [...] I Transcribed Date and Time: 10/21/2019 12:23 [place] US RETROPERITONEAL COMPLETEo n 10-21-2019 James, [facility] Incoming Radiology Results From [facility] - 10/21/2019 1:46 PM EDT Patient Name: FRANKLIN BURTON ---Ultrasound--- Exam Date/Time 10/21/2019 11:11:54 EDT Exam US Retroperitoneal Complete Ordering Physician FANG SMALLWOOD Accession Number [id number] CPT4 Codes 92572 () Reason For Exam RODERICK on CKD [...] RISA Transcribed Date and Time: 10/21/2019 1:42 [place] Patient Name: FRANKLIN BURTON ---Ultrasound--- Exam Date/Time 10/21/2019 11:11:54 EDT Exam US Retroperitoneal Complete Ordering Physician FANG SMALLWOOD Accession Number [id number] CPT4 Codes 60328 () Reason For Exam RODERICK on CKD [...] RISA Transcribed Date and Time: 10/21/2019 1:42 [place] XR CHEST PORTABLEon 10-21-19 Patient Name: FRANKLIN BURTON ---Diagnostic Radiology--- Exam Date/Time 10/21/2019 17:21:54 EDT Exam CR Chest Portable Ordering Physician MD STYLES LAUREN Accession Number [id number] CPT4 Codes 93531 () Reason For Exam dyspnea, hx of [...] RISA Transcribed Date and Time: 10/21/2019 4:41 [place], [facility] Incoming Radiology Results From [facility] - 10/21/2019 5:22 PM EDT Patient Name: FRANKLIN BURTON ---Diagnostic Radiology--- Exam Date/Time 10/21/2019 17:21:54 EDT Exam CR Chest Portable Ordering Physician MD STYLES LAUREN Accession Number [id number] CPT4 Codes 56414 () Reason For Exam dyspnea, hx of [...] RISA Transcribed Date and Time: 10/21/2019 4:41 [place] US RETROPERITONEAL COMPLETEO rdered By: Fang Smallwood on 05-24-2019 Patient Name: FRANKLIN BURTON ---Ultrasound--- Exam Date/Time 05/24/2019 14:07:40 EST Exam US Retroperitoneal Complete Ordering Physician FANG SMALLWOOD Accession Number [id number] CPT4 Codes 95047 () Reason For Exam ckd Report Retroperitoneal [...] and Time: 05/24/2019 2:13 [facility] Work Phone: [facility] Incoming Radiology Results From [facility] - 05/24/2019 2:36 PM EST Patient Name: FRANKLIN BURTON ---Ultrasound--- Exam Date/Time 05/24/2019 14:07:40 EST Exam US Retroperitoneal Complete Ordering Physician FANG SMALLWOOD Accession Number [id number] CPT4 Codes 47157 () Reason For Exam ckd Report Retroperitoneal [...] 05/24/2019 2:13 [facility] Work Phone: LUZ CULTURE-STOOL ([id number])on 08-03-2018 Bacteria identified Cx Nom (Unsp spec) NSS Normal [facility] Work Phone: Comment on above: No Salmonella or Sydney gella recovered. PATIENT NOT FASTINGP ERFORMED BY: [facility] [id number] Information: ADD O T P SRC:ST SRC:ST Bacteria identified Cx Nom (Unsp spec) NCI Normal [facility] Work Phone: Comment on above: No Campylobacter spe cies isolated. PATIENT NOT FASTINGP ERFORMED BY: [employer] [facility]Relm[facility]rapeuticsPsychiatric hospital [id number] Information: ADD O T P SRC:ST SRC:ST Campylobacter sp identified Org specific cx Nom (St) Final report Normal [facility] Work Phone: Comment on above: PATIENT NOT FASTINGP ERFORMED BY: [facility] [id number] Information: ADD O T P SRC:ST SRC:ST E. coli shiga-like toxin IA Ql (St) Negative Normal [facility] Work Phone: Comment on above: PATIENT NOT FASTINGP ERFORMED BY: CB [facility] [id number] RoadDublin [place] [id number] Information: ADD O T P SRC:ST SRC:ST Salmonella and Shigella sp identified Org specific cx Nom (St) Final report Normal [facility] Work Phone: Comment on above: PATIENT NOT FASTINGP ERFORMED BY: CB [facility] [id number] RoadDublin [place] [id number] Information: ADD O T P SRC:ST SRC:ST C-DIFFICILE, STOOL ([id number])on 08-03-2018 C. difficile toxin A+B IA Ql (St) Negative Normal [facility] Work Phone: Comment on above: PATIENT NOT FASTINGP ERFORMED BY: CB [facility] [id number] RoadSelect Specialty Hospital - [place] [place] [id number] LEUKOCYTE COUNT, FECAL ([phone])on 08-03-2018 WBC LM Ql (St) Final report Normal Comprehe nsive Internal Medicine Work Phone: Comment on above: PATIENT NOT FASTINGP ERFORMED BY: CB [facility] Fwaxsw5100 [address]Dublin [place] [id number] WBC LM Ql (St) NWBC Normal Comprehens gavi Internal Medicine Work Phone: Comment on above: No white blood cells seen. PATIENT NOT FASTINGP ERFORMED BY: CB [facility] Cafnjg4788 [address] [facility] [place] [id number] OCCULT BLOOD FECES SCREEN ([id number])on 08-03-2018 Lower GI hemoglobin IA Ql (St) Negative Normal [facility] Work Phone: Comment on above: PATIENT NOT FASTINGP ERFORMED BY: CB [facility] [id number] [address] [facility] [place] [id number] Ova + Parasite Examon 2018 Ova and parasites identified Concentration Nom (St) NOCP1 Normal Comprehen sive Internal Medicine Work Phone: Comment on above: No ova, cysts, or pa rasites seen. .One negative specimen does not rule out the possibility of aparasitic infection. PATIENT NOT FASTINGP ERFORMED BY: [facility]6[address] [facility] [id number] Ova and parasites identified LM Nom (Unsp spec) Final report Normal [facility] Work Phone: Comment on above: These results were o btained using wet preparation(s) and trichromestained smear. This test does not include testing for Cryptosporidiumparvum, Cyclospora, or Microsporidia. PATIENT NOT FASTINGP ERFORMED BY: [facility]6[address] [facility] [id number] MADAN (ANTINUCLEAR ANTIBODY) ( [id number])on 07-29-2018 Nuclear Ab Ql (S) Negative Normal Compreh ensive Internal Medicine Work Phone: Comment on above: PATIENT NOT FASTINGP ERFORMED BY: [facility]6[address] [facility] [id number] C-REACTIVE PROTEIN ([id number])on 07-29-2018 CRP mass conc 2.8 mg/L Normal 0.0-4.9 Comprehensi ve Internal Medicine Work Phone: Comment on above: PATIENT NOT FASTINGP ERFORMED BY: [facility]6[address] [facility] [id number] CBC W/AUTO DIFF WBC (39840)o n 07-29-2018 Basophils #/vol (Bld) 0.0 {x10E3/uL} Normal 0.0-0.2 [facility] Work Phone: Comment on above: PATIENT NOT FASTINGP ERFORMED BY: [facility]6[address] [facility] [id number] Basophils/100 WBC (Bld) 0 % Normal [facility] Work Phone: Comment on above: PATIENT NOT FASTINGP ERFORMED BY: [facility]6[address] [facility] [id number] Eosinophils #/vol (Bld) 0.0 {x10E3/uL} Normal 0.0-0.4 [facility] Work Phone: Comment on above: PATIENT NOT FASTINGP ERFORMED BY: CB [facility] Rldyoz3650 [address] [facility]Select [facility]in [place] [id number] Eosinophils/100 WBC (Bld) 0 % Normal [facility] Work Phone: Comment on above: PATIENT NOT FASTINGP ERFORMED BY: MO[facility]ES [facility] Vcmjle0977 [address] RoadSelect [facility]in [place] [id number] Erythrocyte distribution width Ratio (RBC) 14.7 % Normal 12.3-15.4 [facility] Work Phone: Comment on above: PATIENT NOT FASTINGP ERFORMED BY: [facility] Kljrhp2582 [address] [facility] [id number] Hematocrit Volume Fraction (Bld) 46.2 % Normal 37.5-51.0 [facility] Work Phone: Comment on above: PATIENT NOT FASTINGP ERFORMED BY: [facility] [id number] [address] [facility] [id number] Hemoglobin mass conc (Bld) 15.5 g/dL Normal 13.0-17.7 [facility] Work Phone: Comment on above: PATIENT NOT FASTINGP ERFORMED BY: [facility] Zrnjrk6217 [address] [facility] [place] [id number] Immature granulocytes #/vol (Bld) 0.0 {x10E3/uL} Normal 0.0-0.1 [facility] Work Phone: Comment on above: PATIENT NOT FASTINGP ERFORMED BY: [facility] Nnldtf9135 [address] [facility]in [place] [id number] Immature granulocytes/100 WBC (Bld) 0 % Normal [facility] Work Phone: Comment on above: PATIENT NOT FASTINGP ERFORMED BY: [facility] Wuwquo8603 [address]Dublin [place] [id number] Lymphocytes #/vol (Bld) 1.7 {x10E3/uL} Normal 0.7-3.1 [facility] Work Phone: Comment on above: PATIENT NOT FASTINGP ERFORMED BY: CB [facility] Zaplwu5034 [address]Select [facility] [place] [id number] Lymphocytes/100 WBC (Bld) 14 % Normal [facility] Work Phone: Comment on above: PATIENT NOT FASTINGP ERFORMED BY: MOISES [facility] Iymcvw5398 [address] RoadDublin [place] [id number] MCH Entitic mass (RBC) 29.2 pg Normal 26.6-33.0 Co [facility] Internal Medicine Work Phone: Comment on above: PATIENT NOT FASTINGP ERFORMED BY: CB [facility] Ntzdnb7314 [address] [facility] [id number] MCHC mass conc (RBC) 33.5 g/dL Normal 31.5-35.7 [facility] Internal Medicine Work Phone: Comment on above: PATIENT NOT FASTINGP ERFORMED BY: MOIESS [facility] Pqixuu7246 [address] [facility] [id number] MCV Entitic volume (RBC) 87 fL Normal 79-97 [facility] Work Phone: Comment on above: PATIENT NOT FASTINGP ERFORMED BY: CB [facility] Xznjli0549 [address] [facility]Select [facility] [place] [id number] Monocytes #/vol (Bld) 0.5 {x10E3/uL} Normal 0.1-0.9 [facility] Work Phone: Comment on above: PATIENT NOT FASTINGP ERFORMED BY: CB [facility] Tlgfda2948 [address] [facility] [id number] Monocytes/100 WBC (Bld) 4 % Normal [facility] Work Phone: Comment on above: PATIENT NOT FASTINGP ERFORMED BY: CB [facility] Fdyahy9771 [address]Select [facility] [place] [id number] Neutrophils #/vol (Bld) 9.4 {x10E3/uL} Abnormal 1.4-7.0 [facility] Work Phone: Comment on above: PATIENT NOT FASTINGP ERFORMED BY: CB [facility] Shmsjf2418 [address] [facility]Select [facility]in [place] [id number] Neutrophils/100 WBC (Bld) 82 % Normal [facility] Work Phone: Comment on above: PATIENT NOT FASTINGP ERFORMED BY: MOISES LabSyeda EscalantePumkdd0051 [address] [facility] [place] [id number] Platelets #/vol (Bld) 244 {x10E3/uL} Normal 150-379 [facility] Work Phone: Comment on above: PATIENT NOT FASTINGP ERFORMED BY: MOISES [facility] Fsyjnn8213 [address] [facility] [place] [id number] RBC #/vol (Bld) 5.31 {x10E6/uL} Normal 4.14-5.80 Comp rehensive Internal Medicine Work Phone: Comment on above: PATIENT NOT FASTINGP ERFORMED BY: MOISES LabLakeisha Oxhqbe4752 [address] [facility] [id number] WBC #/vol (Bld) 11.7 {x10E3/uL} Abnormal 3.4-10.8 Comp rehensive Internal Medicine Work Phone: Comment on above: PATIENT NOT FASTINGP ERFORMED BY: MOISES LabLakeisha Wtcmkj1026 [address] [facility] [id number] Folate (93734)on 07-29-2018 Folate mass conc 6.8 ng/mL Normal Comprehe nsive Internal Medicine Work Phone: Comment on above: A serum folate angelina ntration of less than 3.1 ng/mL isconsidered to represent clinical deficiency. PATIENT NOT FASTINGP ERFORMED BY: MOISES [facility] Rpzeni6944 [address] [facility] [id number] METABOLIC PANEL, COMPREHENSI VE ([id number])on 07-29-2018 Albumin mass conc 4.2 g/dL Normal 3.5-4.8 Compreh ensive Internal Medicine Work Phone: Comment on above: PATIENT NOT FASTINGP ERFORMED BY: MOISES [facility] Dcddqa1705 [address] [facility] [place] [id number] Albumin/Globulin mass ratio 1.1 {ratio} Abnormal 1.2-2.2 [facility] Work Phone: Comment on above: PATIENT NOT FASTINGP ERFORMED BY: [facility] Yjrgqs4444 [address] RoadDublin [place] [id number] ALP enzyme act/vol 100 [iU]/L Normal 39-117 Compre [facility] Internal Medicine Work Phone: Comment on above: PATIENT NOT FASTINGP ERFORMED BY: CB [facility] Sxjcgx0114 [address] RoadDublin [place] [id number] ALT enzyme act/vol 46 [iU]/L Abnormal 0-44 Compre [facility] Internal Medicine Work Phone: Comment on above: PATIENT NOT FASTINGP ERFORMED BY: CB [facility] Sxrvgl3395 [address] RoadDublin [place] [id number] AST enzyme act/vol 30 [iU]/L Normal 0-40 [facility] Work Phone: Comment on above: PATIENT NOT FASTINGP ERFORMED BY: CB [facility] Zxpvrj4325 [address] RoadDublin [place] [id number] Bilirubin mass conc 0.4 mg/dL Normal 0.0-1.2 Compr ensive Internal Medicine Work Phone: Comment on above: PATIENT NOT FASTINGP ERFORMED BY: CB [facility] Cqzxzn9044 [address] RoadDublin [place] [id number] Calcium mass conc 9.9 mg/dL Normal 8.6-10.[address] [facility] Work Phone: Comment on above: PATIENT NOT FASTINGP ERFORMED BY: CB [facility] Dxmumm0072 [address] RoadDublin [place] [id number] Chloride molar conc 96 mmol/L Normal 96-106 Compr ensive Internal Medicine Work Phone: Comment on above: PATIENT NOT FASTINGP ERFORMED BY: CB [facility] Bwqkhh2202 [address] RoadDublin [place] [id number] CO2 molar conc 23 mmol/L Normal 20-29 Comprehens gavi Internal Medicine Work Phone: Comment on above: PATIENT NOT FASTINGP ERFORMED BY: CB [facility] Agdvmx5676 [address] RoadDublin [place] [id number] Creatinine mass conc 1.60 mg/dL Abnormal 0.76-1.27 Comp [facility] Work Phone: Comment on above: PATIENT NOT FASTINGP ERFORMED BY: CB [facility] Rsacdk8630 [address] RoadDublin [place] [id number] GFR/1.73 sq M predicted among blacks CKD-EPI vol rate/area (S/P/Bld) 49 mL/min/1.73 Abnormal [facility] Work Phone: Comment on above: PATIENT NOT FASTINGP ERFORMED BY: CB [facility] Edezbz3532 [address] RoadDublin [place] [id number] GFR/1.73 sq M predicted among non-blacks CKD-EPI vol rate/area (S/P/Bld) 43 mL/min/1.73 Abnormal Comprehensiv e Internal Medicine Work Phone: Comment on above: PATIENT NOT FASTINGP ERFORMED BY: CB [facility] Gisqif2797 [address] [facility]Select [facility]in [place] [id number] Globulin mass conc (S) 3.9 g/dL Normal 1.5-4.5 Co mprehensive Internal Medicine Work Phone: Comment on above: PATIENT NOT FASTINGP ERFORMED BY: CB [facility] Fuprnp3025 [address] RoadSelect [facility]in [place] [id number] Glucose mass conc 95 mg/dL Normal 65-99 Compreh ensive Internal Medicine Work Phone: Comment on above: PATIENT NOT FASTINGP ERFORMED BY: CB [facility] Dwqmmz5669 [address] [facility]in [place] [id number] Potassium molar conc 5.0 mmol/L Normal 3.5-5.2 Comp rehensive Internal Medicine Work Phone: Comment on above: PATIENT NOT FASTINGP ERFORMED BY: CB [facility] Odpifl1711 [address]Dublin [place] [id number] Protein mass conc 8.1 g/dL Normal 6.0-8.5 Compreh ensive Internal Medicine Work Phone: Comment on above: PATIENT NOT FASTINGP ERFORMED BY: CB [facility] Slhfuk7442 [address] [facility] [place] [id number] Sodium molar conc 135 mmol/L Normal 134-144 Compreh ensive Internal Medicine Work Phone: Comment on above: PATIENT NOT FASTINGP ERFORMED BY: MOISES [facility] Wat[place]5095 [address]Dublin [place] [id number] Urea nitrogen mass conc 29 mg/dL Abnormal 8-27 [facility] Work Phone: Comment on above: PATIENT NOT FASTINGP ERFORMED BY: MOISES [facility] Jsarhc5607 [address] RoadDublin [place] [id number] Urea nitrogen/Creatinine mass ratio 18 mg/mg Normal 10-24 [facility] Work Phone: Comment on above: PATIENT NOT FASTINGP ERFORMED BY: CB [facility] Qjzoog1771 [address] RoadDublin [place] [id number] RHEUMATOID FACTOR-QUANT (869 31)on 07-29-2018 Rheumatoid factor Qn [IU]/mL Normal 0.0-13.9 Comp [facility] Internal Medicine Work Phone: Comment on above: PATIENT NOT FASTINGP ERFORMED BY: CB [facility] Wtgjkp7367 [address] RoadDublin [place] [id number] SED RATE ERYTHROCYTE ([id number]) on 07-29-2018 ESR Velocity (Bld) 8 mm/h Normal 0-30 [facility] Work Phone: Comment on above: PATIENT NOT FASTINGP ERFORMED BY: MOISES [facility] Teieco4043 [address] RoadDublin [place] [id number] TSH (83738)on 07-29-2018 Thyrotropin Qn 2.030 {uIU/mL} Normal 0.450-4.500 [facility] Work Phone: Comment on above: PATIENT NOT FASTINGP ERFORMED BY: CB [facility] Tnrqhm1017 [address] RoadDublin [place] [id number] VITAMIN B-12 (CYANOCOBALAMIN ) ([id number])on 07-29-2018 Cobalamin (Vitamin B12) mass conc 578 pg/mL Normal 232-1245 [facility] Internal Medicine Work Phone: Comment on above: PATIENT NOT FASTINGP ERFORMED BY: CB [facility] Trpdqe5756 [address] RoadDublin [place] [id number] OT Bone Density DEXA Axial S kenyatta 12-30-2017 OT Bone Density DEXA Axial Skeleton Patient Name: FRANKLIN BURTON Bone Density Exam Date/Time 12/30/2017 09:52:51 EDT Exam OT Bone Density DEXA Axial Skeleton Ordering Physician MD MARILUZ, [facility] Accession Number [id number] CPT4 Codes 67522 () Reason For Exam osteoporosis Report DXA BONE DENSITOMETRY: CLINICAL INDICATION: Osteoporosis COMPARISON: December 26, 2015 TECHNIQUE: Quantitative bone mineral densitometry of the hip and lumbar spine was performed with a dual energy x-ray observed absorptiometry device - [employer] W. Regions of interest were obtained through [...] and -2.5 is low bone density or osteopenia. T-score of -2.5 or lower is abnormally low, compatible with osteoporosis. T-score of -2.5 or less plus fragility fracture indicates severe osteoporosis. FINDINGS: Hip: Femoral neck Density: 0.655 g/cm2. [...] recommendations for prevention of bone loss include: 6574-8724 mg calcium intake per day for adults [...] Eva of Knowledge Evidence - based Summaries. [employer]. 2017 Report Dictated on Final Dictating Physician: JOY JAMISON Signed Date and Time: 12/30/2017 10:17 am Signed by: JOY JAMISON Transcribed Date and Time: 12/30/2017 10:18 Normal [facility] No Panel Information SARS-CoV-2 & FLU Antigen (Rapid) SARS-CoV-2 (COVID 19) [facility] Work Phone: Vital Signs Date Time Vital Sign Value Performing Clinician Facility 03-04-2025 14:40-0400 Body temperature 98.4 [degF] Dr. Matilde Noguera MD Work Phone: [facility] 03-04-2025 14:40-0400 Body weight 100.[address] Matilde Noguera MD Work Phone: [facility] 03-04-2025 14:40-0400 Diastolic blood pressure 68 mm[Hg] Dr. Matilde Noguera MD Work Phone: [facility] 03-04-2025 14:40-0400 Heart rate 73 /min Dr. Matilde Noguera MD Work Phone: [facility] 03-04-2025 14:40-0400 Respiratory rate 16 /min Dr. Matilde Noguera MD Work Phone: [facility] 03-04-2025 14:40-0400 SaO2% (BldA) [Mass fraction] 97 % Dr. Matilde Noguera MD Work Phone: [facility] 03-04-2025 14:40-0400 Systolic blood pressure 117 mm[Hg] Dr. Matilde Noguera MD Work Phone: [facility] 02-23-2025 14:41-0400 Body temperature 97.6 [degF] Dr. Matilde Noguera MD Work Phone: [facility] 02-23-2025 14:41-0400 Diastolic blood pressure 59 mm[Hg] Dr. Matilde Noguera MD Work Phone: [facility] 02-23-2025 14:41-0400 Heart rate 78 /min Dr. Matilde Noguera MD Work Phone: [facility] 02-23-2025 14:41-0400 Respiratory rate 18 /min Dr. Matilde Noguera MD Work Phone: [facility] 02-23-2025 14:41-0400 SaO2% (BldA) [Mass fraction] 96 % Dr. Matilde Noguera MD Work Phone: [facility] 02-23-2025 14:41-0400 Systolic blood pressure 98 mm[Hg] Dr. Matilde Noguera MD Work Phone: [facility] 02-23-2025 11:31-0400 Body height 172.[address] Matilde Noguera MD Work Phone: [facility] 02-23-2025 11:31-0400 Body mass index (BMI) [Ratio] 32.8 kg/m2 Dr. Matilde Noguera MD Work Phone: [facility] 02-23-2025 11:31-0400 Body weight [address] Matilde Noguera MD Work Phone: [facility] 01-13-2025 10:41-0400 Body height 160 cm Kyler Garcia MD Work Phone: [facility] 01-13-2025 10:41-0400 Body mass index (BMI) [Ratio] 38.33 kg/m2 Kyler Garcia MD Work Phone: [facility] 01-13-2025 10:41-0400 Body temperature 98.8 [degF] Kyler Garcia MD Work Phone: [facility] 01-13-2025 10:41-0400 Body weight 98.16 kg Kyler Garcia MD Work Phone: [facility] 01-13-2025 10:41-0400 Diastolic blood pressure 60 mm[Hg] Kyler Garcia MD Work Phone: [facility] 01-13-2025 10:41-0400 Heart rate 79 /min Kyler Garcia MD Work Phone: [facility] 01-13-2025 10:41-0400 Respiratory rate 16 /min Kyler Garcia MD Work Phone: [facility] 01-13-2025 10:41-0400 SaO2% (BldA) [Mass fraction] 96 % Kyler Garcia MD Work Phone: [facility] 01-13-2025 10:41-0400 Systolic blood pressure 106 mm[Hg] Kyler Garcia MD Work Phone: [facility] 01-05-2025 15:28-0400 Body temperature 98.5 [degF] Dr. Matilde Noguera MD Work Phone: [facility] 01-05-2025 15:28-0400 Diastolic blood pressure 77 mm[Hg] Dr. Matilde Noguera MD Work Phone: [facility] 01-05-2025 15:28-0400 Heart rate 73 /min Dr. Matilde Noguera MD Work Phone: [facility] 01-05-2025 15:28-0400 Respiratory rate 16 /min Dr. Matilde Noguera MD Work Phone: [facility] 01-05-2025 15:28-0400 SaO2% (BldA) [Mass fraction] 94 % Dr. Matilde Noguera MD Work Phone: [facility] 01-05-2025 15:28-0400 Systolic blood pressure 120 mm[Hg] Dr. Matilde Nougera MD Work Phone: [facility] 01-05-2025 12:17-0400 Body height 172.[address] Matilde Noguera MD Work Phone: [facility] 12-08-2024 04:37-0400 Body temperature 98.3 [degF] Dr. Matilde Noguera MD Work Phone: [facility] 12-08-2024 04:37-0400 Diastolic blood pressure 78 mm[Hg] Dr. Matilde Noguera MD Work Phone: [facility] 12-08-2024 04:37-0400 Heart rate 99 /min Dr. Matilde Noguera MD Work Phone: [facility] 12-08-2024 04:37-0400 Respiratory rate 19 /min Dr. Matilde Noguera MD Work Phone: [facility] 12-08-2024 04:37-0400 SaO2% (BldA) [Mass fraction] 95 % Dr. Matilde Noguera MD Work Phone: [facility] 12-08-2024 04:37-0400 Systolic blood pressure 124 mm[Hg] Dr. Matilde Noguera MD Work Phone: [facility] 12-08-2024 01:16-0400 Body mass index (BMI) [Ratio] 33.3 kg/m2 Dr. Matilde Noguera MD Work Phone: [facility] 12-08-2024 01:16-0400 Body weight 99.[address] Matilde Noguera MD Work Phone: [facility] 12-07-2024 10:12-0400 Body mass index (BMI) [Ratio] 33.3 kg/m2 Dr. Matilde Noguera MD Work Phone: [facility] 12-07-2024 10:12-0400 Body temperature 98.2 [degF] Dr. Matilde Noguera MD Work Phone: [facility] 12-07-2024 10:12-0400 Body weight 99.[address] Matilde Noguera MD Work Phone: [facility] 12-07-2024 10:12-0400 Diastolic blood pressure 68 mm[Hg] Dr. Matilde Noguera MD Work Phone: [facility] 12-07-2024 10:12-0400 Heart rate 54 /min Dr. Matilde Noguera MD Work Phone: [facility] 12-07-2024 10:12-0400 Respiratory rate 16 /min Dr. Matilde Noguera MD Work Phone: [facility] 12-07-2024 10:12-0400 SaO2% (BldA) [Mass fraction] 99 % Dr. Matilde Noguera MD Work Phone: [facility] 12-07-2024 10:12-0400 Systolic blood pressure 126 mm[Hg] Dr. Matilde Noguera MD Work Phone: [facility] 11-30-2024 14:01-0400 Body temperature 98.1 [degF] Daniel Marshall MD Work Phone: [facility] 11-30-2024 14:01-0400 Diastolic blood pressure 88 mm[Hg] Daniel Marshall MD Work Phone: [facility] 11-30-2024 14:01-0400 Heart rate 101 /min Daniel Marshall MD Work Phone: [facility] 11-30-2024 14:01-0400 Respiratory rate 18 /min Daniel Marshall MD Work Phone: [facility] 11-30-2024 14:01-0400 SaO2% (BldA) [Mass fraction] 98 % Daniel Marshall MD Work Phone: [facility] 11-30-2024 14:01-0400 Systolic blood pressure 154 mm[Hg] Daniel Marshall MD Work Phone: [facility] 11-26-2024 11:23-0400 Body height 172.7 cm Daniel Marshall MD Work Phone: [facility] 11-25-2024 13:36-0400 Body mass index (BMI) [Ratio] 34.68 kg/m2 Daniel Marshall MD Work Phone: [facility] 11-25-2024 13:36-0400 Body weight 103.42 kg Daniel Marshall MD Work Phone: [facility] 10-15-2024 13:17-0400 Body height 172.[address] Matilde Noguera MD Work Phone: [facility] 10-15-2024 13:17-0400 Body mass index (BMI) [Ratio] 34.8 kg/m2 Dr. Matilde Noguera MD Work Phone: [facility] 10-15-2024 13:17-0400 Body temperature 98.5 [degF] Dr. Matilde Noguera MD Work Phone: [facility] 10-15-2024 13:17-0400 Body weight 103.[address] Matilde Noguera MD Work Phone: [facility] 10-15-2024 13:17-0400 Diastolic blood pressure 78 mm[Hg] Dr. Matilde Noguera MD Work Phone: [facility] 10-15-2024 13:17-0400 Heart rate 83 /min Dr. Matilde Noguera MD Work Phone: [facility] 10-15-2024 13:17-0400 Respiratory rate 19 /min Dr. Matilde Noguera MD Work Phone: [facility] 10-15-2024 13:17-0400 SaO2% (BldA) [Mass fraction] 98 % Dr. Matilde Noguera MD Work Phone: [facility] 10-15-2024 13:17-0400 Systolic blood pressure 134 mm[Hg] Dr. Matilde Noguera MD Work Phone: [facility] 09-07-2024 08:59-0400 Body mass index (BMI) [Ratio] 34.9 kg/m2 Dr. Matilde Noguera MD Work Phone: [facility] 09-07-2024 08:59-0400 Body temperature 97.6 [degF] Dr. Matilde Noguera MD Work Phone: [facility] 09-07-2024 08:59-0400 Body weight 104.[address] Matilde Noguera MD Work Phone: [facility] 09-07-2024 08:59-0400 Diastolic blood pressure 66 mm[Hg] Dr. Matilde Noguera MD Work Phone: [facility] 09-07-2024 08:59-0400 Heart rate 74 /min Dr. Matilde Noguera MD Work Phone: [facility] 09-07-2024 08:59-0400 Respiratory rate 18 /min Dr. Matilde Noguera MD Work Phone: [facility] 09-07-2024 08:59-0400 SaO2% (BldA) [Mass fraction] 98 % Dr. Matilde Noguera MD Work Phone: [facility] 09-07-2024 08:59-0400 Systolic blood pressure 112 mm[Hg] Dr. Matilde Noguera MD Work Phone: [facility] 06-08-2024 09:47-0500 Body height 172.[address] Matilde Noguera MD Work Phone: [facility] 06-08-2024 09:47-0500 Body mass index (BMI) [Ratio] 34.8 kg/m2 Dr. Matilde Noguera MD Work Phone: [facility] 06-08-2024 09:47-0500 Body temperature 96.1 [degF] Dr. Matilde Noguera MD Work Phone: [facility] 06-08-2024 09:47-0500 Body weight 103.[address] Matilde Noguera MD Work Phone: [facility] 06-08-2024 09:47-0500 Diastolic blood pressure 78 mm[Hg] Dr. Matilde Noguera MD Work Phone: [facility] 06-08-2024 09:47-0500 Heart rate 61 /min Dr. Matilde Noguera MD Work Phone: [facility] 06-08-2024 09:47-0500 Respiratory rate 16 /min Dr. Matilde Noguera MD Work Phone: [facility] 06-08-2024 09:47-0500 SaO2% (BldA) [Mass fraction] 98 % Dr. Matilde Noguera MD Work Phone: [facility] 06-08-2024 09:47-0500 Systolic blood pressure 112 mm[Hg] Dr. Matilde Noguera MD Work Phone: [facility] 05-04-2024 07:26-0500 Body mass index (BMI) [Ratio] 35.6 kg/m2 Dr. Matilde Noguera MD Work Phone: [facility] 05-04-2024 07:26-0500 Body temperature 97.9 [degF] Dr. Matilde Noguera MD Work Phone: [facility] 05-04-2024 07:26-0500 Body weight 106.[address] Matilde Noguera MD Work Phone: [facility] 05-04-2024 07:26-0500 Diastolic blood pressure 78 mm[Hg] Dr. Matilde Noguera MD Work Phone: [facility] 05-04-2024 07:26-0500 Heart rate 87 /min Dr. Matilde Noguera MD Work Phone: [facility] 05-04-2024 07:26-0500 Respiratory rate 20 /min Dr. Matilde Noguera MD Work Phone: [facility] 05-04-2024 07:26-0500 SaO2% (BldA) [Mass fraction] 99 % Dr. Matilde Noguera MD Work Phone: [facility] 05-04-2024 07:26-0500 Systolic blood pressure 122 mm[Hg] Dr. Matilde Noguera MD Work Phone: [facility] 04-19-2024 19:52-0500 Body temperature 97 [degF] Dr. Matilde Noguera MD Work Phone: [facility] 04-19-2024 19:52-0500 Diastolic blood pressure 70 mm[Hg] Dr. Matilde Noguera MD Work Phone: [facility] 04-19-2024 19:52-0500 Heart rate 87 /min Dr. Matilde Noguera MD Work Phone: [facility] 04-19-2024 19:52-0500 Respiratory rate 17 /min Dr. Matilde Noguera MD Work Phone: [facility] 04-19-2024 19:52-0500 SaO2% (BldA) [Mass fraction] 94 % Dr. Matilde Noguera MD Work Phone: [facility] 04-19-2024 19:52-0500 Systolic blood pressure 108 mm[Hg] Dr. Matilde Noguera MD Work Phone: [facility] 04-19-2024 15:56-0500 Body mass index (BMI) [Ratio] 35.1 kg/m2 Dr. Matilde Noguera MD Work Phone: [facility] 04-19-2024 15:56-0500 Body weight 105.[address] Matilde Noguera MD Work Phone: [facility] 09-09-2023 09:08-0400 Body height 172.[address] Matilde Noguera Work Phone: [facility] 09-09-2023 09:08-0400 Body mass index (BMI) [Ratio] 35.2 kg/m2 Dr. Matilde Noguera Work Phone: [facility] 09-09-2023 09:08-0400 Body temperature 98.5 [degF] Dr. Matilde Noguera Work Phone: [facility] 09-09-2023 09:08-0400 Body weight 105.[address] Matilde Noguera Work Phone: [facility] 09-09-2023 09:08-0400 Diastolic blood pressure 68 mm[Hg] Dr. Matilde Noguera Work Phone: [facility] 09-09-2023 09:08-0400 Heart rate 56 /min Dr. Matilde Noguera Work Phone: [facility] 09-09-2023 09:08-0400 Respiratory rate 18 /min Dr. Matilde Noguera Work Phone: [facility] 09-09-2023 09:08-0400 SaO2% (BldA) [Mass fraction] 98 % Dr. Matilde Noguera Work Phone: [facility] 09-09-2023 09:08-0400 Systolic blood pressure 110 mm[Hg] Dr. Matilde Noguera Work Phone: [facility] 08-07-2023 09:17-0400 Body height 172.7 cm Sky Kerr MD Work Phone: [facility] 08-07-2023 09:17-0400 Body mass index (BMI) [Ratio] 34.67 kg/m2 Sky Kerr MD Work Phone: [facility] 08-07-2023 09:17-0400 Body weight 103.42 kg Sky Kerr MD Work Phone: [facility] 08-07-2023 09:17-0400 Diastolic blood pressure 65 mm[Hg] Sky Kerr MD Work Phone: [facility] 08-07-2023 09:17-0400 Heart rate 65 /min Sky Kerr MD Work Phone: [facility] 08-07-2023 09:17-0400 Systolic blood pressure 106 mm[Hg] Sky Kerr MD Work Phone: [facility] 07-23-2023 17:12-0500 Heart rate 96 /min Dr. Matilde Noguera Work Phone: [facility] 07-23-2023 15:45-0500 Body mass index (BMI) [Ratio] 34 kg/m2 Dr. Matilde Noguera Work Phone: [facility] 07-23-2023 15:45-0500 Body temperature 97.6 [degF] Dr. Matilde Noguera Work Phone: [facility] 07-23-2023 15:45-0500 Body weight 101.[address] Matilde Noguera Work Phone: [facility] 07-23-2023 15:45-0500 Diastolic blood pressure 82 mm[Hg] Dr. Matilde Noguera Work Phone: [facility] 07-23-2023 15:45-0500 Respiratory rate 16 /min Dr. Matilde Noguera Work Phone: [facility] 07-23-2023 15:45-0500 SaO2% (BldA) [Mass fraction] 97 % Dr. Matilde Noguera Work Phone: [facility] 07-23-2023 15:45-0500 Systolic blood pressure 120 mm[Hg] Dr. Matilde Noguera Work Phone: [facility] 06-09-2023 10:23-0500 Body mass index (BMI) [Ratio] 34 kg/m2 Dr. Matilde Noguera Work Phone: [facility] 06-09-2023 10:23-0500 Body temperature 99.2 [degF] Dr. Matilde Noguera Work Phone: [facility] 06-09-2023 10:23-0500 Body weight 101.[address] Matilde Noguera Work Phone: [facility] 06-09-2023 10:23-0500 Diastolic blood pressure 68 mm[Hg] Dr. Matilde Noguera Work Phone: [facility] 06-09-2023 10:23-0500 Heart rate 70 /min Dr. Matilde Noguera Work Phone: [facility] 06-09-2023 10:23-0500 Respiratory rate 18 /min Dr. Matilde Noguera Work Phone: [facility] 06-09-2023 10:23-0500 SaO2% (BldA) [Mass fraction] 99 % Dr. Matilde Noguera Work Phone: [facility] 06-09-2023 10:23-0500 Systolic blood pressure 112 mm[Hg] Dr. Matilde Noguera Work Phone: [facility] 04-02-2023 08:31-0500 Body height 172.[address] Matilde Noguera Work Phone: [facility] 04-02-2023 08:31-0500 Body mass index (BMI) [Ratio] 33.3 kg/m2 Dr. Matilde Noguera Work Phone: [facility] 04-02-2023 08:31-0500 Body temperature 97.8 [degF] Dr. Matilde Noguera Work Phone: [facility] 04-02-2023 08:31-0500 Body weight 99.[address] Matilde Noguera Work Phone: [facility] 04-02-2023 08:31-0500 Diastolic blood pressure 84 mm[Hg] Dr. Matilde Noguera Work Phone: [facility] 04-02-2023 08:31-0500 Heart rate 82 /min Dr. Matilde Noguera Work Phone: [facility] 04-02-2023 08:31-0500 Respiratory rate 16 /min Dr. Matilde Noguera Work Phone: [facility] 04-02-2023 08:31-0500 SaO2% (BldA) [Mass fraction] 99 % Dr. Matilde Noguera Work Phone: [facility] 04-02-2023 08:31-0500 Systolic blood pressure 128 mm[Hg] Dr. Matilde Noguera Work Phone: [facility] 03-17-2023 19:36-0400 Body height 172.[address] Matilde Noguera Work Phone: [facility] 03-17-2023 19:36-0400 Body temperature 97.5 [degF] Dr. Matilde Noguera Work Phone: [facility] 03-17-2023 19:36-0400 Diastolic blood pressure 70 mm[Hg] Dr. Matilde Noguera Work Phone: [facility] 03-17-2023 19:36-0400 Heart rate 104 /min Dr. Matilde Noguera Work Phone: [facility] 03-17-2023 19:36-0400 Respiratory rate 16 /min Dr. Matilde Noguera Work Phone: [facility] 03-17-2023 19:36-0400 SaO2% (BldA) [Mass fraction] 98 % Dr. Matilde Noguera Work Phone: [facility] 03-17-2023 19:36-0400 Systolic blood pressure 119 mm[Hg] Dr. Matilde Noguera Work Phone: [facility] 03-12-2023 09:56-0400 Body temperature 97.7 [degF] Dr. Matilde Noguera Work Phone: [facility] 03-12-2023 09:56-0400 Diastolic blood pressure 60 mm[Hg] Dr. Matilde Noguera Work Phone: [facility] 03-12-2023 09:56-0400 Heart rate 78 /min Dr. Matilde Noguera Work Phone: [facility] 03-12-2023 09:56-0400 Respiratory rate 16 /min Dr. Matilde Noguera Work Phone: [facility] 03-12-2023 09:56-0400 SaO2% (BldA) [Mass fraction] 99 % Dr. Matilde Noguera Work Phone: [facility] 03-12-2023 09:56-0400 Systolic blood pressure 106 mm[Hg] Dr. Matilde Noguera Work Phone: [facility] 02-28-2023 21:52-0400 Body temperature 98.2 [degF] Dr. Matilde Noguera Work Phone: [facility] 02-28-2023 21:52-0400 Diastolic blood pressure 71 mm[Hg] Dr. Matilde Noguera Work Phone: [facility] 02-28-2023 21:52-0400 Heart rate 96 /min Dr. Matilde Noguera Work Phone: [facility] 02-28-2023 21:52-0400 Respiratory rate 18 /min Dr. Matilde Noguera Work Phone: [facility] 02-28-2023 21:52-0400 SaO2% (BldA) [Mass fraction] 97 % Dr. Matilde Noguera Work Phone: [facility] 02-28-2023 21:52-0400 Systolic blood pressure 149 mm[Hg] Dr. Matilde Noguera Work Phone: [facility] 02-28-2023 21:16-0400 Diastolic blood pressure 81 mm[Hg] Dr. Matilde Noguera Work Phone: [facility] 02-28-2023 21:16-0400 Heart rate 91 /min Dr. Matilde Noguera Work Phone: [facility] 02-28-2023 21:16-0400 Systolic blood pressure 158 mm[Hg] Dr. Matilde Noguera Work Phone: [facility] 02-28-2023 15:15-0400 Body temperature 98.4 [degF] Dr. Matilde Noguera Work Phone: [facility] 02-28-2023 15:15-0400 Respiratory rate 16 /min Dr. Matilde Noguera Work Phone: [facility] 02-28-2023 15:15-0400 SaO2% (BldA) [Mass fraction] 97 % Dr. Matilde Noguera Work Phone: [facility] 02-28-2023 14:08-0400 Body mass index (BMI) [Ratio] 32 kg/m2 Dr. Matilde Noguera Work Phone: [facility] 02-28-2023 14:08-0400 Body weight 95.[address] Matilde Noguera Work Phone: [facility] 02-27-2023 13:07-0400 Body height 172.[address] Matilde Noguera Work Phone: [facility] 02-27-2023 07:40-0400 Body temperature 98.7 [degF] Dr. Matilde Noguera Work Phone: [facility] 02-27-2023 07:40-0400 Diastolic blood pressure 86 mm[Hg] Dr. Matilde Noguera Work Phone: [facility] 02-27-2023 07:40-0400 Heart rate 114 /min Dr. Matilde Noguera Work Phone: [facility] 02-27-2023 07:40-0400 Respiratory rate 19 /min Dr. Matilde Noguera Work Phone: [facility] 02-27-2023 07:40-0400 SaO2% (BldA) [Mass fraction] 97 % Dr. Matilde Noguera Work Phone: [facility] 02-27-2023 07:40-0400 Systolic blood pressure 137 mm[Hg] Dr. Matilde Noguera Work Phone: [facility] 02-27-2023 04:09-0400 Body height 170.[address] Matilde Noguera Work Phone: [facility] 02-27-2023 04:09-0400 Body mass index (BMI) [Ratio] 33.3 kg/m2 Dr. Matilde Noguera Work Phone: [facility] 02-27-2023 04:09-0400 Body weight 96.[address] Matilde Noguera Work Phone: [facility] 02-25-2023 17:56-0400 Body mass index (BMI) [Ratio] 32.2 kg/m2 Dr. Matilde Noguera Work Phone: [facility] 02-25-2023 17:56-0400 Body temperature 97 [degF] Dr. Matilde Noguera Work Phone: [facility] 02-25-2023 17:56-0400 Body weight 96.[address] Matilde Noguera Work Phone: [facility] 02-25-2023 17:56-0400 Diastolic blood pressure 75 mm[Hg] Dr. Matilde Noguera Work Phone: [facility] 02-25-2023 17:56-0400 Heart rate 96 /min Dr. Matilde Noguera Work Phone: [facility] 02-25-2023 17:56-0400 Respiratory rate 16 /min Dr. Matilde Noguera Work Phone: [facility] 02-25-2023 17:56-0400 SaO2% (BldA) [Mass fraction] 98 % Dr. Matilde Noguera Work Phone: [facility] 02-25-2023 17:56-0400 Systolic blood pressure 155 mm[Hg] Dr. Matilde Noguera Work Phone: [facility] 01-14-2023 09:38-0400 Body mass index (BMI) [Ratio] 31.7 kg/m2 Dr. Matilde Noguera Work Phone: [facility] 01-14-2023 09:38-0400 Body temperature 97.9 [degF] Dr. Matilde Noguera Work Phone: [facility] 01-14-2023 09:38-0400 Body weight 94.[address] Matilde Noguera Work Phone: [facility] 01-14-2023 09:38-0400 Diastolic blood pressure 80 mm[Hg] Dr. Matilde Noguera Work Phone: [facility] 01-14-2023 09:38-0400 Heart rate 70 /min Dr. Matilde Noguera Work Phone: [facility] 01-14-2023 09:38-0400 Respiratory rate 16 /min Dr. Matilde Noguera Work Phone: [facility] 01-14-2023 09:38-0400 SaO2% (BldA) [Mass fraction] 97 % Dr. Matilde Noguera Work Phone: [facility] 01-14-2023 09:38-0400 Systolic blood pressure 130 mm[Hg] Dr. Matilde Noguera Work Phone: [facility] 12-31-2022 16:45-0400 Diastolic blood pressure 75 mm[Hg] Elroy Thomas MD Work Phone: [facility] 12-31-2022 16:45-0400 Heart rate 77 /min Elroy Thomas MD Work Phone: [facility] 12-31-2022 16:45-0400 Respiratory rate 16 /min Elroy Thomas MD Work Phone: [facility] 12-31-2022 16:45-0400 SaO2% (BldA) [Mass fraction] 95 % Elroy Thomas MD Work Phone: [facility] 12-31-2022 16:45-0400 Systolic blood pressure 127 mm[Hg] Elroy Thomas MD Work Phone: [facility] 12-31-2022 14:40-0400 Body temperature 97 [degF] Elroy Thomas MD Work Phone: [facility] 12-31-2022 12:39-0400 Body height 162.6 cm Elroy Thomas MD Work Phone: [facility] 12-31-2022 12:39-0400 Body mass index (BMI) [Ratio] 36.73 kg/m2 Elroy Thomas MD Work Phone: [facility] 12-31-2022 12:39-0400 Body weight 97.07 kg Elroy Thomas MD Work Phone: [facility] 12-16-2022 13:45-0400 Body height 172.7 cm Elroy Thomas MD Work Phone: [facility] 12-16-2022 13:45-0400 Body mass index (BMI) [Ratio] 31.93 kg/m2 Elroy Thomas MD Work Phone: [facility] 12-16-2022 13:45-0400 Body temperature 98.6 [degF] Elroy Thomas MD Work Phone: [facility] 12-16-2022 13:45-0400 Body weight 95.25 kg Elroy Thomas MD Work Phone: [facility] 12-16-2022 13:45-0400 Diastolic blood pressure 77 mm[Hg] Elroy Thomas MD Work Phone: [facility] 12-16-2022 13:45-0400 Heart rate 91 /min Elroy Thomas MD Work Phone: [facility] 12-16-2022 13:45-0400 Systolic blood pressure 133 mm[Hg] Elroy Thomas MD Work Phone: [facility] 12-01-2022 11:37-0400 Body temperature 98.8 [degF] Angela Vasques APRN.CNP Work Phone: [facility] 12-01-2022 11:37-0400 Body weight 96.62 kg Angela Praisler-Wood ARCHITECTURAL EXAMINER.BLOOD OR BLOOD BANK TECHNICIAN Work Phone: [facility] 12-01-2022 11:37-0400 Diastolic blood pressure 70 mm[Hg] Angela Praisler-Wood ARCHITECTURAL EXAMINER.BLOOD OR BLOOD BANK TECHNICIAN Work Phone: [facility] 12-01-2022 11:37-0400 Heart rate 63 /min Angela Praisler-Wood ARCHITECTURAL EXAMINER.BLOOD OR BLOOD BANK TECHNICIAN Work Phone: [facility] 12-01-2022 11:37-0400 Respiratory rate 18 /min Angela Praisler-Wood ARCHITECTURAL EXAMINER.BLOOD OR BLOOD BANK TECHNICIAN Work Phone: [facility] 12-01-2022 11:37-0400 SaO2% (BldA) [Mass fraction] 97 % Angela Praisler-Wood ARCHITECTURAL EXAMINER.BLOOD OR BLOOD BANK TECHNICIAN Work Phone: [facility] 12-01-2022 11:37-0400 Systolic blood pressure 110 mm[Hg] Angela Praisler-Wood ARCHITECTURAL EXAMINER.BLOOD OR BLOOD BANK TECHNICIAN Work Phone: [facility] 11-28-2022 09:59-0400 Body mass index (BMI) [Ratio] 32.5 kg/m2 Dr. Matilde Noguera Work Phone: [facility] 11-28-2022 09:59-0400 Body temperature 97.8 [degF] Dr. Matilde Noguera Work Phone: [facility] 11-28-2022 09:59-0400 Body weight 97.[address] Matilde Noguera Work Phone: [facility] 11-28-2022 09:59-0400 Diastolic blood pressure 60 mm[Hg] Dr. Matilde Noguera Work Phone: [facility] 11-28-2022 09:59-0400 Heart rate 67 /min Dr. Matilde Noguera Work Phone: [facility] 11-28-2022 09:59-0400 Respiratory rate 16 /min Dr. Matilde Noguera Work Phone: [facility] 11-28-2022 09:59-0400 SaO2% (BldA) [Mass fraction] 98 % Dr. Matilde Noguera Work Phone: [facility] 11-28-2022 09:59-0400 Systolic blood pressure 110 mm[Hg] Dr. Matilde Noguera Work Phone: [facility] 11-27-2022 06:40-0400 Diastolic blood pressure 71 mm[Hg] Dr. Matilde Noguera Work Phone: [facility] 11-27-2022 06:40-0400 Heart rate 65 /min Dr. Matilde Noguera Work Phone: [facility] 11-27-2022 06:40-0400 Respiratory rate 18 /min Dr. Matilde Noguera Work Phone: [facility] 11-27-2022 06:40-0400 SaO2% (BldA) [Mass fraction] 99 % Dr. Maitlde Noguera Work Phone: [facility] 11-27-2022 06:40-0400 Systolic blood pressure 134 mm[Hg] Dr. Matilde Noguera Work Phone: [facility] 11-27-2022 03:50-0400 Body height 172.[address] Matilde Noguera Work Phone: [facility] 11-27-2022 03:50-0400 Body mass index (BMI) [Ratio] 33.2 kg/m2 Dr. Matilde Noguera Work Phone: [facility] 11-27-2022 03:50-0400 Body temperature 97.6 [degF] Dr. Matilde Noguera Work Phone: [facility] 11-27-2022 03:50-0400 Body weight 99.[address] Matilde Noguera Work Phone: [facility] 11-09-2022 08:10-0400 Respiratory rate 20 /min Dr. Matilde Noguera Work Phone: [facility] 11-09-2022 06:10-0400 Body height 172.[address] Matilde Noguera Work Phone: [facility] 11-09-2022 06:10-0400 Body mass index (BMI) [Ratio] 33.5 kg/m2 Dr. Matilde Noguera Work Phone: [facility] 11-09-2022 06:10-0400 Body temperature 96 [degF] Dr. Matilde Noguera Work Phone: [facility] 11-09-2022 06:10-0400 Body weight 99.[address] Matilde Noguera Work Phone: [facility] 11-09-2022 06:10-0400 Diastolic blood pressure 122 mm[Hg] Dr. Matilde Noguera Work Phone: [facility] 11-09-2022 06:10-0400 Heart rate 86 /min Dr. Matilde Noguera Work Phone: [facility] 11-09-2022 06:10-0400 SaO2% (BldA) [Mass fraction] 99 % Dr. Matilde Noguera Work Phone: [facility] 11-09-2022 06:10-0400 Systolic blood pressure 203 mm[Hg] Dr. Matilde Noguera Work Phone: [facility] 08-29-2022 10:00-0400 Body height 167.[address] Matilde Noguera Work Phone: [facility] 08-29-2022 10:00-0400 Body mass index (BMI) [Ratio] 33.2 kg/m2 Dr. Matilde Noguera Work Phone: [facility] 08-29-2022 10:00-0400 Body temperature 97.2 [degF] Dr. Matilde Noguera Work Phone: [facility] 08-29-2022 10:00-0400 Body weight 93.[address] Matilde Noguera Work Phone: [facility] 08-29-2022 10:00-0400 Diastolic blood pressure 70 mm[Hg] Dr. Matilde Noguera Work Phone: [facility] 08-29-2022 10:00-0400 Heart rate 63 /min Dr. Matilde Nogeura Work Phone: [facility] 08-29-2022 10:00-0400 Respiratory rate 14 /min Dr. Matilde Noguera Work Phone: [facility] 08-29-2022 10:00-0400 SaO2% (BldA) [Mass fraction] 96 % Dr. Matilde Noguera Work Phone: [facility] 08-29-2022 10:00-0400 Systolic blood pressure 124 mm[Hg] Dr. Matilde Noguera Work Phone: [facility] 06-25-2022 10:55-0500 Body temperature 98.6 [degF] Dr. Matilde Noguera Work Phone: [facility] 06-25-2022 10:55-0500 Diastolic blood pressure 61 mm[Hg] Dr. Matilde Noguera Work Phone: [facility] 06-25-2022 10:55-0500 Heart rate 62 /min Dr. Matilde Noguera Work Phone: [facility] 06-25-2022 10:55-0500 Respiratory rate 16 /min Dr. Matilde Noguera Work Phone: [facility] 06-25-2022 10:55-0500 SaO2% (BldA) [Mass fraction] 96 % Dr. Matilde Noguera Work Phone: [facility] 06-25-2022 10:55-0500 Systolic blood pressure 125 mm[Hg] Dr. Matilde Noguera Work Phone: [facility] 06-25-2022 08:32-0500 Body height 167.[address] Matilde Noguera Work Phone: [facility] 06-25-2022 08:32-0500 Body mass index (BMI) [Ratio] 33.4 kg/m2 Dr. Matilde Noguera Work Phone: [facility] 06-25-2022 08:32-0500 Body weight [address] Matilde Noguera Work Phone: [facility] 06-14-2022 09:05-0500 Body temperature 97.2 [degF] Dr. Matilde Noguera Work Phone: [facility] 06-14-2022 09:05-0500 Body weight 94.[address] Matilde Noguera Work Phone: [facility] 06-14-2022 09:05-0500 Diastolic blood pressure 80 mm[Hg] Dr. Matilde Noguera Work Phone: [facility] 06-14-2022 09:05-0500 Heart rate 61 /min Dr. Matilde Noguera Work Phone: [facility] 06-14-2022 09:05-0500 Respiratory rate 17 /min Dr. Matilde Noguera Work Phone: [facility] 06-14-2022 09:05-0500 SaO2% (BldA) [Mass fraction] 99 % Dr. Matilde Noguera Work Phone: [facility] 06-14-2022 09:05-0500 Systolic blood pressure 146 mm[Hg] Dr. Matilde Noguera Work Phone: [facility] 06-03-2022 16:31-0500 Body mass index (BMI) [Ratio] 31.7 kg/m2 Dr. Matilde Noguera Work Phone: [facility] 06-03-2022 16:31-0500 Body temperature 97.7 [degF] Dr. Matilde Noguera Work Phone: [facility] 06-03-2022 16:31-0500 Body weight 94.[address] Matilde Noguera Work Phone: [facility] 06-03-2022 16:31-0500 Diastolic blood pressure 80 mm[Hg] Dr. Matilde Noguera Work Phone: [facility] 06-03-2022 16:31-0500 Heart rate 57 /min Dr. Matilde Noguera Work Phone: [facility] 06-03-2022 16:31-0500 Respiratory rate 16 /min Dr. Matilde Noguera Work Phone: [facility] 06-03-2022 16:31-0500 SaO2% (BldA) [Mass fraction] 99 % Dr. Matilde Noguera Work Phone: [facility] 06-03-2022 16:31-0500 Systolic blood pressure 148 mm[Hg] Dr. Matilde Noguera Work Phone: [facility] 01-19-2022 14:17-0400 SaO2% (BldA) [Mass fraction] 97 % RAHEL MATA Work Phone: [facility] Work Phone: 01-19-2022 14:13-0400 Body temperature 98 [degF] RAHEL MATA Work Phone: [facility] Work Phone: 01-19-2022 14:13-0400 Diastolic blood pressure 78 mm[Hg] RAHEL MATA Work Phone: [facility] Work Phone: 01-19-2022 14:13-0400 Heart rate 82 /min RAHEL MATA Work Phone: [facility] Work Phone: 01-19-2022 14:13-0400 Respiratory rate 18 /min RAHEL VOSSONNELL Work Phone: [facility] Work Phone: 01-19-2022 14:13-0400 Systolic blood pressure 156 mm[Hg] RAHEL MATA Work Phone: [facility] Work Phone: 01-19-2022 11:21-0400 Body height 172.72 cm RAHEL [facility] Work Phone: [facility] Work Phone: 01-19-2022 11:21-0400 Body weight 91.2 kg RAHEL MATA Work Phone: [facility] Work Phone: 01-18-2022 23:45-0400 Body mass index (BMI) [Ratio] 30.5 kg/m2 RAHEL MATA Work Phone: [facility] Work Phone: 01-18-2022 23:37-0400 Body temperature 98.7 [degF] [facility] Work Phone: 01-18-2022 23:37-0400 Diastolic blood pressure 94 mm[Hg] [facility] Work Phone: 01-18-2022 23:37-0400 Heart rate 86 /min [facility] Work Phone: 01-18-2022 23:37-0400 Respiratory rate 13 /min [facility] Work Phone: 01-18-2022 23:37-0400 SaO2% (BldA) [Mass fraction] 97 % [facility] Work Phone: 01-18-2022 23:37-0400 Systolic blood pressure 171 mm[Hg] [facility] Work Phone: 01-18-2022 18:15-0400 Body height 167.64 cm [facility] Work Phone: 01-18-2022 18:15-0400 Body mass index (BMI) [Ratio] 33.7 kg/m2 [facility] Work Phone: 01-18-2022 18:15-0400 Body weight 94.8 kg [facility] Work Phone: 04-25-2020 11:26-0500 BMI (Body Mass Index) 34.95 kg/m2 [facility] [place] [facility]-25-2020 11:26-0500 Body Temperature 100.6 [degF] [facility] [place] [place] 04-25-2020 11:26-0500 Body weight 95.25 kg [facility] [place] 04-25-2020 11:26-0500 BP Diastolic 86 mm[Hg] [facility] [place] [place] 04-25-2020 11:26-0500 BP Systolic 120 mm[Hg] [facility] [employer] [facility] [place] 04-25-2020 11:26-0500 Height 165.1 cm [facility]el [employer] [facility], [place] 04-25-2020 11:26-0500 Pulse (Heart Rate) 83 /min Cornel Narayanan [facility], [place] 04-25-2020 11:26-0500 Pulse Oximetry 96 % [employer] [employer] [facility] [place] 04-25-2020 11:26-0500 Respiratory Rate 16 /min [facility]elkisha [facility] [place] 04-07-2020 06:09-0500 Body Temperature 98.1 [degF] [employer] [place] 04-07-2020 06:09-0500 BP Diastolic 78 mm[Hg] [facility] [employer] [facility] [place] , [place] 04-07-2020 06:09-0500 BP Systolic 150 mm[Hg] [facility] [employer] [facility] [place] [facility] [place] 04-07-2020 06:09-0500 Pulse (Heart Rate) 91 /min [employer] [facility] [employer] [facility] [place] 04-07-2020 06:09-0500 Pulse Oximetry 95 % [facility] [place] , [place] 04-07-2020 06:09-0500 Respiratory Rate 18 /min [facility] [place] 04-06-2020 08:50-0500 BMI (Body Mass Index) 35.02 kg/m2 [facility] [place] 04-06-2020 08:50-0500 Body weight 98.43 kg [facility] Narayanan [facility] , [place] 04-06-2020 08:50-0500 Height 167.6 cm [facility] Narayanan [facility] [place] , [place] 03-14-2020 09:59-0400 BMI (Body Mass Index) 35.15 kg/m2 Bravo Narayanan [facility], [place] 03-14-2020 09:59-0400 Body Temperature 97.2 [degF] [facility] [place] 03-14-2020 09:59-0400 Body weight 98.79 kg [facility] [place] 03-14-2020 09:59-0400 BP Diastolic 85 mm[Hg] Bravo Zarco [facility] [place] , [place] 03-14-2020 09:59-0400 BP Systolic 135 mm[Hg] Bravo Zarco [facility] [place] , [place] 03-14-2020 09:59-0400 Height 167.6 cm Bravo Zarco [facility] , [place] 03-14-2020 09:59-0400 Pulse (Heart Rate) 65 /min Bravo Narayanan [facility], [place] 03-14-2020 09:59-0400 Pulse Oximetry 98 % [facility] [place] 12-15-2019 10:27-0400 Body Temperature 98.6 [degF] Daniel [facility] [place] 12-15-2019 10:27-0400 BP Diastolic 84 mm[Hg] [facility] [place] [facility] [place] 12-15-2019 10:27-0400 BP Systolic 137 mm[Hg] [facility] [place] [facility] [place] 12-15-2019 10:27-0400 Pulse (Heart Rate) 60 /min Daniel [facility] [place], [place] 12-15-2019 10:27-0400 Pulse Oximetry 99 % Daniel [facility] , [place] 12-15-2019 10:27-0400 Respiratory Rate 18 /min [facility] [place] [place] 12-13-2019 18:30-0400 BMI (Body Mass Index) 31.47 kg/m2 Daniel [facility] [place], [place] 12-13-2019 18:30-0400 Body weight 88.45 kg Daniel Marshall [facility] , [place] 12-13-2019 18:30-0400 Height 167.6 cm Daniel Marshall [facility] , [place] 11-15-2019 08:15-0400 BMI (Body Mass Index) 32.56 kg/m2 Fang DoughertyIronwood [employer] [facility] [place] 11-15-2019 08:15-0400 Body Temperature 97.7 [degF] Fang [facility] [place] 11-15-2019 08:15-0400 Body weight 91.49 kg Fang [facility]an [facility] [place] 11-15-2019 08:15-0400 BP Diastolic 76 mm[Hg] Fang [facility]hertyi [facility] [place] 11-15-2019 08:15-0400 BP Systolic 127 mm[Hg] Fang Dougherty [facility] [place] 11-15-2019 08:15-0400 Height 167.6 cm Fang [facility] [place] 11-15-2019 08:15-0400 Pulse (Heart Rate) 51 /min Fang [facility] [place] 11-15-2019 08:15-0400 Respiratory Rate 18 /min Fang Smallwood [facility] [place] 11-08-2019 12:21-0400 BP Diastolic 70 mm[Hg] Fang [facility]hertyi [facility] [place] 11-08-2019 12:21-0400 BP Systolic 122 mm[Hg] Fang Doughertyi [facility] [place] 11-08-2019 12:21-0400 Pulse (Heart Rate) 61 /min Fang [facility] [place] 11-08-2019 12:21-0400 Respiratory Rate 16 /min Fang Smallwood [facility] [place] 11-08-2019 08:13-0400 BMI (Body Mass Index) 32.73 kg/m2 Fang Smallwood [facility]- [place], [place] 11-08-2019 08:13-0400 Body Temperature 98.2 [degF] Fang [facility] [place], [place] 11-08-2019 08:13-0400 Body weight 91.99 kg Fang Narayanan [facility] [place] 11-08-2019 08:13-0400 Height 167.6 cm Fang Dougherty [facility] [place] 11-01-2019 12:15-0400 BP Diastolic 79 mm[Hg] [facility] [place] [place] 11-01-2019 12:15-0400 BP Systolic 149 mm[Hg] [facility] [place] [place] 11-01-2019 12:15-0400 Pulse (Heart Rate) 57 /min Fang [facility]hertyFormerly [facility], [place] 11-01-2019 12:15-0400 Respiratory Rate 14 /min [facility] [place] [place] 11-01-2019 08:11-0400 BMI (Body Mass Index) 32.6 kg/m2 [facility] [place] [place] 11-01-2019 08:11-0400 Body Temperature 97.59 [degF] [facility] [place] [place] 11-01-2019 08:11-0400 Body weight 91.63 kg Fang Narayanan [facility], [place] 11-01-2019 08:11-0400 Height 167.6 cm Fang Dougherty [facility] [place] 10-25-2019 16:58-0400 Body Temperature 97.39 [degF] [facility] [place] 10-25-2019 16:58-0400 BP Diastolic 83 mm[Hg] [facility] [place] , [place] 10-25-2019 16:58-0400 BP Systolic 136 mm[Hg] [facility] [place] , [place] 10-25-2019 16:58-0400 Pulse (Heart Rate) 74 /min [facility] Rachel [facility] [place], [place] 10-25-2019 16:58-0400 Pulse Oximetry 98 % [facility] EbenAllegiance [facility] , [place] 10-25-2019 16:58-0400 Respiratory Rate 16 /min Mary Star[facility] Ramos [facility], [place] 10-25-2019 08:45-0400 BMI (Body Mass Index) 31.97 kg/m2 Mary Star[facility] Cent[facility]risha Ramos [facility], [place] 10-25-2019 08:45-0400 Body weight 89.[address] [facility] Rachel [facility] , [place] 10-25-2019 08:45-[address] [facility] Rachel [facility] , [place] 04-02-2019 10:40-0500 Body Temperature 98.4 [degF] [facility] [place] 04-02-2019 10:40-0500 BP Diastolic 77 mm[Hg] [facility]Psych[facility] DistraRank[facility], [place] 04-02-2019 10:40-0500 BP Systolic 138 mm[Hg] Fang [facility] DistraRank[facility], [place] 04-02-2019 10:40-0500 Pulse (Heart Rate) 75 /min [facility] [place] 04-02-2019 10:40-0500 Respiratory Rate 17 /min [facility] [place] 08-12-2018 11:15-0400 BMI (Body Mass Index) 36.07 kg/m2 [facility] Work Phone: 08-12-2018 11:15-0400 BP Diastolic 88 mm[Hg] Abby [facility] Internal Medicine Work Phone: Comment on above: Patient Position: Sitting; Cuff Location : Left Arm; Cuff Size: Large 08-12-2018 11:15-0400 BP Systolic 132 mm[Hg] Abby [facility] Internal Medicine Work Phone: Comment on above: Patient Position: Sitting; Cuff Location : Left Arm; Cuff Size: Large 08-12-2018 11:15-0400 BSA (Body Surface Area) 2 m2 Abby [facility] Internal Medicine Work Phone: 08-12-2018 11:15-0400 Height 162.56 cm Abby [facility] Internal Medicine Work Phone: 08-12-2018 11:15-0400 Pulse (Heart Rate) 62 /min Abby [facility] Work Phone: Comment on above: Pattern: Regular 08-12-2018 11:15-0400 Pulse Oximetry 97 % Abby [facility] Work Phone: Comment on above: Room air 08-12-2018 11:15-0400 Respiratory Rate 18 /min Abby [facility] Work Phone: Comment on above: Pattern: Unlabored 08-12-2018 11:15-0400 Weight 95.31 kg Abby [facility] Work Phone: 07-29-2018 10:35-0400 BMI (Body Mass Index) 36.05 kg/m2 Abby [facility] Work Phone: 07-29-2018 10:35-0400 Body Temperature 97.2 [degF] Abby [facility] Work Phone: Comment on above: Method: Temporal 07-29-2018 10:35-0400 BP Diastolic 90 mm[Hg] Abby [facility] Work Phone: Comment on above: Patient Position: Sitting; Cuff Location : Left Arm; Cuff Size: Standard 07-29-2018 10:35-0400 BP Systolic 137 mm[Hg] Abby [facility] Work Phone: Comment on above: Patient Position: Sitting; Cuff Location : Left Arm; Cuff Size: Standard 07-29-2018 10:35-0400 BSA (Body Surface Area) 2 m2 Abby [facility] Work Phone: 07-29-2018 10:35-0400 Height 162.56 cm Abby [facility] Work Phone: 07-29-2018 10:35-0400 Pulse (Heart Rate) 54 /min Abby Mal[facility] Internal Medicine Work Phone: Comment on above: Pattern: Regular 07-29-2018 10:35-0400 Pulse Oximetry 99 % Abby [facility] Work Phone: Comment on above: Room air 07-29-2018 10:35-0400 Respiratory Rate 16 /min Abby Arango [facility] Internal Medicine Work Phone: Comment on above: Pattern: Unlabored 07-29-2018 10:35-0400 Weight 95.26 kg Abby Arango [facility] Internal Medicine Work Phone: Encounters Encounter Date Encounter Type Care Provider Facility Start: 03-30-2025 ambulatory Kael Decker Facloretta lity:[facility] Start: 03-14-2025 ambulatory Jesus Milligan Facility:[facility] Start: 03-14-2025 End: 03-14-2025 ambulatory Kyler Garcia Facility:[facility] Start: 03-04-2025 End: 03-04-2025 Patient encounter procedure Kerri MADRID -[place] [facility] Work Phone: Start: 03-04-2025 End: 03-04-[address] Matilde Noguera MD Work Phone: -[facility] Start: 02-23-2025 End: 02-23-2025 Admission to same day surgery center Dr. Kael Decker MD -[facility] Start: 02-23-2025 End: 02-23-[address] Matilde Noguera MD Work Phone: -[facility] Start: 02-17-2025 End: 02-17-2025 ambulatory KYLER GARCIA Facility:[facility] [place] Start: 02-04-2025 ambulatory [facility] LAT[facility] F acility:[facility] Start: 02-03-2025 End: 02-03-2025 [facility] [place] Start: 02-01-2025 End: 02-01-[address] Kael Decker MD -Cat Scan [facility] Work Phone: Start: 02-01-2025 End: 02-01-2025 ambulatory Kyler Garcia MD Work Phone: Internal Medicine [place] [id number] Start: 02-01-2025 End: 02-01-2025 ambulatory Matilde Noguera Facility:[facility] Start: 01-31-2025 End: 01-31-2025 Telephone encounter Kyler Garcia MD Work Phone: Mobile [employer] Comment on above: [id number] Palliative Car e Start: 01-15-2025 End: 01-15-2025 Telephone encounter Kyler Garcia MD Work Phone: [facility] [place] Start: 01-14-2025 End: 01-14-2025 ambulatory Kyler Garcia MD Work Phone: [facility] [place] Start: 01-13-2025 End: 01-13-2025 ambulatory KYLER GARCIA Facility:[facility] [place] Start: 01-13-2025 End: 01-13-2025 Office outpatient new 60 minutes Kyler Garcia MD Work Phone: [facility] Comment on above: [facility] Screening for depression; Encounter for screening examination for other mental health and behavioral disorders; Gross hematuria; ESRD (end stage renal disease) ([facility]); 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 ([facility]); Encounter for health-related screening; Chronic heart failure, unspecified heart failure type ([facility]); ROYAL (obstructive sleep apnea); Heart failure with preserved ejection fraction, unspecified HF chronicity ([facility]); Chronic midline low back pain without sciatica; Chronic illness; Bilateral hearing loss, unspecified hearing loss type; Encounter for screening for malignant neoplasm of prostate; Encounter for screening for cardiovascular disorders; Hyperlipidemia, unspecified hyperlipidemia type; Benign prostatic hyperplasia without lower urinary tract symptoms; Neuropathy; Chronic insomnia; Gastroesophageal reflux disease, unspecified whether esophagitis present; Recurrent UTI (urinary tract infection); Type 2 diabetes mellitus with diabetic neuropathy, without long-term current use of insulin ([facility]); Elevated PSA Start: 01-13-2025 End: 01-13-2025 ambulatory KYLER GARCIA Facility:[facility] [place] Start: 01-05-2025 End: 01-05-2025 Emergency department patient visit Dr. Matilde Noguera MD Work Phone: -Emergency Department Work Phone: Start: 12-08-2024 End: 12-08-2024 Emergency department patient visit Beau Cardenas DO -Emergency Department Work Phone: Start: 12-07-2024 End: 12-07-[address] 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 Matilde Noguera MD Work Phone: [facility] Work Phone: Start: 09-10-2024 End: 09-10-2024 ambulatory INO SUMMERS [facility] Start: 09-07-2024 End: 09-07-[address] Matilde Noguera MD -[place] [facility] Work Phone: Start: 09-07-2024 End: 09-07-2024 ambulatory Matilde Noguera Facility:[facility] Start: 07-20-2024 End: 07-20-[address] Matilde Noguera MD Work Phone: [facility] Work Phone: Start: 07-20-2024 End: 07-20-[address] Kael Decker MD -Laboratory Work Phone: Start: 07-20-2024 End: 07-20-2024 ambulatory Kael Decker Facility:[facility] Start: 06-08-2024 End: 06-08-[address] Matilde Noguera MD -[place] [facility] Work Phone: Start: 06-08-2024 End: 06-08-2024 ambulatory Matilde Noguera Facility:[facility] Start: 05-04-2024 End: 05-04-[address] Matilde Noguera MD -[place] [facility] Work Phone: Start: 05-04-2024 End: 05-04-2024 ambulatory Matilde Noguera Facility:[facility] Start: 04-19-2024 End: 04-19-2024 Emergency department patient visit Dr. Jesus Christian DO -Emergency Department Work Phone: Start: 09-09-2023 End: 09-09-[address] Matilde Noguera Work Phone: [facility] Work Phone: Start: 09-09-2023 End: 09-09-[address] Matilde Noguera Work Phone: [facility] [facility] Work Phone: Start: 08-07-2023 End: 08-07-2023 Office outpatient new 30 minutes Sky Kerr MD Work Phone: [facility] Comment on above: Pain due to total hi p replacement, initial encounter ([facility]) ([facility]); H/O total hip arthroplasty, right; Trochanteric bursitis of right hip Start: 08-07-2023 End: 08-07-2023 Subsequent hospital visit by physician Sky Kerr MD Work Phone: [facility] Comment on above: Pain due to total hi p replacement, initial encounter (HCC) ([facility]) Start: 07-23-2023 End: 07-23-[address] Matilde Noguera Work Phone: [facility] Internal Medicine Work Phone: Start: 06-09-2023 End: 06-09-[address] Matilde Noguera Work Phone: [facility] Internal Medicine Work Phone: Start: 05-26-2023 End: 05-26-[address] Matilde Noguera Work Phone: [facility] Work Phone: Start: 05-26-2023 End: 05-26-[address] [facility] Start: 04-18-2023 Non-patient / Non-visit Dr. Moon Work Phone: [facility] Internal Medicine Work Phone: Start: 04-03-2023 End: 04-03-[address] Matilde Noguera Work Phone: [facility] Work Phone: Start: 04-03-2023 End: 04-03-[address] Matilde Noguera Work Phone: [facility]-Laboratory Work Phone: Start: 04-02-2023 End: 04-02-[address] Matilde Noguera Work Phone: [facility] Internal Medicine Work Phone: Start: 03-17-2023 End: 03-17-2023 Emergency department patient visit Dr. Matilde Noguera Work Phone: [facility]-Emergency Department Work Phone: Start: 03-12-2023 End: 03-12-[address] Matilde Noguera Work Phone: [facility] Internal Medicine Work Phone: Start: 03-01-2023 End: 03-10-2023 Evaluation and management of inpatient JAMES YADAV Facility:[facility] Start: 02-28-2023 Non-patient / Non-visit Dr. Moon Work Phone: [facility] Inpatient Physicians Work Phone: Start: 02-27-2023 Non-patient / Non-visit Dr. Moon Work Phone: [facility] Work Phone: Start: 02-27-2023 End: 02-28-2023 Evaluation and management of inpatient Dr. Matilde Noguera Work Phone: [facility]-Progressive Care Unit Work Phone: Start: 02-25-2023 End: 02-25-2023 Emergency department patient visit Dr. Matilde Noguera Work Phone: [facility]-Emergency Department Work Phone: Start: 01-14-2023 End: 01-14-[address] Matilde Noguera Work Phone: [facility] Internal Medicine Work Phone: Start: 12-31-2022 End: 12-31-2022 Subsequent hospital visit by physician Elroy Thomas MD Work Phone: [facility] MAIN OR Comment on above: Peritoneal dialysis catheter in place (CMS/HCC) (HCC) (Primary Dx) Start: 12-19-2022 Admission to [facility] Breonna Melendez PA-C Work Phone: [facility] Start: 12-19-2022 ambulatory Breonna Alex on PA-C Work Phone: [facility] Start: 12-19-2022 Telephone encounter Elroy whitlock MD Work Phone: [facility] Comment on above: Release of Informati on Start: 12-16-2022 End: 12-16-2022 Office outpatient new 30 minutes Elroy Thomas MD Work Phone: [facility] Comment on above: ESRD (end stage judd l disease) (HCC) (Primary Dx) Start: 12-02-2022 Telephone encounter Elroy whitlock MD Work Phone: [facility] Start: 12-01-2022 End: 12-01-2022 Patient encounter procedure Angela Vasqeus APRN.CNP Work Phone: [facility] Comment on above: Sore throat (Primary Dx); Thrush (oral) Start: 11-28-2022 End: 11-28-[address] Matilde Noguera Work Phone: [facility] Internal Medicine Work Phone: Start: 11-27-2022 End: 11-27-2022 Emergency department patient visit Dr. Matilde Noguera Work Phone: [facility]-Emergency Department Work Phone: Start: 11-09-2022 End: 11-09-2022 Emergency department patient visit Dr. Matilde Noguera Work Phone: [facility]-Emergency Department Start: 10-15-2022 Haim Mendez MD Work Phone: [facility] Internal Medicine Start: 09-10-2022 End: 09-10-[address] Matilde Noguera Work Phone: [facility] Work Phone: Start: 09-10-2022 End: 09-10-[address] Matilde Noguera Work Phone: [facility]-Laboratory Start: 08-29-2022 End: 08-29-[address] Matilde Noguera Work Phone: [place] [facility] Start: 06-25-2022 Non-patient / Non-visit Dr. Moon Work Phone: [facility] Start: 06-25-2022 End: 06-25-2022 Admission to same day surgery center Dr. Matilde Noguera Work Phone: [facility]-Endoscopy Start: 06-25-2022 End: 06-25-[address] Matilde Noguera Work Phone: [facility] Work Phone: Start: 06-14-2022 End: 06-14-[address] Matilde Noguera Work Phone: [facility] Start: 06-03-2022 End: 06-03-[address] Matilde Noguera Work Phone: [place] [facility] Start: 01-19-2022 Non-patient / Non-visit RAHEL MATA Work Phone: [facility] Inpatient Physicians Start: 01-18-2022 Non-patient / Non-visit RAHEL MATA Work Phone: [facility] Inpatient Physicians Start: 01-18-2022 End: 01-19-2022 Evaluation and management of inpatient [facility]-Progressive Care Unit Start: 01-18-2022 End: 01-19-2022 observation encounter RAHEL MATA Work Phone: [facility] Work Phone: Start: 01-19-2021 End: 01-19-2021 Patient encounter status Fang Smallwood Work Phone: [facility] [address] [facility] Start: 01-19-2021 End: 01-19-2021 Subsequent hospital visit by physician Fang Smallwood Work Phone: [facility] [address] [facility] Comment on above: Encounter for other preprocedural examination; Chronic kidney disease, stage 4 (severe) (HCC) Start: 04-25-2020 End: 04-25-2020 Emergency department patient visit Cornel Lozano Work Phone: [facility] Emergency Dept Comment on above: Urinary tract infect ion without hematuria, site unspecified (Primary Dx); Other fatigue Start: 04-06-2020 End: 04-07-2020 Subsequent hospital visit by physician Bravo Zarco Work Phone: [facility] MED SURG Comment on above: Arrived Start: 03-14-2020 End: 03-14-2020 Subsequent hospital visit by physician Bravo Zarco Work Phone: [facility] Pre-Admit Testing Comment on above: Bacteria in urine Start: 12-13-2019 End: 12-15-2019 Emergency department patient visit Daniel Rolando Work Phone: [facility] CDU Comment on above: Chest pain, unspecif ied type (Primary Dx); Fatigue, unspecified type; Chronic kidney disease, unspecified CKD stage Start: 11-15-2019 End: 11-15-2019 Subsequent hospital visit by physician Fang Smallwood Work Phone: [facility] Laboratory Start: 11-15-2019 End: 11-15-2019 Subsequent hospital visit by physician Fang Smallwood Work Phone: [facility] Comment on above: 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) Start: 11-08-2019 End: 11-08-2019 Subsequent hospital visit by physician Fang Smallwood Work Phone: [facility] Comment on above: Azch's granulomat osis with renal involvement (HCC) (Primary Dx) Start: 11-01-2019 End: 11-01-2019 Subsequent hospital visit by physician Fang Smallwood Work Phone: [facility] Comment on above: 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) Start: 10-20-2019 End: 10-25-2019 Evaluation and management of inpatient Sebasrit Marquita Ramos Work Phone: [facility] Oncology Comment on above: Zach's-associated glomerulonephritis (HCC) (Primary Dx) Start: 05-24-2019 End: 05-24-2019 Subsequent hospital visit by physician Fang Smallwood Work Phone: [facility] [address] [facility] Comment on above: Arrived Start: 04-02-2019 End: 04-02-2019 Subsequent hospital visit by physician Fang Smallwood Work Phone: [facility] POP Comment on above: Other iron deficienc y anemia Start: 08-12-2018 End: 08-12-2018 Office outpatient visit 25 minutes [facility]by [facility] Start: 08-04-2018 Patient encounter procedure [employer] [employer] [facility] Start: 07-29-2018 End: 07-29-2018 Office outpatient new 60 minutes Abby [facility] Start: 12-30-2017 Patient encounter Danielle Graf [facility] Procedures Date Procedure Procedure Detail Performing Clinician Start: 02-23-[address] Matilde Noguera MD Work Phone: Start: 02-01-2025 Ct abdomen & pelvis w/contrast material Dr. Matilde Noguera MD Work Phone: Start: 01-13-2025 Adult depression screening assessment Kyler Garcia MD Work Phone: Start: 01-05-[address] Matilde Noguera MD Work Phone: Start: 01-05-2025 Urnls dip stick/tablet reagent auto microscopy Dr. Matilde Noguera MD Work Phone: Start: 12-08-2024 Urnls dip stick/tablet reagent auto microscopy Dr. Matilde Noguera MD Work Phone: Start: 12-08-2024 Plain chest X-ray Dr. Matilde Noguera MD Work Phone: Start: 12-08-2024 CT of head without contrast Dr. Matilde villa MD Work Phone: Start: 12-08-[address] Matilde Noguera MD Work Phone: Start: 12-08-2024 Serum inorganic phosphate measurement Dr. Matilde Noguera MD Work Phone: Start: 11-30-2024 Glucose quantitative blood xcpt reagent [...] Phone: Start: 11-25-2024 TTE w or wo Terrie ramos MD Work Phone: Start: 11-25-2024 End: 11-25-2024 [...] Phone: Start: 12-01-2022 STREP A MOLECULAR (POC) Angela Vasques APRN.BLOOD OR BLOOD BANK TECHNICIAN Work Phone: Start: 11-28-[address] Matilde Noguera Work Phone: Start: 06-25-[address] Matilde Noguera Work Phone: Start: 01-18-2022 Plain chest X-ray Start: 01-19-2021 VL VESSEL MAP FOR PREOP DIALYSIS ACCESS BILATERAL UPPER EXTREMITIES Fang Smallwood Work Phone: Start: 04-25-2020 Radiologic exam chest single view Yoseph Randolph Work Phone: Start: 04-25-2020 Assay of lactate Yoseph Randolph Work Phone: Start: 04-25-2020 Assay of troponin quantitative Yoseph Randolph Work Phone: Start: 04-25-2020 Basic metabolic panel calcium total Yoseph Randolph Work Phone: Start: 04-25-2020 Blood count complete auto&auto difrntl wbc Yoseph Randolph Work Phone: Start: 04-25-2020 Urnls dip stick/tablet rgnt auto w/o microscopy Yoseph Randolph Work Phone: Start: 04-25-2020 Ecg routine ecg w/least 12 lds w/i&r Yoseph Randolph Work Phone: Start: 04-06-2020 OPERATIVE REPORT 3m Scanning Start: 04-06-2020 Gluc bld gluc mntr dev cleared fda spec home use Bravo Zarco Work Phone: Start: 04-06-2020 Basic metabolic panel calcium total Ana Peterson Work Phone: Start: 03-14-2020 Blood count hemoglobin Ana Peterson Work Phone: Start: 03-14-2020 Comprehensive metabolic panel Ana Martínez S anyi Work Phone: Start: 03-14-2020 Ecg routine ecg w/least 12 lds w/i&r Ana Peterson Work Phone: Start: 12-15-2019 Gluc bld gluc mntr dev cleared fda spec home use Daniel Marshall Work Phone: Start: 12-15-2019 Basic metabolic panel calcium total Gemma L. Franko Work Phone: Start: 12-15-2019 Gluc bld gluc mntr dev cleared fda spec home use Daniel Marshall Work Phone: Start: 12-15-2019 Blood count complete automated Gemma L. Franko Work Phone: Start: 12-15-2019 Basic metabolic panel calcium total Gemma L. Franko Work Phone: Start: 12-15-2019 Gluc bld gluc mntr dev cleared fda spec home use Daniel Marshall Work Phone: Start: 12-14-2019 Gluc bld gluc mntr dev cleared fda spec home use Daneil Marshall Work Phone: Start: 12-14-2019 Gluc bld gluc mntr dev cleared fda spec home use Daniel Marshall Work Phone: Start: 12-14-2019 ECHOCARDIOGRAM PHARMACOLOGICAL STRESS TEST Angelia Hinson Work Phone: Start: 12-14-2019 End: 12-14-2019 Gluc bld gluc mntr dev cleared fda spec home use Daniel Marshall Work Phone: Start: 12-14-2019 ADD ON LAB TEST Angelia Hinson Work Phone: Start: 12-14-2019 Assay of troponin quantitative Angelia Hinson Work Phone: Start: 12-14-2019 Urnls dip stick/tablet rgnt auto w/o microscopy Angelia Hinson Work Phone: Start: 12-13-2019 ADD ON LAB TEST Angelia Hinson Work Phone: Start: 12-13-2019 Gluc bld gluc mntr [...] Blood count complete auto&auto difrntl wbc Fang Smallwood Work Phone: Start: 11-15-2019 C-reactive protein high sensitivity Fang Smallwood Work Phone: Start: 11-15-2019 Complement antigen each component Fang Smallwood Work Phone: Start: 11-15-2019 Creatinine other source Fang bailey Work Phone: Start: 11-15-2019 Protein total xcpt refractometry urine Fang Smallwood Work Phone: Start: 11-15-2019 Renal function panel Fang Smallwood Work Phone: Start: 11-15-2019 Sedimentation rate rbc automated Fang Smallwood Work Phone: Start: 11-15-2019 Urnls dip stick/tablet rgnt auto w/o microscopy Fang Smallwood Work Phone: Start: 10-25-2019 Gluc bld gluc mntr dev cleared fda spec home use Nimrit [employer] Work Phone: Start: 10-25-2019 Acute hepatitis panel Fang Smallwood Work Phone: Start: 10-25-2019 Blood count complete automated Cely Birmingham Work Phone: Start: 10-25-2019 Renal function panel Cely Birmingham Work Phone: Start: 10-24-2019 Gluc bld gluc mntr dev cleared fda spec home use [employer]rit [employer] Work Phone: Start: 10-24-2019 Gluc bld gluc mntr dev cleared fda spec home use [employer]rit [employer] Work Phone: Start: 10-24-2019 Gluc bld gluc mntr dev cleared fda spec home use Nimrit K [employer] Work Phone: Start: 10-24-2019 Blood count complete automated Cely Birmingham Work Phone: Start: 10-24-2019 Renal function panel Cely Birmingham Work Phone: Start: 10-24-2019 Gluc bld gluc mntr dev cleared fda spec home use [employer]rit [employer] Work Phone: Start: 10-23-2019 Gluc bld gluc mntr dev cleared fda spec home use Nimrit [employer] Work Phone: Start: 10-23-2019 Gluc bld gluc mntr dev cleared fda spec home use [employer]rit [employer] Work Phone: Start: 10-23-2019 Gluc bld gluc mntr dev cleared fda spec home use [employer] Work Phone: Start: 10-23-2019 Gluc bld gluc mntr dev cleared fda spec home use [employer] Work Phone: Start: 10-23-2019 Blood count complete automated Cely Birmingham Work Phone: Start: 10-23-2019 Hepatitis b surf antibody hbsab Fang Gossomali Work Phone: Start: 10-23-2019 Hepatitis c antibody Fang Seymour Gayomali Work Phone: Start: 10-23-2019 Iaad ia hepatitis b surface antigen Fang Gossomali Work Phone: Start: 10-23-2019 Renal function panel Cely Birmingham Work Phone: Start: 10-23-2019 Creatinine other source Fang Anne li Work Phone: Start: 10-23-2019 Protein total xcpt refractometry urine Fang Doughertyi Work Phone: Start: 10-22-2019 Gluc bld gluc mntr dev cleared fda spec home use Nimrit [employer] Work Phone: Start: 10-22-2019 Gluc bld gluc mntr dev cleared fda spec home use Sebasrit Marquita Ramos Work Phone: Start: 10-22-2019 Gluc bld gluc mntr dev cleared fda spec home use Nimrit Marquita Ramos Work Phone: Start: 10-22-2019 Gluc bld gluc mntr dev cleared fda spec home use Sebas[employer] Marquita Ramos Work Phone: Start: 10-22-2019 Assay of ferritin Sebasrit Marquita Ramos Work Phone: Start: 10-22-2019 Blood count complete automated Cely Birmingham Work Phone: Start: 10-22-2019 Iron binding capacity Sebasrit Marquita Ramos Work Phone: Start: 10-22-2019 Renal function panel Cely Birmingham Work Phone: Start: 10-21-2019 Radiologic exam chest single view Camila Styles Work Phone: Start: 10-21-2019 Renal biopsy prq trocar/needle Fang Smallwood Work Phone: Start: 10-21-2019 Us retroperitoneal real time w/image complete Fagn Doughertyi Work Phone: Start: 10-21-2019 End: 10-21-2019 ADD ON LAB TEST Marya Ramos Work Phone: Start: 10-21-2019 Blood count complete automated Cely Birmingham Work Phone: Start: 10-21-2019 PROTIME/INR & PTT Cely Birmingham Work Phone: Start: 10-21-2019 RENAL + LIVER PROF Cely Birmingham Work Phone: Start: 05-24-2019 Us retroperitoneal real time w/image complete Fang Gossomali Work Phone: Start: 07-29-2018 End: 07-30-2018 Chest PA and Lateral Comments: See Note; NOTES: [facility] Imaging Services [address] [place] [address] Chest PA and Lateral MR#: [id number] Acct: [id number] Name: FRANKLIN BURTON Rep #: [id number] : 1945 M 72 From: Saturnino Sky MD PCP: Care Physician, No Primary Status: REG CLI Study: Chest PA and Lateral Date of Exam: 07/29/18 Exam# [id number] Ordering Dr: Abby Arango DO STUDY: X-RAY [...] No Primary Care Physician; Abby Arango DO Supervisor [employer] Room: Signed Abby Arango Work Phone: Knee sx [...] cancer screen colonoscopy Colon cancer screen colonoscopy [place], [place] Start: 08-23-2027 Screening for malignant neoplasm of colon Colon cancer screen colonoscopy [place], [place] Start: 01-13-2026 Annual PCP Team Chronic Disease Visit Annual PCP Team Chronic Disease Visit [facility] Start: 01-13-2026 Anxiety Screening Anxiety Screening [facility] Start: 01-13-2026 Depression Screening Depression Screening [facility] Start: 01-13-2026 Hepatitis B surface antibody level LDL Cholesterol [facility] Start: 11-30-2025 Complete blood count Hemoglobin/Hematocrit [facility] Start: 11-30-2025 Creatinine measurement [facility] Start: 11-30-2025 Potassium measurement Potassium Level [facility] Start: 11-25-2025 Echocardiography Echocardiogram [facility] Start: 10-08-2025 DTaP/Tdap/Td vaccine (2 - Td or Tdap) DTaP/Tdap/Td vaccine (2 - Td or Tdap) [facility] Work Phone: Start: 10-08-2025 DTaP/Tdap/Td vaccine (2 - Td) DTaP/Tdap/Td vaccine (2 - Td) [place] Start: 10-08-2025 DTaP/Tdap/Td Vaccines (2 - Td or Tdap) DTaP/Tdap/Td Vaccines (2 - Td or Tdap) [facility] Start: 10-08-2025 Urine microalbumin profile DTaP,Tdap,Td Vaccine (2 - Td or Tdap) [facility] Start: 07-16-2025 Hemoglobin A1c measurement HbA1C [facility] Start: 03-14-2025 Non-patient / Non-visit Non-patient / Non-visit -[facility] Start: 03-14-2025 Patient encounter procedure Registered Clinical -Cardiovascular Services Work Phone: Start: 02-23-2025 Anesthesia male genitalia incl open urethral px ANESTH GENITALIA SURGERY [facility] Start: 02-23-2025 Circumcision CIRCUM 28 DAYS OR OLDER [facility] Start: 02-23-2025 Ambulation without limitation [facility] Start: 02-23-2025 Medical regimen orders management [facility] Start: 02-23-2025 Medication education [facility] Start: 02-23-2025 Patient discharge [facility] Start: 02-23-2025 Taking patient vital signs [facility] Start: 02-23-2025 [facility] Start: 02-17-2025 End: 02-17-2025 Patient encounter procedure 02/17/2025 11:20 AM EDT Office Visit [facility] [place] [address] [place] [address] Kyler Garcia MD [address] [place] [address] 1 month follow up [facility] Comment on above: 1 month follow up Start: 02-03-2025 End: 02-03-2025 Patient encounter procedure 02/03/2025 9:00 AM EDT Office Visit Rheumatology [address] [address] Nathanael Black MD [address] [place] [address] WG (Wegeners Granulomatosis) Rheumatology Comment on above: WG (Wegeners Granulomatosis) Start: 01-17-2025 Influenza vaccination Influenza Vaccine (#1) [facility] Start: 01-05-2025 End: 01-05-2025 [facility] Start: 12-08-2024 End: 12-08-2024 [facility] Start: 11-13-2024 DIABETES SCREEN DIABETES SCREEN [facility] Start: 05-19-2024 Advance Directive Discussion Advance Directive Discussion [facility] Start: 04-19-2024 [facility] Start: 04-19-2024 [facility] Start: 01-18-2024 COVID-19 Vaccine ( season) COVID-19 Vaccine ( season) [facility] Start: 01-01-2024 Creatinine measurement Creatinine Level [facility] Start: 01-01-2024 Potassium measurement Potassium Level [facility] Start: 12-31-2023 Hepatitis B Vaccine (8 of 8 - Risk Dialysis 4-dose series) Hepatitis B Vaccine (8 of 8 - Risk Dialysis 4-dose series) [facility] Start: 12-31-2023 Hepatitis B Vaccines (8 of 8 - Risk Dialysis Recombivax 3-dose series) Hepatitis B Vaccines (8 of 8 - Risk Dialysis Recombivax 3-dose series) [facility] Start: 12-24-2023 Lipid panel Lipid screen [facility] Work Phone: Start: 09-09-2023 Procedure [facility] Start: 08-04-2023 End: 08-03-2024 XR Hip - right Views XR hip 4+ views right Imaging Routine 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, initial encounter (HCC) (HCC) Expected: 08/04/2023, Expires: 08/03/2024 [facility] Work Phone: Comment on above: Expected: 08/04/2023, Expires: Start: 03-17-2023 [facility] Start: 03-12-2023 Patient referral [facility] Work Phone: Start: 03-04-2023 [facility] Start: 03-03-2023 [facility] Start: 03-02-2023 [facility] Start: 03-01-2023 [facility] Start: 02-28-2023 Referral to occupational therapist [facility] Start: 02-28-2023 End: 02-28-2023 [facility] Start: 02-28-2023 Hemodialysis care [facility] Start: 02-28-2023 Referral to service [facility] Start: 02-28-2023 Patient discharge [facility] Start: 02-27-2023 Application of intermittent pneumatic compression device [facility] Start: 02-27-2023 Anaerobic Culture Anaerobic Culture [facility] Start: 02-27-2023 Bacteria identified in Blood by Culture Blood Culture [facility] Start: 02-27-2023 Bacteria identified in Urine by Culture Urine Culture [facility] Start: 02-27-2023 Bacterial culture Body Fluid Culture [facility] Start: 02-27-2023 Urine culture Urine Culture [facility] Start: 02-27-2023 [facility] Start: 02-27-2023 Assessment of risk of venous thromboembolism [facility] Start: 02-27-2023 Incentive spirometry [facility] Start: 02-27-2023 Insertion of catheter into peripheral vein [facility] Start: 02-27-2023 Measuring intake and output [facility] Start: 02-27-2023 Providing care according to standard [facility] Start: 02-27-2023 Provision of activity privileges [facility] Start: 02-27-2023 Referral to check out cashier [facility] Start: 02-27-2023 Referral to service [facility] Start: 02-27-2023 [facility] Start: 02-27-2023 Following clinical pathway protocol [facility] Start: 02-27-2023 Admission procedure [facility] Start: 02-27-2023 Hospital admission, emergency, from emergency room, medical nature [facility] Start: 02-27-2023 Cell count and Differential panel - Body fluid [facility] Start: 02-27-2023 Microbial culture, body fluid [facility] Start: 02-27-2023 End: 02-27-2023 Blood culture [facility] Start: 02-27-2023 End: 02-27-2023 [facility] Start: 02-25-2023 End: 02-25-2023 [facility] Start: 02-25-2023 Emergency department visit moderate severity EMERGENCY DEPT VISIT LOW MDM [facility] Start: 01-17-2023 COVID-19 Vaccine ( season) COVID-19 Vaccine ( season) [facility] Start: 01-17-2023 Influenza vaccination [facility] Start: 01-14-2023 Patient referral [facility] Work Phone: Start: 01-08-2023 End: 01-08-2023 Patient encounter procedure 01/08/2023 11:30 AM EDT Office Visit [facility] [address] [facility] [address] [place] [phone] [facility] Start: 12-31-2022 End: 12-31-2022 Admission to same day surgery center 12/31/2022 2:30 PM EDT - 12/31/2022 4:00 PM EDT Surgery [facility] MAIN OR [address] [place] [address] Elroy Thomas MD [address] [facility] [address] [place] [address] LAPAROSCOPIC CONTINUOUS AMBULATORY PERITONEAL DIALYSIS CATHETER PLACEMENT WITH OMENTOPEXY, POSSIBLE OPEN [75504 (CPT )] [facility] Comment on above: LAPAROSCOPIC CONTINUOUS AMBULATORY PERIT KHANNA DIALYSIS CATHETER PLACEMENT WITH OMENTOPEXY, POSSIBLE OPEN [81676 (CPT )] Start: 12-31-2022 End: 12-31-2022 Laparoscopy w/omentopexy LAPAROSCOPY WITH OMENTOPEXY (OMENTAL TACKING PROCEDURE) End stage renal disease (HCC) 12/31/2022 2:30 PM EDT [facility] Operating Room Start: 12-31-2022 End: 12-31-2022 Laps insertion tunneled intraperitoneal catheter LAPAROSCOPY WITH INSERTION OF INTRAPERITONEAL CANNULA OR CATHETER PERMANENT End stage renal disease (HCC) 12/31/2022 2:30 PM EDT [facility] Operating Room Start: 12-31-2022 Subsequent hospital visit by physician 12/31/2022 2:30 PM EDT Hospital Encounter [facility] OR [address] [place] [address] Elroy Thomas MD [address] [facility] [address] [place] [id number] [facility] Start: 12-24-2022 End: 12-24-2022 Admission to establishment 12/24/2022 1:30 PM EDT Pre-Admission Testing [facility] Pre-Admit Testing [address] [place] [phone] [facility] Start: 12-16-2022 End: 12-16-2022 Patient encounter procedure 12/16/2022 1:45 PM EDT Office Visit [facility] [address] [place] [phone] Elroy Thomas MD [address] [facility] [address] [place] [address] [facility] Start: 11-28-2022 Patient referral [facility] Work Phone: Start: 06-25-2022 Colonoscopy w/biopsy single/multiple COLONOSCOPY AND BIOPSY [facility] Start: 06-25-2022 Colsc flx w/rmvl of tumor polyp lesion snare tq COLONOSCOPY W/LESION REMOVAL [facility] Start: 06-25-2022 Patient discharge [facility] Start: 06-03-2022 Patient referral [facility] Work Phone: Start: 05-19-2022 ADVANCE DIRECTIVE DISCUSSION ADVANCE DIRECTIVE DISCUSSION [facility] Start: 05-19-2022 DEPRESSION ASSESSMENT DEPRESSION ASSESSMENT [facility] Start: 05-09-2022 Medicare Annual Wellness (AWV) Medicare Annual Wellness (AWV) [facility] Start: 04-09-2022 Creatinine measurement Creatinine Level [facility] Start: 04-09-2022 Potassium measurement Potassium Level [facility] Start: 01-19-2022 Patient discharge [facility] Work Phone: Start: 01-19-2022 Vitamin B12 measurement [facility] Work Phone: Start: 01-19-2022 Following clinical pathway protocol [facility] Work Phone: Start: 01-19-2022 Patient referral to dietitian [facility] Work Phone: Start: 01-18-2022 Assessment of risk of venous thromboembolism [facility] Work Phone: Start: 01-18-2022 Insertion of catheter into peripheral vein [facility] Work Phone: Start: 01-18-2022 Oxygen therapy [facility] Work Phone: Start: 01-18-2022 Providing care according to standard [facility] Work Phone: Start: 01-18-2022 Provision of activity privileges [facility] Work Phone: Start: 01-18-2022 Referral to occupational therapist [facility] Work Phone: Start: 01-18-2022 Referral to service [facility] Work Phone: Start: 01-18-2022 [facility] Work Phone: Start: 01-18-2022 Verification routine [facility] Work Phone: Start: 01-18-2022 Admission procedure [facility] Work Phone: Start: 01-18-2022 End: 01-18-2022 Blood culture [facility] Work Phone: Start: 01-18-2022 [facility] Work Phone: Start: 01-18-2022 [facility] Work Phone: Start: 2021 RSV Immunization for Adults (1 - 1-dose 75+ series) RSV Immunization for Adults (1 - 1-dose 75+ series) [facility] Start: 2021 RSV Vaccine (1 - 1-dose 75+ series) RSV Vaccine (1 - 1-dose 75+ series) [facility] Start: 06-19-2021 COVID-19 Vaccine (4 - Booster for Moderna series) COVID-19 Vaccine (4 - Booster for Moderna series) [facility] Start: 06-19-2021 COVID-19 VACCINE (4 - Moderna series) COVID-19 VACCINE (4 - Moderna series) [facility] Start: 05-16-2021 End: 05-16-2021 Patient encounter procedure 05/16/2021 Office Visit Urology Bravo Zarco MD [address] [place] [phone] [facility] [place] Start: 04-25-2021 Creatinine measurement Creatinine monitoring [facility] Work Phone: Start: 04-25-2021 Potassium monitoring Potassium monitoring [facility] Work Phone: Start: 04-09-2021 End: 04-09-2021 Patient encounter procedure 04/09/2021 Office Visit Internal Medicine Rahel Mendez MD [address] [place], [place] [id number] [facility] Internal Medicine Start: 04-06-2021 Creatinine measurement Creatinine monitoring [facility] [place] [place] Start: 04-06-2021 Potassium monitoring Potassium monitoring [facility] [place], [place] Start: 01-17-2021 Influenza vaccination Flu vaccine (#1) [facility] Work Phone: Start: 12-14-2020 Creatinine measurement Creatinine monitoring [facility] [place] [place] Start: 12-14-2020 Potassium monitoring Potassium monitoring [facility] [place], [place] Start: 11-29-2020 End: 11-29-2020 Office Visit 11/29/2020 Office Visit Urology Bravo Zarco MD [address] [place] [phone] [facility] [place] Start: 11-14-2020 Creatinine measurement Creatinine monitoring [facility] [place] Start: 11-14-2020 Potassium monitoring Potassium monitoring [facility] [place] Start: 10-24-2020 Creatinine measurement Creatinine monitoring [facility] [place] [place] Start: 10-24-2020 Potassium monitoring Potassium monitoring [facility] [place], [place] Start: 10-23-2020 Creatinine measurement Creatinine monitoring [facility] [place] Start: 10-23-2020 Potassium monitoring Potassium monitoring [facility] [place], [place] Start: 06-05-2020 End: 06-05-2020 Office Visit 06/05/2020 Office Visit Internal Medicine Rahel Mendez MD [address] [place] [address] [phone] [facility] Internal Medicine Start: 05-10-2020 End: 05-10-2020 Office Visit 05/10/2020 Office Visit Urology Bravo Zarco MD [address] [place] [phone] [facility] [place] Start: 04-19-2020 Creatinine [address] Creatinine monitoring [facility] Work Phone: Start: 04-19-2020 Potassium monitoring Potassium monitoring [facility] Work Phone: Start: 04-19-2020 End: 04-19-2020 Office Visit 04/19/2020 Office Visit Endocrinology Danielle Aguirre MD [address] [place], [place] [phone] [facility] [place] Start: 03-21-2020 End: 03-21-2020 Appointment 03/21/2020 Appointment General Surgery Bravo Zarco MD [address] [place] [phone] [facility] General Surgery Start: 01-27-2020 End: 01-27-2020 Office Visit 01/27/2020 Office Visit Internal Medicine Rahel Mendez MD [address] [place] [address] [phone] [facility] Internal Medicine Start: 01-18-2020 Influenza vaccination Flu vaccine (#1) [place], [place] Start: 12-24-2019 Lipid panel Lipid [place] Start: 12-24-2019 Lipid screen Lipid [place] Start: 12-15-2019 Annual Wellness Visit (AWV) Annual Wellness Visit (AWV) [place] Start: 11-24-2019 End: 11-24-2019 Office Visit 11/24/2019 Office Visit Urology Bravo Zarco MD [address] [place] [phone] [facility] [place] Start: 11-15-2019 End: 11-15-2019 Appointment 11/15/2019 Appointment Infusion Therapy [facility] Start: 11-08-2019 End: 11-08-2019 Appointment 11/08/2019 Appointment Infusion Therapy [facility] Start: 09-08-2019 End: 09-08-2019 Office Visit 09/08/2019 Office Visit Urology Bravo Zarco MD [address] [place] [phone] [facility] [place] Start: 07-09-2019 Creatinine monitoring Creatinine monitoring [facility] [place] Start: 07-09-2019 Potassium monitoring Potassium monitoring [facility] [place] Start: 07-09-2019 End: 07-09-2019 Office Visit 07/09/2019 Office Visit Internal Medicine Rahel Mendez MD [address] [place] [address] [phone] [facility] Internal Medicine Start: 06-25-2019 A1C test (Diabetic or Prediabetic) A1C test (Diabetic or Prediabetic) [place] Start: 06-25-2019 HbA1c (Bld) [Mass fraction] A1C test (Diabetic or Prediabetic) [place] Start: 06-25-2019 Hemoglobin A1c measurement A1C test (Diabetic or Prediabetic) [facility] Work Phone: Start: 04-19-2019 End: 04-19-2019 Office Visit 04/19/2019 Office Visit Endocrinology Danielle Aguirre MD [address] [place] [address] [phone] [facility] [place] Start: 01-17-2019 Influenza vaccination Flu vaccine (#1) [place], [place] Start: 11-04-2018 Annual Wellness Visit (AWV) Annual Wellness Visit (AWV) [place] Start: 07-29-2018 Assay of folic acid serum Folate (29077) [facility] Work Phone: Start: 07-29-2018 Blood count complete automated CBC (AUTO) (58138) [facility] Work Phone: Start: 07-29-2018 Cobalamin (Vitamin B12) mass conc VITAMIN B-12 (CYANOCOBALAMIN) (82033) [facility] Work Phone: Start: 07-29-2018 Nuclear Ab IF titer (S) MADAN (ANTINUCLEAR ANTIBODY) (14770) [facility] Work Phone: Start: 07-29-2018 Rheumatoid factor quantitative RHEUMATOID FACTOR-QUANT (42225) [facility] Work Phone: Start: 07-29-2018 Thyrotropin Qn TSH (42067) [facility] Work Phone: Start: 07-29-2018 Sedimentation rate rbc non-automated SED RATE ERYTHROCYTE (01288) [facility] Work Phone: Start: 07-29-2018 CRP mass conc C-REACTIVE PROTEIN (19392) [facility] Work Phone: Start: 07-29-2018 Blood occult peroxidase actv qual feces 1 deter OCCULT BLOOD FECES SCREEN (63788) [facility] Work Phone: Start: 07-29-2018 Leukocyte assmt fecal qual/semiquantitative LEUKOCYTE COUNT, FECAL (97538) [facility] Work Phone: Start: 07-29-2018 Culture bacterial any source anaerobic iso&id C-DIFFICILE, STOOL (88949) [facility] Work Phone: Start: 07-29-2018 Cul bact stool aerobic isol salmonella&shigell LUZ CULTURE-STOOL (87260) [facility] Work Phone: Start: 07-29-2018 Hemoglobin A1c/Hemoglobin.total mass fraction (Bld) HGB A1C (66658) [facility] Work Phone: Start: 07-29-2018 25 hydroxy includes fractions if performed [facility] Work Phone: Start: 07-29-2018 Urine albumin quantitative MICROALBUMIN: CREATININE RATIO (02978) AND (54801) [facility] Work Phone: Start: 07-29-2018 Comprehensive metabolic panel METABOLIC PANEL, COMPREHENSIVE (17505) [facility] Work Phone: Start: 07-29-2018 Protein mass conc NMR Profile (74171) [facility] Work Phone: Start: 07-29-2018 Blood count complete auto&auto difrntl wbc [facility] Work Phone: Start: 12-25-2016 Screening for osteoporosis Bone Density Scan [facility] Start: 09-06-2011 PNEUMOCOCCAL: 65+ (1 - PCV) PNEUMOCOCCAL: 65+ (1 - PCV) [facility] Start: 08-18-2011 Medicare Annual Wellness Visit Medicare Annual Wellness Visit [facility] Start: 2006 RSV Immunization aged 60 or older (1 - 1-dose 60+ series) RSV Immunization aged 60 or older (1 - 1-dose 60+ series) [facility] Start: 1996 Shingles Vaccine (1 of 2) Shingles Vaccine (1 of 2) [place] Start: 1996 SHINGRIX VACCINE (1 of 2) SHINGRIX VACCINE (1 of 2) [facility] Start: 1965 Hepatitis B vaccine (1 of 3 - Risk 3-dose series) Hepatitis B vaccine (1 of 3 - Risk 3-dose series) [place] Start: 1965 Shingrix Vaccine (1 of 2) Shingrix Vaccine (1 of 2) [facility] Start: 1965 Urine microalbumin profile DTAP,TDAP,TD (1 - Tdap) [facility] Start: 1965 Zoster Vaccines (1 of 2) Zoster Vaccines (1 of 2) [facility] Start: 1964 Diabetes mellitus screening Diabetes Screening [facility] Start: 1964 HEPATITIS C SCREENING HEPATITIS C SCREENING [facility] Start: 1958 COVID-19 Vaccine (1) COVID-19 Vaccine (1) [facility] Work Phone: Start: 1958 Depression Screening Depression Screening [facility] Start: 1956 [object Object] Diabetic foot exam [place], [place] Start: 1956 Diabetic foot examination Diabetic foot exam [facility] Start: 1956 Diabetic retinal exam Diabetic retinal exam [place], [place] Start: 1956 Glaucoma screening Dilated Retinal Exam [facility] Start: 03-07-1947 COVID-19 Vaccine (#1) COVID-19 Vaccine (#1) [facility] Start: 1946 AAA screen AAA screen [place], [place] Start: 1946 Abdominal aortic aneurysm screening AAA screen [place] Start: 1946 Echocardiography Echocardiogram [facility] Start: 1946 Hepatitis C screen Hepatitis C screen [place], [place] Start: 1946 Lipid panel Lipid Panel [facility] Start: 1946 Medicare Annual Wellness (AWV) Medicare Annual Wellness (AWV) [facility] Start: 1946 Screening for osteoporosis Bone Density Scan [facility] End: 10-23-2019 Anti-DNA Antibody, Double-Stranded Anti-DNA Antibody, Double-Stranded Lab Routine Tomorrow AM for 1 Occurrences starting 10/23/2019 until 10/23/2019 [facility]: Tomorrow AM for 1 Occurrences starting 0 10/23/2019 until 10/23/2019 Anti-DNA Antibody, Double-Stranded Anti-DNA Antibody, Double-Stranded Lab Routine 10/23/2019 5:24 AM EDT [facility] End: 03-14-2020 Bacteria identified Cx Nom (U) Urine Culture Microbiology Routine Bacteria in urine 1 Occurrences starting 03/14/2020 until 03/14/2020 [facility] Comment on above: 1 Occurrences starting 03/14/2020 until 03/14/2020 Bacteria identified in Blood by Culture Blood Culture [facility] Work Phone: Bacteria identified in Unspecified specimen by Anaerobe culture [facility] Bacteria identified in Urine by Culture Urine Culture [facility] Work Phone: Basic metabolic 2000 panel Basic Metabolic Panel Lab Routine Daily until discontinued starting 10/22/2019 [facility] Comment on above: Daily until discontinued starting 2019 Blood culture [facility] Work Phone: CBC CBC Lab Routine Daily until discontinued starting 10/22/2019, 4 completed [facility] [place] Comment on above: Daily until discontinued starting 2019, 4 completed End: 12-14-2019 CBC Auto Differential CBC Auto Differential Lab Routine One Time for 1 Occurrences starting 12/14/2019 until 12/14/2019 [facility] Comment on above: One Time for 1 Occurrences starting 11/17 until 12/14/2019 CBC Auto Differential CBC Auto D ifferential Lab Routine 12/14/2019 9:01 PM EDT [facility] Culture, Urine [facility] [place] End: 01-13-2026 Echocardiography ECHO Cardiology Routine Heart failure with preserved ejection fraction, unspecified HF chronicity (HCC) Encounter for screening for cardiovascular disorders 1 Occurrences starting 01/13/2025 until 01/13/2026 [facility] Comment on above: 1 Occurrences starting 01/13/2025 until 01/13/2026 EKG 12 lead [facility] Comment on above: As Needed until discontinued starting Electrophoresis Prot ein, Serum without Reflex to Immunofixation Electrophoresis Protein, Serum without Reflex to Immunofixation Lab Routine 10/23/2019 5:24 AM EDT [facility] End: 10-23-2019 Glomerular Basement Membrane (GBM) Antibody IgG Glomerular Basement Membrane (GBM) Antibody IgG Lab Routine Tomorrow AM for 1 Occurrences starting 10/23/2019 until 10/23/2019 [facility] Comment on above: Tomorrow AM for 1 Occurrences starting 0 10/23/2019 until 10/23/2019 Glomerular Basement Membrane (GBM) Antibody IgG Glomerular Basement Membrane (GBM) Antibody IgG Lab Routine 10/23/2019 5:24 AM EDT [facility] End: 01-14-2026 HEARING TEST/AUDIOGRAM HEARING TEST/AUDIOGRAM Audiology Routine Bilateral hearing loss, unspecified hearing loss type 1 Occurrences starting 01/13/2025 until 01/14/2026 [facility] Comment on above: 1 Occurrences starting 01/13/2025 until 01/14/2026 HHN Treatment HHN Treatment Respiratory Care Routine Every 4hr As Needed until discontinued starting 10/20/2019 [facility] above: Every 4hr As Needed until discontinued s tarting 10/20/2019 Initiate Oxygen Ther apy Protocol [facility] Comment on above: Daily until discontinued starting 2019 Daily until disconti nued starting 10/21/2019 As Needed until disc ontinued starting 10/25/2019 Lipid 1996 panel - S gagandeep or Plasma [facility] End: 10-23-2019 MYELOPEROXIDASE AB MYELOPEROXIDASE AB Lab Routine Tomorrow AM for 1 Occurrences starting 10/23/2019 until 10/23/2019 [facility] Comment on above: Tomorrow AM for 1 Occurrences starting 0 10/23/2019 until 10/23/2019 MYELOPEROXIDASE AB MYELOPEROXIDA SE AB Lab Routine 10/23/2019 5:24 AM EDT [facility] End: 12-14-2019 Nasal Cannula Oxygen Nasal Cannula Oxygen Respiratory Care Routine As Needed until discontinued starting 12/14/2019 [facility] Comment on above: As Needed until discontinued starting End: 10-23-2019 Nuclear Ab IF (S) [Titer] MADAN Lab Routine Tomorrow AM for 1 Occurrences starting 10/23/2019 until 10/23/2019 [facility] Comment on above: Tomorrow AM for 1 Occurrences starting 0 10/23/2019 until 10/23/2019 Nuclear Ab IF (S) [Titer] MADAN La b Routine 10/23/2019 5:24 AM EDT [facility] O[facility] therapy Initiate Oxygen Therapy Protocol Respiratory Care Routine Daily until discontinued starting 12/13/2019 [facility] Comment on above: Daily until discontinued starting 2019 Oxygen therapy [[facility]] Initiate Oxygen Therapy Protocol Respiratory Care Routine Daily until discontinued starting 04/06/2020 [facility] Comment on above: Daily until discontinued starting 2019 Patient Education [facility] Work Phone: Patient referral [facility] Work Phone: POCT glucose [facility] [place] Comment on above: 4X Daily (AC & HS) until discontinued st arting 10/22/2019 As Needed until disc ontinued starting 10/22/2019 As Needed until disc ontinued starting 12/14/2019 End: 01-13-2026 Polysomnogram POLYSOMNOGRAM (PSG) Procedures Routine ROYAL (obstructive sleep apnea) 1 Occurrences starting 01/13/2025 until 01/13/2026 [facility] Work Phone: Comment on above: 1 Occurrences starting 01/13/2025 until 01/13/2026 End: 10-23-2019 Proteinase 3 Ab Proteinase 3 Ab Lab Routine Tomorrow AM for 1 Occurrences starting 10/23/2019 until 10/23/2019 [facility] Comment on above: Tomorrow AM for 1 Occurrences starting 0 10/23/2019 until 10/23/2019 Proteinase 3 Ab [facility] [place] End: 11-15-2019 Proteinase 3 Ab Proteinase 3 Ab Lab Routine Once for 1 Occurrences starting 11/15/2019 until 11/15/2019 [facility] Comment on above: Once for 1 Occurrences starting 11/15/19 20 until 11/15/2019 Renal Function Panel Renal Funct ion Panel Lab STAT Daily until discontinued starting 10/21/2019, 4 completed [place] Comment on above: Daily until discontinued starting 2019, 4 completed End: 04-25-2020 Respiratory Panel, Molecular, with COVID-19 (Restricted: peds pts or suitable admitted adults) [place] Comment on above: One Time for 1 Occurrences starting 12/2019 until 04/25/2020 Respiratory Panel, Molecular, with COVID-19 (Restricted: peds pts or suitable admitted adults) [place] End: 10-21-2019 Surgical Pathology Surgical Pathology Lab Routine Once for 1 Occurrences starting 10/21/2019 until 10/21/2019 [place] Comment on above: Once for 1 Occurrences starting 10/21/19 20 until 10/21/2019 Surgical Pathology Surgical Path ology Lab Routine 10/21/2019 11:00 AM EDT [place] Urine culture Urine Culture [facility] Work Phone: Urine culture [facility] End: 11-25-2024 Vitamin B1, whole blood [facility] Work Phone: Comment on above: Once (Lab) for 1 Occurrences starting until 11/25/2024 Vitamin B12 measurement [facility] Work Phone: VL Vessel Map for Pr eop Dialysis Access Bilateral Upper Extremities VL Vessel Map for Preop Dialysis Access Bilateral Upper Extremities Imaging Routine 01/19/2021 4:29 PM EDT [facility] Work Phone: End: 08-07-2023 XR Hip - right Views [facility] Comment on above: Once for 1 Occurrences starting 08/07/19 24 until 08/07/2023 [facility] Work Phone: [facility] Work Phone: [facility] Work Phone: [facility] Work Phone: [facility] Work Phone: BMI 36.0-36.9,ad ult : Eprescribed prescriptions (G8553) [facility] Work Phone: Immunizations Immunization Date Immunization Notes Care Provider Fa cili 02-18-2025 Pneumococcal 21 (PCV 21) Dr. Matilde Noguera MD Work Phone: [facility] 02-17-2025 influenza, high dose seasonal, preservative-free Dr. Matilde Noguera MD Work Phone: [facility] 02-25-2024 influenza virus vacc ine, unspecified formulation Kyler Garcia MD Work Phone: [facility] 12-30-2022 Hepatitis B vaccine (recombinant), CpG adjuvanted Sky Kerr MD Work Phone: [facility] 12-30-2022 hepatitis B vaccine, unspecified formulation Kyler Garcia MD Work Phone: [facility] 10-28-2022 Hepatitis B vaccine (recombinant), Shama Kerr MD Work Phone: [facility] 09-23-2022 Hepatitis B vaccine (recombinant), CpG adjuvanted Sky Kerr MD Work Phone: [facility] 08-26-2022 Hepatitis B vaccine (recombinant), CpG adjuvanted Sky Kerr MD Work Phone: [facility] 07-08-2022 Influenza, high dose seasonal Dr. Matilde Noguera MD Work Phone: [facility] 07-08-2022 influenza, high dose seasonal, preservative-free Dr. Matilde Noguera Work Phone: [facility] 07-08-2022 influenza, injectabl e, quadrivalent, preservative free Dr. Matilde Noguera Work Phone: [facility] 07-08-2022 influenza virus vacc ine, unspecified formulation Elroy Thomas MD Work Phone: [facility] 03-04-2022 Influenza, high dose seasonal Dr. Matilde Noguera MD Work Phone: [facility] 03-04-2022 influenza, high dose seasonal, preservative-free Dr. Matilde Noguera Work Phone: [facility] 03-04-2022 influenza, injectabl e, quadrivalent, preservative free Dr. Matilde Noguera Work Phone: [facility] 03-04-2022 Influenza, Seasonal, Quadrivalent, Adjuvanted Sky Kerr MD Work Phone: [facility] 11-22-2021 hepatitis B vaccine, adult dosage Dr. Matilde Noguera Work Phone: [facility] 07-25-2021 hepatitis B vaccine, adult dosage Dr. Matilde Noguera Work Phone: [facility] 06-11-2021 hepatitis B vaccine, adult dosage Dr. Matilde Noguera Work Phone: [facility] 04-24-2021 Covid (Moderna) Dr. Matilde villa Work Phone: [facility] 02-16-2021 influenza, injectabl e, quadrivalent, preservative free Dr. Matilde Noguera Work Phone: [facility] 02-16-2021 influenza, seasonal, injectable RAHEL MATA Work Phone: [facility] 07-20-2020 Covid (Moderna) RAHEL BARRAGAN Work Phone: [facility] 06-22-2020 Covid (Moderna) RAHEL BARRAGAN Work Phone: [facility] 04-17-2020 Influenza High-Dose Quadrivalent Dr. Matilde Noguera Work Phone: [facility] 04-17-2020 Influenza, high dose seasonal Dr. Matilde Noguera MD Work Phone: [facility] 04-17-2020 influenza, high dose seasonal, preservative-free Dr. Matilde Noguera Work Phone: [facility] 03-23-2019 Influenza, high dose seasonal Dr. Matilde Noguera MD Work Phone: [facility] 03-23-2019 influenza, high dose seasonal[facility] 03-23-2019 Seasonal trivalent influenza vaccine, adjuvanted, preservative free Sky Kerr MD Work Phone: [facility] 04-06-2018 Influenza, high dose seasonal Dr. Matilde Noguera MD Work Phone: [facility] 04-06-2018 influenza, high dose seasonal, preservative-free [facility] 11-17-2017 pneumococcal conjuga te vaccine, 13 valent [facility] 03-31-2017 influenza virus vacc ine, unspecified formulation [facility] 03-31-2017 Influenza, high dose seasonal Dr. Matilde Noguera MD Work Phone: [facility] 03-31-2017 influenza, high dose seasonal, preservative-free [facility] 10-09-2015 tetanus toxoid, redu alexei diphtheria toxoid, and acellular pertussis vaccine, adsorbed [facility] 07-12-2015 pneumococcal polysaccharide vaccine, 23 valent [facility] 08-27-2014 influenza virus vacc ine, whole virus [facility] [place] 08-27-2014 influenza, injectabl e, quadrivalent, preservative free Dr. Matilde Noguera Work Phone: [facility] 08-27-2014 influenza, seasonal, injectable Dr. Matilde Noguera Work Phone: [facility] Payers Date Payer Category Payer Self-pay [id number] 2020 Medicare supplementa l policy (as second payer) HUMANA MEDICARE SUPPLEMENT [id number] 2019 Medicare HUMANA MEDICARE HUMANA CHOICE-PPO MEDICARE [id number] 2019-Present [address] [place] [address] [id number] 2018 Medicare [id number] 2014 Medicare MEDICARE MEDICAR E PART A AND B xxxxxxxxxxx 2014-Present [phone] [address] [place] [id number] xxxxxxxxxxx [id number] 2014 Private Health Insurance HUMANA HUMANA MEDICARE SUPP xxxxxxxxx 2014-Present [address] [place] [address] xxxxxxxxx [id number] 2013 Private Health Insurance [id number] 2013 Private Health Insurance [id number] 2011 Medicare 2011 Medicare [id number] 1945 Unknown [id number] 1946 Unknown [id number]. 2.651 Unknown Unknown [id number]. 2.462 Unknown [id number]. 2.462 Unknown [id number]. 2.462 Unknown [id number] [id number]. 2.462 Unknown [id number]. 2.462 Unknown [id number]. 2.462 Unknown [id number]. 2.462 Unknown [id number] [id number]. 2.462 Unknown [id number]. 2.462 Unknown [id number]. 2.462 Unknown [id number]. 2.462 Unknown [id number]. 2.462 Unknown [id number]. 2.462 Unknown [id number]. 2.462 Unknown [id number]. 2.462 Social History Date Type Detail Facility Living Situation: Lives with spouse. [facility] Work Phone: Start: 10-21-2019 End: 01-13-2025 No Caffeine Use [facility] Work Phone: Start: 10-21-2019 End: 02-18-2025 Tobacco smoking status [facility] Former smoker [facility] Start: 07-08-1962 End: 07-26-1981 History of tobacco use Current smoker [place] Start: 07-08-1962 End: 07-26-1981 History of tobacco use Cigarette [place] Start: 10-21-2019 End: 01-13-2025 Alcohol intake Current non-drinker of alcohol (finding) [place] Start: 07-08-2017 Alcohol Comment last drinking 2011 [place], [place] Start: 1945 Sex Assigned At Not on file [place] Exposure to SARS-CoV -2 (event) Unable to assess [place] Start: 12-13-2019 End: 11-25-2024 Tobacco use and exposure Never used [place] Start: 12-06-2022 End: 12-31-2022 Exposure to SARS-CoV-2 (event) Not sure [place] Start: 12-11-2020 History SDOH Financial [employer] 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 Work Phone: Start: 07-08-2017 Alcohol Comment last drinking 2011 S [employer] Work Phone: Start: 01-18-2022 End: 07-23-2023 Tobacco smoking status NHIS Unknown if ever smoked [facility] Start: 11-04-2020 None [facility] Start: 12-06-2018 With Family [facility] Start: 1945 Sex Assigned At Male [facility] Start: 12-01-2022 End: 01-13-2025 Tobacco use panel [facility] Start: 12-31-2022 End: 11-25-2024 Alcohol intake Lifetime non-drinker (finding) [facility] Start: 12-17-2021 End: 07-30-2024 Sex Male (finding) [facility] How often do you nee d to have someone help you when you read instructions, pamphlets, or other written material from your doctor or pharmacy [SILS] Sometimes [facility] Has the electric, Splyst s, oil, or water company threatened to shut off services in your home in past 12Mo No [facility] Start: 04-19-2012 In a typical week, h ow many times do you talk on the telephone with family, friends, or neighbors? Patient declined [facility] Are you now , , , , never or living with a partner? [facility] How often to you hav e a drink containing alcohol? Never [facility] (I/We) worried kannan er (my/our) food would run out before (I/we) got money to buy more. Never true [facility] Start: 01-13-2025 Tobacco Comment Quit about 30 years ago [facility] Goals Date Patient Goal Desired Activity /State Functional Status Date Assessment Result Facility 03-10-2023 Are you deaf, or do you have serious difficulty hearing No 03/10/2023 6:08 PM Nicky Hemphill, SEBAS No [facility] 03-10-2023 Do you have difficul ty dressing or bathing No 03/10/2023 6:08 PM Nicky Hemphill, SEBAS No [facility] 03-10-2023 Because of a physica l, mental, or emotional condition, do you have difficulty doing errands alone such as visiting a physician's office or shopping No 03/10/2023 6:08 PM Nicky Hemphill, SEBAS No [facility] 02-28-2023 Functional status Activity Abili ty Unable to Assess;Bedrest [facility] Work Phone: 02-27-2023 Functional status Patient Activity Bedres t [facility] Work Phone: 01-19-2022 Functional status Ambulates [facility] Work Phone: 12-03-2013 Are you blind, or do you have serious difficulty seeing, even when wearing glasses No 12/03/2013 10:51 AM Mary Alfaro MA No [facility] 12-03-2013 Do you have serious difficulty walking or climbing stairs No 12/03/2013 10:51 AM Mary Alfaro MA No [facility] Mental Status Date Assessment Result Facility 02-23-2025 Cognitive function Voice/Name [facility] Work Phone: 12-08-2024 Cognitive function Awake;Follows Commands;Lethargic [facility] Work Phone: 04-19-2024 Cognitive function Level Of Cons ciousness Awake;Alert;Appropriate;Fol lows Commands [facility] Work Phone: 03-10-2023 Because of a physica l, mental, or emotional condition, do you have serious difficulty concentrating, remembering, or making decisions No 03/10/2023 6:08 PM Nicky Hemphill RN No [facility] 02-28-2023 Cognitive function Voice/Name [facility] Work Phone: 02-27-2023 Cognitive function Level Of Cons ciousness Awake;Alert;Appropriate;Fol lows Commands [facility] Work Phone: 06-25-2022 Cognitive function Voice/Name [facility] Work Phone: 01-19-2022 Cognitive function Voice/Name [facility] Work Phone: Clinical Notes 04-07-2020 to 03-04-2025 Note Date & Type Note Facility 03-04-2025 Progress note [facility] 03-04-2025 Progress note Note Date/Time March 04, 2025 2:59pm [facility] [facility] [address] [place] [address] OFFICE VISIT Date of Service: 03/04/25 MR#: [id number] Acct: [id number] Name: FRANKLIN BURTON Rep #: [id number] : 1945 Provider: JULIUS Regalado Age/Sex: 79/M Location: [facility] Status: Signed Intake Vital Signs 02/23/25 11:31 03/04/25 14:40 Height 5 ft 8 in Weight: 222 lb BP 117/68 Blood Pressure Location Rt brachial Position Sitting Respiration 16 Pulse 73 Pulse Source Monitor Temp 98.4 F Temp Source Temporal Pulse Oximetry (%) 97 Oxygen Delivery Method room air Intake Visit Reasons: CONSULT FOR FISTULAGRAM Is patient in pain?: No Allergies finasteride Allergy (Intermediate, Verified 03/04/25 14:41) mastodynia aspirin Adverse Reaction (Severe, Verified 03/04/25 14:41) cannot take d/t Zach's Vasculitis Medications ?Medication ?Instructions ?Recorded ?Confirmed ?Type handicap placard #1 ea 08/29/22 03/04/25 Rx handicap placard #1 ea 03/12/23 03/04/25 Rx triamcinolone acetonide 0.1 % 1 applic topical DAILY P RN 09/09/23 03/04/25 Rx topical ointment rash/itching #15 grams mirtazapine 15 mg tablet 15 mg PO QHS #90 tabs 03/04/25 Rx omeprazole 40 mg capsule,delayed 40 mg PO DAILY stomac h #90 caps 07/26/24 03/04/25 Rx release metoprolol tartrate 25 mg tablet 25 mg PO DAILY BP #90 tabs 09/13/24 03/04/25 Rx melatonin 3 mg capsule 3 mg PO HS PRN sleep #30 cap s 10/14/24 03/04/25 Rx magna life 1 dose topical QHS PRN 10/1503/04/25 History gabapentin 100 mg capsule 300 mg PO QHS 12/07/2403/04 History ropinirole 0.25 mg tablet 0.25 mg PO QHS #30 tabs 12/1803/04/25 Rx tamsulosin 0.4 mg capsule 0.8 mg (2 x 0.4 mg) PO QDAY #60 01/20/25 03/04/25 Rx caps cephalexin 500 mg capsule 500 mg PO TID #12 caps 02/2303/04/25 Rx neomycin-bacitracn Zn-polymyx 3.5 1 applic topical TID #28.3 grams 02/23/25 03/04/25 Rx mg-400 unit-5,000 unit/gram top oint (Neosporin ([id number])) oxycodone 5 mg tablet 5 mg PO Q6H PRN pain 7 days #10 02/23/25 03/04/25 Rx tabs oxycodone-acetaminophen 5 mg-325 1 tab PO Q6H PRN PRN severe pain 02/23/25 03/04/25 History mg tablet Have you fallen in the past year?: Yes PFSH Medical History Uses wheelchair Walker as ambulation aid Ambulates with cane Shortness of breath on exertion Dialysis patient Wears hearing aid Wears dentures Arthritis Prostate disease Anemia History of renal [...] Chest pain Abnormal stress echo Surgical History (Updated 03/04/25 @ 15:07 by JULIUS Regalado) Hx of bilateral cataract extraction S/P TURP [...] house 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 He has had this L upper arm fistula for about 3 years, started dialysis about 2 year ago. He reports that at dialysis a week or so ago, his fistula infiltrated so he developed bruising and swelling and then they had a clamp over to help with bleeding after decannulation and it made the distal portion puff out more and that appearance worried one of the nurses there leading to the referral. He reports to him it otherwise looks as it usually does. He reports no issues, other than occasional infiltrations, with the function of his fistula. He is completing his sessions and denies any prolonged bleeding, any new left arm/handswelling/pain/numbness/paresthesia s. ROS General General: Yes fatigue and weakness; No weight change, appetite, colon cancer or breast cancer HEENT HEENT: No difficulty swallowing, eye injury, eye surgery, swollen glands or hoarseness Endo Endocrine: No thyroid disease, diabetes mellitus, thyroid cancer, Hair loss, heat intolerance or cold intolerance Skin Skin: No rash or changing moles Musc Musculoskeletal: Yes back problems and arthritis; No rheumatoid arthritis, gout or joint pain Cardio Cardiovascular: No murmur, pacemaker, heart disease, atrial fibrillation, high blood pressure, heart attack, heart stent, palpitations, shortness of breath with exertion or chest pain Psych Psychiatric: No depression, anxiety or hearing voices Resp Respiratory: No shortness of breath, No sleep apnea, Yes cough, No COPD, No asthma, No emphysema and No wheezing Gastro Gastrointestinal: No abdominal pain, No nausea or vomiting, No diarrhea, No constipation, No blood in stool, Yes acid reflux, No hemorrhoids, No ulcers, No gallbladder problem and No black,tarry stools Héctor Hematologic: No blood thinners, No blood disorders, No bleeding, No anemia and No blood clots Neuro Neurologic: No system reviewed and no additional complaints, except as documented, No as per HPI, No abnormal gait, Yes abnormal hearing, No abnormal movements, No abnormal speech, No behavioral changes, No burning sensations, No confusion, No convulsions, Yes disequilibrium, No dizziness, No localized weakness, No frequent falls, No headache(s), No lack of coordination, No loss ofvision, No memory loss, Yes numbness, No other visual disturbances, No radicularpain, Yes restless legs, No sensory deficit, No syncope, Yes tingling, Yes tremor(s), Yes weakness and No other Exam Const General: cooperative, healthy appearing and comfortable Nutritional Appearance: average body habitus Orientation: alert, awake and oriented x3 HENMT Head: normocephalic and atraumatic Ears: hearing grossly normal bilaterally and external ears normal Nose: external nose normal Eyes General: appearance normal, both eyes and all related structures Neck Neck: normal visual inspection and trachea midline Resp Effort & Inspection: normal respiratory effort, able to speak in complete sentences, no grunting, not labored, no respiratory distress and no retractions Cardio Rate: regular rate Rhythm: regular rhythm Other: Left upper arm AV fistula with great thrill and bruit throughout; there is some mild swelling and ecchymosis around the fistula, soft to palpation. No wounds/ulcers or otherwise compromised skin overlying the fistula. Palpable L radial pulse Skin General: no rashes or lesions noted Wounds: no wounds Neuro General: moves all extremities, no focal motor deficits and CN's II-XI intact bilaterally Speech: speech normal Psych Appearance: grossly normal Mental Status: mental status grossly normal Affect: normal affect Speech and Movement: speech and movement normal Attitude: cooperative Coding Level of Care Code Off vis,new,level 3 Diagnoses End stage renal disease on dialysis N18.6; Z99.2 AV fistula I77.0 Assessment and Plan Assessment and Plan (1) End stage renal disease on dialysis: Status: Inactive (2) AV fistula: Status: Acute Orders: Orders AV Fistula/Dialysis Graft Scan Today I77.0 - Arteriovenous fistula, acquired, N18.6 - End stage renal disease, Z99.2 - Dependence on renal dialysis Plan Exam is consistent with reported history of recent infiltration, but otherwise fistula is patent with good flow and per patient report is functioning well. Will order ultrasound for further examination. Plan for return as needed pendingultrasound results or new concerns. Clinical Quality Measures Falls Risk Screening/Assistive Devices Have you fallen in the past year?: Yes 03/04/25 1510 <Electronically signed by Kerri MADRID> Date _ Kerri MADRID 03/07/25 1109<Electronically signed by Jesus Milligan MD> Cosigner Signature: Date (if applicable) Jesus Milligan MD CC: ~ [facility] Work Phone: 1(217) 183-421710-08-2025 Discharge summary Author Kael Decker [facility] Note Date/Time February 23, 2025 2: 44pm [facility] Medical Records Department [address] [place] [address] Instructions for Home/Discharge Instructions 02/23/25 1245 MR#: [id number] Acct: [id number] Name: FRANKLIN BURTON Rep #:[id number] : 1945 79 From: Kael Decker MD PCP: Kyler Garcia MD Status:REG SDC Discharge Instructions DC O2, CPAP, BIPAP needs Home O2 Discharge instructions: No Dressing / Incision Discharge Activity: Return to Normal Activity and May Not Drive (while taking narcotic pain medications.) Dressing / Incision Call your doctor if you observe: Fever of 101 or Higher Follow Up Care Please Follow Up With: Kael Decker MD When: Call [phone] for an appointment Test Results: Test results from this visit will be discussed in further detail at your follow- up appointment, if applicable. Discharge Plan Admission Primary Reason for Your Visit: circumcision Attending Provider: Kael Decker Primary Care Provider: Kyler Garcia Instructions Print Language: Ukrainian Discharge Orders/Prescriptions Prescriptions: New cephalexin 500 mg capsule 500 mg PO TID Qty: 12 0RF Neosporin (onf-nyp-ccaqj) 3.5mg-400 unit- 5,000 unit/gram ointment 1 applic topical TID Qty: 28.3 0RF Rx Instructions: apply to circumcision oxycodone 5 mg tablet 5 mg PO Q6H PRN (Reason: pain) 7 Days Qty: 10 0RF Continued (DME) handicap placard See Rx Instructions .ROUTE .MEDSUPPLY Qty: 1 0RF Rx Instructions: Length of time: 5 years Diagnosis: Impaired physical mobility z74.09 (DME) handicap placard See Rx Instructions .ROUTE .MEDSUPPLY Qty: 1 0RF Rx Instructions: Length of time: 5 years Diagnosis: Impaired physical mobility z74.09 triamcinolone acetonide 0.1 % ointment 1 applic topical DAILY PRN (Reason: rash/itching) Qty: 15 0RF mirtazapine 15 mg tablet 15 mg PO QHS Qty: 90 1RF gabapentin 100 mg capsule 300 mg PO QHS magna life 1 dose topical QHS PRN Rx Instructions: magna life cream topically to bilateral feet every evening oxycodone-acetaminophen 5-325 mg tablet 1 tab PO Q6H PRN PRN (Reason: severe pain) omeprazole 40 mg capsule,delayed release(DR/EC) 40 mg PO DAILY Qty: 90 1RF metoprolol tartrate 25 mg tablet 25 mg PO DAILY Qty: 90 1RF melatonin 3 mg capsule 3 mg PO HS PRN (Reason: sleep) Qty: 30 0RF ropinirole 0.25 mg tablet 0.25 mg PO QHS Qty: 30 2RF tamsulosin 0.4 mg capsule 0.8 mg PO QDAY Qty: 60 1RF Referrals / Follow Up: Kael Decker MD [Med Staff - Active Staff, Urology] Kyler Garcia MD [Primary Care Provider, Family Practice] Disposition Disposition (needs filled in before D/C Order can be placed): Home, Self Care 02/23/25 1245<Electronically signed by Kael Decker MD>Kael Decker MD CC: Kyler Garcia MD ~ Signed [facility] Work Phone: 1(251) 858-559710-08-2025 Discharge summary [facility] Medical Records Department [address] [place] [address] Instructions for Home/Discharge Instructions 02/23/25 1245 MR#: [id number] Acct: [id number] Name: FRANKLIN BURTON Rep #:[id number] : 1945 79 From: Kael Decker MD PCP: Kyler Garcia MD Status:REG SDC Discharge Instructions DC O2, CPAP, BIPAP needs Home O2 Discharge instructions: No Dressing / Incision Discharge Activity: Return to Normal Activity and May Not Drive (while taking narcotic pain medications.) Dressing / Incision Call your doctor if you observe: Fever of 101 or Higher Follow Up Care Please Follow Up With: Kael Decker MD When: Call [phone] for an appointment Test Results: Test results from this visit will be discussed in further detail at your follow- up appointment, if applicable. Discharge Plan Admission Primary Reason for Your Visit: circumcision Attending Provider: Kael Decker Primary Care Provider: Kyler Garcia Instructions Print Language: Ukrainian Discharge Orders/Prescriptions Prescriptions: New cephalexin 500 mg capsule 500 mg PO TID Qty: 12 0RF Neosporin (dpf-gqx-whxtk) 3.5mg-400 unit- 5,000 unit/gram ointment 1 applic topical TID Qty: 28.3 0RF Rx Instructions: apply to circumcision oxycodone 5 mg tablet 5 mg PO Q6H PRN (Reason: pain) 7 Days Qty: 10 0RF Continued (DME) handicap placard See Rx Instructions .ROUTE .MEDSUPPLY Qty: 1 0RF Rx Instructions: Length of time: 5 years Diagnosis: Impaired physical mobility z74.09 (DME) handicap placard See Rx Instructions .ROUTE .MEDSUPPLY Qty: 1 0RF Rx Instructions: Length of time: 5 years Diagnosis: Impaired physical mobility z74.09 triamcinolone acetonide 0.1 % ointment 1 applic topical DAILY PRN (Reason: rash/itching) Qty: 15 0RF mirtazapine 15 mg tablet 15 mg PO QHS Qty: 90 1RF gabapentin 100 mg capsule 300 mg PO QHS magna life 1 dose topical QHS PRN Rx Instructions: magna life cream topically to bilateral feet every evening oxycodone-acetaminophen 5-325 mg tablet 1 tab PO Q6H PRN PRN (Reason: severe pain) omeprazole 40 mg capsule,delayed release(DR/EC) 40 mg PO DAILY Qty: 90 1RF metoprolol tartrate 25 mg tablet 25 mg PO DAILY Qty: 90 1RF melatonin 3 mg capsule 3 mg PO HS PRN (Reason: sleep) Qty: 30 0RF ropinirole 0.25 mg tablet 0.25 mg PO QHS Qty: 30 2RF tamsulosin 0.4 mg capsule 0.8 mg PO QDAY Qty: 60 1RF Referrals / Follow Up: Kael Decker MD [Med Staff - Active Staff, Urology] Kyler Garcia MD [Primary Care Provider, Family Practice] Disposition Disposition (needs filled in before D/C Order can be placed): Home, Self Care 02/23/25 1245Kael Decker MD CC: Kyler Garcia MD ~ Signed [facility]10-08-2025 Consult note Author Rasheed Troncoso [facility] Note Date/Time February 23, 2025 11 :37am [facility] Medical Records Department [address] [place] [address] Pre-Anesthesia Evaluation 02/23/25 1131 MR#: [id number] Acct: [id number] Name: FRANKLIN BURTON Rep #:[id number] : 1945 79 From: Rasheed Monteiro PCP: Kyler Garcia MD Status:REG SDC Y Race: C Location: [place] [address] ASA Classification* ASA Classification ASA Classification: 3 Assessment & Plan Anesthesia* Anesthesia Assessment Anesthesia Assessment: Discussed sedation and/or anesthesia options, risks, benefits, and alternatives with patient/parents/legal guardian/POA. Questions invited. The patient/parents/legal guardian/POA seems to understand and agrees to proceedwith anesthesia plan. Reviewed the physical assessment, medical history, allergy history and patient home medications list prior to surgery/procedure/anesthetic and documented any changes. Performed airway and anesthesia risk assessments. Anesthesia Type Anesthesia Type: General History Source History Obtained from:: Patient and Chart Anesthesia Focused Assessment* Oxygen Delivery Method: Room Air Airway Assessment Mouth opens: >3 cm Mallampati Score: II Teeth Condition: Dentures Neck Range of motion (ROM): Limited ROM Labs Anesthesia Preop lab: CBC WBC, (4.4-11.0) 3.6 K/mm3 L 01/05/25, 12:35 RBC, (4.6-6.2) 3.53 M/mm3 L 01/05/25, 12:35 Hgb, (13.0-16.5) 11.0 g/dL L 01/05/25, 12:35 Hct, (40-54) 33.6 % L 01/05/25, 12:35 Plt Count, (150-450) 136 K/mm3 L 01/05/25, 12:35 CHEMISTRY Potassium, (3.3-5.1) 3.8 mmol/L 01/05/25, 12:35 Sodium, (133-145) 139 mmol/L 01/05/25, 12:35 Magnesium, (1.5-2.2) 2.0 mg/dL 12/08/24, 01:22 Phosphorus, (2.7-4.5) 2.8 mg/dL 12/08/24, 01:22 BUN, (4-19) 9 mg/dL 01/05/25, 12:35 Creatinine, (0.70-1.20) 2.63 mg/dL H 01/05/25, 12:35 Glucose, (70-99) 114 mg/dL H 01/05/25, 12:35 TSH, (0.358-3.74) 1.14 uIU/mL 01/19/22, 06:50 COAG PT, (11.7-14.9) 13.8 SECONDS 04/19/24, 15:50 Pre-Assessment Diagnosis/Proposed Procedure Planned Operative Procedure(s): Circumcision Anesthesia History Anesthesia History - linoleum mechanic: Anesthesia History - linoleum mechanic Hx Hospitalization Yes: 11/2024 STROKE-LIKE 02/18/25 16:26 SYMPTOMS; R/T MEDS Any Problems With Anesthesia No 02/18/25 16:26 Cholinesterase deficiency No 02/18/25 16:26 You/Your Family Experience No 02/18/25 16:26 fever (hyperthermia) with Relationship Recent Exposure to Contagious No 06/25/22 08:32 Disease Does patient have nerve No 02/18/25 16:26 stimulator Patient instructed to have device shut off --Does patient have Pacemaker or ICD? When Was Last Pacemaker Check QUESTION #4 FULL TEXT: You/Your Family Experience fever (hyperthermia) with Anesthesia Last Oral Intake Last Oral intake: Last Oral Intake NPO since Meds taken in AM with sips of water? Meds patient instructed to take am of surgery PONV PONV - linoleum mechanic: PONV - linoleum mechanic Female No 02/18/25 16:26 HX of Motion Sickness No 02/18/25 16:26 HX of N/V After Surgery No 02/18/25 16:26 Non-Smoker Yes 02/18/25 16:26 Duration of Surgery greater Yes 02/18/25 16:26 than 60 minutes Number of Risk Factors 2 02/18/25 16:26 PONV Score Moderate Risk 02/18/25 16:26 Height & Weight Height & Weight: Anesthesia: Height & Weight Height 5 ft 8 in 01/05/25 12:17 Respiratory Assessment Respiratory Assessment - linoleum mechanic: Respiratory Tract Infection Hx - linoleum mechanic Hx Respiratory Tract Infection No 02/18/25 16:26 STOP Sleep Apnea STOP Sleep Apnea - linoleum mechanic: STOP Sleep Apnea - linoleum mechanic Hx Hypertension Yes 02/18/25 16:26 Hx Sleep Apnea No 02/18/25 16:26 CPAP No 02/18/25 16:26 BIPAP No 02/18/25 16:26 Do you snore loudly (louder No 02/18/25 16:26 than talking or can be heard Do you often feel tired/ No 02/18/25 16:26 fatigued/ sleepy during daytime? Has anyone observed you stop No 02/18/25 16:26 breathing during sleep? STOP Results Negative 02/18/25 16:26 QUESTION #5 FULL TEXT : Do you snore loudly (louder than talking or can be heard through closed doors)? 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 Specify any problems Hx of Preganancy in last 3 N/A 02/18/25 16:26 Months Nurse Filling Out Transfusion MGRIFFITH 02/18/25 16:26 & Questions: Date: 10/03/25 10/03/25 16:26 Time: 16:31 10/03/25 16:26 Patient unable to answer at this time (ie. confused, unrespo /Reproduction History /Reproductive History - linoleum mechanic: /Reproductive Hx- linoleum mechanic Hx Now Gestational Age (in weeks): EDC: Hx Hx Para Hx Section SAB Active Medications Active Medications: Current Medications Generic Name Dose Route Start Last Admin Trade Name Freq PRN Reason Stop Dose Admin Cefazolin Sodium 2 gm/ Sodium 110 mls @ 200 mls/hr 02/23/25 12:20 Chloride IV 02/23/25 12:52 INTRAOP ONE Lactated Ringer's 1,000 mls @ 15 mls/hr 02/23/25 11:15 IV .Q48H JUANY PFSH Medical History Uses wheelchair Walker as ambulation aid Ambulates with cane Shortness of breath on exertion Dialysis patient Wears hearing aid Wears dentures Arthritis Prostate disease Anemia History of renal [...] Chest pain Abnormal stress echo Home Medications ?Medication ?Instructions ?Recorded ?Last Taken ?Type handicap placard #1 ea 08/29/22 Unknown Rx handicap placard #1 ea 03/12/23 Unknown Rx triamcinolone acetonide 0.1 % 1 applic topical DAILY P RN 09/09/23 Unknown Rx topical ointment rash/itching #15 grams mirtazapine 15 mg tablet 15 mg PO QHS #90 tabs Unknown Rx omeprazole 40 mg capsule,delayed 40 mg PO DAILY stomac h #90 caps 07/26/24 Unknown Rx release metoprolol tartrate 25 mg tablet 25 mg PO DAILY BP #90 tabs 09/13/24 Unknown Rx melatonin 3 mg capsule 3 mg PO HS PRN sleep #30 cap s 10/14/24 Unknown Rx magna life 1 dose topical QHS PRN 10/15 Unknown History gabapentin 100 mg capsule 300 mg PO QHS 12/07/24 Unkno wn History ropinirole 0.25 mg tablet 0.25 mg PO QHS #30 tabs 12/18 11/10 Unknown Rx tamsulosin 0.4 mg capsule 0.8 mg (2 x 0.4 mg) PO QDAY #60 01/20/25 Unknown Rx caps Allergy/AdvReac Type Severity Reaction Status Date / Time finasteride Allergy Intermediate mastodynia Verified 02/23/25 11:30 aspirin AdvReac Severe cannot Verified 02/23/25 11:30 take d/t Zach's Vasculitis Family History Mother [...] house 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 02/23/25 1137 <Electronically signed by Rasheed Troncoso MD> Date _ Rasheed Troncoso MD Cosigner Signature: Date CC: ~ Signed [facility] Work Phone: 1(658) 850-690710-08-2025 Consult note [facility] Medical Records Department [address] [place] [address] Anesthesia Postop Eval I 02/23/25 1327 MR#: [id number] Acct: [id number] Name: FRANKLIN BURTON Rep #:[id number] : 1945 79 From: Evan Groves CRNA PCP: Kyler Garcia MD Status:REG [facility] Y Race: C Location: [place] [address] Anesthesia: Postop Eval I Current Vital Signs Temperature: 98.1 F Pulse Rate: 80 Blood Pressure: 127/72 Respiratory Rate: 16 Pulse Ox: 98 Assessment Airway patent: Yes Spontaneous unlabored respirations: Yes nausea: No Vomiting: No Anesthesia Complication: No Fluid Hydration Crystalloid volume administer (ml): 300 Total IV fluid infused: 300 Progress Note Anesthesia document: Postop Eval 1 completed: Yes 02/23/25 1328 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 Medical Records Department [address] [place] [address] Operative Report 02/23/25 1245 MR#: [id number] Acct: [id number] Name: FRANKLIN BURTON Rep #:[id number] 1 : 1945 79 From: Kael Decker MD PCP: Kyler Garcia MD Status:REG [facility] Location: [place] [address] Operative Report (Standard) Operative Information Date of Procedure: 02/23/25 Pre-Operative Diagnosis: Phimosis Post-Operative Diagnosis: The same Surgery/Procedure Performed: Circumcision airplane inspector: No Type of Anesthesia: General RN Documented Start/Stop Times: Operation Date: 02/23/25 12:35 Case Time Into Pre-Op 02/23/25 11:10 Procedure Start Time: 12:20 Procedure Stop Time: 13:15 Select all DRAINS/GRAFTS/IMPLANTS that apply: None Estimated Blood Loss: 10 cc Specimen collected: No Description of surgery: Indications 79-year-old male with significant phimosis of the foreskin unable toretract it or cleanthe head of the penis explained to the patient that it may be difficult to clean the penis risk forcancer etc. also risk that if he ever needs a catheter is coming a possible put in so he agreed to proceed with a circumcision. Patient was taken back to the operating room after smooth ductionof anesthesia the table penis and testicles were prepped and draped in shaven usual sterile fashion made acircumferential incision around the circumcision line use electrocautery to dissect the foreskin off the penis I then used interrupted 3-0 chromic sutures to do interrupted sutures all the way aroundto reattach the shaft skin to the subcoronal skin had to put extra stitches in 1 side there was bleeding but then this stopped dressings and pressure dressing was placed on the penis patient anesthetic was reversed plan to see him back in a few weeks for checkup Surgical Findings: Circumcision completed Complications Complications: No Admit VTE Documentation VTE Present on Admission: No VTE Mechan Device Prophylaxis: [facility] VTE Pharm Prophylaxis ordered?: No 02/23/25 1317 Cosigner Signature (if applicable): CC: Dr. Kael Decker MD; Kyler Garcia MD~ Signed [facility]10-08-2025 Consult note [facility] Medical Records Department [address] [place], [place] [id number] Pre-Anesthesia Evaluation 02/23/25 1131 MR#: [id number] Acct: [id number] Name: FRANKLIN BURTON Rep #:[id number] : 1945 79 From: Rasheed Monteiro PCP: Kyler Garcia MD Status:REG SDC Y Race: C Location: [place] [address] ASA Classification* ASA Classification ASA Classification: 3 Assessment & Plan Anesthesia* Anesthesia Assessment Anesthesia Assessment: Discussed sedation and/or anesthesia options, risks, benefits, and alternatives with patient/parents/legal guardian/POA. Questions invited. The patient/parents/legal guardian/POA seems to understand and agrees to proceedwith anesthesia plan. Reviewed the physical assessment, medical history, allergy history and patient home medications list prior to surgery/procedure/anesthetic and documented any changes. Performed airway and anesthesia risk assessments. Anesthesia Type Anesthesia Type: General History Source History Obtained from:: Patient and Chart Anesthesia Focused Assessment* Oxygen Delivery Method: Room Air Airway Assessment Mouth opens: >3 cm Mallampati Score: II Teeth Condition: Dentures Neck Range of motion (ROM): Limited ROM Labs Anesthesia Preop lab: CBC WBC, (4.4-11.0) 3.6 K/mm3 L 01/05/25, 12:35 RBC, (4.6-6.2) 3.53 M/mm3 L 01/05/25, 12:35 Hgb, (13.0-16.5) 11.0 g/dL L 01/05/25, 12:35 Hct, (40-54) 33.6 % L 01/05/25, 12:35 Plt Count, (150-450) 136 K/mm3 L 01/05/25, 12:35 CHEMISTRY Potassium, (3.3-5.1) 3.8 mmol/L 01/05/25, 12:35 Sodium, (133-145) 139 mmol/L 01/05/25, 12:35 Magnesium, (1.5-2.2) 2.0 mg/dL 12/08/24, 01:22 Phosphorus, (2.7-4.5) 2.8 mg/dL 12/08/24, 01:22 BUN, (4-19) 9 mg/dL 01/05/25, 12:35 Creatinine, (0.70-1.20) 2.63 mg/dL H 01/05/25, 12:35 Glucose, (70-99) 114 mg/dL H 01/05/25, 12:35 TSH, (0.358-3.74) 1.14 uIU/mL 01/19/22, 06:50 COAG PT, (11.7-14.9) 13.8 SECONDS 04/19/24, 15:50 Pre-Assessment Diagnosis/Proposed Procedure Planned Operative Procedure(s): Circumcision Anesthesia History Anesthesia History - linoleum mechanic: Anesthesia History - linoleum mechanic Hx Hospitalization Yes: 11/2024 STROKE-LIKE 02/18/25 16:26 SYMPTOMS; R/T MEDS Any Problems With Anesthesia No 02/18/25 16:26 Cholinesterase deficiency No 02/18/25 16:26 You/Your Family Experience No 02/18/25 16:26 fever (hyperthermia) with Relationship Recent Exposure to Contagious No 06/25/22 08:32 Disease Does patient have nerve No 02/18/25 16:26 stimulator Patient instructed to have device shut off --Does patient have Pacemaker or ICD? When Was Last Pacemaker Check QUESTION #4 FULL TEXT: You/Your Family Experience fever (hyperthermia) with Anesthesia Last Oral Intake Last Oral intake: Last Oral Intake NPO since Meds taken in AM with sips of water? Meds patient instructed to take am of surgery PONV PONV - linoleum mechanic: PONV - linoleum mechanic Female No 02/18/25 16:26 HX of Motion Sickness No 02/18/25 16:26 HX of N/V After Surgery No 02/18/25 16:26 Non-Smoker Yes 02/18/25 16:26 Duration of Surgery greater Yes 02/18/25 16:26 than 60 minutes Number of Risk Factors 2 02/18/25 16:26 PONV Score Moderate Risk 02/18/25 16:26 Height & Weight Height & Weight: Anesthesia: Height & Weight Height 5 ft 8 in 01/05/25 12:17 Respiratory Assessment Respiratory Assessment - linoleum mechanic: Respiratory Tract Infection Hx - linoleum mechanic Hx Respiratory Tract Infection No 02/18/25 16:26 STOP Sleep Apnea STOP Sleep Apnea - linoleum mechanic: STOP Sleep Apnea - linoleum mechanic Hx Hypertension Yes 02/18/25 16:26 Hx Sleep Apnea No 02/18/25 16:26 CPAP No 02/18/25 16:26 BIPAP No 02/18/25 16:26 Do you snore loudly (louder No 02/18/25 16:26 than talking or can be heard Do you often feel tired/ No 02/18/25 16:26 fatigued/ sleepy during daytime? Has anyone observed you stop No 02/18/25 16:26 breathing during sleep? STOP Results Negative 02/18/25 16:26 QUESTION #5 FULL TEXT : Do you snore loudly (louder than talking or can be heard through closeddoors)? 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 Specify any problems Hx of Preganancy in last 3 N/A 02/18/25 16:26 Months Nurse Filling Out Transfusion MGRIFFITH 02/18/25 16:26 & Questions: Date: 02/18/25 02/18/25 16:26 Time: 16:31 02/18/25 16:26 Patient unable to answer at this time (ie. confused, unrespo /Reproduction History /Reproductive History - linoleum mechanic: /Reproductive Hx- linoleum mechanic Hx Now Gestational Age (in weeks): EDC: Hx Hx Para Hx Section SAB Active Medications Active Medications: Current Medications Generic Name Dose Route Start Last Admin Trade Name Freq PRN Reason Stop Dose Admin Cefazolin Sodium 2 gm/ Sodium 110 mls @ 200 mls/hr 02/23/25 12:20 Chloride IV 02/23/25 12:52 INTRAOP ONE Lactated Ringer's 1,000 mls @ 15 mls/hr 02/23/25 11:15 IV .Q48H JUANY PFSH Medical History Uses wheelchair Walker as ambulation aid Ambulates with cane Shortness of breath on exertion Dialysis patient Wears hearing aid Wears dentures Arthritis Prostate disease Anemia History of renal [...] Chest pain Abnormal stress echo Home Medications ?Medication ?Instructions ?Recorded ?Last Taken ?Type handicap placard #1 ea 08/29/22 Unknown Rx handicap placard #1 ea 03/12/23 Unknown Rx triamcinolone acetonide 0.1 % 1 applic topical DAILY P RN 09/09/23 Unknown Rx topical ointment rash/itching #15 grams mirtazapine 15 mg tablet 15 mg PO QHS #90 tabs Unknown Rx omeprazole 40 mg capsule,delayed 40 mg PO DAILY stomac h #90 caps 07/26/24 Unknown Rx release metoprolol tartrate 25 mg tablet 25 mg PO DAILY BP #90 tabs 09/13/24 Unknown Rx melatonin 3 mg capsule 3 mg PO HS PRN sleep #30 cap s 10/14/24 Unknown Rx magna life 1 dose topical QHS PRN 10/15 Unknown History gabapentin 100 mg capsule 300 mg PO QHS 12/07/24 Unkno wn History ropinirole 0.25 mg tablet 0.25 mg PO QHS #30 tabs 12/18 11/10 Unknown Rx tamsulosin 0.4 mg capsule 0.8 mg (2 x 0.4 mg) PO QDAY #60 01/20/25 Unknown Rx caps Allergy/AdvReac Type Severity Reaction Status Date / Time finasteride Allergy Intermediate mastodynia Verified 02/23/25 11:30 aspirin AdvReac Severe cannot Verified 02/23/25 11:30 take d/t Zach's Vasculitis Family History Mother [...] house 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 02/23/25 1137 MD> Date _ Rasheed Troncoso MD Cosigner Signature: Date CC: ~ Signed [facility]10-02-2025 NoteHNO ID: [id number] Author: KYLER GARCIA MD Service: ? Author Type: Physician Type: Progress Notes Filed: 02/18/2025 20:18 Note Text: Family Medicine OUTPATIENT VISIT February 17, 2025 CC: Pancreatic lesion HPI: 79 year old male patient with a history of T2DM not on meds. Last A1c in normal range iso iHD Peripheral neuropathy on gabapetin 300 Insomnia on melatonin, mirtazapine- also using percocet as a sleeping aid though advised this is not purpose of this prescription HTN on metoprolol 25 BID HLD on atorvastatin 40 On plavix 75 For unclear reasons, denies hx of PAD, CAD, past OK, past strokes Hernia GERD on omprazole and simethicone Chronic pain on percocet ESRD on iHD MWF, follows at [facility] and sees check out cashier there. 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 Elevated PSA follows with urology Obesity Abnormal parathyroid level, managed by nephrology Encephalopathy, likely multifactorial with admission for this 12/10 and possibly 2/2 gabapentin and lyrica being taken not as prescribed since resolved Chronic debility Metabolic bone disease, last dexa 2017 osteopenia managed by nephro at dialysis On plavix for unclear reasons, patient has been requested to obtain records from prior PCP, cards, or current nephrology to determine why he is on this KATHY on 01/10 At that visit, discussed he should try to clarify with his outside system physicians why he is on plavix Endorsed symptoms anxiety depression but did not want to discuss. Asked if he could get information from check out cashier so we could disuss care. He was using Mcadoo for chronic back pain and as a sleeping aid. Consulted pall med for ESRD and medical fraily, not wanting to be listed for transplant. Bp was controlled. PSG ordered, hd given away his CPAP. Labs: LDL 30 A1c 5.6 PSA 8.2 Did not obtain echo Interval events: They declined pall med referral as they did not want to go to [facility]. Rheum visit 02/10, ordered CT sinus. Considering prednisone BP at home: 115/70 would be a typical number he states though did not bring a log today. Has been out of opiates for about two weeks. Prior to that he was using it BID. Did not send in refill request. Reports no withdrawal symptoms. Saw urology on Friday. They are doing a circumcision to address his prostate issues to allow them to place a catheter. He reportedly is not planning to do a prostate biopsy. Review of Systems PAIN ASSESSMENT: chronic generalized pain. GENERAL: No weight loss, or fevers HEENT: Negative for frequent or significant headaches RESPIRATORY: Negative for cough, wheezing, shortness of breath CARDIOVASCULAR: Negative for chest pain, palpitations, PND or orthopnea GI: No nausea, vomiting, or diarrhea or abdominal pain. No TX bleeding or melana : Does make urine. Health maintenance: Dilated Retinal Exam Never done Diabetic Foot Exam Never done Shingrix Vaccine(1 of 2) Never done Medicare Annual Wellness Visit Never done RSV Vaccine(1 - 1-dose 75+ series) Never done Hepatitis B Vaccine(8 of 8 - Risk Dialysis 4-dose series) due on 12/31/2023 Advance Directive Discussion Never done Covid-19 Vaccine( season) due on 01/17/2025 Allergies: ALLERGIES Allergen Reactions Aspirin Other: See Comments Kidney issues Seasonal Allergies Other: See Comments Sneezing, itchy and watery eyes Medications: clopidogrel (PLAVIX) 75 mg tablet Take 1 tablet by mouth once daily. iv contrast (will be provided with radiology test) MRI PANC/LC Inject, intravenously, once for 1 dose. No IV access, insert saline lock prior to the beginning of sedation, infusion, injection of imaging exam. Discontinue saline lock post exam. If Pt. has a central line or IVAD, may access for administration according to line specific nursing protocol. Once exam is complete flush line and de-access according to line specific nursing protocol in the MR contrast administration guidelines link. acetaminophen (TYLENOL) 500 mg tablet Take 1 tablet by mouth every 6 hours as needed for pain. atorvastatin (LIPITOR) 40 mg tablet Take 1 tablet by mouth every evening. benzocaine (AMERICAINE) 20 % oral spray Apply 1 application to affected area four times a day as needed. Capsaicin 0.1 % crea Apply to affected area two times a day. carboxymethylcellulose (REFRESH) 0.5 % drop Use 1 drop in both eyes as needed. finasteride (PROSCAR) 5 mg tablet Take 1 tablet by mouth once daily. gabapentin (NEURONTIN) 300 mg capsule Take 1 capsule by mouth daily at bedtime. melatonin 5 mg tablet Take 1 tablet by mouth daily at bedtime. metoprolol tartrate, short acting, (LOPRESSOR) 25 mg tablet Take 1 tablet by mouth once daily. mirtazapine (REMERON) 15 mg tablet Take 1 tablet by mouth daily at bedtime. naloxone 4 mg/actuation nasal spray (YUNIOR (more content not included)...[facility]09-19-2025 NoteHNO ID: [id number] Author: JCARLOS HERNANDEZ RT(R) Service: ? Author Type: Sort Manager Type: Progress Notes Filed: 02/04/2025 16:07 Note Text: Radiology Service Progress Note PATIENT NAME: Franklin Burton DATE OF SERVICE: February 04, 2025 TIME: 4:07 PM PATIENT IDENTITY VERIFICATION COMPLETED USING TWO (2) IDENTIFIERS: Name and Date of confirmed by patient verbally. FALL SCREENING: Has the patient had 2 falls in the last year or 1 fall with injury or currently using an Ambulatory Assistive Device (Walker, Cane, Wheelchair, Crutches, etc.)? No PATIENT GENDER DATA: Assigned male at PATIENT RELEVANT IMPLANT DATA REVIEWED: Yes PATIENT PRESENTS WITH AN IMPLANTABLE OR ATTACHED CAR PORTER: No RADIOLOGY DEPARTMENT: CT; Exam(s) Completed: Sinus . Anesthesia: No PERIPHERAL IV DATA: Not applicable SIGNED BY: RT Dung(R) February 04, 2025 4:07 [facility]09-18-2025 Radiology Diagnostic study note [facility] Imaging Services [address] [place] [id number] Abdomen/Pelvis W IV Cont ONLY MR#: [id number] Acct: [id number] Name: FRANKLIN BURTON Rep #: [id number] : 1945 M 79 From: [facility] PCP: Dr. Matilde Noguera MD Status: REG CLI Study:Abdomen/Pelvis W IV Cont ONLY Date of E xam: 02/01/25 Exam# [id number] Ordering Dr: Yudith Decker MD PROCEDURE: ABDOMEN/PELVIS W IV CONT ONLY 02/01/2025 REASON FOR EXAM: GROSS HEMATURIA TECHNIQUE: Procedure Code: [id number] Modality: CT Procedure: ABDOMEN/PELVIS W IV CONT ONLY Coronal and Sagittal reconstruction series were provided. CONTRAST: Isovue-300 VOLUME: 95 mL One or more dose reduction techniques were used (e.g., Automated exposure control, adjustment of the mA and/or kV according to patient size, use of iterative reconstruction technique. RADIATION DOSE SUMMARY: DLP: 1660.5 mGycm COMPARISON: Previous CT of the abdomen and pelvis of 02/25/2023 FINDINGS: Lung bases: Mild dependent atelectasis Liver: Normal size. No mass. Gallbladder: Decompressed. Spleen: Calcified granulomata. No mass or splenomegaly. Pancreas: Diffuse pancreatic atrophy. Multi cystic lesions in the pancreas including a 2.6 cm lesion in the head of the pancreas, a 2.1 cm cystic lesion in the uncinate process and a 1.3 cm lesion in the body. The lesion of the pancreatic head appears increased since previous exam. Adrenals: Normal Kidneys: Atrophic kidneys. 3.8 cm left renal cysts. No hydronephrosis. No nephrolithiasis. Bladder: Diffuse thickening of the bladder wall. Reproductive Organs: Enlarged prostate gland measuring 5.5 x 6.2 cm. Bowel: Diverticulosis without active diverticulitis. No bowel obstruction. Appendix: The appendix is not identified. There is no inflammatory process identified in the right lower quadrant to suggest appendicitis. Lymph nodes: No pelvic or retroperitoneal lymphadenopathy. Vasculature: Atherosclerosis of the aorta without aneurysm Peritoneum / Retroperitoneum: No ascites. No peritoneal implant. Bones: Compression fracture deformity of L1. This appears chronic. No destructive bone lesion. CT/Abdomen/Pelvis W IV Cont ONLY IMPRESSION: Circumferential thickening of the bladder wall which is underdistended with mildinflammatory changes. Underlying cystitis can not be excluded. Markedly enlarged prostate gland. No hydronephrosis or nephrolithiasis. Simple left renal cysts. Severe atrophy of the pancreas with prominent cystic lesion in the head of the pancreas measuring 2cm. This could reflect a side branch duct intraductal papillary mucinous neoplasm. Additional cystic structures are scattered through the pancreatic body. No ductal dilatation. Correlation with MRCP with and without contrast isrecommended. Reading Location: [facility] CC: Dr. Matilde Noguera MD; Dr. Kael Decker MD ~ Supervisor [employer] Room: Signed [facility]09-18-2025 NoteHNO ID: [id number] Author: NATHANAEL BLACK MD Service: ? Author Type: Physician Type: Progress Notes Filed: 02/22/2025 08:19 Note Text: Franklin Burton is a 79 year old male. Consultation was requested by Dr. Kyler Garcia for an opinion regarding GPA; my final assessment and recommendations will be communicated back to the requesting physician by way of shared medical record, or by letter via fax or US mail or telephone call. Evaluation Date: 02/03/2025 Chief Complaint: The patient is a 79-year-old male with GPA, ESRD on hemodialysis, and DM, presenting for evaluation of a possible GPA flare. HPI: History was obtained from the patient and from outside records. Franklin Burton is a 79-year-old male with a history of granulomatosis with polyangiitis (GPA), presenting for evaluation of worsening symptoms. Franklin was initially diagnosed with GPA in 2013 following a hospitalization at [facility]. Initial symptoms began in 2012 and included severe myalgias in the shoulders, thighs, and throughout the body, along with fatigue and low-grade fevers. He was initially diagnosed with polymyalgia rheumatica and treated with prednisone, which provided significant relief. However, symptoms recurred in 2013, leading to a diagnosis of GPA confirmed by lung and kidney biopsies showing granulomas and glomerulonephritis, respectively. During the 2013 hospitalization, he experienced pulmonary involvement, renal failure, neuropathy with numbness, tingling, dizziness, and pain, as well as significant sinonasal issues, including congestion, drainage, and epistaxis. He also suffered from severe hearing loss. He was treated with high-dose steroids (1 g Solu-Medrol daily for 3 days, followed by prednisone 80 mg daily) and a 6-month course of IV cyclophosphamide starting in January 2014, transitioning to azathioprine in July 2014, which was discontinued in October 2015. In 2015, he was hospitalized for avascular necrosis of the hip, requiring hip replacement surgery. He also experienced shortness of breath in August 2015, treated with IV steroids and a prednisone taper. He reports a second round of cyclophosphamide treatment around 2015, though this is not documented in available records. 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 He also has a history of heart failure and is currently on dialysis, which he began in January 2022 after transitioning from peritoneal dialysis due to peritonitis in February 2023. Currently, he reports worsening myalgias, particularly in the feet, arms, hands, and back, which are not relieved by Tylenol but are managed with Percocet. He also experiences neuropathic pain in the feet, managed with gabapentin 300 mg at bedtime. He reports worsening sinonasal symptoms, including sinus pressure, occasional sinus pain, and ear fullness with crackling and popping sounds, particularly in the left ear. He notes worsening hearing loss, stating he is almost deaf without hearing aids. He denies recent epistaxis, chest pain, dyspnea, hemoptysis, skin rashes, or eye pain, but reports occasional itchy and watery eyes. He has not been on prednisone for several years and is not currently taking azathioprine. He denies symptoms of sleep apnea, such as snoring or waking up gasping for breath, but reports restless legs and pelvic discomfort affecting sleep. He denies daytime somnolence. He has not had an echocardiogram in many years but reports a clear cardiac catheterization 3-4 years ago. He has not seen an ENT specialist in 3 years. Recent imaging includes a chest X-ray in November 2024 showing clear lungs and a brain MRI showing chronic ischemic changes without acute findings. ROS GENERAL: fatigue FEVER: none WEIGHT CHANGE: none HEAD: negative for, headache ENT: negative for, nasal crusting, epistaxis, bloody nasal drainage, ear pain, sore throat, difficulty swallowing, mouth lesions, voice changes, loud noisy breathing or stridor EYES: negative for , pain, diplopia GASTROINTESTINAL: negative for, abdominal pain URINARY: negative for, dysuria, hematuria MUSCULOSKELETAL: negative for, joint swelling NEUROLOGIC: negative for, focal weakness SKIN: negative for, rash PAST SURGICAL HISTORY: PAST SURGICAL HISTORY Procedure Laterality Date KNEE ARTHROSCOPY/SURGERY 05/19/1988 Left knee-St PERITONEAL DIALYSIS CURRENT MEDICATIONS: Current Outpatient Medications Medication Sig rOPINIRole (REQUIP) 0.25 mg tablet Take 0.25 mg by mouth daily at bedtime. atorvastatin (LIPITOR) 40 mg tablet Take 40 mg by mouth every evening. clopidogrel (PLAVIX) 75 mg tablet Take 75 mg by mouth once daily. gabapentin (NEURONTIN) 300 mg capsule Take 300 mg by mouth daily at bedtime. omeprazole (PRILOSEC) 40 mg capsule Take 40 mg by mouth once daily. tamsulosin (FLOMAX) 0.4 mg Take 0.8 mg by mouth once (more content not included)...[facility]09-16-2025 NoteHNO ID: [id number] Author: KYLER GARCIA MD Service: ? Author Type: Physician Type: Progress Notes Filed: 02/01/2025 08:25 Note Text: Opened by other provider[facility] History of Present illness Narrative* Kyler Garcia MD - 02/01/2025 8:25 AM EDT Opened by other provider [facility] NotePatient Outreach (INTMMN) FRANKLIN BURTON ([id number]) 1945 M Date Time Provider Department 02/01/25 KYLER GARCIA During your visit today, we recorded the following information about you: Kyler Garcia MD 02/01/2025 8:25 AM Signed Opened by other provider Allergies As of Date: 02/01/2025 Noted Allergy Reaction ASPIRIN 12/01/2022 14 - Other: See Comments Comments: Kidney issues SEASONAL ALLERGIES 09/17/2011 14 - Other: See Comments Comments: Sneezing, itchy and watery eyes Date Reviewed: 01/13/2025 Reviewed by: Kyler Garcia MD - Fully Assessed Visit Diagnosis: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 - benzocaine (AMERICAINE) 20 % oral spray Apply 2 sprays to affected area four times a day as needed. - CAPSAICIN TOP Apply 1 application to affected area two times a day. - carboxymethylcellulose (REFRESH) 0.5 % drop 1 drop as needed. - clopidogrel (PLAVIX) 75 mg tablet Take 75 mg by mouth once daily. - finasteride (PROSCAR) 5 mg tablet Take 5 mg by mouth once daily. - gabapentin (NEURONTIN) 300 mg capsule Take 300 mg by mouth daily at bedtime. - melatonin 5 mg tablet Take 5 mg by mouth daily at bedtime. - naloxone 4 mg/actuation nasal spray (NARCAN) Use 4 mg in the nose as directed. - omeprazole (PRILOSEC) 40 mg capsule Take 40 mg by mouth once daily. - tamsulosin (FLOMAX) 0.4 mg Take 0.8 mg by mouth once daily. - acetaminophen (TYLENOL) 500 mg tablet Take 500 mg by mouth every 6 hours as needed. - simethicone, chewable (MYLICON) 80 mg chewable tablet Take 80 mg by mouth every 6 hours as needed. - ciprofloxacin HCl (CIPRO) 500 mg tablet Take 1 tablet by mouth every 12 hours. - senna (SENOKOT) 8.6 mg tab Take 2 tablets by mouth once daily. - metoprolol tartrate, short acting, (LOPRESSOR) 25 mg tablet Take 1 tablet by mouth once daily. - oxyCODONE-acetaminophen (PERCOCET) 5-325 mg tablet Take 1 tablet by mouth every 8 hours as needed for pain for up to 30 days. TAKE 1 TABLET BY MOUTH EVERY 8 HOURS NEEDED FOR PAIN FOR 30 DAYS - mirtazapine (REMERON) 15 mg tablet Take 1 tablet by mouth daily at bedtime. - calcium carbonate (TUMS) 500 mg chew Take 2 tablets by mouth three times a day for 2 days. - azaTHIOprine (IMURAN) 50 mg tablet Take 50 mg by mouth once daily. - calcitriol (ROCALTROL) 0.5 mcg capsule Take 0.5 mcg by mouth every 48 hours. Problem List As Of Date 02/01/2025 Noted Resolved Elevated PSA [R97.20] 12/08/2012 Dysuria [R30.0] 12/08/2012 Frequency of urination [R35.0] 12/08/2012 Family history of prostate cancer [Z80.42] 12/08/2012 Hesitancy of micturition [R39.11] 12/08/2012 Left inguinal hernia [K40.90] 12/08/2012 Peritonitis (HCC) [K65.9] 03/01/2023 ESRD (end stage renal disease) (HCC) [N18.6] 03/01/2023 Peritoneal dialysis catheter in situ (HCC) [Z99*03/01/2023 Hypertension associated with stage 5 chronic ki*03/01/2023 History of granulomatosis with polyangiitis [Z8*03/01/2023 Periumbilical abdominal pain [R10.33] 03/01/2023 Peripheral polyneuropathy [G62.9] 03/01/2023 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*03/03/2023 Fever and chills [R50.9] 03/03/2023 Dialysis patient (HCC) [Z99.2] 03/03/2023 Dialysis-associated peritonitis (HCC) [T85.71XA]03/03/2023 Malnutrition of mild degree (HCC) [E44.1] 03/09/2023 Obesity, Class I, BMI 30-34.9 [E66.811] 03/10/2023 Encounter Status:Closed by KYLER GARCIA on 02/01/25[facility] 01-31-2025 Telephone encounter Note* Telephone Encounter - Loree Gaston - 01/31/2025 12:56 PM EDT Spoke with daughter to try to schedule appointment with palliaitive care. I explained we do virtualinitial consults and then possible [facility] when [facility] opens or do virtualbecause we do not have provider going to homes there. Daughter stated at this time she did not want to schedule but if she changes her mind she will call us [facility]09-15-2025 Miscellaneous Notes* Telephone Encounter - Loree Gaston - 01/31/2025 12:56 PM EDT Spoke with daughter to try to schedule appointment with palliaitive care. I explained we do virtualinitial consults and then possible [facility] when it opens or do virtualbecause we do not have provider going to homes there. Daughter stated at this time she did not want to schedule but if she changes her mind she will call us * Telephone Encounter - Joselito Patient Administrative SupervisorIan - 01/31/2025 11:45 AM EDT Referring provider, if any (patient's can self-refer): pcp Primary diagnosis or reason being seen: ESRD (end stage renal disease) (HCC) [N18.6] Chronic midline low back pain without sciatica [ Has patient been seen by inpatient provider? No Any recent notes pertaining to palliative care referral, please add here: noted for [place] [facility] Note * Telephone Encounter - Joselito Patient Administrative SupervisorIan Diamond - 01/31/2025 11:45 AM EDT Referring provider, if any (patient's can self-refer): pcp Primary diagnosis or reason being seen: ESRD (end stage renal disease) (HCC) [N18.6] Chronic midline low back pain without sciatica [ Has patient been seen by inpatient provider? No Any recent notes pertaining to palliative care referral, please add here: noted for [place] [facility]08-30-2025 Telephone encounter Note* Telephone Encounter - Daniel Staton LPN - 01/15/2025 10:01 AM EDT PATIENT NOTIFIED OF SAME. [facility]08-30-2025 Miscellaneous Notes* Telephone Encounter - Daniel Staton LPN - 01/15/2025 10:01 AM EDT PATIENT NOTIFIED OF SAME. * Telephone Encounter - Daniel Staton LPN - 01/15/2025 9:57 AM EDT ----- Message from Kyler Garcia MD sent at 01/14/2025 1:24 PM EDT ----- Kathia, could we please try to call and just let him know PSA is elevated but stable from prior and he should discuss with his urologist he sees out of system. I tried to give them a call but he was not able to come to the phone to discuss. Thank you! [facility] Telephone encounter Note * Telephone Encounter - Daniel Staton LPN - 01/15/2025 9:57 AM EDT ----- Message from Kyler Garcia MD sent at 01/14/2025 1:24 PM EDT ----- Hello, could we please try to call and just let him know PSA is elevated but stable from prior and he should discuss with his urologist he sees out of system. I tried to give them a call but he was not able to come to the phone to discuss. Thank you! [facility]08-[facility]25 NoteHNO ID: [id number] Author: KYLER GARCIA MD Service: ? Author Type: Physician Type: Progress Notes Filed: 01/14/2025 13:22 Note Text: Labs reviewed. A1c normal. Cholesterol levels wnl PSA elevated but stable from prior, seeing urology in a few days so will follow with their team for both PSA elevation as well as hematuria.[facility]08-29-2025 History of Present illness Narrative* Kyler Garcia MD - 01/14/2025 1:21 PM EDT Labs reviewed. A1c normal. Cholesterol levels wnl PSA elevated but stable from prior, seeing urology in a few days so will follow with their team forboth PSA elevation as well as hematuria. [facility]08[facility] NotePatient Outreach (FAMPWS) FRANKLIN BURTON ([id number]) 1945 M Date Time Provider Department 01/14/25 KYLER GARCIA During your visit today, we recorded the following information about you: Kyler Garcia MD 01/14/2025 1:22 PM Signed Labs reviewed. A1c normal. Cholesterol levels wnl PSA elevated but stable from prior, seeing urology in a few days so will follow with their team for both PSA elevation as well as hematuria. Allergies As of Date: 01/14/2025 Noted Allergy Reaction ASPIRIN 12/01/2022 14 - Other: See Comments Comments: Kidney issues SEASONAL ALLERGIES 09/17/2011 14 - Other: See Comments Comments: Sneezing, itchy and watery eyes Date Reviewed: 01/13/2025 Reviewed by: Kyler Garcia MD - Fully Assessed Prescriptions as of 01/14/2025 - atorvastatin (LIPITOR) 40 mg tablet Take 40 mg by mouth every evening. - benzocaine (AMERICAINE) 20 % oral spray Apply 2 sprays to affected area four times a day as needed. - CAPSAICIN TOP Apply 1 application to affected area two times a day. - carboxymethylcellulose (REFRESH) 0.5 % drop 1 drop as needed. - clopidogrel (PLAVIX) 75 mg tablet Take 75 mg by mouth once daily. - finasteride (PROSCAR) 5 mg tablet Take 5 mg by mouth once daily. - gabapentin (NEURONTIN) 300 mg capsule Take 300 mg by mouth daily at bedtime. - melatonin 5 mg tablet Take 5 mg by mouth daily at bedtime. - naloxone 4 mg/actuation nasal spray (NARCAN) Use 4 mg in the nose as directed. - omeprazole (PRILOSEC) 40 mg capsule Take 40 mg by mouth once daily. - tamsulosin (FLOMAX) 0.4 mg Take 0.8 mg by mouth once daily. - acetaminophen (TYLENOL) 500 mg tablet Take 500 mg by mouth every 6 hours as needed. - simethicone, chewable (MYLICON) 80 mg chewable tablet Take 80 mg by mouth every 6 hours as needed. - ciprofloxacin HCl (CIPRO) 500 mg tablet Take 1 tablet by mouth every 12 hours. - senna (SENOKOT) 8.6 mg tab Take 2 tablets by mouth once daily. - metoprolol tartrate, short acting, (LOPRESSOR) 25 mg tablet Take 1 tablet by mouth once daily. - oxyCODONE-acetaminophen (PERCOCET) 5-325 mg tablet Take 1 tablet by mouth every 8 hours as needed for pain for up to 30 days. TAKE 1 TABLET BY MOUTH EVERY 8 HOURS NEEDED FOR PAIN FOR 30 DAYS - mirtazapine (REMERON) 15 mg tablet Take 1 tablet by mouth daily at bedtime. - calcium carbonate (TUMS) 500 mg chew Take 2 tablets by mouth three times a day for 2 days. - azaTHIOprine (IMURAN) 50 mg tablet Take 50 mg by mouth once daily. - calcitriol (ROCALTROL) 0.5 mcg capsule Take 0.5 mcg by mouth every 48 hours. Problem List As Of Date 01/14/2025 Noted Resolved Elevated PSA [R97.20] 12/08/2012 Dysuria [R30.0] 12/08/2012 Frequency of urination [R35.0] 12/08/2012 Family history of prostate cancer [Z80.42] 12/08/2012 Hesitancy of micturition [R39.11] 12/08/2012 Left inguinal hernia [K40.90] 12/08/2012 Peritonitis (HCC) [K65.9] 03/01/2023 ESRD (end stage renal disease) (HCC) [N18.6] 03/01/2023 Peritoneal dialysis catheter in situ (HCC) [Z99*03/01/2023 Hypertension associated with stage 5 chronic ki*03/01/2023 History of granulomatosis with polyangiitis [Z8*03/01/2023 Periumbilical abdominal pain [R10.33] 03/01/2023 Peripheral polyneuropathy [G62.9] 03/01/2023 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*03/03/2023 Fever and chills [R50.9] 03/03/2023 Dialysis patient (HCC) [Z99.2] 03/03/2023 Dialysis-associated peritonitis (HCC) [T85.71XA]03/03/2023 Malnutrition of mild degree (HCC) [E44.1] 03/09/2023 Obesity, Class I, BMI 30-34.9 [E66.811] 03/10/2023 Encounter Status:Closed by KYLER GARCIA on 01/14/25[facility] 01-13-2025 Instructions* Patient Instructions* Kyler Garcia MD - 01/13/2025 12:37 PM EDT Please get lab work and urine studies Please see palliative medicine Please see ENT and get a hearing test documented [facility]08[facility]25 NoteHNO ID: [id number] Author: KYLER GARCIA MD Service: ? Author Type: Physician Type: Progress Notes Filed: 01/14/2025 15:39 Note Text: Family Medicine OUTPATIENT VISIT January 13, 2025 CC: Establish care HPI: 79 year old male patient with a history of T2DM not on meds. Peripheral neuropathy on gabapetin 300 Insomnia on melatonin, mirtazapine HTN on metoprolol 25 BID HLD on atorvastatin 40 On plavix 75 For unclear reasons, denies hx of PAD, CAD, past OK, past strokes Hernia GERD on omprazole and simethicone Chronic pain on percocet ESRD on iHD MWF, follows at [facility] and sees check out cashier there. BPH on finasteride, flomax, follows with urology ROYAL RLS GPA on azothioprine HFpEF (EF 50% 12/10) Chronic back pain, on percet. Elevated PSA Obesity Abnormal parathyroid level Encephalopathy, likely multifactorial with admission for this 12/10 and possibly 2/2 gabapentin and lyrica being taken not as prescribed Chronic debility Metabolic bone disease, last dexa 2017 osteopenia Recent admission in October for AMS, debility ED visit 01/05 for UTI started on CIPRO for morganella UTI, cipro susceptible, notably was having hematuria with this event. He does see urology Dr. Sarath Decker. Seeing them January 18 out of system. It is not totally clear why he is on plavix. Has not had cardiac stents. Denies his anxiety is to the degree it is impacting his life. He had a CPAP machine but gave it to his son in law who he felt had worse sleep apnea. He is on Percocet for chronic back pain. He has been on it for 15 years. He is also using it to treat his ROYAL and insomnia, saying he does not need CPAP as he just takes a percocet and I go right to sleep. No issues with falls or ambulation around his home. Was having home PT after hospital stay but says they discharged him as he was doing well. Unclear why he stopped taking calcitriol. He is not sure what the management plan is for his metabolic bone disease. His UTI symptoms have resolved. Has a few days left of Cipro. Transplant had been brought up but he says that he is it an option but he does not want to pursue it due to age. He has a POA. would want to be revived if he arrested unless on slot floor attendant life support. Review of Systems PAIN ASSESSMENT: Chronic back pain GENERAL: No weight loss, or fevers HEENT: Negative for frequent or significant headaches RESPIRATORY: Negative for cough, wheezing, shortness of breath CARDIOVASCULAR: Negative for chest pain, palpitations, PND or orthopnea GI: No nausea, vomiting, or diarrhea or abdominal pain. No TX bleeding or melana : No history of dysuria, frequency, urgency, or change in urine appearance NEURO: No history of headaches, numbness, weakness, or changes to vision or hearing Health maintenance: Dilated Retinal Exam Never done Diabetic Foot Exam Never done Shingrix Vaccine(1 of 2) Never done Medicare Annual Wellness Visit Never done RSV Vaccine(1 - 1-dose 75+ series) Never done Hepatitis B Vaccine(8 of 8 - Risk Dialysis 4-dose series) due on 12/31/2023 Advance Directive Discussion Never done Allergies: ALLERGIES Allergen Reactions Aspirin Other: See Comments Kidney issues Seasonal Allergies Other: See Comments Sneezing, itchy and watery eyes Medications: atorvastatin (LIPITOR) 40 mg tablet Take 40 mg by mouth every evening. benzocaine (AMERICAINE) 20 % oral spray Apply 2 sprays to affected area four times a day as needed. CAPSAICIN TOP Apply 1 application to affected area two times a day. carboxymethylcellulose (REFRESH) 0.5 % drop 1 drop as needed. clopidogrel (PLAVIX) 75 mg tablet Take 75 mg by mouth once daily. finasteride (PROSCAR) 5 mg tablet Take 5 mg by mouth once daily. gabapentin (NEURONTIN) 300 mg capsule Take 300 mg by mouth daily at bedtime. melatonin 5 mg tablet Take 5 mg by mouth daily at bedtime. naloxone 4 mg/actuation nasal spray (NARCAN) Use 4 mg in the nose as directed. omeprazole (PRILOSEC) 40 mg capsule Take 40 mg by mouth once daily. tamsulosin (FLOMAX) 0.4 mg Take 0.8 mg by mouth once daily. acetaminophen (TYLENOL) 500 mg tablet Take 500 mg by mouth every 6 hours as needed. simethicone, chewable (MYLICON) 80 mg chewable tablet Take 80 mg by mouth every 6 hours as needed. ciprofloxacin HCl (CIPRO) 500 mg tablet Take 1 tablet by mouth every 12 hours. mirtazapine (REMERON) 15 mg tablet Take 1 tablet by mouth daily at bedtime. calcium carbonate (TUMS) 500 mg chew Take 2 tablets by mouth three times a day for 2 days. azaTHIOprine (IMURAN) 50 mg tablet Take 50 mg by mouth once daily. senna (SENOKOT) 8.6 mg tab Take 2 tablets by mouth once daily. metoprolol tartrate, short acting, (LOPRESSOR) 25 mg tablet Take 1 tablet by mouth once daily. oxyCODONE-acetaminophen (PERCOCET) 5-325 mg tablet Take 1 tablet by mouth every 8 hours as needed for pain for up to 30 days. TAKE 1 TABLET BY MOUTH EVERY 8 HOURS NE (more content not included)...[facility]08-28-2025 History of Present illness Narrative* Kyler Garcia MD - 01/13/2025 10:48 AM EDT Images from the original note were not included. Family Medicine OUTPATIENT VISIT January 13, 2025 CC: Establish care HPI: 79 year old male patient with a history of T2DM not on meds. Peripheral neuropathy on gabapetin 300 Insomnia on melatonin, mirtazapine HTN on metoprolol 25 BID HLD on atorvastatin 40 On plavix 75 For unclear reasons, denies hx of PAD, CAD, past OK, past strokes Hernia GERD on omprazole and simethicone Chronic pain on percocet ESRD on iHD MWF, follows at [facility] and sees check out cashier there. BPH on finasteride, flomax, follows with urology ROYAL RLS GPA on azothioprine HFpEF (EF 50% 12/10) Chronic back pain, on percet. Elevated PSA Obesity Abnormal parathyroid level Encephalopathy, likely multifactorial with admission for this 12/10 and possibly 2/2 gabapentin and lyrica being taken not as prescribed Chronic debility Metabolic bone disease, last dexa 2017 osteopenia Recent admission in October for AMS, debility ED visit 01/05 for UTI started on CIPRO for morganella UTI, cipro susceptible, notably was having hematuria with this event. He does see urology Dr. Sarath Decker. Seeing them January 18 out of system. It is not totally clear why he is on plavix. Has not had cardiac stents. Denies his anxiety is to the degree it is impacting his life. He had a CPAP machine but gave it to his son in law who he felt had worse sleep apnea. He is on Percocet for chronic back pain. He has been on it for 15 years. He is also using it to treat his ROYLA and insomnia, saying he does not need CPAP as he just takes a percocet and I go right tosleep. No issues with falls or ambulation around his home. Was having home PT after hospital stay but says they discharged him as he was doing well. Unclear why he stopped taking calcitriol. He is not sure what the management plan is for his metabolic bone disease. His UTI symptoms have resolved. Has a few days left of Cipro. Transplant had been brought up but he says that he is it an option but he does not want to pursue it due to age. He has a POA. would want to be revived if he arrested unless on slot floor attendant life support. Review of Systems PAIN ASSESSMENT: Chronic back pain GENERAL: No weight loss, or fevers HEENT: Negative for frequent or significant headaches RESPIRATORY: Negative for cough, wheezing, shortness of breath CARDIOVASCULAR: Negative for chest pain, palpitations, PND or orthopnea GI: No nausea, vomiting, or diarrhea or abdominal pain. No TX bleeding or melana : No history of dysuria, frequency, urgency, or change in urine appearance NEURO: No history of headaches, numbness, weakness, or changes to vision or hearing Health maintenance: Dilated Retinal Exam Never done Diabetic Foot Exam Never done Shingrix Vaccine(1 of 2) Never done Medicare Annual Wellness Visit Never done RSV Vaccine(1 - 1-dose 75+ series) Never done Hepatitis B Vaccine(8 of 8 - Risk Dialysis 4-dose series) due on 12/31/2023 Advance Directive Discussion Never done Allergies: ALLERGIES Allergen Reactions Aspirin Other: See Comments Kidney issues Seasonal Allergies Other: See Comments Sneezing, itchy and watery eyes Medications: atorvastatin (LIPITOR) 40 mg tablet Take 40 mg by mouth every evening. benzocaine (AMERICAINE) 20 % oral spray Apply 2 sprays to affected area four times a day as needed. CAPSAICIN TOP Apply 1 application to affected area two times a day. carboxymethylcellulose (REFRESH) 0.5 % drop 1 drop as needed. clopidogrel (PLAVIX) 75 mg tablet Take 75 mg by mouth once daily. finasteride (PROSCAR) 5 mg tablet Take 5 mg by mouth once daily. gabapentin (NEURONTIN) 300 mg capsule Take 300 mg by mouth daily at bedtime. melatonin 5 mg tablet Take 5 mg by mouth daily at bedtime. naloxone 4 mg/actuation nasal spray (NARCAN) Use 4 mg in the nose as directed. omeprazole (PRILOSEC) 40 mg capsule Take 40 mg by mouth once daily. tamsulosin (FLOMAX) 0.4 mg Take 0.8 mg by mouth once daily. acetaminophen (TYLENOL) 500 mg tablet Take 500 mg by mouth every 6 hours as needed. simethicone, chewable (MYLICON) 80 mg chewable tablet Take 80 mg by mouth every 6 hours as needed. ciprofloxacin HCl (CIPRO) 500 mg tablet Take 1 tablet by mouth every 12 hours. mirtazapine (REMERON) 15 mg tablet Take 1 tablet by mouth daily at bedtime. calcium carbonate (TUMS) 500 mg chew Take 2 tablets by mouth three times a day for 2 days. azaTHIOprine (IMURAN) 50 mg tablet Take 50 mg by mouth once daily. senna (SENOKOT) 8.6 mg tab Take 2 tablets by mouth once daily. metoprolol tartrate, short acting, (LOPRESSOR) 25 mg tablet Take 1 tablet by mouth once daily. oxyCODONE-acetaminophen (PERCOCET) 5-325 mg tablet Take 1 tablet by mouth every 8 hours as needed for pain for up to 30 days. TAKE 1 TABLET BY MOUTH EVERY 8 HOURS NEEDED FOR PAIN FOR 30 DAYS calcitriol (ROCALTROL) 0.5 mcg capsule Take 0.5 mcg by mouth every 48 hours. (Patient not taking: Reported on 01/13/2025) Past Medical History: No past medical history on file. Social History: SOCIAL HISTORY[1] Family History: Family History Problem Relation Age of Onset Prostate Cancer Father Heart Mother Diabetes Maternal Grandmother Diabetes Paternal Grandmother BP 106/60 Pulse 79 Temp 37.1 C (98.8 F) (Temporal) Resp 16 Ht 160 cm (5' 3) Wt 98.2 kg (216 lb 6.4 oz) SpO2 96% BMI 38.33 kg/m General: Awake, alert, not in acute distress SET DECORATOR: Answering questions appropriately. No abnormal posturing or positioning. Speech is normal. Strength grossly intact. RESP: Clear lungs bilateral with good air entry, No increased work of breathing CVS: RRR, No murmur. Pulses 2+. GI: Abdomen is soft, distended, non tender. No masses or hepatomegaly appreciated. Skin/Other: No rashes or lesions. HEENT: pupils equal Extremities: No peripheral edema, swelling or erythema of lower extremities. Fistula with bruit Labs: Reviewed the following: Pertinent labs as outlined above Imaging: Reviewed the following: Reviewed recent pertinent imaging Assessment/Plan: ASSESSMENT/PLAN: 1. Encounter to establish care - ICD9: V65.8, ICD10: Z76.89 (primary diagnosis) Establishing care, reviewed extensive medical history with patient - CLOPIDOGREL 75 MG TABLET- it is not clear why patient is on plavix. I asked him to speak to his past doctors including check out cashier to try to determine why he was prescribed this. Does not appear he has had an OK, stenting, PAD. I cannot find in the chart why he is prescribed this. 2. Screening for depression - ICD9: V79.0, ICD10: Z13.31 He endorses symptoms but declines treatment. No TSH/SI - DEPRESSION SCREENING 3. Encounter for screening examination for other mental health and behavioral disorders - ICD9: V79.8, ICD10: Z13.39 He endorses symptoms but declines treatment. No TSH/SI - ANXIETY SCREENING 4. Gross hematuria - ICD9: 599.71, ICD10: R31.0 Hematuria with UTI during ED visit. He has urology visit upcoming. Advised he needs to discuss thiswith urology. 5. ESRD (end stage renal disease) (HCC) - ICD9: 585.6, ICD10: N18.6 ESRD on iHD, follows with outside system check out cashier. C/b metabolic bone disease, unclear if being treated. I asked if he can please get me the contact information for his check out cashier so that we can discusshis care. It appears he is transplant eligible but declining to pursue at this time. He also appears medically frail, with recurrent infections and hospitalization for AMS recently with course c/b deconditioning. Will have him establish care with pall med given medical frailty and ESRD on iHD with patient electing to not pursue transplant. He wants to be full code at this time - CONSULT TO PALLIATIVE CARE 6. 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 (HCC) - ICD9: 250.40, 403.91, 585.5, ICD10: E11.22, I12.0, N18.5 - Controlled - Recommend home blood pressure monitoring, to bring results to next visit - Encouraged sodium restriction, DASH or Mediterranean diet - Recommend regular aerobic exercise Continue metoprolol 7. Encounter for health-related screening - ICD9: V82.9, ICD10: Z13.9 Due for screen Continue atorvastatin 40 - LIPID PANEL, NONFASTING - HEMOGLOBIN A1C - PSA/PROSTATE SPECIFIC ANTIGEN SCREENING 8. Chronic heart failure, unspecified heart failure type (HCC) - ICD9: 428.9, ICD10: I50.9 - due for repeat echo, has not had an echo for over 10 years. - PERFLUTREN LIPID MICROSPHERES 1.1 MG/ML INJECTION IN NS 10 ML - SODIUM CHLORIDE 0.9 % (FLUSH) INJECTION SYRINGE -echo 9. ROYAL (obstructive sleep apnea) - ICD9: 327.23, ICD10: G47.33 ROYAL, uncontrolled Gave away his CPAP machine Treating his ROYAL by taking opiates to help him sleep. I discussed with him why this is a bad idea, and why ROYAL should be treated with CPAP. - POLYSOMNOGRAM (PSG) 10. Heart failure with preserved ejection fraction, unspecified HF chronicity (HCC) - ICD9: 428.9, ICD10: I50.30 As above 11. Chronic midline low back pain without sciatica - ICD9: 724.2, 338.29, ICD10: M54.50, G89.29 Chronic back pain that has been managed with percocet for 15 years per patient. Discussed ideally we would use multimodal pain regimen, PT, try to avoid opiates if able.Patient refuses PT. C/f potential for opiate abuse as he is using opiates to help him with sleep, was taking gabapentinand pregabalin not as prescribed. He though is limited in pain regimen in regards to NSAIDs due to dialysis. Referring to [facility] for early involvement in his care iso chronic disease, but would also like assistance with management of his chronic pain. Ideally would like to avoid or minimize perocet use ifpossible, though this may not be possible and given he has a somewhat limited overall life expectancy if he does not want to pursue transplant, opiates may be not entirely unreasonable. - NALOXONE 4 MG/ACTUATION NASAL SPRAY - CONSULT TO PALLIATIVE CARE - OXYCODONE-ACETAMINOPHEN 5 MG-325 MG TABLET - TOXICOLOGY SCREEN, ROUTINE URINE 12. Chronic illness - ICD9: 799.9, ICD10: R69 - CONSULT TO PALLIATIVE CARE 13. Bilateral hearing loss, unspecified hearing loss type - ICD9: 389.9, ICD10: H91.93 chronic - HEARING TEST/AUDIOGRAM - CONSULT TO ENT 14. Encounter for screening for malignant neoplasm of prostate - ICD9: V76.44, ICD10: Z12.5 Chronically elevated, follows with urology - PSA/PROSTATE SPECIFIC ANTIGEN SCREENING 15. Encounter for screening for cardiovascular disorders - ICD9: V81.2, ICD10: Z13.6 As above - ECHO 16. Hyperlipidemia, unspecified hyperlipidemia type - ICD9: 272.4, ICD10: E78.5 As above 17. Benign prostatic hyperplasia without lower urinary tract symptoms - ICD9: 600.00, ICD10: N40.0 controlled - FINASTERIDE 5 MG TABLET - TAMSULOSIN 0.4 MG CAPSULE 18. Neuropathy - ICD9: 355.9, ICD10: G62.9 controlled - GABAPENTIN 300 MG CAPSULE 19. Chronic insomnia - ICD9: 780.52, ICD10: F51.04 controlled - MELATONIN 5 MG TABLET 20. Gastroesophageal reflux disease, unspecified whether esophagitis present - ICD9: 530.81, ICD10:K21.9 controlled - OMEPRAZOLE 40 MG CAPSULE,DELAYED RELEASE - SIMETHICONE 80 MG CHEWABLE TABLET 21. Recurrent UTI (urinary tract infection) - ICD9: 599.0, ICD10: N39.0 Symptoms improved Finish course of cipro - CIPROFLOXACIN 500 MG TABLET 22. Type 2 diabetes mellitus with diabetic neuropathy, without long-term current use of insulin (HCC) - ICD9: 250.60, 357.2, ICD10: E11.40 Due for lab - HEMOGLOBIN A1C 23. Elevated PSA - ICD9: 790.93, ICD10: R97.20 As above - PSA/PROSTATE SPECIFIC ANTIGEN SCREENING Kyler Garcia Remainder of plan including medications to be continued as prior to this visit unless noted above. I will reach out if lab testing or imaging is abnormal and requires a change in the plan discussed above. Otherwise, we can review results at follow up. I discussed this with the patient and they arein agreement. Discussed with patient the importance of continuity of care. Follow up appointments as scheduled below. We discussed returning sooner if symptoms should worsen or not improve as expected as discussed during our appointment. Kyler Garcia MD Internal Medicine and Pediatrics [facility] 01/14/2025 3:28 PM Portions of note generated prior to visit. History of illness, past medical and surgical history, family and social history, medications, allergies, labs and imaging reviewed during visit and are updated as appropriate following visit. I spent 90 minutes in the visit, with more than 50% of the total [id number] time of the visit in counseling / coordination of care. Future Appointments Date Time Provider Department Center 02/03/2025 9:00 AM Nathanael Black MD [facility] 02/17/2025 11:20 AM Kyler Garcia MD [facility] [1] Social History Tobacco Use Smoking status: Former Current packs/day: 0.00 Types: Cigarettes Quit date: 05/19/1981 Years since quittin.6 Tobacco comments: Quit about 30 years ago Substance Use Topics Alcohol use: No Drug use: [facility] Medical Records Department [address] [place] [address] Emergency Department Summary 01/05/25 MR#: [id number] Acct: [id number] Name: JOSEPHINEFRANKLIN SHUKLA Rep #:[id number] : 1945 79 From: Vinay Gomez MD PCP: Kyler Garcia MD Status:REG ER Location: ED HPI History of Present Illness Chief Complaint: Complaint Informant: patient and spouse/S.O. Pain Onset: Weeks Context: Gradual Onset Timing: Intermittent Current Severity: Mild Maximum Severity: Mild Narrative Narrative: 79-year-old male history of end-stage renal disease dialysis. Dialyzed Friday was dialyzed a full run this morning. History of anemia, CHF and Zach's. States that about a month ago he started small amount of blood in his urine. It was intermittent. He has had it over the last 3 days each day. Small clots. He is able to urinate. Said he is having a normal stream. Feels like he is emptying his bladder. He is on no blood thinners not even aspirin. He does see urologist Dr. Sarath Decker. Denies any history of bladder cancer. History of prior TURP procedure. Prior similar symptoms: No Recent Illness/[facility]: [facility] Medical History Dialysis patient Wears hearing aid [...] Chest pain Abnormal stress echo Home Medications ?Medication ?Instructions ?Recorded ?Last Taken ?Type handicap placard #1 ea 08/29/22 Unknown Rx handicap placard #1 ea 03/12/23 Unknown Rx triamcinolone acetonide 0.1 % 1 applic topical DAILY P RN 09/09/23 Unknown Rx topical ointment rash/itching #15 grams mirtazapine 15 mg tablet 15 mg PO QHS #90 tabs Unknown Rx omeprazole 40 mg capsule,delayed 40 mg PO DAILY stomac h #90 caps 07/26/24 Unknown Rx release metoprolol tartrate 25 mg tablet 25 mg PO DAILY BP #90 tabs 09/13/24 Unknown Rx melatonin 3 mg capsule 3 mg PO HS PRN sleep #30 cap s 10/14/24 Unknown Rx magna life topical 10/15/24 Unknown His tory tamsulosin 0.4 mg capsule 0.8 mg (2 x 0.4 mg) PO QDAY #60 11/15/24 Unknown Rx caps gabapentin 100 mg capsule 300 mg PO QHS 12/07/24 Unkno wn History ropinirole 0.25 mg tablet 0.25 mg PO QHS #30 tabs 11/17 07/13 Unknown Rx ciprofloxacin HCl 500 mg tablet 500 mg PO BID 10 days #20 tabs 01/05/25 Unknown Rx (Cipro) Allergy/AdvReac Type Severity Reaction Status Date / Time finasteride Allergy Intermediate mastodynia Verified 01/05/25 12:19 aspirin AdvReac Severe cannot Verified 01/05/25 12:19 take d/t Zach's Vasculitis Family History Mother [...] house 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 Intermittent gross hematuria. No dysuria. No fever. Able to urinate. Constitutional Constitutional ED: Denies chills or fever(s) Eyes Eyes: Denies blurry vision ENT ENT ED: Denies ear pain Cardiovascular Cardiovascular: Denies chest pain Respiratory/Chest Respiratory/Chest: Denies cough or dyspnea Gastrointestinal Gastrointestinal: Denies abdominal pain, diarrhea, nausea or vomiting Genitourinary Genitourinary ED: Reports hematuria; Denies dysuria or urinary frequency Musculoskeletal Musculoskeletal: Denies arthralgias Integumentary Denies abscess Neurologic Neurologic: Denies headache(s) Psychiatric Psychiatric: Denies anxiety Endocrine Endocrinology: Denies polydipsia, polyphagia or polyuria Hematologic/Lymphatic Hematologic/Lymphatic: Denies easy bleeding, easy bruising or lymphadenopathy Allergic/Immunologic Allergic/Immunologic ED: Denies mouth swelling, tongue swelling or urticaria EXAM Physical Exam Narrative Exam Narrative: Well-appearing 79-year-old male sitting upright in bed. present in room. Vital signs stable afebrile. No acute distress. He walked from triage into [facility]. H EENT exam pupils round reactive light. Moist mucous membranes. Neck nontender no JVD. Lungs clear to auscultation bilaterally. Heart regular rhythm rate about 85 no murmur. Chest wall and ribs nontender. Abdomen soft, nontender, nondistended, normal bowel sounds without peritoneal signs. No suprapubic tenderness. Moving all 4 extremities. Normal strength. Back nontender. Neurologically he is awake and alert. Answering questions followingcommands. Const Vital Signs: 01/05/25 12:17 Temperature 98.5 F Temperature Source Oral Pulse Rate 86 Respiratory Rate 16 Blood Pressure 145/76 H Blood Pressure Mean 99 Pulse Ox 94 Oxygen Delivery Method Room Air Positive well nourished and well developed; Negative for cachectic, contracturesor unkempt General Appearance ED: well developed and NAD; Negative for unkempt, cachectic, contractures or pallor Nutritional Appearance: Negative for cachectic HEENT Reports moist mucous membranes normocephalic and atraumatic Eyes PERRL and EOMs intact bilaterally Neck no lymphadenopathy, supple and no JVD General: Negative for tenderness Resp normal respiratory effort and clear to auscultation bilaterally Cardio regular rate, regular rhythm, S1 normal heart sound, S2 normal heart sound and no murmurs GI non-tender, non-distended and no masses Inspection: Negative for abdominal distention Auscultation: normoactive bowel sounds Palpation: soft; Negative for tender or guarding no CVA tenderness Back/Spine no CVA tenderness Extremity normal to inspection Extremity Narrative: Dialysis shunt left upper arm good thrill. General Extremety ED: Negative for edema, pulses abnormal or tenderness General Extremity: Negative for edema or pulses abnormal Neuro oriented x3, CN's II-XII intact bilaterally, moves all extremities and no focal motor deficits Sensorium / Orientation: alert, oriented to person, oriented to place and oriented to time Motor Exam: strength 5/5 throughout Psych mental status grossly normal Appearance: Negative for unkempt Thought Process: normal thought process Thought Content: normal thought content Skin General Skin Exam: Negative for jaundice or pallor Lesions: no lesions Rashes: no rashes MDM MDM MDM Narrative Medical decision making narrative: 71-year-old male with history of dialysis still makes urine. Complaining of intermittent gross hematuria for months consistent the last 3 days. UA OB obtained to evaluate for possible UTI. He is on no blood thinners. CBC and chemistry be obtained. Will check a bladder scan but he states he is urinating fine and has a good stream. Repeat exam at 2:45 PM patient doing well. No further complaints. Again stateshe is urinating and able to urinate. Does not want a catheter at this time. Hedoes not need one at this time. He will follow-up with his urologist Dr. Romero. He will be started on antibiotics Cipro 500 twice daily for 10 days first dose given here. History & Record Review Discussion w/independent historian: Patient and Family Additional record(s) reviewed:: Prior outpatient record, Prior ED visit and Prior labs Lab Data Attestation: I reviewed the patient's lab results. Lab results narrative: CBC shows a white count 3.6. H&H of 11.0 and 33. Platelets 136. Electrolytes show a gap at 10. BUN 9 creatinine 2.63 has got a history of Renalfailure on dialysis. CBC is consistent with prior. Glucose 114. Urinalysis shows 150 occult blood. No nitrates. 500 leukocyte esterase. 25-50red cells. Greater than 100 white cells. 1+ bacteria. Urine culture will be sent. Is to be treated as a UTI. Patient be started on oral antibiotics. Labs: Laboratory Results - last 24 hr 01/05/25 01/05/25 12:35 13:45 WBC 3.6 L RBC 3.53 L Hgb 11.0 L Hct 33.6 L MCV 95.2 H MCH 31.2 MCHC 32.7 RDW Std Deviation 49.5 H RDW Coeff of Misael 14.2 Plt Count 136 L MPV 9.2 Immature Gran % (Auto) 0.300 Neut % (Auto) 68.9 Lymph % (Auto) 17.2 L [place] % (Auto) 9.7 Eos % (Auto) 2.8 Baso % (Auto) 1.1 H Absolute Neuts (auto) 2.5 Absolute Lymphs (auto) 0.62 L Nucleated RBC % 0 Sodium 139 Potassium 3.8 Chloride 99 Carbon Dioxide 30.4 Anion Gap 10 BUN 9 Creatinine 2.63 H Est GFR (MDRD) Non-Af 24 L BUN/Creatinine Ratio 3.3 L Glucose 114 H Calcium 9.0 Urine Color Yellow Urine Clarity Cloudy Urine pH 8.0 Ur Specific [place] 1.010 Urine Protein 100 H Urine Glucose (UA) 50 H Urine Ketones Negative Urine Occult Blood 150 H Urine Nitrite Negative Urine Bilirubin Negative Urine Urobilinogen Normal Ur Leukocyte Esterase 500 H Urine RBC 25-50 SEEN Urine WBC >100 SEEN Ur Squamous Epith Cells 0-5 SEEN Urine Bacteria 1+ Urine Mucus 0 SEEN Discharge Plan Triage Chief Complaint: Complaint ED Provider: Vinay Gomez Dx/Rx/DC Orders Clinical Impression: Hematuria, Urinary tract infection, History of end stage renal disease Instructions: ED Hematuria, ED Urinary Tract Infections in Men Prescriptions: New ciprofloxacin HCl [Cipro] 500 mg tablet 500 mg PO BID 10 Days Qty: 20 0RF No Action (DME) handicap placard See Rx Instructions .ROUTE .MEDSUPPLY Qty: 1 0RF Rx Instructions: Length of time: 5 years Diagnosis: Impaired physical mobility z74.09 (DME) handicap placard See Rx Instructions .ROUTE .MEDSUPPLY Qty: 1 0RF Rx Instructions: Length of time: 5 years Diagnosis: Impaired physical mobility z74.09 triamcinolone acetonide 0.1 % ointment 1 applic topical DAILY PRN (Reason: rash/itching) Qty: 15 0RF mirtazapine 15 mg tablet 15 mg PO QHS Qty: 90 1RF gabapentin 100 mg capsule 300 mg PO QHS ropinirole 0.25 mg tablet 0.25 mg PO QHS Qty: 30 0RF magna life topical Rx Instructions: magna life cream topically to bilateral feet every evening omeprazole 40 mg capsule,delayed release(DR/EC) 40 mg PO DAILY Qty: 90 1RF metoprolol tartrate 25 mg tablet 25 mg PO DAILY Qty: 90 1RF melatonin 3 mg capsule 3 mg PO HS PRN (Reason: sleep) Qty: 30 0RF tamsulosin 0.4 mg capsule 0.8 mg PO QDAY Qty: 60 1RF Primary Care Provider: Kyler Garcia Referrals: Matilde Noguera MD [Med Staff - Active Staff] - Kael Decker MD [Med Staff - Active Staff] - As soon as possible Activity Restrictions/Additional Instructions: You have a urinary tract infection. A urine culture will be sent. Will start you on antibiotics Cipro 1 pill twice a day for 10 days. Call and follow-up with your urologist as soon as possible. If the blood does not clear up sometimes will consider doing a cystoscopy whether go on your bladder and look with the scope. Plenty of fluids to prevent clotting. Urinate frequently. If the bleeding getsa lot worse or you are unable to urinate return we may have to place a Osorio catheter. We do not have to at this time. Print Language: Ukrainian Disposition Disposition: Home, Self Care What to do if you have Problems For any increased pain, shortness of breath, bleeding, nausea or vomiting, chestpain, or any unexpected problems, contact your Primary Care Provider. Call [facility] ([phone]) or report tothe closest Emergency Room. Call 911 if necessary. 01/05/25 0932 Cosigner Signature (if applicable): CC: Kyler Garcia MD ~ Signed [facility]08-20-2025 Discharge summary Author Vinay Gomez [facility] Note Date/Time January 05, 2025 2: 54pm [facility] Medical Records Department [address] [place] [address] Emergency Department Summary 01/05/25 MR#: [id number] Acct: [id number] Name: JOSEPHINEFRANKLIN Jin Rep #:[id number] : 1945 79 From: Vinay Gomez MD PCP: Kyler Garcia MD Status:REG ER Location: ED HPI History of Present Illness Chief Complaint: Complaint Informant: patient and spouse/S.O. Pain Onset: Weeks Context: Gradual Onset Timing: Intermittent Current Severity: Mild Maximum Severity: Mild Narrative Narrative: 79-year-old male history of end-stage renal disease dialysis. Dialyzed Friday was dialyzed a full run this morning. History of anemia, CHF and Zach's. States that about a month ago he started small amount of blood in his urine. It was intermittent. He has had it over the last 3 days each day. Small clots. He is able to urinate. Said he is having a normal stream. Feels like he is emptying his bladder. He is on no blood thinners not even aspirin. He does see urologist Dr. Sarath Decker. Denies any history of bladder cancer. History of prior TURP procedure. Prior similar symptoms: No Recent Illness/Hospitalization: Yes [facility] Medical History Dialysis patient Wears hearing aid [...] Chest pain Abnormal stress echo Home Medications ?Medication ?Instructions ?Recorded ?Last Taken ?Type handicap placard #1 ea 08/29/22 Unknown Rx handicap placard #1 ea 03/12/23 Unknown Rx triamcinolone acetonide 0.1 % 1 applic topical DAILY P RN 09/09/23 Unknown Rx topical ointment rash/itching #15 grams mirtazapine 15 mg tablet 15 mg PO QHS #90 tabs Unknown Rx omeprazole 40 mg capsule,delayed 40 mg PO DAILY stomac h #90 caps 07/26/24 Unknown Rx release metoprolol tartrate 25 mg tablet 25 mg PO DAILY BP #90 tabs 09/13/24 Unknown Rx melatonin 3 mg capsule 3 mg PO HS PRN sleep #30 cap s 10/14/24 Unknown Rx magna life topical 10/15/24 Unknown His tory tamsulosin 0.4 mg capsule 0.8 mg (2 x 0.4 mg) PO QDAY #60 11/15/24 Unknown Rx caps gabapentin 100 mg capsule 300 mg PO QHS 12/07/24 Unkno wn History ropinirole 0.25 mg tablet 0.25 mg PO QHS #30 tabs 11/17 07/13 Unknown Rx ciprofloxacin HCl 500 mg tablet 500 mg PO BID 10 days #20 tabs 01/05/25 Unknown Rx (Cipro) Allergy/AdvReac Type Severity Reaction Status Date / Time finasteride Allergy Intermediate mastodynia Verified 01/05/25 12:19 aspirin AdvReac Severe cannot Verified 01/05/25 12:19 take d/t Zach's Vasculitis Family History Mother [...] house 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 Intermittent gross hematuria. No dysuria. No fever. Able to urinate. Constitutional Constitutional ED: Denies chills or fever(s) Eyes Eyes: Denies blurry vision ENT ENT ED: Denies ear pain Cardiovascular Cardiovascular: Denies chest pain Respiratory/Chest Respiratory/Chest: Denies cough or dyspnea Gastrointestinal Gastrointestinal: Denies abdominal pain, diarrhea, nausea or vomiting Genitourinary Genitourinary ED: Reports hematuria; Denies dysuria or urinary frequency Musculoskeletal Musculoskeletal: Denies arthralgias Integumentary Denies abscess Neurologic Neurologic: Denies headache(s) Psychiatric Psychiatric: Denies anxiety Endocrine Endocrinology: Denies polydipsia, polyphagia or polyuria Hematologic/Lymphatic Hematologic/Lymphatic: Denies easy bleeding, easy bruising or lymphadenopathy Allergic/Immunologic Allergic/Immunologic ED: Denies mouth swelling, tongue swelling or urticaria EXAM Physical Exam Narrative Exam Narrative: Well-appearing 79-year-old male sitting upright in bed. present in room. Vital signs stable afebrile. No acute distress. He walked from triage into [facility]. H EENT exam pupils round reactive light. Moist mucous membranes. Neck nontender no JVD. Lungs clear to auscultation bilaterally. Heart regular rhythm rate about 85 no murmur. Chest wall and ribs nontender. Abdomen soft, nontender, nondistended, normal bowel sounds without peritoneal signs. No suprapubic tenderness. Moving all 4 extremities. Normal strength. Back nontender. Neurologically he is awake and alert. Answering questions followingcommands. Const Vital Signs: 01/05/25 12:17 Temperature 98.5 F Temperature Source Oral Pulse Rate 86 Respiratory Rate 16 Blood Pressure 145/76 H Blood Pressure Mean 99 Pulse Ox 94 Oxygen Delivery Method Room Air Positive well nourished and well developed; Negative for cachectic, contracturesor unkempt General Appearance ED: well developed and NAD; Negative for unkempt, cachectic, contractures or pallor Nutritional Appearance: Negative for cachectic HEENT Reports moist mucous membranes normocephalic and atraumatic Eyes PERRL and EOMs intact bilaterally Neck no lymphadenopathy, supple and no JVD General: Negative for tenderness Resp normal respiratory effort and clear to auscultation bilaterally Cardio regular rate, regular rhythm, S1 normal heart sound, S2 normal heart sound and no murmurs GI non-tender, non-distended and no masses Inspection: Negative for abdominal distention Auscultation: normoactive bowel sounds Palpation: soft; Negative for tender or guarding no CVA tenderness Back/Spine no CVA tenderness Extremity normal to inspection Extremity Narrative: Dialysis shunt left upper arm good thrill. General Extremety ED: Negative for edema, pulses abnormal or tenderness General Extremity: Negative for edema or pulses abnormal Neuro oriented x3, CN's II-XII intact bilaterally, moves all extremities and no focal motor deficits Sensorium / Orientation: alert, oriented to person, oriented to place and oriented to time Motor Exam: strength 5/5 throughout Psych mental status grossly normal Appearance: Negative for unkempt Thought Process: normal thought process Thought Content: normal thought content Skin General Skin Exam: Negative for jaundice or pallor Lesions: no lesions Rashes: no rashes MDM MDM MDM Narrative Medical decision making narrative: 71-year-old male with history of dialysis still makes urine. Complaining of intermittent gross hematuria for months consistent the last 3 days. UA OB obtained to evaluate for possible UTI. He is on no blood thinners. CBC and chemistry be obtained. Will check a bladder scan but he states he is urinating fine and has a good stream. Repeat exam at 2:45 PM patient doing well. No further complaints. Again stateshe is urinating and able to urinate. Does not want a catheter at this time. Hedoes not need one at this time. He will follow-up with his urologist Dr. Romero. He will be started on antibiotics Cipro 500 twice daily for 10 days first dose given here. History & Record Review Discussion w/independent historian: Patient and Family Additional record(s) reviewed:: Prior outpatient record, Prior ED visit and Prior labs Lab Data Attestation: I reviewed the patient's lab results. Lab results narrative: CBC shows a white count 3.6. H&H of 11.0 and 33. Platelets 136. Electrolytes show a gap at 10. BUN 9 creatinine 2.63 has got a history of Renalfailure on dialysis. CBC is consistent with prior. Glucose 114. Urinalysis shows 150 occult blood. No nitrates. 500 leukocyte esterase. 25-50red cells. Greater than 100 white cells. 1+ bacteria. Urine culture will be sent. Is to be treated as a UTI. Patient be started on oral antibiotics. Labs: Laboratory Results - last 24 hr 01/05/25 01/05/25 12:35 13:45 WBC 3.6 L RBC 3.53 L Hgb 11.0 L Hct 33.6 L MCV 95.2 H MCH 31.2 MCHC 32.7 RDW Std Deviation 49.5 H RDW Coeff of Misael 14.2 Plt Count 136 L MPV 9.2 Immature Gran % (Auto) 0.300 Neut % (Auto) 68.9 Lymph % (Auto) 17.2 L [place] % (Auto) 9.7 Eos % (Auto) 2.8 Baso % (Auto) 1.1 H Absolute Neuts (auto) 2.5 Absolute Lymphs (auto) 0.62 L Nucleated RBC % 0 Sodium 139 Potassium 3.8 Chloride 99 Carbon Dioxide 30.4 Anion Gap 10 BUN 9 Creatinine 2.63 H Est GFR (MDRD) Non-Af 24 L BUN/Creatinine Ratio 3.3 L Glucose 114 H Calcium 9.0 Urine Color Yellow Urine Clarity Cloudy Urine pH 8.0 Ur Specific [place] 1.010 Urine Protein 100 H Urine Glucose (UA) 50 H Urine Ketones Negative Urine Occult Blood 150 H Urine Nitrite Negative Urine Bilirubin Negative Urine Urobilinogen Normal Ur Leukocyte Esterase 500 H Urine RBC 25-50 SEEN Urine WBC >100 SEEN Ur Squamous Epith Cells 0-5 SEEN Urine Bacteria 1+ Urine Mucus 0 SEEN Discharge Plan Triage Chief Complaint: Complaint ED Provider: Vinay Gomez Dx/Rx/DC Orders Clinical Impression: Hematuria, Urinary tract infection, History of end stage renal disease Instructions: ED Hematuria, ED Urinary Tract Infections in Men Prescriptions: New ciprofloxacin HCl [Cipro] 500 mg tablet 500 mg PO BID 10 Days Qty: 20 0RF No Action (DME) handicap placard See Rx Instructions .ROUTE .MEDSUPPLY Qty: 1 0RF Rx Instructions: Length of time: 5 years Diagnosis: Impaired physical mobility z74.09 (DME) handicap placard See Rx Instructions .ROUTE .MEDSUPPLY Qty: 1 0RF Rx Instructions: Length of time: 5 years Diagnosis: Impaired physical mobility z74.09 triamcinolone acetonide 0.1 % ointment 1 applic topical DAILY PRN (Reason: rash/itching) Qty: 15 0RF mirtazapine 15 mg tablet 15 mg PO QHS Qty: 90 1RF gabapentin 100 mg capsule 300 mg PO QHS ropinirole 0.25 mg tablet 0.25 mg PO QHS Qty: 30 0RF magna life topical Rx Instructions: magna life cream topically to bilateral feet every evening omeprazole 40 mg capsule,delayed release(DR/EC) 40 mg PO DAILY Qty: 90 1RF metoprolol tartrate 25 mg tablet 25 mg PO DAILY Qty: 90 1RF melatonin 3 mg capsule 3 mg PO HS PRN (Reason: sleep) Qty: 30 0RF tamsulosin 0.4 mg capsule 0.8 mg PO QDAY Qty: 60 1RF Primary Care Provider: Kyler Garcia Referrals: Matilde Noguera MD [Med Staff - Active Staff] - Kael Decker MD [Med Staff - Active Staff] - As soon as possible Activity Restrictions/Additional Instructions: You have a urinary tract infection. A urine culture will be sent. Will start you on antibiotics Cipro 1 pill twice a day for 10 days. Call and follow-up with your urologist as soon as possible. If the blood does not clear up sometimes will consider doing a cystoscopy whether go on your bladder and look with the scope. Plenty of fluids to prevent clotting. Urinate frequently. If the bleeding getsa lot worse or you are unable to urinate return we may have to place a Osorio catheter. We do not have to at this time. Print Language: Ukrainian Disposition Disposition: Home, Self Care What to do if you have Problems For any increased pain, shortness of breath, bleeding, nausea or vomiting, chestpain, or any unexpected problems, contact your Primary Care Provider. Call [facility] ([phone]) or report to the closest Emergency Room. Call 911 if necessary. 01/05/25 4967 <Electronically signed by Vinay Gomez MD> Cosigner Signature (if applicable): CC: Kyler Garcia MD ~ Signed [facility] Work Phone: 1(849) 691-384007-22-2025 Evaluation note* Diagnosis Onset Date Resolution Status Admit Date Chronic neuropathic pain acute December 07, 2024 9:49am RLS (restless legs syndrome) acute December 07, 2024 9:49am Chronic back pain chronic December 072024 9:49am Essential hypertension chronic Ju 2024 9:49am Prediabetes chronic December 07 9:49am Zach's granulomatosis chronic December 07, 2024 9:49am Elevated PSA noneactive December 07 025 9:49am Heartburn noneactive December 07 9:49am Chronic insomnia noneactive November 9:49am Delirium noneactive December 07 9:49am Hospital discharge follow-up noneact gavi December 07, 2024 9:49am [facility] Work Phone: 1(757) 874-178607-22-2025 Evaluation note* Diagnosis Onset Date Resolution Status Admit Date Chronic neuropathic pain acute December 07, 2024 9:49am RLS (restless legs syndrome) acute December 07, 2024 9:49am Chronic back pain chronic December 072024 9:49am Essential hypertension chronic Ju 2024 9:49am Prediabetes chronic December 07 9:49am Zach's granulomatosis chronic December 07, 2024 9:49am Elevated PSA noneactive December 07 9:49am Heartburn noneactive December 07 9:49am Chronic insomnia noneactive November 9:49am Delirium noneactive December 07 9:49am Hospital discharge follow-up noneact gavi December 07, 2024 9:49am AV fistula acute March 04, 2025 2:11pm End stage renal disease on dialysis inactive March 04 2:11pm [facility] Work Phone: 1(958) 449-597307-15-2025 Miscellaneous Notes* Care Coordination - Unknown Case Management - 11/30/2024 1:42 PM EDT Patient Choice Patient Name: FRANKLIN BURTON Date of : 1945 All Providers Sent Referral Name: [facility] ([facility]) Address: [address] [place] [address] [address] [place] [address] Name: [facility] Phone: [phone] Address: [address] [place] [address] [address] [place] [address] Name: [facility] Phone: [phone] Address: [address] [place] [address] Name: [facility] Phone: [phone] Address: [address] [place] [address] Name: [facility] Address: [address] [place] [address] Name: [facility] Address: [address] [place] [address] Name: [facility] Address: [address] [place] [address] Name: [facility] ([facility] known [facility]) Phone: [phone] Address: [address] [place] [address] Name: [facility] Address: [address] [place] [address] Name: [facility] Phone: [phone] Address: [address] [place] [address] Name: [facility] Address: [address] [place] [address] Name: [facility] Address: [address] [place] [address] Name: [facility] Address: [address] [facility] [address] [place] [address] Name: [facility] Address: [address] [facility] [address] [place] [address] Name: [facility] Phone: [phone] Address: [address] [place] [address] Name: [facility] Phone: [phone] Address: [address] [place] [address] * Care Plan - Glen De La O RN - 11/30/2024 1:21 PM EDT Problem: Knowledge Deficit Goal: Patient/family/caregiver demonstrates understanding [...] status is improving Outcome: Adequate for Discharge * Care Coordination - Kelin Pulido RN - 11/30/2024 12:27 PM EDT Care Management Progress Note Short Medical why still here: Pt admitted with stroke like symptoms. Stroke workup negative. Worsening Cognition and ADL decline suspected to be chronic in nature. Pt active with [facility] in [place]. [phone] Chair times MWF Tamia willl hold chair 30 days. Family has opted for Home care services at this time. Home Care following. Home Care referrals pending. Fresh Work Wrapper Layer consulted to assist family with finding new PCP. New PCP appointment scheduled for January 13 2025 with Kyler Garcia. Spoke with Pts daughter Leonarda today and she voiced understanding that Pt will have to follow up with current PCP at least once for Home Care set up, and once established with new PCP home car can switch over to the new PCP. Gave daughter information for [facility] case they get home need additional resources Planned Discharge Disposition: Home Health Services Barriers/Today we still Wait: Home Care set up Length of Stay (Days): 5 GMLOS: 4.6 TCC to follow for discharge needs. * Care Plan - Madisyn Pereira RN - 11/30/2024 2:43 AM EDT Problem: Knowledge Deficit Goal: Patient/family/caregiver demonstrates understanding [...] risk of aspiration is minimized Outcome: Progressing * Care Plan - Glen De La O RN - 11/29/2024 7:26 PM EDT Problem: Knowledge Deficit Goal: Patient/family/caregiver demonstrates understanding [...] Goal: Nutritional status is improving Outcome: Progressing * Care Coordination - Kelin Pulido RN - 11/29/2024 3:30 PM EDT Care Management Progress Note Short Medical why [...] 4.6 TCC to follow for discharge needs. * Care Coordination - Loree Oneil RN - 11/29/2024 12:15 PM EDT Met with patient, Kaley and daughter Leonarda discussed patient would like a new PCP did not have aPCP in mind. Scheduled with [facility] in [place]. Plan of Treatment Plan of Treatment - Upcoming Encounters Upcoming Encounters Date Type Department Care Team (Latest Contact Info) Description 01/13/2025 11:00 AM EDT Office Visit [facility] [place] [address] [place] [address] Kyler Garcia MD [address] [place] [address] * Home Care - Dory Pereyra RN - 11/29/2024 11:49 AM EDT [facility] is agency of choice. [facility] unable to service as patient is out of service area. Educated patient and daughter Leonarda on Home Care and services available. Patient is agreeable to receiving home care services at this time. Patient was given choice of home care agencies available inthe area and is agreeable to having referrals made with agencies that staff the patients service location. Referrals have been sent via [employer]. Liaison to discuss available agencies to accept case with patient upon receiving responses. * Home Care - Dory Pereyra RN - 11/29/2024 11:41 AM EDT Relations Mgr following case for Discharge Needs. * Care Coordination - Kelin Pulido RN - 11/29/2024 11:30 AM EDT Care Management Progress Note Short Medical why still here: Pt admitted with stroke like symptoms. Stroke team consulted. Stroke workup negative. Worsening Cognition and ADL decline suspected to be chronic in nature. Met with pt's spouse Kaley and daughter Leonarda who were at bedside. Introduced self and role. Discussed possible SNF options Gave patient SNF list. Consulted law professor. Fresh Work Wrapper Layer consulted to assist family with finding new PCP. Pt is from home with family. Planned Discharge Disposition: Long Term Facility Barriers/Today we still Wait: Clinical stability Length of Stay (Days): 4 GMLOS: 4.6 TCC to follow for discharge needs. * Care Plan - Vicki Garzon RN - 11/28/2024 5:43 PM EDT Problem: Knowledge Deficit Goal: Patient/family/caregiver demonstrates understanding [...] Goal: Nutritional status is improving Outcome: Progressing * Care Plan - Nathanael Coelho RN - 11/28/2024 5:55 AM EDT Problem: Knowledge Deficit Goal: Patient/family/caregiver demonstrates understanding of disease process, treatment plan, medications, and discharge instructions 11/28/2024 0555 by Nathanael Coelho RN Outcome: Progressing 11/28/2024 0546 by Nathanael Coelho RN Outcome: Progressing Problem: Neurological Deficit Goal: Neurological status is stable or improving 11/28/2024 0555 by Nathanael Coelho RN Outcome: Progressing 11/28/2024 0546 by Nathanael Coelho RN Outcome: Progressing Problem: Activity Intolerance/Impaired Mobility Goal: Mobility/activity is maintained at optimum level for patient 11/28/2024 0555 by Nathanael Coelho RN Outcome: Progressing 11/28/2024 0546 by Nathanael Coelho RN Outcome: Progressing Problem: Potential for Aspiration Goal: Non-ventilated patient's risk of aspiration is minimized 11/28/2024 0555 by Nathanael Coelho RN Outcome: Progressing 11/28/2024 0546 by Nathanael Coelho RN Outcome: Progressing Goal: Ventilated patient's risk of aspiration is minimized 11/28/2024 0555 by Nathanael Coelho RN Outcome: Progressing 11/28/2024 0546 by Nathanael Coelho RN Outcome: Progressing Problem: Nutrition Goal: Nutritional status is improving 11/28/2024 05 by Nathanael Coelho RN Outcome: Progressing 11/28/2024 0546 by Nathanael Coelho RN Outcome: Progressing * Care Plan - Nathanael Coelho RN - 11/28/2024 5:46 AM EDT Problem: Knowledge Deficit Goal: Patient/family/caregiver demonstrates understanding [...] Goal: Nutritional status is improving Outcome: Progressing * Care Coordination - Alfreda Luna RN - 11/26/2024 11:42 AM EDT Care Management Progress Note Transferred to T2 ICU for aggitation, precedex gtt, iHD baseline MWF - nephrology following. PT/OT pending. Planned Discharge Disposition: Other (Comment) (TBD) iHD - [phone]. Will hold chair for 30 days. CM updated EHR/MELBA with dialysis information. Barriers/Today we still Wait: Administering IV medications, Clinical stability, Pipe Processor recommendations (comment) Length of Stay (Days): 1 GMLOS: No GMLOS Documented Case management will continue to follow for discharge planning. * Care Plan - Katheryn Wong RN - 11/25/2024 4:17 PM EDT Problem: Knowledge Deficit Goal: Patient/family/caregiver demonstrates understanding [...] Non-ventilated patient's risk of aspiration is minimized 11/25/20241616 by Katheryn Wong RN Outcome: Progressing 11/25/2024 1009 by Katheryn Wong RN Outcome: Progressing * Care Coordination - Kelin Pulido RN - 11/25/2024 4:02 PM EDT Care Management Progress Note Short Medical why still here: PT Direct admit from [facility], where the stroke neurologistdetermined that he was not having any LVO based on CTA and did not need TNK. Transferred to [facility] for further stroke work up related to Worsening facial droop. NIH 1, continued AMS. Pt with hx of CKDon HD. Cr-3.06, Hyponatremia 133, HTN 160's /100's. [...] Documented TCC to follow for discharge needs. * Medical Student - Harry Sauceda - 11/25/2024 11:00 AM EDT INITIAL CONSULT NOTE. STROKE SERVICE Patient Name: Franklin Burton Patient : 1945 Acct: [id number] Date of Admission: 11/25/2024 Room/Bed: [facility] A PCP: Matilde Noguera MD History of Present Ilness: 79 y.o. male with PMH of granulomatosis with polyangiitis, ESRD on hemodialysis, HTN, neuropathy, and pre-diabetes who presents with the chief Complaint of: altered mental status and confusion following a dialysis session. According to the patient's son, [id number], a nd , Mr. Burton returned from a routine [...] to ambulate. The patient was taken to [facility], where the stroke neurologist determined that he was not having any LVO basedon CTA and did not need TNK. The team at [facility] felt this may have been related to fluid shift inrelation to dialysis and transferred patient to [facility] for further imaging due to non- availability at [facility]. Of note, Mr. Burton has presented with [...] (40 mg) by mouth daily. 10/15/22 Rahel Terry MD oxyCODONE-acetaminophen (Percocet) 5-325 MG tablet Take [...] 62 years ago. He has a 19 pack- year smoking history. He has never used smokeless [...] 347 ms QTC Interval 438 ms P Kenton 68 degrees QRS [place] 35 degrees T Wave [place] 38 degrees TX Interval 185 ms Hemoglobin A1c Collection Time: [...] mL/min/1.73m*2 Since admission: No results for input(s): CKTOTAL, TROPONINI in the last 72 hours. Recent Labs 11/25/24 0702 ALKPHOS 81 ALT 13 AST 22 BILITOT 0.6 @[facility]) ABGs:)No results for input(s): PH, PO2, PCO2, HCO3, O2SAT in the last 72 hours. No lab exists for component: BE Cultures: Blood culture #1: No lab exists for component: BC Blood culture #2: No lab exists for component: BLOODCULT2 Antiepileptic levels: No results for input(s): PHENYTOIN, PHENOBARB, VALPROATE in the last 72 hours. No lab exists for component: CARBTOT, LAMOTRIG, KEPPRA Coagulation: No results for input(s): INR in the last 72 hours. CSF: No results for input(s): CULTURE, PROTEIN in the last 72 hours. No lab exists for component: CHARCSF, CELL COUNT, GRAM STAIN Stroke Specific: Lipids: Recent Labs 11/25/24 0702 CHOL 146 TRIG 104 HDL 39* HgA1c: No lab exists for component: LABA1C Radiology Personal review: 11/25/24 CT Head w/o IV Contrast IMPRESSION: No acute intracranial abnormality. Diffuse cortical volume loss and chronic small vessel ischemic changes. CTA performed at [facility], results to be uploaded to patient's chart by [facility] [employer] ASSESSMENT / PLAN / SUGGESTIONS : Mr. Franklin Burton is a 79-year-old male presenting for 1-day history of acute altered mental status and confusion following a routine hemodialysis session. Patient has had similar episodes at leasttwice before, each time in temporal relation to a hemodialysis session. He first presented to [facility], where initial CTA imaging ruled out LVO or need for TNK. He was then sent to [facility] to obtain further imaging and workup due to non-availability of equipment at original hospital. Patienthas fluctuating levels of alertness and mentation during [...] out. He has no myelopathic signs and doesnot appear to have any signs of potential [...] infectious (unlikely given lack of symptoms and SIRScriteria), and uremic encephalopathy (given observed asterixis in [...] day, protect sleep at night, Seroquel if neededat night for sleep, regular monitoring, keeping patient [...] 07/24/2016 no diabetes GERD (gastroesophageal reflux disease) [place] (hard of hearing) RIGHT EAR AND HAS [...] MD, Last Rate: 50 mL/hr at 11/25/24 07, 50 mL/hr at 11/25/24 0702 sodium chloride 0.9% (NS) flush 5-40 mL, 5-40 mL, IntraVENous, q12h, Daniel Marshall MD sodium chloride 0.9% (NS) flush 5-40 mL, 5-40 mL, IntraVENous, PRN, Daniel Marshall MD tamsulosin (Flomax) 24 hr capsule 0.4 mg, 0.4 mg, Oral, Daily, Daniel Marshall MD [4] sodium chloride, 50 mL/hr, Last Rate: 50 mL/hr (11/25/24 07) [5] Family History Problem Relation Name Age [...] was not clear. He was taken to [facility] where he had a CT scan of the head and CT angiogram of the head and neck. He was offered tenecteplase but the family refused given similar episodes in the past. He was then transferred to [facility]. At [facility] on arrival, blood pressure 154/87, blood work [...] he does have some asterixis but no zzyumm-er-sbkh dystaxia or dysmetria. No numbness on light [...] counseling/coordinating care and provided discussion regarding diagnostic i mpressions and the plan of care with the consulting team Nuha Hebert MD * Care Plan - Katheryn Wong RN - 11/25/2024 10:09 AM EDT Problem: Knowledge Deficit Goal: Patient/family/caregiver demonstrates understanding of disease process, treatment plan, medications, and discharge instructions Outcome: Progressing Problem: Neurological Deficit Goal: Neurological status is stable or improving Outcome: Progressing Problem: Activity Intolerance/Impaired Mobility Goal: Mobility/activity is maintained at optimum level for patient Outcome: Progressing Problem: Potential for Aspiration Goal: Non-ventilated patient's risk of aspiration is minimized Outcome: Progressing documented in this [facility]07-15-2025 Note* Care Coordination - Unknown Case Management - 11/30/2024 1:42 PM EDT Patient Choice Patient Name: FRANKLIN BURTON Date of : 1945 All Providers Sent Referral Name: [facility] ([facility] Address: [address] [place] [address] Name: [facility] Phone: [phone] Address: [address] [place] [address] Name: [facility] Phone: [phone] Address: [address] [place] [address] Name: [facility] Phone: [phone] Address: [address] [place] [address] Name: [facility] Address: [address] [place] [address] Name: [facility] Address: [address] [place] [address] Name: [facility] Address: [address] [place] [address] Name: [facility] ([facility]) Phone: [phone] Address: [address] [place] [address] Name: [facility] Address: [address] [place] [address] Name: [facility] Phone: [phone] Address: [address] [place] [address] Name: [facility] Address: [address] [place] [address] Name: [facility] Address: [address] [place] [address] Name: [facility] Address: [address] [address] [place] [address] Name: [facility] Address: [address] [facility] [address] [place] [address] Name: [facility] Phone: [phone] Address: [address] [place] [address] Name: [facility] Phone: [phone] Address: [address] [facility] [address] [place] [address] [facility] [id number] Note* Care Coordination - Unknown Case Management - 11/30/2024 1:42 PM EDT Patient Choice Patient Name: FRANKLIN BURTON Date of : 1945 All Providers Sent Referral Name: [facility] ([facility] Address: [address] [place] [address] Name: [facility] Phone: [phone] Address: [address] [place] [address] Name: [facility] Phone: [phone] Address: [address] [place] [address] Name: [facility] Phone: [phone] Address: [address] [place] [address] Name: [facility] Address: [address] [place] [address] Name: [facility] Address: [address] [place] [address] Name: [facility] Address: [address] [place] [address] Name: [facility] Phone: [phone] Address: [address] [place] [address] Name: [facility] Address: [address] [place] [address] [address] [place] [address] Name: [facility] Phone: [phone] Address: [address] [place] [address] Name: [facility] Address: [address] [place] [address] Name: [facility] Address: [address] [place] [address] Name: [facility] Address: [address] [facility] [address] [place] [address] Name: [facility] Address: [address] [facility] [address] [place] [address] Name: [facility] Phone: [phone] Address: [address] [place] [address] Name: [facility] Phone: [phone] Address: [address] [facility] [address] [place] [address] [facility] [id number] Plan of care note* Care Plan - Glen De La O RN - 11/30/2024 1:21 PM EDT Problem: Knowledge Deficit Goal: Patient/family/caregiver demonstrates understanding [...] status is improving Outcome: Adequate for Discharge [facility] [id number] Note* Care Coordination - Kelin Pulido RN - 11/30/2024 12:27 PM EDT Care Management Progress Note Short Medical why still here: Pt admitted with stroke like symptoms. Stroke workup negative. Worsening Cognition and ADL decline suspected to be chronic in nature. Pt active with [facility] in [place]. [phone] Chair times [facility] Tamia willl hold chair 30 days. Family has opted for Home care services at this time. Home Care following. Home Care referrals pending. Fresh Work Wrapper Layer consulted to assist family with finding new PCP. New PCP appointment scheduled for January 13 2025 with Kyler Garcia. Spoke with Pts daughter Leonarda today and she voiced understanding that Pt will have to follow up with current PCP at least once for Home Care set up, and once established with new PCP home car can switch over to the new PCP. Gave daughter information for [facility] case they get home need additional resources Planned Discharge Disposition: Home Health Services Barriers/Today we still Wait: Home Care set up Length of Stay (Days): 5 GMLOS: 4.6 TCC to follow for discharge needs. [facility] [id number] Note* Care Coordination - Kelin Pulido RN - 11/30/2024 12:27 PM EDT Care Management Progress Note Short Medical why still here: Pt admitted with stroke like symptoms. Stroke workup negative. Worsening Cognition and ADL decline suspected to be chronic in nature. [facility] [place] [phone] Chair times MWF [facility] willl hold chair 30 days. Family has opted for Home care services at this time. Home Care following. Home Care referrals pending. Fresh Work Wrapper Layer consulted to assist family with finding new PCP. New PCP appointment scheduled for January 13 2025 with Mr. Kyler Garcia. Spoke with Pts farhana Brower today and she voiced understanding that Pt will have to follow up with current PCP at least once for Home Care set up, and once established with new PCP home car can switch over to the new PCP. Gave daughter information for [facility] be[facility] case they get home need additional resources Planned Discharge Disposition: Home Health Services Barriers/Today we still Wait: Home Care set up Length of Stay (Days): 5 GMLOS: 4.6 TCC to follow for discharge needs. [facility] [id number] NoteCare Management Progress Note Short Medical why still here: Pt admitted with stroke like symptoms. Stroke workup negative. Worsening Cognition and ADL decline suspected to be chronic in nature. [facility] [place] [phone] Chair times [facility] willl hold chair 30 days. Family has opted for Home care services at this time. Home Care following. Home Care referrals pending. Fresh Work Wrapper Layer consulted to assist family with finding new PCP. New PCP appointment scheduled for January 13 2025 with . Kyler Garcia. Spoke with Pts farhana Brower today and she voiced understanding that Pt will have to follow up with current PCP at least once for Home Care set up, and once established with new PCP home car can switch over to the new PCP. Gave daughter information for [facility] just in case they get home need additional resources Planned Discharge Disposition: Home Health Services Barriers/Today we still Wait: Home Care set up Length of Stay (Days): 5 GMLOS: 4.6 TCC to follow for discharge needs. [facility]07-15-2025 NoteNephrology Progress Note Patient: Franklin Burton Room number: [id number] Date of Admit: 11/25/2024 LOS: 5 days Referring physician: Aziza Christianson MD Outpatient Motor Polarizer: Tamia Marquez Assessment / Plan Franklin Burton is a 79 y.o. male with a past medical history of ESRD on HD MWF at [facility], GPA, DM type 2, HTN, HFrEF, [...] call with any questions. Aleyda Martinez MD [facility] ([facility]) Office phone: [phone] Office fax: [phone] 11/30/2024 Subjective Patient was seen and examined [...] as of this encounter: 1.727 m (5' 7.99). Weight as of this encounter: 103 kg [...] present LABS Labs reviewed. Recent Labs 11/28/24 02011/29/2434711/30/24 0545 WBC 4.6 4.2 5.2 HGB 10.5* [...] IntraVENous, q12h tamsulosin, 0.4 mg, Oral, Daily [2]Formerly [facility]07-15-2025 History of Present illness Narrative* Aleyda Martinez MD - 11/30/2024 12:11 PM EDT Images from the original note were not included. Nephrology Progress Note Patient: Franklin Burton Room number: W3-332/W3-332 A Date of Admit: 11/25/2024 LOS: 5 days Referring physician: Aziza Christianson MD Outpatient Motor Polarizer: [facility] Assessment / Plan Franklin Burton is a 79 y.o. male with a past medical history of ESRD on HD MWF at [facility], GPA, DM type 2, HTN, HFrEF, [...] call with any questions. Aleyda Martinez MD [facility] ([facility]) Office phone: [phone] Office fax: [phone] 11/30/2024 Subjective Patient was seen and examined [...] as of this encounter: 1.727 m (5' 7.99). Weight as of this encounter: 103 kg [...] bruit present LABS Labs reviewed. Recent Labs 11/28/2420011/29/2434711/30/24 0545 WBC 4.6 4.2 5.2 HGB 10.5* 10.7* 12.0* HCT 31.9* 32.1* 36.0* MCV 93.5 92.8 92.5 PLT 118* 123* 152 Recent Labs 11/28/2420011/29/248 11/30/24 0545 ALT 16 25 28 AST [...] q12h tamsulosin, 0.4 mg, Oral, Daily [2] * Erasmo Kenney OT - 11/30/2024 12:09 PM EDT Images from the original note were not included. OCCUPATIONAL THERAPY [facility] Initial Evaluation Name/MRN: Franklin Burton ([id number]) Evaluation Date: 11/30/2024 Date of : 1945 [...] as well as diminished strength, endurance, balance, andsafety. Pt is currently Mod A for bed mobility, Min A for STS from EOB w/FWW, and Min A-CGA for functional ambulation to/from door w/FWW. Pt requires more assist with turns and is unsteady. Pt is currently Max-Min A for ADL's. Recommending IPR at discharge as pt is unsafe to return home, pt is motiv ated, and can tolerate daily therapy. If family decline IPR, then recommend 24 hour assist and homeOT. Pt will continue to benefit from acute [...] 08/07/2023 Tremor 08/07/2023 Malnutrition of mild degree ([facility]) 03/09/2023 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 ([facility]) 03/01/2023 Peritoneal dialysis catheter in situ (CMS/HCC) ([facility]) 03/01/2023 Periumbilical abdominal pain 03/01/2023 Motion sickness 12/24/2022 Arthralgia 12/02/2022 Bronchitis 12/02/2022 Chest pain 12/02/2022 Chronic back pain 12/02/2022 Diarrhea 12/02/2022 Epistaxis 12/02/2022 Fever 12/02/2022 Finding of above normal blood pressure 12/02/2022 Hearing loss 12/02/2022 Heartburn 12/02/2022 Intermittent claudication ([facility]) 12/02/2022 Obesity with body mass index 30 or greater 12/02/2022 Prediabetes 12/02/2022 Restless legs syndrome 12/02/2022 Viral upper respiratory tract infection 12/02/2022 Chronic neuropathic pain 11/28/2022 Pain, unspecified 10/25/2022 Ankle pain 08/29/2022 Other mechanical complication of surgically created arteriovenous fistula, initial encounter ([facility]) 08/21/2022 Coagulation defect, unspecified ([facility]) 08/20/2022 Abnormal echocardiography 08/05/2022 Allergy, unspecified, initial encounter 08/01/2022 Anaphylactic shock, unspecified, initial encounter 08/01/2022 ESRD (end stage renal disease) ([facility]) 08/01/2022 Anemia in chronic kidney disease 07/30/2022 Dialysis patient ([facility]) 07/30/2022 Noninfective gastroenteritis and colitis, unspecified 07/30/2022 Secondary hyperparathyroidism of renal origin (HCC) 07/30/2022 Chronic systolic heart failure (HCC) 06/03/2022 Neuropathy 03/26/2022 Heart failure (HCC) 03/26/2022 Disease due to severe acute respiratory syndrome coronavirus 2 (SARS-CoV-2) 01/22/2022 Disorder of brain 01/22/2022 Fatigue 01/22/2022 Hyperkalemia 01/22/2022 Stage 3 chronic kidney disease (HCC) 01/22/2022 Arteriovenous fistula (CMS/HCC) (HCC) 07/25/2021 Stage 5 chronic kidney disease due to hypertension ([facility]) 02/20/2021 BPH with urinary obstruction 04/06/2020 Zach's granulomatosis with renal involvement ([facility]) 10/27/2019 Gastroesophageal reflux disease 10/21/2019 Hypertension 10/21/2019 Morbidly obese ([facility]) 10/21/2019 Iron deficiency anemia, unspecified 10/21/2019 Obstructive sleep apnea syndrome 10/20/2019 Avascular necrosis of bone of hip (CMS/HCC) ([facility]) 07/09/2019 Abdominal hernia 07/09/2019 Polyneuropathy due to other toxic agents ([facility]) 11/17/2017 Diverticulosis of large intestine without diverticulitis 08/22/2017 BPH with obstruction/lower urinary tract symptoms 07/24/2016 Adenomatous colon polyp 01/27/2016 Vitamin D deficiency 11/29/2015 Osteoporosis 10/09/2015 Granulomatosis with polyangiitis ([facility]) 12/30/2014 Compression fracture of L1 lumbar vertebra ([facility]) 12/30/2014 Medical Precautions: No active isolations Proper [...] Assist Receives Help From: Significant other Active Family Helper: Yes Prior Level of Function Prior Level [...] of Care, ADL Adaptive Strategies, Transfer Training, Orientation,Equipment, Fall Prevention Education, Discharge Recommendations, and Benefits of Increasing Activity Education Method: Verbal Barriers to Learning: Cognition Education Outcome: Continued Education Needed Goals Patient Stated Goal: To get up. Encounter Problems Encounter Problems (Active) Balance Patient [...] Time In 1120 Time Out 1135 Minutes Earnest Kenney OT Patient's Occupational Therapy Plan of Care supervision is transferred to a [facility] Occupational Therapist. Goals and/or [...] 07/24/2016 no diabetes GERD (gastroesophageal reflux disease) [place] (hard of hearing) 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 Hypertension Indwelling Osorio catheter present Obesity ROYAL (obstructive sleep apnea) Osteoarthritis Restless legs syndrome Status post right hip replacement 03/19/2016 Urge incontinence 07/24/2016 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[facility]) [2] Past Surgical History: Procedure Laterality Date [...] gastritis, duodenitis and esophagus WISDOM TOOTH EXTRACTION * Yana Pleitez, YARD OPERATOR - 11/30/2024 10:38 AM EDT Images from the original note were not included. Speech-Language Pathology SPEECH LANGUAGE PATHOLOGY [facility] Dysphagia Treatment Note Patient Name: Franklin Burton Evaluation Date: 11/30/2024 Date of : 1945 Admission Date: 11/25/2024 5:45 AM Age: 79 y.o. Room/Bed: [facility] A Subjective Patient was awake and cooperative. [...] Comment Frequency Lunch Frequency Dinner Select supplement: Vanelisabeth Magic Cup 11/26/24 1536 Aspiration Precautions: - [...] liquids Patient has achieved all acute care YARD OPERATOR goals. Speech therapy to sign off at [...] consistency to allow for safe consumption of dailymeals (Completed) Start: 11/25/24 Expected End: 12/09/24 Resolved: 11/30/24 Patient will demonstrate safe swallowing Intervention/techniques (Completed) Start: 11/25/24 Expected End: 12/09/24 Resolved: 11/30/24 Patient will participate in repeat clinical dysphagia evaluation (Completed) Start: 11/25/24 Expected End: 12/09/24 Resolved: 11/26/24 Therapy Time YARD OPERATOR Individual Minutes Time In: 1020 Time Out: 1030 Minutes: 10 Yana Pleitez MA, CCC/YARD OPERATOR * Zainab Doss APRN - BLOOD OR BLOOD BANK TECHNICIAN - 11/30/2024 8:26 AM EDT [facility] Geriatric Medicine Inpatient Consult Service Admission [...] sedation. Do not anticipate needing at discharge --[place] PRN Seroquel and Haldol for ONLY if [...] changes --Recommend outpatient follow up at [facility] formore in depth cognitive evaluation when in usual [...] per PT recommendations. Patient and family plan forpatient to return home with [facility] at discharge -- vitamin D level [...] with Dr. Christianson. Follow-up: Follow up at [place] for [facility] in 4 weeks Subjective Chief Complaint: stroke-like symptoms Geriatrics consulted for rec confusion HPI- The patient is known to me. 79 y.o. year-old male admitted to acute care from outside facility for altered mental stays. Diagnosed with acute metabolic encephalopathy. Admitted for neurological evaluation however complicated byagitation. Ammonia, vitamin B12 WNL. Patient transferred to ICU for completion management of agitation to complete EEG and MRI brain. Transferred from ICU 11/28. Hospital stay complicated by delirium. Interval History: Remains on 3W. No documented overnight events. Labs reviewed with sodium 135, BUN14, creatinine 2.91, hemoglobin 12.0. Has not received PRN medications. Completed HD session yesterday. Plan for discharge home with [facility]. Patient awake and alert in bed [...] to discharge home today. 11/30: Seen by YARD OPERATOR. Recommending minced and moist solids and thin [...] confusion and sleep disturbance. The patient is notnervous/anxious. Objective BP 138/100 (BP Location: Right arm, Patient Position: Sitting) Pulse 118 Temp 36.6 C (97.8 F) (Temporal) Resp 16 Ht 5' 7.99 (1.727 m) Wt 228 lb (103 kg) [...] appropriate , oriented x month, year, city, andself, follows commands, no tremor Musculoskeletal: Muscle strength [...] 1.38 11/29/2024 Lab Results Component Value Date [id number] 429 11/25/2024 Lab Results Component Value Date [...] 0.5 mg, 0.5 mg, IntraMUSCular, q6h PRN, Zainab Doss APRN - BLOOD OR BLOOD BANK TECHNICIAN heparin injection 5,000 Units, 5,000 Units, SubCUTAneous, 2 times per day, Cristi Dasilva MD, 5,000 Units at 11/29/24 1022 melatonin tablet 5 mg, 5 mg, Oral, Nightly, Temi Araujo, OLGA, 5 mg at 11/29/24 2139 metoprolol tartrate (Lopressor) tablet 25 mg, 25 mg, Oral, BID, Cristi Dasilva MD, 25 mg at naloxone (Narcan) injection 0.4 mg, 0.4 mg, [...] 12.5 mg, 12.5 mg, Oral, BID PRN, Zainab Doss, ARCHITECTURAL EXAMINER - BLOOD OR BLOOD BANK TECHNICIAN QUEtiapine (SEROquel) tablet 25 mg, 25 mg, [...] Daily, Cristi Dasilva MD, 0.4 mg at * Vijay Lott MD - 11/29/2024 1:27 PM EDT Hospitalist Progress Note - [facility] - [employer] ([facility]) 11/29/2024 1:27 PM [phone]: Please page me for patient care issues. [phone]: Please page [facility] Hospitalist - [facility] for any issues. Subjective and Objective: Admit Date: 11/25/2024 PCP: Matilde Noguera MD No chief complaint on file. Hospital course: ICU course per Dr. Dasilva: 79 y/o M with PMHx ESRD on iHD, BPH, T2DM, Obesity, ROYAL, RLS, GPA, HFpEF(EF 50% on 11/25/24), chronic back pain with neuropathy who presented to [facility] as a transfer from outside facility [...] plan for potential transfer to floor later inthe day. Pt transferred to [facility] 11/28. Neurocritical care advised against LP. YARD OPERATOR eval ordered for dysphagia, diet advanced with improvement in encephalopathy. MRI brain 11/26 with probable chronic ischemic and atrophic changes. EEG performed 11/27, interpreted as Continuous diffuse mild slowing is seen not responsive to stimulation...findings are supportive of a stable mild global encephalopathy non-specific as to etiology. Neuro was concerned for dialysis disequilibrium syndrome, however nephrology did not suspect this was the cause given that the patient did not possess typical risk factors for largeswings in solutes as far as new onset dialysis or when restarting dialysis after significant lapsesin treatment. Per discussions with family, pt was taking extra of pain medications including lyrica and gabapentin. Takes for restless legs + LE neuropathy. Inconsistent dosing may have resulted in unintentional dose accumulation leading up to his presentation. Prior episode approx 1yr ago was preceded by severeback pain a few days before, therefore concern [...] arrange transportation. DC in AM; family wants [facility] Adult diet Dysphagia - Minced and [...] [Urine:100 (0 mL/kg/hr)] Weight: 103.4 kg @IODETAILS@ @[email or web address]@ Medications: Continuous Meds[1] Scheduled Meds[2] Recent Labs 11/27/2431411/28/24 0201 11/29/24 0348 WBC 5.9 4.6 4.2 HGB 11.1* 10.5* 10.7* PLT 114* 118* 123* Recent Labs 11/27/2431411/28/24 0201 11/29/24 0348 NA 136 134* 134* K 3.9 4.1 3.8 CL 103 105 106 CO2 24 22* 21* BUN 16 26* 31* CREATININE 2.84* 3.52* 4.03* GLUCOSE 110 97 94 Recent Labs 11/27/2431411/28/24 0201 11/29/24 0348 AST 27 31 35* ALT 9 16 25 BILITOT 1.2* 0.8 0.9 ALKPHOS 83 82 91 No results found for: TRIG, HDL, LDLCALC, CHOL No results found for: PHART, PO2ART, UJS2BWX No results for input(s): INR in the last 72 hours. No results for input(s): CKTOTAL, CKMB, TROPONINI in the last 72 hours. No results for input(s): DDIMER in the last 72 hours. No results found for: HGBA1C Lab Results Component Value Date TSH 1.38 11/29/2024 Urine Culture: No results found for this or any previous visit. Objective: Vitals: BP 151/96 (BP Location: Right arm, Patient Position: Sitting) Pulse 96 Temp 36.4 C (97.5 F) (Temporal) Resp 16 Ht 5' 7.99 (1.727 m) Wt 228 lb (103 kg) [...] -Skilled for SNF, family and pt prefer [facility] Stable chronic problems affecting care, new [...] - Date - 11/30 - Location - [facility] - Pending the following - medically ready, req transportation for home Total time spent (which include face to face and non face to face encounters) in minutes: 51 Extended Emergency Contact Information Primary Emergency Contact: Dimitri Burton Mobile Relation: Son Secondary Emergency Contact: Leonarda Carmona Relation: Child Vijay Lott MD Division of Hospitalist Medicine Inpatient Medical Services/[facility] [1] [2] atorvastatin, 40 mg, Oral, Nightly [...] IntraVENous, q12h tamsulosin, 0.4 mg, Oral, Daily * Sarah Bass [facility]-YARD OPERATOR - 11/29/2024 11:25 AM EDT Images from the original note were not included. Speech-Language Pathology SPEECH LANGUAGE PATHOLOGY [facility] Dysphagia Treatment Note Patient Name: Franklin Burton Evaluation Date: 11/29/2024 Date of : 1945 Admission Date: 11/25/2024 5:45 AM Age: 79 y.o. Room/Bed: [facility] A Subjective Patient alert and cooperative. Seen [...] were pulled last month and gums are Finally healing. Upper dentures in place. Accepted liquids via cup edge, self-fed, WFL. Tolerated puree solids WFL. Trialed minced/moist & soft/bite sized textures this date. Pt tolerated minced/moist solids with timely mastication, achieved full bolus clearance. Sof t/bite sized solids resulted in more prolonged mastication/oral holding I have to let it soak in my mouth a bit. Pt did clear soft/bite sized solids but also complained of gums feeling sore. There were no overt s/s of aspiration/penetration noted. Vocal quality remained clear. Appropriate for sm all diet advancement. Plan & Recommendations Plan: Continue acute YARD OPERATOR therapy per initial plan of care and [...] Stated Goal: get up and move a bit Encounter Problems Encounter Problems (Active) Swallowing Patient will tolerate the least restrictive diet consistency to allow for safe consumption of dailymeals (Progressing) Start: 11/25/24 Expected End: 12/09/24 Patient will demonstrate safe swallowing Intervention/techniques (Progressing) Start: 11/25/24 Expected End: 12/09/24 Patient will participate in repeat clinical dysphagia evaluation (Completed) Start: 11/25/24 Expected End: 12/09/24 Resolved: 11/26/24 Therapy Time YARD OPERATOR Individual Minutes Time In: 1110 Time Out: 1125 Minutes: 15 Sarah Bass CCC-YARD OPERATOR * Aleyda Martinez MD - 11/29/2024 10:47 AM EDT Images from the original note were not included. Nephrology Progress Note Patient: Franklin Burton Room number: W3-332/W3-332 A Date of Admit: 11/25/2024 LOS: 4 days Referring physician: Vijay Lott MD Outpatient Motor Polarizer: Tamia Marquez Assessment / Plan Franklin Burton is a 79 y.o. male with a past medical history of ESRD on HD MWF at [facility], GPA, DM type 2, HTN, HFrEF, [...] call with any questions. Aleyda Martinez MD [facility] ([facility]) Office phone: [phone] Office fax: [phone] 11/29/2024 Subjective Patient was seen and examined [...] as of this encounter: 1.727 m (5' 7.99). Weight as of this encounter: 103 kg (228 lb). Physical Exam General: awake and alert, lying comfortable in bed in NAD, still somewhat slow to answer questions.He is on RA. HEENT: Sclera clear, EOMI, MMM, Nose/ears/hearing grossly normal Neck: Supple, trachea midline, no mass Chest: Normal excusion Heart: RRR, no rub/heave Lungs: Clear bilaterally, unlabored Abd: Soft, (+) BS, non-tender, non distended Ext: No edema Neuro: No tremor/myoclonus Skin: warm and dry, no rash LUE AVF with thrill and bruit present LABS Labs reviewed. Recent Labs 11/27/24 0315 11/28/24 0201 11/29/24 0348 WBC 5.9 4.6 4.2 HGB 11.1* 10.5* 10.7* HCT 33.7* 31.9* 32.1* MCV 93.6 93.5 92.8 PLT 114* 118* 123* Recent Labs 11/27/24 0315 11/28/24 0201 11/29/24 0348 ALT 9 16 25 [...] q12h tamsulosin, 0.4 mg, Oral, Daily [2] * Zainab Doss APRN - BLOOD OR BLOOD BANK TECHNICIAN - 11/29/2024 9:02 AM EDT [facility] Geriatric Medicine Inpatient Consult Service Admission [...] to wean as able. Hold for sedation. --[place] PRN Seroquel and Haldol for ONLY if [...] changes --Recommend outpatient follow up at [facility]) formore in depth cognitive evaluation when in usual [...] if pregabalin 25 mg PO BID is stoppedabruptly. --Agree with fasting iron panel to detect [...] Chief Complaint: stroke-like symptoms Geriatrics consulted for rec confusion HPI- The patient is new to me but seen by the Geriatric Inpatient Consult team. 79 y.o. year-old male admitted to acute care from outside facility for altered mental stays. Diagnosed with acute metabolic encephalopathy. Admitted for neurological evaluation however complicated byagitation. Ammonia, vitamin B12 WNL. Patient transferred to [...] be Dds. Plan for HD today. Per CM progress note, information provided for new PCP. Labs reviewed with sodium 134, BUN 31, creatinine 4.03, hemoglobin 10.7. Patient awake and alert in bed. Ambulated back to bed with nurse aide and nurse internal security manager at bedside. Patient denies pain and reports [...] prior to admission. Reports he was forgetful attimes. She is agreeable to follow up with geriatrics outpatient. Will provide information on discharge paperwork. Spoke to nurse internal security manager at bedside. Patient was agitated overnight and received PRN medications. No reported agitation this morning. 11/29: Seen by YARD OPERATOR. Recommending minced and moist solids and thin [...] confusion and sleep disturbance. The patient is notnervous/anxious. Objective BP 156/96 (BP Location: Right arm, Patient Position: Sitting) Pulse 89 Temp 36.3 C (97.4 F) (Temporal) Resp 20 Ht 5' 7.99 (1.727 m) Wt 228 lb (103 kg) [...] , oriented x month, year, city, and self,follows commands, no tremor Musculoskeletal: Muscle strength 5/5 RLE, 5/5 LLE. Gait: steady with assist by nurse aide and nurseextern at bedside, rolling walker Skin: warm and [...] 3.739 04/09/2021 Lab Results Component Value Date [id number] 11/25/2024 Lab Results Component Value Date [...] Cristi Dasilva MD, 50 mg at 11/28/24 08 benzocaine (Hurricaine) 20 % mouth spray 2 [...] 5 mg, 5 mg, Oral, Nightly, Temi Araujo NP, 5 mg at 11/28/24 234 metoprolol tartrate (Lopressor) tablet 25 mg, 25 mg, Oral, BID, Cristi Dasilva MD, 25 mg at perflutren protein A microsphere (Optison) 3 mL in sodium chloride (PF) 0.9 % 10 mL IV, 0-10 mL, IntraVENous, Once PRN, Daniel Marshall MD polyethylene glycol (PEG) 3350 (Miralax) packet 17 g, 17 g, Oral, Daily PRN, Cristi Dasilva MD QUEtiapine (SEROquel) tablet 25 mg, 25 mg, Oral, Nightly, Cristi Dasilva MD, 25 mg at 11/28/246 senna-docusate sodium (Senokot-S) 8.6-50 MG tablet 2 [...] Daily, Cristi Dasilva MD, 0.4 mg at 837 * Vijay Lott MD - 11/28/2024 10:43 AM EDT Hospitalist Progress Note - [facility] - [employer] ([facility]) 11/28/2024 10:46 AM [phone]: Please page me for patient care issues. [phone]: Please page [facility] Hospitalist - [facility] for any issues. Subjective and Objective: Admit Date: 11/25/2024 PCP: Matilde Noguera MD No chief complaint on file. Hospital course: ICU course per Dr. Dasilva: 79 y/o M with PMHx ESRD on iHD, BPH, T2DM, Obesity, ROYAL, RLS, GPA, HFpEF(EF 50% on 11/25/24), chronic back pain with neuropathy who presented to [facility] as a transfer from outside facility [...] plan for potential transfer to floor later inthe day. Pt transferred to [facility] 11/28. Neurocritical care advised against LP. YARD OPERATOR eval ordered. EEG performed 11/27, interpreted as Continuous diffuse mild slowing is seen not responsive to stimulation...findings are supportive of a stable mild global encephalopathy non-specific as to etiology. Interval Updates: 11/28/24 -Phos 2.0 (1.6), BMP [...] [Urine:150 (0 mL/kg/hr)] Weight: 103.4 kg @IODETAILS@ @[id number]@ Medications: Continuous Meds[1] Scheduled Meds[2] Recent Labs 11/26/2441911/26/24 0647 11/27/245 11/28/24 0201 WBC 6.5 -- 5.9 4.6 [...] 81 83 82 No results found for: TRIG, HDL, LDLCALC, CHOL No results found for: PHART, PO2ART, TAG7LMV No results for input(s): INR in the last 72 hours. No results for input(s): CKTOTAL, CKMB, TROPONINI in the last 72 hours. No results for input(s): DDIMER in the last 72 hours. No results found for: HGBA1C No results found for: TSH Urine Culture: No results found for this or any previous visit. Objective: Vitals: BP 143/80 (BP Location: Right arm, Patient Position: Lying) Pulse 92 Temp 36.7 C (98.1 F) (Temporal) Resp 16 Ht 5' 7.99 (1.727 m) Wt 228 lb (103 kg) [...] MD Division of Hospitalist Medicine Inpatient Medical Services/[facility] [1] [2] atorvastatin, 40 mg, Oral, Nightly azaTHIOprine, 50 mg, Oral, Lunch clopidogrel, 75 mg, Oral, Daily gabapentin, 200 mg, Oral, Nightly heparin, 5,000 Units, SubCUTAneous, 2 times per day metoprolol tartrate, 25 mg, Oral, BID QUEtiapine, 25 mg, Oral, Nightly senna-docusate sodium, 2 tablet, Oral, Daily sodium chloride 0.9%, 5-40 mL, IntraVENous, q12h tamsulosin, 0.4 mg, Oral, Daily * Letty Meyer, PT - 11/28/2024 10:08 AM EDT Images from the original note were not included. PHYSICAL THERAPY [facility] Initial Evaluation Name/MRN: Franklin Burton ([id number]) Evaluation Date: 11/28/2024 Date of : 1945 Admission Date: 11/25/2024 5:45 AM Age: 79 y.o. Room/Bed: [facility] A Discharge Recommendation: Long Term Facility Equipment Needed: No Assessment IMPRESSION: Pt [...] disease due to type 2 diabetes mellitus ([facility]) 03/01/2023 Peritoneal dialysis catheter in situ (CMS/HCC) ([facility]) 03/01/2023 Periumbilical abdominal pain 03/01/2023 Motion sickness 12/24/2022 Arthralgia 12/02/2022 Bronchitis 12/02/2022 Chest pain 12/02/2022 Chronic back pain 12/02/2022 Diarrhea 12/02/2022 Epistaxis 12/02/2022 Fever 12/02/2022 Finding of above normal blood pressure 12/02/2022 Hearing loss 12/02/2022 Heartburn 12/02/2022 Intermittent claudication ([facility]) 12/02/2022 Obesity with body mass index 30 or greater 12/02/2022 Prediabetes 12/02/2022 Restless legs syndrome 12/02/2022 Viral upper respiratory tract infection 12/02/2022 Chronic neuropathic pain 11/28/2022 Pain, unspecified 10/25/2022 Ankle pain 08/29/2022 Other mechanical complication of surgically created arteriovenous fistula, initial encounter ([facility]) 08/21/2022 Coagulation defect, unspecified ([facility]) 08/20/2022 Abnormal echocardiography 08/05/2022 Allergy, unspecified, initial encounter 08/01/2022 Anaphylactic shock, unspecified, initial encounter 08/01/2022 ESRD (end stage renal disease) ([facility]) 08/01/2022 Anemia in chronic kidney disease 07/30/2022 Dialysis patient ([facility]) 07/30/2022 Noninfective gastroenteritis and colitis, unspecified 07/30/2022 Secondary hyperparathyroidism of renal origin ([facility]) 07/30/2022 Chronic systolic heart failure ([facility]) 06/03/2022 Neuropathy 03/26/2022 Heart failure ([facility]) 03/26/2022 Disease due to severe acute respiratory syndrome coronavirus 2 (SARS-CoV-2) 01/22/2022 Disorder of brain 01/22/2022 Fatigue 01/22/2022 Hyperkalemia 01/22/2022 Stage 3 chronic kidney disease (HCC) 01/22/2022 Arteriovenous fistula (CMS/HCC) (HCC) 07/25/2021 Stage 5 chronic kidney disease due to hypertension ([facility]) 02/20/2021 BPH with urinary obstruction 04/06/2020 Zach's granulomatosis with renal involvement ([facility]) 10/27/2019 Gastroesophageal reflux disease 10/21/2019 Hypertension 10/21/2019 Morbidly obese ([facility]) 10/21/2019 Iron deficiency anemia, unspecified 10/21/2019 Obstructive sleep apnea syndrome 10/20/2019 Avascular necrosis of bone of hip (CMS/HCC) ([facility]) 07/09/2019 Abdominal hernia 07/09/2019 Polyneuropathy due to other toxic agents ([facility]) 11/17/2017 Diverticulosis of large intestine without diverticulitis 08/22/2017 BPH with obstruction/lower urinary tract symptoms 07/24/2016 Adenomatous colon polyp 01/27/2016 Vitamin D deficiency 11/29/2015 Osteoporosis 10/09/2015 Granulomatosis with polyangiitis ([facility]) 12/30/2014 Compression fracture of L1 lumbar vertebra ([facility]) 12/30/2014 Medical Precautions: No active isolations Proper [...] Assist Receives Help From: Significant other Active Family Helper: Yes Prior Level of Function Prior Level [...] Score (No Stairs) : 14 [facility] Score: Walked 25 ft or more (i.e. [...] with least restrictive device and modified independence inorder to safely negotiate home. Start: 11/28/24 Expected [...] of Care supervision is transferred to a [facility] Services Physical Therapist. Goals and/or [...] 07/24/2016 no diabetes GERD (gastroesophageal reflux disease) [place] (hard of hearing) RIGHT EAR AND HAS [...] gastritis, duodenitis and esophagus WISDOM TOOTH EXTRACTION * José Miguel Lockwood RCP - 11/27/2024 10:47 PM EDT [facility] Respiratory Care Department Progress Note Comment or reasoning for refusal: Patient was seen in attempts to fulfill CPAP/BiPAP/AutoPAP order. Patient refused PAP therapy/studyat this time. Patient was educated on medical need and reasoning for physician order to ensure patient was making an informed medical decision. All of the patient's questions were answered at this time and patient was informed that if the patient changes their mind regarding wearing PAP to hit their call light or inform their nurse to contact Respiratory. [...] Respiratory in the care of this patient, * Fawad Robison MD - 11/27/2024 4:54 PM EDT Images from the original note were not included. Nephrology Progress Note Patient: Franklin Burton Room number: T2-207/T2-207 A Date of Admit: 11/25/2024 LOS: 2 days Referring physician: Fawad Ruiz MD Outpatient Motor Polarizer: [facility] Assessment / Plan Franklin Burton is a 79 y.o. male with a past medical history of ESRD on HD MWF at [facility], GPA, DM type 2, HTN, HFrEF, [...] call with any questions. Fawad Robison MD [facility] ([facility]) Office phone: [phone] Office fax: [phone] 11/27/2024 Subjective Patient was seen and examined [...] as of this encounter: 1.727 m (5' 7.99). Weight as of this encounter: 103 kg [...] present LABS Labs reviewed. Recent Labs 11/25/24 0711/26/2441911/26/24 0647 11/27/24 0315 WBC 6.3 6.5 -- 5.9 HGB 11.3* 11.6* 12.0 11.1* HCT 35.2* 35.8* -- 33.7* MCV 95.9 95.5 -- 93.6 PLT 114* 101* -- 114* Recent Labs 11/25/24 0711/26/24 0420 11/27/24 0315 ALT 13 10 9 [...] chloride, 50 mL/hr, Last Rate: 50 mL/hr (11/27/24210) * Cristi Dasilva MD - 11/27/2024 6:30 AM EDT ICU Progress Note Name: Franklin Burton : 1945(79 y.o.) Date: 11/27/24 Team: MICU Attending: Dr. Ruiz Subjective: Hospital Summary: 79 y/o M with PMHx ESRD on iHD, BPH, T2DM, Obesity, ROYAL, RLS, GPA, HFpEF (EF 50% on 11/25/24), chronic back pain with neuropathy who presented to [facility] as a transfer from outside facility for evaluationof AMS. Pt admitted to the hospitalist service with neurology consult. Plan is for EEG and MRI for further evaluation. However, the patient was notably too agitated for these studies to be completed.ICU consulted for admission for control of agitation. Interval Events: Overnight, patient became delirious and required 12.5 mg of Seroquel and was restarted on precedex.Also, he was complaining of abdominal discomfort so [...] Normal [] Scar/Lesion/Mass Inspection of teeth/lips/gums Dentition: [][place] Teeth []Dentures Lips/Gums: []Intact []Lesion Present Mucosa: [][place] []Moist []Dry Neck: External Appearance Overall Appearance: [...] 2.7 1.6* LFTs: Recent Labs 11/25/24 0711/26/24 04211/27/24 031 AST 22 25 27 ALT 13 10 9 PROT 6.8 6.5 6.3* ALBUMIN 3.7 3.4 3.3* BILITOT 0.6 0.8 1.2* ALKPHOS 81 81 83 Glucose: Recent Labs 11/25/24 0702 11/26/24 0032 11/26/24 0420 11/26/24 0555 11/27/24 0035 11/27/24 031 GLUCOSE 103 -- 108 -- -- 110 POCGLU -- 111* -- 104* 111* -- Procal: No results for input(s): PROCAL in the last 72 hours. CBC: Recent Labs 11/25/24 0702 11/26/24 0420 11/26/24 0647 11/27/24 0315 WBC 6.3 6.5 -- 5.9 HGB 11.3* 11.6* 12.0 11.1* HCT 35.2* 35.8* -- 33.7* PLT 114* 101* -- 114* MCV 95.9 95.5 -- 93.6 RDW 13.2 13.1 -- 13.1 ABGs: Recent Labs 11/26/24 0647 [id number] Nasal Cannula (LPM) Lactic Acid: No results for input(s): LACTATE in the last 72 hours. INR: No results for input(s): INR in the last 72 hours. Cardiac Injury Profile: No results for input(s): CKTOTAL, CKMB, TROPONINI in the last 72 hours. Labs in [...] COVID19 Legionella Ag: No results found for: LEGIONELLAPN Strep Ag: No results for input(s): STREPPNEUMO in the last 72 hours. Imaging- MR [...] performed physical exam. I reviewed the chart includingMAR, labs, and radiology and agree with the [...] DNR-CCA, ok for intubation Disposition: Transfer to [facility] Time spent preparing to see the patient, obtaining/reviewing separately obtained history, completing an appropriate medical examination of the patient, ordering medications/tests/procedures, documenting clinical information on the EMR, and/or coordinating care is a subsequent visit: 35 minutes (Level II). Fawad Ruiz MD Pulmonary and Critical Care Medicine Attending Pager #[phone] * Cristi Dasilva MD - 11/26/2024 5:37 PM EDT Family Communication Spoke with and daughter in the room. Updated them on neurology's thoughts that this is dialysis disequilibrium syndrome and attempted to explain what this is. Informed that we are stopping the EEG due to no seizure activity and we will call and update with MRI brain results. * Yana Pulido RD - 11/26/2024 3:31 PM EDT Nutrition Assessment Type and Reason [...] with altered mental status. Admitted for neurology evaluationand further work up however patient persistently agitated prohibiting further work up. CT head demonstrated chronic small vessel changes. Metabolic encephalopathy work up including ammonia, troponin,and B12 were normal. Neurology requesting MRI brain, cEEG monitoring however patient unable to cooperate and agitated prohibiting evaluation. Per reports patient treated with ativan however had not received any anti-psychotics while on the floor. ICU consulted for management of agitation. Pt calm this a.m. YARD OPERATOR evaluated today and recommends a pureed solids and Thin liquids and meds crushed in puree diet; pt is on same. Multiple staff in room, unable to interview pt. Estimated Daily Nutrient Needs: Energy Requirements Based On: Kcal/kg Weight Used for Energy Requirements: [place] Weight for Energy Calculation (kg): 70 kg Total Energy Requirements (kcals/day): 25-30 kcals/kg = 5829-1049 kcals/day Weight Used for Protein Requirements: [place] Weight in Kg Used for Protein Requirements: [...] Ordered Anthropometric Measures: Height: 172.7 cm (5' 7.99) Current Body Weight: 103 kg (227 lb 1.2 oz) [place] Body Weight (lbs) (Calculated): 154 lbs [place] Body Weight (Kg) (Calculated): 70 kg % [place] Body Weight (Calculated): 147.5 % BMI (kg/m2) [...] 101 kg (222 lb) LABS: Recent Labs 11/25/2470111/26/24419 NA 133* 130* K 4.6 5.6* CL 101 102 CO2 27 24 BUN 13 18 CREATININE 3.06* 3.67* GLUCOSE 103 108 CALCIUM 9.2 9.0 MG -- 2.0 PHOS -- 2.7 Cr - elevated, BUN is low for pt on HD, low Na+ Recent Labs 11/25/2470111/26/24419 AST 22 25 ALT 13 10 BILITOT [...] Planning: Too soon to determine Yana Pulido RD,LD,[facility] Contact: *[phone] or [facility] [1] atorvastatin, 40 mg, Oral, Nightly [...] 50 mL/hr, Last Rate: 50 mL/hr (11/25/24701) * Surendra Handley RCP - 11/26/2024 3:27 PM EDT [facility] Respiratory Care Department Progress Note Patient was seen in attempts to fulfill CPAP/BiPAP/AutoPAP order. Patient refused PAP therapy/studyat this time. Patient was educated on medical need and reasoning for physician order to ensure patient was making an informed medical decision. All of the patient's questions were answered at this time and patient was informed that if the patient changes their mind regarding wearing PAP to hit their call light or inform their nurse to contact Respiratory. [...] in the care of this patient, .3 * Nuha Hebert MD - 11/26/2024 12:24 PM EDT General Neurology Follow-up Date of Service: 11/26/2024 Chief complaint: Encephalopathy Subjective: Much improved in mentation today, in the ICU, off the Precedex drip Medications: Scheduled Meds:Scheduled Meds[1] Continuous Infusions:Continuous Meds[2] PRN Meds:PRN Meds[3] Allergies[4] Objective: Exam: BP 143/79 Pulse 90 Temp 36.6 C (97.9 F) Resp 21 Ht 5' 7.99 (1.727 m) Wt 228 lb (103 kg) SpO2 100% BMI 34.68 kg/m GENERAL APPEARANCE: Not in distress. HEENT: Normocephalic and atraumatic; PERRL, neck supple. Oropharynx unremarkable. NEURO: MENTAL STATUS: Patient awake but lethargic, he is oriented to self, place, month and the year whichis much improved from yesterday. Speech is fluent, with no aphasia or dysarthria CRANIAL NERVES: CN II: Visual field unremarkable CN III, IV, : Pupils equal, round and reactive to light and accommodation; extra ocular movementsfull and intact. CN V: Facial sensation normal. CN VII: No facial asymmetry. CN IX, X: Palate elevates symmetrically. CN XII: Tongue protrusion midline. MOTOR: Normal bulk. Tone normal and symmetrical throughout. Strength 5/5 in bilateral uppers, 4/5 in bilateral lowers Bicep Tricep Delt Grasp IP Q H DF PF EHL Left Right SENSATION: Sensation grossly intact to fine touch, COORDINATION: [id number] normal for age and symmetric. Data: LABS: [...] glucose meter Result Date: 11/26/2024 Performed by: [address] [address] CLIA ID: [id number] POCT glucose meter Result Date: 11/26/2024 Performed by: [address] [address] CLIA ID: [id number] XR chest 1 view Result Date: 11/25/2024 Patient Name: FRANKLIN BURTON : 1945 Exam Date/Time: 11/25/2024 16:04 Procedure: XR CHEST 1 VIEW Ordering Provider: WEINBERG LATHAReason For Exam: for mri CHEST X-RAY AP [...] 2D Simpsons Biplane is 50%. Normal wall motion.Right Ventricle: Not well visualized. Normal systolic function. [...] is usually at his baseline. There is alsosome concern of very slow onset of some [...] yelling his 's name and he was noticedthat he was significantly confused and his speech was not clear. He was taken to outside hospital where he had a CT scan of the head and CT angiogram of the head and neck. He was offered tenecteplasebut the family refused given similar episodes in the past. He was then transferred to [facility]. At [facility] on arrival, blood pressure 154/87, blood work [...] counseling/coordinating care and provided discussion regarding diagnostic i mpressions and the plan of care with the [...] See Comments Sneezing, itchy and watery eyes * Andrés Calhoun, PT - 11/26/2024 11:46 AM EDT Images from the original note were not included. PHYSICAL THERAPY [facility] Name/MRN: Franklin Burton ([id number]) Date: 11/26/2024 Attempt note Pt on iHD. Will re-attempt as able. Andrés Calhoun PT * Aleyda Martinez MD - 11/26/2024 11:21 AM EDT Images from the original note were not included. Nephrology Progress Note Patient: Franklin Burton Room number: T2-207/T2-207 A Date of Admit: 11/25/2024 LOS: 1 days Referring physician: Fawad Ruiz MD Outpatient Motor Polarizer: Tamia Marquez Assessment / Plan Franklin Burton is a 79 y.o. male with a past medical history of ESRD on HD MWF at [facility], GPA, DM type 2, HTN, HFrEF, [...] Robison covering this weekend. Aleyda Martinez MD [facility] ([facility]) Office phone: [phone] Office fax: [phone] 11/26/2024 Subjective Patient was seen and examined [...] as of this encounter: 1.727 m (5' 8). Weight as of this encounter: 103 kg [...] 50 mL/hr, Last Rate: 50 mL/hr (11/25/24701) * Carolin Taylor, JAILENE - 11/26/2024 9:07 AM EDT Images from the original note were not included. Speech-Language Pathology SPEECH LANGUAGE PATHOLOGY [facility] Dysphagia Treatment Note Patient Name: Franklin Burton [...] to removal so it can soak in carbon lamp cleaner. Patient with minimal dried secretions in posterior oral cavity. Oral care with suctioning is provided. Patient complains ofmouth pain and pain with swallow - posterior oral cavity does appear slightly red with dry tongue. Patient trials ice chips and thin liquids by spoon, cup sip, and small straw sip. Patient's swallowis slightly effortful, suspect secondary to pain. Patient [...] tolerance and advance as able. Continue acute YARD OPERATOR therapy per initial plan of care and [...] consistency to allow for safe consumption of dailymeals (Progressing) Start: 11/25/24 Expected End: 12/09/24 Patient will demonstrate safe swallowing Intervention/techniques (Progressing) Start: 11/25/24 Expected End: 12/09/24 Patient will participate in repeat clinical dysphagia evaluation (Completed) Start: 11/25/24 Expected End: 12/09/24 Resolved: 11/26/24 Therapy Time YARD OPERATOR Individual Minutes Time In: 847 Time Out: 902 Minutes: 15 JAILENE Trujillo * Cristi Dasilva MD - 11/26/2024 8:02 AM EDT ICU Progress Note Name: Franklin Burton : 1945(79 y.o.) Date: 11/26/24 Team: MICU Attending: Dr. Ruiz Subjective: Hospital Summary: 79 y/o M with PMHx ESRD on iHD, BPH, T2DM, Obesity, ROYAL, RLS, GPA, HFpEF (EF 50% on 11/25/24), chronic back pain with neuropathy who presented to [facility] as a transfer from outside facility for evaluationof AMS. Pt admitted to the hospitalist service with neurology consult. Plan is for EEG and MRI for further evaluation. However, the patient was notably too agitated for these studies to be completed.ICU consulted for admission for control of agitation. Interval Events: This morning, we were paged about the patient being somnolent while on precedex. Precedex was turned off and later in the morning patient was following commands and answering simple questions. He denies any chest pain, shortness of breath, and abdominal pain. He is oriented only to person. Later inthe afternoon, he became Aox4. Patients son was [...] Normal [] Scar/Lesion/Mass Inspection of teeth/lips/gums Dentition: [][place] Teeth []Dentures Lips/Gums: []Intact []Lesion Present Mucosa: [][place] []Moist []Dry Neck: External Appearance Overall Appearance: [...] within last 24 hours- BMP: Recent Labs 11/25/2470111/26/24419 NA 133* 130* K 4.6 5.6* CL 101 102 CO2 27 24 BUN 13 18 CREATININE 3.06* 3.67* CALCIUM 9.2 9.0 MG -- 2.0 PHOS -- 2.7 LFTs: Recent Labs 11/25/2470111/26/24 042 AST 22 25 ALT 13 10 PROT 6.8 6.5 ALBUMIN 3.7 3.4 BILITOT 0.6 0.8 ALKPHOS 81 81 Glucose: Recent Labs 11/25/2470111/26/24 0032 11/26/2441911/26/24 0555 GLUCOSE 103 -- 108 -- POCGLU -- 111* -- 104* Procal: No results for input(s): PROCAL in the last 72 hours. CBC: Recent Labs 11/25/2470111/26/2441911/26/24 0647 WBC 6.3 6.5 -- HGB 11.3* 11.6* 12.0 HCT 35.2* 35.8* -- PLT 114* 101* -- MCV 95.9 95.5 -- RDW 13.2 13.1 -- ABGs: Recent Labs 11/26/24 0647 [id number] Nasal Cannula (LPM) Lactic Acid: No results for input(s): LACTATE in the last 72 hours. INR: No results for input(s): INR in the last 72 hours. Cardiac Injury Profile: No results for input(s): CKTOTAL, CKMB, TROPONINI in the last 72 hours. Labs in [...] COVID19 Legionella Ag: No results found for: LEGIONELLAPN Strep Ag: No results for input(s): STREPPNEUMO in the last 72 hours. Imaging- XR [...] performed physical exam. I reviewed the chart includingMAR, labs, and radiology and agree with the [...] alert, remains on precedex 0.6. On cEEG. Non- labored breathing otherwise in no acute distress. Assessment [...] Pulmonary and Critical Care Medicine Attending Pager #[phone] * Erasmo Singh DO - 11/25/2024 5:46 PM EDT I spoke with family at bedside (, adult son, and [id number]) as well as daughter via telephone, all of whom confirm that the patient would want to be DNR-CCA, OK for intubation & ICU transfer. Code status updated. * JAILENE Medellin - 11/25/2024 3:53 PM EDT Images from the original note were not included. Speech-Language Pathology SPEECH LANGUAGE PATHOLOGY [facility] Bedside Swallow Evaluation Patient Name: Franklin Burton Evaluation Date: 11/25/2024 Date of : 1945 Admission Date: 11/25/2024 5:45 AM Age: 79 y.o. Room/Bed: [facility] A IMPRESSION: S/s oropharyngeal dysphagia. No overt [...] required. Pt would benefit from skilled acute YARD OPERATOR services to ensure patient tolerance of the [...] be evaluated. Dysphagia History: No history of YARD OPERATOR services in EMR with retrospective chart review [...] (HCC) 03/01/2023 Peritoneal dialysis catheter in situ (CMS/[facility]) ([facility]) 03/01/2023 Periumbilical abdominal pain 03/01/2023 Motion sickness 12/24/2022 Arthralgia 12/02/2022 Bronchitis 12/02/2022 Chest pain 12/02/2022 Chronic back pain 12/02/2022 Diarrhea 12/02/2022 Epistaxis 12/02/2022 Fever 12/02/2022 Finding of above normal blood pressure 12/02/2022 Hearing loss 12/02/2022 Heartburn 12/02/2022 Intermittent claudication ([facility]) 12/02/2022 Obesity with body mass index 30 or greater 12/02/2022 Prediabetes 12/02/2022 Restless legs syndrome 12/02/2022 Viral upper respiratory tract infection 12/02/2022 Chronic neuropathic pain 11/28/2022 Pain, unspecified 10/25/2022 Ankle pain 08/29/2022 Other mechanical complication of surgically created arteriovenous fistula, initial encounter ([facility]) 08/21/2022 Coagulation defect, unspecified ([facility]) 08/20/2022 Abnormal echocardiography 08/05/2022 Allergy, unspecified, initial encounter 08/01/2022 Anaphylactic shock, unspecified, initial encounter 08/01/2022 ESRD (end stage renal disease) ([facility]) 08/01/2022 Anemia in chronic kidney disease 07/30/2022 Dialysis patient ([facility]) 07/30/2022 Noninfective gastroenteritis and colitis, unspecified 07/30/2022 Secondary hyperparathyroidism of renal origin ([facility]) 07/30/2022 Chronic systolic heart failure ([facility]) 06/03/2022 Neuropathy 03/26/2022 Heart failure ([facility]) 03/26/2022 Disease due to severe acute respiratory syndrome coronavirus 2 (SARS-CoV-2) 01/22/2022 Disorder of brain 01/22/2022 Fatigue 01/22/2022 Hyperkalemia 01/22/2022 Stage 3 chronic kidney disease ([facility]) 01/22/2022 Arteriovenous fistula ([facility]) ([facility]) 07/25/2021 Stage 5 chronic kidney disease due to hypertension ([facility]) 02/20/2021 BPH with urinary obstruction 04/06/2020 Zach's granulomatosis with renal involvement ([facility]) 10/27/2019 Gastroesophageal reflux disease 10/21/2019 Hypertension 10/21/2019 [...] 12/30/2014 Compression fracture of L1 lumbar vertebra ([facility]) 12/30/2014 History of Present Illness: 79 y.o. male with PMH of granulomatosis with polyangiitis, ESRD on hemodialysis, HTN, neuropathy, and pre-diabetes who presents with the chief Complaint of: altered mentalstatus and confusion following a dialysis session. According to the patient's son, [id number], and , Mr. Burton returned from a routine dialysis session on 11/24 and laid down to rest. Soonafter, he began yelling his 's name and was observed having his knees give out to collapse. He did not hit his head but was nauseous, severely confused, and his speech was not clear. At baseline,he speaks fluently with only occasional incomprehensibility of content. He is able to drive himselfto and from dialysis appointments but uses a wheelchair and walker to ambulate. The patient was taken to [facility], where the stroke neurologist determined that he was not having any LVO based on CTA and did not need TNK. The team at [facility] felt this may have been related to fluid shift in relation to dialysis and transferred patient to [facility] for further imaging due to non-availability at [facility]. Of note, Mr. Burton has presented with [...] when he did not want any further. Acceptanceimproved with visualization of spoon bolus. Did not always open his mouth enough. Slower transit ofbolus of applesauce (1/2 tsp x2 bites) 3 ice chips (spit out 1). Pharyngeal Phase Hyolaryngeal excursion clinically appears adequate yet delayed at times per palpation. 1-2 swallowspalpated per bolus, likely indicative of adequate pharyngeal [...] time. Talking about hay stacks and a kluti kaah. Encounter Problems Encounter Problems (Active) Swallowing Patient will tolerate the least restrictive diet consistency to allow for safe consumption of dailymeals Start: 11/25/24 Expected End: 12/09/24 Patient will demonstrate safe swallowing Intervention/techniques Start: 11/25/24 Expected End: 12/09/24 Patient will participate in repeat clinical dysphagia evaluation Start: 11/25/24 Expected End: 12/09/24 Therapy Time YARD OPERATOR Individual Minutes Time In: 1504 Time Out: 1521 Minutes: 17 JAILENE Medellin [1] Past Medical History: Diagnosis Date Allergic rhinitis BPH (benign prostatic hyperplasia) BPH (benign prostatic hyperplasia) CHF (congestive heart failure) (HCC) Chronic back pain Chronic kidney disease Chronic systolic heart failure (HCC) 06/05/2020 Compression fracture spring 2014 T12 Diabetes mellitus without complication (CMS/HCC) ([facility]) 07/24/2016 no diabetes GERD (gastroesophageal reflux disease) [place] (hard of hearing) RIGHT EAR AND HAS [...] gastritis, duodenitis and esophagus WISDOM TOOTH EXTRACTION * Kya Mcfarland, DENISHA - SET DECORATOR - 11/25/2024 2:41 PM EDT At bedside with family to discuss pt's evolving mental status, agitation, and reports of pain. Pt has chronic muscular back pain with neuropathy for which he is chronically treated with acetaminophen, gabapentin, and pregabalin. Pt is currently NPO and unable to take any of these medications due tohis mental status. Given the concern for pt's [...] to allow the patient to wake on hisown and our concern for iatrogenically worsening his mental status. I also discussed these concernswith the RN. We decided to try IV acetaminophen for now. We will try a dose of haldol to see if this can facilitate testing to help narrow our diagnosis and therefore treatment plan. EEG and MRI needto be planned accordingly. If this dose of haldol is ineffective, a consult to ICU can be considered so that precedex can be used for sedation without affecting his neuro exam. This plan was discussed in consultation with Dr. Hebert. DENISHA Castillo SET DECORATOR/BLOOD OR BLOOD BANK TECHNICIAN * Flor Stoddard, PT - 11/25/2024 10:53 AM EDT Physical Therapy Evaluation and Treatment Order Received. Pt is out of the room at this time. Will continue to follow. documented in this [facility]07-15-2025 NoteOCCUPATIONAL THERAPY [facility] Initial Evaluation Name/MRN: Franklin Burton ([id number]) Evaluation Date: 11/30/2024 Date of : 1945 Admission Date: 11/25/2024 5:45 AM Age: 79 y.o. Room/Bed: W3332/W3332 A Discharge Recommendation: IP Rehab Other: Continue [...] of surgically created arteriovenous fistula, initial encounter ([facility]) 08/21/2022 Coagulation defect, unspecified ([facility]) 08/20/2022 Abnormal echocardiography 08/05/2022 Allergy, unspecified, initial encounter 08/01/2022 Anaphylactic shock, unspecified, initial encounter 08/01/2022 ESRD (end stage renal disease) ([facility]) 08/01/2022 Anemia in chronic kidney disease 07/30/2022 Dialysis patient ([facility]) 07/30/2022 Noninfective gastroenteritis and colitis, unspecified 07/30/2022 Secondary hyperparathyroidism of renal origin ([facility]) 07/30/2022 Chronic systolic heart failure ([facility]) 06/03/2022 Neuropathy 03/26/2022 Heart failure ([facility]) 03/26/2022 Disease due to severe acute respiratory syndrome coronavirus 2 (SARS-CoV-2) 01/22/2022 Disorder of brain 01/22/2022 Fatigue 01/22/2022 Hyperkalemia 01/22/2022 Stage 3 chronic kidney disease (HCC) 01/22/2022 Arteriovenous fistula ([facility]) ([facility]) 07/25/2021 Stage 5 chronic kidney disease due to hypertension ([facility]) 02/20/2021 BPH with urinary obstruction 04/06/2020 Zach's granulomatosis with renal involvement ([facility]) 10/27/2019 Gastroesophageal reflux disease 10/21/2019 Hypertension 10/21/2019 Morbidly obese ([facility]) 10/21/2019 Iron deficiency anemia, unspecified 10/21/2019 Obstructive sleep apnea syndrome 10/20/2019 Avascular necrosis of bone of hip ([facility]) ([facility]) 07/09/2019 Abdominal hernia 07/09/2019 Polyneuropathy due to other toxic agents ([facility]) 11/17/2017 Diverticulosis of large intestine without diverticulitis 08/22/2017 BPH with obstruction/lower urinary tract symptoms 07/24/2016 Adenomatous colon polyp (more content not included)...[facility] 11-30-2024 NoteHospitalist Discharge Summary Franklin Burton : 1945 Admit date: 11/25/2024 Discharge date: 11/30/2024 Admitting Physician: Flor Jensen MD Primary Care Physician: Matilde Noguera MD Visit Status: IP Code Status: DNR-CCA BRIEF HOSPITAL COURSE: PER PRIOR ICU course per Dr. Dasilva: 79 y/o M with PMHx ESRD on iHD, BPH, T2DM, Obesity, ROYAL, RLS, GPA, HFpEF (EF 50% on 11/25/24), chronic back pain with neuropathy who presented to [facility] as a transfer from outside facility [...] transfer to floor later in the day. Pt transferred to [facility] 11/28. Neurocritical care advised against LP. YARD OPERATOR eval ordered. EEG performed 11/27, interpreted as Continuous diffuse mild slowing is seen not responsive to stimulation...findings are supportive of a stable mild global encephalopathy non-specific as to etiology. SNF was recommended however patient wanting to go home with family. Geriatrics outpatient as well 11/30 and made recommendations for home-going medications and adjustments. Was discontinued off Lyrica and started on gabapentin. Daughter to continue helping patient with his medication management. New PCP appointment set up, referral sent to [facility] near [facility]. They are also to follow-up with nephrology [...] discharged in stable condition to Home with HH. Greater than 31 minutes spent discharging the patient and coming up with patient discharge plan. Vitals: BP (!) 174/79 (BP Location: Right arm) Pulse 91 Temp 36.7 ?C (98.1 ?F) (Temporal) Resp 20 Ht 5' 7.99 (1.727 m) Wt 228 lb (103 kg) [...] Content: Thought content normal. LABS: Recent Labs 11/28/24 02011/29/248 11/30/24 0545 NA 134* 134* 135* K 4.1 3.8 4.0 CL 105 106 105 CO2 22* 21* 25 BUN 26* 31* 14 CREATININE 3.52* 4.03* 2.91* GLUCOSE 97 94 108 CALCIUM 8.8 8.8 9.5 Recent Labs 11/28/24 0201 11/29/24 0348 11/30/24 0545 WBC 4.6 4.2 5.2 RBC 3.41* 3.46* 3.89* HGB 10.5* 10.7* 12.0* HCT 31.9* 32.1* 36.0* MCV 93.5 92.8 92.5 MCH 30.8 30.9 30.8 MCHC 32.9 33.3 33.3 RDW 13.1 12.9 13.0 PLT 118* 123* 152 MPV 9.8 10.1 9.5 Discharge Medications: Medication List (more content not included)...[facility] [id number] Hospital course Narrative* Aziza Christianson MD - 11/30/2024 8:51 AM EDT Hospitalist Discharge Summary Franklin Burton : 1945 Admit date: 11/25/2024 Discharge date: 11/30/2024 Admitting Physician: Flor Jensen MD Primary Care Physician: Matilde Noguera MD Visit Status: IP Code Status: DNR-CCA BRIEF HOSPITAL COURSE: PER PRIOR ICU course per Dr. Dasilva: 79 y/o M with PMHx ESRD on iHD, BPH, T2DM, Obesity, ROYAL, RLS, GPA, HFpEF (EF 50% on 11/25/24), chronic back pain with neuropathy who presented to [facility] as a transferfrom outside facility for evaluation of AMS. Pt admitted to the hospitalist service with neurology c onsult. Plan is for EEG and MRI for [...] plan for potential transfer to floor later inthe day. Pt transferred to [facility] 11/28. Neurocritical care advised against LP. YARD OPERATOR eval ordered. EEG performed 11/27, interpreted as Continuous diffuse mild slowing is seen not responsive to stimulation...findings are supportive of a stable mild global encephalopathy non-specific as to etiology. SNF was recommended however patient wanting to go home with family. Geriatrics outpatient as well 11/30 and made recommendations for home-going medications and adjustments. Was discontinued off Lyricaand started on gabapentin. Daughter to continue helping patient with his medication management. NewP appointment set up, referral sent to [facility] [place] near family. They are also to follow-up [facility] regarding his abnormal [...] above and medication adjustments below in med rec.Thepatient is discharged in improved and stable condition. [...] (98.1 F) (Temporal) Resp 20 Ht 5' 7.99 (1.727 m) Wt 228 lb (103 kg) [...] 108 CALCIUM 8.8 8.8 9.5 Recent Labs 11/28/2420011/29/2434711/30/24 0545 WBC 4.6 4.2 5.2 RBC 3.41* [...] MG tablet Generic drug: acetaminophen Recommended [facility]-[address]: [address] [facility] [id number] Kyler Garcia MD [address], [place] [address] Follow up on 01/13/2025 Follow up from hospital stay at 11:00 AM NEW PATIENT APPOINTMENT Complexity of Follow up: [] Moderate Complexity: follow up within 7-14 calendar days (37420) [x] Severe Complexity: follow up within 7 calendar days (32515) Follow up Testing, Pending results or Referrals [...] Aziza Christianson MD Division of Hospitalist Medicine [facility] 11/30/2024, 8:51 AM [1] Past Medical History: Diagnosis Date Allergic rhinitis BPH (benign prostatic hyperplasia) BPH (benign prostatic hyperplasia) CHF (congestive heart failure) (HCC) Chronic back pain Chronic kidney disease Chronic systolic heart failure (HCC) 06/05/2020 Compression fracture spring 2014 T12 Diabetes mellitus without complication (HCC) 07/24/2016 no diabetes GERD (gastroesophageal reflux disease) [place] (hard of hearing) 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 Hypertension Indwelling Osorio catheter present Obesity ROYAL (obstructive sleep apnea) Osteoarthritis Restless legs syndrome Status post right hip replacement 03/19/2016 Urge incontinence 07/24/2016 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[facility]) documented in this [facility]07-15-2025 Plan of care note* Care Plan - Madisyn Pereira RN - 11/30/2024 2:43 AM EDT Problem: Knowledge Deficit Goal: Patient/family/caregiver demonstrates understanding [...] risk of aspiration is minimized Outcome: Progressing [facility] [id number] Plan of care note* Care Plan - Glen De La O RN - 11/29/2024 7:26 PM EDT Problem: Knowledge Deficit Goal: Patient/family/caregiver demonstrates understanding [...] Goal: Nutritional status is improving Outcome: Progressing [facility] [id number] Note* Care Coordination - Kelin Pulido RN - 11/29/2024 3:30 PM EDT Care Management Progress Note Short Medical why [...] 4.6 TCC to follow for discharge needs. [facility] [id number] Note* Care Coordination - Kelin Pulido RN - 11/29/2024 3:30 PM EDT Care Management Progress Note Short Medical why [...] 4.6 TCC to follow for discharge needs. [facility] [id number] NoteCare Management Progress Note Short Medical why still [...] 4.6 TCC to follow for discharge needs. [facility]07-14-2025 Nurse Note* Devante Tran - 11/29/2024 2:15 PM EDT Patient Name: Franklin Burton Patient : 1945 Acct: [id number] Date of Admission: 11/25/2024 Room/Bed: [facility] A Code Status: DNR-CCA Allergies: Allergies[1] Diagnosis: [...] Diminished -- Soft;Rounded;Distended Active Right upper extremity;Left upperextremity;Right lower extremity;Left lower extremity Non- pitting -- None Non-pitting Non-pitting 11/29/24 1240 -- -- -- Diminished -- Soft;Rounded;Distended Active Left upper extremity;Right upperextremity;Left lower extremity;Right lower extremity Non- pitting None None Non-pitting Non-pitting 11/29/24 1349 Alert (0) Regular Nasal cannula Diminished Warm;Dry Soft;Rounded Audible Right lower extremity;Left lower extremity -- -- -- Non-pitting Non-pitting 11/29/24 1811 Alert (0) Regular -- -- -- -- -- -- -- -- -- -- -- Labs Lab Results Component Value Date/Time WBC 4.2 11/29/2024 0348 HGB 10.7 (L) 11/29/2024 0348 HGB 12.0 11/26/2024 0647 HCT 32.1 (L) 11/29/20248 PLT 123 (L) 11/29/2024 034 NA 134 (L) 11/29/2024347 K 3.8 11/29/2024347 CL 106 11/29/2024347 CO2 21 (L) 11/29/2024347 BUN 31 (H) 11/29/2024347 CREATININE 4.03 (H) 11/29/2024347 CREATININE 3.20 (H) 04/09/2021 1352 CALCIUM 8.8 11/29/2024347 PHOS 2.6 11/29/2024347 IV Drips and Rate/Dose Continuous Meds[3] Safety - Before each treatment: Dialysis Machine No.: [id number] RO Machine Number: [id number] Dialyzer Lot No.: [id number] Tubing Lot Number: [id number] All Connections Secure: Yes Venous Parameters Set: Yes Arterial Parameters Set: Yes NS Bag: Yes Saline Line Double Clamped: Yes Dialyzer: Nipro Prime Volume (mL): 200 mL RO Machine Number: [id number] RO Machine Log Sheet Completed: Yes Machine Alarm Self Test: Completed, Passed (11/29/24 1313) Air Foam Detector: Tested, Proper Function, pH Reading Extracorporeal Circuit Tested for Integrity: Yes Machine Conductivity: 13.7 Manual Conductivity: 13.6 Manual Ph: 7.2 Bleach Test (Neg): Yes Bath Temperature: 36 C (96.8 F) Conductivity Meter Serial #: [id number] Machine Functioning Alarm Free? Yes Dialysis Bath: K+ (Potassium): 2 Ca+ (Calcium): 2.5 Na+ (Sodium): 138 HCO3 (Bicarb): 33 Bicarbonate Concentrate Lot No.: [id number] Acid Concentrate Lot No.: [id number] Chlorine Testing - Before each treatment and every 4 hours: Time On: 1411 Time Off: 1811 Treatment Goal: 2L Weight Height: 172.7 cm (5' 7.99) (11/26/24 1123) Weight: 103 kg (228 lb) (11/25/241335) BMI (Calculated): 34.68 (11/25/241335) 1st check: less than 0.1 ppm at: [...] within reach and educated on use of calllight 11/29/24 1411 200 mL/min 630 ml/hr -20 [...] 500 Yes pt alert, lines secure, removed 19411/29/25 1730 400 mL/min 630 ml/hr -150 mmHg 170 mmHg 80 500 Yes pt alert, stable, nremoved 210911/29/24 1745 400 mL/min 630 ml/hr -150 mmHg 170 mmHg 80 500 Yes pt alert, removed 225911/29/24 1800 400 mL/min 630 ml/hr -150 mmHg 170 mmHg 80 500 Yes pt alert, stable, removed 241011/29/24 181 -- -- -- -- -- -- Yes [...] (Dex restarted) Notification Date: 11/27/24 Notification Time: 030 Provider Role: Resident Method of Communication: Secure [...] obstruction Avascular necrosis of bone of hip ([facility]) ([facility]) Gastroesophageal reflux disease Polyneuropathy due to other toxic agents ([facility]) Diverticulosis of large intestine without diverticulitis Zach's granulomatosis with renal involvement ([facility]) Hypertension Granulomatosis with polyangiitis ([facility]) Adenomatous colon polyp Stage 5 chronic kidney disease due to hypertension ([facility]) BPH with obstruction/lower urinary tract symptoms Obstructive sleep apnea syndrome Compression fracture of L1 lumbar vertebra ([facility]) Arteriovenous fistula ([facility]) ([facility]) Vitamin D deficiency Osteoporosis Morbidly obese ([facility]) Iron deficiency anemia, unspecified Abdominal hernia Neuropathy Heart failure ([facility]) Abnormal echocardiography Ankle pain Arthralgia Bronchitis Chest pain Chronic back pain Chronic systolic heart failure ([facility]) Diarrhea Disease due to severe acute respiratory syndrome coronavirus 2 (SARS-CoV-2) Disorder of brain Epistaxis Fatigue Fever Finding of above normal blood pressure Hearing loss Heartburn Hyperkalemia Intermittent claudication ([facility]) Obesity with body mass index 30 or greater Prediabetes Restless legs syndrome Stage 3 chronic kidney disease ([facility]) Viral upper respiratory tract infection Chronic neuropathic pain Motion sickness Allergic rhinitis Allergy, unspecified, initial encounter Anaphylactic shock, unspecified, initial encounter Anemia in chronic kidney disease Chronic insomnia Chronic maxillary sinusitis Coagulation defect, unspecified ([facility]) Dialysis patient ([facility]) ESRD (end stage renal disease) ([facility]) 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 ([facility]) Malnutrition of mild degree ([facility]) Nasal obstruction Nasal septal perforation Noninfective gastroenteritis and colitis, unspecified Other mechanical complication of surgically created arteriovenous fistula, initial encounter ([facility]) Pain, unspecified Peritoneal dialysis catheter in situ ([facility]/HCC) ([facility]) Periumbilical abdominal pain Secondary hyperparathyroidism of renal origin ([facility]) Sensorineural hearing loss (SNHL), bilateral Swelling of upper extremity Tinnitus, bilateral Tremor Stroke-like symptom Stroke-like symptoms [3] [facility] [id number] Nurse Note* Devante Tran - 11/29/2024 2:15 PM EDT Patient Name: Franklin Burton Patient : 1945 Acct: [id number] Date of Admission: 11/25/2024 Room/Bed: [facility] A Code Status: DNR-CCA Allergies: Allergies[1] Diagnosis: [...] Diminished -- Soft;Rounded;Distended Active Right upper extremity;Left upperextremity;Right lower extremity;Left lower extremity Non- pitting -- None Non-pitting Non-pitting 11/29/24 1240 -- -- -- Diminished -- Soft;Rounded;Distended Active Left upper extremity;Right upperextremity;Left lower extremity;Right lower extremity Non- pitting None None Non-pitting Non-pitting 11/29/24 1349 Alert (0) Regular Nasal cannula Diminished Warm;Dry Soft;Rounded Audible Right lower extremity;Left lower extremity -- -- -- Non-pitting Non-pitting 11/29/24 1811 Alert (0) Regular -- -- -- -- -- -- -- -- -- -- -- Labs Lab Results Component Value Date/Time WBC 4.2 11/29/2024347 HGB 10.7 (L) 11/29/2024 034 HGB 12.0 11/26/2024 0647 HCT 32.1 (L) 11/29/2024347 PLT 123 (L) 11/29/2024347 NA 134 (L) 11/29/2024347 K 3.8 11/29/2024347 CL 106 11/29/2024347 CO2 21 (L) 11/29/2024347 BUN 31 (H) 11/29/2024347 CREATININE 4.03 (H) 11/29/2024347 CREATININE 3.20 (H) 04/09/2021 1352 CALCIUM 8.8 11/29/20248 PHOS 2.6 11/29/2024347 IV Drips and Rate/Dose Continuous Meds[3] Safety - Before each treatment: Dialysis Machine No.: [id number] RO Machine Number: [id number] Dialyzer Lot No.: [id number] Tubing Lot Number: [id number] All Connections Secure: Yes Venous Parameters Set: Yes Arterial Parameters Set: Yes NS Bag: Yes Saline Line Double Clamped: Yes Dialyzer: Nipro Prime Volume (mL): 200 mL RO Machine Number: [id number] RO Machine Log Sheet Completed: Yes Machine Alarm Self Test: Completed, Passed (11/29/24 1313) Air Foam Detector: Tested, Proper Function, pH Reading Extracorporeal Circuit Tested for Integrity: Yes Machine Conductivity: 13.7 Manual Conductivity: 13.6 Manual Ph: 7.2 Bleach Test (Neg): Yes Bath Temperature: 36 C (96.8 F) Conductivity Meter Serial #: [id number] Machine Functioning Alarm Free? Yes Dialysis Bath: K+ (Potassium): 2 Ca+ (Calcium): 2.5 Na+ (Sodium): 138 HCO3 (Bicarb): 33 Bicarbonate Concentrate Lot No.: [id number] Acid Concentrate Lot No.: [id number] Chlorine Testing - Before each treatment and every 4 hours: Time On: 141 Time Off: 1810 Treatment Goal: 2L Weight Height: 172.7 cm (5' 7.99) (11/26/24 1123) Weight: 103 kg (228 lb) (11/25/24 133) BMI (Calculated): 34.68 (11/25/24 1336) 1st check: [...] within reach and educated on use of calllight 11/29/24 1411 200 mL/min 630 ml/hr -20 [...] 80 500 Yes pt alert, stable, removed 241011/29/241810 -- -- -- -- -- -- Yes [...] Response: See orders (Dex restarted) Notification Time: 0303 Handoff complete and report given to Primary [...] patient (HCC) ESRD (end stage renal disease) ([facility]) 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 ([facility]) Malnutrition of mild degree ([facility]) Nasal obstruction Nasal septal perforation Noninfective gastroenteritis and colitis, unspecified Other mechanical complication of surgically created arteriovenous fistula, initial encounter ([facility]) Pain, unspecified Peritoneal dialysis catheter in situ (CMS/HCC) ([facility]) Periumbilical abdominal pain Secondary hyperparathyroidism of renal origin ([facility]) Sensorineural hearing loss (SNHL), bilateral Swelling of upper extremity Tinnitus, bilateral Tremor Stroke-like symptom Stroke-like symptoms [3] * Daniel Merlos RN - 11/26/2024 3:18 PM EDT 2L removed with tx, less than 10min [...] in ICU/ED $ IP Hemodialysis Charge Hemodialysis * Katheryn Wong RN - 11/25/2024 11:41 AM EDT [address] Weinberg after pt seen thrashing about in bed seeming restless. Family reports pt does have restless leg syndrome, and also requested that he have something to aid in his level of comfort. 0843 Dr. Weinberg stated he would see the patient, and this RN responded Ok, he is quite uncomfortable so I hope that is soon. 0906 Dr. Weinberg put in for seroquel [...] it was already given documented in this [facility]07-14-2025 NoteHospitalist Progress Note - [facility] - [employer] ([facility]) 11/29/2024 1:27 PM [phone]: Please page me for patient care issues. [phone]: Please page [facility] Hospitalist - [facility] for any issues. Subjective and Objective: Admit Date: 11/25/2024 PCP: Matilde Noguera MD No chief complaint on file. Hospital course: ICU course per Dr. Dasilva: 79 y/o M with PMHx ESRD on iHD, BPH, T2DM, Obesity, ROYAL, RLS, GPA, HFpEF (EF 50% on 11/25/24), chronic back pain with neuropathy who presented to [facility] as a transfer from outside facility [...] transfer to floor later in the day. Pt transferred to [facility] 11/28. Neurocritical care advised against LP. YARD OPERATOR eval ordered for dysphagia, diet advanced with improvement in encephalopathy. MRI brain 11/26 with probable chronic ischemic and atrophic changes. EEG performed 11/27, interpreted as Continuous diffuse mild slowing is seen not responsive to stimulation...findings are supportive of a stable mild global encephalopathy non-specific as to etiology. Neuro was concerned for dialysis disequilibrium syndrome, [...] arrange transportation. DC in AM; family wants [facility] Adult diet Dysphagia - Minced and [...] [Urine:100 (0 mL/kg/hr)] Weight: 103.4 kg @IODETAILS@ @[email or web address]@ Medications: Continuous Meds[1] Scheduled Meds[2] Recent Labs 11/27/2431411/28/2420011/29/24 0348 WBC 5.9 4.6 4.2 HGB 11.1* 10.5* 10.7* PLT 114* 118* 123* Recent Labs 11/27/2431411/28/2420011/29/24 034 NA 136 134* 134* K 3.9 4.1 3.8 CL 103 105 106 CO2 24 22* 21* BUN 16 26* 31* CREATININE 2.84* 3.52* 4.03* GLUCOSE 110 97 94 Recent Labs 11/27/2431411/28/2420011/29/248 AST 27 31 35* ALT 9 16 25 BILITOT 1.2* 0.8 0.9 ALKPHOS 83 82 91 No results found for: TRIG, HDL, LDLCALC, CHOL No results found for: PHART, PO2ART, FCA5SJB No results for input(s): INR in the last 72 hours. No results for input(s): CKTOTAL, CKMB, TROPONINI in the last 72 hours. No results for input(s): DDIMER in the last 72 elías (more content not included)...[facility] [id number] Note* Care Coordination - Loree Oneil RN - 11/29/2024 12:15 PM EDT Met with patient, Kaley and daughter Leonarda discussed patient would like a new PCP did not have aPCP in mind. Scheduled with [facility] in [place]. Plan of Treatment Plan of Treatment - Upcoming Encounters Upcoming Encounters Date Type Department Care Team (Latest Contact Info) Description 01/13/2025 11:00 AM EDT Office Visit Family Medicine [place] [address], [place] [phone] Kyler Garcia MD [address] [place] [address] [facility] [id number] Note* Care Coordination - Loree Oneil RN - 11/29/2024 12:15 PM EDT Met with patient, Kaley and daughter Leonarda discussed patient would like a new PCP did not have aPCP in mind. Scheduled with [facility] in [place]. Plan of Treatment Plan of Treatment - Upcoming Encounters Upcoming Encounters Date Type Department Care Team (Latest Contact Info) Description 01/13/2025 11:00 AM EDT Office Visit Family Medicine [place] [address], [place] [phone] Kyler Garcia MD [address], [place] [phone] [facility] [id number] Note* Home Care - Dory Pereyra RN - 11/29/2024 11:49 AM EDT [facility] [employer] is agency of choice. [facility] unable to service as patient is out of service area. Educated patient and daughter Leonarda on Home Care and services available. Patient is agreeable to receiving home care services at this time. Patient was given choice of home care agencies available inthe area and is agreeable to having referrals made with agencies that staff the patients service location. Referrals have been sent via [facility]. Liaison to discuss available agencies to accept case with patient upon receiving responses. [facility] [id number] Note* Home Care - Dory Pereyra RN - 11/29/2024 11:49 AM EDT [facility] [employer] is agency of choice. [facility] unable to service as patient is out of service area. Educated patient and daughter Leonarda on Home Care and services available. Patient is agreeable to receiving home care services at this time. Patient was given choice of home care agencies available inthe area and is agreeable to having referrals made with agencies that staff the patients service location. Referrals have been sent via [employer]. Liaison to discuss available agencies to accept case with patient upon receiving responses. [facility] [id number] Note* Home Care - Dory Pereyra RN - 11/29/2024 11:41 AM EDT Relations Mgr following case for Discharge Needs. [facility] [id number] Note* Home Care - Dory Pereyra RN - 11/29/2024 11:41 AM EDT Relations Mgr following case for Discharge Needs. [facility] [id number] Note* Care Coordination - Kelin Pulido RN - 11/29/2024 11:30 AM EDT Care Management Progress Note Short Medical why still here: Pt admitted with stroke like symptoms. Stroke team consulted. Stroke workup negative. Worsening Cognition and ADL decline suspected to be chronic in nature. Met with pt's spouse Ada and daughter Leonarda who were at bedside. Introduced self and role. Discussed possible SNF options Gave patient SNF list. Consulted law professor. Fresh Work Wrapper Layer consulted to assistfamily with finding new PCP. Pt is from home with family. Planned Discharge Disposition: Long Term Facility Barriers/Today we still Wait: Clinical stability Length of Stay (Days): 4 GMLOS: 4.6 TCC to follow for discharge needs. [id number]* Care Coordination - Kelin Pulido RN - 11/29/2024 11:30 AM EDT Care Management Progress Note Short Medical why still here: Pt admitted with stroke like symptoms. Stroke team consulted. Stroke workup negative. Worsening Cognition and ADL decline suspected to be chronic in nature. Met with pt's spouse Kaley and daughter Leonarda who were at bedside. Introduced self and role. Discussed possible SNF options Gave patient SNF list. Consulted law professor. Fresh Work Wrapper Layer consulted to assistfamily with finding new PCP. Pt is from home with family. Planned Discharge Disposition: Long Term Facility Barriers/Today we still Wait: Clinical stability Length of Stay (Days): 4 GMLOS: 4.6 TCC to follow for discharge needs. T [id number] NoteCare Management Progress Note Short Medical why still here: Pt admitted with stroke like symptoms. Stroke team consulted. Stroke workup negative. Worsening Cognition and ADL decline suspected to be chronic in nature. Met with pt's spouse Kaley and daughter Leonarda who were at bedside. Introduced self and role. Discussed possible SNF options Gave patient SNF list. Consulted law professor. Fresh Work Wrapper Layer consulted to assist family with finding new PCP. Pt is from home with family. Planned Discharge Disposition: Long Term Facility Barriers/Today we still Wait: Clinical stability Length of Stay (Days): 4 GMLOS: 4.6 TCC to follow for discharge needs. [facility]07-14-2025 NoteNephrology Progress Note Patient: Franklin Burton Room number: W3-332/W3-332 A Date of Admit: 11/25/2024 LOS: 4 days Referring physician: Vijay Lott MD Outpatient Motor Polarizer: Tamia Marquez Assessment / Plan Franklin Burton is a 79 y.o. male with a past medical history of ESRD on HD MWF at [facility], GPA, DM type 2, HTN, HFrEF, [...] call with any questions. Aleyda Martinez MD [facility] ([facility]) Office phone: [phone] Office fax: [phone] 11/29/2024 Subjective Patient was seen and examined [...] Sitting Pulse: 87 93 89 96 Resp: Temp: 36.5 ?C (97.7 ?F) 36.5 ?C [...] as of this encounter: 1.727 m (5' 7.99). Weight as of this encounter: 103 kg [...] bruit present LABS Labs reviewed. Recent Labs 11/27/2431411/28/24 0201 11/29/24 0348 WBC 5.9 4.6 4.2 HGB 11.1* [...] IntraVENous, q12h tamsulosin, 0.4 mg, Oral, Daily [2][facility]07-13-2025 Plan of care note* Care Plan - Vicki Garzon RN - 11/28/2024 5:43 PM EDT Problem: Knowledge Deficit Goal: Patient/family/caregiver demonstrates understanding [...] Goal: Nutritional status is improving Outcome: Progressing [facility] [id number] NoteHospitalist Progress Note - [facility] - [employer] ([facility]) 11/28/2024 10:46 AM [phone]: Please page me for patient care issues. [phone]: Please page [facility] - [facility] for any issues. Subjective and Objective: Admit Date: 11/25/2024 PCP: Matilde Noguera MD No chief complaint on file. Hospital course: ICU course per Dr. Dasilva: 79 y/o M with PMHx ESRD on iHD, BPH, T2DM, Obesity, ROYAL, RLS, GPA, HFpEF (EF 50% on 11/25/24), chronic back pain with neuropathy who presented to [facility] as a transfer from outside facility [...] transfer to floor later in the day. Pt transferred to [facility] 11/28. Neurocritical care advised against LP. YARD OPERATOR eval ordered. EEG performed 11/27, interpreted as Continuous diffuse mild slowing is seen not responsive to stimulation...findings are supportive of a stable mild global encephalopathy non-specific as to etiology. Interval Updates: 11/28/24 -Phos 2.0 (1.6), BMP [...] [Urine:150 (0 mL/kg/hr)] Weight: 103.4 kg @IODETAILS@ @INIA6FQHINW@ Medications: Continuous Meds[1] Scheduled Meds[2] Recent Labs 11/26/2441911/26/24 0647 11/27/245 11/28/24 0201 WBC 6.5 -- 5.9 4.6 HGB 11.6* 12.0 11.1* 10.5* PLT 101* -- 114* 118* Recent Labs 11/26/2441911/27/24 0315 11/28/24 0201 NA 130* 136 134* K 5.6* 3.9 4.1 CL 102 103 105 CO2 24 24 22* BUN 18 16 26* CREATININE 3.67* 2.84* 3.52* GLUCOSE 108 110 97 Recent Labs 11/26/2441911/27/245 11/28/24 0201 AST 25 27 31 ALT 10 9 16 BILITOT 0.8 1.2* 0.8 ALKPHOS 81 83 82 No results found for: TRIG, HDL, LDLCALC, CHOL No results found for: PHART, PO2ART, TWX1KGN No results for input(s): INR in the last 72 hours. No results for input(s): CKTOTAL, CKMB, TROPONINI in the last 72 hours. No results for input(s): DDIMER in the last 72 hours. No results found for: HGBA1C No results found for: TSH Urine Culture: No results found for this or any previous visit. Objective: Vitals: BP 143/80 (BP Location: Right arm, Patient Position: Lying) Pulse 92 Temp 36.7 ?C (98.1 ?F) (Temporal) Resp 16 Ht 5' 7.99 (1.727 m) Wt 228 lb (103 kg) [...] and atrophic changes. -Allan (more content not included)...[facility]07-13-2025 Note PHYSICAL THERAPY [facility] Initial Evaluation Name/MRN: Franklin Burton ([id number]) Evaluation Date: 11/28/2024 Date of : 1945 Admission Date: 11/25/2024 5:45 AM Age: 79 y.o. Room/Bed: [facility] A Discharge Recommendation: Long Term Facility Equipment Needed: No Assessment IMPRESSION: Pt [...] 08/07/2023 Tremor 08/07/2023 Malnutrition of mild degree ([facility]) 03/09/2023 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 ([facility]) 03/01/2023 Peritoneal dialysis catheter in situ ([facility]/HCC) ([facility]) 03/01/2023 Periumbilical abdominal pain 03/01/2023 Motion sickness 12/24/2022 Arthralgia 12/02/2022 Bronchitis 12/02/2022 Chest pain 12/02/2022 Chronic back pain 12/02/2022 Diarrhea 12/02/2022 Epistaxis 12/02/2022 Fever 12/02/2022 Finding of above normal blood pressure 12/02/2022 Hearing loss 12/02/2022 Heartburn 12/02/2022 Intermittent claudication ([facility]) 12/02/2022 Obesity with body mass index 30 or greater 12/02/2022 Prediabetes 12/02/2022 Restless legs syndrome 12/02/2022 Viral upper respiratory tract infection 12/02/2022 Chronic neuropathic pain 11/28/2022 Pain, unspecified 10/25/2022 Ankle pain 08/29/2022 Other mechanical complication of surgically created arteriovenous fistula, initial encounter ([facility]) 08/21/2022 Coagulation defect, unspecified ([facility]) 08/20/2022 Abnormal echocardiography 08/05/2022 Allergy, unspecified, initial encounter 08/01/2022 Anaphylactic shock, unspecified, initial encounter 08/01/2022 ESRD (end stage renal disease) ([facility]) 08/01/2022 Anemia in chronic kidney disease 07/30/2022 Dialysis patient ([facility]) 07/30/2022 Noninfective gastroenteritis and colitis, unspecified 07/30/2022 Secondary hyperparathyroidism of renal origin ([facility]) 07/30/2022 Chronic systolic heart failure ([facility]) 06/03/2022 Neuropathy 03/26/2022 Heart failure ([facility]) 03/26/2022 Disease due to severe acute respiratory syndrome coronavirus 2 (SARS-CoV-2) 01/22/2022 Disorder of brain 01/22/2022 Fatigue 01/22/2022 Hyperkalemia 01/22/2022 Stage 3 chronic kidney disease ([facility]) 01/22/2022 Arteriovenous fistula (CMS/HCC) (HCC) 07/25/2021 Stage 5 chronic kidney disease due to hypertension ([facility]) 02/20/2021 BPH with urinary obstruction 04/06/2020 Zach's granulomatosis with renal involvement (HCC) 10/27/2019 Gastroesophageal reflux disease 10/21/2019 Hypertension 10/21/2019 Morbidly obese ([facility]) 10/21/2019 Iron deficiency anemia, unspecified 10/21/2019 Obstructive sleep apnea syndrome 10/20/2019 Avascular necrosis of bone of hip (CMS/HCC) (HCC) 07/09/2019 Abdominal hernia 07/09/2019 Polyneuropathy due to other toxic agents ([facility]) 11/17/2017 Diverticulosis of large intestine without diverticulitis 08/22/2017 BPH with obstruction/lower urinary tract symptoms 07/24/2016 Adenomatous colon polyp 01/27/2016 Vitamin D deficiency 11/29/2015 Osteoporosis 10/09/2015 Granulomatosis with polyangiitis ([facility]) 12/30/2014 Compression fracture of L1 lumbar vertebra ([facility]) 12/30/2014 Medical Precautions: No active isolations Proper [...] and wheelchair - ma (more content not included)...[facility] [id number] Plan of care note* Care Plan - Nathanael Coelho RN - 11/28/2024 5:55 AM EDT Problem: Knowledge Deficit Goal: Patient/family/caregiver demonstrates understanding of disease process, treatment plan, medications, and discharge instructions 11/28/2024 0555 by Nathanael Coelho RN Outcome: Progressing 11/28/2024 0546 by Nathanael Coelho RN Outcome: Progressing Problem: Neurological Deficit Goal: Neurological status is stable or improving 11/28/2024 0555 by Nathanael Coelho RN Outcome: Progressing 11/28/2024 0546 by Nathanael Coelho RN Outcome: Progressing Problem: Activity Intolerance/Impaired Mobility Goal: Mobility/activity is maintained at optimum level for patient 11/28/2024 0555 by Nathanael Coelho RN Outcome: Progressing 11/28/2024 0546 by Nathanael Coelho RN Outcome: Progressing Problem: Potential for Aspiration Goal: Non-ventilated patient's risk of aspiration is minimized 11/28/2024 0555 by Nathanael Coelho RN Outcome: Progressing 11/28/2024 0546 by Nathanael Coelho RN Outcome: Progressing Goal: Ventilated patient's risk of aspiration is minimized 11/28/2024 0555 by Nathanael Coelho RN Outcome: Progressing 11/28/2024 0546 by Nathanael Coelho RN Outcome: Progressing Problem: Nutrition Goal: Nutritional status is improving 11/28/2024 0555 by Nathanael Coelho RN Outcome: Progressing 11/28/2024 0546 by Nathanael Coelho RN Outcome: Progressing [facility]07-13-2025 Plan of care note* Care Plan - Nathanael Coelho RN - 11/28/2024 5:46 AM EDT Problem: Knowledge Deficit Goal: Patient/family/caregiver demonstrates understanding [...] Goal: Nutritional status is improving Outcome: Progressing [facility]07-12-2025 [facility] Respiratory Care Department Progress Note Comment or [...] mind regarding wearing PAP to hit their call light or inform their nurse to contact Respiratory. [...] Respiratory in the care of this patient, [facility]07-12-2025 NoteNephrology Progress Note Patient: Franklin Burton Room number: T2-207/T2-207 A Date of Admit: 11/25/2024 LOS: 2 days Referring physician: Fawad Ruiz MD Outpatient Motor Polarizer: Tamia Marquez Assessment / Plan Franklin Burton is a 79 y.o. male with a past medical history of ESRD on HD MWF at [facility], GPA, DM type 2, HTN, HFrEF, [...] call with any questions. Fawad Robison MD [facility] ([facility]) Office phone: [phone] Office fax: [phone] 11/27/2024 Subjective Patient was seen and examined [...] as of this encounter: 1.727 m (5' 7.99). Weight as of this encounter: 103 kg [...] present LABS Labs reviewed. Recent Labs 11/25/24 0711/26/240 11/26/24 0647 11/27/24 0315 WBC 6.3 6.5 [...] chloride, 50 mL/hr, Last Rate: 50 mL/hr (11/27/24210)[facility] [id number] [facility] [address] [place] [address] CONTINUOUS LONG-TERM VIDEO EEG MONITORING REPORT Patient Name: Franklin Burton : 1945 Date of Study: 11/27/2024 Duration Recorded: 13:50:00 EEG#: [id number] BILL RECAPITULATION CLERK: Alvaro HARDY PROVIDER REQUESTING STUDY: Erasmo Singh [...] evaluated at outside hospital and transferred to [facility] for further evaluation management. MEDICATIONS: Current Medications[1] TECHNICAL ASPECTS: This continuous scalp EEG study with video was carried out at [facility]. Scalp electrodes were positioned in person by an echo technologist, following patient education, according to the 10-20 International system of electrode placement and maintained for integrity and quality of the recording. An abbreviated set of electrodes was placed which included FP1/2, T7/8, C3/4, O1/2, Fz-Cz-Pz. EEG data with video was recorded continuously and digitally stored. The echo technologist reviewed all automated detections and manual [...] Units SubCUTAneous 2 time (more content not included)...[facility] [id number] Procedure note* Joselito Rehman MD PhD - 11/27/2024 1:18 PM EDTAssociated Order(s): EEG CONTINUOUS MONITORING Images from the original note were not included. [facility] [address] [place] [id number] CONTINUOUS LONG-TERM VIDEO EEG MONITORING REPORT Patient Name: Franklin Burton : 1945 Date of Study: 11/27/2024 Duration Recorded: 13:50:00 EEG#: [id number] BILL RECAPITULATION CLERK: Alvaro HARDY PROVIDER REQUESTING STUDY: Erasmo Singh [...] evaluated at outside hospital and transferred to [facility] for further evaluation management. MEDICATIONS: Current Medications[1] TECHNICAL ASPECTS: This continuous scalp EEG study with video was carried out at [facility]. Scalp electrodeswere positioned in person by an echo technologist, following patient education, according to the 10-20 International system of electrode placement and maintained for integrity and quality of the recording. An abbreviated set of electrodes was placed which included FP1/2, T7/8, C3/4, O1/2, Fz-Cz-Pz. EEG data with video was recorded continuously and digitally stored. The echo technologist reviewed all automated detections and manual [...] the appearance of vertex waves and sleep spindlesseen over the fronto-central head regions bilaterally. Normal Variants: None 00:00:37 -Background activity (AP Bipolar, LFF=1Hz, HFF=70Hz, Sens=7 uV/mm) SLOWING: Continuous (greater than 90% of the recording) diffuse delta range (6.5-7.5 Hz, 10-35 uV) irregularto semirhythmical slow wave activity was seen non-responsive [...] Nightly Erasmo Singh DO 40 mg at azaTHIOprine (Imuran) tablet 50 mg 50 mg Oral Lunch Erasmo Yoseph Kabellar, DO bisacodyl (Dulcolax) suppository 10 mg 10 mg Rectal Daily PRN Erasmo Singh DO carboxymethylcellulose PF (Refresh Plus) 0.5 % ophthalmic solution 1 drop 1 drop Both Eyes 4x dailyPRN Cristi Dasilva MD clopidogrel (Plavix) tablet 75 [...] 80 mg Oral 4x daily PRN Christopher Alexis, DO sodium chloride 0.9 % infusion 5-250 [...] Singh DO 0.4 mg at 11/26/24 1015 [facility] Work Phone: [phone] 750-933607-12-2025 Procedure note* Joselito Rehman MD PhD - 11/27/2024 1:18 PM EDTAssociated Order(s): EEG CONTINUOUS MONITORING Images from the original note were not included. [facility] [address] [place] [id number] CONTINUOUS LONG-TERM VIDEO EEG MONITORING REPORT Patient Name: Franklin Burton : 1945 Date of Study: 11/27/2024 Duration Recorded: 13:50:00 EEG#: [id number] BILL RECAPITULATION CLERK: Alvaro HARDY PROVIDER REQUESTING STUDY: Erasmo Yoseph Kabellar, DO REASON FOR EXAM: Evaluate for seizures [...] evaluated at outside hospital and transferred to [facility] for further evaluation management. MEDICATIONS: Current Medications[1] TECHNICAL ASPECTS: This continuous scalp EEG study with video was carried out at [facility]. Scalp electrodeswere positioned in person by an echo technologist, following patient education, according to the 10-20 International system of electrode placement and maintained for integrity and quality of the recording. An abbreviated set of electrodes was placed which included FP1/2, T7/8, C3/4, O1/2, Fz-Cz-Pz. EEG data with video was recorded continuously and digitally stored. The echo technologist reviewed all automated detections and manual [...] the appearance of vertex waves and sleep spindlesseen over the fronto-central head regions bilaterally. Normal Variants: None 00:00:37 -Background activity (AP Bipolar, LFF=1Hz, HFF=70Hz, Sens=7 uV/mm) SLOWING: Continuous (greater than 90% of the recording) diffuse delta range (6.5-7.5 Hz, 10-35 uV) irregularto semirhythmical slow wave activity was seen non-responsive [...] Nightly Erasmo Singh DO 40 mg at azaTHIOprine (Imuran) tablet 50 mg 50 mg Oral Lunch Erasmo Singh DO bisacodyl (Dulcolax) suppository 10 mg 10 mg Rectal Daily PRN Erasmo Singh DO carboxymethylcellulose PF (Refresh Plus) 0.5 % ophthalmic solution 1 drop 1 drop Both Eyes 4x dailyPRN Cristi Dasilva MD clopidogrel (Plavix) tablet 75 [...] 80 mg Oral 4x daily PRN Christopher Alexis, DO sodium chloride 0.9 % infusion 5-250 mL/hr IntraVENous PRN Erasmo Singh DO sodium chloride 0.9 % infusion 50 mL/hr IntraVENous Continuous Erasmo Signh DO 50 mL/hr at 11/27/24 021 50 mL/hr at 11/27/24 021 sodium chloride 0.9% (NS) flush 5-40 mL 5-40 mL IntraVENous q12h Erasmo Singh DO sodium chloride 0.9% (NS) flush 5-40 mL 5-40 mL IntraVENous PRN Erasmo Singh DO tamsulosin (Flomax) 24 hr capsule 0.4 mg 0.4 mg Oral Daily Erasmo Yoseph Singh DO 0.4 mg at 11/26/24 1015 * Joselito Rehman MD PhD - 11/26/2024 11:31 AM EDTAssociated Order(s): EEG CONTINUOUS MONITORING Images from the original note were not included. [facility] [address] [place] [id number] CONTINUOUS LONG-TERM VIDEO EEG MONITORING REPORT Patient Name: Franklin Burton : 1945 Date of Study: 11/26/2024 Duration Recorded: 18:45:43 EEG#: [id number] BILL RECAPITULATION CLERK: Alvaro HARDY PROVIDER REQUESTING STUDY: Erasmo Singh [...] evaluated at outside hospital and transferred to [facility] for further evaluation management. MEDICATIONS: Current Medications[1] TECHNICAL ASPECTS: This continuous scalp EEG study with video was carried out at [facility]. Scalp electrodeswere positioned in person by an echo technologist, following patient education, according to the 10-20 International system of electrode placement and maintained for integrity and quality of the recording. An abbreviated set of electrodes was placed which included FP1/2, T7/8, C3/4, O1/2, Fz-Cz-Pz. EEG data with video was recorded continuously and digitally stored. The echo technologist reviewed all automated detections and manual [...] the appearance of vertex waves and sleep spindlesseen over the fronto-central head regions bilaterally. Normal Variants: None 09:06:38 -Background activity (Referential to average, LFF=1Hz, HFF=30Hz, Sens=7 uV/mm) SLOWING: Continuous (greater than 90% of the recording) diffuse delta range (6.5-7.5 Hz, 10-35 uV) irregularto semirhythmical slow wave activity was seen non-responsive [...] supportive of an improving mild global encephalopathy non- specific as to etiology. Compared with the previous [...] 5-40 mL 5-40 mL IntraVENous q12h Erasmo Singh, DO sodium chloride 0.9% (NS) flush 5-40 mL 5-40 mL IntraVENous PRN Erasmo Singh DO tamsulosin (Flomax) 24 hr capsule 0.4 mg 0.4 mg Oral Daily Erasmo Singh DO 0.4 mg at 11/26/24 1015 * Joselito Rehman MD PhD - 11/25/2024 10:42 PM EDTAssociated Order(s): EEG CONTINUOUS MONITORING Images from the original note were not included. [facility] [address] [place] [id number] CONTINUOUS LONG-TERM VIDEO EEG MONITORING REPORT Patient Name: Franklin Burton : 1945 Date of Study: 11/25/2024 Duration Recorded: 02:14:39 EEG#: [id number] BILL RECAPITULATION CLERK: Alvaro HARDY PROVIDER REQUESTING STUDY: Erasmo Singh [...] evaluated at outside hospital and transferred to [facility] for further evaluation management. MEDICATIONS: Current Medications[1] TECHNICAL ASPECTS: This continuous scalp EEG study with video was carried out at [facility]. Scalp electrodeswere positioned in person by an echo technologist, following patient education, according to the 10-20 International system of electrode placement and maintained for integrity and quality of the recording. An abbreviated set of electrodes was placed which included FP1/2, T7/8, C3/4, O1/2, Fz-Cz-Pz. EEG data with video was recorded continuously and digitally stored. The echo technologist reviewed all automated detections and manual [...] 10-20 uV) was seen, at times reminiscent ofsleep architecture. Sleep: No clearcut sleep architecture was [...] observed. The findings are supportive of a tgifoobw-xg-frsvxc global encephalopathy non- specific as to etiology. Anam Guerrier, PhD Clinical Neurophysiologist Joselito Rehman MD PhD Epilepsy Attending [1] Current Facility-Administered Medications Medication Dose Route Frequency Provider Last Rate Last Admin acetaminophen (Tylenol) tablet 650 mg 650 mg Oral q6h PRN Erasmo Singh DO Or acetaminophen (Tylenol) suppository 650 mg 650 mg Rectal q6h PRN Erasmo Yoseph Kabellar, DO atorvastatin (Lipitor) tablet 40 mg 40 [...] % infusion 5-250 mL/hr IntraVENous PRN Erasmo Yoseph Kabellar, DO sodium chloride 0.9 % infusion 50 mL/hr IntraVENous Continuous Erasmo Singh, DO 50 mL/hr at 11/25/24 0702 50 mL/hr at 11/25/24 0702 sodium chloride 0.9% (NS) flush 5-40 mL 5-40 mL IntraVENous q12h Erasmo Singh DO sodium chloride 0.9% (NS) flush 5-40 mL 5-40 mL IntraVENous PRN Erasmo Singh DO tamsulosin (Flomax) 24 hr capsule 0.4 mg 0.4 mg Oral Daily Erasmo Singh DO * Loree Jamison - 11/25/2024 3:49 PM EDT 2nd attempt to complete routine EEG, pt uncooperative. Will attempt again tomorrow * Loree Jamison - 11/25/2024 8:38 AM EDTAssociated Order(s): EEG I attempted to complete routine EEG, pt thrashing around in bed, family currently in room and does not feel patient will tolerate testing at this time. Please re-order when patient is more cooperative documented in this [facility]07-11-2025 NoteFamily Communication Spoke with and daughter in the room. Updated them on neurology's thoughts that this is dialysis disequilibrium syndrome and attempted to explain what this is. Informed that we are stopping the EEG due to no seizure activity and we will call and update with MRI brain results. [facility]07-11-2025 [facility] Respiratory Care Department Progress Note Patient was [...] mind regarding wearing PAP to hit their call light or inform their nurse to contact Respiratory. [...] Respiratory in the care of this patient, .[address] [place], [place] [address]7-11-2025 Nurse Note* Daniel Merlos RN - 11/26/2024 3:18 PM EDT 2L removed with tx, less than 10min [...] in ICU/ED $ IP Hemodialysis Charge [id number]* Care Coordination - Alfreda Luna RN - 11/26/2024 11:42 AM EDT Care Management Progress Note Transferred to T2 ICU for aggitation, precedex gtt, iHD baseline MWF - nephrology following. PT/OT pending. Planned Discharge Disposition: Other (Comment) (TBD) iHD - [facility] Dialysis - MWF CM called [facility] [phone] regarding chair hold. Will hold chair for 30 days. CM updated EHR/MELBA with dialysis information. Barriers/Today we still Wait: Administering IV medications, Clinical stability, Pipe Processor recommendations (comment) Length of Stay (Days): 1 GMLOS: No GMLOS Documented Case management will continue to follow for discharge planning. [facility] [id number] Note* Care Coordination - Alfreda Luna RN - 11/26/2024 11:42 AM EDT Care Management Progress Note Transferred to T2 ICU for aggitation, precedex gtt, iHD baseline MWF - nephrology following. PT/OT pending. Planned Discharge Disposition: Other (Comment) (TBD) iHD - [facility] Dialysis - MWF CM called [facility] [phone] regarding chair hold. Will hold chair for 30 days. CM updated EHR/MELBA with dialysis information. Barriers/Today we still Wait: Administering IV medications, Clinical stability, Pipe Processor recommendations (comment) Length of Stay (Days): 1 GMLOS: No GMLOS Documented Case management will continue to follow for discharge planning. [id number] NoteCare Management Progress Note Transferred to T2 ICU for aggitation, precedex gtt, iHD baseline MWF - nephrology following. PT/OT pending. Planned Discharge Disposition: Other (Comment) (TBD) iHD - [facility] - MWF CM called [facility] [phone] regarding chair hold. Will hold chair for 30 days. CM updated EHR/MELBA with dialysis information. Barriers/Today we still Wait: Administering IV medications, Clinical stability, Pipe Processor recommendations (comment) Length of Stay (Days): 1 GMLOS: No GMLOS Documented Case management will continue to follow for discharge planning. [facility] [id number] [facility] [address] [place] [id number] CONTINUOUS LONG-TERM VIDEO EEG MONITORING REPORT Patient Name: Franklin Burton : 1945 Date of Study: 11/26/2024 Duration Recorded: 18:45:43 EEG#: [id number] BILL RECAPITULATION CLERK: Alvaro HARDY PROVIDER REQUESTING STUDY: Erasmo Singh [...] evaluated at outside hospital and transferred to [facility] for further evaluation management. MEDICATIONS: Current Medications[1] TECHNICAL ASPECTS: This continuous scalp EEG study with video was carried out at [facility]. Scalp electrodes were positioned in person by an echo technologist, following patient education, according to the 10-20 International system of electrode placement and maintained for integrity and quality of the recording. An abbreviated set of electrodes was placed which included FP1/2, T7/8, C3/4, O1/2, Fz-Cz-Pz. EEG data with video was recorded continuously and digitally stored. The echo technologist reviewed all automated detections and manual [...] at 11/26/24 1014 labeta (more content not included)...[facility] [id number] Procedure note* Joselito Rehman MD PhD - 11/26/2024 11:31 AM EDTAssociated Order(s): EEG CONTINUOUS MONITORING Images from the original note were not included. [facility] [address] [place] [address] CONTINUOUS LONG-TERM VIDEO EEG MONITORING REPORT Patient Name: Franklin Burton : 1945 Date of Study: 11/26/2024 Duration Recorded: 18:45:43 EEG#: [id number] BILL RECAPITULATION CLERK: Alvaro HARDY PROVIDER REQUESTING STUDY: Erasmo Singh [...] evaluated at outside hospital and transferred to [facility] for further evaluation management. MEDICATIONS: Current Medications[1] TECHNICAL ASPECTS: This continuous scalp EEG study with video was carried out at [facility]. Scalp electrodeswere positioned in person by an echo technologist, following patient education, according to the 10-20 International system of electrode placement and maintained for integrity and quality of the recording. An abbreviated set of electrodes was placed which included FP1/2, T7/8, C3/4, O1/2, Fz-Cz-Pz. EEG data with video was recorded continuously and digitally stored. The echo technologist reviewed all automated detections and manual [...] the appearance of vertex waves and sleep spindlesseen over the fronto-central head regions bilaterally. Normal Variants: None 09:06:38 -Background activity (Referential to average, LFF=1Hz, HFF=30Hz, Sens=7 uV/mm) SLOWING: Continuous (greater than 90% of the recording) diffuse delta range (6.5-7.5 Hz, 10-35 uV) irregularto semirhythmical slow wave activity was seen non-responsive [...] supportive of an improving mild global encephalopathy non- specific as to etiology. Compared with the previous [...] % infusion 5-250 mL/hr IntraVENous PRN Erasmo Singh, DO sodium chloride 0.9 % infusion 50 [...] Singh DO 0.4 mg at 11/26/24 1015 [facility]07-11-2025 NoteNephrology Progress Note Patient: Franklin Burton Room number: [id number]/[id number] A Date of Admit: 11/25/2024 LOS: 1 days Referring physician: Fawad Ruiz MD Outpatient Motor Polarizer: [facility] Assessment / Plan Franklin Burton is a 79 y.o. male with a past medical history of ESRD on HD MWF at [facility], GPA, DM type 2, HTN, HFrEF, [...] Robison covering this weekend. Aleyda Martinez MD [facility] ([facility]) Office phone: [phone] Office fax: [phone] 11/26/2024 Subjective Patient was seen and examined [...] as of this encounter: 1.727 m (5' 8). Weight as of this encounter: 103 kg [...] bruit present LABS Labs reviewed. Recent Labs 11/25/2470111/26/2441911/26/24 0647 WBC 6.3 6.5 -- HGB 11.3* 11.6* 12.0 HCT 35.2* 35.8* -- MCV 95.9 95.5 -- PLT 114* 101* -- Recent Labs 11/25/2470111/26/24419 ALT 13 10 AST 22 25 ALKPHOS [...] chloride, 50 mL/hr, Last Rate: 50 mL/hr (11/25/24701)[facility] [id number] Consult note* Alfreda Luna RN - 11/26/2024 10:41 AM EDTAssociated Order(s): IP CONSULT TO CASE MANAGEMENT Acknowledges case management consult. Case management will follow for discharge planning. [facility] [id number] Consult note* Alfreda Luna RN - 11/26/2024 10:41 AM EDTAssociated Order(s): IP CONSULT TO CASE MANAGEMENT Acknowledges case management consult. Case management will follow for discharge planning. * Amber Eubanks MD - 11/26/2024 8:08 AM EDTAssociated Order(s): IP CONSULT TO GERIATRICS Images from the original note were not included. [facility] Geriatric Medicine Inpatient Consult Service Admission Date: 11/25/2024 Admission Status: INPATIENT Reason for Appointment No chief complaint on file. Geriatrics consulted for rec confusion Assessment Principal Problem: Stroke-like symptoms Active Problems: Stroke-like symptom Plan During this encounter, I spent 55 minutes -Reviewing previous notes, -Reviewing labs, -Obtaining and/or reviewing separately obtained history, - Counseling/educating the patient/family/caregiver, -Documenting clinical information in the patients electronic record, -Coordination of care for the patient, and -Performing a medically appropriate exam and/or evaluation. Encephalopathy -Improving. Unclear etiology. Agree with ruling out neurologic event as symptoms do seem to be mostconsistent with this. Predisposing factors for this patient include: Advanced age, cognitive impairment, end-stage renal disease Precipitating factors for this patient include: Medication effect, medication withdrawal, dialysis,ICU stay - He did not tolerate Precedex. 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 - Agree with continuing gabapentin and lyrica to avoid withdrawal as a contributor to any confusionthat he may be having. -Delirium protocol - [...] - Cognitive Impairment -Plan for f/up with [facility]. - He does endorse some worsening memory and his robtwhdr-pa-xlr and other family members endorse concern for his driving. Debility - PT/OT evaluation pending. - May benefit from rehab following admission. Neuropathy -Poorly controlled per his report - Agree with continuing gabapentin and pregabalin to avoid withdrawal. - Agree with renally dosing gabapentin and Neurontin given his diagnosis of end- stage renal diseaseon hemodialysis. Subjective: HPI 79 y.o. year-old male presented from outside hospital for altered mental status on 11/25/2024 . He was transferred from an outside hospital to [facility]. Per review of history and physical episode [...] so this was discontinued. He had noticeable improvementin his mentation while in the ICU and [...] changes noted. Collateral history obtained from , nxnzlabs-zc-ytm. Feels that this memory is slipping away. [...] Wishes that he could take the percocet morefrequently. Christina states that he has had other epiisodes of altered mental status but they were not this bad. His said tgaht she heard him call her name and then he seemed to not be able to speak she thought he was having a stroke. Quick Cognitive Screen (QCS): Nursing Delirium Screen (Nu-Desc): Nursing Delirium Symptom Checklist Total Score: 6 Known to the [facility]? No Allergies[1] Medications reviewed in hospital records. Medical History[2] Surgical History[3] Social History Tobacco Use Smoking status: Former Current packs/day: 0.00 Average packs/day: 1 pack/day for 19.0 years (19.0 ttl pk-yrs) Types: Cigarettes Start date: 07/08/1962 Quit date: 07/26/1981 Years since quittin.3 Smokeless tobacco: Never Substance Use Topics Alcohol use: Never Present at visit: , sister, ymwvpkbg-os-gse Marital status: Children: yes Living arrangement: with spouse Household safety problems: weakness, memory loss Driving safety concerns: He denies any but family endorse concerns about driving. Gtxoyaay-ko-dte states that she would not let him drive her children Elder abuse: Community resources: .unknown Healthcare Power of Registered Mail Clerk: unknown Living Will: unknown Code Status: DNR-CCA [...] (97.1 F) (Temporal) Resp 24 Ht 5' 8 (1.727 m) Wt 228 lb (103 kg) [...] 3.739 04/09/2021 UA: No results found for: APPEARANCE, COLORU, LABSPEC, LABPH, URINE, GLUCOSEU, UROBILINOGEN, BILIRUBINUR, OCBU No results found for the last [...] system including errors in grammar, punctuation, and spelling,as well as words and phrases that may [...] 07/24/2016 no diabetes GERD (gastroesophageal reflux disease) [place] (hard of hearing) RIGHT EAR AND HAS [...] Father Heart failure Mother Heart disease Mother * Erasmo Singh, DO - 11/25/2024 4:14 PM EDT Images from the original note were not included. Internal Medicine: MICU Initial History and Physical Name: Franklin Burton : 1945(79 y.o.) Date: 11/25/24 Attending: Dr. Ruiz Subjective: Chief Complaint: AMS HPI: 79 y/o M with PMHx ESRD on iHD, BPH, T2DM, Obesity, ROYAL, RLS, GPA, HFpEF (EF 50% on 11/25/24), chronic back pain with neuropathy who presented to [facility] as a transfer from outside facility for evaluation of AMS. Pt admitted to the hospitalist service with neurology consult. Plan is for EEG and MRIfor further evaluation. However, the patient was notably [...] patient is unable to answer questions or providehistory. He does occasionally speak words that are [...] became altered. This persisted into the next morningwhich prompted his visit to the emergency department. [...] Resource Strain: Low Risk (03/04/2023) Received from [facility] Overall Financial Resource Strain (CARDIA) Difficulty of Paying Living Expenses: Not hard at all Food Insecurity: No Food Insecurity (03/04/2023) Received from [facility] Hunger Vital Sign Worried About Running Out of Food in the Last Year: Never true Ran Out of Food in the Last Year: Never true Transportation Needs: No Transportation Needs (03/04/2023) Received from [facility] PRAPARE - Transportation Lack of Transportation (Medical): No Lack of Transportation (Non-Medical): No Physical Activity: Not on file Stress: Not on file Social Connections: Not on file Intimate Partner Violence: Not on file Housing Stability: Unknown (03/04/2023) Received from [facility] Housing Stability Vital Sign Unable to [...] (40 mg) by mouth daily. 10/15/22 Rahel Terry MD pregabalin (Lyrica) 25 MG capsule Take [...] (Temporal) Resp 20 Ht 1.727 m (5' 8) Wt 103 kg (228 lb) SpO2 94% [...] Normal [] Scar/Lesion/Mass Inspection of teeth/lips/gums Dentition: [][place] Teeth []Dentures Lips/Gums: [x]Intact []Lesion Present Mucosa: [][place] []Moist [x]Dry Neck: External Appearance Overall Appearance: [...] within last 24 hours- BMP: Recent Labs 11/25/24701 NA 133* K 4.6 CL 101 CO2 27 BUN 13 CREATININE 3.06* CALCIUM 9.2 LFTs: Recent Labs 11/25/24701 AST 22 ALT 13 PROT 6.8 ALBUMIN 3.7 BILITOT 0.6 ALKPHOS 81 Glucose: Recent Labs 11/25/24 07 GLUCOSE 103 Procal: No results for input(s): PROCAL in the last 72 hours. CBC: Recent Labs 11/25/24701 WBC 6.3 HGB 11.3* HCT 35.2* PLT 114* MCV 95.9 RDW 13.2 ABGs: No results for input(s): PHART, OBB0GFH, PO2ART, VEM0FZC, SO2ART, O8XNTSHX in thelast 72 hours. Lactic Acid: No results for input(s): LACTATE in the last 72 hours. INR: No results for input(s): INR in the last 72 hours. Cardiac Injury Profile: No results for input(s): CKTOTAL, CKMB, TROPONINI in the last 72 hours. Labs in [...] COVID19 Legionella Ag: No results found for: LEGIONELLAPN Strep Ag: No results for input(s): STREPPNEUMO in the last 72 hours. Imaging- CT [...] follow NPO. Hold PO meds for now. 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 I reviewed the chart includingMAR, labs, and radiology and agree with the [...] RLS, HFpEF 50% who presented from outside facilitywith altered mental status. Admitted for neurology evaluation and further work up however patient persistently agitated prohibiting further work up. CT head demonstrated chronic small vessel changes.Metabolic encephalopathy work up including ammonia, troponin, and [...] Normal [] Scar/Lesion/Mass Inspection of teeth/lips/gums Dentition: [][place] Teeth []Dentures Lips/Gums: [x]Intact []Lesion Present Mucosa: [x][place] [x]Moist []Dry Neck: External Appearance Overall Appearance: [...] care is an initial visit: 75 minutes (LevelIII). Fawad Ruiz MD Pulmonary and Critical Care Medicine Attending Pager #[phone] * Aleyda Martinez MD - 11/25/2024 3:09 PM EDTAssociated Order(s): IP CONSULT TO NEPHROLOGY Images from the original note were not included. Nephrology Consult Note Patient: Franklin Burton Room number: [id number] A Date of Admit: 11/25/2024 LOS: 0 days Referring physician: Taylor Weinberg MD Outpatient Motor Polarizer: [facility] Reason for Consult ESRD on HD Chief complaint: AMS Assessment / Plan Franklin Burton is a 79 y.o. male with a past medical history of ESRD on HD MWF at [facility], GPA, DM type 2, HTN, HFrEF, [...] call with any questions. Aleyda Martinez MD [facility] ([facility]) Office phone: [phone] Office fax: [phone] 11/25/2024 History of Present Illness Franklin Burton is a 79 y.o. male with a past medical history of ESRD on HD MWF at [facility], [facility], DM type 2, HTN, HFrEF, BPH, GERD, ROYAL, OA, obesity, RLS, neuropathy, who was brought in from OSH due to AMS. Pt had HD yesterday and went home, then woke up agitated, feeling nauseated and confused. He was brought to [facility], then here to [facility]. Upon transfer here, his temp was 97.7 HR 93 RR 18 BP 154/87 and O2sat 95% on 2 L NC. Neurology was consulted and imaging was obtained. Spouse and family are at bedside this afternoon. They report he has had about 3- 4 episodes where this has happened before. Last [...] (benign prostatic hyperplasia) CHF (congestive heart failure) ([facility]) Chronic back pain Chronic kidney disease Chronic systolic heart failure ([facility]) 06/05/2020 Compression fracture spring 2014 T12 Diabetes mellitus without complication ([facility]) ([facility]) 07/24/2016 no diabetes GERD (gastroesophageal reflux disease) [place] (hard of hearing) 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 Hypertension Indwelling Osorio catheter present Obesity ROYAL (obstructive sleep apnea) Osteoarthritis Restless legs syndrome Status post right hip replacement 03/19/2016 Urge incontinence 07/24/2016 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 Weight as of this encounter: 103 kg [...] bruit present LABS Labs reviewed. Recent Labs 11/25/24701 WBC 6.3 HGB 11.3* HCT 35.2* MCV 95.9 PLT 114* Recent Labs 11/25/24701 ALT 13 AST 22 ALKPHOS 81 BILITOT [...] Resource Strain: Low Risk (03/04/2023) Received from [facility] Overall Financial Resource Strain (CARDIA) Difficulty of Paying Living Expenses: Not hard at all Food Insecurity: No Food Insecurity (03/04/2023) Received from [facility] Hunger Vital Sign Worried About Running Out of Food in the Last Year: Never true Ran Out of Food in the Last Year: Never true Transportation Needs: No Transportation Needs (03/04/2023) Received from [facility] PRAPARE - Transportation Lack of Transportation (Medical): No Lack of Transportation (Non-Medical): No Housing Stability: Unknown (03/04/2023) Received from [facility] Housing Stability Vital Sign Unable to [...] 50 mL/hr, Last Rate: 50 mL/hr (11/25/24701) [4] Allergies Allergen Reactions Aspirin Other Cannot have due to kidney disease Other reaction(s): cannot take d/t Zach's Vasculitis Kidney issues Other Other reaction(s): Other: See Comments Sneezing, itchy and watery eyes documented in this [facility]07-11-2025 Consult note* Amber Eubanks MD - 11/26/2024 8:08 AM EDTAssociated Order(s): IP CONSULT TO GERIATRICS Images from the original note were not included. [facility] Geriatric Medicine Inpatient Consult Service Admission Date: 11/25/2024 Admission Status: INPATIENT Reason for Appointment No chief complaint on file. Geriatrics consulted for rec confusion Assessment Principal Problem: Stroke-like symptoms Active Problems: Stroke-like symptom Plan During this encounter, I spent 55 minutes -Reviewing previous notes, -Reviewing labs, -Obtaining and/or reviewing separately obtained history, - Counseling/educating the patient/family/caregiver, -Documenting clinical information in the patients electronic record, -Coordination of care for the patient, and -Performing a medically appropriate exam and/or evaluation. Encephalopathy -Improving. Unclear etiology. Agree with ruling out neurologic event as symptoms do seem to be mostconsistent with this. Predisposing factors for this patient include: Advanced age, cognitive impairment, end-stage renal disease Precipitating factors for this patient include: Medication effect, medication withdrawal, dialysis,ICU stay - He did not tolerate Precedex. 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 - Agree with continuing gabapentin and lyrica to avoid withdrawal as a contributor to any confusionthat he may be having. -Delirium protocol - [...] - Cognitive Impairment -Plan for f/up with [facility]. - He does endorse some worsening memory and his iildlcyp-io-tiq and other family members endorse concern for his driving. Debility - PT/OT evaluation pending. - May benefit from rehab following admission. Neuropathy -Poorly controlled per his report - Agree with continuing gabapentin and pregabalin to avoid withdrawal. - Agree with renally dosing gabapentin and Neurontin given his diagnosis of end- stage renal diseaseon hemodialysis. Subjective: HPI 79 y.o. year-old male presented from outside hospital for altered mental status on 11/25/2024 . He was transferred from an outside hospital to [facility]. Per review of history and physical episode [...] so this was discontinued. He had noticeable improvementin his mentation while in the ICU and [...] changes noted. Collateral history obtained from , ubwmnusq-rw-ima. Feels that this memory is slipping away. [...] Wishes that he could take the percocet morefrequently. Christina states that he has had other epiisodes of altered mental status but they were not this bad. His said tgaht she heard him call her name and then he seemed to not be able to speak she thought he was having a stroke. Quick Cognitive Screen (QCS): Nursing Delirium Screen (Nu-Desc): Nursing Delirium Symptom Checklist Total Score: 6 Known to the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 [...] 347 ms QTC Interval 438 ms P [place] 68 degrees QRS [place] 35 degrees T Wave [place] 38 degrees [place] Interval 185 ms Hemoglobin A1c Collection Time: [...] mL/min/1.73m*2 Since admission: No results for input(s): CKTOTAL, TROPONINI in the last 72 hours. Recent Labs 11/25/24 0702 ALKPHOS 81 ALT 13 AST 22 BILITOT 0.6 @BRIEFLAB(TSHHS) ABGs:)No results for input(s): PH, PO2, PCO2, HCO3, O2SAT in the last 72 hours. No lab exists for component: BE Cultures: Blood culture #1: No lab exists for component: BC Blood culture #2: No lab exists for component: BLOODCULT2 Antiepileptic levels: No results for input(s): PHENYTOIN, PHENOBARB, VALPROATE in the last 72 hours. No lab exists for component: CARBTOT, LAMOTRIG, KEPPRA Coagulation: No results for input(s): INR in the last 72 hours. CSF: No results for input(s): CULTURE, PROTEIN in the last 72 hours. No lab exists for component: CHARCSF, CELL COUNT, GRAM STAIN Stroke Specific: Lipids: Recent Labs 11/25/24 0702 CHOL 146 TRIG 104 HDL 39* HgA1c: No lab exists for component: LABA1C Radiology Personal review: 11/25/24 CT Head w/o IV Contrast IMPRESSION: No acute intracranial abnormality. Diffuse cortical volume loss and chronic small vessel ischemic changes. CTA performed at [facility], results to be uploaded to patient's chart by [facility] CT. ASSESSMENT / PLAN / SUGGESTIONS : Mr. Franklin Burton is a 79-year-old male presenting for 1-day history of acute altered mental status and confusion following a routine hemodialysis session. Patient has had similar episodes at leasttwice before, each time in temporal relation to a hemodialysis session. He first presented to [facility], where initial CTA imaging ruled out LVO or need for TNK. He was then sent to [facility] to obtain further imaging and workup due to non-availability of equipment at original hospital. Patienthas fluctuating levels of alertness and mentation during [...] out. He has no myelopathic signs and doesnot appear to have any signs of potential [...] infectious (unlikely given lack of symptoms and SIRScriteria), and uremic encephalopathy (given observed asterixis in [...] day, protect sleep at night, Seroquel if neededat night for sleep, regular monitoring, keeping patient [...] 07/24/2016 no diabetes GERD (gastroesophageal reflux disease) [place] (hard of hearing) 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 Hypertension Indwelling Osorio catheter present Obesity ROYAL (obstructive sleep apnea) Osteoarthritis Restless legs syndrome Status post right hip replacement 03/19/2016 Urge incontinence 07/24/2016 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 He was taken to [facility] where he had a CT scan of the head and CT angiogram of the head and neck. He was offered tenecteplase but the family refused given similar episodes in the past. He was then transferred to [facility]. At [facility] on arrival, blood pressure 154/87, blood work [...] he does have some asterixis but no lhvivm-od-mdmv dystaxia or dysmetria. No numbness on light [...] counseling/coordinating care and provided discussion regarding diagnostic i mpressions and the plan of care with the consulting team Nuha Hebert MD [facility] [id number] NotePhysical Therapy Evaluation and Treatment Order Received. Pt is out of the room at this time. Will continue to follow. [facility]07-10-2025 Plan of care note* Care Plan - Katheryn Wong RN - 11/25/2024 10:09 AM EDT Problem: Knowledge Deficit Goal: Patient/family/caregiver demonstrates understanding of disease process, treatment plan, medications, and discharge instructions Outcome: Progressing Problem: Neurological Deficit Goal: Neurological status is stable or improving Outcome: Progressing Problem: Activity Intolerance/Impaired Mobility Goal: Mobility/activity is maintained at optimum level for patient Outcome: Progressing Problem: Potential for Aspiration Goal: Non-ventilated patient's risk of aspiration is minimized Outcome: Progressing [facility] [id number] NoteI attempted to complete routine EEG, pt thrashing around in bed, family currently in room and does not feel patient will tolerate testing at this time. Please re-order when patient is more [facility]* Loree Jamison - 11/25/2024 8:38 AM EDTAssociated Order(s): EEG I attempted to complete routine EEG, pt thrashing around in bed, family currently in room and does not feel patient will tolerate testing at this time. Please re-order when patient is more cooperative [facility] [id number] Hospital Discharge instructions* Discharge Instructions* Aziza Christianson MD - 11/25/2024 7:34 AM [...] and the need for follow-up with a physician/ELA TEACHER/PA after discharge. Katheryn Lakhani RN on 11/25/24 [...] Lakhani RN on 11/25/24 at 7:33 AM [place] [id number] [address] [address] [employer] ([email or web address]) * Discharge Instr - MELBA* Glen De La O RN - 11/26/2024 11:40 AM EDT documented in this [facility]04-22-2025 Evaluation note* Diagnosis Onset Date Resolution Status Admit Date Chronic neuropathic pain acute September 07, 2024 8:24am RLS (restless legs syndrome) acute September 07, 2024 8:24am Chronic back pain chronic August 182024 8:24am Essential hypertension chronic Ap ril 2024 8:24am Prediabetes chronic September 07 025 8:24am Zach's granulomatosis chronic September 07, 2024 8:24am Elevated PSA noneactive September 07, 2024 8:24am Heartburn noneactive September 07 8:24am Chronic insomnia noneactive September 072024 8:24am [facility] Work Phone: 1(204) 740-549004-22-2025 Evaluation note* Diagnosis Onset Date Resolution Status Admit Date Chronic neuropathic pain acute September 07, 2024 8:24am RLS (restless legs syndrome) acute September 07, 2024 8:24am Chronic back pain chronic August 182024 8:24am Essential hypertension chronic Ap ril 2024 8:24am Prediabetes chronic September 07 8:24am Zach's granulomatosis chronic September 07, 2024 8:24am Elevated PSA noneactive September 07, 2024 8:24am Heartburn noneactive September 07 8:24am Chronic insomnia noneactive September 072024 8:24am Rash acute October 15, 2024 1:02pm Chronic neuropathic pain acute December 07, 2024 9:49am RLS (restless legs syndrome) acute December 07, 2024 9:49am Chronic back pain chronic December 072024 9:49am Essential hypertension chronic Ju ly 2024 9:49am Prediabetes chronic December 07 9:49am Zach's granulomatosis chronic December 07, 2024 9:49am Elevated PSA noneactive December 07 9:49am Heartburn noneactive December 07 9:49am Chronic insomnia noneactive November 9:49am Delirium noneactive December 07 9:49am Hospital discharge follow-up noneact gavi December 07, 2024 9:49am [facility] Work Phone: 1(686) 852-498012-17-2024 Evaluation note* Diagnosis Onset Date Resolution Status [...] 08, 2024 9:42am Generalized weakness noneactive Bonilla harrison 2024 9:42am [facility] Work Phone: 1(604) 353-469103-21-2024 History of Present illness Narrative* Sky Kerr MD - 08/07/2023 10:20 AM EDT Images from the original note were not included. [facility] [address] [place] [id number] Dept: [phone] Dept 08/07/2023 Chief Complaint Patient presents with [...] Objective: BP 106/65 Pulse 65 Ht 5' 8 (1.727 m) Wt 228 lb (103 kg) [...] XRAYS: Images reviewed with patient today at [facility] Indication: status post Right total hip arthroplasty [...] due to total hip replacement, initial encounter ([facility]) ([facility]) 2. H/O total hip arthroplasty, right 3. [...] M.D. 08/07/2023 at 9:45 AM. Dictated using Chinese Online Version 2.4 Proof read however unrecognized voice recognition errors may have occurred documented in this [facility]10-23-2023 NoteHNO ID: [id number] Author: Cornel Pittman RN Service: Care Management [...] with new outpatient dialysis set up with [facility]. Patient's family to provide transport. No additional needs noted at D/C. Discharge Information Row Name Admission (Current) from 02/28/2023 in [place] [facility] CARD/HF/PD Medical Follow-Up Appointment Specialty Outpatient Dialysis Provider Name [facility] Address [address] [address] Appointment Date 03/12/23 Appointment Time 2:00pm Additional Instructions Your Outpatient Pialysis schedule is Friday, Friday, Friday at 2:00pm. Please arrive 30 minutes early to your first appointment to complete new patient paperwork. Please call the above number with any questions. SIGNATURE: Cornel Pittman RN PATIENT NAME: Franklin Burton DATE: March 10, 2023 TIME: 4:44 PM CONTACT #: [phone] Note HNO ID: [id number] Author: Coty Sheppard RPh Service: Pharmacy Author [...] Your Medications These medications were sent to [facility] [address] [place], [place] [id number] Hours: Friday-Friday, 8am-6:30pm ANTACID (CALCIUM CARBONATE) 500 mg Chew CLEARLAX 17 gram packet levoFLOXacin 500 mg tablet metoprolol tartrate (short acting) 25 mg tablet minocycline 100 mg capsule mirtazapine 15 mg tablet pregabalin 25 mg capsule senna 8.6 mg [facility]10-23-2023 NoteHNO ID: [id number] Author: Kelly Dacosta CPhT Service: Pharmacy Author Type: Veneer Stock Grader Type: Plan of Care Filed: 03/10/2023 4:10 PM Note Text: PHARMACY BEDSIDE DELIVERY SERVICE Patient Name: Franklin Burton The marked outpatient medications were Filled at: [facility] and delivered to the patient's bedside to [...] FLOMAX Kelly Dacosta CPhT PAGER: Kelly Dacosta [phone] 03/10/23 4:10 PM March 10, 2023 4:09 [facility]10-23-2023 NoteHNO ID: [id number] Author: Maurice Kiran MD Service: Nephrology Author Type: Physician Type: Progress Notes Filed: 03/10/2023 3:19 PM Note Text: NEPHROLOGY DIALYSIS NOTE Visit date: 03/10/23, 3:16 PM Patient: Franklin Burton Room number: [id number]* Date of Admit: 02/28/2023 LOS: 9 days Referring physician: James Yadav,* Outpatient Motor Polarizer: Daniel Pacheco MD ASSESSMENT: ESRD Anemia of [...] Hagen, Firas, DO, 50 mg at 03/10/23 0841 finasteride 5 mg tab(s) (PROSCAR), 5 mg, [...] mg, ORAL, q 6 H PRN, Irving Osorio, , 10 mg at 03/09/23 204 levoFLOXacin 500 mg tab(s) (LEVAQUIN), 500 mg, ORAL, q 48 HR, Irving Osorio DO, 500 mg at 03/10/23 08 metoprolol tartrate (short acting) 12.5 mg tab(s) (LOPRESSOR), 12.5 mg, ORAL, BID, Irving Osorio DO, 12.5 mg at 03/10/23 0841 heparin 5,000 Units injection, 5,000 Units, SUBCUTANEOUS, q 12 H, Irving Osorio DO, 5,000 Units at 03/09/23 204 senna 17.2 mg tab(s) (SENOKOT), 17.2 mg, ORAL, DAILY, Irving Osorio DO, 17.2 mg at 03/10/23 0841 polyethylene glycol 3350 17 g packet, 17 g, ORAL, DAILY, DevonIrving brunson, DO, 17 g at 03/10/23 0840 pregabalin 25 mg cap(s) (LYRICA), 25 mg, ORAL, BID, Irving Osorio, DO, 25 mg at 03/10/23 0841 NaCl 0.9% iv flush bag, 20 mL, INTRAVENOUS, PRN, Irving Osorio, , Last Rate: 250 mL/hr at 03/06/23 08, 20 mL at 03/06/23 0829 mirtazapine (REMERON) [...] 95% Weight: Height: Admit (more content not included)...[facility]10-23-2023 Note HNO ID: [id number] Author: Clay Grullon RN Service: Dialysis Author Type: Registered Nurse Type: Nursing Progress Note Filed: 03/10/2023 1:08 PM Note Text: Hemo treatment complete, tolerated well,fluid removed 1 [facility]-2023 NoteHNO ID: [id number] Author: James Yadav MD Service: Hospital Medicine Author Type: Physician Type: Progress Notes Filed: 03/10/2023 2:56 PM Note Text: DEPARTMENT OF HOSPITAL MEDICINE PROGRESS NOTE SERVICE DATE: 03/09/2023 SERVICE TIME: 11:45 AM Hospital Medicine/Primary Attending: James Yadav MD NIGHT AND WEEKEND COVERAGE: After 7pm please page [phone] CHIEF COMPLAINT: Follow-up for peritoneal 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 Daughters in the room visiting. Pain and swelling in RUE better Updated regarding plan of care. All questions answered and concerns addressed. OBJECTIVE: PHYSICAL EXAM: BP 141/80 Pulse 110 Temp (Src) 98.8 (Oral) Resp 18 Ht 5' 8 (1.73m) Wt 212 lb 11.2 oz (96.5kg) [...] today's visit: CBC: No results for input(s): WBC, RBC, HB, HCT, PLT, MCV, MCH, MPV, RDW in the last 24 hours. Coags: No results for input(s): PT, INR, APTT in the last 24 hours. BMP: Recent Labs 03/08/23418 NA 133* K 4.3 CHLOR 99 CO2 24 BUN 37* CREAT 2.79* GLUC 96 CMP: Recent Labs 03/08/23418 NA 133* K 4.3 CHLOR 99 CO2 24 BUN 37* CREAT 2.79* GLUC 96 CA 8.2* ANION 10 Cardiac Enzymes: No results for input(s): CK, MB, CKMB, TROPT in the last 24 hours. Liver Function, Amylase, Lipase: Recent Labs 03/08/23418 ALB 2.8* MG/PHOS: Recent Labs 03/08/23418 P 3.1 Renal Panel: Recent Labs 03/08/23418 CREAT 2.79* BUN 37* GLUC 96 CA 8.2* P 3.1 CHLOR 99 K 4.3 CO2 24 NA 133* Heme: No results for input(s): RETICP, ABSRETIC, LD, AMANDA, FE, TIBC, TRANSFERSAT in the last 24 hours. No results found for: UALBCR Assessment/Plan # Peritonitis due to peritoneal dialysis catheter stenotrophomomas maltophilia infection - PD cx at [facility]ve for stenotrophomomas maltophilia. - S/p PD [...] 2023 TIME: 11:45 AM PAGER/CONTACT #: [facility]10-21-2023 NoteHNO ID: [id number] Author: James Yadav MD Service: Hospital Medicine Author Type: Physician Type: Progress Notes Filed: 03/08/2023 5:49 PM Note Text: DEPARTMENT OF HOSPITAL MEDICINE PROGRESS NOTE SERVICE DATE: 03/08/2023 SERVICE TIME: 5:45 PM Hospital Medicine/Primary Attending: James Yadav MD NIGHT AND WEEKEND COVERAGE: After 7pm please page [phone] CHIEF COMPLAINT: Follow-up for peritoneal 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 Spouse in the room visiting. Updated regarding plan of care. All questions answered and concerns addressed. Patient complaining of pain and redness involving IV line sites in his right upper extremity. OBJECTIVE: PHYSICAL EXAM: BP 141/80 Pulse 110 Temp (Src) 98.8 (Oral) Resp 18 Ht 5' 8 (1.73m) Wt 212 lb 11.2 oz (96.5kg) [...] today's visit: CBC: No results for input(s): WBC, RBC, HB, HCT, PLT, MCV, MCH, MPV, RDW in the last 24 hours. Coags: No results for input(s): PT, INR, APTT in the last 24 hours. BMP: Recent Labs 03/08/23418 NA 133* K 4.3 CHLOR 99 CO2 24 BUN 37* CREAT 2.79* GLUC 96 CMP: Recent Labs 03/08/23418 NA 133* K 4.3 CHLOR 99 CO2 24 BUN 37* CREAT 2.79* GLUC 96 CA 8.2* ANION 10 Cardiac Enzymes: No results for input(s): CK, MB, CKMB, TROPT in the last 24 hours. Liver Function, Amylase, Lipase: Recent Labs 03/08/23418 ALB 2.8* MG/PHOS: Recent Labs 03/08/23418 P 3.1 Renal Panel: Recent Labs 03/08/23418 CREAT 2.79* BUN 37* GLUC 96 CA 8.2* P 3.1 CHLOR 99 K 4.3 CO2 24 NA 133* Heme: No results for input(s): RETICP, ABSRETIC, LD, AMANDA, FE, TIBC, TRANSFERSAT in the last 24 hours. No results found for: UALBCR Assessment/Plan # Peritonitis due to peritoneal dialysis catheter stenotrophomomas maltophilia infection - PD cx at [place] +ve for stenotrophomomas maltophilia. - S/p PD [...] 08, 2023 TIME: 5:45 PM PAGER/CONTACT #: [facility]10-20-2023 NoteHNO ID: [id number] Author: Cornel Pittman RN Service: Care Management Author Type: Registered Nurse Type: Care Mgt Progress Note Filed: 03/07/2023 4:46 PM Note Text: CARE MANAGEMENT PROGRESS NOTE SERVICE DATE: 03/07/2023 SERVICE TIME: 5 LOS: 6 days Possible weekend D/C? Awaiting dialysis approval, still pending with [facility]. Family able to transport at D/C. Will continue to follow. SIGNATURE: Cornel Pittman RN PATIENT NAME: Franklin Burton DATE: March 07, 2023 TIME: 4:45 PM PAGER/CONTACT #: [phone]-07-2023 NoteHNO ID: [id number] Author: Maurice Kiran MD Service: Nephrology Author Type: Physician Type: Progress Notes Filed: 03/07/2023 3:32 PM Note Text: NEPHROLOGY DIALYSIS NOTE Visit date: 03/07/23, 3:26 PM Patient: Franklin Burton Room number: [id number]* Date of Admit: 02/28/2023 LOS: 6 days Referring physician: Sheri Hagen DO Outpatient Motor Polarizer: Daniel Pacheco MD ASSESSMENT: ESRD Anemia of [...] cap(s) (FLOMAX), 0.4 mg, ORAL, BID, Hagen, Malickas, DO, 0.4 mg at 03/07/23 1324 calcitriol 0.5 mcg cap(s) (ROCALTROL), 0.5 mcg, ORAL, q 48 HR, Hagen, Sheri, DO, 0.5 mcg at 03/07/23 1324 calcium carbonate 1,000 mg chewable tab(s) (TUMS), 1,000 mg, ORAL, TID PRN, Irving Osorio, DO, 1,000 mg at 03/06/23 210 oxyCODONE IR 5-10 mg tab(s) (ROXICODONE), 5-10 mg, ORAL, q 6 H PRN, Irving Osorio DO, 10 mg at 03/07/23 1324 levoFLOXacin 500 mg tab(s) (LEVAQUIN), 500 mg, ORAL, q 48 HR, Irving Osorio DO, 500 mg at 03/06/23 1001 eravacycline 100 [...] DAILY, Irving Osorio DO, 17.2 mg at 03/07/23 1323 polyethylene glycol 3350 17 g packet, 17 g, ORAL, DAILY, Irving Osorio DO, 17 g at 03/02/23 0810 pregabalin 25 mg cap(s) (LYRICA), 25 mg, ORAL, BID, Irving Osorio DO, 25 mg at 03/07/23 1323 NaCl 0.9% iv flush bag, 20 mL, INTRAVENOUS, PRN, Irving Osorio DO, Last Rate: 250 mL/hr at 03/06/23 0829, 20 mL at 03/06/23 0829 No current [facility]-ordered outpatient medications on file. PHYSICAL EXAMINATION: [...] as of this encounter: 172.7 cm (5' 8). Weight as of this encounter: 96.5 kg (212 lb 11.2 oz). Intake/Output Summary (Last 24 hours) at 03/07/2023 1526 Last data filed at 03/06/2023 1812 Gross per 24 hour Intake 120 ml Output -- Net 120 ml Genera (more content not included)...[facility]10-20-2023 Note HNO ID: [id number] Author: Sheri Hagen DO Service: Hospital Medicine Author Type: Physician Type: Progress Notes Filed: 03/07/2023 3:06 PM Note Text: HOSPITAL MEDICINE PROGRESS NOTE SERVICE DATE: March 07, 2023 SERVICE TIME: 3:06 PM Hospital Medicine/Primary Attending: Sheri Hagen DO NIGHT AND WEEKEND COVERAGE: After 7pm please page [phone] CHIEF COMPLAINT: Peritonitis (HCC) (POA: Yes) ESRD [...] stenotrophomomas maltophilia infection - PD cx at [facility] for stenotrophomomas maltophilia. - S/p PD [...] (Src) 99 (Oral) Resp 18 Ht 5' 8 (1.73m) Wt 212 lb 11.2 oz (96.5kg) [...] today's visit: CBC: No results for input(s): WBC, RBC, HB, HCT, PLT, MCV, MCH, MPV, RDW in the last 24 hours. Coags: No results for input(s): PT, INR, APTT in the last 24 hours. BMP: Recent Labs 03/07/23 0542 NA 131* K 4.9 CHL (more content not included)...[facility]10-19-2023 NoteHNO ID: [id number] Author: Sheri Hagen DO Service: Hospital Medicine Author Type: Physician Type: Progress Notes Filed: 03/06/2023 6:00 PM Note Text: HOSPITAL MEDICINE PROGRESS NOTE SERVICE DATE: March 06, 2023 SERVICE TIME: 6:00 PM Hospital Medicine/Primary Attending: Sheri Hagen DO NIGHT AND WEEKEND COVERAGE: After 7pm please page [phone] CHIEF COMPLAINT: Peritonitis (HCC) (POA: Yes) ESRD [...] 03/01, afebrile since - PD cx at [place] +ve for stenotrophomomas maltophilia. Sensitive to Bactrim, [...] (Src) 99 (Oral) Resp 18 Ht 5' 8 (1.73m) Wt 212 lb 11.2 oz (96.5kg) [...] q 12 H oxymetazoline 0.05 % 2 [employer] (GENASAL) [address] [employer] EACH NOSTRIL BID PRN calcium carbonate 1,000 [...] 31.4 MPV 9.3 Co (more content not included)...[facility]10-19-2023 NoteHNO ID: [id number] Author: Irving Garcia RPh Service: Pharmacy Author Type: Pharmacist Type: Plan of Care Filed: 03/06/2023 1:42 PM Note Text: PHARMACY MEDICATION REVIEW Patient Name: Franklin Burton : 1945 The following medications were updated within the [facility] medication list: Medications ADDED to [facility] medication list Finasteride Tamuslosin Azathioprine Calcitriol Medications CHANGED on [facility] medication list Omeprazole 20 mg to 40 mg daily Metoprolol 12.5 mg bid to 25 mg daily Medications REMOVED from [facility] medication list N/A Additional comments: Confirmed meds [...] of source: unable to provide, Pharmacy records: [facility], and [facility] records Medication nonadherence identified: No barriers noted Reconciliation completed: Yes Completed by: KELSI All [facility] medications addressed by KELSI Patient interested in Bedside Delivery Services or using OP Pharmacy at discharge? Yes. Discharge Pharmacy Updated Preferred outpatient pharmacy: [id number] [place] [address] - [address] [facility] [phone] e- [facility] [place] [address] - [address] [facility] 95 - [phone] [facility] [address] [place] [id number] - [phone] [facility] [phone] [place] [address] [place] [id number] [address] [facility] [phone] [place] [address] Pharmacy Allergies: Aspirin Other: See Comments Comment:Kidney [...] day. Facility-Administered Medications: None Irving Garcia RPh [facility]23 NoteHNO ID: [id number] Author: Maurice Kiran MD Service: Nephrology Author Type: Physician Type: Progress Notes Filed: 03/06/2023 3:15 PM Note Text: DAILY NEPHROLOGY SERVICE PROGRESS NOTE PATIENT NAME: Franklin Burton ROOM:[address] [address] [address]* SERVICE DATE: 03/06/2023 SERVICE TIME: 7:28 AM [...] checked. Objective PHYSICAL EXAM: 03/05/23 1717 03/05/23 19203/05/238 03/06/23 0007 BP: 140/72 130/70 126/63 110/60 Pulse: 78 97 88 70 Resp: Temp: 36.5 ?C (97.7 ?F) 37.1 ?C [...] oz) Intake/Output 03/02/23 07 - 03/03/23 0659 03/03/23 07 - 03/04/23 0659 03/04/23 07 - 03/05/23 0659 03/05/23 07 - 03/06/23 0659 Intake (ml) -- 650 -- 770 Output (ml) 400 1400 -- -700 Net (ml) -400 -750 -- 1470 Date 03/05/23 07 - 03/06/23 0659 03/06/23 07 - 03/07/23 0659 Shift 8186-2277 5381-9181 5281-7324 24 Hour Total 8662-0994 0679-8175 1450-6723 24 Hour Total INTAKE PO 120 120 [...] 0.06 0.27 0.25 No results for input(s): FE, TRANSFERSAT, AMANDA, FOLATE, B12 in the last 2160 hours. Recent Labs 03/05/23 0102 INR 1.2 No results for input(s): HGBU, NITRITES, SPGR, UPH, LEUKEST, URBC, UWBC, BACTERIAUR, HYALC in the last 168 hours. No results for input(s): MACREATRAT, UPROT, PCRAT, EOSINSCRN, UCR, SSNA24, UUNUR, SSK24U in the last 2160 hours. Recent Labs 03/03/23 1046 HBSAG Nonreactive No results for input(s): MPAIGG, MPAIGA, MPAIGM, INTP, MPASTF, UMPARSLT, UMPASTREV in the last 720 hours. No results for input(s): CCLUR24, CA24HR, UCITC, UNAT, UOXALC, UURICC in the last 720 hours. Assessment/Plan 76 ye (more content not included)...[facility]10-19-2023 Note HNO ID: [id number] Author: Yair Hassan DO Service: General Surgery Author Type: Resident Type: Progress Notes Filed: 03/06/2023 1:19 PM Note Text: Attestation signed by Ashely Lee MD at 03/26/2023 12:00 PM Attending Note I personally saw and examined the patient. I reviewed the resident's note. I agree with the resident's assessment and plan unless otherwise noted. Signature: Ashely Lee MD Resident Supervision of Medical Student [...] questions or concerns Mon-Fri 6a-5p please page [phone]. After 5pm and on Weekends and Holidays, please page [phone] if in ICU or [phone] if on RNF. SUBJECTIVE: Pt in some [...] (Oral) Resp 18 Ht 172.7 cm (5' 8) Wt 96.5 kg (212 lb 11.2 oz) SpO2 96% BMI 32.34 kg/m? O2 Therapy: Room Air IANDO: Date 03/05/23 0700 - 03/06/23 0659 03/06/23 0700 - 03/07/23 0659 Shift 9555-4049 3714-3332 5848-2260 24 Hour Total 9609-8694 9029-7115 9221-4853 24 Hour Total INTAKE PO 120 120 [...] H PRN - oxymetazoline 0.05 % 2 [employer] (GENASAL) [address] [employer] EACH NOSTRIL BID PRN - calcium carbonate [...] (HCC) 03/03/2023 - D (more content not included)...[facility]10-18-2023 NoteHNO ID: [id number] Author: Cornel Pittman RN Service: Care Management Author Type: Registered Nurse Type: Care Mgt Progress Note Filed: 03/05/2023 4:21 PM Note Text: CARE MANAGEMENT PROGRESS NOTE SERVICE DATE: 03/05/2023 SERVICE TIME: 1615 LOS: 4 days Dialysis approval still pending with [facility]. Will continue to follow. SIGNATURE: Cornel Pittman RN PATIENT NAME: Franklin Burton DATE: March 05, 2023 TIME: 4:18 PM PAGER/CONTACT #: [phone] 03-05-2023 NoteHNO ID: [id number] Author: Chidi Raines MD Service: Hospital Medicine Author Type: Physician Type: Progress Notes Filed: 03/05/2023 12:05 PM Note Text: INTERNAL MEDICINE PROGRESS NOTE Subjective Had surgery this morning. It went well. Abdominal pain 11/25. Nausea is better. No shortness of breath. Objective PHYSICAL EXAM: Vital Signs: BP 146/77 Pulse 79 Temp 36.8 ?C (98.2 ?F) (Oral) Resp 18 Ht 172.7 cm (5' 8) Wt 96.5 kg (212 lb 11.2 oz) SpO2 97% BMI 32.34 kg/m? Body mass index is 32.34 kg/m?. General: No acute distress Pulm: CTAB CV: RRR Abd: Soft, no abdominal tenderness , non-distended. BS+. Neuro: AANDO DATA: LABORATORY TESTS: CBC: Recent Labs 03/03/2345203/01/23 0946 WBC 6.44 7.12 HB 11.0* 10.6* PLT [...] CREAT 2.55* 2.28* 2.82* HEPATIC: Recent Labs 03/05/232 03/04/2303/03/23 0453 03/02/23 0256 03/01/23 0946 ALT -- -- -- -- 14 AST -- -- -- -- 19 TBILI -- -- -- -- 0.4 ALKPHOS -- -- -- -- 125* ALB 3.4* 3.4* 3.3* < > 3.1* TPROT -- -- -- -- 5.3* < > = values in this interval not displayed. URINALYSIS:No results for input(s): SPGR, UBACTERIA, LEUKEST, SSA, UWBC, URBC, UHB, UPROT, UGLUC, UKET in the last 168 hours. Invalid input(s): NITR COAG: Recent Labs 03/05/23 0102 INR 1.2 CARDIAC: No results for input(s): CKMB, CKMBP, TROPT, PBNP in the last 168 hours. Lab Results Component Value Date/Time CULT No growth 3 days 03/02/2023 08:36 AM CULT No growth (<1,000 CFU/ml) 12/08/2012 12:50 PM RADIOLOGY: CT-Brain/Head without Contrast IMPORT Result Date: 02/28/2023 Images were obtained outside of [facility] [facility] CT-Abdomen/Pelvis W IV Cont ONLY IMPORT Result Date: 02/28/2023 Images were obtained outside of [facility] OT-Chest 1 View (Portable) IMPORT Result Date: 02/28/2023 Images were obtained outside of [facility] Assessment/Plan Peritonitis (HCC) (POA: Yes) ESRD [...] 03/01, afebrile since - PD cx at [place] +ve for stenotrophomomas maltophilia. Sensitive to Bactrim, [...] and authenticated by responsible provider. SIGNATURE: Chidi Raines [facility]10-18-2023 NoteHNO ID: [id number] Author: Irving Osorio DO Service: General Surgery Author Type: Resident Type: Progress Notes Filed: 03/05/2023 11:20 AM Note Text: Attestation signed by Ashely Lee MD at 03/26/2023 11:57 AM Attending Note I personally saw and examined the patient. I reviewed the resident's note. I agree with the resident's assessment and plan unless otherwise noted. Signature: Ashely Lee MD Emergency General Surgery Progress Note SERVICE DATE: March 05, 2023 Emergency General Surgery Service Pager: For questions or concerns Mon-Fri 6a-5p please page [phone]. After 5pm and on Weekends and Holidays, please page [phone] if in ICU or [phone] if on RNF. SUBJECTIVE: No acute events [...] (Oral) Resp 18 Ht 172.7 cm (5' 8) Wt 96.5 kg (212 lb 11.2 oz) SpO2 97% BMI 32.34 kg/m? O2 Therapy: Room Air IANDO: Date 03/04/23699 - 03/05/23 0659 03/05/23699 - 10/19/23 0659 Shift 0317-9626 6770-0547 9437-0780 24 Hour Total 1529-3637 5332-2498 4122-2730 24 Hour Total INTAKE IV 250 250 Volume (mL) (eravacycline 100 mg in NaCl 0.9% 250 mL (XERAVA)) 250 250 Shift Total 250 250 OUTPUT Shift Total Weight (kg) 96.5 96.5 96.5 96.5 96.5 96.5 96.5 96.5 MEDICATIONS Current Facility-Administered Medications Medication Dose Route Frequency - metoclopramide HCl 5 mg (REGLAN) 5 mg ORAL q 8 H PRN - oxymetazoline 0.05 % 2 [place] (GE[place]SAL) [address] [place] EACH NOSTRIL BID PRN - calcium carbonate [...] Hospital Problems Diagnosis Date Noted - Peritonitis ([facility]) 03/01/2023 - 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 03/03/2023 - Fever and chills 03/03/2023 - Encounter for long-term (current) use of antibiotics 03/03/2023 - Dialysis patient ([facility]) 03/03/2023 - Dialysis-associated peritonitis ([facility]) 03/03/2023 - ESRD (end stage renal disease) ([facility]) 03/01/2023 - Peritoneal dialysis catheter in situ ([facility]) 03/01/2023 - 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 ([facility]) 03/01/2023 - History of granulomatosis with polyangiitis [...] peritonitis secondary to perit (more content not included)...[facility]10-18-2023 NoteHNO ID: [id number] Author: Cornel Baez APRN.EMERGENCY CREW SUPERVISOR Service: ? Author Type: Nurse Flooring Machine Feeder Type: Anesthesia Procedure Notes Filed: 03/05/2023 9:13 AM Note Text: ANESTHESIOLOGY PROCEDURE NOTE Airway General Information Procedure Start Time/Medication Administration: 03/05/2023 8:50 AM Patient location during procedure: OR Timeout Performed Pre-procedure: timeout performed Consent Obtained: Yes Patient identity confirmed: arm band and patient Staffing Performed by: EMERGENCY CREW SUPERVISOR Indications and Patient Condition Indications for airway [...] attempts at approach: 1 SIGNATURE: Cornel Baez APRN.EMERGENCY CREW SUPERVISOR PATIENT NAME: Franklin Burton DATE: March 05, 2023 TIME: 9:13 AM CSN: [id number]10[facility] NoteHNO ID: [id number] Author: Maurice Kiran MD Service: Nephrology Author Type: Physician Type: Progress Notes Filed: 03/04/2023 5:37 PM Note Text: NEPHROLOGY DIALYSIS NOTE Visit date: 03/04/23, 5:29 PM Patient: Franklin Burton Room number: [id number]* Date of Admit: 02/28/2023 LOS: 3 days Referring physician: Chidi Raines MD Outpatient Motor Polarizer: Daniel Pacheco MD ASSESSMENT: ESRD Anemia of [...] dialysis unit for hemodialysis. He has requested [facility] Dialysis as it is within a few [...] mg, ORAL, q 8 H PRN, Chidi Raines MD, 5 mg at 03/04/23 1616 oxymetazoline 0.05 % 2 [place] (GENASAL), [address] [place], EACH NOSTRIL, BID PRN, Chdii Raines MD calcium carbonate 1,000 mg chewable tab(s) (TUMS), 1,000 mg, ORAL, TID PRN, Chidi Raines MD, 1,000 mg at 03/04/23 1539 oxyCODONE IR 5-10 mg tab(s) (ROXICODONE), 5-10 mg, ORAL, q 6 H PRN, Chidi Raines MD, 10 mg at 03/04/23 0804 levoFLOXacin 500 mg tab(s) (LEVAQUIN), 500 mg, ORAL, q 48 HR, January Hunter MD, 500 mg at 03/04/23 0805 eravacycline 100 mg in NaCl 0.9% 250 mL (XERAVA), 1 mg/kg/dose, INTRAVENOUS, q 12 H, January Hunter MD, Stopped at 03/04/23 0950 metoprolol tartrate (short acting) 12.5 mg tab(s) (LOPRESSOR), 12.5 mg, ORAL, BID, Chidi Raines MD, 12.5 mg at 03/04/23 0806 heparin 5,000 Units injection, 5,000 Units, SUBCUTANEOUS, q 12 H, Chidi Raines MD, 5,000 Units at 03/03/23 0853 senna 17.2 mg tab(s) (SENOKOT), 17.2 mg, ORAL, DAILY, Chidi Raines MD, 17.2 mg at 03/04/23 0805 polyethylene glycol 3350 17 g packet, 17 g, ORAL, DAILY, Chidi Raines MD, 17 g at 03/02/23 0810 nystatin 5 mL oral liquid (MYCOSTATIN), 5 mL, ORAL, QID, Aleyda Wright MD, 5 mL at 03/04/23 1616 pregabalin 25 mg cap(s) (LYRICA), 25 mg, ORAL, BID, Chidi Raines MD, 25 mg at 03/04/23 0806 NaCl 0.9% iv flush bag, 20 mL, INTRAVENOUS, PRN, Sukhdeep Cedeno MD No current [facility]-ordered outpatient medications on file. PHYSICAL EXAMINATION: [...] as of this encounter: 172.7 cm (5' 8). Weight as of this encounter: 96.5 kg [...] is alert. DATA: Recent (more content not included)...[facility]10-17-2023 Note HNO ID: [id number] Author: Cornel Pittman RN Service: Care Management Author Type: Registered Nurse Type: Care Mgt Initial Assessment Filed: 03/04/2023 4:11 PM Note Text: CARE MANAGEMENT: ASSESSMENT AND DISCHARGE PLAN SERVICE DATE: March 04, 2023 SERVICE TIME: 1545 PCP: No primary care provider on file. Primary Contact: Extended Emergency Contact Information Primary Emergency Contact: Kaley Burton Address: [address] [place] [address] Relation: Spouse Secondary Emergency Contact: MathewJohn Brower Relation: Daughter Admission Status: Inpatient Insurance Provider: MEDICARE A AND B Discharge Planning requested by: Per Department Practice Potential Transition Plans Home Advance Directives Current Advance Directive: None Tape Cutter Attempted to Assist with AD Completion: Yes Action: Education Provided Current Living Arrangements and Support Lives with: Spouse/significant other Type of Residence: Private Residence (House) Support: Buddhism/lio community, Family members, Spouse/significant other How do you manage to accomplish the following: Independent: Ambulation;Bathe/Shower;Dress;Meals/Meal Prep;Going to the bathroom;Medication Management;Transportation to appointments/community Current Services/Equipment Current Post-Acute Service(s): DME Current DME Type: Grab bars, Rolling walker Discharge Planning Patient Goal(s): Be able to go home, General wellness [place] of Choice Explained: Are you interested in [...] bedside. Patient from home with , independent [employer]. +Rx, +PCP, +DME, Family able to transport. Current D/c plan for home with self care and family support. [facility], awaiting approval and chair time. Will continue to follow. SIGNATURE: Cornel Pittman RN PATIENT NAME: Franklin Burton DATE: March 04, 2023 TIME: 4:09 PM CONTACT #: [phone] Note HNO ID: [id number] Author: Chidi Rianes MD Service: Hospital Medicine Author Type: Physician Type: Progress Notes Filed: 03/04/2023 2:17 PM Note Text: INTERNAL MEDICINE PROGRESS NOTE Subjective Feeling well today. Feels lousy. Nausea but no vomiting. Lower abdominal pain with movement. Objective PHYSICAL EXAM: Vital Signs: BP 151/81 Pulse 89 Temp 36.8 ?C (98.2 ?F) (Oral) Resp 18 Ht 172.7 cm (5' 8) Wt 96.5 kg (212 lb 11.2 oz) SpO2 97% BMI 32.34 kg/m? Body mass index is 32.34 kg/m?. General: No acute distress Pulm: CTAB CV: RRR Abd: Soft, no abdominal tenderness , non-distended. BS+. Peritoneal dialysis insertion site without warmth or erythema Neuro: AANDO DATA: LABORATORY TESTS: CBC: Recent Labs 03/03/23 0453 03/01/23 0946 WBC 6.44 7.12 HB 11.0* 10.6* PLT [...] -- -- 5.3* URINALYSIS:No results for input(s): SPGR, UBACTERIA, LEUKEST, SSA, UWBC, URBC, UHB, UPROT, UGLUC, UKET in the last 168 hours. Invalid input(s): NITR COAG: No results for input(s): APTT, INR in the last 168 hours. CARDIAC: No results for input(s): CKMB, CKMBP, TROPT, PBNP in the last 168 hours. Lab Results Component Value Date/Time CULT No growth 2 days 03/02/2023 08:36 AM CULT No growth (<1,000 CFU/ml) 12/08/2012 12:50 PM RADIOLOGY: CT-Brain/Head without Contrast IMPORT Result Date: 02/28/2023 Images were obtained outside of [facility] CT-Abdomen/Pelvis W IV Cont ONLY IMPORT Result Date: 02/28/2023 Images were obtained outside of [facility] OT-Chest 1 View (Portable) IMPORT Result Date: 02/28/2023 Images were obtained outside of [facility] Assessment/Plan Peritonitis (HCC) (POA: Yes) ESRD [...] 03/01, afebrile since - PD culture at [place] grew stenotrophomomas maltophilia. Sensitive to Bactrim and [...] and authenticated by responsible provider. SIGNATURE: Chidi Raines, [facility]10-17-2023 NoteHNO ID: [id number] Author: January Hunter MD Service: Infectious Disease Author Type: Physician Type: Progress Notes Filed: 03/04/2023 6:45 PM Note Text: PROGRESS NOTE INFECTIOUS DISEASE Attending seen independently on 03/04 at 1715 BRIEF SUMMARY: This is a 77 YO Frank male who was seen by ID consultation for PD catheter infection. 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 House medicine requested consult based on [place] medical records revealing PD catheter aspirate was [...] (Src) 98.2 (Oral) Resp 18 Ht 5' 8 (1.73m) Wt 212 lb 11.2 oz (96.5kg) SpO2 97% BMI 32.35 kg/(m2). O2 Therapy: Room (more content not included)...[facility] 03-03-2023 NoteHNO ID: [id number] Author: Neris Quezada, RN Service: ? Author Type: Registered Nurse Type: Progress Notes Filed: 03/03/2023 4:17 PM Note Text: Hemodialysis completed, pt tolerated well. See flow sheet. Fluid balance -1000 [facility]10-16-2023 NoteHNO ID: [id number] Author: Chidi Raines MD Service: Hospital Medicine Author Type: Physician Type: Progress Notes Filed: 03/03/2023 12:42 PM Note Text: INTERNAL MEDICINE PROGRESS NOTE Subjective Pain with movement and defecation is unchanged. Patient denies sob, fever, N/V, diarrhea, or dysuria. Objective PHYSICAL EXAM: Vital Signs: BP 149/76 Pulse 94 Temp 36.9 ?C (98.4 ?F) (Oral) Resp 18 Ht 172.7 cm (5' 8) Wt 96.5 kg (212 lb 11.2 oz) [...] 5.93 LYMPHP 8.4 7.4 CHEM: Recent Labs 03/03/2345203/02/2325503/01/2346 NA 134* 131* 134* K 4.7 4.5 4.2 CA 9.0 8.7 8.7 P 2.3* 2.6* 1.9* ANION 10 8* 9 CHLOR 102 101 103 CO2 22 22 22 GLUC 100* 127* 154* BUN 28* 26* 22 CREAT 2.82* 2.94* 2.71* 2.71* HEPATIC: Recent Labs 03/03/2345203/02/2325503/01/2346 ALT -- -- 14 AST -- -- 19 TBILI -- -- 0.4 ALKPHOS -- -- 125* ALB 3.3* 3.1* 3.1* TPROT -- -- 5.3* URINALYSIS:No results for input(s): SPGR, UBACTERIA, LEUKEST, SSA, UWBC, URBC, UHB, UPROT, UGLUC, UKET in the last 168 hours. Invalid input(s): NITR COAG: No results for input(s): APTT, INR in the last 168 hours. CARDIAC: No results for input(s): CKMB, CKMBP, TROPT, PBNP in the last 168 hours. Lab Results Component Value Date/Time CULT No growth 1 day 03/02/2023 08:36 AM CULT No growth (<1,000 CFU/ml) 12/08/2012 12:50 PM RADIOLOGY: CT-Brain/Head without Contrast IMPORT Result Date: 02/28/2023 Images were obtained outside of [facility] CT-Abdomen/Pelvis W IV Cont ONLY IMPORT Result Date: 02/28/2023 Images were obtained outside of [facility] OT-Chest 1 View (Portable) IMPORT Result Date: 02/28/2023 Images were obtained outside of [facility] Assessment/Plan Peritonitis (HCC) (POA: Yes) ESRD [...] 03/01, afebrile since - PD culture at [place] grew stenotrophomomas maltophilia. Sensitive to Bactrim and [...] and authenticated by responsible provider. SIGNATURE: Chidi Raines [facility]10-15-2023 NoteHNO ID: [id number] Author: Chidi Raines MD Service: Hospital Medicine Author Type: Physician [...] (Oral) Resp 18 Ht 172.7 cm (5' 8) Wt 96.5 kg (212 lb 11.2 oz) [...] ABSNEUT 5.93 LYMPHP 7.4 CHEM: Recent Labs 03/02/2325503/01/23 0946 NA 131* 134* K 4.5 4.2 CA 8.7 8.7 P 2.6* 1.9* ANION 8* 9 CHLOR 101 103 CO2 22 22 GLUC 127* 154* BUN 26* 22 CREAT 2.94* 2.71* 2.71* HEPATIC: Recent Labs 03/02/2325503/01/23 0946 ALT -- 14 AST -- 19 TBILI -- 0.4 ALKPHOS -- 125* ALB 3.1* 3.1* TPROT -- 5.3* URINALYSIS:No results for input(s): SPGR, UBACTERIA, LEUKEST, SSA, UWBC, URBC, UHB, UPROT, UGLUC, UKET in the last 168 hours. Invalid input(s): NITR COAG: No results for input(s): APTT, INR in the last 168 hours. CARDIAC: No results for input(s): CKMB, CKMBP, TROPT, PBNP in the last 168 hours. Lab Results Component Value Date/Time CULT Blood culture incubating 03/02/2023 08:36 AM CULT No growth (<1,000 CFU/ml) 12/08/2012 12:50 PM RADIOLOGY: CT-Brain/Head without Contrast IMPORT Result Date: 02/28/2023 Images were obtained outside of [facility] CT-Abdomen/Pelvis W IV Cont ONLY IMPORT Result Date: 02/28/2023 Images were obtained outside of [facility] OT-Chest 1 View (Portable) IMPORT Result Date: 02/28/2023 Images were obtained outside of [facility] Assessment/Plan Peritonitis (HCC) (POA: Yes) ESRD [...] Fever 101.3 03/01 - PD culture at [place] grew stenotrophomomas maltophilia. Sensitive to Bactrim and [...] and authenticated by responsible provider. SIGNATURE: Chidi Raines [facility]10-15-2023 NoteHNO ID: [id number] Author: Aleyda Wright MD Service: Nephrology Author Type: Physician Type: Progress Notes Filed: 03/02/2023 11:17 AM Note Text: [facility] ([facility]) Nephrology Progress HANDP March 02, 2023 10:49 AM Patient: Franklin Burton [id number]* Date of Admit: 02/28/2023 LOS: 1 Referring physician: Chidi Raines MD Outpatient Motor Polarizer: Tara Assessment AND Plan Franklin Burton is a 77 year old male with a past medical history of ESRD on PD, GPA, DM type 2, HTN, HFrEF, BPH, GERD, ROYAL, OA, obesity, RLS, who was transferred from [place] with peritonitis. Chart reviewed. Per notes, PD cell count on 02/27 was WBC 1144, total cell toun 1190, polynuclear 67%. No RBCs. Notes from [place] reviewed: patient presenting with abdominal pain on 10/10 (last PD was on 02/25), fluid analysis [...] starting coverage tomorrow. Signed: Aleyda Martinez MD [facility] ([facility]) Personal Pager: [phone] Office Number: [phone] Office March 01, 2023 10:47 AM History [...] (Oral) Resp 18 Ht 172.7 cm (5' 8) Wt 96.5 kg (212 lb 11.2 oz) SpO2 97% BMI 32.34 kg/m (more content not included)...[facility]10-14-2023 Note HNO ID: [id number] Author: Neris Quezada, RN Service: ? Author [...] Dr Martinez notified and orders for [facility]UB placed[facility]10-14-2023 NoteHNO ID: [id number] Author: Neris Quezada, SEBAS Service: ? Author Type: Registered Nurse Type: Progress Notes Filed: 03/01/2023 2:16 PM Note Text: Attempted to obtain PD fluid sample for culture, no fluid to drain at this time. 500 CC PD solution instilled in order to obtain culture later. Pt c/o severe abdominal pain when solution [facility]illed[facility] 03-01-2023 NoteHNO ID: [id number] Author: Note, Interface Service: ? Author Type: ? Type: Progress Notes Filed: 03/01/2023 5:03 AM Note Text: Epic Scheduled Downtime: 03/01/2023 1:00:00 AM to 03/01/2023 1:28:00 [facility]10-[facility]-2023 Progress note Author Chey Bates [facility] February 28, 2023 9:43am Note Date/Time February 28, 2023 7 :46am [facility] Medical Records Department [address] [facility] [place] [address] Progress Note - Hospitalist 02/28/23 0742 MR#: [id number] Acct: [id number] Name: FRANKLIN BURTON Rep #:[id number] : 1945 77 From: Chey Bates MD PCP: Dr. Matilde Noguera MD Status:ADM IN Location: [place] [address] Reason for Visit Reason for Visit: Diagnoses [...] 84.4 H, Lymph % (Auto) 6.8 L, [place] % (Auto) 6.2, Eos % (Auto) 1.8, [...] transfer to a facility with those capabilities. [facility] accepted, pending transfer #End-stage renal disease on peritoneal dialysis -Patient's family bringing in his old supply and patient verbalized understanding multiple times that they would be responsible for his peritoneal dialysis while he was in the hospital as we do not yet have these capabilities -Daily weights, I's and O's -02/28: We will have HD today pending transfer to [facility] #Macrocytic anemia -Similar to previous, suspect due [...] documentation, 40minutes Charges/Coding Visit Charges Inpatient E&M: 01980 Subs Hosp L2 02/28/23 0943 <Electronically signed by Chey Bates MD> Cosigner Signature (if applicable): CC: ~ Signed [facility] Work Phone: 1(268) 642-675710-13-2023 Consult note Author Chey Bates [facility] February 28, 2023 8:50am Note Date/Time February 27, 2023 1 1:46am [facility] Medical Records Department [address] [place] [address] Pharmacokinetic/Renal -Consult 02/27/23 1146 MR#: [id number] Acct: [id number] Name: FRANKLIN BURTON Rep #:[id number] : 1945 77 From: Jd Shields PCP: Dr. Matilde Noguera MD Status:ADM IN Location: [place] [address] Consult Antibiotic Management Pharmacy has been consulted [...] Date Chey Bates MD CC: ~ Signed [facility] Work Phone: 1(812) 970-580210-12-2023 Consult note Author Jzamyne Smith [facility] February 27, 2023 5:11pm Note Date/Time February 27, 2023 1 0:39am [facility] Medical Records Department [address] [place] [address] Consultation - Nephrology 02/27/23 1026 MR#: [id number] Acct: [id number] Name: FRANKLIN BURTON Rep #:[id number] : 1945 77 From: Ian GAINES PCP: Dr. Matilde Noguera MD Status:ADM IN Location: [place] [address] Documented by User: EDER Gonzalez 02/27/23 10:42 [...] hemodialysis. There is no acute indication for DIRECTOR HEART today. Volume status, potassium and acid-base acceptable. [...] a bowel movement since at least Friday. 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 Mild age-related atrophy. 2. Minimal maxillary sinus mucosal disease. 3. No hemorrhage or other acute intracranial abnormality. Electronically Signed: Darien Cole MD at 5:32 EDT Reading Location ID and State: [facility] / [place] Tel , Service support , Documented by User: Dr. Jazmyne Smith [...] hemodialysis. There is no acute indication for DIRECTOR HEART today. Volume status, potassium and acid-base acceptable. CT scan abdomen reviewed, CXR clear. Patient has received IV antibiotics, vancomycin ceftriaxone. Cefepime ordered. Patient is constipated therefore we will give lactulose until good bm. Further orders forthcoming as hospitalization evolves, thank you for allowing us to participate in the care ofMr. Burton. alisha BLOOD OR BLOOD BANK TECHNICIAN ESRD on HD. recently started PD. 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 Matilde Noguera MD; Dr. Jazmyne Smith MD~ Signed [facility] Work Phone: 1(916) 235-838210-12-2023 History and physical note Author Chey Bates [facility] February 27, 2023 8:18am Note Date/Time February 27, 2023 8 :05am [facility] Medical Records Department [address] [place] [address] H&P Exam - Hospitalist 02/27/23 08 MR#: [id number] Acct: [id number] Name: FRANKLIN BURTON Rep #:[id number] : 1945 77 From: Chey Bates MD PCP: Dr. Matilde Noguera MD Status:ADM IN Location: [facility] [id number] HPI - General General Date of Admission: 02/27/23 Date of Service: 02/27/23 Chief Complaint: Abd pain, gen weakness HPI Narrative FRANKLIN BURTON, is a 77-year-old male with end-stage renal disease on peritoneal dialysis since July and hemodialysis before, BPH, heart failure withpreserved ejection fraction who presented to [facility] 02/27/2023 after he woke up on the [...] peritonitis. 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 Matilde Noguera MD; Dr. Chey Bates MD~ Signed [facility] Work Phone: 1(923) 142-212210-12-2023 Discharge summary Author Tha Leblanc [facility] February 27, 2023 7:30am Note Date/Time February 27, 2023 4 :37am [facility] Medical Records Department [address] [place] [address] Emergency Department Summary 02/27/23 MR#: [id number] Acct: [id number] Name: FRANKLIN BURTON Rep #:[id number] : 1945 77 From: Tha Leblanc [...] sure. Patient denies any other symptoms recently. 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 I discussed with his check out cashier Dr. Pacheco, who does not come to this hospital which I did not realize, he states usually the [facility] sees his patient so I [...] 89.2 H Lymph % (Auto) 4.9 L [place] % (Auto) 4.6 Eos % (Auto) 0.6 [...] Clarity Clear Urine pH 7.0 Ur Specific [place] 1.005 Urine Protein 30 H Urine Glucose [...] Management Discussion w/another healthcare provider: Hospitalist and Pipe Processor (nephrologySarah Anne) Discharge Plan Triage Chief Complaint: [...] your Primary Care Provider. Call [facility] ([phone]) or report to the closest Emergency Room. Call 911 if necessary. 02/27/23 0730 <Electronically signed by Tha Leblanc MD> Cosigner Signature (if applicable): CC: Dr. Matilde Noguera MD ~ Signed [facility] Work Phone: [phone] [id number] Discharge summary Author Tha Leblanc [facility] February 27, 2023 7:30am Note Date/Time February 27, 2023 4 :37am [facility] Medical Records Department [address] [place] [address] Emergency Department Summary 02/27/23 MR#: [id number] Acct: [id number] Name: FRANKLIN BURTON Rep #:[id number] : 1945 77 From: Tha Leblanc [...] sure. Patient denies any other symptoms recently. 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 I discussed with his check out cashier Dr. Pacheco, who does not come to this hospital which I did not realize, he states usually the [facility] sees his patient so I [...] 89.2 H Lymph % (Auto) 4.9 L [place] % (Auto) 4.6 Eos % (Auto) 0.6 [...] Clarity Clear Urine pH 7.0 Ur Specific [place] 1.005 Urine Protein 30 H Urine Glucose [...] Management Discussion w/another healthcare provider: Hospitalist and Pipe Processor (nephrologySarah Anne) Discharge Plan Triage Chief Complaint: [...] your Primary Care Provider. Call [facility] ([phone]) or report to the closest Emergency Room. Call 911 if necessary. 02/27/23 0730 <Electronically signed by Tha Leblanc MD> Cosigner Signature (if applicable): CC: Dr. Matilde Noguera MD ~ Signed [facility] Work Phone: 1(629) 109-956308-15-2023 Miscellaneous Notes* Perioperative Nursing Note - Freda [...] not included. ELROY THOMAS MD , FACS, [facility] MINIMALLY INVASIVE & METABOLIC / BARIATRIC SURGERY [facility] GROUP OPERATIVE REPORT 12/31/2022 PATIENT: Franklin Burton DATE OF : 1945 PROCEDURE: LAPAROSCOPIC PERITONEAL DIALYSIS CATHETER PLACEMENT (78542) LAPAROSCOPIC OMENTOPEXY (82041) SURGEON: Elroy Thomas MD RAZOR SHARPENER: Allison Torres MD. - Dr. Allison Torres [...] standard surgical fashion. An operating room team time out was performed confirming the identity of the [...] around the edge of the omentum in niichb-jb-uqaeh fashion and pulled out in the right [...] entire duration of the procedure. Additional Informantion: Motor Polarizer: * Brief Op Note - Allison Torres MD - 12/31/2022 1:42 PM EDT Date: 12/31/2022 Location: [facility] OR Name: Franklin Burton, : 1945, Diagnosis Pre-op Diagnosis * End stage renal disease (HCC) [N18.6] Post-op Diagnosis * End stage renal disease (HCC) [N18.6] Procedures LAPAROSCOPIC CONTINUOUS AMBULATORY PERITONEAL DIALYSIS CATHETER PLACEMENT WITH OMENTOPEXY, 04904 - TX LAPS INSERTION TUNNELED INTRAPERITONEAL CATHETER LAPAROSCOPY WITH OMENTOPEXY (OMENTAL TACKING PROCEDURE) 44754 - [place] LAPAROSCOPY W/OMENTOPEXY Surgeons * Elroy Thomas - Primary Procedure Summary Anesthesia: General ASA: III Estimated Blood Loss: Minimal Drains: Urethral Catheter (Active) Staff: Balance Wheel Screw Hole Tapper: Shobha Zapien RN Scrub Person: Adilia Espinosa [...] receiving Vancomycin or flouroquinolone) documented in this [facility]08-15-2023 Note* Perioperative Nursing Note - Freda Avila RN - 12/31/2022 4:00 PM EDT Pt ambulated in hallway with RN denies dizziness/nausea. Pt changed. INT removed. Pending pt son toarrive for dc. [facility] [id number] Note* Perioperative Nursing Note - Freda Avila RN - 12/31/2022 3:10 PM EDT Family/visitor at bedside with patient. Discharge information given to the . Patient and family verbalized understanding of information. All questions were answered before discharge. Tolerating PO fluids and crackers. Vital signs are stable. [facility] [id number] Attending History and physical note* Elroy Thomas [...] WITH OMENTOPEXY (OMENTAL TACKING PROCEDURE) (Abdomen) Location: [address] Operating Room Surgeons: Elroy Thomas MD [...] prior to above procedure. Patient presented to [facility] with his in no acute physical distress. He reports several years with CKD and is currently receiving HD through his MILDRED AV fistula. Patient states hewould like to start getting treatments at home because he has to drive a long distance. Last OV with Elroy Thomas MD 12/16/2022. He denies sob, cp, palpitations, abdominal discomfort, n/v/d/c fever or chills. Denies history of OK, CAD, CHF, TIA, CVA, diabetes, seizures, strokes. Past Medical History: Past Medical History: No date: Allergic rhinitis No date: BPH (benign prostatic hyperplasia) No date: CHF (congestive heart failure) ([facility]) ([facility]) No date: Chronic back pain No date: Chronic kidney disease 06/05/2020: Chronic systolic heart failure ([facility]) ([facility]) spring 2014: Compression fracture Comment: T12 07/24/2016: Diabetes mellitus without complication ([facility]) ([facility]) Comment: no diabetes No date: GERD (gastroesophageal reflux disease) No date: [place] (hard of hearing) Comment: 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 No date: Hypertension No date: Obesity No date: ROYAL (obstructive sleep apnea) No date: Osteoarthritis No date: Restless legs syndrome 03/19/2016: Status post right hip replacement 07/24/2016: Urge incontinence No date: 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[facility]) Past Surgical History: Past Surgical History: No [...] TRANSURETHRAL RESECTION OF PROSTATE Comment: Button TURP. Spear 01/02/2016: UPPER GASTROINTESTINAL ENDOSCOPY Comment: gasttitis, duodentits, [...] capsules by mouth every other day. M-W-F gabapentin (Neurontin) 100 MG capsule Take 2 capsules by mouth Nightly. metoprolol tartrate (Lopressor) 25 MG tablet Take 1 tablet by mouth in the morning and 1 tablet before bedtime. nystatin (Mycostatin) 935407 UNIT/ML suspension omeprazole (PriLOSEC) [address] [...] morning. [DISCONTINUED] cholecalciferol (Vitamin D-3) 1.25 MG (45827 UT) capsule Take by mouth. [DISCONTINUED] fluticasone [...] this time EKG: ordered and reviewed per [facility] protocol ? EK02/14/2021 ECHO and EF:Echo 12/14/2019 EF 60% METS <4 sob NO CP. Does not have to stop Electronically signed by: Destiny Muir APRN - BLOOD OR BLOOD BANK TECHNICIAN Date: 12/24/2022 at 1:33 PM [facility] Work Phone: 1(645) 387-128408-15-2023 Note* Op Note - Elroy Thomas MD - 12/31/2022 1:42 PM EDT Images from the original note were not included. ELROY THOMAS MD , FACS, [place] MINIMALLY INVASIVE & METABOLIC / BARIATRIC SURGERY [facility] OPERATIVE REPORT 12/31/2022 PATIENT: Franklin Burton DATE OF : 1945 PROCEDURE: LAPAROSCOPIC PERITONEAL DIALYSIS CATHETER PLACEMENT (55405) LAPAROSCOPIC OMENTOPEXY (27961) SURGEON: Elroy Thomas MD RAZOR SHARPENER: Allison Torres MD. - Dr. Allison Torres [...] standard surgical fashion. An operating room team time out was performed confirming the identity of the [...] around the edge of the omentum in itevtc-cn-eakyz fashion and pulled out in the right [...] entire duration of the procedure. Additional Informantion: Motor Polarizer: [facility] [id number] Note* Brief Op Note - Allison Torres MD - 12/31/2022 1:42 PM EDT Date: 12/31/2022 Location: [facility] OR Name: Franklin Burton, : 1945, Diagnosis Pre-op Diagnosis * End stage renal disease (HCC) [N18.6] Post-op Diagnosis * End stage renal disease (HCC) [N18.6] Procedures LAPAROSCOPIC CONTINUOUS AMBULATORY PERITONEAL DIALYSIS CATHETER PLACEMENT WITH OMENTOPEXY, 83769 - TX LAPS INSERTION TUNNELED INTRAPERITONEAL CATHETER LAPAROSCOPY WITH OMENTOPEXY (OMENTAL TACKING PROCEDURE) 62229 - [place] LAPAROSCOPY W/OMENTOPEXY Surgeons * Elroy Thomas - Primary Procedure Summary Anesthesia: General ASA: III Estimated Blood Loss: Minimal Drains: Urethral Catheter (Active) Staff: Balance Wheel Screw Hole Tapper: Shobha Zapien RN Scrub Person: Adilia Espinosa [...] (two hours if receiving Vancomycin or flouroquinolone) [facility] [id number] History and physical note* Elroy Thomas MD - 12/31/2022 1:42 PM EDT H&P reviewed. The patient was examined and there are no changes to the H&P. Source Note - Destiny MuirDENISHA - BLOOD OR BLOOD BANK TECHNICIAN - 12/24/2022 1:30 PM EDT Images from the original note were not included. Comprehensive Pre Surgical History and Physical ? Name: Franklin Burton : 1945 (Age-77 y.o.) Date of Service: Pt seen/examined on 12/24/2022 Procedure Information Date/Time: 12/31/22 1430 Procedures: LAPAROSCOPIC CONTINUOUS AMBULATORY PERITONEAL DIALYSIS CATHETER PLACEMENT WITH OMENTOPEXY, POSSIBLEOPEN (Abdomen) LAPAROSCOPY WITH OMENTOPEXY (OMENTAL TACKING PROCEDURE) (Abdomen) Location: [facility] OR [address] [place] [address] Operating Room Surgeons: Elroy Thomas MD Chief [...] prior to above procedure. Patient presented to [facility] with his in no acute physical distress. He reports several years with CKD and is currently receiving HD through his MIL[facility] AV fistula. Patient states hewould like to start getting treatments at home because he has to drive a long distance. Last OV with Elroy Thomas MD 12/16/2022. He denies sob, cp, palpitations, abdominal discomfort, n/v/d/c fever or chills. Denies history of OK, CAD, CHF, TIA, CVA, diabetes, seizures, strokes. Past Medical History: Past Medical History: No date: Allergic rhinitis No date: BPH (benign prostatic hyperplasia) No date: CHF (congestive heart failure) ([facility]) ([facility]) No date: Chronic back pain No date: Chronic kidney disease 06/05/2020: Chronic systolic heart failure ([facility]) ([facility]) spring 2014: Compression fracture Comment: T12 07/24/2016: Diabetes mellitus without complication ([facility]) ([facility]) Comment: no diabetes No date: GERD (gastroesophageal reflux disease) No date: [place] (hard of hearing) Comment: 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 No date: Hypertension No date: Obesity No date: ROYAL (obstructive sleep apnea) No date: Osteoarthritis No date: Restless legs syndrome 03/19/2016: Status post right hip replacement 07/24/2016: Urge incontinence No date: 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HCC) Past Surgical History: Past Surgical History: No [...] TRANSURETHRAL RESECTION OF PROSTATE Comment: Button TURP. Spear 01/02/2016: UPPER GASTROINTESTINAL ENDOSCOPY Comment: gasttitis, duodentits, [...] capsules by mouth every other day. M-W-F gabapentin (Neurontin) 100 MG capsule Take 2 capsules by mouth Nightly. metoprolol tartrate (Lopressor) 25 MG tablet Take 1 tablet by mouth in the morning and 1 tablet before bedtime. nystatin (Mycostatin) 177243 UNIT/ML suspension omeprazole (PriLOSEC) [address] [...] morning. [DISCONTINUED] cholecalciferol (Vitamin D-3) 1.25 MG (83599 UT) capsule Take by mouth. [DISCONTINUED] fluticasone [...] Electronically signed by: Destiny Muir APRN - MIGDALIA Date: 12/24/2022 at 1:33 PM documented in this [facility]08-15-2023 Hospital Discharge instructions* Discharge Instructions* Allison Torres MD - 12/31/2022 9:25 AM EDT Images from the original note were not included. ELROY THOMAS MD , FACS, [facility] MINIMALLY INVASIVE & METABOLIC / BARIATRIC SURGERY [facility] DISCHARGE INSTRUCTIONS 12/31/2022 PATIENT: Franklin Burton [...] -Chest pain. -Abdominal distention. Y THOMAS MD, JAZZMINE THOMPSON Regulatory Internship - Weight Management [place] / [facility] Corporate Strategist - Advanced GI MIS, Foregut and Bariatric Surgery Fellowship ---[facility]--- documented in this [facility]08-03-2023 Telephone encounter Note* Telephone Encounter - Lastmarcus Saenz - 12/19/2022 12:47 PM EDT Message released to patient as written. Patient's further questions if applicable: n/a Were all questions from office addressed or relayed to the patient from encounter: Yes [id number] Miscellaneous Notes* Telephone Encounter - Lastmarcus Saenz - 12/19/2022 12:47 PM EDT Message released to patient as written. Patient's further questions if applicable: n/a Were all questions from office addressed or relayed to the patient from encounter: Yes documented in this encounterSMarietta Memorial [id number] Telephone encounter Note* Telephone Encounter - Niurka Hall MA - 12/18/2022 2:04 PM EDT I called back and got voicemail. If she calls back please give dates and times for PAT and surgery [id number] Miscellaneous Notes* Telephone Encounter - Niurka Hall [...] 4:[address] Pacheco is patient's check out cashier so if he is clearing him, then he can be evaluated by Dr Thomas. Patient's daughter cancelled appt until patient was evaluated for MRSA * Telephone Encounter - Lacey Collins - 12/10/2022 3:[address] Gallego's office called and states that they spoke the Motor Polarizer and was informed that due to the level of mcclelland patient has is so small that he would not be treated and that he can have surgery. Their number is [phone] and Motor [employer]izer pager number is [phone] I spoke to Mohan and she said [...] mcclelland. She states understanding documented in this encounterSMarietta Memorial HospitalYqefdi33-11-3268 Telephone encounter Note* Telephone Encounter - Lyndsey Diaz - 12/18/2022 1:09 PM EDT Pt 's daughter returning call. [place] [id number] Telephone encounter Note* Telephone Encounter - Niurka Hall MA - 12/18/2022 9:32 AM EDT LMVM to return call to go over surgical itinerary [place] [id number] Telephone encounter Note* Telephone Encounter - Niurka Hall MA - 12/17/2022 3:48 PM EDT LMVM to go over surgical Itinerary [id number] Miscellaneous Notes* Telephone Encounter - Niurka Hall [...] 4:[address] Pacheco is patient's check out cashier so if he is clearing him, then he can be evaluated by Dr Thomas. Patient's daughter cancelled appt until patient was evaluated for MRSA * Telephone Encounter - Lacey Collins - 12/10/2022 3:[address] Gallego's office called and states that they spoke the Motor Polarizer and was informed that due to the level of mcclelland patient has is so small that he would not be treated and that he can have surgery. Their number is [phone] and Motor [employer] pager number is [phone] I spoke to Mohan and she said [...] mcclelland. She states understanding documented in this [facility]07-31-2023 History of Present illness Narrative* Erika Cornell MA - 12/16/2022 1:45 PM EDT * Elroy Thomas MD - 12/16/2022 1:45 PM EDT Images from the original note were not included. ELROY THOMAS MD , FACS, [facility] ADVANCED LAPAROSCOPIC - ROBOTIC & BARIATRIC SURGERY [facility] HISTORY AND PHYSICAL 12/18/22 PATIENT: Franklin [...] (benign prostatic hyperplasia) CHF (congestive heart failure) ([facility]) ([facility]) Chronic back pain Chronic kidney disease Chronic systolic heart failure ([facility]) ([facility]) 06/05/2020 Compression fracture spring 2014 T12 Diabetes mellitus without complication ([facility]) ([facility]) 07/24/2016 no diabetes GERD (gastroesophageal reflux disease) [place] (hard of hearing) 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 Hypertension Obesity ROYAL (obstructive sleep apnea) Osteoarthritis Restless legs syndrome Status post right hip replacement 03/19/2016 Urge incontinence 07/24/2016 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[facility]) Past Surgical History: Procedure Laterality Date CATARACT [...] before bedtime. cholecalciferol (Vitamin D-3) 1.25 MG (49127 UT) capsule Take by mouth. gabapentin (Neurontin) 100 MG capsule Take 2 capsules by mouth Nightly. metoprolol tartrate (Lopressor) 25 MG tablet Take 1 tablet by mouth in the morning and 1 tablet before bedtime. nystatin (Mycostatin) 825151 UNIT/ML suspension omeprazole (PriLOSEC) [address] [...] 37 C (98.6 F) (Temporal) Ht 5' 8 (1.727 m) Wt 210 lb (95.3 kg) [...] ileus, the risks of general anesthetic including OK, CVA, sudden or even reaction to anesthetic [...] 30 minutes for this office visit in iptw-rr-kpso discussion, counseling of this patient, reviewing medical records and documenting the encounter. Y THOMAS MD, [facility], [facility] Regulatory Internship -[facility]ariatric Care Center - Weight Management [place] Corporate Strategist - Advanced GI MIS and Bariatric Surgery Fellowship ---[facility]--- Patient Care Team: Rahel Mendez MD as PCP - General hf documented in this encounterSMarietta Memorial [id number] Telephone encounter Note* Telephone Encounter - Niurka Hall MA - 12/12/2022 8:07 AM EDT I spoke with patients daughter, She states she will contact nephrology and call us when patient is ready to schedule. FYI [facility] [id number] Miscellaneous Notes* Telephone Encounter - Niurka Hall MA - 12/12/2022 8:07 AM EDT I spoke with patients daughter, She states she will contact nephrology and call us when patient is ready to schedule. FYI * Telephone Encounter - Sherri Rodriguez PA-C - 12/10/2022 4:[address] Pacheco is patient's check out cashier so if he is clearing him, then he can be evaluated by Dr Thomas. Patient's daughter cancelled appt until patient was evaluated for MRSA * Telephone Encounter - Lacey Collins - 12/10/2022 3:[address] Gallego's office called and states that they spoke the Motor Polarizer and was informed that due to the level of mcclelland patient has is so small that he would not be treated and that he can have surgery. Their number is [phone] and [employer] pager number is [phone] I spoke to Mohan and she said [...] he is done with his treatment for mcclellnad. She states understanding documented in this [facility]07-25-2023 Telephone encounter Note* Telephone Encounter - Sherri Rodriguez PA-C - 12/10/2022 4:[address] Pacheco is patient's check out cashier so if he is clearing him, then he can be evaluated by Dr Thomas. Patient's daughter cancelled appt until patient was evaluated for MRSA [employer] Phone: 1(445) 157-167607-25-2023 Telephone encounter Note* Telephone Encounter - Lacey Collins - 12/10/2022 3:[address] Gallego's office called and states that they spoke the Motor Polarizer and was informed that due to the level of mcclelland patient has is so small that he would not be treated and that he can have surgery. Their number is [phone] and [employer] pager number is [phone] I spoke to Mohan and she said jennifer Polanco to cancel but Dr Gallego's office garcia not want it cancelled [facility] [id number] Telephone encounter Note* Telephone Encounter - Mohan Simms MA - 12/02/2022 10:52 AM EDT Pt 's daughter called in saying that pt's PCP says that he has mcclelland and is canceling his appt. I told her to back once he is done with his treatment for mcclelland. She states understanding [facility] [id number] History of Present illness Narrative* Angela Vasques APRN.BLOOD OR BLOOD BANK TECHNICIAN - 12/01/2022 11:49 AM EDT Images from [...] Constitutional: Appearance: Normal appearance. HENT: Mouth/Throat: Lips: [place]. Mouth: Mucous membranes are dry. Pharynx: Posterior [...] analgesia. - Discussed expected course of illness Angela Vasques APRN.MIGDALIA documented in [facility]07-16-2023 Instructions* Patient Instructions* Angela Vasques APRN.CNP - 12/01/2022 11:48 AM EDT [...] analgesia. - Discussed expected course of illness Angela Vasques APRN.BLOOD OR BLOOD BANK TECHNICIAN documented in this [facility]06-24-2023 Procedure [facility]02-07-2023 Procedure [facility]02-07-2023 Procedure [facility]02-07-2023 History and physical note Author Dr. Davidson [facility] June 25, 2022 8:36am Note Date/Time June 25, 2022 8 :36am [facility] Medical Records Department [address] [place] [id number] History & Physical Exam 06/25/22 0836 MR#: [id number] Acct: [id number] Name: FRANKLIN BURTON Rep #:[id number] : 1945 76 From: Julio Davidson MD PCP: Dr. Matilde Noguera MD Status:[facility] Location: [place] [address] History and Physical Date of Admission: 06/25/22 [...] .Q6 PRN PRN Pain 02/13/22 [History Confirmed 06/14/22] patiromer calcium sorbitex 8.4 gram oral powder packet (Veltassa) 8.4 g PO DAILY02/13/22 [History Confirmed 06/14/22] PFSH Medical History?(Updated 06/14/22 @ 05:[address] [...] house 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 status:? 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 Former smoker quit date: 07/26/81 [...] Noguera MD; Dr. Julio Davidson MD~ Signed [facility] Work Phone: 1(970) 292-530412-08-2020 NoteEmergency Medicine Attending Note I performed a history and physical examination on this patient and discussed the management plans with the manager advanced. History 74 year old male complains of generalized weakness over the last 2-3 days. He has had a low-grade fever. States 10 days ago he had a prostate surgery. He states over the last few weeks his Zach's granulomatosis has worsened. No cough. Always has pain on urination. Denies chest pain exposure to [place] it or shortness of breath. Able to [...] are mis-transcribed.) MD Cornel Chu MD 04/25/[address] [place], [place] 6748411-20-2020 Note48 Hour Discharge Summary Note Patient ID: Franklin Burton [id number] 74 y.o. 1945 Admit date: 04/06/2020 Discharge [...] Discharge Medications: Franklin Burton Home Medication Instructions TIM:[id number] Printed on:04/07/20 8151 Medication Information albuterol sulfate HFA 108 (90 [...] 1 tablet by mouth [address] [facility] Devices [facility] Shower chair. Use prn bathing. mupirocin (BACTROBAN) [...] by mouth 2 times daily [facility]Reason for visit Narrative* Chief Complaint COVID, WEAKNESS, CON FUSION Reason for Visit COVID-19 Encephalopathy acute Weakness Hyperkalemia Chronic kidney failure [facility] Work Phone: Consult note Author Dr. Decker [facility] November 09, 2022 8:01am Note Date/Time November 09, 2022 8:01 am [facility] Medical Records Department [address] [place] [address] Consultation - Urology 11/09/22 0758 MR#: [id number] Acct: [id number] Name: FRANKLIN BURTON Rep #:[id number] : 1945 77 From: Kael Decker [...] catheterize him as well advance an 18 Setswana catheter through the urethra and then somewherein the prostate the catheter was not getting into the bladder did not force it remove the catheter I tried to place a wire x2 with no success so we will have to do a surgical procedure to place a catheter. 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 Matilde Noguera MD~ Signed [facility] Work Phone: Consult note Author Evan Groves [facility] Note Date/Time February 23, 2025 1: 28pm [facility] Medical Records Department [address] [place] [address] Anesthesia Postop Eval I 02/23/251326 MR#: [id number] Acct: [id number] Name: FRANKLIN BURTON Rep #:[id number] 5 : 1945 79 From: Evan Groves CRNA PCP: Kyler Garcia MD Status:REG SDC Y Race: C Location: [place] [address] Anesthesia: Postop Eval I Current Vital Signs Temperature: 98.1 F Pulse Rate: 80 Blood Pressure: 127/72 Respiratory Rate: 16 Pulse Ox: 98 Assessment Airway patent: Yes Spontaneous unlabored respirations: Yes nausea: No Vomiting: No Anesthesia Complication: No Fluid Hydration Crystalloid volume administer (ml): 300 Total IV fluid infused: 300 Progress Note Anesthesia document: Postop Eval 1 completed: Yes 02/23/251327 <Electronically signed by Evan whitlock CRNA> Date _ Evan Contreras Signature: Date CC: ~ Signed [facility] Work Phone: Discharge summary Author [facility] November 27, 2022 6:18am Note Date/Time November 27, 2022 6:06 am [facility] Medical Records Department [address] [place] [address] Emergency Department Summary 11/27/22 MR#: [id number] Acct: [id number] Name: FRANKLIN BURTON Rep #:[id number] 2 : 1945 77 From: Beau Cardenas [...] he does not feel he has been completely emptying his bladder. He reports that he believes he last had a small amount of urination last night November 26 around 9 PM. 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 Call [facility] ([phone]) or report to the closest Emergency Room. Call 911 if necessary. 11/27/2218 <Electronically signed by Beau Cardenas DO> Cosigner Signature (if applicable): CC: Dr. Matilde Noguera MD ~ Signed [facility] Work Phone: Evaluation note* Diagnosis Encounter for other preprocedural examination Chronic kidney disease, stage 4 (severe) (HCC) documented in this encounter [facility] Work Phone: Evaluation note* Diagnosis Onset Date Resolution Status COVID-19 acute Encephalopathy acute acute Weakness acute Hyperkalemia acute Chronic kidney failure chron ic [facility] Work Phone: Evaluation note* Diagnosis Onset Date Resolution Status Chronic neuropathic pain acu te Chronic kidney failure chron ic Chronic systolic heart failure chronic Essential hypertension chron ic 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 Prediabetes chronic Zach's granulomatosis chr onic Screening for colon cancer n oneactive Family history of colon cancer noneactive Actinic keratoses noneactive Establishing care with new doctor, encounter for noneactive Heartburn noneactive Left ankle pain noneactive Family history of malignant neoplasm of colon acute GERD (gastroesophageal reflux disease) acute [facility] Work Phone: Evaluation note* Diagnosis Onset Date Resolution Status Chronic neuropathic pain acu te Chronic kidney failure chron ic Chronic systolic heart failure chronic Essential hypertension chron ic 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 Prediabetes chronic Zach's granulomatosis chr onic [...] onic Heartburn noneactive Left ankle pain noneactive [facility] Work Phone: Evaluation note* Diagnosis Onset Date Resolution Status Chronic neuropathic pain acu te Essential hypertension chron ic Zach's granulomatosis chr onic Heartburn noneactive Left ankle pain noneactive [facility] Work Phone: Evaluation note* Diagnosis Sore throat- Primary Acute pharyngitis Thrush (oral) [facility] ESRD (end stage renal disease) (HCC)- Primary End stage renal disease End stage renal disease (HCC) End stage renal disease [facility] Peritoneal dialysis catheter in place (CMS/HCC) (HCC)- Primary [facility] Diagnosis Onset Date Resolution Status Chronic neuropathic pain acu te Essential hypertension chron ic Zach's granulomatosis chr onic Heartburn noneactive Chronic neuropathic pain acu te Skin growth noneactive Actinic keratosis noneactive Peritoneal dialysis catheter in place noneactive Acute encephalopathy acute Acute peritonitis acute ESRD on peritoneal dialysis acute [facility] Work Phone: Evaluation note* Diagnosis Onset Date [...] failure chron ic Essential hypertension chron ic [facility] Work Phone: Evaluation note* Diagnosis Onset Date [...] weakness noneact gavi Hospital discharge follow-up noneactive [facility] Work Phone: Evaluation note* Diagnosis Onset Date [...] (end stage renal disease) on dialysis noneactive [facility] Work Phone: Evaluation note* Diagnosis Onset Date [...] (end stage renal disease) on dialysis noneactive [facility] Work Phone: Evaluation note* Diagnosis 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, initial encounter ([facility]) H/O total hip arthroplasty, right Trochanteric bursitis of right hip [facility] 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, initial encounter ([facility]) [facility]* Diagnosis Onset Date Resolution Status Chronic [...] gavi Skin lesion noneactive Skin tear noneactive [facility] Work Phone: Evaluation note* Diagnosis Stroke-like symptoms- Primary Stroke-like symptom 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 ([facility]) Hypertension secondary to other renal disorders Stroke-like symptoms Encephalopathy, unspecified type Cognitive impairment Unspecified persistent mental disorders due to conditions classified elsewhere Debility Unspecified debility Neuropathy Mononeuritis of unspecified site Stroke-like symptom [facility] Diagnosis Encounter to establish care- Primary Other reasons for seeking consultation Screening for depression Encounter for screening examination for other mental health and behavioral disorders Gross hematuria ESRD (end stage renal disease) ([facility]) End stage renal disease 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 ([facility]) Encounter for health-related screening Chronic heart failure, unspecified heart failure type ([facility]) ROYAL (obstructive sleep apnea) Obstructive sleep apnea (adult) (pediatric) Heart failure with preserved ejection fraction, unspecified HF chronicity ([facility]) Chronic midline low back pain without sciatica Chronic illness Other unknown and unspecified cause of morbidity or mortality Bilateral hearing loss, unspecified hearing loss type Encounter for screening for malignant neoplasm of prostate Special screening for malignant neoplasm of prostate Encounter for screening for cardiovascular disorders Screening for other and unspecified cardiovascular conditions Hyperlipidemia, unspecified hyperlipidemia type Benign prostatic hyperplasia without lower urinary tract symptoms Neuropathy Mononeuritis of unspecified site Chronic insomnia Insomnia, unspecified Gastroesophageal reflux disease, unspecified whether esophagitis present Recurrent UTI (urinary tract infection) Urinary tract infection, site not specified Type 2 diabetes mellitus with diabetic neuropathy, without long-term current use of insulin (HCC) Elevated PSA Elevated prostate specific antigen (PSA) [facility] Diagnosis 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 Sarath Decker to be reevaluated and to determine when he will remove your Osorio catheter. Any problems with the Osorio catheter such as its not working, not draining or leaking follow-up with his office or return to the emergency department.[facility] Work Phone: Hospital Discharge instructions Additional Instructions Please contact Dr. Decker's office to schedule a repeat evaluation and if you have any worsening of symptoms or return of obstruction [facility] Work Phone: Hospital Discharge instructions Additional Instructions Please keep the area clean and dry. Follow-up outpatient.[facility] Work Phone: Hospital Discharge instructionsAdditional Instructions You have a urinary tract infection. A urine culture will be sent. Will start you on antibiotics Cipro 1 pill twice a day for 10 days. Call and follow-up with your urologist as soon as possible. If the blood does not clear up sometimes will consider doing a cystoscopy whether go on your bladder and look with the scope. Plenty of fluids to prevent clotting. Urinate frequently. If the bleeding gets a lot worse or you are unable to urinate return we may have to place a Osorio catheter. We do not have to at this time.[facility] Work Phone: Reason for referral (narrative)No reason for referral information availableWSt. [facility] Work Phone: Reason for visit Narrative* Auth/Cert (Routine) Specialty Diagnoses / Procedures Referred By Contac t Referred To Contact Diagnoses Stroke-like symptoms AMS Procedures .. 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 ACP-Advance Directive ACP-Power of Registered Mail Clerk Latest Code Status on File Code Status [...] Documents on File Type Date Recorded 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 ACP-Advance Directive ACP-Power of Registered Mail Clerk 12/11/2020 11:32 AM Advance Directive Response Recorded Date/ Time Advance Directives Yes November 12 7:05am Living Will Yes January 18 7:17pm Power of Registered Mail Clerk No January 18, 2022 7:17pm Advance Directive Response Recorded Date/ Time Name of Medical Power of Registered Mail Clerk Leonarda Carmona ([email or web address]) January 18, 2022 11:45pm Advance Directives Yes November 12 7:05am Living Will Yes January 18 11:45pm Power of Registered Mail Clerk Yes January 18, 2022 11:45pm Advance Directive Response Recorded Date/ Time Name of Medical Power of Registered Mail Clerk CORTES CARMONA June 20, 2022 10:58am Advance Directives Yes November 12 6:05am Living Will Yes June 20 10:58am Power of Registered Mail Clerk Yes June 20, 2022 10:58am Advance Directive Response Recorded Date/ Time Name of Medical Power of Registered Mail Clerk CORTES CARMONA June 20, 2022 11:58am Advance Directives Yes November 12 7:05am Living Will Yes June 20 11:58am Power of Registered Mail Clerk Yes June 20, 2022 11:58am Advance Directive Response Recorded Date/ Time Advance Directives Yes November 12 7:05am Living Will No November 09, 2022 6:13am Power of Registered Mail Clerk No November 09 6:13am Advance Directive Response Recorded Date/ Time Advance Directives Yes November 12 7:05am Living Will No November 27, 2022 3:50am Power of Registered Mail Clerk No November 27 3:50am Latest Code Status on File Code Status Date Activated Date Inactivated Comments Full Code 12/31/2022 12:34 PM 12/31/2022 6:48 PM Advance Directive Response Recorded Date/ Time Name of Medical Power of Registered Mail Clerk RICKEY Epps February 27, 2023 4:21am Advance Directives Yes November 12 7:05am Living Will Yes February 27 4:21am Power of Registered Mail Clerk Yes February 27, 2023 4:21am Advance Directive Response Recorded Date/ Time Name of Medical Power of Registered Mail Clerk RICKEY JOSEPHINE & LEONARDA MATHEW February 27, 2023 8:09a m Advance Directives Yes November 12 7:05am Living Will Yes February 27 8:09am Power of Registered Mail Clerk Yes February 27, 2023 8:09am Advance Directive Response Recorded Date/ Time Name of Medical Power of Registered Mail Clerk RICKEY BEAULIEUH & LEONARDA MATHEW February 27, 2023 8:09a m Name of Medical Power of Registered Mail Clerk . March 17, 2023 8:05pm Advance Directives Yes November 12 7:05am Living Will Yes March 17 8:05pm Power of Registered Mail Clerk Yes March 17, 2023 8:05pm Advance Directive Response Recorded Date/ Time Name of Medical Power of Registered Mail Clerk RICKEY JOSEPHINE & LEONARDA MATHEW February 27, 2023 7:09a m Name of Medical Power of Registered Mail Clerk . March 17, 2023 7:05pm Advance Directives Yes November 12 6:05am Living Will Yes March 17 7:05pm Power of Registered Mail Clerk Yes March 17, 2023 7:05pm Latest Code Status on File Code Status Date Activated Date Inactivated Comments Full Code 12/31/2022 12:34 PM 12/31/2022 6:48 PM Advance Directive Response Recorded Date/ Time Advance Directives Yes November 12 7:05am Living Will Yes March 17 8:05pm Power of Registered Mail Clerk Yes March 17, 2023 8:05pm Advance Directive Response Recorded Date/ Time Living Will No April 19 3:59pm Power of Registered Mail Clerk No April 19, 2024 3:59pm Advance Directives Yes November 12 7:05am Advance Directive Response Recorded Date/ Time Advance Directives Yes November 12 7:05am Documents on File Type Date Recorded 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 No December 08, 2024 1:19am Do you have a Healthcare Power of Registered Mail Clerk? 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 No December 08, 2024 1:19am Do you have a Healthcare Power of Registered Mail Clerk? No January 05, 2025 12:16pm Do you have a Healthcare Power of Registered Mail Clerk? Yes February 18, 2025 4:26pm Advance Directives Yes November 12 7:05am Instructions Name Dates Details BMI 36.0-36.9,adult : [...] History of Present Illness * Fang Smallwood P - 10/25/2019 1:44 PM EDT Nephrology Progress Note Patient: Franklin Burton Room number: [id number] Date of Admit: 10/20/2019 LOS: 5 days [...] lung biopsy with palisaded granulomatous inflammation c/w sarah 2013 renal biopsy with segmental necrotizing glomerulitis [...] normal (not low) -discussed with pt/dtr Leonarda ([facility]) [phone]; with relapsing disease, initiate rituximab 375 mg/m2 [...] in 4 weeks. Fang Smallwood MD Pager [phone] [facility] [phone] HPI: Franklin Burton is a 74 y.o. male with chronic stable problems described in initial consult note. Interval history/events: States that he feels tired. Complains of being swimming headed when he stands up too quickly. Past Medical History: Diagnosis Date Allergic rhinitis BPH (benign prostatic hyperplasia) CHF (congestive heart failure) (HCC) Chronic back pain Chronic kidney disease Compression fracture spring 2014 T1 Diabetes mellitus (HCC) while on steroids had high glucose GERD (gastroesophageal reflux disease) Heart failure (HCC) EF 45% [place] (hard of hearing) RIGHT EAR AND HAS [...] lb 1.6 oz (89.9 kg) Height: 5' 6 (1.676 m) Admission weight: 207 lb 9.6 oz (94.2 kg) Wt Readings from Last 3 Encounters: 10/25/19 198 lb 1.6 oz (89.9 kg) 07/29/19 213 lb (96.6 kg) 07/22/19 215 lb (97.5 kg) Date 10/25/19 - 10/25/19 2359 Shift [id number] [id number] [id number] 24 Hour Total INTAKE P.O.(mL/kg/hr) 300(0.4) 240 [...] (H) 10/22/2019 Lab Results Component Value Date [id number] 05/29/2016 Recent Labs 10/23/19 0523 10/24/19 [...] PHOS 3.5 10/25/2019 No components found for: [id number] No results for input(s): COLORU, CLARITYU, PH, PHUR, LABSPEC, GLUCOSEU, BLOODU, LEUKOCYTESUR, NITRITE, BILIRUBINUR, UROBILINOGEN, RBCUA, WBCUA, BACTERIA, AMORPHOUS, CRYSTAL in the last 72 hours. Invalid input(s): PROTEINUA, KEYTONESU, CASTS Diagnostic Studies: Personally reviewed available data [labs, MARS, radiologic studies, and electronic records]. Pleasecall with any questions. * Marya Ramos MD - 10/25/2019 1:43 PM EDT [facility] Progress Note Franklin Burton : 1945(74 y.o.) Date: 10/25/19 Subjective: HPI The patient complains of : fatigue, sent in by check out cashier The patient feels their symptoms areunchanged no events or new concerns Chart and interval hx reviewed. Assuming care. 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 Patient lives far away and would need to come to [place] daily for steroid infusions for GN and [...] 45 16 96 % 10/25/19 0845 5' 6 (1.676 m) 198 lb 1.6 oz (89.9 [...] q 8 hour Disposition:await test results, await automotive service consultant recommendations and await clinical improvement I spent over 51% of total time providing counseling or incoordination of care: 35 minutes patient and family updated, I personally examined the patient and I personally reviewed chart, data, labs radiology reports D/w Dr. Smallwood extensively, informally d/w PCP 6AM-6PM please page: 6PM-6AM please page: [facility] * Fang Smallwood - 10/24/2019 3:09 PM EDT Nephrology Progress [...] lung biopsy with palisaded granulomatous inflammation c/w [place] 2013 renal biopsy with segmental necrotizing glomerulitis [...] normal (not low) -discussed with pt/dtr Leonarda ([facility]) [phone]; with relapsing disease, initiate rituximab 375 mg/m2 [...] Hyperkalemia - resolved Fang Smallwood MD Pager [phone] [facility] [phone] Ramos, dtr Leonarda HPI: [...] reflux disease) Heart failure (HCC) EF 45% [place] (hard of hearing) RIGHT EAR AND HAS [...] Pulse: 71 50 70 (!) 44 Resp: 18 16 Temp: 97.6 F (36.4 C) 96.7 F [...] (H) 10/22/2019 Lab Results Component Value Date [id number] 05/29/2016 Recent Labs 10/22/19 0630 10/23/19 [...] PHOS 4.0 10/24/2019 No components found for: [id number] No results for input(s): COLORU, CLARITYU, PH, PHUR, LABSPEC, GLUCOSEU, BLOODU, LEUKOCYTESUR, NITRITE, BILIRUBINUR, UROBILINOGEN, RBCUA, WBCUA, BACTERIA, AMORPHOUS, CRYSTAL in the last 72 hours. Invalid input(s): PROTEINUA, KEYTONESU, CASTS Diagnostic Studies: Personally reviewed available data [labs, MARS, radiologic studies, and electronic records]. Pleasecall with any questions. * Marya Ramos MD - 10/24/2019 8:09 AM EDT [facility] Progress Note Franklin Burton : 1945(74 y.o.) Date: 10/24/19 Subjective: HPI The patient complains of : fatigue, sent in by check out cashier The patient feels their symptoms areunchanged no events or new concerns Chart and interval hx reviewed. Assuming care. 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 Patient lives far away and would need to come to [place] daily for steroid infusions for GN and [...] 70 16 97 % 10/23/19 1232 5' 6 (1.676 m) 10/23/19 1151 (!) 147/82 97.7 [...] q 8 hour Disposition:await test results, await automotive service consultant recommendations and await clinical improvement I spent over 51% of total time providing counseling or incoordination of care: 35 minutes patient and family updated, I personally examined the patient and I personally reviewed chart, data, labs radiology reports D/w Dr. Smallwood 6AM-6PM please page: 6PM-6AM please page: [facility] * Fang Smallwood Lion - 10/23/2019 3:25 PM EDT Nephrology Progress [...] Hyperkalemia - resolved Fang Smallwood MD Pager [phone] [facility] [phone] Ramos HPI: Franklin Burton [...] reflux disease) Heart failure (HCC) EF 45% [place] (hard of hearing) RIGHT EAR AND HAS [...] lb 9.6 oz (97.8 kg) Height: 5' 6 (1.676 m) Admission weight: 207 lb 9.6 [...] (H) 10/22/2019 Lab Results Component Value Date [id number] 394 05/29/2016 Recent Labs 10/21/19 0121 10/22/19 [...] PHOS 3.5 10/23/2019 No components found for: [id number] No results for input(s): COLORU, CLARITYU, PH, PHUR, LABSPEC, GLUCOSEU, BLOODU, LEUKOCYTESUR, NITRITE, BILIRUBINUR, UROBILINOGEN, RBCUA, WBCUA, BACTERIA, AMORPHOUS, CRYSTAL in the last 72 hours. Invalid input(s): PROTEINUA, KEYTONESU, CASTS Diagnostic Studies: Personally reviewed available data [labs, MARS, radiologic studies, and electronic records]. Pleasecall with any questions. * Alyssa Carlson, RD, LD - 10/23/2019 12:53 PM EDT Nutrition Assessment Type and Reason for Visit: Initial(Lamp Inspector referral) Nutrition Recommendations: 1. Continue with diet [...] assess, 5. Fluid Accumulation-Unable to assess, 6. Child Protection Specialist Strength-Not measured Nutrition Risk Level: High Nutrition Diagnosis: Problem: Altered nutrition-related lab values Etiology: related to Renal dysfunction ? Signs and symptoms: as evidenced by Lab values Objective Information: Nutrition-Focused Physical Findings: + bowel sounds; Noted: Na 133, BUN 55^, Cr 3.58^, Glu 137 Current Nutrition Therapies: Oral Diet Orders: Carb Control 4 Carbs/Meal, Renal Oral Diet intake: 76-100% Anthropometric Measures: Ht: 5' 6 (167.6 cm) Current Body Wt: 215 lb (97.5 kg) [place] Body Wt: 142 lb (64.4 kg), % [place] Body 151% BMI Classification: BMI 30.0 - 34.9 Obese Class I Nutrition Interventions: Continue current diet Continued Inpatient Monitoring Nutrition Evaluation: Evaluation: Goals set Goals: Pt. to consume >75% po diet. Monitoring: Nutrition Progression, Monitor Bowel Function, Monitor Hemodynamic Status, Pertinent Labs, Diet Tolerance, Meal Intake, Skin Integrity, I&O, Weight Contact Number: pager [phone] * Marya Ramos MD - 10/23/2019 8:21 AM EDT [facility] Progress Note Franklin Burton : 1945(74 y.o.) Date: 10/23/19 Subjective: HPI The patient complains of : fatigue, sent in by check out cashier The patient feels their symptoms areunchanged no events or new concerns Chart and interval hx reviewed. Assuming care. 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 Patient lives far away and would need to come to [place] daily for steroid infusions for GN and [...] q 8 hour Disposition:await test results, await automotive service consultant recommendations and await clinical improvement I spent over 51% of total time providing counseling or incoordination of care: 35 minutes patient and family updated, I personally examined the patient and I personally reviewed chart, data, labs radiology reports 6AM-6PM please page: 6PM-6AM please page: [facility] * Fang Smallwood - 10/22/2019 9:16 AM EDT Nephrology Progress Note Patient: Franklin Burton Room number: [id number] Date of Admit: 10/20/2019 LOS: 2 days Admitting physician: Marya Ramos MD Referring [...] Awaiting renal bx results, left message with [facility] pathology. Making sure we are not [...] rituximab + steroids. Fang Smallwood MD Pager [phone] [facility] [phone] HPI: Franklin Burton is a 74 y.o. male with chronic stable problems described in initial consult note. Interval history/events: NAEO. Patient states that he feels marginally better. Past Medical History: Diagnosis Date Allergic rhinitis BPH (benign prostatic hyperplasia) CHF (congestive heart failure) ([facility]) Chronic back pain Chronic kidney disease Compression fracture spring 2014 T12 Diabetes mellitus (HCC) while on steroids had high glucose GERD (gastroesophageal reflux disease) Heart failure (HCC) EF 45% [place] (hard of hearing) RIGHT EAR AND HAS [...] Date 10/22/19 0000 - 10/22/19 2359 Shift [id number] 1699-6329 8210-5462 24 Hour Total INTAKE P.O.(mL/kg/hr) 200(0.3) 360 [...] LABS: Recent Labs 10/21/19 0121 10/22/19 0630 WBC 5.0 5.4 HGB 9.5* 10.2* HCT 28.7* 31.3* MCV 82.1 81.7 PLT 188 186 Lab Results Component Value Date IRON 38 (L) 10/22/2019 TIBC 233 (L) 10/22/2019 FERRITIN 516 (H) 10/22/2019 Lab Results Component Value Date [id number] 394 05/29/2016 Recent Labs 10/21/19 0121 10/22/19 0630 NA 134* 132* K 4.9 5.2* CL 104 104 CO2 21* 19* BUN 46* 47* CREATININE 3.62* 3.54* GLUCOSE 126* 211* CALCIUM 8.9 9.1 PHOS 4.2 2.3* ANIONGAP 10 9 Lab Results Component Value Date CALCIUM 9.1 10/22/2019 PHOS 2.3 (L) 10/22/2019 No components found for: DLHG40P No results for input(s): COLORU, CLARITYU, PH, PHUR, LABSPEC, GLUCOSEU, BLOODU, LEUKOCYTESUR, NITRITE, BILIRUBINUR, UROBILINOGEN, RBCUA, WBCUA, BACTERIA, AMORPHOUS, CRYSTAL in the last 72 hours. Invalid input(s): PROTEINUA, KEYTONESU, CASTS Diagnostic Studies: Personally reviewed available data [labs, MARS, radiologic studies, and electronic records]. Pleasecall with any questions. * Marya Ramos MD - 10/22/2019 9:01 AM EDT [facility] Progress Note Franklin Burton : 1945(74 y.o.) Date: 10/22/19 Subjective: HPI The patient complains of : fatigue, sent in by check out cashier The patient feels their symptoms areunchanged no events or new concerns Chart and interval hx reviewed. Assuming care. 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 Patient lives far away and would need to come to [place] daily for steroid infusions for GN and [...] q 8 hour Disposition:await test results, await automotive service consultant recommendations and await clinical improvement I spent over 51% of total time providing counseling or incoordination of care: 35 minutes patient and family updated, I personally examined the patient and I personally reviewed chart, data, labs radiology reports D/w Dr. Smallwood (nephro) 6AM-6PM please page: 6PM-6AM please page: [facility] * Maegan Jackson - 10/22/2019 9:01 AM EDT Nutrition rescreen completed. Patient referred to the Dietitian. Maegan Jackson DT * Sindhu Ballard RN - 10/21/2019 10:17 AM EDT Patient arrived to US department for right kidney biopsy. Dr. Mclean in to speak with patient regarding procedure and informed consent obtained. Patient placed pron . monitoring manager on and initial scan done. Right mid back marked, prepped and drapped in sterile fashion per protocol. core needle biopsies obtained and sent to lab. Bandaid applied to site. Patient tolerated procedure well. * Marya Ramos MD - 10/21/2019 8:05 AM EDT [facility] Progress Note Franklin Burton : 1945(74 y.o.) Date: 10/21/19 Subjective: HPI The patient complains of : fatigue, sent in by check out cashier The patient feels their symptoms areunchanged no events or new concerns Chart and interval hx reviewed. Assuming care. 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 Patient lives far away and would need to come to [place] daily for steroid infusions for GN and renal biopsy. Endorsed fatigue (worsened than normal). Seen this morning after biopsy. Biggest complaint is hunger and wants to eat lunch. Denies pain from biopsy currently. No chest pain or SOB right now - endorses feeling winded with movement. No dysuria or hematuria Scheduled [...] C) Temporal 70 18 98 % 5' 6 (1.676 m) 207 lb 9.6 oz (94.2 [...] q 8 hour Disposition:await test results, await automotive service consultant recommendations and await clinical improvement I spent over 51% of total time providing counseling or incoordination of care: 35 minutes patient and family updated, I personally examined the patient and I personally reviewed chart, data, labs radiology reports D/w SEBAS Smith 6AM-6PM please page: 6PM-6AM please page: [facility] documented in this encounter* Evangelina Santos RN - 11/01/2019 8:00 AM EDT Pt arrived [...] pt voices understanding. documented in this encounter* Kyler Guzman RN - 11/15/2019 8:10 AM EDT Patient arrived via stating he is extremely tired and that each treatment seems to take longer to get over. He does take beta blockers before treatment. [...] AM EDT Left message for Beatriz Abdul CART PUSHER patient refused Lovenox and Aspirin. Patient educated patient on rationale for medications, patient still refused. * Beatriz Abdul APRN - MIGDALIA - 12/14/2019 9:44 AM EDT CDU Progress [...] a week with the last time being Mon/Tues last week. States heuses a clean cath [...] Date 12/14/19 0000 - 12/14/19 2359 Shift [id number] 8990-9913 7183-4856 24 Hour Total INTAKE Shift Total(mL/kg) OUTPUT [...] 0.4 (L) 1.0 - 4.3 10*3/uL Absolute [place] # 0.4 0.0 - 0.8 10*3/uL Absolute [...] 22.6 (A) >60 mL/min EGFR IF NonAfrican [place] 19.5 (A) >60 mL/min Calcium 8.6 8.4 [...] Urine 6.0 5.0 - 8.0 NA Specific [place], Urine 1.012 1.005 - 1.030 NA Occult [...] (36.2 C) (Temporal) Resp 11 Ht 5' 6 (1.676 m) Wt 195 lb (88.5 kg) [...] DSE today. Will obtain cardiac records from [facility]. 2. Weakness/Fatgue: electrolytes WNL, TSH wnl, and echo, UA positive - placed on Cipro 400 BID for 3 days per pharmacy recommendation - culture pending. 3. Abdominal pain: work-up so far is benign, will obtain records from [facility] 4. CKD: creatinine at baseline 5. [...] reflux disease) Heart failure (HCC) EF 45% [place] (hard of hearing) 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 Hypertension Obesity ROYAL (obstructive sleep apnea) Osteoarthritis Restless legs syndrome Status post right hip replacement 03/19/2016 Urge incontinence 07/24/2016 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HCC) -DVT prophylaxis: [x] Lovenox [] Heparin [] [...] to preserve PPE for other caregivers, a [id number] encounter with the patient was not performed. [...] EST Belongings taken to pt admit room [address] [place] documented in this encounter Assessments Diagnosis Zach's-associated [...] through Care Everywhere. * Chest Pain: Musculoskeletal (Ukrainian) * UTI (Urinary Tract Infection): Male (Ukrainian) documented in this encounter* Attachments The following attachments cannot be sent through Care Everywhere. * TURP: Post-op (Ukrainian) documented in this encounter* Instructions* Yoseph Randolph [...] as Dial or Safeguard. Please bring your [facility] Information folder on the day of [...] your surgeon. You may use the free implementation engineer parking located at the main entrance on [address] [facility] and take the H elevator to the first floor for same day surgery. Take a left after exiting the elevator and checkin at the desk. * Attachments The following attachments cannot be sent through Care Everywhere. * TURP: Pre-op (Ukrainian) documented in this encounter Chief Complaint and [...] FU GROWTH ON LIP CONSTIPATION SYNCOPE Syncope [facility] fu WOUND Reason for Visit [...] Complaint GROWTH ON LIP CONSTIPATION SYNCOPE Syncope [facility] fu WOUND DEPRESSION/RESTLESS LEG Reason [...] on dialysis Chief Complaint CONSTIPATION SYNCOPE Syncope [facility] fu WOUND DEPRESSION/RESTLESS LEG Amb [...] Chronic insomnia September 07, 2024 8:2 4am Chief Complaint Admit Date 3 M FU September 07, 2024 8:2 4am ACUTE-ITCHY AREAS ON WRIST/ANKLE September 1:02pm [facility]OSP [facility]/3 m December 07 9:49am general illness December 08, 2024 1:14 am COMPLAINT January 05, 2025 12 :16pm Reason for Visit Admit Date Chronic neuropathic [...] Chronic insomnia September 07, 2024 8:2 4am Rash October 15, 2024 1:02p m Chronic neuropathic pain December 07, 2024 9:49am RLS (restless legs syndrome) December 07, 2024 9:49am Chronic back pain December 07, 2024 9:49 am Essential hypertension December 07, 2024 9 :49am Prediabetes December 07, 2024 9:49 am Zach's granulomatosis December 07, 2024 9:49am Elevated PSA December 07, 2024 9:49 am Heartburn December 07, 2024 9:49 am Chronic insomnia December 07, 2024 9:49 am Delirium December 07, 2024 9:49 am Hospital discharge follow-up December 07, 2024 9:49am Chief Complaint Admit Date [facility]P [facility] December 07 9:49am general illness December 08, 2024 1:14 am COMPLAINT January 05, 2025 12 :16pm Gross hematuria February 01, 2025 3:33pm Reason for Visit Admit Date Chronic neuropathic pain December 07, 2024 9:49am RLS (restless legs syndrome) December 07, 2024 9:49am Chronic back pain December 07, 2024 9:49 am Essential hypertension December 07, 2024 9 :49am Prediabetes December 07, 2024 9:49 am Zach's granulomatosis December 07, 2024 9:49am Elevated PSA December 07, 2024 9:49 am Heartburn December 07, 2024 9:49 am Chronic insomnia December 07, 2024 9:49 am Delirium December 07, 2024 9:49 am Hospital discharge follow-up December 07, 2024 9:49am Chief Complaint Admit Date [facility]P [facility] December 07 9:49am general illness December 08, 2024 1:14 am COMPLAINT January 05, 2025 12 :16pm Gross hematuria February 01, 2025 3:33pm Circumcision February 23, 2025 11 :07am Chief Complaint Admit Date [facility] December 07 9:49am general illness December 08, 2024 1:14 am COMPLAINT January 05, 2025 12 :16pm Gross hematuria February 01, 2025 3:33pm Circumcision February 23, 2025 11 :07am CONSULT FOR FISTULAGRAM March 04 2:11pm Arteriovenous fistula, acquired March 14, 2025 12:41pm Reason for Visit Admit Date Chronic neuropathic pain December 07, 2024 9:49am RLS (restless legs syndrome) December 07, 2024 9:49am Chronic back pain December 07, 2024 9:49 am Essential hypertension December 07, 2024 9 :49am Prediabetes December 07, 2024 9:49 am Zach's granulomatosis December 07, 2024 9:49am Elevated PSA December 07, 2024 9:49 am Heartburn December 07, 2024 9:49 am Chronic insomnia December 07, 2024 9:49 am Delirium December 07, 2024 9:49 am Hospital discharge follow-up December 07, 2024 9:49am AV fistula March 04, 2025 2 :11pm End stage renal disease on dialysis Octo 2024 2:11pm Additional Source Comments (unrecognized sect ion and content) No Status Records FoundNo Status Records FoundNo Status Records FoundNo Status Records FoundNo Status Records FoundNo Status Records FoundNo Status Records FoundNo Status Records FoundNo Status Records Found INFORMATION SOURCE (unrecogn ized section and content) DATE CREATED AUTHOR 01/09/2018 [facility] DATE CREATED AUTHOR AUTHOR'S ORGANIZ ATION 08/04/2018 [facility] DATE CREATED AUTHOR AUTHOR'S ORGANIZ ATION 02/22/2021 [facility] DATE CREATED AUTHOR AUTHOR'S ORGANIZ ATION 07/12/2021 [facility] DATE CREATED AUTHOR AUTHOR'S ORGANIZ ATION 04/02/2023 [facility] DATE CREATED AUTHOR AUTHOR'S ORGANIZ ATION 12/03/2024 [facility] DATE CREATED AUTHOR AUTHOR'S ORGANIZ ATION 12/27/2024 [facility] DATE CREATED AUTHOR AUTHOR'S ORGANIZ ATION 02/24/2025 [facility] DATE CREATED AUTHOR AUTHOR'S ORGANIZ ATION 03/31/2025 [facility] Reason for Visit (unrecogniz ed [...] X4 days Reason Comments New Patient ALS CART PUSHER CONSULT PD CA TH Specialty Diagnoses / Procedures Referred By Contac t Referred To Contact General Surgery Diagnoses Chronic kidney disease, stage 4 (severe) (HCC) Procedures TX OFFICE CONSULTATION NEW/ESTAB PATIENT 15 MIN Daniel Pacheco MD [facility] [place] [address] Elroy Thomas MD [address] [place] [address] Referral ID Status Reason Start Date Expiration Date V isits Requested Visits Authorized [id number] Pending Review 12/13/2022 05/23/2023 1 1 Reason Onset Date Comments Release of Information 12/19/2022 Specialty Diagnoses / Procedures Referred By Dahlia rico Referred To Contact Diagnoses End stage renal disease (HCC) End stage renal disease (HCC) [N18.6] Procedures TX LAPS INSERTION TUNNELED INTRAPERITONEAL CATHETER TX LAPAROSCOPY W/OMENTOPEXY LAPAROSCOPIC CONTINUOUS AMBULATORY PERITONEAL DIALYSIS CATHETER PLACEMENT WITH OMENTOPEXY, POSSIBLE OPEN LAPAROSCOPY WITH OMENTOPEXY (OMENTAL TACKING PROCEDURE) Elroy Thomas MD [address] [place] [address] [address] [place] [address] [facility] Or [address] [place] [address] Referral ID Status Reason Start Date Expiration Date Visits Re quested Visits Authorized [id number] 1 1 Reason Comments New Patient Right hip pain, h/o right ANGEL DOS 02/05/2016 Reason Comments Establish Care Reason Comments [id number] Palliative Care Goals (unrecognized section and content) Goals may [...] MD Attending Provider, Referr ing Provider Active Humanities Coordinator Relationship Specialty Start Date End Date Rahel Mendez MD [address] [place] [id number] PCP - General 10/17/18 Team Status: Inactive [...] Dr. Beau Cardenas DO Emergency Provider Active Humanities Coordinator Relationship Specialty Start Date End Date Rahel Mendez MD [address] [place] [address]. [address] [place] [id number] PCP - General 10/17/18 Humanities Coordinator Relationship Specialty Start Date End Date Rahel Mendez MD [address] [place] [address] [address] [place] [id number] PCP - General 10/17/18 Humanities Coordinator Relationship Specialty Start Date End Date Rahel Mendez MD [address] [place] [address] [address] [place] [address] PCP - General 10/17/18 Humanities Coordinator Relationship Specialty Start Date End Date Rahel Mendez MD [address] [place] [id number] PCP - General 10/17/18 Humanities Coordinator Relationship Specialty Start Date End Date Rahel Mendez MD [address] [place] [id number] PCP - General 10/17/18 Humanities Coordinator Relationship Specialty Start Date End Date Rahel Mendez MD [address] [place] [address] PCP - General 10/17/18 Humanities Coordinator Relationship Specialty Start Date End Date Rahel Mendez MD [address] [place] [address] PCP - General 10/17/18 Team Status: Inactive Member Role Status Dates Dr. Matilde Noguera MD Primary Care Provider Active Dr. Beau Cardenas DO Attending Provider, Emergency Pr ovider Active Team Status: Inactive Member Role Status Dates Dr. Matilde Noguera MD Primary Care Provider Active Dr. Ashely Aguilar DO Emergency Provider Active Team Status: [...] Noguera MD Primary Care Provider Active Dr. Ashely Aguilar DO Attending Provider, Emergency P ben [...] Provider, Referri ng Provider Active José Miguel [place], [place] Attending Provider Active Team Status: Inactive [...] Noguera MD Primary Care Provider Active Start: October 15, 2024 End: October 15, 2024 Dr. Matilde Noguera MD Referring Provider Active Start: October 15, 2024 End: October 15, 2024 JULIUS Thomas Attending Provider Active St art: October 15, 2024 End: October 15, 2024 Humanities Coordinator Relationship Specialty Start Date End Date Matilde Noguera MD [address] [place], [place] [id number] PCP - General Internal Medicine 11/25/24 Team Status: Active Member Role/Relationship Status Dates Dr. Kyler Garcia MD Primary Care Provider Activ e Team Status: Inactive Member Role/Relationship Status Dates Dr. Matilde Noguera MD Primary Care Provider Active Start: September 07, 2024 End: September 07, 2024 Dr. Matilde Noguera MD Attending Provider Active Start: September 07, 2024 End: September 07, 2024 Dr. Matilde Nougera MD Referring Provider Active Start: September 07, 2024 End: September 07, 2024 Team Status: Inactive Member Role/Relationship Status Dates Dr. Matilde Noguear MD Primary Care Provider Active Start: October 15, 2024 End: October 15, 2024 Dr. Matilde Noguera MD Referring Provider Active Start: October 15, 2024 End: October 15, 2024 JULIUS Thomas Attending Provider Active St art: October 15, 2024 End: October 15, 2024 Team Status: Inactive Member Role/Relationship Status Dates Dr. Matilde Noguera MD Primary Care Provider Active Start: December 07, 2024 End: December 07, 2024 Dr. Matilde Noguera MD Attending Provider Active Start: December 07, 2024 End: December 07, 2024 Dr. Matilde Noguera MD Referring Provider Active Start: December 07, 2024 End: December 07, 2024 Team Status: Inactive Member Role/Relationship Status Dates Dr. Matilde Noguera MD Primary Care Provider Active Start: December 08, 2024 End: December 08, 2024 Dr. Beau Cardenas , DO Attending Provider Active Start: December 08, 2024 End: December 08, 2024 Dr. Beau Cardenas , DO Emergency Provider Active Start: December 08, 2024 End: December 08, 2024 Team Status: Inactive Member Role/Relationship Status Dates Dr. Vinay Gomez MD Emergency Provider Active S tart: January 05, 2025 End: January 05, 2025 Dr. Kyler Garcia MD Primary Care Provider Activ e Start: January 05, 2025 End: January 05, 2025 Humanities Coordinator Relationship Specialty Start Date End Date Kyler Garcia MD [address] [place], [place] [address] PCP - General Internal Medicine/Pediatrics 01/13/25 Humanities Coordinator Relationship Specialty Start Date End Date Kyler Garcia MD [address] [place], [place] [id number] PCP - General Internal Medicine/Pediatrics 01/13/25 Humanities Coordinator Relationship Specialty Start Date End Date Kyler Garcia MD [address] [place] [address] PCP - General Internal Medicine/Pediatrics 01/13/25 Humanities Coordinator Relationship Specialty Start Date End Date Kyler Garcia MD [address] [place] [address] PCP - General Internal Medicine/Pediatrics 01/13/25 Team Status: Active Member Role/Relationship Status Dates Dr. Matilde Noguera MD Primary care physician Active Team Status: Inactive Member Role/Relationship Status Dates Dr. Matilde Noguera MD Primary care physician Active Start: December 07, 2024 End: December 07, 2024 Dr. Matilde Noguera MD Attending physician Active Start: December 07, 2024 End: December 07, 2024 Dr. Matilde Noguera MD Referring Provider Active Start: December 07, 2024 End: December 07, 2024 Team Status: Inactive Member Role/Relationship Status Dates Dr. Matilde Noguera MD Primary care physician Active Start: December 08, 2024 End: December 08, 2024 Dr. Beau Cardenas DO Attending physician Active Start: December 08, 2024 End: December 08, 2024 Dr. Beau Cardenas DO Emergency Department Physician A ctive Start: December 08, 2024 End: December 08, 2024 Team Status: Inactive Member Role/Relationship Status Dates Dr. Vinay Gomez MD Attending physician Active Start: January 05, 2025 End: January 05, 2025 Dr. Vinay Gomez [facility] Active Start: January 05, 2025 End: January 05, 2025 Dr. Kyler Garcia MD Primary care physician Acti ve Start: January 05, 2025 End: January 05, 2025 Team Status: Inactive Member Role/Relationship Status Dates Dr. Matilde Noguera MD Primary care physician Active Start: February 01, 2025 End: February 01, 2025 Dr. Kael Decker MD Attending physician Active Start: February 01, 2025 End: February 01, 2025 Dr. Kael Decker MD Referring Provider Active Start: February 01, 2025 End: February 01, 2025 Team Status: Active Member Role/Relationship Status Dates Dr. Kyler Garcia MD Primary care physician Acti ve Team Status: Inactive Member Role/Relationship Status Dates Dr. Kael Decker MD Attending physician Active Start: February 23, 2025 End: February 23, 2025 Dr. Kael Decker MD Referring Provider Active Start: February 23, 2025 End: February 23, 2025 Dr. Kyler Garcia MD Primary care physician Acti ve Start: February 23, 2025 End: February 23, 2025 Team Status: Inactive Member Role/Relationship Status Dates Dr. Kyler Garcia MD Primary care physician Acti ve Start: March 04, 2025 End: March 04, 2025 Dr. Kyler Garcia MD Referring Provider Active Start: March 04, 2025 End: March 04, 2025 JULIUS Regalado Attending physician Active Sta rt: March 04, 2025 End: March 04, 2025 Team Status: Active Member Role/Relationship Status Dates Dr. Kyler Garcia MD Primary care physician Acti ve Start: March 14, 2025 JULIUS Regalado Attending physician Active Sta rt: March 14, 2025 JULIUS Regalado Referring Provider Active Star t: March 14, 2025 Team Status: Active Member Role/Relationship Status Dates Dr. Kyler Garcia MD Primary care physician Acti ve Start: March 14, 2025 Dr. Jesus Milligan MD Attending physician Active Start: March 14, 2025 Source Comments (unrecognize d section and content) In the event this informatio n is protected by the Federal Confidentiality of Alcohol and Drug Abuse Patient Records regulations: The Federal rules restrict any use of the information to criminally investigate or prosecute any alcohol or drug abuse patient.[facility] the event this information is protected by the Federal Confidentiality of Alcohol and Drug Abuse Patient Records regulations: The Federal rules restrict any use of the information to criminally investigate or prosecute any alcohol or drug abuse patient.[facility] the event this information is protected by the Federal Confidentiality of Alcohol and Drug Abuse Patient Records regulations: The Federal rules restrict any use of the information to criminally investigate or prosecute any alcohol or drug abuse patient.[facility] the event this information is protected by the Federal Confidentiality of Alcohol and Drug Abuse Patient Records regulations: The Federal rules restrict any use of the information to criminally investigate or prosecute any alcohol or drug abuse patient.[facility] the event this information is protected by the Federal Confidentiality of Alcohol and Drug Abuse Patient Records regulations: The Federal rules restrict any use of the information to criminally investigate or prosecute any alcohol or drug abuse patient.[facility] the event this information is protected by the Federal Confidentiality of Alcohol and Drug Abuse Patient Records regulations: The Federal rules restrict any use of the information to criminally investigate or prosecute any alcohol or drug abuse patient.[facility] Scheduled Active and Recently Administ ered [...] 2,000 mg, IntraVENous, Administer over 30 Minutes, [employer] On Fri12/31/22 at 1245, For 1 dose, Preprocedure, Administer within 1 hour prior to incision. Recommend to repeat in 3-4 hours after initial dose if still intra-op. premix bag, Suspected Indication (Select all that apply): Surgical Prophylaxis 1355 (Given - Provid er: Rambo Cervantes APRN - EMERGENCY CREW SUPERVISOR) famotidine (Pepcid) tablet 20 mg (COMPLETED) 20 [...] Fri11/25/24 at 2100 2106 (Given - Provider: Nathanael Coelho RN) 2140 (Given - Provider: Madisyn Pereira, SEBAS) azaTHIOprine (Imuran) tablet 50 mg 50 [...] La O RN - Reason: Patient not available)2140 (Given - Provider: Madisyn Pereira, SEBAS) 1019 (Given - Provider: Glen Hall) clopidogrel (Plavix) tablet 75 mg 75 mg, Oral, Daily, First dose on Fri11/25/24 at 0900 0837 (Given - Provider: Nia Alonso) 1022 (Given - Provider: Glen Hall) 1009 (Given - Provider: Glen Hall) gabapentin (Neurontin) capsule 200 mg (CANCELED) 200 mg, Oral, Nightly, First dose on Fri11/25/24 at 2100 2104 (Given - Provider: Nathanael Coelho RN) 2139 (Given - Provider: Madisyn Pereira, SEBAS) gabapentin (Neurontin) capsule 300 mg 300 mg, Oral, Nightly, First dose (after last modification) on Fri11/30/24 at 2100 heparin injection 5,000 Units 5,000 Units, SubCUTAneous, Every 12 hours scheduled (2 times per day), First dose on Fri11/25/24 at 0900 0837 (Not Given - Provider: Nia Alonso - Reason: Patient/family refused)2104 (Given - Provider: Nathanael Coelho RN) 1021 (Given - Provider: Glen Hall)2138 (Not Given - Provider: Madisyn Pereira RN - Reason: Patient/family refused) 101 (Not Given - Provider: Glen Hall - Reason: Patient/family refused) hydrOXYzine pamoate (Vistaril) capsule 25 mg (COMPLETED) 25 mg, Oral, Once, On Fri11/28/24 at 1930, For 1 dose 2103 (Given - Provider: Nathanael Coelho, SEBAS) melatonin tablet 5 mg 5 mg, Oral, Nightly, First dose on Fri11/28/24 at 2345 2341 (Given - Provider: Nathanael Coelho, SEBAS) 2138 (Given - Provider: Madisyn Pereira, SEBAS) metoprolol tartrate (Lopressor) tablet 25 mg 25 mg, Oral, 2 times daily, First dose on Fri11/25/24 at 0900 0837 (Given - Provider: Nia Alonso)2104 (Given - Provider: Nathanael Coelho, SEBAS) 102 (Given - Provider: Glen Hall)2139 (Given - Provider: Madisyn Pereira, SEBAS) 100 (Given - Provider: Glen Hall) phosphorus (K Phos Neutral) tablet 1 tablet (COMPLETED) 1 tablet (250 mg), Oral, Once, On Fri11/28/24 at 1600, For 1 dose, Each tablet contains 250 mg phosphorus, 298 mg sodium, 1.1 mEq potassium. 1727 (Given - Provider: Nia Alonso) QUEtiapine (SEROquel) tablet 25 mg 25 mg, Oral, Nightly, First dose on 11/27/24 at 2100 2106 (Given - Provider: Nathanael Coelho RN) 2139 (Given - Provider: Madisyn Pereira RN) senna-docusate [...] = 20 mL/lumen 0544 (Given - Provider: Nathanael Coelho RN)1732 (Given - Provider: Nia Alonso) 0548 (Given - Provider: Nathanael Coelho RN)1739 (Not Given - Provider: Glen De La O RN - Reason: Patient not available) 0546 (Given - Provider: Madisyn Pereira RN) tamsulosin (Flomax) 24 hr capsule 0.4 mg 0.4 mg, Oral, Daily, First dose on Samia 11/25/24 at 0900, Do not crush, chew, or split. 0837 (Given - Provider: Nia Alonso) 1022 (Given - Provider: Glen Hall) 1009 (Given - Provider: Glen Hall) PRN Medication Order 11/28/2024 11/29/2024 11/30/2024 benzocaine (Hurricaine) 20 % mouth spray 2 spray 2 spray, Mouth/Throat, PRN, sore throat, Starting on Sun 25 at 1049 1249 (Given - Provider: Glen Hall) 1012 (Given - Provider: Glen Hall) carboxymethylcellulose PF (Refresh Plus) 0.5 % ophthalmic solution 1 drop 1 drop, Both Eyes, 4 times daily PRN, dry eyes, Starting on Fri11/26/24 at 1307 dextrose 5 % infusion 100 mL/hr, IntraVENous, PRN, Blood sugar less than 70mg/dL, Starting on Fri11/25/24 at 1710, Start infusion following administration of [...] As needed, low blood sugar, Starting on Fri11/25/24 at 1710, If blood glucose less than [...] For 1 dose 0246 (Given - Provider: Nathanael Coelho RN) haloperidol (Haldol) tablet 2 mg (COMPLETED)(Linked Group 2) 2 mg, Oral, Once PRN, agitation, Starting on Fri11/28/24 at 2337, For 1 dose 2341 (Given - Provider: Nathanael Coelho, SEBAS) haloperidol lactate (Haldol) injection 0.5 mg 0.5 mg, IntraMUSCular, Every 6 hours PRN, agitation, second line for agitation, [place] PRN Haldol for ONLY if danger to [...] sedation for opioid reversal - MUST notify email operations manager provider immediately after first dose, may give [...] times daily PRN, agitation, first line for agitation,[place] PRN Seroquel for ONLY if danger to [...] line interruptions / long duration, Starting on Fri11/25/24 at 0619, For piggyback infusion, administer at [...] After every IV line use, Starting on Fri11/25/24 at 0619, For Line Patency: Peripheral IV [...] on Fri11/28/24 at 0229, For 1 dose Or haloperidol lactate (Haldol) injection 2 mg (COMPLETED) 2 mg, IntraMUSCular, Once PRN, agitation, Starting on Fri11/28/24 at 0229, For 1 dose, Unable to IM route of administration preferred. Because of the risk of TdP and QT prolongation, ECG monitoring is recommended if haloperidol is given IV Group 2: haloperidol (Haldol) tablet 2 mg (COMPLETED)Jump to med 2 mg, Oral, Once PRN, agitation, Starting on Fri11/28/24 at 2337, For 1 dose Or haloperidol [...] BE BASED ON THE PRIMARY CLINICAL RECORDS. [employer] provides no warranty or guarantee of the accuracy or completeness of information in this document.
--- NOTE | 2025-04-20 20:40 | RAD_ITS ---
PROCEDURE: CHEST PA AND LATERAL 04/20/2025 REASON FOR EXAM: DYSPNEA TECHNIQUE: Procedure Code: RADCXR Modality: DX Procedure: CHEST PA AND LATERAL COMPARISON: 12/08/2024 FINDINGS: No focal consolidation, pneumothorax, or pleural effusion appreciated. Cardiac silhouette is top-normal in size. No significant vascular congestion. Multilevel degenerative changes of the spine. RAD/Chest PA and Lateral IMPRESSION: No evidence of acute cardiopulmonary disease. Reading Location: [id number]
--- NOTE | 2025-04-20 20:41 | EKG12_ITS ---
Test Reason : SOB Blood Pressure : */* mmHG Vent. Rate : 85 BPM Atrial Rate : 85 BPM P-R Int : 158 ms QRS Dur : 70 ms QT Int : 356 ms P-R-T Axes : 60 28 39 degrees QTcB Int : 423 ms Sinus rhythm with Premature supraventricular complexes and with occasional Premature ventricular complexes Otherwise normal ECG Confirmed by AFSHAN SUMMERS, DAVID ([id number]), fashion editor SHEFALI BRODY ([id number]) on 04/22/2025 9:05:53 AM Referred By: Confirmed By: DAVID CAVANAUGH MD
[2025-04-20 20:46] LABS: Mucous, Urine 0 SEEN /hpf (<or=2+)
[2025-04-20 20:54] LABS: Hematocrit 34.1 % (40-54); Hemoglobin 10.9 g/dL (13.0-16.5); Immature Granulocytes Count 0.090 X10^3/uL (0.0-0.0); Mean Corp Hgb Conc 32.0 g/dL (32-36); Mean Corpuscular Volume 97.7 fL (80-94); Mean Platelet Vol. 9.7 fl (6.2-12.0); NRBC Flagged by Analyzer 0 % (0-5); Platelet Count 122 K/mm3 (150-450); RBC Distribution Width CV 14.5 % (11.6-14.6); RBC Distribution Width SD 52.3 fl (35.1-43.9); Red Blood Count 3.49 M/mm3 (4.6-6.2); White Blood Count 7.5 K/mm3 (4.4-11.0)
[2025-04-20 21:01] LABS: Troponin T High Sensitivity 25 ng/L (<=22)
[2025-04-20 21:03] LABS: Anion Gap 11 (5-15); BUN 30 mg/dL (4-19); BUN/Creat Ratio 9.4 RATIO (10-20); Calcium,Total 8.9 mg/dL (7.6-11.0); Carbon Dioxide 26.8 mmol/L (21.0-32.0); Chloride 100 mmol/L (98-108); Estimated Creatinine Clearance 22.62 ml/min (50-250); Glucose 146 mg/dL (70-99); Potassium 4.3 mmol/L (3.3-5.1); Pro- Brain NATRIURETIC PEPTIDE 2096 pg/mL (<=1800)
[2025-04-20 21:06] LABS: Color, Urine Yellow (Yellow); Glucose, Dipstick 250 mg/dl (Normal); Ketone-Dipstick Negative (Negative); Leukocyte Esterase-Dipstick Negative /ul (Negative); Nitrite-Dipstick Negative (Negative); Occult Blood-Urine Negative /ul (Negative); Protein-Dipstick 30 mg/dl (Negative); Specific Gravity, Urine 1.010 (1.002-1.030); Urine Bilirubin Dipstick Negative (Negative)
[2025-04-20 21:26] LABS: Red Blood Cells-Urine 0-5 SEEN /hpf (0-5); Squamous Epithelial Cells - UA 0-5 SEEN /hpf (0-5)
[2025-04-20 22:26] LABS: Troponin T High Sens 2 HR 25 ng/L (<=22)
== END 2025-04-20 23:04 | disposition home or self-care (01) ==
PROVIDERS: Emergency Provider Emergency Medicine; PCP Pediatrics; Visit Provider Emergency Medicine
DX: I13.0 Hypertensive heart and chronic kidney disease with heart failure and stage 1 through stage 4 chronic kidney disease, or unspecified chronic kidney disease (principal); M06.9 Rheumatoid arthritis, unspecified; M31.30 Wegener's granulomatosis without renal involvement; I50.22 Chronic systolic (congestive) heart failure; N18.30 Chronic kidney disease, stage 3 unspecified; Z99.2 Dependence on renal dialysis; D64.9 Anemia, unspecified; I49.1 Atrial premature depolarization; K21.9 Gastro-esophageal reflux disease without esophagitis; N40.0 Benign prostatic hyperplasia without lower urinary tract symptoms; G62.9 Polyneuropathy, unspecified; G25.81 Restless legs syndrome; G47.33 Obstructive sleep apnea (adult) (pediatric); Z79.899 Other long term (current) drug therapy; Z87.891 Personal history of nicotine dependence
CPT/HCPCS: 71046; 80048; 81001; 83880; 84484; 85025; 93005; 96374; 99284; A4216; J1938